=== PATIENT | female | born 1995 | race Caucasian/White ===

== ENCOUNTER 2023-09-01 09:38 | Outpatient (OUT) | payer OTHER, SELFPAY ==
--- NOTE | 2023-09-01 09:55 | US_ITS ---
The [address] [address] Patient Name: BARBY HERRING MRN: [id number] date: 1995 Sex: F Assigned Patient Location: US Current Patient Location: US Accession/Order Number: [id number] Exam Date: 09/01/2023 09:56 Report Date: 09/01/2023 10:35 At the request of: GAMAL ADAN Procedure: US pelvis w/ transvaginal EXAM: Pelvic ultrasound HISTORY: . menstrual bleeding problem N92.6 . COMPARISON: None. TECHNIQUE: Transabdominal and transvaginal scanning was performed FINDINGS: Scanning of the pelvis demonstrates an anteverted uterus measuring 9.6 x 4.6 x 5.6 cm. Endometrial complex measures 12 mm. Right ovary measures 4.8 x 3.2 x 3.5 cm. Color-flow is noted. Follicles are noted. Several of the follicles are in a peripheral location. Left ovary measures 4 x 3.1 x 2.7 cm. Color-flow is noted. Follicles are noted. Several of the follicles in a peripheral location. There is a 1.9 x 1.6 cm dominant follicle/simple cyst in the left ovary. No fluid is noted in the cul-de-sac. US/US pelvis w/ transvaginal IMPRESSION: 1. Normal-appearing anteverted uterus and endometrial complex. 2. Multiple follicles in both ovaries and a peripheral location. Findings could represent polycystic ovarian syndrome. Clinical correlation is suggested 3. There is a 1.9 x 1.6 cm dominant follicle/simple cyst in the left ovary. Electronically authenticated by: AZALIA VALLEJO Date: 09/01/2023 10:35
[2023-09-01 10:17] LABS: Basophils Percent Auto 0.5 % (0.2-2.0); Eosinophils Absolute Auto 0.1 10^3/uL (0.0-0.7); Eosinophils Percent Auto 1.6 % (0.9-7.0); Hematocrit 41.6 % (36.0-48.0); Hemoglobin 14.5 g/dL (12.0-16.0); Immature Granulocytes Abs Auto 0.01 10^3/uL (0.00-0.03); Immature Granulocytes Pct Auto 0.2 % (0.0-0.5); Lymphocytes Absolute Auto 2.1 10^3/uL (1.2-3.8); Lymphocytes Percent Auto 33.8 % (20.5-60.0); Mean Corpuscular HGB Conc 34.9 g/dL (29.9-35.2); Mean Corpuscular Hemoglobin 31.8 pg (26.7-34.0); Mean Corpuscular Volume 91.2 fL (81.0-99.0); Monocytes Absolute Auto 0.5 10^3/uL (0.3-0.8); Neutrophils Absolute Auto 3.4 10^3/uL (1.4-6.5); Neutrophils Percent Auto 55.9 % (43.0-75.0); Platelet Count 285 10^3/uL (150-450); Red Blood Count 4.56 10^6/uL (4.20-5.40); Red Cell Distribution Width 11.8 % (11.0-15.0); White Blood Count 6.1 10^3/uL (4.0-11.0)
[2023-09-01 10:38] LABS: Estimated Average Glucose 103 mg/dL; Glycohemoglobin A1C 5.2 % (4.5-6.2)
[2023-09-01 11:11] LABS: Thyroid Stimulating Hormone 2.412 uIU/mL (0.358-3.740)
== END 2023-09-01 09:39 | disposition home or self-care (01) ==
LOC: US 09:38
PROVIDERS: Visit Provider Obstetrics & Gynecology
DX: N92.6 Irregular menstruation, unspecified (principal); N83.292 Other ovarian cyst, left side
CPT/HCPCS: 36415; 76830; 76856; 83036; 84443; 85025

== ENCOUNTER 2024-03-23 08:05 | Outpatient (OUT) | payer OTHER, SELFPAY ==
--- NOTE | 2024-03-23 08:10 | US_ITS ---
[address] [address] Patient Name: BARBY HERRING MRN: [id number] date: 1995 Sex: F Assigned Patient Location: [facility] Current Patient Location: [facility] Accession/Order Number: [id number] Exam Date: 03/23/2024 08:11 Report Date: 03/23/2024 10:44 At the request of: GAMAL ADAN Procedure: US OB transvaginal EXAMINATION: US OB transvaginal HISTORY: BLEEDING IN EARLY COMPARISON: No relevant comparison available. FINDINGS: [place] intrauterine gestation Gestational sac: 2.58 cm, 7 weeks 2 days CRL: 7.6 mm, 6 weeks 5 days Yolk sac: 1.8 mm Heart rate: 112 beats minute Cervix: 4.6 cm, closed The ovaries are normal Clinical age: 7 weeks 1 day Clinical YASMIN: 11/08/2024 Ultrasound age: 6 weeks 5 days Ultrasound YASMIN: 11/11/2024 US/US OB transvaginal IMPRESSION: Viable [place] intrauterine gestation measuring 6 weeks 5 days Electronically authenticated by: AZALIA URBINA Date: 03/23/2024 10:44
--- OUTSIDE RECORDS SUMMARY | 2024-03-23 08:11 | XMS_ITS | CCD ---
Author Organization [facility] Care Team Providers Care Perianesthesia Manager Name Role Phone Unknown, Unknown Unavailable Unavailable Unavailable Unavailable NO FAMILY, PHYSICIAN Primary Care Provider Unava ilable DO Addi Ortega Attending Provider [phone] Darwin Jones Unavailable DARWIN JONES Primary Care Physician [phone] Lilly Luke Unavailable SHIRLEY Jones Primary Care Provider SHIRLEY Jones Attending Provider DO Saad Valera Attending Provider Ofelia Hester Unavailable [facility] AMIE Darwin Unavailable [phone] Sima Ross Unavailable [facility] AMIE, Darwin Unavailable SHIRLEY Jones Primary Care Provider SHIRLEY Hester Attending Provider SHIRLEY Jones Primary Care Provider SHIRLEY Hester Attending Provider [phone] Attending Provider [phone] REQUEST, DR HOBSON LISTED Primary Care Unavaila mari WAY ., DR YEUNG Attending Unavailable SEAMUS ., DR YEUNG Consulting Unavailable SEAMUS ., DR YEUNG Admitting Unavailable SHIRLEY Jones Primary Care Provider DO Addi Ortega [facility]ending [facility] Provider DO Jeovanny Quiros Emergency [facility] Provider [phone] DO Addi Ortega Attending Provider [facility] SHIRLEY Anaya Attending Provider [phone] [facility] Care Provider Brain Way Attending Provider [phone] [facility] Provider [phone] Attending Provider RUBY WHITTINGTON Attending Unavailable FRANCY GAN Attending Unavailable [facility] SHIRLEY Anaya Primary Care Provider Brain Way Attending Provider [facility] Primary Care Provider DO Brain Way Attending Provider [phone] Seamus, Brain Admitting Unavailable Darwin Jones Primary Care Unavailable Seamus, Brain Attending Unavailable Seamus, Brain Attending Unavailable Seamus, Brain Admitting [facility] Unavailable Darwin Jones [facility] Unavailable Jeovanny Quiros Admitting Unavailable Jeovanny Quiros Attending Unavailable Seamus, Brain Attending Unavailable [facility] Unavailable Seamus, Brain Admitting Unavailable Seamus, Brain Admitting Unavailable [facility] Unavailable Seamus, Brain Attending Unavailable [facility] Attending Un[facility] Admitting Unavailable [facility] Unavailable Seamus, Brain Admitting Unavailable Brain Way Attending Unavailable Brain Way Admitting Unavailable Darwin Jones Primary Care Unavailable Brain Way Attending Unavailable [place] Attending Unavailable Gabriel Curtis Attending Unavailable [place] Attending Unavailable [place] Attending Unavailable BRAIN WAY Attending Unavailable BRAIN WAY Attending Unavailable Allergies Allergy Classification Reported Allergen(s) Allergy Type Date of Onset Reaction(s) Facility (1 source) No Known Medication Allergies; Translations: [No Known Medication Allergies] Propensity to adverse reactions (disorder) [facility] Repository Medications Current Medications Medication Drug Class(es) Dates Sig (Normalized) Sig (Original) 3 ML semaglutide 1.34 MG/ML Pen Injector [Ozempic] (14 sources) Start: 09-02-2022 inject 1 mg by subcutaneous injection every week Ozempic (1 MG/DOSE) 4 MG/3ML 1mg Subcutaneous once weekly for 90 days Aug, Active Start: 09-02-2022 inject 1 mg by subcu taneous injection every week Ozempic (1 MG/DOSE) 4 MG/3ML 1mg Subcutaneous once weekly for 28 days Aug, Active inject 1 mg by subcu taneous injection every week Ozempic (1 MG/DOSE) 4 MG/3ML 1mg Subcutaneous once weekly Not-Taking inject 1 mg by subcu taneous injection every week Ozempic (1 MG/DOSE) 4 MG/3ML 1mg Subcutaneous once weekly Active acetaminophen 325 mg / HYDROcodone bitartrate 5 mg oral tablet (2 sources) Opioid Agonist Start: 06-03-2021 [place] 325 mg-5 mg oral tablet 2 tab(s), Oral, QID for pain, 18 tab(s), Refill(s) 0 Start Date: 06/03/21 Status: Ordered amoxicillin 875 mg oral tablet (1 source) Penicillin-class Antibacterial Start: 06-04-2022 take 1 tablet by mouth every twelve hours Amoxicillin 875 MG 1 tablet Orally Twice a day for 10 day(s) May, Active amoxicillin 875 mg / clavulanate 125 mg oral tablet (1 source) Penicillin-class Antibacterial Start: 09-29-2023 End: 10-09-2023 take 1 tablet by mouth every twelve hours Augmentin 875 mg oral tablet = 1 tab(s), Oral, q12hr, X 10 day(s), # 20 tab(s), Refills(s) 0, Pharmacy: [facility], 170.2, cm, 09/29/23 10:44:00 EST, Height/Length Dosing, 112, kg, 09/29/23 10:44:00 EST, Weight Dosing Start Date: 09/29/23 Stop Date: 10/09/23 Status: Ordered aspirin 81 mg oral capsule (2 sources) Platelet Aggregation Inhibitor, Nonsteroidal Anti-inflammatory Drug Start: 06-23-2021 take 1 mg by mouth every four hours aspirin 81 mg oral capsule mg cap(s), Oral, q4hr, Refills(s) 0 Start Date: 06/23/21 Status: Ordered cephalexin 500 mg oral capsule (20 sources) Cephalosporin Antibacterial Start: 03-22-2023 End: 03-29-2023 take 1 capsule by mouth every six hours Keflex 500 mg Cap 500 mg = 1 cap(s), Oral, q6hr, X 7 day(s), # 28 cap(s), Refills(s) 0, Pharmacy: [facility], 170.2, cm, 03/22/23 20:14:00 EDT, Height/Length Dosing, 113.5, kg, 03/22/23 20:14:00 EDT, Weight Dosing Start Date: 03/22/23 Stop Date: 03/29/23 Status: Ordered Start: 07-03-2021 take 1 capsule by [facility] twice daily Keflex 500 mg Cap 500 mg = 1 cap(s), Oral, BID, # 10 cap(s), Refills(s) 0, Pharmacy: [facility], 170, cm, 06/27/21 10:56:00 EST, Height/Length Dosing, 104, kg, 06/23/21 8:09:00 EST, Weight Dosing Start Date: 07/03/21 Status: Ordered Start: 12-29-2020 End: 10-07-2023 take 500 mg by mouth every eight hours Cephalexin Discontinued 500 MG PO Q8H 05 03December 29, 2020 12:00am October 07, 2023 7:06pm citalopram 20 mg oral tablet (20 sources) Serotonin Reuptake Inhibitor Start: 12-29-2020 End: 10-07-2023 Citalopram Discontinued MG TABLET December 29, 2020 12:00am October 07, 2023 7:06pm Start: 10-15-2019 citalopram 20 mg Tab Refills(s) 0 Start Date: 12/30/20 Status: Ordered Comment on above: Take 20 mg by mouth daily at bedtime. diphenhydrAMINE hydrochloride 25 mg oral capsule (1 source) Histamine-1 Receptor Antagonist Start: End: take 1 capsule by mouth three times daily as needed for headache diphenhydrAMINE 25 mg Cap 25 mg = 1 cap(s), Oral, TID, PRN Headache, Take medication with the Reglan for treatment of migraine headache, X 3 day(s), # 15 cap(s), Refills(s) 0 Start Date: 02/18/22 Stop Date: 02/21/22 Status: Ordered levothyroxine sodium 0.075 mg oral tablet (20 sources) l-Thyroxine Start: End: take 75 ug by mouth once daily Levothyroxine Active 75 MCG PO Daily October 07, 2023 1:00am Start: 04-17-2022 End: 09-28-2022 take 1 tablet by mouth once daily in the morning Levothyroxine Sodium 75 MCG 1 tablet in the morning on an empty stomach Orally Once a day for 30 day(s) Apr, Active Start: 04-17-2022 take 1 tablet by delphine th once daily in the morning Levothyroxine Sodium 75 MCG 1 tablet in the morning on an empty stomach Orally Once a day for 30 day(s) Apr, Active Start: 02-18-2022 take 1 tablet by delphine th once daily in the morning Levothyroxine Sodium 50 MCG 1 tablet in the morning on an empty stomach Orally Once a day for 30 day(s) Feb, Active Comment on above: Take 75 mcg by mouth once daily. Take 1 tablet by delphine th once daily. methylPREDNISolone 4 mg oral tablet (2 sources) Corticosteroid Start: 09-29-2023 End: 10-05-2023 Medrol Dosepack 4 mg Tab = 1 packet(s), Oral, As Directed, as directed on package labeling, X 6 day(s), # 21 tab(s), Refills(s) 0, Pharmacy: [facility], 170.2, cm, 09/29/23 10:44:00 EST, Height/Length Dosing, 112, kg, 09/29/23 10:44:00 EST, Weight Dosing Start Date: 09/29/23 Stop Date: 10/05/23 Status: Ordered Start: 06-04-2022 methylPREDNISo lone 4 MG as directed Orally May, Active metoclopramide 5 mg oral tablet (1 source) Dopamine-2 Receptor Antagonist Start: 02-18-2022 End: 02-21-2022 take 1 tablet by mouth every eight hours as needed for headache Reglan 5 mg Tab 5 mg = 1 tab(s), Oral, q8hr, PRN Headache, Take with Benadryl for treatment of migraine headache, X 3 day(s), # 9 tab(s), Refills(s) 0 Start Date: 02/18/22 Stop Date: 02/21/22 Status: Ordered Macrobid (2 sources) Nitrofuran Antibacterial Start: 06-23-2021 take 1 mg by mouth twice daily Macrobid mg, Oral, BID, Refills(s) 0 Start Date: 06/23/21 Status: Ordered omeprazole 20 mg delayed release oral tablet (6 sources) Proton Pump Inhibitor Start: 04-28-2023 take 1 tablet by mouth once daily Omeprazole Magnesium 20 MG 1 tablet 30 minutes before morning meal Orally Once a day for 30 days Apr, Active take 1 capsule by mouth once bacilio ly omeprazole (PRILOSEC) 20 mg capsule Take 20 mg by mouth once daily. 0 Active Comment on above: Take 20 mg by mouth once daily. ondansetron 4 mg oral tablet (6 sources) Serotonin-3 Receptor Antagonist Start: take 1 tablet by mouth every twelve hours Ondansetron HCl 4 MG 1 tablet as needed Orally two times a day for 3 days Feb, Active Start: 06-23-2021 take 1 mg by mouth e very eight hours Zofran 4 mg Tab mg tab(s), Oral, q8hr, Refills(s) 0 Start Date: 06/23/21 Status: Ordered 12 hr orphenadrine citrate 100 mg extended release oral tablet (1 source) Muscle Relaxant Start: 02-18-2022 End: 02-21-2022 take 1 tablet by mouth twice daily as needed for headache orphenadrine 100 mg ER Tab 100 mg = 1 tab(s), Oral, BID, PRN Headache, Take as needed for headache. This is a muscle relaxant medication for help with tension headache., X 3 day(s), # 6 tab(s), Refills(s) 0 Start Date: 02/18/22 Stop Date: 02/21/22 Status: Ordered [id number] Fumarate-Fa () 28-800 mg-mcg Tablet (18 sources) Start: 12-29-2020 [id number] Fumarate-Fa () 28-800 mg-mcg Tablet Active TAB PO December 29, 2020 3:43pm Start: 12-29-2020 End: 10-07-2023 [id number] Fumarate-Fa ( ) 28-800 mg-mcg Tablet Discontinued TAB PO December 29, 2020 12:00am October 07, 2023 7:06pm Start: 12-29-2020 [id number] Fumarate-Fa () 28-800 mg-mcg Tablet Active TAB PO December 28, 2020 11:00pm Start: 12-29-2020 [id number] Fumarate-Fa () 28-800 mg-mcg Tablet Active TAB PO December 29, 2020 12:00am promethazine hydrochloride 12.5 mg oral tablet (20 sources) Phenothiazine Start: 12-30-2020 promethazine 1 2.5 mg oral tablet Refills(s) 0 Start Date: 12/30/20 Status: Ordered Start: 12-29-2020 End: 10-07-2023 Promethazine Discontinued TA BLET December 29, 2020 12:00am October 07, 2023 7:06pm SUMAtriptan 50 mg oral tablet (4 sources) Serotonin-1b and Serotonin-1d Receptor Agonist Start: 02-18-2022 take 1 tablet by mouth every two hours as needed, then take 1 tablet by mouth once daily as needed SUMAtriptan Succinate 50 MG 1 tablet at least 2 hours between doses as needed Orally Once a day for 10 days Feb, Active Unisom Sleep Gels (2 sources) Start: 12-30-2020 take 1 mg by mouth once Unisom Sleep Gels mg, Oral, Once, Refills(s) 0 Start Date: 12/30/20 Status: Ordered Vitamin B12 1000 MCG (11 sources) take 1 tablet by mouth once daily Vitamin B12 1000 MCG 1 tablet Orally Once a day Active Vitamin B6 100 mg Tab (4 sources) Start: 12-30-2020 take 1 tablet by mouth once daily Vitamin B6 100 mg Tab mg tab(s), Oral, Daily, Refills(s) 0 Start Date: 12/30/20 Status: Ordered Vitamin D3 (6 sources) Vitamin D3 OTC, daily Active Completed/Discontinued Medications Medication Drug Class(es) Dates Sig (Normalized) Sig (Original) cholecalciferol 0.05 mg oral capsule (9 sources) Vitamin D Start: 10-07-2023 Cholecalciferol, Vitamin D3, 50 mcg (2,000 unit) cap cholecalciferol (vitamin D3) Active PO October 07, 2023 1:00am 0 10/07/2023 Active Start: 10-07-2023 cholecalcifero l (vitamin D3) Active PO October 07, 2023 1:00am Comment on above: cholecalciferol (vit galaviz D3) Active PO October 07, 2023 1:00am drospirenone / Ethinyl Estradiol (20 sources) Progestin, Estrogen Start: take 1 tablet by mouth once daily Drospirenone-Ethi nyl Estradiol 3-0.03 mg per tablet Take 1 tablet by mouth once daily. 0 06/19/2022 Active take 1 tablet by delphine th every twenty-four hours Drospirenone-Ethinyl Estradiol 3-0.03 MG 1 tablet Orally Once a day Active Comment on above: Take 1 tablet by delphine th once daily. folic acid 0.4 mg / vitamin b12 1 mg sublingual tablet (1 source) Vitamin B12 cyanocobalamin/f olic acid (VITAMIN [id number] ACID) 1,000-400 mcg lozg Take by mouth every 24 hours. 0 Active Comment on above: Take by mouth every 24 hours. 3 ml liraglutide 6 mg/ml pen injector (5 sources) GLP-1 Receptor Agonist Start: 05-20-2022 Victoza 18 MG/3ML Week one- 0.6mg, Week two- 1.2mg, Week three on- 1.8mg Subcutaneous Daily for 30 days May, Not-Taking mecobalamin 1 mg chewable tablet (9 sources) Start: 10-07-2023 mecobalamin, vitamin B12, 1,000 mcg chew mecobalamin (vitamin B12) Active PO October 07, 2023 1:00am 0 10/07/2023 Active Start: 10-07-2023 mecobalamin (v itamin B12) Active PO October 07, 2023 1:00am Comment on above: mecobalamin (vitamin B12) Active PO October 07, 2023 1:00am OZEMPIC 1 mg/dose (4 mg/3 mL) pen (4 sources) Start: 2022 inject 1 mg by subcutaneous injection every week OZEMPIC 1 mg/dose (4 mg/3 mL) pen Administer 1mg subcutaneously once weekly 0 09/02/2022 Active Comment on above: Administer 1mg subcu taneously once weekly phentermine hydrochloride 37.5 mg oral tablet (20 sources) Sympathomimetic Amine Anorectic Start: 2023 End: 2023 take 37.5 mg by mouth once daily Phentermine Discontinued 37.5 MG PO Daily November 25, 2023 9:21am December 24, 2023 10:23am BMI 37.7, ok to refill at day 35 due to provider out of office Start: 09-21-2023 [facility] Phentermine HCl 37.5 MG 1 tablet before breakfast Orally Once a day for 30 days Sep, Active Start: 08-25-2023 [facility] Phentermine HCl 37.5 MG 1 tablet before breakfast Orally Once a day for 30 days Aug, Active Start: 06-23-2023 [facility] Phentermine HCl 37.5 MG 1 tablet before breakfast Orally Once a day for 30 days Jun, Active Start: 05-26-2023 take 1 capsule by [facility] every twenty-four hours Phentermine HCl 37.5 MG 1 capsule Orally Once a day for 30 days May, Active Comment on above: Take 37.5 mg by mout h. Vitamin (14 sources) Vitamin OTC Not-Taking Vitamin OTC Active 0.25 mg, 0.5 mg dose 1.5 ml semaglutide 1.34 mg/ml pen injector (20 sources) Start: 05-18-2022 End: 09-28-2022 Ozempic (0.25 or 0.5 MG/DOSE) 2 MG/1.5ML 0.25mg once weekly for 4 weeks, then 0.5mg once weekly for 4 weeks Subcutaneous Once Weekly for 28 days Jun, Not-Taking Comment on above: Inject subcutaneousl y. vitamin b12 1 mg oral tablet (3 sources) Vitamin B12 cyanocobalamin ( VITAMIN B-12) 1,000 mcg tab Take by mouth every 24 hours. 0 Active take 1 tablet by delphine th every twenty-four hours Vitamin B12 1000 MCG 1 tablet Orally Once a day Active Comment on above: Take by mouth every 24 hours. vitamin b6 100 mg oral tablet (2 sources) Start: 12-30-2020 pyridoxine, vitamin B6, (VITAMIN B-6) 100 mg tablet Take by mouth. 0 12/30/2020 Active Comment on above: Take by mouth. Problems Active Problems Problem Classification Problem Date Documented Date Episodic/Chronic Abdominal pain (2 sources) Abdominal pain; Translations: [Unspecified abdominal pain] Onset: 3 Episodic Administrative/social admission (3 sources) Persons encountering health services in other specified circumstances Episodic Anxiety disorders (20 sources) Anxiety; Translations: [Anxiety disorder, unspecified] Onset: 2 03-12-2020 Chronic Calculus of urinary tract (20 sources) Kidney stone; Translations: [Calculus of kidney] Onset: 2 06-23-2021 Episodic Coma; stupor; and brain damage (20 sources) Excessive daytime sleepiness - normal night sleep; Translations: [Somnolence] Episodic Esophageal disorders (20 sources) Gastroesophageal reflux disease without esophagitis; Translations: [Gastro-esophageal reflux disease without esophagitis] Onset: 4 Chronic Female infertility (6 sources) Female infertility; Translations: [Female infertility, unspecified] Onset: 4 11-18-2023 Chronic Headache; including migraine (5 sources) Migraine; Translations: [Migraine, unspecified, not intractable, without status migrainosus] Onset: 1 07-14-2022 Chronic Headache; including migraine (1 source) Headache; Translations: [Headache, unspecified] Onset: 2 Episodic Hemorrhage during ; abruptio placenta; placenta previa (2 sources) Antepartum hemorrhage; Translations: [Other antepartum hemorrhage, unspecified trimester] Onset: 4 Episodic Immunizations and screening for infectious disease (1 source) Encounter for screening for human papillomavirus (HPV); Translations: [ENC SCREENING HUMAN PAPILLOMAVIRUS] Onset: 3 Episodic Menstrual disorders (3 sources) Irregular periods; Translations: [Irregular menstruation, unspecified] Onset: 4 11-18-2023 Chronic Mood disorders (20 sources) Mild depression; Translations: [Major depressive disorder, single episode, unspecified] Chronic Nausea and vomiting (1 source) Nausea with vomiting, unspecified Episodic Nonspecific chest pain (2 sources) Atypical chest pain; Translations: [Other chest pain] Episodic Other aftercare (1 source) Encounter for follow-up examination after completed treatment for conditions other than malignant neoplasm Episodic Other and unspecified benign neoplasm (15 sources) Parathyroid adenoma; 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] Onset: 4 10-07-2023 Episodic Other complications of ; puerperium affecting management of mother (11 sources) cardiomyopathy; 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] Onset: 4 10-07-2023 Episodic Other complications of (18 sources) Hyperemesis gravidarum; Translations: [Mild hyperemesis gravidarum] 12-29-2020 Episodic Other complications of (18 sources) Urinary tract infection in ; Translations: [Unspecified infection of urinary tract in , unspecified trimester] 12-29-2020 Episodic Other gastrointestinal disorders (20 sources) Pharyngeal dysphagia; Translations: [Dysphagia, pharyngeal phase] Episodic Other gastrointestinal disorders (18 sources) Dysphagia; Translations: [Dysphagia, pharyngoesophageal phase] 06-08-2023 Episodic Other gastrointestinal disorders (1 source) Dysphagia, pharyngoesophageal phase Episodic Other gastrointestinal disorders (1 source) Dysphagia, unspecified Episodic Other nutritional; endocrine; and metabolic disorders (20 sources) Obesity; Translations: [Obesity, unspecified] 06-20-2020 Chronic Other nutritional; endocrine; and metabolic disorders (20 sources) Morbid obesity; Translations: [Morbid (severe) obesity due to excess calories] Chronic Other nutritional; endocrine; and metabolic disorders (8 sources) Morbid (severe) obesity due to excess calories Chronic Other nutritional; endocrine; and metabolic disorders (20 sources) Body mass index 40+ - severely obese; Translations: [Body mass index (BMI) 40.0-44.9, adult] Chronic Other nutritional; endocrine; and metabolic disorders (20 sources) Obese class II; Translations: [Body mass index (BMI) 39.0-39.9, adult] Onset: 4 Chronic Other nutritional; endocrine; and metabolic disorders (20 sources) Obesity, unspecified; Translations: [Obesity, unspecified] Onset: 4 Chronic Other nutritional; endocrine; and metabolic disorders (2 sources) Body mass index (BMI) 39.0-39.9, adult Chronic Other nutritional; endocrine; and metabolic disorders (2 sources) Body mass index (BMI) 38.0-38.9, adult Chronic Other nutritional; endocrine; and metabolic disorders (1 source) Body mass index 30+ - obesity; Translations: [Body mass index (BMI) 38.0-38.9, adult] Chronic Other nutritional; endocrine; and metabolic disorders (7 sources) Drug-induced obesity; 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] 11-25-2023 Chronic Other nutritional; endocrine; and metabolic disorders (17 sources) Weight gain; Translations: [Abnormal weight gain] 03-12-2020 Episodic Other nutritional; endocrine; and metabolic disorders (1 source) Abnormal weight gain Episodic Other screening for suspected conditions (not mental disorders or infectious disease) (4 sources) Encounter for screening for malignant neoplasm of cervix; Translations: [ENC SCREENING MALIG NEOPLASM CERV] Onset: 3 Episodic Other upper respiratory infections (1 source) Chronic sinusitis; Translations: [Chronic sinusitis, unspecified] Onset: 4 Chronic Other upper respiratory infections (1 source) Acute pharyngitis, unspecified Episodic Thyroid disorders (20 sources) Hypothyroidism; Translations: [Hypothyroidism, unspecified] Onset: 2 Resolved: 2 Chronic Unclassified (1 source) Dysphagia, pharyngoesophageal phase; Translations: [Dysphagia, pharyngoesophageal phase] Onset: 3 Urinary tract infections (1 source) Urinary tract infectious disease; Translations: [Urinary tract infection, site not specified] Onset: 3 Episodic Past or Other Problems Problem Classification Problem Date Documented Da te Episodic/Chronic Other gastrointestinal disorders (1 source) Dysphagia, pharyngeal phase Onset: 02-18-2022 Resolved: 02-18-2022 Episodic Spondylosis; intervertebral disc disorders; other back problems (2 sources) Backache; Translations: [Dorsalgia, unspecified] Onset: 03-22-2023 11-18-2023 Episodic Unclassified (2 sources) Never smoked tobacco; Translations: [Never a smoker] Unclassified (1 source) Cough R05.9 Results Test Name Value Interpretation Reference Range Facility ED Note-Physicianon 03-20-20 ED Note-Physician ED Note-Physician Basic Information Time Seen: Sunny BECKHAM, Hector Rodriguez 03/18/2024 08:14 Chief Complaint pt reports being 6wks pregant and began to have light spotting and cramping. states neirther are too bad . Denies any n/v/d or abd pain besides cramping. History of Present Illness A 28-year-old female who is reports to the emergency department with complaints of some light spotting and lower abdominal cramping while being approximately 6 weeks . She states that neither are very significant, but is enough to make her worried and want to get evaluated. She denies any nausea vomiting diarrhea or abdominal pain besides the cramping. She states that she does follow-up with Dr. Way. Has had vaginal bleeding in the past with previous pregnancies. She states that she has had RhoGAM injections before. Review of Systems No other aggravating or relieving factors no other associated symptoms no other prior treatments or complaints. Family: Reviewed and noncontributory Social: lives at home Review of systems negative unless otherwise specified in the HPI. Physical Exam Vitals & Measurements T: 37 ?C(Oral) HR: 98(Peripheral) RR: 17 BP: 135/91 SpO2: 98% HT: 170 cm WT: 100 kg BMI: 34.6 General: The patient appears well and in no apparent distress. Patient is resting comfortably on bed. Skin: Warm, dry, no pallor noted. Head: Normocephalic, atraumatic Neck: No JVD Eye: PERRLA, EOMI ENT: Moist mucus membranes Cardiovascular: Regular rate normal peripheral perfusion Respiratory: No respiratory distress no accessory muscle use no obvious audible wheezing Chest Wall: no deformity Musculoskeletal: normal ROM, no deformity, no swelling GI: No obvious distention soft nontender nondistended no guarding rebounding or rigidity Neurological: A&O moves all extremities equal strength and symmetry Psychiatric: Cooperative and appropriate Medical Decision Making MEDICAL DECISION MAKING Number and Complexity of Problems Differential Diagnosis: [] [facility] Data External documents reviewed: [] My EKG interpretation: [] My CT interpretation: [] My X-ray interpretation: [] My Ultrasound interpretation: reviewed Decision rules/scores evaluated: [] Discussed with: [] Treatment and Disposition ED Course: 28-year-old female reports to the emergency department with complaints of vaginal bleeding and some abdominal cramping. States has been going on for last couple of days. Reports history of having RhoGAM injections before. Examination of the patient relatively benign. No acute findings. Due to concerns we did do a full workup. Lab work reviewed noted. Her beta quantitative level was over 46,000. Urine was negative for any signs of UTI. We did get an ultrasound of the patient, that did show a small subchorionic bleed, but did see a gestational sac, measuring 6 weeks and 3 days. Discussed with the patient. Discussed follow-up with her NO EXPERIENCE which she will do. Discussed return precautions. Follow-up with your primary care provider in 3 to 5 days. If symptoms worsen, do not improve, or new symptoms arise please report back to emergency department for further evaluation. The patient was understanding and agreeable to plan moving forward. Shared decision making: [] Code status: [] Assessment/Plan Subchorionic bleed (O46.8X9: Other antepartum hemorrhage, unspecified trimester) Threatened (O20.0: Threatened ) Orders: RHo (D) immune globulin, 300 mcg = 2 mL, Injection, IntraMuscular, Once, Stop date 03/18/24 11:27:00 EDT, STAT, Start date 03/18/24 11:27:00 EDT, 03/18/24 11:27:00 EDT ABO/Rh Basic Metabolic Panel Beta hCG Quantitative CBC w/ Auto Diff eGFR Extra Blue Tube Extra SST Tube UA with Cult Rflx US 1st Trimester US Transvaginal Medications Administered Given RHo (D) immune globulin 150 mcg/mL injectable solution, 300 mcg, IntraMuscular Disposition Plan Patient Discharge Condition Stable Discharge Disposition To home Discharge Prescription List Prescriptions No active prescription medications Follow-up With When Contact Information Rogelio Nath In 3 days 03/21/2024 EDT [address] [facility] [address] [place] [address]- Business (1) Additional Instructions: DARWIN JONES In 3 days [address] [facility] [facility] [facility] [place] [place] [phone] Business (1) Additional Instructions: Patient Education Threatened Miscarriage Subchorionic Hematoma Attestation Patient seen and evaluated by the physician evaluation assistant. Attending physician was present in the emergency department and supervised care. This visit was performed by both the physician and an APC. I performed all aspects of the MDM as documented. This report was transcribed using voice recognition software. Every effort was made to ensure accuracy, however, inadvertently computerized delivery representative mistakes may be present. Appropriate healthc (more content not included)... Normal [facility] Comment on above: Result Comment: Elec tronically Signed By: Hector Correa PA-C\.br\Date and Time Signed: 03/18/24 12:11 EDT\.br\Electronically Co-Signed By: Toan Lake DO\.br\Date and Time Co-Signed: 03/20/24 07:17 EDT ABO/Rhon 03-18-2024 ABO/Rh Negative Invalid Interpretation Code [facility] Comment on above: Performed By: #### 2 [id number] #### [facility] [address] [place] [address] BLOOD BANKOrdered By: Nikky Brennan on 03-18-2024 ABO/Rh Interp Negative Invalid Interpretation Code [facility] BB Subsection BMPon 08-03-2024 Anion gap [Moles/Vol] 12 mmol/L Normal 6-16 [facility] Comment on above: Performed By: #### 2 [id number] #### [facility] [address] [place] [address] Calcium [Mass/Vol] 9.2 mg/dL Normal 8.9-11.1 [facility] Comment on above: Performed By: #### 2 [id number] #### [facility] [address] [place] [address] Chloride [Moles/Vol] 105 mmol/L Normal 101-111 [facility] Comment on above: Performed By: #### 2 [id number] #### [facility] [address] [place] [address] CO2 [Moles/Vol] 23 mmol/L Normal 21-31 [facility] Comment on above: Performed By: #### 2 [id number] #### [facility] [address] [place] [address] Creatinine [Mass/Vol] 0.5 mg/dL Normal 0.5-1.3 [facility] Comment on above: Performed By: #### 2 [id number] #### [facility] [address] [place] [address] Glucose [Mass/Vol] 92 mg/dL Normal 55-199 [facility] Comment on above: Performed By: #### 2 [id number] #### [facility] [address] [place] [address] Potassium [Moles/Vol] 3.8 mmol/L Normal 3.5-5.3 [facility] Comment on above: Performed By: #### 2 [id number] #### [facility] [address] [place] [address] Sodium [Moles/Vol] 136 mmol/L Normal 135-145 [facility] Comment on above: Performed By: #### 2 [id number] #### [facility] [address] [place] [address] Urea nitrogen [Mass/Vol] 9 mg/dL Normal 5-21 [facility] Comment on above: Performed By: #### 2 [id number] #### [facility] [address] [place] [address] Urea nitrogen/Creatinine [Mass ratio] 18 No Units Normal 10-20 [facility] Comment on above: Performed By: #### 2 [id number] #### [facility] [address] [place] [address] BhCG Quanton 03-18-2024 [place] [address] m[IU]/mL High 1-3 [facility] Comment on above: Result Comment: 'F N ON < 1 - 3' ' 0.2 - 1 WEEK = 5 TO 50' ' 1 - 2 WEEKS = 50 - 500' ' 2 - 3 WEEKS = 100 - 5000' ' 3 - 4 WEEKS = 500 - 50920' ' 4 - 5 WEEKS = 1000 - 94960' ' 5 - 6 WEEKS = 73231 - 034628' ' 6 - 8 WEEKS = 30291 - 100829' ' 8 - 12 WEEKS = 93147 - 256036' Performed By: #### 2 [id number] #### [facility] [address] [place] [address] CBC w/ Auto Diffon 4 Basophils/100 WBC (Bld) 0.6 % Normal 0.0-2.0 [facility] Comment on above: Performed By: #### 2 [id number] #### [facility] [address] [place] [address] Basophils/Leukocytes Auto (Bld) [Pure # fraction] 0.0 E9/L Normal 0.0-0.2 [facility] Comment on above: Performed By: #### 2 [id number] #### [facility] [address] [place] [address] Eosinophils (Bld) [#/Vol] 0.0 E9/L Normal 0.0-0.5 [facility] Comment on above: Performed By: #### 2 [id number] #### [facility] [address] [place] [address] Eosinophils/100 WBC (Bld) 0.5 % Normal 0.0-8.0 [facility] Comment on above: Performed By: #### 2 [id number] #### [facility] [address] [place] [address] Erythrocyte distribution width (RBC) [Ratio] 12.5 % Normal 10.9-14.2 [facility] Comment on above: Performed By: #### 2 [id number] #### [facility] [address] [place] [address] Hematocrit (Bld) [Volume fraction] 40.2 % Normal 34.0-46.0 [facility] Comment on above: Performed By: #### 2 [id number] #### [facility] [address] [place] [address] Hemoglobin (Bld) [Mass/Vol] 13.8 g/dL Normal 12.0-16.0 [facility] Comment on above: Performed By: #### 2 [id number] #### [facility] [address] [place] [address] Lymphocytes (Bld) [#/Vol] 2.4 E9/L Normal 1.0-4.0 [facility] Comment on above: Performed By: #### 2 [id number] #### [facility] [address] [place] [address] Lymphocytes/100 WBC (Bld) 28.4 % Normal 14.0-50.0 [facility] Comment on above: Performed By: #### 2 [id number] #### [facility] [address] [place] [address] MCH (RBC) [Entitic mass] 32.3 pg Normal 27.0-34.0 [facility] Comment on above: Performed By: #### 2 [id number] #### [facility] [address] [place] [address] MCHC (RBC) [Mass/Vol] 34.3 g/dL Normal 31.4-36.0 [facility] Comment on above: Performed By: #### 2 [id number] #### [facility] [address] [place] [address] MCV (RBC) [Entitic vol] 94.2 fL Normal 80.0-100.0 [facility] Comment on above: Performed By: #### 2 [id number] #### [facility] [address] [place] [address] Monocytes (Bld) [#/Vol] 0.4 E9/L Normal 0.2-1.0 [facility] Comment on above: Performed By: #### 2 [id number] #### [facility] [address] [place] [address] Neutrophils (Bld) [#/Vol] 5.4 E9/L Normal 2.0-7.5 [facility] Comment on above: Performed By: #### 2 681014 #### [facility] [address] [place] [address] Neutrophils/100 WBC (Bld) 65.4 % Normal 36.0-75.0 [facility] Comment on above: Performed By: #### 2 [id number] #### [facility] [address] [place] [address] Platelet mean volume (Bld) [Entitic vol] 8.5 fL Normal 6.4-10.8 [facility] Comment on above: Performed By: #### 2 [id number] #### [facility] [address] [place] [address] Platelets (Bld) [#/Vol] 249.0 E9/L Normal 150.0-500.0 [facility] Comment on above: Performed By: #### 2 [id number] #### [facility] [address] [place] [address] RBC (Bld) [#/Vol] 4.3 E12/L Normal 4.3-5.9 [facility] Comment on above: Performed By: #### 2 [id number] #### [facility] [address] [place] [address] WBC corrected for nucl RBC Auto (Bld) [#/Vol] 8.3 E9/L Normal 4.0-11.0 [facility] Comment on above: Performed By: #### 2 [id number] #### [facility] [address] [place] [address] CHEMISTRYOrdered By: SYSTEM SYSTEM on 03-18-2024 Anion gap [Moles/Vol] 12 mmol/L Normal 6 - 16 mEq/L [facility] Calcium [Mass/Vol] 9.2 mg/dL Normal 8.9 - 11. 1 mg/dL [facility] Chloride [Moles/Vol] 105 mmol/L Normal 101 - 1 11 mmol/L [facility] CO2 [Moles/Vol] 23 mmol/L Normal 21 - 31 mmol/L [facility] Creatinine [Mass/Vol] 0.5 mg/dL Normal 0.5 - 1.3 mg/dL [facility] eGFR 131 mL/min/1.73 m2 Normal >=59mL/mi n/ 1.73 m2 [facility] Glucose [Mass/Vol] 92 mg/dL Normal 55 - 199 mg/dL [facility] [place] [address] m[IU]/mL High 1 - 3 mIU/mL [facility] Comment on above: Result Comment: 'F N ON < 1 - 3' ' 0.2 - 1 WEEK = 5 TO 50' ' 1 - 2 WEEKS = 50 - 500' ' 2 - 3 WEEKS = 100 - 5000' ' 3 - 4 WEEKS = 500 - 96276' ' 4 - 5 WEEKS = 1000 - 76840' ' 5 - 6 WEEKS = 48847 - 010051' ' 6 - 8 WEEKS = 96163 - 400072' ' 8 - 12 WEEKS = 77713 - 077069' Potassium [Moles/Vol] 3.8 mmol/L Normal 3.5 - 5.3 mmol/L [facility] Sodium [Moles/Vol] 136 mmol/L Normal 135 - 145 mmol/L [facility] Urea nitrogen [Mass/Vol] 9 mg/dL Normal 5 - 21 mg/dL [facility] Urea nitrogen/Creatinine [Mass ratio] 18 mg/mg Normal 10 - 20 [facility] ED Clinical Summaryon 2023 ED Clinical Summary ED Clinical Summary [address] [address] ED Clinical Summary Person Information Name: TAWNYA HERRING [facility] Age: 28 Years : 1995 Sex: Female Language: Malagasy PCP: DARWIN JONES CNP Marital Status: Single Phone: [phone] Visit Id: Visit Reason: Vaginal bleeding - < 20 wks ; 6WKS PREG, CRAMPING AND BLEEDING Speciality: Acuity: 3 Enc Type: Emergency Med Service: Emergency Arrival: 03/18/2024 08:06:19 Discharge: 03/18/2024 12:14:56 LOS: 000 04:08 Checkin: 03/18/2024 08:06:19 Checkout: 03/18/2024 12:14:56 Dispo Type: Home (Routine DC) EVENTS: Event Name Event Status Request Date/Time Start Date/Time Complete Date/Time Arrive Complete 03/18/2024 08:06:19 03/18/2024 08:06:19 03/18/2024 08:06:19 Document Home Meds Request 03/18/2024 08:06:19 Triage Complete 03/18/2024 08:06:19 03/18/2024 08:12:57 03/18/2024 08:12:57 Bed Assign Complete 03/18/2024 08:08:31 03/18/2024 08:08:31 03/18/2024 08:08:31 Dr Exam Complete 03/18/2024 08:08:31 03/18/2024 08:10:31 03/18/2024 08:10:31 RN Exam Complete 03/18/2024 08:08:31 03/18/2024 08:15:49 03/18/2024 08:15:49 Registration Complete 03/18/2024 08:10:31 03/18/2024 08:15:08 03/18/2024 08:15:08 Dr Exam Complete 03/18/2024 08:14:42 03/18/2024 08:14:42 03/18/2024 08:14:42 Reg Complete Request 03/18/2024 08:15:08 Reg Bed Request Complete 03/18/2024 08:15:08 03/18/2024 08:15:08 03/18/2024 08:15:08 Pending Labs Complete 03/18/2024 08:15:44 03/18/2024 09:33:12 Lab Complete 03/18/2024 08:15:44 03/18/2024 09:33:12 Blood Collect Request 03/18/2024 08:15:44 Dr Exam Complete 03/18/2024 08:25:07 03/18/2024 08:25:07 03/18/2024 08:25:07 Registration Request 03/18/2024 08:25:07 Pending Labs Complete 03/18/2024 08:41:44 03/18/2024 08:41:44 03/18/2024 09:06:05 Lab Complete 03/18/2024 08:41:44 03/18/2024 08:41:44 03/18/2024 09:06:05 US Complete 03/18/2024 09:34:10 03/18/2024 10:47:49 03/18/2024 11:34:26 Pending Labs Complete 03/18/2024 10:26:54 03/18/2024 10:26:54 03/18/2024 10:26:55 US Complete 03/18/2024 11:05:18 03/18/2024 11:05:33 03/18/2024 11:41:27 Meds Admin Complete 03/18/2024 11:27:31 03/18/2024 11:50:07 Discharge Complete 03/18/2024 11:55:21 03/18/2024 12:15:02 03/18/2024 12:15:02 Transfer Complete 03/18/2024 12:15:02 03/18/2024 12:15:02 03/18/2024 12:15:02 ADDRESS: [address] [place] [phone] [facility] DOC NOTES: MEDICAL INFORMATION: Prescriptions Given: Medications to Continue with No Changes Other Medications citalopram (CeleXA 20 mg Tab) 1 Tablets By Mouth every day. PATIENT EDUCATION INFORMATION: Instructions: Threatened Miscarriage; Subchorionic Hematoma Follow up: With: Address: When: Rogelio [address], [address], [place] [address] Business (1) In 3 days 03/21/2024 With: Address: When: DARWIN JONES[address] [place] [phone] Business (1) In 3 days DIAGNOSIS: Subchorionic bleed; Threatened Normal [facility] ED Patient Summaryon ED Patient Summary ED Patient Summary [address] [address] Patient Discharge Instructions Person Information Name: TAWNYA HERRING Age: 28 Years Arrival Date: 03/18/2024 08:06:19 Discharge Diagnosis: Subchorionic bleed; Threatened Primary Care Physician: DARWIN JONES CNP Provider Information Primary Provider: Toan Lake DO Advanced Contract Negotiation Manager:None The exam and treatment you received in the Emergency Department were for an urgent problem and are not intended as complete care. It is important that you follow up with a doctor, nurse practitioner, or physician?s evaluation assistant for ongoing care. If your symptoms become worse or you do not improve as expected and you are unable to reach your usual health care provider, you should return to the Emergency Department. We are available 24 hours a day. TAWNYA HERRING has been given the following list of patient education materials, prescriptions and follow-up instructions: Follow-up Instructions: With: Address: When: Rogelio [address], [address], [place] [address] Business (1) In 3 days 03/21/2024 With: Address: When: D[address]WIN [address] [place] [place] [phone] Business (1) In 3 days In the event that this physician does not participate in your insurance network, please consult with your insurance company to find a nearby participating provider. Patient Education Materials: Threatened Miscarriage; Subchorionic Hematoma A MESSAGE TO ALL PATIENTS REGARDING OPIOIDS PRESCRIPTION OPIOIDS: WHAT YOU NEED TO KNOW Prescription opioids can be used to help relieve [id number] pain and are often prescribed following a surgery or injury, or for certain health conditions. These medications can be an important part of the treatment but also come with serious risks. It is important to work with your healthcare provider to make sure you are getting the safest, most effective care. WHAT ARE THE RISKS AND SIDE EFFECTS OF OPIOID USE? Prescription opioids carry serious risks of addiction and overdose, especially with prolonged use. An opioid overdose, often marked by slowed breathing, can cause sudden . The use of prescription opioids can have a number of side effects as well, even when taken as directed: ? Tolerance?meaning you might need to take more of the medication for the same pain relief ? Physical dependence?meaning you have symptoms of withdrawal when a medication is stopped ? Increased sensitivity to pain ? Constipation ? Nausea, vomiting, and dry mouth ? Sleepiness and dizziness ? Confusion ? Depression ? Low levels of testosterone that can result in lower sex drive, energy, and strength ? Itching and sweating RISKS ARE GREATER WITH: ? History of drug misuse, substance use disorder, or overdose ? Mental health conditions (such as depression or anxiety) ? Sleep apnea ? Older age (65 years and older) ? Avoid alcohol while taking prescription opioids. Also, unless specifically advised by your health care provider, medications to avoid include: ? Benzodiazepines (such as Xanax or Valium) ? Muscle relaxants (such as Soma or Flexeril) ? Hypnotics (such as Ambien or Lunesta) ? Other prescription opioids KNOW YOUR OPTIONS Talk to your health care provider about ways to manage your pain that don?t involve prescription opioids. Some of these options may actually work better and have fewer risks and side effects. Options may include: ? Pain relievers such as acetaminophen, ibuprofen, and naproxen ? Some medication that are also used for depression or seizures ? Physical therapy and exercise ? Cognitive behavioral therapy, a psychological, goal-directed approach, in which patients learn how to modify physical, behavioral, and emotional triggers of pain and stress. IF YOU ARE PRESCRIBED OPIOIDS FOR PAIN: ? Never take opioids in greater amounts or more often than prescribed. ? Follow up with your primary health care provider. o Work together to create a plan on how to manage your pain. o Talk about ways to help manage your pain that don?t involve prescription opioids. o Talk about any and all concerns and side effects. ? Help prevent misuse and abuse o Never sell or share prescription opioids. o Never use another person?s prescription opioids. ? Store prescription opioids in a secure place and out of reach of others (this may include visitors, children, friends, and family). ? Safely dispose of unused prescription opioids: Find your community drug take-back program or your pharmacy mail-back program, or flush them down the toilet, following guidance from the Food and Drug Administration (www.fda.gov/Drugs/Re sourcesForYou). ? Visit www.cdc.gov/drugoverd ose to learn about the risks of opioids abuse and overdose. ? If you be (more content not included)... Normal [facility] HEMATOLOGYOrdered By: SYSTEM SYSTEM on 03-18-2024 Basophils/100 WBC (Bld) 0.6 % Normal 0.0 - 2.0 % [facility] Basophils/Leukocytes Auto (Bld) [Pure # fraction] 0.0 E9/L Normal 0.0 - 0.2 E9/L [facility] Eosinophils (Bld) [#/Vol] 0.0 E9/L Normal 0.0 - 0.5 E9/L [facility] Eosinophils/100 WBC (Bld) 0.5 % Normal 0.0 - 8.0 % [facility] Erythrocyte distribution width (RBC) [Ratio] 12.5 % Normal 10.9 - 14.2 % [facility] Hematocrit (Bld) [Volume fraction] 40.2 % Normal 34.0 - 46.0 % [facility] Hemoglobin (Bld) [Mass/Vol] 13.8 g/dL Normal 12.0 - 16.0 gm/dL [facility] Lymphocytes (Bld) [#/Vol] 2.4 E9/L Normal 1.0 - 4.0 E9/L [facility] Lymphocytes/100 WBC (Bld) 28.4 % Normal 14.0 - 50.0 % [facility] MCH (RBC) [Entitic mass] 32.3 pg Normal 27.0 - 34.0 pg [facility] MCHC (RBC) [Mass/Vol] 34.3 g/dL Normal 31.4 - 36.0 gm/dL [facility] MCV (RBC) [Entitic vol] 94.2 fL Normal 80.0 - 100.0 fL [facility] Monocytes (Bld) [#/Vol] 0.4 E9/L Normal 0.2 - 1.0 E9/L [facility] Monocytes/100 WBC (Bld) 5.1 % Normal 4.0 - 14.0 % [facility] Neutrophils (Bld) [#/Vol] 5.4 E9/L Normal 2.0 - 7.5 E9/L [facility] Neutrophils/100 WBC (Bld) 65.4 % Normal 36.0 - 75.0 % [facility] Platelet mean volume (Bld) [Entitic vol] 8.5 fL Normal 6.4 - 10.8 fL [facility] Platelets (Bld) [#/Vol] 249.0 E9/L Normal 150. 0 - 500.0 E9/L [facility] RBC (Bld) [#/Vol] 4.3 E12/L Normal 4.3 - 5.9 E12/L [facility] WBC corrected for nucl RBC Auto (Bld) [#/Vol] 8.3 E9/L Normal 4.0 - 11.0 E9/L [facility] UA with Cult Rflxon 03-18-20 24 Bilirubin Ql (U) Negative Normal Negative [facility] Comment on above: Performed By: #### 4 [id number] #### [facility] [address] [place] [address] Clarity (U) Clear Normal Clear [facility] Comment on above: Performed By: #### 4 [id number] #### [facility] [address] [place] [address] Color (U) Yellow Normal Yellow [facility] Comment on above: Result Comment: Micr oscopic readings are only performed on those samples that meet specific criteria set forth by [facility]. Performed By: #### 4 [id number] #### [facility] [address] [place] [address] Epithelial cells.squamous Auto (Urine sed) [#/Area] 0-2 Invalid Interpretation Code [facility] Comment on above: Performed By: #### 4 [id number] #### [facility] [address] [place] [address] Glucose Ql (U) Negative Normal Negative [facility] Comment on above: Performed By: #### 4 [id number] #### [facility] [address] [place] [address] Hemoglobin Auto test strip (U) [Mass/Vol] 3+ mg/dL Abnormal Negative [facility] Comment on above: Performed By: #### 4 [id number] #### [facility] [address] [place] [address] Ketones Auto test strip Ql (U) Negative Normal Negative [facility] Comment on above: Performed By: #### 4 [id number] #### [facility] [address] [place] [address] Leukocyte esterase Auto test strip Ql (U) 25 Chaparrita/uL Normal Negative [facility] Comment on above: Performed By: #### 4 [id number] #### [facility] [address] [place] [address] Mucus Auto Ql (U) Trace Normal Negative [facility] Comment on above: Performed By: #### 4 [id number] #### [facility] [address] [place] [address] Nitrite Auto test strip Ql (U) Negative Normal Negative [facility] Comment on above: Performed By: #### 4 [id number] #### [facility] [address] [place] [address] pH (U) 7.5 [pH] Invalid Interpretation Code 5.0-9.0 [facility] Comment on above: Performed By: #### 4 [id number] #### [facility] [address] [place] [address] Protein Ql (U) Trace Abnormal Negative [facility] Comment on above: Performed By: #### 4 [id number] #### [facility] [address] [place] [address] RBC Ql (U) 31-75 Abnormal 0-3 [facility] Comment on above: Performed By: #### 4 [id number] #### [facility] [address] [place] [address] Specific gravity (U) [Rel density] 1.023 Invalid Interpretation Code 1.005-1.030 [facility] Comment on above: Performed By: #### 4 [id number] #### [facility] [address] [place] [address] Urobilinogen (U) [Mass/Vol] Negative Normal Negative [facility] Comment on above: Performed By: #### 4 [id number] #### [facility] [address] [place] [id number] WBC Auto (Urine sed) [#/Area] 0-5 Normal 0-5 [facility] Comment on above: Performed By: #### 4 [id number] #### [facility] [address] [place] [address] Type of Urine collection method Clean Catch Normal [facility] Comment on above: Performed By: #### 4 [id number] #### [facility] [facility] [address] [place] [address] URINALYSISOrdered By: SYSTEM SYSTEM on 03-18-2024 Bilirubin Ql (U) Negative Normal Negativemg/ dL [facility] UA Auto SS Clarity (U) Clear (03/18/24 8:17 AM) Normal Clear [facility] UA Auto SS Color (U) Yellow 1 (03/18/24 8:17 AM) Normal Yellow [facility] UA Auto SS Comment on above: Interpretive Data: M icroscopic readings are only performed on those samples that meet specific criteria set forth by [facility]. Epithelial cells.squamous Auto (Urine sed) [#/Area] 0-2 graded/HPF Invalid Interpretation Code [facility] UA Auto SS Glucose Ql (U) Negative Normal Negativemg/ dL [facility] UA Auto SS Hemoglobin Auto test strip (U) [Mass/Vol] 3+ mg/dL Invalid Interpretation Code Negativemg/ dL [facility] UA Auto SS Ketones Auto test strip Ql (U) Negative Normal Negativemg/ dL [facility] UA Auto SS Leukocyte esterase Auto test strip Ql (U) 25 Chaparrita/uL Chaparrita/uL Normal NegativeLeu /uL [facility] UA Auto SS Mucus Auto Ql (U) Trace graded/LPF Normal Negati vegra ded/LPF [facility] UA Auto SS Nitrite Auto test strip Ql (U) Negative Normal Negativemg/ dL [facility] UA Auto SS pH (U) 7.5 *NA* (03/18/24 8:17 AM) Invalid Interpretation Code 5.0 - 9.0 [facility] UA Auto SS Protein Ql (U) Trace mg/dL Invalid Interpretation Code Negativemg/ dL [facility] UA Auto SS RBC Ql (U) 31-75 graded/HPF Invalid Interpretation Code 0-3graded/H PF [facility] UA Auto SS Specific gravity (U) [Rel density] 1.023 *NA* (03/18/24 8:17 AM) Invalid Interpretation Code 1.005 - 1.030 [facility] UA Auto SS Urobilinogen (U) [Mass/Vol] Negative Normal Negativemg/ dL [facility] UA Auto SS WBC Auto (Urine sed) [#/Area] 0-5 graded/HPF Normal 0-5graded/H PF [facility] UA Auto SS URINALYSISOrdered By: Hector quiroga on 03-18-2024 UA Spec Desc Clean Catch (03/18/24 8:17 AM) Normal [facility] UA Auto SS 1st Trimesteron 03-18-2024 US 1st Trimester Exam Date/Time: 03/18/2024 11:34 EDT Reason for Exam: vaginal bleeding;Other (please specify) Report IMPRESSION: Single live intrauterine with estimated sonographic gestational age 6 weeks, 3 days. CLINICAL HISTORY: Vaginal bleeding. FINDINGS: Transabdominal images were obtained. Uterus contains a gestational sac surrounded by decidual reaction containing a single live intrauterine , with heart rate 125 bpm. [place]-rump length 3.22 mm. Mean sac diameter 1.74 cm. Estimated sonographic gestational age 6 weeks, 3 days. This compares with 6 weeks 3 days by dates. Sonographic estimated date of delivery November 08, 2024. The right ovary measurements and estimated volume are: Right Ovary Length: 1.8 cm Right Ovary Width: 2.4 cm Right Ovary Height: 3.1 cm Right Ovary Volume: 7.0 cm3 The left ovary measurements and estimated volume are: Left Ovary Length: 1.3 cm Left Ovary Width: 1.8 cm Left Ovary Height: 2.3 cm Left Ovary Volume: 2.9 cm3 Ordering Provider: Hector Correa FINAL REPORT Dictated: 03/18/2024 12:05 pm Luis Alfredo Bunch MD Signed (Electronic Signature): 03/18/2024 12:05 pm Signed by: Luis Alfredo Bunch MD Transcribed by: EDWIN Technologist: MARCOS Technical Comments Regular Patient History Hx Transabdominal Ultrasound Performed Transvaginal Ultrasound Performed Normal [facility] US Transvaginalon 03-18-2024 US Transvaginal Exam Date/Time: 03/18/2024 11:41 EDT Reason for Exam: Vaginal bleeding Report Please review ultrasound pelvis for ultrasound transvaginal report. Ordering Provider: Hector Correa FINAL REPORT Dictated: 03/18/2024 12:06 pm Luis Alfredo Bunch MD Signed (Electronic Signature): 03/18/2024 12:06 pm Signed by: Luis Alfredo Bunch MD Transcribed by: EDWIN Technologist: MARCOS Palma [facility] eGFRon 03-18-2024 eGFR 131 mL/min/1.73 m2 Normal >=59 [facility] Comment on above: Order Comment: Order added by Discern Expert. Performed By: #### 1 [id number] #### [facility] [address] [place] [address] Progesteroneon 02-24-2024 Progesterone 9.9 ng/mL Normal . [facility] Comment on above: Result Comment: Foll icular phase 0.1 - 0.9 Luteal phase 1.8 - 23.9 Ovulation phase 0.1 - 12.0 First trimester 11.0 - 44.3 Second trimester 25.4 - 83.3 Third trimester 58.7 - 214.0 Postmenopausal 0.0 - 0.1 Performed at: - [facility] [id number] Purchasing Internship: Alexis Ashton PhD, Phone: [phone] PERFORMED BY: [address] [address] PATHOLOGIST WASH OIL PUMP OPERATOR JORDI SMITH M.D. Performed By: #### P ANTHONY #### [facility] , Progesteroneon 01-24-2024 Progesterone 8.5 ng/mL Normal . [facility] Comment on above: Result Comment: Foll icular phase 0.1 - 0.9 Luteal phase 1.8 - 23.9 Ovulation phase 0.1 - 12.0 First trimester 11.0 - 44.3 Second trimester 25.4 - 83.3 Third trimester 58.7 - 214.0 Postmenopausal 0.0 - 0.1 Performed at: [address] [id number] Purchasing Internship: Alexis Ashton PhD, Phone: [phone] PERFORMED BY: [address] [place] [address] PATHOLOGIST WASH OIL PUMP OPERATOR JORDI SMITH M.D. Performed By: #### P ANTHONY #### [facility] , Serum or plasma progesterone measurement (mass/volume)Ordered By: Brain Way on 01-24-2024 Progesterone [Mass/Vol] 8.5 ng/mL . [facility] Comment on above: Follicular phase 0.1 - 0.9 Luteal phase 1.8 - 23.9 Ovulation phase 0.1 - 12.0 First trimester 11.0 - 44.3 Second trimester 25.4 - 83.3 Third trimester 58.7 - 214.0 Postmenopausal 0.0 - 0.1Performed at: [address] [id number] Director: Alexis Ashton PhD, Phone: [phone] Progesteroneon 12-27-2023 Progesterone 13.3 ng/mL Normal . [facility] Comment on above: Result Comment: Foll icular phase 0.1 - 0.9 Luteal phase 1.8 - 23.9 Ovulation phase 0.1 - 12.0 First trimester 11.0 - 44.3 Second trimester 25.4 - 83.3 Third trimester 58.7 - 214.0 Postmenopausal 0.0 - 0.1 Performed at: [address] [id number] Purchasing Internship: Alexis Ashton PhD, Phone: [phone] PERFORMED BY: [address] [address] PATHOLOGIST WASH OIL PUMP OPERATOR JORDI SMITH M.D. Performed By: #### P ANTHONY #### [facility] , Serum or plasma progesterone measurement (mass/volume)Ordered By: Brain Way on 12-27-2023 Progesterone [Mass/Vol] 13.3 ng/mL . [facility] Comment on above: Follicular phase 0.1 - 0.9 Luteal phase 1.8 - 23.9 Ovulation phase 0.1 - 12.0 First trimester 11.0 - 44.3 Second trimester 25.4 - 83.3 Third trimester 58.7 - 214.0 Postmenopausal 0.0 - 0.1Performed at: [facility] [address] [place] [id number] Director: Alexis Ashton PhD, Phone: [phone] Progesteroneon 11-30-2023 Progesterone 16.9 ng/mL Normal . [facility] Comment on above: Result Comment: Foll icular phase 0.1 - 0.9 Luteal phase 1.8 - 23.9 Ovulation phase 0.1 - 12.0 First trimester 11.0 - 44.3 Second trimester 25.4 - 83.3 Third trimester 58.7 - 214.0 Postmenopausal 0.0 - 0.1 Performed at: [facility] [place] [address] [place] [id number] Purchasing Internship: Alexis Ashton PhD, Phone: [phone] PERFORMED BY: [address] [place] [address] PATHOLOGIST WASH OIL PUMP OPERATOR JORDI SMITH M.D. Performed By: #### P ANTHONY #### [facility] , Serum or plasma progesterone measurement (mass/volume)Ordered By: Brain Way on 11-30-2023 Progesterone [Mass/Vol] 16.9 ng/mL . [facility] Comment on above: Follicular phase 0.1 - 0.9 Luteal phase 1.8 - 23.9 Ovulation phase 0.1 - 12.0 First trimester 11.0 - 44.3 Second trimester 25.4 - 83.3 Third trimester 58.7 - 214.0 Postmenopausal 0.0 - 0.1Performed at: [facility] [address] [place], [place] [id number] Director: Alexis Ashton PhD, Phone: [phone] Teresa 11-18-2023 CNOV Office Visit (ENDOMN ) MONATAWNYA LE ([id number]) 1995 F Date Time Provider Department 11/18/23 8:30 AM RUBY WHITTINGTON ENDOMN During your visit today, we recorded the following information about you: Pulse Blood pressure Weight Last Period 100/minute 132/92 110.7 kg 11/09/23 Ramona, Odalis 11/18/2023 7:58 AM Signed Thank you for choosing the [facility] Department of Endocrinology, Diabetes and Metabolism. Did you know that you need to call 48 hours in advance of your scheduled visit, if you are unable to make your appointment? The Endocrinology and Metabolism [place] thanks you for your commitment, because patients not showing to their appointment results in a lost opportunity for patients to receive [facility] health care at the [facility]. To Cancel an appointment, please choose one of the following: - Call the Appointment Call Center at [phone] - From [employer], Go to Appointments - Cancel Appts If cancelling, consider your need to reschedule to prevent further delays in your care. To Schedule an appointment, please choose one of the following: - Call the Appointment Call Center at [phone] - From [employer], Go to Appointments - Request an Appt Ruby Whittington MD 11/18/2023 8:41 AM Signed Answers submitted by the patient for this visit: Core Review of Systems (Submitted on 11/12/2023) Fever : No Night sweats: No Recent unintentional weight change: No Nasal Congestion: No Hearing Loss: No Vision Disturbance: No A cough: No Difficulty Breathing?: No Chest pain: No Irregular heartbeat: No Leg Swelling: No Nausea: No Diarrhea: No Black tarry stools: No Difficulty Urinating?: No Awaken at Night More Than Once to Urinate?: No Joint pain or stiffness: No Muscle aches: No Leg or Foot Discomfort at Night?: No A rash: No Dizziness: No Headaches: No Memory Loss: No Seizures: No Tawnya Herring is a 28 year old female who is presenting today November 18, 2023 for a Thyroid problem. 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 Previous laboratory results: TSH (mIU/L) Date Value 07/14/2022 2.480 Free T4 (ng/dL) Date Value 07/14/2022 1.3 Subjective: Weight: remained stable; Energy: improving; Moods: good Sleep: Terminal insomnia; Temp. Intolerance: Heat Intolerance Diaphoresis: Not significant; Memory: Fair Thyroid Pain: no; Mass Effect: difficulty swallowing improved on PPI CV: No history of chest pain, palpitation, orthopnea, cyanosis, pedal edema; Resp: No cough, hemoptysis, asthma, recent chest infection, wheezing; GI: No blood in stool, pain with BM, tarry stool, persistent diarrhea or constipation; REPRODUCTIVE: irregular cycle infertility- Polycystic ovaries Eyes: No; Skin: Negative M/S: negative ; Neuro: frequent headaches Other: Has had renal stone but none recently. Physical Exam BP 132/92 Pulse 100 Wt 110.7 kg (244 lb) LMP 11/09/2023 BMI 38.07 kg/m? APPEARANCE: Well appearing, alert, in no acute distress, Obese EYES ZAINAB, extra occular movements normal NECK Supple, no adenopathy; thyroid symmetric, mildly enlarged. 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 Had lab in August that showed she was adequately replaced on 75 mcg daily. 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 She had no real difficulty getting twice previously but recently menses have become irregular and U/S showed polycystic ovaries. She has had renal stones in the past but none recently. Recommendations: Continue levothyroxine 75 mcg daily. RTN 1 year. Ruby Whittington MD Endocrinology Staff Allergies As of Date: 11/18/2023 (No Known Allergies) Date Reviewed: 11/18/2023 Reviewed by: Odalis Greene - Fully Assessed Primary Visit Diagnosis:Hypothyroid ism due to Tiffani's thyroiditis [E03.8, E06.3] Other Visit Diagnoses:Class 2 obesity [E66.9] Irregular menstruation, unspecified [N92.6] Female infertility [N97.9] Calculus of kidney [N20.0] Order(s):levothyroxin e (SYNTHROID) 75 mcg tabletTake 1 tablet by mouth once daily.Disp: 90 tabletRfl: 3 Prescriptions as of 11/18/2023 - cyanocobalamin/folic acid (VITAMIN X03-EINGX ACID) 1,000-400 mcg lozg Take by mouth (more content not included)... Normal [facility] Progesteroneon 11-01-2023 Progesterone 7.1 ng/mL Normal . [facility] Comment on above: Result Comment: Foll icular phase 0.1 - 0.9 Luteal phase 1.8 - 23.9 Ovulation phase 0.1 - 12.0 First trimester 11.0 - 44.3 Second trimester 25.4 - 83.3 Third trimester 58.7 - 214.0 Postmenopausal 0.0 - 0.1 Performed at: - [facility] [address] [id number] Purchasing Internship: Alexis Ashton PhD, Phone: [phone] PERFORMED BY: [address] [place] [address] PATHOLOGIST WASH OIL PUMP OPERATOR JORDI SMITH M.D. Performed By: #### P ANTHONY #### [facility] , Serum or plasma progesterone measurement (mass/volume)Ordered By: Brain Way on 11-01-2023 Progesterone [Mass/Vol] 7.1 ng/mL . [facility] Comment on above: Follicular phase 0.1 - 0.9 Luteal phase 1.8 - 23.9 Ovulation phase 0.1 - 12.0 First trimester 11.0 - 44.3 Second trimester 25.4 - 83.3 Third trimester 58.7 - 214.0 Postmenopausal 0.0 - 0.1Performed at: [facility] [place], [place] [id number] Director: Alexis Ashton PhD, Phone: [phone] Progesteroneon 10-01-2023 Progesterone 0.9 ng/mL Normal . [facility] Comment on above: Result Comment: Foll icular phase 0.1 - 0.9 Luteal phase 1.8 - 23.9 Ovulation phase 0.1 - 12.0 First trimester 11.0 - 44.3 Second trimester 25.4 - 83.3 Third trimester 58.7 - 214.0 Postmenopausal 0.0 - 0.1 Performed at: [facility] [place] [id number] Purchasing Internship: Alexis Ashton PhD, Phone: [phone] PERFORMED BY: [place] [address] [address] [place] [id number] PATHOLOGIST WASH OIL PUMP OPERATOR JORDI SMITH M.D. Performed By: #### P ANTHONY #### [facility] , Serum or plasma progesterone measurement (mass/volume)Ordered By: Brain Way on 10-01-2023 Progesterone [Mass/Vol] 0.9 ng/mL . [facility] Comment on above: Follicular phase 0.1 - 0.9 Luteal phase 1.8 - 23.9 Ovulation phase 0.1 - 12.0 First trimester 11.0 - 44.3 Second trimester 25.4 - 83.3 Third trimester 58.7 - 214.0 Postmenopausal 0.0 - 0.1Performed at: [facility] [place], [place] [id number] Director: Alexis Ashton PhD, Phone: [phone] Ambulatory Visit Summaryon 0 09-29-2023 Ambulatory Visit Summary TAWNYA HERRING :1995 Visit Date:09/29/2023 Ambulatory Visit Instructions Your Diagnosis Sinusitis BMI 38.0-38.9,adult Your Care Team Attending Physician - Tyrone Rock PA-C Primary Care Physician - DARWIN JONES CNP This Is Your Medications List amoxicillin-clavulana te (Augmentin 875 mg oral tablet) methylPREDNISolone (Medrol Dosepack 4 mg Tab) Contact prescribing physician if questions or concerns citalopram (CeleXA 20 mg Tab) citalopram (citalopram 20 mg Tab) pyridoxine (Vitamin B6 100 mg Tab) Procedures Performed delivery. Discharge Vitals Temperature (Oral) 36.8 ?C Heart Rate (Peripheral) 95 Blood Pressure 122/78 Height 170.2 cm Height 67 in Weight 112 kg Weight 246.4 lb BMI 38.66 What to do next You Need to Schedule the Following Appointments Follow Up with DARWIN JONES CNP When: Where: [address] [place] [address] [place] [address]- Medications What How Much When Why Instructions New amoxicillin-clavulana te (Augmentin 875 mg oral tablet) 1 Tablets By Mouth Every 12 hours Sinusitis BMI 38.0-38.9,adult Duration: 10 Days Pickup at [facility] New methylPREDNISolone (Medrol Dosepack 4 mg Tab) 1 Packets By Mouth As Directed Sinusitis BMI 38.0-38.9,adult Duration: 6 Days as directed on package labeling Pickup at [facility] Unchanged citalopram (CeleXA 20 mg Tab) 1 Tablets By Mouth Every day Contact prescribing physician if questions or concerns Unchanged citalopram (citalopram 20 mg Tab) Contact prescribing physician if questions or concerns Unchanged pyridoxine (Vitamin B6 100 mg Tab) By Mouth Every day Contact prescribing physician if questions or concerns Pharmacy Information [facility]: [address] [place] [id number] [phone] Allergies No Known Allergies No Known Medication Allergies Problems Ongoing - Any problem that you are currently receiving treatment for. Anxiety Kidney stones Obesity Weight gain Patient Survey You may receive a survey via text or e-mail asking about your office visit. Please share your experience with us by completing your survey. We appreciate your feedback and thank you for choosing us for your care. Normal [facility] Family Medicine Office/Clini c Noteon 09-29-2023 Family Medicine Office/Clinic Note Chief Complaint Current pt headache, cough, sinus congestion, ear pain HPI Staff 28 yo female here today with sinus drainage, ear pain Symptoms began 1 wk ago Complains of headache, sinus congestion, right ear pain Pt has been taking tylenol, motrin History of Present Illness I have reviewed and verified the staff HPI to be accurate for this encounter. Portions of this record have been created with voice recognition software. Occasional wrong-word or ?[id number]? substitutions may have occurred due to the inherent limitations of voice recognition software. 28 yo female presents today with chief complaint of headache, cough, sinus congestion and ear pain. Patient states symptoms started x 1 week ago. States that she is a 4-year-old and a 2-year-old in which they have both been sick with similar viral-like symptoms. Patient states cough has resolved. But she still has sinus congestion now with right-sided ear pain and headache which she cannot seem to get rid of. States has been taking Tylenol and ibuprofen with little relief of headache states that this happened to her before when she had fluid behind the right ear in which she was treated with a steroid with improvement. She does not use any [id number] Flonase and has not tried any other modifying factors aside from Tylenol and Motrin. She denies any fever or chills with her symptoms. She has no other concerns at this time. No known drug allergies. Review of Systems PHQ Score Initial Depression Screen Score: 0 SCORE ROS negative unless otherwise stated in HPI. Physical Exam Vitals & Measurements T: 36.8 ?C(Oral) HR: 95(Peripheral) BP: 122/78 SpO2: 97% HT: 67 in HT: 170.2 cm WT: 112 kg WT: 246.4 lb BMI: 38.66 General: Pleasant obese female, no acute distress Eyes: Bilateral conjunctiva within normal limits no injection. Ears: Bilateral TMs with clear fluid and slight bulging. No erythema or concern for acute otitis media. Bilateral external auditory canals are within normal limits no erythema or edema. Nose: moderate nasal mucosa inflammation and edema patient has erythematous swollen boggy nasal turbinates bilaterally. No active nasal drainage deformity or lesion. Pressure with palpation over maxillary sinuses bilaterally. Mouth: Moist mucous membranes. No acute tonsillar erythema edema or exudate. Uvula is midline. No signs of peritonsillar abscess. No trismus or drooling. Neck: no adenopathy Lungs: Lung sounds are clear bilaterally. No wheezing rhonchi or crackles on exam. Cardio: S1, S2, regular rhythm. No murmurs gallops or rubs. Abdomen: not assessed Musculoskeletal: not assessed Extremity: Patient walked back into convenient care on her own without gait abnormality. Walked back with her 2-year-old son. Neurologic: not assessed Skin: No rashes, ulcerations, or suspicious lesions Mental Status: Alert and oriented x3. Normal mood and affect Assessment/Plan I spoke with patient in regards to treatment for sinusitis given duration of symptoms however like her to wait 2 to 3 days more prior to starting antibiotics as this may be viral in nature. Discussed that she does have acute right-sided ear effusion and states she has not used Flonase in the past and has tolerated Medrol Dosepak in the past in regards to right ear fullness and discomfort. Will treat patient with Medrol Dosepak for right-sided ear effusion in addition to treating sinusitis. If patient does not have improvement of symptoms in 2 to 3 days she may begin taking antibiotic Augmentin twice daily x 10 days duration which she is understanding and agreement discussed to eat something while taking the antibiotic as it may cause stomach upset. She will otherwise follow closely with primary care provider or return if needed. Patient agrees and understands plan. 1. Sinusitis (J32.9: Chronic sinusitis, unspecified) Discussed symptoms likely remain viral in nature at this time. May use medrol dose jose, steroid for symptomatic treatment, PRN tylenol/ibuprofen for pain. If improving over next 2-3 days, is consistent with viral illness and antibiotics not needed. If no improvement over next 2-3 days, fill Rx for Augmentin bid x 10 days and finish entire course. Fu with PCP if not improving with 5-7 days of antibiotic or significantly worsening. Patient verbalized understanding of treatment plan. Ordered: amoxicillin-clavulana te, = 1 tab(s), Oral, q12hr, X 10 day(s), # 20 tab(s), Refills(s) 0, Pharmacy: [facility], 170.2, cm, 09/29/23 10:44:00 EST, Height/Length Dosing, 112, kg, 09/29/23 10:44:00 EST, Weight Dosing methylPREDNISolone, = 1 packet(s), Oral, As Directed, as directed on package labeling, X 6 day(s), # 21 tab(s), Refills(s) 0, Pharmacy: [facility], 170.2, cm, 09/29/23 10:44:00 EST, Height/Length Dosing, 112, kg, 09/29/23 10:44:00 EST, Weight Dosing 2. BMI 38.0-38.9,adult (Z68.38: Body mass index [BMI] 38.0-38.9, adult) The standard range for ages 18 and olde (more content not included)... Normal [facility] Comment on above: Result Comment: Elec tronically Signed By: Pranav BECKHAM, Tyrone Mujica\.br\Date and Time Signed: 09/29/23 11:05 EST Patient Educationon 09-29-19 Patient Education Infectious Disease Sinus Infection, Adult A sinus infection, also called sinusitis, is inflammation of your sinuses. Sinuses are hollow spaces in the bones around your face. Your sinuses are located: ? Around your eyes. ? In the middle of your forehead. ? Behind your nose. ? In your cheekbones. Mucus normally drains out of your sinuses. When your nasal tissues become inflamed or swollen, mucus can become trapped or blocked. This allows bacteria, viruses, and fungi to grow, which leads to infection. Most infections of the sinuses are caused by a virus. A sinus infection can develop quickly. It can last for up to 4 weeks (acute) or for more than 12 weeks (chronic). A sinus infection often develops after a cold. What are the causes? This condition is caused by anything that creates swelling in the sinuses or stops mucus from draining. This includes: ? Allergies. ? Asthma. ? Infection from bacteria or viruses. ? Deformities or blockages in your nose or sinuses. ? Abnormal growths in the nose (nasal polyps). ? Pollutants, such as chemicals or irritants in the air. ? Infection from fungi. This is rare. What increases the risk? You are more likely to develop this condition if you: ? Have a weak body defense system (immune system). ? Do a lot of swimming or diving. ? Overuse nasal sprays. ? Smoke. What are the signs or symptoms? The main symptoms of this condition are pain and a feeling of pressure around the affected sinuses. Other symptoms include: ? Stuffy nose or congestion that makes it difficult to breathe through your nose. ? Thick yellow or greenish drainage from your nose. ? Tenderness, swelling, and warmth over the affected sinuses. ? A cough that may get worse at night. ? Decreased sense of smell and taste. ? Extra mucus that collects in the throat or the back of the nose (postnasal drip) causing a sore throat or bad breath. ? Tiredness (fatigue). ? Fever. How is this diagnosed? This condition is diagnosed based on: ? Your symptoms. ? Your medical history. ? A physical exam. ? Tests to find out if your condition is acute or chronic. This may include: ? Checking your nose for nasal polyps. ? Viewing your sinuses using a device that has a light (endoscope). ? Testing for allergies or bacteria. ? Imaging tests, such as an MRI or CT scan. In rare cases, a bone biopsy may be done to rule out more serious types of fungal sinus disease. How is this treated? Treatment for a sinus infection depends on the cause and whether your condition is chronic or acute. ? If caused by a virus, your symptoms should go away on their own within 10 days. You may be given medicines to relieve symptoms. They include: ? Medicines that shrink swollen nasal passages (decongestants). ? A spray that eases inflammation of the nostrils (topical intranasal corticosteroids). ? Rinses that help get rid of thick mucus in your nose (nasal saline washes). ? Medicines that treat allergies (antihistamines). ? Nucg-dbm-exumumy pain relievers. ? If caused by bacteria, your health care provider may recommend waiting to see if your symptoms improve. Most bacterial infections will get better without antibiotic medicine. You may be given antibiotics if you have: ? A severe infection. ? A weak immune system. ? If caused by narrow nasal passages or nasal polyps, surgery may be needed. Follow these instructions at home: Medicines ? Take, use, or apply vale-dyd-btvoafg and prescription medicines only as told by your health care provider. These may include nasal sprays. ? If you were prescribed an antibiotic medicine, take it as told by your health care provider. Do not stop taking the antibiotic even if you start to feel better. Hydrate and humidify ? Drink enough fluid to keep your urine pale yellow. Staying hydrated will help to thin your mucus. ? Use a cool mist humidifier to keep the humidity level in your home above 50%. ? Inhale steam for 10?15 minutes, 3?4 times a day, or as told by your health care provider. You can do this in the bathroom while a hot shower is running. ? Limit your exposure to cool or dry air. Rest ? Rest as much as possible. ? Sleep with your head raised (elevated). ? Make sure you get enough sleep each night. General instructions ? Apply a warm, moist washcloth to your face 3?4 times a day or as told by your health care provider. This will help with discomfort. ? Use nasal saline washes as often as told by your health care provider. ? Wash your hands often with soap and water to reduce your exposure to germs. If soap and water are not available, use hand reactor kettle operator. ? Do not smoke. Avoid being around people who are smoking (secondhand smoke). ? Keep all follow-up visits. This is important. Contact a health care provider if: ? You have a fever. ? Your symptoms get (more content not included)... Normal [facility] Noe 07-16-2023 [facility] Telephone ([facility] TAWNYA HERRING ([id number]) 1995 F Date Time Provider Department 07/16/23 RUBY WHITTINGTONAlayna During your visit today, we recorded the following information about you: Patricia, Kenan 07/16/2023 9:40 AM Signed LVM to let patient know their appt has been rescheduled with Dr. Whittington. Allergies As of Date: 07/16/2023 (No Known Allergies) Date Reviewed: 06/08/2023 Reviewed by: Niharika Thompson MA - Fully Assessed Reason for Visit: Appointment [186] Prescriptions as of 07/16/2023 - omeprazole (PRILOSEC) 20 mg capsule Take 20 mg by mouth once daily. - OZEMPIC 1 mg/dose (4 mg/3 mL) pen Administer 1mg subcutaneously once weekly - levothyroxine (SYNTHROID) 75 mcg tablet Take 1 tablet by mouth once daily. - citalopram (CELEXA) 20 mg tablet Take 20 mg by mouth daily at bedtime. - Drospirenone-Ethinyl Estradiol 3-0.03 mg per tablet Take 1 tablet by mouth once daily. 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 CNOVon 06-08-2023 CNOV Office Visit (OTNADIRN ) TAWNYA HERRING ([id number]) 1995 F Date Time Provider Department 06/08/23 1:50 PM FRANCY GAN During your visit today, we recorded the following information about you: Temperature 97.2 degrees Francy Gan PA-C 06/08/2023 2:16 PM Signed Continue the omeprazole for another 1.5 months Francy Gan PA-C 06/08/2023 2:53 PM Signed CC: Tawnya Herring is 27 year old female who is self referred for dysphagia Assessment and Plan: (R13.10) Dysphagia, unspecified type (primary encounter diagnosis) (K21.9) LPRD (laryngopharyngeal reflux disease) ~flexible laryngoscope on Orpheus reveals erythema/edema of arytenoids and interarytenoid mucosa. Vocal folds move well ~continue omeprazole for another 2 months ~ordered Modified Barium Swallow Study (will need to verify she's not first before she schedules) ~I will be in touch with results via [facility] HPI: Tawnya is a 27 year old who reports troubles swallowing. 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 Her most recent TSH in January is allegedly WNL. For the past 2-3 months, she notes when she lies on her back, she feels like she can't breathe and it forces her to lie on her sides. She also has trouble swallowing solid foods. Occurs with any food at least 2-3 times a day. Occasionally will regurgitate the undigested food. She will drink a lot of water to force it down. Denies choking or aspiration. Denies inability to breathe. Feels like it gets stuck at base of throat. Denies fevers, unexplained weight loss, odynophagia, hoarseness, or hemoptysis. PCP initiated her on omeprazole 40 mg 6 weeks ago - she takes with food. ALLERGIES No Known Allergies Current Outpatient Medications Medication Sig omeprazole (PRILOSEC) 20 mg capsule Take 20 mg by mouth once daily. OZEMPIC 1 mg/dose (4 mg/3 mL) pen Administer 1mg subcutaneously once weekly levothyroxine (SYNTHROID) 75 mcg tablet Take 1 tablet by mouth once daily. citalopram (CELEXA) 20 mg tablet Take 20 mg by mouth daily at bedtime. Drospirenone-Ethinyl Estradiol 3-0.03 mg per tablet Take 1 tablet by mouth once daily. No current facility-administered medications for this visit. PAST MEDICAL HISTORY Diagnosis Date Hypothyroidism PAST SURGICAL HISTORY Procedure Laterality Date SNGL N/A 06/2019 and jul Social History: Social History Tobacco Use Smoking status: Never Passive exposure: Never Smokeless tobacco: Never Substance Use Topics Alcohol use: Never Drug use: Never FAMILY HISTORY Problem Relation Age of Onset Thyroid Maternal Grandmother Review Of Systems GENERAL: No weight loss, malaise or fevers. HEENT: Negative for frequent or significant headaches, No changes in hearing or vision, No nasal bleeding, congestion or rhinorrhea, No sore throat or change in voice, Mouth AND Throat Positive for problem with swallowing NECK: Negative for lumps, goiter, pain and significant neck swelling I have confirmed and edited as necessary the ROS obtained by others. Francy Gan PA-C PHYSICAL EXAM: Temp 36.2 ?C (97.2 ?F) LMP 07/05/2022 No weight on file for this encounter. General appearance: Well appearing, alert, in no acute distress, well-hydrated, well nourished. Cranial Nerves: III-XII: grossly intact Skin: Skin color, texture, turgor normal, no suspicious rashes or lesions Head: normocephalic, no masses, lesions, tenderness or abnormalities Ears: Bilateral external ear(s) normal, external auditory canal(s) clear, tympanic membrane(s) normal. Nose/Sinuses: Nares normal. Mucosa and the visible turbinates are normal on anterior rhinoscopy. No purulence or polyps Oral Cavity / Oropharynx: Lips, oral mucosa, hard and soft palates, tongue and posterior pharngeal wall are without lesions Neck: The neck appears symmetric without scars. On palpation, there are no masses or lymphadenopathy. The thyroid is not palpable and was free of masses. No salivary gland masses or hypertrophy is noted. Neuro: Gait normal. Mental status revealed patient to be alert and oriented. Mood is appropriate Procedure Flexible laryngoscopy was performed because of the following indication: dysphagia: After spraying the nose with 4% xylocaine and 0.5% oxymetazoline, the flexible scope was placed in a transnasal fashion. The nasopharynx, oropharynx, hypopharynx including the pyriform sinuses were normal. The base of tongue showed no gross lesions. The larynx itself showed erythema of the arytnoids and interarytnoid mucosa. The vocal cords moved well bilaterally. Francy Gan PA-C Medical Decision Making: Problems: Moderate: New problem with uncertain prognosis Data: Unique test(s) ordered: 1 Risk: Low: Low risk from testing/treatment Medical Decision Making Level: 3 - Low Allergies (more content not included)... Normal [facility] thyroidon 05-06-2023 [facility] [address] [place] [address] Ultrasound Report Signed Patient: Tawnya Herring MR#: [id number] 28 : 1995 Acct:[id number] Age/Sex: 27 / F ADM Date: 05/06/23 Loc: Room: Type: [facility] Attending Dr: Darwin Jones APRN Ordering Provider: Darwin Jones APRN Date of Service: 05/06/23 US/US thyroid: Pharyngoesophageal dysphagia Copies to: Darwin Jones APRN THYROID ULTRASOUND COMPARISON: 02/13/2022 CLINICAL DATA: Neck fullness. Dysphagia. The right thyroid lobe measures 4.0 x 1.4 x 1.4 cm. The left lobe measures 3.9 x 1.0 x 1.6 cm. The isthmus measures 6 - 7 mm. There is mild heterogeneity. No nodules were identified within the thyroid lobes. Posterior to the left thyroid lobe inferiorly there is a hypoechoic area measuring 14 x 4 x 8 mm. This was also seen at the time the comparison. It is uncertain if this is parathyroid in origin. US/US thyroid IMPRESSION: NO DEVELOPING THYROID NODULARITY. SIMILAR HYPOECHOIC NODULE POSTERIOR TO THE LEFT THYROID LOBE. Impression dictated by: Aleisha Tapia M.D.05/06/2023 4:17 PM Dictation Location: [place] [address] Tech: [facility] Transcribed By: AGUILAR 05/06/23 1617 Dictated By: Aleisha Tapia MD 05/06/23 1552 Signed By: 05/06/23 1617 Normal [facility] Alanine aminotransferase [En zymatic activity/volume] in Serum or PlasmaOrdered By: Addi Ortega on 04-08-2023 ALT [Catalytic activity/Vol] 28 U/L Normal [facility] Comment on above: Performed By: #### P ILLAR CBC, PILLAR CMP, PILLAR LIPID, PILLAR TSH #### [place] [address] [place] #### NICOTINE QUAL #### [facility] , Albumin [Mass/volume] in Ser um or Plasma by Bromocresol green (BCG) dye binding methoOrdered By: Addi Ortega on 04-08-2023 Albumin BCG dye [Mass/Vol] 4.8 g/dL 3.5-5.7 [facility] Alkaline phosphatase [Enzyma tic activity/volume] in Serum or PlasmaOrdered By: Addi Shannon on 04-08-2023 ALP [Catalytic activity/Vol] 61 U/L Normal 34-104 [facility] Comment on above: Performed By: #### P ILLAR CBC, PILLAR CMP, PILLAR LIPID, PILLAR TSH #### [place] [address] [place] #### NICOTINE QUAL #### [facility] , Aspartate aminotransferase [ Enzymatic activity/volume] in Serum or PlasmaOrdered By: Addi Ortega on 04-08-2023 AST [Catalytic activity/Vol] 13 U/L Normal 13-39 [facility] Comment on above: Performed By: #### P ILLAR CBC, PILLAR CMP, PILLAR LIPID, PILLAR TSH #### [place] [address] [place] #### NICOTINE QUAL #### [facility] , Automated basophil %Ordered By: Addi Ortega on 04-08-2023 Basophils/100 WBC (Bld) 0.4 % Normal . [facility] Comment on above: Performed By: #### P ILLAR CBC, PILLAR CMP, PILLAR LIPID, PILLAR TSH #### [facility] [address] [place] [address] [place] #### NICOTINE QUAL #### [facility] , Automated basophil countOrde red By: Addimanuelito Ortega on 04-08-2023 Basophils (Bld) [#/Vol] 0.0 10*3/uL Normal 0.0-0.2 [facility] Comment on above: Result Comment: PERF ORMED BY: [place] [address] PATHOLOGIST WASH OIL PUMP OPERATOR JORDI SMITH M.D. Performed By: #### P ILLAR CBC, PILLAR CMP, PILLAR LIPID, PILLAR TSH #### [facility] [address] [place] [address] [place] #### NICOTINE QUAL #### [facility] , Automated blood monocyte cou ntOrdered By: Addi Ortega on 04-08-2023 Monocytes (Bld) [#/Vol] 0.4 10*3/uL Normal 0.0-0.8 [facility] Comment on above: Performed By: #### P ILLAR CBC, PILLAR CMP, PILLAR LIPID, PILLAR TSH #### [place] [address] [place] #### NICOTINE QUAL #### [facility] , Automated eosinophil %Ordere d By: Addi Dobsonkevon on 04-08-2023 Eosinophils/100 WBC (Bld) 1.3 % Normal . [facility] Comment on above: Performed By: #### P ILLAR CBC, PILLAR CMP, PILLAR LIPID, PILLAR TSH #### [place] [address] [place] #### NICOTINE QUAL #### [facility] , Automated eosinophil countOr dered By: Addi Ortega on 04-08-2023 Eosinophils (Bld) [#/Vol] 0.1 10*3/uL Normal 0.0-0.45 [facility] Comment on above: Performed By: #### P ILLAR CBC, PILLAR CMP, PILLAR LIPID, PILLAR TSH #### [place] [address] [place] #### NICOTINE QUAL #### [facility] , Automated monocyte %Ordered By: Addi Ortega on 04-08-2023 Monocytes/100 WBC (Bld) 5.8 % Normal . [facility] Comment on above: Performed By: #### P ILLAR CBC, PILLAR CMP, PILLAR LIPID, PILLAR TSH #### [place] [address] [place] #### NICOTINE QUAL #### [facility] , Automated neutrophil %Ordere d By: Addi Shannon on 04-08-2023 Neutrophils/100 WBC (Bld) 53.9 % Normal . [facility] Comment on above: Performed By: #### P ILLAR CBC, PILLAR CMP, PILLAR LIPID, PILLAR TSH #### [place] [address] [place] #### NICOTINE QUAL #### [facility] , Bilirubin.total [Mass/volume ] in Serum or PlasmaOrdered By: Addi Ortega on 04-08-2023 Bilirubin [Mass/Vol] 0.4 mg/dL Normal 0.3-1.0 [facility] Comment on above: Performed By: #### P ILLAR CBC, PILLAR CMP, PILLAR LIPID, PILLAR TSH #### [place] [address] [place] #### NICOTINE QUAL #### [facility] , Calcium [Mass/volume] in Ser um or PlasmaOrdered By: Addi Ortega on 04-08-2023 Calcium [Mass/Vol] 9.5 mg/dL Normal 8.6-10.3 [facility] Comment on above: Performed By: #### P ILLAR CBC, PILLAR CMP, PILLAR LIPID, PILLAR TSH #### [place] [address] [place] #### NICOTINE QUAL #### [facility] , Carbon dioxide, total [Moles /volume] in Serum or PlasmaOrdered By: Addi Ortega on 04-08-2023 CO2 [Moles/Vol] 25.4 mmol/L Normal 21.0-31.0 [facility] Comment on above: Performed By: #### P ILLAR CBC, PILLAR CMP, PILLAR LIPID, PILLAR TSH #### [place] [address] [place] #### NICOTINE QUAL #### [facility] , Chloride [Moles/volume] in S ghada or PlasmaOrdered By: Addi Ortega on 04-08-2023 Chloride [Moles/Vol] 106 mmol/L Normal 98-107 [facility] Comment on above: Performed By: #### P ILLAR CBC, PILLAR CMP, PILLAR LIPID, PILLAR TSH #### [facility] [address] [place] [address] [place] #### NICOTINE QUAL #### [facility] , Cholesterol [Mass/volume] in Serum or PlasmaOrdered By: Addi Ortega on 04-08-2023 Cholesterol [Mass/Vol] 162 mg/dL Normal 140-200 [facility] Comment on above: Chol less than 200 m g/dl low riskChol 201-239 mg/dl borderline riskChol 240 mg/dl and greater high risk Result Comment: Chol less than 200 mg/dl low risk Chol 201-239 mg/dl borderline risk Chol 240 mg/dl and greater high risk Performed By: #### P ILLAR CBC, PILLAR CMP, PILLAR LIPID, PILLAR TSH #### [facility] [address] [place] [address] [place] #### NICOTINE QUAL #### [facility] , Cholesterol in LDL Calc [Mas s/Vol]Ordered By: Addi Ortega on 04-08-2023 Cholesterol in LDL [Mass/Vol] 99 mg/dL 0-100 [facility] Comment on above: LDL ATP III CLASSIFI CATIONLDL less than 100 mg/dL OptimalLDL 100-129 mg/dL Near or above optimalLDL 130-159 mg/dL Borderline highLDL 160-189 mg/dL HighLDL greater than 189 mg/dL Very high Cholesterol in VLDL Calc [Ma ss/Vol]Ordered By: Addi Ortega on 04-08-2023 Cholesterol in VLDL [Mass/Vol] 18 mg/dL [facility] Creatinine [Mass/volume] in Serum or PlasmaOrdered By: Addi Ortega on 04-08-2023 Creatinine [Mass/Vol] 0.59 mg/dL Low 0.60-1.20 [facility] Comment on above: Performed By: #### P ILLAR CBC, PILLAR CMP, PILLAR LIPID, PILLAR TSH #### [facility] [address] [place] [address] [place] #### NICOTINE QUAL #### [facility] , Employee Comp Metabolic Pane samy 04-08-2023 Albumin [Mass/Vol] 4.8 g/dL Normal 3.5-5.7 [facility] Comment on above: Performed By: #### P ILLAR CBC, PILLAR CMP, PILLAR LIPID, PILLAR TSH #### [facility] [address] [place] [address] [place] #### NICOTINE QUAL #### [facility] , GFR/1.73 sq M.predicted MDRD (S/P/Bld) [Vol rate/Area] mL/min/{1.73_m2} Normal [facility] Comment on above: Performed By: #### P ILLAR CBC, PILLAR CMP, PILLAR LIPID, PILLAR TSH #### [address] #### NICOTINE QUAL #### [facility] , Employee Complete Blood Coun ton 04-08-2023 Mean Corpuscular HGB Conc 34.5 g/dL Normal 32.0-35.0 [facility] Comment on above: Performed By: #### P ILLAR CBC, PILLAR CMP, PILLAR LIPID, PILLAR TSH #### [address] #### NICOTINE QUAL #### [facility] , NRBC% 0.0 /100{WBC} Normal 0-0.5 [facility] Comment on above: Performed By: #### P ILLAR CBC, PILLAR CMP, PILLAR LIPID, PILLAR TSH #### [facility] [address] [place] [address] [place] #### NICOTINE QUAL #### [facility] , Employee Lipid Profileon LDL Cholesterol,Calculated 99 mg/dL Normal 0-100 The Counts include [address] beds at the [facility] Comment on above: Result Comment: LDL ATP III CLASSIFICATION LDL less than 100 mg/dL Optimal LDL 100-129 mg/dL Near or above optimal LDL 130-159 mg/dL Borderline high LDL 160-189 mg/dL High LDL greater than 189 mg/dL Very high Performed By: #### P ILLAR CBC, PILLAR CMP, PILLAR LIPID, PILLAR TSH #### [address] #### NICOTINE QUAL #### [facility] , Triglyceride w/Reflex 92 mg/dL Normal 0-149 [facility] Comment on above: Result Comment: TRIG ATP III CLASSIFICATION TRIG less than 150 mg/dL Normal TRIG 150-199 mg/dL Borderline high TRIG 200-500 mg/dL High TRIG greater than 500 mg/dL Very high Standard traceable to the Center for Disease Conrtrol and Prevention (CDC) test method. Performed By: #### P ILLAR CBC, PILLAR CMP, PILLAR LIPID, PILLAR TSH #### [address] #### NICOTINE QUAL #### [facility] , VLDL CHOLESTEROL 18 mg/dL Normal [facility] Comment on above: Performed By: #### P ILLAR CBC, PILLAR CMP, PILLAR LIPID, PILLAR TSH #### [address] #### NICOTINE QUAL #### [facility] , Employee Thyroid Stim Hormon gokul 04-08-2023 Employee Thyroid Stim Hormone 4.55 u[iU]/mL Normal 0.45-5.33 [facility] Comment on above: Result Comment: PERF ORMED BY: [place] [address] PATHOLOGIST WASH OIL PUMP OPERATOR JORDI SMITH M.D. Performed By: #### P ANTHONY #### [facility] , Erythrocyte distribution wid th [Ratio] by Automated countOrdered By: Addi Ortega on 04-08-2023 Erythrocyte distribution width (RBC) [Ratio] 12.6 % Normal 11.9-15.3 [facility] Comment on above: Performed By: #### P ILLAR CBC, PILLAR CMP, PILLAR LIPID, PILLAR TSH #### [place] [address] [place] #### NICOTINE QUAL #### [facility] , Erythrocytes [#/volume] in B lood by Automated countOrdered By: Addi Ortega on 04-08-2023 RBC (Bld) [#/Vol] 4.29 10*6/uL Normal 3.60-5.00 [facility] Comment on above: Performed By: #### P ILLAR CBC, PILLAR CMP, PILLAR LIPID, PILLAR TSH #### [place] [address] [place] #### NICOTINE QUAL #### [facility] , Glucose [Mass/volume] in Ser um or PlasmaOrdered By: Addi Ortega on 04-08-2023 Glucose [Mass/Vol] 83 mg/dL Normal 70-100 [facility] Comment on above: Performed By: #### P ILLAR CBC, PILLAR CMP, PILLAR LIPID, PILLAR TSH #### [place] [address] [place] #### NICOTINE QUAL #### [facility] , Hematocrit [Volume Fraction] of Blood by Automated countOrdered By: Addi Ortega on 04-08-2023 Hematocrit (Bld) [Volume fraction] 39.3 % Normal 34.0-46.4 [facility] Comment on above: Performed By: #### P ILLAR CBC, PILLAR CMP, PILLAR LIPID, PILLAR TSH #### [place] [address] [place] #### NICOTINE QUAL #### [facility] , Hemoglobin [Mass/volume] in BloodOrdered By: Addi Ortega on 04-08-2023 Hemoglobin (Bld) [Mass/Vol] 13.6 g/dL Normal 11.8-15.4 [facility] Comment on above: Performed By: #### P ILLAR CBC, PILLAR CMP, PILLAR LIPID, PILLAR TSH #### [place] [address] [place] #### NICOTINE QUAL #### [facility] , Leukocytes [#/volume] correc hamilton for nucleated erythrocytes in Blood by Automated counOrdered By: Addi Ortega on 04-08-2023 WBC corrected for nucl RBC Auto (Bld) [#/Vol] 7.6 10*3/uL 3.8-11.6 [facility] Leukocytes [#/volume] in Blo od by Automated countOrdered By: Addi Ortega on 04-08-2023 WBC (Bld) [#/Vol] 7.6 10*3/uL Normal 3.8-11.6 [facility] Comment on above: Performed By: #### P ILLAR CBC, PILLAR CMP, PILLAR LIPID, PILLAR TSH #### [address] #### NICOTINE QUAL #### [facility] , Lymphocytes [#/volume] in Bl ood by Automated countOrdered By: Addi Ortega on 04-08-2023 Lymphocytes (Bld) [#/Vol] 2.9 10*3/uL Normal 1.00-4.8 [facility] Comment on above: Performed By: #### P ILLAR CBC, PILLAR CMP, PILLAR LIPID, PILLAR TSH #### [address] #### NICOTINE QUAL #### [facility] , Lymphocytes/100 leukocytes i n Blood by Automated countOrdered By: Addi Ortega on 04-08-2023 Lymphocytes/100 WBC (Bld) 38.6 % Normal . [facility] Comment on above: Performed By: #### P ILLAR CBC, PILLAR CMP, PILLAR LIPID, PILLAR TSH #### [facility] [address] [place] [address] [place] #### NICOTINE QUAL #### [facility] , MCH [Entitic mass] by Automa hamilton countOrdered By: Addi Ortega on 04-08-2023 MCH (RBC) [Entitic mass] 31.6 pg Normal 24.7-34.3 [facility] Comment on above: Performed By: #### P ILLAR CBC, PILLAR CMP, PILLAR LIPID, PILLAR TSH #### [facility] [address] [place] [address] [place] #### NICOTINE QUAL #### [facility] , MCHC Auto (RBC) [Mass/Vol]Or dered By: Addi Ortega on 04-08-2023 MCHC (RBC) [Mass/Vol] 34.5 g/dL 32.0-35.0 [facility] MCV [Entitic volume] by Auto mated countOrdered By: Addi Ortega on 04-08-2023 MCV (RBC) [Entitic vol] 91.7 fL Normal 80-100 [facility] Comment on above: Performed By: #### P ILLAR CBC, PILLAR CMP, PILLAR LIPID, PILLAR TSH #### [facility] [address] [place] [address] [place] #### NICOTINE QUAL #### [facility] , Neutrophils [#/volume] in Bl ood by Automated countOrdered By: Addi Ortega on 04-08-2023 Neutrophils (Bld) [#/Vol] 4.1 10*3/uL Normal 1.8-7.7 [facility] Comment on above: Performed By: #### P ILLAR CBC, PILLAR CMP, PILLAR LIPID, PILLAR TSH #### [facility] [address] [place] [address] [place] #### NICOTINE QUAL #### [facility] , Nicotine Metabolite, QualOrd ered By: Addi Ortega on 04-08-2023 Nicotine Metabolite Negative Normal Cutoff=25 [facility] Comment on above: Performed at: [facility] - Magda bonilla [address] [id number] Director: Catherine Mendoza MD, Phone: [phone] Result Comment: Perf ormed at: [facility] - [facility] [address] [id number] [employer]urchasing Internship: Catherine Mendoza MD, Phone: [phone] PERFORMED BY: [place] [address] PATHOLOGIST WASH OIL PUMP OPERATOR JORDI SMITH M.D. Performed By: #### P ANTHONY #### [facility] , No Panel InformationOrdered By: Addi Ortega on 04-08-2023 Estimated GFR (CKD-EPI) > 60.0 mL/Min [facility] Creatinine Clearance (Chem N/A [facility] Nucleated erythrocytes [Pres ence] in Blood by Automated countOrdered By: Addi Ortega on 04-08-2023 Nucleated RBC Auto Ql (Bld) 0.0 /100{WBC} 0-0.5 [facility] Platelet mean volume [Entiti c volume] in Blood by Automated countOrdered By: Addi Ortega on 04-08-2023 Platelet mean volume (Bld) [Entitic vol] 8.6 fL Normal 6.3-10.7 [facility] Comment on above: Performed By: #### P ILLAR CBC, PILLAR CMP, PILLAR LIPID, PILLAR TSH #### [facility] [address] [place] [address] [place] #### NICOTINE QUAL #### [facility] , Platelets [#/volume] in Bloo d by Automated countOrdered By: Addi Ortega on 04-08-2023 Platelets (Bld) [#/Vol] 361 10*3/uL Normal 150-450 [facility] Comment on above: Performed By: #### P ILLAR CBC, PILLAR CMP, PILLAR LIPID, PILLAR TSH #### [place] [address] [place] #### NICOTINE QUAL #### [facility] , Potassium [Moles/volume] in Serum or PlasmaOrdered By: Addi Ortega on 04-08-2023 Potassium [Moles/Vol] 4.6 mmol/L Normal 3.5-5.1 [facility] Comment on above: Performed By: #### P ILLAR CBC, PILLAR CMP, PILLAR LIPID, PILLAR TSH #### [place] [address] [place] #### NICOTINE QUAL #### [facility] , Protein [Mass/volume] in Ser um or PlasmaOrdered By: Addi Ortega on 04-08-2023 Protein [Mass/Vol] 7.5 g/dL Normal 6.4-8.9 [facility] Comment on above: Performed By: #### P ILLAR CBC, PILLAR CMP, PILLAR LIPID, PILLAR TSH #### [address] #### NICOTINE QUAL #### [facility] , Serum globulin measurement b y calculation (mass/volume)Ordered By: Addi Ortega on 04-08-2023 Globulin (S) [Mass/Vol] 2.7 g/dL Normal [facility] Comment on above: Performed By: #### P ILLAR CBC, PILLAR CMP, PILLAR LIPID, PILLAR TSH #### [address] #### NICOTINE QUAL #### [facility] , Serum or plasma albumin/glob ulin mass ratioOrdered By: Addi Ortega on 04-08-2023 Albumin/Globulin [Mass ratio] 1.8 {ratio} Normal [facility] Comment on above: Performed By: #### P ILLAR CBC, PILLAR CMP, PILLAR LIPID, PILLAR TSH #### [facility] [address] [place] [address] [place] #### NICOTINE QUAL #### [facility] , Serum or plasma anion gap de terminationOrdered By: Addi Ortega on 04-08-2023 Anion gap [Moles/Vol] 12.2 mmol/L Normal 6.0-15.0 [facility] Comment on above: Performed By: #### P ILLAR CBC, PILLAR CMP, PILLAR LIPID, PILLAR TSH #### [place] [address] [place] #### NICOTINE QUAL #### [facility] , Serum or plasma high density lipoprotein (HDL) cholesterol measurementOrdered By: Addi Ortega on 04-08-2023 Cholesterol in HDL [Mass/Vol] 45 mg/dL Normal 23-92 [facility] Comment on above: HDL CHOL ATP-III CLA SSIFICATION Cardiovascular RiskHDL > or equal to 60 mg/dL LOWHDL < 40 mg/dL HIGH Result Comment: HDL CHOL ATP-III CLASSIFICATION Cardiovascular Risk HDL > or equal to 60 mg/dL LOW HDL < 40 mg/dL HIGH Performed By: #### P ILLAR CBC, PILLAR CMP, PILLAR LIPID, PILLAR TSH #### [facility] [address] [place] [address] [place] #### NICOTINE QUAL #### [facility] , Serum or plasma total choles terol/high density lipoprotein (HDL) cholesterol mass ratOrdered By: Addi Ortega on 04-08-2023 Cholesterol.total/Alexandra sterol in HDL [Mass ratio] 3.6 {ratio} Normal <5.0 [facility] Comment on above: Performed By: #### P ILLAR CBC, PILLAR CMP, PILLAR LIPID, PILLAR TSH #### [facility] [address] [place] [address] [place] #### NICOTINE QUAL #### [facility] , Sodium [Moles/volume] in Ser um or PlasmaOrdered By: Addi Ortega on 04-08-2023 Sodium [Moles/Vol] 139 mmol/L Normal 136-145 [facility] Comment on above: Performed By: #### P ILLAR CBC, PILLAR CMP, PILLAR LIPID, PILLAR TSH #### [facility] [address] [place] [address] [place] #### NICOTINE QUAL #### [facility] , Thyrotropin [Units/volume] i n Serum or PlasmaOrdered By: Addi Ortega on 04-08-2023 TSH Qn 4.55 m[IU]/L 0.45-5.33 [facility] Triglyceride [Mass/volume] i n Serum or PlasmaOrdered By: Addi Ortega on 04-08-2023 Triglyceride [Mass/Vol] 92 mg/dL 0-149 [facility] Comment on above: TRIG ATP III CLASSIF ICATIONTRIG less than 150 mg/dL NormalTRIG 150-199 mg/dL Borderline highTRIG 200-500 mg/dL High TRIG greater than 500 mg/dL Very highStandard traceable to the Center for Disease Conrtrol and Prevention (CDC) test method. Urea nitrogen [Mass/volume] in Serum or PlasmaOrdered By: Addi Ortega on 04-08-2023 Urea nitrogen [Mass/Vol] 18 mg/dL Normal 03-09 [facility] Comment on above: Performed By: #### P ILLAR CBC, PILLAR CMP, PILLAR LIPID, PILLAR TSH #### [facility] [address] #### NICOTINE QUAL #### [facility] , C Urineon 03-24-2023 Bacteria identified Cx Nom (U) Microbiology PROCEDURE: Urine Culture [R1] SOURCE: U CleanCatch BODY SITE: COLLECTED DATE/TIME: 03/22/2023 20:17 EDT RECEIVED DATE/TIME: 03/22/2023 20:53 EDT START DATE/TIME: 03/22/2023 20:53 EDT FREE TEXT SOURCE: Gabriel Curtis DO, DO, Kaylinn A FINAL REPORTS Final Report [] Verified Date/Time: 03/24/2023 08:20 EDT 5,000 cfu/ml Mixed skin contaminants Performing Locations R1: This test was performed at: [facility], [address] [place] [address], [id number] , [place], Normal [facility] Comment on above: Performed By: #### 2 [id number], [id number], [id number], [id number], 3155814, 1257987 #### [facility] [address] [place] [address] Abdomen/Pelvis w/o Contra ston 03-23-2023 CT Abdomen/Pelvis w/o Contrast Exam Date/Time: 03/22/2023 21:03 EDT Reason for Exam: Abdominal pain, acute, nonlocalized;Other (please specify) Report IMPRESSION: A FEW MILDLY PROMINENT RIGHT LOWER QUADRANT LYMPH NODES, POSSIBLY MESENTERIC ADENITIS. A FEW PUNCTATE NONOBSTRUCTING RIGHT RENAL CALCULI. CHOLELITHIASIS. CLINICAL HISTORY: Abdominal pain, acute, nonlocalized. COMPARISON: None available. TECHNIQUE: Spiral unenhanced images were obtained of the abdomen and pelvis without contrast. All CT scans at this facility use dose modulation, iterative reconstruction, and/or weight based dosing when appropriate to reduce radiation dose to as low as reasonably achievable. FINDINGS: The appendix was preliminarily reported as measuring up to 1 cm in caliber, but on the coronal studies of this appears to be partial volume averaging with an adjacent small bowel loop (image 42 - coronal series 3), and the appendix measures approximately 5 to 6 mm in caliber and is otherwise unremarkable in appearance. A few mildly prominent right lower quadrant mesenteric lymph nodes may be mesenteric adenitis, measuring up to approximately 6 to 7 mm in short axis (image 52 - axial series 2). Very small calcified gallstones are noted in the dependent aspect of an otherwise unremarkable appearing gallbladder. An approximately 2.5 cm low density left ovarian cyst is present. There is no free fluid, significant inflammatory changes, or other acute findings identified. A few punctate right renal calculi are best visualized on the coronal reconstructions. Both unenhanced kidneys are otherwise unremarkable. There is no hydronephrosis, ureteral or bladder calculi, or other findings of concern identified elsewhere. The unenhanced liver, pancreas, spleen, adrenal glands, unopacified great vessels, uterus, right adnexa, nearly decompressed urinary bladder, the visualized lung bases and musculoskeletal structures are unremarkable. Report Ordering Provider: Hector Correa FINAL REPORT Dictated: 03/23/2023 8:50 am Dwayne Dallas MD Signed (Electronic Signature): 03/23/2023 8:50 am Signed by: Dwayne Dallas MD Transcribed by: EDWIN Technologist: KG Technical Comments Rectal Contrast Given? No Oral contrast amount in ml's: 0 Normal [facility] Discharge Instructionson Discharge Instructions [id number]# 1.00CD:127 Normal [facility] ED Note-Physicianon 03-23-20 ED Note-Physician Basic Information Time Seen: Sunny BECKHAM Hector AnayaEfren 03/22/2023 20:14 Chief Complaint Pt. presetns to the ed with c/o right flank pain, nausea, burning with urination that started last . History of Present Illness A 27-year-old female reports Emergency Department with a chief complaint of right-sided flank pains, some nausea, and burning with urination. She states that all this, started last . Reports that today has been a little worse, is concerned for possible kidney stone. Reports that she does have a history of kidney stones. Reports it is mostly into her right flank. States that she does not want any medications. States that she was at [facility], where she did wait about 5 hours in the emergency department. Reports that he was unable to be seen, states she came here to be quicker. Denies any fevers or chills. Believes that she may have a UTI as well. She denies any episodes of vomiting. Review of Systems A 10 point review of systems is negative except as noted above. Medical and Surgical History: Reviewed and noted Social history: Lives at home Family History: Reviewed. Tobacco: Denies Physical Exam Vitals & Measurements T: 36.7 ?C(Oral) HR: 80(Monitored) RR: 16 BP: 128/74 SpO2: 98% HT: 170.18 cm WT: 113.5 kg BMI: 39.19 General: The patient appears well and in no apparent distress. Patient is resting comfortably on bed. Afebrile Skin: Warm, dry, no pallor noted. Head: Normocephalic, atraumatic Neck: No JVD Eye: PERRLA, EOMI ENT: Moist mucus membranes Cardiovascular: Regular rate normal peripheral perfusion Respiratory: No respiratory distress no accessory muscle use no obvious audible wheezing Chest Wall: no deformity Musculoskeletal: normal ROM, no deformity, no swelling GI: No obvious distention soft nontender nondistended no guarding rebounding or rigidity. No right lower quadrant tenderness. There is moderate/mild right-sided CVA tenderness. Neurological: A&O moves all extremities equal strength and symmetry Psychiatric: Cooperative and appropriate Medical Decision Making MEDICAL DECISION MAKING Number and Complexity of Problems Differential Diagnosis: [] [facility] Data External documents reviewed: [] My EKG interpretation: [] My CT interpretation: reviewed My X-ray interpretation: [] My Ultrasound interpretation: [] Decision rules/scores evaluated: [] Discussed with: [] Treatment and Disposition ED Course: A 27-year-old female reports emergency department with a chief complaint of possible UTI, right-sided flank pain as well. She is concerned for possibly of kidney stones. She does have a history of kidney stones. On physical exam she is afebrile. She does not want any medications for symptoms. She wants a CT scan as well as lab work. Lab work was performed. Lab work reviewed and noted. No acute changes seen. She is positive for likely UTI. We did do a CT of her abdomen pelvis without contrast looking for kidney stones. CT did show possible early appendicitis, as is not excluded in the correct clinical setting. Patient has no right lower quadrant tenderness on palpation and no McBurney point tenderness. She does have right-sided CVA tenderness. 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 Due to this, I did feel comfortable discharging her home, and discussed the CT results with her. I did reach out to our trauma surgeon, Dr. Saab, discussed the case with him. He stated that he did not really make, appendicitis, and with her having a medical background, as well as very vague symptoms at this time, felt comfortable with keeping the patient at home, and just monitoring symptoms. He discussed that if any symptoms were to worsen, to immediately report back for ultrasound or CT scan with contrast. I did reach out to the patient, and did discuss this in full detail with her. She was agreeable with this. She is aware of symptoms to look out for. Discussed return precautions. Follow-up with your primary care provider in 3 to 5 days. If symptoms worsen, do not improve, or new symptoms arise please report back to emergency department for further evaluation. The patient was understanding and agreeable to plan moving forward. Shared decision making: [] Code status: [] Assessment/Plan Right flank pain (R10.9: Unspecified abdominal pain) UTI (urinary tract infection) (N39.0: Urinary tract infection, site not specified) Orders: cephalexin, 500 mg = 1 cap(s), Oral, q6hr, X 7 day(s), # 28 cap(s), Refills(s) 0, Pharmacy: [facility], 170.2, cm, 03/22/23 20:14:00 EDT, Height/Length Dosing, 113.5, kg, 03/22/23 20:14:00 EDT, Weight Dosing ketorolac, 30 mg = 1 mL, Injection, IV Push, Once, Stop date 03/22/23 20:51:00 EDT, STAT, Start date 03/22/23 20:51:00 EDT, 03/22/23 20:51:00 EDT ondansetron, 4 mg = 2 mL, Injection, IV Push, Once, Stop date 03/22 (more content not included)... Normal [facility] Comment on above: Result Comment: Elec tronically Signed By: Sunny BECKHAM, Hector Rodriguez\.br\Date and Time Signed: 03/22/23 23:35 EDT\.br\Electronically Co-Signed By: Gabriel Curtis DO\.br\Date and Time Co-Signed: 03/23/23 03:21 EDT RAD - Preliminary Cat Scan R eporton 03-23-2023 RAD - Preliminary Cat Scan Report [id number]# 1.00CD:127 Normal [facility] Auto Diffon 03-22-2023 Basophils/100 WBC (Bld) 0.5 % Normal 0.0-2.0 [facility] Comment on above: Order Comment: Order Added by Discern Expert. Performed By: #### 2 287992, 0899302, 15436577, 1676324, 3187757, 7333764 #### [facility] [address] [place] [address] Basophils/Leukocytes Auto (Bld) [Pure # fraction] 0.0 E9/L Normal 0.0-0.2 [facility] Comment on above: Order Comment: Order Added by Discern Expert. Performed By: #### 2 282883, 5105896, 91427016, 9283567, 5763932, 1825227 #### [facility] [address] [place] [address] Eosinophils/100 WBC (Bld) 1.5 % Normal 0.0-8.0 [facility] Comment on above: Order Comment: Order Added by Discern Expert. Performed By: #### 2 691426, 2064113, 91751308, 9974657, 1290118, 9053443 #### [facility] [address] [place] [address] Eosinophils/Leukocytes Auto (Bld) [Pure # fraction] 0.1 E9/L Normal 0.0-0.5 [facility] Comment on above: Order Comment: Order Added by Discern Expert. Performed By: #### 2 900063, 9336542, 37314451, 0637397, 3969504, 5713773 #### [facility] [address] [place] [address] Lymphocytes/100 WBC (Bld) 34.9 % Normal 14.0-50.0 [facility] Comment on above: Order Comment: Order Added by Discern Expert. Performed By: #### 2 446622, 2485673, 35138719, 4176018, 0974683, 4844103 #### [facility] [address] [place] [address] Lymphocytes/Leukocytes Auto (Bld) [Pure # fraction] 3.4 E9/L Normal 1.0-4.0 [facility] Comment on above: Order Comment: Order Added by Discern Expert. Performed By: #### 2 271434, 1495596, 91826437, 8267884, 8245854, 6868888 #### [facility] [address] [place] [address] Monocytes/100 WBC (Bld) 6.0 % Normal 4.0-14.0 [facility] Comment on above: Order Comment: Order Added by Discern Expert. Performed By: #### 2 017891, 8485926, 43814871, 5119781, 9329982, 8782047 #### [facility] [address] [place] [address] Monocytes/Leukocytes Auto (Bld) [Pure # fraction] 0.6 E9/L Normal 0.2-1.0 [facility] Comment on above: Order Comment: Order Added by Discern Expert. Performed By: #### 2 850023, 1984378, 25255360, 5529480, 3716857, 9256901 #### [facility] [address] [place] [address] Neutrophils/100 WBC (Bld) 57.1 % Normal 36.0-75.0 [facility] Comment on above: Order Comment: Order Added by Discern Expert. Performed By: #### 2 053903, 8730346, 89058756, 2815204, 4976359, 7122386 #### [facility] [address] [place] [address] Neutrophils/Leukocytes Auto (Bld) [Pure # fraction] 5.6 E9/L Normal 2.0-7.5 [facility] Comment on above: Order Comment: Order Added by Discern Expert. Performed By: #### 2 851723, 7446792, 62035958, 8756107, 5953206, 5076571 #### [facility] [address] [place] [address] BMPon 03-22-2023 Creatinine [Mass/Vol] 0.5 mg/dL Normal 0.5-1.3 [facility] Comment on above: Performed By: #### 2 063301, 2341521, 13401346, 8779769, 9618267, 6332483 #### [facility] [address] [place] [address] Urea nitrogen [Mass/Vol] 15 mg/dL Normal 5-21 [facility] Comment on above: Performed By: #### 2 733867, 7873327, 11293954, 1154862, 4090975, 2289343 #### [facility] [address] [place] [address] Urea nitrogen/Creatinine [Mass ratio] 30 No Units High 10-20 [facility] Comment on above: Performed By: #### 2 731111, 4054036, 30275394, 3438069, 1351273, 6268031 #### [facility] [address] [place] [address] Anion gap [Moles/Vol] 15 mmol/L Normal 6-16 [facility] Comment on above: Performed By: #### 2 877127, 2914451, 70820399, 4456316, 7040700, 0889615 #### [facility] [address] [place] [address] Calcium [Mass/Vol] 9.6 mg/dL Normal 8.9-11.1 [facility] Comment on above: Performed By: #### 2 533555, 7517229, 21830399, 5410459, 1673703, 6282613 #### [facility] [address] [place] [address] Chloride [Moles/Vol] 103 mmol/L Normal 101-111 [facility] Comment on above: Performed By: #### 2 466833, 1181348, 59648267, 1040774, 8193247, 3544708 #### [facility] [address] [place] [address] CO2 [Moles/Vol] 23 mmol/L Normal 21-31 [facility] Comment on above: Performed By: #### 2 972904, 1587192, 23038623, 0039590, 4221662, 6432518 #### [facility] [address] [place] [address] Glucose [Mass/Vol] 84 mg/dL Normal 55-199 [facility] Comment on above: Result Comment: If t his glucose result represents a fasting glucose, interpretation should refer to the following reference range: 55-99 mg/dL Performed By: #### 2 136872, 5981701, 87433264, 7998072, 3357637, 2052469 #### [facility] [address] [place] [address] Potassium [Moles/Vol] 3.7 mmol/L Normal 3.5-5.3 [facility] Comment on above: Performed By: #### 2 453563, 9780099, 40001356, 7079555, 3093739, 1595346 #### [facility] [address] [place] [address] Sodium [Moles/Vol] 137 mmol/L Normal 135-145 [facility] Comment on above: Performed By: #### 2 017945, 4715066, 88393186, 8958878, 8123952, 4500029 #### [facility] [address] [place] [address] CBC w/ Auto Diffon 3 Erythrocyte distribution width (RBC) [Ratio] 12.5 % Normal 10.9-14.2 [facility] Comment on above: Performed By: #### 2 713222, 9436486, 15827847, 3043098, 7521655, 4010590 #### [facility] [address] [place] [address] Hematocrit (Bld) [Volume fraction] 37.7 % Normal 34.0-46.0 [facility] Comment on above: Performed By: #### 2 397836, 3005458, 91152237, 6764228, 7909338, 2965348 #### [facility] [address] [place] [address] Hemoglobin (Bld) [Mass/Vol] 13.1 g/dL Normal 12.0-16.0 [facility] Comment on above: Performed By: #### 2 334399, 0649490, 59862172, 2641583, 2338920, 9245598 #### [facility] [address] [place] [address] MCH (RBC) [Entitic mass] 31.9 pg Normal 27.0-34.0 [facility] Comment on above: Performed By: #### 2 405644, 5069911, 25321496, 9649417, 8098566, 7455427 #### [facility] [address] [place] [address] MCHC (RBC) [Mass/Vol] 34.8 g/dL Normal 31.4-36.0 [facility] Comment on above: Performed By: #### 2 419206, 2552883, 89964815, 4545221, 0711215, 3860292 #### [facility] [address] [place] [address] MCV (RBC) [Entitic vol] 91.6 fL Normal 80.0-100.0 [facility] Comment on above: Performed By: #### 2 424173, 5519692, 48419571, 5624463, 9796871, 2161362 #### [facility] [address] [place], [place] [address] Platelet mean volume (Bld) [Entitic vol] 7.6 fL Normal 6.4-10.8 [facility] Comment on above: Performed By: #### 2 903815, 9343054, 32372854, 7972098, 7511547, 2200017 #### [facility] [address] [place] [address] Platelets (Bld) [#/Vol] 306.0 E9/L Normal 150.0-500.0 [facility] Comment on above: Performed By: #### 2 974392, 9653570, 59176093, 0865781, 8615199, 7496659 #### [facility] [address] [place] [address] RBC (Bld) [#/Vol] 4.1 E12/L Low 4.3-5.9 [facility] Comment on above: Performed By: #### 2 464964, 4061326, 38141419, 5116317, 0512344, 7382947 #### [facility] [address] [place] [address] 30193 WBC corrected for nucl RBC Auto (Bld) [#/Vol] 9.8 E9/L Normal 4.0-11.0 [facility] Comment on above: Performed By: #### 2 331784, 0544762, 72619449, 0493056, 1302294, 6820758 #### [facility] [address] [place], [place] [address] CHEMISTRYOrdered By: SYSTEM SYSTEM on 03-22-2023 Albumin [Mass/Vol] 4.2 g/dL Normal 3.3 - 5.0 gm/dL [facility] Albumin/Globulin [Mass ratio] 1.4 {ratio} Normal 1.1 - 2.2 [facility] ALP [Catalytic activity/Vol] 54 [iU]/d Normal 21 - 98 Int._Unit/L [facility] ALT No additional P-5'-P [Catalytic activity/Vol] 24 [iU]/d Normal 6 - 46 Int._Unit/L [facility] Anion gap [Moles/Vol] 15 mmol/L Normal 6 - 16 mEq/L [facility] AST [Catalytic activity/Vol] 18 [iU]/d Normal 5 - 43 Int._Unit/L [facility] Bilirubin [Mass/Vol] 0.7 mg/dL Normal 0.0 - 1 .1 mg/dL [facility] Bilirubin.direct [Mass/Vol] 0.1 mg/dL Normal 0.1 - 0.4 mg/dL [facility] Bilirubin.indirect [Mass or moles/Vol] 0.6 mg/dL Normal 0.1 - 0.9 mg/dL [facility] Calcium [Mass/Vol] 9.6 mg/dL Normal 8.9 - 11. 1 mg/dL [facility] Chloride [Moles/Vol] 103 mmol/L Normal 101 - 1 11 mmol/L [facility] CO2 [Moles/Vol] 23 mmol/L Normal 21 - 31 mmol/L [facility] Creatinine [Mass/Vol] 0.5 mg/dL Normal 0.5 - 1.3 mg/dL [facility] GFR/1.73 sq M.predicted among non-blacks MDRD (S/P/Bld) [Vol rate/Area] 133 mL/min/1.73 m2 Normal >=59mL/min/ 1.73 m2 [facility] Chem S Globulin (S) [Mass/Vol] 3.1 g/dL Normal 1.4 - 4.0 gm/dL [facility] Glucose [Mass/Vol] 84 mg/dL Normal 55 - 199 mg/dL [facility] Lipase [Catalytic activity/Vol] 28 U/L Normal 13 - 58 unit/L [facility] Potassium [Moles/Vol] 3.7 mmol/L Normal 3.5 - 5.3 mmol/L [facility] Protein [Mass/Vol] 7.3 g/dL Normal 6.0 - 7.8 gm/dL [facility] Sodium [Moles/Vol] 137 mmol/L Normal 135 - 145 mmol/L [facility] Urea nitrogen [Mass/Vol] 15 mg/dL Normal 5 - 21 mg/dL [facility] Urea nitrogen/Creatinine [Mass ratio] 30 mg/mg High 10 - 20 [facility] Consent for Treatmenton Consent for Treatment [id number] .[id number]:127 Normal [facility] ED Clinical Summaryon 2022 ED Clinical Summary [place] [id number] ED Clinical Summary Person Information Name: TAWNYA HERRING Deysi/[facility] Age: 27 Years : 1995 Sex: Female Language: Malagasy PCP: DARWIN JONES CNP Marital Status: Single Phone: [phone] Visit Id: Visit Reason: Dysuria; Nausea; Flank pain; RT FLANK PAIN Speciality: Acuity: 3 Enc Type: Emergency Med Service: Emergency Arrival: 03/22/2023 19:52:37 Discharge: 03/22/2023 22:52:40 LOS: 000 03:00 Checkin: 03/22/2023 19:52:37 Checkout: 03/22/2023 22:52:40 Dispo Type: Home (Routine DC) EVENTS: Event Name Event Status Request Date/Time Start Date/Time Complete Date/Time Arrive Complete 03/22/2023 19:52:37 03/22/2023 19:52:37 03/22/2023 19:52:37 Document Home Meds Request 03/22/2023 19:52:37 Triage Complete 03/22/2023 19:52:37 03/22/2023 20:14:02 03/22/2023 20:14:02 Dr Exam Complete 03/22/2023 20:14:26 03/22/2023 20:14:26 03/22/2023 20:14:26 Registration Complete 03/22/2023 20:14:26 03/22/2023 20:22:07 03/22/2023 20:22:07 Pending Labs Complete 03/22/2023 20:14:32 03/22/2023 20:38:03 Lab Complete 03/22/2023 20:14:32 03/22/2023 20:38:03 Urine Collect Complete 03/22/2023 20:14:32 03/22/2023 20:38:03 Dr Exam Complete 03/22/2023 20:15:13 03/22/2023 20:15:13 03/22/2023 20:15:13 Reg Complete Request 03/22/2023 20:22:07 Reg Bed Request Complete 03/22/2023 20:22:07 03/22/2023 20:22:07 03/22/2023 20:22:07 Pending Labs Inlab 03/22/2023 20:28:53 03/22/2023 20:28:53 Lab Inlab 03/22/2023 20:28:53 03/22/2023 20:28:53 Bed Assign Complete 03/22/2023 20:36:59 03/22/2023 20:36:59 03/22/2023 20:36:59 RN Exam Complete 03/22/2023 20:36:59 03/22/2023 20:44:44 03/22/2023 20:44:44 Pending Labs Complete 03/22/2023 20:41:08 03/22/2023 20:41:08 03/22/2023 20:49:11 Lab Complete 03/22/2023 20:41:08 03/22/2023 20:41:08 03/22/2023 20:49:11 Urine Collect Complete 03/22/2023 20:41:08 03/22/2023 20:41:08 03/22/2023 20:49:11 Meds Admin Complete 03/22/2023 20:52:01 03/22/2023 20:56:46 Pending Labs Complete 03/22/2023 20:52:01 03/22/2023 21:37:54 Lab Complete 03/22/2023 20:52:01 03/22/2023 21:37:54 Patient Care Complete 03/22/2023 20:52:01 03/22/2023 20:56:31 CT Complete 03/22/2023 20:52:01 03/22/2023 21:02:03 03/22/2023 21:03:15 Pending Labs Complete 03/22/2023 21:14:58 03/22/2023 21:14:58 03/22/2023 21:37:54 Lab Complete 03/22/2023 21:14:58 03/22/2023 21:14:58 03/22/2023 21:37:54 Pending Labs Complete 03/22/2023 21:18:14 03/22/2023 21:18:14 03/22/2023 21:18:21 Lab Complete 03/22/2023 21:18:14 03/22/2023 21:18:14 03/22/2023 21:18:21 Discharge Complete 03/22/2023 22:49:36 03/22/2023 22:52:44 03/22/2023 22:52:44 Transfer Complete 03/22/2023 22:52:44 03/22/2023 22:52:44 03/22/2023 22:52:44 ADDRESS: [address] [place] [phone] PHYS DOC NOTES: MEDICAL INFORMATION: Prescriptions Given: New Medications [facility], [address] [place] [id number], [phone] cephalexin (Keflex 500 mg Cap) 1 Capsules By Mouth every 6 hours for 7 Days. Refills: 0. Medications to Continue with No Changes Other Medications acetaminophen-hydroco done ([place] 325 mg-5 mg oral tablet) 2 Tablets By Mouth 4 times a day as needed for pain. Refills: 0. aspirin (aspirin 81 mg oral capsule) By Mouth every 4 hours. citalopram (CeleXA 20 mg Tab) 1 Tablets By Mouth every day. citalopram (citalopram 20 mg Tab) diphenhydrAMINE (Unisom Sleep Gels) By Mouth Once. nitrofurantoin (Macrobid) By Mouth 2 times a day. ondansetron (Zofran 4 mg Tab) By Mouth every 8 hours. promethazine (promethazine 12.5 mg oral tablet) pyridoxine (Vitamin B6 100 mg Tab) By Mouth every day. PATIENT EDUCATION INFORMATION: Instructions: Urinary Tract Infection, Adult, [id number] Follow up: With: Address: When: DARWIN JONES [facility] [place] [phone] [place] (1) In 3 days 03/25/2023 Comments: Follow-up with your primary care provider in 3 to 5 days. If symptoms worsen, do not improve, or new symptoms arise please report back to emergency department for further evaluation. DIAGNOSIS: UTI (urinary tract infection) Normal [facility] ED Patient Education Noteon 03-22-2023 ED Patient Education Note Obstetrics and Gynecology Urinary Tract Infection, Adult A urinary tract infection (UTI) is an infection of any part of the urinary tract. The urinary tract includes: ? The kidneys. ? The ureters. ? The bladder. ? The urethra. These organs make, store, and get rid of pee (urine) in the body. What are the causes? This infection is caused by germs (bacteria) in your genital area. These germs grow and cause swelling (inflammation) of your urinary tract. What increases the risk? The following factors may make you more likely to develop this condition: ? Using a small, thin tube (catheter) to drain pee. ? Not being able to control when you pee or poop (incontinence). ? Being female. If you are female, these things can increase the risk: ? Using these methods to prevent : ? A medicine that kills sperm (spermicide). ? A device that blocks sperm (diaphragm). ? Having low levels of a female hormone (estrogen). ? Being . You are more likely to develop this condition if: ? You have genes that add to your risk. ? You are sexually active. ? You take antibiotic medicines. ? You have trouble peeing because of: ? A prostate that is bigger than normal, if you are male. ? A blockage in the part of your body that drains pee from the bladder. ? A kidney stone. ? A nerve condition that affects your bladder. ? Not getting enough to drink. ? Not peeing often enough. ? You have other conditions, such as: ? Diabetes. ? A weak disease-fighting system (immune system). ? Sickle cell disease. ? Gout. ? Injury of the spine. What are the signs or symptoms? Symptoms of this condition include: ? Needing to pee right away. ? Peeing small amounts often. ? Pain or burning when peeing. ? Blood in the pee. ? Pee that smells bad or not like normal. ? Trouble peeing. ? Pee that is cloudy. ? Fluid coming from the vagina, if you are female. ? Pain in the belly or lower back. Other symptoms include: ? Vomiting. ? Not feeling hungry. ? Feeling mixed up (confused). This may be the first symptom in older adults. ? Being tired and grouchy (irritable). ? A fever. ? Watery poop (diarrhea). How is this treated? ? Taking antibiotic medicine. ? Taking other medicines. ? Drinking enough water. In some cases, you may need to see a specialist. Follow these instructions at home: Medicines ? Take asbi-zzs-pposczs and prescription medicines only as told by your doctor. ? If you were prescribed an antibiotic medicine, take it as told by your doctor. Do not stop taking it even if you start to feel better. General instructions ? Make sure you: ? Pee until your bladder is empty. ? Do not hold pee for a long time. ? Empty your bladder after sex. ? Wipe from front to back after peeing or pooping if you are a female. Use each tissue one time when you wipe. ? Drink enough fluid to keep your pee pale yellow. ? Keep all follow-up visits. Contact a doctor if: ? You do not get better after 1?2 days. ? Your symptoms go away and then come back. Get help right away if: ? You have very bad back pain. ? You have very bad pain in your lower belly. ? You have a fever. ? You have chills. ? You feeling like you will vomit or you vomit. Summary ? A urinary tract infection (UTI) is an infection of any part of the urinary tract. ? This condition is caused by germs in your genital area. ? There are many risk factors for a UTI. ? Treatment includes antibiotic medicines. ? Drink enough fluid to keep your pee pale yellow. This information is not intended to replace advice given to you by your health care provider. Make sure you discuss any questions you have with your health care provider. Document Revised: 03/14/2021 Document Reviewed: 03/14/2021 Elsevier Patient Education ? 2022 [employer] Normal [facility] ED Patient Summaryon 023 ED Patient Summary [place] [id number] Patient Discharge Instructions Person Information Name: TAWNYA HERRING Age: 27 Years Arrival Date: 03/22/2023 19:52:37 Discharge Diagnosis: UTI (urinary tract infection) Primary Care Physician: DARWIN JONES CNP Provider Information Primary Provider: Gabriel Curtis DO Advanced Contract Negotiation Manager:None The exam and treatment you received in the Emergency Department were for an urgent problem and are not intended as complete care. It is important that you follow up with a doctor, nurse practitioner, or physician?s evaluation assistant for ongoing care. If your symptoms become worse or you do not improve as expected and you are unable to reach your usual health care provider, you should return to the Emergency Department. We are available 24 hours a day. TAWNYA HERRING Romie has been given the following list of patient education materials, prescriptions and follow-up instructions: Follow-up Instructions: With: Address: When: DARWIN JONES [address] [place] [id number] [phone] Business (1) In 3 days 03/25/2023 Comments: Follow-up with your primary care provider in 3 to 5 days. If symptoms worsen, do not improve, or new symptoms arise please report back to emergency department for further evaluation. In the event that this physician does not participate in your insurance network, please consult with your insurance company to find a nearby participating provider. Patient Education Materials: Urinary Tract Infection, Adult, Ytbz-oy-Oyet A MESSAGE TO ALL PATIENTS REGARDING OPIOIDS PRESCRIPTION OPIOIDS: WHAT YOU NEED TO KNOW Prescription opioids can be used to help relieve pwppxafe-lf-jyqxuq pain and are often prescribed following a surgery or injury, or for certain health conditions. These medications can be an important part of the treatment but also come with serious risks. It is important to work with your healthcare provider to make sure you are getting the safest, most effective care. WHAT ARE THE RISKS AND SIDE EFFECTS OF OPIOID USE? Prescription opioids carry serious risks of addiction and overdose, especially with prolonged use. An opioid overdose, often marked by slowed breathing, can cause sudden . The use of prescription opioids can have a number of side effects as well, even when taken as directed: ? Tolerance?meaning you might need to take more of the medication for the same pain relief ? Physical dependence?meaning you have symptoms of withdrawal when a medication is stopped ? Increased sensitivity to pain ? Constipation ? Nausea, vomiting, and dry mouth ? Sleepiness and dizziness ? Confusion ? Depression ? Low levels of testosterone that can result in lower sex drive, energy, and strength ? Itching and sweating RISKS ARE GREATER WITH: ? History of drug misuse, substance use disorder, or overdose ? Mental health conditions (such as depression or anxiety) ? Sleep apnea ? Older age (65 years and older) ? Avoid alcohol while taking prescription opioids. Also, unless specifically advised by your health care provider, medications to avoid include: ? Benzodiazepines (such as Xanax or Valium) ? Muscle relaxants (such as Soma or Flexeril) ? Hypnotics (such as Ambien or Lunesta) ? Other prescription opioids KNOW YOUR OPTIONS Talk to your health care provider about ways to manage your pain that don?t involve prescription opioids. Some of these options may actually work better and have fewer risks and side effects. Options may include: ? Pain relievers such as acetaminophen, ibuprofen, and naproxen ? Some medication that are also used for depression or seizures ? Physical therapy and exercise ? Cognitive behavioral therapy, a psychological, goal-directed approach, in which patients learn how to modify physical, behavioral, and emotional triggers of pain and stress. IF YOU ARE PRESCRIBED OPIOIDS FOR PAIN: ? Never take opioids in greater amounts or more often than prescribed. ? Follow up with your primary health care provider. o Work together to create a plan on how to manage your pain. o Talk about ways to help manage your pain that don?t involve prescription opioids. o Talk about any and all concerns and side effects. ? Help prevent misuse and abuse o Never sell or share prescription opioids. o Never use another person?s prescription opioids. ? Store prescription opioids in a secure place and out of reach of others (this may include visitors, children, friends, and family). ? Safely dispose of unused prescription opioids: Find your community drug take-back program or your pharmacy mail-back program, or flush them down the toilet, following guidance from the Food and Drug Administration (www.fda.gov/Drugs/Re sourcesForYou). ? Visit www.cdc.gov/drugoverd ose to learn about the risks of op (more content not included)... Normal [facility] HEMATOLOGYOrdered By: SYSTEM SYSTEM on 03-22-2023 Basophils/100 WBC (Bld) 0.5 % Normal 0.0 - 2.0 % [facility] HemeAutoSS Basophils/Leukocytes Auto (Bld) [Pure # fraction] 0.0 E9/L Normal 0.0 - 0.2 E9/L [facility] HemeAutoSS Eosinophils/100 WBC (Bld) 1.5 % Normal 0.0 - 8.0 % [facility] HemeAutoSS Eosinophils/Leukocytes Auto (Bld) [Pure # fraction] 0.1 E9/L Normal 0.0 - 0.5 E9/L [facility] HemeAutoSS Lymphocytes/100 WBC (Bld) 34.9 % Normal 14.0 - 50.0 % [facility] HemeAutoSS Lymphocytes/Leukocytes Auto (Bld) [Pure # fraction] 3.4 E9/L Normal 1.0 - 4.0 E9/L [facility] HemeAutoSS Monocytes/100 WBC (Bld) 6.0 % Normal 4.0 - 14.0 % [facility] HemeAutoSS Monocytes/Leukocytes Auto (Bld) [Pure # fraction] 0.6 E9/L Normal 0.2 - 1.0 E9/L [facility] HemeAutoSS Neutrophils/100 WBC (Bld) 57.1 % Normal 36.0 - 75.0 % [facility] HemeAutoSS Neutrophils/Leukocytes Auto (Bld) [Pure # fraction] 5.6 E9/L Normal 2.0 - 7.5 E9/L [facility] HemeAutoSS HEMATOLOGYOrdered By: Barrington Maxwell on 03-22-2023 Erythrocyte distribution width (RBC) [Ratio] 12.5 % Normal 10.9 - 14.2 % [facility] HemeAutoSS Hematocrit (Bld) [Volume fraction] 37.7 % Normal 34.0 - 46.0 % [facility]eAutoSS Hemoglobin (Bld) [Mass/Vol] 13.1 g/dL Normal 12.0 - 16.0 gm/dL [facility] MCH (RBC) [Entitic mass] 31.9 pg Normal 27.0 - 34.0 pg [facility] MCHC (RBC) [Mass/Vol] 34.8 g/dL Normal 31.4 - 36.0 gm/dL [facility] MCV (RBC) [Entitic vol] 91.6 fL Normal 80.0 - 100.0 fL [facility] Platelet mean volume (Bld) [Entitic vol] 7.6 fL Normal 6.4 - 10.8 fL [facility] Platelets (Bld) [#/Vol] 306.0 E9/L Normal 150. 0 - 500.0 E9/L [facility] RBC (Bld) [#/Vol] 4.1 E12/L Low 4.3 - 5.9 E12/L [facility]eAuto[facility] WBC corrected for nucl RBC Auto (Bld) [#/Vol] 9.8 E9/L Normal 4.0 - 11.0 E9/L [facility] Hep Func Panelon 03-22-2023 Albumin [Mass/Vol] 4.2 g/dL Normal 3.3-5.0 [facility] Comment on above: Performed By: #### 2 267414, 6929692, 77461188, 7042405, 2721436, 6815724 #### [facility] [address] [place] [address] Albumin/Globulin (S) [Mass conc ratio] 1.4 Normal 1.1-2.2 [facility] Comment on above: Performed By: #### 2 607132, 6009401, 33183183, 8023741, 1053128, 6726522 #### [facility] [address] [place] [address] ALP [Catalytic activity/Vol] 54 Int._Unit/L Normal 21-98 [facility] Comment on above: Performed By: #### 2 184358, 5368591, 73465758, 3108307, 3979125, 1096947 #### [facility] [address] [place] [address] ALT No additional P-5'-P [Catalytic activity/Vol] 24 Int._Unit/L Normal 6-46 [facility] Comment on above: Performed By: #### 2 818203, 7214085, 98724772, 4926537, 8007755, 3416079 #### [facility] [address] [place] [address] AST [Catalytic activity/Vol] 18 Int._Unit/L Normal 5-43 [facility] Comment on above: Performed By: #### 2 534703, 5456931, 27765429, 2009508, 9365884, 6531645 #### [facility] [address] [place] [address] Bilirubin [Mass/Vol] 0.7 mg/dL Normal 0.0-1.1 [facility] Comment on above: Performed By: #### 2 659334, 9796533, 82555689, 4085809, 9796860, 4701226 #### [facility] [address] [place] [address] Bilirubin.direct [Mass/Vol] 0.1 mg/dL Normal 0.1-0.4 [facility] Comment on above: Performed By: #### 2 707927, 1683624, 75610238, 9481637, 1262519, 1429007 #### [facility] [address] [place] [address] Bilirubin.indirect [Mass or moles/Vol] 0.6 mg/dL Normal 0.1-0.9 [facility] Comment on above: Performed By: #### 2 123538, 5236932, 19907219, 0120108, 5124733, 6781510 #### [facility] [address] [place] [address] Globulin (S) [Mass/Vol] 3.1 g/dL Normal 1.4-4.0 F [facility] Comment on above: Performed By: #### 2 512926, 7932195, 72569897, 4355135, 8713708, 5094846 #### [facility] [address] [place] [address] Protein [Mass/Vol] 7.3 g/dL Normal 6.0-7.8 [facility] Comment on above: Performed By: #### 2 168368, 7038138, 02365624, 0253404, 6100526, 1818071 #### [facility] [address] [place] [address] Lipase Levelon 03-22-2023 Lipase [Catalytic activity/Vol] 28 U/L Normal 13-58 [facility] Comment on above: Performed By: #### 2 068674, 8332747, 45198899, 1010091, 8894361, 3632091 #### [facility] [address] [place] [address] SEROLOGYOrdered By: Lucina Shaikh on 03-22-2023 HCG.beta subunit (U) [Moles/Vol] Negative Normal [facility] Man Sero U BetaHcg Qualon 03-22-2023 HCG.beta subunit (U) [Moles/Vol] Negative Normal [facility] Comment on above: Performed By: #### 2 228334, 2261575, 91374382, 2317658, 1033664, 9129479 #### [facility] [address] [place] [address] UA With Cult Reflexon 2022 Bacteria LM Ql (Urine sed) TRACE Normal Trace [facility] Comment on above: Performed By: #### 2 199346, 2508220, 79744934, 2471320, 7973906, 0705782 #### [facility] [address] [place] [address] Bilirubin Ql (U) Negative Normal Negative [facility] Comment on above: Performed By: #### 2 794773, 1614760, 74170262, 3940204, 1032958, 2782164 #### [facility] [address] [place] [address] Clarity (U) SL CLOUDY Abnormal Clear [facility] Comment on above: Performed By: #### 2 669072, 9923829, 29068781, 8993533, 1465947, 7760727 #### [facility] [address] [place] [address] Color (U) YELLOW Normal Yellow [facility] Comment on above: Performed By: #### 2 262258, 5772105, 50385742, 6633085, 7300320, 6640307 #### [facility] [address] [place] [address] Crystals LM Ql (Urine sed) Present Normal [facility] Comment on above: Performed By: #### 2 376770, 0154769, 96365800, 9258109, 4071784, 8173741 #### [facility] [address] [place] [address] Epithelial cells.squamous LM.HPF (Urine sed) [#/Area] 0-2 Normal 0-2 [facility] Comment on above: Performed By: #### 2 534773, 2141898, 84817302, 3470702, 9759844, 8185519 #### [facility] [address] [place] [address] Glucose Test strip (U) [Mass/Vol] Negative Normal Negative [facility] Comment on above: Performed By: #### 2 019539, 6743563, 90665573, 9397142, 5660427, 0313961 #### [facility] [address] [place] [address] Hemoglobin Ql (U) 2+ Abnormal Negative [facility] Comment on above: Performed By: #### 2 646658, 8637390, 27599528, 2710032, 6808333, 9900997 #### [facility] [address] [place] [address] Ketones (U) [Mass/Vol] 1+ Abnormal Negative [facility] Comment on above: Performed By: #### 2 725753, 9511934, 18778041, 7702304, 1321819, 2398075 #### [facility] [address] [place] [address] Gisela.plasma/Gisela. RBC (Bld) [Mass ratio] 0-3 Normal 0-3 [facility] Comment on above: Performed By: #### 2 927575, 5163418, 92687867, 6870060, 4675980, 3441028 #### [facility] [address] [place] [address] Mucus Ql (Urine sed) TRACE Normal [facility] Comment on above: Performed By: #### 2 963356, 8986901, 80528929, 9333930, 3076849, 6390037 #### [facility] [address] [place] [address] Nitrite Ql (U) Negative Normal Negative [facility] Comment on above: Performed By: #### 2 718420, 6741896, 69160727, 3044826, 1551300, 5393544 #### [facility] [address] [place] [address] pH (U) 5.5 [pH] Invalid Interpretation Code 5.0-9.0 [facility] Comment on above: Performed By: #### 2 445768, 2617485, 30916854, 2261366, 0285026, 3682943 #### [facility] [address] [place] [address] Protein (U) [Mass/Vol] Negative Normal Negative [facility] Comment on above: Performed By: #### 2 130299, 7454006, 99757144, 5397770, 7414028, 4541415 #### [facility] [address] [place] [address] Specific gravity (U) [Rel density] >=1.030 Invalid Interpretation Code 1.005-1.030 [facility] Comment on above: Performed By: #### 2 481235, 8687348, 44909733, 7448041, 3113782, 6422057 #### [facility] [address] [place] [address] Type of Urine collection method Clean Catch Normal [facility] Comment on above: Performed By: #### 2 845163, 1470802, 34279063, 5174629, 7239129, 1426369 #### [facility] [address] [place] [address] Urobilinogen Qn (U) 0.2 {Aly'U}/dL Normal 0.0-1.0 [facility] Comment on above: Performed By: #### 2 660392, 3376732, 81027585, 5677923, 4475725, 5668157 #### [facility] [address] [place], [place] [address] WBC Auto Ql (U) 2+ Abnormal Negative [facility] Comment on above: Performed By: #### 2 542255, 1546818, 62592786, 6036036, 7900995, 4380545 #### [facility] [address] [place] [address] WBC LM.HPF (Urine sed) [#/Area] 16-25 Abnormal 0-5 [facility] Comment on above: Performed By: #### 2 030564, 8074473, 10153615, 9389101, 9637642, 3851458 #### [facility] [address] [place] [address] URINALYSISOrdered By: Elizabeth Shaikh on 03-22-2023 Bacteria LM Ql (Urine sed) Trace /HPF Normal Trace/HPF [facility] UA Auto SS Bilirubin Ql (U) Negative (03/22/23 8:17 PM) Normal Negative [facility] UA Auto SS Clarity (U) Slightly Cloudy *ABN* (03/22/23 8:17 PM) Invalid Interpretation Code Clear [facility] UA Auto SS Color (U) Yellow (03/22/23 8:17 PM) Normal Yellow [facility] UA Auto SS Crystals LM Ql (Urine sed) Present (03/22/23 8:17 PM) Normal [facility] UA Auto SS Epithelial cells.squamous LM.HPF (Urine sed) [#/Area] 0-2 /HPF Normal 0-2/HPF [facility] UA Aut o SS Glucose Test strip (U) [Mass/Vol] Negative (03/22/23 8:17 PM) Normal Negative [facility] UA Auto SS Hemoglobin Ql (U) 2+ *ABN* (03/22/23 8:17 PM) Invalid Interpretation Code Negative [facility] UA Auto SS Ketones (U) [Mass/Vol] 1+ *ABN* (03/22/23 8:17 PM) Invalid Interpretation Code Negative [facility] UA Auto SS Gisela.plasma/Gisela. RBC (Bld) [Mass ratio] 0-3 /HPF Normal 0-3/HPF [facility] A uto SS Mucus Ql (Urine sed) Trace (03/22/23 8:17 PM) Normal [facility] UA Auto SS Nitrite Ql (U) Negative (03/22/23 8:17 PM) Normal Negative [facility] UA Auto SS pH (U) 5.5 *NA* (03/22/23 8:17 PM) Invalid Interpretation Code 5.0 - 9.0 [facility] UA Auto SS Protein (U) [Mass/Vol] Negative (03/22/23 8:17 PM) Normal Negative [facility] UA Auto SS Specific gravity (U) [Rel density] >=1.030 *NA* (03/22/23 8:17 PM) Invalid Interpretation Code 1.005 - 1.030 [facility] UA Auto SS UA Spec Desc Clean Catch (03/22/23 8:17 PM) Normal [facility] UA Auto SS Urobilinogen Qn (U) 0.5339703 {Aly'U}/dL Normal 0.0 - 1.0 EU/dL [facility] UA Auto SS WBC Auto Ql (U) 2+ *ABN* (03/22/23 8:17 PM) Invalid Interpretation Code Negative [facility] UA Auto SS WBC LM.HPF (Urine sed) [#/Area] 16-25 /HPF Invalid Interpretation Code 0-5/HPF [facility] UA Auto SS eGFRon 03-22-2023 GFR/1.73 sq M.predicted among non-blacks MDRD (S/P/Bld) [Vol rate/Area] 133 mL/min/1.73 m2 Normal >=59 [facility] Comment on above: Order Comment: Order added by Discern Expert. Result Comment: Professional Nurse vinh kidney disease could be indicated at eGFR's of less than 60 mL/min/1.73m2. Kidney failure is indicated at less than 15 mL/min/1.73m2. Performed By: #### 2 244754, 3792302, 33200708, 8393457, 0091390, 3464392 #### [facility] [address] [place] [address] Alanine aminotransferase [En zymatic activity/volume] in Serum or PlasmaOrdered By: Zurdo Ortega on 02-28-2023 ALT [Catalytic activity/Vol] 21 U/L [facility] HIV 1 and HIV-2 antibody ass ay with HIV-1 p24 antigen detectionOrdered By: Zurdo Ortega on 02-28-2023 HIV 1+2 Ab+HIV1 p24 Ag IA Ql Non-Reactive Non Reactive [facility] Comment on above: HIV NegativeHIV-1/HI V-2 antibodies and HIV-1 p24 antigen were NOTdetected. There is no laboratory evidence of HIV infection. Hepatitis B virus surface Ag [Presence] in Serum or Plasma by ImmunoassayOrdered By: Zurdo Ortega on 02-28-2023 HBV surface Ag IA Ql Negative Negative [facility] Comment on above: Performed at: [address] [id number] Director: Alexis Ashton PhD, Phone: [phone] Hepatitis C virus IgG Ab [Pr esence] in Serum or Plasma by ImmunoassayOrdered By: Zurdo Ortega on 02-28-2023 HCV IgG IA Ql Non-Reactive Non Reactive [facility] No Panel InformationOrdered By: Zurdo Ortega on 02-28-2023 Hepatitis C Interpretation See comment . [facility] Comment on above: Not infected with HC V unless early or acute infection issuspected (which may be delayed in an immunocompromisedindividual), or other evidence exists to indicate HCVinfection. Serum hepatitis B virus surf nikolas antibody detectionOrdered By: Zurdo Ortega on 02-28-2023 HBV surface Ab Ql (S) Reactive . [facility] Comment on above: Non Reactive: Incons istent with immunity, less than 10 mIU/mL Reactive: Consistent with immunity, greater than 9.9 mIU/mL PAP ACOG PANEL 2: 21 to 30on 12-17-2022 . . Normal [facility] Comment on above: Performed By: #### [id number] #### [facility] [address] [address] [address] Regine Fortune Age Gdln ACOG Testing - Normal [facility] Comment on above: Performed By: #### [id number] #### [facility] [address] [address] [address] Regine Fortune DIAGNOSIS: Comment [facility] Comment on above: Result Comment: NEGA TIVE FOR INTRAEPITHELIAL LESION OR MALIGNANCY. Performed By: #### [id number] #### [facility] [address] [place] [address] Dr. Regine Fortune Methodology: Comment [facility] Comment on above: Result Comment: This liquid based ThinPrep(R) pap test was screened with the use of an image guided system. Performed By: #### [id number] #### [facility] [address] [address] [address] Regine Fortune Note: Comment [facility] Comment on above: Result Comment: The Pap smear is a screening test designed to aid in the detection of premalignant and malignant conditions of the uterine cervix. It is not a diagnostic procedure and should not be used as the sole means of detecting cervical cancer. Both false-positive and false-negative reports do occur. . Performed By: #### [id number] #### [facility] [address] [address] [address] Regine Fortune Performed by: Comment Normal [facility] Comment on above: Result Comment: Amna Hernandes Online Advertising Manager (ASCP) Performed By: #### [id number] #### [facility] [address] [address] [address] Regine Fortune Reflex Criteria: Comment Normal [facility] Comment on above: Result Comment: The HPV DNA reflex criteria were not met with this specimen result therefore, no HPV testing was performed. . Performed By: #### [id number] #### [facility] [address] [address] [address] Regine Fortune Specimen adequacy: Comment Normal [facility] Comment on above: Result Comment: Sati sfactory for evaluation. Endocervical and/or squamous metaplastic cells (endocervical component) are present. Areas of partially obscuring inflammatory exudate are present. Performed By: #### [id number] #### [facility] [address] [place], [place] [address] Dr. Regine Fortune Thyrotropin [Units/volume] i n Serum or PlasmaOrdered By: Brain Way on 12-10-2022 TSH Qn 2.86 m[IU]/L 0.45-5.33 [facility] Thyroxine (T4) free [Mass/vo lume] in Serum or PlasmaOrdered By: Brain Way on 12-10-2022 Free T4 [Mass/Vol] 0.94 ng/dL 0.61-1.12 [facility] Albumin [Mass/volume] in Ser um or PlasmaOrdered By: Ofelia Hester on 10-16-2022 Albumin [Mass/Vol] 4.1 g/dL 3.2-5.5 [facility] Alkaline phosphatase [Enzyma tic activity/volume] in Serum or PlasmaOrdered By: Ofelia Hester on 10-16-2022 ALP [Catalytic activity/Vol] 56 U/L 32-92 [facility] Amylaseon 10-16-2022 Amylase 43 U/L Normal 28-100 U/L [facility] Other Amylase [Enzymatic activity/ volume] in Serum or PlasmaOrdered By: Ofelia Hester on 10-16-2022 Amylase [Catalytic activity/Vol] 43 U/L 28-100 [facility] Aspartate aminotransferase [ Enzymatic activity/volume] in Serum or PlasmaOrdered By: Ofelia Hester on 10-16-2022 AST [Catalytic activity/Vol] 16 U/L 10-42 [facility] Bilirubin.total [Mass/volume ] in Serum or PlasmaOrdered By: Ofelia Hester on 10-16-2022 Bilirubin [Mass/Vol] 0.6 mg/dL 0.3-1.2 [facility] Calcium [Mass/volume] in Ser um or PlasmaOrdered By: Ofelia Hester on 10-16-2022 Calcium [Mass/Vol] 9.3 mg/dL 8.2-10.2 [facility] Carbon dioxide, total [Moles /volume] in Serum or PlasmaOrdered By: Ofelia Hester on 10-16-2022 CO2 [Moles/Vol] 22.1 mmol/L 22.0-30.0 [facility] Chloride [Moles/volume] in S ghada or PlasmaOrdered By: Ofelia Hester on 10-16-2022 Chloride [Moles/Vol] 105 mmol/L 95-114 [facility] Comprehensive Metabolic Pane samy 10-16-2022 Albumin [Mass/Vol] 4.946988 g/dL Normal 3.2-5.5 g/dL [facility] Other ALT [Catalytic activity/Vol] 17 U/L Normal 10-60 U/L [facility] Other Bilirubin [Mass/Vol] 0.8957614 mg/dL Normal 0.3- 1.2 mg/dL [facility] Other Calcium [Mass/Vol] 9.2189673 mg/dL Normal 8.2-10 .2 mg/dL [facility] Other CO2 [Moles/Vol] 22.91508091 mmol/L Normal 22.0-3 0.0 mmol/L [facility] Other Creatinine [Mass/Vol] 0.18609077 mg/dL Normal 0. 44-1.03 mg/dL [facility] Other Potassium [Moles/Vol] 4.33708032 mmol/L Normal 3 .5-5.1 mmol/L [facility] Other Protein [Mass/Vol] 6.470544 g/dL Normal 6.1-7.9 g/dL [facility] Other Comprehensive Metabolic Panel > 60 [facility] Other Comprehensive Metabolic Panel 2.5 g/dL [facility] Other Creatinine and Glomerular fi ltration rate.predicted panel (S/P/Bld)Ordered By: Ofelia Hester on 10-16-2022 Creatinine [Mass/Vol] 0.55 mg/dL 0.44-1.03 [facility] Estimated glomerular filtrat ion rate (GFR) non- AmericanOrdered By: Ofelia Hester on 10-16-2022 GFR/1.73 sq M.predicted among non-blacks MDRD (S/P/Bld) [Vol rate/Area] > 60 mL/Min [facility] Globulin Calc (S) [Mass/Vol] Ordered By: Ofelia Hester on 10-16-2022 Globulin (S) [Mass/Vol] 2.5 g/dL [facility] Glucose [Mass/volume] in Ser um or PlasmaOrdered By: Ofelia Hester on 10-16-2022 Glucose [Mass/Vol] 86 mg/dL 70-100 [facility] Comment on above: ADA recommended refe rence rangeRandom Glucose Reference Range is dependent on time and content of last meal. Glucose of more than 200 mg/dL in a nonstressed, ambulatory subject supports the diagnosis of Diabetes Mellitus. Laboratory - Chemistry and C hemistry - challengeOrdered By: Ofelia Hester on 10-16-2022 Lipase [Catalytic activity/Vol] 35.0 U/L 22-51 [facility] Lipaseon 10-16-2022 Lipase [Catalytic activity/Vol] 35.44897 U/L Normal 22-51 U/L [facility] Other No Panel InformationOrdered By: Ofelia Hester on 10-16-2022 Estimated GFR () > 60 mL/Min [facility] Comment on above: GFR estimated refere nce range: According to KDOQI guidelines, <60 ml/min/1.73m2 is sufficient to diagnose a patient with chronic kidney disease. Pharmacy Creatinine Clearance (Chem N/A [facility] Potassium [Moles/volume] in Serum or PlasmaOrdered By: Ofelia Hester on 10-16-2022 Potassium [Moles/Vol] 4.3 mmol/L 3.5-5.1 [facility] Protein [Mass/volume] in Ser um or PlasmaOrdered By: Ofelia Hester on 10-16-2022 Protein [Mass/Vol] 6.6 g/dL 6.1-7.9 [facility] Serum or plasma alanine galaviz otransferase measurement without P-5'-P (enzymatic activiOrdered By: Ofelia Hester on 10-16-2022 ALT No additional P-5'-P [Catalytic activity/Vol] 17 U/L 10-60 [facility] Serum or plasma albumin/glob ulin mass ratioOrdered By: Ofelia Hester on 10-16-2022 Albumin/Globulin [Mass ratio] 1.6 {ratio} [facility] Serum or plasma anion gap de terminationOrdered By: Ofelia Hester on 10-16-2022 Anion gap [Moles/Vol] 13.2 mmol/L 6.0-15.0 [facility] Sodium [Moles/volume] in Ser um or PlasmaOrdered By: Ofelia Hester on 10-16-2022 Sodium [Moles/Vol] 136 mmol/L 136-146 [facility] Urea nitrogen [Mass/volume] in Serum or PlasmaOrdered By: Ofelia Hester on 10-16-2022 Urea nitrogen [Mass/Vol] 11 mg/dL 9-23 [facility] T4 FREE/FREE THYROXon 2021 Free T4 [Mass/Vol] 1.3 ng/dL 0.9 - 1.7 ng/dL [facility] TSH BLDon 07-14-2022 TSH Qn 2.480 m[IU]/L 0.270 - 4.200 mIU/L [facility] VITAMIN B12 BLOODon 07-14-20 Cobalamin (Vitamin B12) [Mass/Vol] 267 pg/mL 232 - 1,245 pg/mL [facility] Quick Fluon 06-04-2022 FLUAV Ab CF (S) [Titer] Negative N [email or web address] Other FLUBV Ab CF (S) [Titer] Negative N [facility] [employer] Other Quick Strepon 06-04-2022 S. pyogenes Org specific cx Ql (Throat) Negative [facility] [employer] Other Quick Strep [facility] [employer] Other SARS-CoV-2 (COVID-19) RNA NA A+probe Ql (Resp)on 06-04-2022 SARS-CoV-2 (COVID-19) RNA LAUREN+probe Ql (Unsp spec) Negative [employer] Other TSH DL <= 0.005 mIU/L QnOrde red By: Darwin Jones on 04-14-2022 TSH Qn 6.39 m[IU]/L 0.45-5.33 [facility] Thyroxine (T4) free [Mass/vo lume] in Serum or PlasmaOrdered By: Darwin Jones on 04-14-2022 Free T4 [Mass/Vol] 0.82 ng/dL 0.61-1.12 [facility] Triiodothyronine (T3) Free [ Mass/volume] in Serum or PlasmaOrdered By: Darwin Jones on 04-14-2022 Free T3 [Mass/Vol] 4.08 pg/mL 2.50-3.90 [facility] Serum or plasma calcium luis urement (mass/volume)Ordered By: Saad Valera on 04-06-2022 Calcium [Mass/Vol] 9.4 mg/dL 8.2-10.2 [facility] Serum or plasma intact parat hyroid hormone measurement (mass/volume)Ordered By: Saad Valera on 04-06-2022 Parathyrin.intact [Mass/Vol] 54.8 pg/mL [facility] CHEMISTRYOrdered By: Lab ROP User on 02-18-2022 Glucose [Mass/Vol] 106 mg/dL High 55 - 99 mg/dL [facility] POC Subsection Comment on above: Result Comment: Aurelia breana Meter POC Device SN [id number] Invalid Interpretation Code [facility] POC Subsection POC User ID [id number] Invalid Interpretation Code [facility] POC Subsection POC Username OBINNA EPPERSON Invalid Interpretation Code [facility] POC Subsection Serum or plasma thyroglobuli n antibody assay (units/volume)Ordered By: Darwin Jones on 02-13-2022 Thyroglobulin Ab Qn 971.2 [IU]/mL 0.0-0.9 [facility] Comment on above: Thyroglobulin Antibo dy measured by [email or web address] Methodology Performed at: - [address] [id number] Purchasing Internship: Alexis Ashton PhD, Phone: [phone] Serum or plasma thyroperoxid ase antibody assay (units/volume)Ordered By: Darwin Jones on 02-13-2022 TPO Ab Qn 327 [IU]/mL 0-34 [facility] Thyroxine (T4) free [Mass/vo lume] in Serum or PlasmaOrdered By: Darwin Jones on 02-13-2022 Free T4 [Mass/Vol] 0.66 ng/dL 0.61-1.12 [facility] Triiodothyronine (T3) Free [ Mass/volume] in Serum or PlasmaOrdered By: Darwin Jones on 02-13-2022 Free T3 [Mass/Vol] 4.04 pg/mL 2.50-3.90 [facility] Albumin [Mass/volume] in Ser um or PlasmaOrdered By: Addi Ortega on 02-10-2022 Albumin [Mass/Vol] 4.1 g/dL 3.2-5.5 [facility] Basophils Auto (Bld) [#/Vol] Ordered By: Addi Ortega on 02-10-2022 Basophils (Bld) [#/Vol] 0.0 10*3/uL 0.0-0.2 [facility] Basophils/100 WBC Auto (Bld) Ordered By: Addi Ortega on 02-10-2022 Basophils/100 WBC (Bld) 0.4 % . [facility] Blood hemoglobin measurement (mass/volume)Ordered By: Addi Ortega on 02-10-2022 Hemoglobin (Bld) [Mass/Vol] 14.1 g/dL 11.8-15.4 [facility] Blood leukocytes automated c ount (number/volume)Ordered By: Addi rOtega on 02-10-2022 WBC (Bld) [#/Vol] 7.3 10*3/uL 4.5-11.0 [facility] Cholesterol [Mass/volume] in Serum or PlasmaOrdered By: Addi Ortega on 02-10-2022 Cholesterol [Mass/Vol] 195 mg/dL 140-200 [facility] Comment on above: Chol less than 200 m g/dl low risk Chol 201-239 mg/dl borderline risk Chol 240 mg/dl and greater high risk Cholesterol in LDL Calc [Mas s/Vol]Ordered By: Addi Ortega on 02-10-2022 Cholesterol in LDL [Mass/Vol] 113 mg/dL 0-100 [facility] Comment on above: LDL ATP III CLASSIFI CATION LDL less than 100 mg/dL Optimal LDL 100-129 mg/dL Near or above optimal LDL 130-159 mg/dL Borderline high LDL 160-189 mg/dL High LDL greater than 189 mg/dL Very high Cholesterol in VLDL Calc [Ma ss/Vol]Ordered By: Addi Ortega on 02-10-2022 Cholesterol in VLDL [Mass/Vol] 26 mg/dL [facility] Creatinine and Glomerular fi ltration rate.predicted panel (S/P/Bld)Ordered By: Addi Ortega on 02-10-2022 Creatinine [Mass/Vol] 0.71 mg/dL 0.44-1.03 [facility] Eosinophils Auto (Bld) [#/Vo l]Ordered By: Addi Ortega on 02-10-2022 Eosinophils (Bld) [#/Vol] 0.1 10*3/uL 0.0-0.45 [facility] Eosinophils/100 WBC Auto (Bl d)Ordered By: Addi Ortega on 02-10-2022 Eosinophils/100 WBC (Bld) 1.5 % . [facility] Erythrocyte distribution wid th Auto (RBC) [Ratio]Ordered By: Addi Ortega on 02-10-2022 Erythrocyte distribution width (RBC) [Ratio] 14.0 % 11.9-15.3 [facility] Estimated glomerular filtrat ion rate (GFR) non- AmericanOrdered By: Addi Ortega on 02-10-2022 GFR/1.73 sq M.predicted among non-blacks MDRD (S/P/Bld) [Vol rate/Area] > 60 mL/Min [facility] Globulin Calc (S) [Mass/Vol] Ordered By: Addi Ortega on 02-10-2022 Globulin (S) [Mass/Vol] 2.8 g/dL [facility] Hematocrit Auto (Bld) [Volum e fraction]Ordered By: Addi Ortega on 02-10-2022 Hematocrit (Bld) [Volume fraction] 40.3 % 34.0-46.4 [facility] Laboratory - Chemistry and C hemistry - challengeOrdered By: Addi Ortega on 02-10-2022 Glucose [Mass/Vol] 90 mg/dL 70-100 [facility] Laboratory - Hematology and Cell countsOrdered By: Addi Ortega on 02-10-2022 Nucleated RBC/100 WBC (Bld) [Ratio] 0.1 % 0-0.5 [facility] Lymphocytes Auto (Bld) [#/Vo l]Ordered By: Addi Ortega on 02-10-2022 Lymphocytes (Bld) [#/Vol] 3.3 10*3/uL 1.00-4.8 [facility] Lymphocytes/100 WBC Auto (Bl d)Ordered By: Addi Ortega on 02-10-2022 Lymphocytes/100 WBC (Bld) 45.2 % . [facility] MCH Auto (RBC) [Entitic mass ]Ordered By: Addi Ortega on 02-10-2022 MCH (RBC) [Entitic mass] 33.0 pg 24.7-34.3 [facility] MCHC Auto (RBC) [Mass/Vol]Or dered By: Addi Ortega on 02-10-2022 MCHC (RBC) [Mass/Vol] 34.9 g/dL 32.0-35.0 Fir [facility] MCV Auto (RBC) [Entitic vol] Ordered By: Addi Ortega on 02-10-2022 MCV (RBC) [Entitic vol] 94.6 fL 80-100 [facility] Monocyte %Ordered By: Addi Ortega on 02-10-2022 Monocyte % 134 mg/dL 35-149 [facility] Comment on above: TRIG ATP III CLASSIF ICATION TRIG less than 150 mg/dL Normal TRIG 150-199 mg/dL Borderline high TRIG 200-500 mg/dL High TRIG greater than 500 mg/dL Very high Standard traceable to the Center for Disease Conrtrol and Prevention (CDC) test method. Monocytes Auto (Bld) [#/Vol] Ordered By: Addi Ortega on 02-10-2022 Monocytes (Bld) [#/Vol] 0.5 10*3/uL 0.0-0.8 [facility] Monocytes/100 WBC Auto (Bld) Ordered By: Addi Ortega on 02-10-2022 Monocytes/100 WBC (Bld) 6.3 % . [facility] Neutrophils Auto (Bld) [#/Vo l]Ordered By: Addi Ortega on 02-10-2022 Neutrophils (Bld) [#/Vol] 3.4 10*3/uL 1.8-7.7 [facility] Neutrophils/100 WBC Auto (Bl d)Ordered By: Addi Ortega on 02-10-2022 Neutrophils/100 WBC (Bld) 46.6 % . [facility] No Panel InformationOrdered By: Addi Ortega on 02-10-2022 Estimated GFR () > 60 mL/Min [facility] Comment on above: GFR estimated refere nce range: According to KDOQI guidelines, <60 ml/min/1.73m2 is sufficient to diagnose a patient with chronic kidney disease. Nicotine Metabolite Negative Cutoff=25 [facility] Comment on above: Performed at: [address] [id number] Purchasing Internship: Catherine Mendoza MD, Phone: [phone] Pharmacy Creatinine Clearance (Chem N/A [facility] Platelet mean volume Auto (B ld) [Entitic vol]Ordered By: Addi Ortega on 02-10-2022 Platelet mean volume (Bld) [Entitic vol] 8.4 fL 6.3-10.7 [facility] Platelets Auto (Bld) [#/Vol] Ordered By: Addi Ortega on 02-10-2022 Platelets (Bld) [#/Vol] 321 10*3/uL 150-450 [facility] Protein [Mass/volume] in Ser um or PlasmaOrdered By: Addi Ortega on 02-10-2022 Protein [Mass/Vol] 6.9 g/dL 6.1-7.9 [facility] RBC Auto (Bld) [#/Vol]Ordere d By: Addi Ortega on 02-10-2022 RBC (Bld) [#/Vol] 4.26 10*6/uL 3.60-5.00 [facility] Serum or plasma alanine galaviz otransferase measurement without P-5'-P (enzymatic activiOrdered By: Addi Ortega on 02-10-2022 ALT No additional P-5'-P [Catalytic activity/Vol] 26 U/L 10-60 [facility] Serum or plasma albumin/glob ulin mass ratioOrdered By: Addi Ortega on 02-10-2022 Albumin/Globulin [Mass ratio] 1.5 {ratio} [facility] Serum or plasma alkaline hosea sphatase measurement (enzymatic activity/volume)Ordered By: Addi Ortega on 02-10-2022 ALP [Catalytic activity/Vol] 47 U/L 32-92 [facility] Serum or plasma aspartate am inotransferase measurement (enzymatic activity/volume)Ordered By: Addi Ortega on 02-10-2022 AST [Catalytic activity/Vol] 18 U/L 10-42 [facility] Serum or plasma calcium luis urement (mass/volume)Ordered By: Addi Ortega on 02-10-2022 Calcium [Mass/Vol] 9.3 mg/dL 8.2-10.2 [facility] Serum or plasma chloride radha surement (moles/volume)Ordered By: Addi Ortega on 02-10-2022 Chloride [Moles/Vol] 99 mmol/L 95-114 [facility] Serum or plasma high density lipoprotein (HDL) cholesterol measurementOrdered By: Addi Ortega on 02-10-2022 Cholesterol in HDL [Mass/Vol] 55 mg/dL 35-85 [facility] Comment on above: HDL CHOL ATP-III CLA SSIFICATION Cardiovascular Risk HDL > or equal to 60 mg/dL LOW HDL < 40 mg/dL HIGH Serum or plasma potassium me asurement (moles/volume)Ordered By: Addi Ortega on 02-10-2022 Potassium [Moles/Vol] 4.1 mmol/L 3.5-5.1 [facility] Serum or plasma sodium measu rement (moles/volume)Ordered By: Addi Ortega on 02-10-2022 Sodium [Moles/Vol] 135 mmol/L 136-146 [facility] Serum or plasma total biliru bin measurement (mass/volume)Ordered By: Addi Ortega on 02-10-2022 Bilirubin [Mass/Vol] 0.7 mg/dL 0.3-1.2 [facility] Serum or plasma total carbon dioxide measurement (moles/volume)Ordered By: Addi Ortega on 02-10-2022 CO2 [Moles/Vol] 23.3 mmol/L 22.0-30.0 [facility] Serum or plasma total choles terol/high density lipoprotein (HDL) cholesterol mass ratOrdered By: Addi Ortega on 02-10-2022 Cholesterol.total/Alexandra sterol in HDL [Mass ratio] 3.5 {ratio} <5.0 [facility] Serum or plasma urea nitroge n measurement (mass/volume)Ordered By: Addi Ortega on 02-10-2022 Urea nitrogen [Mass/Vol] 17 mg/dL 9-23 [facility] TSH DL <= 0.005 mIU/L QnOrde red By: Addi Ortega on 02-10-2022 TSH Qn 57.67 m[IU]/L 0.45-5.33 [facility] No Panel Informationon 09-03 6 {mm/hr} Normal 0-34 [facility] Work Phone: Office Visit (Cardiology)on 09-03-2021 Follow-up visit Diagnoses/Problems Assessed Chest pain, atypical (786.59) (R07.89) Class 1 obesity with body mass index (BMI) of 32.0 to 32.9 in adult (278.00,V85.32) (E66.9,Z68.32) Never a smoker Orders Chest pain, atypical IO EKG Electrocardiogram- 12 Lead; Status:Complete; Done: 03Sep2021 Sedimentation Rate, Erythrocyte; Status:Active - Retrospective Authorization; Requested for:03Sep2021; SocHx: Never a smoker Tobacco Use Screening; Status:Complete; Done: 03Sep2021 Patient Instructions By signing my name below, Sheila Patel LPN, Scribe, attest that this documentation has been prepared under the direction and in the presence of Dr. Herson Coronado MD. All medical record entries made by the Candace were at my direction and personally dictated by me. I have reviewed the chart and agree that the record accurately reflects my personal performance of the history, physical exam, discussion and plan. Please bring all medicines, vitamins, and herbal supplements with you when you come to the office. Prescriptions will not be filled unless you are compliant with your follow up appointments or have a follow up appointment scheduled as per instruction of your physician. Refills should be requested at the time of your visit. Follow-up as needed only Chief Complaint TAWNYA HERRING is being seen for follow-up of a hospitalization for. History of Present Illness Patient is self-referred for evaluation and/or management of chest pain. She went to the emergency room several weeks after having a term delivery that was otherwise uncomplicated. 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 She underwent CT angiogram which ruled out pulmonary embolism but she was advised that she had a pericardial effusion. They also suggested she might have pericarditis and because of this, on her own, she started taking ibuprofen with significant improvement in her symptomatology. Today we are not in receipt of the CAT scan. Advised her that more than likely she has a normal amount of pericardial fluid that was deemed an effusion. This is a common phenomenon and explained to her in detail. I proposed to her that more than likely the pericardial fluid was not a true effusion and consequently I am doubtful that any intervention is necessary. We discussed, though, her chest pain. I proposed to her could be postviral and she offers, thereafter, that she had a viral illness about 6 weeks before this event. I advised her this is classic timeframe for pericarditis following a viral illness. Around that time she was tested 3 times for COVID-19 all of which were negative including 2 PCR test. In light of all the above I suggested she continue ibuprofen. I promised her I would review her CAT scan if there were abnormalities necessitating action and or intervention I would contact her and we did reconfirm her and her reconvene. Otherwise I advised her that no other testing or intervention appears necessary. Current Meds Medication NameInstruction CeleXA 20 MG Oral TabletTAKE 1 TABLET DAILY. Patient did not bring medications list or bottles. Updated verbally with patient. Allergies Medication No Known Drug Allergies Recorded By: Tawnya Alvarez; 09/03/2021 9:54:00 AM Social History Problems Daily caffeine consumption, 1 serving a day Never a smoker No alcohol use No illicit drug use Review of Systems Constitutional: not feeling tired. Eyes: no eyesight problems. ENT: no hearing loss and no nosebleeds. Cardiovascular: no intermittent leg claudication and as noted in HPI. Respiratory: no chronic cough and no shortness of breath. Gastrointestinal: no change in bowel habits and no blood in stools. Genitourinary: no urinary frequency. Skin: no skin rashes. Neurological: no seizures and no frequent falls. Psychiatric: no depression and not suicidal. All other systems have been reviewed and are negative for complaint. Vitals Vital Signs Recorded: 03Sep2021 10:02AMRecorded: 03Sep2021 09:55AM [id number], LUE, [id number], RUE, Sitting Cukagzwdg63, LUE, Tdzghtj11, RUE, Sitting Heart Rate72, Apical Height5 ft 7 in Rnovth093 lb 9.6 oz BMI Ngalrwxatm40.36 kg/m2 BSA Calculated2.05 Tobacco Useb) No EKG done in office today. Physical Exam Constitutional: alert and in no acute distress. Eyes: no erythema, swelling or discharge from the eye . Neck: neck is supple, symmetric, trachea midline, no masses and no thyromegaly . Pulmonary: no increased work of breathing or signs of respiratory distress and lungs clear to auscultation. Cardiovascular: carotid pulses 2+ bilaterally with no bruit , JVP was normal, no thrills , regular rhythm, normal S1 and S2, no murmurs , pedal pulses 2+ bilaterally and no edema . Abdomen: abdomen non-tender, no masses and no hepatomegaly . Skin: skin warm and dry, normal skin turgor . Psychiatric judgment and insight is normal and oriented to person, place and time . Sign (more content not included)... Normal [employer] Tobacco Screening.on 022 Tobacco use status CPHS b) No M [facility] 600 DO Work Phone: Vital Signs Date Time Vital Sign Value Performing Clinician Facility 03-18-2024 11:50-0400 Diastolic blood pressure 83 mm[Hg] [place] [facility] 03-18-2024 11:50-0400 Heart rate 75 /min [place] [facility] 03-18-2024 11:50-0400 Mean blood pressure 97 mm[Hg] Toan Steine [facility] 03-18-2024 11:50-0400 Respiratory rate 16 /min Toan Steine [facility] 03-18-2024 11:50-0400 SaO2% (BldA) [Mass fraction] 98 % [place] [facility] 03-18-2024 11:50-0400 Systolic blood pressure 126 mm[Hg] [place] [facility] 03-18-2024 09:46-0400 Hourly Rounding [place] [facility] 03-18-2024 09:11-0400 Hourly Rounding [place] [facility] 03-18-2024 08:10-0400 Body temperature 98.6 [degF] Toan Steine [facility] 03-18-2024 08:10-0400 Diastolic blood pressure 91 mm[Hg] [place] [facility] 03-18-2024 08:10-0400 Heart rate 98 /min [place] [facility] 03-18-2024 08:10-0400 Hourly Rounding [place] [facility] 03-18-2024 08:10-0400 Respiratory rate 17 /min [place] [facility] 03-18-2024 08:10-0400 SaO2% (BldA) [Mass fraction] 98 % [place] [facility] 03-18-2024 08:10-0400 Systolic blood pressure 135 mm[Hg] [place] [facility] 01-25-2024 08:59-0400 Body height 170.18 cm 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 Work Phone: [facility] 01-25-2024 08:59-0400 Body mass index (BMI) [Ratio] 37.4 kg/m2 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 Work Phone: [facility] 01-25-2024 08:59-0400 Body temperature 98 [degF] 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 Work Phone: [facility] 01-25-2024 08:59-0400 Body weight 108.4 kg 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 Work Phone: [facility] 01-25-2024 08:59-0400 Diastolic blood pressure 80 mm[Hg] 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 Work Phone: [facility] 01-25-2024 08:59-0400 Heart rate 98 /min 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 Work Phone: [facility] 01-25-2024 08:59-0400 Respiratory rate 20 /min 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 Work Phone: [facility] 01-25-2024 08:59-0400 SaO2% (BldA) [Mass fraction] 99 % 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 Work Phone: [facility] 01-25-2024 08:59-0400 Systolic blood pressure 122 mm[Hg] 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 Work Phone: [facility] 12-24-2023 09:56-0400 Body height 170.18 cm 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 Work Phone: [facility] 12-24-2023 09:56-0400 Body mass index (BMI) [Ratio] 37.7 kg/m2 MATERIAL HANDLER LOADER Darwin Eastermacy Work Phone: [facility] 12-24-2023 09:56-0400 Body temperature 97.6 [degF] MATERIAL HANDLER LOADER Darwin Eastermacy Work Phone: [facility] 12-24-2023 09:56-0400 Body weight 109.31 kg MATERIAL HANDLER LOADER Darwin Eastermacy Work Phone: [facility] 12-24-2023 09:56-0400 Diastolic blood pressure 84 mm[Hg] 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 Work Phone: [facility] 12-24-2023 09:56-0400 Heart rate 102 /min 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 Work Phone: [facility] 12-24-2023 09:56-0400 Respiratory rate 20 /min 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 Work Phone: [facility] 12-24-2023 09:56-0400 SaO2% (BldA) [Mass fraction] 98 % 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 Work Phone: [facility] 12-24-2023 09:56-0400 Systolic blood pressure 126 mm[Hg] 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 Work Phone: [facility] 11-25-2023 09:01-0400 Body height 170.18 cm 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 Work Phone: [facility] 11-25-2023 09:01-0400 Body mass index (BMI) [Ratio] 37.7 kg/m2 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 Work Phone: [facility] 11-25-2023 09:01-0400 Body temperature 97 [degF] SHIRLEY Jonesermacy Work Phone: [facility] 11-25-2023 09:01-0400 Body weight 109.31 kg MATERIAL HANDLER LOADERAlayna Jonesermacy Work Phone: [facility] 11-25-2023 09:01-0400 Diastolic blood pressure 76 mm[Hg] SHIRLEY Jonesermacy Work Phone: [facility] 11-25-2023 09:01-0400 Heart rate 95 /min MATERIAL HANDLER LOADERAlayna Jonesermacy Work Phone: [facility] 11-25-2023 09:01-0400 Respiratory rate 20 /min MATERIAL HANDLER LOADERAlayna Jonesermacy Work Phone: [facility] 11-25-2023 09:01-0400 SaO2% (BldA) [Mass fraction] 98 % MATERIAL HANDLER LOADERAlayna Jonesermacy Work Phone: [facility] 11-25-2023 09:01-0400 Systolic blood pressure 120 mm[Hg] SHIRLEY Jones Work Phone: [facility] 11-18-2023 08:03-0400 Body weight 110.68 kg Ruby Whittington MD Work Phone: [facility] 11-18-2023 08:03-0400 Diastolic blood pressure 92 mm[Hg] Ruby Whittington MD Work Phone: [facility] 11-18-2023 08:03-0400 Heart rate 100 /min Ruby Whittington MD Work Phone: [facility] 11-18-2023 08:03-0400 Systolic blood pressure 132 mm[Hg] Ruby Whittington MD Work Phone: [facility] 10-20-2023 09:05-0500 Body height 170.18 cm SHIRLEY Jonesermacy Work Phone: [facility] 10-20-2023 09:05-0500 Body mass index (BMI) [Ratio] 38.3 kg/m2 MATERIAL HANDLER LOADER Darwin Jones Work Phone: [facility] 10-20-2023 09:05-0500 Body temperature 98 [degF] MATERIAL HANDLER LOADER Darwin Jones Work Phone: [facility] 10-20-2023 09:05-0500 Body weight 111.13 kg MATERIAL HANDLER LOADER Darwin Jones Work Phone: [facility] 10-20-2023 09:05-0500 Diastolic blood pressure 78 mm[Hg] MATERIAL HANDLER LOADERAlayna Jonesermacy Work Phone: [facility] 10-20-2023 09:05-0500 Heart rate 82 /min MATERIAL HANDLER LOADER Darwin Jones Work Phone: [facility] 10-20-2023 09:05-0500 Respiratory rate 20 /min MATERIAL HANDLER LOADERAlayna Jones Work Phone: [facility] 10-20-2023 09:05-0500 SaO2% (BldA) [Mass fraction] 98 % MATERIAL HANDLER LOADERAlayna Jones Work Phone: [facility] 10-20-2023 09:05-0500 Systolic blood pressure 124 mm[Hg] MATERIAL HANDLER LOADER Darwin Jones Work Phone: [facility] 09-29-2023 10:41-0500 Blood Pressure Location [place] [facility] 09-29-2023 10:41-0500 Body temperature 98.24 [degF] [place] [facility] 09-29-2023 10:41-0500 Diastolic blood pressure 78 mm[Hg] [place] [facility] 09-29-2023 10:41-0500 Heart rate 95 /min [place] [facility] 09-29-2023 10:41-0500 SaO2% (BldA) [Mass fraction] 97 % [place] o[place] [facility] 09-29-2023 10:41-0500 Systolic blood pressure 122 mm[Hg] [place] [facility] 09-21-2023 09:00-0500 Body height 170.18 cm Darwin [facility] Other [employer] [facility] [employer] Other 09-21-2023 09:00-0500 Body mass index (BMI) [Ratio] 38.37 kg/m2 Darwin oLyfe Other [employer] Other 09-21-2023 09:00-0500 Body temperature 98 [degF] Darwin [facility] Other [employer] Other 09-21-2023 09:00-0500 Body weight 111.13 kg Darwin [facility] Other [employer] Other 09-21-2023 09:00-0500 Diastolic blood pressure 84 mm[Hg] Darwin Easterwood Other [employer] Other 09-21-2023 09:00-0500 Respiratory rate 20 /min Darwin [facility] Other [employer] Other 09-21-2023 09:00-0500 SaO2% (BldA) [Mass fraction] 98 % Darwin [facility] Other [employer] Other 09-21-2023 09:00-0500 Systolic blood pressure 126 mm[Hg] Darwin Easterwood Other [employer] Other 08-25-2023 09:30-0500 Body height 170.18 cm Darwin Easterwood Other [facility] 08-25-2023 09:30-0500 Body mass index (BMI) [Ratio] 39.46 kg/m2 Darwin Easterwood Other [facility] [employer] Other 08-25-2023 09:30-0500 Body temperature 97.6 [degF] Darwin Easterwood Other [facility] [employer] Other 08-25-2023 09:30-0500 Body weight 114.31 kg Darwin Easterwood Other [facility] [employer] Other 08-25-2023 09:30-0500 Body weight 114.3 kg 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 Work Phone: [facility] 08-25-2023 09:30-0500 Diastolic blood pressure 80 mm[Hg] Darwin Easterwood Other [facility] 08-25-2023 09:30-0500 Respiratory rate 20 /min Darwin Easterwood Other [employer] Other 08-25-2023 09:30-0500 SaO2% (BldA) [Mass fraction] 98 % Darwin Easterwood Other [employer] Other 08-25-2023 09:30-0500 Systolic blood pressure 120 mm[Hg] Darwin Easterwood Other [facility] 07-23-2023 09:30-0500 Body height 170.18 cm 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 Work Phone: [facility] 07-23-2023 09:30-0500 Body weight 116.57 kg 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 Work Phone: [facility] 07-23-2023 09:30-0500 Diastolic blood pressure 80 mm[Hg] 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 Work Phone: [facility] 07-23-2023 09:30-0500 Systolic blood pressure 118 mm[Hg] 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 Work Phone: [facility] 06-23-2023 09:30-0500 Body height 170.18 cm Darwin Easterwood Other [employer] Other 06-23-2023 09:30-0500 Body mass index (BMI) [Ratio] 40.4 kg/m2 Darwin Easterwood Other [employer] Other 06-23-2023 09:30-0500 Body temperature 97.4 [degF] Darwin Easterwood Other [employer] Other 06-23-2023 09:30-0500 Body weight 117.03 kg Darwin Easterwood Other [employer] Other 06-23-2023 09:30-0500 Diastolic blood pressure 78 mm[Hg] Darwin Easterwood Other [employer] Other 06-23-2023 09:30-0500 Respiratory rate 20 /min Darwin Easterwood Other [employer] Other 06-23-2023 09:30-0500 SaO2% (BldA) [Mass fraction] 98 % Darwin Easterwood Other [employer] Other 06-23-2023 09:30-0500 Systolic blood pressure 120 mm[Hg] Darwin Easterwood Other [employer] Other 06-08-2023 14:00-0400 Body temperature 97.2 [degF] Francy Gan PA-C Work Phone: [facility] 05-26-2023 10:30-0400 Body height 170.18 cm Darwin Easterwood Other [employer] Other 05-26-2023 10:30-0400 Body mass index (BMI) [Ratio] 41.5 kg/m2 Darwin Easterwood Other [employer] Other 05-26-2023 10:30-0400 Body temperature 98.4 [degF] Darwin Easterwood Other [employer] Other 05-26-2023 10:30-0400 Body weight 120.2 kg Darwin Easterwood Other [employer] Other 05-26-2023 10:30-0400 Diastolic blood pressure 70 mm[Hg] Darwin Easterwood Other [employer] Other 05-26-2023 10:30-0400 Respiratory rate 20 /min Darwin Easterwood Other [employer] Other 05-26-2023 10:30-0400 SaO2% (BldA) [Mass fraction] 97 % Darwin Easterwood Other [employer] Other 05-26-2023 10:30-0400 Systolic blood pressure 112 mm[Hg] Darwin Easterwood Other [employer] Other 04-28-2023 09:15-0400 Body height 170.18 cm Darwin Easterwood Other [employer] Other 04-28-2023 09:15-0400 Body mass index (BMI) [Ratio] 41.34 kg/m2 Darwin Easterwood Other [employer] Other 04-28-2023 09:15-0400 Body temperature 97.2 [degF] Darwin Easterwood Other [employer] Other 04-28-2023 09:15-0400 Body weight 119.75 kg Darwin Robertermacy Other [employer] Other 04-28-2023 09:15-0400 Diastolic blood pressure 82 mm[Hg] Darwin Easterwood Other [employer] Other 04-28-2023 09:15-0400 Respiratory rate 20 /min Darwin Easterwood Other [employer] Other 04-28-2023 09:15-0400 SaO2% (BldA) [Mass fraction] 97 % Darwin Easterwood Other [employer] Other 04-28-2023 09:15-0400 Systolic blood pressure 120 mm[Hg] Darwin Easterwood Other [employer] Other 04-16-2023 11:00-0400 Body height 170.18 cm Darwin Easterwood Other [employer] Other 04-16-2023 11:00-0400 Body mass index (BMI) [Ratio] 41.03 kg/m2 Darwin Easterwood Other [employer] Other 04-16-2023 11:00-0400 Body temperature 97.8 [degF] Darwin Easterwood Other [employer] Other 04-16-2023 11:00-0400 Body weight 118.84 kg Darwin Jonesermacy Other [employer] Other 04-16-2023 11:00-0400 Diastolic blood pressure 80 mm[Hg] [facility] Other [employer] Other 04-16-2023 11:00-0400 Respiratory rate 20 /min Darwin oLyfe Other [employer] Other 04-16-2023 11:00-0400 SaO2% (BldA) [Mass fraction] 98 % Darwin oLyfe Other [employer] Other 04-16-2023 11:00-0400 Systolic blood pressure 120 mm[Hg] Darwin Easterwood Other [employer] Other 03-22-2023 22:51-0400 Diastolic blood pressure 74 mm[Hg] Kaylinn Dokken [facility] 03-22-2023 22:51-0400 Heart rate 80 /min Kaylinn Dokken [facility] 03-22-2023 22:51-0400 Mean blood pressure 92 mm[Hg] Kaylinn Dokken [facility] 03-22-2023 22:51-0400 Respiratory rate 16 /min Kaylinn Dokken [facility] 03-22-2023 22:51-0400 SaO2% (BldA) [Mass fraction] 98 % Kaylinn Dokken [facility] 03-22-2023 22:51-0400 Systolic blood pressure 128 mm[Hg] Kaylinn Dokken [facility] 03-22-2023 21:24-0400 Heart rate 76 /min Kaylinn Dokken [facility] 03-22-2023 21:24-0400 Respiratory rate 16 /min Kaylinn Dokken [facility] 03-22-2023 21:24-0400 SaO2% (BldA) [Mass fraction] 97 % Kaylinn Dokken [facility] 03-22-2023 19:54-0400 Body temperature 98.06 [degF] Kaylinn Dokken [facility] 03-22-2023 19:54-0400 Diastolic blood pressure 89 mm[Hg] Kaylinn Dokken [facility] 03-22-2023 19:54-0400 Heart rate 81 /min Kaylinn Dokken [facility] 03-22-2023 19:54-0400 Respiratory rate 18 /min Kaylinn Dokken [facility] 03-22-2023 19:54-0400 SaO2% (BldA) [Mass fraction] 99 % Kaylinn Dokken [facility] 03-22-2023 19:54-0400 Systolic blood pressure 138 mm[Hg] Kaylinn Dokken [facility] 03-22-2023 15:18-0400 Body height 170.18 cm MATERIAL HANDLER LOADER Darwin [facility] Work Phone: [facility] 03-22-2023 15:18-0400 Body temperature 98.2 [degF] 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 Work Phone: [facility] 03-22-2023 15:18-0400 Body weight 120.5 kg MATERIAL HANDLER LOADER Darwin [facility] Work Phone: [facility] 03-22-2023 15:18-0400 Diastolic blood pressure 74 mm[Hg] MATERIAL HANDLER LOADER Darwin [facility] Work Phone: [facility] 03-22-2023 15:18-0400 Heart rate 92 /min MATERIAL HANDLER LOADER Darwin [facility] Work Phone: [facility] 03-22-2023 15:18-0400 Respiratory rate 20 /min MATERIAL HANDLER LOADER [facility] Work Phone: [facility] 03-22-2023 15:18-0400 SaO2% (BldA) [Mass fraction] 97 % MATERIAL HANDLER LOADER [facility] Work Phone: [facility] 03-22-2023 15:18-0400 Systolic blood pressure 175 mm[Hg] MATERIAL HANDLER LOADER Darwin [facility] Work Phone: [facility] 10-05-2022 09:00-0500 Body height 170.18 cm Ofeliaher Couchler Other [employer] Other 10-05-2022 09:00-0500 Body mass index (BMI) [Ratio] 37.21 kg/m2 Ofelia Missler Other [employer] Other 10-05-2022 09:00-0500 Body weight 107.78 kg Ofelia Missler Other [employer] Other 10-05-2022 09:00-0500 Diastolic blood pressure 45 mm[Hg] Ofelia Missler Other [employer] Other 10-05-2022 09:00-0500 Respiratory rate 18 /min Ofelia Missler Other [employer] Other 10-05-2022 09:00-0500 SaO2% (BldA) [Mass fraction] 97 % Ofelia Missler Other [employer] Other 10-05-2022 09:00-0500 Systolic blood pressure 100 mm[Hg] Ofelia Missler Other [employer] Other 09-02-2022 11:30-0500 Body height 170.18 cm Ofelia Missler Other [employer] Other 09-02-2022 11:30-0500 Body mass index (BMI) [Ratio] 38.04 kg/m2 Ofelia Missler Other [employer] Other 09-02-2022 11:30-0500 Body weight 110.18 kg Ofelia Missler Other [employer] Other 09-02-2022 11:30-0500 Diastolic blood pressure 79 mm[Hg] Ofelia Missler Other [employer] Other 09-02-2022 11:30-0500 Respiratory rate 18 /min Ofelia Missler Other [employer] Other 09-02-2022 11:30-0500 SaO2% (BldA) [Mass fraction] 96 % Ofelia Missler Other [employer] Other 09-02-2022 11:30-0500 Systolic blood pressure 119 mm[Hg] Ofelia Missler Other [employer] Other 08-25-2022 14:00-0500 Body height 170.18 cm Lilly Fitt Other [employer] Other 08-25-2022 14:00-0500 Body mass index (BMI) [Ratio] 38.01 kg/m2 Lilly Fitt Other [employer] Other 08-25-2022 14:00-0500 Body weight 110.09 kg Lilly Fitt Other [employer] Other 07-31-2022 09:45-0500 Body height 170.18 cm Ofelia Missler Other [employer] Other 07-31-2022 09:45-0500 Body mass index (BMI) [Ratio] 38.2 kg/m2 Ofelia Missler Other [employer] Other 07-31-2022 09:45-0500 Body weight 110.63 kg Ofelia Missler Other [employer] Other 07-31-2022 09:45-0500 Diastolic blood pressure 78 mm[Hg] Ofelia Missler Other [employer] Other 07-31-2022 09:45-0500 Respiratory rate 18 /min Ofelia Missler Other [employer] Other 07-31-2022 09:45-0500 SaO2% (BldA) [Mass fraction] 96 % Ofelia Missler Other [employer] Other 07-31-2022 09:45-0500 Systolic blood pressure 135 mm[Hg] Ofelia Missler Other [employer] Other 07-14-2022 08:49-0500 Body height 170.5 cm Ruby Whittington MD Work Phone: [facility] 07-14-2022 08:49-0500 Body weight 111.58 kg Ruby Whittington MD Work Phone: [facility] 07-14-2022 08:49-0500 Diastolic blood pressure 73 mm[Hg] Ruby Whittington MD Work Phone: [facility] 07-14-2022 08:49-0500 Heart rate 92 /min Ruby Whittington MD Work Phone: [facility] 07-14-2022 08:49-0500 Systolic blood pressure 140 mm[Hg] Ruby Whittington MD Work Phone: [facility] 06-17-2022 15:45-0400 Body height 170.18 cm Ofelia Missler Other [employer] Other 06-17-2022 15:45-0400 Body mass index (BMI) [Ratio] 38.99 kg/m2 Ofelia Missler Other [employer] Other 06-17-2022 15:45-0400 Body weight 112.95 kg Ofelia Missler Other [employer] Other 06-17-2022 15:45-0400 Diastolic blood pressure 90 mm[Hg] Ofelia Missler Other [employer] Other 06-17-2022 15:45-0400 Respiratory rate 18 /min Ofelia Missler Other [employer] Other 06-17-2022 15:45-0400 SaO2% (BldA) [Mass fraction] 96 % Ofelia Hester Other [employer] Other 06-17-2022 15:45-0400 Systolic blood pressure 140 mm[Hg] Ofelia Hester Other [employer] Other 06-04-2022 13:00-0400 Body height 170.18 cm Sima Ross Other [employer] Other 06-04-2022 13:00-0400 Body mass index (BMI) [Ratio] 38.37 kg/m2 Sima Ross Other [employer] Other 06-04-2022 13:00-0400 Body temperature 98.6 [degF] Sima Ross Other [employer] Other 06-04-2022 13:00-0400 Body weight 111.13 kg Sima Ross Other [employer] Other 06-04-2022 13:00-0400 Diastolic blood pressure 83 mm[Hg] Sima Ross Other [employer] Other 06-04-2022 13:00-0400 Respiratory rate 18 /min Sima Ross Other [employer] Other 06-04-2022 13:00-0400 SaO2% (BldA) [Mass fraction] 99 % Sima Ross Other [employer] Other 06-04-2022 13:00-0400 Systolic blood pressure 124 mm[Hg] Sima Ross Other [employer] Other 05-27-2022 12:15-0400 Body height 170.18 cm Lilly Luke Other [employer] Other 05-18-2022 09:30-0400 Body height 170.18 cm Ofelia Missler Other [employer] Other 05-18-2022 09:30-0400 Body mass index (BMI) [Ratio] 39.37 kg/m2 Ofelia Missler Other [employer] Other 05-18-2022 09:30-0400 Body temperature 98.1 [degF] Ofelia Missler Other [employer] Other 05-18-2022 09:30-0400 Body weight 114.04 kg Ofelia Missler Other [employer] Other 05-18-2022 09:30-0400 Diastolic blood pressure 80 mm[Hg] Ofelia Missler Other [employer] Other 05-18-2022 09:30-0400 Respiratory rate 18 /min Ofelia Missler Other [employer] Other 05-18-2022 09:30-0400 SaO2% (BldA) [Mass fraction] 99 % Ofelia Missler Other [employer] Other 05-18-2022 09:30-0400 Systolic blood pressure 115 mm[Hg] Ofelia Missler Other [employer] Other 04-17-2022 09:30-0400 Body height 170.18 cm Darwin Easterwood Other [employer] Other 04-17-2022 09:30-0400 Body mass index (BMI) [Ratio] 39.15 kg/m2 Darwin Easterwood Other [employer] Other 04-17-2022 09:30-0400 Body temperature 96.9 [degF] Darwin Easterwood Other [employer] Other 04-17-2022 09:30-0400 Body weight 113.4 kg Darwin Easterwood Other [employer] Other 04-17-2022 09:30-0400 Diastolic blood pressure 82 mm[Hg] Darwin Easterwood Other [employer] Other 04-17-2022 09:30-0400 Respiratory rate 20 /min Darwin Easterwood Other [employer] Other 04-17-2022 09:30-0400 SaO2% (BldA) [Mass fraction] 99 % Darwin Easterwood Other [employer] Other 04-17-2022 09:30-0400 Systolic blood pressure 124 mm[Hg] Darwin Easterwood Other [employer] Other 02-18-2022 21:41-0400 Diastolic blood pressure 88 mm[Hg] Fazal Antoni [facility] 02-18-2022 21:41-0400 Heart rate 84 /min Fazal Antoni [facility] 02-18-2022 21:41-0400 Mean blood pressure 101 mm[Hg] Fazal Antoni [facility] 02-18-2022 21:41-0400 Respiratory rate 17 /min Fazal Antoni [facility] 02-18-2022 21:41-0400 SaO2% (BldA) [Mass fraction] 98 % Darwin oLyfe Other [employer] [facility] [employer] Other 02-18-2022 21:41-0400 Systolic blood pressure 126 mm[Hg] Fazal Antoni [facility] 02-18-2022 20:42-0400 gluc 106 mg/dL Fazal Antoni [facility] 02-18-2022 20:42-0400 gluc Fazal Antoni [facility] 02-18-2022 20:33-0400 Body temperature 98.06 [degF] Fazal Antoni [facility] 02-18-2022 20:33-0400 Diastolic blood pressure 99 mm[Hg] Fazal Antoni [facility] 02-18-2022 20:33-0400 Heart rate 99 /min Fazal Antoni [facility] 02-18-2022 20:33-0400 Respiratory rate 18 /min Fazal Antoni [facility] 02-18-2022 20:33-0400 Systolic blood pressure 153 mm[Hg] Fazal Antoni [facility] 02-18-2022 10:00-0400 Body height 170.18 cm Darwin oLyfe Other [employer] Other 02-18-2022 10:00-0400 Body mass index (BMI) [Ratio] 38.52 kg/m2 [employer] Other [employer] Other 02-18-2022 10:00-0400 Body temperature 97 [degF] Darwin Easterwood Other [employer] Other 02-18-2022 10:00-0400 Body weight 111.59 kg Darwin Easterwood Other [employer] Other 02-18-2022 10:00-0400 Diastolic blood pressure 82 mm[Hg] Darwin Easterwood Other [employer] Other 02-18-2022 10:00-0400 Respiratory rate 20 /min Darwin Easterwood Other [employer] Other 02-18-2022 10:00-0400 Systolic blood pressure 118 mm[Hg] Darwin Easterwood Other [employer] Other 02-11-2022 12:00-0400 Body height 170.18 cm Darwin Easterwood Other [employer] Other 02-11-2022 12:00-0400 Body mass index (BMI) [Ratio] 37.9 kg/m2 Darwin Easterwood Other [employer] Other 02-11-2022 12:00-0400 Body temperature 97.2 [degF] Darwin Easterwood Other [employer] Other 02-11-2022 12:00-0400 Body weight 109.77 kg Darwin Easterwood Other [employer] Other 02-11-2022 12:00-0400 Diastolic blood pressure 88 mm[Hg] Darwin Easterwood Other [employer] Other 02-11-2022 12:00-0400 Respiratory rate 20 /min Darwin Jones Other [employer] Other 02-11-2022 12:00-0400 SaO2% (BldA) [Mass fraction] 98 % Darwin Jones Other [employer] Other 02-11-2022 12:00-0400 Systolic blood pressure 126 mm[Hg] Darwin Jones Other [employer] Other 09-03-2021 10:02-0500 Diastolic blood pressure 86 mm[Hg] [facility] Work Phone: 09-03-2021 10:02-0500 Systolic blood pressure 110 mm[Hg] Unknown [facility] DO Work Phone: 09-03-2021 09:55-0500 Body height 170.18 cm Unknown [facility] 600 DO Work Phone: 09-03-2021 09:55-0500 Body mass index (BMI) [Ratio] 32.36 kg/m2 Unknown [facility] 600 DO Work Phone: 09-03-2021 09:55-0500 Body surface area Derived from formula 2.05 m2 Unknown [facility] DO Work Phone: 09-03-2021 09:55-0500 Body weight 93.71 kg Unknown [facility] DO Work Phone: 09-03-2021 09:55-0500 Diastolic blood pressure 84 mm[Hg] Unknown [facility] DO Work Phone: 09-03-2021 09:55-0500 Heart rate 72 /min Unknown Unknown [facility] [facility] 600 DO Work Phone: 09-03-2021 09:55-0500 Systolic blood pressure 122 mm[Hg] Unknown Unknown [facility] 600 DO Work Phone: Encounters Encounter Date Encounter Type Care Provider Facility Start: 03-23-2024 ambulatory BRAIN SEAMUS Not Availa ble Start: 03-21-2024 End: 03-21-2024 ambulatory BRAIN SEAMUS Not Available Start: 03-18-2024 End: 03-18-2024 Emergency department patient visit [place] [facility] Start: 02-24-2024 End: 02-24-2024 Patient encounter procedure MATERIAL HANDLER LOADERAlayna Orosco Easterwood Work Phone: [facility] [place] Work Phone: Start: 02-24-2024 End: 02-24-2024 ambulatory MATERIAL HANDLER LOADER Darwin Anaya Easterwood Work Phone: [facility] Work Phone: Start: 01-25-2024 End: 01-25-2024 ambulatory MATERIAL HANDLER LOADER Darwin Jaclyn Easterwood Work Phone: [facility] Work Phone: Start: 01-25-2024 End: 01-25-2024 Patient encounter procedure 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 Work Phone: [facility] Work Phone: Start: 01-24-2024 End: 01-24-2024 Patient encounter procedure 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 Work Phone: [facility] [place] Work Phone: Start: 01-24-2024 End: 01-24-2024 ambulatory MATERIAL HANDLER LOADER Darwin J Easterwood Work Phone: [facility] Work Phone: Start: 12-27-2023 End: 12-27-2023 Patient encounter procedure MATERIAL HANDLER LOADER Darwin Joneserwood Work Phone: [facility] [place] Work Phone: Start: 12-27-2023 End: 12-27-2023 ambulatory MATERIAL HANDLER LOADER Darwin Jaclyn Easterwood Work Phone: [facility] Work Phone: Start: 12-24-2023 End: 12-24-2023 ambulatory MATERIAL HANDLER LOADER Darwin Anaya Easterwood Work Phone: [facility] Work Phone: Start: 12-24-2023 End: 12-24-2023 Patient encounter procedure MATERIAL HANDLER LOADER Darwin Joneserwood Work Phone: [facility] Work Phone: Start: 11-30-2023 End: 11-30-2023 Patient encounter procedure MATERIAL HANDLER LOADER Darwin Joneserwood Work Phone: [facility] [place] Work Phone: Start: 11-30-2023 End: 11-30-2023 ambulatory MATERIAL HANDLER LOADER Darwin Jaclyn Easterwood Work Phone: [facility] Work Phone: Start: 11-25-2023 End: 11-25-2023 ambulatory MATERIAL HANDLER LOADER Darwin J Easterwood Work Phone: [facility] Work Phone: Start: 11-25-2023 End: 11-25-2023 Patient encounter procedure MATERIAL HANDLER LOADER Darwin Roberterwood Work Phone: [facility] Work Phone: Start: 11-18-2023 End: 11-19-2023 ambulatory RUBY OLANSKY Facility:[facility] Start: 11-18-2023 End: 11-18-2023 Patient encounter procedure Ruby Whittington MD Work Phone: Endocrinology Comment on above: 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); Class 2 obesity; Irregular menstruation, unspecified; Female infertility; Calculus of kidney Start: 11-01-2023 End: 11-01-2023 Patient encounter procedure SHIRLEY Laramacy Work Phone: [facility] [place] Work Phone: Start: 11-01-2023 End: 11-01-2023 ambulatory SHIRLEY Anaya Yasir Work Phone: [facility] Work Phone: Start: 10-20-2023 End: 10-20-2023 Patient encounter procedure SHIRLEY Laramacy Work Phone: [facility] Work Phone: Start: 10-01-2023 End: 10-01-2023 Patient encounter procedure SHIRLEY Orosco Yasir Work Phone: [facility] [place] Work Phone: Start: 10-01-2023 End: 10-01-2023 ambulatory SHIRLEY Anaya Yasir Work Phone: [facility] Work Phone: Start: 09-29-2023 End: 09-29-2023 ambulatory Tyrone Rock Facility:[facility] Start: 09-29-2023 End: 09-29-2023 Patient encounter procedure Tyrone Rock [facility] Start: 09-21-2023 End: 09-21-2023 ambulatory Darwin Jones Other [employer] Other Start: 09-21-2023 Office outpatient vi sit 15 minutes Darwin Janewood [facility] Start: 08-30-2023 Patient encounter procedure MATERIAL HANDLER LOADER Darwin Jones Work Phone: [facility] Start: 08-25-2023 Follow-up encounter Darwin Jones [facility] Start: 08-25-2023 End: 08-25-[address] [employer] Other Start: 08-25-2023 End: 08-25-2023 Patient encounter procedure MATERIAL HANDLER LOADER Darwin Jones Work Phone: [facility] Work Phone: Start: 07-23-2023 End: 07-23-2023 Patient encounter procedure MATERIAL HANDLER LOADER Darwin Jones Work Phone: [facility] Work Phone: Start: 07-16-2023 Telephone encounter Ruby sneed MD Work Phone: Endocrinology Comment on above: Appointment Start: 06-23-2023 End: 06-23-2023 ambulatory Darwin Larawood Other [employer] Other Start: 06-23-2023 Office outpatient vi sit 15 minutes Darwin Larawood [facility] Start: 06-08-2023 End: 06-08-2023 ambulatory FRANCY GAN Facility:[facility] Start: 06-08-2023 End: 06-08-2023 Patient encounter procedure Francy Gan PA-C Work Phone: Otolaryngology Comment on above: Dysphagia, unspecifi ed type (Primary Dx); LPRD (laryngopharyngeal reflux disease) Start: 05-26-2023 End: 05-26-2023 ambulatory Darwin Roberterwood Other [employer] Other Start: 05-26-2023 Office outpatient [facility] Start: 05-06-2023 End: 05-06-2023 Patient encounter procedure MATERIAL HANDLER LOADER Darwin Jones Work Phone: [facility] [place] Work Phone: Start: 05-06-2023 End: 05-06-2023 ambulatory MATERIAL HANDLER LOADER Darwin Jones Work Phone: [facility] Work Phone: Start: 04-28-2023 End: 04-28-2023 ambulatory Darwin Laramassena Other [employer] Other Start: 04-28-2023 Office outpatient vi sit 40 [facility] Start: 04-16-2023 End: 04-16-2023 [facility] [employer] Other Start: 04-16-2023 Encounter for genera l adult medical examination without abnormal findings Darwin [facility] Start: 04-16-2023 Periodic preventive med est patient 18-39 yrs [facility] Start: 04-08-2023 End: 04-08-2023 Departed Referred MATERIAL HANDLER LOADER Darwin Jones Work Phone: [facility]-Employee Benefit Screening Start: 04-08-2023 End: 04-08-2023 ambulatory MATERIAL HANDLER LOADER Darwin Jones Work Phone: [facility] Work Phone: Start: 03-22-2023 End: 03-22-2023 Emergency department patient visit Gabriel Curtis [facility] Start: 03-22-2023 End: 03-22-2023 Emergency department patient visit MATERIAL HANDLER LOADER Darwin Jones Work Phone: [facility] Work Phone: Start: 02-28-2023 End: 02-28-2023 Departed Referred SHIRLEY Jones Work Phone: [facility] Start: 02-28-2023 End: 02-28-2023 ambulatory SHIRLEY Jones Work Phone: [facility] Work Phone: Start: 02-28-2023 End: 02-28-2023 Patient encounter procedure SHIRLEY Jones Work Phone: [facility] [address] Work Phone: Start: 12-10-2022 End: 12-10-2022 ambulatory SHIRLEY Jones Work Phone: [facility] Work Phone: Start: 12-10-2022 End: 12-10-2022 Patient encounter procedure SHIRLEY Jones Work Phone: [facility] [place] Work Phone: Start: 12-09-2022 End: 12-09-[address] NONE LISTED REQUEST Facility: Start: 12-08-2022 End: 12-08-2022 ambulatory Ofelia Mir Other [employer] Other Start: 12-08-2022 Encounter by ruben Gilbert cassidy [facility] Start: 10-22-2022 End: 10-22-2022 ambulatory Lilly Luke Other [employer] Other Start: 10-22-2022 [address] Lilly Luke [facility] Start: 10-16-2022 End: 10-16-2022 ambulatory MATERIAL HANDLER LOADERAlayna Orosco Jaclyn [facility] Work Phone: [facility] Work Phone: Start: 10-16-2022 End: 10-16-2022 Patient encounter procedure SHIRLEY Jones Work Phone: [facility] [place] Work Phone: Start: 10-15-2022 End: 10-15-2022 ambulatory Ofeliaher Hester Other [employer] Other Start: 10-15-[address] [facility] Start: 10-05-2022 Registered Recurring SHIRLEY Jones Work Phone: [facility] Work Phone: Start: 10-05-2022 [facility] Weight Management f/u [facility] Start: 10-05-2022 End: 10-05-2022 ambulatory Ofelia ler Other [employer] Other Start: 09-28-2022 ambulatory Ruby Whittington MD Work Phone: Endocrinology Comment on above: Synthroid Start: 09-02-2022 ([facility] Weight Management f/u [facility] Start: 09-02-2022 End: 09-02-2022 ambulatory Ofeliaher Couchler Other [employer] Other Start: 08-25-2022 ([facility] WM[facility]) PHUONG Insujatha ial Provider Lilly Luke [facility] Start: 08-25-2022 End: 08-25-2022 ambulatory Lilly Luke Other [employer] Other Start: 07-31-2022 [facility] Weight Management f/u [facility] Start: 07-31-2022 End: 07-31-2022 ambulatory Ofelia Hester Other [employer] Other Start: 07-20-2022 End: 07-20-2022 ambulatory Lilly Blackmont Other [employer] Other Start: 07-20-2022 Telephone encounter Lilly Neymarsonia 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); Class 2 obesity Start: 07-08-2022 End: 07-08-2022 ambulatory Ofelia Hester Other [employer] Other Start: 07-08-2022 Telephone encounter Ofelia Hester [facility] Start: 06-17-2022 ([facility]/U) [facility] Start: 06-17-2022 End: 06-17-2022 ambulatory Ofelia Hester Other [employer] Other Start: 06-04-2022 End: 06-04-2022 ambulatory Sima Ross Other [employer] Other Start: 06-04-2022 Office outpatient vi sit 15 minutes Sima Ross [facility] Start: 05-27-2022 End: 05-27-2022 ambulatory Lilly Blackmont Other [employer] Other Start: 05-27-2022 IBT FOR OBESITY GROU P 2-10 30M Lilly Luke [facility] Start: 05-25-2022 End: 05-25-2022 ambulatory Darwin Jones Other [employer] Other Start: 05-25-2022 Telephone encounter Geoffrey murphy MD Work Phone: Endocrinology Comment on above: Appointment (LVM for patient that appt on 05/[address] George has been rescheduled to 07/08 at [facility] with Dr. Robertson. sending mail reminder as well. ) Start: 05-19-2022 End: 05-19-2022 ambulatory Ofelia Hester Other [employer] Other Start: 05-19-2022 Telephone encounter Ofelia Hester [facility] Start: 05-18-2022 End: 05-18-2022 ambulatory Ofelia Hester Other [employer] Other Start: 05-18-2022 Nutrition therapy Ofelia Hester [facility] Start: 04-21-2022 End: 04-21-2022 ambulatory Darwin Easterwood Other [employer] Other Start: 04-21-2022 Telephone encounter Darwin Easterwood [facility] Start: 04-17-2022 End: 04-17-2022 ambulatory Darwin Easterwood Other [employer] Other Start: 04-17-2022 Office outpatient vi sit 25 minutes Darwin Easterwood [facility] Start: 04-15-2022 End: 04-15-2022 ambulatory Darwin Easterwood Other [employer] Other Start: 04-15-2022 Telephone encounter Darwin Easterwood [facility] Start: 04-14-2022 End: 04-14-2022 Patient encounter procedure PHYSICIAN [facility] [place] Start: 04-10-2022 End: 04-10-2022 ambulatory Lilly Fitt Other [employer] Other Start: 04-10-2022 Telephone encounter Lilly Eubanks [facility] Start: 04-06-2022 End: 04-06-2022 Patient encounter procedure PHYSICIAN NO [facility] [place] Start: 02-24-2022 End: 02-24-2022 ambulatory Darwin Janemassena Other [employer] Other Start: 02-24-2022 [facility] Start: 02-18-2022 End: 02-18-2022 Emergency department patient visit Fazal VasquezEfren Corrales [facility] Start: 02-18-2022 End: 02-18-2022 ambulatory Darwincary Jones Other [employer] Other Start: 02-18-2022 Office outpatient vi sit 25 minutes [facility] Start: 02-18-2022 [facility] Start: 02-13-2022 End: 02-13-2022 Patient encounter procedure PHYSICIAN NO [facility] [place] Start: 02-11-2022 End: 02-11-2022 ambulatory Darwincary Laramassena Other [employer] Other Start: 02-11-2022 Office outpatient ne w 45 minutes Darwin [facility] Start: 02-10-2022 End: 02-10-2022 Departed Referred PHYSICIAN NO [facility]-Employee Benefit Screening Start: 09-04-2021 Chart Update Unknown Unknown [facility] 250 DO Work Phone: Start: 09-03-2021 Office outpatient ne w 45 minutes Unknown Unknown -[facility] [facility] 600 DO Work Phone: Procedures Date Procedure Procedure Detail Performing Clinician Start: 02-13-2022 US scan of thyroid PHYS ICIAN NO FAMILY section Unknown Unk nown section Fazal Bush er NEGATED: Highlighted row has not occurred! Total colonoscopy Unknown Unknown Plan of Treatment Date Care Activity Detail Author Start: 03-23-2026 Urine microalbumin profile [facility] Start: 08-16-2023 Behavioral Health Screening Behavioral Health Screening [facility] Start: 05-06-2023 US scan of thyroid US thyroid [facility] Start: 04-16-2023 Covid-19 Vaccine () Covid-19 Vaccine () [facility] Start: 04-16-2023 Influenza vaccination Influenza Vacc ine (#1) [facility] Start: 04-08-2023 [facility] Start: 08-16-2022 [facility]PRESS[facility] Start: 04-16-2022 Influenza vaccination INFLUENZA (#1) [facility] Start: 08-16-2021 DEPRESSION ASSESSMENT DEPRESSION ASS ESSMENT [facility] Start: 01-10-2021 COVID-19 VACCINE (3 - Booster) COVID-19 VACCINE (3 - Booster) [facility] Start: 2017 PAP TESTING PAP TESTING [facility] Start: 2017 Screening for malign ant neoplasm of cervix Pap Testing [facility] Start: 2015 Urine microalbumin profile DTAP,TDAP,TD (1 - Tdap) [facility] Start: 2014 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 VINH DISEASE VISIT ANNUAL PCP TEAM CHRONIC DISEASE VISIT [facility] Start: 2014 HEPATITIS C SCREENING HEPATITIS C [facility] Start: 2014 Hepatitis C screening Hepatitis C [facility] Start: 2014 HIV SCREENING HIV SCREENING [facility] Start: 2014 HIV screening HIV Screening [facility] Start: 2010 PEDS TO ADULT TRANSI TION ANNUAL ASSESSMENT PEDS TO ADULT TRANSITION ANNUAL ASSESSMENT [facility] Start: 2008 PEDS TO ADULT TRANSI TION INITIAL DISCUSSION PEDS TO ADULT TRANSITION INITIAL DISCUSSION [facility] Start: 2007 HPV VACCINE (1 - 2-d ose series) HPV VACCINE (1 - 2-dose series) [facility] Start: 2005 HPV Vaccine (1 - 2-d ose series) HPV Vaccine (1 - 2-dose series) [facility] Start: 1996 COVID-19 VACCINE (#1) COVID-19 VACCI NE (#1) [facility] Start: 1996 HEPATITIS B (1 of 3 - 3-dose series) HEPATITIS B (1 of 3 - 3-dose series) [facility] Patient referral [facility] Work Phone: Progesterone [Mass/volume] in Serum or Plasma [facility] Progesterone [Mass/volume] in Serum or Plasma [facility] Progesterone [Mass/volume] in Serum or Plasma [facility] Progesterone [Mass/volume] in Serum or Plasma [facility] Progesterone [Mass/volume] in Serum or Plasma [facility] End: 07-07-2024 XR MODIFIED BARIUM SWALLOW W SPEECH THERAPY XR MODIFIED BARIUM SWALLOW W SPEECH THERAPY Radiology Routine Dysphagia, unspecified type 1 Occurrences starting 06/08/2023 until 07/07/2024 [facility] Work Phone: Comment on above: 1 Occurrences starti ng 06/08/2023 until 07/07/2024 [facility] Work Phone: [facility] Immunizations Immunization Date Immunization Notes Care Provider Vaishali yo 05-21-2023 influenza virus vaccine, unspecified formulation Tyrone Rock [facility] 05-21-2023 influenza, injectabl e, 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, 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 Work Phone: [facility] 05-21-2023 influenza, injectabl e, 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, contains 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 Darwin Easterwood Other [employer] Other 06-15-2022 influenza, injectabl e, 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, 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 Work Phone: [facility] 06-15-2022 influenza, injectabl e, 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, contains 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 Darwin Easterwood Other [facility] Work Phone: 06-15-2022 influenza virus vaccine, unspecified formulation Francy Gan PA-C Work Phone: [facility] 06-15-2021 influenza nasal, unspecified formulation Ruby Whittington MD Work Phone: [facility] Work Phone: 06-15-2021 influenza virus vaccine, unspecified formulation Tyrone Pranav [facility] 06-15-2021 influenza, injectabl e, 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, 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 Work Phone: [facility] 06-15-2021 influenza, injectabl e, 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, contains 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 Darwin Easterwood Other [facility] Work Phone: 05-15-2021 influenza nasal, unspecified formulation Ruby Whittington MD Work Phone: [facility] Work Phone: 05-15-2021 influenza virus vaccine, unspecified formulation Tyrone Polancopsey [facility] 05-15-2021 influenza, high dose seasonal, 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-free Unknown Unknown [facility] Work Phone: 11-15-2020 Pfizer-BioNTech COVID-19 Vacc 30 MCG/0.3ML Intramuscular Suspension Unknown Unknown [facility] 11-12-2020 COVID-19 vaccine, unknown product (NON-US) Ruby Whittington MD Work Phone: [facility] Work Phone: 10-24-2020 Pfizer-BioNTech COVID-19 Vacc 30 MCG/0.3ML Intramuscular Suspension Unknown Unknown [facility] 03-23-2016 tetanus toxoid, reduced diphtheria toxoid, and acellular pertussis vaccine, adsorbed Unknown Unknown [facility] Work Phone: 03-23-2016 varicella virus vaccine Unknown Unknown [facility] Work Phone: 03-01-2002 diphtheria, tetanus toxoids and acellular pertussis vaccine, unspecified formulation Unknown [facility] Work Phone: 03-01-2002 DTaP, unspecified formulation Tyrone Rock [facility] 03-01-2002 measles, mumps and rubella virus vaccine Unknown Unknown [facility] Work Phone: 03-01-2002 poliovirus vaccine, inactivated Unknown Unknown [facility] Work Phone: 03-01-2002 poliovirus vaccine, unspecified formulation Tyrone Pranav [facility] 04-20-2001 hepatitis B vaccine, pediatric or pediatric/adolescent dosage Unknown Unknown [facility] Work Phone: 01-03-1998 diphtheria, tetanus toxoids and acellular pertussis vaccine, unspecified formulation Unknown [facility] Work Phone: 01-03-1998 DTaP, unspecified formulation Tyrone Pranav [facility] 09-18-1997 measles, mumps and rubella virus vaccine Unknown Unknown [facility] Work Phone: 09-18-1997 varicella virus vaccine Unknown Unknown [facility] Work Phone: 03-30-1997 hepatitis B vaccine, pediatric or pediatric/adolescent dosage Unknown Unknown [facility] Work Phone: 1996 diphtheria, tetanus toxoids and acellular pertussis vaccine, unspecified formulation Unknown [facility] Work Phone: 1996 DTaP, unspecified formulation Tyrone Pranav [facility] 1996 trivalent poliovirus vaccine, live, oral Unknown Unknown [facility] Work Phone: 1996 diphtheria, tetanus toxoids and acellular pertussis vaccine, unspecified formulation Unknown Unknown [facility] Work Phone: 1996 DTaP, unspecified formulation Tyrone Rock [facility] 1996 haemophilus influenz ae type b vaccine, conjugate unspecified formulation Unknown Unknown [facility] Work Phone: 1996 Hib, unspecified formulation Tyrone Rock [facility] 1996 trivalent poliovirus vaccine, live, oral Unknown Unknown [facility] Work Phone: 1996 diphtheria, tetanus toxoids and acellular pertussis vaccine, unspecified formulation Unknown Unknown [facility] Work Phone: 1996 DTaP, unspecified formulation [facility] 1996 diphtheria, tetanus toxoids and acellular pertussis vaccine, unspecified formulation Unknown Unknown [facility] Work Phone: 1996 DTaP, unspecified formulation [facility] 1996 haemophilus influenz ae type b vaccine, conjugate unspecified formulation Unknown Unknown [facility] Work Phone: 1996 Hib, unspecified formulation [place] [facility] 1996 measles, mumps and rubella virus vaccine Unknown Unknown [facility] Work Phone: 1996 varicella virus vaccine Unknown Unknown [facility] Work Phone: 1996 diphtheria, tetanus toxoids and acellular pertussis vaccine, unspecified formulation Unknown Unknown [facility] Work Phone: 1996 DTaP, unspecified formulation [facility] 1996 haemophilus influenz ae type b vaccine, conjugate unspecified formulation Unknown Unknown [facility] Work Phone: 1996 hepatitis B vaccine, pediatric or pediatric/adolescent dosage Unknown Unknown [facility] Work Phone: 1996 Hib, unspecified formulation [facility] 1996 trivalent poliovirus vaccine, live, oral Unknown Unknown [facility] Work Phone: 1996 hepatitis B vaccine, pediatric or pediatric/adolescent dosage Unknown Unknown [facility] Work Phone: Payers Date Payer Category Payer Self-pay [id number] 2023 Unknown [id number] [employer] [id number] 2021 Unknown 1996 Unknown [id number] 2.16.84 [id number] 1996 Unknown [id number] 2.16.8 40.1.789217.3.579.2.727 1996 Unknown [id number] 2.16.8 40.1.038049.3.579.2.727 1996 Unknown [id number] 2.16.8 40.1.916483.3.579.2.727 1996 Unknown [id number] 2.16.8 40.1.034085.3.579.2.727 1996 Unknown [id number] 2.16.84 0.1.355998.3.579.2.1259 1996 Unknown [id number] 2.16.84 0.1.739560.3.579.2.1259 1996 Unknown [id number] 2.16.84 0.1.166589.3.579.2.1259 1959 Unknown [id number] Unknown [id number] [id number] Unknown [id number] 2.16.8 40.1.349372.3.579.2.531 Unknown [id number] 2.16.8 40.1.508701.3.579.2.531 Unknown [id number] 2.16.8 40.1.817182.3.579.2.531 Unknown [id number] 2.16.8 40.1.286142.3.579.2.531 Unknown [id number] 2.16.8 40.1.595624.3.579.2.531 Unknown [id number] 2.16.8 40.1.758351.3.579.2.531 Unknown [id number] 2.16.8 40.1.360330.3.579.2.531 Unknown [id number] 2.16.8 40.1.264238.3.579.2.531 Unknown [id number] 2.16.8 40.1.965563.3.579.2.531 Social History Date Type Detail Facility Start: 07-14-2022 End: 06-08-2023 No alcohol use No alcohol use [place] [id number] DO Work Phone: Start: 12-29-2020 End: 09-29-2023 Tobacco smoking status NHIS Never smoked tobacco (finding) [facility] Start: 1995 Sex Assigned At Female [facility] Start: 07-14-2022 End: 06-08-2023 Sex Assigned At [facility] [employer] Other Tobacco smoking status Never [facility] Tobacco smoking status IAIS Tobacco smoking consumption unknown [facility] Start: 1996 Sex Assigned At Not on file [facility] Start: 04-17-2022 End: 07-14-2022 Exposure to SARS-CoV-2 (event) Not sure [facility] Start: 07-14-2022 Tobacco use and exposure Smokeless tobacco non-user [facility] Start: 07-14-2022 End: 11-18-2023 Alcohol intake Lifetime non-drinker (finding) [facility] Start: 07-13-2022 Gender identity Identifies as female gender (finding) [facility] NEGATED: Highlighted rowStart: NINF History of tobacco use Passive smoker [facility] Medical Equipment Procedure Code Equipment Code Equipment Origin al Text Equipment Identifier Dates Pen [place] 31G X 5 MM Start: 05-18-2022 Functional Status Date Assessment Result Facility 03-18-2024 Functional Status N/A [facility] 09-29-2023 Functional Status N/A [facility] 03-22-2023 Functional Status N/A [facility] 02-18-2022 Functional Status N/A [facility] Clinical Notes 01-14-2022 to 03-18-2024 Ruby Whittington MD - 11/18/2023 8:18 AM EDTPatient Instructions Note Date & Type Note Facility 03-18-2024 Hospital Discharg e instructions Patient Education 03/18/2024 12:15:03 Threatened Miscarriage Threatened Miscarriage A threatened miscarriage occurs when a woman has vaginal bleeding during the first 20 weeks of but the has not ended. If vaginal bleeding occurs during this time, the health care provider will do tests to make sure the woman is still . The woman's condition may be considered a threatened miscarriage if the tests show: That she is still . That the embryo or unborn baby (fetus) inside the uterus is still growing. A threatened miscarriage does not mean your will end, but it does increase the risk of losing your (miscarriage). What are the causes? The cause of this condition is usually not known. What increases the risk? The following factors may make a woman more likely to have a miscarriage: Certain medical conditions Conditions that affect the hormone balance in the body, such as thyroid disease or polycystic ovary syndrome. Diabetes. Autoimmune disorders. Infections. Bleeding disorders. Obesity. Lifestyle factors Using products with tobacco or nicotine or being exposed to tobacco smoke. Having alcohol. Having large amounts of caffeine. Recreational drug use. Problems with reproductive organs or structures Cervical insufficiency. This is when the the lowest part of the uterus (cervix) opens and thins before is at term. Having a condition called Asherman syndrome, which causes scarring in the uterus or causes the uterus to be abnormal in structure. Fibrous growths, called fibroids, in the uterus. Congenital abnormalities. These problems are present at . Infection of the cervix or uterus. Personal or medical history Injury (trauma). Having had a miscarriage before. Being younger than age 18 or older than age 35. Exposure to harmful substances in the environment. This may include radiation or heavy metals, such as lead. Using certain medicines. What are the signs or symptoms? Symptoms of this condition include: Vaginal bleeding or spotting, with or without cramps or pain. Mild pain or cramps in your abdomen. How is this diagnosed? You may have tests to check whether you are still . These tests will be done if you have bleeding, with or without pain, in your abdomen before the 20th week of . These tests include: Ultrasound. A physical exam. Measurement of your baby's heart rate. Lab tests, such as blood tests, urine tests, or swabs for infection. You may be diagnosed with a threatened miscarriage if: Ultrasound testing shows that you are still . Your baby's heart rate is strong. A physical exam shows that your cervix is closed. Blood tests confirm that you are still . How is this treated? No treatments have been shown to prevent a threatened miscarriage from going on to a complete miscarriage. However, the right home care is important. Follow these instructions at home: Get plenty of rest. Do not have sex, douche, or put anything in your vagina, such as tampons, until your health care provider says it is okay. Do not smoke or use recreational drugs. Do not drink alcohol. Avoid caffeine. Keep all follow-up visits. This is important. Contact a health care provider if: You have light vaginal bleeding or spotting while . You have pain or cramping in your abdomen. You have a fever. Get help right away if: Heavy bleeding soaks through 2 large sanitary pads an hour for more than 2 hours. Blood clots come out of your vagina. Tissue comes out of your vagina. You leak fluid, or you have a gush of fluid from your vagina. You have severe low back pain or cramps in your abdomen. You have a fever, chills, and severe pain in the abdomen. Summary A threatened miscarriage occurs when a woman bleeds from the vagina during the first 20 weeks of but the has not ended. The cause of a threatened miscarriage is usually not known. Symptoms of this condition may include vaginal bleeding and mild pain or cramps in your abdomen. No treatments have been shown to prevent a threatened miscarriage from going on to a complete miscarriage. Keep all follow-up visits. This is important. This information is not intended to replace advice given to you by your health care provider. Make sure you discuss any questions you have with your health care provider. Document Revised: 01/31/2021 Document Reviewed: 01/31/2021 [employer] Patient Education 2022 [employer]. 03/18/2024 12:15:03 Subchorionic Hematoma Subchorionic Hematoma A hematoma is a collection of blood outside of the blood vessels. A subchorionic hematoma is a collection of blood between the outer wall of the embryo (chorion) and the inner wall of the uterus. This condition can cause vaginal bleeding. Early small hematomas usually shrink on their own and do not affect your baby or . When bleeding starts later in , or if the hematoma is larger or occurs in older women, the condition may be more serious. Larger hematomas increase the chances of miscarriage. This condition also increases the risk of: Premature separation of the placenta from the uterus. Premature () labor. Stillbirth. What are the causes? The exact cause of this condition is not known. It occurs when blood is trapped between the placenta and the uterine wall because the placenta has from the original site of implantation. What increases the risk? You are more likely to develop this condition if: You were treated with fertility medicines. You became through in vitro fertilization (IVF). What are the signs or symptoms? Symptoms of this condition include: Vaginal spotting or bleeding. Abdominal pain. This is rare. Sometimes you may have no symptoms and the bleeding may only be seen when ultrasound images are taken (transvaginal ultrasound). How is this diagnosed? This condition is diagnosed based on a physical exam. This includes a pelvic exam. You may also have other tests, including: Blood tests. Urine tests. Ultrasound of the abdomen. How is this treated? Treatment for this condition can vary. Treatment may include: Watchful waiting. You will be monitored closely for any changes in bleeding. Medicines. Activity restriction. This may be needed until the bleeding stops. A medicine called Rh immunoglobulin. This is given if you have an Rh-negative blood type. It prevents Rh sensitization. Follow these instructions at home: Stay on bed rest if told to do so by your health care provider. Do not lift anything that is heavier than 10 lb (4.5 kg), or the limit that you are told by your health care provider. Track and write down the number of pads you use each day and how soaked (saturated) they are. Do not use tampons. Keep all follow-up visits. This is important. Your health care provider may ask you to have follow-up blood tests or ultrasound tests or both. Contact a health care provider if: You have any vaginal bleeding. You have a fever. Get help right away if: You have severe cramps in your stomach, back, abdomen, or pelvis. You pass large clots or tissue. Save any tissue for your health care provider to look at. You faint. You become light-headed or weak. Summary A subchorionic hematoma is a collection of blood between the outer wall of the embryo (chorion) and the inner wall of the uterus. This condition can cause vaginal bleeding. Sometimes you may have no symptoms and the bleeding may only be seen when ultrasound images are taken. Treatment may include watchful waiting, medicines, or activity restriction. Keep all follow-up visits. Get help right away if you have severe cramps or heavy vaginal bleeding. This information is not intended to replace advice given to you by your health care provider. Make sure you discuss any questions you have with your health care provider. Document Revised: 04/28/2021 Document Reviewed: 04/28/2021 [employer] Patient Education 2022 [employer]. Follow Up Care 03/18/2024 08:08:01 With:Rogelio Nath Address: [address], [facility] [address] [place] [address]- Business (1) When:03/21/2024 11:54:39 With:DARWIN JONES Address: [address] [facility] [address]- [phone] Business (1) When:Within 3 Day(s) [facility] 03-18-2024 Note ED Patient Education Note Obstetrics and Gynecology Threatened Miscarriage A threatened miscarriage occurs when a woman has vaginal bleeding during the first 20 weeks of but the has not ended. If vaginal bleeding occurs during this time, the health care provider will do tests to make sure the woman is still . The woman's condition may be considered a threatened miscarriage if the tests show: ? That she is still . ? That the embryo or unborn baby (fetus) inside the uterus is still growing. A threatened miscarriage does not mean your will end, but it does increase the risk of losing your (miscarriage). What are the causes? The cause of this condition is usually not known. What increases the risk? The following factors may make a woman more likely to have a miscarriage: Certain medical conditions ? Conditions that affect the hormone balance in the body, such as thyroid disease or polycystic ovary syndrome. ? Diabetes. ? Autoimmune disorders. ? Infections. ? Bleeding disorders. ? Obesity. Lifestyle factors ? Using products with tobacco or nicotine or being exposed to tobacco smoke. ? Having alcohol. ? Having large amounts of caffeine. ? Recreational drug use. Problems with reproductive organs or structures ? Cervical insufficiency. This is when the the lowest part of the uterus (cervix) opens and thins before is at term. ? Having a condition called Asherman syndrome, which causes scarring in the uterus or causes the uterus to be abnormal in structure. ? Fibrous growths, called fibroids, in the uterus. ? Congenital abnormalities. These problems are present at . ? Infection of the cervix or uterus. Personal or medical history ? Injury (trauma). ? Having had a miscarriage before. ? Being younger than age 18 or older than age 35. ? Exposure to harmful substances in the environment. This may include radiation or heavy metals, such as lead. ? Using certain medicines. What are the signs or symptoms? Symptoms of this condition include: ? Vaginal bleeding or spotting, with or without cramps or pain. ? Mild pain or cramps in your abdomen. How is this diagnosed? You may have tests to check whether you are still . These tests will be done if you have bleeding, with or without pain, in your abdomen before the 20th week of . These tests include: ? Ultrasound. ? A physical exam. ? Measurement of your baby's heart rate. ? Lab tests, such as blood tests, urine tests, or swabs for infection. You may be diagnosed with a threatened miscarriage if: ? Ultrasound testing shows that you are still . ? Your baby's heart rate is strong. ? A physical exam shows that your cervix is closed. ? Blood tests confirm that you are still . How is this treated? No treatments have been shown to prevent a threatened miscarriage from going on to a complete miscarriage. However, the right home care is important. Follow these instructions at home: ? Get plenty of rest. ? Do not have sex, douche, or put anything in your vagina, such as tampons, until your health care provider says it is okay. ? Do not smoke or use recreational drugs. ? Do not drink alcohol. ? Avoid caffeine. ? Keep all follow-up visits. This is important. Contact a health care provider if: ? You have light vaginal bleeding or spotting while . ? You have pain or cramping in your abdomen. ? You have a fever. Get help right away if: ? Heavy bleeding soaks through 2 large sanitary pads an hour for more than 2 hours. ? Blood clots come out of your vagina. ? Tissue comes out of your vagina. ? You leak fluid, or you have a gush of fluid from your vagina. ? You have severe low back pain or cramps in your abdomen. ? You have a fever, chills, and severe pain in the abdomen. Summary ? A threatened miscarriage occurs when a woman bleeds from the vagina during the first 20 weeks of but the has not ended. ? The cause of a threatened miscarriage is usually not known. ? Symptoms of this condition may include vaginal bleeding and mild pain or cramps in your abdomen. ? No treatments have been shown to prevent a threatened miscarriage from going on to a complete miscarriage. ? Keep all follow-up visits. This is important. This information is not intended to replace advice given to you by your health care provider. Make sure you discuss any questions you have with your health care provider. Document Revised: 01/31/2021 Document Reviewed: 01/31/2021 [employer] Patient Education ? 2022 [employer] Subchorionic Hematoma A hematoma is a collection of blood outside of the blood vessels. A subchorionic hematoma is a collection of blood between the outer wall of the embryo (chorion) and the inner wall of the uterus. This condi (more content not included)... [facility] 11-18-2023 Note HNO ID: [id number] Author: RUBY WHITTINGTON MD Service: ? Author Type: Physician Type: Progress Notes Filed: 11/18/2023 08:41 Note Text: Answers submitted by the patient for this visit: Core Review of Systems (Submitted on 11/12/2023) Fever : No Night sweats: No Recent unintentional weight change: No Nasal Congestion: No Hearing Loss: No Vision Disturbance: No A cough: No Difficulty Breathing?: No Chest pain: No Irregular heartbeat: No Leg Swelling: No Nausea: No Diarrhea: No Black tarry stools: No Difficulty Urinating?: No Awaken at Night More Than Once to Urinate?: No Joint pain or stiffness: No Muscle aches: No Leg or Foot Discomfort at Night?: No A rash: No Dizziness: No Headaches: No Memory Loss: No Seizures: No Tawnya Herring is a 28 year old female who is presenting today November 18, 2023 for a Thyroid problem. 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 Previous laboratory results: TSH (mIU/L) Date Value 07/14/2022 2.480 Free T4 (ng/dL) Date Value 07/14/2022 1.3 Subjective: Weight: remained stable; Energy: improving; Moods: good Sleep: Terminal insomnia; Temp. Intolerance: Heat Intolerance Diaphoresis: Not significant; Memory: Fair Thyroid Pain: no; Mass Effect: difficulty swallowing improved on PPI CV: No history of chest pain, palpitation, orthopnea, cyanosis, pedal edema; Resp: No cough, hemoptysis, asthma, recent chest infection, wheezing; GI: No blood in stool, pain with BM, tarry stool, persistent diarrhea or constipation; REPRODUCTIVE: irregular cycle infertility- Polycystic ovaries Eyes: No; Skin: Negative M/S: negative ; Neuro: frequent headaches Other: Has had renal stone but none recently. Physical Exam BP 132/92 Pulse 100 Wt 110.7 kg (244 lb) LMP 11/09/2023 BMI 38.07 kg/m? APPEARANCE: Well appearing, alert, in no acute distress, Obese EYES ZAINAB, extra occular movements normal NECK Supple, no adenopathy; thyroid symmetric, mildly enlarged. 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 Had lab in August that showed she was adequately replaced on 75 mcg daily. 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 She had no real difficulty getting twice previously but recently menses have become irregular and U/S showed polycystic ovaries. She has had renal stones in the past but none recently. Recommendations: Continue levothyroxine 75 mcg daily. RTN 1 year. Ruby Whittington MD Endocrinology Staff [facility] 11-18-2023 History of Presen t illness Narrative Images from the original note were not included. Answers submitted by the patient for this visit: Core Review of Systems (Submitted on 11/12/2023) Fever : No Night sweats: No Recent unintentional weight change: No Nasal Congestion: No Hearing Loss: No Vision Disturbance: No A cough: No Difficulty Breathing?: No Chest pain: No Irregular heartbeat: No Leg Swelling: No Nausea: No Diarrhea: No Black tarry stools: No Difficulty Urinating?: No Awaken at Night More Than Once to Urinate?: No Joint pain or stiffness: No Muscle aches: No Leg or Foot Discomfort at Night?: No A rash: No Dizziness: No Headaches: No Memory Loss: No Seizures: No Tawnya Herring is a 28 year old female who is presenting today November 18, 2023 for a Thyroid problem. 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 Previous laboratory results: TSH (mIU/L) Date Value 07/14/2022 2.480 Free T4 (ng/dL) Date Value 07/14/2022 1.3 Subjective: Weight: remained stable; Energy: improving; Moods: good Sleep: Terminal insomnia; Temp. Intolerance: Heat Intolerance Diaphoresis: Not significant; Memory: Fair Thyroid Pain: no; Mass Effect: difficulty swallowing improved on PPI CV: No history of chest pain, palpitation, orthopnea, cyanosis, pedal edema; Resp: No cough, hemoptysis, asthma, recent chest infection, wheezing; GI: No blood in stool, pain with BM, tarry stool, persistent diarrhea or constipation; REPRODUCTIVE: irregular cycle infertility- Polycystic ovaries Eyes: No; Skin: Negative M/S: negative ; Neuro: frequent headaches Other: Has had renal stone but none recently. Physical Exam BP 132/92 Pulse 100 Wt 110.7 kg (244 lb) LMP 11/09/2023 BMI 38.07 kg/m APPEARANCE: Well appearing, alert, in no acute distress, Obese EYES ZAINAB, extra occular movements normal NECK Supple, no adenopathy; thyroid symmetric, mildly enlarged. 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 Had lab in August that showed she was adequately replaced on 75 mcg daily. 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 She had no real difficulty getting twice previously but recently menses have become irregular and U/S showed polycystic ovaries. She has had renal stones in the past but none recently. Recommendations: Continue levothyroxine 75 mcg daily. RTN 1 year. Ruby Whittington MD Endocrinology Staff documented in this encounter [facility] 11-18-2023 Instructions Odalis Greene - 11/18/2023 7:58 AM EDT Thank you for choosing the [facility] Department of Endocrinology, Diabetes and Metabolism. Did you know that you need to call 48 hours in advance of your scheduled visit, if you are unable to make your appointment? The Endocrinology and Metabolism [place] thanks you for your commitment, because patients not showing to their appointment results in a lost opportunity for patients to receive [facility] health care at the [facility]. To Cancel an appointment, please choose one of the following: - Call the Appointment Call Center at [phone] - From [employer], Go to Appointments - Cancel Appts If cancelling, consider your need to reschedule to prevent further delays in your care. To Schedule an appointment, please choose one of the following: - Call the Appointment Call Center at [phone] - From [employer], Go to Appointments - Request an Appt documented in this encounter [facility] 09-29-2023 Hospital Discharg e instructions Patient Education 09/29/2023 11:05:01 BMI for Adults BMI for Adults What is BMI? Body mass index (BMI) is a number that is calculated from a person's weight and height. BMI can help estimate how much of a person's weight is composed of fat. BMI does not measure body fat directly. Rather, it is an alternative to procedures that directly measure body fat, which can be difficult and expensive. BMI can help identify people who may be at higher risk for certain medical problems. What are BMI measurements used for? BMI is used as a screening tool to identify possible weight problems. It helps determine whether a person is obese, overweight, a healthy weight, or underweight. BMI is useful for: Identifying a weight problem that may be related to a medical condition or may increase the risk for medical problems. Promoting changes, such as changes in diet and exercise, to help reach a healthy weight. BMI screening can be repeated to see if these changes are working. How is BMI calculated? BMI involves measuring your weight in relation to your height. Both height and weight are measured, and the BMI is calculated from those numbers. This can be done either in [place] ([place] or metric measurements. Note that charts and online BMI calculators are available to help you find your BMI quickly and easily without having to do these calculations yourself. To calculate your BMI in [place] ([place] measurements: 1.Measure your weight in pounds (lb). 2.Multiply the number of pounds by 703. For example, for a person who weighs 180 lb, multiply that number by 703, which equals 126,540. 3.Measure your height in inches. Then multiply that number by itself to get a measurement called inches squared. For example, for a person who is 70 inches tall, the inches squared measurement is 70 inches x 70 inches, which equals 4,900 inches squared. 4.Divide the total from step 2 (number of lb x 703) by the total from step 3 (inches squared): 126,540 4,900 = 25.8. This is your BMI. To calculate your BMI in metric measurements: 1.Measure your weight in kilograms (kg). 2.Measure your height in meters (m). Then multiply that number by itself to get a measurement called meters squared. For example, for a person who is 1.75 m tall, the meters squared measurement is 1.75 m x 1.75 m, which is equal to 3.1 meters squared. 3.Divide the number of kilograms (your weight) by the meters squared number. In this example: 70 3.1 = 22.6. This is your BMI. What do the results mean? BMI charts are used to identify whether you are underweight, normal weight, overweight, or obese. The following guidelines will be used: Underweight: BMI less than 18.5. Normal weight: BMI between 18.5 and 24.9. Overweight: BMI between 25 and 29.9. Obese: BMI of 30 or above. Keep these notes in mind: Weight includes both fat and muscle, so someone with a muscular build, such as an athlete, may have a BMI that is higher than 24.9. In cases like these, BMI is not an accurate measure of body fat. To determine if excess body fat is the cause of a BMI of 25 or higher, further assessments may need to be done by a health care provider. BMI is usually interpreted in the same way for men and women. Where to find more information For more information about BMI, including tools to quickly calculate your BMI, go to these websites: Centers for Disease Control and Prevention: www.cdc.gov [place] [employer]: www.heart.org National Heart, Lung, and Blood [place]: www.nhlbi.nih.gov Summary Body mass index (BMI) is a number that is calculated from a person's weight and height. BMI may help estimate how much of a person's weight is composed of fat. BMI can help identify those who may be at higher risk for certain medical problems. BMI can be measured using Malag[place] measurements or metric measurements. BMI charts are used to identify whether you are underweight, normal weight, overweight, or obese. This information is not intended to replace advice given to you by your health care provider. Make sure you discuss any questions you have with your health care provider. Document Revised: 04/24/2020 Document Reviewed: 03/01/2020 [employer] Patient Education 2022 [employer]. 09/29/2023 11:04:59 Sinus Infection, Adult Sinus Infection, Adult A sinus infection, also called sinusitis, is inflammation of your sinuses. Sinuses are hollow spaces in the bones around your face. Your sinuses are located: Around your eyes. In the middle of your forehead. Behind your nose. In your cheekbones. Mucus normally drains out of your sinuses. When your nasal tissues become inflamed or swollen, mucus can become trapped or blocked. This allows bacteria, viruses, and fungi to grow, which leads to infection. Most infections of the sinuses are caused by a virus. A sinus infection can develop quickly. It can last for up to 4 weeks (acute) or for more than 12 weeks (chronic). A sinus infection often develops after a cold. What are the causes? This condition is caused by anything that creates swelling in the sinuses or stops mucus from draining. This includes: Allergies. Asthma. Infection from bacteria or viruses. Deformities or blockages in your nose or sinuses. Abnormal growths in the nose (nasal polyps). Pollutants, such as chemicals or irritants in the air. Infection from fungi. This is rare. What increases the risk? You are more likely to develop this condition if you: Have a weak body defense system (immune system). Do a lot of swimming or diving. Overuse nasal sprays. Smoke. What are the signs or symptoms? The main symptoms of this condition are pain and a feeling of pressure around the affected sinuses. Other symptoms include: Stuffy nose or congestion that makes it difficult to breathe through your nose. Thick yellow or greenish drainage from your nose. Tenderness, swelling, and warmth over the affected sinuses. A cough that may get worse at night. Decreased sense of smell and taste. Extra mucus that collects in the throat or the back of the nose (postnasal drip) causing a sore throat or bad breath. Tiredness (fatigue). Fever. How is this diagnosed? This condition is diagnosed based on: Your symptoms. Your medical history. A physical exam. Tests to find out if your condition is acute or chronic. This may include: ?Checking your nose for nasal polyps. ?Viewing your sinuses using a device that has a light (endoscope). ?Testing for allergies or bacteria. ?Imaging tests, such as an MRI or CT scan. In rare cases, a bone biopsy may be done to rule out more serious types of fungal sinus disease. How is this treated? Treatment for a sinus infection depends on the cause and whether your condition is chronic or acute. If caused by a virus, your symptoms should go away on their own within 10 days. You may be given medicines to relieve symptoms. They include: ?Medicines that shrink swollen nasal passages (decongestants). ?A spray that eases inflammation of the nostrils (topical intranasal corticosteroids). ?Rinses that help get rid of thick mucus in your nose (nasal saline washes). ?Medicines that treat allergies (antihistamines). ?Tcea-due-zanmbbj pain relievers. If caused by bacteria, your health care provider may recommend waiting to see if your symptoms improve. Most bacterial infections will get better without antibiotic medicine. You may be given antibiotics if you have: ?A severe infection. ?A weak immune system. If caused by narrow nasal passages or nasal polyps, surgery may be needed. Follow these instructions at home: Medicines Take, use, or apply qnae-[id number] and prescription medicines only as told by your health care provider. These may include nasal sprays. If you were prescribed an antibiotic medicine, take it as told by your health care provider. Do not stop taking the antibiotic even if you start to feel better. Hydrate and humidify Drink enough fluid to keep your urine pale yellow. Staying hydrated will help to thin your mucus. Use a cool mist humidifier to keep the humidity level in your home above 50%. Inhale steam for 10 15 minutes, 3 4 times a day, or as told by your health care provider. You can do this in the bathroom while a hot shower is running. Limit your exposure to cool or dry air. Rest Rest as much as possible. Sleep with your head raised (elevated). Make sure you get enough sleep each night. General instructions Apply a warm, moist washcloth to your face 3 4 times a day or as told by your health care provider. This will help with discomfort. Use nasal saline washes as often as told by your health care provider. Wash your hands often with soap and water to reduce your exposure to germs. If soap and water are not available, use hand reactor kettle operator. Do not smoke. Avoid being around people who are smoking (secondhand smoke). Keep all follow-up visits. This is important. Contact a health care provider if: You have a fever. Your symptoms get worse. Your symptoms do not improve within 10 days. Get help right away if: You have a severe headache. You have persistent vomiting. You have severe pain or swelling around your face or eyes. You have vision problems. You develop confusion. Your neck is stiff. You have trouble breathing. These symptoms may be an emergency. Get help right away. Call 911. Do not wait to see if the symptoms will go away. Do not drive yourself to the hospital. Summary A sinus infection is soreness and inflammation of your sinuses. Sinuses are hollow spaces in the bones around your face. This condition is caused by nasal tissues that become inflamed or swollen. The swelling traps or blocks the flow of mucus. This allows bacteria, viruses, and fungi to grow, which leads to infection. If you were prescribed an antibiotic medicine, take it as told by your health care provider. Do not stop taking the antibiotic even if you start to feel better. Keep all follow-up visits. This is important. This information is not intended to replace advice given to you by your health care provider. Make sure you discuss any questions you have with your health care provider. Document Revised: 07/07/2022 Document Reviewed: 07/07/2022 [employer] Patient Education 2022 [employer]. Follow Up Care 09/29/2023 09:12:00 With:DARWIN JONES CNP Address: [address] [place] [address] [place] [address]- When: Unknown [facility] 09-21-2023 Evaluation note Encounter Date Diagnosis Assessment Notes Sep, Obesity, unspecified (ICD-10 - E66.9) Continue weight loss efforts through diet and exercise. We did talk about the fertility and pelvic ultrasound a bit. Discussed the high probability for PCOS and how this will affect fertility, weight loss and insulin resistance in the future. Continue your efforts as they will only improve outcomes long-term. She is doing very well and is with a very happy and optimistic disposition today. I congratulated her efforts. She seems to be doing very well with the medication and on her own. Patient has clearly made a good bailee effort for several months on her own to lose weight with little success. Pt to start Adipex daily. Medication is a stimulant. May cause you to be jittery or constipated. Take in the morning, may also take stool softener daily as needed. Continue to eat a healthy well balanced diet and continue work-out regimine. Pt aware that this is not a cure for obesity but a tool used to help them during their weight loss plateau. Pt aware that they need to continue to work hard at weight loss or the weight will be regained. Side effects discussed and understood. Pt education printed and discussed. Pt notified of prescribing schedule with 30 day dispensing, no refills, for up to 12 weeks, with a 6 month break in-between treatments. If SOB, CP, mood changes, tachycardia, HTN, headaches, blurred vision occur, go to ER and Follow-up with me immediately. Sep, Body mass index [BMI] 38.0-38.9, adult (ICD-10 - Z68.38) Diagnosis code Input in order to transmit controlled prescription of Adipex as BMI is required on scripts in the state [facility]. Sep, Other *Progress note was completed with the assistance of voice recognition software for dictation purposes. Please excuse any grammatical errors that were not corrected during review process. [employer] Other 01-10-2024 Evaluation note* Encounter Date Diagnosis Assessment Notes Treatment Notes Treatment Clinical Notes Aug, BMI 39.0-39.9,adult (ICD-10 - Z68.39) Did discuss my fitness pal, as well as her time at the gym. Stressed the importance of high intensity rather than duration of exercise. Discussed chart for target heart rate for cardio. Encouraged her to continue to log foods as consistently as possible. Will follow-up in 4 weeks if desired Aug, Severe obesity (BMI >= 40) (ICD-10 - E66.01) Patient has clearly made a good bailee effort for several months on her own to lose weight with little success. Pt to start Adipex daily. Medication is a stimulant. May cause you to be jittery or constipated. Take in the morning, may also take stool softener daily as needed. Continue to eat a healthy well balanced diet and continue work-out regimine. Pt aware that this is not a cure for obesity but a tool used to help them during their weight loss plateau. Pt aware that they need to continue to work hard at weight loss or the weight will be regained. Side effects discussed and understood. Pt education printed and discussed. Pt notified of prescribing schedule with 30 day dispensing, no refills, for up to 12 weeks, with a 6 month break in-between treatments. If SOB, CP, mood changes, tachycardia, HTN, headaches, blurred vision occur, go to ER and Follow-up with me immediately. I have run an [facility] report and the patient is clear to take a controlled substance. Pt does not have a psychiatric illness or previous drug/alcohol abuse history that is concerning. Pt is responsible and well educated. I feel comfortable prescribing this medication at this time. Aug, Severe obesity (BMI >= 40) (ICD-10 - E66.01) Patient has clearly made a good bailee effort for several months on her own to lose weight with little success. Pt to start Adipex daily. Medication is a stimulant. May cause you to be jittery or constipated. Take in the morning, may also take stool softener daily as needed. Continue to eat a healthy well balanced diet and continue work-out regimine. Pt aware that this is not a cure for obesity but a tool used to help them during their weight loss plateau. Pt aware that they need to continue to work hard at weight loss or the weight will be regained. Side effects discussed and understood. Pt education printed and discussed. Pt notified of prescribing schedule with 30 day dispensing, no refills, for up to 12 weeks, with a 6 month break in-between treatments. If SOB, CP, mood changes, tachycardia, HTN, headaches, blurred vision occur, go to ER and Follow-up with me immediately. I have run an [facility] report and the patient is clear to take a controlled substance. Pt does not have a psychiatric illness or previous drug/alcohol abuse history that is concerning. Pt is responsible and well educated. I feel comfortable prescribing this medication at this time. Aug, Severe obesity (BMI >= 40) (ICD-10 - E66.01) Patient has clearly made a good bailee effort for several months on her own to lose weight with little success. Pt to start Adipex daily. Medication is a stimulant. May cause you to be jittery or constipated. Take in the morning, may also take stool softener daily as needed. Continue to eat a healthy well balanced diet and continue work-out regimine. Pt aware that this is not a cure for obesity but a tool used to help them during their weight loss plateau. Pt aware that they need to continue to work hard at weight loss or the weight will be regained. Side effects discussed and understood. Pt education printed and discussed. Pt notified of prescribing schedule with 30 day dispensing, no refills, for up to 12 weeks, with a 6 month break in-between treatments. If SOB, CP, mood changes, tachycardia, HTN, headaches, blurred vision occur, go to ER and Follow-up with me immediately. I have run an [facility] report and the patient is clear to take a controlled substance. Pt does not have a psychiatric illness or previous drug/alcohol abuse history that is concerning. Pt is responsible and well educated. I feel comfortable prescribing this medication at this time. Aug, Severe obesity (BMI >= 40) (ICD-10 - E66.01) Patient has clearly made a good bailee effort for several months on her own to lose weight with little success. Pt to start Adipex daily. Medication is a stimulant. May cause you to be jittery or constipated. Take in the morning, may also take stool softener daily as needed. Continue to eat a healthy well balanced diet and continue work-out regimine. Pt aware that this is not a cure for obesity but a tool used to help them during their weight loss plateau. Pt aware that they need to continue to work hard at weight loss or the weight will be regained. Side effects discussed and understood. Pt education printed and discussed. Pt notified of prescribing schedule with 30 day dispensing, no refills, for up to 12 weeks, with a 6 month break in-between treatments. If SOB, CP, mood changes, tachycardia, HTN, headaches, blurred vision occur, go to ER and Follow-up with me immediately. I have run an [facility] report and the patient is clear to take a controlled substance. Pt does not have a psychiatric illness or previous drug/alcohol abuse history that is concerning. Pt is responsible and well educated. I feel comfortable prescribing this medication at this time. Aug, Other *Progress note was completed with the assistance of voice recognition software for dictation purposes. Please excuse any grammatical errors that were not corrected during review process. [employer] Other 12-01-2023 Miscellaneous Notes* Telephone Encounter - Kenan Gomez - 07/16/2023 9:39 AM EST LVM to let patient know their appt has been rescheduled with Dr. Whittington. [facility]* Encounter Date Diagnosis Assessment Notes Treatment Notes Treatment Clinical Notes Jun, Severe obesity (BMI >= 40) (ICD-10 - E66.01) Patient has clearly made a good bailee effort for several months on her own to lose weight with little success. Pt to start Adipex daily. Medication is a stimulant. May cause you to be jittery or constipated. Take in the morning, may also take stool softener daily as needed. Continue to eat a healthy well balanced diet and continue work-out regimine. Pt aware that this is not a cure for obesity but a tool used to help them during their weight loss plateau. Pt aware that they need to continue to work hard at weight loss or the weight will be regained. Side effects discussed and understood. Pt education printed and discussed. Pt notified of prescribing schedule with 30 day dispensing, no refills, for up to 12 weeks, with a 6 month break in-between treatments. Id SOB, CP, mood changes, tachycardia, HTN, headaches, blurred vision occur, go to ER and Follow-up with me immediately. I have run an [facility] report and the patient is clear to take a controlled substance. Pt does not have a psychiatric illness or previous drug/alcohol abuse history that is concerning. Pt is responsibile and well educated. I feel comfortable prescribing this medication at this time. [employer] Other 10-24-2023 NoteHNO ID: [id number] Author: Francy Gan PA-C Service: ? Author Type: Physician Fleet Service Clerk Type: Progress Notes Filed: 06/08/2023 2:53 PM Note Text: CC: Tawnya Herring is 27 year old female who is self referred for dysphagia Assessment and Plan: (R13.10) Dysphagia, unspecified type (primary encounter diagnosis) (K21.9) LPRD (laryngopharyngeal reflux disease) ~flexible laryngoscope on Orpheus reveals erythema/edema of arytenoids and interarytenoid mucosa. Vocal folds move well ~continue omeprazole for another 2 months ~ordered Modified Barium Swallow Study (will need to verify she's not first before she schedules) ~I will be in touch with results via [employer] HPI: Tawnya is a 27 year old who reports troubles swallowing. 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 Her most recent TSH in January is allegedly WNL. For the past 2-3 months, she notes when she lies on her back, she feels like she can't breathe and it forces her to lie on her sides. She also has trouble swallowing solid foods. Occurs with any food at least 2-3 times a day. Occasionally will regurgitate the undigested food. She will drink a lot of water to force it down. Denies choking or aspiration. Denies inability to breathe. Feels like it gets stuck at base of throat. Denies fevers, unexplained weight loss, odynophagia, hoarseness, or hemoptysis. PCP initiated her on omeprazole 40 mg 6 weeks ago - she takes with food. ALLERGIES No Known Allergies Current Outpatient Medications Medication Sig omeprazole (PRILOSEC) 20 mg capsule Take 20 mg by mouth once daily. OZEMPIC 1 mg/dose (4 mg/3 mL) pen Administer 1mg subcutaneously once weekly levothyroxine (SYNTHROID) 75 mcg tablet Take 1 tablet by mouth once daily. citalopram (CELEXA) 20 mg tablet Take 20 mg by mouth daily at bedtime. Drospirenone-Ethinyl Estradiol 3-0.03 mg per tablet Take 1 tablet by mouth once daily. No current facility-administered medications for this visit. PAST MEDICAL HISTORY Diagnosis Date Hypothyroidism PAST SURGICAL HISTORY Procedure Laterality Date SNGL N/A 06/2019 and jul Social History: Social History Tobacco Use Smoking status: Never Passive exposure: Never Smokeless tobacco: Never Substance Use Topics Alcohol use: Never Drug use: Never FAMILY HISTORY Problem Relation Age of Onset Thyroid Maternal Grandmother Review Of Systems GENERAL: No weight loss, malaise or fevers. HEENT: Negative for frequent or significant headaches, No changes in hearing or vision, No nasal bleeding, congestion or rhinorrhea, No sore throat or change in voice, Mouth AND Throat Positive for problem with swallowing NECK: Negative for lumps, goiter, pain and significant neck swelling I have confirmed and edited as necessary the ROS obtained by others. Francy Gan PA-C PHYSICAL EXAM: Temp 36.2 ?C (97.2 ?F) LMP 07/05/2022 No weight on file for this encounter. General appearance: Well appearing, alert, in no acute distress, well-hydrated, well nourished. Cranial Nerves: III-XII: grossly intact Skin: Skin color, texture, turgor normal, no suspicious rashes or lesions Head: normocephalic, no masses, lesions, tenderness or abnormalities Ears: Bilateral external ear(s) normal, external auditory canal(s) clear, tympanic membrane(s) normal. Nose/Sinuses: Nares normal. Mucosa and the visible turbinates are normal on anterior rhinoscopy. No purulence or polyps Oral Cavity / Oropharynx: Lips, oral mucosa, hard and soft palates, tongue and posterior pharngeal wall are without lesions Neck: The neck appears symmetric without scars. On palpation, there are no masses or lymphadenopathy. The thyroid is not palpable and was free of masses. No salivary gland masses or hypertrophy is noted. Neuro: Gait normal. Mental status revealed patient to be alert and oriented. Mood is appropriate Procedure Flexible laryngoscopy was performed because of the following indication: dysphagia: After spraying the nose with 4% xylocaine and 0.5% oxymetazoline, the flexible scope was placed in a transnasal fashion. The nasopharynx, oropharynx, hypopharynx including the pyriform sinuses were normal. The base of tongue showed no gross lesions. The larynx itself showed erythema of the arytnoids and interarytnoid mucosa. The vocal cords moved well bilaterally. Francy Gan PA-C Medical Decision Making: Problems: Moderate: New problem with uncertain prognosis Data: Unique test(s) ordered: 1 Risk: Low: Low risk from testing/treatment Medical [facility]: [facility] of Present illness Narrative* Francy Gan PA-C - 06/08/2023 2:23 PM EDT CC: Tawnya Herring is 27 year old female who is self referred for dysphagia Assessment and Plan: (R13.10) Dysphagia, unspecified type (primary encounter diagnosis) (K21.9) LPRD (laryngopharyngeal reflux disease) ~flexible laryngoscope on Orpheus reveals erythema/edema of arytenoids and interarytenoid mucosa. Vocal folds move well ~continue omeprazole for another 2 months ~ordered Modified Barium Swallow Study (will need to verify she's not first before she schedules) ~I will be in touch with results via [facility] HPI: Tawnya is a 27 year old who reports troubles swallowing. 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 Her most recent TSH in January is allegedly WNL.For the past 2-3 months, she notes when she lies on her back, she feels like she can't breathe and it forces her to lie on her sides. She also has trouble swallowing solid foods. Occurs with any foodat least 2-3 times a day. Occasionally will regurgitate the undigested food. She will drink a lot of water to force it down. Denies choking or aspiration. Denies inability to breathe. Feels like it gets stuck at base of throat. Denies fevers, unexplained weight loss, odynophagia, hoarseness, or hemo ptysis. PCP initiated her on omeprazole 40 mg 6 weeks ago - she takes with food. ALLERGIES No Known Allergies Current Outpatient Medications Medication Sig omeprazole (PRILOSEC) 20 mg capsule Take 20 mg by mouth once daily. OZEMPIC 1 mg/dose (4 mg/3 mL) pen Administer 1mg subcutaneously once weekly levothyroxine (SYNTHROID) 75 mcg tablet Take 1 tablet by mouth once daily. citalopram (CELEXA) 20 mg tablet Take 20 mg by mouth daily at bedtime. Drospirenone-Ethinyl Estradiol 3-0.03 mg per tablet Take 1 tablet by mouth once daily. No current facility-administered medications for this visit. PAST MEDICAL HISTORY Diagnosis Date Hypothyroidism PAST SURGICAL HISTORY Procedure Laterality Date SNGL N/A 06/2019 and jul Social History: Social History Tobacco Use Smoking status: Never Passive exposure: Never Smokeless tobacco: Never Substance Use Topics Alcohol use: Never Drug use: Never FAMILY HISTORY Problem Relation Age of Onset Thyroid Maternal Grandmother Review Of Systems GENERAL: No weight loss, malaise or fevers. HEENT: Negative for frequent or significant headaches, No changes in hearing or vision, No nasal bleeding, congestion or rhinorrhea, No sore throat or change in voice, Mouth & Throat Positive forproblem with swallowing NECK: Negative for lumps, goiter, pain and significant neck swelling I have confirmed and edited as necessary the ROS obtained by others. Francy Gan PA-C PHYSICAL EXAM: Temp 36.2 C (97.2 F) LMP 07/05/2022 No weight on file for this encounter. General appearance: Well appearing, alert, in no acute distress, well-hydrated, well nourished. Cranial Nerves: III-XII: grossly intact Skin: Skin color, texture, turgor normal, no suspicious rashes or lesions Head: normocephalic, no masses, lesions, tenderness or abnormalities Ears: Bilateral external ear(s) normal, external auditory canal(s) clear, tympanic membrane(s) normal. Nose/Sinuses: Nares normal. Mucosa and the visible turbinates are normal on anterior rhinoscopy. Nopurulence or polyps Oral Cavity / Oropharynx: Lips, oral mucosa, hard and soft palates, tongue and posterior pharngeal wall are without lesions Neck: The neck appears symmetric without scars. On palpation, there are no masses or lymphadenopathy. The thyroid is not palpable and was free of masses. No salivary gland masses or hypertrophy is noted. Neuro: Gait normal. Mental status revealed patient to be alert and oriented. Mood is appropriate Procedure Flexible laryngoscopy was performed because of the following indication: dysphagia: After spraying the nose with 4% xylocaine and 0.5% oxymetazoline, the flexible scope was placed in a transnasal fashion. The nasopharynx, oropharynx, hypopharynx including the pyriform sinuses were normal. The base of tongue showed no gross lesions. The larynx itself showed erythema of the arytnoids and interarytnoid mucosa. The vocal cords moved well bilaterally. Francy Gan PA-C Medical Decision Making: Problems: Moderate: New problem with uncertain prognosis Data: Unique test(s) ordered: 1 Risk: Low: Low risk from testing/treatment Medical Decision Making Level: 3 - Low documented in this [facility]10-24-2023 Instructions* Patient Instructions* Francy Gan PA-C - 06/08/2023 2:16 PM EDT Continue the omeprazole for another 1.5 months documented in this [facility]10-11-2023 Evaluation note* Encounter Date Diagnosis Assessment Notes Treatment Notes Treatment Clinical Notes May, Severe obesity (BMI >= 40) (ICD-10 - E66.01) Patient has clearly made a good bailee effort for several months on her own to lose weight with little success. Pt to start Adipex daily. Medication is a stimulant. May cause you to be jittery or constipated. Take in the morning, may also take stool softener daily as needed. Continue to eat a healthy well balanced diet and continue work-out regimine. Pt aware that this is not a cure for obesity but a tool used to help them during their weight loss plateau. Pt aware that they need to continue to work hard at weight loss or the weight will be regained. Side effects discussed and understood. Pt education printed and discussed. Pt notified of prescribing schedule with 30 day dispensing, no refills, for up to 12 weeks, with a 6 month break in-between treatments. Id SOB, CP, mood changes, tachycardia, HTN, headaches, blurred vision occur, go to ER and Follow-up with me immediately. I have run an [place]AR[place] report and the patient is clear to take a controlled substance. Pt does not have a psychiatric illness or previous drug/alcohol abuse history that is concerning. Pt is responsibile and well educated. I feel comfortable prescribing this medication at this time. May, Thyromegaly (ICD-10 - E01.0) Discussed the thyromegaly, abnormal ultrasounds of the thyroid x2 and given her symptoms of persistent and worsening dysphagia, I would like to refer to another ENT for a second opinion. I will attach both ultrasounds at this time and previous progress notes. I would like her to continue the PPI for the treatment of possible reflux to rule out any sort of GI pathology for when she does report to ENT. I would like to defer swallow studies at this time as I am certain the specialty will want to order their own advanced imaging. Patient verbalizes understanding. May, Dysphagia, unspecified type (ICD-10 - R13.10) Discussed the thyromegaly, abnormal ultrasounds of the thyroid x2 and given her symptoms of persistent and worsening dysphagia, I would like to refer to another ENT for a second opinion. I will attach both ultrasounds at this time and previous progress notes. I would like her to continue the PPI for the treatment of possible reflux to rule out any sort of GI pathology for when she does report to ENT. I would like to defer swallow studies at this time as I am certain the specialty will want to order their own advanced imaging. Patient verbalizes understanding. May, Other *Progress note was completed with the assistance of voice recognition software for dictation purposes. Please excuse any grammatical errors that were not corrected during review process. [facility] Other 09-13-2023 Evaluation note* Encounter Date Diagnosis Assessment Notes Treatment Notes Treatment Clinical Notes Apr, Right flank pain (ICD-10 - R10.9) At this point I do feel the right flank pain may be musculoskeletal in nature. Discussed conservative measures and monitoring closely at home for the next 2 weeks. Discussed what symptoms would indicate underlying urologic issue. Please follow-up if symptoms persist or worsen, sooner than the 4-week follow-up. Patient verbalizes understanding and is without red flags today Apr, Hospital discharge follow-up (ICD-10 - Z09) Hospital admission, diagnostic imaging, labs, medications, diagnoses and discharge plan discussed with patient today in office. Abnormal DI/labs requiring follow-up include: CT abdomen pelvis, ER documentation and urinalysis with lab review Apr, Nephrolithiasis (ICD -10 - N20.0) Discussed the nephrolithiasis, small and benign on imaging. At this time I do not necessarily feel that she is suffering significant obstruction secondary to the calculi. Continue to monitor closely, push fluids and practice conservative measures. The neck step would be ultrasound to be repeated of the right kidney. Patient verbalizes understanding. We will defer further imaging as of today Apr, Gastroesophageal ref lux disease without esophagitis (ICD-10 - K21.9) Given the acid reflux and current difficulty swallowing, I would like her to trial 8-week course of PPI. Discussed PPI for acid reflux management. Discussed short term 8 week course vs. long term care administrator management. Discussed pros and cons of taking PPI. Discussed how stress and anxiety can exacerbate symptoms. Apr, Pharyngoesophageal dysphagia (ICD-10 - R13.14) Given the dysphagia, I do feel repeat ultrasound is warranted. Ultrasound of thyroid completed 1 year ago was reviewed in regards to this visit. Recent TSH was normal, in the fours, for wellness draw last month. Endocrinology suggested 1 year follow-up as needed. Currently taking medications as prescribed. Is compliant with the medication regimen. We will obtain images for further evaluation and follow-up in office in 4 weeks. Patient verbalizes understanding. Apr, Weight gain (ICD-10 - R63.5) Discussed the significant weight gain without changes to lifestyle, activity levels or appetite/diet. I would like to see how the ultrasound presents before moving forward. We did briefly discuss possible Adipex in the future for treatment of obesity. While I do not feel it is ever a first-line treatment for obesity, it could be supplemental in regards to her good bailee effort and lifestyle change. I discussed conservative measures for weight loss in the next 4 weeks before initiating a new medication. Patient verbalizes understanding. Apr, Other I have spent 45 minutes with this patient and over 50% of the visit was counseling done by myself, Darwin GARCÍA. *Progress note was completed with the assistance of voice recognition software for dictation purposes. Please excuse any grammatical errors that were not corrected during review process. [facility] Other 09-01-2023 Evaluation note* Encounter Date Diagnosis Assessment Notes Treatment Notes Treatment Clinical Notes Apr, Well adult exam (ICD-10 - Z00.00) We have discussed the necessity of following up with PCP regularly as well as specialists, as needed. Discussed F/U with dentistry and optometry at least yearly. Discussed all preventative measures/ cancer screenings as applicable to this patient. Emphasized the importance of a reduced fat, low carb diet to promote heart health and controlled blood sugars. Reviewed social history and ensured patient is safe within the home today. Pt denies any abuse of alcohol, nicotine, caffeine or recreational drugs. I have ensured patient is of stable mental and physical health today. We have discussed appropriate F/U schedule as well as blood work and vaccinations that apply. All questions answered and patient is sent home pleased, without concerns. TODD FROM A COMPELTED IN OFFICE TODAY, SCANNED INTO PATIENT CHART AND FAXED TO [facility]. Apr, Other We did briefly discussed the ER visit and concerns. I will need to obtain these records from [facility] as well as the imaging and follow-up regarding the ER visit and the possible thyromegaly next week. Patient verbalizes understanding. *Progress note was completed with the assistance of voice recognition software for dictation purposes. Please excuse any grammatical errors that were not corrected during review process. [facility] Other 08-08-2023 Hospital Discharge instructions Patient Education 03/22/2023 22:52:44 Urinary Tract Infection, Adult, Xjsj-de-Memr Urinary Tract Infection, Adult A urinary tract infection (UTI) is an infection of any part of the urinary tract. The urinary tractincludes: The kidneys. The ureters. The bladder. The urethra. These organs make, store, and get rid of pee (urine) in the body. What are the causes? This infection is caused by germs (bacteria) in your genital area. These germs grow and cause swelling (inflammation) of your urinary tract. What increases the risk? The following factors may make you more likely to develop this condition: Using a small, thin tube (catheter) to drain pee. Not being able to control when you pee or poop (incontinence). Being female. If you are female, these things can increase the risk: ?Using these methods to prevent : ?A medicine that kills sperm (spermicide). ?A device that blocks sperm (diaphragm). ?Having low levels of a female hormone (estrogen). ?Being . You are more likely to develop this condition if: You have genes that add to your risk. You are sexually active. You take antibiotic medicines. You have trouble peeing because of: ?A prostate that is bigger than normal, if you are male. ?A blockage in the part of your body that drains pee from the bladder. ?A kidney stone. ?A nerve condition that affects your bladder. ?Not getting enough to drink. ?Not peeing often enough. You have other conditions, such as: ?Diabetes. ?A weak disease-fighting system (immune system). ?Sickle cell disease. ?Gout. ?Injury of the spine. What are the signs or symptoms? Symptoms of this condition include: Needing to pee right away. Peeing small amounts often. Pain or burning when peeing. Blood in the pee. Pee that smells bad or not like normal. Trouble peeing. Pee that is cloudy. Fluid coming from the vagina, if you are female. Pain in the belly or lower back. Other symptoms include: Vomiting. Not feeling hungry. Feeling mixed up (confused). This may be the first symptom in older adults. Being tired and grouchy (irritable). A fever. Watery poop (diarrhea). How is this treated? Taking antibiotic medicine. Taking other medicines. Drinking enough water. In some cases, you may need to see a specialist. Follow these instructions at home: Medicines Take ifgu-zyd-cumwzvf and prescription medicines only as told by your doctor. If you were prescribed an antibiotic medicine, take it as told by your doctor. Do not stop taking it even if you start to feel better. General instructions Make sure you: ?Pee until your bladder is empty. ?Do not hold pee for a long time. ?Empty your bladder after sex. ?Wipe from front to back after peeing or pooping if you are a female. Use each tissue one time whenyou wipe. Drink enough fluid to keep your pee pale yellow. Keep all follow-up visits. Contact a doctor if: You do not get better after 1 2 days. Your symptoms go away and then come back. Get help right away if: You have very bad back pain. You have very bad pain in your lower belly. You have a fever. You have chills. You feeling like you will vomit or you vomit. Summary A urinary tract infection (UTI) is an infection of any part of the urinary tract. This condition is caused by germs in your genital area. There are many risk factors for a UTI. Treatment includes antibiotic medicines. Drink enough fluid to keep your pee pale yellow. This information is not intended to replace advice given to you by your health care provider. Make sure you discuss any questions you have with your health care provider. Document Revised: 03/14/2021 Document Reviewed: 03/14/2021 [employer] Patient Education 2022 [employer]. Follow Up Care 03/22/2023 19:54:03 With:DARWIN JONES Address: [address] [place] [address] [place] [address]- [phone] Business (1) When:03/25/2023 Comments:Follow-up with your primary care provider in 3 to 5 days. If symptoms worsen, do not improve, or new symptoms arise please report back to emergency department for further evaluation. [facility]08-07-2023 Evaluation + Plan note Diagnostic Tests Pending * Urine Culture 03/22/23 [facility]03-02-2023 Evaluation note* Encounter Date Diagnosis Assessment Notes Treatment Notes Treatment Clinical Notes Oct, Nausea & vomiting (ICD-10 - R11.2) [facility] Other 02-20-2023 Evaluation note* Encounter Date Diagnosis Assessment Notes Treatment Notes Treatment Clinical Notes Sep, Anxiety (ICD-10 - F41.9) Sep, Obesity (BMI 35.0-39.9 without comorbidity) (ICD-10 - E66.01) She continues to respond well to Ozempic at 1 mg dose without adverse side effects. She is down a total of 13.8 pounds which has exceeded our initial weight loss goal 5% (12.6 pounds). We discussed slow and steady weight loss and our second weight loss goal of 10% (25.2 pounds). Praised her for her efforts and success so far accentuating meal prep and continuing some type of physical activity that is sustainable. Continue to work with dietitian on an individualized basis for meal prep and planning needs We will follow the upcoming policy change on injectable medications for employees She denies any new information regarding her thyroid studies or changes in medication Blood pressure was on low end of normal during visit today. She denies any signs or symptoms of hypotension denying any dizziness especially upon standing, lightheadedness, fainting etc. We will continue to monitor. Patient to inform of any symptoms that arise. 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 Most recent labs were near or at therapeutic levels. We will continue to follow along with her PCP. Sep, Daytime sleepiness (ICD-10 - R40.0) Sep, Mild depression (ICD-10 - F32.9) She denies any changes in mood or severe depressive thoughts today. Continue to work on positive lifestyle changes. Sep, Encounter for weight management (ICD-10 - Z76.89) [facility] Other 02-13-2023 Miscellaneous Notes* Addendum Note - Ruby Whittington MD - 09/28/2022 2:21 PM ESTAddended by: RUBY WHITTINGTON on: 09/28/2022 02:21 PM Modules accepted: Orders * Telephone Encounter - Ruby Whittington MD - 09/28/2022 1:49 PM EST The following approved medication requests have been transmitted electronically. Requested Prescriptions Signed Prescriptions Disp Refills levothyroxine (SYNTHROID) 75 mcg tablet 90 tablet 3 Sig: Take 1 tablet by mouth once daily. Ruby Whittington MD [facility]* Encounter Date Diagnosis Assessment Notes Treatment Notes Treatment Clinical Notes Aug, Anxiety (ICD-10 - F41.9) She denies any changes in her anxiety in the last month. Aug, Obesity (BMI 35.0-39.9 without comorbidity) (ICD-10 - E66.01) Patient has responded to the Ozempic she is down a total of 8.5 pounds which is near our first goal of 5% weight loss (12.6 pounds). Praised patient for her efforts so far in improving her meal prepping and decreasing her snacks. 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 Praised her for incorporating some type of exercise and we discussed the ability to use the cardiac rehab department for exercise either before or after her shifts. Paperwork needed to get this process started was printed and handed to patient today. This is a free option available to employees. After patient provider discussion we decided to trial increasing the Ozempic to 1 mg. If side effects become intolerable or nausea excessive or leads to vomiting she is to decrease it back down to the 0.5 mg dose until follow-up. We did discuss how to do this in office today patient verbalizes understanding Encouraged to increase water intake especially if or when nausea occurs. 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 We will follow along with these labs. Aug, Daytime sleepiness (ICD-10 - R40.0) Aug, Mild depression (ICD-10 - F32.9) She denies any mood swings or severe depressive thoughts today. We discussed how physical exercise can be very helpful for both physical and mental health. Aug, Encounter for weight management (ICD-10 - Z76.89) [facility] Other 01-10-2023 Evaluation note* Encounter Date Diagnosis Assessment Notes Treatment Notes Treatment Clinical Notes Aug, Obesity (ICD-10 - E66.9) Aug, BMI 38.0-38.9,adult (ICD-10 - Z68.38) Aug, Other Summary of Visi t: (A) reviewed hunger scale and discussed snacks or alternative activities based on hunger (B) briefly discussed stress management (C) briefly discussed ways to easily add variety to meal prep using Rice [employer] as inspiration Patient set the following goals: [facility] Other 12-16-2022 Evaluation note* Encounter Date Diagnosis Assessment Notes Treatment Notes Treatment Clinical Notes Jul, Anxiety (ICD-10 - F41.9) She reports an improvement in her anxiety. Denies any other significant changes in her mood or any depressive thoughts. Jul, Obesity (BMI 35.0-39.9 without comorbidity) (ICD-10 - E66.01) Patient has responded well to Ozempic was initiated about 6 weeks ago. She is down over 5 pounds however there is some supply and demand issues with this medication from the manufacture at this time. We discussed possibility of switching to either Victoza or Wellbutrin naltrexone at follow-up visit if supply shortages continue to be an issue. Patient has dietitian visit coming up in the first couple weeks of August. Encouraged to continue to work on incorporating plate method 1-2 times more per week with a goal of 80% of the time. SecondSAMPLE of Ozempic given today. 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 She is currently on adequate supplementation and will follow up with them. Jul, Daytime sleepiness (ICD-10 - R40.0) Continue to work on good sleep hygiene and control factors that she can.This could also improve with additional water intake. Jul, Mild depression (ICD-10 - F32.9) Jul, Encounter for weight management (ICD-10 - Z76.89) [facility] Other 11-29-2022 History of Present illness Narrative* Ruby Whittington MD - 07/14/2022 9:06 AM EST Answers submitted by the patient for this visit: Endocrine Review of Systems (Submitted on 07/13/2022) Fatigue: Yes Night Sweats: No Recent Unintentional Weight Change: Yes Skin Color Changes: No Post-Nasal Drip: Yes Thyroid Pain (lower neck): No Trouble Swallowing: No Vision Disturbance: No Chest Pain: No Leg Swelling: No Blood Clots?: No Leg Pain while walking?: No Difficulty Breathing?: No Heartburn: No Nausea: No Vomiting?: No Diarrhea: No Constipation: Yes Abdominal Pain: No Bone Pain?: No Muscle Aches: No Muscle Weakness: No Joint Pain or Stiffness: No Headaches: Yes Dizziness: No Numbness?: No Urgency to Urinate?: No Increased Urination?: No Slow or Small Urine Stream?: No Are your menstrual cycles regular?: No Are your menstrual cycles irregular?: Yes Have your menstrual cycles stopped?: No Flushing?: No Hot Flashes?: No Increased Thirst: No Change in Body Hair?: No Cold Intolerance: No Heat Intolerance?: No Tawnya Herring is a 27 year old female who is presenting today July 14, 2022 for a Thyroid problem. 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 Had screening lab for work in January 2022 and TSH was 57. She was begun levothyroxine 50 mcg daily. Symptoms of brain fog and fatigue have improved but still having trouble loosing weight. TSH was still mildly elevated and dose was increased to 75 mcg but no further lab. Anti- TG antibodies 921.2 Anti peroxidase antibodies 327. Review of Systems Thyroid Pain: no Mass Effect: difficulty swallowing and local pressure Energy: improving Moods: fair Sleep: Early Insomnia Temp. Intolerance: Heat Intolerance Cardiac: NOT SIGNIFICANT CV: No history of chest pain, palpitation, orthopnea, cyanosis, pedal edema Gyne: Regular Menses on OCPs Resp: No cough, hemoptysis, asthma, recent chest infection, wheezing GI: constipation Weight: decreased, 5 lbs only Eyes: No Memory: Fair Diaphoresis: Increased. Skin: Negative M/S: negative Neuro: migraine headaches Social History: Social History Tobacco Use Smoking status: Never Passive exposure: Never Smokeless tobacco: Never Substance Use Topics Alcohol use: Never Drug use: Never Family Hx: Thyroid disease maternal GM PAST MEDICAL HISTORY Diagnosis Date Hypothyroidism Physical Exam BP 140/73 Pulse 92 Ht 170.5 cm (5' 7.13 ) Wt 111.6 kg (246 lb) LMP 07/05/2022 BMI 38.38 kg/m APPEARANCE: Well appearing, alert, in no acute distress, Obese EYES ZAINAB, extra occular movements normal NECK Supple, no adenopathy; thyroid symmetric, moderately enlarged HEART RRR with normal S1 and S2, no murmurs, no gallops but HS distant LUNGS diminished breath sounds diffusely ABD bowel sounds normoactive, no bruits, soft, non-tender, non-distended, without organomegaly or palpable masses, central adiposity, no tenderness to palpation EXTREMITIES No deformities, No skin discoloration, and No edema NEURO Awake, alert and oriented x 3, Reflexes symmetrical, and Cranial nerves II-XII grossly intact SKIN Skin color, texture, turgor normal, no suspicious rashes or lesions IMPRESSION: Consult Patient is sent at the request of Darwin Jones APRN, CNP for my opinion regarding tiffani's thyroiditis causing hypothyroidism. My final recommendations will be communicatedback to the requesting physician by way of a copy of today's office notes. Impression: 27 yo woman who developed symptoms of hypothyroidism after the of her second child and was found to be severely hypothyroid 6 months later. Initial dose of 50 mcg was not adequate although symptoms of fatigue, brain fog and neck pressure improved but Lab has not been checked on the new dose. Recommendations: Lab for TSH, free T4 today. Continue 75 mcg daily for now. RTN 1 year. Ruby Whittington MD Endocrinology Staff CC: Darwin Jones APRN, CNP. [address] [place] [id number] documented in [facility] encounter[facility] Instructions* Patient Instructions* Soo Begum Ma - 07/14/2022 8:46 AM EST Thank you for choosing the [facility] Department of Endocrinology, Diabetes and Metabolism. Did you know that you need to call 48 hours in advance of your scheduled visit, if you are unable to make your appointment? The Endocrinology and Metabolism [place] thanks you for your commitment, because patients not showing to their appointment results in a lost opportunity for patients to receive [facility] health care at the [facility]. To Cancel an appointment, please choose one of the following: - Call the Appointment Call Center at [phone] - From [employer], Go to Appointments - Cancel Appts If cancelling, consider your need to reschedule to prevent further delays in your care. To Schedule an appointment, please choose one of the following: - Call the Appointment Call Center at [phone] - From [employer], Go to Appointments - Request an Appt documented in this encounterOur [facility] Evaluation note* Encounter Date Diagnosis Assessment Notes Treatment Notes Treatment Clinical Notes Jun, Anxiety (ICD-10 - F41.9) Patient admits to increase in anxiety with most recent traumatic event with her children. We will continue to monitor. Jun, Obesity (BMI 35.0-39.9 without comorbidity) (ICD-10 - E66.01) We discussed risks and benefits of adding medication at this point. At this time after patient provider discussion we will start her on Ozempic samples and titrate her up slowly until [facility] insurance kicks in in August. We discussed use of pen and side effects to be aware of. 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 Last thyroid lab studies were trending towards normal. They are still adjusting medications to reach euthyroid Jun, Daytime sleepiness (ICD-10 - R40.0) Jun, Mild depression (ICD-10 - F32.9) Patient denies any significant changes in mood with the exception of additional anxiety which was situational. We could consider Wellbutrin as an additive medication in the future if needed. We will discuss at later date if needed. [facility] Other 10-20-2022 Evaluation note* Encounter Date Diagnosis Assessment Notes Treatment Notes Treatment Clinical Notes May, Cough (ICD-10 - R05.9) covid and flu neg, see above. May, Sore throat (ICD-10 - J02.9) Pt is to take abx and steroid as prescribed with food. Push fluids and rest. Pt is to take otc antipyretic prn for fever and aches. Pt is to take otc cough suppressant prn for cough. Pt is to be re-evaluated after tx if sx worsen or don't improve by pcp or UC. Pt is to call the office with any questions or concerns regarding dx and tx. Pt understood and agreed to tx plan. [facility] Other 10-12-2022 Evaluation note* Encounter Date Diagnosis Assessment Notes Treatment Notes Treatment Clinical Notes May, Obesity, unspecified classification, unspecified obesity type, unspecified whether serious comorbidity present (ICD-10 - E66.9) May, BMI 39.0-39.9,adult (ICD-10 - Z68.39) May, Other Summary of Visi t: (A) Presentation of Plate Method discussed (B) Sample meal ideas reviewed (C) exercise recommendations reviewed Patient set the following goals: - patient set personal goal using given handout. [facility] Other 10-10-2022 Miscellaneous Notes* Telephone Encounter - Linn Hancock - 05/25/2022 2:35 PM EDT LVM for patient that appt on 05/[address] George has been rescheduled to 07/08 at [facility] with Dr. Robertson. sending mail reminder as well. 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 This can be a weight positive medication and we will discuss alternatives at future visit. Advised to be aware of caffeine intake and decrease or eliminate her daily diet Cokes. Her PHQ-9 scored a 5 indicating mild depression although this seems more related to sleep hygiene than anything. 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 She is currently being treated with levothyroxine and values are returning to normal under the discretion of her PCP. We will continue to monitor as the thyroid can have significant effects on weight. May, Obesity (BMI 35.0-39.9 without comorbidity) (ICD-10 - E66.01) Findings consistent with obesity. Patient understands that this increases risk of multiple comorbidities associated with weight gain especially if there is a genetic component. Discussed importance of adopting a healthier lifestyle including better diet choices as well as incorporating some type of activity and exercise In order to decrease or eliminate risk of impending diseases associated with excessive weight.. Treat with weight loss Discussed treatment option and plan including adding medications now, later or never. Patient states she is ready for medications to help her out at this point as she feels that she has tried several things already on her own. Discussed risks and benefits of an injectable medication in the GLP-1 agonist class versus oral medications. After discussing side effects, and reasonable choices patient is agreeable to starting Ozempic. Discussed availability challenges from the manufacture itself as well as transit coverage however this should be something that is covered by her insurance to the best of her knowledge. Patient to call with any issues in the interim. Follow-up in May, Daytime sleepiness (ICD-10 - R40.0) Patient admits to some daytime sleepiness with an [place] score of 7. Her Mallampati is not necessarily consistent with STEFFEN. This may be partially due to poor sleep hygiene versus mild depression. Patient has not had formal sleep study, may consider in the future. Patient understands that sleep apnea significantly increases risk of cardiac issues as well as hypertension, daytime fatigue and brain fog among others. May, Mild depression (ICD-10 - F32.9) PHQ-9 indicates a score of 5 which relates to some mild depression. This may also be partially due to weight and/or poor sleep hygiene. We will can continue to monitor throughout the course of the program. 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 Will need to take this daily x8 weeks. We will refer to Endocrinology, Dr. Castillo. ENT is also on board with the referral. We did need to collaborate with ENT moving forward on this. Current parathyroid hormone as well as calcium are normal. Did review labs in office with patient. She is also on board with seeing endocrinology for further evaluation and treatment as warranted. Again much emotional and motivational support given in regards to weight gain. Likely this is much impacted by her thyroid dysfunction. I am also happy for her to start the weight management program at [facility] in the coming months.Nothing further needed from a primary care standpoint today. If she has not seen by endocrinology at the 8-week point, I encouraged her to reach out to our office and we will order thyroid labs to be redrawn for further evaluation. *Progress note was completed with the assistance of voice recognition software for dictation purposes. Please excuse any grammatical errors that were not corrected during review process. [facility] Other 07-07-2022 Hospital Discharge instructions Patient Education 02/18/2022 22:49:49 Recurrent Migraine Headache Recurrent Migraine Headache Migraines are a type of headache, and they are usually stronger and more sudden than normal headaches (tension headaches). Migraines are characterized by an intense pulsing, throbbing pain that is usually only present on one side of the head. Sometimes, migraine headaches can cause nausea, vomiting, sensitivity to light and sound, and vision changes. Recurrent migraines keep coming back (recurring). A migraine can last from 4 hours up to 3 days. What are the causes? The exact cause of this condition is not known. However, a migraine may be caused when nerves in the brain become irritated and release chemicals that cause inflammation of blood vessels. This inflammation causes pain. Certain things may also trigger migraines, such as: A disruption in your regular eating and sleeping schedule. Smoking. Stress. Menstruation. Certain foods and drinks, such as: ?Aged cheese. ?Chocolate. ?Alcohol. ?Caffeine. ?Foods or drinks that contain nitrates, glutamate, aspartame, MSG, or tyramine. Lack of sleep. Hunger. Physical exertion. Fatigue. High altitude. Weather changes. Medicines, such as: ?Nitroglycerin, which is used to treat chest pain. ? control pills. ?Estrogen. ?Some blood pressure medicines. What are the signs or symptoms? Symptoms of this condition vary for each person and may include: Pain that is usually only present on one side of the head. In some cases, the pain may be on both sides of the head or around the head or neck. Pulsating or throbbing pain. Severe pain that prevents daily activities. Pain that is aggravated by any physical activity. Nausea, vomiting, or both. Dizziness. Pain with exposure to bright lights, loud noises, or activity. General sensitivity to bright lights, loud noises, or smells. Before you get a migraine, you may get warning signs that a migraine is coming (aura). An aura may include: Seeing flashing lights. Seeing bright spots, halos, or zigzag lines. Having tunnel vision or blurred vision. Having numbness or a tingling feeling. Having trouble talking. Having muscle weakness. Smelling a certain odor. How is this diagnosed? This condition is often diagnosed based on: Your symptoms and medical history. A physical exam. You may also have tests, including: A CT scan or MRI of your brain. These imaging tests cannot diagnose migraines, but they can help torule out other causes of headaches. Blood tests. How is this treated? This condition is treated with: Medicines. These are used for: ?Lessening pain and nausea. ?Preventing recurrent migraines. Lifestyle changes, such as changes to your diet or sleeping patterns. Behavior therapy, such as relaxation training or biofeedback. Biofeedback is a treatment that involves teaching you to relax and use your brain to lower your heart rate and control your breathing. Follow these instructions at home: Medicines Take psbg-scj-ftxqetx and prescription medicines only as told by your health care provider. Do not drive or use heavy machinery while taking prescription pain medicine. Lifestyle Do not use any products that contain nicotine or tobacco, such as cigarettes and e-cigarettes. If you need help quitting, ask your health care provider. Limit alcohol intake to no more than 1 drink a day for non women and 2 drinks a day for men. One drink equals 12 oz of beer, 5 oz of wine, or 1 oz of hard liquor. Get 7 9 hours of sleep each night, or the amount of sleep recommended by your health care provider. Limit your stress. Talk with your health care provider if you need help with stress management. Maintain a healthy weight. If you need help losing weight, ask your health care provider. Exercise regularly. Aim for 150 minutes of moderate-intensity exercise (walking, biking, yoga) or 75 minutes of vigorous exercise (running, circuit training, swimming) each week. General instructions Keep a journal to find out what triggers your migraine headaches so you can avoid these triggers. For example, write down: ?What you eat and drink. ?How much sleep you get. ?Any change to your diet or medicines. Lie down in a dark, quiet room when you have a migraine. Try placing a cool towel over your head when you have a migraine. Keep lights dim, if bright lights bother you and make your migraines worse. Keep all follow-up visits as told by your health care provider. This is important. Contact a health care provider if: Your pain does not improve, even with medicine. Your migraines continue to return, even with medicine. You have a fever. You have weight loss. Get help right away if: Your migraine becomes severe and medicine does not help. You have a stiff neck. You have a loss of vision. You have muscle weakness or loss of muscle control. You start losing your balance or have trouble walking. You feel faint or you pass out. You develop new, severe symptoms. You start having abrupt severe headaches that last for a second or less, like a thunderclap. Summary Migraine headaches are usually stronger and more sudden than normal headaches (tension headaches). Migraines are characterized by an intense pulsing, throbbing pain that is usually only present on one side of the head. The exact cause of this condition is not known. However, a migraine may be caused when nerves in the brain become irritated and release chemicals that cause inflammation of blood vessels. Certain things may trigger migraines, such as changes to diet or sleeping patterns, smoking, certain foods, alcohol, stress, and certain medicines. Sometimes, migraine headaches can cause nausea, vomiting, sensitivity to light and sound, and vision changes. Migraines are often diagnosed based on your symptoms, medical history, and a physical exam. This information is not intended to replace advice given to you by your health care provider. Make sure you discuss any questions you have with your health care provider. Document Released: 04/27/2002 Document Revised: 08/05/2018 Document Reviewed: 05/14/2017 [employer] Patient Education 2020 [employer]. 02/18/2022 22:49:49 Migraine Headache Migraine Headache A migraine headache is an intense, throbbing pain on one side or both sides of the head. Migraine headaches may also cause other symptoms, such as nausea, vomiting, and sensitivity to light and noise. A migraine headache can last from 4 hours to 3 days. Talk with your doctor about what things may bring on (trigger) your migraine headaches. What are the causes? The exact cause of this condition is not known. However, a migraine may be caused when nerves in the brain become irritated and release chemicals that cause inflammation of blood vessels. This inflammation causes pain. This condition may be triggered or caused by: Drinking alcohol. Smoking. Taking medicines, such as: ?Medicine used to treat chest pain (nitroglycerin). ? control pills. ?Estrogen. ?Certain blood pressure medicines. Eating or drinking products that contain nitrates, glutamate, aspartame, or tyramine. Aged cheeses,chocolate, or caffeine may also be triggers. Doing physical activity. Other things that may trigger a migraine headache include: Menstruation. . Hunger. Stress. Lack of sleep or too much sleep. Weather changes. Fatigue. What increases the risk? The following factors may make you more likely to experience migraine headaches: Being a certain age. This condition is more common in people who are 25 55 years old. Being female. Having a family history of migraine headaches. Being . Having a mental health condition, such as depression or anxiety. Being obese. What are the signs or symptoms? The main symptom of this condition is pulsating or throbbing pain. This pain may: Happen in any area of the head, such as on one side or both sides. Interfere with daily activities. Get worse with physical activity. Get worse with exposure to bright lights or loud noises. Other symptoms may include: Nausea. Vomiting. Dizziness. General sensitivity to bright lights, loud noises, or smells. Before you get a migraine headache, you may get warning signs (an aura). An aura may include: Seeing flashing lights or having blind spots. Seeing bright spots, halos, or zigzag lines. Having tunnel vision or blurred vision. Having numbness or a tingling feeling. Having trouble talking. Having muscle weakness. Some people have symptoms after a migraine headache (postdromal phase), such as: Feeling tired. Difficulty concentrating. How is this diagnosed? A migraine headache can be diagnosed based on: Your symptoms. A physical exam. Tests, such as: ?CT scan or an MRI of the head. These imaging tests can help rule out other causes of headaches. ?Taking fluid from the spine (lumbar puncture) and analyzing it (cerebrospinal fluid analysis, or CSF analysis). How is this treated? This condition may be treated with medicines that: Relieve pain. Relieve nausea. Prevent migraine headaches. Treatment for this condition may also include: Acupuncture. Lifestyle changes like avoiding foods that trigger migraine headaches. Biofeedback. Cognitive behavioral therapy. Follow these instructions at home: Medicines Take qddv-bgj-bbsvagp and prescription medicines only as told by your health care provider. Ask your health care provider if the medicine prescribed to you: ?Requires you to avoid driving or using heavy machinery. ?Can cause constipation. You may need to take these actions to prevent or treat constipation: ?Drink enough fluid to keep your urine pale yellow. ?Take drja-zpc-lqgvqmp or prescription medicines. ?Eat foods that are high in fiber, such as beans, whole grains, and fresh fruits and vegetables. ?Limit foods that are high in fat and processed sugars, such as fried or sweet foods. Lifestyle Do not drink alcohol. Do not use any products that contain nicotine or tobacco, such as cigarettes, e- cigarettes, and chewing tobacco. If you need help quitting, ask your health care provider. Get at least 8 hours of sleep every night. Find ways to manage stress, such as meditation, deep breathing, or yoga. General instructions Keep a journal to find out what may trigger your migraine headaches. For example, write down: ?What you eat and drink. ?How much sleep you get. ?Any change to your diet or medicines. If you have a migraine headache: ?Avoid things that make your symptoms worse, such as bright lights. ?It may help to lie down in a dark, quiet room. ?Do not drive or use heavy machinery. ?Ask your health care provider what activities are safe for you while you are experiencing symptoms. Keep all follow-up visits as told by your health care provider. This is important. Contact a health care provider if: You develop symptoms that are different or more severe than your usual migraine headache symptoms. You have more than 15 headache days in one month. Get help right away if: Your migraine headache becomes severe. Your migraine headache lasts longer than 72 hours. You have a fever. You have a stiff neck. You have vision loss. Your muscles feel weak or like you cannot control them. You start to lose your balance often. You have trouble walking. You faint. You have a seizure. Summary A migraine headache is an intense, throbbing pain on one side or both sides of the head. Migraines may also cause other symptoms, such as nausea, vomiting, and sensitivity to light and noise. This condition may be treated with medicines and lifestyle changes. You may also need to avoid certain things that trigger a migraine headache. Keep a journal to find out what may trigger your migraine headaches. Contact your health care provider if you have more than 15 headache days in a month or you develop symptoms that are different or more severe than your usual migraine headache symptoms. This information is not intended to replace advice given to you by your health care provider. Make sure you discuss any questions you have with your health care provider. Document Released: 08/02/2006 Document Revised: 11/24/2019 Document Reviewed: 09/14/2019 [employer] Patient Education 2020 [employer]. Follow Up Care 02/18/2022 20:32:17 [facility] Address: [address] [place] [phone] Business (1) When:Within 3 Day(s) [facility]07-06-2022 Evaluation + Plan noteExtracted from: Title:ED Note Author:Linn Yusuf PA-C e:02/18/22 1. Headache (R51.9: Headache , unspecified) Orders: diphenhydrAMINE, 25 mg = 1 cap(s), Oral, TID, PRN Headache, Take medication with the Reglan for treatment of migraine headache, X 3 day(s), # 15 cap(s), Refills(s) 0 diphenhydrAMINE, 25 mg = 0.5 mL, Injection, IV Push, Once, Stop date 02/18/22 20:40:00 EDT, STAT, Start date 02/18/22 20:40:00 EDT, 02/18/22 20:40:00 EDT ketorolac, 15 mg = 1 mL, Injection, IV Push, Once, Stop date 02/18/22 21:41:00 EDT, STAT, Start date 02/18/22 21:41:00 EDT, 02/18/22 21:41:00 EDT metoclopramide, 5 mg = 1 tab(s), Oral, q8hr, PRN Headache, Take with Benadryl for treatment of migraine headache, X 3 day(s), # 9 tab(s), Refills(s) 0 metoclopramide, 5 mg = 1 mL, Injection, IV Push, Once, Stop date 02/18/22 20:40:00 EDT, STAT, Start date 02/18/22 20:40:00 EDT, 02/18/22 20:40:00 EDT orphenadrine, 60 mg = 2 mL, Injection, IV Push, Once, Stop date 02/18/22 20:40:00 EDT, STAT, Start date 02/18/22 20:40:00 EDT, 02/18/22 20:40:00 EDT orphenadrine, 100 mg = 1 tab(s), Oral, BID, PRN Headache, Take as needed for headache. This is a muscle relaxant medication for help with tension headache., X 3 day(s), # 6 tab(s), Refills(s) 0 Sodium Chloride 0.9% intravenous solution 1,000 mL, 1,000 mL, IV, Bolus, for 30 day(s), Stop date 03/20/22 20:39:00 EDT, STAT, Start date 02/18/22 20:40:00 EDT, Total volume (mL): 1,000, 107 kg, 2.25, m2 CT Head or Brain w/o Contrast 26-year-old female presents to the ED complaining of headache. History of migraines over the last month but this headache is more severe than previous. In the ED patient is afebrile, vital signs are stable, no acute distress. No nuchal rigidity or meningeal signs on exam. Not thunderclap headache in nature, no neurological deficit on exam. CT head shows no acute process. Patient treated with Reglan, Benadryl, Norflex with improvement of her headache. On reexamination patient is resting comfortably in bed. She is treated further with Toradol with resolution of her headache. Results are discussed at length the patient. She is discharged home with instructions to follow-up with her PCP and is to return to the ED with any new or worsening symptoms. Patient voices understanding and is agreeable to plan. 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 Take 1 hour before or 2 hours after meals daily.Will need to recheck labs in 6 to 8 weeks. Will put her in the reminder file to call and remind her of lab draw at [facility]. Feb, Thyromegaly (ICD-10 - E01.0) Discussed thyroid ultrasound at length. Will refer to ENT for further evaluation and possible biopsy. Patient is agreeable to this. She is negative for all red flags today and does not require emergent intervention. Feb, Pharyngeal dysphagia (ICD-10 - R13.13) Previously reported some dysphagia which Is now likely secondary secondary to thyromegaly. Will assess further by ENT. Feb, Hypothyroidism, unspecified type (ICD-10 - E03.9) Feb, Other Follow-up in 8 weeks virtually to discuss symptoms, medication, lab review, and ENT visit. *Progress note was completed with the assistance of voice recognition software for dictation purposes. Please excuse any grammatical errors that were not corrected during review process. [employer] Other 07-01-2022 History general Narrative - Reported* Type Description Date Medical History Anxiety Medical History pericardi tis- Resolved cardiology signed off Medical History Kidney stones during Medical History Tiffani's disease February 2022 Medical History Abnormal thyroid ult rasound February 2022 work-up pending by ENT Surgical History 2019 Surgical History Cystoscopy 05/2021 Surgical History 2020 Hospitalization History See surgical hx [employer] Other 07-01-2022 History general Narrative - Reported* Type Description Date Medical History Anxiety Medical History pericardi tis- Resolved cardiology signed off Medical History Kidney stones during Medical History Tiffani's disease February 2022 Medical History Abnormal thyroid ult rasound February 2022 work-up pending by ENT Medical History Parathyroid adenoma Surgical History 2018 Surgical History Cystoscopy 05/2021 Surgical History 2020 Hospitalization History See surgical hx [employer] Other 06-29-2022 Evaluation note* Encounter Date Diagnosis Assessment Notes Treatment Notes Treatment Clinical Notes Jan, Hypothyroidism, unspecified type (ICD-10 - E03.9) Discussed at length. Discussed her current symptoms and the need for further work-up through labs. We will likely initiate levothyroxine at her next visit based on results. Also does require ultrasound of the thyroid due to substantially elevated TSH as well as mild thyromegaly and dysphagia. Jan, Thyromegaly (ICD-10 - E01.0) Discussed at length. Discussed her current symptoms and the need for further work-up through labs. We will likely initiate levothyroxine at her next visit based on results. Also does require ultrasound of the thyroid due to substantially elevated TSH as well as mild thyromegaly and dysphagia. Jan, Other We have discuss ed the necessity of following up with PCP regularly as well as specialists, as needed. Discussed F/U with dentistry and optometry at least yearly. Discussed all preventative measures/ cancer screenings as applicable to this patient. Emphasized the importance of a reduced fat, low carb diet to promote heart health and controlled blood sugars. Reviewed social history and ensured patient is safe within the home today. Pt denies any abuse of alcohol, nicotine, caffeine or recreational drugs. I have ensured patient is of stable mental and physical health today. We have discussed appropriate F/U schedule as well as blood work and vaccinations that apply. All questions answered and patient is sent home pleased, without concerns. Pillar form a completed in office today. She does not pass BMI. Patient is aware that this will be a problem focused visit due to abnormal thyroid levels And the need for work-up. *Progress note was completed with the assistance of voice recognition software for dictation purposes. Please excuse any grammatical errors that were not corrected during review process. 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 [facility] Diagnosis 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 [facility]* Diagnosis Dysphagia, unspecified type- Primary LPRD (laryngopharyngeal reflux disease) Other diseases of larynx [facility] this [facility] Diagnosis Onset Date Resolution Status Obesity [facility] Work Phone: Evaluation note* Diagnosis 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 Irregular menstruation, unspecified Female infertility Female infertility of unspecified origin Calculus of kidney documented [facility] this encounter [facility] Diagnosis Onset Date Resolution Status Obesity acute Class 2 obesity with body ma ss index (BMI) of 37.0 to 37.9 in adult [facility] Work Phone: evaluation note* Diagnosis Onset Date Resolution Status Obesity acute Class 2 obesity with body ma ss index (BMI) of 37.0 to 37.9 in adult acute Class 2 obesity with body ma ss index (BMI) of 37.0 to 37.9 in adult [facility] Work Phone: Evaluation note* Diagnosis Onset Date Resolution Status Class 2 obesity with body ma ss index (BMI) of 37.0 to 37.9 in adult acute Class 2 obesity with body ma ss index (BMI) of 37.0 to 37.9 in adult acute [facility] Work Phone: [facility] general Narrative - Reported* Type Description Date Medical History pericardi tis- Resolved cardiology signed off Medical History Kidney stones during Medical History Parathyroid adenoma Medical History Anxiety Medical History Tiffani's disease Medical History Depression Medical History Obesity Medical History GERD (gastroesophageal reflux di sease) Medical History Hypothyroidism Medical History Thyromegaly Surgical History 2019 Surgical History Cystoscopy 05/2021 Surgical History 2020 Hospitalization History See surgical [employer] Other [employer] general Narrative - Reported* Type Description Date Medical History Parathyroid adenoma Medical History Anxiety Medical History Tiffani's disease Medical History Depression Medical History Obesity Medical History GERD (gastroesophageal reflux di sease) Medical History Hypothyroidism Medical History Thyromegaly Medical History Daytime sleepiness Medical History Pharyngeal dysphagia Medical History Nephrolithiasis Medical History cardiomyopathy Surgical History 2019 Surgical History Cystoscopy 05/2021 Surgical History 2020 Hospitalization History See surgical [employer] Other [facility] general Narrative - Reported* Type Description Date Medical History pericardi tis- Resolved cardiology signed off Medical History Parathyroid adenoma Medical History Anxiety Medical History Tiffani's disease Medical History Depression Medical History Obesity Medical History GERD (gastroesophageal reflux di sease) Medical History Hypothyroidism Medical History Thyromegaly Medical History Daytime sleepiness Medical History Pharyngeal dysphagia Medical History Nephrolithiasis Medical History cardiomyopathy Surgical History 2019 Surgical History Cystoscopy 05/2021 Surgical History 2020 Hospitalization History See surgical [employer] Other History of Present illness Narrative* Patient is self- referred for evaluation and/or management of chest pain. She went to the emergency room several weeks after having a term delivery that was otherwise uncomplicated. 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 She underwent CT angiogram which ruled out pulmonary embolism but she was advised that she had a pericardial effusion. They also suggested she might have pericarditis and because of this, on her own, she started taking ibuprofen with significant improvement in her symptomatology. * Today we are not in receipt of the CAT scan. Advised her that more than likely she has a normal amount of pericardial fluid that was deemed an effusion. This is a common phenomenon and explained to her in detail. I proposed to her that more than likely the pericardial fluid was not a true effusion and consequently I am doubtful that any intervention is necessary. * We discussed, though, her chest pain. I proposed to her could be postviral and she offers, thereafter, that she had a viral illness about 6 weeks before this event. I advised her this is classic timeframe for pericarditis following a viral illness. Around that time she was tested 3 times for COVID-19 all of which were negative including 2 PCR test. * In light of all the above I suggested she continue ibuprofen. I promised her I would review her CATscan if there were abnormalities necessitating action and or intervention I would contact her and we did reconfirm her and her reconvene. Otherwise I advised her that no other testing or intervention appears necessary. [facility] [employer] DO Work Phone: Hospital course Narrative No data available for this section [facility] No data available for this section [facility] (n[facility]ative)* Reason Dr. Castillo in [facility] Please send last 2 progress notes, Thyroid labs, US of thryoid and ENT progress notes with referral Diagnosis 1 Tiffani's disease (E06.3) Referral Organization [facility] Referring Provider First Name Darwin Referring Provider Last Name [facility] Referring Provider Specialty Nurse Pract itioner Referred Provider Specialty Endocrinolog y Referral Priority Routine [facility] [employer] Other Reason for referral (narrative)* Diagnostic Procedure Only (Routine) - Pending Review Specialty Diagnoses / Procedures Referred By Clint scott Referred To Contact XR IMAGING Diagnoses Dysphagia, unspecified type Procedures XR MODIFIED BARIUM SWALLOW W SPEECH THERAPY RADIOLOGIC EXAM SWALLOW FUNCTION CONTRAST STUDY Francy Gan PA-C [address] [place] [address] [place] [id number] Referral ID Status Reason Start Date Expiration Date Visits Requested Visits Authorized [id number] Pending Review Auto-Generat ed Referral 3 07/07/2024 1 1 [facility] Chief Complaint TAWNYA HERRING is being seen for follow-up of a hospitalization for. Family History No Family History Records FoundUnknown Family Member Name Dates Details No pertinent family history: Mother, Father, Sibling(V49.89, Z78.9) Status:Active Unknown Family Member Name Dates Details No pertinent family history: Mother, Father, Sibling(V49.89, Z78.9) Status:Active Relationship Condition Age at Onset Recorded Date/T tova father Hypertension Unknown Summary Purpose Advance Directives No Advanced Directives Records Found Advance Directive Response Recorded Date/ Time Advance Directives No June 17, 2020 1:51pm Advance Directive Response Recorded Date/ Time Advance Directives No June 17, 2020 12:51pm Chief Complaint and Reason for Visit Chief Complaint Pillars Chief Complaint Pillars E01.0 e04.1 E03.9 Chief Complaint Obesity R11.2 Chief Complaint Obesity R11.2 E03.9 Chief Complaint E03.9 exposure Chief Complaint exposure pillars R side back pain Chief Complaint pillars R side back pain Chief Complaint pillars R side back pain Pillars Chief Complaint pillars R side back pain Pillars R13.14 Chief Complaint 1 Month Follow Up 1 Month Follow Up N97.9 Chief Complaint 1 Month Follow Up N97.9 1 month n97.9 Reason for Visit Obesity Chief Complaint N97.9 1 month n97.9 1 month follow up Reason for Visit Obesity Class 2 obesity with body mass index (BMI) of 37.0 to 37.9 in adult Chief Complaint N97.9 1 month n97.9 1 month follow up n97.9 Reason for Visit Obesity Class 2 obesity with body mass index (BMI) of 37.0 to 37.9 in adult Chief Complaint N97.9 1 month n97.9 1 month follow up n97.9 1 month Reason for Visit Obesity Class 2 obesity with body mass index (BMI) of 37.0 to 37.9 in adult Chief Complaint N97.9 1 month n97.9 1 month follow up n97.9 1 month N97.9 Reason for Visit Obesity Class 2 obesity with body mass index (BMI) of 37.0 to 37.9 in adult Class 2 obesity with body mass index (BMI) of 37.0 to 37.9 in adult Chief Complaint n97.9 1 month follow up n97.9 1 month N97.9 N97.9 Reason for Visit Class 2 obesity with body mass index (BMI) of 37.0 to 37.9 in adult Class 2 obesity with body mass index (BMI) of 37.0 to 37.9 in adult Chief Complaint n97.9 1 month follow up n97.9 1 month N97.9 N97.9 1 month Reason for Visit Class 2 obesity with body mass index (BMI) of 37.0 to 37.9 in adult Class 2 obesity with body mass index (BMI) of 37.0 to 37.9 in adult Chief Complaint n97.9 1 month N97.9 N97.9 1 month N97.0 Reason for Visit Class 2 obesity with body mass index (BMI) of 37.0 to 37.9 in adult Class 2 obesity with body mass index (BMI) of 37.0 to 37.9 in adult Reason for Referral Reason ENT- [facility]- thyromegal y/abnormal US/dysphagia Diagnosis 1 Dysphagia, unspecifi ed type (R13.10) [facility] Referring Provider First Name Darwin Referring Provider Last Name [facility] Referring Provider Specialty Nurse Pract itioneheladio Referred Organization [facility] Referred Address [address] [place], [place],[address] Referred Provider Specialty Ear, Nose an d Throat Referral Priority Routine Reason ABNORMAL US OF THYRO ID Newly discovered [employer] Diagnosis 1 Thyromegaly (E01.0) [facility] [place] Referring Provider First Name Darwin Referring Provider Last Name [facility] Referring Provider Specialty Nurse Pract itioneheladio Referred Provider Specialty Ear, Nose an d Throat Referral Priority Routine Additional Source Comments INFORMATION SOURCE (unrecogn ized section and content) DATE CREATED AUTHOR 09/04/2021 [facility] DATE CREATED AUTHOR AUTHOR'S ORGANIZ ATION 12/18/2022 [facility] DATE CREATED AUTHOR AUTHOR'S ORGANIZ ATION 11/22/2023 [facility] DATE CREATED AUTHOR AUTHOR'S ORGANIZ ATION 03/06/2024 [facility] DATE CREATED AUTHOR AUTHOR'S ORGANIZ ATION 03/20/2024 [facility] DATE CREATED AUTHOR AUTHOR'S ORGANIZ ATION 03/23/2024 [facility] Care Teams (unrecognized sec tion and content) Team Status: Active Member Role Status Dates Darwin Jones APRN Primary Care Provider Active Team Status: Inactive Member Role Status Dates Darwin Jones APRN Primary Care Provider Active Start: October 01, 2023 End: October 01, [address] Attending Provider Active Start: Tamiko mcgrath 2023 End: October 01, 2023 Team Status: Inactive Member Role Status Dates Darwin Jones APRN Primary Care Pr ovider, Attending Provider Active Start: October 20, 2023 End: October 20, 2023 Team Status: Inactive Member Role Status Dates Darwin Jones APRN Primary Care Provider Active Start: November 01, 2023 End: November 01, [address] Attending Provider Active Start: [facility] 2023 End: November 01, 2023 Team Status: Inactive Member Role Status Dates Darwin Jones APRN Primary Care Pr ovider, Attending Provider Active Start: November 25, 2023 End: November 25, 2023 Team Status: Inactive Member Role Status Dates Darwin Jones APRN Primary Care Provider Active Start: November 30, 2023 End: November 30, [address] Attending Provider Active Start: [facility] 2023 End: November 30, 2023 Team Status: Active Member Role Status Dates Provider Conversion Attending Provider Active St art: August 30, 2023 Team Status: Inactive Member Role Status Dates Darwin Jones APRN Primary Care Provider Active DO JA Patel Attending Provider Active Team Status: Inactive Member Role Status Dates Darwin Jones APRN Primary Care Provider Active Brain Way Attending Provider Active Team Status: Active Member Role Status Dates Darwin Jones APRN Primary Care Provider Active Ofelia Hester APRN Active Ofelia Hester APRN Attending Provider Active Team Status: Inactive Member Role Status Dates Darwin Jones APRN Primary Care Provider Active Ofelia Hester APRN Attending Provider Active Team Status: Inactive Member Role Status Dates PHYSICIAN NO FAMILY Primary Care Provider Active Addi Ortega DO [facility] Attending Provider Active Team Status: Active Member Role Status Dates PHYSICIAN NO FAMILY Primary Care Provider Active Team Status: Inactive Member Role Status Dates Darwin Jones APRN Primary Care Provider, Attend ing Provider Active Team Status: Inactive Member Role Status Dates Darwin Jones APRN Primary Care Provider Active Saad Valera DO Attending Provider Active Perianesthesia Manager Relationship Specialty Start Date End Date Darwin Jones, CANNERY TENDER ENGINEER [address] [facility] [place] [address] Referring Family Medicine 04/22/22 Perianesthesia Manager Relationship Specialty Start Date End Date Darwin Jones, CANNERY TENDER ENGINEER [address] [address] Referring Family Medicine 04/22/22 Team Status: Inactive Member Role Status Dates Darwin Jones APRN Primary Care Provider Active Jeovanny Quiros DO Emergency Provider Active Perianesthesia Manager Relationship Specialty Start Date End Date Darwin Jones, CANNERY TENDER ENGINEER [address] [facility] [address] [address] Referring Family Medicine 04/22/22 Perianesthesia Manager Relationship Specialty Start Date End Date Darwin Jones, CANNERY TENDER ENGINEER [address] [address] Referring Family Medicine 04/22/22 Team Status: Inactive Member Role Status Dates Darwin Jones APRN Attending Provider Active Start: July 23, 2023 End: July 23, 2023 Team Status: Inactive Member Role Status Dates Darwin Jones APRN Attending Provider Active Start: August 25, 2023 End: August 25, 2023 Perianesthesia Manager Relationship Specialty Start Date End Date Darwin Jones, CANNERY TENDER ENGINEER [address] [address] Referring Family Medicine 04/22/22 Team Status: Inactive Member Role Status Dates Darwin Jones APRN Primary Care Pr ovider, Attending Provider Active Start: December 24, 2023 End: December 24, 2023 Team Status: Inactive Member Role Status Dates Darwin Jones APRN Primary Care Provider Active Start: December 27, 2023 End: December 27, 2023 Brainjonathan Chiango Attending Provider Active Start: 2023 End: December 27, 2023 Team Status: Inactive Member Role Status Dates Darwin Jones APRN Primary Care Provider Active Start: January 24, 2024 End: January 24, 2024 Brainjonathan Chiango Attending Provider Active Start: 2023 End: January 24, 2024 Team Status: Inactive Member Role Status Dates Darwin Jones APRN Primary Care Pr ovider, Attending Provider Active Start: January 25, 2024 End: January 25, 2024 Team Status: Inactive Member Role Status Dates Darwin Jones APRN Primary Care Provider Active Start: November 30, 2023 End: November 30, [address] , DO Attending Provider Active Start : November 30, 2023 End: November 30, 2023 Team Status: Inactive Member Role Status Dates Darwin Jones APRN Primary Care Provider Active Start: December 27, 2023 End: December 27, [address] , DO Attending Provider Active Start : December 27, 2023 End: December 27, 2023 Team Status: Inactive Member Role Status Dates Darwin Jones APRN Primary Care Provider Active Start: January 24, 2024 End: January 24, 2024 Brainjonathan Chiango , DO Attending Provider Active Start : January 24, 2024 End: January 24, 2024 Team Status: Inactive Member Role Status Dates Darwin Jones APRN Primary Care Provider Active Start: February 24, 2024 End: February 24, 2024 Brain Seamus , DO Attending Provider Active Start : February 24, 2024 End: February 24, 2024 Goals (unrecognized section and content) Goals may be documented in a n alternate sectionNo InformationNo Information No data available for this sectionNo InformationNo InformationNo InformationGoals may be documented in an alternate sectionNo InformationNo InformationNo InformationNo InformationNo InformationNo InformationNo InformationNo InformationNo InformationNo InformationNo InformationNo InformationNo InformationNo InformationNo InformationGoals may be documented in an alternate sectionNo InformationNo InformationNo InformationNo InformationGoals may be documented in an alternate sectionGoals may be documented in an alternate sectionGoals may be documented in an alternate section No data available for this sectionGoals may be documented in an alternate sectionGoals may be documented in an alternate sectionNo InformationNo InformationGoals may be documented in an alternate sectionNo InformationNo InformationNo Information No data available for this sectionGoals may be documented in an alternate sectionNo InformationGoals may be documented in an alternate sectionGoals may be documented in an alternate sectionGoals may be documented in an alternate sectionGoals may be documented in an alternate sectionGoals may be documented in an alternate sectionGoals may be documented in an alternate sectionGoals may be documented in an alternate sectionGoals may be documented in an alternate section No data available for this section REASON FOR VISIT (unrecogniz ed section and content) Reason Comments Appointment LVM for patient that appt on 05/[address] George has been rescheduled to 07/08 at [facility] with Dr. Robertson. sending mail reminder as well. Reason Comments Thyroid Problem Reason Comments Consult Reason Comments Appointment Source Comments (unrecognize d section and content) In the event this informatio n is protected by the Federal Confidentiality of Alcohol and Drug Abuse Patient Records regulations: The Federal rules restrict any use of the information to criminally investigate or prosecute any alcohol or drug abuse patient.[facility] the event this information is protected by the Federal Confidentiality of Alcohol and Drug Abuse Patient Records regulations: The Federal rules restrict any use of the information to criminally investigate or prosecute any alcohol or drug abuse patient.[facility]In the event this information is protected by the Federal Confidentiality of Alcohol and Drug Abuse Patient Records regulations: The Federal rules restrict any use of the information to criminally investigate or prosecute any alcohol or drug abuse patient.[facility] [place]In the event this information is protected by the Federal Confidentiality of Alcohol and Drug Abuse Patient Records regulations: The Federal rules restrict any use of the information to criminally investigate or prosecute any alcohol or drug abuse patient.[facility] [place]In the event this information is protected by the Federal Confidentiality of Alcohol and Drug Abuse Patient Records regulations: The Federal rules restrict any use of the information to criminally investigate or prosecute any alcohol or drug abuse patient.[facility] AndersonIn the event this information is protected by the Federal Confidentiality of Alcohol and Drug Abuse Patient Records regulations: The Federal rules restrict any use of the information to criminally investigate or prosecute any alcohol or drug abuse patient.[facility] [place] FOR RECORDS PERTAINING TO PATIENTS WHO ARE OR HAVE BEEN ENROLLED IN A CHEMICAL DEPENDENCY/SUBSTANCEABUSE PROGRAM, SOME INFORMATION MAY BE OMITTED. This clinical summary was aggregated from multiple sources. Caution should be exercised in using it in the provision of clinical care. This summary normalizes information from multiple sources, and as a consequence, information in this document may materially change the coding, format and clinical context of patient data. In addition, data may be omitted in some cases. CLINICAL DECISIONS SHOULD BE BASED ON THE PRIMARY CLINICAL RECORDS. [facility] [facility]. provides no warranty or guarantee of the accuracy or completeness of information in this document.
== END 2024-03-23 08:06 | disposition home or self-care (01) ==
LOC: NOMS 08:06
PROVIDERS: Visit Provider Obstetrics & Gynecology
DX: O36.80X0 Pregnancy with inconclusive fetal viability, not applicable or unspecified (principal); Z3A.01 Less than 8 weeks gestation of pregnancy
CPT/HCPCS: 76817

== ENCOUNTER 2024-04-13 10:27 | Outpatient (OUT) | payer OTHER, SELFPAY ==
[2024-04-13 10:55] LABS: Basophils Percent Auto 0.3 % (0.2-2.0); Eosinophils Percent Auto 0.4 % (0.9-7.0); Hematocrit 37.3 % (36.0-48.0); Hemoglobin 13.3 g/dL (12.0-16.0); Immature Granulocytes Abs Auto 0.02 10^3/uL (0.00-0.03); Immature Granulocytes Pct Auto 0.3 % (0.0-0.5); Lymphocytes Absolute Auto 2.3 10^3/uL (1.2-3.8); Lymphocytes Percent Auto 30.9 % (20.5-60.0); Mean Corpuscular HGB Conc 35.7 g/dL (29.9-35.2); Mean Corpuscular Hemoglobin 32.8 pg (26.7-34.0); Mean Corpuscular Volume 92.1 fL (81.0-99.0); Mean Platelet Volume 9.9 fL (9.5-13.5); Monocytes Absolute Auto 0.4 10^3/uL (0.3-0.8); Monocytes Percent Auto 4.7 % (1.7-12.0); Neutrophils Absolute Auto 4.7 10^3/uL (1.4-6.5); Neutrophils Percent Auto 63.4 % (43.0-75.0); Platelet Count 292 10^3/uL (150-450); Red Blood Count 4.05 10^6/uL (4.20-5.40); Red Cell Distribution Width 11.9 % (11.0-15.0); White Blood Count 7.4 10^3/uL (4.0-11.0)
[2024-04-13 11:19] LABS: Estimated Average Glucose 85 mg/dL; Glycohemoglobin A1C 4.6 % (4.5-6.2)
[2024-04-13 11:39] LABS: Thyroid Stimulating Hormone 2.261 uIU/mL (0.358-3.740)
[2024-04-14 08:12] LABS: HBsAg Screen Negative (Negative); HCV Ab Non Reactive (Non Reactive); HIV Ab/p24 Ag Screen Non Reactive (Non Reactive); Rubella Antibodies, IgG 1.33 index (Immune >0.99)
[2024-04-14 10:09] LABS: Rapid Plasma Reagin, Quant Non Reactive titer (NonRea<1:1)
== END 2024-04-13 10:28 | disposition home or self-care (01) ==
LOC: LAB 10:28
PROVIDERS: Visit Provider Obstetrics & Gynecology
DX: O20.9 Hemorrhage in early pregnancy, unspecified (principal); O99.210 Obesity complicating pregnancy, unspecified trimester; Z3A.00 Weeks of gestation of pregnancy not specified
CPT/HCPCS: 36415; 83036; 84443; 85025; 86592; 86762; 86803; 86850; 86900; 86901; 87086; 87340; 87389

== ENCOUNTER 2024-04-20 19:27 | Outpatient (REF) | payer OTHER, SELFPAY ==
--- OUTSIDE RECORDS SUMMARY | 2024-04-20 19:35 | XMS_ITS | CCD ---
Author Organization [facility] Care Team Providers Care Child Protective Services Social Worker Name Role Phone Unknown, Unknown Unavailable Unavailable Unavailable Unavailable NO FAMILY, PHYSICIAN Primary Care Provider Unava ilable DO Addi Ortega Attending Provider [phone] Darwin Jones Unavailable DARWIN JONES Primary Care Physician Lilly Luke Unavailable SHIRLEY Jones Primary Care Provider SHIRLEY Jones Attending Provider [phone] DO Saad Valera Attending Provider Ofelia Hester Unavailable [facility] AMIE Darwin Unavailable Sima Ross Unavailable [facility] AMIE, Darwin Unavailable [phone] SHIRLEY Jones Primary Care Provider [phone] SHIRLEY Hester Attending Provider SHIRLEY Jones Primary Care Provider [phone] SHIRLEY Hester Attending Provider [phone] Attending Provider [phone] REQUEST, DR HOBSON LISTED Primary Care Unavaila mari WAY ., DR YEUNG Attending Unavailable SEAMUS ., DR YEUNG Consulting Unavailable SEAMUS ., DR YEUNG Admitting Unavailable SIHRLEY Jones Primary Care Provider DO Addi Ortega [facility]ending Provider [facility] DO Jeovanny Quiros [facility] Provider DO Addi Ortega Attending Provider [facility] SHIRLEY Anaya Attending Provider [facility] Provider [address] Attending Provider [facility] SHIRLEY Anaya Primary Care Provider Brain [address] Attending Provider [phone] RUBY WHITTINGTON Attending Unavailable FRANCY GAN Attending Unavailable [facility] Primary Care Provider [phone] Attending Provider [phone] [facility] [phone] Attending Provider [place] Attending Unavailable Gabriel Curtis Attending Unavailable [place] Attending Unavailable [place] Attending Unavailable [facility] Provider DO Brain [address] Attending Provider Shannon DO Addi PERES Attending Provider Brain Way Admitting Unavailable [facility] Unavailable [facility] Attending Unavailable [address] Admitting Unavailable [facility] Unavailable [facility]ending [facility] Un[facility]ending Un[facility] Admitting [facility] Attending Unavailable Seamus, Brain Admitting Unavailable Darwin Jones Primary Care Unavailable Seamus, Brain Attending Unavailable [facility] bro[facility] Primary Care Unavailable [facility] Anaya Attending Unavailable Eastermacy, Darwin Anaya Admitting Unavailable Seamus, Brain Attending Unavailable Eastermacy, Darwin Anaya Primary Care Unavailable Seamus, Brain Admitting Unavailable Seamus, Brain Attending Unavailable Seamus, Brain Admitting Unavailable [place], Darwin J Primary Care Unavailable Seamus, Brain Admitting Unavailable [place], Darwin Anaya Primary Care Unavailable Seamus, Brain Attending Unavailable SEAMUS, BRAIN Attending Unavailable SEAMUS, BRAIN Attending Unavailable Allergies Allergy Classification Reported Allergen(s) Allergy Type Date of Onset Reaction(s) Facility (1 source) No Known Medication Allergies; Translations: [No Known Medication Allergies] Propensity to adverse reactions (disorder) [facility] Repository Medications Current Medications Medication Drug Class(es) [...] tablet (2 sources) Opioid Agonist Start: 06-03-2021 [place] 325 mg-5 mg oral tablet 2 tab(s), [...] day(s), # 20 tab(s), Refills(s) 0, Pharmacy: [facility], 170.2, cm, 09/29/23 10:44:00 EST, Height/Length Dosing, [...] day(s), # 28 cap(s), Refills(s) 0, Pharmacy: [facility], 170.2, cm, 03/22/23 20:14:00 EDT, Height/Length Dosing, 113.5, kg, 03/22/23 20:14:00 EDT, Weight Dosing Start Date: 03/22/23 Stop Date: 03/29/23 Status: Ordered Start: 07-03-2021 take 1 capsule by mo ut twice daily Keflex 500 mg Cap 500 mg = 1 cap(s), Oral, BID, # 10 cap(s), Refills(s) 0, Pharmacy: [facility], 170, cm, 06/27/21 10:56:00 EST, Height/Length Dosing, 104, kg, 06/23/21 8:09:00 EST, Weight Dosing Start Date: 07/03/21 Status: Ordered Start: 12-29-2020 End: 10-07-2023 take 500 mg by mouth every eight hours Cephalexin Discontinued 500 MG PO Q8H 21 December 29, 2020 12:00am October 07, 2023 7:06pm diphenhydrAMINE hydrochloride 25 mg oral capsule (1 source) Histamine-1 Receptor Antagonist Start: 02-18-2022 End: 02-21-2022 take 1 capsule by mouth three times daily as needed for headache diphenhydrAMINE 25 mg Cap 25 mg = 1 cap(s), Oral, TID, PRN Headache, Take medication with the Reglan for treatment of migraine headache, X 3 day(s), # 15 cap(s), Refills(s) 0 Start Date: 02/18/22 Stop Date: 02/21/22 Status: Ordered levothyroxine sodium 0.075 mg oral tablet (20 sources) l-Thyroxine Start: 10-07-2023 End: 11-17-2024 take 75 ug by mouth once daily [...] day(s), # 21 tab(s), Refills(s) 0, Pharmacy: [facility], 170.2, cm, 09/29/23 10:44:00 EST, Height/Length Dosing, [...] Date: 02/18/22 Stop Date: 02/21/22 Status: Ordered [id number] Fumarate-Fa () 28-800 mg-mcg Tablet (19 sources) Start: 12-29-2020 [id number] Fumarate-Fa () 28-800 mg-mcg Tablet Active TAB PO December 29, 2020 3:43pm Start: 12-29-2020 End: 10-07-2023 [id number] Fumarate-Fa ( ) 28-800 mg-mcg Tablet Discontinued TAB PO December 29, 2020 12:00am October 07, 2023 7:06pm Start: 12-29-2020 [id number] Fumarate-Fa () 28-800 mg-mcg Tablet Active TAB PO December 28, 2020 11:00pm Start: 12-29-2020 [id number] Fumarate-Fa () 28-800 mg-mcg Tablet Active TAB [...] Sig (Original) cholecalciferol 0.05 mg oral capsule (10 sources) Vitamin D Start: 10-07-2023 Cholecalciferol, Vitamin D3, 50 mcg (2,000 unit) cap cholecalciferol (vitamin D3) Active PO October 07, 2023 1:00am 0 10/07/2023 Active Start: 10-07-2023 cholecalcifero l (vitamin D3) Active PO October 07, 2023 1:00am Comment on above: cholecalciferol (vit galaviz D3) Active PO October 07, 2023 1:00am citalopram 20 mg oral tablet (20 sources) Serotonin Reuptake Inhibitor Start: 12-29-2020 End: 10-07-2023 Citalopram Discontinued MG TABLET December 29, 2020 12:00am October 07, 2023 7:06pm Start: 10-15-2019 take 20 mg by mouth once daily at bedtime Citalopram Active 20 MG PO Daily at bedtime October 07, 2023 1:00am Comment on above: Take 20 mg by mouth daily at bedtime. drospirenone / Ethinyl Estradiol (20 sources) Progestin, Estrogen Start: 06-19-2022 take 1 tablet by mouth once daily Drospirenone-Ethiny l Estradiol 3-0.03 mg per tablet Take 1 [...] source) Vitamin B12 cyanocobalamin/f olic acid (VITAMIN T61-SZBYN ACID) 1,000-400 mcg lozg Take by mouth every 24 hours. 0 Active Comment on above: Take by mouth every 24 hours. 3 ml liraglutide 6 mg/ml pen injector (5 sources) GLP-1 Receptor Agonist Start: 05-20-2022 Victoza 18 MG/3ML Week one- 0.6mg, Week two- 1.2mg, Week three on- 1.8mg Subcutaneous Daily for 30 days May, Not-Taking mecobalamin 1 mg chewable tablet (10 sources) Start: 10-07-2023 mecobalamin, vitamin B12, 1,000 [...] office Start: 09-21-2023 take 1 tablet by delphine th once daily before breakfast Phentermine HCl 37.5 MG 1 tablet before breakfast Orally Once a day for 30 days Sep, Active Start: 08-25-2023 take 1 tablet by delphine th once daily before breakfast Phentermine HCl 37.5 MG 1 tablet before breakfast Orally Once a day for 30 days 10 Kelvin, 2024 Active Start: 06-23-2023 take 1 tablet by delphine th once daily before breakfast Phentermine HCl 37.5 MG 1 tablet before breakfast Orally Once a day for 30 days Jun, Active Start: 05-26-2023 take 1 capsule by mo [facility] every twenty-four hours Phentermine HCl 37.5 MG [...] neoplasm Episodic Other and unspecified benign neoplasm (16 sources) Parathyroid adenoma; 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] Onset: 4 10-07-2023 Episodic Other complications of ; puerperium affecting management of mother (12 sources) cardiomyopathy; 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] Onset: 4 10-07-2023 Episodic Other complications of (19 sources) Hyperemesis gravidarum; Translations: [Mild hyperemesis gravidarum] 12-29-2020 Episodic Other complications of (19 sources) Urinary tract infection in ; Translations: [Unspecified infection of urinary tract in , unspecified trimester] 05-16-2021 Episodic Other gastrointestinal disorders (20 sources) Pharyngeal dysphagia; Translations: [Dysphagia, pharyngeal phase] Episodic Other gastrointestinal disorders (19 sources) Dysphagia; Translations: [Dysphagia, pharyngoesophageal phase] 06-08-2023 [...] nutritional; endocrine; and metabolic disorders (8 sources) Drug-induced obesity; 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 [facility] Comment on above: Performed By: #### P ILLAR TSH, PILLAR LIPID, PILLAR CBC, PILLAR BMP #### [facility] [address] Automated basophil countOrde red By: Addi Ortega on 04-06-2024 Basophils (Bld) [#/Vol] 0.0 10*3/uL Normal 0.0-0.2 [facility] Comment on above: Result Comment: PERF ORMED BY: [place] [address] PATHOLOGIST LAY OUT TECHNICIAN JORDI SMITH M.D. Performed By: #### P ILLAR TSH, PILLAR LIPID, PILLAR CBC, PILLAR BMP #### [facility] [address] [place] [address] Automated blood monocyte cou ntOrdered By: Addi Ortega on 04-06-2024 Monocytes (Bld) [#/Vol] 0.5 10*3/uL Normal 0.0-0.8 [facility] Comment on above: Performed By: #### P ILLAR TSH, PILLAR LIPID, PILLAR CBC, PILLAR BMP #### [address] Automated eosinophil %Ordere d By: Addi Ortega on 04-06-2024 Eosinophils/100 WBC (Bld) 0.5 % Normal . [facility] Comment on above: Performed By: #### P ILLAR TSH, PILLAR LIPID, PILLAR CBC, PILLAR BMP #### [address] Automated eosinophil countOr dered By: Addi Ortega on 04-06-2024 Eosinophils (Bld) [#/Vol] 0.0 10*3/uL Normal 0.0-0.45 [facility] Comment on above: Performed By: #### P ILLAR TSH, PILLAR LIPID, PILLAR CBC, PILLAR BMP #### [facility] [address] [place] [address] Automated monocyte %Ordered By: Addi Ortega on 04-06-2024 Monocytes/100 WBC (Bld) 5.6 % Normal . [facility] Comment on above: Performed By: #### P ILLAR TSH, PILLAR LIPID, PILLAR CBC, PILLAR BMP #### [address] Automated neutrophil %Ordere d By: Addi Ortega on 04-06-2024 Neutrophils/100 WBC (Bld) 64.9 % Normal . [facility] Comment on above: Performed By: #### P ILLAR TSH, PILLAR LIPID, PILLAR CBC, PILLAR BMP #### [address] Calcium [Mass/volume] in Ser um or PlasmaOrdered By: Addi Ortega on 04-06-2024 Calcium [Mass/Vol] 8.9 mg/dL Normal 8.6-10.3 [facility] Comment on above: Performed By: #### P ILLAR TSH, PILLAR LIPID, PILLAR CBC, PILLAR BMP #### [facility] [address] [place] [address] [place] Carbon dioxide, total [Moles /volume] in Serum or PlasmaOrdered By: Addi Ortega on 04-06-2024 CO2 [Moles/Vol] 22.0 mmol/L Normal 21.0-31.0 [facility] Comment on above: Performed By: #### P ILLAR TSH, PILLAR LIPID, PILLAR CBC, PILLAR BMP #### [facility] [address] [place] [address] [place] Chloride [Moles/volume] in S ghada or PlasmaOrdered By: Addi Ortega on 04-06-2024 Chloride [Moles/Vol] 106 mmol/L Normal 98-107 [facility] Comment on above: Performed By: #### P ILLAR TSH, PILLAR LIPID, PILLAR CBC, PILLAR BMP #### [facility] [address] [place] [address] [place] Cholesterol [Mass/volume] in Serum or PlasmaOrdered By: Addi Ortega on 04-06-2024 Cholesterol [Mass/Vol] 159 mg/dL Normal 140-200 [facility] Comment on above: Chol less than 200 m g/dl low riskChol 201-239 mg/dl borderline riskChol 240 mg/dl and greater high risk Result Comment: Chol less than 200 mg/dl low risk Chol 201-239 mg/dl borderline risk Chol 240 mg/dl and greater high risk Performed By: #### P ILLAR TSH, PILLAR LIPID, PILLAR CBC, PILLAR BMP #### [facility] [address] [place] [address] [place] Cholesterol in LDL Calc [Mas s/Vol]Ordered By: Addi Ortega on 04-06-2024 Cholesterol in LDL [Mass/Vol] 95 mg/dL 0-100 [facility] Comment on above: LDL ATP III CLASSIFI CATIONLDL less than 100 mg/dL OptimalLDL 100-129 mg/dL Near or above optimalLDL 130-159 mg/dL Borderline highLDL 160-189 mg/dL HighLDL greater than 189 mg/dL Very high Cholesterol in VLDL Calc [Ma ss/Vol]Ordered By: Addi Ortega on 04-06-2024 Cholesterol in VLDL [Mass/Vol] 15 mg/dL [facility] Creatinine [Mass/volume] in Serum or PlasmaOrdered By: Addi Ortega on 04-06-2024 Creatinine [Mass/Vol] 0.44 mg/dL Low 0.60-1.20 [facility] Comment on above: Performed By: #### P ILLAR TSH, PILLAR LIPID, PILLAR CBC, PILLAR BMP #### [facility] [address] [place] [id number] [facility] Employee Basic Metabolic Suero nargis 04-06-2024 GFR/1.73 sq M.predicted MDRD (S/P/Bld) [Vol rate/Area] mL/min/{1.73_m2} Normal [facility] Comment on above: Performed By: #### P ILLAR TSH, PILLAR LIPID, PILLAR CBC, PILLAR BMP #### [facility] [address] Employee Complete Blood Coun ton 04-06-2024 Mean Corpuscular HGB Conc 35.4 g/dL High 32.0-35.0 [facility] Comment on above: Performed By: #### P ILLAR TSH, PILLAR LIPID, PILLAR CBC, PILLAR BMP #### [facility] [address] NRBC% 0.0 /100{WBC} Normal 0-0.[address] [facility] Comment on above: Performed By: #### P ILLAR TSH, PILLAR LIPID, PILLAR CBC, PILLAR BMP #### [facility] [address] [place] [phone] [facility] Employee Lipid Profileon LDL Cholesterol,Calculated 95 mg/dL Normal 0-100 [facility] Comment on above: Result Comment: LDL ATP III CLASSIFICATION LDL less than 100 mg/dL Optimal LDL 100-129 mg/dL Near or above optimal LDL 130-159 mg/dL Borderline high LDL 160-189 mg/dL High LDL greater than 189 mg/dL Very high Performed By: #### P ILLAR TSH, PILLAR LIPID, PILLAR CBC, PILLAR BMP #### [address] Triglyceride w/Reflex 79 mg/dL Normal 0-149 [facility] Comment on above: Result Comment: TRIG ATP III CLASSIFICATION TRIG less than 150 mg/dL Normal TRIG 150-199 mg/dL Borderline high TRIG 200-500 mg/dL High TRIG greater than 500 mg/dL Very high Standard traceable to the Center for Disease Conrtrol and Prevention (CDC) test method. Performed By: #### P ILLAR TSH, PILLAR LIPID, PILLAR CBC, PILLAR BMP #### [address] VLDL CHOLESTEROL 15 mg/dL Normal [facility] Comment on above: Performed By: #### P ILLAR TSH, PILLAR LIPID, PILLAR CBC, PILLAR BMP #### [address] Employee Thyroid Stim Hormon gokul 04-06-2024 Employee Thyroid Stim Hormone 2.72 u[iU]/mL Normal 0.45-5.33 [facility] Comment on above: Result Comment: PERF ORMED BY: [place] [address] PATHOLOGIST LAY OUT TECHNICIAN JORDI SMITH M.D. Performed By: #### P ILLAR TSH, PILLAR LIPID, PILLAR CBC, PILLAR BMP #### [address] Erythrocyte distribution wid th [Ratio] by Automated countOrdered By: Addi Ortega on 04-06-2024 Erythrocyte distribution width (RBC) [Ratio] 12.7 % Normal 11.9-15.3 [facility] Comment on above: Performed By: #### P ILLAR TSH, PILLAR LIPID, PILLAR CBC, PILLAR BMP #### [address] Erythrocytes [#/volume] in B lood by Automated countOrdered By: Addi Ortega on 04-06-2024 RBC (Bld) [#/Vol] 4.04 10*6/uL Normal 3.60-5.00 [facility] Comment on above: Performed By: #### P ILLAR TSH, PILLAR LIPID, PILLAR CBC, PILLAR BMP #### [facility] [address] Glucose [Mass/volume] in Ser um or PlasmaOrdered By: Addi Ortega on 04-06-2024 Glucose [Mass/Vol] 82 mg/dL Normal 70-100 [facility] Comment on above: Performed By: #### P ILLAR TSH, PILLAR LIPID, PILLAR CBC, PILLAR BMP #### [facility] [address] [place] [address] Hematocrit [Volume Fraction] of Blood by Automated countOrdered By: Addi Ortega on 04-06-2024 Hematocrit (Bld) [Volume fraction] 37.6 % Normal 34.0-46.4 [facility] Comment on above: Performed By: #### P ILLAR TSH, PILLAR LIPID, PILLAR CBC, PILLAR BMP #### [facility] [address] [place] [address] Hemoglobin [Mass/volume] in BloodOrdered By: Addi Ortega on 04-06-2024 Hemoglobin (Bld) [Mass/Vol] 13.3 g/dL Normal 11.8-15.4 [facility] Comment on above: Performed By: #### P ILLAR TSH, PILLAR LIPID, PILLAR CBC, PILLAR BMP #### [facility] [address] [place] [address] Leukocytes [#/volume] correc hamilton for nucleated erythrocytes in Blood by Automated counOrdered By: Addi Ortega on 04-06-2024 WBC corrected for nucl RBC Auto (Bld) [#/Vol] 8.9 10*3/uL 3.8-11.6 [facility] Leukocytes [#/volume] in Blo od by Automated countOrdered By: Addi Ortega on 04-06-2024 WBC (Bld) [#/Vol] 8.9 10*3/uL Normal 3.8-11.6 [facility] Comment on above: Performed By: #### P ILLAR TSH, PILLAR LIPID, PILLAR CBC, PILLAR BMP #### [address] Lymphocytes [#/volume] in Bl ood by Automated countOrdered By: Addi Ortega on 04-06-2024 Lymphocytes (Bld) [#/Vol] 2.5 10*3/uL Normal 1.00-4.8 [facility] Comment on above: Performed By: #### P ILLAR TSH, PILLAR LIPID, PILLAR CBC, PILLAR BMP #### [address] Lymphocytes/100 leukocytes i n Blood by Automated countOrdered By: Addi Ortega on 04-06-2024 Lymphocytes/100 WBC (Bld) 28.8 % Normal . [facility] Comment on above: Performed By: #### P ILLAR TSH, PILLAR LIPID, PILLAR CBC, PILLAR BMP #### [address] MCH [Entitic mass] by Automa hamilton countOrdered By: Addi Ortega on 04-06-2024 MCH (RBC) [Entitic mass] 32.9 pg Normal 24.7-34.3 [facility] Comment on above: Performed By: #### P ILLAR TSH, PILLAR LIPID, PILLAR CBC, PILLAR BMP #### [address] MCHC Auto (RBC) [Mass/Vol]Or dered By: Addi Ortega on 04-06-2024 MCHC (RBC) [Mass/Vol] 35.4 g/dL High 32.0-35.0 [facility] MCV [Entitic volume] by Auto mated countOrdered By: Addi Ortega on 04-06-2024 MCV (RBC) [Entitic vol] 93.2 fL Normal 80-100 [facility] Comment on above: Performed By: #### P ILLAR TSH, PILLAR LIPID, PILLAR CBC, PILLAR BMP #### [place] [address] [place] Neutrophils [#/volume] in Bl ood by Automated countOrdered By: Addi Ortega on 04-06-2024 Neutrophils (Bld) [#/Vol] 5.8 10*3/uL Normal 1.8-7.7 [facility] Comment on above: Performed By: #### P ILLAR TSH, PILLAR LIPID, PILLAR CBC, PILLAR BMP #### [facility] [address] No Panel InformationOrdered By: Addi Ortega on 04-06-2024 Estimated GFR (CKD-EPI) > 60.0 mL/Min [facility] Creatinine Clearance (Chem N/A [facility] Nucleated erythrocytes [Pres ence] in Blood by Automated countOrdered By: Addi Ortega on 04-06-2024 Nucleated RBC Auto Ql (Bld) 0.0 /100{WBC} 0-0.5 [facility] Platelet mean volume [Entiti c volume] in Blood by Automated countOrdered By: Addi Ortega on 04-06-2024 Platelet mean volume (Bld) [Entitic vol] 8.8 fL Normal 6.3-10.7 [facility] Comment on above: Performed By: #### P ILLAR TSH, PILLAR LIPID, PILLAR CBC, PILLAR BMP #### [facility] [address] Platelets [#/volume] in Bloo d by Automated countOrdered By: Addi Ortega on 04-06-2024 Platelets (Bld) [#/Vol] 274 10*3/uL Normal 150-450 [facility] Comment on above: Performed By: #### P ILLAR TSH, PILLAR LIPID, PILLAR CBC, PILLAR BMP #### [facility] [address] [place] [address] [place] Potassium [Moles/volume] in Serum or PlasmaOrdered By: Addi Ortega on 04-06-2024 Potassium [Moles/Vol] 4.0 mmol/L Normal 3.5-5.1 [facility] Comment on above: Performed By: #### P ILLAR TSH, PILLAR LIPID, PILLAR CBC, PILLAR BMP #### [facility] [address] [place] [address] Serum or plasma anion gap de terminationOrdered By: Addi Ortega on 04-06-2024 Anion gap [Moles/Vol] 11.0 mmol/L Normal 6.0-15.0 [facility] Comment on above: Performed By: #### P ILLAR TSH, PILLAR LIPID, PILLAR CBC, PILLAR BMP #### [facility] [address] [place] [address] Serum or plasma high density lipoprotein (HDL) cholesterol measurementOrdered By: Addi Ortega on 04-06-2024 Cholesterol in HDL [Mass/Vol] 48 mg/dL Normal 23-92 [facility] Comment on above: HDL CHOL ATP-III CLA SSIFICATION Cardiovascular RiskHDL > or equal to 60 mg/dL LOWHDL < 40 mg/dL HIGH Result Comment: HDL CHOL ATP-III CLASSIFICATION Cardiovascular Risk HDL > or equal to 60 mg/dL LOW HDL < 40 mg/dL HIGH Performed By: #### P ILLAR TSH, PILLAR LIPID, PILLAR CBC, PILLAR BMP #### [facility] [address] [place] [address] Serum or plasma total choles terol/high density lipoprotein (HDL) cholesterol mass ratOrdered By: Addi Ortega on 04-06-2024 Cholesterol.total/Alexandra sterol in HDL [Mass ratio] 3.3 {ratio} Normal <5.0 [facility] Comment on above: Performed By: #### P ILLAR TSH, PILLAR LIPID, PILLAR CBC, PILLAR BMP #### [facility] [address] [place] [address] Sodium [Moles/volume] in Ser um or PlasmaOrdered By: Addi Ortega on 04-06-2024 Sodium [Moles/Vol] 135 mmol/L Low 136-145 [facility] Comment on above: Performed By: #### P ILLAR TSH, PILLAR LIPID, PILLAR CBC, PILLAR BMP #### [facility] [address] [place] [address] Thyrotropin [Units/volume] i n Serum or PlasmaOrdered By: Addi Ortega on 04-06-2024 TSH Qn 2.72 m[IU]/L 0.45-5.33 [facility] Triglyceride [Mass/volume] i n Serum or PlasmaOrdered By: Addi Ortega on 04-06-2024 Triglyceride [Mass/Vol] 79 mg/dL 0-149 [facility] Comment on above: TRIG ATP III CLASSIF ICATIONTRIG less than 150 mg/dL NormalTRIG 150-199 mg/dL Borderline highTRIG 200-500 mg/dL High TRIG greater than 500 mg/dL Very highStandard traceable to the Center for Disease Conrtrol and Prevention (CDC) test method. Urea nitrogen [Mass/volume] in Serum or PlasmaOrdered By: Addi Ortega on 04-06-2024 Urea nitrogen [Mass/Vol] 7 mg/dL Normal 7-25 [facility] Comment on above: Performed By: #### P ILLAR TSH, PILLAR LIPID, PILLAR CBC, PILLAR BMP #### [address] ED Note-Physicianon 03-20-20 ED Note-Physician ED Note-Physician Basic Information Time Seen: Sunny BECKHAM, Hector Anaya. 03/18/2024 08:14 Chief Complaint pt reports being [...] and Complexity of Problems Differential Diagnosis: [] [facility] Data External documents reviewed: [] My EKG [...] with the patient. Discussed follow-up with her ANIME ARTIST which she will do. Discussed return precautions. [...] Nath In 3 days 03/21/2024 EDT [address] [place] [address]- Business (1) Additional Instructions: DARWIN JONES In 3 days [address] [facility] [place] [address] [place] [phone] Business (1) Additional Instructions: Patient Education Threatened Miscarriage Subchorionic Hematoma Attestation Patient seen and evaluated by the physician call center assistant. Attending physician was present in the emergency department and supervised care. This visit was performed by both the physician and an APC. I performed all aspects of the MDM as documented. This report was transcribed using voice recognition software. Every effort was made to ensure accuracy, however, inadvertently computerized tobacco drummer mistakes may be present. Appropriate healthc (more content not included)... Normal [facility] Comment on above: Result Comment: Elec tronically Signed By: Hector Correa PA-C\.br\Date and Time Signed: 03/18/24 12:11 EDT\.br\Electronically Co-Signed By: Toan Lake DO\.br\Date and Time Co-Signed: 03/20/24 07:17 EDT ABO/Rhon 03-18-2024 ABO/Rh Negative Invalid Interpretation Code [facility] Comment on above: Performed By: #### 2 [id number] #### [facility] [address] [place] [address] BLOOD BANKOrdered By: Nikky Brennan on 03-18-2024 ABO/Rh Interp Negative Invalid Interpretation Code [facility] BB Subsection BMPon 03-18-2024 Anion gap [Moles/Vol] 12 mmol/L Normal 6-16 [facility] Comment on above: Performed By: #### 2 [id number] #### [facility] [address] [place] [address] Calcium [Mass/Vol] 9.2 mg/dL Normal 8.9-11.1 [facility] Comment on above: Performed By: #### 2 [id number] #### [facility] [address] [place] [address] Chloride [Moles/Vol] 105 mmol/L Normal 101-111 [facility] Comment on above: Performed By: #### 2 [id number] #### [facility] [address] [place] [address] CO2 [Moles/Vol] 23 mmol/L Normal 21-31 [facility] Comment on above: Performed By: #### 2 [id number] #### [facility] [address] [place] [address] Creatinine [Mass/Vol] 0.5 mg/dL Normal 0.5-1.3 [facility] Comment on above: Performed By: #### 2 [id number] #### [facility] [address] [place] [address] Glucose [Mass/Vol] 92 mg/dL Normal 55-199 [facility] Comment on above: Performed By: #### 2 [id number] #### [facility] [address] [place] [address] Potassium [Moles/Vol] 3.8 mmol/L Normal 3.5-5.3 [facility] Comment on above: Performed By: #### 2 438141 #### [facility] [address] [place] [address] Sodium [Moles/Vol] 136 mmol/L Normal 135-145 [facility] Comment on above: Performed By: #### 2 [id number] #### [facility] [address] [place] [address] Urea nitrogen [Mass/Vol] 9 mg/dL Normal 5-21 [facility] Comment on above: Performed By: #### 2 [id number] #### [facility] [address] [place] [address] Urea nitrogen/Creatinine [Mass ratio] 18 No Units Normal 10-20 [facility] Comment on above: Performed By: #### 2 [id number] #### [facility] [address] [place] [address] BhCG Quanton 03-18-2024 [place] [address] m[IU]/mL High 1-3 [facility] Comment on above: Result Comment: 'F N ON < 1 - 3' ' 0.2 - 1 WEEK = 5 TO 50' ' 1 - 2 WEEKS = 50 - 500' ' 2 - 3 WEEKS = 100 - 5000' ' 3 - 4 WEEKS = 500 - 91320' ' 4 - 5 WEEKS = 1000 - 45820' ' 5 - 6 WEEKS = 05753 - 569441' ' 6 - 8 WEEKS = 26517 - 645840' ' 8 - 12 WEEKS = 21474 - 464614' Performed By: #### 2 [id number] #### [facility] [address] [place] [address] CBC w/ Auto Diffon 4 Basophils/100 WBC (Bld) 0.6 % Normal 0.0-2.0 [facility] Comment on above: Performed By: #### 2 [id number] #### [facility] [address] [place] [address] Basophils/Leukocytes Auto (Bld) [Pure # fraction] 0.0 E9/L Normal 0.0-0.2 [facility] Comment on above: Performed By: #### 2 [id number] #### [facility] [address] [place] [address] Eosinophils (Bld) [#/Vol] 0.0 E9/L Normal 0.0-0.5 [facility] Comment on above: Performed By: #### 2 820503 #### [facility] [address] [place] [address] Eosinophils/100 WBC (Bld) 0.5 % Normal 0.0-8.0 [facility] Comment on above: Performed By: #### 2 [id number] #### [facility] [address] [place] [address] Erythrocyte distribution width (RBC) [Ratio] 12.5 % Normal 10.9-14.2 [facility] Comment on above: Performed By: #### 2 [id number] #### [facility] [address] [place] [address] Hematocrit (Bld) [Volume fraction] 40.2 % Normal 34.0-46.0 [facility] Comment on above: Performed By: #### 2 911966 #### [facility] [address] [place] [address] Hemoglobin (Bld) [Mass/Vol] 13.8 g/dL Normal 12.0-16.0 [facility] Comment on above: Performed By: #### 2 588146 #### [facility] [address] [place] [address] Lymphocytes (Bld) [#/Vol] 2.4 E9/L Normal 1.0-4.0 [facility] Comment on above: Performed By: #### 2 363675 #### [facility] [address] [place] [address] Lymphocytes/100 WBC (Bld) 28.4 % Normal 14.0-50.0 [facility] Comment on above: Performed By: #### 2 331173 #### [facility] [address] [place] [address] MCH (RBC) [Entitic mass] 32.3 pg Normal 27.0-34.0 [facility] Comment on above: Performed By: #### 2 275408 #### [facility] [address] [place] [address] MCHC (RBC) [Mass/Vol] 34.3 g/dL Normal 31.4-36.0 [facility] Comment on above: Performed By: #### 2 094025 #### [facility] [address] [place] [address] MCV (RBC) [Entitic vol] 94.2 fL Normal 80.0-100.0 [facility] Comment on above: Performed By: #### 2 [id number] #### [facility] [address] [place] [address] Monocytes (Bld) [#/Vol] 0.4 E9/L Normal 0.2-1.0 [facility] Comment on above: Performed By: #### 2 012092 #### [facility] [address] [place] [address] Neutrophils (Bld) [#/Vol] 5.4 E9/L Normal 2.0-7.5 [facility] Comment on above: Performed By: #### 2 604064 #### [facility] [address] [place] [address] Neutrophils/100 WBC (Bld) 65.4 % Normal 36.0-75.0 [facility] Comment on above: Performed By: #### 2 204089 #### [facility] [address] [place] [address] Platelet mean volume (Bld) [Entitic vol] 8.5 fL Normal 6.4-10.8 [facility] Comment on above: Performed By: #### 2 [id number] #### [facility] [address] [place] [address] Platelets (Bld) [#/Vol] 249.0 E9/L Normal 150.0-500.0 [facility] Comment on above: Performed By: #### 2 585332 #### [facility] [address] [place] [address] RBC (Bld) [#/Vol] 4.3 E12/L Normal 4.3-5.9 [facility] Comment on above: Performed By: #### 2 534024 #### [facility] [address] [place] [address] WBC corrected for nucl RBC Auto (Bld) [#/Vol] 8.3 E9/L Normal 4.0-11.0 [facility] Comment on above: Performed By: #### 2 234793 #### [facility] [address] [place] [address] CHEMISTRYOrdered By: SYSTEM SYSTEM on 03-18-2024 Anion [...] 199 mg/[place] [address] m[IU]/mL High 1 - 3 mIU/mL [facility] Comment on above: Result Comment: 'F N ON < 1 - 3' ' 0.2 - 1 WEEK = 5 TO 50' ' 1 - 2 WEEKS = 50 - 500' ' 2 - 3 WEEKS = 100 - 5000' ' 3 - 4 WEEKS = 500 - 21324' ' 4 - 5 WEEKS = 1000 - 73745' ' 5 - 6 WEEKS = 92722 - 269317' ' 6 - 8 WEEKS = 62913 - 482019' ' 8 - 12 WEEKS = 74373 - 559032' Potassium [Moles/Vol] 3.8 mmol/L Normal 3.5 - 5.3 mmol/L [facility] Sodium [Moles/Vol] 136 mmol/L Normal 135 - 145 mmol/L [facility] Urea nitrogen [Mass/Vol] 9 mg/dL Normal 5 - 21 mg/dL [facility] Urea nitrogen/Creatinine [Mass ratio] 18 mg/mg Normal 10 - 20 [facility] ED Clinical Summaryon 2023 ED Clinical Summary ED Clinical Summary [address] [address] ED Clinical Summary Person Information Name: TAWNYA HERRING/New_Rory Age: 28 Years : 1995 Sex: Female Language: Beninese PCP: DARWIN JONES CNP Marital Status: Single Phone: [phone] Visit Id: Visit Reason: Vaginal bleeding - [...] 03/18/2024 12:15:02 03/18/2024 12:15:02 03/18/2024 12:15:02 ADDRESS: [address] [place] [phone] PHYS DOC NOTES: MEDICAL INFORMATION: Prescriptions Given: Medications to Continue with No Changes Other Medications citalopram (CeleXA 20 mg Tab) 1 Tablets By Mouth every day. PATIENT EDUCATION INFORMATION: Instructions: Threatened Miscarriage; Subchorionic Hematoma Follow up: With: Address: When: Rogelio Nath [address], [place] [address] Business (1) In 3 days 03/21/2024 With: Address: When: DARWIN LARABUFFALO [address] [place], [place] [address] [place] [phone] Business (1) In 3 days DIAGNOSIS: Subchorionic bleed; Threatened Normal [facility] ED Patient Summaryon 024 ED Patient Summary ED Patient Summary [address] [address] Patient Discharge Instructions Person Information Name: TAWNYA HERRING Age: 28 Years Arrival Date: 03/18/2024 08:06:19 Discharge Diagnosis: Subchorionic bleed; Threatened Primary Care Physician: DARWIN JONES CNP Provider Information Primary Provider: Toan Lake DO Advanced Cover Creaser:None The exam and treatment you received in the Emergency Department were for an urgent problem and are not intended as complete care. It is important that you follow up with a doctor, nurse practitioner, or physician?s call center assistant for ongoing care. If your symptoms become worse or you do not improve as expected and you are unable to reach your usual health care provider, you should return to the Emergency Department. We are available 24 hours a day. TAWNYA HERRING has been given the following list of patient education materials, prescriptions and follow-up instructions: Follow-up Instructions: With: Address: When: Rogelio Nath [address] [facility] [address], [place] [address] Business (1) In 3 days 03/21/2024 With: Address: When: DARWIN ROBERTJOEY [address] [place] [address] [place] [phone] [facility] (1) In 3 days In the event that this physician does not participate in your insurance network, please consult with your insurance company to find a nearby participating provider. Patient Education Materials: Threatened Miscarriage; Subchorionic Hematoma A MESSAGE TO ALL PATIENTS REGARDING OPIOIDS PRESCRIPTION OPIOIDS: WHAT YOU NEED TO KNOW Prescription opioids can be used to help relieve yodvacns-qr-zrkxlm pain and are often prescribed following a [...] you be (more content not included)... Normal [facility] HEMATOLOGYOrdered By: SYSTEM SYSTEM on 03-18-2024 Basophils/100 [...] 24 Bilirubin Ql (U) Negative Normal Negative [facility] Comment on above: Performed By: #### 4 [id number] #### [facility] [address] [place] [address] Clarity (U) Clear Normal Clear [facility] Comment on above: Performed By: #### 4 [id number] #### [facility] [address] [place] [address] Color (U) Yellow Normal Yellow [facility] Comment on above: Result Comment: Micr oscopic readings are only performed on those samples that meet specific criteria set forth by [facility]. Performed By: #### 4 [id number] #### [facility] [address] [place] [address] Epithelial cells.squamous Auto (Urine sed) [#/Area] 0-2 Invalid Interpretation Code [facility] Comment on above: Performed By: #### 4 [id number] #### [facility] [address] [place] [address] Glucose Ql (U) Negative Normal Negative [facility] Comment on above: Performed By: #### 4 [id number] #### [facility] [address] [place] [address] Hemoglobin Auto test strip (U) [Mass/Vol] 3+ mg/dL Abnormal Negative [facility] Comment on above: Performed By: #### 4 [id number] #### [facility] [address] [place] [address] Ketones Auto test strip Ql (U) Negative Normal Negative [facility] Comment on above: Performed By: #### 4 [id number] #### [facility] [address] [place] [address] Leukocyte esterase Auto test strip Ql (U) 25 Chaparrita/uL Normal Negative [facility] Comment on above: Performed By: #### 4 [id number] #### [facility] [address] [place] [address] Mucus Auto Ql (U) Trace Normal Negative [facility] Comment on above: Performed By: #### 4 [id number] #### [facility] [address] [place] [address] Nitrite Auto test strip Ql (U) Negative Normal Negative [facility] Comment on above: Performed By: #### 4 [id number] #### [facility] [address] [place] [address] pH (U) 7.5 [pH] Invalid Interpretation Code 5.0-9.0 [facility] Comment on above: Performed By: #### 4 [id number] #### [facility] [address] [place] [address] Protein Ql (U) Trace Abnormal Negative [facility] Comment on above: Performed By: #### 4 [id number] #### [facility] [address] [place] [address] RBC Ql (U) 31-75 Abnormal 0-3 [facility] Comment on above: Performed By: #### 4 [id number] #### [facility] [address] [place] [address] Specific gravity (U) [Rel density] 1.023 Invalid Interpretation Code 1.005-1.030 [facility] Comment on above: Performed By: #### 4 [id number] #### [facility] [address] [place] [id number] Urobilinogen (U) [Mass/Vol] Negative Normal Negative [facility] Comment on above: Performed By: #### 4 [id number] #### [facility] [address] [place] [address] WBC Auto (Urine sed) [#/Area] 0-5 Normal 0-5 [facility] Comment on above: Performed By: #### 4 [id number] #### [facility] [address] [place] [address] Type of Urine collection method Clean Catch Normal [facility] Comment on above: Performed By: #### 4 [id number] #### [facility] [address] [place] [address] URINALYSISOrdered By: SYSTEM SYSTEM on 03-18-2024 Bilirubin Ql (U) Negative Normal Negativemg/ dL [facility] Auto SS Clarity (U) Clear (03/18/24 8:17 AM) Normal Clear [facility] UA Auto SS Color (U) Yellow 1 (03/18/24 8:17 AM) Normal Yellow [facility] Auto SS Comment on above: Interpretive Data: M icroscopic readings are only performed on those samples that meet specific criteria set forth by [facility]. Epithelial cells.squamous Auto (Urine sed) [#/Area] 0-2 graded/HPF Invalid Interpretation Code [facility] Auto SS Glucose Ql (U) Negative Normal Negativemg/ dL [facility]A Auto SS Hemoglobin Auto test strip (U) [Mass/Vol] 3+ mg/dL Invalid Interpretation Code Negativemg/ dL [facility]A Auto SS Ketones Auto test strip Ql (U) Negative Normal Negativemg/ dL [facility] Auto SS Leukocyte esterase Auto test [...] Desc Clean Catch (03/18/24 8:17 AM) Normal [facility]A Auto SS 1st Trimesteron 03-18-2024 US [...] intrauterine , with heart rate 125 bpm. Heyburn-rump length 3.22 mm. Mean sac diameter 1.74 [...] Transabdominal Ultrasound Performed Transvaginal Ultrasound Performed Normal [facility] US Transvaginalon 03-18-2024 US Transvaginal Exam Date/Time: 03/18/2024 11:41 EDT Reason for Exam: Vaginal bleeding Report Please review ultrasound pelvis for ultrasound transvaginal report. Ordering Provider: Hector Correa FINAL REPORT Dictated: 03/18/2024 12:06 pm Luis Alfredo Bunch MD Signed (Electronic Signature): 03/18/2024 12:06 pm Signed by: Luis Alfredo Bunch MD Transcribed by: EDWIN Technologist: MARCOS Normal [facility] eGFRon 03-18-2024 eGFR 131 mL/min/1.73 m2 Normal >=59 [facility] Comment on above: Order Comment: Order added by Discern Expert. Performed By: #### 1 [id number] #### [facility] [address] [place] [address] Progesteroneon 02-24-2024 Progesterone 9.9 ng/mL Normal . [facility] Comment on above: Result Comment: Foll icular phase 0.1 - 0.9 Luteal phase 1.8 - 23.9 Ovulation phase 0.1 - 12.0 First trimester 11.0 - 44.3 Second trimester 25.4 - 83.3 Third trimester 58.7 - 214.0 Postmenopausal 0.0 - 0.1 Performed at: - [facility] [address] [id number] Recreation Engineer: Alexis Ashton PhD, Phone: [phone] PERFORMED BY: [place] [address] PATHOLOGIST LAY OUT TECHNICIAN JORDI SMITH M.D. Performed By: #### P ILLAR TSH, PILLAR LIPID, PILLAR CBC, PILLAR BMP #### [address] Serum or plasma progesterone measurement (mass/volume)Ordered By: Brain Way on 02-24-2024 Progesterone [Mass/Vol] 9.9 ng/mL . [facility] Comment on above: Follicular phase 0.1 - 0.9 Luteal phase 1.8 - 23.9 Ovulation phase 0.1 - 12.0 First trimester 11.0 - 44.3 Second trimester 25.4 - 83.3 Third trimester 58.7 - 214.0 Postmenopausal 0.0 - 0.1Performed at: [facility] [id number] Director: Alexis Ashton PhD, Phone: [phone] Progesteroneon 01-24-2024 Progesterone 8.5 ng/mL Normal . [facility] Comment on above: Result Comment: Foll icular phase 0.1 - 0.9 Luteal phase 1.8 - 23.9 Ovulation phase 0.1 - 12.0 First trimester 11.0 - 44.3 Second trimester 25.4 - 83.3 Third trimester 58.7 - 214.0 Postmenopausal 0.0 - 0.1 Performed at: [facility] [id number] Recreation Engineer: Alexis Ashton PhD, Phone: [phone] PERFORMED BY: [facility] [place] [address] PATHOLOGIST LAY OUT TECHNICIAN JORDI SMITH M.D. Performed By: #### P ANTHONY #### [facility] , Serum or plasma progesterone measurement (mass/volume)Ordered By: Brain Way on 01-24-2024 Progesterone [Mass/Vol] 8.5 ng/mL . [facility] Comment on above: Follicular phase 0.1 - 0.9 Luteal phase 1.8 - 23.9 Ovulation phase 0.1 - 12.0 First trimester 11.0 - 44.3 Second trimester 25.4 - 83.3 Third trimester 58.7 - 214.0 Postmenopausal 0.0 - 0.1Performed at: [facility] [id number] Director: Alexis Ashton PhD, Phone: [phone] Progesteroneon 12-27-2023 Progesterone 13.3 ng/mL Normal . [facility] Comment on above: Result Comment: Foll icular phase 0.1 - 0.9 Luteal phase 1.8 - 23.9 Ovulation phase 0.1 - 12.0 First trimester 11.0 - 44.3 Second trimester 25.4 - 83.3 Third trimester 58.7 - 214.0 Postmenopausal 0.0 - 0.1 Performed at: [facility] [id number] Recreation Engineer: Alexis Ashton PhD, Phone: [phone] PERFORMED BY: [place] [address] [place] [address] PATHOLOGIST LAY OUT TECHNICIAN JORDI SMITH M.D. Performed By: #### P ANTHONY #### [facility] , Serum or plasma progesterone measurement (mass/volume)Ordered By: Brain Way on 12-27-2023 Progesterone [Mass/Vol] 13.3 ng/mL . [facility] Comment on above: Follicular phase 0.1 - 0.9 Luteal phase 1.8 - 23.9 Ovulation phase 0.1 - 12.0 First trimester 11.0 - 44.3 Second trimester 25.4 - 83.3 Third trimester 58.7 - 214.0 Postmenopausal 0.0 - 0.1Performed at: [facility] [place] [id number] Director: Alexis Ashton PhD, Phone: [phone] Progesteroneon 11-30-2023 Progesterone 16.9 ng/mL Normal . [facility] Comment on above: Result Comment: Foll icular phase 0.1 - 0.9 Luteal phase 1.8 - 23.9 Ovulation phase 0.1 - 12.0 First trimester 11.0 - 44.3 Second trimester 25.4 - 83.3 Third trimester 58.7 - 214.0 Postmenopausal 0.0 - 0.1 Performed at: [facility] [address] [place] [id number] Recreation Engineer: Alexis Ashton PhD, Phone: [phone] PERFORMED BY: [facility] [address] [place] [address] PATHOLOGIST LAY OUT TECHNICIAN JORDI SMITH M.D. Performed By: #### P ANTHONY #### [facility] , Serum or plasma progesterone measurement (mass/volume)Ordered By: Brain Way on 11-30-2023 Progesterone [Mass/Vol] 16.9 ng/mL . [facility] Comment on above: Follicular phase 0.1 - 0.9 Luteal phase 1.8 - 23.9 Ovulation phase 0.1 - 12.0 First trimester 11.0 - 44.3 Second trimester 25.4 - 83.3 Third trimester 58.7 - 214.0 Postmenopausal 0.0 - 0.1Performed at: CB - [facility] [address] [id number] Director: Alexis Ashton PhD, Phone: [phone] CNOVon 11-18-2023 CNOV Office Visit (ENDOMN ) TAWNYA HERRING ([id number]) 1995 F Date Time Provider Department 11/18/23 8:30 AM RUBY [facility] ENDOMN During your visit today, we recorded the following information about you: Pulse Blood pressure Weight Last Period 100/minute 132/92 110.7 kg 11/09/23 Odalis Greene 11/18/2023 7:58 AM Signed Thank you for choosing the [facility] Department of Endocrinology, Diabetes and Metabolism. Did you know that you need to call 48 hours in advance of your scheduled visit, if you are unable to make your appointment? The Endocrinology and Metabolism [place] thanks you for your commitment, because patients not showing to their appointment results in a lost opportunity for patients to receive [facility] health care at the [facility]. To Cancel an appointment, please choose one of the following: - Call the Appointment Call Center at [phone] - From [facility], Go to Appointments - Cancel Appts If cancelling, consider your need to reschedule to prevent further delays in your care. To Schedule an appointment, please choose one of the following: - Call the Appointment Call Center at [phone] - From [facility], Go to Appointments - Request an Appt [...] as of 11/18/2023 - cyanocobalamin/folic acid (VITAMIN Y39-KGBQB ACID) 1,000-400 mcg lozg Take by mouth (more content not included)... Normal [facility] Progesteroneon 11-01-2023 Progesterone 7.1 ng/mL Normal . [facility] Comment on above: Result Comment: Foll icular phase 0.1 - 0.9 Luteal phase 1.8 - 23.9 Ovulation phase 0.1 - 12.0 First trimester 11.0 - 44.3 Second trimester 25.4 - 83.3 Third trimester 58.7 - 214.0 Postmenopausal 0.0 - 0.1 Performed at: [facility] [address] [id number] Recreation Engineer: Alexis Ashton PhD, Phone: [phone] PERFORMED BY: [address] [place] [address] PATHOLOGIST LAY OUT TECHNICIAN JORDI SMITH M.D. Performed By: #### P ANTHONY #### [facility] , Serum or plasma progesterone measurement (mass/volume)Ordered By: Brain Way on 11-01-2023 Progesterone [Mass/Vol] 7.1 ng/mL . [facility] Comment on above: Follicular phase 0.1 - 0.9 Luteal phase 1.8 - 23.9 Ovulation phase 0.1 - 12.0 First trimester 11.0 - 44.3 Second trimester 25.4 - 83.3 Third trimester 58.7 - 214.0 Postmenopausal 0.0 - 0.1Performed at: [facility] [place] [address] [id number] Director: Alexis Ashton PhD, Phone: [phone] Progesteroneon 10-01-2023 Progesterone 0.9 ng/mL Normal . [facility] Comment on above: Result Comment: Foll icular phase 0.1 - 0.9 Luteal phase 1.8 - 23.9 Ovulation phase 0.1 - 12.0 First trimester 11.0 - 44.3 Second trimester 25.4 - 83.3 Third trimester 58.7 - 214.0 Postmenopausal 0.0 - 0.1 Performed at: [facility] [address] [place] [id number] Recreation Engineer: Alexis Ashton PhD, Phone: [phone] PERFORMED BY: [address] [place] [address] PATHOLOGIST LAY OUT TECHNICIAN JORDI SMIHT M.D. Performed By: #### P ANTHONY #### [facility] , Serum or plasma progesterone measurement (mass/volume)Ordered By: Brain Way on 10-01-2023 Progesterone [Mass/Vol] 0.9 ng/mL . F [facility] Comment on above: Follicular phase 0.1 - 0.9 Luteal phase 1.8 - 23.9 Ovulation phase 0.1 - 12.0 First trimester 11.0 - 44.3 Second trimester 25.4 - 83.3 Third trimester 58.7 - 214.0 Postmenopausal 0.0 - 0.1Performed at: [facility] [address] [id number] Director: Alexis Ashton PhD, Phone: [phone] Ambulatory Visit Summaryon 0 09-29-2023 Ambulatory Visit [...] with DARWIN JONES CNP When: Where: [address] [place] [address]- Medications What How Much When Why Instructions New amoxicillin-clavulana te (Augmentin 875 mg oral tablet) 1 Tablets By Mouth Every 12 hours Sinusitis BMI 38.0-38.9,adult Duration: 10 Days Pickup at [facility] New methylPREDNISolone (Medrol Dosepack 4 mg Tab) 1 Packets By Mouth As Directed Sinusitis BMI 38.0-38.9,adult Duration: 6 Days as directed on package labeling Pickup at [facility] Unchanged citalopram (CeleXA 20 mg Tab) 1 Tablets By Mouth Every day Contact prescribing physician if questions or concerns Unchanged citalopram (citalopram 20 mg Tab) Contact prescribing physician if questions or concerns Unchanged pyridoxine (Vitamin B6 100 mg Tab) By Mouth Every day Contact prescribing physician if questions or concerns Pharmacy Information [facility]: [address] [phone] Allergies No Known Allergies No Known Medication [...] you for choosing us for your care. Louie [facility] Family Medicine Office/Clini c Noteon 09-29-2023 Family [...] with voice recognition software. Occasional wrong-word or ?bzccq-v-eidf? substitutions may have occurred due to the [...] with improvement. She does not use any ymog-rjh-bvzcpxm Flonase and has not tried any other [...] day(s), # 20 tab(s), Refills(s) 0, Pharmacy: [facility], 170.2, cm, 09/29/23 10:44:00 EST, Height/Length Dosing, 112, kg, 09/29/23 10:44:00 EST, Weight Dosing methylPREDNISolone, = 1 packet(s), Oral, As Directed, as directed on package labeling, X 6 day(s), # 21 tab(s), Refills(s) 0, Pharmacy: [facility], 170.2, cm, 09/29/23 10:44:00 EST, Height/Length Dosing, 112, kg, 09/29/23 10:44:00 EST, Weight Dosing 2. BMI 38.0-38.9,adult (Z68.38: Body mass index [BMI] 38.0-38.9, adult) The standard range for ages 18 and olde (more content not included)... Normal [facility] Comment on above: Result Comment: Elec tronically Signed By: Pranav BECKAHM, Tyrone Mujica\.br\Date and Time Signed: 09/29/23 11:05 [...] ? Medicines that treat allergies (antihistamines). ? Bqiw-hgo-mdasrwl pain relievers. ? If caused by bacteria, [...] home: Medicines ? Take, use, or apply unhl-xss-iyvqdwq and prescription medicines only as told by [...] and water are not available, use hand editor dictionary. ? Do not smoke. Avoid being around people who are smoking (secondhand smoke). ? Keep all follow-up visits. This is important. Contact a health care provider if: ? You have a fever. ? Your symptoms get (more content not included)... Normal [facility] TAWNYA HERRING ([id number]) 1995 F Date Time Provider Department 07/16/23 [facility] During your visit today, we recorded the following information about you: Kenan Gomez 07/16/2023 9:40 AM Signed LVM to let [...] Encounter Status:Closed by KENAN GOMEZ on 07/16/23 [facility] CNOVon 06-08-2023 CNOV Office Visit (OTOLLN ) TAWNYA HERRING ([id number]) 1995 F Date Time Provider Department 06/08/23 1:50 PM [facility] GAN During your visit today, we recorded [...] will be in touch with results via BeMyGuest HPI: Tawnya is a 27 year old [...] Low Allergies (more content not included)... Normal [facility] thyroidon 05-06-[address] [facility] [place] [address] Ultrasound Report Signed Patient: Tawnya Herring MR#: [id number] 28 : 1995 Acct:[id number] Age/Sex: 27 / F ADM Date: 05/06/23 Loc: Room: Type: [facility] Attending Dr: Darwin Jones APRN Ordering Provider: [...] Aleisha Tapia M.D.05/06/2023 4:17 PM Dictation Location: [place] [address] Tech: Dilcia Ross Transcribed By: AGUILAR 05/06/23 1617 Dictated By: Aleisha Tapia MD 05/06/23 1552 Signed By: 05/06/23 1617 Normal [facility] Alanine aminotransferase [En zymatic activity/volume] in Serum or PlasmaOrdered By: Addi Ortega on 04-08-2023 ALT [Catalytic activity/Vol] 28 U/L Normal 7-52 [facility] Comment on above: Performed By: #### P ILLAR TSH, PILLAR LIPID, PILLAR CBC, PILLAR BMP #### [facility] [address] [place] [address] [place] Albumin [Mass/volume] in Ser um or Plasma by Bromocresol green (BCG) dye binding methoOrdered By: Addi Ortega on 04-08-2023 Albumin BCG dye [Mass/Vol] 4.8 g/dL 3.5-5.7 [facility] Alkaline phosphatase [Enzyma tic activity/volume] in Serum or PlasmaOrdered By: Addi Ortega on 04-08-2023 ALP [Catalytic activity/Vol] 61 U/L Normal 34-104 [facility] Comment on above: Performed By: #### P ILLAR TSH, PILLAR LIPID, PILLAR CBC, PILLAR BMP #### [facility] [address] [place] [address] [place] Aspartate aminotransferase [ Enzymatic activity/volume] in Serum or PlasmaOrdered By: Addi Ortega on 04-08-2023 AST [Catalytic activity/Vol] 13 U/L Normal 13-39 [facility] Comment on above: Performed By: #### P ILLAR TSH, PILLAR LIPID, PILLAR CBC, PILLAR BMP #### [facility] [address] [place] [address] [place] Automated basophil %Ordered By: Addi Ortega on 04-08-2023 Basophils/100 WBC (Bld) 0.4 % Normal . F [facility] Comment on above: Performed By: #### P ILLAR TSH, PILLAR LIPID, PILLAR CBC, PILLAR BMP #### [facility] [address] [place] [address] [place] Automated basophil countOrde red By: Addi Ortega on 04-08-2023 Basophils (Bld) [#/Vol] 0.0 10*3/uL Normal 0.0-0.2 [facility] Comment on above: Result Comment: PERF ORMED BY: [place] [address] PATHOLOGIST LAY OUT TECHNICIAN JORDI SMITH M.D. Performed By: #### P ILLAR TSH, PILLAR LIPID, PILLAR CBC, PILLAR BMP #### [address] Automated blood monocyte cou ntOrdered By: Addi Ortega on 04-08-2023 Monocytes (Bld) [#/Vol] 0.4 10*3/uL Normal 0.0-0.8 [facility] Comment on above: Performed By: #### P ILLAR TSH, PILLAR LIPID, PILLAR CBC, PILLAR BMP #### [address] Automated eosinophil %Ordere d By: Addi Ortega on 04-08-2023 Eosinophils/100 WBC (Bld) 1.3 % Normal . [facility] Comment on above: Performed By: #### P ILLAR TSH, PILLAR LIPID, PILLAR CBC, PILLAR BMP #### [address] Automated eosinophil countOr dered By: Addi Ortega on 04-08-2023 Eosinophils (Bld) [#/Vol] 0.1 10*3/uL Normal 0.0-0.45 [facility] Comment on above: Performed By: #### P ILLAR TSH, PILLAR LIPID, PILLAR CBC, PILLAR BMP #### [address] Automated monocyte %Ordered By: Addi Ortega on 04-08-2023 Monocytes/100 WBC (Bld) 5.8 % Normal . F [facility] Comment on above: Performed By: #### P ILLAR TSH, PILLAR LIPID, PILLAR CBC, PILLAR BMP #### [place] [address] [place] Automated neutrophil %Ordere d By: Addi Ortega on 04-08-2023 Neutrophils/100 WBC (Bld) 53.9 % Normal . [facility] Comment on above: Performed By: #### P ILLAR TSH, PILLAR LIPID, PILLAR CBC, PILLAR BMP #### [facility] [address] Bilirubin.total [Mass/volume ] in Serum or PlasmaOrdered By: Addi Ortega on 04-08-2023 Bilirubin [Mass/Vol] 0.4 mg/dL Normal 0.3-1.0 [facility] Comment on above: Performed By: #### P ILLAR TSH, PILLAR LIPID, PILLAR CBC, PILLAR BMP #### [facility] [address] Calcium [Mass/volume] in Ser um or PlasmaOrdered By: Addi Ortega on 04-08-2023 Calcium [Mass/Vol] 9.5 mg/dL Normal 8.6-10.3 [facility] Comment on above: Performed By: #### P ILLAR TSH, PILLAR LIPID, PILLAR CBC, PILLAR BMP #### [facility] [address] [place] [address] [place] Carbon dioxide, total [Moles /volume] in Serum or PlasmaOrdered By: Addi Ortega on 04-08-2023 CO2 [Moles/Vol] 25.4 mmol/L Normal 21.0-31.0 [facility] Comment on above: Performed By: #### P ILLAR TSH, PILLAR LIPID, PILLAR CBC, PILLAR BMP #### [facility] [address] [place] [address] [place] Chloride [Moles/volume] in S ghada or PlasmaOrdered By: Addi Ortega on 04-08-2023 Chloride [Moles/Vol] 106 mmol/L Normal 98-107 [facility] Comment on above: Performed By: #### P ILLAR TSH, PILLAR LIPID, PILLAR CBC, PILLAR BMP #### [facility] [address] [place] [address] [place] Cholesterol [Mass/volume] in Serum or PlasmaOrdered By: Addi Ortega on 04-08-2023 Cholesterol [Mass/Vol] 162 mg/dL Normal 140-200 [facility] Comment on above: Chol less than 200 m g/dl low riskChol 201-239 mg/dl borderline riskChol 240 mg/dl and greater high risk Result Comment: Chol less than 200 mg/dl low risk Chol 201-239 mg/dl borderline risk Chol 240 mg/dl and greater high risk Performed By: #### P ILLAR TSH, PILLAR LIPID, PILLAR CBC, PILLAR BMP #### [facility] [address] Cholesterol in LDL Calc [Mas s/Vol]Ordered By: Addi Ortega on 04-08-2023 Cholesterol in LDL [Mass/Vol] 99 mg/dL 0-100 [facility] Comment on above: LDL ATP III CLASSIFI CATIONLDL less than 100 mg/dL OptimalLDL 100-129 mg/dL Near or above optimalLDL 130-159 mg/dL Borderline highLDL 160-189 mg/dL HighLDL greater than 189 mg/dL Very high Cholesterol in VLDL Calc [Ma ss/Vol]Ordered By: Addi Ortega on 04-08-2023 Cholesterol in VLDL [Mass/Vol] 18 mg/dL [facility] Creatinine [Mass/volume] in Serum or PlasmaOrdered By: Addi Ortega on 04-08-2023 Creatinine [Mass/Vol] 0.59 mg/dL Low 0.60-1.20 [facility] Comment on above: Performed By: #### P ILLAR TSH, PILLAR LIPID, PILLAR CBC, PILLAR BMP #### [facility] [address] Employee Comp Metabolic Pane samy 04-08-2023 Albumin [Mass/Vol] 4.8 g/dL Normal 3.5-5.7 [facility] Comment on above: Performed By: #### P ILLAR TSH, PILLAR LIPID, PILLAR CBC, PILLAR BMP #### [facility] [address] [place] [id number] [facility] GFR/1.73 sq M.predicted MDRD (S/P/Bld) [Vol rate/Area] mL/min/{1.73_m2} Normal [facility] Comment on above: Performed By: #### P ILLAR TSH, PILLAR LIPID, PILLAR CBC, PILLAR BMP #### [facility] [address] Employee Complete Blood Coun ton 04-08-2023 Mean Corpuscular HGB Conc 34.5 g/dL Normal 32.0-35.0 [facility] Comment on above: Performed By: #### P ILLAR TSH, PILLAR LIPID, PILLAR CBC, PILLAR BMP #### [address] NRBC% 0.0 /100{WBC} Normal 0-0.[address] [facility] Comment on above: Performed By: #### P ILLAR TSH, PILLAR LIPID, PILLAR CBC, PILLAR BMP #### [address] Employee Lipid Profileon LDL Cholesterol,Calculated 99 mg/dL Normal 0-100 [facility] Comment on above: Result Comment: LDL ATP III CLASSIFICATION LDL less than 100 mg/dL Optimal LDL 100-129 mg/dL Near or above optimal LDL 130-159 mg/dL Borderline high LDL 160-189 mg/dL High LDL greater than 189 mg/dL Very high Performed By: #### P ILLAR TSH, PILLAR LIPID, PILLAR CBC, PILLAR BMP #### [address] Triglyceride w/Reflex 92 mg/dL Normal 0-149 [facility] Comment on above: Result Comment: TRIG ATP III CLASSIFICATION TRIG less than 150 mg/dL Normal TRIG 150-199 mg/dL Borderline high TRIG 200-500 mg/dL High TRIG greater than 500 mg/dL Very high Standard traceable to the Center for Disease Conrtrol and Prevention (CDC) test method. Performed By: #### P ILLAR TSH, PILLAR LIPID, PILLAR CBC, PILLAR BMP #### [address] VLDL CHOLESTEROL 18 mg/dL Normal [facility] Comment on above: Performed By: #### P ILLAR TSH, PILLAR LIPID, PILLAR CBC, PILLAR BMP #### [address] Employee Thyroid Stim Hormon gokul 04-08-2023 Employee Thyroid Stim Hormone 4.55 u[iU]/mL Normal 0.45-5.33 [facility] Comment on above: Result Comment: PERF ORMED BY: [place] [address] PATHOLOGIST LAY OUT TECHNICIAN JORDI SMITH M.D. Performed By: #### P ILLAR TSH, PILLAR LIPID, PILLAR CBC, PILLAR BMP #### [address] Erythrocyte distribution wid th [Ratio] by Automated countOrdered By: Addi Ortega on 04-08-2023 Erythrocyte distribution width (RBC) [Ratio] 12.6 % Normal 11.9-15.3 [facility] Comment on above: Performed By: #### P ILLAR TSH, PILLAR LIPID, PILLAR CBC, PILLAR BMP #### [address] Erythrocytes [#/volume] in B lood by Automated countOrdered By: Addi Ortega on 04-08-2023 RBC (Bld) [#/Vol] 4.29 10*6/uL Normal 3.60-5.00 [facility] Comment on above: Performed By: #### P ILLAR TSH, PILLAR LIPID, PILLAR CBC, PILLAR BMP #### [address] Glucose [Mass/volume] in Ser um or PlasmaOrdered By: Addi Ortega on 04-08-2023 Glucose [Mass/Vol] 83 mg/dL Normal 70-100 [facility] Comment on above: Performed By: #### P ILLAR TSH, PILLAR LIPID, PILLAR CBC, PILLAR BMP #### [address] Hematocrit [Volume Fraction] of Blood by Automated countOrdered By: Addi Ortega on 04-08-2023 Hematocrit (Bld) [Volume fraction] 39.3 % Normal 34.0-46.4 [facility] Comment on above: Performed By: #### P ILLAR TSH, PILLAR LIPID, PILLAR CBC, PILLAR BMP #### [facility] [address] Hemoglobin [Mass/volume] in BloodOrdered By: Addi Ortega on 04-08-2023 Hemoglobin (Bld) [Mass/Vol] 13.6 g/dL Normal 11.8-15.4 [facility] Comment on above: Performed By: #### P ILLAR TSH, PILLAR LIPID, PILLAR CBC, PILLAR BMP #### [facility] [address] Leukocytes [#/volume] correc hamilton for nucleated erythrocytes in Blood by Automated counOrdered By: Addi Ortega on 04-08-2023 WBC corrected for nucl RBC Auto (Bld) [#/Vol] 7.6 10*3/uL 3.8-11.6 [facility] Leukocytes [#/volume] in Blo od by Automated countOrdered By: Addi Ortega on 04-08-2023 WBC (Bld) [#/Vol] 7.6 10*3/uL Normal 3.8-11.6 [facility] Comment on above: Performed By: #### P ILLAR TSH, PILLAR LIPID, PILLAR CBC, PILLAR BMP #### [facility] [address] [place] [address] [place] Lymphocytes [#/volume] in Bl ood by Automated countOrdered By: Addi Ortega on 04-08-2023 Lymphocytes (Bld) [#/Vol] 2.9 10*3/uL Normal 1.00-4.8 [facility] Comment on above: Performed By: #### P ILLAR TSH, PILLAR LIPID, PILLAR CBC, PILLAR BMP #### [facility] [address] [place] [address] [place] Lymphocytes/100 leukocytes i n Blood by Automated countOrdered By: Addi Ortega on 04-08-2023 Lymphocytes/100 WBC (Bld) 38.6 % Normal . [facility] Comment on above: Performed By: #### P ILLAR TSH, PILLAR LIPID, PILLAR CBC, PILLAR BMP #### [facility] [address] MCH [Entitic mass] by Automa hamilton countOrdered By: Addi Ortega on 04-08-2023 MCH (RBC) [Entitic mass] 31.6 pg Normal 24.7-34.3 [facility] Comment on above: Performed By: #### P ILLAR TSH, PILLAR LIPID, PILLAR CBC, PILLAR BMP #### [facility] [address] MCHC Auto (RBC) [Mass/Vol]Or dered By: Addi Ortega on 04-08-2023 MCHC (RBC) [Mass/Vol] 34.5 g/dL 32.0-35.0 [facility] MCV [Entitic volume] by Auto mated countOrdered By: Addi Ortega on 04-08-2023 MCV (RBC) [Entitic vol] 91.7 fL Normal 80-100 [facility] Comment on above: Performed By: #### P ILLAR TSH, PILLAR LIPID, PILLAR CBC, PILLAR BMP #### [facility] [address] [place] [address] Neutrophils [#/volume] in Bl ood by Automated countOrdered By: Addi Ortega on 04-08-2023 Neutrophils (Bld) [#/Vol] 4.1 10*3/uL Normal 1.8-7.7 [facility] Comment on above: Performed By: #### P ILLAR TSH, PILLAR LIPID, PILLAR CBC, PILLAR BMP #### [facility] [address] Nicotine Metabolite, QualOrd ered By: Addi Ortega on 04-08-2023 Nicotine Metabolite Negative Normal Cutoff=25 [facility] Comment on above: Performed at: [facility] [address] [id number] Director: Catherine Mendoza MD, Phone: [phone] Result Comment: Perf ormed at: [facility] - [facility] [address] [id number] Recreation Engineer: Catherine Mendoza MD, Phone: [phone] PERFORMED BY: [place] [address] PATHOLOGIST LAY OUT TECHNICIAN JORDI SMITH M.D. Performed By: #### P ILLAR TSH, PILLAR LIPID, PILLAR CBC, PILLAR BMP #### [facility] [address] No Panel InformationOrdered By: Addi Ortega on 04-08-2023 Estimated GFR (CKD-EPI) > 60.0 mL/Min [facility] Creatinine Clearance (Chem N/A [facility] Nucleated erythrocytes [Pres ence] in Blood by Automated countOrdered By: Addi Ortega on 04-08-2023 Nucleated RBC Auto Ql (Bld) 0.0 /100{WBC} 0-0.5 [facility] Platelet mean volume [Entiti c volume] in Blood by Automated countOrdered By: Addi Ortega on 04-08-2023 Platelet mean volume (Bld) [Entitic vol] 8.6 fL Normal 6.3-10.7 [facility] Comment on above: Performed By: #### P ILLAR TSH, PILLAR LIPID, PILLAR CBC, PILLAR BMP #### [facility] [address] Platelets [#/volume] in Bloo d by Automated countOrdered By: Addi Ortega on 04-08-2023 Platelets (Bld) [#/Vol] 361 10*3/uL Normal 150-450 [facility] Comment on above: Performed By: #### P ILLAR TSH, PILLAR LIPID, PILLAR CBC, PILLAR BMP #### [facility] [address] [place] [address] [place] Potassium [Moles/volume] in Serum or PlasmaOrdered By: Addi Ortega on 04-08-2023 Potassium [Moles/Vol] 4.6 mmol/L Normal 3.5-5.1 [facility] Comment on above: Performed By: #### P ILLAR TSH, PILLAR LIPID, PILLAR CBC, PILLAR BMP #### [facility] [address] Protein [Mass/volume] in Ser um or PlasmaOrdered By: Addi Ortega on 04-08-2023 Protein [Mass/Vol] 7.5 g/dL Normal 6.4-8.9 [facility] Comment on above: Performed By: #### P ILLAR TSH, PILLAR LIPID, PILLAR CBC, PILLAR BMP #### [facility] [address] Serum globulin measurement b y calculation (mass/volume)Ordered By: Addi Ortega on 04-08-2023 Globulin (S) [Mass/Vol] 2.7 g/dL Normal [facility] Comment on above: Performed By: #### P ILLAR TSH, PILLAR LIPID, PILLAR CBC, PILLAR BMP #### [facility] [address] [place] [address] Serum or plasma albumin/glob ulin mass ratioOrdered By: Addi Ortega on 04-08-2023 Albumin/Globulin [Mass ratio] 1.8 {ratio} Normal [facility] Comment on above: Performed By: #### P ILLAR TSH, PILLAR LIPID, PILLAR CBC, PILLAR BMP #### [facility] [address] [place] [address] Serum or plasma anion gap de terminationOrdered By: Addi Ortega on 04-08-2023 Anion gap [Moles/Vol] 12.2 mmol/L Normal 6.0-15.0 [facility] Comment on above: Performed By: #### P ILLAR TSH, PILLAR LIPID, PILLAR CBC, PILLAR BMP #### [facility] [address] [place] [address] Serum or plasma high density lipoprotein (HDL) cholesterol measurementOrdered By: Addi Ortega on 04-08-2023 Cholesterol in HDL [Mass/Vol] 45 mg/dL Normal 23-92 [facility] Comment on above: HDL CHOL ATP-III CLA SSIFICATION Cardiovascular RiskHDL > or equal to 60 mg/dL LOWHDL < 40 mg/dL HIGH Result Comment: HDL CHOL ATP-III CLASSIFICATION Cardiovascular Risk HDL > or equal to 60 mg/dL LOW HDL < 40 mg/dL HIGH Performed By: #### P ILLAR TSH, PILLAR LIPID, PILLAR CBC, PILLAR BMP #### [facility] [address] Serum or plasma total choles terol/high density lipoprotein (HDL) cholesterol mass ratOrdered By: Addi Ortega on 04-08-2023 Cholesterol.total/Alexandra sterol in HDL [Mass ratio] 3.6 {ratio} Normal <5.0 [facility] Comment on above: Performed By: #### P ILLAR TSH, PILLAR LIPID, PILLAR CBC, PILLAR BMP #### [facility] [address] Sodium [Moles/volume] in Ser um or PlasmaOrdered By: Addi Ortega on 04-08-2023 Sodium [Moles/Vol] 139 mmol/L Normal 136-145 [facility] Comment on above: Performed By: #### P ILLAR TSH, PILLAR LIPID, PILLAR CBC, PILLAR BMP #### [facility] [address] Thyrotropin [Units/volume] i n Serum or PlasmaOrdered By: Addi Ortega on 04-08-2023 TSH Qn 4.55 m[IU]/L 0.45-5.33 [facility] Triglyceride [Mass/volume] i n Serum or PlasmaOrdered By: Addi Ortega on 04-08-2023 Triglyceride [Mass/Vol] 92 mg/dL 0-149 F [facility] Comment on above: TRIG ATP III CLASSIF ICATIONTRIG less than 150 mg/dL NormalTRIG 150-199 mg/dL Borderline highTRIG 200-500 mg/dL High TRIG greater than 500 mg/dL Very highStandard traceable to the Center for Disease Conrtrol and Prevention (CDC) test method. Urea nitrogen [Mass/volume] in Serum or PlasmaOrdered By: Addi Ortega on 04-08-2023 Urea nitrogen [Mass/Vol] 18 mg/dL Normal 7-25 [facility] Comment on above: Performed By: #### P ILLAR TSH, PILLAR LIPID, PILLAR CBC, PILLAR BMP #### [facility] [address] [place] [address] [facility] C Urineon 03-24-2023 Bacteria identified Cx Nom [...] Locations R1: This test was performed at: [facility], [address] [place] [address], [id number] , [place], Normal [facility] Comment on above: Performed By: #### 2 [id number], [id number], [id number], [id number], [id number], [id number] #### [facility] [address] [place] [address] Abdomen/Pelvis w/o Contra ston 03-23-2023 CT [...] Oral contrast amount in ml's: 0 Normal [facility] Discharge Instructionson Discharge Instructions [id number]# 1.00CD:127 Normal [facility] ED Note-Physicianon 03-23-20 ED Note-Physician Basic Information Time Seen: Hector Correa PA-C. 03/22/2023 20:14 Chief Complaint Pt. presetns to [...] any medications. States that she was at [facility], where she did wait about 5 hours [...] and Complexity of Problems Differential Diagnosis: [] [facility] Data External documents reviewed: [] My EKG [...] day(s), # 28 cap(s), Refills(s) 0, Pharmacy: [facility], 170.2, cm, 03/22/23 20:14:00 EDT, Height/Length Dosing, 113.5, kg, 03/22/23 20:14:00 EDT, Weight Dosing ketorolac, 30 mg = 1 mL, Injection, IV Push, Once, Stop date 03/22/23 20:51:00 EDT, STAT, Start date 03/22/23 20:51:00 EDT, 03/22/23 20:51:00 EDT ondansetron, 4 mg = 2 mL, Injection, IV Push, Once, Stop date 03/22 (more content not included)... Normal [facility] Comment on above: Result Comment: Elec tronically Signed By: Hector Correa PA-C\.br\Date and Time Signed: 03/22/23 23:35 EDT\.br\Electronically Co-Signed By: Gabriel Curtis DO\.br\Date and Time Co-Signed: 03/23/23 03:21 EDT RAD - Preliminary Cat Scan R eporton 03-23-2023 RAD - Preliminary Cat Scan Report [id number] 1.00CD:127 Normal [facility] Auto Diffon 03-22-2023 Basophils/100 WBC (Bld) 0.5 % Normal 0.0-2.0 [facility] Comment on above: Order Comment: Order Added by Discern Expert. Performed By: #### 2 918882, 5537996, 98275129, 9020812, 7337299, 3072414 #### [facility] [address] [place] [address] Basophils/Leukocytes Auto (Bld) [Pure # fraction] 0.0 E9/L Normal 0.0-0.2 [facility] Comment on above: Order Comment: Order Added by Discern Expert. Performed By: #### 2 616858, 7623820, 36297976, 4219591, 0216231, 5636916 #### [facility] [address] [place] [address] Eosinophils/100 WBC (Bld) 1.5 % Normal 0.0-8.0 [facility] Comment on above: Order Comment: Order Added by Discern Expert. Performed By: #### 2 601611, 0718106, 76100694, 8231281, 4257892, 1565302 #### [facility] [address] [place] [address] Eosinophils/Leukocytes Auto (Bld) [Pure # fraction] 0.1 E9/L Normal 0.0-0.5 [facility] Comment on above: Order Comment: Order Added by Discern Expert. Performed By: #### 2 224952, 3890944, 79350718, 5095760, 5652403, 2930254 #### [facility] [address] [place] [address] Lymphocytes/100 WBC (Bld) 34.9 % Normal 14.0-50.0 [facility] Comment on above: Order Comment: Order Added by Discern Expert. Performed By: #### 2 262195, 6429600, 89970504, 0006325, 6048634, 4050113 #### [facility] [address] [place] [address] Lymphocytes/Leukocytes Auto (Bld) [Pure # fraction] 3.4 E9/L Normal 1.0-4.0 [facility] Comment on above: Order Comment: Order Added by Mundo Expert. Performed By: #### 2 899542, 2821638, 99491156, 6715462, 3709146, 1701308 #### [facility] [address] [place] [address] Monocytes/100 WBC (Bld) 6.0 % Normal 4.0-14.0 [facility] Comment on above: Order Comment: Order Added by Mundo Expert. Performed By: #### 2 771703, 7049437, 49934030, 8175726, 5564176, 7971193 #### [facility] [address] [place] [address] Monocytes/Leukocytes Auto (Bld) [Pure # fraction] 0.6 E9/L Normal 0.2-1.0 [facility] Comment on above: Order Comment: Order Added by Mundo Expert. Performed By: #### 2 008204, 0762316, 06173887, 7176860, 4077532, 4865160 #### [facility] [address] [place] [address] Neutrophils/100 WBC (Bld) 57.1 % Normal 36.0-75.0 [facility] Comment on above: Order Comment: Order Added by Mundo Expert. Performed By: #### 2 506905, 5677865, 56199813, 4217916, 1118232, 1278176 #### [facility] [address] [place] [address] Neutrophils/Leukocytes Auto (Bld) [Pure # fraction] 5.6 E9/L Normal 2.0-7.5 [facility] Comment on above: Order Comment: Order Added by Discern Expert. Performed By: #### 2 487558, 1244181, 54618741, 6557780, 5397505, 6444156 #### [facility] [address] [place] [address] BMPon 03-22-2023 Creatinine [Mass/Vol] 0.5 mg/dL Normal 0.5-1.3 [facility] Comment on above: Performed By: #### 2 925373, 3714437, 88157386, 6369389, 7247706, 4796343 #### [facility] [address] [place] [address] Urea nitrogen [Mass/Vol] 15 mg/dL Normal 5-21 [facility] Comment on above: Performed By: #### 2 132894, 2327515, 52541715, 0296013, 0811759, 3730858 #### [facility] [address] [place] [address] Urea nitrogen/Creatinine [Mass ratio] 30 No Units High 10-20 [facility] Comment on above: Performed By: #### 2 312776, 2586526, 37105744, 2885951, 3316493, 6582954 #### [facility] [address] [place] [address] Anion gap [Moles/Vol] 15 mmol/L Normal 6-16 [facility] Comment on above: Performed By: #### 2 632796, 5428889, 46028697, 4704640, 2774011, 7743430 #### [facility] [address] [place] [address] Calcium [Mass/Vol] 9.6 mg/dL Normal 8.9-11.1 [facility] Comment on above: Performed By: #### 2 271671, 8020449, 85185742, 4149084, 1737573, 1249577 #### [facility] [address] [place] [address] Chloride [Moles/Vol] 103 mmol/L Normal 101-111 [facility] Comment on above: Performed By: #### 2 231104, 9070105, 66528681, 6360205, 4542024, 5750051 #### [facility] [address] [place] [address] CO2 [Moles/Vol] 23 mmol/L Normal 21-31 [facility] Comment on above: Performed By: #### 2 213639, 8604259, 26103391, 0872449, 2379666, 0448192 #### [facility] [address] [place] [address] Glucose [Mass/Vol] 84 mg/dL Normal 55-199 [facility] Comment on above: Result Comment: If t his glucose result represents a fasting glucose, interpretation should refer to the following reference range: 55-99 mg/dL Performed By: #### 2 760959, 9423003, 76273272, 3983523, 6113258, 4559907 #### [facility] [address] [place] [address] Potassium [Moles/Vol] 3.7 mmol/L Normal 3.5-5.3 [facility] Comment on above: Performed By: #### 2 433165, 0245273, 97612044, 3371480, 2881591, 6844936 #### [facility] [address] [place] [address] Sodium [Moles/Vol] 137 mmol/L Normal 135-145 [facility] Comment on above: Performed By: #### 2 609252, 3279221, 84494821, 5154049, 2146472, 5824217 #### [facility] [address] [place] [address] CBC w/ Auto Diffon 3 Erythrocyte distribution width (RBC) [Ratio] 12.5 % Normal 10.9-14.2 [facility] Comment on above: Performed By: #### 2 710534, 6423548, 54640475, 9976956, 5568381, 3124236 #### [facility] [address] [place] [address] Hematocrit (Bld) [Volume fraction] 37.7 % Normal 34.0-46.0 [facility] Comment on above: Performed By: #### 2 894503, 2299954, 78094482, 1530228, 6242705, 1586024 #### [facility] [address] [place] [address] Hemoglobin (Bld) [Mass/Vol] 13.1 g/dL Normal 12.0-16.0 [facility] Comment on above: Performed By: #### 2 745841, 2544084, 15406451, 1121579, 3270231, 3327695 #### [facility] [address] [place] [address] MCH (RBC) [Entitic mass] 31.9 pg Normal 27.0-34.0 [facility] Comment on above: Performed By: #### 2 829897, 3270556, 14538557, 1781615, 8226534, 2104222 #### [facility] [address] [place] [address] MCHC (RBC) [Mass/Vol] 34.8 g/dL Normal 31.4-36.0 [facility] Comment on above: Performed By: #### 2 927358, 8623382, 73973267, 7826853, 4824458, 7165582 #### [facility] [address] [place] [address] MCV (RBC) [Entitic vol] 91.6 fL Normal 80.0-100.0 [facility] Comment on above: Performed By: #### 2 657335, 8135775, 03604912, 4222529, 1876224, 3292869 #### [facility] [address] [place] [address] Platelet mean volume (Bld) [Entitic vol] 7.6 fL Normal 6.4-10.8 [facility] Comment on above: Performed By: #### 2 953456, 9924746, 53384720, 8982039, 2332685, 4621493 #### [facility] [address] [place] [address] Platelets (Bld) [#/Vol] 306.0 E9/L Normal 150.0-500.0 [facility] Comment on above: Performed By: #### 2 892262, 7651007, 80947658, 1966189, 3971199, 7749837 #### [facility] [address] [place] [address] RBC (Bld) [#/Vol] 4.1 E12/L Low 4.3-5.9 [facility] Comment on above: Performed By: #### 2 572117, 7012692, 38936276, 4265072, 9597669, 7362465 #### [facility] [address] [place] [address] WBC corrected for nucl RBC Auto (Bld) [#/Vol] 9.8 E9/L Normal 4.0-11.0 [facility] Comment on above: Performed By: #### 2 610173, 5546131, 77417835, 0714115, 1218682, 9295292 #### [facility] [address] [place] [address] CHEMISTRYOrdered By: SYSTEM SYSTEM on 03-22-2023 Albumin [...] 23 mmol/L Normal 21 - 31 mmol/L [facility] Creatinine [Mass/Vol] 0.5 mg/dL Normal 0.5 - 1.3 mg/dL [facility] GFR/1.73 sq M.predicted among non-blacks MDRD (S/P/Bld) [Vol rate/Area] 133 mL/min/1.73 m2 Normal >=59mL/min/ 1.73 m2 [facility] Chem S Globulin (S) [Mass/Vol] 3.1 g/dL Normal 1.4 - 4.0 gm/dL [facility] Glucose [Mass/Vol] 84 mg/dL Normal 55 - 199 mg/dL [facility] Lipase [Catalytic activity/Vol] 28 U/L Normal 13 - 58 unit/L [facility] Potassium [Moles/Vol] 3.7 mmol/L Normal 3.5 - 5.3 mmol/L [facility] Protein [Mass/Vol] 7.3 g/dL Normal 6.0 - 7.8 gm/dL [facility] Sodium [Moles/Vol] 137 mmol/L Normal 135 - 145 mmol/L [facility] Urea nitrogen [Mass/Vol] 15 mg/dL Normal 5 - 21 mg/dL [facility] Urea nitrogen/Creatinine [Mass ratio] 30 mg/mg High 10 - 20 [facility] Remisol Consent for Treatmenton 08-0 Consent for Treatment [id number]:127 Normal [facility] ED Clinical Summaryon 2022 ED Clinical Summary [place] [id number] ED Clinical Summary Person Information Name: TAWNYA HERRING [facility] Age: 27 Years : 1995 Sex: Female Language: Beninese PCP: DARWIN JONES CNP Marital Status: Single Phone: [phone] Visit Id: Visit Reason: Dysuria; Nausea; Flank [...] 03/22/2023 22:52:44 03/22/2023 22:52:44 03/22/2023 22:52:44 ADDRESS: [address] [place] [phone] PHYS DOC NOTES: MEDICAL INFORMATION: Prescriptions Given: New Medications [facility], [address] [place], [place] [id number], [phone] cephalexin (Keflex 500 mg Cap) 1 Capsules By Mouth every 6 hours for 7 Days. Refills: 0. Medications to Continue with No Changes Other Medications acetaminophen-hydroco done ([place] 325 mg-5 mg oral tablet) 2 Tablets [...] EDUCATION INFORMATION: Instructions: Urinary Tract Infection, Adult, Qquj-hk-Auvv Follow up: With: [facility]: [facility] [address] [facility] [place] [phone] Business (1) In 3 days 03/25/2023 Comments: Follow-up with your primary care provider in 3 to 5 days. If symptoms worsen, do not improve, or new symptoms arise please report back to emergency department for further evaluation. DIAGNOSIS: UTI (urinary tract infection) Normal [facility] ED Patient Education Noteon 03-22-2023 ED Patient [...] these instructions at home: Medicines ? Take ycsi-txt-xiydyog and prescription medicines only as told by [...] Reviewed: 03/14/2021 Elsevier Patient Education ? 2022 [employer] Normal [facility] ED Patient Summaryon 023 ED Patient Summary [place] [id number] Patient Discharge Instructions Person Information Name: TAWNYA HERRING Age: 27 Years Arrival Date: 03/22/2023 19:52:37 Discharge Diagnosis: UTI (urinary tract infection) Primary Care Physician: DARWIN JONES CNP Provider Information Primary Provider: Gabriel Curtis DO Advanced Cover Creaser:None The exam and treatment you received in the Emergency Department were for an urgent problem and are not intended as complete care. It is important that you follow up with a doctor, nurse practitioner, or physician?s call center assistant for ongoing care. If your symptoms [...] Follow-up Instructions: With: Address: When: DARWIN JONES [address] [place] [phone] Business (1) In 3 days 03/25/2023 Comments: [...] Patient Education Materials: Urinary Tract Infection, Adult, Bbpr-uf-Ghix A MESSAGE TO ALL PATIENTS REGARDING OPIOIDS PRESCRIPTION OPIOIDS: WHAT YOU NEED TO KNOW Prescription opioids can be used to help relieve kjbkoqej-ux-lxqeyx pain and are often prescribed following a [...] risks of op (more content not included)... [facility] HEMATOLOGYOrdered By: SYSTEM SYSTEM on 03-22-2023 Basophils/100 [...] 12.5 % Normal 10.9 - 14.2 % [facility] HemeAutoSS Hematocrit (Bld) [Volume fraction] 37.7 % Normal 34.0 - 46.0 % [facility] HemeAutoSS Hemoglobin (Bld) [Mass/Vol] 13.1 g/dL Normal 12.0 - 16.0 gm/dL [facility] HemeAutoSS MCH (RBC) [Entitic mass] 31.9 pg Normal 27.0 - 34.0 pg [facility] HemeAutoSS MCHC (RBC) [Mass/Vol] 34.8 g/dL Normal 31.4 - 36.0 gm/dL [facility] HemeAutoSS MCV (RBC) [Entitic vol] 91.6 fL Normal 80.0 - 100.0 fL [facility]eAuto[facility] Platelet mean volume (Bld) [Entitic vol] 7.6 fL Normal 6.4 - 10.8 fL [facility] HemeAutoSS Platelets (Bld) [#/Vol] 306.0 E9/L Normal 150. 0 - 500.0 E9/L [facility] HemeAutoSS RBC (Bld) [#/Vol] 4.1 E12/L Low 4.3 - 5.9 E12/L [facility] HemeAutoSS WBC corrected for nucl RBC Auto (Bld) [#/Vol] 9.8 E9/L Normal 4.0 - 11.0 E9/L [facility] HemeAutoSS Hep Func Panelon 03-22-2023 Albumin [Mass/Vol] 4.2 g/dL Normal 3.3-5.0 [facility] Comment on above: Performed By: #### 2 711716, 3895057, 78592442, 6441082, 2344670, 9708703 #### [facility] [address] [place] [address] Albumin/Globulin (S) [Mass conc ratio] 1.4 Normal 1.1-2.2 [facility] Comment on above: Performed By: #### 2 724226, 9811741, 99104191, 2328949, 6643466, 6308591 #### [facility] [address] [place] [address] ALP [Catalytic activity/Vol] 54 Int._Unit/L Normal 21-98 [facility] Comment on above: Performed By: #### 2 695966, 4148017, 67054602, 3737828, 2590593, 3163146 #### [facility] [address] [place] [address] ALT No additional P-5'-P [Catalytic activity/Vol] 24 Int._Unit/L Normal 6-46 [facility] Comment on above: Performed By: #### 2 139880, 6181856, 36932543, 7579347, 8744701, 9149202 #### [facility] [address] [place] [address] AST [Catalytic activity/Vol] 18 Int._Unit/L Normal 5-43 [facility] Comment on above: Performed By: #### 2 069981, 2468660, 34162930, 4511514, 0495574, 0570801 #### [facility] [address] [place] [address] Bilirubin [Mass/Vol] 0.7 mg/dL Normal 0.0-1.1 [facility] Comment on above: Performed By: #### 2 398570, 9471107, 66657868, 6788678, 9151596, 6815059 #### [facility] [address] [place] [address] Bilirubin.direct [Mass/Vol] 0.1 mg/dL Normal 0.1-0.4 [facility] Comment on above: Performed By: #### 2 015082, 5060361, 31136903, 8805922, 8949013, 6398413 #### [facility] [address] [place] [address] Bilirubin.indirect [Mass or moles/Vol] 0.6 mg/dL Normal 0.1-0.9 [facility] Comment on above: Performed By: #### 2 261818, 9570932, 17650592, 9745357, 6964742, 5874319 #### [facility] [address] [place] [address] Globulin (S) [Mass/Vol] 3.1 g/dL Normal 1.4-4.0 [facility] Comment on above: Performed By: #### 2 786600, 1425880, 31564174, 8028461, 5821857, 1845551 #### [facility] [address] [place] [address] Protein [Mass/Vol] 7.3 g/dL Normal 6.0-7.8 [facility] Comment on above: Performed By: #### 2 597142, 3694873, 47912175, 8220711, 8909485, 0279977 #### [facility] [address] [place] [address] Lipase Levelon 03-22-2023 Lipase [Catalytic activity/Vol] 28 U/L Normal 13-58 [facility] Comment on above: Performed By: #### 2 561721, 0241548, 63331814, 5562064, 9608456, 7804083 #### [facility] [address] [place] [address] SEROLOGYOrdered By: Lucina Shaikh on 03-22-2023 HCG.beta subunit (U) [Moles/Vol] Negative Normal [facility] Man Sero U BetaHcg Qualon 03-22-2023 HCG.beta subunit (U) [Moles/Vol] Negative Normal [facility] Comment on above: Performed By: #### 2 984247, 9497909, 53765260, 0463777, 1686539, 7010281 #### [facility] [address] [place] [address] UA With Cult Reflexon 2022 Bacteria LM Ql (Urine sed) TRACE Normal Trace [facility] Comment on above: Performed By: #### 2 734192, 1556244, 73819542, 3723493, 5953443, 6609316 #### [facility] [address] [place] [address] Bilirubin Ql (U) Negative Normal Negative [facility] Comment on above: Performed By: #### 2 074841, 8999964, 03806919, 6536748, 6275527, 5807037 #### [facility] [address] [place] [address] Clarity (U) SL CLOUDY Abnormal Clear [facility] Comment on above: Performed By: #### 2 750290, 3949327, 26298092, 6655661, 3568241, 6748564 #### [facility] [address] [place] [address] Color (U) YELLOW Normal Yellow [facility] Comment on above: Performed By: #### 2 462353, 0134507, 62267684, 3701058, 2287650, 4527307 #### [facility] [address] [place] [address] Crystals LM Ql (Urine sed) Present Normal [facility] Comment on above: Performed By: #### 2 756560, 4177405, 64744029, 5739225, 2888088, 5277030 #### [facility] [address] [place] [address] Epithelial cells.squamous LM.HPF (Urine sed) [#/Area] 0-2 Normal 0-2 [facility] Comment on above: Performed By: #### 2 268853, 0866505, 07718626, 2907853, 6689965, 2627046 #### [facility] [address] [place] 06[address] Glucose Test strip (U) [Mass/Vol] Negative Normal Negative [facility] Comment on above: Performed By: #### 2 379531, 9146639, 41838360, 9073887, 0781753, 1141309 #### [facility] [address] [place] [address] Hemoglobin Ql (U) 2+ Abnormal Negative [facility] Comment on above: Performed By: #### 2 199578, 7786444, 67104243, 0316866, 5555162, 9469579 #### [facility] [address] [place] [address] Ketones (U) [Mass/Vol] 1+ Abnormal Negative [facility] Comment on above: Performed By: #### 2 392077, 5117375, 73211418, 2853910, 9980041, 7105833 #### [facility] [address] [place] [address] [place].plasma/[place]. RBC (Bld) [Mass ratio] 0-3 Normal 0-3 [facility] Comment on above: Performed By: #### 2 004977, 4431692, 11385439, 3478787, 0608128, 3589251 #### [facility] [address] [place] [address] Mucus Ql (Urine sed) TRACE Normal [facility] Comment on above: Performed By: #### 2 733998, 3237280, 35380554, 9497422, 9698261, 1456680 #### [facility] [address] [place] [address] Nitrite Ql (U) Negative Normal Negative [facility] Comment on above: Performed By: #### 2 174690, 0162186, 23308122, 6720126, 5195137, 1050964 #### [facility] [address] [place] [address] pH (U) 5.5 [pH] Invalid Interpretation Code 5.0-9.0 [facility] Comment on above: Performed By: #### 2 740535, 8533613, 28966197, 2823347, 9244508, 7899965 #### [facility] [address] [place] [address] Protein (U) [Mass/Vol] Negative Normal Negative [facility] Comment on above: Performed By: #### 2 466233, 9933471, 82613918, 3004263, 6802395, 4701398 #### [facility] [address] [place] [address] Specific gravity (U) [Rel density] >=1.030 Invalid Interpretation Code 1.005-1.030 [facility] Comment on above: Performed By: #### 2 741723, 5774279, 63350278, 3794196, 0835849, 3502975 #### [facility] [address] [place] [address] Type of Urine collection method Clean Catch Normal [facility] Comment on above: Performed By: #### 2 248004, 6845048, 97298765, 5429361, 8271365, 4840588 #### [facility] [address] [place] [address] Urobilinogen Qn (U) 0.2 {Aly'U}/dL Normal 0.0-1.0 [facility] Comment on above: Performed By: #### 2 827205, 8065352, 96353772, 2964522, 4817269, 1525671 #### [facility] [address] [place] [address] WBC Auto Ql (U) 2+ Abnormal Negative [facility] Comment on above: Performed By: #### 2 600207, 9417721, 38216131, 0891495, 1081401, 0404370 #### [facility] [address] [place] [address] WBC LM.HPF (Urine sed) [#/Area] 16-25 Abnormal 0-5 [facility] Comment on above: Performed By: #### 2 527108, 2567394, 01045228, 0284206, 5450601, 4012033 #### [facility] [address] [place] [address] URINALYSISOrdered By: Elizabeth Shaikh on 03-22-2023 Bacteria [...] Interpretation Code Negative [facility] UA Auto SS [place].plasma/[place]. RBC (Bld) [Mass ratio] 0-3 /HPF Normal [...] Desc Clean Catch (03/22/23 8:17 PM) Normal [facility] UA Auto SS Urobilinogen Qn (U) 0.0898657 {Aly'U}/dL Normal 0.0 - 1.0 EU/dL [facility] UA Auto SS WBC Auto Ql (U) 2+ *ABN* (03/22/23 8:17 PM) Invalid Interpretation Code Negative [facility] UA Auto SS WBC LM.HPF (Urine sed) [#/Area] 16-25 /HPF Invalid Interpretation Code 0-5/HPF [facility] UA Auto SS eGFRon 03-22-2023 GFR/1.73 sq M.predicted among non-blacks MDRD (S/P/Bld) [Vol rate/Area] 133 mL/min/1.73 m2 Normal >=59 [facility] Comment on above: Order Comment: Order added by Discern Expert. Result Comment: Musculoskeletal Physician vinh kidney disease could be indicated at eGFR's of less than 60 mL/min/1.73m2. Kidney failure is indicated at less than 15 mL/min/1.73m2. Performed By: #### 2 548168, 7750220, 24667184, 7542654, 4047926, 9165630 #### [facility] [address] [place] [address] Alanine aminotransferase [En zymatic activity/volume] in Serum or PlasmaOrdered By: Zurdo Ortega on 07-16-2023 ALT [Catalytic activity/Vol] 21 U/L [facility] HIV 1 and HIV-2 antibody ass ay with HIV-1 p24 antigen detectionOrdered By: Zurdo Ortega on 02-28-2023 HIV 1+2 Ab+HIV1 p24 Ag IA Ql Non-Reactive Non Reactive [facility] Comment on above: HIV NegativeHIV-1/HI V-2 antibodies and HIV-1 p24 antigen were NOTdetected. There is no laboratory evidence of HIV infection. Hepatitis B virus surface Ag [Presence] in Serum or Plasma by ImmunoassayOrdered By: Zurdo Ortega on 02-28-2023 HBV surface Ag IA Ql Negative Negative [facility] Comment on above: Performed at: [place] [id number] Director: Alexis Ashton PhD, Phone: [phone] Hepatitis C virus IgG Ab [Pr esence] in Serum or Plasma by ImmunoassayOrdered By: Zurdo Ortega on 02-28-2023 HCV IgG IA Ql Non-Reactive Non Reactive [facility] No Panel InformationOrdered By: Zurdo Ortega on 02-28-2023 Hepatitis C Interpretation See comment . [facility] Comment on above: Not infected with HC V unless early or acute infection issuspected (which may be delayed in an immunocompromisedindividual), or other evidence exists to indicate HCVinfection. Serum hepatitis B virus surf nikolas antibody detectionOrdered By: Zurdo Ortega on 02-28-2023 HBV surface Ab Ql (S) Reactive . [facility] Comment on above: Non Reactive: Incons istent with immunity, less than 10 mIU/mL Reactive: Consistent with immunity, greater than 9.9 mIU/mL PAP ACOG PANEL 2: 21 to 29on 12-17-2022 . . Normal [facility] Comment on above: Performed By: #### 4 852654 #### [facility] [address] [place] [address] Dr. Regine Fortune Age Gdln ACOG Testing - Normal [facility] Comment on above: Performed By: #### 4 724455 #### [facility] [address] [place] [address] [address] Regine Fortune DIAGNOSIS: Comment [facility] Comment on above: Result Comment: NEGA TIVE FOR INTRAEPITHELIAL LESION OR MALIGNANCY. Performed By: #### 4 160572 #### [facility] [address] [place] [address] Dr. Regine Fortune Methodology: Comment Normal [facility] Comment on above: Result Comment: This liquid based ThinPrep(R) pap test was screened with the use of an image guided system. Performed By: #### [id number] #### [facility] [address] [place] [address] Dr. Regine Fortune Note: Comment Normal [facility] Comment on above: Result Comment: The Pap smear is a screening test designed to aid in the detection of premalignant and malignant conditions of the uterine cervix. It is not a diagnostic procedure and should not be used as the sole means of detecting cervical cancer. Both false-positive and false-negative reports do occur. . Performed By: #### [id number] #### [facility] [address] [place] [address] Dr. Regine Fortune Performed by: Comment Normal [facility] Comment on above: Result Comment: Amna Hernandes Page Designer (ASCP) Performed By: #### [id number] #### [facility] [address] [place] [address] Dr. Regine Fortune Reflex Criteria: Comment Normal [facility] Comment on above: Result Comment: The HPV DNA reflex criteria were not met with this specimen result therefore, no HPV testing was performed. . Performed By: #### [id number] #### [facility] [address] [place] [address] Dr. Regine Fortune Specimen adequacy: Comment Normal [facility] Comment on above: Result Comment: Sati sfactory for evaluation. Endocervical and/or squamous metaplastic cells (endocervical component) are present. Areas of partially obscuring inflammatory exudate are present. Performed By: #### [id number] #### [facility] [address] [place] [address] Dr. Regine Fortune Thyrotropin [Units/volume] i n Serum or PlasmaOrdered By: Brain Way on 12-10-2022 TSH Qn 2.86 m[IU]/L 0.45-5.33 [facility] Thyroxine (T4) free [Mass/vo lume] in Serum or PlasmaOrdered By: Brain Way on 12-10-2022 Free T4 [Mass/Vol] 0.94 ng/dL 0.61-1.12 [facility] Albumin [Mass/volume] in Ser um or PlasmaOrdered By: Ofelia Hester on 10-16-2022 Albumin [Mass/Vol] 4.1 g/dL 3.2-5.5 [facility] Alkaline phosphatase [Enzyma tic activity/volume] in Serum or PlasmaOrdered By: Ofelia Hester on 10-16-2022 ALP [Catalytic activity/Vol] 56 U/L 32-92 [facility] Amylaseon 10-16-2022 Amylase 43 U/L Normal 28-100 U/L [employer] Other Amylase [Enzymatic activity/ volume] in Serum or PlasmaOrdered By: Ofelia Hester on 10-16-2022 Amylase [Catalytic activity/Vol] 43 U/L 28-100 [facility] Aspartate aminotransferase [ Enzymatic activity/volume] in Serum or PlasmaOrdered By: Ofelia Hester on 10-16-2022 AST [Catalytic activity/Vol] 16 U/L 10-42 [facility] Bilirubin.total [Mass/volume ] in Serum or PlasmaOrdered By: Ofelia Hester on 10-16-2022 Bilirubin [Mass/Vol] 0.6 mg/dL 0.3-1.2 [facility] Calcium [Mass/volume] in Ser um or PlasmaOrdered By: Ofelia Hester on 10-16-2022 Calcium [Mass/Vol] 9.3 mg/dL 8.2-10.2 [facility] Carbon dioxide, total [Moles /volume] in Serum or PlasmaOrdered By: Ofelia Hester on 10-16-2022 CO2 [Moles/Vol] 22.1 mmol/L 22.0-30.0 [facility] Chloride [Moles/volume] in S ghada or PlasmaOrdered By: Ofelia Hester on 10-16-2022 Chloride [Moles/Vol] 105 mmol/L 95-114 [facility] Comprehensive Metabolic Pane samy 10-16-2022 Albumin [Mass/Vol] 4.510078 g/dL Normal 3.2-5.5 g/dL [employer] Other ALT [Catalytic activity/Vol] 17 U/L Normal 10-60 U/L [employer] Other Bilirubin [Mass/Vol] 0.4159852 mg/dL Normal 0.3- 1.2 mg/dL [employer] Other Calcium [Mass/Vol] 9.7992431 mg/dL Normal 8.2-10 .2 mg/dL [employer] Other CO2 [Moles/Vol] 22.00294999 mmol/L Normal 22.0-3 0.0 mmol/L [employer] Other Creatinine [Mass/Vol] 0.24777661 mg/dL Normal 0. 44-1.03 mg/dL [employer] Other Potassium [Moles/Vol] 4.07863244 mmol/L Normal 3 .5-5.1 mmol/L [employer] Other Protein [Mass/Vol] 6.340203 g/dL Normal 6.1-7.9 g/dL [employer] Other Comprehensive Metabolic Panel > 60 [employer] Other Comprehensive Metabolic Panel 2.5 g/dL [employer] Other Creatinine and Glomerular fi ltration rate.predicted panel (S/P/Bld)Ordered By: Ofelia Hester on 10-16-2022 Creatinine [Mass/Vol] 0.55 mg/dL 0.44-1.03 [facility] Estimated glomerular filtrat ion rate (GFR) non- AmericanOrdered By: Ofelia Hester on 10-16-2022 GFR/1.73 sq M.predicted among non-blacks MDRD (S/P/Bld) [Vol rate/Area] > 60 mL/Min [facility] Globulin Calc (S) [Mass/Vol] Ordered By: Ofelia Hester on 10-16-2022 Globulin (S) [Mass/Vol] 2.5 g/dL [facility] Glucose [Mass/volume] in Ser um or PlasmaOrdered By: Ofelia Hester on 10-16-2022 Glucose [Mass/Vol] 86 mg/dL 70-100 [facility] Comment on above: ADA recommended refe rence rangeRandom Glucose Reference Range is dependent on time and content of last meal. Glucose of more than 200 mg/dL in a nonstressed, ambulatory subject supports the diagnosis of Diabetes Mellitus. Laboratory - Chemistry and C hemistry - challengeOrdered By: Ofelia Hester on 10-16-2022 Lipase [Catalytic activity/Vol] 35.0 U/L 22-51 [facility] Lipaseon 10-16-2022 Lipase [Catalytic activity/Vol] 35.11132 U/L Normal 22-51 U/L [employer] Other No Panel InformationOrdered By: Ofelia Hester on 10-16-2022 Estimated GFR () > 60 mL/Min [facility] Comment on above: GFR estimated refere nce range: According to KDOQI guidelines, <60 ml/min/1.73m2 is sufficient to diagnose a patient with chronic kidney disease. Pharmacy Creatinine Clearance (Chem N/A [facility] Potassium [Moles/volume] in Serum or PlasmaOrdered By: Ofelia Hester on 10-16-2022 Potassium [Moles/Vol] 4.3 mmol/L 3.5-5.1 [facility] Protein [Mass/volume] in Ser um or PlasmaOrdered By: Ofelia Hester on 10-16-2022 Protein [Mass/Vol] 6.6 g/dL 6.1-7.9 [facility] Serum or plasma alanine galaviz otransferase measurement without P-5'-P (enzymatic activiOrdered By: Ofelia Hester on 10-16-2022 ALT No additional P-5'-P [Catalytic activity/Vol] 17 U/L 10-60 [facility] Serum or plasma albumin/glob ulin mass ratioOrdered By: Ofelia Hester on 10-16-2022 Albumin/Globulin [Mass ratio] 1.6 {ratio} [facility] Serum or plasma anion gap de terminationOrdered By: Ofelia Hester on 10-16-2022 Anion gap [Moles/Vol] 13.2 mmol/L 6.0-15.0 [facility] Sodium [Moles/volume] in Ser um or PlasmaOrdered By: Ofelia Hester on 10-16-2022 Sodium [Moles/Vol] 136 mmol/L 136-146 [facility] Urea nitrogen [Mass/volume] in Serum or PlasmaOrdered By: Ofelia Hester on 10-16-2022 Urea nitrogen [Mass/Vol] 11 mg/dL 9- [facility] T4 FREE/FREE THYROXon 2021 Free T4 [Mass/Vol] 1.3 ng/dL 0.9 - 1.7 ng/dL [facility] TSH BLDon 07-14-2022 TSH Qn 2.480 m[IU]/L 0.270 - 4.200 mIU/L [facility] VITAMIN B12 BLOODon 07-14-20 Cobalamin (Vitamin B12) [Mass/Vol] 267 pg/mL 232 - 1,245 pg/mL [facility] Quick Fluon 06-04-2022 FLUAV Ab CF (S) [Titer] Negative codetag Other FLUBV Ab CF (S) [Titer] Negative codetag Other Quick Strepon 06-04-2022 S. pyogenes Org specific cx Ql (Throat) Negative [employer] Other Quick Strep [employer] Other SARS-CoV-2 (COVID-19) RNA NA A+probe Ql (Resp)on 06-04-2022 SARS-CoV-2 (COVID-19) RNA LAUREN+probe Ql (Unsp spec) Negative [employer] Other TSH DL <= 0.005 mIU/L QnOrde red By: Darwin Jones on 04-14-2022 TSH Qn 6.39 m[IU]/L 0.45-5.33 [facility] Thyroxine (T4) free [Mass/vo lume] in Serum or PlasmaOrdered By: Darwin Jones on 04-14-2022 Free T4 [Mass/Vol] 0.82 ng/dL 0.61-1.12 [facility] Triiodothyronine (T3) Free [ Mass/volume] in Serum or PlasmaOrdered By: Darwin Jones on 04-14-2022 Free T3 [Mass/Vol] 4.08 pg/mL 2.50-3.90 [facility] Serum or plasma calcium luis urement (mass/volume)Ordered By: Saad Valera on 04-06-2022 Calcium [Mass/Vol] 9.4 mg/dL 8.2-10.2 [facility] Serum or plasma intact parat hyroid hormone measurement (mass/volume)Ordered By: Saad Valera on 04-06-2022 Parathyrin.intact [Mass/Vol] 54.8 pg/mL [facility] CHEMISTRYOrdered By: Lab ROP User on 02-18-2022 Glucose [Mass/Vol] 106 mg/dL High 55 - 99 mg/dL [facility] [place] Comment on above: Result Comment: Aurelia breana Meter POC Device SN [id number] Invalid Interpretation Code [facility] Subsection POC User ID [id number] Invalid Interpretation Code [facility] Subsection POC Username ZHOU OBINNA Invalid Interpretation Code [facility] Subsection Serum or plasma thyroglobuli n antibody assay (units/volume)Ordered By: Darwin Jones on 02-13-2022 Thyroglobulin Ab Qn 971.2 [IU]/mL 0.0-0.9 [facility] Comment on above: Thyroglobulin Antibo dy measured by [employer] Methodology Performed at: [facility] [id number] Recreation Engineer: Alexis Ashton PhD, Phone: [phone] Serum or plasma thyroperoxid ase antibody assay (units/volume)Ordered By: Darwin Jones on 02-13-2022 TPO Ab Qn 327 [IU]/mL 0-34 [facility] Thyroxine (T4) free [Mass/vo lume] in Serum or PlasmaOrdered By: Darwin Jones on 02-13-2022 Free T4 [Mass/Vol] 0.66 ng/dL 0.61-1.12 [facility] Triiodothyronine (T3) Free [ Mass/volume] in Serum or PlasmaOrdered By: Darwin Jones on 02-13-2022 Free T3 [Mass/Vol] 4.04 pg/mL 2.50-3.90 [facility] Albumin [Mass/volume] in Ser um or PlasmaOrdered By: Addi Ortega on 02-10-2022 Albumin [Mass/Vol] 4.1 g/dL 3.2-5.5 [facility] Basophils Auto (Bld) [#/Vol] Ordered By: Addi Ortega on 02-10-2022 Basophils (Bld) [#/Vol] 0.0 10*3/uL 0.0-0.2 [facility] Basophils/100 WBC Auto (Bld) Ordered By: Addi Ortega on 02-10-2022 Basophils/100 WBC (Bld) 0.4 % . F [facility] Blood hemoglobin measurement (mass/volume)Ordered By: Addi Ortega on 02-10-2022 Hemoglobin (Bld) [Mass/Vol] 14.1 g/dL 11.8-15.4 [facility] Blood leukocytes automated c ount (number/volume)Ordered By: Addi Ortega on 02-10-2022 WBC (Bld) [#/Vol] 7.3 10*3/uL 4.5-11.0 [facility] Cholesterol [Mass/volume] in Serum or PlasmaOrdered By: Addi Ortega on 02-10-2022 Cholesterol [Mass/Vol] 195 mg/dL 140-200 [facility] Comment on above: Chol less than 200 m g/dl low risk Chol 201-239 mg/dl borderline risk Chol 240 mg/dl and greater high risk Cholesterol in LDL Calc [Mas s/Vol]Ordered By: Addi Ortega on 02-10-2022 Cholesterol in LDL [Mass/Vol] 113 mg/dL 0-100 [facility] Comment on above: LDL ATP III CLASSIFI CATION LDL less than 100 mg/dL Optimal LDL 100-129 mg/dL Near or above optimal LDL 130-159 mg/dL Borderline high LDL 160-189 mg/dL High LDL greater than 189 mg/dL Very high Cholesterol in VLDL Calc [Ma ss/Vol]Ordered By: Addi Ortega on 02-10-2022 Cholesterol in VLDL [Mass/Vol] 26 mg/dL [facility] Creatinine and Glomerular fi ltration rate.predicted panel (S/P/Bld)Ordered By: Addi Ortega on 02-10-2022 Creatinine [Mass/Vol] 0.71 mg/dL 0.44-1.03 [facility] Eosinophils Auto (Bld) [#/Vo l]Ordered By: Addi Ortega on 02-10-2022 Eosinophils (Bld) [#/Vol] 0.1 10*3/uL 0.0-0.45 [facility] Eosinophils/100 WBC Auto (Bl d)Ordered By: Addi Ortega on 02-10-2022 Eosinophils/100 WBC (Bld) 1.5 % . [facility] Erythrocyte distribution wid th Auto (RBC) [Ratio]Ordered By: Addi Ortega on 02-10-2022 Erythrocyte distribution width (RBC) [Ratio] 14.0 % 11.9-15.3 [facility] Estimated glomerular filtrat ion rate (GFR) non- AmericanOrdered By: Addi Ortega on 02-10-2022 GFR/1.73 sq M.predicted among non-blacks MDRD (S/P/Bld) [Vol rate/Area] > 60 mL/Min [facility] Globulin Calc (S) [Mass/Vol] Ordered By: Addi Ortega on 02-10-2022 Globulin (S) [Mass/Vol] 2.8 g/dL F [facility] Hematocrit Auto (Bld) [Volum e fraction]Ordered By: Addi Ortega on 02-10-2022 Hematocrit (Bld) [Volume fraction] 40.3 % 34.0-46.4 [facility] Laboratory - Chemistry and C hemistry - challengeOrdered By: Addi Ortega on 02-10-2022 Glucose [Mass/Vol] 90 mg/dL 70-100 [facility] Laboratory - Hematology and Cell countsOrdered By: Addi Ortega on 02-10-2022 Nucleated RBC/100 WBC (Bld) [Ratio] 0.1 % 0-0.5 [facility] Lymphocytes Auto (Bld) [#/Vo l]Ordered By: Addi Ortega on 02-10-2022 Lymphocytes (Bld) [#/Vol] 3.3 10*3/uL 1.00-4.8 [facility] Lymphocytes/100 WBC Auto (Bl d)Ordered By: Addi Ortega on 02-10-2022 Lymphocytes/100 WBC (Bld) 45.2 % . [facility] MCH Auto (RBC) [Entitic mass ]Ordered By: Addi Ortega on 02-10-2022 MCH (RBC) [Entitic mass] 33.0 pg 24.7-34.3 [facility] MCHC Auto (RBC) [Mass/Vol]Or dered By: Addi Ortega on 02-10-2022 MCHC (RBC) [Mass/Vol] 34.9 g/dL 32.0-35.0 [facility] MCV Auto (RBC) [Entitic vol] Ordered By: Addi Ortega on 02-10-2022 MCV (RBC) [Entitic vol] 94.6 fL 80-100 F [facility] Monocyte %Ordered By: Addi Ortega on 02-10-2022 Monocyte % 134 mg/dL 35-149 [facility] Comment on above: TRIG ATP III CLASSIF ICATION TRIG less than 150 mg/dL Normal TRIG 150-199 mg/dL Borderline high TRIG 200-500 mg/dL High TRIG greater than 500 mg/dL Very high Standard traceable to the Center for Disease Conrtrol and Prevention (CDC) test method. Monocytes Auto (Bld) [#/Vol] Ordered By: Addi Ortega on 02-10-2022 Monocytes (Bld) [#/Vol] 0.5 10*3/uL 0.0-0.8 [facility] Monocytes/100 WBC Auto (Bld) Ordered By: Addi Ortega on 02-10-2022 Monocytes/100 WBC (Bld) 6.3 % . F [facility] Neutrophils Auto (Bld) [#/Vo l]Ordered By: Addi Ortega on 02-10-2022 Neutrophils (Bld) [#/Vol] 3.4 10*3/uL 1.8-7.7 [facility] Neutrophils/100 WBC Auto (Bl d)Ordered By: Addi Ortega on 02-10-2022 Neutrophils/100 WBC (Bld) 46.6 % . [facility] No Panel InformationOrdered By: Addi Ortega on 02-10-2022 Estimated GFR () > 60 mL/Min [facility] Comment on above: GFR estimated refere nce range: According to KDOQI guidelines, <60 ml/min/1.73m2 is sufficient to diagnose a patient with chronic kidney disease. Nicotine Metabolite Negative Cutoff=25 [facility] Comment on above: Performed at: [address] [id number] Recreation Engineer: Catherine Mendoza MD, Phone: [phone] Pharmacy Creatinine Clearance (Chem N/A [facility] Platelet mean volume Auto (B ld) [Entitic vol]Ordered By: Addi Ortega on 02-10-2022 Platelet mean volume (Bld) [Entitic vol] 8.4 fL 6.3-10.7 [facility] Platelets Auto (Bld) [#/Vol] Ordered By: Addi Ortega on 02-10-2022 Platelets (Bld) [#/Vol] 321 10*3/uL 150-450 [facility] Protein [Mass/volume] in Ser um or PlasmaOrdered By: Addi Ortega on 02-10-2022 Protein [Mass/Vol] 6.9 g/dL 6.1-7.9 [facility] RBC Auto (Bld) [#/Vol]Ordere d By: Addi Ortega on 02-10-2022 RBC (Bld) [#/Vol] 4.26 10*6/uL 3.60-5.00 [facility] Serum or plasma alanine galaviz otransferase measurement without P-5'-P (enzymatic activiOrdered By: Addi Ortega on 02-10-2022 ALT No additional P-5'-P [Catalytic activity/Vol] 26 U/L 10-60 [facility] Serum or plasma albumin/glob ulin mass ratioOrdered By: Addi Ortega on 02-10-2022 Albumin/Globulin [Mass ratio] 1.5 {ratio} [facility] Serum or plasma alkaline hosea sphatase measurement (enzymatic activity/volume)Ordered By: Addi Ortega on 02-10-2022 ALP [Catalytic activity/Vol] 47 U/L 32-92 [facility] Serum or plasma aspartate am inotransferase measurement (enzymatic activity/volume)Ordered By: Addi Ortega on 02-10-2022 AST [Catalytic activity/Vol] 18 U/L 10-42 [facility] Serum or plasma calcium luis urement (mass/volume)Ordered By: Addi Ortega on 02-10-2022 Calcium [Mass/Vol] 9.3 mg/dL 8.2-10.2 [facility] Serum or plasma chloride radha surement (moles/volume)Ordered By: Addi Ortega on 02-10-2022 Chloride [Moles/Vol] 99 mmol/L 95-114 [facility] Serum or plasma high density lipoprotein (HDL) cholesterol measurementOrdered By: Addi Ortega on 02-10-2022 Cholesterol in HDL [Mass/Vol] 55 mg/dL 35-85 [facility] Comment on above: HDL CHOL ATP-III CLA SSIFICATION Cardiovascular Risk HDL > or equal to 60 mg/dL LOW HDL < 40 mg/dL HIGH Serum or plasma potassium me asurement (moles/volume)Ordered By: Addi Ortega on 02-10-2022 Potassium [Moles/Vol] 4.1 mmol/L 3.5-5.1 [facility] Serum or plasma sodium measu rement (moles/volume)Ordered By: Addi Ortega on 02-10-2022 Sodium [Moles/Vol] 135 mmol/L 136-146 [facility] Serum or plasma total biliru bin measurement (mass/volume)Ordered By: Addi Ortega on 02-10-2022 Bilirubin [Mass/Vol] 0.7 mg/dL 0.3-1.2 [facility] Serum or plasma total carbon dioxide measurement (moles/volume)Ordered By: Addi Ortega on 02-10-2022 CO2 [Moles/Vol] 23.3 mmol/L 22.0-30.0 [facility] Serum or plasma total choles terol/high density lipoprotein (HDL) cholesterol mass ratOrdered By: Addimanuelito Ortega on 02-10-2022 Cholesterol.total/Alexandra sterol in HDL [Mass ratio] 3.5 {ratio} <5.0 [facility] Serum or plasma urea nitroge n measurement (mass/volume)Ordered By: Addi Ortega on 02-10-2022 Urea nitrogen [Mass/Vol] 17 mg/dL 05-08 [facility] TSH DL <= 0.005 mIU/L QnOrde red By: Addi Dobsonkevon on 02-10-2022 TSH Qn 57.67 m[IU]/L 0.45-5.33 [facility] No Panel Informationon 09-03 6 {mm/hr} Normal 0-34 [facility] 250 DO Work Phone: Office [...] Patient Instructions By signing my name below, I, Sheila Gonzalez LPN, Scribe, attest that this documentation has been prepared under the direction and in the presence of Dr. Herson Coronado MD. All medical record entries made by the Mauricioibe were at my direction and personally dictated [...] Vital Signs Recorded: 03Sep2021 10:02AMRecorded: 03Sep2021 09:55AM [id number], LUE, [id number], RUE, Sitting [id number], LUE, [id number], RUE, Sitting Heart Rate72, Apical Height5 ft 7 in [id number] lb 9.6 oz BMI Qgqgovplgf89.36 kg/m2 BSA Calculated2.05 Tobacco Useb) No EKG [...] . Sign (more content not included)... Normal MedTel24 Tobacco Screening.on 022 Tobacco use status [facility] b) No [facility] 600 DO Work Phone: Vital Signs Date Time Vital Sign Value Performing Clinician Facility 03-18-2024 11:50-0400 Diastolic blood pressure 83 mm[Hg] [facility] 03-18-2024 11:50-0400 Heart rate 75 /min [facility] 03-18-2024 11:50-0400 Mean blood pressure 97 mm[Hg] [facility] 03-18-2024 11:50-0400 Respiratory rate 16 /min [facility] 03-18-2024 11:50-0400 SaO2% (BldA) [Mass fraction] 98 % [facility] 03-18-2024 11:50-0400 Systolic blood pressure 126 mm[Hg] [facility] 03-18-2024 09:46-0400 Hourly Rounding [facility] 03-18-2024 09:11-0400 Hourly Rounding [facility] 03-18-2024 08:10-0400 Body temperature 98.6 [degF] [facility] 03-18-2024 08:10-0400 Diastolic blood pressure 91 mm[Hg] [facility] 03-18-2024 08:10-0400 Heart rate 98 /min [facility] 03-18-2024 08:10-0400 Hourly Rounding [facility] 03-18-2024 08:10-0400 Respiratory rate 17 /min [facility] 03-18-2024 08:10-0400 SaO2% (BldA) [Mass fraction] 98 % [facility] 03-18-2024 08:10-0400 Systolic blood pressure 135 mm[Hg] [facility] 01-25-2024 08:59-0400 Body height 170.18 cm CERTIFIED TRAVEL COUNSELOR Darwin Jones Work Phone: [facility] 01-25-2024 08:59-0400 Body mass index (BMI) [Ratio] 37.4 kg/m2 CERTIFIED TRAVEL COUNSELOR Darwin Easterwood Work Phone: [facility] 01-25-2024 08:59-0400 Body temperature 98 [degF] CERTIFIED TRAVEL COUNSELOR Darwin Easterwood Work Phone: [facility] 01-25-2024 08:59-0400 Body weight 108.4 kg CERTIFIED TRAVEL COUNSELOR Darwin Eastermacy Work Phone: [facility] 01-25-2024 08:59-0400 Diastolic blood pressure 80 mm[Hg] CERTIFIED TRAVEL COUNSELOR Darwin Easterwood Work Phone: [facility] 01-25-2024 08:59-0400 Heart rate 98 /min CERTIFIED TRAVEL COUNSELOR Darwin Eastermacy Work Phone: [facility] 01-25-2024 08:59-0400 Respiratory rate 20 /min CERTIFIED TRAVEL COUNSELOR Darwin Eastermacy Work Phone: [facility] 01-25-2024 08:59-0400 SaO2% (BldA) [Mass fraction] 99 % CERTIFIED TRAVEL COUNSELOR Darwin Eastermacy Work Phone: [facility] 01-25-2024 08:59-0400 Systolic blood pressure 122 mm[Hg] CERTIFIED TRAVEL COUNSELORAkilah Edgara Eastermacy Work Phone: [facility] 12-24-2023 09:56-0400 Body height 170.18 cm CERTIFIED TRAVEL COUNSELOR Darwin Eastermacy Work Phone: [facility] 12-24-2023 09:56-0400 Body mass index (BMI) [Ratio] 37.7 kg/m2 CERTIFIED TRAVEL COUNSELOR Darwin Easterwood Work Phone: [facility] 12-24-2023 09:56-0400 Body temperature 97.6 [degF] CERTIFIED TRAVEL COUNSELOR Darwin Eastermacy Work Phone: [facility] 12-24-2023 09:56-0400 Body weight 109.31 kg CERTIFIED TRAVEL COUNSELOR Darwin Easterwood Work Phone: [facility] 12-24-2023 09:56-0400 Diastolic blood pressure 84 mm[Hg] CERTIFIED TRAVEL COUNSELOR Darwin Easterwood Work Phone: [facility] 12-24-2023 09:56-0400 Heart rate 102 /min CERTIFIED TRAVEL COUNSELOR Darwin Easterwood Work Phone: [facility] 12-24-2023 09:56-0400 Respiratory rate 20 /min CERTIFIED TRAVEL COUNSELOR Darwin Easterwood Work Phone: [facility] 12-24-2023 09:56-0400 SaO2% (BldA) [Mass fraction] 98 % CERTIFIED TRAVEL COUNSELOR Darwin Easterwood Work Phone: [facility] 12-24-2023 09:56-0400 Systolic blood pressure 126 mm[Hg] CERTIFIED TRAVEL COUNSELOR Darwin Easterwood Work Phone: [facility] 11-25-2023 09:01-0400 Body height 170.18 cm CERTIFIED TRAVEL COUNSELOR Darwin [place] Work Phone: [facility] 11-25-2023 09:01-0400 Body mass index (BMI) [Ratio] 37.7 kg/m2 CERTIFIED TRAVEL COUNSELOR Darwin Easterwood Work Phone: [facility] 11-25-2023 09:01-0400 Body temperature 97 [degF] CERTIFIED TRAVEL COUNSELOR Darwin Easterwood Work Phone: [facility] 11-25-2023 09:01-0400 Body weight 109.31 kg CERTIFIED TRAVEL COUNSELOR Darwin Easterwood Work Phone: [facility] 11-25-2023 09:01-0400 Diastolic blood pressure 76 mm[Hg] CERTIFIED TRAVEL COUNSELOR Darwin Easterwood Work Phone: [facility] 11-25-2023 09:01-0400 Heart rate 95 /min CERTIFIED TRAVEL COUNSELOR Darwin Easterwood Work Phone: [facility] 11-25-2023 09:01-0400 Respiratory rate 20 /min CERTIFIED TRAVEL COUNSELOR Darwin Jones Work Phone: [facility] 11-25-2023 09:01-0400 SaO2% (BldA) [Mass fraction] 98 % CERTIFIED TRAVEL COUNSELOR Darwin Yasir Work Phone: [facility] 11-25-2023 09:01-0400 Systolic blood pressure 120 mm[Hg] CERTIFIED TRAVEL COUNSELORAkilah Orosco Yasir Work Phone: [facility] 11-18-2023 08:03-0400 Body weight 110.68 kg Ruby Whittington MD Work Phone: [facility] 11-18-2023 08:03-0400 Diastolic blood pressure 92 mm[Hg] Ruby Whittington MD Work Phone: [facility] 11-18-2023 08:03-0400 Heart rate 100 /min Ruby Whittington MD Work Phone: [facility] 11-18-2023 08:03-0400 Systolic blood pressure 132 mm[Hg] Ruby Whittington MD Work Phone: [facility] 10-20-2023 09:05-0500 Body height 170.18 cm CERTIFIED TRAVEL COUNSELORAkilah Orosco Yasir Work Phone: [facility] 10-20-2023 09:05-0500 Body mass index (BMI) [Ratio] 38.3 kg/m2 CERTIFIED TRAVEL COUNSELORAkilah Orosco Yasir Work Phone: [facility] 10-20-2023 09:05-0500 Body temperature 98 [degF] CERTIFIED TRAVEL COUNSELORAkilah Orosco Yasir Work Phone: [facility] 10-20-2023 09:05-0500 Body weight 111.13 kg SHIRLEY Orosco Yasir Work Phone: [facility] 10-20-2023 09:05-0500 Diastolic blood pressure 78 mm[Hg] CERTIFIED TRAVEL COUNSELOR Darwin Jonesermacy Work Phone: [facility] 10-20-2023 09:05-0500 Heart rate 82 /min CERTIFIED TRAVEL COUNSELOR Darwin Jonesermacy Work Phone: [facility] 10-20-2023 09:05-0500 Respiratory rate 20 /min CERTIFIED TRAVEL COUNSELOR Darwin Jones Work Phone: [facility] 10-20-2023 09:05-0500 SaO2% (BldA) [Mass fraction] 98 % CERTIFIED TRAVEL COUNSELOR Darwin Jonesermacy Work Phone: [facility] 10-20-2023 09:05-0500 Systolic blood pressure 124 mm[Hg] CERTIFIED TRAVEL COUNSELOR Darwin Jonesermacy Work Phone: [facility] 09-29-2023 10:41-0500 Blood Pressure Location Tyrone Rock [facility] 09-29-2023 10:41-0500 Body temperature 98.24 [degF] Tyroneevangelina PolancoPranav [facility] 09-29-2023 10:41-0500 Diastolic blood pressure 78 mm[Hg] Tyrone Rock [facility] 09-29-2023 10:41-0500 Heart rate 95 /min Tyrone Rock [facility] 09-29-2023 10:41-0500 SaO2% (BldA) [Mass fraction] 97 % Tyrone Rock [facility] 09-29-2023 10:41-0500 Systolic blood pressure 122 mm[Hg] Tyrone Rock [facility] 09-21-2023 09:00-0500 Body height 170.18 cm Darwin Jones Other [employer] Other 09-21-2023 09:00-0500 Body mass index (BMI) [Ratio] 38.37 kg/m2 Darwin Easterwood Other [employer] [facility] [employer] Other 09-21-2023 09:00-0500 Body temperature 98 [degF] Darwin Easterwood Other [employer] [facility] [employer] Other 09-21-2023 09:00-0500 Body weight 111.13 kg Darwin Easterwood Other [employer] [facility] [employer] Other 09-21-2023 09:00-0500 Diastolic blood pressure 84 mm[Hg] Darwin Easterwood Other [employer] Other 09-21-2023 09:00-0500 Respiratory rate 20 /min Darwin Easterwood Other [employer] [facility] [employer] Other 09-21-2023 09:00-0500 SaO2% (BldA) [Mass fraction] 98 % Darwin Easterwood Other [employer] [facility] [employer] Other 09-21-2023 09:00-0500 Systolic blood pressure 126 mm[Hg] Darwin Easterwood Other [employer] Other 08-25-2023 09:30-0500 Body height 170.18 cm Darwin Easterwood Other [facility] 08-25-2023 09:30-0500 Body mass index (BMI) [Ratio] 39.46 kg/m2 Darwin Easterwood Other [employer] Other 08-25-2023 09:30-0500 Body temperature 97.6 [degF] Darwin Easterwood Other [employer] Other 08-25-2023 09:30-0500 Body weight 114.31 kg Darwin Easterwood Other [employer] Other 08-25-2023 09:30-0500 Body weight 114.3 kg CERTIFIED TRAVEL COUNSELOR Darwin Easterwood Work Phone: [facility] 08-25-2023 09:30-0500 Diastolic blood pressure 80 mm[Hg] Darwin Easterwood Other [facility] 08-25-2023 09:30-0500 Respiratory rate 20 /min Darwin Easterwood Other [employer] Other 08-25-2023 09:30-0500 SaO2% (BldA) [Mass fraction] 98 % Darwin Easterwood Other [employer] Other 08-25-2023 09:30-0500 Systolic blood pressure 120 mm[Hg] Darwin Easterwood Other [facility] 07-23-2023 09:30-0500 Body height 170.18 cm CERTIFIED TRAVEL COUNSELOR Darwin Easterwood Work Phone: [facility] 07-23-2023 09:30-0500 Body weight 116.57 kg CERTIFIED TRAVEL COUNSELOR Darwin Easterwood Work Phone: [facility] 07-23-2023 09:30-0500 Diastolic blood pressure 80 mm[Hg] CERTIFIED TRAVEL COUNSELOR Darwin Easterwood Work Phone: [facility] 07-23-2023 09:30-0500 Systolic blood pressure 118 mm[Hg] CERTIFIED TRAVEL COUNSELOR Darwin Easterwood Work Phone: [facility] 06-23-2023 09:30-0500 Body height 170.18 cm Darwin Easterwood Other [employer] Other 06-23-2023 09:30-0500 Body mass index (BMI) [Ratio] 40.4 kg/m2 Darwin Easterwood Other [employer] Other 06-23-2023 09:30-0500 Body temperature 97.4 [degF] Darwin Easterwood Other [employer] Other 06-23-2023 09:30-0500 Body weight 117.03 kg Darwin Easterwood Other [employer] Other 06-23-2023 09:30-0500 Diastolic blood pressure 78 mm[Hg] Darwin Easterwood Other [employer] Other 06-23-2023 09:30-0500 Respiratory rate 20 /min Darwin Easterwood Other [employer] Other 06-23-2023 09:30-0500 SaO2% (BldA) [Mass fraction] 98 % Darwin Easterwood Other [employer] [facility] [employer] Other 06-23-2023 09:30-0500 Systolic blood pressure 120 mm[Hg] Darwin Easterwood Other [employer] Other 06-08-2023 14:00-0400 Body temperature 97.2 [degF] Francy Gan PA-C Work Phone: [facility] 05-26-2023 10:30-0400 Body height 170.18 cm Darwin Easterwood Other [employer] Other 05-26-2023 10:30-0400 Body mass index (BMI) [Ratio] 41.5 kg/m2 Darwin Easterwood Other [employer] Other 05-26-2023 10:30-0400 Body temperature 98.4 [degF] Darwin Easterwood Other [employer] Other 05-26-2023 10:30-0400 Body weight 120.2 kg Darwin Easterwood Other [employer] Other 05-26-2023 10:30-0400 Diastolic blood pressure 70 mm[Hg] Darwin Easterwood Other [employer] Other 05-26-2023 10:30-0400 Respiratory rate 20 /min Darwin Easterwood Other [employer] Other 05-26-2023 10:30-0400 SaO2% (BldA) [Mass fraction] 97 % Darwin Easterwood Other [employer] Other 05-26-2023 10:30-0400 Systolic blood pressure 112 mm[Hg] Darwin Easterwood Other [employer] Other 04-28-2023 09:15-0400 Body height 170.18 cm Darwin Easterwood Other [employer] Other 04-28-2023 09:15-0400 Body mass index (BMI) [Ratio] 41.34 kg/m2 Darwin Easterwood Other [employer] Other 04-28-2023 09:15-0400 Body temperature 97.2 [degF] Darwin Easterwood Other [employer] Other 04-28-2023 09:15-0400 Body weight 119.75 kg Darwin Easterwood Other [employer] Other 04-28-2023 09:15-0400 Diastolic blood pressure 82 mm[Hg] Darwin Easterwood Other [employer] Other 04-28-2023 09:15-0400 Respiratory rate 20 /min Darwin Roberterwood Other [employer] Other 04-28-2023 09:15-0400 SaO2% (BldA) [Mass fraction] 97 % Darwin Roberterwood Other [employer] Other 04-28-2023 09:15-0400 Systolic blood pressure 120 mm[Hg] Darwin Easterwood Other [employer] Other 04-16-2023 11:00-0400 Body height 170.18 cm Darwincary Jones Other [employer] Other 04-16-2023 11:00-0400 Body mass index (BMI) [Ratio] 41.03 kg/m2 Darwin Easterwood Other [employer] Other 04-16-2023 11:00-0400 Body temperature 97.8 [degF] Darwin Easterwood Other [employer] Other 04-16-2023 11:00-0400 Body weight 118.84 kg Darwin Easterwood Other [employer] Other 04-16-2023 11:00-0400 Diastolic blood pressure 80 mm[Hg] Darwin Easterwood Other [employer] Other 04-16-2023 11:00-0400 Respiratory rate 20 /min Darwin Jones Other [employer] Other 04-16-2023 11:00-0400 SaO2% (BldA) [Mass fraction] 98 % Darwin [employer] Other [employer] Other 04-16-2023 11:00-0400 Systolic blood pressure 120 mm[Hg] Darwin [employer] Other [employer] Other 03-22-2023 22:51-0400 Diastolic blood pressure 74 mm[Hg] Kaylinn Dokken [facility] 03-22-2023 22:51-0400 Heart rate 80 /min Kaylinn Dokken [facility] 03-22-2023 22:51-0400 Mean blood pressure 92 mm[Hg] Kaylinn Dokken [facility] 03-22-2023 22:51-0400 Respiratory rate 16 /min Kaylinn Dokken [facility] 03-22-2023 22:51-0400 SaO2% (BldA) [Mass fraction] 98 % Kaylinn Dokken [facility] 03-22-2023 22:51-0400 Systolic blood pressure 128 mm[Hg] Kaylinn Dokken [facility] 03-22-2023 21:24-0400 Heart rate 76 /min Kaylinn Dokken [facility] 03-22-2023 21:24-0400 Respiratory rate 16 /min Kaylinn Dokken [facility] 03-22-2023 21:24-0400 SaO2% (BldA) [Mass fraction] 97 % Kaylinn Dokken [facility] 03-22-2023 19:54-0400 Body temperature 98.06 [degF] Kaylinn Dokken [facility] 03-22-2023 19:54-0400 Diastolic blood pressure 89 mm[Hg] Kaylinn Dokken [facility] 03-22-2023 19:54-0400 Heart rate 81 /min Kaylinn Dokken [facility] 03-22-2023 19:54-0400 Respiratory rate 18 /min Kaylinn Dokken [facility] 03-22-2023 19:54-0400 SaO2% (BldA) [Mass fraction] 99 % Kaylinn Dokken [facility] 03-22-2023 19:54-0400 Systolic blood pressure 138 mm[Hg] Kaylinn Dokken [facility] 03-22-2023 15:18-0400 Body height 170.18 cm CERTIFIED TRAVEL COUNSELOR Darwin Easterwood Work Phone: [facility] 03-22-2023 15:18-0400 Body temperature 98.2 [degF] CERTIFIED TRAVEL COUNSELOR Darwin Easterwood Work Phone: [facility] 03-22-2023 15:18-0400 Body weight 120.5 kg CERTIFIED TRAVEL COUNSELOR Darwin Easterwood Work Phone: [facility] 03-22-2023 15:18-0400 Diastolic blood pressure 74 mm[Hg] CERTIFIED TRAVEL COUNSELOR Darwin Easterwood Work Phone: [facility] 03-22-2023 15:18-0400 Heart rate 92 /min CERTIFIED TRAVEL COUNSELORAkilah LaraOlogy [employer] Work Phone: [facility] 03-22-2023 15:18-0400 Respiratory rate 20 /min CERTIFIED TRAVEL COUNSELORAkilah Jones Work Phone: [facility] 03-22-2023 15:18-0400 SaO2% (BldA) [Mass fraction] 97 % CERTIFIED TRAVEL COUNSELORAkilah [employer] Work Phone: [facility] 03-22-2023 15:18-0400 Systolic blood pressure 175 mm[Hg] CERTIFIED TRAVEL COUNSELORAkilah [employer] Work Phone: [facility] 10-05-2022 09:00-0500 Body height 170.18 cm Ofelia Missler Other [employer] Other 10-05-2022 09:00-0500 Body mass index (BMI) [Ratio] 37.21 kg/m2 Ofelia Missler Other [employer] Other 10-05-2022 09:00-0500 Body weight 107.78 kg Ofelia Missler Other [employer] Other 10-05-2022 09:00-0500 Diastolic blood pressure 45 mm[Hg] Ofelia Missler Other [employer] Other 10-05-2022 09:00-0500 Respiratory rate 18 /min Ofelia Missler Other [employer] Other 10-05-2022 09:00-0500 SaO2% (BldA) [Mass fraction] 97 % Ofelia Missler Other [employer] Other 10-05-2022 09:00-0500 Systolic blood pressure 100 mm[Hg] Ofelia Missler Other [employer] Other 09-02-2022 11:30-0500 Body height 170.18 cm Ofelia Missler Other [employer] Other 09-02-2022 11:30-0500 Body mass index (BMI) [Ratio] 38.04 kg/m2 Ofelia Missler Other [employer] Other 09-02-2022 11:30-0500 Body weight 110.18 kg Ofelia Missler Other [employer] Other 09-02-2022 11:30-0500 Diastolic blood pressure 79 mm[Hg] Ofelia Missler Other [employer] Other 09-02-2022 11:30-0500 Respiratory rate 18 /min Foelia Missler Other [employer] Other 09-02-2022 11:30-0500 SaO2% (BldA) [Mass fraction] 96 % Ofelia Missler Other [employer] Other 09-02-2022 11:30-0500 Systolic blood pressure 119 mm[Hg] Ofelia Missler Other [employer] Other 08-25-2022 14:00-0500 Body height 170.18 cm Lilly [employer] Other [employer] Other 08-25-2022 14:00-0500 Body mass index (BMI) [Ratio] 38.01 kg/m2 [employer] Other [employer] Other 08-25-2022 14:00-0500 Body weight 110.09 kg Lilly Luke Other [employer] Other 07-31-2022 09:45-0500 Body height 170.18 cm Ofelia Missler Other [employer] Other 07-31-2022 09:45-0500 Body mass index (BMI) [Ratio] 38.2 kg/m2 Ofelia Missler Other [employer] Other 07-31-2022 09:45-0500 Body weight 110.63 kg Ofelia Missler Other [employer] Other 07-31-2022 09:45-0500 Diastolic blood pressure 78 mm[Hg] Ofelia Missler Other [employer] Other 07-31-2022 09:45-0500 Respiratory rate 18 /min Ofelia Missler Other [employer] Other 07-31-2022 09:45-0500 SaO2% (BldA) [Mass fraction] 96 % Ofelia Missler Other [employer] Other 07-31-2022 09:45-0500 Systolic blood pressure 135 mm[Hg] Ofelia Missler Other [employer] Other 07-14-2022 08:49-0500 Body height 170.5 cm Ruby Whittington MD Work Phone: [facility] 07-14-2022 08:49-0500 Body weight 111.58 kg Ruby Whittington MD Work Phone: [facility] 07-14-2022 08:49-0500 Diastolic blood pressure 73 mm[Hg] Ruby Whittington MD Work Phone: [facility] 07-14-2022 08:49-0500 Heart rate 92 /min Ruby Whittington MD Work Phone: [facility] 07-14-2022 08:49-0500 Systolic blood pressure 140 mm[Hg] Ruby Whittington MD Work Phone: [facility] 06-17-2022 15:45-0400 Body height 170.18 cm Ofelia Missler Other [employer] Other 06-17-2022 15:45-0400 Body mass index (BMI) [Ratio] 38.99 kg/m2 Ofelia Missler Other [employer] Other 06-17-2022 15:45-0400 Body weight 112.95 kg Ofelia Missler Other [employer] Other 06-17-2022 15:45-0400 Diastolic blood pressure 90 mm[Hg] Ofelia Missler Other [employer] Other 06-17-2022 15:45-0400 Respiratory rate 18 /min Ofelia Missler Other [employer] Other 06-17-2022 15:45-0400 SaO2% (BldA) [Mass fraction] 96 % Ofelia Missler Other [employer] Other 06-17-2022 15:45-0400 Systolic blood pressure 140 mm[Hg] Ofelia Missler Other [employer] Other 06-04-2022 13:00-0400 Body height 170.18 cm Sima Ross Other [employer] Other 06-04-2022 13:00-0400 Body mass index (BMI) [Ratio] 38.37 kg/m2 Micahlouisa Vandana Other [employer] Other 06-04-2022 13:00-0400 Body temperature 98.6 [degF] Sima Vandana Other [employer] [facility] [employer] Other 06-04-2022 13:00-0400 Body weight 111.13 kg Sima Vandana Other [employer] [facility] [employer] Other 06-04-2022 13:00-0400 Diastolic blood pressure 83 mm[Hg] Sima Ross Other [employer] [facility] [employer] Other 06-04-2022 13:00-0400 Respiratory rate 18 /min Sima Ross Other [employer] [facility] [employer] Other 06-04-2022 13:00-0400 SaO2% (BldA) [Mass fraction] 99 % Sima Vandana Other [facility] [employer] Other 06-04-2022 13:00-0400 Systolic blood pressure 124 mm[Hg] Micahlouisa Vandana Other [employer] Other 05-27-2022 12:15-0400 Body height 170.18 cm Lilly Luke Other [employer] Other 05-18-2022 09:30-0400 Body height 170.18 cm Ofelia Hester Other [employer] Other 05-18-2022 09:30-0400 Body mass index (BMI) [Ratio] 39.37 kg/m2 Ofelia ler Other [employer] [facility] [employer] Other 05-18-2022 09:30-0400 Body temperature 98.1 [degF] Ofelia Missler Other [employer] Other 05-18-2022 09:30-0400 Body weight 114.04 kg Ofelia Missler Other [employer] Other 05-18-2022 09:30-0400 Diastolic blood pressure 80 mm[Hg] Ofelia Missler Other [employer] Other 05-18-2022 09:30-0400 Respiratory rate 18 /min Ofelia Missler Other [employer] [facility] [employer] Other 05-18-2022 09:30-0400 SaO2% (BldA) [Mass fraction] 99 % Ofelia Missler Other [employer] Other 05-18-2022 09:30-0400 Systolic blood pressure 115 mm[Hg] Ofelia Missler Other [employer] Other 04-17-2022 09:30-0400 Body height 170.18 cm Bench Other [employer] Other 04-17-2022 09:30-0400 Body mass index (BMI) [Ratio] 39.15 kg/m2 Bench Other [employer] Other 04-17-2022 09:30-0400 Body temperature 96.9 [degF] Bench Other [employer] Other 04-17-2022 09:30-0400 Body weight 113.4 kg Bench Other [employer] [facility] [employer] Other 04-17-2022 09:30-0400 Diastolic blood pressure 82 mm[Hg] Darwin Easterwood Other [employer] Other 04-17-2022 09:30-0400 Respiratory rate 20 /min Darwin Easterwood Other [employer] Other 04-17-2022 09:30-0400 SaO2% (BldA) [Mass fraction] 99 % Darwin Easterwood Other [employer] Other 04-17-2022 09:30-0400 Systolic blood pressure 124 mm[Hg] Darwin Easterwood Other [employer] Other 02-18-2022 21:41-0400 Diastolic blood pressure 88 mm[Hg] Fazal Antoni [facility] 02-18-2022 21:41-0400 Heart rate 84 /min Fazal Antoni [facility] 02-18-2022 21:41-0400 Mean blood pressure 101 mm[Hg] Fazal Antoni [facility] 02-18-2022 21:41-0400 Respiratory rate 17 /min Fazal Antoni [facility] 02-18-2022 21:41-0400 SaO2% (BldA) [Mass fraction] 98 % Darwin Easterwood Other [employer] Other 02-18-2022 21:41-0400 Systolic blood pressure 126 mm[Hg] Fazal Antoni [facility] 02-18-2022 20:42-0400 gluc 106 mg/dL Fazal Antoni [facility] 02-18-2022 20:42-0400 gluc Fazal Antoni [facility] 02-18-2022 20:33-0400 Body temperature 98.06 [degF] Fazal Antoni [facility] 02-18-2022 20:33-0400 Diastolic blood pressure 99 mm[Hg] Fazal Antoni [facility] 02-18-2022 20:33-0400 Heart rate 99 /min Fazal Antoni [facility] 02-18-2022 20:33-0400 Respiratory rate 18 /min Fazal Antoni [facility] 02-18-2022 20:33-0400 Systolic blood pressure 153 mm[Hg] Fazal Antoni [facility] 02-18-2022 10:00-0400 Body height 170.18 cm Bench Other [employer] [facility] [employer] Other 02-18-2022 10:00-0400 Body mass index (BMI) [Ratio] 38.52 kg/m2 Bench Other [employer] [facility] [employer] Other 02-18-2022 10:00-0400 Body temperature 97 [degF] Darwin [employer] Other [employer] [facility] [employer] Other 02-18-2022 10:00-0400 Body weight 111.59 kg Bench Other [employer] [facility] [employer] Other 02-18-2022 10:00-0400 Diastolic blood pressure 82 mm[Hg] Darwin [employer] Other [facility] [employer] Other 02-18-2022 10:00-0400 Respiratory rate 20 /min Darwin Easterwood Other [employer] [facility] [employer] Other 02-18-2022 10:00-0400 Systolic blood pressure 118 mm[Hg] Darwin Easterwood Other [employer] Other 02-11-2022 12:00-0400 Body height 170.18 cm Darwin Easterwood Other [employer] [facility] [employer] Other 02-11-2022 12:00-0400 Body mass index (BMI) [Ratio] 37.9 kg/m2 Darwin Easterwood Other [facility] [employer] Other 02-11-2022 12:00-0400 Body temperature 97.2 [degF] Darwin Easterwood Other [facility] [employer] Other 02-11-2022 12:00-0400 Body weight 109.77 kg Darwin Easterwood Other [employer] Other 02-11-2022 12:00-0400 Diastolic blood pressure 88 mm[Hg] Darwin Easterwood Other [employer] Other 02-11-2022 12:00-0400 Respiratory rate 20 /min Darwin Easterwood Other [employer] Other 02-11-2022 12:00-0400 SaO2% (BldA) [Mass fraction] 98 % Darwin Easterwood Other [employer] Other 02-11-2022 12:00-0400 Systolic blood pressure 126 mm[Hg] Darwin Easterwood Other [employer] Other 09-03-2021 10:02-0500 Diastolic blood pressure 86 mm[Hg] Unknown Unknown [facility] DO Work Phone: 09-03-2021 10:02-0500 Systolic blood pressure 110 mm[Hg] Unknown Unknown [facility] DO Work Phone: 09-03-2021 09:55-0500 Body height 170.18 cm Unknown Unknown [facility] DO Work Phone: 09-03-2021 09:55-0500 Body mass index (BMI) [Ratio] 32.36 kg/m2 Unknown Unknown [facility] DO Work Phone: 09-03-2021 09:55-0500 Body surface area Derived from formula 2.05 m2 Unknown Unknown [facility] DO Work Phone: 09-03-2021 09:55-0500 Body weight 93.71 kg Unknown Unknown [facility] DO Work Phone: 09-03-2021 09:55-0500 Diastolic blood pressure 84 mm[Hg] Unknown Unknown [facility] DO Work Phone: 09-03-2021 09:55-0500 Heart rate 72 /min Unknown Unknown [facility] DO Work Phone: 09-03-2021 09:55-0500 Systolic blood pressure 122 mm[Hg] Unknown Unknown [facility] DO Work Phone: Encounters Encounter Date Encounter Type Care Provider Facility Start: 04-07-2024 End: 04-07-[address] Not Available Start: 04-06-2024 End: 04-06-2024 Departed Referred SHIRLEY Jones Work Phone: [facility] Start: 04-06-2024 End: 04-06-2024 ambulatory CERTIFIED TRAVEL COUNSELOR Darwin Anaya Easterwood Work Phone: [facility] Work Phone: Start: 03-21-2024 End: 03-21-[address] Not Available Start: 03-18-2024 End: 03-18-2024 Emergency department patient visit [place] [facility] Start: 02-24-2024 End: 02-24-2024 Patient encounter procedure CERTIFIED TRAVEL COUNSELOR Darwin Easterwood Work Phone: [facility] [place] Work Phone: Start: 02-24-2024 End: 02-24-2024 ambulatory CERTIFIED TRAVEL COUNSELOR Darwin Anaya Easterwood Work Phone: [facility] Work Phone: Start: 01-25-2024 End: 01-25-2024 ambulatory CERTIFIED TRAVEL COUNSELOR Darwin Anaya Easterwood Work Phone: [facility] Work Phone: Start: 01-25-2024 End: 01-25-2024 Patient encounter procedure CERTIFIED TRAVEL COUNSELOR Darwin Joneserwood [facility] Phone[facility] Work [facility]: Start: 01-24-2024 End: 01-24-2024 Patient encounter procedure CERTIFIED TRAVEL COUNSELOR Darwin Joneserwood Work Phone: [facility] [place] Work Phone: Start: 01-24-2024 End: 01-24-2024 ambulatory CERTIFIED TRAVEL COUNSELOR Darwin aJclyn Easterwood Work Phone: [facility] Work Phone: Start: 12-27-2023 End: 12-27-2023 Patient encounter procedure CERTIFIED TRAVEL COUNSELOR Darwin Easterwood Work Phone: [facility] [place] Work Phone: Start: 12-27-2023 End: 12-27-2023 ambulatory CERTIFIED TRAVEL COUNSELOR Darwin Anaya Easterwood Work Phone: [facility] Work Phone: Start: 12-24-2023 End: 12-24-2023 ambulatory CERTIFIED TRAVEL COUNSELOR Darwin Anaya Easterwood Work Phone: [facility] Work Phone: Start: 12-24-2023 End: 12-24-2023 Patient encounter procedure CERTIFIED TRAVEL COUNSELOR Darwin Joneserwood Work Phone: [facility] [place] [facility] Work Phone: Start: 11-30-2023 End: 11-30-2023 Patient encounter procedure CERTIFIED TRAVEL COUNSELOR Darwin Joneserwood Work Phone: [facility] [place] Work Phone: Start: 11-30-2023 End: 11-30-2023 ambulatory CERTIFIED TRAVEL COUNSELOR Darwin Anaya Easterwood Work Phone: [facility] Work Phone: Start: 11-25-2023 End: 11-25-2023 ambulatory CERTIFIED TRAVEL COUNSELOR Darwin Anaya Easterwood Work Phone: [facility] Work Phone: Start: 11-25-2023 End: 11-25-2023 Patient encounter procedure CERTIFIED TRAVEL COUNSELOR Darwin Joneserwood Work Phone: [facility] Work Phone: Start: 11-18-2023 End: 11-19-2023 ambulatory RUBY WHITTINGTON Facility:[facility] Start: 11-18-2023 End: 11-18-2023 Patient encounter procedure Ruby Whittington MD Work Phone: Endocrinology Comment on above: 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); Class 2 obesity; Irregular menstruation, unspecified; Female infertility; Calculus of kidney Start: 11-01-2023 End: 11-01-2023 Patient encounter procedure CERTIFIED TRAVEL COUNSELORAkilah Orosco Yasir Work Phone: [facility] Work Phone: Start: 11-01-2023 End: 11-01-2023 ambulatory CERTIFIED TRAVEL COUNSELORAkilah Anaya Yasir Work Phone: [facility] Work Phone: Start: 10-20-2023 End: 10-20-2023 Patient encounter procedure CERTIFIED TRAVEL COUNSEL[place]Akilah [place] Work Phone: [facility] Work Phone: Start: 10-01-2023 End: 10-01-2023 Patient encounter procedure CERTIFIED TRAVEL COUNSELORAkilah Orosco Yasir Work Phone: [facility] Work Phone: Start: 10-01-2023 End: 10-01-2023 ambulatory CERTIFIED TRAVEL COUNSELORAkilah Anaya [place] Work Phone: [facility] Work Phone: Start: 09-29-2023 End: 09-29-2023 ambulatory Tyrone Rock Facility:[facility] Start: 09-29-2023 End: 09-29-2023 Patient encounter procedure Tyrone Rock [facility] Start: 09-21-2023 End: 09-21-2023 ambulatory Darwin Jones Other Area [employer] Other Start: 09-21-2023 Office outpatient vi sit 15 minutes aDrwin Jones [facility] Start: 08-30-2023 Patient encounter procedure CERTIFIED TRAVEL COUNSELORAkilah Jonesjoey Work Phone: [facility]- Start: 08-25-2023 Follow-up encounter Darwin Jones [facility] Start: 08-25-2023 End: 08-25-[address] [facility] Agent [employer] Other Start: 08-25-2023 End: 08-25-2023 Patient encounter procedure CERTIFIED TRAVEL COUNSELOR Darwin Jones Work Phone: [facility] Physician [facility] Work Phone: Start: 07-23-2023 End: 07-23-2023 Patient encounter procedure CERTIFIED TRAVEL COUNSELOR Darwin Jones Work Phone: [facility] Physician [facility] Work Phone: Start: 07-16-2023 Telephone encounter Ruby sneed MD Work Phone: Endocrinology Comment on above: Appointment Start: 06-23-2023 End: 06-23-2023 ambulatory Darwin Yasir Other Area [employer] Other Start: 06-23-2023 Office outpatient vi sit 15 minutes Darwin Robertanisawood [facility] Start: 06-08-2023 End: 06-08-2023 ambulatory FRANCY GAN Facility:[facility] Start: 06-08-2023 End: 06-08-2023 Patient encounter procedure Francy Gan PA-C Work Phone: Otolaryngology Comment on above: Dysphagia, unspecifi ed type (Primary Dx); LPRD (laryngopharyngeal reflux disease) Start: 05-26-2023 End: 05-26-2023 ambulatory Darwin Roberterwood Other [employer] Other Start: 05-26-2023 Office outpatient vi sit 25 minutes Darwin Roberterwood [facility] Start: 05-06-2023 End: 05-06-2023 Patient encounter procedure CERTIFIED TRAVEL COUNSELOR Darwincary Jonesermacy Work Phone: [facility]-Ultrasound [facility] [place] Work Phone: Start: 05-06-2023 End: 05-06-2023 ambulatory CERTIFIED TRAVEL COUNSELOR Darwin Jones Work Phone: [facility] Work Phone: Start: 04-28-2023 End: 04-28-2023 ambulatory Darwin Jones Other Area [employer] Other Start: 04-28-2023 Office outpatient vi sit 40 [facility] Start: 04-16-2023 End: 04-16-2023 [facility] Other Start: 04-16-2023 Encounter for genera l adult medical examination without abnormal findings [facility] Start: 04-16-2023 Periodic preventive med est patient 18-39 yrs [facility] Start: 04-08-2023 End: 04-08-2023 Departed Referred SHIRLEY Jones Work Phone: [facility]-Employee Benefit Screening Start: 04-08-2023 End: 04-08-2023 ambulatory CERTIFIED TRAVEL COUNSELOR Darwin Jones Work Phone: [facility] Work Phone: Start: 03-22-2023 End: 03-22-2023 Emergency department patient visit Gabriel Curtis [facility] Start: 03-22-2023 End: 03-22-2023 Emergency department patient visit SHIRLEY Jones Work Phone: [facility]-Emergency Room Work Phone: Start: 02-28-2023 End: 02-28-2023 Departed Referred CERTIFIED TRAVEL COUNSELOR Darwin Jones Work Phone: [facility]-Employee Benefit Screening Start: 02-28-2023 End: 02-28-2023 ambulatory CERTIFIED TRAVEL COUNSELOR Darwin Anaya Easterwood Work Phone: [facility] Work Phone: Start: 02-28-2023 End: 02-28-2023 Patient encounter procedure CERTIFIED TRAVEL COUNSELOR Darwin Roberterwood Work Phone: [facility] [address] Work Phone: Start: 12-10-2022 End: 12-10-2022 ambulatory CERTIFIED TRAVEL COUNSELOR Darwin Joneserwood Work Phone: [facility] Work Phone: Start: 12-10-2022 End: 12-10-2022 Patient encounter procedure CERTIFIED TRAVEL COUNSELOR Darwin Joneserwood Work Phone: [facility] [place] Work Phone: Start: 12-09-2022 End: 12-09-[address] NONE LISTED REQUEST Facility: Start: 12-08-2022 End: 12-08-2022 ambulatory Ofelia Hester Other Area [employer] Other Start: 12-08-2022 Encounter by ruben limon Ofelia Hester [facility] Start: 10-22-2022 End: 10-22-2022 ambulatory Lilly Blackmont Other Area [employer] Other Start: 10-22-2022 Telephone encounter Lilly Luke [facility] Start: 10-16-2022 End: 10-16-2022 ambulatory CERTIFIED TRAVEL COUNSELOR Darwin Jaclyn Easterwood Work Phone: [facility] Work Phone: Start: 10-16-2022 End: 10-16-2022 Patient encounter procedure CERTIFIED TRAVEL COUNSELOR Darwin Roberterwood Work Phone: [facility] [place] Work Phone: Start: 10-15-2022 End: 10-15-2022 ambulatory Ofelia Missler Other Area [employer] Other Start: 10-15-2022 Telephone encounter [facility] Start: 10-05-2022 Registered Recurring SHIRLEY Jones Work Phone: [facility]-Weight Management Work Phone: Start: 10-05-2022 [facility] Weight Management f/u [facility] Start: 10-05-2022 End: 10-05-2022 ambulatory Ofelia Missler Other Area [facility] Security Other Start: 09-28-2022 ambulatory Ruby Whittington MD Work Phone: Endocrinology Comment on above: Synthroid Start: 09-02-2022 ([facility] Weight Management f/u [facility] Start: 09-02-2022 End: 09-02-2022 ambulatory Ofelia Missler Other Area [employer] Other Start: 08-25-2022 ([facility]) WMN Init ial Provider Lilly Luke [facility] Start: 08-25-2022 End: 08-25-2022 ambulatory Lilly Luke Other Area [employer] Other Start: 07-31-2022 [facility] f/u [facility] Start: 07-31-2022 End: 07-31-2022 ambulatory Ofelia Missler Other [employer] Other Start: 07-20-2022 End: 07-20-2022 ambulatory Lilly Luke Other [employer] Other Start: 07-20-2022 Telephone encounter Lilly E[facility] Start: 07-14-2022 End: 07-14-2022 Patient encounter procedure Ruby Whittington MD Work Phone: Endocrinology Comment on above: 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); Class 2 obesity Start: 07-08-2022 End: 07-08-2022 ambulatory Ofelia Hester Other Area [employer] Other Start: 07-08-2022 Telephone encounter [facility] Start: 06-17-2022 ([facility]/U) Weight Management f/u [facility] Start: 06-17-2022 End: 06-17-2022 ambulatory Ofelia Hester Other Area [employer] Other Start: 06-04-2022 End: 06-04-2022 ambulatory Sima Ross Other Area [employer] Other Start: 06-04-2022 Office outpatient vi sit 15 minutes Sima Ross [facility] Start: 05-27-2022 End: 05-27-2022 ambulatory Lilly Luke Other [facility] [employer] Other Start: 05-27-2022 IBT FOR OBESITY GROU P 2-10 30M Lilly Neymarsonia [facility] Start: 05-25-2022 End: 05-25-2022 ambulatory Darwin Jones Other Area [employer] Other Start: 05-25-2022 Telephone encounter Geoffrey murphy MD Work Phone: Endocrinology Comment on above: Appointment (LVM for patient that appt on 05/[address] George has been rescheduled to 07/[address] [facility] with Dr. Robertson. sending mail reminder as well. ) Start: 05-19-2022 End: 05-19-2022 ambulatory Ofelia Hester Other Area [employer] Other Start: 05-19-2022 [facility] Start: 05-18-2022 End: 05-18-2022 ambulatory Ofelia Hester Other [employer] Other Start: 05-18-2022 Nutrition therapy Ofelia Hester [facility] Start: 04-21-2022 End: 04-21-2022 ambulatory Darwin Easterwood Other Area [employer] Other Start: 04-21-2022 Telephone encounter Darwin Easterwood [facility] Start: 04-17-2022 End: 04-17-2022 ambulatory Darwin Easterwood Other [employer] Other Start: 04-17-2022 Office outpatient vi sit 25 minutes Darwin Easterwood [facility] Start: 04-15-2022 End: 04-15-2022 ambulatory Darwin Easterwood Other [employer] Other Start: 04-15-2022 Telephone encounter Darwin Easterwood [facility] Start: 04-14-2022 End: 04-14-2022 Patient encounter procedure PHYSICIAN NO [facility] [place] Start: 04-10-2022 End: 04-10-2022 ambulatory Lilly Neymart Other Area [employer] Other Start: 04-10-2022 Telephone encounter Lillyakilah Luke [facility] Start: 04-06-2022 End: 04-06-2022 Patient encounter procedure PHYSICIAN NO [facility] [place] Start: 02-24-2022 End: 02-24-2022 ambulatory Darwin Roberterwood Other Area [employer] Other Start: 02-24-2022 [facility] Start: 02-18-2022 End: 02-18-2022 Emergency department patient visit Fazal Thompsonner [facility] Start: 02-18-2022 End: 02-18-2022 ambulatory Darwin Yasir Other Area [employer] Other Start: 02-18-2022 [facility] vi [facility] Start: 02-18-2022 [facility] Start: 02-13-2022 End: 02-13-2022 Patient encounter procedure PHYSICIAN NO [facility]-Ultrasound [facility] [place] Start: 02-11-2022 End: 02-11-2022 ambulatory Darwin Jones Other Area [employer] Security Other Start: 02-11-2022 Office [facility] ne [facility] Start: 02-10-2022 End: 02-10-2022 Departed Referred PHYSICIAN NO [facility]-Employee Benefit Screening Start: 09-04-2021 Chart Update Unknown Unknown [facility] [facility] DO Work Phone: Start: 09-03-2021 Office outpatient ne w 45 minutes Unknown Unknown -[facility]-[address] 600 DO Work Phone: Procedures Date Procedure Procedure Detail Performing Clinician Start: 02-13-2022 US scan of thyroid PHYS ICIAN NO FAMILY section Unknown Unk nown section Fazal Thompsonakilah er NEGATED: Highlighted row has not occurred! Total colonoscopy Unknown Unknown Plan of Treatment Date Care Activity Detail Author Start: 03-23-2026 Urine microalbumin profile [facility] Start: 08-16-2023 Behavioral Health Screening Behavioral Health Screening [facility] Start: 05-06-2023 US scan of thyroid US thyroid [facility] Start: 04-16-2023 Covid-19 Vaccine ( season) Covid-19 Vaccine ( season) [facility] Start: 04-16-2023 Influenza vaccination Influenza Vacc ine (#1) [facility] Start: 04-08-2023 [facility] Start: 08-16-2022 DEPRESSION ASSESSMENT DEPRESSION ASS ESSMENT [facility] Start: 04-16-2022 Influenza vaccination INFLUENZA (#1) [facility] Start: 08-16-2021 DEPRESSION ASSESSMENT DEPRESSION ASS ESSMENT [facility] Start: 01-10-2021 COVID-19 VACCINE (3 - Booster) COVID-19 VACCINE (3 - Booster) [facility] Start: 2017 PAP TESTING PAP TESTING [facility] Start: 2017 Screening for malign ant neoplasm of cervix Pap Testing [facility] Start: 2015 Urine microalbumin profile DTAP,TDAP,TD (1 - Tdap) [facility] Start: 2014 ANNUAL PCP TEAM BARKEEP VINH DISEASE VISIT ANNUAL PCP TEAM CHRONIC DISEASE VISIT [facility] Start: 2014 HEPATITIS C SCREENING HEPATITIS C [facility] Start: 2014 Hepatitis C screening Hepatitis C [facility] Start: 2014 HIV SCREENING HIV SCRE[facility]ING [facility] Start: 2014 HIV screening HIV Screening [facility] Start: 2010 PEDS TO ADULT TRANSI TION ANNUAL ASSESSMENT PEDS TO ADULT TRANSITION ANNUAL ASSESSMENT [facility] Start: 2008 PEDS TO ADULT TRANSI TION INITIAL DISCUSSION PEDS TO ADULT TRANSITION INITIAL DISCUSSION [facility] Start: 2007 HPV VACCINE (1 - 2-d ose series) HPV VACCINE (1 - 2-dose series) [facility] Start: 2005 HPV Vaccine (1 - 2-d ose series) HPV Vaccine (1 - 2-dose series) [facility] Start: 1996 COVID-19 VACCINE (#1) COVID-19 VACCI NE (#1) [facility] Start: 1996 HEPATITIS B (1 of 3 - 3-dose series) HEPATITIS B (1 of 3 - 3-dose series) [facility] Patient referral [facility] Work Phone: Progesterone [Mass/volume] in Serum or Plasma [facility] Progesterone [Mass/volume] in Serum or Plasma [facility] Progesterone [Mass/volume] in Serum or Plasma [facility] Progesterone [Mass/volume] in Serum or Plasma [facility] Progesterone [Mass/volume] in Serum or Plasma [facility] End: 07-07-2024 XR MODIFIED BARIUM SWALLOW W SPEECH THERAPY XR MODIFIED BARIUM SWALLOW W SPEECH THERAPY Radiology Routine Dysphagia, unspecified type 1 Occurrences starting 06/08/2023 until 07/07/2024 [facility] Work Phone: Comment on above: 1 Occurrences starti ng 06/08/2023 until 07/07/[address] [facility] Work Phone: [facility] Immun[facility] Immunization Date Immunization Notes Care Provider Vaishali yo 05-21-2023 influenza virus vaccine, unspecified formulation Tyrone Rock [facility] 05-21-2023 influenza, injectabl e, 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, 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 free CERTIFIED TRAVEL COUNSELOR Darwin Easterwood Work Phone: [facility] 05-21-2023 influenza, injectabl e, 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, contains 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 Darwin Easterwood Other Area [employer] Other 06-15-2022 influenza, injectabl e, 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, 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 free CERTIFIED TRAVEL COUNSELOR Darwin Easterwood Work Phone: [facility] 06-15-2022 influenza, injectabl e, 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, contains 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 Darwin Easterwood Other [facility] Work Phone: 06-15-2022 influenza virus vaccine, unspecified formulation Francy Gan PA-C Work Phone: [facility] 06-15-2021 influenza nasal, unspecified formulation Ruby Whittington MD Work Phone: [facility] Work Phone: 06-15-2021 influenza virus vaccine, unspecified formulation Tyrone Rock [facility] 06-15-2021 influenza, injectabl e, 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, 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 free CERTIFIED TRAVEL COUNSELOR Darwin Easterwood Work Phone: [facility] 06-15-2021 influenza, injectabl e, 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, contains 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 Darwin Easterwood Other [facility] Work Phone: 05-15-2021 influenza nasal, unspecified formulation Ruby Whittington MD Work Phone: [facility] Work Phone: 05-15-2021 influenza virus vaccine, unspecified formulation Tyrone Rock [facility] 05-15-2021 influenza, high dose seasonal, 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-free Unknown Unknown [facility] Work Phone: 11-15-2020 Pfizer-BioNTech COVID-19 Vacc 30 MCG/0.3ML Intramuscular Suspension Unknown Unknown [facility] 11-12-2020 COVID-19 vaccine, unknown product (NON-US) Ruby Whittington MD Work Phone: [facility] Work Phone: 10-24-2020 Pfizer-BioNTech COVID-19 Vacc 30 MCG/0.3ML Intramuscular Suspension Unknown Unknown [facility] 03-23-2016 tetanus toxoid, reduced diphtheria toxoid, and acellular pertussis vaccine, adsorbed Unknown Unknown [facility] Work Phone: 03-23-2016 varicella virus vaccine Unknown Unknown [facility] Work Phone: 03-01-2002 diphtheria, tetanus toxoids and acellular pertussis vaccine, unspecified formulation Unknown Unknown [facility] Work Phone: 03-01-2002 DTaP, unspecified formulation Tyrone Rock [facility] 03-01-2002 measles, mumps and rubella virus vaccine Unknown Unknown [facility] Work Phone: 03-01-2002 poliovirus vaccine, inactivated Unknown Unknown [facility] Work Phone: 03-01-2002 poliovirus vaccine, unspecified formulation Tyrone Rock [facility] 04-20-2001 hepatitis B vaccine, pediatric or pediatric/adolescent dosage Unknown Unknown [facility] Work Phone: 01-03-1998 diphtheria, tetanus toxoids and acellular pertussis vaccine, unspecified formulation Unknown [facility] Work Phone: 01-03-1998 DTaP, unspecified formulation Tyrone Rock [facility] 09-18-1997 measles, mumps and rubella virus vaccine Unknown Unknown [facility] Work Phone: 09-18-1997 varicella virus vaccine Unknown Unknown [facility] Work Phone: 03-30-1997 hepatitis B vaccine, pediatric or pediatric/adolescent dosage Unknown Unknown [facility] Work Phone: 1996 diphtheria, tetanus toxoids and acellular pertussis vaccine, unspecified formulation Unknown Unknown [facility] Work Phone: 1996 DTaP, unspecified formulation Tyrone Polancopsey [facility] 1996 trivalent poliovirus vaccine, live, oral Unknown Unknown [facility] Work Phone: 1996 diphtheria, tetanus toxoids and acellular pertussis vaccine, unspecified formulation Unknown [facility] Work Phone: 1996 DTaP, unspecified formulation Tyrone Pranav [facility] 1996 haemophilus influenz ae type b vaccine, conjugate unspecified formulation Unknown Unknown [facility] Work Phone: 1996 Hib, unspecified formulation Tyrone Rock [facility] 1996 trivalent poliovirus vaccine, live, oral Unknown Unknown [facility] Work Phone: 1996 diphtheria, tetanus toxoids and acellular pertussis vaccine, unspecified formulation Unknown Unknown [facility] Work Phone: 1996 DTaP, unspecified formulation Tyrone Polancopsey [facility] 1996 diphtheria, tetanus toxoids and acellular pertussis vaccine, unspecified formulation Unknown Unknown [facility] Work Phone: 1996 DTaP, unspecified formulation Tyrone Polancopsey [facility] 1996 haemophilus influenz ae type b vaccine, conjugate unspecified formulation Unknown Unknown [facility] Work Phone: 1996 Hib, unspecified formulation Tyrone Rock [facility] 1996 measles, mumps and rubella virus vaccine Unknown Unknown [facility] Work Phone: 1996 varicella virus vaccine Unknown Unknown [facility] Work Phone: 1996 diphtheria, tetanus toxoids and acellular pertussis vaccine, unspecified formulation Unknown Unknown [facility] Work Phone: 1996 DTaP, unspecified formulation Tyrone Polancopsey [facility] 1996 haemophilus influenz ae type b vaccine, conjugate unspecified formulation Unknown Unknown [facility] Work Phone: 1996 hepatitis B vaccine, pediatric or pediatric/adolescent dosage Unknown Unknown [facility] Work Phone: 1996 Hib, unspecified formulation Tyrone Rock [facility] 1996 trivalent poliovirus vaccine, live, oral Unknown Unknown [facility] Work Phone: 1996 hepatitis B vaccine, pediatric or pediatric/adolescent dosage Unknown Unknown [facility] Work Phone: Payers Date Payer Category Payer Self-pay [id number] 2021 Unknown 1996 Unknown [id number] 2.16.84 [id number] 1996 Unknown [id number] 2.16.8 [id number] 1996 Unknown [id number] 2.16.8 [id number] 1996 Unknown [id number] 2.16.8 [id number] 1996 Unknown [id number] 2.16.8 [id number] 1996 Unknown [id number] 2.16.84 [id number] 1996 Unknown [id number] 2.16.84 [id number] 1996 Unknown [id number] 2.16.84 [id number] 1959 Unknown [id number] Unknown [id number] Unknown [id number] [facility] [id number] Unknown [id number] 2.16.8 [id number] Unknown [id number] 2.16.8 [id number] Unknown [id number] 2.16.8 [id number] Unknown [id number] 2.16.8 [id number] Unknown [id number] 2.16.8 [id number] Unknown [id number] [id number] Unknown [id number] [id number] [id number] Unknown [id number] [id number] [id number] Unknown [id number] Social History Date Type Detail Facility Start: 07-14-2022 End: 06-08-2023 No alcohol use No alcohol use [place] [address] DO Work Phone: Start: 12-29-2020 End: 10-07-2023 Tobacco smoking status PAIS Never smoked tobacco (finding) [facility] Start: 1995 Sex Assigned At Female [facility] Start: 07-14-2022 End: 06-08-2023 Sex Assigned At [facility] Agent Ace Other Tobacco smoking status Never [facility] Tobacco smoking status [facility] Tobacco smoking consumption unknown [facility] Start: 1995 Sex Assigned At Not on file [facility] Start: 04-17-2022 End: 07-14-2022 Exposure to SARS-CoV-2 (event) Not sure [facility] Start: 07-14-2022 Tobacco use and exposure Smokeless tobacco non-user [facility] Start: 07-14-2022 End: 11-18-2023 Alcohol intake Lifetime non-drinker (finding) [facility] Start: 07-13-2022 Gender identity Identifies as female gender (finding) [facility] NEGATED: Highlighted rowStart: KATHY History of tobacco use Passive smoker [facility] Medical Equipment Procedure Code Equipment Code Equipment Origin al Text Equipment Identifier Dates [facility] 31G X 5 MM Start: 05-18-2022 Functional Status Date Assessment Result Facility 03-18-2024 Functional Status N/A [facility] 09-29-2023 Functional Status N/A [facility] 03-22-2023 Functional Status N/A [facility] 02-18-2022 Functional Status N/A [facility] Clinical Notes 01-14-2022 to 03-18-2024 Ruby Whittington [...] provider. Document Revised: 01/31/2021 Document Reviewed: 01/31/2021 [employer] Patient Education 2022 Handpressions. 03/18/2024 12:15:03 Subchorionic Hematoma Subchorionic Hematoma A [...] provider. Document Revised: 04/28/2021 Document Reviewed: 04/28/2021 [employer] Patient Education 2022 Handpressions. Follow Up Care 03/18/2024 08:08:01 With:Rogelio Nath Address: [address], [facility] [address] [place] [address]- Business (1) When:03/21/2024 11:54:39 With:DARWIN JONES Address: [address] [place] [phone] Business (1) When:Within 3 Day(s) [facility] 03-18-2024 Note ED Patient Education Note Obstetrics [...] provider. Document Revised: 01/31/2021 Document Reviewed: 01/31/2021 [employer] Patient Education ? 2022 [employer] Subchorionic Hematoma A hematoma is a collection of blood outside of the blood vessels. A subchorionic hematoma is a collection of blood between the outer wall of the embryo (chorion) and the inner wall of the uterus. This condi (more content not included)... [facility] 11-18-2023 Note HNO ID: [id number] Author: RUBY WHITTINGTON MD Service: ? Author [...] 1 year. Ruby Whittington MD Endocrinology Staff [facility] 11-18-2023 History of Presen t illness Narrative [...] MD Endocrinology Staff documented in this encounter [facility] 11-18-2023 Instructions Odalis Greene - 11/18/2023 7:58 AM EDT Thank you for choosing the [facility] Department of Endocrinology, Diabetes and Metabolism. Did you know that you need to call 48 hours in advance of your scheduled visit, if you are unable to make your appointment? [facility] thanks you for your commitment, because patients not showing to their appointment results in a lost opportunity for patients to receive world class health care at the [facility]. To Cancel an appointment, please choose one of the following: - Call the Appointment Call Center at [phone] - From [employer], Go to Appointments - Cancel Appts If cancelling, consider your need to reschedule to prevent further delays in your care. To Schedule an appointment, please choose one of the following: - Call the Appointment Call Center at [phone] - From [employer], Go to Appointments - Request an Appt documented in this encounter [facility] 09-29-2023 Hospital Discharg e instructions Patient Education [...] numbers. This can be done either in Beninese (U.S[place] or metric measurements. Note that charts and online BMI calculators are available to help you find your BMI quickly and easily without having to do these calculations yourself. To calculate your BMI in Beninese (U.S.) measurements: 1.Measure your weight in pounds [...] Centers for Disease Control and Prevention: www.cdc.gov [place] Heart Association: www.heart.org National Heart, Lung, and Blood [place]: www.nhlbi.nih.gov Summary Body mass index (BMI) is a number that is calculated from a person's weight and height. BMI may help estimate how much of a person's weight is composed of fat. BMI can help identify those who may be at higher risk for certain medical problems. BMI can be measured using Beninese measurements or metric measurements. BMI charts are used to identify whether you are underweight, normal weight, overweight, or obese. This information is not intended to replace advice given to you by your health care provider. Make sure you discuss any questions you have with your health care provider. Document Revised: 04/24/2020 Document Reviewed: 03/01/2020 [employer] Patient Education 2022 Handpressions. 09/29/2023 11:04:59 Sinus Infection, Adult Sinus Infection, [...] saline washes). ?Medicines that treat allergies (antihistamines). ?Wjmx-zyu-ktlajbk pain relievers. If caused by bacteria, your [...] at home: Medicines Take, use, or apply skbg-bhs-nywycic and prescription medicines only as told by [...] and water are not available, use hand editor dictionary. Do not smoke. Avoid being around people [...] provider. Document Revised: 07/07/2022 Document Reviewed: 07/07/2022 [employer] Patient Education 2022 Handpressions. Follow Up Care 09/29/2023 09:12:00 With:DARWIN JONES CNP Address: [address] [place] [address] [place] [address]- When: Unknown [facility] 09-21-2023 Evaluation note Encounter Date [...] BMI is required on scripts in the [facility]. Sep, Other *Progress note was completed with the assistance of voice recognition software for dictation purposes. Please excuse any grammatical errors that were not corrected during review process. [employer] Other 01-10-2024 Evaluation note* Encounter Date Diagnosis [...] that were not corrected during review process. [employer] Other 12-01-2023 Miscellaneous Notes* Telephone Encounter - Kenan Gomez - 07/16/2023 9:39 AM EST LVM to let patient know their appt has been rescheduled with Dr. Whittington. documented in this encounterUniversity [facility]-2023 Evaluation note* Encounter Date Diagnosis Assessment Notes [...] comfortable prescribing this medication at this time. [employer] Other 10-24-2023 NoteHNO ID: [id number] Author: Francy Gan PA-C Service: ? Author Type: Physician Positive Printer Operator Type: Progress Notes Filed: 06/08/2023 2:53 PM [...] will be in touch with results via BeMyGuest HPI: Tawnya is a 27 year old [...] testing/treatment Medical [facility]: [facility] of Present illness Narrative* Francy Gan [...] will be in touch with results via [facility] HPI: Tawnya is a 27 year old [...] Level: 3 - Low documented in this encounterUniversity [facility]23 Instructions* Patient Instructions* Francy Gan PA-C - 06/08/2023 2:16 PM EDT Continue the omeprazole for another 1.5 months documented in this encounterUniversity [facility]als [facility]10-11-2023 Evaluation note* Encounter Date Diagnosis Assessment Notes [...] that were not corrected during review process. [employer] Other 09-13-2023 Evaluation note* Encounter Date Diagnosis [...] Discussed short term 8 week course vs. terminal clerk management. Discussed pros and cons of taking [...] that were not corrected during review process. [employer] Other 09-01-2023 Evaluation note* Encounter Date Diagnosis [...] SCANNED INTO PATIENT CHART AND FAXED TO [employer]. Apr, Other We did briefly discussed the ER visit and concerns. I will need to obtain these records from [facility] as well as the imaging and follow-up regarding the ER visit and the possible thyromegaly next week. Patient verbalizes understanding. *Progress note was completed with the assistance of voice recognition software for dictation purposes. Please excuse any grammatical errors that were not corrected during review process. [employer] Other 08-08-2023 Hospital Discharge instructions Patient Education 03/22/2023 22:52:44 Urinary Tract Infection, Adult, Rvuc-tu-Ccbu Urinary Tract Infection, Adult A urinary tract [...] Follow these instructions at home: Medicines Take ikdw-ktm-igjizjr and prescription medicines only as told by [...] provider. Document Revised: 03/14/2021 Document Reviewed: 03/14/2021 [employer] Patient Education 2022 Handpressions. Follow Up Care 03/22/2023 19:54:03 With:DARWIN JONES Address: [address] [place] [address] [place] [address]- [phone] Business (1) When:03/25/2023 Comments:Follow-up with your primary care provider in 3 to 5 days. If symptoms worsen, do not improve, or new symptoms arise please report back to emergency department for further evaluation. [facility]08-07-2023 Evaluation + Plan note Diagnostic Tests Pending * Urine Culture 03/22/23 [facility]03-02-2023 Evaluation note* Encounter Date Diagnosis Assessment Notes Treatment Notes Treatment Clinical Notes Oct, Nausea & vomiting (ICD-10 - R11.2) [employer] Other 02-20-2023 Evaluation note* Encounter Date Diagnosis [...] Encounter for weight management (ICD-10 - Z76.89) [employer] Other 02-13-2023 Miscellaneous Notes* Addendum Note - [...] daily. Ruby Whittington MD documented in this encounterUniversity [facility]01-18-2023 Evaluation note* Encounter Date Diagnosis Assessment Notes [...] Encounter for weight management (ICD-10 - Z76.89) [employer] Other 01-10-2023 Evaluation note* Encounter Date Diagnosis [...] as inspiration Patient set the following goals: [employer] Other 12-16-2022 Evaluation note* Encounter Date Diagnosis [...] E06.3) She was recently seen by an rotational moulding operator at [facility] for elevated TSH. She is currently on adequate supplementation and will follow up with them. Jul, Daytime sleepiness (ICD-10 - R40.0) Continue to work on good sleep hygiene and control factors that she can.This could also improve with additional water intake. Jul, Mild depression (ICD-10 - F32.9) Jul, Encounter for weight management (ICD-10 - Z76.89) [facility] [facility] Other 11-29-2022 History of Present illness Narrative* [...] Endocrinology Staff CC: Darwin Jones APRN, CNP. [address] [place], [place] [id number] documented in this encounterUniversity Hospitals [facility] Center11-29-2022 Instructions* Patient Instructions* Soo Begum Ma - 07/14/2022 8:46 AM EST Thank you for choosing the [facility] Department of Endocrinology, Diabetes and Metabolism. Did you know that you need to call 48 hours in advance of your scheduled visit, if you are unable to make your appointment? The [facility] thanks you for your commitment, because patients not showing to their appointment results in a lost opportunity for patients to receive [facility] health care at the [facility]. To Cancel an appointment, please choose one of the following: - Call the Appointment Call Center at [phone] - From BeMyGuest, Go to Appointments - Cancel Appts If cancelling, consider your need to reschedule to prevent further delays in your care. To Schedule an appointment, please choose one of the following: - Call the Appointment Call Center at [phone] - From BeMyGuest, Go to Appointments - Request an Appt documented in this encounterUniversity Hospitals [facility] Center11-02-2022 Evaluation note* Encounter Date Diagnosis Assessment Notes [...] samples and titrate her up slowly until [facility] insurance kicks in in August. We discussed [...] will discuss at later date if needed. [employer] Other 10-20-2022 Evaluation note* Encounter Date Diagnosis [...] Pt understood and agreed to tx plan. [employer] Other 10-12-2022 Evaluation note* Encounter Date Diagnosis [...] patient set personal goal using given handout. [employer] Other 10-10-2022 Miscellaneous Notes* Telephone Encounter - Linn Hancock - 05/25/2022 2:35 PM EDT LVM for patient that appt on 05/[address] George has been rescheduled to 07/[address] [facility] with Dr. Robertson. sending mail reminder as well. 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 [employer] Other 07-07-2022 Hospital Discharge instructions Patient Education [...] Follow these instructions at home: Medicines Take tcav-xgr-dmyanbc and prescription medicines only as told by [...] 04/27/2002 Document Revised: 08/05/2018 Document Reviewed: 05/14/2017 Spring[employer] Patient Education 2020 Handpressions. 02/18/2022 22:49:49 Migraine Headache Migraine Headache A [...] Follow these instructions at home: Medicines Take uuzk-dmr-kvenmce and prescription medicines only as told by your health care provider. Ask your health care provider if the medicine prescribed to you: ?Requires you to avoid driving or using heavy machinery. ?Can cause constipation. You may need to take these actions to prevent or treat constipation: ?Drink enough fluid to keep your urine pale yellow. ?Take bxao-rkn-telnxqx or prescription medicines. ?Eat foods that are [...] 08/02/2006 Document Revised: 11/24/2019 Document Reviewed: 09/14/2019 Spring[employer] Patient Education 2020 Handpressions. Follow Up Care 02/18/2022 20:32:17 [facility] Address: [address] [place] [phone] Business (1) When:Within 3 Day(s) [facility]07-06-2022 Evaluation + Plan noteExtracted from: Title:ED Note [...] voices understanding and is agreeable to plan. [facility]07-06-2022 Evaluation note* Encounter Date Diagnosis Assessment Notes [...] and remind her of lab draw at [facility]. Feb, Thyromegaly (ICD-10 - E01.0) Discussed thyroid [...] that were not corrected during review process. 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 Medical History Abnormal thyroid ult rasound February 2022 work-up pending by ENT Surgical History 2019 Surgical History Cystoscopy 05/2021 Surgical History 2020 Hospitalization History See surgical hx 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 documented in this encounter [facility]* Diagnosis 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 documented in this encounter [facility]* Diagnosis Dysphagia, unspecified type- Primary LPRD (laryngopharyngeal reflux disease) Other diseases of larynx documented in this encounter [facility]* Diagnosis Onset Date Resolution Status Obesity acute [facility] Work Phone: Evaluation note* Diagnosis 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 Irregular menstruation, unspecified Female infertility Female infertility of unspecified origin Calculus of kidney documented in this encounter [facility]* Diagnosis Onset Date Resolution Status Obesity acute Class 2 obesity with body ma ss index (BMI) of 37.0 to 37.9 in adult [facility] Work Phone: Evaluation note* Diagnosis Onset Date Resolution Status Obesity acute Class 2 obesity with body ma ss index (BMI) of 37.0 to 37.9 in adult acute Class 2 obesity with body ma ss index (BMI) of 37.0 to 37.9 in adult [facility] Work Phone: evaluation note* Diagnosis Onset Date Resolution Status Class 2 obesity with body ma ss index (BMI) of 37.0 to 37.9 in adult acute Class 2 obesity with body ma ss index (BMI) of 37.0 to 37.9 in adult [facility] Work Phone: Evaluation note* Diagnosis Onset Date Resolution Status Class 2 obesity with body ma ss index (BMI) of 37.0 to 37.9 in adult [facility] Work Phone: [place] general Narrative - Reported* Type Description Date [...] Surgical History 2020 Hospitalization History See surgical eFlix Other Hiscxbi general Narrative - Reported* Type Description Date [...] Surgical History 2020 Hospitalization History See surgical eFlix Other Hisnieu general Narrative - Reported* Type Description Date [...] Surgical History 2020 Hospitalization History See surgical [employer] Other History of Present illness Narrative* Patient [...] no other testing or intervention appears necessary. [facility] 600 DO Work Phone: Hospital course Narrative No data available for this section [facility] No data available for this section [facility] HospitalReason for referral (narrative)* Reason Dr. Castillo in [facility] [place] t Please send last 2 progress notes, Thyroid labs, US of thryoid and ENT progress notes with referral Diagnosis 1 Tiffani's disease (E06.3) Referral Organization [facility] Referring Provider First Name [place] Referring Provider Last Name [facility] Referring Provider Specialty Nurse Pract sujathaioneheladio Referred Provider Specialty Endocrinolog y Referral Priority Routine [facility] Agent Ace Other Reason for referral (narrative)* Diagnostic Procedure Only (Routine) - Pending Review Specialty Diagnoses / Procedures Referred By Clint t Referred To Contact XR IMAGING Diagnoses Dysphagia, unspecified type Procedures XR MODIFIED BARIUM SWALLOW W SPEECH THERAPY RADIOLOGIC EXAM SWALLOW FUNCTION CONTRAST STUDY Francy Gan PA-C [address] [place] [address] [place] [address] Referral ID Status Reason Start Date Expiration Date Visits Requested Visits Authorized [id number] Pending Review Auto-Generat ed Referral 3 07/07/2024 1 1 [facility] Chief Complaint TAWNYA HERRING is being seen [...] in adult Chief Complaint N97.9 1 month N97.0 pillars Reason for Visit Class 2 obesity with body mass index (BMI) of 37.0 to 37.9 in adult Reason for Referral Reason ENT- [facility]- thyromegal y/abnormal US/dysphagia Diagnosis 1 Dysphagia, unspecifi ed type (R13.10) [facility] Referring Provider First Name Darwin Referring Provider Last Name [facility] Referring Provider Specialty Nurse Pract itioner Referred Organization [facility] Referred Address [address] [place] [phone] Referred Provider Specialty Ear, Nose an d Throat Referral Priority Routine Reason ABNORMAL US OF THYRO ID Newly discovered [facility] Diagnosis 1 Thyromegaly (E01.0) Referral Organization [facility] [place] Referring Provider First Name Darwin Referring Provider Last Name [facility] Referring Provider Specialty Nurse Pract itioner Referred Provider Specialty Ear, Nose an d Throat Referral Priority Routine Additional Source Comments INFORMATION SOURCE (unrecogn ized section and content) DATE CREATED AUTHOR 09/04/2021 [employer] DATE CREATED AUTHOR AUTHOR'S ORGANIZ ATION 12/18/2022 [facility] DATE CREATED AUTHOR AUTHOR'S ORGANIZ ATION 11/22/2023 [facility] DATE CREATED AUTHOR AUTHOR'S ORGANIZ ATION 03/20/2024 [facility] DATE CREATED AUTHOR AUTHOR'S ORGANIZ ATION 03/26/2024 [facility] DATE CREATED AUTHOR AUTHOR'S ORGANIZ ATION 04/08/2024 [facility] DATE CREATED AUTHOR AUTHOR'S ORGANIZ ATION 04/09/2024 [facility] Care Teams (unrecognized sec tion and [...] [address] Attending Provider Active Start: [facility] 2023 End: November 01, 2023 Team Status: Inactive Member Role Status Dates Darwin Jones APRN Primary Care Pr ovider, Attending Provider Active Start: November 25, 2023 End: November 25, 2023 Team Status: Inactive Member Role Status Dates Darwin Jones APRN Primary Care Provider Active Start: November 30, 2023 End: November 30, [address] Attending Provider Active Start: [facility] 2023 End: November 30, 2023 Team Status: [...] Primary Care Provider Active Addi Ortega DO [facility] Attending Provider Active Team Status: Active Member Role Status Dates PHYSICIAN NO FAMILY Primary Care Provider Active Team Status: Inactive Member Role Status Dates Darwin Jones APRN Primary Care Provider, Attend ing Provider Active Team Status: Inactive Member Role Status Dates Darwin Jones APRN Primary Care Provider Active Saad Valera DO Attending Provider Active Child Protective Services Social Worker Relationship Specialty Start Date End Date Darwin Jones, CARD SETTER [phone] [address] Referring Family Medicine 04/22/22 Child Protective Services Social Worker Relationship Specialty Start Date End Date Darwin Jones, CARD SETTER [address] [address] Referring Family Medicine 04/22/22 Team Status: Inactive Member Role Status Dates Darwin Jones APRN Primary Care Provider Active Jeovanny Quiros DO Emergency Provider Active Child Protective Services Social Worker Relationship Specialty Start Date End Date Darwin Jones, CARD SETTER [address] [address] Referring Family Medicine 04/22/22 Child Protective Services Social Worker Relationship Specialty Start Date End Date Darwin Jones, CARD SETTER [address] [address] Referring Family Medicine 04/22/22 Team Status: Inactive Member Role Status Dates Darwin Jones APRN Attending Provider Active Start: July 23, 2023 End: July 23, 2023 Team Status: Inactive Member Role Status Dates Darwin Jones APRN Attending Provider Active Start: August 25, 2023 End: August 25, 2023 Child Protective Services Social Worker Relationship Specialty Start Date End Date Darwin Jones, CARD SETTER [address] [place] [id number] Referring Family Medicine 04/22/22 Team Status: Inactive Member Role Status Dates Darwin Jones APRN Primary Care Pr ovider, Attending Provider Active Start: December 24, 2023 End: December 24, 2023 Team Status: Inactive Member Role Status Dates Darwin Jones APRN Primary Care Provider Active Start: December 27, 2023 End: December 27, [address] Attending Provider Active Start: 2023 End: December 27, 2023 Team Status: Inactive Member Role Status Dates Darwin Jones APRN Primary Care Provider Active Start: January 24, 2024 End: January 24, [address] Attending Provider Active Start: 2023 End: January 24, 2024 Team Status: Inactive Member Role Status Dates Darwin Jones APRN Primary Care Pr ovidanisa, Attending Provider Active Start: January 25, 2024 End: January 25, 2024 Team Status: Inactive Member Role Status Dates Darwin Jones APRN Primary Care Provider Active Start: November 30, 2023 End: November 30, [address] DO Attending Provider Active Start : November 30, 2023 End: November 30, 2023 Team Status: Inactive Member Role Status Dates Darwin Jones APRN Primary Care Provider Active Start: December 27, 2023 End: December 27, [address] DO Attending Provider Active Start : December 27, 2023 End: December 27, 2023 Team Status: Inactive Member Role Status Dates Darwin Jones APRN Primary Care Provider Active Start: January 24, 2024 End: January 24, [address] DO Attending Provider Active Start : January 24, 2024 End: January 24, 2024 Team Status: Inactive Member Role Status Dates Darwin Jones APRN Primary Care Provider Active Start: February 24, 2024 End: February 24, [address] , DO Attending Provider Active Start : February 24, 2024 End: February 24, 2024 Team Status: Inactive Member Role Status Dates Darwin Jones APRN Primary Care Provider Active Start: April 06, 2024 End: April 06, 2024 Addi Ortega - [facility] Attending Provider Active Start: April 06, 2024 End: April 06, 2024 Goals (unrecognized section and content) Goals [...] may be documented in an alternate section REASON FOR VISIT (unrecogniz ed section and content) Reason Comments Appointment [facility] for patient that appt on 05/[address] George has been rescheduled to 07/[address] [facility] with Dr. Robertson. sending mail reminder as [...] or prosecute any alcohol or drug abuse patient.[facility] Center[facility] the event this information is protected by the Federal Confidentiality of Alcohol and Drug Abuse Patient Records regulations: The Federal rules restrict any use of the information to criminally investigate or prosecute any alcohol or drug abuse patient.[facility] Center[facility] the event this information is protected by the Federal Confidentiality of Alcohol and Drug Abuse Patient Records regulations: The Federal rules restrict any use of the information to criminally investigate or prosecute any alcohol or drug abuse patient.[facility] the event this information is protected by the Federal Confidentiality of Alcohol and Drug Abuse Patient Records regulations: The Federal rules restrict any use of the information to criminally investigate or prosecute any alcohol or drug abuse patient.[facility] CenterIn the event this information is protected by the Federal Confidentiality of Alcohol and Drug Abuse Patient Records regulations: The Federal rules restrict any use of the information to criminally investigate or prosecute any alcohol or drug abuse patient.[facility] CenterIn the event this information is protected by the Federal Confidentiality of Alcohol and Drug Abuse Patient Records regulations: The Federal rules restrict any use of the information to criminally investigate or prosecute any alcohol or drug abuse patient.[facility] FOR RECORDS PERTAINING TO PATIENTS WHO ARE [...] BE BASED ON THE PRIMARY CLINICAL RECORDS. [facility] [employer] [facility]. provides no warranty or guarantee of the accuracy or completeness of information in this document.
[2024-04-25 15:09] LABS: Age Gdln ACOG Testing Note (.); IGP, rfx Aptima HPV ASCU Note (.)
== END 2024-04-20 19:28 | disposition home or self-care (01) ==
LOC: LAB 19:27
PROVIDERS: Visit Provider Obstetrics & Gynecology
DX: Z01.419 Encounter for gynecological examination (general) (routine) without abnormal findings (principal)
CPT/HCPCS: 88175

== ENCOUNTER 2024-08-25 07:39 | Outpatient (RCR) | payer OTHER, SELFPAY ==
[2024-08-25 10:08] VITALS: BP 123/80; PULSE 106; TEMP 37; O2SAT 96
[2024-08-25 13:25] VITALS: BP 123/8; PULSE 106; TEMP 37; O2SAT 96
[2024-08-25] MEDS: RHO(D) IMMUNE GLOBULIN 1,500 UNIT SYRINGE 1500 UNIT IM (13:33)
== END 2024-08-29 13:35 | disposition home or self-care (01) ==
LOC: INF 07:39
PROVIDERS: Visit Provider Obstetrics & Gynecology
DX: O26.893 Other specified pregnancy related conditions, third trimester (principal); Z67.91 Unspecified blood type, Rh negative; Z3A.29 29 weeks gestation of pregnancy
CPT/HCPCS: 36415; 82950; 85025; 86850; 86900; 86901; 96372; J2791

== ENCOUNTER 2024-08-25 09:48 | Outpatient (OUT) | payer OTHER, SELFPAY ==
[2024-08-25 12:02] LABS: Basophils Percent Auto 0.2 % (0.2-2.0); Eosinophils Absolute Auto 0.1 10^3/uL (0.0-0.7); Eosinophils Percent Auto 0.8 % (0.9-7.0); Hematocrit 33.9 % (36.0-48.0); Hemoglobin 11.6 g/dL (12.0-16.0); Immature Granulocytes Abs Auto 0.03 10^3/uL (0.00-0.03); Immature Granulocytes Pct Auto 0.3 % (0.0-0.5); Lymphocytes Absolute Auto 1.8 10^3/uL (1.2-3.8); Lymphocytes Percent Auto 19.8 % (20.5-60.0); Mean Corpuscular HGB Conc 34.2 g/dL (29.9-35.2); Mean Corpuscular Hemoglobin 32.9 pg (26.7-34.0); Mean Platelet Volume 10.2 fL (9.5-13.5); Monocytes Absolute Auto 0.5 10^3/uL (0.3-0.8); Monocytes Percent Auto 5.4 % (1.7-12.0); Neutrophils Absolute Auto 6.6 10^3/uL (1.4-6.5); Neutrophils Percent Auto 73.5 % (43.0-75.0); Platelet Count 287 10^3/uL (150-450); Red Blood Count 3.53 10^6/uL (4.20-5.40); Red Cell Distribution Width 12.1 % (11.0-15.0)
[2024-08-25 12:24] LABS: Glucose 1 Hour 131 mg/dL (<130)
== END 2024-08-25 09:49 | disposition home or self-care (01) ==
LOC: LAB 09:50
PROVIDERS: PCP Nurse Practitioner Family; Visit Provider Obstetrics & Gynecology
DX: Z34.92 Encounter for supervision of normal pregnancy, unspecified, second trimester (principal)
CPT/HCPCS: 36415; 82950; 85025

== ENCOUNTER 2024-09-11 09:54 | Outpatient (OUT) | payer OTHER, SELFPAY ==
--- NOTE | 2024-09-11 09:56 | US_ITS ---
The [address] [address] Patient Name: BARBY HERRING MRN: [id number] date: 1995 Sex: F Assigned Patient Location: Current Patient Location: [place] Accession/Order Number: [id number] Exam Date: 09/11/2024 10:00 Report Date: 09/11/2024 11:08 At the request of: HODAN GREGG Procedure: US OB growth EXAMINATION: US OB growth HISTORY: Size Inconsistent With Dates COMPARISON: No relevant comparison available. FINDINGS: Heart Rate: 151.69 bpm Amniotic Fluid Volume: 22.6 cm (95th percentile is 23.8 cm) Number: 1 Position: CEPHALIC BIOMETRY: BPD: 8.52 cm; 34 weeks 2 days; 96.60 % HC: 32.04 cm; 36 weeks 1 day; >97 % AC: 30.78 cm; 34 weeks 5 days; >97 % FL: 6.16 cm; 32 weeks 0 days; 43.40 % EFW: 2343.54 g; 96.90 % FL/AC: 20.02 FL/BPD: 72.31 HC/AC: 1.04 GESTATIONAL AGE: Age by EDC: 31 weeks 5 days YASMIN by EDC: 2024-11-08 Age by US: 34 weeks 2 days YASMIN by US: 2024-10-21 US/US OB growth IMPRESSION: 1. Single live intrauterine with growth detailed above. 2. Amniotic fluid volume approaches the upper limits of normal. 3. HC and AC are greater than 97th percentile. Estimated weight is at the 97th percentile. Electronically authenticated by: IRENE HARRINGTON Date: 09/11/2024 11:08
== END 2024-09-11 09:55 | disposition home or self-care (01) ==
LOC: US 09:54
PROVIDERS: PCP Nurse Practitioner Family; Visit Provider Physician Assistant
DX: O26.843 Uterine size-date discrepancy, third trimester (principal); Z3A.31 31 weeks gestation of pregnancy
CPT/HCPCS: 76816

== ENCOUNTER 2024-09-14 05:48 | Outpatient (OUT) | payer OTHER, SELFPAY ==
--- OUTSIDE RECORDS SUMMARY | 2024-09-14 05:53 | XMS_ITS | CCD ---
Author Organization [facility] Care Team Providers Care Switch Technician Name Role Phone Unknown, Unknown Unavailable Unavailable Unavailable Unavailable NO FAMILY, PHYSICIAN Primary Care Provider Unava ilable DO Addi Ortega Attending Provider Darwin Jones Unavailable DARWIN JONES Primary Care Physician Lilly Luke Unavailable SHIRLEY Jones Primary Care Provider SHIRLEY Jones Attending Provider [phone] DO Saad Valera Attending Provider [phone] Ofelia Hester Unavailable [facility] AMIE Darwin Unavailable Sima Ross Unavailable [facility] AMIE Darwin Unavailable [phone] SHIRLEY Jones Primary Care Provider SHIRLEY Hester Attending Provider SHIRLEY Jones Primary Care Provider SHIRLEY Hester Attending Provider [phone] Attending Provider REQUEST, DR HOBSON LISTED Primary Care Unavaila ble SEAMUS ., DR YEUNG Attending Unavailable SEAMUS ., DR YEUNG Consulting Unavailable SEAMUS ., DR YEUNG Admitting Unavailable SHIRLEY Jones Primary Care Provider [phone] DO Addi Ortega [facility]ending [facility] Provider DO Jeovanny Quiros Emergency Provider [phone] [facility] Provider DO Addi Ortega Attending Provider [phone] [facility] Provider [address] [facility]ending [facility] Provider [address] Attending Provider RUBY WHITTINGTON Attending Unavailable FRANCY GAN Attending Unavailable [facility] SHIRLEY Anaya Primary Care Provider Brain [address] Attending Provider [facility] Care Provider DO Brain [address] Attending Provider [place] Attending Unavailable Gabriel Curtis Attending Unavailable Tyrone Rock Attending Unavailable [facility] Care Provider DO Brain [address] Attending Provider [phone] [facility] DO Addi PERES Attending Provider [facility] Provider [phone] Attending Provider [facility] Primary [facility] Provider [phone] Attending Provider Unavailable Primary Care Provider Unavailabl e No Pcp, No Pcp Primary Care Provider Unavailabl e [facility] Darwin WATSON Primary Care Provider [facility] Addi SELLERS Attending Provider Seamus DO, Brain Attending Provider SEAMUS, BRAIN R Referring Unavailable NO PCP, NO PCP Primary Care Unavailable ISHA REILLYOLINA P Attending Unavailable NO PCP, NO PCP Primary Care Unavailable MANOJVA, NIKOLINA P Referring Unavailable DARCY ENRIQUEZ Attending Unavailable SEAMUS, BRAIN R Referring Unavailable NO PCP, NO PCP Primary Care Unavailable [facility] Darwin WATSON Primary Care Provider [address] DOy Attending Provider Mary Ellen Bruce MD Attending Provider [phone] Seamus, Brain Admitting Unavailable [facility], Darwin J Primary Care Unavailable Seamus, Brain Attending Unavailable Seamus, Brain Admitting Unavailable [facility], Darwin J Primary Care Unavailable Seamus, Brain Attending Unavailable [facility], Addi P Admitting Unavailable [facility] - [facility], Addi P Attending Unavailable [facility], Darwin J Primary Care Unavailable [facility], Darwin Primary Care Unavailable Seamus, Brain Attending Unavailable Seamus, Brain Admitting [facility]available [facility] Primary Care Unavailable Seamus, Brain Attending Unavailable Seamus, Brain Admitting Unavailable [facility] Darwin J Primary Care Unavailable Seamus, Brain Attending Unavailable Seamus, Brain Admitting Unavailable [facility], Darwin J Primary Care Unavailable Seamus, Brain Attending Unavailable Seamus, Brain Admitting Unavailable Seamus, Brain Attending Unavailable [facility], Darwin J Primary Care Unavailable Seamus, Brain Admitting Unavailable Seamus, Brain Attending Unavailable [facility], Darwin J Primary Care Unavailable Seamus, Brain Admitting Unavailable Seamus, Brain Attending Unavailable [facility], Darwin J Primary Care Unavailable Seamus, Brain Admitting Unavailable Mary Ellen Bruce Admitting Unavailable Mary Ellen Bruce Attending Unavailable [facility], Darwin J Primary Care Unavailable Seamus, Brain Admitting Unavailable [facility] Darwin J Primary Care Unavailable Seamus, Brain Attending Unavailable DO Gabriel Curtis Attending Unavailable [place] Attending Unavailable Rogelio Nath Attending Unavailable Rogelio Nath Admitting Unavailable Rogelio Nath Attending Unavailable Rogelio Nath Admitting Unavailable MYA FINCH Attending Unavailable BRAIN WAY Attending Unavailable BRAIN WAY Attending Unavailable BRAIN WAY Attending Unavailable BRAIN WAY Attending Unavailable BRAIN WAY Attending Unavailable Flash Franco Attending Unavailable Allergies Allergy Classification Reported Allergen(s) Allergy Type Date of Onset Reaction(s) Facility (6 sources) No Known Medication Allergies; Translations: [No Known Medication Allergies] Propensity to adverse reactions (disorder) [facility] Repository Medications Current Medications Medication Drug [...] tablet (2 sources) Opioid Agonist Start: 06-03-2021 [place] 325 mg-5 mg oral tablet 2 tab(s), [...] day(s), # 20 tab(s), Refills(s) 0, Pharmacy: [facility], 170.2, cm, 09/29/23 10:44:00 EST, Height/Length Dosing, 112, kg, 09/29/23 10:44:00 EST, Weight Dosing Start Date: 09/29/23 Stop Date: 10/09/23 Status: Ordered aspirin 81 mg delayed release oral tablet (20 sources) Platelet Aggregation Inhibitor, Nonsteroidal Anti-inflammatory Drug Start: 09-05-2024 aspirin 81 mg Oral EC Tab See Instructions, 1 tab(s) Oral, Refills(s) 0 Start Date: 09/05/24 Status: Ordered Start: 05-11-2024 take 1 tablet by delphine once daily Aspirin 81 mg tablet,delayed release (DR/EC) Active 81 MG PO Daily May 10, 2024 11:00pm Start: 06-23-2021 take 1 mg by mouth e very four hours aspirin 81 mg oral capsule mg cap(s), Oral, q4hr, Refills(s) 0 Start Date: 06/23/21 Status: Ordered take 81 mg by mouth once daily A SPIRIN 81 PO Take 81 mg by mouth Daily Active azithromycin 250 mg oral tablet (3 sources) Macrolide Antimicrobial Start: 08-01-2024 End: 08-23-2024 azithromycin (Zithromax Z-Bang) 250 MG tablet Indications: Other sinusitis, unspecified chronicity As directed 6 tablet 08/01/2024 08/23/2024 Discontinued cephalexin 500 mg oral capsule (20 sources) Cephalosporin Antibacterial Start: 03-22-2023 End: 03-29-2023 take 1 capsule by mouth every six hours Keflex 500 mg Cap 500 mg = 1 cap(s), Oral, q6hr, X 7 day(s), # 28 cap(s), Refills(s) 0, Pharmacy: [facility], 170.2, cm, 03/22/23 20:14:00 EDT, Height/Length Dosing, 113.5, kg, 03/22/23 20:14:00 EDT, Weight Dosing Start Date: 03/22/23 Stop Date: 03/29/23 Status: Ordered Start: 07-03-2021 take 1 capsule by mo [facility] twice daily Keflex 500 mg Cap 500 mg = 1 cap(s), Oral, BID, # 10 cap(s), Refills(s) 0, Pharmacy: [facility], 170, cm, 06/27/21 10:56:00 EST, Height/Length Dosing, 104, kg, 06/23/21 8:09:00 EST, Weight Dosing Start Date: 07/03/21 Status: Ordered Start: 12-29-2020 End: 10-07-2023 take 1 capsule by mouth every eight hours Cephalexin 500 mg capsule Discontinued 500 MG PO Q8H 05 03December 28, 2020 11:00pm October 07, 2023 6:06pm cholecalciferol 1000 unt extended release oral capsule (18 sources) Vitamin D Start: 08-25-2024 take 1000 [IU] by mouth once daily cholecalciferol (vitamin D3) Active 1000 UNIT PO Daily August 25, 2024 12:09pm Start: 10-07-2023 Cholecalcifero l, Vitamin D3, 50 mcg (2,000 unit) cap cholecalciferol (vitamin D3) Active PO October 07, 2023 1:00am 0 10/07/2023 Active Start: 10-07-2023 End: 08-25-2024 cholecalciferol (vitamin D3) Discontinued PO October 07, 2023 12:00am August 25, 2024 12:11pm Start: 10-07-2023 cholecalcifero l (vitamin D3) Active PO October 07, 2023 12:00am Start: 10-07-2023 cholecalcifero l (vitamin D3) Active PO October 07, 2023 1:00am Comment on above: cholecalciferol (vit galaviz D3) Active PO October 07, 2023 1:00am diphenhydrAMINE hydrochloride 25 mg oral capsule (1 source) Histamine-1 Receptor Antagonist Start: 2021 End: 2021 take 1 capsule by mouth three times daily as needed for headache diphenhydrAMINE 25 mg Cap 25 mg = 1 cap(s), Oral, TID, PRN Headache, Take medication with the Reglan for treatment of migraine headache, X 3 day(s), # 15 cap(s), Refills(s) 0 Start Date: 02/18/22 Stop Date: 02/21/22 Status: Ordered levothyroxine sodium 0.05 mg oral tablet (20 sources) l-Thyroxine Start: 2024 take 2 tablets by mouth once daily Synthroid 50 mcg Tab See Instructions, Oral 2 tab (100mcg) daily, Refills(s) 0 Start Date: 09/05/24 Status: Ordered Start: 08-25-2024 take 1 capsule by mo [facility] once daily Levothyroxine 100 mcg capsule Active 100 MCG PO Daily August 25, 2024 12:00am Start: 06-29-2024 End: 09-27-2024 take 1 tablet by mouth once daily levothyroxine (Synthroid, Levoxyl) 100 MCG tablet Indications: Abnormal TSH Take 1 tablet (100 mcg) by mouth Daily 30 tablet 2 06/29/2024 09/27/2024 Active Start: 10-07-2023 End: 11-17-2024 take 1 tablet by mouth once daily Levothyroxine 75 mcg tablet Discontinued 75 MCG PO Daily October 07, 2023 12:00am August 25, 2024 12:09pm Start: 04-17-2022 End: 09-28-2022 take 1 tablet by mouth once daily in the morning Levothyroxine Sodium 75 MCG 1 tablet in the morning on an empty stomach Orally Once a day for 30 day(s) Apr, Active Start: 04-17-2022 take 1 tablet by delphine once daily in the morning Levothyroxine Sodium 75 MCG 1 tablet in the morning on an empty stomach Orally Once a day for 30 day(s) Apr, Active Start: 02-18-2022 take 1 tablet by delphine once daily in the morning Levothyroxine Sodium 50 MCG 1 tablet in the morning on an empty stomach Orally Once a day for 30 day(s) Feb, Active Comment on above: Take 75 mcg by mouth once daily. Take 1 tablet by delphine th once daily. Magnesium Aspart,Citrate,Oxide 400 mg magnesium capsule (2 sources) Start : 08-25 take 1 capsule by mouth once daily Magnesium Aspart,Citrate,Oxide 400 mg magnesium capsule Active 400 MG PO Daily August 25, 2024 12:00am magnesium oxide 400 mg oral tablet (18 sources) Start : 05-24 End: 05-24 take 1 tablet by mouth once daily magnesium oxide (Mag-Ox) 400 MG tablet Indications: headache in second trimester Take 1 tablet (400 mg) by mouth Daily 30 tablet 6 05/24/2024 05/24/2025 Active medroxyPROGESTERone acetate 10 mg oral tablet (1 source) Progestin Start : 08-25 End: 04-07 take 1 tablet by mouth in the morning medroxyPROGESTERone (Provera) 10 MG tablet Indications: Menstrual bleeding problem Take 1 tablet (10 mg) by mouth in the morning. Take 1 tablet by mouth daily for 7 days beginning on day 16 of the menstrual cycle.. 14 tablet 3 08/25/2023 04/07/2024 Discontinued methylPREDNISolone 4 mg oral tablet (2 sources) Corticosteroid Start : 09-29 End: 10-05 Medrol Dosepack 4 mg Tab = 1 packet(s), Oral, As Directed, as directed on package labeling, X 6 day(s), # 21 tab(s), Refills(s) 0, Pharmacy: [facility], 170.2, cm, 09/29/23 10:44:00 EST, Height/Length [...] Ordered omeprazole 20 mg delayed release oral capsule (13 sources) Proton Pump Inhibitor Start: 08-23-2024 End: 09-22-2024 take 1 capsule by mouth before mealtime omeprazole (PriLOSEC) [address] capsule Indications: Gastroesophageal Reflux Disease , Heartburn Take 1 capsule (20 mg) by mouth in the morning. Take before meals. Do not crush or chew.. 30 capsule 3 08/23/2024 09/22/2024 Active Start: 04-28-2023 take 1 tablet by delphine once daily Omeprazole Magnesium 20 MG 1 tablet 30 minutes before morning meal Orally Once a day for 30 days Apr, Active take 1 capsule by mo [facility] once daily omeprazole (PRILOSEC) 20 mg capsule Take 20 mg by mouth once daily. 0 Active Comment on above: Take 20 mg by mouth once daily. ondansetron 4 mg disintegrating oral tablet (13 sources) Serotonin-3 Receptor Antagonist Start: 03-27-20 End: 04-26-20 take 1 tablet by mouth every six hours for nausea ondansetron ODT (Zofran-ODT) 4 MG disintegrating tablet Indications: Nausea and vomiting in Take 1 tablet (4 mg) by mouth every 6 (six) hours if needed for nausea or vomiting 30 tablet 3 03/27/2024 04/26/2024 Active Start: 02-18-2022 take 1 tablet by delphine every twelve hours Ondansetron HCl 4 MG [...] Date: 02/18/22 Stop Date: 02/21/22 Status: Ordered [id number] Fumarate-Fa () 28-800 mg-mcg Tablet (20 sources) Start: 12-29-2020 [id number]-Yehtuit Fumarate-Fa () 28-800 mg-mcg Tablet Active TAB PO December 29, 2020 3:43pm Start: 12-29-2020 End: 10-07-2023 Nya844-Myrpeak Fumarate-Fa ( ) 28-800 mg-mcg Tablet Discontinued TAB PO December 28, 2020 11:00pm October 07, 2023 6:06pm Start: 12-29-2020 End: 10-07-2023 [id number]-Bfympyb Fumarate-Fa ( ) 28-800 mg-mcg Tablet Discontinued TAB PO December 29, 2020 12:00am October 07, 2023 7:06pm Start: 12-29-2020 Oct131-Lseptat Fumarate-Fa () 28-800 mg-mcg Tablet Active TAB PO December 28, 2020 11:00pm Start: 12-29-2020 Zdy098-Nrglzgx Fumarate-Fa () 28-800 mg-mcg Tablet Active TAB PO December 29, 2020 12:00am [id number]-egph fum-folic ac-o m3 (One Daily ) (8 sources) Start: 08-25-2024 -hsgb fum-folic ac-om3 (One Daily ) Active 1 PKG PO Daily August 25, 2024 12:10pm Start: 05-11-2024 End: 08-25-2024 [id number]-sfkg fum-folic ac-o m3 (One Daily ) Discontinued PO May 10, 2024 11:00pm August 25, 2024 12:11pm Start: 05-11-2024 -syek fum-folic ac-om3 (One Daily ) Active PO May 10, 2024 11:00pm Start: 05-11-2024 -quiq fum-folic ac-om3 (One Daily ) Active PO May 11, 2024 12:00am MV-Min-Fe Fum-FA-DHA ( 1 PO) (20 sources) MV-Min- Fe Fum-FA-DHA ( 1 PO) Take 1 each by mouth Daily Active [id number] acid ( 19) 29 mg iron- 1 mg tablet,chewable (2 sources) [id number] acid ( 19) 29 mg iron- 1 mg tablet,chewable Chew 1 tablet and swallow in the morning. Active promethazine hydrochloride 12.5 mg oral tablet (20 sources) Phenothiazine Start: 07-11-2024 End: 10-09-2024 take 1 tablet by mouth every six hours as needed for nausea and nausea, then take 1 tablet by mouth every six hours as needed for nausea and nausea promethazine (Phenergan) 12.5 MG tablet Indications: Nausea and vomiting during Take 1 tablet (12.5 mg) by mouth every 6 (six) hours if needed for nausea or vomiting Take 1 tablet by mouth every 6 hours as needed for nausea. 30 tablet 3 07/11/2024 10/09/2024 Active Start: 12-29-2020 End: 10-07-2023 Promethazine 12.5 mg tablet Discontinued TABLET December 28, 2020 11:00pm October 07, 2023 6:06pm SUMAtriptan 50 mg oral tablet (4 sources) [...] Drug Class(es) Dates Sig (Normalized) Sig (Original) citalopram 20 mg oral tablet (20 sources) Serotonin Reuptake Inhibitor Start: 12-29-2020 End: 10-07-2023 Citalopram Discontinued MG TABLET December 29, 2020 12:00am October 07, 2023 7:06pm Start: 10-15-2019 End: 10-07-2023 take 1 tablet by mouth once daily CeleXA 20 mg Tab 20 mg = 1 tab(s), Oral, Daily, Refills(s) 0 Start Date: 03/12/20 Status: Ordered Comment on above: Take 20 [...] source) Vitamin B12 cyanocobalamin/f olic acid (VITAMIN L16-[id number] ACID) 1,000-400 mcg lozg Take by mouth every 24 hours. 0 Active Comment on above: Take by mouth every 24 hours. 3 ml liraglutide 6 mg/ml pen injector (5 sources) GLP-1 Receptor Agonist Start: 05-20-2022 Victoza 18 MG/3ML Week one- 0.6mg, Week two- 1.2mg, Week three on- 1.8mg Subcutaneous Daily for 30 days May, Not-Taking mecobalamin 1 mg chewable tablet (16 sources) Start: 10-07-2023 mecobalamin, vitamin B12, 1,000 mcg chew mecobalamin (vitamin B12) Active PO October 07, 2023 1:00am 0 10/07/2023 Active Start: 10-07-2023 End: 08-25-2024 mecobalamin (vitamin B12) Di scontinued PO October 07, 2023 12:00am August 25, 2024 12:10pm Start: 10-07-2023 mecobalamin (v itamin B12) Active PO October 07, 2023 12:00am Start: 10-07-2023 mecobalamin (v itamin B12) Active [...] Amine Anorectic Start: 2023 End: 2023 take 1 tablet by mouth once daily Phentermine 37.5 mg tablet Discontinued 37.5 MG PO Daily November 25, 2023 8:21am December 24, 2023 9:23am BMI 37.7, ok to refill at day 35 due to provider out of office Start: 09-21-2023 take 1 tablet by delphine once daily before breakfast Phentermine HCl 37.5 MG 1 tablet before breakfast Orally Once a day for 30 days Sep, Active Start: 08-25-2023 take 1 tablet by delphine once daily before breakfast Phentermine HCl 37.5 MG 1 tablet before breakfast Orally Once a day for 30 days Aug, Active Start: 06-23-2023 take 1 tablet by delphine once daily before breakfast Phentermine HCl 37.5 MG 1 tablet before breakfast Orally Once a day for 30 days Jun, Active Start: 05-26-2023 take 1 capsule by mo [facility] every twenty-four hours Phentermine HCl 37.5 MG 1 capsule Orally Once a day for 30 days May, Active Comment on above: Take 37.5 mg by mosc h. Vitamin (14 sources) Vitamin OTC Not-Taking [...] [Female infertility, unspecified] Onset: 4 11-18-2023 Chronic Fluid and electrolyte disorders (1 source) Dehydration; Translations: [Dehydration] Onset: 5 Episodic Headache; including migraine (5 sources) Migraine; Translations: [Migraine, unspecified, not intractable, without status migrainosus] Onset: 1 07-14-2022 Chronic Headache; including migraine (2 sources) Headache; Translations: [Headache, unspecified] Onset: 2 Episodic Hemorrhage during ; abruptio placenta; placenta previa (2 sources) Antepartum hemorrhage; Translations: [Other antepartum hemorrhage, unspecified trimester] Onset: 4 Episodic Menstrual disorders (4 sources) Irregular periods; Translations: [Irregular menstruation, unspecified] Onset: 4 11-18-2023 Chronic Mood disorders (20 sources) Mild depression; Translations: [Major depressive disorder, single episode, unspecified] Chronic Nausea and vomiting (2 sources) Nausea with vomiting, unspecified; Translations: [Nausea and vomiting] Onset: 5 Episodic Nonspecific chest pain (2 sources) Atypical chest pain; Translations: [Other chest pain] Episodic Other aftercare (1 source) Encounter for follow-up examination after completed treatment for conditions other than malignant neoplasm Episodic Other and ill-defined heart disease (4 sources) Cardiomegaly; Translations: [Cardiomegaly] Onset: 5 07-31-2024 Chronic Other and unspecified benign neoplasm (20 sources) Parathyroid adenoma; 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] Onset: 4 10-07-2023 Episodic Other circulatory disease (6 sources) History of pericarditis; Translations: [Personal history of other diseases of the circulatory system] Onset: 4 2024 Episodic Other circulatory disease (1 source) Elevated blood-pressure reading without diagnosis of hypertension; Translations: [Elevated blood-pressure reading, without diagnosis of hypertension] 2024 Episodic Other circulatory disease (1 source) Personal history of other diseases of the circulatory system; Translations: [Personal history of other diseases of the circulatory system] Onset: 4 Episodic Other complications of ; puerperium affecting management of mother (18 sources) cardiomyopathy; 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 EHR Cmte Other complications of (20 sources) Urinary tract infection in ; Translations: [Unspecified infection of urinary tract in , unspecified trimester] 12-29-2020 Episodic Comment on above: Problem List clean-u p per request of Phys. EHR Cmte Other complications of (3 sources) Hypothyroidism in ; Translations: [Endocrine, nutritional and metabolic diseases complicating , second trimester] Onset: 4 2024 Episodic Other complications of (3 sources) History of pre-eclampsia; Translations: [Supervision of with other poor reproductive or obstetric history, unspecified trimester] Onset: 4 2024 Episodic Other complications of (1 source) History of delivery of macrosomal ; Translations: [Supervision of with other poor reproductive or obstetric history, unspecified trimester] 2024 Episodic Other complications of (1 source) 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 ; Translations: [Other mental disorders complicating , unspecified trimester] 2024 Episodic Other complications of (12 sources) Vomiting of , unspecified; Translations: [Unspecified vomiting of , unspecified as to episode of care or not applicable] Onset: 4 07-11-2024 Episodic Other complications of (2 sources) Gastroesophageal reflux disease in ; Translations: [Diseases of the digestive system complicating , unspecified trimester] 08-23-2024 Episodic Other complications of (2 sources) size does not accord with dates; Translations: [Uterine size-date discrepancy, unspecified trimester] 09-07-2024 Episodic Other gastrointestinal disorders (20 sources) Pharyngeal dysphagia; Translations: [Dysphagia, pharyngeal phase] Episodic Other gastrointestinal disorders (20 sources) Dysphagia; Translations: [Dysphagia, pharyngoesophageal phase] 06-08-2023 Episodic Other gastrointestinal disorders (1 source) Dysphagia, pharyngoesophageal phase Episodic Other gastrointestinal disorders (1 source) Dysphagia, unspecified Episodic Other gastrointestinal disorders (1 source) Diarrhea; Translations: [Diarrhea, unspecified] Onset: Episodic Other nutritional; endocrine; and metabolic disorders [...] Chronic Other nutritional; endocrine; and metabolic disorders (14 sources) Drug-induced obesity; 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] 11-25-2023 Chronic Other nutritional; endocrine; and metabolic disorders (20 sources) Weight gain; Translations: [Abnormal weight gain] 03-12-2020 Episodic Other nutritional; endocrine; and metabolic disorders (1 source) Abnormal weight gain Episodic Other nutritional; endocrine; and metabolic disorders (5 sources) Weight increased; Translations: [Abnormal weight gain] 10-07-2023 Episodic Other and delivery including normal (20 sources) Second trimester ; Translations: [Encounter for supervision of normal , unspecified, second trimester] Onset: 4 06-12-2024 Episodic Other screening for suspected conditions (not mental disorders or infectious disease) (11 sources) Encounter for screening for malignant neoplasm of cervix; Translations: [Patient encounter status] Onset: 3 Episodic Other upper respiratory infections (1 source) Chronic sinusitis; Translations: [Chronic sinusitis, unspecified] Onset: 4 Chronic Other upper respiratory infections (1 source) Acute pharyngitis, unspecified Episodic Previous (3 sources) ; Translations: [Maternal care for unspecified type scar from previous delivery] Onset: 4 2024 Episodic Residual codes; unclassified (2 sources) Gestation period, 18 weeks; Translations: [18 weeks gestation of ] 06-12-2024 Episodic Residual codes; unclassified (2 sources) Gestation period, 20 weeks; Translations: [20 weeks gestation of ] 2024 Episodic Residual codes; unclassified (12 sources) Gestation period, 22 weeks; Translations: [22 weeks gestation of ] Onset: 4 07-11-2024 Episodic Residual codes; unclassified (2 sources) Gestation period, 25 weeks; Translations: [25 weeks gestation of ] 07-31-2024 Episodic Residual codes; unclassified (1 source) 20 weeks gestation of ; Translations: [20 weeks gestation of ] Onset: 4 Episodic Residual codes; unclassified (1 source) History of uterine scar from previous surgery; Translations: [History of uterine scar from previous surgery] Onset: 4 Episodic Residual codes; unclassified (2 sources) Gestation period, 29 weeks; Translations: [29 weeks gestation of ] 08-23-2024 Episodic Residual codes; unclassified (2 sources) Gestation period, 31 weeks; Translations: [31 weeks gestation of ] 09-07-2024 Episodic Syncope (1 source) Syncope and collapse; Translations: [Syncope and collapse] Onset: 5 Episodic Thyroid disorders (20 sources) Hypothyroidism; Translations: [Hypothyroidism, unspecified] Onset: 2 Resolved: 2 Chronic Unclassified (10 sources) OB Reminders Onset: 4 06-28-2024 Unclassified (1 source) Tiffani's Thyroiditis Onset: 4 Unclassified (6 sources) Onset: 9 Resolved: 1 09-05-2024 Urinary tract infections (1 source) Urinary tract infectious disease; Translations: [Urinary tract infection, site not specified] Onset: 3 Episodic Past or Other Problems Problem Classification Problem Date Documented Da te Episodic/Chronic Immunizations and screening for infectious disease (3 sources) Encounter for screening for human papillomavirus (HPV); Translations: [Patient encounter status] Onset: 12-12-2022 04-20-2024 Episodic Other female genital disorders (2 sources) Vaginal discharge; Translations: [Other specified noninflammatory disorders of vagina] 04-20-2024 Episodic Other gastrointestinal disorders (1 source) Dysphagia, pharyngeal phase Onset: 02-18-2022 Resolved: 02-18-2022 Episodic Other nutritional; endocrine; and metabolic disorders (1 source) Personal history of other endocrine, nutritional and metabolic disease; Translations: [Personal history of other endocrine, nutritional and metabolic disease] Onset: 05-24-2024 Episodic Spondylosis; intervertebral disc disorders; other back problems (1 source) Backache; Translations: [Dorsalgia, unspecified] Onset: 03-22-2023 11-18-2023 Episodic Unclassified (2 sources) Never smoked tobacco; Translations: [Never a smoker] Unclassified (1 source) Cough R05.9 Unclassified (1 source) Mild concentric left ventricular hypertrophy (LVH) 07-31-2024 Results Test Name Value Interpretation Reference Range Facility OB GROWTH 09-11-2024 [place] [id number] Ultrasound Report Signed Patient: TAWNYA HERRING MR#: [id number] : 1995 Acct:[id number] Age/Sex: 29 / F ADM Date: 09/11/24 Loc: US Attending Dr: Mya Finch Ordering Physician: Mya Finch Date of Service: 09/11/24 Procedure(s): US OB growth Accession Number(s): [id number] cc: Mya Finch; Darwin Jones NP [address] [address] Patient Name: TAWNYA HERRING MRN: [id number] date: 1995 Sex: F Assigned Patient Location: US Current Patient Location: US Accession/Order Number: [id number] Exam Date: 09/11/2024 10:00 Report Date: 09/11/2024 11:08 At the request of: MYA FINCH Procedure: US OB growth EXAMINATION: US OB growth HISTORY: Size Inconsistent With Dates COMPARISON: No relevant comparison available. FINDINGS: Heart Rate: 151.69 bpm Amniotic Fluid Volume: 22.6 cm (95th percentile is 23.8 cm) Number: 1 Position: CEPHALIC BIOMETRY: BPD: 8.52 cm; 34 weeks 2 days; 96.60 % HC: 32.04 cm; 36 weeks 1 day; >97 % AC: 30.78 cm; 34 weeks 5 days; >97 % FL: 6.16 cm; 32 weeks 0 days; 43.40 % EFW: 2343.54 g; 96.90 % FL/AC: 20.02 FL/BPD: 72.31 HC/AC: 1.04 GESTATIONAL AGE: Age by EDC: 31 weeks 5 days YASMIN by EDC: 2024-11-08 Age by US: 34 weeks 2 days YASMIN by US: 2024-10-21 US/US OB growth IMPRESSION: 1. Single live intrauterine with growth detailed above. 2. Amniotic fluid volume approaches the upper limits of normal. 3. HC and AC are greater than 97th percentile. Estimated weight is at the 97th percentile. Electronically authenticated by: IRENE HARRINGTON Date: 09/11/2024 11:08 Dictated By: Irene Harrington M.D. Signed By: 09/11/24 1111 DD/ 1108 TD/TT: Tongue And Quarter Stitcher: [facility] Radiology, Radiologi MD diane - 09/11/2024 [place] [address] Ultrasound Report Signed Patient: TAWNYA HERRING MR#: [id number] : 1995 Acct:[id number] Age/Sex: 29 / F ADM Date: 09/11/24 Loc: US Attending Dr: Mya Finch Ordering Physician: Mya Finch Date of Service: 09/11/24 Procedure(s): US OB growth Accession Number(s): [id number] cc: Mya Finch; Darwin Jones QUALITY TECHNICIAN [employer] [facility] [place] [id number] Patient Name: TAWNYA HERRING MRN: [id number] date: 1995 Sex: F Assigned Patient Location: Current Patient Location: US Accession/Order Number: [id number] Exam Date: 09/11/2024 10:00 Report Date: 09/11/2024 11:08 At the request of: MYA FINCH Procedure: US OB growth EXAMINATION: US OB growth HISTORY: Size Inconsistent With Dates COMPARISON: No relevant comparison available. FINDINGS: Heart Rate: 151.69 bpm Amniotic Fluid Volume: 22.6 cm (95th percentile is 23.8 cm) Number: 1 Position: CEPHALIC BIOMETRY: BPD: 8.52 cm; 34 weeks 2 days; 96.60 % HC: 32.04 cm; 36 weeks 1 day; >97 % AC: 30.78 cm; 34 weeks 5 days; >97 % FL: 6.16 cm; 32 weeks 0 days; 43.40 % EFW: 2343.54 g; 96.90 % FL/AC: 20.02 FL/BPD: 72.31 HC/AC: 1.04 GESTATIONAL AGE: Age by EDC: 31 weeks 5 days YASMIN by EDC: 2024-11-08 Age by US: 34 weeks 2 days YASMIN by US: 2024-10-21 US/ OB growth IMPRESSION: 1. Single live intrauterine with growth detailed above. 2. Amniotic fluid volume approaches the upper limits of normal. 3. HC and AC are greater than 97th percentile. Estimated weight is at the 97th percentile. Electronically authenticated by: IRENE HARRINGTON Date: 09/11/2024 11:08 Dictated By: Irene Harrington M.D. Signed By: 09/11/24 1111 DD/ 1108 TD/TT: Tongue And Quarter Stitcher: [facility] Radiology Study observation (narrative) [facility] OB GROWTHOrdered By: Halima ologleighton Radiology on 09-11-2024 [facility] Work Phone: Z Urineon 09-07-2024 Bacteria identified Cx Nom (U) Microbiology PROCEDURE: Urine Culture [R1] SOURCE: U CleanCatch BODY SITE: COLLECTED DATE/TIME: 09/05/2024 05:25 EST RECEIVED DATE/TIME: 09/05/2024 10:11 EST START DATE/TIME: 09/05/2024 10:11 EST FREE TEXT SOURCE: Pham GALLAGHER, Rogelio Nath MD, Rogelio Robins FINAL REPORTS Final Report [] Verified Date/Time: 09/07/2024 10:23 EST <10,000 cfu/ml Mixed skin contaminants Performing Locations R1: This test was performed at: [facility], [address] [place] [address], [id number]- , , [facility] Comment on above: Performed By: #### 2 [id number] #### [facility] [address] [place] [address] Urinalysis macro (dipstick) panel (U)on 09-07-2024 Bilirubin, UA Negative Negative - 4(70) +++ mg/dL [facility] Blood, UA Negative Negative - 50 Dain/mcL [facility] Clarity, UA Clear [facility] Color, UA Yellow [facility] Glucose, UA Negative Negative - 1999(110) ++++ mg/dL [facility] Interpretation and review of laboratory results Normal [facility] Ketones, UA Negative Negative - 160(16) ++++ mg/dL [facility] Leukocytes, UA Negative Negative - 500+++ Chaparrita/mcL [facility] Nitrite, UA Negative Negative - Positive [facility] pH, UA 8 5 - 9 [facility] Protein, UA Negative Negative - 2000(20) ++++ mg/dL [facility] Spec Grav, UA 1.015 1 - 1.03 [facility] Urobilinogen, UA 1.0 0.2 - 12 mg/dL [facility] ED Clinical Summaryon 2024 ED Clinical Summary ED Clinical Summary [address] [address] ED Clinical Summary Person Information Name: TAWNYA HERRING [place] Age: 29 Years : 1995 Sex: Female Language: Spanish PCP: DARWIN JONES CNP Marital Status: Single Phone: [phone] Visit Id: Visit Reason: Headache; HEADACHE, FALL INJURY, 30 WKS PREG Speciality: Acuity: 4 Enc Type: Emergency Med Service: Emergency Arrival: 09/06/2024 13:57:18 Discharge: 09/06/2024 16:26:50 LOS: 000 02:29 Checkin: 09/06/2024 13:57:18 Checkout: 09/06/2024 16:26:50 Dispo Type: Home (Routine DC) EVENTS: Event Name Event Status Request Date/Time Start Date/Time Complete Date/Time Arrive Complete 09/06/2024 13:57:18 09/06/2024 13:57:18 09/06/2024 13:57:18 Document Home Meds Request 09/06/2024 13:57:18 Triage Complete 09/06/2024 13:57:18 09/06/2024 14:07:32 09/06/2024 14:07:32 Bed Assign Complete 09/06/2024 14:07:41 09/06/2024 14:07:41 09/06/2024 14:07:41 Dr Exam Complete 09/06/2024 14:07:41 09/06/2024 14:32:09 09/06/2024 14:32:09 RN Exam Complete 09/06/2024 14:07:41 09/06/2024 14:18:44 09/06/2024 14:18:44 Registration Complete 09/06/2024 14:08:09 09/06/2024 14:08:09 09/06/2024 14:08:09 Reg Complete Request 09/06/2024 14:08:09 Reg Bed Request Complete 09/06/2024 14:08:09 09/06/2024 14:08:09 09/06/2024 14:08:09 Registration Request 09/06/2024 14:32:09 Dr Exam Complete 09/06/2024 14:43:46 09/06/2024 14:43:46 09/06/2024 14:43:46 Meds Admin Complete 09/06/2024 15:26:30 09/06/2024 15:32:14 Discharge Complete 09/06/2024 16:15:01 09/06/2024 16:26:55 09/06/2024 16:26:55 Transfer Complete 09/06/2024 16:26:55 09/06/2024 16:26:55 09/06/2024 16:26:55 ADDRESS: [address] [place] [phone] PHYS DOC NOTES: MEDICAL INFORMATION: Prescriptions Given: Medications to Continue with No Changes Other Medications aspirin (aspirin 81 mg Oral EC Tab) 1 tab(s) Oral. citalopram (CeleXA 20 mg Tab) 1 Tablets By Mouth every day. levothyroxine (Synthroid 50 mcg Tab) Oral 2 tab (100mcg) daily. magnesium oxide (magnesium oxide 400 mg Tab) 1 Tablets By Mouth every day. PATIENT EDUCATION INFORMATION: Instructions: Concussion, Adult, Nbba-wz-Qtgy Follow up: With: Address: When: DARWIN [address] [place] [phone] Business (1) In 3 days 09/09/2024 Comments: Call to schedule a follow-up appointment with your primary care provider. Use Zofran as needed for nausea/vomiting. Return to the ED with any new or worsening symptoms. DIAGNOSIS: JEFFERSON (headache) Normal [facility] ED Note-Physicianon 09-06-19 ED Note-Physician ED Note-Physician Basic Information Time Seen: Nay BECKHAM, Lashon Louis 09/06/2024 14:32 Chief Complaint Pt presents to ED with complaints of headache today. Pt was seen in OB yesterday after syncopal episode-hit head on cabinet. 30 IUP. no additional symptoms/injury from fall besides JEFFERSON today History of Present Illness Patient is a 29-year-old female with a history of anxiety who presents to the ED 30 weeks with complaints of a headache. Patient states she has been experiencing nausea, vomiting, and diarrhea for the past 3 days. She notes last night while having an episode of emesis and diarrhea, she passed out from a seated position and struck the left frontal aspect of her head on a cabinet. Patient states she came to the ED last night where she was sent to the OB floor for further evaluation and fluids. Patient states last night upon being discharged home developed a generalized headache. She denies the use of any octl-yso-afrwcni medications for this. Patient denies any neck pain, back pain, abdominal pain, fevers, or vaginal bleeding. She notes she is still continuing to feel movement. She states she has had 2-3 episodes of emesis since, however this is consistent with the prior symptoms that she was experiencing before the fall. She denies the use of anticoagulants. Review of Systems A 10 point review of systems is negative except as noted above. Medical and Surgical History: Reviewed and noted Social history: Lives at home Family History: Reviewed. Tobacco: Denies Physical Exam Vitals & Measurements T: 36.6 ???C(Oral) HR: 101(Peripheral) RR: 18 BP: 122/77 SpO2: 99% HT: 170.8 cm WT: 111.4 kg BMI: 38.19 General: The patient appears well and in no apparent distress. Patient is resting comfortably on cart. Skin: Warm, dry, no pallor noted. Head: Normocephalic, atraumatic, no abrasions or hematomas observed Neck: No midline spinal tenderness to palpation Eye: PERRLA, EOMI, visual tuttle intact bilaterally ENT: Moist mucus membranes Cardiovascular: Regular rate normal peripheral perfusion Respiratory: No respiratory distress no accessory muscle use no obvious audible wheezing Musculoskeletal: normal ROM, no deformity, no swelling GI: Soft no obvious distention. No rebound or rigidity. No guarding. No tenderness. Neurological: A&O moves all extremities equal strength and symmetry, no focal neurological deficits Psychiatric: Cooperative and appropriate Procedure [X] Patient has one or more of the following conditions that are excluded from the measure (select all that apply): [] Patient has ventricular shunt [] Patient has brain tumor [X] Patient is [] Patient has multi-system trauma [] Patient taking an antiplatelet medication (excluding aspirin) [] Head CT not ordered by emergency geriatric care manager [] Head CT ordered for reasons other than trauma [] Patient is 18 or older, presenting with minor blunt head trauma. Head CT (including cosigned orders) was ordered by an emergency geriatric care manager for trauma because (select one or more):[SATISFIES MIPS PERFORMANCE]Reasons: [] Patient is 65 or older [] Patient GCS < 15 [] Patient has focal neurologic deficit [] Patient has severe headache [] Patient is vomiting [] Severe/dangerous mechanism of injury was identified(select one or more): []MVA with: patient ejection, of another passenger, rollover, speed > 40mph, airbag deployment, route delivery driver or passenger on ATV or motorcycle [] pedestrian or bicyclist without helmet: struck my motorized vehicle, in bicycle crash [] fall > 3 feet or 5 stairs [] head struck by high-impact object (hammer, baseball, baseball bat, heavy object such as falling brick) [] Other: [] (ie. assault description) [] Patient has physical signs of basilar skull fracture present (including hemotympanum, raccoon eyes, CSF leakage from ear or nose, Bell's sign) [] Patient suspected of taking anticoagulant medication [] Patient has thrombocytopenia [] Patient has coagulopathy [] Patient has loss of consciousness and (must select one of the following): []Headache []Short term memory deficit []Alcohol/drug intoxication []Evidence of trauma above the clavicles []Age 60 or older [] Post-traumatic seizure [] Patient has post-traumatic amnesia and (must select one of the following): []Headache []Short term memory deficit []Alcohol/drug intoxication []Evidence of trauma above the clavicles []Age 60 or older [] Post-traumatic seizure [] Patient is 18 or older, presenting with minor blunt head trauma. Head CT (including cosigned orders) was ordered by an emergency geriatric care manager for trauma, no indication specified.[DOES NOT SATISFY MIPS PERFORMANCE] Medical Decision Making Patient is a 29-year-old female with a history of anxiety who presents to the ED 30 weeks with complaints of a headache following a syncope episode from a seated position yesterday. Patient is hemodynamically st (more content not included)... Normal [facility] Comment on above: Result Comment: Elec tronically Signed By: Lashon Tee PA-C\.br\Date and Time Signed: 09/06/24 16:20 EST\.br\Electronically Co-Signed By: Lashon Tee PA-C\.br\Date and Time Co-Signed: 09/06/24 16:21 EST\.br\Electronically Co-Signed By: Flash Franco DO\.br\Date and Time Co-Signed: 09/06/24 19:47 EST ED Patient Summaryon 025 ED Patient Summary ED Patient Summary [place] [id number] Patient Discharge Instructions Person Information Name: TAWNYA HERRING Age: 29 Years Arrival Date: 09/06/2024 13:57:18 Discharge Diagnosis: JEFFERSON (headache) Primary Care Physician: DARWIN JONES CNP Provider Information Primary Provider: Flash Franco DO [employer] Maker:Lashon Tee PA-C The exam and treatment you received in the Emergency Department were for an urgent problem and are not intended as complete care. It is important that you follow up with a doctor, nurse practitioner, or physician???s engineer first assistant for ongoing care. If your symptoms become worse or you do not improve as expected and you are unable to reach your usual health care provider, you should return to the Emergency Department. We are available 24 hours a day. TAWNYA HERRING has been given the following list of patient education materials, prescriptions and follow-up instructions: Follow-up Instructions: With: Address: When: DARWIN JNOES [address] [place] [address] [phone] Business (1) In 3 days 09/09/2024 Comments: Call to schedule a follow-up appointment with your primary care provider. Use Zofran as needed for nausea/vomiting. Return to the ED with any new or worsening symptoms. In the event that this physician does not participate in your insurance network, please consult with your insurance company to find a nearby participating provider. Patient Education Materials: Concussion, Adult, Kezi-bk-Rkwu A MESSAGE TO ALL PATIENTS REGARDING OPIOIDS PRESCRIPTION OPIOIDS: WHAT YOU NEED TO KNOW Prescription opioids can be used to help relieve nhagqyne-am-wmgnwi pain and are often prescribed following a [...] as well, even when taken as directed: ??? Tolerance???meaning you might need to take more of the medication for the same pain relief ??? Physical dependence???meaning you have symptoms of withdrawal when a medication is stopped ??? Increased sensitivity to pain ??? Constipation ??? Nausea, vomiting, and dry mouth ??? Sleepiness and dizziness ??? Confusion ??? Depression ??? Low levels of testosterone that can result in lower sex drive, energy, and strength ??? Itching and sweating RISKS ARE GREATER WITH: ??? History of drug misuse, substance use disorder, or overdose ??? Mental health conditions (such as depression or anxiety) ??? Sleep apnea ??? Older age (65 years and older) ??? Avoid alcohol while taking prescription opioids. Also, unless specifically advised by your health care provider, medications to avoid include: ??? Benzodiazepines (such as Xanax or Valium) ??? Muscle relaxants (such as Soma or Flexeril) ??? Hypnotics (such as Ambien or Lunesta) ??? Other prescription opioids KNOW YOUR OPTIONS Talk to your health care provider about ways to manage your pain that don???t involve prescription opioids. Some of these options may actually work better and have fewer risks and side effects. Options may include: ??? Pain relievers such as acetaminophen, ibuprofen, and naproxen ??? Some medication that are also used for depression or seizures ??? Physical therapy and exercise ??? Cognitive behavioral therapy, a psychological, goal-directed approach, in which patients learn how to modify physical, behavioral, and emotional triggers of pain and stress. IF YOU ARE PRESCRIBED OPIOIDS FOR PAIN: ??? Never take opioids in greater amounts or more often than prescribed. ??? Follow up with your primary health care provider. o Work together to create a plan on how to manage your pain. o Talk about ways to help manage your pain that don???t involve prescription opioids. o Talk about any and all concerns and side effects. ??? Help prevent misuse and abuse o Never sell or share prescription opioids. o Never use another person???s prescription opioids. ??? Store prescription opioids in a secure place and out of reach of others (this may include visitors, children, friends, and family). ??? Safely dispose of unused prescription opioids: Find your community drug take-back program or your pharmacy mail-back program, or flush them down the toilet, following guidance from the Food and Drug Administration (www.fda.gov/Drugs/Resourc esForYou). (more content not included)... Normal [facility] BLOOD BANKOrdered By: Estefany Morillo on 09-05-2024 Fibronectin. Ql (Vag fld) Negative 1 (09/05/24 5:47 AM) Normal [facility] Comment on above: Interpretive Data: [address] , a positive result is associated with delivery in: -symptomatic women between 24-36 weeks, 6 days gestation -asymptomatic women between 22-30 weeks, 6 days gestation Manipulation of the cervix may lead to false positive results. Cervicovaginal specimens should be obtained prior to digital examination or manipulation of the cervix. Lubricants, soaps, disinfectants, or creams may interfere with absorption of the specimen by the applicator or with the antibody-antigen reaction. BMPon 09-05-2024 Anion gap [Moles/Vol] 16 mmol/L Normal 6-16 [facility] Comment on above: Performed By: #### 2 [id number] #### [facility] [address] [place] [address] Calcium [Mass/Vol] 8.5 mg/dL Low 8.9-11.1 [facility] Comment on above: Performed By: #### 2 [id number] #### [facility] [address] [place] [address] Chloride [Moles/Vol] 108 mmol/L Normal 101-111 [facility] Comment on above: Performed By: #### 2 [id number] #### [facility] [address] [place] [address] CO2 [Moles/Vol] 17 mmol/L Low 21-31 [facility] Comment on above: Performed By: #### 2 [id number] #### [facility] [address] [place] [address] Creatinine [Mass/Vol] 0.4 mg/dL Low 0.5-1.3 [facility] Comment on above: Performed By: #### 2 [id number] #### [facility] [address] [place] [address] Glucose [Mass/Vol] 103 mg/dL Normal 55-199 [facility] Comment on above: Performed By: #### 2 [id number] #### [facility] [address] [place] [address] Potassium [Moles/Vol] 3.6 mmol/L Normal 3.5-5.3 [facility] Comment on above: Performed By: #### 2 [id number] #### [facility] [address] [place] [address] Sodium [Moles/Vol] 137 mmol/L Normal 135-145 [facility] Comment on above: Performed By: #### 2 [id number] #### [facility] [address] [place] [address] Urea nitrogen [Mass/Vol] 9 mg/dL Normal 5-21 [facility] Comment on above: Performed By: #### 2 [id number] #### [facility] [address] [place] [address] Urea nitrogen/Creatinine [Mass ratio] 22 No Units High 10-20 [facility] Comment on above: Performed By: #### 2 [id number] #### [facility] [address] [place] [address] CBC w/ Auto Diffon 5 Basophils/100 WBC (Bld) 0.4 % Normal 0.0-2.0 [facility] Comment on above: Performed By: #### 2 [id number] #### [facility] [address] [place] [address] Basophils/Leukocytes Auto (Bld) [Pure # fraction] 0.1 E9/L Normal 0.0-0.2 [facility] Comment on above: Performed By: #### 2 [id number] #### [facility] [address] [place] [address] Eosinophils (Bld) [#/Vol] 0.0 E9/L Normal 0.0-0.5 [facility] Comment on above: Performed By: #### 2 [id number] #### [facility] [address] [place] [address] Eosinophils/100 WBC (Bld) 0.3 % Normal 0.0-8.0 [facility] Comment on above: Performed By: #### 2 [id number] #### [facility] [address] [place] [address] Erythrocyte distribution width (RBC) [Ratio] 12.7 % Normal 10.9-14.2 [facility] Comment on above: Performed By: #### 2 [id number] #### [facility] [address] [place] [address] Hematocrit (Bld) [Volume fraction] 37.4 % Normal 34.0-46.0 [facility] Comment on above: Performed By: #### 2 [id number] #### [facility] [address] [place] [address] Hemoglobin (Bld) [Mass/Vol] 13.2 g/dL Normal 12.0-16.0 [facility] Comment on above: Performed By: #### 2 [id number] #### [facility] [address] [place] [address] Lymphocytes (Bld) [#/Vol] 1.1 E9/L Normal 1.0-4.0 [facility] Comment on above: Performed By: #### 2 [id number] #### [facility] [address] [place] [address] Lymphocytes/100 WBC (Bld) 7.0 % Low 14.0-50.0 [facility] Comment on above: Performed By: #### 2 [id number] #### [facility] [address] [place] [address] MCH (RBC) [Entitic mass] 33.0 pg Normal 27.0-34.0 [facility] Comment on above: Performed By: #### 2 [id number] #### [facility] [address] [place] [address] [place] [address] MCHC (RBC) [Mass/Vol] 35.4 g/dL Normal 31.4-36.0 [facility] Comment on above: Performed By: #### 2 [id number] #### [facility] [address] [place] [address] MCV (RBC) [Entitic vol] 93.3 fL Normal 80.0-100.0 [facility] Comment on above: Performed By: #### 2 [id number] #### [facility] [address] [place] [address] Monocytes (Bld) [#/Vol] 0.7 E9/L Normal 0.2-1.0 [facility] Comment on above: Performed By: #### 2 [id number] #### [facility] [address] [place] [address] Neutrophils (Bld) [#/Vol] 13.7 E9/L High 2.0-7.5 [facility] Comment on above: Performed By: #### 2 [id number] #### [facility] [address] [place] [address] Neutrophils/100 WBC (Bld) 87.6 % High 36.0-75.0 [facility] Comment on above: Performed By: #### 2 [id number] #### [facility] [address] [place] [address] Platelet 324.0 E9/L Normal 150.0-500. 0 [facility] Comment on above: Performed By: #### 2 [id number] #### [facility] [address] [place] [address] Platelet mean volume (Bld) [Entitic vol] 8.3 fL Normal 6.4-10.8 [facility] Comment on above: Performed By: #### 2 [id number] #### [facility] [address] [place] [address] RBC (Bld) [#/Vol] 4.0 E12/L Low 4.3-5.9 [facility] Comment on above: Performed By: #### 2 [id number] #### [facility] [address] [place] [address] WBC corrected for nucl RBC Auto (Bld) [#/Vol] 15.6 E9/L High 4.0-11.0 [facility] Comment on above: Performed By: #### 2 [id number] #### [facility] [address] [place] [address] CHEMISTRYOrdered By: SYSTEM SYSTEM on 09-05-2024 Albumin [Mass/Vol] 3.8 g/dL Normal 3.3 - 5.0 gm/dL Remisol Chem Albumin/Globulin [Mass ratio] 1.5 {ratio} Normal 1.1 - 2.2 Remisol Chem ALP [Catalytic activity/Vol] 80 [iU]/d Normal 21 - 98 Int._Unit/ L Remisol Chem ALT No additional P-5'-P [Catalytic activity/Vol] 20 [iU]/d Normal 6 - 46 Int._Unit/ L Remisol Chem Anion gap [Moles/Vol] 16 mmol/L Normal 6 - 16 mEq/L Remisol Chem AST [Catalytic activity/Vol] 15 [iU]/d Normal 5 - 43 Int._Unit/ L Remisol Chem Bilirubin [Mass/Vol] 0.6 mg/dL Normal 0.0 - 1 .1 mg/dL Remisol Chem Bilirubin.direct [Mass/Vol] 0.1 mg/dL Normal 0.0 - 0.4 mg/dL Remisol Chem Bilirubin.indirect [Mass or moles/Vol] 0.5 mg/dL Normal 0.1 - 0.9 mg/dL Remisol Chem Calcium [Mass/Vol] 8.5 mg/dL Low 8.9 - 11. 1 mg/dL Remisol Chem Chloride [Moles/Vol] 108 mmol/L Normal 101 - 1 11 mmol/L Remisol Chem CO2 [Moles/Vol] 17 mmol/L Low 21 - 31 mmol/L Remisol Chem Creatinine [Mass/Vol] 0.4 mg/dL Low 0.5 - 1.3 mg/dL Remisol Chem eGFR 138 mL/min/1.73 m2 Normal >=59mL/mi n /1.73 m2 Remisol Chem Globulin (S) [Mass/Vol] 2.6 g/dL Normal 1.4 - 4.0 gm/dL Remisol Chem Glucose [Mass/Vol] 103 mg/dL Normal 55 - 199 mg/dL Remisol Chem Lipase [Catalytic activity/Vol] 18 U/L Normal 13 - 58 unit/L Remisol Chem Potassium [Moles/Vol] 3.6 mmol/L Normal 3.5 - 5.3 mmol/L Remisol Chem Protein [Mass/Vol] 6.4 g/dL Normal 6.0 - 7.8 gm/dL Remisol Chem Sodium [Moles/Vol] 137 mmol/L Normal 135 - 145 mmol/L Remisol Chem Troponin HS 2.70 pg/mL Low 10.10 - 27.10 pg/mL Remisol Chem Comment on above: Interpretive Data: T he 95% CI (Confidence Interval) PPV (Positive Predictive Value) for myocardial infarction in females is 38 pg/mL, in males 51 pg/mL. The results should be used in conjunction with clinical conditions of myocardial infarction. (Access High Sensitivity Troponin I Instructions For Use, [place], March 2018) Urea nitrogen [Mass/Vol] 9 mg/dL Normal 5 - 21 mg/dL Remisol Chem Urea nitrogen/Creatinine [Mass ratio] 22 mg/mg High 10 - 20 Remisol Chem ED Clinical Summaryon 2024 ED Clinical Summary ED Clinical Summary [place] [id number] ED Clinical Summary Person Information Name: TAWNYA HERRING [facility] Age: 29 Years : 1995 Sex: Female Language: Spanish PCP: DARWIN JONES CNP Marital Status: Single Phone: [phone] Visit Id: Visit Reason: Abdominal pain - ; Vomiting - ; Syncope/Near syncope; PASSED OUT HIT HEAD,NAUSEA DIARRHEA VOMITING 30 WKS PREG Speciality: Acuity: 2 Enc Type: Emergency Med Service: Emergency Arrival: 09/05/2024 03:02:46 Discharge: LOS: 000 01:33 Checkin: 09/05/2024 03:02:46 Checkout: 09/05/2024 04:35:45 Dispo Type: Admitted as IP to this Hosp EVENTS: Event Name Event Status Request Date/Time Start Date/Time Complete Date/Time Arrive Complete 09/05/2024 03:02:46 09/05/2024 03:02:46 09/05/2024 03:02:46 Document Home Meds Request 09/05/2024 03:02:46 Triage Complete 09/05/2024 03:02:46 09/05/2024 03:12:05 09/05/2024 03:12:05 Dr Exam Complete 09/05/2024 03:04:55 09/05/2024 03:04:55 09/05/2024 03:04:55 Registration Complete 09/05/2024 03:04:55 09/05/2024 03:12:35 09/05/2024 03:15:16 EKG Complete 09/05/2024 03:09:55 09/05/2024 03:24:10 Bed Assign Complete 09/05/2024 03:12:35 09/05/2024 03:12:35 09/05/2024 03:12:35 RN Exam Complete 09/05/2024 03:12:35 09/05/2024 03:39:30 09/05/2024 03:39:30 Reg Complete Request 09/05/2024 03:15:16 Reg Bed Request Complete 09/05/2024 03:15:16 09/05/2024 03:15:16 09/05/2024 03:15:16 Meds Admin Complete 09/05/2024 03:21:29 09/05/2024 03:32:56 Pending Labs Request 09/05/2024 03:21:29 Lab Complete 09/05/2024 03:21:29 09/05/2024 04:02:03 Swab Complete 09/05/2024 03:21:29 09/05/2024 04:00:47 Pending Labs Cancel 09/05/2024 03:25:07 09/05/2024 03:44:46 Pending Labs Complete 09/05/2024 03:33:14 09/05/2024 03:33:14 09/05/2024 04:02:03 Lab Complete 09/05/2024 03:33:14 09/05/2024 03:33:14 09/05/2024 04:02:03 Pending Labs Complete 09/05/2024 03:45:15 09/05/2024 03:45:15 09/05/2024 04:08:56 Meds Admin Complete 09/05/2024 03:51:51 09/05/2024 04:03:12 Discharge Request 09/05/2024 04:19:08 Inpatient Bed Ready Complete 09/05/2024 04:35:45 09/05/2024 04:35:45 09/05/2024 04:35:45 ADDRESS: [address] [place] [address] [id number] PHYS DOC NOTES: MEDICAL INFORMATION: Prescriptions Given: Medications to Continue with No Changes Other Medications citalopram (CeleXA 20 mg Tab) 1 Tablets By Mouth every day. PATIENT EDUCATION INFORMATION: Instructions: Syncope, Adult, Wjbs-ea-Tscw; Nausea and Vomiting, Adult, Kyjk-tt-Skwe; Diarrhea, Adult, Rhkq-lu-Vxkz; Dehydration, Adult, Eshb-te-Ggww Follow up: With: Address: When: DARWIN JONES [address] [place] [id number] [phone] Business (1) In 3 days 09/08/2024 Comments: Please follow-up with Dr. Way for further evaluation management. Please return to the ED for any new or worsening symptoms. DIAGNOSIS: Dehydration; Diarrhea, unspecified; Nausea, vomiting, and diarrhea; Syncope Normal [facility] ED Note-Nursingon 09-05-2024 ED Note-Nursing ED Note-Nursing OB at bedside Normal [facility] ED Note-Physicianon 09-05-19 ED Note-Physician ED Note-Physician Basic Information Time Seen: Gabriel Curtis DO 09/05/2024 03:04 Chief Complaint States syncopal episode in bathroom on toilet, striking head on cabinet. Diarrhea, nausea and vomiting since 2199. ABD cramping since 2299. Pt is 30 weeks History of Present Illness Patient is a 29-year-old female G3, P2 currently 30 weeks gestation following with Dr. Way presenting to the ED for evaluation of nausea vomiting diarrhea. Patient states she started having nausea vomiting diarrhea about 2200 on Wednesday started having abdominal cramping shortly after that. Patient states she was on the toilet vomiting and having a diarrhea episode when she had a syncopal episode hit her head on the cabinet. Patient is complaining some mild left head pain but denies any other complaints, vision changes. Denies any chest pain, shortness of breath. Review of Systems A 10 point review of systems is negative except as noted above. Medical and Surgical History: Reviewed and noted Social history: Lives at home Tobacco: Denies Physical Exam Vitals & Measurements T: 36.5 ???C(Oral) HR: 128(Peripheral) RR: 20 BP: 132/83 SpO2: 98% HT: 170.1 cm WT: 112.6 kg BMI: 38.92 General: Well developed, non toxic appearing, no acute distress HEENT: Head atraumatic, Mucosa moist, hearing grossly normal Neck: No JVD, tracheal deviation Cardiac: Tachycardic, regular rhythm no murmurs, or gallops, 2+ radial pulses Respiratory: Lungs clear to auscultation B/L, normal respiratory effort Abdomen: Soft non tender, no rebound or guarding, no peritoneal signs gravid Extremities: No edema noted in the LE B/L, no tenderness to palpation Neurologic: Alert and oriented, speech clear Skin: No rashes or lesions Psych: Appropriate mood and behavior Medical Decision Making MEDICAL DECISION MAKING Number and Complexity of Problems Differential Diagnosis: [] [facility] Data External documents reviewed: [] My EKG interpretation: [] My CT interpretation: [] My X-ray interpretation: [] My Ultrasound interpretation: [] Decision rules/scores evaluated: [] Discussed with: [] Treatment and Disposition ED Course: Patient is a 29-year-old female presenting to the ED for evaluation of nausea vomiting diarrhea and syncope. Patient is tachycardic on initial arrival otherwise in no acute distress. Due to her complaints laboratory evaluation is obtained,. Patient is given Zofran, IV fluids. Patient will risk head injury to discussed rest benefits with patient she is comfortable with observation at this time. OB is called to monitor baby. Patient's laboratory evaluation reveals leukocytosis of 15.6 likely secondary to the vomiting in addition to , bicarb is low at 17, troponin is negative, flu is negative. Patient still having nausea and vomiting is given 25 of Phenergan. OB did monitor baby's irritability and contractions. I discussed with Dr. Nath who will admit the patient up to OB for further monitoring. Patient is comfortable with this plan. Shared decision making: [] Code status: [] Assessment/Plan Dehydration (E86.0: Dehydration) Diarrhea, unspecified (R19.7: Diarrhea, unspecified) Nausea, vomiting, and diarrhea (R11.2: Nausea with vomiting, unspecified) Syncope (R55: Syncope and collapse) Orders: ondansetron, 4 mg = 2 mL, Injection, IV Push, Once, Stop date 09/05/24 3:21:00 EST, STAT, Start date 09/05/24 3:21:00 EST, 09/05/24 3:21:00 EST promethazine 25 mg + Sodium Chloride 0.9% intravenous solution 50 mL, Injection, IV Piggyback, Once, Stop date 09/05/24 3:51:00 EST, STAT, Start date 09/05/24 3:51:00 EST, 153 mL/hr, Infuse over 20 minute(s) Sodium Chloride 0.9% intravenous solution, 1,000 mL, Soln-IV, IV, Once, Stop date 09/05/24 3:21:00 EST, STAT, Start date 09/05/24 3:21:00 EST, Infuse over 61, minute(s) Basic Metabolic Panel CBC w/ Auto Diff eGFR Hepatic Function Panel Influenza A&B Ag Lipase Level Troponin 0 Hr. UA with Cult Rflx Medications Administered Given NS 1000 ml Bolus, 1000 mL, IV ondansetron 4 mg/2 mL Inj, 4 mg, IV Push Sodium Chloride 0.9% IV Dayna 50 mL [F] 50 mL + [id number] [F] 25 mg, IV Piggyback Disposition Plan Patient Discharge Condition Fair Discharge Disposition Admitted to OB Discharge Prescription List Prescriptions No active prescription medications Follow-up No qualifying data available Problem List/Past Medical History Ongoing Anxiety Kidney stones Obesity Weight gain Historical No qualifying data Procedure/Surgical History delivery. Medications Inpatient NS 1000 ml Bolus, 1000 mL, IV, Once ondansetron 4 mg/2 mL Inj, 4 mg= 2 mL, IV Push, Once Home CeleXA 20 mg Tab, 20 mg= 1 tab(s), Oral, Daily citalopram 20 mg Tab Vitamin B6 100 mg Tab, Oral, Daily Allergies No Known Allergies No Known Medication Allergies Social History Alcohol - Denies Alcohol Use, 03/12/2020 (more content not included)... Normal [facility] Comment on above: Result Comment: Elec tronically Signed By: Gabriel Curtis DO\.br\Date and Time Signed: 09/05/24 04:22 EST ED Patient Summaryon 025 ED Patient Summary ED Patient Summary [place] [id number] Patient Discharge Instructions Person Information Name: TAWNYA HERRING Age: 29 Years Arrival Date: 09/05/2024 03:02:46 Discharge Diagnosis: Dehydration; Diarrhea, unspecified; Nausea, vomiting, and diarrhea; Syncope Primary Care Physician: DARWIN JONES CNP Provider Information Primary Provider: Gabriel Curtis DO [employer] Model Maker:None The exam and treatment you received in the Emergency Department were for an urgent problem and are not intended as complete care. It is important that you follow up with a doctor, nurse practitioner, or physician???s engineer first assistant for ongoing care. If your symptoms become worse or you do not improve as expected and you are unable to reach your usual health care provider, you should return to the Emergency Department. We are available 24 hours a day. TAWNYA HERRING has been given the following list of patient education materials, prescriptions and follow-up instructions: Follow-up Instructions: With: Address: Charissa: DARWIN JONES [address] [place] [phone] Business (1) In 3 days 09/08/2024 Comments: Please follow-up with Dr. Way for further evaluation management. Please return to the ED for any new or worsening symptoms. In the event that this physician does not participate in your insurance network, please consult with your insurance company to find a nearby participating provider. Patient Education Materials: Syncope, Adult, Ojpc-eb-Ykol; Nausea and Vomiting, Adult, Zlzt-gg-Xhth; Diarrhea, Adult, Vcrr-kb-Yiaz; Dehydration, Adult, Ylxl-pv-Mzoa A MESSAGE TO ALL PATIENTS REGARDING OPIOIDS PRESCRIPTION OPIOIDS: WHAT YOU NEED TO KNOW Prescription opioids can be used to help relieve swqetqsl-fy-bomwio pain and are often prescribed following a [...] as well, even when taken as directed: ??? Tolerance???meaning you might need to take more of the medication for the same pain relief ??? Physical dependence???meaning you have symptoms of withdrawal when a medication is stopped ??? Increased sensitivity to pain ??? Constipation ??? Nausea, vomiting, and dry mouth ??? Sleepiness and dizziness ??? Confusion ??? Depression ??? Low levels of testosterone that can result in lower sex drive, energy, and strength ??? Itching and sweating RISKS ARE GREATER WITH: ??? History of drug misuse, substance use disorder, or overdose ??? Mental health conditions (such as depression or anxiety) ??? Sleep apnea ??? Older age (65 years and older) ??? Avoid alcohol while taking prescription opioids. Also, unless specifically advised by your health care provider, medications to avoid include: ??? Benzodiazepines (such as Xanax or Valium) ??? Muscle relaxants (such as Soma or Flexeril) ??? Hypnotics (such as Ambien or Lunesta) ??? Other prescription opioids KNOW YOUR OPTIONS Talk to your health care provider about ways to manage your pain that don???t involve prescription opioids. Some of these options may actually work better and have fewer risks and side effects. Options may include: ??? Pain relievers such as acetaminophen, ibuprofen, and naproxen ??? Some medication that are also used for depression or seizures ??? Physical therapy and exercise ??? Cognitive behavioral therapy, a psychological, goal-directed approach, in which patients learn how to modify physical, behavioral, and emotional triggers of pain and stress. IF YOU ARE PRESCRIBED OPIOIDS FOR PAIN: ??? Never take opioids in greater amounts or more often than prescribed. ??? Follow up with your primary health care provider. o Work together to create a plan on how to manage your pain. o Talk about ways to help manage your pain that don???t involve prescription opioids. o Talk about any and all concerns and side effects. ??? Help prevent misuse and abuse o Never sell or share prescription opioids. o Never use another person???s prescription opioids. ??? Store prescription opioids in a secure place and out of reach of others (this may include visitors, children, friends, and family). ??? Safely dispose of unused prescription opioids: Find your community drug take-back program or your pharmacy mail-back program, or flush them down t (more content not included)... Normal [facility] Extra Blueon 09-05-2024 Tube Collected Plasma Yes Invalid Interpretation Code [facility] Comment on above: Performed By: #### 1 [id number] #### [facility] [address] [place] [address] FFNon 09-05-2024 Fibronectin. Ql (Vag fld) Negative Normal [facility] Comment on above: Result Comment: In [place] , a positive result is associated with delivery in: -symptomatic women between 24-36 weeks, 6 days gestation -asymptomatic women between 22-30 weeks, 6 days gestation Manipulation of the cervix may lead to false positive results. Cervicovaginal specimens should be obtained prior to digital examination or manipulation of the cervix. Lubricants, soaps, disinfectants, or creams may interfere with absorption of the specimen by the applicator or with the antibody-antigen reaction. Performed By: #### 1 [id number] #### [facility] [address] [place] [address] HEMATOLOGYOrdered By: SYSTEM SYSTEM on 09-05-2024 Basophils/100 WBC (Bld) 0.4 % Normal 0.0 - 2.0 % Remisol Heme Basophils/Leukocytes Auto (Bld) [Pure # fraction] 0.1 E9/L Normal 0.0 - 0.2 E9/L Remisol Heme Eosinophils (Bld) [#/Vol] 0.0 E9/L Normal 0.0 - 0.5 E9/L Remisol Heme Eosinophils/100 WBC (Bld) 0.3 % Normal 0.0 - 8.0 % Remisol Heme Erythrocyte distribution width (RBC) [Ratio] 12.7 % Normal 10.9 - 14.2 % Remisol Heme Hematocrit (Bld) [Volume fraction] 37.4 % Normal 34.0 - 46.0 % Remisol Heme Hemoglobin (Bld) [Mass/Vol] 13.2 g/dL Normal 12.0 - 16.0 gm/dL Remisol Heme Lymphocytes (Bld) [#/Vol] 1.1 E9/L Normal 1.0 - 4.0 E9/L Remisol Heme Lymphocytes/100 WBC (Bld) 7.0 % Low 14.0 - 50.0 % Remisol Heme MCH (RBC) [Entitic mass] 33.0 pg Normal 27.0 - 34.0 pg Remisol Heme MCHC (RBC) [Mass/Vol] 35.4 g/dL Normal 31.4 - 36.0 gm/dL Remisol Heme MCV (RBC) [Entitic vol] 93.3 fL Normal 80.0 - 100.0 fL Remisol Heme Monocytes (Bld) [#/Vol] 0.7 E9/L Normal 0.2 - 1.0 E9/L Remisol Heme Monocytes/100 WBC (Bld) 4.7 % Normal 4.0 - 14.0 % Remisol Heme Neutrophils (Bld) [#/Vol] 13.7 E9/L High 2.0 - 7.5 E9/L Remisol Heme Neutrophils/100 WBC (Bld) 87.6 % High 36.0 - 75.0 % Remisol Heme Platelet 324.0 E9/L Normal 150.0 - 500.0 E9/L Remisol Heme Platelet mean volume (Bld) [Entitic vol] 8.3 fL Normal 6.4 - 10.8 fL Remisol Heme RBC (Bld) [#/Vol] 4.0 E12/L Low 4.3 - 5.9 E12/L Remisol Heme WBC corrected for nucl RBC Auto (Bld) [#/Vol] 15.6 E9/L High 4.0 - 11.0 E9/L Remisol Heme Hep Func Panelon 09-05-2024 Albumin [Mass/Vol] 3.8 g/dL Normal 3.3-5.0 [facility] Comment on above: Performed By: #### 2 [id number] #### [facility] [address] [place] [address] Albumin/Globulin (S) [Mass conc ratio] 1.5 Normal 1.1-2.2 [facility] Comment on above: Performed By: #### 2 [id number] #### [facility] [address] [place] [address] ALP [Catalytic activity/Vol] 80 Int._Unit/L Normal 21-98 [facility] Comment on above: Performed By: #### 2 [id number] #### [facility] [address] [place] [address] ALT No additional P-5'-P [Catalytic activity/Vol] 20 Int._Unit/L Normal 6-46 [facility] Comment on above: Performed By: #### 2 [id number] #### [facility] [address] [place] [address] AST [Catalytic activity/Vol] 15 Int._Unit/L Normal 5-43 [facility] Comment on above: Performed By: #### 2 [id number] #### [facility] [address] [place] [address] Bilirubin [Mass/Vol] 0.6 mg/dL Normal 0.0-1.1 [facility] Comment on above: Performed By: #### 2 [id number] #### [facility] [address] [place] [address] Bilirubin.direct [Mass/Vol] 0.1 mg/dL Normal 0.0-0.4 [facility] Comment on above: Performed By: #### 2 [id number] #### [facility] [address] [place] [address] Bilirubin.indirect [Mass or moles/Vol] 0.5 mg/dL Normal 0.1-0.9 [facility] Comment on above: Performed By: #### 2 [id number] #### [facility] [address] [place] [address] Globulin (S) [Mass/Vol] 2.6 g/dL Normal 1.4-4.0 [facility] Comment on above: Performed By: #### 2 [id number] #### [facility] [address] [place] [address] Protein [Mass/Vol] 6.4 g/dL Normal 6.0-7.8 [facility] Comment on above: Performed By: #### 2 [id number] #### [facility] [address] [place] [address] Influenza A&B Agon Influenzae A Ag Negative Normal Negative [facility] Comment on above: Performed By: #### 1 [id number] #### [facility] [address] [place] [address] Influenzae B Ag Negative Normal Negative [facility] Comment on above: Result Comment: Test sensitivity and specificity vary for age group, specimen type, antigen types, and prevalence of disease. Test results must be evaluated in conjunction with other clinical data available to the physician. Individuals who received nasally administered Influenza A vaccine may have positive test results up to 3 days after vaccination. Performed By: #### 1 [id number] #### [facility] [address] [place] [address] Inpatient Clinical Summaryon 09-05-2024 Inpatient Clinical Summary Inpatient Clinical Summary [address] [address] Clinical Summary Person Information Name: TAWNYA HERRING [facility] Age: 29 Years : 1995 Sex: Female PCP: DARWIN JONES CNP Marital Status: Single Phone: [phone] Race: White Ethnicity: Non- or Language: Spanish Visit Id: Visit Reason: Abdominal pain - ; Vomiting - ; Syncope/Near syncope; PASSED OUT HIT HEAD,NAUSEA DIARRHEA VOMITING 30 WKS PREG Speciality: Acuity: Obs Enc Type: Observation Med Service: Obstetrics Arrival: 09/05/2024 03:02:46 Discharge: 09/05/2024 15:50:00 Dispo Type: Home (Routine DC) Address: [address] [place] [address] [phone] Provider Notes: Diagnosis: Dehydration; Diarrhea, unspecified; Nausea, vomiting, and diarrhea; Syncope Problems Active (02/02/2024) Kidney stones Obesity Weight gain Anxiety Smoking Status: Never Smoker Functional Status: Sensory Deficits: History of Falls: Mobility Assistance Prior to Admission: ADLs: Independent Current Level of Assistance for Self-Care/Mobility: Cognitive Status: Oriented x 3 Allergies No Known Medication Allergies No Known Allergies Laboratory or Other Results This Visit (last charted value for your 09/05/2024 visit) Hematology 09/05/2024 3:22 AM Basophil Auto: 0.4 % -- Normal range between ( 0.0 and 2.0 ) Eos Auto: 0.3 % -- Normal range between ( 0.0 and 8.0 ) Hct: 37.4 % -- Normal range between ( 34.0 and 46.0 ) HGB: 13.2 gm/dL -- Normal range between ( 12.0 and 16.0 ) Lymph Auto: 7.0 % -- Normal range between ( 14.0 and 50.0 ) RBC: 4.0 E12/L -- Normal range between ( 4.3 and 5.9 ) RDW: 12.7 % -- Normal range between ( 10.9 and 14.2 ) MCH: 33.0 pg -- Normal range between ( 27.0 and 34.0 ) MCHC: 35.4 gm/dL -- Normal range between ( 31.4 and 36.0 ) MCV: 93.3 fL -- Normal range between ( 80.0 and 100.0 ) Hyde Auto: 4.7 % -- Normal range between ( 4.0 and 14.0 ) MPV: 8.3 fL -- Normal range between ( 6.4 and 10.8 ) Neutro Auto: 87.6 % -- Normal range between ( 36.0 and 75.0 ) Platelet: 324.0 E9/L -- Normal range between ( 150.0 and 500.0 ) WBC: 15.6 E9/L -- Normal range between ( 4.0 and 11.0 ) Hyde Absolute: 0.7 E9/L -- Normal range between ( 0.2 and 1.0 ) Eos Absolute: 0.0 E9/L -- Normal range between ( 0.0 and 0.5 ) Basophil Absolute: 0.1 E9/L -- Normal range between ( 0.0 and 0.2 ) Neutro Absolute: 13.7 E9/L -- Normal range between ( 2.0 and 7.5 ) Lymph Absolute: 1.1 E9/L -- Normal range between ( 1.0 and 4.0 ) Urinalysis 09/05/2024 5:25 AM UA Bacteria: Trace /HPF UA Bili: 1+ mg/dL UA Color: Dark-Yellow UA Glucose: Trace mg/dL UA Ketones: 1+ mg/dL UA Leuk Est: 25 Chaparrita/uL Chaparrita/uL UA Mucous: 4+ graded/LPF UA Nitrite: 1+ mg/dL UA Protein: 1+ mg/dL UA RBC: 0-3 graded/HPF UA Squam Epithelial: 5-8 graded/HPF UA Urobilinogen: 2 mg/dL mg/dL UA WBC: 0-5 graded/HPF UA Spec Desc: Clean Catch UA Blood: Negative mg/dL UA Clarity: Turbid UA pH: 5.5 -- Normal range between ( 5.0 and 9.0 ) UA Spec Grav: 1.029 -- Normal range between ( 1.005 and 1.030 ) Chemistry 09/05/2024 3:22 AM Creatinine: 0.4 mg/dL -- Normal range between ( 0.5 and 1.3 ) A/G Ratio: 1.5 -- Normal range between ( 1.1 and 2.2 ) BUN/Creat Ratio: 22 -- Normal range between ( 10 and 20 ) AGAP: 16 mEq/L -- Normal range between ( 6 and 16 ) Albumin Lvl: 3.8 gm/dL -- Normal range between ( 3.3 and 5.0 ) Alk Phos: 80 Int._Unit/L -- Normal range between ( 21 and 98 ) ALT: 20 Int._Unit/L -- Normal range between ( 6 and 46 ) AST: 15 Int._Unit/L -- Normal range between ( 5 and 43 ) Bili Direct: 0.1 mg/dL -- Normal range between ( 0.0 and 0.4 ) Bili Total: 0.6 mg/dL -- Normal range between ( 0.0 and 1.1 ) CO2: 17 mmol/L -- Normal range between ( 21 and 31 ) Glucose Lvl: 103 mg/dL -- Normal range between ( 55 and 199 ) Lipase Lvl: 18 unit/L -- Normal range between ( 13 and 58 ) Sodium Lvl: 137 mmol/L -- Normal range between ( 135 and 145 ) Total Protein: 6.4 gm/dL -- Normal range between ( 6.0 and 7.8 ) Troponin HS: 2.70 pg/mL -- Normal range between ( 10.10 and 27.10 ) BUN: 9 mg/dL -- Normal range between ( 5 and 21 ) Calcium Lvl: 8.5 mg/dL -- Normal range between ( 8.9 and 11.1 ) Potassium Lvl: 3.6 mmol/L -- Normal range between ( 3.5 and 5.3 ) Chloride: 108 mmol/L -- Normal range between ( 101 and 111 ) Bili Indirect: 0.5 mg/dL -- Normal range between ( 0.1 and 0.9 ) eGFR: 138 mL/min/1.73 m2 Globulin: 2.6 gm/dL -- Normal range between ( 1.4 and 4.0 ) Blood Bank 09/05/2024 5:47 AM Fibronectin: Negative Micro Other Tests 09/05/2024 3:34 AM Influenzae A Ag: Negative Influenzae B Ag: Negative Measurements: Height: 170.8 cm Weight: 111.4 kg Blood Pressure: 111 mmHg / 42 mmHg BMI: 38.19 kg/m2 (more content not included)... Normal [facility] Inpatient Patient Summaryon 09-05-2024 Inpatient Patient Summary Inpatient Patient Summary [address] [address] Patient Discharge Instructions PERSON INFORMATION Name: TAWNYA HERRING Date of : 1995 Current Date: 09/05/2024 16:15:55 PHYSICIANS Admitting Physician: Pham GALLAGHER, Rogelio Robins Primary Care Physician: DARWIN JONES CNP PCP Phone Number: [phone] Comment: Discharge Diagnosis: Dehydration; Diarrhea, unspecified; Nausea, vomiting, and diarrhea; Syncope Condition at Discharge: Stable TAWNYA HERRING has been given the following list of follow-up instructions, prescriptions, and patient education materials: PATIENT FOLLOW-UP INFORMATION Diet: Regular Activity: Wound Care Instructions: Remove Your Dressing IN: Days Call Your Doctor For: IF UNABLE TO CONTACT YOUR PHYSICIAN AND YOU FEEL IT IS AN EMERGENCY, GO TO THE NEAREST EMERGENCY ROOM OR CALL 911 Home Treatment: Devices/Equipment: Special Services: Additional Instructions: Physician to provide the following pending test results: Urine culture Follow up: With: Address: When: [address] [facility], [address] [place] [address] [place] [address] [employer] (1) In 2 days 09/07/2024 Comments: Call 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 Way for further evaluation management. Please return to the ED for any new or worsening symptoms. In the event that this physician does not participate in your insurance network, please consult with your insurance company to find a nearby participating provider. Comment: INEVAEH ASHLEY M, have received the attached patient education materials/instructions and have verbalized understanding. Patient Signature __ Date Clinican/Nurse Signature Date MEDICATION LIST Medications to Continue with No Changes Other Medications aspirin (aspirin 81 mg Oral EC Tab) 1 tab(s) Oral. Last Dose: N ext Dose: citalopram (CeleXA 20 mg Tab) 1 Tablets By Mouth every day. Last Dose: N ext Dose: levothyroxine (Synthroid 50 mcg Tab) Oral 2 tab (100mcg) daily. Last Dose: N ext Dose: magnesium oxide (magnesium oxide 400 mg Tab) 1 Tablets By Mouth every day. Last Dose: N ext Dose: PATIENT EDUCATION INFORMATION Instructions: Syncope, Adult Syncope is when you pass out or faint for a short time. It is caused by a sudden decrease in blood flow to the brain. This can happen for many reasons. It can sometimes happen when seeing blood, getting a shot (injection), or having pain or strong emotions. Most causes of fainting are not dangerous, but in some cases it can be a sign of a serious medical problem. If you faint, get help right away. Call your local emergency services (911 in the [place] Follow these instructions at home: Watch for any changes in your symptoms. Take these actions to stay safe and help with your symptoms: Knowing when you may be about to faint ??? Signs that you may be about to faint include: ? Feeling dizzy or light-headed. It may feel like the room is spinning. ? Feeling weak. ? Feeling like you may vomit (nauseous). ? Seeing spots or seeing all white or all black. ? Having cold, clammy skin. ? Feeling warm and sweaty. ? Hearing ringing in the ears. ??? If you start to feel like you might faint, sit or lie down right away. If sitting, lower your head down between your legs. If lying down, raise (elevate) your feet above the level of your heart. ? Breathe deeply and steadily. Wait until all of the symptoms are gone. ? Have someone stay with you until you feel better. Medicines ??? Take cvrb-iak-spmxmab and prescription medicines only as told by your doctor. ??? If you are taking blood pressure or heart medicine, sit up and stand up slowly. Spend a few minutes getting ready to sit and then stand. This can help you feel less dizzy. Lifestyle ??? Do not drive, use machinery, or play sports until your doctor says it is okay. ??? Do not drink alcohol. ??? Do not smoke or use any products that contain nicotine or tobacco. If you need help quitting, ask your doctor. ??? Avoid hot tubs and saunas. General instructions ??? Talk with your doctor about your symptoms. You may need to have testing to help find the cause. ??? Drink enough fluid to keep your pee (urine) pale yellow. ??? Avoid standing for a long time. If you must stand for a long time, do movements such as: ? Moving your legs. ? Crossing your legs. ? Flexing (more content not included)... Normal [facility] Lipase Levelon 09-05-2024 Lipase [Catalytic activity/Vol] 18 U/L Normal 13-58 [facility] Comment on above: Performed By: #### 2 [id number] #### [facility] [address] [place] [address] MICRO OTHER TESTSOrdered By: Barrington Maxwell on 09-05-2024 Influenzae A Ag Negative (09/05/24 3:34 AM) Normal Negative [facility] Man Sero Influenzae B Ag Negative 3 (09/05/24 3:34 AM) Normal Negative [facility] Comment on above: Interpretive Data: T est sensitivity and specificity vary for age group, specimen type, antigen types, and prevalence of disease. Test results must be evaluated in conjunction with other clinical data available to the physician. Individuals who received nasally administered Influenza A vaccine may have positive test results up to 3 days after vaccination. Troponin 0 Hr.on 09-05-2024 Troponin HS 2.70 pg/mL Low 10.10-27.1 0 [facility] Comment on above: Result Comment: The 95% CI (Confidence Interval) PPV (Positive Predictive Value) for myocardial infarction in females is 38 pg/mL, in males 51 pg/mL. The results should be used in conjunction with clinical conditions of myocardial infarction. (Access High Sensitivity Troponin I Instructions For Use, Nathen [place], March 2018) Performed By: #### 1 [id number] #### [facility] [address] [place] [address] UA with Cult Rflxon 09-05-19 25 Bacteria Auto Ql (U) Trace Normal Trace Fish er [facility] Comment on above: Performed By: #### 4 [id number] #### [facility] [address] [place] [address] Bilirubin Ql (U) 1+ mg/dL Abnormal Negative [facility] Comment on above: Performed By: #### 4 [id number] #### [facility] [address] [place] [address] Clarity (U) Turbid Abnormal Clear [facility] Comment on above: Performed By: #### 4 [id number] #### [facility] [address] [place] [address] Color (U) Dark-Yellow Abnormal Yellow [facility] Comment on above: Result Comment: Micr oscopic readings are only performed on those samples that meet specific criteria set forth by [facility]. Performed By: #### 4 [id number] #### [facility] [address] [place] [address] Epithelial cells.squamous Auto (Urine sed) [#/Area] 5-8 Invalid Interpretation Code [facility] Comment on above: Performed By: #### 4 [id number] #### [facility] [address] [place] [address] Glucose Ql (U) Trace Abnormal Negative [facility] Comment on above: Performed By: #### 4 [id number] #### [facility] [address] [place] [address] Hemoglobin Auto test strip (U) [Mass/Vol] Negative Normal Negative [facility] Comment on above: Performed By: #### 4 [id number] #### [facility] [address] [place] [address] Ketones Auto test strip Ql (U) 1+ mg/dL Abnormal Negative [facility] Comment on above: Performed By: #### 4 [id number] #### [facility] [address] [place] [address] Leukocyte esterase Auto test strip Ql (U) 25 Chaparrita/uL Normal Negative [facility] Comment on above: Performed By: #### 4 [id number] #### [facility] [address] [place] [address] Mucus Auto Ql (U) 4+ [id number] Abnormal Negative [facility] Comment on above: Performed By: #### 4 [id number] #### [facility] [address] [place] [address] Nitrite Auto test strip Ql (U) 1+ mg/dL Abnormal Negative [facility] Comment on above: Performed By: #### 4 [id number] #### [facility] [address] [place] [address] pH (U) 5.5 [pH] Invalid Interpretation Code 5.0-9.0 [facility] Comment on above: Performed By: #### 4 [id number] #### [facility] [address] [place] [address] Protein Ql (U) 1+ mg/dL Abnormal Negative [facility] Comment on above: Performed By: #### 4 [id number] #### [facility] [address] [place] [address] RBC Ql (U) 0-3 Normal 0-3 [facility] Comment on above: Performed By: #### 4 [id number] #### [facility] [address] [place] [address] Specific gravity (U) [Rel density] 1.029 Invalid Interpretation Code 1.005-1.03 0 [facility] Comment on above: Performed By: #### 4 [id number] #### [facility] [address] [place] [address] Urobilinogen (U) [Mass/Vol] 2 mg/dL Abnormal Negative [facility] Comment on above: Performed By: #### 4 [id number] #### [facility] [address] [place] [address] WBC Auto (Urine sed) [#/Area] 0-5 Normal 0-5 [facility] Comment on above: Performed By: #### 4 [id number] #### [facility] [address] [place] [address] Type of Urine collection method Clean Catch Normal [facility] Comment on above: Performed By: #### 4 [id number] #### [facility] [address] [place] [address] URINALYSISOrdered By: SYSTEM SYSTEM on 09-05-2024 Bacteria Auto Ql (U) Trace /HPF Normal Trace/HPF [facility] UA Auto SS Bilirubin Ql (U) 1+ mg/dL Invalid Interpretation Code Negativemg /dL [facility] UA Auto SS Clarity (U) Turbid *ABN* (09/05/24 5:25 AM) Invalid Interpretation Code Clear [facility] UA Auto SS Color (U) Dark-Yellow 2 *ABN* (09/05/24 5:25 AM) Invalid Interpretation Code Yellow [facility] UA Auto SS Comment on above: Interpretive Data: M icroscopic readings are only performed on those samples that meet specific criteria set forth by [facility]. Epithelial cells.squamous Auto (Urine sed) [#/Area] 5-8 graded/HPF Invalid Interpretation Code [facility] UA Auto SS Glucose Ql (U) Trace mg/dL Invalid Interpretation Code Negativemg /dL [facility] UA Auto SS Hemoglobin Auto test strip (U) [Mass/Vol] Negative Normal Negativemg /dL [facility] UA Auto SS Ketones Auto test strip Ql (U) 1+ mg/dL Invalid Interpretation Code Negativemg /dL [facility] UA Auto SS Leukocyte esterase Auto test strip Ql (U) 25 Chaparrita/uL Chaparrita/uL Normal NegativeLe u/uL [facility] UA Auto SS Mucus Auto Ql (U) 4+ graded/LPF Invalid Interpretation Code Negativegr aded/LPF [facility] UA Auto SS Nitrite Auto test strip Ql (U) 1+ mg/dL Invalid Interpretation Code Negativemg /dL [facility] UA Auto SS pH (U) 5.5 *NA* (09/05/24 5:25 AM) Invalid Interpretation Code 5.0 - 9.0 [facility] UA Auto SS Protein Ql (U) 1+ mg/dL Invalid Interpretation Code Negativemg /dL [facility] UA Auto SS RBC Ql (U) 0-3 graded/HPF Normal 0-3graded/ HPF [facility] UA Auto SS Specific gravity (U) [Rel density] 1.029 *NA* (09/05/24 5:25 AM) Invalid Interpretation Code 1.005 - 1.030 [facility] UA Auto SS Urobilinogen (U) [Mass/Vol] 2 mg/dL Invalid Interpretation Code Negativemg /dL [facility] UA Auto SS WBC Auto (Urine sed) [#/Area] 0-5 graded/HPF Normal 0-5graded/ HPF [facility] UA Auto SS URINALYSISOrdered By: Rica Islas on 09-05-2024 UA Spec Desc Clean Catch (09/05/24 5:25 AM) Normal [facility] UA Auto SS eGFRon 09-05-2024 eGFR 138 mL/min/1.73 m2 Normal >=59 [facility] Comment on above: Performed By: #### 1 [id number] #### [facility] [address] [place] [address] ALL CBC WITH AUTO DIFFon BASOPHILS ABSOLUTE AUTO 0 [facility] Basophils/100 WBC (Bld) 0.2 % 0.2 - 2.0 % [facility] Eosinophils/100 WBC (Bld) 0.8 % Low 0.9 - 7.0 % [facility] Erythrocyte distribution width (RBC) [Ratio] 12.1 % 11.0 - 15.0 % [facility] Hematocrit (Bld) [Volume fraction] 33.9 % Low 36.0 - 48.0 % [facility] Hemoglobin (Bld) [Mass/Vol] 11.6 g/dL Low 12.0 - 16.0 g/dL [facility] IMMATURE GRANULOCYTES ABS AUTO 0.03 [facility] Immature granulocytes/100 WBC (Bld) 0.3 % 0.0 - 0.5 % [facility] Interpretation and review of laboratory results Abnormal [facility] LYMPHOCYTES ABSOLUTE AUTO 1.8 [facility] Lymphocytes/100 WBC (Bld) 19.8 % Low 20.5 - 60.0 % [facility] MCH (RBC) [Entitic mass] 32.9 pg 26.7 - 34.0 pg [facility] MCHC (RBC) [Mass/Vol] 34.2 g/dL 29.9 - 35.2 g/dL [facility] MCV (RBC) [Entitic vol] 96 fL 81.0 - 99.0 fL [facility] MONOCYTES ABSOLUTE AUTO 0.5 [facility] Monocytes/100 WBC (Bld) 5.4 % 1.7 - 12.0 % [facility] NEUTROPHILS ABSOLUTE AUTO 6.6 High [facility] Neutrophils/100 WBC (Bld) 73.5 % 43.0 - 75.0 % [facility] Platelet mean volume (Bld) [Entitic vol] 10.2 fL 9.5 - 13.5 fL [facility] TBH EO # 0.1 [facility] TBH PLT 287 [facility] TBH RBC 3.53 Low [facility] TBH WBC 9 [facility] Basophils Auto (Bld) [#/Vol] on 08-25-2024 Basophils (Bld) [#/Vol] Automated basophil count 0.0-0.1 [facility] Basophils/100 WBC Auto (Bld) on 08-25-2024 Basophils/100 WBC (Bld) Automated basophil % 0.2-2.0 [facility] Eosinophils/100 WBC Auto (Bl d)on 08-25-2024 Eosinophils/100 WBC (Bld) Automated eosinophil % Low 0.9-7.0 [facility] Erythrocyte distribution wid th Auto (RBC) [Ratio]on 08-25-2024 Erythrocyte distribution width (RBC) [Ratio] Erythrocyte distribution width [Ratio] by Automated count 11.0-15.0 [facility] FPG ECG *CARDIOLOGY ONLY*on 08-25-2024 FPG ECG *CARDIOLOGY ONLY* [facility] [address] Electrocardiograph Report Signed Patient: Tawnya Herring MR#: [id number] 29 : 1995 Acct:[id number] Age/Sex: 29 / F ADM Date: 08/25/24 Loc: EKGCARDIO Room: Type: [facility] Attending Dr: Mary Ellen Bruce MD Ordering Provider: Mary Ellen Bruce MD Date of Service: 08/25/2406/09/1202 ECG/FPG ECG *CARDIOLOGY ONLY*: I51.7 - Cardiomegaly Copies to: Test Reason : Blood Pressure : */* mmHG Vent. Rate : 99 BPM Atrial Rate : 99 BPM P-R Int : 134 ms QRS Dur : 78 ms QT Int : 330 ms P-R-T Axes : 26 49 27 degrees QTcB Int : 423 ms Normal sinus rhythm Normal ECG Confirmed by Mary Ellen Bruce ([id number]) on 08/25/2024 1:42:57 PM Referred By: Electronically Signed By: Mary Ellen Bruce Transcribed By: MUS Signed By Mary Ellen Bruce MD 5 [id number] Normal [facility] Hematocrit Auto (Bld) [Volum e fraction]on 08-25-2024 Hematocrit (Bld) [Volume fraction] Hematocrit [Volume Fraction] of Blood by Automated count Low 36.0-48.0 [facility] Hemoglobin [Mass/volume] in Bloodon 08-25-2024 Hemoglobin (Bld) [Mass/Vol] Hemoglobin [Mass/volume] in Blood Low 12.0-16.0 [facility] Laboratory - Chemistry and C hemistry - challengeon 08-25-2024 Glucose [Mass/Vol] 131 mg/dL High <130 [facility] Laboratory - Hematology and Cell countson 08-25-2024 Immature granulocytes/100 WBC (Bld) 0.3 % 0.0-0.5 [facility] Leukocytes [#/volume] correc hamilton for nucleated erythrocytes in Blood by Automated counon 08-25-2024 WBC corrected for nucl RBC Auto (Bld) [#/Vol] Leukocytes [#/volume] corrected for nucleated erythrocytes in Blood by Automated coun 4.0-11.0 [facility] Lymphocytes Auto (Bld) [#/Vo l]on 08-25-2024 Lymphocytes (Bld) [#/Vol] Lymphocytes [#/volume] in Blood by Automated count 1.2-3.8 [facility] Lymphocytes/100 WBC Auto (Bl d)on 08-25-2024 Lymphocytes/100 WBC (Bld) Lymphocytes/100 leukocytes in Blood by Automated count Low 20.5-60.0 [facility] MCH Auto (RBC) [Entitic mass ]on 08-25-2024 MCH (RBC) [Entitic mass] MCH [Entitic mass] by Automated count 26.7-34.0 [facility] MCHC Auto (RBC) [Mass/Vol]on 08-25-2024 MCHC (RBC) [Mass/Vol] MCHC [Mass/volume] by Automated count 29.9-35.2 [facility] MCV Auto (RBC) [Entitic vol] on 08-25-2024 MCV (RBC) [Entitic vol] MCV [Entitic volume] by Automated count 81.0-99.0 [facility] Monocytes Auto (Bld) [#/Vol] on 08-25-2024 Monocytes (Bld) [#/Vol] Automated blood monocyte count 0.3-0.8 [facility] Monocytes/100 WBC Auto (Bld) on 08-25-2024 Monocytes/100 WBC (Bld) Automated monocyte % 1.7-12.0 [facility] Neutrophils Auto (Bld) [#/Vo l]on 08-25-2024 Neutrophils (Bld) [#/Vol] Neutrophils [#/volume] in Blood by Automated count High 1.4-6.5 [facility] Neutrophils/100 WBC Auto (Bl d)on 08-25-2024 Neutrophils/100 WBC (Bld) Automated neutrophil % 43.0-75.0 [facility] No Panel Informationon 08-25 Eosinophils # (Auto) 0.1 10 3/uL 0.0-0.7 [facility] Immature Granulocyte # (Auto) 0.03 10 3/uL 0.00-0.03 [facility] Platelet mean volume Auto (B ld) [Entitic vol]on 08-25-2024 Platelet mean volume (Bld) [Entitic vol] Platelet mean volume [Entitic volume] in Blood by Automated count 9.5-13.5 [facility] Platelets Auto (Bld) [#/Vol] on 08-25-2024 Platelets (Bld) [#/Vol] Platelets [#/volume] in Blood by Automated count 150-450 [facility] RBC Auto (Bld) [#/Vol]on RBC (Bld) [#/Vol] Erythrocytes [#/volu me] in Blood by Automated count Low 4.20-5.40 [facility] Urinalysis macro (dipstick) panel (U)on 08-23-2024 Bilirubin, UA Negative Negative - 4(70) +++ mg/dL [facility] Blood, UA Negative Negative - 50 Dain/mcL [facility] Clarity, UA Clear [facility] Color, UA Yellow [facility] Glucose, UA Negative Negative - 1999(110) ++++ mg/dL [facility] Interpretation and review of laboratory results Abnormal [facility] Ketones, UA Negative Negative - 160(16) ++++ mg/dL [facility] Leukocytes, UA Positive Negative - 500+++ Chaparrita/mcL [facility] Comment on above: small Nitrite, UA Negative Negative - Positive [facility] pH, UA 7 5 - 9 [facility] Protein, UA Negative Negative - 1999(20) ++++ mg/dL [facility] Spec Grav, UA 1.02 1 - 1.03 [facility] Urobilinogen, UA 0.2 0.2 - 12 mg/dL [facility] Thyroid Stimulating Hormoneo n 07-31-2024 TSH Qn 2.07 m[IU]/L Normal 0.45-5.33 [facility] Comment on above: Result Comment: PERF ORMED BY: [facility] [address] [place] [address] PATHOLOGIST MANAGER CUSTOM MIS SCHMIDT M.D. Performed By: #### T SH3 ####[facility] [id number] [facility] Thyrotropin [Units/volume] i n Serum or PlasmaOrdered By: Brain Way on 07-31-2024 TSH Qn Thyrotropin [Units/v olume] in Serum or Plasma 0.45-5.33 [facility] Urinalysis macro (dipstick) panel (U)on 07-11-2024 Bilirubin, UA Negative Negative - 4(70) +++ mg/dL [facility] Blood, UA Negative Negative - 50 Dain/mcL [facility] Clarity, UA Clear [facility] [facility] Color, UA Yellow [facility] Glucose, UA Negative Negative - 1999(110) ++++ mg/dL [facility] Interpretation and review of laboratory results Abnormal [facility] Ketones, UA Negative Negative - 160(16) ++++ mg/dL [facility] Leukocytes, UA Trace Negative - 500+++ Chaparrita/mcL [facility] Nitrite, UA Negative Negative - Positive [facility] pH, UA 6 5 - 9 [facility] Protein, UA Negative Negative - 2000(20) ++++ mg/dL [facility] Spec Grav, UA 1.01 1 - 1.03 [facility] Urobilinogen, UA 0.2 0.2 - 12 mg/dL [facility] Alpha-fetoprotein (AFP) luis urement (pxbprhhy-ev-fhdevg)Ordered By: Brain Way on 06-28-2024 AFP [MoM] Alpha-fetoprotein (A FP) measurement (zgfjrfbx-cy-ogtlgu) . [facility] Determination of gestational ageOrdered By: Brain Way on 06-28-2024 Gestational age Assess gestational age . [facility] Estimation of maternal age-s pecific risk of Down syndrome birthOrdered By: Brain Way on 06-28-2024 Age [Time] Estimation of matern al age-specific risk of Down syndrome . [facility] Human chorionic gonadotropin (hCG) multiple of median measurementOrdered By: Brain Way on 06-28-2024 HCG [MoM] Human chorionic gonadotropin (hCG) multiple of median measurement . [facility] Insulin dependent diabetes m ellitus detectionOrdered By: Brain Way on 06-28-2024 Insulin dependent diabetes mellitus Ql Insulin dependent diabetes mellitus detection . [facility] Interpretation of serum or p lasma second trimester quad maternal screen (narrative reOrdered By: Brain Way on 06-28-2024 Second trimester quad maternal screen Mathew [Interp] Interpretation of serum or plasma second trimester quad maternal screen (narrative re . [facility] Comment on above: Interpretation:An in terpretation CANNOT be provided for this patientbecause necessary patient information was not provided (oneor more of: gestational age, weight, or patient age).Please call us with new clinical information.Recalculations are not recommended when gestational datingby LMP and ultrasound are within 10 days. No Panel InformationOrdered By: Brain Way on 06-28-2024 AFP Triple Screen Comment Comment . [facility] Comment on above: Stephanie Pinto , Ph.D., DABCCDirectorReferences: Available Upon Request.Multiples Of Median Cutoffs Abbreviation Definitions For AFP Elevations IDD- Insulin Dep DiabetesSingleton 2.5 Black 2.8 OSBR- Open Spina BifidaIDD 2.0 Twins 4.5 RiskDSR Cutoff 1:270 DSR- Down Syndrome RiskT18 Cutoff 1:100 T18- Trisomy 18For further inquiries contact [facility] Servicesat [phone].This test was developed and its performance characteristicsdetermined by [employer]. It has not been cleared or approvedby the Food and Drug Administration.Performed at: [facility] [id number] [place], [place] [id number] Director: Aubrey Moreno [facility], Phone: [phone] Alpha Fetoprotein Results Received Report . [facility] Down Syndrome Age Equivalent See interpretation. . [facility] Gestational Age Calculation Method Ultrasound . [facility] Comment on above: 18:5 on 06/12/2024 Maternal Quad Test Risk See interpretation. . [facility] Maternal Race . [facility] Multiple No . [facility] Serum or plasma wzqci-6-cljk protein measurement (mass/volume)Ordered By: Brain Way on 06-28-2024 AFP [Mass/Vol] Serum or plasma qknuy-6-jsbecrvunci measurement (mass/volume) . [facility] Serum or plasma inhibin A me asurement (adjusted ryjeehbo-si-eryfws)Ordered By: Brain Way on 06-28-2024 Inhibin A adjusted [MoM] Serum or plasma inhibin A measurement (adjusted afgpttjb-xj-hbermt) . [facility] Serum or plasma inhibin A me asurement (mass/volume)Ordered By: Brain Way on 06-28-2024 Inhibin A [Mass/Vol] Inhibin A [Mass/vol ume] in Serum or Plasma . [facility] Serum or plasma total combin ed intact choriogonadotropin and beta subunit measurementOrdered By: Brain Way on 06-28-2024 HCG.intact+Beta subunit Qn Serum or plasma total combined intact choriogonadotropin and beta subunit measurement . [facility] Serum or plasma unconjugated estriol (E3) measurement (adjusted zipvjbbp-ov-vqnful)Ordered By: Brain Way on 06-28-2024 E3.unconjugated adjusted [MoM] Serum or plasma unconjugated estriol (E3) measurement (adjusted ntrmmmmg-ha-rgckuh) . [facility] Serum or plasma unconjugated estriol (E3) measurement (mass/volume)Ordered By: Brain Way on 06-28-2024 E3.unconjugated [Mass/Vol] Serum or plasma unconjugated estriol (E3) measurement (mass/volume) . [facility] Thyroid Stimulating Hormoneo n 06-28-2024 TSH Qn 3.44 m[IU]/L Normal 0.45-5.33 [facility] Comment on above: Result Comment: PERF ORMED BY: [place] [address] PATHOLOGIST MANAGER CUSTOM JORDI SMITH M.D. Performed By: #### T SH3 #### [address] Thyrotropin [Units/volume] i n Serum or PlasmaOrdered By: Brain Way on 06-28-2024 TSH Qn Thyrotropin [Units/v olume] in Serum or Plasma 0.45-5.33 [facility] Trisomy 21 risk determinatio n in fetusOrdered By: Brain Way on 06-28-2024 Trisomy 21 risk Qn (fetus) Trisomy 21 risk determination in fetus . [facility] US OB >= 14 weeks Fetuson US OB >= 14 weeks Fetus [facility] [address] Ultrasound Report Signed Patient: Tawnya Herring MR#: [id number] 29 : 1995 Acct:[id number] Age/Sex: 28 / F ADM Date: 06/22/24 Loc: Room: Type: [facility] Attending Dr: Brain Way DO Ordering Provider: Brain Way Date of Service: 06/22/24 US/US OB >= 14 weeks Fetus: Z36.89 Copies to: Brain Seamus OB ultrasound. Reason for exam:Anatomy and cervical length. Comparison:None Technique: Transabdominal imaging of the gravid uterus was obtained. Findings: Single live intrauterine measuring 20 weeks 1 day by anatomic measurements. Appropriate growth by dating per technologist's sheet. heart rate 144 bpm. presentation is vertex. Anterior location of the placenta is seen with a presumed placental golden noted. LIEN is normal at 14.42 cm. Cervical length is 5.9 cm without evidence of funneling. survey demonstrates no definite congenital abnormality. Four-chamber heart is noted. The umbilical cord, brain and spine are suboptimally visualized. The following measurements were obtained: BPD 4.68 cm gestation: 20w2d weeks/days head circumference 16.78 cm gestation: 19w4d weeks/days abd. circumference 15.01 cm gestation: 20w2d weeks/days femur length 3.28 cm gestation: 20w2d weeks/days US/US OB >= 14 weeks Fetus Impression: Single live intrauterine measuring 20 weeks 1 day by CRL. Appropriate growth by dating. Spine, brain and umbilical cord are suboptimally visualized. Repeat ultrasound in one to 2 weeks is suggested to complete the survey. No abnormalities seen on today's study. Normal LIEN. Normal cervical length. Impression dictated by: Zay Norton Jr., D.O.06/22/2024 4:00 PM Dictation Location: [place] Tech: Rae De Paz Transcribed By: AGUILAR 06/22/24 1600 Dictated By: Zay Norton Jr, DO 06/22/24 1552 Signed By: 06/22/24 1600 Normal [facility] Urinalysis macro (dipstick) panel (U)on 06-12-2024 Bilirubin, UA Negative Negative - 4(70) +++ mg/dL [facility] Blood, UA Negative Negative - 50 Dain/mcL [facility] Clarity, UA Clear [facility] Color, UA Yellow [facility] Glucose, UA Negative Negative - 2000(110) ++++ mg/dL [facility] Interpretation and review of laboratory results Abnormal [facility] Ketones, UA Negative Negative - 160(16) ++++ mg/dL [facility] Leukocytes, UA Positive Negative - 500+++ Chaparrita/mcL [facility] Comment on above: small Nitrite, UA Negative Negative - Positive [facility] pH, UA 6 5 - 9 [facility] Protein, UA Negative Negative - 1999(20) ++++ mg/dL [facility] Spec Grav, UA 1.025 1 - 1.03 [facility] Urobilinogen, UA 1.0 0.2 - 12 mg/dL [facility] Thyrotropin [Units/volume] i n Serum or PlasmaOrdered By: Brain Way on 05-24-2024 TSH Qn 2.42 m[IU]/L Normal 0.45-5.33 [facility] Comment on above: Result Comment: PERF ORMED BY: [place] [address] PATHOLOGIST MANAGER CUSTOM JORDI SMITH M.D. Performed By: #### T SH3 #### [address] TSH Qn Thyrotropin [Units/v olume] in Serum or Plasma 0.45-5.33 [facility] Urinalysis macro (dipstick) panel (U)on 05-10-2024 Bilirubin, UA Negative Negative - 4(70) +++ mg/dL [facility] Blood, UA Negative Negative - 50 Dain/mcL [facility] Clarity, UA Clear [facility] Color, UA Yellow [facility] Glucose, UA Negative Negative - 1999(110) ++++ mg/dL [facility] Interpretation and review of laboratory results Normal [facility] Ketones, UA Negative Negative - 160(16) ++++ mg/dL [facility] Leukocytes, UA Negative Negative - 500+++ Chaparrita/mcL [facility] Nitrite, UA Negative Negative - Positive [facility] pH, UA 6.5 5 - 9 [facility] Protein, UA Negative Negative - 1999(20) ++++ mg/dL [facility] Spec Grav, UA 1.020 1 - 1.03 [facility] Urobilinogen, UA 1.0 0.2 - 12 mg/dL [facility] IGP,APTIMA HPV,AGE GDLNon AGE GDLN ACOG TESTING Note . [facility] Comment on above: TESTS RESULT FLAG UN ITS REF RANGE LAB Clinician Provided Cytology Information Source.............Cervix No. of containers..01 ThinPrep Vial Age Shweta BARLOW Mariel... FLAG LEGEND: L-Low Normal,H-High Normal,LL-Alert Low,HH-Alert High <-Panic Low,>-Panic High,A-Abnormal,AA-Critical Abnormal Performed at: 01 =G [address] [address] Christelle Galan MD, IGP, RFX APTIMA HPV ASCU Note . [facility] Comment on above: TESTS RESULT FLAG UN ITS REF RANGE LAB DIAGNOSIS: 02 NEGATIVE FOR INTRAEPITHELIAL LESION OR MALIGNANCY. Specimen adequacy: 02 Satisfactory for evaluation. Endocervical and/or squamous metaplastic cells (endocervical component) are present. Performed by: Sanjiv Ornelas, Inside Upholsterer . 02 Note: Note 02 The Pap smear is a screening test designed to aid in the detection of premalignant and malignant conditions of the uterine cervix. It is not a diagnostic procedure and should not be used as the sole means of detecting cervical cancer. Both false-positive and false-negative reports do occur. Test Methodology: Note 02 This liquid based ThinPrep(R) pap test was screened with the use of an image guided system. . 02 The HPV DNA reflex criteria were not met with this specimen result therefore, no HPV testing was performed. FLAG LEGEND: L-Low Normal,H-High Normal,LL-Alert Low,HH-Alert High <-Panic Low,>-Panic High,A-Abnormal,AA-Critical Abnormal Performed at: [address] [address] Christelle Galan MD, Performed at: = - [address] [id number] Manager Mission: Christelle Galan MD, Phone: [phone] Performed at: [address] [id number] Manager Mission: Christelle Galan MD, Phone: [phone] [facility] URETHRITIS/DISCHARGE PLUS VA GINITIS (HTRX)on 04-22-2024 ATOPOBIUM VAGINAE 0.000 [facility] ATOPOBIUM VAGINAE Not detected [facility] BVAB 2,3 (BACTERIAL VAGINOSIS ASSOCIATED BACTERIA 2, 3); MOBILUNCUS SPP 24.821 Abnormal [facility] BVAB 2,3 (BACTERIAL VAGINOSIS ASSOCIATED BACTERIA 2, 3); MOBILUNCUS SPP Detected Abnormal [facility] JANET ALBICANS, PARAPSILOSIS, TROPICALIS 0.000 [facility] JANET ALBICANS, PARAPSILOSIS, TROPICALIS Not detected [facility] JANET GLABRATA 0.000 [facility] JANET GLABRATA Not detected [facility] JANET KRUSEI 0.000 [facility] JANET KRUSEI Not detected [facility] CHLAMYDIA TRACHOMATIS 0.000 [facility] CHLAMYDIA TRACHOMATIS Not detected N [facility] GARDNERELLA VAGINALIS 0.000 [facility] GARDNERELLA VAGINALIS Not detected N [facility] Interpretation and review of laboratory results Abnormal [facility] MEGASPHAERA (TYPES 1, 2) 0.000 [facility] MEGASPHAERA (TYPES 1, 2) Not detected [facility] MYCOPLASMA GENITALIUM 0.000 [facility] MYCOPLASMA GENITALIUM Not detected N [facility] NEISSERIA GONORRHOEAE 0.000 [facility] NEISSERIA GONORRHOEAE Not detected N [facility] TRICHOMONAS VAGINALIS 0.000 [facility] TRICHOMONAS VAGINALIS Not detected N [facility] Urinalysis macro (dipstick) panel (U)on 04-20-2024 Bilirubin, UA Negative Negative - 4(70) +++ mg/dL [facility] Blood, UA Positive Negative - 50 Dain/mcL [facility] Comment on above: trace-intact Clarity, UA Clear [facility] Color, UA Yellow [facility] Glucose, UA Negative Negative - 2000(110) ++++ mg/dL [facility] Interpretation and review of laboratory results Abnormal [facility] Ketones, UA Negative Negative - 160(16) ++++ mg/dL [facility] Leukocytes, UA Trace Negative - 500+++ Chaparrita/mcL [facility] Nitrite, UA Negative Negative - Positive [facility] pH, UA 6.0 5 - 9 [facility] Protein, UA Negative Negative - 2000(20) ++++ mg/dL [facility] Spec Grav, UA 1.030 1 - 1.03 [facility] Urobilinogen, UA 0.2 0.2 - 12 mg/dL [facility] CBC without diffon Hematocrit (Bld) [Volume fraction] 37.3 % [facility] Hemoglobin (Bld) [Mass/Vol] 13.3 g/dL [facility] Rbc Mcv (Fl) By Automated Count 92.1 [facility] No Panel Informationon 04-13 [facility] Rubella IGG immune statuson 04-13-2024 Rubella immune IgG 1.33 [facility] Syphilis Total(Unknown Syphi lis Status)on 04-13-2024 Syphilis Non-Reactive [facility] TBH BOX TEST SENT OUTon 03-17 BOX TEST SENT OUT 04/13/24 [facility] Drug Screen, Urineon 024 Amphetamine/Methamphe tamine Negative [facility] Barbiturate Screen Urine Negative [facility] Benzodiazepine Screen, Urine Negative [facility] Cocaine Metabolite Negative [facility] Methadone,Meconium Negative [facility] Opiate Quantitative Urine Negative [facility] Oxycodone Negative [facility] Phencyclidine Negative [facility] Thc Marijuana, Urine Negative [facility] HCG ( test) Ql (U)o n 04-07-2024 Interpretation and review of laboratory results Abnormal [facility] Preg Test, Ur Positive [facility] Urinalysis macro (dipstick) panel (U)on 04-07-2024 Bilirubin, UA Negative Negative - 4(70) +++ mg/dL [facility] Blood, UA Negative Negative - 50 Dain/mcL [facility] Clarity, UA Clear [facility] Color, UA Yellow [facility] Glucose, UA Negative Negative - 1999(110) ++++ mg/dL [facility] Interpretation and review of laboratory results Abnormal [facility] Ketones, UA Negative Negative - 160(16) ++++ mg/dL [facility] Leukocytes, UA Positive Negative - 500+++ Chaparrita/mcL [facility] Comment on above: small Nitrite, UA Negative Negative - Positive [facility] pH, UA 7.0 5 - 9 [facility] Protein, UA Negative Negative - 1999(20) ++++ mg/dL [facility] Spec Grav, UA 1.025 1 - 1.03 [facility] Urobilinogen, UA 0.2 0.2 - 12 mg/dL [facility] Automated basophil %Ordered By: Addi Ortega on 04-06-2024 Basophils/100 WBC (Bld) 0.2 % Normal . [facility] Comment on above: Performed By: #### P ILLAR TSH, PILLAR LIPID, PILLAR CBC, PILLAR BMP #### [facility] [address] Automated basophil countOrde red By: Addi Ortega on 04-06-2024 Basophils (Bld) [#/Vol] 0.0 10*3/uL Normal 0.0-0.2 [facility] Comment on above: Result Comment: PERF ORMED BY: [place] [address] PATHOLOGIST MANAGER CUSTOM JORDI SMITH M.D. Performed By: #### P ILLAR TSH, PILLAR LIPID, PILLAR CBC, PILLAR BMP #### [address] Automated blood monocyte cou ntOrdered By: Addi Ortega on 04-06-2024 Monocytes (Bld) [#/Vol] 0.5 10*3/uL Normal 0.0-0.8 [facility] Comment on above: Performed By: #### P ILLAR TSH, PILLAR LIPID, PILLAR CBC, PILLAR BMP #### [address] Automated eosinophil %Ordere d By: Addi Ortega on 04-06-2024 Eosinophils/100 WBC (Bld) 0.5 % Normal . [facility] Comment on above: Performed By: #### P ILLAR TSH, PILLAR LIPID, PILLAR CBC, PILLAR BMP #### [facility] [address] [place] [address] Automated eosinophil countOr dered By: Addi Ortega on 04-06-2024 Eosinophils (Bld) [#/Vol] 0.0 10*3/uL Normal 0.0-0.45 [facility] Comment on above: Performed By: #### P ILLAR TSH, PILLAR LIPID, PILLAR CBC, PILLAR BMP #### [facility] [address] [place] [address] Automated monocyte %Ordered By: Addi Ortega on 04-06-2024 Monocytes/100 WBC (Bld) 5.6 % Normal . [facility] Comment on above: Performed By: #### P ILLAR TSH, PILLAR LIPID, PILLAR CBC, PILLAR BMP #### [facility] [address] [place] [address] Automated neutrophil %Ordere d By: Addi Ortega on 04-06-2024 Neutrophils/100 WBC (Bld) 64.9 % Normal . [facility] Comment on above: Performed By: #### P ILLAR TSH, PILLAR LIPID, PILLAR CBC, PILLAR BMP #### [facility] [address] [place] [address] [place] Basophils Auto (Bld) [#/Vol] Ordered By: Addi Ortega on 04-06-2024 Basophils (Bld) [#/Vol] Automated basophil count 0.0-0.2 [facility] Basophils/100 WBC Auto (Bld) Ordered By: Addi Ortega on 04-06-2024 Basophils/100 WBC (Bld) Automated basophil % . [facility] Calcium [Mass/volume] in Ser um or PlasmaOrdered By: Addi Ortega on 04-06-2024 Calcium [Mass/Vol] 8.9 mg/dL Normal 8.6-10.3 [facility] Comment on above: Performed By: #### P ILLAR TSH, PILLAR LIPID, PILLAR CBC, PILLAR BMP #### [place] [id number] [facility] Calcium [Mass/Vol] Calcium [Mass/volume ] in Serum or Plasma 8.6-10.3 [facility] Carbon dioxide, total [Moles /volume] in Serum or PlasmaOrdered By: Addi Ortega on 04-06-2024 CO2 [Moles/Vol] 22.0 mmol/L Normal 21.0-31.0 [facility] Comment on above: Performed By: #### P ILLAR TSH, PILLAR LIPID, PILLAR CBC, PILLAR BMP #### [place] [id number] [facility] CO2 [Moles/Vol] Carbon dioxide, tota l [Moles/volume] in Serum or Plasma 21.0-31.0 [facility] Chloride [Moles/volume] in S ghada or PlasmaOrdered By: Addi Ortega on 04-06-2024 Chloride [Moles/Vol] 106 mmol/L Normal 98-107 [facility] Comment on above: Performed By: #### P ILLAR TSH, PILLAR LIPID, PILLAR CBC, PILLAR BMP #### [facility] [address] [place] [address] [place] Chloride [Moles/Vol] Chloride [Moles/vol ume] in Serum or Plasma 98-107 [facility] Cholesterol [Mass/volume] in Serum or PlasmaOrdered By: Addi Ortega on 04-06-2024 Cholesterol [Mass/Vol] 159 mg/dL Normal 140-200 [facility] Comment on above: Chol less than 200 m g/dl low riskChol 201-239 mg/dl borderline riskChol 240 mg/dl and greater high risk Result Comment: Chol less than 200 mg/dl low risk Chol 201-239 mg/dl borderline risk Chol 240 mg/dl and greater high risk Performed By: #### P ILLAR TSH, PILLAR LIPID, PILLAR CBC, PILLAR BMP #### [facility] [address] [place] [address] [place] Cholesterol [Mass/Vol] Cholesterol [Mass/volume] in Serum or Plasma 140-200 [facility] Comment on above: Chol less than 200 m g/dl low riskChol 201-239 mg/dl borderline riskChol 240 mg/dl and greater high risk Cholesterol in HDL [Mass/vol ume] in Serum or PlasmaOrdered By: Addi Ortega on 04-06-2024 Cholesterol in HDL [Mass/Vol] Serum or plasma high density lipoprotein (HDL) cholesterol measurement 23- [facility] Comment on above: HDL CHOL ATP-III CLA SSIFICATION Cardiovascular RiskHDL > or equal to 60 mg/dL LOWHDL < 40 mg/dL HIGH Cholesterol in LDL Calc [Mas s/Vol]Ordered By: Addi Ortega on 04-06-2024 Cholesterol in LDL [Mass/Vol] 95 mg/dL 0-100 [facility] Comment on above: LDL ATP III CLASSIFI CATIONLDL less than 100 mg/dL OptimalLDL 100-129 mg/dL Near or above optimalLDL 130-159 mg/dL Borderline highLDL 160-189 mg/dL HighLDL greater than 189 mg/dL Very high Cholesterol in LDL [Mass/Vol] Cholesterol in LDL [Mass/volume] in Serum or Plasma by calculation 0-100 [facility] Comment on above: LDL ATP III CLASSIFI CATIONLDL less than 100 mg/dL OptimalLDL 100-129 mg/dL Near or above optimalLDL 130-159 mg/dL Borderline highLDL 160-189 mg/dL HighLDL greater than 189 mg/dL Very high Cholesterol in VLDL Calc [Ma ss/Vol]Ordered By: Addi Ortega on 04-06-2024 Cholesterol in VLDL [Mass/Vol] 15 mg/dL [facility] Cholesterol in VLDL [Mass/Vol] Cholesterol in VLDL [Mass/volume] in Serum or Plasma by calculation [facility] Creatinine [Mass/volume] in Serum or PlasmaOrdered By: Addi Ortega on 04-06-2024 Creatinine [Mass/Vol] 0.44 mg/dL Low 0.60-1.20 [facility] Comment on above: Performed By: #### P ILLAR TSH, PILLAR LIPID, PILLAR CBC, PILLAR BMP #### [address] Creatinine [Mass/Vol] Creatinine [Mass/v olume] in Serum or Plasma Low 0.60-1.20 [facility] Employee Basic Metabolic Suero nargis 04-06-2024 GFR/1.73 sq M.predicted MDRD (S/P/Bld) [Vol rate/Area] mL/min/{1.73_m2} Normal [facility] Comment on above: Performed By: #### P ILLAR TSH, PILLAR LIPID, PILLAR CBC, PILLAR BMP #### [address] Employee Complete Blood Coun ton 04-06-2024 Mean Corpuscular HGB Conc 35.4 g/dL High 32.0-35.0 [facility] Comment on above: Performed By: #### P ILLAR TSH, PILLAR LIPID, PILLAR CBC, PILLAR BMP #### [address] NRBC% 0.0 /100{WBC} Normal 0-0.5 [facility] Comment on above: Performed By: #### P ILLAR TSH, PILLAR LIPID, PILLAR CBC, PILLAR BMP #### [address] Employee Lipid Profileon LDL Cholesterol,Calculate d 95 mg/dL Normal 0-100 [facility] Comment on above: Result Comment: LDL ATP III CLASSIFICATION LDL less than 100 mg/dL Optimal LDL 100-129 mg/dL Near or above optimal LDL 130-159 mg/dL Borderline high LDL 160-189 mg/dL High LDL greater than 189 mg/dL Very high Performed By: #### P ILLAR TSH, PILLAR LIPID, PILLAR CBC, PILLAR BMP #### [facility] [address] Triglyceride w/Reflex 79 mg/dL Normal 0-149 [facility] Comment on above: Result Comment: TRIG ATP III CLASSIFICATION TRIG less than 150 mg/dL Normal TRIG 150-199 mg/dL Borderline high TRIG 200-500 mg/dL High TRIG greater than 500 mg/dL Very high Standard traceable to the Center for Disease Conrtrol and Prevention (CDC) test method. Performed By: #### P ILLAR TSH, PILLAR LIPID, PILLAR CBC, PILLAR BMP #### [facility] [address] VLDL CHOLESTEROL 15 mg/dL Normal The [facility] Comment on above: Performed By: #### P ILLAR TSH, PILLAR LIPID, PILLAR CBC, PILLAR BMP #### [facility] [address] Employee Thyroid Stim Hormon gokul 04-06-2024 Employee Thyroid Stim Hormone 2.72 u[iU]/mL Normal 0.45-5.33 [facility] Comment on above: Result Comment: PERF ORMED BY: [place] [address] PATHOLOGIST MANAGER CUSTOM JORDI SMITH M.D. Performed By: #### P ILLAR TSH, PILLAR LIPID, PILLAR CBC, PILLAR BMP #### [facility] [address] [place] [address] [place] Eosinophils Auto (Bld) [#/Vo l]Ordered By: Addi Ortega on 04-06-2024 Eosinophils (Bld) [#/Vol] Automated eosinophil count 0.0-0.45 [facility] Eosinophils/100 WBC Auto (Bl d)Ordered By: Addi Ortega on 04-06-2024 Eosinophils/100 WBC (Bld) Automated eosinophil % . [facility] Erythrocyte distribution wid th Auto (RBC) [Ratio]Ordered By: Addi Ortega on 04-06-2024 Erythrocyte distribution width (RBC) [Ratio] Erythrocyte distribution width [Ratio] by Automated count 11.9-15.3 [facility] Erythrocyte distribution wid th [Ratio] by Automated countOrdered By: Addi Ortega on 04-06-2024 Erythrocyte distribution width (RBC) [Ratio] 12.7 % Normal 11.9-15.3 [facility] Comment on above: Performed By: #### P ILLAR TSH, PILLAR LIPID, PILLAR CBC, PILLAR BMP #### [facility] [address] [place] [address] [place] Erythrocytes [#/volume] in B lood by Automated countOrdered By: Addi Ortega on 04-06-2024 RBC (Bld) [#/Vol] 4.04 10*6/uL Normal 3.60-5.00 [facility] Comment on above: Performed By: #### P ILLAR TSH, PILLAR LIPID, PILLAR CBC, PILLAR BMP #### [facility] [address] [place] [address] [place] Glucose [Mass/volume] in Ser um or PlasmaOrdered By: Addi Ortega on 04-06-2024 Glucose [Mass/Vol] 82 mg/dL Normal 70-100 [facility] Comment on above: Performed By: #### P ILLAR TSH, PILLAR LIPID, PILLAR CBC, PILLAR BMP #### [facility] [address] [place] [address] [place] Glucose [Mass/Vol] Glucose [Mass/volume ] in Serum or Plasma 70-100 [facility] Hematocrit Auto (Bld) [Volum e fraction]Ordered By: Addi Ortega on 04-06-2024 Hematocrit (Bld) [Volume fraction] Hematocrit [Volume Fraction] of Blood by Automated count 34.0-46.4 [facility] Hematocrit [Volume Fraction] of Blood by Automated countOrdered By: Addi Ortega on 08-22-2024 Hematocrit (Bld) [Volume fraction] 37.6 % Normal 34.0-46.4 [facility] Comment on above: Performed By: #### P ILLAR TSH, PILLAR LIPID, PILLAR CBC, PILLAR BMP #### [facility] [address] Hemoglobin [Mass/volume] in BloodOrdered By: Addi Ortega on 04-06-2024 Hemoglobin (Bld) [Mass/Vol] 13.3 g/dL Normal 11.8-15.4 [facility] Comment on above: Performed By: #### P ILLAR TSH, PILLAR LIPID, PILLAR CBC, PILLAR BMP #### [facility] [address] Hemoglobin (Bld) [Mass/Vol] Hemoglobin [Mass/volume] in Blood 11.8-15.4 [facility] Leukocytes [#/volume] correc hamilton for nucleated erythrocytes in Blood by Automated counOrdered By: Addi Ortega on 04-06-2024 WBC corrected for nucl RBC Auto (Bld) [#/Vol] 8.9 10*3/uL 3.8-11.6 [facility] WBC corrected for nucl RBC Auto (Bld) [#/Vol] Leukocytes [#/volume] corrected for nucleated erythrocytes in Blood by Automated coun 3.8-11.6 [facility] Leukocytes [#/volume] in Blo od by Automated countOrdered By: Addi Ortega on 04-06-2024 WBC (Bld) [#/Vol] 8.9 10*3/uL Normal 3.8-11.6 [facility] Comment on above: Performed By: #### P ILLAR TSH, PILLAR LIPID, PILLAR CBC, PILLAR BMP #### [facility] [address] Lymphocytes Auto (Bld) [#/Vo l]Ordered By: Addi Ortega on 04-06-2024 Lymphocytes (Bld) [#/Vol] Lymphocytes [#/volume] in Blood by Automated count 1.00-4.8 [facility] Lymphocytes [#/volume] in Bl ood by Automated countOrdered By: Addi Ortega on 04-06-2024 Lymphocytes (Bld) [#/Vol] 2.5 10*3/uL Normal 1.00-4.8 [facility] Comment on above: Performed By: #### P ILLAR TSH, PILLAR LIPID, PILLAR CBC, PILLAR BMP #### [facility] [address] Lymphocytes/100 WBC Auto (Bl d)Ordered By: Addi Ortega on 04-06-2024 Lymphocytes/100 WBC (Bld) Lymphocytes/100 leukocytes in Blood by Automated count . [facility] Lymphocytes/100 leukocytes i n Blood by Automated countOrdered By: Addi Ortega on 04-06-2024 Lymphocytes/100 WBC (Bld) 28.8 % Normal . [facility] Comment on above: Performed By: #### P ILLAR TSH, PILLAR LIPID, PILLAR CBC, PILLAR BMP #### [facility] [address] [place] [address] MCH Auto (RBC) [Entitic mass ]Ordered By: Addi Ortega on 04-06-2024 MCH (RBC) [Entitic mass] MCH [Entitic mass] by Automated count 24.7-34.3 [facility] MCH [Entitic mass] by Automa hamilton countOrdered By: Addi Ortega on 04-06-2024 MCH (RBC) [Entitic mass] 32.9 pg Normal 24.7-34.3 [facility] Comment on above: Performed By: #### P ILLAR TSH, PILLAR LIPID, PILLAR CBC, PILLAR BMP #### [facility] [address] [place] [address] MCHC Auto (RBC) [Mass/Vol]Or dered By: Addi Ortega on 04-06-2024 MCHC (RBC) [Mass/Vol] 35.4 g/dL High 32.0-35.0 [facility] MCHC (RBC) [Mass/Vol] MCHC [Mass/volume] by Automated count High 32.0-35.0 [facility] MCV Auto (RBC) [Entitic vol] Ordered By: Addi Ortega on 04-06-2024 MCV (RBC) [Entitic vol] MCV [Entitic volume] by Automated count 80-100 [facility] MCV [Entitic volume] by Auto mated countOrdered By: Addi Ortega on 04-06-2024 MCV (RBC) [Entitic vol] 93.2 fL Normal 80-100 [facility] Comment on above: Performed By: #### P ILLAR TSH, PILLAR LIPID, PILLAR CBC, PILLAR BMP #### [facility] [address] [place] [address] [place] Monocytes Auto (Bld) [#/Vol] Ordered By: Addi Ortega on 04-06-2024 Monocytes (Bld) [#/Vol] Automated blood monocyte count 0.0-0.8 [facility] Monocytes/100 WBC Auto (Bld) Ordered By: Addi Ortega on 04-06-2024 Monocytes/100 WBC (Bld) Automated monocyte % . [facility] Neutrophils Auto (Bld) [#/Vo l]Ordered By: Addi Ortega on 04-06-2024 Neutrophils (Bld) [#/Vol] Neutrophils [#/volume] in Blood by Automated count 1.8-7.7 [facility] Neutrophils [#/volume] in Bl ood by Automated countOrdered By: Addi Ortega on 04-06-2024 Neutrophils (Bld) [#/Vol] 5.8 10*3/uL Normal 1.8-7.7 [facility] Comment on above: Performed By: #### P ILLAR TSH, PILLAR LIPID, PILLAR CBC, PILLAR BMP #### [facility] [address] [place] [address] [place] Neutrophils/100 WBC Auto (Bl d)Ordered By: Addi Ortega on 04-06-2024 Neutrophils/100 WBC (Bld) Automated neutrophil % . [facility] No Panel InformationOrdered By: Addi Ortega on 04-06-2024 Estimated GFR (CKD-EPI) > 60.0 mL/Min [facility] Creatinine Clearance (Chem N/A [facility] Nucleated erythrocytes [Pres ence] in Blood by Automated countOrdered By: Addi Ortega on 04-06-2024 Nucleated RBC Auto Ql (Bld) 0.0 /100{WBC} 0-0.5 [facility] Nucleated RBC Auto Ql (Bld) Nucleated erythrocytes [Presence] in Blood by Automated count 0-0.5 [facility] Platelet mean volume Auto (B ld) [Entitic vol]Ordered By: Addi Ortega on 04-06-2024 Platelet mean volume (Bld) [Entitic vol] Platelet mean volume [Entitic volume] in Blood by Automated count 6.3-10.7 [facility] Platelet mean volume [Entiti c volume] in Blood by Automated countOrdered By: Addi Ortega on 04-06-2024 Platelet mean volume (Bld) [Entitic vol] 8.8 fL Normal 6.3-10.7 [facility] Comment on above: Performed By: #### P ILLYOSVANY TSH, PILLAR LIPID, PILLAR CBC, PILLAR BMP #### [facility] [address] [place] [address] [place] Platelets Auto (Bld) [#/Vol] Ordered By: Addi Ortega on 04-06-2024 Platelets (Bld) [#/Vol] Platelets [#/volume] in Blood by Automated count 150-450 [facility] Platelets [#/volume] in Bloo d by Automated countOrdered By: Addi Ortega on 04-06-2024 Platelets (Bld) [#/Vol] 274 10*3/uL Normal 150-450 [facility] Comment on above: Performed By: #### P ILLAR TSH, PILLAR LIPID, PILLAR CBC, PILLAR BMP #### [facility] [address] [place] [address] [place] Potassium [Moles/volume] in Serum or PlasmaOrdered By: Addi Ortega on 04-06-2024 Potassium [Moles/Vol] 4.0 mmol/L Normal 3.5-5.1 [facility] Comment on above: Performed By: #### P ILLAR TSH, PILLAR LIPID, PILLAR CBC, PILLAR BMP #### [facility] [address] [place] [address] [place] Potassium [Moles/Vol] Potassium [Moles/v olume] in Serum or Plasma 3.5-5.1 [facility] RBC Auto (Bld) [#/Vol]Ordere d By: Addi Ortega on 04-06-2024 RBC (Bld) [#/Vol] Erythrocytes [#/volu me] in Blood by Automated count 3.60-5.00 [facility] Serum or plasma anion gap de terminationOrdered By: Addi Ortega on 04-06-2024 Anion gap [Moles/Vol] 11.0 mmol/L Normal 6.0-15.0 [facility] Comment on above: Performed By: #### P ILLAR TSH, PILLAR LIPID, PILLAR CBC, PILLAR BMP #### [facility] [address] Anion gap [Moles/Vol] Serum or plasma an ion gap determination 6.0-15.0 [facility] Serum or plasma high density lipoprotein (HDL) cholesterol measurementOrdered By: Addi Ortega on 04-06-2024 Cholesterol in HDL [Mass/Vol] 48 mg/dL Normal 23-92 [facility] Comment on above: HDL CHOL ATP-III CLA SSIFICATION Cardiovascular RiskHDL > or equal to 60 mg/dL LOWHDL < 40 mg/dL HIGH Result Comment: HDL CHOL ATP-III CLASSIFICATION Cardiovascular Risk HDL > or equal to 60 mg/dL LOW HDL < 40 mg/dL HIGH Performed By: #### P ILLAR TSH, PILLAR LIPID, PILLAR CBC, PILLAR BMP #### [facility] [address] Serum or plasma total choles terol/high density lipoprotein (HDL) cholesterol mass ratOrdered By: Addi Ortega on 04-06-2024 Cholesterol.total/Cho lesterol in HDL [Mass ratio] 3.3 {ratio} Normal <5.0 [facility] Comment on above: Performed By: #### P ILLAR TSH, PILLAR LIPID, PILLAR CBC, PILLAR BMP #### [facility] [address] Cholesterol.total/Cho lesterol in HDL [Mass ratio] Serum or plasma total cholesterol/high density lipoprotein (HDL) cholesterol mass rat <5.0 [facility] Sodium [Moles/volume] in Ser um or PlasmaOrdered By: Addi Ortega on 04-06-2024 Sodium [Moles/Vol] 135 mmol/L Low 136-145 [facility] Comment on above: Performed By: #### P ILLAR TSH, PILLAR LIPID, PILLAR CBC, PILLAR BMP #### [facility] [address] Sodium [Moles/Vol] Sodium [Moles/volume ] in Serum or Plasma Low 136-145 [facility] Thyrotropin [Units/volume] i n Serum or PlasmaOrdered By: Addi Ortega on 04-06-2024 TSH Qn 2.72 m[IU]/L 0.45-5.33 [facility] TSH Qn Thyrotropin [Units/v olume] in Serum or Plasma 0.45-5.33 [facility] Triglyceride [Mass/volume] i n Serum or PlasmaOrdered By: Addi Ortega on 04-06-2024 Triglyceride [Mass/Vol] 79 mg/dL 0-149 [facility] Comment on above: TRIG ATP III CLASSIF ICATIONTRIG less than 150 mg/dL NormalTRIG 150-199 mg/dL Borderline highTRIG 200-500 mg/dL High TRIG greater than 500 mg/dL Very highStandard traceable to the Center for Disease Conrtrol and Prevention (CDC) test method. Triglyceride [Mass/Vol] Triglyceride [Mass/volume] in Serum or Plasma 0-149 [facility] Comment on above: TRIG ATP III CLASSIF ICATIONTRIG less than 150 mg/dL NormalTRIG 150-199 mg/dL Borderline highTRIG 200-500 mg/dL High TRIG greater than 500 mg/dL Very highStandard traceable to the Center for Disease Conrtrol and Prevention (CDC) test method. Urea nitrogen [Mass/volume] in Serum or PlasmaOrdered By: Addi Ortega on 04-06-2024 Urea nitrogen [Mass/Vol] 7 mg/dL Normal 03-09 [facility] Comment on above: Performed By: #### P ILLAR TSH, PILLAR LIPID, PILLAR CBC, PILLAR BMP #### [facility] [address] [place] [id number] [place] Urea nitrogen [Mass/Vol] Urea nitrogen [Mass/volume] in Serum or Plasma 03-09 [facility] WBC Auto (Bld) [#/Vol]Ordere d By: Addi Ortega on 04-06-2024 WBC (Bld) [#/Vol] Leukocytes [#/volume ] in Blood by Automated count 3.8-11.6 [facility] ED Note-Physicianon 03-20-20 ED Note-Physician ED Note-Physician [...] and Complexity of Problems Differential Diagnosis: [] [facility] Data External documents reviewed: [] My EKG [...] with the patient. Discussed follow-up with her [employer] ADVISOR which she will do. Discussed return precautions. [...] Nath In 3 days 03/21/2024 EDT [address] [place] [address]- Business (1) Additional Instructions: DARWIN JONES In 3 days [address] [place] [address] [place] [address]- [phone] Business (1) Additional Instructions: Patient Education Threatened Miscarriage Subchorionic Hematoma Attestation Patient seen and evaluated by the physician engineer first assistant. Attending physician was present in the emergency department and supervised care. This visit was performed by both the physician and an APC. I performed all aspects of the MDM as documented. This report was transcribed using voice recognition software. Every effort was made to ensure accuracy, however, inadvertently computerized price changer mistakes may be present. Appropriate [facility] (more content not included)... Normal [facility] Comment on above: Result Comment: Elec tronically Signed By: Hector Correa PA-C\.br\Date and Time Signed: 03/18/24 12:11 EDT\.br\Electronically Co-Signed By: [place]an [place] DO\.br\Date and Time Co-Signed: 03/20/24 07:17 EDT ABO/Rhon 03-18-2024 ABO/Rh Negative Invalid Interpretation Code [facility] Comment on above: Performed By: #### 2 [id number] #### [facility] [address] [place] [address] BLOOD BANKOrdered By: Nikky Brennan on 03-18-2024 ABO/Rh Interp Negative Invalid Interpretation Code [facility] BB Subsection BMPon 03-18-2024 Anion gap [Moles/Vol] 12 mmol/L Normal 6-16 [facility] Comment on above: Performed By: #### 2 [id number] #### [facility] [address] [place] [address] Calcium [Mass/Vol] 9.2 mg/dL Normal 8.9-11.1 [facility] Comment on above: Performed By: #### 2 [id number] #### [facility] [address] [place] [address] Chloride [Moles/Vol] 105 mmol/L Normal 101-111 [facility] Comment on above: Performed By: #### 2 [id number] #### [facility] [address] [place] [address] CO2 [Moles/Vol] 23 mmol/L Normal 21-31 [facility] Comment on above: Performed By: #### 2 [id number] #### [facility] [address] [place] [address] Creatinine [Mass/Vol] 0.5 mg/dL Normal 0.5-1.3 [facility] Comment on above: Performed By: #### 2 [id number] #### [facility] [address] [place] [address] Glucose [Mass/Vol] 92 mg/dL Normal 55-199 [facility] Comment on above: Performed By: #### 2 [id number] #### [facility] [address] [place] [address] Potassium [Moles/Vol] 3.8 mmol/L Normal 3.5-5.3 [facility] Comment on above: Performed By: #### 2 [id number] #### [facility] [address] [place] [address] Sodium [Moles/Vol] 136 mmol/L Normal 135-145 [facility] Comment on above: Performed By: #### 2 [id number] #### [facility] [address] [place] [address] Urea nitrogen [Mass/Vol] 9 mg/dL Normal 5-21 [facility] Comment on above: Performed By: #### 2 [id number] #### [facility] [address] [place] [address] Urea nitrogen/Creatinine [Mass ratio] 18 No Units Normal 10-20 [facility] Comment on above: Performed By: #### 2 [id number] #### [facility] [address] [place] [address] BhCG Quanton 03-18-2024 [place] [address] m[IU]/mL High 1-3 [facility] Comment on above: Result Comment: 'F N ON < 1 - 3' ' 0.2 - 1 WEEK = 5 TO 50' ' 1 - 2 WEEKS = 50 - 500' ' 2 - 3 WEEKS = 100 - 5000' ' 3 - 4 WEEKS = 500 - 07794' ' 4 - 5 WEEKS = 1000 - 01903' ' 5 - 6 WEEKS = 71089 - 240429' ' 6 - 8 WEEKS = 11973 - 305397' ' 8 - 12 WEEKS = 94144 - 611605' Performed By: #### 2 [id number] #### [facility] [address] [place] [address] CBC w/ Auto Diffon 4 Basophils/100 WBC (Bld) 0.6 % Normal 0.0-2.0 [facility] Comment on above: Performed By: #### 2 [id number] #### [facility] [address] [place] [address] Basophils/Leukocytes Auto (Bld) [Pure # fraction] 0.0 E9/L Normal 0.0-0.2 [facility] Comment on above: Performed By: #### 2 [id number] #### [facility] [address] [place] [address] Eosinophils (Bld) [#/Vol] 0.0 E9/L Normal 0.0-0.5 [facility] Comment on above: Performed By: #### 2 [id number] #### [facility] [address] [place] [address] Eosinophils/100 WBC (Bld) 0.5 % Normal 0.0-8.0 [facility] Comment on above: Performed By: #### 2 [id number] #### [facility] [address] [place] [address] Erythrocyte distribution width (RBC) [Ratio] 12.5 % Normal 10.9-14.2 [facility] Comment on above: Performed By: #### 2 [id number] #### [facility] [address] [place] [address] Hematocrit (Bld) [Volume fraction] 40.2 % Normal 34.0-46.0 [facility] Comment on above: Performed By: #### 2 [id number] #### [facility] [address] [place] [address] Hemoglobin (Bld) [Mass/Vol] 13.8 g/dL Normal 12.0-16.0 [facility] Comment on above: Performed By: #### 2 [id number] #### [facility] [address] [place] [address] Lymphocytes (Bld) [#/Vol] 2.4 E9/L Normal 1.0-4.0 [facility] Comment on above: Performed By: #### 2 [id number] #### [facility] [address] [place] [address] Lymphocytes/100 WBC (Bld) 28.4 % Normal 14.0-50.0 [facility] Comment on above: Performed By: #### 2 [id number] #### [facility] [address] [place] [address] MCH (RBC) [Entitic mass] 32.3 pg Normal 27.0-34.0 [facility] Comment on above: Performed By: #### 2 [id number] #### [facility] [address] [place] [address] MCHC (RBC) [Mass/Vol] 34.3 g/dL Normal 31.4-36.0 [facility] Comment on above: Performed By: #### 2 [id number] #### [facility] [address] [place] [address] MCV (RBC) [Entitic vol] 94.2 fL Normal 80.0-100.0 [facility] Comment on above: Performed By: #### 2 [id number] #### [facility] [address] [place] [address] Monocytes (Bld) [#/Vol] 0.4 E9/L Normal 0.2-1.0 [facility] Comment on above: Performed By: #### 2 [id number] #### [facility] [address] [place] [address] Neutrophils (Bld) [#/Vol] 5.4 E9/L Normal 2.0-7.5 [facility] Comment on above: Performed By: #### 2 [id number] #### [facility] [address] [place] [address] Neutrophils/100 WBC (Bld) 65.4 % Normal 36.0-75.0 [facility] Comment on above: Performed By: #### 2 [id number] #### [facility] [address] [place] [address] Platelet mean volume (Bld) [Entitic vol] 8.5 fL Normal 6.4-10.8 [facility] Comment on above: Performed By: #### 2 [id number] #### [facility] [address] [place] [address] Platelets (Bld) [#/Vol] 249.0 E9/L Normal 150.0-500. 0 [facility] Comment on above: Performed By: #### 2 [id number] #### [facility] [address] [place] [id number] RBC (Bld) [#/Vol] 4.3 E12/L Normal 4.3-5.9 [facility] Comment on above: Performed By: #### 2 [id number] #### [facility] [address] [place] [address]858 WBC corrected for nucl RBC Auto (Bld) [#/Vol] 8.3 E9/L Normal 4.0-11.0 [facility] Comment on above: Performed By: #### 2 [id number] #### [facility] [address] [place] [address] CHEMISTRYOrdered By: SYSTEM SYSTEM on 03-18-2024 Anion [...] Chem eGFR 131 mL/min/1.73 m2 Normal >=59mL/mi n /1.73 m2 Remisol Chem Glucose [Mass/Vol] 92 mg/dL Normal 55 - 199 mg/dL [place] [address] m[IU]/mL High 1 - 3 mIU/mL [facility]isol Chem Comment on above: Result Comment: 'F N ON < 1 - 3' ' 0.2 - 1 WEEK = 5 TO 50' ' 1 - 2 WEEKS = 50 - 500' ' 2 - 3 WEEKS = 100 - 5000' ' 3 - 4 WEEKS = 500 - 31104' ' 4 - 5 WEEKS = 1000 - 93145' ' 5 - 6 WEEKS = 49115 - 362473' ' 6 - 8 WEEKS = 65373 - 620701' ' 8 - 12 WEEKS = 86823 - 054030' Potassium [Moles/Vol] 3.8 mmol/L Normal 3.5 - 5.3 mmol/L Remisol Chem Sodium [Moles/Vol] 136 mmol/L Normal 135 - 145 mmol/L Remisol Chem Urea nitrogen [Mass/Vol] 9 mg/dL Normal 5 - 21 mg/dL Remisol Chem Urea nitrogen/Creatinine [Mass ratio] 18 mg/mg Normal 10 - 20 Remisol Chem ED Clinical Summaryon 2023 ED Clinical Summary ED Clinical Summary [place] [id number] ED Clinical Summary Person Information Name: TAWNYA HERRING [facility]ysi/[facility] Age: 28 Years : 1995 Sex: Female Language: Spanish PCP: DARWIN JONES CNP Marital Status: Single Phone: [phone] Visit Id: Visit Reason: Vaginal bleeding - [...] 03/18/2024 12:15:02 03/18/2024 12:15:02 03/18/2024 12:15:02 ADDRESS: [address] [place] [id number] [facility] DOC NOTES: MEDICAL INFORMATION: Prescriptions Given: Medications to Continue with No Changes Other Medications citalopram (CeleXA 20 mg Tab) 1 Tablets By Mouth every day. PATIENT EDUCATION INFORMATION: Instructions: Threatened Miscarriage; Subchorionic Hematoma Follow up: With: Address: When: Rogelio Nath [address] [address] Business (1) In 3 days 03/21/2024 With: Address: When: [facility] [address] [facility] [address] [phone] Business (1) In 3 days DIAGNOSIS: Subchorionic bleed; Threatened Normal [facility] ED Patient Summaryon ED Patient Summary ED Patient Summary [address] [address] Patient Discharge Instructions Person Information Name: TAWNYA HERRING Age: 28 Years Arrival Date: 03/18/2024 08:06:19 Discharge Diagnosis: Subchorionic bleed; Threatened Primary Care Physician: DARWIN JONES CNP Provider Information Primary Provider: Toan Lake DO [employer] Model Maker:None The exam and treatment you received in the Emergency Department were for an urgent problem and are not intended as complete care. It is important that you follow up with a doctor, nurse practitioner, or physician?s engineer first assistant for ongoing care. If your symptoms [...] Follow-up Instructions: With: Address: When: Rogelio Nath [address] [place] [address], [address] [address] Business (1) In 3 days 03/21/2024 With: Address: When: DARWIN JONES [address] [place] [address] [phone] Business (1) In 3 days In the event that this physician does not participate in your insurance network, please consult with your insurance company to find a nearby participating provider. Patient Education Materials: Threatened Miscarriage; Subchorionic Hematoma A MESSAGE TO ALL PATIENTS REGARDING OPIOIDS PRESCRIPTION OPIOIDS: WHAT YOU NEED TO KNOW Prescription opioids can be used to help relieve rspgokks-up-nryikr pain and are often prescribed following a [...] guidance from the Food and Drug Administration (www.fda.gov/Drugs/Resourc esForYou). ? Visit www.cdc.gov/drugoverdose to learn about the risks of opioids abuse and overdose. ? If you be (more content not included)... Normal [facility] HEMATOLOGYOrdered By: SYSTEM SYSTEM on 03-18-2024 [...] Heme Platelets (Bld) [#/Vol] 249.0 E9/L Normal 150.0 - 500.0 E9/L Remisol Heme RBC (Bld) [#/Vol] 4.3 E12/L Normal 4.3 - 5.9 E12/L Remisol Heme WBC corrected for nucl RBC Auto (Bld) [#/Vol] 8.3 E9/L Normal 4.0 - 11.0 E9/L Remisol Heme UA with Cult Rflxon 03-18-20 24 Bilirubin Ql (U) Negative Normal Negative [facility] Comment on above: Performed By: #### 4 [id number] #### [facility] [address] [place] [address] Clarity (U) Clear Normal Clear [facility] Comment on above: Performed By: #### 4 [id number] #### [facility] [address] [place] [address] Color (U) Yellow Normal Yellow [facility] Comment on above: Result Comment: Micr oscopic readings are only performed on those samples that meet specific criteria set forth by [facility]. Performed By: #### 4 [id number] #### [facility] [address] [place] [address] Epithelial cells.squamous Auto (Urine sed) [#/Area] 0-2 Invalid Interpretation Code [facility] Comment on above: Performed By: #### 4 [id number] #### [facility] [address] [place] [address] Glucose Ql (U) Negative Normal Negative [facility] Comment on above: Performed By: #### 4 [id number] #### [facility] [address] [place] [address] Hemoglobin Auto test strip (U) [Mass/Vol] 3+ mg/dL Abnormal Negative [facility] Comment on above: Performed By: #### 4 [id number] #### [facility] [address] [place] [address] Ketones Auto test strip Ql (U) Negative Normal Negative [facility] Comment on above: Performed By: #### 4 [id number] #### [facility] [address] [place] [address] Leukocyte esterase Auto test strip Ql (U) 25 Chaparrita/uL Normal Negative [facility] Comment on above: Performed By: #### 4 [id number] #### [facility] [address] [place] [address] Mucus Auto Ql (U) Trace Normal Negative [facility] Comment on above: Performed By: #### 4 [id number] #### [facility] [address] [place] [address] Nitrite Auto test strip Ql (U) Negative Normal Negative [facility] Comment on above: Performed By: #### 4 [id number] #### [facility] [address] [place] [address] pH (U) 7.5 [pH] Invalid Interpretation Code 5.0-9.0 [facility] Comment on above: Performed By: #### 4 [id number] #### [facility] [address] [place] [address] Protein Ql (U) Trace Abnormal Negative [facility] Comment on above: Performed By: #### 4 [id number] #### [facility] [address] [place] [address] RBC Ql (U) 31-75 Abnormal 0-3 [facility] Comment on above: Performed By: #### 4 [id number] #### [facility] [address] [place] [address] Specific gravity (U) [Rel density] 1.023 Invalid Interpretation Code 1.005-1.03 0 [facility] Comment on above: Performed By: #### 4 [id number] #### [facility] [address] [place] [address] Urobilinogen (U) [Mass/Vol] Negative Normal Negative [facility] Comment on above: Performed By: #### 4 [id number] #### [facility] [address] [place] [address] WBC Auto (Urine sed) [#/Area] 0-5 Normal 0-5 [facility] Comment on above: Performed By: #### 4 [id number] #### [facility] [address] [place] [address] Type of Urine collection method Clean Catch Normal [facility] Comment on above: Performed By: #### 4 [id number] #### [facility] [address] [place] [address] URINALYSISOrdered By: SYSTEM SYSTEM on 03-18-2024 Bilirubin Ql (U) Negative Normal Negativemg /dL [facility] UA Auto SS Clarity (U) Clear (03/18/24 8:17 AM) Normal Clear [facility] UA Auto SS Color (U) Yellow 1 (03/18/24 8:17 AM) Normal Yellow [facility] UA Auto SS Comment on above: Interpretive Data: M icroscopic readings are only performed on those samples that meet specific criteria set forth by [facility]. Epithelial cells.squamous Auto (Urine sed) [#/Area] 0-2 graded/HPF Invalid Interpretation Code [facility] UA Auto SS Glucose Ql (U) Negative Normal Negativemg /dL [facility] UA Auto SS Hemoglobin Auto test strip (U) [Mass/Vol] 3+ mg/dL Invalid Interpretation Code Negativemg /dL [facility] UA Auto SS Ketones Auto test strip Ql (U) Negative Normal Negativemg /dL [facility] UA Auto SS Leukocyte esterase Auto test strip Ql (U) 25 Chaparrita/uL Chaparrita/uL Normal NegativeLe u/uL [facility] UA Auto SS Mucus Auto Ql (U) Trace graded/LPF Normal Negati vegr aded/LPF [facility] UA Auto SS Nitrite Auto test strip Ql (U) Negative Normal Negativemg /dL [facility] UA Auto SS pH (U) 7.5 *NA* (03/18/24 8:17 AM) Invalid Interpretation Code 5.0 - 9.0 [facility] UA Auto SS Protein Ql (U) Trace mg/dL Invalid Interpretation Code Negativemg /dL [facility] UA Auto SS RBC Ql (U) 31-75 graded/HPF Invalid Interpretation Code 0-3graded/ HPF [facility] UA Auto SS Specific gravity (U) [Rel density] 1.023 *NA* (03/18/24 8:17 AM) Invalid Interpretation Code 1.005 - 1.030 [facility] UA Auto SS Urobilinogen (U) [Mass/Vol] Negative Normal Negativemg /dL [facility] UA Auto SS WBC Auto (Urine sed) [#/Area] 0-5 graded/HPF Normal 0-5graded/ HPF [facility] UA Auto SS URINALYSISOrdered By: Hector quiroga on 03-18-2024 UA Spec Desc Clean Catch (03/18/24 8:17 AM) Normal [facility] UA Auto SS US 1st Trimesteron 03-18-2024 US 1st Trimester Exam Date/Time: 03/18/2024 11:34 EDT Reason for Exam: vaginal bleeding;Other (please specify) Report IMPRESSION: Single live intrauterine with estimated sonographic gestational age 6 weeks, 3 days. CLINICAL HISTORY: Vaginal bleeding. FINDINGS: Transabdominal images were obtained. Uterus contains a gestational sac surrounded by decidual reaction containing a single live intrauterine , with heart rate 125 bpm. [place]-rump length 3.22 mm. Mean sac diameter 1.74 [...] Transabdominal Ultrasound Performed Transvaginal Ultrasound Performed Normal [facility] US Transvaginalon 03-18-2024 US Transvaginal Exam Date/Time: 03/18/2024 11:41 EDT Reason for Exam: Vaginal bleeding Report Please review ultrasound pelvis for ultrasound transvaginal report. Ordering Provider: Hector Correa FINAL REPORT Dictated: 03/18/2024 12:06 pm Luis Alfredo Bunch MD Signed (Electronic Signature): 03/18/2024 12:06 pm Signed by: Luis Alfredo Bunch MD Transcribed by: EDWIN Technologist: MARCOS Palma [facility] eGFRon 03-18-2024 eGFR 131 mL/min/1.73 m2 Normal >=59 [facility] Comment on above: Order Comment: Order added by Discern Expert. Performed By: #### 1 [id number] #### [facility] [address] [place] [address] Progesteroneon 02-24-2024 Progesterone 9.9 ng/mL Normal . [facility] Comment on above: Result Comment: Foll icular phase 0.1 - 0.9 Luteal phase 1.8 - 23.9 Ovulation phase 0.1 - 12.0 First trimester 11.0 - 44.3 Second trimester 25.4 - 83.3 Third trimester 58.7 - 214.0 Postmenopausal 0.0 - 0.1 Performed at: [email or web address] [id number] Manager Mission: Alexis Ashton PhD, Phone: [phone] PERFORMED BY: [place] [address] [place] [address] PATHOLOGIST MANAGER CUSTOM JORDI SMITH M.D. Performed By: #### P ANTHONY ####[facility] , Serum or plasma progesterone measurement (mass/volume)Ordered By: Brain Way on 02-24-2024 Progesterone [Mass/Vol] 9.9 ng/mL . [facility] Comment on above: Follicular phase 0.1 - 0.9 Luteal phase 1.8 - 23.9 Ovulation phase 0.1 - 12.0 First trimester 11.0 - 44.3 Second trimester 25.4 - 83.3 Third trimester 58.7 - 214.0 Postmenopausal 0.0 - 0.1Performed at: [email or web address] [id number] Director: Alexis Ashton PhD, Phone: [phone] Progesteroneon 01-24-2024 Progesterone 8.5 ng/mL Normal . [facility] Comment on above: Result Comment: Foll icular phase 0.1 - 0.9 Luteal phase 1.8 - 23.9 Ovulation phase 0.1 - 12.0 First trimester 11.0 - 44.3 Second trimester 25.4 - 83.3 Third trimester 58.7 - 214.0 Postmenopausal 0.0 - 0.1 Performed at: [address] [id number] Manager Mission: Alexis Ashton PhD, Phone: [phone] PERFORMED BY: [address] [place] [address] PATHOLOGIST MANAGER CUSTOM JORDI SMITH M.D. Performed By: #### P ANTHONY ####[facility] , Serum or plasma progesterone measurement (mass/volume)Ordered By: Brain Way on 01-24-2024 Progesterone [Mass/Vol] 8.5 ng/mL . [facility] Comment on above: Follicular phase 0.1 - 0.9 Luteal phase 1.8 - 23.9 Ovulation phase 0.1 - 12.0 First trimester 11.0 - 44.3 Second trimester 25.4 - 83.3 Third trimester 58.7 - 214.0 Postmenopausal 0.0 - 0.1Performed at: [address] [id number] Director: Alexis Ashton PhD, Phone: [phone] Progesteroneon 12-27-2023 Progesterone 13.3 ng/mL Normal . [facility] Comment on above: Result Comment: Foll icular phase 0.1 - 0.9 Luteal phase 1.8 - 23.9 Ovulation phase 0.1 - 12.0 First trimester 11.0 - 44.3 Second trimester 25.4 - 83.3 Third trimester 58.7 - 214.0 Postmenopausal 0.0 - 0.1 Performed at: [address] [id number] Manager Mission: Alexis Ashton PhD, Phone: [phone] PERFORMED BY: [address] [place] [address] PATHOLOGIST MANAGER CUSTOM JORDI SMITH M.D. Performed By: #### P ANTHONY ####[facility] , Serum or plasma progesterone measurement (mass/volume)Ordered By: Brain Way on 12-27-2023 Progesterone [Mass/Vol] 13.3 ng/mL . [facility] Comment on above: Follicular phase 0.1 - 0.9 Luteal phase 1.8 - 23.9 Ovulation phase 0.1 - 12.0 First trimester 11.0 - 44.3 Second trimester 25.4 - 83.3 Third trimester 58.7 - 214.0 Postmenopausal 0.0 - 0.1Performed at: [email or web address] [id number] Director: Alexis Ashton PhD, Phone: [phone] Progesteroneon 11-30-2023 Progesterone 16.9 ng/mL Normal . [facility] Comment on above: Result Comment: Foll icular phase 0.1 - 0.9 Luteal phase 1.8 - 23.9 Ovulation phase 0.1 - 12.0 First trimester 11.0 - 44.3 Second trimester 25.4 - 83.3 Third trimester 58.7 - 214.0 Postmenopausal 0.0 - 0.1 Performed at: [email or web address] [id number] Manager Mission: Alexis Ashton PhD, Phone: [phone] PERFORMED BY: [place] [address] [place] [address] PATHOLOGIST MANAGER CUSTOM JORDI SMITH M.D. Performed By: #### P ANTHONY ####[facility] , Serum or plasma progesterone measurement (mass/volume)Ordered By: Brain Way on 11-30-2023 Progesterone [Mass/Vol] 16.9 ng/mL . [facility] Comment on above: Follicular phase 0.1 - 0.9 Luteal phase 1.8 - 23.9 Ovulation phase 0.1 - 12.0 First trimester 11.0 - 44.3 Second trimester 25.4 - 83.3 Third trimester 58.7 - 214.0 Postmenopausal 0.0 - 0.1Performed at: [facility] [place] [id number] Director: Alexis Ashton PhD, Phone: [phone] Teresa 11-18-2023 CNOV Office Visit (ENDOMN ) -- TAWNYA HERRING ([id number]) 1995 F Date Time Provider Department 11/18/23 8:30 AM RUBY WHITTINGTON ENDOMN During your visit today, we recorded the following information about you: Pulse Blood pressure Weight Last Period 100/minute 132/92 110.7 kg 11/09/23 RamonaOdalis 11/18/2023 7:58 AM Signed Thank you for choosing the [facility] Department of Endocrinology, Diabetes and Metabolism. Did you know that you need to call 48 hours in advance of your scheduled visit, if you are unable to make your appointment? The Endocrinology and Metabolism [place] thanks you for your commitment, because patients not showing to their appointment results in a lost opportunity for patients to receive [facility] health care at the [facility]. To Cancel an appointment, please choose one of the following: - Call the Appointment Call Center at [phone] - From [employer] [facility], Go to Appointments - Cancel Appts If cancelling, consider your need to reschedule to prevent further delays in your care. 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 Normal [facility] Progesteroneon 11-01-2023 Progesterone 7.1 ng/mL Normal . [facility] Comment on above: Result Comment: Foll icular phase 0.1 - 0.9 Luteal phase 1.8 - 23.9 Ovulation phase 0.1 - 12.0 First trimester 11.0 - 44.3 Second trimester 25.4 - 83.3 Third trimester 58.7 - 214.0 Postmenopausal 0.0 - 0.1 Performed at: - [facility] [id number] Manager Mission: Alexis Ashton PhD, Phone: [phone] PERFORMED BY: [place] [address] PATHOLOGIST MANAGER CUSTOM JORDI SMITH M.D. Performed By: #### P ANTHONY #### [facility] , Serum or plasma progesterone measurement (mass/volume)Ordered By: Brain Way on 11-01-2023 Progesterone [Mass/Vol] 7.1 ng/mL . [facility] Comment on above: Follicular phase 0.1 - 0.9 Luteal phase 1.8 - 23.9 Ovulation phase 0.1 - 12.0 First trimester 11.0 - 44.3 Second trimester 25.4 - 83.3 Third trimester 58.7 - 214.0 Postmenopausal 0.0 - 0.1Performed at: [facility] [place] [id number] Director: Alexis Ashton PhD, Phone: [phone] Progesteroneon 10-01-2023 Progesterone 0.9 ng/mL Normal . [facility] Comment on above: Result Comment: Foll icular phase 0.1 - 0.9 Luteal phase 1.8 - 23.9 Ovulation phase 0.1 - 12.0 First trimester 11.0 - 44.3 Second trimester 25.4 - 83.3 Third trimester 58.7 - 214.0 Postmenopausal 0.0 - 0.1 Performed at: [address] [id number] Manager Mission: Alexis Ashton PhD, Phone: [phone] PERFORMED BY: [facility] [address] [place] [id number] PATHOLOGIST MANAGER CUSTOM JORDI SMITH M.D. Performed By: #### P ANTHONY #### [facility] , Serum or plasma progesterone measurement (mass/volume)Ordered By: Brain Way on 10-01-2023 Progesterone [Mass/Vol] 0.9 ng/mL . [facility] Comment on above: Follicular phase 0.1 - 0.9 Luteal phase 1.8 - 23.9 Ovulation phase 0.1 - 12.0 First trimester 11.0 - 44.3 Second trimester 25.4 - 83.3 Third trimester 58.7 - 214.0 Postmenopausal 0.0 - 0.1Performed at: [facility] [place] [id number] Director: Alexis Ashton PhD, Phone: [phone] Ambulatory Visit Summaryon 0 09-29-2023 Ambulatory Visit Summary TAWNYA HERRING :1995 Visit Date:09/29/2023 Ambulatory Visit Instructions Your Diagnosis Sinusitis BMI 38.0-38.9,adult Your Care Team Attending Physician - Tyrone Rock PA-C Primary Care Physician - DARWIN JONES CNP This Is Your Medications List amoxicillin-clavulanate (Augmentin 875 mg oral tablet) methylPREDNISolone (Medrol [...] with DARWIN JONES CNP When: Where: [address] [facility] [place] [address]- Medications What How Much When Why Instructions New amoxicillin-clavulanate (Augmentin 875 mg oral tablet) 1 Tablets By Mouth Every 12 hours Sinusitis BMI 38.0-38.9,adult Duration: 10 Days Pickup at [facility] New methylPREDNISolone (Medrol Dosepack 4 mg Tab) 1 Packets By Mouth As Directed Sinusitis BMI 38.0-38.9,adult Duration: 6 Days as directed on package labeling Pickup at [facility] Unchanged citalopram (CeleXA 20 mg Tab) 1 Tablets By Mouth Every day Contact prescribing physician if questions or concerns Unchanged citalopram (citalopram 20 mg Tab) Contact prescribing physician if questions or concerns Unchanged pyridoxine (Vitamin B6 100 mg Tab) By Mouth Every day Contact prescribing physician if questions or concerns Pharmacy Information [facility]: [address] [place], [place] [id number] [phone] Allergies No Known Allergies No Known Medication [...] for choosing us for your care. Normal [facility] Family Medicine Office/Clini c Noteon 09-29-2023 Family [...] with voice recognition software. Occasional wrong-word or ?enjmi-q-dcap? substitutions may have occurred due to the [...] with improvement. She does not use any wuix-cmr-pipslkk Flonase and has not tried any other [...] at this time. May use medrol dose bang, steroid for symptomatic treatment, PRN tylenol/ibuprofen for pain. If improving over next 2-3 days, is consistent with viral illness and antibiotics not needed. If no improvement over next 2-3 days, fill Rx for Augmentin bid x 10 days and finish entire course. Fu with PCP if not improving with 5-7 days of antibiotic or significantly worsening. Patient verbalized understanding of treatment plan. Ordered: amoxicillin-clavulanate, = 1 tab(s), Oral, q12hr, X 10 day(s), # 20 tab(s), Refills(s) 0, Pharmacy: [facility], 170.2, cm, 09/29/23 10:44:00 EST, Height/Length Dosing, 112, kg, 09/29/23 10:44:00 EST, Weight Dosing methylPREDNISolone, = 1 packet(s), Oral, As Directed, as directed on package labeling, X 6 day(s), # 21 tab(s), Refills(s) 0, Pharmacy: [facility], 170.2, cm, 09/29/23 10:44:00 EST, Height/Length Dosing, 112, kg, 09/29/23 10:44:00 EST, Weight Dosing 2. BMI 38.0-38.9,adult (Z68.38: Body mass index [BMI] 38.0-38.9, adult) The standard range for ages 18 and olde (more content not included)... Normal [facility] Comment on above: Result Comment: Elec [...] ? Medicines that treat allergies (antihistamines). ? Lizj-wkh-dnamjbg pain relievers. ? If caused by bacteria, [...] home: Medicines ? Take, use, or apply uhoq-wod-cragklh and prescription medicines only as told by [...] and water are not available, use hand motor analyst. ? Do not smoke. Avoid being around people who are smoking (secondhand smoke). ? Keep all follow-up visits. This is important. Contact a health care provider if: ? You have a fever. ? Your symptoms get (more content not included)... Normal [facility] Noe 07-16-[address] [facility] Telephone ([facility]) -- TAWNYA HERRING ([id number]) 1995 F Date Time Provider Department 07/16/23 RUBY WHITTINGTONAlayna During your visit today, we recorded the following information about you: PatriciaJavonKenan 07/16/2023 9:40 AM Signed LVM to let [...] Encounter Status:Closed by KENAN GOMEZ on 07/16/23 [facility] CNOVon 06-08-2023 CNOV Office Visit (OTOLLN ) -- TAWNYA HERRING ([id number]) 1995 F Date Time Provider Department 06/08/23 [...] will be in touch with results via TapClickshart HPI: Tawnya is a 27 year old [...] Low Allergies (more content not included)... Normal [facility] Alanine aminotransferase [En zymatic activity/volume] in Serum or PlasmaOrdered By: Addi Ortega on 04-08-2023 ALT [Catalytic activity/Vol] 28 U/L 7-52 [facility] Albumin [Mass/volume] in Ser um or Plasma by Bromocresol green (BCG) dye binding methoOrdered By: Addi Ortega on 04-08-2023 Albumin BCG dye [Mass/Vol] 4.8 g/dL 3.5-5.7 [facility] Alkaline phosphatase [Enzyma tic activity/volume] in Serum or PlasmaOrdered By: Addi Ortega on 04-08-2023 ALP [Catalytic activity/Vol] 61 U/L 34-104 [facility] Aspartate aminotransferase [ Enzymatic activity/volume] in Serum or PlasmaOrdered By: Addi Ortega on 04-08-2023 AST [Catalytic activity/Vol] 13 U/L 13-39 [facility] Basophils Auto (Bld) [#/Vol] Ordered By: Addi Ortega on 04-08-2023 Basophils (Bld) [#/Vol] 0.0 10*3/uL 0.0-0.2 [facility] Basophils/100 WBC Auto (Bld) Ordered By: Addi Ortega on 04-08-2023 Basophils/100 WBC (Bld) 0.4 % . [facility] Bilirubin.total [Mass/volume ] in Serum or PlasmaOrdered By: Addi Ortega on 04-08-2023 Bilirubin [Mass/Vol] 0.4 mg/dL 0.3-1.0 [facility] Calcium [Mass/volume] in Ser um or PlasmaOrdered By: Addi Ortega on 04-08-2023 Calcium [Mass/Vol] 9.5 mg/dL 8.6-10.3 [facility] Carbon dioxide, total [Moles /volume] in Serum or PlasmaOrdered By: Addi Ortega on 04-08-2023 CO2 [Moles/Vol] 25.4 mmol/L 21.0-31.0 [facility] Chloride [Moles/volume] in S ghada or PlasmaOrdered By: Addi Ortega on 04-08-2023 Chloride [Moles/Vol] 106 mmol/L 98-107 [facility] Cholesterol [Mass/volume] in Serum or PlasmaOrdered By: Addi Ortega on 04-08-2023 Cholesterol [Mass/Vol] 162 mg/dL 140-200 [facility] Comment on above: Chol less than 200 m g/dl low riskChol 201-239 mg/dl borderline riskChol 240 mg/dl and greater high risk Cholesterol in LDL Calc [Mas s/Vol]Ordered By: Addi Ortega on 04-08-2023 Cholesterol in LDL [Mass/Vol] 99 mg/dL 0-100 [facility] Comment on above: LDL ATP III CLASSIFI CATIONLDL less than 100 mg/dL OptimalLDL 100-129 mg/dL Near or above optimalLDL 130-159 mg/dL Borderline highLDL 160-189 mg/dL HighLDL greater than 189 mg/dL Very high Cholesterol in VLDL Calc [Ma ss/Vol]Ordered By: Addi Ortega on 04-08-2023 Cholesterol in VLDL [Mass/Vol] 18 mg/dL [facility] Creatinine [Mass/volume] in Serum or PlasmaOrdered By: Addi Ortega on 04-08-2023 Creatinine [Mass/Vol] 0.59 mg/dL 0.60-1.20 [facility] Eosinophils Auto (Bld) [#/Vo l]Ordered By: Addi Ortega on 04-08-2023 Eosinophils (Bld) [#/Vol] 0.1 10*3/uL 0.0-0.45 [facility] Eosinophils/100 WBC Auto (Bl d)Ordered By: Addi Ortega on 04-08-2023 Eosinophils/100 WBC (Bld) 1.3 % . [facility] Erythrocyte distribution wid th Auto (RBC) [Ratio]Ordered By: Addi Ortega on 04-08-2023 Erythrocyte distribution width (RBC) [Ratio] 12.6 % 11.9-15.3 [facility] Globulin Calc (S) [Mass/Vol] Ordered By: Addi Ortega on 04-08-2023 Globulin (S) [Mass/Vol] 2.7 g/dL [facility] Glucose [Mass/volume] in Ser um or PlasmaOrdered By: Addi Ortega on 04-08-2023 Glucose [Mass/Vol] 83 mg/dL 70-100 [facility] Hematocrit Auto (Bld) [Volum e fraction]Ordered By: Addi Ortega on 04-08-2023 Hematocrit (Bld) [Volume fraction] 39.3 % 34.0-46.4 [facility] Hemoglobin [Mass/volume] in BloodOrdered By: Addi Ortega on 04-08-2023 Hemoglobin (Bld) [Mass/Vol] 13.6 g/dL 11.8-15.4 [facility] Leukocytes [#/volume] correc hamilton for nucleated erythrocytes in Blood by Automated counOrdered By: Addi Ortega on 04-08-2023 WBC corrected for nucl RBC Auto (Bld) [#/Vol] 7.6 10*3/uL 3.8-11.6 [facility] Lymphocytes Auto (Bld) [#/Vo l]Ordered By: Addi Ortega on 04-08-2023 Lymphocytes (Bld) [#/Vol] 2.9 10*3/uL 1.00-4.8 [facility] Lymphocytes/100 WBC Auto (Bl d)Ordered By: Addi Ortega on 04-08-2023 Lymphocytes/100 WBC (Bld) 38.6 % . [facility] MCH Auto (RBC) [Entitic mass ]Ordered By: Addi Ortega on 04-08-2023 MCH (RBC) [Entitic mass] 31.6 pg 24.7-34.3 [facility] MCHC Auto (RBC) [Mass/Vol]Or dered By: Addi Ortega on 04-08-2023 MCHC (RBC) [Mass/Vol] 34.5 g/dL 32.0-35.0 [facility] MCV Auto (RBC) [Entitic vol] Ordered By: Addi Ortega on 04-08-2023 MCV (RBC) [Entitic vol] 91.7 fL 80-100 [facility] Monocytes Auto (Bld) [#/Vol] Ordered By: Addi Ortega on 04-08-2023 Monocytes (Bld) [#/Vol] 0.4 10*3/uL 0.0-0.8 [facility] Monocytes/100 WBC Auto (Bld) Ordered By: Addi Ortega on 04-08-2023 Monocytes/100 WBC (Bld) 5.8 % . [facility] Neutrophils Auto (Bld) [#/Vo l]Ordered By: Addi Ortega on 04-08-2023 Neutrophils (Bld) [#/Vol] 4.1 10*3/uL 1.8-7.7 [facility] Neutrophils/100 WBC Auto (Bl d)Ordered By: Addi Ortega on 04-08-2023 Neutrophils/100 WBC (Bld) 53.9 % . [facility] No Panel InformationOrdered By: Addi Ortega on 04-08-2023 Estimated GFR (CKD-EPI) > 60.0 mL/Min [facility] Nicotine Metabolite Negative Cutoff=25 [facility] Comment on above: Performed at: [address] [id number] Director: Catherine Mendoza MD, Phone: [phone] Pharmacy Creatinine Clearance (Chem N/A [facility] Nucleated erythrocytes [Pres ence] in Blood by Automated countOrdered By: Addi Ortega on 04-08-2023 Nucleated RBC Auto Ql (Bld) 0.0 /100{WBC} 0-0.5 [facility] Platelet mean volume Auto (B ld) [Entitic vol]Ordered By: Addi Ortega on 04-08-2023 Platelet mean volume (Bld) [Entitic vol] 8.6 fL 6.3-10.7 [facility] Platelets Auto (Bld) [#/Vol] Ordered By: Addi Ortega on 04-08-2023 Platelets (Bld) [#/Vol] 361 10*3/uL 150-450 [facility] Potassium [Moles/volume] in Serum or PlasmaOrdered By: Addi Ortega on 04-08-2023 Potassium [Moles/Vol] 4.6 mmol/L 3.5-5.1 [facility] Protein [Mass/volume] in Ser um or PlasmaOrdered By: Addi Ortega on 04-08-2023 Protein [Mass/Vol] 7.5 g/dL 6.4-8.9 [facility] RBC Auto (Bld) [#/Vol]Ordere d By: Addi Ortega on 04-08-2023 RBC (Bld) [#/Vol] 4.29 10*6/uL 3.60-5.00 [facility] Serum or plasma albumin/glob ulin mass ratioOrdered By: Addi Ortega on 04-08-2023 Albumin/Globulin [Mass ratio] 1.8 {ratio} [facility] Serum or plasma anion gap de terminationOrdered By: Addi Ortega on 04-08-2023 Anion gap [Moles/Vol] 12.2 mmol[facility]L [facility] or plasma high density lipoprotein (HDL) cholesterol measurementOrdered By: Addi Ortega on 04-08-2023 Cholesterol in HDL [Mass/Vol] 45 mg/dL 23- [facility] Comment on above: HDL CHOL ATP-III CLA SSIFICATION Cardiovascular RiskHDL > or equal to 60 mg/dL LOWHDL < 40 mg/dL HIGH Serum or plasma total choles terol/high density lipoprotein (HDL) cholesterol mass ratOrdered By: Addi Ortega on 04-08-2023 Cholesterol.total/Cho lesterol in HDL [Mass ratio] 3.6 {ratio} <5.0 [facility] Sodium [Moles/volume] in Ser um or PlasmaOrdered By: Addi Ortega on 04-08-2023 Sodium [Moles/Vol] 139 mmol/L 136-145 [facility] Thyrotropin [Units/volume] i n Serum or PlasmaOrdered By: Addi Ortega on 04-08-2023 TSH Qn 4.55 m[IU]/L 0.45-5.33 [facility] Triglyceride [Mass/volume] i n Serum or PlasmaOrdered By: Addi Ortega on 04-08-2023 Triglyceride [Mass/Vol] 92 mg/dL 0-149 [facility] Comment on above: TRIG ATP III CLASSIF ICATIONTRIG less than 150 mg/dL NormalTRIG 150-199 mg/dL Borderline highTRIG 200-500 mg/dL High TRIG greater than 500 mg/dL Very highStandard traceable to the Center for Disease Conrtrol and Prevention (CDC) test method. Urea nitrogen [Mass/volume] in Serum or PlasmaOrdered By: Addi Ortega on 04-08-2023 Urea nitrogen [Mass/Vol] 18 mg/dL 03-09 [facility] WBC Auto (Bld) [#/Vol]Ordere d By: Addi Ortega on 04-08-2023 WBC (Bld) [#/Vol] 7.6 10*3/uL 3.8-11.6 [facility] C Urineon 03-24-2023 Bacteria identified Cx Nom [...] Locations R1: This test was performed at: [facility], [address] [place] [address], [facility]- , , Normal [facility] Comment on above: Performed By: #### 2 075660, 6773292, 82072602, 8511794, 9270635, [id number] #### [facility] [address] [place] [address] Abdomen/Pelvis w/o Contra ston 03-23-2023 CT [...] Oral contrast amount in ml's: 0 Normal [facility] Discharge Instructionson Discharge Instructions [id number]:127 Normal [facility] ED Note-Physicianon 03-23-20 ED Note-Physician Basic [...] any medications. States that she was at [facility], where she did wait about 5 [...] and Complexity of Problems Differential Diagnosis: [] [facility] Data External documents reviewed: [] My EKG [...] day(s), # 28 cap(s), Refills(s) 0, Pharmacy: [facility], 170.2, cm, 03/22/23 20:14:00 EDT, Height/Length Dosing, 113.5, kg, 03/22/23 20:14:00 EDT, Weight Dosing ketorolac, 30 mg = 1 mL, Injection, IV Push, Once, Stop date 03/22/23 20:51:00 EDT, STAT, Start date 03/22/23 20:51:00 EDT, 03/22/23 20:51:00 EDT ondansetron, 4 mg = 2 mL, Injection, IV Push, Once, Stop date 03/22 (more content not included)... Normal [facility] Comment on above: Result Comment: Elec tronically Signed By: Hector Correa PA-C\.br\Date and Time Signed: 03/22/23 23:35 EDT\.br\Electronically Co-Signed By: Gabriel Curtis DO.br\Date and Time Co-Signed: 03/23/23 03:21 EDT RAD - Preliminary Cat Scan R eporton 03-23-2023 RAD - Preliminary Cat Scan Report [id number]:127 Normal [facility] Auto Diffon 03-22-2023 Basophils/100 WBC (Bld) 0.5 % Normal 0.0-2.0 [facility] Comment on above: Order Comment: Order Added by Discern Expert. Performed By: #### 2 356057, 6672757, 49818819, 8443563, 0849967, 1633229 #### [facility] [address] [place] [address] Basophils/Leukocytes Auto (Bld) [Pure # fraction] 0.0 E9/L Normal 0.0-0.2 [facility] Comment on above: Order Comment: Order Added by Discern Expert. Performed By: #### 2 943525, 6318950, 04392854, 6310327, 4916229, 3823757 #### [facility] [address] [place] [address] Eosinophils/100 WBC (Bld) 1.5 % Normal 0.0-8.0 [facility] Comment on above: Order Comment: Order Added by Discern Expert. Performed By: #### 2 321324, 4489061, 43461450, 1262670, 7464436, 8038405 #### [facility] [address] [place] [address] Eosinophils/Leukocyte s Auto (Bld) [Pure # fraction] 0.1 E9/L Normal 0.0-0.5 [facility] Comment on above: Order Comment: Order Added by Discern Expert. Performed By: #### 2 521779, 9531242, 66525192, 1001880, 3112752, 9678868 #### [facility] [address] [place] [address] Lymphocytes/100 WBC (Bld) 34.9 % Normal 14.0-50.0 [facility] Comment on above: Order Comment: Order Added by Discern Expert. Performed By: #### 2 302968, 3043774, 54670576, 9188123, 6041018, 1843369 #### [facility] [address] [place] [address] Lymphocytes/Leukocyte s Auto (Bld) [Pure # fraction] 3.4 E9/L Normal 1.0-4.0 [facility] Comment on above: Order Comment: Order Added by Discern Expert. Performed By: #### 2 428643, 0520246, 65829294, 7530758, 5621633, 9156662 #### [facility] [address] [place] [address] Monocytes/100 WBC (Bld) 6.0 % Normal 4.0-14.0 [facility] Comment on above: Order Comment: Order Added by Discern Expert. Performed By: #### 2 688273, 6108139, 73527171, 4150916, 9988699, 1047217 #### [facility] [address] [place] [address] Monocytes/Leukocytes Auto (Bld) [Pure # fraction] 0.6 E9/L Normal 0.2-1.0 [facility] Comment on above: Order Comment: Order Added by Discern Expert. Performed By: #### 2 038491, 8936561, 82813973, 3501144, 8252485, 2937819 #### [facility] [address] [place] [address] Neutrophils/100 WBC (Bld) 57.1 % Normal 36.0-75.0 [facility] Comment on above: Order Comment: Order Added by Discern Expert. Performed By: #### 2 079830, 3580360, 57711691, 1966468, 6614225, 0943617 #### [facility] [address] [place] [address] Neutrophils/Leukocyte s Auto (Bld) [Pure # fraction] 5.6 E9/L Normal 2.0-7.5 [facility] Comment on above: Order Comment: Order Added by Discern Expert. Performed By: #### 2 370610, 3920451, 81894870, 4569695, 4021169, 5127806 #### [facility] [address] [place] [address] BMPon 03-22-2023 Creatinine [Mass/Vol] 0.5 mg/dL Normal 0.5-1.3 [facility] Comment on above: Performed By: #### 2 413972, 5729194, 99789134, 3057291, 3163828, 1749328 #### [facility] [address] [place] [address] Urea nitrogen [Mass/Vol] 15 mg/dL Normal 5-21 [facility] Comment on above: Performed By: #### 2 177410, 0866137, 99468441, 3850523, 7126759, 8757031 #### [facility] [address] [place] [address] Urea nitrogen/Creatinine [Mass ratio] 30 No Units High 10-20 [facility] Comment on above: Performed By: #### 2 219900, 6170839, 27890338, 2542197, 7202243, 0361822 #### [facility] [address] [place] [address] Anion gap [Moles/Vol] 15 mmol/L Normal 6-16 [facility] Comment on above: Performed By: #### 2 167499, 7792899, 95554944, 7180581, 3027663, 2198553 #### [facility] [address] [place] [address] Calcium [Mass/Vol] 9.6 mg/dL Normal 8.9-11.1 [facility] Comment on above: Performed By: #### 2 599841, 1834180, 78966143, 7201598, 8194178, 9288946 #### [facility] [address] [place] [address] Chloride [Moles/Vol] 103 mmol/L Normal 101-111 [facility] Comment on above: Performed By: #### 2 468981, 6698331, 15476402, 5234115, 5372359, 9868420 #### [facility] [address] [place] [address] CO2 [Moles/Vol] 23 mmol/L Normal 21-31 [facility] Comment on above: Performed By: #### 2 687099, 0254746, 02805589, 6562772, 7273264, 0989296 #### [facility] [address] [place] [address] Glucose [Mass/Vol] 84 mg/dL Normal 55-199 [facility] Comment on above: Result Comment: If t his glucose result represents a fasting glucose, interpretation should refer to the following reference range: 55-99 mg/dL Performed By: #### 2 625156, 8728696, 53316287, 2135705, 8626214, 0269906 #### [facility] [address] [place] [address] Potassium [Moles/Vol] 3.7 mmol/L Normal 3.5-5.3 [facility] Comment on above: Performed By: #### 2 600490, 2627753, 54646484, 9151731, 6983810, 6484806 #### [facility] [address] [place] [address] Sodium [Moles/Vol] 137 mmol/L Normal 135-145 [facility] Comment on above: Performed By: #### 2 632287, 5024636, 28442122, 8185713, 0055220, 6282205 #### [facility] [address] [place] [address] CBC w/ Auto Diffon 3 Erythrocyte distribution width (RBC) [Ratio] 12.5 % Normal 10.9-14.2 [facility] Comment on above: Performed By: #### 2 070717, 0583989, 99392922, 5649912, 6848999, 2475942 #### [facility] [address] [place] [address] Hematocrit (Bld) [Volume fraction] 37.7 % Normal 34.0-46.0 [facility] Comment on above: Performed By: #### 2 322693, 4550007, 45889786, 0679022, 3068699, 8179950 #### [facility] [address] [place] [address] Hemoglobin (Bld) [Mass/Vol] 13.1 g/dL Normal 12.0-16.0 [facility] Comment on above: Performed By: #### 2 383297, 0636017, 99764527, 4252620, 8393309, 7464628 #### [facility] [address] [place] [address] MCH (RBC) [Entitic mass] 31.9 pg Normal 27.0-34.0 [facility] Comment on above: Performed By: #### 2 941709, 6494246, 88737036, 9474876, 0170508, 0350073 #### [facility] [address] [place] [address] MCHC (RBC) [Mass/Vol] 34.8 g/dL Normal 31.4-36.0 [facility] Comment on above: Performed By: #### 2 365749, 5642096, 47311313, 7747997, 0994175, 3239478 #### [facility] [address] [place] [address] MCV (RBC) [Entitic vol] 91.6 fL Normal 80.0-100.0 [facility] Comment on above: Performed By: #### 2 424969, 9081495, 43165952, 5653960, 6824670, 5844729 #### [facility] [address] [place] [address] Platelet mean volume (Bld) [Entitic vol] 7.6 fL Normal 6.4-10.8 [facility] Comment on above: Performed By: #### 2 328683, 7796509, 19951341, 7993066, 5991447, 0602180 #### [facility] [address] [place] [address] Platelets (Bld) [#/Vol] 306.0 E9/L Normal 150.0-500. 0 [facility] Comment on above: Performed By: #### 2 500723, 0303198, 25111881, 4540442, 2524567, 3499878 #### [facility] [address] [place], [place] [address] RBC (Bld) [#/Vol] 4.1 E12/L Low 4.3-5.9 [facility] Comment on above: Performed By: #### 2 074202, 5677430, 22699791, 1521119, 1101300, 6450883 #### [facility] [address] [place] [address] WBC corrected for nucl RBC Auto (Bld) [#/Vol] 9.8 E9/L Normal 4.0-11.0 [facility] Comment on above: Performed By: #### 2 445592, 5893127, 10062033, 8796052, 3021990, 8678105 #### [facility] [address] [place] [address] CHEMISTRYOrdered By: SYSTEM SYSTEM on 03-22-2023 Albumin [Mass/Vol] 4.2 g/dL Normal 3.3 - 5.0 gm/dL [facility] Albumin/Globulin [Mass ratio] 1.4 {ratio} Normal 1.1 - 2.2 [facility] ALP [Catalytic activity/Vol] 54 [iU]/d Normal 21 - 98 Int._Unit/ L [facility] ALT No additional P-5'-P [Catalytic activity/Vol] 24 [iU]/d Normal 6 - 46 Int._Unit/ L [facility] Anion gap [Moles/Vol] 15 mmol/L Normal 6 - 16 mEq/L [facility] AST [Catalytic activity/Vol] 18 [iU]/d Normal 5 - 43 Int._Unit/ L [facility] Bilirubin [Mass/Vol] 0.7 mg/dL Normal [...] (S/P/Bld) [Vol rate/Area] 133 mL/min/1.73 m2 Normal >=59mL/min /1.73 m2 [facility] Chem S Globulin (S) [Mass/Vol] 3.1 g/dL Normal 1.4 - 4.0 gm/dL [facility] Glucose [Mass/Vol] 84 mg/dL Normal 55 [...] 15 mg/dL Normal 5 - 21 mg/dL [facility] Remisol Urea nitrogen/Creatinine [Mass ratio] 30 mg/mg High 10 - 20 [facility] Remisol Consent for Treatmenton 08-0 Consent for Treatment [id number]:127 Normal [facility] ED Clinical Summaryon 2022 ED Clinical Summary (Inserted Image. Hayley ble to display) [place] [id number] ED Clinical Summary Person Information Name: TAWNYA HERRING [facility]ysi/[facility] Age: 27 Years : 1995 Sex: Female Language: Spanish PCP: DARWIN JONES CNP Marital Status: Single Phone: [phone] Visit Id: Visit Reason: Dysuria; Nausea; Flank [...] 03/22/2023 22:52:44 03/22/2023 22:52:44 03/22/2023 22:52:44 ADDRESS: [address] [place] [phone] PHYS DOC NOTES: MEDICAL INFORMATION: Prescriptions Given: New Medications [facility], [address] [place], [place] [id number], [phone] cephalexin (Keflex 500 mg Cap) 1 Capsules By Mouth every 6 hours for 7 Days. Refills: 0. Medications to Continue with No Changes Other Medications acetaminophen-hydrocodone ([place] 325 mg-5 mg oral tablet) 2 Tablets [...] EDUCATION INFORMATION: Instructions: Urinary Tract Infection, Adult, Hxio-rx-Qfrq Follow up: With: Address: When: DARWIN JONES [address] [facility] [address] [phone] Business (1) In 3 days 03/25/2023 Comments: Follow-up with your primary care provider in 3 to 5 days. If symptoms worsen, do not improve, or new symptoms arise please report back to emergency department for further evaluation. DIAGNOSIS: UTI (urinary tract infection) Normal [facility] ED Patient Education Noteon 03-22-2023 ED [...] these instructions at home: Medicines ? Take wgqp-daf-oubzwhb and prescription medicines only as told by [...] Reviewed: 03/14/2021 Elsevier Patient Education ? 2022 [employer] Normal [facility] ED Patient Summaryon 023 ED Patient Summary (Inserted Image. Hayley ble to display) [address] [address] Patient Discharge Instructions Person Information Name: TAWNYA HERRING Age: 27 Years Arrival Date: 03/22/2023 19:52:37 Discharge Diagnosis: UTI (urinary tract infection) Primary Care Physician: DARWIN JONES CNP Provider Information Primary Provider: Gabriel Curtis DO [employer] Maker:None The exam and treatment you received in the Emergency Department were for an urgent problem and are not intended as complete care. It is important that you follow up with a doctor, nurse practitioner, or physician?s engineer first assistant for ongoing care. If your symptoms [...] Follow-up Instructions: With: Address: When: DARWIN JONES [address] [place] [id number] [phone] Business (1) In 3 days 03/25/2023 Comments: [...] Patient Education Materials: Urinary Tract Infection, Adult, Yxbg-bc-Gvjg A MESSAGE TO ALL PATIENTS REGARDING OPIOIDS PRESCRIPTION OPIOIDS: WHAT YOU NEED TO KNOW Prescription opioids can be used to help relieve apyjqdcz-yk-taclzo pain and are often prescribed following a [...] guidance from the Food and Drug Administration (www.fda.gov/Drugs/Resourc esForYou). ? Visit www.cdc.gov/drugoverdose to learn about the risks of op (more content not included)... Normal [facility] HEMATOLOGYOrdered By: SYSTEM SYSTEM on 03-22-2023 Basophils/100 WBC (Bld) 0.5 % Normal 0.0 - 2.0 % [facility] HemeAutoSS Basophils/Leukocytes Auto (Bld) [Pure # fraction] 0.0 E9/L Normal 0.0 - 0.2 E9/L [facility] HemeAutoSS Eosinophils/100 WBC (Bld) 1.5 % Normal 0.0 - 8.0 % [facility] HemeAutoSS Eosinophils/Leukocyte s Auto (Bld) [Pure # fraction] 0.1 E9/L Normal 0.0 - 0.5 E9/L [facility] HemeAutoSS Lymphocytes/100 WBC (Bld) 34.9 % Normal 14.0 - 50.0 % [facility] HemeAutoSS Lymphocytes/Leukocyte s Auto (Bld) [Pure # fraction] 3.4 E9/L Normal 1.0 - 4.0 E9/L [facility] HemeAutoSS Monocytes/100 WBC (Bld) 6.0 % Normal 4.0 - 14.0 % [facility] HemeAutoSS Monocytes/Leukocytes Auto (Bld) [Pure # fraction] 0.6 E9/L Normal 0.2 - 1.0 E9/L [facility]eAutoSS Neutrophils/100 WBC (Bld) 57.1 % Normal 36.0 - 75.0 % [facility] HemeAutoSS Neutrophils/Leukocyte s Auto (Bld) [Pure # fraction] 5.6 E9/L [...] 34.8 g/dL Normal 31.4 - 36.0 gm/dL [facility] HemeAutoSS MCV (RBC) [Entitic vol] 91.6 fL Normal 80.0 - 100.0 fL [facility] HemeAutoSS Platelet mean volume (Bld) [Entitic vol] 7.6 fL Normal 6.4 - 10.8 fL [facility] HemeAutoSS Platelets (Bld) [#/Vol] 306.0 E9/L Normal 150.0 - 500.0 E9/L [facility] HemeAutoSS RBC (Bld) [#/Vol] 4.1 E12/L Low 4.3 - 5.9 E12/L [facility] HemeAutoSS WBC corrected for nucl RBC Auto (Bld) [#/Vol] 9.8 E9/L Normal 4.0 - 11.0 E9/L [facility] HemeAutoSS Hep Func Panelon 03-22-2023 Albumin [Mass/Vol] 4.2 g/dL Normal 3.3-5.0 [facility] Comment on above: Performed By: #### 2 502214, 0483217, 91197029, 0423044, 4047769, 4900187 #### [facility] [address] [place] [address] Albumin/Globulin (S) [Mass conc ratio] 1.4 Normal 1.1-2.2 [facility] Comment on above: Performed By: #### 2 972547, 1338526, 02350637, 6247735, 6126884, 7476739 #### [facility] [address] [place] [address] ALP [Catalytic activity/Vol] 54 Int._Unit/L Normal 21-98 [facility] Comment on above: Performed By: #### 2 120098, 6528977, 67313432, 0880406, 3316093, 5618924 #### [facility] [address] [place] [address] ALT No additional P-5'-P [Catalytic activity/Vol] 24 Int._Unit/L Normal 6-46 [facility] Comment on above: Performed By: #### 2 413850, 4742766, 22300632, 6357993, 1342347, 0156304 #### [facility] [address] [place] [address] AST [Catalytic activity/Vol] 18 Int._Unit/L Normal 5-43 [facility] Comment on above: Performed By: #### 2 631654, 8827502, 58344225, 3766461, 8812191, 9895321 #### [facility] [address] [place] [address] Bilirubin [Mass/Vol] 0.7 mg/dL Normal 0.0-1.1 [facility] Comment on above: Performed By: #### 2 607277, 1847847, 93625224, 0651396, 9710358, 3838344 #### [facility] [address] [place] [address] Bilirubin.direct [Mass/Vol] 0.1 mg/dL Normal 0.1-0.4 [facility] Comment on above: Performed By: #### 2 255356, 8813033, 84320925, 4103585, 3077735, 7164749 #### [facility] [address] [place] [address] Bilirubin.indirect [Mass or moles/Vol] 0.6 mg/dL Normal 0.1-0.9 [facility] Comment on above: Performed By: #### 2 261955, 9424742, 02838925, 6164995, 3167860, 6499699 #### [facility] [address] [place] [address] Globulin (S) [Mass/Vol] 3.1 g/dL Normal 1.4-4.0 [facility] Comment on above: Performed By: #### 2 862095, 3636099, 74137680, 7722373, 4470688, 3485956 #### [facility] [address] [place] [address] Protein [Mass/Vol] 7.3 g/dL Normal 6.0-7.8 [facility] Comment on above: Performed By: #### 2 236133, 8638841, 38489428, 3200578, 5279331, 6549009 #### [facility] [address] [place] [address] Lipase Levelon 03-22-2023 Lipase [Catalytic activity/Vol] 28 U/L Normal 13-58 [facility] Comment on above: Performed By: #### 2 702585, 6772050, 36145838, 0546561, 1235205, 1462643 #### [facility] [address] [place] [address] SEROLOGYOrdered By: Lucina Shaikh on 03-22-2023 HCG.beta subunit (U) [Moles/Vol] Negative Normal [facility] Man Sero U BetaHcg Qualon 03-22-2023 HCG.beta subunit (U) [Moles/Vol] Negative Normal [facility] Comment on above: Performed By: #### 2 836784, 0071620, 23689287, 9913994, 0293167, 6013645 #### [facility] [address] [place] [address] UA With Cult Reflexon 2022 Bacteria LM Ql (Urine sed) TRACE Normal Trace [facility] Comment on above: Performed By: #### 2 632015, 6773608, 15903137, 7560955, 6016848, 8886441 #### [facility] [address] [place] [address] Bilirubin Ql (U) Negative Normal Negative [facility] Comment on above: Performed By: #### 2 071304, 5877068, 27656030, 7531987, 6082354, 2013631 #### [facility] [address] [place] [address] Clarity (U) SL CLOUDY Abnormal Clear [facility] Comment on above: Performed By: #### 2 724975, 9901304, 87026785, 5233165, 4903419, 5054497 #### [facility] [address] [place] [address] Color (U) YELLOW Normal Yellow [facility] Comment on above: Performed By: #### 2 735791, 1839478, 82124554, 5620041, 4397540, 4767391 #### [facility] [address] [place] [address] Crystals LM Ql (Urine sed) Present Normal [facility] Comment on above: Performed By: #### 2 796602, 8253370, 58539638, 3926244, 6658921, 7787579 #### [facility] [address] [place] [address] Epithelial cells.squamous LM.HPF (Urine sed) [#/Area] 0-2 Normal 0-2 [facility] Comment on above: Performed By: #### 2 840774, 4343020, 81934257, 8616534, 9148987, 5938423 #### [facility] [address] [place] [address] Glucose Test strip (U) [Mass/Vol] Negative Normal Negative [facility] Comment on above: Performed By: #### 2 903527, 8470701, 11489311, 3503770, 8633741, 4189612 #### [facility] [address] [place] [address] Hemoglobin Ql (U) 2+ Abnormal Negative [facility] Comment on above: Performed By: #### 2 441961, 7519059, 80163310, 3663101, 6954018, 3920059 #### [facility] [address] [place] [address] Ketones (U) [Mass/Vol] 1+ Abnormal Negative [facility] Comment on above: Performed By: #### 2 656834, 8397448, 01582335, 0071849, 2207384, 6859434 #### [facility] [address] [place] [address] [place]dorf.plasma/Lithiu m.RBC (Bld) [Mass ratio] 0-3 Normal 0-3 [facility] Comment on above: Performed By: #### 2 586696, 2537769, 72975169, 3004863, 2425601, 2054455 #### [facility] [address] [place] [address] Mucus Ql (Urine sed) TRACE Normal [facility] Comment on above: Performed By: #### 2 039675, 6108727, 64416518, 5640158, 7655512, 0102449 #### [facility] [address] [place] [address] Nitrite Ql (U) Negative Normal Negative [facility] Comment on above: Performed By: #### 2 518057, 6225289, 33595986, 7521434, 5827442, 0110905 #### [facility] [address] [place] [address] pH (U) 5.5 [pH] Invalid Interpretation Code 5.0-9.0 [facility] Comment on above: Performed By: #### 2 685662, 5849730, 30766800, 3485974, 1474337, 0553454 #### [facility] [address] [place] [address] Protein (U) [Mass/Vol] Negative Normal Negative [facility] Comment on above: Performed By: #### 2 217928, 1603590, 22156544, 3471808, 7251958, 5001506 #### [facility] [address] [place] [address] Specific gravity (U) [Rel density] >=1.030 Invalid Interpretation Code 1.005-1.03 0 [facility] Comment on above: Performed By: #### 2 052613, 8071016, 86227622, 6070728, 3933804, 9077006 #### [facility] [address] [place] [address] Type of Urine collection method Clean Catch Normal [facility] Comment on above: Performed By: #### 2 365873, 2131666, 39858067, 6402709, 8134429, 9203821 #### [facility] [address] [place] [address] Urobilinogen Qn (U) 0.2 {Aly'U}/dL Normal 0.0-1.0 [facility] Comment on above: Performed By: #### 2 587405, 3858896, 36907593, 2863809, 0617042, 9423476 #### [facility] [address] [place] [address] WBC Auto Ql (U) 2+ Abnormal Negative [facility] Comment on above: Performed By: #### 2 622414, 9294827, 57872066, 5811497, 1412442, 2458636 #### [facility] [address] [place] [address] WBC LM.HPF (Urine sed) [#/Area] 16-25 Abnormal 0-5 [facility] Comment on above: Performed By: #### 2 298439, 2318061, 50312098, 0576066, 1118061, 4476393 #### [facility] [address] [place] [address] URINALYSISOrdered By: Eilzabeth Shaikh on 03-22-2023 Bacteria LM Ql (Urine [...] Interpretation Code Negative [facility] UA Auto SS [place].plasma/Lithiu m.RBC (Bld) [Mass ratio] 0-3 /HPF Normal 0-3/HPF [facility] UA Auto SS Mucus Ql (Urine sed) Trace (03/22/23 [...] PM) Invalid Interpretation Code 1.005 - 1.030 [facility] Auto SS UA Spec Desc Clean Catch (03/22/23 8:17 PM) Normal [facility] Auto SS Urobilinogen Qn (U) 0.8583276 {Aly'U}/dL Normal 0.0 - 1.0 EU/dL [facility] UA Auto SS WBC Auto Ql (U) 2+ *ABN* (03/22/23 8:17 PM) Invalid Interpretation Code Negative [facility] UA Auto SS WBC LM.HPF (Urine sed) [#/Area] 16-25 /HPF Invalid Interpretation Code 0-5/HPF [facility] UA Auto SS eGFRon 03-22-2023 GFR/1.73 sq M.predicted among non-blacks MDRD (S/P/Bld) [Vol rate/Area] 133 mL/min/1.73 m2 Normal >=59 [facility] Comment on above: Order Comment: Order added by Discern Expert. Result Comment: Patternmaker Sample vinh kidney disease could be indicated at eGFR's of less than 60 mL/min/1.73m2. Kidney failure is indicated at less than 15 mL/min/1.73m2. Performed By: #### 2 406345, 3055447, 08500529, 9685165, 7620763, 7650115 #### [facility] [address] [place] [address] Alanine aminotransferase [En zymatic activity/volume] in Serum or PlasmaOrdered By: Zurdo Ortega on 02-28-2023 ALT [Catalytic activity/Vol] 21 U/L 7 [facility] HIV 1 and HIV-2 antibody ass ay with HIV-1 p24 antigen detectionOrdered By: Zurdo Ortega on 02-28-2023 HIV 1+2 Ab+HIV1 p24 Ag IA Ql Non-Reactive Non Reactive [facility] Comment on above: HIV NegativeHIV-1/HI V-2 antibodies and HIV-1 p24 antigen were NOTdetected. There is no laboratory evidence of HIV infection. Hepatitis B virus surface Ag [Presence] in Serum or Plasma by ImmunoassayOrdered By: Zurdo Ortega on 02-28-2023 HBV surface Ag IA Ql Negative Negative [facility] Comment on above: Performed at: [place] [id number] Director: Alexis Ashton PhD, Phone: [phone] Hepatitis C virus IgG Ab [Pr esence] in Serum or Plasma by ImmunoassayOrdered By: Zurdo Ortega on 02-28-2023 HCV IgG IA Ql Non-Reactive Non Reactive [facility] No Panel InformationOrdered By: Zurdo Ortega on 02-28-2023 Hepatitis C Interpretation See comment . [facility] Comment on above: Not infected with HC V unless early or acute infection issuspected (which may be delayed in an immunocompromisedindividual), or other evidence exists to indicate HCVinfection. Serum hepatitis B virus surf nikolas antibody detectionOrdered By: Zurdo Ortega on 02-28-2023 HBV surface Ab Ql (S) Reactive . [facility] Comment on above: Non Reactive: Incons istent with immunity, less than 10 mIU/mL Reactive: Consistent with immunity, greater than 9.9 mIU/mL PAP ACOG PANEL 2: 21 to 29on 12-17-2022 . . [facility] Comment on above: Performed By: #### 4 855404 #### [facility] [address] [place] [address] [address] Regine Fortune Age Gdln ACOG Testing Normal [facility] Comment on above: Performed By: #### 4 552674 #### [facility] [address] [address] [address] Regine Fortune DIAGNOSIS: Comment [facility] Comment on above: Result Comment: NEGA TIVE FOR INTRAEPITHELIAL LESION OR MALIGNANCY. Performed By: #### 4 [id number] #### [facility] [address] [place] [address] Dr. Regine Fortune Methodology: Comment [facility] Comment on above: Result Comment: This liquid based ThinPrep(R) pap test was screened with the use of an image guided system. Performed By: #### 4 936030 #### [facility] [address] [place] [address] Dr. Regine Fortune Note: Comment [facility] Comment on above: Result Comment: The Pap smear is a screening test designed to aid in the detection of premalignant and malignant conditions of the uterine cervix. It is not a diagnostic procedure and should not be used as the sole means of detecting cervical cancer. Both false-positive and false-negative reports do occur. . Performed By: #### 4 [id number] #### [facility] [address] [place] [address] Dr. Regine Fortune Performed by: Comment Normal [facility] Comment on above: Result Comment: Amna Hernandes Inside Upholsterer (ASCP) Performed By: #### 4 448276 #### [facility] [address] [place] [address] Dr. Regine Fortune Reflex Criteria: Comment [facility] Comment on above: Result Comment: The HPV DNA reflex criteria were not met with this specimen result therefore, no HPV testing was performed. . Performed By: #### 4 096930 #### [facility] [address] [place] [address] Dr. Regine Fortune Specimen adequacy: Comment [facility] Comment on above: Result Comment: Sati sfactory for evaluation. Endocervical and/or squamous metaplastic cells (endocervical component) are present. Areas of partially obscuring inflammatory exudate are present. Performed By: #### 4 665962 #### [facility] [address] [address] [address] Regine Fortune Thyrotropin [Units/volume] i n Serum or PlasmaOrdered By: Brain Way on 12-10-2022 TSH Qn 2.86 m[IU]/L 0.45-5.33 [facility] Thyroxine (T4) free [Mass/vo lume] in Serum or PlasmaOrdered By: Brain Way on 12-10-2022 Free T4 [Mass/Vol] 0.94 ng/dL 0.61-1.12 [facility] Albumin [Mass/volume] in Ser um or PlasmaOrdered By: Ofelia Hester on 10-16-2022 Albumin [Mass/Vol] 4.1 g/dL 3.2-5.5 [facility] Alkaline phosphatase [Enzyma tic activity/volume] in Serum or PlasmaOrdered By: Ofelia Hester on 10-16-2022 ALP [Catalytic activity/Vol] 56 U/L 32-92 [facility] Amylaseon 10-16-2022 Amylase 43 U/L Normal 28-100 U/L [facility] Other Amylase [Enzymatic activity/ volume] in Serum or PlasmaOrdered By: Ofelia Hester on 10-16-2022 Amylase [Catalytic activity/Vol] 43 U/L 28-100 [facility] Aspartate aminotransferase [ Enzymatic activity/volume] in Serum or PlasmaOrdered By: Ofelia Hester on 10-16-2022 AST [Catalytic activity/Vol] 16 U/L 10-42 [facility] Bilirubin.total [Mass/volume ] in Serum or PlasmaOrdered By: Ofelia Hester on 10-16-2022 Bilirubin [Mass/Vol] 0.6 mg/dL 0.3-1.2 [facility] Calcium [Mass/volume] in Ser um or PlasmaOrdered By: Ofelia Hester on 10-16-2022 Calcium [Mass/Vol] 9.3 mg/dL 8.2-10.2 [facility] Carbon dioxide, total [Moles /volume] in Serum or PlasmaOrdered By: Ofelia Hester on 10-16-2022 CO2 [Moles/Vol] 22.1 mmol/L 22.0-30.0 [facility] Chloride [Moles/volume] in S ghada or PlasmaOrdered By: Ofelia Hester on 10-16-2022 Chloride [Moles/Vol] 105 mmol/L 95-114 [facility] Comprehensive Metabolic Pane samy 10-16-2022 Albumin [Mass/Vol] 4.943006 g/dL Normal 3.2-5.5 g/dL [facility] Other ALT [Catalytic activity/Vol] 17 U/L Normal 10-60 U/L [facility] Other Bilirubin [Mass/Vol] 0.9469616 mg/dL Normal 0.3- 1.2 mg/dL [facility] Other Calcium [Mass/Vol] 9.4994677 mg/dL Normal 8.2-10 .2 mg/dL [facility] Other CO2 [Moles/Vol] 22.71139176 mmol/L Normal 22.0-3 0.0 mmol/L [facility] Other Creatinine [Mass/Vol] 0.57151016 mg/dL Normal 0. 44-1.03 mg/dL [facility] Other Potassium [Moles/Vol] 4.53652212 mmol/L Normal 3 .5-5.1 mmol/L [facility] Other Protein [Mass/Vol] 6.946377 g/dL Normal 6.1-7.9 g/dL [facility] Other Comprehensive Metabolic Panel > 60 [facility] Other Comprehensive Metabolic Panel 2.5 g/dL [facility] Other Creatinine and Glomerular fi ltration rate.predicted panel (S/P/Bld)Ordered By: Ofelia Hester on 10-16-2022 Creatinine [Mass/Vol] 0.55 mg/dL 0.44-1.03 [facility] Estimated glomerular filtrat ion rate (GFR) non- AmericanOrdered By: Ofelia Hester on 10-16-2022 GFR/1.73 sq M.predicted among non-blacks MDRD (S/P/Bld) [Vol rate/Area] > 60 mL/Min [facility] Globulin Calc (S) [Mass/Vol] Ordered By: Ofelia Hester on 10-16-2022 Globulin (S) [Mass/Vol] 2.5 g/dL [facility] Glucose [Mass/volume] in Ser um or PlasmaOrdered By: Ofelia Hester on 10-16-2022 Glucose [Mass/Vol] 86 mg/dL 70-100 [facility] Comment on above: ADA recommended refe rence rangeRandom Glucose Reference Range is dependent on time and content of last meal. Glucose of more than 200 mg/dL in a nonstressed, ambulatory subject supports the diagnosis of Diabetes Mellitus. Laboratory - Chemistry and C hemistry - challengeOrdered By: Ofelia Hester on 10-16-2022 Lipase [Catalytic activity/Vol] 35.0 U/L 22-51 [facility] Lipaseon 10-16-2022 Lipase [Catalytic activity/Vol] 35.67200 U/L Normal 22-51 U/L [facility] Other No Panel InformationOrdered By: Ofelia Hester on 10-16-2022 Estimated GFR () > 60 mL/Min [facility] Comment on above: GFR estimated refere nce range: According to KDOQI guidelines, <60 ml/min/1.73m2 is sufficient to diagnose a patient with chronic kidney disease. Pharmacy Creatinine Clearance (Chem N/A [facility] Potassium [Moles/volume] in Serum or PlasmaOrdered By: Ofelia Hester on 10-16-2022 Potassium [Moles/Vol] 4.3 mmol/L 3.5-5.1 [facility] Protein [Mass/volume] in Ser um or PlasmaOrdered By: Ofelia Hester on 10-16-2022 Protein [Mass/Vol] 6.6 g/dL 6.1-7.9 [facility] Serum or plasma alanine galaviz otransferase measurement without P-5'-P (enzymatic activiOrdered By: Ofelia Hester on 10-16-2022 ALT No additional P-5'-P [Catalytic activity/Vol] 17 U/L 10-60 [facility] Serum or plasma albumin/glob ulin mass ratioOrdered By: Ofelia Hester on 10-16-2022 Albumin/Globulin [Mass ratio] 1.6 {ratio} [facility] Serum or plasma anion gap de terminationOrdered By: Ofelia Hester on 10-16-2022 Anion gap [Moles/Vol] 13.2 mmol/L 6.0-15.0 [facility] Sodium [Moles/volume] in Ser um or PlasmaOrdered By: Ofelia Hester on 10-16-2022 Sodium [Moles/Vol] 136 mmol/L 136-146 [facility] Urea nitrogen [Mass/volume] in Serum or PlasmaOrdered By: Ofelia Hester on 10-16-2022 Urea nitrogen [Mass/Vol] 11 mg/dL 9-23 [facility] T4 FREE/FREE THYROXon 2021 Free T4 [Mass/Vol] 1.3 ng/dL 0.9 - 1.7 ng/dL [facility] TSH BLDon 07-14-2022 TSH Qn 2.480 m[IU]/L 0.270 - 4.200 mIU/L [facility] VITAMIN B12 BLOODon 07-14-20 Cobalamin (Vitamin B12) [Mass/Vol] 267 pg/mL 232 - 1,245 pg/mL [facility] Quick Fluon 06-04-2022 FLUAV Ab CF (S) [Titer] Negative [facility] Other FLUBV Ab CF (S) [Titer] Negative [facility] Other Quick Strepon 06-04-2022 S. pyogenes Org specific cx Ql (Throat) Negative [facility] Other castaclip Strep [facility] Other SARS-CoV-2 (COVID-19) RNA NA A+probe Ql (Resp)on 06-04-2022 SARS-CoV-2 (COVID-19) RNA LAUREN+probe Ql (Unsp spec) Negative [facility] Other TSH DL <= 0.005 mIU/L QnOrde red By: Darwin Jones on 04-14-2022 TSH Qn 6.39 m[IU]/L 0.45-5.33 [facility] Thyroxine (T4) free [Mass/vo lume] in Serum or PlasmaOrdered By: Darwin Jones on 04-14-2022 Free T4 [Mass/Vol] 0.82 ng/dL 0.61-1.12 [facility] Triiodothyronine (T3) Free [ Mass/volume] in Serum or PlasmaOrdered By: Darwin Jones on 04-14-2022 Free T3 [Mass/Vol] 4.08 pg/mL 2.50-3.90 [facility] Serum or plasma calcium luis urement (mass/volume)Ordered By: Saad Valera on 04-06-2022 Calcium [Mass/Vol] 9.4 mg/dL 8.2-10.2 [facility] Serum or plasma intact parat hyroid hormone measurement (mass/volume)Ordered By: Saad Valera on 04-06-2022 Parathyrin.intact [Mass/Vol] 54.8 pg/mL [facility] CHEMISTRYOrdered By: Orion ROP User on 02-18-2022 Glucose [Mass/Vol] 106 mg/dL High 55 - 99 mg/dL [facility] POC Subsection Comment on above: Result Comment: Aurelia breana Meter POC Device SN [id number] Invalid Interpretation Code [facility] POC Subsection POC User ID [id number] Invalid Interpretation Code [facility] POC Subsection POC Username ZHOU OBINNA Invalid Interpretation Code [facility] POC Subsection Serum or plasma thyroglobuli n antibody assay (units/volume)Ordered By: Darwin Jones on 02-13-2022 Thyroglobulin Ab Qn 971.2 [IU]/mL 0.0-0.9 [facility] Comment on above: Thyroglobulin Antibo dy measured by [employer] Methodology Performed at: - [facility] [id number] Manager Mission: Alexis Ashton PhD, Phone: [phone] Serum or plasma thyroperoxid ase antibody assay (units/volume)Ordered By: Darwin Jones on 02-13-2022 TPO Ab Qn 327 [IU]/mL 0-34 [facility] Thyroxine (T4) free [Mass/vo lume] in Serum or PlasmaOrdered By: Darwin Jones on 02-13-2022 Free T4 [Mass/Vol] 0.66 ng/dL 0.61-1.12 [facility] Triiodothyronine (T3) Free [ Mass/volume] in Serum or PlasmaOrdered By: Darwin Jones on 02-13-2022 Free T3 [Mass/Vol] 4.04 pg/mL 2.50-3.90 [facility] Albumin [Mass/volume] in Ser um or PlasmaOrdered By: Addi Ortega on 02-10-2022 Albumin [Mass/Vol] 4.1 g/dL 3.2-5.5 [facility] Basophils Auto (Bld) [#/Vol] Ordered By: Addi Ortega on 02-10-2022 Basophils (Bld) [#/Vol] 0.0 10*3/uL 0.0-0.2 [facility] Basophils/100 WBC Auto (Bld) Ordered By: Addi Ortega on 02-10-2022 Basophils/100 WBC (Bld) 0.4 % . [facility] Blood hemoglobin measurement (mass/volume)Ordered By: Addi Ortega on 02-10-2022 Hemoglobin (Bld) [Mass/Vol] 14.1 g/dL 11.8-15.4 [facility] Blood leukocytes automated c ount (number/volume)Ordered By: Addi Ortega on 02-10-2022 WBC (Bld) [#/Vol] 7.3 10*3/uL 4.5-11.0 [facility] Cholesterol [Mass/volume] in Serum or PlasmaOrdered By: Addi Ortega on 02-10-2022 Cholesterol [Mass/Vol] 195 mg/dL 140-200 [facility] Comment on above: Chol less than 200 m g/dl low risk Chol 201-239 mg/dl borderline risk Chol 240 mg/dl and greater high risk Cholesterol in LDL Calc [Mas s/Vol]Ordered By: Addi Ortega on 02-10-2022 Cholesterol in LDL [Mass/Vol] 113 mg/dL 0-100 [facility] Comment on above: LDL ATP III CLASSIFI CATION LDL less than 100 mg/dL Optimal LDL 100-129 mg/dL Near or above optimal LDL 130-159 mg/dL Borderline high LDL 160-189 mg/dL High LDL greater than 189 mg/dL Very high Cholesterol in VLDL Calc [Ma ss/Vol]Ordered By: Addi Ortega on 02-10-2022 Cholesterol in VLDL [Mass/Vol] 26 mg/dL [facility] Creatinine and Glomerular fi ltration rate.predicted panel (S/P/Bld)Ordered By: Addi Ortega on 02-10-2022 Creatinine [Mass/Vol] 0.71 mg/dL 0.44-1.03 [facility] Eosinophils Auto (Bld) [#/Vo l]Ordered By: Addi Ortega on 02-10-2022 Eosinophils (Bld) [#/Vol] 0.1 10*3/uL 0.0-0.45 [facility] Eosinophils/100 WBC Auto (Bl d)Ordered By: Addi Ortega on 02-10-2022 Eosinophils/100 WBC (Bld) 1.5 % . [facility] Erythrocyte distribution wid th Auto (RBC) [Ratio]Ordered By: Addi Ortega on 02-10-2022 Erythrocyte distribution width (RBC) [Ratio] 14.0 % 11.9-15.3 [facility] Estimated glomerular filtrat ion rate (GFR) non- AmericanOrdered By: Addi Ortega on 02-10-2022 GFR/1.73 sq M.predicted among non-blacks MDRD (S/P/Bld) [Vol rate/Area] > 60 mL/Min [facility] Globulin Calc (S) [Mass/Vol] Ordered By: Addi Ortega on 02-10-2022 Globulin (S) [Mass/Vol] 2.8 g/dL [facility] Hematocrit Auto (Bld) [Volum e fraction]Ordered By: Addi Ortega on 02-10-2022 Hematocrit (Bld) [Volume fraction] 40.3 % 34.0-46.4 [facility] Laboratory - Chemistry and C hemistry - challengeOrdered By: Addi Ortega on 02-10-2022 Glucose [Mass/Vol] 90 mg/dL 70-100 [facility] Laboratory - Hematology and Cell countsOrdered By: Addi Ortega on 02-10-2022 Nucleated RBC/100 WBC (Bld) [Ratio] 0.1 % 0-0.5 [facility] Lymphocytes Auto (Bld) [#/Vo l]Ordered By: Addi Ortega on 02-10-2022 Lymphocytes (Bld) [#/Vol] 3.3 10*3/uL 1.00-4.8 [facility] Lymphocytes/100 WBC Auto (Bl d)Ordered By: Addi Ortega on 02-10-2022 Lymphocytes/100 WBC (Bld) 45.2 % . [facility] MCH Auto (RBC) [Entitic mass ]Ordered By: Addi Ortega on 02-10-2022 MCH (RBC) [Entitic mass] 33.0 pg 24.7-34.3 [facility] MCHC Auto (RBC) [Mass/Vol]Or dered By: Addi Ortega on 02-10-2022 MCHC (RBC) [Mass/Vol] 34.9 g/dL 32.0-35.0 [facility] MCV Auto (RBC) [Entitic vol] Ordered By: Addi Ortega on 02-10-2022 MCV (RBC) [Entitic vol] 94.6 fL 80-100 [facility] Monocyte %Ordered By: Addi Ortega on 02-10-2022 Monocyte % 134 mg/dL 35-149 [facility] Comment on above: TRIG ATP III CLASSIF ICATION TRIG less than 150 mg/dL Normal TRIG 150-199 mg/dL Borderline high TRIG 200-500 mg/dL High TRIG greater than 500 mg/dL Very high Standard traceable to the Center for Disease Conrtrol and Prevention (CDC) test method. Monocytes Auto (Bld) [#/Vol] Ordered By: Addi Ortega on 02-10-2022 Monocytes (Bld) [#/Vol] 0.5 10*3/uL 0.0-0.8 [facility] Monocytes/100 WBC Auto (Bld) Ordered By: Addi Ortega on 02-10-2022 Monocytes/100 WBC (Bld) 6.3 % . [facility] Neutrophils Auto (Bld) [#/Vo l]Ordered By: Addi Ortega on 02-10-2022 Neutrophils (Bld) [#/Vol] 3.4 10*3/uL 1.8-7.7 [facility] Neutrophils/100 WBC Auto (Bl d)Ordered By: Addi Ortega on 02-10-2022 Neutrophils/100 WBC (Bld) 46.6 % . [facility] No Panel InformationOrdered By: Addi Ortega on 02-10-2022 Estimated GFR () > 60 mL/Min [facility] Comment on above: GFR estimated refere nce range: According to KDOQI guidelines, <60 ml/min/1.73m2 is sufficient to diagnose a patient with chronic kidney disease. Nicotine Metabolite Negative Cutoff=25 [facility] Comment on above: Performed at: [address] [id number] Manager Mission: Catherine Mendoza MD, Phone: [phone] Pharmacy Creatinine Clearance (Chem N/A [facility] Platelet mean volume Auto (B ld) [Entitic vol]Ordered By: Addi Ortega on 02-10-2022 Platelet mean volume (Bld) [Entitic vol] 8.4 fL 6.3-10.7 [facility] Platelets Auto (Bld) [#/Vol] Ordered By: Addi Ortega on 02-10-2022 Platelets (Bld) [#/Vol] 321 10*3/uL 150-450 [facility] Protein [Mass/volume] in Ser um or PlasmaOrdered By: Addi Ortega on 02-10-2022 Protein [Mass/Vol] 6.9 g/dL 6.1-7.9 [facility] RBC Auto (Bld) [#/Vol]Ordere d By: Addi Ortega on 02-10-2022 RBC (Bld) [#/Vol] 4.26 10*6/uL 3.60-5.00 [facility] Serum or plasma alanine galaviz otransferase measurement without P-5'-P (enzymatic activiOrdered By: Addi Ortega on 02-10-2022 ALT No additional P-5'-P [Catalytic activity/Vol] 26 U/L 10-60 [facility] Serum or plasma albumin/glob ulin mass ratioOrdered By: Addi Ortega on 02-10-2022 Albumin/Globulin [Mass ratio] 1.5 {ratio} [facility] Serum or plasma alkaline hosea sphatase measurement (enzymatic activity/volume)Ordered By: Addi Ortega on 02-10-2022 ALP [Catalytic activity/Vol] 47 U/L 32-92 [facility] Serum or plasma aspartate am inotransferase measurement (enzymatic activity/volume)Ordered By: Addi Ortega on 02-10-2022 AST [Catalytic activity/Vol] 18 U/L 10-42 [facility] Serum or plasma calcium luis urement (mass/volume)Ordered By: Addi Ortega on 02-10-2022 Calcium [Mass/Vol] 9.3 mg/dL 8.2-10.2 [facility] Serum or plasma chloride radha surement (moles/volume)Ordered By: Addi Ortega on 02-10-2022 Chloride [Moles/Vol] 99 mmol/L 95-114 [facility] Serum or plasma high density lipoprotein (HDL) cholesterol measurementOrdered By: Addi Ortega on 02-10-2022 Cholesterol in HDL [Mass/Vol] 55 mg/dL 35-85 [facility] Comment on above: HDL CHOL ATP-III CLA SSIFICATION Cardiovascular Risk HDL > or equal to 60 mg/dL LOW HDL < 40 mg/dL HIGH Serum or plasma potassium me asurement (moles/volume)Ordered By: Addi Ortega on 02-10-2022 Potassium [Moles/Vol] 4.1 mmol/L 3.5-5.1 [facility] Serum or plasma sodium measu rement (moles/volume)Ordered By: Addi Ortega on 02-10-2022 Sodium [Moles/Vol] 135 mmol/L 136-146 [facility] Serum or plasma total biliru bin measurement (mass/volume)Ordered By: Addi Ortega on 02-10-2022 Bilirubin [Mass/Vol] 0.7 mg/dL 0.3-1.2 [facility] Serum or plasma total carbon dioxide measurement (moles/volume)Ordered By: Addi Ortega on 02-10-2022 CO2 [Moles/Vol] 23.3 mmol/L 22.0-30.0 [facility] Serum or plasma total choles terol/high density lipoprotein (HDL) cholesterol mass ratOrdered By: Addi Ortega on 02-10-2022 Cholesterol.total/Cho lesterol in HDL [Mass ratio] 3.5 {ratio} <5.0 [facility] Serum or plasma urea nitroge n measurement (mass/volume)Ordered By: Addi Ortega on 02-10-2022 Urea nitrogen [Mass/Vol] 17 mg/dL 9- [facility] TSH DL <= 0.005 mIU/L QnOrde red By: Addi Ortega on 02-10-2022 TSH Qn 57.67 m[IU]/L 0.45-5.33 [facility] No Panel Informationon 09-03 6 {mm/hr} Normal 0-34 [facility] DO Work Phone: Office Visit (Cardiology)on [...] All medical record entries made by the Scribe were at my direction and personally dictated [...] Vital Signs Recorded: 03Sep2021 10:02AMRecorded: 03Sep2021 09:55AM [id number], LUE, [id number], RUE, Sitting Pqvcilxdq40, LUE, [id number], RUE, Sitting Heart Rate72, Apical Height5 ft 7 in [id number] lb 9.6 oz BMI Luwwfaoked53.36 kg/m2 BSA Calculated2.05 Tobacco Useb) No EKG [...] . Sign (more content not included)... Normal [facility] Tobacco Screening.on 022 Tobacco use status [facility] Work Phone: Vital Signs Date Time Vital Sign Value Performing Clinician Facility 09-07-2024 14:44-0500 Body mass index (BMI) [Ratio] 39.75 kg/m2 Mya MCMILLAN Work Phone: [facility] 09-07-2024 14:44-0500 Body weight 115.12 kg Mya MCMILLAN Work Phone: [facility] 09-07-2024 14:44-0500 Diastolic blood pressure 82 mm[Hg] Mya MCMILLAN Work Phone: [facility] 09-07-2024 14:44-0500 Systolic blood pressure 120 mm[Hg] Mya MCMILLAN Work Phone: [facility] 09-06-2024 14:04-0500 Body temperature 97.88 [degF] Flash Franco [facility] 09-06-2024 14:04-0500 Diastolic blood pressure 77 mm[Hg] Flash Franco [facility] 09-06-2024 14:04-0500 Heart rate 101 /min Flash Franco [facility] 09-06-2024 14:04-0500 Respiratory rate 18 /min Flash Franco [facility] 09-06-2024 14:04-0500 SaO2% (BldA) [Mass fraction] 99 % Flash Franco [facility] 09-06-2024 14:04-0500 Systolic blood pressure 122 mm[Hg] Flash Franco [facility] 09-05-2024 15:45-0500 Hourly Rounding Rogelio Nath [facility] Comment on above: Result Comment: discharge instructions g ivelizabeth. monitors off and pt up to dress. 09-05-2024 15:35-0500 Hourly Rounding Rogelio Pham [facility] Comment on above: Result Comment: pt was able to keep spri te and lemon ice down. Wants to go home. 09-05-2024 14:49-0500 Hourly Rounding Rogelio Nath [facility] Comment on above: Result Comment: sprite, lemon ice and ju ice given per pt request. 09-05-2024 07:35-0500 Body temperature 98.24 [degF] Rogelio Nath [facility] 09-05-2024 07:35-0500 Diastolic blood pressure 42 mm[Hg] Rogelio Nath [facility] 09-05-2024 07:35-0500 Heart rate 109 /min Rogelio Nath [facility] 09-05-2024 07:35-0500 Mean blood pressure 65 mm[Hg] Rogelio Nath [facility] 09-05-2024 07:35-0500 Respiratory rate 18 /min Rogelio Nath [facility] 09-05-2024 07:35-0500 Systolic blood pressure 111 mm[Hg] Rogelio Nath [facility] 09-05-2024 07:30-0500 Blood Pressure Location Rogelio Nath [facility] 09-05-2024 04:32-0500 Blood Pressure Location Rogelio Nath [facility] 09-05-2024 04:32-0500 Body temperature 98.24 [degF] Rogelio Nath [facility] 09-05-2024 04:32-0500 Diastolic blood pressure 72 mm[Hg] Rogelio Nath [facility] 09-05-2024 04:32-0500 Heart rate 104 /min Rogelio Nath [facility] 09-05-2024 04:32-0500 Mean blood pressure 90 mm[Hg] Rogelio Nath [facility] 09-05-2024 04:32-0500 Respiratory rate 16 /min Rogelio Nath [facility] 09-05-2024 04:32-0500 SaO2% (BldA) [Mass fraction] 98 % Rogelio Nath [facility] 09-05-2024 04:32-0500 Systolic blood pressure 127 mm[Hg] Rogelio Nath [facility] 09-05-2024 04:00-0500 Diastolic blood pressure 64 mm[Hg] Rogelio Nath [facility] 09-05-2024 04:00-0500 Heart rate 115 /min Rogeloi Nath [facility] 09-05-2024 04:00-0500 Mean blood pressure 86 mm[Hg] Rogelio Nath [facility] 09-05-2024 04:00-0500 Systolic blood pressure 129 mm[Hg] Rogelio Nath [facility] 09-05-2024 03:06-0500 Body temperature 97.7 [degF] Rogelio Nath [facility] 09-05-2024 03:06-0500 Heart rate 128 /min Rogelio Nath [facility] 09-05-2024 03:06-0500 Respiratory rate 20 /min Rogelio Nath [facility] 09-05-2024 03:06-0500 SaO2% (BldA) [Mass fraction] 98 % Rogelio Nath [facility] 08-25-2024 12:21-0500 [facility] 08-25-2024 12:21-0500 Body mass index (BMI) [Ratio] 39.6 kg/m2 [facility] Work Phone: [facility] 08-25-2024 12:21-0500 Body weight 114.75 kg Darwin Hlidacky.czerwood CONCESSIONIST Work Phone: [facility] 08-25-2024 12:21-0500 Diastolic blood pressure 84 mm[Hg] Darwin Roberterwood CONCESSIONIST Work Phone: [facility] 08-25-2024 12:21-0500 Heart rate 108 /min Darwin Roberterwood CONCESSIONIST Work Phone: [facility] 08-25-2024 12:21-0500 Respiratory rate 18 /min Darwin Roberterwood CONCESSIONIST Work Phone: [facility] 08-25-2024 12:21-0500 SaO2% (BldA) [Mass fraction] 98 % Darwin Robertermacy CONCESSIONIST Work Phone: [facility] 08-25-2024 12:21-0500 Systolic blood pressure 132 mm[Hg] Darwin Roberterwood CONCESSIONIST Work Phone: [facility] 08-23-2024 11:00-0500 Body mass index (BMI) [Ratio] 40.16 kg/m2 Brain Seamus DO Work Phone: [facility] 08-23-2024 11:00-0500 Body weight 116.3 kg Brain Seamus DO Work Phone: [facility] 08-23-2024 11:00-0500 Diastolic blood pressure 78 mm[Hg] Brain Seamus DO Work Phone: [facility] 08-23-2024 11:00-0500 Systolic blood pressure 120 mm[Hg] Brain Seamus DO Work Phone: [facility] 07-11-2024 13:09-0500 Body mass index (BMI) [Ratio] 38.97 kg/m2 Brain Seamus DO Work Phone: [facility] 07-11-2024 13:09-0500 Body weight 112.86 kg Brain Seamus DO Work Phone: [facility] 07-11-2024 13:09-0500 Diastolic blood pressure 76 mm[Hg] Brain Seamus DO Work Phone: [facility] 07-11-2024 13:09-0500 Systolic blood pressure 120 mm[Hg] Brain Seamus DO Work Phone: [facility] 06-28-2024 08:04-0500 Body weight Darwin Jones CONCESSIONIST Work Phone: [facility] Comment on above: Not provided. 2024 14:13-0500 Diastolic blood pressure 78 mm[Hg] Hayden Reilly MD Work Phone: [facility] 2024 14:13-0500 Heart rate 88 /min Hayden Reilly MD Work Phone: [facility] 2024 14:13-0500 Systolic blood pressure 125 mm[Hg] Hayden Reilly MD Work Phone: [facility] 2024 13:18-0500 Body height 170.2 cm Hayden Reilly MD Work Phone: [facility] 06-12-2024 10:19-0400 Body mass index (BMI) [Ratio] 38.37 kg/m2 Brian Seamus DO Work Phone: [facility] 06-12-2024 10:19-0400 Body weight 111.13 kg Brain Seamus DO Work Phone: [facility] 06-12-2024 10:19-0400 Diastolic blood pressure 80 mm[Hg] Brain Seamus DO Work Phone: [facility] 06-12-2024 10:19-0400 Systolic blood pressure 122 mm[Hg] Brani Seamus DO Work Phone: [facility] 05-11-2024 11:04-0400 Body height 170.18 cm CONCESSIONIST Darwin Jones Work Phone: [facility] 05-11-2024 11:04-0400 Body mass index (BMI) [Ratio] 38.2 kg/m2 CONCESSIONIST Darwin [employer] Work Phone: [facility] 05-11-2024 11:04-0400 Body temperature 97.8 [degF] CONCESSIONIST Darwin H[employer]idacky.[employer] Work Phone: [facility] 05-11-2024 11:04-0400 Body weight 110.67 kg CONCESSIONIST Darwin [employer]idacky[employer] Work Phone: [facility] 05-11-2024 11:04-0400 Diastolic blood pressure 74 mm[Hg] CONCESSIONIST Darwin [employer]idacky[employer] Work Phone: [facility] 05-11-2024 11:04-0400 Heart rate 90 /min CONCESSIONIST Darwin H[employer]idacky[employer] Work Phone: [facility] 05-11-2024 11:04-0400 Respiratory rate 20 /min CONCESSIONIST Darwin H[employer]idacky[employer] Work Phone: [facility] 05-11-2024 11:04-0400 SaO2% (BldA) [Mass fraction] 98 % CONCESSIONIST Darwin [employer]idacky[employer] Work Phone: [facility] 05-11-2024 11:04-0400 Systolic blood pressure 126 mm[Hg] CONCESSIONIST Darwin [employer]idacky[employer] Work Phone: [facility] 05-10-2024 13:50-0400 Body mass index (BMI) [Ratio] 38.39 kg/m2 Brain Seamus DO Work Phone: [facility] 05-10-2024 13:50-0400 Body weight 111.19 kg Brain Seamus DO Work Phone: [facility] 05-10-2024 13:50-0400 Diastolic blood pressure 76 mm[Hg] Brain Seamus DO Work Phone: [facility] 05-10-2024 13:50-0400 Systolic blood pressure 120 mm[Hg] Brain Seamus DO Work Phone: [facility] 04-20-2024 10:37-0400 Body mass index (BMI) [Ratio] 38.53 kg/m2 Brain Seamus DO Work Phone: [facility] 04-20-2024 10:37-0400 Body weight 111.58 kg Brain Seamus DO Work Phone: [facility] 04-20-2024 10:37-0400 Diastolic blood pressure 76 mm[Hg] Brain Seamus DO Work Phone: [facility] 04-20-2024 10:37-0400 Systolic blood pressure 122 mm[Hg] Brain Seamus DO Work Phone: [facility] 04-07-2024 09:42-0400 Body mass index (BMI) [Ratio] 38.86 kg/m2 Nom Nurse [facility] 04-07-2024 09:42-0400 Body weight 112.55 kg Nom Nurse [facility] 04-07-2024 09:42-0400 Diastolic blood pressure 70 mm[Hg] Nom Nurse [facility] 04-07-2024 09:42-0400 Systolic blood pressure 120 mm[Hg] Nom Nurse [facility] 03-18-2024 11:50-0400 Diastolic blood pressure 83 mm[Hg] [place] [facility] 03-18-2024 11:50-0400 Heart rate 75 /min [place] [facility] 03-18-2024 11:50-0400 Mean blood pressure 97 mm[Hg] Toan Steine [facility] 03-18-2024 11:50-0400 Respiratory rate 16 /min Toan Steine [facility] 03-18-2024 11:50-0400 SaO2% (BldA) [Mass fraction] 98 % Toan Steine [facility] 03-18-2024 11:50-0400 Systolic blood pressure 126 mm[Hg] Toan Jaya [facility] 03-18-2024 09:46-0400 Hourly Rounding [place] [facility] 03-18-2024 09:11-0400 Hourly Rounding [place] [facility] 03-18-2024 08:10-0400 Body temperature 98.6 [degF] [place] [facility] 03-18-2024 08:10-0400 Diastolic blood pressure 91 mm[Hg] [place] [facility] 03-18-2024 08:10-0400 Heart rate 98 /min [place] [facility] 03-18-2024 08:10-0400 Hourly Rounding [place] [facility] 03-18-2024 08:10-0400 Respiratory rate 17 /min [place] [facility] 03-18-2024 08:10-0400 SaO2% (BldA) [Mass fraction] 98 % [place] [facility] 03-18-2024 08:10-0400 Systolic blood pressure 135 mm[Hg] [place] [facility] 01-25-2024 08:59-0400 Body height 170.18 cm CONCESSIONISTAlayna Jones Work Phone: [facility] 01-25-2024 08:59-0400 Body mass index (BMI) [Ratio] 37.4 kg/m2 CONCESSIONISTAlayna Joneserwood Work Phone: [facility] 01-25-2024 08:59-0400 Body temperature 98 [degF] CONCESSIONISTAlayna LaraSphynKx The[employer] Work Phone: [facility] 01-25-2024 08:59-0400 Body weight 108.4 kg CONCESSIONIST Darwin Easterwood Work Phone: [facility] 01-25-2024 08:59-0400 Diastolic blood pressure 80 mm[Hg] CONCESSIONIST Darwin Easterwood Work Phone: [facility] 01-25-2024 08:59-0400 Heart rate 98 /min CONCESSIONIST Darwin Easterwood Work Phone: [facility] 01-25-2024 08:59-0400 Respiratory rate 20 /min CONCESSIONIST Darwin Easterwood Work Phone: [facility] 01-25-2024 08:59-0400 SaO2% (BldA) [Mass fraction] 99 % CONCESSIONIST Darwin Easterwood Work Phone: [facility] 01-25-2024 08:59-0400 Systolic blood pressure 122 mm[Hg] CONCESSIONIST Darwin Easterwood Work Phone: [facility] 12-24-2023 09:56-0400 Body height 170.18 cm CONCESSIONIST Darwin Easterwood Work Phone: [facility] 12-24-2023 09:56-0400 Body mass index (BMI) [Ratio] 37.7 kg/m2 CONCESSIONIST Darwin Easterwood Work Phone: [facility] 12-24-2023 09:56-0400 Body temperature 97.6 [degF] CONCESSIONIST Darwin Easterwood Work Phone: [facility] 12-24-2023 09:56-0400 Body weight 109.31 kg CONCESSIONIST Darwin Easterwood Work Phone: [facility] 12-24-2023 09:56-0400 Diastolic blood pressure 84 mm[Hg] CONCESSIONIST Darwin Easterwood Work Phone: [facility] 12-24-2023 09:56-0400 Heart rate 102 /min CONCESSIONIST Darwin Easterwood Work Phone: [facility] 12-24-2023 09:56-0400 Respiratory rate 20 /min CONCESSIONIST Darwin Eastermacy Work Phone: [facility] 12-24-2023 09:56-0400 SaO2% (BldA) [Mass fraction] 98 % CONCESSIONIST Darwin Jonesermacy Work Phone: [facility] 12-24-2023 09:56-0400 Systolic blood pressure 126 mm[Hg] CONCESSIONIST Darwin Easterwood Work Phone: [facility] 11-25-2023 09:01-0400 Body height 170.18 cm CONCESSIONISTAlayna Jonesermacy Work Phone: [facility] 11-25-2023 09:01-0400 Body mass index (BMI) [Ratio] 37.7 kg/m2 CONCESSIONISTAlayna Jonesermacy Work Phone: [facility] 11-25-2023 09:01-0400 Body temperature 97 [degF] CONCESSIONIST Darwin Jonesermacy Work Phone: [facility] 11-25-2023 09:01-0400 Body weight 109.31 kg CONCESSIONISTAlayna Jonesermacy Work Phone: [facility] 11-25-2023 09:01-0400 Diastolic blood pressure 76 mm[Hg] CONCESSIONIST Darwin Easterwood Work Phone: [facility] 11-25-2023 09:01-0400 Heart rate 95 /min CONCESSIONIST Darwin Eastermacy Work Phone: [facility] 11-25-2023 09:01-0400 Respiratory rate 20 /min CONCESSIONIST Darwin Easterwood Work Phone: [facility] 11-25-2023 09:01-0400 SaO2% (BldA) [Mass fraction] 98 % CONCESSIONIST Darwin Easterwood Work Phone: [facility] 11-25-2023 09:01-0400 Systolic blood pressure 120 mm[Hg] CONCESSIONIST Darwin Easterwood Work Phone: [facility] 11-18-2023 08:03-0400 Body weight 110.68 kg Ruby Whittington MD Work Phone: [facility] 11-18-2023 08:03-0400 Diastolic blood pressure 92 mm[Hg] Ruby Whittington MD Work Phone: [facility] 11-18-2023 08:03-0400 Heart rate 100 /min Ruby Whittington MD Work Phone: [facility] 11-18-2023 08:03-0400 Systolic blood pressure 132 mm[Hg] Ruby Whittington MD Work Phone: [facility] 10-20-2023 09:05-0500 Body height 170.18 cm CONCESSIONISTAlayna Orosco Eastermacy Work Phone: [facility] 10-20-2023 09:05-0500 Body mass index (BMI) [Ratio] 38.3 kg/m2 CONCESSIONIST Darwin Easterwood Work Phone: [facility] 10-20-2023 09:05-0500 Body temperature 98 [degF] CONCESSIONIST Darwin Easterwood Work Phone: [facility] 10-20-2023 09:05-0500 Body weight 111.13 kg CONCESSIONIST Darwin Easterwood Work Phone: [facility] 10-20-2023 09:05-0500 Diastolic blood pressure 78 mm[Hg] CONCESSIONIST Darwin Easterwood Work Phone: [facility] 10-20-2023 09:05-0500 Heart rate 82 /min CONCESSIONISTAlayna Edgara Easterwood Work Phone: [facility] 10-20-2023 09:05-0500 Respiratory rate 20 /min CONCESSIONIST Darwin Easterwood Work Phone: [facility] 10-20-2023 09:05-0500 SaO2% (BldA) [Mass fraction] 98 % SHIRLEY Jones Work Phone: [facility] 10-20-2023 09:05-0500 Systolic blood pressure 124 mm[Hg] CONCESSIONISTAlayna Jones Work Phone: [facility] 09-29-2023 10:41-0500 Blood Pressure Location [facility] 09-29-2023 10:41-0500 Body temperature 98.24 [degF] [facility] 09-29-2023 10:41-0500 Diastolic blood pressure 78 mm[Hg] [facility] 09-29-2023 10:41-0500 Heart rate 95 /min [facility] 09-29-2023 10:41-0500 SaO2% (BldA) [Mass fraction] 97 % [facility] 09-29-2023 10:41-0500 Systolic blood pressure 122 mm[Hg] [facility] 09-21-2023 09:00-0500 Body height 170.18 cm Darwin Jones Other [employer] Other 09-21-2023 09:00-0500 Body mass index (BMI) [Ratio] 38.37 kg/m2 Darwin Jones Other [employer] Other 09-21-2023 09:00-0500 Body temperature 98 [degF] Darwin Easterwood Other [employer] Other 09-21-2023 09:00-0500 Body weight 111.13 kg Darwin Easterwood Other [employer] Other 09-21-2023 09:00-0500 Diastolic blood pressure 84 mm[Hg] Darwin Easterwood Other [employer] Other 09-21-2023 09:00-0500 Respiratory rate 20 /min Darwin Easterwood Other [employer] Other 09-21-2023 09:00-0500 SaO2% (BldA) [Mass fraction] 98 % Darwin Easterwood Other [employer] Other 09-21-2023 09:00-0500 Systolic blood pressure 126 mm[Hg] Darwin Easterwood Other [employer] Other 08-25-2023 09:30-0500 Body height 170.18 cm Darwin Easterwood Other [facility] 08-25-2023 09:30-0500 Body mass index (BMI) [Ratio] 39.46 kg/m2 Darwin Easterwood Other [employer] Other 08-25-2023 09:30-0500 Body temperature 97.6 [degF] Darwin Easterwood Other [employer] Other 08-25-2023 09:30-0500 Body weight 114.31 kg Darwin Easterwood Other [employer] Other 08-25-2023 09:30-0500 Body weight 114.3 kg CONCESSIONIST Darwin Easterwood Work Phone: [facility] 08-25-2023 09:30-0500 Diastolic blood pressure 80 mm[Hg] Darwin Easterwood Other [facility] 08-25-2023 09:30-0500 Respiratory rate 20 /min Darwin Easterwood Other [employer] Other 08-25-2023 09:30-0500 SaO2% (BldA) [Mass fraction] 98 % Darwin Easterwood Other [employer] Other 08-25-2023 09:30-0500 Systolic blood pressure 120 mm[Hg] Darwin Easterwood Other [facility] 07-23-2023 09:30-0500 Body height 170.18 cm CONCESSIONIST Darwin Easterwood Work Phone: [facility] 07-23-2023 09:30-0500 Body weight 116.57 kg CONCESSIONIST Darwin Easterwood Work Phone: [facility] 07-23-2023 09:30-0500 Diastolic blood pressure 80 mm[Hg] CONCESSIONIST Darwin Easterwood Work Phone: [facility] 07-23-2023 09:30-0500 Systolic blood pressure 118 mm[Hg] CONCESSIONIST Darwin Easterwood Work Phone: [facility] 06-23-2023 09:30-0500 Body height 170.18 cm Darwin Easterwood Other [employer] Other 06-23-2023 09:30-0500 Body mass index (BMI) [Ratio] 40.4 kg/m2 Darwin Easterwood Other [employer] Other 06-23-2023 09:30-0500 Body temperature 97.4 [degF] Darwin Easterwood Other [employer] Other 06-23-2023 09:30-0500 Body weight 117.03 kg Darwin Easterwood Other [employer] Other 06-23-2023 09:30-0500 Diastolic blood pressure 78 mm[Hg] Darwin Easterwood Other [employer] Other 06-23-2023 09:30-0500 Respiratory rate 20 /min Darwin Easterwood Other [employer] Other 06-23-2023 09:30-0500 SaO2% (BldA) [Mass fraction] 98 % Darwin Easterwood Other [employer] Other 06-23-2023 09:30-0500 Systolic blood pressure 120 mm[Hg] Darwin Easterwood Other [employer] Other 06-08-2023 14:00-0400 Body temperature 97.2 [degF] Francy Gan PA-C Work Phone: [facility] 05-26-2023 10:30-0400 Body height 170.18 cm Darwin Easterwood Other [employer] Other 05-26-2023 10:30-0400 Body mass index (BMI) [Ratio] 41.5 kg/m2 Darwin Easterwood Other [employer] Other 05-26-2023 10:30-0400 Body temperature 98.4 [degF] Darwin Easterwood Other [employer] Other 05-26-2023 10:30-0400 Body weight 120.2 kg Darwin Easterwood Other [employer] Other 05-26-2023 10:30-0400 Diastolic blood pressure 70 mm[Hg] Darwin Easterwood Other [employer] Other 05-26-2023 10:30-0400 Respiratory rate 20 /min Darwin Easterwood Other [employer] Other 05-26-2023 10:30-0400 SaO2% (BldA) [Mass fraction] 97 % Darwin Easterwood Other [employer] Other 05-26-2023 10:30-0400 Systolic blood pressure 112 mm[Hg] Darwin Easterwood Other [employer] Other 04-28-2023 09:15-0400 Body height 170.18 cm Darwin Easterwood Other [employer] Other 04-28-2023 09:15-0400 Body mass index (BMI) [Ratio] 41.34 kg/m2 Darwin Easterwood Other [employer] Other 04-28-2023 09:15-0400 Body temperature 97.2 [degF] Darwin Easterwood Other [employer] Other 04-28-2023 09:15-0400 Body weight 119.75 kg Darwin Easterwood Other [employer] Other 04-28-2023 09:15-0400 Diastolic blood pressure 82 mm[Hg] Darwin Easterwood Other [employer] Other 04-28-2023 09:15-0400 Respiratory rate 20 /min Darwin Easterwood Other [employer] Other 04-28-2023 09:15-0400 SaO2% (BldA) [Mass fraction] 97 % Darwin Easterwood Other [employer] Other 04-28-2023 09:15-0400 Systolic blood pressure 120 mm[Hg] Darwin Easterwood Other [employer] Other 04-16-2023 11:00-0400 Body height 170.18 cm Darwin Easterwood Other [employer] Other 04-16-2023 11:00-0400 Body mass index (BMI) [Ratio] 41.03 kg/m2 Darwin Easterwood Other [employer] Other 04-16-2023 11:00-0400 Body temperature 97.8 [degF] Darwin Easterwood Other [employer] Other 04-16-2023 11:00-0400 Body weight 118.84 kg Darwin Easterwood Other [employer] Other 04-16-2023 11:00-0400 Diastolic blood pressure 80 mm[Hg] Darwin Easterwood Other [employer] Other 04-16-2023 11:00-0400 Respiratory rate 20 /min Darwin Easterwood Other [employer] Other 04-16-2023 11:00-0400 SaO2% (BldA) [Mass fraction] 98 % Darwin Easterwood Other [facility] Other 04-16-2023 11:00-0400 Systolic blood pressure 120 mm[Hg] Darwin Jones Other [facility] [employer] Other 03-22-2023 22:51-0400 Diastolic blood pressure 74 mm[Hg] Kaylinn Dokken [facility] 03-22-2023 22:51-0400 Heart rate 80 /min Kaylinn Dokken [facility] 03-22-2023 22:51-0400 Mean blood pressure 92 mm[Hg] Kaylinn Dokken [facility] 03-22-2023 22:51-0400 Respiratory rate 16 /min Kaylinn Dokken [facility] 03-22-2023 22:51-0400 SaO2% (BldA) [Mass fraction] 98 % Kaylinn Dokken [facility] 03-22-2023 22:51-0400 Systolic blood pressure 128 mm[Hg] Kaylinn Dokken [facility] 03-22-2023 21:24-0400 Heart rate 76 /min Kaylinn Dokken [facility] 03-22-2023 21:24-0400 Respiratory rate 16 /min Kaylinn Dokken [facility] 03-22-2023 21:24-0400 SaO2% (BldA) [Mass fraction] 97 % Kaylinn Dokken [facility] 03-22-2023 19:54-0400 Body temperature 98.06 [degF] Kaylinn Dokken [facility] 03-22-2023 19:54-0400 Diastolic blood pressure 89 mm[Hg] Annan Dokken [facility] 03-22-2023 19:54-0400 Heart rate 81 /min Annan kken [facility] 03-22-2023 19:54-0400 Respiratory rate 18 /min Gabriel Curtis [facility] 03-22-2023 19:54-0400 SaO2% (BldA) [Mass fraction] 99 % Gabriel Curtis [facility] 03-22-2023 19:54-0400 Systolic blood pressure 138 mm[Hg] Gabriel Ramosen [facility] 03-22-2023 15:18-0400 Body height 170.18 cm CONCESSIONIST Darwin Easterwood Work Phone: [facility] 03-22-2023 15:18-0400 Body temperature 98.2 [degF] CONCESSIONIST Darwin Easterwood Work Phone: [facility] 03-22-2023 15:18-0400 Body weight 120.5 kg CONCESSIONIST Darwin Easterwood Work Phone: [facility] 03-22-2023 15:18-0400 Diastolic blood pressure 74 mm[Hg] CONCESSIONIST Darwin Easterwood Work Phone: [facility] 03-22-2023 15:18-0400 Heart rate 92 /min CONCESSIONIST Darwin Easterwood Work Phone: [facility] 03-22-2023 15:18-0400 Respiratory rate 20 /min CONCESSIONIST Darwin Easterwood Work Phone: [facility] 03-22-2023 15:18-0400 SaO2% (BldA) [Mass fraction] 97 % CONCESSIONISTAlayna Orosco BDA Work Phone: [facility] 03-22-2023 15:18-0400 Systolic blood pressure 175 mm[Hg] SHIRLEY Orosco [facility] Work Phone: [facility] 10-05-2022 09:00-0500 Body height 170.18 cm Ofelia Missler Other [employer] Other 10-05-2022 09:00-0500 Body mass index (BMI) [Ratio] 37.21 kg/m2 Ofelia Missler Other [employer] Other 10-05-2022 09:00-0500 Body weight 107.78 kg Ofelia Missler Other [employer] Other 10-05-2022 09:00-0500 Diastolic blood pressure 45 mm[Hg] Ofelia Missler Other [employer] Other 10-05-2022 09:00-0500 Respiratory rate 18 /min Ofelia Missler Other [employer] Other 10-05-2022 09:00-0500 SaO2% (BldA) [Mass fraction] 97 % Ofelia Missler Other [employer] Other 10-05-2022 09:00-0500 Systolic blood pressure 100 mm[Hg] Ofelia Missler Other [employer] Other 09-02-2022 11:30-0500 Body height 170.18 cm Ofelia Missler Other [employer] Other 09-02-2022 11:30-0500 Body mass index (BMI) [Ratio] 38.04 kg/m2 Ofelia Missler Other [employer] Other 09-02-2022 11:30-0500 Body weight 110.18 kg Ofelia Missler Other [employer] Other 09-02-2022 11:30-0500 Diastolic blood pressure 79 mm[Hg] Ofelia Missler Other [employer] Other 09-02-2022 11:30-0500 Respiratory rate 18 /min Ofelia Missler Other [employer] Other 09-02-2022 11:30-0500 SaO2% (BldA) [Mass fraction] 96 % Ofelia Missler Other [employer] Other 09-02-2022 11:30-0500 Systolic blood pressure 119 mm[Hg] Ofelia Missler Other [employer] Other 08-25-2022 14:00-0500 Body height 170.18 cm Lilly Fitt Other [employer] Other 08-25-2022 14:00-0500 Body mass index (BMI) [Ratio] 38.01 kg/m2 Lilly Fitt Other [employer] Other 08-25-2022 14:00-0500 Body weight 110.09 kg Lilly Fitt Other [employer] Other 07-31-2022 09:45-0500 Body height 170.18 cm Ofelia Missler Other [employer] Other 07-31-2022 09:45-0500 Body mass index (BMI) [Ratio] 38.2 kg/m2 Ofelia Missler Other [employer] Other 07-31-2022 09:45-0500 Body weight 110.63 kg Ofelia Missler Other [employer] Other 07-31-2022 09:45-0500 Diastolic blood pressure 78 mm[Hg] Ofelia Missler Other [employer] Other 07-31-2022 09:45-0500 Respiratory rate 18 /min Ofelia Missler Other [employer] Other 07-31-2022 09:45-0500 SaO2% (BldA) [Mass fraction] 96 % Ofelia Missler Other [employer] Other 07-31-2022 09:45-0500 Systolic blood pressure 135 mm[Hg] Ofelia Missler Other [employer] Other 07-14-2022 08:49-0500 Body height 170.5 cm Ruby Whittington MD Work Phone: [facility] 07-14-2022 08:49-0500 Body weight 111.58 kg Ruby Whittington MD Work Phone: [facility] 07-14-2022 08:49-0500 Diastolic blood pressure 73 mm[Hg] Ruby Whittington MD Work Phone: [facility] 07-14-2022 08:49-0500 Heart rate 92 /min Ruby Whittington MD Work Phone: [facility] 07-14-2022 08:49-0500 Systolic blood pressure 140 mm[Hg] Ruby Whittington MD Work Phone: [facility] 06-17-2022 15:45-0400 Body height 170.18 cm Ofelia Missler Other [employer] Other 06-17-2022 15:45-0400 Body mass index (BMI) [Ratio] 38.99 kg/m2 Ofelia Missler Other [employer] Other 06-17-2022 15:45-0400 Body weight 112.95 kg Ofelia Missler Other [employer] Other 06-17-2022 15:45-0400 Diastolic blood pressure 90 mm[Hg] Ofelia Missler Other [employer] Other 06-17-2022 15:45-0400 Respiratory rate 18 /min Ofelia Missler Other [employer] Other 06-17-2022 15:45-0400 SaO2% (BldA) [Mass fraction] 96 % Ofelia Missler Other [employer] Other 06-17-2022 15:45-0400 Systolic blood pressure 140 mm[Hg] Ofelia Missler Other [employer] Other 06-04-2022 13:00-0400 Body height 170.18 cm Sima Ross Other [employer] Other 06-04-2022 13:00-0400 Body mass index (BMI) [Ratio] 38.37 kg/m2 Sima Ross Other [employer] Other 06-04-2022 13:00-0400 Body temperature 98.6 [degF] Sima Ross Other [employer] Other 06-04-2022 13:00-0400 Body weight 111.13 kg Sima Vandana Other [employer] Other 06-04-2022 13:00-0400 Diastolic blood pressure 83 mm[Hg] Sima Vandana Other [employer] Other 06-04-2022 13:00-0400 Respiratory rate 18 /min Sima Ross Other [employer] Other 06-04-2022 13:00-0400 SaO2% (BldA) [Mass fraction] 99 % Sima Ross Other [employer] Other 06-04-2022 13:00-0400 Systolic blood pressure 124 mm[Hg] Sima Vandana Other [employer] Other 05-27-2022 12:15-0400 Body height 170.18 cm Lilly Fitsonia Other [employer] Other 05-18-2022 09:30-0400 Body height 170.18 cm Ofelia cassidy Other [employer] Other 05-18-2022 09:30-0400 Body mass index (BMI) [Ratio] 39.37 kg/m2 Ofelia Missler Other [employer] Other 05-18-2022 09:30-0400 Body temperature 98.1 [degF] Ofelia Missler Other [employer] Other 05-18-2022 09:30-0400 Body weight 114.04 kg Ofelia Missler Other [employer] Other 05-18-2022 09:30-0400 Diastolic blood pressure 80 mm[Hg] Ofelia Missler Other [employer] Other 05-18-2022 09:30-0400 Respiratory rate 18 /min Ofelia Missler Other [employer] Other 05-18-2022 09:30-0400 SaO2% (BldA) [Mass fraction] 99 % Ofelia Missler Other [employer] Other 05-18-2022 09:30-0400 Systolic blood pressure 115 mm[Hg] Ofelia Missler Other [employer] Other 04-17-2022 09:30-0400 Body height 170.18 cm [employer] Other [employer] Other 04-17-2022 09:30-0400 Body mass index (BMI) [Ratio] 39.15 kg/m2 [employer] Other [employer] Other 04-17-2022 09:30-0400 Body temperature 96.9 [degF] [employer] Other [employer] Other 04-17-2022 09:30-0400 Body weight 113.4 kg Darwin BDA Other [employer] Other 04-17-2022 09:30-0400 Diastolic blood pressure 82 mm[Hg] Darwin BDA Other [employer] Other 04-17-2022 09:30-0400 Respiratory rate 20 /min [employer] Other [employer] Other 04-17-2022 09:30-0400 SaO2% (BldA) [Mass fraction] 99 % Darwin Easterwood Other [employer] Other 04-17-2022 09:30-0400 Systolic blood pressure 124 mm[Hg] Darwin Easterwood Other [employer] Other 02-18-2022 21:41-0400 Diastolic blood pressure 88 mm[Hg] Fazal Antoni [facility] 02-18-2022 21:41-0400 Heart rate 84 /min Fazal Antoni [facility] 02-18-2022 21:41-0400 Mean blood pressure 101 mm[Hg] Fazal Antoni [facility] 02-18-2022 21:41-0400 Respiratory rate 17 /min Fazal Antoni [facility] 02-18-2022 21:41-0400 SaO2% (BldA) [Mass fraction] 98 % Darwin Hlidacky[employer]czerwood Other [employer] Other 02-18-2022 21:41-0400 Systolic blood pressure 126 mm[Hg] Fazal Antoni [facility] 02-18-2022 20:42-0400 gluc 106 mg/dL Fazal Antoni [facility] 02-18-2022 20:42-0400 gluc Fazal Antoni [facility] 02-18-2022 20:33-0400 Body temperature 98.06 [degF] Fazal Antoni [facility] 02-18-2022 20:33-0400 Diastolic blood pressure 99 mm[Hg] Fazal Antoni [facility] 02-18-2022 20:33-0400 Heart rate 99 /min Fazal Antoni [facility] 02-18-2022 20:33-0400 Respiratory rate 18 /min Fazal Antoni [facility] 02-18-2022 20:33-0400 Systolic blood pressure 153 mm[Hg] Fazal Antoni [facility] 02-18-2022 10:00-0400 Body height 170.18 cm Darwin [employer] Other [employer] Other 02-18-2022 10:00-0400 Body mass index (BMI) [Ratio] 38.52 kg/m2 Darwin [employer]id[employer] Other [employer] Other 02-18-2022 10:00-0400 Body temperature 97 [degF] Darwin Easterwood Other [employer] Other 02-18-2022 10:00-0400 Body weight 111.59 kg Darwin Easterwood Other [employer] Other 02-18-2022 10:00-0400 Diastolic blood pressure 82 mm[Hg] Darwin Easterwood Other [employer] Other 02-18-2022 10:00-0400 Respiratory rate 20 /min Darwin Easterwood Other [employer] Other 02-18-2022 10:00-0400 Systolic blood pressure 118 mm[Hg] Darwin Easterwood Other [employer] Other 02-11-2022 12:00-0400 Body height 170.18 cm Darwincary Jonesermacy Other [employer] Other 02-11-2022 12:00-0400 Body mass index (BMI) [Ratio] 37.9 kg/m2 Darwin Easterwood Other [employer] Other 02-11-2022 12:00-0400 Body temperature 97.2 [degF] Darwincary Jonesermacy Other [employer] Other 02-11-2022 12:00-0400 Body weight 109.77 kg Darwin Robertermacy Other [employer] Other 02-11-2022 12:00-0400 Diastolic blood pressure 88 mm[Hg] Darwin Easterwood Other [employer] Other 02-11-2022 12:00-0400 Respiratory rate 20 /min Darwin Roberterwood Other [employer] Other 02-11-2022 12:00-0400 SaO2% (BldA) [Mass fraction] 98 % Darwin Easterwood Other [employer] Other 02-11-2022 12:00-0400 Systolic blood pressure 126 mm[Hg] Darwin Easterwood Other [employer] Other 09-03-2021 10:02-0500 Diastolic blood pressure 86 mm[Hg] Unknown Unknown [employer] 600 DO Work Phone: 09-03-2021 10:02-0500 Systolic blood pressure 110 mm[Hg] Unknown Unknown [facility] [employer] 600 DO Work Phone: 09-03-2021 09:55-0500 Body height 170.18 cm Unknown Unknown [facility] [employer] 600 DO Work Phone: 09-03-2021 09:55-0500 Body mass index (BMI) [Ratio] 32.36 kg/m2 Unknown Unknown [facility] [employer] 600 DO Work Phone: 09-03-2021 09:55-0500 Body surface area Derived from formula 2.05 m2 Unknown Unknown [facility] [employer] 600 DO Work Phone: 09-03-2021 09:55-0500 Body weight 93.71 kg Unknown Unknown [facility] [employer] 600 DO Work Phone: 09-03-2021 09:55-0500 Diastolic blood pressure 84 mm[Hg] Unknown Unknown [facility] [employer] 600 DO Work Phone: 09-03-2021 09:55-0500 Heart rate 72 /min Unknown Unknown [facility] [employer] 600 DO Work Phone: 09-03-2021 09:55-0500 Systolic blood pressure 122 mm[Hg] Unknown Unknown [facility] [employer] 600 DO Work Phone: Encounters Encounter Date Encounter Type Care Provider Facility Start: 09-11-2024 End: 09-11-2024 Clinisync Result Encounter Mya MCMILLAN Work Phone: [facility] Unsolicited Start: 09-11-2024 End: 09-11-2024 Clinisync Result Encounter Mya MCMILLAN Work Phone: [facility] Unsolicited Start: 09-07-2024 End: 09-07-2024 flow sheet Mya MCMILLAN Work Phone: [facility] Comment on above: Third trimester preg gwen; 31 weeks gestation of ; size inconsistent with dates Start: 09-07-2024 End: 09-07-2024 ambulatory MYA FINCH Not Available Start: 09-07-2024 End: 09-07-2024 Bamboo flowsheet Mya MCMILLAN Work Phone: [facility] Start: 09-07-2024 End: 09-07-2024 Bamboo flowsheet Mya MCMILLAN Work Phone: [facility] Start: 09-06-2024 End: 09-06-2024 Emergency department patient visit Flash Franco [facility] Start: 09-05-2024 ambulatory [facility] Facility :[facility] Start: 09-05-2024 End: 09-05-2024 ambulatory [facility] Facility:[facility] Start: 09-05-2024 Emergency department patient visit DO Gabriel Curtis Facility:[facility] Start: 09-05-2024 End: 09-05-2024 Observation [facility] Start: 08-25-2024 End: 08-25-2024 Clinisync Result Encounter Brain Seamus DO Work Phone: [facility] Unsolicited Start: 08-25-2024 End: 08-25-2024 Clinisync Result Encounter Brain Seamus DO Work Phone: [facility] Unsolicited Start: 08-25-2024 End: 08-25-2024 ambulatory Darwin Jones CONCESSIONIST Work Phone: [facility] Work Phone: Start: 08-25-2024 End: 08-25-2024 Patient encounter procedure Darwin Jones CONCESSIONIST Work Phone[facility] Work Phone: Start: 08-23-2024 End: 08-23-2024 Bamboo flowsheet Brain Seamus DO Work Phone: [facility] Start: 08-23-2024 End: 08-23-2024 Bamboo flowsheet Brain Seamus DO Work Phone: [facility] Start: 08-23-2024 End: 08-23-2024 flow sheet Brain Seamus DO Work Phone: [facility] Comment on above: 29 weeks gestation o f ; Third trimester ; Gastroesophageal reflux in Start: 08-23-2024 End: 08-23-2024 ambulatory BRAIN SEAMUS Not Available Start: 08-02-2024 End: 08-02-2024 ambulatory DARCY SALAZARHID [facility] Start: 07-31-2024 End: 07-31-2024 Patient encounter procedure Darwin Jones CONCESSIONIST Work Phone: [facility] [place] Work Phone: Start: 07-31-2024 End: 07-31-2024 Orders Only Hayden Reilly MD Work Phone: [facility] Comment on above: History of pericardi tis (Primary Dx); Mild concentric left ventricular hypertrophy (LVH); 25 weeks gestation of Start: 07-27-2024 End: 07-27-2024 ambulatory NO PCP NO PCP [facility] Start: 07-11-2024 End: 07-11-2024 flow sheet Brain Seamus DO Work Phone: [facility] Comment on above: 22 weeks gestation o f ; Second trimester ; Nausea and vomiting during ; Diabetes mellitus screening Start: 06-28-2024 End: 06-28-2024 Patient encounter procedure Darwin Jones CONCESSIONIST Work Phone: [facility] [place] Work Phone: Start: 06-28-2024 End: 06-28-2024 ambulatory Darwin Jones CONCESSIONIST Work Phone: [facility] Work Phone: Start: 2024 End: 2024 Office consultation new/estab patient 60 min Hayden Reilly MD Work Phone: [facility] [place] Comment on above: 20 weeks gestation o f (Primary Dx); Tiffani's disease; 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; Hx of preeclampsia, prior , currently ; Elevated BP without diagnosis of hypertension; History of pericarditis; with history of section, antepartum; History of macrosomia in infant in prior , currently ; Obesity affecting , antepartum, unspecified obesity type; Depression affecting Start: 2024 End: 2024 ambulatory BRAIN R [facility] Start: 06-22-2024 End: 06-22-2024 Patient encounter procedure Darwin Jones APRN Work Phone: [facility] [place] Work Phone: Start: 06-22-2024 End: 06-22-2024 ambulatory Darwin Jones CONCESSIONIST Work Phone: [facility] Work Phone: Start: 06-21-2024 End: 06-21-2024 Chart abstracting Hayden Reilly MD Work Phone: [facility] Start: 06-12-2024 End: 06-12-2024 Bamboo flowsheet Brain Seamus DO Work Phone: [facility] Start: 06-12-2024 End: 06-12-2024 Bamboo flowsheet Brain Seamus DO Work Phone: [facility] Start: 06-12-2024 End: 06-12-2024 flow sheet Brain Seamus DO Work Phone: [facility] Comment on above: Second trimester pre gnancy; 18 weeks gestation of ; Screening, , for anatomic survey Start: 06-12-2024 End: 06-12-2024 ambulatory BRAIN SEAMUS Not Available Start: 05-24-2024 End: 05-24-2024 Patient encounter procedure SHIRLEY Jones Work Phone: [facility]-Lab [facility] [place] Work Phone: Start: 05-24-2024 End: 05-24-2024 ambulatory SHIRLEY Jones Work Phone: [facility] Work Phone: Start: 05-11-2024 End: 05-11-2024 ambulatory SHIRLEY Jones Work Phone: [facility] Work Phone: Start: 05-11-2024 End: 05-11-2024 Encounter for general adult medical examination without abnormal findings SHIRLEY Jones Work Phone: [facility] Start: 05-11-2024 End: 05-11-2024 Patient encounter procedure SHIRLEY Jones Work Phone: [facility] Family [facility] [employer] Work Phone: Start: 05-10-2024 End: 05-10-2024 Bamboo flowsheet Brain Seamus DO Work Phone: [facility] Start: 05-10-2024 End: 05-10-2024 Bamboo flowsheet Brain Seamus DO Work Phone: [facility] Start: 05-10-2024 End: 05-10-2024 flow sheet Brain Seamus DO Work Phone: [facility] Comment on above: Second trimester pre gnancy Start: 05-10-2024 End: 05-10-2024 ambulatory BRAIN SEAMUS Not Available Start: 04-20-2024 End: 04-20-2024 Bamboo flowsheet Brain Seamus DO Work Phone: [facility] Start: 04-20-2024 End: 04-25-2024 Clinisync Result Encounter Brain Seamus DO Work Phone: [facility] External Department Unsolicited Start: 04-20-2024 End: 04-22-2024 External Result Encounter Brain Seamus DO Work Phone: [facility] External Department Unsolicited Start: 04-20-2024 End: 04-25-2024 External Result Encounter Brain Seamus DO Work Phone: [facility] External Department Unsolicited Start: 04-20-2024 End: 04-20-2024 Patient encounter procedure Brain Seamus DO Work Phone: [facility] Start: 04-20-2024 End: 04-20-2024 Periodic preventive med est patient 18-39 yrs Brain Seamus DO Work Phone: [facility] Comment on above: First trimester preg gwen; Well woman exam with routine gynecological exam; Screen for STD (sexually transmitted disease); Vaginal discharge Start: 04-20-2024 End: 04-20-2024 ambulatory BRAIN SEAMUS Not Available Start: 04-13-2024 End: 04-13-2024 Clinisync Result Encounter Brain Seamus DO Work Phone: [facility] Unsolicited Start: 04-13-2024 End: 04-13-2024 Clinisync Result Encounter Brain Seamus DO Work Phone: [facility] External Department Unsolicited Start: 04-07-2024 End: 04-07-2024 Office outpatient visit 5 minutes [facility] Seamus Nurse [facility] Comment on above: GA: 9w2d Start: 04-07-2024 End: 04-07-2024 ambulatory MYA FINCH Not Available Start: 04-06-2024 End: 04-06-2024 Departed Referred CONCESSIONISTAlayna Jones Work Phone: [facility] Start: 04-06-2024 End: 04-06-2024 ambulatory CONCESSIONISTAlayna Jones Work Phone: [facility] Work Phone: Start: 03-21-2024 End: 03-21-2024 ambulatory BRAIN SEAMUS Not Available Start: 03-18-2024 End: 03-18-2024 Emergency department patient visit [place] [facility] Start: 02-24-2024 End: 02-24-2024 Patient encounter procedure CONCESSIONISTAlayna Joneserwood Work Phone: [facility] [place] Work Phone: Start: 02-24-2024 End: 02-24-2024 ambulatory CONCESSIONIST Darwin Anaya Easterwood Work Phone: [facility] Work Phone: Start: 01-25-2024 End: 01-25-2024 ambulatory CONCESSIONIST Darwin Anaya Easterwood Work Phone: [facility] Work Phone: Start: 01-25-2024 End: 01-25-2024 Patient encounter procedure CONCESSIONIST Darwin Joneserwood Work Phone: [facility] Work Phone: Start: 01-24-2024 End: 01-24-2024 Patient encounter procedure CONCESSIONIST Darwin Joneserwood Work Phone: [facility] [place] Work Phone: Start: 01-24-2024 End: 01-24-2024 ambulatory CONCESSIONIST Darwin Anaya Easterwood Work Phone: [facility] Work Phone: Start: 12-27-2023 End: 12-27-2023 Patient encounter procedure CONCESSIONIST Darwin Joneserwood Work Phone: [facility] [place] Work Phone: Start: 12-27-2023 End: 12-27-2023 ambulatory CONCESSIONIST Darwin Jaclyn Easterwood Work Phone: [facility] Work Phone: Start: 12-24-2023 End: 12-24-2023 ambulatory CONCESSIONISTAlayna Jones Work Phone: [facility] Work Phone: Start: 12-24-2023 End: 12-24-2023 Patient encounter procedure CONCESSIONISTAlayna Jones Work Phone: [facility] Work Phone: Start: 11-30-2023 End: 11-30-2023 Patient encounter procedure CONCESSIONISTAlayna Jones Work Phone: [facility] [place] Work Phone: Start: 11-30-2023 End: 11-30-2023 ambulatory CONCESSIONISTAlayna Jonesermacy Work Phone: [facility] Work Phone: Start: 11-25-2023 End: 11-25-2023 ambulatory CONCESSIONISTAlayna Joneserwinchester Work Phone: [facility] Work Phone: Start: 11-25-2023 End: 11-25-2023 Patient encounter procedure SHIRLEY Jones Work Phone: [facility] Work Phone: Start: 11-18-2023 End: 11-19-2023 ambulatory RUBY WHITTINGTON Facility:[facility] Start: 11-18-2023 End: 11-18-2023 Patient encounter procedure Ruby Whittington MD Work Phone: Endocrinology Comment on above: 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 Work Phone: Start: 10-20-2023 End: 10-20-2023 Patient encounter procedure CONCESSIONIST Darwin Joneserwood Work Phone: [facility] Work Phone: Start: 10-01-2023 End: 10-01-2023 Patient encounter procedure CONCESSIONIST Darwin Joneserwood Work Phone: [facility] C[facility]-Lab [facility] Work Phone: Start: 10-01-2023 End: 10-01-2023 ambulatory CONCESSIONIST Darwin Jonesermacy Work Phone: [facility] Work Phone: Start: 09-29-2023 End: 09-29-2023 ambulatory Tyrone Rock Facility:[facility] Start: 09-29-2023 End: 09-29-2023 Patient encounter procedure Tyrone Rock [facility] Start: 09-21-2023 End: 09-21-2023 ambulatory Darwin Roberterwood Other [employer] Other Start: 09-21-2023 Office outpatient vi sit 15 minutes Darwin Janewood [facility] Start: 08-30-2023 Patient encounter procedure CONCESSIONIST Darwin Joneserwood Work Phone: [facility]- Start: 08-25-2023 End: 08-25-2023 ambulatory Darwin Roberterwood Other [employer] Other Start: 08-25-2023 Follow-up encounter Darwin Roberttodd [facility] Start: 08-25-2023 End: 08-25-2023 Patient encounter procedure CONCESSIONIST Darwin Yasir Work Phone: [facility] Work Phone: Start: 07-23-2023 End: 07-23-2023 Patient encounter procedure CONCESSIONIST Darwin Jones Work Phone: [facility] Work Phone: Start: 07-16-2023 Telephone encounter Ruby sneed MD Work Phone: Endocrinology Comment on above: Appointment Start: 06-23-2023 End: 06-23-2023 ambulatory Darwin Janemacy Other [employer] Other Start: 06-23-2023 Office outpatient vi sit 15 minutes Darwin Jones [facility] Start: 06-08-2023 End: 06-08-2023 ambulatory FRANCY GAN Facility:[facility] Start: 06-08-2023 End: 06-08-2023 Patient encounter procedure Francy Gan PA-C Work Phone: Otolaryngology Comment on above: Dysphagia, unspecifi ed type (Primary Dx); LPRD (laryngopharyngeal reflux disease) Start: 05-26-2023 End: 05-26-2023 ambulatory Darwin Yasir Other [employer] Other Start: 05-26-2023 Office outpatient vi sit 25 minutes Darwin Roberttodd [facility] Start: 05-06-2023 End: 05-06-2023 ambulatory CONCESSIONIST Darwin Anaya Yasir Work Phone: [facility] Work Phone: Start: 05-06-2023 End: 05-06-2023 Patient encounter procedure CONCESSIONIST Darwin Jonestodd Work Phone: [facility] C[facility]-Ultrasound [place] Work Phone: Start: 04-28-2023 End: 04-28-2023 ambulatory Darwin Jones Other [employer] Other Start: 04-28-2023 Office outpatient vi sit 40 [facility] Start: 04-16-2023 End: 04-16-2023 ambulatory Darwin Larawinchester Other [employer] Other Start: 04-16-2023 Encounter for genera l adult medical examination without abnormal [facility] Start: 04-16-2023 Periodic preventive med est patient 18-39 yrs [facility] Start: 04-08-2023 End: 04-08-2023 ambulatory CONCESSIONIST Darwin Jones Work Phone: [facility] Work Phone: Start: 04-08-2023 End: 04-08-2023 Departed Referred CONCESSIONIST Darwin Jones Work Phone: [facility]-Employee Benefit Screening Start: 03-22-2023 End: 03-22-2023 Emergency department patient visit [facility] Start: 03-22-2023 End: 03-22-2023 Emergency department patient visit CONCESSIONIST Darwin Jones Work Phone: [facility] Ctr-Emergency Room Work Phone: Start: 02-28-2023 End: 02-28-2023 Departed Referred CONCESSIONIST Darwin Jones Work Phone: [facility]-Employee Benefit Screening Start: 02-28-2023 End: 02-28-2023 ambulatory CONCESSIONIST Darwin Jones Work Phone: [facility] Work Phone: Start: 02-28-2023 End: 02-28-2023 Patient encounter procedure CONCESSIONIST Darwin Jones Work Phone: [facility] C[facility] [address] Work Phone: Start: 12-10-2022 End: 12-10-2022 ambulatory CONCESSIONIST Darwin Jones Work Phone: [facility] Work Phone: Start: 12-10-2022 End: 12-10-2022 Patient encounter procedure CONCESSIONIST Darwin Jones Work Phone: [facility]-Lab [place] Work Phone: Start: 12-09-2022 End: 12-09-[address] NONE LISTED REQUEST Facility: Start: 12-08-2022 End: 12-08-2022 ambulatory Ofelia Mir Other [employer] Other Start: 12-08-2022 Encounter by ruben Gilbert cassidy [facility] Start: 10-22-2022 End: 10-22-2022 ambulatory Lilly Ti Other [employer] Other Start: 10-22-2022 Telephone encounter Lilly [facility] Start: 10-16-2022 End: 10-16-2022 ambulatory CONCESSIONIST Darwin Jones Work Phone: [facility] Work Phone: Start: 10-16-2022 End: 10-16-2022 Patient encounter procedure CONCESSIONIST Darwin Jones Work Phone: [facility] C[facility]-Lab [facility] [place] Work Phone: Start: 10-15-2022 End: 10-15-2022 ambulatory Ofelia Mir Other [employer] Other Start: 10-15-2022 Telephone encounter Ofelia [facility] Start: 10-05-2022 Registered Recurring SHIRLEY Jones Work Phone: [facility]-Weight Management Work Phone: Start: 10-05-2022 [facility] Weight Management f/u [facility] Start: 10-05-2022 End: 10-05-2022 ambulatory Ofelia Hester Other [employer] Other Start: 09-28-2022 ambulatory Ruby Whittington MD Work Phone: Endocrinology Comment on above: Synthroid Start: 09-02-2022 ([facility] Weight Management f/u [facility] Start: 09-02-2022 End: 09-02-2022 ambulatory Ofeliaher Hester Other [employer] Other Start: 08-25-2022 ([facility] WMNI) PHUONG joy Provider Lilly Neymarsonia [facility] Start: 08-25-2022 End: 08-25-2022 ambulatory Lilly Ti Other [employer] Other Start: 07-31-2022 ([facility]) Weight Management f/u [facility] Start: 07-31-2022 End: 07-31-2022 ambulatory Ofelia ler Other [employer] Other Start: 07-20-2022 End: 07-20-2022 ambulatory Lilly Luke Other [employer] Other Start: 07-20-2022 Telephone encounter Lilly [facility] Start: 07-14-2022 End: 07-14-2022 Patient encounter procedure Ruby Whittington MD Work Phone: Endocrinology Comment on above: 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); Class 2 obesity Start: 07-08-2022 End: 07-08-2022 ambulatory Ofelia Hester Other [employer] Other Start: 07-08-2022 Telephone encounter Ofelia [facility] Start: 06-17-2022 ([facility]/U) Weight Management f/u [facility] Start: 06-17-2022 End: 06-17-2022 ambulatory Ofelia Hester Other [employer] Other Start: 06-04-2022 End: 06-04-2022 ambulatory Sima Ross Other [employer] Other Start: 06-04-2022 Office outpatient vi sit 15 minutes Sima Ross [facility] Start: 05-27-2022 End: 05-27-2022 ambulatory Lilly Luke Other [employer] Other Start: 05-27-2022 IBT FOR OBESITY GROU P 2-10 30M Lilly Luke [facility] Start: 05-25-2022 End: 05-25-2022 ambulatory Darwin Jones Other [employer] Other Start: 05-25-2022 Telephone encounter Geoffrey murphy MD Work Phone: Endocrinology Comment on above: Appointment (LVM for patient that appt on 05/[address] George has been rescheduled to 07/08 at [facility] with Dr. Robertson. sending mail reminder as well. ) Start: 05-19-2022 End: 05-19-2022 ambulatory Ofelia Hester Other [employer] Other Start: 05-19-2022 Telephone encounter Ofelia [facility] Start: 05-18-2022 End: 05-18-2022 ambulatory Ofelia Hester Other [employer] Other Start: 05-18-2022 Nutrition therapy Ofelia Hester [facility] Start: 04-21-2022 End: 04-21-2022 ambulatory Darwin Easterwood Other [employer] Other Start: 04-21-2022 Telephone encounter Darwin Easterwood [facility] Start: 04-17-2022 End: 04-17-2022 ambulatory Darwin Easterwood Other [employer] Other Start: 04-17-2022 Office outpatient vi sit 25 minutes Darwin Easterwood [facility] Start: 04-15-2022 End: 04-15-2022 ambulatory Darwin Easterwood Other [employer] Other Start: 04-15-2022 Telephone encounter Darwin Easterwood [facility] Start: 04-14-2022 End: 04-14-2022 Patient encounter procedure PHYSICIAN NO [facility] [place] Start: 04-10-2022 End: 04-10-2022 ambulatory Lilly Fitt Other [employer] Other Start: 04-10-2022 Telephone encounter Lilly F[facility] Start: 04-06-2022 End: 04-06-2022 Patient encounter procedure PHYSICIAN NO [facility] [place] Start: 02-24-2022 End: 02-24-2022 ambulatory Darwin Easterwood Other [employer] Other Start: 02-24-2022 [facility] Start: 02-18-2022 End: 02-18-2022 Emergency department patient visit Fazal [facility] Start: 02-18-2022 End: 02-18-2022 [facility] Other Start: 02-18-2022 Office outpatient vi sit [facility] Start: 02-18-2022 [facility] Start: 02-13-2022 End: 02-13-2022 Patient encounter procedure PHYSICIAN [facility]-Ultrasound [place] Start: 02-11-2022 End: 02-11-2022 [facility] [employer] Other Start: 02-11-2022 Office outpatient ne w 45 minutes Darwin [facility] Start: 02-10-2022 End: 02-10-2022 Departed Referred PHYSICIAN [facility]-Employee Benefit Screening Start: 09-04-2021 Chart Update Unknown Unknown [facility] [address] DO Work Phone: Start: 09-03-2021 Office outpatient ne w 45 minutes Unknown [facility] Work Phone: Procedures Date Procedure Procedure Detail Performing Clinician Start: 09-11-2024 US OB GROWTH Mya MCMILLAN Work Phone: Start: 09-07-2024 Urnls dip stick/tabl et rgnt non-auto w/o micrscp Mya MCMILLAN Work Phone: Start: 08-25-2024 ALL CBC WITH AUTO DIFF Brain Seamus DO Work Phone: Start: 08-23-2024 Urnls dip stick/tabl et rgnt non-auto w/o micrscp Brain Seamus DO Work Phone: Start: 07-11-2024 Urnls dip stick/tabl et rgnt non-auto w/o micrscp Brain Seamus DO Work Phone: Start: 06-22-2024 Diagnostic ultrasoun d of gravid uterus Darwin Jones CONCESSIONIST Work Phone: Start: 06-21-2024 H/O: section History of C-s ection Hayden Reilly MD Work Phone: Start: 06-12-2024 Urnls dip stick/tabl et rgnt non-auto w/o micrscp Brain Seamus DO Work Phone: Start: 05-10-2024 Urnls dip stick/tabl et rgnt non-auto w/o micrscp Brain Seamus DO Work Phone: Start: 04-20-2024 URETHRITIS/DISCHARGE PLUS VAGINITIS (HTRX) Brain Chiango DO Work Phone: Start: 04-20-2024 Urnls dip stick/tabl et rgnt non-auto w/o micrscp Brain Seamus DO Work Phone: Start: 04-20-2024 IGP,APTIMA HPV,AGE GDLN Brain Way DO Work Phone: Start: 04-20-2024 Microscopic observation [Identifier] in Cervix by Cyto stain Hayden Reilly MD Work Phone: Start: 04-13-2024 Blood count complete automated Not In System Ref Prov Start: 04-13-2024 Syphilis test non-treponemal antibody qual Not In System Ref Prov Start: 04-13-2024 TBH BOX TEST SENT OUT C staci Way DO Work Phone: Start: 04-08-2024 Drug scrn 1+ class nonchromo Not In System Ref Prov Start: 04-07-2024 Urnls dip stick/tabl et rgnt non-auto w/o micrscp Brainjnoathan Chiango DO Work Phone: Start: 02-13-2022 US scan of thyroid PHYS ICIAN NO FAMILY section Unknown Unk nown section Fazal Bush er NEGATED: Highlighted row has not occurred! Total colonoscopy Unknown Unknown Plan of Treatment Date Care Activity Detail Author Start: 04-20-2027 Screening for malignant neoplasm of cervix Pap Smear [facility] Start: 03-23-2026 DTaP,Tdap and Td Vaccines (7 - Td or Tdap) DTaP,Tdap and Td Vaccines (7 - Td or Tdap) [facility] Start: 03-23-2026 Urine microalbumin profile [facility] Start: 2025 Tobacco Screening Tobacco Screening [facility] Start: 09-19-2024 End: 09-19-2024 Patient encounter procedure 09/19/2024 2:00 PM EST Routine [facility] [address] [place] [id number] [address], DO [address] [place] [address] [facility] Start: 09-07-2024 End: 09-07-2024 Patient encounter procedure [facility] Comment on above: Arrived Start: 09-07-2024 End: 09-07-2025 US for US OB follow up transabdominal approach Imaging Routine size inconsistent with dates Expected: 09/07/2024, Expires: 09/07/2025 [facility] Work Phone: Comment on above: Expected: 09/07/2024, Expires: Start: 08-31-2024 End: 07-31-2025 Echo complete W/O contrast Echo complete W/O contrast Echocardiography Routine History of pericarditis Mild concentric left ventricular hypertrophy (LVH) 25 weeks gestation of Expected: 08/31/2024 (Approximate), Expires: 07/31/2025 [facility] Work Phone: Comment on above: Expected: 08/31/2024 (Approximate), Expi res: 07/31/2025 Start: 08-25-2024 [facility] Start: 08-23-2024 End: 08-23-2024 Patient encounter procedure 08/23/2024 11:00 AM EST Routine [facility] [address] [place] [address] DO [address] [place] [address] Arrived [facility] Comment on above: Arrived Start: 08-02-2024 End: 08-02-2024 Telemedicine consultation with patient 08/02/2024 9:00 AM EST Telemedicine [facility] [place] [address] [place] [address] Darcy Enriquez MD [address] [facility] [facility] [facility] [address] [place] [address] [facility] [place] Start: 07-27-2024 End: 07-27-2024 Patient encounter procedure 07/27/2024 11:00 AM EST Appointment [facility] [place] [address] [place] [address] [facility] [place] Start: 07-21-2024 End: 07-21-2024 Patient encounter procedure 07/21/2024 10:[address] [facility] [address] [place] [address] [facility] Start: 07-11-2024 End: 07-11-2025 CBC panel - Blood by Automated count CBC Lab Routine 22 weeks gestation of Second trimester Expected: 07/11/2024 (Approximate), Expires: 07/11/2025 [facility] Work Phone: Comment on above: Expected: 07/11/2024 (Approximate), Expi res: 07/11/2025 Start: 07-11-2024 End: 07-11-2025 Measurement of glucose 1 hour after glucose challenge for glucose tolerance test Glucose tolerance, 1 hour Lab Routine 22 weeks gestation of Second trimester Diabetes mellitus screening Expected: 07/11/2024 (Approximate), Expires: 07/11/2025 [facility] Comment on above: Expected: 07/11/2024 (Approximate), Expi res: 07/11/2025 Start: 07-11-2024 End: 07-11-2024 Patient encounter procedure 07/11/2024 10:10 AM EST Routine [facility] [address] [place] [id number] Brain [address] DO [address] [place] [address] [facility] Start: 06-28-2024 [facility] Start: 2024 End: 2025 Echo complete W/O contrast Echo complete W/O contrast Echocardiography Routine 20 weeks gestation of History of pericarditis Expected: 2024, Expires: 2025 [facility] Work Phone: Comment on above: Expected: 2024, Expires: Start: 2024 End: 2024 Patient encounter procedure [facility] [place] Start: 06-12-2024 End: 10-13-2024 Alpha fetoprotein, maternal Alpha fetoprotein, maternal Lab Routine Second trimester 18 weeks gestation of Expected: 06/12/2024 (Approximate), Expires: 10/13/2024 [facility] Comment on above: Expected: 06/12/2024 (Approximate), Expi res: 10/13/2024 Start: 06-12-2024 End: 06-12-2025 US for US OB ANATOMY SINGLE W US OB CERVICAL LENGTH Imaging Routine Screening, , for anatomic survey Expected: 06/12/2024 (Approximate), Expires: 06/12/2025 [facility] Work Phone: Comment on above: Expected: 06/12/2024 (Approximate), Expi res: 06/12/2025 Start: 06-12-2024 End: 06-12-2024 Patient encounter procedure 06/12/2024 10:00 AM EDT Routine [facility] [address] [place] [phone] [address], DO [address] [place] [address] Arrived [facility] Comment on above: Arrived Start: 06-07-2024 End: 06-07-2024 Patient encounter procedure 06/07/2024 10:50 AM EDT Routine [facility] [address] [place] [id number] [address], DO [address] [place] [address] [facility] Start: 05-10-2024 End: 05-10-2024 Patient encounter procedure [facility] Comment on above: Arrived Start: 04-20-2024 End: 04-20-2024 Patient encounter procedure [facility] Comment on above: Arrived Start: 04-16-2024 COVID-19 Vaccine ( season) COVID-19 Vaccine ( season) [facility] Start: 04-16-2024 Influenza vaccination [facility] Start: 04-07-2024 End: 04-07-2025 ABO/Rh ABO/Rh Lab Routine Missed menses Expected: 04/07/2024 (Approximate), Expires: 04/07/2025 [facility] Comment on above: Expected: 04/07/2024 (Approximate), Expi res: 04/07/2025 Start: 04-07-2024 End: 04-07-2025 Blood type and Indirect antibody screen panel - Blood Type and screen Lab Routine Missed menses Expected: 04/07/2024 (Approximate), Expires: 04/07/2025 [facility] Work Phone: Comment on above: Expected: 04/07/2024 (Approximate), Expi res: 04/07/2025 Start: 08-16-2023 Behavioral Health Screening Behavioral Health Screening [facility] Start: 05-06-2023 US scan of thyroid US thyroid [facility] Start: 04-16-2023 Covid-19 Vaccine ( season) Covid-19 Vaccine ( season) [facility] Start: 04-16-2023 Influenza vaccination Influenza Vaccine (#1) [facility] Start: 04-08-2023 [facility] Start: 08-16-2022 DEPRESSION ASSESSMENT DEPRESSION ASSESSMENT [facility] Start: 04-16-2022 Influenza vaccination INFLUENZA (#1) [facility] Start: 08-16-2021 DEPRESSION ASSESSMENT DEPRESSION ASSESSMENT [facility] Start: 01-10-2021 COVID-19 VACCINE (3 - Booster) COVID-19 VACCINE (3 - Booster) [facility] Start: 2017 PAP TESTING PAP TESTING [facility] Start: 2017 Screening for malignant neoplasm of cervix [facility] Start: 2015 DTaP,Tdap and Td Vaccines (1 - Tdap) DTaP,Tdap and Td Vaccines (1 - Tdap) [facility] Start: 2015 Urine microalbumin profile DTAP,TDAP,TD (1 - Tdap) [facility] Start: 2014 Adult BMI Screening Adult BMI Screening [facility] Start: 2014 ANNUAL PCP TEAM CHRONIC DISEASE VISIT ANNUAL PCP TEAM CHRONIC DISEASE VISIT [facility] Start: 2014 HEPATITIS C SCREENING HEPATITIS C SCREENING [facility] Start: 2014 Hepatitis C screening Hepatitis C Screening [facility] Start: 2014 HIV SCREENING HIV SCREENING [facility] Start: 2014 HIV screening HIV Screening [facility] Start: 2010 PEDS TO ADULT TRANSITION ANNUAL ASSESSMENT PEDS TO ADULT TRANSITION ANNUAL ASSESSMENT [facility] Start: 2008 Depression Screening Depression Screening [facility] Start: 2008 PEDS TO ADULT TRANSITION INITIAL DISCUSSION PEDS TO ADULT TRANSITION INITIAL DISCUSSION [facility] Start: 2008 Tobacco Screening Tobacco Screening [facility] Start: 2007 HPV VACCINE (1 - 2-dose series) HPV VACCINE (1 - 2-dose series) [facility] Start: 2005 HPV Vaccine (1 - 2-dose series) HPV Vaccine (1 - 2-dose series) [facility] Start: 1996 COVID-19 VACCINE (#1) COVID-19 VACCINE (#1) [facility] Start: 1996 HEPATITIS B (1 of 3 - 3-dose series) HEPATITIS B (1 of 3 - 3-dose series) [facility] Bacteria identified in Urine by Culture Urine culture Microbiology Routine Missed menses Ordered: 04/07/2024 [facility] Comment on above: Ordered: 04/07/2024 CBC W Auto Differential panel - Blood CBC and differential Lab Routine Missed menses Ordered: 04/07/2024 [facility] Comment on above: Ordered: 04/07/2024 CHLAMYDIA TRACHOMATI S (GENITO/STI) CHLAMYDIA TRACHOMATIS (GENITO/STI) Lab Routine First trimester Screen for STD (sexually transmitted disease) Vaginal discharge Ordered: 04/20/2024 [facility] Comment on above: Ordered: 04/20/2024 Cytology Cervical or vaginal smear or scraping study Pap Smear Pathology and Cytology Routine Well woman exam with routine gynecological exam Ordered: 04/20/2024 [facility] Work Phone: Comment on above: Ordered: 04/20/2024 Hemoglobin A1c/Hemoglobin.total in Blood Hemoglobin A1c Lab Routine Missed menses Ordered: 04/07/2024 [facility] Comment on above: Ordered: 04/07/2024 Hepatitis B virus surface Ag [Presence] in Serum or Plasma by Immunoassay Hepatitis B surface antigen Lab Routine Missed menses Ordered: 04/07/2024 [facility] Comment on above: Ordered: 04/07/2024 Hepatitis C virus Ab [Presence] in Serum or Plasma by Immunoassay Hepatitis C antibody Lab Routine Missed menses Ordered: 04/07/2024 [facility] Comment on above: Ordered: 04/07/2024 HIV-1/HIV-2 antigen/antibody combination immunoassay HIV-1 and HIV-2 antibodies Lab Routine Missed menses Ordered: 04/07/2024 [facility] Comment on above: Ordered: 04/07/2024 Neisseria gonorrhoea e DNA [Presence] in Unspecified specimen by LAUREN with probe detection Neisseria gonorrhea DNA probe, direct Lab Routine First trimester Screen for STD (sexually transmitted disease) Vaginal discharge Ordered: 04/20/2024 [facility] Comment on above: Ordered: 04/20/2024 Patient referral [facility] Work Phone: Progesterone [Mass/volume] in Serum or Plasma [facility] Progesterone [Mass/volume] in Serum or Plasma [facility] Progesterone [Mass/volume] in Serum or Plasma [facility] Progesterone [Mass/volume] in Serum or Plasma [facility] Progesterone [Mass/volume] in Serum or Plasma [facility] Reagin Ab [Presence] in Serum by RPR RPR Lab Routine Missed menses Ordered: 04/07/2024 [facility] Comment on above: Ordered: 04/07/2024 Rubella antibody, IgG Rubella an tibody, IgG Lab Routine Missed menses Ordered: 04/07/2024 [facility] Comment on above: Ordered: 04/07/2024 SURESWAB(R) ADVANCED VAGINITIS PLUS, TMA SURESWAB(R) ADVANCED VAGINITIS PLUS, TMA Pathology and Cytology Routine First trimester Screen for STD (sexually transmitted disease) Vaginal discharge Ordered: 04/20/2024 [facility] Comment on above: Ordered: 04/20/2024 Thyrotropin [Units/volume] in Serum or Plasma TSH Lab Routine Missed menses Ordered: 04/07/2024 [facility] Comment on above: Ordered: 04/07/2024 [facility] End: 07-07-2024 XR MODIFIED BARIUM SWALLOW W SPEECH THERAPY XR MODIFIED BARIUM SWALLOW W SPEECH THERAPY Radiology Routine Dysphagia, unspecified type 1 Occurrences starting 06/08/2023 until 07/07/2024 [facility] Work Phone: Comment on above: 1 Occurrences starting 06/08/2023 until 07/07/2024 [facility] Work Phone: [facility] Immunizations Immunization Date Immunization Notes Care Provider Vaishali yo 05-21-2023 influenza virus vaccine, unspecified formulation [facility] 05-21-2023 influenza, injectabl e, 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, 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 free CONCESSIONIST Darwin Jones Work Phone: [facility] 05-21-2023 influenza, injectabl e, 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, contains 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 Darwin Easterwood Other [facility] [employer] Other 06-15-2022 influenza, injectabl e, 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, 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 free CONCESSIONIST Darwin Easterwood Work Phone: [facility] 06-15-2022 influenza, injectabl e, 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, contains 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 Darwin Easterwood Other [facility] Work Phone: 06-15-2022 influenza virus vaccine, unspecified formulation Francy Gan PA-C Work Phone: [facility] 06-15-2021 influenza nasal, unspecified formulation Ruby Whittington MD Work Phone: [facility] Work Phone: 06-15-2021 influenza virus vaccine, unspecified formulation [facility] 06-15-2021 influenza, injectabl e, 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, 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 free CONCESSIONIST Darwin Easterwood Work Phone: [facility] 06-15-2021 influenza, injectabl e, 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, contains 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 Darwin Easterwood Other [facility] Work Phone: 05-15-2021 influenza nasal, unspecified formulation Ruby Whittington MD Work Phone: [facility] Work Phone: 05-15-2021 influenza virus vaccine, unspecified formulation [facility] 05-15-2021 influenza, high dose seasonal, 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-free Unknown Unknown [facility] Work Phone: 11-15-2020 Pfizer-BioNTech COVID-19 Vacc 30 MCG/0.3ML Intramuscular Suspension Unknown Unknown [facility] 11-12-2020 COVID-19 vaccine, unknown product (NON-US) Ruby Whittington MD Work Phone: [facility] Work Phone: 10-24-2020 Pfizer-BioNTech COVID-19 Vacc 30 MCG/0.3ML Intramuscular Suspension Unknown Unknown [facility] 03-23-2016 tetanus toxoid, reduced diphtheria toxoid, and acellular pertussis vaccine, adsorbed Unknown Unknown [facility] Work Phone: 03-23-2016 varicella virus vaccine Unknown Unknown [facility] Work Phone: 03-01-2002 diphtheria, tetanus toxoids and acellular pertussis vaccine, unspecified formulation Unknown Unknown [facility] Work Phone: 03-01-2002 DTaP, unspecified formulation [facility] 03-01-2002 measles, mumps and rubella virus vaccine Unknown Unknown [facility] Work Phone: 03-01-2002 poliovirus vaccine, inactivated Unknown Unknown [facility] Work Phone: 03-01-2002 poliovirus vaccine, unspecified formulation [facility] 04-20-2001 hepatitis B vaccine, pediatric or pediatric/adolescent dosage Unknown Unknown [facility] Work Phone: 01-03-1998 diphtheria, tetanus toxoids and acellular pertussis vaccine, unspecified formulation Unknown Unknown [facility] Work Phone: 01-03-1998 DTaP, unspecified formulation [facility] 09-18-1997 measles, mumps and rubella virus vaccine Unknown Unknown [facility] Work Phone: 09-18-1997 varicella virus vaccine Unknown Unknown [facility] Work Phone: 03-30-1997 hepatitis B vaccine, pediatric or pediatric/adolescent dosage Unknown Unknown [facility] Work Phone: 1996 diphtheria, tetanus toxoids and acellular pertussis vaccine, unspecified formulation Unknown Unknown [facility] Work Phone: 1996 DTaP, unspecified formulation Tyrone Pranav [facility] 1996 trivalent poliovirus vaccine, live, oral Unknown Unknown [facility] Work Phone: 1996 diphtheria, tetanus toxoids and acellular pertussis vaccine, unspecified formulation Unknown Unknown [facility] Work Phone: 1996 DTaP, unspecified formulation Tyrone Questli [facility] 1996 haemophilus influenz ae type b vaccine, conjugate unspecified formulation Unknown Unknown [facility] Work Phone: 1996 Hib, unspecified formulation Tyrone Polancopsey [facility] 1996 trivalent poliovirus vaccine, live, oral Unknown Unknown [facility] Work Phone: 1996 diphtheria, tetanus toxoids and acellular pertussis vaccine, unspecified formulation Unknown Unknown [facility] Work Phone: 1996 DTaP, unspecified formulation Tyrone Polancopsey [facility] 1996 diphtheria, tetanus toxoids and acellular pertussis vaccine, unspecified formulation Unknown Unknown [facility] Work Phone: 1996 DTaP, unspecified formulation Tyrone Polancopsey [facility] 1996 haemophilus influenz ae type b vaccine, conjugate unspecified formulation Unknown Unknown [facility] Work Phone: 1996 Hib, unspecified formulation Tyrone Rock [facility] 1996 measles, mumps and rubella virus vaccine Unknown Unknown [facility] Work Phone: 1996 varicella virus vaccine Unknown Unknown [facility] Work Phone: 1996 diphtheria, tetanus toxoids and acellular pertussis vaccine, unspecified formulation Unknown Unknown [facility] Work Phone: 1996 DTaP, unspecified formulation Tyrone Rock [facility] 1996 haemophilus influenz ae type b vaccine, conjugate unspecified formulation Unknown Unknown [facility] Work Phone: 1996 hepatitis B vaccine, pediatric or pediatric/adolescent dosage Unknown Unknown [facility] Work Phone: 1996 Hib, unspecified formulation [facility] Rock [facility] 1996 trivalent poliovirus vaccine, live, oral Unknown Unknown [facility] Work Phone: 1996 hepatitis B vaccine, pediatric or pediatric/adolescent dosage Unknown Unknown [facility] Work Phone: Payers Date Payer Category Payer Self-pay [id number] 2023 Self-pay [id number] 2022 Private Health Insurance [id number] 2021 Unknown 2019 [employer] - PPO [id number] 1996 Unknown [id number] 2.16.84 0.1.112737.3.579.2.593 1996 Unknown [id number] 2.16.8 40.1.228255.3.579.2.727 1996 Unknown [id number] 2.16.8 40.1.031336.3.579.2.72 1996 Unknown [id number] 2.16.8 40.1.209298.3.579.2.727 1996 Unknown [id number] 2.16.840.1.411065.3.579.2.1286 1996 Unknown [id number] 2.16.840.1.577413.3.579.2.128 1996 Unknown [id number] 2.16.840.1.947514.3.579.2.1285 1996 Unknown [id number] 2.16.840.1.794782.3.579.2.1285 1996 Unknown [id number] 2.16.8 40.1.890703.3.579.2.72 1996 Unknown [id number] 2.16.8 40.1.359915.3.579.2.72 1996 Unknown [id number] 2.16.8 40.1.894697.3.579.2. 1996 Unknown [id number] 2.16.8 40.1.954156.3.579.2.727 1996 Unknown [id number] 2.16.8 40.1.337499.3.579.2.727 1996 Unknown [id number] 2.16.8 40.1.857554.3.579.2.727 1996 Unknown [id number] 2.16.84 0.1.892406.3.579.2.9 1996 Unknown [id number] 2.16.84 0.1.346542.3.579.2.1259 1996 Unknown [id number] 2.16.84 0.1.109054.3.579.2.1259 1996 Unknown [id number] 2.16.84 0.1.414707.3.579.2.1259 1996 Unknown [id number] 2.16.84 0.1.236327.3.579.2.1259 1996 Unknown [id number] 2.16.84 0.1.869619.3.579.2.1259 1996 Unknown [id number] 2.16.84 0.1.566855.3.579.2.1259 1996 Unknown [id number] 2.16.8 40.1.167149.3.579.2.727 1996 Unknown [id number] .16.8 40.1.869759.3.579.2.727 1959 Unknown [id number] Unknown [id number] Unknown [id number] Unknown [id number] 2.16.8 40.1.886079.3.579.2.531 Unknown [id number] .16.8 40.1.106125.3.579.2.531 Unknown [id number] .16.8 40.1.054038.3.579.2.531 Unknown [id number] .16.8 40.1.508297.3.579.2.531 Unknown [id number] .16.8 40.1.708247.3.579.2.531 Unknown [id number] 2.16.8 40.1.070023.3.579.2.531 Unknown [id number] .16.8 40.1.592627.3.579.2.531 Unknown [id number] .16.8 40.1.590088.3.579.2.531 Unknown [id number] 2.16.8 40.1.184433.3.579.2.531 Unknown [id number] 2.16.8 40.1.870453.3.579.2.531 Unknown [id number] 2.16.8 40.1.592058.3.579.2.531 Unknown [id number] 2.16.8 40.1.024521.3.579.2.531 Social History Date Type Detail Facility Start: 07-14-2022 End: 03-21-2024 No alcohol use No alcohol use [facility] DO Work Phone: Start: 12-29-2020 End: 08-04-2023 Tobacco smoking status TXIS Never smoked tobacco (finding) [facility] Start: 1995 Sex Assigned At Female [facility] Start: 07-14-2022 End: 03-21-2024 Sex Assigned At [facility] [employer] Other Tobacco smoking status Never [facility] Tobacco smoking status [facility] Tobacco smoking consumption unknown [facility] Start: 1996 Sex Assigned At Not on file [facility] Start: 04-17-2022 End: 07-14-2022 Exposure to SARS-CoV-2 (event) Not sure [facility] Start: 07-14-2022 End: 2024 Tobacco use and exposure Smokeless tobacco non-user [facility] Start: 07-14-2022 End: 09-07-2024 Alcohol intake Lifetime non-drinker (finding) [facility] Start: 07-13-2022 Gender identity Identifies as female gender (finding) [facility] Start: 02-16-2024 [facility] Start: 03-19-2015 End: 08-26-2024 Sex Female (finding) [employer] [facility] Comment on above: Denies Tobacco smoking status No Smoking Status Entered [facility] NEGATED: Highlighted rowStart: NINF History of tobacco use Passive smoker [facility] Medical Equipment Procedure Code Equipment Code Equipment Origin al Text Equipment Identifier Dates Pen [place] [id number] X 5 MM Start: 05-18-2022 Goals Date Patient Goal Desired Activity /State Personal health goal Functional Status Date Assessment Result Facility 09-06-2024 Functional Status N/A [facility] 09-05-2024 Functional Status N/A [facility] 09-05-2024 Functional Status N/A [facility] 03-18-2024 Functional Status N/A [facility] 09-29-2023 Functional Status N/A [facility] 03-22-2023 Functional Status N/A [facility] 02-18-2022 Functional Status N/A [facility] Clinical Notes 01-14-2022 to 09-07-2024 HIPOLITO Shore - 09/07/2024 2:30 PM EST Note Date & Type Note Facility 09-07-2024 History of Presen t illness Narrative Reason for Appointment: Patient ID: Tawnya Shay is a 29 y.o. female who presents for Routine Visit Patient presents today for Return OB appointment. MEDICATIONS Current Outpatient Medications Medication Instructions ASPIRIN 81 PO 81 mg, Daily CeleXA 20 MG tablet Every 24 hours levothyroxine (SYNTHROID, LEVOXYL) 100 mcg, Oral, Daily magnesium oxide (MAG-OX) 400 mg, Oral, Daily omeprazole (PRILOSEC) 20 mg, Oral, Daily before breakfast, Do not crush or chew. MV-Min-Fe Fum-FA-DHA ( 1 PO) 1 each, Daily promethazine (PHENERGAN) 12.5 mg, Oral, Every 6 hours PRN, Take 1 tablet by mouth every 6 hours as needed for nausea. ALLERGIES No Known Allergies PROBLEMS Active Ambulatory Problems Diagnosis Date Noted 22 weeks gestation of 07/11/2024 Second trimester 07/11/2024 Nausea and vomiting during 07/11/2024 Resolved Ambulatory Problems Diagnosis Date Noted No Resolved Ambulatory Problems Past Medical History: Diagnosis Date Anxiety Blood type, Rh positive H/O calculus of kidney during Tiffani's disease (CMS/HCC) 02/2022 History of Obesity (BMI 30-39.9) Pericarditis HISTORY PAST MEDICAL HISTORY SOCIAL HISTORY Past Medical History: Diagnosis Date Anxiety Blood type, Rh positive H/O calculus of kidney during Tiffani's disease ([facility]/HCC) 02/2022 History of Obesity (BMI 30-39.9) Pericarditis Social History Tobacco Use Smoking status: Never Smokeless tobacco: Not on file Substance Use Topics Alcohol use: Never Drug use: Not on file FAMILY HISTORY Family History Problem Relation Name Age of Onset Hypertension Father SURGICAL HISTORY Past Surgical History: Procedure Laterality Date SECTION, LOW TRANSVERSE 2020 CYSTOSCOPY REVIEW OF SYSTEMS Review of Systems: Review of Systems Constitutional: Negative. HENT: Negative. Eyes: Negative. Respiratory: Negative. Cardiovascular: Negative. Gastrointestinal: Negative. Genitourinary: Negative. Musculoskeletal: Negative. Skin: Negative. Neurological: Negative. All other systems reviewed and are negative. Hematological: Negative. Endocrine: Negative. Allergic/Immunologic: Negative. OBJECTIVE Objective: Physical Exam Constitutional: Appearance: Normal appearance. She is normal weight. HENT: Head: Normocephalic. Cardiovascular: Rate and Rhythm: Normal rate. Pulses: Normal pulses. Pulmonary: Effort: Pulmonary effort is normal. Breath sounds: Normal breath sounds. Abdominal: Palpations: Abdomen is soft. Musculoskeletal: General: Normal range of motion. Neurological: General: No focal deficit present. Mental Status: She is alert and oriented to person, place, and time. Psychiatric: Mood and Affect: Mood normal. Behavior: Behavior normal. Thought Content: Thought content normal. Judgment: Judgment normal. Vitals and nursing note reviewed. Vitals: Estimated body mass index is 39.75 kg/m as calculated from the following: Height as of 08/25/23: 5' 7 . Weight as of this encounter: 253 lb 12.8 oz. BP: 120/82 Patient's last menstrual period was 02/02/2024 (exact date). ASSESSMENT & PLAN ICD-10-CM 1. Third trimester Z34.93 Urine dip 2. 31 weeks gestation of Z3A.31 Urine dip 3. size inconsistent with dates O26.849 US OB follow up transabdominal approach Return OB: Patient presents today for a routine obstetrics appointment. Patient is currently 31w1d . Patient states she is doing well but has complaints of being tired due to current . Patient has verbalizes frequent movement. labor precautions was discussed/given and patient was instructed to perform kick counts three times a day. Orders Placed This Encounter Procedures US OB follow up transabdominal approach Urine dip Follow Up: Patient is to return to office in 2 week for routine OB appointment. Documented by HIPOLITO Shore on behalf of: HIPOLITO Sohre documented in this encounter [facility] 09-07-2024 Note History and Physical HOSPITAL REGULATIONS: All Positive and Important Negative Findings Shall Be Recorded DATE ADMITTED: 09/05/2024 SHORT-STAY EMERGENCY EVALUATION The patient is a 29-year-old white female who presented to Labor and Delivery at 30 weeks and 6 days with severe nausea, vomiting, and diarrhea with signs of dehydration to the Emergency Room. She was brought in for dehydration and on evaluation, she was found to have contractions on the monitor. Evaluation of her urinalysis revealed what was apparent urinary tract infection. She had had a previous history of pre-term labor. PAST MEDICAL HISTORY: Includes a history of kidney stones, history of Tiffani disease, history of section. Also, history of pericarditis. Prior to this, on evaluation she was found to have urinary tract infection with contractions that were tocolysed with terbutaline. She continued her hydration. She had continued problems with diarrhea, which finally resolved with appropriate dosing of Imodium. She was given 2 grams of Ancef and a second dose of Ancef, prescription for Keflex. Her contractions had resolved. Her cervix was long and closed. She is discharged to keep her visit with her physician, Dr. Way, as scheduled. Rogelio Nath M.D. leeroy Dictated: 09/05/2024 [id number] Transcribed: 09/05/2024 [facility] Comment on above: Result Comment: Elec tronically Signed By: Rogelio Nath MD\.br\Date and Time Signed: 09/07/24 08:38 EST 09-06-2024 Hospital Discharg e instructions Patient Education 09/06/2024 16:15:07 Concussion, Adult, [id number] Concussion, Adult A concussion is a brain injury from a hard, direct hit (trauma) to your head or body. This hit causes your brain to quickly shake back and forth inside your skull. A concussion may also be called a mild traumatic brain injury (TBI). Healing from this injury can take time. The effects of a concussion can be serious. If you have a concussion, you should be very careful to avoid having a second concussion. What are the causes? This condition is caused by: A direct hit to your head. A quick and sudden movement of the head or neck, such as in a car crash. What are the signs or symptoms? The signs of a concussion can be hard to notice. They may be missed by you, family members, and doctors. You may look fine on the outside but may not act or feel normal. Physical symptoms Headaches or feeling dizzy. Problems with body balance. Being sensitive to light or noise. Vomiting or feeling like you may vomit. Being tired. Problems seeing or hearing. Seizure. Mental and emotional symptoms Feeling grouchy (irritable) or having mood changes. Problems remembering things. Trouble focusing your mind (concentrating), organizing, or making decisions. Not sleeping or eating as you used to. Being slow to think, act, react, speak, or read. Feeling worried or nervous (anxious). Feeling sad (depressed). How is this treated? This condition may be treated by: Stopping sports or activity if you are injured. Resting your body and your mind. Being watched carefully, often at home. Medicines to help with symptoms such as: ?Headaches. ?Feeling like you may vomit. ?Problems with sleep. You may need to go to a concussion clinic or a place to help you recover (rehab). Follow these instructions at home: Activity Limit activities that need a lot of thought or focus, such as: ?Homework or work for your job. ?Watching TV. ?Using the computer or phone. ?Playing memory games and puzzles. Get rest because this helps your brain heal. Make sure you: ?Get plenty of sleep. Most adults should get 7 9 hours of sleep each night. ?Rest during the day. Take naps or breaks when you feel tired. Avoid activity or exercise that takes a lot of effort until your doctor says it is safe. ?Stop any activity that makes symptoms worse. ?Your doctor may tell you to do light exercise like walking. Do not do activities that could cause a second concussion, such as riding a bike or playing sports. Ask your doctor when you can return to your normal activities, such as school, work, sports, and driving. ?Your ability to react may be slower. ?Do not do these activities if you are dizzy. General instructions Take rzha-jjl-uzwcmnr and prescription medicines only as told by your doctor. Avoid taking strong pain medicines (opioids) after a concussion. Do not drink alcohol until your doctor says you can. Watch your symptoms and tell other people to do the same. Other problems can occur after a concussion. Tell your drug department worker, teachers, school nurse, school counselor, middle school coach, or animal trainer about your injury and symptoms. Tell them about what you can or cannot do. See a mental health therapist if you keep feeling worried and nervous or sad. Keep all follow-up visits. Your doctor will check on your recovery and give you a plan for returning to activities. How is this prevented? It is very important that you do not get another brain injury. In rare cases, another injury can cause brain damage that will not go away, brain swelling, or . The risk of this is greatest in the first 7 10 days after a head injury. To avoid injuries: Stop activities that could lead to a second concussion, such as contact sports, until your doctor says it is okay. When you return to sports or activities: ?Do not crash into other players. This is how most concussions happen. ?Follow the rules. ?Respect other players. Do not engage in violent behavior while playing. Get regular exercise. Do strength and balance training. Wear a helmet that fits you well during sports, biking, or other activities. Helmets can help protect you from serious skull and brain injuries, but they may not protect you from a concussion. Even when wearing a helmet, you should avoid being hit in the head. Where to find more information Centers for Disease Control and Prevention: cdc.gov Contact a doctor if: Your symptoms do not get better or get worse. You have new symptoms. You have another injury. Your balance gets worse. You have changes in how you act. Get help right away if: You have very bad headaches or your headaches get worse. You have any of these problems: ?Feeling weak or numb in any part of your body. ?Slurred speech. ?Changes in how you see (vision). ?Feeling mixed up (confused). You vomit often. You faint or other people have trouble waking you up. You have a seizure. These symptoms may be an emergency. Get help right away. Call 911. Do not wait to see if the symptoms will go away. Do not drive yourself to the hospital. Also, get help right away if: You have thoughts of hurting yourself or others. Take one of these steps if you feel like you may hurt yourself or others, or have thoughts about taking your own life: Go to your nearest emergency room. Call 911. Call the National Suicide Prevention Lifeline at or 932. This is open 24 hours a day. Text the Crisis Text Line at 663084. This information is not intended to replace advice given to you by your health care provider. Make sure you discuss any questions you have with your health care provider. Document Revised: 12/25/2022 Document Reviewed: 12/25/2022 [employer] Patient Education 2023 [employer]. Follow Up Care 09/06/2024 13:58:27 With:[facility] Address: [address] [place] [id number] [phone] Business (1) When:09/09/2024 16:14:40 Comments:Call to schedule a follow-up appointment with your primary care provider. Use Zofran as needed for nausea/vomiting. Return to the ED with any new or worsening symptoms. [facility] 09-06-2024 Note ED Patient Education Note Neurology Concussion, Adult A concussion is a brain injury from a hard, direct hit (trauma) to your head or body. This hit causes your brain to quickly shake back and forth inside your skull. A concussion may also be called a mild traumatic brain injury (TBI). Healing from this injury can take time. The effects of a concussion can be serious. If you have a concussion, you should be very careful to avoid having a second concussion. What are the causes? This condition is caused by: ??? A direct hit to your head. ??? A quick and sudden movement of the head or neck, such as in a car crash. What are the signs or symptoms? The signs of a concussion can be hard to notice. They may be missed by you, family members, and doctors. You may look fine on the outside but may not act or feel normal. Physical symptoms ??? Headaches or feeling dizzy. ??? Problems with body balance. ??? Being sensitive to light or noise. ??? Vomiting or feeling like you may vomit. ??? Being tired. ??? Problems seeing or hearing. ??? Seizure. Mental and emotional symptoms ??? Feeling grouchy (irritable) or having mood changes. ??? Problems remembering things. ??? Trouble focusing your mind (concentrating), organizing, or making decisions. ??? Not sleeping or eating as you used to. ??? Being slow to think, act, react, speak, or read. ??? Feeling worried or nervous (anxious). ??? Feeling sad (depressed). How is this treated? This condition may be treated by: ??? Stopping sports or activity if you are injured. ??? Resting your body and your mind. ??? Being watched carefully, often at home. ??? Medicines to help with symptoms such as: ? Headaches. ? Feeling like you may vomit. ? Problems with sleep. You may need to go to a concussion clinic or a place to help you recover (rehab). Follow these instructions at home: Activity ??? Limit activities that need a lot of thought or focus, such as: ? Homework or work for your job. ? Watching TV. ? Using the computer or phone. ? Playing memory games and puzzles. ??? Get rest because this helps your brain heal. Make sure you: ? Get plenty of sleep. Most adults should get 7?9 hours of sleep each night. ? Rest during the day. Take naps or breaks when you feel tired. ??? Avoid activity or exercise that takes a lot of effort until your doctor says it is safe. ? Stop any activity that makes symptoms worse. ? Your doctor may tell you to do light exercise like walking. ??? Do not do activities that could cause a second concussion, such as riding a bike or playing sports. ??? Ask your doctor when you can return to your normal activities, such as school, work, sports, and driving. ? Your ability to react may be slower. ? Do not do these activities if you are dizzy. General instructions ??? Take nnfr-nft-nqngskk and prescription medicines only as told by your doctor. ??? Avoid taking strong pain medicines (opioids) after a concussion. ??? Do not drink alcohol until your doctor says you can. ??? Watch your symptoms and tell other people to do the same. Other problems can occur after a concussion. ??? Tell your drug department worker, teachers, school nurse, school counselor, middle school coach, or animal trainer about your injury and symptoms. Tell them about what you can or cannot do. ??? See a mental health therapist if you keep feeling worried and nervous or sad. ??? Keep all follow-up visits. Your doctor will check on your recovery and give you a plan for returning to activities. How is this prevented? It is very important that you do not get another brain injury. In rare cases, another injury can cause brain damage that will not go away, brain swelling, or . The risk of this is greatest in the first 7?10 days after a head injury. To avoid injuries: ??? Stop activities that could lead to a second concussion, such as contact sports, until your doctor says it is okay. ??? When you return to sports or activities: ? Do not crash into other players. This is how most concussions happen. ? Follow the rules. ? Respect other players. Do not engage in violent behavior while playing. ??? Get regular exercise. Do strength and balance training. ??? Wear a helmet that fits you well during sports, biking, or other activities. ??? Helmets can help protect you from serious skull and brain injuries, but they may not protect you from a concussion. Even when wearing a helmet, you should avoid being hit in the head. Where to find more information ??? Centers for Disease Control and Prevention: cdc.gov Contact a doctor if: ??? Your symptoms do not get better or get worse. ??? You have new symptoms. ??? You have another injury. ??? Your balance gets worse. ??? You have changes in how you act. Get help right away if: ??? You have very bad headaches or your headaches get worse. ??? You have any (more content not included)... [facility] 09-06-2024 Evaluation + Plan note Extrac [place] from: Title:ED Note Author:Lashon Tee PA-C te:09/06/24 JEFFERSON (headache) (R51.9: Headac he, unspecified) Orders: acetaminophen, 975 mg = 3 tab(s), Tab, Oral, Once, Stop date 09/06/24 15:24:00 EST, STAT, Start date 09/06/24 15:24:00 EST, 09/06/24 15:24:00 EST diphenhydrAMINE, 12.5 mg = 0.25 mL, Injection, IntraMuscular, Once, Stop date 09/06/24 15:25:00 EST, STAT, Start date 09/06/24 15:25:00 EST, 09/06/24 15:25:00 EST ondansetron, 4 mg = 1 tab(s), Tab-Dis, Oral, Once, Stop date 09/06/24 15:25:00 EST, STAT, Start date 09/06/24 15:25:00 EST, 09/06/24 15:25:00 EST [facility] [id number] NoteDischarge Instructions Given Worsening The following Patient Education Materials have been given to the patient: ~~ [facility] + Plan note Extracted from: Title:ED Note Author:Gabriel Curtis DO Date :09/05/24 Dehydration (E86.0: Dehydrat ion) Diarrhea, unspecified (R19.7: Diarrhea, unspecified) Nausea, vomiting, and diarrhea (R11.2: Nausea with vomiting, unspecified) Syncope (R55: Syncope and collapse) Orders: ondansetron, 4 mg = 2 mL, Injection, IV Push, Once, Stop date 09/05/24 3:21:00 EST, STAT, Start date 09/05/24 3:21:00 EST, 09/05/24 3:21:00 EST promethazine 25 mg + Sodium Chloride 0.9% intravenous solution 50 mL, Injection, IV Piggyback, Once, Stop date 09/05/24 3:51:00 EST, STAT, Start date 09/05/24 3:51:00 EST, 153 mL/hr, Infuse over 20 minute(s) Sodium Chloride 0.9% intravenous solution, 1,000 mL, Soln-IV, IV, Once, Stop date 09/05/24 3:21:00 EST, STAT, Start date 09/05/24 3:21:00 EST, Infuse over 61, minute(s) Basic Metabolic Panel CBC w/ Auto Diff eGFR Hepatic Function Panel Influenza A&B Ag Lipase Level Troponin 0 Hr. UA with Cult Rflx Diagnostic Tests Pending * Urine Culture 09/05/24 [facility] 01-21-2025 Hospital Discharge instructions Patient Education 09/05/2024 04:35:45 Syncope, Adult, Xduz-qy-Kpie Syncope, Adult Syncope is when you pass out or faint for a short time. It is caused by a sudden decrease in blood flow to the brain. This can happen for many reasons. It can sometimes happen when seeing blood, getting a shot (injection), or having pain or strong emotions. Most causes of fainting are not dangerous, but in some cases it can be a sign of a serious medical problem. If you faint, get help right away. Call your local emergency services (501 in the [place] Follow these instructions at home: Watch for any changes in your symptoms. Take these actions to stay safe and help with your symptoms: Knowing when you may be about to faint Signs that you may be about to faint include: ?Feeling dizzy or light-headed. It may feel like the room is spinning. ?Feeling weak. ?Feeling like you may vomit (nauseous). ?Seeing spots or seeing all white or all black. ?Having cold, clammy skin. ?Feeling warm and sweaty. ?Hearing ringing in the ears. If you start to feel like you might faint, sit or lie down right away. If sitting, lower your head down between your legs. If lying down, raise (elevate) your feet above the level of your heart. ?Breathe deeply and steadily. Wait until all of the symptoms are gone. ?Have someone stay with you until you feel better. Medicines Take lpqh-ado-wjyeqag and prescription medicines only as told by your doctor. If you are taking blood pressure or heart medicine, sit up and stand up slowly. Spend a few minutesgetting ready to sit and then stand. This can help you feel less dizzy. Lifestyle Do not drive, use machinery, or play sports until your doctor says it is okay. Do not drink alcohol. Do not smoke or use any products that contain nicotine or tobacco. If you need help quitting, ask your doctor. Avoid hot tubs and saunas. General instructions Talk with your doctor about your symptoms. You may need to have testing to help find the cause. Drink enough fluid to keep your pee (urine) pale yellow. Avoid standing for a long time. If you must stand for a long time, do movements such as: ?Moving your legs. ?Crossing your legs. ?Flexing and stretching your leg muscles. ?Squatting. Keep all follow-up visits. Contact a doctor if: You have episodes of near fainting. Get help right away if: You pass out or faint. You hit your head or are injured after fainting. You have any of these symptoms: ?Fast or uneven heartbeats (palpitations). ?Pain in your chest, belly, or back. ?Shortness of breath. You have jerky movements that you cannot control (seizure). You have a very bad headache. You are confused. You have problems with how you see (vision). You are very weak. You have trouble walking. You are bleeding from your mouth or your butt (rectum). You have black or tarry poop (stool). These symptoms may be an emergency. Get help right away. Call your local emergency services (911 int [place] Do not wait to see if the symptoms will go away. Do not drive yourself to the hospital. Summary Syncope is when you pass out or faint for a short time. It is caused by a sudden decrease in blood flow to the brain. Signs that you may be about to faint include feeling dizzy or light-headed, feeling like you may vomit, seeing all white or all black, or having cold, clammy skin. If you start to feel like you might faint, sit or lie down right away. Lower your head if sitting, or raise (elevate) your feet if lying down. Breathe deeply and steadily. Wait until all of the symptoms are gone. This information is not intended to replace advice given to you by your health care provider. Make sure you discuss any questions you have with your health care provider. Document Revised: 12/11/2021 Document Reviewed: 12/11/2021 [employer] Patient Education 2023 ProxToMe. 09/05/2024 04:35:45 Nausea and Vomiting, Adult, Pfbw-vb-Bnzi Nausea and Vomiting, Adult Nausea is feeling that you have an upset stomach and that you are about to vomit. Vomiting is when food in your stomach forcefully comes out of your mouth. Vomiting can make you feel weak. If you vomit, or if you are not able to drink enough fluids, you may not have enough water in your body (get dehydrated). If you do not have enough water in your body, you may: Feel tired. Feel thirsty. Have a dry mouth. Have cracked lips. Pee (urinate) less often. Older adults and people with other diseases or a weak body defense system (immune system) are at higher risk for not having enough water in the body. If you feel like you may vomit or you vomit, it is important to follow instructions from your doctor about how to take care of yourself. Follow these instructions at home: Watch your symptoms for any changes. Tell your doctor about them. Eating and drinking Take an ORS (oral rehydration solution). This is a drink that is sold at pharmacies and stores. Drink clear fluids in small amounts as you are able, such as: ?Water. ?Ice chips. ?Fruit juice that has water added (diluted fruit juice). ?Low-calorie sports drinks. Eat bland, ytci-np-djomob foods in small amounts as you are able, such as: ?Bananas. ?Applesauce. ?Rice. ?Low-fat (lean) meats. ?[place]. ?Crackers. Avoid drinking fluids that have a lot of sugar or caffeine in them. This includes energy drinks, sports drinks, and soda. Avoid alcohol. Avoid spicy or fatty foods. General instructions Take fpze-ebo-bgwnfgm and prescription medicines only as told by your doctor. Drink enough fluid to keep your pee (urine) pale yellow. Wash your hands often with soap and water for at least 20 seconds. If you cannot use soap and water, use hand motor analyst. Make sure that everyone in your home washes their hands well and often. Rest at home until you feel better. Watch your condition for any changes. Take slow and deep breaths when you feel like you may vomit. Keep all follow-up visits. Contact a doctor if: Your symptoms get worse. You have new symptoms. You have a fever. You cannot drink fluids without vomiting. You feel like you may vomit for more than 2 days. You feel light-headed or dizzy. You have a headache. You have muscle cramps. You have a rash. You have pain while peeing. Get help right away if: You have pain in your chest, neck, arm, or jaw. You feel very weak or you faint. You vomit again and again. You have vomit that is bright red or looks like black coffee grounds. You have bloody or black poop (stools) or poop that looks like tar. You have a very bad headache, a stiff neck, or both. You have very bad pain, cramping, or bloating in your belly (abdomen). You have trouble breathing. You are breathing very quickly. Your heart is beating very quickly. Your skin feels cold and clammy. You feel confused. You have signs of losing too much water in your body, such as: ?Dark pee, very little pee, or no pee. ?Cracked lips. ?Dry mouth. ?Sunken eyes. ?Sleepiness. ?Weakness. These symptoms may be an emergency. Get help right away. Call 911. Do not wait to see if the symptoms will go away. Do not drive yourself to the hospital. Summary Nausea is feeling that you have an upset stomach and that you are about to vomit. Vomiting is when food in your stomach comes out of your mouth. Follow instructions from your doctor about eating and drinking. Take fqqm-ajb-xiqklbq and prescription medicines only as told by your doctor. Contact your doctor if your symptoms get worse or you have new symptoms. Keep all follow-up visits. This information is not intended to replace advice given to you by your health care provider. Make sure you discuss any questions you have with your health care provider. Document Revised: 02/06/2022 Document Reviewed: 02/06/2022 [employer] Patient Education 2023 [employer]ToMe. 09/05/2024 04:35:45 Diarrhea, Adult, Rbir-hv-Wewb Diarrhea, Adult Diarrhea is when you pass loose and sometimes watery poop (stool) often. Diarrhea can make you feelweak and cause you to lose water in your body (get dehydrated). Losing water in your body can causeyou to: Feel tired and thirsty. Have a dry mouth. Go pee (urinate) less often. Diarrhea often lasts 2 3 days. It can last longer if it is a sign of something more serious. Be sure to treat your diarrhea as told by your doctor. Follow these instructions at home: Eating and drinking Follow these instructions as told by your doctor: Take an ORS (oral rehydration solution). This is a drink that helps you replace fluids and mineralsyour body lost. It is sold at pharmacies and stores. Drink enough fluid to keep your pee (urine) pale yellow. ?Drink fluids such as: ?Water. You can also get fluids by sucking on ice chips. ?Diluted fruit juice. ?Low-calorie sports drinks. ?Milk. ?Avoid drinking fluids that have a lot of sugar or caffeine in them. These include soda, energy drinks, and regular sports drinks. ?Avoid alcohol. Eat bland, riny-qc-ikvccd foods in small amounts as you are able. These foods include: ?Bananas. ?Applesauce. ?Rice. ?Low-fat (lean) meats. ?[place]. ?Crackers. Avoid spicy or fatty foods. Medicines Take tafc-xtu-bvystgz and prescription medicines only as told by your doctor. If you were prescribed antibiotics, take them as told by your doctor. Do not stop taking them even if you start to feel better. General instructions Wash your hands often using soap and water for 20 seconds. If soap and water are not available, usehand motor analyst. Others in your home should wash their hands as well. Wash your hands: ?After using the toilet or changing a diaper. ?Before preparing, cooking, or serving food. ?While caring for a sick person. ?While visiting someone in a hospital. Rest at home while you get better. Take a warm bath to help with any burning or pain from having diarrhea. Watch your condition for any changes. Contact a doctor if: You have a fever. Your diarrhea gets worse. You have new symptoms. You vomit every time you eat or drink. You feel light-headed, dizzy, or you have a headache. You have muscle cramps. You have signs of losing too much water in your body, such as: ?Dark pee, very little pee, or no pee. ?Cracked lips. ?Dry mouth. ?Sunken eyes. ?Sleepiness. ?Weakness. You have bloody or black poop or poop that looks like tar. You have very bad pain, cramping, or bloating in your belly (abdomen). Your skin feels cold and clammy. You feel confused. Get help right away if: You have chest pain. Your heart is beating very quickly. You have trouble breathing or you are breathing very quickly. You feel very weak or you faint. These symptoms may be an emergency. Get help right away. Call 911. Do not wait to see if the symptoms will go away. Do not drive yourself to the hospital. This information is not intended to replace advice given to you by your health care provider. Make sure you discuss any questions you have with your health care provider. Document Revised: 01/19/2023 Document Reviewed: 01/19/2023 [employer] Patient Education 2023 [employer]. 09/05/2024 04:35:45 Dehydration, Adult, Oqrv-og-Tyce Dehydration, Adult Dehydration is a condition in which there is not enough water or other fluids in the body. This happens when a person loses more fluids than they take in. Important organs cannot work right without the right amount of fluids. Any loss of fluids from the body can cause dehydration. Dehydration can be mild, worse, or very bad. It should be treated right away to keep it from getting very bad. What are the causes? Conditions that cause loss of water in the body. They include: ?Watery poop (diarrhea). ?Vomiting. ?Sweating a lot. ?Fever. ?Infection. ?Peeing (urinating) a lot. Not drinking enough fluids. Certain medicines, such as medicines that take extra fluid out of the body (diuretics). Lack of safe drinking water. Not being able to get enough water and food. What increases the risk? Having a long-term (chronic) illness that has not been treated the right way, such as: ?Diabetes. ?Heart disease. ?Kidney disease. Being 65 years of age or older. Having a disability. Living in a place that is high above the ground or sea (high in altitude). The thinner, atmospheric drier tender air causes more fluid loss. Doing exercises that put stress on your body for a long time. Being active when in hot places. What are the signs or symptoms? Symptoms of dehydration depend on how bad it is. Mild or worse dehydration Thirst. Dry lips or dry mouth. Feeling dizzy or light-headed. Muscle cramps. Passing little pee or dark pee. Pee may be the color of tea. Headache. Very bad dehydration Changes in skin. Skin may: ?Be cold to the touch (clammy). ?Be blotchy or pale. ?Not go back to normal right after you pinch it and let it go. Little or no tears, pee, or sweat. Fast breathing. Low blood pressure. Weak pulse. Pulse that is more than 100 beats a minute when you are sitting still. Other changes, such as: ?Feeling very thirsty. ?Eyes that look hollow (sunken). ?Cold hands and feet. ?Being confused. ?Being very tired (lethargic) or having trouble waking from sleep. ?Losing weight. ?Loss of consciousness. How is this treated? Treatment for this condition depends on how bad your dehydration is. Treatment should start right away. Do not wait until your condition gets very bad. Very bad dehydration is an emergency. You will need to go to a hospital. Mild or worse dehydration can be treated at home. You may be asked to: ?Drink more fluids. ?Drink an oral rehydration solution (ORS). This drink gives you the right amount of fluids, salts, and minerals (electrolytes). Very bad dehydration can be treated: ?With fluids through an IV tube. ?By correcting low levels of electrolytes in the body. ?By treating the problem that caused your dehydration. Follow these instructions at home: Oral rehydration solution If told by your doctor, drink an ORS: Make an ORS. Use instructions on the package. Start by drinking small amounts, about cup (120 mL) every 5 10 minutes. Slowly drink more until you have had the amount that your doctor said to have. Eating and drinking Drink enough clear fluid to keep your pee pale yellow. If you were told to drink an ORS, finish theORS first. Then, start slowly drinking other clear fluids. Drink fluids such as: ?Water. Do not drink only water. Doing that can make the salt (sodium) level in your body get too low. ?Water from ice chips you suck on. ?Fruit juice that you have added water to (diluted). ?Low-calorie sports drinks. Eat foods that have the right amounts of salts and minerals, such as bananas, oranges, potatoes, tomatoes, or spinach. Do not drink alcohol. Avoid drinks that have caffeine or sugar. These include:: ?High-calorie sports drinks. ?Fruit juice that you did not add water to. ?Soda. ?Coffee or energy drinks. Avoid foods that are greasy or have a lot of fat or sugar. General instructions Take cgqm-mgy-rmzuuue and prescription medicines only as told by your doctor. Do not take sodium tablets. Doing that can make the salt level in your body get too high. Return to your normal activities as told by your doctor. Ask your doctor what activities are safe for you. Keep all follow-up visits. Your doctor may check and change your treatment. Contact a doctor if: You have pain in your belly (abdomen) and the pain: ?Gets worse. ?Stays in one place. You have a rash. You have a stiff neck. You get angry or annoyed more easily than normal. You are more tired or have a harder time waking than normal. You feel weak or dizzy. You feel very thirsty. Get help right away if: You have any symptoms of very bad dehydration. You vomit every time you eat or drink. Your vomiting gets worse, does not go away, or you vomit blood or green stuff. You are getting treatment, but symptoms are getting worse. You have a fever. You have a very bad headache. You have: ?Diarrhea that gets worse or does not go away. ?Blood in your poop (stool). This may cause poop to look black and tarry. ?No pee in 6 8 hours. ?Only a small amount of pee in 6 8 hours, and the pee is very dark. You have trouble breathing. These symptoms may be an emergency. Get help right away. Call 911. Do not wait to see if the symptoms will go away. Do not drive yourself to the hospital. This information is not intended to replace advice given to you by your health care provider. Make sure you discuss any questions you have with your health care provider. Document Revised: 03/01/2023 Document Reviewed: 03/01/2023 [employer] Patient Education 2023 [employer]. Follow Up Care 09/05/2024 03:04:39 With:Brain SEAMUS Address: [address] 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 Way for further evaluation management. Please return to the ED for any new or worsening symptoms. [facility] [id number] NoteProgress Note-Nurse @1660 OB RN arrived in patient room in ER room 14. Patient placed on & ctx monitor. Patient ctx every 2-5 min 40-60 sec with some 20-30sec irritability. Ctx mild to palpation. Pt rates them 4/10 on pain scale. reactive for gestation with baseline HR of 130. RN will report finding to OB Dr Nath and ask about admission for further evaluation on OB unit.[facility]01-21-2025 NoteED Patient Education Note Gastroenterology Nausea and Vomiting, Adult Nausea is feeling that you have an upset stomach and that you are about to vomit. Vomiting is when food in your stomach forcefully comes out of your mouth. Vomiting can make you feel weak. If you vomit, or if you are not able to drink enough fluids, you may not have enough water in your body (get dehydrated). If you do not have enough water in your body, you may: ??? Feel tired. ??? Feel thirsty. ??? Have a dry mouth. ??? Have cracked lips. ??? Pee (urinate) less often. Older adults and people with other diseases or a weak body defense system (immune system) are at higher risk for not having enough water in the body. If you feel like you may vomit or you vomit, it is important to follow instructions from your doctor about how to take care of yourself. Follow these instructions at home: Watch your symptoms for any changes. Tell your doctor about them. Eating and drinking ??? Take an ORS (oral rehydration solution). This is a drink that is sold at pharmacies and stores. ??? Drink clear fluids in small amounts as you are able, such as: ? Water. ? Ice chips. ? Fruit juice that has water added (diluted fruit juice). ? Low-calorie sports drinks. ??? Eat bland, vxwk-ts-smngmp foods in small amounts as you are able, such as: ? Bananas. ? Applesauce. ? Rice. ? Low-fat (lean) meats. ? [place]. ? Crackers. ??? Avoid drinking fluids that have a lot of sugar or caffeine in them. This includes energy drinks, sports drinks, and soda. ??? Avoid alcohol. ??? Avoid spicy or fatty foods. General instructions ??? Take bayz-bli-dhovszn and prescription medicines only as told by your doctor. ??? Drink enough fluid to keep your pee (urine) pale yellow. ??? Wash your hands often with soap and water for at least 20 seconds. If you cannot use soap and water, use hand motor analyst. ??? Make sure that everyone in your home washes their hands well and often. ??? Rest at home until you feel better. ??? Watch your condition for any changes. ??? Take slow and deep breaths when you feel like you may vomit. ??? Keep all follow-up visits. Contact a doctor if: ??? Your symptoms get worse. ??? You have new symptoms. ??? You have a fever. ??? You cannot drink fluids without vomiting. ??? You feel like you may vomit for more than 2 days. ??? You feel light-headed or dizzy. ??? You have a headache. ??? You have muscle cramps. ??? You have a rash. ??? You have pain while peeing. Get help right away if: ??? You have pain in your chest, neck, arm, or jaw. ??? You feel very weak or you faint. ??? You vomit again and again. ??? You have vomit that is bright red or looks like black coffee grounds. ??? You have bloody or black poop (stools) or poop that looks like tar. ??? You have a very bad headache, a stiff neck, or both. ??? You have very bad pain, cramping, or bloating in your belly (abdomen). ??? You have trouble breathing. ??? You are breathing very quickly. ??? Your heart is beating very quickly. ??? Your skin feels cold and clammy. ??? You feel confused. ??? You have signs of losing too much water in your body, such as: ? Dark pee, very little pee, or no pee. ? Cracked lips. ? Dry mouth. ? Sunken eyes. ? Sleepiness. ? Weakness. These symptoms may be an emergency. Get help right away. Call 911. ??? Do not wait to see if the symptoms will go away. ??? Do not drive yourself to the hospital. Summary ??? Nausea is feeling that you have an upset stomach and that you are about to vomit. Vomiting is when food in your stomach comes out of your mouth. ??? Follow instructions from your doctor about eating and drinking. ??? Take kkzk-qcg-ggwagxl and prescription medicines only as told by your doctor. ??? Contact your doctor if your symptoms get worse or you have new symptoms. ??? Keep all follow-up visits. This information is not intended to replace advice given to you by your health care provider. Make sure you discuss any questions you have with your health care provider. Document Revised: 02/06/2022 Document Reviewed: 02/06/2022 [employer] Patient Education ? 2023 [employer] Inc. Infectious Disease Diarrhea, Adult Diarrhea is when you pass loose and sometimes watery poop (stool) often. Diarrhea can make you feelweak and cause you to lose water in your body (get dehydrated). Losing water in your body can causeyou to: ??? Feel tired and thirsty. ??? Have a dry mouth. ??? Go pee (urinate) less often. Diarrhea often lasts 2?3 days. It can last longer if it is a sign of something more serious. Be sure to treat your diarrhea as told by your doctor. Follow these instructions at home: Eating and drinking Follow these instructions as told by your doctor: ??? 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 Work Phone: [phone] 134-321801-08-2025 History of Present illness Narrative* Aleisha Abreu, RASHEED - 08/23/2024 11:00 AM EST Reason for Appointment: Patient ID: Tawnya Herring is a 29 y.o. female who presents for Routine Visit Patient presents today for Return OB appointment. MEDICATIONS Current Outpatient Medications Medication Instructions ASPIRIN 81 PO 81 mg, Daily CeleXA 20 MG tablet Every 24 hours levothyroxine (SYNTHROID, LEVOXYL) 100 mcg, Oral, Daily magnesium oxide (MAG-OX) 400 mg, Oral, Daily omeprazole (PRILOSEC) 20 mg, Oral, Daily before breakfast, Do not crush or chew. MV-Min-Fe Fum-FA-DHA ( 1 PO) 1 each, Daily promethazine (PHENERGAN) 12.5 mg, Oral, Every 6 hours PRN, Take 1 tablet by mouth every 6 hours as needed for nausea. ALLERGIES No Known Allergies PROBLEMS Active Ambulatory Problems Diagnosis Date Noted 22 weeks gestation of 07/11/2024 Second trimester 07/11/2024 Nausea and vomiting during 07/11/2024 Resolved Ambulatory Problems Diagnosis Date Noted No Resolved Ambulatory Problems Past Medical History: Diagnosis Date Anxiety Blood type, Rh positive H/O calculus of kidney during Tiffani's disease (CMS/HCC) 02/2022 History of Obesity (BMI 30-39.9) Pericarditis HISTORY PAST MEDICAL HISTORY SOCIAL HISTORY Past Medical History: Diagnosis Date Anxiety Blood type, Rh positive H/O calculus of kidney during Tiffani's disease (CMS/HCC) 02/2022 History of Obesity (BMI 30-39.9) Pericarditis Social History Tobacco Use Smoking status: Never Smokeless tobacco: Not on file Substance Use Topics Alcohol use: Never Drug use: Not on file FAMILY HISTORY Family History Problem Relation Name Age of Onset Hypertension Father SURGICAL HISTORY Past Surgical History: Procedure Laterality Date SECTION, LOW TRANSVERSE 2020 CYSTOSCOPY REVIEW OF SYSTEMS Review of Systems: Review of Systems Constitutional: Negative. HENT: Negative. Eyes: Negative. Respiratory: Negative. Cardiovascular: Negative. Gastrointestinal: Negative. Genitourinary: Negative. Musculoskeletal: Negative. Skin: Negative. Neurological: Negative. All other systems reviewed and are negative. Hematological: Negative. Endocrine: Negative. Allergic/Immunologic: Negative. OBJECTIVE Objective: Physical Exam Constitutional: Appearance: Normal appearance. She is well-developed. Cardiovascular: Rate and Rhythm: Normal rate and regular rhythm. Pulmonary: Effort: Pulmonary effort is normal. Breath sounds: Normal breath sounds. Abdominal: General: Bowel sounds are normal. There is no distension. Palpations: Abdomen is soft. Tenderness: There is no abdominal tenderness. There is no guarding or rebound. Musculoskeletal: General: No swelling. Normal range of motion. Right lower leg: No edema. Left lower leg: No edema. Neurological: Mental Status: She is alert and oriented to person, place, and time. Skin: General: Skin is warm and dry. Psychiatric: Mood and Affect: Mood normal. Behavior: Behavior normal. Vitals and nursing note reviewed. Exam conducted with a tennis ball coverer hand present. Vitals: Estimated body mass index is 40.16 kg/m as calculated from the following: Height as of 08/25/23: 5' 7 . Weight as of this encounter: 256 lb 6.4 oz. BP: 120/78 Patient's last menstrual period was 02/02/2024 (exact date). ASSESSMENT & PLAN ICD-10-CM 1. 29 weeks gestation of Z3A.29 POCT urinalysis dipstick manually resulted 2. Third trimester Z34.93 POCT urinalysis dipstick manually resulted 3. Gastroesophageal reflux in O99.619 omeprazole (PriLOSEC) [address] capsule K21.9 Return OB: Patient presents today for a routine obstetrics appointment. Patient is currently 29w0d . Patient states she is doing well but has complaints of being tired due to current . Patient has verbalizes frequent movement. labor precautions was discussed/given and patient was instructed to perform kick counts three times a day. Pt has complaints of feet and legs swelling- advised to elevate after working. Rx for omeprazole faxed to pharmacy. Pt doing rhogam and glucose on Wednesday. Orders Placed This Encounter Procedures POCT urinalysis dipstick manually resulted Follow Up: Patient is to return to office in 2 week for routine OB appointment. Documented by Aleisha Abreu LPN on behalf of: Brain Way DO documented in this encounterUniversity Health Truman Medical [id number] History of Present illness Narrative* Aleisha Abreu LPN - 07/11/2024 10:10 AM EST Reason for Appointment: Patient ID: Tawnya Herring is a 29 y.o. female who presents for No chief complaint on file. Patient presents today for Return OB appointment. MEDICATIONS Current Outpatient Medications Medication Instructions ASPIRIN 81 PO 81 mg, Oral, Daily CeleXA 20 MG tablet Every 24 hours levothyroxine (SYNTHROID, LEVOXYL) 100 mcg, Oral, Daily magnesium oxide (MAG-OX) 400 mg, Oral, Daily MV-Min-Fe Fum-FA-DHA ( 1 PO) 1 each, Oral, Daily ALLERGIES No Known Allergies PROBLEMS Active Ambulatory Problems Diagnosis Date Noted No Active Ambulatory Problems Resolved Ambulatory Problems Diagnosis Date Noted No Resolved Ambulatory Problems Past Medical History: Diagnosis Date Anxiety Blood type, Rh positive H/O calculus of kidney during Tiffani's disease ([facility]) 02/2022 History of Obesity (BMI 30-39.9) Pericarditis HISTORY PAST MEDICAL HISTORY SOCIAL HISTORY Past Medical History: Diagnosis Date Anxiety Blood type, Rh positive H/O calculus of kidney during Tiffani's disease ([facility]) 02/2022 History of Obesity (BMI 30-39.9) Pericarditis Social History Tobacco Use Smoking status: Never Smokeless tobacco: Not on file Substance Use Topics Alcohol use: Never Drug use: Not on file FAMILY HISTORY Family History Problem Relation Name Age of Onset Hypertension Father SURGICAL HISTORY Past Surgical History: Procedure Laterality Date SECTION, LOW TRANSVERSE 20182020 CYSTOSCOPY REVIEW OF SYSTEMS Review of Systems: Review of Systems Constitutional: Negative. HENT: Negative. Eyes: Negative. Respiratory: Negative. Cardiovascular: Negative. Gastrointestinal: Positive for nausea. Genitourinary: Negative. Musculoskeletal: Negative. Skin: Negative. Neurological: Negative. All other systems reviewed and are negative. Hematological: Negative. Endocrine: Negative. Allergic/Immunologic: Negative. OBJECTIVE Objective: Physical Exam Constitutional: Appearance: Normal appearance. She is well-developed. Cardiovascular: Rate and Rhythm: Normal rate and regular rhythm. Pulmonary: Effort: Pulmonary effort is normal. Breath sounds: Normal breath sounds. Abdominal: General: Bowel sounds are normal. There is no distension. Palpations: Abdomen is soft. Tenderness: There is no abdominal tenderness. There is no guarding or rebound. Musculoskeletal: General: No swelling. Normal range of motion. Right lower leg: No edema. Left lower leg: No edema. Neurological: Mental Status: She is alert and oriented to person, place, and time. Skin: General: Skin is warm and dry. Psychiatric: Mood and Affect: Mood normal. Behavior: Behavior normal. Vitals and nursing note reviewed. Exam conducted with a tennis ball coverer hand present. Vitals: Estimated body mass index is 38.37 kg/m as calculated from the following: Height as of 08/25/23: 5' 7 . Weight as of 06/12/24: 245 lb. BP: Patient's last menstrual period was 02/02/2024 (exact date). ASSESSMENT & PLAN ICD-10-CM 1. 22 weeks gestation of Z3A.22 2. Second trimester Z34.92 3. Nausea and vomiting during O21.9 Patient presents today for a routine obstetrics appointment. Patient is currently 22w6d with a Estimated Date of Delivery: 11/08/24. Pt has complaints of nausea, Zofran not working well, rx for phenergan faxed to pharmacy. Pt given one hour glucose order to have obtained. Pt to return in 4 w eeks for scheduled OB appt. Documented by Aleisha Abreu LPN on behalf of: Brain Way DO documented in this encounterUniversity Health Truman Medical [id number] History of Present illness Narrative* Laura Herron CMA - 2024 2:15 PM EST Headache/epigastric pain/blurry vision/swelling? No Cramping/contractions? No Abnormal vaginal discharge? No Spotting/vaginal bleeding? No Loss or gush of fluid like your water may have broken? No Do you have cats at home? No Do you change the litter box (reason: risk of toxoplasmosis)? No Genetic testing done this here or other office? low risk male Have you been seen here at [facility] in a previous ? No Recent ER visits or hospitalizations? no Bring blood sugar log or meter with you today? (Please bring them with you for every visit at [facility]) n/a Flu vaccine (Jun-October)? Yes Any concerns that you would like me to mention to the provider today? No * Hayden Reilly MD - 2024 2:15 PM EST Images from the original note were not included. [facility] Consult Note Reason For Consult: Hypothyroidism HPI: Tawnya Herring is a 29 y.o. at 20w6d with Estimated Date of Delivery: 11/08/24 who presented for consultation from Brain Goodwin DO regarding Chief Complaint Patient presents with Tiffani's Thyroiditis I have reviewed the pertinent available patient records including but not limited to notes, labs and images She presents today with her . She reports that she is doing well. She reports normal movements and she denies leakage of fluid, contractions or vaginal bleeding. She denies fever, chills, nausea, vomiting, shortness of breath, chest pain, headache, blurry vision, right upper quadrant pain or edema. Complications: Hypothyroidism on Synthroid since January 2022. Synthroid 75 mcg. History of a section x2. Planning for repeat. They are considering vasectomy History of hypertension. The patient tells me that she had severe range blood pressures above 160/110 and she was started on labetalol did not receive magnesium sulfate per her report Obesity - on low-dose aspirin ? pericarditis - She thinks she may have had COVID with a month prior to delivery. a week afterwards she presented with chest pains where she was worked up for pulmonary embolismand had a CT chest that showed a pleural effusion. Also she was then evaluated by tuyere fitter who told her that she had pericarditis and that resolved with a taking Motrin however she did not had an echocardiogram. Saw Dr. Coronado. 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 FOB sister has history of learning disabilities they are not sure what the diagnosis is Denies family history of: Learning difficulties, congenital anomalies, DVT/VTE, early-onset cancer,early-onset cardiac disease or other inherited conditions Cell free DNA: low risk cell free DNA male fetus Denies smoking, alcohol or other substance use in Denies exposure to cat litter, farming animals, toxic exposure to chemical at work/environment Recent hospitalization: no Review of systems: Review of systems was noncontributory OB Hx: OB History Para Term AB Living 3 2 2 0 2 SAB IAB Ectopic Multiple Live Births 2 # Outcome Date GA Lbr Neto/2nd Weight Sex Type Anes PTL Lv 3 Current 2 Term 08/14/21 4.366 kg M CS-LTranv 1 Term 07/05/19 38w0d 4.848 kg M CS-LTranv N Complications: macrosomia during PMH: Past Medical History: Diagnosis Date Anxiety Tiffani's disease History of calculus of kidney during Obesity (BMI 30-39.9) Pericarditis PSHIST: Past Surgical History: Procedure Laterality Date SECTION low transverse CYSTOSCOPY Allergies: No Known Allergies Meds: Prior to Admission medications Medication Sig Start Date End Date Taking? Authorizing Provider aspirin 81 mg Take 1 tablet (81 mg total) by mouth in the morning. Yes Not In System Ref Prov magnesium oxide (MAGOX) 400 mg tablet Take 1 tablet (400 mg total) by mouth in the morning. Yes NotIn System Ref Prov [id number] acid ( 19) 29 mg iron- 1 mg tablet,chewable Chew 1 tablet and swallow in the morning. Yes Not In System Ref Prov SH: Social History Socioeconomic History Marital status: Spouse name: Not on file Number of children: Not on file Years of education: Not on file Highest education level: Not on file Occupational History Not on file Tobacco Use Smoking status: Never Smokeless tobacco: Never Substance and Sexual Activity Alcohol use: Not on file Drug use: Not on file Sexual activity: Not on file Other Topics Concern Not on file Social History Narrative Not on file Social Drivers of Health Financial Resource Strain: Not on file Food Insecurity: No Food Insecurity (2024) Hunger Screening Food Insecurity - Worry: Never True Food Insecurity - Inability: Never True Transportation Needs: Not on file Physical Activity: Not on file Stress: Not on file Social Connections: Not on file Interpersonal Safety: Not on file Housing Instability: Not on file Physical Exam: Vital Signs Vitals: 06/27/24 1318 06/27/24 1413 BP: 139/80 125/78 Pulse: 92 88 Height: 170.2 cm (5' 7 ) Physical Exam: Gen: Not in acute distress, alert and oriented. Eyes: Pupils equal and reactive Chest: Nonlabored breathing Cardiac: Pulse was regular on vital signs assessment Abdomen: Gravid Skin/extremities: Appears intact. No visible lesions MS:no visible edema Neuro: No focal deficits Notes/Imaging/Labs reviewed Ultrasound findings Pertinent Ultrasound findings are see report Assessment/Plan 29 y.o. @ at 20w6d with Estimated Date of Delivery: 11/08/24 here for consultation regardin. 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 In regards to her hypothyroidism, although profound hypothyroidism is associated with an increase in numerous complications including miscarriage, premature delivery, placental abrutpion, preeclampsia, growth restriction, and neuro psychological and cognitive impairments, these risks are quite avoidable with routine replacement to a euthyroid state. She should have regular screening over the balance of her (typically every 4-6 weeks) with adjustments in her medication dose to maintain a euthyroid state. Specifically you should attempt to maintain TSH values less than 2.5 mU/L.After delivery, the dose of the thyroxine should be reduced to pre- levels and TSH measured 6 to 8 weeks later. Tiffani thyroiditis (i.e. chronic lymphocytic thyroiditis) is an autoimmune disease that is the most common cause of hypothyroidism. Affects 8-10% of women of reproductive age. It is characterized by the presence of antithyroid antibodies. Patients may also have a goiter. Tites of anithyroglobulin are elevated in 50-70% of patients and almost all have antithyroid peroxidase antibodies. Medications such as aluminium hydroxide, cholestyramine, and most importantly ferrous sulfate can interfere with the intestinal absorption of thyroxine. Patient should be advised to space medicationsappropriately. 4. Hx of preeclampsia, prior , currently 5. Elevated BP without diagnosis of hypertension On 11/18/23 had BP 139/92 at endocrine visit Declines history of other elevated blood pressures outside I recommended that she starts checking her blood pressures Reviewed with the patient likely she had preeclampsia based on what she is telling me. She is on low-dose aspirin for preeclampsia prophylaxis. I discussed risk of recurrence for preeclampsia. I gave her education on signs and symptoms of preeclampsia. I reviewed with the patient that she has long-term risk for cardiovascular disease as well as hypertension. Discussed with the patient risks of preeclampsia to her and the fetus 6. History of pericarditis - Echo complete W/O contrast; Future It is unclear what she had. She was told there was a concern for pericarditis as she also had a viral infection at that time and she responded to ibuprofen. I also can not rule out cardiomyopathy due to her hypertension and timing of her symptoms and she had no echocardiogram. I reviewed with her that I would recommend she has a an echocardiogram. If it is normal I would recommend a repeat echocardiogram in the 3rd trimester around 32 weeks. There was also an incidental finding on the CT chest please see above - reviewed with the patient that I would recommend she establishes care with a lay out inspector for it to be further evaluated 7. with history of section, antepartum Risks of the section discussed desires a repeat 8. History of macrosomia in infant in prior , currently At risk of macrosomia again macrosomic can be associated with adverse outcomes such as hemorrhage and NICU admission. She should be screened for gestational diabetes. 9. Obesity affecting , antepartum, unspecified obesity type Adverse outcomes was obesity addressed. Candidate for Lovenox during hospital stay as a DVT prophylaxis from her provided she is hemodynamically stable 10. Depression affecting Approximately one in five women experiences an episode of major depressive disorder (MDD) over the course of her lifetime. Psychosocial and familial factors and medical history are related to the risk for depression after delivery. In particular, a personal history of depression, a family history of depression, and the lack of partner support increase the risk for depression. She denies any history of bipolar disorder, history of jesi, no suicidal or homicidal thoughts SSRIs are generally considered an option during , including citalopram (Celexa). Potentialcomplications include maternal weight changes and premature . Most studies show that SSRIs aren't associated with defects. However, paroxetine (Paxil) might be associated with a small increased risk of a heart defect and is generally discouraged during . Reviewed the risk of pulmonary hypertension in less than 08/999 fetus is exposed to SSRIs in . In addition we discussed withdrawal and reviewed with her that her baby might experience temporary signs and symptoms of discontinuation -- such as jitters, irritability, poor feeding and respiratory distress -- for up to a month after . Well designed studies on long-term neurodevelopmental outcomes are lacking. She vocalized understanding. She has low risk cell free DNA. We discussed further genetic testing during the includingamniocentesis and its risks and the family is not interested. There is a family history of learningdifficulties in the FOB sister they desire evaluation if indicated Recommendations: - Please refer her locally to see a lay out inspector for the incidental finding on the CT chest - Echocardiogram ordered today. The patient will need a repeat echo around 32 weeks - I asked her to start checking her blood pressure at home - Monitor thyroid function goal for TSH less than 2.5; increase her Synthroid accordingly if TSH not in goal. needs to go to the prepregnancy dose of the Synthroid and have her thyroid function rechecked around 6 weeks after delivery. To be done through primary OB office - Monitor for signs and symptoms of preeclampsia - Please obtain baseline preeclampsia labs to include CMP and protein creatinine ratio if not done - Continue low-dose aspirin 81 mg for preeclampsia prevention - The patient is scheduled for follow-up survey anatomy incomplete - Please screen the patient for diabetes 24- 28 weeks - Serial growth assessments every 4 weeks after the anatomy scan through primary OB office - testing to be initiated at 32 weeks weekly with twice weekly testing at 36 weeks and weekly DVP through primary OB office - Delivery recommended at 39 weeks, earlier as clinically indicated - Continue to monitor her moods Location of delivery pending echocardiogram Plan reviewed with patient. She vocalized understanding all questions answered. The patient is to continue with routine care in your office Thank you for allowing me to participate in her care. Please contact me if you have any concerns. Hayden Reilly MD, FACOG (she/hers) [facility] [address] [place] [address] This document was created with GERS technology. Though I make every effort to review the dictation as it is transcribed, on occasion the spoken word can be misinterpreted by the technology leading to inappropriate words, phrases, or sentences. This note is addressed to the requesting provider as a consultation for clinical guidance. Specificmedical abbreviations are occasionally used and those are generally approved by the [place]?Board of?Obstetrics and?Gynecology?as well as?Lauryn lund abbreviations. The above plan of care was based solely on the diagnoses for which a consultation was requested. ?More frequent testing may be indicated based on her other medical/obstetrical conditions. The management of other or medical conditions is beyond the scope of requested consultation and will c ontinue to be followed by the primary supervisor film processing or primary care provider. Note to patient: The Century Cures Act makes medical notes like these available to patients inthe interest of transparency. However, be advised this is a medical document. It is intended as peer to peer communication. It is written in medical language and may contain abbreviations or verbiagethat are unfamiliar. It may appear blunt or direct. Medical documents are intended to carry relevant information, facts as evident, and the clinical opinion of the practitioner. documented in this encounterAdams [facility]11[facility] Radiology Diagnostic study [facility] [place] [address] Ultrasound Report Signed Patient: Tawnya Herring MR#: [id number] : 1995 Acct:[id number] Age/Sex: 28 / F ADM Date: 4 Loc: Room: Type: [facility] Attending Dr: Brain Way DO Ordering Provider: Brain Way Date of Service: 06/22/24 US/US OB >= 14 weeks Fetus: Z36.89 Copies to: Brain Way~ OB ultrasound. Reason for exam:Anatomy and cervical length. Comparison:None Technique: Transabdominal imaging of the gravid uterus was obtained. Findings: Single live intrauterine measuring 20 weeks 1 day by anatomic measurements. Appropriate growth by dating per technologist's sheet. heart rate 144 bpm. presentation is vertex. Anterior location of the placenta is seen with a presumed placental golden noted. LIEN is normal at 14.42cm. Cervical length is 5.9 cm without evidence of funneling. survey demonstrates no definite congenital abnormality. Four-chamber heart is noted. The umbilical cord, brain and spine are suboptimally visualized. The following measurements were obtained: BPD 4.68 cm gestation: 20w2d weeks/days head circumference 16.78 cm gestation: 19w4d weeks/days abd. circumference 15.01 cm gestation: 20w2d weeks/days femur length 3.28 cm gestation: 20w2d weeks/days US/US OB >= 14 weeks Fetus Impression: Single live intrauterine measuring 20 weeks 1 day by CRL. Appropriategrowth by dating. Spine, brain and umbilical cord are suboptimally visualized. Repeat ultrasound in one to 2 weeks issuggested to complete the survey. No abnormalities seen on today's study. Normal LIEN. Normal cervical length. Impression dictated by: Zay Norton Jr., D.O.06/22/2024 4:00 PM Dictation Location: [place] [address] Tech: Rae De Paz Transcribed By: AGUILAR 06/22/24 1600 Dictated By: Zay Norton Jr, DO 06/22/24 1552 Signed By: 06/22/24 1600 [facility]10-28-2024 History of Present illness Narrative * HIPOLITO Shore - 06/12/2024 10:00 AM EDT Reason for Appointment: Patient ID: Tawnya Herring is a 28 y.o. female who presents for Routine Visit Patient presents today for Return OB appointment. MEDICATIONS Current Outpatient Medications Medication Instructions ASPIRIN 81 PO 81 mg, Oral, Daily CeleXA 20 MG tablet Every 24 hours levothyroxine (SYNTHROID, LEVOXYL) 75 mcg, Oral, Daily magnesium oxide (MAG-OX) 400 mg, Oral, Daily MV-Min-Fe Fum-FA-DHA ( 1 PO) 1 each, Oral, Daily ALLERGIES No Known Allergies PROBLEMS Active Ambulatory Problems Diagnosis Date Noted No Active Ambulatory Problems Resolved Ambulatory Problems Diagnosis Date Noted No Resolved Ambulatory Problems Past Medical History: Diagnosis Date Anxiety Blood type, Rh positive H/O calculus of kidney during Tiffani's disease ([facility]) 02/2022 History of Obesity (BMI 30-39.9) Pericarditis HISTORY PAST MEDICAL HISTORY SOCIAL HISTORY Past Medical History: Diagnosis Date Anxiety Blood type, Rh positive H/O calculus of kidney during Tiffani's disease (CMS/HCC) 02/2022 History of Obesity (BMI 30-39.9) Pericarditis Social History Tobacco Use Smoking status: Never Smokeless tobacco: Not on file Substance Use Topics Alcohol use: Never Drug use: Not on file FAMILY HISTORY Family History Problem Relation Name Age of Onset Hypertension Father SURGICAL HISTORY Past Surgical History: Procedure Laterality Date SECTION, LOW TRANSVERSE 2020 CYSTOSCOPY REVIEW OF SYSTEMS Review of Systems: Review of Systems Constitutional: Negative. HENT: Negative. Eyes: Negative. Respiratory: Negative. Cardiovascular: Negative. Gastrointestinal: Negative. Genitourinary: Negative. Musculoskeletal: Negative. Skin: Negative. Neurological: Negative. All other systems reviewed and are negative. Hematological: Negative. Endocrine: Negative. Allergic/Immunologic: Negative. OBJECTIVE Objective: Physical Exam Constitutional: Appearance: Normal appearance. She is normal weight. HENT: Head: Normocephalic. Cardiovascular: Rate and Rhythm: Normal rate. Pulses: Normal pulses. Pulmonary: Effort: Pulmonary effort is normal. Breath sounds: Normal breath sounds. Abdominal: Palpations: Abdomen is soft. Musculoskeletal: General: Normal range of motion. Neurological: General: No focal deficit present. Mental Status: She is alert and oriented to person, place, and time. Psychiatric: Mood and Affect: Mood normal. Behavior: Behavior normal. Thought Content: Thought content normal. Judgment: Judgment normal. Vitals and nursing note reviewed. Vitals: Estimated body mass index is 38.37 kg/m as calculated from the following: Height as of 08/25/23: 5' 7 . Weight as of this encounter: 245 lb. BP: 122/80 Patient's last menstrual period was 02/02/2024 (exact date). ASSESSMENT & PLAN ICD-10-CM 1. Second trimester Z34.92 POCT urinalysis dipstick manually resulted Alpha fetoprotein, maternal Alpha fetoprotein, maternal 2. 18 weeks gestation of Z3A.18 POCT urinalysis dipstick manually resulted Alpha fetoprotein, maternal Alpha fetoprotein, maternal 3. Screening, , for anatomic survey Z36.89 US OB ANATOMY SINGLE W US OB CERVICAL LENGTH Return OB: Patient presents today for a routine obstetrics appointment. Patient is currently 18w5d . Patient states she is doing well but has complaints of being tired due to current . Patient has verbalizes frequent movement. Orders Placed This Encounter Procedures US OB ANATOMY SINGLE W US OB CERVICAL LENGTH Alpha fetoprotein, maternal POCT urinalysis dipstick manually resulted Patient has history or hashimotos with pericarditis post last . We will send m referral Follow Up: Patient is to return to office in 4 week for routine OB appointment. Documented by HIPOLITO Shore on behalf of: Brain Way DO documented in this encounterUniversity Health Truman Medical [id number] Evaluation note* Diagnosis Onset Date Resolution Status Admit Date Well adult exam noneactive May 11, 2024 10:46am [facility] Work Phone: [phone]) 206-139309-25-2024 History of Present illness Narrative* Aleisha Abreu LPN - 05/10/2024 1:50 PM EDT Reason for Appointment: Patient ID: Tawnya Herring is a 28 y.o. female who presents for Routine Visit Patient presents today for Return OB appointment. MEDICATIONS Current Outpatient Medications Medication Instructions ASPIRIN 81 PO 81 mg, Oral, Daily CeleXA 20 MG tablet Every 24 hours levothyroxine (SYNTHROID, LEVOXYL) 75 mcg, Oral, Daily MV-Min-Fe Fum-FA-DHA ( 1 PO) 1 each, Oral, Daily ALLERGIES No Known Allergies PROBLEMS Active Ambulatory Problems Diagnosis Date Noted No Active Ambulatory Problems Resolved Ambulatory Problems Diagnosis Date Noted No Resolved Ambulatory Problems Past Medical History: Diagnosis Date Anxiety Blood type, Rh positive H/O calculus of kidney during Tiffani's disease ([facility]) 02/2022 History of Obesity (BMI 30-39.9) Pericarditis HISTORY PAST MEDICAL HISTORY SOCIAL HISTORY Past Medical History: Diagnosis Date Anxiety Blood type, Rh positive H/O calculus of kidney during Tiffani's disease ([facility]) 02/2022 History of Obesity (BMI 30-39.9) Pericarditis Social History Tobacco Use Smoking status: Never Smokeless tobacco: Not on file Substance Use Topics Alcohol use: Never Drug use: Not on file FAMILY HISTORY Family History Problem Relation Name Age of Onset Hypertension Father SURGICAL HISTORY Past Surgical History: Procedure Laterality Date SECTION, LOW TRANSVERSE 2020 CYSTOSCOPY REVIEW OF SYSTEMS Review of Systems: Review of Systems Constitutional: Negative. HENT: Negative. Eyes: Negative. Respiratory: Negative. Cardiovascular: Negative. Gastrointestinal: Negative. Genitourinary: Negative. Musculoskeletal: Negative. Skin: Negative. Neurological: Negative. All other systems reviewed and are negative. Hematological: Negative. Endocrine: Negative. Allergic/Immunologic: Negative. OBJECTIVE Objective: Physical Exam Constitutional: Appearance: Normal appearance. She is well-developed. Cardiovascular: Rate and Rhythm: Normal rate and regular rhythm. Pulmonary: Effort: Pulmonary effort is normal. Breath sounds: Normal breath sounds. Abdominal: General: Bowel sounds are normal. There is no distension. Palpations: Abdomen is soft. Tenderness: There is no abdominal tenderness. There is no guarding or rebound. Musculoskeletal: General: No swelling. Normal range of motion. Right lower leg: No edema. Left lower leg: No edema. Neurological: Mental Status: She is alert and oriented to person, place, and time. Skin: General: Skin is warm and dry. Psychiatric: Mood and Affect: Mood normal. Behavior: Behavior normal. Vitals and nursing note reviewed. Exam conducted with a tennis ball coverer hand present. Vitals: Estimated body mass index is 38.39 kg/m as calculated from the following: Height as of 08/25/23: 5' 7 . Weight as of this encounter: 245 lb 1.9 oz. BP: 120/76 Patient's last menstrual period was 02/02/2024 (exact date). ASSESSMENT & PLAN ICD-10-CM 1. Second trimester Z34.92 POCT urinalysis dipstick manually resulted Patient presents today for a routine obstetrics appointment. Patient is currently 14w0d with a Estimated Date of Delivery: 11/08/24. Reviewed labs with pt in detail. Pt to return in 4 weeks for scheduled OB appt. Documented by Aleisha Abreu LPN on behalf of: Brain Way DO documented in this encounterUniversity Health Truman Medical [id number] History of Present illness Narrative* Coral Rg LPN - 04/20/2024 10:00 AM EDT Reason for Appointment: Patient ID: Tawnya Herring is a 28 y.o. female who presents for Routine Visit Patient presents today for Annual Exam. and Return OB appointment. MEDICATIONS Current Outpatient Medications Medication Instructions CeleXA 20 MG tablet Every 24 hours levothyroxine (SYNTHROID, LEVOXYL) 75 mcg, Oral, Daily ondansetron ODT (ZOFRAN-ODT) 4 mg, Oral, Every 6 hours PRN MV-Min-Fe Fum-FA-DHA ( 1 PO) 1 each, Oral, Daily ALLERGIES No Known Allergies PROBLEMS Active Ambulatory Problems Diagnosis Date Noted No Active Ambulatory Problems Resolved Ambulatory Problems Diagnosis Date Noted No Resolved Ambulatory Problems Past Medical History: Diagnosis Date Anxiety Blood type, Rh positive H/O calculus of kidney during Tiffani's disease ([facility]) 02/2022 History of Obesity (BMI 30-39.9) Pericarditis HISTORY PAST MEDICAL HISTORY SOCIAL HISTORY Past Medical History: Diagnosis Date Anxiety Blood type, Rh positive H/O calculus of kidney during Tiffani's disease ([facility]) 02/2022 History of Obesity (BMI 30-39.9) Pericarditis Social History Tobacco Use Smoking status: Never Smokeless tobacco: Not on file Substance Use Topics Alcohol use: Never Drug use: Not on file FAMILY HISTORY Family History Problem Relation Name Age of Onset Hypertension Father SURGICAL HISTORY Past Surgical History: Procedure Laterality Date SECTION, LOW TRANSVERSE 2018, 2020 CYSTOSCOPY REVIEW OF SYSTEMS Review of Systems: Review of Systems All other systems reviewed and are negative. OBJECTIVE Objective: Physical Exam Constitutional: Appearance: Normal appearance. She is well-developed. Genitourinary: Vulva normal. Breasts: Breasts are soft. Right: Normal. Left: Normal. Cardiovascular: Rate and Rhythm: Normal rate and regular rhythm. Pulmonary: Effort: Pulmonary effort is normal. Breath sounds: Normal breath sounds. Abdominal: General: Bowel sounds are normal. There is no distension. Palpations: Abdomen is soft. Tenderness: There is no abdominal tenderness. There is no guarding or rebound. Musculoskeletal: General: No swelling. Normal range of motion. Right lower leg: No edema. Left lower leg: No edema. Neurological: Mental Status: She is alert and oriented to person, place, and time. Skin: General: Skin is warm and dry. Psychiatric: Mood and Affect: Mood normal. Behavior: Behavior normal. Vitals and nursing note reviewed. Exam conducted with a tennis ball coverer hand present. Vitals: Estimated body mass index is 38.53 kg/m as calculated from the following: Height as of 08/25/23: 5' 7 . Weight as of this encounter: 246 lb. BP: 122/76 Patient's last menstrual period was 02/02/2024 (exact date). ASSESSMENT & PLAN ICD-10-CM 1. First trimester Z34.91 POCT urinalysis dipstick manually resulted SURESWAB(R) ADVANCED VAGINITIS PLUS, TMA CHLAMYDIA TRACHOMATIS (GENITO/STI) Neisseria gonorrhea DNA probe, direct 2. Well woman exam with routine gynecological exam Z01.419 Pap Smear 3. Screen for STD (sexually transmitted disease) Z11.3 SURESWAB(R) ADVANCED VAGINITIS PLUS, TMA CHLAMYDIA TRACHOMATIS (GENITO/STI) Neisseria gonorrhea DNA probe, direct 4. Vaginal discharge N89.8 SURESWAB(R) ADVANCED VAGINITIS PLUS, TMA CHLAMYDIA TRACHOMATIS (GENITO/STI) Neisseria gonorrhea DNA probe, direct Return OB/Annual Exam: Patient presents today for an annual exam/routine obstetrics appointment. Patient is currently 11w1d . Patient is doing well and states she has no complaints. Pap/cultures was obtained without difficulty and patient was given RUSTFP order to have obtained. Patient advised to take ASA 81mg. Orders Placed This Encounter Procedures CHLAMYDIA TRACHOMATIS (GENITO/STI) Neisseria gonorrhea DNA probe, direct POCT urinalysis dipstick manually resulted Follow Up: Patient is to return to our office in 4 weeks for routine OB appointment Documented by Coral Rg LPN on behalf of: Brain Way DO documented in this encounterUniversity Health Truman Medical [id number] History of Present illness Narrative* Thelma Elizabeth LPN - 04/07/2024 9:30 AM EDT Reason for Appointment: Patient ID: Tawnya Herring is a 28 y.o. female who presents for Amenorrhea Patient presents today for a Nurse OB Intake appointment. Patient is 9w2d with a Estimated Date of Delivery: 11/08/24 OB History Para Term AB Living 3 2 1 2 SAB IAB Ectopic Multiple Live Births # Outcome Date GA Lbr Neto/2nd Weight Sex Type Anes PTL Lv 3 Current 2 Para 08/14/21 9 lb 10 oz M CS-LTranv 1 07/05/19 33w3d 10 lb 11 oz M CS-LTranv Complications: macrosomia during Current Medications: has a current medication list which includes the following prescription(s): celexa, levothyroxine, ondansetron odt, and mv-min-fe fum-fa-dha. 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 Weight as of this encounter: 248 lb 1.9 oz. BP: 120/70 Patient's last menstrual period was 02/02/2024 (exact date). Assessment/Plan Diagnoses and all orders for this visit: Missed menses - Type and screen; Future - ABO/Rh; Future - CBC and differential - Hemoglobin A1c - RPR - Rubella antibody, IgG - Hepatitis B surface antigen - Hepatitis C antibody - HIV-1 and HIV-2 antibodies - Urine culture - POCT , urine manually resulted - POCT urinalysis dipstick manually resulted - TSH Nurse Note: OB Intake: Patient presents today for first OB visit. Patients history has been reviewed in great detail including any potential risks. Patient signed consent forms and patient desires testing in both trimesters. Patient currently has no complaints and has been advised to drink 6-8 glasses of water a day, eatno raw or undercooked meat, and stay away from [facility]. Patient has also been advised to not change litter boxes and eat 6 small meals a day. Patient has been consulted regarding the do's and don'ts ofpregnancy. Patient was given labs and all questions and concerns were answered. Follow Up: Patient is to return in 4 weeks for routine OB appointment. Follow Up: Patient is to have labs drawn at directed and return to office for initial OB appointment with provider. Patient may call office as needed with any concerns or questions. Nurse Visit Completed by: Thelma Elizabeth LPN documented in this encounterUniversity Health Truman Medical [id number] Hospital Discharge instructions Patient Education 03/18/2024 12:15:03 Threatened Miscarriage [...] body, such as thyroid disease or polycystic ovarysyndrome. Diabetes. Autoimmune disorders. Infections. Bleeding disorders. Obesity. [...] This may include radiation or heavy metals, suchas lead. Using certain medicines. What are the [...] provider. Document Revised: 01/31/2021 Document Reviewed: 01/31/2021 [employer] Patient Education 2022 [employer] 03/18/2024 12:15:03 Subchorionic Hematoma Subchorionic Hematoma A hematoma is a collection of blood outside of the blood vessels. A subchorionic hematoma is a collection of blood between the outer wall of the embryo (chorion) and the inner wall of the uterus. This condition can cause vaginal bleeding. Early small hematomas usually shrink on their own and donot affect your baby or . When bleeding [...] the outer wall of the embryo (chorion) andthe inner wall of the uterus. This condition [...] provider. Document Revised: 04/28/2021 Document Reviewed: 04/28/2021 [employer] Patient Education 2022 [employer]. Follow Up Care 03/18/2024 08:08:01 With:Rogelio Nath Address: [address], [facility] [address] [place] [address]- Business (1) When:03/21/2024 11:54:39 With:DARWIN JONES Address: [address] [facility] [place] [phone] Business (1) When:Within 3 Day(s) [facility] 08-03-2024 NoteED Patient Education Note Obstetrics and Gynecology Threatened [...] provider. Document Revised: 01/31/2021 Document Reviewed: 01/31/2021 [employer] Patient Education ? 2022 [employer] Inc[employer] Subchorionic Hematoma A hematoma is a collection of blood outside of the blood vessels. A subchorionic hematoma is a collection of blood between the outer wall of the embryo (chorion) and the inner wall of the uterus. This condi (more content not included)...[facility]04-04-2024 NoteHNO ID: [id number] Author: RUBY WHITTINGTON MD Service: ? Author [...] RTN 1 year. Ruby Whittington MD [facility]ocrin[facility] StaffFort [facility] Hospital04-04-[facility] History of Present illness Narrative* Ruby Whittington MD - 11/18/2023 8:18 AM EDT Images from the original note were not [...] Whittington MD Endocrinology Staff documented in this encounterCleveland [id number] Instructions* Patient Instructions* Odalis Greene - 11/18/2023 7:58 AM EDT Thank you for choosing the [facility] Department of Endocrinology, Diabetes and Metabolism. Did you know that you need to call 48 hours in advance of your scheduled visit, if you are unable to make your appointment? The Endocrinology and Metabolism [place] thanks you for your commitment, because patients not showing to their appointment results in a lost opportunity for patients to receive [facility] at the [facility]. To Cancel an appointment, please choose one of the following: - Call the Appointment Call Center at [phone] - From [employer], Go to Appointments - Cancel Appts If cancelling, consider your need to reschedule to prevent further delays in your care. To Schedule an appointment, please choose one of the following: - Call the Appointment Call Center at [phone] - From [employer], Go to Appointments - Request an Appt documented in this encounterMount Carmel Health System02-14-2024 Hospital Discharge instructions Patient Education 09/29/2023 11:05:01 BMI for Adults BMI for Adults What is BMI? Body mass index (BMI) is a number that is calculated from a person's weight and height. BMI can help estimate how much of a person's weight is composed of fat. BMI does not measure body fat directly.Rather, it is an alternative to procedures that [...] your height. Both height and weight are measured,and the BMI is calculated from those numbers. This can be done either in Spanish ([place] or metric measurements. Note that charts and online BMI calculators are available to help you find your BMI quickly and easily without having to do these calculations yourself. To calculate your BMI in Spanish ([place].S[place] measurements: 1.Measure your weight in pounds [...] inches squared measurement is 70 inches x 70inches, which equals 4,900 inches squared. 4.Divide the [...] muscular build, such as an athlete, may havea BMI that is higher than 24.9. In cases like these, BMI is not an accurate measure of body fat. To determine if excess body fat is the cause of a BMI of 25 or higher, further assessments may needto be done by a health care provider. BMI is usually interpreted in the same way for men and women. Where to find more information For more information about BMI, including tools to quickly calculate your BMI, go to these websites: Centers for Disease Control and Prevention: www.cdc.gov [place] [employer]: www.heart.org National Heart, Lung, and Blood [place]: www.nhlbi.nih.gov Summary Body mass index (BMI) is a number that is calculated from a person's weight and height. BMI may help estimate how much of a person's weight is composed of fat. BMI can help identify thosewho may be at higher risk for certain medical problems. BMI can be measured using Spanish measurements or metric measurements. BMI charts are used to identify whether you are underweight, normal weight, overweight, or obese. This information is not intended to replace advice given to you by your health care provider. Make sure you discuss any questions you have with your health care provider. Document Revised: 04/24/2020 Document Reviewed: 03/01/2020 [employer] Patient Education 2022 [employer]. 09/29/2023 11:04:59 Sinus Infection, Adult Sinus Infection, [...] a feeling of pressure around the affected sinuses.Other symptoms include: Stuffy nose or congestion that [...] saline washes). ?Medicines that treat allergies (antihistamines). ?Ylpo-tnv-rawktug pain relievers. If caused by bacteria, your [...] at home: Medicines Take, use, or apply cdjw-rms-sudezyl and prescription medicines only as told by your health care provider. These may include nasal sprays. If you were prescribed an antibiotic medicine, take it as told by your health care provider. Do notstop taking the antibiotic even if you start [...] or as told by your health care provider.This will help with discomfort. Use nasal saline washes as often as told by your health care provider. Wash your hands often with soap and water to reduce your exposure to germs. If soap and water are not available, use hand motor analyst. Do not smoke. Avoid being around people [...] told by your health care provider. Do notstop taking the antibiotic even if you start to feel better. Keep all follow-up visits. This is important. This information is not intended to replace advice given to you by your health care provider. Make sure you discuss any questions you have with your health care provider. Document Revised: 07/07/2022 Document Reviewed: 07/07/2022 [employer] Patient Education 2022 [employer]. Follow Up Care 09/29/2023 09:12:00 With:DARWIN JONES CNP Address: [facility] [place] [address]- When: Unknown [facility] 02-06-2024 Evaluation note* Encounter Date Diagnosis Assessment Notes Treatment Notes Treatment Clinical Notes Sep, Obesity, unspecified (ICD-10 - E66.9) [...] BMI is required on scripts in the [facility]. Sep, Other *Progress note was completed with the assistance of voice recognition software for dictation purposes. Please excuse any grammatical errors that were not corrected during review process. [employer] Other 01-10-2024 Evaluation note* Encounter Date Diagnosis [...] that were not corrected during review process. [employer] Other 12-01-2023 Miscellaneous Notes* Telephone Encounter - Kenan Gomez - 07/16/2023 9:39 AM EST LVM to let patient know their appt has been rescheduled with Dr. Whittington. documented in this encounterMount Carmel Health System11-08-2023 Evaluation note* Encounter Date Diagnosis Assessment Notes [...] comfortable prescribing this medication at this time. [employer] Other 10-24-2023 NoteHNO ID: [id number] Author: Francy Gan PA-C Service: ? Author Type: Physician Bisque Kiln Drawer Type: Progress Notes Filed: 06/08/2023 2:53 PM [...] will be in touch with results via [employer] HPI: Tawnya is a 27 year old [...] testing/treatment Medical Decision Making Level: 3 - [facility] History of Present illness Narrative* Francy [...] will be in touch with results via MyChart HPI: Tawnya is a 27 year old [...] Level: 3 - Low documented in this [facility]10-24-2023 Instructions* Patient Instructions* Francy Gan PA-C - 06/08/2023 2:16 PM EDT Continue the omeprazole for another 1.5 months documented in this [facility]10-11-2023 Evaluation note* Encounter Date Diagnosis Assessment [...] that were not corrected during review process. [employer] Other 09-13-2023 Evaluation note* Encounter Date Diagnosis [...] Discussed short term 8 week course vs. termite exterminator management. Discussed pros and cons of taking [...] that were not corrected during review process. [employer] Other 09-01-2023 Evaluation note* Encounter Date Diagnosis [...] patient is sent home pleased, without concerns. PILLAR FROM A COMPELTED IN OFFICE TODAY, SCANNED INTO PATIENT CHART AND FAXED TO [employer]. Apr, Other We did briefly discussed the [...] that were not corrected during review process. [employer] Other 08-08-2023 Hospital Discharge instructions Patient Education 03/22/2023 22:52:44 Urinary Tract Infection, Adult, Rmzm-fd-Phwj Urinary Tract Infection, Adult A urinary tract [...] Follow these instructions at home: Medicines Take pcsc-hcr-rkrbzuh and prescription medicines only as told by [...] provider. Document Revised: 03/14/2021 Document Reviewed: 03/14/2021 [employer] Patient Education 2022 [employer]. Follow Up Care 03/22/2023 19:54:03 [facility] Address: [address] [place] [phone] [phone] Business (1) When:03/25/2023 Comments:Follow-up with your primary care provider in 3 to 5 days. If symptoms worsen, do not improve, or new symptoms arise please report back to emergency department for further evaluation. [facility]08-07-2023 Evaluation + Plan note Diagnostic Tests Pending * Urine Culture 03/22/23 [facility]03-02-2023 Evaluation note* Encounter Date Diagnosis Assessment Notes Treatment Notes Treatment Clinical Notes Oct, Nausea & vomiting (ICD-10 - R11.2) [employer] Other 02-20-2023 Evaluation note* Encounter Date Diagnosis [...] Encounter for weight management (ICD-10 - Z76.89) [facility] Other 02-13-2023 Miscellaneous Notes* Addendum Note - [...] Take 1 tablet by mouth once daily. Rbuy Whittington MD documented in this encounterMount Carmel Health System01-18-2023 Evaluation note* Encounter Date Diagnosis Assessment Notes [...] Encounter for weight management (ICD-10 - Z76.89) [employer] Other 01-10-2023 Evaluation note* Encounter Date Diagnosis [...] as inspiration Patient set the following goals: [employer] Other 12-16-2022 Evaluation note* Encounter Date Diagnosis [...] E06.3) She was recently seen by an combat engineer at [facility] for elevated TSH. She is currently on adequate supplementation and will follow up with them. Jul, Daytime sleepiness (ICD-10 - R40.0) Continue to work on good sleep hygiene and control factors that she can.This could also improve with additional water intake. Jul, Mild depression (ICD-10 - F32.9) Jul, Encounter for weight management (ICD-10 - Z76.89) [facility] Other 11-29-2022 History of Present illness Narrative* [...] Endocrinology Staff CC: Darwin Jones APRN, CNP. [address] [place] [id number] documented in this encounterMount Carmel Health System11-29-2022 Instructions* Patient Instructions* Soo Begum Ma - 07/14/2022 8:46 AM EST Thank you for choosing the [facility] Department of Endocrinology, Diabetes and Metabolism. Did you know that you need to call 48 hours in advance of your scheduled visit, if you are unable to make your appointment? The Endocrinology and Metabolism [place] thanks you for your commitment, because patients not showing to their appointment results in a lost opportunity for patients to receive [facility] at the [facility]. To Cancel an appointment, please choose one of the following: - Call the Appointment Call Center at [phone] - From [employer], Go to Appointments - Cancel Appts If cancelling, consider your need to reschedule to prevent further delays in your care. To Schedule an appointment, please choose one of the following: - Call the Appointment Call Center at [phone] - From [employer], Go to Appointments - Request an Appt documented in this encounterMount Carmel Health System11-02-2022 Evaluation note* Encounter Date Diagnosis Assessment Notes [...] samples and titrate her up slowly until [facility] insurance kicks in in August. We [...] will discuss at later date if needed. [employer] Other 10-20-2022 Evaluation note* Encounter Date Diagnosis [...] Pt understood and agreed to tx plan. [facility] Other 10-12-2022 Evaluation note* Encounter Date Diagnosis [...] patient set personal goal using given handout. [facility] Other 10-10-2022 Miscellaneous Notes* Telephone Encounter - Linn Hancock - 05/25/2022 2:35 PM EDT LVM for patient that appt on 05/[address] George has been rescheduled to 07/08 at [facility] with Dr. Robertson. sending mail reminder as well. 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 Her Mallampati is not [...] of a comprehensive approach to obesity management [facility] Other 09-02-2022 Evaluation note* Encounter Date Diagnosis [...] to start the weight management program at [facility] in the coming months.Nothing further needed [...] that were not corrected during review process. [facility] Other 07-07-2022 Hospital Discharge instructions Patient Education [...] Follow these instructions at home: Medicines Take kzqr-ict-dmhxfem and prescription medicines only as told by [...] 04/27/2002 Document Revised: 08/05/2018 Document Reviewed: 05/14/2017 [employer] Patient Education 2020 [employer]. 02/18/2022 22:49:49 Migraine Headache Migraine Headache A [...] Follow these instructions at home: Medicines Take bwhh-kuh-yibyats and prescription medicines only as told by your health care provider. Ask your health care provider if the medicine prescribed to you: ?Requires you to avoid driving or using heavy machinery. ?Can cause constipation. You may need to take these actions to prevent or treat constipation: ?Drink enough fluid to keep your urine pale yellow. ?Take pzvn-ufk-ycfkkdn or prescription medicines. ?Eat foods that are [...] 08/02/2006 Document Revised: 11/24/2019 Document Reviewed: 09/14/2019 [employer] Patient Education 2020 [employer] Inc. Follow Up Care 02/18/2022 20:32:17 With:DARWIN JONES Address: [address] [place] [phone] Business (1) When:Within 3 Day(s) [facility]07-06-2022 Evaluation + Plan noteExtracted from: Title:ED [...] voices understanding and is agreeable to plan. [facility]07-06-2022 Evaluation note* Encounter Date Diagnosis Assessment [...] and remind her of lab draw at [facility]. Feb, Thyromegaly (ICD-10 - E01.0) Discussed [...] that were not corrected during review process. [facility] Other 07-01-2022 History general Narrative - Reported* Type Description Date Medical History Anxiety Medical History pericardi tis- Resolved cardiology signed off Medical History Kidney stones during Medical History Tiffani's disease February 2022 Medical History Abnormal thyroid ult rasound February 2022 work-up pending by ENT Surgical History 2018 Surgical History Cystoscopy 05/2021 Surgical History 2020 Hospitalization History See surgical hx [facility] Other 07-01-2022 History general Narrative - Reported* Type Description Date Medical History Anxiety Medical History pericardi tis- Resolved cardiology signed off Medical History Kidney stones during Medical History Tiffani's disease February 2022 Medical History Abnormal thyroid ult rasound February 2022 work-up pending by ENT Medical History Parathyroid adenoma Surgical History 2018 Surgical History Cystoscopy 05/2021 Surgical History 2020 Hospitalization History See surgical hx [facility] Other 06-29-2022 Evaluation note* Encounter Date Diagnosis [...] that were not corrected during review process. [facility] Other 06-01-2022 History general Narrative - Reported* Type Description Date Medical History Anxiety Medical History pericardi tis- Resolved cardiology signed off Medical History Kidney stones during Medical History Elevated TSH January 2022 Surgical History 2018 Surgical History Cystoscopy 05/2021 Surgical History 2020 Hospitalization History See surgical hx [facility] Other Evaluation noteNo assessment information available 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 documented in this encounter [facility]* Diagnosis Dysphagia, unspecified type- Primary LPRD (laryngopharyngeal reflux disease) Other diseases of larynx documented in this encounter [facility] SystemEvalun[facility] foundation note* Diagnosis Onset Date Resolution Status Obesity [facility] Work Phone: Evaluation note* Diagnosis 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 Irregular menstruation, unspecified Female infertility Female infertility of unspecified origin Calculus of kidney documented in this encounter [facility] SystemEvalun[facility] note* Diagnosis Onset Date Resolution Status Obesity acute Class 2 obesity with body ma ss index (BMI) of 37.0 to 37.9 in adult [facility] Work Phone: Evaluation note* Diagnosis Onset Date Resolution Status Obesity acute Class 2 obesity with body ma ss index (BMI) of 37.0 to 37.9 in adult acute Class 2 obesity with body ma ss index (BMI) of 37.0 to 37.9 in adult acute [facility] Work Phone: evaluation note* Diagnosis Onset Date Resolution Status Class 2 obesity with body ma ss index (BMI) of 37.0 to 37.9 in adult acute Class 2 obesity with body ma ss index (BMI) of 37.0 to 37.9 in adult acute [facility] Work Phone: evaluation note* Diagnosis Onset Date Resolution Status Class 2 obesity with body ma ss index (BMI) of 37.0 to 37.9 in adult acute [facility] Work Phone: evaluation note* Diagnosis Onset Date Resolution Status Well adult exam noneactive [facility] Work Phone: evaluation note* Diagnosis Second trimester state, incidental 18 weeks gestation of Screening, , for anatomic survey Encounter for anatomic survey documented [facility]* Diagnosis 20 weeks gestation of - Primary Tiffani's disease Chronic lymphocytic thyroiditis 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 Hx of preeclampsia, prior , currently with other poor obstetric history Elevated BP without diagnosis of hypertension History of pericarditis with history of section, antepartum History of macrosomia in in prior , currently with other poor obstetric history Obesity affecting , antepartum, unspecified obesity type Depression affecting [facility]* Diagnosis 22 weeks gestation of Second trimester state, incidental Nausea and vomiting during Diabetes mellitus screening Screening for diabetes mellitus documented [facility]* Diagnosis History of pericarditis- Primary Mild concentric left ventricular hypertrophy (LVH) 25 weeks gestation of [facility]* Diagnosis Missed menses documented [facility]* Diagnosis First trimester state, incidental Well woman exam with routine gynecological exam Routine gynecological examination Screen for STD (sexually transmitted disease) Screening examination for venereal disease Vaginal discharge Leukorrhea, not specified as infective documented [facility]* Diagnosis Second trimester state, incidental documented [facility]* Diagnosis 29 weeks gestation of Third trimester state, incidental Gastroesophageal reflux in documented [facility]* Diagnosis Third trimester state, incidental 31 weeks gestation of size inconsistent with dates documented in this encounter [facility] Narrative - Reported* Type Description Date [...] Surgical History 2020 Hospitalization History See surgical [facility] Other Hisngvz general Narrative - Reported* Type Description Date [...] Surgical History 2020 Hospitalization History See surgical [facility] Other Hisftjn general Narrative - Reported* Type Description Date [...] Surgical History 2020 Hospitalization History See surgical [facility] Other History of Present illness Narrative* Patient [...] no other testing or intervention appears necessary. [facility] Bloomed DO Work Phone: Hospital course Narrative No data available for this section [facility] HospitalInstructionsNot on filedocumented in this encounter [facility]Inst[facility]* Attachments The following attachments cannot be sent through Care Everywhere. * Preeclampsia (Spanish) documented in this encounterHol[facility] SystemInstructionsNot on file documented in this encounterAdams County Regional Medical CenterProgress note No data available for this section [facility] HospitalReason for referral (narrative)* Reason Dr. 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) Referral Organization [facility] Referring Provider First Name Darwin Referring Provider Last Name [facility] Referring Provider Specialty Nurse Pract christine Referred Provider Specialty Endocrinolog y Referral Priority Routine [facility] Other Reason for referral (narrative)* Diagnostic Procedure Only (Routine) - Pending Review Specialty Diagnoses / Procedures Referred By Contmatthew t Referred To Contact XR IMAGING Diagnoses Dysphagia, unspecified type Procedures XR MODIFIED BARIUM SWALLOW W SPEECH THERAPY RADIOLOGIC EXAM SWALLOW FUNCTION CONTRAST STUDY Francy Gan PA-C [address] [place] [address] [place] [id number] Referral ID Status Reason Start Date Expiration Date Visits Requested Visits Authorized [id number] Pending Review Auto-Generat ed Referral 3 07/07/2024 1 1 [facility] Chief Complaint TAWNYA HERRING is being seen for follow-up of a hospitalization for. Family History No Family History Records FoundUnknown Family Member Name Dates Details No pertinent family history: Mother, Father, Sibling(V49.89, Z78.9) Status:Active Unknown Family Member Name Dates Details No pertinent family history: Mother, Father, Sibling(V49.89, Z78.9) Status:Active Relationship Condition Age at Onset Recorded Date/T tova father Hypertension Unknown Relationship Condition Age at Onset Recorded Date/T tova father Hypertension Unknown grandparent Hypothyroidism Unknown Summary Purpose Advance Directives No Advanced [...] 37.0 to 37.9 in adult Chief Complaint N97.0 pillars pillar Chief Complaint pillars pillar Z86.39 Reason for Visit Well adult exam Chief Complaint Admit Date pillars April 06, 2024 8: 24am pillar May 11, 2024 10:46am Z86.39 May 24, 2024 8: 38am z36.89 June 22, 2024 1 2:51pm Reason for Visit Admit Date Well adult exam May 11, 2024 10:46am Chief Complaint Admit Date pillars April 06, 2024 8: 24am pillar May 11, 2024 10:46am Z86.39 May 24, 2024 8: 38am z36.89 June 22, 2024 1 2:51pm z34.92 z3a.18 z86.39 z34.92 June 7:51am Chief Complaint Admit Date z36.89 June 22, 2024 1 2:51pm z34.92 z3a.18 z86.39 z34.92 June 7:51am z86.39 July 31, 2024 8:43am LVH/20 wks August 25, 2024 1 1:56am Chief Complaint Admit Date z36.89 June 22, 2024 1 2:51pm z34.92 z3a.18 z86.39 z34.92 June 7:51am z86.39 July 31, 2024 8:43am LVH/20 wks August 25, 2024 1 1:56am I51.7 August 25, 2024 1 2:02pm Reason for Visit Admit Date Class 2 obesity with body ma ss index (BMI) of 37.0 to 37.9 in adult August 25, 2024 11:56am Tiffani's disease August 25, 2024 1 1:56am Hypothyroidism August 25, 2024 1 1:56am Mild left ventricular hypertrophy Januar 2024 11:56am Second trimester August 25, 2024 11:56am Reason for Referral Reason ENT- [facility]- thyromegal y/abnormal US/dysphagia Diagnosis 1 Dysphagia, unspecifi ed type (R13.10) Referral Organization [facility] Referring Provider First Name Darwin Referring Provider Last Name [facility] Referring Provider Specialty Nurse Pract itioner Referred Organization [facility] Referred Address [address] [place], [place],[address] Referred Provider Specialty Ear, Nose an d Throat Referral Priority Routine Reason ABNORMAL US OF THYRO ID Newly discovered Hashimotos Diagnosis 1 Thyromegaly (E01.0) Referral Organization [facility] Referring Provider First Name Darwin Referring Provider Last Name [facility] Referring Provider Specialty Nurse Pract itioneheladio Referred Provider Specialty Ear, Nose an d Throat Referral Priority Routine Additional Source Comments INFORMATION SOURCE (unrecogn ized section and content) DATE CREATED AUTHOR 09/04/2021 [employer] DATE CREATED AUTHOR AUTHOR'S ORGANIZ ATION 12/18/2022 [facility] DATE CREATED AUTHOR AUTHOR'S ORGANIZ ATION 11/22/2023 [facility] DATE CREATED AUTHOR AUTHOR'S ORGANIZ ATION 03/20/2024 [facility] DATE CREATED AUTHOR AUTHOR'S ORGANIZ ATION 08/05/2024 [facility] DATE CREATED AUTHOR AUTHOR'S ORGANIZ ATION 08/30/2024 [facility] DATE CREATED AUTHOR AUTHOR'S ORGANIZ ATION 09/06/2024 [facility] DATE CREATED AUTHOR AUTHOR'S ORGANIZ ATION 09/08/2024 [facility] DATE CREATED AUTHOR AUTHOR'S ORGANIZ ATION 09/09/2024 [facility] DATE CREATED AUTHOR AUTHOR'S ORGANIZ ATION 09/09/2024 [facility] DATE CREATED AUTHOR AUTHOR'S ORGANIZ ATION 09/13/2024 [facility] Care Teams (unrecognized sec tion and content) [...] Dates Darwin Jones APRN Primary Care Pr cassie, Attending Provider Active Start: October 20, 2023 End: October 20, 2023 Team Status: Inactive Member Role Status Dates Darwin Jones APRN Primary Care Provider Active Start: November 01, 2023 End: November 01, [address] Attending Provider Active Start: [facility] 2023 End: November 01, 2023 Team Status: Inactive Member Role Status Dates Darwin Jones APRN Primary Care Pr cassie, Attending Provider Active Start: November 25, 2023 End: November 25, 2023 Team Status: Inactive Member Role Status Dates Darwin Jones APRN Primary Care Provider Active Start: November 30, 2023 End: November 30, [address] Attending Provider Active Start: Zurdo mariano 2023 End: November 30, 2023 Team Status: Active Member Role Status Dates Provider Conversion Attending Provider Active St art: August 30, 2023 Team Status: Inactive Member Role Status Dates Darwin Jones , CONCESSIONIST Primary Care Provider Active Addi Ortega DO [facility] Attending Provider Active Team Status: Inactive Member Role Status Dates Darwin Jones , CONCESSIONIST Primary Care Provider Active Brain Way Attending Provider Active Team Status: Active Member Role Status Dates Darwin Jones , CONCESSIONIST Primary Care Provider Active Ofelia Hester APRN Active Ofelia Hester , SHIRLEY Attending Provider Active Team Status: Inactive Member Role Status Dates Darwin Jones , CONCESSIONIST Primary Care Provider Active Ofelia Hester , SHIRLEY Attending Provider Active Team Status: Inactive Member Role Status Dates PHYSICIAN NO FAMILY Primary Care Provider Active Addi Ortega DO [facility] Attending Provider Active Team Status: Active Member Role Status Dates PHYSICIAN NO FAMILY Primary Care Provider Active Team Status: Inactive Member Role Status Dates Darwin Jones , CONCESSIONIST Primary Care Provider, Attend ing Provider Active Team Status: Inactive Member Role Status Dates Darwin Jones , CONCESSIONIST Primary Care Provider Active Saad Valera DO Attending Provider Active Switch Technician Relationship Specialty Start Date End Date RoberterDarwin cavazos, DIRECTOR OF MARKETING [address] [address] Referring Family Medicine 04/22/22 Switch Technician Relationship Specialty Start Date End Date Darwin Jones, DIRECTOR OF MARKETING [address] [address] Referring Family Medicine 04/22/22 Team Status: Inactive Member Role Status Dates Darwin Jones , CONCESSIONIST Primary Care Provider Active Jeovanny Quiros DO Emergency Provider Active Switch Technician Relationship Specialty Start Date End Date EasterwoodHervea, DIRECTOR OF MARKETING [address] [facility] [address] [place] [address] Referring Family Medicine 04/22/22 Switch Technician Relationship Specialty Start Date End Date EasterwoodHervea, DIRECTOR OF MARKETING [address] [facility] [address] [place] [address] Referring Family Medicine 04/22/22 Team Status: Inactive Member Role Status Dates Darwin Jones APRN Attending Provider Active Start: July 23, 2023 End: July 23, 2023 Team Status: Inactive Member Role Status Dates Darwin Jones APRN Attending Provider Active Start: August 25, 2023 End: August 25, 2023 Switch Technician Relationship Specialty Start Date End Date Darwin Jones CNP [address] [place] [address] [address] [place] [address] Referring Family Medicine 04/22/22 Team Status: Inactive Member Role Status Dates Darwin Jones APRN Primary Care Pr ovidanisa, Attending Provider Active Start: December 24, 2023 [...] Dates Darwin Jones APRN Primary Care Pr cassie, Attending Provider Active Start: January 25, 2024 [...] 24, 2024 End: February 24, 2024 Brain Chiango , DO Attending Provider Active Start : February 24, 2024 End: February 24, 2024 Team Status: Inactive Member Role Status Dates Darwin Jones APRN Primary Care Provider Active Start: April 06, 2024 End: April 06, 2024 Addi PERES DO [facility] Attending Provider Active Start: April 06, 2024 End: April 06, 2024 Team Status: Inactive Member Role Status Dates Darwin Jones APRN Primary Care Pr ovider, Attending Provider Active Start: May 11, 2024 End: May 11, 2024 Team Status: Inactive Member Role Status Dates Darwin Jones APRN Primary Care Provider Active Start: May 24, 2024 End: May 24, [address] , DO Attending Provider Active Start : May 24, 2024 End: May 24, 2024 Switch Technician Relationship Specialty Start Date End Date No Pcp, [place] [address] PCP - General Family Medicine 08/19/19 Switch Technician Relationship Specialty Start Date End Date No Pcp, [place] [address] PCP - General Family Medicine 08/19/19 Team Status: Inactive Member Role Status Dates Darwin Jones APRN Primary Care Provider Active Start: June 22, 2024 End: June 22, [address] DO Attending Provider Active Start : June 22, 2024 End: June 22, 2024 Team Status: Inactive Member Role Status Dates Darwin Jones APRN Primary Care Provider Active Start: June 28, 2024 End: June 28, [address] DO Attending Provider Active Start : June 28, 2024 End: June 28, 2024 Switch Technician Relationship Specialty Start Date End Date No Pcp, [place] [address] PCP - General Family Medicine 08/19/19 Team Status: Inactive Member Role Status Dates Darwin Jaclyn Jones APRN Primary Care Provider Active Start: July 31, 2024 End: July 31, [address] DO Attending Provider Active Start : July 31, 2024 End: July 31, 2024 Team Status: Inactive Member Role Status Dates Darwin Jaclyn Jones APRN Primary Care Provider Active Start: August 25, 2024 End: August 25, 2024 Mary Ellen Bruce MD Attending Provider Active Sta rt: August 25, 2024 End: August 25, 2024 Team Status: Active Member Role Status Dates Darwin Jones APRN Primary Care Provider Active Start: August 25, 2024 Mary Ellen Bruce MD Attending Provider Active Sta rt: August 25, 2024 Goals (unrecognized section and content) Goals [...] sectionGoals may be documented in an alternate sectionNot on filedocumented as of this encounterNot on filedocumented as of this encounterGoals may be documented in an alternate sectionGoals may be documented in an alternate sectionNot on filedocumented as of this encounterGoals may be documented in an alternate sectionGoals may be documented in an alternate section No data available for this section No data available for this section REASON FOR VISIT (unrecogniz ed section and content) Reason Comments Appointment LVM for patient that appt on 05/[address] George has been rescheduled to 07/08 at [facility] with Dr. Robertson. sending mail reminder as well. Reason Comments Thyroid Problem Reason Comments Consult Reason Comments Appointment Reason Comments Routine Visit Reason Comments Tiffani's Thyroiditis Reason Comments Amenorrhea Source Comments (unrecognize d section and content) In the event this informatio n is protected by the Federal Confidentiality of Alcohol and Drug Abuse Patient Records regulations: The Federal rules restrict any use of the information to criminally investigate or prosecute any alcohol or drug abuse patient.[facility] the event this information is protected by the Federal Confidentiality of Alcohol and Drug Abuse Patient Records regulations: The Federal rules restrict any use of the information to criminally investigate or prosecute any alcohol or drug abuse patient.[facility] System[facility] the event this information is protected by the Federal Confidentiality of Alcohol and Drug Abuse Patient Records regulations: The Federal rules restrict any use of the information to criminally investigate or prosecute any alcohol or drug abuse patient.[facility] System[facility] the event this information is protected by the Federal Confidentiality of Alcohol and Drug Abuse Patient Records regulations: The Federal rules restrict any use of the information to criminally investigate or prosecute any alcohol or drug abuse patient.[facility] System[facility] the event this information is protected by the Federal Confidentiality of Alcohol and Drug Abuse Patient Records regulations: The Federal rules restrict any use of the information to criminally investigate or prosecute any alcohol or drug abuse patient.[facility] System[facility] the event this information is protected by the Federal Confidentiality of Alcohol and Drug Abuse Patient Records regulations: The Federal rules restrict any use of the information to criminally investigate or prosecute any alcohol or drug abuse patient.[facility] FOR RECORDS PERTAINING TO PATIENTS WHO ARE [...] BE BASED ON THE PRIMARY CLINICAL RECORDS. [facility]. provides no warranty or guarantee of the accuracy or completeness of information in this document.
--- NOTE | 2024-09-14 19:51 | US_ITS ---
[address] [address] Patient Name: BARBY HERRING MRN: [id number] date: 1995 Sex: F Assigned Patient Location: [place] Current Patient Location: Accession/Order Number: [id number] Exam Date: 09/14/2024 19:57 Report Date: 09/15/2024 06:15 At the request of: GAMAL ADAN Procedure: US OB BPP w non-stress EXAMINATION: US OB BPP w non-stress HISTORY:EXCESSIVE GROWTH AFFECTING O36.63X1 COMPARISON: Ultrasound OB growth 09/11/2024 TECHNIQUE: Ultrasound biophysical profile was performed in the radiology department. BREATHING MOVEMENTS: 2 GROSS BODY MOVEMENTS: 2 TONE: 2 QUALITATIVE AMNIOTIC FLUID VOLUME: 2 PRESENTATION: CEPHALIC HEART RATE: 144.39 bpm AMNIOTIC FLUID VOLUME: 24.01 cm GESTATIONAL AGE: 32 weeks 1 day US/US OB BPP w non-stress IMPRESSION: 1. Total biophysical profile score: 8 Electronically authenticated by: IRENE HARRINGTON Date: 09/15/2024 06:15
--- OUTSIDE RECORDS SUMMARY | 2024-09-14 20:29 | XMS_ITS | CCD ---
Author Organization [facility] Care Team Providers Care Front Desk Receptionist Name Role Phone Unknown, Unknown Unavailable Unavailable Unavailable Unavailable NO FAMILY, PHYSICIAN Primary Care Provider Unava ilable DO Addi Ortega Attending Provider Darwin Jones Unavailable DARWIN JONES Primary Care Physician Lilly Luke Unavailable SHIRLEY Jones Primary Care Provider SHIRLEY Jones Attending Provider [phone] DO Saad Valera Attending Provider [phone] [facility] AMIE Darwin Unavailable Sima Ross Unavailable [facility] AMIE Darwin Unavailable [phone] SHIRLEY Jones Primary Care Provider SHIRLEY Hester Attending Provider SHIRLEY Jones Primary Care Provider [phone] SHIRLEY Hester Attending Provider Brain Way Attending Provider REQUEST, DR HOBSON LISTED Primary Care Unavaila ble SEAMUS ., DR YEUNG Attending Unavailable SEAMUS ., DR YEUNG Consulting Unavailable SEAMUS ., DR YEUNG Admitting Unavailable SHIRLEY Jones Primary Care Provider DO Addi Ortega [facility] Provider [phone] DO Jeovanny Quiros Emergency Provider [facility] Provider DO Addi Ortega [facility] Care Provider Brain Way Attending Provider [phone] [facility] Care Provider Brain [address] Attending Provider RUBY WHITTINGTON Attending Unavailable FRANCY GAN Attending Unavailable [facility] SHIRLEY Anaya Primary Care Provider [phone] Attending Provider [phone] [facility] Primary Care Provider DO Brain Way Attending Provider [phone] [place] Attending Unavailable Gabriel Curtis Attending Unavailable Tyrone Rock Attending [facility] Primary Care Provider DO Brain Way Attending Provider [phone] [facility] DO Addi PERES Attending Provider [facility] Primary Care Provider DO Brain Way Attending Provider [phone] [facility] Primary Care Provider DO Brain Way Attending Provider [phone] Unavailable Primary Care Provider Unavailabl e No Pcp, No Pcp Primary Care Provider Unavailabl e [facility] Darwin WATSON Primary Care Provider [facility] Addi SELLERS Attending Provider Seamus DO, Brain Attending Provider SEAMUS, BRAIN R Referring Unavailable NO PCP, NO PCP Primary Care Unavailable ISHA REILLYOLINA P Attending Unavailable NO PCP, NO PCP Primary Care Unavailable MANOJVA, NIKOLINA P Referring Unavailable DARCY ENRIQUEZ Attending Unavailable SEAMUS, BRAIN R Referring Unavailable NO PCP, NO PCP Primary Care Unavailable [facility] Darwin WATSON Primary Care Provider Willow Way DOy Attending Provider Mary Ellen Bruce MD Attending Provider Seamus, Brain Admitting Unavailable [facility], Darwin J Primary Care Unavailable Seamus, Brain Attending Unavailable Seamus, Brain Admitting Unavailable [facility], Darwin J Primary Care Unavailable Seamus, Brain Attending Unavailable [facility], Addi P Admitting Unavailable [facility], Addi P Attending Unavailable [facility], Darwin J Primary Care Unavailable [facility], Darwin Primary Care Unavailable Seamus, Brain Attending Unavailable Seamus, Brain Admitting [facility]available [facility] Primary Care Unavailable Seamus, Brain Attending Unavailable Seamus, Brain Admitting Unavailable [facility] J Primary Care Unavailable Seamus, Brain Attending Unavailable Seamus, Brain Admitting Unavailable [facility], Darwin J Primary Care Unavailable Seamus, Brain Attending Unavailable Seamus, Brain Admitting Unavailable Seamus, Brain Attending Unavailable [facility], Darwin J Primary Care Unavailable Seamus, Brain Admitting Unavailable Seamus, Brain Attending Unavailable [facility], Darwin J Primary Care Unavailable Seamus, Brain Admitting Unavailable Seamus, Brain Attending Unavailable [facility], Darwin J Primary Care Unavailable Seamus, Brain Admitting Unavailable Mary Ellen Bruce Admitting Unavailable Mary Ellen Bruce Attending Unavailable [facility], Darwin J Primary Care Unavailable Seamus, Brain Admitting [facility]available [facility] J Primary Care Unavailable Seamus, Brain [...] Medication Allergies] Propensity to adverse reactions (disorder) [facility] Repository Medications Current Medications Medication Drug Class(es) [...] tablet (2 sources) Opioid Agonist Start: 06-03-2021 [place] 325 mg-5 mg oral tablet 2 tab(s), [...] day(s), # 20 tab(s), Refills(s) 0, Pharmacy: [facility], 170.2, cm, 09/29/23 10:44:00 EST, Height/Length [...] day(s), # 28 cap(s), Refills(s) 0, Pharmacy: [facility], 170.2, cm, 03/22/23 20:14:00 EDT, Height/Length Dosing, 113.5, kg, 03/22/23 20:14:00 EDT, Weight Dosing Start Date: 03/22/23 Stop Date: 03/29/23 Status: Ordered Start: 07-03-2021 take 1 capsule by mo [facility] twice daily Keflex 500 mg Cap 500 mg = 1 cap(s), Oral, BID, # 10 cap(s), Refills(s) 0, Pharmacy: [facility], 170, cm, 06/27/21 10:56:00 EST, Height/Length [...] Start: 08-25-2024 take 1 capsule by mo [facility] once daily Levothyroxine 100 mcg capsule Active [...] day(s), # 21 tab(s), Refills(s) 0, Pharmacy: [facility], 170.2, cm, 09/29/23 10:44:00 EST, Height/Length [...] Apr, Active take 1 capsule by mo [facility] once daily omeprazole (PRILOSEC) 20 mg capsule [...] Date: 02/18/22 Stop Date: 02/21/22 Status: Ordered Aou027-Btfixhx Fumarate-Fa () 28-800 mg-mcg Tablet (20 sources) Start: 12-29-2020 Zvp381-Nxjahej Fumarate-Fa () 28-800 mg-mcg Tablet Active TAB PO December 29, 2020 3:43pm Start: 12-29-2020 End: 10-07-2023 Vel179-Wpathxl Fumarate-Fa ( ) 28-800 mg-mcg Tablet Discontinued TAB PO December 28, 2020 11:00pm October 07, 2023 6:06pm Start: 12-29-2020 End: 10-07-2023 Xud600-Dyakkla Fumarate-Fa ( ) 28-800 mg-mcg Tablet Discontinued TAB PO December 29, 2020 12:00am October 07, 2023 7:06pm Start: 12-29-2020 Ake628-Dcvwogd Fumarate-Fa () 28-800 mg-mcg Tablet Active TAB PO December 28, 2020 11:00pm Start: 12-29-2020 Cxq699-Jawdjrl Fumarate-Fa () 28-800 mg-mcg Tablet Active TAB PO December 29, 2020 12:00am kiilsn42-lwtj fum-folic ac-o m3 (One Daily ) (8 sources) Start: 08-25-2024 zkjyhm99-brrh fum-folic ac-om3 (One Daily ) Active 1 PKG PO Daily August 25, 2024 12:10pm Start: 05-11-2024 End: 08-25-2024 efdwvi37-xkuh fum-folic ac-o m3 (One Daily ) Discontinued PO May 10, 2024 11:00pm August 25, 2024 12:11pm Start: 05-11-2024 -igzs fum-folic ac-om3 (One Daily ) Active PO May 10, 2024 11:00pm Start: 05-11-2024 iquziu17-mjtc fum-folic ac-om3 (One Daily ) Active PO May 11, 2024 12:00am MV-Min-Fe Fum-FA-DHA ( 1 PO) (20 sources) MV-Min- Fe Fum-FA-DHA ( 1 PO) Take 1 each by mouth Daily Active xt322-kkth-bbssi acid ( 19) 29 mg iron- 1 mg tablet,chewable (2 sources) yi609-knuw-loviv acid ( 19) 29 mg iron- 1 [...] source) Vitamin B12 cyanocobalamin/f olic acid (VITAMIN P37-WUNMV ACID) 1,000-400 mcg lozg Take by mouth [...] Start: 05-26-2023 take 1 capsule by mo [facility] every twenty-four hours Phentermine HCl 37.5 MG 1 capsule Orally Once a day for 30 days May, Active Comment on above: Take 37.5 mg by moma h. Vitamin (14 sources) Vitamin OTC Not-Taking [...] Interpretation Reference Range Facility OB GROWTH 09-11-2024 [place] [id number] Ultrasound Report Signed Patient: TAWNYA HERRING MR#: [id number] : 1995 Acct:[id number] Age/Sex: 29 / F ADM Date: 09/11/24 Loc: US Attending Dr: Mya Finch Ordering Physician: Mya Finch Date of Service: 09/11/24 Procedure(s): US OB growth Accession Number(s): [id number] cc: Mya Finch; Darwin Jones NP [address] [address] Patient Name: TAWNYA HERRING MRN: [id number] date: 1995 Sex: F Assigned Patient Location: US Current Patient Location: US Accession/Order Number: [id number] Exam Date: 09/11/2024 10:00 Report Date: 09/11/2024 [...] Signed By: 09/11/24 1111 DD/ 1108 TD/TT: Paddle Dyeing Machine Operator: [facility] Radiology, Radiologi MD diane - 09/11/2024 [place] [address] Ultrasound Report Signed Patient: TAWNYA HERRING MR#: [id number] : 1995 Acct:[id number] Age/Sex: 29 / F ADM Date: 09/11/24 Loc: US Attending Dr: Mya Finch Ordering Physician: Mya Finch Date of Service: 09/11/24 Procedure(s): US OB growth Accession Number(s): [id number] cc: Mya Finch; Darwin Jones HUMAN RESOURCES SPECIALIST The [place] [id number] Patient Name: TAWNYA HERRING MRN: [id number] date: 1995 Sex: F Assigned Patient Location: Current Patient Location: US Accession/Order Number: [id number] Exam Date: 09/11/2024 10:00 Report Date: 09/11/2024 [...] Signed By: 09/11/24 1111 DD/ 1108 TD/TT: Paddle Dyeing Machine Operator: [facility] Radiology Study observation (narrative) [facility] OB GROWTHOrdered By: Halima ologleighton Radiology on 09-11-2024 [facility] Work Phone: D Urineon 09-07-2024 Bacteria identified Cx Nom (U) [...] Locations R1: This test was performed at: [facility], [address] [place] [address], [phone]- , , [facility] Comment on above: Performed By: #### 2 [id number] #### [facility] Laboratory [address] [place] [address] Urinalysis macro (dipstick) panel (U)on 09-07-2024 Bilirubin, UA Negative Negative - 4(70) +++ mg/dL [facility] Blood, UA Negative Negative - 50 Dain/mcL [facility] Clarity, UA Clear [facility] Color, UA Yellow [facility] Glucose, UA Negative Negative - 1999(110) ++++ mg/dL [facility] Interpretation and review of laboratory results Normal [facility] Ketones, UA Negative Negative - 160(16) ++++ mg/dL [facility] Leukocytes, UA Negative Negative - 500+++ Chaparrita/mcL [facility] Nitrite, UA Negative Negative - Positive [facility] pH, UA 8 5 - 9 [facility] Protein, UA Negative Negative - 2000(20) ++++ mg/dL [facility] Spec Grav, UA 1.015 1 - 1.03 [facility] Urobilinogen, UA 1.0 0.2 - 12 mg/dL [facility] ED Clinical Summaryon 2024 ED Clinical Summary ED Clinical Summary [address] [address] ED Clinical Summary Person Information Name: TAWNYA HERRING [place] Age: 29 Years : 1995 Sex: Female Language: Vincentian PCP: DARWIN JONES CNP Marital Status: Single Phone: [phone] Visit Id: Visit Reason: Headache; HEADACHE, FALL [...] 09/06/2024 16:26:55 09/06/2024 16:26:55 09/06/2024 16:26:55 ADDRESS: [address] [place] [phone] PHYS DOC NOTES: MEDICAL INFORMATION: Prescriptions Given: [...] day. PATIENT EDUCATION INFORMATION: Instructions: Concussion, Adult, Bzbe-hi-Yocd Follow up: With: Address: When: DARWIN [address] [place] [address] [phone] Business (1) In 3 days 09/09/2024 Comments: Call to schedule a follow-up appointment with your primary care provider. Use Zofran as needed for nausea/vomiting. Return to the ED with any new or worsening symptoms. DIAGNOSIS: JEFFERSON (headache) Normal [facility] ED Note-Physicianon 09-06-19 ED Note-Physician ED Note-Physician [...] headache. She denies the use of any fnzv-eup-ciqwfny medications for this. Patient denies any neck [...] [] Head CT not ordered by emergency child care development specialist [] Head CT ordered for reasons other than trauma [] Patient is 18 or older, presenting with minor blunt head trauma. Head CT (including cosigned orders) was ordered by an emergency child care development specialist for trauma because (select one or more):[SATISFIES MIPS PERFORMANCE]Reasons: [] Patient is 65 or older [] Patient GCS < 15 [] Patient has focal neurologic deficit [] Patient has severe headache [] Patient is vomiting [] Severe/dangerous mechanism of injury was identified(select one or more): []MVA with: patient ejection, of another passenger, rollover, speed > 40mph, airbag deployment, professional driver or passenger on ATV or motorcycle [...] cosigned orders) was ordered by an emergency child care development specialist for trauma, no indication specified.[DOES NOT SATISFY MIPS PERFORMANCE] Medical Decision Making Patient is a 29-year-old female with a history of anxiety who presents to the ED 30 weeks with complaints of a headache following a syncope episode from a seated position yesterday. Patient is hemodynamically st (more content not included)... Normal [facility] Comment on above: Result Comment: Elec tronically Signed By: Lashon Tee PA-C\.br\Date and Time Signed: 09/06/24 16:20 EST\.br\Electronically Co-Signed By: Lashon Tee PA-C\.br\Date and Time Co-Signed: 09/06/24 16:21 EST\.br\Electronically Co-Signed By: Flash Franco DO\.br\Date and Time Co-Signed: 09/06/24 19:47 EST ED Patient Summaryon 025 ED Patient Summary ED Patient Summary [place] [id number] Patient Discharge Instructions Person Information Name: TAWNYA HERRING Age: 29 Years Arrival Date: 09/06/2024 13:57:18 Discharge Diagnosis: JEFFERSON (headache) Primary Care Physician: DARWIN JONES CNP Provider Information Primary Provider: Flash Franco DO Advanced Mechanical Design Drafter:Lashon Tee PA-C The exam and treatment you received in the Emergency Department were for an urgent problem and are not intended as complete care. It is important that you follow up with a doctor, nurse practitioner, or physician???s housekeeper and laundry assistant for ongoing care. If your symptoms [...] Follow-up Instructions: With: Address: When: DARWIN JONES [address] [place] [address] [phone] Business (1) In 3 days 09/09/2024 Comments: [...] participating provider. Patient Education Materials: Concussion, Adult, Qbsa-qh-Tnne A MESSAGE TO ALL PATIENTS REGARDING OPIOIDS PRESCRIPTION OPIOIDS: WHAT YOU NEED TO KNOW Prescription opioids can be used to help relieve fqoqumio-zs-htvfpm pain and are often prescribed following a [...] (www.fda.gov/Drugs/Resourc esForYou). (more content not included)... Normal [facility] BLOOD BANKOrdered By: Estefany Morillo on 09-05-2024 Fibronectin. Ql (Vag fld) Negative 1 (09/05/24 5:47 AM) Normal [facility] Man Sero Comment on above: Interpretive Data: [...] Anion gap [Moles/Vol] 16 mmol/L Normal 6-16 [facility] Comment on above: Performed By: #### 2 [id number] #### [facility] [address] [place] [address] Calcium [Mass/Vol] 8.5 mg/dL Low 8.9-11.1 [facility] Comment on above: Performed By: #### 2 [id number] #### [facility] [address] [place] [address] Chloride [Moles/Vol] 108 mmol/L Normal 101-111 [facility] Comment on above: Performed By: #### 2 [id number] #### [facility] [address] [place] [address] CO2 [Moles/Vol] 17 mmol/L Low 21-31 [facility] Comment on above: Performed By: #### 2 [id number] #### [facility] [address] [place] [address] Creatinine [Mass/Vol] 0.4 mg/dL Low 0.5-1.3 [facility] Comment on above: Performed By: #### 2 [id number] #### [facility] [address] [place] [address] Glucose [Mass/Vol] 103 mg/dL Normal 55-199 [facility] Comment on above: Performed By: #### 2 [id number] #### [facility] [address] [place] [address] Potassium [Moles/Vol] 3.6 mmol/L Normal 3.5-5.3 [facility] Comment on above: Performed By: #### 2 [id number] #### [facility] [address] [place] [address] Sodium [Moles/Vol] 137 mmol/L Normal 135-145 [facility] Comment on above: Performed By: #### 2 [id number] #### [facility] [address] [place] [address] Urea nitrogen [Mass/Vol] 9 mg/dL Normal 5-21 [facility] Comment on above: Performed By: #### 2 914104 #### [facility] [address] [place] [address] Urea nitrogen/Creatinine [Mass ratio] 22 No Units High 10-20 [facility] Comment on above: Performed By: #### 2 605663 #### [facility] [address] [place] [address] CBC w/ Auto Diffon 5 Basophils/100 WBC (Bld) 0.4 % Normal 0.0-2.0 [facility] Comment on above: Performed By: #### 2 [id number] #### [facility] [address] [place] [address] Basophils/Leukocytes Auto (Bld) [Pure # fraction] 0.1 E9/L Normal 0.0-0.2 [facility] Comment on above: Performed By: #### 2 [id number] #### [facility] [address] [place] [address] Eosinophils (Bld) [#/Vol] 0.0 E9/L Normal 0.0-0.5 [facility] Comment on above: Performed By: #### 2 622607 #### [facility] [address] [place] [address] Eosinophils/100 WBC (Bld) 0.3 % Normal 0.0-8.0 [facility] Comment on above: Performed By: #### 2 [id number] #### [facility] [address] [place] [address] Erythrocyte distribution width (RBC) [Ratio] 12.7 % Normal 10.9-14.2 [facility] Comment on above: Performed By: #### 2 [id number] #### [facility] [address] [place] [address] Hematocrit (Bld) [Volume fraction] 37.4 % Normal 34.0-46.0 [facility] Comment on above: Performed By: #### 2 [id number] #### [facility] [address] [place] [address] Hemoglobin (Bld) [Mass/Vol] 13.2 g/dL Normal 12.0-16.0 [facility] Comment on above: Performed By: #### 2 [id number] #### [facility] [address] [place] [address] Lymphocytes (Bld) [#/Vol] 1.1 E9/L Normal 1.0-4.0 [facility] Comment on above: Performed By: #### 2 [id number] #### [facility] [address] [place] [address] Lymphocytes/100 WBC (Bld) 7.0 % Low 14.0-50.0 [facility] Comment on above: Performed By: #### 2 [id number] #### [facility] [address] [place] [address] MCH (RBC) [Entitic mass] 33.0 pg Normal 27.0-34.0 [facility] Comment on above: Performed By: #### 2 [id number] #### [facility] [address] [place] [address] [place] [address] MCHC (RBC) [Mass/Vol] 35.4 g/dL Normal 31.4-36.0 [facility] Comment on above: Performed By: #### 2 045042 #### [facility] [address] [place] [address] MCV (RBC) [Entitic vol] 93.3 fL Normal 80.0-100.0 [facility] Comment on above: Performed By: #### 2 [id number] #### [facility] [address] [place] [address] Monocytes (Bld) [#/Vol] 0.7 E9/L Normal 0.2-1.0 [facility] Comment on above: Performed By: #### 2 [id number] #### [facility] [address] [place] [address] Neutrophils (Bld) [#/Vol] 13.7 E9/L High 2.0-7.5 [facility] Comment on above: Performed By: #### 2 895243 #### [facility] [address] [place] [address] Neutrophils/100 WBC (Bld) 87.6 % High 36.0-75.0 [facility] Comment on above: Performed By: #### 2 [id number] #### [facility] [address] [place] [address] Platelet 324.0 E9/L Normal 150.0-500. 0 [facility] Comment on above: Performed By: #### 2 750558 #### [facility] [address] [place] [address] Platelet mean volume (Bld) [Entitic vol] 8.3 fL Normal 6.4-10.8 [facility] Comment on above: Performed By: #### 2 234692 #### [facility] [address] [place] [address] RBC (Bld) [#/Vol] 4.0 E12/L Low 4.3-5.9 [facility] Comment on above: Performed By: #### 2 452257 #### [facility] [address] [place] [address] WBC corrected for nucl RBC Auto (Bld) [#/Vol] 15.6 E9/L High 4.0-11.0 [facility] Comment on above: Performed By: #### 2 [id number] #### [facility] [address] [place] [address] CHEMISTRYOrdered By: SYSTEM SYSTEM on 09-05-2024 Albumin [...] Sensitivity Troponin I Instructions For Use, [place], March 2018) Urea nitrogen [Mass/Vol] 9 mg/dL Normal 5 - 21 mg/dL Remisol Chem Urea nitrogen/Creatinine [Mass ratio] 22 mg/mg High 10 - 20 Remisol Chem ED Clinical Summaryon 2024 ED Clinical Summary ED Clinical Summary [place] [id number] ED Clinical Summary Person Information Name: TAWNYA HERRING [facility] Age: 29 Years : 1995 Sex: Female Language: Vincentian PCP: DARWIN JONES CNP Marital Status: Single Phone: [phone] Visit Id: Visit Reason: Abdominal pain - [...] 09/05/2024 04:35:45 09/05/2024 04:35:45 09/05/2024 04:35:45 ADDRESS: [address] [place] [phone] PHYS DOC NOTES: MEDICAL INFORMATION: Prescriptions Given: Medications to Continue with No Changes Other Medications citalopram (CeleXA 20 mg Tab) 1 Tablets By Mouth every day. PATIENT EDUCATION INFORMATION: Instructions: Syncope, Adult, Chen-xq-Pqrv; Nausea and Vomiting, Adult, Lhwf-eq-Csnh; Diarrhea, Adult, Bxjx-oc-Bnky; Dehydration, Adult, Htse-bk-Wxoc Follow up: With: Address: When: DARWIN JONES [address] [place] [address] [phone] Business (1) In 3 days 09/08/2024 Comments: Please follow-up with Dr. Way for further evaluation management. Please return to the ED for any new or worsening symptoms. DIAGNOSIS: Dehydration; Diarrhea, unspecified; Nausea, vomiting, and diarrhea; Syncope Normal [facility] ED Note-Nursingon 09-05-2024 ED Note-Nursing ED Note-Nursing OB at bedside Normal [facility] ED Note-Physicianon 09-05-19 ED Note-Physician ED Note-Physician [...] and Complexity of Problems Differential Diagnosis: [] [facility] Data External documents reviewed: [] My EKG [...] Dayna 50 mL [F] 50 mL + yyqucu91Bjodceijb [F] 25 mg, IV Piggyback Disposition Plan [...] Use, 03/12/2020 (more content not included)... Normal [facility] Comment on above: Result Comment: Elec tronically Signed By: Gabriel Curtis DO\.br\Date and Time Signed: 09/05/24 04:22 EST ED Patient Summaryon 025 ED Patient Summary ED Patient Summary [place] [id number] Patient Discharge Instructions Person Information Name: TAWNYA HERRING Age: 29 Years Arrival Date: 09/05/2024 03:02:46 Discharge Diagnosis: Dehydration; Diarrhea, unspecified; Nausea, vomiting, and diarrhea; Syncope Primary Care Physician: DARWIN JONES CNP Provider Information Primary Provider: Gabriel Curtis DO Advanced Mechanical Design Drafter:None The exam and treatment you received in the Emergency Department were for an urgent problem and are not intended as complete care. It is important that you follow up with a doctor, nurse practitioner, or physician???s housekeeper and laundry assistant for ongoing care. If your symptoms [...] Follow-up Instructions: With: Address: Charissa: DARWIN JONES [address] [place] [id number] [phone] Business (1) In 3 days 09/08/2024 Comments: Please follow-up with Dr. Way for further evaluation management. Please return to the ED for any new or worsening symptoms. In the event that this physician does not participate in your insurance network, please consult with your insurance company to find a nearby participating provider. Patient Education Materials: Syncope, Adult, Juqe-re-Spql; Nausea and Vomiting, Adult, Xdwn-dj-Cuwm; Diarrhea, Adult, Kkjp-tn-Ifnk; Dehydration, Adult, Xlmt-kw-Cixf A MESSAGE TO ALL PATIENTS REGARDING OPIOIDS PRESCRIPTION OPIOIDS: WHAT YOU NEED TO KNOW Prescription opioids can be used to help relieve jvsdsslp-wl-kkakis pain and are often prescribed following a [...] down t (more content not included)... Normal [facility] Extra Blueon 09-05-2024 Tube Collected Plasma Yes Invalid Interpretation Code [facility] Comment on above: Performed By: #### 1 [id number] #### [facility] Laboratory [address] [place] [address] FFNon 09-05-2024 Fibronectin. Ql (Vag fld) Negative Normal [facility] Comment on above: Result Comment: In S [...] the antibody-antigen reaction. Performed By: #### 1 [id number] #### [facility] Laboratory [address] [place] [address] HEMATOLOGYOrdered By: SYSTEM SYSTEM on 09-05-2024 Basophils/100 [...] 09-05-2024 Albumin [Mass/Vol] 3.8 g/dL Normal 3.3-5.0 [facility] Comment on above: Performed By: #### 2 [id number] #### [facility] [address] [place] [address] Albumin/Globulin (S) [Mass conc ratio] 1.5 Normal 1.1-2.2 [facility] Comment on above: Performed By: #### 2 [id number] #### [facility] [address] [place] [address] ALP [Catalytic activity/Vol] 80 Int._Unit/L Normal 21-98 [facility] Comment on above: Performed By: #### 2 [id number] #### [facility] [address] [place] [address] ALT No additional P-5'-P [Catalytic activity/Vol] 20 Int._Unit/L Normal 6-46 [facility] Comment on above: Performed By: #### 2 [id number] #### [facility] [address] [place] [address] AST [Catalytic activity/Vol] 15 Int._Unit/L Normal 5-43 [facility] Comment on above: Performed By: #### 2 [id number] #### [facility] Laboratory [address] [place] [address] Bilirubin [Mass/Vol] 0.6 mg/dL Normal 0.0-1.1 [facility] Comment on above: Performed By: #### 2 [id number] #### [facility] Laboratory [address] [place] [address] Bilirubin.direct [Mass/Vol] 0.1 mg/dL Normal 0.0-0.4 [facility] Comment on above: Performed By: #### 2 [id number] #### [facility] [address] [place] [address] Bilirubin.indirect [Mass or moles/Vol] 0.5 mg/dL Normal 0.1-0.9 [facility] Comment on above: Performed By: #### 2 [id number] #### [facility] [address] [place] [address] Globulin (S) [Mass/Vol] 2.6 g/dL Normal 1.4-4.0 [facility] Comment on above: Performed By: #### 2 [id number] #### [facility] [address] [place] [address] Protein [Mass/Vol] 6.4 g/dL Normal 6.0-7.8 [facility] Comment on above: Performed By: #### 2 [id number] #### [facility] Laboratory [address] [place] [address] Influenza A&B Agon Influenzae A Ag Negative Normal Negative [facility] Comment on above: Performed By: #### 1 [id number] #### [facility] [address] [place] [address] Influenzae B Ag Negative Normal Negative [facility] Comment on above: Result Comment: Test sensitivity and specificity vary for age group, specimen type, antigen types, and prevalence of disease. Test results must be evaluated in conjunction with other clinical data available to the physician. Individuals who received nasally administered Influenza A vaccine may have positive test results up to 3 days after vaccination. Performed By: #### 1 [id number] #### [facility] [address] [place] [address] Inpatient Clinical Summaryon 09-05-2024 Inpatient Clinical Summary Inpatient Clinical Summary [address] [address] Clinical Summary Person Information Name: TAWNYA HERRING Deysi/[facility] Age: 29 Years : 1995 Sex: Female PCP: DARWIN JONES CNP Marital Status: Single Phone: [phone] Race: White Ethnicity: Non- or Language: Vincentian Visit Id: Visit Reason: Abdominal pain - ; Vomiting - ; Syncope/Near syncope; PASSED OUT HIT HEAD,NAUSEA DIARRHEA VOMITING 30 WKS PREG Speciality: Acuity: Obs Enc Type: Observation Med Service: Obstetrics Arrival: 09/05/2024 03:02:46 Discharge: 09/05/2024 15:50:00 Dispo Type: Home (Routine DC) Address: [address] [place] [phone] Provider Notes: Diagnosis: Dehydration; Diarrhea, unspecified; Nausea, [...] range between ( 80.0 and 100.0 ) [place] Auto: 4.7 % -- Normal range between ( 4.0 and 14.0 ) MPV: 8.3 fL -- Normal range between ( 6.4 and 10.8 ) Neutro Auto: 87.6 % -- Normal range between ( 36.0 and 75.0 ) Platelet: 324.0 E9/L -- Normal range between ( 150.0 and 500.0 ) WBC: 15.6 E9/L -- Normal range between ( 4.0 and 11.0 ) [place] Absolute: 0.7 E9/L -- Normal range between [...] 38.19 kg/m2 (more content not included)... Normal [facility] Inpatient Patient Summaryon 09-05-2024 Inpatient Patient Summary Inpatient Patient Summary [address] [address] Patient Discharge Instructions PERSON INFORMATION Name: TAWNYA HERRING Date of : 1995 Current Date: 09/05/2024 16:15:55 PHYSICIANS Admitting Physician: Pham GALLAGHER, Rogelio Robins Primary Care Physician: DARWIN JONES CNP PCP Phone Number: [phone] Comment: Discharge Diagnosis: Dehydration; Diarrhea, unspecified; Nausea, [...] Follow up: With: Address: When: Brain WAY [facility], [address] [place] [address] [place] [address] [employer] (1) In 2 days 09/07/2024 Comments: Call 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 Medicines ??? Take xdzu-jng-khcftwd and prescription medicines only as told by [...] ? Flexing (more content not included)... Normal [facility] Lipase Levelon 09-05-2024 Lipase [Catalytic activity/Vol] 18 U/L Normal 13-58 [facility] Comment on above: Performed By: #### 2 [id number] #### [facility] Laboratory [address] [place] [address] MICRO OTHER TESTSOrdered By: Barrington Maxwell on 09-05-2024 Influenzae A Ag Negative (09/05/24 3:34 AM) Normal Negative [facility] [employer] Influenzae B Ag Negative 3 (09/05/24 3:34 AM) Normal Negative [facility] [employer] Comment on above: Interpretive Data: [...] Troponin HS 2.70 pg/mL Low 10.10-27.[address] [facility] Comment on above: Result Comment: The 95% CI (Confidence Interval) PPV (Positive Predictive Value) for myocardial infarction in females is 38 pg/mL, in males 51 pg/mL. The results should be used in conjunction with clinical conditions of myocardial infarction. (Access High Sensitivity Troponin I Instructions For Use, Nathen [place], March 2018) Performed By: #### 1 [id number] #### [facility] Laboratory [address] [place] [address] UA with Cult Rflxon 09-05-19 25 Bacteria Auto Ql (U) Trace Normal Trace Fish er [facility] Comment on above: Performed By: #### 4 [id number] #### [facility] [address] [place] [address] Bilirubin Ql (U) 1+ mg/dL Abnormal Negative [facility] Comment on above: Performed By: #### 4 [id number] #### [facility] [address] [place] [address] Clarity (U) Turbid Abnormal Clear [facility] Comment on above: Performed By: #### 4 [id number] #### [facility] [address] [place] [address] Color (U) Dark-Yellow Abnormal Yellow [facility] Comment on above: Result Comment: Micr oscopic readings are only performed on those samples that meet specific criteria set forth by [facility]. Performed By: #### 4 [id number] #### [facility] [address] [place] [address] Epithelial cells.squamous Auto (Urine sed) [#/Area] 5-[address] [facility] Comment on above: Performed By: #### 4 [id number] #### [facility] [address] [place] [address] Glucose Ql (U) Trace Abnormal Negative [facility] Comment on above: Performed By: #### 4 [id number] #### [facility] [address] [place] [address] Hemoglobin Auto test strip (U) [Mass/Vol] Negative Normal Negative [facility] Comment on above: Performed By: #### 4 [id number] #### [facility] [address] [place] [address] Ketones Auto test strip Ql (U) 1+ mg/dL Abnormal Negative [facility] Comment on above: Performed By: #### 4 [id number] #### [facility] [address] [place] [address] Leukocyte esterase Auto test strip Ql (U) 25 Chaparrita/uL Normal Negative [facility] Comment on above: Performed By: #### 4 [id number] #### [facility] [address] [place] [address] Mucus Auto Ql (U) 4+ [id number] Abnormal Negative [facility] Comment on above: Performed By: #### 4 [id number] #### [facility] [address] [place] [address] Nitrite Auto test strip Ql (U) 1+ mg/dL Abnormal Negative [facility] Comment on above: Performed By: #### 4 [id number] #### [facility] [address] [place] [address] pH (U) 5.5 [pH] Invalid Interpretation Code 5.0-9.0 [facility] Comment on above: Performed By: #### 4 [id number] #### [facility] [address] [place] [address] Protein Ql (U) 1+ mg/dL Abnormal Negative [facility] Comment on above: Performed By: #### 4 [id number] #### [facility] [address] [place] [address] RBC Ql (U) 0-3 Normal 0-3 [facility] Comment on above: Performed By: #### 4 [id number] #### [facility] [address] [place] [address] Specific gravity (U) [Rel density] 1.029 Invalid Interpretation Code 1.005-1.[address] [facility] Comment on above: Performed By: #### 4 [id number] #### [facility] [address] [place] [address] Urobilinogen (U) [Mass/Vol] 2 mg/dL Abnormal Negative [facility] Comment on above: Performed By: #### 4 [id number] #### [facility] [address] [place] [address] WBC Auto (Urine sed) [#/Area] 0-5 Normal 0-5 [facility] Comment on above: Performed By: #### 4 [id number] #### [facility] [address] [place] [address] Type of Urine collection method Clean Catch Normal [facility] Comment on above: Performed By: #### 4 [id number] #### [facility] [address] [place] [address] URINALYSISOrdered By: SYSTEM SYSTEM on 09-05-2024 Bacteria [...] that meet specific criteria set forth by [facility]. Epithelial cells.squamous Auto (Urine sed) [#/Area] [...] 1+ mg/dL Invalid Interpretation Code Negativemg /dL [facility] UA Auto SS RBC Ql (U) 0-3 graded/HPF Normal 0-3graded/ HPF [facility] UA Auto SS Specific gravity (U) [Rel density] 1.029 *NA* (09/05/24 5:25 AM) Invalid Interpretation Code 1.005 - 1.030 [facility] UA Auto SS Urobilinogen (U) [Mass/Vol] 2 mg/dL Invalid Interpretation Code Negativemg /dL [facility] UA Auto SS WBC Auto (Urine sed) [#/Area] 0-5 graded/HPF Normal 0-5graded/ HPF [facility] UA Auto SS URINALYSISOrdered By: Rica Islas on 09-05-2024 UA Spec Desc Clean Catch (09/05/24 5:25 AM) Normal [facility] UA Auto SS eGFRon 09-05-2024 eGFR 138 mL/min/1.73 m2 Normal >=59 [facility] Comment on above: Performed By: #### 1 [id number] #### [facility] Laboratory [address] [place] [address] ALL CBC WITH AUTO DIFFon BASOPHILS ABSOLUTE AUTO 0 [facility] Basophils/100 WBC (Bld) 0.2 % 0.2 - 2.0 % [facility] Eosinophils/100 WBC (Bld) 0.8 % Low 0.9 - 7.0 % [facility] Erythrocyte distribution width (RBC) [Ratio] 12.1 % 11.0 - 15.0 % [facility] Hematocrit (Bld) [Volume fraction] 33.9 % Low 36.0 - 48.0 % [facility] Hemoglobin (Bld) [Mass/Vol] 11.6 g/dL Low 12.0 - 16.0 g/dL [facility] IMMATURE GRANULOCYTES ABS AUTO 0.03 [facility] Immature granulocytes/100 WBC (Bld) 0.3 % 0.0 - 0.5 % [facility] Interpretation and review of laboratory results Abnormal [facility] LYMPHOCYTES ABSOLUTE AUTO 1.8 [facility] Lymphocytes/100 WBC (Bld) 19.8 % Low 20.5 - 60.0 % [facility] MCH (RBC) [Entitic mass] 32.9 pg 26.7 - 34.0 pg [facility] MCHC (RBC) [Mass/Vol] 34.2 g/dL 29.9 - 35.2 g/dL [facility] MCV (RBC) [Entitic vol] 96 fL 81.0 - 99.0 fL [facility] MONOCYTES ABSOLUTE AUTO 0.5 [facility] Monocytes/100 WBC (Bld) 5.4 % 1.7 - 12.0 % [facility] NEUTROPHILS ABSOLUTE AUTO 6.6 High [facility] Neutrophils/100 WBC (Bld) 73.5 % 43.0 - 75.0 % [facility] Platelet mean volume (Bld) [Entitic vol] 10.2 fL 9.5 - 13.5 fL [facility] TBH EO # 0.1 [facility] PLT 287 [facility] RBC 3.53 Low [facility] WBC 9 [facility] Basophils Auto (Bld) [#/Vol] on 08-25-2024 Basophils (Bld) [#/Vol] Automated basophil count 0.0-0.1 [facility] Basophils/100 WBC Auto (Bld) on 08-25-2024 Basophils/100 WBC (Bld) Automated basophil % 0.2-2.0 [facility] Eosinophils/100 WBC Auto (Bl d)on 08-25-2024 Eosinophils/100 WBC (Bld) Automated eosinophil % Low 0.9-7.0 [facility] Erythrocyte distribution wid th Auto (RBC) [Ratio]on 08-25-2024 Erythrocyte distribution width (RBC) [Ratio] Erythrocyte distribution width [Ratio] by Automated count 11.0-15.0 [facility] FPG ECG *CARDIOLOGY ONLY*on 08-25-2024 FPG ECG *CARDIOLOGY ONLY* [facility] [place] [address] Electrocardiograph Report Signed Patient: Tawnya Herring MR#: [id number] 29 : 1995 Acct:[id number] Age/Sex: 29 / F ADM Date: 08/25/24 Loc: EKGCARDIO Room: Type: [facility] Attending Dr: Mary Ellen Bruce MD [...] Normal ECG Confirmed by Mary Ellen Bruce ([id number]) on 08/25/2024 1:42:57 PM Referred By: Electronically Signed By: Mary Ellen Bruce Transcribed By: MUS Signed By Mary Ellen Bruce MD 5 1342 Normal [facility] Hematocrit Auto (Bld) [Volum e fraction]on 08-25-2024 Hematocrit (Bld) [Volume fraction] Hematocrit [Volume Fraction] of Blood by Automated count Low 36.0-48.0 [facility] Hemoglobin [Mass/volume] in Bloodon 08-25-2024 Hemoglobin (Bld) [Mass/Vol] Hemoglobin [Mass/volume] in Blood Low 12.0-16.0 [facility] Laboratory - Chemistry and C hemistry - challengeon 08-25-2024 Glucose [Mass/Vol] 131 mg/dL High <130 [facility] Laboratory - Hematology and Cell countson 08-25-2024 Immature granulocytes/100 WBC (Bld) 0.3 % 0.0-0.5 [facility] Leukocytes [#/volume] correc hamilton for nucleated erythrocytes in Blood by Automated counon 08-25-2024 WBC corrected for nucl RBC Auto (Bld) [#/Vol] Leukocytes [#/volume] corrected for nucleated erythrocytes in Blood by Automated coun 4.0-11.0 [facility] Lymphocytes Auto (Bld) [#/Vo l]on 08-25-2024 Lymphocytes (Bld) [#/Vol] Lymphocytes [#/volume] in Blood by Automated count 1.2-3.8 [facility] Lymphocytes/100 WBC Auto (Bl d)on 08-25-2024 Lymphocytes/100 WBC (Bld) Lymphocytes/100 leukocytes in Blood by Automated count Low 20.5-60.0 [facility] MCH Auto (RBC) [Entitic mass ]on 08-25-2024 MCH (RBC) [Entitic mass] MCH [Entitic mass] by Automated count 26.7-34.0 [facility] MCHC Auto (RBC) [Mass/Vol]on 08-25-2024 MCHC (RBC) [Mass/Vol] MCHC [Mass/volume] by Automated count 29.9-35.2 [facility] MCV Auto (RBC) [Entitic vol] on 08-25-2024 MCV (RBC) [Entitic vol] MCV [Entitic volume] by Automated count 81.0-99.0 [facility] Monocytes Auto (Bld) [#/Vol] on 08-25-2024 Monocytes (Bld) [#/Vol] Automated blood monocyte count 0.3-0.8 [facility] Monocytes/100 WBC Auto (Bld) on 08-25-2024 Monocytes/100 WBC (Bld) Automated monocyte % 1.7-12.0 [facility] Neutrophils Auto (Bld) [#/Vo l]on 08-25-2024 Neutrophils (Bld) [#/Vol] Neutrophils [#/volume] in Blood by Automated count High 1.4-6.5 [facility] Neutrophils/100 WBC Auto (Bl d)on 08-25-2024 Neutrophils/100 WBC (Bld) Automated neutrophil % 43.0-75.0 [facility] No Panel Informationon 08-25 Eosinophils # (Auto) 0.1 10 3/uL 0.0-0.7 [facility] Immature Granulocyte # (Auto) 0.03 10 3/uL 0.00-0.03 [facility] Platelet mean volume Auto (B ld) [Entitic vol]on 08-25-2024 Platelet mean volume (Bld) [Entitic vol] Platelet mean volume [Entitic volume] in Blood by Automated count 9.5-13.5 [facility] Platelets Auto (Bld) [#/Vol] on 08-25-2024 Platelets (Bld) [#/Vol] Platelets [#/volume] in Blood by Automated count 150-450 [facility] RBC Auto (Bld) [#/Vol]on RBC (Bld) [#/Vol] Erythrocytes [#/volu me] in Blood by Automated count Low 4.20-5.40 [facility] Urinalysis macro (dipstick) panel (U)on 08-23-2024 Bilirubin, UA Negative Negative - 4(70) +++ mg/dL [facility] Blood, UA Negative Negative - 50 Dain/mcL [facility] Clarity, UA Clear [facility] Color, UA Yellow [facility] Glucose, UA Negative Negative - 1999(110) ++++ mg/dL [facility] Interpretation and review of laboratory results Abnormal [facility] Ketones, UA Negative Negative - 160(16) ++++ mg/dL [facility] Leukocytes, UA Positive Negative - 500+++ Chaparrita/mcL [facility] Comment on above: small Nitrite, UA Negative Negative - Positive [facility] pH, UA 7 5 - 9 [facility] Protein, UA Negative Negative - 1999(20) ++++ mg/dL [facility] Spec Grav, UA 1.02 1 - 1.03 [facility] Urobilinogen, UA 0.2 0.2 - 12 mg/dL [facility] Thyroid Stimulating Hormoneo n 07-31-2024 TSH Qn 2.07 m[IU]/L Normal 0.45-5.33 [facility] Comment on above: Result Comment: PERF ORMED BY: [facility] [address] [place] [address] PATHOLOGIST FLIGHT TECHNICIAN MIS SCHMIDT M.D. Performed By: #### T SH3 ####[facility] [id number] [id number] [facility] Thyrotropin [Units/volume] i n Serum or PlasmaOrdered By: Brain Way on 07-31-2024 TSH Qn Thyrotropin [Units/v olume] in Serum or Plasma 0.45-5.33 [facility] Urinalysis macro (dipstick) panel (U)on 07-11-2024 Bilirubin, UA Negative Negative - 4(70) +++ mg/dL [facility] Blood, UA Negative Negative - 50 Dain/mcL [facility] Clarity, UA Clear [facility] Color, UA Yellow [facility] Glucose, UA Negative Negative - 1999(110) ++++ mg/dL [facility] Interpretation and review of laboratory results Abnormal [facility] Ketones, UA Negative Negative - 160(16) ++++ mg/dL [facility] Leukocytes, UA Trace Negative - 500+++ Chaparrita/mcL [facility] Nitrite, UA Negative Negative - Positive [facility] pH, UA 6 5 - 9 [facility] Protein, UA Negative Negative - 2000(20) ++++ mg/dL [facility] Spec Grav, UA 1.01 1 - 1.03 [facility] Urobilinogen, UA 0.2 0.2 - 12 mg/dL [facility] Alpha-fetoprotein (AFP) luis urement ([id number])Ordered By: Brain Way on 06-28-2024 AFP [MoM] Alpha-fetoprotein (A FP) measurement ([id number]) . [facility] Determination of gestational ageOrdered By: Brain Way on 06-28-2024 Gestational age Assess gestational age . [facility] Estimation of maternal age-s pecific risk of Down syndrome birthOrdered By: Brain Way on 06-28-2024 Age [Time] Estimation of matern al age-specific risk of Down syndrome . [facility] Human chorionic gonadotropin (hCG) multiple of median measurementOrdered By: Brain Way on 06-28-2024 HCG [MoM] Human chorionic gonadotropin (hCG) multiple of median measurement . [facility] Insulin dependent diabetes m ellitus detectionOrdered By: Brain Way on 06-28-2024 Insulin dependent diabetes mellitus Ql Insulin dependent diabetes mellitus detection . [facility] Interpretation of serum or p lasma second trimester quad maternal screen (narrative reOrdered By: Brain Way on 06-28-2024 Second trimester quad maternal screen Mathew [Interp] Interpretation of serum or plasma second trimester quad maternal screen (narrative re . [facility] Comment on above: Interpretation:An in terpretation CANNOT be provided for this patientbecause necessary patient information was not provided (oneor more of: gestational age, weight, or patient age).Please call us with new clinical information.Recalculations are not recommended when gestational datingby LMP and ultrasound are within 10 days. No Panel InformationOrdered By: Brain Way on 06-28-2024 AFP Triple Screen Comment Comment . [facility] Comment on above: Stephanie Pinto , Ph.D., DABCCDirectorReferences: Available Upon Request.Multiples Of Median Cutoffs Abbreviation Definitions For AFP Elevations IDD- Insulin Dep DiabetesSingleton 2.5 Black 2.8 OSBR- Open Spina BifidaIDD 2.0 Twins 4.5 RiskDSR Cutoff 1:270 DSR- Down Syndrome RiskT18 Cutoff 1:100 T18- Trisomy 18For further inquiries contact [facility] [employer] Servicesat [phone].This test was developed and its performance characteristicsdetermined by [facility]. It has not been cleared or approvedby the Food and Drug Administration.Performed at: [facility] [id number] [place], [place] [id number] Director: Aubrey Moreno [facility], Phone: [phone] Alpha Fetoprotein Results Received Report . [facility] Down Syndrome Age Equivalent See interpretation. . [facility] Gestational Age Calculation Method Ultrasound . [facility] Comment on above: 18:5 on 06/12/2024 Maternal Quad Test Risk See interpretation. . [facility] Maternal Race . [facility] Multiple No . [facility] Serum or plasma etuug-1-lpls protein measurement (mass/volume)Ordered By: Brain Way on 06-28-2024 AFP [Mass/Vol] Serum or plasma [id number] measurement (mass/volume) . [facility] Serum or plasma inhibin A me asurement (adjusted zyjpbsiw-ec-tgachk)Ordered By: Brain Way on 06-28-2024 Inhibin A adjusted [MoM] Serum or plasma inhibin A measurement (adjusted iejpvmfv-[id number]) . [facility] Serum or plasma inhibin A me asurement (mass/volume)Ordered By: Brain Way on 06-28-2024 Inhibin A [Mass/Vol] Inhibin A [Mass/vol ume] in Serum or Plasma . [facility] Serum or plasma total combin ed intact choriogonadotropin and beta subunit measurementOrdered By: Brain Way on 06-28-2024 HCG.intact+Beta subunit Qn Serum or plasma total combined intact choriogonadotropin and beta subunit measurement . [facility] Serum or plasma unconjugated estriol (E3) measurement (adjusted ifzclsms-qn-xcslwd)Ordered By: Brain Way on 06-28-2024 E3.unconjugated adjusted [MoM] Serum or plasma unconjugated estriol (E3) measurement (adjusted ttgbgkew-mu-janega) . [facility] Serum or plasma unconjugated estriol (E3) measurement (mass/volume)Ordered By: Brain Way on 06-28-2024 E3.unconjugated [Mass/Vol] Serum or plasma unconjugated estriol (E3) measurement (mass/volume) . [facility] Thyroid Stimulating Hormoneo n 06-28-2024 TSH Qn 3.44 m[IU]/L Normal 0.45-5.33 [facility] Comment on above: Result Comment: PERF ORMED BY: [place] [address] PATHOLOGIST FLIGHT TECHNICIAN JORDI SMITH M.D. Performed By: #### T SH3 #### [address] Thyrotropin [Units/volume] i n Serum or PlasmaOrdered By: Brain Way on 06-28-2024 TSH Qn Thyrotropin [Units/v olume] in Serum or Plasma 0.45-5.33 [facility] Trisomy 21 risk determinatio n in fetusOrdered By: Brain Way on 06-28-2024 Trisomy 21 risk Qn (fetus) Trisomy 21 risk determination in fetus . [facility] US OB >= 14 weeks Fetuson US OB >= 14 weeks Fetus [facility] [place] [address] Ultrasound Report Signed Patient: Tawnya Herring MR#: [id number] 29 : 1995 Acct:[id number] Age/Sex: 28 / F ADM Date: 06/22/24 Loc: Room: Type: [facility] Attending Dr: Barin Way DO Ordering Provider: Brain Way Date [...] Norton Jr., D.O.06/22/2024 4:00 PM Dictation Location: [employer] Tech: Rae De Paz Transcribed By: AGUILAR 06/22/24 1600 Dictated By: Zay Norton Jr, DO 06/22/24 1552 Signed By: 06/22/24 1600 Normal [facility] Urinalysis macro (dipstick) panel (U)on 06-12-2024 Bilirubin, UA Negative Negative - 4(70) +++ mg/dL [facility] Blood, UA Negative Negative - 50 Dain/mcL [facility] Clarity, UA Clear [facility] Color, UA Yellow [facility] Glucose, UA Negative Negative - 2000(110) ++++ mg/dL [facility] Interpretation and review of laboratory results Abnormal [facility] Ketones, UA Negative Negative - 160(16) ++++ mg/dL [facility] Leukocytes, UA Positive Negative - 500+++ Chaparrita/mcL [facility] Comment on above: small Nitrite, UA Negative Negative - Positive [facility] pH, UA 6 5 - 9 [facility] Protein, UA Negative Negative - 1999(20) ++++ mg/dL [facility] Spec Grav, UA 1.025 1 - 1.03 [facility] Urobilinogen, UA 1.0 0.2 - 12 mg/dL [facility] Thyrotropin [Units/volume] i n Serum or PlasmaOrdered By: Brain Way on 05-24-2024 TSH Qn 2.42 m[IU]/L Normal 0.45-5.33 [facility] Comment on above: Result Comment: PERF ORMED BY: [place] [address] PATHOLOGIST FLIGHT TECHNICIAN JORDI SMITH M.D. Performed By: #### T SH3 #### [address] TSH Qn Thyrotropin [Units/v olume] in Serum or Plasma 0.45-5.33 [facility] Urinalysis macro (dipstick) panel (U)on 05-10-2024 Bilirubin, UA Negative Negative - 4(70) +++ mg/dL [facility] Blood, UA Negative Negative - 50 Dain/mcL [facility] Clarity, UA Clear [facility] Color, UA Yellow [facility] Glucose, UA Negative Negative - 1999(110) ++++ mg/dL [facility] Interpretation and review of laboratory results Normal [facility] Ketones, UA Negative Negative - 160(16) ++++ mg/dL [facility] Leukocytes, UA Negative Negative - 500+++ Chaparrita/mcL [facility] Nitrite, UA Negative Negative - Positive [facility] pH, UA 6.5 5 - 9 [facility] Protein, UA Negative Negative - 1999(20) ++++ mg/dL [facility] Spec Grav, UA 1.020 1 - 1.03 [facility] Urobilinogen, UA 1.0 0.2 - 12 mg/dL [facility] IGP,APTIMA HPV,AGE GDLNon AGE GDLN ACOG TESTING Note . [facility] Comment on above: TESTS RESULT FLAG UN ITS REF RANGE LAB Clinician Provided Cytology Information Source.............Cervix No. of containers..01 ThinPrep Vial Age Shweta BARLOW Mariel... FLAG LEGEND: L-Low Normal,H-High Normal,LL-Alert Low,HH-Alert High <-Panic Low,>-Panic High,A-Abnormal,AA-Critical Abnormal Performed at: 01 =G [address] [id number] Christelle Galan MD, IGP, RFX APTIMA HPV ASCU Note . [facility] Comment on above: TESTS RESULT FLAG UN ITS REF RANGE LAB DIAGNOSIS: 02 NEGATIVE FOR INTRAEPITHELIAL LESION OR MALIGNANCY. Specimen adequacy: 02 Satisfactory for evaluation. Endocervical and/or squamous metaplastic cells (endocervical component) are present. Performed by: Sanjiv Ornelas, Dip Tanker . 02 Note: Note 02 The Pap [...] <-Panic Low,>-Panic High,A-Abnormal,AA-Critical Abnormal Performed at: [address] [id number] Christelle Galan MD, Performed at: = - [address] [id number] Electric Trucker: Christelle Galan MD, Phone: [phone] Performed at: [address] [id number] Electric Trucker: Christelle Galan MD, Phone: [phone] [facility] URETHRITIS/DISCHARGE PLUS VA GINITIS (HTRX)on 04-22-2024 [...] 0.000 [facility] JANET KRUSEI Not detected [facility] CHLAMYDIA TRACHOMATIS 0.000 [facility] CHLAMYDIA TRACHOMATIS Not detected [facility] GARDNERELLA VAGINALIS 0.000 [facility] GARDNERELLA VAGINALIS Not detected [facility] Interpretation and review of laboratory results Abnormal [facility] MEGASPHAERA (TYPES 1, 2) 0.000 [facility] MEGASPHAERA (TYPES 1, 2) Not detected [facility] MYCOPLASMA GENITALIUM 0.000 [facility] MYCOPLASMA GENITALIUM Not detected [facility] NEISSERIA GONORRHOEAE 0.000 [facility] NEISSERIA GONORRHOEAE Not detected [facility] TRICHOMONAS VAGINALIS 0.000 [facility] TRICHOMONAS VAGINALIS Not detected N [facility] Urinalysis macro (dipstick) panel (U)on 04-20-2024 Bilirubin, UA Negative Negative - 4(70) +++ mg/dL [facility] Blood, UA Positive Negative - 50 Dain/mcL [facility] Comment on above: trace-intact Clarity, UA Clear [facility] Color, UA Yellow [facility] Glucose, UA Negative Negative - 2000(110) ++++ mg/dL [facility] Interpretation and review of laboratory results Abnormal [facility] Ketones, UA Negative Negative - 160(16) ++++ mg/dL [facility] Leukocytes, UA Trace Negative - 500+++ Chaparrita/mcL [facility] Nitrite, UA Negative Negative - Positive [facility] pH, UA 6.0 5 - 9 [facility] Protein, UA Negative Negative - 2000(20) ++++ mg/dL [facility] Spec Grav, UA 1.030 1 - 1.03 [facility] Urobilinogen, UA 0.2 0.2 - 12 mg/dL [facility] CBC without diffon Hematocrit (Bld) [Volume fraction] 37.3 % [facility] Hemoglobin (Bld) [Mass/Vol] 13.3 g/dL [facility] Rbc Mcv (Fl) By Automated Count 92.1 [facility] No Panel Informationon 04-13 [facility] Rubella IGG immune statuson 04-13-2024 Rubella immune IgG 1.33 [facility] Syphilis Total(Unknown Syphi lis Status)on 04-13-2024 Syphilis Non-Reactive [facility] TBH BOX TEST SENT OUTon 03-17 BOX TEST SENT OUT 04/13/24 [facility] Drug Screen, Urineon 024 Amphetamine/Methamphe tamine Negative [facility] Barbiturate Screen Urine Negative [facility] Benzodiazepine Screen, Urine Negative [facility] Cocaine Metabolite Negative [facility] Methadone,Meconium Negative [facility] Opiate Quantitative Urine Negative [facility] Oxycodone Negative [facility] Phencyclidine Negative [facility] Thc Marijuana, Urine Negative [facility] HCG ( test) Ql (U)o n 04-07-2024 Interpretation and review of laboratory results Abnormal [facility] Preg Test, Ur Positive [facility] Urinalysis macro (dipstick) panel (U)on 04-07-2024 Bilirubin, UA Negative Negative - 4(70) +++ mg/dL [facility] Blood, UA Negative Negative - 50 Dain/mcL [facility] Clarity, UA Clear [facility] Color, UA Yellow [facility] Glucose, UA Negative Negative - 1999(110) ++++ mg/dL [facility] Interpretation and review of laboratory results Abnormal [facility] Ketones, UA Negative Negative - 160(16) ++++ mg/dL [facility] Leukocytes, UA Positive Negative - 500+++ Chaparrita/mcL [facility] Comment on above: small Nitrite, UA Negative Negative - Positive [facility] pH, UA 7.0 5 - 9 [facility] Protein, UA Negative Negative - 1999(20) ++++ mg/dL [facility] Spec Grav, UA 1.025 1 - 1.03 [facility] Urobilinogen, UA 0.2 0.2 - 12 mg/dL [facility] Automated basophil %Ordered By: Addi Ortega on 04-06-2024 Basophils/100 WBC (Bld) 0.2 % Normal . [facility] Comment on above: Performed By: #### P ILLAR TSH, PILLAR LIPID, PILLAR CBC, PILLAR BMP #### [facility] [address] Automated basophil countOrde red By: Addi Ortega on 04-06-2024 Basophils (Bld) [#/Vol] 0.0 10*3/uL Normal 0.0-0.2 [facility] Comment on above: Result Comment: PERF ORMED BY: [place] [address] PATHOLOGIST FLIGHT TECHNICIAN JORDI SMITH M.D. Performed By: #### P ILLAR TSH, PILLAR LIPID, PILLAR CBC, PILLAR BMP #### [address] Automated blood monocyte cou ntOrdered By: Addi Ortega on 04-06-2024 Monocytes (Bld) [#/Vol] 0.5 10*3/uL Normal 0.0-0.8 [facility] Comment on above: Performed By: #### P ILLAR TSH, PILLAR LIPID, PILLAR CBC, PILLAR BMP #### [address] Automated eosinophil %Ordere d By: Addi Ortega on 04-06-2024 Eosinophils/100 WBC (Bld) 0.5 % Normal . [facility] Comment on above: Performed By: #### P ILLAR TSH, PILLAR LIPID, PILLAR CBC, PILLAR BMP #### [facility] [address] [place] [address] Automated eosinophil countOr dered By: Addi Ortega on 04-06-2024 Eosinophils (Bld) [#/Vol] 0.0 10*3/uL Normal 0.0-0.45 [facility] Comment on above: Performed By: #### P ILLAR TSH, PILLAR LIPID, PILLAR CBC, PILLAR BMP #### [facility] [address] [place] [address] Automated monocyte %Ordered By: Addi Ortega on 04-06-2024 Monocytes/100 WBC (Bld) 5.6 % Normal . [facility] Comment on above: Performed By: #### P ILLAR TSH, PILLAR LIPID, PILLAR CBC, PILLAR BMP #### [facility] [address] [place] [address] Automated neutrophil %Ordere d By: Addi Ortega on 04-06-2024 Neutrophils/100 WBC (Bld) 64.9 % Normal . [facility] Comment on above: Performed By: #### P ILLAR TSH, PILLAR LIPID, PILLAR CBC, PILLAR BMP #### [facility] [address] [place] [address] [place] Basophils Auto (Bld) [#/Vol] Ordered By: Addi Ortega on 04-06-2024 Basophils (Bld) [#/Vol] Automated basophil count 0.0-0.2 [facility] Basophils/100 WBC Auto (Bld) Ordered By: Addi Ortega on 04-06-2024 Basophils/100 WBC (Bld) Automated basophil % . [facility] Calcium [Mass/volume] in Ser um or PlasmaOrdered By: Addi Ortega on 04-06-2024 Calcium [Mass/Vol] 8.9 mg/dL Normal 8.6-10.3 [facility] Comment on above: Performed By: #### P ILLAR TSH, PILLAR LIPID, PILLAR CBC, PILLAR BMP #### [place] [id number] [facility] Calcium [Mass/Vol] Calcium [Mass/volume ] in Serum or Plasma 8.6-10.3 [facility] Carbon dioxide, total [Moles /volume] in Serum or PlasmaOrdered By: Addi Ortega on 04-06-2024 CO2 [Moles/Vol] 22.0 mmol/L Normal 21.0-31.0 [facility] Comment on above: Performed By: #### P ILLAR TSH, PILLAR LIPID, PILLAR CBC, PILLAR BMP #### [place] [id number] [facility] CO2 [Moles/Vol] Carbon dioxide, tota l [Moles/volume] in Serum or Plasma 21.0-31.0 [facility] Chloride [Moles/volume] in S ghada or PlasmaOrdered By: Addi Ortega on 04-06-2024 Chloride [Moles/Vol] 106 mmol/L Normal 98-107 [facility] Comment on above: Performed By: #### P ILLAR TSH, PILLAR LIPID, PILLAR CBC, PILLAR BMP #### [facility] [address] [place] [address] [place] Chloride [Moles/Vol] Chloride [Moles/vol ume] in Serum or Plasma 98-107 [facility] Cholesterol [Mass/volume] in Serum or PlasmaOrdered By: Addi Ortega on 04-06-2024 Cholesterol [Mass/Vol] 159 mg/dL Normal 140-200 [facility] Comment on above: Chol less than 200 m g/dl low riskChol 201-239 mg/dl borderline riskChol 240 mg/dl and greater high risk Result Comment: Chol less than 200 mg/dl low risk Chol 201-239 mg/dl borderline risk Chol 240 mg/dl and greater high risk Performed By: #### P ILLAR TSH, PILLAR LIPID, PILLAR CBC, PILLAR BMP #### [facility] [address] [place] [address] [place] Cholesterol [Mass/Vol] Cholesterol [Mass/volume] in Serum or Plasma 140-200 [facility] Comment on above: Chol less than 200 m g/dl low riskChol 201-239 mg/dl borderline riskChol 240 mg/dl and greater high risk Cholesterol in HDL [Mass/vol ume] in Serum or PlasmaOrdered By: Addi Ortega on 04-06-2024 Cholesterol in HDL [Mass/Vol] Serum or plasma high density lipoprotein (HDL) cholesterol measurement 23- [facility] Comment on above: HDL CHOL ATP-III CLA SSIFICATION Cardiovascular RiskHDL > or equal to 60 mg/dL LOWHDL < 40 mg/dL HIGH Cholesterol in LDL Calc [Mas s/Vol]Ordered By: Addi Ortega on 04-06-2024 Cholesterol in LDL [Mass/Vol] 95 mg/dL 0-100 [facility] Comment on above: LDL ATP III CLASSIFI CATIONLDL less than 100 mg/dL OptimalLDL 100-129 mg/dL Near or above optimalLDL 130-159 mg/dL Borderline highLDL 160-189 mg/dL HighLDL greater than 189 mg/dL Very high Cholesterol in LDL [Mass/Vol] Cholesterol in LDL [Mass/volume] in Serum or Plasma by calculation 0-100 [facility] Comment on above: LDL ATP III CLASSIFI CATIONLDL less than 100 mg/dL OptimalLDL 100-129 mg/dL Near or above optimalLDL 130-159 mg/dL Borderline highLDL 160-189 mg/dL HighLDL greater than 189 mg/dL Very high Cholesterol in VLDL Calc [Ma ss/Vol]Ordered By: Addi Ortega on 04-06-2024 Cholesterol in VLDL [Mass/Vol] 15 mg/dL [facility] Cholesterol in VLDL [Mass/Vol] Cholesterol in VLDL [Mass/volume] in Serum or Plasma by calculation [facility] Creatinine [Mass/volume] in Serum or PlasmaOrdered By: Addi Ortega on 04-06-2024 Creatinine [Mass/Vol] 0.44 mg/dL Low 0.60-1.20 [facility] Comment on above: Performed By: #### P ILLAR TSH, PILLAR LIPID, PILLAR CBC, PILLAR BMP #### [address] Creatinine [Mass/Vol] Creatinine [Mass/v olume] in Serum or Plasma Low 0.60-1.20 [facility] Employee Basic Metabolic Suero nargis 04-06-2024 GFR/1.73 sq M.predicted MDRD (S/P/Bld) [Vol rate/Area] mL/min/{1.73_m2} Normal [facility] Comment on above: Performed By: #### P ILLAR TSH, PILLAR LIPID, PILLAR CBC, PILLAR BMP #### [address] Employee Complete Blood Coun ton 04-06-2024 Mean Corpuscular HGB Conc 35.4 g/dL High 32.0-35.0 [facility] Comment on above: Performed By: #### P ILLAR TSH, PILLAR LIPID, PILLAR CBC, PILLAR BMP #### [address] NRBC% 0.0 /100{WBC} Normal 0-0.5 [facility] Comment on above: Performed By: #### P ILLAR TSH, PILLAR LIPID, PILLAR CBC, PILLAR BMP #### [address] Employee Lipid Profileon LDL Cholesterol,Calculate d 95 mg/dL Normal 0-100 [facility] Comment on above: Result Comment: LDL ATP III CLASSIFICATION LDL less than 100 mg/dL Optimal LDL 100-129 mg/dL Near or above optimal LDL 130-159 mg/dL Borderline high LDL 160-189 mg/dL High LDL greater than 189 mg/dL Very high Performed By: #### P ILLAR TSH, PILLAR LIPID, PILLAR CBC, PILLAR BMP #### [facility] [address] Triglyceride w/Reflex 79 mg/dL Normal 0-149 [facility] Comment on above: Result Comment: TRIG ATP III CLASSIFICATION TRIG less than 150 mg/dL Normal TRIG 150-199 mg/dL Borderline high TRIG 200-500 mg/dL High TRIG greater than 500 mg/dL Very high Standard traceable to the Center for Disease Conrtrol and Prevention (CDC) test method. Performed By: #### P ILLAR TSH, PILLAR LIPID, PILLAR CBC, PILLAR BMP #### [facility] [address] VLDL CHOLESTEROL 15 mg/dL Normal [facility] Comment on above: Performed By: #### P ILLAR TSH, PILLAR LIPID, PILLAR CBC, PILLAR BMP #### [facility] [address] Employee Thyroid Stim Hormon gokul 04-06-2024 Employee Thyroid Stim Hormone 2.72 u[iU]/mL Normal 0.45-5.33 [facility] Comment on above: Result Comment: PERF ORMED BY: [place] [address] PATHOLOGIST FLIGHT TECHNICIAN JORDI SMITH M.D. Performed By: #### P ILLAR TSH, PILLAR LIPID, PILLAR CBC, PILLAR BMP #### [facility] [address] [place] [address] [place] Eosinophils Auto (Bld) [#/Vo l]Ordered By: Addi Ortega on 04-06-2024 Eosinophils (Bld) [#/Vol] Automated eosinophil count 0.0-0.45 [facility] Eosinophils/100 WBC Auto (Bl d)Ordered By: Addi Ortega on 04-06-2024 Eosinophils/100 WBC (Bld) Automated eosinophil % . [facility] Erythrocyte distribution wid th Auto (RBC) [Ratio]Ordered By: Addi Ortega on 04-06-2024 Erythrocyte distribution width (RBC) [Ratio] Erythrocyte distribution width [Ratio] by Automated count 11.9-15.3 [facility] Erythrocyte distribution wid th [Ratio] by Automated countOrdered By: Addi Ortega on 04-06-2024 Erythrocyte distribution width (RBC) [Ratio] 12.7 % Normal 11.9-15.3 [facility] Comment on above: Performed By: #### P ILLAR TSH, PILLAR LIPID, PILLAR CBC, PILLAR BMP #### [facility] [address] [place] [address] [place] Erythrocytes [#/volume] in B lood by Automated countOrdered By: Addi Ortega on 04-06-2024 RBC (Bld) [#/Vol] 4.04 10*6/uL Normal 3.60-5.00 [facility] Comment on above: Performed By: #### P ILLAR TSH, PILLAR LIPID, PILLAR CBC, PILLAR BMP #### [facility] [address] [place] [address] [place] Glucose [Mass/volume] in Ser um or PlasmaOrdered By: Addi Ortega on 04-06-2024 Glucose [Mass/Vol] 82 mg/dL Normal 70-100 [facility] Comment on above: Performed By: #### P ILLAR TSH, PILLAR LIPID, PILLAR CBC, PILLAR BMP #### [facility] [address] [place] [address] [place] Glucose [Mass/Vol] Glucose [Mass/volume ] in Serum or Plasma 70-100 [facility] Hematocrit Auto (Bld) [Volum e fraction]Ordered By: Addi Ortega on 04-06-2024 Hematocrit (Bld) [Volume fraction] Hematocrit [Volume Fraction] of Blood by Automated count 34.0-46.4 [facility] Hematocrit [Volume Fraction] of Blood by Automated countOrdered By: Addi Ortega on 08-22-2024 Hematocrit (Bld) [Volume fraction] 37.6 % Normal 34.0-46.4 [facility] Comment on above: Performed By: #### P ILLAR TSH, PILLAR LIPID, PILLAR CBC, PILLAR BMP #### [facility] [address] Hemoglobin [Mass/volume] in BloodOrdered By: Addi Ortega on 04-06-2024 Hemoglobin (Bld) [Mass/Vol] 13.3 g/dL Normal 11.8-15.4 [facility] Comment on above: Performed By: #### P ILLAR TSH, PILLAR LIPID, PILLAR CBC, PILLAR BMP #### [facility] [address] Hemoglobin (Bld) [Mass/Vol] Hemoglobin [Mass/volume] in Blood 11.8-15.4 [facility] Leukocytes [#/volume] correc hamilton for nucleated erythrocytes in Blood by Automated counOrdered By: Addi Ortega on 04-06-2024 WBC corrected for nucl RBC Auto (Bld) [#/Vol] 8.9 10*3/uL 3.8-11.6 [facility] WBC corrected for nucl RBC Auto (Bld) [#/Vol] Leukocytes [#/volume] corrected for nucleated erythrocytes in Blood by Automated coun 3.8-11.6 [facility] Leukocytes [#/volume] in Blo od by Automated countOrdered By: Addi Ortega on 04-06-2024 WBC (Bld) [#/Vol] 8.9 10*3/uL Normal 3.8-11.6 [facility] Comment on above: Performed By: #### P ILLAR TSH, PILLAR LIPID, PILLAR CBC, PILLAR BMP #### [facility] [address] Lymphocytes Auto (Bld) [#/Vo l]Ordered By: Addi Ortega on 04-06-2024 Lymphocytes (Bld) [#/Vol] Lymphocytes [#/volume] in Blood by Automated count 1.00-4.8 [facility] Lymphocytes [#/volume] in Bl ood by Automated countOrdered By: Addi Ortega on 04-06-2024 Lymphocytes (Bld) [#/Vol] 2.5 10*3/uL Normal 1.00-4.8 [facility] Comment on above: Performed By: #### P ILLAR TSH, PILLAR LIPID, PILLAR CBC, PILLAR BMP #### [facility] [address] Lymphocytes/100 WBC Auto (Bl d)Ordered By: Addi Ortega on 04-06-2024 Lymphocytes/100 WBC (Bld) Lymphocytes/100 leukocytes in Blood by Automated count . [facility] Lymphocytes/100 leukocytes i n Blood by Automated countOrdered By: Addi Ortega on 04-06-2024 Lymphocytes/100 WBC (Bld) 28.8 % Normal . [facility] Comment on above: Performed By: #### P ILLAR TSH, PILLAR LIPID, PILLAR CBC, PILLAR BMP #### [facility] [address] [place] [address] MCH Auto (RBC) [Entitic mass ]Ordered By: Addi Ortega on 04-06-2024 MCH (RBC) [Entitic mass] MCH [Entitic mass] by Automated count 24.7-34.3 [facility] MCH [Entitic mass] by Automa hamilton countOrdered By: Addi Ortega on 04-06-2024 MCH (RBC) [Entitic mass] 32.9 pg Normal 24.7-34.3 [facility] Comment on above: Performed By: #### P ILLAR TSH, PILLAR LIPID, PILLAR CBC, PILLAR BMP #### [facility] [address] [place] [address] MCHC Auto (RBC) [Mass/Vol]Or dered By: Addi Ortega on 04-06-2024 MCHC (RBC) [Mass/Vol] 35.4 g/dL High 32.0-35.0 [facility] MCHC (RBC) [Mass/Vol] MCHC [Mass/volume] by Automated count High 32.0-35.0 [facility] MCV Auto (RBC) [Entitic vol] Ordered By: Addi Ortega on 04-06-2024 MCV (RBC) [Entitic vol] MCV [Entitic volume] by Automated count 80-100 [facility] MCV [Entitic volume] by Auto mated countOrdered By: Addi Ortega on 04-06-2024 MCV (RBC) [Entitic vol] 93.2 fL Normal 80-100 [facility] Comment on above: Performed By: #### P ILLAR TSH, PILLAR LIPID, PILLAR CBC, PILLAR BMP #### [facility] [address] [place] [address] [place] Monocytes Auto (Bld) [#/Vol] Ordered By: Addi Ortega on 04-06-2024 Monocytes (Bld) [#/Vol] Automated blood monocyte count 0.0-0.8 [facility] Monocytes/100 WBC Auto (Bld) Ordered By: Addi Ortega on 04-06-2024 Monocytes/100 WBC (Bld) Automated monocyte % . [facility] Neutrophils Auto (Bld) [#/Vo l]Ordered By: Addi Ortega on 04-06-2024 Neutrophils (Bld) [#/Vol] Neutrophils [#/volume] in Blood by Automated count 1.8-7.7 [facility] Neutrophils [#/volume] in Bl ood by Automated countOrdered By: Addi Ortega on 04-06-2024 Neutrophils (Bld) [#/Vol] 5.8 10*3/uL Normal 1.8-7.7 [facility] Comment on above: Performed By: #### P ILLAR TSH, PILLAR LIPID, PILLAR CBC, PILLAR BMP #### [facility] [address] [place] [address] [place] Neutrophils/100 WBC Auto (Bl d)Ordered By: Addi Ortega on 04-06-2024 Neutrophils/100 WBC (Bld) Automated neutrophil % . [facility] No Panel InformationOrdered By: Addi Ortega on 04-06-2024 Estimated GFR (CKD-EPI) > 60.0 mL/Min [facility] Creatinine Clearance (Chem N/A [facility] Nucleated erythrocytes [Pres ence] in Blood by Automated countOrdered By: Addi Ortega on 04-06-2024 Nucleated RBC Auto Ql (Bld) 0.0 /100{WBC} 0-0.5 [facility] Nucleated RBC Auto Ql (Bld) Nucleated erythrocytes [Presence] in Blood by Automated count 0-0.5 [facility] Platelet mean volume Auto (B ld) [Entitic vol]Ordered By: Addi Ortega on 04-06-2024 Platelet mean volume (Bld) [Entitic vol] Platelet mean volume [Entitic volume] in Blood by Automated count 6.3-10.7 [facility] Platelet mean volume [Entiti c volume] in Blood by Automated countOrdered By: Addi Ortega on 04-06-2024 Platelet mean volume (Bld) [Entitic vol] 8.8 fL Normal 6.3-10.7 [facility] Comment on above: Performed By: #### P ILLYOSVANY TSH, PILLAR LIPID, PILLAR CBC, PILLAR BMP #### [facility] [address] [place] [address] [place] Platelets Auto (Bld) [#/Vol] Ordered By: Addi Ortega on 04-06-2024 Platelets (Bld) [#/Vol] Platelets [#/volume] in Blood by Automated count 150-450 [facility] Platelets [#/volume] in Bloo d by Automated countOrdered By: Addi Ortega on 04-06-2024 Platelets (Bld) [#/Vol] 274 10*3/uL Normal 150-450 [facility] Comment on above: Performed By: #### P ILLAR TSH, PILLAR LIPID, PILLAR CBC, PILLAR BMP #### [facility] [address] [place] [address] [place] Potassium [Moles/volume] in Serum or PlasmaOrdered By: Addi Ortega on 04-06-2024 Potassium [Moles/Vol] 4.0 mmol/L Normal 3.5-5.1 [facility] Comment on above: Performed By: #### P ILLAR TSH, PILLAR LIPID, PILLAR CBC, PILLAR BMP #### [facility] [address] [place] [address] [place] Potassium [Moles/Vol] Potassium [Moles/v olume] in Serum or Plasma 3.5-5.1 [facility] RBC Auto (Bld) [#/Vol]Ordere d By: Addi Ortega on 04-06-2024 RBC (Bld) [#/Vol] Erythrocytes [#/volu me] in Blood by Automated count 3.60-5.00 [facility] Serum or plasma anion gap de terminationOrdered By: Addi Ortega on 04-06-2024 Anion gap [Moles/Vol] 11.0 mmol/L Normal 6.0-15.0 [facility] Comment on above: Performed By: #### P ILLAR TSH, PILLAR LIPID, PILLAR CBC, PILLAR BMP #### [facility] [address] Anion gap [Moles/Vol] Serum or plasma an ion gap determination 6.0-15.0 [facility] Serum or plasma high density lipoprotein (HDL) cholesterol measurementOrdered By: Addi Ortega on 04-06-2024 Cholesterol in HDL [Mass/Vol] 48 mg/dL Normal 23-92 [facility] Comment on above: HDL CHOL ATP-III CLA SSIFICATION Cardiovascular RiskHDL > or equal to 60 mg/dL LOWHDL < 40 mg/dL HIGH Result Comment: HDL CHOL ATP-III CLASSIFICATION Cardiovascular Risk HDL > or equal to 60 mg/dL LOW HDL < 40 mg/dL HIGH Performed By: #### P ILLAR TSH, PILLAR LIPID, PILLAR CBC, PILLAR BMP #### [facility] [address] Serum or plasma total choles terol/high density lipoprotein (HDL) cholesterol mass ratOrdered By: Addi Ortega on 04-06-2024 Cholesterol.total/Cho lesterol in HDL [Mass ratio] 3.3 {ratio} Normal <5.0 [facility] Comment on above: Performed By: #### P ILLAR TSH, PILLAR LIPID, PILLAR CBC, PILLAR BMP #### [facility] [address] Cholesterol.total/Cho lesterol in HDL [Mass ratio] Serum or plasma total cholesterol/high density lipoprotein (HDL) cholesterol mass rat <5.0 [facility] Sodium [Moles/volume] in Ser um or PlasmaOrdered By: Addi Ortega on 04-06-2024 Sodium [Moles/Vol] 135 mmol/L Low 136-145 [facility] Comment on above: Performed By: #### P ILLAR TSH, PILLAR LIPID, PILLAR CBC, PILLAR BMP #### [facility] [address] Sodium [Moles/Vol] Sodium [Moles/volume ] in Serum or Plasma Low 136-145 [facility] Thyrotropin [Units/volume] i n Serum or PlasmaOrdered By: Addi Ortega on 04-06-2024 TSH Qn 2.72 m[IU]/L 0.45-5.33 [facility] TSH Qn Thyrotropin [Units/v olume] in Serum or Plasma 0.45-5.33 [facility] Triglyceride [Mass/volume] i n Serum or PlasmaOrdered By: Addi Ortega on 04-06-2024 Triglyceride [Mass/Vol] 79 mg/dL 0-149 [facility] Comment on above: TRIG ATP III CLASSIF ICATIONTRIG less than 150 mg/dL NormalTRIG 150-199 mg/dL Borderline highTRIG 200-500 mg/dL High TRIG greater than 500 mg/dL Very highStandard traceable to the Center for Disease Conrtrol and Prevention (CDC) test method. Triglyceride [Mass/Vol] Triglyceride [Mass/volume] in Serum or Plasma 0-149 [facility] Comment on above: TRIG ATP III CLASSIF ICATIONTRIG less than 150 mg/dL NormalTRIG 150-199 mg/dL Borderline highTRIG 200-500 mg/dL High TRIG greater than 500 mg/dL Very highStandard traceable to the Center for Disease Conrtrol and Prevention (CDC) test method. Urea nitrogen [Mass/volume] in Serum or PlasmaOrdered By: Addi Ortega on 04-06-2024 Urea nitrogen [Mass/Vol] 7 mg/dL Normal 03-09 [facility] Comment on above: Performed By: #### P ILLAR TSH, PILLAR LIPID, PILLAR CBC, PILLAR BMP #### [facility] [address] [place] [id number] [place] Urea nitrogen [Mass/Vol] Urea nitrogen [Mass/volume] in Serum or Plasma 03-09 [facility] WBC Auto (Bld) [#/Vol]Ordere d By: Addi Ortega on 04-06-2024 WBC (Bld) [#/Vol] Leukocytes [#/volume ] in Blood by Automated count 3.8-11.6 [facility] ED Note-Physicianon 03-20-20 ED Note-Physician ED [...] and Complexity of Problems Differential Diagnosis: [] [facility] Data External documents reviewed: [] My EKG [...] with the patient. 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 Discussed return precautions. [...] 03/21/2024 EDT [address], [address] [place] [address]- Business (1) Additional Instructions: DARWIN JONES In 3 days [address] [place] [address] [place] [address]- [phone] Business (1) Additional Instructions: Patient Education Threatened Miscarriage Subchorionic Hematoma Attestation Patient seen and evaluated by the physician housekeeper and laundry assistant. Attending physician was present in the emergency department and supervised care. This visit was performed by both the physician and an APC. I performed all aspects of the MDM as documented. This report was transcribed using voice recognition software. Every effort was made to ensure accuracy, however, inadvertently computerized heating unit mechanic mistakes may be present. Appropriate [facility] (more content not included)... Normal [facility] Comment on above: Result Comment: Elec tronically Signed By: Hector Correa PA-C\.br\Date and Time Signed: 03/18/24 12:11 EDT\.br\Electronically Co-Signed By: Toan [place] DO\.br\Date and Time Co-Signed: 03/20/24 07:17 EDT ABO/Rhon 03-18-2024 ABO/Rh Negative Invalid Interpretation Code [facility] Comment on above: Performed By: #### 2 [id number] #### [facility] [address] [place] [address] BLOOD BANKOrdered By: Nikky Brennan on 03-18-2024 ABO/Rh Interp Negative Invalid Interpretation Code [facility] BB Subsection BMPon 03-18-2024 Anion gap [Moles/Vol] 12 mmol/L Normal 6-16 [facility] Comment on above: Performed By: #### 2 [id number] #### [facility] [address] [place] [address] Calcium [Mass/Vol] 9.2 mg/dL Normal 8.9-11.1 [facility] Comment on above: Performed By: #### 2 [id number] #### [facility] [address] [place] [address] Chloride [Moles/Vol] 105 mmol/L Normal 101-111 [facility] Comment on above: Performed By: #### 2 [id number] #### [facility] [address] [place] [address] CO2 [Moles/Vol] 23 mmol/L Normal 21-31 [facility] Comment on above: Performed By: #### 2 [id number] #### [facility] [address] [place] [address] Creatinine [Mass/Vol] 0.5 mg/dL Normal 0.5-1.3 [facility] Comment on above: Performed By: #### 2 [id number] #### [facility] [address] [place] [address] Glucose [Mass/Vol] 92 mg/dL Normal 55-199 [facility] Comment on above: Performed By: #### 2 [id number] #### [facility] [address] [place] [address] Potassium [Moles/Vol] 3.8 mmol/L Normal 3.5-5.3 [facility] Comment on above: Performed By: #### 2 [id number] #### [facility] [address] [place] [address] Sodium [Moles/Vol] 136 mmol/L Normal 135-145 [facility] Comment on above: Performed By: #### 2 [id number] #### [facility] [address] [place] [address] Urea nitrogen [Mass/Vol] 9 mg/dL Normal 5-21 [facility] Comment on above: Performed By: #### 2 [id number] #### [facility] [address] [place] [address] Urea nitrogen/Creatinine [Mass ratio] 18 No Units Normal 10-20 [facility] Comment on above: Performed By: #### 2 [id number] #### [facility] [address] [place] [address] BhCG Quanton 03-18-2024 [place] [address] m[IU]/mL High 1-3 F [facility] Comment on above: Result Comment: 'F N ON < 1 - 3' ' 0.2 - 1 WEEK = 5 TO 50' ' 1 - 2 WEEKS = 50 - 500' ' 2 - 3 WEEKS = 100 - 5000' ' 3 - 4 WEEKS = 500 - 57381' ' 4 - 5 WEEKS = 1000 - 10404' ' 5 - 6 WEEKS = 05439 - 049091' ' 6 - 8 WEEKS = 21510 - 126387' ' 8 - 12 WEEKS = 46692 - 214349' Performed By: #### 2 [id number] #### [facility] [address] [place] [address] CBC w/ Auto Diffon 4 Basophils/100 WBC (Bld) 0.6 % Normal 0.0-2.0 [facility] Comment on above: Performed By: #### 2 [id number] #### [facility] [address] [place] [address] Basophils/Leukocytes Auto (Bld) [Pure # fraction] 0.0 E9/L Normal 0.0-0.2 [facility] Comment on above: Performed By: #### 2 [id number] #### [facility] [address] [place] [address] Eosinophils (Bld) [#/Vol] 0.0 E9/L Normal 0.0-0.5 [facility] Comment on above: Performed By: #### 2 [id number] #### [facility] [address] [place] [address] Eosinophils/100 WBC (Bld) 0.5 % Normal 0.0-8.0 [facility] Comment on above: Performed By: #### 2 [id number] #### [facility] [address] [place] [address] Erythrocyte distribution width (RBC) [Ratio] 12.5 % Normal 10.9-14.2 [facility] Comment on above: Performed By: #### 2 [id number] #### [facility] [address] [place] [address] Hematocrit (Bld) [Volume fraction] 40.2 % Normal 34.0-46.0 [facility] Comment on above: Performed By: #### 2 [id number] #### [facility] [address] [place] [address] Hemoglobin (Bld) [Mass/Vol] 13.8 g/dL Normal 12.0-16.0 [facility] Comment on above: Performed By: #### 2 [id number] #### [facility] [address] [place] [address] Lymphocytes (Bld) [#/Vol] 2.4 E9/L Normal 1.0-4.0 [facility] Comment on above: Performed By: #### 2 [id number] #### [facility] [address] [place] [address] Lymphocytes/100 WBC (Bld) 28.4 % Normal 14.0-50.0 [facility] Comment on above: Performed By: #### 2 [id number] #### [facility] [address] [place] [address] MCH (RBC) [Entitic mass] 32.3 pg Normal 27.0-34.0 [facility] Comment on above: Performed By: #### 2 [id number] #### [facility] [address] [place] [address] MCHC (RBC) [Mass/Vol] 34.3 g/dL Normal 31.4-36.0 [facility] Comment on above: Performed By: #### 2 [id number] #### [facility] [address] [place] [address] MCV (RBC) [Entitic vol] 94.2 fL Normal 80.0-100.0 [facility] Comment on above: Performed By: #### 2 [id number] #### [facility] [address] [place] [address] Monocytes (Bld) [#/Vol] 0.4 E9/L Normal 0.2-1.0 [facility] Comment on above: Performed By: #### 2 [id number] #### [facility] [address] [place] [address] Neutrophils (Bld) [#/Vol] 5.4 E9/L Normal 2.0-7.5 [facility] Comment on above: Performed By: #### 2 [id number] #### [facility] [address] [place] [address] Neutrophils/100 WBC (Bld) 65.4 % Normal 36.0-75.0 [facility] Comment on above: Performed By: #### 2 [id number] #### [facility] [address] [place] [address] Platelet mean volume (Bld) [Entitic vol] 8.5 fL Normal 6.4-10.8 [facility] Comment on above: Performed By: #### 2 [id number] #### [facility] [address] [place] [address] Platelets (Bld) [#/Vol] 249.0 E9/L Normal 150.0-500. 0 [facility] Comment on above: Performed By: #### 2 [id number] #### [facility] [address] [place] [address] RBC (Bld) [#/Vol] 4.3 E12/L Normal 4.3-5.9 [facility] Comment on above: Performed By: #### 2 [id number] #### [facility] [address] [place] [address] WBC corrected for nucl RBC Auto (Bld) [#/Vol] 8.3 E9/L Normal 4.0-11.0 [facility] Comment on above: Performed By: #### 2 [id number] #### [facility] [address] [place] [address] CHEMISTRYOrdered By: SYSTEM SYSTEM on 03-18-2024 Anion [...] 199 mg/[place] [address] m[IU]/mL High 1 - 3 mIU/mL [facility] Comment on above: Result Comment: 'F N ON < 1 - 3' ' 0.2 - 1 WEEK = 5 TO 50' ' 1 - 2 WEEKS = 50 - 500' ' 2 - 3 WEEKS = 100 - 5000' ' 3 - 4 WEEKS = 500 - 36599' ' 4 - 5 WEEKS = 1000 - 92995' ' 5 - 6 WEEKS = 81325 - 825902' ' 6 - 8 WEEKS = 06063 - 322745' ' 8 - 12 WEEKS = 78025 - 768713' Potassium [Moles/Vol] 3.8 mmol/L Normal 3.5 - 5.3 mmol/L [facility] Sodium [Moles/Vol] 136 mmol/L Normal 135 - 145 mmol/L [facility] Urea nitrogen [Mass/Vol] 9 mg/dL Normal 5 - 21 mg/dL [facility] Urea nitrogen/Creatinine [Mass ratio] 18 mg/mg Normal 10 - 20 [facility] ED Clinical Summaryon 2023 ED Clinical Summary ED Clinical Summary [place] [id number] ED Clinical Summary Person Information Name: TAWNYA HERRING [facility]ysi/[facility] Age: 28 Years : 1995 Sex: Female Language: Vincentian PCP: DARWIN JONES CNP Marital Status: Single Phone: [phone] Visit Id: Visit Reason: Vaginal bleeding - [...] 03/18/2024 12:15:02 03/18/2024 12:15:02 03/18/2024 12:15:02 ADDRESS: [address] [place] [phone] [facility] DOC NOTES: MEDICAL INFORMATION: Prescriptions Given: Medications to Continue with No Changes Other Medications citalopram (CeleXA 20 mg Tab) 1 Tablets By Mouth every day. PATIENT EDUCATION INFORMATION: Instructions: Threatened Miscarriage; Subchorionic Hematoma Follow up: With: Address: When: Rogelio Nath [address] [address] Business (1) In 3 days 03/21/2024 With: Address: When: [facility] [address] [facility] [place] [phone] Business (1) In 3 days DIAGNOSIS: Subchorionic bleed; Threatened Normal [facility] ED Patient Summaryon ED Patient Summary ED Patient Summary [address] [address] Patient Discharge Instructions Person Information Name: TAWNYA HERRING Age: 28 Years Arrival Date: 03/18/2024 08:06:19 Discharge Diagnosis: Subchorionic bleed; Threatened Primary Care Physician: DARWIN JONES CNP Provider Information Primary Provider: Toan Lake DO Advanced Mechanical Design Drafter:None The exam and treatment you received in the Emergency Department were for an urgent problem and are not intended as complete care. It is important that you follow up with a doctor, nurse practitioner, or physician?s housekeeper and laundry assistant for ongoing care. If your symptoms [...] Follow-up Instructions: With: Address: When: Rogelio Nath [address] [place] [address], [address] [address] Business (1) In 3 days 03/21/2024 With: Address: When: DARWIN JONES [address] [place] [phone] Business (1) In 3 days In the event that this physician does not participate in your insurance network, please consult with your insurance company to find a nearby participating provider. Patient Education Materials: Threatened Miscarriage; Subchorionic Hematoma A MESSAGE TO ALL PATIENTS REGARDING OPIOIDS PRESCRIPTION OPIOIDS: WHAT YOU NEED TO KNOW Prescription opioids can be used to help relieve lulontcv-fi-qazlpc pain and are often prescribed following a [...] you be (more content not included)... Normal [facility] HEMATOLOGYOrdered By: SYSTEM SYSTEM on 03-18-2024 Basophils/100 [...] 24 Bilirubin Ql (U) Negative Normal Negative [facility] Comment on above: Performed By: #### 4 [id number] #### [facility] [address] [place] [address] Clarity (U) Clear Normal Clear [facility] Comment on above: Performed By: #### 4 [id number] #### [facility] [address] [place] [address] Color (U) Yellow Normal Yellow [facility] Comment on above: Result Comment: Micr oscopic readings are only performed on those samples that meet specific criteria set forth by [facility]. Performed By: #### 4 [id number] #### [facility] [address] [place] [address] Epithelial cells.squamous Auto (Urine sed) [#/Area] 0-[address] [facility] Comment on above: Performed By: #### 4 [id number] #### [facility] [address] [place] [address] Glucose Ql (U) Negative Normal Negative [facility] Comment on above: Performed By: #### 4 [id number] #### [facility] [address] [place] [address] Hemoglobin Auto test strip (U) [Mass/Vol] 3+ mg/dL Abnormal Negative [facility] Comment on above: Performed By: #### 4 [id number] #### [facility] [address] [place] [address] Ketones Auto test strip Ql (U) Negative Normal Negative [facility] Comment on above: Performed By: #### 4 [id number] #### [facility] [address] [place] [address] Leukocyte esterase Auto test strip Ql (U) 25 Chaparrita/uL Normal Negative [facility] Comment on above: Performed By: #### 4 [id number] #### [facility] [address] [place] [address] Mucus Auto Ql (U) Trace Normal Negative [facility] Comment on above: Performed By: #### 4 [id number] #### [facility] [address] [place] [address] Nitrite Auto test strip Ql (U) Negative Normal Negative [facility] Comment on above: Performed By: #### 4 [id number] #### [facility] [address] [place] [address] pH (U) 7.5 [pH] Invalid Interpretation Code 5.0-9.0 [facility] Comment on above: Performed By: #### 4 [id number] #### [facility] [address] [place] [address] Protein Ql (U) Trace Abnormal Negative [facility] Comment on above: Performed By: #### 4 [id number] #### [facility] [address] [place] [address] RBC Ql (U) 31-75 Abnormal 0-3 [facility] Comment on above: Performed By: #### 4 [id number] #### [facility] [address] [place] [address] Specific gravity (U) [Rel density] 1.023 Invalid Interpretation Code 1.005-1.[address] [facility] Comment on above: Performed By: #### 4 [id number] #### [facility] [address] [place] [address] Urobilinogen (U) [Mass/Vol] Negative Normal Negative [facility] Comment on above: Performed By: #### 4 [id number] #### [facility] [address] [place] [address] WBC Auto (Urine sed) [#/Area] 0-5 Normal 0-5 [facility] Comment on above: Performed By: #### 4 [id number] #### [facility] [address] [place] [address] Type of Urine collection method Clean Catch Normal [facility] Comment on above: Performed By: #### 4 [id number] #### [facility] [address] [place] [address] URINALYSISOrdered By: SYSTEM SYSTEM on 03-18-2024 Bilirubin Ql (U) Negative Normal Negativemg /dL [facility] UA Auto SS Clarity (U) Clear (03/18/24 8:17 AM) Normal Clear [facility] UA Auto SS Color (U) Yellow 1 (03/18/24 8:17 AM) Normal Yellow [facility] UA Auto SS Comment on above: Interpretive Data: M icroscopic readings are only performed on those samples that meet specific criteria set forth by [facility]. Epithelial cells.squamous Auto (Urine sed) [#/Area] [...] sed) [#/Area] 0-5 graded/HPF Normal 0-5graded/ HPF [facility] UA Auto SS URINALYSISOrdered By: Hector quiroga on 03-18-2024 UA Spec Desc Clean Catch (03/18/24 8:17 AM) Normal [facility] UA Auto SS US 1st Trimesteron 03-18-2024 [...] intrauterine , with heart rate 125 bpm. [place]-rump length 3.22 mm. Mean sac diameter 1.74 [...] Transabdominal Ultrasound Performed Transvaginal Ultrasound Performed Normal [facility] US Transvaginalon 03-18-2024 US Transvaginal Exam Date/Time: 03/18/2024 11:41 EDT Reason for Exam: Vaginal bleeding Report Please review ultrasound pelvis for ultrasound transvaginal report. Ordering Provider: Hector Correa FINAL REPORT Dictated: 03/18/2024 12:06 pm Luis Alfredo Bunch MD Signed (Electronic Signature): 03/18/2024 12:06 pm Signed by: Luis Alfredo Bunch MD Transcribed by: EDWIN Technologist: MARCOS Palma [facility] eGFRon 03-18-2024 eGFR 131 mL/min/1.73 m2 Normal >=59 [facility] Comment on above: Order Comment: Order added by Discern Expert. Performed By: #### 1 [id number] #### [facility] Laboratory [address] [place] [address] Progesteroneon 02-24-2024 Progesterone 9.9 ng/mL Normal . [facility] Comment on above: Result Comment: Foll icular phase 0.1 - 0.9 Luteal phase 1.8 - 23.9 Ovulation phase 0.1 - 12.0 First trimester 11.0 - 44.3 Second trimester 25.4 - 83.3 Third trimester 58.7 - 214.0 Postmenopausal 0.0 - 0.1 Performed at: [facility] [id number] Electric Trucker: Alexis Ashton PhD, Phone: [phone] PERFORMED BY: [place] [address] [place] [address] PATHOLOGIST FLIGHT TECHNICIAN JORDI SMITH M.D. Performed By: #### P ANTHONY ####[facility] , Serum or plasma progesterone measurement (mass/volume)Ordered By: Brain Way on 02-24-2024 Progesterone [Mass/Vol] 9.9 ng/mL . [facility] Comment on above: Follicular phase 0.1 - 0.9 Luteal phase 1.8 - 23.9 Ovulation phase 0.1 - 12.0 First trimester 11.0 - 44.3 Second trimester 25.4 - 83.3 Third trimester 58.7 - 214.0 Postmenopausal 0.0 - 0.1Performed at: [facility] [id number] Director: Alexis Ashton PhD, Phone: [phone] Progesteroneon 01-24-2024 Progesterone 8.5 ng/mL Normal . [facility] Comment on above: Result Comment: Foll icular phase 0.1 - 0.9 Luteal phase 1.8 - 23.9 Ovulation phase 0.1 - 12.0 First trimester 11.0 - 44.3 Second trimester 25.4 - 83.3 Third trimester 58.7 - 214.0 Postmenopausal 0.0 - 0.1 Performed at: [address] [id number] Electric Trucker: Alexis Ashton PhD, Phone: [phone] PERFORMED BY: [address] [place] [address] PATHOLOGIST FLIGHT TECHNICIAN JORDI SMITH M.D. Performed By: #### P ANTHONY ####[facility] , Serum or plasma progesterone measurement (mass/volume)Ordered By: Brain Way on 01-24-2024 Progesterone [Mass/Vol] 8.5 ng/mL . [facility] Comment on above: Follicular phase 0.1 - 0.9 Luteal phase 1.8 - 23.9 Ovulation phase 0.1 - 12.0 First trimester 11.0 - 44.3 Second trimester 25.4 - 83.3 Third trimester 58.7 - 214.0 Postmenopausal 0.0 - 0.1Performed at: [address] [id number] Director: Alexis Ashton PhD, Phone: [phone] Progesteroneon 12-27-2023 Progesterone 13.3 ng/mL Normal . [facility] Comment on above: Result Comment: Foll icular phase 0.1 - 0.9 Luteal phase 1.8 - 23.9 Ovulation phase 0.1 - 12.0 First trimester 11.0 - 44.3 Second trimester 25.4 - 83.3 Third trimester 58.7 - 214.0 Postmenopausal 0.0 - 0.1 Performed at: [address] [id number] Electric Trucker: Alexis Ashton PhD, Phone: [phone] PERFORMED BY: [address] [place] [address] PATHOLOGIST FLIGHT TECHNICIAN JORDI SMITH M.D. Performed By: #### P ANTHONY ####[facility] , Serum or plasma progesterone measurement (mass/volume)Ordered By: Brain Way on 12-27-2023 Progesterone [Mass/Vol] 13.3 ng/mL . [facility] Comment on above: Follicular phase 0.1 - 0.9 Luteal phase 1.8 - 23.9 Ovulation phase 0.1 - 12.0 First trimester 11.0 - 44.3 Second trimester 25.4 - 83.3 Third trimester 58.7 - 214.0 Postmenopausal 0.0 - 0.1Performed at: [facility] [id number] Director: Alexis Ashton PhD, Phone: [phone] Progesteroneon 11-30-2023 Progesterone 16.9 ng/mL Normal . The [facility] Comment on above: Result Comment: Foll icular phase 0.1 - 0.9 Luteal phase 1.8 - 23.9 Ovulation phase 0.1 - 12.0 First trimester 11.0 - 44.3 Second trimester 25.4 - 83.3 Third trimester 58.7 - 214.0 Postmenopausal 0.0 - 0.1 Performed at: [facility] [id number] Electric Trucker: Alexis Ashton PhD, Phone: [phone] PERFORMED BY: [place] [address] [address] PATHOLOGIST FLIGHT TECHNICIAN JORDI SMITH M.D. Performed By: #### P ANTHONY ####[facility] , Serum or plasma progesterone measurement (mass/volume)Ordered By: Brain Way on 11-30-2023 Progesterone [Mass/Vol] 16.9 ng/mL . [facility] Comment on above: Follicular phase 0.1 - 0.9 Luteal phase 1.8 - 23.9 Ovulation phase 0.1 - 12.0 First trimester 11.0 - 44.3 Second trimester 25.4 - 83.3 Third trimester 58.7 - 214.0 Postmenopausal 0.0 - 0.1Performed at: [facility] [place] [id number] Director: Alexis Ashton PhD, Phone: [phone] Teresa 11-18-2023 CNOV Office Visit (ENDOMN ) -- TAWNYA HERRING ([id number]) 1995 F Date Time Provider Department 11/18/23 8:30 AM RUBY WHITTINGTON ENDOMN During your visit today, we recorded the following information about you: Pulse Blood pressure Weight Last Period 100/minute 132/92 110.7 kg 11/09/23 RamonaOdalis 11/18/2023 7:58 AM Signed Thank you for choosing the [facility] Department of Endocrinology, Diabetes and Metabolism. Did you know that you need to call 48 hours in advance of your scheduled visit, if you are unable to make your appointment? The Endocrinology and Metabolism [place] thanks you for your commitment, because patients not showing to their appointment results in a lost opportunity for patients to receive [facility] health care at the [facility]. To Cancel an appointment, please choose one of the following: - Call the Appointment Call Center at [phone] - From [place] and [employer], Go to Appointments - Cancel Appts If cancelling, consider your need to reschedule to prevent further delays in your care. To Schedule an appointment, please choose one of the following: - Call the Appointment Call Center at [phone] - From [place] [facility] [employer], Go to Appointments - Request an Appt [...] as of 11/18/2023 - cyanocobalamin/folic acid (VITAMIN U37-YTOIR ACID) 1,000-400 mcg lozg Take by mouth (more content not included)... Normal [facility] Progesteroneon 11-01-2023 Progesterone 7.1 ng/mL Normal . [facility] Comment on above: Result Comment: Foll icular phase 0.1 - 0.9 Luteal phase 1.8 - 23.9 Ovulation phase 0.1 - 12.0 First trimester 11.0 - 44.3 Second trimester 25.4 - 83.3 Third trimester 58.7 - 214.0 Postmenopausal 0.0 - 0.1 Performed at: - [facility] [id number] Electric Trucker: Alexis Ashton PhD, Phone: [phone] PERFORMED BY: [place] [address] PATHOLOGIST FLIGHT TECHNICIAN JORDI SMITH M.D. Performed By: #### [...] - 214.0 Postmenopausal 0.0 - 0.1Performed at: [facility] [place] [id number] Director: Alexis Ashton PhD, Phone: [phone] Progesteroneon 10-01-2023 Progesterone 0.9 ng/mL Normal . [facility] Comment on above: Result Comment: Foll icular phase 0.1 - 0.9 Luteal phase 1.8 - 23.9 Ovulation phase 0.1 - 12.0 First trimester 11.0 - 44.3 Second trimester 25.4 - 83.3 Third trimester 58.7 - 214.0 Postmenopausal 0.0 - 0.1 Performed at: [address] [id number] Electric Trucker: Alexis Ashton PhD, Phone: [phone] PERFORMED BY: [facility] [address] [place] [id number] PATHOLOGIST FLIGHT TECHNICIAN JORDI SMITH M.D. Performed By: #### P ANTHONY #### [facility] , Serum or plasma progesterone measurement (mass/volume)Ordered By: Brain Way on 10-01-2023 Progesterone [Mass/Vol] 0.9 ng/mL . [facility] Comment on above: Follicular phase 0.1 - 0.9 Luteal phase 1.8 - 23.9 Ovulation phase 0.1 - 12.0 First trimester 11.0 - 44.3 Second trimester 25.4 - 83.3 Third trimester 58.7 - 214.0 Postmenopausal 0.0 - 0.1Performed at: [email or web address] [place] [address] [id number] Director: Alexis Ashton PhD, Phone: [phone] Ambulatory Visit Summaryon 0 09-29-2023 Ambulatory Visit [...] JONES CNP When: Where: [address] [place] [address]- Medications What How Much When Why Instructions New amoxicillin-clavulanate (Augmentin 875 mg oral tablet) 1 Tablets By Mouth Every 12 hours Sinusitis BMI 38.0-38.9,adult Duration: 10 Days Pickup at [facility] New methylPREDNISolone (Medrol Dosepack 4 mg Tab) 1 Packets By Mouth As Directed Sinusitis BMI 38.0-38.9,adult Duration: 6 Days as directed on package labeling Pickup at [facility] Unchanged citalopram (CeleXA 20 mg Tab) 1 Tablets By Mouth Every day Contact prescribing physician if questions or concerns Unchanged citalopram (citalopram 20 mg Tab) Contact prescribing physician if questions or concerns Unchanged pyridoxine (Vitamin B6 100 mg Tab) By Mouth Every day Contact prescribing physician if questions or concerns Pharmacy Information [facility]: [address] [place], [place] [id number] [phone] Allergies No Known Allergies No Known Medication [...] choosing us for your care. Normal [facility] Family Medicine Office/Clini c Noteon [...] with voice recognition software. Occasional wrong-word or ?cpicx-q-tvzj? substitutions may have occurred due to the [...] with improvement. She does not use any dgyy-tsw-uczjsfo Flonase and has not tried any other [...] day(s), # 20 tab(s), Refills(s) 0, Pharmacy: [facility], 170.2, cm, 09/29/23 10:44:00 EST, Height/Length Dosing, 112, kg, 09/29/23 10:44:00 EST, Weight Dosing methylPREDNISolone, = 1 packet(s), Oral, As Directed, as directed on package labeling, X 6 day(s), # 21 tab(s), Refills(s) 0, Pharmacy: [facility], 170.2, cm, 09/29/23 10:44:00 EST, Height/Length Dosing, 112, kg, 09/29/23 10:44:00 EST, Weight Dosing 2. BMI 38.0-38.9,adult (Z68.38: Body mass index [BMI] 38.0-38.9, adult) The standard range for ages 18 and olde (more content not included)... Normal [facility] Comment on above: Result Comment: Elec tronically [...] ? Medicines that treat allergies (antihistamines). ? Mdss-llo-yuxrvfc pain relievers. ? If caused by bacteria, [...] home: Medicines ? Take, use, or apply oabz-cro-ebydfkl and prescription medicines only as told by [...] and water are not available, use hand multi skilled operator. ? Do not smoke. Avoid being around people who are smoking (secondhand smoke). ? Keep all follow-up visits. This is important. Contact a health care provider if: ? You have a fever. ? Your symptoms get (more content not included)... Normal [facility] Noe 07-16-2023 [facility] -- TAWNYA HERRING ([id number]) 1995 F Date Time Provider Department 07/16/23 [...] Encounter Status:Closed by KENAN GOMEZ on 07/16/23 [facility] CNOVon 06-08-2023 CNOV Office Visit (OTOLLN ) -- TAWNYA HERRING ([id number]) 1995 F Date Time Provider Department 06/08/23 [...] will be in touch with results via [employer] HPI: Tawnya is a 27 year old [...] Low Allergies (more content not included)... Normal [facility] Alanine aminotransferase [En zymatic activity/volume] in Serum or PlasmaOrdered By: Addi Ortega on 04-08-2023 ALT [Catalytic activity/Vol] 28 U/L 7-52 [facility] Albumin [Mass/volume] in Ser um or Plasma by Bromocresol green (BCG) dye binding methoOrdered By: Addi Ortega on 04-08-2023 Albumin BCG dye [Mass/Vol] 4.8 g/dL 3.5-5.7 [facility] Alkaline phosphatase [Enzyma tic activity/volume] in Serum or PlasmaOrdered By: Addi Ortega on 04-08-2023 ALP [Catalytic activity/Vol] 61 U/L 34-104 [facility] Aspartate aminotransferase [ Enzymatic activity/volume] in Serum or PlasmaOrdered By: Addi Ortega on 04-08-2023 AST [Catalytic activity/Vol] 13 U/L 13-39 [facility] Basophils Auto (Bld) [#/Vol] Ordered By: Addi Ortega on 04-08-2023 Basophils (Bld) [#/Vol] 0.0 10*3/uL 0.0-0.2 [facility] Basophils/100 WBC Auto (Bld) Ordered By: Addi Ortega on 04-08-2023 Basophils/100 WBC (Bld) 0.4 % . [facility] Bilirubin.total [Mass/volume ] in Serum or PlasmaOrdered By: Addi Ortega on 04-08-2023 Bilirubin [Mass/Vol] 0.4 mg/dL 0.3-1.0 [facility] Calcium [Mass/volume] in Ser um or PlasmaOrdered By: Addi Ortega on 04-08-2023 Calcium [Mass/Vol] 9.5 mg/dL 8.6-10.3 [facility] Carbon dioxide, total [Moles /volume] in Serum or PlasmaOrdered By: Addi Ortega on 04-08-2023 CO2 [Moles/Vol] 25.4 mmol/L 21.0-31.0 [facility] Chloride [Moles/volume] in S ghada or PlasmaOrdered By: Addi Ortega on 04-08-2023 Chloride [Moles/Vol] 106 mmol/L 98-107 [facility] Cholesterol [Mass/volume] in Serum or PlasmaOrdered By: Addi Ortega on 04-08-2023 Cholesterol [Mass/Vol] 162 mg/dL 140-200 [facility] Comment on above: Chol less than 200 m g/dl low riskChol 201-239 mg/dl borderline riskChol 240 mg/dl and greater high risk Cholesterol in LDL Calc [Mas s/Vol]Ordered By: Addi Ortega on 04-08-2023 Cholesterol in LDL [Mass/Vol] 99 mg/dL 0-100 [facility] Comment on above: LDL ATP III CLASSIFI CATIONLDL less than 100 mg/dL OptimalLDL 100-129 mg/dL Near or above optimalLDL 130-159 mg/dL Borderline highLDL 160-189 mg/dL HighLDL greater than 189 mg/dL Very high Cholesterol in VLDL Calc [Ma ss/Vol]Ordered By: Addi Ortega on 04-08-2023 Cholesterol in VLDL [Mass/Vol] 18 mg/dL [facility] Creatinine [Mass/volume] in Serum or PlasmaOrdered By: Addi Ortega on 04-08-2023 Creatinine [Mass/Vol] 0.59 mg/dL 0.60-1.20 [facility] Eosinophils Auto (Bld) [#/Vo l]Ordered By: Addi Ortega on 04-08-2023 Eosinophils (Bld) [#/Vol] 0.1 10*3/uL 0.0-0.45 [facility] Eosinophils/100 WBC Auto (Bl d)Ordered By: Addi Ortega on 04-08-2023 Eosinophils/100 WBC (Bld) 1.3 % . [facility] Erythrocyte distribution wid th Auto (RBC) [Ratio]Ordered By: Addi Ortega on 04-08-2023 Erythrocyte distribution width (RBC) [Ratio] 12.6 % 11.9-15.3 [facility] Globulin Calc (S) [Mass/Vol] Ordered By: Addi Ortega on 04-08-2023 Globulin (S) [Mass/Vol] 2.7 g/dL [facility] Glucose [Mass/volume] in Ser um or PlasmaOrdered By: Addi Ortega on 04-08-2023 Glucose [Mass/Vol] 83 mg/dL 70-100 [facility] Hematocrit Auto (Bld) [Volum e fraction]Ordered By: Addi Ortega on 04-08-2023 Hematocrit (Bld) [Volume fraction] 39.3 % 34.0-46.4 [facility] Hemoglobin [Mass/volume] in BloodOrdered By: Addi Ortega on 04-08-2023 Hemoglobin (Bld) [Mass/Vol] 13.6 g/dL 11.8-15.4 [facility] Leukocytes [#/volume] correc hamilton for nucleated erythrocytes in Blood by Automated counOrdered By: Addi Ortega on 04-08-2023 WBC corrected for nucl RBC Auto (Bld) [#/Vol] 7.6 10*3/uL 3.8-11.6 [facility] Lymphocytes Auto (Bld) [#/Vo l]Ordered By: Addi Ortega on 04-08-2023 Lymphocytes (Bld) [#/Vol] 2.9 10*3/uL 1.00-4.8 [facility] Lymphocytes/100 WBC Auto (Bl d)Ordered By: Addi Ortega on 04-08-2023 Lymphocytes/100 WBC (Bld) 38.6 % . [facility] MCH Auto (RBC) [Entitic mass ]Ordered By: Addi Oretga on 04-08-2023 MCH (RBC) [Entitic mass] 31.6 pg 24.7-34.3 [facility] MCHC Auto (RBC) [Mass/Vol]Or dered By: Addi Ortega on 04-08-2023 MCHC (RBC) [Mass/Vol] 34.5 g/dL 32.0-35.0 [facility] MCV Auto (RBC) [Entitic vol] Ordered By: Addi Ortega on 04-08-2023 MCV (RBC) [Entitic vol] 91.7 fL 80-100 [facility] Monocytes Auto (Bld) [#/Vol] Ordered By: Addi Ortega on 04-08-2023 Monocytes (Bld) [#/Vol] 0.4 10*3/uL 0.0-0.8 [facility] Monocytes/100 WBC Auto (Bld) Ordered By: Addi Ortega on 04-08-2023 Monocytes/100 WBC (Bld) 5.8 % . [facility] Neutrophils Auto (Bld) [#/Vo l]Ordered By: Addi Ortega on 04-08-2023 Neutrophils (Bld) [#/Vol] 4.1 10*3/uL 1.8-7.7 [facility] Neutrophils/100 WBC Auto (Bl d)Ordered By: Addi Ortega on 04-08-2023 Neutrophils/100 WBC (Bld) 53.9 % . [facility] No Panel InformationOrdered By: Addi Ortega on 04-08-2023 Estimated GFR (CKD-EPI) > 60.0 mL/Min [facility] Nicotine Metabolite Negative Cutoff=25 [facility] Comment on above: Performed at: [address] [id number] Director: Catherine eMndoza MD, Phone: [phone] Pharmacy Creatinine Clearance (Chem N/A [facility] Nucleated erythrocytes [Pres ence] in Blood by Automated countOrdered By: Addi Ortega on 04-08-2023 Nucleated RBC Auto Ql (Bld) 0.0 /100{WBC} 0-0.5 [facility] Platelet mean volume Auto (B ld) [Entitic vol]Ordered By: Addi Ortega on 04-08-2023 Platelet mean volume (Bld) [Entitic vol] 8.6 fL 6.3-10.7 [facility] Platelets Auto (Bld) [#/Vol] Ordered By: Addi Ortega on 04-08-2023 Platelets (Bld) [#/Vol] 361 10*3/uL 150-450 [facility] Potassium [Moles/volume] in Serum or PlasmaOrdered By: Addi Ortega on 04-08-2023 Potassium [Moles/Vol] 4.6 mmol/L 3.5-5.1 [facility] Protein [Mass/volume] in Ser um or PlasmaOrdered By: Addi Ortega on 04-08-2023 Protein [Mass/Vol] 7.5 g/dL 6.4-8.9 [facility] RBC Auto (Bld) [#/Vol]Ordere d By: Addi Ortega on 04-08-2023 RBC (Bld) [#/Vol] 4.29 10*6/uL 3.60-5.00 [facility] Serum or plasma albumin/glob ulin mass ratioOrdered By: Addi Ortega on 04-08-2023 Albumin/Globulin [Mass ratio] 1.8 {ratio} [facility] Serum or plasma anion gap de terminationOrdered By: Addi Ortega on 04-08-2023 Anion gap [Moles/Vol] 12.2 mmol/L 6.0-15.0 [facility] Serum or plasma high density lipoprotein (HDL) cholesterol measurementOrdered By: Addi Ortega on 04-08-2023 Cholesterol in HDL [Mass/Vol] 45 mg/dL 23- [facility] Comment on above: HDL CHOL ATP-III CLA SSIFICATION Cardiovascular RiskHDL > or equal to 60 mg/dL LOWHDL < 40 mg/dL HIGH Serum or plasma total choles terol/high density lipoprotein (HDL) cholesterol mass ratOrdered By: Addi Ortega on 04-08-2023 Cholesterol.total/Cho lesterol in HDL [Mass ratio] 3.6 {ratio} <5.0 [facility] Sodium [Moles/volume] in Ser um or PlasmaOrdered By: Addi Ortega on 04-08-2023 Sodium [Moles/Vol] 139 mmol/L 136-145 [facility] Thyrotropin [Units/volume] i n Serum or PlasmaOrdered By: Addi Ortega on 04-08-2023 TSH Qn 4.55 m[IU]/L 0.45-5.33 [facility] Triglyceride [Mass/volume] i n Serum or PlasmaOrdered By: Addi Ortega on 04-08-2023 Triglyceride [Mass/Vol] 92 mg/dL 0-149 [facility] Comment on above: TRIG ATP III CLASSIF ICATIONTRIG less than 150 mg/dL NormalTRIG 150-199 mg/dL Borderline highTRIG 200-500 mg/dL High TRIG greater than 500 mg/dL Very highStandard traceable to the Center for Disease Conrtrol and Prevention (CDC) test method. Urea nitrogen [Mass/volume] in Serum or PlasmaOrdered By: Addi Ortega on 04-08-2023 Urea nitrogen [Mass/Vol] 18 mg/dL 03-09 [facility] WBC Auto (Bld) [#/Vol]Ordere d By: Addi Ortega on 04-08-2023 WBC (Bld) [#/Vol] 7.6 10*3/uL 3.8-11.6 [facility] C Urineon 03-24-2023 Bacteria identified Cx Nom [...] Locations R1: This test was performed at: [facility], [address] [place] [address], [facility]- , , Normal [facility] Comment on above: Performed By: #### 2 [id number], [id number], [id number], [id number], [id number], [id number] #### [facility] [address] [place] [id number] Abdomen/Pelvis w/o Contra ston 03-23-2023 CT [...] Oral contrast amount in ml's: [address] [facility] Discharge Instructionson Discharge Instructions [id number]:[address] [facility] ED Note-Physicianon 03-23-20 ED Note-Physician Basic Information [...] any medications. States that she was at [facility], where she did wait about 5 [...] and Complexity of Problems Differential Diagnosis: [] [facility] Data External documents reviewed: [] My EKG [...] day(s), # 28 cap(s), Refills(s) 0, Pharmacy: [facility], 170.2, cm, 03/22/23 20:14:00 EDT, Height/Length Dosing, 113.5, kg, 03/22/23 20:14:00 EDT, Weight Dosing ketorolac, 30 mg = 1 mL, Injection, IV Push, Once, Stop date 03/22/23 20:51:00 EDT, STAT, Start date 03/22/23 20:51:00 EDT, 03/22/23 20:51:00 EDT ondansetron, 4 mg = 2 mL, Injection, IV Push, Once, Stop date 03/22 (more content not included)... Normal [facility] Comment on above: Result Comment: Elec tronically Signed By: Hector Correa PA-C\.br\Date and Time Signed: 03/22/23 23:35 EDT\.br\Electronically Co-Signed By: Gabriel Curtis DO.br\Date and Time Co-Signed: 03/23/23 03:21 EDT RAD - Preliminary Cat Scan R eporton 03-23-2023 RAD - Preliminary Cat Scan Report [id number]:[address] [facility] Auto Diffon 03-22-2023 Basophils/100 WBC (Bld) 0.5 % Normal 0.0-2.0 [facility] Comment on above: Order Comment: Order Added by Discern Expert. Performed By: #### 2 [id number], [id number], [id number], [id number], [id number], [id number] #### [facility] [address] [place] [address] Basophils/Leukocytes Auto (Bld) [Pure # fraction] 0.0 E9/L Normal 0.0-0.2 [facility] Comment on above: Order Comment: Order Added by Discern Expert. Performed By: #### 2 [id number], [id number], [id number], [id number], [id number], [id number] #### [facility] [address] [place] [address] Eosinophils/100 WBC (Bld) 1.5 % Normal 0.0-8.0 [facility] Comment on above: Order Comment: Order Added by Discern Expert. Performed By: #### 2 [id number], [id number], [id number], 9910534, [id number], [id number] #### [facility] [address] [place] [address] Eosinophils/Leukocyte s Auto (Bld) [Pure # fraction] 0.1 E9/L Normal 0.0-0.5 [facility] Comment on above: Order Comment: Order Added by Discern Expert. Performed By: #### 2 [id number], [id number], [id number], [id number], 0971124, [id number] #### [facility] [address] [place] [address] Lymphocytes/100 WBC (Bld) 34.9 % Normal 14.0-50.0 [facility] Comment on above: Order Comment: Order Added by Discern Expert. Performed By: #### 2 [id number], 1131301, [id number], 8038281, 0797524, [id number] #### [facility] [address] [place] [address] Lymphocytes/Leukocyte s Auto (Bld) [Pure # fraction] 3.4 E9/L Normal 1.0-4.0 [facility] Comment on above: Order Comment: Order Added by Discern Expert. Performed By: #### 2 [id number], [id number], [id number], 0055419, 4939821, [id number] #### [facility] [address] [place] [address] Monocytes/100 WBC (Bld) 6.0 % Normal 4.0-14.0 [facility] Comment on above: Order Comment: Order Added by Discern Expert. Performed By: #### 2 919534, 9189504, 49992483, 0579612, 2063046, 9678515 #### [facility] [address] [place] [address] Monocytes/Leukocytes Auto (Bld) [Pure # fraction] 0.6 E9/L Normal 0.2-1.0 [facility] Comment on above: Order Comment: Order Added by Discern Expert. Performed By: #### 2 049890, 6562742, 29623288, 1258816, 6992546, 5786534 #### [facility] [address] [place] [address] Neutrophils/100 WBC (Bld) 57.1 % Normal 36.0-75.0 [facility] Comment on above: Order Comment: Order Added by Discern Expert. Performed By: #### 2 663631, 7992693, 55376476, 6962468, 7058103, 3204413 #### [facility] [address] [place] [address] Neutrophils/Leukocyte s Auto (Bld) [Pure # fraction] 5.6 E9/L Normal 2.0-7.5 [facility] Comment on above: Order Comment: Order Added by Discern Expert. Performed By: #### 2 122102, 3957387, 07093313, 7795867, 4215565, 6471047 #### [facility] [address] [place] [address] BMPon 03-22-2023 Creatinine [Mass/Vol] 0.5 mg/dL Normal 0.5-1.3 [facility] Comment on above: Performed By: #### 2 508530, 6949993, 71034830, 2886554, 8558593, 8698070 #### [facility] [address] [place] [address] Urea nitrogen [Mass/Vol] 15 mg/dL Normal 5-21 [facility] Comment on above: Performed By: #### 2 476016, 1148483, 67484613, 4853810, 4465383, 5648509 #### [facility] [address] [place] [address] Urea nitrogen/Creatinine [Mass ratio] 30 No Units High 10-20 [facility] Comment on above: Performed By: #### 2 951656, 9755786, 43546250, 6763363, 7053453, 1893253 #### [facility] [address] [place] [address] Anion gap [Moles/Vol] 15 mmol/L Normal 6-16 [facility] Comment on above: Performed By: #### 2 703575, 3834338, 97140135, 6031305, 9869089, 9549018 #### [facility] [address] [place] [address] Calcium [Mass/Vol] 9.6 mg/dL Normal 8.9-11.1 [facility] Comment on above: Performed By: #### 2 687483, 4848569, 43289004, 4491582, 6335939, 1409241 #### [facility] [address] [place] [address] Chloride [Moles/Vol] 103 mmol/L Normal 101-111 [facility] Comment on above: Performed By: #### 2 858146, 3595943, 46106872, 1823702, 6191057, 9964890 #### [facility] [address] [place] [address] CO2 [Moles/Vol] 23 mmol/L Normal 21-31 [facility] Comment on above: Performed By: #### 2 483986, 6737706, 83745616, 1115307, 0884307, 3571077 #### [facility] [address] [place] [address] Glucose [Mass/Vol] 84 mg/dL Normal 55-199 [facility] Comment on above: Result Comment: If t his glucose result represents a fasting glucose, interpretation should refer to the following reference range: 55-99 mg/dL Performed By: #### 2 767510, 7753596, 13005181, 7160186, 0236964, 0370819 #### [facility] [address] [place] [address] Potassium [Moles/Vol] 3.7 mmol/L Normal 3.5-5.3 [facility] Comment on above: Performed By: #### 2 943259, 8348875, 27303040, 3368495, 1182456, 6085864 #### [facility] [address] [place] [address] Sodium [Moles/Vol] 137 mmol/L Normal 135-145 [facility] Comment on above: Performed By: #### 2 063346, 9258220, 95468970, 8285076, 6515102, 3859004 #### [facility] [address] [place] [address] CBC w/ Auto Diffon 3 Erythrocyte distribution width (RBC) [Ratio] 12.5 % Normal 10.9-14.2 [facility] Comment on above: Performed By: #### 2 378148, 0897215, 53377069, 7533760, 5187093, 5358505 #### [facility] [address] [place] [address] Hematocrit (Bld) [Volume fraction] 37.7 % Normal 34.0-46.0 [facility] Comment on above: Performed By: #### 2 124885, 6987881, 34055782, 4398621, 7069677, 3880027 #### [facility] [address] [place] [address] Hemoglobin (Bld) [Mass/Vol] 13.1 g/dL Normal 12.0-16.0 [facility] Comment on above: Performed By: #### 2 886181, 6499547, 50637797, 1872418, 5478337, 7154749 #### [facility] [address] [place] [address] MCH (RBC) [Entitic mass] 31.9 pg Normal 27.0-34.0 [facility] Comment on above: Performed By: #### 2 786986, 9568396, 52909762, 8575316, 3008340, 5281954 #### [facility] [address] [place] [address] MCHC (RBC) [Mass/Vol] 34.8 g/dL Normal 31.4-36.0 [facility] Comment on above: Performed By: #### 2 373944, 1061620, 47527162, 2842725, 8332039, 3150570 #### [facility] [address] [place] [address] MCV (RBC) [Entitic vol] 91.6 fL Normal 80.0-100.0 [facility] Comment on above: Performed By: #### 2 038364, 7229494, 11865012, 0638094, 3674981, 1745899 #### [facility] [address] [place] [address] Platelet mean volume (Bld) [Entitic vol] 7.6 fL Normal 6.4-10.8 [facility] Comment on above: Performed By: #### 2 367099, 1528833, 42460648, 8172261, 9581344, 3056448 #### [facility] [address] [place] [address] Platelets (Bld) [#/Vol] 306.0 E9/L Normal 150.0-500. 0 [facility] Comment on above: Performed By: #### 2 289219, 1497007, 92010830, 9380925, 1558234, 7958763 #### [facility] [address] [place], [place] [address] RBC (Bld) [#/Vol] 4.1 E12/L Low 4.3-5.9 [facility] Comment on above: Performed By: #### 2 667083, 6853627, 82116659, 4145482, 2325182, 2356054 #### [facility] [address] [place] [address] WBC corrected for nucl RBC Auto (Bld) [#/Vol] 9.8 E9/L Normal 4.0-11.0 [facility] Comment on above: Performed By: #### 2 465539, 3227082, 19502287, 7449855, 9980954, 9101537 #### [facility] [address] [place] [address] CHEMISTRYOrdered By: SYSTEM SYSTEM on 03-22-2023 Albumin [...] 133 mL/min/1.73 m2 Normal >=59mL/min /1.73 m2 [facility] Chem S Globulin (S) [Mass/Vol] 3.1 g/dL [...] 15 mg/dL Normal 5 - 21 mg/dL [facility] Remisol Urea nitrogen/Creatinine [Mass ratio] 30 mg/mg High 10 - 20 [facility] Remisol Consent for Treatmenton 08-0 Consent for Treatment [id number] [facility] ED Clinical Summaryon 2022 ED Clinical Summary (Inserted Image. Hayley ble to display) [place] [id number] ED Clinical Summary Person Information Name: TAWNYA HERRING [facility] Age: 27 Years : 1995 Sex: Female Language: Vincentian PCP: DARWIN JONES CNP Marital Status: Single Phone: [phone] Visit Id: Visit Reason: Dysuria; Nausea; Flank [...] 03/22/2023 22:52:44 03/22/2023 22:52:44 03/22/2023 22:52:44 ADDRESS: [address] [place] [id number] PHYS DOC NOTES: MEDICAL INFORMATION: Prescriptions Given: New Medications [facility], [address] [place], [place] [id number], [phone] cephalexin (Keflex 500 mg Cap) 1 Capsules By Mouth every 6 hours for 7 Days. Refills: 0. Medications to Continue with No Changes Other Medications acetaminophen-hydrocodone ([place] 325 mg-5 mg oral tablet) 2 Tablets [...] EDUCATION INFORMATION: Instructions: Urinary Tract Infection, Adult, Levo-ao-Gzcv Follow up: With: Address: When: DARWIN JONES [address] [place] [address] [phone] Business (1) In 3 days 03/25/2023 Comments: Follow-up with your primary care provider in 3 to 5 days. If symptoms worsen, do not improve, or new symptoms arise please report back to emergency department for further evaluation. DIAGNOSIS: UTI (urinary tract infection) Normal [facility] ED Patient Education Noteon 03-22-2023 ED Patient [...] these instructions at home: Medicines ? Take iqvx-skf-vxehmqg and prescription medicines only as told by [...] Reviewed: 03/14/2021 Elsevier Patient Education ? [address] [employer] [address] [facility] ED Patient Summaryon 023 ED Patient Summary (Inserted Image. Hayley ble to display) [address] [address] Patient Discharge Instructions Person Information Name: TAWNYA HERRING Age: 27 Years Arrival Date: 03/22/2023 19:52:37 Discharge Diagnosis: UTI (urinary tract infection) Primary Care Physician: DARWIN JONES CNP Provider Information Primary Provider: Gabriel Curtis DO Advanced Mechanical Design Drafter:None The exam and treatment you received in the Emergency Department were for an urgent problem and are not intended as complete care. It is important that you follow up with a doctor, nurse practitioner, or physician?s housekeeper and laundry assistant for ongoing care. If your symptoms [...] Instructions: With: Address: When: DARWIN JONES [address] [place] [phone] Business (1) In 3 days 03/25/2023 Comments: [...] Patient Education Materials: Urinary Tract Infection, Adult, Rvsk-fe-Baah A MESSAGE TO ALL PATIENTS REGARDING OPIOIDS PRESCRIPTION OPIOIDS: WHAT YOU NEED TO KNOW Prescription opioids can be used to help relieve frqfvqgu-kc-ydpkwv pain and are often prescribed following a [...] of op (more content not included)... Normal [facility] HEMATOLOGYOrdered By: SYSTEM SYSTEM on 03-22-2023 [...] 34.8 g/dL Normal 31.4 - 36.0 gm/dL [facility] HemeAutoSS MCV (RBC) [Entitic vol] 91.6 fL Normal 80.0 - 100.0 fL [facility] HemeAutoSS Platelet mean volume (Bld) [Entitic vol] 7.6 fL Normal 6.4 - 10.8 fL [facility] HemeAutoSS Platelets (Bld) [#/Vol] 306.0 E9/L Normal 150.0 - 500.0 E9/L [facility] HemeAutoSS RBC (Bld) [#/Vol] 4.1 E12/L Low 4.3 - 5.9 E12/L [facility] HemeAutoSS WBC corrected for nucl RBC Auto (Bld) [#/Vol] 9.8 E9/L Normal 4.0 - 11.0 E9/L [facility] HemeAutoSS Hep Func Panelon 03-22-2023 Albumin [Mass/Vol] 4.2 g/dL Normal 3.3-5.0 [facility] Comment on above: Performed By: #### 2 932994, 0180708, 64292521, 3442929, 0703201, 6305365 #### [facility] [address] [place] [address] Albumin/Globulin (S) [Mass conc ratio] 1.4 Normal 1.1-2.2 [facility] Comment on above: Performed By: #### 2 466848, 9957932, 94655154, 3191064, 1327353, 5538157 #### [facility] [address] [place] [address] ALP [Catalytic activity/Vol] 54 Int._Unit/L Normal 21-98 [facility] Comment on above: Performed By: #### 2 459523, 8677018, 90093246, 0375803, 7458009, 4116639 #### [facility] [address] [place] [address] ALT No additional P-5'-P [Catalytic activity/Vol] 24 Int._Unit/L Normal 6-46 [facility] Comment on above: Performed By: #### 2 373043, 7073839, 68639268, 5384441, 2663215, 1976455 #### [facility] [address] [place] [address] AST [Catalytic activity/Vol] 18 Int._Unit/L Normal 5-43 [facility] Comment on above: Performed By: #### 2 589955, 9191337, 10803502, 3162397, 2846444, 3480862 #### [facility] [address] [place] [address] Bilirubin [Mass/Vol] 0.7 mg/dL Normal 0.0-1.1 [facility] Comment on above: Performed By: #### 2 886837, 5942971, 55843123, 6368619, 2415743, 0036352 #### [facility] [address] [place] [address] Bilirubin.direct [Mass/Vol] 0.1 mg/dL Normal 0.1-0.4 [facility] Comment on above: Performed By: #### 2 640702, 7064431, 75115686, 9447614, 6721987, 2168770 #### [facility] [address] [place] [address] Bilirubin.indirect [Mass or moles/Vol] 0.6 mg/dL Normal 0.1-0.9 [facility] Comment on above: Performed By: #### 2 722130, 5340652, 31649978, 0940670, 4423969, 2518240 #### [facility] [address] [place] [address] Globulin (S) [Mass/Vol] 3.1 g/dL Normal 1.4-4.0 [facility] Comment on above: Performed By: #### 2 616720, 7731598, 90780294, 8421541, 7899709, 0580351 #### [facility] [address] [place] [address] Protein [Mass/Vol] 7.3 g/dL Normal 6.0-7.8 [facility] Comment on above: Performed By: #### 2 710726, 6219152, 61645381, 8197600, 6461499, 9315313 #### [facility] [address] [place] [address] Lipase Levelon 03-22-2023 Lipase [Catalytic activity/Vol] 28 U/L Normal 13-58 [facility] Comment on above: Performed By: #### 2 623632, 2402097, 20796336, 3681093, 9813877, 2798750 #### [facility] [address] [place] [address] SEROLOGYOrdered By: Lucina Shaikh on 03-22-2023 HCG.beta subunit (U) [Moles/Vol] Negative Normal [facility] Man Sero U BetaHcg Qualon 03-22-2023 HCG.beta subunit (U) [Moles/Vol] Negative Normal [facility] Comment on above: Performed By: #### 2 000644, 9206963, 92130395, 5064937, 1149626, 4595495 #### [facility] [address] [place] [address] UA With Cult Reflexon 2022 Bacteria LM Ql (Urine sed) TRACE Normal Trace [facility] Comment on above: Performed By: #### 2 825731, 0552581, 70038282, 2389652, 4375848, 4894931 #### [facility] [address] [place] [address] Bilirubin Ql (U) Negative Normal Negative [facility] Comment on above: Performed By: #### 2 619434, 9641275, 65830560, 0732897, 8991179, 2320588 #### [facility] [address] [place] [address] Clarity (U) SL CLOUDY Abnormal Clear [facility] Comment on above: Performed By: #### 2 940474, 0473071, 14734674, 6191634, 0930565, 0266275 #### [facility] [address] [place] [address] Color (U) YELLOW Normal Yellow [facility] Comment on above: Performed By: #### 2 759942, 9075149, 80898209, 9312225, 4650588, 5663177 #### [facility] [address] [place] [address] Crystals LM Ql (Urine sed) Present Normal [facility] Comment on above: Performed By: #### 2 460212, 6637439, 37835717, 0858613, 4711802, 3287743 #### [facility] [address] [place] [address] Epithelial cells.squamous LM.HPF (Urine sed) [#/Area] 0-2 Normal 0-2 [facility] Comment on above: Performed By: #### 2 950057, 7305861, 18885579, 9422577, 1632494, 0043742 #### [facility] [address] [place] [address] Glucose Test strip (U) [Mass/Vol] Negative Normal Negative [facility] Comment on above: Performed By: #### 2 605769, 9299502, 46634309, 1416332, 1683638, 9804730 #### [facility] [address] [place] [address] Hemoglobin Ql (U) 2+ Abnormal Negative [facility] Comment on above: Performed By: #### 2 186499, 6893434, 76391025, 8534947, 2290028, 4010611 #### [facility] [address] [place] [address] Ketones (U) [Mass/Vol] 1+ Abnormal Negative [facility] Comment on above: Performed By: #### 2 768020, 4559770, 71589882, 2545986, 9616623, 4889285 #### [facility] [address] [place] [address] Hoven.plasma/Lithiu m.RBC (Bld) [Mass ratio] 0-3 Normal 0-3 [facility] Comment on above: Performed By: #### 2 313831, 7387143, 48772120, 9214572, 7449890, 8214423 #### [facility] [address] [place] [address] Mucus Ql (Urine sed) TRACE Normal Fish [facility] Comment on above: Performed By: #### 2 149324, 6753522, 79230314, 6391389, 3845391, 0706837 #### [facility] [address] [place] [address] Nitrite Ql (U) Negative Normal Negative [facility] Comment on above: Performed By: #### 2 873400, 1181007, 25282650, 0201337, 6505659, 7501189 #### [facility] [address] [place] [address] pH (U) 5.5 [pH] Invalid Interpretation Code 5.0-9.0 [facility] Comment on above: Performed By: #### 2 967075, 4919057, 30210549, 3507036, 1524440, 9886634 #### [facility] [address] [place] [address] Protein (U) [Mass/Vol] Negative Normal Negative [facility] Comment on above: Performed By: #### 2 577229, 8176413, 82505673, 5370316, 2040006, 5526285 #### [facility] [address] [place] [address] Specific gravity (U) [Rel density] >=1.030 Invalid Interpretation Code 1.005-1.[address] [facility] Comment on above: Performed By: #### 2 300595, 2382171, 08232831, 8690123, 8559941, 8612838 #### [facility] [address] [place] [address] Type of Urine collection method Clean Catch Normal [facility] Comment on above: Performed By: #### 2 102627, 9038382, 64694925, 5917488, 6443624, 3313015 #### [facility] [address] [place] [address] Urobilinogen Qn (U) 0.2 {Aly'U}/dL Normal 0.0-1.0 [facility] Comment on above: Performed By: #### 2 073150, 5808068, 98583130, 7510534, 4590693, 2548160 #### [facility] [address] [place] [address] WBC Auto Ql (U) 2+ Abnormal Negative [facility] Comment on above: Performed By: #### 2 346272, 4771572, 61698179, 2947351, 0168354, 4115775 #### [facility] [address] [place] [address] WBC LM.HPF (Urine sed) [#/Area] 16-25 Abnormal 0-5 [facility] Comment on above: Performed By: #### 2 794704, 2242289, 66686096, 4528920, 6726190, 9199211 #### [facility] [address] [place] [address] URINALYSISOrdered By: Elizabeth Shaikh on 03-22-2023 Bacteria [...] Interpretation Code Negative [facility] UA Auto SS Hoven.plasma/Lithiu m.RBC (Bld) [Mass ratio] 0-3 /HPF Normal [...] FT UA Auto SS Urobilinogen Qn (U) 0.4550492 {Aly'U}/dL Normal 0.0 - 1.0 EU/dL [facility] UA Auto SS WBC Auto Ql (U) 2+ *ABN* (03/22/23 8:17 PM) Invalid Interpretation Code Negative [facility] UA Auto SS WBC LM.HPF (Urine sed) [#/Area] 16-25 /HPF Invalid Interpretation Code 0-5/HPF [facility] UA Auto SS eGFRon 03-22-2023 GFR/1.73 sq M.predicted among non-blacks MDRD (S/P/Bld) [Vol rate/Area] 133 mL/min/1.73 m2 Normal >=59 [facility] Comment on above: Order Comment: Order added by Discern Expert. Result Comment: Service Porter vinh kidney disease could be indicated at eGFR's of less than 60 mL/min/1.73m2. Kidney failure is indicated at less than 15 mL/min/1.73m2. Performed By: #### 2 800901, 5036064, 92246285, 0699221, 1226275, 3456780 #### [facility] [address] [place] [address] Alanine aminotransferase [En zymatic activity/volume] in Serum or PlasmaOrdered By: Zurdo Ortega on 02-28-2023 ALT [Catalytic activity/Vol] 21 U/L 7 [facility] HIV 1 and HIV-2 antibody ass ay with HIV-1 p24 antigen detectionOrdered By: Zurdo Ortega on 02-28-2023 HIV 1+2 Ab+HIV1 p24 Ag IA Ql Non-Reactive Non Reactive [facility] Comment on above: HIV NegativeHIV-1/HI V-2 antibodies and HIV-1 p24 antigen were NOTdetected. There is no laboratory evidence of HIV infection. Hepatitis B virus surface Ag [Presence] in Serum or Plasma by ImmunoassayOrdered By: Zurdo Ortega on 02-28-2023 HBV surface Ag IA Ql Negative Negative [facility] Comment on above: Performed at: [place] [id number] Director: Alexis Ashton PhD, Phone: [phone] Hepatitis C virus IgG Ab [Pr esence] in Serum or Plasma by ImmunoassayOrdered By: Zurdo Ortega on 02-28-2023 HCV IgG IA Ql Non-Reactive Non Reactive [facility] No Panel InformationOrdered By: Zurdo Ortega on 02-28-2023 Hepatitis C Interpretation See comment . [facility] Comment on above: Not infected with HC V unless early or acute infection issuspected (which may be delayed in an immunocompromisedindividual), or other evidence exists to indicate HCVinfection. Serum hepatitis B virus surf nikolas antibody detectionOrdered By: Zurdo Ortega on 02-28-2023 HBV surface Ab Ql (S) Reactive . [facility] Comment on above: Non Reactive: Incons istent with immunity, less than 10 mIU/mL Reactive: Consistent with immunity, greater than 9.9 mIU/mL PAP ACOG PANEL 2: 21 to 29on 12-17-2022 . . [facility] Comment on above: Performed By: #### 4 524031 #### [facility] [address] [place] [address] [address] Regine Fortune Age Gdln ACOG Testing Normal [facility] Comment on above: Performed By: #### 4 740320 #### [facility] [address] [place] [address] [address] Regine Fortune DIAGNOSIS: Comment [facility] Comment on above: Result Comment: NEGA TIVE FOR INTRAEPITHELIAL LESION OR MALIGNANCY. Performed By: #### 4 662427 #### [facility] [address] [place] [address] Dr. Regine Fortune Methodology: Comment [facility] Comment on above: Result Comment: This liquid based ThinPrep(R) pap test was screened with the use of an image guided system. Performed By: #### 4 347086 #### [facility] [address] [place] [address] Dr. Regine Fortune Note: Comment [facility] Comment on above: Result Comment: The Pap smear is a screening test designed to aid in the detection of premalignant and malignant conditions of the uterine cervix. It is not a diagnostic procedure and should not be used as the sole means of detecting cervical cancer. Both false-positive and false-negative reports do occur. . Performed By: #### 4 011007 #### [facility] [address] [place] [address] Dr. Regine Fortune Performed by: Comment Normal [facility] Comment on above: Result Comment: Amna Hernandes Dip Tanker (ASCP) Performed By: #### 4 751682 #### [facility] [address] [place] [address] Dr. Regine Fortune Reflex Criteria: Comment [facility] Comment on above: Result Comment: The HPV DNA reflex criteria were not met with this specimen result therefore, no HPV testing was performed. . Performed By: #### [id number] #### [facility] [address] [place] [address] Dr. Regine Fortune Specimen adequacy: Comment [facility] Comment on above: Result Comment: Sati sfactory for evaluation. Endocervical and/or squamous metaplastic cells (endocervical component) are present. Areas of partially obscuring inflammatory exudate are present. Performed By: #### [id number] #### [facility] [address] [address] [address] Regine Fortune Thyrotropin [Units/volume] i n Serum or PlasmaOrdered By: Brain Way on 12-10-2022 TSH Qn 2.86 m[IU]/L 0.45-5.33 [facility] Thyroxine (T4) free [Mass/vo lume] in Serum or PlasmaOrdered By: Brain Way on 12-10-2022 Free T4 [Mass/Vol] 0.94 ng/dL 0.61-1.12 [facility] Albumin [Mass/volume] in Ser um or PlasmaOrdered By: Ofelia Hester on 10-16-2022 Albumin [Mass/Vol] 4.1 g/dL 3.2-5.5 [facility] Alkaline phosphatase [Enzyma tic activity/volume] in Serum or PlasmaOrdered By: Ofelia Hester on 10-16-2022 ALP [Catalytic activity/Vol] 56 U/L 32-92 [facility] Amylaseon 10-16-2022 Amylase 43 U/L Normal 28-100 U/L [facility] Amylase [Enzymatic activity/ volume] in Serum or PlasmaOrdered By: Ofelia Hester on 10-16-2022 Amylase [Catalytic activity/Vol] 43 U/L 28-100 [facility] Aspartate aminotransferase [ Enzymatic activity/volume] in Serum or PlasmaOrdered By: Ofelia Hester on 10-16-2022 AST [Catalytic activity/Vol] 16 U/L 10-42 [facility] Bilirubin.total [Mass/volume ] in Serum or PlasmaOrdered By: Ofelia Hester on 10-16-2022 Bilirubin [Mass/Vol] 0.6 mg/dL 0.3-1.2 [facility] Calcium [Mass/volume] in Ser um or PlasmaOrdered By: Ofelia Hester on 10-16-2022 Calcium [Mass/Vol] 9.3 mg/dL 8.2-10.2 [facility] Carbon dioxide, total [Moles /volume] in Serum or PlasmaOrdered By: Ofelia Hester on 10-16-2022 CO2 [Moles/Vol] 22.1 mmol/L 22.0-30.0 [facility] Chloride [Moles/volume] in S ghada or PlasmaOrdered By: Ofelia Hester on 10-16-2022 Chloride [Moles/Vol] 105 mmol/L 95-114 [facility] Comprehensive Metabolic Pane samy 10-16-2022 Albumin [Mass/Vol] 4.301008 g/dL Normal 3.2-5.5 g/dL [facility] ALT [Catalytic activity/Vol] 17 U/L Normal 10-60 U/L [facility] Bilirubin [Mass/Vol] 0.0253002 mg/dL Normal 0.3- 1.2 mg/dL [facility] Calcium [Mass/Vol] 9.4224011 mg/dL Normal 8.2-10 .2 mg/dL [facility] CO2 [Moles/Vol] 22.68615512 mmol/L Normal 22.0-3 0.0 mmol/L [facility] Creatinine [Mass/Vol] 0.22673581 mg/dL Normal 0. 44-1.03 mg/dL [facility] Potassium [Moles/Vol] 4.93725150 mmol/L Normal 3 .5-5.1 mmol/L [facility] Protein [Mass/Vol] 6.013310 g/dL Normal 6.1-7.9 g/dL [facility] Comprehensive Metabolic Panel > 60 [facility] Comprehensive Metabolic Panel 2.5 g/dL [facility] Creatinine and Glomerular fi ltration rate.predicted panel (S/P/Bld)Ordered By: Ofelia Hester on 10-16-2022 Creatinine [Mass/Vol] 0.55 mg/dL 0.44-1.03 [facility] Estimated glomerular filtrat ion rate (GFR) non- AmericanOrdered By: Ofelia Hester on 10-16-2022 GFR/1.73 sq M.predicted among non-blacks MDRD (S/P/Bld) [Vol rate/Area] > 60 mL/Min [facility] Globulin Calc (S) [Mass/Vol] Ordered By: Ofelia Hester on 10-16-2022 Globulin (S) [Mass/Vol] 2.5 g/dL [facility] Glucose [Mass/volume] in Ser um or PlasmaOrdered By: Ofelia Hester on 10-16-2022 Glucose [Mass/Vol] 86 mg/dL 70-100 [facility] Comment on above: ADA recommended refe rence rangeRandom Glucose Reference Range is dependent on time and content of last meal. Glucose of more than 200 mg/dL in a nonstressed, ambulatory subject supports the diagnosis of Diabetes Mellitus. Laboratory - Chemistry and C hemistry - challengeOrdered By: Ofelia Hester on 10-16-2022 Lipase [Catalytic activity/Vol] 35.0 U/L 22-51 [facility] Lipaseon 10-16-2022 Lipase [Catalytic activity/Vol] 35.18845 U/L Normal 22-51 U/L [facility] No Panel InformationOrdered By: Ofelia Hester on 10-16-2022 Estimated GFR () > 60 mL/Min [facility] Comment on above: GFR estimated refere nce range: According to KDOQI guidelines, <60 ml/min/1.73m2 is sufficient to diagnose a patient with chronic kidney disease. Pharmacy Creatinine Clearance (Chem N/A [facility] Potassium [Moles/volume] in Serum or PlasmaOrdered By: Ofelia Hester on 10-16-2022 Potassium [Moles/Vol] 4.3 mmol/L 3.5-5.1 [facility] Protein [Mass/volume] in Ser um or PlasmaOrdered By: Ofelia Hester on 10-16-2022 Protein [Mass/Vol] 6.6 g/dL 6.1-7.9 [facility] Serum or plasma alanine galaviz otransferase measurement without P-5'-P (enzymatic activiOrdered By: Ofelia Hester on 10-16-2022 ALT No additional P-5'-P [Catalytic activity/Vol] 17 U/L 10-60 [facility] Serum or plasma albumin/glob ulin mass ratioOrdered By: Ofelia Hester on 10-16-2022 Albumin/Globulin [Mass ratio] 1.6 {ratio} [facility] Serum or plasma anion gap de terminationOrdered By: Ofelia Hester on 10-16-2022 Anion gap [Moles/Vol] 13.2 mmol/L 6.0-15.0 [facility] Sodium [Moles/volume] in Ser um or PlasmaOrdered By: Ofelia Hester on 10-16-2022 Sodium [Moles/Vol] 136 mmol/L 136-146 [facility] Urea nitrogen [Mass/volume] in Serum or PlasmaOrdered By: Ofelia Hester on 10-16-2022 Urea nitrogen [Mass/Vol] 11 mg/dL 9-23 [facility] T4 FREE/FREE THYROXon 2021 Free T4 [Mass/Vol] 1.3 ng/dL 0.9 - 1.7 ng/dL [facility] TSH BLDon 07-14-2022 TSH Qn 2.480 m[IU]/L 0.270 - 4.200 mIU/L [facility] VITAMIN B12 BLOODon 07-14-20 Cobalamin (Vitamin B12) [Mass/Vol] 267 pg/mL 232 - 1,245 pg/mL [facility] Quick Fluon 06-04-2022 FLUAV Ab CF (S) [Titer] Negative [facility] Other FLUBV Ab CF (S) [Titer] Negative [facility] Quick Strepon 06-04-2022 S. pyogenes Org specific cx Ql (Throat) Negative [facility] Strep [facility] Other SARS-CoV-2 (COVID-19) RNA NA A+probe Ql (Resp)on 06-04-2022 SARS-CoV-2 (COVID-19) RNA LAUREN+probe Ql (Unsp spec) Negative [facility] Other TSH DL <= 0.005 mIU/L QnOrde red By: Darwin Jones on 04-14-2022 TSH Qn 6.39 m[IU]/L 0.45-5.33 [facility] Thyroxine (T4) free [Mass/vo lume] in Serum or PlasmaOrdered By: Darwin Jones on 04-14-2022 Free T4 [Mass/Vol] 0.82 ng/dL 0.61-1.12 [facility] Triiodothyronine (T3) Free [ Mass/volume] in Serum or PlasmaOrdered By: Darwin Jones on 04-14-2022 Free T3 [Mass/Vol] 4.08 pg/mL 2.50-3.90 [facility] Serum or plasma calcium luis urement (mass/volume)Ordered By: Saad Valera on 04-06-2022 Calcium [Mass/Vol] 9.4 mg/dL 8.2-10.2 [facility] Serum or plasma intact parat hyroid hormone measurement (mass/volume)Ordered By: Saad Valera on 04-06-2022 Parathyrin.intact [Mass/Vol] 54.8 pg/mL [facility] CHEMISTRYOrdered By: Orion ROP User on 02-18-2022 Glucose [Mass/Vol] 106 mg/dL High 55 - 99 mg/dL [facility] POC Subsection Comment on above: Result Comment: Aurelia breana Meter POC Device SN [id number] Invalid Interpretation Code [facility] POC Subsection POC User ID [id number] Invalid Interpretation Code [facility] POC Subsection POC Username ZHOU OBINNA Invalid Interpretation Code [facility] P[facility] Subsection Serum or plasma thyroglobuli n antibody assay (units/volume)Ordered By: Darwin Jones on 02-13-2022 Thyroglobulin Ab Qn 971.2 [IU]/mL 0.0-0.9 [facility] Comment on above: Thyroglobulin Antibo dy measured by [employer] Methodology Performed at: - [facility] [id number] [employer]: Alexis Ashton PhD, Phone: [phone] Serum or plasma thyroperoxid ase antibody assay (units/volume)Ordered By: Darwin Jones on 02-13-2022 TPO Ab Qn 327 [IU]/mL 0-34 [facility] Thyroxine (T4) free [Mass/vo lume] in Serum or PlasmaOrdered By: Darwin Jones on 02-13-2022 Free T4 [Mass/Vol] 0.66 ng/dL 0.61-1.12 [facility] Triiodothyronine (T3) Free [ Mass/volume] in Serum or PlasmaOrdered By: Darwin Jones on 02-13-2022 Free T3 [Mass/Vol] 4.04 pg/mL 2.50-3.90 [facility] Albumin [Mass/volume] in Ser um or PlasmaOrdered By: Addi Ortega on 02-10-2022 Albumin [Mass/Vol] 4.1 g/dL 3.2-5.5 [facility] Basophils Auto (Bld) [#/Vol] Ordered By: Addi Ortega on 02-10-2022 Basophils (Bld) [#/Vol] 0.0 10*3/uL 0.0-0.2 [facility] Basophils/100 WBC Auto (Bld) Ordered By: Addi Ortega on 02-10-2022 Basophils/100 WBC (Bld) 0.4 % . [facility] Blood hemoglobin measurement (mass/volume)Ordered By: Addi Ortega on 02-10-2022 Hemoglobin (Bld) [Mass/Vol] 14.1 g/dL 11.8-15.4 [facility] Blood leukocytes automated c ount (number/volume)Ordered By: Addi Ortega on 02-10-2022 WBC (Bld) [#/Vol] 7.3 10*3/uL 4.5-11.0 [facility] Cholesterol [Mass/volume] in Serum or PlasmaOrdered By: Addi Ortega on 02-10-2022 Cholesterol [Mass/Vol] 195 mg/dL 140-200 [facility] Comment on above: Chol less than 200 m g/dl low risk Chol 201-239 mg/dl borderline risk Chol 240 mg/dl and greater high risk Cholesterol in LDL Calc [Mas s/Vol]Ordered By: Addi Ortega on 02-10-2022 Cholesterol in LDL [Mass/Vol] 113 mg/dL 0-100 [facility] Comment on above: LDL ATP III CLASSIFI CATION LDL less than 100 mg/dL Optimal LDL 100-129 mg/dL Near or above optimal LDL 130-159 mg/dL Borderline high LDL 160-189 mg/dL High LDL greater than 189 mg/dL Very high Cholesterol in VLDL Calc [Ma ss/Vol]Ordered By: Addi Ortega on 02-10-2022 Cholesterol in VLDL [Mass/Vol] 26 mg/dL [facility] Creatinine and Glomerular fi ltration rate.predicted panel (S/P/Bld)Ordered By: Addi Ortega on 02-10-2022 Creatinine [Mass/Vol] 0.71 mg/dL 0.44-1.03 [facility] Eosinophils Auto (Bld) [#/Vo l]Ordered By: Addi Ortega on 02-10-2022 Eosinophils (Bld) [#/Vol] 0.1 10*3/uL 0.0-0.45 [facility] Eosinophils/100 WBC Auto (Bl d)Ordered By: Addi Ortega on 02-10-2022 Eosinophils/100 WBC (Bld) 1.5 % . [facility] Erythrocyte distribution wid th Auto (RBC) [Ratio]Ordered By: Addi Ortega on 02-10-2022 Erythrocyte distribution width (RBC) [Ratio] 14.0 % 11.9-15.3 [facility] Estimated glomerular filtrat ion rate (GFR) non- AmericanOrdered By: Addi Ortega on 02-10-2022 GFR/1.73 sq M.predicted among non-blacks MDRD (S/P/Bld) [Vol rate/Area] > 60 mL/Min [facility] Globulin Calc (S) [Mass/Vol] Ordered By: Addi Ortega on 02-10-2022 Globulin (S) [Mass/Vol] 2.8 g/dL [facility] Hematocrit Auto (Bld) [Volum e fraction]Ordered By: Addi Ortega on 02-10-2022 Hematocrit (Bld) [Volume fraction] 40.3 % 34.0-46.4 [facility] Laboratory - Chemistry and C hemistry - challengeOrdered By: Addi Ortega on 02-10-2022 Glucose [Mass/Vol] 90 mg/dL 70-100 [facility] Laboratory - Hematology and Cell countsOrdered By: Addi Ortega on 02-10-2022 Nucleated RBC/100 WBC (Bld) [Ratio] 0.1 % 0-0.5 [facility] Lymphocytes Auto (Bld) [#/Vo l]Ordered By: Addi Ortega on 02-10-2022 Lymphocytes (Bld) [#/Vol] 3.3 10*3/uL 1.00-4.8 [facility] Lymphocytes/100 WBC Auto (Bl d)Ordered By: Addi Ortega on 02-10-2022 Lymphocytes/100 WBC (Bld) 45.2 % . [facility] MCH Auto (RBC) [Entitic mass ]Ordered By: Addi Ortega on 02-10-2022 MCH (RBC) [Entitic mass] 33.0 pg 24.7-34.3 [facility] MCHC Auto (RBC) [Mass/Vol]Or dered By: Addi Ortega on 02-10-2022 MCHC (RBC) [Mass/Vol] 34.9 g/dL 32.0-35.0 [facility] MCV Auto (RBC) [Entitic vol] Ordered By: Addi Ortega on 02-10-2022 MCV (RBC) [Entitic vol] 94.6 fL 80-100 [facility] Monocyte %Ordered By: Addi Ortega on 02-10-2022 Monocyte % 134 mg/dL 35-149 [facility] Comment on above: TRIG ATP III CLASSIF ICATION TRIG less than 150 mg/dL Normal TRIG 150-199 mg/dL Borderline high TRIG 200-500 mg/dL High TRIG greater than 500 mg/dL Very high Standard traceable to the Center for Disease Conrtrol and Prevention (CDC) test method. Monocytes Auto (Bld) [#/Vol] Ordered By: Addi Ortega on 02-10-2022 Monocytes (Bld) [#/Vol] 0.5 10*3/uL 0.0-0.8 [facility] Monocytes/100 WBC Auto (Bld) Ordered By: Addi Ortega on 02-10-2022 Monocytes/100 WBC (Bld) 6.3 % . [facility] Neutrophils Auto (Bld) [#/Vo l]Ordered By: Addi Ortega on 02-10-2022 Neutrophils (Bld) [#/Vol] 3.4 10*3/uL 1.8-7.7 [facility] Neutrophils/100 WBC Auto (Bl d)Ordered By: Addi Ortega on 02-10-2022 Neutrophils/100 WBC (Bld) 46.6 % . [facility] No Panel InformationOrdered By: Addi Ortega on 02-10-2022 Estimated GFR () > 60 mL/Min [facility] Comment on above: GFR estimated refere nce range: According to KDOQI guidelines, <60 ml/min/1.73m2 is sufficient to diagnose a patient with chronic kidney disease. Nicotine Metabolite Negative Cutoff=25 [facility] Comment on above: Performed at: [address] [id number] [employer]: Catherine Mendoza MD, Phone: [phone] Pharmacy Creatinine Clearance (Chem N/A [facility] Platelet mean volume Auto (B ld) [Entitic vol]Ordered By: Addi Ortega on 02-10-2022 Platelet mean volume (Bld) [Entitic vol] 8.4 fL 6.3-10.7 [facility] Platelets Auto (Bld) [#/Vol] Ordered By: Addi Ortega on 02-10-2022 Platelets (Bld) [#/Vol] 321 10*3/uL 150-450 [facility] Protein [Mass/volume] in Ser um or PlasmaOrdered By: Addi Ortega on 02-10-2022 Protein [Mass/Vol] 6.9 g/dL 6.1-7.9 [facility] RBC Auto (Bld) [#/Vol]Ordere d By: Addi Ortega on 02-10-2022 RBC (Bld) [#/Vol] 4.26 10*6/uL 3.60-5.00 [facility] Serum or plasma alanine galaviz otransferase measurement without P-5'-P (enzymatic activiOrdered By: Addi Ortega on 02-10-2022 ALT No additional P-5'-P [Catalytic activity/Vol] 26 U/L 10-60 [facility] Serum or plasma albumin/glob ulin mass ratioOrdered By: Addi Ortega on 02-10-2022 Albumin/Globulin [Mass ratio] 1.5 {ratio} [facility] Serum or plasma alkaline hosea sphatase measurement (enzymatic activity/volume)Ordered By: Addi Ortega on 02-10-2022 ALP [Catalytic activity/Vol] 47 U/L 32-92 [facility] Serum or plasma aspartate am inotransferase measurement (enzymatic activity/volume)Ordered By: Addi Ortega on 02-10-2022 AST [Catalytic activity/Vol] 18 U/L 10-42 [facility] Serum or plasma calcium luis urement (mass/volume)Ordered By: Addi Ortega on 02-10-2022 Calcium [Mass/Vol] 9.3 mg/dL 8.2-10.2 [facility] Serum or plasma chloride radha surement (moles/volume)Ordered By: Addi Ortega on 02-10-2022 Chloride [Moles/Vol] 99 mmol/L 95-114 [facility] Serum or plasma high density lipoprotein (HDL) cholesterol measurementOrdered By: Addi Ortega on 02-10-2022 Cholesterol in HDL [Mass/Vol] 55 mg/dL 35-85 [facility] Comment on above: HDL CHOL ATP-III CLA SSIFICATION Cardiovascular Risk HDL > or equal to 60 mg/dL LOW HDL < 40 mg/dL HIGH Serum or plasma potassium me asurement (moles/volume)Ordered By: Addi Ortega on 02-10-2022 Potassium [Moles/Vol] 4.1 mmol/L 3.5-5.1 [facility] Serum or plasma sodium measu rement (moles/volume)Ordered By: Addi Ortega on 02-10-2022 Sodium [Moles/Vol] 135 mmol/L 136-146 [facility] Serum or plasma total biliru bin measurement (mass/volume)Ordered By: Addi Ortega on 02-10-2022 Bilirubin [Mass/Vol] 0.7 mg/dL 0.3-1.2 [facility] Serum or plasma total carbon dioxide measurement (moles/volume)Ordered By: Addi Ortega on 02-10-2022 CO2 [Moles/Vol] 23.3 mmol/L 22.0-30.0 [facility] Serum or plasma total choles terol/high density lipoprotein (HDL) cholesterol mass ratOrdered By: Addi Ortega on 02-10-2022 Cholesterol.total/Cho lesterol in HDL [Mass ratio] 3.5 {ratio} <5.0 [facility] Serum or plasma urea nitroge n measurement (mass/volume)Ordered By: Addi Ortega on 02-10-2022 Urea nitrogen [Mass/Vol] 17 mg/dL 9- [facility] TSH DL <= 0.005 mIU/L QnOrde red By: Addi Ortega on 02-10-2022 TSH Qn 57.67 m[IU]/L 0.45-5.33 [facility] No Panel Informationon 09-03 6 {mm/hr} Normal 0-34 [facility] DO Work Phone: Office [...] Vital Signs Recorded: 03Sep2021 10:02AMRecorded: 03Sep2021 09:55AM [id number], LUE, [id number], RUE, Sitting [id number], LUE, [id number], RUE, Sitting Heart Rate72, Apical Height5 ft 7 in [id number] lb 9.6 oz BMI Uogapinkmq20.36 kg/m2 BSA Calculated2.05 Tobacco Useb) No EKG [...] . Sign (more content not included)... Normal [facility] Tobacco Screening.on 022 Tobacco use status [facility] Work Phone: Vital Signs Date Time Vital Sign Value Performing Clinician Facility 09-07-2024 14:44-0500 Body mass index (BMI) [Ratio] 39.75 kg/m2 Mya MCMILLAN Work Phone: [facility] 09-07-2024 14:44-0500 Body weight 115.12 kg Mya MCMILLAN Work Phone: [facility] 09-07-2024 14:44-0500 Diastolic blood pressure 82 mm[Hg] Mya MCMILLAN Work Phone: [facility] 09-07-2024 14:44-0500 Systolic blood pressure 120 mm[Hg] Mya MCMILLAN Work Phone: [facility] 09-06-2024 14:04-0500 Body temperature 97.88 [degF] Flash Franco [facility] 09-06-2024 14:04-0500 Diastolic blood pressure 77 mm[Hg] Flash Franco [facility] 09-06-2024 14:04-0500 Heart rate 101 /min Flash Franco [facility] 09-06-2024 14:04-0500 Respiratory rate 18 /min Flash Franco [facility] 09-06-2024 14:04-0500 SaO2% (BldA) [Mass fraction] 99 % Flash Franco [facility] 09-06-2024 14:04-0500 Systolic blood pressure 122 mm[Hg] Flash Franco [facility] 09-05-2024 15:45-0500 Hourly Rounding Rogelio Nath [facility] Comment on above: Result Comment: discharge instructions g ivelizabeth. monitors off and pt up to dress. 09-05-2024 15:35-0500 Hourly Rounding Rogelio Pham [facility] Comment on above: Result Comment: pt was able to keep spri te and lemon ice down. Wants to go home. 09-05-2024 14:49-0500 Hourly Rounding Rogelio Nath [facility] Comment on above: Result Comment: sprite, lemon ice and ju ice given per pt request. 09-05-2024 07:35-0500 Body temperature 98.24 [degF] Rogelio Nath [facility] 09-05-2024 07:35-0500 Diastolic blood pressure 42 mm[Hg] Rogelio Nath [facility] 09-05-2024 07:35-0500 Heart rate 109 /min Rogelio Nath [facility] 09-05-2024 07:35-0500 Mean blood pressure 65 mm[Hg] Rogelio Nath [facility] 09-05-2024 07:35-0500 Respiratory rate 18 /min Rogelio Nath [facility] 09-05-2024 07:35-0500 Systolic blood pressure 111 mm[Hg] Rogelio Nath [facility] 09-05-2024 07:30-0500 Blood Pressure Location Rogelio Nath [facility] 09-05-2024 04:32-0500 Blood Pressure Location Rogelio Nath [facility] 09-05-2024 04:32-0500 Body temperature 98.24 [degF] Rogelio Nath [facility] 09-05-2024 04:32-0500 Diastolic blood pressure 72 mm[Hg] Rogelio Nath [facility] 09-05-2024 04:32-0500 Heart rate 104 /min Rogelio Nath [facility] 09-05-2024 04:32-0500 Mean blood pressure 90 mm[Hg] Rogelio Nath [facility] 09-05-2024 04:32-0500 Respiratory rate 16 /min Rogelio Nath [facility] 09-05-2024 04:32-0500 SaO2% (BldA) [Mass fraction] 98 % Rogelio Nath [facility] 09-05-2024 04:32-0500 Systolic blood pressure 127 mm[Hg] Rogelio Nath [facility] 09-05-2024 04:00-0500 Diastolic blood pressure 64 mm[Hg] Rogelio Nath [facility] 09-05-2024 04:00-0500 Heart rate 115 /min Rogelio Nath [facility] 09-05-2024 04:00-0500 Mean blood pressure 86 mm[Hg] Rogelio Nath [facility] 09-05-2024 04:00-0500 Systolic blood pressure 129 mm[Hg] Rogelio Nath [facility] 09-05-2024 03:06-0500 Body temperature 97.7 [degF] Rogelio Nath [facility] 09-05-2024 03:06-0500 Heart rate 128 /min Rogelio Nath [facility] 09-05-2024 03:06-0500 Respiratory rate 20 /min Rogelio Nath [facility] 09-05-2024 03:06-0500 SaO2% (BldA) [Mass fraction] 98 % Rogelio Nath [facility] 08-25-2024 12:21-0500 [facility] [employer] Work Phone: [facility] 08-25-2024 12:21-0500 Body mass index (BMI) [Ratio] 39.6 kg/m2 [facility] [employer] Work Phone: [facility] 08-25-2024 12:21-0500 Body weight 114.75 kg Darwin Adim8erwood [employer] Work Phone: [facility] 08-25-2024 12:21-0500 Diastolic blood pressure 84 mm[Hg] Darwin Roberterwood [employer] Work Phone: [facility] 08-25-2024 12:21-0500 Heart rate 108 /min Darwin Roberterwood [employer] Work Phone: [facility] 08-25-2024 12:21-0500 Respiratory rate 18 /min Darwin Roberterwood [employer] Work Phone: [facility] 08-25-2024 12:21-0500 SaO2% (BldA) [Mass fraction] 98 % Darwin Robertermacy [employer] Work Phone: [facility] 08-25-2024 12:21-0500 Systolic blood pressure 132 mm[Hg] Darwin Roberterwood [employer] Work Phone: [facility] 08-23-2024 11:00-0500 Body mass index (BMI) [Ratio] 40.16 kg/m2 Brain Seamus DO Work Phone: [facility] 08-23-2024 11:00-0500 Body weight 116.3 kg Brain Seamus DO Work Phone: [facility] 08-23-2024 11:00-0500 Diastolic blood pressure 78 mm[Hg] Brain Seamus DO Work Phone: [facility] 08-23-2024 11:00-0500 Systolic blood pressure 120 mm[Hg] Brain Seamus DO Work Phone: [facility] 07-11-2024 13:09-0500 Body mass index (BMI) [Ratio] 38.97 kg/m2 Brain Seamus DO Work Phone: [facility] 07-11-2024 13:09-0500 Body weight 112.86 kg Brain Seamus DO Work Phone: [facility] 07-11-2024 13:09-0500 Diastolic blood pressure 76 mm[Hg] Brain Seamus DO Work Phone: [facility] 07-11-2024 13:09-0500 Systolic blood pressure 120 mm[Hg] Brain Seamus DO Work Phone: [facility] 06-28-2024 08:04-0500 Body weight Darwin Jones [employer] Work Phone: [facility] Comment on above: Not provided. 2024 14:13-0500 Diastolic blood pressure 78 mm[Hg] Hayden Reilly MD Work Phone: [facility] 2024 14:13-0500 Heart rate 88 /min Hayden Reilly MD Work Phone: [facility] 2024 14:13-0500 Systolic blood pressure 125 mm[Hg] Hayden Reilly MD Work Phone: [facility] 2024 13:18-0500 Body height 170.2 cm Hayden Reilly MD Work Phone: [facility] 06-12-2024 10:19-0400 Body mass index (BMI) [Ratio] 38.37 kg/m2 Brain Seamus DO Work Phone: [facility] 06-12-2024 10:19-0400 Body weight 111.13 kg Brain Seamus DO Work Phone: [facility] 06-12-2024 10:19-0400 Diastolic blood pressure 80 mm[Hg] Brain Seamus DO Work Phone: [facility] 06-12-2024 10:19-0400 Systolic blood pressure 122 mm[Hg] Brain Seamus DO Work Phone: [facility] [facility] 05-11-2024 11:04-0400 Body height 170.18 cm [employer] Darwin Jones Work Phone: [facility] 05-11-2024 11:04-0400 Body mass index (BMI) [Ratio] 38.2 kg/m2 [employer] Darwin Adim8erCoskata Work Phone: [facility] 05-11-2024 11:04-0400 Body temperature 97.8 [degF] [employer] Darwin Adim8erCoskata Work Phone: [facility] 05-11-2024 11:04-0400 Body weight 110.67 kg [employer] Darwin Adim8erCoskata Work Phone: [facility] 05-11-2024 11:04-0400 Diastolic blood pressure 74 mm[Hg] [employer] Darwin Adim[employer]erCoskata Work Phone: [facility] 05-11-2024 11:04-0400 Heart rate 90 /min [employer] Darwin Adim[employer]erCoskata Work Phone: [facility] 05-11-2024 11:04-0400 Respiratory rate 20 /min [employer] Darwin Adim[employer]erCoskata Work Phone: [facility] 05-11-2024 11:04-0400 SaO2% (BldA) [Mass fraction] 98 % [employer] Darwin Adim[employer]erCoskata Work Phone: [facility] 05-11-2024 11:04-0400 Systolic blood pressure 126 mm[Hg] [employer] Darwin Adim[employer]erCos[employer]ata Work Phone: [facility] 05-10-2024 13:50-0400 Body mass index (BMI) [Ratio] 38.39 kg/m2 Brain Seamus DO Work Phone: [facility] 05-10-2024 13:50-0400 Body weight 111.19 kg Brain Seamus DO Work Phone: [facility] 05-10-2024 13:50-0400 Diastolic blood pressure 76 mm[Hg] Brain Seamus DO Work Phone: [facility] 05-10-2024 13:50-0400 Systolic blood pressure 120 mm[Hg] Brain Seamus DO Work Phone: [facility] 04-20-2024 10:37-0400 Body mass index (BMI) [Ratio] 38.53 kg/m2 Brain Seamus DO Work Phone: [facility] 04-20-2024 10:37-0400 Body weight 111.58 kg Brain Seamus DO Work Phone: [facility] 04-20-2024 10:37-0400 Diastolic blood pressure 76 mm[Hg] Brain Seamus DO Work Phone: [facility] 04-20-2024 10:37-0400 Systolic blood pressure 122 mm[Hg] Brain Seamus DO Work Phone: [facility] 04-07-2024 09:42-0400 Body mass index (BMI) [Ratio] 38.86 kg/m2 Nom Nurse [facility] 04-07-2024 09:42-0400 Body weight 112.55 kg Nom Nurse [facility] 04-07-2024 09:42-0400 Diastolic blood pressure 70 mm[Hg] Nom Nurse [facility] 04-07-2024 09:42-0400 Systolic blood pressure 120 mm[Hg] Nom Nurse [facility] 03-18-2024 11:50-0400 Diastolic blood pressure 83 mm[Hg] [place] [facility] 03-18-2024 11:50-0400 Heart rate 75 /min [place] [facility] 03-18-2024 11:50-0400 Mean blood pressure 97 mm[Hg] Toan Steine [facility] 03-18-2024 11:50-0400 Respiratory rate 16 /min Toan Steine [facility] 03-18-2024 11:50-0400 SaO2% (BldA) [Mass fraction] 98 % Toan Steine [facility] 03-18-2024 11:50-0400 Systolic blood pressure 126 mm[Hg] Toan Jaya [facility] 03-18-2024 09:46-0400 Hourly Rounding [place] [facility] 03-18-2024 09:11-0400 Hourly Rounding [place] [facility] 03-18-2024 08:10-0400 Body temperature 98.6 [degF] [place] [facility] 03-18-2024 08:10-0400 Diastolic blood pressure 91 mm[Hg] [place] [facility] 03-18-2024 08:10-0400 Heart rate 98 /min [place] [facility] 03-18-2024 08:10-0400 Hourly Rounding [place] [facility] 03-18-2024 08:10-0400 Respiratory rate 17 /min [place] [facility] 03-18-2024 08:10-0400 SaO2% (BldA) [Mass fraction] 98 % [place] [facility] 03-18-2024 08:10-0400 Systolic blood pressure 135 mm[Hg] [place] [facility] 01-25-2024 08:59-0400 Body height 170.18 cm [employer]Alayna Jones Work Phone: [facility] 01-25-2024 08:59-0400 Body mass index (BMI) [Ratio] 37.4 kg/m2 [employer]Alayna Joneserwood Work Phone: [facility] 01-25-2024 08:59-0400 Body temperature 98 [degF] [employer]Alayna LaraCoskata Work Phone: [facility] 01-25-2024 08:59-0400 Body weight 108.4 kg [employer] Darwin Easterwood Work Phone: [facility] 01-25-2024 08:59-0400 Diastolic blood pressure 80 mm[Hg] [employer] Darwin Easterwood Work Phone: [facility] 01-25-2024 08:59-0400 Heart rate 98 /min [employer] Darwin Easterwood Work Phone: [facility] 01-25-2024 08:59-0400 Respiratory rate 20 /min [employer] Darwin Easterwood Work Phone: [facility] 01-25-2024 08:59-0400 SaO2% (BldA) [Mass fraction] 99 % [employer] Darwin Easterwood Work Phone: [facility] 01-25-2024 08:59-0400 Systolic blood pressure 122 mm[Hg] [employer] Darwin Easterwood Work Phone: [facility] 12-24-2023 09:56-0400 Body height 170.18 cm [employer] Darwin Easterwood Work Phone: [facility] 12-24-2023 09:56-0400 Body mass index (BMI) [Ratio] 37.7 kg/m2 [employer] Darwin Easterwood Work Phone: [facility] 12-24-2023 09:56-0400 Body temperature 97.6 [degF] [employer] Darwin Easterwood Work Phone: [facility] 12-24-2023 09:56-0400 Body weight 109.31 kg [employer] Darwin Easterwood Work Phone: [facility] 12-24-2023 09:56-0400 Diastolic blood pressure 84 mm[Hg] [employer] Darwin Easterwood Work Phone: [facility] 12-24-2023 09:56-0400 Heart rate 102 /min [employer] Darwin Easterwood Work Phone: [facility] 12-24-2023 09:56-0400 Respiratory rate 20 /min [employer] Darwin Eastermacy Work Phone: [facility] 12-24-2023 09:56-0400 SaO2% (BldA) [Mass fraction] 98 % [employer] Darwin Jonesermacy Work Phone: [facility] 12-24-2023 09:56-0400 Systolic blood pressure 126 mm[Hg] [employer] Darwin Easterwood Work Phone: [facility] 11-25-2023 09:01-0400 Body height 170.18 cm [employer] OFF[employer]ERAlayna Jonesermacy Work Phone: [facility] 11-25-2023 09:01-0400 Body mass index (BMI) [Ratio] 37.7 kg/m2 [employer]Alayna Jonesermacy Work Phone: [facility] 11-25-2023 09:01-0400 Body temperature 97 [degF] [employer] Darwin Jonesermacy Work Phone: [facility] 11-25-2023 09:01-0400 Body weight 109.31 kg [employer]ERAlayna Jonesermacy Work Phone: [facility] 11-25-2023 09:01-0400 Diastolic blood pressure 76 mm[Hg] [employer] Darwin Easterwood Work Phone: [facility] 11-25-2023 09:01-0400 Heart rate 95 /min [employer] Darwin Eastermacy Work Phone: [facility] 11-25-2023 09:01-0400 Respiratory rate 20 /min [employer] Darwin Easterwood Work Phone: [facility] 11-25-2023 09:01-0400 SaO2% (BldA) [Mass fraction] 98 % [employer] Darwin Easterwood Work Phone: [facility] 11-25-2023 09:01-0400 Systolic blood pressure 120 mm[Hg] [employer] Darwin Easterwood Work Phone: [facility] 11-18-2023 08:03-0400 Body weight 110.68 kg Ruby Whittington MD Work Phone: [facility] 11-18-2023 08:03-0400 Diastolic blood pressure 92 mm[Hg] Ruby Whittington MD Work Phone: [facility] 11-18-2023 08:03-0400 Heart rate 100 /min Ruby Whittington MD Work Phone: [facility] 11-18-2023 08:03-0400 Systolic blood pressure 132 mm[Hg] Ruby Whittington MD Work Phone: [facility] 10-20-2023 09:05-0500 Body height 170.18 cm [employer] OFFICERAlayna Orosco Eastermacy Work Phone: [facility] 10-20-2023 09:05-0500 Body mass index (BMI) [Ratio] 38.3 kg/m2 [employer] Darwin Easterwood Work Phone: [facility] 10-20-2023 09:05-0500 Body temperature 98 [degF] [employer] Darwin Easterwood Work Phone: [facility] 10-20-2023 09:05-0500 Body weight 111.13 kg [employer] Darwin Easterwood Work Phone: [facility] 10-20-2023 09:05-0500 Diastolic blood pressure 78 mm[Hg] [employer] Darwin Easterwood Work Phone: [facility] 10-20-2023 09:05-0500 Heart rate 82 /min [employer]ERAlayna Edgara Easterwood Work Phone: [facility] 10-20-2023 09:05-0500 Respiratory rate 20 /min [employer] Darwin Easterwood Work Phone: [facility] 10-20-2023 09:05-0500 SaO2% (BldA) [Mass fraction] 98 % SHIRLEY Jones Work Phone: [facility] 10-20-2023 09:05-0500 Systolic blood pressure 124 mm[Hg] [employer]Alayna Jones Work Phone: [facility] 09-29-2023 10:41-0500 Blood Pressure Location [place] [facility] 09-29-2023 10:41-0500 Body temperature 98.24 [degF] [place] 09-29-2023 10:41-0500 Diastolic blood pressure 78 mm[Hg] [place] [facility] 09-29-2023 10:41-0500 Heart rate 95 /min [place] [facility] 09-29-2023 10:41-0500 SaO2% (BldA) [Mass fraction] 97 % [place] [facility] 09-29-2023 10:41-0500 Systolic blood pressure 122 mm[Hg] [place] [facility] 09-21-2023 09:00-0500 Body height 170.18 cm Darwin Jones Other [employer] Other 09-21-2023 09:00-0500 Body mass index (BMI) [Ratio] 38.37 kg/m2 Darwin Jones Other [employer] Other 09-21-2023 09:00-0500 Body temperature 98 [degF] Darwin Easterwood Other [employer] Other 09-21-2023 09:00-0500 Body weight 111.13 kg Darwin Easterwood Other [employer] Other 09-21-2023 09:00-0500 Diastolic blood pressure 84 mm[Hg] Darwin Easterwood Other [employer] Other 09-21-2023 09:00-0500 Respiratory rate 20 /min Darwin Easterwood Other [employer] Other 09-21-2023 09:00-0500 SaO2% (BldA) [Mass fraction] 98 % Darwin Easterwood Other [employer] Other 09-21-2023 09:00-0500 Systolic blood pressure 126 mm[Hg] Darwin Easterwood Other [employer] Other 08-25-2023 09:30-0500 Body height 170.18 cm Darwin Easterwood Other [facility] 08-25-2023 09:30-0500 Body mass index (BMI) [Ratio] 39.46 kg/m2 Darwin Easterwood Other [employer] Other 08-25-2023 09:30-0500 Body temperature 97.6 [degF] Darwin Easterwood Other [employer] Other 08-25-2023 09:30-0500 Body weight 114.31 kg Darwin Easterwood Other [employer] Other 08-25-2023 09:30-0500 Body weight 114.3 kg [employer] Darwin Easterwood Work Phone: [facility] 08-25-2023 09:30-0500 Diastolic blood pressure 80 mm[Hg] Darwin Easterwood Other [facility] 08-25-2023 09:30-0500 Respiratory rate 20 /min Darwin Easterwood Other [employer] Other 08-25-2023 09:30-0500 SaO2% (BldA) [Mass fraction] 98 % Darwin Easterwood Other [employer] Other 08-25-2023 09:30-0500 Systolic blood pressure 120 mm[Hg] Darwin Easterwood Other [facility] 07-23-2023 09:30-0500 Body height 170.18 cm [employer] Darwin Easterwood Work Phone: [facility] 07-23-2023 09:30-0500 Body weight 116.57 kg [employer] Darwin Easterwood Work Phone: [facility] 07-23-2023 09:30-0500 Diastolic blood pressure 80 mm[Hg] [employer] Darwin Easterwood Work Phone: [facility] 07-23-2023 09:30-0500 Systolic blood pressure 118 mm[Hg] [employer] Darwin Easterwood Work Phone: [facility] 06-23-2023 09:30-0500 Body height 170.18 cm Darwin Easterwood Other [employer] Other 06-23-2023 09:30-0500 Body mass index (BMI) [Ratio] 40.4 kg/m2 Darwin Easterwood Other [employer] Other 06-23-2023 09:30-0500 Body temperature 97.4 [degF] Darwin Easterwood Other [employer] Other 06-23-2023 09:30-0500 Body weight 117.03 kg Darwin Easterwood Other [employer] Other 06-23-2023 09:30-0500 Diastolic blood pressure 78 mm[Hg] Darwin Easterwood Other [employer] Other 06-23-2023 09:30-0500 Respiratory rate 20 /min Darwin Easterwood Other [employer] Other 06-23-2023 09:30-0500 SaO2% (BldA) [Mass fraction] 98 % Darwin Easterwood Other [employer] Other 06-23-2023 09:30-0500 Systolic blood pressure 120 mm[Hg] Darwin Easterwood Other [employer] Other 06-08-2023 14:00-0400 Body temperature 97.2 [degF] Francy Gan PA-C Work Phone: [facility] 05-26-2023 10:30-0400 Body height 170.18 cm Darwin Easterwood Other [employer] Other 05-26-2023 10:30-0400 Body mass index (BMI) [Ratio] 41.5 kg/m2 Darwin Easterwood Other [employer] Other 05-26-2023 10:30-0400 Body temperature 98.4 [degF] Darwin Easterwood Other [employer] Other 05-26-2023 10:30-0400 Body weight 120.2 kg Darwin Easterwood Other [employer] Other 05-26-2023 10:30-0400 Diastolic blood pressure 70 mm[Hg] Darwin Easterwood Other [employer] Other 05-26-2023 10:30-0400 Respiratory rate 20 /min Darwin Easterwood Other [employer] Other 05-26-2023 10:30-0400 SaO2% (BldA) [Mass fraction] 97 % Darwin Easterwood Other [employer] Other 05-26-2023 10:30-0400 Systolic blood pressure 112 mm[Hg] Darwin Easterwood Other [employer] Other 04-28-2023 09:15-0400 Body height 170.18 cm Darwin Easterwood Other [employer] Other 04-28-2023 09:15-0400 Body mass index (BMI) [Ratio] 41.34 kg/m2 Darwin Easterwood Other [employer] Other 04-28-2023 09:15-0400 Body temperature 97.2 [degF] Darwin Easterwood Other [employer] Other 04-28-2023 09:15-0400 Body weight 119.75 kg Darwin Easterwood Other [employer] Other 04-28-2023 09:15-0400 Diastolic blood pressure 82 mm[Hg] Darwin Easterwood Other [employer] Other 04-28-2023 09:15-0400 Respiratory rate 20 /min Darwin Easterwood Other [facility] Other 04-28-2023 09:15-0400 SaO2% (BldA) [Mass fraction] 97 % Darwin Easterwood Other [employer] Other 04-28-2023 09:15-0400 Systolic blood pressure 120 mm[Hg] Darwin Easterwood Other [facility] Other 04-16-2023 11:00-0400 Body height 170.18 cm Darwin Easterwood Other [facility] Other 04-16-2023 11:00-0400 Body mass index (BMI) [Ratio] 41.03 kg/m2 Darwin Easterwood Other [employer] Other 04-16-2023 11:00-0400 Body temperature 97.8 [degF] Darwin Easterwood Other [employer] Other 04-16-2023 11:00-0400 Body weight 118.84 kg Darwin Easterwood Other [employer] Other 04-16-2023 11:00-0400 Diastolic blood pressure 80 mm[Hg] Darwin Easterwood Other [employer] Other 04-16-2023 11:00-0400 Respiratory rate 20 /min Darwin Easterwood Other [employer] Other 04-16-2023 11:00-0400 SaO2% (BldA) [Mass fraction] 98 % Dariwn Easterwood Other [facility] Other 04-16-2023 11:00-0400 Systolic blood pressure 120 mm[Hg] Darwin Jones Other [facility] Other 03-22-2023 22:51-0400 Diastolic blood pressure 74 mm[Hg] Kaylinn Dokken [facility] 03-22-2023 22:51-0400 Heart rate 80 /min Kaylinn Dokken [facility] 03-22-2023 22:51-0400 Mean blood pressure 92 mm[Hg] Kaylinn Dokken [facility] 03-22-2023 22:51-0400 Respiratory rate 16 /min Kaylinn Dokken [facility] 03-22-2023 22:51-0400 SaO2% (BldA) [Mass fraction] 98 % Kaylinn Dokken [facility] 03-22-2023 22:51-0400 Systolic blood pressure 128 mm[Hg] Kaylinn Dokken [facility] 03-22-2023 21:24-0400 Heart rate 76 /min Kaylinn Dokken [facility] 03-22-2023 21:24-0400 Respiratory rate 16 /min Kaylinn Dokken [facility] 03-22-2023 21:24-0400 SaO2% (BldA) [Mass fraction] 97 % Kaylinn Dokken [facility] 03-22-2023 19:54-0400 Body temperature 98.06 [degF] Kaylinn Dokken [facility] 03-22-2023 19:54-0400 Diastolic blood pressure 89 mm[Hg] Annan Dokken [facility] 03-22-2023 19:54-0400 Heart rate 81 /min Annan kken [facility] 03-22-2023 19:54-0400 Respiratory rate 18 /min Gabriel Curtis [facility] 03-22-2023 19:54-0400 SaO2% (BldA) [Mass fraction] 99 % Gabriel Cutris [facility] 03-22-2023 19:54-0400 Systolic blood pressure 138 mm[Hg] Gabriel Ramosen [facility] 03-22-2023 15:18-0400 Body height 170.18 cm [employer] Darwin Easterwood Work Phone: [facility] 03-22-2023 15:18-0400 Body temperature 98.2 [degF] [employer] Darwin Easterwood Work Phone: [facility] 03-22-2023 15:18-0400 Body weight 120.5 kg [employer] Darwin Easterwood Work Phone: [facility] 03-22-2023 15:18-0400 Diastolic blood pressure 74 mm[Hg] [employer] Darwin Easterwood Work Phone: [facility] 03-22-2023 15:18-0400 Heart rate 92 /min [employer] Darwin Easterwood Work Phone: [facility] 03-22-2023 15:18-0400 Respiratory rate 20 /min [employer] Darwin Easterwood Work Phone: [facility] 03-22-2023 15:18-0400 SaO2% (BldA) [Mass fraction] 97 % [employer] OFFICERAlayna Orosco [employer] Work Phone: [facility] 03-22-2023 15:18-0400 Systolic blood pressure 175 mm[Hg] SHIRLEY Orosco [facility] Work Phone: [facility] 10-05-2022 09:00-0500 Body height 170.18 cm Ofelia Missler Other [facility] Other 10-05-2022 09:00-0500 Body mass index (BMI) [Ratio] 37.21 kg/m2 Ofelia Missler Other [facility] Other 10-05-2022 09:00-0500 Body weight 107.78 kg Ofelia Missler Other [facility] Other 10-05-2022 09:00-0500 Diastolic blood pressure 45 mm[Hg] Ofelia Missler Other [employer] Other 10-05-2022 09:00-0500 Respiratory rate 18 /min Ofelia Missler Other [facility] Other 10-05-2022 09:00-0500 SaO2% (BldA) [Mass fraction] 97 % Ofelia Missler Other [facility] Other 10-05-2022 09:00-0500 Systolic blood pressure 100 mm[Hg] Ofelia Missler Other [facility] Other 09-02-2022 11:30-0500 Body height 170.18 cm Ofelia Missler Other [facility] Other 09-02-2022 11:30-0500 Body mass index (BMI) [Ratio] 38.04 kg/m2 Ofelia Missler Other [facility] Other 09-02-2022 11:30-0500 Body weight 110.18 kg Ofelia Missler Other [facility] Other 09-02-2022 11:30-0500 Diastolic blood pressure 79 mm[Hg] Ofelia Missler Other [employer] Other 09-02-2022 11:30-0500 Respiratory rate 18 /min Ofelia Missler Other [facility] Other 09-02-2022 11:30-0500 SaO2% (BldA) [Mass fraction] 96 % Ofelia Missler Other [facility] Other 09-02-2022 11:30-0500 Systolic blood pressure 119 mm[Hg] Ofelia Missler Other [facility] Other 08-25-2022 14:00-0500 Body height 170.18 cm Lilly Fitt Other [facility] Other 08-25-2022 14:00-0500 Body mass index (BMI) [Ratio] 38.01 kg/m2 Lilly Fitt Other [facility] Other 08-25-2022 14:00-0500 Body weight 110.09 kg Lilly Fitt Other [facility] Other 07-31-2022 09:45-0500 Body height 170.18 cm Ofelia Missler Other [facility] Other 07-31-2022 09:45-0500 Body mass index (BMI) [Ratio] 38.2 kg/m2 Ofelia Missler Other [facility] Other 07-31-2022 09:45-0500 Body weight 110.63 kg Ofelia Missler Other [facility] Other 07-31-2022 09:45-0500 Diastolic blood pressure 78 mm[Hg] Ofelia Missler Other [facility] Other 07-31-2022 09:45-0500 Respiratory rate 18 /min Ofelia Missler Other [facility] Other 07-31-2022 09:45-0500 SaO2% (BldA) [Mass fraction] 96 % Ofelia Missler Other [facility] Other 07-31-2022 09:45-0500 Systolic blood pressure 135 mm[Hg] Ofelia Missler Other [facility] Other 07-14-2022 08:49-0500 Body height 170.5 cm Ruby Whittington MD Work Phone: [facility] 07-14-2022 08:49-0500 Body weight 111.58 kg Ruby Whittington MD Work Phone: [facility] 07-14-2022 08:49-0500 Diastolic blood pressure 73 mm[Hg] Ruby Whittington MD Work Phone: [facility] 07-14-2022 08:49-0500 Heart rate 92 /min Ruby Whittington MD Work Phone: [facility] 07-14-2022 08:49-0500 Systolic blood pressure 140 mm[Hg] Ruby Whittington MD Work Phone: [facility] 06-17-2022 15:45-0400 Body height 170.18 cm Ofelia Missler Other [employer] Other 06-17-2022 15:45-0400 Body mass index (BMI) [Ratio] 38.99 kg/m2 Ofelia Missler Other [facility] Other 06-17-2022 15:45-0400 Body weight 112.95 kg Ofelia Missler Other [facility] Other 06-17-2022 15:45-0400 Diastolic blood pressure 90 mm[Hg] Ofelia Missler Other [facility] Other 06-17-2022 15:45-0400 Respiratory rate 18 /min Ofelia Missler Other [facility] Other 06-17-2022 15:45-0400 SaO2% (BldA) [Mass fraction] 96 % Ofelia Missler Other [facility] Other 06-17-2022 15:45-0400 Systolic blood pressure 140 mm[Hg] Ofelia Missler Other [facility] Other 06-04-2022 13:00-0400 Body height 170.18 cm Sima Ross Other [facility] Other 06-04-2022 13:00-0400 Body mass index (BMI) [Ratio] 38.37 kg/m2 Sima Ross Other [facility] Other 06-04-2022 13:00-0400 Body temperature 98.6 [degF] Sima Ross Other [facility] Other 06-04-2022 13:00-0400 Body weight 111.13 kg Sima Vandana Other [facility] Other 06-04-2022 13:00-0400 Diastolic blood pressure 83 mm[Hg] Sima Vandana Other [employer] Other 06-04-2022 13:00-0400 Respiratory rate 18 /min Sima Ross Other [facility] Other 06-04-2022 13:00-0400 SaO2% (BldA) [Mass fraction] 99 % Sima Ross Other [facility] Other 06-04-2022 13:00-0400 Systolic blood pressure 124 mm[Hg] Sima Vandana Other [facility] Other 05-27-2022 12:15-0400 Body height 170.18 cm Lilly Fitsonia Other [facility] Other 05-18-2022 09:30-0400 Body height 170.18 cm Ofelia cassidy Other [facility] Other 05-18-2022 09:30-0400 Body mass index (BMI) [Ratio] 39.37 kg/m2 Ofelia Missler Other [facility] Other 05-18-2022 09:30-0400 Body temperature 98.1 [degF] Ofelia Missler Other [facility] Other 05-18-2022 09:30-0400 Body weight 114.04 kg Foelia Missler Other [facility] Other 05-18-2022 09:30-0400 Diastolic blood pressure 80 mm[Hg] Ofelia Missler Other [facility] Other 05-18-2022 09:30-0400 Respiratory rate 18 /min Ofelia Missler Other [facility] Other 05-18-2022 09:30-0400 SaO2% (BldA) [Mass fraction] 99 % Ofelia Missler Other [facility] Other 05-18-2022 09:30-0400 Systolic blood pressure 115 mm[Hg] Ofelia Missler Other [facility] Other 04-17-2022 09:30-0400 Body height 170.18 cm [employer] Other [facility] Other 04-17-2022 09:30-0400 Body mass index (BMI) [Ratio] 39.15 kg/m2 [employer] Other [facility] Other 04-17-2022 09:30-0400 Body temperature 96.9 [degF] [employer] Other [facility] Other 04-17-2022 09:30-0400 Body weight 113.4 kg Darwin Go[employer] Other [employer] Other 04-17-2022 09:30-0400 Diastolic blood pressure 82 mm[Hg] Darwin Go[employer] Other [employer] Other 04-17-2022 09:30-0400 Respiratory rate 20 /min [facility] Other [facility] Other 04-17-2022 09:30-0400 SaO2% (BldA) [Mass fraction] 99 % Darwin Easterwood Other [facility] Other 04-17-2022 09:30-0400 Systolic blood pressure 124 mm[Hg] Darwin Easterwood Other [facility] Other 02-18-2022 21:41-0400 Diastolic blood pressure 88 mm[Hg] Fazal Antoni [facility] 02-18-2022 21:41-0400 Heart rate 84 /min Fazal Antoni [facility] 02-18-2022 21:41-0400 Mean blood pressure 101 mm[Hg] Fazal Antoni [facility] 02-18-2022 21:41-0400 Respiratory rate 17 /min Fazal Antoni [facility] 02-18-2022 21:41-0400 SaO2% (BldA) [Mass fraction] 98 % Darwin Adim8erwood Other [employer] Other 02-18-2022 21:41-0400 Systolic blood pressure 126 mm[Hg] Fazal Antoni [facility] 02-18-2022 20:42-0400 gluc 106 mg/dL Fazal Antoni [facility] 02-18-2022 20:42-0400 gluc Fazal Antoni [facility] 02-18-2022 20:33-0400 Body temperature 98.06 [degF] Fazal Antoni [facility] 02-18-2022 20:33-0400 Diastolic blood pressure 99 mm[Hg] Fazal Antoni [facility] 02-18-2022 20:33-0400 Heart rate 99 /min Fazal Antoni [facility] 02-18-2022 20:33-0400 Respiratory rate 18 /min Fazal Antoni [facility] 02-18-2022 20:33-0400 Systolic blood pressure 153 mm[Hg] Fazal Antoni [facility] 02-18-2022 10:00-0400 Body height 170.18 cm Darwin EasterCoskata Other [employer] Other 02-18-2022 10:00-0400 Body mass index (BMI) [Ratio] 38.52 kg/m2 Darwin Adim[employer]erCoskata Other [employer] Other 02-18-2022 10:00-0400 Body temperature 97 [degF] Darwin Easterwood Other [employer] Other 02-18-2022 10:00-0400 Body weight 111.59 kg Darwin Easterwood Other [employer] Other 02-18-2022 10:00-0400 Diastolic blood pressure 82 mm[Hg] Darwin Easterwood Other [employer] Other 02-18-2022 10:00-0400 Respiratory rate 20 /min Darwin Easterwood Other [employer] Other 02-18-2022 10:00-0400 Systolic blood pressure 118 mm[Hg] Darwin Easterwood Other [employer] Other 02-11-2022 12:00-0400 Body height 170.18 cm Darwincary Jonesermacy Other [employer] Other 02-11-2022 12:00-0400 Body mass index (BMI) [Ratio] 37.9 kg/m2 Darwin Easterwood Other Payoff Other 02-11-2022 12:00-0400 Body temperature 97.2 [degF] Darwincary Jonesermacy Other Payoff Other 02-11-2022 12:00-0400 Body weight 109.77 kg Darwin Robertermacy Other Payoff Other 02-11-2022 12:00-0400 Diastolic blood pressure 88 mm[Hg] Darwin Easterwood Other Payoff Other 02-11-2022 12:00-0400 Respiratory rate 20 /min Darwin Roberterwood Other Payoff Other 02-11-2022 12:00-0400 SaO2% (BldA) [Mass fraction] 98 % Darwin Easterwood Other Payoff Other 02-11-2022 12:00-0400 Systolic blood pressure 126 mm[Hg] Darwin Easterwood Other Payoff Other 09-03-2021 10:02-0500 Diastolic blood pressure 86 mm[Hg] Unknown Unknown [employer] 600 DO Work Phone: 09-03-2021 10:02-0500 Systolic blood pressure 110 mm[Hg] Unknown Unknown [facility] 600 DO Work Phone: 09-03-2021 09:55-0500 Body height 170.18 cm Unknown Unknown [facility] 600 DO Work Phone: 09-03-2021 09:55-0500 Body mass index (BMI) [Ratio] 32.36 kg/m2 Unknown Unknown [facility] 600 DO Work Phone: 09-03-2021 09:55-0500 Body surface area Derived from formula 2.05 m2 Unknown Unknown [facility] 600 DO Work Phone: 09-03-2021 09:55-0500 Body weight 93.71 kg Unknown Unknown [facility] 600 DO Work Phone: 09-03-2021 09:55-0500 Diastolic blood pressure 84 mm[Hg] Unknown Unknown [facility] 600 DO Work Phone: 09-03-2021 09:55-0500 Heart rate 72 /min Unknown Unknown [facility] 600 DO Work Phone: 09-03-2021 09:55-0500 Systolic blood pressure 122 mm[Hg] Unknown Unknown [facility] 600 DO Work Phone: Encounters Encounter Date Encounter Type Care Provider Facility Start: 09-11-2024 End: 09-11-2024 Clinisync Result Encounter Mya MCMILLAN Work Phone: [facility] External [facility] Unsolicited Start: 09-11-2024 End: 09-11-2024 Clinisync Result Encounter Mya MCMILLAN Work Phone: [facility] External Department Unsolicited Start: 09-07-2024 End: 09-07-2024 flow sheet Mya MCMILLAN Work Phone: [facility] Comment on above: Third trimester preg gwen; 31 weeks gestation of ; size inconsistent with dates Start: 09-07-2024 End: 09-07-2024 ambulatory MYA FINCH Not Available Start: 09-07-2024 End: 09-07-2024 Bamboo flowsheet Mya MCMILLAN Work Phone: [facility] Start: 09-07-2024 End: 09-07-2024 Bamboo flowsheet Mya MCMILLAN Work Phone: [facility] Start: 09-06-2024 End: 09-06-2024 Emergency department patient visit Flash Franco [facility] Start: 09-05-2024 ambulatory [facility] Facility [facility] Start: 09-05-2024 End: 09-05-2024 ambulatory [facility] Facility:[facility] Start: 09-05-2024 Emergency department patient visit DO Gabriel Curtis Facility:[facility] Start: 09-05-2024 End: 09-05-2024 Observation [facility] Start: 08-25-2024 End: 08-25-2024 Clinisync Result Encounter Brain Seamus DO Work Phone: [facility] External Department Unsolicited Start: 08-25-2024 End: 08-25-2024 Clinisync Result Encounter Brain Seamus DO Work Phone: [facility] External Department Unsolicited Start: 08-25-2024 End: 08-25-2024 ambulatory Darwin Jones [employer] Work Phone: [facility] Work Phone: Start: 08-25-2024 End: 08-25-2024 Patient encounter procedure Darwin Jones [employer] Work Phone: [facility] Work Phone: Start: 08-23-2024 End: [...] Start: 08-02-2024 End: 08-02-2024 ambulatory DARCY SALAZARHID [facility] Start: 07-31-2024 End: 07-31-2024 Patient encounter procedure Darwin Jones [employer] Work Phone: [facility] [place] Work Phone: Start: 07-31-2024 End: 07-31-2024 Orders Only Hayden Reilly MD Work Phone: [facility] - Labor Comment on above: History of pericardi tis (Primary Dx); Mild concentric left ventricular hypertrophy (LVH); 25 weeks gestation of Start: 07-27-2024 End: 07-27-2024 ambulatory NO PCP NO PCP [facility] Start: 07-11-2024 End: 07-11-2024 flow sheet Brain Seamus DO Work Phone: [facility] Comment on above: 22 weeks gestation o f ; Second trimester ; Nausea and vomiting during ; Diabetes mellitus screening Start: 06-28-2024 End: 06-28-2024 Patient encounter procedure Darwin Jones [employer] Work Phone: [facility] [place] Work Phone: Start: 06-28-2024 End: 06-28-2024 ambulatory Darwin Jones [employer] Work Phone: [facility] Work Phone: Start: 2024 End: 2024 Office consultation new/estab patient 60 min Hayden Reilly MD Work Phone: [facility] [place] Comment on above: 20 weeks gestation o [...] Start: 2024 End: 2024 ambulatory BRAIN R [facility] Start: 06-22-2024 End: 06-22-2024 Patient encounter procedure Darwin Jones APRN Work Phone: [facility] [place] Work Phone: Start: 06-22-2024 End: 06-22-2024 ambulatory Darwin Jones [employer] Work Phone: [facility] Work Phone: Start: 06-21-2024 End: 06-21-2024 Chart abstracting Hayden Reilly MD Work Phone: [facility] Start: 06-12-2024 End: 06-12-2024 Bamboo flowsheet Brain Seamus DO Work Phone: [facility] Start: 06-12-2024 End: 06-12-2024 Bamboo flowsheet Brain Seamus DO Work Phone: [facility] Start: 06-12-2024 End: 06-12-2024 flow sheet Rbain Seamus DO Work Phone: [facility] Comment on above: Second trimester pre gnancy; 18 weeks gestation of ; Screening, , for anatomic survey Start: 06-12-2024 End: 06-12-2024 ambulatory BRAIN SEAMUS Not Available Start: 05-24-2024 End: 05-24-2024 Patient encounter procedure SHIRLEY Jones Work Phone: [facility] [place] Work Phone: Start: 05-24-2024 End: 05-24-2024 ambulatory SHIRLEY Jones Work Phone: [facility] Work Phone: Start: 05-11-2024 End: 05-11-2024 ambulatory SHIRLEY Jones Work Phone: [facility] Work Phone: Start: 05-11-2024 End: 05-11-2024 Encounter for general adult medical examination without abnormal findings SHIRLEY Jones Work Phone: [facility] Start: 05-11-2024 End: 05-11-2024 Patient encounter procedure SHIRLEY Jones Work Phone: [facility] [place] Work Phone: Start: 05-10-2024 End: 05-10-2024 Bamboo [...] Available Start: 04-06-2024 End: 04-06-2024 Departed Referred [employer]Alayna Jones Work Phone: [facility] Start: 04-06-2024 End: 04-06-2024 ambulatory [employer]Alayna Jones Work Phone: [facility] Work Phone: Start: 03-21-2024 End: 03-21-2024 ambulatory BRAIN SEAMUS Not Available Start: 03-18-2024 End: 03-18-2024 Emergency department patient visit [place] [facility] Start: 02-24-2024 End: 02-24-2024 Patient encounter procedure [employer]ERAlayna Joneserwood Work Phone: [facility] [place] Work Phone: Start: 02-24-2024 End: 02-24-2024 ambulatory [employer] Dawrin Anaya Easterwood Work Phone: [facility] Work Phone: Start: 01-25-2024 End: 01-25-2024 ambulatory [employer] Darwin Anaya Easterwood Work Phone: [facility] Work Phone: Start: 01-25-2024 End: 01-25-2024 Patient encounter procedure [employer] Darwin Joneserwood Work Phone: [facility] Work Phone: Start: 01-24-2024 End: 01-24-2024 Patient encounter procedure [employer] Darwin Joneserwood Work Phone: [facility] [place] Work Phone: Start: 01-24-2024 End: 01-24-2024 ambulatory [employer] Darwin Anaya Easterwood Work Phone: [facility] Work Phone: Start: 12-27-2023 End: 12-27-2023 Patient encounter procedure [employer] Darwin Joneserwood Work Phone: [facility] [place] Work Phone: Start: 12-27-2023 End: 12-27-2023 ambulatory [employer] Darwin Jaclyn Easterwood Work Phone: [facility] Work Phone: Start: 12-24-2023 End: 12-24-2023 ambulatory [employer] OFF[employer]ERAlayna Jones Work Phone: [facility] Work Phone: Start: 12-24-2023 End: 12-24-2023 Patient encounter procedure [employer]ICERAlayna Jones Work Phone: [facility] Work Phone: Start: 11-30-2023 End: 11-30-2023 Patient encounter procedure [employer]ERAlayna Jones Work Phone: [facility] [place] Work Phone: Start: 11-30-2023 End: 11-30-2023 ambulatory [employer] OFF[employer]ERAlayna Jonesermacy Work Phone: [facility] Work Phone: Start: 11-25-2023 End: 11-25-2023 ambulatory [employer] OFFICERAlayna Joneserpetaluma Work Phone: [facility] Work Phone: Start: 11-25-2023 End: 11-25-2023 Patient encounter procedure SHIRLEY Jones Work Phone: [facility] Work Phone: Start: 11-18-2023 End: 11-19-2023 ambulatory RUBY WHITTINGTON Facility:[facility] Start: 11-18-2023 End: 11-18-2023 Patient encounter procedure Ruby Whittington MD Work Phone: Endocrinology Comment on above: 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 Work Phone: Start: 10-20-2023 End: 10-20-2023 Patient encounter procedure [employer] Darwin Joneserwood Work Phone: [facility] Work Phone: Start: 10-01-2023 End: 10-01-2023 Patient encounter procedure [employer] Darwin Joneserwood Work Phone: [facility] Work Phone: Start: 10-01-2023 End: 10-01-2023 ambulatory [employer] Darwin Jonesermacy Work Phone: [facility] Work Phone: Start: 09-29-2023 End: 09-29-2023 ambulatory Tyrone Rock Facility:[facility] Start: 09-29-2023 End: 09-29-2023 Patient encounter procedure Tyrone Rock [facility] Start: 09-21-2023 End: 09-21-2023 ambulatory Darwin Roberterwood Other Payoff Other Start: 09-21-2023 Office outpatient vi sit 15 minutes Darwin Janewood [facility] Start: 08-30-2023 Patient encounter procedure [employer] Darwin Joneserwood Work Phone: [facility]- Start: 08-25-2023 End: 08-25-2023 ambulatory Darwin Roberterwood Other Payoff Other Start: 08-25-2023 Follow-up encounter Darwin Roberttodd [facility] Start: 08-25-2023 End: 08-25-2023 Patient encounter procedure [employer] Darwin Yasir Work Phone: [facility] Work Phone: Start: 07-23-2023 End: 07-23-2023 Patient encounter procedure [employer] Darwin Jones Work Phone: [facility] Work Phone: Start: 07-16-2023 Telephone encounter Ruby sneed MD Work Phone: Endocrinology Comment on above: Appointment Start: 06-23-2023 End: 06-23-2023 ambulatory Darwin Janemacy Other Payoff Other Start: 06-23-2023 Office outpatient vi sit 15 minutes Darwin Jones [facility] Start: 06-08-2023 End: 06-08-2023 ambulatory FRANCY GAN Facility:[facility] Start: 06-08-2023 End: 06-08-2023 Patient encounter procedure Francy Gan PA-C Work Phone: Otolaryngology Comment on above: Dysphagia, unspecifi ed type (Primary Dx); LPRD (laryngopharyngeal reflux disease) Start: 05-26-2023 End: 05-26-2023 ambulatory Darwin Yasir Other Payoff Other Start: 05-26-2023 Office outpatient vi sit 25 minutes Darwin Roberttodd [facility] Start: 05-06-2023 End: 05-06-2023 ambulatory [employer] Darwin Anaya Yasir Work Phone: [facility] Work Phone: Start: 05-06-2023 End: 05-06-2023 Patient encounter procedure [employer] Darwin Jonestodd Work Phone: [facility] [place] Work Phone: Start: 04-28-2023 End: 04-28-2023 ambulatory Darwin Jones Other Payoff Other Start: 04-28-2023 Office outpatient vi sit 40 minutes [facility] Start: 04-16-2023 End: 04-16-2023 ambulatory Darwin Larapetaluma Other Payoff Other Start: 04-16-2023 Encounter for genera l adult medical examination without abnormal [facility] Start: 04-16-2023 Periodic preventive med est patient 18-39 yrs [facility]ary [facility] Start: 04-08-2023 End: 04-08-2023 ambulatory [employer] Darwin Jones Work Phone: [facility] Work Phone: Start: 04-08-2023 End: 04-08-2023 Departed Referred [employer] Darwin Jones Work Phone: [facility]-Employee Benefit Screening Start: 03-22-2023 End: 03-22-2023 Emergency department patient visit Gabriel Curtis [facility] Start: 03-22-2023 End: 03-22-2023 Emergency department patient visit [employer] Darwin Jones Work Phone: [facility] Work Phone: Start: 02-28-2023 End: 02-28-2023 Departed Referred [employer] Darwin Jones Work Phone: [facility]-Employee Benefit Screening Start: 02-28-2023 End: 02-28-2023 ambulatory [employer] Darwin Jones Work Phone: [facility] Work Phone: Start: 02-28-2023 End: 02-28-2023 Patient encounter procedure [employer] Darwin Jones Work Phone: [facility] [address] Work Phone: Start: 12-10-2022 End: 12-10-2022 ambulatory [employer] Darwin Jones Work Phone: [facility] Work Phone: Start: 12-10-2022 End: 12-10-2022 Patient encounter procedure [employer] Darwin Jones Work Phone: [facility] [place] Work Phone: Start: 12-09-2022 End: 12-09-[address] NONE LISTED REQUEST Facility: Start: 12-08-2022 End: 12-08-2022 ambulatory Ofelia Mir Other Payoff Other Start: 12-08-2022 Encounter by ruben Gilbert cassidy [facility] Start: 10-22-2022 End: 10-22-2022 ambulatory Lilly Ti Other Payoff Other Start: 10-22-2022 Telephone encounter Lilly Luke [facility] Start: 10-16-2022 End: 10-16-2022 ambulatory [employer] Darwin Jones Work Phone: [facility] Work Phone: Start: 10-16-2022 End: 10-16-2022 Patient encounter procedure [employer] Darwin Jones Work Phone: [facility] [place] Work Phone: Start: 10-15-2022 End: 10-15-2022 ambulatory Ofelia Mir Other Payoff Other Start: 10-15-2022 Telephone encounter Ofelia [facility] Start: 10-05-2022 Registered Recurring SHIRLEY Jones Work Phone: [facility]-Weight Management Work Phone: Start: 10-05-2022 ([facility] Weight Management f/u [facility] Start: 10-05-2022 End: 10-05-2022 ambulatory Ofelia Hester Other Payoff Other Start: 09-28-2022 ambulatory Ruby Whittington MD Work Phone: Endocrinology Comment on above: Synthroid Start: 09-02-2022 ([facility] Weight Management f/u [facility] Start: 09-02-2022 End: 09-02-2022 ambulatory Ofeliaher Hester Other Payoff Other Start: 08-25-2022 ([facility] WMNI) PHUONG joy Provider Lilly Neymarsonia [facility] Start: 08-25-2022 End: 08-25-2022 ambulatory Lilly Ti Other Payoff Other Start: 07-31-2022 ([facility]) Weight Management f/u [facility] Start: 07-31-2022 End: 07-31-2022 ambulatory Ofelia ler Other Payoff Other Start: 07-20-2022 End: 07-20-2022 ambulatory Lilly Luke Other Payoff Other Start: 07-20-2022 Telephone encounter Lilly Luke [facility] Start: 07-14-2022 End: 07-14-2022 Patient encounter procedure Ruby Whittington MD Work Phone: Endocrinology Comment on above: 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); Class 2 obesity Start: 07-08-2022 End: 07-08-2022 ambulatory Ofelia Hester Other Payoff Other Start: 07-08-2022 Telephone encounter Ofelia [facility] Start: 06-17-2022 ([facility]/U) Weight Management f/u [facility] Start: 06-17-2022 End: 06-17-2022 ambulatory Ofelia Hester Other Payoff Other Start: 06-04-2022 End: 06-04-2022 ambulatory Sima Ross Other Payoff Other Start: 06-04-2022 Office outpatient vi sit 15 minutes Sima Ross [facility] Start: 05-27-2022 End: 05-27-2022 ambulatory Lilly Luke Other Payoff Other Start: 05-27-2022 IBT FOR OBESITY GROU P 2-10 30M Lilly Luke [facility] Start: 05-25-2022 End: 05-25-2022 ambulatory Darwin Jones Other Payoff Other Start: 05-25-2022 Telephone encounter Geoffrey murphy MD Work Phone: Endocrinology Comment on above: Appointment (LVM for patient that appt on 05/[address] George has been rescheduled to 07/[address] [facility] [address] Dr. Robertson. sending mail reminder as well. ) Start: 05-19-2022 End: 05-19-2022 ambulatory Ofelia Hester Other Payoff Other Start: 05-19-2022 Telephone encounter Ofelia [facility] Start: 05-18-2022 End: 05-18-2022 ambulatory Ofelia Hester Other Payoff Other Start: 05-18-2022 Nutrition therapy Ofelia Hester [facility] Start: 04-21-2022 End: 04-21-2022 ambulatory Darwin Easterwood Other Payoff Other Start: 04-21-2022 Telephone encounter Darwin Easterwood [facility] Start: 04-17-2022 End: 04-17-2022 ambulatory Darwin Easterwood Other Payoff Other Start: 04-17-2022 Office outpatient vi sit 25 minutes Drawin Easterwood [facility] Start: 04-15-2022 End: 04-15-2022 ambulatory Dariwn Easterwood Other Payoff Other Start: 04-15-2022 Telephone encounter Darwin Easterwood [facility] Start: 04-14-2022 End: 04-14-2022 Patient encounter procedure PHYSICIAN NO [facility] [place] Start: 04-10-2022 End: 04-10-2022 ambulatory Lilly Fitt Other Payoff Other Start: 04-10-2022 Telephone encounter Lilly Fitt [facility] Start: 04-06-2022 End: 04-06-2022 Patient encounter procedure PHYSICIAN NO [facility] [place] Start: 02-24-2022 End: 02-24-2022 ambulatory Darwin Easterwood Other Payoff Other Start: 02-24-2022 [facility] Start: 02-18-2022 End: 02-18-2022 Emergency department patient visit Fazal Corrales [facility] Start: 02-18-2022 End: 02-18-2022 [facility]ulatory [facility] Payoff Other Start: 02-18-2022 Office outpatient vi sit [facility] Start: 02-18-2022 [facility] Start: 02-13-2022 End: 02-13-2022 Patient encounter procedure PHYSICIAN [facility]Ul[facility]ound [facility] [place] Start: 02-11-2022 End: 02-11-2022 [facility] Active-Semi Other Start: 02-11-2022 Office outpatient ne w 45 minutes Darwin [facility] Start: 02-10-2022 End: 02-10-2022 Departed Referred PHYSICIAN [facility] C[facility]-Employee Benefit Screening Start: 09-04-2021 Chart Update Unknown Unknown [facility] 250 DO Work Phone: Start: 09-03-2021 Office outpatient ne w 45 minutes Unknown [facility] Work Phone: Procedures Date Procedure [...] ultrasoun d of gravid uterus Darwin Jones [employer] Work Phone: Start: 06-21-2024 H/O: section History [...] dip stick/tabl et rgnt non-auto w/o micrscp Brainjonathan Chiango DO Work Phone: Start: 02-13-2022 US scan of thyroid PHYS ICIAN NO FAMILY section Unknown Unk nown section Fazal Bush er NEGATED: Highlighted row has not occurred! Total colonoscopy Unknown Unknown Plan of Treatment Date Care Activity Detail Author Start: 04-20-2027 Screening for malignant neoplasm of cervix Pap Smear [facility] Start: 03-23-2026 DTaP,Tdap and Td Vaccines (7 - Td or Tdap) DTaP,Tdap and Td Vaccines (7 - Td or Tdap) [facility] Start: 03-23-2026 Urine microalbumin profile [facility] Start: 2025 Tobacco Screening Tobacco Screening [facility] Start: 09-19-2024 End: 09-19-2024 Patient encounter procedure 09/19/2024 2:00 PM EST Routine [facility] [address] [id number], DO [address] [place] [place] [address] [facility] Start: 09-07-2024 End: 09-07-2024 Patient encounter procedure [facility] Comment on above: Arrived Start: 09-07-2024 End: 09-07-2025 US for US OB follow up transabdominal approach Imaging Routine size inconsistent with dates Expected: 09/07/2024, Expires: 09/07/2025 [facility] Work Phone: Comment on above: Expected: 09/07/2024, Expires: Start: 08-31-2024 End: 07-31-2025 Echo complete W/O contrast Echo complete W/O contrast Echocardiography Routine History of pericarditis Mild concentric left ventricular hypertrophy (LVH) 25 weeks gestation of Expected: 08/31/2024 (Approximate), Expires: 07/31/2025 [facility] Work Phone: Comment on above: Expected: 08/31/2024 (Approximate), Expi res: 07/31/2025 Start: 08-25-2024 [facility] Start: 08-23-2024 End: 08-23-2024 Patient encounter procedure 08/23/2024 11:00 AM EST Routine [facility] [address] [address] DO [address] [place] [place] [address] Arrived [facility] Comment on above: Arrived Start: 08-02-2024 End: 08-02-2024 Telemedicine consultation with patient 08/02/2024 9:00 AM EST Telemedicine [facility] [address] [place] [address] Darcy Enriquez MD [address] [facility] [address] [place] [address] [facility] Start: 07-27-2024 End: 07-27-2024 Patient encounter procedure 07/27/2024 11:00 AM EST Appointment [facility] [address] [place], [place] [address] [facility] Start: 07-21-2024 End: 07-21-2024 Patient encounter procedure 07/21/2024 10:00 AM EST Appointment [facility] [address] [place] [address] [facility] Start: 07-11-2024 End: 07-11-2025 CBC [...] mellitus screening Expected: 07/11/2024 (Approximate), Expires: 07/11/2025 [facility] Healthcare Comment on above: Expected: 07/11/2024 (Approximate), Expi res: 07/11/2025 Start: 07-11-2024 End: 07-11-2024 Patient encounter procedure 07/11/2024 10:10 AM EST Routine [facility] OB [address] [place] [id number] [address] DO [address] [place] [address] [facility] Start: 06-28-2024 [facility] Start: 2024 End: 2025 Echo complete W/O contrast Echo complete W/O contrast Echocardiography Routine 20 weeks gestation of History of pericarditis Expected: 2024, Expires: 2025 [facility] Work Phone: Comment on above: Expected: 2024, Expires: Start: 2024 End: 2024 Patient encounter procedure [facility] Start: 06-12-2024 End: 10-13-2024 Alpha fetoprotein, maternal Alpha fetoprotein, maternal Lab Routine Second trimester 18 weeks gestation of Expected: 06/12/2024 (Approximate), Expires: 10/13/2024 [facility] Healthcare Comment on above: Expected: 06/12/2024 (Approximate), Expi res: 10/13/2024 Start: 06-12-2024 End: 06-12-2025 US for US OB ANATOMY SINGLE W US OB CERVICAL LENGTH Imaging Routine Screening, , for anatomic survey Expected: 06/12/2024 (Approximate), Expires: 06/12/2025 [facility] Healthcare Work Phone: Comment on above: Expected: 06/12/2024 (Approximate), Expi res: 06/12/2025 Start: 06-12-2024 End: 06-12-2024 Patient encounter procedure 06/12/2024 10:00 AM EDT Routine [facility] [address] [place] [phone] [address], DO [address] [place] [address] Arrived [facility] Comment on above: Arrived Start: 06-07-2024 End: 06-07-2024 Patient encounter procedure 06/07/2024 10:50 AM EDT Routine [facility] [address] [place] [id number] [address], DO [address] [place] [address] [facility] Start: 05-10-2024 End: 05-10-2024 Patient encounter procedure [facility] Comment on above: Arrived Start: 04-20-2024 End: 04-20-2024 Patient encounter procedure [facility] Comment on above: Arrived Start: 04-16-2024 COVID-19 Vaccine ( season) COVID-19 Vaccine ( season) [facility] Start: 04-16-2024 Influenza vaccination [facility] [...] 08-16-2023 Behavioral Health Screening Behavioral Health Screening [facility] Start: 05-06-2023 US scan of thyroid US thyroid [facility] Start: 04-16-2023 Covid-19 Vaccine ( season) Covid-19 Vaccine ( season) [facility] Start: 04-16-2023 Influenza vaccination Influenza Vaccine (#1) [facility] Start: 04-08-2023 [facility] Start: 08-16-2022 DEPRESSION ASSESSMENT DEPRESSION ASSESSMENT [facility] Start: 04-16-2022 Influenza vaccination INFLUENZA (#1) [facility] Start: 08-16-2021 DEPRESSION ASSESSMENT DEPRESSION ASSESSMENT [facility] Start: 01-10-2021 COVID-19 VACCINE (3 - Booster) COVID-19 VACCINE (3 - Booster) [facility] Start: 2017 PAP TESTING PAP TESTING [facility] Start: 2017 Screening for malignant neoplasm of cervix [facility] Start: 2015 DTaP,Tdap and Td Vaccines (1 - Tdap) DTaP,Tdap and Td Vaccines (1 - Tdap) [facility] Start: 2015 Urine microalbumin profile DTAP,TDAP,TD (1 - Tdap) [facility] Start: 2014 Adult BMI Screening Adult BMI Screening [facility] Start: 2014 ANNUAL PCP TEAM CHRONIC DISEASE VISIT ANNUAL PCP TEAM CHRONIC DISEASE VISIT [facility] Start: 2014 HEPATITIS C SCREENING HEPATITIS C SCREENING [facility] Start: 2014 Hepatitis C screening Hepatitis C Screening [facility] Start: 2014 HIV SCREENING HIV SCREENING [facility] Start: 2014 HIV screening HIV Screening [facility] Start: 2010 PEDS TO ADULT TRANSITION ANNUAL ASSESSMENT PEDS TO ADULT TRANSITION ANNUAL ASSESSMENT [facility] Start: 2008 Depression Screening Depression Screening [facility] Start: 2008 PEDS TO ADULT TRANSITION INITIAL DISCUSSION PEDS TO ADULT TRANSITION INITIAL DISCUSSION [facility] Start: 2008 Tobacco Screening Tobacco Screening [facility] Start: 2007 HPV VACCINE (1 - 2-dose series) HPV VACCINE (1 - 2-dose series) [facility] Start: 2005 HPV Vaccine (1 - 2-dose series) HPV Vaccine (1 - 2-dose series) [facility] Start: 1996 COVID-19 VACCINE (#1) COVID-19 VACCINE (#1) [facility] Start: 1996 HEPATITIS B (1 of 3 - 3-dose series) HEPATITIS B (1 of 3 - 3-dose series) [facility] Bacteria identified in Urine by Culture Urine culture Microbiology Routine Missed menses Ordered: 04/07/2024 [facility] Comment on above: Ordered: 04/07/2024 CBC W Auto Differential panel - Blood CBC and differential Lab Routine Missed menses Ordered: 04/07/2024 [facility] Comment on above: Ordered: 04/07/2024 CHLAMYDIA TRACHOMATI S (GENITO/STI) CHLAMYDIA TRACHOMATIS (GENITO/STI) Lab Routine First trimester Screen for STD (sexually transmitted disease) Vaginal discharge Ordered: 04/20/2024 [facility] Comment on above: Ordered: 04/20/2024 Cytology Cervical or vaginal smear or scraping study Pap Smear Pathology and Cytology Routine Well woman exam with routine gynecological exam Ordered: 04/20/2024 [facility] Work Phone: Comment on above: Ordered: 04/20/2024 Hemoglobin A1c/Hemoglobin.total in Blood Hemoglobin A1c Lab Routine Missed menses Ordered: 04/07/2024 [facility] Comment on above: Ordered: 04/07/2024 Hepatitis B virus surface Ag [Presence] in Serum or Plasma by Immunoassay Hepatitis B surface antigen Lab Routine Missed menses Ordered: 04/07/2024 [facility] Comment on above: Ordered: 04/07/2024 Hepatitis C virus Ab [Presence] in Serum or Plasma by Immunoassay Hepatitis C antibody Lab Routine Missed menses Ordered: 04/07/2024 [facility] Comment on above: Ordered: 04/07/2024 HIV-1/HIV-2 antigen/antibody combination immunoassay HIV-1 and HIV-2 antibodies Lab Routine Missed menses Ordered: 04/07/2024 [facility] Comment on above: Ordered: 04/07/2024 Neisseria gonorrhoea e DNA [Presence] in Unspecified specimen by LAUREN with probe detection Neisseria gonorrhea DNA probe, direct Lab Routine First trimester Screen for STD (sexually transmitted disease) Vaginal discharge Ordered: 04/20/2024 [facility] Comment on above: Ordered: 04/20/2024 Patient referral [facility] Work Phone: Progesterone [Mass/volume] in Serum or Plasma [facility] Progesterone [Mass/volume] in Serum or Plasma [facility] Progesterone [Mass/volume] in Serum or Plasma [facility] Progesterone [Mass/volume] in Serum or Plasma [facility] Progesterone [Mass/volume] in Serum or Plasma [facility] Reagin Ab [Presence] in Serum by RPR RPR Lab Routine Missed menses Ordered: 04/07/2024 [facility] Comment on above: Ordered: 04/07/2024 Rubella antibody, IgG Rubella an tibody, IgG Lab Routine Missed menses Ordered: 04/07/2024 [facility] Comment on above: Ordered: 04/07/2024 SURESWAB(R) ADVANCED VAGINITIS PLUS, TMA SURESWAB(R) ADVANCED VAGINITIS PLUS, TMA Pathology and Cytology Routine First trimester Screen for STD (sexually transmitted disease) Vaginal discharge Ordered: 04/20/2024 [facility] Comment on above: Ordered: 04/20/2024 Thyrotropin [Units/volume] in Serum or Plasma TSH Lab Routine Missed menses Ordered: 04/07/2024 [facility] Comment on above: Ordered: 04/07/2024 [facility]: 07-07-2024 XR MODIFIED BARIUM SWALLOW W SPEECH THERAPY XR MODIFIED BARIUM SWALLOW W SPEECH THERAPY Radiology Routine Dysphagia, unspecified type 1 Occurrences starting 06/08/2023 until 07/07/2024 [facility] Work Phone: Comment on above: 1 Occurrences starting 06/08/2023 until 07/07/2024 [facility] Work Phone: [facility] Immunizations Immunization Date Immunization Notes Care Provider Vaishali yo 05-21-2023 influenza virus vaccine, unspecified formulation [facility]one Rock [facility] 05-21-2023 influenza, injectabl e, 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, 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 free [employer] Darwin Jones Work Phone: [facility] 05-21-2023 influenza, injectabl e, 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, contains 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 Darwin Easterwood Other [facility]Semi Other 06-15-2022 influenza, injectabl e, 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, 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 free [employer] Darwin Easterwood Work Phone: [facility] 06-15-2022 influenza, injectabl e, 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, contains 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 Darwin Easterwood Other [facility] Work Phone: 06-15-2022 influenza virus vaccine, unspecified formulation Francy Gan PA-C Work Phone: [facility] 06-15-2021 influenza nasal, unspecified formulation Ruby Whittnigton MD Work Phone: [facility] Work Phone: 06-15-2021 influenza virus vaccine, unspecified formulation [facility] 06-15-2021 influenza, injectabl e, 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, 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 free [employer] Darwin Easterwood Work Phone: [facility] 06-15-2021 influenza, injectabl e, 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, contains 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 Darwin Easterwood Other [facility] Work Phone: 05-15-2021 influenza nasal, unspecified formulation Ruby Whittington MD Work Phone: [facility] Work Phone: 05-15-2021 influenza virus vaccine, unspecified formulation [facility] 05-15-2021 influenza, high dose seasonal, 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-free Unknown Unknown [facility] Work Phone: 11-15-2020 Pfizer-BioNTech COVID-19 Vacc 30 MCG/0.3ML Intramuscular Suspension Unknown Unknown [facility] 11-12-2020 COVID-19 vaccine, unknown product (NON-US) Ruby Whittington MD Work Phone: [facility] Work Phone: 10-24-2020 Pfizer-BioNTech COVID-19 Vacc 30 MCG/0.3ML Intramuscular Suspension Unknown Unknown [facility] 03-23-2016 tetanus toxoid, reduced diphtheria toxoid, and acellular pertussis vaccine, adsorbed Unknown Unknown [facility] Work Phone: 03-23-2016 varicella virus vaccine Unknown Unknown [facility] Work Phone: 03-01-2002 diphtheria, tetanus toxoids and acellular pertussis vaccine, unspecified formulation Unknown Unknown [facility] Work Phone: 03-01-2002 DTaP, unspecified formulation [facility] 03-01-2002 measles, mumps and rubella virus vaccine Unknown Unknown [facility] Work Phone: 03-01-2002 poliovirus vaccine, inactivated Unknown Unknown [facility] Work Phone: 03-01-2002 poliovirus vaccine, unspecified formulation [facility] Rock [facility] 04-20-2001 hepatitis B vaccine, pediatric or pediatric/adolescent dosage Unknown Unknown [facility] Work Phone: 01-03-1998 diphtheria, tetanus toxoids and acellular pertussis vaccine, unspecified formulation Unknown Unknown [facility] Work Phone: 01-03-1998 DTaP, unspecified formulation Tyrone Rock [facility] 09-18-1997 measles, mumps and rubella virus vaccine Unknown Unknown [facility] Work Phone: 09-18-1997 varicella virus vaccine Unknown Unknown [facility] Work Phone: 03-30-1997 hepatitis B vaccine, pediatric or pediatric/adolescent dosage Unknown Unknown [facility] Work Phone: 1996 diphtheria, tetanus toxoids and acellular pertussis vaccine, unspecified formulation Unknown Unknown [facility] Work Phone: 1996 DTaP, unspecified formulation Tyrone Pranav [facility] 1996 trivalent poliovirus vaccine, live, oral Unknown Unknown [facility] Work Phone: 1996 diphtheria, tetanus toxoids and acellular pertussis vaccine, unspecified formulation Unknown Unknown [facility] Work Phone: 1996 DTaP, unspecified formulation Tyrone Flyfit [facility] 1996 haemophilus influenz ae type b vaccine, conjugate unspecified formulation Unknown Unknown [facility] Work Phone: 1996 Hib, unspecified formulation Tyrone Polancopsey [facility] 1996 trivalent poliovirus vaccine, live, oral Unknown Unknown [facility] Work Phone: 1996 diphtheria, tetanus toxoids and acellular pertussis vaccine, unspecified formulation Unknown Unknown [facility] Work Phone: 1996 DTaP, unspecified formulation Tyrone Polancopsey [facility] 1996 diphtheria, tetanus toxoids and acellular pertussis vaccine, unspecified formulation Unknown Unknown [facility] Work Phone: 1996 DTaP, unspecified formulation Tyrone Polancopsey [facility] 1996 haemophilus influenz ae type b vaccine, conjugate unspecified formulation Unknown Unknown [facility] Work Phone: 1996 Hib, unspecified formulation Tyrone Rock [facility] 1996 measles, mumps and rubella virus vaccine Unknown Unknown [facility] Work Phone: 1996 varicella virus vaccine Unknown Unknown [facility] Work Phone: 1996 diphtheria, tetanus toxoids and acellular pertussis vaccine, unspecified formulation Unknown Unknown [facility] Work Phone: 1996 DTaP, unspecified formulation Tyrone Rock [facility] 1996 haemophilus influenz ae type b vaccine, conjugate unspecified formulation Unknown Unknown [facility] Work Phone: 1996 hepatitis B vaccine, pediatric or pediatric/adolescent dosage Unknown Unknown [facility] Work Phone: 1996 Hib, unspecified formulation Tyrone Rock [facility] 1996 trivalent poliovirus vaccine, live, oral Unknown Unknown [facility] Work Phone: 1996 hepatitis B vaccine, pediatric or pediatric/adolescent dosage Unknown Unknown [facility] Work Phone: Payers Date Payer Category Payer Self-pay [id number] 2023 Self-pay [id number] 2022 Private Health Insurance [id number] 2021 Unknown 2019 Commercial [employer]aged [employer] - PPO [id number] 1996 Unknown [id number] 2.16.84 0.1.719039.3.579.2.593 1996 Unknown [id number] 2.16.8 40.1.053775.3.579.2.727 1996 Unknown [id number] 2.16.8 40.1.231313.3.579.2.72 1996 Unknown [id number] 2.16.8 40.1.054660.3.579.2.727 1996 Unknown [id number] 2.16.840.1.155161.3.579.2.128 1996 Unknown [id number] 2.16.840.1.926999.3.579.2.128 1996 Unknown [id number] 2.16.840.1.628541.3.579.2.1285 1996 Unknown [id number] 2.16.840.1.162096.3.579.2.1285 1996 Unknown [id number] 2.16.8 40.1.888929.3.579.2.72 1996 Unknown [id number] 2.16.8 40.1.110814.3.579.2.72 1996 Unknown [id number] 2.16.8 40.1.536164.3.579.2. 1996 Unknown [id number] 2.16.8 40.1.043073.3.579.2.72 1996 Unknown [id number] 2.16.8 40.1.073447.3.579.2.727 1996 Unknown [id number] 2.16.84 0.1.485202.3.579.2.1259 1996 Unknown [id number] 2.16.84 0.1.858897.3.579.2.9 1996 Unknown [id number] 2.16.84 0.1.342871.3.579.2.1259 1996 Unknown [id number] 2.16.84 0.1.974328.3.579.2.1259 1996 Unknown [id number] 2.16.84 0.1.627005.3.579.2.1259 1996 Unknown [id number] 2.16.84 0.1.687836.3.579.2.1259 1996 Unknown [id number] 2.16.84 0.1.011418.3.579.2.1259 1996 Unknown [id number] 2.16.8 40.1.878659.3.579.2.727 1996 Unknown [id number] 2.16.8 40.1.761671.3.579.2.727 1996 Unknown [id number] 2.16.8 40.1.109919.3.579.2.727 1959 Unknown [id number] Unknown [id number] Unknown [id number] 2.16.8 40.1.059281.3.579.2.531 Unknown [id number] 2.16.8 40.1.733805.3.579.2.531 Unknown [id number] .16.8 40.1.805746.3.579.2.531 Unknown [id number] 2.16.8 40.1.876022.3.579.2.531 Unknown [id number] 2.16.8 40.1.755547.3.579.2.531 Unknown [id number] 2.16.8 40.1.715412.3.579.2.531 Unknown [id number] 2.16.8 40.1.303308.3.579.2.531 Unknown [id number] 2.16.8 40.1.918102.3.579.2.531 Unknown [id number] 2.16.8 40.1.892576.3.579.2.531 Unknown [id number] 2.16.8 40.1.464088.3.579.2.531 Unknown [id number] 2.16.8 40.1.508782.3.579.2.531 Unknown [id number] 2.16.8 40.1.700813.3.579.2.531 Social History Date Type Detail Facility Start: 07-14-2022 End: 03-21-2024 No alcohol use No alcohol use [facility] [address] DO Work Phone: Start: 12-29-2020 End: 08-04-2023 Tobacco smoking status MSIS Never smoked tobacco (finding) [facility] Start: 1995 Sex Assigned At Female [facility] Start: 07-14-2022 End: 03-21-2024 Sex Assigned At [facility] Other Tobacco smoking status Never [facility] Tobacco smoking status [facility] Tobacco smoking consumption unknown [facility] Start: 1996 Sex Assigned At Not on file [facility] Start: 04-17-2022 End: 07-14-2022 Exposure to SARS-CoV-2 (event) Not sure [facility] Start: 07-14-2022 End: 2024 Tobacco use and exposure Smokeless tobacco non-user [facility] Start: 07-14-2022 End: 09-07-2024 Alcohol intake Lifetime non-drinker (finding) [facility] Start: 07-13-2022 Gender identity Identifies as female gender (finding) [facility] Start: 02-16-2024 [facility] Start: 03-19-2015 End: 08-26-2024 Sex Female (finding) [employer] [facility] Comment on above: Denies Tobacco smoking status No Smoking Status Entered [facility] NEGATED: Highlighted rowStart: NINF History of tobacco use Passive smoker [facility] Medical Equipment Procedure Code Equipment Code Equipment Origin al Text Equipment Identifier Dates [place] 31G X 5 MM Start: 05-18-2022 Goals Date Patient Goal Desired Activity /State Personal health goal Functional Status Date Assessment Result Facility 09-06-2024 Functional Status N/A [facility] 09-05-2024 Functional Status N/A [facility] 09-05-2024 Functional Status N/A [facility] 03-18-2024 Functional Status N/A [facility] 09-29-2023 Functional Status N/A [facility] 03-22-2023 Functional Status N/A [facility] 02-18-2022 Functional Status N/A [facility] Clinical Notes 01-14-2022 to 09-07-2024 HIPOLITO Shore [...] H/O calculus of kidney during Tiffani's disease ([facility]/HCC) 02/2022 History of Obesity (BMI 30-39.9) Pericarditis [...] by HIPOLITO Shore on behalf of: HIPOLITO Shore documented in this encounter [facility] 09-07-2024 Note History and Physical HOSPITAL [...] scheduled. Rogelio Nath M.D. leeroy Dictated: 09/05/2024 [id number] Transcribed: 09/05/2024 [facility] Comment on above: Result Comment: Elec tronically Signed By: Rogelio Nath MD\.br\Date and Time Signed: 09/07/24 08:38 EST 09-06-2024 Hospital Discharg e instructions Patient Education 09/06/2024 16:15:07 Concussion, Adult, Yxwu-si-Hrgf Concussion, Adult A concussion is a brain [...] if you are dizzy. General instructions Take qica-pfp-mvhplqq and prescription medicines only as told by your doctor. Avoid taking strong pain medicines (opioids) after a concussion. Do not drink alcohol until your doctor says you can. Watch your symptoms and tell other people to do the same. Other problems can occur after a concussion. Tell your mud worker, teachers, school nurse, school counselor, job coaching, or security trainer about your injury and symptoms. Tell [...] the National Suicide Prevention Lifeline at or 607. This is open 24 hours a day. Text the Crisis Text Line at 294206. This information is not intended to replace advice given to you by your health care provider. Make sure you discuss any questions you have with your health care provider. Document Revised: 12/25/2022 Document Reviewed: 12/25/2022 [employer] Patient Education 2023 [employer]itives. Follow Up Care 09/06/2024 13:58:27 [facility] Address: [address] [place] [id number] [phone] Business (1) When:09/09/2024 16:14:40 Comments:Call to schedule a follow-up appointment with your primary care provider. Use Zofran as needed for nausea/vomiting. Return to the ED with any new or worsening symptoms. [facility] 09-06-2024 Note ED Patient Education Note Neurology [...] you are dizzy. General instructions ??? Take ljlf-wbj-ujaajca and prescription medicines only as told by your doctor. ??? Avoid taking strong pain medicines (opioids) after a concussion. ??? Do not drink alcohol until your doctor says you can. ??? Watch your symptoms and tell other people to do the same. Other problems can occur after a concussion. ??? Tell your mud worker, teachers, school nurse, school counselor, job coaching, or security trainer about your injury and symptoms. Tell [...] You have any (more content not included)... [facility] 09-06-2024 Evaluation + Plan note Extrac hamilton [...] date 09/06/24 15:25:00 EST, 09/06/24 15:25:00 EST [facility] [id number] NoteDischarge Instructions Given Worsening The following Patient Education Materials have been given to the patient: ~~ [facility] Evaluation + Plan note Extracted from: Title:ED [...] Diagnostic Tests Pending * Urine Culture 09/05/24 [facility] 01-21-2025 Hospital Discharge instructions Patient Education 09/05/2024 04:35:45 Syncope, Adult, Csge-zj-Msci Syncope, Adult Syncope is when you pass [...] right away. Call your local emergency services (541 in the [place] Follow these instructions at [...] you until you feel better. Medicines Take dfeh-rqs-hbshscf and prescription medicines only as told by [...] Document Reviewed: 12/11/2021 [employer] Patient Education 2023 [employer]. 09/05/2024 04:35:45 Nausea and Vomiting, Adult, Gsyo-ph-Buys Nausea and Vomiting, Adult Nausea is feeling [...] fruit juice). ?Low-calorie sports drinks. Eat bland, dglg-ie-sljhmf foods in small amounts as you are able, such as: ?Bananas. ?Applesauce. ?Rice. ?Low-fat (lean) meats. ?Holliday. ?Crackers. Avoid drinking fluids that have a lot of sugar or caffeine in them. This includes energy drinks, sports drinks, and soda. Avoid alcohol. Avoid spicy or fatty foods. General instructions Take vlzj-huy-rzevzod and prescription medicines only as told by your doctor. Drink enough fluid to keep your pee (urine) pale yellow. Wash your hands often with soap and water for at least 20 seconds. If you cannot use soap and water, use hand multi skilled operator. Make sure that everyone in your home [...] your doctor about eating and drinking. Take xrvg-bzm-kesjrwz and prescription medicines only as told by your doctor. Contact your doctor if your symptoms get worse or you have new symptoms. Keep all follow-up visits. This information is not intended to replace advice given to you by your health care provider. Make sure you discuss any questions you have with your health care provider. Document Revised: 02/06/2022 Document Reviewed: 02/06/2022 [employer] Patient Education 2023 [employer]. 09/05/2024 04:35:45 Diarrhea, Adult, Sguy-eg-Gxlf Diarrhea, Adult Diarrhea is when you pass [...] regular sports drinks. ?Avoid alcohol. Eat bland, ttwm-dz-awsvnj foods in small amounts as you are able. These foods include: ?Bananas. ?Applesauce. ?Rice. ?Low-fat (lean) meats. ?Holliday. ?Crackers. Avoid spicy or fatty foods. Medicines Take sbez-jws-xjzavgk and prescription medicines only as told by your doctor. If you were prescribed antibiotics, take them as told by your doctor. Do not stop taking them even if you start to feel better. General instructions Wash your hands often using soap and water for 20 seconds. If soap and water are not available, usehand multi skilled operator. Others in your home should wash their [...] provider. Document Revised: 01/19/2023 Document Reviewed: 01/19/2023 [employer] Patient Education 2023 [employer]. 09/05/2024 04:35:45 Dehydration, Adult, Apdi-oy-Qvvd Dehydration, Adult Dehydration is a condition in [...] or sea (high in altitude). The thinner, long goods drier air causes more fluid loss. Doing exercises [...] of fat or sugar. General instructions Take xtuh-peq-qqmemzz and prescription medicines only as told by [...] provider. Document Revised: 03/01/2023 Document Reviewed: 03/01/2023 [employer] Patient Education 2023 [employer]. Follow Up Care 09/05/2024 03:04:39 With:Brain SEAMUS Address: [address] 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 Way for further evaluation management. Please return to the ED for any new or worsening symptoms. [facility] [id number] NoteProgress Note-Nurse @1907 OB RN arrived in patient room in ER room 14. Patient placed on & ctx monitor. Patient ctx every 2-5 min 40-60 sec with some 20-30sec irritability. Ctx mild to palpation. Pt rates them 4/10 on pain scale. reactive for gestation with baseline HR of 130. RN will report finding to OB Dr Nath and ask about admission for further evaluation on OB unit.[facility]01-21-2025 NoteED Patient Education Note Gastroenterology Nausea and [...] ? Low-calorie sports drinks. ??? Eat bland, urny-ze-ewwrgz foods in small amounts as you are able, such as: ? Bananas. ? Applesauce. ? Rice. ? Low-fat (lean) meats. ? Holliday. ? Crackers. ??? Avoid drinking fluids that have a lot of sugar or caffeine in them. This includes energy drinks, sports drinks, and soda. ??? Avoid alcohol. ??? Avoid spicy or fatty foods. General instructions ??? Take iyab-fzo-zukwzki and prescription medicines only as told by your doctor. ??? Drink enough fluid to keep your pee (urine) pale yellow. ??? Wash your hands often with soap and water for at least 20 seconds. If you cannot use soap and water, use hand multi skilled operator. ??? Make sure that everyone in your [...] doctor about eating and drinking. ??? Take lmbe-lml-eihptmp and prescription medicines only as told by your doctor. ??? Contact your doctor if your symptoms get worse or you have new symptoms. ??? Keep all follow-up visits. This information is not intended to replace advice given to you by your health care provider. Make sure you discuss any questions you have with your health care provider. Document Revised: 02/06/2022 Document Reviewed: 02/06/2022 [employer] Patient Education ? 2023 [employer] Inc. Infectious Disease Diarrhea, Adult Diarrhea is [...] Take an ORS (ora (more content not included)...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 Work Phone: 1(193) 174-629701-08-2025 History of Present illness Narrative* Aleisha Abreu, [...] nursing note reviewed. Exam conducted with a face worker present. Vitals: Estimated body mass index is [...] of: Brain Way DO documented in this encounterSaint Mary's Health CenterVstvqhnbdp35-01-0431 History of Present illness Narrative* Aleisha Abreu [...] H/O calculus of kidney during Tiffani's disease ([facility]) 02/2022 History of Obesity (BMI 30-39.9) Pericarditis HISTORY PAST MEDICAL HISTORY SOCIAL HISTORY Past Medical History: Diagnosis Date Anxiety Blood type, Rh positive H/O calculus of kidney during Tiffani's disease ([facility]) 02/2022 History of Obesity (BMI 30-39.9) Pericarditis [...] nursing note reviewed. Exam conducted with a face worker present. Vitals: Estimated body mass index is [...] of: Brain Way DO documented in this encounterSaint Mary's Health [id number] History of Present illness Narrative* Laura Herron [...] male Have you been seen here at [facility] in a previous ? No Recent ER visits or hospitalizations? no Bring blood sugar log or meter with you today? (Please bring them with you for every visit at [facility]) n/a Flu vaccine (Jun-October)? Yes Any concerns [...] effusion. Also she was then evaluated by behavioral assistant who told her that she had pericarditis and that resolved with a taking Motrin however she did not had an echocardiogram. Saw Dr. Coronado. 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 Yes NotIn System Ref Prov hn946-ejac-rarjm acid ( 19) 29 mg iron- 1 [...] would recommend she establishes care with a lining cleaner for it to be further evaluated 7. [...] Please refer her locally to see a lining cleaner for the incidental finding on the CT [...] Hayden Reilly MD, FACOG (she/hers) Maternal- Medicine [facility] [address] [facility] [address] [place] [address] This document was created with UniServity technology. Though I make every effort to review the dictation as it is transcribed, on occasion the spoken word can be misinterpreted by the technology leading to inappropriate words, phrases, or sentences. This note is addressed to the requesting provider as a consultation for clinical guidance. Specificmedical abbreviations are occasionally used and those are generally approved by the [place]?Board of?Obstetrics and?Gynecology?as well as?Lauryn lund abbreviations. The above plan of care was based solely on the diagnoses for which a consultation was requested. ?More frequent testing may be indicated based on her other medical/obstetrical conditions. The management of other or medical conditions is beyond the scope of requested consultation and will c ontinue to be followed by the primary power generation technician or primary care provider. Note to patient: [...] opinion of the practitioner. documented in this encounterOhio[facility] Radiology Diagnostic study [facility] [place] [address] Ultrasound Report Signed Patient: Tawnya Herring MR#: [id number] : 1995 Acct:[id number] Age/Sex: 28 / F ADM Date: 4 Loc: Room: Type: [facility] Attending Dr: Brain Way DO Ordering [...] Norton Jr., D.O.06/22/2024 4:00 PM Dictation Location: [place] [address] Tech: Rae De Paz Transcribed By: AGUILAR 06/22/24 1600 Dictated By: Zay Norton Jr, DO 06/22/24 1552 Signed By: 06/22/24 1600 [facility]10-28-2024 History of Present illness Narrative * [...] H/O calculus of kidney during Tiffani's disease ([facility]) 02/2022 History of Obesity (BMI 30-39.9) Pericarditis [...] of: Brain Way DO documented in this encounterSaint Mary's Health CenterDuvqzotmqy87-30-5592 Evaluation note* Diagnosis Onset Date Resolution Status Admit Date Well adult exam noneactive May 11, 2024 10:46am [facility] Work Phone: 1(132) 717-200209-25-2024 History of Present illness Narrative* Aleisha Abreu [...] H/O calculus of kidney during Tiffani's disease ([facility]) 02/2022 History of Obesity (BMI 30-39.9) Pericarditis HISTORY PAST MEDICAL HISTORY SOCIAL HISTORY Past Medical History: Diagnosis Date Anxiety Blood type, Rh positive H/O calculus of kidney during Tiffani's disease ([facility]) 02/2022 History of Obesity (BMI 30-39.9) Pericarditis [...] nursing note reviewed. Exam conducted with a face worker present. Vitals: Estimated body mass index is [...] of: Brain Way DO documented in this encounterSaint Mary's Health CenterYkwvnxztwi55-61-2846 History of Present illness Narrative* Coral Rg [...] H/O calculus of kidney during Tiffani's disease ([facility]) 02/2022 History of Obesity (BMI 30-39.9) Pericarditis HISTORY PAST MEDICAL HISTORY SOCIAL HISTORY Past Medical History: Diagnosis Date Anxiety Blood type, Rh positive H/O calculus of kidney during Tiffani's disease ([facility]) 02/2022 History of Obesity (BMI 30-39.9) Pericarditis [...] nursing note reviewed. Exam conducted with a face worker present. Vitals: Estimated body mass index is [...] obtained without difficulty and [facility]. Patient advised to take ASA 81mg. Orders Placed This Encounter Procedures CHLAMYDIA TRACHOMATIS (GENITO/STI) Neisseria gonorrhea DNA probe, direct POCT urinalysis dipstick manually resulted Follow Up: Patient is to return to our office in 4 weeks for routine OB appointment Documented by Coral Rg LPN on behalf of: Brain Way DO documented in this encounterSaint Mary's Health CenterLvvtwusfbe91-97-5644 History of Present illness Narrative* Thelma Elizabeth [...] H/O calculus of kidney during Tiffani's disease ([facility]) 02/2022 History of Obesity (BMI 30-39.9) Pericarditis [...] or undercooked meat, and stay away from [facility]. Patient has also been advised to [...] by: Thelma Elizabeth LPN documented in this encounterSaint Mary's Health CenterSbjdcbypmx61-07-1679 Hospital Discharge instructions Patient Education 03/18/2024 12:15:03 [...] provider. Document Revised: 01/31/2021 Document Reviewed: 01/31/2021 [employer] Patient Education 2022 [employer]. 03/18/2024 12:15:03 Subchorionic Hematoma Subchorionic Hematoma [...] provider. Document Revised: 04/28/2021 Document Reviewed: 04/28/2021 [employer] Patient Education 2022 [employer]. Follow Up Care 03/18/2024 08:08:01 With:Rogelio Nath Address: [address] [facility] [address] [place] [address]- Business (1) When:03/21/2024 11:54:39 With:DARWIN JONES Address: [address] [facility] [place] [address]- [phone] Business (1) When:Within 3 Day(s) [facility] 08-03-2024 NoteED Patient Education Note Obstetrics and [...] provider. Document Revised: 01/31/2021 Document Reviewed: 01/31/2021 [employer] Patient Education ? 2022 [employer] Subchorionic Hematoma A hematoma is a collection of blood outside of the blood vessels. A subchorionic hematoma is a collection of blood between the outer wall of the embryo (chorion) and the inner wall of the uterus. This condi (more content not included)...[facility]04-04-2024 NoteHNO ID: [id number] Author: RUBY WHITTINGTON MD Service: ? Author [...] RTN 1 year. Ruby Whittington MD Endocrinology StaffK[facility]tering [facility]04-04-2024 History of Present illness Narrative* Ruby Whittington [...] MD Endocrinology Staff documented in this encounterCleveland [id number] Instructions* Patient Instructions* Odalis Greene - 11/18/2023 7:58 AM EDT Thank you for choosing the [facility] Department of Endocrinology, Diabetes and Metabolism. Did you know that you need to call 48 hours in advance of your scheduled visit, if you are unable to make your appointment? [facility] thanks you for your commitment, because patients not showing to their appointment results in a lost opportunity for patients to receive [facility] health care at the [facility]. To Cancel an appointment, please choose one of the following: - Call the Appointment Call Center at [phone] - From [place] [employer], Go to Appointments - Cancel Appts If cancelling, consider your need to reschedule to prevent further delays in your care. To Schedule an appointment, please choose one of the following: - Call the Appointment Call Center at [phone] - From [place] [employer], Go to Appointments - Request an Appt documented in this encounterThe [facility]02-14-2024 Hospital Discharge instructions Patient Education 09/29/2023 11:05:01 [...] numbers. This can be done either in [place] or metric measurements. Note that charts and online BMI calculators are available to help you find your BMI quickly and easily without having to do these calculations yourself. To calculate your BMI in [place] measurements: 1.Measure your weight in pounds [...] Centers for Disease Control and Prevention: www.cdc.gov [place] Heart Association: www.heart.org National Heart, Lung, and Blood [place]: www.nhlbi.nih.gov Summary Body mass index (BMI) is a number that is calculated from a person's weight and height. BMI may help estimate how much of a person's weight is composed of fat. BMI can help identify thosewho may be at higher risk for certain medical problems. BMI can be measured using Vincentian measurements or metric measurements. BMI charts are used to identify whether you are underweight, normal weight, overweight, or obese. This information is not intended to replace advice given to you by your health care provider. Make sure you discuss any questions you have with your health care provider. Document Revised: 04/24/2020 Document Reviewed: 03/01/2020 [employer] Patient Education 2022 [employer]. 09/29/2023 11:04:59 Sinus Infection, Adult Sinus Infection, [...] saline washes). ?Medicines that treat allergies (antihistamines). ?Crfv-xah-czaywsk pain relievers. If caused by bacteria, your [...] at home: Medicines Take, use, or apply hxzw-yoj-dmwxamr and prescription medicines only as told by [...] and water are not available, use hand multi skilled operator. Do not smoke. Avoid being around [...] provider. Document Revised: 07/07/2022 Document Reviewed: 07/07/2022 [employer] Patient Education 2022 [employer]. Follow Up Care 09/29/2023 09:12:00 With:DARWIN JONES CNP Address: [facility] [place] [address]- When: Unknown [facility] 02-06-2024 Evaluation note* Encounter [...] BMI is required on scripts in the [facility]. Sep, Other *Progress note was completed with the assistance of voice recognition software for dictation purposes. Please excuse any grammatical errors that were not corrected during review process. Payoff Other 01-10-2024 Evaluation note* Encounter Date Diagnosis [...] that were not corrected during review process. Payoff Other 12-01-2023 Miscellaneous Notes* Telephone Encounter - Kenan Gomez - 07/16/2023 9:39 AM EST LVM to let patient know their appt has been rescheduled with Dr. Whittington. documented in this encounterThe [facility]11-08-2023 Evaluation note* Encounter Date Diagnosis Assessment Notes [...] comfortable prescribing this medication at this time. Payoff Other 10-24-2023 NoteHNO ID: [id number] Author: Francy Gan PA-C Service: ? Author Type: Physician Electronics Scale Tester Type: Progress Notes Filed: 06/08/2023 2:53 PM [...] will be in touch with results via [place] [employer] HPI: Tawnya is a 27 year old [...] testing/treatment Medical Decision Making Level: 3 - [facility]10-24-2023 History of Present illness Narrative* Francy Gan [...] Level: 3 - Low documented in this [facility]10-24-2023 Instructions* Patient Instructions* Francy Gan PA-C - 06/08/2023 2:16 PM EDT Continue the omeprazole for another 1.5 months documented in this [facility]10-11-2023 Evaluation note* Encounter Date Diagnosis Assessment [...] that were not corrected during review process. Payoff Other 09-13-2023 Evaluation note* Encounter Date Diagnosis [...] term 8 week course vs. termite exterminator helper management. Discussed pros and cons of taking [...] that were not corrected during review process. Payoff Other 09-01-2023 Evaluation note* Encounter Date Diagnosis [...] SCANNED INTO PATIENT CHART AND FAXED TO [facility]. Apr, Other We did briefly discussed the [...] that were not corrected during review process. Payoff Other 08-08-2023 Hospital Discharge instructions Patient Education 03/22/2023 22:52:44 Urinary Tract Infection, Adult, Ukpm-lg-Jpez Urinary Tract Infection, Adult A urinary tract [...] Follow these instructions at home: Medicines Take mymc-lic-mutirpf and prescription medicines only as told by [...] provider. Document Revised: 03/14/2021 Document Reviewed: 03/14/2021 [employer] Patient Education 2022 [employer]. Follow Up Care 03/22/2023 19:54:03 [facility] Address: [address] [place] [phone] [phone] Business (1) When:03/25/2023 Comments:Follow-up with your primary care provider in 3 to 5 days. If symptoms worsen, do not improve, or new symptoms arise please report back to emergency department for further evaluation. [facility]08-07-2023 Evaluation + Plan note Diagnostic Tests Pending * Urine Culture 03/22/23 [facility]03-02-2023 Evaluation note* Encounter Date Diagnosis Assessment Notes Treatment Notes Treatment Clinical Notes Oct, Nausea & vomiting (ICD-10 - R11.2) Payoff Other 02-20-2023 Evaluation note* Encounter Date Diagnosis [...] Encounter for weight management (ICD-10 - Z76.89) Payoff Other 02-13-2023 Miscellaneous Notes* Addendum Note - [...] daily. Ruby Whittington MD documented in this encounterThe [facility]01-18-2023 Evaluation note* Encounter Date Diagnosis Assessment Notes [...] Encounter for weight management (ICD-10 - Z76.89) Payoff Other 01-10-2023 Evaluation note* Encounter Date Diagnosis [...] as inspiration Patient set the following goals: Payoff Other 12-16-2022 Evaluation note* Encounter Date Diagnosis [...] E06.3) She was recently seen by an superintendent seed mill at [facility] for elevated TSH. She is currently on adequate supplementation and will follow up with them. Jul, Daytime sleepiness (ICD-10 - R40.0) Continue to work on good sleep hygiene and control factors that she can.This could also improve with additional water intake. Jul, Mild depression (ICD-10 - F32.9) Jul, Encounter for weight management (ICD-10 - Z76.89) Payoff Other 11-29-2022 History of Present illness Narrative* [...] Endocrinology Staff CC: Darwin Jones APRN, CNP. [address] [place] [id number] documented in this encounterThe [facility] Hospital11-29-2022 Instructions* Patient Instructions* Soo Begum Ma - 07/14/2022 8:46 AM EST Thank you for choosing the [facility] Department of Endocrinology, Diabetes and Metabolism. Did you know that you need to call 48 hours in advance of your scheduled visit, if you are unable to make your appointment? [facility] thanks you for your commitment, because patients not showing to their appointment results in a lost opportunity for patients to receive [facility] health care at the [facility]. To Cancel an appointment, please choose one of the following: - Call the Appointment Call Center at [phone] - From [place] [employer], Go to Appointments - Cancel Appts If cancelling, consider your need to reschedule to prevent further delays in your care. To Schedule an appointment, please choose one of the following: - Call the Appointment Call Center at [phone] - From [place] [employer], Go to Appointments - Request an Appt documented in this encounterThe [facility] Hospital11-02-2022 Evaluation note* Encounter Date Diagnosis Assessment Notes [...] samples and titrate her up slowly until [facility] insurance kicks in in August. We [...] will discuss at later date if needed. Payoff Other 10-20-2022 Evaluation note* Encounter Date Diagnosis [...] Pt understood and agreed to tx plan. Payoff Other 10-12-2022 Evaluation note* Encounter Date Diagnosis [...] patient set personal goal using given handout. Payoff Other 10-10-2022 Miscellaneous Notes* Telephone Encounter - Linn Hancock - 05/25/2022 2:35 PM EDT LVM for patient that appt on 05/[address] George has been rescheduled to 07/[address] [facility] [address] Dr. Robertson. sending mail reminder as well. 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 Her Mallampati is not [...] of a comprehensive approach to obesity management Payoff Other 09-02-2022 Evaluation note* Encounter Date Diagnosis [...] to start the weight management program at [facility] in the coming months.Nothing further needed [...] that were not corrected during review process. Payoff Other 07-07-2022 Hospital Discharge instructions Patient Education [...] Follow these instructions at home: Medicines Take rlxt-axc-gqamink and prescription medicines only as told by [...] 04/27/2002 Document Revised: 08/05/2018 Document Reviewed: 05/14/2017 [employer] Patient Education 2020 [employer]. 02/18/2022 22:49:49 Migraine Headache Migraine Headache A [...] Follow these instructions at home: Medicines Take tlcq-okf-gprqfdb and prescription medicines only as told by your health care provider. Ask your health care provider if the medicine prescribed to you: ?Requires you to avoid driving or using heavy machinery. ?Can cause constipation. You may need to take these actions to prevent or treat constipation: ?Drink enough fluid to keep your urine pale yellow. ?Take lkiy-wgu-jrbafdn or prescription medicines. ?Eat foods that are [...] 08/02/2006 Document Revised: 11/24/2019 Document Reviewed: 09/14/2019 [employer] Patient Education 2020 [employer] Follow Up Care 02/18/2022 20:32:17 With:DARWIN JONES Address: [address] [place] [phone] Business (1) When:Within 3 Day(s) [facility]07-06-2022 Evaluation + Plan noteExtracted from: Title:ED Note [...] voices understanding and is agreeable to plan. [facility]07-06-2022 Evaluation note* Encounter Date Diagnosis Assessment Notes [...] and remind her of lab draw at [facility]. Feb, Thyromegaly (ICD-10 - E01.0) Discussed [...] that were not corrected during review process. 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 Medical History Abnormal thyroid ult rasound February 2022 work-up pending by ENT Surgical History 2018 Surgical History Cystoscopy 05/2021 Surgical History 2020 Hospitalization History See surgical hx 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 Payoff Other 06-01-2022 History general Narrative - Reported* Type Description Date Medical History Anxiety Medical History pericardi tis- Resolved cardiology signed off Medical History Kidney stones during Medical History Elevated TSH January 2022 Surgical History 2018 Surgical History Cystoscopy 05/2021 Surgical History 2020 Hospitalization History See surgical hx Payoff Other Evaluation noteNo assessment information available [facility] Work Phone: Evaluation noteNo InformationNort A V.E.T.S.c.a.r.e. 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 [facility]* Diagnosis Dysphagia, unspecified type- Primary LPRD (laryngopharyngeal reflux disease) Other diseases of larynx documented [facility] this encounter [facility]* Diagnosis Onset Date Resolution Status Obesity [facility] Work Phone: Evaluation note* Diagnosis 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 Work Phone: evaluation note* Diagnosis Onset Date Resolution Status Class 2 obesity with body ma ss index (BMI) of 37.0 to 37.9 in adult acute Class 2 obesity with body ma ss index (BMI) of 37.0 to 37.[address] [facility] Work Phone: evaluation note* Diagnosis Onset Date Resolution Status Class 2 obesity with body ma ss index (BMI) of 37.0 to 37.[address] [facility] Work Phone: evaluation note* Diagnosis Onset Date Resolution Status Well adult exam noneactive [facility] Work Phone: evaluation note* Diagnosis Second [...] type Depression affecting [facility] Diagnosis 22 weeks gestation of [...] Surgical History 2020 Hospitalization History See surgical Payoff Other Hisnopa general Narrative - Reported* Type Description Date [...] Surgical History 2020 Hospitalization History See surgical Payoff Other Hisdwal general Narrative - Reported* Type Description Date [...] Surgical History 2020 Hospitalization History See surgical Payoff Other History of Present illness Narrative* Patient [...] no other testing or intervention appears necessary. [facility] Work [facility]: Hospital course Narrative No data available for this section [facility] SystemInstructionsNot on filedocumented in this encounter [facility]* Attachments The following attachments cannot be sent through Care Everywhere. * Preeclampsia (Vincentian) documented in [facility] encounterL[facility] SystemInstructionsNot on file documented in this encounterOhioHealth [facility]Progress note No data available for this section [facility] SystemReason for referral (narrative)* Reason Dr. Castillo in [facility] t Please send last 2 progress notes, Thyroid labs, US of thryoid and ENT progress notes with referral Diagnosis 1 Tiffani's disease (E06.3) Referral Organization [facility] Referring Provider First Name Darwin Referring Provider Last Name [facility] Referring Provider Specialty Nurse Pract christine Referred Provider Specialty Endocrinolog y Referral Priority Routine Payoff Other Reason for referral (narrative)* Diagnostic Procedure Only (Routine) - Pending Review Specialty Diagnoses / Procedures Referred By Contmatthew t Referred To Contact XR IMAGING Diagnoses Dysphagia, unspecified type Procedures XR MODIFIED BARIUM SWALLOW W SPEECH THERAPY RADIOLOGIC EXAM SWALLOW FUNCTION CONTRAST STUDY Francy Gan PA-C [address] [place] [address] [place] [address] Referral ID Status Reason Start Date Expiration Date Visits Requested Visits Authorized [id number] Pending Review Auto-Generat ed Referral 3 07/07/2024 1 1 [facility] Chief Complaint TAWNYA HERRING is being seen [...] Dysphagia, unspecifi ed type (R13.10) Referral Organization [facility] Referring Provider First Name Darwin Referring Provider Last Name [facility] Referring Provider Specialty Nurse Pract itioner Referred Organization [facility] Referred Address [address] [place], [place],[address] Referred Provider Specialty Ear, Nose an d Throat Referral Priority Routine Reason ABNORMAL US OF THYRO ID Newly discovered Hashimotos Diagnosis 1 Thyromegaly (E01.0) Referral Organization [facility] Referring Provider First Name Darwin Referring Provider Last Name [facility] Referring Provider Specialty Nurse Pract itioneheladio Referred Provider Specialty Ear, Nose an d Throat Referral Priority Routine Additional Source Comments INFORMATION SOURCE (unrecogn ized section and content) DATE CREATED AUTHOR 09/04/2021 [employer] DATE CREATED AUTHOR AUTHOR'S ORGANIZ ATION 12/18/2022 [facility] DATE CREATED AUTHOR AUTHOR'S ORGANIZ ATION 11/22/2023 [facility] DATE CREATED AUTHOR AUTHOR'S ORGANIZ ATION 03/20/2024 [facility] DATE CREATED AUTHOR AUTHOR'S ORGANIZ ATION 08/05/2024 [facility] DATE CREATED AUTHOR AUTHOR'S ORGANIZ ATION 08/30/2024 [facility] DATE CREATED AUTHOR AUTHOR'S ORGANIZ ATION 09/06/2024 [facility] DATE CREATED AUTHOR AUTHOR'S ORGANIZ ATION 09/08/2024 [facility] DATE CREATED AUTHOR AUTHOR'S ORGANIZ ATION 09/09/2024 [facility] DATE CREATED AUTHOR AUTHOR'S ORGANIZ ATION 09/13/2024 [facility] DATE CREATED AUTHOR AUTHOR'S ORGANIZ ATION 09/14/2024 [facility] Care Teams (unrecognized sec tion [...] Brain Way Attending Provider Active Start: [facility] 2023 End: November 01, 2023 Team Status: [...] Member Role Status Dates Darwin Jones , [employer]ER Primary Care Provider Active Addi Ortega DO [facility] Attending Provider Active Team Status: Inactive Member Role Status Dates Darwin Jones , [employer] Primary Care Provider Active Brain Way Attending Provider Active Team Status: Active Member Role Status Dates Darwin Jones , [employer] OFF[employer]ER Primary Care Provider Active Ofelia Hester APRN Active Ofelia Hester , SHIRLEY Attending Provider Active Team Status: Inactive Member Role Status Dates Darwin Jones , [employer] OFF[employer]ER Primary Care Provider Active Ofelia Hester , SHIRLEY Attending Provider Active Team Status: Inactive Member Role Status Dates PHYSICIAN NO FAMILY Primary Care Provider Active Addi Ortega DO [facility] Attending Provider Active Team Status: Active Member Role Status Dates PHYSICIAN NO FAMILY Primary Care Provider Active Team Status: Inactive Member Role Status Dates Darwin Jones , [employer]ER Primary Care Provider, Attend ing Provider Active Team Status: Inactive Member Role Status Dates Darwin Jones , [employer] Primary Care Provider Active Saad Valera DO Attending Provider Active Front Desk Receptionist Relationship Specialty Start Date End Date RoberterDarwin cavazos, HUMAN RESOURCES RECRUITER [address] [address] Referring Family Medicine 04/22/22 Front Desk Receptionist Relationship Specialty Start Date End Date Darwin Jones, HUMAN RESOURCES RECRUITER [address] [address] Referring Family Medicine 04/22/22 Team Status: Inactive Member Role Status Dates Darwin oJnes , [employer] OFFICER Primary Care Provider Active Jeovanny Quiros DO Emergency Provider Active Front Desk Receptionist Relationship Specialty Start Date End Date EasterwoodHervea, HUMAN RESOURCES RECRUITER [address] [facility] [address] [place] [address] Referring Family Medicine 04/22/22 Front Desk Receptionist Relationship Specialty Start Date End Date EasterwoodHervea, HUMAN RESOURCES RECRUITER [address] [facility] [place] [address] Referring Family Medicine 04/22/22 Team Status: Inactive Member Role Status Dates Darwin Jones APRN Attending Provider Active Start: July 23, 2023 End: July 23, 2023 Team Status: Inactive Member Role Status Dates Darwin Jones APRN Attending Provider Active Start: August 25, 2023 End: August 25, 2023 Front Desk Receptionist Relationship Specialty Start Date End Date Darwin Jones CNP [address] [place] [address] [address] [place] [address] Referring Family Medicine 04/22/22 Team Status: Inactive [...] End: April 06, 2024 Addi PERES DO [facility] Attending Provider Active Start: April 06, 2024 [...] May 24, 2024 End: May 24, 2024 Front Desk Receptionist Relationship Specialty Start Date End Date No Pcp, [place] [address] PCP - General Family Medicine 08/19/19 Front Desk Receptionist Relationship Specialty Start Date End Date No Pcp, [place] [address] PCP - General Family Medicine 08/19/19 Team [...] June 28, 2024 End: June 28, 2024 Front Desk Receptionist Relationship Specialty Start Date End Date No Pcp, [place] [address] PCP - General Family Medicine 08/19/19 Team [...] been rescheduled to 07/[address] [facility] with Dr. Robertson. sending mail reminder [...] or prosecute any alcohol or drug abuse patient.[facility] the event this information is protected by the Federal Confidentiality of Alcohol and Drug Abuse Patient Records regulations: The Federal rules restrict any use of the information to criminally investigate or prosecute any alcohol or drug abuse patient.[facility] HospitalIn the event this information is protected by the Federal Confidentiality of Alcohol and Drug Abuse Patient Records regulations: The Federal rules restrict any use of the information to criminally investigate or prosecute any alcohol or drug abuse patient.[facility] HospitalIn the event this information is protected by the Federal Confidentiality of Alcohol and Drug Abuse Patient Records regulations: The Federal rules restrict any use of the information to criminally investigate or prosecute any alcohol or drug abuse patient.[facility] HospitalIn the event this information is protected by the Federal Confidentiality of Alcohol and Drug Abuse Patient Records regulations: The Federal rules restrict any use of the information to criminally investigate or prosecute any alcohol or drug abuse patient.[facility] HospitalIn the event this information is protected by the Federal Confidentiality of Alcohol and Drug Abuse Patient Records regulations: The Federal rules restrict any use of the information to criminally investigate or prosecute any alcohol or drug abuse patient.[facility] FOR RECORDS PERTAINING TO PATIENTS WHO ARE [...] BASED ON THE PRIMARY CLINICAL RECORDS. [facility]. provides no warranty or guarantee of the accuracy or completeness of information in this document.
[2024-09-14 20:48] VITALS: BP 112/57; PULSE 86
== END 2024-09-14 20:23 | disposition home or self-care (01) ==
LOC: US 18:51 → FBC 20:28
PROVIDERS: PCP Nurse Practitioner Family; Visit Provider Obstetrics & Gynecology
DX: O36.63X1 Maternal care for excessive fetal growth, third trimester, fetus 1 (principal); Z3A.32 32 weeks gestation of pregnancy
CPT/HCPCS: 76818; G0378; G0379

== ENCOUNTER 2024-09-19 01:31 | Outpatient (OUT) | payer OTHER, SELFPAY ==
--- OUTSIDE RECORDS SUMMARY | 2024-09-19 01:36 | XMS_ITS | CCD ---
Author Organization [facility] Care Team Providers Care Extrusion Die Coordinator Name Role Phone Unknown, Unknown Unavailable Unavailable Unavailable Unavailable NO FAMILY, PHYSICIAN Primary Care Provider Unava ilable DO Addi Ortega Attending Provider Darwin Jones Unavailable DARWIN JONES Primary Care Physician [phone] Lilly Luke Unavailable SHIRLEY Jones Primary Care Provider SHIRLEY Jones Attending Provider [phone] DO Saad Valera Attending Provider Ofelia Hester Unavailable [facility] AMIE Darwin Unavailable [phone] Sima Ross Unavailable [facility] AMIE Darwin Unavailable [phone] SHIRLEY Jones Primary Care Provider [phone] SHIRLEY Hester Attending Provider SHIRLEY Jones Primary Care Provider SHIRLEY Hester Attending Provider [phone] Attending Provider REQUEST, DR HOBSON LISTED Primary Care Unavaila ble SEAMUS ., DR YEUNG Attending Unavailable SEAMUS ., DR YEUNG Consulting Unavailable SEAMUS ., DR YEUNG Admitting Unavailable SHIRLEY Jones Primary Care Provider DO Addi Ortega [facility] Provider DO Jeovanny Quiros Emergency [facility] Primary Care Provider DO Addi Ortega Attending Provider [phone] [facility] Attending Provider [phone] [facility] Primary Care Provider Brain Way Attending [facility] Primary Care Provider Brain Way Attending Provider [phone] RUBY WHITTINGTON Attending Unavailable FRANCY GAN Attending Unavailable [facility] SHIRLEY Anaya Primary Care Provider Brain Way Attending Provider [facility] Primary Care Provider DO Brain Way Attending Provider [place] Attending Unavailable Gabriel Curtis Attending Unavailable Tyrone Rock Attending Unavailable [facility] Primary Care Provider DO Brain Way Attending Provider [phone] [facility] DO Addi PERES Attending Provider [facility] Primary Care Provider DO Brain Way Attending Provider [facility] Primary Care Provider DO Brain Way Attending Provider Unavailable Primary Care Provider Unavailabl e No Pcp, No Pcp Primary Care Provider Unavailabl e [facility] Darwin WATSON Primary Care Provider [facility] Addi SELLERS Attending Provider Brain Way DO Attending Provider SEAMUS, BRAIN R Referring Unavailable NO PCP, NO PCP Primary Care Unavailable RUPA REILLYA P Attending Unavailable NO PCP, NO PCP Primary Care Unavailable DOCKRISTINEVA, NIKOLINA P Referring Unavailable DARCY ENRIQUEZ Attending Unavailable SEAMUS, BRAIN R Referring Unavailable NO PCP, NO PCP Primary Care Unavailable [facility] Darwin WATSON Primary Care Provider Brain Way DO Attending Provider [phone] Mary Ellen Bruce MD Attending Provider DO Gabriel Curtis Attending Unavailable [place] Attending Unavailable Rogelio Nath Attending Unavailable Rogelio Nath Admitting Unavailable Rogelio Nath Attending Unavailable Pham, Rogelio Robins Admitting Unavailable MYA FINCH Attending Unavailable SEAMUS, BRAIN Attending Unavailable SEAMUS, BRAIN Attending Unavailable SEAMUS, BRAIN Attending Unavailable SEAMUS, BRAIN Attending Unavailable SEAMUS, BRAIN Attending Unavailable Flash Franco Attending Unavailable [facility] Primary Care Unavailable Seamus, Rbain Attending Unavailable Seamus, Brain Admitting Unavailable Mary Ellen Bruce Attending Unavailable Darwin Jones Primary Care Unavailable Mary Ellen Bruce Admitting Unavailable Mary Ellen Bruce Admitting Unavailable Mary Ellen Bruce Attending Unavailable Darwin Jones Primary Care Unavailable Seamus, Brain Attending Unavailable [place], Darwin J Primary Care Unavailable Seamus, Brain Admitting Unavailable Seamus, Brain Attending Unavailable [place] Primary Care Unavailable Seamus, Brain Admitting Unavailable Seamus, Brain Attending Unavailable EasterwoodDarwin J Primary Care Unavailable Seamus, Brain Admitting Unavailable [place], Darwin J Primary Care Unavailable Seamus, Brain Attending Unavailable Seamus, Brain Admitting Unavailable [place], Darwin J Primary Care Unavailable Seamus, Brain Attending Unavailable Seamus, Brain Admitting Unavailable [facility], Addi P Admitting Unavailable [facility], Addi P Attending Unavailable [place], Darwin J Primary Care Unavailable [place], Darwin J Primary Care Unavailable Seamus, Brain Attending Unavailable Seamus, Brain Admitting Unavailable Darwin Jones Primary Care Unavailable Seamus, Brain Attending Unavailable Seamus, Brain Admitting Unavailable Darwin Jones Primary Care Unavailable Seamus, Brain Attending Unavailable Seamus, Brain Admitting Unavailable Darwin Jones Primary Care Unavailable Seamus, Brain Attending Unavailable Seamus, Brain Admitting Unavailable Allergies Allergy Classification Reported Allergen(s) Allergy Type Date of Onset Reaction(s) Facility (6 sources) No Known Medication Allergies; Translations: [No Known Medication Allergies] Propensity to adverse reactions (disorder) [facility] Repository Medications Current Medications Medication Drug [...] tablet (2 sources) Opioid Agonist Start: 06-03-2021 [place] 325 mg-5 mg oral tablet 2 tab(s), [...] day(s), # 20 tab(s), Refills(s) 0, Pharmacy: [facility], 170.2, cm, 09/29/23 10:44:00 EST, Height/Length Dosing, 112, kg, 09/29/23 10:44:00 EST, Weight Dosing Start Date: 09/29/23 Stop Date: 10/09/23 Status: Ordered aspirin 81 mg delayed release oral tablet (20 sources) Platelet Aggregation Inhibitor, Nonsteroidal Anti-inflammatory Drug Start: 05-11-2024 aspirin 81 mg Oral EC Tab See Instructions, 1 tab(s) Oral, Refills(s) 0 Start Date: 09/05/24 Status: Ordered Start: 06-23-2021 take 1 mg by mouth [...] day(s), # 28 cap(s), Refills(s) 0, Pharmacy: [facility], 170.2, cm, 03/22/23 20:14:00 EDT, Height/Length Dosing, 113.5, kg, 03/22/23 20:14:00 EDT, Weight Dosing Start Date: 03/22/23 Stop Date: 03/29/23 Status: Ordered Start: 07-03-2021 take 1 capsule by [facility] twice daily Keflex 500 mg Cap 500 mg = 1 cap(s), Oral, BID, # 10 cap(s), Refills(s) 0, Pharmacy: [facility], 170, cm, 06/27/21 10:56:00 EST, Height/Length Dosing, 104, kg, 06/23/21 8:09:00 EST, Weight Dosing Start Date: 07/03/21 Status: Ordered Start: 12-29-2020 End: 10-07-2023 take 1 capsule by mouth every eight hours Cephalexin 500 mg capsule Discontinued 500 MG PO Q8H 05 03December 28, 2020 11:00pm October 07, 2023 6:06pm cholecalciferol 1000 unt extended release oral capsule (20 sources) Vitamin D Start: 08-25-2024 take 1000 [...] Start: 08-25-2024 take 1 capsule by mo [facility] once daily Levothyroxine 100 mcg capsule Active [...] daily. Magnesium Aspart,Citrate,Oxide 400 mg magnesium capsule (3 sources) Start : 08-25 take 1 capsule by mouth once daily Magnesium Aspart,Citrate,Oxide 400 mg magnesium capsule Active 400 MG PO Daily August 25, 2024 12:00am magnesium oxide 400 mg oral tablet (19 sources) Start : 05-24 End: 05-24 take [...] day(s), # 21 tab(s), Refills(s) 0, Pharmacy: [facility], 170.2, cm, 09/29/23 10:44:00 EST, Height/Length [...] omeprazole 20 mg delayed release oral capsule (14 sources) Proton Pump Inhibitor Start: 08-23-2024 End: [...] Apr, Active take 1 capsule by mo [facility] once daily omeprazole (PRILOSEC) 20 mg capsule [...] Date: 02/18/22 Stop Date: 02/21/22 Status: Ordered Zdm742-Dxkswhr Fumarate-Fa () 28-800 mg-mcg Tablet (20 sources) Start: 12-29-2020 Xue297-Zxgtjxt Fumarate-Fa () 28-800 mg-mcg Tablet Active TAB PO December 29, 2020 3:43pm Start: 12-29-2020 End: 10-07-2023 Iic823-Lyfqhki Fumarate-Fa ( ) 28-800 mg-mcg Tablet Discontinued TAB PO December 28, 2020 11:00pm October 07, 2023 6:06pm Start: 12-29-2020 End: 10-07-2023 Kid638-Vtnfysk Fumarate-Fa ( ) 28-800 mg-mcg Tablet Discontinued TAB PO December 29, 2020 12:00am October 07, 2023 7:06pm Start: 12-29-2020 Ckc685-Jkpwggh Fumarate-Fa () 28-800 mg-mcg Tablet Active TAB PO December 28, 2020 11:00pm Start: 12-29-2020 Xyz442-Cqheruw Fumarate-Fa () 28-800 mg-mcg Tablet Active TAB PO December 29, 2020 12:00am -kqup fum-folic ac-o m3 (One Daily ) (10 sources) Start: 08-25-2024 -dyas fum-folic ac-om3 (One Daily ) Active 1 PKG PO Daily August 25, 2024 12:10pm Start: 05-11-2024 End: 08-25-2024 dmovfk94-omqp fum-folic ac-o m3 (One Daily ) Discontinued PO May 10, 2024 11:00pm August 25, 2024 12:11pm Start: 05-11-2024 wjyxrr59-pyng fum-folic ac-om3 (One Daily ) Active PO May 10, 2024 11:00pm Start: 05-11-2024 ogultx02-zuea fum-folic ac-om3 (One Daily ) Active PO May 11, 2024 12:00am MV-Min-Fe Fum-FA-DHA ( 1 PO) (20 sources) MV-Min- Fe Fum-FA-DHA ( 1 PO) Take 1 each by mouth Daily Active eb644-lmyk-dlgzx acid ( 19) 29 mg iron- 1 mg tablet,chewable (2 sources) id844-mzfq-kkowr acid ( 19) 29 mg iron- 1 mg tablet,chewable Chew 1 tablet and swallow in the morning. Active promethazine hydrochloride 12.5 mg oral tablet (20 sources) Phenothiazine Start: 07-11-2024 End: 10-09-2024 take 1 tablet by mouth every six hours as needed for nausea promethazine (Phenergan) 12.5 MG tablet Indications: Nausea and vomiting during TAKE 1 TABLET BY MOUTH EVERY 6 HOURS NEEDED FOR NAUSEA 30 tablet 3 09/11/2024 Active Start: 12-29-2020 End: 10-07-2023 Promethazine 12.5 [...] 07, 2023 7:06pm Start: 10-15-2019 End: 10-07-2023 Citalopram 20 mg tablet Disc ontinued MG TABLET December 28, 2020 11:00pm October 07, 2023 6:06pm Comment on above: Take 20 mg by [...] source) Vitamin B12 cyanocobalamin/f olic acid (VITAMIN Q37-HAGNZ ACID) 1,000-400 mcg lozg Take by mouth every 24 hours. 0 Active Comment on above: Take by mouth every 24 hours. 3 ml liraglutide 6 mg/ml pen injector (5 sources) GLP-1 Receptor Agonist Start: 05-20-2022 Victoza 18 MG/3ML Week one- 0.6mg, Week two- 1.2mg, Week three on- 1.8mg Subcutaneous Daily for 30 days May, Not-Taking mecobalamin 1 mg chewable tablet (17 sources) Start: 10-07-2023 mecobalamin, vitamin B12, 1,000 [...] Start: 05-26-2023 take 1 capsule by mo [facility] every twenty-four hours Phentermine HCl 37.5 MG 1 capsule Orally Once a day for 30 days May, Active Comment on above: Take 37.5 mg by monj h. 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] 11-25-2023 Chronic Other nutritional; endocrine; and metabolic disorders (20 sources) Weight gain; Translations: [Abnormal weight gain] 03-12-2020 Episodic Other nutritional; endocrine; and metabolic disorders (1 source) Abnormal weight gain Episodic Other nutritional; endocrine; and metabolic disorders (6 sources) Weight increased; Translations: [Abnormal weight gain] 10-07-2023 Episodic Other nutritional; endocrine; and metabolic disorders (1 source) Personal history of other endocrine, nutritional and metabolic disease; Translations: [Personal history of other endocrine, nutritional and metabolic disease] Onset: 4 Episodic Other and delivery including normal (20 [...] of ] 2024 Episodic Residual codes; unclassified (13 sources) Gestation period, 22 weeks; Translations: [22 weeks gestation of ] Onset: 4 07-11-2024 Episodic Residual codes; unclassified (2 sources) Gestation period, 25 weeks; Translations: [25 weeks gestation of ] 07-31-2024 Episodic Residual codes; unclassified (1 source) 20 weeks gestation of ; Translations: [20 weeks gestation of ] Onset: Episodic Residual codes; unclassified (1 source) History [...] unspecified] Onset: 2 Resolved: 2 Chronic Unclassified (11 sources) OB Reminders Onset: 4 06-28-2024 Unclassified [...] Test Name Value Interpretation Reference Range Facility US OB BPP W NON-STRESS on 09-15-2024 [place] [address] Ultrasound Report Signed Patient: TAWNYA HERRING MR#: [id number] : 1995 Acct:[id number] Age/Sex: 29 / F ADM Date: 09/14/24 Loc: [facility] 254-[address]: Brain Way D.O. Ordering Physician: Brain Way D.O. Date of Service: 09/14/24 Procedure(s): US OB BPP w non-stress Accession Number(s): [id number] cc: Darwin Jones FINAL EXPENSE AGENT; Brain Way D.O. [place] [address] Patient Name: TAWNYA HERRING MRN: [id number] date: 1995 Sex: F Assigned Patient Location: US Current Patient Location: Accession/Order Number: [id number] Exam Date: 09/14/2024 19:57 Report Date: 09/15/2024 06:15 At the request of: BRAIN WAY Procedure: US OB BPP w non-stress EXAMINATION: US OB BPP w non-stress HISTORY:EXCESSIVE GROWTH AFFECTING O36.63X1 COMPARISON: Ultrasound OB growth 09/11/2024 TECHNIQUE: Ultrasound biophysical profile was performed in the radiology department. BREATHING MOVEMENTS: 2 GROSS BODY MOVEMENTS: 2 TONE: 2 QUALITATIVE AMNIOTIC FLUID VOLUME: 2 PRESENTATION: CEPHALIC HEART RATE: 144.39 bpm AMNIOTIC FLUID VOLUME: 24.01 cm GESTATIONAL AGE: 32 weeks 1 day US/US OB BPP w non-stress IMPRESSION: 1. Total biophysical profile score: 8 Electronically authenticated by: IRENE HARRINGTON Date: 09/15/2024 06:15 Dictated By: Irene Harrington M.D. Signed By: 09/15/24616 DD/ 4 TD/TT: Sales Demonstrator: [facility] Radiology, Radiologi MD diane - 09/15/2024 [place] [address] Ultrasound Report Signed Patient: TAWNYA HERRING MR#: [id number] : 1995 Acct:[id number] Age/Sex: 29 / F ADM Date: 09/14/24 Loc: [facility] 254-[address]: Brain Way D.O. Ordering Physician: Brain Way D.O. Date of Service: 09/14/24 Procedure(s): US OB BPP w non-stress Accession Number(s): [id number] cc: Darwin Jones FINAL EXPENSE AGENT; Brain Way D.O. [place] [address] Patient Name: TAWNYA HERRING MRN: [facility]:[id number] date: 1995 Sex: F Assigned Patient Location: US Current Patient Location: Accession/Order Number: [id number] Exam Date: 09/14/2024 19:57 Report Date: 09/15/2024 06:15 At the request of: BRAIN WAY Procedure: US OB BPP w non-stress EXAMINATION: US OB BPP w non-stress HISTORY:EXCESSIVE GROWTH AFFECTING O36.63X1 COMPARISON: Ultrasound OB growth 09/11/2024 TECHNIQUE: Ultrasound biophysical profile was performed in the radiology department. BREATHING MOVEMENTS: 2 GROSS BODY MOVEMENTS: 2 TONE: 2 QUALITATIVE AMNIOTIC FLUID VOLUME: 2 PRESENTATION: CEPHALIC HEART RATE: 144.39 bpm AMNIOTIC FLUID VOLUME: 24.01 cm GESTATIONAL AGE: 32 weeks 1 day US/US OB BPP w non-stress IMPRESSION: 1. Total biophysical profile score: 8 Electronically authenticated by: IRENE HARRINGTON Date: 09/15/2024 06:15 Dictated By: Irene Harrington M.D. Signed By: 09/15/24616 DD/ 4 TD/TT: Sales Demonstrator: [facility] Radiology Study observation (narrative) [facility] US OB BPP W NON-STRESS Ordered By: Radiologist Radiology on 09-15-2024 [employer] Work Phone: ECH echo transthoracicon [facility] echo transthoracic [facility] [place] [address] Echocardiogram Signed Patient: Tawnya Shay MR#: [id number] : 1995 Acct:[id number] Age/Sex: 29 / F ADM Date: 09/14/24 Loc: Room: Type: [facility] Attending Dr: Mary Ellen Bruce MD Ordering Provider: Mary Ellen Bruce MD Date of Service: 09/14/24 ECH/ECH echo transthoracic: I51.7 - Cardiomegaly Copies to: Mary Ellen Bruce MD Weight: 245 lb Performed By: BRIGIDO Gupta BSA: 2.2 m2 BP: 125/78 mmHg HR: 97 Reason For Study: I51.7 - Cardiomegaly History: Covid, 32 Weeks Interpretation Summary Ejection Fraction = 55-60%. The left ventricular wall motion is normal. A variety of Doppler measurements indicate normal left ventricular diastolic function. Mild concentric left ventricular hypertrophy. There is trace tricuspid regurgitation. There is no comparison study available. Procedure/Quality: A two-dimensional transthoracic echocardiogram with color flow and Doppler was performed. The study was technically good in quality. Left Ventricle: The left ventricular size is normal. Mild concentric left ventricular hypertrophy. Ejection Fraction = 55-60%. A variety of Doppler measurements indicate normal left ventricular diastolic function. The left ventricular wall motion is normal. Left Atrium: The left atrium appears normal in size. Right Atrium: The right atrium appears normal in size. Right Ventricle: The right ventricle is normal in size and function. Aortic Valve: The aortic valve is normal in structure. No hemodynamically significant valvular aortic stenosis. No aortic regurgitation is present. Mitral Valve: The mitral valve is normal in structure. No significant mitral valve stenosis. There is no mitral regurgitation noted. Tricuspid Valve: The tricuspid valve is normal in structure. There is trace tricuspid regurgitation. Pulmonic Valve: The pulmonic valve is not well visualized. No significant pulmonic regurgitation. Arteries: The aortic root is normal size. Pericardium/Pleura: No pericardial effusion seen. IVC/Hepatic Veins: The inferior vena cava is normal in size, with a normal collapsibility index. Measurements with Normals IVSd: 1.5 cm (0.7-1.1 cm)LVIDd: 4.0 cm (3.7-5.4 cm) LVPWd: 1.2 cm (0.7-1.1 cm)LVIDs: 2.3 cm (2.3-3.6 cm) LA dimension: 3.6 cm (2.3-4.0 cm)Ao root diam: 3.0 cm(2.0-3.6 cm) asc Aorta Diam: 2.9 cm(2.1-3.4cm) Doppler with Normals RVSP(TR): 27.8 mmHg (18-35mmHg) LV V1 max: 130.4 cm/sec (0.7-1.7m/s)MV E max anderson: 106.0 cm/sec(0.8-1.3m/s) MV A max anderson: 74.1 cm/sec(0.0-0.0m/s) MV E/A: 1.4 (<1.5) MMode/2D Measurements Calculations RVDd: 3.0 cm FS: 42.1 % Ao root area: 6.8 cm2 LVLd ap4: 7.1 cm TAPSE: 2.8 cm EDV(Teich): EDV(MOD-sp4): RV S Anderson: 70.9 ml 56.8 ml 20.7 cm/sec ESV(Teich): LVLs ap4: 5.3 cm 18.6 ml ESV(MOD-sp4): EF(Teich): 73.7 % 15.0 ml EF(MOD-sp4): 73.6 % __ SV(MOD-sp4): LAV(MOD-sp4): LA A2 area: 17.3 cm2 41.8 ml 37.1 ml LAV(MOD-sp2): LA A4 area: 14.6 cm2 48.9 ml LA length (vol): 4.6 cm LA vol: 46.2 ml LA vol index: 21.0 ml/m2 Doppler Measurements Calculations MV dec time: MV V2 max: E/E' lat: 8.9 MV P1/2t max anderson: 0.27 sec 138.8 cm/sec E/E' med: 10.9 141.9 cm/sec MV max PG: MV P1/2t: 84.9 msec 20.0 mmHg MV V2 mean: MVA(P1/2t): 2.6 cm2 82.9 cm/sec MV dec slope: MV mean P.8 cm/sec2 3.2 mmHg MV V2 VTI: 34.8 cm __ Ao V2 max: LV V1 max PG: MR max anderson: TV max P.0 mmHg 159.3 cm/sec 6.8 mmHg 221.3 cm/sec Ao max PG: LV V1 mean PG: MR max P.1 mmHg 3.3 mmHg 19.7 mmHg Ao mean PG: LV V1 mean: 6.0 mmHg 82.6 cm/sec Ao V2 mean: LV V1 VTI: 24.6 cm 112.5 cm/sec Ao V2 VTI: 30.0 cm __ TR max anderson: 238.9 cm/sec TR max P.8 mmHg RAP systole: 5.0 mmHg Transcribed By: SARA Performed At: 09/14/24 0955 Signed By: Mary Ellen Bruce MD 09/14/24 1116 Normal [facility] Physician [facility] US OB GROWTHon 09-11-[address] [address] Ultrasound Report Signed Patient: TAWNYA HERRING MR#: [id number] : 1995 Acct:[id number] Age/Sex: 29 / F ADM Date: 09/11/24 Loc: US Attending Dr: Mya Finch Ordering Physician: Mya Finch Date of Service: 09/11/24 Procedure(s): US OB growth Accession Number(s): [id number] cc: Mya Finch; Darwin Jones NP [address] [address] Patient Name: TAWNYA HERRING MRN: [id number] date: 1995 Sex: F Assigned Patient Location: US Current Patient Location: US Accession/Order Number: [id number] Exam Date: 09/11/2024 10:00 Report Date: 09/11/2024 [...] Signed By: 09/11/24 1111 DD/ 1108 TD/TT: Sales Demonstrator: [facility] Radiology, Radiolognoel contreras MD - 09/11/2024 [place] [address] Ultrasound Report Signed Patient: TAWNYA HERRING MR#: [id number] : 1995 Acct:[id number] Age/Sex: 29 / F ADM Date: 09/11/24 Loc: US Attending Dr: Mya Finch Ordering Physician: Mya Finch Date of Service: 09/11/24 Procedure(s): US OB growth Accession Number(s): [id number] cc: Mya Finch; Darwin Jones NP [place] [address] Patient Name: TAWNYA HERRING MRN: [facility]:[id number] date: 1995 Sex: F Assigned Patient Location: US Current Patient Location: US Accession/Order Number: [id number] Exam Date: 09/11/2024 10:00 Report Date: 09/11/2024 [...] Signed By: 09/11/24 1111 DD/ 1108 TD/TT: Sales Demonstrator: [facility] Radiology Study observation (narrative) [facility] US OB GROWTHOrdered By: Halima ologleighton Radiology on 09-11-2024 [facility] Work Phone: R Urineon 09-07-2024 Bacteria identified Cx Nom (U) [...] Locations R1: This test was performed at: [facility], [address] [place] [address], [address]- , [place], [facility] Comment on above: Performed By: #### [id number] #### [facility] [address] [place] [id number] Urinalysis macro (dipstick) panel (U)on 09-07-2024 Bilirubin, UA Negative Negative - 4(70) +++ mg/dL [facility] Blood, UA Negative Negative - 50 Dain/mcL [facility] Clarity, UA Clear [facility] Color, UA Yellow [facility] Glucose, UA Negative Negative - 1999(110) ++++ mg/dL [facility] Interpretation and review of laboratory results Normal [facility] Ketones, UA Negative Negative - 160(16) ++++ mg/dL [facility] Leukocytes, UA Negative Negative - 500+++ Chaparrita/mcL [facility] Nitrite, UA Negative Negative - Positive [facility] pH, UA 8 5 - 9 [facility] Protein, UA Negative Negative - 1999(20) ++++ mg/dL [facility] Spec Grav, UA 1.015 1 - 1.03 [facility] Urobilinogen, UA 1.0 0.2 - 12 mg/dL [facility] ED Clinical Summaryon 2024 ED Clinical Summary ED Clinical Summary [place] [id number] ED Clinical Summary Person Information Name: TAWNYA HERRING [facility] Age: 29 Years : 1995 Sex: Female Language: Lao PCP: DARWIN JONES CNP Marital Status: Single Phone: [phone] Visit Id: Visit Reason: Headache; HEADACHE, FALL [...] 09/06/2024 16:26:55 09/06/2024 16:26:55 09/06/2024 16:26:55 ADDRESS: [address] [place] [phone] PHYS DOC NOTES: MEDICAL INFORMATION: Prescriptions Given: [...] day. PATIENT EDUCATION INFORMATION: Instructions: Concussion, Adult, Uiml-fd-Isqv Follow up: With: Address: When: DARWIN JONES [address] [place] [address] [place] [address] [phone] Business (1) In 3 days 09/09/2024 Comments: Call to schedule a follow-up appointment with your primary care provider. Use Zofran as needed for nausea/vomiting. Return to the ED with any new or worsening symptoms. DIAGNOSIS: JEFFERSON (headache) Normal [facility] ED Note-Physicianon 09-06-19 ED Note-Physician ED Note-Physician Basic Information Time Seen: Nay BECKHAM, Lashon MagdaEfren 09/06/2024 14:32 Chief Complaint Pt presents to [...] headache. She denies the use of any tzsf-gpq-kgeclxz medications for this. Patient denies any neck [...] [] Head CT not ordered by emergency health care / medical job titles [] Head CT ordered for reasons other than trauma [] Patient is 18 or older, presenting with minor blunt head trauma. Head CT (including cosigned orders) was ordered by an emergency health care / medical job titles for trauma because (select one or more):[SATISFIES MIPS PERFORMANCE]Reasons: [] Patient is 65 or older [] Patient GCS < 15 [] Patient has focal neurologic deficit [] Patient has severe headache [] Patient is vomiting [] Severe/dangerous mechanism of injury was identified(select one or more): []MVA with: patient ejection, of another passenger, rollover, speed > 40mph, airbag deployment, laundry route driver or passenger on ATV or motorcycle [...] cosigned orders) was ordered by an emergency health care / medical job titles for trauma, no indication specified.[DOES NOT SATISFY MIPS PERFORMANCE] Medical Decision Making Patient is a 29-year-old female with a history of anxiety who presents to the ED 30 weeks with complaints of a headache following a syncope episode from a seated position yesterday. Patient is hemodynamically st (more content not included)... Normal [facility] Comment on above: Result Comment: Elec tronically Signed By: Lashon Tee PA-C\.br\Date and Time Signed: 09/06/24 16:20 EST\.br\Electronically Co-Signed By: Lashon Tee PA-C\.br\Date and Time Co-Signed: 09/06/24 16:21 EST\.br\Electronically Co-Signed By: Flash Franco DO\.br\Date and Time Co-Signed: 09/06/24 19:47 EST ED Patient Summaryon 025 ED Patient Summary ED Patient Summary [place] [id number] Patient Discharge Instructions Person Information Name: TAWNYA HERRING Age: 29 Years Arrival Date: 09/06/2024 13:57:18 Discharge Diagnosis: JEFFERSON (headache) Primary Care Physician: DARWIN JONES CNP Provider Information Primary Provider: Flash Franco DO Advanced Technical Assistance Consultant:Lashon Tee PA-C The exam and treatment you received in the Emergency Department were for an urgent problem and are not intended as complete care. It is important that you follow up with a doctor, nurse practitioner, or physician???s pediatric physician assistant for ongoing care. If your symptoms become worse or you do not improve as expected and you are unable to reach your usual health care provider, you should return to the Emergency Department. We are available 24 hours a day. MONAMIMI TAWNYA Romie has been given the following list of patient education materials, prescriptions and follow-up instructions: Follow-up Instructions: With: Address: When: DARWIN JONES [address] [place] [address] [phone] Business (1) In 3 days 09/09/2024 Comments: [...] participating provider. Patient Education Materials: Concussion, Adult, Zyum-tj-Avim A MESSAGE TO ALL PATIENTS REGARDING OPIOIDS PRESCRIPTION OPIOIDS: WHAT YOU NEED TO KNOW Prescription opioids can be used to help relieve xfgixxmb-vr-bsbiwg pain and are often prescribed following a [...] (www.fda.gov/Drugs/Resourc esForYou). (more content not included)... Normal [facility] BLOOD BANKOrdered By: Estefany Morillo on 09-05-2024 Fibronectin. Ql (Vag fld) Negative 1 (09/05/24 5:47 AM) Normal [facility] [place] [facility]ero Comment on above: Interpretive [...] Anion gap [Moles/Vol] 16 mmol/L Normal 6-16 [facility] Comment on above: Performed By: #### 2 [id number] #### [facility] [address] [place] [address] Calcium [Mass/Vol] 8.5 mg/dL Low 8.9-11.1 [facility] Comment on above: Performed By: #### 2 [id number] #### [facility] [address] [place] [address] Chloride [Moles/Vol] 108 mmol/L Normal 101-111 [facility] Comment on above: Performed By: #### 2 [id number] #### [facility] [address] [place] [address] CO2 [Moles/Vol] 17 mmol/L Low 21-31 [facility] Comment on above: Performed By: #### 2 [id number] #### [facility] [address] [place] [address] Creatinine [Mass/Vol] 0.4 mg/dL Low 0.5-1.3 [facility] Comment on above: Performed By: #### 2 [id number] #### [facility] [address] [place] [address] Glucose [Mass/Vol] 103 mg/dL Normal 55-199 [facility] Comment on above: Performed By: #### 2 [id number] #### [facility] [address] [place] [address] Potassium [Moles/Vol] 3.6 mmol/L Normal 3.5-5.3 [facility] Comment on above: Performed By: #### 2 [id number] #### [facility] [address] [place] [address] Sodium [Moles/Vol] 137 mmol/L Normal 135-145 [facility] Comment on above: Performed By: #### 2 [id number] #### [facility] [address] [place] [address] Urea nitrogen [Mass/Vol] 9 mg/dL Normal 5-21 [facility] Comment on above: Performed By: #### 2 [id number] #### [facility] [address] [place] [address] Urea nitrogen/Creatinine [Mass ratio] 22 No Units High 10-20 [facility] Comment on above: Performed By: #### 2 [id number] #### [facility] [address] [place] [address] CBC w/ Auto Diffon 5 Basophils/100 WBC (Bld) 0.4 % Normal 0.0-2.0 [facility] Comment on above: Performed By: #### 2 [id number] #### [facility] [address] [place] [address] Basophils/Leukocytes Auto (Bld) [Pure # fraction] 0.1 E9/L Normal 0.0-0.2 [facility] Comment on above: Performed By: #### 2 [id number] #### [facility] [address] [place] [address] Eosinophils (Bld) [#/Vol] 0.0 E9/L Normal 0.0-0.5 [facility] Comment on above: Performed By: #### 2 [id number] #### [facility] [address] [place] [address] Eosinophils/100 WBC (Bld) 0.3 % Normal 0.0-8.0 [facility] Comment on above: Performed By: #### 2 [id number] #### [facility] [address] [place] [address] Erythrocyte distribution width (RBC) [Ratio] 12.7 % Normal 10.9-14.2 [facility] Comment on above: Performed By: #### 2 [id number] #### [facility] [address] [place] [address] Hematocrit (Bld) [Volume fraction] 37.4 % Normal 34.0-46.0 [facility] Comment on above: Performed By: #### 2 [id number] #### [facility] [address] [place] [address] Hemoglobin (Bld) [Mass/Vol] 13.2 g/dL Normal 12.0-16.0 [facility] Comment on above: Performed By: #### 2 [id number] #### [facility] [address] [place] [address] Lymphocytes (Bld) [#/Vol] 1.1 E9/L Normal 1.0-4.0 [facility] Comment on above: Performed By: #### 2 [id number] #### [facility] [address] [place] [address] Lymphocytes/100 WBC (Bld) 7.0 % Low 14.0-50.0 [facility] Comment on above: Performed By: #### 2 [id number] #### [facility] [address] [place] [address] MCH (RBC) [Entitic mass] 33.0 pg Normal 27.0-34.0 [facility] Comment on above: Performed By: #### 2 [id number] #### [facility] [address] [place] [address] MCHC (RBC) [Mass/Vol] 35.4 g/dL Normal 31.4-36.0 [facility] Comment on above: Performed By: #### 2 [id number] #### [facility] [address] [place] [address] MCV (RBC) [Entitic vol] 93.3 fL Normal 80.0-100.0 [facility] Comment on above: Performed By: #### 2 [id number] #### [facility] [address] [place] [address] Monocytes (Bld) [#/Vol] 0.7 E9/L Normal 0.2-1.0 [facility] Comment on above: Performed By: #### 2 [id number] #### [facility] [address] [place] [address] Neutrophils (Bld) [#/Vol] 13.7 E9/L High 2.0-7.5 [facility] Comment on above: Performed By: #### 2 [id number] #### [facility] [address] [place] [address] Neutrophils/100 WBC (Bld) 87.6 % High 36.0-75.0 [facility] Comment on above: Performed By: #### 2 [id number] #### [facility] [address] [place] [address] Platelet 324.0 E9/L Normal 150.0-500. 0 [facility] Comment on above: Performed By: #### 2 [id number] #### [facility] [address] [place] [address] Platelet mean volume (Bld) [Entitic vol] 8.3 fL Normal 6.4-10.8 [facility] Comment on above: Performed By: #### 2 [id number] #### [facility] [address] [place] [address] RBC (Bld) [#/Vol] 4.0 E12/L Low 4.3-5.9 [facility] Comment on above: Performed By: #### 2 [id number] #### [facility] [address] [place] [address] WBC corrected for nucl RBC Auto (Bld) [#/Vol] 15.6 E9/L High 4.0-11.0 [facility] Comment on above: Performed By: #### 2 [id number] #### [facility] [address] [place] [address] CHEMISTRYOrdered By: SYSTEM SYSTEM on 09-05-2024 Albumin [...] Sensitivity Troponin I Instructions For Use, Nathen Jerome, March 2018) Urea nitrogen [Mass/Vol] 9 mg/dL Normal 5 - 21 mg/dL Remisol Chem Urea nitrogen/Creatinine [Mass ratio] 22 mg/mg High 10 - 20 Remisol Chem ED Clinical Summaryon 2024 ED Clinical Summary ED Clinical Summary [address] [address] ED Clinical Summary Person Information Name: TAWNYA HERRING Deysi/[facility] Age: 29 Years : 1995 Sex: Female Language: Lao PCP: DARWIN JONES CNP Marital Status: Single Phone: [phone] Visit Id: Visit Reason: Abdominal pain - ; Vomiting - ; Syncope/Near syncope; PASSED OUT HIT HEAD,NAUSEA DIARRHEA VOMITING 30 WKS PREG Speciality: Acuity: 2 Enc Type: Emergency Med Service: Emergency Arrival: 09/05/2024 03:02:46 Discharge: LOS: 000 01:33 Checkin: 09/05/2024 03:02:46 Checkout: 09/05/2024 04:35:45 Dispo Type: Admitted as IP to this [facility] EVENTS: Event Name Event Status Request Date/Time [...] 09/05/2024 04:35:45 09/05/2024 04:35:45 09/05/2024 04:35:45 ADDRESS: [address] [place] [phone] PHYS DOC NOTES: MEDICAL INFORMATION: Prescriptions Given: Medications to Continue with No Changes Other Medications citalopram (CeleXA 20 mg Tab) 1 Tablets By Mouth every day. PATIENT EDUCATION INFORMATION: Instructions: Syncope, Adult, Cyip-fm-Uvdl; Nausea and Vomiting, Adult, Drbn-de-Gibi; Diarrhea, Adult, Uzis-oj-Dhzh; Dehydration, Adult, Uapg-jx-Mtxj Follow up: With: Address: When: [facility] [address] [place] [phone] Business (1) In 3 days 09/08/2024 Comments: Please follow-up with Dr. Way for further evaluation management. Please return to the ED for any new or worsening symptoms. DIAGNOSIS: Dehydration; Diarrhea, unspecified; Nausea, vomiting, and diarrhea; Syncope Normal [facility] ED Note-Nursingon 09-05-2024 ED Note-Nursing ED Note-Nursing OB at bedside Normal [facility] ED Note-Physicianon 09-05-19 ED Note-Physician ED [...] she started having nausea vomiting diarrhea about 2199 on Wednesday started having abdominal cramping shortly [...] and Complexity of Problems Differential Diagnosis: [] [facility] Data External documents reviewed: [] My [...] Dayna 50 mL [F] 50 mL + [id number] [F] 25 mg, IV Piggyback Disposition Plan [...] Use, 03/12/2020 (more content not included)... Normal [facility] Comment on above: Result Comment: Elec tronically Signed By: Gabriel Curtis DO\.br\Date and Time Signed: 09/05/24 04:22 EST ED Patient Summaryon 025 ED Patient Summary ED Patient Summary [address] [address] Patient Discharge Instructions Person Information Name: TAWNYA HERRING Age: 29 Years Arrival Date: 09/05/2024 03:02:46 Discharge Diagnosis: Dehydration; Diarrhea, unspecified; Nausea, vomiting, and diarrhea; Syncope Primary Care Physician: DARWIN JONES CNP Provider Information Primary Provider: Gabriel Curtis DO Advanced Technical Assistance Consultant:None The exam and treatment you received in the Emergency Department were for an urgent problem and are not intended as complete care. It is important that you follow up with a doctor, nurse practitioner, or physician???s pediatric physician assistant for ongoing care. If your symptoms [...] Instructions: With: Address: When: DARWIN JONES [address] [place] [phone] [email or web address] (1) In 3 days 09/08/2024 Comments: Please follow-up with Dr. Way for further evaluation management. Please return to the ED for any new or worsening symptoms. In the event that this physician does not participate in your insurance network, please consult with your insurance company to find a nearby participating provider. Patient Education Materials: Syncope, Adult, Tqqg-iy-Zuvv; Nausea and Vomiting, Adult, Mcps-np-Yrax; Diarrhea, Adult, Kose-wi-Vimd; Dehydration, Adult, Dfba-xb-Onzx A MESSAGE TO ALL PATIENTS REGARDING OPIOIDS PRESCRIPTION OPIOIDS: WHAT YOU NEED TO KNOW Prescription opioids can be used to help relieve yrbajcxt-fl-yahrts pain and are often prescribed following a [...] down t (more content not included)... Normal [facility] Extra Blueon 09-05-2024 Tube Collected Plasma Yes Invalid Interpretation Code [facility] Comment on above: Performed By: #### 1 [id number] #### [facility] [address] [place] [address] FFNon 09-05-2024 Fibronectin. Ql (Vag fld) Negative Normal [facility] Comment on above: Result Comment: In S ap , a positive result is associated with [...] the antibody-antigen reaction. Performed By: #### 1 [id number] #### [facility] [address] [place] [address] HEMATOLOGYOrdered By: SYSTEM SYSTEM on 09-05-2024 Basophils/100 [...] 09-05-2024 Albumin [Mass/Vol] 3.8 g/dL Normal 3.3-5.0 [facility] Comment on above: Performed By: #### 2 [id number] #### [facility] [address] [place] [address] Albumin/Globulin (S) [Mass conc ratio] 1.5 Normal 1.1-2.2 [facility] Comment on above: Performed By: #### 2 [id number] #### [facility] [address] [place] [address] ALP [Catalytic activity/Vol] 80 Int._Unit/L Normal 21-98 [facility] Comment on above: Performed By: #### 2 [id number] #### [facility] [address] [place] [address] ALT No additional P-5'-P [Catalytic activity/Vol] 20 Int._Unit/L Normal 6-46 [facility] Comment on above: Performed By: #### 2 [id number] #### [facility] [address] [place] [address] AST [Catalytic activity/Vol] 15 Int._Unit/L Normal 5-43 [facility] Comment on above: Performed By: #### 2 [id number] #### [facility] [address] [place] [address] Bilirubin [Mass/Vol] 0.6 mg/dL Normal 0.0-1.1 [facility] Comment on above: Performed By: #### 2 [id number] #### [facility] [address] [place] [address] Bilirubin.direct [Mass/Vol] 0.1 mg/dL Normal 0.0-0.4 [facility] Comment on above: Performed By: #### 2 [id number] #### [facility] [address] [place] [address] Bilirubin.indirect [Mass or moles/Vol] 0.5 mg/dL Normal 0.1-0.9 [facility] Comment on above: Performed By: #### 2 [id number] #### [facility] [address] [place] [address] Globulin (S) [Mass/Vol] 2.6 g/dL Normal 1.4-4.0 [facility] Comment on above: Performed By: #### 2 [id number] #### [facility] [address] [place] [address] Protein [Mass/Vol] 6.4 g/dL Normal 6.0-7.8 [facility] Comment on above: Performed By: #### 2 [id number] #### [facility] [address] [place] [address] Influenza A&B Agon 5 Influenzae A Ag Negative Normal Negative [facility] Comment on above: Performed By: #### 1 [id number] #### [facility] [address] [place] [address] Influenzae B Ag Negative Normal Negative [facility] Comment on above: Result Comment: Test sensitivity and specificity vary for age group, specimen type, antigen types, and prevalence of disease. Test results must be evaluated in conjunction with other clinical data available to the physician. Individuals who received nasally administered Influenza A vaccine may have positive test results up to 3 days after vaccination. Performed By: #### 1 [id number] #### [facility] [address] [place] [address] Inpatient Clinical Summaryon 09-05-2024 Inpatient Clinical Summary Inpatient Clinical Summary [address] [address] Clinical Summary Person Information Name: TAWNYA HERRING Deysi/[facility] Age: 29 Years : 1995 Sex: Female PCP: DARWIN JONES CNP Marital Status: Single Phone: [phone] Race: White Ethnicity: Non- or Language: Lao Visit Id: Visit Reason: Abdominal pain - ; Vomiting - ; Syncope/Near syncope; PASSED OUT HIT HEAD,NAUSEA DIARRHEA VOMITING 30 WKS PREG Speciality: Acuity: Obs Enc Type: Observation Med Service: Obstetrics Arrival: 09/05/2024 03:02:46 Discharge: 09/05/2024 15:50:00 Dispo Type: Home ([facility]) Address: [address] [place] [phone] Provider Notes: Diagnosis: Dehydration; Diarrhea, unspecified; Nausea, [...] range between ( 80.0 and 100.0 ) Deuel Auto: 4.7 % -- Normal range between ( 4.0 and 14.0 ) MPV: 8.3 fL -- Normal range between ( 6.4 and 10.8 ) Neutro Auto: 87.6 % -- Normal range between ( 36.0 and 75.0 ) Platelet: 324.0 E9/L -- Normal range between ( 150.0 and 500.0 ) WBC: 15.6 E9/L -- Normal range between ( 4.0 and 11.0 ) Deuel Absolute: 0.7 E9/L -- Normal range between [...] 38.19 kg/m2 (more content not included)... Normal [facility] Inpatient Patient Summaryon 09-05-2024 Inpatient Patient Summary Inpatient Patient Summary [address] [address] Patient Discharge Instructions PERSON INFORMATION Name: TAWNYA HERRING Date of : 1995 Current Date: 09/05/2024 16:15:55 PHYSICIANS Admitting Physician: Rogelio Nath MD Primary Care Physician: DARWIN JONES CNP PCP Phone Number: [phone] Comment: Discharge Diagnosis: Dehydration; Diarrhea, unspecified; Nausea, [...] Follow up: With: Address: When: [address] [facility], [address] [facility] [place] [address] Business (1) In 2 days 09/07/2024 Comments: 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 Way for further evaluation management. Please return to the ED for any new or worsening symptoms. In the event that this physician does not participate in your insurance network, please consult with your insurance company to find a nearby participating provider. Comment: NEVAEH Patel ASHLEY M, have received the attached patient [...] until you feel better. Medicines ??? Take ggbo-hhb-zhfodkb and prescription medicines only as told by [...] ? Flexing (more content not included)... Normal [facility] Lipase Levelon 09-05-2024 Lipase [Catalytic activity/Vol] 18 U/L Normal 13-58 [facility] Comment on above: Performed By: #### 2 [id number] #### [facility] [address] [place] [address] MICRO OTHER TESTSOrdered By: Barrington Maxwell on 09-05-2024 Influenzae A Ag Negative (09/05/24 3:34 AM) Normal Negative [facility] [place] Influenzae B Ag Negative 3 (09/05/24 3:34 AM) Normal Negative [facility] [place] Comment on above: Interpretive [...] Troponin HS 2.70 pg/mL Low 10.10-27.1 0 [facility] Comment on above: Result Comment: The 95% CI (Confidence Interval) PPV (Positive Predictive Value) for myocardial infarction in females is 38 pg/mL, in males 51 pg/mL. The results should be used in conjunction with clinical conditions of myocardial infarction. (Access High Sensitivity Troponin I Instructions For Use, [employer], March 2018) Performed By: #### 1 [id number] #### [facility] [address] [place] [address] UA with Cult Rflxon 09-05-19 25 Bacteria Auto Ql (U) Trace Normal Trace Fish [facility] Comment on above: Performed By: #### 4 [id number] #### [facility] [address] [place] [address] Bilirubin Ql (U) 1+ mg/dL Abnormal Negative [facility] Comment on above: Performed By: #### 4 [id number] #### [facility] [address] [place] [address] Clarity (U) Turbid Abnormal Clear [facility] Comment on above: Performed By: #### 4 [id number] #### [facility] [address] [place] [address] Color (U) Dark-Yellow Abnormal Yellow [facility] Comment on above: Result Comment: Micr oscopic readings are only performed on those samples that meet specific criteria set forth by [facility]. Performed By: #### 4 [id number] #### [facility] [address] [place] [address] Epithelial cells.squamous Auto (Urine sed) [#/Area] 5-8 Invalid Interpretation Code [facility] Comment on above: Performed By: #### 4 [id number] #### [facility] [address] [place] [address] Glucose Ql (U) Trace Abnormal Negative [facility] Comment on above: Performed By: #### 4 [id number] #### [facility] [address] [place] [address] Hemoglobin Auto test strip (U) [Mass/Vol] Negative Normal Negative [facility] Comment on above: Performed By: #### 4 [id number] #### [facility] [address] [place] [address] Ketones Auto test strip Ql (U) 1+ mg/dL Abnormal Negative [facility] Comment on above: Performed By: #### 4 [id number] #### [facility] [address] [place] [address] Leukocyte esterase Auto test strip Ql (U) 25 Chaparrita/uL Normal Negative [facility] Comment on above: Performed By: #### 4 [id number] #### [facility] [address] [place] [address] Mucus Auto Ql (U) 4+ [id number] Abnormal Negative [facility] Comment on above: Performed By: #### 4 [id number] #### [facility] [address] [place] [address] Nitrite Auto test strip Ql (U) 1+ mg/dL Abnormal Negative [facility] Comment on above: Performed By: #### 4 [id number] #### [facility] [address] [place] [address] pH (U) 5.5 [pH] Invalid Interpretation Code 5.0-9.0 [facility] Comment on above: Performed By: #### 4 [id number] #### [facility] [address] [place] [address] Protein Ql (U) 1+ mg/dL Abnormal Negative [facility] Comment on above: Performed By: #### 4 [id number] #### [facility] [address] [place] [address] RBC Ql (U) 0-3 Normal 0-3 [facility] Comment on above: Performed By: #### 4 [id number] #### [facility] [address] [place] [address] Specific gravity (U) [Rel density] 1.029 Invalid Interpretation Code 1.005-1.03 0 [facility] Comment on above: Performed By: #### 4 [id number] #### [facility] [address] [place] [address] Urobilinogen (U) [Mass/Vol] 2 mg/dL Abnormal Negative [facility] Comment on above: Performed By: #### 4 [id number] #### [facility] [address] [place] [id number] WBC Auto (Urine sed) [#/Area] 0-5 Normal 0-5 [facility] Comment on above: Performed By: #### [id number] #### [facility] [address] [place] [id number] Type of Urine collection method Clean Catch Normal [facility] Comment on above: Performed By: #### 4 [id number] #### [facility] [address] [place] [address] URINALYSISOrdered By: SYSTEM SYSTEM on 09-05-2024 Bacteria Auto Ql (U) Trace /HPF Normal Trace/HPF [facility] UA Auto SS Bilirubin Ql (U) 1+ mg/dL Invalid Interpretation Code Negativemg /dL [facility] UA Auto SS Clarity (U) Turbid *ABN* (09/05/24 5:25 AM) Invalid Interpretation Code Clear [facility] UA Auto SS Color (U) Dark-Yellow 2 *ABN* (09/05/24 5:25 AM) Invalid Interpretation Code Yellow [facility] UA Auto SS Comment on above: Interpretive Data: M icroscopic readings are only performed on those samples that meet specific criteria set forth by [facility]. Epithelial cells.squamous Auto (Urine sed) [#/Area] 5-8 graded/HPF Invalid Interpretation Code [facility] UA Auto SS Glucose Ql (U) Trace mg/dL Invalid Interpretation Code Negativemg /dL [facility] UA Auto SS Hemoglobin Auto test strip (U) [Mass/Vol] Negative Normal Negativemg /dL [facility] UA Auto SS Ketones Auto test strip Ql (U) 1+ mg/dL Invalid Interpretation Code Negativemg /dL [facility] UA Auto SS Leukocyte esterase Auto test strip Ql (U) 25 Chaparrita/uL Chaparrita/uL Normal NegativeLe u/uL [facility] UA Auto SS Mucus Auto Ql (U) 4+ graded/LPF Invalid Interpretation Code Negativegr aded/LPF [facility] UA Auto SS Nitrite Auto test strip Ql (U) 1+ mg/dL Invalid Interpretation Code Negativemg /dL [facility] UA Auto SS pH (U) 5.5 *NA* (09/05/24 5:25 AM) Invalid Interpretation Code 5.0 - 9.0 [facility] [place] [place] UA Auto SS Protein Ql (U) 1+ mg/dL Invalid Interpretation Code Negativemg /dL [facility] UA Auto SS RBC Ql (U) 0-3 graded/HPF Normal 0-3graded/ HPF [facility] UA Auto SS Specific gravity (U) [Rel density] 1.029 *NA* (09/05/24 5:25 AM) Invalid Interpretation Code 1.005 - 1.030 [facility] UA Auto SS Urobilinogen (U) [Mass/Vol] 2 mg/dL Invalid Interpretation Code Negativemg /dL [facility] [place] UA Auto SS WBC Auto (Urine sed) [#/Area] 0-5 graded/HPF Normal 0-5graded/ HPF [facility] UA Auto SS URINALYSISOrdered By: Rica Islas on 09-05-2024 UA Spec Desc Clean Catch (09/05/24 5:25 AM) Normal [facility] [place] UA Auto SS eGFRon 09-05-2024 eGFR 138 mL/min/1.73 m2 Normal >=59 [facility] Comment on above: Performed By: #### 1 [id number] #### [facility] [address] [place] [address] ALL CBC WITH AUTO DIFFon BASOPHILS ABSOLUTE AUTO 0 [facility] Basophils/100 WBC (Bld) 0.2 % 0.2 - 2.0 % [facility] Eosinophils/100 WBC (Bld) 0.8 % Low 0.9 - 7.0 % [facility] Erythrocyte distribution width (RBC) [Ratio] 12.1 % 11.0 - 15.0 % [facility] Hematocrit (Bld) [Volume fraction] 33.9 % Low 36.0 - 48.0 % [facility] Hemoglobin (Bld) [Mass/Vol] 11.6 g/dL Low 12.0 - 16.0 g/dL [facility] IMMATURE GRANULOCYTES ABS AUTO 0.03 [facility] Immature granulocytes/100 WBC (Bld) 0.3 % 0.0 - 0.5 % [facility] Interpretation and review of laboratory results Abnormal [facility] LYMPHOCYTES ABSOLUTE AUTO 1.8 [facility] Lymphocytes/100 WBC (Bld) 19.8 % Low 20.5 - 60.0 % [facility] MCH (RBC) [Entitic mass] 32.9 pg 26.7 - 34.0 pg [facility] MCHC (RBC) [Mass/Vol] 34.2 g/dL 29.9 - 35.2 g/dL [facility] MCV (RBC) [Entitic vol] 96 fL 81.0 - 99.0 fL [facility] MONOCYTES ABSOLUTE AUTO 0.5 [facility] Monocytes/100 WBC (Bld) 5.4 % 1.7 - 12.0 % [facility] NEUTROPHILS ABSOLUTE AUTO 6.6 High [facility] Neutrophils/100 WBC (Bld) 73.5 % 43.0 - 75.0 % [facility] Platelet mean volume (Bld) [Entitic vol] 10.2 fL 9.5 - 13.5 fL [facility] TBH EO # 0.1 [facility] TBH PLT 287 [facility] TB RBC 3.53 Low [facility] TB WBC 9 [facility] Basophils Auto (Bld) [#/Vol] on 08-25-2024 Basophils (Bld) [#/Vol] Automated basophil count 0.0-0.1 [facility] Basophils/100 WBC Auto (Bld) on 08-25-2024 Basophils/100 WBC (Bld) Automated basophil % 0.2-2.0 [facility] Eosinophils/100 WBC Auto (Bl d)on 08-25-2024 Eosinophils/100 WBC (Bld) Automated eosinophil % Low 0.9-7.0 [facility] Erythrocyte distribution wid th Auto (RBC) [Ratio]on 08-25-2024 Erythrocyte distribution width (RBC) [Ratio] Erythrocyte distribution width [Ratio] by Automated count 11.0-15.0 [facility] FPG ECG *CARDIOLOGY ONLY*on 08-25-2024 FPG ECG *CARDIOLOGY ONLY* [facility] [place] [address] Electrocardiograph Report Signed Patient: Tawnya Herring MR#: [id number] 29 : 1995 Acct:[id number] Age/Sex: 29 / F ADM Date: 08/25/24 Loc: [facility] Room: Type: [facility] Attending Dr: Mary Ellen Bruce MD [...] Normal ECG Confirmed by Mary Ellen Bruce ([id number]) on 08/25/2024 1:42:57 PM Referred By: Electronically Signed By: Mary Ellen Bruce Transcribed By: MUS Signed By Mary Ellen Bruce MD 5 1342 Normal [facility] Hematocrit Auto (Bld) [Volum e fraction]on 08-25-2024 Hematocrit (Bld) [Volume fraction] Hematocrit [Volume Fraction] of Blood by Automated count Low 36.0-48.0 [facility] Hemoglobin [Mass/volume] in Bloodon 08-25-2024 Hemoglobin (Bld) [Mass/Vol] Hemoglobin [Mass/volume] in Blood Low 12.0-16.0 [facility] Laboratory - Chemistry and C hemistry - challengeon 08-25-2024 Glucose [Mass/Vol] 131 mg/dL High <130 [facility] - Hematology and Cell countson 08-25-2024 Immature granulocytes/100 WBC (Bld) 0.3 % 0.0-0.5 [facility] Leukocytes [#/volume] correc hamilton for nucleated erythrocytes in Blood by Automated counon 08-25-2024 WBC corrected for nucl RBC Auto (Bld) [#/Vol] Leukocytes [#/volume] corrected for nucleated erythrocytes in Blood by Automated coun 4.0-11.0 [facility] Lymphocytes Auto (Bld) [#/Vo l]on 08-25-2024 Lymphocytes (Bld) [#/Vol] Lymphocytes [#/volume] in Blood by Automated count 1.2-3.8 [facility] Lymphocytes/100 WBC Auto (Bl d)on 08-25-2024 Lymphocytes/100 WBC (Bld) Lymphocytes/100 leukocytes in Blood by Automated count Low 20.5-60.0 [facility] MCH Auto (RBC) [Entitic mass ]on 08-25-2024 MCH (RBC) [Entitic mass] MCH [Entitic mass] by Automated count 26.7-34.0 [facility] MCHC Auto (RBC) [Mass/Vol]on 08-25-2024 MCHC (RBC) [Mass/Vol] MCHC [Mass/volume] by Automated count 29.9-35.2 [facility] MCV Auto (RBC) [Entitic vol] on 08-25-2024 MCV (RBC) [Entitic vol] MCV [Entitic volume] by Automated count 81.0-99.0 [facility] Monocytes Auto (Bld) [#/Vol] on 08-25-2024 Monocytes (Bld) [#/Vol] Automated blood monocyte count 0.3-0.8 [facility] Monocytes/100 WBC Auto (Bld) on 08-25-2024 Monocytes/100 WBC (Bld) Automated monocyte % 1.7-12.0 [facility] Neutrophils Auto (Bld) [#/Vo l]on 08-25-2024 Neutrophils (Bld) [#/Vol] Neutrophils [#/volume] in Blood by Automated count High 1.4-6.5 [facility] Neutrophils/100 WBC Auto (Bl d)on 08-25-2024 Neutrophils/100 WBC (Bld) Automated neutrophil % 43.0-75.0 [facility] No Panel Informationon 08-25 Eosinophils # (Auto) 0.1 10 3/uL 0.0-0.7 [facility] Immature Granulocyte # (Auto) 0.03 10 3/uL 0.00-0.03 [facility] Platelet mean volume Auto (B ld) [Entitic vol]on 08-25-2024 Platelet mean volume (Bld) [Entitic vol] Platelet mean volume [Entitic volume] in Blood by Automated count 9.5-13.5 [facility] Platelets Auto (Bld) [#/Vol] on 08-25-2024 Platelets (Bld) [#/Vol] Platelets [#/volume] in Blood by Automated count 150-450 [facility] RBC Auto (Bld) [#/Vol]on RBC (Bld) [#/Vol] Erythrocytes [#/volu me] in Blood by Automated count Low 4.20-5.40 [facility] Urinalysis macro (dipstick) panel (U)on 08-23-2024 Bilirubin, UA Negative Negative - 4(70) +++ mg/dL [facility] Blood, UA Negative Negative - 50 Dain/mcL [facility] Clarity, UA Clear [facility] Color, UA Yellow [facility] Glucose, UA Negative Negative - 1999(110) ++++ mg/dL [facility] Interpretation and review of laboratory results Abnormal [facility] Ketones, UA Negative Negative - 160(16) ++++ mg/dL [facility] Leukocytes, UA Positive Negative - 500+++ Chaparrita/mcL [facility] Comment on above: small Nitrite, UA Negative Negative - Positive [facility] pH, UA 7 5 - 9 [facility] Protein, UA Negative Negative - 1999(20) ++++ mg/dL [facility] Spec Grav, UA 1.02 1 - 1.03 [facility] Urobilinogen, UA 0.2 0.2 - 12 mg/dL [facility] Thyroid Stimulating Hormoneo n 07-31-2024 TSH Qn 2.07 m[IU]/L Normal 0.45-5.33 [facility] Comment on above: Result Comment: PERF ORMED BY: [facility] [address] [place] [address] PATHOLOGIST PANELBOARD OPERATOR MIS SCHMIDT M.D. Performed By: #### T SH3 ####[facility] [address] [address] [facility] Thyrotropin [Units/volume] i n Serum or PlasmaOrdered By: Brain Way on 07-31-2024 TSH Qn Thyrotropin [Units/v olume] in Serum or Plasma 0.45-5.33 [facility] Urinalysis macro (dipstick) panel (U)on 07-11-2024 Bilirubin, UA Negative Negative - 4(70) +++ mg/dL [facility] Blood, UA Negative Negative - 50 Dain/mcL [facility] Clarity, UA Clear [facility] Color, UA Yellow [facility] Glucose, UA Negative Negative - 1999(110) ++++ mg/dL [facility] Interpretation and review of laboratory results Abnormal [facility] Ketones, UA Negative Negative - 160(16) ++++ mg/dL [facility] Leukocytes, UA Trace Negative - 500+++ Chaparrita/mcL [facility] Nitrite, UA Negative Negative - Positive [facility] pH, UA 6 5 - 9 [facility] Protein, UA Negative Negative - 1999(20) ++++ mg/dL [facility] Spec Grav, UA 1.01 1 - 1.03 [facility] Urobilinogen, UA 0.2 0.2 - 12 mg/dL [facility] Alpha-fetoprotein (AFP) luis urement (tfxyizki-af-fibcod)Ordered By: Brain Way on 06-28-2024 AFP [MoM] Alpha-fetoprotein (A FP) measurement (dgueusjx-ss-xdbuhh) . [facility] Determination of gestational ageOrdered By: Brain Way on 06-28-2024 Gestational age Assess gestational age . [facility] Estimation of maternal age-s pecific risk of Down syndrome birthOrdered By: Brain Way on 06-28-2024 Age [Time] Estimation of matern al age-specific risk of Down syndrome . [facility] Human chorionic gonadotropin (hCG) multiple of median measurementOrdered By: Brain Way on 06-28-2024 HCG [MoM] Human chorionic gonadotropin (hCG) multiple of median measurement . [facility] Insulin dependent diabetes m ellitus detectionOrdered By: Brain Way on 06-28-2024 Insulin dependent diabetes mellitus Ql Insulin dependent diabetes mellitus detection . [facility] Interpretation of serum or p lasma second trimester quad maternal screen (narrative reOrdered By: Brain Way on 06-28-2024 Second trimester quad maternal screen Mathew [Interp] Interpretation of serum or plasma second trimester quad maternal screen (narrative re . [facility] Comment on above: Interpretation:An in terpretation CANNOT be provided for this patientbecause necessary patient information was not provided (oneor more of: gestational age, weight, or patient age).Please call us with new clinical information.Recalculations are not recommended when gestational datingby LMP and ultrasound are within 10 days. No Panel InformationOrdered By: Brain Way on 06-28-2024 AFP Triple Screen Comment Comment . [facility] Comment on above: Stephanie Pinto , Ph.D., DABCCDirectorReferences: Available Upon Request.Multiples Of Median Cutoffs Abbreviation Definitions For AFP Elevations IDD- Insulin Dep DiabetesSingleton 2.5 Black 2.8 OSBR- Open Spina BifidaIDD 2.0 Twins 4.5 RiskDSR Cutoff 1:270 DSR- Down Syndrome RiskT18 Cutoff 1:100 T18- Trisomy 18For further inquiries contact [facility] Servicesat [phone].This test was developed and its performance characteristicsdetermined by [facility]. It has not been cleared or approvedby the Food and Drug Administration.Performed at: [facility] [employer] [id number] [place], [place] [id number] Director: Aubrey Moreno [facility], Phone: [phone] Alpha Fetoprotein Results Received Report . [facility] Down Syndrome Age Equivalent See interpretation. . [facility] Gestational Age Calculation Method Ultrasound . [facility] Comment on above: 18:5 on 06/12/2024 Maternal Quad Test Risk See interpretation. . [facility] Maternal Race . [facility] Multiple No . [facility] Serum or plasma fifjv-6-etfp protein measurement (mass/volume)Ordered By: Brain Way on 06-28-2024 AFP [Mass/Vol] Serum or plasma grbdx-6-oamzhpnxxdr measurement (mass/volume) . [facility] Serum or plasma inhibin A me asurement (adjusted bezliisp-ah-memlpp)Ordered By: Brain Way on 06-28-2024 Inhibin A adjusted [MoM] Serum or plasma inhibin A measurement (adjusted tdvnptkn-ci-gwrgmi) . [facility] Serum or plasma inhibin A me asurement (mass/volume)Ordered By: Brain Way on 06-28-2024 Inhibin A [Mass/Vol] Inhibin A [Mass/vol ume] in Serum or Plasma . [facility] Serum or plasma total combin ed intact choriogonadotropin and beta subunit measurementOrdered By: Brain Way on 06-28-2024 HCG.intact+Beta subunit Qn Serum or plasma total combined intact choriogonadotropin and beta subunit measurement . [facility] Serum or plasma unconjugated estriol (E3) measurement (adjusted dpyxkyvw-pj-fxyhpd)Ordered By: Brain Way on 06-28-2024 E3.unconjugated adjusted [MoM] Serum or plasma unconjugated estriol (E3) measurement (adjusted navkrjxx-jk-siuzeu) . [facility] Serum or plasma unconjugated estriol (E3) measurement (mass/volume)Ordered By: Brain Way on 06-28-2024 E3.unconjugated [Mass/Vol] Serum or plasma unconjugated estriol (E3) measurement (mass/volume) . [facility] Thyroid Stimulating Hormoneo n 06-28-2024 TSH Qn 3.44 m[IU]/L Normal 0.45-5.33 [facility] Comment on above: Result Comment: PERF ORMED BY: [address] [place] [address] PATHOLOGIST PANELBOARD OPERATOR JORDI SMITH M.D. Performed By: #### T SH3 #### [address] [place] [address] [facility] Thyrotropin [Units/volume] i n Serum or PlasmaOrdered By: Brain Way on 06-28-2024 TSH Qn Thyrotropin [Units/v olume] in Serum or Plasma 0.45-5.33 [facility] Trisomy 21 risk determinatio n in fetusOrdered By: Brain Way on 06-28-2024 Trisomy 21 risk Qn (fetus) Trisomy 21 risk determination in fetus . [facility] US OB >= 14 weeks Fetuson US OB >= 14 weeks Fetus [facility] [place] [address] [place], [place] [id number] Ultrasound Report Signed Patient: Tawnya Herring MR#: [id number] 29 : 1995 Acct:[id number] Age/Sex: 28 / F ADM Date: 06/22/24 Loc: Room: Type: [facility] Attending Dr: Brain Way DO Ordering Provider: Brain Way Date of Service: 06/22/24 US/US OB >= 14 weeks Fetus: Z36.89 Copies to: Brain Way OB ultrasound. Reason for exam:Anatomy and cervical [...] Norton Jr., D.O.06/22/2024 4:00 PM Dictation Location: [employer] Tech: Rae De Paz Transcribed By: [facility] 06/22/24 1600 Dictated By: Zay Norton Jr, DO 06/22/24 1552 Signed By: 06/22/24 1600 Normal [facility] Urinalysis macro (dipstick) panel (U)on 06-12-2024 Bilirubin, UA Negative Negative - 4(70) +++ mg/dL [facility] Blood, UA Negative Negative - 50 Dain/mcL [facility] Clarity, UA Clear [facility] Color, UA Yellow [facility] Glucose, UA Negative Negative - 2000(110) ++++ mg/dL [facility] Interpretation and review of laboratory results Abnormal [facility] Ketones, UA Negative Negative - 160(16) ++++ mg/dL [facility] Leukocytes, UA Positive Negative - 500+++ Chaparrita/mcL [facility] Comment on above: small Nitrite, UA Negative Negative - Positive [facility] pH, UA 6 5 - 9 [facility] Protein, UA Negative Negative - 2000(20) ++++ mg/dL [facility] Spec Grav, UA 1.025 1 - 1.03 [facility] Urobilinogen, UA 1.0 0.2 - 12 mg/dL [facility] Thyrotropin [Units/volume] i n Serum or PlasmaOrdered By: Brain Way on 05-24-2024 TSH Qn 2.42 m[IU]/L Normal 0.45-5.33 [facility] Comment on above: Result Comment: PERF ORMED BY: [place] [address] PATHOLOGIST PANELBOARD OPERATOR JORDI SMITH M.D. Performed By: #### T SH3 #### [address] TSH Qn Thyrotropin [Units/v olume] in Serum or Plasma 0.45-5.33 [facility] Urinalysis macro (dipstick) panel (U)on 05-10-2024 Bilirubin, UA Negative Negative - 4(70) +++ mg/dL [facility] Blood, UA Negative Negative - 50 Dain/mcL [facility] Clarity, UA Clear [facility] Color, UA Yellow [facility] Glucose, UA Negative Negative - 1999(110) ++++ mg/dL [facility] Interpretation and review of laboratory results Normal [facility] Ketones, UA Negative Negative - 160(16) ++++ mg/dL [facility] Leukocytes, UA Negative Negative - 500+++ Chaparrita/mcL [facility] Nitrite, UA Negative Negative - Positive [facility] pH, UA 6.5 5 - 9 [facility] Protein, UA Negative Negative - 1999(20) ++++ mg/dL [facility] Spec Grav, UA 1.020 1 - 1.03 [facility] Urobilinogen, UA 1.0 0.2 - 12 mg/dL [facility] IGP,APTIMA HPV,AGE GDLNon AGE GDLN ACOG TESTING Note . [facility] Comment on above: TESTS RESULT FLAG UN ITS REF RANGE LAB Clinician Provided Cytology Information Source.............Cervix No. of containers..01 ThinPrep Vial Age Algo ACOG Mariel... FLAG LEGEND: L-Low Normal,H-High Normal,LL-Alert Low,HH-Alert High <-Panic Low,>-Panic High,A-Abnormal,AA-Critical Abnormal Performed at: 01 =G [facility] [address] [facility] [place], [place] [place] [address] Christelle Galan MD, IGP, RFX APTIMA HPV ASCU Note . [facility] Comment on above: TESTS RESULT FLAG UN ITS REF RANGE LAB DIAGNOSIS: 02 NEGATIVE FOR INTRAEPITHELIAL LESION OR MALIGNANCY. Specimen adequacy: 02 Satisfactory for evaluation. Endocervical and/or squamous metaplastic cells (endocervical component) are present. Performed by: 02 Vanessa Ornelas, Contact [employer] . 02 Note: Note 02 The Pap [...] <-Panic Low,>-Panic High,A-Abnormal,AA-Critical Abnormal Performed at: 02 WB [facility] [address] [place] [address] Christelle Galan MD, Performed at: = - [facility] [id number] Java Designer: Christelle Galan MD, Phone: [phone] Performed at: - [facility] [id number] Java Designer: Christelle Galan MD, Phone: [phone] [facility] URETHRITIS/DISCHARGE PLUS VA GINITIS (HTRX)on 04-22-2024 ATOPOBIUM VAGINAE 0.000 [facility] ATOPOBIUM VAGINAE Not detected [facility] BVAB 2,3 (BACTERIAL VAGINOSIS ASSOCIATED BACTERIA 2, 3); MOBILUNCUS SPP 24.821 Abnormal [facility] BVAB 2,3 (BACTERIAL VAGINOSIS ASSOCIATED BACTERIA 2, 3); MOBILUNCUS SPP Detected Abnormal [facility] JANET ALBICANS, PARAPSILOSIS, TROPICALIS 0.000 [facility] JANET ALBICANS, PARAPSILOSIS, TROPICALIS Not detected [facility] JANET GLABRATA 0.000 [facility] JANET GLABRATA Not detected [facility] JANET KRUSEI 0.000 [facility] JANET KRUSEI Not detected [facility] CHLAMYDIA TRACHOMATIS 0.000 [facility] CHLAMYDIA TRACHOMATIS Not detected N [facility] GARDNERELLA VAGINALIS 0.000 [facility] GARDNERELLA VAGINALIS Not detected N [facility] Interpretation and review of laboratory results Abnormal [facility] MEGASPHAERA (TYPES 1, 2) 0.000 [facility] MEGASPHAERA (TYPES 1, 2) Not detected [facility] MYCOPLASMA GENITALIUM 0.000 [facility] MYCOPLASMA GENITALIUM Not detected N [facility] NEISSERIA GONORRHOEAE 0.000 [facility] NEISSERIA GONORRHOEAE Not detected N [facility] TRICHOMONAS VAGINALIS 0.000 [facility] TRICHOMONAS VAGINALIS Not detected N [facility] Urinalysis macro (dipstick) panel (U)on 04-20-2024 Bilirubin, UA Negative Negative - 4(70) +++ mg/dL [facility] Blood, UA Positive Negative - 50 Dain/mcL [facility] Comment on above: trace-intact Clarity, UA Clear [facility] Color, UA Yellow [facility] Glucose, UA Negative Negative - 2000(110) ++++ mg/dL [facility] Interpretation and review of laboratory results Abnormal [facility] Ketones, UA Negative Negative - 160(16) ++++ mg/dL [facility] Leukocytes, UA Trace Negative - 500+++ Chaparrita/mcL [facility] Nitrite, UA Negative Negative - Positive [facility] pH, UA 6.0 5 - 9 [facility] Protein, UA Negative Negative - 1999(20) ++++ mg/dL [facility] Spec Grav, UA 1.030 1 - 1.03 [facility] Urobilinogen, UA 0.2 0.2 - 12 mg/dL [facility] CBC without diffon Hematocrit (Bld) [Volume fraction] 37.3 % [facility] Hemoglobin (Bld) [Mass/Vol] 13.3 g/dL [facility] Rbc Mcv (Fl) By Automated Count 92.1 [facility] No Panel Informationon 04-13 [facility] Rubella IGG immune statuson 04-13-2024 Rubella immune IgG 1.33 [facility] Syphilis Total(Unknown Syphi lis Status)on 04-13-2024 Syphilis Non-Reactive [facility] TBH BOX TEST SENT OUTon 03-17 BOX TEST SENT OUT 04/13/24 [facility] Drug Screen, Urineon 024 Amphetamine/Methamphe tamine Negative [facility] Barbiturate Screen Urine Negative [facility] Benzodiazepine Screen, Urine Negative [facility] Cocaine Metabolite Negative [facility] Methadone,Meconium Negative [facility] Opiate Quantitative Urine Negative [facility] Oxycodone Negative [facility] Phencyclidine Negative [facility] Thc Marijuana, Urine Negative [facility] HCG ( test) Ql (U)o n 04-07-2024 Interpretation and review of laboratory results Abnormal [facility] Preg Test, Ur Positive [facility] Urinalysis macro (dipstick) panel (U)on 04-07-2024 Bilirubin, UA Negative Negative - 4(70) +++ mg/dL [facility] Blood, UA Negative Negative - 50 Dain/mcL [facility] Clarity, UA Clear [facility] Color, UA Yellow [facility] Glucose, UA Negative Negative - 1999(110) ++++ mg/dL [facility] Interpretation and review of laboratory results Abnormal [facility] Ketones, UA Negative Negative - 160(16) ++++ mg/dL [facility] Leukocytes, UA Positive Negative - 500+++ Chaparrita/mcL [facility] Comment on above: small Nitrite, UA Negative Negative - Positive [facility] pH, UA 7.0 5 - 9 [facility] Protein, UA Negative Negative - 1999(20) ++++ mg/dL [facility] Spec Grav, UA 1.025 1 - 1.03 [facility] Urobilinogen, UA 0.2 0.2 - 12 mg/dL [facility] Automated basophil %Ordered By: Addi Ortega on 04-06-2024 Basophils/100 WBC (Bld) 0.2 % Normal . [facility] Comment on above: Performed By: #### P ILLAR TSH, PILLAR LIPID, PILLAR CBC, PILLAR BMP #### [facility] [address] [place] [address] Automated basophil countOrde red By: Addi Ortega on 04-06-2024 Basophils (Bld) [#/Vol] 0.0 10*3/uL Normal 0.0-0.2 [facility] Comment on above: Result Comment: PERF ORMED BY: [place] [address] PATHOLOGIST PANELBOARD OPERATOR JORDI SMITH M.D. Performed By: #### P ILLAR TSH, PILLAR LIPID, PILLAR CBC, PILLAR BMP #### [facility] [address] [place] [address] Automated blood monocyte cou ntOrdered By: Addi Ortega on 04-06-2024 Monocytes (Bld) [#/Vol] 0.5 10*3/uL Normal 0.0-0.8 [facility] Comment on above: Performed By: #### P ILLAR TSH, PILLAR LIPID, PILLAR CBC, PILLAR BMP #### [facility] [address] [place] [address] Automated eosinophil %Ordere d By: Addi Ortega on 04-06-2024 Eosinophils/100 WBC (Bld) 0.5 % Normal . [facility] Comment on above: Performed By: #### P ILLAR TSH, PILLAR LIPID, PILLAR CBC, PILLAR BMP #### [facility] [address] Automated eosinophil countOr dered By: Addi Ortega on 04-06-2024 Eosinophils (Bld) [#/Vol] 0.0 10*3/uL Normal 0.0-0.45 [facility] Comment on above: Performed By: #### P ILLAR TSH, PILLAR LIPID, PILLAR CBC, PILLAR BMP #### [facility] [address] [place] [address] Automated monocyte %Ordered By: Addi Ortega on 04-06-2024 Monocytes/100 WBC (Bld) 5.6 % Normal . [facility] Comment on above: Performed By: #### P ILLAR TSH, PILLAR LIPID, PILLAR CBC, PILLAR BMP #### [facility] [address] [place] [address] Automated neutrophil %Ordere d By: Addi Ortega on 04-06-2024 Neutrophils/100 WBC (Bld) 64.9 % Normal . [facility] Comment on above: Performed By: #### P ILLAR TSH, PILLAR LIPID, PILLAR CBC, PILLAR BMP #### [address] Basophils Auto (Bld) [#/Vol] Ordered By: Addi Ortega on 04-06-2024 Basophils (Bld) [#/Vol] Automated basophil count 0.0-0.2 [facility] Basophils/100 WBC Auto (Bld) Ordered By: Addi Ortega on 04-06-2024 Basophils/100 WBC (Bld) Automated basophil % . [facility] Calcium [Mass/volume] in Ser um or PlasmaOrdered By: Addi Ortega on 04-06-2024 Calcium [Mass/Vol] 8.9 mg/dL Normal 8.6-10.3 [facility] Comment on above: Performed By: #### P ILLAR TSH, PILLAR LIPID, PILLAR CBC, PILLAR BMP #### [facility] [address] [place] [address] [place] Calcium [Mass/Vol] Calcium [Mass/volume ] in Serum or Plasma 8.6-10.3 [facility] Carbon dioxide, total [Moles /volume] in Serum or PlasmaOrdered By: Addi Ortega on 04-06-2024 CO2 [Moles/Vol] 22.0 mmol/L Normal 21.0-31.0 [facility] Comment on above: Performed By: #### P ILLAR TSH, PILLAR LIPID, PILLAR CBC, PILLAR BMP #### [facility] [address] [place] [id number] [place] CO2 [Moles/Vol] Carbon dioxide, tota l [Moles/volume] in Serum or Plasma 21.0-31.0 [facility] Chloride [Moles/volume] in S ghada or PlasmaOrdered By: Addi Ortega on 04-06-2024 Chloride [Moles/Vol] 106 mmol/L Normal 98-107 [facility] Comment on above: Performed By: #### P ILLAR TSH, PILLAR LIPID, PILLAR CBC, PILLAR BMP #### [facility] [address] [place] [address] [place] Chloride [Moles/Vol] Chloride [Moles/vol ume] in Serum or Plasma 98-107 [facility] Cholesterol [Mass/volume] in Serum or PlasmaOrdered By: Addi Ortega on 04-06-2024 Cholesterol [Mass/Vol] 159 mg/dL Normal 140-200 [facility] Comment on above: Chol less than 200 m g/dl low riskChol 201-239 mg/dl borderline riskChol 240 mg/dl and greater high risk Result Comment: Chol less than 200 mg/dl low risk Chol 201-239 mg/dl borderline risk Chol 240 mg/dl and greater high risk Performed By: #### P ILLAR TSH, PILLAR LIPID, PILLAR CBC, PILLAR BMP #### [facility] [address] [place] [id number] [place] Cholesterol [Mass/Vol] Cholesterol [Mass/volume] in Serum or Plasma 140-200 [facility] Comment on above: Chol less than 200 m g/dl low riskChol 201-239 mg/dl borderline riskChol 240 mg/dl and greater high risk Cholesterol in HDL [Mass/vol ume] in Serum or PlasmaOrdered By: Addi Ortega on 04-06-2024 Cholesterol in HDL [Mass/Vol] Serum or plasma high density lipoprotein (HDL) cholesterol measurement [facility] Comment on above: HDL CHOL ATP-III CLA SSIFICATION Cardiovascular RiskHDL > or equal to 60 mg/dL LOWHDL < 40 mg/dL HIGH Cholesterol in LDL Calc [Mas s/Vol]Ordered By: Addi Ortega on 04-06-2024 Cholesterol in LDL [Mass/Vol] 95 mg/dL 0-100 [facility] Comment on above: LDL ATP III CLASSIFI CATIONLDL less than 100 mg/dL OptimalLDL 100-129 mg/dL Near or above optimalLDL 130-159 mg/dL Borderline highLDL 160-189 mg/dL HighLDL greater than 189 mg/dL Very high Cholesterol in LDL [Mass/Vol] Cholesterol in LDL [Mass/volume] in Serum or Plasma by calculation 0-100 [facility] Comment on above: LDL ATP III CLASSIFI CATIONLDL less than 100 mg/dL OptimalLDL 100-129 mg/dL Near or above optimalLDL 130-159 mg/dL Borderline highLDL 160-189 mg/dL HighLDL greater than 189 mg/dL Very high Cholesterol in VLDL Calc [Ma ss/Vol]Ordered By: Addi Ortega on 04-06-2024 Cholesterol in VLDL [Mass/Vol] 15 mg/dL [facility] Cholesterol in VLDL [Mass/Vol] Cholesterol in VLDL [Mass/volume] in Serum or Plasma by calculation [facility] Creatinine [Mass/volume] in Serum or PlasmaOrdered By: Addi Ortega on 04-06-2024 Creatinine [Mass/Vol] 0.44 mg/dL Low 0.60-1.20 [facility] Comment on above: Performed By: #### P ILLAR TSH, PILLAR LIPID, PILLAR CBC, PILLAR BMP #### [address] Creatinine [Mass/Vol] Creatinine [Mass/v olume] in Serum or Plasma Low 0.60-1.20 [facility] Employee Basic Metabolic Suero nargis 04-06-2024 GFR/1.73 sq M.predicted MDRD (S/P/Bld) [Vol rate/Area] mL/min/{1.73_m2} Normal [facility] Comment on above: Performed By: #### P ILLAR TSH, PILLAR LIPID, PILLAR CBC, PILLAR BMP #### [address] Employee Complete Blood Coun ton 04-06-2024 Mean Corpuscular HGB Conc 35.4 g/dL High 32.0-35.0 [facility] Comment on above: Performed By: #### P ILLAR TSH, PILLAR LIPID, PILLAR CBC, PILLAR BMP #### [address] NRBC% 0.0 /100{WBC} Normal 0-0.5 [facility] Comment on above: Performed By: #### P ILLAR TSH, PILLAR LIPID, PILLAR CBC, PILLAR BMP #### [address] Employee Lipid Profileon LDL Cholesterol,Calculate d 95 mg/dL Normal 0-100 [facility] Comment on above: Result Comment: LDL ATP III CLASSIFICATION LDL less than 100 mg/dL Optimal LDL 100-129 mg/dL Near or above optimal LDL 130-159 mg/dL Borderline high LDL 160-189 mg/dL High LDL greater than 189 mg/dL Very high Performed By: #### P ILLAR TSH, PILLAR LIPID, PILLAR CBC, PILLAR BMP #### [address] Triglyceride w/Reflex 79 mg/dL Normal 0-149 [facility] Comment on above: Result Comment: TRIG ATP III CLASSIFICATION TRIG less than 150 mg/dL Normal TRIG 150-199 mg/dL Borderline high TRIG 200-500 mg/dL High TRIG greater than 500 mg/dL Very high Standard traceable to the Center for Disease Conrtrol and Prevention (CDC) test method. Performed By: #### P ILLAR TSH, PILLAR LIPID, PILLAR CBC, PILLAR BMP #### [address] VLDL CHOLESTEROL 15 mg/dL Normal [facility] Comment on above: Performed By: #### P ILLAR TSH, PILLAR LIPID, PILLAR CBC, PILLAR BMP #### [facility] [address] Employee Thyroid Stim Hormon gokul 04-06-2024 Employee Thyroid Stim Hormone 2.72 u[iU]/mL Normal 0.45-5.33 [facility] Comment on above: Result Comment: PERF ORMED BY: [place] [address] PATHOLOGIST PANELBOARD OPERATOR JORDI SMITH M.D. Performed By: #### P ILLAR TSH, PILLAR LIPID, PILLAR CBC, PILLAR BMP #### [facility] [address] [place] [address] Eosinophils Auto (Bld) [#/Vo l]Ordered By: Addi Ortega on 04-06-2024 Eosinophils (Bld) [#/Vol] Automated eosinophil count 0.0-0.45 [facility] Eosinophils/100 WBC Auto (Bl d)Ordered By: Addi Ortega on 04-06-2024 Eosinophils/100 WBC (Bld) Automated eosinophil % . [facility] Erythrocyte distribution wid th Auto (RBC) [Ratio]Ordered By: Addi Ortega on 04-06-2024 Erythrocyte distribution width (RBC) [Ratio] Erythrocyte distribution width [Ratio] by Automated count 11.9-15.3 [facility] Erythrocyte distribution wid th [Ratio] by Automated countOrdered By: Addi Ortega on 04-06-2024 Erythrocyte distribution width (RBC) [Ratio] 12.7 % Normal 11.9-15.3 [facility] Comment on above: Performed By: #### P ILLAR TSH, PILLAR LIPID, PILLAR CBC, PILLAR BMP #### [facility] [address] [place] [address] Erythrocytes [#/volume] in B lood by Automated countOrdered By: Addi Ortega on 04-06-2024 RBC (Bld) [#/Vol] 4.04 10*6/uL Normal 3.60-5.00 [facility] Comment on above: Performed By: #### P ILLAR TSH, PILLAR LIPID, PILLAR CBC, PILLAR BMP #### [facility] [address] [place] [phone] [place] Glucose [Mass/volume] in Ser um or PlasmaOrdered By: Addi Ortega on 04-06-2024 Glucose [Mass/Vol] 82 mg/dL Normal 70-100 [facility] Comment on above: Performed By: #### P ILLAR TSH, PILLAR LIPID, PILLAR CBC, PILLAR BMP #### [facility] [address] [place] [phone] [place] Glucose [Mass/Vol] Glucose [Mass/volume ] in Serum or Plasma 70-100 [facility] Hematocrit Auto (Bld) [Volum e fraction]Ordered By: Addi Ortega on 04-06-2024 Hematocrit (Bld) [Volume fraction] Hematocrit [Volume Fraction] of Blood by Automated count 34.0-46.4 [facility] Hematocrit [Volume Fraction] of Blood by Automated countOrdered By: Addi Ortega on 04-06-2024 Hematocrit (Bld) [Volume fraction] 37.6 % Normal 34.0-46.4 [facility] Comment on above: Performed By: #### P ILLAR TSH, PILLAR LIPID, PILLAR CBC, PILLAR BMP #### [facility] [address] [place] [phone] [place] Hemoglobin [Mass/volume] in BloodOrdered By: Addi Ortega on 04-06-2024 Hemoglobin (Bld) [Mass/Vol] 13.3 g/dL Normal 11.8-15.4 [facility] Comment on above: Performed By: #### P ILLAR TSH, PILLAR LIPID, PILLAR CBC, PILLAR BMP #### [facility] [address] [place] [phone] [place] Hemoglobin (Bld) [Mass/Vol] Hemoglobin [Mass/volume] in Blood 11.8-15.4 [facility] Leukocytes [#/volume] correc hamilton for nucleated erythrocytes in Blood by Automated counOrdered By: Addi Ortega on 04-06-2024 WBC corrected for nucl RBC Auto (Bld) [#/Vol] 8.9 10*3/uL 3.8-11.6 [facility] WBC corrected for nucl RBC Auto (Bld) [#/Vol] Leukocytes [#/volume] corrected for nucleated erythrocytes in Blood by Automated coun 3.8-11.6 [facility] Leukocytes [#/volume] in Blo od by Automated countOrdered By: Addi Ortega on 04-06-2024 WBC (Bld) [#/Vol] 8.9 10*3/uL Normal 3.8-11.6 [facility] Comment on above: Performed By: #### P ILLAR TSH, PILLAR LIPID, PILLAR CBC, PILLAR BMP #### [facility] [address] [place] [address] Lymphocytes Auto (Bld) [#/Vo l]Ordered By: Addi Ortega on 04-06-2024 Lymphocytes (Bld) [#/Vol] Lymphocytes [#/volume] in Blood by Automated count 1.00-4.8 [facility] Lymphocytes [#/volume] in Bl ood by Automated countOrdered By: Addi Ortega on 04-06-2024 Lymphocytes (Bld) [#/Vol] 2.5 10*3/uL Normal 1.00-4.8 [facility] Comment on above: Performed By: #### P ILLAR TSH, PILLAR LIPID, PILLAR CBC, PILLAR BMP #### [facility] [address] [place] [address] Lymphocytes/100 WBC Auto (Bl d)Ordered By: Addi Ortega on 04-06-2024 Lymphocytes/100 WBC (Bld) Lymphocytes/100 leukocytes in Blood by Automated count . [facility] Lymphocytes/100 leukocytes i n Blood by Automated countOrdered By: Addi Ortega on 04-06-2024 Lymphocytes/100 WBC (Bld) 28.8 % Normal . [facility] Comment on above: Performed By: #### P ILLAR TSH, PILLAR LIPID, PILLAR CBC, PILLAR BMP #### [facility] [address] [place] [address] [place] MCH Auto (RBC) [Entitic mass ]Ordered By: Addi Ortgea on 04-06-2024 MCH (RBC) [Entitic mass] MCH [Entitic mass] by Automated count 24.7-34.3 [facility] MCH [Entitic mass] by Automa hamilton countOrdered By: Addi Ortega on 04-06-2024 MCH (RBC) [Entitic mass] 32.9 pg Normal 24.7-34.3 [facility] Comment on above: Performed By: #### P ILLAR TSH, PILLAR LIPID, PILLAR CBC, PILLAR BMP #### [facility] [address] MCHC Auto (RBC) [Mass/Vol]Or dered By: Addi Ortega on 04-06-2024 MCHC (RBC) [Mass/Vol] 35.4 g/dL High 32.0-35.0 [facility] MCHC (RBC) [Mass/Vol] MCHC [Mass/volume] by Automated count High 32.0-35.0 [facility] MCV Auto (RBC) [Entitic vol] Ordered By: Addi Ortega on 04-06-2024 MCV (RBC) [Entitic vol] MCV [Entitic volume] by Automated count 80-100 [facility] MCV [Entitic volume] by Auto mated countOrdered By: Addi Ortega on 04-06-2024 MCV (RBC) [Entitic vol] 93.2 fL Normal 80-100 [facility] Comment on above: Performed By: #### P ILLAR TSH, PILLAR LIPID, PILLAR CBC, PILLAR BMP #### [facility] [address] Monocytes Auto (Bld) [#/Vol] Ordered By: Addi Ortega on 04-06-2024 Monocytes (Bld) [#/Vol] Automated blood monocyte count 0.0-0.8 [facility] Monocytes/100 WBC Auto (Bld) Ordered By: Addi Ortega on 04-06-2024 Monocytes/100 WBC (Bld) Automated monocyte % . [facility] Neutrophils Auto (Bld) [#/Vo l]Ordered By: Addi Ortega on 04-06-2024 Neutrophils (Bld) [#/Vol] Neutrophils [#/volume] in Blood by Automated count 1.8-7.7 [facility] Neutrophils [#/volume] in Bl ood by Automated countOrdered By: Addi Ortega on 04-06-2024 Neutrophils (Bld) [#/Vol] 5.8 10*3/uL Normal 1.8-7.7 [facility] Comment on above: Performed By: #### P ILLAR TSH, PILLAR LIPID, PILLAR CBC, PILLAR BMP #### [facility] [address] [place] [address] [place] Neutrophils/100 WBC Auto (Bl d)Ordered By: Addi Ortega on 04-06-2024 Neutrophils/100 WBC (Bld) Automated neutrophil % . [facility] No Panel InformationOrdered By: Addi Ortega on 04-06-2024 Estimated GFR (CKD-EPI) > 60.0 mL/Min [facility] Creatinine Clearance (Chem N/A [facility] Nucleated erythrocytes [Pres ence] in Blood by Automated countOrdered By: Addi Ortega on 04-06-2024 Nucleated RBC Auto Ql (Bld) 0.0 /100{WBC} 0-0.5 [facility] Nucleated RBC Auto Ql (Bld) Nucleated erythrocytes [Presence] in Blood by Automated count 0-0.5 [facility] Platelet mean volume Auto (B ld) [Entitic vol]Ordered By: Addi Ortega on 04-06-2024 Platelet mean volume (Bld) [Entitic vol] Platelet mean volume [Entitic volume] in Blood by Automated count 6.3-10.7 [facility] Platelet mean volume [Entiti c volume] in Blood by Automated countOrdered By: Addi Ortega on 04-06-2024 Platelet mean volume (Bld) [Entitic vol] 8.8 fL Normal 6.3-10.7 [facility] Comment on above: Performed By: #### P ILLAR TSH, PILLAR LIPID, PILLAR CBC, PILLAR BMP #### [facility] [address] [place] [address] [place] Platelets Auto (Bld) [#/Vol] Ordered By: Addi Ortega on 04-06-2024 Platelets (Bld) [#/Vol] Platelets [#/volume] in Blood by Automated count 150-450 [facility] Platelets [#/volume] in Bloo d by Automated countOrdered By: Addi Ortega on 04-06-2024 Platelets (Bld) [#/Vol] 274 10*3/uL Normal 150-450 [facility] Comment on above: Performed By: #### P ILLAR TSH, PILLAR LIPID, PILLAR CBC, PILLAR BMP #### [facility] [address] [place] [address] [place] Potassium [Moles/volume] in Serum or PlasmaOrdered By: Addi Ortega on 04-06-2024 Potassium [Moles/Vol] 4.0 mmol/L Normal 3.5-5.1 [facility] Comment on above: Performed By: #### P ILLAR TSH, PILLAR LIPID, PILLAR CBC, PILLAR BMP #### [facility] [address] [place] [address] [place] Potassium [Moles/Vol] Potassium [Moles/v olume] in Serum or Plasma 3.5-5.1 [facility] RBC Auto (Bld) [#/Vol]Ordere d By: Addi Ortega on 04-06-2024 RBC (Bld) [#/Vol] Erythrocytes [#/volu me] in Blood by Automated count 3.60-5.00 [facility] Serum or plasma anion gap de terminationOrdered By: Addi Ortega on 04-06-2024 Anion gap [Moles/Vol] 11.0 mmol/L Normal 6.0-15.0 [facility] Comment on above: Performed By: #### P ILLAR TSH, PILLAR LIPID, PILLAR CBC, PILLAR BMP #### [facility] [address] [place] [address] [place] Anion gap [Moles/Vol] Serum or plasma an ion gap determination 6.0-15.0 [facility] Serum or plasma high density lipoprotein (HDL) cholesterol measurementOrdered By: Addi Ortega on 04-06-2024 Cholesterol in HDL [Mass/Vol] 48 mg/dL Normal 23-92 [facility] Comment on above: HDL CHOL ATP-III CLA SSIFICATION Cardiovascular RiskHDL > or equal to 60 mg/dL LOWHDL < 40 mg/dL HIGH Result Comment: HDL CHOL ATP-III CLASSIFICATION Cardiovascular Risk HDL > or equal to 60 mg/dL LOW HDL < 40 mg/dL HIGH Performed By: #### P ILLAR TSH, PILLAR LIPID, PILLAR CBC, PILLAR BMP #### [facility] [address] Serum or plasma total choles terol/high density lipoprotein (HDL) cholesterol mass ratOrdered By: Addi Ortega on 04-06-2024 Cholesterol.total/Cho lesterol in HDL [Mass ratio] 3.3 {ratio} Normal <5.0 [facility] Comment on above: Performed By: #### P ILLAR TSH, PILLAR LIPID, PILLAR CBC, PILLAR BMP #### [facility] [address] Cholesterol.total/Cho lesterol in HDL [Mass ratio] Serum or plasma total cholesterol/high density lipoprotein (HDL) cholesterol mass rat <5.0 [facility] Sodium [Moles/volume] in Ser um or PlasmaOrdered By: Addi Ortega on 04-06-2024 Sodium [Moles/Vol] 135 mmol/L Low 136-145 [facility] Comment on above: Performed By: #### P ILLAR TSH, PILLAR LIPID, PILLAR CBC, PILLAR BMP #### [address] Sodium [Moles/Vol] Sodium [Moles/volume ] in Serum or Plasma Low 136-145 [facility] Thyrotropin [Units/volume] i n Serum or PlasmaOrdered By: Addi Ortega on 04-06-2024 TSH Qn 2.72 m[IU]/L 0.45-5.33 [facility] TSH Qn Thyrotropin [Units/v olume] in Serum or Plasma 0.45-5.33 [facility] Triglyceride [Mass/volume] i n Serum or PlasmaOrdered By: Addi Ortega on 04-06-2024 Triglyceride [Mass/Vol] 79 mg/dL 0-149 [facility] Comment on above: TRIG ATP III CLASSIF ICATIONTRIG less than 150 mg/dL NormalTRIG 150-199 mg/dL Borderline highTRIG 200-500 mg/dL High TRIG greater than 500 mg/dL Very highStandard traceable to the Center for Disease Conrtrol and Prevention (CDC) test method. Triglyceride [Mass/Vol] Triglyceride [Mass/volume] in Serum or Plasma 0-149 [facility] Comment on above: TRIG ATP III CLASSIF ICATIONTRIG less than 150 mg/dL NormalTRIG 150-199 mg/dL Borderline highTRIG 200-500 mg/dL High TRIG greater than 500 mg/dL Very highStandard traceable to the Center for Disease Conrtrol and Prevention (CDC) test method. Urea nitrogen [Mass/volume] in Serum or PlasmaOrdered By: Addi Ortega on 04-06-2024 Urea nitrogen [Mass/Vol] 7 mg/dL Normal 03-09 [facility] Comment on above: Performed By: #### P ILLAR TSH, PILLAR LIPID, PILLAR CBC, PILLAR BMP #### [address] Urea nitrogen [Mass/Vol] Urea nitrogen [Mass/volume] in Serum or Plasma 03-09 [facility] WBC Auto (Bld) [#/Vol]Ordere d By: Addi Ortega on 04-06-2024 WBC (Bld) [#/Vol] Leukocytes [#/volume ] in Blood by Automated count 3.8-11.6 [facility] ED Note-Physicianon 03-20-20 ED Note-Physician ED [...] and Complexity of Problems Differential Diagnosis: [] [facility] Data External documents reviewed: [] My [...] with the patient. 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 Discussed return precautions. [...] Nath In 3 days 03/21/2024 EDT [address] [place] [address]- Business (1) Additional Instructions: DARWIN JONES In 3 days [address] [place] [phone] Business (1) Additional Instructions: Patient Education Threatened Miscarriage Subchorionic Hematoma Attestation Patient seen and evaluated by the physician pediatric physician assistant. Attending physician was present in the emergency department and supervised care. This visit was performed by both the physician and an APC. I performed all aspects of the MDM as documented. This report was transcribed using voice recognition software. Every effort was made to ensure accuracy, however, inadvertently computerized filter tip catcher mistakes may be present. Appropriate [facility] (more content not included)... Normal [facility] Comment on above: Result Comment: Elec tronically Signed By: Hector Correa PA-C\.br\Date and Time Signed: 03/18/24 12:11 EDT\.br\Electronically Co-Signed By: Toan Lake DO\.jaspal\Date and Time Co-Signed: 03/20/24 07:17 EDT ABO/Rhon 03-18-2024 ABO/Rh Negative Invalid Interpretation Code [facility] Comment on above: Performed By: #### 2 [id number] #### [facility] [address] [place] [address] BLOOD BANKOrdered By: Nikky Brennan on 03-18-2024 ABO/Rh Interp Negative Invalid Interpretation Code [facility] BB Subsection BMPon 03-18-2024 Anion gap [Moles/Vol] 12 mmol/L Normal 6-16 [facility] Comment on above: Performed By: #### 2 [id number] #### [facility] [address] [place] [address] Calcium [Mass/Vol] 9.2 mg/dL Normal 8.9-11.1 [facility] Comment on above: Performed By: #### 2 [id number] #### [facility] [address] [place] [address] Chloride [Moles/Vol] 105 mmol/L Normal 101-111 [facility] Comment on above: Performed By: #### 2 [id number] #### [facility] [address] [place] [address] CO2 [Moles/Vol] 23 mmol/L Normal 21-31 [facility] Comment on above: Performed By: #### 2 [id number] #### [facility] [address] [place] [address] Creatinine [Mass/Vol] 0.5 mg/dL Normal 0.5-1.3 [facility] Comment on above: Performed By: #### 2 [id number] #### [facility] [address] [place] [address] Glucose [Mass/Vol] 92 mg/dL Normal 55-199 [facility] Comment on above: Performed By: #### 2 [id number] #### [facility] [address] [place] [address] Potassium [Moles/Vol] 3.8 mmol/L Normal 3.5-5.3 [facility] Comment on above: Performed By: #### 2 [id number] #### [facility] [address] [place] [address] Sodium [Moles/Vol] 136 mmol/L Normal 135-145 [facility] Comment on above: Performed By: #### 2 [id number] #### [facility] [address] [place] [address] Urea nitrogen [Mass/Vol] 9 mg/dL Normal 5-21 [facility] Comment on above: Performed By: #### 2 [id number] #### [facility] [address] [place] [address] Urea nitrogen/Creatinine [Mass ratio] 18 No Units Normal 10-20 [facility] Comment on above: Performed By: #### 2 [id number] #### [facility] [address] [place] [address] BhCG Quanton 03-18-2024 [place] [address] m[IU]/mL High 1-3 F [facility] Comment on above: Result Comment: 'F N ON < 1 - 3' ' 0.2 - 1 WEEK = 5 TO 50' ' 1 - 2 WEEKS = 50 - 500' ' 2 - 3 WEEKS = 100 - 5000' ' 3 - 4 WEEKS = 500 - 22274' ' 4 - 5 WEEKS = 1000 - 59338' ' 5 - 6 WEEKS = 94711 - 121514' ' 6 - 8 WEEKS = 92892 - 644419' ' 8 - 12 WEEKS = 70468 - 027906' Performed By: #### 2 [id number] #### [facility] [address] [place] [address] CBC w/ Auto Diffon 4 Basophils/100 WBC (Bld) 0.6 % Normal 0.0-2.0 [facility] Comment on above: Performed By: #### 2 [id number] #### [facility] [address] [place] [address] Basophils/Leukocytes Auto (Bld) [Pure # fraction] 0.0 E9/L Normal 0.0-0.2 [facility] Comment on above: Performed By: #### 2 [id number] #### [facility] [address] [place] [address] Eosinophils (Bld) [#/Vol] 0.0 E9/L Normal 0.0-0.5 [facility] Comment on above: Performed By: #### 2 166052 #### [facility] [address] [place] [address] Eosinophils/100 WBC (Bld) 0.5 % Normal 0.0-8.0 [facility] Comment on above: Performed By: #### 2 [id number] #### [facility] [address] [place] [address] Erythrocyte distribution width (RBC) [Ratio] 12.5 % Normal 10.9-14.2 [facility] Comment on above: Performed By: #### 2 [id number] #### [facility] [address] [place] [address] Hematocrit (Bld) [Volume fraction] 40.2 % Normal 34.0-46.0 [facility] Comment on above: Performed By: #### 2 [id number] #### [facility] [address] [place] [address] Hemoglobin (Bld) [Mass/Vol] 13.8 g/dL Normal 12.0-16.0 [facility] Comment on above: Performed By: #### 2 [id number] #### [facility] [address] [place] [address] Lymphocytes (Bld) [#/Vol] 2.4 E9/L Normal 1.0-4.0 [facility] Comment on above: Performed By: #### 2 552727 #### [facility] [address] [place] [address] Lymphocytes/100 WBC (Bld) 28.4 % Normal 14.0-50.0 [facility] Comment on above: Performed By: #### 2 092408 #### [facility] [address] [place] [address] MCH (RBC) [Entitic mass] 32.3 pg Normal 27.0-34.0 [facility] Comment on above: Performed By: #### 2 514206 #### [facility] [address] [place] [address] MCHC (RBC) [Mass/Vol] 34.3 g/dL Normal 31.4-36.0 [facility] Comment on above: Performed By: #### 2 421986 #### [facility] [address] [place] [address] MCV (RBC) [Entitic vol] 94.2 fL Normal 80.0-100.0 [facility] Comment on above: Performed By: #### 2 351702 #### [facility] [address] [place] [address] Monocytes (Bld) [#/Vol] 0.4 E9/L Normal 0.2-1.0 [facility] Comment on above: Performed By: #### 2 [id number] #### [facility] [address] [place] [address] Neutrophils (Bld) [#/Vol] 5.4 E9/L Normal 2.0-7.5 [facility] Comment on above: Performed By: #### 2 740088 #### [facility] [address] [place] [address] Neutrophils/100 WBC (Bld) 65.4 % Normal 36.0-75.0 [facility] Comment on above: Performed By: #### 2 303759 #### [facility] [address] [place] [address] Platelet mean volume (Bld) [Entitic vol] 8.5 fL Normal 6.4-10.8 [facility] Comment on above: Performed By: #### 2 [id number] #### [facility] [address] [place] [address] Platelets (Bld) [#/Vol] 249.0 E9/L Normal 150.0-500. 0 [facility] Comment on above: Performed By: #### 2 [id number] #### [facility] [address] [place] [address] RBC (Bld) [#/Vol] 4.3 E12/L Normal 4.3-5.9 [facility] Comment on above: Performed By: #### 2 925287 #### [facility] [address] [place] [address] WBC corrected for nucl RBC Auto (Bld) [#/Vol] 8.3 E9/L Normal 4.0-11.0 [facility] Comment on above: Performed By: #### 2 903585 #### [facility] [address] [place] [address] CHEMISTRYOrdered By: SYSTEM SYSTEM on 03-18-2024 Anion [...] 199 mg/[place] [address] m[IU]/mL High 1 - 3 mIU/mL [facility] Comment on above: Result Comment: 'F N ON < 1 - 3' ' 0.2 - 1 WEEK = 5 TO 50' ' 1 - 2 WEEKS = 50 - 500' ' 2 - 3 WEEKS = 100 - 5000' ' 3 - 4 WEEKS = 500 - 34387' ' 4 - 5 WEEKS = 1000 - 76545' ' 5 - 6 WEEKS = 225[address] - 697698' ' 6 - 8 WEEKS = 27263 - 896680' ' 8 - 12 WEEKS = 417[address] - 014704' Potassium [Moles/Vol] 3.8 mmol/L Normal 3.5 - 5.3 mmol/L [facility] Sodium [Moles/Vol] 136 mmol/L Normal 135 - 145 mmol/L [facility] Urea nitrogen [Mass/Vol] 9 mg/dL Normal 5 - 21 mg/dL [facility] Urea nitrogen/Creatinine [Mass ratio] 18 mg/mg Normal 10 - 20 [facility] ED Clinical Summaryon 2023 ED Clinical Summary ED Clinical Summary [place] [id number] ED Clinical Summary Person Information Name: TAWNYA HERRING Deysi/[facility] Age: 28 Years : 1995 Sex: Female Language: Lao PCP: DARWIN JONES CNP Marital Status: Single Phone: [phone] Visit Id: Visit Reason: Vaginal bleeding - [...] 03/18/2024 12:15:02 03/18/2024 12:15:02 03/18/2024 12:15:02 ADDRESS: [address] [place] [phone] PHYS DOC NOTES: MEDICAL INFORMATION: Prescriptions Given: Medications to Continue with No Changes Other Medications citalopram (CeleXA 20 mg Tab) 1 Tablets By Mouth every day. PATIENT EDUCATION INFORMATION: Instructions: Threatened Miscarriage; Subchorionic Hematoma Follow up: With: Address: When: [address], [place] [address] Business (1) In 3 days 03/21/2024 With: Address: When: DARWIN JONES [address] [place] [address] [place] [phone] Business (1) In 3 days DIAGNOSIS: Subchorionic bleed; Threatened Normal [facility] ED Patient Summaryon 024 ED Patient Summary ED Patient Summary [address] [address] Patient Discharge Instructions Person Information Name: TAWNYA HERRING Age: 28 Years Arrival Date: 03/18/2024 08:06:19 Discharge Diagnosis: Subchorionic bleed; Threatened Primary Care Physician: DARWIN JONES CNP Provider Information Primary Provider: Toan Lake DO Advanced Technical Assistance Consultant:None The exam and treatment you received in the Emergency Department were for an urgent problem and are not intended as complete care. It is important that you follow up with a doctor, nurse practitioner, or physician?s pediatric physician assistant for ongoing care. If your symptoms become worse or you do not improve as expected and you are unable to reach your usual health care provider, you should return to the Emergency Department. We are available 24 hours a day. BELIA HERRINGLEY Romie has been given the following list of patient education materials, prescriptions and follow-up instructions: Follow-up Instructions: With: Address: When: [address], [place] [address] Business (1) In 3 days 03/21/2024 With: Address: When: DARWIN [address] [place] [phone] Business (1) In 3 days In the event that this physician does not participate in your insurance network, please consult with your insurance company to find a nearby participating provider. Patient Education Materials: Threatened Miscarriage; Subchorionic Hematoma A MESSAGE TO ALL PATIENTS REGARDING OPIOIDS PRESCRIPTION OPIOIDS: WHAT YOU NEED TO KNOW Prescription opioids can be used to help relieve hhrfkdcc-tk-jsvoxo pain and are often prescribed following a [...] you be (more content not included)... Normal [facility] HEMATOLOGYOrdered By: SYSTEM SYSTEM on 03-18-2024 [...] Remisol Heme UA with Cult Rflxon 03-18-20 Bilirubin Ql (U) Negative Normal Negative [facility] Comment on above: Performed By: #### 4 [id number] #### [facility] [address] [place] [address] Clarity (U) Clear Normal Clear [facility] Comment on above: Performed By: #### 4 [id number] #### [facility] [address] [place] [address] Color (U) Yellow Normal Yellow [facility] Comment on above: Result Comment: Micr oscopic readings are only performed on those samples that meet specific criteria set forth by [facility]. Performed By: #### 4 [id number] #### [facility] [address] [place] [address] Epithelial cells.squamous Auto (Urine sed) [#/Area] 0-2 Invalid Interpretation Code [facility] Comment on above: Performed By: #### 4 [id number] #### [facility] [address] [place] [address] Glucose Ql (U) Negative Normal Negative [facility] Comment on above: Performed By: #### 4 [id number] #### [facility] [address] [place] [address] Hemoglobin Auto test strip (U) [Mass/Vol] 3+ mg/dL Abnormal Negative [facility] Comment on above: Performed By: #### 4 [id number] #### [facility] [address] [place] [address] Ketones Auto test strip Ql (U) Negative Normal Negative [facility] Comment on above: Performed By: #### 4 [id number] #### [facility] [address] [place] [address] Leukocyte esterase Auto test strip Ql (U) 25 Chaparrita/uL Normal Negative [facility] Comment on above: Performed By: #### 4 [id number] #### [facility] [address] [place] [address] Mucus Auto Ql (U) Trace Normal Negative [facility] Comment on above: Performed By: #### 4 [id number] #### [facility] [address] [place] [address] Nitrite Auto test strip Ql (U) Negative Normal Negative [facility] Comment on above: Performed By: #### 4 [id number] #### [facility] [address] [place] [address] pH (U) 7.5 [pH] Invalid Interpretation Code 5.0-9.0 [facility] Comment on above: Performed By: #### 4 [id number] #### [facility] [address] [place] [address] Protein Ql (U) Trace Abnormal Negative [facility] Comment on above: Performed By: #### 4 [id number] #### [facility] [address] [place] [address] RBC Ql (U) 31-75 Abnormal 0-3 [facility] Comment on above: Performed By: #### 4 [id number] #### [facility] [address] [place] [address] Specific gravity (U) [Rel density] 1.023 Invalid Interpretation Code 1.005-1.03 0 [facility] Comment on above: Performed By: #### 4 [id number] #### [facility] [address] [place] [address] Urobilinogen (U) [Mass/Vol] Negative Normal Negative [facility] Comment on above: Performed By: #### 4 [id number] #### [facility] [address] [place] [id number] WBC Auto (Urine sed) [#/Area] 0-5 Normal 0-5 [facility] Comment on above: Performed By: #### 4 [id number] #### [facility] [address] [place] [address] Type of Urine collection method Clean Catch Normal [facility] Comment on above: Performed By: #### 4 [id number] #### [facility] [address] [place] [address] URINALYSISOrdered By: SYSTEM SYSTEM on 03-18-2024 Bilirubin Ql (U) Negative Normal Negativemg /dL [facility] UA Auto SS Clarity (U) Clear (03/18/24 8:17 AM) Normal Clear [facility] UA Auto SS Color (U) Yellow 1 (03/18/24 8:17 AM) Normal Yellow [facility] UA Auto SS Comment on above: Interpretive Data: M icroscopic readings are only performed on those samples that meet specific criteria set forth by [facility]. Epithelial cells.squamous Auto (Urine sed) [#/Area] 0-2 graded/HPF Invalid Interpretation Code [facility] UA Auto SS Glucose Ql (U) Negative Normal Negativemg /dL [facility] UA Auto SS Hemoglobin Auto test strip [...] sed) [#/Area] 0-5 graded/HPF Normal 0-5graded/ HPF [facility] UA Auto SS URINALYSISOrdered By: Hector quiroga on 03-18-2024 UA Spec Desc Clean Catch (03/18/24 8:17 AM) Normal [facility] UA Auto SS US 1st Trimesteron [...] intrauterine , with heart rate 125 bpm. Espino-rump length 3.22 mm. Mean sac diameter 1.74 [...] Transabdominal Ultrasound Performed Transvaginal Ultrasound Performed Normal [facility] US Transvaginalon 03-18-2024 US Transvaginal Exam Date/Time: 03/18/2024 11:41 EDT Reason for Exam: Vaginal bleeding Report Please review ultrasound pelvis for ultrasound transvaginal report. Ordering Provider: Hector Correa FINAL REPORT Dictated: 03/18/2024 12:06 pm Luis Alfredo Bunch MD Signed (Electronic Signature): 03/18/2024 12:06 pm Signed by: Luis Alfredo Bunch MD Transcribed by: EDWIN Technologist: MARCOS Palma [facility] eGFRon 03-18-2024 eGFR 131 mL/min/1.73 m2 Normal >=59 [facility] Comment on above: Order Comment: Order added by Discern Expert. Performed By: #### 1 [id number] #### [facility] [address] [place] [address] Progesteroneon 02-24-2024 Progesterone 9.9 ng/mL Normal . [facility] Comment on above: Result Comment: Foll icular phase 0.1 - 0.9 Luteal phase 1.8 - 23.9 Ovulation phase 0.1 - 12.0 First trimester 11.0 - 44.3 Second trimester 25.4 - 83.3 Third trimester 58.7 - 214.0 Postmenopausal 0.0 - 0.1 Performed at: [address] [id number] Java Designer: Alexis Ashton PhD, Phone: [phone] PERFORMED BY: [place] [address] [place] [address] PATHOLOGIST PANELBOARD OPERATOR JORDI SMITH M.D. Performed By: #### P ANTHONY ####[facility] , Serum or plasma progesterone measurement (mass/volume)Ordered By: Brain Way on 02-24-2024 Progesterone [Mass/Vol] 9.9 ng/mL . [facility] Comment on above: Follicular phase 0.1 - 0.9 Luteal phase 1.8 - 23.9 Ovulation phase 0.1 - 12.0 First trimester 11.0 - 44.3 Second trimester 25.4 - 83.3 Third trimester 58.7 - 214.0 Postmenopausal 0.0 - 0.1Performed at: [facility] [address] [id number] Director: Alexis Ashton PhD, Phone: [phone] Progesteroneon 01-24-2024 Progesterone 8.5 ng/mL Normal . [facility] Comment on above: Result Comment: Foll icular phase 0.1 - 0.9 Luteal phase 1.8 - 23.9 Ovulation phase 0.1 - 12.0 First trimester 11.0 - 44.3 Second trimester 25.4 - 83.3 Third trimester 58.7 - 214.0 Postmenopausal 0.0 - 0.1 Performed at: [facility] [id number] Java Designer: Alexis Ashton PhD, Phone: [phone] PERFORMED BY: [address] [place] [address] PATHOLOGIST PANELBOARD OPERATOR JORDI SMITH M.D. Performed By: #### P ANTHONY ####[facility] , Serum or plasma progesterone measurement (mass/volume)Ordered By: Brain Way on 01-24-2024 Progesterone [Mass/Vol] 8.5 ng/mL . [facility] Comment on above: Follicular phase 0.1 - 0.9 Luteal phase 1.8 - 23.9 Ovulation phase 0.1 - 12.0 First trimester 11.0 - 44.3 Second trimester 25.4 - 83.3 Third trimester 58.7 - 214.0 Postmenopausal 0.0 - 0.1Performed at: [address] [id number] Director: Alexis Ashton PhD, Phone: [phone] Progesteroneon 12-27-2023 Progesterone 13.3 ng/mL Normal . [facility] Comment on above: Result Comment: Foll icular phase 0.1 - 0.9 Luteal phase 1.8 - 23.9 Ovulation phase 0.1 - 12.0 First trimester 11.0 - 44.3 Second trimester 25.4 - 83.3 Third trimester 58.7 - 214.0 Postmenopausal 0.0 - 0.1 Performed at: [address] [id number] Java Designer: Alexis Ashton PhD, Phone: [phone] PERFORMED BY: [place] [address] [place] [address] PATHOLOGIST PANELBOARD OPERATOR JORDI SMITH M.D. Performed By: #### P ANTHONY ####[facility] , Serum or plasma progesterone measurement (mass/volume)Ordered By: Brain Way on 12-27-2023 Progesterone [Mass/Vol] 13.3 ng/mL . [facility] Comment on above: Follicular phase 0.1 - 0.9 Luteal phase 1.8 - 23.9 Ovulation phase 0.1 - 12.0 First trimester 11.0 - 44.3 Second trimester 25.4 - 83.3 Third trimester 58.7 - 214.0 Postmenopausal 0.0 - 0.1Performed at: [address] [id number] Director: Alexis Ashton PhD, Phone: [phone] Progesteroneon 11-30-2023 Progesterone 16.9 ng/mL Normal . [facility] Comment on above: Result Comment: Foll icular phase 0.1 - 0.9 Luteal phase 1.8 - 23.9 Ovulation phase 0.1 - 12.0 First trimester 11.0 - 44.3 Second trimester 25.4 - 83.3 Third trimester 58.7 - 214.0 Postmenopausal 0.0 - 0.1 Performed at: [facility] [address] [place], [place] [id number] Java Designer: Alexis Ashton PhD, Phone: [phone] PERFORMED BY: [facility] Pedro [address] [place] [id number] PATHOLOGIST PANELBOARD OPERATOR JORDI SMITH M.D. Performed By: #### P ANTHONY ####[facility] , Serum or plasma progesterone measurement (mass/volume)Ordered By: Brain Way on 11-30-2023 Progesterone [Mass/Vol] 16.9 ng/mL . [facility] Comment on above: Follicular phase 0.1 - 0.9 Luteal phase 1.8 - 23.9 Ovulation phase 0.1 - 12.0 First trimester 11.0 - 44.3 Second trimester 25.4 - 83.3 Third trimester 58.7 - 214.0 Postmenopausal 0.0 - 0.1Performed at: [facility] [facility] [employer] [id number] Director: Alexis Ashtno PhD, Phone: [phone] Teresa 11-18-2023 CNOV Office Visit (ENDOMN ) -- TAWNYA HERRING ([id number]) 1995 F Date Time Provider Department 11/18/23 8:30 AM RUBY WHITTINGTON ENDOMN During your visit today, we recorded the following information about you: Pulse Blood pressure Weight Last Period 100/minute 132/92 110.7 kg 11/09/23 Odalis Greene 11/18/2023 7:58 AM Signed Thank you for choosing the [facility] Department of Endocrinology, Diabetes and Metabolism. Did you know that you need to call 48 hours in advance of your scheduled visit, if you are unable to make your appointment? The Endocrinology and Metabolism [facility] thanks you for your commitment, because patients not showing to their appointment results in a lost opportunity for patients to receive [facility] health care at the [facility]. To Cancel an appointment, please choose one of the following: - Call the Appointment Call Center at [phone] - From [facility], Go to Appointments - Cancel Appts If cancelling, consider your need to reschedule to prevent further delays in your care. To Schedule an appointment, please choose one of the following: - Call the Appointment Call Center at [phone] - From [facility], Go to Appointments - Request an Appt [...] as of 11/18/2023 - cyanocobalamin/folic acid (VITAMIN [id number] ACID) 1,000-400 mcg lozg Take by mouth (more content not included)... Normal [facility] Progesteroneon 11-01-2023 Progesterone 7.1 ng/mL Normal . [facility] Comment on above: Result Comment: Foll icular phase 0.1 - 0.9 Luteal phase 1.8 - 23.9 Ovulation phase 0.1 - 12.0 First trimester 11.0 - 44.3 Second trimester 25.4 - 83.3 Third trimester 58.7 - 214.0 Postmenopausal 0.0 - 0.1 Performed at: [facility] [id number] Java Designer: Alexis Ashton PhD, Phone: [phone] PERFORMED BY: [place] [address] [place] [address] PATHOLOGIST PANELBOARD OPERATOR JORDI SMITH M.D. Performed By: #### P ANTHONY #### [facility] , Serum or plasma progesterone measurement (mass/volume)Ordered By: Brain Way on 11-01-2023 Progesterone [Mass/Vol] 7.1 ng/mL . [facility] Comment on above: Follicular phase 0.1 - 0.9 Luteal phase 1.8 - 23.9 Ovulation phase 0.1 - 12.0 First trimester 11.0 - 44.3 Second trimester 25.4 - 83.3 Third trimester 58.7 - 214.0 Postmenopausal 0.0 - 0.1Performed at: [facility] [place] [address] [id number] Director: Alexis Ashton PhD, Phone: [phone] Progesteroneon 10-01-2023 Progesterone 0.9 ng/mL Normal . [facility] Comment on above: Result Comment: Foll icular phase 0.1 - 0.9 Luteal phase 1.8 - 23.9 Ovulation phase 0.1 - 12.0 First trimester 11.0 - 44.3 Second trimester 25.4 - 83.3 Third trimester 58.7 - 214.0 Postmenopausal 0.0 - 0.1 Performed at: [facility] [address] [place] [address] [id number] Java Designer: Alexis Ashton PhD, Phone: [phone] PERFORMED BY: [facility] [address] [place] [address] PATHOLOGIST PANELBOARD OPERATOR JORDI SMITH M.D. Performed By: #### P ANTHONY ####[facility] , Serum or plasma progesterone measurement (mass/volume)Ordered By: Brain Way on 10-01-2023 Progesterone [Mass/Vol] 0.9 ng/mL . [facility] Comment on above: Follicular phase 0.1 - 0.9 Luteal phase 1.8 - 23.9 Ovulation phase 0.1 - 12.0 First trimester 11.0 - 44.3 Second trimester 25.4 - 83.3 Third trimester 58.7 - 214.0 Postmenopausal 0.0 - 0.1Performed at: [facility] [address] [id number] Director: Alexis Ashton PhD, Phone: [phone] Ambulatory Visit Summaryon 0 09-29-2023 Ambulatory Visit [...] with DARWIN JONES CNP When: Where: [address] [place] [address] [place] [address]- Medications What How Much When Why Instructions New amoxicillin-clavulanate (Augmentin 875 mg oral tablet) 1 Tablets By Mouth Every 12 hours Sinusitis BMI 38.0-38.9,adult Duration: 10 Days Pickup at [facility] New methylPREDNISolone (Medrol Dosepack 4 mg Tab) 1 Packets By Mouth As Directed Sinusitis BMI 38.0-38.9,adult Duration: 6 Days as directed on package labeling Pickup at [facility] Unchanged citalopram (CeleXA 20 mg Tab) 1 Tablets By Mouth Every day Contact prescribing physician if questions or concerns Unchanged citalopram (citalopram 20 mg Tab) Contact prescribing physician if questions or concerns Unchanged pyridoxine (Vitamin B6 100 mg Tab) By Mouth Every day Contact prescribing physician if questions or concerns Pharmacy Information [facility]: [address] [id number] [phone] Allergies No Known Allergies No Known Medication [...] for choosing us for your care. Normal [facility] Family Medicine Office/Clini c Noteon 09-29-2023 [...] with voice recognition software. Occasional wrong-word or ?szbue-j-wdno? substitutions may have occurred due to the [...] with improvement. She does not use any cmjd-evh-cpegjrn Flonase and has not tried any other [...] day(s), # 20 tab(s), Refills(s) 0, Pharmacy: [facility], 170.2, cm, 09/29/23 10:44:00 EST, Height/Length Dosing, 112, kg, 09/29/23 10:44:00 EST, Weight Dosing methylPREDNISolone, = 1 packet(s), Oral, As Directed, as directed on package labeling, X 6 day(s), # 21 tab(s), Refills(s) 0, Pharmacy: [facility], 170.2, cm, 09/29/23 10:44:00 EST, Height/Length Dosing, 112, kg, 09/29/23 10:44:00 EST, Weight Dosing 2. BMI 38.0-38.9,adult (Z68.38: Body mass index [BMI] 38.0-38.9, adult) The standard range for ages 18 and olde (more content not included)... Normal [facility] Comment on above: Result Comment: Elec [...] ? Medicines that treat allergies (antihistamines). ? Rtqb-yop-nfekkag pain relievers. ? If caused by bacteria, [...] home: Medicines ? Take, use, or apply iobm-blq-qnqxpas and prescription medicines only as told by [...] and water are not available, use hand refining engineer. ? Do not smoke. Avoid being around people who are smoking (secondhand smoke). ? Keep all follow-up visits. This is important. Contact a health care provider if: ? You have a fever. ? Your symptoms get (more content not included)... Normal [facility] Noe [facility]2023 [facility] -- TAWNYA HERRING ([id number]) 1995 F Date Time Provider Department 07[facility]16[facility]23 [facility] During your visit today, we recorded the [...] Encounter Status:Closed by KENAN GOMEZ on 07/16/23 [facility] CNOVon 06-08-2023 CNOV Office Visit ([facility] ) -- TAWNYA HERRING ([id number]) 1995 F Date Time Provider Department 06/08/23 1:50 PM FRANCY GAN OTLARISSA During your visit today, we recorded the [...] will be in touch with results via Joberatorhart HPI: Tawnya is a 27 year old [...] Low Allergies (more content not included)... Normal [facility] Alanine aminotransferase [En zymatic activity/volume] in Serum or PlasmaOrdered By: Addi Ortega on 04-08-2023 ALT [Catalytic activity/Vol] 28 U/L 7-52 [facility] Albumin [Mass/volume] in Ser um or Plasma by Bromocresol green (BCG) dye binding methoOrdered By: Addi Ortega on 04-08-2023 Albumin BCG dye [Mass/Vol] 4.8 g/dL 3.5-5.7 [facility] Alkaline phosphatase [Enzyma tic activity/volume] in Serum or PlasmaOrdered By: Addi Ortega on 04-08-2023 ALP [Catalytic activity/Vol] 61 U/L 34-104 [facility] Aspartate aminotransferase [ Enzymatic activity/volume] in Serum or PlasmaOrdered By: Addi Ortega on 04-08-2023 AST [Catalytic activity/Vol] 13 U/L 13-39 [facility] Basophils Auto (Bld) [#/Vol] Ordered By: Addi Ortega on 04-08-2023 Basophils (Bld) [#/Vol] 0.0 10*3/uL 0.0-0.2 [facility] Basophils/100 WBC Auto (Bld) Ordered By: Addi Ortega on 04-08-2023 Basophils/100 WBC (Bld) 0.4 % . [facility] Bilirubin.total [Mass/volume ] in Serum or PlasmaOrdered By: Addi Ortega on 04-08-2023 Bilirubin [Mass/Vol] 0.4 mg/dL 0.3-1.0 [facility] Calcium [Mass/volume] in Ser um or PlasmaOrdered By: Addi Ortega on 04-08-2023 Calcium [Mass/Vol] 9.5 mg/dL 8.6-10.3 [facility] Carbon dioxide, total [Moles /volume] in Serum or PlasmaOrdered By: Addi Ortega on 04-08-2023 CO2 [Moles/Vol] 25.4 mmol/L 21.0-31.0 [facility] Chloride [Moles/volume] in S ghada or PlasmaOrdered By: Addi Ortega on 04-08-2023 Chloride [Moles/Vol] 106 mmol/L 98-107 [facility] Cholesterol [Mass/volume] in Serum or PlasmaOrdered By: Addi Ortega on 04-08-2023 Cholesterol [Mass/Vol] 162 mg/dL 140-200 [facility] Comment on above: Chol less than 200 m g/dl low riskChol 201-239 mg/dl borderline riskChol 240 mg/dl and greater high risk Cholesterol in LDL Calc [Mas s/Vol]Ordered By: Addi Ortega on 04-08-2023 Cholesterol in LDL [Mass/Vol] 99 mg/dL 0-100 [facility] Comment on above: LDL ATP III CLASSIFI CATIONLDL less than 100 mg/dL OptimalLDL 100-129 mg/dL Near or above optimalLDL 130-159 mg/dL Borderline highLDL 160-189 mg/dL HighLDL greater than 189 mg/dL Very high Cholesterol in VLDL Calc [Ma ss/Vol]Ordered By: Addi Ortega on 04-08-2023 Cholesterol in VLDL [Mass/Vol] 18 mg/dL [facility] Creatinine [Mass/volume] in Serum or PlasmaOrdered By: Addi Ortega on 04-08-2023 Creatinine [Mass/Vol] 0.59 mg/dL 0.60-1.20 [facility] Eosinophils Auto (Bld) [#/Vo l]Ordered By: Addi Ortega on 04-08-2023 Eosinophils (Bld) [#/Vol] 0.1 10*3/uL 0.0-0.45 [facility] Eosinophils/100 WBC Auto (Bl d)Ordered By: Addi Ortega on 04-08-2023 Eosinophils/100 WBC (Bld) 1.3 % . [facility] Erythrocyte distribution wid th Auto (RBC) [Ratio]Ordered By: Addi Ortega on 04-08-2023 Erythrocyte distribution width (RBC) [Ratio] 12.6 % 11.9-15.3 [facility] Globulin Calc (S) [Mass/Vol] Ordered By: Addi Ortega on 04-08-2023 Globulin (S) [Mass/Vol] 2.7 g/dL [facility] Glucose [Mass/volume] in Ser um or PlasmaOrdered By: Addi Ortega on 04-08-2023 Glucose [Mass/Vol] 83 mg/dL 70-100 [facility] Hematocrit Auto (Bld) [Volum e fraction]Ordered By: Addi Ortega on 04-08-2023 Hematocrit (Bld) [Volume fraction] 39.3 % 34.0-46.4 [facility] Hemoglobin [Mass/volume] in BloodOrdered By: Addi Ortega on 04-08-2023 Hemoglobin (Bld) [Mass/Vol] 13.6 g/dL 11.8-15.4 [facility] Leukocytes [#/volume] correc hamilton for nucleated erythrocytes in Blood by Automated counOrdered By: Addi Ortega on 04-08-2023 WBC corrected for nucl RBC Auto (Bld) [#/Vol] 7.6 10*3/uL 3.8-11.6 [facility] Lymphocytes Auto (Bld) [#/Vo l]Ordered By: Addi Ortega on 04-08-2023 Lymphocytes (Bld) [#/Vol] 2.9 10*3/uL 1.00-4.8 [facility] Lymphocytes/100 WBC Auto (Bl d)Ordered By: Addi Ortega on 04-08-2023 Lymphocytes/100 WBC (Bld) 38.6 % . [facility] MCH Auto (RBC) [Entitic mass ]Ordered By: Addi Ortega on 04-08-2023 MCH (RBC) [Entitic mass] 31.6 pg 24.7-34.3 [facility] MCHC Auto (RBC) [Mass/Vol]Or dered By: Addi Ortega on 04-08-2023 MCHC (RBC) [Mass/Vol] 34.5 g/dL 32.0-35.0 [facility] MCV Auto (RBC) [Entitic vol] Ordered By: Addi Ortega on 04-08-2023 MCV (RBC) [Entitic vol] 91.7 fL 80-100 [facility] Monocytes Auto (Bld) [#/Vol] Ordered By: Addi Ortega on 04-08-2023 Monocytes (Bld) [#/Vol] 0.4 10*3/uL 0.0-0.8 [facility] Monocytes/100 WBC Auto (Bld) Ordered By: Addi Ortega on 04-08-2023 Monocytes/100 WBC (Bld) 5.8 % . [facility] Neutrophils Auto (Bld) [#/Vo l]Ordered By: Addi Ortega on 04-08-2023 Neutrophils (Bld) [#/Vol] 4.1 10*3/uL 1.8-7.7 [facility] Neutrophils/100 WBC Auto (Bl d)Ordered By: Addi Ortega on 04-08-2023 Neutrophils/100 WBC (Bld) 53.9 % . [facility] No Panel InformationOrdered By: Addi Ortega on 04-08-2023 Estimated GFR (CKD-EPI) > 60.0 mL/Min [facility] Nicotine Metabolite Negative Cutoff=25 [facility] Comment on above: Performed at: [address] [id number] Director: Catherine Mendoza MD, Phone: [phone] Pharmacy Creatinine Clearance (Chem N/A [facility] Nucleated erythrocytes [Pres ence] in Blood by Automated countOrdered By: Addi Ortega on 04-08-2023 Nucleated RBC Auto Ql (Bld) 0.0 /100{WBC} 0-0.5 [facility] Platelet mean volume Auto (B ld) [Entitic vol]Ordered By: Addi Ortega on 04-08-2023 Platelet mean volume (Bld) [Entitic vol] 8.6 fL 6.3-10.7 [facility] Platelets Auto (Bld) [#/Vol] Ordered By: Addi Ortega on 04-08-2023 Platelets (Bld) [#/Vol] 361 10*3/uL 150-450 [facility] Potassium [Moles/volume] in Serum or PlasmaOrdered By: Addi Ortega on 04-08-2023 Potassium [Moles/Vol] 4.6 mmol/L 3.5-5.1 [facility] Protein [Mass/volume] in Ser um or PlasmaOrdered By: Addi Ortega on 04-08-2023 Protein [Mass/Vol] 7.5 g/dL 6.4-8.9 [facility] RBC Auto (Bld) [#/Vol]Ordere d By: Addi Ortega on 04-08-2023 RBC (Bld) [#/Vol] 4.29 10*6/uL 3.60-5.00 [facility] Serum or plasma albumin/glob ulin mass ratioOrdered By: Addi Ortega on 04-08-2023 Albumin/Globulin [Mass ratio] 1.8 {ratio} [facility] Serum or plasma anion gap de terminationOrdered By: Addi Ortega on 04-08-2023 Anion gap [Moles/Vol] 12.2 mmol/L 6.0-15.0 [facility] Serum or plasma high density lipoprotein (HDL) cholesterol measurementOrdered By: Addi Ortega on 04-08-2023 Cholesterol in HDL [Mass/Vol] 45 mg/dL 23-92 [facility] Comment on above: HDL CHOL ATP-III CLA SSIFICATION Cardiovascular RiskHDL > or equal to 60 mg/dL LOWHDL < 40 mg/dL HIGH Serum or plasma total choles terol/high density lipoprotein (HDL) cholesterol mass ratOrdered By: Addi Ortega on 04-08-2023 Cholesterol.total/Cho lesterol in HDL [Mass ratio] 3.6 {ratio} <5.0 [facility] Sodium [Moles/volume] in Ser um or PlasmaOrdered By: Addi Ortega on 04-08-2023 Sodium [Moles/Vol] 139 mmol/L 136-145 [facility] Thyrotropin [Units/volume] i n Serum or PlasmaOrdered By: Addi Ortega on 04-08-2023 TSH Qn 4.55 m[IU]/L 0.45-5.33 [facility] Triglyceride [Mass/volume] i n Serum or PlasmaOrdered By: Addi Ortega on 04-08-2023 Triglyceride [Mass/Vol] 92 mg/dL 0-149 [facility] Comment on above: TRIG ATP III CLASSIF ICATIONTRIG less than 150 mg/dL NormalTRIG 150-199 mg/dL Borderline highTRIG 200-500 mg/dL High TRIG greater than 500 mg/dL Very highStandard traceable to the Center for Disease Conrtrol and Prevention (CDC) test method. Urea nitrogen [Mass/volume] in Serum or PlasmaOrdered By: Addi Ortega on 04-08-2023 Urea nitrogen [Mass/Vol] 18 mg/dL 7-25 [facility] WBC Auto (Bld) [#/Vol]Ordere d By: Addi Ortega on 04-08-2023 WBC (Bld) [#/Vol] 7.6 10*3/uL 3.8-11.6 [facility] C Urineon 03-24-2023 Bacteria identified Cx Nom [...] Locations R1: This test was performed at: [facility], [address] [place] [address], [id number] , [place], Normal [facility] Comment on above: Performed By: #### 2 879161, [id number], [id number], 7109590, 7021799, [id number] #### [facility] [address] [place] [address] CT Abdomen/Pelvis w/o Contra ston 03-23-2023 CT [...] Oral contrast amount in ml's: 0 Normal [facility] Discharge Instructionson Discharge Instructions [id number]:127 Normal [facility] ED Note-Physicianon 03-23-20 ED Note-Physician Basic [...] any medications. States that she was at [facility], where she did wait about 5 [...] and Complexity of Problems Differential Diagnosis: [] [facility] Data External documents reviewed: [] My [...] day(s), # 28 cap(s), Refills(s) 0, Pharmacy: [facility], 170.2, cm, 03/22/23 20:14:00 EDT, Height/Length Dosing, 113.5, kg, 03/22/23 20:14:00 EDT, Weight Dosing ketorolac, 30 mg = 1 mL, Injection, IV Push, Once, Stop date 03/22/23 20:51:00 EDT, STAT, Start date 03/22/23 20:51:00 EDT, 03/22/23 20:51:00 EDT ondansetron, 4 mg = 2 mL, Injection, IV Push, Once, Stop date 03/22 (more content not included)... Normal [facility] Comment on above: Result Comment: Elec tronically Signed By: Hector Correa PA-C\.br\Date and Time Signed: 03/22/23 23:35 EDT\.br\Electronically Co-Signed By: Gabriel Curtis DO.br\Date and Time Co-Signed: 03/23/23 03:21 EDT RAD - Preliminary Cat Scan R eporton 03-23-2023 RAD - Preliminary Cat Scan Report [id number]:[id number] Normal [facility] Auto Diffon 03-22-2023 Basophils/100 WBC (Bld) 0.5 % Normal 0.0-2.0 [facility] Comment on above: Order Comment: Order Added by Discern Expert. Performed By: #### 2 188382, 0401579, 37520921, 3854871, 2888574, 0313790 #### [facility] [address] [place] [address] Basophils/Leukocytes Auto (Bld) [Pure # fraction] 0.0 E9/L Normal 0.0-0.2 [facility] Comment on above: Order Comment: Order Added by Discern Expert. Performed By: #### 2 066394, 8715524, 70468022, 6244469, 0149204, 3200364 #### [facility] [address] [place] [address] Eosinophils/100 WBC (Bld) 1.5 % Normal 0.0-8.0 [facility] Comment on above: Order Comment: Order Added by Mundo Expert. Performed By: #### 2 670202, 3266992, 91900718, 2083308, 5244610, 6241271 #### [facility] [address] [place] [address] Eosinophils/Leukocyte s Auto (Bld) [Pure # fraction] 0.1 E9/L Normal 0.0-0.5 [facility] Comment on above: Order Comment: Order Added by Mundo Expert. Performed By: #### 2 108394, 2266408, 74772455, 8158645, 3976150, 4705059 #### [facility] [address] [place] [address] Lymphocytes/100 WBC (Bld) 34.9 % Normal 14.0-50.0 [facility] Comment on above: Order Comment: Order Added by Mundo Expert. Performed By: #### 2 578609, 9272172, 69244693, 9763322, 6149040, 5244318 #### [facility] [address] [place] [address] Lymphocytes/Leukocyte s Auto (Bld) [Pure # fraction] 3.4 E9/L Normal 1.0-4.0 [facility] Comment on above: Order Comment: Order Added by Mundo Expert. Performed By: #### 2 269724, 2399348, 82569953, 7568932, 4413831, 4989622 #### [facility] [address] [place] [address] Monocytes/100 WBC (Bld) 6.0 % Normal 4.0-14.0 [facility] Comment on above: Order Comment: Order Added by Discern Expert. Performed By: #### 2 246453, 3790579, 95984509, 8661140, 1419611, 7330774 #### [facility] [address] [place] [address] Monocytes/Leukocytes Auto (Bld) [Pure # fraction] 0.6 E9/L Normal 0.2-1.0 [facility] Comment on above: Order Comment: Order Added by Discern Expert. Performed By: #### 2 062477, 0953694, 14755337, 5258714, 7418874, 3430067 #### [facility] [address] [place] [address] Neutrophils/100 WBC (Bld) 57.1 % Normal 36.0-75.0 [facility] Comment on above: Order Comment: Order Added by Discern Expert. Performed By: #### 2 578735, 0878883, 22687326, 4562333, 5483430, 7390375 #### [facility] [address] [place] [address] Neutrophils/Leukocyte s Auto (Bld) [Pure # fraction] 5.6 E9/L Normal 2.0-7.5 [facility] Comment on above: Order Comment: Order Added by Discern Expert. Performed By: #### 2 841664, 4858697, 87748120, 3716650, 3004239, 4518551 #### [facility] [address] [place] [address] BMPon 03-22-2023 Creatinine [Mass/Vol] 0.5 mg/dL Normal 0.5-1.3 [facility] Comment on above: Performed By: #### 2 673086, 2704111, 99874274, 4693560, 6385556, 2049231 #### [facility] [address] [place] [address] Urea nitrogen [Mass/Vol] 15 mg/dL Normal 5-21 [facility] Comment on above: Performed By: #### 2 020921, 5374218, 19819236, 5469234, 2930096, 8932399 #### [facility] [address] [place] [address] Urea nitrogen/Creatinine [Mass ratio] 30 No Units High 10-20 [facility] Comment on above: Performed By: #### 2 438540, 1626024, 70520814, 3463259, 9782921, 0408418 #### [facility] [address] [place] [address] Anion gap [Moles/Vol] 15 mmol/L Normal 6-16 [facility] Comment on above: Performed By: #### 2 599240, 3457008, 02736324, 8360390, 3691602, 0343596 #### [facility] [address] [place] [address] Calcium [Mass/Vol] 9.6 mg/dL Normal 8.9-11.1 [facility] Comment on above: Performed By: #### 2 154593, 3346006, 44306226, 3993926, 6908941, 6317664 #### [facility] [address] [place] [address] Chloride [Moles/Vol] 103 mmol/L Normal 101-111 [facility] Comment on above: Performed By: #### 2 486978, 8612945, 95245423, 8642434, 6859789, 9617111 #### [facility] [address] [place] [address] CO2 [Moles/Vol] 23 mmol/L Normal 21-31 [facility] Comment on above: Performed By: #### 2 684541, 9362506, 25490832, 6408052, 9048500, 7998305 #### [facility] [address] [place] [address] Glucose [Mass/Vol] 84 mg/dL Normal 55-199 [facility] Comment on above: Result Comment: If t his glucose result represents a fasting glucose, interpretation should refer to the following reference range: 55-99 mg/dL Performed By: #### 2 281362, 8350623, 74040893, 5692811, 2356208, 4938129 #### [facility] [address] [place] [address] Potassium [Moles/Vol] 3.7 mmol/L Normal 3.5-5.3 [facility] Comment on above: Performed By: #### 2 542976, 0615616, 14632411, 5987482, 0221093, 1109581 #### [facility] [address] [place] [address] Sodium [Moles/Vol] 137 mmol/L Normal 135-145 [facility] Comment on above: Performed By: #### 2 939838, 7023075, 93994874, 9870916, 8231185, 9505766 #### [facility] [address] [place] [address] CBC w/ Auto Diffon 3 Erythrocyte distribution width (RBC) [Ratio] 12.5 % Normal 10.9-14.2 [facility] Comment on above: Performed By: #### 2 279038, 5283966, 63966519, 7806665, 4744592, 5801199 #### [facility] [address] [place] [address] Hematocrit (Bld) [Volume fraction] 37.7 % Normal 34.0-46.0 [facility] Comment on above: Performed By: #### 2 080123, 7326456, 50025098, 8458304, 0304661, 7898072 #### [facility] [address] [place] [address] Hemoglobin (Bld) [Mass/Vol] 13.1 g/dL Normal 12.0-16.0 [facility] Comment on above: Performed By: #### 2 359571, 1917911, 91895655, 6105271, 2350750, 7463232 #### [facility] [address] [place] [address] MCH (RBC) [Entitic mass] 31.9 pg Normal 27.0-34.0 [facility] Comment on above: Performed By: #### 2 249760, 7546671, 71680408, 6447691, 2035249, 1832660 #### [facility] [address] [place] [address] MCHC (RBC) [Mass/Vol] 34.8 g/dL Normal 31.4-36.0 [facility] Comment on above: Performed By: #### 2 438380, 5750814, 67624731, 7225594, 7473827, 7664535 #### [facility] [address] [place] [address] MCV (RBC) [Entitic vol] 91.6 fL Normal 80.0-100.0 [facility] Comment on above: Performed By: #### 2 062739, 8203450, 05358389, 0583098, 7382592, 0641368 #### [facility] [address] [place] [address] Platelet mean volume (Bld) [Entitic vol] 7.6 fL Normal 6.4-10.8 [facility] Comment on above: Performed By: #### 2 969291, 7841112, 90202455, 9702942, 8492288, 3444866 #### [facility] [address] [place] [address] Platelets (Bld) [#/Vol] 306.0 E9/L Normal 150.0-500. 0 [facility] Comment on above: Performed By: #### 2 871087, 8445445, 67919527, 5703364, 6164908, 1892811 #### [facility] [address] [place] [address]53 RBC (Bld) [#/Vol] 4.1 E12/L Low 4.3-5.9 [facility] Comment on above: Performed By: #### 2 604010, 6779615, 33865468, 2026886, 0563405, 7647293 #### [facility] [address] [place] [address] WBC corrected for nucl RBC Auto (Bld) [#/Vol] 9.8 E9/L Normal 4.0-11.0 [facility] Comment on above: Performed By: #### 2 961880, 9451675, 35331850, 8274441, 9267646, 8646487 #### [facility] [address] [place] [address] CHEMISTRYOrdered By: SYSTEM SYSTEM on 03-22-2023 Albumin [...] 133 mL/min/1.73 m2 Normal >=59mL/min /1.73 m2 [facility] S Globulin (S) [Mass/Vol] 3.1 g/dL Normal 1.4 - 4.0 gm/dL [facility]isol Glucose [Mass/Vol] 84 mg/dL Normal 55 - 199 mg/dL [facility] Lipase [Catalytic activity/Vol] 28 U/L Normal 13 - 58 unit/L [facility] Potassium [Moles/Vol] 3.7 mmol/L Normal 3.5 - 5.3 mmol/L [facility] Protein [Mass/Vol] 7.3 g/dL Normal 6.0 - 7.8 gm/dL [facility] Sodium [Moles/Vol] 137 mmol/L Normal 135 - 145 mmol/L [facility] Urea nitrogen [Mass/Vol] 15 mg/dL Normal 5 - 21 mg/dL [facility] Urea nitrogen/Creatinine [Mass ratio] 30 mg/mg High 10 - 20 [facility] Remisol Consent for Treatmenton Consent for Treatment [id number] Normal [facility] ED Clinical Summaryon 2022 ED Clinical Summary (Inserted Image. Hayley ble to display) [place] [id number] ED Clinical Summary Person Information Name: TAWNYA HERRING Deysi/[facility] Age: 27 Years : 1995 Sex: Female Language: Lao PCP: DARWIN JONES CNP Marital Status: Single Phone: [phone] Visit Id: Visit Reason: Dysuria; Nausea; Flank [...] 03/22/2023 22:52:44 03/22/2023 22:52:44 03/22/2023 22:52:44 ADDRESS: [address] [place] [id number] PHYS DOC NOTES: MEDICAL INFORMATION: Prescriptions Given: New Medications [facility], [address] [phone], [phone] cephalexin (Keflex 500 mg Cap) 1 Capsules By Mouth every 6 hours for 7 Days. Refills: 0. Medications to Continue with No Changes Other Medications acetaminophen-hydrocodone ([place] 325 mg-5 mg oral tablet) 2 Tablets [...] EDUCATION INFORMATION: Instructions: Urinary Tract Infection, Adult, Xnve-fw-Rsdo Follow up: With: [facility]: [facility] [address] [facility] [place] [address] [phone] Business (1) In 3 days 03/25/2023 Comments: Follow-up with your primary care provider in 3 to 5 days. If symptoms worsen, do not improve, or new symptoms arise please report back to emergency department for further evaluation. DIAGNOSIS: UTI (urinary tract infection) Normal [facility] ED Patient Education Noteon 03-22-2023 ED [...] these instructions at home: Medicines ? Take oglb-bvl-lnkeden and prescription medicines only as told by [...] provider. Document Revised: 03/14/2021 Document Reviewed: 03/14/2021 [facility] Patient Education ? 2022 [employer]. Normal [facility] ED Patient Summaryon 023 ED Patient Summary (Inserted Image. Hayley ble to display) [place] [address] Patient Discharge Instructions Person Information Name: TAWNYA HERRING Age: 27 Years Arrival Date: 03/22/2023 19:52:37 Discharge Diagnosis: UTI (urinary tract infection) Primary Care Physician: DARWIN JONES CNP Provider Information Primary Provider: Gabriel Curtis DO Advanced Technical Assistance Consultant:None The exam and treatment you received in the Emergency Department were for an urgent problem and are not intended as complete care. It is important that you follow up with a doctor, nurse practitioner, or physician?s pediatric physician assistant for ongoing care. If your symptoms become worse or you do not improve as expected and you are unable to reach your usual health care provider, you should return to the Emergency Department. We are available 24 hours a day. BELIA HERRINGLEY Romie has been given the following list of patient education materials, prescriptions and follow-up instructions: Follow-up Instructions: With: Address: When: DARWIN JONES [address] [place] [phone] Business (1) In 3 days 03/25/2023 Comments: [...] Patient Education Materials: Urinary Tract Infection, Adult, Mwkf-vt-Aomp A MESSAGE TO ALL PATIENTS REGARDING OPIOIDS PRESCRIPTION OPIOIDS: WHAT YOU NEED TO KNOW Prescription opioids can be used to help relieve gkcswqlt-kz-hhgumb pain and are often prescribed following a [...] of op (more content not included)... Normal [facility] HEMATOLOGYOrdered By: SYSTEM SYSTEM on 03-22-2023 Basophils/100 WBC (Bld) 0.5 % Normal 0.0 - 2.0 % [facility] HemeAutoSS Basophils/Leukocytes Auto (Bld) [Pure # fraction] [...] 5.6 E9/L Normal 2.0 - 7.5 E9/L [facility]eAutoSS HEMATOLOGYOrdered By: Barrington Maxwell on 03-22-2023 [...] 91.6 fL Normal 80.0 - 100.0 fL [facility] HemeAutoSS Platelet mean volume (Bld) [Entitic vol] 7.6 fL Normal 6.4 - 10.8 fL [facility] HemeAutoSS Platelets (Bld) [#/Vol] 306.0 E9/L Normal 150.0 - 500.0 E9/L [facility] HemeAutoSS RBC (Bld) [#/Vol] 4.1 E12/L Low 4.3 - 5.9 E12/L [facility] HemeAutoSS WBC corrected for nucl RBC Auto (Bld) [#/Vol] 9.8 E9/L Normal 4.0 - 11.0 E9/L [facility] HemeAutoSS Hep Func Panelon 03-22-2023 Albumin [Mass/Vol] 4.2 g/dL Normal 3.3-5.0 [facility] Comment on above: Performed By: #### 2 002714, 7361671, 77245603, 1711177, 2279030, 5325174 #### [facility] [address] [place] [address] Albumin/Globulin (S) [Mass conc ratio] 1.4 Normal 1.1-2.2 [facility] Comment on above: Performed By: #### 2 215579, 5983370, 18801785, 7192088, 6688275, 0179514 #### [facility] [address] [place], [place] [address] ALP [Catalytic activity/Vol] 54 Int._Unit/L Normal 21-98 [facility] Comment on above: Performed By: #### 2 565928, 5128348, 34496410, 4769861, 4096031, 4177706 #### [facility] [address] [place] [address] ALT No additional P-5'-P [Catalytic activity/Vol] 24 Int._Unit/L Normal 6-46 [facility] Comment on above: Performed By: #### 2 958820, 1605203, 67833008, 6458493, 3873710, 6453662 #### [facility] [address] [place], [place] [address] AST [Catalytic activity/Vol] 18 Int._Unit/L Normal 5-43 [facility] Comment on above: Performed By: #### 2 357525, 4310922, 60837283, 2522711, 8016642, 4192175 #### [facility] [address] [place] [address] Bilirubin [Mass/Vol] 0.7 mg/dL Normal 0.0-1.1 [facility] Comment on above: Performed By: #### 2 262108, 1473937, 42785106, 9870178, 7228355, 8726747 #### [facility] [address] [place] [address] Bilirubin.direct [Mass/Vol] 0.1 mg/dL Normal 0.1-0.4 [facility] Comment on above: Performed By: #### 2 033731, 6850366, 01967600, 0870406, 3569791, 3158933 #### [facility] [address] [place] [address] Bilirubin.indirect [Mass or moles/Vol] 0.6 mg/dL Normal 0.1-0.9 [facility] Comment on above: Performed By: #### 2 424715, 0076537, 62097743, 7732883, 5299925, 0498716 #### [facility] [address] [place] [address] Globulin (S) [Mass/Vol] 3.1 g/dL Normal 1.4-4.0 [facility] Comment on above: Performed By: #### 2 485227, 5284825, 68085114, 1547849, 4868910, 5353499 #### [facility] [address] [place] [address] Protein [Mass/Vol] 7.3 g/dL Normal 6.0-7.8 [facility] Comment on above: Performed By: #### 2 760653, 2621473, 48246797, 5150576, 4233747, 3699256 #### [facility] [address] [place] [address] Lipase Levelon 03-22-2023 Lipase [Catalytic activity/Vol] 28 U/L Normal 13-58 [facility] Comment on above: Performed By: #### 2 630681, 7055826, 77048644, 6955408, 1319854, 0357310 #### [facility] [address] [place] [address] SEROLOGYOrdered By: Lucina Shaikh on 03-22-2023 HCG.beta subunit (U) [Moles/Vol] Negative Normal [facility] Man Sero U BetaHcg Qualon 03-22-2023 HCG.beta subunit (U) [Moles/Vol] Negative Normal [facility] Comment on above: Performed By: #### 2 510385, 8022905, 32107427, 8287084, 9100102, 9803408 #### [facility] [address] [place] [address] UA With Cult Reflexon 2022 Bacteria LM Ql (Urine sed) TRACE Normal Trace [facility] Comment on above: Performed By: #### 2 766729, 7289782, 35335190, 3125080, 9533908, 7365095 #### [facility] [address] [place] [address] Bilirubin Ql (U) Negative Normal Negative [facility] Comment on above: Performed By: #### 2 896411, 4494987, 37191375, 7114384, 2555292, 1876856 #### [facility] [address] [place] [address] Clarity (U) SL CLOUDY Abnormal Clear [facility] Comment on above: Performed By: #### 2 734312, 7349657, 55081513, 9593130, 8046315, 0264122 #### [facility] [address] [place] [address] Color (U) YELLOW Normal Yellow [facility] Comment on above: Performed By: #### 2 488571, 9039931, 25812536, 3134762, 4384801, 7135176 #### [facility] [address] [place] [address] Crystals LM Ql (Urine sed) Present Normal [facility] Comment on above: Performed By: #### 2 187057, 4240959, 46792368, 4643027, 2000945, 8072426 #### [facility] [address] [place] [address] Epithelial cells.squamous LM.HPF (Urine sed) [#/Area] 0-2 Normal 0-2 [facility] Comment on above: Performed By: #### 2 789642, 8184796, 18830089, 1071680, 4418181, 3825138 #### [facility] [address] [place] [address] Glucose Test strip (U) [Mass/Vol] Negative Normal Negative [facility] Comment on above: Performed By: #### 2 903020, 8492228, 18395053, 3815137, 0197301, 8632044 #### [facility] [address] [place] [address] Hemoglobin Ql (U) 2+ Abnormal Negative [facility] Comment on above: Performed By: #### 2 670165, 3943415, 65148152, 4278614, 3559615, 7570517 #### [facility] [address] [place] [address] Ketones (U) [Mass/Vol] 1+ Abnormal Negative [facility] Comment on above: Performed By: #### 2 871858, 1613064, 48012740, 7370563, 0296529, 3974016 #### [facility] [address] [place] [address] Hartley.plasma/Lithiu m.RBC (Bld) [Mass ratio] 0-3 Normal 0-3 [facility] Comment on above: Performed By: #### 2 786018, 8803129, 65322295, 7537545, 1076312, 0060220 #### [facility] [address] [place] [address] Mucus Ql (Urine sed) TRACE Normal [facility] Comment on above: Performed By: #### 2 184562, 4445365, 72134128, 8584577, 6063404, 7710349 #### [facility] [address] [place] [address] Nitrite Ql (U) Negative Normal Negative [facility] Comment on above: Performed By: #### 2 289368, 8945773, 79242666, 8776673, 5929343, 5201081 #### [facility] [address] [place] [address] pH (U) 5.5 [pH] Invalid Interpretation Code 5.0-9.0 [facility] Comment on above: Performed By: #### 2 156357, 2786821, 33421445, 7285618, 0713937, 3428569 #### [facility] [address] [place] [address] Protein (U) [Mass/Vol] Negative Normal Negative [facility] Comment on above: Performed By: #### 2 049999, 2685229, 81884442, 7277024, 5700919, 9117886 #### [facility] [address] [place], [place] [address] Specific gravity (U) [Rel density] >=1.030 Invalid Interpretation Code 1.005-1.03 0 [facility] Comment on above: Performed By: #### 2 204961, 2807563, 73603417, 8735390, 6452646, 5854215 #### [facility] [address] [place] [address] Type of Urine collection method Clean Catch Normal [facility] Comment on above: Performed By: #### 2 911513, 5273079, 54367871, 1600988, 7828409, 5211138 #### [facility] [address] [place], [place] [address] Urobilinogen Qn (U) 0.2 {Aly'U}/dL Normal 0.0-1.0 [facility] Comment on above: Performed By: #### 2 983948, 3908466, 73591420, 1353723, 7653652, 8754102 #### [facility] [address] [place] [address] WBC Auto Ql (U) 2+ Abnormal Negative [facility] Comment on above: Performed By: #### 2 332956, 7478698, 89950534, 5406460, 8559898, 0344111 #### [facility] [address] [place], [place] [address] WBC LM.HPF (Urine sed) [#/Area] 16-25 Abnormal 0-5 [facility] Comment on above: Performed By: #### 2 747289, 6933890, 45060266, 6237563, 2522168, 4609168 #### [facility] [address] [place] [address] URINALYSISOrdered By: Elizabeth Shaikh on 03-22-2023 Bacteria [...] Interpretation Code Negative [facility] UA Auto SS Hartley.plasma/Lithiu m.RBC (Bld) [Mass ratio] 0-3 /HPF Normal [...] [facility] UA Auto SS Urobilinogen Qn (U) 0.8637318 {Aly'U}/dL Normal 0.0 - 1.0 EU/dL [facility] UA Auto SS WBC Auto Ql (U) 2+ *ABN* (03/22/23 8:17 PM) Invalid Interpretation Code Negative [facility] UA Auto SS WBC LM.HPF (Urine sed) [#/Area] 16-25 /HPF Invalid Interpretation Code 0-5/HPF [facility] UA Auto SS eGFRon 03-22-2023 GFR/1.73 sq M.predicted among non-blacks MDRD (S/P/Bld) [Vol rate/Area] 133 mL/min/1.73 m2 Normal >=59 [facility] Comment on above: Order Comment: Order added by Discern Expert. Result Comment: Nut Blanker Operator vinh kidney disease could be indicated at eGFR's of less than 60 mL/min/1.73m2. Kidney failure is indicated at less than 15 mL/min/1.73m2. Performed By: #### 2 152560, 9660000, 80766617, 7893355, 5881186, 2161779 #### [facility] [address] [place] [address] Alanine aminotransferase [En zymatic activity/volume] in Serum or PlasmaOrdered By: Zurdo Ortega on 02-28-2023 ALT [Catalytic activity/Vol] 21 U/L [facility] HIV 1 and HIV-2 antibody ass ay with HIV-1 p24 antigen detectionOrdered By: Zurdo Ortega on 02-28-2023 HIV 1+2 Ab+HIV1 p24 Ag IA Ql Non-Reactive Non Reactive [facility] Comment on above: HIV NegativeHIV-1/HI V-2 antibodies and HIV-1 p24 antigen were NOTdetected. There is no laboratory evidence of HIV infection. Hepatitis B virus surface Ag [Presence] in Serum or Plasma by ImmunoassayOrdered By: Zurdo Ortega on 02-28-2023 HBV surface Ag IA Ql Negative Negative [facility] Comment on above: Performed at: [address] [id number] Director: Alexis Ashton PhD, Phone: [phone] Hepatitis C virus IgG Ab [Pr esence] in Serum or Plasma by ImmunoassayOrdered By: Zurdo Ortega on 02-28-2023 HCV IgG IA Ql Non-Reactive Non Reactive [facility] No Panel InformationOrdered By: Zurdo Ortega on 02-28-2023 Hepatitis C Interpretation See comment . [facility] Comment on above: Not infected with HC V unless early or acute infection issuspected (which may be delayed in an immunocompromisedindividual), or other evidence exists to indicate HCVinfection. Serum hepatitis B virus surf nikolas antibody detectionOrdered By: Zurdo Ortega on 02-28-2023 HBV surface Ab Ql (S) Reactive . [facility] Comment on above: Non Reactive: Incons istent with immunity, less than 10 mIU/mL Reactive: Consistent with immunity, greater than 9.9 mIU/mL PAP ACOG PANEL 2: 21 to 29on 12-17-2022 . . Normal [facility] Comment on above: Performed By: #### 4 196115 #### [facility] [address] [place] [address] [address] Regine Fortune Age Gdln ACOG Testing - Normal [facility] Comment on above: Performed By: #### 4 004836 #### [facility] [address] [place] [address] [address] Regine Fortune DIAGNOSIS: Comment [facility] Comment on above: Result Comment: NEGA TIVE FOR INTRAEPITHELIAL LESION OR MALIGNANCY. Performed By: #### 4 902856 #### [facility] [address] [place] [address] [address] Regine Fortune Methodology: Comment [facility] Comment on above: Result Comment: This liquid based ThinPrep(R) pap test was screened with the use of an image guided system. Performed By: #### 4 788163 #### [facility] [address] [place] [address] [address] Regine Fortune Note: Comment [facility] Comment on above: Result Comment: The Pap smear is a screening test designed to aid in the detection of premalignant and malignant conditions of the uterine cervix. It is not a diagnostic procedure and should not be used as the sole means of detecting cervical cancer. Both false-positive and false-negative reports do occur. . Performed By: #### 4 173760 #### [facility] [address] [place] [address] [address] Regine Fortune Performed by: Comment Normal [facility] Comment on above: Result Comment: Amna Hernandes Contact Printer Dry Film (ASCP) Performed By: #### 4 715709 #### [facility] [address] [place] [address] [address] Regine Fortune Reflex Criteria: Comment Normal [facility] Comment on above: Result Comment: The HPV DNA reflex criteria were not met with this specimen result therefore, no HPV testing was performed. . Performed By: #### 4 [id number] #### [facility] [address] [place] [address] [address] Regine Fortune Specimen adequacy: Comment Normal [facility] Comment on above: Result Comment: Sati sfactory for evaluation. Endocervical and/or squamous metaplastic cells (endocervical component) are present. Areas of partially obscuring inflammatory exudate are present. Performed By: #### 4 815405 #### [facility] [address] [place] [address] [address] Regine Fortune Thyrotropin [Units/volume] i n Serum or PlasmaOrdered By: Brain Way on 12-10-2022 TSH Qn 2.86 m[IU]/L 0.45-5.33 [facility] Thyroxine (T4) free [Mass/vo lume] in Serum or PlasmaOrdered By: Brain Way on 12-10-2022 Free T4 [Mass/Vol] 0.94 ng/dL 0.61-1.12 [facility] Albumin [Mass/volume] in Ser um or PlasmaOrdered By: Ofelia Hester on 10-16-2022 Albumin [Mass/Vol] 4.1 g/dL 3.2-5.5 [facility] Alkaline phosphatase [Enzyma tic activity/volume] in Serum or PlasmaOrdered By: Ofelia Hester on 10-16-2022 ALP [Catalytic activity/Vol] 56 U/L 32-92 [facility] Amylaseon 03-03-2023 Amylase 43 U/L Normal 28-100 U/L [facility] Other Amylase [Enzymatic activity/ volume] in Serum or PlasmaOrdered By: Ofelia Hester on 10-16-2022 Amylase [Catalytic activity/Vol] 43 U/L 28-100 [facility] Aspartate aminotransferase [ Enzymatic activity/volume] in Serum or PlasmaOrdered By: Ofelia Hester on 10-16-2022 AST [Catalytic activity/Vol] 16 U/L 10-42 [facility] Bilirubin.total [Mass/volume ] in Serum or PlasmaOrdered By: Ofelia Hester on 10-16-2022 Bilirubin [Mass/Vol] 0.6 mg/dL 0.3-1.2 [facility] Calcium [Mass/volume] in Ser um or PlasmaOrdered By: Ofelia Hester on 10-16-2022 Calcium [Mass/Vol] 9.3 mg/dL 8.2-10.2 [facility] Carbon dioxide, total [Moles /volume] in Serum or PlasmaOrdered By: Ofelia Hester on 10-16-2022 CO2 [Moles/Vol] 22.1 mmol/L 22.0-30.0 [facility] Chloride [Moles/volume] in S ghada or PlasmaOrdered By: Ofelia Hester on 10-16-2022 Chloride [Moles/Vol] 105 mmol/L 95-114 [facility] Comprehensive Metabolic Pane samy 10-16-2022 Albumin [Mass/Vol] 4.654169 g/dL Normal 3.2-5.5 g/dL [facility] Other ALT [Catalytic activity/Vol] 17 U/L Normal 10-60 U/L [facility] Other Bilirubin [Mass/Vol] 0.0821898 mg/dL Normal 0.3- 1.2 mg/dL [facility] Other Calcium [Mass/Vol] 9.0088988 mg/dL Normal 8.2-10 .2 mg/dL [facility] Other CO2 [Moles/Vol] 22.79570176 mmol/L Normal 22.0-3 0.0 mmol/L [facility] Other Creatinine [Mass/Vol] 0.94045694 mg/dL Normal 0. 44-1.03 mg/dL [facility] Other Potassium [Moles/Vol] 4.59655074 mmol/L Normal 3 .5-5.1 mmol/L [facility] Other Protein [Mass/Vol] 6.575931 g/dL Normal 6.1-7.9 g/dL [facility] Other Comprehensive Metabolic Panel > 60 [facility] Other Comprehensive Metabolic Panel 2.5 g/dL [facility] Other Creatinine and Glomerular fi ltration rate.predicted panel (S/P/Bld)Ordered By: Ofelia Hester on 10-16-2022 Creatinine [Mass/Vol] 0.55 mg/dL 0.44-1.03 [facility] Estimated glomerular filtrat ion rate (GFR) non- AmericanOrdered By: Ofelia Hester on 10-16-2022 GFR/1.73 sq M.predicted among non-blacks MDRD (S/P/Bld) [Vol rate/Area] > 60 mL/Min [facility] Globulin Calc (S) [Mass/Vol] Ordered By: Ofelia Hester on 10-16-2022 Globulin (S) [Mass/Vol] 2.5 g/dL [facility] Glucose [Mass/volume] in Ser um or PlasmaOrdered By: Ofelia Hester on 10-16-2022 Glucose [Mass/Vol] 86 mg/dL 70-100 [facility] Comment on above: ADA recommended refe rence rangeRandom Glucose Reference Range is dependent on time and content of last meal. Glucose of more than 200 mg/dL in a nonstressed, ambulatory subject supports the diagnosis of Diabetes Mellitus. Laboratory - Chemistry and C hemistry - challengeOrdered By: Ofelia Hester on 10-16-2022 Lipase [Catalytic activity/Vol] 35.0 U/L 22-51 [facility] Lipaseon 10-16-2022 Lipase [Catalytic activity/Vol] 35.50394 U/L Normal 22-51 U/L [facility] Other No Panel InformationOrdered By: Ofelia Hester on 10-16-2022 Estimated GFR () > 60 mL/Min [facility] Comment on above: GFR estimated refere nce range: According to KDOQI guidelines, <60 ml/min/1.73m2 is sufficient to diagnose a patient with chronic kidney disease. Pharmacy Creatinine Clearance (Chem N/A [facility] Potassium [Moles/volume] in Serum or PlasmaOrdered By: Ofelia Hester on 10-16-2022 Potassium [Moles/Vol] 4.3 mmol/L 3.5-5.1 [facility] Protein [Mass/volume] in Ser um or PlasmaOrdered By: Ofelia Hester on 10-16-2022 Protein [Mass/Vol] 6.6 g/dL 6.1-7.9 [facility] Serum or plasma alanine galaviz otransferase measurement without P-5'-P (enzymatic activiOrdered By: Ofelia Hester on 10-16-2022 ALT No additional P-5'-P [Catalytic activity/Vol] 17 U/L 10-60 [facility] Serum or plasma albumin/glob ulin mass ratioOrdered By: Ofelia Hester on 10-16-2022 Albumin/Globulin [Mass ratio] 1.6 {ratio} [facility] Serum or plasma anion gap de terminationOrdered By: Ofelia Hester on 10-16-2022 Anion gap [Moles/Vol] 13.2 mmol/L 6.0-15.0 [facility] Sodium [Moles/volume] in Ser um or PlasmaOrdered By: Ofelia Hester on 10-16-2022 Sodium [Moles/Vol] 136 mmol/L 136-146 [facility] Urea nitrogen [Mass/volume] in Serum or PlasmaOrdered By: Ofelia Hester on 10-16-2022 Urea nitrogen [Mass/Vol] 11 mg/dL 05-08 [facility] T4 FREE/FREE THYROXon 2021 Free T4 [Mass/Vol] 1.3 ng/dL 0.9 - 1.7 ng/dL [facility] TSH BLDon 07-14-2022 TSH Qn 2.480 m[IU]/L 0.270 - 4.200 mIU/L [facility] VITAMIN B12 BLOODon 07-14-20 Cobalamin (Vitamin B12) [Mass/Vol] 267 pg/mL 232 - 1,245 pg/mL [facility] Quick Fluon 06-04-2022 FLUAV Ab CF (S) [Titer] Negative [facility] Other FLUBV Ab CF (S) [Titer] Negative [facility] Other Quick Strepon 06-04-2022 S. pyogenes Org specific cx Ql (Throat) Negative [facility] Other Quick Strep [facility] Other SARS-CoV-2 (COVID-19) RNA NA A+probe Ql (Resp)on 06-04-2022 SARS-CoV-2 (COVID-19) RNA LAUREN+probe Ql (Unsp spec) Negative [facility] Other TSH DL <= 0.005 mIU/L QnOrde red By: Darwin Jones on 04-14-2022 TSH Qn 6.39 m[IU]/L 0.45-5.33 [facility] Thyroxine (T4) free [Mass/vo lume] in Serum or PlasmaOrdered By: Darwin Jones on 04-14-2022 Free T4 [Mass/Vol] 0.82 ng/dL 0.61-1.12 [facility] Triiodothyronine (T3) Free [ Mass/volume] in Serum or PlasmaOrdered By: Darwin Jones on 04-14-2022 Free T3 [Mass/Vol] 4.08 pg/mL 2.50-3.90 [facility] Serum or plasma calcium luis urement (mass/volume)Ordered By: Saad Valera on 04-06-2022 Calcium [Mass/Vol] 9.4 mg/dL 8.2-10.2 [facility] Serum or plasma intact parat hyroid hormone measurement (mass/volume)Ordered By: Saad Valera on 04-06-2022 Parathyrin.intact [Mass/Vol] 54.8 pg/mL 12 [facility] CHEMISTRYOrdered By: Orion ROP User on 02-18-2022 Glucose [Mass/Vol] 106 mg/dL High 55 - 99 mg/dL [facility] [place] POC Subsection Comment on above: Result Comment: Aurelia breana Meter POC Device SN [id number] Invalid Interpretation Code [facility] [place] POC Subsection POC User ID [id number] Invalid Interpretation Code [facility] [place] POC Subsection POC Username OBINNA EPPERSON Invalid Interpretation Code [facility] [place] POC Subsection Serum or plasma thyroglobuli n antibody assay (units/volume)Ordered By: Darwin Jones on 02-13-2022 Thyroglobulin Ab Qn 971.2 [IU]/mL 0.0-0.9 [facility] Comment on above: Thyroglobulin Antibo dy measured by Total Boox Methodology Performed at: - [facility] [id number] Java Designer: Alexis Ashton PhD, Phone: [phone] Serum or plasma thyroperoxid ase antibody assay (units/volume)Ordered By: Darwin Jones on 02-13-2022 TPO Ab Qn 327 [IU]/mL 0-34 [facility] Thyroxine (T4) free [Mass/vo lume] in Serum or PlasmaOrdered By: Darwin Jones on 02-13-2022 Free T4 [Mass/Vol] 0.66 ng/dL 0.61-1.12 [facility] Triiodothyronine (T3) Free [ Mass/volume] in Serum or PlasmaOrdered By: Darwin Jones on 02-13-2022 Free T3 [Mass/Vol] 4.04 pg/mL 2.50-3.90 [facility] Albumin [Mass/volume] in Ser um or PlasmaOrdered By: Addi Ortega on 02-10-2022 Albumin [Mass/Vol] 4.1 g/dL 3.2-5.5 [facility] Basophils Auto (Bld) [#/Vol] Ordered By: Addi Ortega on 02-10-2022 Basophils (Bld) [#/Vol] 0.0 10*3/uL 0.0-0.2 [facility] Basophils/100 WBC Auto (Bld) Ordered By: Addi Ortega on 02-10-2022 Basophils/100 WBC (Bld) 0.4 % . [facility] Blood hemoglobin measurement (mass/volume)Ordered By: Addi Ortega on 02-10-2022 Hemoglobin (Bld) [Mass/Vol] 14.1 g/dL 11.8-15.4 [facility] Blood leukocytes automated c ount (number/volume)Ordered By: Addi Ortega on 02-10-2022 WBC (Bld) [#/Vol] 7.3 10*3/uL 4.5-11.0 [facility] Cholesterol [Mass/volume] in Serum or PlasmaOrdered By: Addi Ortega on 02-10-2022 Cholesterol [Mass/Vol] 195 mg/dL 140-200 [facility] Comment on above: Chol less than 200 m g/dl low risk Chol 201-239 mg/dl borderline risk Chol 240 mg/dl and greater high risk Cholesterol in LDL Calc [Mas s/Vol]Ordered By: Addi Ortega on 02-10-2022 Cholesterol in LDL [Mass/Vol] 113 mg/dL 0-100 [facility] Comment on above: LDL ATP III CLASSIFI CATION LDL less than 100 mg/dL Optimal LDL 100-129 mg/dL Near or above optimal LDL 130-159 mg/dL Borderline high LDL 160-189 mg/dL High LDL greater than 189 mg/dL Very high Cholesterol in VLDL Calc [Ma ss/Vol]Ordered By: Addi Ortega on 02-10-2022 Cholesterol in VLDL [Mass/Vol] 26 mg/dL [facility] Creatinine and Glomerular fi ltration rate.predicted panel (S/P/Bld)Ordered By: Addi Ortega on 02-10-2022 Creatinine [Mass/Vol] 0.71 mg/dL 0.44-1.03 [facility] Eosinophils Auto (Bld) [#/Vo l]Ordered By: Addi Ortega on 02-10-2022 Eosinophils (Bld) [#/Vol] 0.1 10*3/uL 0.0-0.45 [facility] Eosinophils/100 WBC Auto (Bl d)Ordered By: Addi Ortega on 02-10-2022 Eosinophils/100 WBC (Bld) 1.5 % . [facility] Erythrocyte distribution wid th Auto (RBC) [Ratio]Ordered By: Addi Ortega on 02-10-2022 Erythrocyte distribution width (RBC) [Ratio] 14.0 % 11.9-15.3 [facility] Estimated glomerular filtrat ion rate (GFR) non- AmericanOrdered By: Addi Ortega on 02-10-2022 GFR/1.73 sq M.predicted among non-blacks MDRD (S/P/Bld) [Vol rate/Area] > 60 mL/Min [facility] Globulin Calc (S) [Mass/Vol] Ordered By: Addi Ortega on 02-10-2022 Globulin (S) [Mass/Vol] 2.8 g/dL [facility] Hematocrit Auto (Bld) [Volum e fraction]Ordered By: Addi Ortega on 02-10-2022 Hematocrit (Bld) [Volume fraction] 40.3 % 34.0-46.4 [facility] Laboratory - Chemistry and C hemistry - challengeOrdered By: Addi Ortega on 02-10-2022 Glucose [Mass/Vol] 90 mg/dL 70-100 [facility] Laboratory - Hematology and Cell countsOrdered By: Addi Ortega on 02-10-2022 Nucleated RBC/100 WBC (Bld) [Ratio] 0.1 % 0-0.5 [facility] Lymphocytes Auto (Bld) [#/Vo l]Ordered By: Addi Ortega on 02-10-2022 Lymphocytes (Bld) [#/Vol] 3.3 10*3/uL 1.00-4.8 [facility] Lymphocytes/100 WBC Auto (Bl d)Ordered By: Addi Ortega on 02-10-2022 Lymphocytes/100 WBC (Bld) 45.2 % . [facility] MCH Auto (RBC) [Entitic mass ]Ordered By: Addi Ortega on 02-10-2022 MCH (RBC) [Entitic mass] 33.0 pg 24.7-34.3 [facility] MCHC Auto (RBC) [Mass/Vol]Or dered By: Addi Ortega on 02-10-2022 MCHC (RBC) [Mass/Vol] 34.9 g/dL 32.0-35.0 [facility] MCV Auto (RBC) [Entitic vol] Ordered By: Addi Ortega on 02-10-2022 MCV (RBC) [Entitic vol] 94.6 fL 80-100 [facility] Monocyte %Ordered By: Addi Ortega on 02-10-2022 Monocyte % 134 mg/dL 35-149 [facility] Comment on above: TRIG ATP III CLASSIF ICATION TRIG less than 150 mg/dL Normal TRIG 150-199 mg/dL Borderline high TRIG 200-500 mg/dL High TRIG greater than 500 mg/dL Very high Standard traceable to the Center for Disease Conrtrol and Prevention (CDC) test method. Monocytes Auto (Bld) [#/Vol] Ordered By: Addi Ortega on 02-10-2022 Monocytes (Bld) [#/Vol] 0.5 10*3/uL 0.0-0.8 [facility] Monocytes/100 WBC Auto (Bld) Ordered By: Addi Ortega on 02-10-2022 Monocytes/100 WBC (Bld) 6.3 % . [facility] Neutrophils Auto (Bld) [#/Vo l]Ordered By: Addi Ortega on 02-10-2022 Neutrophils (Bld) [#/Vol] 3.4 10*3/uL 1.8-7.7 [facility] Neutrophils/100 WBC Auto (Bl d)Ordered By: Addi Ortega on 02-10-2022 Neutrophils/100 WBC (Bld) 46.6 % . [facility] No Panel InformationOrdered By: Addi Ortega on 02-10-2022 Estimated GFR () > 60 mL/Min [facility] Comment on above: GFR estimated refere nce range: According to KDOQI guidelines, <60 ml/min/1.73m2 is sufficient to diagnose a patient with chronic kidney disease. Nicotine Metabolite Negative Cutoff=25 [facility] Comment on above: Performed at: [address] [id number] Java Designer: Catherine Mendoza MD, Phone: [phone] Pharmacy Creatinine Clearance (Chem N/A [facility] Platelet mean volume Auto (B ld) [Entitic vol]Ordered By: Addi Ortega on 02-10-2022 Platelet mean volume (Bld) [Entitic vol] 8.4 fL 6.3-10.7 [facility] Platelets Auto (Bld) [#/Vol] Ordered By: Addi Ortega on 02-10-2022 Platelets (Bld) [#/Vol] 321 10*3/uL 150-450 [facility] Protein [Mass/volume] in Ser um or PlasmaOrdered By: Addi Ortega on 02-10-2022 Protein [Mass/Vol] 6.9 g/dL 6.1-7.9 [facility] RBC Auto (Bld) [#/Vol]Ordere d By: Addi Ortega on 02-10-2022 RBC (Bld) [#/Vol] 4.26 10*6/uL 3.60-5.00 [facility] Serum or plasma alanine galaviz otransferase measurement without P-5'-P (enzymatic activiOrdered By: Addi Ortega on 02-10-2022 ALT No additional P-5'-P [Catalytic activity/Vol] 26 U/L 10-60 [facility] Serum or plasma albumin/glob ulin mass ratioOrdered By: Addi Ortega on 02-10-2022 Albumin/Globulin [Mass ratio] 1.5 {ratio} [facility] Serum or plasma alkaline hosea sphatase measurement (enzymatic activity/volume)Ordered By: Addi Ortega on 02-10-2022 ALP [Catalytic activity/Vol] 47 U/L 32-92 [facility] Serum or plasma aspartate am inotransferase measurement (enzymatic activity/volume)Ordered By: Addi Ortega on 02-10-2022 AST [Catalytic activity/Vol] 18 U/L 10-42 [facility] Serum or plasma calcium luis urement (mass/volume)Ordered By: Addi Ortega on 02-10-2022 Calcium [Mass/Vol] 9.3 mg/dL 8.2-10.2 [facility] Serum or plasma chloride radha surement (moles/volume)Ordered By: Addi Ortega on 02-10-2022 Chloride [Moles/Vol] 99 mmol/L 95-114 [facility] Serum or plasma high density lipoprotein (HDL) cholesterol measurementOrdered By: Addi Ortega on 02-10-2022 Cholesterol in HDL [Mass/Vol] 55 mg/dL 35-85 [facility] Comment on above: HDL CHOL ATP-III CLA SSIFICATION Cardiovascular Risk HDL > or equal to 60 mg/dL LOW HDL < 40 mg/dL HIGH Serum or plasma potassium me asurement (moles/volume)Ordered By: Addi Ortega on 02-10-2022 Potassium [Moles/Vol] 4.1 mmol/L 3.5-5.1 [facility] Serum or plasma sodium measu rement (moles/volume)Ordered By: Addi Ortega on 02-10-2022 Sodium [Moles/Vol] 135 mmol/L 136-146 [facility] Serum or plasma total biliru bin measurement (mass/volume)Ordered By: Addi Ortega on 02-10-2022 Bilirubin [Mass/Vol] 0.7 mg/dL 0.3-1.2 [facility] Serum or plasma total carbon dioxide measurement (moles/volume)Ordered By: Addi Ortega on 02-10-2022 CO2 [Moles/Vol] 23.3 mmol/L 22.0-30.0 [facility] Serum or plasma total choles terol/high density lipoprotein (HDL) cholesterol mass ratOrdered By: Addi Ortega on 02-10-2022 Cholesterol.total/Cho lesterol in HDL [Mass ratio] 3.5 {ratio} <5.0 [facility] Serum or plasma urea nitroge n measurement (mass/volume)Ordered By: Addi Ortega on 02-10-2022 Urea nitrogen [Mass/Vol] 17 mg/dL 9-23 [facility] TSH DL <= 0.005 mIU/L QnOrde red By: Addi Ortega on 02-10-2022 TSH Qn 57.67 m[IU]/L 0.45-5.33 [facility] No Panel Informationon 09-03 6 {mm/hr} Normal 0-34 -[facility] [facility] DO Work Phone: Office [...] Vital Signs Recorded: 03Sep2021 10:02AMRecorded: 03Sep2021 09:55AM [id number], LUE, [id number], RUE, Sitting Lfjviqqxt77, LUE, Kxwzrma63, RUE, Sitting Heart Rate72, Apical Height5 ft 7 in Llkrlo920 lb 9.6 oz BMI Duosqiisiw46.36 kg/m2 BSA Calculated2.05 Tobacco Useb) No EKG [...] . Sign (more content not included)... Normal [employer] Tobacco Screening.on 022 Tobacco use status CPHS b) No -[facility] 600 DO Work Phone: Vital Signs Date Time Vital Sign Value Performing Clinician Facility 09-07-2024 14:44-0500 Body mass index (BMI) [Ratio] 39.75 kg/m2 Mya MCMILLAN Work Phone: [facility] 09-07-2024 14:44-0500 Body weight 115.12 kg Mya MCMILLAN Work Phone: [facility] 09-07-2024 14:44-0500 Diastolic blood pressure 82 mm[Hg] Mya MCMILLAN Work Phone: [facility] 09-07-2024 14:44-0500 Systolic blood pressure 120 mm[Hg] Mya MCMILLAN Work Phone: [facility] 09-06-2024 14:04-0500 Body temperature 97.88 [degF] Flash [facility] 09-06-2024 14:04-0500 Diastolic blood pressure 77 mm[Hg] [facility] 09-06-2024 14:04-0500 Heart rate 101 /min [facility] 09-06-2024 14:04-0500 Respiratory rate 18 /min [facility] 09-06-2024 14:04-0500 SaO2% (BldA) [Mass fraction] 99 % [facility] 09-06-2024 14:04-0500 Systolic blood pressure 122 mm[Hg] [facility] 09-05-2024 15:45-0500 Hourly Rounding [facility] Comment on above: Result Comment: discharge instructions g iven. monitors off and pt up to dress. 09-05-2024 15:35-0500 Hourly Rounding [facility] Comment on above: Result Comment: pt was able to keep spri te and lemon ice down. Wants to go home. 09-05-2024 14:49-0500 Hourly Rounding [facility] Comment on above: Result Comment: sprite, lemon ice and ju ice given per pt request. 09-05-2024 07:35-0500 Body temperature 98.24 [degF] [facility] 09-05-2024 07:35-0500 Diastolic blood pressure 42 mm[Hg] [facility] 09-05-2024 07:35-0500 Heart rate 109 /min [facility] 09-05-2024 07:35-0500 Mean blood pressure 65 mm[Hg] [facility] 09-05-2024 07:35-0500 Respiratory rate 18 /min [facility] 09-05-2024 07:35-0500 Systolic blood pressure 111 mm[Hg] [facility] 09-05-2024 07:30-0500 Blood Pressure Location [facility] 09-05-2024 04:32-0500 Blood Pressure Location [facility] 09-05-2024 04:32-0500 Body temperature 98.24 [degF] [facility] 09-05-2024 04:32-0500 Diastolic blood pressure 72 mm[Hg] [facility] 09-05-2024 04:32-0500 Heart rate 104 /min [facility] 09-05-2024 04:32-0500 Mean blood pressure 90 mm[Hg] [facility] 09-05-2024 04:32-0500 Respiratory rate 16 /min [facility] 09-05-2024 04:32-0500 SaO2% (BldA) [Mass fraction] 98 % [facility] 09-05-2024 04:32-0500 Systolic blood pressure 127 mm[Hg] [facility] 09-05-2024 04:00-0500 Diastolic blood pressure 64 mm[Hg] [facility] 09-05-2024 04:00-0500 Heart rate 115 /min [facility] 09-05-2024 04:00-0500 Mean blood pressure 86 mm[Hg] [facility] 09-05-2024 04:00-0500 Systolic blood pressure 129 mm[Hg] [facility] 09-05-2024 03:06-0500 Body temperature 97.7 [degF] [facility] 09-05-2024 03:06-0500 Heart rate 128 /min [facility] 09-05-2024 03:06-0500 Respiratory rate 20 /min [facility] 09-05-2024 03:06-0500 SaO2% (BldA) [Mass fraction] 98 % [facility] 08-25-2024 12:21-0500 Body height 170.18 cm Darwin Easterwood 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 Work Phone: [facility] 08-25-2024 12:21-0500 Body mass index (BMI) [Ratio] 39.6 kg/m2 Darwin Easterwood 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 Work Phone: [facility] 08-25-2024 12:21-0500 Body weight 114.75 kg Darwin Easterwood 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 Work Phone: [facility] 08-25-2024 12:21-0500 Diastolic blood pressure 84 mm[Hg] Darwin Easterwood 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 Work Phone: [facility] 08-25-2024 12:21-0500 Heart rate 108 /min Darwin Easterwood 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 Work Phone: [facility] 08-25-2024 12:21-0500 Respiratory rate 18 /min Darwin Easterwood 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 Work Phone: [facility] 08-25-2024 12:21-0500 SaO2% (BldA) [Mass fraction] 98 % Darwin Easterwood 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 Work Phone: [facility] 08-25-2024 12:21-0500 Systolic blood pressure 132 mm[Hg] Darwin Easterwood 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 Work Phone: [facility] 08-23-2024 11:00-0500 Body mass index (BMI) [Ratio] 40.16 kg/m2 Brain Seamus DO Work Phone: [facility] 08-23-2024 11:00-0500 Body weight 116.3 kg Brain Seamus DO Work Phone: [facility] 08-23-2024 11:00-0500 Diastolic blood pressure 78 mm[Hg] Brain Seamus DO Work Phone: [facility] 08-23-2024 11:00-0500 Systolic blood pressure 120 mm[Hg] Brain Seamus DO Work Phone: [facility] 07-11-2024 13:09-0500 Body mass index (BMI) [Ratio] 38.97 kg/m2 Brain Seamus DO Work Phone: [facility] 07-11-2024 13:09-0500 Body weight 112.86 kg Brain Seamus DO Work Phone: [facility] 07-11-2024 13:09-0500 Diastolic blood pressure 76 mm[Hg] Brain Seamus DO Work Phone: [facility] 07-11-2024 13:09-0500 Systolic blood pressure 120 mm[Hg] Brain Seamus DO Work Phone: [facility] 06-28-2024 08:04-0500 Body weight Darwin Jones APRN Work Phone: [facility] Comment on above: Not provided. 2024 14:13-0500 Diastolic blood pressure 78 mm[Hg] Hayden Reilly MD Work Phone: [facility] 2024 14:13-0500 Heart rate 88 /min Hayden Reilly MD Work Phone: [facility] 2024 14:13-0500 Systolic blood pressure 125 mm[Hg] Hayden Reilly MD Work Phone: [facility] 2024 13:18-0500 Body height 170.2 cm Hayden Reilly MD Work Phone: [facility] 06-12-2024 10:19-0400 Body mass index (BMI) [Ratio] 38.37 kg/m2 Brain Seamus DO Work Phone: [facility] 06-12-2024 10:19-0400 Body weight 111.13 kg Brain Seamus DO Work Phone: [facility] 06-12-2024 10:19-0400 Diastolic blood pressure 80 mm[Hg] Brain Seamus DO Work Phone: [facility] 06-12-2024 10:19-0400 Systolic blood pressure 122 mm[Hg] Brain Seamus DO Work Phone: [facility] 05-11-2024 11:04-0400 Body height 170.18 cm 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 Darwin Easterwood Work Phone: [facility] 05-11-2024 11:04-0400 Body mass index (BMI) [Ratio] 38.2 kg/m2 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 Darwin Easterwood Work Phone: [facility] 05-11-2024 11:04-0400 Body temperature 97.8 [degF] 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 Darwin Easterwood Work Phone: [facility] 05-11-2024 11:04-0400 Body weight 110.67 kg 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 Darwin Easterwood Work Phone: [facility] 05-11-2024 11:04-0400 Diastolic blood pressure 74 mm[Hg] 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 Darwin Easterwood Work Phone: [facility] 05-11-2024 11:04-0400 Heart rate 90 /min 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 Darwin Easterwood Work Phone: [facility] 05-11-2024 11:04-0400 Respiratory rate 20 /min 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 Darwin Easterwood Work Phone: [facility] 05-11-2024 11:04-0400 SaO2% (BldA) [Mass fraction] 98 % 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 Darwin Jones Work Phone: [facility] 05-11-2024 11:04-0400 Systolic blood pressure 126 mm[Hg] 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 Darwin Jones Work Phone: [facility] 05-10-2024 13:50-0400 Body mass index (BMI) [Ratio] 38.39 kg/m2 Brain Seamus DO Work Phone: [facility] 05-10-2024 13:50-0400 Body weight 111.19 kg Brain Seamus DO Work Phone: [facility] 05-10-2024 13:50-0400 Diastolic blood pressure 76 mm[Hg] Brain Seamus DO Work Phone: [facility] 05-10-2024 13:50-0400 Systolic blood pressure 120 mm[Hg] Brain Seamus DO Work Phone: [facility] 04-20-2024 10:37-0400 Body mass index (BMI) [Ratio] 38.53 kg/m2 Brain Seamus DO Work Phone: [facility] 04-20-2024 10:37-0400 Body weight 111.58 kg Brain Seamus DO Work Phone: [facility] 04-20-2024 10:37-0400 Diastolic blood pressure 76 mm[Hg] Brian Seamus DO Work Phone: [facility] 04-20-2024 10:37-0400 Systolic blood pressure 122 mm[Hg] Brain Seamus DO Work Phone: [facility] 04-07-2024 09:42-0400 Body mass index (BMI) [Ratio] 38.86 kg/m2 Noms Nurse [facility] 04-07-2024 09:42-0400 Body weight 112.55 kg Noms Nurse [facility] 04-07-2024 09:42-0400 Diastolic blood pressure 70 mm[Hg] Noms Nurse [facility] 04-07-2024 09:42-0400 Systolic blood pressure 120 mm[Hg] Noms Nurse [facility] 03-18-2024 11:50-0400 Diastolic blood pressure 83 mm[Hg] Toan [facility] 03-18-2024 11:50-0400 Heart rate 75 /min To[facility] Ste[facility] 03-18-2024 11:50-0400 Mean blood pressure 97 mm[Hg] Toan Ste[facility] 03-18-2024 11:50-0400 Respiratory rate 16 /min To[facility] 03-18-2024 11:50-0400 SaO2% (BldA) [Mass fraction] 98 % [facility] 03-18-2024 11:50-0400 Systolic blood pressure 126 mm[Hg] Toan Setine [facility] 03-18-2024 09:46-0400 Hourly Rounding [facility] 03-18-2024 09:11-0400 Hourly Rounding [facility] 03-18-2024 08:10-0400 Body temperature 98.6 [degF] To[facility] 03-18-2024 08:10-0400 Diastolic blood pressure 91 mm[Hg] Toan Jaya [facility] 03-18-2024 08:10-0400 Heart rate 98 /min To[facility] 03-18-2024 08:10-0400 Hourly Rounding [facility] 03-18-2024 08:10-0400 Respiratory rate 17 /min [facility] 03-18-2024 08:10-0400 SaO2% (BldA) [Mass fraction] 98 % [facility] [place] [facility] 03-18-2024 08:10-0400 Systolic blood pressure 135 mm[Hg] [facility] [place] [facility] 01-25-2024 08:59-0400 Body height 170.18 cm 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 Darwin Easterwood Work Phone: [facility] 01-25-2024 08:59-0400 Body mass index (BMI) [Ratio] 37.4 kg/m2 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 Darwin Easterwood Work Phone: [facility] 01-25-2024 08:59-0400 Body temperature 98 [degF] 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 Darwin Easterwood Work Phone: [facility] 01-25-2024 08:59-0400 Body weight 108.4 kg 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 Darwin Easterwood Work Phone: [facility] 01-25-2024 08:59-0400 Diastolic blood pressure 80 mm[Hg] 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 Darwin Easterwood Work Phone: [facility] 01-25-2024 08:59-0400 Heart rate 98 /min 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 Darwin Easterwood Work Phone: [facility] 01-25-2024 08:59-0400 Respiratory rate 20 /min 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 Darwin Easterwood Work Phone: [facility] 01-25-2024 08:59-0400 SaO2% (BldA) [Mass fraction] 99 % 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 Darwin Easterwood Work Phone: [facility] 01-25-2024 08:59-0400 Systolic blood pressure 122 mm[Hg] 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 Darwin Easterwood Work Phone: [facility] 12-24-2023 09:56-0400 Body height 170.18 cm 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 Darwin Jonesermacy Work Phone: [facility] 12-24-2023 09:56-0400 Body mass index (BMI) [Ratio] 37.7 kg/m2 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 Darwin Jonesermacy Work Phone: [facility] 12-24-2023 09:56-0400 Body temperature 97.6 [degF] 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 Darwin Jonesermacy Work Phone: [facility] 12-24-2023 09:56-0400 Body weight 109.31 kg 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 Darwin Jonesermacy Work Phone: [facility] 12-24-2023 09:56-0400 Diastolic blood pressure 84 mm[Hg] 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 Darwin Jonesermacy Work Phone: [facility] 12-24-2023 09:56-0400 Heart rate 102 /min 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 Darwin Jonesermacy Work Phone: [facility] 12-24-2023 09:56-0400 Respiratory rate 20 /min 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 Darwin Jonesermacy Work Phone: [facility] 12-24-2023 09:56-0400 SaO2% (BldA) [Mass fraction] 98 % 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 Darwin Jonesermacy Work Phone: [facility] 12-24-2023 09:56-0400 Systolic blood pressure 126 mm[Hg] 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 Darwin Easterwood Work Phone: [facility] 11-25-2023 09:01-0400 Body height 170.18 cm 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 Darwin Joneserwood Work Phone: [facility] 11-25-2023 09:01-0400 Body mass index (BMI) [Ratio] 37.7 kg/m2 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 Darwin Easterwood Work Phone: [facility] 11-25-2023 09:01-0400 Body temperature 97 [degF] 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 Darwin Eastermacy Work Phone: [facility] 11-25-2023 09:01-0400 Body weight 109.31 kg 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 Darwin Eastermacy Work Phone: [facility] 11-25-2023 09:01-0400 Diastolic blood pressure 76 mm[Hg] 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 Darwin Eastermacy Work Phone: [facility] 11-25-2023 09:01-0400 Heart rate 95 /min 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 Darwin Jonesermacy Work Phone: [facility] 11-25-2023 09:01-0400 Respiratory rate 20 /min 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 Darwin Eastermacy Work Phone: [facility] 11-25-2023 09:01-0400 SaO2% (BldA) [Mass fraction] 98 % 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Akilah Jonesermacy Work Phone: [facility] 11-25-2023 09:01-0400 Systolic blood pressure 120 mm[Hg] 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Akilah Jonesermacy Work Phone: [facility] 11-18-2023 08:03-0400 Body weight 110.68 kg Ruby Whittington MD Work Phone: [facility] 11-18-2023 08:03-0400 Diastolic blood pressure 92 mm[Hg] Ruby Whittington MD Work Phone: [facility] 11-18-2023 08:03-0400 Heart rate 100 /min Ruby Whittington MD Work Phone: [facility] 11-18-2023 08:03-0400 Systolic blood pressure 132 mm[Hg] Ruby Whittington MD Work Phone: [facility] 10-20-2023 09:05-0500 Body height 170.18 cm 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 Darwin Robertermacy Work Phone: [facility] 10-20-2023 09:05-0500 Body mass index (BMI) [Ratio] 38.3 kg/m2 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 Darwin Jones Work Phone: [facility] 10-20-2023 09:05-0500 Body temperature 98 [degF] 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Akilah Jones Work Phone: [facility] 10-20-2023 09:05-0500 Body weight 111.13 kg 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 Darwin Jones Work Phone: [facility] 10-20-2023 09:05-0500 Diastolic blood pressure 78 mm[Hg] 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 Darwin Jnoes Work Phone: [facility] 10-20-2023 09:05-0500 Heart rate 82 /min 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 Darwin Jones Work Phone: [facility] 10-20-2023 09:05-0500 Respiratory rate 20 /min 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 Darwin Jones Work Phone: [facility] 10-20-2023 09:05-0500 SaO2% (BldA) [Mass fraction] 98 % 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 Darwin Jones Work Phone: [facility] 10-20-2023 09:05-0500 Systolic blood pressure 124 mm[Hg] 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 Darwin Jones Work Phone: [facility] 09-29-2023 10:41-0500 Blood Pressure Location Tyrone Pranav [facility] 09-29-2023 10:41-0500 Body temperature 98.24 [degF] Tyrone Rock [facility] 09-29-2023 10:41-0500 Diastolic blood pressure 78 mm[Hg] Tyrone Rock [facility] 09-29-2023 10:41-0500 Heart rate 95 /min Tyrone Rock [facility] 09-29-2023 10:41-0500 SaO2% (BldA) [Mass fraction] 97 % Tyrone Rock [facility] 09-29-2023 10:41-0500 Systolic blood pressure 122 mm[Hg] Tyrone Rock [facility] 09-21-2023 09:00-0500 Body height 170.18 cm Darwin Motallyerwood Other [facility] [employer] Other 09-21-2023 09:00-0500 Body mass index (BMI) [Ratio] 38.37 kg/m2 Darwin Easterwood Other [employer] Other 09-21-2023 09:00-0500 Body temperature 98 [degF] Darwin Easterwood Other [employer] Other 09-21-2023 09:00-0500 Body weight 111.13 kg Darwin Easterwood Other [employer] Other 09-21-2023 09:00-0500 Diastolic blood pressure 84 mm[Hg] Darwin Easterwood Other [employer] Other 09-21-2023 09:00-0500 Respiratory rate 20 /min Darwin Easterwood Other [employer] Other 09-21-2023 09:00-0500 SaO2% (BldA) [Mass fraction] 98 % Darwin Easterwood Other [employer] Other 09-21-2023 09:00-0500 Systolic blood pressure 126 mm[Hg] Darwin Easterwood Other [employer] Other 08-25-2023 09:30-0500 Body height 170.18 cm Darwin Easterwood Other [facility] 08-25-2023 09:30-0500 Body mass index (BMI) [Ratio] 39.46 kg/m2 Darwin Easterwood Other [place] [employer] Other 08-25-2023 09:30-0500 Body temperature 97.6 [degF] Darwin Easterwood Other [employer] Other 08-25-2023 09:30-0500 Body weight 114.31 kg Darwin Easterwood Other [facility] [employer] Other 08-25-2023 09:30-0500 Body weight 114.3 kg 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 Darwin Easterwood Work Phone: [facility] 08-25-2023 09:30-0500 Diastolic blood pressure 80 mm[Hg] Darwin Easterwood Other [facility] 08-25-2023 09:30-0500 Respiratory rate 20 /min Darwin Easterwood Other [place] [employer] Other 08-25-2023 09:30-0500 SaO2% (BldA) [Mass fraction] 98 % Darwin Easterwood Other [employer] Other 08-25-2023 09:30-0500 Systolic blood pressure 120 mm[Hg] Darwin Easterwood Other [facility] 07-23-2023 09:30-0500 Body height 170.18 cm 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 Darwin Easterwood Work Phone: [facility] 07-23-2023 09:30-0500 Body weight 116.57 kg 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 Darwin Easterwood Work Phone: [facility] 07-23-2023 09:30-0500 Diastolic blood pressure 80 mm[Hg] 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 Darwin Easterwood Work Phone: [facility] 07-23-2023 09:30-0500 Systolic blood pressure 118 mm[Hg] 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 Darwin Easterwood Work Phone: [facility] 06-23-2023 09:30-0500 Body height 170.18 cm Darwin Easterwood Other [employer] Other 06-23-2023 09:30-0500 Body mass index (BMI) [Ratio] 40.4 kg/m2 Darwin Easterwood Other [employer] Other 06-23-2023 09:30-0500 Body temperature 97.4 [degF] Darwin Easterwood Other [employer] Other 06-23-2023 09:30-0500 Body weight 117.03 kg Darwin Easterwood Other [employer] Other 06-23-2023 09:30-0500 Diastolic blood pressure 78 mm[Hg] Darwin Easterwood Other [employer] Other 06-23-2023 09:30-0500 Respiratory rate 20 /min Darwin Easterwood Other [employer] Other 06-23-2023 09:30-0500 SaO2% (BldA) [Mass fraction] 98 % Darwin Easterwood Other [employer] Other 06-23-2023 09:30-0500 Systolic blood pressure 120 mm[Hg] Darwin Easterwood Other [employer] Other 06-08-2023 14:00-0400 Body temperature 97.2 [degF] Francy Gan PA-C Work Phone: [facility] 05-26-2023 10:30-0400 Body height 170.18 cm Darwin Easterwood Other [employer] Other 05-26-2023 10:30-0400 Body mass index (BMI) [Ratio] 41.5 kg/m2 Darwin Easterwood Other [employer] Other 05-26-2023 10:30-0400 Body temperature 98.4 [degF] Darwin Easterwood Other [employer] Other 05-26-2023 10:30-0400 Body weight 120.2 kg Darwin Easterwood Other [employer] Other 05-26-2023 10:30-0400 Diastolic blood pressure 70 mm[Hg] Darwin Easterwood Other [employer] Other 05-26-2023 10:30-0400 Respiratory rate 20 /min Darwin Easterwood Other [employer] Other 05-26-2023 10:30-0400 SaO2% (BldA) [Mass fraction] 97 % Darwin Easterwood Other [employer] Other 05-26-2023 10:30-0400 Systolic blood pressure 112 mm[Hg] Darwin Easterwood Other [employer] Other 04-28-2023 09:15-0400 Body height 170.18 cm Darwin Easterwood Other [employer] Other 04-28-2023 09:15-0400 Body mass index (BMI) [Ratio] 41.34 kg/m2 Darwin Easterwood Other [employer] Other 04-28-2023 09:15-0400 Body temperature 97.2 [degF] Darwin Easterwood Other [employer] Other 04-28-2023 09:15-0400 Body weight 119.75 kg Darwin Easterwood Other [employer] Other 04-28-2023 09:15-0400 Diastolic blood pressure 82 mm[Hg] Darwin Easterwood Other [employer] Other 04-28-2023 09:15-0400 Respiratory rate 20 /min Darwin Easterwood Other [employer] Other 04-28-2023 09:15-0400 SaO2% (BldA) [Mass fraction] 97 % Darwin Easterwood Other [employer] Other 04-28-2023 09:15-0400 Systolic blood pressure 120 mm[Hg] Darwin Easterwood Other [employer] Other 04-16-2023 11:00-0400 Body height 170.18 cm Darwin Easterwood Other [employer] Other 04-16-2023 11:00-0400 Body mass index (BMI) [Ratio] 41.03 kg/m2 Darwin Easterwood Other [employer] Other 04-16-2023 11:00-0400 Body temperature 97.8 [degF] Darwin Easterwood Other [employer] Other 04-16-2023 11:00-0400 Body weight 118.84 kg Darwin Easterwood Other [employer] Other 04-16-2023 11:00-0400 Diastolic blood pressure 80 mm[Hg] Darwin Easterwood Other [employer] Other 04-16-2023 11:00-0400 Respiratory rate 20 /min Darwin Easterwood Other [employer] Other 04-16-2023 11:00-0400 SaO2% (BldA) [Mass fraction] 98 % Darwin Easterwood Other [employer] Other 04-16-2023 11:00-0400 Systolic blood pressure 120 mm[Hg] Darwin Easterwood Other [employer] Other 03-22-2023 22:51-0400 Diastolic blood pressure 74 mm[Hg] Kaylinn Dokken [facility] 03-22-2023 22:51-0400 Heart rate 80 /min Kaylinn Dokken [facility] 03-22-2023 22:51-0400 Mean blood pressure 92 mm[Hg] Kaylinn Dokken [facility] 03-22-2023 22:51-0400 Respiratory rate 16 /min Kaylinn Dokken [facility] 03-22-2023 22:51-0400 SaO2% (BldA) [Mass fraction] 98 % Kaylinn Dokken [facility] 03-22-2023 22:51-0400 Systolic blood pressure 128 mm[Hg] Kaylinn Dokken [facility] 03-22-2023 21:24-0400 Heart rate 76 /min Kaylinn Dokken [facility] 03-22-2023 21:24-0400 Respiratory rate 16 /min Kaylinn Dokken [facility] 03-22-2023 21:24-0400 SaO2% (BldA) [Mass fraction] 97 % Kaylinn Dokken [facility] 03-22-2023 19:54-0400 Body temperature 98.06 [degF] Kaylinn Dokken [facility] 03-22-2023 19:54-0400 Diastolic blood pressure 89 mm[Hg] Kaylinn Dokken [facility] 03-22-2023 19:54-0400 Heart rate 81 /min Kaylinn Dokken [facility] 03-22-2023 19:54-0400 Respiratory rate 18 /min Kaylinn Dokken [facility] 03-22-2023 19:54-0400 SaO2% (BldA) [Mass fraction] 99 % Kaylinn Dokken [facility] 03-22-2023 19:54-0400 Systolic blood pressure 138 mm[Hg] Kaylinn Dokken [facility] 03-22-2023 15:18-0400 Body height 170.18 cm 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 Darwin Eastermacy Work Phone: [facility] 03-22-2023 15:18-0400 Body temperature 98.2 [degF] 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 Darwin Eastermacy Work Phone: [facility] 03-22-2023 15:18-0400 Body weight 120.5 kg 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 [employer] Work Phone: [facility] 03-22-2023 15:18-0400 Diastolic blood pressure 74 mm[Hg] 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 Darwin Eastermacy Work Phone: [facility] 03-22-2023 15:18-0400 Heart rate 92 /min 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 Darwin [employer] Work Phone: [facility] 03-22-2023 15:18-0400 Respiratory rate 20 /min 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 Darwin Jonesermacy Work Phone: [facility] 03-22-2023 15:18-0400 SaO2% (BldA) [Mass fraction] 97 % 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 Darwin Jonesermacy Work Phone: [facility] 03-22-2023 15:18-0400 Systolic blood pressure 175 mm[Hg] 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 Darwin Jonesermacy Work Phone: [facility] 10-05-2022 09:00-0500 Body height 170.18 cm Ofelia Couchler Other [employer] Other 10-05-2022 09:00-0500 Body mass index (BMI) [Ratio] 37.21 kg/m2 Ofelia Missler Other [employer] Other 10-05-2022 09:00-0500 Body weight 107.78 kg Ofeliaher Couchler Other [employer] Other 10-05-2022 09:00-0500 Diastolic blood pressure 45 mm[Hg] Ofelia Missler Other [employer] Other 10-05-2022 09:00-0500 Respiratory rate 18 /min Ofelia Missler Other [employer] Other 10-05-2022 09:00-0500 SaO2% (BldA) [Mass fraction] 97 % Ofelia Missler Other [employer] Other 10-05-2022 09:00-0500 Systolic blood pressure 100 mm[Hg] Ofelia Missler Other [employer] Other 09-02-2022 11:30-0500 Body height 170.18 cm Ofelia Missler Other [employer] Other 09-02-2022 11:30-0500 Body mass index (BMI) [Ratio] 38.04 kg/m2 Ofelia Missler Other [employer] Other 09-02-2022 11:30-0500 Body weight 110.18 kg Ofelia Missler Other [employer] Other 09-02-2022 11:30-0500 Diastolic blood pressure 79 mm[Hg] Ofelia Missler Other [employer] Other 09-02-2022 11:30-0500 Respiratory rate 18 /min Ofelia Missler Other [employer] Other 09-02-2022 11:30-0500 SaO2% (BldA) [Mass fraction] 96 % Ofelia Missler Other [employer] Other 09-02-2022 11:30-0500 Systolic blood pressure 119 mm[Hg] Ofelia Missler Other [employer] Other 08-25-2022 14:00-0500 Body height 170.18 cm Lilly Fitt Other [employer] Other 08-25-2022 14:00-0500 Body mass index (BMI) [Ratio] 38.01 kg/m2 Lilly Fitt Other [employer] Other 08-25-2022 14:00-0500 Body weight 110.09 kg Lilly Fitt Other [employer] Other 07-31-2022 09:45-0500 Body height 170.18 cm Foelia Missler Other [employer] Other 07-31-2022 09:45-0500 Body mass index (BMI) [Ratio] 38.2 kg/m2 Ofelia Missler Other [employer] Other 07-31-2022 09:45-0500 Body weight 110.63 kg Ofelia Missler Other [employer] Other 07-31-2022 09:45-0500 Diastolic blood pressure 78 mm[Hg] Ofelia Missler Other [employer] Other 07-31-2022 09:45-0500 Respiratory rate 18 /min Ofelia Missler Other [employer] Other 07-31-2022 09:45-0500 SaO2% (BldA) [Mass fraction] 96 % Ofelia Missler Other [employer] Other 07-31-2022 09:45-0500 Systolic blood pressure 135 mm[Hg] Ofelia Missler Other [employer] Other 07-14-2022 08:49-0500 Body height 170.5 cm Ruby Whittington MD Work Phone: [facility] 07-14-2022 08:49-0500 Body weight 111.58 kg Ruby Whittington MD Work Phone: [facility] 07-14-2022 08:49-0500 Diastolic blood pressure 73 mm[Hg] Ruby Whittington MD Work Phone: [facility] 07-14-2022 08:49-0500 Heart rate 92 /min Ruby Whittington MD Work Phone: [facility] 07-14-2022 08:49-0500 Systolic blood pressure 140 mm[Hg] Ruby Whittington MD Work Phone: [facility] 06-17-2022 15:45-0400 Body height 170.18 cm Ofelia Missler Other [employer] Other 06-17-2022 15:45-0400 Body mass index (BMI) [Ratio] 38.99 kg/m2 Ofelia Missler Other [employer] Other 06-17-2022 15:45-0400 Body weight 112.95 kg Ofelia Missler Other [employer] Other 06-17-2022 15:45-0400 Diastolic blood pressure 90 mm[Hg] Ofelia Missler Other [employer] Other 06-17-2022 15:45-0400 Respiratory rate 18 /min Ofelia Missler Other [employer] Other 06-17-2022 15:45-0400 SaO2% (BldA) [Mass fraction] 96 % Ofelia Hester Other [employer] Other 06-17-2022 15:45-0400 Systolic blood pressure 140 mm[Hg] Ofelia Hester Other [employer] Other 06-04-2022 13:00-0400 Body height 170.18 cm Sima Ross Other [employer] Other 06-04-2022 13:00-0400 Body mass index (BMI) [Ratio] 38.37 kg/m2 Sima Ross Other [employer] Other 06-04-2022 13:00-0400 Body temperature 98.6 [degF] Sima Ross Other [employer] Other 06-04-2022 13:00-0400 Body weight 111.13 kg Sima Ross Other [employer] Other 06-04-2022 13:00-0400 Diastolic blood pressure 83 mm[Hg] Sima Ross Other [employer] Other 06-04-2022 13:00-0400 Respiratory rate 18 /min Sima Ross Other [employer] Other 06-04-2022 13:00-0400 SaO2% (BldA) [Mass fraction] 99 % Sima Ross Other [employer] Other 06-04-2022 13:00-0400 Systolic blood pressure 124 mm[Hg] Sima Ross Other [employer] Other 05-27-2022 12:15-0400 Body height 170.18 cm Lilly Luke Other [employer] Other 05-18-2022 09:30-0400 Body height 170.18 cm Ofelia Missler Other [employer] Other 05-18-2022 09:30-0400 Body mass index (BMI) [Ratio] 39.37 kg/m2 Ofelia Missler Other [employer] Other 05-18-2022 09:30-0400 Body temperature 98.1 [degF] Ofelia Missler Other [employer] Other 05-18-2022 09:30-0400 Body weight 114.04 kg Ofelia Missler Other [employer] Other 05-18-2022 09:30-0400 Diastolic blood pressure 80 mm[Hg] Ofelia Missler Other [employer] Other 05-18-2022 09:30-0400 Respiratory rate 18 /min Ofelia Missler Other [employer] Other 05-18-2022 09:30-0400 SaO2% (BldA) [Mass fraction] 99 % Ofelia Missler Other [employer] Other 05-18-2022 09:30-0400 Systolic blood pressure 115 mm[Hg] Ofelia Missler Other [employer] Other 04-17-2022 09:30-0400 Body height 170.18 cm Darwin [facility] Other [employer] Other 04-17-2022 09:30-0400 Body mass index (BMI) [Ratio] 39.15 kg/m2 Darwin Joneserwood Other [employer] Other 04-17-2022 09:30-0400 Body temperature 96.9 [degF] Darwin Roberterwood Other [employer] Other 04-17-2022 09:30-0400 Body weight 113.4 kg Darwincary [employer] Other [employer] Other 04-17-2022 09:30-0400 Diastolic blood pressure 82 mm[Hg] Darwin Roberterwood Other [employer] Other 04-17-2022 09:30-0400 Respiratory rate 20 /min Darwin Roberterwood Other [employer] Other 04-17-2022 09:30-0400 SaO2% (BldA) [Mass fraction] 99 % Darwin Roberterwood Other [employer] Other 04-17-2022 09:30-0400 Systolic blood pressure 124 mm[Hg] Darwin Easterwood Other [employer] Other 02-18-2022 21:41-0400 Diastolic blood pressure 88 mm[Hg] Fazal Antoni [facility] 02-18-2022 21:41-0400 Heart rate 84 /min Fazal Antoni [facility] 02-18-2022 21:41-0400 Mean blood pressure 101 mm[Hg] Fazal Antoni [facility] 02-18-2022 21:41-0400 Respiratory rate 17 /min Fazal Antoni [facility] 02-18-2022 21:41-0400 SaO2% (BldA) [Mass fraction] 98 % [employer] Other [employer] Other 02-18-2022 21:41-0400 Systolic blood pressure 126 mm[Hg] Fazal Antoni [facility] 02-18-2022 20:42-0400 gluc 106 mg/dL Fazal Antoni [facility] 02-18-2022 20:42-0400 gluc Fazal Antoni [facility] 02-18-2022 20:33-0400 Body temperature 98.06 [degF] Fazal Antoni [facility] 02-18-2022 20:33-0400 Diastolic blood pressure 99 mm[Hg] Fazal Antoni [facility] 02-18-2022 20:33-0400 Heart rate 99 /min Fazal Antoni [facility] 02-18-2022 20:33-0400 Respiratory rate 18 /min Fazal Antoni [facility] 02-18-2022 20:33-0400 Systolic blood pressure 153 mm[Hg] Fazal Antoni [facility] 02-18-2022 10:00-0400 Body height 170.18 cm [employer] Other [employer] Other 02-18-2022 10:00-0400 Body mass index (BMI) [Ratio] 38.52 kg/m2 [employer] Other [employer] Other 02-18-2022 10:00-0400 Body temperature 97 [degF] Darwin Easterwood Other [employer] Other 02-18-2022 10:00-0400 Body weight 111.59 kg Darwin Easterwood Other [employer] Other 02-18-2022 10:00-0400 Diastolic blood pressure 82 mm[Hg] Darwin Easterwood Other [employer] Other 02-18-2022 10:00-0400 Respiratory rate 20 /min Darwin Easterwood Other [employer] Other 02-18-2022 10:00-0400 Systolic blood pressure 118 mm[Hg] Darwin Easterwood Other [employer] Other 02-11-2022 12:00-0400 Body height 170.18 cm Darwin Easterwood Other [employer] Other 02-11-2022 12:00-0400 Body mass index (BMI) [Ratio] 37.9 kg/m2 Darwin Easterwood Other [employer] Other 02-11-2022 12:00-0400 Body temperature 97.2 [degF] Darwin Easterwood Other [employer] Other 02-11-2022 12:00-0400 Body weight 109.77 kg Darwin Easterwood Other [employer] Other 02-11-2022 12:00-0400 Diastolic blood pressure 88 mm[Hg] Darwin Easterwood Other [employer] Other 02-11-2022 12:00-0400 Respiratory rate 20 /min Dariwn Jones Other [employer] Other 02-11-2022 12:00-0400 SaO2% (BldA) [Mass fraction] 98 % Darwin Jones Other [employer] Other 02-11-2022 12:00-0400 Systolic blood pressure 126 mm[Hg] Darwin Jones Other [employer] Other 09-03-2021 10:02-0500 Diastolic blood pressure 86 mm[Hg] Unknown Unknown [facility] [facility] Work Phone: 09-03-2021 10:02-0500 Systolic blood pressure 110 mm[Hg] Unknown Unknown [facility] [facility] DO Work Phone: 09-03-2021 09:55-0500 Body height 170.18 cm Unknown Unknown [facility] [facility] DO Work Phone: 09-03-2021 09:55-0500 Body mass index (BMI) [Ratio] 32.36 kg/m2 Unknown Unknown [facility] 600 DO Work Phone: 09-03-2021 09:55-0500 Body surface area Derived from formula 2.05 m2 Unknown Unknown [facility] [facility] DO Work Phone: 09-03-2021 09:55-0500 Body weight 93.71 kg Unknown Unknown [facility] 600 DO Work Phone: 09-03-2021 09:55-0500 Diastolic blood pressure 84 mm[Hg] Unknown Unknown [facility] 600 DO Work Phone: 09-03-2021 09:55-0500 Heart rate 72 /min Unknown Unknown [facility] 600 DO Work Phone: 09-03-2021 09:55-0500 Systolic blood pressure 122 mm[Hg] Unknown Unknown [facility] 600 DO Work Phone: Encounters Encounter Date Encounter Type Care Provider Facility Start: 09-15-2024 End: 09-15-2024 Clinisync Result Encounter Brain Way DO Work Phone: [facility] Unsolicited Start: 09-15-2024 End: 09-15-2024 Clinisync Result Encounter Brain Way DO Work Phone: [facility] External [facility] Unsolicited Start: 09-14-2024 End: 09-14-2024 Patient encounter procedure Darwin Jones 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 Work Phone: [facility] Work Phone: Start: 09-14-2024 End: 09-14-2024 ambulatory Darwin Jones 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 Work Phone: [facility] Work Phone: Start: 09-11-2024 End: 09-11-2024 Clinisync Result Encounter Mya MCMILLAN Work Phone: [facility] External Department Unsolicited Start: 09-11-2024 End: 09-11-2024 Clinisync Result Encounter Mya MCMILLAN Work Phone: [facility] Unsolicited Start: 09-07-2024 End: 09-07-2024 flow sheet Mya MCMILLAN Work Phone: [facility] Comment on above: Third trimester preg gwen; 31 weeks gestation of ; size inconsistent with dates Start: 09-07-2024 End: 09-07-2024 ambulatory MYA FINCH Not Available Start: 09-07-2024 End: 09-07-2024 Bamboo flowsheet Mya MCMILLAN Work Phone: [facility] Start: 09-07-2024 End: 09-07-2024 Bamboo flowsheet Mya MCMILLAN Work Phone: [facility] Start: 09-07-2024 Non-patient / Non-visit Darwin corral 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 Work Phone: [facility] Work Phone: Start: 09-06-2024 End: 09-06-2024 Emergency department patient visit Flash Franco [facility] Start: 09-05-2024 ambulatory [facility] Facility :[facility] Start: 09-05-2024 End: 09-05-2024 ambulatory [facility] Facility:[facility] Start: 09-05-2024 Emergency department patient visit DO Gabriel Curtis Facility:[facility] Start: 09-05-2024 End: 09-05-2024 Observation [facility] Start: 08-25-2024 End: 08-25-2024 Clinisync Result Encounter Brain Seamus DO Work Phone: [facility] External [facility] Unsolicited Start: 08-25-2024 End: 08-25-2024 Clinisync Result Encounter Brain Seamus DO Work Phone: [facility] External [facility] Unsolicited Start: 08-25-2024 End: 08-25-2024 ambulatory Darwin Jones 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 Work Phone: [facility] Work Phone: Start: 08-25-2024 End: 08-25-2024 Patient encounter procedure Darwin Jones 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 Work Phone: [facility] Physician [facility] Work Phone: Start: 08-23-2024 End: 08-23-2024 Bamboo flowsheet Brain Seamus DO Work Phone: [facility] Start: 08-23-2024 End: 08-23-2024 Bamboo flowsheet Brain Seamus DO Work Phone: [facility] Start: 08-23-2024 End: 08-23-2024 flow sheet Brain Seamus DO Work Phone: [facility] Comment on above: 29 weeks gestation o f ; Third trimester ; Gastroesophageal reflux in Start: 08-23-2024 End: 08-23-2024 ambulatory BRAIN SEAMUS Not Available Start: 08-02-2024 End: 08-02-2024 ambulatory [facility] Start: 07-31-2024 End: 07-31-2024 Patient encounter procedure Darwin Jones 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 Work Phone: [facility] [place] Work Phone: Start: 07-31-2024 End: 07-31-2024 Orders Only Hayden Reilly MD Work Phone: [facility] - Labor Comment on above: History of pericardi tis (Primary Dx); Mild concentric left ventricular hypertrophy (LVH); 25 weeks gestation of Start: 07-27-2024 End: 07-27-2024 ambulatory NO PCP NO PCP [facility] Ambulatory [facility] Start: 07-11-2024 End: 07-11-2024 flow sheet Brain Seamus DO Work Phone: [facility] OB Comment on above: 22 weeks gestation o f ; Second trimester ; Nausea and vomiting during ; Diabetes mellitus screening Start: 06-28-2024 End: 06-28-2024 Patient encounter procedure Darwin Jones 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 Work Phone: [facility] [place] Work Phone: Start: 06-28-2024 End: 06-28-2024 ambulatory Darwin Anaya Roberttodd 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 Work Phone: [facility] Work Phone: Start: 2024 End: 2024 Office consultation new/estab patient 60 min Hayden Reilly MD Work Phone: [facility] [place] Comment on above: 20 weeks gestation o f (Primary Dx); Tiffani's disease; 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; Hx of preeclampsia, prior , currently ; Elevated BP without diagnosis of hypertension; History of pericarditis; with history of section, antepartum; History of macrosomia in in prior , currently ; Obesity affecting , antepartum, unspecified obesity type; Depression affecting Start: 2024 End: 2024 ambulatory BRAIN [facility] Start: 06-22-2024 End: 06-22-2024 Patient encounter procedure Darwin Jones 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 Work Phone: [facility] [place] Work Phone: Start: 06-22-2024 End: 06-22-2024 ambulatory Darwin Jones 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 Work Phone: [facility] Work Phone: Start: 06-21-2024 End: 06-21-2024 Chart abstracting Hayden Reilly MD Work Phone: [facility] Start: 06-12-2024 End: 06-12-2024 Bamboo flowsheet [...] Patient encounter procedure SHIRLEY Jones Work Phone: [facility] [place] Work Phone: Start: 05-24-2024 End: 05-24-2024 ambulatory SHIRLEY Jones Work Phone: [facility] Work Phone: Start: 05-11-2024 End: 05-11-2024 ambulatory SHIRLEY Laraleiter Work Phone: [facility] Work Phone: Start: 05-11-2024 End: 05-11-2024 Encounter for general adult medical examination without abnormal findings SHIRLEY Laraleiter Work Phone: [facility] Start: 05-11-2024 End: 05-11-2024 Patient encounter procedure SHIRLEY Jones Work Phone: [facility] Work Phone: Start: 05-10-2024 End: 05-10-2024 Bamboo [...] Start: 04-13-2024 End: 04-13-2024 Clinisync Result Encounter Brani Seamus DO Work Phone: [facility] External [facility] Unsolicited Start: 04-07-2024 End: 04-07-2024 Office outpatient visit 5 minutes [facility] Seamus Nurse [facility] Comment on above: GA: 9w2d Start: 04-07-2024 End: 04-07-2024 ambulatory MYA MARYSOL Not Available Start: 04-06-2024 End: 04-06-2024 Departed Referred SHIRLEY Jones Work Phone: [facility] Start: 04-06-2024 End: 04-06-2024 ambulatory SHIRLEY Jones Work Phone: [facility] Work Phone: Start: 03-21-2024 End: 03-21-[address] Not Available Start: 03-18-2024 End: 03-18-2024 Emergency department patient visit [place] [facility] Start: 02-24-2024 End: 02-24-2024 Patient encounter procedure 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 Darwin Roberterwood Work Phone: [facility] [place] Work Phone: Start: 02-24-2024 End: 02-24-2024 ambulatory 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 Darwin Anaya Easterwood Work Phone: [facility] Work Phone: Start: 01-25-2024 End: 01-25-2024 ambulatory 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 Darwin Jaclyn Easterwood Work Phone: [facility] Work Phone: Start: 01-25-2024 End: 01-25-2024 Patient encounter procedure 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 Darwin Roberterwood Work Phone: [facility] Work Phone: Start: 01-24-2024 End: 01-24-2024 Patient encounter procedure 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 Darwin Roberterwood Work Phone: [facility] [place] Work Phone: Start: 01-24-2024 End: 01-24-2024 ambulatory 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 Darwin Jaclyn Easterwood Work Phone: [facility] Work Phone: Start: 12-27-2023 End: 12-27-2023 Patient encounter procedure 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 Darwin Easterwood Work Phone: [facility] [place] Work Phone: Start: 12-27-2023 End: 12-27-2023 ambulatory 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 Darwin J Easterwood Work Phone: [facility] Work Phone: Start: 12-24-2023 End: 12-24-2023 ambulatory SHIRLEY Jones Work Phone: [facility] Work Phone: Start: 12-24-2023 End: 12-24-2023 Patient encounter procedure 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 Darwin Jones Work Phone: [facility] Work Phone: Start: 11-30-2023 End: 11-30-2023 Patient encounter procedure 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 Darwin Jones Work Phone: [facility] [place] Work Phone: Start: 11-30-2023 End: 11-30-2023 ambulatory SHIRLEY Jones Work Phone: [facility] Work Phone: Start: 11-25-2023 End: 11-25-2023 [facility]: [facility] Work Phone: Start: 11-25-2023 End: 11-25-2023 Patient encounter procedure 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 Darwin Jones Work Phone: [facility] Work Phone: Start: 11-18-2023 End: 11-19-2023 ambulatory RUBY WHITTINGTON Facility:[facility] Start: 11-18-2023 End: 11-18-2023 Patient encounter procedure Ruby Whittington MD Work Phone: Endocrinology Comment on above: 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 Work Phone: Start: 10-01-2023 End: 10-01-2023 Patient encounter procedure 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 Darwin Jones Work Phone: [facility] [place] Work Phone: Start: 10-01-2023 End: 10-01-2023 ambulatory 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 Darwin Jones Work Phone: [facility] Work Phone: Start: 09-29-2023 End: 09-29-2023 ambulatory Tyrone Rock Facility:[facility] Start: 09-29-2023 End: 09-29-2023 Patient encounter procedure Tyrone Rock [facility] Start: 09-21-2023 End: 09-21-2023 ambulatory Darwin Jonesermacy Other [facility] Other Start: 09-21-2023 Office outpatient vi sit 15 minutes Darwincary Jones [facility] Start: 08-30-2023 Patient encounter procedure 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 Darwin Jonesermacy Work Phone: [facility]- Start: 08-25-2023 End: 08-25-2023 ambulatory Darwin Joneserwood Other [facility] Other Start: 08-25-2023 Follow-up encounter Darwin Janemacy [facility] Start: 08-25-2023 End: 08-25-2023 Patient encounter procedure SHIRLEY Orosco Yasir Work Phone: [facility] Work Phone: Start: 07-23-2023 End: 07-23-2023 Patient encounter procedure 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Akilah Jonestodd Work Phone: [facility] Work Phone: Start: 07-16-2023 Telephone encounter Ruby sneed MD Work Phone: Endocrinology Comment on above: Appointment Start: 06-23-2023 End: 06-23-2023 ambulatory Darwin Yasir Other [facility] Other Start: 06-23-2023 Office outpatient vi sit 15 minutes Darwin Roberttodd [facility] Start: 06-08-2023 End: 06-08-2023 ambulatory FRANCY GAN Facility:[facility] Start: 06-08-2023 End: 06-08-2023 Patient encounter procedure Francy Gan PA-C Work Phone: Otolaryngology Comment on above: Dysphagia, unspecifi ed type (Primary Dx); LPRD (laryngopharyngeal reflux disease) Start: 05-26-2023 End: 05-26-2023 ambulatory Darwin Robertermacy Other [facility] Other Start: 05-26-2023 Office outpatient vi sit 25 minutes Darwin Yasir [facility] Start: 05-06-2023 End: 05-06-2023 ambulatory SHIRLEY Anaya Yasir Work Phone: [facility] Work Phone: Start: 05-06-2023 End: 05-06-2023 Patient encounter procedure SHIRLEY Jones Work Phone: [facility] [place] Work Phone: Start: 04-28-2023 End: 04-28-2023 ambulatory Darwin Jones Other [facility] Other Start: 04-28-2023 Office outpatient vi sit 40 minutes Darwin [facility] Start: 04-16-2023 End: 04-16-2023 [facility] Other Start: 04-16-2023 Encounter for genera l adult medical examination without abnormal [facility] Start: 04-16-2023 Periodic preventive med est patient 18-39 yrs [facility] Start: 04-08-2023 End: 04-08-2023 ambulatory 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 Darwin Jones Work Phone: [facility] Work Phone: Start: 04-08-2023 End: 04-08-2023 Departed Referred SHIRLEY Jones Work Phone: [facility]-Employee Benefit Screening Start: 03-22-2023 End: 03-22-2023 Emergency department patient visit Gabriel [facility] Start: 03-22-2023 End: 03-22-2023 Emergency department patient visit SHIRLEY Jones Work Phone: [facility] Work Phone: Start: 02-28-2023 End: 02-28-2023 Departed Referred SHIRLEY Jones Work Phone: [facility]-Employee Benefit Screening Start: 02-28-2023 End: 02-28-2023 ambulatory 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 Darwin Joneserwood Work Phone: [facility] Work Phone: Start: 02-28-2023 End: 02-28-2023 Patient encounter procedure 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Akilah Joneserwood Work Phone: [facility] [address] Work Phone: Start: 12-10-2022 End: 12-10-2022 ambulatory 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 Darwin Jonesermacy Work Phone: [facility] Work Phone: Start: 12-10-2022 End: 12-10-2022 Patient encounter procedure 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Akilah Joneserleiter Work Phone: [facility] [place] Work Phone: Start: 12-09-2022 End: 12-09-[address] NONE LISTED REQUEST Facility: Start: 12-08-2022 End: 12-08-2022 ambulatory Ofelia cassidy Other [facility] Other Start: 12-08-2022 [facility]en [facility] Start: 10-22-2022 End: 10-22-2022 ambulatory Lilly Neymarsonia Other [facility] Other Start: 10-22-2022 Telephone encounter Lilly Luke [facility] Start: 10-16-2022 End: 10-16-2022 ambulatory 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 Darwin Joneserwood Work Phone: [facility] Work Phone: Start: 10-16-2022 End: 10-16-2022 Patient encounter procedure 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 Darwin Joneserwood Work Phone: [facility] [place] Work Phone: Start: 10-15-2022 End: 10-15-2022 ambulatory Ofeliaher Couchler Other [facility] Other Start: 10-15-2022 Telephone encounter [facility] Start: 10-05-2022 Registered Recurring SHIRLEY Jones Work Phone: [facility]-Weight Management Work Phone: Start: 10-05-2022 ([facility] Weight Management f/u Ofelia [facility] Start: 10-05-2022 End: 10-05-2022 ambulatory Ofeliaher Hester Other [facility] Other Start: 09-28-2022 ambulatory Ruby Whittington MD Work Phone: Endocrinology Comment on above: Synthroid Start: 09-02-2022 ([facility]) Weight Management f/u [facility] Start: 09-02-2022 End: 09-02-2022 ambulatory Ofeliaher Hester Other [facility] Other Start: 08-25-2022 ([facility]) WMN Init ial Provider Lilly Neymarsonia [facility] Start: 08-25-2022 End: 08-25-2022 ambulatory Lilly Luke Other [facility] Other Start: 07-31-2022 ([facility]) Weight Management f/u [facility] Start: 07-31-2022 End: 07-31-2022 ambulatory Ofelia ler Other [facility] Other Start: 07-20-2022 End: 07-20-2022 ambulatory Lilly Luke Other [facility] Other Start: 07-20-2022 Telephone encounter Lilly Eubanks [facility] Start: 07-14-2022 End: 07-14-2022 Patient encounter procedure Ruby Whittington MD Work Phone: Endocrinology Comment on above: 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 Start: 06-17-2022 ([facility]/U) Weight Management f/u [facility] Start: 06-17-2022 End: 06-17-2022 ambulatory Ofelia Hester Other [facility] Other Start: 06-04-2022 End: 06-04-2022 ambulatory Sima Ross Other [facility] Other Start: 06-04-2022 Office outpatient vi sit 15 minutes Sima Ross [facility] Start: 05-27-2022 End: 05-27-2022 ambulatory Lilly Luke Other [facility] Other Start: 05-27-2022 IBT FOR OBESITY GROU P 2-10 30M Lillyakilah Luke [facility] Start: 05-25-2022 End: 05-25-2022 ambulatory Darwin Jones Other [facility] Other Start: 05-25-2022 Telephone encounter Geoffrey murphy MD Work Phone: Endocrinology Comment on above: Appointment (LVM for patient that appt on 05/[address] George has been rescheduled to 07/08 [address] [facility] with Dr. Robertson. sending mail reminder as well. ) Start: 05-19-2022 End: 10-04-2022 ambulatory Ofelia Hester Other [facility] Other Start: 05-19-2022 Telephone encounter Ofelia Purvis [facility] Start: 05-18-2022 End: 05-18-2022 ambulatory Ofelia Hester Other [facility] Other Start: 05-18-2022 Nutrition therapy Ofelia Hester [facility] Start: 04-21-2022 End: 04-21-2022 ambulatory Darwin Easterwood Other [facility] Other Start: 04-21-2022 Telephone encounter Darwin Easterwood [facility] Start: 04-17-2022 End: 04-17-2022 ambulatory Darwin Easterwood Other [facility] Other Start: 04-17-2022 Office outpatient vi sit 25 minutes Darwin Easterwood [facility] Start: 04-15-2022 End: 04-15-2022 ambulatory Darwin Easterwood Other [facility] Other Start: 04-15-2022 Telephone encounter Darwin Easterwood [facility] Start: 04-14-2022 End: 04-14-2022 Patient encounter procedure PHYSICIAN NO [facility] [place] Start: 04-10-2022 End: 04-10-2022 ambulatory Lillyakilah Blackmont Other [facility] Other Start: 04-10-2022 Telephone encounter Lillyakilah Luke [facility] Start: 04-06-2022 End: 04-06-2022 Patient encounter procedure PHYSICIAN NO [facility] [place] Start: 02-24-2022 End: 02-24-2022 ambulatory Darwin Easterwood Other [facility] Other Start: 02-24-2022 [facility] Start: 02-18-2022 End: 02-18-2022 Emergency department patient visit Fazal Corrales [facility] Start: 02-18-2022 End: 02-18-2022 [facility] Other Start: 02-18-2022 Office outpatient vi sit [facility] Start: 02-18-2022 [facility] Start: 02-13-2022 End: 02-13-2022 Patient encounter procedure PHYSICIAN [facility] [place] Start: 02-11-2022 End: 02-11-2022 [facility]ulatory [facility] Other Start: 02-11-2022 Office outpatient ne w 45 minutes [facility] Start: 02-10-2022 End: 02-10-2022 Departed Referred PHYSICIAN [facility]-Employee Benefit Screening Start: 09-04-2021 Chart Update Unknown Unknown [facility] 250 DO Work Phone: Start: 09-03-2021 Office outpatient ne w 45 minutes Unknown [facility] Work Phone: Procedures Date Procedure Procedure Detail Performing Clinician Start: 09-15-2024 US OB BPP W NON-STRESS Brain Seamus DO Work Phone: Start: 09-11-2024 US OB GROWTH Mya MCMILLAN [...] ultrasoun d of gravid uterus Darwin Jones SHIRLEY Work Phone: Start: 06-21-2024 H/O: section History of C-s ection Hayden Reilly MD Work Phone: Start: 06-12-2024 Urnls dip stick/tabl et rgnt non-auto w/o micrscp Brain Seamus DO Work Phone: Start: 05-10-2024 Urnls dip stick/tabl et rgnt non-auto w/o micrscp Brain Seamus DO Work Phone: Start: 04-20-2024 URETHRITIS/DISCHARGE PLUS VAGINITIS (HTRX) Brain Seamus DO Work Phone: Start: 04-20-2024 Urnls dip stick/tabl et rgnt non-auto w/o micrscp Brain Seamus DO Work Phone: Start: 04-20-2024 IGP,APTIMA HPV,AGE GDLN Brain Seamus DO Work Phone: Start: 04-20-2024 Microscopic observation [...] stick/tabl et rgnt non-auto w/o micrscp Brain Way DO Work Phone: Start: 02-13-2022 US scan of thyroid PHYS ICIAN NO FAMILY section Unknown Unk nown section Fazal Whiten er NEGATED: Highlighted row has not occurred! Total colonoscopy Unknown Unknown Plan of Treatment Date Care Activity Detail Author Start: 04-20-2027 Screening for malignant neoplasm of cervix Pap Smear [facility] Start: 03-23-2026 DTaP,Tdap and Td Vaccines (7 - Td or Tdap) DTaP,Tdap and Td Vaccines (7 - Td or Tdap) [facility] Start: 03-23-2026 Urine microalbumin profile [facility] Start: 2025 Tobacco Screening Tobacco Screening [facility] Start: 09-19-2024 End: 09-19-2024 Patient encounter procedure 09/19/2024 2:00 PM EST Routine [facility] [address] [address], DO [address] [place] [address] [facility] Start: 09-07-2024 End: 09-07-2024 Patient encounter procedure [facility] Comment on above: Arrived Start: 09-07-2024 End: 09-07-2025 US for US OB follow up transabdominal approach Imaging Routine size inconsistent with dates Expected: 09/07/2024, Expires: 09/07/2025 [facility] Work Phone: Comment on above: Expected: 09/07/2024, Expires: Start: 08-31-2024 End: 07-31-2025 Echo complete W/O contrast Echo complete W/O contrast Echocardiography Routine History of pericarditis Mild concentric left ventricular hypertrophy (LVH) 25 weeks gestation of Expected: 08/31/2024 (Approximate), Expires: 07/31/2025 [facility] Work Phone: Comment on above: Expected: 08/31/2024 (Approximate), Expi res: 07/31/2025 Start: 08-25-2024 [facility] Start: 08-23-2024 End: 08-23-2024 Patient encounter procedure 08/23/2024 11:00 AM EST Routine [facility] [address] [place] [address] DO [address] [facility] [address] [place] [address] Arrived [facility] Comment on above: Arrived Start: 08-02-2024 End: 08-02-2024 Telemedicine consultation with patient 08/02/2024 9:00 AM EST Telemedicine [facility] [place] [address] [place] [phone] Darcy Enriquez MD [address] [facility] [address] [place] [address] [facility] [place] Start: 07-27-2024 End: 07-27-2024 Patient encounter procedure 07/27/2024 11:00 AM EST Appointment [facility] [place] [address] [phone] [facility] [place] Start: 07-21-2024 End: 07-21-2024 Patient encounter procedure 07/21/2024 10:00 AM EST Appointment [facility] Cardiovascular [address] [place] [id number] [facility] Start: 07-11-2024 End: 07-11-2025 CBC panel [...] mellitus screening Expected: 07/11/2024 (Approximate), Expires: 07/11/2025 [facility] Comment on above: Expected: 07/11/2024 (Approximate), Expi res: 07/11/2025 Start: 07-11-2024 End: 07-11-2024 Patient encounter procedure 07/11/2024 10:10 AM EST Routine [facility] [address] [place] [phone], DO [address] [facility] [address] [place] [address] [facility] Start: 06-28-2024 [facility] Start: 2024 End: 2025 Echo complete W/O contrast Echo complete W/O contrast Echocardiography Routine 20 weeks gestation of History of pericarditis Expected: 2024, Expires: 2025 [facility] Work Phone: Comment on above: Expected: 2024, Expires: Start: 2024 End: 2024 Patient encounter procedure [facility] [place] Start: 06-12-2024 End: 10-13-2024 Alpha fetoprotein, maternal Alpha fetoprotein, maternal Lab Routine Second trimester 18 weeks gestation of Expected: 06/12/2024 (Approximate), Expires: 10/13/2024 [facility] Comment on above: Expected: 06/12/2024 (Approximate), Expi res: 10/13/2024 Start: 06-12-2024 End: 06-12-2025 US for US OB ANATOMY SINGLE W US OB CERVICAL LENGTH Imaging Routine Screening, , for anatomic survey Expected: 06/12/2024 (Approximate), Expires: 06/12/2025 [facility] Work Phone: Comment on above: Expected: 06/12/2024 (Approximate), Expi res: 06/12/2025 Start: 06-12-2024 End: 06-12-2024 Patient encounter procedure 06/12/2024 10:00 AM EDT Routine [facility] [address] [place] [id number], DO [address] [place] [address] [address] [place] [place], [place] [id number] Arrived [facility] Comment on above: Arrived Start: 06-07-2024 End: 06-07-2024 Patient encounter procedure 06/07/2024 10:50 AM EDT Routine [facility] [address] [place] [phone], DO [address] [facility] [address] [place] [address] [facility] Start: 05-10-2024 End: 05-10-2024 Patient encounter procedure [facility] Comment on above: Arrived Start: 04-20-2024 End: 04-20-2024 Patient encounter procedure [facility] Comment on above: Arrived Start: 04-16-2024 COVID-19 Vaccine ( season) COVID-19 Vaccine () [facility] Start: 04-16-2024 Influenza vaccination [facility] Start: [...] 08-16-2023 Behavioral Health Screening Behavioral Health Screening [facility] Start: 05-06-2023 US scan of thyroid US thyroid [facility] Start: 04-16-2023 Covid-19 Vaccine () Covid-19 Vaccine () [facility] Start: 04-16-2023 Influenza vaccination Influenza Vaccine (#1) [facility] Start: 04-08-2023 [facility] Start: 08-16-2022 DEPRESSION ASSESSMENT DEPRESSION ASSESSMENT [facility] Start: 04-16-2022 Influenza vaccination INFLUENZA (#1) [facility] Start: 08-16-2021 DEPRESSION ASSESSMENT DEPRESSION ASSESSMENT [facility] Start: 01-10-2021 COVID-19 VACCINE (3 - Booster) COVID-19 VACCINE (3 - Booster) [facility] Start: 2017 PAP TESTING PAP TESTING [facility] Start: 2017 Screening for malignant neoplasm of cervix [facility] Start: 2015 DTaP,Tdap and Td Vaccines (1 - Tdap) DTaP,Tdap and Td Vaccines (1 - Tdap) [facility] Start: 2015 Urine microalbumin profile DTAP,TDAP,TD (1 - Tdap) [facility] Start: 2014 Adult BMI Screening Adult BMI Screening [facility] Start: 2014 ANNUAL PCP TEAM CHRONIC DISEASE VISIT ANNUAL PCP TEAM CHRONIC DISEASE VISIT [facility] Start: 2014 HEPATITIS C SCREENING HEPATITIS C SCREENING [facility] Start: 2014 Hepatitis C screening Hepatitis C Screening [facility] Start: 2014 HIV SCREENING HIV SCREENING [facility] Start: 2014 HIV screening HIV Screening [facility] Start: 2010 PEDS TO ADULT TRANSITION ANNUAL ASSESSMENT PEDS TO ADULT TRANSITION ANNUAL ASSESSMENT [facility] Start: 2008 Depression Screening Depression Screening [facility] Start: 2008 PEDS TO ADULT TRANSITION INITIAL DISCUSSION PEDS TO ADULT TRANSITION INITIAL DISCUSSION [facility] Start: 2008 Tobacco Screening Tobacco Screening [facility] Start: 2007 HPV VACCINE (1 - 2-dose series) HPV VACCINE (1 - 2-dose series) [facility] Start: 2005 HPV Vaccine (1 - 2-dose series) HPV Vaccine (1 - 2-dose series) [facility] Start: 1996 COVID-19 VACCINE (#1) COVID-19 VACCINE (#1) [facility] Start: 1996 HEPATITIS B (1 of 3 - 3-dose series) HEPATITIS B (1 of 3 - 3-dose series) [facility] Bacteria identified in Urine by Culture Urine culture Microbiology Routine Missed menses Ordered: 04/07/2024 [facility] Comment on above: Ordered: 04/07/2024 CBC W Auto Differential panel - Blood CBC and differential Lab Routine Missed menses Ordered: 04/07/2024 [facility] Comment on above: Ordered: 04/07/2024 CHLAMYDIA TRACHOMATI S (GENITO/STI) CHLAMYDIA TRACHOMATIS (GENITO/STI) Lab Routine First trimester Screen for STD (sexually transmitted disease) Vaginal discharge Ordered: 04/20/2024 [facility] Comment on above: Ordered: 04/20/2024 Cytology Cervical or vaginal smear or scraping study Pap Smear Pathology and Cytology Routine Well woman exam with routine gynecological exam Ordered: 04/20/2024 [facility] Work Phone: Comment on above: Ordered: 04/20/2024 Hemoglobin A1c/Hemoglobin.total in Blood Hemoglobin A1c Lab Routine Missed menses Ordered: 04/07/2024 [facility] Comment on above: Ordered: 04/07/2024 Hepatitis B virus surface Ag [Presence] in Serum or Plasma by Immunoassay Hepatitis B surface antigen Lab Routine Missed menses Ordered: 04/07/2024 [facility] Comment on above: Ordered: 04/07/2024 Hepatitis C virus Ab [Presence] in Serum or Plasma by Immunoassay Hepatitis C antibody Lab Routine Missed menses Ordered: 04/07/2024 [facility] Comment on above: Ordered: 04/07/2024 HIV-1/HIV-2 antigen/antibody combination immunoassay HIV-1 and HIV-2 antibodies Lab Routine Missed menses Ordered: 04/07/2024 [facility] Comment on above: Ordered: 04/07/2024 Neisseria gonorrhoea e DNA [Presence] in Unspecified specimen by LAUREN with probe detection Neisseria gonorrhea DNA probe, direct Lab Routine First trimester Screen for STD (sexually transmitted disease) Vaginal discharge Ordered: 04/20/2024 [facility] Comment on above: Ordered: 04/20/2024 Patient referral [facility] Work Phone: Progesterone [Mass/volume] in Serum or Plasma [facility] Progesterone [Mass/volume] in Serum or Plasma [facility] Progesterone [Mass/volume] in Serum or Plasma [facility] Progesterone [Mass/volume] in Serum or Plasma [facility] Progesterone [Mass/volume] in Serum or Plasma [facility] Reagin Ab [Presence] in Serum by RPR RPR Lab Routine Missed menses Ordered: 04/07/2024 [facility] Comment on above: Ordered: 04/07/2024 Rubella antibody, IgG Rubella an tibody, IgG Lab Routine Missed menses Ordered: 04/07/2024 [facility] Comment on above: Ordered: 04/07/2024 SURESWAB(R) ADVANCED VAGINITIS PLUS, TMA SURESWAB(R) ADVANCED VAGINITIS PLUS, TMA Pathology and Cytology Routine First trimester Screen for STD (sexually transmitted disease) Vaginal discharge Ordered: 04/20/2024 [facility] Comment on above: Ordered: 04/20/2024 Thyrotropin [Units/volume] in Serum or Plasma TSH Lab Routine Missed menses Ordered: 04/07/2024 [facility] Comment on above: Ordered: 04/07/2024 [facility] End: 07-07-2024 XR MODIFIED BARIUM SWALLOW W SPEECH THERAPY XR MODIFIED BARIUM SWALLOW W SPEECH THERAPY Radiology Routine Dysphagia, unspecified type 1 Occurrences starting 06/08/2023 until 07/07/2024 [facility] Work Phone: Comment on above: 1 Occurrences starting 06/08/2023 until 07/07/2024 [facility] Work Phone: [facility] Immunizations Immunization Date Immunization Notes Care Provider Vaishali yo 10-06-2023 influenza virus vaccine, unspecified formulation Tyrone Rock [facility] 05-21-2023 influenza, injectabl e, 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, 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 free 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 Darwin Easterwood Work Phone: [facility] 05-21-2023 influenza, injectabl e, 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, contains 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 Darwin Easterwood Other [facility] [employer] Other 06-15-2022 influenza, injectabl e, 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, 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 free 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 Darwin Easterwood Work Phone: [facility] 06-15-2022 influenza, injectabl e, 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, contains 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 Darwin Easterwood Other [facility] Work Phone: 06-15-2022 influenza virus vaccine, unspecified formulation Francy Gan PA-C Work Phone: [facility] 06-15-2021 influenza nasal, unspecified formulation Ruby Whittington MD Work Phone: [facility] Work Phone: 06-15-2021 influenza virus vaccine, unspecified formulation Tyrone Rock [facility] 06-15-2021 influenza, injectabl e, 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, 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 free 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 Darwin Easterwood Work Phone: [facility] 06-15-2021 influenza, injectabl e, 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, contains 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 Darwin Easterwood Other [facility] Work Phone: 05-15-2021 influenza nasal, unspecified formulation Ruby Whittington MD Work Phone: [facility] Work Phone: 05-15-2021 influenza virus vaccine, unspecified formulation Tyrone Rock [facility] 05-15-2021 influenza, high dose seasonal, 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-free Unknown Unknown [facility] Work Phone: 11-15-2020 Pfizer-BioNTech COVID-19 Vacc 30 MCG/0.3ML Intramuscular Suspension Unknown Unknown [facility] 11-12-2020 COVID-19 vaccine, unknown product (NON-US) Ruby Whittington MD Work Phone: [facility] Work Phone: 10-24-2020 Pfizer-BioNTech COVID-19 Vacc 30 MCG/0.3ML Intramuscular Suspension Unknown Unknown [facility] 03-23-2016 tetanus toxoid, reduced diphtheria toxoid, and acellular pertussis vaccine, adsorbed Unknown Unknown [facility] Work Phone: 03-23-2016 varicella virus vaccine Unknown Unknown [facility] Work Phone: 03-01-2002 diphtheria, tetanus toxoids and acellular pertussis vaccine, unspecified formulation Unknown Unknown [facility] Work Phone: 03-01-2002 DTaP, unspecified formulation Tyrone Rock [facility] 03-01-2002 measles, mumps and rubella virus vaccine Unknown Unknown [facility] Work Phone: 03-01-2002 poliovirus vaccine, inactivated Unknown Unknown [facility] Work Phone: 03-01-2002 poliovirus vaccine, unspecified formulation Tyrone Rock [facility] 04-20-2001 hepatitis B vaccine, pediatric or pediatric/adolescent dosage Unknown Unknown [facility] Work Phone: 01-03-1998 diphtheria, tetanus toxoids and acellular pertussis vaccine, unspecified formulation Unknown Unknown [facility] Work Phone: 01-03-1998 DTaP, unspecified formulation Tyrone Rock [facility] 09-18-1997 measles, mumps and rubella virus vaccine Unknown Unknown [facility] Work Phone: 09-18-1997 varicella virus vaccine Unknown Unknown [facility] Work Phone: 03-30-1997 hepatitis B vaccine, pediatric or pediatric/adolescent dosage Unknown Unknown [facility] Work Phone: 1996 diphtheria, tetanus toxoids and acellular pertussis vaccine, unspecified formulation Unknown Unknown [facility] Work Phone: 1996 DTaP, unspecified formulation Tyrone Polancopsey [facility] 1996 trivalent poliovirus vaccine, live, oral Unknown Unknown [facility] Work Phone: 1996 diphtheria, tetanus toxoids and acellular pertussis vaccine, unspecified formulation Unknown [facility] Work Phone: 1996 DTaP, unspecified formulation Tyrone Polancopsey [facility] 1996 haemophilus influenz ae type b vaccine, conjugate unspecified formulation Unknown Unknown [facility] Work Phone: 1996 Hib, unspecified formulation Tyrone Polancopsey [facility] 1996 trivalent poliovirus vaccine, live, oral Unknown Unknown [facility] Work Phone: 1996 diphtheria, tetanus toxoids and acellular pertussis vaccine, unspecified formulation Unknown Unknown [facility] Work Phone: 1996 DTaP, unspecified formulation Tyrone Polancopsey [facility] 1996 diphtheria, tetanus toxoids and acellular pertussis vaccine, unspecified formulation Unknown Unknown [facility] Work Phone: 1996 DTaP, unspecified formulation Tyrone Polancopsey [facility] 1996 haemophilus influenz ae type b vaccine, conjugate unspecified formulation Unknown Unknown [facility] Work Phone: 1996 Hib, unspecified formulation Tyrone Rock [facility] 1996 measles, mumps and rubella virus vaccine Unknown Unknown [facility] Work Phone: 1996 varicella virus vaccine Unknown Unknown [facility] Work Phone: 1996 diphtheria, tetanus toxoids and acellular pertussis vaccine, unspecified formulation Unknown Unknown [facility] Work Phone: 1996 DTaP, unspecified formulation Tyrone Rock [facility] 1996 haemophilus influenz ae type b vaccine, conjugate unspecified formulation Unknown Unknown [facility] Work Phone: 1996 hepatitis B vaccine, pediatric or pediatric/adolescent dosage Unknown Unknown [facility] Work Phone: 1996 Hib, unspecified formulation Tyrone Rock [facility] 1996 trivalent poliovirus vaccine, live, oral Unknown Unknown [facility] Work Phone: 1996 hepatitis B vaccine, pediatric or pediatric/adolescent dosage Unknown Unknown [facility] Work Phone: Payers Date Payer Category Payer Self-pay [id number] 2023 Self-pay [id number] 2022 Private Health Insurance [id number] 2021 Unknown 2019 Commercial Managed Care - O [id number] 02.315 1996 Unknown [id number] 2.16.84 0.1.127267.3.579.2.593 1996 Unknown [id number] 2.16.8 40.1.081321.3.579.2.727 1996 Unknown [id number] 2.16.8 40.1.227585.3.579.2.727 1996 Unknown [id number] 2.16.8 40.1.184631.3.579.2.727 1996 Unknown [id number] 2.16.840.1.402875.3.579.2.1286 1996 Unknown [id number] 2.16.840.1.591339.3.579.2.1286 1996 Unknown [id number] 2.16.840.1.866170.3.579.2.1286 1996 Unknown [id number] 2.16.840.1.671649.3.579.2.1286 1996 Unknown [id number] 2.16.8 40.1.438154.3.579.2.727 1996 Unknown [id number] 2.16.8 40.1.151357.3.579.2.727 1996 Unknown [id number] 2.16.8 40.1.202565.3.579.2.727 1996 Unknown [id number] 2.16.8 40.1.048942.3.579.2.727 1996 Unknown [id number] 2.16.8 40.1.225933.3.579.2.727 1996 Unknown [id number] 2.16.84 0.1.921335.3.579.2.1259 1996 Unknown [id number] 2.16.84 0.1.387341.3.579.2.1259 1996 Unknown [id number] 2.16.84 0.1.062478.3.579.2.1259 1996 Unknown [id number] 2.16.84 0.1.725689.3.579.2.1259 1996 Unknown [id number] 2.16.84 0.1.552860.3.579.2.1259 1996 Unknown [id number] 2.16.84 0.1.864859.3.579.2.9 1996 Unknown [id number] 2.16.84 0.1.688825.3.579.2.1259 1996 Unknown [id number] .16.8 40.1.403647.3.579.2.7 1996 Unknown [id number] .16.8 40.1.760326.3.579.2.7 1996 Unknown [id number] .16.8 40.1.170385.3.579.2.727 1959 Unknown [id number] Unknown [id number] Unknown [id number] Unknown [id number] .16.8 40.1.876589.3.579.2.531 Unknown [id number] 2.16.8 40.1.225504.3.579.2.531 Unknown [id number] 2.16.8 40.1.355612.3.579.2.531 Unknown [id number] 2.16.8 40.1.270925.3.579.2.531 Unknown [id number] .16.8 40.1.495680.3.579.2.531 Unknown [id number] .16.8 40.1.149111.3.579.2.531 Unknown [id number] 2.16.8 40.1.416719.3.579.2.531 Unknown [id number] 2.16.8 40.1.946930.3.579.2.531 Unknown [id number] 2.16.8 40.1.335395.3.579.2.531 Unknown [id number] 2.16.8 40.1.835518.3.579.2.531 Unknown [id number] 2.16.8 40.1.960867.3.579.2.531 Unknown [id number] 2.16.8 40.1.882522.3.579.2.531 Unknown [id number] 2.16.8 40.1.770108.3.579.2.531 Social History Date Type Detail Facility Start: 07-14-2022 End: 03-21-2024 No alcohol use No alcohol use [place] [address] DO Work Phone: Start: 12-29-2020 End: 08-04-2023 Tobacco smoking status MNIS Never smoked tobacco (finding) [facility] Start: 1996 Sex Assigned At Female [facility] Start: 07-14-2022 End: 03-21-2024 Sex Assigned At [employer] [facility] [employer] Other Tobacco smoking status Never [facility] Tobacco smoking status [facility] Tobacco smoking consumption unknown [facility] Start: 1996 Sex Assigned At Not on file [facility] Start: 04-17-2022 End: 07-14-2022 Exposure to SARS-CoV-2 (event) Not sure [facility] Start: 07-14-2022 End: 2024 Tobacco use and exposure Smokeless tobacco non-user [facility] Start: 07-14-2022 End: 09-07-2024 Alcohol intake Lifetime non-drinker (finding) [facility] Start: 07-13-2022 Gender identity Identifies as female gender (finding) [facility] Start: 02-16-2024 [facility] Start: 03-19-2015 End: 09-15-2024 Sex Female (finding) [facility] Tobacco [facility] Comment on above: Denies Tobacco smoking status No Smoking Status Entered [facility] NEGATED: Highlighted rowStart: KATHY History of tobacco use Passive smoker [facility] Medical Equipment Procedure Code Equipment Code Equipment Origin al Text Equipment Identifier Dates Pen Harrison 31G X 5 MM Start: 05-18-2022 Goals Date Patient Goal Desired Activity /State Personal health goal Functional Status Date Assessment Result Facility 09-06-2024 Functional Status N/A [facility] 09-05-2024 Functional Status N/A [facility] 09-05-2024 Functional Status N/A [facility] 03-18-2024 Functional Status N/A [facility] 09-29-2023 Functional Status N/A [facility] 03-22-2023 Functional Status N/A [facility] 02-18-2022 Functional Status N/A [facility] Clinical Notes 01-14-2022 to 09-07-2024 [place] [...] H/O calculus of kidney during Tiffani's disease ([facility]) 02/2022 History of Obesity (BMI 30-39.9) Pericarditis HISTORY PAST MEDICAL HISTORY SOCIAL HISTORY Past Medical History: Diagnosis Date Anxiety Blood type, Rh positive H/O calculus of kidney during Tiffani's disease ([facility]) 02/2022 History of Obesity (BMI 30-39.9) [...] HIPOLITO Shore documented in this encounter [facility] 09-07-2024 Note History and Physical HOSPITAL REGULATIONS: [...] scheduled. Rogelio Nath M.D. leeroy Dictated: 09/05/2024 [id number] Transcribed: 09/05/2024 [facility] Comment on above: Result Comment: Elec tronically Signed By: Pham GALLAGHER, Rogelio Robins\.br\Date and Time Signed: 09/07/24 08:38 EST 09-06-2024 Hospital Discharg e instructions Patient Education 09/06/2024 16:15:07 Concussion, Adult, Ddnp-ea-Lxjo Concussion, Adult A concussion is a brain [...] if you are dizzy. General instructions Take olkz-zrt-ajfetvs and prescription medicines only as told by your doctor. Avoid taking strong pain medicines (opioids) after a concussion. Do not drink alcohol until your doctor says you can. Watch your symptoms and tell other people to do the same. Other problems can occur after a concussion. Tell your road worker, teachers, school nurse, school counselor, high school assistant football coach, or wellness trainer about your injury and symptoms. Tell [...] the National Suicide Prevention Lifeline at or 167. This is open 24 hours a day. Text the Crisis Text Line at 078589. This information is not intended to replace advice given to you by your health care provider. Make sure you discuss any questions you have with your health care provider. Document Revised: 12/25/2022 Document Reviewed: 12/25/2022 [facility] Patient Education 2023 [employer]. Follow Up Care 09/06/2024 13:58:27 With:[facility] [place] Address: [address] [place] [id number] [phone] Business (1) When:09/09/2024 16:14:40 Comments:Call to schedule a follow-up appointment with your primary care provider. Use Zofran as needed for nausea/vomiting. Return to the ED with any new or worsening symptoms. [facility] 09-06-2024 Note ED Patient Education Note [...] you are dizzy. General instructions ??? Take rrtt-mix-pmcvoes and prescription medicines only as told by your doctor. ??? Avoid taking strong pain medicines (opioids) after a concussion. ??? Do not drink alcohol until your doctor says you can. ??? Watch your symptoms and tell other people to do the same. Other problems can occur after a concussion. ??? Tell your road worker, teachers, school nurse, school counselor, high school assistant football coach, or wellness trainer about your injury and symptoms. Tell [...] You have any (more content not included)... [facility] 09-06-2024 Evaluation + Plan note Extrac [...] date 09/06/24 15:25:00 EST, 09/06/24 15:25:00 EST [facility] [id number] NoteDischarge Instructions Given Worsening The following Patient Education Materials have been given to the patient: ~~ [facility]MaterialC[facility] Evaluation + Plan note Extracted from: [...] Diagnostic Tests Pending * Urine Culture 09/05/24 [facility] 01-21-2025 Hospital Discharge instructions Patient Education 09/05/2024 04:35:45 Syncope, Adult, Sgcq-tp-Akty Syncope, Adult Syncope is when you pass [...] you until you feel better. Medicines Take ufrh-isa-mguchnr and prescription medicines only as told by [...] right away. Call your local emergency services ([address] Do not wait to see [...] provider. Document Revised: 12/11/2021 Document Reviewed: 12/11/2021 [facility] Patient Education 2023 [employer]. 09/05/2024 04:35:45 Nausea and Vomiting, Adult, Wrme-nq-Aior Nausea and Vomiting, Adult Nausea is feeling [...] fruit juice). ?Low-calorie sports drinks. Eat bland, nrdz-nn-vnfxvv foods in small amounts as you are able, such as: ?Bananas. ?Applesauce. ?Rice. ?Low-fat (lean) meats. ?Pearsall. ?Crackers. Avoid drinking fluids that have a lot of sugar or caffeine in them. This includes energy drinks, sports drinks, and soda. Avoid alcohol. Avoid spicy or fatty foods. General instructions Take ywjt-ayr-lyfljgs and prescription medicines only as told by your doctor. Drink enough fluid to keep your pee (urine) pale yellow. Wash your hands often with soap and water for at least 20 seconds. If you cannot use soap and water, use hand refining engineer. Make sure that everyone in your home [...] your doctor about eating and drinking. Take lzxb-mhv-jtdhqxr and prescription medicines only as told by your doctor. Contact your doctor if your symptoms get worse or you have new symptoms. Keep all follow-up visits. This information is not intended to replace advice given to you by your health care provider. Make sure you discuss any questions you have with your health care provider. Document Revised: 02/06/2022 Document Reviewed: 02/06/2022 [facility] Patient Education 2023 [employer]. 09/05/2024 04:35:45 Diarrhea, Adult, Kxan-gh-Xqnf Diarrhea, Adult Diarrhea is when you pass [...] regular sports drinks. ?Avoid alcohol. Eat bland, dlrq-ht-pnwkys foods in small amounts as you are able. These foods include: ?Bananas. ?Applesauce. ?Rice. ?Low-fat (lean) meats. ?Pearsall. ?Crackers. Avoid spicy or fatty foods. Medicines Take vbwt-ixx-zgmnrgp and prescription medicines only as told by your doctor. If you were prescribed antibiotics, take them as told by your doctor. Do not stop taking them even if you start to feel better. General instructions Wash your hands often using soap and water for 20 seconds. If soap and water are not available, usehand refining engineer. Others in your home should wash their [...] provider. Document Revised: 01/19/2023 Document Reviewed: 01/19/2023 [facility] Patient Education 2023 [employer]. 09/05/2024 04:35:45 Dehydration, Adult, Hxnv-hb-Txqw Dehydration, Adult Dehydration is a condition in [...] or sea (high in altitude). The thinner, bone drier operator air causes more fluid loss. Doing exercises [...] of fat or sugar. General instructions Take pxom-bsz-esmnofh and prescription medicines only as told by [...] provider. Document Revised: 03/01/2023 Document Reviewed: 03/01/2023 [facility] Patient Education 2023 [employer] Follow Up Care 09/05/2024 03:04:39 With:[facility] [address] Address: [address] , [place] [address]- Business (1) When:09/07/2024 Comments:Call 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architectural superintendent prescriptions at [facility] Address: [address] [place] [address] [phone] Business (1) When:09/08/2024 Comments:Please follow-up with Dr. Way for further evaluation management. Please return to the ED for any new or worsening symptoms. [facility] [phone] NoteProgress Note-Nurse @2530 OB RN arrived in patient room in ER room 14. Patient placed on & ctx monitor. Patient ctx every 2-5 min 40-60 sec with some 20-30sec irritability. Ctx mild to palpation. Pt rates them 4/10 on pain scale. Infant reactive for gestation with baseline HR of 130. RN will report finding to OB Dr Nath and ask about admission for further evaluation on OB unit.[facility]01-21-2025 NoteED Patient Education Note Gastroenterology Nausea [...] ? Low-calorie sports drinks. ??? Eat bland, jhkz-uy-zkidfz foods in small amounts as you are able, such as: ? Bananas. ? Applesauce. ? Rice. ? Low-fat (lean) meats. ? Pearsall. ? Crackers. ??? Avoid drinking fluids that have a lot of sugar or caffeine in them. This includes energy drinks, sports drinks, and soda. ??? Avoid alcohol. ??? Avoid spicy or fatty foods. General instructions ??? Take bklv-qir-pebbgxp and prescription medicines only as told by your doctor. ??? Drink enough fluid to keep your pee (urine) pale yellow. ??? Wash your hands often with soap and water for at least 20 seconds. If you cannot use soap and water, use hand refining engineer. ??? Make sure that everyone in your [...] doctor about eating and drinking. ??? Take rptj-shd-yuyssqq and prescription medicines only as told by your doctor. ??? Contact your doctor if your symptoms get worse or you have new symptoms. ??? Keep all follow-up visits. This information is not intended to replace advice given to you by your health care provider. Make sure you discuss any questions you have with your health care provider. Document Revised: 02/06/2022 Document Reviewed: 02/06/2022 [employer] Patient Education ? 2023 [employer] Infectious Disease Diarrhea, Adult Diarrhea is [...] Take an ORS (ora (more content not included)...[facility] 08-25-2024 Evaluation note* Diagnosis Onset Date Resolution Status Admit Date Class 2 obesity with body ma ss index (BMI) of 37.0 to 37.9 in adult acute August 25 11:56am Tiffani's disease acute Jan2024 11:56am Hypothyroidism acute August 252024 11:56am Mild left ventricular hypertrophy acute August 25 11:56am Second trimester acute August 25, 2024 11:56am [facility] Work Phone: 1(747) 305-184901-08-2025 History of Present illness Narrative* Aleisha Abreu LPN - 08/23/2024 11:00 AM EST Reason for [...] H/O calculus of kidney during Tiffani's disease ([facility]) 02/2022 History of Obesity (BMI 30-39.9) Pericarditis HISTORY PAST MEDICAL HISTORY SOCIAL HISTORY Past Medical History: Diagnosis Date Anxiety Blood type, Rh positive H/O calculus of kidney during Tiffani's disease ([facility]) 02/2022 History of Obesity (BMI 30-39.9) [...] nursing note reviewed. Exam conducted with a logistics project manager present. Vitals: Estimated body mass index is [...] Brain Way DO documented in this encounterSaint John's Aurora Community [id number] History of Present illness Narrative* Aleisha Abreu [...] nursing note reviewed. Exam conducted with a logistics project manager present. Vitals: Estimated body mass index is [...] Brain Way DO documented in this encounterSaint John's Aurora Community [id number] History of Present illness Narrative* Laura Herron [...] male Have you been seen here at [facility] in a previous ? No Recent ER visits or hospitalizations? no Bring blood sugar log or meter with you today? (Please bring them with you for every visit at [facility]) n/a Flu vaccine (Jun-October)? Yes [...] effusion. Also she was then evaluated by button pusher who told her that she had pericarditis and that resolved with a taking Motrin however she did not had an echocardiogram. Saw Dr. Coronado. 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 Yes NotIn System Ref Prov hk879-deir-onnbk acid ( 19) 29 mg iron- 1 [...] would recommend she establishes care with a lambskin trimmer for it to be further evaluated 7. with history of section, antepartum Risks of the section discussed desires a repeat 8. History of macrosomia in in prior , currently At risk of [...] Please refer her locally to see a lambskin trimmer for the incidental finding on the CT [...] Hayden Reilly MD, FACOG (she/hers) Maternal- Medicine [facility] [address] [place] [address] This document was created with [employer] technology. Though I make every effort to review the dictation as it is transcribed, on occasion the spoken word can be misinterpreted by the technology leading to inappropriate words, phrases, or sentences. This note is addressed to the requesting provider as a consultation for clinical guidance. Specificmedical abbreviations are occasionally used and those are generally approved by the [place]?Board of?Obstetrics and?Gynecology?as well as?Lauryn s abbreviations. The above plan of care was based solely on the diagnoses for which a consultation was requested. ?More frequent testing may be indicated based on her other medical/obstetrical conditions. The management of other or medical conditions is beyond the scope of requested consultation and will c ontinue to be followed by the primary ice cream freezer or primary care provider. Note to patient: [...] opinion of the practitioner. documented in this encounterBerger HospitalRespi [id number] Radiology Diagnostic study [facility] [address] [address] Ultrasound Report Signed Patient: Tawnya Herring MR#: [id number] : 1995 Acct:[id number] Age/Sex: 28 / F ADM Date: 4 Loc: Room: Type: [facility] Attending Dr: Brain Way DO Ordering [...] Norton Jr., D.O.06/22/2024 4:00 PM Dictation Location: [facility] Tech: Rae De Paz Transcribed By: AGUILAR 06/22/24 1600 Dictated By: Zay Norton Jr, DO 06/22/24 1552 Signed By: 06/22/24 1600 [facility]10-28-2024 History of Present illness Narrative * [...] H/O calculus of kidney during Tiffani's disease ([facility]) 02/2022 History of Obesity (BMI 30-39.9) Pericarditis HISTORY PAST MEDICAL HISTORY SOCIAL HISTORY Past Medical History: Diagnosis Date Anxiety Blood type, Rh positive H/O calculus of kidney during Tiffani's disease ([facility]) 02/2022 History of Obesity (BMI 30-39.9) [...] Brain Way DO documented in this encounterSaint John's Aurora Community HospitalAplylylvne32-47-1253 Evaluation note* Diagnosis Onset Date Resolution Status Admit Date Well adult exam noneactive May 11, 2024 10:46am [facility] Work Phone: 1(211) 597-545109-25-2024 History of Present illness Narrative* Aleisha Abreu [...] H/O calculus of kidney during Tiffani's disease ([facility]) 02/2022 History of Obesity (BMI 30-39.9) Pericarditis HISTORY PAST MEDICAL HISTORY SOCIAL HISTORY Past Medical History: Diagnosis Date Anxiety Blood type, Rh positive H/O calculus of kidney during Tiffani's disease ([facility]) 02/2022 History of Obesity (BMI 30-39.9) [...] nursing note reviewed. Exam conducted with a logistics project manager present. Vitals: Estimated body mass index is [...] Brain Way DO documented in this encounterSaint John's Aurora Community HospitalRbmhdovjze15-28-4720 History of Present illness Narrative* Coral Rg [...] H/O calculus of kidney during Tiffani's disease ([facility]) 02/2022 History of Obesity (BMI 30-39.9) Pericarditis HISTORY PAST MEDICAL HISTORY SOCIAL HISTORY Past Medical History: Diagnosis Date Anxiety Blood type, Rh positive H/O calculus of kidney during Tiffani's disease ([facility]) 02/2022 History of Obesity (BMI 30-39.9) [...] nursing note reviewed. Exam conducted with a logistics project manager present. Vitals: Estimated body mass index is [...] obtained without difficulty and patient was given [facility] order to have obtained. Patient advised to take ASA 81mg. Orders Placed This Encounter Procedures CHLAMYDIA TRACHOMATIS (GENITO/STI) Neisseria gonorrhea DNA probe, direct POCT urinalysis dipstick manually resulted Follow Up: Patient is to return to our office in 4 weeks for routine OB appointment Documented by Coral Rg LPN on behalf of: Brain Way DO documented in this encounterSaint John's Aurora Community HospitalSxsvgfwfub34-21-2632 History of Present illness Narrative* Thelma Elizabeth [...] H/O calculus of kidney during Tiffani's disease ([facility]) 02/2022 History of Obesity (BMI 30-39.9) Pericarditis [...] or undercooked meat, and stay away from [facility]. Patient has also been advised to not [...] Thelma Elizabeth LPN documented in this encounterSaint John's Aurora Community HospitalSsawpdtmhp74-54-2427 Hospital Discharge instructions Patient Education 03/18/2024 12:15:03 [...] provider. Document Revised: 01/31/2021 Document Reviewed: 01/31/2021 [employer] Patient Education 2022 [employer]. 03/18/2024 12:15:03 Subchorionic Hematoma Subchorionic Hematoma A [...] provider. Document Revised: 04/28/2021 Document Reviewed: 04/28/2021 [employer] Patient Education 2022 [employer]. Follow Up Care 03/18/2024 08:08:01 With:Rogelio Nath Address: [address], [address] [place] [address]- Business (1) When:03/21/2024 11:54:39 With:DARWIN JONES Address: [address] [place] [place] [address]- [phone] Business (1) When:Within 3 Day(s) [facility] 08-03-2024 NoteED Patient Education Note Obstetrics [...] provider. Document Revised: 01/31/2021 Document Reviewed: 01/31/2021 [facility] Patient Education ? 2022 [employer]. Subchorionic Hematoma A hematoma is a collection of blood outside of the blood vessels. A subchorionic hematoma is a collection of blood between the outer wall of the embryo (chorion) and the inner wall of the uterus. This condi (more content not included)...[facility]04-04-2024 NoteHNO ID: [id number] Author: RUBY WHITTINGTON MD Service: ? Author [...] RTN 1 year. Ruby Whittington MD Endocrinology StaffSt. Rita'[facility] Hospital04-04-2024 History of Present illness Narrative* Ruby [...] Whittington MD Endocrinology Staff documented in this encounterMiami [facility] Hospital04-04-[facility]24 Instructions* Patient Instructions* Odalis Greene - 11/18/2023 7:58 AM EDT Thank you for choosing the [facility] Department of Endocrinology, Diabetes and Metabolism. Did you know that you need to call 48 hours in advance of your scheduled visit, if you are unable to make your appointment? The [facility]inology [facility] Met[facility] thanks you for your commitment, because patients not showing to their appointment results in a lost opportunity for patients to receive world class health care at the [facility]. To Cancel an appointment, please choose one of the following: - Call the Appointment Call Center at [phone] - From [facility], Go to Appointments - Cancel Appts If cancelling, consider your need to reschedule to prevent further delays in your care. To Schedule an appointment, please choose one of the following: - Call the Appointment Call Center at [phone] - From [employer], Go to Appointments - Request an Appt documented in this encounterMiami Valley Hospital02-14-2024 Hospital Discharge instructions Patient Education 09/29/2023 [...] numbers. This can be done either in [place] ([place] or metric measurements. Note that charts and online BMI calculators are available to help you find your BMI quickly and easily without having to do these calculations yourself. To calculate your BMI in [place] ([place] measurements: 1.Measure your weight in pounds [...] Centers for Disease Control and Prevention: www.cdc.gov [place] Heart Association: www.heart.org National Heart, Lung, and Blood [place]: www.nhlbi.nih.gov Summary Body mass index (BMI) is a number that is calculated from a person's weight and height. BMI may help estimate how much of a person's weight is composed of fat. BMI can help identify thosewho may be at higher risk for certain medical problems. BMI can be measured using Lao measurements or metric measurements. BMI charts are used to identify whether you are underweight, normal weight, overweight, or obese. This information is not intended to replace advice given to you by your health care provider. Make sure you discuss any questions you have with your health care provider. Document Revised: 04/24/2020 Document Reviewed: 03/01/2020 [facility] Patient Education 2022 [employer]. 09/29/2023 11:04:59 Sinus Infection, Adult Sinus Infection, [...] saline washes). ?Medicines that treat allergies (antihistamines). ?Srut-gso-whmbjui pain relievers. If caused by bacteria, your [...] at home: Medicines Take, use, or apply zjhj-vtl-vgjpjrl and prescription medicines only as told by [...] and water are not available, use hand refining engineer. Do not smoke. Avoid being around people [...] provider. Document Revised: 07/07/2022 Document Reviewed: 07/07/2022 [facility] Patient Education 2022 [employer]. Follow Up Care 09/29/2023 09:12:00 With:DARWIN JONES CNP Address: [address] [place] [address] [place] [address]- When: Unknown [facility] 02-06-2024 Evaluation note* Encounter Date [...] BMI is required on scripts in the [facility]. Sep, Other *Progress note was completed with the assistance of voice recognition software for dictation purposes. Please excuse any grammatical errors that were not corrected during review process. [employer] Other 01-10-2024 Evaluation note* Encounter Date Diagnosis [...] that were not corrected during review process. [employer] Other 12-01-2023 Miscellaneous Notes* Telephone Encounter - Kenan Gomez - 07/16/2023 9:39 AM EST LVM to let patient know their appt has been rescheduled with Dr. Whittington. documented in this encounterMiami Valley Hospital11-08-2023 Evaluation note* Encounter Date Diagnosis Assessment [...] comfortable prescribing this medication at this time. [employer] Other 10-24-2023 NoteHNO ID: [id number] Author: Francy Gan PA-C Service: ? Author Type: Physician Tosser Type: Progress Notes Filed: 06/08/2023 2:53 PM [...] will be in touch with results via [employer] HPI: Tawnya is a 27 year old [...] testing/treatment Medical Decision Making Level: 3 - [facility]St[facility] History of Present illness Narrative* Francy [...] will be in touch with results via [employer] HPI: Tawnya is a 27 year old [...] Level: 3 - Low documented in this encounterMiami Valley Hospital10-24-2023 Instructions* Patient Instructions* Francy Gan PA-C - 06/08/2023 2:16 PM EDT Continue the omeprazole for another 1.5 months documented in this encounterMiami Valley Hospital10-11-2023 Evaluation note* Encounter Date Diagnosis Assessment [...] that were not corrected during review process. [employer] Other 09-13-2023 Evaluation note* Encounter Date Diagnosis [...] that were not corrected during review process. [employer] Other 09-01-2023 Evaluation note* Encounter Date Diagnosis [...] SCANNED INTO PATIENT CHART AND FAXED TO [facility]. Apr, Other We did briefly discussed the [...] that were not corrected during review process. [employer] Other 08-08-2023 Hospital Discharge instructions Patient Education 03/22/2023 22:52:44 Urinary Tract Infection, Adult, Hwor-sy-Vfvb Urinary Tract Infection, Adult A urinary tract [...] Follow these instructions at home: Medicines Take twge-kjt-abaiwfq and prescription medicines only as told by [...] provider. Document Revised: 03/14/2021 Document Reviewed: 03/14/2021 [facility] Patient Education 2022 [employer]. Follow Up Care 03/22/2023 19:54:03 With:DARWIN JONES Address: [address] [place] [phone]- [phone] Business (1) When:03/25/2023 Comments:Follow-up with your primary care provider in 3 to 5 days. If symptoms worsen, do not improve, or new symptoms arise please report back to emergency department for further evaluation. [facility]08-07-2023 Evaluation + Plan note Diagnostic Tests Pending * Urine Culture 03/22/23 [facility]03-02-2023 Evaluation note* Encounter Date Diagnosis Assessment Notes Treatment Notes Treatment Clinical Notes Oct, Nausea & vomiting (ICD-10 - R11.2) [employer] Other 02-20-2023 Evaluation note* Encounter Date Diagnosis [...] Encounter for weight management (ICD-10 - Z76.89) [employer] Other 02-13-2023 Miscellaneous Notes* Addendum Note - [...] daily. Ruby Whittington MD documented in this encounterMiami Valley Hospital01-18-2023 Evaluation note* Encounter Date Diagnosis Assessment [...] Encounter for weight management (ICD-10 - Z76.89) [employer] Other 01-10-2023 Evaluation note* Encounter Date Diagnosis [...] as inspiration Patient set the following goals: [employer] Other 12-16-2022 Evaluation note* Encounter Date Diagnosis [...] E06.3) She was recently seen by an supervisory lifeguard at [facility] for elevated TSH. She is currently on adequate supplementation and will follow up with them. Jul, Daytime sleepiness (ICD-10 - R40.0) Continue to work on good sleep hygiene and control factors that she can.This could also improve with additional water intake. Jul, Mild depression (ICD-10 - F32.9) 16 Jul, 2022 Encounter for weight management (ICD-10 - Z76.89) [employer] Other 11-29-2022 History of Present illness Narrative* Ruby Whittintgon MD - 07/14/2022 9:06 AM EST Answers [...] Thyroid problem. 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 [address] [place] [id number] documented in this encounterMiami Valley Hospital11-29-2022 Instructions* Patient Instructions* Soo Begum Ma - 07/14/2022 8:46 AM EST Thank you for choosing the [facility] Department of Endocrinology, Diabetes and Metabolism. Did you know that you need to call 48 hours in advance of your scheduled visit, if you are unable to make your appointment? The [facility] thanks you for your commitment, because patients not showing to their appointment results in a lost opportunity for patients to receive [facility] health care at the [facility]. To Cancel an appointment, please choose one of the following: - Call the Appointment Call Center at [phone] - From [facility], Go to Appointments - Cancel Appts If cancelling, consider your need to reschedule to prevent further delays in your care. To Schedule an appointment, please choose one of the following: - Call the Appointment Call Center at [phone] - From [facility], Go to Appointments - Request an Appt documented in this encounterMiami Valley Hospital11-02-2022 Evaluation note* Encounter Date Diagnosis Assessment [...] samples and titrate her up slowly until [facility] insurance kicks in in August. We [...] will discuss at later date if needed. [employer] Other 10-20-2022 Evaluation note* Encounter Date Diagnosis [...] Pt understood and agreed to tx plan. [employer] Other 10-12-2022 Evaluation note* Encounter Date Diagnosis [...] patient set personal goal using given handout. [employer] Other 10-10-2022 Miscellaneous Notes* Telephone Encounter - Linn Hancock - 05/25/2022 2:35 PM EDT LVM for patient that appt on 05/[address] George has been rescheduled to 07/[facility] at [facility] with Dr. Robertson. sending mail reminder as well. documented in this encounterMiami Valley Hospital10-10-2022 Evaluation note* Encounter Date Diagnosis Assessment Notes Treatment Notes Treatment Clinical Notes May, Tiffani's disease (ICD-10 - E06.3) [facility] Other 10-03-2022 Evaluation note* Encounter Date Diagnosis [...] admits to some daytime sleepiness with an Jasper score of 7. Her Mallampati is not [...] of a comprehensive approach to obesity management [employer] Other 09-02-2022 Evaluation note* Encounter Date Diagnosis [...] to start the weight management program at [facility] in the coming months.Nothing further needed [...] that were not corrected during review process. [employer] Other 07-07-2022 Hospital Discharge instructions Patient Education [...] Follow these instructions at home: Medicines Take tdfk-ppm-idgjahn and prescription medicines only as told by [...] 04/27/2002 Document Revised: 08/05/2018 Document Reviewed: 05/14/2017 [facility] Patient Education 2020 [employer]. 02/18/2022 22:49:49 Migraine Headache Migraine Headache A [...] Follow these instructions at home: Medicines Take vqys-hhm-jgpewwg and prescription medicines only as told by your health care provider. Ask your health care provider if the medicine prescribed to you: ?Requires you to avoid driving or using heavy machinery. ?Can cause constipation. You may need to take these actions to prevent or treat constipation: ?Drink enough fluid to keep your urine pale yellow. ?Take pfwb-fxn-dteljod or prescription medicines. ?Eat foods that are [...] 08/02/2006 Document Revised: 11/24/2019 Document Reviewed: 09/14/2019 [facility] Patient Education 2020 [employer] Follow Up Care 02/18/2022 20:32:17 With:DARWIN JONES Address: [address] [place] [phone] Business (1) When:Within 3 Day(s) [facility]07-06-2022 Evaluation + Plan noteExtracted from: Title:ED [...] voices understanding and is agreeable to plan. [facility]07-06-2022 Evaluation note* Encounter Date Diagnosis Assessment [...] and remind her of lab draw at [facility]. Feb, Thyromegaly (ICD-10 - E01.0) Discussed [...] that were not corrected during review process. [employer] Other 07-01-2022 History general Narrative - Reported* Type Description Date Medical History Anxiety Medical History pericardi tis- Resolved cardiology signed off Medical History Kidney stones during Medical History Tiffani's disease February 2022 Medical History Abnormal thyroid ult rasound February 2022 work-up pending by ENT Surgical History 2019 Surgical History Cystoscopy 05/2021 Surgical History 2020 Hospitalization History See surgical hx [facility] Other 07-01-2022 History general Narrative - Reported* Type Description Date Medical History Anxiety Medical History pericardi tis- Resolved cardiology signed off Medical History Kidney stones during Medical History Tiffani's disease February 2022 Medical History Abnormal thyroid ult rasound February 2022 work-up pending by ENT Medical History Parathyroid adenoma Surgical History 2018 Surgical History Cystoscopy 05/2021 Surgical History 2020 Hospitalization History See surgical hx [facility] Other 06-29-2022 Evaluation note* Encounter Date Diagnosis [...] that were not corrected during review process. 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 documented in this encounter [facility]* Diagnosis 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 documented in this encounter [facility]Eval[facility]* Diagnosis Dysphagia, unspecified type- Primary LPRD (laryngopharyngeal reflux disease) Other diseases of larynx documented in this encounter [facility]Eval[facility] [place]* Diagnosis Onset Date Resolution Status Obesity acute [facility] Work Phone: Evaluation note* Diagnosis 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 Irregular menstruation, unspecified Female infertility Female infertility of unspecified origin Calculus of kidney documented in this encounter [facility]* Diagnosis Onset Date Resolution Status Obesity acute Class 2 obesity with body ma ss index (BMI) of 37.0 to 37.9 in adult acute [facility] Work Phone: evaluation note* Diagnosis Onset Date Resolution Status Obesity acute Class 2 obesity with body ma ss index (BMI) of 37.0 to 37.9 in adult acute Class 2 obesity with body ma ss index (BMI) of 37.0 to 37.9 in adult acute [facility] Work Phone: evaluation note* Diagnosis Onset Date Resolution Status Class 2 obesity with body ma ss index (BMI) of 37.0 to 37.9 in adult acute Class 2 obesity with body ma ss index (BMI) of 37.0 to 37.9 in adult acute [facility] Work Phone: evaluation note* Diagnosis Onset Date Resolution Status Class 2 obesity with body ma ss index (BMI) of 37.0 to 37.9 in adult acute [facility] Work Phone: evaluation note* Diagnosis Onset Date Resolution Status Well adult exam noneactive [facility] Work Phone: evaluation note* Diagnosis Second trimester state, incidental 18 weeks gestation of Screening, , for anatomic survey Encounter for anatomic survey documented in this encounter [facility] [employer]* Diagnosis 20 weeks gestation of - [...] type Depression affecting [facility] Diagnosis 22 weeks gestation of Second trimester state, incidental Nausea and vomiting during Diabetes mellitus screening Screening for diabetes mellitus documented in this encounter [facility]* Diagnosis History of pericarditis- Primary Mild concentric left ventricular hypertrophy (LVH) 25 weeks gestation of documented [facility]* Diagnosis Missed menses documented in this encounter [facility]* Diagnosis First trimester state, incidental Well woman exam with routine gynecological exam Routine gynecological examination Screen for STD (sexually transmitted disease) Screening examination for venereal disease Vaginal discharge Leukorrhea, not specified as infective documented in this encounter [facility]* Diagnosis Second trimester state, incidental documented in this encounter [facility]* Diagnosis 29 weeks gestation of Third trimester state, incidental Gastroesophageal reflux in documented in this encounter [facility]* Diagnosis Third trimester state, incidental 31 weeks gestation of size inconsistent with dates documented in this encounter [facility] HealthcareHistory general Narrative - Reported* Type Description [...] Surgical History 2020 Hospitalization History See surgical Ever[facility] Other Histibx general Narrative - Reported* Type Description Date [...] Surgical History 2020 Hospitalization History See surgical Everwise Other Hisugvb general Narrative - Reported* Type Description Date [...] Surgical History 2020 Hospitalization History See surgical Ever[facility] Other History of Present illness Narrative* Patient [...] no other testing or intervention appears necessary. [facility] 600 DO Work Phone: Hospital course Narrative No data available for this section [facility]ructionsNot on filedocumented in this encounter [facility] SystemInstructions* Attachments The following attachments cannot be sent through Care Everywhere. * Preeclampsia (Lao) [facility] SystemInstructionsNot on file documented in [facility] SystemProgress note No data available for this section [facility] Reason Dr. 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) Referral Organization [facility] Referring Provider First Name Darwin Referring Provider [facility] Referring Provider Specialty Nurse Pract itioner Referred Provider Specialty Endocrinolog y Referral Priority Routine Ever[facility] Other Reason for referral (narrative)* Diagnostic Procedure Only (Routine) - Pending Review Specialty Diagnoses / Procedures Referred By Clint scott Referred To Contact XR IMAGING Diagnoses Dysphagia, unspecified type Procedures XR MODIFIED BARIUM SWALLOW W SPEECH THERAPY RADIOLOGIC EXAM SWALLOW FUNCTION CONTRAST STUDY Francy Gan PA-C [address] [place] [id number] Xr Imaging [id number] Referral ID Status Reason Start Date Expiration Date Visits Requested Visits Authorized [id number] Pending Review Auto-Generat ed Referral 3 07/07/2024 1 1 [facility] Chief Complaint TAWNYA HERRING is being [...] 1 2:51pm z34.92 z3a.18 z86.39 z34.92 June 13t h2023 7:51am Chief Complaint Admit Date z36.89 June 22, 2024 1 2:51pm z34.92 z3a.18 z86.39 z34.92 June 13t h2023 7:51am z86.39 July 31, 2024 8:43am LVH/20 wks August 25, 2024 1 1:56am Chief Complaint Admit Date 36.June 22, 2024 1 2:51pm z34.92 z3a.18 z86.39 z34.92 June 13t 2023 7:51am z86.39 July 31, 2024 8:43am LVH/20 [...] 11:56am Second trimester August 25, 2024 11:56am Chief Complaint Admit Date z36.89 June 22, 2024 1 2:51pm z34.92 z3a.18 z86.39 z34.92 June 28t 2023 7:51am z86.39 July 31, 2024 8:43am LVH/20 wks August 25, 2024 1 1:56am I51.7 August 25, 2024 1 2:02pm Amb Documentation September 07, 2024 1 :42pm I51.7 September 14, 2024 9 :43am Reason for Referral Reason ENT- [facility]- thyromegal y/abnormal US/dysphagia Diagnosis 1 Dysphagia, unspecifi ed type (R13.10) Referral Organization [facility] Referring Provider First Name Darwin Referring Provider Last Name [facility] Referring Provider Specialty Nurse Pract itkwasir Referred Organization [facility] Referred Address [address] [place], [place],[address] Referred Provider Specialty Ear, Nose an d Throat Referral Priority Routine Reason ABNORMAL US OF THYRO ID Newly discovered Hashimotos Diagnosis 1 Thyromegaly (E01.0) Referral Organization [facility] Family Medicin e [place] Referring Provider First Name Darwin Referring Provider Last Name [facility] Referring Provider Specialty Nurse Pract itkwasir Referred Provider Specialty Ear, Nose an d Throat Referral Priority Routine Additional Source Comments INFORMATION SOURCE (unrecogn ized section and content) DATE CREATED AUTHOR 09/04/2021 [employer] DATE CREATED AUTHOR AUTHOR'S ORGANIZ ATION 12/18/2022 [facility] DATE CREATED AUTHOR AUTHOR'S ORGANIZ ATION 11/22/2023 [facility] DATE CREATED AUTHOR AUTHOR'S ORGANIZ ATION 03/20/2024 [facility] DATE CREATED AUTHOR AUTHOR'S ORGANIZ ATION 08/05/2024 [facility] DATE CREATED AUTHOR AUTHOR'S ORGANIZ ATION 09/06/2024 [facility] DATE CREATED AUTHOR AUTHOR'S ORGANIZ ATION 09/08/2024 [facility] DATE CREATED AUTHOR AUTHOR'S ORGANIZ ATION 09/09/2024 [facility] DATE CREATED AUTHOR AUTHOR'S ORGANIZ ATION 09/13/2024 [facility] DATE CREATED AUTHOR AUTHOR'S ORGANIZ ATION 09/14/2024 [facility] DATE CREATED AUTHOR AUTHOR'S ORGANIZ ATION 09/16/2024 [facility] Care Teams (unrecognized sec tion and content) [...] [address] Attending Provider Active Start: [facility] 2023 End: November 01, 2023 Team Status: [...] Darwin Jones APRN Primary Care Provider Active Addi Ortega DO [facility] Attending Provider Active Team Status: Inactive Member [...] Active Saad Valera DO Attending Provider Active Extrusion Die Coordinator Relationship Specialty Start Date End Date Darwin Jones, AMIE [address] [address] Referring Family Medicine 04/22/22 Extrusion Die Coordinator Relationship Specialty Start Date End Date Darwin Jones CNP [address] [address] Referring Family Medicine 04/22/22 Team Status: Inactive Member Role Status Dates Darwin Jones APRN Primary Care Provider Active Jeovanny Quiros DO Emergency Provider Active Extrusion Die Coordinator Relationship Specialty Start Date End Date Darwin Jones CNP [address] [address] Referring Family Medicine 04/22/22 Extrusion Die Coordinator Relationship Specialty Start Date End Date Darwin Jones CNP [address] [address] Referring Family Medicine 04/22/22 Team Status: Inactive Member Role Status Dates Darwin Jones APRN Attending Provider Active Start: July 23, 2023 End: July 23, 2023 Team Status: Inactive Member Role Status Dates Darwin Jones APRN Attending Provider Active Start: August 25, 2023 End: August 25, 2023 Extrusion Die Coordinator Relationship Specialty Start Date End Date Darwin Jones CNP [address] [address] Referring Family Medicine 04/22/22 Team Status: Inactive Member Role Status Dates Darwin Jones APRN Primary Care Pr ovider, Attending Provider Active Start: December 24, 2023 End: December 24, 2023 Team Status: Inactive Member Role Status Dates Darwin Jones APRN Primary Care Provider Active Start: December 27, 2023 End: December 27, [address] Attending Provider Active Start: Maria castillo 2023 End: December 27, 2023 Team Status: [...] 2024 End: February 24, [address] DO Attending Provider Active Start : February 24, 2024 End: February 24, 2024 Team Status: Inactive Member Role Status Dates Darwin Jones APRN Primary Care Provider Active Start: April 06, 2024 End: April 06, 2024 Addi Ortega - DO [facility] Attending Provider Active Start: April 06, 2024 End: April 06, 2024 Team Status: Inactive Member Role Status Dates Darwin Jones APRN Primary Care Pr ovider, Attending Provider Active Start: May 11, 2024 End: May 11, 2024 Team Status: Inactive Member Role Status Dates Darwin Jones APRN Primary Care Provider Active Start: May 24, 2024 End: May 24, [address] DO Attending Provider Active Start : May 24, 2024 End: May 24, 2024 Extrusion Die Coordinator Relationship Specialty Start Date End Date No Pcp, No Pcp [place]A [place] [id number] PCP - General Family Medicine 08/19/19 Extrusion Die Coordinator Relationship Specialty Start Date End Date No Pcp, [place] [address] PCP - General Family Medicine 08/19/19 Team [...] June 28, 2024 End: June 28, 2024 Extrusion Die Coordinator Relationship Specialty Start Date End Date No Pcp, [place] [address] PCP - General Family Medicine 08/19/19 Team [...] Provider Active Sta rt: August 25, 2024 Team Status: Active Member Role Status Dates Darwin Jones APRN Primary Care Provider Active Start: September 07, 2024 Marlys Stauffer Attending Provider Active Start : September 07, 2024 Team Status: Inactive Member Role Status Dates Darwin Jones APRN Primary Care Provider Active Start: September 14, 2024 End: September 14, 2024 Mary Ellen Bruce MD Attending Provider Active Sta rt: September 14, 2024 End: September 14, 2024 Goals (unrecognized section and content) Goals [...] this section No data available for this sectionGoals may be documented in an alternate section REASON FOR VISIT (unrecogniz ed section and content) Reason Comments Appointment LVM for patient that appt on 05/[address] George has been rescheduled to 07/08 at [facility] with Dr. Robertson. sending mail reminder [...] or prosecute any alcohol or drug abuse patient.[facility] the event this information is protected by the Federal Confidentiality of Alcohol and Drug Abuse Patient Records regulations: The Federal rules restrict any use of the information to criminally investigate or prosecute any alcohol or drug abuse patient.[facility] the event this information is protected by the Federal Confidentiality of Alcohol and Drug Abuse Patient Records regulations: The Federal rules restrict any use of the information to criminally investigate or prosecute any alcohol or drug abuse patient.[facility] the event this information is protected by the Federal Confidentiality of Alcohol and Drug Abuse Patient Records regulations: The Federal rules restrict any use of the information to criminally investigate or prosecute any alcohol or drug abuse patient.[facility] Hospital[facility] the event this information is protected by the Federal Confidentiality of Alcohol and Drug Abuse Patient Records regulations: The Federal rules restrict any use of the information to criminally investigate or prosecute any alcohol or drug abuse patient.[facility] Hospital[facility] the event this information is protected by the Federal Confidentiality of Alcohol and Drug Abuse Patient Records regulations: The Federal rules restrict any use of the information to criminally investigate or prosecute any alcohol or drug abuse patient.[facility] FOR RECORDS PERTAINING TO PATIENTS WHO [...] BE BASED ON THE PRIMARY CLINICAL RECORDS. [facility]. provides no warranty or guarantee of the accuracy or completeness of information in this document.
[2024-09-19 13:02] VITALS: BP 123/80; PULSE 105
== END 2024-09-19 13:57 | disposition home or self-care (01) ==
LOC: FBCO 01:31 → FBC 12:52
PROVIDERS: PCP Nurse Practitioner Family; Visit Provider Obstetrics & Gynecology
DX: O36.63X0 Maternal care for excessive fetal growth, third trimester, not applicable or unspecified (principal); Z3A.32 32 weeks gestation of pregnancy
CPT/HCPCS: 59025

== ENCOUNTER 2024-09-22 01:53 | Outpatient (OUT) | payer OTHER, SELFPAY ==
--- OUTSIDE RECORDS SUMMARY | 2024-09-22 01:59 | XMS_ITS | CCD ---
Author Organization [facility] Care Team Providers Care Process Improvement Specialist Name Role Phone Unknown, Unknown Unavailable Unavailable Unavailable Unavailable NO FAMILY, PHYSICIAN Primary Care Provider Unava ilable DO Addi Ortega Attending Provider Darwin Jones Unavailable DARWIN JONES Primary Care Physician Lilly Luke Unavailable SHIRLEY Jones Primary Care Provider SHIRLEY Jones Attending Provider [phone] DO Saad Valera Attending Provider Ofelia Hester Unavailable [facility] AMIE Darwin Unavailable Sima Ross Unavailable [facility] AMIE Darwin Unavailable SHIRLEY Jones Primary Care Provider SHIRLEY Hester Attending Provider SHIRLEY Jones Primary Care Provider SHIRLEY Hester Attending Provider [phone] Attending Provider [phone] REQUEST, DR NONE LISTED Primary Care Unavaila mari WAY ., DR YEUNG Attending Unavailable SEAMUS ., DR YEUNG Consulting Unavailable SEAMUS ., DR YEUNG Admitting Unavailable SHIRLEY Jones Primary Care Provider DO Addi Ortega Attending Provider [phone] [facility] Provider DO Jeovanny Quiros Emergency Provider [phone] [facility] Provider [phone] DO Addi Ortega Attending Provider [facility]ending [facility] Primary Care Provider Brain Way Attending Provider [facility] Primary Care Provider [phone] Attending Provider [phone] RUBY WHITTINGTON Attending Unavailable FRANCY GAN Attending Unavailable [facility] Primary Care Provider Brain Way Attending Provider [facility] Primary Care Provider DO Brain Way Attending Provider [place] Attending Unavailable Gabriel Curtis Attending Unavailable Tyrone Rock Attending Unavailable [facility]azos Primary Care Provider [phone] Attending Provider [facility] DO Addi PERES Attending Provider [facility] Primary Care Provider DO Brain Way Attending Provider [facility] Primary Care Provider DO Brain Way Attending Provider Unavailable Primary Care Provider Unavailabl e No Pcp, No Pcp Primary Care Provider Unavailabl e [facility] Darwin WATSON Primary Care Provider [facility] Addi SELLERS Attending Provider Brain Way DO Attending Provider SEAMUS, BRAIN R Referring Unavailable NO PCP, NO PCP Primary Care Unavailable RUPA REILLYA P Attending Unavailable NO PCP, NO PCP Primary Care Unavailable DOCISHA MONCADAOLINA P Referring Unavailable DARCY ENRIQUEZ Attending Unavailable SEAMUS, BRAIN R Referring Unavailable NO PCP, NO PCP Primary Care Unavailable [facility] Darwin WATSON Primary Care Provider Brain Way DO Attending Provider Mary Ellen Bruce MD Attending Provider [phone] DO Gabriel Curtis Attending Unavailable [place] Attending Unavailable Pham, Rogelio Robins Attending Unavailable Rogelio Nath Admitting Unavailable Rogelio Nath Attending Unavailable Rogelio Nath Admitting Unavailable Flash Franco Attending Unavailable Darwin Jones Primary Care Unavailable Seamus, Brain Attending Unavailable Seamus, Brain Admitting Unavailable Janis Mary Ellen Attending Unavailable [place], Darwin Anaya Primary Care Unavailable Janis, Mary Ellen Admitting Unavailable Janis, Mary Ellen Admitting Unavailable Mary Ellen Bruce Attending Unavailable EastDarwin brooks Primary Care Unavailable Seamus, Brain Attending Unavailable [place], Darwin Anaya Primary Care Unavailable Seamus, Brain Admitting Unavailable Seamus, Brain Attending Unavailable EastDarwin brooks Primary Care Unavailable Seamus, Brain Admitting Unavailable Seamus, Brain Attending Unavailable [facility] Primary Care Unavailable Seamus, Brain Admitting Unavailable [place], Darwin J Primary Care Unavailable Seamus, Brain Attending Unavailable Seamus, Brain Admitting Unavailable [place], Darwin J Primary Care Unavailable Semaus, Brain Attending Unavailable Seamus, Brain Admitting Unavailable [facility], Addi P Admitting Unavailable [facility], Addi P Attending Unavailable EastDarwin brooks J Primary Care Unavailable Easttodd, Darwin Anaya Primary Care Unavailable Seamus, Brain Attending Unavailable Seamus, Brain Admitting Unavailable [place], Darwin J Primary Care Unavailable Seamus, Brain Attending Unavailable Seamus, Brain Admitting Unavailable Darwin Jones Primary Care Unavailable Seamus, Brain Attending Unavailable Seamus, Brain Admitting Unavailable Darwin Jones Primary Care Unavailable Seamus, Brain Attending Unavailable Seamus, Brain Admitting Unavailable MYA FINCH Attending Unavailable SEAMUS, BRAIN Attending Unavailable SEAMUS, BRAIN Attending Unavailable SEAMUS, BRAIN Attending Unavailable SEAMUS, BRAIN Attending Unavailable SEAMUS, BRAIN Attending Unavailable SEAMUS, BRAIN Attending Unavailable Allergies Allergy Classification Reported Allergen(s) Allergy Type Date of Onset Reaction(s) Facility (6 sources) No Known Medication Allergies; Translations: [No Known Medication Allergies] Propensity to adverse reactions (disorder) [facility] Repository Medications Current Medications Medication Drug [...] tablet (2 sources) Opioid Agonist Start: 06-03-2021 Sheridan 325 mg-5 mg oral tablet 2 tab(s), [...] day(s), # 20 tab(s), Refills(s) 0, Pharmacy: [facility], 170.2, cm, 09/29/23 10:44:00 EST, Height/Length [...] day(s), # 28 cap(s), Refills(s) 0, Pharmacy: [facility], 170.2, cm, 03/22/23 20:14:00 EDT, Height/Length Dosing, 113.5, kg, 03/22/23 20:14:00 EDT, Weight Dosing Start Date: 03/22/23 Stop Date: 03/29/23 Status: Ordered Start: 07-03-2021 take 1 capsule by mo [facility] twice daily Keflex 500 mg Cap 500 mg = 1 cap(s), Oral, BID, # 10 cap(s), Refills(s) 0, Pharmacy: [facility], 170, cm, 06/27/21 10:56:00 EST, Height/Length Dosing, 104, kg, 06/23/21 8:09:00 EST, Weight Dosing Start Date: 07/03/21 Status: Ordered Start: 12-29-2020 End: 10-07-2023 take 1 capsule by mouth every eight hours Cephalexin 500 mg capsule Discontinued 500 MG PO Q8H 21 December 28, 2020 11:00pm October 07, 2023 [...] Start: 08-25-2024 take 1 capsule by mo [facility] once daily Levothyroxine 100 mcg capsule [...] 12:00am magnesium oxide 400 mg oral tablet (20 sources) Start : 05-24 End: 05-24 take [...] day(s), # 21 tab(s), Refills(s) 0, Pharmacy: [facility], 170.2, cm, 09/29/23 10:44:00 EST, Height/Length [...] omeprazole 20 mg delayed release oral capsule (15 sources) Proton Pump Inhibitor Start: 08-23-2024 End: 09-22-2024 take 1 capsule by mouth before mealtime omeprazole (PriLOSEC) [address] capsule Indications: Gastroesophageal Reflux Disease , Heartburn Take 1 capsule (20 mg) by mouth in the morning. Take before meals. Do not crush or chew.. 30 capsule 3 08/23/2024 09/22/2024 Active Start: 04-28-2023 take 1 tablet by delphine th once daily Omeprazole Magnesium 20 MG 1 tablet 30 minutes before morning meal Orally Once a day for 30 days Apr, Active take 1 capsule by mo [facility] once daily omeprazole (PRILOSEC) 20 mg [...] Date: 02/18/22 Stop Date: 02/21/22 Status: Ordered Ifg687-Zrleajf Fumarate-Fa () 28-800 mg-mcg Tablet (20 sources) Start: 12-29-2020 Dco364-Lcgeobz Fumarate-Fa () 28-800 mg-mcg Tablet Active TAB PO December 29, 2020 3:43pm Start: 12-29-2020 End: 10-07-2023 Pqj385-Jqnyvsr Fumarate-Fa ( ) 28-800 mg-mcg Tablet Discontinued TAB PO December 28, 2020 11:00pm October 07, 2023 6:06pm Start: 12-29-2020 End: 10-07-2023 Nrb127-Mtnthiu Fumarate-Fa ( ) 28-800 mg-mcg Tablet Discontinued TAB PO December 29, 2020 12:00am October 07, 2023 7:06pm Start: 12-29-2020 Iom403-Cphdwko Fumarate-Fa () 28-800 mg-mcg Tablet Active TAB PO December 28, 2020 11:00pm Start: 12-29-2020 Nkw012-Vlanqqq Fumarate-Fa () 28-800 mg-mcg Tablet Active TAB PO December 29, 2020 12:00am nolkkb27-sksw fum-folic ac-o m3 (One Daily ) (10 sources) Start: 08-25-2024 dojsmb18-pbds fum-folic ac-om3 (One Daily ) Active 1 PKG PO Daily August 25, 2024 12:10pm Start: 05-11-2024 End: 08-25-2024 eonuky96-irar fum-folic ac-o m3 (One Daily ) Discontinued PO May 10, 2024 11:00pm August 25, 2024 12:11pm Start: 05-11-2024 oqjmiv87-nopy fum-folic ac-om3 (One Daily ) Active PO May 10, 2024 11:00pm Start: 05-11-2024 landpw05-skec fum-folic ac-om3 (One Daily ) Active PO May 11, 2024 12:00am MV-Min-Fe Fum-FA-DHA ( 1 PO) (20 sources) MV-Min- Fe Fum-FA-DHA ( 1 PO) Take 1 each by mouth Daily Active qr857-lucv-pnyzz acid ( 19) 29 mg iron- 1 mg tablet,chewable (2 sources) kn270-hwby-sddkx acid ( 19) 29 mg iron- 1 [...] source) Vitamin B12 cyanocobalamin/f olic acid (VITAMIN U91-NNZTP ACID) 1,000-400 mcg lozg Take by mouth [...] Start: 05-26-2023 take 1 capsule by mo [facility] every twenty-four hours Phentermine HCl 37.5 MG 1 capsule Orally Once a day for 30 days May, Active Comment on above: Take 37.5 mg by mopr h. Vitamin (14 sources) Vitamin OTC Not-Taking [...] unspecified trimester] 2024 Episodic Other complications of (14 sources) Vomiting of , unspecified; Translations: [Unspecified [...] of ] 2024 Episodic Residual codes; unclassified (14 sources) Gestation period, 22 weeks; Translations: [22 [...] unspecified] Onset: 2 Resolved: 2 Chronic Unclassified (12 sources) OB Reminders Onset: 4 06-28-2024 Unclassified [...] US OB BPP W NON-STRESS on 09-15-2024 [place] [address] Ultrasound Report Signed Patient: TAWNYA HERRING MR#: [id number] : 1995 Acct:[id number] Age/Sex: 29 / F ADM Date: 09/14/24 Loc: [facility] 254-[address]: Brain Way D.O. Ordering Physician: Brain Way D.O. Date of Service: 09/14/24 Procedure(s): US OB BPP w non-stress Accession Number(s): [id number] cc: Darwin Jones TALENT ACQUISITION MANAGER; Brain Way D.O. The [address] [address] Patient Name: TAWNYA HERRING MRN: [id number] date: 1995 Sex: F Assigned Patient Location: US Current Patient Location: Accession/Order Number: [id number] Exam Date: 09/14/2024 19:57 Report Date: 09/15/2024 [...] M.D. Signed By: 09/15/24616 DD/ 4 TD/TT: Bar Staff: [facility] Radiology, Radiologi MD diane - 09/15/2024 [place] [address] Ultrasound Report Signed Patient: TAWNYA HERRING MR#: [id number] : 1995 Acct:[id number] Age/Sex: 29 / F ADM Date: 09/14/24 Loc: [facility] 254-[address]: Brain Way D.O. Ordering Physician: Brain Way D.O. Date of Service: 09/14/24 Procedure(s): US OB BPP w non-stress Accession Number(s): [id number] cc: Darwin Jones TALENT ACQUISITION MANAGER; Brain Way D.O. The [place] [address] Patient Name: TAWNYA HERRING MRN: [facility]:[id number] date: 1995 Sex: F Assigned Patient Location: US Current Patient Location: Accession/Order Number: [id number] Exam Date: 09/14/2024 19:57 Report Date: 09/15/2024 [...] M.D. Signed By: 09/15/24616 DD/ 4 TD/TT: Bar Staff: [facility] Radiology Study observation (narrative) [facility] OB BPP W NON-STRESS Ordered By: Radiologist Radiology on 09-15-2024 [facility] Work Phone: [facility] echo transthoracicon [facility] echo transthoracic [facility] [place] [address] Echocardiogram Signed Patient: Tawnya Shay MR#: [id number] 29 : 1995 Acct:[id number] Age/Sex: 29 / F ADM Date: 09/14/24 Loc: Room: Type: [facility] Attending Dr: Mary Ellen Bruce MD Ordering Provider: Mary Ellen Bruce MD Date of Service: 09/14/24 [facility] echo transthoracic: I51.7 - Cardiomegaly Copies to: [...] Mary Ellen Bruce MD 09/14/24 1116 Normal [facility] OB GROWTHon 09-11-2024 [place] [id number] Ultrasound Report Signed Patient: TAWNYA HERRING MR#: [id number] : 1995 Acct:[id number] Age/Sex: 29 / F ADM Date: 09/11/24 Loc: US Attending Dr: Mya Finch Ordering Physician: Mya Finch Date of Service: 09/11/24 Procedure(s): US OB growth Accession Number(s): [id number] cc: Mya Finch; Darwin Jones NP [place] [id number] Patient Name: TAWNYA HERRING MRN: [id number] date: 1995 Sex: F Assigned Patient Location: Current Patient Location: US Accession/Order Number: [id number] Exam Date: 09/11/2024 10:00 Report Date: 09/11/2024 [...] Signed By: 09/11/24 1111 DD/ 1108 TD/TT: Bar Staff: [facility] Radiology, Radiologi MD diane - 09/11/2024 [place] [address] Ultrasound Report Signed Patient: TAWNYA HERRING MR#: [id number] : 1995 Acct:[id number] Age/Sex: 29 / F ADM Date: 09/11/24 Loc: US Attending Dr: Mya Finch Ordering Physician: Mya Finch Date of Service: 09/11/24 Procedure(s): US OB growth Accession Number(s): [id number] cc: Mya Finch; Darwin Jones NP The [place] [id number] Patient Name: TAWNYA HERRING MRN: [facility]:[id number] date: 1995 Sex: F Assigned Patient Location: US Current Patient Location: US Accession/Order Number: [id number] Exam Date: 09/11/2024 10:00 Report Date: 09/11/2024 [...] Signed By: 09/11/24 1111 DD/ 1108 TD/TT: Bar Staff: [facility] Radiology Study observation (narrative) [facility] OB GROWTHOrdered By: Halima ologleighton Radiology on 09-11-2024 [facility] Work Phone: Y Urineon 09-07-2024 Bacteria identified Cx Nom (U) [...] Locations R1: This test [facility] performed at: [facility], [address] [place] [address], [address]- , [place], [facility] Comment on above: Performed By: #### 2 [id number] #### [facility] [address] [place] [address] Urinalysis macro (dipstick) panel (U)on 09-07-2024 Bilirubin, UA Negative Negative - 4(70) +++ mg/dL [facility] Blood, UA Negative Negative - 50 Dain/mcL [facility] Clarity, UA Clear [facility] Color, UA Yellow [facility] Glucose, UA Negative Negative - 1999(110) ++++ mg/dL [facility] Interpretation and review of laboratory results Normal [facility] Ketones, UA Negative Negative - 160(16) ++++ mg/dL [facility] Leukocytes, UA Negative Negative - 500+++ Chaparrita/mcL [facility] Nitrite, UA Negative Negative - Positive [facility] pH, UA 8 5 - 9 [facility] Protein, UA Negative Negative - 2000(20) ++++ mg/dL [facility] Spec Grav, UA 1.015 1 - 1.03 [facility] Urobilinogen, UA 1.0 0.2 - 12 mg/dL [facility] ED Clinical Summaryon 2024 ED Clinical Summary ED Clinical Summary [place] [id number] ED Clinical Summary Person Information Name: TAWNYA HERRING [facility] Age: 29 Years : 1995 Sex: Female Language: Mauritanian PCP: DARWIN JONES CNP Marital Status: Single Phone: [phone] Visit Id: Visit Reason: Headache; HEADACHE, FALL [...] 09/06/2024 16:26:55 09/06/2024 16:26:55 09/06/2024 16:26:55 ADDRESS: [address] [place] [phone] PHYS DOC NOTES: MEDICAL INFORMATION: Prescriptions Given: [...] day. PATIENT EDUCATION INFORMATION: Instructions: Concussion, Adult, Myfi-ek-Xtuh Follow up: With: Address: When: DARWINKenan JONES[address] [place] [address] [phone] Business (1) In 3 days 09/09/2024 Comments: Call to schedule a follow-up appointment with your primary care provider. Use Zofran as needed for nausea/vomiting. Return to the ED with any new or worsening symptoms. DIAGNOSIS: JEFFERSON (headache) Normal [facility] ED Note-Physicianon 09-06-19 ED Note-Physician ED [...] headache. She denies the use of any lbre-bkg-pkgbkex medications for this. Patient denies any neck [...] [] Head CT not ordered by emergency managed care specialist [] Head CT ordered for reasons other than trauma [] Patient is 18 or older, presenting with minor blunt head trauma. Head CT (including cosigned orders) was ordered by an emergency managed care specialist for trauma because (select one or more):[SATISFIES MIPS PERFORMANCE]Reasons: [] Patient is 65 or older [] Patient GCS < 15 [] Patient has focal neurologic deficit [] Patient has severe headache [] Patient is vomiting [] Severe/dangerous mechanism of injury was identified(select one or more): []MVA with: patient ejection, of another passenger, rollover, speed > 40mph, airbag deployment, bus driver supervisor or passenger on ATV or motorcycle [] [...] cosigned orders) was ordered by an emergency managed care specialist for trauma, no indication specified.[DOES NOT SATISFY MIPS PERFORMANCE] Medical Decision Making Patient is a 29-year-old female with a history of anxiety who presents to the ED 30 weeks with complaints of a headache following a syncope episode from a seated position yesterday. Patient is hemodynamically st (more content not included)... Normal [facility] Comment on above: Result Comment: Elec tronically Signed By: Lashon Tee PA-C\.br\Date and Time Signed: 09/06/24 16:20 EST\.br\Electronically Co-Signed By: Lashon Tee PA-C\.br\Date and Time Co-Signed: 09/06/24 16:21 EST\.br\Electronically Co-Signed By: Flash Franco DO\.br\Date and Time Co-Signed: 09/06/24 19:47 EST ED Patient Summaryon 025 ED Patient Summary ED Patient Summary [place] [address] Patient Discharge Instructions Person Information Name: TAWNYA HERRING Age: 29 Years Arrival Date: 09/06/2024 13:57:18 Discharge Diagnosis: JEFFERSON (headache) Primary Care Physician: DARWIN JONES CNP Provider Information Primary Provider: Flash Franco DO Advanced Vice President Industrial Relations:Lashon Tee PA-C The exam and treatment you received in the Emergency Department were for an urgent problem and are not intended as complete care. It is important that you follow up with a doctor, nurse practitioner, or physician???s assistant to the director for ongoing care. If your symptoms become worse or you do not improve as expected and you are unable to reach your usual health care provider, you should return to the Emergency Department. We are available 24 hours a day. TAWNYA HERRING has been given the following list of patient education materials, prescriptions and follow-up instructions: Follow-up Instructions: With: Address: When: DARWIN JONES [facility] [place] [address] [phone] [place] (1) In 3 days 09/09/2024 Comments: Call to schedule a follow-up appointment with your primary care provider. Use Zofran as needed for nausea/vomiting. Return to the ED with any new or worsening symptoms. In the event that this physician does not participate in your insurance network, please consult with your insurance company to find a nearby participating provider. Patient Education Materials: Concussion, Adult, Qipz-fs-Wjvs A MESSAGE TO ALL PATIENTS REGARDING OPIOIDS PRESCRIPTION OPIOIDS: WHAT YOU NEED TO KNOW Prescription opioids can be used to help relieve jyxiyoeh-dj-tstutd pain and are often prescribed following a [...] (www.fda.gov/Drugs/Resourc esForYou). (more content not included)... Normal [facility] BLOOD BANKOrdered By: Estefany Morillo on 09-05-2024 Fibronectin. Ql (Vag fld) Negative 1 (09/05/24 5:47 AM) Normal [facility] Man Sero Comment on above: Interpretive Data: [...] [Moles/Vol] 16 mmol/L Normal 6-16 [facility] Comment on above: Performed By: #### 2 [id number] #### [facility] [address] [place] [address] Calcium [Mass/Vol] 8.5 mg/dL Low 8.9-11.1 [facility] Comment on above: Performed By: #### 2 [id number] #### [facility] [address] [place] [address] Chloride [Moles/Vol] 108 mmol/L Normal 101-111 [facility] Comment on above: Performed By: #### 2 [id number] #### [facility] [address] [place] [address] CO2 [Moles/Vol] 17 mmol/L Low 21-31 [facility] Comment on above: Performed By: #### 2 [id number] #### [facility] [address] [place] [address] Creatinine [Mass/Vol] 0.4 mg/dL Low 0.5-1.3 [facility] Comment on above: Performed By: #### 2 [id number] #### [facility] [address] [place] [address] Glucose [Mass/Vol] 103 mg/dL Normal 55-199 [facility] Comment on above: Performed By: #### 2 [id number] #### [facility] [address] [place] [address] Potassium [Moles/Vol] 3.6 mmol/L Normal 3.5-5.3 [facility] Comment on above: Performed By: #### 2 [id number] #### [facility] [address] [place] [address] Sodium [Moles/Vol] 137 mmol/L Normal 135-145 [facility] Comment on above: Performed By: #### 2 [id number] #### [facility] [address] [place] [address] Urea nitrogen [Mass/Vol] 9 mg/dL Normal 5-21 [facility] Comment on above: Performed By: #### 2 [id number] #### [facility] [address] [place] [address] Urea nitrogen/Creatinine [Mass ratio] 22 No Units High 10-20 [facility] Comment on above: Performed By: #### 2 [id number] #### [facility] [address] [place] [address] CBC w/ Auto Diffon 5 Basophils/100 WBC (Bld) 0.4 % Normal 0.0-2.0 [facility] Comment on above: Performed By: #### 2 [id number] #### [facility] [address] [place] [address] Basophils/Leukocytes Auto (Bld) [Pure # fraction] 0.1 E9/L Normal 0.0-0.2 [facility] Comment on above: Performed By: #### 2 [id number] #### [facility] [address] [place] [address] Eosinophils (Bld) [#/Vol] 0.0 E9/L Normal 0.0-0.5 [facility] Comment on above: Performed By: #### 2 [id number] #### [facility] [address] [place] [address] Eosinophils/100 WBC (Bld) 0.3 % Normal 0.0-8.0 [facility] Comment on above: Performed By: #### 2 [id number] #### [facility] [address] [place] [address] Erythrocyte distribution width (RBC) [Ratio] 12.7 % Normal 10.9-14.2 [facility] Comment on above: Performed By: #### 2 [id number] #### [facility] [address] [place] [address] Hematocrit (Bld) [Volume fraction] 37.4 % Normal 34.0-46.0 [facility] Comment on above: Performed By: #### 2 [id number] #### [facility] [address] [place] [address] Hemoglobin (Bld) [Mass/Vol] 13.2 g/dL Normal 12.0-16.0 [facility] Comment on above: Performed By: #### 2 [id number] #### [facility] [address] [place] [address] Lymphocytes (Bld) [#/Vol] 1.1 E9/L Normal 1.0-4.0 [facility] Comment on above: Performed By: #### 2 [id number] #### [facility] [address] [place] [address] Lymphocytes/100 WBC (Bld) 7.0 % Low 14.0-50.0 [facility] Comment on above: Performed By: #### 2 [id number] #### [facility] [address] [place] [address] MCH (RBC) [Entitic mass] 33.0 pg Normal 27.0-34.0 [facility] Comment on above: Performed By: #### 2 [id number] #### [facility] [address] [place] [address] MCHC (RBC) [Mass/Vol] 35.4 g/dL Normal 31.4-36.0 [facility] Comment on above: Performed By: #### 2 [id number] #### [facility] [address] [place] [address] MCV (RBC) [Entitic vol] 93.3 fL Normal 80.0-100.0 [facility] Comment on above: Performed By: #### 2 [id number] #### [facility] [address] [place] [address] Monocytes (Bld) [#/Vol] 0.7 E9/L Normal 0.2-1.0 [facility] [facility] Comment on above: Performed By: #### 2 [id number] #### [facility] [address] [place] [address] Neutrophils (Bld) [#/Vol] 13.7 E9/L High 2.0-7.5 [facility] Comment on above: Performed By: #### 2 [id number] #### [facility] [address] [place] [address] Neutrophils/100 WBC (Bld) 87.6 % High 36.0-75.0 [facility] Comment on above: Performed By: #### 2 [id number] #### [facility] [address] [place] [address] Platelet 324.0 E9/L Normal 150.0-500. 0 [facility] Comment on above: Performed By: #### 2 [id number] #### [facility] [address] [place] [address] Platelet mean volume (Bld) [Entitic vol] 8.3 fL Normal 6.4-10.8 [facility] Comment on above: Performed By: #### 2 [id number] #### [facility] [address] [place] [address] RBC (Bld) [#/Vol] 4.0 E12/L Low 4.3-5.9 [facility] Comment on above: Performed By: #### 2 [id number] #### [facility] [address] [place] [address] WBC corrected for nucl RBC Auto (Bld) [#/Vol] 15.6 E9/L High 4.0-11.0 [facility] Comment on above: Performed By: #### 2 [id number] #### [facility] [address] [place] [address] CHEMISTRYOrdered By: SYSTEM SYSTEM on 09-05-2024 Albumin [...] Sensitivity Troponin I Instructions For Use, Nathen [place], March 2018) Urea nitrogen [Mass/Vol] 9 mg/dL Normal 5 - 21 mg/dL Remisol Chem Urea nitrogen/Creatinine [Mass ratio] 22 mg/mg High 10 - 20 Remisol Chem ED Clinical Summaryon 2024 ED Clinical Summary ED Clinical Summary [place] [id number] ED Clinical Summary Person Information Name: TAWNYA HERRING [facility] Age: 29 Years : 1995 Sex: Female Language: Mauritanian PCP: DARWIN JONES CNP Marital Status: Single Phone: [phone] Visit Id: Visit Reason: Abdominal pain - ; Vomiting - ; Syncope/Near syncope; PASSED OUT HIT HEAD,NAUSEA DIARRHEA VOMITING 30 WKS PREG Speciality: Acuity: 2 Enc Type: Emergency Med Service: Emergency Arrival: 09/05/2024 03:02:46 Discharge: LOS: 000 01:33 Checkin: 09/05/2024 03:02:46 Checkout: 09/05/2024 04:35:45 Dispo Type: Admitted as IP to this [facility] EVENTS: Event Name Event Status Request Date/Time [...] 09/05/2024 04:35:45 09/05/2024 04:35:45 09/05/2024 04:35:45 ADDRESS: [address] [place] [id number] [facility] DOC NOTES: MEDICAL INFORMATION: Prescriptions Given: Medications to Continue with No Changes Other Medications citalopram (CeleXA 20 mg Tab) 1 Tablets By Mouth every day. PATIENT EDUCATION INFORMATION: Instructions: Syncope, Adult, Gytz-hk-Aiwc; Nausea and Vomiting, Adult, Higz-yc-Mawr; Diarrhea, Adult, Ttud-io-Vfym; Dehydration, Adult, Yqyb-hq-Geke Follow up: With: Address: When: DARWIN JONES [address] [facility] [place] [address] [place] [phone] Business (1) In 3 days 09/08/2024 Comments: Please follow-up with Dr. Way for further evaluation management. Please return to the ED for any new or worsening symptoms. DIAGNOSIS: Dehydration; Diarrhea, unspecified; Nausea, vomiting, and diarrhea; Syncope Normal [facility] ED Note-Nursingon 09-05-2024 ED Note-Nursing ED Note-Nursing OB at bedside Normal [facility] ED Note-Physicianon 09-05-19 ED Note-Physician ED [...] and Complexity of Problems Differential Diagnosis: [] [facility] Data External documents reviewed: [] [...] Dayna 50 mL [F] 50 mL + [id number] [F] 25 mg, IV Piggyback Disposition Plan [...] Use, 03/12/2020 (more content not included)... Normal [facility] Comment on above: Result Comment: Elec tronically Signed By: Gabriel Curtis DO\Date and Time Signed: 09/05/24 04:22 EST ED Patient Summaryon 025 ED Patient Summary ED Patient Summary [address] [address] Patient Discharge Instructions Person Information Name: TAWNYA HERRING Age: 29 Years Arrival Date: 09/05/2024 03:02:46 Discharge Diagnosis: Dehydration; Diarrhea, unspecified; Nausea, vomiting, and diarrhea; Syncope Primary Care Physician: DARWIN JONES CNP Provider Information Primary Provider: Gabriel Curtis DO Advanced Vice President Industrial Relations:None The exam and treatment you received in the Emergency Department were for an urgent problem and are not intended as complete care. It is important that you follow up with a doctor, nurse practitioner, or physician???s assistant to the director for ongoing care. If your symptoms become worse or you do not improve as expected and you are unable to reach your usual health care provider, you should return to the Emergency Department. We are available 24 hours a day. TAWNYA HERRING has been given the following list of patient education materials, prescriptions and follow-up instructions: Follow-up Instructions: With: Address: When: DARWIN JONES [facility] [place] [address] [phone] Business (1) In 3 days 09/08/2024 Comments: Please follow-up with Dr. Way for further evaluation management. Please return to the ED for any new or worsening symptoms. In the event that this physician does not participate in your insurance network, please consult with your insurance company to find a nearby participating provider. Patient Education Materials: Syncope, Adult, Oids-sc-Soxh; Nausea and Vomiting, Adult, Jtga-hq-Czzw; Diarrhea, Adult, Orha-wp-Umgy; Dehydration, Adult, Vloy-fq-Nktq A MESSAGE TO ALL PATIENTS REGARDING OPIOIDS PRESCRIPTION OPIOIDS: WHAT YOU NEED TO KNOW Prescription opioids can be used to help relieve nojcbhvj-br-ttpruy pain and are often prescribed following a [...] down t (more content not included)... Normal [facility] Extra Blueon 09-05-2024 Tube Collected Plasma Yes Invalid Interpretation Code [facility] Comment on above: Performed By: #### 1 [id number] #### [facility] [address] [place] [address] FFNon 09-05-2024 Fibronectin. Ql (Vag fld) Negative Normal [facility] Comment on above: Result Comment: In [...] the antibody-antigen reaction. Performed By: #### 1 [id number] #### [facility] [address] [place] [address] HEMATOLOGYOrdered By: SYSTEM SYSTEM on 09-05-2024 Basophils/100 [...] 09-05-2024 Albumin [Mass/Vol] 3.8 g/dL Normal 3.3-5.0 [facility] Comment on above: Performed By: #### 2 [id number] #### [facility] [address] [place] [address] Albumin/Globulin (S) [Mass conc ratio] 1.5 Normal 1.1-2.2 [facility] Comment on above: Performed By: #### 2 [id number] #### [facility] [address] [place] [address] ALP [Catalytic activity/Vol] 80 Int._Unit/L Normal 21-98 [facility] Comment on above: Performed By: #### 2 [id number] #### [facility] [address] [place] [address] ALT No additional P-5'-P [Catalytic activity/Vol] 20 Int._Unit/L Normal 6-46 [facility] Comment on above: Performed By: #### 2 [id number] #### [facility] [address] [place] [address] AST [Catalytic activity/Vol] 15 Int._Unit/L Normal 5-43 [facility] Comment on above: Performed By: #### 2 [id number] #### [facility] [address] [place] [address] Bilirubin [Mass/Vol] 0.6 mg/dL Normal 0.0-1.1 [facility] Comment on above: Performed By: #### 2 [id number] #### [facility] [address] [place] [address] Bilirubin.direct [Mass/Vol] 0.1 mg/dL Normal 0.0-0.4 [facility] Comment on above: Performed By: #### 2 [id number] #### [facility] [address] [place] [address] Bilirubin.indirect [Mass or moles/Vol] 0.5 mg/dL Normal 0.1-0.9 [facility] Comment on above: Performed By: #### 2 [id number] #### [facility] [address] [place] [address] Globulin (S) [Mass/Vol] 2.6 g/dL Normal 1.4-4.0 [facility] Comment on above: Performed By: #### 2 [id number] #### [facility] [address] [place] [address] Protein [Mass/Vol] 6.4 g/dL Normal 6.0-7.8 [facility] Comment on above: Performed By: #### 2 [id number] #### [facility] [address] [place] [address] Influenza A&B Agon 5 Influenzae A Ag Negative Normal Negative [facility] Comment on above: Performed By: #### 1 [id number] #### [facility] [address] [place] [address] Influenzae B Ag Negative Normal Negative [facility] Comment on above: Result Comment: Test sensitivity and specificity vary for age group, specimen type, antigen types, and prevalence of disease. Test results must be evaluated in conjunction with other clinical data available to the physician. Individuals who received nasally administered Influenza A vaccine may have positive test results up to 3 days after vaccination. Performed By: #### 1 [id number] #### [facility] [address] [place] [address] Inpatient Clinical Summaryon 09-05-2024 Inpatient Clinical Summary Inpatient Clinical Summary [address] [address] Clinical Summary Person Information Name: TAWNYA HERRING [facility] Age: 29 Years : 1995 Sex: Female PCP: DARWIN JONES CNP Marital Status: Single Phone: [phone] Race: White Ethnicity: Non- or Language: Mauritanian Visit Id: Visit Reason: Abdominal pain - ; Vomiting - ; Syncope/Near syncope; PASSED OUT HIT HEAD,NAUSEA DIARRHEA VOMITING 30 WKS PREG Speciality: Acuity: Obs Enc Type: Observation Med Service: Obstetrics Arrival: 09/05/2024 03:02:46 Discharge: 09/05/2024 15:50:00 Dispo Type: Home ([facility]) Address: [address] [place] [phone] Provider Notes: Diagnosis: Dehydration; Diarrhea, unspecified; Nausea, [...] range between ( 80.0 and 100.0 ) [place] Auto: 4.7 % -- Normal range between ( 4.0 and 14.0 ) MPV: 8.3 fL -- Normal range between ( 6.4 and 10.8 ) Neutro Auto: 87.6 % -- Normal range between ( 36.0 and 75.0 ) Platelet: 324.0 E9/L -- Normal range between ( 150.0 and 500.0 ) WBC: 15.6 E9/L -- Normal range between ( 4.0 and 11.0 ) [place] Absolute: 0.7 E9/L -- Normal range between [...] 38.19 kg/m2 (more content not included)... Normal [facility] Inpatient Patient Summaryon 09-05-2024 Inpatient Patient Summary Inpatient Patient Summary [address] [address] Patient Discharge Instructions PERSON INFORMATION Name: TAWNYA HERRING Date of : 1995 Current Date: 09/05/2024 16:15:55 PHYSICIANS Admitting Physician: Rogelio Nath MD Primary Care Physician: DARWIN JONES CNP PCP Phone Number: [phone] Comment: Discharge Diagnosis: Dehydration; Diarrhea, unspecified; Nausea, [...] Follow up: With: Address: When: [address] [facility], [address] [facility] [place] [address] Business (1) In 2 days 09/07/2024 Comments: Call 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 Medicines ??? Take kaxd-mlf-bmbatdi and prescription medicines only as told by [...] ? Flexing (more content not included)... Normal [facility] Lipase Levelon 09-05-2024 Lipase [Catalytic activity/Vol] 18 U/L Normal 13-58 [facility] Comment on above: Performed By: #### 2 [id number] #### [facility] [address] [place] [address] MICRO OTHER TESTSOrdered By: Barrington Maxwell on 09-05-2024 Influenzae A Ag Negative (09/05/24 3:34 AM) Normal Negative [facility] Influenzae B Ag Negative 3 (09/05/24 3:34 AM) Normal Negative [facility] Comment on above: Interpretive Data: [...] Troponin HS 2.70 pg/mL Low 10.10-27.1 0 [facility] Comment on above: Result Comment: The 95% CI (Confidence Interval) PPV (Positive Predictive Value) for myocardial infarction in females is 38 pg/mL, in males 51 pg/mL. The results should be used in conjunction with clinical conditions of myocardial infarction. (Access High Sensitivity Troponin I Instructions For Use, Nathen [employer], March 2018) Performed By: #### 1 [id number] #### [facility] [address] [place] [address] UA with Cult Rflxon 09-05-19 25 Bacteria Auto Ql (U) Trace Normal Trace [facility] Comment on above: Performed By: #### 4 [id number] #### [facility] [address] [place] [address] Bilirubin Ql (U) 1+ mg/dL Abnormal Negative [facility] Comment on above: Performed By: #### 4 [id number] #### [facility] [address] [place] [address] Clarity (U) Turbid Abnormal Clear [facility] Comment on above: Performed By: #### 4 [id number] #### [facility] [address] [place] [address] Color (U) Dark-Yellow Abnormal Yellow [facility] Comment on above: Result Comment: Micr oscopic readings are only performed on those samples that meet specific criteria set forth by [facility]. Performed By: #### 4 [id number] #### [facility] [address] [place] [address] Epithelial cells.squamous Auto (Urine sed) [#/Area] 5-8 Invalid Interpretation Code [facility] Comment on above: Performed By: #### 4 [id number] #### [facility] [address] [place] [address] Glucose Ql (U) Trace Abnormal Negative [facility] Comment on above: Performed By: #### 4 [id number] #### [facility] [address] [place] [address] Hemoglobin Auto test strip (U) [Mass/Vol] Negative Normal Negative [facility] Comment on above: Performed By: #### 4 [id number] #### [facility] [address] [place] [address] Ketones Auto test strip Ql (U) 1+ mg/dL Abnormal Negative [facility] Comment on above: Performed By: #### 4 [id number] #### [facility] [address] [place] [address] Leukocyte esterase Auto test strip Ql (U) 25 Chaparrita/uL Normal Negative [facility] Comment on above: Performed By: #### 4 [id number] #### [facility] [address] [place] [address] Mucus Auto Ql (U) 4+ [id number] Abnormal Negative [facility] Comment on above: Performed By: #### 4 [id number] #### [facility] [address] [place] [address] Nitrite Auto test strip Ql (U) 1+ mg/dL Abnormal Negative [facility] Comment on above: Performed By: #### 4 [id number] #### [facility] [address] [place] [address] pH (U) 5.5 [pH] Invalid Interpretation Code 5.0-9.0 [facility] Comment on above: Performed By: #### 4 [id number] #### [facility] [address] [place] [address] Protein Ql (U) 1+ mg/dL Abnormal Negative [facility] Comment on above: Performed By: #### 4 [id number] #### [facility] [address] [place], [place] [id number] RBC Ql (U) 0-3 Normal 0-3 [facility] Comment on above: Performed By: #### 4 [id number] #### [facility] [address] [place], [place] [id number] Specific gravity (U) [Rel density] 1.029 Invalid Interpretation Code 1.005-1.03 0 [facility] Comment on above: Performed By: #### 4 [id number] #### [facility] [address] [place], [place] [id number] Urobilinogen (U) [Mass/Vol] 2 mg/dL Abnormal Negative [facility] Comment on above: Performed By: #### 4 [id number] #### [facility] [address] [place], [place] [id number] WBC Auto (Urine sed) [#/Area] 0-5 Normal 0-5 [facility] Comment on above: Performed By: #### 4 [id number] #### [facility] [address] [place], [place] [id number] Type of Urine collection method Clean Catch Normal [facility] Comment on above: Performed By: #### 4 [id number] #### [facility] [address] [place] [address] URINALYSISOrdered By: SYSTEM SYSTEM on 09-05-2024 Bacteria Auto Ql (U) Trace /HPF Normal Trace/HPF FT UA Auto SS Bilirubin Ql (U) 1+ mg/dL Invalid Interpretation Code Negativemg /dL [facility] UA Auto SS Clarity (U) Turbid *ABN* (09/05/24 5:25 AM) Invalid Interpretation Code Clear [facility] UA Auto SS Color (U) Dark-Yellow 2 *ABN* (09/05/24 5:25 AM) Invalid Interpretation Code Yellow [facility] UA Auto SS Comment on above: Interpretive Data: M icroscopic readings are only performed on those samples that meet specific criteria set forth by [facility]. Epithelial cells.squamous Auto (Urine sed) [...] [facility] UA Auto SS RBC Ql (U) 0-3 graded/HPF Normal 0-3graded/ HPF [facility] UA Auto SS Specific gravity (U) [Rel density] 1.029 *NA* (09/05/24 5:25 AM) Invalid Interpretation Code 1.005 - 1.030 [facility] UA Auto SS Urobilinogen (U) [Mass/Vol] 2 mg/dL Invalid Interpretation Code Negativemg /dL [facility] UA Auto SS WBC Auto (Urine sed) [#/Area] 0-5 graded/HPF Normal 0-5graded/ HPF [facility] UA Auto SS URINALYSISOrdered By: Rica Islas on 09-05-2024 UA Spec Desc Clean Catch (09/05/24 5:25 AM) Normal [facility] UA Auto SS eGFRon 09-05-2024 eGFR 138 mL/min/1.73 m2 Normal >=59 [facility] Comment on above: Performed By: #### 1 [id number] #### [facility] [address] [place] [address] ALL CBC WITH AUTO DIFFon BASOPHILS ABSOLUTE AUTO 0 [facility] Basophils/100 WBC (Bld) 0.2 % 0.2 - 2.0 % [facility] Eosinophils/100 WBC (Bld) 0.8 % Low 0.9 - 7.0 % [facility] Erythrocyte distribution width (RBC) [Ratio] 12.1 % 11.0 - 15.0 % [facility] Hematocrit (Bld) [Volume fraction] 33.9 % Low 36.0 - 48.0 % [facility] Hemoglobin (Bld) [Mass/Vol] 11.6 g/dL Low 12.0 - 16.0 g/dL [facility] IMMATURE GRANULOCYTES ABS AUTO 0.03 [facility] Immature granulocytes/100 WBC (Bld) 0.3 % 0.0 - 0.5 % [facility] Interpretation and review of laboratory results Abnormal [facility] LYMPHOCYTES ABSOLUTE AUTO 1.8 [facility] Lymphocytes/100 WBC (Bld) 19.8 % Low 20.5 - 60.0 % [facility] MCH (RBC) [Entitic mass] 32.9 pg 26.7 - 34.0 pg [facility] MCHC (RBC) [Mass/Vol] 34.2 g/dL 29.9 - 35.2 g/dL [facility] MCV (RBC) [Entitic vol] 96 fL 81.0 - 99.0 fL [facility] MONOCYTES ABSOLUTE AUTO 0.5 [facility] Monocytes/100 WBC (Bld) 5.4 % 1.7 - 12.0 % [facility] NEUTROPHILS ABSOLUTE AUTO 6.6 High [facility] Neutrophils/100 WBC (Bld) 73.5 % 43.0 - 75.0 % [facility] Platelet mean volume (Bld) [Entitic vol] 10.2 fL 9.5 - 13.5 fL [facility] TBH EO # 0.1 [facility] TBH PLT [address] [facility] RBC 3.53 Low [facility] TB WBC 9 [facility] Basophils Auto (Bld) [#/Vol] on 08-25-2024 Basophils (Bld) [#/Vol] Automated basophil count 0.0-0.1 [facility] Basophils/100 WBC Auto (Bld) on 08-25-2024 Basophils/100 WBC (Bld) Automated basophil % 0.2-2.0 [facility] Eosinophils/100 WBC Auto (Bl d)on 08-25-2024 Eosinophils/100 WBC (Bld) Automated eosinophil % Low 0.9-7.0 [facility] Erythrocyte distribution wid th Auto (RBC) [Ratio]on 08-25-2024 Erythrocyte distribution width (RBC) [Ratio] Erythrocyte distribution width [Ratio] by Automated count 11.0-15.0 [facility] FPG ECG *CARDIOLOGY ONLY*on 08-25-2024 FPG ECG *CARDIOLOGY ONLY* [facility] [place] [address] Electrocardiograph Report Signed Patient: Tawnya Herring MR#: [id number] 29 : 1995 Acct:[id number] Age/Sex: 29 / F ADM Date: 08/25/24 Loc: [facility] Room: Type: [facility] Attending Dr: Mary Ellen Bruce MD [...] Normal ECG Confirmed by Mary Ellen Bruce ([id number]) on 08/25/2024 1:42:57 PM Referred By: Electronically Signed By: Mary Ellen Bruce Transcribed By: MUS Signed By Mary Ellen Bruce MD 5 1342 Normal [facility] Hematocrit Auto (Bld) [Volum e fraction]on 08-25-2024 Hematocrit (Bld) [Volume fraction] Hematocrit [Volume Fraction] of Blood by Automated count Low 36.0-48.0 [facility] Hemoglobin [Mass/volume] in Bloodon 08-25-2024 Hemoglobin (Bld) [Mass/Vol] Hemoglobin [Mass/volume] in Blood Low 12.0-16.0 [facility] Laboratory - Chemistry and C hemistry - challengeon 08-25-2024 Glucose [Mass/Vol] 131 mg/dL High <130 [facility] - Hematology and Cell countson 08-25-2024 Immature granulocytes/100 WBC (Bld) 0.3 % 0.0-0.5 [facility] Leukocytes [#/volume] correc hamilton for nucleated erythrocytes in Blood by Automated counon 08-25-2024 WBC corrected for nucl RBC Auto (Bld) [#/Vol] Leukocytes [#/volume] corrected for nucleated erythrocytes in Blood by Automated coun 4.0-11.0 [facility] Lymphocytes Auto (Bld) [#/Vo l]on 08-25-2024 Lymphocytes (Bld) [#/Vol] Lymphocytes [#/volume] in Blood by Automated count 1.2-3.8 [facility] Lymphocytes/100 WBC Auto (Bl d)on 08-25-2024 Lymphocytes/100 WBC (Bld) Lymphocytes/100 leukocytes in Blood by Automated count Low 20.5-60.0 [facility] MCH Auto (RBC) [Entitic mass ]on 08-25-2024 MCH (RBC) [Entitic mass] MCH [Entitic mass] by Automated count 26.7-34.0 [facility] MCHC Auto (RBC) [Mass/Vol]on 08-25-2024 MCHC (RBC) [Mass/Vol] MCHC [Mass/volume] by Automated count 29.9-35.2 [facility] MCV Auto (RBC) [Entitic vol] on 08-25-2024 MCV (RBC) [Entitic vol] MCV [Entitic volume] by Automated count 81.0-99.0 [facility] Monocytes Auto (Bld) [#/Vol] on 08-25-2024 Monocytes (Bld) [#/Vol] Automated blood monocyte count 0.3-0.8 [facility] Monocytes/100 WBC Auto (Bld) on 08-25-2024 Monocytes/100 WBC (Bld) Automated monocyte % 1.7-12.0 [facility] Neutrophils Auto (Bld) [#/Vo l]on 08-25-2024 Neutrophils (Bld) [#/Vol] Neutrophils [#/volume] in Blood by Automated count High 1.4-6.5 [facility] Neutrophils/100 WBC Auto (Bl d)on 08-25-2024 Neutrophils/100 WBC (Bld) Automated neutrophil % 43.0-75.0 [facility] No Panel Informationon 08-25 Eosinophils # (Auto) 0.1 10 3/uL 0.0-0.7 [facility] Immature Granulocyte # (Auto) 0.03 10 3/uL 0.00-0.03 [facility] Platelet mean volume Auto (B ld) [Entitic vol]on 08-25-2024 Platelet mean volume (Bld) [Entitic vol] Platelet mean volume [Entitic volume] in Blood by Automated count 9.5-13.5 [facility] Platelets Auto (Bld) [#/Vol] on 08-25-2024 Platelets (Bld) [#/Vol] Platelets [#/volume] in Blood by Automated count 150-450 [facility] RBC Auto (Bld) [#/Vol]on RBC (Bld) [#/Vol] Erythrocytes [#/volu me] in Blood by Automated count Low 4.20-5.40 [facility] Urinalysis macro (dipstick) panel (U)on 08-23-2024 Bilirubin, UA Negative Negative - 4(70) +++ mg/dL [facility] Blood, UA Negative Negative - 50 Dain/mcL [facility] Clarity, UA Clear [facility] Color, UA Yellow [facility] Glucose, UA Negative Negative - 1999(110) ++++ mg/dL [facility] Interpretation and review of laboratory results Abnormal [facility] Ketones, UA Negative Negative - 160(16) ++++ mg/dL [facility] Leukocytes, UA Positive Negative - 500+++ Chaparrita/mcL [facility] Comment on above: small Nitrite, UA Negative Negative - Positive [facility] pH, UA 7 5 - 9 [facility] Protein, UA Negative Negative - 1999(20) ++++ mg/dL [facility] Spec Grav, UA 1.02 1 - 1.03 [facility] Urobilinogen, UA 0.2 0.2 - 12 mg/dL [facility] Thyroid Stimulating Hormoneo n 07-31-2024 TSH Qn 2.07 m[IU]/L Normal 0.45-5.[address] [facility] Comment on above: Result Comment: PERF ORMED BY: [facility] [address] [place] [address] PATHOLOGIST BLANKING PRESS OPERATOR MIS SCHMIDT M.D. Performed By: #### T SH3 ####[facility] [place] [address] [facility] Thyrotropin [Units/volume] i n Serum or PlasmaOrdered By: Brain Way on 07-31-2024 TSH Qn Thyrotropin [Units/v olume] in Serum or Plasma 0.45-5.33 [facility] Urinalysis macro (dipstick) panel (U)on 07-11-2024 Bilirubin, UA Negative Negative - 4(70) +++ mg/dL [facility] Blood, UA Negative Negative - 50 Dain/mcL [facility] Clarity, UA Clear [facility] Color, UA Yellow [facility] Glucose, UA Negative Negative - 1999(110) ++++ mg/dL [facility] Interpretation and review of laboratory results Abnormal [facility] Ketones, UA Negative Negative - 160(16) ++++ mg/dL [facility] Leukocytes, UA Trace Negative - 500+++ Chaparrita/mcL [facility] Nitrite, UA Negative Negative - Positive [facility] pH, UA 6 5 - 9 [facility] Protein, UA Negative Negative - 1999(20) ++++ mg/dL [facility] Spec Grav, UA 1.01 1 - 1.03 [facility] Urobilinogen, UA 0.2 0.2 - 12 mg/dL [facility] Alpha-fetoprotein (AFP) luis urement (dwqhodet-uf-rapepf)Ordered By: Brain Way on 06-28-2024 AFP [MoM] Alpha-fetoprotein (A FP) measurement (aklngdqe-dc-tzylge) . [facility] Determination of gestational ageOrdered By: Brain Way on 06-28-2024 Gestational age Assess gestational age . [facility] Estimation of maternal age-s pecific risk of Down syndrome birthOrdered By: Brain Way on 06-28-2024 Age [Time] Estimation of matern al age-specific risk of Down syndrome . [facility] Human chorionic gonadotropin (hCG) multiple of median measurementOrdered By: Brain Way on 06-28-2024 HCG [MoM] Human chorionic gonadotropin (hCG) multiple of median measurement . [facility] Insulin dependent diabetes m ellitus detectionOrdered By: Brain Way on 06-28-2024 Insulin dependent diabetes mellitus Ql Insulin dependent diabetes mellitus detection . [facility] Interpretation of serum or p lasma second trimester quad maternal screen (narrative reOrdered By: Brain Way on 06-28-2024 Second trimester quad maternal screen Mathew [Interp] Interpretation of serum or plasma second trimester quad maternal screen (narrative re . [facility] Comment on above: Interpretation:An in terpretation CANNOT be provided for this patientbecause necessary patient information was not provided (oneor more of: gestational age, weight, or patient age).Please call us with new clinical information.Recalculations are not recommended when gestational datingby LMP and ultrasound are within 10 days. No Panel InformationOrdered By: Brain Way on 06-28-2024 AFP Triple Screen Comment Comment . [facility] Comment on above: Stephanie Pinto , Ph.D., DABCCDirectorReferences: Available Upon Request.Multiples Of Median Cutoffs Abbreviation Definitions For AFP Elevations IDD- Insulin Dep DiabetesSingleton 2.5 Black 2.8 OSBR- Open Spina BifidaIDD 2.0 Twins 4.5 RiskDSR Cutoff 1:270 DSR- Down Syndrome RiskT18 Cutoff 1:100 T18- Trisomy 18For further inquiries contact [employer] [facility] Servicesat [phone].This test was developed and its performance characteristicsdetermined by [employer]. It has not been cleared or approvedby the Food and Drug Administration.Performed at: [facility] [employer] [id number] [place], [place] [id number] Director: Aubrey Moreno [facility], Phone: [phone] Alpha Fetoprotein Results Received Report . [facility] Down Syndrome Age Equivalent See interpretation. . [facility] Gestational Age Calculation Method Ultrasound . [facility] Comment on above: 18:5 on 06/12/2024 Maternal Quad Test Risk See interpretation. . [facility] Maternal Race . [facility] Multiple No . [facility] Serum or plasma chtzv-8-frqs protein measurement (mass/volume)Ordered By: Brain Way on 06-28-2024 AFP [Mass/Vol] Serum or plasma szsux-8-tdtdkbrbvew measurement (mass/volume) . [facility] Serum or plasma inhibin A me asurement (adjusted xnyembeu-gt-gfnhqo)Ordered By: Brain Way on 06-28-2024 Inhibin A adjusted [MoM] Serum or plasma inhibin A measurement (adjusted wcppdfub-al-tikciu) . [facility] Serum or plasma inhibin A me asurement (mass/volume)Ordered By: Brain Way on 06-28-2024 Inhibin A [Mass/Vol] Inhibin A [Mass/vol ume] in Serum or Plasma . [facility] Serum or plasma total combin ed intact choriogonadotropin and beta subunit measurementOrdered By: Brain Way on 06-28-2024 HCG.intact+Beta subunit Qn Serum or plasma total combined intact choriogonadotropin and beta subunit measurement . [facility] Serum or plasma unconjugated estriol (E3) measurement (adjusted gtudejgc-ec-rxeilq)Ordered By: Brain Way on 06-28-2024 E3.unconjugated adjusted [MoM] Serum or plasma unconjugated estriol (E3) measurement (adjusted iyffauqj-kh-srmnye) . [facility] Serum or plasma unconjugated estriol (E3) measurement (mass/volume)Ordered By: Brain Way on 06-28-2024 E3.unconjugated [Mass/Vol] Serum or plasma unconjugated estriol (E3) measurement (mass/volume) . [facility] Thyroid Stimulating Hormoneo n 06-28-2024 TSH Qn 3.44 m[IU]/L Normal 0.45-5.[address] [facility] Comment on above: Result Comment: PERF ORMED BY: [facility] [address] [place] [address] PATHOLOGIST BLANKING PRESS OPERATOR JORDI SMITH M.D. Performed By: #### T SH3 #### [place] [id number] [facility] Thyrotropin [Units/volume] i n Serum or PlasmaOrdered By: Brain Way on 06-28-2024 TSH Qn Thyrotropin [Units/v olume] in Serum or Plasma 0.45-5.33 [facility] Trisomy 21 risk determinatio n in fetusOrdered By: Brain Way on 06-28-2024 Trisomy 21 risk Qn (fetus) Trisomy 21 risk determination in fetus . [facility] US OB >= 14 weeks Fetuson US OB >= 14 weeks Fetus [facility] [address] [place] [address] [place] [address] Ultrasound Report Signed Patient: Tawnya Herring MR#: [id number] 29 : 1995 Acct:[id number] Age/Sex: 28 / F ADM Date: 06/22/24 Loc: Room: Type: [facility] Attending Dr: Brain Way DO Ordering Provider: Brain Way Date of Service: 06/22/24 US/US OB >= 14 weeks Fetus: Z36.89 Copies to: Brain HERNANDEZ ultrasound. Reason for exam:Anatomy and cervical length. [...] length. Impression dictated by: Zay Norton Jr., D.OEfren06/22/2024 4:00 PM Dictation Location: [employer] Tech: Rae De Paz Transcribed By: AGUILAR 06/22/24 1600 Dictated By: Zay Norton Jr, DO 06/22/24 1552 Signed By: 06/22/24 1600 Normal [facility] Urinalysis macro (dipstick) panel (U)on 06-12-2024 Bilirubin, UA Negative Negative - 4(70) +++ mg/dL [facility] Blood, UA Negative Negative - 50 Dain/mcL [facility] Clarity, UA Clear [facility] Color, UA Yellow [facility] Glucose, UA Negative Negative - 1999(110) ++++ mg/dL [facility] Interpretation and review of laboratory results Abnormal [facility] Ketones, UA Negative Negative - 160(16) ++++ mg/dL [facility] Leukocytes, UA Positive Negative - 500+++ Chaparrita/mcL [facility] Comment on above: small Nitrite, UA Negative Negative - Positive [facility] pH, UA 6 5 - 9 [facility] Protein, UA Negative Negative - 2000(20) ++++ mg/dL [facility] Spec Grav, UA 1.025 1 - 1.03 [facility] Urobilinogen, UA 1.0 0.2 - 12 mg/dL [facility] Thyrotropin [Units/volume] i n Serum or PlasmaOrdered By: Brain Way on 05-24-2024 TSH Qn 2.42 m[IU]/L Normal 0.45-5.33 [facility] Comment on above: Result Comment: PERF ORMED BY: [place] [address] PATHOLOGIST BLANKING PRESS OPERATOR JORDI SMITH M.D. Performed By: #### T SH3 #### [address] TSH Qn Thyrotropin [Units/v olume] in Serum or Plasma 0.45-5.33 [facility] Urinalysis macro (dipstick) panel (U)on 05-10-2024 Bilirubin, UA Negative Negative - 4(70) +++ mg/dL [facility] Blood, UA Negative Negative - 50 Dain/mcL [facility] Clarity, UA Clear [facility] Color, UA Yellow [facility] Glucose, UA Negative Negative - 1999(110) ++++ mg/dL [facility] Interpretation and review of laboratory results Normal [facility] Ketones, UA Negative Negative - 160(16) ++++ mg/dL [facility] Leukocytes, UA Negative Negative - 500+++ Chaparrita/mcL [facility] Nitrite, UA Negative Negative - Positive [facility] pH, UA 6.5 5 - 9 [facility] Protein, UA Negative Negative - 1999(20) ++++ mg/dL [facility] Spec Grav, UA 1.020 1 - 1.03 [facility] Urobilinogen, UA 1.0 0.2 - 12 mg/dL [facility] IGP,APTIMA HPV,AGE GDLNon AGE GDLN ACOG TESTING Note . [facility] Comment on above: TESTS RESULT FLAG UN ITS REF RANGE LAB Clinician Provided Cytology Information Source.............Cervix No. of containers..01 ThinPrep Vial Age Algo ACOG Mariel... FLAG LEGEND: L-Low Normal,H-High Normal,LL-Alert Low,HH-Alert High <-Panic Low,>-Panic High,A-Abnormal,AA-Critical Abnormal Performed at: 01 =G [facility] [address] [place] [address] Christelle Christina Galan MD, IGP, RFX APTIMA HPV ASCU Note . [facility] Comment on above: TESTS RESULT FLAG UN ITS REF RANGE LAB DIAGNOSIS: 02 NEGATIVE FOR INTRAEPITHELIAL LESION OR MALIGNANCY. Specimen adequacy: 02 Satisfactory for evaluation. Endocervical and/or squamous metaplastic cells (endocervical component) are present. Performed by: 02 Vanessa Ornelas, Medical Center Director . 02 Note: Note 02 The Pap [...] High,A-Abnormal,AA-Critical Abnormal Performed at: 02 WB [facility] [address], [place] [address] Christelle Galan MD, Performed at: =[address] [id number] Suppository Molding Machine Operator: Christelle Galan MD, Phone: [phone] Performed at: [address] [id number] Suppository Molding Machine Operator: Christelle Galan MD, Phone: [phone] [facility] URETHRITIS/DISCHARGE PLUS VA GINITIS (HTRX)on 04-22-2024 ATOPOBIUM VAGINAE 0.000 [facility] ATOPOBIUM VAGINAE Not detected [facility] BVAB 2,3 (BACTERIAL VAGINOSIS ASSOCIATED BACTERIA 2, 3); MOBILUNCUS SPP 24.821 Abnormal [facility] BVAB 2,3 (BACTERIAL VAGINOSIS ASSOCIATED BACTERIA 2, 3); MOBILUNCUS SPP Detected Abnormal [facility] JANET ALBICANS, PARAPSILOSIS, TROPICALIS 0.000 [facility] JANET ALBICANS, PARAPSILOSIS, TROPICALIS Not detected [facility] JANET GLABRATA 0.000 [facility] JANET GLABRATA Not detected [facility] JANET KRUSEI 0.000 [facility] JANET KRUSEI Not detected [facility] CHLAMYDIA TRACHOMATIS 0.000 [facility] CHLAMYDIA TRACHOMATIS Not detected N OMS [facility] GARDNERELLA VAGINALIS 0.000 [facility] GARDNERELLA VAGINALIS Not detected N S [facility] Interpretation and review of laboratory results Abnormal [facility] MEGASPHAERA (TYPES 1, 2) 0.000 [facility] MEGASPHAERA (TYPES 1, 2) Not detected [facility] MYCOPLASMA GENITALIUM 0.000 [facility] MYCOPLASMA GENITALIUM Not detected N S [facility] NEISSERIA GONORRHOEAE 0.000 [facility] NEISSERIA GONORRHOEAE Not detected N OMS [facility] TRICHOMONAS VAGINALIS 0.000 [facility] TRICHOMONAS VAGINALIS Not detected N S [facility] Urinalysis macro (dipstick) panel (U)on 04-20-2024 Bilirubin, UA Negative Negative - 4(70) +++ mg/dL [facility] Blood, UA Positive Negative - 50 Dain/mcL [facility] Comment on above: trace-intact Clarity, UA Clear NOMS [facility] Color, UA Yellow [facility] Glucose, UA Negative Negative - 1999(110) ++++ mg/dL [facility] Interpretation and review of laboratory results Abnormal [facility] Ketones, UA Negative Negative - 160(16) ++++ mg/dL [facility] Leukocytes, UA Trace Negative - 500+++ Chaparrita/mcL [facility] Nitrite, UA Negative Negative - Positive [facility] pH, UA 6.0 5 - 9 [facility] Protein, UA Negative Negative - 1999(20) ++++ mg/dL [facility] Spec Grav, UA 1.030 1 - 1.03 [facility] Urobilinogen, UA 0.2 0.2 - 12 mg/dL [facility] CBC without diffon Hematocrit (Bld) [Volume fraction] 37.3 % [facility] Hemoglobin (Bld) [Mass/Vol] 13.3 g/dL [facility] Rbc Mcv (Fl) By Automated Count 92.1 [facility] No Panel Informationon 04-13 [facility] Rubella IGG immune statuson 04-13-2024 Rubella immune IgG 1.33 [facility] Syphilis Total(Unknown Syphi lis Status)on 04-13-2024 Syphilis Non-Reactive [facility] TBH BOX TEST SENT OUTon 03-17 BOX TEST SENT OUT 04/13/24 [facility] Drug Screen, Urineon 024 Amphetamine/Methamphe tamine Negative [facility] Barbiturate Screen Urine Negative [facility] Benzodiazepine Screen, Urine Negative [facility] Cocaine Metabolite Negative [facility] Methadone,Meconium Negative [facility] Opiate Quantitative Urine Negative [facility] Oxycodone Negative [facility] Phencyclidine Negative [facility] Thc Marijuana, Urine Negative [facility] HCG ( test) Ql (U)o n 04-07-2024 Interpretation and review of laboratory results Abnormal [facility] Preg Test, Ur Positive [facility] Urinalysis macro (dipstick) panel (U)on 04-07-2024 Bilirubin, UA Negative Negative - 4(70) +++ mg/dL [facility] Blood, UA Negative Negative - 50 Dain/mcL [facility] Clarity, UA Clear [facility] Color, UA Yellow [facility] Glucose, UA Negative Negative - 1999(110) ++++ mg/dL [facility] Interpretation and review of laboratory results Abnormal [facility] Ketones, UA Negative Negative - 160(16) ++++ mg/dL [facility] Leukocytes, UA Positive Negative - 500+++ Chaparrita/mcL [facility] Comment on above: small Nitrite, UA Negative Negative - Positive [facility] pH, UA 7.0 5 - 9 [facility] Protein, UA Negative Negative - 1999(20) ++++ mg/dL [facility] Spec Grav, UA 1.025 1 - 1.03 [facility] Urobilinogen, UA 0.2 0.2 - 12 mg/dL [facility] Automated basophil %Ordered By: Addi Ortega on 04-06-2024 Basophils/100 WBC (Bld) 0.2 % Normal . [facility] Comment on above: Performed By: #### P ILLAR TSH, PILLAR LIPID, PILLAR CBC, PILLAR BMP #### [address] Automated basophil countOrde red By: Addi Ortega on 04-06-2024 Basophils (Bld) [#/Vol] 0.0 10*3/uL Normal 0.0-0.2 [facility] Comment on above: Result Comment: PERF ORMED BY: [place] [address] PATHOLOGIST BLANKING PRESS OPERATOR JORDI SMITH M.D. Performed By: #### P ILLAR TSH, PILLAR LIPID, PILLAR CBC, PILLAR BMP #### [address] Automated blood monocyte cou ntOrdered By: Addi Ortega on 04-06-2024 Monocytes (Bld) [#/Vol] 0.5 10*3/uL Normal 0.0-0.8 [facility] Comment on above: Performed By: #### P ILLAR TSH, PILLAR LIPID, PILLAR CBC, PILLAR BMP #### [facility] [address] [place] [address] Automated eosinophil %Ordere d By: Addi Ortega on 04-06-2024 Eosinophils/100 WBC (Bld) 0.5 % Normal . [facility] Comment on above: Performed By: #### P ILLAR TSH, PILLAR LIPID, PILLAR CBC, PILLAR BMP #### [facility] [address] Automated eosinophil countOr dered By: Addi Ortega on 04-06-2024 Eosinophils (Bld) [#/Vol] 0.0 10*3/uL Normal 0.0-0.45 [facility] Comment on above: Performed By: #### P ILLAR TSH, PILLAR LIPID, PILLAR CBC, PILLAR BMP #### [facility] [address] [place] [address] Automated monocyte %Ordered By: Addi Ortega on 04-06-2024 Monocytes/100 WBC (Bld) 5.6 % Normal . [facility] Comment on above: Performed By: #### P ILLAR TSH, PILLAR LIPID, PILLAR CBC, PILLAR BMP #### [facility] [address] Automated neutrophil %Ordere d By: Addi Ortega on 04-06-2024 Neutrophils/100 WBC (Bld) 64.9 % Normal . [facility] Comment on above: Performed By: #### P ILLAR TSH, PILLAR LIPID, PILLAR CBC, PILLAR BMP #### [facility] [address] [place] [address] Basophils Auto (Bld) [#/Vol] Ordered By: Addi Ortega on 04-06-2024 Basophils (Bld) [#/Vol] Automated basophil count 0.0-0.2 [facility] Basophils/100 WBC Auto (Bld) Ordered By: Addi Ortega on 04-06-2024 Basophils/100 WBC (Bld) Automated basophil % . [facility] Calcium [Mass/volume] in Ser um or PlasmaOrdered By: Addi Ortega on 04-06-2024 Calcium [Mass/Vol] 8.9 mg/dL Normal 8.6-10.3 [facility] Comment on above: Performed By: #### P ILLAR TSH, PILLAR LIPID, PILLAR CBC, PILLAR BMP #### [facility] [address] [place] [id number] [place] Calcium [Mass/Vol] Calcium [Mass/volume ] in Serum or Plasma 8.6-10.3 [facility] Carbon dioxide, total [Moles /volume] in Serum or PlasmaOrdered By: Addi Ortega on 04-06-2024 CO2 [Moles/Vol] 22.0 mmol/L Normal 21.0-31.0 [facility] Comment on above: Performed By: #### P ILLAR TSH, PILLAR LIPID, PILLAR CBC, PILLAR BMP #### [facility] [address] [place] [id number] [place] CO2 [Moles/Vol] Carbon dioxide, tota l [Moles/volume] in Serum or Plasma 21.0-31.0 [facility] Chloride [Moles/volume] in S ghada or PlasmaOrdered By: Addi Ortega on 04-06-2024 Chloride [Moles/Vol] 106 mmol/L Normal 98-107 [facility] Comment on above: Performed By: #### P ILLAR TSH, PILLAR LIPID, PILLAR CBC, PILLAR BMP #### [facility] [address] [place] [id number] [place] Chloride [Moles/Vol] Chloride [Moles/vol ume] in Serum or Plasma 98-107 [facility] Cholesterol [Mass/volume] in Serum or PlasmaOrdered By: Addi Ortega on 04-06-2024 Cholesterol [Mass/Vol] 159 mg/dL Normal 140-200 [facility] Comment on above: Chol less than 200 m g/dl low riskChol 201-239 mg/dl borderline riskChol 240 mg/dl and greater high risk Result Comment: Chol less than 200 mg/dl low risk Chol 201-239 mg/dl borderline risk Chol 240 mg/dl and greater high risk Performed By: #### P ILLAR TSH, PILLAR LIPID, PILLAR CBC, PILLAR BMP #### [facility] [address] [place] [id number] [place] Cholesterol [Mass/Vol] Cholesterol [Mass/volume] in Serum or Plasma 140-200 [facility] Comment on above: Chol less than 200 m g/dl low riskChol 201-239 mg/dl borderline riskChol 240 mg/dl and greater high risk Cholesterol in HDL [Mass/vol ume] in Serum or PlasmaOrdered By: Addi Ortega on 04-06-2024 Cholesterol in HDL [Mass/Vol] Serum or plasma high density lipoprotein (HDL) cholesterol measurement 23- [facility] Comment on above: HDL CHOL ATP-III CLA SSIFICATION Cardiovascular RiskHDL > or equal to 60 mg/dL LOWHDL < 40 mg/dL HIGH Cholesterol in LDL Calc [Mas s/Vol]Ordered By: Addi Ortega on 04-06-2024 Cholesterol in LDL [Mass/Vol] 95 mg/dL 0-100 [facility] Comment on above: LDL ATP III CLASSIFI CATIONLDL less than 100 mg/dL OptimalLDL 100-129 mg/dL Near or above optimalLDL 130-159 mg/dL Borderline highLDL 160-189 mg/dL HighLDL greater than 189 mg/dL Very high Cholesterol in LDL [Mass/Vol] Cholesterol in LDL [Mass/volume] in Serum or Plasma by calculation 0-100 [facility] Comment on above: LDL ATP III CLASSIFI CATIONLDL less than 100 mg/dL OptimalLDL 100-129 mg/dL Near or above optimalLDL 130-159 mg/dL Borderline highLDL 160-189 mg/dL HighLDL greater than 189 mg/dL Very high Cholesterol in VLDL Calc [Ma ss/Vol]Ordered By: Addi Ortega on 04-06-2024 Cholesterol in VLDL [Mass/Vol] 15 mg/dL [facility] Cholesterol in VLDL [Mass/Vol] Cholesterol in VLDL [Mass/volume] in Serum or Plasma by calculation [facility] Creatinine [Mass/volume] in Serum or PlasmaOrdered By: Addi Ortega on 04-06-2024 Creatinine [Mass/Vol] 0.44 mg/dL Low 0.60-1.20 [facility] Comment on above: Performed By: #### P ILLAR TSH, PILLAR LIPID, PILLAR CBC, PILLAR BMP #### [address] Creatinine [Mass/Vol] Creatinine [Mass/v olume] in Serum or Plasma Low 0.60-1.20 [facility] Employee Basic Metabolic Suero nargis 04-06-2024 GFR/1.73 sq M.predicted MDRD (S/P/Bld) [Vol rate/Area] mL/min/{1.73_m2} Normal [facility] Comment on above: Performed By: #### P ILLAR TSH, PILLAR LIPID, PILLAR CBC, PILLAR BMP #### [facility] [address] Employee Complete Blood Coun ton 04-06-2024 Mean Corpuscular HGB Conc 35.4 g/dL High 32.0-35.0 [facility] [facility] Comment on above: Performed By: #### P ILLAR TSH, PILLAR LIPID, PILLAR CBC, PILLAR BMP #### [address] NRBC% 0.0 /100{WBC} Normal 0-0.[address] [facility] Comment on above: Performed By: #### P ILLAR TSH, PILLAR LIPID, PILLAR CBC, PILLAR BMP #### [facility] [address] Employee Lipid Profileon LDL Cholesterol,Calculate d 95 mg/dL Normal 0-100 [facility] Comment on above: Result Comment: LDL ATP III CLASSIFICATION LDL less than 100 mg/dL Optimal LDL 100-129 mg/dL Near or above optimal LDL 130-159 mg/dL Borderline high LDL 160-189 mg/dL High LDL greater than 189 mg/dL Very high Performed By: #### P ILLAR TSH, PILLAR LIPID, PILLAR CBC, PILLAR BMP #### [facility] [address] Triglyceride w/Reflex 79 mg/dL Normal 0-149 [facility] Comment on above: Result Comment: TRIG ATP III CLASSIFICATION TRIG less than 150 mg/dL Normal TRIG 150-199 mg/dL Borderline high TRIG 200-500 mg/dL High TRIG greater than 500 mg/dL Very high Standard traceable to the Center for Disease Conrtrol and Prevention (CDC) test method. Performed By: #### P ILLAR TSH, PILLAR LIPID, PILLAR CBC, PILLAR BMP #### [facility] [address] VLDL CHOLESTEROL 15 mg/dL Normal The [facility] Comment on above: Performed By: #### P ILLAR TSH, PILLAR LIPID, PILLAR CBC, PILLAR BMP #### [facility] [address] Employee Thyroid Stim Hormon gokul 04-06-2024 Employee Thyroid Stim Hormone 2.72 u[iU]/mL Normal 0.45-5.33 [facility] Comment on above: Result Comment: PERF ORMED BY: [place] [address] PATHOLOGIST BLANKING PRESS OPERATOR JORDI SMITH M.D. Performed By: #### P ILLAR TSH, PILLAR LIPID, PILLAR CBC, PILLAR BMP #### [address] Eosinophils Auto (Bld) [#/Vo l]Ordered By: Addi Ortega on 04-06-2024 Eosinophils (Bld) [#/Vol] Automated eosinophil count 0.0-0.45 [facility] Eosinophils/100 WBC Auto (Bl d)Ordered By: Addi Ortega on 04-06-2024 Eosinophils/100 WBC (Bld) Automated eosinophil % . [facility] Erythrocyte distribution wid th Auto (RBC) [Ratio]Ordered By: Addi Ortega on 04-06-2024 Erythrocyte distribution width (RBC) [Ratio] Erythrocyte distribution width [Ratio] by Automated count 11.9-15.3 [facility] Erythrocyte distribution wid th [Ratio] by Automated countOrdered By: Addi Ortega on 04-06-2024 Erythrocyte distribution width (RBC) [Ratio] 12.7 % Normal 11.9-15.3 [facility] Comment on above: Performed By: #### P ILLAR TSH, PILLAR LIPID, PILLAR CBC, PILLAR BMP #### [facility] [address] [place] [address] Erythrocytes [#/volume] in B lood by Automated countOrdered By: Addi Ortega on 04-06-2024 RBC (Bld) [#/Vol] 4.04 10*6/uL Normal 3.60-5.00 [facility] Comment on above: Performed By: #### P ILLAR TSH, PILLAR LIPID, PILLAR CBC, PILLAR BMP #### [facility] [address] [place] [address] [place] Glucose [Mass/volume] in Ser um or PlasmaOrdered By: Addi Ortega on 04-06-2024 Glucose [Mass/Vol] 82 mg/dL Normal 70-100 [facility] Comment on above: Performed By: #### P ILLAR TSH, PILLAR LIPID, PILLAR CBC, PILLAR BMP #### [facility] [address] Glucose [Mass/Vol] Glucose [Mass/volume ] in Serum or Plasma 70-100 [facility] Hematocrit Auto (Bld) [Volum e fraction]Ordered By: Addi Ortega on 04-06-2024 Hematocrit (Bld) [Volume fraction] Hematocrit [Volume Fraction] of Blood by Automated count 34.0-46.4 [facility] Hematocrit [Volume Fraction] of Blood by Automated countOrdered By: Addi Ortega on 04-06-2024 Hematocrit (Bld) [Volume fraction] 37.6 % Normal 34.0-46.4 [facility] Comment on above: Performed By: #### P ILLAR TSH, PILLAR LIPID, PILLAR CBC, PILLAR BMP #### [facility] [address] [place] [address] [place] Hemoglobin [Mass/volume] in BloodOrdered By: Addi Ortega on 04-06-2024 Hemoglobin (Bld) [Mass/Vol] 13.3 g/dL Normal 11.8-15.4 [facility] Comment on above: Performed By: #### P ILLAR TSH, PILLAR LIPID, PILLAR CBC, PILLAR BMP #### [facility] [address] Hemoglobin (Bld) [Mass/Vol] Hemoglobin [Mass/volume] in Blood 11.8-15.4 [facility] Leukocytes [#/volume] correc hamilton for nucleated erythrocytes in Blood by Automated counOrdered By: Addi Ortega on 04-06-2024 WBC corrected for nucl RBC Auto (Bld) [#/Vol] 8.9 10*3/uL 3.8-11.6 [facility] WBC corrected for nucl RBC Auto (Bld) [#/Vol] Leukocytes [#/volume] corrected for nucleated erythrocytes in Blood by Automated coun 3.8-11.6 [facility] Leukocytes [#/volume] in Blo od by Automated countOrdered By: Addi Ortega on 04-06-2024 WBC (Bld) [#/Vol] 8.9 10*3/uL Normal 3.8-11.6 [facility] Comment on above: Performed By: #### P ILLAR TSH, PILLAR LIPID, PILLAR CBC, PILLAR BMP #### [address] Lymphocytes Auto (Bld) [#/Vo l]Ordered By: Addi Ortega on 04-06-2024 Lymphocytes (Bld) [#/Vol] Lymphocytes [#/volume] in Blood by Automated count 1.00-4.8 [facility] Lymphocytes [#/volume] in Bl ood by Automated countOrdered By: Addi Ortega on 04-06-2024 Lymphocytes (Bld) [#/Vol] 2.5 10*3/uL Normal 1.00-4.8 [facility] Comment on above: Performed By: #### P ILLAR TSH, PILLAR LIPID, PILLAR CBC, PILLAR BMP #### [facility] [address] [place] [address] [place] Lymphocytes/100 WBC Auto (Bl d)Ordered By: Addi Ortega on 04-06-2024 Lymphocytes/100 WBC (Bld) Lymphocytes/100 leukocytes in Blood by Automated count . [facility] Lymphocytes/100 leukocytes i n Blood by Automated countOrdered By: Addi Ortega on 04-06-2024 Lymphocytes/100 WBC (Bld) 28.8 % Normal . [facility] Comment on above: Performed By: #### P ILLAR TSH, PILLAR LIPID, PILLAR CBC, PILLAR BMP #### [facility] [address] [place] [address] MCH Auto (RBC) [Entitic mass ]Ordered By: Addi Ortega on 04-06-2024 MCH (RBC) [Entitic mass] MCH [Entitic mass] by Automated count 24.7-34.3 [facility] MCH [Entitic mass] by Automa hamilton countOrdered By: Addi Ortega on 04-06-2024 MCH (RBC) [Entitic mass] 32.9 pg Normal 24.7-34.3 [facility] Comment on above: Performed By: #### P ILLAR TSH, PILLAR LIPID, PILLAR CBC, PILLAR BMP #### [facility] [address] MCHC Auto (RBC) [Mass/Vol]Or dered By: Addi Ortega on 04-06-2024 MCHC (RBC) [Mass/Vol] 35.4 g/dL High 32.0-35.0 [facility] MCHC (RBC) [Mass/Vol] MCHC [Mass/volume] by Automated count High 32.0-35.0 [facility] MCV Auto (RBC) [Entitic vol] Ordered By: Addi Ortega on 04-06-2024 MCV (RBC) [Entitic vol] MCV [Entitic volume] by Automated count 80-100 [facility] MCV [Entitic volume] by Auto mated countOrdered By: Addi Ortega on 04-06-2024 MCV (RBC) [Entitic vol] 93.2 fL Normal 80-100 [facility] Comment on above: Performed By: #### P ILLAR TSH, PILLAR LIPID, PILLAR CBC, PILLAR BMP #### [facility] [address] Monocytes Auto (Bld) [#/Vol] Ordered By: Addi Ortega on 04-06-2024 Monocytes (Bld) [#/Vol] Automated blood monocyte count 0.0-0.8 [facility] Monocytes/100 WBC Auto (Bld) Ordered By: Addi Ortega on 04-06-2024 Monocytes/100 WBC (Bld) Automated monocyte % . [facility] Neutrophils Auto (Bld) [#/Vo l]Ordered By: Addi Ortega on 04-06-2024 Neutrophils (Bld) [#/Vol] Neutrophils [#/volume] in Blood by Automated count 1.8-7.7 [facility] Neutrophils [#/volume] in Bl ood by Automated countOrdered By: Addi Ortega on 04-06-2024 Neutrophils (Bld) [#/Vol] 5.8 10*3/uL Normal 1.8-7.7 [facility] Comment on above: Performed By: #### P ILLAR TSH, PILLAR LIPID, PILLAR CBC, PILLAR BMP #### [facility] [address] [place] [address] [place] Neutrophils/100 WBC Auto (Bl d)Ordered By: Addi Ortega on 04-06-2024 Neutrophils/100 WBC (Bld) Automated neutrophil % . [facility] No Panel InformationOrdered By: Addi Ortega on 04-06-2024 Estimated GFR (CKD-EPI) > 60.0 mL/Min [facility] Pharmacy Creatinine Clearance (Chem N/A [facility] Nucleated erythrocytes [Pres ence] in Blood by Automated countOrdered By: Addi Ortega on 04-06-2024 Nucleated RBC Auto Ql (Bld) 0.0 /100{WBC} 0-0.5 [facility] Nucleated RBC Auto Ql (Bld) Nucleated erythrocytes [Presence] in Blood by Automated count 0-0.5 [facility] Platelet mean volume Auto (B ld) [Entitic vol]Ordered By: Addi Ortega on 04-06-2024 Platelet mean volume (Bld) [Entitic vol] Platelet mean volume [Entitic volume] in Blood by Automated count 6.3-10.7 [facility] Platelet mean volume [Entiti c volume] in Blood by Automated countOrdered By: Addi Ortega on 04-06-2024 Platelet mean volume (Bld) [Entitic vol] 8.8 fL Normal 6.3-10.7 [facility] Comment on above: Performed By: #### P ILLAR TSH, PILLAR LIPID, PILLAR CBC, PILLAR BMP #### [facility] [address] [place] [address] [place] Platelets Auto (Bld) [#/Vol] Ordered By: Addi Ortega on 04-06-2024 Platelets (Bld) [#/Vol] Platelets [#/volume] in Blood by Automated count 150-450 [facility] Platelets [#/volume] in Bloo d by Automated countOrdered By: Addi Ortega on 04-06-2024 Platelets (Bld) [#/Vol] 274 10*3/uL Normal 150-450 [facility] Comment on above: Performed By: #### P ILLAR TSH, PILLAR LIPID, PILLAR CBC, PILLAR BMP #### [facility] [address] [place] [address] [place] Potassium [Moles/volume] in Serum or PlasmaOrdered By: Addi Ortega on 04-06-2024 Potassium [Moles/Vol] 4.0 mmol/L Normal 3.5-5.1 [facility] Comment on above: Performed By: #### P ILLAR TSH, PILLAR LIPID, PILLAR CBC, PILLAR BMP #### [facility] [address] [place] [address] [place] Potassium [Moles/Vol] Potassium [Moles/v olume] in Serum or Plasma 3.5-5.1 [facility] RBC Auto (Bld) [#/Vol]Ordere d By: Addi Ortega on 04-06-2024 RBC (Bld) [#/Vol] Erythrocytes [#/volu me] in Blood by Automated count 3.60-5.00 [facility] Serum or plasma anion gap de terminationOrdered By: Addi Ortega on 04-06-2024 Anion gap [Moles/Vol] 11.0 mmol/L Normal 6.0-15.0 [facility] Comment on above: Performed By: #### P ILLAR TSH, PILLAR LIPID, PILLAR CBC, PILLAR BMP #### [facility] [address] [place] [id number] [place] Anion gap [Moles/Vol] Serum or plasma an ion gap determination 6.0-15.0 [facility] Serum or plasma high density lipoprotein (HDL) cholesterol measurementOrdered By: Addi Ortega on 04-06-2024 Cholesterol in HDL [Mass/Vol] 48 mg/dL Normal 23-92 [facility] Comment on above: HDL CHOL ATP-III CLA SSIFICATION Cardiovascular RiskHDL > or equal to 60 mg/dL LOWHDL < 40 mg/dL HIGH Result Comment: HDL CHOL ATP-III CLASSIFICATION Cardiovascular Risk HDL > or equal to 60 mg/dL LOW HDL < 40 mg/dL HIGH Performed By: #### P ILLAR TSH, PILLAR LIPID, PILLAR CBC, PILLAR BMP #### [facility] [address] Serum or plasma total choles terol/high density lipoprotein (HDL) cholesterol mass ratOrdered By: Addi Ortega on 04-06-2024 Cholesterol.total/Cho lesterol in HDL [Mass ratio] 3.3 {ratio} Normal <5.0 [facility] Comment on above: Performed By: #### P ILLAR TSH, PILLAR LIPID, PILLAR CBC, PILLAR BMP #### [facility] [address] Cholesterol.total/Cho lesterol in HDL [Mass ratio] Serum or plasma total cholesterol/high density lipoprotein (HDL) cholesterol mass rat <5.0 [facility] Sodium [Moles/volume] in Ser um or PlasmaOrdered By: Addi Ortega on 04-06-2024 Sodium [Moles/Vol] 135 mmol/L Low 136-145 [facility] Comment on above: Performed By: #### P ILLAR TSH, PILLAR LIPID, PILLAR CBC, PILLAR BMP #### [facility] [address] Sodium [Moles/Vol] Sodium [Moles/volume ] in Serum or Plasma Low 136-145 [facility] Thyrotropin [Units/volume] i n Serum or PlasmaOrdered By: Addi Ortega on 04-06-2024 TSH Qn 2.72 m[IU]/L 0.45-5.33 [facility] TSH Qn Thyrotropin [Units/v olume] in Serum or Plasma 0.45-5.33 [facility] Triglyceride [Mass/volume] i n Serum or PlasmaOrdered By: Addi Ortega on 04-06-2024 Triglyceride [Mass/Vol] 79 mg/dL 0-149 [facility] Comment on above: TRIG ATP III CLASSIF ICATIONTRIG less than 150 mg/dL NormalTRIG 150-199 mg/dL Borderline highTRIG 200-500 mg/dL High TRIG greater than 500 mg/dL Very highStandard traceable to the Center for Disease Conrtrol and Prevention (CDC) test method. Triglyceride [Mass/Vol] Triglyceride [Mass/volume] in Serum or Plasma 0-149 [facility] Comment on above: TRIG ATP III CLASSIF ICATIONTRIG less than 150 mg/dL NormalTRIG 150-199 mg/dL Borderline highTRIG 200-500 mg/dL High TRIG greater than 500 mg/dL Very highStandard traceable to the Center for Disease Conrtrol and Prevention (CDC) test method. Urea nitrogen [Mass/volume] in Serum or PlasmaOrdered By: Addi Ortega on 04-06-2024 Urea nitrogen [Mass/Vol] 7 mg/dL Normal 03-09 [facility] Comment on above: Performed By: #### P ILLAR TSH, PILLAR LIPID, PILLAR CBC, PILLAR BMP #### [address] Urea nitrogen [Mass/Vol] Urea nitrogen [Mass/volume] in Serum or Plasma 03-09 [facility] WBC Auto (Bld) [#/Vol]Ordere d By: Addi Ortega on 04-06-2024 WBC (Bld) [#/Vol] Leukocytes [#/volume ] in Blood by Automated count 3.8-11.6 [facility] ED Note-Physicianon 03-20-20 ED Note-Physician ED Note-Physician [...] and Complexity of Problems Differential Diagnosis: [] [facility] Data External documents reviewed: [] [...] with the patient. 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 Discussed return precautions. [...] Nath In 3 days 03/21/[address], [address] [place] [address]- Business (1) Additional Instructions: DARWIN JONES In 3 days [address] [facility] [place] [address] [place] [phone] Business (1) Additional Instructions: Patient Education Threatened Miscarriage Subchorionic Hematoma Attestation Patient seen and evaluated by the physician assistant to the director. Attending physician was present in the emergency department and supervised care. This visit was performed by both the physician and an APC. I performed all aspects of the MDM as documented. This report was transcribed using voice recognition software. Every effort was made to ensure accuracy, however, inadvertently computerized telegraphic typewriter installer mistakes may be present. Appropriate healthc (more content not included)... Normal [facility] Comment on above: Result Comment: Elec tronically Signed By: Hector Correa PA-C\.br\Date and Time Signed: 03/18/24 12:11 EDT\.br\Electronically Co-Signed By: [place]an [place] DO\koby\Date and Time Co-Signed: 03/20/24 07:17 EDT ABO/Rhon 03-18-2024 ABO/Rh Negative Invalid Interpretation Code [facility] Comment on above: Performed By: #### 2 [id number] #### [facility] [address] [place] [address] BLOOD BANKOrdered By: Nikky Brennan on 03-18-2024 ABO/Rh Interp Negative Invalid Interpretation Code [facility] BB Subsection BMPon 03-18-2024 Anion gap [Moles/Vol] 12 mmol/L Normal 6-16 [facility] Comment on above: Performed By: #### 2 [id number] #### [facility] [address] [place] [address] Calcium [Mass/Vol] 9.2 mg/dL Normal 8.9-11.1 [facility] Comment on above: Performed By: #### 2 [id number] #### [facility] [address] [place] [address] Chloride [Moles/Vol] 105 mmol/L Normal 101-111 [facility] Comment on above: Performed By: #### 2 [id number] #### [facility] [address] [place] [address] CO2 [Moles/Vol] 23 mmol/L Normal 21-31 [facility] Comment on above: Performed By: #### 2 [id number] #### [facility] [address] [place] [address] Creatinine [Mass/Vol] 0.5 mg/dL Normal 0.5-1.3 [facility] Comment on above: Performed By: #### 2 [id number] #### [facility] [address] [place] [address] Glucose [Mass/Vol] 92 mg/dL Normal 55-199 [facility] Comment on above: Performed By: #### 2 [id number] #### [facility] [address] [place] [address] Potassium [Moles/Vol] 3.8 mmol/L Normal 3.5-5.3 [facility] Comment on above: Performed By: #### 2 [id number] #### [facility] [address] [place] [address] Sodium [Moles/Vol] 136 mmol/L Normal 135-145 [facility] Comment on above: Performed By: #### 2 [id number] #### [facility] [address] [place] [address] Urea nitrogen [Mass/Vol] 9 mg/dL Normal 5-21 [facility] Comment on above: Performed By: #### 2 [id number] #### [facility] [address] [place] [address] Urea nitrogen/Creatinine [Mass ratio] 18 No Units Normal 10-20 [facility] Comment on above: Performed By: #### 2 [id number] #### [facility] [address] [place] [address] BhCG Quanton 03-18-2024 [place] [address] m[IU]/mL High 1-3 F [facility] Comment on above: Result Comment: 'F N ON < 1 - 3' ' 0.2 - 1 WEEK = 5 TO 50' ' 1 - 2 WEEKS = 50 - 500' ' 2 - 3 WEEKS = 100 - 5000' ' 3 - 4 WEEKS = 500 - 34582' ' 4 - 5 WEEKS = 1000 - 14011' ' 5 - 6 WEEKS = 41012 - 049156' ' 6 - 8 WEEKS = 96107 - 131681' ' 8 - 12 WEEKS = 84143 - 457330' Performed By: #### 2 [id number] #### [facility] [address] [place] [address] CBC w/ Auto Diffon 4 Basophils/100 WBC (Bld) 0.6 % Normal 0.0-2.0 [facility] Comment on above: Performed By: #### 2 [id number] #### [facility] [address] [place] [address] Basophils/Leukocytes Auto (Bld) [Pure # fraction] 0.0 E9/L Normal 0.0-0.2 [facility] Comment on above: Performed By: #### 2 [id number] #### [facility] [address] [place] [address] Eosinophils (Bld) [#/Vol] 0.0 E9/L Normal 0.0-0.5 [facility] Comment on above: Performed By: #### 2 [id number] #### [facility] [address] [place] [address] Eosinophils/100 WBC (Bld) 0.5 % Normal 0.0-8.0 [facility] Comment on above: Performed By: #### 2 [id number] #### [facility] [address] [place] [address] Erythrocyte distribution width (RBC) [Ratio] 12.5 % Normal 10.9-14.2 [facility] Comment on above: Performed By: #### 2 [id number] #### [facility] [address] [place] [address] Hematocrit (Bld) [Volume fraction] 40.2 % Normal 34.0-46.0 [facility] Comment on above: Performed By: #### 2 [id number] #### [facility] [address] [place] [address] Hemoglobin (Bld) [Mass/Vol] 13.8 g/dL Normal 12.0-16.0 [facility] Comment on above: Performed By: #### 2 [id number] #### [facility] [address] [place] [address] Lymphocytes (Bld) [#/Vol] 2.4 E9/L Normal 1.0-4.0 [facility] Comment on above: Performed By: #### 2 [id number] #### [facility] [address] [place] [address] Lymphocytes/100 WBC (Bld) 28.4 % Normal 14.0-50.0 [facility] Comment on above: Performed By: #### 2 [id number] #### [facility] [address] [place] [address] MCH (RBC) [Entitic mass] 32.3 pg Normal 27.0-34.0 [facility] Comment on above: Performed By: #### 2 [id number] #### [facility] [address] [place] [address] MCHC (RBC) [Mass/Vol] 34.3 g/dL Normal 31.4-36.0 [facility] Comment on above: Performed By: #### 2 [id number] #### [facility] [address] [place] [address] MCV (RBC) [Entitic vol] 94.2 fL Normal 80.0-100.0 [facility] Comment on above: Performed By: #### 2 [id number] #### [facility] [address] [place] [address] Monocytes (Bld) [#/Vol] 0.4 E9/L Normal 0.2-1.0 [facility] Comment on above: Performed By: #### 2 [id number] #### [facility] [address] [place] [address] Neutrophils (Bld) [#/Vol] 5.4 E9/L Normal 2.0-7.5 [facility] Comment on above: Performed By: #### 2 [id number] #### [facility] [address] [place] [address] Neutrophils/100 WBC (Bld) 65.4 % Normal 36.0-75.0 [facility] Comment on above: Performed By: #### 2 [id number] #### [facility] [address] [place] [address] Platelet mean volume (Bld) [Entitic vol] 8.5 fL Normal 6.4-10.8 [facility] Comment on above: Performed By: #### 2 [id number] #### [facility] [address] [place] [address] Platelets (Bld) [#/Vol] 249.0 E9/L Normal 150.0-500. 0 [facility] Comment on above: Performed By: #### 2 [id number] #### [facility] [address] [place] [address] RBC (Bld) [#/Vol] 4.3 E12/L Normal 4.3-5.9 [facility] Comment on above: Performed By: #### 2 [id number] #### [facility] [address] [place] [address] WBC corrected for nucl RBC Auto (Bld) [#/Vol] 8.3 E9/L Normal 4.0-11.0 [facility] Comment on above: Performed By: #### 2 [id number] #### [facility] [address] [place] [address] CHEMISTRYOrdered By: SYSTEM SYSTEM on 03-18-2024 Anion [...] 199 mg/[place] [address] m[IU]/mL High 1 - 3 mIU/mL [facility] Comment on above: Result Comment: 'F N ON < 1 - 3' ' 0.2 - 1 WEEK = 5 TO 50' ' 1 - 2 WEEKS = 50 - 500' ' 2 - 3 WEEKS = 100 - 5000' ' 3 - 4 WEEKS = 500 - 89279' ' 4 - 5 WEEKS = 1000 - 13459' ' 5 - 6 WEEKS = 71844 - 674037' ' 6 - 8 WEEKS = 79228 - 695474' ' 8 - 12 WEEKS = 58295 - 040179' Potassium [Moles/Vol] 3.8 mmol/L Normal 3.5 - 5.3 mmol/L [facility] Sodium [Moles/Vol] 136 mmol/L Normal 135 - 145 mmol/L [facility] Urea nitrogen [Mass/Vol] 9 mg/dL Normal 5 - 21 mg/dL [facility] Urea nitrogen/Creatinine [Mass ratio] 18 mg/mg Normal 10 - 20 [facility] ED Clinical Summaryon 2023 ED Clinical Summary ED Clinical Summary [place] [id number] ED Clinical Summary Person Information Name: TAWNYA HERRING [facility] Age: 28 Years : 1995 Sex: Female Language: Mauritanian PCP: DARWIN JONES CNP Marital Status: Single Phone: [phone] Visit Id: Visit Reason: Vaginal bleeding - [...] 03/18/2024 12:15:02 03/18/2024 12:15:02 03/18/2024 12:15:02 ADDRESS: [address] [place] [phone] PHYS DOC NOTES: MEDICAL INFORMATION: Prescriptions Given: Medications to Continue with No Changes Other Medications citalopram (CeleXA 20 mg Tab) 1 Tablets By Mouth every day. PATIENT EDUCATION INFORMATION: Instructions: Threatened Miscarriage; Subchorionic Hematoma Follow up: With: Address: When: Rogelio Fish [address], [place] [address] Business (1) In 3 days 03/21/2024 With: Address: When: DARWIN JONES [address] [place] [address] [place] [phone] Business (1) In 3 days DIAGNOSIS: Subchorionic bleed; Threatened Normal [facility] ED Patient Summaryon 024 ED Patient Summary ED Patient Summary [address] [address] Patient Discharge Instructions Person Information Name: TAWNYA HERRING Age: 28 Years Arrival Date: 03/18/2024 08:06:19 Discharge Diagnosis: Subchorionic bleed; Threatened Primary Care Physician: DARWIN JONES CNP Provider Information Primary Provider: Tona Lake DO Advanced Vice President Industrial Relations:None The exam and treatment you received in the Emergency Department were for an urgent problem and are not intended as complete care. It is important that you follow up with a doctor, nurse practitioner, or physician?s assistant to the director for ongoing care. If your symptoms become worse or you do not improve as expected and you are unable to reach your usual health care provider, you should return to the Emergency Department. We are available 24 hours a day. MONAMIMI TAWNYA Romie has been given the following list of patient education materials, prescriptions and follow-up instructions: Follow-up Instructions: With: Address: When: Rogelio Fish [address], [place] [address] Business (1) In 3 days 03/21/2024 With: Address: When: DARWIN JONES [facility] [place] [phone] [place] (1) In 3 days In the event that this physician does not participate in your insurance network, please consult with your insurance company to find a nearby participating provider. Patient Education Materials: Threatened Miscarriage; Subchorionic Hematoma A MESSAGE TO ALL PATIENTS REGARDING OPIOIDS PRESCRIPTION OPIOIDS: WHAT YOU NEED TO KNOW Prescription opioids can be used to help relieve xncwxkcy-qr-bbavac pain and are often prescribed following a [...] (more content not included)... Normal [facility] HEMATOLOGYOrdered By: SYSTEM SYSTEM on 03-18-2024 [...] 24 Bilirubin Ql (U) Negative Normal Negative [facility] Comment on above: Performed By: #### 4 [id number] #### [facility] [address] [place] [address] Clarity (U) Clear Normal Clear [facility] Comment on above: Performed By: #### 4 [id number] #### [facility] [address] [place] [address] Color (U) Yellow Normal Yellow [facility] Comment on above: Result Comment: Micr oscopic readings are only performed on those samples that meet specific criteria set forth by [facility]. Performed By: #### 4 [id number] #### [facility] [address] [place] [address] Epithelial cells.squamous Auto (Urine sed) [#/Area] 0-2 Invalid Interpretation Code [facility] Comment on above: Performed By: #### 4 [id number] #### [facility] [address] [place] [address] Glucose Ql (U) Negative Normal Negative [facility] Comment on above: Performed By: #### 4 [id number] #### [facility] [address] [place] [address] Hemoglobin Auto test strip (U) [Mass/Vol] 3+ mg/dL Abnormal Negative [facility] Comment on above: Performed By: #### 4 [id number] #### [facility] [address] [place] [address] Ketones Auto test strip Ql (U) Negative Normal Negative [facility] Comment on above: Performed By: #### 4 [id number] #### [facility] [address] [place] [address] Leukocyte esterase Auto test strip Ql (U) 25 Chaparrita/uL Normal Negative [facility] Comment on above: Performed By: #### 4 [id number] #### [facility] [address] [place] [address] Mucus Auto Ql (U) Trace Normal Negative [facility] Comment on above: Performed By: #### 4 [id number] #### [facility] [address] [place] [address] Nitrite Auto test strip Ql (U) Negative Normal Negative [facility] Comment on above: Performed By: #### 4 [id number] #### [facility] [address] [place] [address] pH (U) 7.5 [pH] Invalid Interpretation Code 5.0-9.0 [facility] Comment on above: Performed By: #### 4 [id number] #### [facility] [address] [place] [address] Protein Ql (U) Trace Abnormal Negative [facility] Comment on above: Performed By: #### 4 [id number] #### [facility] [address] [place] [address] RBC Ql (U) 31-75 Abnormal 0-3 [facility] Comment on above: Performed By: #### 4 [id number] #### [facility] [address] [place] [address] Specific gravity (U) [Rel density] 1.023 Invalid Interpretation Code 1.005-1.03 0 [facility] Comment on above: Performed By: #### 4 [id number] #### [facility] [address] [place] [address] Urobilinogen (U) [Mass/Vol] Negative Normal Negative [facility] Comment on above: Performed By: #### 4 [id number] #### [facility] [address] [place] [address] WBC Auto (Urine sed) [#/Area] 0-5 Normal 0-5 [facility] Comment on above: Performed By: #### 4 [id number] #### [facility] [address] [place] [address] Type of Urine collection method Clean Catch Normal [facility] Comment on above: Performed By: #### 4 [id number] #### [facility] [address] [place], [place] [id number] URINALYSISOrdered By: SYSTEM SYSTEM on 03-18-2024 Bilirubin Ql (U) Negative Normal Negativemg /dL [facility] UA Auto SS Clarity (U) Clear (03/18/24 8:17 AM) Normal Clear [facility] UA Auto SS Color (U) Yellow 1 (03/18/24 8:17 AM) Normal Yellow [facility]A Auto SS Comment on above: Interpretive Data: M icroscopic readings are only performed on those samples that meet specific criteria set forth by [facility]. Epithelial cells.squamous Auto (Urine sed) [#/Area] 0-2 graded/HPF Invalid Interpretation Code [facility] UA Auto SS Glucose Ql (U) Negative Normal Negativemg /dL [facility] UA Auto SS Hemoglobin Auto test strip (U) [Mass/Vol] 3+ mg/dL Invalid Interpretation Code Negativemg /dL [facility] UA Auto SS Ketones Auto test strip Ql (U) Negative Normal Negativemg /dL [facility] UA Auto SS Leukocyte esterase Auto test strip Ql (U) 25 Chaparrita/uL Chaparrita/uL Normal NegativeLe u/uL [facility] UA Auto SS Mucus Auto Ql (U) Trace graded/LPF Normal Negati vegr aded/LPF [facility] UA Auto SS Nitrite Auto test strip Ql (U) Negative Normal Negativemg /dL [facility] UA Auto SS pH (U) 7.5 *NA* (03/18/24 8:17 AM) Invalid Interpretation Code 5.0 - 9.0 [facility] UA Auto SS Protein Ql (U) Trace mg/dL Invalid Interpretation Code Negativemg /dL [facility] UA Auto SS RBC Ql (U) 31-75 graded/HPF Invalid Interpretation Code 0-3graded/ HPF [facility] UA Auto SS Specific gravity (U) [Rel density] 1.023 *NA* (03/18/24 8:17 AM) Invalid Interpretation Code 1.005 - 1.030 [facility] UA Auto SS Urobilinogen (U) [Mass/Vol] Negative Normal Negativemg /dL [facility] UA Auto SS WBC Auto (Urine sed) [#/Area] 0-5 graded/HPF Normal 0-5graded/ HPF [facility] UA Auto SS URINALYSISOrdered By: Hector quiroga on 03-18-2024 UA Spec Desc Clean Catch (03/18/24 8:17 AM) Normal [facility] UA Auto SS US 1st Trimesteron 03-18-2024 [...] intrauterine , with heart rate 125 bpm. [place]-rump length 3.22 mm. Mean sac diameter 1.74 [...] Performed Transvaginal Ultrasound Performed Normal [facility] US Transvaginalon 03-18-2024 US Transvaginal Exam Date/Time: 03/18/2024 11:41 EDT Reason for Exam: Vaginal bleeding Report Please review ultrasound pelvis for ultrasound transvaginal report. Ordering Provider: Hector Correa FINAL REPORT Dictated: 03/18/2024 12:06 pm Luis Alfredo Bunch MD Signed (Electronic Signature): 03/18/2024 12:06 pm Signed by: Luis Alfredo Bunch MD Transcribed by: EDWIN Technologist: MARCOS Normal [facility] eGFRon 03-18-2024 eGFR 131 mL/min/1.73 m2 Normal >=59 [facility] Comment on above: Order Comment: Order added by Discern Expert. Performed By: #### 1 [id number] #### [facility] [address] [place] [address] Progesteroneon 02-24-2024 Progesterone 9.9 ng/mL Normal . [facility] Comment on above: Result Comment: Foll icular phase 0.1 - 0.9 Luteal phase 1.8 - 23.9 Ovulation phase 0.1 - 12.0 First trimester 11.0 - 44.3 Second trimester 25.4 - 83.3 Third trimester 58.7 - 214.0 Postmenopausal 0.0 - 0.1 Performed at: [address] [id number] Suppository Molding Machine Operator: Alexis Ashton PhD, Phone: [phone] PERFORMED BY: [place] [address] [place] [address] PATHOLOGIST BLANKING PRESS OPERATOR JORDI SMITH M.D. Performed By: #### P ANTHONY ####[facility] , Serum or plasma progesterone measurement (mass/volume)Ordered By: Brain Way on 02-24-2024 Progesterone [Mass/Vol] 9.9 ng/mL . [facility] Comment on above: Follicular phase 0.1 - 0.9 Luteal phase 1.8 - 23.9 Ovulation phase 0.1 - 12.0 First trimester 11.0 - 44.3 Second trimester 25.4 - 83.3 Third trimester 58.7 - 214.0 Postmenopausal 0.0 - 0.1Performed at: [address] [id number] Director: Alexis Ashton PhD, Phone: [phone] Progesteroneon 01-24-2024 Progesterone 8.5 ng/mL Normal . [facility] Comment on above: Result Comment: Foll icular phase 0.1 - 0.9 Luteal phase 1.8 - 23.9 Ovulation phase 0.1 - 12.0 First trimester 11.0 - 44.3 Second trimester 25.4 - 83.3 Third trimester 58.7 - 214.0 Postmenopausal 0.0 - 0.1 Performed at: [address] [id number] Suppository Molding Machine Operator: Alexis Ashton PhD, Phone: [phone] PERFORMED BY: [place] [address] [place] [address] PATHOLOGIST BLANKING PRESS OPERATOR JORDI SMITH M.D. Performed By: #### P ANTHONY ####[facility] , Serum or plasma progesterone measurement (mass/volume)Ordered By: Brain Way on 01-24-2024 Progesterone [Mass/Vol] 8.5 ng/mL . [facility] Comment on above: Follicular phase 0.1 - 0.9 Luteal phase 1.8 - 23.9 Ovulation phase 0.1 - 12.0 First trimester 11.0 - 44.3 Second trimester 25.4 - 83.3 Third trimester 58.7 - 214.0 Postmenopausal 0.0 - 0.1Performed at: [facility] LtdEnglewood [facility] Medical CenterPlfeih[address] [place] [id number] Director: Alexis Ashton PhD, Phone: [phone] Progesteroneon 12-27-2023 Progesterone 13.3 ng/mL Normal . [facility] Comment on above: Result Comment: Foll icular phase 0.1 - 0.9 Luteal phase 1.8 - 23.9 Ovulation phase 0.1 - 12.0 First trimester 11.0 - 44.3 Second trimester 25.4 - 83.3 Third trimester 58.7 - 214.0 Postmenopausal 0.0 - 0.1 Performed at: [address] [id number] Suppository Molding Machine Operator: Alexis Ashton PhD, Phone: [phone] PERFORMED BY: [facility] [place] [address] PATHOLOGIST BLANKING PRESS OPERATOR JORDI SMITH M.D. Performed By: #### P ANTHONY ####[facility] , Serum or plasma progesterone measurement (mass/volume)Ordered By: Brain Way on 12-27-2023 Progesterone [Mass/Vol] 13.3 ng/mL . [facility] Comment on above: Follicular phase 0.1 - 0.9 Luteal phase 1.8 - 23.9 Ovulation phase 0.1 - 12.0 First trimester 11.0 - 44.3 Second trimester 25.4 - 83.3 Third trimester 58.7 - 214.0 Postmenopausal 0.0 - 0.1Performed at: [facility] [id number] Director: Alexis Ashton PhD, Phone: [phone] Progesteroneon 11-30-2023 Progesterone 16.9 ng/mL Normal . [facility] Comment on above: Result Comment: Foll icular phase 0.1 - 0.9 Luteal phase 1.8 - 23.9 Ovulation phase 0.1 - 12.0 First trimester 11.0 - 44.3 Second trimester 25.4 - 83.3 Third trimester 58.7 - 214.0 Postmenopausal 0.0 - 0.1 Performed at: [facility] [address] [place], [place] [id number] Suppository Molding Machine Operator: Alexis Ashton PhD, Phone: [phone] PERFORMED BY: [facility] [place] [address] PATHOLOGIST BLANKING PRESS OPERATOR JORDI SMITH M.D. Performed By: #### P ANTHONY ####[facility] , Serum or plasma progesterone measurement (mass/volume)Ordered By: Brain Way on 11-30-2023 Progesterone [Mass/Vol] 16.9 ng/mL . [facility] Comment on above: Follicular phase 0.1 - 0.9 Luteal phase 1.8 - 23.9 Ovulation phase 0.1 - 12.0 First trimester 11.0 - 44.3 Second trimester 25.4 - 83.3 Third trimester 58.7 - 214.0 Postmenopausal 0.0 - 0.1Performed at: [facility] Medical CenterIxsbsn[address] [place] [id number] Director: Alexis Ashton PhD, Phone: [phone] ISABELOVmichelle 11-18-2023 [facility] Office Visit (ENDOMN ) -- TAWNYA HERRING ([id number]) 1995 F Date Time Provider Department 11/18/23 8:30 AM RUBY WHITTINGTON During your visit today, we recorded the following information about you: Pulse Blood pressure Weight Last Period 100/minute 132/92 110.7 kg 11/09/23 Odalis Greene 11/18/2023 7:58 AM Signed Thank you for choosing the [facility] Department of Endocrinology, Diabetes and Metabolism. Did you know that you need to call 48 hours in advance of your scheduled visit, if you are unable to make your appointment? The Endocrinology and Metabolism [place] thanks you for your commitment, because patients not showing to their appointment results in a lost opportunity for patients to receive [facility] health care at the [facility]. To Cancel an appointment, please choose one of the following: - Call the Appointment Call Center at [phone] - From [employer], Go to Appointments - Cancel Appts If cancelling, consider your need to reschedule to prevent further delays in your care. To Schedule an appointment, please choose one of the following: - Call the Appointment Call Center at [phone] - From [employer], Go to Appointments - Request an Appt [...] as of 11/18/2023 - cyanocobalamin/folic acid (VITAMIN T15-JLCJC ACID) 1,000-400 mcg lozg Take by mouth (more content not included)... Normal [facility] Progesteroneon 11-01-2023 Progesterone 7.1 ng/mL Normal . [facility] Comment on above: Result Comment: Foll icular phase 0.1 - 0.9 Luteal phase 1.8 - 23.9 Ovulation phase 0.1 - 12.0 First trimester 11.0 - 44.3 Second trimester 25.4 - 83.3 Third trimester 58.7 - 214.0 Postmenopausal 0.0 - 0.1 Performed at: [facility] [id number] Suppository Molding Machine Operator: Alexis Ashton PhD, Phone: [phone] PERFORMED BY: [facility] [place] [address] PATHOLOGIST BLANKING PRESS OPERATOR JORDI SMITH M.D. Performed By: #### P ANTHONY #### [facility] , Serum or plasma progesterone measurement (mass/volume)Ordered By: Brain Way on 11-01-2023 Progesterone [Mass/Vol] 7.1 ng/mL . [facility] Comment on above: Follicular phase 0.1 - 0.9 Luteal phase 1.8 - 23.9 Ovulation phase 0.1 - 12.0 First trimester 11.0 - 44.3 Second trimester 25.4 - 83.3 Third trimester 58.7 - 214.0 Postmenopausal 0.0 - 0.1Performed at: [facility] [id number] Director: Alexis Ashton PhD, Phone: [phone] Progesteroneon 10-01-2023 Progesterone 0.9 ng/mL Normal . [facility] Comment on above: Result Comment: Foll icular phase 0.1 - 0.9 Luteal phase 1.8 - 23.9 Ovulation phase 0.1 - 12.0 First trimester 11.0 - 44.3 Second trimester 25.4 - 83.3 Third trimester 58.7 - 214.0 Postmenopausal 0.0 - 0.1 Performed at: [facility] [address] [place] [id number] Suppository Molding Machine Operator: Alexis Ashton PhD, Phone: [phone] PERFORMED BY: [facility] [address] [place] [address] PATHOLOGIST BLANKING PRESS OPERATOR JORDI SMITH M.D. Performed By: #### P ANTHONY ####[facility] , Serum or plasma progesterone measurement (mass/volume)Ordered By: Brain Way on 10-01-2023 Progesterone [Mass/Vol] 0.9 ng/mL . [facility] Comment on above: Follicular phase 0.1 - 0.9 Luteal phase 1.8 - 23.9 Ovulation phase 0.1 - 12.0 First trimester 11.0 - 44.3 Second trimester 25.4 - 83.3 Third trimester 58.7 - 214.0 Postmenopausal 0.0 - 0.1Performed at: [facility] [address] [id number] Director: Alexis Ashton PhD, Phone: [phone] Ambulatory Visit Summaryon 0 09-29-2023 Ambulatory Visit Summary MONAMIMITAWNYA :1995 Visit Date:09/29/2023 Ambulatory Visit Instructions Your Diagnosis Sinusitis BMI 38.0-38.9,adult Your Care Team Attending Physician - Pranav BECKHAM, Tyrone Mujica Primary Care Physician - DARWIN JONES CNP [...] When: Where: [address] [place] [address]- Medications What How Much When Why Instructions New amoxicillin-clavulanate (Augmentin 875 mg oral tablet) 1 Tablets By Mouth Every 12 hours Sinusitis BMI 38.0-38.9,adult Duration: 10 Days Pickup at [facility] New methylPREDNISolone (Medrol Dosepack 4 mg Tab) 1 Packets By Mouth As Directed Sinusitis BMI 38.0-38.9,adult Duration: 6 Days as directed on package labeling Pickup at [facility] Unchanged citalopram (CeleXA 20 mg Tab) 1 Tablets By Mouth Every day Contact prescribing physician if questions or concerns Unchanged citalopram (citalopram 20 mg Tab) Contact prescribing physician if questions or concerns Unchanged pyridoxine (Vitamin B6 100 mg Tab) By Mouth Every day Contact prescribing physician if questions or concerns Pharmacy Information [facility]: [address] [place], [place] [id number] [phone] Allergies No Known Allergies No Known Medication [...] for choosing us for your care. Louie [facility] Family Medicine Office/Clini c Noteon 09-29-2023 [...] with voice recognition software. Occasional wrong-word or ?vkbil-o-xbyy? substitutions may have occurred due to the [...] with improvement. She does not use any dktn-cuh-ixbebjn Flonase and has not tried any other [...] day(s), # 20 tab(s), Refills(s) 0, Pharmacy: [facility], 170.2, cm, 09/29/23 10:44:00 EST, Height/Length Dosing, 112, kg, 09/29/23 10:44:00 EST, Weight Dosing methylPREDNISolone, = 1 packet(s), Oral, As Directed, as directed on package labeling, X 6 day(s), # 21 tab(s), Refills(s) 0, Pharmacy: [facility], 170.2, cm, 09/29/23 10:44:00 EST, Height/Length Dosing, 112, kg, 09/29/23 10:44:00 EST, Weight Dosing 2. BMI 38.0-38.9,adult (Z68.38: Body mass index [BMI] 38.0-38.9, adult) The standard range for ages 18 and olde (more content not included)... Normal [facility] Comment on above: Result Comment: Elec [...] ? Medicines that treat allergies (antihistamines). ? Mhhq-ytm-arvhxyh pain relievers. ? If caused by bacteria, [...] home: Medicines ? 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 ? Do not smoke. Avoid being around people who are smoking (secondhand smoke). ? Keep all follow-up visits. This is important. Contact a health care provider if: ? You have a fever. ? Your symptoms get (more content not included)... Normal [facility] TA[facility] ([id number]) 1995 F Date Time Provider Department 07/16/23 [facility] your visit today, we recorded the [...] Encounter Status:Closed by KENAN GOMEZ on 07/16/23 [facility] CNOVon 06-08-2023 CNOV Office Visit (OTOLLN ) -- TAWNYA HERRING ([id number]) 1995 F Date Time Provider Department 06/08/23 [...] will be in touch with results via [facility] HPI: Tawnya is a 27 year old [...] Allergies (more content not included)... Normal [facility] Alanine aminotransferase [En zymatic activity/volume] in Serum or PlasmaOrdered By: Addi Ortega on 04-08-2023 ALT [Catalytic activity/Vol] 28 U/L 7-52 [facility] Albumin [Mass/volume] in Ser um or Plasma by Bromocresol green (BCG) dye binding methoOrdered By: Addi Ortega on 04-08-2023 Albumin BCG dye [Mass/Vol] 4.8 g/dL 3.5-5.7 [facility] Alkaline phosphatase [Enzyma tic activity/volume] in Serum or PlasmaOrdered By: Addi Ortega on 04-08-2023 ALP [Catalytic activity/Vol] 61 U/L 34-104 [facility] Aspartate aminotransferase [ Enzymatic activity/volume] in Serum or PlasmaOrdered By: Addi Ortega on 04-08-2023 AST [Catalytic activity/Vol] 13 U/L 13-39 [facility] Basophils Auto (Bld) [#/Vol] Ordered By: Addi Ortgea on 04-08-2023 Basophils (Bld) [#/Vol] 0.0 10*3/uL 0.0-0.2 [facility] Basophils/100 WBC Auto (Bld) Ordered By: Addi Ortega on 04-08-2023 Basophils/100 WBC (Bld) 0.4 % . [facility] Bilirubin.total [Mass/volume ] in Serum or PlasmaOrdered By: Addi Ortega on 04-08-2023 Bilirubin [Mass/Vol] 0.4 mg/dL 0.3-1.0 [facility] Calcium [Mass/volume] in Ser um or PlasmaOrdered By: Addi Ortega on 04-08-2023 Calcium [Mass/Vol] 9.5 mg/dL 8.6-10.3 [facility] Carbon dioxide, total [Moles /volume] in Serum or PlasmaOrdered By: Addi Ortega on 04-08-2023 CO2 [Moles/Vol] 25.4 mmol/L 21.0-31.0 [facility] Chloride [Moles/volume] in S ghdaa or PlasmaOrdered By: Addi Ortega on 04-08-2023 Chloride [Moles/Vol] 106 mmol/L 98-107 [facility] Cholesterol [Mass/volume] in Serum or PlasmaOrdered By: Addi Ortega on 04-08-2023 Cholesterol [Mass/Vol] 162 mg/dL 140-200 [facility] Comment on above: Chol less than 200 m g/dl low riskChol 201-239 mg/dl borderline riskChol 240 mg/dl and greater high risk Cholesterol in LDL Calc [Mas s/Vol]Ordered By: Addi Ortega on 04-08-2023 Cholesterol in LDL [Mass/Vol] 99 mg/dL 0-100 [facility] Comment on above: LDL ATP III CLASSIFI CATIONLDL less than 100 mg/dL OptimalLDL 100-129 mg/dL Near or above optimalLDL 130-159 mg/dL Borderline highLDL 160-189 mg/dL HighLDL greater than 189 mg/dL Very high Cholesterol in VLDL Calc [Ma ss/Vol]Ordered By: Addi Ortega on 04-08-2023 Cholesterol in VLDL [Mass/Vol] 18 mg/dL [facility] Creatinine [Mass/volume] in Serum or PlasmaOrdered By: Addi Ortega on 04-08-2023 Creatinine [Mass/Vol] 0.59 mg/dL 0.60-1.20 [facility] Eosinophils Auto (Bld) [#/Vo l]Ordered By: Addi Ortega on 04-08-2023 Eosinophils (Bld) [#/Vol] 0.1 10*3/uL 0.0-0.45 [facility] Eosinophils/100 WBC Auto (Bl d)Ordered By: Addi Ortega on 04-08-2023 Eosinophils/100 WBC (Bld) 1.3 % . [facility] Erythrocyte distribution wid th Auto (RBC) [Ratio]Ordered By: Addi Ortega on 04-08-2023 Erythrocyte distribution width (RBC) [Ratio] 12.6 % 11.9-15.3 [facility] Globulin Calc (S) [Mass/Vol] Ordered By: Addi Ortega on 04-08-2023 Globulin (S) [Mass/Vol] 2.7 g/dL [facility] Glucose [Mass/volume] in Ser um or PlasmaOrdered By: Addi Ortega on 04-08-2023 Glucose [Mass/Vol] 83 mg/dL 70-100 [facility] Hematocrit Auto (Bld) [Volum e fraction]Ordered By: Addi Ortega on 04-08-2023 Hematocrit (Bld) [Volume fraction] 39.3 % 34.0-46.4 [facility] Hemoglobin [Mass/volume] in BloodOrdered By: Addi Ortega on 04-08-2023 Hemoglobin (Bld) [Mass/Vol] 13.6 g/dL 11.8-15.4 [facility] Leukocytes [#/volume] correc hamilton for nucleated erythrocytes in Blood by Automated counOrdered By: Addi Ortega on 04-08-2023 WBC corrected for nucl RBC Auto (Bld) [#/Vol] 7.6 10*3/uL 3.8-11.6 [facility] Lymphocytes Auto (Bld) [#/Vo l]Ordered By: Addi Ortega on 04-08-2023 Lymphocytes (Bld) [#/Vol] 2.9 10*3/uL 1.00-4.8 [facility] Lymphocytes/100 WBC Auto (Bl d)Ordered By: Addi Ortega on 04-08-2023 Lymphocytes/100 WBC (Bld) 38.6 % . [facility] MCH Auto (RBC) [Entitic mass ]Ordered By: Addi Ortega on 04-08-2023 MCH (RBC) [Entitic mass] 31.6 pg 24.7-34.3 [facility] MCHC Auto (RBC) [Mass/Vol]Or dered By: Addi Oretga on 04-08-2023 MCHC (RBC) [Mass/Vol] 34.5 g/dL 32.0-35.0 [facility] MCV Auto (RBC) [Entitic vol] Ordered By: Addi Ortega on 04-08-2023 MCV (RBC) [Entitic vol] 91.7 fL 80-100 [facility] Monocytes Auto (Bld) [#/Vol] Ordered By: Addi Ortega on 04-08-2023 Monocytes (Bld) [#/Vol] 0.4 10*3/uL 0.0-0.8 [facility] Monocytes/100 WBC Auto (Bld) Ordered By: Addi Ortega on 04-08-2023 Monocytes/100 WBC (Bld) 5.8 % . [facility] Neutrophils Auto (Bld) [#/Vo l]Ordered By: Addi Ortega on 04-08-2023 Neutrophils (Bld) [#/Vol] 4.1 10*3/uL 1.8-7.7 [facility] Neutrophils/100 WBC Auto (Bl d)Ordered By: Addi Ortega on 04-08-2023 Neutrophils/100 WBC (Bld) 53.9 % . [facility] No Panel InformationOrdered By: Addi Ortega on 04-08-2023 Estimated GFR (CKD-EPI) > 60.0 mL/Min [facility] Nicotine Metabolite Negative Cutoff=25 [facility] Comment on above: Performed at: [facility] [address] [id number] Director: Catherine Mendoza MD, Phone: [phone] Pharmacy Creatinine Clearance (Chem N/A [facility] Nucleated erythrocytes [Pres ence] in Blood by Automated countOrdered By: Addi Ortega on 04-08-2023 Nucleated RBC Auto Ql (Bld) 0.0 /100{WBC} 0-0.5 [facility] Platelet mean volume Auto (B ld) [Entitic vol]Ordered By: Addi Ortega on 04-08-2023 Platelet mean volume (Bld) [Entitic vol] 8.6 fL 6.3-10.7 [facility] Platelets Auto (Bld) [#/Vol] Ordered By: Addi Ortega on 04-08-2023 Platelets (Bld) [#/Vol] 361 10*3/uL 150-450 [facility] Potassium [Moles/volume] in Serum or PlasmaOrdered By: Addi Ortega on 04-08-2023 Potassium [Moles/Vol] 4.6 mmol/L 3.5-5.1 [facility] Protein [Mass/volume] in Ser um or PlasmaOrdered By: Addi Ortega on 04-08-2023 Protein [Mass/Vol] 7.5 g/dL 6.4-8.9 [facility] RBC Auto (Bld) [#/Vol]Ordere d By: Addi Ortega on 04-08-2023 RBC (Bld) [#/Vol] 4.29 10*6/uL 3.60-5.00 [facility] Serum or plasma albumin/glob ulin mass ratioOrdered By: Addi Ortega on 04-08-2023 Albumin/Globulin [Mass ratio] 1.8 {ratio} [facility] Serum or plasma anion gap de terminationOrdered By: Addi Ortega on 04-08-2023 Anion gap [Moles/Vol] 12.2 mmol/L 6.0-15.0 [facility] Serum or plasma high density lipoprotein (HDL) cholesterol measurementOrdered By: Addi Ortega on 04-08-2023 Cholesterol in HDL [Mass/Vol] 45 mg/dL 23-92 [facility] Comment on above: HDL CHOL ATP-III CLA SSIFICATION Cardiovascular RiskHDL > or equal to 60 mg/dL LOWHDL < 40 mg/dL HIGH Serum or plasma total choles terol/high density lipoprotein (HDL) cholesterol mass ratOrdered By: Addi Ortega on 04-08-2023 Cholesterol.total/Cho lesterol in HDL [Mass ratio] 3.6 {ratio} <5.0 [facility] Sodium [Moles/volume] in Ser um or PlasmaOrdered By: Addi Ortega on 04-08-2023 Sodium [Moles/Vol] 139 mmol/L 136-145 [facility] Thyrotropin [Units/volume] i n Serum or PlasmaOrdered By: Addi Ortega on 04-08-2023 TSH Qn 4.55 m[IU]/L 0.45-5.33 [facility] Triglyceride [Mass/volume] i n Serum or PlasmaOrdered By: Addi Ortega on 04-08-2023 Triglyceride [Mass/Vol] 92 mg/dL 0-149 [facility] Comment on above: TRIG ATP III CLASSIF ICATIONTRIG less than 150 mg/dL NormalTRIG 150-199 mg/dL Borderline highTRIG 200-500 mg/dL High TRIG greater than 500 mg/dL Very highStandard traceable to the Center for Disease Conrtrol and Prevention (CDC) test method. Urea nitrogen [Mass/volume] in Serum or PlasmaOrdered By: Addi Ortega on 04-08-2023 Urea nitrogen [Mass/Vol] 18 mg/dL 7-25 [facility] WBC Auto (Bld) [#/Vol]Ordere d By: Addi Ortega on 04-08-2023 WBC (Bld) [#/Vol] 7.6 10*3/uL 3.8-11.6 [facility] C Urineon 03-24-2023 Bacteria identified Cx Nom (U) Microbiology PROCEDURE: Urine Culture [R1] SOURCE: U CleanCatch BODY SITE: COLLECTED DATE/TIME: 03/22/2023 20:17 EDT RECEIVED DATE/TIME: 03/22/2023 20:53 EDT START DATE/TIME: 03/22/2023 20:53 EDT FREE TEXT SOURCE: Gabriel Curtsi DO, DO, Kaylinn A FINAL REPORTS Final Report [] Verified Date/Time: 03/24/2023 08:20 EDT 5,000 cfu/ml Mixed skin contaminants Performing Locations R1: This test was performed at: [facility], [address] [place] [address], [address] , [place], Normal [facility] Comment on above: Performed By: #### 2 776972, 4547547, 33276665, 0523421, 2128204, 4057327 #### [facility] [address] [place] [address] Abdomen/Pelvis w/o Contra ston 03-23-2023 CT [...] amount in ml's: 0 Normal [facility] Discharge Instructionson Discharge Instructions [id number]:127 Normal [facility] ED Note-Physicianon 03-23-20 ED Note-Physician Basic [...] any medications. States that she was at [facility], where she did wait about 5 [...] and Complexity of Problems Differential Diagnosis: [] [facility] Data External documents reviewed: [] [...] day(s), # 28 cap(s), Refills(s) 0, Pharmacy: [facility], 170.2, cm, 03/22/23 20:14:00 EDT, Height/Length Dosing, 113.5, kg, 03/22/23 20:14:00 EDT, Weight Dosing ketorolac, 30 mg = 1 mL, Injection, IV Push, Once, Stop date 03/22/23 20:51:00 EDT, STAT, Start date 03/22/23 20:51:00 EDT, 03/22/23 20:51:00 EDT ondansetron, 4 mg = 2 mL, Injection, IV Push, Once, Stop date 03/22 (more content not included)... Normal [facility] Comment on above: Result Comment: Elec tronically Signed By: Hector Correa PA-C\.br\Date and Time Signed: 03/22/23 23:35 EDT\.br\Electronically Co-Signed By: Gabriel Curtis DO.br\Date and Time Co-Signed: 03/23/23 03:21 EDT RAD - Preliminary Cat Scan R eporton 03-23-2023 RAD - Preliminary Cat Scan Report [id number]:127 Normal [facility] Auto Diffon 03-22-2023 Basophils/100 WBC (Bld) 0.5 % Normal 0.0-2.0 [facility] Comment on above: Order Comment: Order Added by Discern Expert. Performed By: #### 2 324822, 9572456, 28244111, 5357057, 8837659, 8285609 #### [facility] [address] [place] [address] Basophils/Leukocytes Auto (Bld) [Pure # fraction] 0.0 E9/L Normal 0.0-0.2 [facility] Comment on above: Order Comment: Order Added by Discern Expert. Performed By: #### 2 625019, 1638414, 65503554, 4484867, 0555558, 4343527 #### [facility] [address] [place] [address] Eosinophils/100 WBC (Bld) 1.5 % Normal 0.0-8.0 [facility] Comment on above: Order Comment: Order Added by Discern Expert. Performed By: #### 2 702867, 4951110, 80102688, 4843212, 2983409, 5822422 #### [facility] [address] [place] [address] Eosinophils/Leukocyte s Auto (Bld) [Pure # fraction] 0.1 E9/L Normal 0.0-0.5 [facility] Comment on above: Order Comment: Order Added by Discern Expert. Performed By: #### 2 035015, 3691364, 09925265, 3489686, 3034236, 9896763 #### [facility] [address] [place] [address] Lymphocytes/100 WBC (Bld) 34.9 % Normal 14.0-50.0 [facility] Comment on above: Order Comment: Order Added by Discern Expert. Performed By: #### 2 869610, 3154044, 84049965, 7876481, 8273929, 0506260 #### [facility] [address] [place] [address] Lymphocytes/Leukocyte s Auto (Bld) [Pure # fraction] 3.4 E9/L Normal 1.0-4.0 [facility] Comment on above: Order Comment: Order Added by Discern Expert. Performed By: #### 2 569720, 5293062, 79336413, 8342388, 4685701, 4622460 #### [facility] [address] [place] [address] Monocytes/100 WBC (Bld) 6.0 % Normal 4.0-14.0 [facility] Comment on above: Order Comment: Order Added by Discern Expert. Performed By: #### 2 879990, 0158950, 15272270, 0381573, 0585330, 7388510 #### [facility] [address] [place] [address] Monocytes/Leukocytes Auto (Bld) [Pure # fraction] 0.6 E9/L Normal 0.2-1.0 [facility] Comment on above: Order Comment: Order Added by Discern Expert. Performed By: #### 2 368333, 9595511, 63065750, 0312100, 2134957, 9560160 #### [facility] [address] [place] [address] Neutrophils/100 WBC (Bld) 57.1 % Normal 36.0-75.0 [facility] Comment on above: Order Comment: Order Added by Discern Expert. Performed By: #### 2 497481, 5656736, 87585029, 9420785, 1215187, 6757591 #### [facility] [address] [place] [address] Neutrophils/Leukocyte s Auto (Bld) [Pure # fraction] 5.6 E9/L Normal 2.0-7.5 [facility] Comment on above: Order Comment: Order Added by Discern Expert. Performed By: #### 2 468588, 6200166, 68207865, 2101762, 8478814, 7524379 #### [facility] [address] [place] [address] BMPon 03-22-2023 Creatinine [Mass/Vol] 0.5 mg/dL Normal 0.5-1.3 [facility] Comment on above: Performed By: #### 2 308127, 1764225, 87101957, 4998434, 1200946, 6863281 #### [facility] [address] [place] [address] Urea nitrogen [Mass/Vol] 15 mg/dL Normal 5-21 [facility] Comment on above: Performed By: #### 2 846637, 1605004, 86030357, 4275870, 5244539, 5335623 #### [facility] [address] [place] [address] Urea nitrogen/Creatinine [Mass ratio] 30 No Units High 10-20 [facility] Comment on above: Performed By: #### 2 172605, 4408484, 84917834, 5030149, 4860810, 3534500 #### [facility] [address] [place] [address] Anion gap [Moles/Vol] 15 mmol/L Normal 6-16 [facility] Comment on above: Performed By: #### 2 490110, 1489940, 92080149, 7038898, 1352258, 6961160 #### [facility] [address] [place] [address] Calcium [Mass/Vol] 9.6 mg/dL Normal 8.9-11.1 [facility] Comment on above: Performed By: #### 2 623978, 1098098, 20364443, 5440992, 0943745, 6254706 #### [facility] [address] [place] [address] Chloride [Moles/Vol] 103 mmol/L Normal 101-111 [facility] Comment on above: Performed By: #### 2 909289, 1276631, 04576210, 8489321, 1663874, 0393870 #### [facility] [address] [place] [address] CO2 [Moles/Vol] 23 mmol/L Normal 21-31 [facility] Comment on above: Performed By: #### 2 182432, 4969892, 33979214, 0172424, 6021366, 6605375 #### [facility] [address] [place] [address] Glucose [Mass/Vol] 84 mg/dL Normal 55-199 [facility] Comment on above: Result Comment: If t his glucose result represents a fasting glucose, interpretation should refer to the following reference range: 55-99 mg/dL Performed By: #### 2 734991, 2254998, 18197189, 6299770, 0103382, 8741484 #### [facility] [address] [place] [address] Potassium [Moles/Vol] 3.7 mmol/L Normal 3.5-5.3 [facility] Comment on above: Performed By: #### 2 528537, 8477525, 55897653, 2028203, 4210279, 0309812 #### [facility] [address] [place] [address] Sodium [Moles/Vol] 137 mmol/L Normal 135-145 [facility] Comment on above: Performed By: #### 2 272274, 2109207, 37404503, 3178097, 8223579, 8190880 #### [facility] [address] [place] [address] CBC w/ Auto Diffon 3 Erythrocyte distribution width (RBC) [Ratio] 12.5 % Normal 10.9-14.2 [facility] Comment on above: Performed By: #### 2 941950, 3864664, 15402765, 6968161, 3176233, 0210663 #### [facility] [address] [place] [address] Hematocrit (Bld) [Volume fraction] 37.7 % Normal 34.0-46.0 [facility] Comment on above: Performed By: #### 2 020637, 5733881, 32688303, 7196318, 3179592, 5525444 #### [facility] [address] [place] [address] Hemoglobin (Bld) [Mass/Vol] 13.1 g/dL Normal 12.0-16.0 [facility] Comment on above: Performed By: #### 2 199012, 6498143, 44794783, 4683798, 4635320, 8987201 #### [facility] [address] [place] [address] MCH (RBC) [Entitic mass] 31.9 pg Normal 27.0-34.0 [facility] Comment on above: Performed By: #### 2 583407, 6296095, 96971114, 3281699, 4420595, 4148982 #### [facility] [address] [place] [address] MCHC (RBC) [Mass/Vol] 34.8 g/dL Normal 31.4-36.0 [facility] Comment on above: Performed By: #### 2 311188, 5750677, 69114644, 0213386, 2826760, 9060305 #### [facility] [address] [place] [address] MCV (RBC) [Entitic vol] 91.6 fL Normal 80.0-100.0 [facility] Comment on above: Performed By: #### 2 088459, 8532303, 33454324, 7016309, 5991284, 5949485 #### [facility] [address] [place] [address] Platelet mean volume (Bld) [Entitic vol] 7.6 fL Normal 6.4-10.8 [facility] Comment on above: Performed By: #### 2 773361, 7637244, 48497834, 6902272, 6559561, 0844933 #### [facility] [address] [place] [address] Platelets (Bld) [#/Vol] 306.0 E9/L Normal 150.0-500. 0 [facility] Comment on above: Performed By: #### 2 046151, 3446093, 61401903, 5416113, 5937511, 1300548 #### [facility] [address] [place] [address] RBC (Bld) [#/Vol] 4.1 E12/L Low 4.3-5.9 [facility] Comment on above: Performed By: #### 2 736045, 6999520, 94126581, 1229698, 9758229, 9066214 #### [facility] [address] [place] [address] WBC corrected for nucl RBC Auto (Bld) [#/Vol] 9.8 E9/L Normal 4.0-11.0 [facility] Comment on above: Performed By: #### 2 477242, 0711205, 87388682, 5266826, 4423180, 2445892 #### [facility] [address] [place] [address] CHEMISTRYOrdered By: SYSTEM SYSTEM on 03-22-2023 Albumin [...] 28 U/L Normal 13 - 58 unit/L [facility] Potassium [Moles/Vol] 3.7 mmol/L Normal 3.5 - 5.3 mmol/L [facility] Protein [Mass/Vol] 7.3 g/dL Normal 6.0 - 7.8 gm/dL [facility] Sodium [Moles/Vol] 137 mmol/L Normal 135 - 145 mmol/L [facility] Urea nitrogen [Mass/Vol] 15 mg/dL Normal 5 - 21 mg/dL [facility] Urea nitrogen/Creatinine [Mass ratio] 30 mg/mg High 10 - 20 [facility] Consent for Treatmenton 08 Consent for Treatment [id number]:127 Normal [facility] ED Clinical Summaryon 2022 ED Clinical Summary (Inserted Image. Hayley ble to display) [address] [address] ED Clinical Summary Person Information Name: TAWNYA HERRING [facility] Age: 27 Years : 1995 Sex: Female Language: Mauritanian PCP: DARWIN JONES CNP Marital Status: Single Phone: [phone] Visit Id: Visit Reason: Dysuria; Nausea; Flank [...] 03/22/2023 22:52:44 03/22/2023 22:52:44 03/22/2023 22:52:44 ADDRESS: [address] [place] [id number] PHYS DOC NOTES: MEDICAL INFORMATION: Prescriptions Given: New Medications [facility], [address] [id number], [phone] cephalexin (Keflex 500 mg Cap) 1 Capsules By Mouth every 6 hours for 7 Days. Refills: 0. Medications to Continue with No Changes Other Medications acetaminophen-hydrocodone (Sheridan 325 mg-5 mg oral tablet) 2 Tablets [...] EDUCATION INFORMATION: Instructions: Urinary Tract Infection, Adult, Ctto-yw-Arwu Follow up: With: Address: When: DARWIN LARACHANCELLOR [address] [facility] [place] [phone] Business (1) In 3 days 03/25/2023 Comments: Follow-up with your primary care provider in 3 to 5 days. If symptoms worsen, do not improve, or new symptoms arise please report back to emergency department for further evaluation. DIAGNOSIS: UTI (urinary tract infection) Normal [facility] ED Patient Education Noteon 03-22-2023 ED [...] these instructions at home: Medicines ? Take trwn-esy-ufxlqgo and prescription medicines only as told by [...] provider. Document Revised: 03/14/2021 Document Reviewed: 03/14/2021 [employer] Patient Education ? 2022 [employer] Normal [facility] ED Patient Summaryon 023 ED Patient Summary (Inserted Image. Hayley ble to display) [place] [id number] Patient Discharge Instructions Person Information Name: TAWNYA HERRING Age: 27 Years Arrival Date: 03/22/2023 19:52:37 Discharge Diagnosis: UTI (urinary tract infection) Primary Care Physician: DARWIN JONES CNP Provider Information Primary Provider: Gabriel Curtis DO Advanced Vice President Industrial Relations:None The exam and treatment you received in the Emergency Department were for an urgent problem and are not intended as complete care. It is important that you follow up with a doctor, nurse practitioner, or physician?s assistant to the director for ongoing care. If your symptoms become worse or you do not improve as expected and you are unable to reach your usual health care provider, you should return to the Emergency Department. We are available 24 hours a day. TAWNYA HERRING has been given the following list of patient education materials, prescriptions and follow-up instructions: Follow-up Instructions: With: Address: When: DARWIN JONES [facility] [facility] [place] [phone] Business (1) In 3 days 03/25/2023 Comments: [...] Patient Education Materials: Urinary Tract Infection, Adult, Ohth-cw-Daud A MESSAGE TO ALL PATIENTS REGARDING OPIOIDS PRESCRIPTION OPIOIDS: WHAT YOU NEED TO KNOW Prescription opioids can be used to help relieve rqqgevdz-ck-pnvzqt pain and are often prescribed following a [...] (more content not included)... Normal [facility] HEMATOLOGYOrdered By: SYSTEM SYSTEM on 03-22-2023 [...] [Mass/Vol] 4.2 g/dL Normal 3.3-5.0 [facility] Comment on above: Performed By: #### 2 541016, 9389524, 92059325, 4154300, 9332874, 5168470 #### [facility] [address] [place] [address] Albumin/Globulin (S) [Mass conc ratio] 1.4 Normal 1.1-2.2 [facility] Comment on above: Performed By: #### 2 533854, 8879375, 82384889, 1812955, 6601677, 4798036 #### [facility] [address] [place] [address] ALP [Catalytic activity/Vol] 54 Int._Unit/L Normal 21-98 [facility] Comment on above: Performed By: #### 2 976843, 9380087, 07848953, 9827099, 3642321, 6486440 #### [facility] [address] [place] [address] ALT No additional P-5'-P [Catalytic activity/Vol] 24 Int._Unit/L Normal 6-46 [facility] Comment on above: Performed By: #### 2 513821, 2491801, 86763405, 1380164, 3783281, 3334645 #### [facility] [address] [place] [address] AST [Catalytic activity/Vol] 18 Int._Unit/L Normal 5-43 [facility] Comment on above: Performed By: #### 2 989308, 8368023, 50361863, 2058358, 6515984, 9809191 #### [facility] [address] [place] [address] Bilirubin [Mass/Vol] 0.7 mg/dL Normal 0.0-1.1 [facility] Comment on above: Performed By: #### 2 110143, 3939484, 08298307, 3714227, 6625361, 4016399 #### [facility] [address] [place] [address] Bilirubin.direct [Mass/Vol] 0.1 mg/dL Normal 0.1-0.4 [facility] Comment on above: Performed By: #### 2 327046, 1311536, 32199446, 5497632, 3505168, 2921203 #### [facility] [address] [place] [address] Bilirubin.indirect [Mass or moles/Vol] 0.6 mg/dL Normal 0.1-0.9 [facility] Comment on above: Performed By: #### 2 826190, 0521709, 96030860, 7842051, 0935293, 6265989 #### [facility] [address] [place] [address] Globulin (S) [Mass/Vol] 3.1 g/dL Normal 1.4-4.0 [facility] Comment on above: Performed By: #### 2 257889, 3680347, 83344137, 1845010, 2746085, 5030123 #### [facility] [address] [place] [address] Protein [Mass/Vol] 7.3 g/dL Normal 6.0-7.8 [facility] Comment on above: Performed By: #### 2 531039, 5193499, 40974499, 3936864, 2475221, 8484893 #### [facility] [address] [place] [address] Lipase Levelon 03-22-2023 Lipase [Catalytic activity/Vol] 28 U/L Normal 13-58 [facility] Comment on above: Performed By: #### 2 008408, 0545266, 47381953, 9957033, 8550146, 3856481 #### [facility] [address] [place] [address] SEROLOGYOrdered By: Lucina Shaikh on 03-22-2023 HCG.beta subunit (U) [Moles/Vol] Negative Normal [facility] Man Sero U BetaHcg Qualon 03-22-2023 HCG.beta subunit (U) [Moles/Vol] Negative Normal [facility] Comment on above: Performed By: #### 2 965123, 8488402, 37837099, 6074902, 5245957, 2481950 #### [facility] [address] [place] [address] UA With Cult Reflexon 2022 Bacteria LM Ql (Urine sed) TRACE Normal Trace [facility] Comment on above: Performed By: #### 2 900660, 8769904, 12202748, 4156654, 7421572, 4040005 #### [facility] [address] [place] [address] Bilirubin Ql (U) Negative Normal Negative [facility] Comment on above: Performed By: #### 2 960867, 8619203, 25305632, 0258558, 4832563, 2068767 #### [facility] [address] [place] [address] Clarity (U) SL CLOUDY Abnormal Clear [facility] Comment on above: Performed By: #### 2 486644, 8094659, 60837552, 9666945, 8178024, 9571832 #### [facility] [address] [place] [address] Color (U) YELLOW Normal Yellow [facility] Comment on above: Performed By: #### 2 063075, 4147239, 73592650, 1375905, 8136777, [id number] #### [facility] [address] [place] [address] Crystals LM Ql (Urine sed) Present Normal [facility] Comment on above: Performed By: #### 2 [id number], [id number], [id number], 8451447, 5638540, 6374123 #### [facility] [address] [place] [address] Epithelial cells.squamous LM.HPF (Urine sed) [#/Area] 0-2 Normal 0-2 [facility] Comment on above: Performed By: #### 2 168189, 4393437, [id number], 2700720, 9238731, 6621118 #### [facility] [address] [place] [address] Glucose Test strip (U) [Mass/Vol] Negative Normal Negative [facility] Comment on above: Performed By: #### 2 763501, 8783974, 08907883, 6336242, 5575798, 7936325 #### [facility] [address] [place] [address] Hemoglobin Ql (U) 2+ Abnormal Negative [facility] Comment on above: Performed By: #### 2 342724, 6509217, 16695063, 3708654, 0227772, 7914070 #### [facility] [address] [place] [address] Ketones (U) [Mass/Vol] 1+ Abnormal Negative [facility] Comment on above: Performed By: #### 2 114100, 4453682, 66503819, 9066720, 5069643, 2343065 #### [facility] [address] [place] [address] [place]onah.plasma/Lithiu m.RBC (Bld) [Mass ratio] 0-3 Normal 0-3 [facility] Comment on above: Performed By: #### 2 417237, 7679567, 03942604, 1397103, 9596131, 6260834 #### [facility] [address] [place] [address] Mucus Ql (Urine sed) TRACE Normal [facility] Comment on above: Performed By: #### 2 784237, 9105995, 14520488, 9523736, 1152964, 5007370 #### [facility] [address] [place] [address] Nitrite Ql (U) Negative Normal Negative [facility] Comment on above: Performed By: #### 2 414023, 6780508, 49868839, 8946882, 8057676, 5350258 #### [facility] [address] [place] [address] pH (U) 5.5 [pH] Invalid Interpretation Code 5.0-9.0 [facility] Comment on above: Performed By: #### 2 166616, 4070889, 65590254, 2048482, 3039534, 4073298 #### [facility] [address] [place] [address] Protein (U) [Mass/Vol] Negative Normal Negative [facility] Comment on above: Performed By: #### 2 021199, 3261936, 26520529, 9820183, 9988454, 6819387 #### [facility] [address] [place] [address] Specific gravity (U) [Rel density] >=1.030 Invalid Interpretation Code 1.005-1.03 0 [facility] Comment on above: Performed By: #### 2 469449, 7369587, 04194062, 0082831, 3186326, 7810976 #### [facility] [address] [place] [address] Type of Urine collection method Clean Catch Normal [facility] Comment on above: Performed By: #### 2 002069, 0898831, 37091195, 4862546, 7393230, 6897798 #### [facility] [address] [place] [address] Urobilinogen Qn (U) 0.2 {Aly'U}/dL Normal 0.0-1.0 [facility] Comment on above: Performed By: #### 2 866853, 5575186, 40967886, 7741790, 1503778, 9683147 #### [facility] [address] [place] [address] WBC Auto Ql (U) 2+ Abnormal Negative [facility] Comment on above: Performed By: #### 2 623284, 1071179, 43544052, 1418881, 6664728, 8846678 #### [facility] [address] [place] [address] WBC LM.HPF (Urine sed) [#/Area] 16-25 Abnormal 0-5 [facility] Comment on above: Performed By: #### 2 057599, 8092433, 19636489, 5143926, 0887018, 5758445 #### [facility] [address] [place] [address] URINALYSISOrdered By: Elizabeth Shaikh on 03-22-2023 Bacteria [...] Interpretation Code Negative [facility] UA Auto SS [place].plasma/Lithiu m.RBC (Bld) [Mass ratio] 0-3 /HPF Normal [...] Desc Clean Catch (03/22/23 8:17 PM) Normal [facility] UA Auto SS Urobilinogen Qn (U) 0.1143070 {Aly'U}/dL Normal 0.0 - 1.0 EU/dL [facility] UA Auto SS WBC Auto Ql (U) 2+ *ABN* (03/22/23 8:17 PM) Invalid Interpretation Code Negative [facility] UA Auto SS WBC LM.HPF (Urine sed) [#/Area] 16-25 /HPF Invalid Interpretation Code 0-5/HPF [facility] UA Auto SS eGFRon 03-22-2023 GFR/1.73 sq M.predicted among non-blacks MDRD (S/P/Bld) [Vol rate/Area] 133 mL/min/1.73 m2 Normal >=59 [facility] Comment on above: Order Comment: Order added by Discern Expert. Result Comment: Guest Advisor vinh kidney disease could be indicated at eGFR's of less than 60 mL/min/1.73m2. Kidney failure is indicated at less than 15 mL/min/1.73m2. Performed By: #### 2 607793, 0240942, 60923836, 9868035, 2202704, 4480729 #### [facility] [address] [place] [address] Alanine aminotransferase [En zymatic activity/volume] in Serum or PlasmaOrdered By: Zurdo Ortega on 02-28-2023 ALT [Catalytic activity/Vol] 21 U/L 7-52 [facility] HIV 1 and HIV-2 antibody ass ay with HIV-1 p24 antigen detectionOrdered By: Zurdo Ortega on 02-28-2023 HIV 1+2 Ab+HIV1 p24 Ag IA Ql Non-Reactive Non Reactive [facility] Comment on above: HIV NegativeHIV-1/HI V-2 antibodies and HIV-1 p24 antigen were NOTdetected. There is no laboratory evidence of HIV infection. Hepatitis B virus surface Ag [Presence] in Serum or Plasma by ImmunoassayOrdered By: Zurdo Ortega on 02-28-2023 HBV surface Ag IA Ql Negative Negative [facility] Comment on above: Performed at: [address] [id number] Director: Alexis Ashton PhD, Phone: [phone] Hepatitis C virus IgG Ab [Pr esence] in Serum or Plasma by ImmunoassayOrdered By: Zurdo Ortega on 02-28-2023 HCV IgG IA Ql Non-Reactive Non Reactive [facility] No Panel InformationOrdered By: Zurdo Ortega on 02-28-2023 Hepatitis C Interpretation See comment . [facility] Comment on above: Not infected with HC V unless early or acute infection issuspected (which may be delayed in an immunocompromisedindividual), or other evidence exists to indicate HCVinfection. Serum hepatitis B virus surf nikolas antibody detectionOrdered By: Zurdo Ortega on 02-28-2023 HBV surface Ab Ql (S) Reactive . [facility] Comment on above: Non Reactive: Incons istent with immunity, less than 10 mIU/mL Reactive: Consistent with immunity, greater than 9.9 mIU/mL PAP ACOG PANEL 2: 21 to 29on 12-17-2022 . . Normal [facility] Comment on above: Performed By: #### 4 [id number] #### [facility] [address] [address] [address] Regine Fortune Age Gdln ACOG Testing - [facility] Comment on above: Performed By: #### 4 [id number] #### [facility] [address] [address] [address] Regine Fortune DIAGNOSIS: Comment [facility] Comment on above: Result Comment: NEGA TIVE FOR INTRAEPITHELIAL LESION OR MALIGNANCY. Performed By: #### 4 [id number] #### [facility] [address] [address] [address] Regine Fortune Methodology: Comment [facility] Comment on above: Result Comment: This liquid based ThinPrep(R) pap test was screened with the use of an image guided system. Performed By: #### 4 [id number] #### [facility] [address] [address] [address] Regine Fortune Note: Comment [facility] Comment on above: Result Comment: The Pap smear is a screening test designed to aid in the detection of premalignant and malignant conditions of the uterine cervix. It is not a diagnostic procedure and should not be used as the sole means of detecting cervical cancer. Both false-positive and false-negative reports do occur. . Performed By: #### 4 [id number] #### [facility] [address] [place] [address] Dr. Regine Fortune Performed by: Comment Normal [facility] Comment on above: Result Comment: [facility] Director (ASCP) Performed By: #### 4 [id number] #### [facility] [address] [place] [address] Dr. Regine Fortune Reflex Criteria: Comment Normal [facility] Comment on above: Result Comment: The HPV DNA reflex criteria were not met with this specimen result therefore, no HPV testing was performed. . Performed By: #### 4 [id number] #### [facility] [address] [place] [address] Dr. Regine Fortune Specimen adequacy: Comment Normal [facility] Comment on above: Result Comment: Sati sfactory for evaluation. Endocervical and/or squamous metaplastic cells (endocervical component) are present. Areas of partially obscuring inflammatory exudate are present. Performed By: #### 4 [id number] #### [facility] [address] [place] [address] Dr. Regine Fortune Thyrotropin [Units/volume] i n Serum or PlasmaOrdered By: Brain Way on 12-10-2022 TSH Qn 2.86 m[IU]/L 0.45-5.33 [facility] Thyroxine (T4) free [Mass/vo lume] in Serum or PlasmaOrdered By: Brain Way on 12-10-2022 Free T4 [Mass/Vol] 0.94 ng/dL 0.61-1.12 [facility] Albumin [Mass/volume] in Ser um or PlasmaOrdered By: Ofelia Hester on 10-16-2022 Albumin [Mass/Vol] 4.1 g/dL 3.2-5.5 [facility] Alkaline phosphatase [Enzyma tic activity/volume] in Serum or PlasmaOrdered By: Ofelia Hester on 10-16-2022 ALP [Catalytic activity/Vol] 56 U/L 32-92 [facility] Amylaseon 10-16-2022 Amylase 43 U/L Normal 28-100 U/L [facility] Other Amylase [Enzymatic activity/ volume] in Serum or PlasmaOrdered By: Ofelia Hester on 10-16-2022 Amylase [Catalytic activity/Vol] 43 U/L 28-100 [facility] Aspartate aminotransferase [ Enzymatic activity/volume] in Serum or PlasmaOrdered By: Ofelia Hester on 10-16-2022 AST [Catalytic activity/Vol] 16 U/L 10-42 [facility] Bilirubin.total [Mass/volume ] in Serum or PlasmaOrdered By: Ofelia Hester on 10-16-2022 Bilirubin [Mass/Vol] 0.6 mg/dL 0.3-1.2 [facility] Calcium [Mass/volume] in Ser um or PlasmaOrdered By: Ofelia Hester on 10-16-2022 Calcium [Mass/Vol] 9.3 mg/dL 8.2-10.2 [facility] Carbon dioxide, total [Moles /volume] in Serum or PlasmaOrdered By: Ofelia Hester on 10-16-2022 CO2 [Moles/Vol] 22.1 mmol/L 22.0-30.0 [facility] Chloride [Moles/volume] in S ghada or PlasmaOrdered By: Ofelia Hester on 10-16-2022 Chloride [Moles/Vol] 105 mmol/L 95-114 [facility] Comprehensive Metabolic Pane samy 10-16-2022 Albumin [Mass/Vol] 4.007431 g/dL Normal 3.2-5.5 g/dL [facility] Other ALT [Catalytic activity/Vol] 17 U/L Normal 10-60 U/L [facility] Other Bilirubin [Mass/Vol] 0.2191051 mg/dL Normal 0.3- 1.2 mg/dL [facility] Other Calcium [Mass/Vol] 9.4288104 mg/dL Normal 8.2-10 .2 mg/dL [facility] Other CO2 [Moles/Vol] 22.11033081 mmol/L Normal 22.0-3 0.0 mmol/L [facility] Other Creatinine [Mass/Vol] 0.17077253 mg/dL Normal 0. 44-1.03 mg/dL [facility] Other Potassium [Moles/Vol] 4.23273133 mmol/L Normal 3 .5-5.1 mmol/L [facility] Other Protein [Mass/Vol] 6.667727 g/dL Normal 6.1-7.9 g/dL [facility] Other Comprehensive Metabolic Panel > 60 [facility] Other Comprehensive Metabolic Panel 2.5 g/dL [facility] Other Creatinine and Glomerular fi ltration rate.predicted panel (S/P/Bld)Ordered By: Ofelia Hester on 10-16-2022 Creatinine [Mass/Vol] 0.55 mg/dL 0.44-1.03 [facility] Estimated glomerular filtrat ion rate (GFR) non- AmericanOrdered By: Ofelia Hester on 10-16-2022 GFR/1.73 sq M.predicted among non-blacks MDRD (S/P/Bld) [Vol rate/Area] > 60 mL/Min [facility] Globulin Calc (S) [Mass/Vol] Ordered By: Ofelia Hester on 10-16-2022 Globulin (S) [Mass/Vol] 2.5 g/dL [facility] Glucose [Mass/volume] in Ser um or PlasmaOrdered By: Ofelia Hester on 10-16-2022 Glucose [Mass/Vol] 86 mg/dL 70-100 [facility] Comment on above: ADA recommended refe rence rangeRandom Glucose Reference Range is dependent on time and content of last meal. Glucose of more than 200 mg/dL in a nonstressed, ambulatory subject supports the diagnosis of Diabetes Mellitus. Laboratory - Chemistry and C hemistry - challengeOrdered By: Ofelia Hester on 10-16-2022 Lipase [Catalytic activity/Vol] 35.0 U/L 22-51 [facility] Lipaseon 10-16-2022 Lipase [Catalytic activity/Vol] 35.58738 U/L Normal 22-51 U/L [facility] Other No Panel InformationOrdered By: Ofelia Hester on 10-16-2022 Estimated GFR () > 60 mL/Min [facility] Comment on above: GFR estimated refere nce range: According to KDOQI guidelines, <60 ml/min/1.73m2 is sufficient to diagnose a patient with chronic kidney disease. Pharmacy Creatinine Clearance (Chem N/A [facility] Potassium [Moles/volume] in Serum or PlasmaOrdered By: Ofelia Hester on 10-16-2022 Potassium [Moles/Vol] 4.3 mmol/L 3.5-5.1 [facility] Protein [Mass/volume] in Ser um or PlasmaOrdered By: Ofelia Hester on 10-16-2022 Protein [Mass/Vol] 6.6 g/dL 6.1-7.9 [facility] Serum or plasma alanine galaviz otransferase measurement without P-5'-P (enzymatic activiOrdered By: Ofelia Hester on 10-16-2022 ALT No additional P-5'-P [Catalytic activity/Vol] 17 U/L 10-60 [facility] Serum or plasma albumin/glob ulin mass ratioOrdered By: Ofelia Hester on 10-16-2022 Albumin/Globulin [Mass ratio] 1.6 {ratio} [facility] Serum or plasma anion gap de terminationOrdered By: Ofelia Hester on 10-16-2022 Anion gap [Moles/Vol] 13.2 mmol/L 6.0-15.0 [facility] Sodium [Moles/volume] in Ser um or PlasmaOrdered By: Ofelia Hester on 10-16-2022 Sodium [Moles/Vol] 136 mmol/L 136-146 [facility] Urea nitrogen [Mass/volume] in Serum or PlasmaOrdered By: Ofelia Hester on 10-16-2022 Urea nitrogen [Mass/Vol] 11 mg/dL 9 [facility] T4 FREE/FREE THYROXon 2021 Free T4 [Mass/Vol] 1.3 ng/dL 0.9 - 1.7 ng/dL [facility] TSH BLDon 07-14-2022 TSH Qn 2.480 m[IU]/L 0.270 - 4.200 mIU/L [facility] VITAMIN B12 BLOODon 07-14-20 Cobalamin (Vitamin B12) [Mass/Vol] 267 pg/mL 232 - 1,245 pg/mL [facility] Quick Fluon 06-04-2022 FLUAV Ab CF (S) [Titer] Negative [facility] Other FLUBV Ab CF (S) [Titer] Negative [facility] Other Quick Strepon 06-04-2022 S. pyogenes Org specific cx Ql (Throat) Negative [facility] Other Quick Strep [facility] Other SARS-CoV-2 (COVID-19) RNA NA A+probe Ql (Resp)on 06-04-2022 SARS-CoV-2 (COVID-19) RNA LAUREN+probe Ql (Unsp spec) Negative [facility] Other TSH DL <= 0.005 mIU/L QnOrde red By: Darwin Jones on 04-14-2022 TSH Qn 6.39 m[IU]/L 0.45-5.33 [facility] Thyroxine (T4) free [Mass/vo lume] in Serum or PlasmaOrdered By: Darwin Jones on 04-14-2022 Free T4 [Mass/Vol] 0.82 ng/dL 0.61-1.12 [facility] Triiodothyronine (T3) Free [ Mass/volume] in Serum or PlasmaOrdered By: Darwin Jones on 04-14-2022 Free T3 [Mass/Vol] 4.08 pg/mL 2.50-3.90 [facility] Serum or plasma calcium luis urement (mass/volume)Ordered By: Saad Valera on 04-06-2022 Calcium [Mass/Vol] 9.4 mg/dL 8.2-10.2 [facility] Serum or plasma intact parat hyroid hormone measurement (mass/volume)Ordered By: Saad Valera on 04-06-2022 Parathyrin.intact [Mass/Vol] 54.8 pg/mL 12 [facility] CHEMISTRYOrdered By: Orion ROP User on 02-18-2022 Glucose [Mass/Vol] 106 mg/dL High 55 - 99 mg/dL [facility] POC Subsection Comment on above: Result Comment: Aurelia breana Meter POC Device SN [id number] Invalid Interpretation Code [facility] POC Subsection POC User ID [id number] Invalid Interpretation Code [facility] POC Subsection POC Username OBINNA EPPERSON Invalid Interpretation Code [facility] POC Subsection Serum or plasma thyroglobuli n antibody assay (units/volume)Ordered By: Darwin Jones on 02-13-2022 Thyroglobulin Ab Qn 971.2 [IU]/mL 0.0-0.9 [facility] Comment on above: Thyroglobulin Antibo dy measured by Flowline Methodology Performed at: [facility] [address] [id number] Suppository Molding Machine Operator: Alexis Ashton PhD, Phone: [phone] Serum or plasma thyroperoxid ase antibody assay (units/volume)Ordered By: Darwin Jones on 02-13-2022 TPO Ab Qn 327 [IU]/mL 0-34 [facility] Thyroxine (T4) free [Mass/vo lume] in Serum or PlasmaOrdered By: Darwin Jones on 02-13-2022 Free T4 [Mass/Vol] 0.66 ng/dL 0.61-1.12 [facility] Triiodothyronine (T3) Free [ Mass/volume] in Serum or PlasmaOrdered By: Darwin Jones on 02-13-2022 Free T3 [Mass/Vol] 4.04 pg/mL 2.50-3.90 [facility] Albumin [Mass/volume] in Ser um or PlasmaOrdered By: Addi Ortega on 02-10-2022 Albumin [Mass/Vol] 4.1 g/dL 3.2-5.5 [facility] Basophils Auto (Bld) [#/Vol] Ordered By: Addi Ortega on 02-10-2022 Basophils (Bld) [#/Vol] 0.0 10*3/uL 0.0-0.2 [facility] Basophils/100 WBC Auto (Bld) Ordered By: Addi Ortega on 02-10-2022 Basophils/100 WBC (Bld) 0.4 % . [facility] Blood hemoglobin measurement (mass/volume)Ordered By: Addi Ortega on 02-10-2022 Hemoglobin (Bld) [Mass/Vol] 14.1 g/dL 11.8-15.4 [facility] Blood leukocytes automated c ount (number/volume)Ordered By: Addi Ortega on 02-10-2022 WBC (Bld) [#/Vol] 7.3 10*3/uL 4.5-11.0 [facility] Cholesterol [Mass/volume] in Serum or PlasmaOrdered By: Addi Ortega on 02-10-2022 Cholesterol [Mass/Vol] 195 mg/dL 140-200 [facility] Comment on above: Chol less than 200 m g/dl low risk Chol 201-239 mg/dl borderline risk Chol 240 mg/dl and greater high risk Cholesterol in LDL Calc [Mas s/Vol]Ordered By: Addi Ortega on 02-10-2022 Cholesterol in LDL [Mass/Vol] 113 mg/dL 0-100 [facility] Comment on above: LDL ATP III CLASSIFI CATION LDL less than 100 mg/dL Optimal LDL 100-129 mg/dL Near or above optimal LDL 130-159 mg/dL Borderline high LDL 160-189 mg/dL High LDL greater than 189 mg/dL Very high Cholesterol in VLDL Calc [Ma ss/Vol]Ordered By: Addi Ortega on 02-10-2022 Cholesterol in VLDL [Mass/Vol] 26 mg/dL [facility] Creatinine and Glomerular fi ltration rate.predicted panel (S/P/Bld)Ordered By: Addi Ortega on 02-10-2022 Creatinine [Mass/Vol] 0.71 mg/dL 0.44-1.03 [facility] Eosinophils Auto (Bld) [#/Vo l]Ordered By: Addi Ortega on 02-10-2022 Eosinophils (Bld) [#/Vol] 0.1 10*3/uL 0.0-0.45 [facility] Eosinophils/100 WBC Auto (Bl d)Ordered By: Addi Ortega on 02-10-2022 Eosinophils/100 WBC (Bld) 1.5 % . [facility] Erythrocyte distribution wid th Auto (RBC) [Ratio]Ordered By: Addi Ortega on 02-10-2022 Erythrocyte distribution width (RBC) [Ratio] 14.0 % 11.9-15.3 [facility] Estimated glomerular filtrat ion rate (GFR) non- AmericanOrdered By: Addi Ortega on 02-10-2022 GFR/1.73 sq M.predicted among non-blacks MDRD (S/P/Bld) [Vol rate/Area] > 60 mL/Min [facility] Globulin Calc (S) [Mass/Vol] Ordered By: Addi Ortega on 02-10-2022 Globulin (S) [Mass/Vol] 2.8 g/dL [facility] Hematocrit Auto (Bld) [Volum e fraction]Ordered By: Addi Ortega on 02-10-2022 Hematocrit (Bld) [Volume fraction] 40.3 % 34.0-46.4 [facility] Laboratory - Chemistry and C hemistry - challengeOrdered By: Addi Ortega on 02-10-2022 Glucose [Mass/Vol] 90 mg/dL 70-100 [facility] - Hematology and Cell countsOrdered By: Addi Ortega on 02-10-2022 Nucleated RBC/100 WBC (Bld) [Ratio] 0.1 % 0-0.5 [facility] Lymphocytes Auto (Bld) [#/Vo l]Ordered By: Addi Ortega on 02-10-2022 Lymphocytes (Bld) [#/Vol] 3.3 10*3/uL 1.00-4.8 [facility] Lymphocytes/100 WBC Auto (Bl d)Ordered By: Addi Ortega on 02-10-2022 Lymphocytes/100 WBC (Bld) 45.2 % . [facility] MCH Auto (RBC) [Entitic mass ]Ordered By: Addi Ortega on 02-10-2022 MCH (RBC) [Entitic mass] 33.0 pg 24.7-34.3 [facility] MCHC Auto (RBC) [Mass/Vol]Or dered By: Addi Ortega on 02-10-2022 MCHC (RBC) [Mass/Vol] 34.9 g/dL 32.0-35.0 [facility] MCV Auto (RBC) [Entitic vol] Ordered By: Addi Ortega on 02-10-2022 MCV (RBC) [Entitic vol] 94.6 fL 80-100 [facility] Monocyte %Ordered By: Addi Ortega on 02-10-2022 Monocyte % 134 mg/dL 35-149 [facility] Comment on above: TRIG ATP III CLASSIF ICATION TRIG less than 150 mg/dL Normal TRIG 150-199 mg/dL Borderline high TRIG 200-500 mg/dL High TRIG greater than 500 mg/dL Very high Standard traceable to the Center for Disease Conrtrol and Prevention (CDC) test method. Monocytes Auto (Bld) [#/Vol] Ordered By: Addi Ortega on 02-10-2022 Monocytes (Bld) [#/Vol] 0.5 10*3/uL 0.0-0.8 [facility] Monocytes/100 WBC Auto (Bld) Ordered By: Addi Ortega on 02-10-2022 Monocytes/100 WBC (Bld) 6.3 % . [facility] Neutrophils Auto (Bld) [#/Vo l]Ordered By: Addi Ortega on 02-10-2022 Neutrophils (Bld) [#/Vol] 3.4 10*3/uL 1.8-7.7 [facility] Neutrophils/100 WBC Auto (Bl d)Ordered By: Addi Ortega on 02-10-2022 Neutrophils/100 WBC (Bld) 46.6 % . [facility] No Panel InformationOrdered By: Addi Ortega on 02-10-2022 Estimated GFR () > 60 mL/Min [facility] Comment on above: GFR estimated refere nce range: According to KDOQI guidelines, <60 ml/min/1.73m2 is sufficient to diagnose a patient with chronic kidney disease. Nicotine Metabolite Negative Cutoff=25 [facility] Comment on above: Performed at: [address], [place], [place] [id number] Suppository Molding Machine Operator: Catherine Mendoza MD, Phone: [phone] Pharmacy Creatinine Clearance (Chem N/A [facility] Platelet mean volume Auto (B ld) [Entitic vol]Ordered By: Addi Ortega on 02-10-2022 Platelet mean volume (Bld) [Entitic vol] 8.4 fL 6.3-10.7 [facility] Platelets Auto (Bld) [#/Vol] Ordered By: Addi Ortega on 02-10-2022 Platelets (Bld) [#/Vol] 321 10*3/uL 150-450 [facility] Protein [Mass/volume] in Ser um or PlasmaOrdered By: Addi Ortega on 02-10-2022 Protein [Mass/Vol] 6.9 g/dL 6.1-7.9 [facility] RBC Auto (Bld) [#/Vol]Ordere d By: Addi Ortega on 02-10-2022 RBC (Bld) [#/Vol] 4.26 10*6/uL 3.60-5.00 [facility] Serum or plasma alanine galaviz otransferase measurement without P-5'-P (enzymatic activiOrdered By: Addi Ortega on 02-10-2022 ALT No additional P-5'-P [Catalytic activity/Vol] 26 U/L 10-60 [facility] Serum or plasma albumin/glob ulin mass ratioOrdered By: Addi Ortega on 02-10-2022 Albumin/Globulin [Mass ratio] 1.5 {ratio} [facility] Serum or plasma alkaline hosea sphatase measurement (enzymatic activity/volume)Ordered By: Addi Ortega on 02-10-2022 ALP [Catalytic activity/Vol] 47 U/L 32-92 [facility] Serum or plasma aspartate am inotransferase measurement (enzymatic activity/volume)Ordered By: Addi Ortega on 02-10-2022 AST [Catalytic activity/Vol] 18 U/L 10-42 [facility] Serum or plasma calcium luis urement (mass/volume)Ordered By: Addi Ortega on 02-10-2022 Calcium [Mass/Vol] 9.3 mg/dL 8.2-10.2 [facility] Serum or plasma chloride radha surement (moles/volume)Ordered By: Addi Ortega on 02-10-2022 Chloride [Moles/Vol] 99 mmol/L 95-114 [facility] Serum or plasma high density lipoprotein (HDL) cholesterol measurementOrdered By: Addi Ortega on 02-10-2022 Cholesterol in HDL [Mass/Vol] 55 mg/dL 35-85 [facility] Comment on above: HDL CHOL ATP-III CLA SSIFICATION Cardiovascular Risk HDL > or equal to 60 mg/dL LOW HDL < 40 mg/dL HIGH Serum or plasma potassium me asurement (moles/volume)Ordered By: Addi Ortega on 02-10-2022 Potassium [Moles/Vol] 4.1 mmol/L 3.5-5.1 [facility] Serum or plasma sodium measu rement (moles/volume)Ordered By: Addi Ortega on 02-10-2022 Sodium [Moles/Vol] 135 mmol/L 136-146 [facility] Serum or plasma total biliru bin measurement (mass/volume)Ordered By: Addi Ortega on 02-10-2022 Bilirubin [Mass/Vol] 0.7 mg/dL 0.3-1.2 [facility] Serum or plasma total carbon dioxide measurement (moles/volume)Ordered By: Addi Ortega on 02-10-2022 CO2 [Moles/Vol] 23.3 mmol/L 22.0-30.0 [facility] Serum or plasma total choles terol/high density lipoprotein (HDL) cholesterol mass ratOrdered By: Addi Ortega on 02-10-2022 Cholesterol.total/Cho lesterol in HDL [Mass ratio] 3.5 {ratio} <5.0 [facility] Serum or plasma urea nitroge n measurement (mass/volume)Ordered By: Addi Ortega on 02-10-2022 Urea nitrogen [Mass/Vol] 17 mg/dL 9- [facility] TSH DL <= 0.005 mIU/L QnOrde red By: Addi Ortega on 02-10-2022 TSH Qn 57.67 m[IU]/L 0.45-5.33 [facility] No Panel Informationon 09-03 6 {mm/hr} Normal 0-34 -[facility]ly [facility] [facility] [address] DO Work Phone: [...] Patient Instructions By signing my name below, ISheila LPN, Scribe, attest that this documentation has [...] Vital Signs Recorded: 03Sep2021 10:02AMRecorded: 03Sep2021 09:55AM [id number], LUE, [id number], RUE, Sitting [id number], LUE, [id number], RUE, Sitting Heart Rate72, Apical Height5 ft 7 in [id number] lb 9.6 oz BMI Lqbbbiwnle07.36 kg/m2 BSA Calculated2.05 Tobacco Useb) No EKG [...] . Sign (more content not included)... Normal AuditFile Tobacco Screening.on [address] [facility] b) No -[facility] [address] DO Work Phone: Vital Signs Date Time Vital Sign Value Performing Clinician Facility 09-07-2024 14:44-0500 Body mass index (BMI) [Ratio] 39.75 kg/m2 Mya MCMILLAN Work Phone: [facility] 09-07-2024 14:44-0500 Body weight 115.12 kg Mya MCMILLAN Work Phone: [facility] 09-07-2024 14:44-0500 Diastolic blood pressure 82 mm[Hg] Mya MCMILLAN Work Phone: [facility] 09-07-2024 14:44-0500 Systolic blood pressure 120 mm[Hg] Mya MCMILLAN Work Phone: [facility] 09-06-2024 14:04-0500 Body temperature 97.88 [degF] Flash Franco [facility] 09-06-2024 14:04-0500 Diastolic blood pressure 77 mm[Hg] Flash Franco [facility] 09-06-2024 14:04-0500 Heart rate 101 /min Flash Franco [facility] 09-06-2024 14:04-0500 Respiratory rate 18 /min Flash Franco [facility] 09-06-2024 14:04-0500 SaO2% (BldA) [Mass fraction] 99 % Flash Franco [facility] 09-06-2024 14:04-0500 Systolic blood pressure 122 mm[Hg] Flash Franco [facility] 09-05-2024 15:45-0500 Hourly Rounding Rogelio Nath [facility] Comment on above: Result Comment: discharge instructions g iven. monitors off and pt up to dress. 09-05-2024 15:35-0500 Hourly Rounding Rogelio Nath [facility] Comment on above: Result Comment: pt was able to keep spri te and lemon ice down. Wants to go home. 09-05-2024 14:49-0500 Hourly Rounding Rogelio Nath [facility] Comment on above: Result Comment: sprite, lemon ice and ju ice given per pt request. 09-05-2024 07:35-0500 Body temperature 98.24 [degF] Rogelio Nath [facility] 09-05-2024 07:35-0500 Diastolic blood pressure 42 mm[Hg] Rogelio Nath [facility] 09-05-2024 07:35-0500 Heart rate 109 /min Rogelio Nath [facility] 09-05-2024 07:35-0500 Mean blood pressure 65 mm[Hg] Rogelio Nath [facility] 09-05-2024 07:35-0500 Respiratory rate 18 /min Rogelio Nath [facility] 09-05-2024 07:35-0500 Systolic blood pressure 111 mm[Hg] Rogelio Nath [facility] 01-21-2025 07:30-0500 Blood Pressure Location Rogelio Nath [facility] 09-05-2024 04:32-0500 Blood Pressure Location Rogelio Nath [facility] 09-05-2024 04:32-0500 Body temperature 98.24 [degF] Roeglio Nath [facility] 09-05-2024 04:32-0500 Diastolic blood pressure 72 mm[Hg] Rogelio Nath [facility] 09-05-2024 04:32-0500 Heart rate 104 /min Rogelio Nath [facility] 09-05-2024 04:32-0500 Mean blood pressure 90 mm[Hg] Rogelio Nath [facility] 09-05-2024 04:32-0500 Respiratory rate 16 /min Rogelio Nath [facility] 09-05-2024 04:32-0500 SaO2% (BldA) [Mass fraction] 98 % Rogelio Nath [facility] 09-05-2024 04:32-0500 Systolic blood pressure 127 mm[Hg] Rogelio Nath [facility] 09-05-2024 04:00-0500 Diastolic blood pressure 64 mm[Hg] Rogelio Nath [facility] 09-05-2024 04:00-0500 Heart rate 115 /min Rogelio Nath [facility] 09-05-2024 04:00-0500 Mean blood pressure 86 mm[Hg] Rogelio Nath [facility] 09-05-2024 04:00-0500 Systolic blood pressure 129 mm[Hg] Rogelio Nath [facility] 09-05-2024 03:06-0500 Body temperature 97.7 [degF] Rogelio Nath [facility] 09-05-2024 03:06-0500 Heart rate 128 /min Rogelio Nath [facility] 09-05-2024 03:06-0500 Respiratory rate 20 /min Rogelio Nath [facility] 09-05-2024 03:06-0500 SaO2% (BldA) [Mass fraction] 98 % Rogelio Nath [facility] 08-25-2024 12:21-0500 Body height 170.18 cm Darwin Easterwood BABY FORMULA WORKER Work Phone: [facility] 08-25-2024 12:21-0500 Body mass index (BMI) [Ratio] 39.6 kg/m2 Darwin Easterwood BABY FORMULA WORKER Work Phone: [facility] 08-25-2024 12:21-0500 Body weight 114.75 kg Darwin Easterwood BABY FORMULA WORKER Work Phone: [facility] 08-25-2024 12:21-0500 Diastolic blood pressure 84 mm[Hg] Darwin Easterwood BABY FORMULA WORKER Work Phone: [facility] 08-25-2024 12:21-0500 Heart rate 108 /min Darwin Easterwood BABY FORMULA WORKER Work Phone: [facility] 08-25-2024 12:21-0500 Respiratory rate 18 /min Darwin Easterwood BABY FORMULA WORKER Work Phone: [facility] 08-25-2024 12:21-0500 SaO2% (BldA) [Mass fraction] 98 % Darwin Easterwood BABY FORMULA WORKER Work Phone: [facility] 08-25-2024 12:21-0500 Systolic blood pressure 132 mm[Hg] Darwin Easterwood BABY FORMULA WORKER Work Phone: [facility] 08-23-2024 11:00-0500 Body mass index (BMI) [Ratio] 40.16 kg/m2 Brain Seamus DO Work Phone: [facility] 08-23-2024 11:00-0500 Body weight 116.3 kg Brain Seamus DO Work Phone: [facility] 08-23-2024 11:00-0500 Diastolic blood pressure 78 mm[Hg] Brain Seamus DO Work Phone: [facility] 08-23-2024 11:00-0500 Systolic blood pressure 120 mm[Hg] Brain Seamus DO Work Phone: [facility] 07-11-2024 13:09-0500 Body mass index (BMI) [Ratio] 38.97 kg/m2 Brain Seamus DO Work Phone: [facility] 07-11-2024 13:09-0500 Body weight 112.86 kg Brain Seamus DO Work Phone: [facility] 07-11-2024 13:09-0500 Diastolic blood pressure 76 mm[Hg] Brain Seamus DO Work Phone: [facility] 07-11-2024 13:09-0500 Systolic blood pressure 120 mm[Hg] Brain Seamus DO Work Phone: [facility] 06-28-2024 08:04-0500 Body weight Darwin Jones APRN Work Phone: [facility] Comment on above: Not provided. 2024 14:13-0500 Diastolic blood pressure 78 mm[Hg] Hayden Reilly MD Work Phone: [facility] 2024 14:13-0500 Heart rate 88 /min Hayden Reilly MD Work Phone: [facility] 2024 14:13-0500 Systolic blood pressure 125 mm[Hg] Hayden Reilly MD Work Phone: [facility] 2024 13:18-0500 Body height 170.2 cm Hayden Reilly MD Work Phone: [facility] 06-12-2024 10:19-0400 Body mass index (BMI) [Ratio] 38.37 kg/m2 Brain Seamus DO Work Phone: [facility] 06-12-2024 10:19-0400 Body weight 111.13 kg Brain Seamus DO Work Phone: [facility] 06-12-2024 10:19-0400 Diastolic blood pressure 80 mm[Hg] Brain Seamus DO Work Phone: [facility] 06-12-2024 10:19-0400 Systolic blood pressure 122 mm[Hg] Brain Seamus DO Work Phone: [facility] 05-11-2024 11:04-0400 Body height 170.18 cm BABY FORMULA WORKER Darwin Easterwood Work Phone: [facility] 05-11-2024 11:04-0400 Body mass index (BMI) [Ratio] 38.2 kg/m2 BABY FORM[employer] WORKER Darwin Easterwood Work Phone: [facility] 05-11-2024 11:04-0400 Body temperature 97.8 [degF] BABY FORMULA WORKER Darwin Easterwood Work Phone: [facility] 05-11-2024 11:04-0400 Body weight 110.67 kg BABY FORMULA WORKER Darwin Easterwood Work Phone: [facility] 05-11-2024 11:04-0400 Diastolic blood pressure 74 mm[Hg] BABY FORMULA WORKER Darwin Easterwood Work Phone: [facility] 05-11-2024 11:04-0400 Heart rate 90 /min BABY FORMUL[employer] WORKER Darwin Easterwood Work Phone: [facility] 05-11-2024 11:04-0400 Respiratory rate 20 /min BABY FORMULA WORKER Darwin Easterwood Work Phone: [facility] 05-11-2024 11:04-0400 SaO2% (BldA) [Mass fraction] 98 % BABY FORMUL[employer] WORKER Darwin Jones Work Phone: [facility] 05-11-2024 11:04-0400 Systolic blood pressure 126 mm[Hg] BABY FORMULA WORKER Darwin Jones Work Phone: [facility] 05-10-2024 13:50-0400 Body mass index (BMI) [Ratio] 38.39 kg/m2 Brain Seamus DO Work Phone: [facility] 05-10-2024 13:50-0400 Body weight 111.19 kg Brain Seamus DO Work Phone: [facility] 05-10-2024 13:50-0400 Diastolic blood pressure 76 mm[Hg] Brain Seamus DO Work Phone: [facility] 05-10-2024 13:50-0400 Systolic blood pressure 120 mm[Hg] Brain Seamus DO Work Phone: [facility] 04-20-2024 10:37-0400 Body mass index (BMI) [Ratio] 38.53 kg/m2 Brain Seamus DO Work Phone: [facility] 04-20-2024 10:37-0400 Body weight 111.58 kg Brain Seamus DO Work Phone: [facility] 04-20-2024 10:37-0400 Diastolic blood pressure 76 mm[Hg] Brain Seamus DO Work Phone: [facility] 04-20-2024 10:37-0400 Systolic blood pressure 122 mm[Hg] Brain Seamus DO Work Phone: [facility] 04-07-2024 09:42-0400 Body mass index (BMI) [Ratio] 38.86 kg/m2 [facility] 04-07-2024 09:42-0400 Body weight 112.55 kg [facility] Nurse [facility] 04-07-2024 09:42-0400 Diastolic blood pressure 70 mm[Hg] [facility] 04-07-2024 09:42-0400 Systolic blood pressure 120 mm[Hg] [facility] 03-18-2024 11:50-0400 Diastolic blood pressure 83 mm[Hg] Toan Steine [facility] 03-18-2024 11:50-0400 Heart rate 75 /min Toan Steine [facility] 03-18-2024 11:50-0400 Mean blood pressure 97 mm[Hg] Toan Steine [facility] 03-18-2024 11:50-0400 Respiratory rate 16 /min Toan Steine [facility] 03-18-2024 11:50-0400 SaO2% (BldA) [Mass fraction] 98 % Toan Jaya [facility] 03-18-2024 11:50-0400 Systolic blood pressure 126 mm[Hg] Toan Jaya [facility] 03-18-2024 09:46-0400 Hourly Rounding Toan Steine [facility] 03-18-2024 09:11-0400 Hourly Rounding Toan Steine [facility] 03-18-2024 08:10-0400 Body temperature 98.6 [degF] Toan Jaya [facility] 03-18-2024 08:10-0400 Diastolic blood pressure 91 mm[Hg] Toan Jaya [facility] 03-18-2024 08:10-0400 Heart rate 98 /min Toan Steine [facility] 03-18-2024 08:10-0400 Hourly Rounding Toan Jaya [facility] 03-18-2024 08:10-0400 Respiratory rate 17 /min [place] [facility] 03-18-2024 08:10-0400 SaO2% (BldA) [Mass fraction] 98 % [place] [facility] 03-18-2024 08:10-0400 Systolic blood pressure 135 mm[Hg] [place] [facility] 01-25-2024 08:59-0400 Body height 170.18 cm BABY FORMULA WORKER Darwin Easterwood Work Phone: [facility] 01-25-2024 08:59-0400 Body mass index (BMI) [Ratio] 37.4 kg/m2 BABY FORM[employer] WORKER Darwin Easterwood Work Phone: [facility] 01-25-2024 08:59-0400 Body temperature 98 [degF] BABY FORMULA WORKER Darwin Easterwood Work Phone: [facility] 01-25-2024 08:59-0400 Body weight 108.4 kg BABY FORMULA WORKER Darwin Easterwood Work Phone: [facility] 01-25-2024 08:59-0400 Diastolic blood pressure 80 mm[Hg] BABY FORMULA WORKER Darwin Easterwood Work Phone: [facility] 01-25-2024 08:59-0400 Heart rate 98 /min BABY FORMULA WORKER Darwin Easterwood Work Phone: [facility] 01-25-2024 08:59-0400 Respiratory rate 20 /min BABY FORMULA WORKER Darwin Easterwood Work Phone: [facility] 01-25-2024 08:59-0400 SaO2% (BldA) [Mass fraction] 99 % BABY FORMULA WORKER Darwin Easterwood Work Phone: [facility] 01-25-2024 08:59-0400 Systolic blood pressure 122 mm[Hg] BABY FORMULA WORKER Darwin Eastermacy Work Phone: [facility] 12-24-2023 09:56-0400 Body height 170.18 cm BABY FORMULA WORKER Darwin Jonesermacy Work Phone: [facility] 12-24-2023 09:56-0400 Body mass index (BMI) [Ratio] 37.7 kg/m2 BABY FORMULA WORKER Darwin Jonesermacy Work Phone: [facility] 12-24-2023 09:56-0400 Body temperature 97.6 [degF] BABY FORMULA WORKER Darwin Jonesermacy Work Phone: [facility] 12-24-2023 09:56-0400 Body weight 109.31 kg BABY FORMULA WORKERAlayna Jonesermacy Work Phone: [facility] 12-24-2023 09:56-0400 Diastolic blood pressure 84 mm[Hg] BABY FORMULA WORKER Darwin Jonesermacy Work Phone: [facility] 12-24-2023 09:56-0400 Heart rate 102 /min BABY FORMULA WORKER Darwin Jonesermacy Work Phone: [facility] 12-24-2023 09:56-0400 Respiratory rate 20 /min BABY FORMULA WORKERAlayna Jonesermacy Work Phone: [facility] 12-24-2023 09:56-0400 SaO2% (BldA) [Mass fraction] 98 % BABY FORMULA WORKERAlayna Jonesermacy Work Phone: [facility] 12-24-2023 09:56-0400 Systolic blood pressure 126 mm[Hg] BABY FORMULA WORKER Darwin Eastermacy Work Phone: [facility] 11-25-2023 09:01-0400 Body height 170.18 cm BABY FORMULA WORKERAlayna Jonesermacy Work Phone: [facility] 11-25-2023 09:01-0400 Body mass index (BMI) [Ratio] 37.7 kg/m2 BABY FORMULA WORKERAlayna Jonesermacy Work Phone: [facility] 11-25-2023 09:01-0400 Body temperature 97 [degF] BABY FORMULA WORKERAlayna Jones Work Phone: [facility] 11-25-2023 09:01-0400 Body weight 109.31 kg BABY FORMULA WORKERAlayna Jones Work Phone: [facility] 11-25-2023 09:01-0400 Diastolic blood pressure 76 mm[Hg] BABY FORMULA WORKERAlayna Jonesermacy Work Phone: [facility] 11-25-2023 09:01-0400 Heart rate 95 /min BABY FORMULA WORKERAlayna Jones Work Phone: [facility] 11-25-2023 09:01-0400 Respiratory rate 20 /min BABY FORMULA WORKERAlayna Jones Work Phone: [facility] 11-25-2023 09:01-0400 SaO2% (BldA) [Mass fraction] 98 % BABY FORMULA WORKERAlayna Jones Work Phone: [facility] 11-25-2023 09:01-0400 Systolic blood pressure 120 mm[Hg] SHIRLEY Jones Work Phone: [facility] 11-18-2023 08:03-0400 Body weight 110.68 kg Ruby Whittington MD Work Phone: [facility] 11-18-2023 08:03-0400 Diastolic blood pressure 92 mm[Hg] Ruby Whittington MD Work Phone: [facility] 11-18-2023 08:03-0400 Heart rate 100 /min Ruby Whittington MD Work Phone: [facility] 11-18-2023 08:03-0400 Systolic blood pressure 132 mm[Hg] Ruby Whittington MD Work Phone: [facility] 10-20-2023 09:05-0500 Body height 170.18 cm BABY FORMULA WORKERAlayna Jonesermacy Work Phone: [facility] 10-20-2023 09:05-0500 Body mass index (BMI) [Ratio] 38.3 kg/m2 BABY FORMULA WORKER Darwin Jonesermacy Work Phone: [facility] 10-20-2023 09:05-0500 Body temperature 98 [degF] BABY FORMULA WORKER Darwin Jones Work Phone: [facility] 10-20-2023 09:05-0500 Body weight 111.13 kg BABY FORMULA WORKER Darwin Jones Work Phone: [facility] 10-20-2023 09:05-0500 Diastolic blood pressure 78 mm[Hg] BABY FORMULA WORKER Darwin Jonesermacy Work Phone: [facility] 10-20-2023 09:05-0500 Heart rate 82 /min BABY FORMULA WORKER Darwin Jones Work Phone: [facility] 10-20-2023 09:05-0500 Respiratory rate 20 /min BABY FORMULA WORKER Darwin Jones Work Phone: [facility] 10-20-2023 09:05-0500 SaO2% (BldA) [Mass fraction] 98 % BABY FORMULA WORKERAlayna Jonesermacy Work Phone: [facility] 10-20-2023 09:05-0500 Systolic blood pressure 124 mm[Hg] BABY FORMULA WORKER Darwin Jonesermacy Work Phone: [facility] 09-29-2023 10:41-0500 Blood Pressure Location [place] [facility] 09-29-2023 10:41-0500 Body temperature 98.24 [degF] [place] [facility] 09-29-2023 10:41-0500 Diastolic blood pressure 78 mm[Hg] [place] [facility] 09-29-2023 10:41-0500 Heart rate 95 /min [place] [facility] 09-29-2023 10:41-0500 SaO2% (BldA) [Mass fraction] 97 % [place] [facility] 09-29-2023 10:41-0500 Systolic blood pressure 122 mm[Hg] [place] [facility] 09-21-2023 09:00-0500 Body height 170.18 cm Darwin [employer]ke[employer] Other [facility] Other 09-21-2023 09:00-0500 Body mass index (BMI) [Ratio] 38.37 kg/m2 Darwin onkea Other [facility] Other 09-21-2023 09:00-0500 Body temperature 98 [degF] Darwin SpoqaerOfferum Other [facility] Other 09-21-2023 09:00-0500 Body weight 111.13 kg Darwin SpoqaerOfferum Other [facility] Other 09-21-2023 09:00-0500 Diastolic blood pressure 84 mm[Hg] Darwin Easterwood Other [facility] Other 09-21-2023 09:00-0500 Respiratory rate 20 /min Darwin SpoqaerOfferum Other [facility] Other 09-21-2023 09:00-0500 SaO2% (BldA) [Mass fraction] 98 % Darwin SpoqaerOfferum Other [facility] Other 09-21-2023 09:00-0500 Systolic blood pressure 126 mm[Hg] Darwin Easterwood Other [facility] Other 08-25-2023 09:30-0500 Body height 170.18 cm Darwin Easterwood Other [facility] 08-25-2023 09:30-0500 Body mass index (BMI) [Ratio] 39.46 kg/m2 Darwin Easterwood Other [employer] Other 08-25-2023 09:30-0500 Body temperature 97.6 [degF] Darwin Easterwood Other [facility] Other 08-25-2023 09:30-0500 Body weight 114.31 kg Darwin Easterwood Other [facility] Other 08-25-2023 09:30-0500 Body weight 114.3 kg BABY FORMULA WORKER Darwin Jones Work Phone: [facility] 08-25-2023 09:30-0500 Diastolic blood pressure 80 mm[Hg] Darwin Easterwood Other [facility] 08-25-2023 09:30-0500 Respiratory rate 20 /min Darwin Easterwood Other [facility] Other 08-25-2023 09:30-0500 SaO2% (BldA) [Mass fraction] 98 % Darwin Easterwood Other [facility] Other 08-25-2023 09:30-0500 Systolic blood pressure 120 mm[Hg] Darwin Easterwood Other [facility] 07-23-2023 09:30-0500 Body height 170.18 cm BABY FORMULA WORKER Darwin Easterwood Work Phone: [facility] 07-23-2023 09:30-0500 Body weight 116.57 kg BABY FORMULA WORKER Darwin Easterwood Work Phone: [facility] 07-23-2023 09:30-0500 Diastolic blood pressure 80 mm[Hg] BABY FORMULA WORKER Darwin Easterwood Work Phone: [facility] 07-23-2023 09:30-0500 Systolic blood pressure 118 mm[Hg] BABY FORMULA WORKER Darwin Easterwood Work Phone: [facility] 06-23-2023 09:30-0500 Body height 170.18 cm Darwin Easterwood Other [facility] Other 06-23-2023 09:30-0500 Body mass index (BMI) [Ratio] 40.4 kg/m2 Darwin Easterwood Other [facility] Other 06-23-2023 09:30-0500 Body temperature 97.4 [degF] Darwin Easterwood Other [facility] Other 06-23-2023 09:30-0500 Body weight 117.03 kg Darwin Easterwood Other [facility] Other 06-23-2023 09:30-0500 Diastolic blood pressure 78 mm[Hg] Darwin Easterwood Other [facility] Other 06-23-2023 09:30-0500 Respiratory rate 20 /min Darwin Easterwood Other [facility] Other 06-23-2023 09:30-0500 SaO2% (BldA) [Mass fraction] 98 % Darwin Easterwood Other [facility] Other 06-23-2023 09:30-0500 Systolic blood pressure 120 mm[Hg] Darwin Easterwood Other [facility] Other 06-08-2023 14:00-0400 Body temperature 97.2 [degF] Francy Gan PA-C Work Phone: [facility] 05-26-2023 10:30-0400 Body height 170.18 cm Darwin Easterwood Other [facility] Other 05-26-2023 10:30-0400 Body mass index (BMI) [Ratio] 41.5 kg/m2 Darwin Easterwood Other [facility] Other 05-26-2023 10:30-0400 Body temperature 98.4 [degF] Darwin Easterwood Other [facility] Other 05-26-2023 10:30-0400 Body weight 120.2 kg Darwin Easterwood Other [facility] Other 05-26-2023 10:30-0400 Diastolic blood pressure 70 mm[Hg] Darwin Easterwood Other [facility] Other 05-26-2023 10:30-0400 Respiratory rate 20 /min Darwin Easterwood Other [facility] Other 05-26-2023 10:30-0400 SaO2% (BldA) [Mass fraction] 97 % Darwin Easterwood Other [facility] Other 05-26-2023 10:30-0400 Systolic blood pressure 112 mm[Hg] Darwin Easterwood Other [facility] Other 04-28-2023 09:15-0400 Body height 170.18 cm Darwin Easterwood Other [facility] Other 04-28-2023 09:15-0400 Body mass index (BMI) [Ratio] 41.34 kg/m2 Darwin Easterwood Other [facility] Other 04-28-2023 09:15-0400 Body temperature 97.2 [degF] Darwin Easterwood Other [facility] Other 04-28-2023 09:15-0400 Body weight 119.75 kg Darwin Easterwood Other [facility] Other 04-28-2023 09:15-0400 Diastolic blood pressure 82 mm[Hg] Darwin Easterwood Other [facility] Other 04-28-2023 09:15-0400 Respiratory rate 20 /min Darwin Easterwood Other [facility] Other 04-28-2023 09:15-0400 SaO2% (BldA) [Mass fraction] 97 % Darwin Easterwood Other [facility] Other 04-28-2023 09:15-0400 Systolic blood pressure 120 mm[Hg] Darwin Easterwood Other [facility] Other 04-16-2023 11:00-0400 Body height 170.18 cm Darwin Easterwood Other [facility] Other 04-16-2023 11:00-0400 Body mass index (BMI) [Ratio] 41.03 kg/m2 Darwin Joneserwood Other [facility] Other 04-16-2023 11:00-0400 Body temperature 97.8 [degF] Darwin Robertermacy Other [facility] Other 04-16-2023 11:00-0400 Body weight 118.84 kg Darwin Jones Other [facility] Other 04-16-2023 11:00-0400 Diastolic blood pressure 80 mm[Hg] Darwin Easterwood Other [facility] Other 04-16-2023 11:00-0400 Respiratory rate 20 /min Darwin onkea Other [facility] Other 04-16-2023 11:00-0400 SaO2% (BldA) [Mass fraction] 98 % Darwin onkea Other [facility] Other 04-16-2023 11:00-0400 Systolic blood pressure 120 mm[Hg] Darwin Easterwood Other [facility] Other 03-22-2023 22:51-0400 Diastolic blood pressure 74 mm[Hg] Kaylinn Dokken [facility] 03-22-2023 22:51-0400 Heart rate 80 /min Kaylinn Dokken [facility] 03-22-2023 22:51-0400 Mean blood pressure 92 mm[Hg] Kaylinn Dokken [facility] 03-22-2023 22:51-0400 Respiratory rate 16 /min Kaylinn Dokken [facility] 03-22-2023 22:51-0400 SaO2% (BldA) [Mass fraction] 98 % Kaylinn Dokken [facility] 03-22-2023 22:51-0400 Systolic blood pressure 128 mm[Hg] Kaylinn Dokken [facility] 03-22-2023 21:24-0400 Heart rate 76 /min Kaylinn Dokken [facility] 03-22-2023 21:24-0400 Respiratory rate 16 /min Kaylinn Dokken [facility] 03-22-2023 21:24-0400 SaO2% (BldA) [Mass fraction] 97 % Kaylinn Dokken [facility] 03-22-2023 19:54-0400 Body temperature 98.06 [degF] Kaylinn Dokken [facility] 03-22-2023 19:54-0400 Diastolic blood pressure 89 mm[Hg] Kaylinn Dokken [facility] 03-22-2023 19:54-0400 Heart rate 81 /min Kaylinn Dokken [facility] 03-22-2023 19:54-0400 Respiratory rate 18 /min Kaylinn Dokken [facility] 03-22-2023 19:54-0400 SaO2% (BldA) [Mass fraction] 99 % Kaylinn Dokken [facility] 03-22-2023 19:54-0400 Systolic blood pressure 138 mm[Hg] Kaylinn Dokken [facility] 03-22-2023 15:18-0400 Body height 170.18 cm BABY FORMULA WORKER Darwin Jonesermacy Work Phone: [facility] 03-22-2023 15:18-0400 Body temperature 98.2 [degF] BABY FORMULA WORKER Darwin Eastermacy Work Phone: [facility] 03-22-2023 15:18-0400 Body weight 120.5 kg BABY FORMULA WORKER Darwin Jonesermacy Work Phone: [facility] 03-22-2023 15:18-0400 Diastolic blood pressure 74 mm[Hg] BABY FORMULA WORKER Darwin Eastermacy Work Phone: [facility] 03-22-2023 15:18-0400 Heart rate 92 /min BABY FORMULA WORKER Darwin Jonesermacy Work Phone: [facility] 03-22-2023 15:18-0400 Respiratory rate 20 /min BABY FORMULA WORKER Darwin Jonesermacy Work Phone: [facility] 03-22-2023 15:18-0400 SaO2% (BldA) [Mass fraction] 97 % BABY FORMULA WORKER Darwin Jonesermacy Work Phone: [facility] 03-22-2023 15:18-0400 Systolic blood pressure 175 mm[Hg] BABY FORMULA WORKER Darwin Eastermacy Work Phone: [facility] 10-05-2022 09:00-0500 Body height 170.18 cm Ofelia Missler Other [facility] Other 10-05-2022 09:00-0500 Body mass index (BMI) [Ratio] 37.21 kg/m2 Ofelia Missler Other [facility] Other 10-05-2022 09:00-0500 Body weight 107.78 kg Ofelia Missler Other [facility] Other 10-05-2022 09:00-0500 Diastolic blood pressure 45 mm[Hg] Ofelia Missler Other [facility] Other 10-05-2022 09:00-0500 Respiratory rate 18 /min Ofelia Missler Other [facility] Other 10-05-2022 09:00-0500 SaO2% (BldA) [Mass fraction] 97 % Ofelia Missler Other [facility] Other 10-05-2022 09:00-0500 Systolic blood pressure 100 mm[Hg] Ofelia Missler Other [facility] Other 09-02-2022 11:30-0500 Body height 170.18 cm Ofelia Missler Other [facility] Other 09-02-2022 11:30-0500 Body mass index (BMI) [Ratio] 38.04 kg/m2 Ofelia Missler Other [facility] Other 09-02-2022 11:30-0500 Body weight 110.18 kg Ofelia Missler Other [facility] Other 09-02-2022 11:30-0500 Diastolic blood pressure 79 mm[Hg] Ofelia Missler Other [facility] Other 09-02-2022 11:30-0500 Respiratory rate 18 /min Ofelia Missler Other [facility] Other 09-02-2022 11:30-0500 SaO2% (BldA) [Mass fraction] 96 % Ofelia Missler Other [facility] Other 09-02-2022 11:30-0500 Systolic blood pressure 119 mm[Hg] Ofelia Missler Other [facility] Other 08-25-2022 14:00-0500 Body height 170.18 cm Lilly Fitt Other [facility] Other 08-25-2022 14:00-0500 Body mass index (BMI) [Ratio] 38.01 kg/m2 Lilly Fitt Other [facility] Other 08-25-2022 14:00-0500 Body weight 110.09 kg Lilly Fitt Other [facility] Other 07-31-2022 09:45-0500 Body height 170.18 cm Ofelia Missler Other [facility] Other 07-31-2022 09:45-0500 Body mass index (BMI) [Ratio] 38.2 kg/m2 Ofelia Missler Other [facility] Other 07-31-2022 09:45-0500 Body weight 110.63 kg Ofelia Missler Other [facility] Other 07-31-2022 09:45-0500 Diastolic blood pressure 78 mm[Hg] Ofelia Missler Other [facility] Other 07-31-2022 09:45-0500 Respiratory rate 18 /min Ofelia Missler Other [facility] Other 07-31-2022 09:45-0500 SaO2% (BldA) [Mass fraction] 96 % Ofelia Missler Other [facility] Other 07-31-2022 09:45-0500 Systolic blood pressure 135 mm[Hg] Ofelia Missler Other [facility] Other 07-14-2022 08:49-0500 Body height 170.5 cm Ruby Whittington MD Work Phone: [facility] 07-14-2022 08:49-0500 Body weight 111.58 kg Ruby Whittington MD Work Phone: [facility] 07-14-2022 08:49-0500 Diastolic blood pressure 73 mm[Hg] Ruby Whittington MD Work Phone: [facility] 07-14-2022 08:49-0500 Heart rate 92 /min Ruby Whittington MD Work Phone: [facility] 07-14-2022 08:49-0500 Systolic blood pressure 140 mm[Hg] Ruby Whittington MD Work Phone: [facility] 06-17-2022 15:45-0400 Body height 170.18 cm Ofelia Missler Other [facility] Other 06-17-2022 15:45-0400 Body mass index (BMI) [Ratio] 38.99 kg/m2 Ofelia Missler Other [facility] Other 06-17-2022 15:45-0400 Body weight 112.95 kg Ofelia Missler Other [facility] Other 06-17-2022 15:45-0400 Diastolic blood pressure 90 mm[Hg] Ofelia Missler Other [facility] Other 06-17-2022 15:45-0400 Respiratory rate 18 /min Ofelia Missler Other [facility] Other 06-17-2022 15:45-0400 SaO2% (BldA) [Mass fraction] 96 % Ofelia Hester Other [facility] Other 06-17-2022 15:45-0400 Systolic blood pressure 140 mm[Hg] Ofelia Hester Other [facility] Other 06-04-2022 13:00-0400 Body height 170.18 cm Sima Ross Other [facility] Other 06-04-2022 13:00-0400 Body mass index (BMI) [Ratio] 38.37 kg/m2 Sima Ross Other [facility] Other 06-04-2022 13:00-0400 Body temperature 98.6 [degF] Sima Ross Other [facility] Other 06-04-2022 13:00-0400 Body weight 111.13 kg Sima Ross Other [facility] Other 06-04-2022 13:00-0400 Diastolic blood pressure 83 mm[Hg] Sima Ross Other [facility] Other 06-04-2022 13:00-0400 Respiratory rate 18 /min Sima Ross Other [facility] Other 06-04-2022 13:00-0400 SaO2% (BldA) [Mass fraction] 99 % Sima Ross Other [facility] Other 06-04-2022 13:00-0400 Systolic blood pressure 124 mm[Hg] Sima Ross Other [facility] Other 05-27-2022 12:15-0400 Body height 170.18 cm Lilly Luke Other [facility] Other 05-18-2022 09:30-0400 Body height 170.18 cm Ofelia Missler Other [facility] Other 05-18-2022 09:30-0400 Body mass index (BMI) [Ratio] 39.37 kg/m2 Ofelia Missler Other [facility] Other 05-18-2022 09:30-0400 Body temperature 98.1 [degF] Ofelia Missler Other [facility] Other 05-18-2022 09:30-0400 Body weight 114.04 kg Ofelia Missler Other [facility] Other 05-18-2022 09:30-0400 Diastolic blood pressure 80 mm[Hg] Ofelia Missler Other [facility] Other 05-18-2022 09:30-0400 Respiratory rate 18 /min Ofelia Missler Other [facility] Other 05-18-2022 09:30-0400 SaO2% (BldA) [Mass fraction] 99 % Ofelia Missler Other [facility] Other 05-18-2022 09:30-0400 Systolic blood pressure 115 mm[Hg] Ofelia Missler Other [facility] Other 04-17-2022 09:30-0400 Body height 170.18 cm Darwin Easterwood Other [facility] Other 04-17-2022 09:30-0400 Body mass index (BMI) [Ratio] 39.15 kg/m2 Darwin Easterwood Other [facility] Other 04-17-2022 09:30-0400 Body temperature 96.9 [degF] Darwin Easterwood Other [facility] Other 04-17-2022 09:30-0400 Body weight 113.4 kg Darwin Easterwood Other [facility] Other 04-17-2022 09:30-0400 Diastolic blood pressure 82 mm[Hg] Darwin Easterwood Other [facility] Other 04-17-2022 09:30-0400 Respiratory rate 20 /min Darwin Easterwood Other [facility] Other 04-17-2022 09:30-0400 SaO2% (BldA) [Mass fraction] 99 % Darwin Easterwood Other [facility] Other 04-17-2022 09:30-0400 Systolic blood pressure 124 mm[Hg] Darwin Easterwood Other [facility] Other 02-18-2022 21:41-0400 Diastolic blood pressure 88 mm[Hg] Fazal Antoni [facility] 02-18-2022 21:41-0400 Heart rate 84 /min Fazal Antoni [facility] 02-18-2022 21:41-0400 Mean blood pressure 101 mm[Hg] Fazal Antoni [facility] 02-18-2022 21:41-0400 Respiratory rate 17 /min Fazal Antoni [facility] 02-18-2022 21:41-0400 SaO2% (BldA) [Mass fraction] 98 % Darwin Spo[employer] Other [facility] Other 02-18-2022 21:41-0400 Systolic blood pressure 126 mm[Hg] Fazal Antoni [facility] 02-18-2022 20:42-0400 gluc 106 mg/dL Fazal Antoni [facility] 02-18-2022 20:42-0400 gluc Fazal Antoni [facility] 02-18-2022 20:33-0400 Body temperature 98.06 [degF] Fazal Antoni [facility] 02-18-2022 20:33-0400 Diastolic blood pressure 99 mm[Hg] Fazal Antoni [facility] 02-18-2022 20:33-0400 Heart rate 99 /min Fazal Antoni [facility] 02-18-2022 20:33-0400 Respiratory rate 18 /min Fazal Antoni [facility] 02-18-2022 20:33-0400 Systolic blood pressure 153 mm[Hg] Fazal Antoni [facility] 02-18-2022 10:00-0400 Body height 170.18 cm [facility] Other [facility] Other 02-18-2022 10:00-0400 Body mass index (BMI) [Ratio] 38.52 kg/m2 Darwin Easterwood Other [facility] Other 02-18-2022 10:00-0400 Body temperature 97 [degF] Darwin Easterwood Other [facility] Other 02-18-2022 10:00-0400 Body weight 111.59 kg Darwin Easterwood Other [facility] Other 02-18-2022 10:00-0400 Diastolic blood pressure 82 mm[Hg] Darwin Easterwood Other [facility] Other 02-18-2022 10:00-0400 Respiratory rate 20 /min Darwin Easterwood Other [facility] Other 02-18-2022 10:00-0400 Systolic blood pressure 118 mm[Hg] Darwin Easterwood Other [facility] Other 02-11-2022 12:00-0400 Body height 170.18 cm Darwin Easterwood Other [facility] Other 02-11-2022 12:00-0400 Body mass index (BMI) [Ratio] 37.9 kg/m2 Darwin Easterwood Other [facility] Other 02-11-2022 12:00-0400 Body temperature 97.2 [degF] Dawrin Easterwood Other [facility] Other 02-11-2022 12:00-0400 Body weight 109.77 kg Darwin Easterwood Other [facility] Other 02-11-2022 12:00-0400 Diastolic blood pressure 88 mm[Hg] Darwin Jones Other [facility] Other 02-11-2022 12:00-0400 Respiratory rate 20 /min Darwin Jones Other [facility] Other 02-11-2022 12:00-0400 SaO2% (BldA) [Mass fraction] 98 % Darwin Jones Other [facility] Other 02-11-2022 12:00-0400 Systolic blood pressure 126 mm[Hg] Darwin Jones Other [facility] Other 09-03-2021 10:02-0500 Diastolic blood pressure 86 mm[Hg] Unknown Unknown [employer] 600 DO Work Phone: 09-03-2021 10:02-0500 Systolic blood pressure 110 mm[Hg] Unknown Unknown [facility] [employer] 600 DO Work Phone: 09-03-2021 09:55-0500 Body height 170.18 cm Unknown Unknown [facility] Education[facility] [employer] 600 DO Work Phone: 09-03-2021 09:55-0500 Body mass index (BMI) [Ratio] 32.36 kg/m2 Unknown Unknown [employer] 600 DO Work Phone: 09-03-2021 09:55-0500 Body surface area Derived from formula 2.05 m2 Unknown Unknown [facility] [employer] 600 DO Work Phone: 09-03-2021 09:55-0500 Body weight 93.71 kg Unknown Unknown [facility] Education[facility] [employer] 600 DO Work Phone: 09-03-2021 09:55-0500 Diastolic blood pressure 84 mm[Hg] Unknown Unknown [facility] Education[facility] [employer] 600 DO Work Phone: 09-03-2021 09:55-0500 Heart rate 72 /min Unknown Unknown [facility] 600 DO Work Phone: 09-03-2021 09:55-0500 Systolic blood pressure 122 mm[Hg] Unknown Unknown [facility] 600 DO Work Phone: Encounters Encounter Date Encounter Type Care Provider Facility Start: 09-19-2024 End: 09-19-2024 Bamboo flowsheet Brain Seamus DO Work Phone: [facility] Start: 09-19-2024 End: 09-19-2024 Bamboo flowsheet Brain Seamus DO Work Phone: [facility] Start: 09-19-2024 End: 09-19-2024 ambulatory BRAIN SEAMUS Not Available Start: 09-15-2024 End: 09-15-2024 Clinisync Result Encounter Brain Seamus DO Work Phone: [facility] External [facility] Unsolicited Start: 09-15-2024 End: 09-15-2024 Clinisync Result Encounter Brain Seamus DO Work Phone: [facility] External [facility] Unsolicited Start: 09-14-2024 End: 09-14-2024 Patient encounter procedure Darwin Jones BABY FORMULA WORKER Work Phone: [facility] Work Phone: Start: 09-14-2024 End: 09-14-2024 ambulatory Darwin Jones BABY FORMULA WORKER Work Phone: [facility] Work Phone: Start: 09-11-2024 End: 09-11-2024 [...] Start: 09-07-2024 Non-patient / Non-visit Darwin corral APRN Work Phone: [facility] Work Phone: Start: 09-06-2024 End: 09-06-2024 Emergency department patient visit Flash Franco [facility] Start: 09-05-2024 ambulatory Rogelio Nath Facility :[facility] Start: 09-05-2024 End: 09-05-2024 ambulatory Rogelio Nath Facility:[facility] Start: 09-05-2024 Emergency department patient visit DO Gabriel Curtis Facility:[facility] Start: 09-05-2024 End: 09-05-2024 Observation Rogelio Nath [facility] Start: 08-25-2024 End: 08-25-2024 Clinisync Result Encounter Brain Seamus DO Work Phone: [facility] External [facility] Unsolicited Start: 08-25-2024 End: 08-25-2024 Clinisync Result Encounter Brain Seamus DO Work Phone: [facility] Unsolicited Start: 08-25-2024 End: 08-25-2024 ambulatory Darwin Jones BABY FORMULA WORKER Work Phone: [facility] Work Phone: Start: 08-25-2024 End: 08-25-2024 Patient encounter procedure Darwin Jones BABY FORMULA WORKER Work Phone: [facility] Work Phone: Start: 08-23-2024 End: 08-23-2024 Bamboo flowsheet Brani Seamus DO Work Phone: [facility] [...] Start: 08-02-2024 End: 08-02-2024 ambulatory DARCY SALAZARHID [facility] Start: 07-31-2024 End: 07-31-2024 Patient encounter procedure Darwin Jones APRN Work Phone: [facility] [place] Work Phone: Start: 07-31-2024 End: 07-31-2024 Orders Only Hayden Reilly MD Work Phone: [facility] Comment on above: History of pericardi tis (Primary Dx); Mild concentric left ventricular hypertrophy (LVH); 25 weeks gestation of Start: 07-27-2024 End: 07-27-2024 ambulatory NO PCP NO PCP [facility] Start: 07-11-2024 End: 07-11-2024 flow sheet Brain Seamus DO Work Phone: [facility] Comment on above: 22 weeks gestation o f ; Second trimester ; Nausea and vomiting during ; Diabetes mellitus screening Start: 06-28-2024 End: 06-28-2024 Patient encounter procedure Darwin Jones BABY FORMULA WORKER Work Phone: [facility] [place] Work Phone: Start: 06-28-2024 End: 06-28-2024 ambulatory Darwin Jones BABY FORMULA WORKER Work Phone: [facility] Work Phone: Start: 2024 End: 2024 Office consultation new/estab patient 60 min Hayden Reilly MD Work Phone: [facility] [place] Comment on above: 20 weeks gestation o f (Primary Dx); Tiffani's disease; 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; Hx of preeclampsia, prior , currently ; Elevated BP without diagnosis of hypertension; History of pericarditis; with history of section, antepartum; History of macrosomia in infant in prior , currently ; Obesity affecting , antepartum, unspecified obesity type; Depression affecting Start: 2024 End: 2024 ambulatory [facility] Start: 06-22-2024 End: 06-22-2024 Patient encounter procedure Darwin Jones BABY FORMULA WORKER Work Phone: [facility] [place] Work Phone: Start: 06-22-2024 End: 06-22-2024 ambulatory Darwin Jones BABY FORMULA WORKER Work Phone: [facility] Work Phone: Start: 06-21-2024 End: 06-21-2024 Chart abstracting Hayden Reilly MD Work Phone: [facility] Start: 06-12-2024 End: 06-12-2024 Bamboo flowsheet Brain [facility] DO Work Phone: [facility] Start: [...] 05-24-2024 End: 05-24-2024 Patient encounter procedure SHIRLEY Orosco Janepewamo Work Phone: [facility] [place] Work Phone: Start: 05-24-2024 End: 05-24-2024 ambulatory [facility] Work Phone: [facility] Work Phone: Start: 05-11-2024 End: 05-11-2024 ambulatory [facility]IRLEY [facility] Work Phone: [facility] Work Phone: Start: 05-11-2024 End: 05-11-2024 Encounter for general adult medical examination without abnormal findings [facility] Work Phone: [facility] Start: 05-11-2024 End: 05-11-2024 Patient encounter procedure BABY FORMULA WORKERAlayna Orosco Robert Work Phone: [facility] Work Phone: Start: 05-10-2024 End: 05-10-2024 Bamboo [...] 04-06-2024 Departed Referred SHIRLEY Jones Work Phone: [facility] Start: 04-06-2024 End: 04-06-2024 ambulatory SHIRLEY Jones Work Phone: [facility] Work Phone: Start: 03-21-2024 End: 03-21-[address] Not Available Start: 03-18-2024 End: 03-18-2024 Emergency department patient visit [place] [facility] Start: 02-24-2024 End: 02-24-2024 Patient encounter procedure SHIRLEY Jones Work Phone: [facility] [place] Work Phone: Start: 02-24-2024 End: 02-24-2024 ambulatory SHIRLEY Jonesermacy Work Phone: [facility] Work Phone: Start: 01-25-2024 End: 01-25-2024 ambulatory SHIRLEY Jones Work Phone: [facility] Work Phone: Start: 01-25-2024 End: 01-25-2024 Patient encounter procedure SHIRLEY Jones Work Phone: [facility] [place] Work Phone: Start: 01-24-2024 End: 01-24-2024 Patient encounter procedure SHIRLEY Jones Work Phone: [facility] [place] Work Phone: Start: 01-24-2024 End: 01-24-2024 ambulatory BABY FORMULA WORKER Darwin Anaya Easterwood Work Phone: [facility] Work Phone: Start: 12-27-2023 End: 12-27-2023 Patient encounter procedure BABY FORMULA WORKER Darwin Joneserwood Work Phone: [facility] [place] Work Phone: Start: 12-27-2023 End: 12-27-2023 ambulatory BABY FORMULA WORKER Darwin Anaya Easterwood Work Phone: [facility] Work Phone: Start: 12-24-2023 End: 12-24-2023 ambulatory BABY FORMULA WORKER Darwin Anaya Easterwood Work Phone: [facility] Work Phone: Start: 12-24-2023 End: 12-24-2023 Patient encounter procedure BABY FORMULA WORKER Darwin Joneserwood Work Phone: [facility] Work Phone: Start: 11-30-2023 End: 11-30-2023 Patient encounter procedure BABY FORMULA WORKER Darwin Joneserwood Work Phone: [facility] [place] Work Phone: Start: 11-30-2023 End: 11-30-2023 ambulatory BABY FORMULA WORKER Darwin Anaya Easterwood Work Phone: [facility] Work Phone: Start: 11-25-2023 End: 11-25-2023 ambulatory BABY FORMULA WORKER Darwin Jaclyn Easterwood Work Phone: [facility] Work Phone: Start: 11-25-2023 End: 11-25-2023 Patient encounter procedure BABY FORMULA WORKER Darwin Easterwood Work Phone: [facility] Work Phone: Start: 11-18-2023 End: 11-19-2023 ambulatory RUBY WHITTINGTON Facility:[facility] Start: 11-18-2023 End: 11-18-2023 Patient encounter procedure Ruby Whittington MD Work Phone: Endocrinology Comment on above: 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); Class 2 obesity; Irregular menstruation, unspecified; Female infertility; Calculus of kidney Start: 11-01-2023 End: 11-01-2023 Patient encounter procedure SHIRLEY Jonestodd Work Phone: [facility] [place] Work Phone: Start: 11-01-2023 End: 11-01-2023 ambulatory SHIRLEY Anaya Robertermacy Work Phone: [facility] Work Phone: Start: 10-20-2023 End: 10-20-2023 Patient encounter procedure SHIRLEY Orosco Robert Work Phone: [facility] Work Phone: Start: 10-01-2023 End: 10-01-2023 Patient encounter procedure SHIRLEY Darwin Jones Work Phone: [facility] [place] Work Phone: Start: 10-01-2023 End: 10-01-2023 ambulatory SHIRLEY Anaya Robert Work Phone: [facility] Work Phone: Start: 09-29-2023 End: 09-29-2023 ambulatory Tyrone Rock Facility:[facility] Start: 09-29-2023 End: 09-29-2023 Patient encounter procedure Tyr[place] [facility] Start: 09-21-2023 End: 09-21-2023 ambulatory Darwin Easterwood Other [facility] Other Start: 09-21-2023 Office outpatient vi sit 15 minutes Darwin Roberterwood [facility] Start: 08-30-2023 Patient encounter procedure BABY FORMULA WORKER Darwin Jones Work Phone: [facility] Start: 08-25-2023 End: 08-25-2023 ambulatory Darwinkenan Joneserwood Other [facility] Other Start: 08-25-2023 Follow-up encounter Darwin Joneserwood [facility] Start: 08-25-2023 End: 08-25-2023 Patient encounter procedure BABY FORMULA WORKER Drawin Jones Work Phone: [facility] Work Phone: Start: 07-23-2023 End: 07-23-2023 Patient encounter procedure BABY FORMULA WORKER Darwin Jones Work Phone: [facility] Work Phone: Start: 07-16-2023 Telephone encounter Ruby sneed MD Work Phone: Endocrinology Comment on above: Appointment Start: 06-23-2023 End: 06-23-2023 ambulatory Darwin Jones Other [facility] Other Start: 06-23-2023 Office outpatient vi sit 15 minutes Darwin Roberterwood [facility] Start: 06-08-2023 End: 06-08-2023 ambulatory FRANCY GAN Facility:[facility] Start: 06-08-2023 End: 06-08-2023 Patient encounter procedure Francy Gan PA-C Work Phone: Otolaryngology Comment on above: Dysphagia, unspecifi ed type (Primary Dx); LPRD (laryngopharyngeal reflux disease) Start: 05-26-2023 End: 05-26-2023 ambulatory Darwin Easterwood Other [facility] Other Start: 05-26-2023 [facility] Start: 05-06-2023 End: 05-06-2023 ambulatory BABY FORMULA WORKER Darwin Jones Work Phone: [facility] Work Phone: Start: 05-06-2023 End: 05-06-2023 Patient encounter procedure BABY FORMULA WORKER Darwin Jones Work Phone: [facility] [place] Work Phone: Start: 04-28-2023 End: 04-28-2023 [facility] Other Start: 04-28-2023 Office outpatient vi sit 40 [facility] Start: 04-16-2023 End: 04-16-2023 ambulatory [facility] Other [facility] Other Start: 04-16-2023 Encounter for genera l adult medical examination without abnormal [facility]: 04-16-2023 Periodic preventive med est patient 18-39 yrs Darwin [facility] Start: 04-08-2023 End: 04-08-2023 ambulatory BABY FORMULA WORKER Darwin Jones Work Phone: [facility] Work Phone: Start: 04-08-2023 End: 04-08-2023 Departed Referred BABY FORMULA WORKER Darwin Larapewamo Work Phone: [facility]-Employee Benefit Screening Start: 03-22-2023 End: 03-22-2023 Emergency department patient visit Gabriel Curtis [facility] Start: 03-22-2023 End: 03-22-2023 Emergency department patient visit SHIRLEY Jones Work Phone: [facility]-Emergency Room Work Phone: Start: 02-28-2023 End: 02-28-2023 Departed Referred SHIRLEY Jones Work Phone: [facility]-Employee Benefit Screening Start: 02-28-2023 End: 02-28-2023 ambulatory SHIRLEY Jones Work Phone: [facility] Work Phone: Start: 02-28-2023 End: 02-28-2023 Patient encounter procedure SHIRLEY Jones Work Phone: [facility]-Corporate [facility] [address] Work Phone: Start: 12-10-2022 End: 12-10-2022 ambulatory SHIRLEY Jones Work Phone: [facility] Work Phone: Start: 12-10-2022 End: 12-10-2022 Patient encounter procedure SHIRLEY Jones Work Phone: [facility]-Lab [facility] [place] Work Phone: Start: 12-09-2022 End: 12-09-[address] NONE LISTED REQUEST Facility: Start: 12-08-2022 End: 12-08-2022 ambulatory Ofelia Hester Other [facility] Other Start: 12-08-2022 Encounter by ruben limon Ofelia Mir [facility] Start: 10-22-2022 End: 10-22-2022 ambulatory Lilly uLke Other [facility] Other Start: 10-22-2022 Telephone encounter Lilly Luke [facility] Start: 10-16-2022 End: 10-16-2022 ambulatory SHIRLEY Jones Work Phone: [facility] Work Phone: Start: 10-16-2022 End: 10-16-2022 Patient encounter procedure SHIRLEY Jones Work Phone: [facility] [place] Work Phone: Start: 10-15-2022 End: 10-15-2022 ambulatory Ofelia ler Other [facility] Other Start: 10-15-[address] [facility] Start: 10-05-2022 Registered Recurring SHIRLEY Jones Work Phone: [facility]-Weight Management Work Phone: Start: 10-05-2022 ([facility] Weight Management f/u [facility] Start: 10-05-2022 End: 10-05-2022 ambulatory Ofelia Missler Other [facility] Other Start: 09-28-2022 ambulatory Ruby Whittington MD Work Phone: Endocrinology Comment on above: Synthroid Start: 09-02-2022 ([facility]) Weight Management f/u [facility] Start: 09-02-2022 End: 09-02-2022 ambulatory Ofelia Missler Other [facility] Other Start: 08-25-2022 ([facility]) PHUONG Insujatha joy Provider Lilly Luke [facility] Start: 08-25-2022 End: 08-25-2022 ambulatory Lilly Luke Other [facility] Other Start: 07-31-2022 ([facility]) Weight Management f/u Ofelia Hester [facility] Start: 07-31-2022 End: 07-31-2022 ambulatory Ofelia Hester Other [facility] Other Start: 07-20-2022 End: 07-20-2022 ambulatory Lilly Fitt Other [facility] Other Start: 07-20-2022 Telephone encounter Lilly Neymarsonia [facility] Start: 07-14-2022 End: 07-14-2022 Patient encounter procedure Ruby Whittington MD Work Phone: Endocrinology Comment on above: 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); Class 2 obesity Start: 07-08-2022 End: 07-08-2022 ambulatory Ofelia Hester Other [facility] Other Start: 07-08-2022 Telephone encounter Ofelia Hester [facility] Start: 06-17-2022 ([facility]/U) [facility] Start: 06-17-2022 End: 06-17-2022 ambulatory Ofelia Hester Other [facility] Other Start: 06-04-2022 End: 06-04-2022 ambulatory Sima Ross Other [facility] Other Start: 06-04-2022 Office outpatient vi sit 15 minutes Sima Ross [facility] Start: 05-27-2022 End: 05-27-2022 ambulatory Lilly Neymart Other [facility] Other Start: 05-27-2022 IBT FOR OBESITY GROU P 2-10 30M Lilly Neymarsonia [facility] Start: 05-25-2022 End: 05-25-2022 ambulatory Darwin Easterwood Other [facility] Other Start: 05-25-2022 Telephone encounter Geoffrey murphy MD Work Phone: Endocrinology Comment on above: Appointment (LVM for patient that appt on 05/[address] George has been rescheduled to 07/08 at [facility] with Dr. Robertson. sending mail reminder as well. ) Start: 05-19-2022 End: 05-19-2022 ambulatory Ofelia Hester Other [facility] Other Start: 05-19-2022 Telephone encounter Ofelia Hester [facility] Start: 05-18-2022 End: 05-18-2022 ambulatory Ofelia Hester Other [facility] Other Start: 05-18-2022 Nutrition therapy [facility]her [facility] Start: 04-21-2022 End: 04-21-2022 ambulatory Darwin Easterwood Other [facility] Other Start: 04-21-2022 Telephone encounter Darwin Easterwood [facility] Start: 04-17-2022 End: 04-17-2022 ambulatory Darwin Easterwood Other [facility] Other Start: 04-17-2022 Office outpatient vi sit 25 minutes Darwin Easterwood [facility] Start: 04-15-2022 End: 04-15-2022 ambulatory Darwin Easterwood Other [facility] Other Start: 04-15-2022 Telephone encounter Darwin Easterwood [facility] Start: 04-14-2022 End: 04-14-2022 Patient encounter procedure PHYSICIAN [facility] [place] Start: 04-10-2022 End: 04-10-2022 ambulatory Lilly Luke Other [facility] Other Start: 04-10-2022 Telephone encounter Lilly Luke [facility] Start: 04-06-2022 End: 04-06-2022 Patient encounter procedure PHYSICIAN NO [facility] [place] Start: 02-24-2022 End: 02-24-2022 ambulatory Darwin Roberterwood Other [facility] Other Start: 02-24-2022 Telephone encounter Darwin Easterwood [facility] Start: 02-18-2022 End: 02-18-2022 Emergency department patient visit Fazal Corrales [facility] Start: 02-18-2022 End: 02-18-2022 ambulatory Darwin Easterwood Other [facility] Other Start: 02-18-2022 Office outpatient vi sit 25 minutes Darwin Easterwood [facility] Start: 02-18-2022 [facility] Start: 02-13-2022 End: 02-13-2022 Patient encounter procedure PHYSICIAN NO [facility]-Ultrasound [facility] [place] Start: 02-11-2022 End: 02-11-2022 ambulatory Darwin Roberterwood Other [facility] Other Start: 02-11-2022 Office outpatient ne w 45 minutes [facility] Start: 02-10-2022 End: 02-10-2022 Departed Referred PHYSICIAN NO [facility]-Employee Benefit Screening Start: 09-04-2021 Chart Update Unknown Unknown [facility] 250 DO Work Phone: Start: 09-03-2021 Office outpatient ne w 45 minutes Unknown Unknown [facility] 600 DO Work Phone: Procedures Date Procedure [...] Diagnostic ultrasoun d of gravid uterus Darwin Jonestodd WATSON Work Phone: Start: 06-21-2024 H/O: section History of C-s ection Hayden Reilly MD Work Phone: Start: 06-12-2024 Urnls dip stick/tabl et rgnt non-auto w/o micrscp Brain Seamus DO Work Phone: Start: 05-10-2024 Urnls dip stick/tabl et rgnt non-auto w/o micrscp Brain Seamus DO Work Phone: Start: 04-20-2024 URETHRITIS/DISCHARGE PLUS VAGINITIS (HTRX) Rbain Seamus DO Work Phone: Start: 04-20-2024 Urnls [...] for malignant neoplasm of cervix Pap Smear [facility] Start: 03-23-2026 DTaP,Tdap and Td Vaccines (7 - Td or Tdap) DTaP,Tdap and Td Vaccines (7 - Td or Tdap) [facility] Start: 03-23-2026 Urine microalbumin profile [facility] Start: 2025 Tobacco [email or web address] Start: 09-19-2024 End: 09-19-2024 Patient encounter procedure [facility] Comment on above: Arrived Start: 09-07-2024 End: 09-07-2024 Patient encounter procedure [...] 08/31/2024 (Approximate), Expi res: 07/31/2025 Start: 08-25-2024 [facility] Start: 08-23-2024 End: 08-23-2024 Patient encounter procedure 08/23/2024 11:00 AM EST Routine [facility] [address] [place] [id number] DO [address] [place] [address] Arrived [facility] Comment on above: Arrived Start: 08-02-2024 End: 08-02-2024 Telemedicine consultation with patient 08/02/2024 9:00 AM EST Telemedicine [facility] [place] [address] [place] [address] Darcy Enriquez MD [address], [address] [place] [address] [facility] Start: 07-27-2024 End: 07-27-2024 Patient encounter procedure 07/27/2024 11:00 AM EST Appointment [facility] [place] [address] [facility] [place] [phone] [facility] [place] Start: 07-21-2024 End: 07-21-2024 Patient encounter procedure 07/21/2024 10:00 AM EST Appointment [facility] [address] [place] [address] [facility] Start: 07-11-2024 End: 07-11-2025 CBC panel - Blood by Automated count CBC Lab Routine 22 weeks gestation of Second trimester Expected: 07/11/2024 (Approximate), Expires: 07/11/2025 [facility] Work Phone: Comment on above: Expected: 07/11/2024 (Approximate), Expi res: 07/11/2025 Start: 07-11-2024 End: 07-11-2025 Measurement of glucose 1 hour after glucose challenge for glucose tolerance test Glucose tolerance, 1 hour Lab Routine 22 weeks gestation of Second trimester Diabetes mellitus screening Expected: 07/11/2024 (Approximate), Expires: 07/11/2025 [facility] Comment on above: Expected: 07/11/2024 (Approximate), Expi res: 07/11/2025 Start: 07-11-2024 End: 07-11-2024 Patient encounter procedure 07/11/2024 10:10 AM EST Routine [facility] [address] [place] [phone] [address], DO [address] [place] [address] [facility] Start: 06-28-2024 [facility] Start: 2024 End: 2025 Echo complete W/O contrast Echo complete W/O contrast Echocardiography Routine 20 weeks gestation of History of pericarditis Expected: 2024, Expires: 2025 [facility] Work Phone: Comment on above: Expected: 2024, Expires: Start: 2024 End: 2024 Patient encounter procedure [facility] [place] Start: 06-12-2024 End: 10-13-2024 Alpha fetoprotein, maternal Alpha fetoprotein, maternal Lab Routine Second trimester 18 weeks gestation of Expected: 06/12/2024 (Approximate), Expires: 10/13/2024 [facility] Comment on above: Expected: 06/12/2024 [...] AM EDT Routine [facility] [address] [place] [phone] [address], DO [address] [place], [place] [id number] Arrived [facility] Comment on above: Arrived Start: 06-07-2024 End: 06-07-2024 Patient encounter procedure 06/07/2024 10:50 AM EDT Routine [facility] [address] [place] [phone] [address], DO [address] [place] [address] [facility] Start: 05-10-2024 End: 05-10-2024 Patient encounter procedure [facility] Comment on above: Arrived Start: 04-20-2024 End: 04-20-2024 Patient encounter procedure [facility] Comment on above: Arrived Start: 04-16-2024 COVID-19 Vaccine ( season) COVID-19 Vaccine ( season) [facility] Start: 04-16-2024 Influenza vaccination [facility] [...] 08-16-2023 Behavioral Health Screening Behavioral Health Screening [facility] Start: 05-06-2023 US scan of thyroid US thyroid [facility] Start: 04-16-2023 Covid-19 Vaccine () Covid-19 Vaccine () [facility] Start: 04-16-2023 Influenza vaccination Influenza Vaccine (#1) [facility] Start: 04-08-2023 [facility] Start: 08-16-2022 DEPRESSION ASSESSMENT DEPRESSION ASSESSMENT [facility] Start: 04-16-2022 Influenza vaccination INFLUENZA (#1) [facility] Start: 08-16-2021 DEPRESSION ASSESSMENT DEPRESSION ASSESSMENT [facility] Start: 01-10-2021 COVID-19 VACCINE (3 - Booster) COVID-19 VACCINE (3 - Booster) [facility] Start: 2017 PAP TESTING PAP TESTING [facility] Start: 2017 Screening for malignant neoplasm of cervix [facility] Start: 2015 DTaP,Tdap and Td Vaccines (1 - Tdap) DTaP,Tdap and Td Vaccines (1 - Tdap) [facility] Start: 2015 Urine microalbumin profile DTAP,TDAP,TD (1 - Tdap) [facility] Start: 2014 Adult BMI Screening Adult BMI Screening [facility] Start: 2014 ANNUAL PCP TEAM CHRONIC DISEASE VISIT ANNUAL PCP TEAM CHRONIC DISEASE VISIT [facility] Start: 2014 HEPATITIS C SCREENING HEPATITIS C SCREENING [facility] Start: 2014 Hepatitis C screening Hepatitis C Screening [facility] Start: 2014 HIV SCREENING HIV SCREENING [facility] Start: 2014 HIV screening HIV Screening [facility] Start: 2010 PEDS TO ADULT TRANSITION ANNUAL ASSESSMENT PEDS TO ADULT TRANSITION ANNUAL ASSESSMENT [facility] Start: 2008 Depression Screening Depression Screening [facility] Start: 2008 PEDS TO ADULT TRANSITION INITIAL DISCUSSION PEDS TO ADULT TRANSITION INITIAL DISCUSSION [facility] Start: 2008 Tobacco Screening Tobacco Screening [facility] Start: 2007 HPV VACCINE (1 - 2-dose series) HPV VACCINE (1 - 2-dose series) [facility] Start: 2005 HPV Vaccine (1 - 2-dose series) HPV Vaccine (1 - 2-dose series) [facility] Start: 1996 COVID-19 VACCINE (#1) COVID-19 VACCINE (#1) [facility] Start: 1996 HEPATITIS B (1 of 3 - 3-dose series) HEPATITIS B (1 of 3 - 3-dose series) [facility] Bacteria identified in Urine by Culture Urine culture Microbiology Routine Missed menses Ordered: 04/07/2024 [facility] Comment on above: Ordered: 04/07/2024 CBC W Auto Differential panel - Blood CBC and differential Lab Routine Missed menses Ordered: 04/07/2024 [facility] Comment on above: Ordered: 04/07/2024 CHLAMYDIA TRACHOMATI S (GENITO/STI) CHLAMYDIA TRACHOMATIS (GENITO/STI) Lab Routine First trimester Screen for STD (sexually transmitted disease) Vaginal discharge Ordered: 04/20/2024 [facility] Comment on above: Ordered: 04/20/2024 Cytology Cervical or vaginal smear or scraping study Pap Smear Pathology and Cytology Routine Well woman exam with routine gynecological exam Ordered: 04/20/2024 [facility] Work Phone: Comment on above: Ordered: 04/20/2024 Hemoglobin A1c/Hemoglobin.total in Blood Hemoglobin A1c Lab Routine Missed menses Ordered: 04/07/2024 [facility] Comment on above: Ordered: 04/07/2024 Hepatitis B virus surface Ag [Presence] in Serum or Plasma by Immunoassay Hepatitis B surface antigen Lab Routine Missed menses Ordered: 04/07/2024 [facility] Comment on above: Ordered: 04/07/2024 Hepatitis C virus Ab [Presence] in Serum or Plasma by Immunoassay Hepatitis C antibody Lab Routine Missed menses Ordered: 04/07/2024 [facility] Comment on above: Ordered: 04/07/2024 HIV-1/HIV-2 antigen/antibody combination immunoassay HIV-1 and HIV-2 antibodies Lab Routine Missed menses Ordered: 04/07/2024 [facility] Comment on above: Ordered: 04/07/2024 Neisseria gonorrhoea e DNA [Presence] in Unspecified specimen by LAUREN with probe detection Neisseria gonorrhea DNA probe, direct Lab Routine First trimester Screen for STD (sexually transmitted disease) Vaginal discharge Ordered: 04/20/2024 [facility] Comment on above: Ordered: 04/20/2024 Patient referral [facility] Work Phone: Progesterone [Mass/volume] in Serum or Plasma [facility] Progesterone [Mass/volume] in Serum or Plasma [facility] Progesterone [Mass/volume] in Serum or Plasma [facility] Progesterone [Mass/volume] in Serum or Plasma [facility] Progesterone [Mass/volume] in Serum or Plasma [facility] Reagin Ab [Presence] in Serum by RPR RPR Lab Routine Missed menses Ordered: 04/07/2024 [facility] Comment on above: Ordered: 04/07/2024 Rubella antibody, IgG Rubella an tibody, IgG Lab Routine Missed menses Ordered: 04/07/2024 [facility] Comment on above: Ordered: 04/07/2024 SURESWAB(R) ADVANCED VAGINITIS PLUS, TMA SURESWAB(R) ADVANCED VAGINITIS PLUS, TMA Pathology and Cytology Routine First trimester Screen for STD (sexually transmitted disease) Vaginal discharge Ordered: 04/20/2024 [facility] Comment on above: Ordered: 04/20/2024 Thyrotropin [Units/volume] in Serum or Plasma TSH Lab Routine Missed menses Ordered: 04/07/2024 [facility] Comment on above: Ordered: 04/07/2024 [facility] Transthoracic [facility] End: 07-07-2024 XR MODIFIED BARIUM SWALLOW W SPEECH THERAPY XR MODIFIED BARIUM SWALLOW W SPEECH THERAPY Radiology Routine Dysphagia, unspecified type 1 Occurrences starting 06/08/2023 until 07/07/2024 [facility] Work Phone: Comment on above: 1 Occurrences starting 06/08/2023 until 07/07/2024 [facility] Work Phone: [facility] Immunizations Immunization Date Immunization Notes Care Provider Vaishali yo 05-21-2023 influenza virus vaccine, unspecified formulation 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 06-15-2022 influenza, injectabl e, 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, contains 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 Darwin Easterwood Other [facility] Work Phone: 06-15-2022 influenza virus vaccine, unspecified formulation Francy Gan PA-C Work Phone: [facility] 06-15-2021 influenza nasal, unspecified formulation Ruby Whittington MD Work Phone: [facility] Work Phone: 06-15-2021 influenza virus vaccine, unspecified formulation [place] 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 06-15-2021 influenza, injectabl e, 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, contains 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 Darwin Easterwood Other [facility] Work Phone: 05-15-2021 influenza nasal, unspecified formulation Ruby Whittington MD Work Phone: [facility] Work Phone: 05-15-2021 influenza virus vaccine, unspecified formulation [facility] 05-15-2021 influenza, high dose seasonal, 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-free Unknown Unknown [facility] Work Phone: 11-15-2020 Pfizer-BioNTech COVID-19 Vacc 30 MCG/0.3ML Intramuscular Suspension Unknown Unknown [facility] 11-12-2020 COVID-19 vaccine, unknown product (NON-US) Ruby Whittington MD Work Phone: [facility] Work Phone: 10-24-2020 Pfizer-BioNTech COVID-19 Vacc 30 MCG/0.3ML Intramuscular Suspension Unknown Unknown [facility] 03-23-2016 tetanus toxoid, reduced diphtheria toxoid, and acellular pertussis vaccine, adsorbed Unknown Unknown [facility] Work Phone: 03-23-2016 varicella virus vaccine Unknown Unknown [facility] Work Phone: 03-01-2002 diphtheria, tetanus toxoids and acellular pertussis vaccine, unspecified formulation Unknown Unknown [facility] Work Phone: 03-01-2002 DTaP, unspecified formulation [facility] 03-01-2002 measles, mumps and rubella virus vaccine Unknown Unknown [facility] Work Phone: 03-01-2002 poliovirus vaccine, inactivated Unknown Unknown [facility] Work Phone: 03-01-2002 poliovirus vaccine, unspecified formulation [facility] 04-20-2001 hepatitis B vaccine, pediatric or pediatric/adolescent dosage Unknown Unknown [facility] Work Phone: 01-03-1998 diphtheria, tetanus toxoids and acellular pertussis vaccine, unspecified formulation Unknown Unknown [facility] Work Phone: 01-03-1998 DTaP, unspecified formulation Tyrone Polancopsey [facility] 09-18-1997 measles, mumps and rubella virus vaccine Unknown Unknown [facility] Work Phone: 09-18-1997 varicella virus vaccine Unknown Unknown [facility] Work Phone: 03-30-1997 hepatitis B vaccine, pediatric or pediatric/adolescent dosage Unknown Unknown [facility] Work Phone: 1996 diphtheria, tetanus toxoids and acellular pertussis vaccine, unspecified formulation Unknown Unknown [facility] Work Phone: 1996 DTaP, unspecified formulation Tyrone Polanc[facility] 1996 trivalent poliovirus vaccine, live, oral Unknown Unknown [facility] Work Phone: 1996 diphtheria, tetanus toxoids and acellular pertussis vaccine, unspecified formulation Unknown [facility] Work Phone: 1996 DTaP, unspecified formulation Tyrone Pol[facility] 1996 haemophilus influenz ae type b vaccine, conjugate unspecified formulation Unknown [facility] Work Phone: 1996 Hib, unspecified formulation Tyrone Polanc[facility] 1996 trivalent poliovirus vaccine, live, oral Unknown Unknown [facility] Work Phone: 1996 diphtheria, tetanus toxoids and acellular pertussis vaccine, unspecified formulation Unknown Unknown [facility] Work Phone: 1996 DTaP, unspecified formulation Tyrone Pranav [facility] 1996 diphtheria, tetanus toxoids and acellular pertussis vaccine, unspecified formulation Unknown Unknown [facility] Work Phone: 1996 DTaP, unspecified formulation [facility] [facility] 1996 haemophilus influenz ae type b vaccine, conjugate unspecified formulation Unknown Unknown [facility] Work Phone: 1996 Hib, unspecified formulation [facility]one [facility] 1996 measles, mumps and rubella virus vaccine Unknown Unknown [facility] Work Phone: 1996 varicella virus vaccine Unknown Unknown [facility] Work Phone: 1996 diphtheria, tetanus toxoids and acellular pertussis vaccine, unspecified formulation Unknown Unknown [facility] Work Phone: 1996 DTaP, unspecified formulation [facility]one [facility] 1996 haemophilus influenz ae type b vaccine, conjugate unspecified formulation Unknown Unknown [facility] Work Phone: 1996 hepatitis B vaccine, pediatric or pediatric/adolescent dosage Unknown Unknown [facility] Work Phone: 1996 Hib, unspecified formulation [facility] Care 1996 trivalent poliovirus vaccine, live, oral Unknown Unknown [facility] Work Phone: 1996 hepatitis B vaccine, pediatric or pediatric/adolescent dosage Unknown Unknown [facility] Work Phone: Payers Date Payer Category Payer Self-pay [id number] 2023 Self-pay [id number] 2022 Private Health Insurance [id number] 2021 Unknown 2019 [facility] Care - O [id number] 02.315 1996 Unknown [id number] 2.16.84 0.1.681611.3.579.2.593 1996 Unknown [id number] 2.16.8 40.1.701412.3.579.2.727 1996 Unknown [id number] 2.16.8 40.1.465372.3.579.2.727 1996 Unknown [id number] 2.16.8 40.1.985245.3.579.2.727 1996 Unknown [id number] 2.16.840.1.176421.3.579.2.1286 1996 Unknown [id number] 2.16.840.1.758385.3.579.2.1286 1996 Unknown [id number] 2.16.840.1.107015.3.579.2.1286 1996 Unknown [id number] 2.16.840.1.657320.3.579.2.1286 1996 Unknown [id number] 2.16.8 40.1.376718.3.579.2.727 1996 Unknown [id number] 2.16.8 40.1.119592.3.579.2.727 1996 Unknown [id number] 2.16.8 40.1.681394.3.579.2.727 1996 Unknown [id number] 2.16.8 40.1.580875.3.579.2.727 1996 Unknown [id number] 2.16.8 40.1.004363.3.579.2.727 1996 Unknown [id number] 2.16.8 40.1.544993.3.579.2.727 1996 Unknown [id number] 2.16.8 40.1.641466.3.579.2.727 1996 Unknown [id number] 2.16.8 40.1.840700.3.579.2.727 1996 Unknown [id number] 2.16.84 0.1.358069.3.579.2.1258 1996 Unknown [id number] 2.16.84 0.1.044301.3.579.2.1258 1996 Unknown [id number] 2.16.84 0.1.799776.3.579.2.1258 1996 Unknown [id number] 2.16.84 0.1.921782.3.579.2.1258 1996 Unknown [id number] 2.16.84 0.1.170654.3.579.2.1258 1996 Unknown [id number] 2.16.84 0.1.012794.3.579.2.1258 1996 Unknown [id number] 2.16.84 0.1.921111.3.579.2.1258 1996 Unknown [id number] 2.16.84 0.1.532835.3.579.2.1259 1959 Unknown [id number] Unknown [id number] Unknown [id number] Unknown [id number] 2.16.8 40.1.345437.3.579.2.531 Unknown [id number] 2.16.8 40.1.968648.3.579.2.531 Unknown [id number] 2.16.8 40.1.234956.3.579.2.531 Unknown [id number] 2.16.8 40.1.318268.3.579.2.531 Unknown [id number] 2.16.8 40.1.330961.3.579.2.531 Unknown [id number] 2.16.8 40.1.786523.3.579.2.531 Unknown [id number] 2.16.8 40.1.472499.3.579.2.531 Unknown [id number] 2.16.8 40.1.046430.3.579.2.531 Unknown [id number] 2.16.8 40.1.516935.3.579.2.531 Unknown [id number] 2.16.8 40.1.366494.3.579.2.531 Unknown [id number] 2.16.8 40.1.899892.3.579.2.531 Unknown [id number] 2.16.8 40.1.329812.3.579.2.531 Unknown [id number] 2.16.8 40.1.251494.3.579.2.531 Social History Date Type Detail Facility Start: 07-14-2022 End: 03-21-2024 No alcohol use No alcohol use [place] [address] DO Work Phone: Start: 12-29-2020 End: 08-04-2023 Tobacco smoking status GAIS Never smoked tobacco (finding) [facility] Start: 1995 Sex Assigned At Female [facility] Start: 07-14-2022 End: 03-21-2024 [facility] Assigned At [facility] [place] Other Tobacco smoking status Never [facility] Tobacco smoking status GAIS Tobacco smoking consumption unknown [facility] Start: 1995 Sex Assigned At Not on file [facility] Start: 04-17-2022 End: 07-14-2022 Exposure to SARS-CoV-2 (event) Not sure [facility] Start: 07-14-2022 End: 2024 Tobacco use and exposure Smokeless tobacco non-user [facility] Start: 07-14-2022 End: 09-07-2024 Alcohol intake Lifetime non-drinker (finding) [facility] Start: 07-13-2022 Gender identity Identifies as female gender (finding) [facility] Start: 02-16-2024 [facility] Start: 03-19-2015 End: 09-15-2024 Sex Female (finding) [employer] [facility] Comment on above: Denies Tobacco smoking status No Smoking Status Entered [facility] NEGATED: Highlighted rowStart: NINF History of tobacco use Passive smoker [facility] Medical Equipment Procedure Code Equipment Code Equipment Origin al Text Equipment Identifier Dates Pen [place] 31G X 5 MM Start: 05-18-2022 Goals Date Patient Goal Desired Activity /State Personal health goal Functional Status Date Assessment Result Facility 09-06-2024 Functional Status N/A [facility] 09-05-2024 Functional Status N/A [facility] 09-05-2024 Functional Status N/A [facility] 03-18-2024 Functional Status N/A [facility] 09-29-2023 Functional Status N/A [facility] 03-22-2023 Functional Status N/A [facility] 02-18-2022 Functional Status N/A [facility] Clinical Notes 01-14-2022 to 09-07-2024 [...] H/O calculus of kidney during Tiffani's disease ([facility]) 02/2022 History of Obesity (BMI 30-39.9) Pericarditis HISTORY PAST MEDICAL HISTORY SOCIAL HISTORY Past Medical History: Diagnosis Date Anxiety Blood type, Rh positive H/O calculus of kidney during Tiffani's disease ([facility]) 02/2022 History of Obesity (BMI 30-39.9) [...] of: HIPOLITO Shore documented in this encounter [facility] 09-07-2024 Note History and Physical HOSPITAL REGULATIONS: [...] scheduled. Rogelio Nath M.D. leeroy Dictated: 09/05/2024 [id number] Transcribed: 09/05/2024 [facility] Comment on above: Result Comment: Elec tronically Signed By: Pham GALLAGHER, Rogelio Robins\.br\Date and Time Signed: 09/07/24 08:38 EST 09-06-2024 Hospital Discharg e instructions Patient Education 09/06/2024 16:15:07 Concussion, Adult, Slrq-mr-Ovxg Concussion, Adult A concussion is a brain [...] if you are dizzy. General instructions Take uczb-zos-mzvahms and prescription medicines only as told by your doctor. Avoid taking strong pain medicines (opioids) after a concussion. Do not drink alcohol until your doctor says you can. Watch your symptoms and tell other people to do the same. Other problems can occur after a concussion. Tell your cab worker, teachers, school nurse, school counselor, lacrosse coach, or puppy trainer about your injury and symptoms. Tell [...] the National Suicide Prevention Lifeline at or 261. This is open 24 hours a day. Text the Crisis Text Line at 581358. This information is not intended to replace advice given to you by your health care provider. Make sure you discuss any questions you have with your health care provider. Document Revised: 12/25/2022 Document Reviewed: 12/25/2022 [employer]ate Patient Education 2023 [employer]. Follow Up Care 09/06/2024 13:58:27 With:DARWIN JONES Address: [address] [facility] [place] [phone] Business (1) When:09/09/2024 16:14:40 Comments:Call to schedule a follow-up appointment with your primary care provider. Use Zofran as needed for nausea/vomiting. Return to the ED with any new or worsening symptoms. [facility] 09-06-2024 Note ED Patient Education Note [...] you are dizzy. General instructions ??? Take issm-uvv-zzsvjzp and prescription medicines only as told by your doctor. ??? Avoid taking strong pain medicines (opioids) after a concussion. ??? Do not drink alcohol until your doctor says you can. ??? Watch your symptoms and tell other people to do the same. Other problems can occur after a concussion. ??? Tell your cab worker, teachers, school nurse, school counselor, lacrosse coach, or puppy trainer about your injury and symptoms. Tell [...] You have any (more content not included)... [facility] 09-06-2024 Evaluation + Plan note Extrac hamilton from: Title:ED Note Author:Nay BECKHAM, Lashon Younger te:09/06/24 JEFFERSON (headache) (R51.9: Headac he, unspecified) [...] date 09/06/24 15:25:00 EST, 09/06/24 15:25:00 EST [facility] [id number] NoteDischarge Instructions Given Worsening The following Patient Education Materials have been given to the patient: ~~ EducationMaterial[facility] Evaluation + Plan note Extracted from: [...] Diagnostic Tests Pending * Urine Culture 09/05/24 [facility] 01-21-2025 Hospital Discharge instructions Patient Education 09/05/2024 04:35:45 Syncope, Adult, Zbmo-pn-Gxxw Syncope, Adult Syncope is when you pass [...] you until you feel better. Medicines Take jxvp-jxo-arqcbnh and prescription medicines only as told by [...] provider. Document Revised: 12/11/2021 Document Reviewed: 12/11/2021 [employer]etate Patient Education 2023 [employer]. 09/05/2024 04:35:45 Nausea and Vomiting, Adult, Xyzs-tr-Wpsx Nausea and Vomiting, Adult Nausea is feeling [...] fruit juice). ?Low-calorie sports drinks. Eat bland, xbcx-yc-eqypmr foods in small amounts as you are able, such as: ?Bananas. ?Applesauce. ?Rice. ?Low-fat (lean) meats. ?Caruthers. ?Crackers. Avoid drinking fluids that have a lot of sugar or caffeine in them. This includes energy drinks, sports drinks, and soda. Avoid alcohol. Avoid spicy or fatty foods. General instructions Take npeg-ijr-tpgsbph and prescription medicines only as told by your doctor. Drink enough fluid to keep your pee (urine) pale yellow. Wash your hands often with soap and water for at least 20 seconds. If you cannot use soap and water, use hand entry level financial analyst. Make sure that everyone in your [...] your doctor about eating and drinking. Take vbcz-syn-znayvcb and prescription medicines only as told by your doctor. Contact your doctor if your symptoms get worse or you have new symptoms. Keep all follow-up visits. This information is not intended to replace advice given to you by your health care provider. Make sure you discuss any questions you have with your health care provider. Document Revised: 02/06/2022 Document Reviewed: 02/06/2022 Monetate Patient Education 2023 [employer]. 09/05/2024 04:35:45 Diarrhea, Adult, Etvv-hn-Jpiy Diarrhea, Adult Diarrhea is when you pass [...] regular sports drinks. ?Avoid alcohol. Eat bland, minb-fy-fonwwj foods in small amounts as you are able. These foods include: ?Bananas. ?Applesauce. ?Rice. ?Low-fat (lean) meats. ?Caruthers. ?Crackers. Avoid spicy or fatty foods. Medicines Take dgny-dbx-lsepyrr and prescription medicines only as told by your doctor. If you were prescribed antibiotics, take them as told by your doctor. Do not stop taking them even if you start to feel better. General instructions Wash your hands often using soap and water for 20 seconds. If soap and water are not available, usehand entry level financial analyst. Others in your home should wash [...] provider. Document Revised: 01/19/2023 Document Reviewed: 01/19/2023 Monetate Patient Education 2023 [employer]. 09/05/2024 04:35:45 Dehydration, Adult, Nwmm-py-Bvdi Dehydration, Adult Dehydration is a condition in [...] or sea (high in altitude). The thinner, short goods drier air causes more fluid loss. [...] of fat or sugar. General instructions Take pqez-baq-pjltcck and prescription medicines only as told by [...] provider. Document Revised: 03/01/2023 Document Reviewed: 03/01/2023 Monetate Patient Education 2023 [employer]. 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 Way for further evaluation management. Please return to the ED for any new or worsening symptoms. [facility] [phone] NoteProgress Note-Nurse @1607 OB RN arrived in patient room in [...] about admission for further evaluation on OB unit.[facility]01-21-2025 NoteED Patient Education Note Gastroenterology Nausea [...] ? Low-calorie sports drinks. ??? Eat bland, lebv-kc-mrvicx foods in small amounts as you are able, such as: ? Bananas. ? Applesauce. ? Rice. ? Low-fat (lean) meats. ? Caruthers. ? Crackers. ??? Avoid drinking fluids that have a lot of sugar or caffeine in them. This includes energy drinks, sports drinks, and soda. ??? Avoid alcohol. ??? Avoid spicy or fatty foods. General instructions ??? Take iohd-rqs-wccybml and prescription medicines only as told by your doctor. ??? Drink enough fluid to keep your pee (urine) pale yellow. ??? Wash your hands often with soap and water for at least 20 seconds. If you cannot use soap and water, use hand entry level financial analyst. ??? Make sure that everyone in [...] doctor about eating and drinking. ??? Take letg-sex-vwfhzoj and prescription medicines only as told by your doctor. ??? Contact your doctor if your symptoms get worse or you have new symptoms. ??? Keep all follow-up visits. This information is not intended to replace advice given to you by your health care provider. Make sure you discuss any questions you have with your health care provider. Document Revised: 02/06/2022 Document Reviewed: 02/06/2022 Monetate Patient Education ? 2023 Elsevier Inc. Infectious Disease Diarrhea, Adult Diarrhea is [...] Take an ORS (ora (more content not included)...[facility] 08-25-2024 Evaluation note* Diagnosis Onset Date Resolution Status Admit Date Class 2 obesity with body ma ss index (BMI) of 37.0 to 37.9 in adult acute August 25 11:56am Tiffani's disease acute 2024 11:56am Hypothyroidism acute August 252024 11:56am Mild left ventricular hypertrophy acute August 25 11:56am Second trimester acute August 25, 2024 11:56am [facility] Work Phone: 1(810) 385-296401-08-2025 History of Present illness Narrative* Aleisha Lois, SHIP ENGINES OPERATING ENGINEER - 08/23/2024 11:00 AM EST Reason for [...] H/O calculus of kidney during Tiffani's disease ([facility]) 02/2022 History of Obesity (BMI 30-39.9) [...] nursing note reviewed. Exam conducted with a pharm spec present. Vitals: Estimated body mass index is 40.16 kg/m as calculated from the following: Height as of 1/10/24: 5' 7 . Weight as of this [...] of: Brain Way DO documented in this encounterCitizens Memorial [id number] History of Present illness Narrative* Aleisha Abreu [...] H/O calculus of kidney during Tiffani's disease ([facility]) 02/2022 History of Obesity (BMI 30-39.9) [...] nursing note reviewed. Exam conducted with a pharm spec present. Vitals: Estimated body mass index is [...] of: Brain Way DO documented in this encounterCitizens Memorial [id number] History of Present illness Narrative* Laura Herron [...] male Have you been seen here at [facility] in a previous ? No Recent ER visits or hospitalizations? no Bring blood sugar log or meter with you today? (Please bring them with you for every visit at [facility]) n/a Flu vaccine (Jun-October)? Yes Any [...] effusion. Also she was then evaluated by pediatric oncologist who told her that she had pericarditis and that resolved with a taking Motrin however she did not had an echocardiogram. Saw Dr. Coronado. 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 Yes NotIn System Ref Prov nt682-iqpy-incer acid ( 19) 29 mg iron- 1 [...] would recommend she establishes care with a multiple spindle router operator for it to be further evaluated 7. [...] Please refer her locally to see a multiple spindle router operator for the incidental finding on the CT [...] Hayden Reilly MD, FACOG (she/hers) Maternal- Medicine [facility] [address] [facility] [address] [place] [address] This document was created with [employer] technology. Though I make every effort to review the dictation as it is transcribed, on occasion the spoken word can be misinterpreted by the technology leading to inappropriate words, phrases, or sentences. This note is addressed to the requesting provider as a consultation for clinical guidance. Specificmedical abbreviations are occasionally used and those are generally approved by the [place]?Board of?Obstetrics and?Gynecology?as well as?Lauryn s abbreviations. The above plan of care was based solely on the diagnoses for which a consultation was requested. ?More frequent testing may be indicated based on her other medical/obstetrical conditions. The management of other or medical conditions is beyond the scope of requested consultation and will c ontinue to be followed by the primary grain weigher or primary care provider. Note to patient: The 21st Century Cures Act makes medical notes like [...] opinion of the practitioner. documented in this encounterLouis [facility] PerspecSys [id number] Radiology Diagnostic study noteSELECT [facility] Main [place] [address] [place] [id number] Ultrasound Report Signed Patient: Tawnya Herring MR#: [id number] : 1995 Acct:[id number] Age/Sex: 28 / F ADM Date: 4 Loc: Room: Type: [facility] Attending Dr: Brain Way DO Ordering [...] cervical length. Impression dictated by: Zay Norton Jr. DRhonda06/22/2024 4:00 PM Dictation Location: [employer] Tech: Rae De Paz Transcribed By: AGUILAR 06/22/24 1600 Dictated By: Zay Norton Jr, DO 06/22/24 1552 Signed By: 06/22/24 1600 [facility]10-28-2024 History of Present illness Narrative * HIPOLITO [...] H/O calculus of kidney during Tiffani's disease ([facility]) 02/2022 History of Obesity (BMI 30-39.9) Pericarditis HISTORY PAST MEDICAL HISTORY SOCIAL HISTORY Past Medical History: Diagnosis Date Anxiety Blood type, Rh positive H/O calculus of kidney during Tiffani's disease ([facility]) 02/2022 History of Obesity (BMI 30-39.9) [...] pericarditis post last . We will send [facility] referral Follow Up: Patient is to return to office in 4 week for routine OB appointment. Documented by HIPOLITO Sohre on behalf of: Brain Way DO documented in this encounterCitizens Memorial [id number] Evaluation note* Diagnosis Onset Date Resolution Status Admit Date Well adult exam noneactive May 11, 2024 10:46am [facility] Work Phone: 1(324) 199-317709-25-2024 History of Present illness Narrative* Aleisha Abreu [...] H/O calculus of kidney during Tiffani's disease ([facility]) 02/2022 History of Obesity (BMI 30-39.9) Pericarditis HISTORY PAST MEDICAL HISTORY SOCIAL HISTORY Past Medical History: Diagnosis Date Anxiety Blood type, Rh positive H/O calculus of kidney during Tiffani's disease ([facility]) 02/2022 History of Obesity (BMI 30-39.9) [...] nursing note reviewed. Exam conducted with a pharm spec present. Vitals: Estimated body mass index is [...] of: Brain Way DO documented in this encounterCitizens Memorial [id number] History of Present illness Narrative* Coral Rg [...] H/O calculus of kidney during Tiffani's disease ([facility]) 02/2022 History of Obesity (BMI 30-39.9) Pericarditis HISTORY PAST MEDICAL HISTORY SOCIAL HISTORY Past Medical History: Diagnosis Date Anxiety Blood type, Rh positive H/O calculus of kidney during Tiffani's disease ([facility]) 02/2022 History of Obesity (BMI 30-39.9) Pericarditis [...] nursing note reviewed. Exam conducted with a pharm spec present. Vitals: Estimated body mass index is [...] obtained without difficulty and patient was given msAFP order to have obtained. Patient advised to take ASA 81mg. Orders Placed This Encounter Procedures CHLAMYDIA TRACHOMATIS (GENITO/STI) Neisseria gonorrhea DNA probe, direct POCT urinalysis dipstick manually resulted Follow Up: Patient is to return to our office in 4 weeks for routine OB appointment Documented by Coral Rg LPN on behalf of: Brain Way DO documented in this encounterCitizens Memorial [id number] History of Present illness Narrative* Thelma Elizabeth [...] H/O calculus of kidney during Tiffani's disease ([facility]) 02/2022 History of Obesity (BMI 30-39.9) [...] or undercooked meat, and stay away from [facility]. Patient has also been advised to [...] by: Thelma Elizabeth LPN documented in this encounterCitizens Memorial HealthcareJigdpmhlhi94-81-3766 Hospital Discharge instructions Patient Education 03/18/2024 12:15:03 [...] provider. Document Revised: 01/31/2021 Document Reviewed: 01/31/2021 Monetate Patient Education 2022 [employer]. 03/18/2024 12:15:03 Subchorionic Hematoma Subchorionic Hematoma A [...] provider. Document Revised: 04/28/2021 Document Reviewed: 04/28/2021 [employer]ate Patient Education 2022 [employer]. Follow Up Care 03/18/2024 08:08:01 With:Rogelio Nath Address: [address], [facility] [address] [place] [address]- Business (1) When:03/21/2024 11:54:39 With:DARWIN JONES Address: [address] [place] [address]- [phone] Business (1) When:Within 3 Day(s) [facility] 08-03-2024 NoteED Patient Education Note Obstetrics [...] provider. Document Revised: 01/31/2021 Document Reviewed: 01/31/2021 Monetate Patient Education ? 2022 [employer]. Subchorionic Hematoma A hematoma is a collection of blood outside of the blood vessels. A subchorionic hematoma is a collection of blood between the outer wall of the embryo (chorion) and the inner wall of the uterus. This condi (more content not included)...[facility]04-04-2024 NoteHNO ID: [id number] Author: RUBY WHITTINGTON MD Service: ? Author [...] 1 year. Ruby Whittington MD [facility]St[facility] History of Present illness Narrative* Ruby [...] Whittington MD Endocrinology Staff documented [facility] Instructions* Patient Instructions* Odalis Greene - 11/18/2023 7:58 AM EDT Thank you for choosing the [facility] Department of Endocrinology, Diabetes and Metabolism. Did you know that you need to call 48 hours in advance of your scheduled visit, if you are unable to make your appointment? The Endocrinology and Metabolism [place] thanks you for your commitment, because patients not showing to their appointment results in a lost opportunity for patients to receive [facility] health care at the [facility]. To Cancel an appointment, please choose one of the following: - Call the Appointment Call Center at [phone] - From [employer], Go to Appointments - Cancel Appts If cancelling, consider your need to reschedule to prevent further delays in your care. To Schedule an appointment, please choose one of the following: - Call the Appointment Call Center at [phone] - From [employer], Go to Appointments - Request an Appt documented in this encounterKet[facility]02-14-2024 Hospital Discharge instructions Patient Education 09/29/2023 11:05:01 [...] numbers. This can be done either in [place]ian ([place] or metric measurements. Note that charts and online BMI calculators are available to help you find your BMI quickly and easily without having to do these calculations yourself. To calculate your BMI in [place] ([place] measurements: 1.Measure your weight in pounds [...] Centers for Disease Control and Prevention: www.cdc.gov [place] Heart Association: www.heart.org National Heart, Lung, and Blood [place]: www.nhlbi.nih.gov Summary Body mass index (BMI) is a number that is calculated from a person's weight and height. BMI may help estimate how much of a person's weight is composed of fat. BMI can help identify thosewho may be at higher risk for certain medical problems. BMI can be measured using Mauritanian measurements or metric measurements. BMI charts are used to identify whether you are underweight, normal weight, overweight, or obese. This information is not intended to replace advice given to you by your health care provider. Make sure you discuss any questions you have with your health care provider. Document Revised: 04/24/2020 Document Reviewed: 03/01/2020 Monetate Patient Education 2022 [employer]. 09/29/2023 11:04:59 Sinus Infection, Adult Sinus Infection, [...] saline washes). ?Medicines that treat allergies (antihistamines). ?Lesk-yze-rtkzksn pain relievers. 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 Do not smoke. Avoid being around [...] provider. Document Revised: 07/07/2022 Document Reviewed: 07/07/2022 Monetate Patient Education 2022 [employer]. Follow Up Care 09/29/2023 09:12:00 With:DARWIN JONES CNP Address: [facility] [facility] [place] [address]- When: Unknown [facility] 02-06-2024 Evaluation note* Encounter [...] is required on scripts in the state [facility]. Sep, Other *Progress note was completed with the assistance of voice recognition software for dictation purposes. Please excuse any grammatical errors that were not corrected during review process. [facility] Other 01-10-2024 Evaluation note* Encounter Date Diagnosis [...] that were not corrected during review process. [facility] Other 12-01-2023 Miscellaneous Notes* Telephone Encounter - Kenan Gomez - 07/16/2023 9:39 AM EST LVM to let patient know their appt has been rescheduled with Dr. Whittington. [facility]* Encounter Date Diagnosis Assessment Notes [...] comfortable prescribing this medication at this time. [facility] Other 10-24-2023 NoteHNO ID: [id number] Author: Francy Gan PA-C Service: ? Author Type: Physician Quality Control Coordinator Type: Progress Notes Filed: 06/08/2023 2:53 PM [...] will be in touch with results via [employer] HPI: Tawnya is a 27 year old [...] [facility]: [facility] of Present illness Narrative* Francy [...] will be in touch with results via [employer] HPI: Tawnya is a 27 year old [...] Level: 3 - Low [facility] Instructions* Patient Instructions* Francy Gan PA-C - 06/08/2023 2:16 PM EDT Continue the omeprazole for another 1.5 months documented in this [facility]10-11-2023 Evaluation note* Encounter Date Diagnosis [...] that were not corrected during review process. [facility] Other 09-13-2023 Evaluation note* Encounter Date Diagnosis [...] Discussed short term 8 week course vs. correction management. Discussed pros and cons of taking [...] that were not corrected during review process. [facility] Other 09-01-2023 Evaluation note* Encounter Date Diagnosis [...] SCANNED INTO PATIENT CHART AND FAXED TO [employer]. Apr, Other We did briefly discussed the [...] that were not corrected during review process. [facility] Other 08-08-2023 Hospital Discharge instructions Patient Education 03/22/2023 22:52:44 Urinary Tract Infection, Adult, Xqlg-ss-Qmyi Urinary Tract Infection, Adult A urinary tract [...] Follow these instructions at home: Medicines Take rmfu-uvk-brnpoaz and prescription medicines only as told by [...] provider. Document Revised: 03/14/2021 Document Reviewed: 03/14/2021 Monetate Patient Education 2022 [employer]. Follow Up Care 03/22/2023 19:54:03 With:DARWIN JONES Address: [facility] [place] [address]- [phone] Business (1) When:03/25/2023 Comments:Follow-up with your primary care provider in 3 to 5 days. If symptoms worsen, do not improve, or new symptoms arise please report back to emergency department for further evaluation. [facility]08-07-2023 Evaluation + Plan note Diagnostic Tests Pending * Urine Culture 03/22/23 [facility]03-02-2023 Evaluation note* Encounter Date Diagnosis Assessment Notes Treatment Notes Treatment Clinical Notes Oct, Nausea & vomiting (ICD-10 - R11.2) [facility] Other 02-20-2023 Evaluation note* Encounter Date Diagnosis [...] Encounter for weight management (ICD-10 - Z76.89) [facility] Other 02-13-2023 Miscellaneous Notes* Addendum Note - Rbuy Whittington MD - 09/28/2022 2:21 PM ESTAddended [...] daily. Ruby Whittington MD documented in this encounterK[facility] Evaluation note* Encounter Date Diagnosis Assessment Notes [...] Encounter for weight management (ICD-10 - Z76.89) [facility] Other 01-10-2023 Evaluation note* Encounter Date Diagnosis [...] as inspiration Patient set the following goals: [facility] Other 12-16-2022 Evaluation note* Encounter Date Diagnosis [...] E06.3) She was recently seen by an substation inspector at [facility] for elevated TSH. She is currently on adequate supplementation and will follow up with them. Jul, Daytime sleepiness (ICD-10 - R40.0) Continue to work on good sleep hygiene and control factors that she can.This could also improve with additional water intake. Jul, Mild depression (ICD-10 - F32.9) Jul, Encounter for weight management (ICD-10 - Z76.89) [facility] Other 11-29-2022 History of Present illness Narrative* [...] Thyroid problem. 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 [address] [place] [address] documented in this encounterK[facility]11[facility]29-2022 Instructions* Patient Instructions* Soo Begum Ma - 07/14/2022 8:46 AM EST Thank you for choosing the [facility] Department of Endocrinology, Diabetes and Metabolism. Did you know that you need to call 48 hours in advance of your scheduled visit, if you are unable to make your appointment? The Endocrinology and Metabolism [place] thanks you for your commitment, because patients not showing to their appointment results in a lost opportunity for patients to receive [facility] at the [facility]. To Cancel an appointment, please choose one of the following: - Call the Appointment Call Center at [phone] - From [employer], Go to Appointments - Cancel Appts If cancelling, consider your need to reschedule to prevent further delays in your care. To Schedule an appointment, please choose one of the following: - Call the Appointment Call Center at [phone] - From [employer], Go to Appointments - Request an Appt documented in this encounterK[facility]11-[facility]-2022 Evaluation note* Encounter Date Diagnosis Assessment Notes [...] samples and titrate her up slowly until [facility] insurance kicks in in August. We [...] will discuss at later date if needed. [facility] Other 10-20-2022 Evaluation note* Encounter Date Diagnosis [...] Pt understood and agreed to tx plan. [facility] Other 10-12-2022 Evaluation note* Encounter Date Diagnosis [...] patient set personal goal using given handout. [facility] Other 10-10-2022 Miscellaneous Notes* Telephone Encounter - Linn Hancock - 05/25/2022 2:35 PM EDT LVM for patient that appt on 05/[address] George has been rescheduled to 07/08 at [facility] with Dr. Robertson. sending mail reminder as well. 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 Her Mallampati is not [...] of a comprehensive approach to obesity management [facility] Other 09-02-2022 Evaluation note* Encounter Date Diagnosis [...] to start the weight management program at [facility] in the coming months.Nothing further needed [...] that were not corrected during review process. [facility] Other 07-07-2022 Hospital Discharge instructions Patient Education [...] Follow these instructions at home: Medicines Take wpzn-qsw-nozuuoy and prescription medicines only as told by [...] 04/27/2002 Document Revised: 08/05/2018 Document Reviewed: 05/14/2017 Monetate Patient Education 2020 [employer]. 02/18/2022 22:49:49 Migraine Headache Migraine Headache A [...] Follow these instructions at home: Medicines Take fdbx-pmd-tbwnnfe and prescription medicines only as told by your health care provider. Ask your health care provider if the medicine prescribed to you: ?Requires you to avoid driving or using heavy machinery. ?Can cause constipation. You may need to take these actions to prevent or treat constipation: ?Drink enough fluid to keep your urine pale yellow. ?Take ewck-imj-bewcngn or prescription medicines. ?Eat foods that are [...] 08/02/2006 Document Revised: 11/24/2019 Document Reviewed: 09/14/2019 Monetate Patient Education 2019 [employer]. Follow Up Care 02/18/2022 20:32:17 With:DARWIN ROBERT Address: [address] [place] [address] [place] [address] [phone] Business (1) When:Within 3 Day(s) [facility]07-06-2022 Evaluation + Plan noteExtracted from: Title:ED [...] voices understanding and is agreeable to plan. [facility]07-06-2022 Evaluation note* Encounter Date Diagnosis Assessment [...] and remind her of lab draw at [facility]. Feb, Thyromegaly (ICD-10 - E01.0) Discussed [...] that were not corrected during review process. [facility] Other 07-01-2022 History general Narrative - Reported* Type Description Date Medical History Anxiety Medical History pericardi tis- Resolved cardiology signed off Medical History Kidney stones during Medical History Tiffani's disease February 2022 Medical History Abnormal thyroid ult rasound February 2022 work-up pending by ENT Surgical History 2019 Surgical History Cystoscopy 05/2021 Surgical History 2020 Hospitalization History See surgical hx [facility] Other 07-01-2022 History general Narrative - Reported* Type Description Date Medical History Anxiety Medical History pericardi tis- Resolved cardiology signed off Medical History Kidney stones during Medical History Tiffani's disease February 2022 Medical History Abnormal thyroid ult rasound February 2022 work-up pending by ENT Medical History Parathyroid adenoma Surgical History 2019 Surgical History Cystoscopy 05/2021 Surgical History 2020 Hospitalization History See surgical hx [facility] Other 06-29-2022 Evaluation note* Encounter Date Diagnosis [...] that were not corrected during review process. 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 [facility]* Diagnosis 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 [facility]* Diagnosis Dysphagia, unspecified type- Primary LPRD (laryngopharyngeal reflux disease) Other diseases of larynx [facility]* Diagnosis Onset Date Resolution Status Obesity [facility] Work Phone: evaluation note* Diagnosis 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0 to 37.9 in adult [facility] Work Phone: evaluation note* Diagnosis Onset Date Resolution Status Class 2 obesity with body ma ss index (BMI) of 37.0 to 37.9 in adult acute Class 2 obesity with body ma ss index (BMI) of 37.0 to 37.9 in adult [facility] Work Phone: evaluation note* Diagnosis Onset Date Resolution Status Class 2 obesity with body ma ss index (BMI) of 37.0 to 37.9 in adult [facility] Work Phone: evaluation note* Diagnosis Onset Date Resolution Status Well adult exam noneactive [facility] Work Phone: evaluation note* Diagnosis Second trimester state, incidental 18 weeks gestation of Screening, , for anatomic survey Encounter for anatomic survey [facility] Diagnosis 20 weeks gestation of - Primary Tiffani's disease Chronic lymphocytic thyroiditis 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 Hx of preeclampsia, prior , currently with other poor obstetric history Elevated BP without diagnosis of hypertension History of pericarditis with history of section, antepartum History of macrosomia in infant in prior , currently with other poor obstetric history Obesity affecting , antepartum, unspecified obesity type Depression affecting [facility] Diagnosis 22 weeks gestation of Second trimester state, incidental Nausea and vomiting during Diabetes mellitus screening Screening for diabetes mellitus documented in this encounter [facility]* Diagnosis History of pericarditis- Primary Mild concentric left ventricular hypertrophy (LVH) 25 weeks gestation of documented [facility]* Diagnosis Missed menses documented in this encounter [facility] HealthcareEvaluation [facility]* Diagnosis First trimester state, incidental Well woman exam with routine gynecological exam Routine gynecological examination Screen for STD (sexually transmitted disease) Screening examination for venereal disease Vaginal discharge Leukorrhea, not specified as infective documented in this encounter [facility] HealthcareEvaluation note* Diagnosis Second trimester state, incidental documented in this encounter [facility] HealthcareEvaluation note* Diagnosis 29 weeks gestation of Third trimester state, incidental Gastroesophageal reflux in documented in this encounter [facility] HealthcareEvaluation note* Diagnosis Third trimester state, incidental 31 weeks gestation of size inconsistent with dates documented in this encounter [facility] HealthcareHistory general Narrative - Reported* Type Description [...] Surgical History 2020 Hospitalization History See surgical [facility] Other [facility] [facility] [employer] general Narrative - Reported* Type Description Date [...] Surgical History 2020 Hospitalization History See surgical [facility] Other [facility] general Narrative - Reported* Type Description Date Medical History pericardi tis- Resolved cardiology signed off Medical History Parathyroid adenoma Medical History Anxiety Medical History Tiffani's disease Medical History Depression Medical History Obesity Medical History GERD (gastroesophageal reflux di sease) Medical History Hypothyroidism Medical History Thyromegaly Medical History Daytime sleepiness Medical History Pharyngeal dysphagia Medical History Nephrolithiasis Medical History cardiomyopathy Surgical History 2018 Surgical History Cystoscopy 05/2021 Surgical History 2020 Hospitalization History See surgical hx [facility] Other History of Present illness Narrative* Patient [...] no other testing or intervention appears necessary. [facility] 600 DO Work Phone: Hospital course Narrative No data available for this section [facility]ructionsNot on filedocumented in this encounter [facility] SystemInstructions* Attachments The following attachments cannot be sent through Care Everywhere. * Preeclampsia (Mauritanian) documented in this encounterPro[facility] SystemInstructionsNot on file documented in this encounterC[facility] SystemProgress note No data available for this section [facility] ([facility])* Reason Dr. 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) Referral Organization [facility] Family Shai Moreira Referring Provider First Name Darwin Referring Provider Last Name Roberttodd Referring Provider Specialty Nurse Red king Referred Provider Specialty Endocrinolog y Referral Priority Routine [facility] Other Reason for referral (narrative)* Diagnostic Procedure Only (Routine) - Pending Review Specialty Diagnoses / Procedures Referred By Clint scott Referred To Contact XR IMAGING Diagnoses Dysphagia, unspecified type Procedures XR MODIFIED BARIUM SWALLOW W SPEECH THERAPY RADIOLOGIC EXAM SWALLOW FUNCTION CONTRAST STUDY Francy Gan PA-C [address] [place] [address] [place] [id number] Referral ID Status Reason Start Date Expiration Date Visits Requested Visits Authorized [id number] Pending Review Auto-Generat ed Referral 3 07/07/2024 1 1 [facility] Chief Complaint TAWNYA HERRING is being seen [...] 1 2:51pm z34.92 z3a.18 z86.39 z34.92 June 132023 7:51am Chief Complaint Admit Date z36.89 June [...] 1 1:56am Mild left ventricular hypertrophy Januar y 2024 11:56am Second trimester August 25, 2024 [...] Dysphagia, unspecifi ed type (R13.10) Referral Organization [facility] Referring Provider First Name Darwin Referring Provider Last Name [facility] Referring Provider Specialty Nurse Pract itioner Referred Organization [facility] Referred Address [address] [place], [place],[address] Referred Provider Specialty Ear, Nose an d Throat Referral Priority Routine Reason ABNORMAL US OF THYRO ID Newly discovered [employer] Diagnosis 1 Thyromegaly (E01.0) [facility] Referring Provider First Name Darwin Referring Provider Last Name [facility] Referring Provider Specialty Nurse Pract itioner Referred Provider Specialty Ear, Nose an d Throat Referral Priority Routine Additional Source Comments INFORMATION SOURCE (unrecogn ized section and content) DATE CREATED AUTHOR 09/04/2021 [employer] DATE CREATED AUTHOR AUTHOR'S ORGANIZ ATION 12/18/2022 [facility] DATE CREATED AUTHOR AUTHOR'S ORGANIZ ATION 11/22/2023 [facility] DATE CREATED AUTHOR AUTHOR'S ORGANIZ ATION 03/20/2024 [facility] DATE CREATED AUTHOR AUTHOR'S ORGANIZ ATION 08/05/2024 [facility] DATE CREATED AUTHOR AUTHOR'S ORGANIZ ATION 09/06/2024 [facility] DATE CREATED AUTHOR AUTHOR'S ORGANIZ ATION 09/08/2024 [facility] DATE CREATED AUTHOR AUTHOR'S ORGANIZ ATION 09/13/2024 [facility] DATE CREATED AUTHOR AUTHOR'S ORGANIZ ATION 09/14/2024 [facility] DATE CREATED AUTHOR AUTHOR'S ORGANIZ ATION 09/16/2024 [facility] DATE CREATED AUTHOR AUTHOR'S ORGANIZ ATION 09/21/2024 [facility] EPIC Care Teams (unrecognized sec tion and content) [...] [address] Attending Provider Active Start: [facility] 2023 End: November 01, 2023 Team Status: Inactive Member Role Status Dates Darwin Jones APRN Primary Care Pr ovider, Attending Provider Active Start: November 25, 2023 End: November 25, 2023 Team Status: Inactive Member Role Status Dates Darwin Jones APRN Primary Care Provider Active Start: November 30, 2023 End: November 30, [address] Attending Provider Active Start: [facility] 2023 End: November 30, 2023 Team Status: Active Member Role Status Dates Provider Conversion Attending Provider Active St art: August 30, 2023 Team Status: Inactive Member Role Status Dates Darwin Jones APRN Primary Care Provider Active Addi Ortega DO [facility] Attending Provider Active Team Status: Inactive Member [...] Primary Care Provider Active Addi Ortega DO [facility] Attending Provider Active Team Status: Active Member Role Status Dates PHYSICIAN NO FAMILY Primary Care Provider Active Team Status: Inactive Member Role Status Dates Darwin Jones APRN Primary Care Provider, Attend ing Provider Active Team Status: Inactive Member Role Status Dates Darwin Jones APRN Primary Care Provider Active Saad Valera DO Attending Provider Active Process Improvement Specialist Relationship Specialty Start Date End Date Darwin Jones EDUCATION SPECIALIST [address] [facility] [address] [place] [address] Referring Family Medicine 04/22/22 Process Improvement Specialist Relationship Specialty Start Date End Date Darwin Jones, EDUCATION SPECIALIST [address] [facility] [address] [place] [address] Referring Family Medicine 04/22/22 Team Status: Inactive Member Role Status Dates Darwin Jones APRN Primary Care Provider Active Jeovanny Quiros DO Emergency Provider Active Process Improvement Specialist Relationship Specialty Start Date End Date Darwin Jones CNP [address] [address] Referring Family Medicine 04/22/22 Process Improvement Specialist Relationship Specialty Start Date End Date Darwin Jones CNP [address] [facility] [address] [address] [address] Referring Family Medicine 04/22/22 Team Status: Inactive Member Role Status Dates Darwin Jones APRN Attending Provider Active Start: July 23, 2023 End: July 23, 2023 Team Status: Inactive Member Role Status Dates Darwin Jones APRN Attending Provider Active Start: August 25, 2023 End: August 25, 2023 Process Improvement Specialist Relationship Specialty Start Date End Date Darwin Jones CNP [address] [address] Referring Family Medicine 04/22/22 Team Status: Inactive [...] 2023 End: December 27, [address] , DO Attending Provider Active Start : December 27, 2023 End: December 27, 2023 Team Status: Inactive Member Role Status Dates Darwin Jones APRN Primary Care Provider Active Start: January 24, 2024 End: January 24, [address] , DO Attending [...] End: April 06, 2024 Addi PERES DO [facility] Attending Provider Active Start: April 06, [...] May 24, 2024 End: May 24, 2024 Process Improvement Specialist Relationship Specialty Start Date End Date No Pcp, [place] [address] PCP - General Family Medicine 08/19/19 Process Improvement Specialist Relationship Specialty Start Date End Date No Pcp, [place] [address] PCP - General Family Medicine 08/19/19 Team [...] June 28, 2024 End: June 28, 2024 Process Improvement Specialist Relationship Specialty Start Date End Date No Pcp, [place] [address] PCP - General Family Medicine 08/19/19 Team [...] August 25, 2024 End: August 25, 2024 aMry Ellen Bruce MD Attending Provider Active Sta [...] George has been rescheduled to 07/08 at [facility] with Dr. Robertson. sending mail reminder [...] or prosecute any alcohol or drug abuse patient.[facility]In the event this information is protected by the Federal Confidentiality of Alcohol and Drug Abuse Patient Records regulations: The Federal rules restrict any use of the information to criminally investigate or prosecute any alcohol or drug abuse patient.[facility] DaytonIn the event this information is protected by the Federal Confidentiality of Alcohol and Drug Abuse Patient Records regulations: The Federal rules restrict any use of the information to criminally investigate or prosecute any alcohol or drug abuse patient.[facility] DaytonIn the event this information is protected by the Federal Confidentiality of Alcohol and Drug Abuse Patient Records regulations: The Federal rules restrict any use of the information to criminally investigate or prosecute any alcohol or drug abuse patient.[facility] DaytonIn the event this information is protected by the Federal Confidentiality of Alcohol and Drug Abuse Patient Records regulations: The Federal rules restrict any use of the information to criminally investigate or prosecute any alcohol or drug abuse patient.[facility] DaytonIn the event this information is protected by the Federal Confidentiality of Alcohol and Drug Abuse Patient Records regulations: The Federal rules restrict any use of the information to criminally investigate or prosecute any alcohol or drug abuse patient.[facility] FOR RECORDS PERTAINING TO PATIENTS WHO ARE [...] THE PRIMARY CLINICAL RECORDS. [facility] [employer] [facility]. provides no warranty or guarantee of the accuracy or completeness of information in this document.
--- NOTE | 2024-09-22 10:57 | US_ITS ---
[address] [address] Patient Name: BARBY HERRING MRN: [id number] date: 1995 Sex: F Assigned Patient Location: [facility] Current Patient Location: [facility] Accession/Order Number: [id number] Exam Date: 09/22/2024 11:07 Report Date: 09/22/2024 11:35 At the request of: GAMAL ADAN Procedure: US OB BPP w non-stress EXAMINATION: US OB BPP w non-stress HISTORY: EXCESSIVE GROWTH AFFECTING O36.63X1 COMPARISON: No relevant comparison available. TECHNIQUE: Ultrasound biophysical profile was performed in the radiology department. non-reactive stress testing was performed by nursing staff in the birthing center. FINDINGS: BREATHING MOVEMENTS: 2 GROSS BODY MOVEMENTS: 2 TONE: 2 QUALITATIVE AMNIOTIC FLUID VOLUME: 2 PRESENTATION: CEPHALIC HEART RATE: 130.43 bpm AMNIOTIC FLUID VOLUME: 21.7 cm GESTATIONAL AGE: 33 weeks 2 days US/US OB BPP w non-stress IMPRESSION: Total biophysical profile score: 8 Electronically authenticated by: AZALIA URBINA Date: 09/22/2024 11:35
[2024-09-22 11:24] VITALS: BP 133/73; PULSE 100
== END 2024-09-22 12:00 | disposition home or self-care (01) ==
LOC: US 01:53 → FBC 10:53
PROVIDERS: PCP Nurse Practitioner Family; Visit Provider Obstetrics & Gynecology
DX: O36.63X0 Maternal care for excessive fetal growth, third trimester, not applicable or unspecified (principal); O36.63X1 Maternal care for excessive fetal growth, third trimester, fetus 1; Z3A.33 33 weeks gestation of pregnancy
CPT/HCPCS: 76818

== ENCOUNTER 2024-09-25 01:23 | Outpatient (OUT) | payer OTHER, SELFPAY ==
--- OUTSIDE RECORDS SUMMARY | 2024-09-25 01:27 | XMS_ITS | CCD ---
Author Organization [facility] Care Team Providers Care Hospitality Director Name Role Phone Unknown, Unknown Unavailable Unavailable Unavailable Unavailable NO FAMILY, PHYSICIAN Primary Care Provider Unava ilable DO Addi Ortega Attending Provider Darwin Jones Unavailable DARWIN JONES Primary Care Physician Lilly Luke Unavailable SHIRLEY Jones Primary Care Provider [phone] SHIRLEY Jones Attending Provider DO Saad Valera Attending Provider [phone] Ofelia Hester Unavailable [facility] AMIE Darwin Unavailable Sima Ross Unavailable [facility] AMIE Darwin Unavailable [phone] SHIRLEY Jones Primary Care Provider SHIRLEY Hester Attending Provider SHIRLEY Jones Primary Care Provider SHIRLEY Hester Attending Provider Brain Way Attending Provider REQUEST, DR HOBSON LISTED Primary Care Unavaila ble SEAMUS ., DR YEUNG Attending Unavailable SEAMUS ., DR YEUNG Consulting Unavailable SEAMUS ., DR YEUNG Admitting Unavailable SHIRLEY Jones Primary Care Provider DO Addi Ortega Attending Provider [phone] [facility] Provider DO Jeovanny Quiros Emergency Provider [phone] [facility] Provider DO Addi Ortega Attending Provider [facility] Primary Care Provider Brain Way Attending Provider [facility] Primary Care Provider Brain Way Attending Provider RUBY WHITTINGTON Attending Unavailable FRANCY GAN Attending Unavailable [facility] SHIRLEY Anaya Primary Care Provider Brain Way Attending Provider [phone] [facility] Care Provider DO Brain Way Attending Provider [phone] [place] Attending Unavailable Gabriel Curtis Attending Unavailable [place] Attending Unavailable [facility] Primary Care Provider DO Brain Way Attending Provider [facility] DO Addi PERES Attending Provider [facility] Primary Care Provider DO Brain Way Attending Provider [phone] [facility] Primary Care Provider DO Brain Way Attending Provider [phone] Unavailable Primary Care Provider Unavailabl e No Pcp, No Pcp Primary Care Provider Unavailabl e [facility] Darwin WATSON Primary Care Provider [facility] Addi SELLERS Attending Provider Brain aWy DO Attending Provider SEAMUS, BRAIN R Referring Unavailable NO PCP, NO PCP Primary Care Unavailable HAYDEN REILLY P Attending Unavailable NO PCP, NO PCP Primary Care Unavailable HAYDEN REILLY P Referring Unavailable DARCY ENRIQUEZ Attending Unavailable ESAMUS, BRAIN R Referring Unavailable NO PCP, NO PCP Primary Care Unavailable [place] [employer], Darwin Anaya Primary Care Provider Brain Way DO Attending Provider Janis GALLAGHER, Mary Ellen Attending Provider DO Gabriel Curtis Attending Unavailable [place] Attending Unavailable Rogelio Nath Attending Unavailable Rogelio Nath Admitting Unavailable Rogelio Nath Attending Unavailable Rogelio Nath Admitting Unavailable Flash Franco Attending Unavailable MYA FINCH Attending Unavailable SEAMUS, BRAIN Attending Unavailable SEAMUS, BRAIN Attending Unavailable SEAMUS, BRAIN Attending Unavailable SEAMUS, BRAIN Attending Unavailable SEAMUS, BRAIN Attending Unavailable SEAMUS, BRAIN Attending [facility]available [facility] [employer] [employer], Darwin Anaya Primary Care Provider Willow Way DOy Attending Provider [phone] Darwin Jones Primary Care Unavailable Mary Ellen Bruce Attending Unavailable Janis Mary Ellen Admitting Unavailable Mary Ellen Bruce Admitting Unavailable Darwin Jones Primary Care Unavailable Mary Ellen Bruce Attending Unavailable Seamus, Brain Attending Unavailable Seamus, Brain Admitting Unavailable [place] Primary Care Unavailable Seamus, Brain Admitting Unavailable Seamus, Brain Attending Unavailable [place] Primary Care Unavailable Seamus, Rbain Admitting Unavailable Seamus, Brain Attending Unavailable [place] Primary Care Unavailable Seamus, Brain Admitting Unavailable Seamus, Brain Attending Unavailable [place] Primary Care Unavailable Seamus, Brain Admitting Unavailable Seamus, Brain Attending Unavailable [place] Primary Care Unavailable Seamus, Brain Admitting Unavailable Seamus, Brain Attending Unavailable [place]win Primary Care Unavailable Seamus, Brain Admitting Unavailable Seamus, Brain Attending Unavailable [facility], Darwin Anaya Primary Care Unavailable Seamus, Brain Admitting Unavailable Seamus, Brain Attending Unavailable [facility], Darwin Anaya Primary Care Unavailable [facility], Addi P Attending Unavailable [facility], Addi P Admitting Unavailable [facility], Darwin Anaya Primary Care Unavailable Seamus, Brain Admitting Unavailable [facility], Darwin J Primary Care Unavailable Seamus, Brain Attending Unavailable Seamus, Brain Admitting Unavailable [facility], Darwin J Primary Care Unavailable Seamus, Brain Attending Unavailable Seamus, Brain Attending Unavailable Seamus, Brain Admitting Unavailable [facility], Darwin J Primary Care Unavailable Allergies Allergy Classification Reported Allergen(s) Allergy Type Date of Onset Reaction(s) Facility (6 sources) No Known Medication Allergies; Translations: [No Known Medication Allergies] Propensity to adverse reactions (disorder) [facility] Repository Medications Current Medications Medication Drug Class(es) [...] tablet (2 sources) Opioid Agonist Start: 06-03-2021 [place] 325 mg-5 mg oral tablet 2 tab(s), [...] # 20 tab(s), Refills(s) 0, Pharmacy: [facility], 170.2, cm, 09/29/23 10:44:00 EST, Height/Length Dosing, 112, kg, 09/29/23 10:44:00 EST, Weight Dosing Start Date: 09/29/23 Stop Date: 10/09/23 Status: Ordered aspirin 81 mg delayed release oral tablet (20 sources) Platelet Aggregation Inhibitor, Nonsteroidal Anti-inflammatory Drug Start: 05-11-2024 take 1 tablet by mouth once daily Aspirin 81 mg tablet,delayed release [...] # 28 cap(s), Refills(s) 0, Pharmacy: [facility], 170.2, cm, 03/22/23 20:14:00 EDT, Height/Length Dosing, 113.5, kg, 03/22/23 20:14:00 EDT, Weight Dosing Start Date: 03/22/23 Stop Date: 03/29/23 Status: Ordered Start: 07-03-2021 take 1 capsule by mo uth twice daily Keflex 500 mg Cap 500 mg = 1 cap(s), Oral, BID, # 10 cap(s), Refills(s) 0, Pharmacy: [facility], 170, cm, 06/27/21 10:56:00 EST, [...] Stop Date: 02/21/22 Status: Ordered levothyroxine sodium 0.1 mg oral tablet (20 sources) l-Thyroxine Start: 2024 take 2 tablets by mouth once daily Synthroid 50 mcg Tab See Instructions, Oral 2 tab (100mcg) daily, Refills(s) 0 Start Date: 09/05/24 Status: Ordered Start: 08-25-2024 take 1 capsule by mo [facility] once daily Levothyroxine 100 mcg capsule Active 100 MCG PO Daily August 25, 2024 12:00am Start: 06-29-2024 End: 12-21-2024 take 1 tablet by mouth once daily levothyroxine (Synthroid, Levoxyl) 100 MCG tablet Indications: Abnormal TSH Take 1 tablet (100 mcg) by mouth Daily 30 tablet 2 06/29/2024 09/22/2024 Discontinued (Reorder) Start: 10-07-2023 End: 11-17-2024 take 1 tablet [...] once daily. Take 1 tablet by delphine once daily. Magnesium Aspart,Citrate,Oxide 400 mg magnesium capsule (4 sources) Start : 08-25 take 1 capsule [...] # 21 tab(s), Refills(s) 0, Pharmacy: [facility], 170.2, cm, 09/29/23 10:44:00 EST, Height/Length [...] omeprazole 20 mg delayed release oral capsule (18 sources) Proton Pump Inhibitor Start: 08-23-2024 End: 09-22-2024 take 1 capsule by mouth before mealtime omeprazole (PriLOSEC) [address] capsule Indications: Gastroesophageal Reflux Disease , Heartburn Take 1 capsule (20 mg) by mouth in the morning. Take before meals. Do not crush or chew.. 30 capsule 3 08/23/2024 Active Start: 04-28-2023 take 1 tablet by delphine th once daily Omeprazole Magnesium 20 MG 1 tablet 30 minutes before morning meal Orally Once a day for 30 days Apr, Active take 1 capsule by mo [facility] once daily omeprazole (PRILOSEC) 20 mg capsule Take 20 mg by mouth once daily. 0 Active Comment on above: Take 20 mg by mouth once daily. ondansetron 4 mg disintegrating oral tablet (13 sources) Serotonin-3 Receptor Antagonist Start: 03-27-20 24 End: 04-26-20 24 take 1 tablet by mouth every six hours for nausea ondansetron ODT (Zofran-ODT) 4 MG disintegrating tablet Indications: Nausea and vomiting in Take 1 tablet (4 mg) by mouth every 6 (six) hours if needed for nausea or vomiting 30 tablet 3 03/27/2024 04/26/2024 Active Start: 02-18-2022 take 1 tablet by delphine th every twelve hours Ondansetron HCl 4 MG [...] Date: 02/18/22 Stop Date: 02/21/22 Status: Ordered Ioe579-Yrhcixg Fumarate-Fa () 28-800 mg-mcg Tablet (20 sources) Start: 12-29-2020 Ogl443-Ivgaqjd Fumarate-Fa () 28-800 mg-mcg Tablet Active TAB PO December 29, 2020 3:43pm Start: 12-29-2020 End: 10-07-2023 Aph728-Ktfeccf Fumarate-Fa ( ) 28-800 mg-mcg Tablet Discontinued TAB PO December 28, 2020 11:00pm October 07, 2023 6:06pm Start: 12-29-2020 End: 10-07-2023 Pnm246-Hoxwozc Fumarate-Fa ( ) 28-800 mg-mcg Tablet Discontinued TAB PO December 29, 2020 12:00am October 07, 2023 7:06pm Start: 12-29-2020 Ydo190-Rgvfqlw Fumarate-Fa () 28-800 mg-mcg Tablet Active TAB PO December 28, 2020 11:00pm Start: 12-29-2020 Eoj609-Nkajmnc Fumarate-Fa () 28-800 mg-mcg Tablet Active TAB PO December 29, 2020 12:00am -uttk fum-folic ac-o m3 (One Daily ) (12 sources) Start: 08-25-2024 stsirv20-mrth fum-folic ac-om3 (One Daily ) Active 1 PKG PO Daily August 25, 2024 12:10pm Start: 05-11-2024 End: 08-25-2024 -mafo fum-folic ac-o m3 (One Daily ) Discontinued PO May 10, 2024 11:00pm August 25, 2024 12:11pm Start: 05-11-2024 nuhwav58-zfvo fum-folic ac-om3 (One Daily ) Active PO May 10, 2024 11:00pm Start: 05-11-2024 -hpfe fum-folic ac-om3 (One Daily ) Active PO May 11, 2024 12:00am MV-Min-Fe Fum-FA-DHA ( 1 PO) (20 sources) MV-Min- Fe Fum-FA-DHA ( 1 PO) Take 1 each by mouth Daily Active yw292-dvaw-knplj acid ( 19) 29 mg iron- 1 mg tablet,chewable (2 sources) ld532-daal-ahkjg acid ( 19) 29 mg iron- 1 [...] source) Vitamin B12 cyanocobalamin/f olic acid (VITAMIN G58-BCMDT ACID) 1,000-400 mcg lozg Take by mouth every 24 hours. 0 Active Comment on above: Take by mouth every 24 hours. 3 ml liraglutide 6 mg/ml pen injector (5 sources) GLP-1 Receptor Agonist Start: 05-20-2022 Victoza 18 MG/3ML Week one- 0.6mg, Week two- 1.2mg, Week three on- 1.8mg Subcutaneous Daily for 30 days May, Not-Taking mecobalamin 1 mg chewable tablet (18 sources) Start: 10-07-2023 mecobalamin, vitamin B12, 1,000 [...] Active Start: 08-25-2023 take 1 tablet by [facility] once daily before breakfast Phentermine HCl 37.5 MG 1 tablet before breakfast Orally Once a day for 30 days Aug, Active Start: 06-23-2023 take 1 tablet by delphineeast [facility] once daily before breakfast Phentermine HCl 37.5 MG 1 tablet before breakfast Orally Once a day for 30 days Jun, Active Start: 05-26-[address] [facility] every twenty-four hours Phentermine HCl 37.5 MG 1 capsule Orally Once a day for 30 days May, Active Comment on above: Take 37.5 mg by moaz h. 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 ; Translations: [Other mental disorders complicating , unspecified trimester] 2024 Episodic Other complications of (17 sources) Vomiting of , unspecified; Translations: [Unspecified [...] Chronic Other nutritional; endocrine; and metabolic disorders (16 sources) Drug-induced obesity; 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] 11-25-2023 Chronic Other nutritional; endocrine; and metabolic disorders (20 sources) Weight gain; Translations: [Abnormal weight gain] 03-12-2020 Episodic Other nutritional; endocrine; and metabolic disorders (1 source) Abnormal weight gain Episodic Other nutritional; endocrine; and metabolic disorders (7 sources) Weight increased; Translations: [Abnormal weight gain] 10-07-2023 Episodic Other and delivery including normal (20 sources) Second trimester ; Translations: [Encounter for supervision of normal , unspecified, second trimester] Onset: 4 06-12-2024 Episodic Other screening for suspected conditions (not mental disorders or infectious disease) (13 sources) Encounter for screening for malignant neoplasm [...] of ] 2024 Episodic Residual codes; unclassified (17 sources) Gestation period, 22 weeks; Translations: [22 [...] [31 weeks gestation of ] 09-07-2024 Episodic Residual codes; unclassified (2 sources) Gestation period, 32 weeks; Translations: [32 weeks gestation of ] 09-19-2024 Episodic Syncope (1 source) Syncope and collapse; Translations: [Syncope and collapse] Onset: 5 Episodic Thyroid disorders (20 sources) Hypothyroidism; Translations: [Hypothyroidism, unspecified] Onset: 2 Resolved: 2 Chronic Unclassified (15 sources) OB Reminders Onset: 4 06-28-2024 Unclassified [...] Name Value Interpretation Reference Range Facility OB BPP W NON-STRESS on 09-22-2024 [place] [address] Ultrasound Report Signed Patient: TAWNYA HERRING MR#: [id number] : 1995 Acct:[id number] Age/Sex: 29 / F ADM Date: 09/22/24 Loc: [facility] 252-[address]: Brain Way D.O. Ordering Physician: Brain Way D.O. Date of Service: 09/22/24 Procedure(s): US OB BPP w non-stress Accession Number(s): [id number] cc: Darwin Jones CONCRETE BOOM OPERATOR; Brain Way D.O. [address] [address] Patient Name: TAWNYA HERRING MRN: [id number] date: 1995 Sex: F Assigned Patient Location: [facility] Current Patient Location: [facility] Accession/Order Number: [id number] Exam Date: 09/22/2024 11:07 Report Date: 09/22/2024 11:35 At the request of: BRAIN WAY Procedure: US OB BPP w non-stress EXAMINATION: US OB BPP w non-stress HISTORY: EXCESSIVE GROWTH AFFECTING O36.63X1 COMPARISON: No relevant comparison available. TECHNIQUE: Ultrasound biophysical profile was performed in the radiology department. non-reactive stress testing was performed by nursing staff in the birthing center. FINDINGS: BREATHING MOVEMENTS: 2 GROSS BODY MOVEMENTS: 2 TONE: 2 QUALITATIVE AMNIOTIC FLUID VOLUME: 2 PRESENTATION: CEPHALIC HEART RATE: 130.43 bpm AMNIOTIC FLUID VOLUME: 21.7 cm GESTATIONAL AGE: 33 weeks 2 days US/US OB BPP w non-stress IMPRESSION: Total biophysical profile score: 8 Electronically authenticated by: AZALIA WALTERS Date: 09/22/2024 11:35 Dictated By: Azalia Walters M.D. Signed By: 09/22/24 1138 DD/ 1135 TD/TT: Paperback Machine Operator: [facility] Radiology, Radiolognoel contreras MD - 09/22/2024 [place] [address] Ultrasound Report Signed Patient: TAWNYA HERRING MR#: [id number] : 1995 Acct:[id number] Age/Sex: 29 / F ADM Date: 09/22/24 Loc: [facility] 252-[address]: Brain Way D.O. Ordering Physician: Brain Way D.O. Date of Service: 09/22/24 Procedure(s): US OB BPP w non-stress Accession Number(s): [id number] cc: Darwin Jones CONCRETE BOOM OPERATOR; Brain Way D.O. The [place] [id number] Patient Name: TAWNYA HERRING MRN: [facility]:[id number] date: 1995 Sex: F Assigned Patient Location: [facility] Current Patient Location: [facility] Accession/Order Number: [id number] Exam Date: 09/22/2024 11:07 Report Date: 09/22/2024 11:35 At the request of: BRAIN WAY Procedure: US OB BPP w non-stress EXAMINATION: US OB BPP w non-stress HISTORY: EXCESSIVE GROWTH AFFECTING O36.63X1 COMPARISON: No relevant comparison available. TECHNIQUE: Ultrasound biophysical profile was performed in the radiology department. non-reactive stress testing was performed by nursing staff in the birthing center. FINDINGS: BREATHING MOVEMENTS: 2 GROSS BODY MOVEMENTS: 2 TONE: 2 QUALITATIVE AMNIOTIC FLUID VOLUME: 2 PRESENTATION: CEPHALIC HEART RATE: 130.43 bpm AMNIOTIC FLUID VOLUME: 21.7 cm GESTATIONAL AGE: 33 weeks 2 days US/US OB BPP w non-stress IMPRESSION: Total biophysical profile score: 8 Electronically authenticated by: AZALIA WALTERS Date: 09/22/2024 11:35 Dictated By: Azalia Walters M.D. Signed By: 09/22/24 1138 DD/ 1135 TD/TT: Paperback Machine Operator: [facility] Radiology Study observation (narrative) [facility] US OB BPP W NON-STRESS Ordered By: Radiologist Radiology on 09-22-2024 [facility] Work Phone: Thyroid Stimulating Hormoneo n 09-21-2024 TSH Qn 2.52 m[IU]/L Normal 0.45-5.33 [facility] Comment on above: Result Comment: PERF ORMED BY: [place] [address] PATHOLOGIST [employer]POSITION ROLL MAKER AND CUTTER MIS SCHMIDT M.D. Performed By: #### T SH3 #### [address] [place] [address] Thyrotropin [Units/volume] i n Serum or PlasmaOrdered By: Brain Way on 09-21-2024 TSH Qn Thyrotropin [Units/v olume] in Serum or Plasma 0.45-5.33 [facility] Urinalysis macro (dipstick) panel (U)on 09-19-2024 Bilirubin, UA Positive Negative - 4(70) +++ mg/dL [facility] Comment on above: small Blood, UA Negative Negative - 50 Dain/mcL [facility] Clarity, UA Clear [facility] Color, UA Wendy [facility] Glucose, UA Negative Negative - 2000(110) ++++ mg/dL [facility] Interpretation and review of laboratory results Abnormal [facility] Ketones, UA Positive Negative - 160(16) ++++ mg/dL [facility] Comment on above: trace Leukocytes, UA Negative Negative - 500+++ Chaparrita/mcL [facility] Nitrite, UA Negative Negative - Positive [facility] pH, UA 6 5 - 9 [facility] Protein, UA Positive Negative - 2000(20) ++++ mg/dL [facility] Comment on above: 30 Spec Grav, UA 1.025 1 - 1.03 [facility] Urobilinogen, UA 1.0 0.2 - 12 mg/dL [facility] US OB BPP W NON-STRESS on 09-15-2024 [place] [address] Ultrasound Report Signed Patient: TAWNYA HERRING MR#: [id number] : 1995 Acct:[id number] Age/Sex: 29 / F ADM Date: 09/14/24 Loc: [facility] 254-[address]: Brain Way D.O. Ordering Physician: Brain Way D.O. Date of Service: 09/14/24 Procedure(s): US OB BPP w non-stress Accession Number(s): [id number] cc: Darwin Jones CONCRETE BOOM OPERATOR; Brain Way D.O. The [address] [address] Patient Name: TAWNYA HERRING MRN: [id number] date: 1995 Sex: F Assigned Patient Location: Current Patient Location: Accession/Order Number: [id number] Exam Date: 09/14/2024 19:57 Report Date: 09/15/2024 [...] M.D. Signed By: 09/15/24616 DD/ 4 TD/TT: Paperback Machine Operator: [facility] Radiology, Radiologi MD diane - 09/15/2024 [place] [address] Ultrasound Report Signed Patient: TAWNYA HERRING MR#: [id number] : 1995 Acct:[id number] Age/Sex: 29 / F ADM Date: 09/14/24 Loc: [facility] 254-[address]: Brain Way D.O. Ordering Physician: Brain Way D.O. Date of Service: 09/14/24 Procedure(s): US OB BPP w non-stress Accession Number(s): [id number] cc: Darwin Jones CONCRETE BOOM OPERATOR; Brain Way D.O. The [address] [address] Patient Name: TAWNYA HERRING MRN: [facility]:[id number] date: 1995 Sex: F Assigned Patient Location: Current Patient Location: Accession/Order Number: [id number] Exam Date: 09/14/2024 19:57 Report Date: 09/15/2024 [...] M.D. Signed By: 09/15/24616 DD/ 4 TD/TT: Paperback Machine Operator: [facility] Radiology Study observation (narrative) [facility] OB BPP W NON-STRESS Ordered By: Radiologist Radiology on 09-15-2024 [facility] Work Phone: [facility] echo transthoracicon [facility] echo transthoracic [place] [address] Echocardiogram Signed Patient: Tawnya Shay MR#: [id number] : 1995 Acct:[id number] Age/Sex: 29 / F ADM Date: 09/14/24 Loc: Room: Type: [facility] Attending Dr: Mary Ellen Bruce MD Ordering Provider: Mary Ellen Bruce MD Date of Service: 09/14/24 [facility] echo transthoracic: I51.7 - Cardiomegaly Copies to: [...] Bruce MD 09/14/24 1116 Normal [facility] US OB GROWTHon 09-11-[address] [address] Ultrasound Report Signed Patient: TAWNYA HERRING MR#: [id number] : 1995 Acct:[id number] Age/Sex: 29 / F ADM Date: 09/11/24 Loc: US Attending Dr: Mya Finch Ordering Physician: Mya Finch Date of Service: 09/11/24 Procedure(s): US OB growth Accession Number(s): [id number] cc: Mya Finch; Darwin Jones NP [address] [address] Patient Name: TAWNYA HERRING MRN: [id number] date: 1995 Sex: F Assigned Patient Location: Current Patient Location: US Accession/Order Number: [id number] Exam Date: 09/11/2024 10:00 Report Date: 09/11/2024 [...] Signed By: 09/11/24 1111 DD/ 1108 TD/TT: Paperback Machine Operator: [facility] Radiology, Radiologi MD diane - 09/11/2024 [place] [address] Ultrasound Report Signed Patient: TAWNYA HERRING MR#: [id number] : 1995 Acct:[id number] Age/Sex: 29 / F ADM Date: 09/11/24 Loc: US Attending Dr: Mya Finch Ordering Physician: Mya Finch Date of Service: 09/11/24 Procedure(s): US OB growth Accession Number(s): [id number] cc: Mya Finch; Darwin Jones NP The [address] [address] Patient Name: TAWNYA HERRING MRN: [facility]:[id number] date: 1995 Sex: F Assigned Patient Location: Current Patient Location: US Accession/Order Number: [id number] Exam Date: 09/11/2024 10:00 Report Date: 09/11/2024 [...] Signed By: 09/11/24 1111 DD/ 1108 TD/TT: Paperback Machine Operator: [facility] Radiology Study observation (narrative) [facility] US OB GROWTHOrdered By: Halima ologist Radiology on 09-11-2024 [facility] Work Phone: C Urineon 09-07-2024 Bacteria identified Cx Nom (U) [...] Locations R1: [facility] performed [facility], [address] [place] [address], [address] , [place], Normal [facility] Comment on above: Performed By: #### 2 [id number] #### [facility] [address] [place] [id number] Urinalysis macro (dipstick) panel (U)on 09-07-2024 Bilirubin, UA Negative Negative - 4(70) +++ mg/dL [facility] Blood, UA Negative Negative - 50 Dain/mcL [facility] Clarity, UA Clear [facility] Color, UA Yellow [facility] Glucose, UA Negative Negative - 1999(110) ++++ mg/dL [facility] Interpretation and review of laboratory results Normal [facility] Ketones, UA Negative Negative - 160(16) ++++ mg/dL [facility] Leukocytes, UA Negative Negative - 500+++ Chaparrita/mcL [facility] Nitrite, UA Negative Negative - Positive [facility] pH, UA 8 5 - 9 [facility] Protein, UA Negative Negative - 1999(20) ++++ mg/dL [facility] Spec Grav, UA 1.015 1 - 1.03 [facility] Urobilinogen, UA 1.0 0.2 - 12 mg/dL [facility] ED Clinical Summaryon 2024 ED Clinical Summary ED Clinical Summary [place] [id number] ED Clinical Summary Person Information Name: TAWNYA HERRING [facility] Age: 29 Years : 1995 Sex: Female Language: French PCP: DARWIN JONES CNP Marital Status: Single Phone: [phone] Visit Id: Visit Reason: Headache; HEADACHE, FALL [...] 09/06/2024 16:26:55 09/06/2024 16:26:55 09/06/2024 16:26:55 ADDRESS: [address] [place] [id number] PHYS DOC NOTES: MEDICAL INFORMATION: Prescriptions Given: [...] day. PATIENT EDUCATION INFORMATION: Instructions: Concussion, Adult, Fpgq-pk-Aixs Follow up: With: Address: When: DARWIN [address] [place] [address] [phone] Business (1) In 3 days 09/09/2024 Comments: Call to schedule a follow-up appointment with your primary care provider. Use Zofran as needed for nausea/vomiting. Return to the ED with any new or worsening symptoms. DIAGNOSIS: JEFFERSON (headache) Normal [facility] ED Note-Physicianon 09-06-19 ED Note-Physician ED Note-Physician Basic Information Time Seen: Nya BECKHAM, Lashon Louis 09/06/2024 14:32 Chief Complaint [...] headache. She denies the use of any dkui-uxj-lzjrihn medications for this. Patient denies any neck [...] [] Head CT not ordered by emergency home health care worker [] Head CT ordered for reasons other than trauma [] Patient is 18 or older, presenting with minor blunt head trauma. Head CT (including cosigned orders) was ordered by an emergency home health care worker for trauma because (select one or more):[SATISFIES MIPS PERFORMANCE]Reasons: [] Patient is 65 or older [] Patient GCS < 15 [] Patient has focal neurologic deficit [] Patient has severe headache [] Patient is vomiting [] Severe/dangerous mechanism of injury was identified(select one or more): []MVA with: patient ejection, of another passenger, rollover, speed > 40mph, airbag deployment, taxi cab driver or passenger on ATV or motorcycle [...] cosigned orders) was ordered by an emergency home health care worker for trauma, no indication specified.[DOES NOT SATISFY MIPS PERFORMANCE] Medical Decision Making Patient is a 29-year-old female with a history of anxiety who presents to the ED 30 weeks with complaints of a headache following a syncope episode from a seated position yesterday. Patient is hemodynamically st (more content not included)... Normal [facility] Comment on above: Result Comment: Elec tronically Signed By: Lashon Tee PA-C\.br\Date and Time Signed: 09/06/24 16:20 EST\.br\Electronically Co-Signed By: Lashon Tee PA-C\.br\Date and Time Co-Signed: 09/06/24 16:21 EST\.br\Electronically Co-Signed By: Flash Franco DO\.br\Date and Time Co-Signed: 09/06/24 19:47 EST ED Patient Summaryon 025 ED Patient Summary ED Patient Summary [place] [address] Patient Discharge Instructions Person Information Name: TAWNYA HERRING Age: 29 Years Arrival Date: 09/06/2024 13:57:18 Discharge Diagnosis: JEFFERSON (headache) Primary Care Physician: DARWIN JONES CNP Provider Information Primary Provider: Flash Franco DO [employer]:Lashon Tee PA-C The exam and treatment you received in the Emergency Department were for an urgent problem and are not intended as complete care. It is important that you follow up with a doctor, nurse practitioner, or physician???s retirement assistant for ongoing care. If your symptoms [...] Follow-up Instructions: With: Address: When: DARWIN JONES [facility] [facility] [place] [address] [phone] Business (1) In 3 days 09/09/2024 Comments: [...] participating provider. Patient Education Materials: Concussion, Adult, Lysi-xz-Fjoy A MESSAGE TO ALL PATIENTS REGARDING OPIOIDS PRESCRIPTION OPIOIDS: WHAT YOU NEED TO KNOW Prescription opioids can be used to help relieve gfuumtnl-ub-ivcjvn pain and are often prescribed following a [...] (www.fda.gov/Drugs/Resourc esForYou). (more content not included)... Normal [facility] BLOOD BANKOrdered By: Estefany Morillo on 09-05-2024 Fibronectin. Ql (Vag fld) Negative 1 (09/05/24 5:47 AM) Normal [facility] Comment on above: Interpretive Data: [...] Anion gap [Moles/Vol] 16 mmol/L Normal 6-16 [facility] Comment on above: Performed By: #### 2 [id number] #### [facility] [address] [place] [address] Calcium [Mass/Vol] 8.5 mg/dL Low 8.9-11.1 [facility] Comment on above: Performed By: #### 2 [id number] #### [facility] [address] [place] [address] Chloride [Moles/Vol] 108 mmol/L Normal 101-111 [facility] Comment on above: Performed By: #### 2 [id number] #### [facility] [address] [place] [address] CO2 [Moles/Vol] 17 mmol/L Low 21-31 [facility] Comment on above: Performed By: #### 2 [id number] #### [facility] [address] [facility] [place] [address] Creatinine [Mass/Vol] 0.4 mg/dL Low 0.5-1.3 [facility] Comment on above: Performed By: #### 2 [id number] #### [facility] [address] [place] [address] Glucose [Mass/Vol] 103 mg/dL Normal 55-199 [facility] Comment on above: Performed By: #### 2 [id number] #### [facility] [address] [facility] [place] [address] Potassium [Moles/Vol] 3.6 mmol/L Normal 3.5-5.3 [facility] Comment on above: Performed By: #### 2 [id number] #### [facility] [address] [facility] [place] [address] Sodium [Moles/Vol] 137 mmol/L Normal 135-145 [facility] Comment on above: Performed By: #### 2 [id number] #### [facility] [address] [place] [address] Urea nitrogen [Mass/Vol] 9 mg/dL Normal 5-21 [facility] Comment on above: Performed By: #### 2 [id number] #### [facility] [address] [place] [address] Urea nitrogen/Creatinine [Mass ratio] 22 No Units High 10-20 [facility] Comment on above: Performed By: #### 2 [id number] #### [facility] [address] [place] [address] CBC w/ Auto Diffon 5 Basophils/100 WBC (Bld) 0.4 % Normal 0.0-2.0 [facility] Comment on above: Performed By: #### 2 [id number] #### [facility] [address] [place] [address] Basophils/Leukocytes Auto (Bld) [Pure # fraction] 0.1 E9/L Normal 0.0-0.2 [facility] Comment on above: Performed By: #### 2 [id number] #### [facility] [address] [place] [address] Eosinophils (Bld) [#/Vol] 0.0 E9/L Normal 0.0-0.5 [facility] Comment on above: Performed By: #### 2 [id number] #### [facility] [address] [place] [address] Eosinophils/100 WBC (Bld) 0.3 % Normal 0.0-8.0 [facility] Comment on above: Performed By: #### 2 [id number] #### [facility] [address] [place] [address] Erythrocyte distribution width (RBC) [Ratio] 12.7 % Normal 10.9-14.2 [facility] Comment on above: Performed By: #### 2 [id number] #### [facility] [address] [place] [address] Hematocrit (Bld) [Volume fraction] 37.4 % Normal 34.0-46.0 [facility] Comment on above: Performed By: #### 2 [id number] #### [facility] [address] [place] [address] Hemoglobin (Bld) [Mass/Vol] 13.2 g/dL Normal 12.0-16.0 [facility] Comment on above: Performed By: #### 2 [id number] #### [facility] [address] [place] [address] Lymphocytes (Bld) [#/Vol] 1.1 E9/L Normal 1.0-4.0 [facility] Comment on above: Performed By: #### 2 [id number] #### [facility] [address] [place] [address] Lymphocytes/100 WBC (Bld) 7.0 % Low 14.0-50.0 [facility] Comment on above: Performed By: #### 2 [id number] #### [facility] [address] [place] [address] MCH (RBC) [Entitic mass] 33.0 pg Normal 27.0-34.0 [facility] Comment on above: Performed By: #### 2 [id number] #### [facility] [address] [place] [address] MCHC (RBC) [Mass/Vol] 35.4 g/dL Normal 31.4-36.0 [facility] Comment on above: Performed By: #### 2 [id number] #### [facility] [address] [place] [address] MCV (RBC) [Entitic vol] 93.3 fL Normal 80.0-100.0 [facility] Comment on above: Performed By: #### 2 [id number] #### [facility] [address] [place] [address] Monocytes (Bld) [#/Vol] 0.7 E9/L Normal 0.2-1.0 [facility] Comment on above: Performed By: #### 2 [id number] #### [facility] [address] [place] [address] Neutrophils (Bld) [#/Vol] 13.7 E9/L High 2.0-7.5 [facility] Comment on above: Performed By: #### 2 [id number] #### [facility] [address] [place] [address] Neutrophils/100 WBC (Bld) 87.6 % High 36.0-75.0 [facility] Comment on above: Performed By: #### 2 [id number] #### [facility] [address] [place] [address] Platelet 324.0 E9/L Normal 150.0-500. 0 [facility] Comment on above: Performed By: #### 2 [id number] #### [facility] [address] [place] [address] Platelet mean volume (Bld) [Entitic vol] 8.3 fL Normal 6.4-10.8 [facility] Comment on above: Performed By: #### 2 609046 #### [facility] [address] [place] [address] RBC (Bld) [#/Vol] 4.0 E12/L Low 4.3-5.9 [facility] Comment on above: Performed By: #### 2 [id number] #### [facility] [address] [place] [address] WBC corrected for nucl RBC Auto (Bld) [#/Vol] 15.6 E9/L High 4.0-11.0 [facility] Comment on above: Performed By: #### 2 [id number] #### [facility] [address] [place] [address] CHEMISTRYOrdered By: SYSTEM SYSTEM on 09-05-2024 Albumin [...] 2024 ED Clinical Summary ED Clinical Summary [place] [id number] ED Clinical Summary Person Information Name: TAWNYA HERRING [facility] Age: 29 Years : 1995 Sex: Female Language: French PCP: DARWIN JONES CNP Marital Status: Single Phone: [phone] Visit Id: Visit Reason: Abdominal pain - ; Vomiting - ; Syncope/Near syncope; PASSED OUT HIT HEAD,NAUSEA DIARRHEA VOMITING 30 WKS PREG Speciality: Acuity: 2 Enc Type: Emergency Med Service: Emergency Arrival: 09/05/2024 03:02:46 Discharge: LOS: 000 01:33 Checkin: 09/05/2024 03:02:46 Checkout: 09/05/2024 04:35:45 Dispo Type: Admitted as IP to this [facility] EVENTS: Event Name Event Status Request [...] 09/05/2024 04:35:45 09/05/2024 04:35:45 09/05/2024 04:35:45 ADDRESS: [address] [place] [phone] [facility] DOC NOTES: MEDICAL INFORMATION: Prescriptions Given: Medications to Continue with No Changes Other Medications citalopram (CeleXA 20 mg Tab) 1 Tablets By Mouth every day. PATIENT EDUCATION INFORMATION: Instructions: Syncope, Adult, Ilcl-iv-Zplx; Nausea and Vomiting, Adult, Cbrm-un-Ehea; Diarrhea, Adult, Hgyn-ay-Xpsl; Dehydration, Adult, Elwf-re-Kplj Follow up: With: Address: When: DARWIN JONES [address] [place] [address] [phone] Business (1) In 3 days 09/08/2024 Comments: Please follow-up with Dr. Way for further evaluation management. Please return to the ED for any new or worsening symptoms. DIAGNOSIS: Dehydration; Diarrhea, unspecified; Nausea, vomiting, and diarrhea; Syncope Normal [facility] ED Note-Nursingon 09-05-2024 ED Note-Nursing ED Note-Nursing OB at bedside Normal [facility] ED Note-Physicianon 09-05-19 ED Note-Physician ED Note-Physician [...] and Complexity of Problems Differential Diagnosis: [] [facility] Data External documents reviewed: [] My EKG [...] Dayna 50 mL [F] 50 mL + [id number] [F] 25 mg, IV Piggyback Disposition Plan [...] Use, 03/12/2020 (more content not included)... Normal [facility] Comment on above: Result Comment: Elec tronically Signed By: Gabriel Curtis DO.jaspal\Date and Time Signed: 09/05/24 04:22 EST ED Patient Summaryon 025 ED Patient Summary ED Patient Summary [address] [address] Patient Discharge Instructions Person Information Name: TAWNYA HERRING Age: 29 Years Arrival Date: 09/05/2024 03:02:46 Discharge Diagnosis: Dehydration; Diarrhea, unspecified; Nausea, vomiting, and diarrhea; Syncope Primary Care Physician: DARWIN JONES CNP Provider Information Primary Provider: Gabriel Curtis DO [employer]:None The exam and treatment you received in the Emergency Department were for an urgent problem and are not intended as complete care. It is important that you follow up with a doctor, nurse practitioner, or physician???s retirement assistant for ongoing care. If your symptoms [...] Follow-up Instructions: With: Address: When: DARWIN JONES [facility] [place] [phone] Business (1) In 3 days 09/08/2024 Comments: Please follow-up with Dr. Way for further evaluation management. Please return to the ED for any new or worsening symptoms. In the event that this physician does not participate in your insurance network, please consult with your insurance company to find a nearby participating provider. Patient Education Materials: Syncope, Adult, Mjde-zv-Jqto; Nausea and Vomiting, Adult, Doex-nm-Cmaa; Diarrhea, Adult, Shqf-fw-Cdgq; Dehydration, Adult, Usdn-ap-Vutk A MESSAGE TO ALL PATIENTS REGARDING OPIOIDS PRESCRIPTION OPIOIDS: WHAT YOU NEED TO KNOW Prescription opioids can be used to help relieve ejdrnssq-qw-gzlogj pain and are often prescribed following a [...] down t (more content not included)... Normal [facility] Extra Blueon 09-05-2024 Tube Collected Plasma Yes Invalid Interpretation Code [facility] Comment on above: Performed By: #### 1 [id number] #### [facility] [address] [place] [address] FFNon 09-05-2024 Fibronectin. Ql (Vag fld) Negative Normal [facility] Comment on above: Result Comment: In S [...] the antibody-antigen reaction. Performed By: #### 1 [id number] #### [facility] [address] [place] [address] HEMATOLOGYOrdered By: SYSTEM SYSTEM on 09-05-2024 Basophils/100 [...] 09-05-2024 Albumin [Mass/Vol] 3.8 g/dL Normal 3.3-5.0 [facility] Comment on above: Performed By: #### 2 [id number] #### [facility] [address] [place] [address] Albumin/Globulin (S) [Mass conc ratio] 1.5 Normal 1.1-2.2 [facility] Comment on above: Performed By: #### 2 [id number] #### [facility] [address] [place] [address] ALP [Catalytic activity/Vol] 80 Int._Unit/L Normal 21-98 [facility] Comment on above: Performed By: #### 2 [id number] #### [facility] [address] [place] [address] ALT No additional P-5'-P [Catalytic activity/Vol] 20 Int._Unit/L Normal 6-46 [facility] Comment on above: Performed By: #### 2 [id number] #### [facility] [address] [place] [address] AST [Catalytic activity/Vol] 15 Int._Unit/L Normal 5-43 [facility] Comment on above: Performed By: #### 2 [id number] #### [facility] [address] [place] [address] Bilirubin [Mass/Vol] 0.6 mg/dL Normal 0.0-1.1 [facility] Comment on above: Performed By: #### 2 780512 #### [facility] [address] [place] [address] Bilirubin.direct [Mass/Vol] 0.1 mg/dL Normal 0.0-0.4 [facility] Comment on above: Performed By: #### 2 200092 #### [facility] [address] [place] [address] Bilirubin.indirect [Mass or moles/Vol] 0.5 mg/dL Normal 0.1-0.9 [facility] Comment on above: Performed By: #### 2 [id number] #### [facility] [address] [place] [address] Globulin (S) [Mass/Vol] 2.6 g/dL Normal 1.4-4.0 [facility] Comment on above: Performed By: #### 2 [id number] #### [facility] [address] [place] [address] Protein [Mass/Vol] 6.4 g/dL Normal 6.0-7.8 [facility] Comment on above: Performed By: #### 2 [id number] #### [facility] [address] [place] [address] Influenza A&B Agon 5 Influenzae A Ag Negative Normal Negative [facility] Comment on above: Performed By: #### 1 [id number] #### [facility] [address] [place] [address] Influenzae B Ag Negative Normal Negative [facility] Comment on above: Result Comment: Test sensitivity and specificity vary for age group, specimen type, antigen types, and prevalence of disease. Test results must be evaluated in conjunction with other clinical data available to the physician. Individuals who received nasally administered Influenza A vaccine may have positive test results up to 3 days after vaccination. Performed By: #### 1 [id number] #### [facility] [address] [place] [address] Inpatient Clinical Summaryon 09-05-2024 Inpatient Clinical Summary Inpatient Clinical Summary [address] [address] Clinical Summary Person Information Name: TAWNYA HERRING [facility] Age: 29 Years : 1995 Sex: Female PCP: DARWIN JONES CNP Marital Status: Single Phone: [phone] Race: White Ethnicity: Non- or Language: French Visit Id: Visit Reason: Abdominal pain - ; Vomiting - ; Syncope/Near syncope; PASSED OUT HIT HEAD,NAUSEA DIARRHEA VOMITING 30 WKS PREG Speciality: Acuity: Obs Enc Type: Observation Med Service: Obstetrics Arrival: 09/05/2024 03:02:46 Discharge: 09/05/2024 15:50:00 Dispo Type: Home ([facility]) Address: [address] [place] [phone] Provider Notes: Diagnosis: Dehydration; Diarrhea, unspecified; Nausea, [...] range between ( 80.0 and 100.0 ) Letcher Auto: 4.7 % -- Normal range between ( 4.0 and 14.0 ) MPV: 8.3 fL -- Normal range between ( 6.4 and 10.8 ) Neutro Auto: 87.6 % -- Normal range between ( 36.0 and 75.0 ) Platelet: 324.0 E9/L -- Normal range between ( 150.0 and 500.0 ) WBC: 15.6 E9/L -- Normal range between ( 4.0 and 11.0 ) Letcher Absolute: 0.7 E9/L -- Normal range between [...] 38.19 kg/m2 (more content not included)... Normal [facility] Inpatient Patient Summaryon 09-05-2024 Inpatient Patient Summary Inpatient Patient Summary [address] [address] Patient Discharge Instructions PERSON INFORMATION Name: TANWYA HERRING Date of : 1995 Current Date: 09/05/2024 16:15:55 PHYSICIANS Admitting Physician: Rogelio Nath MD Primary Care Physician: DARWIN JONES CNP PCP Phone Number: [phone] Comment: Discharge Diagnosis: Dehydration; Diarrhea, unspecified; Nausea, [...] With: Address: When: Brain [address] [facility], [address] [place] [address] , [place] [address] [employer] (1) In 2 days 09/07/2024 Comments: Call 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 Medicines ??? Take izzl-ivm-mnkirji and prescription medicines only as told by [...] ? Flexing (more content not included)... Normal [facility] Lipase Levelon 09-05-2024 Lipase [Catalytic activity/Vol] 18 U/L Normal 13-58 [facility] Comment on above: Performed By: #### 2 [id number] #### [facility] [address] [place] [address] MICRO OTHER TESTSOrdered By: Barrington Maxwell on 09-05-2024 Influenzae A Ag Negative (09/05/24 3:34 AM) Normal Negative [facility] Influenzae B Ag Negative 3 (09/05/24 3:34 AM) Normal Negative [facility] Comment on above: Interpretive Data: [...] Troponin HS 2.70 pg/mL Low 10.10-27.1 0 [facility] Comment on above: Result Comment: The 95% CI (Confidence Interval) PPV (Positive Predictive Value) for myocardial infarction in females is 38 pg/mL, in males 51 pg/mL. The results should be used in conjunction with clinical conditions of myocardial infarction. (Access High Sensitivity Troponin I Instructions For Use, Nathen Xiaohongshu, March 2018) Performed By: #### 1 [id number] #### [facility] [address] [place] [address] UA with Cult Rflxon 09-05-19 25 Bacteria Auto Ql (U) Trace Normal Trace Fish [facility] Comment on above: Performed By: #### 4 [id number] #### [facility] [address] [place] [address] Bilirubin Ql (U) 1+ mg/dL Abnormal Negative [facility] Comment on above: Performed By: #### 4 [id number] #### [facility] [address] [place] [address] Clarity (U) Turbid Abnormal Clear [facility] Comment on above: Performed By: #### 4 [id number] #### [facility] [address] [place] [address] Color (U) Dark-Yellow Abnormal Yellow [facility] Comment on above: Result Comment: Micr oscopic readings are only performed on those samples that meet specific criteria set forth by [facility]. Performed By: #### 4 [id number] #### [facility] [address] [place] [address] Epithelial cells.squamous Auto (Urine sed) [#/Area] 5-8 Invalid Interpretation Code [facility] Comment on above: Performed By: #### 4 [id number] #### [facility] [address] [place] [address] Glucose Ql (U) Trace Abnormal Negative [facility] Comment on above: Performed By: #### 4 [id number] #### [facility] [address] [place] [address] Hemoglobin Auto test strip (U) [Mass/Vol] Negative Normal Negative [facility] Comment on above: Performed By: #### 4 [id number] #### [facility] [address] [place] [address] Ketones Auto test strip Ql (U) 1+ mg/dL Abnormal Negative [facility] Comment on above: Performed By: #### 4 [id number] #### [facility] [address] [place] [address] Leukocyte esterase Auto test strip Ql (U) 25 Chaparrita/uL Normal Negative [facility] Comment on above: Performed By: #### 4 [id number] #### [facility] [address] [place] [address] Mucus Auto Ql (U) 4+ [id number] Abnormal Negative F [facility] Comment on above: Performed By: #### 4 [id number] #### [facility] [address] [place] [address] Nitrite Auto test strip Ql (U) 1+ mg/dL Abnormal Negative [facility] Comment on above: Performed By: #### 4 [id number] #### [facility] [address] [place] [address]907 pH (U) 5.5 [pH] Invalid Interpretation Code 5.0-9.0 [facility] Comment on above: Performed By: #### 4 [id number] #### [facility] [address] [place] [address]27 Protein Ql (U) 1+ mg/dL Abnormal Negative [facility] Comment on above: Performed By: #### 4 [id number] #### [facility] [address] [place] [address] 15583 RBC Ql (U) 0-3 Normal 0-3 [facility] Comment on above: Performed By: #### 4 [id number] #### [facility] [address] [place] [address] 52725 Specific gravity (U) [Rel density] 1.029 Invalid Interpretation Code 1.005-1.03 0 [facility] Comment on above: Performed By: #### 4 [id number] #### [facility] [address] [place], [place] [address] Urobilinogen (U) [Mass/Vol] 2 mg/dL Abnormal Negative [facility] Comment on above: Performed By: #### 4 [id number] #### [facility] [address] [place] [address] 14326 WBC Auto (Urine sed) [#/Area] 0-5 Normal 0-5 [facility] Comment on above: Performed By: #### 4 [id number] #### [facility] [address] [place] [address] 68999 Type of Urine collection method Clean Catch Normal [facility] Comment on above: Performed By: #### 4 [id number] #### [facility] [address] [place] [address] URINALYSISOrdered By: SYSTEM SYSTEM on 09-05-2024 Bacteria [...] that meet specific criteria set forth by [facility]. Epithelial cells.squamous Auto (Urine sed) [#/Area] [...] 09-05-2024 eGFR 138 mL/min/1.73 m2 Normal >=59 [facility] Comment on above: Performed By: #### 1 [id number] #### [facility] [address] [place] [address] ALL CBC WITH AUTO DIFFon BASOPHILS ABSOLUTE AUTO 0 [facility] Basophils/100 WBC (Bld) 0.2 % 0.2 - 2.0 % [facility] Eosinophils/100 WBC (Bld) 0.8 % Low 0.9 - 7.0 % [facility] Erythrocyte distribution width (RBC) [Ratio] 12.1 % 11.0 - 15.0 % [facility] Hematocrit (Bld) [Volume fraction] 33.9 % Low 36.0 - 48.0 % [facility] Hemoglobin (Bld) [Mass/Vol] 11.6 g/dL Low 12.0 - 16.0 g/dL [facility] IMMATURE GRANULOCYTES ABS AUTO 0.03 [facility] Immature granulocytes/100 WBC (Bld) 0.3 % 0.0 - 0.5 % [facility] Interpretation and review of laboratory results Abnormal [facility] LYMPHOCYTES ABSOLUTE AUTO 1.8 [facility] Lymphocytes/100 WBC (Bld) 19.8 % Low 20.5 - 60.0 % [facility] MCH (RBC) [Entitic mass] 32.9 pg 26.7 - 34.0 pg [facility] MCHC (RBC) [Mass/Vol] 34.2 g/dL 29.9 - 35.2 g/dL [facility] MCV (RBC) [Entitic vol] 96 fL 81.0 - 99.0 fL [facility] MONOCYTES ABSOLUTE AUTO 0.5 [facility] Monocytes/100 WBC (Bld) 5.4 % 1.7 - 12.0 % [facility] NEUTROPHILS ABSOLUTE AUTO 6.6 High [facility] Neutrophils/100 WBC (Bld) 73.5 % 43.0 - 75.0 % [facility] Platelet mean volume (Bld) [Entitic vol] 10.2 fL 9.5 - 13.5 fL [facility] TBH EO # 0.1 [facility] TBH PLT 287 [facility] TB RBC 3.53 Low [facility] TB WBC 9 [facility] Basophils Auto (Bld) [#/Vol] on 08-25-2024 Basophils (Bld) [#/Vol] Automated basophil count 0.0-0.1 [facility] Basophils/100 WBC Auto (Bld) on 08-25-2024 Basophils/100 WBC (Bld) Automated basophil % 0.2-2.0 [facility] Eosinophils/100 WBC Auto (Bl d)on 08-25-2024 Eosinophils/100 WBC (Bld) Automated eosinophil % Low 0.9-7.0 [facility] Erythrocyte distribution wid th Auto (RBC) [Ratio]on 08-25-2024 Erythrocyte distribution width (RBC) [Ratio] Erythrocyte distribution width [Ratio] by Automated count 11.0-15.0 [facility] FPG ECG *CARDIOLOGY ONLY*on 08-25-2024 FPG ECG *CARDIOLOGY ONLY* [place] [address] Electrocardiograph Report Signed Patient: Tawnya Herring MR#: [id number] 29 : 1995 Acct:[id number] Age/Sex: 29 / F ADM Date: 08/25/24 Loc: [facility] Room: Type: [facility] Attending Dr: Mary Ellen Bruce MD Ordering [...] Normal ECG Confirmed by Mary Ellen Bruce ([id number]) on 08/25/2024 1:42:57 PM Referred By: Electronically Signed By: Mary Ellen Bruce Transcribed By: MUS Signed By Mary Ellen Bruce MD 5 1342 Normal [facility] Hematocrit Auto (Bld) [Volum e fraction]on 08-25-2024 Hematocrit (Bld) [Volume fraction] Hematocrit [Volume Fraction] of Blood by Automated count Low 36.0-48.0 [facility] Hemoglobin [Mass/volume] in Bloodon 08-25-2024 Hemoglobin (Bld) [Mass/Vol] Hemoglobin [Mass/volume] in Blood Low 12.0-16.0 [facility] Laboratory - Chemistry and C hemistry - challengeon 08-25-2024 Glucose [Mass/Vol] 131 mg/dL High <130 [facility] - Hematology and Cell countson 08-25-2024 Immature granulocytes/100 WBC (Bld) 0.3 % 0.0-0.5 [facility] Leukocytes [#/volume] correc hamilton for nucleated erythrocytes in Blood by Automated counon 08-25-2024 WBC corrected for nucl RBC Auto (Bld) [#/Vol] Leukocytes [#/volume] corrected for nucleated erythrocytes in Blood by Automated coun 4.0-11.0 [facility] Lymphocytes Auto (Bld) [#/Vo l]on 08-25-2024 Lymphocytes (Bld) [#/Vol] Lymphocytes [#/volume] in Blood by Automated count 1.2-3.8 [facility] Lymphocytes/100 WBC Auto (Bl d)on 08-25-2024 Lymphocytes/100 WBC (Bld) Lymphocytes/100 leukocytes in Blood by Automated count Low 20.5-60.0 [facility] MCH Auto (RBC) [Entitic mass ]on 08-25-2024 MCH (RBC) [Entitic mass] MCH [Entitic mass] by Automated count 26.7-34.0 [facility] MCHC Auto (RBC) [Mass/Vol]on 08-25-2024 MCHC (RBC) [Mass/Vol] MCHC [Mass/volume] by Automated count 29.9-35.2 [facility] MCV Auto (RBC) [Entitic vol] on 08-25-2024 MCV (RBC) [Entitic vol] MCV [Entitic volume] by Automated count 81.0-99.0 [facility] Monocytes Auto (Bld) [#/Vol] on 08-25-2024 Monocytes (Bld) [#/Vol] Automated blood monocyte count 0.3-0.8 [facility] Monocytes/100 WBC Auto (Bld) on 08-25-2024 Monocytes/100 WBC (Bld) Automated monocyte % 1.7-12.0 [facility] Neutrophils Auto (Bld) [#/Vo l]on 08-25-2024 Neutrophils (Bld) [#/Vol] Neutrophils [#/volume] in Blood by Automated count High 1.4-6.5 [facility] Neutrophils/100 WBC Auto (Bl d)on 08-25-2024 Neutrophils/100 WBC (Bld) Automated neutrophil % 43.0-75.0 [facility] No Panel Informationon 08-25 Eosinophils # (Auto) 0.1 10 3/uL 0.0-0.7 [facility] Immature Granulocyte # (Auto) 0.03 10 3/uL 0.00-0.03 [facility] Platelet mean volume Auto (B ld) [Entitic vol]on 08-25-2024 Platelet mean volume (Bld) [Entitic vol] Platelet mean volume [Entitic volume] in Blood by Automated count 9.5-13.5 [facility] Platelets Auto (Bld) [#/Vol] on 08-25-2024 Platelets (Bld) [#/Vol] Platelets [#/volume] in Blood by Automated count 150-450 [facility] RBC Auto (Bld) [#/Vol]on RBC (Bld) [#/Vol] Erythrocytes [#/volu me] in Blood by Automated count Low 4.20-5.40 [facility] Urinalysis macro (dipstick) panel (U)on 08-23-2024 Bilirubin, UA Negative Negative - 4(70) +++ mg/dL [facility] Blood, UA Negative Negative - 50 Adin/mcL [facility] Clarity, UA Clear [facility] Color, UA Yellow [facility] Glucose, UA Negative Negative - 1999(110) ++++ mg/dL [facility] Interpretation and review of laboratory results Abnormal [facility] Ketones, UA Negative Negative - 160(16) ++++ mg/dL [facility] Leukocytes, UA Positive Negative - 500+++ Chaparrita/mcL [facility] Comment on above: small Nitrite, UA Negative Negative - Positive [facility] pH, UA 7 5 - 9 [facility] Protein, UA Negative Negative - 1999(20) ++++ mg/dL [facility] Spec Grav, UA 1.02 1 - 1.03 [facility] Urobilinogen, UA 0.2 0.2 - 12 mg/dL [facility] Thyroid Stimulating Hormoneo n 07-31-2024 TSH Qn 2.07 m[IU]/L Normal 0.45-5.33 [facility] Comment on above: Result Comment: PERF ORMED BY: [facility] [address] [place] [address] PATHOLOGIST [employer] C[employer] MIS SCHMIDT M.D. Performed By: #### T SH3 #### [address] Thyrotropin [Units/volume] i n Serum or PlasmaOrdered By: Brain Way on 07-31-2024 TSH Qn Thyrotropin [Units/v olume] in Serum or Plasma 0.45-5.33 [facility] Urinalysis macro (dipstick) panel (U)on 07-11-2024 Bilirubin, UA Negative Negative - 4(70) +++ mg/dL [facility] Blood, UA Negative Negative - 50 Dain/mcL [facility] Clarity, UA Clear [facility] Color, UA Yellow [facility] Glucose, UA Negative Negative - 1999(110) ++++ mg/dL [facility] Interpretation and review of laboratory results Abnormal [facility] Ketones, UA Negative Negative - 160(16) ++++ mg/dL [facility] Leukocytes, UA Trace Negative - 500+++ Chaparrita/mcL [facility] Nitrite, UA Negative Negative - Positive [facility] pH, UA 6 5 - 9 [facility] Protein, UA Negative Negative - 1999(20) ++++ mg/dL [facility] Spec Grav, UA 1.01 1 - 1.03 [facility] Urobilinogen, UA 0.2 0.2 - 12 mg/dL [facility] Alpha-fetoprotein (AFP) luis urement (rcqjhppu-me-ljsixx)Ordered By: Brain Way on 06-28-2024 AFP [MoM] Alpha-fetoprotein (A FP) measurement (dfbuuwga-yw-mwrczt) . [facility] Determination of gestational ageOrdered By: Brain Way on 06-28-2024 Gestational age Assess gestational age . [facility] Estimation of maternal age-s pecific risk of Down syndrome birthOrdered By: Brain Way on 06-28-2024 Age [Time] Estimation of matern al age-specific risk of Down syndrome . [facility] Human chorionic gonadotropin (hCG) multiple of median measurementOrdered By: Brain Way on 06-28-2024 HCG [MoM] Human chorionic gonadotropin (hCG) multiple of median measurement . [facility] Insulin dependent diabetes m ellitus detectionOrdered By: Brain Way on 06-28-2024 Insulin dependent diabetes mellitus Ql Insulin dependent diabetes mellitus detection . [facility] Interpretation of serum or p lasma second trimester quad maternal screen (narrative reOrdered By: Brain Way on 06-28-2024 Second trimester quad maternal screen Mathew [Interp] Interpretation of serum or plasma second trimester quad maternal screen (narrative re . [facility] Comment on above: Interpretation:An in terpretation CANNOT be provided for this patientbecause necessary patient information was not provided (oneor more of: gestational age, weight, or patient age).Please call us with new clinical information.Recalculations are not recommended when gestational datingby LMP and ultrasound are within 10 days. No Panel InformationOrdered By: Brain Way on 06-28-2024 AFP Triple Screen Comment Comment . [facility] Comment on above: Stephanie Pinto , Ph.D., DABCCDirectorReferences: Available Upon Request.Multiples Of Median Cutoffs Abbreviation Definitions For AFP Elevations IDD- Insulin Dep DiabetesSingleton 2.5 Black 2.8 OSBR- Open Spina BifidaIDD 2.0 Twins 4.5 RiskDSR Cutoff 1:270 DSR- Down Syndrome RiskT18 Cutoff 1:100 T18- Trisomy 18For further inquiries contact [employer] Servicesat [phone].This test was developed and its performance characteristicsdetermined by [employer]. It has not been cleared or approvedby the Food and Drug Administration.Performed at: [facility] [employer] [id number] [place], [place] [id number] Director: Aubrey Moreno [facility], Phone: [phone] Alpha Fetoprotein Results Received Report . [facility] Down Syndrome Age Equivalent See interpretation. . [facility] Gestational Age Calculation Method Ultrasound . [facility] Comment on above: 18:5 on 06/12/2024 Maternal Quad Test Risk See interpretation. . [facility] Maternal Race . [facility] Multiple No . [facility] Serum or plasma eqznj-6-york protein measurement (mass/volume)Ordered By: Brain Way on 06-28-2024 AFP [Mass/Vol] Serum or plasma mvneu-1-noqjqifklgz measurement (mass/volume) . [facility] Serum or plasma inhibin A me asurement (adjusted ugnauucq-ib-yaaxul)Ordered By: Brain Way on 06-28-2024 Inhibin A adjusted [MoM] Serum or plasma inhibin A measurement (adjusted gshucdkz-ug-utbnkd) . [facility] Serum or plasma inhibin A me asurement (mass/volume)Ordered By: Brain Way on 06-28-2024 Inhibin A [Mass/Vol] Inhibin A [Mass/vol ume] in Serum or Plasma . [facility] Serum or plasma total combin ed intact choriogonadotropin and beta subunit measurementOrdered By: Brain Way on 06-28-2024 HCG.intact+Beta subunit Qn Serum or plasma total combined intact choriogonadotropin and beta subunit measurement . [facility] Serum or plasma unconjugated estriol (E3) measurement (adjusted mjbygpcw-uv-xhrbqv)Ordered By: Brain Way on 06-28-2024 E3.unconjugated adjusted [MoM] Serum or plasma unconjugated estriol (E3) measurement (adjusted qjbdkgqg-xw-ckeann) . [facility] Serum or plasma unconjugated estriol (E3) measurement (mass/volume)Ordered By: Brain Way on 06-28-2024 E3.unconjugated [Mass/Vol] Serum or plasma unconjugated estriol (E3) measurement (mass/volume) . [facility] Thyroid Stimulating Hormoneo n 06-28-2024 TSH Qn 3.44 m[IU]/L Normal 0.45-5.33 [facility] Comment on above: Result Comment: PERF ORMED BY: [facility] [address] [place] [address] PATHOLOGIST [employer] JORDI SMITH M.D. Performed By: #### T SH3 #### [facility] [address] [place] [id number] [facility] Thyrotropin [Units/volume] i n Serum or PlasmaOrdered By: Brain Way on 06-28-2024 TSH Qn Thyrotropin [Units/v olume] in Serum or Plasma 0.45-5.33 [facility] Trisomy 21 risk determinatio n in fetusOrdered By: Brain Way on 06-28-2024 Trisomy 21 risk Qn (fetus) Trisomy 21 risk determination in fetus . [facility] US OB >= 14 weeks Fetuson US OB >= 14 weeks Fetus [facility] [address] [place] [address] [place] [address] Ultrasound Report Signed Patient: Tawnya Herring MR#: [id number] 29 : 1995 Acct:[id number] Age/Sex: 28 / F ADM Date: 06/22/24 Loc: Room: Type: [facility] Attending Dr: Brain Way DO Ordering Provider: [...] Norton Jr. DRhonda06/22/2024 4:00 PM Dictation Location: [place] [address] Tech: Rae De Paz Transcribed By: AGUILAR 06/22/24 1600 Dictated By: Zay Norton Jr, DO 06/22/24 1552 Signed By: 06/22/24 1600 Normal [facility] Urinalysis macro (dipstick) panel (U)on 06-12-2024 Bilirubin, UA Negative Negative - 4(70) +++ mg/dL [facility] Blood, UA Negative Negative - 50 Dain/mcL [facility] Clarity, UA Clear [facility] Color, UA Yellow [facility] Glucose, UA Negative Negative - 1999(110) ++++ mg/dL [facility] Interpretation and review of laboratory results Abnormal [facility] Ketones, UA Negative Negative - 160(16) ++++ mg/dL [facility] Leukocytes, UA Positive Negative - 500+++ Chaparrita/mcL [facility] Comment on above: small Nitrite, UA Negative Negative - Positive [facility] pH, UA 6 5 - 9 [facility] Protein, UA Negative Negative - 2000(20) ++++ mg/dL [facility] Spec Grav, UA 1.025 1 - 1.03 [facility] Urobilinogen, UA 1.0 0.2 - 12 mg/dL [facility] Thyrotropin [Units/volume] i n Serum or PlasmaOrdered By: Brain Way on 05-24-2024 TSH Qn 2.42 m[IU]/L Normal 0.45-5.33 [facility] Comment on above: Result Comment: PERF ORMED BY: [place] [address] PATHOLOGIST [employer] JORDI SMITH M.D. Performed By: #### T SH3 #### [address] TSH Qn Thyrotropin [Units/v olume] in Serum or Plasma 0.45-5.33 [facility] Urinalysis macro (dipstick) panel (U)on 05-10-2024 Bilirubin, UA Negative Negative - 4(70) +++ mg/dL [facility] Blood, UA Negative Negative - 50 Dain/mcL [facility] Clarity, UA Clear [facility] Color, UA Yellow [facility] Glucose, UA Negative Negative - 1999(110) ++++ mg/dL [facility] Interpretation and review of laboratory results Normal [facility] Ketones, UA Negative Negative - 160(16) ++++ mg/dL [facility] Leukocytes, UA Negative Negative - 500+++ Chaparrita/mcL [facility] Nitrite, UA Negative Negative - Positive [facility] pH, UA 6.5 5 - 9 [facility] Protein, UA Negative Negative - 1999(20) ++++ mg/dL [facility] Spec Grav, UA 1.020 1 - 1.03 [facility] Urobilinogen, UA 1.0 0.2 - 12 mg/dL [facility] IGP,APTIMA HPV,AGE GDLNon AGE GDLN ACOG TESTING Note . [facility] Comment on above: TESTS RESULT FLAG UN ITS REF RANGE LAB Clinician Provided Cytology Information Source.............Cervix No. of containers..01 ThinPrep Vial Age Algo ACOG Mariel... -13 09 FLAG LEGEND: L-Low Normal,H-High Normal,LL-Alert Low,HH-Alert High <-Panic Low,>-Panic High,A-Abnormal,AA-Critical Abnormal Performed at: 01 =[facility] [address] [address] Christelle Galan MD, IGP, RFX APTIMA HPV ASCU Note . [facility] Comment on above: TESTS RESULT FLAG UN ITS REF RANGE LAB DIAGNOSIS: 02 NEGATIVE FOR INTRAEPITHELIAL LESION OR MALIGNANCY. Specimen adequacy: 02 Satisfactory for evaluation. Endocervical and/or squamous metaplastic cells (endocervical component) are present. Performed by: 02 Vanessa Ornelas, Fruit Grader . 02 Note: Note 02 The Pap [...] <-Panic Low,>-Panic High,A-Abnormal,AA-Critical Abnormal Performed at: [address] [address] Christelle Galan MD, Performed at: =[facility] [id number] Car Dumper Operator Helper: Christelle Galan MD, Phone: [phone] Performed at: [address] [id number] [employer] D[employer] Operator Helper: Christelle Galan MD, Phone: [phone] [facility] URETHRITIS/DISCHARGE PLUS VA GINITIS (HTRX)on 04-22-2024 ATOPOBIUM VAGINAE 0.000 [facility] ATOPOBIUM VAGINAE Not detected [facility] BVAB 2,3 (BACTERIAL VAGINOSIS ASSOCIATED BACTERIA 2, 3); MOBILUNCUS SPP 24.821 Abnormal [facility] BVAB 2,3 (BACTERIAL VAGINOSIS ASSOCIATED BACTERIA 2, 3); MOBILUNCUS SPP Detected Abnormal [facility] JANET ALBICANS, PARAPSILOSIS, TROPICALIS 0.000 [facility] JANET ALBICANS, PARAPSILOSIS, TROPICALIS Not detected [facility] JANET GLABRATA 0.000 [facility] JANET GLABRATA Not detected [facility] JANET KRUSEI 0.000 [facility] JANET KRUSEI Not detected [facility] CHLAMYDIA TRACHOMATIS 0.000 [facility] CHLAMYDIA TRACHOMATIS Not detected N [facility] GARDNERELLA VAGINALIS 0.000 [facility] GARDNERELLA VAGINALIS Not detected N [facility] Interpretation and review of laboratory results Abnormal [facility] MEGASPHAERA (TYPES 1, 2) 0.000 [facility] MEGASPHAERA (TYPES 1, 2) Not detected [facility] MYCOPLASMA GENITALIUM 0.000 [facility] MYCOPLASMA GENITALIUM Not detected N [facility] NEISSERIA GONORRHOEAE 0.000 [facility] NEISSERIA GONORRHOEAE Not detected N [facility] TRICHOMONAS VAGINALIS 0.000 [facility] TRICHOMONAS VAGINALIS Not detected N S [facility] Urinalysis macro (dipstick) panel (U)on 04-20-2024 Bilirubin, UA Negative Negative - 4(70) +++ mg/dL [facility] Blood, UA Positive Negative - 50 Dain/mcL [facility] Comment on above: trace-intact Clarity, UA Clear [facility] Color, UA Yellow [facility] Glucose, UA Negative Negative - 1999(110) ++++ mg/dL [facility] Interpretation and review of laboratory results Abnormal [facility] Ketones, UA Negative Negative - 160(16) ++++ mg/dL [facility] Leukocytes, UA Trace Negative - 500+++ Chaparrita/mcL [facility] Nitrite, UA Negative Negative - Positive [facility] pH, UA 6.0 5 - 9 [facility] Protein, UA Negative Negative - 1999(20) ++++ mg/dL [facility] Spec Grav, UA 1.030 1 - 1.03 [facility] Urobilinogen, UA 0.2 0.2 - 12 mg/dL [facility] CBC without diffon Hematocrit (Bld) [Volume fraction] 37.3 % [facility] Hemoglobin (Bld) [Mass/Vol] 13.3 g/dL [facility] Rbc Mcv (Fl) By Automated Count 92.[address] [facility] No Panel Informationon 04-13 [facility] Rubella IGG immune statuson 04-13-2024 Rubella immune IgG 1.33 [facility] Syphilis Total(Unknown Syphi lis Status)on 04-13-2024 Syphilis Non-Reactive [facility] TBH BOX TEST SENT OUTon 03-17 BOX TEST SENT OUT 04/13/24 [facility] Drug Screen, Urineon 024 Amphetamine/Methamphe tamine Negative [facility] Barbiturate Screen Urine Negative [facility] Benzodiazepine Screen, Urine Negative [facility] Cocaine Metabolite Negative [facility] Methadone,Meconium Negative [facility] Opiate Quantitative Urine Negative [facility] Oxycodone Negative [facility] Phencyclidine Negative [facility] Thc Marijuana, Urine Negative [facility] HCG ( test) Ql (U)o n 04-07-2024 Interpretation and review of laboratory results Abnormal [facility] Preg Test, Ur Positive [facility] Urinalysis macro (dipstick) panel (U)on 04-07-2024 Bilirubin, UA Negative Negative - (70) +++ mg/dL [facility] Blood, UA Negative Negative - 50 Dain/mcL [facility] Clarity, UA Clear [facility] Color, UA Yellow [facility] Glucose, UA Negative Negative - 1999(110) ++++ mg/dL [facility] Interpretation and review of laboratory results Abnormal [facility] Ketones, UA Negative Negative - 160(16) ++++ mg/dL [facility] Leukocytes, UA Positive Negative - 500+++ Chaparrita/mcL [facility] Comment on above: small Nitrite, UA Negative Negative - Positive [facility] pH, UA 7.0 5 - 9 [facility] Protein, UA Negative Negative - 1999(20) ++++ mg/dL [facility] Spec Grav, UA 1.025 1 - 1.03 [facility] Urobilinogen, UA 0.2 0.2 - 12 mg/dL [facility] Automated basophil %Ordered By: Addi Ortega on 04-06-2024 Basophils/100 WBC (Bld) 0.2 % Normal . [facility] Comment on above: Performed By: #### P ILLAR TSH, PILLAR LIPID, PILLAR CBC, PILLAR BMP #### [address] Automated basophil countOrde red By: Addi Ortega on 04-06-2024 Basophils (Bld) [#/Vol] 0.0 10*3/uL Normal 0.0-0.2 [facility] Comment on above: Result Comment: PERF ORMED BY: [place] [address] PATHOLOGIST [employer] JORDI SMITH M.D. Performed By: #### P ILLAR TSH, PILLAR LIPID, PILLAR CBC, PILLAR BMP #### [facility] [address] [place] [address] Automated blood monocyte cou ntOrdered By: Addi Ortega on 04-06-2024 Monocytes (Bld) [#/Vol] 0.5 10*3/uL Normal 0.0-0.8 [facility] Comment on above: Performed By: #### P ILLAR TSH, PILLAR LIPID, PILLAR CBC, PILLAR BMP #### [facility] [address] [place] [address] Automated eosinophil %Ordere d By: Addi Ortega on 04-06-2024 Eosinophils/100 WBC (Bld) 0.5 % Normal . [facility] Comment on above: Performed By: #### P ILLAR TSH, PILLAR LIPID, PILLAR CBC, PILLAR BMP #### [facility] [address] Automated eosinophil countOr dered By: Addi Ortega on 04-06-2024 Eosinophils (Bld) [#/Vol] 0.0 10*3/uL Normal 0.0-0.45 [facility] Comment on above: Performed By: #### P ILLAR TSH, PILLAR LIPID, PILLAR CBC, PILLAR BMP #### [facility] [address] Automated monocyte %Ordered By: Addi Ortega on 04-06-2024 Monocytes/100 WBC (Bld) 5.6 % Normal . [facility] Comment on above: Performed By: #### P ILLAR TSH, PILLAR LIPID, PILLAR CBC, PILLAR BMP #### [facility] [address] Automated neutrophil %Ordere d By: Addi Ortega on 04-06-2024 Neutrophils/100 WBC (Bld) 64.9 % Normal . [facility] Comment on above: Performed By: #### P ILLAR TSH, PILLAR LIPID, PILLAR CBC, PILLAR BMP #### [facility] [address] Basophils Auto (Bld) [#/Vol] Ordered By: Addi Ortega on 04-06-2024 Basophils (Bld) [#/Vol] Automated basophil count 0.0-0.2 [facility] Basophils/100 WBC Auto (Bld) Ordered By: Addi Ortega on 04-06-2024 Basophils/100 WBC (Bld) Automated basophil % . [facility] Calcium [Mass/volume] in Ser um or PlasmaOrdered By: Addi Ortega on 04-06-2024 Calcium [Mass/Vol] 8.9 mg/dL Normal 8.6-10.3 [facility] Comment on above: Performed By: #### P ILLAR TSH, PILLAR LIPID, PILLAR CBC, PILLAR BMP #### [facility] [address] [place] [address] [place] Calcium [Mass/Vol] Calcium [Mass/volume ] in Serum or Plasma 8.6-10.3 [facility] Carbon dioxide, total [Moles /volume] in Serum or PlasmaOrdered By: Addi Ortega on 04-06-2024 CO2 [Moles/Vol] 22.0 mmol/L Normal 21.0-31.0 [facility] Comment on above: Performed By: #### P ILLAR TSH, PILLAR LIPID, PILLAR CBC, PILLAR BMP #### [facility] [address] [place] [address] [place] CO2 [Moles/Vol] Carbon dioxide, tota l [Moles/volume] in Serum or Plasma 21.0-31.0 [facility] Chloride [Moles/volume] in S ghada or PlasmaOrdered By: Addi Ortega on 04-06-2024 Chloride [Moles/Vol] 106 mmol/L Normal 98-107 [facility] Comment on above: Performed By: #### P ILLAR TSH, PILLAR LIPID, PILLAR CBC, PILLAR BMP #### [facility] [address] [place] [address] [place] Chloride [Moles/Vol] Chloride [Moles/vol ume] in Serum or Plasma 98-107 [facility] Cholesterol [Mass/volume] in Serum or PlasmaOrdered By: Addi Ortega on 04-06-2024 Cholesterol [Mass/Vol] 159 mg/dL Normal 140-200 [facility] Comment on above: Chol less than 200 m g/dl low riskChol 201-239 mg/dl borderline riskChol 240 mg/dl and greater high risk Result Comment: Chol less than 200 mg/dl low risk Chol 201-239 mg/dl borderline risk Chol 240 mg/dl and greater high risk Performed By: #### P ILLAR TSH, PILLAR LIPID, PILLAR CBC, PILLAR BMP #### [facility] [address] [place] [address] [place] Cholesterol [Mass/Vol] Cholesterol [Mass/volume] in Serum or Plasma 140-200 [facility] Comment on above: Chol less than 200 m g/dl low riskChol 201-239 mg/dl borderline riskChol 240 mg/dl and greater high risk Cholesterol in HDL [Mass/vol ume] in Serum or PlasmaOrdered By: Addi Ortega on 04-06-2024 Cholesterol in HDL [Mass/Vol] Serum or plasma high density lipoprotein (HDL) cholesterol measurement 23-92 [facility] Comment on above: HDL CHOL ATP-III CLA SSIFICATION Cardiovascular RiskHDL > or equal to 60 mg/dL LOWHDL < 40 mg/dL HIGH Cholesterol in LDL Calc [Mas s/Vol]Ordered By: Addi Ortega on 04-06-2024 Cholesterol in LDL [Mass/Vol] 95 mg/dL 0-100 [facility] Comment on above: LDL ATP III CLASSIFI CATIONLDL less than 100 mg/dL OptimalLDL 100-129 mg/dL Near or above optimalLDL 130-159 mg/dL Borderline highLDL 160-189 mg/dL HighLDL greater than 189 mg/dL Very high Cholesterol in LDL [Mass/Vol] Cholesterol in LDL [Mass/volume] in Serum or Plasma by calculation 0-100 [facility] Comment on above: LDL ATP III CLASSIFI CATIONLDL less than 100 mg/dL OptimalLDL 100-129 mg/dL Near or above optimalLDL 130-159 mg/dL Borderline highLDL 160-189 mg/dL HighLDL greater than 189 mg/dL Very high Cholesterol in VLDL Calc [Ma ss/Vol]Ordered By: Addi Ortega on 04-06-2024 Cholesterol in VLDL [Mass/Vol] 15 mg/dL [facility] Cholesterol in VLDL [Mass/Vol] Cholesterol in VLDL [Mass/volume] in Serum or Plasma by calculation [facility] Creatinine [Mass/volume] in Serum or PlasmaOrdered By: Addi Ortega on 04-06-2024 Creatinine [Mass/Vol] 0.44 mg/dL Low 0.60-1.20 [facility] Comment on above: Performed By: #### P ILLAR TSH, PILLAR LIPID, PILLAR CBC, PILLAR BMP #### [address] Creatinine [Mass/Vol] Creatinine [Mass/v olume] in Serum or Plasma Low 0.60-1.20 [facility] Employee Basic Metabolic Suero nargis 04-06-2024 GFR/1.73 sq M.predicted MDRD (S/P/Bld) [Vol rate/Area] mL/min/{1.73_m2} Normal [facility] Comment on above: Performed By: #### P ILLAR TSH, PILLAR LIPID, PILLAR CBC, PILLAR BMP #### [facility] [address] Employee Complete Blood Coun ton 04-06-2024 Mean Corpuscular HGB Conc 35.4 g/dL High 32.0-35.0 [facility] Comment on above: Performed By: #### P ILLAR TSH, PILLAR LIPID, PILLAR CBC, PILLAR BMP #### [facility] [address] NRBC% 0.0 /100{WBC} Normal 0-0.5 [facility] Comment on above: Performed By: #### P ILLAR TSH, PILLAR LIPID, PILLAR CBC, PILLAR BMP #### [facility] [address] Employee Lipid Profileon LDL Cholesterol,Calculate d 95 mg/dL Normal 0-100 [facility] Comment on above: Result Comment: LDL ATP III CLASSIFICATION LDL less than 100 mg/dL Optimal LDL 100-129 mg/dL Near or above optimal LDL 130-159 mg/dL Borderline high LDL 160-189 mg/dL High LDL greater than 189 mg/dL Very high Performed By: #### P ILLAR TSH, PILLAR LIPID, PILLAR CBC, PILLAR BMP #### [facility] [address] Triglyceride w/Reflex 79 mg/dL Normal 0-149 [facility] Comment on above: Result Comment: TRIG ATP III CLASSIFICATION TRIG less than 150 mg/dL Normal TRIG 150-199 mg/dL Borderline high TRIG 200-500 mg/dL High TRIG greater than 500 mg/dL Very high Standard traceable to the Center for Disease Conrtrol and Prevention (CDC) test method. Performed By: #### P ILLAR TSH, PILLAR LIPID, PILLAR CBC, PILLAR BMP #### [facility] [address] VLDL CHOLESTEROL 15 mg/dL Normal [facility] Comment on above: Performed By: #### P ILLAR TSH, PILLAR LIPID, PILLAR CBC, PILLAR BMP #### [facility] [address] Employee Thyroid Stim Hormon gokul 04-06-2024 Employee Thyroid Stim Hormone 2.72 u[iU]/mL Normal 0.45-5.33 [facility] Comment on above: Result Comment: PERF ORMED BY: [place] [address] PATHOLOGIST [employer] JORDI SMITH M.D. Performed By: #### P ILLAR TSH, PILLAR LIPID, PILLAR CBC, PILLAR BMP #### [address] Eosinophils Auto (Bld) [#/Vo l]Ordered By: Addi Ortega on 04-06-2024 Eosinophils (Bld) [#/Vol] Automated eosinophil count 0.0-0.45 [facility] Eosinophils/100 WBC Auto (Bl d)Ordered By: Addi Ortega on 04-06-2024 Eosinophils/100 WBC (Bld) Automated eosinophil % . [facility] Erythrocyte distribution wid th Auto (RBC) [Ratio]Ordered By: Addi Ortega on 04-06-2024 Erythrocyte distribution width (RBC) [Ratio] Erythrocyte distribution width [Ratio] by Automated count 11.9-15.3 [facility] Erythrocyte distribution wid th [Ratio] by Automated countOrdered By: Addi Ortega on 04-06-2024 Erythrocyte distribution width (RBC) [Ratio] 12.7 % Normal 11.9-15.3 [facility] Comment on above: Performed By: #### P ILLAR TSH, PILLAR LIPID, PILLAR CBC, PILLAR BMP #### [facility] [address] [place] [address] Erythrocytes [#/volume] in B lood by Automated countOrdered By: Addi Ortega on 04-06-2024 RBC (Bld) [#/Vol] 4.04 10*6/uL Normal 3.60-5.00 [facility] Comment on above: Performed By: #### P ILLAR TSH, PILLAR LIPID, PILLAR CBC, PILLAR BMP #### [facility] [address] [place] [address] [place] Glucose [Mass/volume] in Ser um or PlasmaOrdered By: Addi Ortega on 04-06-2024 Glucose [Mass/Vol] 82 mg/dL Normal 70-100 [facility] Comment on above: Performed By: #### P ILLAR TSH, PILLAR LIPID, PILLAR CBC, PILLAR BMP #### [facility] [address] [place] [address] [place] Glucose [Mass/Vol] Glucose [Mass/volume ] in Serum or Plasma 70-100 [facility] Hematocrit Auto (Bld) [Volum e fraction]Ordered By: Addi Ortega on 04-06-2024 Hematocrit (Bld) [Volume fraction] Hematocrit [Volume Fraction] of Blood by Automated count 34.0-46.4 [facility] Hematocrit [Volume Fraction] of Blood by Automated countOrdered By: Addi Ortega on 04-06-2024 Hematocrit (Bld) [Volume fraction] 37.6 % Normal 34.0-46.4 [facility] Comment on above: Performed By: #### P ILLAR TSH, PILLAR LIPID, PILLAR CBC, PILLAR BMP #### [facility] [address] [place] [address] [place] Hemoglobin [Mass/volume] in BloodOrdered By: Addi Ortega on 04-06-2024 Hemoglobin (Bld) [Mass/Vol] 13.3 g/dL Normal 11.8-15.4 [facility] Comment on above: Performed By: #### P ILLAR TSH, PILLAR LIPID, PILLAR CBC, PILLAR BMP #### [facility] [address] [place] [address] [place] Hemoglobin (Bld) [Mass/Vol] Hemoglobin [Mass/volume] in Blood 11.8-15.4 [facility] Leukocytes [#/volume] correc hamilton for nucleated erythrocytes in Blood by Automated counOrdered By: Addi Ortega on 04-06-2024 WBC corrected for nucl RBC Auto (Bld) [#/Vol] 8.9 10*3/uL 3.8-11.6 [facility] WBC corrected for nucl RBC Auto (Bld) [#/Vol] Leukocytes [#/volume] corrected for nucleated erythrocytes in Blood by Automated coun 3.8-11.6 [facility] Leukocytes [#/volume] in Blo od by Automated countOrdered By: Addi Ortega on 04-06-2024 WBC (Bld) [#/Vol] 8.9 10*3/uL Normal 3.8-11.6 [facility] Comment on above: Performed By: #### P ILLAR TSH, PILLAR LIPID, PILLAR CBC, PILLAR BMP #### [facility] [address] [place] [address] Lymphocytes Auto (Bld) [#/Vo l]Ordered By: Addi Ortega on 04-06-2024 Lymphocytes (Bld) [#/Vol] Lymphocytes [#/volume] in Blood by Automated count 1.00-4.8 [facility] Lymphocytes [#/volume] in Bl ood by Automated countOrdered By: Addi Ortega on 04-06-2024 Lymphocytes (Bld) [#/Vol] 2.5 10*3/uL Normal 1.00-4.8 [facility] Comment on above: Performed By: #### P ILLAR TSH, PILLAR LIPID, PILLAR CBC, PILLAR BMP #### [facility] [address] [place] [address] [place] Lymphocytes/100 WBC Auto (Bl d)Ordered By: Addi Ortega on 04-06-2024 Lymphocytes/100 WBC (Bld) Lymphocytes/100 leukocytes in Blood by Automated count . [facility] Lymphocytes/100 leukocytes i n Blood by Automated countOrdered By: Addi Ortega on 04-06-2024 Lymphocytes/100 WBC (Bld) 28.8 % Normal . [facility] Comment on above: Performed By: #### P ILLAR TSH, PILLAR LIPID, PILLAR CBC, PILLAR BMP #### [facility] [address] MCH Auto (RBC) [Entitic mass ]Ordered By: Addi Ortega on 04-06-2024 MCH (RBC) [Entitic mass] MCH [Entitic mass] by Automated count 24.7-34.3 [facility] MCH [Entitic mass] by Automa hamilton countOrdered By: Addi Ortega on 04-06-2024 MCH (RBC) [Entitic mass] 32.9 pg Normal 24.7-34.3 [facility] Comment on above: Performed By: #### P ILLAR TSH, PILLAR LIPID, PILLAR CBC, PILLAR BMP #### [facility] [address] [place] [address] MCHC Auto (RBC) [Mass/Vol]Or dered By: Addi Ortega on 04-06-2024 MCHC (RBC) [Mass/Vol] 35.4 g/dL High 32.0-35.0 [facility] MCHC (RBC) [Mass/Vol] MCHC [Mass/volume] by Automated count High 32.0-35.0 [facility] MCV Auto (RBC) [Entitic vol] Ordered By: Addi Ortega on 04-06-2024 MCV (RBC) [Entitic vol] MCV [Entitic volume] by Automated count 80-100 [facility] MCV [Entitic volume] by Auto mated countOrdered By: Addi Ortega on 04-06-2024 MCV (RBC) [Entitic vol] 93.2 fL Normal 80-100 [facility] Comment on above: Performed By: #### P ILLAR TSH, PILLAR LIPID, PILLAR CBC, PILLAR BMP #### [facility] [address] [place] [address] Monocytes Auto (Bld) [#/Vol] Ordered By: Addi Ortega on 04-06-2024 Monocytes (Bld) [#/Vol] Automated blood monocyte count 0.0-0.8 [facility] Monocytes/100 WBC Auto (Bld) Ordered By: Addi Ortega on 04-06-2024 Monocytes/100 WBC (Bld) Automated monocyte % . [facility] Neutrophils Auto (Bld) [#/Vo l]Ordered By: Addi Ortega on 04-06-2024 Neutrophils (Bld) [#/Vol] Neutrophils [#/volume] in Blood by Automated count 1.8-7.7 [facility] Neutrophils [#/volume] in Bl ood by Automated countOrdered By: Addi Ortega on 04-06-2024 Neutrophils (Bld) [#/Vol] 5.8 10*3/uL Normal 1.8-7.7 [facility] Comment on above: Performed By: #### P ILLAR TSH, PILLAR LIPID, PILLAR CBC, PILLAR BMP #### [facility] [address] [place] [address] [place] Neutrophils/100 WBC Auto (Bl d)Ordered By: Addi Ortega on 04-06-2024 Neutrophils/100 WBC (Bld) Automated neutrophil % . [facility] No Panel InformationOrdered By: Addi Ortega on 04-06-2024 Estimated GFR (CKD-EPI) > 60.0 mL/Min [facility] Creatinine Clearance (Chem N/A [facility] Nucleated erythrocytes [Pres ence] in Blood by Automated countOrdered By: Addi Ortega on 04-06-2024 Nucleated RBC Auto Ql (Bld) 0.0 /100{WBC} 0-0.5 [facility] Nucleated RBC Auto Ql (Bld) Nucleated erythrocytes [Presence] in Blood by Automated count 0-0.5 [facility] Platelet mean volume Auto (B ld) [Entitic vol]Ordered By: Addi Ortega on 04-06-2024 Platelet mean volume (Bld) [Entitic vol] Platelet mean volume [Entitic volume] in Blood by Automated count 6.3-10.7 [facility] Platelet mean volume [Entiti c volume] in Blood by Automated countOrdered By: Addi Ortega on 04-06-2024 Platelet mean volume (Bld) [Entitic vol] 8.8 fL Normal 6.3-10.7 [facility] Comment on above: Performed By: #### P ILLAR TSH, PILLAR LIPID, PILLAR CBC, PILLAR BMP #### [facility] [address] [place] [address] [place] Platelets Auto (Bld) [#/Vol] Ordered By: Addi Ortega on 04-06-2024 Platelets (Bld) [#/Vol] Platelets [#/volume] in Blood by Automated count 150-450 [facility] Platelets [#/volume] in Bloo d by Automated countOrdered By: Addi Ortega on 04-06-2024 Platelets (Bld) [#/Vol] 274 10*3/uL Normal 150-450 [facility] Comment on above: Performed By: #### P ILLAR TSH, PILLAR LIPID, PILLAR CBC, PILLAR BMP #### [facility] [address] [place] [address] [place] Potassium [Moles/volume] in Serum or PlasmaOrdered By: Addi Ortega on 04-06-2024 Potassium [Moles/Vol] 4.0 mmol/L Normal 3.5-5.1 [facility] Comment on above: Performed By: #### P ILLAR TSH, PILLAR LIPID, PILLAR CBC, PILLAR BMP #### [facility] [address] [place] [address] [place] Potassium [Moles/Vol] Potassium [Moles/v olume] in Serum or Plasma 3.5-5.1 [facility] RBC Auto (Bld) [#/Vol]Ordere d By: Addi Ortega on 04-06-2024 RBC (Bld) [#/Vol] Erythrocytes [#/volu me] in Blood by Automated count 3.60-5.00 [facility] Serum or plasma anion gap de terminationOrdered By: Addi Ortega on 04-06-2024 Anion gap [Moles/Vol] 11.0 mmol/L Normal 6.0-15.0 [facility] Comment on above: Performed By: #### P ILLAR TSH, PILLAR LIPID, PILLAR CBC, PILLAR BMP #### [facility] [address] [place] [id number] [place] Anion gap [Moles/Vol] Serum or plasma an ion gap determination 6.0-15.0 [facility] Serum or plasma high density lipoprotein (HDL) cholesterol measurementOrdered By: Addi Ortega on 04-06-2024 Cholesterol in HDL [Mass/Vol] 48 mg/dL Normal 23-92 [facility] Comment on above: HDL CHOL ATP-III CLA SSIFICATION Cardiovascular RiskHDL > or equal to 60 mg/dL LOWHDL < 40 mg/dL HIGH Result Comment: HDL CHOL ATP-III CLASSIFICATION Cardiovascular Risk HDL > or equal to 60 mg/dL LOW HDL < 40 mg/dL HIGH Performed By: #### P ILLAR TSH, PILLAR LIPID, PILLAR CBC, PILLAR BMP #### [facility] [address] Serum or plasma total choles terol/high density lipoprotein (HDL) cholesterol mass ratOrdered By: Addi Ortega on 04-06-2024 Cholesterol.total/Cho lesterol in HDL [Mass ratio] 3.3 {ratio} Normal <5.0 [facility] Comment on above: Performed By: #### P ILLAR TSH, PILLAR LIPID, PILLAR CBC, PILLAR BMP #### [facility] [address] Cholesterol.total/Cho lesterol in HDL [Mass ratio] Serum or plasma total cholesterol/high density lipoprotein (HDL) cholesterol mass rat <5.0 [facility] Sodium [Moles/volume] in Ser um or PlasmaOrdered By: Addi Ortega on 04-06-2024 Sodium [Moles/Vol] 135 mmol/L Low 136-145 [facility] Comment on above: Performed By: #### P ILLAR TSH, PILLAR LIPID, PILLAR CBC, PILLAR BMP #### [facility] [address] Sodium [Moles/Vol] Sodium [Moles/volume ] in Serum or Plasma Low 136-145 [facility] Thyrotropin [Units/volume] i n Serum or PlasmaOrdered By: Addi Ortega on 04-06-2024 TSH Qn 2.72 m[IU]/L 0.45-5.33 [facility] TSH Qn Thyrotropin [Units/v olume] in Serum or Plasma 0.45-5.33 [facility] Triglyceride [Mass/volume] i n Serum or PlasmaOrdered By: Addi Ortega on 04-06-2024 Triglyceride [Mass/Vol] 79 mg/dL 0-149 [facility] Comment on above: TRIG ATP III CLASSIF ICATIONTRIG less than 150 mg/dL NormalTRIG 150-199 mg/dL Borderline highTRIG 200-500 mg/dL High TRIG greater than 500 mg/dL Very highStandard traceable to the Center for Disease Conrtrol and Prevention (CDC) test method. Triglyceride [Mass/Vol] Triglyceride [Mass/volume] in Serum or Plasma 0-149 [facility] Comment on above: TRIG ATP III CLASSIF ICATIONTRIG less than 150 mg/dL NormalTRIG 150-199 mg/dL Borderline highTRIG 200-500 mg/dL High TRIG greater than 500 mg/dL Very highStandard traceable to the Center for Disease Conrtrol and Prevention (CDC) test method. Urea nitrogen [Mass/volume] in Serum or PlasmaOrdered By: Addi Ortega on 04-06-2024 Urea nitrogen [Mass/Vol] 7 mg/dL Normal 03-09 [facility] Comment on above: Performed By: #### P ILLAR TSH, PILLAR LIPID, PILLAR CBC, PILLAR BMP #### [address] Urea nitrogen [Mass/Vol] Urea nitrogen [Mass/volume] in Serum or Plasma 03-09 [facility] WBC Auto (Bld) [#/Vol]Ordere d By: Addi Ortega on 04-06-2024 WBC (Bld) [#/Vol] Leukocytes [#/volume ] in Blood by Automated count 3.8-11.6 [facility] ED Note-Physicianon 03-20-20 ED Note-Physician ED [...] and Complexity of Problems Differential Diagnosis: [] [facility] Data External documents reviewed: [] My EKG [...] with the patient. Discussed follow-up with her [employer] which she will do. Discussed return precautions. [...] Nath In 3 days 03/21/2024 EDT [address] [place] [address]- Business (1) Additional Instructions: DARWIN JONES In 3 days [address] [facility] [place] [address] [place] [address]- [phone] Business (1) Additional Instructions: Patient Education Threatened Miscarriage Subchorionic Hematoma Attestation Patient seen and evaluated by the physician retirement assistant. Attending physician was present in the emergency department and supervised care. This visit was performed by both the physician and an APC. I performed all aspects of the MDM as documented. This report was transcribed using voice recognition software. Every effort was made to ensure accuracy, however, inadvertently computerized medical management trainer mistakes may be present. Appropriate healthc (more content not included)... Normal [facility] Comment on above: Result Comment: Elec tronically Signed By: Sunny BECKHAM, Hector Rodriguez\.br\Date and Time Signed: 03/18/24 12:11 EDT\.br\Electronically Co-Signed By: Toan [place] DO\.br\Date and Time Co-Signed: 03/20/24 07:17 EDT ABO/Rhon 03-18-2024 ABO/Rh Negative Invalid Interpretation Code [facility] Comment on above: Performed By: #### [id number] #### [facility] [address] [place] [address] BLOOD BANKOrdered By: Nikky Brennan on 03-18-2024 ABO/Rh Interp Negative Invalid Interpretation Code [facility] BB Subsection BMPon 03-18-2024 Anion gap [Moles/Vol] 12 mmol/L Normal 6-16 [facility] Comment on above: Performed By: #### [id number] #### [facility] [address] [place] [address] Calcium [Mass/Vol] 9.2 mg/dL Normal 8.9-11.1 [facility] Comment on above: Performed By: #### 2 [id number] #### [facility] [address] [place] [address] Chloride [Moles/Vol] 105 mmol/L Normal 101-111 [facility] Comment on above: Performed By: #### 2 [id number] #### [facility] [address] [place] [address] CO2 [Moles/Vol] 23 mmol/L Normal 21-31 [facility] Comment on above: Performed By: #### 2 [id number] #### [facility] [address] [place] [address] Creatinine [Mass/Vol] 0.5 mg/dL Normal 0.5-1.3 [facility] Comment on above: Performed By: #### 2 [id number] #### [facility] [address] [place] [address] Glucose [Mass/Vol] 92 mg/dL Normal 55-199 [facility] Comment on above: Performed By: #### [id number] #### [facility] [address] [place] [address] Potassium [Moles/Vol] 3.8 mmol/L Normal 3.5-5.3 [facility] Comment on above: Performed By: #### 2 [id number] #### [facility] [address] [place] [address] Sodium [Moles/Vol] 136 mmol/L Normal 135-145 [facility] Comment on above: Performed By: #### 2 [id number] #### [facility] [address] [place] [address] Urea nitrogen [Mass/Vol] 9 mg/dL Normal 5-21 [facility] Comment on above: Performed By: #### 2 [id number] #### [facility] [address] [place] [address] Urea nitrogen/Creatinine [Mass ratio] 18 No Units Normal 10-20 [facility] Comment on above: Performed By: #### 2 [id number] #### [facility] [address] [place] [address] BhCG Quanton 03-18-2024 [place] [address] m[IU]/mL High 1-3 F [facility] Comment on above: Result Comment: 'F N ON < 1 - 3' ' 0.2 - 1 WEEK = 5 TO 50' ' 1 - 2 WEEKS = 50 - 500' ' 2 - 3 WEEKS = 100 - 5000' ' 3 - 4 WEEKS = 500 - 83404' ' 4 - 5 WEEKS = 1000 - 33802' ' 5 - 6 WEEKS = 03673 - 958444' ' 6 - 8 WEEKS = 05082 - 756586' ' 8 - 12 WEEKS = 82111 - 983852' Performed By: #### 2 [id number] #### [facility] [address] [place] [address] CBC w/ Auto Diffon 4 Basophils/100 WBC (Bld) 0.6 % Normal 0.0-2.0 [facility] Comment on above: Performed By: #### 2 [id number] #### [facility] [address] [place] [address] Basophils/Leukocytes Auto (Bld) [Pure # fraction] 0.0 E9/L Normal 0.0-0.2 [facility] Comment on above: Performed By: #### 2 [id number] #### [facility] [address] [place] [address] Eosinophils (Bld) [#/Vol] 0.0 E9/L Normal 0.0-0.5 [facility] Comment on above: Performed By: #### 2 [id number] #### [facility] [address] [place] [address] Eosinophils/100 WBC (Bld) 0.5 % Normal 0.0-8.0 [facility] Comment on above: Performed By: #### 2 [id number] #### [facility] [address] [place] [address] Erythrocyte distribution width (RBC) [Ratio] 12.5 % Normal 10.9-14.2 [facility] Comment on above: Performed By: #### 2 [id number] #### [facility] [address] [place] [address] Hematocrit (Bld) [Volume fraction] 40.2 % Normal 34.0-46.0 [facility] Comment on above: Performed By: #### 2 [id number] #### [facility] [address] [place] [address] Hemoglobin (Bld) [Mass/Vol] 13.8 g/dL Normal 12.0-16.0 [facility] Comment on above: Performed By: #### 2 [id number] #### [facility] [address] [place] [address] Lymphocytes (Bld) [#/Vol] 2.4 E9/L Normal 1.0-4.0 [facility] Comment on above: Performed By: #### 2 [id number] #### [facility] [address] [place] [address] Lymphocytes/100 WBC (Bld) 28.4 % Normal 14.0-50.0 [facility] Comment on above: Performed By: #### 2 [id number] #### [facility] [address] [place] [address] MCH (RBC) [Entitic mass] 32.3 pg Normal 27.0-34.0 [facility] Comment on above: Performed By: #### 2 [id number] #### [facility] [address] [place] [address] MCHC (RBC) [Mass/Vol] 34.3 g/dL Normal 31.4-36.0 [facility] Comment on above: Performed By: #### 2 [id number] #### [facility] [address] [place] [address] MCV (RBC) [Entitic vol] 94.2 fL Normal 80.0-100.0 [facility] Comment on above: Performed By: #### 2 [id number] #### [facility] [address] [place] [address] Monocytes (Bld) [#/Vol] 0.4 E9/L Normal 0.2-1.0 [facility] Comment on above: Performed By: #### 2 [id number] #### [facility] [address] [place] [address] Neutrophils (Bld) [#/Vol] 5.4 E9/L Normal 2.0-7.5 [facility] Comment on above: Performed By: #### 2 [id number] #### [facility] [address] [place] [address] Neutrophils/100 WBC (Bld) 65.4 % Normal 36.0-75.0 [facility] Comment on above: Performed By: #### 2 494954 #### [facility] [address] [place] [address] Platelet mean volume (Bld) [Entitic vol] 8.5 fL Normal 6.4-10.8 [facility] Comment on above: Performed By: #### 2 [id number] #### [facility] [address] [place] [address] Platelets (Bld) [#/Vol] 249.0 E9/L Normal 150.0-500. 0 [facility] Comment on above: Performed By: #### 2 [id number] #### [facility] [address] [place] [address] RBC (Bld) [#/Vol] 4.3 E12/L Normal 4.3-5.9 [facility] Comment on above: Performed By: #### 2 [id number] #### [facility] [address] [place] [address] WBC corrected for nucl RBC Auto (Bld) [#/Vol] 8.3 E9/L Normal 4.0-11.0 [facility] Comment on above: Performed By: #### 2 [id number] #### [facility] [address] [place] [address] CHEMISTRYOrdered By: SYSTEM SYSTEM on 03-18-2024 Anion [...] 199 mg/[place] [address] m[IU]/mL High 1 - 3 mIU/mL [facility] Comment on above: Result Comment: 'F N ON < 1 - 3' ' 0.2 - 1 WEEK = 5 TO 50' ' 1 - 2 WEEKS = 50 - 500' ' 2 - 3 WEEKS = 100 - 5000' ' 3 - 4 WEEKS = 500 - 62276' ' 4 - 5 WEEKS = 1000 - 91764' ' 5 - 6 WEEKS = 32241 - 840747' ' 6 - 8 WEEKS = 86966 - 131929' ' 8 - 12 WEEKS = 71270 - 701817' Potassium [Moles/Vol] 3.8 mmol/L Normal 3.5 - 5.3 mmol/L [facility] Sodium [Moles/Vol] 136 mmol/L Normal 135 - 145 mmol/L [facility] Urea nitrogen [Mass/Vol] 9 mg/dL Normal 5 - 21 mg/dL [facility] Urea nitrogen/Creatinine [Mass ratio] 18 mg/mg Normal 10 - 20 [facility] ED Clinical Summaryon 2023 ED Clinical Summary ED Clinical Summary [place] [id number] ED Clinical Summary Person Information Name: TAWNYA HERRING [facility] Age: 28 Years : 1995 Sex: Female Language: French PCP: DARWIN JONES CNP Marital Status: Single Phone: [phone] Visit Id: Visit Reason: Vaginal bleeding - [...] 03/18/2024 12:15:02 03/18/2024 12:15:02 03/18/2024 12:15:02 ADDRESS: [address] [place] [id number] PHYS DOC NOTES: MEDICAL INFORMATION: Prescriptions Given: Medications to Continue with No Changes Other Medications citalopram (CeleXA 20 mg Tab) 1 Tablets By Mouth every day. PATIENT EDUCATION INFORMATION: Instructions: Threatened Miscarriage; Subchorionic Hematoma Follow up: With: Address: When: Rogelio Nath [address], [address], [place] [address] Business (1) In 3 days 03/21/2024 With: Address: When: DARWIN JONES [address] [facility] [place] [phone] Business (1) In 3 days DIAGNOSIS: Subchorionic bleed; Threatened Normal [facility] ED Patient Summaryon 024 ED Patient Summary ED Patient Summary [address] [id number] Patient Discharge Instructions Person Information Name: TAWNYA HERRING Age: 28 Years Arrival Date: 03/18/2024 08:06:19 Discharge Diagnosis: Subchorionic bleed; Threatened Primary Care Physician: DARWIN JONES CNP Provider Information Primary Provider: [place]an [place] DO [employer]:None The exam and treatment you received in the Emergency Department were for an urgent problem and are not intended as complete care. It is important that you follow up with a doctor, nurse practitioner, or physician?s retirement assistant for ongoing care. If your symptoms [...] When: Rogelio [address], [place] [address] Business (1) In 3 days 03/21/2024 With: Address: When: DARWIN JONES [address] [facility] [place] [phone] [employer] (1) In 3 days In the event that this physician does not participate in your insurance network, please consult with your insurance company to find a nearby participating provider. Patient Education Materials: Threatened Miscarriage; Subchorionic Hematoma A MESSAGE TO ALL PATIENTS REGARDING OPIOIDS PRESCRIPTION OPIOIDS: WHAT YOU NEED TO KNOW Prescription opioids can be used to help relieve gafcxhfg-ib-gzmoxk pain and are often prescribed following a [...] you be (more content not included)... Normal [facility] HEMATOLOGYOrdered By: SYSTEM SYSTEM on 03-18-2024 Basophils/100 [...] 24 Bilirubin Ql (U) Negative Normal Negative [facility] Comment on above: Performed By: #### 4 [id number] #### [facility] [address] [place] [address] Clarity (U) Clear Normal Clear [facility] Comment on above: Performed By: #### 4 [id number] #### [facility] [address] [place] [address] Color (U) Yellow Normal Yellow [facility] Comment on above: Result Comment: Micr oscopic readings are only performed on those samples that meet specific criteria set forth by [facility]. Performed By: #### 4 [id number] #### [facility] [address] [place] [address] Epithelial cells.squamous Auto (Urine sed) [#/Area] 0-2 Invalid Interpretation Code [facility] Comment on above: Performed By: #### 4 [id number] #### [facility] [address] [place] [address] Glucose Ql (U) Negative Normal Negative [facility] Comment on above: Performed By: #### 4 [id number] #### [facility] [address] [place] [address] Hemoglobin Auto test strip (U) [Mass/Vol] 3+ mg/dL Abnormal Negative [facility] Comment on above: Performed By: #### 4 [id number] #### [facility] [address] [place] [address] Ketones Auto test strip Ql (U) Negative Normal Negative [facility] Comment on above: Performed By: #### 4 [id number] #### [facility] [address] [place] [address] Leukocyte esterase Auto test strip Ql (U) 25 Chaparrita/uL Normal Negative [facility] Comment on above: Performed By: #### 4 [id number] #### [facility] [address] [place] [address] Mucus Auto Ql (U) Trace Normal Negative [facility] Comment on above: Performed By: #### 4 [id number] #### [facility] [address] [place] [address] Nitrite Auto test strip Ql (U) Negative Normal Negative [facility] Comment on above: Performed By: #### 4 [id number] #### [facility] [address] [place] [address] pH (U) 7.5 [pH] Invalid Interpretation Code 5.0-9.0 [facility] Comment on above: Performed By: #### 4 [id number] #### [facility] [address] [place] [address] Protein Ql (U) Trace Abnormal Negative [facility] Comment on above: Performed By: #### 4 [id number] #### [facility] [address] [place] [address] RBC Ql (U) 31-75 Abnormal 0-3 [facility] Comment on above: Performed By: #### 4 [id number] #### [facility] [address] [place], [place] [address] Specific gravity (U) [Rel density] 1.023 Invalid Interpretation Code 1.005-1.03 0 [facility] Comment on above: Performed By: #### 4 [id number] #### [facility] [address] [place], [place] [address] Urobilinogen (U) [Mass/Vol] Negative Normal Negative [facility] Comment on above: Performed By: #### 4 [id number] #### [facility] [address] [place] [address] WBC Auto (Urine sed) [#/Area] 0-5 Normal 0-5 [facility] Comment on above: Performed By: #### 4 [id number] #### [facility] [address] [place] [address] Type of Urine collection method Clean Catch Normal [facility] Comment on above: Performed By: #### 4 [id number] #### [facility] [address] [place] [address] URINALYSISOrdered By: SYSTEM SYSTEM on 03-18-2024 Bilirubin Ql (U) Negative Normal Negativemg /dL [facility] UA Auto SS Clarity (U) Clear (03/18/24 8:17 AM) Normal Clear [facility] UA Auto SS Color (U) Yellow 1 (03/18/24 8:17 AM) Normal Yellow [facility] UA Auto SS Comment on above: Interpretive Data: M icroscopic readings are only performed on those samples that meet specific criteria set forth by [facility]. Epithelial cells.squamous Auto (Urine sed) [#/Area] 0-2 graded/HPF Invalid Interpretation Code [facility] UA Auto SS Glucose Ql (U) Negative Normal Negativemg /dL [facility]A Auto SS Hemoglobin Auto test strip (U) [Mass/Vol] 3+ mg/dL Invalid Interpretation Code Negativemg /dL [facility] UA Auto SS Ketones Auto test strip Ql (U) Negative Normal Negativemg /dL [facility] UA Auto SS Leukocyte esterase Auto test strip Ql (U) 25 Chaparrita/uL Chaparrita/uL Normal NegativeLe u/uL [facility] UA Auto SS Mucus Auto Ql (U) Trace graded/LPF Normal Negati vegr aded/LPF [facility] UA Auto SS Nitrite Auto test strip Ql (U) Negative Normal Negativemg /dL [facility] UA Auto SS pH (U) 7.5 *NA* (03/18/24 8:17 AM) Invalid Interpretation Code 5.0 - 9.0 [facility] UA Auto SS Protein Ql (U) Trace mg/dL Invalid Interpretation Code Negativemg /dL [facility] UA Auto SS RBC Ql (U) 31-75 graded/HPF Invalid Interpretation Code 0-3graded/ HPF [facility] UA Auto SS Specific gravity (U) [Rel density] 1.023 *NA* (03/18/24 8:17 AM) Invalid Interpretation Code 1.005 - 1.030 [facility] UA Auto SS Urobilinogen (U) [Mass/Vol] Negative Normal Negativemg /dL [facility] UA Auto SS WBC Auto (Urine sed) [#/Area] 0-5 graded/HPF Normal 0-5graded/ HPF [facility] UA Auto SS URINALYSISOrdered By: Hector quiroga on 03-18-2024 UA Spec Desc Clean Catch (03/18/24 8:17 AM) Normal [facility] UA Auto SS 1st Trimesteron 03-18-2024 US [...] intrauterine , with heart rate 125 bpm. [place]-rump length 3.22 mm. Mean sac diameter 1.74 [...] Transabdominal Ultrasound Performed Transvaginal Ultrasound Performed Normal [facility] US Transvaginalon 03-18-2024 US Transvaginal Exam Date/Time: 03/18/2024 11:41 EDT Reason for Exam: Vaginal bleeding Report Please review ultrasound pelvis for ultrasound transvaginal report. Ordering Provider: Hector Correa FINAL REPORT Dictated: 03/18/2024 12:06 pm Luis Alfredo Bunch MD Signed (Electronic Signature): 03/18/2024 12:06 pm Signed by: Luis Alfredo Bunch MD Transcribed by: EDWIN Technologist: MARCOS Normal [facility] eGFRon 03-18-2024 eGFR 131 mL/min/1.73 m2 Normal >=59 [facility] Comment on above: Order Comment: Order added by Discern Expert. Performed By: #### 1 [id number] #### [facility] [address] [place] [address] Progesteroneon 02-24-2024 Progesterone 9.9 ng/mL Normal . [facility] Comment on above: Result Comment: Foll icular phase 0.1 - 0.9 Luteal phase 1.8 - 23.9 Ovulation phase 0.1 - 12.0 First trimester 11.0 - 44.3 Second trimester 25.4 - 83.3 Third trimester 58.7 - 214.0 Postmenopausal 0.0 - 0.1 Performed at: [address] [id number] Car Dumper Operator Helper: Aelxis Ashton PhD, Phone: [phone] PERFORMED BY: [place] [address] [place] [address] PATHOLOGIST [employer] JORDI SMITH M.D. Performed By: #### P ANTHONY ####[facility] , Serum or plasma progesterone measurement (mass/volume)Ordered By: Brain Way on 02-24-2024 Progesterone [Mass/Vol] 9.9 ng/mL . [facility] Comment on above: Follicular phase 0.1 - 0.9 Luteal phase 1.8 - 23.9 Ovulation phase 0.1 - 12.0 First trimester 11.0 - 44.3 Second trimester 25.4 - 83.3 Third trimester 58.7 - 214.0 Postmenopausal 0.0 - 0.1Performed at: [address] [id number] Director: Alexis Ashton PhD, Phone: [phone] Progesteroneon 01-24-2024 Progesterone 8.5 ng/mL Normal . [facility] Comment on above: Result Comment: Foll icular phase 0.1 - 0.9 Luteal phase 1.8 - 23.9 Ovulation phase 0.1 - 12.0 First trimester 11.0 - 44.3 Second trimester 25.4 - 83.3 Third trimester 58.7 - 214.0 Postmenopausal 0.0 - 0.1 Performed at: [address] [id number] Car Dumper Operator Helper: Alexis Ashton PhD, Phone: [phone] PERFORMED BY: [place] [address] [place] [address] PATHOLOGIST [employer] JORDI SIMTH M.D. Performed By: #### P ANTHONY ####[facility] , Serum or plasma progesterone measurement (mass/volume)Ordered By: Brain Way on 01-24-2024 Progesterone [Mass/Vol] 8.5 ng/mL . [facility] Comment on above: Follicular phase 0.1 - 0.9 Luteal phase 1.8 - 23.9 Ovulation phase 0.1 - 12.0 First trimester 11.0 - 44.3 Second trimester 25.4 - 83.3 Third trimester 58.7 - 214.0 Postmenopausal 0.0 - 0.1Performed at: [address] [id number] Director: Alexis Ashton PhD, Phone: [phone] Progesteroneon 12-27-2023 Progesterone 13.3 ng/mL Normal . [facility] Comment on above: Result Comment: Foll icular phase 0.1 - 0.9 Luteal phase 1.8 - 23.9 Ovulation phase 0.1 - 12.0 First trimester 11.0 - 44.3 Second trimester 25.4 - 83.3 Third trimester 58.7 - 214.0 Postmenopausal 0.0 - 0.1 Performed at: [address] [id number] Car Dumper Operator Helper: Alexis Ashton PhD, Phone: [phone] PERFORMED BY: [facility] [address] [place] [address] PATHOLOGIST [employer] JORDI SMITH M.D. Performed By: #### P ANTHONY ####[facility] , Serum or plasma progesterone measurement (mass/volume)Ordered By: Brain Way on 12-27-2023 Progesterone [Mass/Vol] 13.3 ng/mL . [facility] Comment on above: Follicular phase 0.1 - 0.9 Luteal phase 1.8 - 23.9 Ovulation phase 0.1 - 12.0 First trimester 11.0 - 44.3 Second trimester 25.4 - 83.3 Third trimester 58.7 - 214.0 Postmenopausal 0.0 - 0.1Performed at: [address] [id number] Director: Alexis Ashton PhD, Phone: [phone] Progesteroneon 11-30-2023 Progesterone 16.9 ng/mL Normal . [facility] Comment on above: Result Comment: Foll icular phase 0.1 - 0.9 Luteal phase 1.8 - 23.9 Ovulation phase 0.1 - 12.0 First trimester 11.0 - 44.3 Second trimester 25.4 - 83.3 Third trimester 58.7 - 214.0 Postmenopausal 0.0 - 0.1 Performed at: [facility] [address] [place], [place] [id number] Car Dumper Operator Helper: Alexis Ashton PhD, Phone: [phone] PERFORMED BY: [place] [address] [place] [address] PATHOLOGIST COM[employer]ITION [employer] JORDI SMITH M.D. Performed By: #### P ANTHONY ####[facility] , Serum or plasma progesterone measurement (mass/volume)Ordered By: Brain Way on 11-30-2023 Progesterone [Mass/Vol] 16.9 ng/mL . [facility] Comment on above: Follicular phase 0.1 - 0.9 Luteal phase 1.8 - 23.9 Ovulation phase 0.1 - 12.0 First trimester 11.0 - 44.3 Second trimester 25.4 - 83.3 Third trimester 58.7 - 214.0 Postmenopausal 0.0 - 0.1Performed at: [facility], [place] Bridge[address] [place] [id number] Director: Alexis Ashton PhD, Phone: [phone] CNOVon 11-18-2023 CNOV Office Visit (ENDOMN ) -- TAWNYA HERRING ([id number]) 1995 F Date Time Provider Department 11/18/23 8:30 AM RUBY WHITTINGTON ENDOMN During your visit today, we recorded the following information about you: Pulse Blood pressure Weight Last Period 100/minute 132/92 110.7 kg 11/09/23 Odalis Greene 11/18/2023 7:58 AM Signed Thank you for choosing the [facility] Department of Endocrinology, Diabetes and Metabolism. Did you know that you need to call 48 hours in advance of your scheduled visit, if you are unable to make your appointment? The End[facility]inology and Metabolism [facility] thanks you for your commitment, because patients not showing to their appointment results in a lost opportunity for patients to receive [facility] health care at the [facility]. To Cancel an appointment, please choose one of the following: - Call the Appointment Call Center at [phone] - From [employer], Go to Appointments - Cancel Appts If cancelling, consider your need to reschedule to prevent further delays in your care. To Schedule an appointment, please choose one of the following: - Call the Appointment Call Center at [phone] - From [employer], Go to Appointments - Request an Appt [...] as of 11/18/2023 - cyanocobalamin/folic acid (VITAMIN [id number] ACID) 1,000-400 mcg lozg Take by mouth (more content not included)... Normal [facility] Progesteroneon 11-01-2023 Progesterone 7.1 ng/mL Normal . [facility] Comment on above: Result Comment: Foll icular phase 0.1 - 0.9 Luteal phase 1.8 - 23.9 Ovulation phase 0.1 - 12.0 First trimester 11.0 - 44.3 Second trimester 25.4 - 83.3 Third trimester 58.7 - 214.0 Postmenopausal 0.0 - 0.1 Performed at: [facility] [address] [place] [id number] Car Dumper Operator Helper: Alexis Ashton PhD, Phone: [phone] PERFORMED BY: [facility] [place] [address] PATHOLOGIST COM[employer] JORDI SMITH M.D. Performed By: #### P ANTHONY ####[facility] , Serum or plasma progesterone measurement (mass/volume)Ordered By: Brain Way on 11-01-2023 Progesterone [Mass/Vol] 7.1 ng/mL . [facility] Comment on above: Follicular phase 0.1 - 0.9 Luteal phase 1.8 - 23.9 Ovulation phase 0.1 - 12.0 First trimester 11.0 - 44.3 Second trimester 25.4 - 83.3 Third trimester 58.7 - 214.0 Postmenopausal 0.0 - 0.1Performed at: [facility], [address] Bridge[address] [place] [address] [id number] Director: Alexis Ashton PhD, Phone: [phone] Progesteroneon 10-01-2023 Progesterone 0.9 ng/mL Normal . [facility] Comment on above: Result Comment: Foll icular phase 0.1 - 0.9 Luteal phase 1.8 - 23.9 Ovulation phase 0.1 - 12.0 First trimester 11.0 - 44.3 Second trimester 25.4 - 83.3 Third trimester 58.7 - 214.0 Postmenopausal 0.0 - 0.1 Performed at: [facility] [place] [address], [place] [id number] Car Dumper Operator Helper: Alexis Ashton PhD, Phone: [phone] PERFORMED BY: [facility] [address] [place] [address] PATHOLOGIST COMPOSITION [employer] CUTTER JORDI SMITH M.D. Performed By: #### P ANTHONY ####[facility] , Serum or plasma progesterone measurement (mass/volume)Ordered By: Brain Way on 10-01-2023 Progesterone [Mass/Vol] 0.9 ng/mL . [facility] Comment on above: Follicular phase 0.1 - 0.9 Luteal phase 1.8 - 23.9 Ovulation phase 0.1 - 12.0 First trimester 11.0 - 44.3 Second trimester 25.4 - 83.3 Third trimester 58.7 - 214.0 Postmenopausal 0.0 - 0.1Performed at: CB - [facility] [address] [id number] Director: Alexis Ashton PhD, Phone: [phone] Ambulatory Visit Summaryon 0 09-29-2023 Ambulatory Visit Summary TAWNYA HERRING Romie :1995 Visit Date:09/29/2023 Ambulatory Visit Instructions Your [...] When: Where: [address] [place] [address]- Medications What How Much When Why Instructions New amoxicillin-clavulanate (Augmentin 875 mg oral tablet) 1 Tablets By Mouth Every 12 hours Sinusitis BMI 38.0-38.9,adult Duration: 10 Days Pickup at [facility] New methylPREDNISolone (Medrol Dosepack 4 mg Tab) 1 Packets By Mouth As Directed Sinusitis BMI 38.0-38.9,adult Duration: 6 Days as directed on package labeling Pickup at [facility] Unchanged citalopram (CeleXA 20 mg Tab) 1 Tablets By Mouth Every day Contact prescribing physician if questions or concerns Unchanged citalopram (citalopram 20 mg Tab) Contact prescribing physician if questions or concerns Unchanged pyridoxine (Vitamin B6 100 mg Tab) By Mouth Every day Contact prescribing physician if questions or concerns Pharmacy Information [facility]: [address] [place] [place] [id number] [phone] Allergies No Known Allergies No Known Medication [...] for choosing us for your care. Louie Rose [facility] Family Medicine Office/Clini c Noteon 09-29-2023 Family [...] with voice recognition software. Occasional wrong-word or ?hzaqn-j-mslo? substitutions may have occurred due to the [...] with improvement. She does not use any chbo-oaj-ccddurd Flonase and has not tried any other [...] # 20 tab(s), Refills(s) 0, Pharmacy: [facility], 170.2, cm, 09/29/23 10:44:00 EST, Height/Length Dosing, 112, kg, 09/29/23 10:44:00 EST, Weight Dosing methylPREDNISolone, = 1 packet(s), Oral, As Directed, as directed on package labeling, X 6 day(s), # 21 tab(s), Refills(s) 0, Pharmacy: [facility], 170.2, cm, 09/29/23 10:44:00 EST, Height/Length Dosing, 112, kg, 09/29/23 10:44:00 EST, Weight Dosing 2. BMI 38.0-38.9,adult (Z68.38: Body mass index [BMI] 38.0-38.9, adult) The standard range for ages 18 and olde (more content not included)... Normal [facility] Comment on above: Result Comment: Elec tronically [...] ? Medicines that treat allergies (antihistamines). ? Fjjt-nbv-fdujthz pain relievers. ? If caused by bacteria, [...] home: Medicines ? Take, use, or apply srin-xyk-smylrcn and prescription medicines only as told by [...] and water are not available, use hand cashier and salesperson. ? Do not smoke. Avoid being around people who are smoking (secondhand smoke). ? Keep all follow-up visits. This is important. Contact a health care provider if: ? You have a fever. ? Your symptoms get (more content not included)... Normal [facility] CNPNon 07-16-2023 CNPN Telephone (ENDCMN) -- TAWNYA HERRING ([id number]) 1995 F Date Time Provider Department 07/16/23 [facility] During your visit today, we recorded the [...] Encounter Status:Closed by KENAN GOMEZ on 07/16/23 [facility] CNOVon 06-08-2023 CNOV Office Visit (OTOLLN ) -- TAWNYA HERRING ([id number]) 1995 F Date Time Provider Department 06/08/23 [...] will be in touch with results via PlaceVinet HPI: Tawnya is a 27 year old [...] Allergies (more content not included)... Normal [facility] Alanine aminotransferase [En zymatic activity/volume] in Serum or PlasmaOrdered By: Addi Ortega on 04-08-2023 ALT [Catalytic activity/Vol] 28 U/L 7-52 [facility] Albumin [Mass/volume] in Ser um or Plasma by Bromocresol green (BCG) dye binding methoOrdered By: Addi Ortega on 04-08-2023 Albumin BCG dye [Mass/Vol] 4.8 g/dL 3.5-5.7 [facility] Alkaline phosphatase [Enzyma tic activity/volume] in Serum or PlasmaOrdered By: Addi Ortega on 04-08-2023 ALP [Catalytic activity/Vol] 61 U/L 34-104 [facility] Aspartate aminotransferase [ Enzymatic activity/volume] in Serum or PlasmaOrdered By: Addi Ortega on 04-08-2023 AST [Catalytic activity/Vol] 13 U/L 13-39 [facility] Basophils Auto (Bld) [#/Vol] Ordered By: Addi Ortega on 04-08-2023 Basophils (Bld) [#/Vol] 0.0 10*3/uL 0.0-0.2 [facility] Basophils/100 WBC Auto (Bld) Ordered By: Addi Ortega on 04-08-2023 Basophils/100 WBC (Bld) 0.4 % . [facility] Bilirubin.total [Mass/volume ] in Serum or PlasmaOrdered By: Addi Ortega on 04-08-2023 Bilirubin [Mass/Vol] 0.4 mg/dL 0.3-1.0 [facility] Calcium [Mass/volume] in Ser um or PlasmaOrdered By: Addi Ortega on 04-08-2023 Calcium [Mass/Vol] 9.5 mg/dL 8.6-10.3 [facility] Carbon dioxide, total [Moles /volume] in Serum or PlasmaOrdered By: Addi Ortega on 04-08-2023 CO2 [Moles/Vol] 25.4 mmol/L 21.0-31.0 [facility] Chloride [Moles/volume] in S ghada or PlasmaOrdered By: Addi Ortega on 04-08-2023 Chloride [Moles/Vol] 106 mmol/L 98-107 [facility] Cholesterol [Mass/volume] in Serum or PlasmaOrdered By: Addi Ortega on 04-08-2023 Cholesterol [Mass/Vol] 162 mg/dL 140-200 [facility] Comment on above: Chol less than 200 m g/dl low riskChol 201-239 mg/dl borderline riskChol 240 mg/dl and greater high risk Cholesterol in LDL Calc [Mas s/Vol]Ordered By: Addi Ortega on 04-08-2023 Cholesterol in LDL [Mass/Vol] 99 mg/dL 0-100 [facility] Comment on above: LDL ATP III CLASSIFI CATIONLDL less than 100 mg/dL OptimalLDL 100-129 mg/dL Near or above optimalLDL 130-159 mg/dL Borderline highLDL 160-189 mg/dL HighLDL greater than 189 mg/dL Very high Cholesterol in VLDL Calc [Ma ss/Vol]Ordered By: Addi Ortega on 04-08-2023 Cholesterol in VLDL [Mass/Vol] 18 mg/dL [facility] Creatinine [Mass/volume] in Serum or PlasmaOrdered By: Addi Ortega on 04-08-2023 Creatinine [Mass/Vol] 0.59 mg/dL 0.60-1.20 [facility] Eosinophils Auto (Bld) [#/Vo l]Ordered By: Addi Ortega on 04-08-2023 Eosinophils (Bld) [#/Vol] 0.1 10*3/uL 0.0-0.45 [facility] Eosinophils/100 WBC Auto (Bl d)Ordered By: Addi Ortega on 04-08-2023 Eosinophils/100 WBC (Bld) 1.3 % . [facility] Erythrocyte distribution wid th Auto (RBC) [Ratio]Ordered By: Addi Ortega on 04-08-2023 Erythrocyte distribution width (RBC) [Ratio] 12.6 % 11.9-15.3 [facility] Globulin Calc (S) [Mass/Vol] Ordered By: Addi Ortega on 04-08-2023 Globulin (S) [Mass/Vol] 2.7 g/dL [facility] Glucose [Mass/volume] in Ser um or PlasmaOrdered By: Addi Ortega on 04-08-2023 Glucose [Mass/Vol] 83 mg/dL 70-100 [facility] Hematocrit Auto (Bld) [Volum e fraction]Ordered By: Addi Ortega on 04-08-2023 Hematocrit (Bld) [Volume fraction] 39.3 % 34.0-46.4 [facility] Hemoglobin [Mass/volume] in BloodOrdered By: Addi Ortega on 04-08-2023 Hemoglobin (Bld) [Mass/Vol] 13.6 g/dL 11.8-15.4 [facility] Leukocytes [#/volume] correc hamilton for nucleated erythrocytes in Blood by Automated counOrdered By: Addi Ortega on 04-08-2023 WBC corrected for nucl RBC Auto (Bld) [#/Vol] 7.6 10*3/uL 3.8-11.6 [facility] Lymphocytes Auto (Bld) [#/Vo l]Ordered By: Addi Ortega on 04-08-2023 Lymphocytes (Bld) [#/Vol] 2.9 10*3/uL 1.00-4.8 [facility] Lymphocytes/100 WBC Auto (Bl d)Ordered By: Addi Ortega on 04-08-2023 Lymphocytes/100 WBC (Bld) 38.6 % . [facility] MCH Auto (RBC) [Entitic mass ]Ordered By: Addi Ortega on 04-08-2023 MCH (RBC) [Entitic mass] 31.6 pg 24.7-34.3 [facility] MCHC Auto (RBC) [Mass/Vol]Or dered By: Addi Ortega on 04-08-2023 MCHC (RBC) [Mass/Vol] 34.5 g/dL 32.0-35.0 [facility] MCV Auto (RBC) [Entitic vol] Ordered By: Addi Ortega on 04-08-2023 MCV (RBC) [Entitic vol] 91.7 fL 80-100 [facility] Monocytes Auto (Bld) [#/Vol] Ordered By: Addi Ortega on 04-08-2023 Monocytes (Bld) [#/Vol] 0.4 10*3/uL 0.0-0.8 [facility] Monocytes/100 WBC Auto (Bld) Ordered By: Addi Ortega on 04-08-2023 Monocytes/100 WBC (Bld) 5.8 % . [facility] Neutrophils Auto (Bld) [#/Vo l]Ordered By: Addi Ortega on 04-08-2023 Neutrophils (Bld) [#/Vol] 4.1 10*3/uL 1.8-7.7 [facility] Neutrophils/100 WBC Auto (Bl d)Ordered By: Addi Ortega on 04-08-2023 Neutrophils/100 WBC (Bld) 53.9 % . [facility] No Panel InformationOrdered By: Addi Ortega on 04-08-2023 Estimated GFR (CKD-EPI) > 60.0 mL/Min [facility] Nicotine Metabolite Negative Cutoff=25 [facility] Comment on above: Performed at: - [address] [id number] Director: Catherine Mendoza MD, Phone: [phone] Pharmacy Creatinine Clearance (Chem N/A [facility] Nucleated erythrocytes [Pres ence] in Blood by Automated countOrdered By: Addi Ortega on 04-08-2023 Nucleated RBC Auto Ql (Bld) 0.0 /100{WBC} 0-0.5 [facility] Platelet mean volume Auto (B ld) [Entitic vol]Ordered By: Addi Ortega on 04-08-2023 Platelet mean volume (Bld) [Entitic vol] 8.6 fL 6.3-10.7 [facility] Platelets Auto (Bld) [#/Vol] Ordered By: Addi Ortega on 04-08-2023 Platelets (Bld) [#/Vol] 361 10*3/uL 150-450 [facility] Potassium [Moles/volume] in Serum or PlasmaOrdered By: Addi Ortega on 04-08-2023 Potassium [Moles/Vol] 4.6 mmol/L 3.5-5.1 [facility] Protein [Mass/volume] in Ser um or PlasmaOrdered By: Addi Ortega on 04-08-2023 Protein [Mass/Vol] 7.5 g/dL 6.4-8.9 [facility] RBC Auto (Bld) [#/Vol]Ordere d By: Addi Ortega on 04-08-2023 RBC (Bld) [#/Vol] 4.29 10*6/uL 3.60-5.00 [facility] Serum or plasma albumin/glob ulin mass ratioOrdered By: Addi Ortega on 04-08-2023 Albumin/Globulin [Mass ratio] 1.8 {ratio} [facility] Serum or plasma anion gap de terminationOrdered By: Addi Ortega on 04-08-2023 Anion gap [Moles/Vol] 12.2 mmol/L 6.0-15.0 [facility] Serum or plasma high density lipoprotein (HDL) cholesterol measurementOrdered By: Addi Ortega on 04-08-2023 Cholesterol in HDL [Mass/Vol] 45 mg/dL 23- [facility] Comment on above: HDL CHOL ATP-III CLA SSIFICATION Cardiovascular RiskHDL > or equal to 60 mg/dL LOWHDL < 40 mg/dL HIGH Serum or plasma total choles terol/high density lipoprotein (HDL) cholesterol mass ratOrdered By: Addi Ortega on 04-08-2023 Cholesterol.total/Cho lesterol in HDL [Mass ratio] 3.6 {ratio} <5.0 [facility] Sodium [Moles/volume] in Ser um or PlasmaOrdered By: Addi Ortega on 04-08-2023 Sodium [Moles/Vol] 139 mmol/L 136-145 [facility] Thyrotropin [Units/volume] i n Serum or PlasmaOrdered By: Addi Ortega on 04-08-2023 TSH Qn 4.55 m[IU]/L 0.45-5.33 [facility] Triglyceride [Mass/volume] i n Serum or PlasmaOrdered By: Addi Ortega on 04-08-2023 Triglyceride [Mass/Vol] 92 mg/dL 0-149 [facility] Comment on above: TRIG ATP III CLASSIF ICATIONTRIG less than 150 mg/dL NormalTRIG 150-199 mg/dL Borderline highTRIG 200-500 mg/dL High TRIG greater than 500 mg/dL Very highStandard traceable to the Center for Disease Conrtrol and Prevention (CDC) test method. Urea nitrogen [Mass/volume] in Serum or PlasmaOrdered By: Addi Ortega on 04-08-2023 Urea nitrogen [Mass/Vol] 18 mg/dL 7-25 [facility] WBC Auto (Bld) [#/Vol]Ordere d By: Addi Ortega on 04-08-2023 WBC (Bld) [#/Vol] 7.6 10*3/uL 3.8-11.6 [facility] C Urineon 03-24-2023 Bacteria identified Cx [...] Locations R1: This test was performed at: [facility], [address] [place], [address]- , [place], Normal [facility] Comment on above: Performed By: #### 2 [id number], 0747737, 13682806, 1804884, 7311054, 5060696 #### [facility] [address] [place] [address] Abdomen/Pelvis w/o Contra ston 03-23-2023 CT [...] Oral contrast amount in ml's: 0 Normal [facility] Discharge Instructionson Discharge Instructions [id number]:127 Normal [facility] ED Note-Physicianon 03-23-20 ED Note-Physician Basic Information [...] medications. States that she was at [facility], where she did wait about 5 [...] and Complexity of Problems Differential Diagnosis: [] MDM Data External documents reviewed: [] My EKG [...] # 28 cap(s), Refills(s) 0, Pharmacy: [facility], 170.2, cm, 03/22/23 20:14:00 EDT, Height/Length Dosing, 113.5, kg, 03/22/23 20:14:00 EDT, Weight Dosing ketorolac, 30 mg = 1 mL, Injection, IV Push, Once, Stop date 03/22/23 20:51:00 EDT, STAT, Start date 03/22/23 20:51:00 EDT, 03/22/23 20:51:00 EDT ondansetron, 4 mg = 2 mL, Injection, IV Push, Once, Stop date 03/22 (more content not included)... Normal [facility] Comment on above: Result Comment: Elec tronically Signed By: Hector Correa PA-C\.br\Date and Time Signed: 03/22/23 23:35 EDT\.br\Electronically Co-Signed By: Gabriel Curtis DO.br\Date and Time Co-Signed: 03/23/23 03:21 EDT RAD - Preliminary Cat Scan R eporton 03-23-2023 RAD - Preliminary Cat Scan Report [id number]:127 Normal [facility] Auto Diffon 03-22-2023 Basophils/100 WBC (Bld) 0.5 % Normal 0.0-2.0 [facility] Comment on above: Order Comment: Order Added by Discern Expert. Performed By: #### 2 402864, 0698358, 17736402, 6962806, 2878479, [id number] #### [facility] [address] [place] [address] Basophils/Leukocytes Auto (Bld) [Pure # fraction] 0.0 E9/L Normal 0.0-0.2 [facility] Comment on above: Order Comment: Order Added by Discern Expert. Performed By: #### 2 649165, 7508203, 28806501, 2195331, 1305462, 3258167 #### [facility] [address] [place] [address] Eosinophils/100 WBC (Bld) 1.5 % Normal 0.0-8.0 [facility] Comment on above: Order Comment: Order Added by Discern Expert. Performed By: #### 2 520738, 1168715, 05419385, 1243215, 8265833, 3187012 #### [facility] [address] [place] [address] Eosinophils/Leukocyte s Auto (Bld) [Pure # fraction] 0.1 E9/L Normal 0.0-0.5 [facility] Comment on above: Order Comment: Order Added by Discern Expert. Performed By: #### 2 883998, 7013608, 78748318, 6020991, 0430559, 9525234 #### [facility] [address] [place] [address] Lymphocytes/100 WBC (Bld) 34.9 % Normal 14.0-50.0 [facility] Comment on above: Order Comment: Order Added by Discern Expert. Performed By: #### 2 864046, 4069586, 44632286, 5694142, 8811164, 6769314 #### [facility] [address] [place] [address] Lymphocytes/Leukocyte s Auto (Bld) [Pure # fraction] 3.4 E9/L Normal 1.0-4.0 [facility] Comment on above: Order Comment: Order Added by Discern Expert. Performed By: #### 2 129787, 3932589, 89822000, 7523147, 8433996, 3684540 #### [facility] [address] [place] [address] Monocytes/100 WBC (Bld) 6.0 % Normal 4.0-14.0 [facility] Comment on above: Order Comment: Order Added by Discern Expert. Performed By: #### 2 339908, 8997710, 86851074, 3011248, 3208737, 0787202 #### [facility] [address] [place] [address] Monocytes/Leukocytes Auto (Bld) [Pure # fraction] 0.6 E9/L Normal 0.2-1.0 [facility] Comment on above: Order Comment: Order Added by Mundo Expert. Performed By: #### 2 725646, 4530355, 21321785, 2924435, 3417221, 9149355 #### [facility] [address] [place] [address] Neutrophils/100 WBC (Bld) 57.1 % Normal 36.0-75.0 [facility] Comment on above: Order Comment: Order Added by Discern Expert. Performed By: #### 2 981931, 1466036, 79933761, 8407102, 0099090, 5603659 #### [facility] [address] [place] [address] Neutrophils/Leukocyte s Auto (Bld) [Pure # fraction] 5.6 E9/L Normal 2.0-7.5 [facility] Comment on above: Order Comment: Order Added by Mundo Expert. Performed By: #### 2 208052, 9108749, 01627892, 5143802, 7821229, 5679535 #### [facility] [address] [place] [address] BMPon 03-22-2023 Creatinine [Mass/Vol] 0.5 mg/dL Normal 0.5-1.3 [facility] Comment on above: Performed By: #### 2 587430, 6323418, 27114408, 7728094, 3798359, 1169196 #### [facility] [address] [place] [address] Urea nitrogen [Mass/Vol] 15 mg/dL Normal 5-21 [facility] Comment on above: Performed By: #### 2 334464, 3595103, 01303929, 2894932, 5152405, 8097701 #### [facility] [address] [place] [address] Urea nitrogen/Creatinine [Mass ratio] 30 No Units High 10-20 [facility] Comment on above: Performed By: #### 2 645883, 3747934, 75481064, 6762927, 4373249, 0552879 #### [facility] [address] [place] [address] Anion gap [Moles/Vol] 15 mmol/L Normal 6-16 [facility] Comment on above: Performed By: #### 2 377458, 7771216, 01852618, 8612465, 4440445, 6067039 #### [facility] [address] [place] [address] Calcium [Mass/Vol] 9.6 mg/dL Normal 8.9-11.1 [facility] Comment on above: Performed By: #### 2 082339, 0526018, 51248250, 7526597, 9402398, 1516031 #### [facility] [address] [place] [address] Chloride [Moles/Vol] 103 mmol/L Normal 101-111 [facility] Comment on above: Performed By: #### 2 257280, 6068937, 87774606, 8524228, 4910186, 3723397 #### [facility] [address] [place] [address] CO2 [Moles/Vol] 23 mmol/L Normal 21-31 [facility] Comment on above: Performed By: #### 2 225676, 4278134, 70224168, 5386049, 3398377, 4654951 #### [facility] [address] [place] [address] Glucose [Mass/Vol] 84 mg/dL Normal 55-199 [facility] Comment on above: Result Comment: If t his glucose result represents a fasting glucose, interpretation should refer to the following reference range: 55-99 mg/dL Performed By: #### 2 356240, 8895462, 35092815, 1683237, 8102661, 3738072 #### [facility] [address] [place] [address] Potassium [Moles/Vol] 3.7 mmol/L Normal 3.5-5.3 [facility] Comment on above: Performed By: #### 2 827035, 3661017, 51490046, 5124448, 6694830, 3950944 #### [facility] [address] [place] [address] Sodium [Moles/Vol] 137 mmol/L Normal 135-145 [facility] Comment on above: Performed By: #### 2 988902, 0645744, 65999704, 2162368, 8970528, 6635007 #### [facility] [address] [place] [address] CBC w/ Auto Diffon 3 Erythrocyte distribution width (RBC) [Ratio] 12.5 % Normal 10.9-14.2 [facility] Comment on above: Performed By: #### 2 016015, 5225626, 39950863, 8350172, 9993359, 0288045 #### [facility] [address] [place] [address] Hematocrit (Bld) [Volume fraction] 37.7 % Normal 34.0-46.0 [facility] Comment on above: Performed By: #### 2 251470, 5677716, 60912508, 5016465, 1237058, 8206267 #### [facility] [address] [place] [address] Hemoglobin (Bld) [Mass/Vol] 13.1 g/dL Normal 12.0-16.0 [facility] Comment on above: Performed By: #### 2 253237, 9078985, 80808040, 8055455, 6885778, 9208317 #### [facility] [address] [place] [address] MCH (RBC) [Entitic mass] 31.9 pg Normal 27.0-34.0 [facility] Comment on above: Performed By: #### 2 397007, 0862693, 81096095, 6322579, 9575276, 1457251 #### [facility] [address] [place] [address] MCHC (RBC) [Mass/Vol] 34.8 g/dL Normal 31.4-36.0 [facility] Comment on above: Performed By: #### 2 752458, 9876987, 69874008, 3297242, 4893359, 3639620 #### [facility] [address] [place] [address] MCV (RBC) [Entitic vol] 91.6 fL Normal 80.0-100.0 [facility] Comment on above: Performed By: #### 2 441987, 2303613, 40424394, 5885584, 6858327, 7207578 #### [facility] [address] [place] [address] Platelet mean volume (Bld) [Entitic vol] 7.6 fL Normal 6.4-10.8 [facility] Comment on above: Performed By: #### 2 895143, 2308114, 21514346, 4285088, 4389460, 1913085 #### [facility] [address] [place] [address] Platelets (Bld) [#/Vol] 306.0 E9/L Normal 150.0-500. 0 [facility] Comment on above: Performed By: #### 2 488835, 9728230, 01169014, 4246996, 3082318, 7333723 #### [facility] [address] [place] [address] RBC (Bld) [#/Vol] 4.1 E12/L Low 4.3-5.9 [facility] Comment on above: Performed By: #### 2 316434, 1729059, 83825297, 9028601, 8167885, 2093036 #### [facility] [address] [place] [address] WBC corrected for nucl RBC Auto (Bld) [#/Vol] 9.8 E9/L Normal 4.0-11.0 [facility] Comment on above: Performed By: #### 2 451004, 9384317, 87235054, 3639545, 4896533, 1575852 #### [facility] [address] [place] [address] CHEMISTRYOrdered By: SYSTEM SYSTEM on 03-22-2023 Albumin [...] Consent for Treatmenton Consent for Treatment [id number]:127 Normal [facility] ED Clinical Summaryon 2022 ED Clinical Summary (Inserted Image. Hayley ble to display) [address] [address] ED Clinical Summary Person Information Name: TAWNYA HERRING [facility] Age: 27 Years : 1995 Sex: Female Language: French PCP: DARWIN JONES CNP Marital Status: Single Phone: [phone] Visit Id: Visit Reason: Dysuria; Nausea; Flank [...] 03/22/2023 22:52:44 03/22/2023 22:52:44 03/22/2023 22:52:44 ADDRESS: [address] [place] [phone] PHYS DOC NOTES: MEDICAL INFORMATION: Prescriptions Given: New Medications [facility], [address] [place] [id number], [phone] cephalexin (Keflex 500 mg Cap) 1 Capsules By Mouth every 6 hours for 7 Days. Refills: 0. Medications to Continue with No Changes Other Medications acetaminophen-hydrocodone ([place] 325 mg-5 mg oral tablet) 2 Tablets [...] EDUCATION INFORMATION: Instructions: Urinary Tract Infection, Adult, Qmtp-sh-Xcmw Follow up: With: Address: When: DARWIN ROBERTFLORENTINORAN [address] [facility] [place] [phone] Business (1) In 3 days 03/25/2023 Comments: Follow-up with your primary care provider in 3 to 5 days. If symptoms worsen, do not improve, or new symptoms arise please report back to emergency department for further evaluation. DIAGNOSIS: UTI (urinary tract infection) Normal [facility] ED Patient Education Noteon 03-22-2023 ED Patient [...] these instructions at home: Medicines ? Take upcp-gtk-dkanvcb and prescription medicines only as told by [...] provider. Document Revised: 03/14/2021 Document Reviewed: 03/14/2021 [employer] Patient Education ? 2022 [employer]. Normal [facility] ED Patient Summaryon 023 ED Patient Summary (Inserted Image. Hayley ble to display) [place] [id number] Patient Discharge Instructions Person Information Name: TAWNYA HERRING Age: 27 Years Arrival Date: 03/22/2023 19:52:37 Discharge Diagnosis: UTI (urinary tract infection) Primary Care Physician: DARWIN JONES CNP Provider Information Primary Provider: Gabriel Curtis DO [employer]:None The exam and treatment you received in the Emergency Department were for an urgent problem and are not intended as complete care. It is important that you follow up with a doctor, nurse practitioner, or physician?s retirement assistant for ongoing care. If your symptoms [...] Instructions: With: Address: When: DARWIN JONES [address] [place] [address] [phone] Business (1) In 3 days 03/25/2023 Comments: [...] Patient Education Materials: Urinary Tract Infection, Adult, Ervd-hg-Dljq A MESSAGE TO ALL PATIENTS REGARDING OPIOIDS PRESCRIPTION OPIOIDS: WHAT YOU NEED TO KNOW Prescription opioids can be used to help relieve rlfcpbfk-vp-jalykk pain and are often prescribed following a [...] of op (more content not included)... Normal [facility] HEMATOLOGYOrdered By: SYSTEM SYSTEM on 03-22-2023 Basophils/100 [...] 03-22-2023 Albumin [Mass/Vol] 4.2 g/dL Normal 3.3-5.0 [facility] Comment on above: Performed By: #### 2 016365, 0607428, 70280926, 9578820, 0957450, 5169722 #### [facility] Laboratory [address] [place] [address] Albumin/Globulin (S) [Mass conc ratio] 1.4 Normal 1.1-2.2 [facility] Comment on above: Performed By: #### 2 000185, 9217579, 99945366, 6992861, 3812397, 0532399 #### [facility] Laboratory [address] [place] [address] ALP [Catalytic activity/Vol] 54 Int._Unit/L Normal 21-98 [facility] Comment on above: Performed By: #### 2 553231, 5328181, 06314851, 5839430, 4192759, 9899396 #### [facility] Laboratory [address] [place] [address] ALT No additional P-5'-P [Catalytic activity/Vol] 24 Int._Unit/L Normal 6-46 [facility] Comment on above: Performed By: #### 2 603233, 6541516, 01966014, 9356482, 8603504, 6092321 #### [facility] Laboratory [address] [place] [address] AST [Catalytic activity/Vol] 18 Int._Unit/L Normal 5-43 [facility] Comment on above: Performed By: #### 2 940217, 3663955, 04594577, 9303094, 0976740, 6882845 #### [facility] Laboratory [address] [place] [address] Bilirubin [Mass/Vol] 0.7 mg/dL Normal 0.0-1.1 [facility] Comment on above: Performed By: #### 2 105145, 4930377, 96789373, 3238150, 0051152, 3662092 #### [facility] Laboratory [address] [place] [address] Bilirubin.direct [Mass/Vol] 0.1 mg/dL Normal 0.1-0.4 [facility] Comment on above: Performed By: #### 2 443463, 9349518, 36943289, 9399204, 1551499, 6396932 #### [facility] Laboratory [address] [place] [address] Bilirubin.indirect [Mass or moles/Vol] 0.6 mg/dL Normal 0.1-0.9 [facility] Comment on above: Performed By: #### 2 963445, 7264080, 57009681, 6971732, 8331528, 4266222 #### [facility] Laboratory [address] [place] [address] Globulin (S) [Mass/Vol] 3.1 g/dL Normal 1.4-4.0 [facility] Comment on above: Performed By: #### 2 114003, 1983072, 00811150, 4214509, 3300677, 7854176 #### [facility] Laboratory [address] [place] [address] Protein [Mass/Vol] 7.3 g/dL Normal 6.0-7.8 [facility] Comment on above: Performed By: #### 2 970653, 4990801, 18239004, 5475619, 0348795, 3258882 #### [facility] Laboratory [address] [place] [address] Lipase Levelon 03-22-2023 Lipase [Catalytic activity/Vol] 28 U/L Normal 13-58 [facility] Comment on above: Performed By: #### 2 756523, 9398153, 10016496, 4497423, 5764308, 6100375 #### [facility] Laboratory [address] [place] [address] SEROLOGYOrdered By: Lucina Shaikh on 03-22-2023 HCG.beta subunit (U) [Moles/Vol] Negative Normal [facility] Man Sero U BetaHcg Qualon 03-22-2023 HCG.beta subunit (U) [Moles/Vol] Negative Normal [facility] Comment on above: Performed By: #### 2 206598, 8218741, 22946532, 4921940, 9411830, 4423536 #### [facility] Laboratory [address] [place] [address] UA With Cult Reflexon 2022 Bacteria LM Ql (Urine sed) TRACE Normal Trace [facility] Comment on above: Performed By: #### 2 764723, 6430396, 66150598, 2382249, 5212110, 8138963 #### [facility] Laboratory [address] [place] [address] Bilirubin Ql (U) Negative Normal Negative [facility] Comment on above: Performed By: #### 2 323275, 9112190, 31527794, 9581353, 1714440, 1196689 #### [facility] Laboratory [address] [place] [address] Clarity (U) SL CLOUDY Abnormal Clear [facility] Comment on above: Performed By: #### 2 964738, 6394993, 56774166, 2239576, 1593780, 1424627 #### [facility] Laboratory [address] [place] [address] Color (U) YELLOW Normal Yellow [facility] Comment on above: Performed By: #### 2 390846, 5767855, 09273444, 8848690, 8381011, 8752569 #### [facility] Laboratory [address] [place] [address] Crystals LM Ql (Urine sed) Present Normal [facility] Comment on above: Performed By: #### 2 031167, 4043427, 99143131, 0643425, 7019936, 7213263 #### [facility] Laboratory [address] [place] [address] Epithelial cells.squamous LM.HPF (Urine sed) [#/Area] 0-2 Normal 0-2 [facility] Comment on above: Performed By: #### 2 240104, 1515751, 09954365, 2433444, 3580011, 7215048 #### [facility] Laboratory [address] [place] [address] Glucose Test strip (U) [Mass/Vol] Negative Normal Negative [facility] Comment on above: Performed By: #### 2 402741, 5387347, 65711136, 6741727, 0375257, 5348673 #### [facility] Laboratory [address] [place] [address] Hemoglobin Ql (U) 2+ Abnormal Negative [facility] Comment on above: Performed By: #### 2 925787, 1749125, 01474283, 1310797, 1634879, 4757937 #### [facility] Laboratory [address] [place] [address] Ketones (U) [Mass/Vol] 1+ Abnormal Negative [facility] Comment on above: Performed By: #### 2 768726, 6342754, 91117882, 1682551, 6058303, 1862874 #### [facility] Laboratory [address] [place] [address] Bucoda.plasma/Lithiu m.RBC (Bld) [Mass ratio] 0-3 Normal 0-3 [facility] Comment on above: Performed By: #### 2 520732, 7150890, 64182632, 7575422, 9741332, 4755338 #### [facility] Laboratory [address] [place] [address] Mucus Ql (Urine sed) TRACE Normal [facility] Comment on above: Performed By: #### 2 948064, 5185740, 13555379, 9082872, 6207562, 6165583 #### [facility] Laboratory [address] [place] [address] Nitrite Ql (U) Negative Normal Negative [facility] Comment on above: Performed By: #### 2 569585, 8488471, 30250088, 2633578, 6724233, 9752051 #### [facility] Laboratory [address] [place] [address] pH (U) 5.5 [pH] Invalid Interpretation Code 5.0-9.0 [facility] Comment on above: Performed By: #### 2 171034, 5933488, 12716268, 7701374, 9695189, 6670468 #### [facility] Laboratory [address] [place] [address] Protein (U) [Mass/Vol] Negative Normal Negative [facility] Comment on above: Performed By: #### 2 998409, 3110448, 91076092, 6797258, 4474170, 1920088 #### [facility] Laboratory [address] [place] 6[address]757 Specific gravity (U) [Rel density] >=1.030 Invalid Interpretation Code 1.005-1.03 0 [facility] Comment on above: Performed By: #### 2 731459, 7310378, 47067071, 7075957, 0094372, 5648494 #### [facility] Laboratory [address] [place] [address] Type of Urine collection method Clean Catch Normal [facility] Comment on above: Performed By: #### 2 303056, 0691390, 82644152, 3789834, 3706748, 0832094 #### [facility] Laboratory [address] [place], [place] [address] Urobilinogen Qn (U) 0.2 {Aly'U}/dL Normal 0.0-1.0 [facility] Comment on above: Performed By: #### 2 323148, 6746009, 62995692, 9112210, 8585811, 4038709 #### [facility] Laboratory [address] [place] [address] WBC Auto Ql (U) 2+ Abnormal Negative [facility] Comment on above: Performed By: #### 2 731917, 7945888, 76079870, 4248521, 4670668, 5274800 #### [facility] Laboratory [address] [place] [address] WBC LM.HPF (Urine sed) [#/Area] 16-25 Abnormal 0-5 [facility] Comment on above: Performed By: #### 2 054932, 1927396, 14091630, 0507700, 7085147, 5585146 #### [facility] Laboratory [address] [place] [address] URINALYSISOrdered By: Elizabeth Shaikh on 03-22-2023 Bacteria [...] Interpretation Code Negative [facility] UA Auto SS Bucoda.plasma/Lithiu m.RBC (Bld) [Mass ratio] 0-3 /HPF Normal [...] Desc Clean Catch (03/22/23 8:17 PM) Normal [facility] UA Auto SS Urobilinogen Qn (U) 0.8247309 {Aly'U}/dL Normal 0.0 - 1.0 EU/dL [facility] UA Auto SS WBC Auto Ql (U) 2+ *ABN* (03/22/23 8:17 PM) Invalid Interpretation Code Negative [facility] UA Auto SS WBC LM.HPF (Urine sed) [#/Area] 16-25 /HPF Invalid Interpretation Code 0-5/HPF [facility] UA Auto SS eGFRon 03-22-2023 GFR/1.73 sq M.predicted among non-blacks MDRD (S/P/Bld) [Vol rate/Area] 133 mL/min/1.73 m2 Normal >=59 [facility] Comment on above: Order Comment: Order added by Discern Expert. Result Comment: Real Estate Associate vinh kidney disease could be indicated at eGFR's of less than 60 mL/min/1.73m2. Kidney failure is indicated at less than 15 mL/min/1.73m2. Performed By: #### 2 726856, 1720538, 91866638, 4417387, 8197430, 0827894 #### [facility] Laboratory [address] [place] [address] Alanine aminotransferase [En zymatic activity/volume] in Serum or PlasmaOrdered By: Zurdo Ortega on 02-28-2023 ALT [Catalytic activity/Vol] 21 U/L 7-52 [facility] HIV 1 and HIV-2 antibody ass ay with HIV-1 p24 antigen detectionOrdered By: Zurdo Ortega on 02-28-2023 HIV 1+2 Ab+HIV1 p24 Ag IA Ql Non-Reactive Non Reactive [facility] Comment on above: HIV NegativeHIV-1/HI V-2 antibodies and HIV-1 p24 antigen were NOTdetected. There is no laboratory evidence of HIV infection. Hepatitis B virus surface Ag [Presence] in Serum or Plasma by ImmunoassayOrdered By: Zurdo Ortega on 02-28-2023 HBV surface Ag IA Ql Negative Negative [facility] Comment on above: Performed at: [address] [id number] Director: Alexis Ashton PhD, Phone: [phone] Hepatitis C virus IgG Ab [Pr esence] in Serum or Plasma by ImmunoassayOrdered By: Zurdo Ortega on 02-28-2023 HCV IgG IA Ql Non-Reactive Non Reactive [facility] No Panel InformationOrdered By: Zurdo Ortega on 02-28-2023 Hepatitis C Interpretation See comment . [facility] Comment on above: Not infected with HC V unless early or acute infection issuspected (which may be delayed in an immunocompromisedindividual), or other evidence exists to indicate HCVinfection. Serum hepatitis B virus surf nikolas antibody detectionOrdered By: Zurdo Ortega on 02-28-2023 HBV surface Ab Ql (S) Reactive . [facility] Comment on above: Non Reactive: Incons istent with immunity, less than 10 mIU/mL Reactive: Consistent with immunity, greater than 9.9 mIU/mL PAP ACOG PANEL 2: 21 to 29on 12-17-2022 . . Normal [facility] Comment on above: Performed By: #### 4 715121 #### [facility] Laboratory [address] [place] [address] [address] Regine Fortune Age Gdln ACOG Testing - [facility] Comment on above: Performed By: #### 4 462371 #### [facility] [address] [place] [address] [address] Regine Fortune DIAGNOSIS: Comment [facility] Comment on above: Result Comment: NEGA TIVE FOR INTRAEPITHELIAL LESION OR MALIGNANCY. Performed By: #### 4 824390 #### [facility] [address] [place] [address] [address] Regine Fortune Methodology: Comment [facility] Comment on above: Result Comment: This liquid based ThinPrep(R) pap test was screened with the use of an image guided system. Performed By: #### 4 853511 #### [facility] [address] [place] [address] [address] Regine Fortune Note: Comment [facility] Comment on above: Result Comment: The Pap smear is a screening test designed to aid in the detection of premalignant and malignant conditions of the uterine cervix. It is not a diagnostic procedure and should not be used as the sole means of detecting cervical cancer. Both false-positive and false-negative reports do occur. . Performed By: #### 4 642245 #### [facility] Laboratory [address] [place] [address] Dr. Regine Fortune Performed by: Comment Normal [facility] Comment on above: Result Comment: Amna Hernandes Fruit Grader (ASCP) Performed By: #### 4 999841 #### [facility] [address] [place] [address] Dr. Regine Fortune Reflex Criteria: Comment [facility] Comment on above: Result Comment: The HPV DNA reflex criteria were not met with this specimen result therefore, no HPV testing was performed. . Performed By: #### 4 123247 #### [facility] [address] [place] [address] Dr. Regine Fortune Specimen adequacy: Comment Normal [facility] Comment on above: Result Comment: Sati sfactory for evaluation. Endocervical and/or squamous metaplastic cells (endocervical component) are present. Areas of partially obscuring inflammatory exudate are present. Performed By: #### 4 599853 #### [facility] [address] [place] [address] Dr. Regine Fortune Thyrotropin [Units/volume] i n Serum or PlasmaOrdered By: Brain Way on 12-10-2022 TSH Qn 2.86 m[IU]/L 0.45-5.33 [facility] Thyroxine (T4) free [Mass/vo lume] in Serum or PlasmaOrdered By: Brain Way on 12-10-2022 Free T4 [Mass/Vol] 0.94 ng/dL 0.61-1.12 [facility] Albumin [Mass/volume] in Ser um or PlasmaOrdered By: Ofelia Hester on 10-16-2022 Albumin [Mass/Vol] 4.1 g/dL 3.2-5.5 [facility] Alkaline phosphatase [Enzyma tic activity/volume] in Serum or PlasmaOrdered By: Ofelia Hester on 10-16-2022 ALP [Catalytic activity/Vol] 56 U/L 32-92 [facility] Amylaseon 10-16-2022 Amylase 43 U/L Normal 28-100 U/L [facility] Other Amylase [Enzymatic activity/ volume] in Serum or PlasmaOrdered By: Ofelia Hester on 10-16-2022 Amylase [Catalytic activity/Vol] 43 U/L 28-100 [facility] Aspartate aminotransferase [ Enzymatic activity/volume] in Serum or PlasmaOrdered By: Ofelia Hester on 10-16-2022 AST [Catalytic activity/Vol] 16 U/L 10-42 [facility] Bilirubin.total [Mass/volume ] in Serum or PlasmaOrdered By: Ofelia Hester on 10-16-2022 Bilirubin [Mass/Vol] 0.6 mg/dL 0.3-1.2 [facility] Calcium [Mass/volume] in Ser um or PlasmaOrdered By: Ofelia Hester on 10-16-2022 Calcium [Mass/Vol] 9.3 mg/dL 8.2-10.2 [facility] Carbon dioxide, total [Moles /volume] in Serum or PlasmaOrdered By: Ofelia Hester on 10-16-2022 CO2 [Moles/Vol] 22.1 mmol/L 22.0-30.0 [facility] Chloride [Moles/volume] in S ghada or PlasmaOrdered By: Ofleia Hester on 10-16-2022 Chloride [Moles/Vol] 105 mmol/L 95-114 [facility] Comprehensive Metabolic Pane samy 10-16-2022 Albumin [Mass/Vol] 4.477798 g/dL Normal 3.2-5.5 g/dL [facility] Other ALT [Catalytic activity/Vol] 17 U/L Normal 10-60 U/L [facility] Other Bilirubin [Mass/Vol] 0.1403518 mg/dL Normal 0.3- 1.2 mg/dL [facility] Other Calcium [Mass/Vol] 9.8262026 mg/dL Normal 8.2-10 .2 mg/dL [facility] Other CO2 [Moles/Vol] 22.45801060 mmol/L Normal 22.0-3 0.0 mmol/L [facility] Other Creatinine [Mass/Vol] 0.72536742 mg/dL Normal 0. 44-1.03 mg/dL [facility] Other Potassium [Moles/Vol] 4.09444233 mmol/L Normal 3 .5-5.1 mmol/L [facility] Other Protein [Mass/Vol] 6.204063 g/dL Normal 6.1-7.9 g/dL [facility] Other Comprehensive Metabolic Panel > 60 [facility] Other Comprehensive Metabolic Panel 2.5 g/dL [facility] Other Creatinine and Glomerular fi ltration rate.predicted panel (S/P/Bld)Ordered By: Ofelia Hester on 10-16-2022 Creatinine [Mass/Vol] 0.55 mg/dL 0.44-1.03 [facility] Estimated glomerular filtrat ion rate (GFR) non- AmericanOrdered By: Ofelia Hester on 10-16-2022 GFR/1.73 sq M.predicted among non-blacks MDRD (S/P/Bld) [Vol rate/Area] > 60 mL/Min [facility] Globulin Calc (S) [Mass/Vol] Ordered By: Ofelia Hester on 10-16-2022 Globulin (S) [Mass/Vol] 2.5 g/dL [facility] Glucose [Mass/volume] in Ser um or PlasmaOrdered By: Ofelia Hester on 10-16-2022 Glucose [Mass/Vol] 86 mg/dL 70-100 [facility] Comment on above: ADA recommended refe rence rangeRandom Glucose Reference Range is dependent on time and content of last meal. Glucose of more than 200 mg/dL in a nonstressed, ambulatory subject supports the diagnosis of Diabetes Mellitus. Laboratory - Chemistry and C hemistry - challengeOrdered By: Ofelia Hester on 10-16-2022 Lipase [Catalytic activity/Vol] 35.0 U/L 22-51 [facility] Lipaseon 10-16-2022 Lipase [Catalytic activity/Vol] 35.92374 U/L Normal 22-51 U/L [facility] Other No Panel InformationOrdered By: Ofelia Hester on 10-16-2022 Estimated GFR () > 60 mL/Min [facility] Comment on above: GFR estimated refere nce range: According to KDOQI guidelines, <60 ml/min/1.73m2 is sufficient to diagnose a patient with chronic kidney disease. Pharmacy Creatinine Clearance (Chem N/A [facility] Potassium [Moles/volume] in Serum or PlasmaOrdered By: Ofelia Hester on 10-16-2022 Potassium [Moles/Vol] 4.3 mmol/L 3.5-5.1 [facility] Protein [Mass/volume] in Ser um or PlasmaOrdered By: Ofelia Hester on 10-16-2022 Protein [Mass/Vol] 6.6 g/dL 6.1-7.9 [facility] Serum or plasma alanine galaviz otransferase measurement without P-5'-P (enzymatic activiOrdered By: Ofelia Hester on 10-16-2022 ALT No additional P-5'-P [Catalytic activity/Vol] 17 U/L 10-60 [facility] Serum or plasma albumin/glob ulin mass ratioOrdered By: Ofelia Hester on 10-16-2022 Albumin/Globulin [Mass ratio] 1.6 {ratio} [facility] Serum or plasma anion gap de terminationOrdered By: Ofelia Hester on 10-16-2022 Anion gap [Moles/Vol] 13.2 mmol/L 6.0-15.0 [facility] Sodium [Moles/volume] in Ser um or PlasmaOrdered By: Ofelia Hester on 10-16-2022 Sodium [Moles/Vol] 136 mmol/L 136-146 [facility] Urea nitrogen [Mass/volume] in Serum or PlasmaOrdered By: Ofelia Hester on 10-16-2022 Urea nitrogen [Mass/Vol] 11 mg/dL 9- [facility] T4 FREE/FREE THYROXon 2021 Free T4 [Mass/Vol] 1.3 ng/dL 0.9 - 1.7 ng/dL [facility] TSH BLDon 07-14-2022 TSH Qn 2.480 m[IU]/L 0.270 - 4.200 mIU/L [facility] VITAMIN B12 BLOODon 07-14-20 Cobalamin (Vitamin B12) [Mass/Vol] 267 pg/mL 232 - 1,245 pg/mL [facility] Quick Fluon 06-04-2022 FLUAV Ab CF (S) [Titer] Negative [facility] Other FLUBV Ab CF (S) [Titer] Negative [facility] Other Quick Strepon 06-04-2022 S. pyogenes Org specific cx Ql (Throat) Negative [facility] Other Quick Strep [facility] Other SARS-CoV-2 (COVID-19) RNA NA A+probe Ql (Resp)on 06-04-2022 SARS-CoV-2 (COVID-19) RNA LAUREN+probe Ql (Unsp spec) Negative [facility] Other TSH DL <= 0.005 mIU/L QnOrde red By: Darwin Jones on 04-14-2022 TSH Qn 6.39 m[IU]/L 0.45-5.33 [facility] Thyroxine (T4) free [Mass/vo lume] in Serum or PlasmaOrdered By: Darwin Jones on 04-14-2022 Free T4 [Mass/Vol] 0.82 ng/dL 0.61-1.12 [facility] Triiodothyronine (T3) Free [ Mass/volume] in Serum or PlasmaOrdered By: Darwin Jones on 04-14-2022 Free T3 [Mass/Vol] 4.08 pg/mL 2.50-3.90 [facility] Serum or plasma calcium luis urement (mass/volume)Ordered By: Saad Valera on 04-06-2022 Calcium [Mass/Vol] 9.4 mg/dL 8.2-10.2 [facility] Serum or plasma intact parat hyroid hormone measurement (mass/volume)Ordered By: Saad Valera on 04-06-2022 Parathyrin.intact [Mass/Vol] 54.8 pg/mL 12 [facility] CHEMISTRYOrdered By: Lab ROP User on 02-18-2022 Glucose [Mass/Vol] 106 mg/dL High 55 - 99 mg/dL [facility] POC Subsection Comment on above: Result Comment: Aurelia breana Meter POC Device SN [id number] Invalid Interpretation Code [facility] POC Subsection POC User ID [id number] Invalid Interpretation Code [facility] POC Subsection POC Username OBINNA EPPERSON Invalid Interpretation Code [facility] POC Subsection Serum or plasma thyroglobuli n antibody assay (units/volume)Ordered By: Darwin Jones on 02-13-2022 Thyroglobulin Ab Qn 971.2 [IU]/mL 0.0-0.9 [facility] Comment on above: Thyroglobulin Antibo dy measured by Lang Ma Methodology Performed at: [facility] [address] [id number] Car Dumper Operator Helper: Alexis Ashton PhD, Phone: [phone] Serum or plasma thyroperoxid ase antibody assay (units/volume)Ordered By: Darwin Joens on 02-13-2022 TPO Ab Qn 327 [IU]/mL 0-34 [facility] Thyroxine (T4) free [Mass/vo lume] in Serum or PlasmaOrdered By: Darwin Jones on 02-13-2022 Free T4 [Mass/Vol] 0.66 ng/dL 0.61-1.12 [facility] Triiodothyronine (T3) Free [ Mass/volume] in Serum or PlasmaOrdered By: Darwin Jones on 02-13-2022 Free T3 [Mass/Vol] 4.04 pg/mL 2.50-3.90 [facility] Albumin [Mass/volume] in Ser um or PlasmaOrdered By: Addi Ortega on 02-10-2022 Albumin [Mass/Vol] 4.1 g/dL 3.2-5.5 [facility] Basophils Auto (Bld) [#/Vol] Ordered By: Addi Ortega on 02-10-2022 Basophils (Bld) [#/Vol] 0.0 10*3/uL 0.0-0.2 [facility] Basophils/100 WBC Auto (Bld) Ordered By: Addi Ortega on 02-10-2022 Basophils/100 WBC (Bld) 0.4 % . [facility] Blood hemoglobin measurement (mass/volume)Ordered By: Addi Ortega on 02-10-2022 Hemoglobin (Bld) [Mass/Vol] 14.1 g/dL 11.8-15.4 [facility] Blood leukocytes automated c ount (number/volume)Ordered By: Addi Ortega on 02-10-2022 WBC (Bld) [#/Vol] 7.3 10*3/uL 4.5-11.0 [facility] Cholesterol [Mass/volume] in Serum or PlasmaOrdered By: Addi Ortega on 02-10-2022 Cholesterol [Mass/Vol] 195 mg/dL 140-200 [facility] Comment on above: Chol less than 200 m g/dl low risk Chol 201-239 mg/dl borderline risk Chol 240 mg/dl and greater high risk Cholesterol in LDL Calc [Mas s/Vol]Ordered By: Addi Ortega on 02-10-2022 Cholesterol in LDL [Mass/Vol] 113 mg/dL 0-100 [facility] Comment on above: LDL ATP III CLASSIFI CATION LDL less than 100 mg/dL Optimal LDL 100-129 mg/dL Near or above optimal LDL 130-159 mg/dL Borderline high LDL 160-189 mg/dL High LDL greater than 189 mg/dL Very high Cholesterol in VLDL Calc [Ma ss/Vol]Ordered By: Addi Ortega on 02-10-2022 Cholesterol in VLDL [Mass/Vol] 26 mg/dL [facility] Creatinine and Glomerular fi ltration rate.predicted panel (S/P/Bld)Ordered By: Addi Ortega on 02-10-2022 Creatinine [Mass/Vol] 0.71 mg/dL 0.44-1.03 [facility] Eosinophils Auto (Bld) [#/Vo l]Ordered By: Addi Ortega on 02-10-2022 Eosinophils (Bld) [#/Vol] 0.1 10*3/uL 0.0-0.45 [facility] Eosinophils/100 WBC Auto (Bl d)Ordered By: Addi Ortega on 02-10-2022 Eosinophils/100 WBC (Bld) 1.5 % . [facility] Erythrocyte distribution wid th Auto (RBC) [Ratio]Ordered By: Addi Ortega on 02-10-2022 Erythrocyte distribution width (RBC) [Ratio] 14.0 % 11.9-15.3 [facility] Estimated glomerular filtrat ion rate (GFR) non- AmericanOrdered By: Addi Ortega on 02-10-2022 GFR/1.73 sq M.predicted among non-blacks MDRD (S/P/Bld) [Vol rate/Area] > 60 mL/Min [facility] Globulin Calc (S) [Mass/Vol] Ordered By: Addi Ortega on 02-10-2022 Globulin (S) [Mass/Vol] 2.8 g/dL [facility] Hematocrit Auto (Bld) [Volum e fraction]Ordered By: Addi Ortega on 02-10-2022 Hematocrit (Bld) [Volume fraction] 40.3 % 34.0-46.4 [facility] Laboratory - Chemistry and C hemistry - challengeOrdered By: Addi Ortega on 02-10-2022 Glucose [Mass/Vol] 90 mg/dL 70-100 [facility] Laboratory - Hematology and Cell countsOrdered By: Addi Ortega on 02-10-2022 Nucleated RBC/100 WBC (Bld) [Ratio] 0.1 % 0-0.5 [facility] Lymphocytes Auto (Bld) [#/Vo l]Ordered By: Addi Ortega on 02-10-2022 Lymphocytes (Bld) [#/Vol] 3.3 10*3/uL 1.00-4.8 [facility] Lymphocytes/100 WBC Auto (Bl d)Ordered By: Addi Ortega on 02-10-2022 Lymphocytes/100 WBC (Bld) 45.2 % . [facility] MCH Auto (RBC) [Entitic mass ]Ordered By: Addi Ortega on 02-10-2022 MCH (RBC) [Entitic mass] 33.0 pg 24.7-34.3 [facility] MCHC Auto (RBC) [Mass/Vol]Or dered By: Addi Ortega on 02-10-2022 MCHC (RBC) [Mass/Vol] 34.9 g/dL 32.0-35.0 [facility] MCV Auto (RBC) [Entitic vol] Ordered By: Addi Ortega on 02-10-2022 MCV (RBC) [Entitic vol] 94.6 fL 80-100 [facility] Monocyte %Ordered By: Addi Ortega on 02-10-2022 Monocyte % 134 mg/dL 35-149 [facility] Comment on above: TRIG ATP III CLASSIF ICATION TRIG less than 150 mg/dL Normal TRIG 150-199 mg/dL Borderline high TRIG 200-500 mg/dL High TRIG greater than 500 mg/dL Very high Standard traceable to the Center for Disease Conrtrol and Prevention (CDC) test method. Monocytes Auto (Bld) [#/Vol] Ordered By: Addi Ortega on 02-10-2022 Monocytes (Bld) [#/Vol] 0.5 10*3/uL 0.0-0.8 [facility] Monocytes/100 WBC Auto (Bld) Ordered By: Addi Ortega on 02-10-2022 Monocytes/100 WBC (Bld) 6.3 % . [facility] Neutrophils Auto (Bld) [#/Vo l]Ordered By: Addi Ortega on 02-10-2022 Neutrophils (Bld) [#/Vol] 3.4 10*3/uL 1.8-7.7 [facility] Neutrophils/100 WBC Auto (Bl d)Ordered By: Addi Ortega on 02-10-2022 Neutrophils/100 WBC (Bld) 46.6 % . [facility] No Panel InformationOrdered By: Addi Ortega on 02-10-2022 Estimated GFR () > 60 mL/Min [facility] Comment on above: GFR estimated refere nce range: According to KDOQI guidelines, <60 ml/min/1.73m2 is sufficient to diagnose a patient with chronic kidney disease. Nicotine Metabolite Negative Cutoff=25 [facility] Comment on above: Performed at: [facility] [address] [id number] [employer] Operator Helper: Catherine Mendoza MD, Phone: [phone] Pharmacy Creatinine Clearance (Chem N/A [facility] Platelet mean volume Auto (B ld) [Entitic vol]Ordered By: Addi Ortega on 02-10-2022 Platelet mean volume (Bld) [Entitic vol] 8.4 fL 6.3-10.7 [facility] Platelets Auto (Bld) [#/Vol] Ordered By: Addi Ortega on 02-10-2022 Platelets (Bld) [#/Vol] 321 10*3/uL 150-450 [facility] Protein [Mass/volume] in Ser um or PlasmaOrdered By: Addi Ortega on 02-10-2022 Protein [Mass/Vol] 6.9 g/dL 6.1-7.9 [facility] RBC Auto (Bld) [#/Vol]Ordere d By: Addi Ortega on 02-10-2022 RBC (Bld) [#/Vol] 4.26 10*6/uL 3.60-5.00 [facility] Serum or plasma alanine galaviz otransferase measurement without P-5'-P (enzymatic activiOrdered By: Addi Ortega on 02-10-2022 ALT No additional P-5'-P [Catalytic activity/Vol] 26 U/L 10-60 [facility] Serum or plasma albumin/glob ulin mass ratioOrdered By: Addi Ortega on 02-10-2022 Albumin/Globulin [Mass ratio] 1.5 {ratio} [facility] Serum or plasma alkaline hosea sphatase measurement (enzymatic activity/volume)Ordered By: Addi Ortega on 02-10-2022 ALP [Catalytic activity/Vol] 47 U/L 32-92 [facility] Serum or plasma aspartate am inotransferase measurement (enzymatic activity/volume)Ordered By: Addi Ortega on 02-10-2022 AST [Catalytic activity/Vol] 18 U/L 10-42 [facility] Serum or plasma calcium luis urement (mass/volume)Ordered By: Addi Ortega on 02-10-2022 Calcium [Mass/Vol] 9.3 mg/dL 8.2-10.2 [facility] Serum or plasma chloride radha surement (moles/volume)Ordered By: Addi Ortega on 02-10-2022 Chloride [Moles/Vol] 99 mmol/L 95-114 [facility] Serum or plasma high density lipoprotein (HDL) cholesterol measurementOrdered By: Addi Ortega on 02-10-2022 Cholesterol in HDL [Mass/Vol] 55 mg/dL 35-85 [facility] Comment on above: HDL CHOL ATP-III CLA SSIFICATION Cardiovascular Risk HDL > or equal to 60 mg/dL LOW HDL < 40 mg/dL HIGH Serum or plasma potassium me asurement (moles/volume)Ordered By: Addi Ortega on 02-10-2022 Potassium [Moles/Vol] 4.1 mmol/L 3.5-5.1 [facility] Serum or plasma sodium measu rement (moles/volume)Ordered By: Addi Ortega on 02-10-2022 Sodium [Moles/Vol] 135 mmol/L 136-146 [facility] Serum or plasma total biliru bin measurement (mass/volume)Ordered By: Addi Ortega on 02-10-2022 Bilirubin [Mass/Vol] 0.7 mg/dL 0.3-1.2 [facility] Serum or plasma total carbon dioxide measurement (moles/volume)Ordered By: Addi Ortega on 02-10-2022 CO2 [Moles/Vol] 23.3 mmol/L 22.0-30.0 [facility] Serum or plasma total choles terol/high density lipoprotein (HDL) cholesterol mass ratOrdered By: Addi Ortega on 02-10-2022 Cholesterol.total/Cho lesterol in HDL [Mass ratio] 3.5 {ratio} <5.0 [facility] Serum or plasma urea nitroge n measurement (mass/volume)Ordered By: Addi Ortega on 02-10-2022 Urea nitrogen [Mass/Vol] 17 mg/dL 9-23 [facility] TSH DL <= 0.005 mIU/L QnOrde red By: Addi Ortega on 02-10-2022 TSH Qn 57.67 m[IU]/L 0.45-5.33 [facility] No Panel Informationon 09-03 6 {mm/hr} Normal 0-34 -[facility] [address] DO Work Phone: [...] Vital Signs Recorded: 03Sep2021 10:02AMRecorded: 03Sep2021 09:55AM [id number], LUE, [id number], RUE, Sitting [id number], LUE, [id number], RUE, Sitting Heart Rate72, Apical Height5 ft 7 in Cegdru648 lb 9.6 oz BMI Bcrgwfahxq19.36 kg/m2 BSA Calculated2.05 Tobacco Useb) No EKG [...] . Sign (more content not included)... Normal [employer] Tobacco Screening.on 022 Tobacco use status [facility] b) No -[facility] [address] DO Work Phone: Vital Signs Date Time Vital Sign Value Performing Clinician Facility 09-19-2024 14:33-0500 Body mass index (BMI) [Ratio] 39.49 kg/m2 Brain Seamus DO Work Phone: [facility] 09-19-2024 14:33-0500 Body weight 114.36 kg Brain Seamus DO Work Phone: [facility] 09-19-2024 14:33-0500 Diastolic blood pressure 70 mm[Hg] Brain Seamus DO Work Phone: [facility] 09-19-2024 14:33-0500 Systolic blood pressure 120 mm[Hg] Brain Seamus DO Work Phone: [facility] 09-07-2024 14:44-0500 Body mass index (BMI) [Ratio] 39.75 kg/m2 Mya MCMILLAN Work Phone: [facility] 09-07-2024 14:44-0500 Body weight 115.12 kg Mya MCMILLAN Work Phone: [facility] 09-07-2024 14:44-0500 Diastolic blood pressure 82 mm[Hg] Mya MCMILLAN Work Phone: [facility] 09-07-2024 14:44-0500 Systolic blood pressure 120 mm[Hg] Mya MCMILLAN Work Phone: [facility] 09-06-2024 14:04-0500 Body temperature 97.88 [degF] Flash Franco [facility] 09-06-2024 14:04-0500 Diastolic blood pressure 77 mm[Hg] Flash Franco [facility] 09-06-2024 14:04-0500 Heart rate 101 /min Flash Franco [facility] 09-06-2024 14:04-0500 Respiratory rate 18 /min Flash Franco [facility] 09-06-2024 14:04-0500 SaO2% (BldA) [Mass fraction] 99 % Flash Franco [facility] 09-06-2024 14:04-0500 Systolic blood pressure 122 mm[Hg] Flash Franco [facility] 09-05-2024 15:45-0500 Hourly Rounding Rogelio Nath [facility] Comment on above: Result Comment: discharge instructions g darek. monitors off and pt up to dress. 09-05-2024 15:35-0500 Hourly Rounding Rogelio Pham [facility] Comment on above: Result Comment: pt was able to keep spri te and lemon ice down. Wants to go home. 09-05-2024 14:49-0500 Hourly Rounding Rogelio Pham [facility] Comment on above: Result Comment: sprite, lemon ice and ju ice given per pt request. 09-05-2024 07:35-0500 Body temperature 98.24 [degF] Rogelio Nath [facility] 09-05-2024 07:35-0500 Diastolic blood pressure 42 mm[Hg] Rogelio Nath [facility] 09-05-2024 07:35-0500 Heart rate 109 /min Rogelio Nath [facility] 09-05-2024 07:35-0500 Mean blood pressure 65 mm[Hg] Rogelio Nath [facility] 09-05-2024 07:35-0500 Respiratory rate 18 /min Rogelio Nath [facility] 09-05-2024 07:35-0500 Systolic blood pressure 111 mm[Hg] Rogelio Nath [facility] 09-05-2024 07:30-0500 Blood Pressure Location Rogelio Nath [facility] 09-05-2024 04:32-0500 Blood Pressure Location Rogelio Nath [facility] 09-05-2024 04:32-0500 Body temperature 98.24 [degF] Rogelio Nath [facility] 09-05-2024 04:32-0500 Diastolic blood pressure 72 mm[Hg] Rogelio Nath [facility] 09-05-2024 04:32-0500 Heart rate 104 /min Rogelio Nath [facility] 09-05-2024 04:32-0500 Mean blood pressure 90 mm[Hg] Rogelio Nath [facility] 09-05-2024 04:32-0500 Respiratory rate 16 /min Rogelio Nath [facility] 09-05-2024 04:32-0500 SaO2% (BldA) [Mass fraction] 98 % Rogelio Nath [facility] 09-05-2024 04:32-0500 Systolic blood pressure 127 mm[Hg] Rogelio Nath [facility] 09-05-2024 04:00-0500 Diastolic blood pressure 64 mm[Hg] Rogelio Nath [facility] 09-05-2024 04:00-0500 Heart rate 115 /min Rogelio Nath [facility] 09-05-2024 04:00-0500 Mean blood pressure 86 mm[Hg] Rogelio Nath [facility] 09-05-2024 04:00-0500 Systolic blood pressure 129 mm[Hg] Rogelio Nath [facility] 09-05-2024 03:06-0500 Body temperature 97.7 [degF] Rogelio Nath [facility] 09-05-2024 03:06-0500 Heart rate 128 /min Rogelio Nath [facility] 09-05-2024 03:06-0500 Respiratory rate 20 /min Rogelio Nath [facility] 09-05-2024 03:06-0500 SaO2% (BldA) [Mass fraction] 98 % Rogelio Nath [facility] 08-25-2024 12:21-0500 Body height 170.18 cm [facility] [employer] Work Phone: [facility] 08-25-2024 12:21-0500 Body mass index (BMI) [Ratio] 39.6 kg/m2 [facility] [employer] Work Phone: [facility] 08-25-2024 12:21-0500 Body weight 114.75 kg Darwin Larasullivan [employer] Work Phone: [facility] 08-25-2024 12:21-0500 Diastolic blood pressure 84 mm[Hg] [facility] [employer] Work Phone: [facility] 08-25-2024 12:21-0500 Heart rate 108 /min Darwin Easterwood [employer] Work Phone: [facility] 08-25-2024 12:21-0500 Respiratory rate 18 /min Darwin Easterwood [employer] Work Phone: [facility] 08-25-2024 12:21-0500 SaO2% (BldA) [Mass fraction] 98 % Darwin Easterwood [employer] Work Phone: [facility] 08-25-2024 12:21-0500 Systolic blood pressure 132 mm[Hg] Darwin Easterwood [employer] Work Phone: [facility] 08-23-2024 11:00-0500 Body mass index (BMI) [Ratio] 40.16 kg/m2 Brain Seamus DO Work Phone: [facility] 08-23-2024 11:00-0500 Body weight 116.3 kg Brain Seamus DO Work Phone: [facility] 08-23-2024 11:00-0500 Diastolic blood pressure 78 mm[Hg] Brain Seamus DO Work Phone: [facility] 08-23-2024 11:00-0500 Systolic blood pressure 120 mm[Hg] Brain Seamus DO Work Phone: [facility] 07-11-2024 13:09-0500 Body mass index (BMI) [Ratio] 38.97 kg/m2 Brain Seamus DO Work Phone: [facility] 07-11-2024 13:09-0500 Body weight 112.86 kg Brain Seamus DO Work Phone: [facility] 07-11-2024 13:09-0500 Diastolic blood pressure 76 mm[Hg] Brain Seamus DO Work Phone: [facility] 07-11-2024 13:09-0500 Systolic blood pressure 120 mm[Hg] Brain Seamus DO Work Phone: [facility] 06-28-2024 08:04-0500 Body weight Darwin Jones [employer] Work Phone: [facility] Comment on above: Not provided. 2024 14:13-0500 Diastolic blood pressure 78 mm[Hg] Hayden Reilly MD Work Phone: [facility] 2024 14:13-0500 Heart rate 88 /min Hayden Reilly MD Work Phone: [facility] 2024 14:13-0500 Systolic blood pressure 125 mm[Hg] Hayden Reilly MD Work Phone: [facility] 2024 13:18-0500 Body height 170.2 cm Hayden Reilly MD Work Phone: [facility] 06-12-2024 10:19-0400 Body mass index (BMI) [Ratio] 38.37 kg/m2 Brain Seamus DO Work Phone: [facility] 06-12-2024 10:19-0400 Body weight 111.13 kg Brain Seamus DO Work Phone: [facility] 06-12-2024 10:19-0400 Diastolic blood pressure 80 mm[Hg] Brain Seamus DO Work Phone: [facility] 06-12-2024 10:19-0400 Systolic blood pressure 122 mm[Hg] Brain Seamus DO Work Phone: [facility] 05-11-2024 11:04-0400 Body height 170.18 cm [employer] Darwin Joneserwood Work Phone: [facility] 05-11-2024 11:04-0400 Body mass index (BMI) [Ratio] 38.2 kg/m2 [employer] Darwin Easterwood Work Phone: [facility] 05-11-2024 11:04-0400 Body temperature 97.8 [degF] [employer] Darwin Joneserjillian Work Phone: [facility] 05-11-2024 11:04-0400 Body weight 110.67 kg [employer] Darwin Joneserjillian Work Phone: [facility] 05-11-2024 11:04-0400 Diastolic blood pressure 74 mm[Hg] [employer] Darwin Roberterjillian Work Phone: [facility] 05-11-2024 11:04-0400 Heart rate 90 /min [employer] Darwin Joneserjillian Work Phone: [facility] 05-11-2024 11:04-0400 Respiratory rate 20 /min [employer] Darwin Joneserjillian Work Phone: [facility] 05-11-2024 11:04-0400 SaO2% (BldA) [Mass fraction] 98 % [employer] Darwin Joneserjillian Work Phone: [facility] 05-11-2024 11:04-0400 Systolic blood pressure 126 mm[Hg] [employer] Darwin Joneserjillian Work Phone: [facility] 05-10-2024 13:50-0400 Body mass index (BMI) [Ratio] 38.39 kg/m2 Brain Seamus DO Work Phone: [facility] 05-10-2024 13:50-0400 Body weight 111.19 kg Brain Seamus DO Work Phone: [facility] 05-10-2024 13:50-0400 Diastolic blood pressure 76 mm[Hg] Brain Seamus DO Work Phone: [facility] 05-10-2024 13:50-0400 Systolic blood pressure 120 mm[Hg] Brain Seamus DO Work Phone: [facility] 04-20-2024 10:37-0400 Body mass index (BMI) [Ratio] 38.53 kg/m2 Brain Seamus DO Work Phone: [facility] 04-20-2024 10:37-0400 Body weight 111.58 kg Brain Seamus DO Work Phone: [facility] 04-20-2024 10:37-0400 Diastolic blood pressure 76 mm[Hg] Brain Seamus DO Work Phone: [facility] 04-20-2024 10:37-0400 Systolic blood pressure 122 mm[Hg] Brain Seamus DO Work Phone: [facility] 04-07-2024 09:42-0400 Body mass index (BMI) [Ratio] 38.86 kg/m2 [facility] Nurse [facility] 04-07-2024 09:42-0400 Body weight 112.55 kg [facility] Nurse [facility] 04-07-2024 09:42-0400 Diastolic blood pressure 70 mm[Hg] [facility] Nurse [facility] 04-07-2024 09:42-0400 Systolic blood pressure 120 mm[Hg] [facility] Nurse [facility] 03-18-2024 11:50-0400 Diastolic blood pressure 83 mm[Hg] Toan Steine [facility] 03-18-2024 11:50-0400 Heart rate 75 /min Toan Steine [facility] 03-18-2024 11:50-0400 Mean blood pressure 97 mm[Hg] Toan Steine [facility] 03-18-2024 11:50-0400 Respiratory rate 16 /min Toan Steine [facility] 03-18-2024 11:50-0400 SaO2% (BldA) [Mass fraction] 98 % Toan Jaya [facility] 03-18-2024 11:50-0400 Systolic blood pressure 126 mm[Hg] Toan Jaya [facility] 03-18-2024 09:46-0400 Hourly Rounding Toan Steine [facility] 03-18-2024 09:11-0400 Hourly Rounding [place] [facility] 03-18-2024 08:10-0400 Body temperature 98.6 [degF] [place] [facility] 03-18-2024 08:10-0400 Diastolic blood pressure 91 mm[Hg] [place] [facility] 03-18-2024 08:10-0400 Heart rate 98 /min [place] [facility] 03-18-2024 08:10-0400 Hourly Rounding [place] [facility] 03-18-2024 08:10-0400 Respiratory rate 17 /min [place] [facility] 03-18-2024 08:10-0400 SaO2% (BldA) [Mass fraction] 98 % [place] [facility] 03-18-2024 08:10-0400 Systolic blood pressure 135 mm[Hg] [place] [facility] 01-25-2024 08:59-0400 Body height 170.18 cm [employer]Alayna Orosco [employer] Work Phone: [facility] 01-25-2024 08:59-0400 Body mass index (BMI) [Ratio] 37.4 kg/m2 [employer] ACC[employer]Alayna Edgara [employer] Work Phone: [facility] 01-25-2024 08:59-0400 Body temperature 98 [degF] [employer] Darwin [employer] Work Phone: [facility] 01-25-2024 08:59-0400 Body weight 108.4 kg [employer] ACC[employer]Alayna Orosco [employer] Work Phone: [facility] 01-25-2024 08:59-0400 Diastolic blood pressure 80 mm[Hg] [employer] Darwin Easterwood Work Phone: [facility] 01-25-2024 08:59-0400 Heart rate 98 /min [employer] Darwin Easterwood Work Phone: [facility] 01-25-2024 08:59-0400 Respiratory rate 20 /min [employer] Darwin Easterwood Work Phone: [facility] 01-25-2024 08:59-0400 SaO2% (BldA) [Mass fraction] 99 % [employer] Darwin Easterwood Work Phone: [facility] 01-25-2024 08:59-0400 Systolic blood pressure 122 mm[Hg] [employer] Darwin Easterwood Work Phone: [facility] 12-24-2023 09:56-0400 Body height 170.18 cm [employer] Darwin Easterwood Work Phone: [facility] 12-24-2023 09:56-0400 Body mass index (BMI) [Ratio] 37.7 kg/m2 [employer] Darwin Easterwood Work Phone: [facility] 12-24-2023 09:56-0400 Body temperature 97.6 [degF] [employer] Darwin Easterwood Work Phone: [facility] 12-24-2023 09:56-0400 Body weight 109.31 kg [employer] Darwin Easterwood Work Phone: [facility] 12-24-2023 09:56-0400 Diastolic blood pressure 84 mm[Hg] [employer] Darwin Easterwood Work Phone: [facility] 12-24-2023 09:56-0400 Heart rate 102 /min [employer] Darwin Easterwood Work Phone: [facility] 12-24-2023 09:56-0400 Respiratory rate 20 /min [employer] Darwin Easterwood Work Phone: [facility] 12-24-2023 09:56-0400 SaO2% (BldA) [Mass fraction] 98 % [employer] ACC[employer]IESAlayna Joneserjillian Work Phone: [facility] 12-24-2023 09:56-0400 Systolic blood pressure 126 mm[Hg] [employer] Darwin Easterwood Work Phone: [facility] 11-25-2023 09:01-0400 Body height 170.18 cm [employer] Darwin Joneserjillian Work Phone: [facility] 11-25-2023 09:01-0400 Body mass index (BMI) [Ratio] 37.7 kg/m2 [employer]na Joneserjillian Work Phone: [facility] 11-25-2023 09:01-0400 Body temperature 97 [degF] [employer]Al[employer]na Joneserjillian Work Phone: [facility] 11-25-2023 09:01-0400 Body weight 109.31 kg [employer]Al[employer]na Joneserjillian Work Phone: [facility] 11-25-2023 09:01-0400 Diastolic blood pressure 76 mm[Hg] [employer]Al[employer]na Joneserjillian Work Phone: [facility] 11-25-2023 09:01-0400 Heart rate 95 /min [employer] Darwin Joneserjillian Work Phone: [facility] 11-25-2023 09:01-0400 Respiratory rate 20 /min [employer] Darwin Easterjillian Work Phone: [facility] 11-25-2023 09:01-0400 SaO2% (BldA) [Mass fraction] 98 % [employer]Al[employer]na Orosco [employer] Work Phone: [facility] 11-25-2023 09:01-0400 Systolic blood pressure 120 mm[Hg] [employer] Darwin Easterwood Work Phone: [facility] 11-18-2023 08:03-0400 Body weight 110.68 kg Ruby Whittington MD Work Phone: [facility] 11-18-2023 08:03-0400 Diastolic blood pressure 92 mm[Hg] Ruby Whittington MD Work Phone: [facility] 11-18-2023 08:03-0400 Heart rate 100 /min Ruby Whittington MD Work Phone: [facility] 11-18-2023 08:03-0400 Systolic blood pressure 132 mm[Hg] Ruby Whittington MD Work Phone: [facility] 10-20-2023 09:05-0500 Body height 170.18 cm [employer]Alayna Orosco [employer] Work Phone: [facility] 10-20-2023 09:05-0500 Body mass index (BMI) [Ratio] 38.3 kg/m2 [employer] Darwin Easterjillian Work Phone: [facility] 10-20-2023 09:05-0500 Body temperature 98 [degF] [employer] Darwin Easterjillian Work Phone: [facility] 10-20-2023 09:05-0500 Body weight 111.13 kg [employer] Darwin Easterjillian Work Phone: [facility] 10-20-2023 09:05-0500 Diastolic blood pressure 78 mm[Hg] [employer] Darwin Easterwood Work Phone: [facility] 10-20-2023 09:05-0500 Heart rate 82 /min [employer] Darwin Easterwood Work Phone: [facility] 10-20-2023 09:05-0500 Respiratory rate 20 /min [employer] Darwin Easterwood Work Phone: [facility] 10-20-2023 09:05-0500 SaO2% (BldA) [Mass fraction] 98 % [employer] Darwin Easterwood Work Phone: [facility] 10-20-2023 09:05-0500 Systolic blood pressure 124 mm[Hg] SHIRLEY Jones Work Phone: [facility] 09-29-2023 10:41-0500 Blood Pressure Location [facility] 09-29-2023 10:41-0500 Body temperature 98.24 [degF] [facility] 09-29-2023 10:41-0500 Diastolic blood pressure 78 mm[Hg] [facility] 09-29-2023 10:41-0500 Heart rate 95 /min [facility] 09-29-2023 10:41-0500 SaO2% (BldA) [Mass fraction] 97 % [facility] 09-29-2023 10:41-0500 Systolic blood pressure 122 mm[Hg] [facility] 09-21-2023 09:00-0500 Body height 170.18 cm Darwin [employer] Other [employer] Other 09-21-2023 09:00-0500 Body mass index (BMI) [Ratio] 38.37 kg/m2 [employer] Other [employer] Other 09-21-2023 09:00-0500 Body temperature 98 [degF] Darwin [employer] Other [employer] Other 09-21-2023 09:00-0500 Body weight 111.13 kg Darwin Easterwood Other [employer] Other 09-21-2023 09:00-0500 Diastolic blood pressure 84 mm[Hg] Darwin Easterwood Other [employer] Other 09-21-2023 09:00-0500 Respiratory rate 20 /min Darwin Easterwood Other [employer] Other 09-21-2023 09:00-0500 SaO2% (BldA) [Mass fraction] 98 % Darwin Easterwood Other [employer] Other 09-21-2023 09:00-0500 Systolic blood pressure 126 mm[Hg] Darwin Easterwood Other [employer] Other 08-25-2023 09:30-0500 Body height 170.18 cm Darwin Easterwood Other [facility] 08-25-2023 09:30-0500 Body mass index (BMI) [Ratio] 39.46 kg/m2 Darwin Easterwood Other [employer] Other 08-25-2023 09:30-0500 Body temperature 97.6 [degF] Darwin Easterwood Other [employer] Other 08-25-2023 09:30-0500 Body weight 114.31 kg Darwin Easterwood Other [employer] Other 08-25-2023 09:30-0500 Body weight 114.3 kg [employer] Darwin Easterwood Work Phone: [facility] 08-25-2023 09:30-0500 Diastolic blood pressure 80 mm[Hg] Darwin Easterwood Other [facility] 08-25-2023 09:30-0500 Respiratory rate 20 /min Darwin Easterwood Other [employer] Other 08-25-2023 09:30-0500 SaO2% (BldA) [Mass fraction] 98 % Darwin Easterwood Other [employer] Other 08-25-2023 09:30-0500 Systolic blood pressure 120 mm[Hg] Darwin Easterwood Other [facility] 07-23-2023 09:30-0500 Body height 170.18 cm [employer] Darwin Easterwood Work Phone: [facility] 07-23-2023 09:30-0500 Body weight 116.57 kg [employer] Darwin Easterwood Work Phone: [facility] 07-23-2023 09:30-0500 Diastolic blood pressure 80 mm[Hg] [employer] Darwin Easterwood Work Phone: [facility] 07-23-2023 09:30-0500 Systolic blood pressure 118 mm[Hg] [employer] Darwin Easterwood Work Phone: [facility] 06-23-2023 09:30-0500 Body height 170.18 cm Darwin Easterwood Other [employer] Other 06-23-2023 09:30-0500 Body mass index (BMI) [Ratio] 40.4 kg/m2 Darwin Easterwood Other [employer] Other 06-23-2023 09:30-0500 Body temperature 97.4 [degF] Darwin Easterwood Other [employer] Other 06-23-2023 09:30-0500 Body weight 117.03 kg Darwin Easterwood Other [employer] Other 06-23-2023 09:30-0500 Diastolic blood pressure 78 mm[Hg] Darwin Easterwood Other [employer] Other 06-23-2023 09:30-0500 Respiratory rate 20 /min Darwin Easterwood Other [employer] Other 06-23-2023 09:30-0500 SaO2% (BldA) [Mass fraction] 98 % Darwin Easterwood Other [employer] Other 06-23-2023 09:30-0500 Systolic blood pressure 120 mm[Hg] Darwin Easterwood Other [employer] Other 06-08-2023 14:00-0400 Body temperature 97.2 [degF] Francy Gan PA-C Work Phone: [facility] 05-26-2023 10:30-0400 Body height 170.18 cm Darwin Easterwood Other [employer] Other 05-26-2023 10:30-0400 Body mass index (BMI) [Ratio] 41.5 kg/m2 Darwin Easterwood Other [employer] Other 05-26-2023 10:30-0400 Body temperature 98.4 [degF] Darwin Easterwood Other [employer] Other 05-26-2023 10:30-0400 Body weight 120.2 kg Darwin Easterwood Other [employer] Other 05-26-2023 10:30-0400 Diastolic blood pressure 70 mm[Hg] Darwin Easterwood Other [employer] Other 05-26-2023 10:30-0400 Respiratory rate 20 /min Darwin Easterwood Other [employer] Other 05-26-2023 10:30-0400 SaO2% (BldA) [Mass fraction] 97 % Darwin Easterwood Other [employer] Other 05-26-2023 10:30-0400 Systolic blood pressure 112 mm[Hg] Darwin Easterwood Other [employer] Other 04-28-2023 09:15-0400 Body height 170.18 cm Darwin [employer] Other [employer] Other 04-28-2023 09:15-0400 Body mass index (BMI) [Ratio] 41.34 kg/m2 Darwin Easterwood Other [employer] Other 04-28-2023 09:15-0400 Body temperature 97.2 [degF] Darwin Easterwood Other [employer] Other 04-28-2023 09:15-0400 Body weight 119.75 kg Darwin Easterwood Other [employer] Other 04-28-2023 09:15-0400 Diastolic blood pressure 82 mm[Hg] Darwin Easterwood Other [employer] Other 04-28-2023 09:15-0400 Respiratory rate 20 /min Darwin [employer] Other [employer] Other 04-28-2023 09:15-0400 SaO2% (BldA) [Mass fraction] 97 % Darwin Easterwood Other [employer] Other 04-28-2023 09:15-0400 Systolic blood pressure 120 mm[Hg] Darwin Easterwood Other [employer] Other 04-16-2023 11:00-0400 Body height 170.18 cm Darwin Easterwood Other [employer] Other 04-16-2023 11:00-0400 Body mass index (BMI) [Ratio] 41.03 kg/m2 Darwin Easterwood Other [employer] Other 04-16-2023 11:00-0400 Body temperature 97.8 [degF] Darwin Easterwood Other [employer] Other 04-16-2023 11:00-0400 Body weight 118.84 kg Darwin Easterwood Other [employer] Other 04-16-2023 11:00-0400 Diastolic blood pressure 80 mm[Hg] Darwin Easterwood Other [employer] Other 04-16-2023 11:00-0400 Respiratory rate 20 /min Darwin Easterwood Other [employer] Other 04-16-2023 11:00-0400 SaO2% (BldA) [Mass fraction] 98 % Darwin Easterwood Other [employer] Other 04-16-2023 11:00-0400 Systolic blood pressure 120 mm[Hg] Darwin Easterwood Other [facility] [employer] Other 03-22-2023 22:51-0400 Diastolic blood pressure 74 mm[Hg] Kaylinn Dokken [facility] 03-22-2023 22:51-0400 Heart rate 80 /min Kaylinn Dokken [facility] 03-22-2023 22:51-0400 Mean blood pressure 92 mm[Hg] Kaylinn Dokken [facility] 03-22-2023 22:51-0400 Respiratory rate 16 /min Kaylinn Dokken [facility] 03-22-2023 22:51-0400 SaO2% (BldA) [Mass fraction] 98 % Kaylinn Dokken [facility] 03-22-2023 22:51-0400 Systolic blood pressure 128 mm[Hg] Kaylinn Dokken [facility] 03-22-2023 21:24-0400 Heart rate 76 /min Kaylinn Dokken [facility] 03-22-2023 21:24-0400 Respiratory rate 16 /min Kaylinn Dokken [facility] 03-22-2023 21:24-0400 SaO2% (BldA) [Mass fraction] 97 % Kaylinn Dokken [facility] 03-22-2023 19:54-0400 Body temperature 98.06 [degF] Kaylinn Dokken [facility] 03-22-2023 19:54-0400 Diastolic blood pressure 89 mm[Hg] Kaylinn Dokken [facility] 03-22-2023 19:54-0400 Heart rate 81 /min Gabriel Curtis [facility] 03-22-2023 19:54-0400 Respiratory rate 18 /min Gabriel Sellerskken [facility] 03-22-2023 19:54-0400 SaO2% (BldA) [Mass fraction] 99 % Gabriel Curtis [facility] 03-22-2023 19:54-0400 Systolic blood pressure 138 mm[Hg] Gabriel Curtis [facility] 03-22-2023 15:18-0400 Body height 170.18 cm [employer] Darwin Easterwood Work Phone: [facility] 03-22-2023 15:18-0400 Body temperature 98.2 [degF] [employer] Darwin Easterwood Work Phone: [facility] 03-22-2023 15:18-0400 Body weight 120.5 kg [employer] Darwin Easterwood Work Phone: [facility] 03-22-2023 15:18-0400 Diastolic blood pressure 74 mm[Hg] [employer] Darwin Easterwood Work Phone: [facility] 03-22-2023 15:18-0400 Heart rate 92 /min [employer] Darwin Easterwood Work Phone: [facility] 03-22-2023 15:18-0400 Respiratory rate 20 /min [employer] Darwin Easterwood Work Phone: [facility] 03-22-2023 15:18-0400 SaO2% (BldA) [Mass fraction] 97 % [employer] Darwin Easterwood Work Phone: [facility] 03-22-2023 15:18-0400 Systolic blood pressure 175 mm[Hg] SHIRLEY Jones Work Phone: [facility] 10-05-2022 09:00-0500 Body height 170.18 cm Ofelia Missler Other [employer] Other 10-05-2022 09:00-0500 Body mass index (BMI) [Ratio] 37.21 kg/m2 Ofelia Missler Other [employer] Other 10-05-2022 09:00-0500 Body weight 107.78 kg Ofelia Missler Other [employer] Other 10-05-2022 09:00-0500 Diastolic blood pressure 45 mm[Hg] Ofelia Missler Other [employer] Other 10-05-2022 09:00-0500 Respiratory rate 18 /min Ofelia Missler Other [employer] Other 10-05-2022 09:00-0500 SaO2% (BldA) [Mass fraction] 97 % Ofelia Missler Other [employer] Other 10-05-2022 09:00-0500 Systolic blood pressure 100 mm[Hg] Ofelia Missler Other [employer] Other 09-02-2022 11:30-0500 Body height 170.18 cm Ofelia Missler Other [employer] Other 09-02-2022 11:30-0500 Body mass index (BMI) [Ratio] 38.04 kg/m2 Ofelia Missler Other [employer] Other 09-02-2022 11:30-0500 Body weight 110.18 kg Ofelia Missler Other [employer] Other 09-02-2022 11:30-0500 Diastolic blood pressure 79 mm[Hg] Ofelia Missler Other [employer] Other 09-02-2022 11:30-0500 Respiratory rate 18 /min Ofelia Missler Other [employer] Other 09-02-2022 11:30-0500 SaO2% (BldA) [Mass fraction] 96 % Ofelia Missler Other [employer] Other 09-02-2022 11:30-0500 Systolic blood pressure 119 mm[Hg] Ofelia Missler Other [employer] Other 08-25-2022 14:00-0500 Body height 170.18 cm Lilly Fitt Other [employer] Other 08-25-2022 14:00-0500 Body mass index (BMI) [Ratio] 38.01 kg/m2 Lilly Fitt Other [employer] Other 08-25-2022 14:00-0500 Body weight 110.09 kg Lilly Fitt Other [employer] Other 07-31-2022 09:45-0500 Body height 170.18 cm Ofelia Missler Other [employer] Other 07-31-2022 09:45-0500 Body mass index (BMI) [Ratio] 38.2 kg/m2 Ofelia Missler Other [employer] Other 07-31-2022 09:45-0500 Body weight 110.63 kg Ofelia Missler Other [employer] Other 07-31-2022 09:45-0500 Diastolic blood pressure 78 mm[Hg] Ofelia Missler Other [employer] Other 07-31-2022 09:45-0500 Respiratory rate 18 /min Ofelia Missler Other [employer] Other 07-31-2022 09:45-0500 SaO2% (BldA) [Mass fraction] 96 % Ofelia Missler Other [employer] Other 07-31-2022 09:45-0500 Systolic blood pressure 135 mm[Hg] Ofelia Missler Other [employer] Other 07-14-2022 08:49-0500 Body height 170.5 cm Ruby Whittington MD Work Phone: [facility] 07-14-2022 08:49-0500 Body weight 111.58 kg Ruby Whittington MD Work Phone: [facility] 07-14-2022 08:49-0500 Diastolic blood pressure 73 mm[Hg] Ruby Whittington MD Work Phone: [facility] 07-14-2022 08:49-0500 Heart rate 92 /min Ruby Whittington MD Work Phone: [facility] 07-14-2022 08:49-0500 Systolic blood pressure 140 mm[Hg] Ruby Whittington MD Work Phone: [facility] 06-17-2022 15:45-0400 Body height 170.18 cm Ofelia Missler Other [employer] Other 06-17-2022 15:45-0400 Body mass index (BMI) [Ratio] 38.99 kg/m2 Ofelia Missler Other [employer] Other 06-17-2022 15:45-0400 Body weight 112.95 kg Ofelia Missler Other [employer] Other 06-17-2022 15:45-0400 Diastolic blood pressure 90 mm[Hg] Ofelia Missler Other [employer] Other 06-17-2022 15:45-0400 Respiratory rate 18 /min Ofelia Missler Other [employer] Other 06-17-2022 15:45-0400 SaO2% (BldA) [Mass fraction] 96 % Ofelia Missler Other [employer] Other 06-17-2022 15:45-0400 Systolic blood pressure 140 mm[Hg] Ofelia Missler Other [employer] Other 06-04-2022 13:00-0400 Body height 170.18 cm Sima Ross Other [employer] Other 06-04-2022 13:00-0400 Body mass index (BMI) [Ratio] 38.37 kg/m2 Sima Ross Other [employer] Other 06-04-2022 13:00-0400 Body temperature 98.6 [degF] Sima Ross Other [employer] Other 06-04-2022 13:00-0400 Body weight 111.13 kg Sima Ross Other [employer] Other 06-04-2022 13:00-0400 Diastolic blood pressure 83 mm[Hg] Micahlouisa Vandana Other [employer] Other 06-04-2022 13:00-0400 Respiratory rate 18 /min Sima Vandana Other [employer] Other 06-04-2022 13:00-0400 SaO2% (BldA) [Mass fraction] 99 % Sima Ross Other [employer] Other 06-04-2022 13:00-0400 Systolic blood pressure 124 mm[Hg] Sima Vandana Other [employer] Other 05-27-2022 12:15-0400 Body height 170.18 cm Lilly Fitt Other [employer] Other 05-18-2022 09:30-0400 Body height 170.18 cm Ofelia Missler Other [employer] Other 05-18-2022 09:30-0400 Body mass index (BMI) [Ratio] 39.37 kg/m2 Ofelia Missler Other [employer] Other 05-18-2022 09:30-0400 Body temperature 98.1 [degF] Ofelia Missler Other [employer] Other 05-18-2022 09:30-0400 Body weight 114.04 kg Ofelia Missler Other [employer] Other 05-18-2022 09:30-0400 Diastolic blood pressure 80 mm[Hg] Ofelia Missler Other [employer] Other 05-18-2022 09:30-0400 Respiratory rate 18 /min Ofelia Missler Other [employer] Other 05-18-2022 09:30-0400 SaO2% (BldA) [Mass fraction] 99 % Ofelia Missler Other [employer] Other 05-18-2022 09:30-0400 Systolic blood pressure 115 mm[Hg] Ofelia Missler Other [employer] Other 04-17-2022 09:30-0400 Body height 170.18 cm Darwin [employer] Other [employer] Other 04-17-2022 09:30-0400 Body mass index (BMI) [Ratio] 39.15 kg/m2 Darwin [employer] Other [employer] Other 04-17-2022 09:30-0400 Body temperature 96.9 [degF] Darwin [employer] Other [employer] Other 04-17-2022 09:30-0400 Body weight 113.4 kg Darwin [employer] Other [employer] Other 04-17-2022 09:30-0400 Diastolic blood pressure 82 mm[Hg] Darwin [employer] Other [employer] Other 04-17-2022 09:30-0400 Respiratory rate 20 /min Darwin [employer] Other [employer] Other 04-17-2022 09:30-0400 SaO2% (BldA) [Mass fraction] 99 % Darwin [employer] Other [employer] [facility] [employer] Other 04-17-2022 09:30-0400 Systolic blood pressure 124 mm[Hg] Darwin Jones Other [employer] Other 02-18-2022 21:41-0400 Diastolic blood pressure 88 mm[Hg] Fazal Antoni [facility] 02-18-2022 21:41-0400 Heart rate 84 /min Fazal Antoni [facility] 02-18-2022 21:41-0400 Mean blood pressure 101 mm[Hg] Fazal Antoni [facility] 02-18-2022 21:41-0400 Respiratory rate 17 /min Fazal Antoni [facility] 02-18-2022 21:41-0400 SaO2% (BldA) [Mass fraction] 98 % Darwin Jones Other [employer] Other 02-18-2022 21:41-0400 Systolic blood pressure 126 mm[Hg] Fazal Antoni [facility] 02-18-2022 20:42-0400 gluc 106 mg/dL Fazal Antoni [facility] 02-18-2022 20:42-0400 gluc Fazal Antoni [facility] 02-18-2022 20:33-0400 Body temperature 98.06 [degF] Fazal Antoni [facility] 02-18-2022 20:33-0400 Diastolic blood pressure 99 mm[Hg] Fazal Antoni [facility] 02-18-2022 20:33-0400 Heart rate 99 /min Fazal Antoni [facility] 02-18-2022 20:33-0400 Respiratory rate 18 /min Fazal Antoni [facility] 02-18-2022 20:33-0400 Systolic blood pressure 153 mm[Hg] Fazal Natoni [facility] 02-18-2022 10:00-0400 Body height 170.18 cm Darwin [employer] Other [facility] [employer] Other 02-18-2022 10:00-0400 Body mass index (BMI) [Ratio] 38.52 kg/m2 Darwin Easterwood Other [employer] Other 02-18-2022 10:00-0400 Body temperature 97 [degF] Darwin Easterwood Other [employer] Other 02-18-2022 10:00-0400 Body weight 111.59 kg Darwin Easterwood Other [employer] Other 02-18-2022 10:00-0400 Diastolic blood pressure 82 mm[Hg] Darwin Easterwood Other [employer] Other 02-18-2022 10:00-0400 Respiratory rate 20 /min Darwin Easterwood Other [employer] Other 02-18-2022 10:00-0400 Systolic blood pressure 118 mm[Hg] Darwin Easterwood Other [employer] Other 02-11-2022 12:00-0400 Body height 170.18 cm Darwin [employer] Other [employer] Other 02-11-2022 12:00-0400 Body mass index (BMI) [Ratio] 37.9 kg/m2 Darwin Joneserjillian Other [employer] Other 02-11-2022 12:00-0400 Body temperature 97.2 [degF] Darwin Roberterwood Other [employer] Other 02-11-2022 12:00-0400 Body weight 109.77 kg Darwin Jones Other [employer] Other 02-11-2022 12:00-0400 Diastolic blood pressure 88 mm[Hg] Darwin Roberterjillina Other [employer] Other 02-11-2022 12:00-0400 Respiratory rate 20 /min Darwin Joneserjillian Other [employer] Other 02-11-2022 12:00-0400 SaO2% (BldA) [Mass fraction] 98 % Darwin Jones Other [employer] Other 02-11-2022 12:00-0400 Systolic blood pressure 126 mm[Hg] Darwin Roberterwood Other [employer] Other 09-03-2021 10:02-0500 Diastolic blood pressure 86 mm[Hg] Unknown Unknown [employer] 600 DO Work Phone: 09-03-2021 10:02-0500 Systolic blood pressure 110 mm[Hg] Unknown Unknown [employer] 600 DO Work Phone: 09-03-2021 09:55-0500 Body height 170.18 cm Unknown Unknown [employer] 600 DO Work Phone: 09-03-2021 09:55-0500 Body mass index (BMI) [Ratio] 32.36 kg/m2 Unknown Unknown [facility] 600 DO Work Phone: 09-03-2021 09:55-0500 Body surface area Derived from formula 2.05 m2 Unknown Unknown [facility] 600 DO Work Phone: 09-03-2021 09:55-0500 Body weight 93.71 kg Unknown Unknown [facility] 600 DO Work Phone: 09-03-2021 09:55-0500 Diastolic blood pressure 84 mm[Hg] Unknown Unknown [facility] 600 DO Work Phone: 09-03-2021 09:55-0500 Heart rate 72 /min Unknown Unknown [facility] 600 DO Work Phone: 09-03-2021 09:55-0500 Systolic blood pressure 122 mm[Hg] Unknown Unknown [facility] 600 DO Work Phone: Encounters Encounter Date Encounter Type Care Provider Facility Start: 09-22-2024 End: 09-22-2024 Clinisync Result Encounter Brain Seamus DO Work Phone: [facility] Unsolicited Start: 09-22-2024 End: 09-22-2024 Clinisync Result Encounter Brain Seamus DO Work Phone: [facility] Unsolicited Start: 09-21-2024 End: 09-21-2024 Patient encounter procedure Darwin Jones [employer] Work Phone: [facility] Work Phone: Start: 09-21-2024 End: 09-21-2024 ambulatory Darwin Jones [employer] Work Phone: [facility] Work Phone: Start: 09-19-2024 End: 09-19-2024 Bamboo flowsheet Brain Seamus DO Work Phone: [facility] Start: 09-19-2024 End: 09-19-2024 Bamboo flowsheet Brain Seamus DO Work Phone: [facility] Start: 09-19-2024 End: 09-19-2024 flow sheet Brain Seamus DO Work Phone: [facility] Comment on above: 32 weeks gestation o f ; Third trimester ; Abnormal TSH Start: 09-19-2024 End: 09-19-2024 ambulatory BRAIN SEAMUS Not Available Start: 09-15-2024 End: 09-15-2024 Clinisync Result Encounter Brain Seamus DO Work Phone: [facility] Unsolicited Start: 09-15-2024 End: 09-15-2024 Clinisync Result Encounter Brain Seamus DO Work Phone: [facility] External [facility] Unsolicited Start: 09-14-2024 End: 09-14-2024 Patient encounter procedure Darwin Jones [employer] Work Phone: [facility] Work Phone: Start: 09-14-2024 End: 09-14-2024 ambulatory Darwin Jones [employer] Work Phone: [facility] Work Phone: Start: 09-11-2024 End: 09-11-2024 [...] Start: 09-07-2024 Non-patient / Non-visit Darwin corral [employer] Work Phone: [facility] Work Phone: Start: 09-06-2024 End: 09-06-2024 Emergency department patient visit Flash Franco [facility] Start: 09-05-2024 ambulatory Rogelio Shimon [facility] Facility :[facility] Start: 09-05-2024 End: 09-05-2024 ambulatory [facility] Shimon [facility] Facility:[facility] Start: 09-05-2024 Emergency department patient visit DO Gabriel Curtis Facility:[facility] Start: 09-05-2024 End: 09-05-2024 Observation [facility] Shimon [facility] Start: 08-25-2024 End: 08-25-2024 Clinisync Result Encounter Brain Seamus DO Work Phone: [facility] External [facility] Unsolicited Start: 08-25-2024 End: 08-25-2024 Clinisync Result Encounter Brain Seamus DO Work Phone: [facility] Unsolicited Start: 08-25-2024 End: 08-25-2024 ambulatory Darwin Jones [employer] Work Phone: [facility] Work Phone: Start: 08-25-2024 End: 08-25-2024 Patient encounter procedure Darwin Jones [employer] Work Phone[facility] Work Phone: Start: 08-23-2024 End: 08-23-2024 [...] Not Available Start: 08-02-2024 End: 08-02-2024 ambulatory [facility] Start: 07-31-2024 End: 07-31-2024 [facility] [employer] [employer] Work Phone: [facility] Work Phone: Start: 07-31-2024 End: 07-31-2024 Orders Only Hayden Reilly MD Work Phone: [facility] Comment on above: History of pericardi tis (Primary Dx); Mild concentric left ventricular hypertrophy (LVH); 25 weeks gestation of Start: 07-27-2024 End: 07-27-2024 ambulatory NO PCP NO PCP [facility] Start: 07-11-2024 End: 07-11-2024 flow sheet Brain Seamus DO Work Phone: [facility] Comment on above: 22 weeks gestation o f ; Second trimester ; Nausea and vomiting during ; Diabetes mellitus screening Start: 06-28-2024 End: 06-28-2024 Patient encounter procedure Darwin Joneserwood [employer] Work Phone: [facility] Work Phone: Start: 06-28-2024 End: 06-28-2024 ambulatory Darwin Jones [employer] Work Phone: [facility] Work Phone: Start: 2024 End: 2024 Office consultation new/estab patient 60 min Hayden Reilly MD Work Phone: [facility] Comment on above: 20 weeks gestation o f (Primary Dx); Tiffani's disease; 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; Hx of preeclampsia, prior , currently ; Elevated BP without diagnosis of hypertension; History of pericarditis; with history of section, antepartum; History of macrosomia in in prior , currently ; Obesity affecting , antepartum, unspecified obesity type; Depression affecting Start: 2024 End: 2024 ambulatory [facility] Start: 06-22-2024 End: 06-22-2024 Patient encounter procedure Darwin Jones [employer] Work Phone: [facility] [place] Work Phone: Start: 06-22-2024 End: 06-22-2024 ambulatory Darwin Jones [employer] Work Phone: [facility] Work Phone: Start: 06-21-2024 End: 06-21-2024 Chart abstracting Hayden Reilly MD Work Phone: [facility] Start: 06-12-2024 End: 06-12-2024 Bamboo flowsheet [...] Patient encounter procedure SHIRLEY Jones Work Phone: [facility] [place] Work Phone: Start: 05-24-2024 End: 05-24-2024 ambulatory SHIRLEY Anaya [facility] Work Phone: [facility] Work Phone: Start: 05-11-2024 End: 05-11-2024 ambulatory SHIRLEY Anaya [facility] Work Phone: [facility] Work Phone: Start: 05-11-2024 End: 05-11-2024 Encounter for general adult medical examination without abnormal findings SHIRLEY Larasullivan Work Phone: [facility] Start: 05-11-2024 End: 05-11-2024 Patient encounter procedure SHIRLEY Jones Work Phone: [facility] [place] Work Phone: Start: 05-10-2024 End: 05-10-2024 Bamboo [...] 04-06-2024 Departed Referred SHIRLEY Jones Work Phone: [facility] Start: 04-06-2024 End: 04-06-2024 ambulatory [employer] Darwin Anaya Easterwood Work Phone: [facility] Work Phone: Start: 03-21-2024 End: 03-21-[address] Not Available Start: 03-18-2024 End: 03-18-2024 Emergency department patient visit [place] [facility] Start: 02-24-2024 End: 02-24-2024 Patient encounter procedure [employer] Darwin Roberterwood Work Phone: [facility] [place] Work Phone: Start: 02-24-2024 End: 02-24-2024 ambulatory [employer] Darwin Anaya Easterwood Work Phone: [facility] Work Phone: Start: 01-25-2024 End: 01-25-2024 ambulatory [employer] Darwin Anaya Roberterwood Work Phone: [facility] Work Phone: Start: 01-25-2024 End: 01-25-2024 Patient encounter procedure [employer] Darwin Roberterwood Work Phone: [facility] Work Phone: Start: 01-24-2024 End: 01-24-2024 Patient encounter procedure [employer] Darwin Joneserwood Work Phone: [facility] [place] Work Phone: Start: 01-24-2024 End: 01-24-2024 ambulatory [employer] Darwin Jaclyn Easterwood Work Phone: [facility] Work Phone: Start: 12-27-2023 End: 12-27-2023 Patient encounter procedure [employer] Darwin Easterwood Work Phone: [facility] [place] Work Phone: Start: 12-27-2023 End: 12-27-2023 ambulatory [employer] Darwin Joneserwood Work Phone: [facility] Work Phone: Start: 12-24-2023 End: 12-24-2023 ambulatory [employer] Darwin Joneserwood Work Phone: [facility] Work Phone: Start: 12-24-2023 End: 12-24-2023 Patient encounter procedure SALESPERSON FASHION ACCESSORIESAlayna Jones Work Phone: [facility] Work Phone: Start: 11-30-2023 End: 11-30-2023 Patient encounter procedure SALESPERSON FASHION ACCESSORIESAlayna Joneserwood Work Phone: [facility] [place] Work Phone: Start: 11-30-2023 End: 11-30-2023 ambulatory [employer] Darwin Joneserwood Work Phone: [facility] Work Phone: Start: 11-25-2023 End: 11-25-2023 ambulatory [employer] Darwin Joneserwood Work Phone: [facility] Work Phone: Start: 11-25-2023 End: 11-25-2023 Patient encounter procedure [employer] Darwin Joneserwood Work Phone: [facility] Physician 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 Work Phone: Start: 10-01-2023 End: 10-01-2023 Patient encounter procedure SHIRLEY Orosco Yasir Work Phone: [facility] [place] Work Phone: Start: 10-01-2023 End: 10-01-2023 ambulatory SHIRLEY Anaya Yasir Work Phone: [facility] Work Phone: Start: 09-29-2023 End: 09-29-2023 ambulatory [place] Facility:[facility] Start: 09-29-2023 End: 09-29-2023 Patient encounter procedure [place] [facility] Start: 09-21-2023 End: 09-21-2023 ambulatory Darwin Jones Other [employer] Other Start: 09-21-2023 Office outpatient vi sit 15 minutes Darwin Jones [facility] Start: 08-30-2023 Patient encounter procedure [employer] Darwin Jones Work Phone: [facility]- Start: 08-25-2023 End: 08-25-2023 ambulatory Darwin Jones Other [employer] Other Start: 08-25-2023 Follow-up encounter Darwin Jones [facility] Start: 08-25-2023 End: 08-25-2023 Patient encounter procedure [employer] Darwin Jones Work Phone: [facility] Work Phone: Start: 07-23-2023 End: 07-23-2023 Patient encounter procedure SALESPERSON FASHION ACCESSORIESAlayna Jones Work Phone: [facility] Work Phone: Start: 07-16-2023 Telephone encounter Ruby sneed MD Work Phone: Endocrinology Comment on above: Appointment Start: 06-23-2023 End: 06-23-2023 ambulatory Darwin Jones Other [employer] Other Start: 06-23-2023 Office outpatient vi sit [facility] Start: 06-08-2023 End: 06-08-2023 ambulatory FRANCY GAN Facility:[facility] Start: 06-08-2023 End: 06-08-2023 Patient encounter procedure Francy Gan PA-C Work Phone: Otolaryngology Comment on above: Dysphagia, unspecifi ed type (Primary Dx); LPRD (laryngopharyngeal reflux disease) Start: 05-26-2023 End: 05-26-2023 ambulatory Darwin Jones Other [employer] Other Start: 05-26-2023 Office outpatient vi sit 25 minutes [facility] Start: 05-06-2023 End: 05-06-2023 ambulatory [employer] Darwin Jones Work Phone: [facility] Work Phone: Start: 05-06-2023 End: 05-06-2023 Patient encounter procedure SHIRLEY Jones Work Phone: [facility] [place] Work Phone: Start: 04-28-2023 End: 04-28-2023 ambulatory Darwin Jones Other [employer] Other Start: 04-28-2023 Office outpatient vi sit 40 minutes Darwin [facility] Start: 04-16-2023 End: 04-16-2023 ambulatory Darwin [facility] Other [employer] Other Start: 04-16-2023 Encounter for genera l adult medical examination without abnormal [facility] Start: 04-16-2023 Periodic preventive med est patient 18-39 yrs Darwin [facility] Start: 04-08-2023 End: 04-08-2023 ambulatory [employer] Darwin Jones Work Phone: [facility] Work Phone: Start: 04-08-2023 End: 04-08-2023 Departed Referred SHIRLEY Jones Work Phone: [facility]-Employee Benefit Screening Start: 03-22-2023 End: 03-22-2023 Emergency department patient visit Gabriel Curtis [facility] Start: 03-22-2023 End: 03-22-2023 Emergency department patient visit SHIRLEY Jones Work Phone: [facility]-Emergency Room Work Phone: Start: 02-28-2023 End: 02-28-2023 Departed Referred SHIRLEY Jones Work Phone: [facility] Benefit Scre[facility] Start: 02-28-2023 End: 02-28-2023 ambulatory SHIRLEY Jones Work Phone: [facility] Work Phone: Start: 02-28-2023 End: 02-28-2023 Patient encounter procedure SHIRLEY Jones Work Phone: [facility] [address] Work Phone: Start: 12-10-2022 End: 12-10-2022 ambulatory SHIRLEY Jones Work Phone: [facility] Work Phone: Start: 12-10-2022 End: 12-10-2022 Patient encounter procedure SHIRLEY Jones Work Phone: [facility] [place] Work Phone: Start: 12-09-2022 End: 12-09-[address] NONE LISTED REQUEST Facility: Start: 12-08-2022 End: 12-08-2022 ambulatory Ofelia Hester Other [employer] Other Start: 12-08-2022 [facility] Start: 10-22-2022 End: 10-22-2022 ambulatory Lilly Luke Other [employer] Other Start: 10-22-2022 Telephone encounter Lilly Luke [facility] Start: 10-16-2022 End: 10-16-2022 ambulatory SHIRLEY Darwin Jones Work Phone: [facility] Work Phone: Start: 10-16-2022 End: 10-16-2022 Patient encounter procedure SHIRLEY Jones Work Phone: [facility] [place] Work Phone: Start: 10-15-2022 End: 10-15-2022 ambulatory Ofelia Hester Other [employer] Other Start: 10-15-2022 Telephone encounter [facility] Start: 10-05-2022 Registered Recurring SHIRLEY Jones Work Phone: [facility] Work Phone: Start: 10-05-2022 [facility] Weight Management f/u [facility] Start: 10-05-2022 End: 10-05-2022 ambulatory Ofeliaher Couchler Other [employer] Other Start: 09-28-2022 ambulatory Ruby Whittington MD Work Phone: Endocrinology Comment on above: Synthroid Start: 09-02-2022 [facility] Weight Management f/u [facility] Start: 09-02-2022 End: 09-02-2022 ambulatory Ofeliaher Couchler Other [employer] Other Start: 08-25-2022 ([facility] WMNI) WMN Init ial Provider Lilly Luke [facility] Start: 08-25-2022 End: 08-25-2022 ambulatory Lilly Luke Other [employer] Other Start: 07-31-2022 [facility] Weight Management f/u [facility] Start: 07-31-2022 End: 07-31-2022 ambulatory Ofelia Missler Other [employer] Other Start: 07-20-2022 End: 07-20-2022 ambulatory Lilly Luke Other [employer] Other Start: 07-20-2022 Telephone encounter 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); Class 2 obesity Start: 07-08-2022 End: 07-08-2022 ambulatory Ofelia Hester Other [employer] Other Start: 07-08-2022 Telephone encounter [facility] Start: 06-17-2022 ([facility]/U) Weight Management f/u [facility] Start: 06-17-2022 End: 06-17-2022 ambulatory Ofelia Hester Other [employer] Other Start: 06-04-2022 End: 06-04-2022 ambulatory Sima Ross Other [employer] Other Start: 06-04-2022 Office outpatient vi sit 15 minutes Sima Ross [facility] Start: 05-27-2022 End: 05-27-2022 ambulatory Lilly Luke Other [employer] Other Start: 05-27-2022 IBT FOR OBESITY GROU P 2-10 30M Lilly Luke [facility] Start: 05-25-2022 End: 05-25-2022 ambulatory Darwin Jones Other [employer] Other Start: 05-25-2022 Telephone encounter Geoffrey murphy MD Work Phone: Endocrinology Comment on above: Appointment (LVM for patient that appt on 05/[address] George has been rescheduled to 07/08 at [facility] with Dr. Robertson. sending mail reminder as well. ) Start: 05-19-2022 End: 05-19-2022 ambulatory Ofelia Hester Other [employer] Other Start: 05-19-2022 Telephone encounter Ofelia Purvis [facility] Start: 05-18-2022 End: 05-18-2022 ambulatory Ofelia Hester Other [employer] Other Start: 05-18-2022 Nutrition therapy Ofelia Hester [facility] Start: 04-21-2022 End: 04-21-2022 ambulatory Darwin Easterwood Other [employer] Other Start: 04-21-2022 Telephone encounter Darwin Easterwood [facility] Start: 04-17-2022 End: 04-17-2022 ambulatory Darwin Easterwood Other [employer] Other Start: 04-17-2022 Office outpatient vi sit 25 minutes Darwin Easterwood [facility] Start: 04-15-2022 End: 04-15-2022 ambulatory Darwin Easterwood Other [employer] Other Start: 04-15-2022 Telephone encounter Darwin Easterwood [facility] Start: 04-14-2022 End: 04-14-2022 Patient encounter procedure PHYSICIAN [facility] Start: 04-10-2022 End: 04-10-2022 ambulatory Lilly Luke Other [employer] Other Start: 04-10-2022 Telephone encounter Lilly Luke [facility] Start: 04-06-2022 End: 04-06-2022 Patient encounter procedure PHYSICIAN [facility] [place] Start: 02-24-2022 End: 02-24-2022 ambulatory Darwin Yasir Other [employer] Other Start: 02-24-2022 [facility] Start: 02-18-2022 End: 02-18-2022 Emergency department patient visit Fazal Corrales [facility] Start: 02-18-2022 End: 02-18-2022 ambulatory Darwin Janewood Other [employer] Other Start: 02-18-2022 Office outpatient vi sit 25 minutes Darwin [facility] Start: 02-18-2022 [facility] Start: 02-13-2022 End: 02-13-2022 Patient encounter procedure PHYSICIAN [facility] [place] Start: 02-11-2022 End: 02-11-2022 ambulatory Darwin Jones Other [employer] Other Start: 02-11-2022 Office outpatient ne w 45 minutes Darwin [facility] Start: 02-10-2022 End: 02-10-2022 Departed Referred PHYSICIAN [facility]-Employee Benefit Screening Start: 09-04-2021 Chart Update Unknown Unknown [facility] [facility] DO Work Phone: Start: 09-03-2021 Office outpatient ne w 45 minutes [facility] Work Phone: Procedures Date Procedure Procedure Detail Performing Clinician Start: 09-22-2024 US OB BPP W NON-STRESS Brain Seamus DO Work Phone: Start: 09-19-2024 Urnls dip stick/tabl et rgnt non-auto w/o micrscp Brain Seamus DO Work Phone: Start: 09-15-2024 US OB BPP W NON-STRESS [...] ultrasoun d of gravid uterus Darwin Jones APRN Work Phone: Start: 06-21-2024 H/O: section History [...] neoplasm of cervix Pap Smear [facility] Start: 03-23-2026 DTaP,Tdap and Td Vaccines (7 - Td or Tdap) DTaP,Tdap and Td Vaccines (7 - Td or Tdap) [facility] Start: 03-23-2026 Urine microalbumin profile [facility] Start: 2025 Tobacco Screening Tobacco Screening [facility] Start: 10-05-2024 End: 10-05-2024 Patient encounter procedure 10/05/2024 2:20 PM EST Routine [facility] [address] [place] [address] Mya Finch PA [address] [place] [address] [facility] Start: 09-19-2024 End: 09-19-2024 Patient encounter procedure [...] (Approximate), Expi res: 07/31/2025 Start: 08-25-2024 [facility] Start: 08-23-2024 End: 08-23-2024 Patient encounter procedure 08/23/2024 11:00 AM EST Routine [facility] [address] [facility] [place] [address] [facility] [facility] [address] [place] [place] [address] Arrived [facility] Comment on above: Arrived Start: 08-02-2024 End: 08-02-2024 Telemedicine consultation with patient 08/02/2024 9:00 AM EST Telemedicine [facility] [place] [address] [place] [address] Darcy Enriquez MD [address] [place] [address] [facility] [place] Start: 07-27-2024 End: 07-27-2024 Patient encounter procedure 07/27/2024 11:00 AM EST Appointment [facility] [place] [address] [place] [phone] [facility] Start: 07-21-2024 End: 07-21-2024 Patient encounter procedure 07/21/2024 10:00 AM EST Appointment [facility] [address] [place] [id number] [facility] Start: 07-11-2024 End: 07-11-2025 CBC panel - Blood by Automated count CBC Lab Routine 22 weeks gestation of Second trimester Expected: 07/11/2024 (Approximate), Expires: 07/11/2025 [facility] Work Phone: Comment on above: Expected: 07/11/2024 (Approximate), Expi res: 07/11/2025 Start: 07-11-2024 End: 07-11-2025 Measurement of glucose 1 hour after glucose challenge for glucose tolerance test Glucose tolerance, 1 hour Lab Routine 22 weeks gestation of Second trimester Diabetes mellitus screening Expected: 07/11/2024 (Approximate), Expires: 07/11/2025 [facility] Comment on above: Expected: 07/11/2024 (Approximate), Expi res: 07/11/2025 Start: 07-11-2024 End: 07-11-2024 Patient encounter procedure 07/11/2024 10:10 AM EST Routine [facility] [address] [place] [phone] DO [address] [facility] [address] [place] [address] [facility] Start: 06-28-2024 [facility] Start: 2024 End: 2025 Echo complete W/O contrast Echo complete W/O contrast Echocardiography Routine 20 weeks gestation of History of pericarditis Expected: 2024, Expires: 2025 [facility] Work Phone: Comment on above: Expected: 2024, Expires: Start: 2024 End: 2024 Patient encounter procedure [facility] [place] Start: 06-12-2024 End: 10-13-2024 Alpha fetoprotein, maternal Alpha fetoprotein, maternal Lab Routine Second trimester 18 weeks gestation of Expected: 06/12/2024 (Approximate), Expires: 10/13/2024 [facility] Comment on above: Expected: 06/12/2024 (Approximate), [...] AM EDT Routine [facility] [address] [place] [phone] [address], DO [address] [place] [address] Arrived [facility] Comment on above: Arrived Start: 06-07-2024 End: 06-07-2024 Patient encounter procedure 06/07/2024 10:50 AM EDT Routine [facility] [address] [place] [address] [address], DO [address] [place] [address] [facility] Start: 05-10-2024 End: 05-10-2024 Patient encounter procedure [facility] Comment on above: Arrived Start: 04-20-2024 End: 04-20-2024 Patient encounter procedure [facility] Comment on above: Arrived Start: 04-16-2024 COVID-19 Vaccine ( season) COVID-19 Vaccine ( season) [facility] Start: 04-16-[address] [facility] Start: 04-07-2024 End: 04-07-2025 ABO/Rh ABO/Rh Lab Routine Missed menses Expected: 04/07/2024 (Approximate), Expires: 04/07/2025 [facility] Comment on above: Expected: 04/07/2024 (Approximate), Expi res: 04/07/2025 Start: 04-07-2024 End: 04-07-2025 Blood type and Indirect antibody screen panel - Blood Type and screen Lab Routine Missed menses Expected: 04/07/2024 (Approximate), Expires: 04/07/2025 [facility] Work Phone: Comment on above: Expected: 04/07/2024 (Approximate), Expi res: 04/07/2025 Start: 08-16-2023 Behavioral Health Screening Behavioral Health Screening [facility] Start: 05-06-2023 US scan of thyroid US thyroid [facility] Start: 04-16-2023 Covid-19 Vaccine ( season) Covid-19 Vaccine ( season) [facility] Start: 04-16-2023 Influenza vaccination [facility] Start: 04-08-2023 [facility] Start: 08-16-2022 DEPRESSION ASSESSMENT DEPRESSION ASSESSMENT [facility] Start: 04-16-2022 Influenza vaccination INFLUENZA (#1) [facility] Start: 08-16-2021 DEPRESSION ASSESSMENT DEPRESSION ASSESSMENT [facility] Start: 01-10-2021 COVID-19 VACCINE (3 - Booster) COVID-19 VACCINE (3 - Booster) [facility] Start: 2017 PAP TESTING PAP TESTING [facility] Start: 2017 Screening for malignant neoplasm of cervix [facility] Start: 2015 DTaP,Tdap and Td Vaccines (1 - Tdap) DTaP,Tdap and Td Vaccines (1 - Tdap) [facility] Start: 2015 Urine microalbumin profile DTAP,TDAP,TD (1 - Tdap) [facility] Start: 2014 Adult BMI Screening Adult BMI Screening [facility] Start: 2014 ANNUAL PCP TEAM CHRONIC DISEASE VISIT ANNUAL PCP TEAM CHRONIC DISEASE VISIT [facility] Start: 2014 HEPATITIS C SCREENING HEPATITIS C SCREENING [facility] Start: 2014 Hepatitis C screening Hepatitis C Screening [facility] Start: 2014 HIV SCREENING HIV SCREENING [facility] Start: 2014 HIV screening HIV Screening [facility] Start: 2010 PEDS TO ADULT TRANSITION ANNUAL ASSESSMENT PEDS TO ADULT TRANSITION ANNUAL ASSESSMENT [facility] Start: 2008 Depression Screening Depression Screening [facility] Start: 2008 PEDS TO ADULT TRANSITION INITIAL DISCUSSION PEDS TO ADULT TRANSITION INITIAL DISCUSSION [facility] Start: 2008 Tobacco Screening Tobacco Screening [facility] Start: 2007 HPV VACCINE (1 - 2-dose series) HPV VACCINE (1 - 2-dose series) [facility] Start: 2005 HPV Vaccine (1 - 2-dose series) HPV Vaccine (1 - 2-dose series) [facility] Start: 1996 COVID-19 VACCINE (#1) COVID-19 VACCINE (#1) [facility] Start: 1996 HEPATITIS B (1 of 3 - 3-dose series) HEPATITIS B (1 of 3 - 3-dose series) [facility] Bacteria identified in Urine by Culture Urine culture Microbiology Routine Missed menses Ordered: 04/07/2024 [facility] Comment on above: Ordered: 04/07/2024 CBC W Auto Differential panel - Blood CBC and differential Lab Routine Missed menses Ordered: 04/07/2024 [facility] Comment on above: Ordered: 04/07/2024 CHLAMYDIA TRACHOMATI S (GENITO/STI) CHLAMYDIA TRACHOMATIS (GENITO/STI) Lab Routine First trimester Screen for STD (sexually transmitted disease) Vaginal discharge Ordered: 04/20/2024 [facility] Comment on above: Ordered: 04/20/2024 Cytology Cervical or vaginal smear or scraping study Pap Smear Pathology and Cytology Routine Well woman exam with routine gynecological exam Ordered: 04/20/2024 [facility] Work Phone: Comment on above: Ordered: 04/20/2024 Hemoglobin A1c/Hemoglobin.total in Blood Hemoglobin A1c Lab Routine Missed menses Ordered: 04/07/2024 [facility] Comment on above: Ordered: 04/07/2024 Hepatitis B virus surface Ag [Presence] in Serum or Plasma by Immunoassay Hepatitis B surface antigen Lab Routine Missed menses Ordered: 04/07/2024 [facility] Comment on above: Ordered: 04/07/2024 Hepatitis C virus Ab [Presence] in Serum or Plasma by Immunoassay Hepatitis C antibody Lab Routine Missed menses Ordered: 04/07/2024 [facility] Comment on above: Ordered: 04/07/2024 HIV-1/HIV-2 antigen/antibody combination immunoassay HIV-1 and HIV-2 antibodies Lab Routine Missed menses Ordered: 04/07/2024 [facility] Comment on above: Ordered: 04/07/2024 Neisseria gonorrhoea e DNA [Presence] in Unspecified specimen by LAUREN with probe detection Neisseria gonorrhea DNA probe, direct Lab Routine First trimester Screen for STD (sexually transmitted disease) Vaginal discharge Ordered: 04/20/2024 [facility] Comment on above: Ordered: 04/20/2024 Patient referral [facility] Work Phone: Progesterone [Mass/volume] in Serum or Plasma [facility] Progesterone [Mass/volume] in Serum or Plasma [facility] Progesterone [Mass/volume] in Serum or Plasma [facility] Progesterone [Mass/volume] in Serum or Plasma [facility] Progesterone [Mass/volume] in Serum or Plasma [facility] Reagin Ab [Presence] in Serum by RPR RPR Lab Routine Missed menses Ordered: 04/07/2024 [facility] Comment on above: Ordered: 04/07/2024 Rubella antibody, IgG Rubella an tibody, IgG Lab Routine Missed menses Ordered: 04/07/2024 [facility] Comment on above: Ordered: 04/07/2024 SURESWAB(R) ADVANCED VAGINITIS PLUS, TMA SURESWAB(R) ADVANCED VAGINITIS PLUS, TMA Pathology and Cytology Routine First trimester Screen for STD (sexually transmitted disease) Vaginal discharge Ordered: 04/20/2024 [facility] Comment on above: Ordered: 04/20/2024 Thyrotropin [Units/volume] in Serum or Plasma TSH Lab Routine Missed menses Ordered: 04/07/2024 [facility] Comment on above: Ordered: 04/07/2024 Heart Transthoracic [facility] End: 07-07-2024 XR MODIFIED BARIUM SWALLOW W SPEECH THERAPY XR MODIFIED BARIUM SWALLOW W SPEECH THERAPY Radiology Routine Dysphagia, unspecified type 1 Occurrences starting 06/08/2023 until 07/07/2024 [facility] Work Phone: Comment on above: 1 Occurrences starting 06/08/2023 until 07/07/2024 [facility] Work Phone: [facility] Immunizations Immunization Date Immunization Notes Care Provider Vaishali yo 05-21-2023 influenza virus vaccine, unspecified formulation [place] [facility] 05-21-2023 influenza, injectabl e, 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, 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 free [employer] Darwin Easterwood Work Phone: [facility] 05-21-2023 influenza, injectabl e, 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, contains 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 Darwin Easterwood Other [employer] Other 06-15-2022 influenza, injectabl e, 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, 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 free [employer] Darwin Easterwood Work Phone: [facility] 06-15-2022 influenza, injectabl e, 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, contains 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 Darwin Easterwood Other [facility] Work Phone: 06-15-2022 influenza virus vaccine, unspecified formulation Francy Gan PA-C Work Phone: [facility] 06-15-2021 influenza nasal, unspecified formulation Ruby Whittington MD Work Phone: [facility] Work Phone: 06-15-2021 influenza virus vaccine, unspecified formulation [place] [facility] 06-15-2021 influenza, injectabl e, 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, 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 free [employer] Darwin Jonesjillian Work Phone: [facility] 06-15-2021 influenza, injectabl e, 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, contains 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 Darwin Easterwood Other [facility] Work Phone: 05-15-2021 influenza nasal, unspecified formulation Ruby Whittington MD Work Phone: [facility] Work Phone: 05-15-2021 influenza virus vaccine, unspecified formulation [place] [facility] 05-15-2021 influenza, high dose seasonal, 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-free Unknown Unknown [facility] Work Phone: 11-15-2020 Pfizer-BioNTech COVID-19 Vacc 30 MCG/0.3ML Intramuscular Suspension Unknown Unknown [facility] 11-12-2020 COVID-19 vaccine, unknown product (NON-US) Ruby Whittington MD Work Phone: [facility] Work Phone: 10-24-2020 Pfizer-BioNTech COVID-19 Vacc 30 MCG/0.3ML Intramuscular Suspension Unknown Unknown [facility] 03-23-2016 tetanus toxoid, reduced diphtheria toxoid, and acellular pertussis vaccine, adsorbed Unknown Unknown [facility] Work Phone: 03-23-2016 varicella virus vaccine Unknown Unknown [facility] Work Phone: 03-01-2002 diphtheria, tetanus toxoids and acellular pertussis vaccine, unspecified formulation Unknown Unknown [facility] Work Phone: 03-01-2002 DTaP, unspecified formulation [place] [facility] 03-01-2002 measles, mumps and rubella virus vaccine Unknown Unknown [facility] Work Phone: 03-01-2002 poliovirus vaccine, inactivated Unknown Unknown [facility] Work Phone: 03-01-2002 poliovirus vaccine, unspecified formulation [place] [facility] 04-20-2001 hepatitis B vaccine, pediatric or pediatric/adolescent dosage Unknown Unknown [facility] Work Phone: 01-03-1998 diphtheria, tetanus toxoids and acellular pertussis vaccine, unspecified formulation Unknown Unknown [facility] Work Phone: 01-03-1998 DTaP, unspecified formulation [place] [facility] 09-18-1997 measles, mumps and rubella virus vaccine Unknown Unknown [facility] Work Phone: 09-18-1997 varicella virus vaccine Unknown Unknown [facility] Work Phone: 03-30-1997 hepatitis B vaccine, pediatric or pediatric/adolescent dosage Unknown Unknown [facility] Work Phone: 1996 diphtheria, tetanus toxoids and acellular pertussis vaccine, unspecified formulation Unknown Unknown [facility] Work Phone: 1996 DTaP, unspecified formulation [place] [facility] 1996 trivalent poliovirus vaccine, live, oral Unknown Unknown [facility] Work Phone: 1996 diphtheria, tetanus toxoids and acellular pertussis vaccine, unspecified formulation Unknown Unknown [facility] Work Phone: 1996 DTaP, unspecified formulation Tyrone Polancopsey [facility] 1996 haemophilus influenz ae type b vaccine, conjugate unspecified formulation Unknown Unknown [facility] Work Phone: 1996 Hib, unspecified formulation Tyrone Pranav [facility] 1996 trivalent poliovirus vaccine, live, oral Unknown Unknown [facility] Work Phone: 1996 diphtheria, tetanus toxoids and acellular pertussis vaccine, unspecified formulation Unknown Unknown [facility] Work Phone: 1996 DTaP, unspecified formulation [place] [facility] 1996 diphtheria, tetanus toxoids and acellular pertussis vaccine, unspecified formulation Unknown Unknown [facility] Work Phone: 1996 DTaP, unspecified formulation Tyrone Polancopsey [facility] 1996 haemophilus influenz ae type b vaccine, conjugate unspecified formulation Unknown Unknown [facility] Work Phone: 1996 Hib, unspecified formulation Tyrone Polancopsey [facility] 1996 measles, mumps and rubella virus vaccine Unknown Unknown [facility] Work Phone: 1996 varicella virus vaccine Unknown Unknown [facility] Work Phone: 1996 diphtheria, tetanus toxoids and acellular pertussis vaccine, unspecified formulation Unknown Unknown [facility] Work Phone: 1996 DTaP, unspecified formulation [place] [facility] 1996 haemophilus influenz ae type b vaccine, conjugate unspecified formulation Unknown Unknown [facility] Work Phone: 1996 hepatitis B vaccine, pediatric or pediatric/adolescent dosage Unknown Unknown [facility] Work Phone: 1996 Hib, unspecified formulation Tyrone Pranav [facility] 1996 trivalent poliovirus vaccine, live, oral Unknown Unknown [facility] Work Phone: 1996 hepatitis B vaccine, pediatric or pediatric/adolescent dosage Unknown Unknown [facility] Work Phone: Payers Date Payer Category Payer Self-pay [id number] 2023 Self-pay [id number] 2022 Private Health Insurance [id number] 2021 Unknown 2019 Commercial [employer]aged [employer] - PPO [id number] 02.315 1996 Unknown [id number] 2.16.84 0.1.531397.3.579.2.593 1996 Unknown [id number] 2.16.8 40.1.260930.3.579.2.727 1996 Unknown [id number] 2.16.8 40.1.755653.3.579.2.727 1996 Unknown [id number] 2.16.8 40.1.654890.3.579.2.727 1996 Unknown [id number] 2.16.840.1.003856.3.579.2.1286 1996 Unknown [id number] 2.16.840.1.074443.3.579.2.1286 1996 Unknown [id number] 2.16.840.1.656626.3.579.2.1286 1996 Unknown [id number] 2.16.840.1.880109.3.579.2.1286 1996 Unknown [id number] 2.16.8 40.1.398408.3.579.2.727 1996 Unknown [id number] 2.16.8 40.1.724134.3.579.2.727 1996 Unknown [id number] 2.16.8 40.1.529930.3.579.2.727 1996 Unknown [id number] 2.16.8 40.1.191669.3.579.2. 1996 Unknown [id number] 2.16.8 40.1.297716.3.579.2. 1996 Unknown [id number] 2.16.8 40.1.301852.3.579.2. 1996 Unknown [id number] 2.16.8 40.1.013537.3.579.2. 1996 Unknown [id number] 2.16.8 40.1.416552.3.579.2. 1996 Unknown [id number] 2.16.84 0.1.178178.3.579.2.1258 1996 Unknown [id number] 2.16.84 0.1.655569.3.579.2.1258 1996 Unknown [id number] 2.16.84 0.1.918805.3.579.2.1258 1996 Unknown [id number] 2.16.84 0.1.385977.3.579.2.9 1996 Unknown [id number] 2.16.84 0.1.462023.3.579.2.1258 1996 Unknown [id number] 2.16.84 0.1.631770.3.579.2.1258 1996 Unknown [id number] 2.16.84 0.1.706641.3.579.2.1258 1996 Unknown [id number] 2.16.84 0.1.231634.3.579.2.1259 1959 Unknown [id number] Unknown [id number] Unknown [id number] Unknown [id number] 2.16.8 40.1.430328.3.579.2.531 Unknown [id number] 2.16.8 40.1.802016.3.579.2.531 Unknown [id number] 2.16.8 40.1.672759.3.579.2.531 Unknown [id number] 2.16.8 40.1.058392.3.579.2.531 Unknown [id number] 2.16.8 40.1.079379.3.579.2.531 Unknown [id number] 2.16.8 40.1.753004.3.579.2.531 Unknown [id number] 2.16.8 40.1.602743.3.579.2.531 Unknown [id number] 2.16.8 40.1.472380.3.579.2.531 Unknown [id number] 2.16.8 40.1.718566.3.579.2.531 Unknown [id number] 2.16.8 40.1.627501.3.579.2.531 Unknown [id number] 2.16.8 40.1.724090.3.579.2.531 Unknown [id number] 2.16.8 40.1.461339.3.579.2.531 Unknown [id number] 2.16.8 40.1.576072.3.579.2.531 Unknown [id number] 2.16.8 40.1.782480.3.579.2.531 Social History Date Type Detail Facility Start: 07-14-2022 End: 03-21-2024 No alcohol use No alcohol use [place] [address] DO Work Phone: Start: 12-29-2020 End: 08-04-2023 Tobacco smoking status NHIS Never smoked tobacco (finding) [facility] Start: 1995 Sex Assigned At Female [facility] Start: 07-14-2022 End: 03-21-2024 Sex Assigned At [employer] Other Tobacco smoking status Never [facility] Tobacco smoking status NHIS Tobacco smoking consumption unknown [facility] Start: 1995 Sex Assigned At Not on file [facility] Start: 04-17-2022 End: 07-14-2022 Exposure to SARS-CoV-2 (event) Not sure [facility] Start: 07-14-2022 End: 2024 Tobacco use and exposure Smokeless tobacco non-user [facility] Start: 07-14-2022 End: 09-19-2024 Alcohol intake Lifetime non-drinker (finding) [facility] Start: 07-13-2022 Gender identity Identifies as female gender (finding) [facility] Start: 02-16-2024 [facility] Start: 03-19-2015 End: 09-22-2024 Sex Female (finding) [employer] [facility] Comment on above: Denies Tobacco smoking status No Smoking Status Entered [facility] NEGATED: Highlighted rowStart: NINF History of tobacco use Passive smoker [facility] Medical Equipment Procedure Code Equipment Code Equipment Origin al Text Equipment Identifier Dates Pen [place] 31G X 5 MM Start: 05-18-2022 Goals Date Patient Goal Desired Activity /State Personal health goal Functional Status Date Assessment Result Facility 09-06-2024 Functional Status N/A [facility] 09-05-2024 Functional Status N/A [facility] 09-05-2024 Functional Status N/A [facility] 03-18-2024 Functional Status N/A [facility] 09-29-2023 Functional Status N/A [facility] 03-22-2023 Functional Status N/A [facility] 02-18-2022 Functional Status N/A [facility] Clinical Notes 01-14-2022 to 09-19-2024 Aleisha Abreu LPN - 09/19/2024 2:00 PM HIPOLITO Robert - 09/07/2024 2:30 PM EST Note Date & Type Note Facility 09-19-2024 History of Presen t illness Narrative Reason [...] (PHENERGAN) 12.5 mg, Oral, Every 6 hours PRN ALLERGIES No Known Allergies PROBLEMS Active Ambulatory Problems Diagnosis Date Noted 22 weeks gestation of 07/11/2024 Second trimester 07/11/2024 Nausea and vomiting during 07/11/2024 Resolved Ambulatory Problems Diagnosis Date Noted No Resolved Ambulatory Problems Past Medical History: Diagnosis Date Anxiety Blood type, Rh positive H/O calculus of kidney during Tiffani's disease ([facility]) 02/2022 History of Obesity (BMI 30-39.9) Pericarditis HISTORY PAST MEDICAL HISTORY SOCIAL HISTORY Past Medical History: Diagnosis Date Anxiety Blood type, Rh positive H/O calculus of kidney during Tiffani's disease ([facility]) 02/2022 History of Obesity (BMI 30-39.9) [...] nursing note reviewed. Exam conducted with a head greenskeeper present. Vitals: Estimated body mass index is 39.49 kg/m as calculated from the following: Height as of 08/25/23: 5' 7 . Weight as of this encounter: 252 lb 1.9 oz. BP: 120/70 Patient's last menstrual period was 02/02/2024 (exact date). ASSESSMENT & PLAN ICD-10-CM 1. 32 weeks gestation of Z3A.32 POCT urinalysis dipstick manually resulted 2. Third trimester Z34.93 POCT urinalysis dipstick manually resulted 3. Abnormal TSH R79.89 Return OB: Patient presents today for a routine obstetrics appointment. Patient is currently 32w6d . Patient states she is doing well but has complaints of being tired due to current . Patient has verbalizes frequent movement. labor precautions was discussed/given and patient was instructed to perform kick counts three times a day. Orders Placed This Encounter Procedures POCT urinalysis dipstick manually resulted Follow Up: Patient is to return to office in 2 week for routine OB appointment. Documented by Aleisha Abreu LPN on behalf of: Brain Way DO documented in this encounter [facility] 09-07-2024 History of Presen t illness Narrative [...] H/O calculus of kidney during Tiffani's disease ([facility]) 02/2022 History of Obesity (BMI 30-39.9) [...] H[place]OLITO [place] documented in this encounter [facility] 09-07-2024 Note History and Physical HOSPITAL [...] scheduled. Rogelio Nath M.D. leeroy Dictated: 09/05/2024 [id number] Transcribed: 09/05/2024 [facility] Comment on above: Result Comment: Elec tronically Signed By: Pham GALLAGHER, Rogelio Robins\.br\Date and Time Signed: 09/07/24 08:38 EST 09-06-2024 Hospital Discharg e instructions Patient Education 09/06/2024 16:15:07 Concussion, Adult, Nasp-ma-Cpti Concussion, Adult A concussion is a brain [...] if you are dizzy. General instructions Take fozo-qin-gfjyaiu and prescription medicines only as told by your doctor. Avoid taking strong pain medicines (opioids) after a concussion. Do not drink alcohol until your doctor says you can. Watch your symptoms and tell other people to do the same. Other problems can occur after a concussion. Tell your shed workers supervisor, teachers, school nurse, school counselor, assistant boys track coach, or associate trainer about your injury and symptoms. Tell [...] the National Suicide Prevention Lifeline at or 506. This is open 24 hours a day. Text the Crisis Text Line at 150089. This information is not intended to replace advice given to you by your health care provider. Make sure you discuss any questions you have with your health care provider. Document Revised: 12/25/2022 Document Reviewed: 12/25/2022 [employer] Patient Education 2023 [employer] Follow Up Care 09/06/2024 13:58:27 With:DARWIN JONES Address: [address] [place] [address] [place] [address] [phone] Business (1) When:09/09/2024 16:14:40 Comments:Call to schedule a follow-up appointment with your primary care provider. Use Zofran as needed for nausea/vomiting. Return to the ED with any new or worsening symptoms. [facility] 09-06-2024 Note ED Patient Education Note Neurology [...] you are dizzy. General instructions ??? Take eixr-ner-yrydojx and prescription medicines only as told by your doctor. ??? Avoid taking strong pain medicines (opioids) after a concussion. ??? Do not drink alcohol until your doctor says you can. ??? Watch your symptoms and tell other people to do the same. Other problems can occur after a concussion. ??? Tell your shed workers supervisor, teachers, school nurse, school counselor, assistant boys track coach, or associate trainer about your injury and symptoms. Tell [...] You have any (more content not included)... [facility] 09-06-2024 Evaluation + Plan note Extrac hamilton [...] date 09/06/24 15:25:00 EST, 09/06/24 15:25:00 EST [facility] 01-21-2025 NoteDischarge Instructions Given Worsening The following Patient Education Materials have been given to the patient: ~~ EducationMaterialFisher [employer] [id number] Evaluation + Plan note Extracted from: Title:ED Note Author:Kirsten Kennethdes Grayson Date :09/05/24 Dehydration (E86.0: Dehydrat ion) Diarrhea, [...] Diagnostic Tests Pending * Urine Culture 09/05/24 [facility] [id number] Hospital Discharge instructions Patient Education 09/05/2024 04:35:45 Syncope, Adult, Negs-rn-Osys Syncope, Adult Syncope is when you pass [...] right away. Call your local emergency services (741 in the [place] Follow these instructions at [...] you until you feel better. Medicines Take wyes-qgu-etvbdxn and prescription medicines only as told by [...] provider. Document Revised: 12/11/2021 Document Reviewed: 12/11/2021 [employer] Patient Education 2023 [employer]. 09/05/2024 04:35:45 Nausea and Vomiting, Adult, Jqtx-bq-Fkqm Nausea and Vomiting, Adult Nausea is feeling [...] fruit juice). ?Low-calorie sports drinks. Eat bland, yllu-pi-nualkr foods in small amounts as you are able, such as: ?Bananas. ?Applesauce. ?Rice. ?Low-fat (lean) meats. ?[place]. ?Crackers. Avoid drinking fluids that have a lot of sugar or caffeine in them. This includes energy drinks, sports drinks, and soda. Avoid alcohol. Avoid spicy or fatty foods. General instructions Take fpxz-sng-naclgcv and prescription medicines only as told by your doctor. Drink enough fluid to keep your pee (urine) pale yellow. Wash your hands often with soap and water for at least 20 seconds. If you cannot use soap and water, use hand cashier and salesperson. Make sure that everyone in your home [...] your doctor about eating and drinking. Take quvf-zzg-sygpgtq and prescription medicines only as told by your doctor. Contact your doctor if your symptoms get worse or you have new symptoms. Keep all follow-up visits. This information is not intended to replace advice given to you by your health care provider. Make sure you discuss any questions you have with your health care provider. Document Revised: 02/06/2022 Document Reviewed: 02/06/2022 [employer] Patient Education 2023 [employer]. 09/05/2024 04:35:45 Diarrhea, Adult, Skbg-qv-Wsac Diarrhea, Adult Diarrhea is when you pass [...] regular sports drinks. ?Avoid alcohol. Eat bland, vpwp-wp-tzwcio foods in small amounts as you are able. These foods include: ?Bananas. ?Applesauce. ?Rice. ?Low-fat (lean) meats. ?[place]. ?Crackers. Avoid spicy or fatty foods. Medicines Take lnar-eoi-afhikht and prescription medicines only as told by your doctor. If you were prescribed antibiotics, take them as told by your doctor. Do not stop taking them even if you start to feel better. General instructions Wash your hands often using soap and water for 20 seconds. If soap and water are not available, usehand cashier and salesperson. Others in your home should wash their [...] provider. Document Revised: 01/19/2023 Document Reviewed: 01/19/2023 [employer] Patient Education 2023 [employer]. 09/05/2024 04:35:45 Dehydration, Adult, Cufw-rx-Kmzg Dehydration, Adult Dehydration is a condition in [...] or sea (high in altitude). The thinner, back tender pulp drier air causes more fluid loss. Doing [...] of fat or sugar. General instructions Take gdew-ldx-lgapsxg and prescription medicines only as told by [...] provider. Document Revised: 03/01/2023 Document Reviewed: 03/01/2023 [employer] Patient Education 2023 [employer]. Follow Up Care 09/05/2024 03:04:39 With:Brain WAY Address: [address] , [place] [address]- Business (1) When:09/07/2024 Comments:Call 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tube room supervisor prescriptions at [facility] With:DARWIN [place] Address: [address] [place] [phone] Business (1) When:09/08/2024 Comments:Please follow-up with Dr. Way for further evaluation management. Please return to the ED for any new or worsening symptoms. [facility] [id number] NoteProgress Note-Nurse @[phone] OB RN arrived in patient room in [...] about admission for further evaluation on OB unit.[facility]01-21-2025 NoteED Patient Education Note Gastroenterology Nausea and [...] ? Low-calorie sports drinks. ??? Eat bland, issi-rf-dkdnyd foods in small amounts as you are able, such as: ? Bananas. ? Applesauce. ? Rice. ? Low-fat (lean) meats. ? [place]. ? Crackers. ??? Avoid drinking fluids that have a lot of sugar or caffeine in them. This includes energy drinks, sports drinks, and soda. ??? Avoid alcohol. ??? Avoid spicy or fatty foods. General instructions ??? Take otyb-hfi-ksojhut and prescription medicines only as told by your doctor. ??? Drink enough fluid to keep your pee (urine) pale yellow. ??? Wash your hands often with soap and water for at least 20 seconds. If you cannot use soap and water, use hand cashier and salesperson. ??? Make sure that everyone in your [...] doctor about eating and drinking. ??? Take bhds-sjr-aazpgby and prescription medicines only as told by your doctor. ??? Contact your doctor if your symptoms get worse or you have new symptoms. ??? Keep all follow-up visits. This information is not intended to replace advice given to you by your health care provider. Make sure you discuss any questions you have with your health care provider. Document Revised: 02/06/2022 Document Reviewed: 02/06/2022 [employer] Patient Education ? 2023 [employer] Infectious Disease Diarrhea, Adult Diarrhea is [...] Take an ORS (ora (more content not included)...[facility] 08-25-2024 Evaluation note* Diagnosis Onset Date Resolution Status Admit Date Class 2 obesity with body ma ss index (BMI) of 37.0 to 37.9 in adult acute August 25 11:56am Tiffani's disease acute 2024 11:56am Hypothyroidism acute August 252024 11:56am Mild left ventricular hypertrophy acute August 25 11:56am Second trimester acute August 25, 2024 11:56am [facility] Work Phone: [phone] 335-180001-08-2025 History of Present illness Narrative* Aleisha Abreu [...] H/O calculus of kidney during Tiffani's disease ([facility]) 02/2022 History of Obesity (BMI 30-39.9) Pericarditis HISTORY PAST MEDICAL HISTORY SOCIAL HISTORY Past Medical History: Diagnosis Date Anxiety Blood type, Rh positive H/O calculus of kidney during Tiffani's disease ([facility]) 02/2022 History of Obesity (BMI [...] nursing note reviewed. Exam conducted with a head greenskeeper present. Vitals: Estimated body mass index is [...] Brain Way DO documented in this encounterSaint Alexius [id number] History of Present illness Narrative* Aleisha Abreu [...] H/O calculus of kidney during Tiffani's disease ([facility]) 02/2022 History of Obesity (BMI 30-39.9) Pericarditis HISTORY PAST MEDICAL HISTORY SOCIAL HISTORY Past Medical History: Diagnosis Date Anxiety Blood type, Rh positive H/O calculus of kidney during Tiffani's disease ([facility]) 02/2022 History of Obesity (BMI [...] nursing note reviewed. Exam conducted with a head greenskeeper present. Vitals: Estimated body mass index is [...] Brain Way DO documented in this encounterSaint Alexius [id number] History of Present illness Narrative* Laura Herron [...] male Have you been seen here at [facility] in a previous ? No Recent ER visits or hospitalizations? no Bring blood sugar log or meter with you today? (Please bring them with you for every visit at [facility]) n/a Flu vaccine (Jun-October)? Yes Any [...] effusion. Also she was then evaluated by mergers and acquisitions consultant who told her that she had pericarditis and that resolved with a taking Motrin however she did not had an echocardiogram. Saw Dr. Coronado. 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 Yes NotIn System Ref Prov vs382-sqdn-kxgoj acid ( 19) 29 mg iron- 1 [...] would recommend she establishes care with a nematology teacher for it to be further evaluated 7. [...] Please refer her locally to see a nematology teacher for the incidental finding on the CT [...] Hayden Reilly MD, FACOG (she/hers) Maternal- Medicine [facility] [address] [facility] [address] [place] [address] This document was created with Read[employer] technology. Though I make every effort to review the dictation as it is transcribed, on occasion the spoken word can be misinterpreted by the technology leading to inappropriate words, phrases, or sentences. This note is addressed to the requesting provider as a consultation for clinical guidance. Specificmedical abbreviations are occasionally used and those are generally approved by the [place]?Board of?Obstetrics and?Gynecology?as well as?Lauryn ulnd abbreviations. The above plan of care was based solely on the diagnoses for which a consultation was requested. ?More frequent testing may be indicated based on her other medical/obstetrical conditions. The management of other or medical conditions is beyond the scope of requested consultation and will c ontinue to be followed by the primary bullet swaging machine operator or primary care provider. Note to patient: [...] opinion of the practitioner. documented in this encounterMer[facility] Radiology [address] [facility] [place] [address] [place] [address] Ultrasound Report Signed Patient: Tawnya Herring MR#: [id number] : 1995 Acct:[id number] Age/Sex: 28 / F ADM Date: 4 Loc: Room: Type: [facility] Attending Dr: Brain Way DO Ordering Provider: [...] Norton Jr., D.OEfren06/22/2024 4:00 PM Dictation Location: [facility] Tech: Rae De Paz Transcribed By: AGUILAR 06/22/24 1600 Dictated By: Zay Norton Jr, DO 06/22/24 1552 Signed By: 06/22/24 1600 [facility]10-28-2024 History of Present illness Narrative * [...] H/O calculus of kidney during Tiffani's disease ([facility]) 02/2022 History of Obesity (BMI 30-39.9) Pericarditis HISTORY PAST MEDICAL HISTORY SOCIAL HISTORY Past Medical History: Diagnosis Date Anxiety Blood type, Rh positive H/O calculus of kidney during Tiffani's disease ([facility]) 02/2022 History of Obesity (BMI [...] pericarditis post last . We will send [facility] referral Follow Up: Patient is to return to office in 4 week for routine OB appointment. Documented by HIPOLITO Shore on behalf of: Brain Way DO documented in this encounterSaint Alexius [id number] Evaluation note* Diagnosis Onset Date Resolution Status Admit Date Well adult exam noneactive May 11, 2024 10:46am [facility] Work Phone: [phone]) 439-367709-25-2024 History of Present illness Narrative* Aleisha Abreu, NON DESTRUCTIVE EVALUATION MANAGER - 05/10/2024 1:50 PM EDT Reason for [...] H/O calculus of kidney during Tiffani's disease ([facility]) 02/2022 History of Obesity (BMI 30-39.9) Pericarditis HISTORY PAST MEDICAL HISTORY SOCIAL HISTORY Past Medical History: Diagnosis Date Anxiety Blood type, Rh positive H/O calculus of kidney during Tiffani's disease ([facility]) 02/2022 History of Obesity (BMI [...] nursing note reviewed. Exam conducted with a head greenskeeper present. Vitals: Estimated body mass index is [...] Brain Way DO documented in this encounterSaint Alexius [id number] History of Present illness Narrative* Coral Rg [...] H/O calculus of kidney during Tiffani's disease ([facility]) 02/2022 History of Obesity (BMI 30-39.9) Pericarditis HISTORY PAST MEDICAL HISTORY SOCIAL HISTORY Past Medical History: Diagnosis Date Anxiety Blood type, Rh positive H/O calculus of kidney during Tiffani's disease ([facility]) 02/2022 History of Obesity (BMI [...] nursing note reviewed. Exam conducted with a head greenskeeper present. Vitals: Estimated body mass index is [...] Brain Way DO documented in this encounterSaint Alexius [id number] History of Present illness Narrative* Thelma Elizabeth [...] calculated from the following: Height as of 24: 5' 7 . Weight as of this [...] or undercooked meat, and stay away from [facility]. Patient has also been advised to [...] Thelma Elizabeth LPN documented in this encounterSaint Alexius [id number] Hospital Discharge instructions Patient Education 03/18/2024 12:15:03 [...] provider. Document Revised: 01/31/2021 Document Reviewed: 01/31/2021 [employer] Patient Education 2022 [employer] 03/18/2024 12:15:03 Subchorionic Hematoma Subchorionic Hematoma [...] provider. Document Revised: 04/28/2021 Document Reviewed: 04/28/2021 [employer] Patient Education 2022 [employer]. Follow Up Care 03/18/2024 08:08:01 With:Rogelio Nath [address]: [address] [address], [address] [address]- Business (1) When:03/21/2024 11:54:39 [facility] Address: [address] [place] [phone] Business (1) When:Within 3 Day(s) [facility] 08-03-2024 NoteED Patient Education Note Obstetrics and [...] provider. Document Revised: 01/31/2021 Document Reviewed: 01/31/2021 [employer] Patient Education ? 2022 [employer]. Subchorionic Hematoma A hematoma is a collection of blood outside of the blood vessels. A subchorionic hematoma is a collection of blood between the outer wall of the embryo (chorion) and the inner wall of the uterus. This condi (more content not included)...[facility]04-04-2024 NoteHNO ID: [id number] Author: RUBY WHITTINGTON MD Service: ? Author [...] RTN 1 year. Ruby Whittington MD Endocrinology StaffScott [place]ille [address]-04-2024 History of Present illness Narrative* Ruby Whittington [...] Whittington MD Endocrinology Staff documented in this encounterMercy Memorial Hospital04-04-2024 Instructions* Patient Instructions* Odalis Greene - 11/18/2023 7:58 AM EDT Thank you for [facility] the [facility] Department of Endocrinology, Diabetes and Metabolism. Did you know that you need to call 48 hours in advance of your scheduled visit, if you are unable to make your appointment? The Endocrinology and Metabolism [facility] thanks you for your commitment, because patients not showing to their appointment results in a lost opportunity for patients to receive [facility] care at the [facility]. To Cancel an appointment, please choose one of the following: - Call the Appointment Call Center at [phone] - From [employer], Go to Appointments - Cancel Appts If cancelling, consider your need to reschedule to prevent further delays in your care. To Schedule an appointment, please choose one of the following: - Call the Appointment Call Center at [phone] - From [employer], Go to Appointments - Request an Appt documented in this encounterMercy Memorial Hospital02-14-2024 Hospital Discharge instructions Patient Education 09/29/2023 [...] numbers. This can be done either in French (U.S.) or metric measurements. Note that charts and online BMI calculators are available to help you find your BMI quickly and easily without having to do these calculations yourself. To calculate your BMI in French (U.S.) measurements: 1.Measure your weight in pounds [...] Centers for Disease Control and Prevention: www.cdc.gov [place] Heart Association: www.heart.org National Heart, Lung, and Blood Canvas: www.nhlbi.nih.gov Summary Body mass index (BMI) is a number that is calculated from a person's weight and height. BMI may help estimate how much of a person's weight is composed of fat. BMI can help identify thosewho may be at higher risk for certain medical problems. BMI can be measured using French measurements or metric measurements. BMI charts are used to identify whether you are underweight, normal weight, overweight, or obese. This information is not intended to replace advice given to you by your health care provider. Make sure you discuss any questions you have with your health care provider. Document Revised: 04/24/2020 Document Reviewed: 03/01/2020 [employer] Patient Education 2022 [employer]. 09/29/2023 11:04:59 Sinus Infection, Adult Sinus Infection, [...] saline washes). ?Medicines that treat allergies (antihistamines). ?Ydqj-klh-lwdruas pain relievers. If caused by bacteria, your [...] at home: Medicines Take, use, or apply ohsj-luc-sjmltew and prescription medicines only as told by [...] and water are not available, use hand cashier and salesperson. Do not smoke. Avoid being around people [...] provider. Document Revised: 07/07/2022 Document Reviewed: 07/07/2022 [employer] Patient Education 2022 [employer]. Follow Up Care 09/29/2023 09:12:00 With:DARWIN JONES CNP Address: [address] [place] [address] [place] [address]- When: Unknown [facility] 02-06-2024 Evaluation note* Encounter Date [...] BMI is required on scripts in the [facility]. Sep, Other *Progress note was completed with the assistance of voice recognition software for dictation purposes. Please excuse any grammatical errors that were not corrected during review process. [employer] Other 01-10-2024 Evaluation note* Encounter Date Diagnosis [...] that were not corrected during review process. [employer] Other 12-01-2023 Miscellaneous Notes* Telephone Encounter - Kenan Gomez - 07/16/2023 9:39 AM EST LVM to let patient know their appt has been rescheduled with Dr. Whittington. documented in this encounterMercy Memorial Hospital11-08-2023 Evaluation note* Encounter Date Diagnosis Assessment [...] comfortable prescribing this medication at this time. [employer] Other 10-24-2023 NoteHNO ID: [id number] Author: Francy Gan PA-C Service: ? Author Type: Physician Subassembly Supervisor Type: Progress Notes Filed: 06/08/2023 2:53 PM [...] will be in touch with results via [employer] HPI: Tawnya is a 27 year old [...] Medical Decision Making [facility] History of Present illness Narrative* Francy [...] will be in touch with results via [employer] HPI: Tawnya is a 27 year old [...] Level: 3 - Low documented in this encounterMercy Memorial Hospital10-24-2023 Instructions* Patient Instructions* Francy Gan PA-C - 06/08/2023 2:16 PM EDT Continue the omeprazole for another 1.5 months documented in this encounterMercy Memorial Hospital10-11-2023 Evaluation note* Encounter Date Diagnosis Assessment [...] that were not corrected during review process. [employer] Other 09-13-2023 Evaluation note* Encounter Date Diagnosis [...] Discussed short term 8 week course vs. jail management. Discussed pros and cons of taking [...] that were not corrected during review process. [employer] Other 09-01-2023 Evaluation note* Encounter Date Diagnosis [...] SCANNED INTO PATIENT CHART AND FAXED TO [employer]. Apr, Other We did briefly discussed the [...] that were not corrected during review process. [employer] Other 08-08-2023 Hospital Discharge instructions Patient Education 03/22/2023 22:52:44 Urinary Tract Infection, Adult, Paag-ow-Qxva Urinary Tract Infection, Adult A urinary tract [...] Follow these instructions at home: Medicines Take mjcf-dlw-obwxaho and prescription medicines only as told by [...] provider. Document Revised: 03/14/2021 Document Reviewed: 03/14/2021 [employer] Patient Education 2022 [employer] Follow Up Care 03/22/2023 19:54:03 With:DARWIN JANEJILLIAN Address: [address] [place] [phone] Business (1) When:03/25/2023 Comments:Follow-up with your primary care provider in 3 to 5 days. If symptoms worsen, do not improve, or new symptoms arise please report back to emergency department for further evaluation. [facility]08-07-2023 Evaluation + Plan note Diagnostic Tests Pending * Urine Culture 03/22/23 [facility]03-02-2023 Evaluation note* Encounter Date Diagnosis Assessment Notes Treatment Notes Treatment Clinical Notes Oct, Nausea & vomiting (ICD-10 - R11.2) [employer] Other 02-20-2023 Evaluation note* Encounter Date Diagnosis [...] Encounter for weight management (ICD-10 - Z76.89) [employer] Other 02-13-2023 Miscellaneous Notes* Addendum Note - [...] daily. Ruby Whittington MD documented in this encounterMercy Memorial Hospital01-18-2023 Evaluation note* Encounter Date Diagnosis Assessment [...] Encounter for weight management (ICD-10 - Z76.89) [employer] Other 01-10-2023 Evaluation note* Encounter Date Diagnosis [...] as inspiration Patient set the following goals: [employer] Other 12-16-2022 Evaluation note* Encounter Date Diagnosis [...] E06.3) She was recently seen by an ball thread machine tender at [facility] for elevated TSH. She is currently on adequate supplementation and will follow up with them. Jul, Daytime sleepiness (ICD-10 - R40.0) Continue to work on good sleep hygiene and control factors that she can.This could also improve with additional water intake. Jul, Mild depression (ICD-10 - F32.9) Jul, Encounter for weight management (ICD-10 - Z76.89) [employer] Other 11-29-2022 History of Present illness Narrative* [...] for a Thyroid problem. Referring Physician: Darwin Easterwood, SALESPERSON FASHION ACCESSORIES, WELDING PROCESS SPECIALIST Reason for visit: Hypothyroidism due to [...] Endocrinology Staff CC: Darwin Jones APRN, CNP. [address] [place] [address] documented in this encounterMercy Memorial Hospital11-29-2022 Instructions* Patient Instructions* Soo Begum Ma - 07/14/2022 8:46 AM EST Thank you for choosing the [facility] Department of Endocrinology, Diabetes and Metabolism. Did you know that you need to call 48 hours in advance of your scheduled visit, if you are unable to make your appointment? The Endocrinology and Metabolism [facility] thanks you for your commitment, because patients not showing to their appointment results in a lost opportunity for patients to receive world class health care at the [facility]. To Cancel an appointment, please choose one of the following: - Call the Appointment Call Center at [phone] - From [employer], Go to Appointments - Cancel Appts If cancelling, consider your need to reschedule to prevent further delays in your care. To Schedule an appointment, please choose one of the following: - Call the Appointment Call Center at [phone] - From [employer], Go to Appointments - Request an Appt documented in this encounterMercy Memorial Hospital11-02-2022 Evaluation note* Encounter Date Diagnosis Assessment [...] and titrate her up slowly until [facility] insurance kicks in in August. We [...] will discuss at later date if needed. [employer] Other 10-20-2022 Evaluation note* Encounter Date Diagnosis [...] Pt understood and agreed to tx plan. [employer] Other 10-12-2022 Evaluation note* Encounter Date Diagnosis [...] patient set personal goal using given handout. [employer] Other 10-10-2022 Miscellaneous Notes* Telephone Encounter - Linn Hancock - 05/25/2022 2:35 PM EDT LVM for patient that appt on 05/[address] George has been rescheduled to 07/[facility] at [facility] with Dr. Robertson. sending mail reminder as well. 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 Her Mallampati is not [...] of a comprehensive approach to obesity management [employer] Other 09-02-2022 Evaluation note* Encounter Date Diagnosis [...] start the weight management program at [facility] in the coming months.Nothing further needed [...] that were not corrected during review process. [employer] Other 07-07-2022 Hospital Discharge instructions Patient Education [...] Follow these instructions at home: Medicines Take mbsl-hzn-uacmaye and prescription medicines only as told by [...] 04/27/2002 Document Revised: 08/05/2018 Document Reviewed: 05/14/2017 [employer] Patient Education 2020 [employer] 02/18/2022 22:49:49 Migraine Headache Migraine Headache A [...] Follow these instructions at home: Medicines Take mgoz-fza-iungnwr and prescription medicines only as told by your health care provider. Ask your health care provider if the medicine prescribed to you: ?Requires you to avoid driving or using heavy machinery. ?Can cause constipation. You may need to take these actions to prevent or treat constipation: ?Drink enough fluid to keep your urine pale yellow. ?Take qpym-rsg-crgwtif or prescription medicines. ?Eat foods that are [...] 08/02/2006 Document Revised: 11/24/2019 Document Reviewed: 09/14/2019 [employer] Patient Education 2020 [employer]. Follow Up Care 02/18/2022 20:32:17 With:DARWIN JONES Address: [facility] [facility] [place] [place] [phone] Business (1) When:Within 3 Day(s) [facility]07-06-2022 Evaluation + Plan noteExtracted from: Title:ED Note [...] voices understanding and is agreeable to plan. [facility]07-06-2022 Evaluation note* Encounter Date Diagnosis Assessment Notes [...] remind her of lab draw at [facility]. Feb, Thyromegaly (ICD-10 - E01.0) Discussed [...] that were not corrected during review process. [employer] Other 07-01-2022 History general Narrative - Reported* Type Description Date Medical History Anxiety Medical History pericardi tis- Resolved cardiology signed off Medical History Kidney stones during Medical History Tiffani's disease February 2022 Medical History Abnormal thyroid ult rasound February 2022 work-up pending by ENT Surgical History 2018 Surgical History Cystoscopy 05/2021 Surgical History 2020 Hospitalization History See surgical hx [employer] Other 07-01-2022 History general Narrative - Reported* Type Description Date Medical History Anxiety Medical History pericardi tis- Resolved cardiology signed off Medical History Kidney stones during Medical History Tiffani's disease February 2022 Medical History Abnormal thyroid ult rasound February 2022 work-up pending by ENT Medical History Parathyroid adenoma Surgical History 2019 Surgical History Cystoscopy 05/2021 Surgical History 2020 Hospitalization History See surgical hx [employer] Other 06-29-2022 Evaluation note* Encounter Date Diagnosis [...] that were not corrected during review process. [employer] Other 06-01-2022 History general Narrative - Reported* Type Description Date Medical History Anxiety Medical History pericardi tis- Resolved cardiology signed off Medical History Kidney stones during Medical History Elevated TSH January 2022 Surgical History 2018 Surgical History Cystoscopy 05/2021 Surgical History 2020 Hospitalization History See surgical hx [employer] Other Evaluation noteNo assessment information available [facility] Work Phone: Evaluation noteNo InformationNortThe Innovation Factory Other Evaluation note* Diagnosis 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 documented in this encounter [facility]Eval[facility]* Diagnosis 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 documented in this encounter [facility]Eval[facility] [place]* Diagnosis Dysphagia, unspecified type- Primary LPRD (laryngopharyngeal reflux disease) Other diseases of larynx documented in this encounter [facility]Eval[facility] [place]* Diagnosis Onset Date Resolution Status Obesity [facility] Work Phone: Evaluation note* Diagnosis 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 Irregular menstruation, unspecified Female infertility Female infertility of unspecified origin Calculus of kidney documented in this encounter [facility] Hospital[facility]* Diagnosis Onset Date Resolution Status Obesity acute Class 2 obesity with body ma ss index (BMI) of 37.0 to 37.9 in adult [facility] Work Phone: evaluation note* Diagnosis Onset Date Resolution Status Obesity acute Class 2 obesity with body ma ss index (BMI) of 37.0 to 37.9 in adult acute Class 2 obesity with body ma ss index (BMI) of 37.0 to 37.9 in adult [facility] Work Phone: evaluation note* Diagnosis Onset Date Resolution Status Class 2 obesity with body ma ss index (BMI) of 37.0 to 37.9 in adult acute Class 2 obesity with body ma ss index (BMI) of 37.0 to 37.9 in adult [facility] Work Phone: evaluation note* Diagnosis Onset Date Resolution Status Class 2 obesity with body ma ss index (BMI) of 37.0 to 37.9 in adult [facility] Work Phone: evaluation note* Diagnosis Onset Date Resolution Status Well adult exam noneactive [facility] Work Phone: evaluation note* Diagnosis Second trimester state, incidental 18 weeks gestation of Screening, , for anatomic survey Encounter for anatomic survey [facility] 20 weeks [facility] of - [...] type Depression affecting documented [facility]* Diagnosis 22 weeks gestation of Second trimester state, incidental Nausea and vomiting during Diabetes mellitus screening Screening for diabetes mellitus documented [facility] Diagnosis History of pericarditis- Primary Mild concentric left ventricular hypertrophy (LVH) 25 weeks gestation of documented in this encounter [facility]* Diagnosis Missed menses documented in this encounter [facility]* Diagnosis First trimester state, incidental Well woman exam with routine gynecological exam Routine gynecological examination Screen for STD (sexually transmitted disease) Screening examination for venereal disease Vaginal discharge Leukorrhea, not specified as infective documented in this encounter [facility]* Diagnosis Second trimester state, incidental documented in this encounter [facility]* Diagnosis 29 weeks gestation of Third trimester state, incidental Gastroesophageal reflux in documented in this encounter [facility]* Diagnosis Third trimester state, incidental 31 weeks gestation of size inconsistent with dates documented in this encounter [facility]* Diagnosis 32 weeks gestation of Third trimester state, incidental Abnormal TSH [facility] N[facility]ative - Reported* Type Description Date Medical History pericardi tis- Resolved cardiology signed off Medical History Kidney stones during Medical History Parathyroid adenoma Medical History Anxiety Medical History Tiffani's disease Medical History Depression Medical History Obesity Medical History GERD (gastroesophageal reflux di sease) Medical History Hypothyroidism Medical History Thyromegaly Surgical History 2018 Surgical History Cystoscopy 05/2021 Surgical History 2020 Hospitalization History See surgical hx [facility] Other History general Narrative - Reported* Type Description [...] History 2020 Hospitalization History See surgical hx [facility] Other History general Narrative - Reported* Type Description [...] History 2020 Hospitalization History See surgical hx [facility] Other History of Present illness Narrative* Patient [...] no other testing or intervention appears necessary. -[facility] [place] DO Work Phone: Hospital course Narrative No data available for this section [facility]ructionsNot on filedocumented in this encounter [facility]* Attachments The following attachments cannot be sent through Care Everywhere. * Preeclampsia (French) [facility] SystemInstructionsNot on file documented in this [facility]ProGu[facility] SystemProgress note No data available for this section [facility] Center[facility] (n[facility]ative)* Reason Dr. 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) Referral Organization [facility] Shai Moreira Referring Provider First Name Darwin Referring Provider Last Name Yasir Referring Provider Specialty Nurse Pract christine Referred Provider Specialty Endocrinolog y Referral Priority Routine [facility] Other Reason for referral (narrative)* Diagnostic Procedure Only (Routine) - Pending Review Specialty Diagnoses / Procedures Referred By Clint scott Referred To Contact XR IMAGING Diagnoses Dysphagia, unspecified type Procedures XR MODIFIED BARIUM SWALLOW W SPEECH THERAPY RADIOLOGIC EXAM SWALLOW FUNCTION CONTRAST STUDY Francy Gan PA-C [address] [place] [address] [place] [address] Referral ID Status Reason Start Date Expiration Date Visits Requested Visits Authorized [id number] Pending Review Auto-Generat ed Referral 3 07/07/2024 1 1 [facility] Chief Complaint TAWNYA HERRING is being seen for follow-up of a hospitalization for. Family History Unknown Family Member Name Dates Details No pertinent family history: Mother, Father, Sibling(V49.89, Z78.9) Status:Active Unknown Family Member Name Dates Details No pertinent family history: Mother, Father, Sibling(V49.89, Z78.9) Status:Active Relationship Condition Age at Onset Recorded Date/T tova father Hypertension Unknown Relationship Condition Age at Onset Recorded Date/T tova father Hypertension Unknown grandparent Hypothyroidism Unknown Summary Purpose Advance Directives Advance Directive Response Recorded Date/ Time Advance [...] :42pm I51.7 September 14, 2024 9 :43am Chief Complaint Admit Date z34.92 z3a.18 z86.39 z34.92 June 7:51am z86.39 July 31, 2024 8:43am LVH/20 wks August 25, 2024 1 1:56am I51.7 August 25, 2024 1 2:02pm Amb Documentation September 07, 2024 1 :42pm I51.7 September 14, 2024 9 :43am z86.39 September 21, 2024 8 :46am Reason for Referral Reason ENT- [facility]- thyromegal y/abnormal US/dysphagia Diagnosis 1 Dysphagia, unspecifi ed type (R13.10) [facility] Referring Provider First Name Darwin Referring Provider Last Name [facility] Referring Provider Specialty Nurse Pract christine Referred Organization [facility] Referred Address [address] [place], [place],[address] Referred Provider Specialty Ear, Nose an d Throat Referral Priority Routine Reason ABNORMAL US OF THYRO ID Newly discovered [employer] Diagnosis 1 Thyromegaly (E01.0) Referral Organization [facility] [place] Referring Provider First Name Darwin Referring Provider Last Name [facility] Referring Provider Specialty Nurse Pract itcalvin Referred Provider Specialty Ear, Nose an d Throat Referral Priority Routine Additional Source Comments INFORMATION SOURCE (unrecogn ized section and content) DATE CREATED AUTHOR 09/04/2021 [employer] DATE CREATED AUTHOR AUTHOR'S ORGANIZ ATION [facility] DATE CREATED AUTHOR AUTHOR'S ORGANIZ ATION 11/22/2023 [facility] DATE CREATED AUTHOR AUTHOR'S ORGANIZ ATION 03/20/2024 [facility] DATE CREATED AUTHOR AUTHOR'S ORGANIZ ATION 08/05/2024 [facility] DATE CREATED AUTHOR AUTHOR'S ORGANIZ ATION 09/06/2024 [facility] DATE CREATED AUTHOR AUTHOR'S ORGANIZ ATION 09/08/2024 [facility] DATE CREATED AUTHOR AUTHOR'S ORGANIZ ATION 09/13/2024 [facility] DATE CREATED AUTHOR AUTHOR'S ORGANIZ ATION 09/14/2024 [facility] DATE CREATED AUTHOR AUTHOR'S ORGANIZ ATION 09/21/2024 [facility] DATE CREATED AUTHOR AUTHOR'S ORGANIZ ATION 09/23/2024 [facility] Care Teams (unrecognized sec tion [...] [address] Attending Provider Active Start: [facility] 2023 End: November 01, 2023 Team Status: [...] Member Role Status Dates Darwin Jones , SALESPERSON FASHION ACCESSORIES Primary Care Provider Active Addi Ortega DO [facility] Attending Provider Active Team Status: Inactive Member Role Status Dates Darwin Joneserwood , SALESPERSON F[employer]ION ACCESSORIES Primary Care Provider Active [address] Attending Provider Active Team Status: Active Member Role Status Dates Darwin Joneserwood , SALESPERSON FASHION ACCESSORIES Primary Care Provider Active Ofelia Hester APRN Active Ofelia Hester , SALESPERSON [employer]ION ACCESSORIES Attending Provider Active Team Status: Inactive Member Role Status Dates Darwin Joneserwood , SALESPERSON FASHION ACCESSORIES Primary Care Provider Active Ofelia Hester , SALESPERSON F[employer]ION ACCESSORIES Attending Provider Active Team Status: Inactive Member Role Status Dates PHYSICIAN NO FAMILY Primary Care Provider Active Addi Ortega DO [facility] Attending Provider Active Team Status: Active Member Role Status Dates PHYSICIAN NO FAMILY Primary Care Provider Active Team Status: Inactive Member Role Status Dates Darwin Joneserwood , SALESPERSON [employer]ION ACCESSORIES Primary Care Provider, Attend ing Provider Active Team Status: Inactive Member Role Status Dates Darwin Jones , SALESPERSON F[employer]ION ACCESSORIES Primary Care Provider Active Saad Valera DO Attending Provider Active Hospitality Director Relationship Specialty Start Date End Date [place], Darwin, WELDING PROCESS SPECIALIST [address] [address] Referring Family Medicine 04/22/22 Hospitality Director Relationship Specialty Start Date End Date [place], Darwin, WELDING PROCESS SPECIALIST [address] [address] Referring Family Medicine 04/22/22 Team Status: Inactive Member Role Status Dates Darwin Joneserjillian , SALESPERSON FASHION ACCESSORIES Primary Care Provider Active Jeovanny Quiros DO Emergency Provider Active Hospitality Director Relationship Specialty Start Date End Date [place], Darwin, WELDING PROCESS SPECIALIST [address] [address] Referring Family Medicine 04/22/22 Hospitality Director Relationship Specialty Start Date End Date [place], Darwin, WELDING PROCESS SPECIALIST [address] [facility] [address] [place] [address] Referring Family Medicine 04/22/22 Team Status: Inactive Member Role Status Dates Darwin Jones APRN Attending Provider Active Start: July 23, 2023 End: July 23, 2023 Team Status: Inactive Member Role Status Dates Darwin Jones APRN Attending Provider Active Start: August 25, 2023 End: August 25, 2023 Hospitality Director Relationship Specialty Start Date End Date Darwin Jones CNP [address] [place] [id number] Referring Family Medicine 04/22/22 Team Status: Inactive Member Role Status Dates Darwin Jones APRN Primary Care Pr ovidflorentin, Attending Provider Active Start: December 24, 2023 [...] Dates Darwin Jones APRN Primary Care Pr ovidflorentin, Attending Provider Active Start: January 25, 2024 [...] End: April 06, 2024 Addi PERES DO [facility] Attending Provider Active Start: April 06, [...] May 24, 2024 End: May 24, 2024 Hospitality Director Relationship Specialty Start Date End Date No Pcp, [place] [address] PCP - General Family Medicine 08/19/19 Hospitality Director Relationship Specialty Start Date End Date No Pcp, [place] [address] PCP - General Family Medicine 08/19/19 Team [...] June 28, 2024 End: June 28, 2024 Hospitality Director Relationship Specialty Start Date End Date No Pcp, [place] [address] PCP - General Family Medicine 08/19/19 Team [...] September 14, 2024 End: September 14, 2024 Team Status: Inactive Member Role Status Dates Darwin Jones APRN Primary Care Provider Active Start: September 21, 2024 End: September 21, [address] DO Attending Provider Active Start : September 21, 2024 End: September 21, 2024 Goals (unrecognized section and content) Goals [...] George has been rescheduled to 07/08 at [facility] with Dr. Robertson. sending mail [...] or prosecute any alcohol or drug abuse patient.[facility] HospitalIn the event this information is protected by the Federal Confidentiality of Alcohol and Drug Abuse Patient Records regulations: The Federal rules restrict any use of the information to criminally investigate or prosecute any alcohol or drug abuse patient.[facility] HospitalIn the event this information is protected by the Federal Confidentiality of Alcohol and Drug Abuse Patient Records regulations: The Federal rules restrict any use of the information to criminally investigate or prosecute any alcohol or drug abuse patient.[facility] HospitalIn the event this information is protected by the Federal Confidentiality of Alcohol and Drug Abuse Patient Records regulations: The Federal rules restrict any use of the information to criminally investigate or prosecute any alcohol or drug abuse patient.[facility] HospitalIn the event this information is protected by the Federal Confidentiality of Alcohol and Drug Abuse Patient Records regulations: The Federal rules restrict any use of the information to criminally investigate or prosecute any alcohol or drug abuse patient.[facility] HospitalIn the event this information is protected by the Federal Confidentiality of Alcohol and Drug Abuse Patient Records regulations: The Federal rules restrict any use of the information to criminally investigate or prosecute any alcohol or drug abuse patient.[facility] FOR RECORDS PERTAINING TO PATIENTS WHO [...] BE BASED ON THE PRIMARY CLINICAL RECORDS. [facility] [employer] [facility]. provides no warranty or guarantee of the accuracy or completeness of information in this document.
[2024-09-25 10:01] VITALS: BP 126/82; PULSE 93
== END 2024-09-25 10:54 | disposition home or self-care (01) ==
LOC: FBCO 01:23 → FBC 09:55
PROVIDERS: PCP Nurse Practitioner Family; Visit Provider Obstetrics & Gynecology
DX: O36.63X0 Maternal care for excessive fetal growth, third trimester, not applicable or unspecified (principal)
CPT/HCPCS: 59025

== ENCOUNTER 2024-09-28 03:00 | Outpatient (OUT) | payer OTHER, SELFPAY ==
--- OUTSIDE RECORDS SUMMARY | 2024-09-28 03:06 | XMS_ITS | CCD ---
Author Organization [facility] Care Team Providers Care Skiver Operator Name Role Phone Unknown, Unknown Unavailable Unavailable Unavailable Unavailable NO FAMILY, PHYSICIAN Primary Care Provider Unava ilable DO Addi Ortega Attending Provider [phone] Darwin Jones Unavailable DARWIN JONES Primary Care Physician Lilly Luke Unavailable SHIRLEY Jones Primary Care Provider SHIRLEY Jones Attending Provider DO Saad Valera Attending Provider Ofelia Hester Unavailable [facility] AMIE Darwin Unavailable Sima Ross Unavailable [facility] AMIE Darwin Unavailable SHIRLEY Jones Primary Care Provider SHIRLEY Hester Attending Provider SHIRLEY Jones Primary Care Provider SHIRLEY Hester Attending Provider Brain Way Attending Provider REQUEST, DR HOBSON LISTED Primary Care Unavaila ble SEAMUS ., DR YEUNG Attending Unavailable SEAMUS ., DR YEUNG Consulting Unavailable SEAMUS ., DR YEUNG Admitting Unavailable SHIRLEY Jones Primary Care Provider DO Addi Ortega [facility]ending [facility] Provider DO Jeovanny Quiros Emergency Provider [phone] [facility] Care Provider DO Addi Ortega Attending Provider [phone] [facility] Primary Care Provider Brain Way Attending Provider [facility] Primary Care Provider Brain Way Attending Provider RUBY WHITTINGTON Attending Unavailable FRANCY GAN Attending Unavailable [facility] SHIRLEY Anaya Primary Care Provider Brain Way Attending Provider [facility] Primary Care Provider DO Brain Way Attending Provider [place] Attending Unavailable Gabriel Curtis Attending Unavailable Tyrone Rock Attending Unavailable [facility] Primary Care Provider DO Brain Way Attending Provider [facility] DO Addi PERES Attending Provider [facility] Primary Care Provider DO Brain Way Attending Provider [facility] Primary Care Provider DO Brain Way Attending Provider Unavailable Primary Care Provider Unavailabl e No Pcp, No Pcp Primary Care Provider Unavailabl e [facility] Darwin WATSON Primary Care Provider [phone] [facility] Addi SELLERS Attending Provider Brain Way DO Attending Provider SEAMUS, BRAIN R Referring Unavailable NO PCP, NO PCP Primary Care Unavailable HAYDEN REILLY P Attending Unavailable NO PCP, NO PCP Primary Care Unavailable HAYDEN REILLY P Referring Unavailable DARCY ENRIQUEZ Attending Unavailable SEAMUS, BRAIN R Referring Unavailable NO PCP, NO PCP Primary Care Unavailable [place] 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, Darwin Anaya Primary Care Provider Brain Way [...] BRAIN Attending Unavailable SEAMUS, BRAIN Attending Unavailable [facility] 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, Darwin Anaya Primary Care Provider Willow Way DOy Attending Provider Darwin Jones Primary Care Unavailable Mary Ellen [...] Brain Admitting Unavailable Seamus, Brain Attending Unavailable [facility], Darwin Anaya Primary Care Unavailable Seamus, Brain Admitting Unavailable Seamus, Brain Attending Unavailable [facility], Darwin Anaya Primary Care Unavailable [facility], Addi P Attending Unavailable [facility], Addi P Admitting Unavailable [facility], Darwin Anaya Primary Care Unavailable Seamus, Brain Admitting Unavailable [facility], Darwin J Primary Care Unavailable Seamus, Brain Attending Unavailable Seamus, Brain Admitting Unavailable [facility], Darwin J Primary Care Unavailable Seamus, Brain Attending Unavailable Seamsu, Brain Attending Unavailable Seamus, Brain Admitting Unavailable [facility], Darwin J Primary Care Unavailable Allergies Allergy Classification Reported Allergen(s) Allergy Type Date of Onset Reaction(s) Facility (6 sources) No Known Medication Allergies; Translations: [No Known Medication Allergies] Propensity to adverse reactions (disorder) [facility] Repository Medications Current Medications Medication [...] tablet (2 sources) Opioid Agonist Start: 06-03-2021 [place] 325 mg-5 mg oral tablet 2 tab(s), [...] day(s), # 20 tab(s), Refills(s) 0, Pharmacy: [facility], 170.2, cm, 09/29/23 10:44:00 EST, Height/Length [...] day(s), # 28 cap(s), Refills(s) 0, Pharmacy: [facility], 170.2, cm, 03/22/23 20:14:00 EDT, Height/Length Dosing, 113.5, kg, 03/22/23 20:14:00 EDT, Weight Dosing Start Date: 03/22/23 Stop Date: 03/29/23 Status: Ordered Start: 07-03-2021 take 1 capsule by mo uth twice daily Keflex 500 mg Cap 500 mg = 1 cap(s), Oral, BID, # 10 cap(s), Refills(s) 0, Pharmacy: [facility], 170, cm, 06/27/21 10:56:00 EST, Height/Length [...] Start: 08-25-2024 take 1 capsule by mo [facility] once daily Levothyroxine 100 mcg capsule [...] day(s), # 21 tab(s), Refills(s) 0, Pharmacy: [facility], 170.2, cm, 09/29/23 10:44:00 EST, Height/Length [...] Apr, Active take 1 capsule by mo [facility] once daily omeprazole (PRILOSEC) 20 mg [...] Date: 02/18/22 Stop Date: 02/21/22 Status: Ordered Rck955-Lbxsllm Fumarate-Fa () 28-800 mg-mcg Tablet (20 sources) Start: 12-29-2020 Vqj010-Khquyjl Fumarate-Fa () 28-800 mg-mcg Tablet Active TAB PO December 29, 2020 3:43pm Start: 12-29-2020 End: 10-07-2023 Bbx838-Hrdpdff Fumarate-Fa ( ) 28-800 mg-mcg Tablet Discontinued TAB PO December 28, 2020 11:00pm October 07, 2023 6:06pm Start: 12-29-2020 End: 10-07-2023 Nga418-Frnnvef Fumarate-Fa ( ) 28-800 mg-mcg Tablet Discontinued TAB PO December 29, 2020 12:00am October 07, 2023 7:06pm Start: 12-29-2020 Zqj725-Mutzmlj Fumarate-Fa () 28-800 mg-mcg Tablet Active TAB PO December 28, 2020 11:00pm Start: 12-29-2020 Mkn250-Dhgcukp Fumarate-Fa () 28-800 mg-mcg Tablet Active TAB PO December 29, 2020 12:00am -jvsi fum-folic ac-o m3 (One Daily ) (12 sources) Start: 08-25-2024 -aqru fum-folic ac-om3 (One Daily ) Active 1 PKG PO Daily August 25, 2024 12:10pm Start: 05-11-2024 End: 08-25-2024 gusssl77-uqam fum-folic ac-o m3 (One Daily ) Discontinued PO May 10, 2024 11:00pm August 25, 2024 12:11pm Start: 05-11-2024 yypggd18-xrot fum-folic ac-om3 (One Daily ) Active PO May 10, 2024 11:00pm Start: 05-11-2024 -tcmz fum-folic ac-om3 (One Daily ) Active PO May 11, 2024 12:00am MV-Min-Fe Fum-FA-DHA ( 1 PO) (20 sources) MV-Min- Fe Fum-FA-DHA ( 1 PO) Take 1 each by mouth Daily Active hz372-fptx-qjxdh acid ( 19) 29 mg iron- 1 mg tablet,chewable (2 sources) xo160-vcbg-abrig acid ( 19) 29 mg iron- 1 [...] source) Vitamin B12 cyanocobalamin/f olic acid (VITAMIN C92-TBLOE ACID) 1,000-400 mcg lozg Take by mouth [...] Active Start: 08-25-2023 [facility] before breakfast Phentermine HCl 37.5 MG 1 tablet before breakfast Orally Once a day for 30 days Aug, Active Start: 06-23-2023 [facility] before breakfast Phentermine HCl 37.5 MG 1 tablet before breakfast Orally Once a day for 30 days Jun, Active Start: 05-26-2023 take 1 capsule by [facility] every twenty-four hours Phentermine HCl 37.5 MG 1 capsule Orally Once a day for 30 days May, Active Comment on above: Take 37.5 mg by mola h. Vitamin (14 sources) Vitamin OTC Not-Taking [...] Facility OB BPP W NON-STRESS on 09-22-2024 [place] [address] Ultrasound Report Signed Patient: TAWNYA HERRING MR#: [id number] : 1995 Acct:[id number] Age/Sex: 29 / F ADM Date: 09/22/24 Loc: [facility] 252-[address]: Brain Way D.O. Ordering Physician: Brain Way D.O. Date of Service: 09/22/24 Procedure(s): US OB BPP w non-stress Accession Number(s): [id number] cc: Darwin Jones INSTALLMENT DEALER; Brain Way D.O. [address] [address] Patient Name: TAWNYA HERRING MRN: [id number] date: 1995 Sex: F Assigned Patient Location: [facility] Current Patient Location: [facility] Accession/Order Number: [id number] Exam Date: 09/22/2024 11:07 Report Date: 09/22/2024 [...] Signed By: 09/22/24 1138 DD/ 1135 TD/TT: Milled Rubber Tender: [facility] Radiology, Radiolognoel contreras MD - 09/22/2024 [place] [address] Ultrasound Report Signed Patient: TAWNYA HERRING MR#: [id number] : 1995 Acct:[id number] Age/Sex: 29 / F ADM Date: 09/22/24 Loc: [facility] 252-[address]: Brain Way D.O. Ordering Physician: Brain Way D.O. Date of Service: 09/22/24 Procedure(s): US OB BPP w non-stress Accession Number(s): [id number] cc: Darwin Jones INSTALLMENT DEALER; Brain Way D.O. The [place] [id number] Patient Name: TAWNYA HERRING MRN: [facility]:[id number] date: 1995 Sex: F Assigned Patient Location: [facility] Current Patient Location: [facility] Accession/Order Number: [id number] Exam Date: 09/22/2024 11:07 Report Date: 09/22/2024 [...] Signed By: 09/22/24 1138 DD/ 1135 TD/TT: Milled Rubber Tender: [facility] Radiology Study observation (narrative) [facility] US OB BPP W NON-STRESS Ordered By: Radiologist Radiology on 09-22-2024 [facility] Work Phone: Thyroid Stimulating Hormoneo n 09-21-2024 TSH Qn 2.52 m[IU]/L Normal 0.45-5.33 [facility] Comment on above: Result Comment: PERF ORMED BY: [place] [address] PATHOLOGIST SERVICE DELIVERY ANALYST MIS SCHMIDT M.D. Performed By: #### T SH3 #### [address] Thyrotropin [Units/volume] i n Serum or PlasmaOrdered By: Brain Way on 09-21-2024 TSH Qn Thyrotropin [Units/v olume] in Serum or Plasma 0.45-5.33 [facility] Urinalysis macro (dipstick) panel (U)on 09-19-2024 Bilirubin, UA Positive Negative - 4(70) +++ mg/dL [facility] Comment on above: small Blood, UA Negative Negative - 50 Dain/mcL [facility] Clarity, UA Clear [facility] Color, UA Wendy [facility] Glucose, UA Negative Negative - 2000(110) ++++ mg/dL [facility] Interpretation and review of laboratory results Abnormal [facility] Ketones, UA Positive Negative - 160(16) ++++ mg/dL [facility] Comment on above: trace Leukocytes, UA Negative Negative - 500+++ Chaparrita/mcL [facility] Nitrite, UA Negative Negative - Positive [facility] pH, UA 6 5 - 9 [facility] Protein, UA Positive Negative - 2000(20) ++++ mg/dL [facility] Comment on above: 30 Spec Grav, UA 1.025 1 - 1.03 [facility] Urobilinogen, UA 1.0 0.2 - 12 mg/dL [facility] US OB BPP W NON-STRESS on 09-15-2024 [place] [address] Ultrasound Report Signed Patient: TAWNYA HERRING MR#: [id number] : 1995 Acct:[id number] Age/Sex: 29 / F ADM Date: 09/14/24 Loc: [facility] 254-[address]: Brain Way D.O. Ordering Physician: Brain Way D.O. Date of Service: 09/14/24 Procedure(s): US OB BPP w non-stress Accession Number(s): [id number] cc: Darwin Jones INSTALLMENT DEALER; Brain Way D.O. The [address] [address] Patient Name: TAWNYA HERRING MRN: [id number] date: 1995 Sex: F Assigned Patient Location: Current Patient Location: Accession/Order Number: [id number] Exam Date: 09/14/2024 19:57 Report Date: 09/15/2024 [...] M.D. Signed By: 09/15/24616 DD/ 4 TD/TT: Milled Rubber Tender: [facility] Radiology, Radiologi MD diane - 09/15/2024 [place] [address] Ultrasound Report Signed Patient: TAWNYA HERRING MR#: [id number] : 1995 Acct:[id number] Age/Sex: 29 / F ADM Date: 09/14/24 Loc: [facility] 254-[address]: Brain Way D.O. Ordering Physician: Brain Way D.O. Date of Service: 09/14/24 Procedure(s): US OB BPP w non-stress Accession Number(s): [id number] cc: Darwin Jones INSTALLMENT DEALER; Brain Way D.O. The [address] [address] Patient Name: TAWNYA HERRING MRN: [facility]:[id number] date: 1995 Sex: F Assigned Patient Location: Current Patient Location: Accession/Order Number: [id number] Exam Date: 09/14/2024 19:57 Report Date: 09/15/2024 [...] M.D. Signed By: 09/15/24616 DD/ 4 TD/TT: Milled Rubber Tender: [facility] Radiology Study observation (narrative) [facility] OB [facility]PP W NON-STRESS Ordered By: Radiologist Radiology on 09-15-2024 [facility] Work Phone: [facility] echo transthoracicon [facility] echo transthoracic [facility] [place] [address] Echocardiogram Signed Patient: Tawnya Shay MR#: [id number] : 1995 Acct:[id number] Age/Sex: 29 / F ADM Date: 09/14/24 Loc: Room: Type: [facility] Attending Dr: Mary Ellen Bruce MD Ordering Provider: Mary Ellen Bruce MD Date of Service: 09/14/24 [facility] echo transthoracic: I51.7 - Cardiomegaly Copies to: [...] Mary Ellen Bruce MD 09/14/24 1116 Normal [facility] US OB GROWTHon 09-11-[address] [address] Ultrasound Report Signed Patient: TAWNYA HERRING MR#: [id number] : 1995 Acct:[id number] Age/Sex: 29 / F ADM Date: 09/11/24 Loc: US Attending Dr: Mya Finch Ordering Physician: Mya Finch Date of Service: 09/11/24 Procedure(s): US OB growth Accession Number(s): [id number] cc: Mya Finch; Darwin Jones NP [address] [address] Patient Name: TAWNYA HERRING MRN: [id number] date: 1995 Sex: F Assigned Patient Location: Current Patient Location: US Accession/Order Number: [id number] Exam Date: 09/11/2024 10:00 Report Date: 09/11/2024 [...] Signed By: 09/11/24 1111 DD/ 1108 TD/TT: Milled Rubber Tender: [facility] Radiology, Radiologi MD diane - 09/11/2024 [place] [address] Ultrasound Report Signed Patient: TAWNYA HERRING MR#: [id number] : 1995 Acct:[id number] Age/Sex: 29 / F ADM Date: 09/11/24 Loc: US Attending Dr: Mya Finch Ordering Physician: Mya Finch Date of Service: 09/11/24 Procedure(s): US OB growth Accession Number(s): [id number] cc: Mya Finch; Darwin Jones NP The [address] [address] Patient Name: TAWNYA HERRING MRN: [facility]:[id number] date: 1995 Sex: F Assigned Patient Location: Current Patient Location: [place] Accession/Order Number: [id number] Exam Date: 09/11/2024 10:00 Report Date: 09/11/2024 [...] Signed By: 09/11/24 1111 DD/ 1108 TD/TT: Milled Rubber Tender: [facility] Radiology Study observation (narrative) [facility] US OB GROWTHOrdered By: Halima ologist Radiology on 09-11-2024 [facility] Work Phone: C Urineon 09-07-2024 Bacteria [...] Locations R1: [facility], [address] [place] [address], [address] , [place], Normal [facility] Comment on above: Performed By: #### 2 [id number] #### [facility] [address] [place] [address] Urinalysis macro (dipstick) panel (U)on 09-07-2024 Bilirubin, UA Negative Negative - 4(70) +++ mg/dL [facility] Blood, UA Negative Negative - 50 Dain/mcL [facility] Clarity, UA Clear [facility] Color, UA Yellow [facility] Glucose, UA Negative Negative - 1999(110) ++++ mg/dL [facility] Interpretation and review of laboratory results Normal [facility] Ketones, UA Negative Negative - 160(16) ++++ mg/dL [facility] Leukocytes, UA Negative Negative - 500+++ Chaparrita/mcL [facility] Nitrite, UA Negative Negative - Positive [facility] pH, UA 8 5 - 9 [facility] Protein, UA Negative Negative - 1999(20) ++++ mg/dL [facility] Spec Grav, UA 1.015 1 - 1.03 [facility] Urobilinogen, UA 1.0 0.2 - 12 mg/dL [facility] ED Clinical Summaryon 2024 ED Clinical Summary ED Clinical Summary [place] [id number] ED Clinical Summary Person Information Name: TAWNYA HERRING [facility] Age: 29 Years : 1995 Sex: Female Language: Nepalese PCP: DARWIN JONES CNP Marital Status: Single Phone: [phone] Visit Id: Visit Reason: Headache; HEADACHE, FALL [...] 09/06/2024 16:26:55 09/06/2024 16:26:55 09/06/2024 16:26:55 ADDRESS: [address] [place] [phone] PHYS DOC NOTES: MEDICAL INFORMATION: Prescriptions Given: [...] day. PATIENT EDUCATION INFORMATION: Instructions: Concussion, Adult, Ifhv-sa-Cxfr Follow up: With: Address: When: DARWIN [address] [place] [phone] Business (1) In 3 days 09/09/2024 Comments: Call to schedule a follow-up appointment with your primary care provider. Use Zofran as needed for nausea/vomiting. Return to the ED with any new or worsening symptoms. DIAGNOSIS: JEFFERSON (headache) Normal [facility] ED Note-Physicianon 09-06-19 ED Note-Physician [...] headache. She denies the use of any yfwl-aqi-gxccmxu medications for this. Patient denies any neck [...] [] Head CT not ordered by emergency patient care coordinator [] Head CT ordered for reasons other than trauma [] Patient is 18 or older, presenting with minor blunt head trauma. Head CT (including cosigned orders) was ordered by an emergency patient care coordinator for trauma because (select one or more):[SATISFIES MIPS PERFORMANCE]Reasons: [] Patient is 65 or older [] Patient GCS < 15 [] Patient has focal neurologic deficit [] Patient has severe headache [] Patient is vomiting [] Severe/dangerous mechanism of injury was identified(select one or more): []MVA with: patient ejection, of another passenger, rollover, speed > 40mph, airbag deployment, limb driver or passenger on ATV or motorcycle [...] cosigned orders) was ordered by an emergency patient care coordinator for trauma, no indication specified.[DOES NOT SATISFY MIPS PERFORMANCE] Medical Decision Making Patient is a 29-year-old female with a history of anxiety who presents to the ED 30 weeks with complaints of a headache following a syncope episode from a seated position yesterday. Patient is hemodynamically st (more content not included)... Normal [facility] Comment on above: Result Comment: Elec tronically Signed By: Lashon Tee PA-C\.br\Date and Time Signed: 09/06/24 16:20 EST\.br\Electronically Co-Signed By: Lashon Tee PA-C\.br\Date and Time Co-Signed: 09/06/24 16:21 EST\.br\Electronically Co-Signed By: Flash Franco DO\.br\Date and Time Co-Signed: 09/06/24 19:47 EST ED Patient Summaryon 025 ED Patient Summary ED Patient Summary [place] [address] Patient Discharge Instructions Person Information Name: TAWNYA HERRING Age: 29 Years Arrival Date: 09/06/2024 13:57:18 Discharge Diagnosis: JEFFERSON (headache) Primary Care Physician: DARWIN JONES CNP Provider Information Primary Provider: Flash Franco DO Advanced Code Number Stamper:Lashon Tee PA-C The exam and treatment you received in the Emergency Department were for an urgent problem and are not intended as complete care. It is important that you follow up with a doctor, nurse practitioner, or physician???s classroom assistant for ongoing care. If your symptoms [...] Follow-up Instructions: With: Address: When: DARWIN JONES [facility] [place] [phone] Business (1) In 3 days 09/09/2024 Comments: [...] participating provider. Patient Education Materials: Concussion, Adult, Rfpj-cq-Klmw A MESSAGE TO ALL PATIENTS REGARDING OPIOIDS PRESCRIPTION OPIOIDS: WHAT YOU NEED TO KNOW Prescription opioids can be used to help relieve fahrywvd-cs-zjvuup pain and are often prescribed following a [...] (www.fda.gov/Drugs/Resourc esForYou). (more content not included)... Normal [facility] BLOOD BANKOrdered By: Estefany Morillo on 09-05-2024 Fibronectin. Ql (Vag fld) Negative 1 (09/05/24 5:47 AM) Normal [facility] Comment on above: Interpretive Data: [...] Anion gap [Moles/Vol] 16 mmol/L Normal 6-16 [facility] Comment on above: Performed By: #### 2 [id number] #### [facility] [address] [place] [address] Calcium [Mass/Vol] 8.5 mg/dL Low 8.9-11.1 [facility] Comment on above: Performed By: #### 2 [id number] #### [facility] [address] [place] [address] Chloride [Moles/Vol] 108 mmol/L Normal 101-111 [facility] Comment on above: Performed By: #### 2 [id number] #### [facility] [address] [place] [address] CO2 [Moles/Vol] 17 mmol/L Low 21-31 [facility] Comment on above: Performed By: #### 2 [id number] #### [facility] [address] [place] [address] Creatinine [Mass/Vol] 0.4 mg/dL Low 0.5-1.3 [facility] Comment on above: Performed By: #### 2 [id number] #### [facility] [address] [place] [address] Glucose [Mass/Vol] 103 mg/dL Normal 55-199 [facility] Comment on above: Performed By: #### 2 [id number] #### [facility] [address] [place] [address] Potassium [Moles/Vol] 3.6 mmol/L Normal 3.5-5.3 [facility] Comment on above: Performed By: #### 2 093455 #### [facility] [address] [place] [address] Sodium [Moles/Vol] 137 mmol/L Normal 135-145 [facility] Comment on above: Performed By: #### 2 [id number] #### [facility] [address] [place] [address] Urea nitrogen [Mass/Vol] 9 mg/dL Normal 5-21 [facility] Comment on above: Performed By: #### 2 201144 #### [facility] [address] [place] [address] Urea nitrogen/Creatinine [Mass ratio] 22 No Units High 10-20 [facility] Comment on above: Performed By: #### 2 [id number] #### [facility] [address] [place] [address] CBC w/ Auto Diffon 5 Basophils/100 WBC (Bld) 0.4 % Normal 0.0-2.0 [facility] Comment on above: Performed By: #### 2 [id number] #### [facility] [address] [place] [address] Basophils/Leukocytes Auto (Bld) [Pure # fraction] 0.1 E9/L Normal 0.0-0.2 [facility] Comment on above: Performed By: #### 2 [id number] #### [facility] [address] [place] [address] Eosinophils (Bld) [#/Vol] 0.0 E9/L Normal 0.0-0.5 [facility] Comment on above: Performed By: #### 2 322283 #### [facility] [address] [place] [address] Eosinophils/100 WBC (Bld) 0.3 % Normal 0.0-8.0 [facility] Comment on above: Performed By: #### 2 [id number] #### [facility] [address] [place] [address] Erythrocyte distribution width (RBC) [Ratio] 12.7 % Normal 10.9-14.2 [facility] Comment on above: Performed By: #### 2 053885 #### [facility] [address] [place] [address] Hematocrit (Bld) [Volume fraction] 37.4 % Normal 34.0-46.0 [facility] Comment on above: Performed By: #### 2 267614 #### [facility] [address] [place] [address] Hemoglobin (Bld) [Mass/Vol] 13.2 g/dL Normal 12.0-16.0 [facility] Comment on above: Performed By: #### 2 098029 #### [facility] [address] [place] [address] Lymphocytes (Bld) [#/Vol] 1.1 E9/L Normal 1.0-4.0 [facility] Comment on above: Performed By: #### 2 126347 #### [facility] [address] [place] [address] Lymphocytes/100 WBC (Bld) 7.0 % Low 14.0-50.0 [facility] [facility] Comment on above: Performed By: #### 2 [id number] #### [facility] [address] [place] [address] MCH (RBC) [Entitic mass] 33.0 pg Normal 27.0-34.0 [facility] Comment on above: Performed By: #### 2 [id number] #### [facility] [address] [place] [address] MCHC (RBC) [Mass/Vol] 35.4 g/dL Normal 31.4-36.0 [facility] Comment on above: Performed By: #### 2 [id number] #### [facility] [address] [place] [address] MCV (RBC) [Entitic vol] 93.3 fL Normal 80.0-100.0 [facility] Comment on above: Performed By: #### 2 [id number] #### [facility] [address] [place] [address] Monocytes (Bld) [#/Vol] 0.7 E9/L Normal 0.2-1.0 [facility] Comment on above: Performed By: #### 2 [id number] #### [facility] [address] [place] [address] Neutrophils (Bld) [#/Vol] 13.7 E9/L High 2.0-7.5 [facility] Comment on above: Performed By: #### 2 [id number] #### [facility] [address] [place] [address] Neutrophils/100 WBC (Bld) 87.6 % High 36.0-75.0 [facility] Comment on above: Performed By: #### 2 [id number] #### [facility] [address] [place] [address] Platelet 324.0 E9/L Normal 150.0-500. 0 [facility] Comment on above: Performed By: #### 2 [id number] #### [facility] [address] [place] [address] Platelet mean volume (Bld) [Entitic vol] 8.3 fL Normal 6.4-10.8 [facility] Comment on above: Performed By: #### 2 [id number] #### [facility] [address] [place] [address] RBC (Bld) [#/Vol] 4.0 E12/L Low 4.3-5.9 [facility] Comment on above: Performed By: #### 2 [id number] #### [facility] [address] [place] [address] WBC corrected for nucl RBC Auto (Bld) [#/Vol] 15.6 E9/L High 4.0-11.0 [facility] Comment on above: Performed By: #### 2 [id number] #### [facility] [address] [place] [address] CHEMISTRYOrdered By: SYSTEM SYSTEM on 09-05-2024 Albumin [...] 2024 ED Clinical Summary ED Clinical Summary [place] [id number] ED Clinical Summary Person Information Name: TAWNYA HERRING [facility] Age: 29 Years : 1995 Sex: Female Language: Nepalese PCP: DARWIN JONES CNP Marital Status: Single Phone: [phone] Visit Id: Visit Reason: Abdominal pain - ; Vomiting - ; Syncope/Near syncope; PASSED OUT HIT HEAD,NAUSEA DIARRHEA VOMITING 30 WKS PREG Speciality: Acuity: 2 Enc Type: Emergency Med Service: Emergency Arrival: 09/05/2024 03:02:46 Discharge: LOS: 000 01:33 Checkin: 09/05/2024 03:02:46 Checkout: 09/05/2024 04:35:45 Dispo Type: Admitted as IP to this [facility] EVENTS: Event Name Event Status Request [...] 09/05/2024 04:35:45 09/05/2024 04:35:45 09/05/2024 04:35:45 ADDRESS: [address] [place] [id number] [facility] DOC NOTES: MEDICAL INFORMATION: Prescriptions Given: Medications to Continue with No Changes Other Medications citalopram (CeleXA 20 mg Tab) 1 Tablets By Mouth every day. PATIENT EDUCATION INFORMATION: Instructions: Syncope, Adult, Aasr-oh-Mpud; Nausea and Vomiting, Adult, Umhs-uo-Awky; Diarrhea, Adult, Uovv-ak-Bkvk; Dehydration, Adult, Opvb-gv-Rhns Follow up: With: Address: When: DARWIN JONES [address] [facility] [place] [phone] Business (1) In 3 days 09/08/2024 Comments: Please follow-up with Dr. Way for further evaluation management. Please return to the ED for any new or worsening symptoms. DIAGNOSIS: Dehydration; Diarrhea, unspecified; Nausea, vomiting, and diarrhea; Syncope Normal [facility] ED Note-Nursingon 09-05-2024 ED Note-Nursing ED Note-Nursing OB at bedside Normal [facility] ED Note-Physicianon 09-05-19 ED Note-Physician [...] and Complexity of Problems Differential Diagnosis: [] [facility] Data External documents reviewed: [] My [...] Dayna 50 mL [F] 50 mL + [id number] [F] 25 mg, IV Piggyback Disposition Plan [...] Use, 03/12/2020 (more content not included)... Normal [facility] Comment on above: Result Comment: Elec tronically Signed By: Gabriel Curtis DO.jaspal\Date and Time Signed: 09/05/24 04:22 EST ED Patient Summaryon 025 ED Patient Summary ED Patient Summary [address] [address] Patient Discharge Instructions Person Information Name: TAWNYA HERRING Age: 29 Years Arrival Date: 09/05/2024 03:02:46 Discharge Diagnosis: Dehydration; Diarrhea, unspecified; Nausea, vomiting, and diarrhea; Syncope Primary Care Physician: DARWIN JONES CNP Provider Information Primary Provider: Gabriel Curtis DO Advanced Code Number Stamper:None The exam and treatment you received in the Emergency Department were for an urgent problem and are not intended as complete care. It is important that you follow up with a doctor, nurse practitioner, or physician???s classroom assistant for ongoing care. If your symptoms [...] Follow-up Instructions: With: Address: When: DARWIN JONES [facility] [place] [address] [phone] Business (1) In 3 days 09/08/2024 Comments: Please follow-up with Dr. Way for further evaluation management. Please return to the ED for any new or worsening symptoms. In the event that this physician does not participate in your insurance network, please consult with your insurance company to find a nearby participating provider. Patient Education Materials: Syncope, Adult, Qpsp-la-Qymz; Nausea and Vomiting, Adult, Nrfm-ie-Awhf; Diarrhea, Adult, Reck-ka-Hvcs; Dehydration, Adult, Rske-wo-Ricc A MESSAGE TO ALL PATIENTS REGARDING OPIOIDS PRESCRIPTION OPIOIDS: WHAT YOU NEED TO KNOW Prescription opioids can be used to help relieve tjjjbpmr-xv-vebdny pain and are often prescribed following a [...] down t (more content not included)... Normal [facility] Extra Blueon 09-05-2024 Tube Collected Plasma Yes Invalid Interpretation Code [facility] Comment on above: Performed By: #### 1 [id number] #### [facility] [address] [place] [address] FFNon 09-05-2024 Fibronectin. Ql (Vag fld) Negative Normal [facility] Comment on above: Result Comment: [...] the antibody-antigen reaction. Performed By: #### 1 [id number] #### [facility] [address] [place] [address] HEMATOLOGYOrdered By: SYSTEM SYSTEM on 09-05-2024 Basophils/100 [...] 09-05-2024 Albumin [Mass/Vol] 3.8 g/dL Normal 3.3-5.0 [facility] Comment on above: Performed By: #### 2 [id number] #### [facility] [address] [place] [address] Albumin/Globulin (S) [Mass conc ratio] 1.5 Normal 1.1-2.2 [facility] Comment on above: Performed By: #### 2 [id number] #### [facility] [address] [place] [address] ALP [Catalytic activity/Vol] 80 Int._Unit/L Normal 21-98 [facility] Comment on above: Performed By: #### 2 [id number] #### [facility] [address] [place] [address] ALT No additional P-5'-P [Catalytic activity/Vol] 20 Int._Unit/L Normal 6-46 [facility] Comment on above: Performed By: #### 2 [id number] #### [facility] [address] [place] [address] AST [Catalytic activity/Vol] 15 Int._Unit/L Normal 5-43 [facility] Comment on above: Performed By: #### 2 [id number] #### [facility] [address] [place] [address] Bilirubin [Mass/Vol] 0.6 mg/dL Normal 0.0-1.1 [facility] Comment on above: Performed By: #### 2 377112 #### [facility] [address] [place] [address] Bilirubin.direct [Mass/Vol] 0.1 mg/dL Normal 0.0-0.4 [facility] Comment on above: Performed By: #### 2 [id number] #### [facility] [address] [place] [address] Bilirubin.indirect [Mass or moles/Vol] 0.5 mg/dL Normal 0.1-0.9 [facility] Comment on above: Performed By: #### 2 [id number] #### [facility] [address] [place] [address] Globulin (S) [Mass/Vol] 2.6 g/dL Normal 1.4-4.0 [facility] Comment on above: Performed By: #### 2 935278 #### [facility] [address] [place] [address] Protein [Mass/Vol] 6.4 g/dL Normal 6.0-7.8 [facility] Comment on above: Performed By: #### 2 [id number] #### [facility] [address] [place] [address] Influenza A&B Agon 5 Influenzae A Ag Negative Normal Negative [facility] Comment on above: Performed By: #### 1 [id number] #### [facility] [address] [place] [address] Influenzae B Ag Negative Normal Negative [facility] Comment on above: Result Comment: Test sensitivity and specificity vary for age group, specimen type, antigen types, and prevalence of disease. Test results must be evaluated in conjunction with other clinical data available to the physician. Individuals who received nasally administered Influenza A vaccine may have positive test results up to 3 days after vaccination. Performed By: #### 1 [id number] #### [facility] [address] [place] [address] Inpatient Clinical Summaryon 09-05-2024 Inpatient Clinical Summary Inpatient Clinical Summary [address] [address] Clinical Summary Person Information Name: TAWNYA HERRING [facility] Age: 29 Years : 1995 Sex: Female PCP: DARWIN JONES CNP Marital Status: Single Phone: [phone] Race: White Ethnicity: Non- or Language: Nepalese Visit Id: Visit Reason: Abdominal pain - ; Vomiting - ; Syncope/Near syncope; PASSED OUT HIT HEAD,NAUSEA DIARRHEA VOMITING 30 WKS PREG Speciality: Acuity: Obs Enc Type: Observation Med Service: Obstetrics Arrival: 09/05/2024 03:02:46 Discharge: 09/05/2024 15:50:00 Dispo Type: Home ([facility] [place]) Address: [address] [place] [phone] Provider Notes: Diagnosis: Dehydration; Diarrhea, unspecified; Nausea, [...] range between ( 80.0 and 100.0 ) Fulton Auto: 4.7 % -- Normal range between ( 4.0 and 14.0 ) MPV: 8.3 fL -- Normal range between ( 6.4 and 10.8 ) Neutro Auto: 87.6 % -- Normal range between ( 36.0 and 75.0 ) Platelet: 324.0 E9/L -- Normal range between ( 150.0 and 500.0 ) WBC: 15.6 E9/L -- Normal range between ( 4.0 and 11.0 ) Fulton Absolute: 0.7 E9/L -- Normal range between [...] 38.19 kg/m2 (more content not included)... Normal [facility] Inpatient Patient Summaryon 09-05-2024 Inpatient Patient Summary Inpatient Patient Summary [address] [address] Patient Discharge Instructions PERSON INFORMATION Name: TAWNYA HERRING Date of : 1995 Current Date: 09/05/2024 16:15:55 PHYSICIANS Admitting Physician: Rogelio Nath MD Primary Care Physician: DARWIN JONES CNP PCP Phone Number: [phone] Comment: Discharge Diagnosis: Dehydration; Diarrhea, unspecified; Nausea, [...] Follow up: With: Address: When: Brain WAY [facility], [address] [place] [address] , [place] [address] [email or web address] (1) In 2 days 09/07/2024 Comments: Call 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 Medicines ??? Take roky-gyt-rcsezha and prescription medicines only as told by [...] ? Flexing (more content not included)... Normal [facility] Lipase Levelon 09-05-2024 Lipase [Catalytic activity/Vol] 18 U/L Normal 13-58 [facility] Comment on above: Performed By: #### 2 [id number] #### [facility] [address] [place] [address] MICRO OTHER TESTSOrdered By: Barrington Maxwell on 09-05-2024 Influenzae A Ag Negative (09/05/24 3:34 AM) Normal Negative [facility] Influenzae B Ag Negative 3 (09/05/24 3:34 AM) Normal Negative [facility] Comment on above: Interpretive Data: [...] Troponin HS 2.70 pg/mL Low 10.10-27.1 0 [facility] Comment on above: Result Comment: The 95% CI (Confidence Interval) PPV (Positive Predictive Value) for myocardial infarction in females is 38 pg/mL, in males 51 pg/mL. The results should be used in conjunction with clinical conditions of myocardial infarction. (Access High Sensitivity Troponin I Instructions For Use, Nathen Rainbow, March 2018) Performed By: #### 1 [id number] #### [facility] [address] [place] [address] UA with Cult Rflxon 09-05-19 25 Bacteria Auto Ql (U) Trace Normal Trace Fish [facility] Comment on above: Performed By: #### 4 [id number] #### [facility] [address] [place] [address] Bilirubin Ql (U) 1+ mg/dL Abnormal Negative [facility] Comment on above: Performed By: #### 4 [id number] #### [facility] [address] [place] [address] Clarity (U) Turbid Abnormal Clear [facility] Comment on above: Performed By: #### 4 [id number] #### [facility] [address] [place] [address] Color (U) Dark-Yellow Abnormal Yellow [facility] Comment on above: Result Comment: Micr oscopic readings are only performed on those samples that meet specific criteria set forth by [facility]. Performed By: #### 4 [id number] #### [facility] [address] [place] [address] Epithelial cells.squamous Auto (Urine sed) [#/Area] 5-8 Invalid Interpretation Code [facility] Comment on above: Performed By: #### 4 [id number] #### [facility] [address] [place] [address] Glucose Ql (U) Trace Abnormal Negative [facility] Comment on above: Performed By: #### 4 [id number] #### [facility] [address] [place] [address] Hemoglobin Auto test strip (U) [Mass/Vol] Negative Normal Negative [facility] Comment on above: Performed By: #### 4 [id number] #### [facility] [address] [place] [address] Ketones Auto test strip Ql (U) 1+ mg/dL Abnormal Negative [facility] Comment on above: Performed By: #### 4 [id number] #### [facility] [address] [place] [address] Leukocyte esterase Auto test strip Ql (U) 25 Chaparrita/uL Normal Negative [facility] Comment on above: Performed By: #### 4 [id number] #### [facility] [address] [place] [address] Mucus Auto Ql (U) 4+ [id number] Abnormal Negative [facility] Comment on above: Performed By: #### 4 [id number] #### [facility] [address] [place] [address] Nitrite Auto test strip Ql (U) 1+ mg/dL Abnormal Negative [facility] Comment on above: Performed By: #### 4 [id number] #### [facility] [address] [place] [address] pH (U) 5.5 [pH] Invalid Interpretation Code 5.0-9.0 [facility] Comment on above: Performed By: #### 4 [id number] #### [facility] [address] [place] [address] Protein Ql (U) 1+ mg/dL Abnormal Negative [facility] Comment on above: Performed By: #### 4 [id number] #### [facility] [address] [place] [address] RBC Ql (U) 0-3 Normal 0-3 [facility] Comment on above: Performed By: #### 4 [id number] #### [facility] [address] [place] [address] Specific gravity (U) [Rel density] 1.029 Invalid Interpretation Code 1.005-1.03 0 [facility] Comment on above: Performed By: #### 4 [id number] #### [facility] [address] [place], [place] [id number] Urobilinogen (U) [Mass/Vol] 2 mg/dL Abnormal Negative [facility] Comment on above: Performed By: #### 4 [id number] #### [facility] [address] [place] [address] WBC Auto (Urine sed) [#/Area] 0-5 Normal 0-5 [facility] Comment on above: Performed By: #### 4 [id number] #### [facility] [address] [place] [address] Type of Urine collection method Clean Catch Normal [facility] Comment on above: Performed By: #### 4 [id number] #### [facility] [address] [place] [address] URINALYSISOrdered By: SYSTEM SYSTEM on 09-05-2024 Bacteria [...] that meet specific criteria set forth by [facility]. Epithelial cells.squamous Auto (Urine [...] 09-05-2024 eGFR 138 mL/min/1.73 m2 Normal >=59 [facility] Comment on above: Performed By: #### 1 [id number] #### [facility] [address] [place] [address] ALL CBC WITH AUTO DIFFon BASOPHILS ABSOLUTE AUTO 0 [facility] Basophils/100 WBC (Bld) 0.2 % 0.2 - 2.0 % [facility] Eosinophils/100 WBC (Bld) 0.8 % Low 0.9 - 7.0 % [facility] Erythrocyte distribution width (RBC) [Ratio] 12.1 % 11.0 - 15.0 % [facility] Hematocrit (Bld) [Volume fraction] 33.9 % Low 36.0 - 48.0 % [facility] Hemoglobin (Bld) [Mass/Vol] 11.6 g/dL Low 12.0 - 16.0 g/dL [facility] IMMATURE GRANULOCYTES ABS AUTO 0.03 [facility] Immature granulocytes/100 WBC (Bld) 0.3 % 0.0 - 0.5 % [facility] Interpretation and review of laboratory results Abnormal [facility] LYMPHOCYTES ABSOLUTE AUTO 1.8 [facility] Lymphocytes/100 WBC (Bld) 19.8 % Low 20.5 - 60.0 % [facility] MCH (RBC) [Entitic mass] 32.9 pg 26.7 - 34.0 pg [facility] MCHC (RBC) [Mass/Vol] 34.2 g/dL 29.9 - 35.2 g/dL [facility] MCV (RBC) [Entitic vol] 96 fL 81.0 - 99.0 fL [facility] MONOCYTES ABSOLUTE AUTO 0.5 [facility] Monocytes/100 WBC (Bld) 5.4 % 1.7 - 12.0 % [facility] NEUTROPHILS ABSOLUTE AUTO 6.6 High [facility] Neutrophils/100 WBC (Bld) 73.5 % 43.0 - 75.0 % [facility] Platelet mean volume (Bld) [Entitic vol] 10.2 fL 9.5 - 13.5 fL [facility] TBH EO # 0.1 [facility] TBH PLT 287 [facility] TB RBC 3.53 Low [facility] TB WBC 9 [facility] Basophils Auto (Bld) [#/Vol] on 08-25-2024 Basophils (Bld) [#/Vol] Automated basophil count 0.0-0.[address] [facility] Basophils/100 WBC Auto (Bld) on 08-25-2024 Basophils/100 WBC (Bld) Automated basophil % 0.2-2.0 [facility] Eosinophils/100 WBC Auto (Bl d)on 08-25-2024 Eosinophils/100 WBC (Bld) Automated eosinophil % Low 0.9-7.0 [facility] Erythrocyte distribution wid th Auto (RBC) [Ratio]on 08-25-2024 Erythrocyte distribution width (RBC) [Ratio] Erythrocyte distribution width [Ratio] by Automated count 11.0-15.0 [facility] FPG ECG *CARDIOLOGY ONLY*on 08-25-2024 FPG ECG *CARDIOLOGY ONLY* [facility] [place] [address] Electrocardiograph Report Signed Patient: Tawnya Herring MR#: [id number] 29 : 1995 Acct:[id number] Age/Sex: 29 / F ADM Date: 08/25/24 Loc: [facility] Room: Type: [facility] Attending Dr: Mary Ellen Bruce MD [...] Normal ECG Confirmed by Mary Ellen Bruce ([id number]) on 08/25/2024 1:42:57 PM Referred By: Electronically Signed By: Mary Ellen Bruce Transcribed By: MUS Signed By Mary Ellen Bruce MD 5 1342 Normal [facility] Hematocrit Auto (Bld) [Volum e fraction]on 08-25-2024 Hematocrit (Bld) [Volume fraction] Hematocrit [Volume Fraction] of Blood by Automated count Low 36.0-48.0 [facility] Hemoglobin [Mass/volume] in Bloodon 08-25-2024 Hemoglobin (Bld) [Mass/Vol] Hemoglobin [Mass/volume] in Blood Low 12.0-16.0 [facility] Laboratory - Chemistry and C hemistry - challengeon 08-25-2024 Glucose [Mass/Vol] 131 mg/dL High <130 [facility] - Hematology and Cell countson 08-25-2024 Immature granulocytes/100 WBC (Bld) 0.3 % 0.0-0.5 [facility] Leukocytes [#/volume] correc hamilton for nucleated erythrocytes in Blood by Automated counon 08-25-2024 WBC corrected for nucl RBC Auto (Bld) [#/Vol] Leukocytes [#/volume] corrected for nucleated erythrocytes in Blood by Automated coun 4.0-11.0 [facility] Lymphocytes Auto (Bld) [#/Vo l]on 08-25-2024 Lymphocytes (Bld) [#/Vol] Lymphocytes [#/volume] in Blood by Automated count 1.2-3.8 [facility] Lymphocytes/100 WBC Auto (Bl d)on 08-25-2024 Lymphocytes/100 WBC (Bld) Lymphocytes/100 leukocytes in Blood by Automated count Low 20.5-60.0 [facility] MCH Auto (RBC) [Entitic mass ]on 08-25-2024 MCH (RBC) [Entitic mass] MCH [Entitic mass] by Automated count 26.7-34.0 [facility] MCHC Auto (RBC) [Mass/Vol]on 08-25-2024 MCHC (RBC) [Mass/Vol] MCHC [Mass/volume] by Automated count 29.9-35.2 [facility] MCV Auto (RBC) [Entitic vol] on 08-25-2024 MCV (RBC) [Entitic vol] MCV [Entitic volume] by Automated count 81.0-99.0 [facility] Monocytes Auto (Bld) [#/Vol] on 08-25-2024 Monocytes (Bld) [#/Vol] Automated blood monocyte count 0.3-0.8 [facility] Monocytes/100 WBC Auto (Bld) on 08-25-2024 Monocytes/100 WBC (Bld) Automated monocyte % 1.7-12.0 [facility] Neutrophils Auto (Bld) [#/Vo l]on 08-25-2024 Neutrophils (Bld) [#/Vol] Neutrophils [#/volume] in Blood by Automated count High 1.4-6.5 [facility] Neutrophils/100 WBC Auto (Bl d)on 08-25-2024 Neutrophils/100 WBC (Bld) Automated neutrophil % 43.0-75.0 [facility] No Panel Informationon 08-25 Eosinophils # (Auto) 0.1 10 3/uL 0.0-0.7 [facility] Immature Granulocyte # (Auto) 0.03 10 3/uL 0.00-0.03 [facility] Platelet mean volume Auto (B ld) [Entitic vol]on 08-25-2024 Platelet mean volume (Bld) [Entitic vol] Platelet mean volume [Entitic volume] in Blood by Automated count 9.5-13.5 [facility] Platelets Auto (Bld) [#/Vol] on 08-25-2024 Platelets (Bld) [#/Vol] Platelets [#/volume] in Blood by Automated count 150-450 [facility] RBC Auto (Bld) [#/Vol]on RBC (Bld) [#/Vol] Erythrocytes [#/volu me] in Blood by Automated count Low 4.20-5.40 [facility] Urinalysis macro (dipstick) panel (U)on 08-23-2024 Bilirubin, UA Negative Negative - 4(70) +++ mg/dL [facility] Blood, UA Negative Negative - 50 Dain/mcL [facility] Clarity, UA Clear [facility] Color, UA Yellow [facility] Glucose, UA Negative Negative - 1999(110) ++++ mg/dL [facility] Interpretation and review of laboratory results Abnormal [facility] Ketones, UA Negative Negative - 160(16) ++++ mg/dL [facility] Leukocytes, UA Positive Negative - 500+++ Chaparrita/mcL [facility] Comment on above: small Nitrite, UA Negative Negative - Positive [facility] pH, UA 7 5 - 9 [facility] Protein, UA Negative Negative - 1999(20) ++++ mg/dL [facility] Spec Grav, UA 1.02 1 - 1.03 [facility] Urobilinogen, UA 0.2 0.2 - 12 mg/dL [facility] Thyroid Stimulating Hormoneo n 07-31-2024 TSH Qn 2.07 m[IU]/L Normal 0.45-5.33 [facility] Comment on above: Result Comment: PERF ORMED BY: [facility] [address] [place] [address] PATHOLOGIST SERVICE DELIVERY ANALYST MIS SCHIMDT M.D. Performed By: #### T SH3 #### [address] Thyrotropin [Units/volume] i n Serum or PlasmaOrdered By: Brain Way on 07-31-2024 TSH Qn Thyrotropin [Units/v olume] in Serum or Plasma 0.45-5.33 [facility] Urinalysis macro (dipstick) panel (U)on 07-11-2024 Bilirubin, UA Negative Negative - 4(70) +++ mg/dL [facility] [facility] Blood, UA Negative Negative - 50 Dain/mcL [facility] Clarity, UA Clear [facility] Color, UA Yellow [facility] Glucose, UA Negative Negative - 1999(110) ++++ mg/dL [facility] Interpretation and review of laboratory results Abnormal [facility] Ketones, UA Negative Negative - 160(16) ++++ mg/dL [facility] Leukocytes, UA Trace Negative - 500+++ Chaparrita/mcL [facility] Nitrite, UA Negative Negative - Positive [facility] pH, UA 6 5 - 9 [facility] Protein, UA Negative Negative - 1999(20) ++++ mg/dL [facility] Spec Grav, UA 1.01 1 - 1.03 [facility] Urobilinogen, UA 0.2 0.2 - 12 mg/dL [facility] Alpha-fetoprotein (AFP) luis urement (aiwokipu-us-bhptiw)Ordered By: Brain Way on 06-28-2024 AFP [MoM] Alpha-fetoprotein (A FP) measurement (frolewej-uw-wutnhx) . [facility] Determination of gestational ageOrdered By: Brain Way on 06-28-2024 Gestational age Assess gestational age . [facility] Estimation of maternal age-s pecific risk of Down syndrome birthOrdered By: Brain Way on 06-28-2024 Age [Time] Estimation of matern al age-specific risk of Down syndrome . [facility] Human chorionic gonadotropin (hCG) multiple of median measurementOrdered By: Brain Way on 06-28-2024 HCG [MoM] Human chorionic gonadotropin (hCG) multiple of median measurement . [facility] Insulin dependent diabetes m ellitus detectionOrdered By: Brain Way on 06-28-2024 Insulin dependent diabetes mellitus Ql Insulin dependent diabetes mellitus detection . [facility] Interpretation of serum or p lasma second trimester quad maternal screen (narrative reOrdered By: Brain Way on 06-28-2024 Second trimester quad maternal screen Mathew [Interp] Interpretation of serum or plasma second trimester quad maternal screen (narrative re . [facility] Comment on above: Interpretation:An in terpretation CANNOT be provided for this patientbecause necessary patient information was not provided (oneor more of: gestational age, weight, or patient age).Please call us with new clinical information.Recalculations are not recommended when gestational datingby LMP and ultrasound are within 10 days. No Panel InformationOrdered By: Brain Way on 06-28-2024 AFP Triple Screen Comment Comment . [facility] Comment on above: Stephanie Pinto , Ph.D., DABCCDirectorReferences: Available Upon Request.Multiples Of Median Cutoffs Abbreviation Definitions For AFP Elevations IDD- Insulin Dep DiabetesSingleton 2.5 Black 2.8 OSBR- Open Spina BifidaIDD 2.0 Twins 4.5 RiskDSR Cutoff 1:270 DSR- Down Syndrome RiskT18 Cutoff 1:100 T18- Trisomy 18For further inquiries contact [employer] [facility]at [phone].This test was developed and its performance characteristicsdetermined by [employer]. It has not been cleared or approvedby the Food and Drug Administration.Performed at: [facility] [id number] [place], [place] [id number] Director: Aubrey Moreno [facility], Phone: [phone] Alpha Fetoprotein Results Received Report . [facility] Down Syndrome Age Equivalent See interpretation. . [facility] Gestational Age Calculation Method Ultrasound . [facility] Comment on above: 18:5 on 06/12/2024 Maternal Quad Test Risk See interpretation. . [facility] Maternal Race . [facility] Multiple No . [facility] Serum or plasma ndvdy-2-thup protein measurement (mass/volume)Ordered By: Brain Way on 06-28-2024 AFP [Mass/Vol] Serum or plasma hmmrz-2-odhbahlsxhv measurement (mass/volume) . [facility] Serum or plasma inhibin A me asurement (adjusted nkukoyme-kq-jelbnt)Ordered By: Brain Way on 06-28-2024 Inhibin A adjusted [MoM] Serum or plasma inhibin A measurement (adjusted qiopjuho-vl-cownll) . [facility] Serum or plasma inhibin A me asurement (mass/volume)Ordered By: Brain Way on 06-28-2024 Inhibin A [Mass/Vol] Inhibin A [Mass/vol ume] in Serum or Plasma . [facility] Serum or plasma total combin ed intact choriogonadotropin and beta subunit measurementOrdered By: Brain Way on 06-28-2024 HCG.intact+Beta subunit Qn Serum or plasma total combined intact choriogonadotropin and beta subunit measurement . [facility] Serum or plasma unconjugated estriol (E3) measurement (adjusted myxxgsrk-zl-nrfvev)Ordered By: Brain Way on 06-28-2024 E3.unconjugated adjusted [MoM] Serum or plasma unconjugated estriol (E3) measurement (adjusted mqprzypc-zf-ivnqvo) . [facility] Serum or plasma unconjugated estriol (E3) measurement (mass/volume)Ordered By: Brain Way on 06-28-2024 E3.unconjugated [Mass/Vol] Serum or plasma unconjugated estriol (E3) measurement (mass/volume) . [facility] Thyroid Stimulating Hormoneo n 06-28-2024 TSH Qn 3.44 m[IU]/L Normal 0.45-5.33 [facility] Comment on above: Result Comment: PERF ORMED BY: [facility] [address] [place] [address] PATHOLOGIST SERVICE DELIVERY ANALYST JORDI SMITH M.D. Performed By: #### T SH3 #### [facility] [address] [place] [id number] [facility] Thyrotropin [Units/volume] i n Serum or PlasmaOrdered By: Brain Way on 06-28-2024 TSH Qn Thyrotropin [Units/v olume] in Serum or Plasma 0.45-5.33 [facility] Trisomy 21 risk determinatio n in fetusOrdered By: Brain Way on 06-28-2024 Trisomy 21 risk Qn (fetus) Trisomy 21 risk determination in fetus . [facility] US OB >= 14 weeks Fetuson US OB >= 14 weeks Fetus [facility] [place] [address] [place] [address] Ultrasound Report Signed Patient: Tawnya Herring MR#: [id number] 29 : 1995 Acct:[id number] Age/Sex: 28 / F ADM Date: 06/22/24 Loc: Room: Type: [facility] Attending Dr: Brain Way DO Ordering [...] Norton Jr. DRhonda06/22/2024 4:00 PM Dictation Location: [place] [address] Tech: Rae De Paz Transcribed By: AGUILAR 06/22/24 1600 Dictated By: Zay Norton Jr, DO 06/22/24 1552 Signed By: 06/22/24 1600 Normal [facility] Urinalysis macro (dipstick) panel (U)on 06-12-2024 Bilirubin, UA Negative Negative - 4(70) +++ mg/dL [facility] Blood, UA Negative Negative - 50 Dain/mcL [facility] Clarity, UA Clear [facility] Color, UA Yellow [facility] Glucose, UA Negative Negative - 1999(110) ++++ mg/dL [facility] Interpretation and review of laboratory results Abnormal [facility] Ketones, UA Negative Negative - 160(16) ++++ mg/dL [facility] Leukocytes, UA Positive Negative - 500+++ Chaparrita/mcL [facility] Comment on above: small Nitrite, UA Negative Negative - Positive [facility] pH, UA 6 5 - 9 [facility] Protein, UA Negative Negative - 2000(20) ++++ mg/dL [facility] Spec Grav, UA 1.025 1 - 1.03 [facility] Urobilinogen, UA 1.0 0.2 - 12 mg/dL [facility] Thyrotropin [Units/volume] i n Serum or PlasmaOrdered By: Brain Way on 05-24-2024 TSH Qn 2.42 m[IU]/L Normal 0.45-5.33 [facility] Comment on above: Result Comment: PERF ORMED BY: [place] [address] PATHOLOGIST SERVICE DELIVERY ANALYST JORDI SMITH M.D. Performed By: #### T SH3 #### [address] TSH Qn Thyrotropin [Units/v olume] in Serum or Plasma 0.45-5.33 [facility] Urinalysis macro (dipstick) panel (U)on 05-10-2024 Bilirubin, UA Negative Negative - 4(70) +++ mg/dL [facility] Blood, UA Negative Negative - 50 Dain/mcL [facility] Clarity, UA Clear [facility] Color, UA Yellow [facility] Glucose, UA Negative Negative - 1999(110) ++++ mg/dL [facility] Interpretation and review of laboratory results Normal [facility] Ketones, UA Negative Negative - 160(16) ++++ mg/dL [facility] Leukocytes, UA Negative Negative - 500+++ Chaparrita/mcL [facility] Nitrite, UA Negative Negative - Positive [facility] pH, UA 6.5 5 - 9 [facility] Protein, UA Negative Negative - 1999(20) ++++ mg/dL [facility] Spec Grav, UA 1.020 1 - 1.03 [facility] Urobilinogen, UA 1.0 0.2 - 12 mg/dL [facility] IGP,APTIMA HPV,AGE GDLNon AGE GDLN ACOG TESTING Note . [facility] Comment on above: TESTS RESULT FLAG UN ITS REF RANGE LAB Clinician Provided Cytology Information Source.............Cervix No. of containers..01 ThinPrep Vial Age Algo ACOG Mariel... -13 09 FLAG LEGEND: L-Low Normal,H-High Normal,LL-Alert Low,HH-Alert High <-Panic Low,>-Panic High,A-Abnormal,AA-Critical Abnormal Performed at: 01 =[facility] [address] [place] [address] Christelle Galan MD, IGP, RFX APTIMA HPV ASCU Note . [facility] Comment on above: TESTS RESULT FLAG UN ITS REF RANGE LAB DIAGNOSIS: 02 NEGATIVE FOR INTRAEPITHELIAL LESION OR MALIGNANCY. Specimen adequacy: 02 Satisfactory for evaluation. Endocervical and/or squamous metaplastic cells (endocervical component) are present. Performed by: 02 Vanessa Ornelas, [place] Clerk . 02 Note: Note 02 The Pap [...] <-Panic Low,>-Panic High,A-Abnormal,AA-Critical Abnormal Performed at: [address] [id number] Christelle Galan MD, Performed at: =[facility] [id number] Hospital Librarian: Christelle Galan MD, Phone: [phone] Performed at: [address] [id number] Hospital Librarian: Christelle Galan MD, Phone: [phone] SP[facility]ULA[facility]ONE C[facility]IX [facility] URETHRITIS/DISCHARGE PLUS VA GINITIS (HTRX)on 04-22-2024 ATOPOBIUM VAGINAE 0.000 [facility] ATOPOBIUM VAGINAE Not detected [facility] BVAB 2,3 (BACTERIAL VAGINOSIS ASSOCIATED BACTERIA 2, 3); MOBILUNCUS SPP 24.821 Abnormal [facility] BVAB 2,3 (BACTERIAL VAGINOSIS ASSOCIATED BACTERIA 2, 3); MOBILUNCUS SPP Detected Abnormal [facility] JANET ALBICANS, PARAPSILOSIS, TROPICALIS 0.000 [facility] JANET ALBICANS, PARAPSILOSIS, TROPICALIS Not detected [facility] JANET GLABRATA 0.000 [facility] JANET GLABRATA Not detected [facility] JANET KRUSEI 0.000 [facility] JANET KRUSEI Not detected [facility] CHLAMYDIA TRACHOMATIS 0.000 [facility] CHLAMYDIA TRACHOMATIS Not detected [facility] GARDNERELLA VAGINALIS 0.000 [facility] GARDNERELLA VAGINALIS Not detected N [facility] Interpretation and review of laboratory results Abnormal [facility] MEGASPHAERA (TYPES 1, 2) 0.000 [facility] MEGASPHAERA (TYPES 1, 2) Not detected [facility] MYCOPLASMA GENITALIUM 0.000 [facility] MYCOPLASMA GENITALIUM Not detected N [facility] NEISSERIA GONORRHOEAE 0.000 [facility] NEISSERIA GONORRHOEAE Not detected N [facility] TRICHOMONAS VAGINALIS 0.000 [facility] TRICHOMONAS VAGINALIS Not detected N [facility] Urinalysis macro (dipstick) panel (U)on 04-20-2024 Bilirubin, UA Negative Negative - 4(70) +++ mg/dL [facility] Blood, UA Positive Negative - 50 Dain/mcL [facility] Comment on above: trace-intact Clarity, UA Clear [facility] Color, UA Yellow [facility] Glucose, UA Negative Negative - 1999(110) ++++ mg/dL [facility] Interpretation and review of laboratory results Abnormal [facility] Ketones, UA Negative Negative - 160(16) ++++ mg/dL [facility] Leukocytes, UA Trace Negative - 500+++ Chaparrita/mcL [facility] Nitrite, UA Negative Negative - Positive [facility] pH, UA 6.0 5 - 9 [facility] Protein, UA Negative Negative - 1999(20) ++++ mg/dL [facility] Spec Grav, UA 1.030 1 - 1.03 [facility] Urobilinogen, UA 0.2 0.2 - 12 mg/dL [facility] CBC without diffon Hematocrit (Bld) [Volume fraction] 37.3 % [facility] Hemoglobin (Bld) [Mass/Vol] 13.3 g/dL [facility] Rbc Mcv (Fl) By Automated Count 92.1 [facility] No Panel Informationon 04-13 [facility] Rubella IGG immune statuson 04-13-2024 Rubella immune IgG 1.33 [facility] Syphilis Total(Unknown Syphi lis Status)on 04-13-2024 Syphilis Non-Reactive [facility] TBH BOX TEST SENT OUTon 03-17 BOX TEST SENT OUT 04/13/24 [facility] Drug Screen, Urineon 024 Amphetamine/Methamphe tamine Negative [facility] Barbiturate Screen Urine Negative [facility] Benzodiazepine Screen, Urine Negative [facility] Cocaine Metabolite Negative [facility] Methadone,Meconium Negative [facility] Opiate Quantitative Urine Negative [facility] Oxycodone Negative [facility] Phencyclidine Negative [facility] Thc Marijuana, Urine Negative [facility] HCG ( test) Ql (U)o n 04-07-2024 Interpretation and review of laboratory results Abnormal [facility] Preg Test, Ur Positive [facility] Urinalysis macro (dipstick) panel (U)on 04-07-2024 Bilirubin, UA Negative Negative - (70) +++ mg/dL [facility] Blood, UA Negative Negative - 50 Dain/mcL [facility] Clarity, UA Clear [facility] Color, UA Yellow [facility] Glucose, UA Negative Negative - 1999(110) ++++ mg/dL [facility] Interpretation and review of laboratory results Abnormal [facility] Ketones, UA Negative Negative - 160(16) ++++ mg/dL [facility] Leukocytes, UA Positive Negative - 500+++ Chaparrita/mcL [facility] Comment on above: small Nitrite, UA Negative Negative - Positive [facility] pH, UA 7.0 5 - 9 [facility] Protein, UA Negative Negative - 1999(20) ++++ mg/dL [facility] Spec Grav, UA 1.025 1 - 1.03 [facility] Urobilinogen, UA 0.2 0.2 - 12 mg/dL [facility] Automated basophil %Ordered By: Addi Ortega on 04-06-2024 Basophils/100 WBC (Bld) 0.2 % Normal . [facility] Comment on above: Performed By: #### P ILLAR TSH, PILLAR LIPID, PILLAR CBC, PILLAR BMP #### [address] Automated basophil countOrde red By: Addi Oretga on 04-06-2024 Basophils (Bld) [#/Vol] 0.0 10*3/uL Normal 0.0-0.2 [facility] Comment on above: Result Comment: PERF ORMED BY: [place] [address] PATHOLOGIST SERVICE DELIVERY ANALYST JORDI SMITH M.D. Performed By: #### P ILLAR TSH, PILLAR LIPID, PILLAR CBC, PILLAR BMP #### [facility] [address] [place] [address] Automated blood monocyte cou ntOrdered By: Addi Ortega on 04-06-2024 Monocytes (Bld) [#/Vol] 0.5 10*3/uL Normal 0.0-0.8 [facility] Comment on above: Performed By: #### P ILLAR TSH, PILLAR LIPID, PILLAR CBC, PILLAR BMP #### [facility] [address] [place] [address] Automated eosinophil %Ordere d By: Addi Ortega on 04-06-2024 Eosinophils/100 WBC (Bld) 0.5 % Normal . [facility] Comment on above: Performed By: #### P ILLAR TSH, PILLAR LIPID, PILLAR CBC, PILLAR BMP #### [facility] [address] Automated eosinophil countOr dered By: Addi Ortega on 04-06-2024 Eosinophils (Bld) [#/Vol] 0.0 10*3/uL Normal 0.0-0.45 [facility] Comment on above: Performed By: #### P ILLAR TSH, PILLAR LIPID, PILLAR CBC, PILLAR BMP #### [facility] [address] Automated monocyte %Ordered By: Addi Ortega on 04-06-2024 Monocytes/100 WBC (Bld) 5.6 % Normal . [facility] Comment on above: Performed By: #### P ILLAR TSH, PILLAR LIPID, PILLAR CBC, PILLAR BMP #### [facility] [address] Automated neutrophil %Ordere d By: Addi Ortega on 04-06-2024 Neutrophils/100 WBC (Bld) 64.9 % Normal . [facility] Comment on above: Performed By: #### P ILLAR TSH, PILLAR LIPID, PILLAR CBC, PILLAR BMP #### [facility] [address] Basophils Auto (Bld) [#/Vol] Ordered By: Addi Ortega on 04-06-2024 Basophils (Bld) [#/Vol] Automated basophil count 0.0-0.[address] [facility] Basophils/100 WBC Auto (Bld) Ordered By: Addi Ortega on 04-06-2024 Basophils/100 WBC (Bld) Automated basophil % . [facility] Calcium [Mass/volume] in Ser um or PlasmaOrdered By: Addi Ortega on 04-06-2024 Calcium [Mass/Vol] 8.9 mg/dL Normal 8.6-10.3 [facility] Comment on above: Performed By: #### P ILLAR TSH, PILLAR LIPID, PILLAR CBC, PILLAR BMP #### [facility] [address] [place] [address] [place] Calcium [Mass/Vol] Calcium [Mass/volume ] in Serum or Plasma 8.6-10.3 [facility] Carbon dioxide, total [Moles /volume] in Serum or PlasmaOrdered By: Addi Ortega on 04-06-2024 CO2 [Moles/Vol] 22.0 mmol/L Normal 21.0-31.0 [facility] Comment on above: Performed By: #### P ILLAR TSH, PILLAR LIPID, PILLAR CBC, PILLAR BMP #### [facility] [address] [place] [address] [place] CO2 [Moles/Vol] Carbon dioxide, tota l [Moles/volume] in Serum or Plasma 21.0-31.0 [facility] Chloride [Moles/volume] in S ghada or PlasmaOrdered By: Addi Ortega on 04-06-2024 Chloride [Moles/Vol] 106 mmol/L Normal 98-107 [facility] Comment on above: Performed By: #### P ILLAR TSH, PILLAR LIPID, PILLAR CBC, PILLAR BMP #### [facility] [address] [place] [address] [place] Chloride [Moles/Vol] Chloride [Moles/vol ume] in Serum or Plasma 98-107 [facility] Cholesterol [Mass/volume] in Serum or PlasmaOrdered By: Addi Ortega on 04-06-2024 Cholesterol [Mass/Vol] 159 mg/dL Normal 140-200 [facility] Comment on above: Chol less than 200 m g/dl low riskChol 201-239 mg/dl borderline riskChol 240 mg/dl and greater high risk Result Comment: Chol less than 200 mg/dl low risk Chol 201-239 mg/dl borderline risk Chol 240 mg/dl and greater high risk Performed By: #### P ILLAR TSH, PILLAR LIPID, PILLAR CBC, PILLAR BMP #### [facility] [address] [place] [address] [place] Cholesterol [Mass/Vol] Cholesterol [Mass/volume] in Serum or Plasma 140-200 [facility] Comment on above: Chol less than 200 m g/dl low riskChol 201-239 mg/dl borderline riskChol 240 mg/dl and greater high risk Cholesterol in HDL [Mass/vol ume] in Serum or PlasmaOrdered By: Addi Ortega on 04-06-2024 Cholesterol in HDL [Mass/Vol] Serum or plasma high density lipoprotein (HDL) cholesterol measurement 23-92 [facility] Comment on above: HDL CHOL ATP-III CLA SSIFICATION Cardiovascular RiskHDL > or equal to 60 mg/dL LOWHDL < 40 mg/dL HIGH Cholesterol in LDL Calc [Mas s/Vol]Ordered By: Addi Ortega on 04-06-2024 Cholesterol in LDL [Mass/Vol] 95 mg/dL 0-100 [facility] Comment on above: LDL ATP III CLASSIFI CATIONLDL less than 100 mg/dL OptimalLDL 100-129 mg/dL Near or above optimalLDL 130-159 mg/dL Borderline highLDL 160-189 mg/dL HighLDL greater than 189 mg/dL Very high Cholesterol in LDL [Mass/Vol] Cholesterol in LDL [Mass/volume] in Serum or Plasma by calculation 0-100 [facility] Comment on above: LDL ATP III CLASSIFI CATIONLDL less than 100 mg/dL OptimalLDL 100-129 mg/dL Near or above optimalLDL 130-159 mg/dL Borderline highLDL 160-189 mg/dL HighLDL greater than 189 mg/dL Very high Cholesterol in VLDL Calc [Ma ss/Vol]Ordered By: Addi Ortega on 04-06-2024 Cholesterol in VLDL [Mass/Vol] 15 mg/dL [facility] Cholesterol in VLDL [Mass/Vol] Cholesterol in VLDL [Mass/volume] in Serum or Plasma by calculation [facility] Creatinine [Mass/volume] in Serum or PlasmaOrdered By: Addi Ortega on 04-06-2024 Creatinine [Mass/Vol] 0.44 mg/dL Low 0.60-1.20 [facility] Comment on above: Performed By: #### P ILLAR TSH, PILLAR LIPID, PILLAR CBC, PILLAR BMP #### [address] Creatinine [Mass/Vol] Creatinine [Mass/v olume] in Serum or Plasma Low 0.60-1.20 [facility] Employee Basic Metabolic Suero nargis 04-06-2024 GFR/1.73 sq M.predicted MDRD (S/P/Bld) [Vol rate/Area] mL/min/{1.73_m2} Normal [facility] Comment on above: Performed By: #### P ILLAR TSH, PILLAR LIPID, PILLAR CBC, PILLAR BMP #### [facility] [address] Employee Complete Blood Coun ton 04-06-2024 Mean Corpuscular HGB Conc 35.4 g/dL High 32.0-35.0 [facility] Comment on above: Performed By: #### P ILLAR TSH, PILLAR LIPID, PILLAR CBC, PILLAR BMP #### [facility] [address] NRBC% 0.0 /100{WBC} Normal 0-0.5 [facility] Comment on above: Performed By: #### P ILLAR TSH, PILLAR LIPID, PILLAR CBC, PILLAR BMP #### [facility] [address] Employee Lipid Profileon LDL Cholesterol,Calculate d 95 mg/dL Normal 0-100 [facility] Comment on above: Result Comment: LDL ATP III CLASSIFICATION LDL less than 100 mg/dL Optimal LDL 100-129 mg/dL Near or above optimal LDL 130-159 mg/dL Borderline high LDL 160-189 mg/dL High LDL greater than 189 mg/dL Very high Performed By: #### P ILLAR TSH, PILLAR LIPID, PILLAR CBC, PILLAR BMP #### [facility] [address] Triglyceride w/Reflex 79 mg/dL Normal 0-149 [facility] Comment on above: Result Comment: TRIG ATP III CLASSIFICATION TRIG less than 150 mg/dL Normal TRIG 150-199 mg/dL Borderline high TRIG 200-500 mg/dL High TRIG greater than 500 mg/dL Very high Standard traceable to the Center for Disease Conrtrol and Prevention (CDC) test method. Performed By: #### P ILLAR TSH, PILLAR LIPID, PILLAR CBC, PILLAR BMP #### [facility] [address] VLDL CHOLESTEROL 15 mg/dL Normal [facility] Comment on above: Performed By: #### P ILLAR TSH, PILLAR LIPID, PILLAR CBC, PILLAR BMP #### [facility] [address] Employee Thyroid Stim Hormon gokul 04-06-2024 Employee Thyroid Stim Hormone 2.72 u[iU]/mL Normal 0.45-5.33 [facility] Comment on above: Result Comment: PERF ORMED BY: [place] [address] PATHOLOGIST SERVICE DELIVERY ANALYST JORDI SMITH M.D. Performed By: #### P ILLAR TSH, PILLAR LIPID, PILLAR CBC, PILLAR BMP #### [address] Eosinophils Auto (Bld) [#/Vo l]Ordered By: Addi Ortega on 04-06-2024 Eosinophils (Bld) [#/Vol] Automated eosinophil count 0.0-0.45 [facility] Eosinophils/100 WBC Auto (Bl d)Ordered By: Addi Ortega on 04-06-2024 Eosinophils/100 WBC (Bld) Automated eosinophil % . [facility] Erythrocyte distribution wid th Auto (RBC) [Ratio]Ordered By: Addi Ortega on 04-06-2024 Erythrocyte distribution width (RBC) [Ratio] Erythrocyte distribution width [Ratio] by Automated count 11.9-15.3 [facility] Erythrocyte distribution wid th [Ratio] by Automated countOrdered By: Addi Ortega on 04-06-2024 Erythrocyte distribution width (RBC) [Ratio] 12.7 % Normal 11.9-15.3 [facility] Comment on above: Performed By: #### P ILLAR TSH, PILLAR LIPID, PILLAR CBC, PILLAR BMP #### [facility] [address] [place] [address] Erythrocytes [#/volume] in B lood by Automated countOrdered By: Addi Ortega on 04-06-2024 RBC (Bld) [#/Vol] 4.04 10*6/uL Normal 3.60-5.00 [facility] Comment on above: Performed By: #### P ILLAR TSH, PILLAR LIPID, PILLAR CBC, PILLAR BMP #### [facility] [address] [place] [address] [place] Glucose [Mass/volume] in Ser um or PlasmaOrdered By: Addi Ortega on 04-06-2024 Glucose [Mass/Vol] 82 mg/dL Normal 70-100 [facility] Comment on above: Performed By: #### P ILLAR TSH, PILLAR LIPID, PILLAR CBC, PILLAR BMP #### [facility] [address] [place] [address] [place] Glucose [Mass/Vol] Glucose [Mass/volume ] in Serum or Plasma 70-100 [facility] Hematocrit Auto (Bld) [Volum e fraction]Ordered By: Addi Ortega on 04-06-2024 Hematocrit (Bld) [Volume fraction] Hematocrit [Volume Fraction] of Blood by Automated count 34.0-46.4 [facility] Hematocrit [Volume Fraction] of Blood by Automated countOrdered By: Addi Ortega on 04-06-2024 Hematocrit (Bld) [Volume fraction] 37.6 % Normal 34.0-46.4 [facility] Comment on above: Performed By: #### P ILLAR TSH, PILLAR LIPID, PILLAR CBC, PILLAR BMP #### [facility] [address] [place] [address] [place] Hemoglobin [Mass/volume] in BloodOrdered By: Addi Ortega on 04-06-2024 Hemoglobin (Bld) [Mass/Vol] 13.3 g/dL Normal 11.8-15.4 [facility] Comment on above: Performed By: #### P ILLAR TSH, PILLAR LIPID, PILLAR CBC, PILLAR BMP #### [facility] [address] [place] [address] [place] Hemoglobin (Bld) [Mass/Vol] Hemoglobin [Mass/volume] in Blood 11.8-15.4 [facility] Leukocytes [#/volume] correc hamilton for nucleated erythrocytes in Blood by Automated counOrdered By: Addi Ortega on 04-06-2024 WBC corrected for nucl RBC Auto (Bld) [#/Vol] 8.9 10*3/uL 3.8-11.6 [facility] WBC corrected for nucl RBC Auto (Bld) [#/Vol] Leukocytes [#/volume] corrected for nucleated erythrocytes in Blood by Automated coun 3.8-11.6 [facility] Leukocytes [#/volume] in Blo od by Automated countOrdered By: Addi Ortega on 04-06-2024 WBC (Bld) [#/Vol] 8.9 10*3/uL Normal 3.8-11.6 [facility] Comment on above: Performed By: #### P ILLAR TSH, PILLAR LIPID, PILLAR CBC, PILLAR BMP #### [facility] [address] [place] [address] Lymphocytes Auto (Bld) [#/Vo l]Ordered By: Addi Ortega on 04-06-2024 Lymphocytes (Bld) [#/Vol] Lymphocytes [#/volume] in Blood by Automated count 1.00-4.8 [facility] Lymphocytes [#/volume] in Bl ood by Automated countOrdered By: Addi Ortega on 04-06-2024 Lymphocytes (Bld) [#/Vol] 2.5 10*3/uL Normal 1.00-4.8 [facility] Comment on above: Performed By: #### P ILLAR TSH, PILLAR LIPID, PILLAR CBC, PILLAR BMP #### [facility] [address] [place] [address] [place] Lymphocytes/100 WBC Auto (Bl d)Ordered By: Addi Ortega on 04-06-2024 Lymphocytes/100 WBC (Bld) Lymphocytes/100 leukocytes in Blood by Automated count . [facility] Lymphocytes/100 leukocytes i n Blood by Automated countOrdered By: Addi Ortega on 04-06-2024 Lymphocytes/100 WBC (Bld) 28.8 % Normal . [facility] Comment on above: Performed By: #### P ILLAR TSH, PILLAR LIPID, PILLAR CBC, PILLAR BMP #### [facility] [address] MCH Auto (RBC) [Entitic mass ]Ordered By: Addi Ortega on 04-06-2024 MCH (RBC) [Entitic mass] MCH [Entitic mass] by Automated count 24.7-34.3 [facility] MCH [Entitic mass] by Automa hamilton countOrdered By: Addi Ortega on 04-06-2024 MCH (RBC) [Entitic mass] 32.9 pg Normal 24.7-34.3 [facility] Comment on above: Performed By: #### P ILLAR TSH, PILLAR LIPID, PILLAR CBC, PILLAR BMP #### [facility] [address] [place] [address] MCHC Auto (RBC) [Mass/Vol]Or dered By: Addi Ortega on 04-06-2024 MCHC (RBC) [Mass/Vol] 35.4 g/dL High 32.0-35.0 [facility] MCHC (RBC) [Mass/Vol] MCHC [Mass/volume] by Automated count High 32.0-35.0 [facility] MCV Auto (RBC) [Entitic vol] Ordered By: Addi Ortega on 04-06-2024 MCV (RBC) [Entitic vol] MCV [Entitic volume] by Automated count 80-100 [facility] MCV [Entitic volume] by Auto mated countOrdered By: Addi Ortega on 04-06-2024 MCV (RBC) [Entitic vol] 93.2 fL Normal 80-100 [facility] Comment on above: Performed By: #### P ILLAR TSH, PILLAR LIPID, PILLAR CBC, PILLAR BMP #### [facility] [address] [place] [address] Monocytes Auto (Bld) [#/Vol] Ordered By: Addi Ortega on 04-06-2024 Monocytes (Bld) [#/Vol] Automated blood monocyte count 0.0-0.8 [facility] Monocytes/100 WBC Auto (Bld) Ordered By: Addi Ortega on 04-06-2024 Monocytes/100 WBC (Bld) Automated monocyte % . [facility] Neutrophils Auto (Bld) [#/Vo l]Ordered By: Addi Ortega on 04-06-2024 Neutrophils (Bld) [#/Vol] Neutrophils [#/volume] in Blood by Automated count 1.8-7.7 [facility] Neutrophils [#/volume] in Bl ood by Automated countOrdered By: Addi Ortega on 04-06-2024 Neutrophils (Bld) [#/Vol] 5.8 10*3/uL Normal 1.8-7.7 [facility] Comment on above: Performed By: #### P ILLAR TSH, PILLAR LIPID, PILLAR CBC, PILLAR BMP #### [facility] [address] [place] [address] [place] Neutrophils/100 WBC Auto (Bl d)Ordered By: Addi Ortega on 04-06-2024 Neutrophils/100 WBC (Bld) Automated neutrophil % . [facility] No Panel InformationOrdered By: Addi Ortega on 04-06-2024 Estimated GFR (CKD-EPI) > 60.0 mL/Min [facility] Creatinine Clearance (Chem N/A [facility] Nucleated erythrocytes [Pres ence] in Blood by Automated countOrdered By: Addi Ortega on 04-06-2024 Nucleated RBC Auto Ql (Bld) 0.0 /100{WBC} 0-0.5 [facility] Nucleated RBC Auto Ql (Bld) Nucleated erythrocytes [Presence] in Blood by Automated count 0-0.5 [facility] Platelet mean volume Auto (B ld) [Entitic vol]Ordered By: Addi Ortega on 04-06-2024 Platelet mean volume (Bld) [Entitic vol] Platelet mean volume [Entitic volume] in Blood by Automated count 6.3-10.7 [facility] Platelet mean volume [Entiti c volume] in Blood by Automated countOrdered By: Addi Ortega on 04-06-2024 Platelet mean volume (Bld) [Entitic vol] 8.8 fL Normal 6.3-10.7 [facility] Comment on above: Performed By: #### P ILLAR TSH, PILLAR LIPID, PILLAR CBC, PILLAR BMP #### [facility] [address] [place] [address] [place] Platelets Auto (Bld) [#/Vol] Ordered By: Addi Ortega on 04-06-2024 Platelets (Bld) [#/Vol] Platelets [#/volume] in Blood by Automated count 150-450 [facility] Platelets [#/volume] in Bloo d by Automated countOrdered By: Addi Ortega on 04-06-2024 Platelets (Bld) [#/Vol] 274 10*3/uL Normal 150-450 [facility] Comment on above: Performed By: #### P ILLAR TSH, PILLAR LIPID, PILLAR CBC, PILLAR BMP #### [facility] [address] [place] [address] [place] Potassium [Moles/volume] in Serum or PlasmaOrdered By: Addi Ortega on 04-06-2024 Potassium [Moles/Vol] 4.0 mmol/L Normal 3.5-5.1 [facility] Comment on above: Performed By: #### P ILLAR TSH, PILLAR LIPID, PILLAR CBC, PILLAR BMP #### [facility] [address] [place] [address] [place] Potassium [Moles/Vol] Potassium [Moles/v olume] in Serum or Plasma 3.5-5.1 [facility] RBC Auto (Bld) [#/Vol]Ordere d By: Addi Ortega on 04-06-2024 RBC (Bld) [#/Vol] Erythrocytes [#/volu me] in Blood by Automated count 3.60-5.00 [facility] Serum or plasma anion gap de terminationOrdered By: Addi Ortega on 04-06-2024 Anion gap [Moles/Vol] 11.0 mmol/L Normal 6.0-15.0 [facility] Comment on above: Performed By: #### P ILLAR TSH, PILLAR LIPID, PILLAR CBC, PILLAR BMP #### [facility] [address] [place] [id number] [place] Anion gap [Moles/Vol] Serum or plasma an ion gap determination 6.0-15.0 [facility] Serum or plasma high density lipoprotein (HDL) cholesterol measurementOrdered By: Addi Ortega on 04-06-2024 Cholesterol in HDL [Mass/Vol] 48 mg/dL Normal 23-92 [facility] Comment on above: HDL CHOL ATP-III CLA SSIFICATION Cardiovascular RiskHDL > or equal to 60 mg/dL LOWHDL < 40 mg/dL HIGH Result Comment: HDL CHOL ATP-III CLASSIFICATION Cardiovascular Risk HDL > or equal to 60 mg/dL LOW HDL < 40 mg/dL HIGH Performed By: #### P ILLAR TSH, PILLAR LIPID, PILLAR CBC, PILLAR BMP #### [facility] [address] Serum or plasma total choles terol/high density lipoprotein (HDL) cholesterol mass ratOrdered By: Addi Ortega on 04-06-2024 Cholesterol.total/Cho lesterol in HDL [Mass ratio] 3.3 {ratio} Normal <5.0 [facility] Comment on above: Performed By: #### P ILLAR TSH, PILLAR LIPID, PILLAR CBC, PILLAR BMP #### [facility] [address] Cholesterol.total/Cho lesterol in HDL [Mass ratio] Serum or plasma total cholesterol/high density lipoprotein (HDL) cholesterol mass rat <5.0 [facility] Sodium [Moles/volume] in Ser um or PlasmaOrdered By: Addi Ortega on 04-06-2024 Sodium [Moles/Vol] 135 mmol/L Low 136-145 [facility] Comment on above: Performed By: #### P ILLAR TSH, PILLAR LIPID, PILLAR CBC, PILLAR BMP #### [facility] [address] Sodium [Moles/Vol] Sodium [Moles/volume ] in Serum or Plasma Low 136-145 [facility] Thyrotropin [Units/volume] i n Serum or PlasmaOrdered By: Addi Ortega on 04-06-2024 TSH Qn 2.72 m[IU]/L 0.45-5.33 [facility] TSH Qn Thyrotropin [Units/v olume] in Serum or Plasma 0.45-5.33 [facility] Triglyceride [Mass/volume] i n Serum or PlasmaOrdered By: Addi Ortega on 04-06-2024 Triglyceride [Mass/Vol] 79 mg/dL 0-149 [facility] Comment on above: TRIG ATP III CLASSIF ICATIONTRIG less than 150 mg/dL NormalTRIG 150-199 mg/dL Borderline highTRIG 200-500 mg/dL High TRIG greater than 500 mg/dL Very highStandard traceable to the Center for Disease Conrtrol and Prevention (CDC) test method. Triglyceride [Mass/Vol] Triglyceride [Mass/volume] in Serum or Plasma 0-149 [facility] Comment on above: TRIG ATP III CLASSIF ICATIONTRIG less than 150 mg/dL NormalTRIG 150-199 mg/dL Borderline highTRIG 200-500 mg/dL High TRIG greater than 500 mg/dL Very highStandard traceable to the Center for Disease Conrtrol and Prevention (CDC) test method. Urea nitrogen [Mass/volume] in Serum or PlasmaOrdered By: Addi Ortega on 04-06-2024 Urea nitrogen [Mass/Vol] 7 mg/dL Normal 03-09 [facility] Comment on above: Performed By: #### P ILLAR TSH, PILLAR LIPID, PILLAR CBC, PILLAR BMP #### [address] Urea nitrogen [Mass/Vol] Urea nitrogen [Mass/volume] in Serum or Plasma 03-09 [facility] WBC Auto (Bld) [#/Vol]Ordere d By: Addi Ortega on 04-06-2024 WBC (Bld) [#/Vol] Leukocytes [#/volume ] in Blood by Automated count 3.8-11.6 [facility] ED Note-Physicianon 03-20-20 ED Note-Physician ED [...] and Complexity of Problems Differential Diagnosis: [] [facility] Data External documents reviewed: [] My [...] with the patient. 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 Discussed return precautions. [...] Nath In 3 days 03/21/[address] [place] [address]- Business (1) Additional Instructions: DARWIN JONES In 3 days [address] [facility] [address] [place] [address]- [phone] Business (1) Additional Instructions: Patient Education Threatened Miscarriage Subchorionic Hematoma Attestation Patient seen and evaluated by the physician classroom assistant. Attending physician was present in the emergency department and supervised care. This visit was performed by both the physician and an APC. I performed all aspects of the MDM as documented. This report was transcribed using voice recognition software. Every effort was made to ensure accuracy, however, inadvertently computerized maternity floor supervisor mistakes may be present. Appropriate healthc (more content not included)... Normal [facility] Comment on above: Result Comment: Elec tronically Signed By: Sunny BECKHAM, Hector Rodriguze\.br\Date and Time Signed: 03/18/24 12:11 EDT\.br\Electronically Co-Signed By: Toan Lake DO\.br\Date and Time Co-Signed: 03/20/24 07:17 EDT ABO/Rhon 03-18-2024 ABO/Rh Negative Invalid Interpretation Code [facility] Comment on above: Performed By: #### 2 [id number] #### [facility] [address] [place] [address] BLOOD BANKOrdered By: Nikky Brennan on 03-18-2024 ABO/Rh Interp Negative Invalid Interpretation Code [facility] BB Subsection BMPon 03-18-2024 Anion gap [Moles/Vol] 12 mmol/L Normal 6-16 [facility] Comment on above: Performed By: #### 2 [id number] #### [facility] [address] [place] [address] Calcium [Mass/Vol] 9.2 mg/dL Normal 8.9-11.1 [facility] Comment on above: Performed By: #### 2 [id number] #### [facility] [address] [place] [address] Chloride [Moles/Vol] 105 mmol/L Normal 101-111 [facility] Comment on above: Performed By: #### 2 [id number] #### [facility] [address] [place] [address] CO2 [Moles/Vol] 23 mmol/L Normal 21-31 [facility] Comment on above: Performed By: #### 2 [id number] #### [facility] [address] [place] [address] Creatinine [Mass/Vol] 0.5 mg/dL Normal 0.5-1.3 [facility] Comment on above: Performed By: #### 2 [id number] #### [facility] [address] [place] [address] Glucose [Mass/Vol] 92 mg/dL Normal 55-199 [facility] Comment on above: Performed By: #### 2 [id number] #### [facility] [address] [place] [address] Potassium [Moles/Vol] 3.8 mmol/L Normal 3.5-5.3 [facility] Comment on above: Performed By: #### 2 [id number] #### [facility] [address] [place] [address] Sodium [Moles/Vol] 136 mmol/L Normal 135-145 [facility] Comment on above: Performed By: #### 2 [id number] #### [facility] [address] [place] [address] Urea nitrogen [Mass/Vol] 9 mg/dL Normal 5-21 [facility] Comment on above: Performed By: #### 2 [id number] #### [facility] [address] [place] [address] Urea nitrogen/Creatinine [Mass ratio] 18 No Units Normal 10-20 [facility] Comment on above: Performed By: #### 2 [id number] #### [facility] [address] [place] [address] BhCG Quanton 03-18-2024 [place] [address] m[IU]/mL High 1-3 [facility] Comment on above: Result Comment: 'F N ON < 1 - 3' ' 0.2 - 1 WEEK = 5 TO 50' ' 1 - 2 WEEKS = 50 - 500' ' 2 - 3 WEEKS = 100 - 5000' ' 3 - 4 WEEKS = 500 - 26698' ' 4 - 5 WEEKS = 1000 - 52381' ' 5 - 6 WEEKS = 40590 - 541994' ' 6 - 8 WEEKS = 43180 - 556465' ' 8 - 12 WEEKS = 94853 - 211957' Performed By: #### 2 [id number] #### [facility] [address] [place] [address] CBC w/ Auto Diffon 4 Basophils/100 WBC (Bld) 0.6 % Normal 0.0-2.0 [facility] Comment on above: Performed By: #### 2 [id number] #### [facility] [address] [place] [address] Basophils/Leukocytes Auto (Bld) [Pure # fraction] 0.0 E9/L Normal 0.0-0.2 [facility] Comment on above: Performed By: #### 2 [id number] #### [facility] [address] [place] [address] Eosinophils (Bld) [#/Vol] 0.0 E9/L Normal 0.0-0.5 [facility] Comment on above: Performed By: #### 2 [id number] #### [facility] [address] [place] [address] Eosinophils/100 WBC (Bld) 0.5 % Normal 0.0-8.0 [facility] Comment on above: Performed By: #### 2 [id number] #### [facility] [address] [place] [address] Erythrocyte distribution width (RBC) [Ratio] 12.5 % Normal 10.9-14.2 [facility] Comment on above: Performed By: #### 2 [id number] #### [facility] [address] [place] [address] Hematocrit (Bld) [Volume fraction] 40.2 % Normal 34.0-46.0 [facility] Comment on above: Performed By: #### 2 [id number] #### [facility] [address] [place] [address] Hemoglobin (Bld) [Mass/Vol] 13.8 g/dL Normal 12.0-16.0 [facility] Comment on above: Performed By: #### 2 [id number] #### [facility] [address] [place] [address] Lymphocytes (Bld) [#/Vol] 2.4 E9/L Normal 1.0-4.0 [facility] Comment on above: Performed By: #### 2 [id number] #### [facility] [address] [place] [address] Lymphocytes/100 WBC (Bld) 28.4 % Normal 14.0-50.0 [facility] Comment on above: Performed By: #### 2 [id number] #### [facility] [address] [place] [address] MCH (RBC) [Entitic mass] 32.3 pg Normal 27.0-34.0 [facility] Comment on above: Performed By: #### 2 [id number] #### [facility] [address] [place] [address] MCHC (RBC) [Mass/Vol] 34.3 g/dL Normal 31.4-36.0 [facility] Comment on above: Performed By: #### 2 [id number] #### [facility] [address] [place] [address] MCV (RBC) [Entitic vol] 94.2 fL Normal 80.0-100.0 [facility] Comment on above: Performed By: #### 2 [id number] #### [facility] [address] [place] [address] Monocytes (Bld) [#/Vol] 0.4 E9/L Normal 0.2-1.0 [facility] Comment on above: Performed By: #### 2 [id number] #### [facility] [address] [place] [address] Neutrophils (Bld) [#/Vol] 5.4 E9/L Normal 2.0-7.5 [facility] Comment on above: Performed By: #### 2 [id number] #### [facility] [address] [place] [address] Neutrophils/100 WBC (Bld) 65.4 % Normal 36.0-75.0 [facility] Comment on above: Performed By: #### 2 [id number] #### [facility] [address] [place] [address] Platelet mean volume (Bld) [Entitic vol] 8.5 fL Normal 6.4-10.8 [facility] Comment on above: Performed By: #### 2 [id number] #### [facility] [address] [place] [address] Platelets (Bld) [#/Vol] 249.0 E9/L Normal 150.0-500. 0 [facility] Comment on above: Performed By: #### 2 [id number] #### [facility] [address] [place] [address] RBC (Bld) [#/Vol] 4.3 E12/L Normal 4.3-5.9 [facility] Comment on above: Performed By: #### 2 [id number] #### [facility] [address] [place] [address] WBC corrected for nucl RBC Auto (Bld) [#/Vol] 8.3 E9/L Normal 4.0-11.0 [facility] Comment on above: Performed By: #### 2 [id number] #### [facility] [address] [place] [address] CHEMISTRYOrdered By: SYSTEM SYSTEM on 03-18-2024 Anion [...] 199 mg/[place] [address] m[IU]/mL High 1 - 3 mIU/mL [facility] Comment on above: Result Comment: 'F N ON < 1 - 3' ' 0.2 - 1 WEEK = 5 TO 50' ' 1 - 2 WEEKS = 50 - 500' ' 2 - 3 WEEKS = 100 - 5000' ' 3 - 4 WEEKS = 500 - 85981' ' 4 - 5 WEEKS = 1000 - 35009' ' 5 - 6 WEEKS = 06902 - 866645' ' 6 - 8 WEEKS = 20806 - 125317' ' 8 - 12 WEEKS = 51845 - 609711' Potassium [Moles/Vol] 3.8 mmol/L Normal 3.5 - 5.3 mmol/L [facility] Sodium [Moles/Vol] 136 mmol/L Normal 135 - 145 mmol/L [facility] Urea nitrogen [Mass/Vol] 9 mg/dL Normal 5 - 21 mg/dL [facility] Urea nitrogen/Creatinine [Mass ratio] 18 mg/mg Normal 10 - 20 [facility] ED Clinical Summaryon 2023 ED Clinical Summary ED Clinical Summary [place] [id number] ED Clinical Summary Person Information Name: TAWNYA HERRING [facility] Age: 28 Years : 1995 Sex: Female Language: Nepalese PCP: DARWIN JONES CNP Marital Status: Single Phone: [phone] Visit Id: Visit Reason: Vaginal bleeding - [...] 03/18/2024 12:15:02 03/18/2024 12:15:02 03/18/2024 12:15:02 ADDRESS: [address] [place] [phone] PHYS DOC NOTES: MEDICAL INFORMATION: Prescriptions Given: Medications to Continue with No Changes Other Medications citalopram (CeleXA 20 mg Tab) 1 Tablets By Mouth every day. PATIENT EDUCATION INFORMATION: Instructions: Threatened Miscarriage; Subchorionic Hematoma Follow up: With: Address: When: Rogelio Nath [address], [address], [place] [address] Business (1) In 3 days 03/21/2024 With: Address: When: DARWIN JONES [address] [facility] [address] [place] [phone] Business (1) In 3 days DIAGNOSIS: Subchorionic bleed; Threatened Normal [facility] ED Patient Summaryon 024 ED Patient Summary ED Patient Summary [address] [address] Patient Discharge Instructions Person Information Name: TAWNYA HERRING Age: 28 Years Arrival Date: 03/18/2024 08:06:19 Discharge Diagnosis: Subchorionic bleed; Threatened Primary Care Physician: DARWIN JONES CNP Provider Information Primary Provider: Toan Lake DO Advanced Code Number Stamper:None The exam and treatment you received in the Emergency Department were for an urgent problem and are not intended as complete care. It is important that you follow up with a doctor, nurse practitioner, or physician?s classroom assistant for ongoing care. If your symptoms [...] When: Rogelio [address], [place] [address] Business (1) In 3 days 03/21/2024 With: Address: When: DARWIN JONES [address] [facility] [place] [phone] [email or web address] (1) In 3 days In the event that this physician does not participate in your insurance network, please consult with your insurance company to find a nearby participating provider. Patient Education Materials: Threatened Miscarriage; Subchorionic Hematoma A MESSAGE TO ALL PATIENTS REGARDING OPIOIDS PRESCRIPTION OPIOIDS: WHAT YOU NEED TO KNOW Prescription opioids can be used to help relieve bszmtiss-ay-vhcmdh pain and are often prescribed following a [...] you be (more content not included)... Normal [facility] HEMATOLOGYOrdered By: SYSTEM SYSTEM on [...] 24 Bilirubin Ql (U) Negative Normal Negative [facility] Comment on above: Performed By: #### 4 [id number] #### [facility] [address] [place] [address] Clarity (U) Clear Normal Clear [facility] Comment on above: Performed By: #### 4 [id number] #### [facility] [address] [place] [address] Color (U) Yellow Normal Yellow [facility] Comment on above: Result Comment: Micr oscopic readings are only performed on those samples that meet specific criteria set forth by [facility]. Performed By: #### 4 [id number] #### [facility] [address] [place] [address] Epithelial cells.squamous Auto (Urine sed) [#/Area] 0-2 Invalid Interpretation Code [facility] Comment on above: Performed By: #### 4 [id number] #### [facility] [address] [place] [address] Glucose Ql (U) Negative Normal Negative [facility] Comment on above: Performed By: #### 4 [id number] #### [facility] [address] [place] [address] Hemoglobin Auto test strip (U) [Mass/Vol] 3+ mg/dL Abnormal Negative [facility] Comment on above: Performed By: #### 4 [id number] #### [facility] [address] [place] [address] Ketones Auto test strip Ql (U) Negative Normal Negative [facility] Comment on above: Performed By: #### 4 [id number] #### [facility] [address] [place] [address] Leukocyte esterase Auto test strip Ql (U) 25 Chaparrita/uL Normal Negative [facility] Comment on above: Performed By: #### 4 [id number] #### [facility] [address] [place] [address] Mucus Auto Ql (U) Trace Normal Negative [facility] Comment on above: Performed By: #### 4 [id number] #### [facility] [address] [place] [address] Nitrite Auto test strip Ql (U) Negative Normal Negative [facility] Comment on above: Performed By: #### 4 [id number] #### [facility] [address] [place] [address] pH (U) 7.5 [pH] Invalid Interpretation Code 5.0-9.0 [facility] Comment on above: Performed By: #### 4 [id number] #### [facility] [address] [place] [address] Protein Ql (U) Trace Abnormal Negative [facility] Comment on above: Performed By: #### 4 [id number] #### [facility] [address] [place] [address] RBC Ql (U) 31-75 Abnormal 0-3 [facility] Comment on above: Performed By: #### 4 [id number] #### [facility] [address] [place], [place] [id number] Specific gravity (U) [Rel density] 1.023 Invalid Interpretation Code 1.005-1.03 0 [facility] Comment on above: Performed By: #### 4 [id number] #### [facility] [address] [place], [place] [id number] Urobilinogen (U) [Mass/Vol] Negative Normal Negative [facility] Comment on above: Performed By: #### 4 [id number] #### [facility] [address] [place] [address] WBC Auto (Urine sed) [#/Area] 0-5 Normal 0-5 [facility] Comment on above: Performed By: #### 4 [id number] #### [facility] [address] [place] [address] Type of Urine collection method Clean Catch Normal [facility] Comment on above: Performed By: #### 4 [id number] #### [facility] [address] [place] [address] URINALYSISOrdered By: SYSTEM SYSTEM on 03-18-2024 Bilirubin Ql (U) Negative Normal Negativemg /dL [facility] UA Auto SS Clarity (U) Clear (03/18/24 8:17 AM) Normal Clear [facility] UA Auto SS Color (U) Yellow 1 (03/18/24 8:17 AM) Normal Yellow [facility] UA Auto SS Comment on above: Interpretive Data: M icroscopic readings are only performed on those samples that meet specific criteria set forth by [facility]. Epithelial cells.squamous Auto (Urine sed) [#/Area] 0-2 graded/HPF Invalid Interpretation Code [facility] UA Auto SS Glucose Ql (U) Negative [...] strip Ql (U) Negative Normal Negativemg /dL [facility] UA Auto SS pH (U) 7.5 *NA* (03/18/24 8:17 AM) Invalid Interpretation Code 5.0 - 9.0 [facility] UA Auto SS Protein Ql (U) Trace mg/dL Invalid Interpretation Code Negativemg /dL [facility] UA Auto SS RBC Ql (U) 31-75 graded/HPF Invalid Interpretation Code 0-3graded/ HPF [facility] UA Auto SS Specific gravity (U) [Rel density] 1.023 *NA* (03/18/24 8:17 AM) Invalid Interpretation Code 1.005 - 1.030 [facility] UA Auto SS Urobilinogen (U) [Mass/Vol] Negative Normal Negativemg /dL [facility] UA Auto SS WBC Auto (Urine sed) [#/Area] 0-5 graded/HPF Normal 0-5graded/ HPF FT UA Auto SS URINALYSISOrdered By: Hector quiroga on 03-18-2024 UA Spec Desc Clean Catch (03/18/24 8:17 AM) Normal [facility] UA Auto SS 1st Trimesteron 03-18-2024 US [...] intrauterine , with heart rate 125 bpm. [place]-rump length 3.22 mm. Mean sac diameter 1.74 [...] Transabdominal Ultrasound Performed Transvaginal Ultrasound Performed Normal [facility] US Transvaginalon 03-18-2024 US Transvaginal Exam Date/Time: 03/18/2024 11:41 EDT Reason for Exam: Vaginal bleeding Report Please review ultrasound pelvis for ultrasound transvaginal report. Ordering Provider: Hector Correa FINAL REPORT Dictated: 03/18/2024 12:06 pm Luis Alfredo Bunch MD Signed (Electronic Signature): 03/18/2024 12:06 pm Signed by: Luis Alfredo Bunch MD Transcribed by: EDWIN Technologist: MARCOS Normal [facility] eGFRon 03-18-2024 eGFR 131 mL/min/1.73 m2 Normal >=59 [facility] Comment on above: Order Comment: Order added by Discern Expert. Performed By: #### 1 [id number] #### [facility] [address] [place] [address] Progesteroneon 02-24-2024 Progesterone 9.9 ng/mL Normal . [facility] Comment on above: Result Comment: Foll icular phase 0.1 - 0.9 Luteal phase 1.8 - 23.9 Ovulation phase 0.1 - 12.0 First trimester 11.0 - 44.3 Second trimester 25.4 - 83.3 Third trimester 58.7 - 214.0 Postmenopausal 0.0 - 0.1 Performed at: [address] [id number] Hospital Librarian: Alexis Ashton PhD, Phone: [phone] PERFORMED BY: [place] [address] [place] [address] PATHOLOGIST SERVICE DELIVERY ANALYST JORDI SMITH M.D. Performed By: #### P ANTHONY ####[facility] , Serum or plasma progesterone measurement (mass/volume)Ordered By: Brain Way on 02-24-2024 Progesterone [Mass/Vol] 9.9 ng/mL . [facility] Comment on above: Follicular phase 0.1 - 0.9 Luteal phase 1.8 - 23.9 Ovulation phase 0.1 - 12.0 First trimester 11.0 - 44.3 Second trimester 25.4 - 83.3 Third trimester 58.7 - 214.0 Postmenopausal 0.0 - 0.1Performed at: [address] [id number] Director: Alexis Ashton PhD, Phone: [phone] Progesteroneon 01-24-2024 Progesterone 8.5 ng/mL Normal . [facility] Comment on above: Result Comment: Foll icular phase 0.1 - 0.9 Luteal phase 1.8 - 23.9 Ovulation phase 0.1 - 12.0 First trimester 11.0 - 44.3 Second trimester 25.4 - 83.3 Third trimester 58.7 - 214.0 Postmenopausal 0.0 - 0.1 Performed at: [address] [id number] Hospital Librarian: Alexis Ashton PhD, Phone: [phone] PERFORMED BY: [place] [id number] [address] [place] [address] PATHOLOGIST SERVICE DELIVERY ANALYST JORDI SMITH M.D. Performed By: #### P ANTHONY ####[facility] , Serum or plasma progesterone measurement (mass/volume)Ordered By: Brain Way on 01-24-2024 Progesterone [Mass/Vol] 8.5 ng/mL . [facility] Comment on above: Follicular phase 0.1 - 0.9 Luteal phase 1.8 - 23.9 Ovulation phase 0.1 - 12.0 First trimester 11.0 - 44.3 Second trimester 25.4 - 83.3 Third trimester 58.7 - 214.0 Postmenopausal 0.0 - 0.1Performed at: [address] [id number] Director: Alexis Ashton PhD, Phone: [phone] Progesteroneon 12-27-2023 Progesterone 13.3 ng/mL Normal . [facility] Comment on above: Result Comment: Foll icular phase 0.1 - 0.9 Luteal phase 1.8 - 23.9 Ovulation phase 0.1 - 12.0 First trimester 11.0 - 44.3 Second trimester 25.4 - 83.3 Third trimester 58.7 - 214.0 Postmenopausal 0.0 - 0.1 Performed at: [address] [id number] Hospital Librarian: Alexis Ashton PhD, Phone: [phone] PERFORMED BY: [facility] [address] [place] [address] PATHOLOGIST SERVICE DELIVERY ANALYST JORDI SMITH M.D. Performed By: #### P ANTHONY ####[facility] , Serum or plasma progesterone measurement (mass/volume)Ordered By: Brain Way on 12-27-2023 Progesterone [Mass/Vol] 13.3 ng/mL . [facility] Comment on above: Follicular phase 0.1 - 0.9 Luteal phase 1.8 - 23.9 Ovulation phase 0.1 - 12.0 First trimester 11.0 - 44.3 Second trimester 25.4 - 83.3 Third trimester 58.7 - 214.0 Postmenopausal 0.0 - 0.1Performed at: [address] [id number] Director: Alexis Ashton PhD, Phone: [phone] Progesteroneon 11-30-2023 Progesterone 16.9 ng/mL Normal . [facility] Comment on above: Result Comment: Foll icular phase 0.1 - 0.9 Luteal phase 1.8 - 23.9 Ovulation phase 0.1 - 12.0 First trimester 11.0 - 44.3 Second trimester 25.4 - 83.3 Third trimester 58.7 - 214.0 Postmenopausal 0.0 - 0.1 Performed at: [facility] [address] [place], [place] [id number] Hospital Librarian: Alexis Ashton PhD, Phone: [phone] PERFORMED BY: [place] [address] [place] [address] PATHOLOGIST SERVICE DELIVERY ANALYST JORDI SMITH M.D. Performed By: #### P ANTHONY ####[facility] , Serum or plasma progesterone measurement (mass/volume)Ordered By: Brain Way on 11-30-2023 Progesterone [Mass/Vol] 16.9 ng/mL . [facility] Comment on above: Follicular phase 0.1 - 0.9 Luteal phase 1.8 - 23.9 Ovulation phase 0.1 - 12.0 First trimester 11.0 - 44.3 Second trimester 25.4 - 83.3 Third trimester 58.7 - 214.0 Postmenopausal 0.0 - 0.1Performed at: [facility] [place] [id number] Director: Alexis Ashton PhD, Phone: [phone] CNOVon 11-18-2023 CNOV Office Visit (ENDOMN ) -- TAWNYA HERRING ([id number]) 1995 F Date Time Provider Department 11/18/23 8:30 AM [facility] ENDOMN During your visit today, we recorded the following information about you: Pulse Blood pressure Weight Last Period 100/minute 132/92 110.7 kg 11/09/23 Odalis Greene 11/18/2023 7:58 AM Signed Thank you for choosing the [facility] Department of Endocrinology, Diabetes and Metabolism. Did you know that you need to call 48 hours in advance of your scheduled visit, if you are unable to make your appointment? The [facility]inology [facility] Met[facility] [place] thanks you for your commitment, because patients not showing to their appointment results in a lost opportunity for patients to receive [facility] health care at the [facility]. To Cancel an appointment, please choose one of the following: - Call the Appointment Call Center at [phone] - From [employer], Go to Appointments - Cancel Appts If cancelling, consider your need to reschedule to prevent further delays in your care. To Schedule an appointment, please choose one of the following: - Call the Appointment Call Center at [phone] - From [employer], Go to Appointments - Request an Appt [...] levothyroxine 75 mcg daily. RTN 1 year. uRby Whittington MD Endocrinology Staff Allergies As of [...] as of 11/18/2023 - cyanocobalamin/folic acid (VITAMIN E25-SCITV ACID) 1,000-400 mcg lozg Take by mouth (more content not included)... Normal [facility] Progesteroneon 11-01-2023 Progesterone 7.1 ng/mL Normal . [facility] Comment on above: Result Comment: Foll icular phase 0.1 - 0.9 Luteal phase 1.8 - 23.9 Ovulation phase 0.1 - 12.0 First trimester 11.0 - 44.3 Second trimester 25.4 - 83.3 Third trimester 58.7 - 214.0 Postmenopausal 0.0 - 0.1 Performed at: [facility] [address] [place] [id number] Hospital Librarian: Alexis Ashton PhD, Phone: [phone] PERFORMED BY: [facility] [place] [address] PATHOLOGIST SERVICE DELIVERY ANALYST JORDI SMITH M.D. Performed By: #### P ANTHONY ####[facility] , Serum or plasma progesterone measurement (mass/volume)Ordered By: Brain Way on 11-01-2023 Progesterone [Mass/Vol] 7.1 ng/mL . [facility] Comment on above: Follicular phase 0.1 - 0.9 Luteal phase 1.8 - 23.9 Ovulation phase 0.1 - 12.0 First trimester 11.0 - 44.3 Second trimester 25.4 - 83.3 Third trimester 58.7 - 214.0 Postmenopausal 0.0 - 0.1Performed at: [employer] [facility] [place] [id number] Director: Aleixs Ashton PhD, Phone: [phone] Progesteroneon 10-01-2023 Progesterone 0.9 ng/mL Normal . [facility] Comment on above: Result Comment: Foll icular phase 0.1 - 0.9 Luteal phase 1.8 - 23.9 Ovulation phase 0.1 - 12.0 First trimester 11.0 - 44.3 Second trimester 25.4 - 83.3 Third trimester 58.7 - 214.0 Postmenopausal 0.0 - 0.1 Performed at: [facility] [address] [place], [place] [id number] Hospital Librarian: Alexis Ashton PhD, Phone: [phone] PERFORMED BY: [facility] [address] [place] [address] PATHOLOGIST SERVICE DELIVERY ANALYST JORDI SMITH M.D. Performed By: #### P ANTHONY ####[facility] , Serum or plasma progesterone measurement (mass/volume)Ordered By: Brain Way on 10-01-2023 Progesterone [Mass/Vol] 0.9 ng/mL . [facility] Comment on above: Follicular phase 0.1 - 0.9 Luteal phase 1.8 - 23.9 Ovulation phase 0.1 - 12.0 First trimester 11.0 - 44.3 Second trimester 25.4 - 83.3 Third trimester 58.7 - 214.0 Postmenopausal 0.0 - 0.1Performed at: CB - [facility] [address] [id number] Director: Alexis Ashton PhD, Phone: [phone] Ambulatory Visit Summaryon 0 09-29-2023 Ambulatory Visit [...] When: Where: [address] [place] [address] [place] [address]- Medications What How Much When Why Instructions New amoxicillin-clavulanate (Augmentin 875 mg oral tablet) 1 Tablets By Mouth Every 12 hours Sinusitis BMI 38.0-38.9,adult Duration: 10 Days Pickup at [facility] New methylPREDNISolone (Medrol Dosepack 4 mg Tab) 1 Packets By Mouth As Directed Sinusitis BMI 38.0-38.9,adult Duration: 6 Days as directed on package labeling Pickup at [facility] Unchanged citalopram (CeleXA 20 mg Tab) 1 Tablets By Mouth Every day Contact prescribing physician if questions or concerns Unchanged citalopram (citalopram 20 mg Tab) Contact prescribing physician if questions or concerns Unchanged pyridoxine (Vitamin B6 100 mg Tab) By Mouth Every day Contact prescribing physician if questions or concerns Pharmacy Information [facility]: [address] [place], [place] [id number] [phone] Allergies No Known Allergies No Known Medication [...] choosing us for your care. [facility] Medicine Office/Clini [...] with voice recognition software. Occasional wrong-word or ?squkx-u-fuai? substitutions may have occurred due to the [...] with improvement. She does not use any lvtc-ewg-rcwlhqa Flonase and has not tried any other [...] day(s), # 20 tab(s), Refills(s) 0, Pharmacy: [facility], 170.2, cm, 09/29/23 10:44:00 EST, Height/Length Dosing, 112, kg, 09/29/23 10:44:00 EST, Weight Dosing methylPREDNISolone, = 1 packet(s), Oral, As Directed, as directed on package labeling, X 6 day(s), # 21 tab(s), Refills(s) 0, Pharmacy: [facility], 170.2, cm, 09/29/23 10:44:00 EST, Height/Length Dosing, 112, kg, 09/29/23 10:44:00 EST, Weight Dosing 2. BMI 38.0-38.9,adult (Z68.38: Body mass index [BMI] 38.0-38.9, adult) The standard range for ages 18 and olde (more content not included)... Normal [facility] Comment on above: Result Comment: [...] ? Medicines that treat allergies (antihistamines). ? Okwf-bmj-njwiewy pain relievers. ? If caused by bacteria, [...] home: Medicines ? 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 ? Do not smoke. Avoid being around people who are smoking (secondhand smoke). ? Keep all follow-up visits. This is important. Contact a health care provider if: ? You have a fever. ? Your symptoms get (more content not included)... Normal [facility] CNPNon 07-16-2023 CNPN Telephone (ENDCMN) -- TAWNYA HERRING ([id number]) 1995 F Date Time Provider Department 07/16/23 [facility] During your visit today, we recorded the [...] Encounter Status:Closed by KENAN GOMEZ on 07/16/23 [facility] CNOVon 06-08-2023 CNOV Office Visit (OTOLLN ) -- TAWNYA HERRING ([id number]) 1995 F Date Time Provider Department 06/08/23 [...] will be in touch with results via Hypertension Diagnosticst HPI: Tawnya is a 27 year old [...] Low Allergies (more content not included)... Normal [facility] Alanine aminotransferase [En zymatic activity/volume] in Serum or PlasmaOrdered By: Addi Ortega on 04-08-2023 ALT [Catalytic activity/Vol] 28 U/L 7-52 [facility] Albumin [Mass/volume] in Ser um or Plasma by Bromocresol green (BCG) dye binding methoOrdered By: Addi Ortega on 04-08-2023 Albumin BCG dye [Mass/Vol] 4.8 g/dL 3.5-5.7 [facility] Alkaline phosphatase [Enzyma tic activity/volume] in Serum or PlasmaOrdered By: Addi Ortega on 04-08-2023 ALP [Catalytic activity/Vol] 61 U/L 34-104 [facility] Aspartate aminotransferase [ Enzymatic activity/volume] in Serum or PlasmaOrdered By: Addi Ortega on 04-08-2023 AST [Catalytic activity/Vol] 13 U/L 13-39 [facility] Basophils Auto (Bld) [#/Vol] Ordered By: Addi Ortega on 04-08-2023 Basophils (Bld) [#/Vol] 0.0 10*3/uL 0.0-0.2 [facility] Basophils/100 WBC Auto (Bld) Ordered By: Addi Ortega on 04-08-2023 Basophils/100 WBC (Bld) 0.4 % . [facility] Bilirubin.total [Mass/volume ] in Serum or PlasmaOrdered By: Addi Ortega on 04-08-2023 Bilirubin [Mass/Vol] 0.4 mg/dL 0.3-1.0 [facility] Calcium [Mass/volume] in Ser um or PlasmaOrdered By: Addi Ortega on 04-08-2023 Calcium [Mass/Vol] 9.5 mg/dL 8.6-10.3 [facility] Carbon dioxide, total [Moles /volume] in Serum or PlasmaOrdered By: Addi Ortega on 04-08-2023 CO2 [Moles/Vol] 25.4 mmol/L 21.0-31.0 [facility] Chloride [Moles/volume] in S ghada or PlasmaOrdered By: Addi Ortega on 04-08-2023 Chloride [Moles/Vol] 106 mmol/L 98-107 [facility] Cholesterol [Mass/volume] in Serum or PlasmaOrdered By: Addi Ortega on 04-08-2023 Cholesterol [Mass/Vol] 162 mg/dL 140-200 [facility] Comment on above: Chol less than 200 m g/dl low riskChol 201-239 mg/dl borderline riskChol 240 mg/dl and greater high risk Cholesterol in LDL Calc [Mas s/Vol]Ordered By: Addi Ortega on 04-08-2023 Cholesterol in LDL [Mass/Vol] 99 mg/dL 0-100 [facility] Comment on above: LDL ATP III CLASSIFI CATIONLDL less than 100 mg/dL OptimalLDL 100-129 mg/dL Near or above optimalLDL 130-159 mg/dL Borderline highLDL 160-189 mg/dL HighLDL greater than 189 mg/dL Very high Cholesterol in VLDL Calc [Ma ss/Vol]Ordered By: Addi Ortega on 04-08-2023 Cholesterol in VLDL [Mass/Vol] 18 mg/dL [facility] Creatinine [Mass/volume] in Serum or PlasmaOrdered By: Addi Ortega on 04-08-2023 Creatinine [Mass/Vol] 0.59 mg/dL 0.60-1.20 [facility] Eosinophils Auto (Bld) [#/Vo l]Ordered By: Addi Ortega on 04-08-2023 Eosinophils (Bld) [#/Vol] 0.1 10*3/uL 0.0-0.45 [facility] Eosinophils/100 WBC Auto (Bl d)Ordered By: Addi Ortega on 04-08-2023 Eosinophils/100 WBC (Bld) 1.3 % . [facility] Erythrocyte distribution wid th Auto (RBC) [Ratio]Ordered By: Addi Ortega on 04-08-2023 Erythrocyte distribution width (RBC) [Ratio] 12.6 % 11.9-15.3 [facility] Globulin Calc (S) [Mass/Vol] Ordered By: Addi Ortega on 04-08-2023 Globulin (S) [Mass/Vol] 2.7 g/dL [facility] Glucose [Mass/volume] in Ser um or PlasmaOrdered By: Addi Ortega on 04-08-2023 Glucose [Mass/Vol] 83 mg/dL 70-100 [facility] Hematocrit Auto (Bld) [Volum e fraction]Ordered By: Addi Ortega on 04-08-2023 Hematocrit (Bld) [Volume fraction] 39.3 % 34.0-46.4 [facility] Hemoglobin [Mass/volume] in BloodOrdered By: Addi Ortega on 04-08-2023 Hemoglobin (Bld) [Mass/Vol] 13.6 g/dL 11.8-15.4 [facility] Leukocytes [#/volume] correc hamilton for nucleated erythrocytes in Blood by Automated counOrdered By: Addi Ortega on 04-08-2023 WBC corrected for nucl RBC Auto (Bld) [#/Vol] 7.6 10*3/uL 3.8-11.6 [facility] Lymphocytes Auto (Bld) [#/Vo l]Ordered By: Addi Ortega on 04-08-2023 Lymphocytes (Bld) [#/Vol] 2.9 10*3/uL 1.00-4.8 [facility] Lymphocytes/100 WBC Auto (Bl d)Ordered By: Addi Ortega on 04-08-2023 Lymphocytes/100 WBC (Bld) 38.6 % . [facility] MCH Auto (RBC) [Entitic mass ]Ordered By: Addi Ortega on 04-08-2023 MCH (RBC) [Entitic mass] 31.6 pg 24.7-34.3 [facility] MCHC Auto (RBC) [Mass/Vol]Or dered By: Addi Ortega on 04-08-2023 MCHC (RBC) [Mass/Vol] 34.5 g/dL 32.0-35.0 [facility] MCV Auto (RBC) [Entitic vol] Ordered By: Addi Ortega on 04-08-2023 MCV (RBC) [Entitic vol] 91.7 fL 80-100 [facility] Monocytes Auto (Bld) [#/Vol] Ordered By: Addi Ortega on 04-08-2023 Monocytes (Bld) [#/Vol] 0.4 10*3/uL 0.0-0.8 [facility] Monocytes/100 WBC Auto (Bld) Ordered By: Addi Ortega on 04-08-2023 Monocytes/100 WBC (Bld) 5.8 % . [facility] Neutrophils Auto (Bld) [#/Vo l]Ordered By: Addi Ortega on 04-08-2023 Neutrophils (Bld) [#/Vol] 4.1 10*3/uL 1.8-7.7 [facility] Neutrophils/100 WBC Auto (Bl d)Ordered By: Addi Ortega on 04-08-2023 Neutrophils/100 WBC (Bld) 53.9 % . [facility] No Panel InformationOrdered By: Addi Ortega on 04-08-2023 Estimated GFR (CKD-EPI) > 60.0 mL/Min [facility] Nicotine Metabolite Negative Cutoff=25 [facility] Comment on above: Performed at: - [address] [id number] Director: Catherine Mendoza MD, Phone: [phone] Pharmacy Creatinine Clearance (Chem N/A [facility] Nucleated erythrocytes [Pres ence] in Blood by Automated countOrdered By: Addi Ortega on 04-08-2023 Nucleated RBC Auto Ql (Bld) 0.0 /100{WBC} 0-0.5 [facility] Platelet mean volume Auto (B ld) [Entitic vol]Ordered By: Addi Ortega on 04-08-2023 Platelet mean volume (Bld) [Entitic vol] 8.6 fL 6.3-10.7 [facility] Platelets Auto (Bld) [#/Vol] Ordered By: Addi Ortega on 04-08-2023 Platelets (Bld) [#/Vol] 361 10*3/uL 150-450 [facility] Potassium [Moles/volume] in Serum or PlasmaOrdered By: Addi Ortega on 04-08-2023 Potassium [Moles/Vol] 4.6 mmol/L 3.5-5.1 [facility] Protein [Mass/volume] in Ser um or PlasmaOrdered By: Addi Ortega on 04-08-2023 Protein [Mass/Vol] 7.5 g/dL 6.4-8.9 [facility] RBC Auto (Bld) [#/Vol]Ordere d By: Addi Ortega on 04-08-2023 RBC (Bld) [#/Vol] 4.29 10*6/uL 3.60-5.00 [facility] Serum or plasma albumin/glob ulin mass ratioOrdered By: Addi Ortega on 04-08-2023 Albumin/Globulin [Mass ratio] 1.8 {ratio} [facility] Serum or plasma anion gap de terminationOrdered By: Addi Ortega on 04-08-2023 Anion gap [Moles/Vol] 12.2 mmol/L 6.0-15.0 [facility] Serum or plasma high density lipoprotein (HDL) cholesterol measurementOrdered By: Addi Ortega on 04-08-2023 Cholesterol in HDL [Mass/Vol] 45 mg/dL 23- [facility] Comment on above: HDL CHOL ATP-III CLA SSIFICATION Cardiovascular RiskHDL > or equal to 60 mg/dL LOWHDL < 40 mg/dL HIGH Serum or plasma total choles terol/high density lipoprotein (HDL) cholesterol mass ratOrdered By: Addi Ortega on 04-08-2023 Cholesterol.total/Cho lesterol in HDL [Mass ratio] 3.6 {ratio} <5.0 [facility] Sodium [Moles/volume] in Ser um or PlasmaOrdered By: Addi Ortega on 04-08-2023 Sodium [Moles/Vol] 139 mmol/L 136-145 [facility] Thyrotropin [Units/volume] i n Serum or PlasmaOrdered By: Addi Ortega on 04-08-2023 TSH Qn 4.55 m[IU]/L 0.45-5.33 [facility] Triglyceride [Mass/volume] i n Serum or PlasmaOrdered By: Addi Ortega on 04-08-2023 Triglyceride [Mass/Vol] 92 mg/dL 0-149 [facility] Comment on above: TRIG ATP III CLASSIF ICATIONTRIG less than 150 mg/dL NormalTRIG 150-199 mg/dL Borderline highTRIG 200-500 mg/dL High TRIG greater than 500 mg/dL Very highStandard traceable to the Center for Disease Conrtrol and Prevention (CDC) test method. Urea nitrogen [Mass/volume] in Serum or PlasmaOrdered By: Addi Ortega on 04-08-2023 Urea nitrogen [Mass/Vol] 18 mg/dL 7-25 [facility] WBC Auto (Bld) [#/Vol]Ordere d By: Addi Ortega on 04-08-2023 WBC (Bld) [#/Vol] 7.6 10*3/uL 3.8-11.6 [facility] C Urineon 03-24-2023 Bacteria identified Cx Nom [...] Locations R1: This test was performed at: [facility], [address] [place], [address]- , [place], Normal [facility] Comment on above: Performed By: #### 2 [id number], [id number], [id number], [id number], [id number] #### [facility] [address] [place] [address] Abdomen/Pelvis w/o Contra ston 03-23-2023 CT [...] structures are unremarkable. Report Ordering Provider: Hector Crorea FINAL REPORT Dictated: 03/23/2023 8:50 am Dwayne Dallas MD Signed (Electronic Signature): 03/23/2023 8:50 am Signed by: Dwayne Dallas MD Transcribed by: EDWIN Technologist: KG Technical Comments Rectal Contrast Given? No Oral contrast amount in ml's: 0 Normal [facility] Discharge Instructionson Discharge Instructions [id number]:127 Normal [facility] ED Note-Physicianon 03-23-20 ED Note-Physician [...] any medications. States that she was at [facility], where she did wait about 5 [...] day(s), # 28 cap(s), Refills(s) 0, Pharmacy: [facility], 170.2, cm, 03/22/23 20:14:00 EDT, Height/Length Dosing, 113.5, kg, 03/22/23 20:14:00 EDT, Weight Dosing ketorolac, 30 mg = 1 mL, Injection, IV Push, Once, Stop date 03/22/23 20:51:00 EDT, STAT, Start date 03/22/23 20:51:00 EDT, 03/22/23 20:51:00 EDT ondansetron, 4 mg = 2 mL, Injection, IV Push, Once, Stop date 03/22 (more content not included)... Normal [facility] Comment on above: Result Comment: Elec tronically Signed By: Hector Correa PA-C\.br\Date and Time Signed: 03/22/23 23:35 EDT\.br\Electronically Co-Signed By: Gabriel Curtis DO.br\Date and Time Co-Signed: 03/23/23 03:21 EDT RAD - Preliminary Cat Scan R eporton 03-23-2023 RAD - Preliminary Cat Scan Report [id number]:127 Normal [facility] Auto Diffon 03-22-2023 Basophils/100 WBC (Bld) 0.5 % Normal 0.0-2.0 [facility] Comment on above: Order Comment: Order Added by Discern Expert. Performed By: #### 2 082679, 3593616, 47128419, 5695515, 7264765, 2025733 #### [facility] [address] [place] [address] Basophils/Leukocytes Auto (Bld) [Pure # fraction] 0.0 E9/L Normal 0.0-0.2 [facility] Comment on above: Order Comment: Order Added by Discern Expert. Performed By: #### 2 464473, 8513641, 35847511, 7374736, 8821019, 4379146 #### [facility] [address] [place] [address] Eosinophils/100 WBC (Bld) 1.5 % Normal 0.0-8.0 [facility] Comment on above: Order Comment: Order Added by Discern Expert. Performed By: #### 2 747018, 5286485, 45100573, 9910577, 1379355, 4705910 #### [facility] [address] [place] [address] Eosinophils/Leukocyte s Auto (Bld) [Pure # fraction] 0.1 E9/L Normal 0.0-0.5 [facility] Comment on above: Order Comment: Order Added by Discern Expert. Performed By: #### 2 330877, 1963920, 13127779, 8266334, 1432961, 2331069 #### [facility] [address] [place] [address] Lymphocytes/100 WBC (Bld) 34.9 % Normal 14.0-50.0 [facility] Comment on above: Order Comment: Order Added by Discern Expert. Performed By: #### 2 986620, 7584802, 05416032, 1783819, 7256304, 9978183 #### [facility] [address] [place] [address] Lymphocytes/Leukocyte s Auto (Bld) [Pure # fraction] 3.4 E9/L Normal 1.0-4.0 [facility] Comment on above: Order Comment: Order Added by Discern Expert. Performed By: #### 2 792540, 9472387, 91293040, 7918868, 9725286, 3902381 #### [facility] [address] [place] [address] Monocytes/100 WBC (Bld) 6.0 % Normal 4.0-14.0 [facility] Comment on above: Order Comment: Order Added by Discern Expert. Performed By: #### 2 559254, 1645772, 61939635, 2432966, 9449423, 2934129 #### [facility] [address] [place] [address] Monocytes/Leukocytes Auto (Bld) [Pure # fraction] 0.6 E9/L Normal 0.2-1.0 [facility] Comment on above: Order Comment: Order Added by Mundo Expert. Performed By: #### 2 994446, 1969696, 37638366, 4317134, 6325741, 8976192 #### [facility] [address] [place] [address] Neutrophils/100 WBC (Bld) 57.1 % Normal 36.0-75.0 [facility] Comment on above: Order Comment: Order Added by Discern Expert. Performed By: #### 2 256112, 7199811, 11388017, 2623408, 1821465, 9985342 #### [facility] [address] [place] [address] Neutrophils/Leukocyte s Auto (Bld) [Pure # fraction] 5.6 E9/L Normal 2.0-7.5 [facility] Comment on above: Order Comment: Order Added by Mundo Expert. Performed By: #### 2 268310, 8997077, 51228747, 5473884, 5293532, 6080903 #### [facility] [address] [place] [address] BMPon 03-22-2023 Creatinine [Mass/Vol] 0.5 mg/dL Normal 0.5-1.3 [facility] Comment on above: Performed By: #### 2 845271, 8393213, 92023732, 5961208, 0909557, 8550579 #### [facility] [address] [place] [address] Urea nitrogen [Mass/Vol] 15 mg/dL Normal 5-21 [facility] Comment on above: Performed By: #### 2 236460, 6615507, 81362038, 4468492, 6066606, 1788874 #### [facility] [address] [place] [address] Urea nitrogen/Creatinine [Mass ratio] 30 No Units High 10-20 [facility] Comment on above: Performed By: #### 2 637229, 3809471, 35108883, 7614696, 7171016, 2242876 #### [facility] [address] [place] [address] Anion gap [Moles/Vol] 15 mmol/L Normal 6-16 [facility] Comment on above: Performed By: #### 2 828911, 3452268, 88052078, 9240123, 4386710, 4441175 #### [facility] [address] [place] [address] Calcium [Mass/Vol] 9.6 mg/dL Normal 8.9-11.1 [facility] Comment on above: Performed By: #### 2 071501, 1383644, 09627620, 6709653, 2706052, 6794140 #### [facility] [address] [place] [address] Chloride [Moles/Vol] 103 mmol/L Normal 101-111 [facility] Comment on above: Performed By: #### 2 957367, 4143017, 14206186, 7899581, 0401198, 3859286 #### [facility] [address] [place] [address] CO2 [Moles/Vol] 23 mmol/L Normal 21-31 [facility] Comment on above: Performed By: #### 2 888548, 1071350, 77352010, 2821745, 7922865, 6937293 #### [facility] [address] [place] [address] Glucose [Mass/Vol] 84 mg/dL Normal 55-199 [facility] Comment on above: Result Comment: If t his glucose result represents a fasting glucose, interpretation should refer to the following reference range: 55-99 mg/dL Performed By: #### 2 968600, 0960004, 98080421, 3338837, 5892373, 9976859 #### [facility] [address] [place] [address] Potassium [Moles/Vol] 3.7 mmol/L Normal 3.5-5.3 [facility] Comment on above: Performed By: #### 2 675946, 5194828, 29032831, 5199558, 4211923, 6445599 #### [facility] [address] [place] [address] Sodium [Moles/Vol] 137 mmol/L Normal 135-145 [facility] Comment on above: Performed By: #### 2 276900, 8668002, 35623151, 0162924, 7317539, 2123601 #### [facility] [address] [place] [address] CBC w/ Auto Diffon 3 Erythrocyte distribution width (RBC) [Ratio] 12.5 % Normal 10.9-14.2 [facility] Comment on above: Performed By: #### 2 990427, 0706095, 12356296, 8431153, 9256859, 6830999 #### [facility] [address] [place] [address] Hematocrit (Bld) [Volume fraction] 37.7 % Normal 34.0-46.0 [facility] Comment on above: Performed By: #### 2 408356, 8038700, 64980303, 6040548, 6445306, 9848280 #### [facility] [address] [place] [address] Hemoglobin (Bld) [Mass/Vol] 13.1 g/dL Normal 12.0-16.0 [facility] Comment on above: Performed By: #### 2 875647, 1132032, 35153714, 2414868, 3525916, 0023484 #### [facility] [address] [place] [address] MCH (RBC) [Entitic mass] 31.9 pg Normal 27.0-34.0 [facility] Comment on above: Performed By: #### 2 256697, 5870347, 23502039, 3365144, 7197999, 6122976 #### [facility] [address] [place] [address] MCHC (RBC) [Mass/Vol] 34.8 g/dL Normal 31.4-36.0 [facility] Comment on above: Performed By: #### 2 931915, 8847415, 40255108, 9747432, 9380768, 3970947 #### [facility] [address] [place] [address] MCV (RBC) [Entitic vol] 91.6 fL Normal 80.0-100.0 [facility] Comment on above: Performed By: #### 2 031599, 8027160, 62424490, 7617901, 6721049, 4148028 #### [facility] [address] [place] [address] Platelet mean volume (Bld) [Entitic vol] 7.6 fL Normal 6.4-10.8 [facility] Comment on above: Performed By: #### 2 519574, 8073042, 01443507, 9064093, 0161195, 1584479 #### [facility] [address] [place] [address] Platelets (Bld) [#/Vol] 306.0 E9/L Normal 150.0-500. 0 [facility] Comment on above: Performed By: #### 2 811656, 9856044, 78756289, 6289970, 8885913, 4115879 #### [facility] [address] [place] [address] RBC (Bld) [#/Vol] 4.1 E12/L Low 4.3-5.9 [facility] Comment on above: Performed By: #### 2 690094, 9988785, 44654464, 7114087, 0658395, 4327465 #### [facility] [address] [place] [address] WBC corrected for nucl RBC Auto (Bld) [#/Vol] 9.8 E9/L Normal 4.0-11.0 [facility] Comment on above: Performed By: #### 2 410998, 4873369, 46947280, 1198112, 6153291, 9474057 #### [facility] [address] [place] [address] CHEMISTRYOrdered By: SYSTEM SYSTEM on 03-22-2023 Albumin [...] Consent for Treatmenton Consent for Treatment [id number]:127 Normal [facility] ED Clinical Summaryon 2022 ED Clinical Summary (Inserted Image. Hayley ble to display) [address] [address] ED Clinical Summary Person Information Name: TAWNYA HERRING [facility] Age: 27 Years : 1995 Sex: Female Language: Nepalese PCP: DARWIN JONES CNP Marital Status: Single Phone: [phone] Visit Id: Visit Reason: Dysuria; Nausea; Flank [...] 03/22/2023 22:52:44 03/22/2023 22:52:44 03/22/2023 22:52:44 ADDRESS: [address] [place] [id number] PHYS DOC NOTES: MEDICAL INFORMATION: Prescriptions Given: New Medications [facility], [address] [place] [id number], [phone] cephalexin (Keflex 500 mg Cap) 1 Capsules By Mouth every 6 hours for 7 Days. Refills: 0. Medications to Continue with No Changes Other Medications acetaminophen-hydrocodone ([place] 325 mg-5 mg oral tablet) 2 Tablets [...] EDUCATION INFORMATION: Instructions: Urinary Tract Infection, Adult, Wcrg-no-Xgyt Follow up: With: Address: When: DARWIN ROBERTFLORENTINFREDERICK [address] [facility] [place] [phone] Business (1) In 3 days 03/25/2023 Comments: Follow-up with your primary care provider in 3 to 5 days. If symptoms worsen, do not improve, or new symptoms arise please report back to emergency department for further evaluation. DIAGNOSIS: UTI (urinary tract infection) Normal [facility] ED Patient Education Noteon 03-22-2023 [...] these instructions at home: Medicines ? Take fusp-gdl-dpssmrm and prescription medicines only as told by [...] provider. Document Revised: 03/14/2021 Document Reviewed: 03/14/2021 [employer] Patient Education ? 2022 [employer]. Normal [facility] ED Patient Summaryon 023 ED Patient Summary (Inserted Image. Hayley ble to display) [place] [id number] Patient Discharge Instructions Person Information Name: TAWNYA HERRING Age: 27 Years Arrival Date: 03/22/2023 19:52:37 Discharge Diagnosis: UTI (urinary tract infection) Primary Care Physician: DARWIN JONES CNP Provider Information Primary Provider: Gabriel Curtis DO Advanced Code Number Stamper:None The exam and treatment you received in the Emergency Department were for an urgent problem and are not intended as complete care. It is important that you follow up with a doctor, nurse practitioner, or physician?s classroom assistant for ongoing care. If your symptoms [...] Instructions: With: Address: When: DARWIN JONES [address] [facility] [place] [phone] Business (1) In 3 days 03/25/2023 Comments: [...] Patient Education Materials: Urinary Tract Infection, Adult, Jrgw-ea-Efac A MESSAGE TO ALL PATIENTS REGARDING OPIOIDS PRESCRIPTION OPIOIDS: WHAT YOU NEED TO KNOW Prescription opioids can be used to help relieve dfdjshdc-ge-ddxvka pain and are often prescribed following a [...] of op (more content not included)... Normal [facility] HEMATOLOGYOrdered By: SYSTEM SYSTEM on [...] 03-22-2023 Albumin [Mass/Vol] 4.2 g/dL Normal 3.3-5.0 [facility] Comment on above: Performed By: #### 2 543120, 4150399, 73593322, 0455325, 3207210, 5005286 #### [facility] [address] [place] [address] Albumin/Globulin (S) [Mass conc ratio] 1.4 Normal 1.1-2.2 [facility] Comment on above: Performed By: #### 2 941640, 1180030, 23461769, 6609108, 9593546, 7855725 #### [facility] [address] [place] [address] ALP [Catalytic activity/Vol] 54 Int._Unit/L Normal 21-98 [facility] Comment on above: Performed By: #### 2 382284, 8499807, 79670459, 3152147, 1510130, 4073342 #### [facility] [address] [place] [address] ALT No additional P-5'-P [Catalytic activity/Vol] 24 Int._Unit/L Normal 6-46 [facility] Comment on above: Performed By: #### 2 244082, 8766544, 77478447, 6977571, 0512308, 0693580 #### [facility] [address] [place] [address] AST [Catalytic activity/Vol] 18 Int._Unit/L Normal 5-43 [facility] Comment on above: Performed By: #### 2 181040, 6328191, 88567851, 0326008, 8409333, 9176877 #### [facility] [address] [place] [address] Bilirubin [Mass/Vol] 0.7 mg/dL Normal 0.0-1.1 [facility] Comment on above: Performed By: #### 2 064867, 4690934, 85363245, 2727944, 0341823, 7830559 #### [facility] [address] [place] [address] Bilirubin.direct [Mass/Vol] 0.1 mg/dL Normal 0.1-0.4 [facility] Comment on above: Performed By: #### 2 441790, 6615153, 51170120, 3468011, 0955086, 7286503 #### [facility] [address] [place] [address] Bilirubin.indirect [Mass or moles/Vol] 0.6 mg/dL Normal 0.1-0.9 [facility] Comment on above: Performed By: #### 2 082602, 4119197, 91287023, 6168100, 2281057, 4994261 #### [facility] [address] [place] [address] Globulin (S) [Mass/Vol] 3.1 g/dL Normal 1.4-4.0 [facility] Comment on above: Performed By: #### 2 812859, 1289986, 05310196, 0192002, 7982151, 7934356 #### [facility] [address] [place] [address] Protein [Mass/Vol] 7.3 g/dL Normal 6.0-7.8 [facility] Comment on above: Performed By: #### 2 656038, 1637598, 25788814, 5814310, 5482718, 8773611 #### [facility] [address] [place] [address] Lipase Levelon 03-22-2023 Lipase [Catalytic activity/Vol] 28 U/L Normal 13-58 [facility] Comment on above: Performed By: #### 2 257150, 9191151, 81852174, 4677394, 3335066, 1955557 #### [facility] [address] [place] [address] SEROLOGYOrdered By: Lucina Shaikh on 03-22-2023 HCG.beta subunit (U) [Moles/Vol] Negative Normal [facility] Man Sero U BetaHcg Qualon 03-22-2023 HCG.beta subunit (U) [Moles/Vol] Negative Normal [facility] Comment on above: Performed By: #### 2 977109, 4644238, 44727908, 3967776, 2573255, 9296887 #### [facility] [address] [place] [address] UA With Cult Reflexon 2022 Bacteria LM Ql (Urine sed) TRACE Normal Trace [facility] Comment on above: Performed By: #### 2 011586, 0840955, 05664944, 7762043, 3823570, 6203573 #### [facility] [address] [place] [address] Bilirubin Ql (U) Negative Normal Negative [facility] Comment on above: Performed By: #### 2 857087, 0690142, 31302706, 8400387, 1686845, 2031454 #### [facility] [address] [place] [address] Clarity (U) SL CLOUDY Abnormal Clear [facility] Comment on above: Performed By: #### 2 516045, 3868722, 95530672, 1896316, 8847460, 3840668 #### [facility] [address] [place] [address] Color (U) YELLOW Normal Yellow [facility] Comment on above: Performed By: #### 2 706723, 4071229, 97673758, 5673504, 4527572, 5199061 #### [facility] [address] [place] [address] Crystals LM Ql (Urine sed) Present Normal [facility] Comment on above: Performed By: #### 2 761409, 7835725, 50049977, 5324162, 9973748, 2933365 #### [facility] [address] [place] [address] Epithelial cells.squamous LM.HPF (Urine sed) [#/Area] 0-2 Normal 0-2 [facility] Comment on above: Performed By: #### 2 078606, 9169961, 18652902, 2203374, 8497580, 5325301 #### [facility] [address] [place] [address] Glucose Test strip (U) [Mass/Vol] Negative Normal Negative [facility] Comment on above: Performed By: #### 2 316532, 6573607, 73335937, 2186350, 1192422, 3720449 #### [facility] [address] [place] [address] Hemoglobin Ql (U) 2+ Abnormal Negative [facility] Comment on above: Performed By: #### 2 405734, 3475575, 58631177, 1490356, 3574888, 7582418 #### [facility] [address] [place] [address] Ketones (U) [Mass/Vol] 1+ Abnormal Negative [facility] Comment on above: Performed By: #### 2 596306, 4988886, 42865954, 0842115, 6073739, 8976906 #### [facility] [address] [place] [address] Crossgate.plasma/Lithiu m.RBC (Bld) [Mass ratio] 0-3 Normal 0-3 [facility] Comment on above: Performed By: #### 2 694046, 9434612, 33812310, 5526912, 2476442, 4055259 #### [facility] [address] [place] [address] Mucus Ql (Urine sed) TRACE Normal [facility] Comment on above: Performed By: #### 2 854605, 8539134, 54917832, 1205466, 1563170, 3388095 #### [facility] [address] [place] [address] Nitrite Ql (U) Negative Normal Negative [facility] Comment on above: Performed By: #### 2 168722, 7660293, 30393483, 6965053, 7664650, 3727214 #### [facility] [address] [place] [address] pH (U) 5.5 [pH] Invalid Interpretation Code 5.0-9.0 [facility] Comment on above: Performed By: #### 2 768648, 1660752, 84865164, 4256667, 1767313, 0088959 #### [facility] [address] [place] [address] Protein (U) [Mass/Vol] Negative Normal Negative [facility] Comment on above: Performed By: #### 2 986461, 8131634, 35130076, 9114514, 0446834, 9201802 #### [facility] [address] [place] [address]266[address] Specific gravity (U) [Rel density] >=1.030 Invalid Interpretation Code 1.005-1.03 0 [facility] Comment on above: Performed By: #### 2 421823, 5268143, 86327978, 3528307, 8872685, 3884986 #### [facility] [address] [place] [address] Type of Urine collection method Clean Catch Normal [facility] Comment on above: Performed By: #### 2 132375, 3910554, 16324149, 8981495, 5416335, 6838225 #### [facility] [address] [place], [place] [address] Urobilinogen Qn (U) 0.2 {Aly'U}/dL Normal 0.0-1.0 [facility] Comment on above: Performed By: #### 2 843077, 6741329, 90600805, 8690067, 9413875, 0418829 #### [facility] [address] [place] [address] WBC Auto Ql (U) 2+ Abnormal Negative [facility] Comment on above: Performed By: #### 2 484592, 7310865, 36344637, 2514627, 2484822, 8835272 #### [facility] [address] [place] [address] WBC LM.HPF (Urine sed) [#/Area] 16-25 Abnormal 0-5 [facility] Comment on above: Performed By: #### 2 117425, 9921751, 19074899, 4124345, 1878320, 6387791 #### [facility] [address] [place] [address] URINALYSISOrdered By: Elizabeth Shaikh on 03-22-2023 Bacteria [...] Interpretation Code Negative [facility] UA Auto SS [place].plasma/Lithiu m.RBC (Bld) [Mass ratio] 0-3 /HPF Normal [...] Desc Clean Catch (03/22/23 8:17 PM) Normal [facility] UA Auto SS Urobilinogen Qn (U) 0.6463793 {Aly'U}/dL Normal 0.0 - 1.0 EU/dL [facility] UA Auto SS WBC Auto Ql (U) 2+ *ABN* (03/22/23 8:17 PM) Invalid Interpretation Code Negative [facility] UA Auto SS WBC LM.HPF (Urine sed) [#/Area] 16-25 /HPF Invalid Interpretation Code 0-5/HPF [facility] UA Auto SS eGFRon 03-22-2023 GFR/1.73 sq M.predicted among non-blacks MDRD (S/P/Bld) [Vol rate/Area] 133 mL/min/1.73 m2 Normal >=59 [facility] Comment on above: Order Comment: Order added by Discern Expert. Result Comment: Diesel Electrician vinh kidney disease could be indicated at eGFR's of less than 60 mL/min/1.73m2. Kidney failure is indicated at less than 15 mL/min/1.73m2. Performed By: #### 2 150310, 4944849, 29317444, 0023096, 9110312, 9833455 #### [facility] [address] [place] [address] Alanine aminotransferase [En zymatic activity/volume] in Serum or PlasmaOrdered By: Zurdo Ortega on 02-28-2023 ALT [Catalytic activity/Vol] 21 U/L 7-52 [facility] HIV 1 and HIV-2 antibody ass ay with HIV-1 p24 antigen detectionOrdered By: Zurdo Ortega on 02-28-2023 HIV 1+2 Ab+HIV1 p24 Ag IA Ql Non-Reactive Non Reactive [facility] Comment on above: HIV NegativeHIV-1/HI V-2 antibodies and HIV-1 p24 antigen were NOTdetected. There is no laboratory evidence of HIV infection. Hepatitis B virus surface Ag [Presence] in Serum or Plasma by ImmunoassayOrdered By: Zurdo Ortega on 02-28-2023 HBV surface Ag IA Ql Negative Negative [facility] Comment on above: Performed at: [address] [id number] Director: Alexis Ashton PhD, Phone: [phone] Hepatitis C virus IgG Ab [Pr esence] in Serum or Plasma by ImmunoassayOrdered By: Zurdo Ortega on 02-28-2023 HCV IgG IA Ql Non-Reactive Non Reactive [facility] No Panel InformationOrdered By: Zurdo Ortega on 02-28-2023 Hepatitis C Interpretation See comment . [facility] Comment on above: Not infected with HC V unless early or acute infection issuspected (which may be delayed in an immunocompromisedindividual), or other evidence exists to indicate HCVinfection. Serum hepatitis B virus surf nikolas antibody detectionOrdered By: Zurdo Ortega on 02-28-2023 HBV surface Ab Ql (S) Reactive . [facility] Comment on above: Non Reactive: Incons istent with immunity, less than 10 mIU/mL Reactive: Consistent with immunity, greater than 9.9 mIU/mL PAP ACOG PANEL 2: 21 to 29on 12-17-2022 . . Normal [facility] Comment on above: Performed By: #### 4 292440 #### [facility] [address] [place] [address] [address] Regine Fortune Age Gdln ACOG Testing - [facility] Comment on above: Performed By: #### 4 912452 #### [facility] [address] [place] [address] [address] Regine Fortune DIAGNOSIS: Comment [facility] Comment on above: Result Comment: NEGA TIVE FOR INTRAEPITHELIAL LESION OR MALIGNANCY. Performed By: #### 4 222210 #### [facility] [address] [place] [address] [address] Rgeine Fortune Methodology: Comment [facility] Comment on above: Result Comment: This liquid based ThinPrep(R) pap test was screened with the use of an image guided system. Performed By: #### 4 054849 #### [facility] [address] [place] [address] [address] Regine Fortune Note: Comment [facility] Comment on above: Result Comment: The Pap smear is a screening test designed to aid in the detection of premalignant and malignant conditions of the uterine cervix. It is not a diagnostic procedure and should not be used as the sole means of detecting cervical cancer. Both false-positive and false-negative reports do occur. . Performed By: #### [id number] #### [facility] [address] [place] [address] Dr. Regine Fortune Performed by: Comment Normal [facility] Comment on above: Result Comment: Amna Hernandes Layaway Clerk (ASCP) Performed By: #### [id number] #### [facility] [address] [place] [address] Dr. Regine Fortune Reflex Criteria: Comment [facility] Comment on above: Result Comment: The HPV DNA reflex criteria were not met with this specimen result therefore, no HPV testing was performed. . Performed By: #### [id number] #### [facility] [address] [place] [address] Dr. Regine Fortune Specimen adequacy: Comment Normal [facility] Comment on above: Result Comment: Sati sfactory for evaluation. Endocervical and/or squamous metaplastic cells (endocervical component) are present. Areas of partially obscuring inflammatory exudate are present. Performed By: #### [id number] #### [facility] [address] [place] [address] Dr. Regine Fortune Thyrotropin [Units/volume] i n Serum or PlasmaOrdered By: Brain Way on 12-10-2022 TSH Qn 2.86 m[IU]/L 0.45-5.33 [facility] Thyroxine (T4) free [Mass/vo lume] in Serum or PlasmaOrdered By: Brain Way on 12-10-2022 Free T4 [Mass/Vol] 0.94 ng/dL 0.61-1.12 [facility] Albumin [Mass/volume] in Ser um or PlasmaOrdered By: Ofelia Hester on 10-16-2022 Albumin [Mass/Vol] 4.1 g/dL 3.2-5.5 [facility] Alkaline phosphatase [Enzyma tic activity/volume] in Serum or PlasmaOrdered By: Ofelia Hester on 10-16-2022 ALP [Catalytic activity/Vol] 56 U/L 32-92 [facility] Amylaseon 10-16-2022 Amylase 43 U/L Normal 28-100 U/L [facility] Other Amylase [Enzymatic activity/ volume] in Serum or PlasmaOrdered By: Ofelia Hester on 10-16-2022 Amylase [Catalytic activity/Vol] 43 U/L 28-100 [facility] Aspartate aminotransferase [ Enzymatic activity/volume] in Serum or PlasmaOrdered By: Ofelia Hester on 10-16-2022 AST [Catalytic activity/Vol] 16 U/L 10-42 [facility] Bilirubin.total [Mass/volume ] in Serum or PlasmaOrdered By: Ofelia Hester on 10-16-2022 Bilirubin [Mass/Vol] 0.6 mg/dL 0.3-1.2 [facility] Calcium [Mass/volume] in Ser um or PlasmaOrdered By: Ofelia Hester on 10-16-2022 Calcium [Mass/Vol] 9.3 mg/dL 8.2-10.2 [facility] Carbon dioxide, total [Moles /volume] in Serum or PlasmaOrdered By: Ofelia Hester on 10-16-2022 CO2 [Moles/Vol] 22.1 mmol/L 22.0-30.0 [facility] Chloride [Moles/volume] in S ghada or PlasmaOrdered By: Ofelia Hester on 10-16-2022 Chloride [Moles/Vol] 105 mmol/L 95-114 [facility] Comprehensive Metabolic Pane samy 10-16-2022 Albumin [Mass/Vol] 4.193594 g/dL Normal 3.2-5.5 g/dL [facility] Other ALT [Catalytic activity/Vol] 17 U/L Normal 10-60 U/L [facility] Other Bilirubin [Mass/Vol] 0.7905460 mg/dL Normal 0.3- 1.2 mg/dL [facility] Other Calcium [Mass/Vol] 9.8286871 mg/dL Normal 8.2-10 .2 mg/dL [facility] Other CO2 [Moles/Vol] 22.83999654 mmol/L Normal 22.0-3 0.0 mmol/L [facility] Other Creatinine [Mass/Vol] 0.40935764 mg/dL Normal 0. 44-1.03 mg/dL [facility] Other Potassium [Moles/Vol] 4.67949872 mmol/L Normal 3 .5-5.1 mmol/L [facility] Other Protein [Mass/Vol] 6.684162 g/dL Normal 6.1-7.9 g/dL [facility] Other Comprehensive Metabolic Panel > 60 [facility] Other Comprehensive Metabolic Panel 2.5 g/dL [facility] Other Creatinine and Glomerular fi ltration rate.predicted panel (S/P/Bld)Ordered By: Ofelia Hester on 10-16-2022 Creatinine [Mass/Vol] 0.55 mg/dL 0.44-1.03 [facility] Estimated glomerular filtrat ion rate (GFR) non- AmericanOrdered By: Ofelia Hester on 10-16-2022 GFR/1.73 sq M.predicted among non-blacks MDRD (S/P/Bld) [Vol rate/Area] > 60 mL/Min [facility] Globulin Calc (S) [Mass/Vol] Ordered By: Ofelia Hester on 10-16-2022 Globulin (S) [Mass/Vol] 2.5 g/dL [facility] Glucose [Mass/volume] in Ser um or PlasmaOrdered By: Ofelia Hester on 10-16-2022 Glucose [Mass/Vol] 86 mg/dL 70-100 [facility] Comment on above: ADA recommended refe rence rangeRandom Glucose Reference Range is dependent on time and content of last meal. Glucose of more than 200 mg/dL in a nonstressed, ambulatory subject supports the diagnosis of Diabetes Mellitus. Laboratory - Chemistry and C hemistry - challengeOrdered By: Ofelia Hester on 10-16-2022 Lipase [Catalytic activity/Vol] 35.0 U/L 22-51 [facility] Lipaseon 10-16-2022 Lipase [Catalytic activity/Vol] 35.94042 U/L Normal 22-51 U/L [facility] Other No Panel InformationOrdered By: Ofelia Hester on 10-16-2022 Estimated GFR () > 60 mL/Min [facility] Comment on above: GFR estimated refere nce range: According to KDOQI guidelines, <60 ml/min/1.73m2 is sufficient to diagnose a patient with chronic kidney disease. Pharmacy Creatinine Clearance (Chem N/A [facility] Potassium [Moles/volume] in Serum or PlasmaOrdered By: Ofelia Hester on 10-16-2022 Potassium [Moles/Vol] 4.3 mmol/L 3.5-5.1 [facility] Protein [Mass/volume] in Ser um or PlasmaOrdered By: Ofelia Hester on 10-16-2022 Protein [Mass/Vol] 6.6 g/dL 6.1-7.9 [facility] Serum or plasma alanine galaviz otransferase measurement without P-5'-P (enzymatic activiOrdered By: Ofelia Hester on 10-16-2022 ALT No additional P-5'-P [Catalytic activity/Vol] 17 U/L 10-60 [facility] Serum or plasma albumin/glob ulin mass ratioOrdered By: Ofelia Hester on 10-16-2022 Albumin/Globulin [Mass ratio] 1.6 {ratio} [facility] Serum or plasma anion gap de terminationOrdered By: Ofelia Hester on 10-16-2022 Anion gap [Moles/Vol] 13.2 mmol/L 6.0-15.0 [facility] Sodium [Moles/volume] in Ser um or PlasmaOrdered By: Ofelia Hester on 10-16-2022 Sodium [Moles/Vol] 136 mmol/L 136-146 [facility] Urea nitrogen [Mass/volume] in Serum or PlasmaOrdered By: Ofelia Hester on 10-16-2022 Urea nitrogen [Mass/Vol] 11 mg/dL 9- [facility] T4 FREE/FREE THYROXon 2021 Free T4 [Mass/Vol] 1.3 ng/dL 0.9 - 1.7 ng/dL [facility] TSH BLDon 07-14-2022 TSH Qn 2.480 m[IU]/L 0.270 - 4.200 mIU/L [facility] VITAMIN B12 BLOODon 07-14-20 Cobalamin (Vitamin B12) [Mass/Vol] 267 pg/mL 232 - 1,245 pg/mL [facility] Quick Fluon 06-04-2022 FLUAV Ab CF (S) [Titer] Negative [facility] Other FLUBV Ab CF (S) [Titer] Negative [facility] Other Quick Strepon 06-04-2022 S. pyogenes Org specific cx Ql (Throat) Negative [facility] Other Quick Strep [facility] Other SARS-CoV-2 (COVID-19) RNA NA A+probe Ql (Resp)on 06-04-2022 SARS-CoV-2 (COVID-19) RNA LAUREN+probe Ql (Unsp spec) Negative [facility] Other TSH DL <= 0.005 mIU/L QnOrde red By: Darwin Jones on 04-14-2022 TSH Qn 6.39 m[IU]/L 0.45-5.33 [facility] Thyroxine (T4) free [Mass/vo lume] in Serum or PlasmaOrdered By: Darwin Jones on 04-14-2022 Free T4 [Mass/Vol] 0.82 ng/dL 0.61-1.12 [facility] Triiodothyronine (T3) Free [ Mass/volume] in Serum or PlasmaOrdered By: Darwin Jones on 04-14-2022 Free T3 [Mass/Vol] 4.08 pg/mL 2.50-3.90 [facility] Serum or plasma calcium luis urement (mass/volume)Ordered By: Saad Valera on 04-06-2022 Calcium [Mass/Vol] 9.4 mg/dL 8.2-10.2 [facility] Serum or plasma intact parat hyroid hormone measurement (mass/volume)Ordered By: Saad Valera on 04-06-2022 Parathyrin.intact [Mass/Vol] 54.8 pg/mL 12 [facility] CHEMISTRYOrdered By: Lab ROP User on 02-18-2022 Glucose [Mass/Vol] 106 mg/dL High 55 - 99 mg/dL [facility] POC Subsection Comment on above: Result Comment: Aurelia breana Meter POC Device SN [id number] Invalid Interpretation Code [facility] POC Subsection POC User ID [id number] Invalid Interpretation Code [facility] POC Subsection POC Username OBINNA EPPERSON Invalid Interpretation Code [facility] P[facility] Subsection Serum or plasma thyroglobuli n antibody assay (units/volume)Ordered By: Darwin Jones on 02-13-2022 Thyroglobulin Ab Qn 971.2 [IU]/mL 0.0-0.9 [facility] Comment on above: Thyroglobulin Antibo dy measured by [employer] Methodology Performed at: [facility] [address] [id number] Hospital Librarian: Alexis Ashton PhD, Phone: [phone] Serum or plasma thyroperoxid ase antibody assay (units/volume)Ordered By: Darwin Jones on 02-13-2022 TPO Ab Qn 327 [IU]/mL 0-34 [facility] Thyroxine (T4) free [Mass/vo lume] in Serum or PlasmaOrdered By: Darwin Jones on 02-13-2022 Free T4 [Mass/Vol] 0.66 ng/dL 0.61-1.12 [facility] Triiodothyronine (T3) Free [ Mass/volume] in Serum or PlasmaOrdered By: Darwin Jones on 02-13-2022 Free T3 [Mass/Vol] 4.04 pg/mL 2.50-3.90 [facility] Albumin [Mass/volume] in Ser um or PlasmaOrdered By: Addi Ortega on 02-10-2022 Albumin [Mass/Vol] 4.1 g/dL 3.2-5.5 [facility] Basophils Auto (Bld) [#/Vol] Ordered By: Addi Ortega on 02-10-2022 Basophils (Bld) [#/Vol] 0.0 10*3/uL 0.0-0.2 [facility] Basophils/100 WBC Auto (Bld) Ordered By: Addi Ortega on 02-10-2022 Basophils/100 WBC (Bld) 0.4 % . [facility] Blood hemoglobin measurement (mass/volume)Ordered By: Addi Ortega on 02-10-2022 Hemoglobin (Bld) [Mass/Vol] 14.1 g/dL 11.8-15.4 [facility] Blood leukocytes automated c ount (number/volume)Ordered By: Addi Ortega on 02-10-2022 WBC (Bld) [#/Vol] 7.3 10*3/uL 4.5-11.0 [facility] Cholesterol [Mass/volume] in Serum or PlasmaOrdered By: Addi Ortega on 02-10-2022 Cholesterol [Mass/Vol] 195 mg/dL 140-200 [facility] Comment on above: Chol less than 200 m g/dl low risk Chol 201-239 mg/dl borderline risk Chol 240 mg/dl and greater high risk Cholesterol in LDL Calc [Mas s/Vol]Ordered By: Addi Ortega on 02-10-2022 Cholesterol in LDL [Mass/Vol] 113 mg/dL 0-100 [facility] Comment on above: LDL ATP III CLASSIFI CATION LDL less than 100 mg/dL Optimal LDL 100-129 mg/dL Near or above optimal LDL 130-159 mg/dL Borderline high LDL 160-189 mg/dL High LDL greater than 189 mg/dL Very high Cholesterol in VLDL Calc [Ma ss/Vol]Ordered By: Addi Ortega on 02-10-2022 Cholesterol in VLDL [Mass/Vol] 26 mg/dL [facility] Creatinine and Glomerular fi ltration rate.predicted panel (S/P/Bld)Ordered By: Addi Ortega on 02-10-2022 Creatinine [Mass/Vol] 0.71 mg/dL 0.44-1.03 [facility] Eosinophils Auto (Bld) [#/Vo l]Ordered By: Addi Ortega on 02-10-2022 Eosinophils (Bld) [#/Vol] 0.1 10*3/uL 0.0-0.45 [facility] Eosinophils/100 WBC Auto (Bl d)Ordered By: Addi Ortega on 02-10-2022 Eosinophils/100 WBC (Bld) 1.5 % . [facility] Erythrocyte distribution wid th Auto (RBC) [Ratio]Ordered By: Addi Ortega on 02-10-2022 Erythrocyte distribution width (RBC) [Ratio] 14.0 % 11.9-15.3 [facility] Estimated glomerular filtrat ion rate (GFR) non- AmericanOrdered By: Addi Ortega on 02-10-2022 GFR/1.73 sq M.predicted among non-blacks MDRD (S/P/Bld) [Vol rate/Area] > 60 mL/Min [facility] Globulin Calc (S) [Mass/Vol] Ordered By: Addi Ortega on 02-10-2022 Globulin (S) [Mass/Vol] 2.8 g/dL [facility] Hematocrit Auto (Bld) [Volum e fraction]Ordered By: Addi Ortega on 02-10-2022 Hematocrit (Bld) [Volume fraction] 40.3 % 34.0-46.4 [facility] Laboratory - Chemistry and C hemistry - challengeOrdered By: Addi Ortega on 02-10-2022 Glucose [Mass/Vol] 90 mg/dL 70-100 [facility] Laboratory - Hematology and Cell countsOrdered By: Addi Ortega on 02-10-2022 Nucleated RBC/100 WBC (Bld) [Ratio] 0.1 % 0-0.5 [facility] Lymphocytes Auto (Bld) [#/Vo l]Ordered By: Addi Ortega on 02-10-2022 Lymphocytes (Bld) [#/Vol] 3.3 10*3/uL 1.00-4.8 [facility] Lymphocytes/100 WBC Auto (Bl d)Ordered By: Addi Ortega on 02-10-2022 Lymphocytes/100 WBC (Bld) 45.2 % . [facility] MCH Auto (RBC) [Entitic mass ]Ordered By: Addi Ortega on 02-10-2022 MCH (RBC) [Entitic mass] 33.0 pg 24.7-34.3 [facility] MCHC Auto (RBC) [Mass/Vol]Or dered By: Addi Ortega on 02-10-2022 MCHC (RBC) [Mass/Vol] 34.9 g/dL 32.0-35.0 [facility] MCV Auto (RBC) [Entitic vol] Ordered By: Addi Ortega on 02-10-2022 MCV (RBC) [Entitic vol] 94.6 fL 80-100 [facility] Monocyte %Ordered By: Addi Ortega on 02-10-2022 Monocyte % 134 mg/dL 35-149 [facility] Comment on above: TRIG ATP III CLASSIF ICATION TRIG less than 150 mg/dL Normal TRIG 150-199 mg/dL Borderline high TRIG 200-500 mg/dL High TRIG greater than 500 mg/dL Very high Standard traceable to the Center for Disease Conrtrol and Prevention (CDC) test method. Monocytes Auto (Bld) [#/Vol] Ordered By: Addi Ortega on 02-10-2022 Monocytes (Bld) [#/Vol] 0.5 10*3/uL 0.0-0.8 [facility] Monocytes/100 WBC Auto (Bld) Ordered By: Addi Ortega on 02-10-2022 Monocytes/100 WBC (Bld) 6.3 % . [facility] Neutrophils Auto (Bld) [#/Vo l]Ordered By: Addi Ortega on 02-10-2022 Neutrophils (Bld) [#/Vol] 3.4 10*3/uL 1.8-7.7 [facility] Neutrophils/100 WBC Auto (Bl d)Ordered By: Addi Ortega on 02-10-2022 Neutrophils/100 WBC (Bld) 46.6 % . [facility] No Panel InformationOrdered By: Addi Ortega on 02-10-2022 Estimated GFR () > 60 mL/Min [facility] Comment on above: GFR estimated refere nce range: According to KDOQI guidelines, <60 ml/min/1.73m2 is sufficient to diagnose a patient with chronic kidney disease. Nicotine Metabolite Negative Cutoff=25 [facility] Comment on above: Performed at: [facility] [address] [id number] Hospital Librarian: Catherine Mendoza MD, Phone: [phone] Pharmacy Creatinine Clearance (Chem N/A [facility] Platelet mean volume Auto (B ld) [Entitic vol]Ordered By: Addi Ortega on 02-10-2022 Platelet mean volume (Bld) [Entitic vol] 8.4 fL 6.3-10.7 [facility] Platelets Auto (Bld) [#/Vol] Ordered By: Addi Ortega on 02-10-2022 Platelets (Bld) [#/Vol] 321 10*3/uL 150-450 [facility] Protein [Mass/volume] in Ser um or PlasmaOrdered By: Addi Ortega on 02-10-2022 Protein [Mass/Vol] 6.9 g/dL 6.1-7.9 [facility] RBC Auto (Bld) [#/Vol]Ordere d By: Addi Ortega on 02-10-2022 RBC (Bld) [#/Vol] 4.26 10*6/uL 3.60-5.00 [facility] Serum or plasma alanine galaviz otransferase measurement without P-5'-P (enzymatic activiOrdered By: Addi Ortega on 02-10-2022 ALT No additional P-5'-P [Catalytic activity/Vol] 26 U/L 10-60 [facility] Serum or plasma albumin/glob ulin mass ratioOrdered By: Addi Ortega on 02-10-2022 Albumin/Globulin [Mass ratio] 1.5 {ratio} [facility] Serum or plasma alkaline hosea sphatase measurement (enzymatic activity/volume)Ordered By: Addi Ortega on 02-10-2022 ALP [Catalytic activity/Vol] 47 U/L 32-92 [facility] Serum or plasma aspartate am inotransferase measurement (enzymatic activity/volume)Ordered By: Addi Ortega on 02-10-2022 AST [Catalytic activity/Vol] 18 U/L 10-42 [facility] Serum or plasma calcium luis urement (mass/volume)Ordered By: Addi Ortega on 02-10-2022 Calcium [Mass/Vol] 9.3 mg/dL 8.2-10.2 [facility] Serum or plasma chloride radha surement (moles/volume)Ordered By: Addi Ortega on 02-10-2022 Chloride [Moles/Vol] 99 mmol/L 95-114 [facility] Serum or plasma high density lipoprotein (HDL) cholesterol measurementOrdered By: Addi Ortega on 02-10-2022 Cholesterol in HDL [Mass/Vol] 55 mg/dL 35-85 [facility] Comment on above: HDL CHOL ATP-III CLA SSIFICATION Cardiovascular Risk HDL > or equal to 60 mg/dL LOW HDL < 40 mg/dL HIGH Serum or plasma potassium me asurement (moles/volume)Ordered By: Addi Ortega on 02-10-2022 Potassium [Moles/Vol] 4.1 mmol/L 3.5-5.1 [facility] Serum or plasma sodium measu rement (moles/volume)Ordered By: Addi Ortega on 02-10-2022 Sodium [Moles/Vol] 135 mmol/L 136-146 [facility] Serum or plasma total biliru bin measurement (mass/volume)Ordered By: Addi Ortega on 02-10-2022 Bilirubin [Mass/Vol] 0.7 mg/dL 0.3-1.2 [facility] Serum or plasma total carbon dioxide measurement (moles/volume)Ordered By: Addi Ortega on 02-10-2022 CO2 [Moles/Vol] 23.3 mmol/L 22.0-30.0 [facility] Serum or plasma total choles terol/high density lipoprotein (HDL) cholesterol mass ratOrdered By: Addi Ortega on 02-10-2022 Cholesterol.total/Cho lesterol in HDL [Mass ratio] 3.5 {ratio} <5.0 [facility] Serum or plasma urea nitroge n measurement (mass/volume)Ordered By: Addi Ortega on 02-10-2022 Urea nitrogen [Mass/Vol] 17 mg/dL 9-23 [facility] TSH DL <= 0.005 mIU/L QnOrde red By: Addi Ortega on 02-10-2022 TSH Qn 57.67 m[IU]/L 0.45-5.33 [facility] No Panel Informationon 09-03 6 {mm/hr} Normal 0-34 -[facility] [address] DO Work Phone: [...] Vital Signs Recorded: 03Sep2021 10:02AMRecorded: 03Sep2021 09:55AM [id number], LUE, Kptiuus156, RUE, Sitting [id number], LUE, [id number], RUE, Sitting Heart Rate72, Apical Height5 ft 7 in [id number] lb 9.6 oz BMI Oacfsjfibi64.36 kg/m2 BSA Calculated2.05 Tobacco Useb) No EKG [...] . Sign (more content not included)... Normal [facility] Tobacco Screening.on 022 Tobacco use status [facility] b) No -[facility] [address] DO Work Phone: Vital Signs Date Time Vital Sign Value Performing Clinician Facility 09-19-2024 14:33-0500 Body mass index (BMI) [Ratio] 39.49 kg/m2 Brain Seamus DO Work Phone: [facility] 09-19-2024 14:33-0500 Body weight 114.36 kg Brain Seamus DO Work Phone: [facility] 09-19-2024 14:33-0500 Diastolic blood pressure 70 mm[Hg] Brain Seamus DO Work Phone: [facility] 09-19-2024 14:33-0500 Systolic blood pressure 120 mm[Hg] Brain Seamus DO Work Phone: [facility] 09-07-2024 14:44-0500 Body mass index (BMI) [Ratio] 39.75 kg/m2 Mya MCMILLAN Work Phone: [facility] 09-07-2024 14:44-0500 Body weight 115.12 kg Mya MCMILLAN Work Phone: [facility] 09-07-2024 14:44-0500 Diastolic blood pressure 82 mm[Hg] Mya MCMILLAN Work Phone: [facility] 09-07-2024 14:44-0500 Systolic blood pressure 120 mm[Hg] Mya MCMILLAN Work Phone: [facility] 09-06-2024 14:04-0500 Body temperature 97.88 [degF] Flash Franco [facility] 09-06-2024 14:04-0500 Diastolic blood pressure 77 mm[Hg] Flash Franco [facility] 09-06-2024 14:04-0500 Heart rate 101 /min Flash Franco [facility] 09-06-2024 14:04-0500 Respiratory rate 18 /min Flash Franco [facility] 09-06-2024 14:04-0500 SaO2% (BldA) [Mass fraction] 99 % Flash Franco [facility] 09-06-2024 14:04-0500 Systolic blood pressure 122 mm[Hg] Flash Franco [facility] 09-05-2024 15:45-0500 Hourly Rounding Rogelio Nath [facility] Comment on above: Result Comment: discharge instructions g darek. monitors off and pt up to dress. 09-05-2024 15:35-0500 Hourly Rounding Rogelio Pham [facility] Comment on above: Result Comment: pt was able to keep spri te and lemon ice down. Wants to go home. 09-05-2024 14:49-0500 Hourly Rounding Rogelio Pham [facility] Comment on above: Result Comment: sprite, lemon ice and ju ice given per pt request. 09-05-2024 07:35-0500 Body temperature 98.24 [degF] Rogelio Nath [facility] 09-05-2024 07:35-0500 Diastolic blood pressure 42 mm[Hg] Rogelio Nath [facility] 09-05-2024 07:35-0500 Heart rate 109 /min Rogelio Nath [facility] 09-05-2024 07:35-0500 Mean blood pressure 65 mm[Hg] Rogelio Nath [facility] 09-05-2024 07:35-0500 Respiratory rate 18 /min Rogelio Nath [facility] 09-05-2024 07:35-0500 Systolic blood pressure 111 mm[Hg] Rogelio Nath [facility] 09-05-2024 07:30-0500 Blood Pressure Location Rogelio Nath [facility] 09-05-2024 04:32-0500 Blood Pressure Location Rogelio Nath [facility] 09-05-2024 04:32-0500 Body temperature 98.24 [degF] Rogelio Nath [facility] 09-05-2024 04:32-0500 Diastolic blood pressure 72 mm[Hg] Rogelio Nath [facility] 09-05-2024 04:32-0500 Heart rate 104 /min Rogelio Nath [facility] 09-05-2024 04:32-0500 Mean blood pressure 90 mm[Hg] Rogelio Nath [facility] 09-05-2024 04:32-0500 Respiratory rate 16 /min Rogelio Nath [facility] 09-05-2024 04:32-0500 SaO2% (BldA) [Mass fraction] 98 % Rogelio Nath [facility] 09-05-2024 04:32-0500 Systolic blood pressure 127 mm[Hg] Rogelio Nath [facility] 09-05-2024 04:00-0500 Diastolic blood pressure 64 mm[Hg] Rogelio Nath [facility] 09-05-2024 04:00-0500 Heart rate 115 /min Rogelio Nath [facility] 09-05-2024 04:00-0500 Mean blood pressure 86 mm[Hg] Rogelio Nath [facility] 09-05-2024 04:00-0500 Systolic blood pressure 129 mm[Hg] Rogelio Nath [facility] 09-05-2024 03:06-0500 Body temperature 97.7 [degF] Rogelio Nath [facility] 09-05-2024 03:06-0500 Heart rate 128 /min Rogelio Nath [facility] 09-05-2024 03:06-0500 Respiratory rate 20 /min Rogelio Nath [facility] 09-05-2024 03:06-0500 SaO2% (BldA) [Mass fraction] 98 % Rogelio Nath [facility] 08-25-2024 12:21-0500 Body height 170.18 cm 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 Work Phone: [facility] 08-25-2024 12:21-0500 Body mass index (BMI) [Ratio] 39.6 kg/m2 [facility] 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 Work Phone: [facility] 08-25-2024 12:21-0500 Body weight 114.75 kg Darwin Laraboone 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 Work Phone: [facility] 08-25-2024 12:21-0500 Diastolic blood pressure 84 mm[Hg] [facility] 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 Work Phone: [facility] 08-25-2024 12:21-0500 Heart rate 108 /min Darwin Easterwood 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 Work Phone: [facility] 08-25-2024 12:21-0500 Respiratory rate 18 /min Darwin Easterwood 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 Work Phone: [facility] 08-25-2024 12:21-0500 SaO2% (BldA) [Mass fraction] 98 % Darwin Easterwood 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 Work Phone: [facility] 08-25-2024 12:21-0500 Systolic blood pressure 132 mm[Hg] Darwin Easterwood 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 Work Phone: [facility] 08-23-2024 11:00-0500 Body mass index (BMI) [Ratio] 40.16 kg/m2 Brain Seamus DO Work Phone: [facility] 08-23-2024 11:00-0500 Body weight 116.3 kg Brain Seamus DO Work Phone: [facility] 08-23-2024 11:00-0500 Diastolic blood pressure 78 mm[Hg] Brain Seamus DO Work Phone: [facility] 08-23-2024 11:00-0500 Systolic blood pressure 120 mm[Hg] Brain Seamus DO Work Phone: [facility] 07-11-2024 13:09-0500 Body mass index (BMI) [Ratio] 38.97 kg/m2 Brain Seamus DO Work Phone: [facility] 07-11-2024 13:09-0500 Body weight 112.86 kg Brain Seamus DO Work Phone: [facility] 07-11-2024 13:09-0500 Diastolic blood pressure 76 mm[Hg] Brain Seamus DO Work Phone: [facility] 07-11-2024 13:09-0500 Systolic blood pressure 120 mm[Hg] Brain Seamus DO Work Phone: [facility] 06-28-2024 08:04-0500 Body weight Darwin Jones 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 Work Phone: [facility] Comment on above: Not provided. 2024 14:13-0500 Diastolic blood pressure 78 mm[Hg] Hayden Reilly MD Work Phone: [facility] 2024 14:13-0500 Heart rate 88 /min Hayden Reilly MD Work Phone: [facility] 2024 14:13-0500 Systolic blood pressure 125 mm[Hg] Hayden Reilly MD Work Phone: [facility] 2024 13:18-0500 Body height 170.2 cm Hayden Reilly MD Work Phone: [facility] 06-12-2024 10:19-0400 Body mass index (BMI) [Ratio] 38.37 kg/m2 Brain Seamus DO Work Phone: [facility] 06-12-2024 10:19-0400 Body weight 111.13 kg Brain Seamus DO Work Phone: [facility] 06-12-2024 10:19-0400 Diastolic blood pressure 80 mm[Hg] Brain Seamus DO Work Phone: [facility] 06-12-2024 10:19-0400 Systolic blood pressure 122 mm[Hg] Brain Seamus DO Work Phone: [facility] 05-11-2024 11:04-0400 Body height 170.18 cm 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 Darwin Joneserwood Work Phone: [facility] 05-11-2024 11:04-0400 Body mass index (BMI) [Ratio] 38.2 kg/m2 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 Darwin Easterwood Work Phone: [facility] 05-11-2024 11:04-0400 Body temperature 97.8 [degF] 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 Darwin Joneserjillian Work Phone: [facility] 05-11-2024 11:04-0400 Body weight 110.67 kg 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 Darwin Joneserjillian Work Phone: [facility] 05-11-2024 11:04-0400 Diastolic blood pressure 74 mm[Hg] 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 Darwin Roberterjillian Work Phone: [facility] 05-11-2024 11:04-0400 Heart rate 90 /min 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 Darwin Joneserjillian Work Phone: [facility] 05-11-2024 11:04-0400 Respiratory rate 20 /min 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 Darwin Joneserjillian Work Phone: [facility] 05-11-2024 11:04-0400 SaO2% (BldA) [Mass fraction] 98 % 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 Darwin Joneserjillian Work Phone: [facility] 05-11-2024 11:04-0400 Systolic blood pressure 126 mm[Hg] 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 Darwin Joneserjillian Work Phone: [facility] 05-10-2024 13:50-0400 Body mass index (BMI) [Ratio] 38.39 kg/m2 Brain Seamus DO Work Phone: [facility] 05-10-2024 13:50-0400 Body weight 111.19 kg Brain Seamus DO Work Phone: [facility] 05-10-2024 13:50-0400 Diastolic blood pressure 76 mm[Hg] Brain Seamus DO Work Phone: [facility] 05-10-2024 13:50-0400 Systolic blood pressure 120 mm[Hg] Brain Seamus DO Work Phone: [facility] 04-20-2024 10:37-0400 Body mass index (BMI) [Ratio] 38.53 kg/m2 Brain Seamus DO Work Phone: [facility] 04-20-2024 10:37-0400 Body weight 111.58 kg Brain Seamus DO Work Phone: [facility] 04-20-2024 10:37-0400 Diastolic blood pressure 76 mm[Hg] Brain Seamus DO Work Phone: [facility] 04-20-2024 10:37-0400 Systolic blood pressure 122 mm[Hg] Brain Seamus DO Work Phone: [facility] 04-07-2024 09:42-0400 Body mass index (BMI) [Ratio] 38.86 kg/m2 [facility] Nurse [facility] 04-07-2024 09:42-0400 Body weight 112.55 kg [facility] Nurse [facility] 04-07-2024 09:42-0400 Diastolic blood pressure 70 mm[Hg] [facility] Nurse [facility] 04-07-2024 09:42-0400 Systolic blood pressure 120 mm[Hg] [facility] Nurse [facility] 03-18-2024 11:50-0400 Diastolic blood pressure 83 mm[Hg] Toan Steine [facility] 03-18-2024 11:50-0400 Heart rate 75 /min Toan Steine [facility] 03-18-2024 11:50-0400 Mean blood pressure 97 mm[Hg] Toan Steine [facility] 03-18-2024 11:50-0400 Respiratory rate 16 /min Toan Steine [facility] 03-18-2024 11:50-0400 SaO2% (BldA) [Mass fraction] 98 % Toan Jaya [facility] 03-18-2024 11:50-0400 Systolic blood pressure 126 mm[Hg] Toan Jaya [facility] 03-18-2024 09:46-0400 Hourly Rounding Toan Steine [facility] 03-18-2024 09:11-0400 Hourly Rounding [place] [facility] 03-18-2024 08:10-0400 Body temperature 98.6 [degF] [place] [facility] 03-18-2024 08:10-0400 Diastolic blood pressure 91 mm[Hg] [place] [facility] 03-18-2024 08:10-0400 Heart rate 98 /min [place] [facility] 03-18-2024 08:10-0400 Hourly Rounding [place] [facility] 03-18-2024 08:10-0400 Respiratory rate 17 /min [place] [facility] 03-18-2024 08:10-0400 SaO2% (BldA) [Mass fraction] 98 % [place] [facility] 03-18-2024 08:10-0400 Systolic blood pressure 135 mm[Hg] [place] [facility] 01-25-2024 08:59-0400 Body height 170.18 cm 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Alayna Orosco [employer] Work Phone: [facility] 01-25-2024 08:59-0400 Body mass index (BMI) [Ratio] 37.4 kg/m2 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Alayna Edgara [employer] Work Phone: [facility] 01-25-2024 08:59-0400 Body temperature 98 [degF] 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 Darwin [employer] Work Phone: [facility] 01-25-2024 08:59-0400 Body weight 108.4 kg 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Alayna Orosco [employer] Work Phone: [facility] 01-25-2024 08:59-0400 Diastolic blood pressure 80 mm[Hg] 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 Darwin Easterwood Work Phone: [facility] 01-25-2024 08:59-0400 Heart rate 98 /min 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 Darwin Easterwood Work Phone: [facility] 01-25-2024 08:59-0400 Respiratory rate 20 /min 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 Darwin Easterwood Work Phone: [facility] 01-25-2024 08:59-0400 SaO2% (BldA) [Mass fraction] 99 % 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 Darwin Easterwood Work Phone: [facility] 01-25-2024 08:59-0400 Systolic blood pressure 122 mm[Hg] 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 Darwin Easterwood Work Phone: [facility] 12-24-2023 09:56-0400 Body height 170.18 cm 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 Darwin Easterwood Work Phone: [facility] 12-24-2023 09:56-0400 Body mass index (BMI) [Ratio] 37.7 kg/m2 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 Darwin Easterwood Work Phone: [facility] 12-24-2023 09:56-0400 Body temperature 97.6 [degF] 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 Darwin Easterwood Work Phone: [facility] 12-24-2023 09:56-0400 Body weight 109.31 kg 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 Darwin Easterwood Work Phone: [facility] 12-24-2023 09:56-0400 Diastolic blood pressure 84 mm[Hg] 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 Darwin Easterwood Work Phone: [facility] 12-24-2023 09:56-0400 Heart rate 102 /min 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 Darwin Easterwood Work Phone: [facility] 12-24-2023 09:56-0400 Respiratory rate 20 /min 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 Darwin Easterwood Work Phone: [facility] 12-24-2023 09:56-0400 SaO2% (BldA) [Mass fraction] 98 % 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Alayna Joneserjillian Work Phone: [facility] 12-24-2023 09:56-0400 Systolic blood pressure 126 mm[Hg] 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 Darwin Easterwood Work Phone: [facility] 11-25-2023 09:01-0400 Body height 170.18 cm 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 Darwin Joneserjillian Work Phone: [facility] 11-25-2023 09:01-0400 Body mass index (BMI) [Ratio] 37.7 kg/m2 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Alayna Joneserjillian Work Phone: [facility] 11-25-2023 09:01-0400 Body temperature 97 [degF] 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Alayna Joneserjillian Work Phone: [facility] 11-25-2023 09:01-0400 Body weight 109.31 kg 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Alayna Joneserjillian Work Phone: [facility] 11-25-2023 09:01-0400 Diastolic blood pressure 76 mm[Hg] 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Alayna Joneserjillian Work Phone: [facility] 11-25-2023 09:01-0400 Heart rate 95 /min 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 Darwin Joneserjillian Work Phone: [facility] 11-25-2023 09:01-0400 Respiratory rate 20 /min 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 Darwin Easterjillian Work Phone: [facility] 11-25-2023 09:01-0400 SaO2% (BldA) [Mass fraction] 98 % 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Alayna Orosco Easterwood Work Phone: [facility] 11-25-2023 09:01-0400 Systolic blood pressure 120 mm[Hg] 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 Darwin Easterwood Work Phone: [facility] 11-18-2023 08:03-0400 Body weight 110.68 kg Ruby Whittington MD Work Phone: [facility] 11-18-2023 08:03-0400 Diastolic blood pressure 92 mm[Hg] Ruby Whittington MD Work Phone: [facility] 11-18-2023 08:03-0400 Heart rate 100 /min Ruby Whittington MD Work Phone: [facility] 11-18-2023 08:03-0400 Systolic blood pressure 132 mm[Hg] Ruby Whittington MD Work Phone: [facility] 10-20-2023 09:05-0500 Body height 170.18 cm 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Alayna Orosco [employer] Work Phone: [facility] 10-20-2023 09:05-0500 Body mass index (BMI) [Ratio] 38.3 kg/m2 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 Darwin Easterjillian Work Phone: [facility] 10-20-2023 09:05-0500 Body temperature 98 [degF] 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 Darwin Easterjillian Work Phone: [facility] 10-20-2023 09:05-0500 Body weight 111.13 kg 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 Darwin Easterjillian Work Phone: [facility] 10-20-2023 09:05-0500 Diastolic blood pressure 78 mm[Hg] 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 Darwin Easterwood Work Phone: [facility] 10-20-2023 09:05-0500 Heart rate 82 /min 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 Drawin Easterwood Work Phone: [facility] 10-20-2023 09:05-0500 Respiratory rate 20 /min 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 Darwin Easterwood Work Phone: [facility] 10-20-2023 09:05-0500 SaO2% (BldA) [Mass fraction] 98 % 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 Darwin Easterwood Work Phone: [facility] 10-20-2023 09:05-0500 Systolic blood pressure 124 mm[Hg] SHIRLEY Jones Work Phone: [facility] 09-29-2023 10:41-0500 Blood Pressure Location [facility] 09-29-2023 10:41-0500 Body temperature 98.24 [degF] [facility] 09-29-2023 10:41-0500 Diastolic blood pressure 78 mm[Hg] [facility] 09-29-2023 10:41-0500 Heart rate 95 /min [facility] 09-29-2023 10:41-0500 SaO2% (BldA) [Mass fraction] 97 % [facility] 09-29-2023 10:41-0500 Systolic blood pressure 122 mm[Hg] [facility] 09-21-2023 09:00-0500 Body height 170.18 cm Darwin [employer] Other [employer] Other 09-21-2023 09:00-0500 Body mass index (BMI) [Ratio] 38.37 kg/m2 [employer] Other [employer] Other 09-21-2023 09:00-0500 Body temperature 98 [degF] Darwin Aledade Other [employer] Other 09-21-2023 09:00-0500 Body weight 111.13 kg Darwin Easterwood Other [employer] Other 09-21-2023 09:00-0500 Diastolic blood pressure 84 mm[Hg] Darwin Easterwood Other [employer] Other 09-21-2023 09:00-0500 Respiratory rate 20 /min Darwin Easterwood Other [employer] Other 09-21-2023 09:00-0500 SaO2% (BldA) [Mass fraction] 98 % Darwin Easterwood Other [employer] Other 09-21-2023 09:00-0500 Systolic blood pressure 126 mm[Hg] Darwin Easterwood Other [employer] Other 08-25-2023 09:30-0500 Body height 170.18 cm Darwin Easterwood Other [facility] 08-25-2023 09:30-0500 Body mass index (BMI) [Ratio] 39.46 kg/m2 Darwin Easterwood Other [employer] Other 08-25-2023 09:30-0500 Body temperature 97.6 [degF] Darwin Easterwood Other [employer] Other 08-25-2023 09:30-0500 Body weight 114.31 kg Darwin Easterwood Other [employer] Other 08-25-2023 09:30-0500 Body weight 114.3 kg 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 Darwin Easterwood Work Phone: [facility] 08-25-2023 09:30-0500 Diastolic blood pressure 80 mm[Hg] Darwin Easterwood Other [facility] 08-25-2023 09:30-0500 Respiratory rate 20 /min Darwin Easterwood Other [employer] Other 08-25-2023 09:30-0500 SaO2% (BldA) [Mass fraction] 98 % Darwin Easterwood Other [employer] Other 08-25-2023 09:30-0500 Systolic blood pressure 120 mm[Hg] Darwin Easterwood Other [facility] 07-23-2023 09:30-0500 Body height 170.18 cm 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 Darwin Easterwood Work Phone: [facility] 07-23-2023 09:30-0500 Body weight 116.57 kg 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 Darwin Easterwood Work Phone: [facility] 07-23-2023 09:30-0500 Diastolic blood pressure 80 mm[Hg] 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 Darwin Easterwood Work Phone: [facility] 07-23-2023 09:30-0500 Systolic blood pressure 118 mm[Hg] 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 Darwin Easterwood Work Phone: [facility] 06-23-2023 09:30-0500 Body height 170.18 cm Darwin Easterwood Other [employer] Other 06-23-2023 09:30-0500 Body mass index (BMI) [Ratio] 40.4 kg/m2 Darwin Easterwood Other [employer] Other 06-23-2023 09:30-0500 Body temperature 97.4 [degF] Darwin Easterwood Other [employer] Other 06-23-2023 09:30-0500 Body weight 117.03 kg Darwin Easterwood Other [employer] Other 06-23-2023 09:30-0500 Diastolic blood pressure 78 mm[Hg] Darwin Easterwood Other [employer] Other 06-23-2023 09:30-0500 Respiratory rate 20 /min Darwin Easterwood Other [employer] Other 06-23-2023 09:30-0500 SaO2% (BldA) [Mass fraction] 98 % Darwin Easterwood Other [employer] Other 06-23-2023 09:30-0500 Systolic blood pressure 120 mm[Hg] Darwin Easterwood Other [employer] Other 06-08-2023 14:00-0400 Body temperature 97.2 [degF] Francy Gan PA-C Work Phone: [facility] 05-26-2023 10:30-0400 Body height 170.18 cm Darwin Easterwood Other [employer] Other 05-26-2023 10:30-0400 Body mass index (BMI) [Ratio] 41.5 kg/m2 Darwin Easterwood Other [employer] Other 05-26-2023 10:30-0400 Body temperature 98.4 [degF] Darwin Easterwood Other [employer] Other 05-26-2023 10:30-0400 Body weight 120.2 kg Darwin Easterwood Other [employer] Other 05-26-2023 10:30-0400 Diastolic blood pressure 70 mm[Hg] Darwin Easterwood Other [employer] Other 05-26-2023 10:30-0400 Respiratory rate 20 /min Darwin Easterwood Other [employer] Other 05-26-2023 10:30-0400 SaO2% (BldA) [Mass fraction] 97 % Darwin Easterwood Other [employer] Other 05-26-2023 10:30-0400 Systolic blood pressure 112 mm[Hg] Darwin Easterwood Other [employer] Other 04-28-2023 09:15-0400 Body height 170.18 cm Darwin Aledade Other [employer] Other 04-28-2023 09:15-0400 Body mass index (BMI) [Ratio] 41.34 kg/m2 Darwin Easterwood Other [employer] Other 04-28-2023 09:15-0400 Body temperature 97.2 [degF] Darwin Easterwood Other [employer] Other 04-28-2023 09:15-0400 Body weight 119.75 kg Darwin Easterwood Other [employer] Other 04-28-2023 09:15-0400 Diastolic blood pressure 82 mm[Hg] Darwin Easterwood Other [employer] Other 04-28-2023 09:15-0400 Respiratory rate 20 /min Darwin [employer] Other [employer] Other 04-28-2023 09:15-0400 SaO2% (BldA) [Mass fraction] 97 % Darwin Easterwood Other [employer] Other 04-28-2023 09:15-0400 Systolic blood pressure 120 mm[Hg] Darwin Easterwood Other [employer] Other 04-16-2023 11:00-0400 Body height 170.18 cm Darwin Easterwood Other [employer] Other 04-16-2023 11:00-0400 Body mass index (BMI) [Ratio] 41.03 kg/m2 Darwin Easterwood Other [employer] Other 04-16-2023 11:00-0400 Body temperature 97.8 [degF] Darwin Easterwood Other [employer] Other 04-16-2023 11:00-0400 Body weight 118.84 kg Darwin Easterwood Other [employer] Other 04-16-2023 11:00-0400 Diastolic blood pressure 80 mm[Hg] Darwin Easterwood Other [employer] Other 04-16-2023 11:00-0400 Respiratory rate 20 /min Darwin Easterwood Other [employer] Other 04-16-2023 11:00-0400 SaO2% (BldA) [Mass fraction] 98 % Darwin Easterwood Other [employer] Other 04-16-2023 11:00-0400 Systolic blood pressure 120 mm[Hg] Darwin Easterwood Other [facility] [employer] Other 03-22-2023 22:51-0400 Diastolic blood pressure 74 mm[Hg] Kaylinn Dokken [facility] 03-22-2023 22:51-0400 Heart rate 80 /min Kaylinn Dokken [facility] 03-22-2023 22:51-0400 Mean blood pressure 92 mm[Hg] Kaylinn Dokken [facility] 03-22-2023 22:51-0400 Respiratory rate 16 /min Kaylinn Dokken [facility] 03-22-2023 22:51-0400 SaO2% (BldA) [Mass fraction] 98 % Kaylinn Dokken [facility] 03-22-2023 22:51-0400 Systolic blood pressure 128 mm[Hg] Kaylinn Dokken [facility] 03-22-2023 21:24-0400 Heart rate 76 /min Kaylinn Dokken [facility] 03-22-2023 21:24-0400 Respiratory rate 16 /min Kaylinn Dokken [facility] 03-22-2023 21:24-0400 SaO2% (BldA) [Mass fraction] 97 % Kaylinn Dokken [facility] 03-22-2023 19:54-0400 Body temperature 98.06 [degF] Kaylinn Dokken [facility] 03-22-2023 19:54-0400 Diastolic blood pressure 89 mm[Hg] Kaylinn Dokken [facility] 03-22-2023 19:54-0400 Heart rate 81 /min Gabriel Curtis [facility] 03-22-2023 19:54-0400 Respiratory rate 18 /min Gabriel Sellerskken [facility] 03-22-2023 19:54-0400 SaO2% (BldA) [Mass fraction] 99 % Gabriel Curtis [facility] 03-22-2023 19:54-0400 Systolic blood pressure 138 mm[Hg] Gabriel Curtis [facility] 03-22-2023 15:18-0400 Body height 170.18 cm 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 Darwin Easterwood Work Phone: [facility] 03-22-2023 15:18-0400 Body temperature 98.2 [degF] 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 Darwin Easterwood Work Phone: [facility] 03-22-2023 15:18-0400 Body weight 120.5 kg 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 Darwin Easterwood Work Phone: [facility] 03-22-2023 15:18-0400 Diastolic blood pressure 74 mm[Hg] 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 Darwin Easterwood Work Phone: [facility] 03-22-2023 15:18-0400 Heart rate 92 /min 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 Darwin Easterwood Work Phone: [facility] 03-22-2023 15:18-0400 Respiratory rate 20 /min 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 Darwin Easterwood Work Phone: [facility] 03-22-2023 15:18-0400 SaO2% (BldA) [Mass fraction] 97 % 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 Darwin Easterwood Work Phone: [facility] 03-22-2023 15:18-0400 Systolic blood pressure 175 mm[Hg] SHIRLEY Jones Work Phone: [facility] 10-05-2022 09:00-0500 Body height 170.18 cm Ofelia Missler Other [employer] Other 10-05-2022 09:00-0500 Body mass index (BMI) [Ratio] 37.21 kg/m2 Ofelia Missler Other [employer] Other 10-05-2022 09:00-0500 Body weight 107.78 kg Ofelia Missler Other [employer] Other 10-05-2022 09:00-0500 Diastolic blood pressure 45 mm[Hg] Ofelia Missler Other [employer] Other 10-05-2022 09:00-0500 Respiratory rate 18 /min Ofelia Missler Other [employer] Other 10-05-2022 09:00-0500 SaO2% (BldA) [Mass fraction] 97 % Ofelia Missler Other [employer] Other 10-05-2022 09:00-0500 Systolic blood pressure 100 mm[Hg] Ofelia Missler Other [employer] Other 09-02-2022 11:30-0500 Body height 170.18 cm Ofelia Missler Other [employer] Other 09-02-2022 11:30-0500 Body mass index (BMI) [Ratio] 38.04 kg/m2 Ofelia Missler Other [employer] Other 09-02-2022 11:30-0500 Body weight 110.18 kg Ofelia Missler Other [employer] Other 09-02-2022 11:30-0500 Diastolic blood pressure 79 mm[Hg] Ofelia Missler Other [employer] Other 09-02-2022 11:30-0500 Respiratory rate 18 /min Ofelia Missler Other [employer] Other 09-02-2022 11:30-0500 SaO2% (BldA) [Mass fraction] 96 % Ofelia Missler Other [employer] Other 09-02-2022 11:30-0500 Systolic blood pressure 119 mm[Hg] Ofelia Missler Other [employer] Other 08-25-2022 14:00-0500 Body height 170.18 cm Lilly Fitt Other [employer] Other 08-25-2022 14:00-0500 Body mass index (BMI) [Ratio] 38.01 kg/m2 Lilly Fitt Other [employer] Other 08-25-2022 14:00-0500 Body weight 110.09 kg Lilly Fitt Other [employer] Other 07-31-2022 09:45-0500 Body height 170.18 cm Ofelia Missler Other [employer] Other 07-31-2022 09:45-0500 Body mass index (BMI) [Ratio] 38.2 kg/m2 Ofelia Missler Other [employer] Other 07-31-2022 09:45-0500 Body weight 110.63 kg Ofelia Missler Other [employer] Other 07-31-2022 09:45-0500 Diastolic blood pressure 78 mm[Hg] Ofelia Missler Other [employer] Other 07-31-2022 09:45-0500 Respiratory rate 18 /min Ofelia Missler Other [employer] Other 07-31-2022 09:45-0500 SaO2% (BldA) [Mass fraction] 96 % Ofelia Missler Other [employer] Other 07-31-2022 09:45-0500 Systolic blood pressure 135 mm[Hg] Ofelia Missler Other [employer] Other 07-14-2022 08:49-0500 Body height 170.5 cm Ruby Whittington MD Work Phone: [facility] 07-14-2022 08:49-0500 Body weight 111.58 kg Ruby Whittington MD Work Phone: [facility] 07-14-2022 08:49-0500 Diastolic blood pressure 73 mm[Hg] Ruby Whittington MD Work Phone: [facility] 07-14-2022 08:49-0500 Heart rate 92 /min Ruby Whittington MD Work Phone: [facility] 07-14-2022 08:49-0500 Systolic blood pressure 140 mm[Hg] Ruby Whittington MD Work Phone: [facility] 06-17-2022 15:45-0400 Body height 170.18 cm Ofelia Missler Other [employer] Other 06-17-2022 15:45-0400 Body mass index (BMI) [Ratio] 38.99 kg/m2 Ofelia Missler Other [employer] Other 06-17-2022 15:45-0400 Body weight 112.95 kg Ofelia Missler Other [employer] Other 06-17-2022 15:45-0400 Diastolic blood pressure 90 mm[Hg] Ofelia Missler Other [employer] Other 06-17-2022 15:45-0400 Respiratory rate 18 /min Ofelia Missler Other [employer] Other 06-17-2022 15:45-0400 SaO2% (BldA) [Mass fraction] 96 % Ofelia Missler Other [employer] Other 06-17-2022 15:45-0400 Systolic blood pressure 140 mm[Hg] Ofelia Missler Other [employer] Other 06-04-2022 13:00-0400 Body height 170.18 cm Sima Ross Other [employer] Other 06-04-2022 13:00-0400 Body mass index (BMI) [Ratio] 38.37 kg/m2 Sima Ross Other [employer] Other 06-04-2022 13:00-0400 Body temperature 98.6 [degF] Sima Ross Other [employer] Other 06-04-2022 13:00-0400 Body weight 111.13 kg Sima Ross Other [employer] Other 06-04-2022 13:00-0400 Diastolic blood pressure 83 mm[Hg] Micahlouisa Vandana Other [employer] Other 06-04-2022 13:00-0400 Respiratory rate 18 /min Sima Vandana Other [employer] Other 06-04-2022 13:00-0400 SaO2% (BldA) [Mass fraction] 99 % Sima Ross Other [employer] Other 06-04-2022 13:00-0400 Systolic blood pressure 124 mm[Hg] Sima Vandana Other [employer] Other 05-27-2022 12:15-0400 Body height 170.18 cm Lilly Fitt Other [employer] Other 05-18-2022 09:30-0400 Body height 170.18 cm Ofelia Missler Other [employer] Other 05-18-2022 09:30-0400 Body mass index (BMI) [Ratio] 39.37 kg/m2 Ofelia Missler Other [employer] Other 05-18-2022 09:30-0400 Body temperature 98.1 [degF] Ofelia Missler Other [employer] Other 05-18-2022 09:30-0400 Body weight 114.04 kg Ofelia Missler Other [employer] Other 05-18-2022 09:30-0400 Diastolic blood pressure 80 mm[Hg] Ofelia Missler Other [employer] Other 05-18-2022 09:30-0400 Respiratory rate 18 /min Ofelia Missler Other [employer] Other 05-18-2022 09:30-0400 SaO2% (BldA) [Mass fraction] 99 % Ofelia Missler Other [employer] Other 05-18-2022 09:30-0400 Systolic blood pressure 115 mm[Hg] Ofelia Missler Other [employer] Other 04-17-2022 09:30-0400 Body height 170.18 cm Darwin Aledade Other [employer] Other 04-17-2022 09:30-0400 Body mass index (BMI) [Ratio] 39.15 kg/m2 Darwin Aledade Other [employer] Other 04-17-2022 09:30-0400 Body temperature 96.9 [degF] Darwin [employer] Other [employer] Other 04-17-2022 09:30-0400 Body weight 113.4 kg Darwin [employer] Other [employer] Other 04-17-2022 09:30-0400 Diastolic blood pressure 82 mm[Hg] Darwin [employer] Other [employer] Other 04-17-2022 09:30-0400 Respiratory rate 20 /min Darwin [employer] Other [employer] Other 04-17-2022 09:30-0400 SaO2% (BldA) [Mass fraction] 99 % Darwin [employer] Other [email or web address] [facility] [employer] Other 04-17-2022 09:30-0400 Systolic blood pressure 124 mm[Hg] Darwin Jones Other [employer] Other 02-18-2022 21:41-0400 Diastolic blood pressure 88 mm[Hg] Fazal Antoni [facility] 02-18-2022 21:41-0400 Heart rate 84 /min Fazal Antoni [facility] 02-18-2022 21:41-0400 Mean blood pressure 101 mm[Hg] Fazal Antoni [facility] 02-18-2022 21:41-0400 Respiratory rate 17 /min Fazal Antoni [facility] 02-18-2022 21:41-0400 SaO2% (BldA) [Mass fraction] 98 % Darwin Jones Other [employer] Other 02-18-2022 21:41-0400 Systolic blood pressure 126 mm[Hg] Fazal Antoni [facility] 02-18-2022 20:42-0400 gluc 106 mg/dL Fazal Antoni [facility] 02-18-2022 20:42-0400 gluc Fazal Antoni [facility] 02-18-2022 20:33-0400 Body temperature 98.06 [degF] Fazal Antoni [facility] 02-18-2022 20:33-0400 Diastolic blood pressure 99 mm[Hg] Fazal Antoni [facility] 02-18-2022 20:33-0400 Heart rate 99 /min Fazal Antoni [facility] 02-18-2022 20:33-0400 Respiratory rate 18 /min Fazal Antoni [facility] 02-18-2022 20:33-0400 Systolic blood pressure 153 mm[Hg] Fazal Antnoi [facility] 02-18-2022 10:00-0400 Body height 170.18 cm Darwin [employer] Other [facility] [employer] Other 02-18-2022 10:00-0400 Body mass index (BMI) [Ratio] 38.52 kg/m2 Darwin Easterwood Other [employer] Other 02-18-2022 10:00-0400 Body temperature 97 [degF] Darwin Easterwood Other [employer] Other 02-18-2022 10:00-0400 Body weight 111.59 kg Darwin Easterwood Other [employer] Other 02-18-2022 10:00-0400 Diastolic blood pressure 82 mm[Hg] Darwin Easterwood Other [employer] Other 02-18-2022 10:00-0400 Respiratory rate 20 /min Darwin Easterwood Other [employer] Other 02-18-2022 10:00-0400 Systolic blood pressure 118 mm[Hg] Darwin Easterwood Other [employer] Other 02-11-2022 12:00-0400 Body height 170.18 cm Darwin [employer] Other [employer] Other 02-11-2022 12:00-0400 Body mass index (BMI) [Ratio] 37.9 kg/m2 Darwin Joneserjillian Other [employer] Other 02-11-2022 12:00-0400 Body temperature 97.2 [degF] Darwin Roberterwood Other [employer] Other 02-11-2022 12:00-0400 Body weight 109.77 kg Darwin Jones Other [employer] Other 02-11-2022 12:00-0400 Diastolic blood pressure 88 mm[Hg] Darwin Roberterjillian Other [employer] Other 02-11-2022 12:00-0400 Respiratory rate 20 /min Darwin Joneserjillian Other [employer] Other 02-11-2022 12:00-0400 SaO2% (BldA) [Mass fraction] 98 % Darwin Jones Other [employer] Other 02-11-2022 12:00-0400 Systolic blood pressure 126 mm[Hg] Darwin Roberterwood Other [employer] Other 09-03-2021 10:02-0500 Diastolic blood pressure 86 mm[Hg] Unknown [facility] DO Work Phone: 09-03-2021 10:02-0500 Systolic blood pressure 110 mm[Hg] Unknown Unknown [facility] 600 DO Work Phone: 09-03-2021 09:55-0500 Body height 170.18 cm Unknown Unknown [facility] 600 DO Work Phone: 09-03-2021 09:55-0500 Body mass index (BMI) [Ratio] 32.36 kg/m2 Unknown Unknown [facility] 600 DO Work Phone: 09-03-2021 09:55-0500 Body surface area Derived from formula 2.05 m2 Unknown Unknown [facility] 600 DO Work Phone: 09-03-2021 09:55-0500 Body weight 93.71 kg Unknown Unknown [facility] 600 DO Work Phone: 09-03-2021 09:55-0500 Diastolic blood pressure 84 mm[Hg] Unknown Unknown [facility] 600 DO Work Phone: 09-03-2021 09:55-0500 Heart rate 72 /min Unknown Unknown [facility] 600 DO Work Phone: 09-03-2021 09:55-0500 Systolic blood pressure 122 mm[Hg] Unknown Unknown [facility] 600 DO Work Phone: Encounters Encounter Date Encounter Type Care Provider Facility Start: 09-22-2024 End: 09-22-2024 Clinisync Result Encounter Brain Seamus DO Work Phone: [facility] External Department Unsolicited Start: 09-22-2024 End: 09-22-2024 Clinisync Result Encounter Brain Seamus DO Work Phone: [facility] External Department Unsolicited Start: 09-21-2024 End: 09-21-2024 Patient encounter procedure Darwin Jones 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 Work Phone: [facility] [place] Work Phone: Start: 09-21-2024 End: 09-21-2024 ambulatory Darwin Jones 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 Work Phone: [facility] Work Phone: Start: 09-19-2024 End: [...] End: 09-14-2024 Patient encounter procedure Darwin Jones 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 Work Phone: [facility]ro[facility] Work Phone: Start: 09-14-2024 End: 09-14-2024 ambulatory Darwin Jones 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 Work Phone: [facility] Work Phone: Start: 09-11-2024 End: [...] Start: 09-07-2024 Non-patient / Non-visit Darwin corral 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 Work Phone: [facility] Work Phone: Start: 09-06-2024 End: 09-06-2024 Emergency department patient visit Flash Franco [facility] Start: 09-05-2024 ambulatory Rogelio Shimon [facility] Facility :[facility] Start: 09-05-2024 End: 09-05-[address] [facility] Shimon [facility] Facility:[facility] Start: 09-05-2024 Emergency department patient visit DO Gabriel Curtis Facility:[facility] Start: 09-05-2024 End: 09-05-[address] [facility] Shimon [facility] Start: 08-25-2024 End: 08-25-2024 Clinisync Result Encounter Brain Seamus DO Work Phone: [facility] External Department Unsolicited Start: 08-25-2024 End: 08-25-2024 Clinisync Result Encounter Brain Seamus DO Work Phone: [facility] External Department Unsolicited Start: 08-25-2024 End: 08-25-2024 ambulatory Darwin Jones 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 Work Phone: [facility] Work Phone: Start: 08-25-2024 End: 08-25-2024 Patient encounter procedure Darwin Joens 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 Work Phone[facility] Work Phone: Start: 08-23-2024 End: 08-23-2024 [...] Not Available Start: 08-02-2024 End: 08-02-2024 ambulatory [facility] Start: 07-31-2024 End: 07-31-2024 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 Work Phone: [facility] [place] Work Phone: Start: 07-31-2024 End: 07-31-2024 Orders Only Hayden Reilly MD Work Phone: [facility] - [facility] Comment on above: History of pericardi tis (Primary Dx); Mild concentric left ventricular hypertrophy (LVH); 25 weeks gestation of Start: 07-27-2024 End: 07-27-2024 ambulatory NO PCP NO PCP [facility] Start: 07-11-2024 End: 07-11-2024 flow sheet Brain Seamus DO Work Phone: [facility] Comment on above: 22 weeks gestation o f ; Second trimester ; Nausea and vomiting during ; Diabetes mellitus screening Start: 06-28-2024 End: 06-28-2024 Patient encounter procedure Darwin Joneserwood 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 Work Phone: [facility] [place] Work Phone: Start: 06-28-2024 End: 06-28-2024 ambulatory Darwin Jones 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 Work Phone: [facility] Work Phone: Start: 2024 End: 2024 Office consultation new/estab patient 60 min Hayden Reilly MD Work Phone: [facility] [place] Comment on above: 20 weeks gestation o f (Primary Dx); Tiffani's disease; 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; Hx of preeclampsia, prior , currently ; Elevated BP without diagnosis of hypertension; History of pericarditis; with history of section, antepartum; History of macrosomia in in prior , currently ; Obesity affecting , antepartum, unspecified obesity type; Depression affecting Start: 2024 End: 2024 ambulatory [facility] Start: 06-22-2024 End: 06-22-2024 Patient encounter procedure Darwin Jones 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 Work Phone: [facility] [place] Work Phone: Start: 06-22-2024 End: 06-22-2024 ambulatory Darwin Jones 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 Work Phone: [facility] Work Phone: Start: 06-21-2024 End: 06-21-2024 Chart abstracting Hayden Reilly MD Work Phone: [facility] Start: 06-12-2024 End: 06-12-2024 Bamboo flowsheet Brain [...] encounter procedure SHIRLEY Jones Work Phone: [facility] [place] Work Phone: Start: 05-24-2024 End: 05-24-2024 ambulatory SHIRLEY Anaya [facility] Work Phone: [facility] Work Phone: Start: 05-11-2024 End: 05-11-2024 ambulatory SHIRLEY Anaya [facility] Work Phone: [facility] Work Phone: Start: 05-11-2024 End: 05-11-2024 Encounter for general adult medical examination without abnormal findings SHIRLEY Laraboone Work Phone: [facility] Start: 05-11-2024 End: 05-11-2024 Patient encounter procedure SHIRLEY Jones Work Phone: [facility] [place] Work Phone: Start: 05-10-2024 End: 05-10-2024 Bamboo [...] 04-06-2024 Departed Referred SHIRLEY Jones Work Phone: [facility] Start: 04-06-2024 End: 04-06-2024 ambulatory 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 Darwin Anaya Easterwood Work Phone: [facility] Work Phone: Start: 03-21-2024 End: 03-21-[address] Not Available Start: 03-18-2024 End: 03-18-2024 Emergency department patient visit [place] [facility] Start: 02-24-2024 End: 02-24-2024 Patient encounter procedure 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 Darwin Roberterwood Work Phone: [facility] [place] Work Phone: Start: 02-24-2024 End: 02-24-2024 ambulatory 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 Darwin Anaya Easterwood Work Phone: [facility] Work Phone: Start: 01-25-2024 End: 01-25-2024 ambulatory 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 Darwin Anaya Roberterwood Work Phone: [facility] Work Phone: Start: 01-25-2024 End: 01-25-2024 Patient encounter procedure 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 Darwin Roberterwood Work Phone: [facility] Work Phone: Start: 01-24-2024 End: 01-24-2024 Patient encounter procedure 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 Darwin Joneserwood Work Phone: [facility] [place] Work Phone: Start: 01-24-2024 End: 01-24-2024 ambulatory 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 Darwin Jaclyn Easterwood Work Phone: [facility] Work Phone: Start: 12-27-2023 End: 12-27-2023 Patient encounter procedure 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 Darwin Easterwood Work Phone: [facility] [place] Work Phone: Start: 12-27-2023 End: 12-27-2023 ambulatory 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 Darwin Joneserwood Work Phone: [facility] Work Phone: Start: 12-24-2023 End: 12-24-2023 ambulatory 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 Darwin Joneserwood Work Phone: [facility] Work Phone: Start: 12-24-2023 End: 12-24-2023 Patient encounter procedure 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Alayna Jones Work Phone: [facility] Work Phone: Start: 11-30-2023 End: 11-30-2023 Patient encounter procedure 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Alayna Joneserwood Work Phone: [facility] [place] Work Phone: Start: 11-30-2023 End: 11-30-2023 ambulatory 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 Darwin Joneserwood Work Phone: [facility] Work Phone: Start: 11-25-2023 End: 11-25-2023 ambulatory 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 Darwin Joneserwood Work Phone: [facility] Work Phone: Start: 11-25-2023 End: 11-25-2023 Patient encounter procedure 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 Darwin Joneserwood Work Phone: [facility] Work Phone: Start: 11-18-2023 End: 11-19-2023 ambulatory RUBY WHITTINGTON Facility:[facility] Start: 11-18-2023 End: 11-18-2023 Patient encounter procedure Ruby Whittington MD Work Phone: Endocrinology Comment on above: 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); Class 2 obesity; Irregular menstruation, unspecified; Female infertility; Calculus of kidney Start: 11-01-2023 End: 11-01-2023 Patient encounter procedure SHIRLEY Orosco Yasir Work Phone: [facility] [place] Work Phone: Start: 11-01-2023 End: 11-01-2023 ambulatory SHIRLEY Anaya Yasir Work Phone: [facility] Work Phone: Start: 10-20-2023 End: 10-20-2023 Patient encounter procedure SHIRLEY Larajillian Work Phone: [facility] Work Phone: Start: 10-01-2023 End: 10-01-2023 Patient encounter procedure SHIRLEY Orosco Yasir Work Phone: [facility] [place] Work Phone: Start: 10-01-2023 End: 10-01-2023 ambulatory SHIRLEY Anaya Yasir Work Phone: [facility] Work Phone: Start: 09-29-2023 End: 09-29-2023 ambulatory Tyrone Rock Facility:[facility] Start: 09-29-2023 End: 09-29-2023 Patient encounter procedure Tyrone Rock [facility] Start: 09-21-2023 End: 09-21-2023 ambulatory Darwin Jones Other [employer] Other Start: 09-21-2023 Office outpatient vi sit 15 minutes Darwin Jones [facility] Start: 08-30-2023 Patient encounter procedure 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 Darwin Jones Work Phone: [facility]- Start: 08-25-2023 End: 08-25-2023 ambulatory Darwin Jones Other [employer] Other Start: 08-25-2023 Follow-up encounter Darwin Jones [facility] Start: 08-25-2023 End: 08-25-2023 Patient encounter procedure 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 Darwin Jones Work Phone: [facility] Work Phone: Start: 07-23-2023 End: 07-23-2023 Patient encounter procedure 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Alayna Jones Work Phone: [facility] Work Phone: Start: 07-16-2023 Telephone encounter Ruby sneed MD Work Phone: Endocrinology Comment on above: Appointment Start: 06-23-2023 End: 06-23-2023 ambulatory Darwin Jones Other [employer] Other Start: 06-23-2023 Office outpatient vi sit 15 [facility] Start: 06-08-2023 End: 06-08-2023 ambulatory FRANCY GAN Facility:[facility] Start: 06-08-2023 End: 06-08-2023 Patient encounter procedure Francy Gan PA-C Work Phone: Otolaryngology Comment on above: Dysphagia, unspecifi ed type (Primary Dx); LPRD (laryngopharyngeal reflux disease) Start: 05-26-2023 End: 05-26-2023 ambulatory Darwin Jones Other [employer] Other Start: 05-26-2023 Office outpatient vi sit 25 minutes [facility] Start: 05-06-2023 End: 05-06-2023 ambulatory 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 Darwin Jones Work Phone: [facility] Work Phone: Start: 05-06-2023 End: 05-06-2023 Patient encounter procedure SHIRLEY Jones Work Phone: [facility] [place] Work Phone: Start: 04-28-2023 End: 04-28-2023 ambulatory Darwin Jones Other [employer] Other Start: 04-28-2023 Office outpatient vi sit 40 minutes Darwin [facility] Start: 04-16-2023 End: 04-16-2023 ambulatory Darwin [facility] Other [employer] Other Start: 04-16-2023 Encounter for genera l adult medical examination without abnormal findings [facility] Start: 04-16-2023 Periodic preventive med est patient 18-39 yrs Darwin [facility] Start: 04-08-2023 End: 04-08-2023 ambulatory 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 Darwin Jones Work Phone: [facility] Work Phone: Start: 04-08-2023 End: 04-08-2023 Departed Referred SHIRLEY Jones Work Phone: [facility]-Employee Benefit Screening Start: 03-22-2023 End: 03-22-2023 Emergency department patient visit Gabriel Curtis [facility] Start: 03-22-2023 End: 03-22-2023 Emergency department patient visit SHIRLEY Jones Work Phone: [facility]-Emergency Room Work Phone: Start: 02-28-2023 End: 02-28-2023 Departed Referred SHIRLEY Jones Work Phone: [facility]-Employee Benefit Screening Start: 02-28-2023 End: 02-28-2023 ambulatory SHIRLEY Jones Work Phone: [facility] Work Phone: Start: 02-28-2023 End: 02-28-2023 Patient encounter procedure SHIRLEY Jones Work Phone: [facility] [address] Work Phone: Start: 12-10-2022 End: 12-10-2022 ambulatory SHIRLEY Jones Work Phone: [facility] Work Phone: Start: 12-10-2022 End: 12-10-2022 Patient encounter procedure SHIRLEY Jones Work Phone: [facility] [place] Work Phone: Start: 12-09-2022 End: 12-09-[address] NONE LISTED REQUEST Facility: Start: 12-08-2022 End: 12-08-2022 ambulatory Ofelia Hester Other [employer] Other Start: 12-08-2022 [facility] Start: 10-22-2022 End: 10-22-2022 ambulatory Lilly Luke Other [employer] Other Start: 10-22-2022 Telephone encounter Lilly Luke [facility] Start: 10-16-2022 End: 10-16-2022 ambulatory SHIRLEY Darwin Jones Work Phone: [facility] Work Phone: Start: 10-16-2022 End: 10-16-2022 Patient encounter procedure SHIRLEY Jones Work Phone: [facility] [place] Work Phone: Start: 10-15-2022 End: 10-15-2022 ambulatory Ofelia Hester Other [employer] Other Start: 10-15-2022 Telephone encounter [facility] Start: 10-05-2022 Registered Recurring SHIRLEY Jones Work Phone: [facility]Weight Management Work Phone: Start: 10-05-2022 [facility] f/u [facility] Start: 10-05-2022 End: 10-05-2022 ambulatory Ofeliaher Couchler Other [employer] Other Start: 09-28-2022 ambulatory Ruby Whittington MD Work Phone: Endocrinology Comment on above: Synthroid Start: 09-02-2022 [facility] f/u [facility] Start: 09-02-2022 End: 09-02-2022 ambulatory Ofeliaher Couchler Other [employer] Other Start: 08-25-2022 ([facility] WMNI) WMN Init ial Provider Lilly Luke [facility] Start: 08-25-2022 End: 08-25-2022 ambulatory Lilly Luke Other [employer] Other Start: 07-31-2022 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); Class 2 obesity Start: 07-08-2022 End: 07-08-2022 ambulatory Ofelia Hester Other [employer] Other Start: 07-08-2022 Telephone encounter [facility] Start: 06-17-2022 ([facility]/U) Weight Management f/u [facility] Start: 06-17-2022 End: 06-17-2022 ambulatory Ofelia Hester Other [employer] Other Start: 06-04-2022 End: 06-04-2022 ambulatory Sima Ross Other [employer] Other Start: 06-04-2022 Office outpatient vi sit 15 minutes Sima Ross [facility] Start: 05-27-2022 End: 05-27-2022 ambulatory Lilly Luke Other [employer] Other Start: 05-27-2022 IBT FOR OBESITY GROU P 2-10 30M Lilly Luke [facility] Start: 05-25-2022 End: 05-25-2022 ambulatory Darwin Jones Other [employer] Other Start: 05-25-2022 Telephone encounter Geoffrey murphy MD Work Phone: Endocrinology Comment on above: Appointment (LVM for patient that appt on 05/[address] George has been rescheduled to 07/08 at [facility] with Dr. Robertson. sending mail reminder as well. ) Start: 05-19-2022 End: 05-19-2022 ambulatory Ofelia Hester Other [employer] Other Start: 05-19-2022 Telephone encounter Ofelia Purvis [facility] Start: 05-18-2022 End: 05-18-2022 ambulatory Ofelia Hester Other [employer] Other Start: 05-18-2022 Nutrition therapy Ofelia Hester [facility] Start: 04-21-2022 End: 04-21-2022 ambulatory Darwin Easterwood Other [employer] Other Start: 04-21-2022 Telephone encounter Darwin Easterwood [facility] Start: 04-17-2022 End: 04-17-2022 ambulatory Darwin Easterwood Other [employer] Other Start: 04-17-2022 Office outpatient vi sit 25 minutes Darwin Easterwood [facility] Start: 04-15-2022 End: 04-15-2022 ambulatory Darwin Easterwood Other [employer] Other Start: 04-15-2022 Telephone encounter Darwin Easterwood [facility] Start: 04-14-2022 End: 04-14-2022 Patient encounter procedure PHYSICIAN [facility] Start: 04-10-2022 End: 04-10-2022 ambulatory Lilly Luke Other [employer] Other Start: 04-10-2022 Telephone encounter Lilly Luke [facility] Start: 04-06-2022 End: 04-06-2022 Patient encounter procedure PHYSICIAN NO [facility] [place] Start: 02-24-2022 End: 02-24-2022 ambulatory Darwin Yasir Other [employer] Other Start: 02-24-2022 [facility] Start: 02-18-2022 End: 02-18-2022 Emergency department patient visit Fazal Corrales [facility] Start: 02-18-2022 End: 02-18-2022 ambulatory Darwin Janewood Other [employer] Other Start: 02-18-2022 Office outpatient vi sit 25 minutes Darwin [facility] Start: 02-18-2022 [facility] Start: 02-13-2022 End: 02-13-2022 Patient encounter procedure PHYSICIAN NO [facility]Ul[facility]ound Main [facility] Start: 02-11-2022 End: 02-11-2022 ambulatory Darwin Jones Other [employer] Other Start: 02-11-2022 Office outpatient ne w 45 minutes Darwin [facility] Start: 02-10-2022 End: 02-10-2022 Departed Referred PHYSICIAN [facility]-Employee Benefit Screening Start: 09-04-2021 Chart Update Unknown Unknown [facility] 250 DO Work Phone: Start: 09-03-2021 Office outpatient ne w [address] [facility]: Procedures Date Procedure [...] for malignant neoplasm of cervix Pap Smear [facility] Start: 03-23-2026 DTaP,Tdap and Td Vaccines (7 - Td or Tdap) DTaP,Tdap and Td Vaccines (7 - Td or Tdap) [facility] Start: 03-23-2026 Urine microalbumin profile [facility] Start: 2025 Tobacco Screening Tobacco Screening [facility] Start: 10-05-2024 End: 10-05-2024 Patient encounter procedure 10/05/2024 2:20 PM EST Routine [facility] [address] [place] [address] Mya Finch PA [address] [place] [address] [facility] Start: 09-19-2024 End: 09-19-2024 [...] 08/31/2024 (Approximate), Expi res: 07/31/2025 Start: 08-25-2024 [facility] Start: 08-23-2024 End: 08-23-2024 Patient encounter procedure 08/23/2024 11:00 AM EST Routine [facility] [address] [place] [address] DO [address] [facility] [address] [place] [place] [address] Arrived [facility] Comment on above: Arrived Start: 08-02-2024 End: 08-02-2024 Telemedicine consultation with patient 08/02/2024 9:00 AM EST Telemedicine [facility] [address] [place] [address] Darcy Enriquez MD [address] [place] [address] [facility] Start: 07-27-2024 End: 07-27-2024 Patient encounter procedure 07/27/2024 11:00 AM EST Appointment [facility] [address] [place] [id number] [facility] Start: 07-21-2024 End: 07-21-2024 Patient encounter procedure 07/21/2024 10:00 AM EST Appointment [facility] - [facility] [address] [place] [id number] [facility] Start: 07-11-2024 End: 07-11-2025 CBC panel - Blood by Automated count CBC Lab Routine 22 weeks gestation of Second trimester Expected: 07/11/2024 (Approximate), Expires: 07/11/2025 [facility] Work Phone: Comment on above: Expected: 07/11/2024 (Approximate), Expi res: 07/11/2025 Start: 07-11-2024 End: 07-11-2025 Measurement of glucose 1 hour after glucose challenge for glucose tolerance test Glucose tolerance, 1 hour Lab Routine 22 weeks gestation of Second trimester Diabetes mellitus screening Expected: 07/11/2024 (Approximate), Expires: 07/11/2025 [facility] Comment on above: Expected: 07/11/2024 (Approximate), Expi res: 07/11/2025 Start: 07-11-2024 End: 07-11-2024 Patient encounter procedure 07/11/2024 10:10 AM EST Routine [facility] [address] [place] [id number] DO [address] [place] [address] [facility] Start: 06-28-2024 [facility] Start: 2024 End: 2025 Echo complete W/O contrast Echo complete W/O contrast Echocardiography Routine 20 weeks gestation of History of pericarditis Expected: 2024, Expires: 2025 [facility] Work Phone: Comment on above: Expected: 2024, Expires: Start: 2024 End: 2024 Patient encounter procedure [facility] Start: 06-12-2024 End: 10-13-2024 Alpha fetoprotein, maternal [...] Routine [facility] [address] [place] [phone] [address], DO [address] [place] [address] Arrived [facility] Comment on above: Arrived Start: 06-07-2024 End: 06-07-2024 Patient encounter procedure 06/07/2024 10:50 AM EDT Routine [facility] [address] [place] [id number] [address], DO [address] [place] [address] [facility] Start: 05-10-2024 End: 05-10-2024 Patient encounter procedure [facility] Comment on above: Arrived Start: 04-20-2024 End: 04-20-2024 Patient encounter procedure [facility] Comment on above: Arrived Start: 04-16-2024 COVID-19 Vaccine ( season) COVID-19 Vaccine ( season) [facility] Start: 04-16-2024 Influenza vaccination [facility] Start: 04-07-2024 End: 04-07-2025 ABO/Rh ABO/Rh Lab Routine Missed menses Expected: 04/07/2024 (Approximate), Expires: 04/07/2025 [facility] Comment on above: Expected: 04/07/2024 (Approximate), Expi res: 04/07/2025 Start: 04-07-2024 End: 04-07-2025 Blood type and Indirect antibody screen panel - Blood Type and screen Lab Routine Missed menses Expected: 04/07/2024 (Approximate), Expires: 04/07/2025 [facility] Work Phone: Comment on above: Expected: 04/07/2024 (Approximate), Expi res: 04/07/2025 Start: 08-16-2023 Behavioral Health Screening Behavioral Health Screening [facility] Start: 05-06-2023 US scan of thyroid US thyroid [facility] Start: 04-16-2023 Covid-19 Vaccine ( season) Covid-19 Vaccine ( season) [facility] Start: 04-16-2023 Influenza vaccination Influenza [facility]ine (#[facility] Start: 04-08-2023 [facility] Start: 08-16-2022 DEPRESSION ASSESSMENT DEPRESSION ASSESSMENT [facility] Start: 04-16-2022 Influenza vaccination INFLUENZA (#1) [facility] Start: 08-16-2021 DEPRESSION ASSESSMENT DEPRESSION ASSESSMENT [facility] Start: 01-10-2021 COVID-19 VACCINE (3 - Booster) COVID-19 VACCINE (3 - Booster) [facility] Start: 2017 PAP TESTING PAP TESTING [facility] Start: 2017 Screening for malignant neoplasm of cervix [facility] Start: 2015 DTaP,Tdap and Td Vaccines (1 - Tdap) DTaP,Tdap and Td Vaccines (1 - Tdap) [facility] Start: 2015 Urine microalbumin profile DTAP,TDAP,TD (1 - Tdap) [facility] Start: 2014 Adult BMI Screening Adult BMI Screening [facility] Start: 2014 ANNUAL PCP TEAM CHRONIC DISEASE VISIT ANNUAL PCP TEAM CHRONIC DISEASE VISIT [facility] Start: 2014 HEPATITIS C SCREENING HEPATITIS C SCREENING [facility] Start: 2014 Hepatitis C screening Hepatitis C Screening [facility] Start: 2014 HIV SCREENING HIV SCREENING [facility] Start: 2014 HIV screening HIV Screening [facility] Start: 2010 PEDS TO ADULT TRANSITION ANNUAL ASSESSMENT PEDS TO ADULT TRANSITION ANNUAL ASSESSMENT [facility] Start: 2008 Depression Screening Depression Screening [facility] Start: 2008 PEDS TO ADULT TRANSITION INITIAL DISCUSSION PEDS TO ADULT TRANSITION INITIAL DISCUSSION [facility] Start: 2008 Tobacco Screening Tobacco Screening [facility] Start: 2007 HPV VACCINE (1 - 2-dose series) HPV VACCINE (1 - 2-dose series) [facility] Start: 2005 HPV Vaccine (1 - 2-dose series) HPV Vaccine (1 - 2-dose series) [facility] Start: 1996 COVID-19 VACCINE (#1) COVID-19 VACCINE (#1) [facility] Start: 1996 HEPATITIS B (1 of 3 - 3-dose series) HEPATITIS B (1 of 3 - 3-dose series) [facility] Bacteria identified in Urine by Culture Urine culture Microbiology Routine Missed menses Ordered: 04/07/2024 [facility] Comment on above: Ordered: 04/07/2024 CBC W Auto Differential panel - Blood CBC and differential Lab Routine Missed menses Ordered: 04/07/2024 [facility] Comment on above: Ordered: 04/07/2024 CHLAMYDIA TRACHOMATI S (GENITO/STI) CHLAMYDIA TRACHOMATIS (GENITO/STI) Lab Routine First trimester Screen for STD (sexually transmitted disease) Vaginal discharge Ordered: 04/20/2024 [facility] Comment on above: Ordered: 04/20/2024 Cytology Cervical or vaginal smear or scraping study Pap Smear Pathology and Cytology Routine Well woman exam with routine gynecological exam Ordered: 04/20/2024 [facility] Work Phone: Comment on above: Ordered: 04/20/2024 Hemoglobin A1c/Hemoglobin.total in Blood Hemoglobin A1c Lab Routine Missed menses Ordered: 04/07/2024 [facility] Comment on above: Ordered: 04/07/2024 Hepatitis B virus surface Ag [Presence] in Serum or Plasma by Immunoassay Hepatitis B surface antigen Lab Routine Missed menses Ordered: 04/07/2024 [facility] Comment on above: Ordered: 04/07/2024 Hepatitis C virus Ab [Presence] in Serum or Plasma by Immunoassay Hepatitis C antibody Lab Routine Missed menses Ordered: 04/07/2024 [facility] Comment on above: Ordered: 04/07/2024 HIV-1/HIV-2 antigen/antibody combination immunoassay HIV-1 and HIV-2 antibodies Lab Routine Missed menses Ordered: 04/07/2024 [facility] Comment on above: Ordered: 04/07/2024 Neisseria gonorrhoea e DNA [Presence] in Unspecified specimen by LAUREN with probe detection Neisseria gonorrhea DNA probe, direct Lab Routine First trimester Screen for STD (sexually transmitted disease) Vaginal discharge Ordered: 04/20/2024 [facility] Comment on above: Ordered: 04/20/2024 Patient referral [facility] Work Phone: Progesterone [Mass/volume] in Serum or Plasma [facility] Progesterone [Mass/volume] in Serum or Plasma [facility] Progesterone [Mass/volume] in Serum or Plasma [facility] Progesterone [Mass/volume] in Serum or Plasma [facility] Progesterone [Mass/volume] in Serum or Plasma [facility] Reagin Ab [Presence] in Serum by RPR RPR Lab Routine Missed menses Ordered: 04/07/2024 [facility] Comment on above: Ordered: 04/07/2024 Rubella antibody, IgG Rubella an tibody, IgG Lab Routine Missed menses Ordered: 04/07/2024 [facility] Comment on above: Ordered: 04/07/2024 SURESWAB(R) ADVANCED VAGINITIS PLUS, TMA SURESWAB(R) ADVANCED VAGINITIS PLUS, TMA Pathology and Cytology Routine First trimester Screen for STD (sexually transmitted disease) Vaginal discharge Ordered: 04/20/2024 [facility] Comment on above: Ordered: 04/20/2024 Thyrotropin [Units/volume] in Serum or Plasma TSH Lab Routine Missed menses Ordered: 04/07/2024 [facility] Comment on above: Ordered: 04/07/2024 Heart Transthoracic [facility] End: 07-07-2024 XR MODIFIED BARIUM SWALLOW W SPEECH THERAPY XR MODIFIED BARIUM SWALLOW W SPEECH THERAPY Radiology Routine Dysphagia, unspecified type 1 Occurrences starting 06/08/2023 until 07/07/2024 [facility] Work Phone: Comment on above: 1 Occurrences starting 06/08/2023 until 07/07/2024 [facility] Work Phone: [facility] Immunizations Immunization Date Immunization Notes Care Provider Vaishali yo 05-21-2023 influenza virus vaccine, unspecified formulation [place] [place] [facility] 05-21-2023 influenza, injectabl e, 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, 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 [place]wood Work Phone: [facility] 05-21-2023 influenza, injectabl e, 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, contains 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 Darwin [place]wood Other [employer] Other 06-15-2022 influenza, injectabl e, 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, 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 [place]wood Work Phone: [facility] 06-15-2022 influenza, injectabl e, 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, contains 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 Darwin [place] Other [facility] Work Phone: 06-15-2022 influenza virus vaccine, unspecified formulation Francy Gan PA-C Work Phone: [facility] 06-15-2021 influenza nasal, unspecified formulation Ruby Whittington MD Work Phone: [facility] Work Phone: 06-15-2021 influenza virus vaccine, unspecified formulation [place] [facility] 06-15-2021 influenza, injectabl e, 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, 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 Jonesjillian Work Phone: [facility] 06-15-2021 influenza, injectabl e, 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, contains 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 Darwin [place] Other [facility] Work Phone: 05-15-2021 influenza nasal, unspecified formulation Ruby Whittington MD Work Phone: [facility] Work Phone: 05-15-2021 influenza virus vaccine, unspecified formulation [place] [place] [facility] 05-15-2021 influenza, high dose seasonal, 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-free Unknown Unknown [facility] Work Phone: 11-15-2020 Pfizer-BioNTech COVID-19 Vacc 30 MCG/0.3ML Intramuscular Suspension Unknown Unknown [facility] 11-12-2020 COVID-19 vaccine, unknown product (NON-US) Ruby Whittington MD Work Phone: [facility] Work Phone: 10-24-2020 Pfizer-BioNTech COVID-19 Vacc 30 MCG/0.3ML Intramuscular Suspension Unknown Unknown [facility] 03-23-2016 tetanus toxoid, reduced diphtheria toxoid, and acellular pertussis vaccine, adsorbed Unknown Unknown [facility] Work Phone: 03-23-2016 varicella virus vaccine Unknown Unknown [facility] Work Phone: 03-01-2002 diphtheria, tetanus toxoids and acellular pertussis vaccine, unspecified formulation Unknown Unknown [facility] Work Phone: 03-01-2002 DTaP, unspecified formulation [place] [place] [facility] 03-01-2002 measles, mumps and rubella virus vaccine Unknown Unknown [facility] Work Phone: 03-01-2002 poliovirus vaccine, inactivated Unknown Unknown [facility] Work Phone: 03-01-2002 poliovirus vaccine, unspecified formulation [place] [place] [facility] 04-20-2001 hepatitis B vaccine, pediatric or pediatric/adolescent dosage Unknown Unknown [facility] Work Phone: 01-03-1998 diphtheria, tetanus toxoids and acellular pertussis vaccine, unspecified formulation Unknown Unknown [facility] Work Phone: 01-03-1998 DTaP, unspecified formulation [place] [place] [facility] 09-18-1997 measles, mumps and rubella virus vaccine Unknown Unknown [facility] Work Phone: 09-18-1997 varicella virus vaccine Unknown Unknown [facility] Work Phone: 03-30-1997 hepatitis B vaccine, pediatric or pediatric/adolescent dosage Unknown Unknown [facility] Work Phone: 1996 diphtheria, tetanus toxoids and acellular pertussis vaccine, unspecified formulation Unknown Unknown [facility] Work Phone: 1996 DTaP, unspecified formulation [facility] [place] [facility] 1996 trivalent poliovirus vaccine, live, oral Unknown Unknown [facility] Work Phone: 1996 diphtheria, tetanus toxoids and acellular pertussis vaccine, unspecified formulation Unknown Unknown [facility] Work Phone: 1996 DTaP, unspecified formulation Tyrone Polancopsey [facility] 1996 haemophilus influenz ae type b vaccine, conjugate unspecified formulation Unknown Unknown [facility] Work Phone: 1996 Hib, unspecified formulation Tyrone Pranav [facility] 1996 trivalent poliovirus vaccine, live, oral Unknown Unknown [facility] Work Phone: 1996 diphtheria, tetanus toxoids and acellular pertussis vaccine, unspecified formulation Unknown Unknown [facility] Work Phone: 1996 DTaP, unspecified formulation [place] [facility] 1996 diphtheria, tetanus toxoids and acellular pertussis vaccine, unspecified formulation Unknown Unknown [facility] Work Phone: 1996 DTaP, unspecified formulation Tyrone Polancopsey [facility] 1996 haemophilus influenz ae type b vaccine, conjugate unspecified formulation Unknown Unknown [facility] Work Phone: 1996 Hib, unspecified formulation Tyrone Polancopsey [facility] 1996 measles, mumps and rubella virus vaccine Unknown Unknown [facility] Work Phone: 1996 varicella virus vaccine Unknown Unknown [facility] Work Phone: 1996 diphtheria, tetanus toxoids and acellular pertussis vaccine, unspecified formulation Unknown Unknown [facility] Work Phone: 1996 DTaP, unspecified formulation [place] [facility] 1996 haemophilus influenz ae type b vaccine, conjugate unspecified formulation Unknown Unknown [facility] Work Phone: 1996 hepatitis B vaccine, pediatric or pediatric/adolescent dosage Unknown Unknown [facility] Work Phone: 1996 Hib, unspecified formulation Tyrone Pranav [facility] 1996 trivalent poliovirus vaccine, live, oral Unknown Unknown [facility] Work Phone: 1996 hepatitis B vaccine, pediatric or pediatric/adolescent dosage Unknown Unknown [facility] Work Phone: Payers Date Payer Category Payer Self-pay [id number] 2023 Self-pay [id number] 2022 Private Health Insurance [id number] 2021 Unknown 2019 [employer] - PPO [id number] 1996 Unknown [id number] 2.16.84 0.1.712830.3.579.2.593 1996 Unknown [id number] 2.16.8 40.1.807404.3.579.2.727 1996 Unknown [id number] 2.16.8 40.1.710917.3.579.2.727 1996 Unknown [id number] 2.16.8 40.1.704775.3.579.2.727 1996 Unknown [id number] 2.16.840.1.566344.3.579.2.1286 1996 Unknown [id number] 2.16.840.1.782044.3.579.2.1286 1996 Unknown [id number] 2.16.840.1.532402.3.579.2.1286 1996 Unknown [id number] 2.16.840.1.071041.3.579.2.1286 1996 Unknown [id number] 2.16.8 40.1.809254.3.579.2.727 1996 Unknown [id number] 2.16.8 40.1.056751.3.579.2.727 1996 Unknown [id number] 2.16.8 40.1.491341.3.579.2.727 1996 Unknown [id number] 2.16.8 40.1.162812.3.579.2. 1996 Unknown [id number] 2.16.8 40.1.067739.3.579.2. 1996 Unknown [id number] 2.16.8 40.1.115940.3.579.2. 1996 Unknown [id number] 2.16.8 40.1.145864.3.579.2. 1996 Unknown [id number] 2.16.8 40.1.288059.3.579.2. 1996 Unknown [id number] 2.16.84 0.1.393180.3.579.2.1258 1996 Unknown [id number] 2.16.84 0.1.732372.3.579.2.1258 1996 Unknown [id number] 2.16.84 0.1.775615.3.579.2.1258 1996 Unknown [id number] 2.16.84 0.1.998205.3.579.2.9 1996 Unknown [id number] 2.16.84 0.1.734784.3.579.2.1258 1996 Unknown [id number] 2.16.84 0.1.003884.3.579.2.1258 1996 Unknown [id number] 2.16.84 0.1.564785.3.579.2.1258 1996 Unknown [id number] 2.16.84 0.1.804193.3.579.2.1259 1959 Unknown [id number] Unknown [id number] Unknown [id number] Unknown [id number] 2.16.8 40.1.495424.3.579.2.531 Unknown [id number] 2.16.8 40.1.184246.3.579.2.531 Unknown [id number] 2.16.8 40.1.005275.3.579.2.531 Unknown [id number] 2.16.8 40.1.733068.3.579.2.531 Unknown [id number] 2.16.8 40.1.525343.3.579.2.531 Unknown [id number] 2.16.8 40.1.939943.3.579.2.531 Unknown [id number] 2.16.8 40.1.680667.3.579.2.531 Unknown [id number] 2.16.8 40.1.421108.3.579.2.531 Unknown [id number] 2.16.8 40.1.261336.3.579.2.531 Unknown [id number] 2.16.8 40.1.385845.3.579.2.531 Unknown [id number] 2.16.8 40.1.490634.3.579.2.531 Unknown [id number] 2.16.8 40.1.205893.3.579.2.531 Unknown [id number] 2.16.8 40.1.531989.3.579.2.531 Unknown [id number] 2.16.8 40.1.930275.3.579.2.531 Social History Date Type Detail Facility Start: 07-14-2022 End: 03-21-2024 No alcohol use No alcohol use [place] [address] DO Work Phone: Start: 12-29-2020 End: 08-04-2023 Tobacco smoking status NHIS Never smoked tobacco (finding) [facility] Start: 1996 Sex Assigned At Female [facility] Start: 07-14-2022 End: 03-21-2024 Sex Assigned At [employer] Other Tobacco smoking status Never [facility] Tobacco smoking status NHIS Tobacco smoking consumption unknown [facility] Start: 1996 Sex Assigned At Not on file [facility] Start: 04-17-2022 End: 07-14-2022 Exposure to SARS-CoV-2 (event) Not sure [facility] Start: 07-14-2022 End: 2024 Tobacco use and exposure Smokeless tobacco non-user [facility] Start: 07-14-2022 End: 09-19-2024 Alcohol intake Lifetime non-drinker (finding) [facility] Start: 07-13-2022 Gender identity Identifies as female gender (finding) [facility] Start: 02-16-2024 [facility] Start: 03-19-2015 End: 09-22-2024 Sex Female (finding) [employer] [facility] Comment on above: Denies Tobacco smoking status No Smoking Status Entered [facility] NEGATED: Highlighted rowStart: NINF History of tobacco use Passive smoker [facility] Medical Equipment Procedure Code Equipment Code Equipment Origin al Text Equipment Identifier Dates Pen [place] [id number] X 5 MM Start: 05-18-2022 Goals Date Patient Goal Desired Activity /State Personal health goal Functional Status Date Assessment Result Facility 09-06-2024 Functional Status N/A [facility] 09-05-2024 Functional Status N/A [facility] 09-05-2024 Functional Status N/A [facility] 03-18-2024 Functional Status N/A [facility] 09-29-2023 Functional Status N/A [facility] 03-22-2023 Functional Status N/A [facility] 02-18-2022 Functional Status N/A [facility] Clinical Notes 01-14-2022 to 09-19-2024 Aleisha [...] H/O calculus of kidney during Tiffani's disease ([facility]) 02/2022 History of Obesity (BMI 30-39.9) Pericarditis HISTORY PAST MEDICAL HISTORY SOCIAL HISTORY Past Medical History: Diagnosis Date Anxiety Blood type, Rh positive H/O calculus of kidney during Tiffani's disease ([facility]) 02/2022 History of Obesity (BMI 30-39.9) [...] nursing note reviewed. Exam conducted with a colored liquid plastic applier present. Vitals: Estimated body mass index is [...] Brain Way DO documented in this encounter [facility] 09-07-2024 History of Presen t illness [...] H/O calculus of kidney during Tiffani's disease ([facility]) 02/2022 History of Obesity (BMI 30-39.9) [...] of: [place] documented in this encounter [facility] 09-07-2024 Note History and Physical HOSPITAL [...] scheduled. Rogelio Nath M.D. leeroy Dictated: 09/05/2024 [id number] Transcribed: 09/05/2024 [facility] Comment on above: Result Comment: Elec tronically Signed By: Pham GALLAGHER, Rogelio Robins\.br\Date and Time Signed: 09/07/24 08:38 EST 09-06-2024 Hospital Discharg e instructions Patient Education 09/06/2024 16:15:07 Concussion, Adult, [id number] Concussion, Adult A concussion is a brain [...] if you are dizzy. General instructions Take emwu-lko-jzsuqff and prescription medicines only as told by your doctor. Avoid taking strong pain medicines (opioids) after a concussion. Do not drink alcohol until your doctor says you can. Watch your symptoms and tell other people to do the same. Other problems can occur after a concussion. Tell your jewelry bench worker, teachers, school nurse, school counselor, head strength and conditioning coach, or marine animal trainer about your injury and symptoms. [...] the National Suicide Prevention Lifeline at or 222. This is open 24 hours a day. Text the Crisis Text Line at 007882. This information is not intended to replace advice given to you by your health care provider. Make sure you discuss any questions you have with your health care provider. Document Revised: 12/25/2022 Document Reviewed: 12/25/2022 [employer] Patient Education 2023 [employer] Follow Up Care 09/06/2024 13:58:27 With:DARWIN JONES Address: [address] [place] [address] [place] [address] [phone] Business (1) When:09/09/2024 16:14:40 Comments:Call to schedule a follow-up appointment with your primary care provider. Use Zofran as needed for nausea/vomiting. Return to the ED with any new or worsening symptoms. [facility] 09-06-2024 Note ED Patient Education Note [...] you are dizzy. General instructions ??? Take kkzz-abx-pgplryy and prescription medicines only as told by your doctor. ??? Avoid taking strong pain medicines (opioids) after a concussion. ??? Do not drink alcohol until your doctor says you can. ??? Watch your symptoms and tell other people to do the same. Other problems can occur after a concussion. ??? Tell your jewelry bench worker, teachers, school nurse, school counselor, head strength and conditioning coach, or marine animal trainer about your injury and symptoms. [...] You have any (more content not included)... [facility] 09-06-2024 Evaluation + Plan note [...] date 09/06/24 15:25:00 EST, 09/06/24 15:25:00 EST [facility] 01-21-2025 NoteDischarge Instructions Given Worsening The following Patient Education Materials have been given to the patient: ~~ EducationMaterialFisher [employer] Medical [id number] Evaluation + Plan note Extracted from: Title:ED [...] Diagnostic Tests Pending * Urine Culture 09/05/24 [facility] [id number] Hospital Discharge instructions Patient Education 09/05/2024 04:35:45 Syncope, Adult, Lcit-sa-Esvn Syncope, Adult Syncope is when you pass [...] right away. Call your local emergency services (271 in the [place] Follow these instructions at [...] you until you feel better. Medicines Take wezz-mho-ytoqnvg and prescription medicines only as told by [...] provider. Document Revised: 12/11/2021 Document Reviewed: 12/11/2021 [employer] Patient Education 2023 [employer]. 09/05/2024 04:35:45 Nausea and Vomiting, Adult, Zaab-ca-Ujxb Nausea and Vomiting, Adult Nausea is feeling [...] fruit juice). ?Low-calorie sports drinks. Eat bland, jvtj-nw-gdqwhv foods in small amounts as you are able, such as: ?Bananas. ?Applesauce. ?Rice. ?Low-fat (lean) meats. ?Northlake. ?Crackers. Avoid drinking fluids that have a lot of sugar or caffeine in them. This includes energy drinks, sports drinks, and soda. Avoid alcohol. Avoid spicy or fatty foods. General instructions Take mxef-ams-tvzcoln and prescription medicines only as told by your doctor. Drink enough fluid to keep your pee (urine) pale yellow. Wash your hands often with soap and water for at least 20 seconds. If you cannot use soap and water, use hand cnc maintenance mechanic. Make sure that everyone in your home [...] your doctor about eating and drinking. Take kjuy-uuj-oictoqi and prescription medicines only as told by your doctor. Contact your doctor if your symptoms get worse or you have new symptoms. Keep all follow-up visits. This information is not intended to replace advice given to you by your health care provider. Make sure you discuss any questions you have with your health care provider. Document Revised: 02/06/2022 Document Reviewed: 02/06/2022 [employer] Patient Education 2023 [employer]. 09/05/2024 04:35:45 Diarrhea, Adult, Yzig-cl-Qmcg Diarrhea, Adult Diarrhea is when you pass [...] regular sports drinks. ?Avoid alcohol. Eat bland, ltfq-mx-ilkamg foods in small amounts as you are able. These foods include: ?Bananas. ?Applesauce. ?Rice. ?Low-fat (lean) meats. ?Northlake. ?Crackers. Avoid spicy or fatty foods. Medicines Take flus-jlk-xxrvayo and prescription medicines only as told by your doctor. If you were prescribed antibiotics, take them as told by your doctor. Do not stop taking them even if you start to feel better. General instructions Wash your hands often using soap and water for 20 seconds. If soap and water are not available, usehand cnc maintenance mechanic. Others in your home should wash their [...] provider. Document Revised: 01/19/2023 Document Reviewed: 01/19/2023 [employer] Patient Education 2023 [employer]. 09/05/2024 04:35:45 Dehydration, Adult, Lcha-iz-Ujlm Dehydration, Adult Dehydration is a condition in [...] or sea (high in altitude). The thinner, spray drier air causes more fluid loss. Doing [...] of fat or sugar. General instructions Take gyom-jxa-zzvwtms and prescription medicines only as told by [...] provider. Document Revised: 03/01/2023 Document Reviewed: 03/01/2023 [employer] Patient Education 2023 [employer]. 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 Way for further evaluation management. Please return to the ED for any new or worsening symptoms. [facility] [id number] NoteProgress Note-Nurse @[id number] OB RN arrived in patient room in [...] about admission for further evaluation on OB unit.[facility]01-21-2025 NoteED Patient Education Note Gastroenterology [...] ? Low-calorie sports drinks. ??? Eat bland, ylff-so-xeefvu foods in small amounts as you are able, such as: ? Bananas. ? Applesauce. ? Rice. ? Low-fat (lean) meats. ? Northlake. ? Crackers. ??? Avoid drinking fluids that have a lot of sugar or caffeine in them. This includes energy drinks, sports drinks, and soda. ??? Avoid alcohol. ??? Avoid spicy or fatty foods. General instructions ??? Take hfnw-egk-ofzofrw and prescription medicines only as told by your doctor. ??? Drink enough fluid to keep your pee (urine) pale yellow. ??? Wash your hands often with soap and water for at least 20 seconds. If you cannot use soap and water, use hand cnc maintenance mechanic. ??? Make sure that everyone in your [...] doctor about eating and drinking. ??? Take rtwp-cqp-mvzwwvj and prescription medicines only as told by your doctor. ??? Contact your doctor if your symptoms get worse or you have new symptoms. ??? Keep all follow-up visits. This information is not intended to replace advice given to you by your health care provider. Make sure you discuss any questions you have with your health care provider. Document Revised: 02/06/2022 Document Reviewed: 02/06/2022 [employer] Patient Education ? 2023 [employer] Infectious Disease Diarrhea, Adult Diarrhea is [...] Take an ORS (ora (more content not included)...[facility] 08-25-2024 Evaluation note* Diagnosis Onset Date Resolution Status Admit Date Class 2 obesity with body ma ss index (BMI) of 37.0 to 37.9 in adult acute August 25 11:56am Tiffani's disease acute 2024 11:56am Hypothyroidism acute August 252024 11:56am Mild left ventricular hypertrophy acute August 25 11:56am Second trimester acute August 25, 2024 11:56am [facility] Work Phone: 1(118) 773-148101-08-2025 History of Present illness Narrative* Aleisha Abreu [...] H/O calculus of kidney during Tiffani's disease ([facility]) 02/2022 History of Obesity (BMI 30-39.9) Pericarditis HISTORY PAST MEDICAL HISTORY SOCIAL HISTORY Past Medical History: Diagnosis Date Anxiety Blood type, Rh positive H/O calculus of kidney during Tiffani's disease ([facility]) 02/2022 History of Obesity (BMI [...] nursing note reviewed. Exam conducted with a colored liquid plastic applier present. Vitals: Estimated body mass index is [...] of: Brain Way DO documented in this encounterCooper County Memorial [id number] History of Present illness Narrative* Aleisha Abreu [...] H/O calculus of kidney during Tiffani's disease ([facility]) 02/2022 History of Obesity (BMI 30-39.9) Pericarditis HISTORY PAST MEDICAL HISTORY SOCIAL HISTORY Past Medical History: Diagnosis Date Anxiety Blood type, Rh positive H/O calculus of kidney during Tiffani's disease ([facility]) 02/2022 History of Obesity (BMI [...] nursing note reviewed. Exam conducted with a colored liquid plastic applier present. Vitals: Estimated body mass index is [...] of: Brain Way DO documented in this encounterCooper County Memorial HospitalEiprplrezk66-49-4668 History of Present illness Narrative* Laura Herron [...] male Have you been seen here at [facility] in a previous ? No Recent ER visits or hospitalizations? no Bring blood sugar log or meter with you today? (Please bring them with you for every visit at [facility]) n/a Flu vaccine (Jun-October)? Yes Any [...] effusion. Also she was then evaluated by mail order clerk who told her that she had pericarditis and that resolved with a taking Motrin however she did not had an echocardiogram. Saw Dr. Coronado. 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 Yes NotIn System Ref Prov ie314-mqho-alfpv acid ( 19) 29 mg iron- 1 [...] would recommend she establishes care with a skip loader for it to be further evaluated 7. [...] Please refer her locally to see a skip loader for the incidental finding on the CT [...] Hayden Reilly MD, FACOG (she/hers) Maternal- Medicine [facility] [address] [facility] [address] [place] [address] This document was created with [employer] technology. Though I make every effort to review the dictation as it is transcribed, on occasion the spoken word can be misinterpreted by the technology leading to inappropriate words, phrases, or sentences. This note is addressed to the requesting provider as a consultation for clinical guidance. Specificmedical abbreviations are occasionally used and those are generally approved by the [place]?Board of?Obstetrics and?Gynecology?as well as?Lauryn lund abbreviations. The above plan of care was based solely on the diagnoses for which a consultation was requested. ?More frequent testing may be indicated based on her other medical/obstetrical conditions. The management of other or medical conditions is beyond the scope of requested consultation and will c ontinue to be followed by the primary business development representative or primary care provider. Note to patient: [...] opinion of the practitioner. documented in this encounterUniversity Hospitals Elyria [facility] Center11-07-2024 Radiology Diagnostic study [facility] [place] [address] [place] [address] Ultrasound Report Signed Patient: Tawnya Herring MR#: [id number] : 1995 Acct:[id number] Age/Sex: 28 / F ADM Date: 4 Loc: Room: Type: [facility] Attending Dr: Brain Way DO Ordering [...] Norton Jr., D.OEfren06/22/2024 4:00 PM Dictation Location: [facility] [email or web address] Tech: Rae De Paz Transcribed By: AGUILAR 06/22/24 1600 Dictated By: Zay Norton Jr, DO 06/22/24 1552 Signed By: 06/22/24 1600 [facility]10-28-2024 History of Present illness Narrative * [...] H/O calculus of kidney during Tiffani's disease ([facility]) 02/2022 History of Obesity (BMI 30-39.9) Pericarditis HISTORY PAST MEDICAL HISTORY SOCIAL HISTORY Past Medical History: Diagnosis Date Anxiety Blood type, Rh positive H/O calculus of kidney during Tiffani's disease ([facility]) 02/2022 History of Obesity (BMI [...] pericarditis post last . We will send [facility] referral Follow Up: Patient is to return to office in 4 week for routine OB appointment. Documented by HIPOLITO Shore on behalf of: Brain Way DO documented in this encounterCooper County Memorial HospitalAeqydhoacl39-84-7089 Evaluation note* Diagnosis Onset Date Resolution Status Admit Date Well adult exam noneactive May 11, 2024 10:46am [facility] Work Phone: 1(630) 361-814109-25-2024 History of Present illness Narrative* Aleisha Abreu, QUALITY CONTROL DIRECTOR - 05/10/2024 1:50 PM EDT Reason for [...] H/O calculus of kidney during Tiffani's disease ([facility]) 02/2022 History of Obesity (BMI 30-39.9) Pericarditis HISTORY PAST MEDICAL HISTORY SOCIAL HISTORY Past Medical History: Diagnosis Date Anxiety Blood type, Rh positive H/O calculus of kidney during Tiffani's disease ([facility]) 02/2022 History of Obesity (BMI [...] nursing note reviewed. Exam conducted with a colored liquid plastic applier present. Vitals: Estimated body mass index is [...] of: Brain Way DO documented in this encounterCooper County Memorial HospitalMcvfighxbw79-52-1859 History of Present illness Narrative* Coral Rg [...] H/O calculus of kidney during Tiffani's disease ([facility]) 02/2022 History of Obesity (BMI 30-39.9) Pericarditis HISTORY PAST MEDICAL HISTORY SOCIAL HISTORY Past Medical History: Diagnosis Date Anxiety Blood type, Rh positive H/O calculus of kidney during Tiffani's disease ([facility]) 02/2022 History of Obesity (BMI [...] nursing note reviewed. Exam conducted with a colored liquid plastic applier present. Vitals: Estimated body mass index is [...] of: Brain Way DO documented in this encounterCooper County Memorial HospitalJrnemjtdzn51-27-4623 History of Present illness Narrative* Thelma Elizabeth [...] or undercooked meat, and stay away from [facility]. Patient has also been advised to [...] by: Thelma Elizabeth LPN documented in this encounterCooper County Memorial HospitalMzpklwaqwv71-18-8638 Hospital Discharge instructions Patient Education 03/18/2024 12:15:03 [...] provider. Document Revised: 01/31/2021 Document Reviewed: 01/31/2021 [employer] Patient Education 2022 [employer] 03/18/2024 12:15:03 Subchorionic Hematoma Subchorionic Hematoma [...] provider. Document Revised: 04/28/2021 Document Reviewed: 04/28/2021 [employer] Patient Education 2022 [employer]. Follow Up Care 03/18/2024 08:08:01 With:Rogelio Nath Address: [address], [address] [address]- Business (1) When:03/21/2024 11:54:39 With:[facility] Address: [address] [place] [phone] Business (1) When:Within 3 Day(s) [facility] 08-03-2024 NoteED Patient Education Note Obstetrics [...] provider. Document Revised: 01/31/2021 Document Reviewed: 01/31/2021 [employer] Patient Education ? 2022 [employer]. Subchorionic Hematoma A hematoma is a collection of blood outside of the blood vessels. A subchorionic hematoma is a collection of blood between the outer wall of the embryo (chorion) and the inner wall of the uterus. This condi (more content not included)...[facility]04-04-2024 NoteHNO ID: [id number] Author: RUBY WHITTINGTON MD Service: ? Author [...] RTN 1 year. Ruby Whittington MD Endocrinology StaffDeanna Ville [address]-04-2024 History of Present illness Narrative* Ruby Whittington [...] Whittington MD Endocrinology Staff documented in this encounterWadsworth-Rittman Hospital04-04-2024 Instructions* Patient Instructions* Odalis Greene - 11/18/2023 7:58 AM EDT Thank you for choosing the [facility] Department of Endocrinology, Diabetes and Metabolism. Did you know that you need to call 48 hours in advance of your scheduled visit, if you are unable to make your appointment? [facility] [place] thanks you for your commitment, because patients not showing to their appointment results in a lost opportunity for patients to receive world [facility] health care at the [facility]. To Cancel an appointment, please choose one of the following: - Call the Appointment Call Center at [phone] - From [employer], Go to Appointments - Cancel Appts If cancelling, consider your need to reschedule to prevent further delays in your care. To Schedule an appointment, please choose one of the following: - Call the Appointment Call Center at [phone] - From [employer], Go to Appointments - Request an Appt documented in this encounterWadsworth-Rittman Hospital02-14-2024 Hospital Discharge instructions Patient Education 09/29/2023 [...] numbers. This can be done either in Nepalese ([place] or metric measurements. Note that charts and online BMI calculators are available to help you find your BMI quickly and easily without having to do these calculations yourself. To calculate your BMI in Nepalese ([place] measurements: 1.Measure your weight in pounds [...] Centers for Disease Control and Prevention: www.cdc.gov [place] Heart Association: www.heart.org National Heart, Lung, and Blood [place]: www.nhlbi.nih.gov Summary Body mass index (BMI) is a number that is calculated from a person's weight and height. BMI may help estimate how much of a person's weight is composed of fat. BMI can help identify thosewho may be at higher risk for certain medical problems. BMI can be measured using Nepalese measurements or metric measurements. BMI charts are used to identify whether you are underweight, normal weight, overweight, or obese. This information is not intended to replace advice given to you by your health care provider. Make sure you discuss any questions you have with your health care provider. Document Revised: 04/24/2020 Document Reviewed: 03/01/2020 [employer] Patient Education 2022 [employer]. 09/29/2023 11:04:59 Sinus Infection, Adult Sinus Infection, [...] saline washes). ?Medicines that treat allergies (antihistamines). ?Acds-aqr-rmqbpfh pain relievers. If caused by bacteria, your [...] at home: Medicines Take, use, or apply bqbi-etv-rwpxxxj and prescription medicines only as told by [...] and water are not available, use hand cnc maintenance mechanic. Do not smoke. Avoid being around people [...] provider. Document Revised: 07/07/2022 Document Reviewed: 07/07/2022 [employer] Patient Education 2022 [employer]. Follow Up Care 09/29/2023 09:12:00 With:DARWIN JONES CNP Address: [address] [place] [address] [place] [address]- When: Unknown [facility] 02-06-2024 Evaluation note* Encounter [...] BMI is required on scripts in the [facility]. Sep, Other *Progress note was completed with the assistance of voice recognition software for dictation purposes. Please excuse any grammatical errors that were not corrected during review process. [employer] Other 01-10-2024 Evaluation note* Encounter Date Diagnosis [...] that were not corrected during review process. [employer] Other 12-01-2023 Miscellaneous Notes* Telephone Encounter - Kenan Gomez - 07/16/2023 9:39 AM EST LVM to let patient know their appt has been rescheduled with Dr. Whittington. documented in this encounterWadsworth-Rittman Hospital11-08-2023 Evaluation note* Encounter Date Diagnosis Assessment [...] comfortable prescribing this medication at this time. [employer] Other 10-24-2023 NoteHNO ID: [id number] Author: Francy Gan PA-C Service: ? Author Type: Physician Development Architect Type: Progress Notes Filed: 06/08/2023 2:53 PM [...] will be in touch with results via Hypertension Diagnosticst HPI: Tawnya is a 27 year old [...] testing/treatment Medical Decision Making Level: 3 - [facility] History of Present illness Narrative* Francy [...] will be in touch with results via All Copy Productshart HPI: Tawnya is a 27 year old [...] Level: 3 - Low documented in this encounterWadsworth-Rittman Hospital10-24-2023 Instructions* Patient Instructions* Francy Gan PA-C - 06/08/2023 2:16 PM EDT Continue the omeprazole for another 1.5 months documented in this encounterWadsworth-Rittman Hospital10-11-2023 Evaluation note* Encounter Date Diagnosis Assessment [...] that were not corrected during review process. [employer] Other 09-13-2023 Evaluation note* Encounter Date Diagnosis [...] Discussed short term 8 week course vs. mcfp management. Discussed pros and cons of taking [...] that were not corrected during review process. [employer] Other 09-01-2023 Evaluation note* Encounter Date Diagnosis [...] SCANNED INTO PATIENT CHART AND FAXED TO [employer]. Apr, Other We did briefly discussed the [...] that were not corrected during review process. [employer] Other 08-08-2023 Hospital Discharge instructions Patient Education 03/22/2023 22:52:44 Urinary Tract Infection, Adult, Qzwx-lt-Rqqw Urinary Tract Infection, Adult A urinary tract [...] Follow these instructions at home: Medicines Take xxeu-xaf-adrqowv and prescription medicines only as told by [...] provider. Document Revised: 03/14/2021 Document Reviewed: 03/14/2021 [employer] Patient Education 2022 [employer]. Follow Up Care 03/22/2023 19:54:03 With:DARWIN JANEJILLIAN Address: [address] [facility] [place] [phone] Business (1) When:03/25/2023 Comments:Follow-up with your primary care provider in 3 to 5 days. If symptoms worsen, do not improve, or new symptoms arise please report back to emergency department for further evaluation. [facility]08-07-2023 Evaluation + Plan note Diagnostic Tests Pending * Urine Culture 03/22/23 [facility]03-02-2023 Evaluation note* Encounter Date Diagnosis Assessment Notes Treatment Notes Treatment Clinical Notes Oct, Nausea & vomiting (ICD-10 - R11.2) [employer] Other 02-20-2023 Evaluation note* Encounter Date Diagnosis [...] Encounter for weight management (ICD-10 - Z76.89) [employer] Other 02-13-2023 Miscellaneous Notes* Addendum Note - [...] daily. Ruby Whittington MD documented in this encounterWadsworth-Rittman Hospital01-18-2023 Evaluation note* Encounter Date Diagnosis Assessment [...] Encounter for weight management (ICD-10 - Z76.89) [employer] Other 01-10-2023 Evaluation note* Encounter Date Diagnosis [...] as inspiration Patient set the following goals: [employer] Other 12-16-2022 Evaluation note* Encounter Date Diagnosis [...] E06.3) She was recently seen by an sustainable systems analyst at [facility] for elevated TSH. She is currently on adequate supplementation and will follow up with them. Jul, Daytime sleepiness (ICD-10 - R40.0) Continue to work on good sleep hygiene and control factors that she can.This could also improve with additional water intake. Jul, Mild depression (ICD-10 - F32.9) Jul, Encounter for weight management (ICD-10 - Z76.89) [employer] Other 11-29-2022 History of Present illness Narrative* [...] a Thyroid problem. Referring Physician: Darwin Easterwood, 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, SCAFFOLD WORKER Reason for visit: Hypothyroidism due to Tiffani's [...] Endocrinology Staff CC: Darwin Jones APRN, CNP. [address] [place] [address] documented in this encounterWadsworth-Rittman Hospital11-29-2022 Instructions* Patient Instructions* Soo Begum Ma - 07/14/2022 8:46 AM EST Thank you for choosing the [facility] Department of Endocrinology, Diabetes and Metabolism. Did you know that you need to call 48 hours in advance of your scheduled visit, if you are unable to make your appointment? The [facility] [place] thanks you for your commitment, because patients not showing to their appointment results in a lost opportunity for patients to receive world class health care at the [facility]. To Cancel an appointment, please choose one of the following: - Call the Appointment Call Center at [phone] - From [employer], Go to Appointments - Cancel Appts If cancelling, consider your need to reschedule to prevent further delays in your care. To Schedule an appointment, please choose one of the following: - Call the Appointment Call Center at [phone] - From [employer], Go to Appointments - Request an Appt documented in this encounter[facility] Evaluation [facility]* Encounter Date Diagnosis Assessment [...] samples and titrate her up slowly until [facility] insurance kicks in in August. We [...] will discuss at later date if needed. [facility] Other 10-20-2022 Evaluation note* Encounter Date Diagnosis [...] Pt understood and agreed to tx plan. [facility] Other 10-12-2022 Evaluation note* Encounter Date Diagnosis [...] patient set personal goal using given handout. [facility] Other 10-10-2022 Miscellaneous Notes* Telephone Encounter - Linn Hancock - 05/25/2022 2:35 PM EDT LVM for patient that appt on 05/[address] George has been rescheduled to 07/08 at [facility] with Dr. Robretson. sending mail reminder as well. 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 Her Mallampati is not [...] of a comprehensive approach to obesity management [facility] Other 09-02-2022 Evaluation note* Encounter Date Diagnosis [...] to start the weight management program at [facility] in the coming months.Nothing further needed [...] that were not corrected during review process. [facility] Other 07-07-2022 Hospital Discharge instructions Patient Education [...] Follow these instructions at home: Medicines Take kxja-ugl-fpreouw and prescription medicines only as told by [...] 04/27/2002 Document Revised: 08/05/2018 Document Reviewed: 05/14/2017 [employer] Patient Education 2020 [employer] 02/18/2022 22:49:49 Migraine Headache Migraine Headache [...] Follow these instructions at home: Medicines Take sxoz-yin-bxvgqug and prescription medicines only as told by your health care provider. Ask your health care provider if the medicine prescribed to you: ?Requires you to avoid driving or using heavy machinery. ?Can cause constipation. You may need to take these actions to prevent or treat constipation: ?Drink enough fluid to keep your urine pale yellow. ?Take tdox-kkr-simdbam or prescription medicines. ?Eat foods that are [...] 08/02/2006 Document Revised: 11/24/2019 Document Reviewed: 09/14/2019 [employer] Patient Education 2020 [employer]. Follow Up Care 02/18/2022 20:32:17 With:DARWIN JONES Address: [facility] [facility] [place] [address] [phone] Business (1) When:Within 3 Day(s) [facility]07-06-2022 Evaluation + Plan noteExtracted from: Title:ED [...] voices understanding and is agreeable to plan. [facility]07-06-2022 Evaluation note* Encounter Date Diagnosis Assessment [...] and remind her of lab draw at [facility]. Feb, Thyromegaly (ICD-10 - E01.0) Discussed [...] that were not corrected during review process. [facility] Other 07-01-2022 History general Narrative - Reported* Type Description Date Medical History Anxiety Medical History pericardi tis- Resolved cardiology signed off Medical History Kidney stones during Medical History Tiffani's disease February 2022 Medical History Abnormal thyroid ult rasound February 2022 work-up pending by ENT Surgical History 2018 Surgical History Cystoscopy 05/2021 Surgical History 2020 Hospitalization History See surgical hx [facility] Other 07-01-2022 History general Narrative - Reported* Type Description Date Medical History Anxiety Medical History pericardi tis- Resolved cardiology signed off Medical History Kidney stones during Medical History Tiffani's disease February 2022 Medical History Abnormal thyroid ult rasound February 2022 work-up pending by ENT Medical History Parathyroid adenoma Surgical History 2019 Surgical History Cystoscopy 05/2021 Surgical History 2020 Hospitalization History See surgical hx [facility] Other 06-29-2022 Evaluation note* Encounter Date Diagnosis [...] that were not corrected during review process. 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 documented in this encounter [facility]* Diagnosis 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 documented in this encounter [facility]* Diagnosis Dysphagia, unspecified type- Primary LPRD (laryngopharyngeal reflux disease) Other diseases of larynx documented in this encounter [facility]* Diagnosis Onset Date Resolution Status Obesity [place] Work Phone: Evaluation note* Diagnosis 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 Irregular menstruation, unspecified Female infertility Female infertility of unspecified origin Calculus of kidney documented in this encounter [facility]* Diagnosis Onset Date Resolution Status Obesity acute Class 2 obesity with body ma ss index (BMI) of 37.0 to 37.9 in adult [facility] Work Phone: evaluation note* Diagnosis Onset Date Resolution Status Obesity acute Class 2 obesity with body ma ss index (BMI) of 37.0 to 37.9 in adult acute Class 2 obesity with body ma ss index (BMI) of 37.0 to 37.9 in adult [place] Work Phone: evaluation note* Diagnosis Onset Date Resolution Status Class 2 obesity with body ma ss index (BMI) of 37.0 to 37.9 in adult acute Class 2 obesity with body ma ss index (BMI) of 37.0 to 37.9 in adult [place] Work Phone: evaluation note* Diagnosis Onset Date Resolution Status Class 2 obesity with body ma ss index (BMI) of 37.0 to 37.9 in adult [place] Work Phone: evaluation note* Diagnosis Onset Date Resolution Status Well adult exam noneactive [facility] Work Phone: evaluation note* Diagnosis Second trimester state, incidental 18 weeks gestation of Screening, , for anatomic survey Encounter for anatomic survey [facility] Diagnosis 20 weeks gestation of [...] type Depression affecting documented in this encounter [facility]* Diagnosis 22 weeks gestation of Second trimester state, incidental Nausea and vomiting during Diabetes mellitus screening Screening for diabetes mellitus [facility] Diagnosis History of pericarditis- Primary Mild concentric left ventricular hypertrophy (LVH) 25 weeks gestation of documented in this encounter [facility]* Diagnosis Missed menses documented in this encounter [facility]* Diagnosis First trimester state, incidental Well woman exam with routine gynecological exam Routine gynecological examination Screen for STD (sexually transmitted disease) Screening examination for venereal disease Vaginal discharge Leukorrhea, not specified as infective documented in this encounter [facility]* Diagnosis Second trimester state, incidental documented in this encounter [facility]* Diagnosis 29 weeks gestation of Third trimester state, incidental Gastroesophageal reflux in documented in this encounter [facility]* Diagnosis Third trimester state, incidental 31 weeks gestation of size inconsistent with dates documented in this encounter [facility]* Diagnosis 32 weeks gestation [...] History 2020 Hospitalization History See surgical hx [facility] Other History general Narrative - Reported* Type [...] History 2020 Hospitalization History See surgical hx [facility] Other History general Narrative - Reported* Type [...] History 2020 Hospitalization History See surgical hx [facility] Other History of Present illness Narrative* Patient [...] no other testing or intervention appears necessary. -[facility] DO Work Phone: Hospital course Narrative No data available for this section [facility] HospitalInstructionsNot on filedocumented in this encounter [facility]* Attachments The following attachments cannot be sent through Care Everywhere. * Preeclampsia (Nepalese) documented in this encounterProWood [facility] Hospital SystemInstructionsNot on file documented in this encounterProWood County Hospital SystemProgress note No data available for this section [facility] HospitalReason for referral (narrative)* Reason Dr. 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) Referral Organization [facility] Shai Moreira Referring Provider First Name Darwin Referring Provider Last Name Yasir Referring Provider Specialty Nurse Pract christine Referred Provider Specialty Endocrinolog y Referral Priority Routine [facility] Other Reason for referral (narrative)* Diagnostic Procedure Only (Routine) - Pending Review Specialty Diagnoses / Procedures Referred By Clint scott Referred To Contact XR IMAGING Diagnoses Dysphagia, unspecified type Procedures XR MODIFIED BARIUM SWALLOW W SPEECH THERAPY RADIOLOGIC EXAM SWALLOW FUNCTION CONTRAST STUDY Francy Gan PA-C [address] [place] [address] [place] [id number] Referral ID Status Reason Start Date Expiration Date Visits Requested Visits Authorized [id number] Pending Review Auto-Generat ed Referral 3 07/07/2024 1 1 [facility] Chief Complaint TAWNYA HERRING is being [...] Dysphagia, unspecifi ed type (R13.10) [facility] Referring Provider First Name Darwin Referring Provider Last Name [facility] Referring Provider Specialty Nurse Pract christine Referred Organization [facility] Referred Address [address] [place] [place], [place],[address] Referred Provider Specialty Ear, Nose an d Throat Referral Priority Routine Reason ABNORMAL US OF THYRO ID Newly discovered [employer] Diagnosis 1 Thyromegaly (E01.0) Referral Organization [facility] Referring Provider First Name Darwin Referring Provider Last Name [facility] Referring Provider Specialty Nurse Pract itcalvin Referred Provider Specialty Ear, Nose an d Throat Referral Priority Routine Additional Source Comments INFORMATION SOURCE (unrecogn ized section and content) DATE CREATED AUTHOR 09/04/2021 [employer] DATE CREATED AUTHOR AUTHOR'S ORGANIZ ATION [facility] DATE CREATED AUTHOR AUTHOR'S ORGANIZ ATION 11/22/2023 [facility] DATE CREATED AUTHOR AUTHOR'S ORGANIZ ATION 03/20/2024 [facility] DATE CREATED AUTHOR AUTHOR'S ORGANIZ ATION 08/05/2024 [facility] DATE CREATED AUTHOR AUTHOR'S ORGANIZ ATION 09/06/2024 [facility] DATE CREATED AUTHOR AUTHOR'S ORGANIZ ATION 09/08/2024 [facility] DATE CREATED AUTHOR AUTHOR'S ORGANIZ ATION 09/13/2024 [facility] DATE CREATED AUTHOR AUTHOR'S ORGANIZ ATION 09/14/2024 [facility] DATE CREATED AUTHOR AUTHOR'S ORGANIZ ATION 09/21/2024 [facility] DATE CREATED AUTHOR AUTHOR'S ORGANIZ ATION 09/23/2024 [facility] Care Teams (unrecognized [...] [address] Attending Provider Active Start: [facility] 2023 End: November 01, 2023 Team Status: [...] Member Role Status Dates Darwin Jones , 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 Primary Care Provider Active Addi Ortega DO [facility] Attending Provider Active Team Status: Inactive Member Role Status Dates Darwin Joneserwood , 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 Primary Care Provider Active [address] Attending Provider Active Team Status: Active Member Role Status Dates Darwin Joneserwood , 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 Primary Care Provider Active Ofelia Hester APRN Active Ofelia Hester , 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 Attending Provider Active Team Status: Inactive Member Role Status Dates Darwin Joneserwood , 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 Primary Care Provider Active Ofelia Hester , 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 Attending Provider Active Team Status: Inactive Member Role Status Dates PHYSICIAN NO FAMILY Primary Care Provider Active Addi Ortega DO [facility] Attending Provider Active Team Status: Active Member Role Status Dates PHYSICIAN NO FAMILY Primary Care Provider Active Team Status: Inactive Member Role Status Dates Darwin Joneserwood , 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 Primary Care Provider, Attend ing Provider Active Team Status: Inactive Member Role Status Dates Darwin Jones , 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 Primary Care Provider Active Saad Valera DO Attending Provider Active Skiver Operator Relationship Specialty Start Date End Date Easterwood, Darwin, SCAFFOLD WORKER [address] [address] Referring Family Medicine 04/22/22 Skiver Operator Relationship Specialty Start Date End Date Easterwood, Darwin, SCAFFOLD WORKER [address] [address] Referring Family Medicine 04/22/22 Team Status: Inactive Member Role Status Dates Darwin Joneserjillian , 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 Primary Care Provider Active Jeovanny Quiros DO Emergency Provider Active Skiver Operator Relationship Specialty Start Date End Date Easterwood, Darwin, SCAFFOLD WORKER [address] [address] Referring Family Medicine 04/22/22 Skiver Operator Relationship Specialty Start Date End Date Easterwood, Darwin, SCAFFOLD WORKER [address] [facility] [address] [place] [address] Referring Family Medicine 04/22/22 Team Status: Inactive Member Role Status Dates Darwin Jones APRN Attending Provider Active Start: July 23, 2023 End: July 23, 2023 Team Status: Inactive Member Role Status Dates Darwin Jones APRN Attending Provider Active Start: August 25, 2023 End: August 25, 2023 Skiver Operator Relationship Specialty Start Date End Date Darwin Jones CNP [address] [place] [id number] Referring Family Medicine 04/22/22 Team Status: Inactive [...] End: April 06, 2024 Addi PERES DO [facility] Attending Provider Active Start: April 06, 2024 [...] May 24, 2024 End: May 24, 2024 Skiver Operator Relationship Specialty Start Date End Date No Pcp, [place] [address] PCP - General Family Medicine 08/19/19 Skiver Operator Relationship Specialty Start Date End Date No Pcp, [place] [address] PCP - General Family Medicine 08/19/19 Team [...] June 28, 2024 End: June 28, 2024 Skiver Operator Relationship Specialty Start Date End Date No Pcp, [place] [address] PCP - General Family Medicine 08/19/19 Team [...] George has been rescheduled to 07/08 at [facility] with Dr. Robertson. sending mail [...] or prosecute any alcohol or drug abuse patient.[facility] HospitalIn the event this information is protected by the Federal Confidentiality of Alcohol and Drug Abuse Patient Records regulations: The Federal rules restrict any use of the information to criminally investigate or prosecute any alcohol or drug abuse patient.[facility] HospitalIn the event this information is protected by the Federal Confidentiality of Alcohol and Drug Abuse Patient Records regulations: The Federal rules restrict any use of the information to criminally investigate or prosecute any alcohol or drug abuse patient.[facility] HospitalIn the event this information is protected by the Federal Confidentiality of Alcohol and Drug Abuse Patient Records regulations: The Federal rules restrict any use of the information to criminally investigate or prosecute any alcohol or drug abuse patient.[facility] HospitalIn the event this information is protected by the Federal Confidentiality of Alcohol and Drug Abuse Patient Records regulations: The Federal rules restrict any use of the information to criminally investigate or prosecute any alcohol or drug abuse patient.[facility] HospitalIn the event this information is protected by the Federal Confidentiality of Alcohol and Drug Abuse Patient Records regulations: The Federal rules restrict any use of the information to criminally investigate or prosecute any alcohol or drug abuse patient.[facility] FOR RECORDS PERTAINING TO PATIENTS WHO [...] BE BASED ON THE PRIMARY CLINICAL RECORDS. [facility] [employer] [facility]. provides no warranty or guarantee of the accuracy or completeness of information in this document.
--- NOTE | 2024-09-28 19:49 | US_ITS ---
[address] [address] Patient Name: BARBY HERRING MRN: [id number] date: 1995 Sex: F Assigned Patient Location: [facility] Current Patient Location: Accession/Order Number: [id number] Exam Date: 09/28/2024 19:56 Report Date: 09/29/2024 07:32 At the request of: GAMAL ADAN Procedure: US OB BPP w non-stress EXAMINATION: US OB BPP w non-stress HISTORY:EXCESSIVE GROWTH AFFECTING [id number] COMPARISON: Ultrasound OB biophysical 09/22/2024 TECHNIQUE: Ultrasound biophysical profile was performed in the radiology department. BREATHING MOVEMENTS: 2 GROSS BODY MOVEMENTS: 2 TONE: 2 QUALITATIVE AMNIOTIC FLUID VOLUME: 2 PRESENTATION: CEPHALIC HEART RATE: 136.36 bpm AMNIOTIC FLUID VOLUME: 23.78 cm GESTATIONAL AGE: 34 weeks 1 day US/US OB BPP w non-stress IMPRESSION: 1. Total biophysical profile score: 8 Electronically authenticated by: IRENE HARRINGTON Date: 09/29/2024 07:32
[2024-09-28 20:28] VITALS: BP 127/79; PULSE 97
== END 2024-09-28 21:25 | disposition home or self-care (01) ==
LOC: US 03:00 → FBC 19:45
PROVIDERS: PCP Nurse Practitioner Family; Visit Provider Obstetrics & Gynecology
DX: O36.63X0 Maternal care for excessive fetal growth, third trimester, not applicable or unspecified (principal); Z3A.34 34 weeks gestation of pregnancy
CPT/HCPCS: 76818

== ENCOUNTER 2024-10-02 01:12 | Outpatient (OUT) | payer OTHER, SELFPAY ==
--- OUTSIDE RECORDS SUMMARY | 2024-10-02 01:17 | XMS_ITS | CCD ---
Author Organization [facility] Care Team Providers Care Report Specialist Name Role Phone Unknown, Unknown Unavailable Unavailable Unavailable Unavailable NO FAMILY, PHYSICIAN Primary Care Provider Unava ilable DO Addi Ortega Attending Provider Darwin Jones Unavailable DARWIN JONES Primary Care Physician [phone] Lilly Luke Unavailable SHIRLEY Jones Primary Care Provider [phone] SHIRLEY Jones Attending Provider DO Saad Valera Attending Provider Ofelia Hester Unavailable [facility] AMIE Dariwn Unavailable [phone] Sima Ross Unavailable [facility] AMIE Darwin Unavailable [phone] SHIRLEY Jones Primary Care Provider SHIRLEY Hester Attending Provider [phone] SHIRLEY Jones Primary Care Provider SHIRLEY Hester Attending Provider Brain Way Attending Provider [phone] REQUEST, DR HOBSON LISTED Primary Care Unavaila ble SEAMUS ., DR YEUNG Attending Unavailable SEAMUS ., DR YEUNG Consulting Unavailable SEAMUS ., DR YEUNG Admitting Unavailable SHIRLEY Jones Primary Care Provider DO Addi Ortega Attending [facility] Care Provider DO Jeovanny Quiros Emergency Provider [phone] [facility] Care Provider DO Addi Ortega Attending Provider [facility] Attending Provider [phone] [facility] Primary Care Provider Brain Way Attending Provider [facility] Primary Care Provider Brain Way Attending Provider RUBY WHITTINGTON Attending Unavailable FRANCY GAN Attending Unavailable [facility] SHIRLEY Anaya Primary Care Provider [phone] Attending Provider [facility] Primary Care Provider DO Brain Way Attending Provider [phone] [place] Attending Unavailable Gabriel Curtis Attending Unavailable Tyrone Rock Attending Unavailable [facility] Primary Care Provider DO Brain Way Attending Provider [phone] [facility] DO Addi PERES Attending Provider [facility] Primary Care Provider [phone] Attending Provider [facility] Primary Care Provider [phone] Attending Provider Unavailable Primary Care Provider Unavailabl e No Pcp, No Pcp Primary Care Provider Unavailabl e [facility] Darwin WATSON Primary Care Provider [facility] Addi SELLERS Attending Provider Brain Way DO Attending Provider [phone] SEAMUS, BRAIN R Referring Unavailable NO PCP, NO PCP Primary Care Unavailable HAYDEN REILLY P Attending Unavailable NO PCP, NO PCP Primary Care Unavailable HAYDEN REILLY P Referring Unavailable DARCY ENRIQUEZ Attending Unavailable SEAMUS, BRAIN R Referring Unavailable NO PCP, NO PCP Primary Care Unavailable [place] [employer], Darwin Anaya Primary Care Provider Brain Way [...] BRAIN Attending Unavailable SEAMUS, BRAIN Attending [facility]available [facility] [employer], Darwin Anaya Primary Care Provider [address] [...] Brain Admitting Unavailable Seamus, Brain Attending Unavailable [place] Primary Care Unavailable Seamus, Brain Admitting Unavailable Seamus, Brain Attending Unavailable [place] brooks Primary Care Unavailable Seamus, Brain Admitting Unavailable Seamus, Brain Attending Unavailable [place] Primary Care Unavailable Seamus, Brain Admitting Unavailable Seamus, Brain Attending Unavailable [place]win Primary Care Unavailable Seamus, Brain Admitting Unavailable Seamus, Brain Attending Unavailable [facility], Darwin Anaya Primary Care Unavailable Seamus, Brain Admitting Unavailable Seamus, Brain Attending Unavailable [facility], Darwin Anaya Primary Care Unavailable [facility], Addi P Attending Unavailable [facility], Addi P Admitting Unavailable [facility], Darwin Anaya Primary Care Unavailable Seamus, Brain Admitting Unavailable [facility], Darwin J Primary Care Unavailable Seamus, Brain Attending Unavailable Seamus, Brain Admitting Unavailable [facility], Darwin J Primary Care Unavailable Seamus, Brain Attending Unavailable Seamus, Brain Attending Unavailable Seamus, Brain Admitting Unavailable [facility], Darwin J Primary Care Unavailable Allergies Allergy Classification Reported Allergen(s) Allergy Type Date of Onset Reaction(s) Facility (6 sources) No Known Medication Allergies; Translations: [No Known Medication Allergies] Propensity to adverse reactions (disorder) [facility] Repository Medications Current Medications Medication Drug [...] tablet (2 sources) Opioid Agonist Start: 06-03-2021 [place] 325 mg-5 mg oral tablet 2 tab(s), [...] day(s), # 20 tab(s), Refills(s) 0, Pharmacy: [facility], 170.2, cm, 09/29/23 10:44:00 EST, [...] day(s), # 28 cap(s), Refills(s) 0, Pharmacy: [facility], 170.2, cm, 03/22/23 20:14:00 EDT, Height/Length Dosing, 113.5, kg, 03/22/23 20:14:00 EDT, Weight Dosing Start Date: 03/22/23 Stop Date: 03/29/23 Status: Ordered Start: 07-03-2021 take 1 capsule by mo uth twice daily Keflex 500 mg Cap 500 mg = 1 cap(s), Oral, BID, # 10 cap(s), Refills(s) 0, Pharmacy: [facility], 170, cm, 06/27/21 10:56:00 EST, Height/Length [...] Start: 08-25-2024 take [address] [facility] once daily Levothyroxine 100 mcg capsule Active 100 MCG PO Daily August 25, 2024 12:00am Start: 06-29-2024 End: 12-21-2024 take 1 tablet by mouth once daily levothyroxine (Synthroid, Levoxyl) 100 MCG tablet Indications: Abnormal TSH Take 1 tablet (100 mcg) by mouth Daily 30 tablet 2 09/22/2024 12/21/2024 Active Start: 10-07-2023 End: 11-17-2024 take 1 [...] day(s), # 21 tab(s), Refills(s) 0, Pharmacy: [facility], 170.2, cm, 09/29/23 10:44:00 EST, [...] omeprazole 20 mg delayed release oral capsule (19 sources) Proton Pump Inhibitor Start: 08-23-2024 End: [...] Apr, Active take [address] [facility] once daily omeprazole (PRILOSEC) 20 [...] Date: 02/18/22 Stop Date: 02/21/22 Status: Ordered Evf695-Hpaekcu Fumarate-Fa () 28-800 mg-mcg Tablet (20 sources) Start: 12-29-2020 Rdk781-Fklwjex Fumarate-Fa () 28-800 mg-mcg Tablet Active TAB PO December 29, 2020 3:43pm Start: 12-29-2020 End: 10-07-2023 Omk910-Fkyjyff Fumarate-Fa ( ) 28-800 mg-mcg Tablet Discontinued TAB PO December 28, 2020 11:00pm October 07, 2023 6:06pm Start: 12-29-2020 End: 10-07-2023 Ntk678-Rvnwrhb Fumarate-Fa ( ) 28-800 mg-mcg Tablet Discontinued TAB PO December 29, 2020 12:00am October 07, 2023 7:06pm Start: 12-29-2020 Thb335-Gayrsrl Fumarate-Fa () 28-800 mg-mcg Tablet Active TAB PO December 28, 2020 11:00pm Start: 12-29-2020 Vpc489-Gvjjmuc Fumarate-Fa () 28-800 mg-mcg Tablet Active TAB PO December 29, 2020 12:00am zzoxwb78-xlni fum-folic ac-o m3 (One Daily ) (12 sources) Start: 08-25-2024 ouruyv20-rjhk fum-folic ac-om3 (One Daily ) Active 1 PKG PO Daily August 25, 2024 12:10pm Start: 05-11-2024 End: 08-25-2024 zbdpot30-qfjy fum-folic ac-o m3 (One Daily ) Discontinued PO May 10, 2024 11:00pm August 25, 2024 12:11pm Start: 05-11-2024 vnyhrr19-pftz fum-folic ac-om3 (One Daily ) Active PO May 10, 2024 11:00pm Start: 05-11-2024 wqmovi80-ynjo fum-folic ac-om3 (One Daily ) Active PO May 11, 2024 12:00am MV-Min-Fe Fum-FA-DHA ( 1 PO) (20 sources) MV-Min- Fe Fum-FA-DHA ( 1 PO) Take 1 each by mouth Daily Active yw868-zptb-uozsm acid ( 19) 29 mg iron- 1 mg tablet,chewable (2 sources) ug043-liak-ifunw acid ( 19) 29 mg iron- 1 [...] source) Vitamin B12 cyanocobalamin/f olic acid (VITAMIN I08-DVNPC ACID) 1,000-400 mcg lozg Take by mouth [...] Active Start: 06-23-2023 take 1 tablet by delphnie once daily before breakfast Phentermine HCl 37.5 MG 1 tablet before breakfast Orally Once a day for 30 days Jun, Active Start: 05-26-2023 take [address] [facility] every twenty-four hours Phentermine HCl [...] unspecified trimester] 2024 Episodic Other complications of (18 sources) Vomiting of , unspecified; Translations: [Unspecified [...] of ] 2024 Episodic Residual codes; unclassified (18 sources) Gestation period, 22 weeks; Translations: [22 [...] of uterine scar from previous surgery] Onset: Episodic Residual codes; unclassified (2 sources) Gestation [...] unspecified] Onset: 2 Resolved: 2 Chronic Unclassified (16 sources) OB Reminders Onset: 4 06-28-2024 Unclassified (1 source) Tiffani's Thyroiditis Onset: 4 Unclassified (6 sources) Onset: 9 Resolved: 1 09-05-2024 Urinary tract infections (1 source) Urinary tract infectious disease; Translations: [Urinary tract infection, site not specified] Onset: Episodic Past or Other Problems Problem Classification [...] Range Facility OB BPP W NON-STRESS on 09-29-2024 [place] [address] Ultrasound Report Signed Patient: TAWNYA HERRING MR#: [id number] : 1995 Acct:[id number] Age/Sex: 29 / F ADM Date: 09/28/24 Loc: US Attending Dr: Brain Way D.O. Ordering Physician: Brain Way D.O. Date of Service: 09/28/24 Procedure(s): US OB BPP w non-stress Accession Number(s): [id number] cc: Darwin Jones CAP SIZER; Brain Way D.O. [address] [address] Patient Name: TAWNYA HERRING MRN: [facility]:[id number] date: 1995 Sex: F Assigned Patient Location: [facility] Current Patient Location: Accession/Order Number: [id number] Exam Date: 09/28/2024 19:56 Report Date: 09/29/2024 07:32 At the request of: BRAIN WAY Procedure: US OB BPP w non-stress EXAMINATION: US OB BPP w non-stress HISTORY:EXCESSIVE GROWTH AFFECTING O36.63X1 COMPARISON: Ultrasound OB biophysical 09/22/2024 TECHNIQUE: Ultrasound biophysical profile was performed in the radiology department. BREATHING MOVEMENTS: 2 GROSS BODY MOVEMENTS: 2 TONE: 2 QUALITATIVE AMNIOTIC FLUID VOLUME: 2 PRESENTATION: CEPHALIC HEART RATE: 136.36 bpm AMNIOTIC FLUID VOLUME: 23.78 cm GESTATIONAL AGE: 34 weeks 1 day US/US OB BPP w non-stress IMPRESSION: 1. Total biophysical profile score: 8 Electronically authenticated by: IRENE HARRINGTON Date: 09/29/2024 07:32 Dictated By: Irene Harrington M.D. Signed By: 09/29/24 0734 DD/ 0732 TD/TT: Home Teaching Grades 7 And 8 Teacher: [facility] Radiology, Radiologi MD diane - 09/29/2024 [place] [address] Ultrasound Report Signed Patient: TAWNYA HERRING MR#: [id number] : 1995 Acct:[id number] Age/Sex: 29 / F ADM Date: 09/28/24 Loc: US Attending Dr: Brain Way D.O. Ordering Physician: Brain Way D.O. Date of Service: 09/28/24 Procedure(s): US OB BPP w non-stress Accession Number(s): [id number] cc: Darwin Jones CAP SIZER; Brain Way D.O. The [place] [id number] Patient Name: TAWNYA HERRING MRN: [facility]:[id number] date: 1995 Sex: F Assigned Patient Location: [facility] Current Patient Location: Accession/Order Number: [id number] Exam Date: 09/28/2024 19:56 Report Date: 09/29/2024 07:32 At the request of: BRAIN WAY Procedure: US OB BPP w non-stress EXAMINATION: US OB BPP w non-stress HISTORY:EXCESSIVE GROWTH AFFECTING O36.63X1 COMPARISON: Ultrasound OB biophysical 09/22/2024 TECHNIQUE: Ultrasound biophysical profile was performed in the radiology department. BREATHING MOVEMENTS: 2 GROSS BODY MOVEMENTS: 2 TONE: 2 QUALITATIVE AMNIOTIC FLUID VOLUME: 2 PRESENTATION: CEPHALIC HEART RATE: 136.36 bpm AMNIOTIC FLUID VOLUME: 23.78 cm GESTATIONAL AGE: 34 weeks 1 day US/US OB BPP w non-stress IMPRESSION: 1. Total biophysical profile score: 8 Electronically authenticated by: IRENE HARRINGTON Date: 09/29/2024 07:32 Dictated By: Irene Harrington M.D. Signed By: 09/29/2434 DD/ TD/TT: Home Teaching Grades 7 And 8 Teacher: [facility] Radiology Study observation (narrative) [facility] US OB BPP W NON-STRESS Ordered By: Radiologist Radiology on 09-29-2024 [facility] Aunt Bertha Work Phone: US OB BPP W NON-STRESS on 09-22-2024 [place] [address] Ultrasound Report Signed Patient: TAWNYA HERRING MR#: [id number] : 1995 Acct:[id number] Age/Sex: 29 / F ADM Date: 09/22/24 Loc: [facility] 252-[address]: Brain Way D.O. Ordering Physician: Brain Way D.O. Date of Service: 09/22/24 Procedure(s): US OB BPP w non-stress Accession Number(s): [id number] cc: Darwin Jones CAP SIZER; Brain Way D.O. The [address] [address] Patient Name: TAWNYA HERRING MRN: [facility]:[id number] date: 1995 Sex: F Assigned Patient Location: [facility] Current Patient Location: [facility] Accession/Order Number: [id number] Exam Date: 09/22/2024 11:07 Report Date: 09/22/2024 [...] Signed By: 09/22/24 1138 DD/ 1135 TD/TT: Home Teaching Grades 7 And 8 Teacher: [facility] Radiology, Radiologonel contreras MD - 09/22/2024 [place] [address] Ultrasound Report Signed Patient: TAWNYA HERRING MR#: [id number] : 1995 Acct:[id number] Age/Sex: 29 / F ADM Date: 09/22/24 Loc: [facility] 252-[address]: Brain Way D.O. Ordering Physician: Brain Way D.O. Date of Service: 09/22/24 Procedure(s): US OB BPP w non-stress Accession Number(s): [id number] cc: Darwin Jones CAP SIZER; Brain Way D.O. The [place] [id number] Patient Name: TAWNYA HERRING MRN: [facility]:[id number] date: 1995 Sex: F Assigned Patient Location: [facility] Current Patient Location: [facility] Accession/Order Number: [id number] Exam Date: 09/22/2024 11:07 Report Date: 09/22/2024 [...] Signed By: 09/22/24 1138 DD/ 1135 TD/TT: Home Teaching Grades 7 And 8 Teacher: [facility] Radiology Study observation (narrative) [facility] US OB BPP W NON-STRESS Ordered By: Radiologist Radiology on 09-22-2024 [facility] Work Phone: Thyroid Stimulating Hormoneo n 09-21-2024 TSH Qn 2.52 m[IU]/L Normal 0.45-5.33 [facility] Comment on above: Result Comment: PERF ORMED BY: [place] [address] PATHOLOGIST [place] [facility] MIS SCHMIDT M.D. Performed By: #### T SH3 #### [address] Thyrotropin [Units/volume] i n Serum or PlasmaOrdered By: Brain Way on 09-21-2024 TSH Qn Thyrotropin [Units/v olume] in Serum or Plasma 0.45-5.33 [facility] Urinalysis macro (dipstick) panel (U)on 09-19-2024 Bilirubin, UA Positive Negative - 4(70) +++ mg/dL [facility] Comment on above: small Blood, UA Negative Negative - 50 Dain/mcL [facility] Clarity, UA Clear [facility] Color, UA Wendy [facility] Glucose, UA Negative Negative - 2000(110) ++++ mg/dL [facility] Interpretation and review of laboratory results Abnormal [facility] Ketones, UA Positive Negative - 160(16) ++++ mg/dL [facility] Comment on above: trace Leukocytes, UA Negative Negative - 500+++ Chaparrita/mcL [facility] Nitrite, UA Negative Negative - Positive [facility] pH, UA 6 5 - 9 [facility] Protein, UA Positive Negative - 2000(20) ++++ mg/dL [facility] Comment on above: 30 Spec Grav, UA 1.025 1 - 1.03 [facility] Urobilinogen, UA 1.0 0.2 - 12 mg/dL [facility] US OB BPP W NON-STRESS on 09-15-2024 [place] [address] Ultrasound Report Signed Patient: TAWNYA HERRING MR#: [id number] : 1995 Acct:[id number] Age/Sex: 29 / F ADM Date: 09/14/24 Loc: [facility] 254-[address]: Brain Way D.O. Ordering Physician: Brain Way D.O. Date of Service: 09/14/24 Procedure(s): US OB BPP w non-stress Accession Number(s): [id number] cc: Darwin Jones CAP SIZER; Brain Way D.O. The [address] [address] Patient Name: TAWNYA HERRING MRN: [id number] date: 1995 Sex: F Assigned Patient Location: Current Patient Location: Accession/Order Number: [id number] Exam Date: 09/14/2024 19:57 Report Date: 09/15/2024 06:15 At the request of: BRAIN SEAMUS Procedure: US OB BPP w non-stress EXAMINATION: [...] M.D. Signed By: 09/15/24616 DD/ 4 TD/TT: Home Teaching Grades 7 And 8 Teacher: [facility] Radiology, Radiologi MD diane - 09/15/2024 [place] [address] Ultrasound Report Signed Patient: TAWNYA HERRING MR#: [id number] : 1995 Acct:[id number] Age/Sex: 29 / F ADM Date: 09/14/24 Loc: [facility] 254-[address]: Brain Way D.O. Ordering Physician: Brain Way D.O. Date of Service: 09/14/24 Procedure(s): US OB BPP w non-stress Accession Number(s): [id number] cc: Darwin Jones CAP SIZER; Brain Way D.O. The [address] [address] Patient Name: TAWNYA HERRING MRN: [facility]:[id number] date: 1995 Sex: F Assigned Patient Location: US Current Patient Location: Accession/Order Number: [id number] Exam Date: 09/14/2024 19:57 Report Date: 09/15/2024 [...] M.D. Signed By: 09/15/24616 DD/ 4 TD/TT: Home Teaching Grades 7 And 8 Teacher: [facility] Radiology Study observation (narrative) [facility] OB BPP W NON-STRESS Ordered By: Radiologist Radiology on 09-15-2024 [facility] Work Phone: [facility] echo transthoracicon [facility] echo transthoracic [facility] [address] Echocardiogram Signed Patient: Tawnya Shay MR#: [id number] : 1995 Acct:[id number] Age/Sex: 29 / F ADM Date: 09/14/24 Loc: Room: Type: [facility] Attending Dr: Mary Ellen Bruce MD Ordering Provider: Mary Ellen Bruce MD Date of Service: 09/14/24 [facility] echo transthoracic: I51.7 - Cardiomegaly Copies to: [...] Mary Ellen Bruce MD 09/14/24 1116 Normal [facility] US OB GROWTHon 09-11-[address] [address] Ultrasound Report Signed Patient: TAWNYA HERRING MR#: [id number] : 1995 Acct:[id number] Age/Sex: 29 / F ADM Date: 09/11/24 Loc: US Attending Dr: Mya Finch Ordering Physician: Mya Finch Date of Service: 09/11/24 Procedure(s): US OB growth Accession Number(s): [id number] cc: Mya Finch; Darwin Jones [address] [address] Patient Name: TAWNYA HERRING MRN: [facility]:[id number] date: 1995 Sex: F Assigned Patient Location: Current Patient Location: US Accession/Order Number: [id number] Exam Date: 09/11/2024 10:00 Report Date: 09/11/2024 [...] Signed By: 09/11/24 1111 DD/ 1108 TD/TT: Home Teaching Grades 7 And 8 Teacher: [facility] Radiology, Radiologi MD diane - 09/11/2024 [place] [address] Ultrasound Report Signed Patient: TAWNYA HERRING MR#: [id number] : 1995 Acct:[id number] Age/Sex: 29 / F ADM Date: 09/11/24 Loc: US Attending Dr: Mya Finch Ordering Physician: Mya Finch Date of Service: 09/11/24 Procedure(s): US OB growth Accession Number(s): [id number] cc: Mya Finch; Darwin Jones NP The [address] [address] Patient Name: TAWNYA HERRING MRN: [facility]:[id number] date: 1995 Sex: F Assigned Patient Location: Current Patient Location: US Accession/Order Number: [id number] Exam Date: 09/11/2024 10:00 Report Date: 09/11/2024 [...] Signed By: 09/11/24 1111 DD/ 1108 TD/TT: Home Teaching Grades 7 And 8 Teacher: [facility] Radiology Study observation (narrative) [facility] OB GROWTHOrdered By: Halima ologist Radiology on 09-11-2024 [facility] Work Phone: C Urineon 09-07-2024 Bacteria identified [...] Locations R1: This test was performed at: [facility], [address] [place] [address], [address]- , [place], [facility] Comment on above: Performed By: #### 2 [id number] #### [facility] [address] [place] [id number] Urinalysis macro (dipstick) panel (U)on 09-07-2024 Bilirubin, UA Negative Negative - 4(70) +++ mg/dL [facility] Blood, UA Negative Negative - 50 Dain/mcL [facility] Clarity, UA Clear [facility] Color, UA Yellow [facility] Glucose, UA Negative Negative - 1999(110) ++++ mg/dL [facility] Interpretation and review of laboratory results Normal [facility] Ketones, UA Negative Negative - 160(16) ++++ mg/dL [facility] Leukocytes, UA Negative Negative - 500+++ Chaparrita/mcL [facility] Nitrite, UA Negative Negative - Positive [facility] pH, UA 8 5 - 9 [facility] Protein, UA Negative Negative - 1999(20) ++++ mg/dL [facility] Spec Grav, UA 1.015 1 - 1.03 [facility] Urobilinogen, UA 1.0 0.2 - 12 mg/dL [facility] ED Clinical Summaryon 2024 ED Clinical Summary ED Clinical Summary [place] [id number] ED Clinical Summary Person Information Name: TAWNYA HERRING [facility] Age: 29 Years : 1995 Sex: Female Language: [place] Island[place] PCP: DARWIN JONES CNP Marital Status: Single Phone: [phone] Visit Id: Visit Reason: Headache; HEADACHE, FALL [...] 09/06/2024 16:26:55 09/06/2024 16:26:55 09/06/2024 16:26:55 ADDRESS: [address] [place] [phone] [facility] DOC NOTES: MEDICAL INFORMATION: Prescriptions Given: [...] day. PATIENT EDUCATION INFORMATION: Instructions: Concussion, Adult, Blns-dh-Xwgx Follow up: With: Address: When: DARWIN [address] [place] [phone] Business (1) In 3 days 09/09/2024 Comments: Call to schedule a follow-up appointment with your primary care provider. Use Zofran as needed for nausea/vomiting. Return to the ED with any new or worsening symptoms. DIAGNOSIS: JEFFERSON (headache) Normal [facility] ED Note-Physicianon 09-06-19 ED Note-Physician ED [...] headache. She denies the use of any egjs-ixm-xynuouy medications for this. Patient denies any neck [...] [] Head CT not ordered by emergency rn coronary care unit [] Head CT ordered for reasons other than trauma [] Patient is 18 or older, presenting with minor blunt head trauma. Head CT (including cosigned orders) was ordered by an emergency rn coronary care unit for trauma because (select one or more):[SATISFIES MIPS PERFORMANCE]Reasons: [] Patient is 65 or older [] Patient GCS < 15 [] Patient has focal neurologic deficit [] Patient has severe headache [] Patient is vomiting [] Severe/dangerous mechanism of injury was identified(select one or more): []MVA with: patient ejection, of another passenger, rollover, speed > 40mph, airbag deployment, commercial collections driver or passenger on ATV or motorcycle [...] cosigned orders) was ordered by an emergency rn coronary care unit for trauma, no indication specified.[DOES NOT SATISFY MIPS PERFORMANCE] Medical Decision Making Patient is a 29-year-old female with a history of anxiety who presents to the ED 30 weeks with complaints of a headache following a syncope episode from a seated position yesterday. Patient is hemodynamically st (more content not included)... Normal [facility] Comment on above: Result Comment: Elec tronically Signed By: Lashon Tee PA-C\.br\Date and Time Signed: 09/06/24 16:20 EST\.br\Electronically Co-Signed By: Lashon Tee PA-C\.br\Date and Time Co-Signed: 09/06/24 16:21 EST\.br\Electronically Co-Signed By: Flash Franco DO\.br\Date and Time Co-Signed: 09/06/24 19:47 EST ED Patient Summaryon 025 ED Patient Summary ED Patient Summary [place] [address] Patient Discharge Instructions Person Information Name: TAWNYA HERRING Age: 29 Years Arrival Date: 09/06/2024 13:57:18 Discharge Diagnosis: JEFFERSON (headache) Primary Care Physician: DARWIN JONES CNP Provider Information Primary Provider: Flash Franco DO Advanced Gl[employer] Kiln Placer:Lashon Tee PA-C The exam and treatment you received in the Emergency Department were for an urgent problem and are not intended as complete care. It is important that you follow up with a doctor, nurse practitioner, or physician???s nutrition services assistant for ongoing care. If your symptoms [...] Instructions: With: Address: When: DARWIN JONES [address] [place] [phone] MarkMonitor (1) In 3 days 09/09/2024 Comments: Call to schedule a follow-up appointment with your primary care provider. Use Zofran as needed for nausea/vomiting. Return to the ED with any new or worsening symptoms. In the event that this physician does not participate in your insurance network, please consult with your insurance company to find a nearby participating provider. Patient Education Materials: Concussion, Adult, Ixfm-cw-Zspx A MESSAGE TO ALL PATIENTS REGARDING OPIOIDS PRESCRIPTION OPIOIDS: WHAT YOU NEED TO KNOW Prescription opioids can be used to help relieve kbdzkaox-zx-vsokdw pain and are often prescribed following a [...] (www.fda.gov/Drugs/Resourc esForYou). (more content not included)... Normal [facility] BLOOD BANKOrdered By: Estefany Morillo on 09-05-2024 Fibronectin. Ql (Vag fld) Negative 1 (09/05/24 5:47 AM) Normal [facility] Comment on above: Interpretive Data: [...] [Moles/Vol] 16 mmol/L Normal 6-16 [facility] Comment on above: Performed By: #### 2 [id number] #### [facility] [address] [place] [place] [address] Calcium [Mass/Vol] 8.5 mg/dL Low 8.9-11.1 [facility] Comment on above: Performed By: #### 2 [id number] #### [facility] [address] [facility] [address] Chloride [Moles/Vol] 108 mmol/L Normal 101-111 [facility] Comment on above: Performed By: #### 2 [id number] #### [facility] [address] [facility] [address] CO2 [Moles/Vol] 17 mmol/L Low 21-31 [facility] Comment on above: Performed By: #### 2 [id number] #### [facility] [address] [facility] [address] Creatinine [Mass/Vol] 0.4 mg/dL Low 0.5-1.3 [facility] Comment on above: Performed By: #### 2 [id number] #### [facility] [address] [place] [address] Glucose [Mass/Vol] 103 mg/dL Normal 55-199 [facility] Comment on above: Performed By: #### 2 [id number] #### [facility] [address] [facility] [address] Potassium [Moles/Vol] 3.6 mmol/L Normal 3.5-5.3 [facility] Comment on above: Performed By: #### 2 [id number] #### [facility] [address] [facility] [address] Sodium [Moles/Vol] 137 mmol/L Normal 135-145 [facility] Comment on above: Performed By: #### 2 [id number] #### [facility] [address] [place] [address] Urea nitrogen [Mass/Vol] 9 mg/dL Normal 5-21 [facility] Comment on above: Performed By: #### 2 [id number] #### [facility] [address] [place] [address] Urea nitrogen/Creatinine [Mass ratio] 22 No Units High 10-20 [facility] Comment on above: Performed By: #### 2 [id number] #### [facility] [address] [place] [address] CBC w/ Auto Diffon 5 Basophils/100 WBC (Bld) 0.4 % Normal 0.0-2.0 [facility] Comment on above: Performed By: #### 2 [id number] #### [facility] [address] [place] [address] Basophils/Leukocytes Auto (Bld) [Pure # fraction] 0.1 E9/L Normal 0.0-0.2 [facility] Comment on above: Performed By: #### 2 [id number] #### [facility] [address] [place] [address] Eosinophils (Bld) [#/Vol] 0.0 E9/L Normal 0.0-0.5 [facility] Comment on above: Performed By: #### 2 [id number] #### [facility] [address] [place] [address] Eosinophils/100 WBC (Bld) 0.3 % Normal 0.0-8.0 [facility] Comment on above: Performed By: #### 2 [id number] #### [facility] [address] [place] [address] Erythrocyte distribution width (RBC) [Ratio] 12.7 % Normal 10.9-14.2 [facility] Comment on above: Performed By: #### 2 [id number] #### [facility] [address] [place] [address] Hematocrit (Bld) [Volume fraction] 37.4 % Normal 34.0-46.0 [facility] Comment on above: Performed By: #### 2 [id number] #### [facility] [address] [place] [address] Hemoglobin (Bld) [Mass/Vol] 13.2 g/dL Normal 12.0-16.0 [facility] Comment on above: Performed By: #### 2 [id number] #### [facility] [address] [place] [address] Lymphocytes (Bld) [#/Vol] 1.1 E9/L Normal 1.0-4.0 [facility] Comment on above: Performed By: #### 2 [id number] #### [facility] [address] [place] [address] Lymphocytes/100 WBC (Bld) 7.0 % Low 14.0-50.0 [facility] Comment on above: Performed By: #### 2 147189 #### [facility] [address] [place] [address] MCH (RBC) [Entitic mass] 33.0 pg Normal 27.0-34.0 [facility] Comment on above: Performed By: #### 2 [id number] #### [facility] [address] [place] [address] MCHC (RBC) [Mass/Vol] 35.4 g/dL Normal 31.4-36.0 [facility] Comment on above: Performed By: #### 2 [id number] #### [facility] [address] [place] [address] MCV (RBC) [Entitic vol] 93.3 fL Normal 80.0-100.0 [facility] Comment on above: Performed By: #### 2 [id number] #### [facility] [address] [place] [address] Monocytes (Bld) [#/Vol] 0.7 E9/L Normal 0.2-1.0 [facility] Comment on above: Performed By: #### 2 [id number] #### [facility] [address] [place] [address] Neutrophils (Bld) [#/Vol] 13.7 E9/L High 2.0-7.5 [facility] Comment on above: Performed By: #### 2 750269 #### [facility] [address] [place] [address] Neutrophils/100 WBC (Bld) 87.6 % High 36.0-75.0 [facility] Comment on above: Performed By: #### 2 397538 #### [facility] [address] [place] [address] Platelet 324.0 E9/L Normal 150.0-500. 0 [facility] Comment on above: Performed By: #### 2 [id number] #### [facility] [address] [place] [address] Platelet mean volume (Bld) [Entitic vol] 8.3 fL Normal 6.4-10.8 [facility] Comment on above: Performed By: #### 2 [id number] #### [facility] [address] [place] [address] RBC (Bld) [#/Vol] 4.0 E12/L Low 4.3-5.9 [facility] Comment on above: Performed By: #### 2 [id number] #### [facility] [address] [place] [address] WBC corrected for nucl RBC Auto (Bld) [#/Vol] 15.6 E9/L High 4.0-11.0 [facility] Comment on above: Performed By: #### 2 684349 #### [facility] [address] [place] [address] CHEMISTRYOrdered By: SYSTEM SYSTEM on 09-05-2024 Albumin [...] Sensitivity Troponin I Instructions For Use, Nathen Watkins, March 2018) Urea nitrogen [Mass/Vol] 9 mg/dL Normal 5 - 21 mg/dL [facility] Urea nitrogen/Creatinine [Mass ratio] 22 mg/mg High 10 - 20 [facility] ED Clinical Summaryon 2024 ED Clinical Summary ED Clinical Summary [place] [id number] ED Clinical Summary Person Information Name: TAWNYA HERRING [facility] Age: 29 Years : 1995 Sex: Female Language: [place] Island[place] PCP: DARWIN JONES CNP Marital Status: Single Phone: [phone] Visit Id: Visit Reason: Abdominal pain - ; Vomiting - ; Syncope/Near syncope; PASSED OUT HIT HEAD,NAUSEA DIARRHEA VOMITING 30 WKS PREG Speciality: Acuity: 2 Enc Type: Emergency Med Service: Emergency Arrival: 09/05/2024 03:02:46 Discharge: LOS: 000 01:33 Checkin: 09/05/2024 03:02:46 Checkout: 09/05/2024 04:35:45 Dispo Type: Admitted as IP to this [facility] EVENTS: Event Name Event Status Request [...] 09/05/2024 04:35:45 09/05/2024 04:35:45 09/05/2024 04:35:45 ADDRESS: [address] [place] [phone] PHYS DOC NOTES: MEDICAL INFORMATION: Prescriptions Given: Medications to Continue with No Changes Other Medications citalopram (CeleXA 20 mg Tab) 1 Tablets By Mouth every day. PATIENT EDUCATION INFORMATION: Instructions: Syncope, Adult, Tawa-tz-Xtvd; Nausea and Vomiting, Adult, Aefj-yq-Gxnt; Diarrhea, Adult, Arwt-yk-Kbmb; Dehydration, Adult, Xlhd-wz-Qwcw Follow up: With: Address: When: DARWIN JONES [address] [place] [phone] Business (1) In 3 days 09/08/2024 Comments: Please follow-up with Dr. Way for further evaluation management. Please return to the ED for any new or worsening symptoms. DIAGNOSIS: Dehydration; Diarrhea, unspecified; Nausea, vomiting, and diarrhea; Syncope Normal [facility] ED Note-Nursingon 09-05-2024 ED Note-Nursing ED Note-Nursing OB at bedside Normal [facility] ED Note-Physicianon 09-05-19 ED Note-Physician ED [...] and Complexity of Problems Differential Diagnosis: [] [facility] Data External documents reviewed: [] [...] Dayna 50 mL [F] 50 mL + [id number] [F] 25 mg, IV Piggyback Disposition Plan [...] Use, 03/12/2020 (more content not included)... Normal [facility] Comment on above: Result Comment: Elec tronically Signed By: Gabriel Curtis DO\.br\Date and Time Signed: 09/05/24 04:22 EST ED Patient Summaryon 025 ED Patient Summary ED Patient Summary [place] [id number] Patient Discharge Instructions Person Information Name: TAWNYA HERRING Age: 29 Years Arrival Date: 09/05/2024 03:02:46 Discharge Diagnosis: Dehydration; Diarrhea, unspecified; Nausea, vomiting, and diarrhea; Syncope Primary Care Physician: DARWIN JONES CNP Provider Information Primary Provider: Gabriel Curtis DO Advanced Gl[employer] Kiln Placer:None The exam and treatment you received in the Emergency Department were for an urgent problem and are not intended as complete care. It is important that you follow up with a doctor, nurse practitioner, or physician???s nutrition services assistant for ongoing care. If your symptoms [...] Instructions: With: Address: When: DARWIN JONES [address] [place] [phone] Business (1) In 3 days 09/08/2024 Comments: Please follow-up with Dr. Way for further evaluation management. Please return to the ED for any new or worsening symptoms. In the event that this physician does not participate in your insurance network, please consult with your insurance company to find a nearby participating provider. Patient Education Materials: Syncope, Adult, Ohwy-pw-Yotv; Nausea and Vomiting, Adult, Wjer-jv-Gjee; Diarrhea, Adult, Yabz-sg-Nqre; Dehydration, Adult, Pzli-ed-Lsve A MESSAGE TO ALL PATIENTS REGARDING OPIOIDS PRESCRIPTION OPIOIDS: WHAT YOU NEED TO KNOW Prescription opioids can be used to help relieve loeakwvj-gp-yzyvvp pain and are often prescribed following a [...] down t (more content not included)... Normal [facility] Extra Blueon 09-05-2024 Tube Collected Plasma Yes Invalid Interpretation Code [facility] Comment on above: Performed By: #### 1 [id number] #### [facility] [address] [place] [address] FFNon 09-05-2024 Fibronectin. Ql (Vag fld) Negative Normal [facility] Comment on above: Result Comment: In [...] the antibody-antigen reaction. Performed By: #### 1 [id number] #### [facility] [address] [place] [address] HEMATOLOGYOrdered By: SYSTEM SYSTEM on 09-05-2024 Basophils/100 [...] 09-05-2024 Albumin [Mass/Vol] 3.8 g/dL Normal 3.3-5.0 [facility] Comment on above: Performed By: #### 2 [id number] #### [facility] [address] [place] [address] Albumin/Globulin (S) [Mass conc ratio] 1.5 Normal 1.1-2.2 [facility] Comment on above: Performed By: #### 2 [id number] #### [facility] [address] [place] [address] ALP [Catalytic activity/Vol] 80 Int._Unit/L Normal 21-98 [facility] Comment on above: Performed By: #### 2 [id number] #### [facility] [address] [place] [address] ALT No additional P-5'-P [Catalytic activity/Vol] 20 Int._Unit/L Normal 6-46 [facility] Comment on above: Performed By: #### 2 [id number] #### [facility] [address] [place] [address] AST [Catalytic activity/Vol] 15 Int._Unit/L Normal 5-43 [facility] Comment on above: Performed By: #### 2 [id number] #### [facility] [address] [place] [address] Bilirubin [Mass/Vol] 0.6 mg/dL Normal 0.0-1.1 [facility] Comment on above: Performed By: #### 2 926046 #### [facility] [address] [place] [address] Bilirubin.direct [Mass/Vol] 0.1 mg/dL Normal 0.0-0.4 [facility] Comment on above: Performed By: #### 2 887851 #### [facility] [address] [place] [address] Bilirubin.indirect [Mass or moles/Vol] 0.5 mg/dL Normal 0.1-0.9 [facility] Comment on above: Performed By: #### 2 058375 #### [facility] [address] [place] [address] Globulin (S) [Mass/Vol] 2.6 g/dL Normal 1.4-4.0 [facility] Comment on above: Performed By: #### 2 521065 #### [facility] [address] [place] [address] Protein [Mass/Vol] 6.4 g/dL Normal 6.0-7.8 [facility] Comment on above: Performed By: #### 2 994936 #### [facility] [address] [place] [address] Influenza A&B Agon 5 Influenzae A Ag Negative Normal Negative [facility] Comment on above: Performed By: #### 1 [id number] #### [facility] [address] [place] [address] Influenzae B Ag Negative Normal Negative [facility] Comment on above: Result Comment: Test sensitivity and specificity vary for age group, specimen type, antigen types, and prevalence of disease. Test results must be evaluated in conjunction with other clinical data available to the physician. Individuals who received nasally administered Influenza A vaccine may have positive test results up to 3 days after vaccination. Performed By: #### 1 [id number] #### [facility] [address] [place] [address] Inpatient Clinical Summaryon 09-05-2024 Inpatient Clinical Summary Inpatient Clinical Summary [address] [address] Clinical Summary Person Information Name: TAWNYA HERRING [facility] Age: 29 Years : 1995 Sex: Female PCP: DARWIN JONES CNP Marital Status: Single Phone: [phone] Race: White Ethnicity: Non- or Language: [place]er Visit Id: Visit Reason: Abdominal pain - ; Vomiting - ; Syncope/Near syncope; PASSED OUT HIT HEAD,NAUSEA DIARRHEA VOMITING 30 WKS PREG Speciality: Acuity: Obs Enc Type: Observation Med Service: Obstetrics Arrival: 09/05/2024 03:02:46 Discharge: 09/05/2024 15:50:00 Dispo Type: Home (Routine DC) Address: [address] [place] [phone] Provider Notes: Diagnosis: Dehydration; Diarrhea, unspecified; Nausea, [...] range between ( 80.0 and 100.0 ) Rhea Auto: 4.7 % -- Normal range between ( 4.0 and 14.0 ) MPV: 8.3 fL -- Normal range between ( 6.4 and 10.8 ) Neutro Auto: 87.6 % -- Normal range between ( 36.0 and 75.0 ) Platelet: 324.0 E9/L -- Normal range between ( 150.0 and 500.0 ) WBC: 15.6 E9/L -- Normal range between ( 4.0 and 11.0 ) Rhea Absolute: 0.7 E9/L -- Normal range between [...] 38.19 kg/m2 (more content not included)... Normal [facility] Inpatient Patient Summaryon 09-05-2024 Inpatient Patient Summary Inpatient Patient Summary [address] [address] Patient Discharge Instructions PERSON INFORMATION Name: TAWNYA HERRING Date of : 1995 Current Date: 09/05/2024 16:15:55 PHYSICIANS Admitting Physician: Rogelio Nath MD Primary Care Physician: DARWIN JONES CNP PCP Phone Number: [phone] Comment: Discharge Diagnosis: Dehydration; Diarrhea, unspecified; Nausea, [...] Follow up: With: Address: When: [address] [facility], [address] [place] [address] MarkMonitor (1) In 2 days 09/07/2024 Comments: Call 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 Medicines ??? Take qsed-pdv-slmaxyz and prescription medicines only as told by [...] ? Flexing (more content not included)... Normal [facility] Lipase Levelon 09-05-2024 Lipase [Catalytic activity/Vol] 18 U/L Normal 13-58 [facility] Comment on above: Performed By: #### 2 [id number] #### [facility] [address] [place] [address] MICRO OTHER TESTSOrdered By: Barrington Maxwell on 09-05-2024 Influenzae A Ag Negative (09/05/24 3:34 AM) Normal Negative [facility] Influenzae B Ag Negative 3 (09/05/24 3:34 AM) Normal Negative [facility] Comment on above: Interpretive Data: [...] Troponin HS 2.70 pg/mL Low 10.10-27.1 0 [facility] Comment on above: Result Comment: The 95% CI (Confidence Interval) PPV (Positive Predictive Value) for myocardial infarction in females is 38 pg/mL, in males 51 pg/mL. The results should be used in conjunction with clinical conditions of myocardial infarction. (Access High Sensitivity Troponin I Instructions For Use, Nathen [employer], March 2018) Performed By: #### 1 [id number] #### [facility] [address] [place] [address] UA with Cult Rflxon 09-05-19 25 Bacteria Auto Ql (U) Trace Normal Trace [facility] Comment on above: Performed By: #### 4 [id number] #### [facility] [address] [place] [address] Bilirubin Ql (U) 1+ mg/dL Abnormal Negative [facility] Comment on above: Performed By: #### 4 [id number] #### [facility] [address] [place] [address] Clarity (U) Turbid Abnormal Clear [facility] Comment on above: Performed By: #### 4 [id number] #### [facility] [address] [place] [address] Color (U) Dark-Yellow Abnormal Yellow [facility] Comment on above: Result Comment: Micr oscopic readings are only performed on those samples that meet specific criteria set forth by [facility]. Performed By: #### 4 [id number] #### [facility] [address] [place] [address] Epithelial cells.squamous Auto (Urine sed) [#/Area] 5-8 Invalid Interpretation Code [facility] Comment on above: Performed By: #### 4 [id number] #### [facility] [address] [place] [address] Glucose Ql (U) Trace Abnormal Negative [facility] Comment on above: Performed By: #### 4 [id number] #### [facility] [address] [place] [address] Hemoglobin Auto test strip (U) [Mass/Vol] Negative Normal Negative [facility] Comment on above: Performed By: #### 4 [id number] #### [facility] [address] [place] [address] Ketones Auto test strip Ql (U) 1+ mg/dL Abnormal Negative [facility] Comment on above: Performed By: #### 4 [id number] #### [facility] [address] [place] [address] Leukocyte esterase Auto test strip Ql (U) 25 Chaparrita/uL Normal Negative [facility] Comment on above: Performed By: #### 4 [id number] #### [facility] [address] [place] [address] Mucus Auto Ql (U) 4+ [id number] Abnormal Negative F [facility] Comment on above: Performed By: #### 4 [id number] #### [facility] [address] [place] [address] Nitrite Auto test strip Ql (U) 1+ mg/dL Abnormal Negative [facility] Comment on above: Performed By: #### 4 [id number] #### [facility] [address] [place] [address] pH (U) 5.5 [pH] Invalid Interpretation Code 5.0-9.0 [facility] Comment on above: Performed By: #### 4 [id number] #### [facility] [address] [place] [address] Protein Ql (U) 1+ mg/dL Abnormal Negative [facility] Comment on above: Performed By: #### 4 [id number] #### [facility] [address] [place], [place] [address] RBC Ql (U) 0-3 Normal 0-3 [facility] Comment on above: Performed By: #### 4 [id number] #### [facility] [address] [place], [place] [address] Specific gravity (U) [Rel density] 1.029 Invalid Interpretation Code 1.005-1.03 0 [facility] Comment on above: Performed By: #### 4 [id number] #### [facility] [address] [place], [place] [address] Urobilinogen (U) [Mass/Vol] 2 mg/dL Abnormal Negative [facility] Comment on above: Performed By: #### 4 [id number] #### [facility] [address] [place], [place] [address] WBC Auto (Urine sed) [#/Area] 0-5 Normal 0-5 [facility] Comment on above: Performed By: #### 4 [id number] #### [facility] [address] [place], [place] [address] Type of Urine collection method Clean Catch Normal [facility] Comment on above: Performed By: #### 4 [id number] #### [facility] [address] [place] [address] URINALYSISOrdered By: SYSTEM SYSTEM on 09-05-2024 Bacteria [...] that meet specific criteria set forth by [facility]. Epithelial cells.squamous Auto (Urine sed) [...] 09-05-2024 eGFR 138 mL/min/1.73 m2 Normal >=59 [facility] Comment on above: Performed By: #### 1 [id number] #### [facility] [address] [place] [address] ALL CBC WITH AUTO DIFFon BASOPHILS ABSOLUTE AUTO 0 [facility] Basophils/100 WBC (Bld) 0.2 % 0.2 - 2.0 % [facility] Eosinophils/100 WBC (Bld) 0.8 % Low 0.9 - 7.0 % [facility] Erythrocyte distribution width (RBC) [Ratio] 12.1 % 11.0 - 15.0 % [facility] Hematocrit (Bld) [Volume fraction] 33.9 % Low 36.0 - 48.0 % [facility] Hemoglobin (Bld) [Mass/Vol] 11.6 g/dL Low 12.0 - 16.0 g/dL [facility] IMMATURE GRANULOCYTES ABS AUTO 0.03 [facility] Immature granulocytes/100 WBC (Bld) 0.3 % 0.0 - 0.5 % [facility] Interpretation and review of laboratory results Abnormal [facility] LYMPHOCYTES ABSOLUTE AUTO 1.8 [facility] Lymphocytes/100 WBC (Bld) 19.8 % Low 20.5 - 60.0 % [facility] MCH (RBC) [Entitic mass] 32.9 pg 26.7 - 34.0 pg [facility] MCHC (RBC) [Mass/Vol] 34.2 g/dL 29.9 - 35.2 g/dL [facility] MCV (RBC) [Entitic vol] 96 fL 81.0 - 99.0 fL [facility] MONOCYTES ABSOLUTE AUTO 0.5 [facility] Monocytes/100 WBC (Bld) 5.4 % 1.7 - 12.0 % [facility] NEUTROPHILS ABSOLUTE AUTO 6.6 High [facility] Neutrophils/100 WBC (Bld) 73.5 % 43.0 - 75.0 % [facility] Platelet mean volume (Bld) [Entitic vol] 10.2 fL 9.5 - 13.5 fL [facility] TBH EO # 0.1 [facility] TBH PLT 287 [facility] TB RBC 3.53 Low [facility] TB WBC 9 [facility] [facility] Basophils Auto (Bld) [#/Vol] on 08-25-2024 Basophils (Bld) [#/Vol] Automated basophil count 0.0-0.1 [facility] Basophils/100 WBC Auto (Bld) on 08-25-2024 Basophils/100 WBC (Bld) Automated basophil % 0.2-2.0 [facility] Eosinophils/100 WBC Auto (Bl d)on 08-25-2024 Eosinophils/100 WBC (Bld) Automated eosinophil % Low 0.9-7.0 [facility] Erythrocyte distribution wid th Auto (RBC) [Ratio]on 08-25-2024 Erythrocyte distribution width (RBC) [Ratio] Erythrocyte distribution width [Ratio] by Automated count 11.0-15.0 [facility] FPG ECG *CARDIOLOGY ONLY*on 08-25-2024 FPG ECG *CARDIOLOGY ONLY* [facility] [place] [address] Electrocardiograph Report Signed Patient: Tawnya Herring MR#: [id number] 29 : 1995 Acct:[id number] Age/Sex: 29 / F ADM Date: 08/25/24 Loc: [facility] Room: Type: [facility] Attending Dr: Mary Ellen Bruce MD Ordering [...] Normal ECG Confirmed by Mary Ellen Bruce ([id number]) on 08/25/2024 1:42:57 PM Referred By: Electronically Signed By: Mary Ellen Bruce Transcribed By: MUS Signed By Mary Ellen Bruce MD 5 1342 Normal [facility] Hematocrit Auto (Bld) [Volum e fraction]on 08-25-2024 Hematocrit (Bld) [Volume fraction] Hematocrit [Volume Fraction] of Blood by Automated count Low 36.0-48.0 [facility] Hemoglobin [Mass/volume] in Bloodon 08-25-2024 Hemoglobin (Bld) [Mass/Vol] Hemoglobin [Mass/volume] in Blood Low 12.0-16.0 [facility] Laboratory - Chemistry and C hemistry - challengeon 08-25-2024 Glucose [Mass/Vol] 131 mg/dL High <130 [facility] Laboratory - Hematology and Cell countson 08-25-2024 Immature granulocytes/100 WBC (Bld) 0.3 % 0.0-0.5 [facility] Leukocytes [#/volume] correc hamilton for nucleated erythrocytes in Blood by Automated counon 08-25-2024 WBC corrected for nucl RBC Auto (Bld) [#/Vol] Leukocytes [#/volume] corrected for nucleated erythrocytes in Blood by Automated coun 4.0-11.0 [facility] Lymphocytes Auto (Bld) [#/Vo l]on 08-25-2024 Lymphocytes (Bld) [#/Vol] Lymphocytes [#/volume] in Blood by Automated count 1.2-3.8 [facility] Lymphocytes/100 WBC Auto (Bl d)on 08-25-2024 Lymphocytes/100 WBC (Bld) Lymphocytes/100 leukocytes in Blood by Automated count Low 20.5-60.0 [facility] MCH Auto (RBC) [Entitic mass ]on 08-25-2024 MCH (RBC) [Entitic mass] MCH [Entitic mass] by Automated count 26.7-34.0 [facility] MCHC Auto (RBC) [Mass/Vol]on 08-25-2024 MCHC (RBC) [Mass/Vol] MCHC [Mass/volume] by Automated count 29.9-35.2 [facility] MCV Auto (RBC) [Entitic vol] on 08-25-2024 MCV (RBC) [Entitic vol] MCV [Entitic volume] by Automated count 81.0-99.0 [facility] Monocytes Auto (Bld) [#/Vol] on 08-25-2024 Monocytes (Bld) [#/Vol] Automated blood monocyte count 0.3-0.8 [facility] Monocytes/100 WBC Auto (Bld) on 08-25-2024 Monocytes/100 WBC (Bld) Automated monocyte % 1.7-12.0 [facility] Neutrophils Auto (Bld) [#/Vo l]on 08-25-2024 Neutrophils (Bld) [#/Vol] Neutrophils [#/volume] in Blood by Automated count High 1.4-6.5 [facility] Neutrophils/100 WBC Auto (Bl d)on 08-25-2024 Neutrophils/100 WBC (Bld) Automated neutrophil % 43.0-75.0 [facility] No Panel Informationon 08-25 Eosinophils # (Auto) 0.1 10 3/uL 0.0-0.7 [facility] Immature Granulocyte # (Auto) 0.03 10 3/uL 0.00-0.03 [facility] Platelet mean volume Auto (B ld) [Entitic vol]on 08-25-2024 Platelet mean volume (Bld) [Entitic vol] Platelet mean volume [Entitic volume] in Blood by Automated count 9.5-13.5 [facility] Platelets Auto (Bld) [#/Vol] on 08-25-2024 Platelets (Bld) [#/Vol] Platelets [#/volume] in Blood by Automated count 150-450 [facility] RBC Auto (Bld) [#/Vol]on RBC (Bld) [#/Vol] Erythrocytes [#/volu me] in Blood by Automated count Low 4.20-5.40 [facility] Urinalysis macro (dipstick) panel (U)on 08-23-2024 Bilirubin, UA Negative Negative - 4(70) +++ mg/dL [facility] Blood, UA Negative Negative - 50 Dain/mcL [facility] Clarity, UA Clear [facility] Color, UA Yellow [facility] Glucose, UA Negative Negative - 1999(110) ++++ mg/dL [facility] Interpretation and review of laboratory results Abnormal [facility] Ketones, UA Negative Negative - 160(16) ++++ mg/dL [facility] Leukocytes, UA Positive Negative - 500+++ Chaparrita/mcL [facility] Comment on above: small Nitrite, UA Negative Negative - Positive [facility] pH, UA 7 5 - 9 [facility] Protein, UA Negative Negative - 1999(20) ++++ mg/dL [facility] Spec Grav, UA 1.02 1 - 1.03 [facility] Urobilinogen, UA 0.2 0.2 - 12 mg/dL [facility] Thyroid Stimulating Hormoneo n 07-31-2024 TSH Qn 2.07 m[IU]/L Normal 0.45-5.33 [facility] Comment on above: Result Comment: PERF ORMED BY: [place] [address] PATHOLOGIST [employer] MIS SCHMIDT M.D. Performed By: #### T SH3 #### [address] Thyrotropin [Units/volume] i n Serum or PlasmaOrdered By: Brain Way on 07-31-2024 TSH Qn Thyrotropin [Units/v olume] in Serum or Plasma 0.45-5.33 [facility] Urinalysis macro (dipstick) panel (U)on 07-11-2024 Bilirubin, UA Negative Negative - 4(70) +++ mg/dL [facility] Blood, UA Negative Negative - 50 Dain/mcL [facility] Clarity, UA Clear [facility] Color, UA Yellow [facility] Glucose, UA Negative Negative - 1999(110) ++++ mg/dL [facility] Interpretation and review of laboratory results Abnormal [facility] Ketones, UA Negative Negative - 160(16) ++++ mg/dL [facility] Leukocytes, UA Trace Negative - 500+++ Chaparrita/mcL [facility] Nitrite, UA Negative Negative - Positive [facility] pH, UA 6 5 - 9 [facility] Protein, UA Negative Negative - 1999(20) ++++ mg/dL [facility] Spec Grav, UA 1.01 1 - 1.03 [facility] Urobilinogen, UA 0.2 0.2 - 12 mg/dL [facility] Alpha-fetoprotein (AFP) luis urement (yztwiwiq-xo-owdfmv)Ordered By: Brain Way on 06-28-2024 AFP [MoM] Alpha-fetoprotein (A FP) measurement (hcytwdmf-op-rtjftf) . [facility] Determination of gestational ageOrdered By: Brain Way on 06-28-2024 Gestational age Assess gestational age . [facility] Estimation of maternal age-s pecific risk of Down syndrome birthOrdered By: Brain Way on 06-28-2024 Age [Time] Estimation of matern al age-specific risk of Down syndrome . [facility] Human chorionic gonadotropin (hCG) multiple of median measurementOrdered By: Brain Way on 06-28-2024 HCG [MoM] Human chorionic gonadotropin (hCG) multiple of median measurement . [facility] Insulin dependent diabetes m ellitus detectionOrdered By: Brain Way on 06-28-2024 Insulin dependent diabetes mellitus Ql Insulin dependent diabetes mellitus detection . [facility] Interpretation of serum or p lasma second trimester quad maternal screen (narrative reOrdered By: Brain Way on 06-28-2024 Second trimester quad maternal screen Mathew [Interp] Interpretation of serum or plasma second trimester quad maternal screen (narrative re . [facility] Comment on above: Interpretation:An in terpretation CANNOT be provided for this patientbecause necessary patient information was not provided (oneor more of: gestational age, weight, or patient age).Please call us with new clinical information.Recalculations are not recommended when gestational datingby LMP and ultrasound are within 10 days. No Panel InformationOrdered By: Brain Way on 06-28-2024 AFP Triple Screen Comment Comment . [facility] Comment on above: Stephanie Pinto , Ph.D., DABCCDirectorReferences: Available Upon Request.Multiples Of Median Cutoffs Abbreviation Definitions For AFP Elevations IDD- Insulin Dep DiabetesSingleton 2.5 Black 2.8 OSBR- Open Spina BifidaIDD 2.0 Twins 4.5 RiskDSR Cutoff 1:270 DSR- Down Syndrome RiskT18 Cutoff 1:100 T18- Trisomy 18For further inquiries contact [facility] Servicesat [phone].This test was developed and its performance characteristicsdetermined by [employer]. It has not been cleared or approvedby the Food and Drug Administration.Performed at: [facility] [place] [employer] [id number] [place], [place] [id number] Director: Aubrey Moreno [facility], Phone: [phone] Alpha Fetoprotein Results Received Report . [facility] Down Syndrome Age Equivalent See interpretation. . [facility] Gestational Age Calculation Method Ultrasound . [facility] Comment on above: 18:5 on 06/12/2024 Maternal Quad Test Risk See interpretation. . [facility] Maternal Race . [facility] Multiple No . [facility] Serum or plasma avcmp-8-sitd protein measurement (mass/volume)Ordered By: Brain Way on 06-28-2024 AFP [Mass/Vol] Serum or plasma jexwg-5-ftvqeiuihoc measurement (mass/volume) . [facility] Serum or plasma inhibin A me asurement (adjusted rzbxkyfg-zr-hqhwbu)Ordered By: Brain Way on 06-28-2024 Inhibin A adjusted [MoM] Serum or plasma inhibin A measurement (adjusted qrlrodbu-yq-wtedfe) . [facility] Serum or plasma inhibin A me asurement (mass/volume)Ordered By: Brain Way on 06-28-2024 Inhibin A [Mass/Vol] Inhibin A [Mass/vol ume] in Serum or Plasma . [facility] Serum or plasma total combin ed intact choriogonadotropin and beta subunit measurementOrdered By: Brain Way on 06-28-2024 HCG.intact+Beta subunit Qn Serum or plasma total combined intact choriogonadotropin and beta subunit measurement . [facility] Serum or plasma unconjugated estriol (E3) measurement (adjusted loirxzyu-kc-xpzxig)Ordered By: Brain Way on 06-28-2024 E3.unconjugated adjusted [MoM] Serum or plasma unconjugated estriol (E3) measurement (adjusted chsyychu-is-teizeu) . [facility] Serum or plasma unconjugated estriol (E3) measurement (mass/volume)Ordered By: Brain Way on 06-28-2024 E3.unconjugated [Mass/Vol] Serum or plasma unconjugated estriol (E3) measurement (mass/volume) . [facility] Thyroid Stimulating Hormoneo n 06-28-2024 TSH Qn 3.44 m[IU]/L Normal 0.45-5.33 [facility] Comment on above: Result Comment: PERF ORMED BY: [facility] [address] [place] [address] PATHOLOGIST [employer] JORDI SMITH M.D. Performed By: #### T SH3 #### [place] [id number] [facility] Thyrotropin [Units/volume] i n Serum or PlasmaOrdered By: Brain Way on 06-28-2024 TSH Qn Thyrotropin [Units/v olume] in Serum or Plasma 0.45-5.33 [facility] Trisomy 21 risk determinatio n in fetusOrdered By: Brain Way on 06-28-2024 Trisomy 21 risk Qn (fetus) Trisomy 21 risk determination in fetus . [facility] US OB >= 14 weeks Fetuson US OB >= 14 weeks Fetus [facility] Main [place] [address] [place] [address] Ultrasound Report Signed Patient: Tawnya Herring MR#: [id number] 29 : 1995 Acct:[id number] Age/Sex: 28 / F ADM Date: 06/22/24 Loc: Room: Type: [facility] Attending Dr: Brain Way DO Ordering Provider: [...] Norton Jr., D.O.06/22/2024 4:00 PM Dictation Location: [place] [address] Tech: Rae De Paz Transcribed By: AGUILAR 06/22/24 1600 Dictated By: Zay Norton Jr, DO 06/22/24 1552 Signed By: 06/22/24 1600 Normal [facility] Urinalysis macro (dipstick) panel (U)on 06-12-2024 Bilirubin, UA Negative Negative - 4(70) +++ mg/dL [facility] Blood, UA Negative Negative - 50 Dain/mcL [facility] Clarity, UA Clear [facility] Color, UA Yellow [facility] Glucose, UA Negative Negative - 1999(110) ++++ mg/dL [facility] Interpretation and review of laboratory results Abnormal [facility] Ketones, UA Negative Negative - 160(16) ++++ mg/dL [facility] Leukocytes, UA Positive Negative - 500+++ Chaparrita/mcL [facility] Comment on above: small Nitrite, UA Negative Negative - Positive [facility] pH, UA 6 5 - 9 [facility] Protein, UA Negative Negative - 2000(20) ++++ mg/dL [facility] Spec Grav, UA 1.025 1 - 1.03 [facility] Urobilinogen, UA 1.0 0.2 - 12 mg/dL [facility] Thyrotropin [Units/volume] i n Serum or PlasmaOrdered By: Brain Wya on 05-24-2024 TSH Qn 2.42 m[IU]/L Normal 0.45-5.33 [facility] Comment on above: Result Comment: PERF ORMED BY: [place] [address] PATHOLOGIST [employer] JORDI SMITH M.D. Performed By: #### T SH3 #### [address] TSH Qn Thyrotropin [Units/v olume] in Serum or Plasma 0.45-5.33 [facility] Urinalysis macro (dipstick) panel (U)on 05-10-2024 Bilirubin, UA Negative Negative - 4(70) +++ mg/dL [facility] Blood, UA Negative Negative - 50 Dain/mcL [facility] Clarity, UA Clear [facility] Color, UA Yellow [facility] Glucose, UA Negative Negative - 1999(110) ++++ mg/dL [facility] Interpretation and review of laboratory results Normal [facility] Ketones, UA Negative Negative - 160(16) ++++ mg/dL [facility] Leukocytes, UA Negative Negative - 500+++ Chaparrita/mcL [facility] Nitrite, UA Negative Negative - Positive [facility] pH, UA 6.5 5 - 9 [facility] Protein, UA Negative Negative - 1999(20) ++++ mg/dL [facility] Spec Grav, UA 1.020 1 - 1.03 [facility] Urobilinogen, UA 1.0 0.2 - 12 mg/dL [facility] IGP,APTIMA HPV,AGE GDLNon AGE GDLN ACOG TESTING Note . [facility] Comment on above: TESTS RESULT FLAG UN ITS REF RANGE LAB Clinician Provided Cytology Information Source.............Cervix No. of containers..01 ThinPrep Vial Age Algo ACOG Mariel... FLAG LEGEND: L-Low Normal,H-High Normal,LL-Alert Low,HH-Alert High <-Panic Low,>-Panic High,A-Abnormal,AA-Critical Abnormal Performed at: 01 =G [facility] [address] [place] [address] Christelle Galan MD, IGP, RFX APTIMA HPV ASCU Note . [facility] Comment on above: TESTS RESULT FLAG UN ITS REF RANGE LAB DIAGNOSIS: 02 NEGATIVE FOR INTRAEPITHELIAL LESION OR MALIGNANCY. Specimen adequacy: 02 Satisfactory for evaluation. Endocervical and/or squamous metaplastic cells (endocervical component) are present. Performed by: 02 Vanessa Ornelas, [employer] . 02 Note: Note 02 The Pap [...] High,A-Abnormal,AA-Critical Abnormal Performed at: 02 WB [facility] [address] [place], [place] [address] Christelle Galan MD, Performed at: =[facility] [id number] Fire Protection Designer: Christelle Galan MD, Phone: [phone] Performed at: [address] [id number] Fire Protection Designer: Christelle Galan MD, Phone: [phone] [facility] URETHRITIS/DISCHARGE PLUS VA GINITIS (HTRX)on 04-22-2024 ATOPOBIUM VAGINAE 0.000 [facility] ATOPOBIUM VAGINAE Not detected [facility] BVAB 2,3 (BACTERIAL VAGINOSIS ASSOCIATED BACTERIA 2, 3); MOBILUNCUS SPP 24.821 Abnormal [facility] BVAB 2,3 (BACTERIAL VAGINOSIS ASSOCIATED BACTERIA 2, 3); MOBILUNCUS SPP Detected Abnormal [facility] JANET ALBICANS, PARAPSILOSIS, TROPICALIS 0.000 [facility] JANET ALBICANS, PARAPSILOSIS, TROPICALIS Not detected [facility] JANET GLABRATA 0.000 [facility] JANET GLABRATA Not detected [facility] JANET KRUSEI 0.000 [facility] JANET KRUSEI Not detected [facility] CHLAMYDIA TRACHOMATIS 0.000 [facility] CHLAMYDIA TRACHOMATIS Not detected N O[facility] GARDNERELLA VAGINALIS 0.000 [facility] GARDNERELLA VAGINALIS Not detected N O[facility] Interpretation and review of laboratory results Abnormal [facility] MEGASPHAERA (TYPES 1, 2) 0.000 [facility] MEGASPHAERA (TYPES 1, 2) Not detected [facility] MYCOPLASMA GENITALIUM 0.[address] [facility] MYCOPLASMA GENITALIUM Not detected N [facility] NEISSERIA GONORRHOEAE 0.[address] [facility] NEISSERIA GONORRHOEAE Not detected N O[facility] TRICHOMONAS VAGINALIS 0.[address] [facility] TRICHOMONAS VAGINALIS Not detected N [facility] Urinalysis macro (dipstick) panel (U)on 04-20-2024 Bilirubin, UA Negative Negative - 4(70) +++ mg/dL [facility] Blood, UA Positive Negative - 50 Dain/mcL [facility] Comment on above: trace-intact Clarity, UA Clear [facility] Color, UA Yellow [facility] Glucose, UA Negative Negative - 1999(110) ++++ mg/dL [facility] Interpretation and review of laboratory results Abnormal [facility] Ketones, UA Negative Negative - 160(16) ++++ mg/dL [facility] Leukocytes, UA Trace Negative - 500+++ Chaparrita/mcL [facility] Nitrite, UA Negative Negative - Positive [facility] pH, UA 6.0 5 - 9 [facility] Protein, UA Negative Negative - 1999(20) ++++ mg/dL [facility] Spec Grav, UA 1.030 1 - 1.03 [facility] Urobilinogen, UA 0.2 0.2 - 12 mg/dL [facility] CBC without diffon Hematocrit (Bld) [Volume fraction] 37.3 % [facility] Hemoglobin (Bld) [Mass/Vol] 13.3 g/dL [facility] Rbc Mcv (Fl) By Automated Count 92.1 [facility] No Panel Informationon 04-13 [facility] Rubella IGG immune statuson 04-13-2024 Rubella immune IgG 1.33 [facility] Syphilis Total(Unknown Syphi lis Status)on 04-13-2024 Syphilis Non-Reactive [facility] TBH BOX TEST SENT OUTon 03-17 BOX TEST SENT OUT 04/13/24 [facility] Drug Screen, Urineon 024 Amphetamine/Methamphe tamine Negative [facility] Barbiturate Screen Urine Negative [facility] Benzodiazepine Screen, Urine Negative [facility] Cocaine Metabolite Negative [facility] Methadone,Meconium Negative [facility] Opiate Quantitative Urine Negative [facility] Oxycodone Negative [facility] Phencyclidine Negative [facility] Thc Marijuana, Urine Negative [facility] HCG ( test) Ql (U)o n 04-07-2024 Interpretation and review of laboratory results Abnormal [facility] Preg Test, Ur Positive [facility] Urinalysis macro (dipstick) panel (U)on 04-07-2024 Bilirubin, UA Negative Negative - 4(70) +++ mg/dL [facility] Blood, UA Negative Negative - 50 Dain/mcL [facility] Clarity, UA Clear [facility] Color, UA Yellow [facility] Glucose, UA Negative Negative - 1999(110) ++++ mg/dL [facility] Interpretation and review of laboratory results Abnormal [facility] Ketones, UA Negative Negative - 160(16) ++++ mg/dL [facility] Leukocytes, UA Positive Negative - 500+++ Chaparrita/mcL [facility] Comment on above: small Nitrite, UA Negative Negative - Positive [facility] pH, UA 7.0 5 - 9 [facility] Protein, UA Negative Negative - 1999(20) ++++ mg/dL [facility] Spec Grav, UA 1.025 1 - 1.03 [facility] Urobilinogen, UA 0.2 0.2 - 12 mg/dL [facility] Automated basophil %Ordered By: Addi Ortega on 04-06-2024 Basophils/100 WBC (Bld) 0.2 % Normal . [facility] Comment on above: Performed By: #### P ILLAR TSH, PILLAR LIPID, PILLAR CBC, PILLAR BMP #### [address] Automated basophil countOrde red By: Addi Ortega on 04-06-2024 Basophils (Bld) [#/Vol] 0.0 10*3/uL Normal 0.0-0.2 [facility] Comment on above: Result Comment: PERF ORMED BY: [place] [address] PATHOLOGIST [employer] JORDI SMITH M.D. Performed By: #### P ILLAR TSH, PILLAR LIPID, PILLAR CBC, PILLAR BMP #### [address] Automated blood monocyte cou ntOrdered By: Addi Ortega on 04-06-2024 Monocytes (Bld) [#/Vol] 0.5 10*3/uL Normal 0.0-0.8 [facility] Comment on above: Performed By: #### P ILLAR TSH, PILLAR LIPID, PILLAR CBC, PILLAR BMP #### [address] Automated eosinophil %Ordere d By: Addi Ortega on 04-06-2024 Eosinophils/100 WBC (Bld) 0.5 % Normal . [facility] Comment on above: Performed By: #### P ILLAR TSH, PILLAR LIPID, PILLAR CBC, PILLAR BMP #### [facility] [address] Automated eosinophil countOr dered By: Addi Ortega on 04-06-2024 Eosinophils (Bld) [#/Vol] 0.0 10*3/uL Normal 0.0-0.45 [facility] Comment on above: Performed By: #### P ILLAR TSH, PILLAR LIPID, PILLAR CBC, PILLAR BMP #### [facility] [address] [place] [address] Automated monocyte %Ordered By: Addi Ortega on 04-06-2024 Monocytes/100 WBC (Bld) 5.6 % Normal . [facility] Comment on above: Performed By: #### P ILLAR TSH, PILLAR LIPID, PILLAR CBC, PILLAR BMP #### [facility] [address] Automated neutrophil %Ordere d By: Addi Ortega on 04-06-2024 Neutrophils/100 WBC (Bld) 64.9 % Normal . [facility] Comment on above: Performed By: #### P ILLAR TSH, PILLAR LIPID, PILLAR CBC, PILLAR BMP #### [facility] [address] [place] [address] Basophils Auto (Bld) [#/Vol] Ordered By: Addi Ortega on 04-06-2024 Basophils (Bld) [#/Vol] Automated basophil count 0.0-0.2 [facility] Basophils/100 WBC Auto (Bld) Ordered By: Addi Ortega on 04-06-2024 Basophils/100 WBC (Bld) Automated basophil % . [facility] Calcium [Mass/volume] in Ser um or PlasmaOrdered By: Addi Ortega on 04-06-2024 Calcium [Mass/Vol] 8.9 mg/dL Normal 8.6-10.3 [facility] Comment on above: Performed By: #### P ILLAR TSH, PILLAR LIPID, PILLAR CBC, PILLAR BMP #### [facility] [address] [place] [address] [place] Calcium [Mass/Vol] Calcium [Mass/volume ] in Serum or Plasma 8.6-10.3 [facility] Carbon dioxide, total [Moles /volume] in Serum or PlasmaOrdered By: Addi Ortega on 04-06-2024 CO2 [Moles/Vol] 22.0 mmol/L Normal 21.0-31.0 [facility] Comment on above: Performed By: #### P ILLAR TSH, PILLAR LIPID, PILLAR CBC, PILLAR BMP #### [facility] [address] [place] [address] [place] CO2 [Moles/Vol] Carbon dioxide, tota l [Moles/volume] in Serum or Plasma 21.0-31.0 [facility] Chloride [Moles/volume] in S ghada or PlasmaOrdered By: Addi Ortega on 04-06-2024 Chloride [Moles/Vol] 106 mmol/L Normal 98-107 [facility] Comment on above: Performed By: #### P ILLAR TSH, PILLAR LIPID, PILLAR CBC, PILLAR BMP #### [facility] [address] Chloride [Moles/Vol] Chloride [Moles/vol ume] in Serum or Plasma 98-107 [facility] Cholesterol [Mass/volume] in Serum or PlasmaOrdered By: Addi Ortega on 04-06-2024 Cholesterol [Mass/Vol] 159 mg/dL Normal 140-200 [facility] Comment on above: Chol less than 200 m g/dl low riskChol 201-239 mg/dl borderline riskChol 240 mg/dl and greater high risk Result Comment: Chol less than 200 mg/dl low risk Chol 201-239 mg/dl borderline risk Chol 240 mg/dl and greater high risk Performed By: #### P ILLAR TSH, PILLAR LIPID, PILLAR CBC, PILLAR BMP #### [facility] [address] [place] [id number] [place] Cholesterol [Mass/Vol] Cholesterol [Mass/volume] in Serum or Plasma 140-200 [facility] Comment on above: Chol less than 200 m g/dl low riskChol 201-239 mg/dl borderline riskChol 240 mg/dl and greater high risk Cholesterol in HDL [Mass/vol ume] in Serum or PlasmaOrdered By: Addi Ortega on 04-06-2024 Cholesterol in HDL [Mass/Vol] Serum or plasma high density lipoprotein (HDL) cholesterol measurement 23-92 [facility] Comment on above: HDL CHOL ATP-III CLA SSIFICATION Cardiovascular RiskHDL > or equal to 60 mg/dL LOWHDL < 40 mg/dL HIGH Cholesterol in LDL Calc [Mas s/Vol]Ordered By: Addi Ortega on 04-06-2024 Cholesterol in LDL [Mass/Vol] 95 mg/dL 0-100 [facility] Comment on above: LDL ATP III CLASSIFI CATIONLDL less than 100 mg/dL OptimalLDL 100-129 mg/dL Near or above optimalLDL 130-159 mg/dL Borderline highLDL 160-189 mg/dL HighLDL greater than 189 mg/dL Very high Cholesterol in LDL [Mass/Vol] Cholesterol in LDL [Mass/volume] in Serum or Plasma by calculation 0-100 [facility] Comment on above: LDL ATP III CLASSIFI CATIONLDL less than 100 mg/dL OptimalLDL 100-129 mg/dL Near or above optimalLDL 130-159 mg/dL Borderline highLDL 160-189 mg/dL HighLDL greater than 189 mg/dL Very high Cholesterol in VLDL Calc [Ma ss/Vol]Ordered By: Addi Ortega on 04-06-2024 Cholesterol in VLDL [Mass/Vol] 15 mg/dL [facility] Cholesterol in VLDL [Mass/Vol] Cholesterol in VLDL [Mass/volume] in Serum or Plasma by calculation [facility] Creatinine [Mass/volume] in Serum or PlasmaOrdered By: Addi Ortega on 04-06-2024 Creatinine [Mass/Vol] 0.44 mg/dL Low 0.60-1.20 [facility] Comment on above: Performed By: #### P ILLAR TSH, PILLAR LIPID, PILLAR CBC, PILLAR BMP #### [address] Creatinine [Mass/Vol] Creatinine [Mass/v olume] in Serum or Plasma Low 0.60-1.20 [facility] Employee Basic Metabolic Suero nargis 04-06-2024 GFR/1.73 sq M.predicted MDRD (S/P/Bld) [Vol rate/Area] mL/min/{1.73_m2} Normal [facility] Comment on above: Performed By: #### P ILLAR TSH, PILLAR LIPID, PILLAR CBC, PILLAR BMP #### [facility] [address] Employee Complete Blood Coun ton 04-06-2024 Mean Corpuscular HGB Conc 35.4 g/dL High 32.0-35.0 [facility] Comment on above: Performed By: #### P ILLAR TSH, PILLAR LIPID, PILLAR CBC, PILLAR BMP #### [facility] [address] NRBC% 0.0 /100{WBC} Normal 0-0.5 [facility] Comment on above: Performed By: #### P ILLAR TSH, PILLAR LIPID, PILLAR CBC, PILLAR BMP #### [address] Employee Lipid Profileon LDL Cholesterol,Calculate d 95 mg/dL Normal 0-100 [facility] Comment on above: Result Comment: LDL ATP III CLASSIFICATION LDL less than 100 mg/dL Optimal LDL 100-129 mg/dL Near or above optimal LDL 130-159 mg/dL Borderline high LDL 160-189 mg/dL High LDL greater than 189 mg/dL Very high Performed By: #### P ILLAR TSH, PILLAR LIPID, PILLAR CBC, PILLAR BMP #### [facility] [address] Triglyceride w/Reflex 79 mg/dL Normal 0-149 [facility] [...] PILLAR LIPID, PILLAR CBC, PILLAR BMP #### [facility] [address] VLDL CHOLESTEROL 15 mg/dL Normal [facility] Comment on above: Performed By: #### P ILLAR TSH, PILLAR LIPID, PILLAR CBC, PILLAR BMP #### [facility] [address] Employee Thyroid Stim Hormon gokul 04-06-2024 Employee Thyroid Stim Hormone 2.72 u[iU]/mL Normal 0.45-5.33 [facility] Comment on above: Result Comment: PERF ORMED BY: [place] [address] PATHOLOGIST [employer] JORDI SMITH M.D. Performed By: #### P ILLAR TSH, PILLAR LIPID, PILLAR CBC, PILLAR BMP #### [address] Eosinophils Auto (Bld) [#/Vo l]Ordered By: Addi Ortega on 04-06-2024 Eosinophils (Bld) [#/Vol] Automated eosinophil count 0.0-0.45 [facility] Eosinophils/100 WBC Auto (Bl d)Ordered By: Addi Ortega on 04-06-2024 Eosinophils/100 WBC (Bld) Automated eosinophil % . [facility] Erythrocyte distribution wid th Auto (RBC) [Ratio]Ordered By: Addi Ortega on 04-06-2024 Erythrocyte distribution width (RBC) [Ratio] Erythrocyte distribution width [Ratio] by Automated count 11.9-15.3 [facility] Erythrocyte distribution wid th [Ratio] by Automated countOrdered By: Addi Ortega on 04-06-2024 Erythrocyte distribution width (RBC) [Ratio] 12.7 % Normal 11.9-15.3 [facility] Comment on above: Performed By: #### P ILLAR TSH, PILLAR LIPID, PILLAR CBC, PILLAR BMP #### [facility] [address] Erythrocytes [#/volume] in B lood by Automated countOrdered By: Addi Ortega on 08-22-2024 RBC (Bld) [#/Vol] 4.04 10*6/uL Normal 3.60-5.00 [facility] Comment on above: Performed By: #### P ILLAR TSH, PILLAR LIPID, PILLAR CBC, PILLAR BMP #### [facility] [address] [place] [address] [place] Glucose [Mass/volume] in Ser um or PlasmaOrdered By: Addi Ortega on 04-06-2024 Glucose [Mass/Vol] 82 mg/dL Normal 70-100 [facility] Comment on above: Performed By: #### P ILLAR TSH, PILLAR LIPID, PILLAR CBC, PILLAR BMP #### [facility] [address] [place] [address] [place] Glucose [Mass/Vol] Glucose [Mass/volume ] in Serum or Plasma 70-100 [facility] Hematocrit Auto (Bld) [Volum e fraction]Ordered By: Addi Ortega on 04-06-2024 Hematocrit (Bld) [Volume fraction] Hematocrit [Volume Fraction] of Blood by Automated count 34.0-46.4 [facility] Hematocrit [Volume Fraction] of Blood by Automated countOrdered By: Addi Ortega on 04-06-2024 Hematocrit (Bld) [Volume fraction] 37.6 % Normal 34.0-46.4 [facility] Comment on above: Performed By: #### P ILLAR TSH, PILLAR LIPID, PILLAR CBC, PILLAR BMP #### [facility] [address] [place] [address] [place] Hemoglobin [Mass/volume] in BloodOrdered By: Addi Ortega on 04-06-2024 Hemoglobin (Bld) [Mass/Vol] 13.3 g/dL Normal 11.8-15.4 [facility] Comment on above: Performed By: #### P ILLAR TSH, PILLAR LIPID, PILLAR CBC, PILLAR BMP #### [facility] [address] [place] [address] [place] Hemoglobin (Bld) [Mass/Vol] Hemoglobin [Mass/volume] in Blood 11.8-15.4 [facility] Leukocytes [#/volume] correc hamilton for nucleated erythrocytes in Blood by Automated counOrdered By: Addi Ortega on 04-06-2024 WBC corrected for nucl RBC Auto (Bld) [#/Vol] 8.9 10*3/uL 3.8-11.6 [facility] WBC corrected for nucl RBC Auto (Bld) [#/Vol] Leukocytes [#/volume] corrected for nucleated erythrocytes in Blood by Automated coun 3.8-11.6 [facility] Leukocytes [#/volume] in Blo od by Automated countOrdered By: Addi Ortega on 04-06-2024 WBC (Bld) [#/Vol] 8.9 10*3/uL Normal 3.8-11.6 [facility] Comment on above: Performed By: #### P ILLAR TSH, PILLAR LIPID, PILLAR CBC, PILLAR BMP #### [facility] [address] [place] [address] Lymphocytes Auto (Bld) [#/Vo l]Ordered By: Addi Ortega on 04-06-2024 Lymphocytes (Bld) [#/Vol] Lymphocytes [#/volume] in Blood by Automated count 1.00-4.8 [facility] Lymphocytes [#/volume] in Bl ood by Automated countOrdered By: Addi Ortega on 04-06-2024 Lymphocytes (Bld) [#/Vol] 2.5 10*3/uL Normal 1.00-4.8 [facility] Comment on above: Performed By: #### P ILLAR TSH, PILLAR LIPID, PILLAR CBC, PILLAR BMP #### [facility] [address] [place] [address] [place] Lymphocytes/100 WBC Auto (Bl d)Ordered By: Addi Ortega on 04-06-2024 Lymphocytes/100 WBC (Bld) Lymphocytes/100 leukocytes in Blood by Automated count . [facility] Lymphocytes/100 leukocytes i n Blood by Automated countOrdered By: Addi Ortega on 04-06-2024 Lymphocytes/100 WBC (Bld) 28.8 % Normal . [facility] Comment on above: Performed By: #### P ILLAR TSH, PILLAR LIPID, PILLAR CBC, PILLAR BMP #### [facility] [address] [place] [address] [place] MCH Auto (RBC) [Entitic mass ]Ordered By: Addi Ortega on 04-06-2024 MCH (RBC) [Entitic mass] MCH [Entitic mass] by Automated count 24.7-34.3 [facility] MCH [Entitic mass] by Automa hamilton countOrdered By: Addi Ortega on 04-06-2024 MCH (RBC) [Entitic mass] 32.9 pg Normal 24.7-34.3 [facility] Comment on above: Performed By: #### P ILLAR TSH, PILLAR LIPID, PILLAR CBC, PILLAR BMP #### [facility] [address] MCHC Auto (RBC) [Mass/Vol]Or dered By: Addi Ortega on 04-06-2024 MCHC (RBC) [Mass/Vol] 35.4 g/dL High 32.0-35.0 [facility] MCHC (RBC) [Mass/Vol] MCHC [Mass/volume] by Automated count High 32.0-35.0 [facility] MCV Auto (RBC) [Entitic vol] Ordered By: Addi Ortega on 04-06-2024 MCV (RBC) [Entitic vol] MCV [Entitic volume] by Automated count 80-100 [facility] MCV [Entitic volume] by Auto mated countOrdered By: Addi Ortega on 04-06-2024 MCV (RBC) [Entitic vol] 93.2 fL Normal 80-100 [facility] Comment on above: Performed By: #### P ILLAR TSH, PILLAR LIPID, PILLAR CBC, PILLAR BMP #### [facility] [address] Monocytes Auto (Bld) [#/Vol] Ordered By: Addi Ortega on 04-06-2024 Monocytes (Bld) [#/Vol] Automated blood monocyte count 0.0-0.8 [facility] Monocytes/100 WBC Auto (Bld) Ordered By: Addi Ortega on 04-06-2024 Monocytes/100 WBC (Bld) Automated monocyte % . [facility] Neutrophils Auto (Bld) [#/Vo l]Ordered By: Addi Ortega on 04-06-2024 Neutrophils (Bld) [#/Vol] Neutrophils [#/volume] in Blood by Automated count 1.8-7.7 [facility] Neutrophils [#/volume] in Bl ood by Automated countOrdered By: Addi Ortega on 04-06-2024 Neutrophils (Bld) [#/Vol] 5.8 10*3/uL Normal 1.8-7.7 [facility] Comment on above: Performed By: #### P ILLAR TSH, PILLAR LIPID, PILLAR CBC, PILLAR BMP #### [facility] [address] [place] [address] [place] Neutrophils/100 WBC Auto (Bl d)Ordered By: Addi Ortega on 04-06-2024 Neutrophils/100 WBC (Bld) Automated neutrophil % . [facility] No Panel InformationOrdered By: Addi Ortega on 04-06-2024 Estimated GFR (CKD-EPI) > 60.0 mL/Min [facility] Creatinine Clearance (Chem N/A [facility] Nucleated erythrocytes [Pres ence] in Blood by Automated countOrdered By: Addi Ortega on 04-06-2024 Nucleated RBC Auto Ql (Bld) 0.0 /100{WBC} 0-0.5 [facility] Nucleated RBC Auto Ql (Bld) Nucleated erythrocytes [Presence] in Blood by Automated count 0-0.5 [facility] Platelet mean volume Auto (B ld) [Entitic vol]Ordered By: Addi Ortega on 04-06-2024 Platelet mean volume (Bld) [Entitic vol] Platelet mean volume [Entitic volume] in Blood by Automated count 6.3-10.7 [facility] Platelet mean volume [Entiti c volume] in Blood by Automated countOrdered By: Addi Ortega on 04-06-2024 Platelet mean volume (Bld) [Entitic vol] 8.8 fL Normal 6.3-10.7 [facility] Comment on above: Performed By: #### P ILLAR TSH, PILLAR LIPID, PILLAR CBC, PILLAR BMP #### [facility] [address] [place] [address] [place] Platelets Auto (Bld) [#/Vol] Ordered By: Addi Ortega on 04-06-2024 Platelets (Bld) [#/Vol] Platelets [#/volume] in Blood by Automated count 150-450 [facility] Platelets [#/volume] in Bloo d by Automated countOrdered By: Addi Ortega on 04-06-2024 Platelets (Bld) [#/Vol] 274 10*3/uL Normal 150-450 [facility] Comment on above: Performed By: #### P ILLAR TSH, PILLAR LIPID, PILLAR CBC, PILLAR BMP #### [facility] [address] [place] [address] [place] Potassium [Moles/volume] in Serum or PlasmaOrdered By: Addi Ortega on 04-06-2024 Potassium [Moles/Vol] 4.0 mmol/L Normal 3.5-5.1 [facility] Comment on above: Performed By: #### P ILLAR TSH, PILLAR LIPID, PILLAR CBC, PILLAR BMP #### [facility] [address] Potassium [Moles/Vol] Potassium [Moles/v olume] in Serum or Plasma 3.5-5.1 [facility] RBC Auto (Bld) [#/Vol]Ordere d By: Addi Ortega on 04-06-2024 RBC (Bld) [#/Vol] Erythrocytes [#/volu me] in Blood by Automated count 3.60-5.00 [facility] Serum or plasma anion gap de terminationOrdered By: Addi Ortega on 04-06-2024 Anion gap [Moles/Vol] 11.0 mmol/L Normal 6.0-15.0 [facility] Comment on above: Performed By: #### P ILLAR TSH, PILLAR LIPID, PILLAR CBC, PILLAR BMP #### [facility] [address] [place] [address] [place] Anion gap [Moles/Vol] Serum or plasma an ion gap determination 6.0-15.0 [facility] Serum or plasma high density lipoprotein (HDL) cholesterol measurementOrdered By: Addi Ortega on 04-06-2024 Cholesterol in HDL [Mass/Vol] 48 mg/dL Normal 23-92 [facility] Comment on above: HDL CHOL ATP-III CLA SSIFICATION Cardiovascular RiskHDL > or equal to 60 mg/dL LOWHDL < 40 mg/dL HIGH Result Comment: HDL CHOL ATP-III CLASSIFICATION Cardiovascular Risk HDL > or equal to 60 mg/dL LOW HDL < 40 mg/dL HIGH Performed By: #### P ILLAR TSH, PILLAR LIPID, PILLAR CBC, PILLAR BMP #### [facility] [address] Serum or plasma total choles terol/high density lipoprotein (HDL) cholesterol mass ratOrdered By: Addi Ortega on 04-06-2024 Cholesterol.total/Cho lesterol in HDL [Mass ratio] 3.3 {ratio} Normal <5.0 [facility] Comment on above: Performed By: #### P ILLAR TSH, PILLAR LIPID, PILLAR CBC, PILLAR BMP #### [facility] [address] Cholesterol.total/Cho lesterol in HDL [Mass ratio] Serum or plasma total cholesterol/high density lipoprotein (HDL) cholesterol mass rat <5.0 [facility] Sodium [Moles/volume] in Ser um or PlasmaOrdered By: Addi Ortega on 04-06-2024 Sodium [Moles/Vol] 135 mmol/L Low 136-145 [facility] Comment on above: Performed By: #### P ILLAR TSH, PILLAR LIPID, PILLAR CBC, PILLAR BMP #### [facility] [address] Sodium [Moles/Vol] Sodium [Moles/volume ] in Serum or Plasma Low 136-145 [facility] Thyrotropin [Units/volume] i n Serum or PlasmaOrdered By: Addi Ortega on 04-06-2024 TSH Qn 2.72 m[IU]/L 0.45-5.33 [facility] TSH Qn Thyrotropin [Units/v olume] in Serum or Plasma 0.45-5.33 [facility] Triglyceride [Mass/volume] i n Serum or PlasmaOrdered By: Addi Ortega on 08-22-2024 Triglyceride [Mass/Vol] 79 mg/dL 0-149 [facility] Comment on above: TRIG ATP III CLASSIF ICATIONTRIG less than 150 mg/dL NormalTRIG 150-199 mg/dL Borderline highTRIG 200-500 mg/dL High TRIG greater than 500 mg/dL Very highStandard traceable to the Center for Disease Conrtrol and Prevention (CDC) test method. Triglyceride [Mass/Vol] Triglyceride [Mass/volume] in Serum or Plasma 0-149 [facility] Comment on above: TRIG ATP III CLASSIF ICATIONTRIG less than 150 mg/dL NormalTRIG 150-199 mg/dL Borderline highTRIG 200-500 mg/dL High TRIG greater than 500 mg/dL Very highStandard traceable to the Center for Disease Conrtrol and Prevention (CDC) test method. Urea nitrogen [Mass/volume] in Serum or PlasmaOrdered By: Addi Ortega on 04-06-2024 Urea nitrogen [Mass/Vol] 7 mg/dL Normal 03-09 [facility] Comment on above: Performed By: #### P ILLAR TSH, PILLYOSVANY LIPID, PILLAR CBC, PILLAR BMP #### [address] Urea nitrogen [Mass/Vol] Urea nitrogen [Mass/volume] in Serum or Plasma 03-09 [facility] WBC Auto (Bld) [#/Vol]Ordere d By: Addi Ortega on 04-06-2024 WBC (Bld) [#/Vol] Leukocytes [#/volume ] in Blood by Automated count 3.8-11.6 [facility] ED Note-Physicianon 03-20-20 ED Note-Physician ED [...] and Complexity of Problems Differential Diagnosis: [] [facility] Data External documents reviewed: [] [...] with the patient. Discussed follow-up with her RN [facility]ILY [facility]ACTICE which she will do. Discussed return precautions. [...] Nath In 3 days 03/21/2024 EDT [address] [place] [address]- Business (1) Additional Instructions: DARWIN JONES In 3 days [address] [place] [address] [place] [address]- [phone] Business (1) Additional Instructions: Patient Education Threatened Miscarriage Subchorionic Hematoma Attestation Patient seen and evaluated by the physician nutrition services assistant. Attending physician was present in the emergency department and supervised care. This visit was performed by both the physician and an APC. I performed all aspects of the MDM as documented. This report was transcribed using voice recognition software. Every effort was made to ensure accuracy, however, inadvertently computerized theatrical performer mistakes may be present. Appropriate healthc (more content not included)... Normal [facility] Comment on above: Result Comment: Elec tronically Signed By: Sunny BECKHAM, Hector Rodriguez\.br\Date and Time Signed: 03/18/24 12:11 EDT\.br\Electronically Co-Signed By: Toan [place] DO\.br\Date and Time Co-Signed: 03/20/24 07:17 EDT ABO/Rhon 03-18-2024 ABO/Rh Negative Invalid Interpretation Code [facility] Comment on above: Performed By: #### 2 [id number] #### [facility] [address] [place] [address] BLOOD BANKOrdered By: Nikky Brennan on 03-18-2024 ABO/Rh Interp Negative Invalid Interpretation Code [facility] Subsection BMPon 03-18-2024 Anion gap [Moles/Vol] 12 mmol/L Normal 6-16 [facility] Comment on above: Performed By: #### 2 [id number] #### [facility] [address] [place] [address] Calcium [Mass/Vol] 9.2 mg/dL Normal 8.9-11.1 [facility] Comment on above: Performed By: #### 2 [id number] #### [facility] [address] [place] [address] Chloride [Moles/Vol] 105 mmol/L Normal 101-111 [facility] Comment on above: Performed By: #### 2 [id number] #### [facility] [address] [place] [address] CO2 [Moles/Vol] 23 mmol/L Normal 21-31 [facility] Comment on above: Performed By: #### 2 [id number] #### [facility] [address] [place] [address] Creatinine [Mass/Vol] 0.5 mg/dL Normal 0.5-1.3 [facility] Comment on above: Performed By: #### 2 [id number] #### [facility] [address] [place] [address] Glucose [Mass/Vol] 92 mg/dL Normal 55-199 [facility] Comment on above: Performed By: #### 2 [id number] #### [facility] [address] [place] [address] Potassium [Moles/Vol] 3.8 mmol/L Normal 3.5-5.3 [facility] Comment on above: Performed By: #### 2 [id number] #### [facility] [address] [place] [address] Sodium [Moles/Vol] 136 mmol/L Normal 135-145 [facility] Comment on above: Performed By: #### 2 [id number] #### [facility] [address] [place] [address] Urea nitrogen [Mass/Vol] 9 mg/dL Normal 5-21 [facility] Comment on above: Performed By: #### 2 [id number] #### [facility] [address] [place] [address] Urea nitrogen/Creatinine [Mass ratio] 18 No Units Normal 10-20 [facility] Comment on above: Performed By: #### 2 [id number] #### [facility] [address] [place] [address] BhCG Quanton 03-18-2024 [place] [address] m[IU]/mL High 1-3 [facility] Comment on above: Result Comment: 'F N ON < 1 - 3' ' 0.2 - 1 WEEK = 5 TO 50' ' 1 - 2 WEEKS = 50 - 500' ' 2 - 3 WEEKS = 100 - 5000' ' 3 - 4 WEEKS = 500 - 63546' ' 4 - 5 WEEKS = 1000 - 31442' ' 5 - 6 WEEKS = 36267 - 321215' ' 6 - 8 WEEKS = 71446 - 802677' ' 8 - 12 WEEKS = 24890 - 678953' Performed By: #### 2 [id number] #### [facility] [address] [place] [address] CBC w/ Auto Diffon 4 Basophils/100 WBC (Bld) 0.6 % Normal 0.0-2.0 [facility] Comment on above: Performed By: #### 2 [id number] #### [facility] [address] [place] [address] Basophils/Leukocytes Auto (Bld) [Pure # fraction] 0.0 E9/L Normal 0.0-0.2 [facility] Comment on above: Performed By: #### 2 [id number] #### [facility] [address] [place] [address] Eosinophils (Bld) [#/Vol] 0.0 E9/L Normal 0.0-0.5 [facility] Comment on above: Performed By: #### 2 [id number] #### [facility] [address] [place] [address] Eosinophils/100 WBC (Bld) 0.5 % Normal 0.0-8.0 [facility] Comment on above: Performed By: #### 2 [id number] #### [facility] [address] [place] [address] Erythrocyte distribution width (RBC) [Ratio] 12.5 % Normal 10.9-14.2 [facility] Comment on above: Performed By: #### 2 [id number] #### [facility] [address] [place] [address] Hematocrit (Bld) [Volume fraction] 40.2 % Normal 34.0-46.0 [facility] Comment on above: Performed By: #### 2 [id number] #### [facility] [address] [place] [address] Hemoglobin (Bld) [Mass/Vol] 13.8 g/dL Normal 12.0-16.0 [facility] Comment on above: Performed By: #### 2 [id number] #### [facility] [address] [place] [address] Lymphocytes (Bld) [#/Vol] 2.4 E9/L Normal 1.0-4.0 [facility] Comment on above: Performed By: #### 2 [id number] #### [facility] [address] [place] [address] Lymphocytes/100 WBC (Bld) 28.4 % Normal 14.0-50.0 [facility] Comment on above: Performed By: #### 2 [id number] #### [facility] [address] [place] [address] MCH (RBC) [Entitic mass] 32.3 pg Normal 27.0-34.0 [facility] Comment on above: Performed By: #### 2 [id number] #### [facility] [address] [place] [address] MCHC (RBC) [Mass/Vol] 34.3 g/dL Normal 31.4-36.0 [facility] Comment on above: Performed By: #### 2 [id number] #### [facility] [address] [place] [address] MCV (RBC) [Entitic vol] 94.2 fL Normal 80.0-100.0 [facility] Comment on above: Performed By: #### 2 [id number] #### [facility] [address] [place] [address] Monocytes (Bld) [#/Vol] 0.4 E9/L Normal 0.2-1.0 [facility] Comment on above: Performed By: #### 2 [id number] #### [facility] [address] [place] [address] Neutrophils (Bld) [#/Vol] 5.4 E9/L Normal 2.0-7.5 [facility] Comment on above: Performed By: #### 2 [id number] #### [facility] [address] [place] [address] Neutrophils/100 WBC (Bld) 65.4 % Normal 36.0-75.0 [facility] Comment on above: Performed By: #### 2 [id number] #### [facility] [address] [place] [address] Platelet mean volume (Bld) [Entitic vol] 8.5 fL Normal 6.4-10.8 [facility] Comment on above: Performed By: #### 2 [id number] #### [facility] [address] [place] [address] Platelets (Bld) [#/Vol] 249.0 E9/L Normal 150.0-500. 0 [facility] Comment on above: Performed By: #### 2 [id number] #### [facility] [address] [place] [address] RBC (Bld) [#/Vol] 4.3 E12/L Normal 4.3-5.9 [facility] Comment on above: Performed By: #### 2 [id number] #### [facility] [address] [place] [address] WBC corrected for nucl RBC Auto (Bld) [#/Vol] 8.3 E9/L Normal 4.0-11.0 [facility] Comment on above: Performed By: #### 2 [id number] #### [facility] [address] [place] [address] CHEMISTRYOrdered By: SYSTEM SYSTEM on 03-18-2024 Anion [...] 199 mg/[place] [address] m[IU]/mL High 1 - 3 mIU/mL [facility] Comment on above: Result Comment: 'F N ON < 1 - 3' ' 0.2 - 1 WEEK = 5 TO 50' ' 1 - 2 WEEKS = 50 - 500' ' 2 - 3 WEEKS = 100 - 5000' ' 3 - 4 WEEKS = 500 - 24725' ' 4 - 5 WEEKS = 1000 - 63373' ' 5 - 6 WEEKS = 70870 - 789208' ' 6 - 8 WEEKS = 38139 - 567068' ' 8 - 12 WEEKS = 60921 - 120878' Potassium [Moles/Vol] 3.8 mmol/L Normal 3.5 - 5.3 mmol/L [facility] Sodium [Moles/Vol] 136 mmol/L Normal 135 - 145 mmol/L [facility] Urea nitrogen [Mass/Vol] 9 mg/dL Normal 5 - 21 mg/dL [facility] Urea nitrogen/Creatinine [Mass ratio] 18 mg/mg Normal 10 - 20 [facility] ED Clinical Summaryon 2023 ED Clinical Summary ED Clinical Summary [place] [id number] ED Clinical Summary Person Information Name: TAWNYA HERRING [facility] Age: 28 Years : 1995 Sex: Female Language: [place] Island[place] PCP: DARWIN JONES CNP Marital Status: Single Phone: [phone] Visit Id: Visit Reason: Vaginal bleeding - [...] 03/18/2024 12:15:02 03/18/2024 12:15:02 03/18/2024 12:15:02 ADDRESS: [address] [place] [phone] PHYS DOC NOTES: MEDICAL INFORMATION: Prescriptions Given: Medications to Continue with No Changes Other Medications citalopram (CeleXA 20 mg Tab) 1 Tablets By Mouth every day. PATIENT EDUCATION INFORMATION: Instructions: Threatened Miscarriage; Subchorionic Hematoma Follow up: With: Address: When: [address], [place] [address] Business (1) In 3 days 03/21/2024 With: Address: When: DARWIN JONES [address] [place], [place] [address]E [facility] [place] [address] [phone] Business (1) In 3 days DIAGNOSIS: Subchorionic bleed; Threatened Normal [facility] ED Patient Summaryon 024 ED Patient Summary ED Patient Summary [address] [address] Patient Discharge Instructions Person Information Name: TAWNYA HERRING Age: 28 Years Arrival Date: 03/18/2024 08:06:19 Discharge Diagnosis: Subchorionic bleed; Threatened Primary Care Physician: DARWIN JONES CNP Provider Information Primary Provider: Toan Lake DO Advanced [employer] Kiln Placer:None The exam and treatment you received in the Emergency Department were for an urgent problem and are not intended as complete care. It is important that you follow up with a doctor, nurse practitioner, or physician?s nutrition services assistant for ongoing care. If your symptoms [...] instructions: Follow-up Instructions: With: Address: When: [address], [place] [address] Business (1) In 3 days 03/21/2024 With: Address: When: DARWIN JONES [address] [facility] [place] [address] [phone] [employer] (1) In 3 days In the event that this physician does not participate in your insurance network, please consult with your insurance company to find a nearby participating provider. Patient Education Materials: Threatened Miscarriage; Subchorionic Hematoma A MESSAGE TO ALL PATIENTS REGARDING OPIOIDS PRESCRIPTION OPIOIDS: WHAT YOU NEED TO KNOW Prescription opioids can be used to help relieve wqnylbym-wm-ejdslk pain and are often prescribed following a [...] you be (more content not included)... Normal [facility] HEMATOLOGYOrdered By: SYSTEM SYSTEM on 03-18-2024 [...] 24 Bilirubin Ql (U) Negative Normal Negative [facility] Comment on above: Performed By: #### 4 [id number] #### [facility] [address] [place] [address] Clarity (U) Clear Normal Clear [facility] Comment on above: Performed By: #### 4 [id number] #### [facility] [address] [place] [address] Color (U) Yellow Normal Yellow [facility] Comment on above: Result Comment: Micr oscopic readings are only performed on those samples that meet specific criteria set forth by [facility]. Performed By: #### 4 [id number] #### [facility] [address] [place] [address] Epithelial cells.squamous Auto (Urine sed) [#/Area] 0-2 Invalid Interpretation Code [facility] Comment on above: Performed By: #### 4 [id number] #### [facility] [address] [place] [address] Glucose Ql (U) Negative Normal Negative [facility] Comment on above: Performed By: #### 4 [id number] #### [facility] [address] [place] [address] Hemoglobin Auto test strip (U) [Mass/Vol] 3+ mg/dL Abnormal Negative [facility] Comment on above: Performed By: #### 4 [id number] #### [facility] [address] [place] [address] Ketones Auto test strip Ql (U) Negative Normal Negative [facility] Comment on above: Performed By: #### 4 [id number] #### [facility] [address] [place] [address] Leukocyte esterase Auto test strip Ql (U) 25 Chaparrita/uL Normal Negative [facility] Comment on above: Performed By: #### 4 [id number] #### [facility] [address] [place] [address] Mucus Auto Ql (U) Trace Normal Negative [facility] Comment on above: Performed By: #### 4 [id number] #### [facility] [address] [place] [address] Nitrite Auto test strip Ql (U) Negative Normal Negative [facility] Comment on above: Performed By: #### 4 [id number] #### [facility] [address] [place] [address] pH (U) 7.5 [pH] Invalid Interpretation Code 5.0-9.0 [facility] Comment on above: Performed By: #### 4 [id number] #### [facility] [address] [place] [address] Protein Ql (U) Trace Abnormal Negative [facility] Comment on above: Performed By: #### 4 [id number] #### [facility] [address] [place], [place] [address] RBC Ql (U) 31-75 Abnormal 0-3 [facility] Comment on above: Performed By: #### 4 [id number] #### [facility] [address] [place], [place] [address] Specific gravity (U) [Rel density] 1.023 Invalid Interpretation Code 1.005-1.03 0 [facility] Comment on above: Performed By: #### 4 [id number] #### [facility] [address] [place], [place] [address] Urobilinogen (U) [Mass/Vol] Negative Normal Negative [facility] Comment on above: Performed By: #### 4 [id number] #### [facility] [address] [place], [place] [address] WBC Auto (Urine sed) [#/Area] 0-5 Normal 0-5 [facility] Comment on above: Performed By: #### 4 [id number] #### [facility] [address] [place] [address] Type of Urine collection method Clean Catch Normal [facility] Comment on above: Performed By: #### 4 [id number] #### [facility] [address] [place], [place] [address] URINALYSISOrdered By: SYSTEM SYSTEM on 03-18-2024 Bilirubin Ql (U) Negative Normal Negativemg /dL [facility] UA Auto SS Clarity (U) Clear (03/18/24 8:17 AM) Normal Clear [facility] UA Auto SS Color (U) Yellow 1 (03/18/24 8:17 AM) Normal Yellow [facility] UA Auto SS Comment on above: Interpretive Data: M icroscopic readings are only performed on those samples that meet specific criteria set forth by [facility]. Epithelial cells.squamous Auto (Urine sed) [#/Area] 0-2 graded/HPF Invalid Interpretation Code [facility] UA Auto SS Glucose Ql (U) Negative [...] AM) Invalid Interpretation Code 5.0 - 9.0 [facility] UA Auto SS Protein Ql (U) Trace mg/dL Invalid Interpretation Code Negativemg /dL [facility] UA Auto SS RBC Ql (U) 31-75 graded/HPF Invalid Interpretation Code 0-3graded/ HPF [facility] UA Auto SS Specific gravity (U) [Rel density] 1.023 *NA* (03/18/24 8:17 AM) Invalid Interpretation Code 1.005 - 1.030 [facility] UA Auto SS Urobilinogen (U) [Mass/Vol] Negative Normal Negativemg /dL [facility] UA Auto SS WBC Auto (Urine sed) [#/Area] 0-5 graded/HPF Normal 0-5graded/ HPF [facility] UA Auto SS URINALYSISOrdered By: Hector quiroga on 03-18-2024 UA Spec Desc Clean Catch (03/18/24 8:17 AM) Normal [facility] UA Auto SS US 1st Trimesteron 03-18-2024 [...] intrauterine , with heart rate 125 bpm. Boxholm-rump length 3.22 mm. Mean sac diameter 1.74 [...] Transabdominal Ultrasound Performed Transvaginal Ultrasound Performed Normal [facility] US Transvaginalon 03-18-2024 US Transvaginal Exam Date/Time: 03/18/2024 11:41 EDT Reason for Exam: Vaginal bleeding Report Please review ultrasound pelvis for ultrasound transvaginal report. Ordering Provider: Hector Correa FINAL REPORT Dictated: 03/18/2024 12:06 pm Luis Alfredo Bunch MD Signed (Electronic Signature): 03/18/2024 12:06 pm Signed by: Luis Alfredo Bunch MD Transcribed by: EDWIN Technologist: MARCOS Normal [facility] eGFRon 03-18-2024 eGFR 131 mL/min/1.73 m2 Normal >=59 [facility] Comment on above: Order Comment: Order added by Discern Expert. Performed By: #### 1 [id number] #### [facility] [address] [place] [address] Progesteroneon 02-24-2024 Progesterone 9.9 ng/mL Normal . [facility] Comment on above: Result Comment: Foll icular phase 0.1 - 0.9 Luteal phase 1.8 - 23.9 Ovulation phase 0.1 - 12.0 First trimester 11.0 - 44.3 Second trimester 25.4 - 83.3 Third trimester 58.7 - 214.0 Postmenopausal 0.0 - 0.1 Performed at: [address] [id number] Fire Protection Designer: Alexis Ashton PhD, Phone: [phone] PERFORMED BY: [place] [address] [place] [address] PATHOLOGIST [employer] JORDI SMITH M.D. Performed By: #### P ANTHONY ####[facility] , Serum or plasma progesterone measurement (mass/volume)Ordered By: Brain Way on 02-24-2024 Progesterone [Mass/Vol] 9.9 ng/mL . [facility] Comment on above: Follicular phase 0.1 - 0.9 Luteal phase 1.8 - 23.9 Ovulation phase 0.1 - 12.0 First trimester 11.0 - 44.3 Second trimester 25.4 - 83.3 Third trimester 58.7 - 214.0 Postmenopausal 0.0 - 0.1Performed at: [address] [id number] Director: Alexis Ashton PhD, Phone: [phone] Progesteroneon 01-24-2024 Progesterone 8.5 ng/mL Normal . [facility] Comment on above: Result Comment: Foll icular phase 0.1 - 0.9 Luteal phase 1.8 - 23.9 Ovulation phase 0.1 - 12.0 First trimester 11.0 - 44.3 Second trimester 25.4 - 83.3 Third trimester 58.7 - 214.0 Postmenopausal 0.0 - 0.1 Performed at: [address] [id number] Fire Protection Designer: Alexis Ashton PhD, Phone: [phone] PERFORMED BY: [place] [address] [place] [address] PATHOLOGIST [employer] JORDI SMITH M.D. Performed By: #### P ANTHONY ####[facility] , Serum or plasma progesterone measurement (mass/volume)Ordered By: Brain Way on 01-24-2024 Progesterone [Mass/Vol] 8.5 ng/mL . [facility] Comment on above: Follicular phase 0.1 - 0.9 Luteal phase 1.8 - 23.9 Ovulation phase 0.1 - 12.0 First trimester 11.0 - 44.3 Second trimester 25.4 - 83.3 Third trimester 58.7 - 214.0 Postmenopausal 0.0 - 0.1Performed at: [address] [id number] Director: Alexis Ashton PhD, Phone: [phone] Progesteroneon 12-27-2023 Progesterone 13.3 ng/mL Normal . [facility] Comment on above: Result Comment: Foll icular phase 0.1 - 0.9 Luteal phase 1.8 - 23.9 Ovulation phase 0.1 - 12.0 First trimester 11.0 - 44.3 Second trimester 25.4 - 83.3 Third trimester 58.7 - 214.0 Postmenopausal 0.0 - 0.1 Performed at: [address] [id number] Fire Protection Designer: Alexis Ashton PhD, Phone: [phone] PERFORMED BY: [place] [address] [place] [id number] PATHOLOGIST [employer] JORDI SMITH M.D. Performed By: #### P ANTHONY ####[facility] , Serum or plasma progesterone measurement (mass/volume)Ordered By: Brain Way on 12-27-2023 Progesterone [Mass/Vol] 13.3 ng/mL . [facility] Comment on above: Follicular phase 0.1 - 0.9 Luteal phase 1.8 - 23.9 Ovulation phase 0.1 - 12.0 First trimester 11.0 - 44.3 Second trimester 25.4 - 83.3 Third trimester 58.7 - 214.0 Postmenopausal 0.0 - 0.1Performed at: [address] [id number] Director: Alexis Ashton PhD, Phone: [phone] Progesteroneon 11-30-2023 Progesterone 16.9 ng/mL Normal . [facility] Comment on above: Result Comment: Foll icular phase 0.1 - 0.9 Luteal phase 1.8 - 23.9 Ovulation phase 0.1 - 12.0 First trimester 11.0 - 44.3 Second trimester 25.4 - 83.3 Third trimester 58.7 - 214.0 Postmenopausal 0.0 - 0.1 Performed at: [facility] [address] [place], [place] [id number] Fire Protection Designer: Alexis Ashton PhD, Phone: [phone] PERFORMED BY: [facility] [address] [place] [address] PATHOLOGIST [employer] JORDI SMITH M.D. Performed By: #### P ANTHONY ####[facility] , Serum or plasma progesterone measurement (mass/volume)Ordered By: Brain Way on 11-30-2023 Progesterone [Mass/Vol] 16.9 ng/mL . [facility] Comment on above: Follicular phase 0.1 - 0.9 Luteal phase 1.8 - 23.9 Ovulation phase 0.1 - 12.0 First trimester 11.0 - 44.3 Second trimester 25.4 - 83.3 Third trimester 58.7 - 214.0 Postmenopausal 0.0 - 0.1Performed at: [facility] [place] [id number] Director: Alexis Ashton PhD, Phone: [phone] CNOVon 11-18-2023 CNOV Office Visit (ENDOMN ) -- TAWNYA HERRING ([id number]) 1995 F Date Time Provider Department 11/18/23 8:30 AM RUBY WHITTINGTON ENDOMN During your visit today, we recorded the following information about you: Pulse Blood pressure Weight Last Period 100/minute 132/92 110.7 kg 11/09/23 Odalis Greene 11/18/2023 7:58 AM Signed Thank you for choosing the [facility] Department of Endocrinology, Diabetes and Metabolism. Did you know that you need to call 48 hours in advance of your scheduled visit, if you are unable to make your appointment? The [facility] [place] thanks you for your commitment, because patients not showing to their appointment results in a lost opportunity for patients to receive [facility] health care at the [facility]. To Cancel an appointment, please choose one of the following: - Call the Appointment Call Center at [phone] - From [employer], Go to Appointments - Cancel Appts If cancelling, consider your need to reschedule to prevent further delays in your care. To Schedule an appointment, please choose one of the following: - Call the Appointment Call Center at [phone] - From [employer], Go to Appointments - Request an Appt [...] as of 11/18/2023 - cyanocobalamin/folic acid (VITAMIN T47-BPUVP ACID) 1,000-400 mcg lozg Take by mouth (more content not included)... Normal [facility] Progesteroneon 11-01-2023 Progesterone 7.1 ng/mL Normal . [facility] Comment on above: Result Comment: Foll icular phase 0.1 - 0.9 Luteal phase 1.8 - 23.9 Ovulation phase 0.1 - 12.0 First trimester 11.0 - 44.3 Second trimester 25.4 - 83.3 Third trimester 58.7 - 214.0 Postmenopausal 0.0 - 0.1 Performed at: [facility] [employer] [facility] [id number] Fire Protection Designer: Alexis Ashton PhD, Phone: [phone] PERFORMED BY: [facility] [place] [address] PATHOLOGIST [employer] JORDI SMITH M.D. Performed By: #### P ANTHONY ####[facility] , Serum or plasma progesterone measurement (mass/volume)Ordered By: Brain Way on 11-01-2023 Progesterone [Mass/Vol] 7.1 ng/mL . [facility] Comment on above: Follicular phase 0.1 - 0.9 Luteal phase 1.8 - 23.9 Ovulation phase 0.1 - 12.0 First trimester 11.0 - 44.3 Second trimester 25.4 - 83.3 Third trimester 58.7 - 214.0 Postmenopausal 0.0 - 0.1Performed at: [facility] [place] [id number] Director: Alexis Ashton PhD, Phone: [phone] Progesteroneon 10-01-2023 Progesterone 0.9 ng/mL Normal . [facility] Comment on above: Result Comment: Foll icular phase 0.1 - 0.9 Luteal phase 1.8 - 23.9 Ovulation phase 0.1 - 12.0 First trimester 11.0 - 44.3 Second trimester 25.4 - 83.3 Third trimester 58.7 - 214.0 Postmenopausal 0.0 - 0.1 Performed at: [facility] [address] [place] [id number] Fire Protection Designer: Alexis Ashton PhD, Phone: [phone] PERFORMED BY: [facility] [address] [place] [address] PATHOLOGIST [employer] JORDI SMITH M.D. Performed By: #### P ANTHONY ####[facility] , Serum or plasma progesterone measurement (mass/volume)Ordered By: Brain Way on 10-01-2023 Progesterone [Mass/Vol] 0.9 ng/mL . [facility] Comment on above: Follicular phase 0.1 - 0.9 Luteal phase 1.8 - 23.9 Ovulation phase 0.1 - 12.0 First trimester 11.0 - 44.3 Second trimester 25.4 - 83.3 Third trimester 58.7 - 214.0 Postmenopausal 0.0 - 0.1Performed at: [facility] [address] [place], [place] [id number] Director: Alexis Ashton PhD, Phone: [phone] Ambulatory Visit Summaryon 0 09-29-2023 Ambulatory Visit Summary BELIA HERRINGJONATHAN Grubbs :1995 Visit Date:09/29/2023 Ambulatory Visit Instructions Your [...] When: Where: [address] [place] [address] [place] [address]- Medications What How Much When Why Instructions New amoxicillin-clavulanate (Augmentin 875 mg oral tablet) 1 Tablets By Mouth Every 12 hours Sinusitis BMI 38.0-38.9,adult Duration: 10 Days Pickup at [facility] New methylPREDNISolone (Medrol Dosepack 4 mg Tab) 1 Packets By Mouth As Directed Sinusitis BMI 38.0-38.9,adult Duration: 6 Days as directed on package labeling Pickup at [facility] Unchanged citalopram (CeleXA 20 mg Tab) 1 Tablets By Mouth Every day Contact prescribing physician if questions or concerns Unchanged citalopram (citalopram 20 mg Tab) Contact prescribing physician if questions or concerns Unchanged pyridoxine (Vitamin B6 100 mg Tab) By Mouth Every day Contact prescribing physician if questions or concerns Pharmacy Information [facility]: [address] [place], [place] [id number] [phone] Allergies No Known Allergies No Known Medication [...] choosing us for your care. Louie [facility] Family Medicine Office/Clini c Noteon 09-29-2023 Family [...] with voice recognition software. Occasional wrong-word or ?djmxu-b-kmps? substitutions may have occurred due to the [...] with improvement. She does not use any ooqs-qrd-tpxyjwf Flonase and has not tried any other [...] day(s), # 20 tab(s), Refills(s) 0, Pharmacy: [facility], 170.2, cm, 09/29/23 10:44:00 EST, Height/Length Dosing, 112, kg, 09/29/23 10:44:00 EST, Weight Dosing methylPREDNISolone, = 1 packet(s), Oral, As Directed, as directed on package labeling, X 6 day(s), # 21 tab(s), Refills(s) 0, Pharmacy: [facility], 170.2, cm, 09/29/23 10:44:00 EST, Height/Length Dosing, 112, kg, 09/29/23 10:44:00 EST, Weight Dosing 2. BMI 38.0-38.9,adult (Z68.38: Body mass index [BMI] 38.0-38.9, adult) The standard range for ages 18 and olde (more content not included)... Normal [facility] Comment on above: Result Comment: Elec [...] ? Medicines that treat allergies (antihistamines). ? Wiza-lbf-ttgxlkv pain relievers. ? If caused by bacteria, [...] home: Medicines ? Take, use, or apply zlwb-csb-njhjwji and prescription medicines only as told by [...] and water are not available, use hand check processing clerk. ? Do not smoke. Avoid being around people who are smoking (secondhand smoke). ? Keep all follow-up visits. This is important. Contact a health care provider if: ? You have a fever. ? Your symptoms get (more content not included)... Normal [facility] CNPSarika 07-16-2023 CNPN Telephone (ENDCMN) -- TAWNYA HERRING ([id number]) 1995 F Date Time Provider Department 07/16/23 [facility] your visit today, we recorded the [...] Encounter Status:Closed by KENAN GOMEZ on 07/16/23 [facility] CNOVon 06-08-2023 CNOV Office Visit (OTOLLN ) -- TAWNYA HERRING ([id number]) 1995 F Date Time Provider Department 06/08/23 [...] will be in touch with results via [employer] HPI: Tawnya is a 27 year old [...] Low Allergies (more content not included)... Normal [facility] Alanine aminotransferase [En zymatic activity/volume] in Serum or PlasmaOrdered By: Addi Ortega on 04-08-2023 ALT [Catalytic activity/Vol] 28 U/L 7-52 [facility] Albumin [Mass/volume] in Ser um or Plasma by Bromocresol green (BCG) dye binding methoOrdered By: Addi Ortega on 04-08-2023 Albumin BCG dye [Mass/Vol] 4.8 g/dL 3.5-5.7 [facility] Alkaline phosphatase [Enzyma tic activity/volume] in Serum or PlasmaOrdered By: Addi Ortega on 04-08-2023 ALP [Catalytic activity/Vol] 61 U/L 34-104 [facility] Aspartate aminotransferase [ Enzymatic activity/volume] in Serum or PlasmaOrdered By: Addi Ortega on 04-08-2023 AST [Catalytic activity/Vol] 13 U/L 13-39 [facility] Basophils Auto (Bld) [#/Vol] Ordered By: Addi Ortega on 04-08-2023 Basophils (Bld) [#/Vol] 0.0 10*3/uL 0.0-0.2 [facility] Basophils/100 WBC Auto (Bld) Ordered By: Addi Ortega on 04-08-2023 Basophils/100 WBC (Bld) 0.4 % . [facility] Bilirubin.total [Mass/volume ] in Serum or PlasmaOrdered By: Addi Ortega on 04-08-2023 Bilirubin [Mass/Vol] 0.4 mg/dL 0.3-1.0 [facility] Calcium [Mass/volume] in Ser um or PlasmaOrdered By: Addi Ortega on 04-08-2023 Calcium [Mass/Vol] 9.5 mg/dL 8.6-10.3 [facility] Carbon dioxide, total [Moles /volume] in Serum or PlasmaOrdered By: Addi Ortega on 04-08-2023 CO2 [Moles/Vol] 25.4 mmol/L 21.0-31.0 [facility] Chloride [Moles/volume] in S ghada or PlasmaOrdered By: Addi Ortega on 04-08-2023 Chloride [Moles/Vol] 106 mmol/L 98-107 [facility] Cholesterol [Mass/volume] in Serum or PlasmaOrdered By: Addi Ortega on 04-08-2023 Cholesterol [Mass/Vol] 162 mg/dL 140-200 [facility] Comment on above: Chol less than 200 m g/dl low riskChol 201-239 mg/dl borderline riskChol 240 mg/dl and greater high risk Cholesterol in LDL Calc [Mas s/Vol]Ordered By: Addi Ortega on 04-08-2023 Cholesterol in LDL [Mass/Vol] 99 mg/dL 0-100 [facility] Comment on above: LDL ATP III CLASSIFI CATIONLDL less than 100 mg/dL OptimalLDL 100-129 mg/dL Near or above optimalLDL 130-159 mg/dL Borderline highLDL 160-189 mg/dL HighLDL greater than 189 mg/dL Very high Cholesterol in VLDL Calc [Ma ss/Vol]Ordered By: Addi Ortega on 04-08-2023 Cholesterol in VLDL [Mass/Vol] 18 mg/dL [facility] Creatinine [Mass/volume] in Serum or PlasmaOrdered By: Addi Ortega on 04-08-2023 Creatinine [Mass/Vol] 0.59 mg/dL 0.60-1.20 [facility] Eosinophils Auto (Bld) [#/Vo l]Ordered By: Addi Ortega on 04-08-2023 Eosinophils (Bld) [#/Vol] 0.1 10*3/uL 0.0-0.45 [facility] Eosinophils/100 WBC Auto (Bl d)Ordered By: Addi Ortega on 04-08-2023 Eosinophils/100 WBC (Bld) 1.3 % . [facility] Erythrocyte distribution wid th Auto (RBC) [Ratio]Ordered By: Addi Ortega on 04-08-2023 Erythrocyte distribution width (RBC) [Ratio] 12.6 % 11.9-15.3 [facility] Globulin Calc (S) [Mass/Vol] Ordered By: Addi Ortega on 04-08-2023 Globulin (S) [Mass/Vol] 2.7 g/dL [facility] Glucose [Mass/volume] in Ser um or PlasmaOrdered By: Addi Ortega on 04-08-2023 Glucose [Mass/Vol] 83 mg/dL 70-100 [facility] Hematocrit Auto (Bld) [Volum e fraction]Ordered By: Addi Ortega on 04-08-2023 Hematocrit (Bld) [Volume fraction] 39.3 % 34.0-46.4 [facility] Hemoglobin [Mass/volume] in BloodOrdered By: Addi Ortega on 04-08-2023 Hemoglobin (Bld) [Mass/Vol] 13.6 g/dL 11.8-15.4 [facility] Leukocytes [#/volume] correc hamilton for nucleated erythrocytes in Blood by Automated counOrdered By: Addi Ortega on 04-08-2023 WBC corrected for nucl RBC Auto (Bld) [#/Vol] 7.6 10*3/uL 3.8-11.6 [facility] Lymphocytes Auto (Bld) [#/Vo l]Ordered By: Addi Ortega on 04-08-2023 Lymphocytes (Bld) [#/Vol] 2.9 10*3/uL 1.00-4.8 [facility] Lymphocytes/100 WBC Auto (Bl d)Ordered By: Addi Ortega on 04-08-2023 Lymphocytes/100 WBC (Bld) 38.6 % . [facility] MCH Auto (RBC) [Entitic mass ]Ordered By: Addi Ortega on 04-08-2023 MCH (RBC) [Entitic mass] 31.6 pg 24.7-34.3 [facility] MCHC Auto (RBC) [Mass/Vol]Or dered By: Addi Ortega on 04-08-2023 MCHC (RBC) [Mass/Vol] 34.5 g/dL 32.0-35.0 [facility] MCV Auto (RBC) [Entitic vol] Ordered By: Addi Ortega on 04-08-2023 MCV (RBC) [Entitic vol] 91.7 fL 80-100 [facility] Monocytes Auto (Bld) [#/Vol] Ordered By: Addi Ortega on 04-08-2023 Monocytes (Bld) [#/Vol] 0.4 10*3/uL 0.0-0.8 [facility] Monocytes/100 WBC Auto (Bld) Ordered By: Addi Ortega on 04-08-2023 Monocytes/100 WBC (Bld) 5.8 % . [facility] Neutrophils Auto (Bld) [#/Vo l]Ordered By: Addi Ortega on 04-08-2023 Neutrophils (Bld) [#/Vol] 4.1 10*3/uL 1.8-7.7 [facility] Neutrophils/100 WBC Auto (Bl d)Ordered By: Addi Ortega on 04-08-2023 Neutrophils/100 WBC (Bld) 53.9 % . [facility] No Panel InformationOrdered By: Addi Ortega on 04-08-2023 Estimated GFR (CKD-EPI) > 60.0 mL/Min [facility] Nicotine Metabolite Negative Cutoff=25 [facility] Comment on above: Performed at: [facility] [address] [id number] Director: Catherine Mendoza MD, Phone: [phone] Pharmacy Creatinine Clearance (Chem N/A [facility] Nucleated erythrocytes [Pres ence] in Blood by Automated countOrdered By: Addi Ortega on 04-08-2023 Nucleated RBC Auto Ql (Bld) 0.0 /100{WBC} 0-0.5 [facility] Platelet mean volume Auto (B ld) [Entitic vol]Ordered By: Addi Ortega on 04-08-2023 Platelet mean volume (Bld) [Entitic vol] 8.6 fL 6.3-10.7 [facility] Platelets Auto (Bld) [#/Vol] Ordered By: Addi Ortega on 04-08-2023 Platelets (Bld) [#/Vol] 361 10*3/uL 150-450 [facility] Potassium [Moles/volume] in Serum or PlasmaOrdered By: Addi Ortega on 04-08-2023 Potassium [Moles/Vol] 4.6 mmol/L 3.5-5.1 [facility] Protein [Mass/volume] in Ser um or PlasmaOrdered By: Addi Ortega on 04-08-2023 Protein [Mass/Vol] 7.5 g/dL 6.4-8.9 [facility] RBC Auto (Bld) [#/Vol]Ordere d By: Addi Ortega on 04-08-2023 RBC (Bld) [#/Vol] 4.29 10*6/uL 3.60-5.00 [facility] Serum or plasma albumin/glob ulin mass ratioOrdered By: Addi Ortega on 04-08-2023 Albumin/Globulin [Mass ratio] 1.8 {ratio} [facility] Serum or plasma anion gap de terminationOrdered By: Addi Ortega on 04-08-2023 Anion gap [Moles/Vol] 12.2 mmol/L 6.0-15.0 [facility] Serum or plasma high density lipoprotein (HDL) cholesterol measurementOrdered By: Addi Ortega on 04-08-2023 Cholesterol in HDL [Mass/Vol] 45 mg/dL 23-92 [facility] Comment on above: HDL CHOL ATP-III CLA SSIFICATION Cardiovascular RiskHDL > or equal to 60 mg/dL LOWHDL < 40 mg/dL HIGH Serum or plasma total choles terol/high density lipoprotein (HDL) cholesterol mass ratOrdered By: Addi Ortega on 04-08-2023 Cholesterol.total/Cho lesterol in HDL [Mass ratio] 3.6 {ratio} <5.0 [facility] Sodium [Moles/volume] in Ser um or PlasmaOrdered By: Addi Ortega on 04-08-2023 Sodium [Moles/Vol] 139 mmol/L 136-145 [facility] Thyrotropin [Units/volume] i n Serum or PlasmaOrdered By: Addi Ortega on 04-08-2023 TSH Qn 4.55 m[IU]/L 0.45-5.33 [facility] Triglyceride [Mass/volume] i n Serum or PlasmaOrdered By: Addi Ortega on 04-08-2023 Triglyceride [Mass/Vol] 92 mg/dL 0-149 [facility] Comment on above: TRIG ATP III CLASSIF ICATIONTRIG less than 150 mg/dL NormalTRIG 150-199 mg/dL Borderline highTRIG 200-500 mg/dL High TRIG greater than 500 mg/dL Very highStandard traceable to the Center for Disease Conrtrol and Prevention (CDC) test method. Urea nitrogen [Mass/volume] in Serum or PlasmaOrdered By: Addi Ortega on 04-08-2023 Urea nitrogen [Mass/Vol] 18 mg/dL 7-25 [facility] WBC Auto (Bld) [#/Vol]Ordere d By: Addi Ortega on 04-08-2023 WBC (Bld) [#/Vol] 7.6 10*3/uL 3.8-11.6 [facility] C Urineon 03-24-2023 Bacteria identified Cx [...] Locations R1: This test was performed at: [facility], [address] [place] [address], [address] , [place], Normal [facility] Comment on above: Performed By: #### 2 013532, 3108936, 51749894, 3950171, 0429449, 5159380 #### [facility] [address] [place] [address] Abdomen/Pelvis w/o Contra ston 03-23-2023 CT [...] Oral contrast amount in ml's: 0 Normal [facility] Discharge Instructionson Discharge Instructions [id number]:127 Normal [facility] ED Note-Physicianon 03-23-20 ED Note-Physician Basic [...] any medications. States that she was at [facility], where she did wait about [...] day(s), # 28 cap(s), Refills(s) 0, Pharmacy: [facility], 170.2, cm, 03/22/23 20:14:00 EDT, Height/Length Dosing, 113.5, kg, 03/22/23 20:14:00 EDT, Weight Dosing ketorolac, 30 mg = 1 mL, Injection, IV Push, Once, Stop date 03/22/23 20:51:00 EDT, STAT, Start date 03/22/23 20:51:00 EDT, 03/22/23 20:51:00 EDT ondansetron, 4 mg = 2 mL, Injection, IV Push, Once, Stop date 03/22 (more content not included)... Normal [facility] Comment on above: Result Comment: Elec tronically Signed By: Hector Correa PA-C\.br\Date and Time Signed: 03/22/23 23:35 EDT\.br\Electronically Co-Signed By: Gabriel Curtis DO.br\Date and Time Co-Signed: 03/23/23 03:21 EDT RAD - Preliminary Cat Scan R eporton 03-23-2023 RAD - Preliminary Cat Scan Report [id number]:127 Normal [facility] Auto Diffon 03-22-2023 Basophils/100 WBC (Bld) 0.5 % Normal 0.0-2.0 [facility] Comment on above: Order Comment: Order Added by Discern Expert. Performed By: #### 2 385065, 0486327, 29044438, 2015392, 2433256, 6244922 #### [facility] [address] [place] [address] Basophils/Leukocytes Auto (Bld) [Pure # fraction] 0.0 E9/L Normal 0.0-0.2 [facility] Comment on above: Order Comment: Order Added by Discern Expert. Performed By: #### 2 865664, 6442041, 38173977, 6130641, 5637591, 8002604 #### [facility] [address] [place] [address] Eosinophils/100 WBC (Bld) 1.5 % Normal 0.0-8.0 [facility] Comment on above: Order Comment: Order Added by Discern Expert. Performed By: #### 2 376996, 1805968, 73219405, 4343929, 6649984, 8214730 #### [facility] [address] [place] [address] Eosinophils/Leukocyte s Auto (Bld) [Pure # fraction] 0.1 E9/L Normal 0.0-0.5 [facility] Comment on above: Order Comment: Order Added by Discern Expert. Performed By: #### 2 691433, 5341937, 50625921, 6317497, 4896950, 0741963 #### [facility] [address] [place] [address] Lymphocytes/100 WBC (Bld) 34.9 % Normal 14.0-50.0 [facility] Comment on above: Order Comment: Order Added by Discern Expert. Performed By: #### 2 612691, 8091904, 97151094, 8672980, 5261312, 8071309 #### [facility] [address] [place] [address] Lymphocytes/Leukocyte s Auto (Bld) [Pure # fraction] 3.4 E9/L Normal 1.0-4.0 [facility] Comment on above: Order Comment: Order Added by Discern Expert. Performed By: #### 2 925094, 0759242, 91639812, 7363924, 2097668, 5845025 #### [facility] [address] [place] [address] Monocytes/100 WBC (Bld) 6.0 % Normal 4.0-14.0 [facility] Comment on above: Order Comment: Order Added by Discern Expert. Performed By: #### 2 517812, 4614599, 50338059, 5728267, 9636682, 5577036 #### [facility] [address] [place] [address] Monocytes/Leukocytes Auto (Bld) [Pure # fraction] 0.6 E9/L Normal 0.2-1.0 [facility] Comment on above: Order Comment: Order Added by Mundo Expert. Performed By: #### 2 148319, 3940615, 77073708, 7523656, 6232307, 1997266 #### [facility] [address] [place] [address] Neutrophils/100 WBC (Bld) 57.1 % Normal 36.0-75.0 [facility] Comment on above: Order Comment: Order Added by Mundo Expert. Performed By: #### 2 249400, 3856610, 44438695, 3613421, 2436671, 7942713 #### [facility] [address] [place] [address] Neutrophils/Leukocyte s Auto (Bld) [Pure # fraction] 5.6 E9/L Normal 2.0-7.5 [facility] Comment on above: Order Comment: Order Added by Mundo Expert. Performed By: #### 2 102137, 4639382, 36212523, 7974006, 0429355, 1684711 #### [facility] [address] [place] [address] BMPon 03-22-2023 Creatinine [Mass/Vol] 0.5 mg/dL Normal 0.5-1.3 [facility] Comment on above: Performed By: #### 2 059298, 3780475, 97892862, 5292632, 9928900, 7910328 #### [facility] [address] [place] [address] Urea nitrogen [Mass/Vol] 15 mg/dL Normal 5-21 [facility] Comment on above: Performed By: #### 2 118012, 2047361, 81394249, 3590121, 9069370, 5695839 #### [facility] [address] [place] [address] Urea nitrogen/Creatinine [Mass ratio] 30 No Units High 10-20 [facility] Comment on above: Performed By: #### 2 241299, 7192607, 05792026, 5078488, 0694835, 3550651 #### [facility] [address] [place] [address] Anion gap [Moles/Vol] 15 mmol/L Normal 6-16 [facility] Comment on above: Performed By: #### 2 668309, 5833053, 78188897, 8607028, 4768357, 3136701 #### [facility] [address] [place] [address] Calcium [Mass/Vol] 9.6 mg/dL Normal 8.9-11.1 [facility] Comment on above: Performed By: #### 2 725160, 7115800, 74902319, 8268743, 7259234, 2650691 #### [facility] [address] [place] [address] Chloride [Moles/Vol] 103 mmol/L Normal 101-111 [facility] Comment on above: Performed By: #### 2 842458, 1491610, 03945918, 5384978, 0694812, 0790653 #### [facility] [address] [place] [address] CO2 [Moles/Vol] 23 mmol/L Normal 21-31 [facility] Comment on above: Performed By: #### 2 161067, 2730793, 14516964, 1166964, 1950281, 3653526 #### [facility] [address] [place] [address] Glucose [Mass/Vol] 84 mg/dL Normal 55-199 [facility] Comment on above: Result Comment: If t his glucose result represents a fasting glucose, interpretation should refer to the following reference range: 55-99 mg/dL Performed By: #### 2 352046, 5717287, 71612016, 5291181, 5194019, 5910595 #### [facility] [address] [place] [address] Potassium [Moles/Vol] 3.7 mmol/L Normal 3.5-5.3 [facility] Comment on above: Performed By: #### 2 678995, 3246168, 23509606, 8549721, 7078644, 2628971 #### [facility] [address] [place] [address] Sodium [Moles/Vol] 137 mmol/L Normal 135-145 [facility] Comment on above: Performed By: #### 2 934375, 3841848, 93864023, 8561409, 5495579, 4081402 #### [facility] [address] [place] [address] CBC w/ Auto Diffon 3 Erythrocyte distribution width (RBC) [Ratio] 12.5 % Normal 10.9-14.2 [facility] Comment on above: Performed By: #### 2 450397, 2281260, 71347979, 5772323, 1255465, 6835182 #### [facility] [address] [place] [address] Hematocrit (Bld) [Volume fraction] 37.7 % Normal 34.0-46.0 [facility] Comment on above: Performed By: #### 2 715585, 4895966, 26239895, 5613603, 2857064, 3777485 #### [facility] [address] [place] [address] Hemoglobin (Bld) [Mass/Vol] 13.1 g/dL Normal 12.0-16.0 [facility] Comment on above: Performed By: #### 2 230760, 4351361, 81649607, 3310023, 8152318, 5888055 #### [facility] [address] [place] [address] MCH (RBC) [Entitic mass] 31.9 pg Normal 27.0-34.0 [facility] Comment on above: Performed By: #### 2 383764, 8783276, 35838177, 3360174, 7621635, 0724677 #### [facility] [address] [place] [address] MCHC (RBC) [Mass/Vol] 34.8 g/dL Normal 31.4-36.0 [facility] Comment on above: Performed By: #### 2 942961, 5858582, 86104654, 9098431, 4943838, 4265436 #### [facility] [address] [place] [address] MCV (RBC) [Entitic vol] 91.6 fL Normal 80.0-100.0 [facility] Comment on above: Performed By: #### 2 756352, 4431234, 14925967, 1602016, 6608133, 8128808 #### [facility] [address] [place] [address] Platelet mean volume (Bld) [Entitic vol] 7.6 fL Normal 6.4-10.8 [facility] Comment on above: Performed By: #### 2 814489, 9752986, 68478203, 5554713, 4918090, 3498692 #### [facility] [address] [place] [address] Platelets (Bld) [#/Vol] 306.0 E9/L Normal 150.0-500. 0 [facility] Comment on above: Performed By: #### 2 264318, 0070614, 84665450, 0080395, 1161702, 1489881 #### [facility] [address] [place] [address] RBC (Bld) [#/Vol] 4.1 E12/L Low 4.3-5.9 [facility] Comment on above: Performed By: #### 2 050298, 7917085, 08900258, 1430111, 5512620, 4789731 #### [facility] [address] [place] [address] WBC corrected for nucl RBC Auto (Bld) [#/Vol] 9.8 E9/L Normal 4.0-11.0 [facility] Comment on above: Performed By: #### 2 493734, 9052443, 55851887, 0307910, 5908128, 5354202 #### [facility] [address] [place] [address] CHEMISTRYOrdered By: SYSTEM SYSTEM on 03-22-2023 Albumin [...] Consent for Treatmenton Consent for Treatment [id number]:127 Normal [facility] ED Clinical Summaryon 2022 ED Clinical Summary (Inserted Image. Hayley ble to display) [place] [id number] ED Clinical Summary Person Information Name: TAWNYA HERRING [facility] Age: 27 Years : 1995 Sex: Female Language: [place] PCP: DARWIN JONES CNP Marital Status: Single Phone: [phone] Visit Id: Visit Reason: Dysuria; Nausea; Flank [...] 03/22/2023 22:52:44 03/22/2023 22:52:44 03/22/2023 22:52:44 ADDRESS: [address] [place] [id number] PHYS DOC NOTES: MEDICAL INFORMATION: Prescriptions Given: New Medications [facility], [address] [place] [id number], [phone] cephalexin (Keflex 500 mg Cap) 1 Capsules By Mouth every 6 hours for 7 Days. Refills: 0. Medications to Continue with No Changes Other Medications acetaminophen-hydrocodone ([place] 325 mg-5 mg oral tablet) 2 Tablets [...] EDUCATION INFORMATION: Instructions: Urinary Tract Infection, Adult, Ywyx-mo-Kfgc Follow up: With: Address: When: [facility] [address] [place] [phone] Business (1) In 3 days 03/25/2023 Comments: Follow-up with your primary care provider in 3 to 5 days. If symptoms worsen, do not improve, or new symptoms arise please report back to emergency department for further evaluation. DIAGNOSIS: UTI (urinary tract infection) Normal [facility] ED Patient Education Noteon 03-22-2023 ED [...] these instructions at home: Medicines ? Take gthb-ulz-ygvtofk and prescription medicines only as told by [...] provider. Document Revised: 03/14/2021 Document Reviewed: 03/14/2021 [email or web address] Patient Education ? 2022 [place]aro. Normal [facility] ED Patient Summaryon 023 ED Patient Summary (Inserted Image. Hayley ble to display) [place] [id number] Patient Discharge Instructions Person Information Name: TAWNYA HERRING Age: 27 Years Arrival Date: 03/22/2023 19:52:37 Discharge Diagnosis: UTI (urinary tract infection) Primary Care Physician: DARWIN JONES CNP Provider Information Primary Provider: Gabriel Curtis DO Advanced [employer] Placer:None The exam and treatment you received in the Emergency Department were for an urgent problem and are not intended as complete care. It is important that you follow up with a doctor, nurse practitioner, or physician?s nutrition services assistant for ongoing care. If your symptoms [...] Instructions: With: Address: When: DARWIN JONES [address] [place] [phone] [employer] (1) In 3 days 03/25/2023 Comments: Follow-up [...] Patient Education Materials: Urinary Tract Infection, Adult, Oqzi-tv-Drlc A MESSAGE TO ALL PATIENTS REGARDING OPIOIDS PRESCRIPTION OPIOIDS: WHAT YOU NEED TO KNOW Prescription opioids can be used to help relieve kdsqzgli-ud-icopdd pain and are often prescribed following a [...] of op (more content not included)... Normal [facility] HEMATOLOGYOrdered By: SYSTEM SYSTEM on 03-22-2023 [...] 03-22-2023 Albumin [Mass/Vol] 4.2 g/dL Normal 3.3-5.0 [facility] Comment on above: Performed By: #### 2 338354, 6782399, 83217542, 7468994, 3997067, 4673859 #### [facility] [address] [place] [address] Albumin/Globulin (S) [Mass conc ratio] 1.4 Normal 1.1-2.2 [facility] Comment on above: Performed By: #### 2 086072, 1056128, 98566958, 0208708, 3446567, 9378088 #### [facility] [address] [place] [address] ALP [Catalytic activity/Vol] 54 Int._Unit/L Normal 21-98 [facility] Comment on above: Performed By: #### 2 374431, 1972395, 93699184, 1294940, 8693038, 1908544 #### [facility] [address] [place] [address] ALT No additional P-5'-P [Catalytic activity/Vol] 24 Int._Unit/L Normal 6-46 [facility] Comment on above: Performed By: #### 2 948895, 9261061, 00013396, 2040285, 6012448, 1610917 #### [facility] [address] [place] [address] AST [Catalytic activity/Vol] 18 Int._Unit/L Normal 5-43 [facility] Comment on above: Performed By: #### 2 385554, 2612176, 55071142, 8352309, 3772107, 6781899 #### [facility] [address] [place] [address] Bilirubin [Mass/Vol] 0.7 mg/dL Normal 0.0-1.1 [facility] Comment on above: Performed By: #### 2 333638, 5164077, 43865038, 1566801, 3367053, 7289622 #### [facility] [address] [place] [address] Bilirubin.direct [Mass/Vol] 0.1 mg/dL Normal 0.1-0.4 [facility] Comment on above: Performed By: #### 2 912261, 2885432, 11987707, 9018488, 7927027, 1411272 #### [facility] [address] [place] [address] Bilirubin.indirect [Mass or moles/Vol] 0.6 mg/dL Normal 0.1-0.9 [facility] Comment on above: Performed By: #### 2 958311, 1254192, 60631302, 6762651, 1269552, 1565325 #### [facility] [address] [place] [address] Globulin (S) [Mass/Vol] 3.1 g/dL Normal 1.4-4.0 [facility] Comment on above: Performed By: #### 2 520158, 3855851, 16316917, 5832281, 3262697, 2712538 #### [facility] [address] [place] [address] Protein [Mass/Vol] 7.3 g/dL Normal 6.0-7.8 [facility] Comment on above: Performed By: #### 2 294010, 2923933, 95161565, 2276840, 9337703, 4037440 #### [facility] [address] [place] [address] Lipase Levelon 03-22-2023 Lipase [Catalytic activity/Vol] 28 U/L Normal 13-58 [facility] Comment on above: Performed By: #### 2 433774, 2209859, 56126127, 5905911, 6113482, 9116042 #### [facility] [address] [place] [address] SEROLOGYOrdered By: Lucina Shaikh on 03-22-2023 HCG.beta subunit (U) [Moles/Vol] Negative Normal [facility] Sero U BetaHcg Qualon 03-22-2023 HCG.beta subunit (U) [Moles/Vol] Negative Normal [facility] Comment on above: Performed By: #### 2 614068, 9469562, 54865573, 2466752, 3256561, 6066026 #### [facility] [address] [place] [address] UA With Cult Reflexon 2022 Bacteria LM Ql (Urine sed) TRACE Normal Trace [facility] Comment on above: Performed By: #### 2 261465, 6877267, 57878612, 4903898, 9171569, 0091590 #### [facility] [address] [place] [address] Bilirubin Ql (U) Negative Normal Negative [facility] Comment on above: Performed By: #### 2 932966, 1945422, 46770793, 3456235, 7512891, 8259297 #### [facility] [address] [place] [address] Clarity (U) SL CLOUDY Abnormal Clear [facility] Comment on above: Performed By: #### 2 781456, 2702051, 02516242, 1027896, 2126130, 7149634 #### [facility] [address] [place] [address] Color (U) YELLOW Normal Yellow [facility] Comment on above: Performed By: #### 2 363512, 9718359, 07569134, 4753842, 3362566, 7863716 #### [facility] [address] [place] [address] Crystals LM Ql (Urine sed) Present Normal [facility] Comment on above: Performed By: #### 2 960608, 8227856, 95308580, 8549737, 1393210, 3044517 #### [facility] [address] [place] [address] Epithelial cells.squamous LM.HPF (Urine sed) [#/Area] 0-2 Normal 0-2 [facility] Comment on above: Performed By: #### 2 965839, 0848038, 05207080, 8111651, 5640733, 1046358 #### [facility] [address] [place] [address] Glucose Test strip (U) [Mass/Vol] Negative Normal Negative [facility] Comment on above: Performed By: #### 2 911422, 8117461, 45096900, 5803911, 2824645, 4115347 #### [facility] [address] [place] [address] Hemoglobin Ql (U) 2+ Abnormal Negative [facility] Comment on above: Performed By: #### 2 596123, 8825509, [id number], [id number], [id number], [id number] #### [facility] [address] [place] [address] Ketones (U) [Mass/Vol] 1+ Abnormal Negative [facility] Comment on above: Performed By: #### 2 [id number], [id number], [id number], [id number], [id number], [id number] #### [facility] [address] [place] [address] [place].plasma/Lithiu m.RBC (Bld) [Mass ratio] 0-3 Normal 0-3 [facility] Comment on above: Performed By: #### 2 [id number], [id number], [id number], [id number], 6780414, [id number] #### [facility] [address] [place] [address] Mucus Ql (Urine sed) TRACE Normal [facility] Comment on above: Performed By: #### 2 502009, [id number], [id number], [id number], 4994085, [id number] #### [facility] [address] [place] [address] Nitrite Ql (U) Negative Normal Negative [facility] Comment on above: Performed By: #### 2 062334, 0851921, [id number], 6392111, 8692498, [id number] #### [facility] [address] [place] [address] pH (U) 5.5 [pH] Invalid Interpretation Code 5.0-9.0 [facility] Comment on above: Performed By: #### 2 195107, 4799408, [id number], 2382336, 4244331, [id number] #### [facility] [address] [place] [address] Protein (U) [Mass/Vol] Negative Normal Negative [facility] Comment on above: Performed By: #### 2 188426, 2886569, [id number], 9016656, 6350908, 4104333 #### [facility] [address] [place], [place] [address] Specific gravity (U) [Rel density] >=1.030 Invalid Interpretation Code 1.005-1.03 0 [facility] Comment on above: Performed By: #### 2 027682, 2521021, 12558598, 3861027, 9625625, 6643245 #### [facility] [address] [place] [address] Type of Urine collection method Clean Catch Normal [facility] Comment on above: Performed By: #### 2 783235, 1484615, 11908534, 0312785, 9277711, 8668508 #### [facility] [address] [place], [place] [address] Urobilinogen Qn (U) 0.2 {Aly'U}/dL Normal 0.0-1.0 [facility] Comment on above: Performed By: #### 2 961437, 0472617, 46797615, 6181560, 6752223, 8673697 #### [facility] [address] [place] [address] WBC Auto Ql (U) 2+ Abnormal Negative [facility] Comment on above: Performed By: #### 2 243148, 2726286, 06089245, 2836796, 6025573, 8236639 #### [facility] [address] [place] [address] WBC LM.HPF (Urine sed) [#/Area] 16-25 Abnormal 0-5 [facility] Comment on above: Performed By: #### 2 527912, 0342438, 92271571, 0568083, 9328488, 8070576 #### [facility] [address] [place] [address] URINALYSISOrdered By: Elizabeth Shaikh on 03-22-2023 Bacteria [...] Interpretation Code Negative [facility] UA Auto SS [place].plasma/Lithiu m.RBC (Bld) [Mass ratio] 0-3 /HPF Normal [...] Desc Clean Catch (03/22/23 8:17 PM) Normal [facility] UA Auto SS Urobilinogen Qn (U) 0.9036509 {Aly'U}/dL Normal 0.0 - 1.0 EU/dL [facility] UA Auto SS WBC Auto Ql (U) 2+ *ABN* (03/22/23 8:17 PM) Invalid Interpretation Code Negative [facility] UA Auto SS WBC LM.HPF (Urine sed) [#/Area] 16-25 /HPF Invalid Interpretation Code 0-5/HPF [facility] UA Auto SS eGFRon 03-22-2023 GFR/1.73 sq M.predicted among non-blacks MDRD (S/P/Bld) [Vol rate/Area] 133 mL/min/1.73 m2 Normal >=59 [facility] Comment on above: Order Comment: Order added by Discern Expert. Result Comment: Mobile Engineer vinh kidney disease could be indicated at eGFR's of less than 60 mL/min/1.73m2. Kidney failure is indicated at less than 15 mL/min/1.73m2. Performed By: #### 2 396032, 1772562, [id number], 0359835, 2851307, 6348429 #### [facility] [address] [place] [address] Alanine aminotransferase [En zymatic activity/volume] in Serum or PlasmaOrdered By: Zurdo Ortega on 02-28-2023 ALT [Catalytic activity/Vol] 21 U/L 7-52 [facility] HIV 1 and HIV-2 antibody ass ay with HIV-1 p24 antigen detectionOrdered By: Zurdo Ortega on 02-28-2023 HIV 1+2 Ab+HIV1 p24 Ag IA Ql Non-Reactive Non Reactive [facility] Comment on above: HIV NegativeHIV-1/HI V-2 antibodies and HIV-1 p24 antigen were NOTdetected. There is no laboratory evidence of HIV infection. Hepatitis B virus surface Ag [Presence] in Serum or Plasma by ImmunoassayOrdered By: Zurdo Ortega on 02-28-2023 HBV surface Ag IA Ql Negative Negative [facility] Comment on above: Performed at: [facility] [address] [id number] Director: Alexis Ashton PhD, Phone: [phone] Hepatitis C virus IgG Ab [Pr esence] in Serum or Plasma by ImmunoassayOrdered By: Zurdo Ortega on 02-28-2023 HCV IgG IA Ql Non-Reactive Non Reactive [facility] No Panel InformationOrdered By: Zurdo Ortega on 02-28-2023 Hepatitis C Interpretation See comment . [facility] Comment on above: Not infected with HC V unless early or acute infection issuspected (which may be delayed in an immunocompromisedindividual), or other evidence exists to indicate HCVinfection. Serum hepatitis B virus surf nikolas antibody detectionOrdered By: Zurdo Ortega on 02-28-2023 HBV surface Ab Ql (S) Reactive . [facility] Comment on above: Non Reactive: Incons istent with immunity, less than 10 mIU/mL Reactive: Consistent with immunity, greater than 9.9 mIU/mL PAP ACOG PANEL 2: 21 to 29on 12-17-2022 . . Normal [facility] Comment on above: Performed By: #### 4 [id number] #### [facility] [address] [place] [address] Dr. Regine Fortune Age Gdln ACOG Testing - [facility] Comment on above: Performed By: #### 4 [id number] #### [facility] [address] [address] [address] Regine Fortune DIAGNOSIS: Comment [facility] Comment on above: Result Comment: NEGA TIVE FOR INTRAEPITHELIAL LESION OR MALIGNANCY. Performed By: #### 4 [id number] #### [facility] [address] [address] [address] Regine Fortune Methodology: Comment [facility] Comment on above: Result Comment: This liquid based ThinPrep(R) pap test was screened with the use of an image guided system. Performed By: #### 4 [id number] #### [facility] [address] [address] [address] Regine Fortune Note: Comment [facility] Comment on above: Result Comment: The Pap smear is a screening test designed to aid in the detection of premalignant and malignant conditions of the uterine cervix. It is not a diagnostic procedure and should not be used as the sole means of detecting cervical cancer. Both false-positive and false-negative reports do occur. . Performed By: #### 4 [id number] #### [facility] [address] [place] [address] Dr. Regine Fortune Performed by: Comment Normal [facility] Comment on above: Result Comment: Amna Hernandes [employer] (ASCP) Performed By: #### 4 [id number] #### [facility] [address] [place] [address] Dr. Regine Fortune Reflex Criteria: Comment [facility] Comment on above: Result Comment: The HPV DNA reflex criteria were not met with this specimen result therefore, no HPV testing was performed. . Performed By: #### 4 [id number] #### [facility] [address] [place] [address] Dr. Regine Fortune Specimen adequacy: Comment Normal [facility] Comment on above: Result Comment: Sati sfactory for evaluation. Endocervical and/or squamous metaplastic cells (endocervical component) are present. Areas of partially obscuring inflammatory exudate are present. Performed By: #### 4 [id number] #### [facility] [address] [place] [address] Dr. Regine Fortune Thyrotropin [Units/volume] i n Serum or PlasmaOrdered By: Brain Wya on 12-10-2022 TSH Qn 2.86 m[IU]/L 0.45-5.33 [facility] Thyroxine (T4) free [Mass/vo lume] in Serum or PlasmaOrdered By: Brain Way on 12-10-2022 Free T4 [Mass/Vol] 0.94 ng/dL 0.61-1.12 [facility] Albumin [Mass/volume] in Ser um or PlasmaOrdered By: Ofelia Hester on 10-16-2022 Albumin [Mass/Vol] 4.1 g/dL 3.2-5.5 [facility] Alkaline phosphatase [Enzyma tic activity/volume] in Serum or PlasmaOrdered By: Ofelia Hester on 10-16-2022 ALP [Catalytic activity/Vol] 56 U/L 32-92 [facility] Amylaseon 10-16-2022 Amylase 43 U/L Normal 28-100 U/L [facility] Other Amylase [Enzymatic activity/ volume] in Serum or PlasmaOrdered By: Ofelia Hester on 10-16-2022 Amylase [Catalytic activity/Vol] 43 U/L 28-100 [facility] Aspartate aminotransferase [ Enzymatic activity/volume] in Serum or PlasmaOrdered By: Ofelia Hester on 10-16-2022 AST [Catalytic activity/Vol] 16 U/L 10-42 [facility] Bilirubin.total [Mass/volume ] in Serum or PlasmaOrdered By: Ofelia Hester on 10-16-2022 Bilirubin [Mass/Vol] 0.6 mg/dL 0.3-1.2 [facility] Calcium [Mass/volume] in Ser um or PlasmaOrdered By: Ofelia Hester on 10-16-2022 Calcium [Mass/Vol] 9.3 mg/dL 8.2-10.2 [facility] Carbon dioxide, total [Moles /volume] in Serum or PlasmaOrdered By: Ofelia Hester on 10-16-2022 CO2 [Moles/Vol] 22.1 mmol/L 22.0-30.0 [facility] Chloride [Moles/volume] in S ghada or PlasmaOrdered By: Ofelia Hester on 10-16-2022 Chloride [Moles/Vol] 105 mmol/L 95-114 [facility] Comprehensive Metabolic Pane samy 10-16-2022 Albumin [Mass/Vol] 4.965427 g/dL Normal 3.2-5.5 g/dL [facility] [facility] Other ALT [Catalytic activity/Vol] 17 U/L Normal 10-60 U/L [facility] Other Bilirubin [Mass/Vol] 0.8344180 mg/dL Normal 0.3- 1.2 mg/dL [facility] Other Calcium [Mass/Vol] 9.7472898 mg/dL Normal 8.2-10 .2 mg/dL [facility] Other CO2 [Moles/Vol] 22.51680870 mmol/L Normal 22.0-3 0.0 mmol/L [facility] Other Creatinine [Mass/Vol] 0.75604435 mg/dL Normal 0. 44-1.03 mg/dL [facility] Other Potassium [Moles/Vol] 4.49951250 mmol/L Normal 3 .5-5.1 mmol/L [facility] Other Protein [Mass/Vol] 6.468172 g/dL Normal 6.1-7.9 g/dL [facility] Other Comprehensive Metabolic Panel > 60 [facility] Other Comprehensive Metabolic Panel 2.5 g/dL [facility] Other Creatinine and Glomerular fi ltration rate.predicted panel (S/P/Bld)Ordered By: Ofelia Hester on 10-16-2022 Creatinine [Mass/Vol] 0.55 mg/dL 0.44-1.03 [facility] Estimated glomerular filtrat ion rate (GFR) non- AmericanOrdered By: Ofelia Hester on 10-16-2022 GFR/1.73 sq M.predicted among non-blacks MDRD (S/P/Bld) [Vol rate/Area] > 60 mL/Min [facility] Globulin Calc (S) [Mass/Vol] Ordered By: Ofelia Hester on 10-16-2022 Globulin (S) [Mass/Vol] 2.5 g/dL [facility] Glucose [Mass/volume] in Ser um or PlasmaOrdered By: Ofelia Hester on 10-16-2022 Glucose [Mass/Vol] 86 mg/dL 70-100 [facility] Comment on above: ADA recommended refe rence rangeRandom Glucose Reference Range is dependent on time and content of last meal. Glucose of more than 200 mg/dL in a nonstressed, ambulatory subject supports the diagnosis of Diabetes Mellitus. Laboratory - Chemistry and C hemistry - challengeOrdered By: Ofelia Hester on 10-16-2022 Lipase [Catalytic activity/Vol] 35.0 U/L 22-51 [facility] Lipaseon 10-16-2022 Lipase [Catalytic activity/Vol] 35.42188 U/L Normal 22-51 U/L [facility] Other No Panel InformationOrdered By: Ofelia Hester on 10-16-2022 Estimated GFR () > 60 mL/Min [facility] Comment on above: GFR estimated refere nce range: According to KDOQI guidelines, <60 ml/min/1.73m2 is sufficient to diagnose a patient with chronic kidney disease. Pharmacy Creatinine Clearance (Chem N/A [facility] Potassium [Moles/volume] in Serum or PlasmaOrdered By: Ofelia Hester on 10-16-2022 Potassium [Moles/Vol] 4.3 mmol/L 3.5-5.1 [facility] Protein [Mass/volume] in Ser um or PlasmaOrdered By: Ofelia Hester on 10-16-2022 Protein [Mass/Vol] 6.6 g/dL 6.1-7.9 [facility] Serum or plasma alanine galaviz otransferase measurement without P-5'-P (enzymatic activiOrdered By: Ofelia Hester on 10-16-2022 ALT No additional P-5'-P [Catalytic activity/Vol] 17 U/L 10-60 [facility] Serum or plasma albumin/glob ulin mass ratioOrdered By: Ofelia Hester on 10-16-2022 Albumin/Globulin [Mass ratio] 1.6 {ratio} [facility] Serum or plasma anion gap de terminationOrdered By: Ofelia Hester on 10-16-2022 Anion gap [Moles/Vol] 13.2 mmol/L 6.0-15.0 [facility] Sodium [Moles/volume] in Ser um or PlasmaOrdered By: Ofelia Hester on 10-16-2022 Sodium [Moles/Vol] 136 mmol/L 136-146 [facility] Urea nitrogen [Mass/volume] in Serum or PlasmaOrdered By: Ofelia Hester on 10-16-2022 Urea nitrogen [Mass/Vol] 11 mg/dL 9- [facility] T4 FREE/FREE THYROXon 2021 Free T4 [Mass/Vol] 1.3 ng/dL 0.9 - 1.7 ng/dL [facility] TSH BLDon 07-14-2022 TSH Qn 2.480 m[IU]/L 0.270 - 4.200 mIU/L [facility] VITAMIN B12 BLOODon 07-14-20 Cobalamin (Vitamin B12) [Mass/Vol] 267 pg/mL 232 - 1,245 pg/mL [facility] Quick Fluon 06-04-2022 FLUAV Ab CF (S) [Titer] Negative [facility] Other FLUBV Ab CF (S) [Titer] Negative [facility] Other Quick Strepon 06-04-2022 S. pyogenes Org specific cx Ql (Throat) Negative [facility] Other Quick Strep [facility] Other SARS-CoV-2 (COVID-19) RNA NA A+probe Ql (Resp)on 06-04-2022 SARS-CoV-2 (COVID-19) RNA LAUREN+probe Ql (Unsp spec) Negative [facility] Other TSH DL <= 0.005 mIU/L QnOrde red By: Darwin Jones on 04-14-2022 TSH Qn 6.39 m[IU]/L 0.45-5.33 [facility] Thyroxine (T4) free [Mass/vo lume] in Serum or PlasmaOrdered By: Darwin Jones on 04-14-2022 Free T4 [Mass/Vol] 0.82 ng/dL 0.61-1.12 [facility] Triiodothyronine (T3) Free [ Mass/volume] in Serum or PlasmaOrdered By: Darwin Jones on 04-14-2022 Free T3 [Mass/Vol] 4.08 pg/mL 2.50-3.90 [facility] Serum or plasma calcium luis urement (mass/volume)Ordered By: Saad Valera on 04-06-2022 Calcium [Mass/Vol] 9.4 mg/dL 8.2-10.2 [facility] Serum or plasma intact parat hyroid hormone measurement (mass/volume)Ordered By: Saad Valera on 04-06-2022 Parathyrin.intact [Mass/Vol] 54.8 pg/mL 12 [facility] CHEMISTRYOrdered By: Lab ROP User on 02-18-2022 Glucose [Mass/Vol] 106 mg/dL High 55 - 99 mg/dL [facility] POC Subsection Comment on above: Result Comment: Aurelia breana Meter POC Device SN [id number] Invalid Interpretation Code [facility] POC Subsection POC User ID [id number] Invalid Interpretation Code [facility] POC Subsection POC Username OBINNA EPPERSON Invalid Interpretation Code [facility] POC Subsection Serum or plasma thyroglobuli n antibody assay (units/volume)Ordered By: Darwin Jones on 02-13-2022 Thyroglobulin Ab Qn 971.2 [IU]/mL 0.0-0.9 [facility] Comment on above: Thyroglobulin Antibo dy measured by [facility] Methodology Performed at: [place] [place] [id number] Fire Protection Designer: Alexis Ashton PhD, Phone: [phone] Serum or plasma thyroperoxid ase antibody assay (units/volume)Ordered By: Darwin Jones on 02-13-2022 TPO Ab Qn 327 [IU]/mL 0-34 [facility] Thyroxine (T4) free [Mass/vo lume] in Serum or PlasmaOrdered By: Darwin Jones on 02-13-2022 Free T4 [Mass/Vol] 0.66 ng/dL 0.61-1.12 [facility] Triiodothyronine (T3) Free [ Mass/volume] in Serum or PlasmaOrdered By: Darwin Jones on 02-13-2022 Free T3 [Mass/Vol] 4.04 pg/mL 2.50-3.90 [facility] Albumin [Mass/volume] in Ser um or PlasmaOrdered By: Addi Ortega on 02-10-2022 Albumin [Mass/Vol] 4.1 g/dL 3.2-5.5 [facility] Basophils Auto (Bld) [#/Vol] Ordered By: Addi Ortega on 02-10-2022 Basophils (Bld) [#/Vol] 0.0 10*3/uL 0.0-0.2 [facility] Basophils/100 WBC Auto (Bld) Ordered By: Addi Ortega on 02-10-2022 Basophils/100 WBC (Bld) 0.4 % . [facility] Blood hemoglobin measurement (mass/volume)Ordered By: Addi Ortega on 02-10-2022 Hemoglobin (Bld) [Mass/Vol] 14.1 g/dL 11.8-15.4 [facility] Blood leukocytes automated c ount (number/volume)Ordered By: Addi Ortega on 02-10-2022 WBC (Bld) [#/Vol] 7.3 10*3/uL 4.5-11.0 [facility] Cholesterol [Mass/volume] in Serum or PlasmaOrdered By: Addi Ortega on 02-10-2022 Cholesterol [Mass/Vol] 195 mg/dL 140-200 [facility] Comment on above: Chol less than 200 m g/dl low risk Chol 201-239 mg/dl borderline risk Chol 240 mg/dl and greater high risk Cholesterol in LDL Calc [Mas s/Vol]Ordered By: Addi Ortega on 02-10-2022 Cholesterol in LDL [Mass/Vol] 113 mg/dL 0-100 [facility] Comment on above: LDL ATP III CLASSIFI CATION LDL less than 100 mg/dL Optimal LDL 100-129 mg/dL Near or above optimal LDL 130-159 mg/dL Borderline high LDL 160-189 mg/dL High LDL greater than 189 mg/dL Very high Cholesterol in VLDL Calc [Ma ss/Vol]Ordered By: Addi Ortega on 02-10-2022 Cholesterol in VLDL [Mass/Vol] 26 mg/dL [facility] Creatinine and Glomerular fi ltration rate.predicted panel (S/P/Bld)Ordered By: Addi Ortega on 02-10-2022 Creatinine [Mass/Vol] 0.71 mg/dL 0.44-1.03 [facility] Eosinophils Auto (Bld) [#/Vo l]Ordered By: Addi Ortega on 02-10-2022 Eosinophils (Bld) [#/Vol] 0.1 10*3/uL 0.0-0.45 [facility] Eosinophils/100 WBC Auto (Bl d)Ordered By: Addi Ortega on 02-10-2022 Eosinophils/100 WBC (Bld) 1.5 % . [facility] Erythrocyte distribution wid th Auto (RBC) [Ratio]Ordered By: Addi Ortega on 02-10-2022 Erythrocyte distribution width (RBC) [Ratio] 14.0 % 11.9-15.3 [facility] Estimated glomerular filtrat ion rate (GFR) non- AmericanOrdered By: Addi Ortega on 02-10-2022 GFR/1.73 sq M.predicted among non-blacks MDRD (S/P/Bld) [Vol rate/Area] > 60 mL/Min [facility] Globulin Calc (S) [Mass/Vol] Ordered By: Addi Ortega on 02-10-2022 Globulin (S) [Mass/Vol] 2.8 g/dL [facility] Hematocrit Auto (Bld) [Volum e fraction]Ordered By: Addi Ortega on 02-10-2022 Hematocrit (Bld) [Volume fraction] 40.3 % 34.0-46.4 [facility] Laboratory - Chemistry and C hemistry - challengeOrdered By: Adid Ortega on 02-10-2022 Glucose [Mass/Vol] 90 mg/dL 70-100 [facility] - Hematology and Cell countsOrdered By: Addi Ortega on 02-10-2022 Nucleated RBC/100 WBC (Bld) [Ratio] 0.1 % 0-0.5 [facility] Lymphocytes Auto (Bld) [#/Vo l]Ordered By: Addi Ortega on 02-10-2022 Lymphocytes (Bld) [#/Vol] 3.3 10*3/uL 1.00-4.8 [facility] Lymphocytes/100 WBC Auto (Bl d)Ordered By: Addi Ortega on 02-10-2022 Lymphocytes/100 WBC (Bld) 45.2 % . [facility] MCH Auto (RBC) [Entitic mass ]Ordered By: Addi Ortega on 02-10-2022 MCH (RBC) [Entitic mass] 33.0 pg 24.7-34.3 [facility] MCHC Auto (RBC) [Mass/Vol]Or dered By: Addi Ortega on 02-10-2022 MCHC (RBC) [Mass/Vol] 34.9 g/dL 32.0-35.0 [facility] MCV Auto (RBC) [Entitic vol] Ordered By: Addi Ortega on 02-10-2022 MCV (RBC) [Entitic vol] 94.6 fL 80-100 [facility] Monocyte %Ordered By: Addi Ortega on 02-10-2022 Monocyte % 134 mg/dL 35-149 [facility] Comment on above: TRIG ATP III CLASSIF ICATION TRIG less than 150 mg/dL Normal TRIG 150-199 mg/dL Borderline high TRIG 200-500 mg/dL High TRIG greater than 500 mg/dL Very high Standard traceable to the Center for Disease Conrtrol and Prevention (CDC) test method. Monocytes Auto (Bld) [#/Vol] Ordered By: Addi Ortega on 02-10-2022 Monocytes (Bld) [#/Vol] 0.5 10*3/uL 0.0-0.8 [facility] Monocytes/100 WBC Auto (Bld) Ordered By: Addi Ortega on 02-10-2022 Monocytes/100 WBC (Bld) 6.3 % . [facility] Neutrophils Auto (Bld) [#/Vo l]Ordered By: Addi Ortega on 02-10-2022 Neutrophils (Bld) [#/Vol] 3.4 10*3/uL 1.8-7.7 [facility] Neutrophils/100 WBC Auto (Bl d)Ordered By: Addi Ortega on 02-10-2022 Neutrophils/100 WBC (Bld) 46.6 % . [facility] No Panel InformationOrdered By: Addi Ortega on 02-10-2022 Estimated GFR () > 60 mL/Min [facility] Comment on above: GFR estimated refere nce range: According to KDOQI guidelines, <60 ml/min/1.73m2 is sufficient to diagnose a patient with chronic kidney disease. Nicotine Metabolite Negative Cutoff=25 [facility] Comment on above: Performed at: [facility] [address] [id number] Fire Protection Designer: Catherine Mendoza MD, Phone: [phone] Pharmacy Creatinine Clearance (Chem N/A [facility] Platelet mean volume Auto (B ld) [Entitic vol]Ordered By: Addi Ortega on 02-10-2022 Platelet mean volume (Bld) [Entitic vol] 8.4 fL 6.3-10.7 [facility] Platelets Auto (Bld) [#/Vol] Ordered By: Addi Ortega on 02-10-2022 Platelets (Bld) [#/Vol] 321 10*3/uL 150-450 [facility] Protein [Mass/volume] in Ser um or PlasmaOrdered By: Addi Ortega on 02-10-2022 Protein [Mass/Vol] 6.9 g/dL 6.1-7.9 [facility] RBC Auto (Bld) [#/Vol]Ordere d By: Addi Ortega on 02-10-2022 RBC (Bld) [#/Vol] 4.26 10*6/uL 3.60-5.00 [facility] Serum or plasma alanine galaviz otransferase measurement without P-5'-P (enzymatic activiOrdered By: Addi Ortega on 02-10-2022 ALT No additional P-5'-P [Catalytic activity/Vol] 26 U/L 10-60 [facility] Serum or plasma albumin/glob ulin mass ratioOrdered By: Addi Ortega on 02-10-2022 Albumin/Globulin [Mass ratio] 1.5 {ratio} [facility] Serum or plasma alkaline hosea sphatase measurement (enzymatic activity/volume)Ordered By: Addi Ortega on 02-10-2022 ALP [Catalytic activity/Vol] 47 U/L 32-92 [facility] Serum or plasma aspartate am inotransferase measurement (enzymatic activity/volume)Ordered By: Addi Ortega on 02-10-2022 AST [Catalytic activity/Vol] 18 U/L 10-42 [facility] Serum or plasma calcium luis urement (mass/volume)Ordered By: Addi Ortega on 02-10-2022 Calcium [Mass/Vol] 9.3 mg/dL 8.2-10.2 [facility] Serum or plasma chloride radha surement (moles/volume)Ordered By: Addi Ortega on 02-10-2022 Chloride [Moles/Vol] 99 mmol/L 95-114 [facility] Serum or plasma high density lipoprotein (HDL) cholesterol measurementOrdered By: Addi Ortega on 02-10-2022 Cholesterol in HDL [Mass/Vol] 55 mg/dL 35-85 [facility] Comment on above: HDL CHOL ATP-III CLA SSIFICATION Cardiovascular Risk HDL > or equal to 60 mg/dL LOW HDL < 40 mg/dL HIGH Serum or plasma potassium me asurement (moles/volume)Ordered By: Addi Ortega on 02-10-2022 Potassium [Moles/Vol] 4.1 mmol/L 3.5-5.1 [facility] Serum or plasma sodium measu rement (moles/volume)Ordered By: Addi Ortega on 02-10-2022 Sodium [Moles/Vol] 135 mmol/L 136-146 [facility] Serum or plasma total biliru bin measurement (mass/volume)Ordered By: Addi Ortega on 02-10-2022 Bilirubin [Mass/Vol] 0.7 mg/dL 0.3-1.2 [facility] Serum or plasma total carbon dioxide measurement (moles/volume)Ordered By: Addi Ortega on 02-10-2022 CO2 [Moles/Vol] 23.3 mmol/L 22.0-30.0 [facility] Serum or plasma total choles terol/high density lipoprotein (HDL) cholesterol mass ratOrdered By: Addi Ortega on 02-10-2022 Cholesterol.total/Cho lesterol in HDL [Mass ratio] 3.5 {ratio} <5.0 [facility] Serum or plasma urea nitroge n measurement (mass/volume)Ordered By: Addi Ortega on 02-10-2022 Urea nitrogen [Mass/Vol] 17 mg/dL 9-23 [facility] TSH DL <= 0.005 mIU/L QnOrde red By: Addi Ortega on 02-10-2022 TSH Qn 57.67 m[IU]/L 0.45-5.33 [facility] No Panel Informationon 09-03 6 {mm/hr} Normal 0-34 -[facility] [address] DO Work Phone: [...] Vital Signs Recorded: 03Sep2021 10:02AMRecorded: 03Sep2021 09:55AM Qsfdsblo007, LUE, Gfyjbyj238, RUE, Sitting Enhpwfldy26, LUE, Xhqpszs61, RUE, Sitting Heart Rate72, Apical Height5 ft 7 in Uuxyng372 lb 9.6 oz BMI Taqeokdjvu14.36 kg/m2 BSA Calculated2.05 Tobacco Useb) No EKG [...] . Sign (more content not included)... Normal [employer] Tobacco Screening.on 022 Tobacco use status [facility] b) No -[facility] 600 DO Work Phone: Vital Signs Date Time Vital Sign Value Performing Clinician Facility 09-19-2024 14:33-0500 Body mass index (BMI) [Ratio] 39.49 kg/m2 Brain Seamus DO Work Phone: [facility] 09-19-2024 14:33-0500 Body weight 114.36 kg Brain Seamus DO Work Phone: [facility] 09-19-2024 14:33-0500 Diastolic blood pressure 70 mm[Hg] Brain Seamus DO Work Phone: [facility] 09-19-2024 14:33-0500 Systolic blood pressure 120 mm[Hg] Brain Seamus DO Work Phone: [facility] 09-07-2024 14:44-0500 Body mass index (BMI) [Ratio] 39.75 kg/m2 Mya MCMILLAN Work Phone: [facility] 09-07-2024 14:44-0500 Body weight 115.12 kg Mya MCMILLAN Work Phone: [facility] 09-07-2024 14:44-0500 Diastolic blood pressure 82 mm[Hg] Mya MCMILLAN Work Phone: [facility] 09-07-2024 14:44-0500 Systolic blood pressure 120 mm[Hg] Mya MCMILLAN Work Phone: [facility] 09-06-2024 14:04-0500 Body temperature 97.88 [degF] Flash Franco [facility] 09-06-2024 14:04-0500 Diastolic blood pressure 77 mm[Hg] Flash Franco [facility] 09-06-2024 14:04-0500 Heart rate 101 /min Flashviral Franco [facility] 09-06-2024 14:04-0500 Respiratory rate 18 /min Flash Franco [facility] 09-06-2024 14:04-0500 SaO2% (BldA) [Mass fraction] 99 % Flash Franco [facility] 09-06-2024 14:04-0500 Systolic blood pressure 122 mm[Hg] Flashviral Franco [facility] 09-05-2024 15:45-0500 Hourly Rounding Rogelio Nath [facility] Comment on above: Result Comment: discharge instructions g darek. monitors off and pt up to dress. 09-05-2024 15:35-0500 Hourly Rounding Rogelio Nath [facility] Comment on above: Result Comment: pt was able to keep spri te and lemon ice down. Wants to go home. 09-05-2024 14:49-0500 Hourly Rounding Rogelio Pham [facility] Comment on above: Result Comment: sprite, lemon ice and ju ice given per pt request. 09-05-2024 07:35-0500 Body temperature 98.24 [degF] Rogelio Nath [facility] 09-05-2024 07:35-0500 Diastolic blood pressure 42 mm[Hg] Rogelio Nath [facility] 09-05-2024 07:35-0500 Heart rate 109 /min Rogelio Nath [facility] 09-05-2024 07:35-0500 Mean blood pressure 65 mm[Hg] Rogelio Nath [facility] 09-05-2024 07:35-0500 Respiratory rate 18 /min Rogelio Nath [facility] 09-05-2024 07:35-0500 Systolic blood pressure 111 mm[Hg] Rogelio Nath [facility] 09-05-2024 07:30-0500 Blood Pressure Location Rogelio Nath [facility] 09-05-2024 04:32-0500 Blood Pressure Location Rogelio Nath [facility] 09-05-2024 04:32-0500 Body temperature 98.24 [degF] Rogelio Nath [facility] 09-05-2024 04:32-0500 Diastolic blood pressure 72 mm[Hg] Rogelio Nath [facility] 09-05-2024 04:32-0500 Heart rate 104 /min Rogelio Nath [facility] 09-05-2024 04:32-0500 Mean blood pressure 90 mm[Hg] Rogelio Nath [facility] 09-05-2024 04:32-0500 Respiratory rate 16 /min Rogelio Nath [facility] 09-05-2024 04:32-0500 SaO2% (BldA) [Mass fraction] 98 % Rogelio Nath [facility] 09-05-2024 04:32-0500 Systolic blood pressure 127 mm[Hg] Rogelio Nath [facility] 09-05-2024 04:00-0500 Diastolic blood pressure 64 mm[Hg] Rogelio Nath [facility] 09-05-2024 04:00-0500 Heart rate 115 /min Rogelio Nath [facility] 09-05-2024 04:00-0500 Mean blood pressure 86 mm[Hg] Rogelio Nath [facility] 09-05-2024 04:00-0500 Systolic blood pressure 129 mm[Hg] Rogelio Nath [facility] 09-05-2024 03:06-0500 Body temperature 97.7 [degF] Rogelio Nath [facility] 09-05-2024 03:06-0500 Heart rate 128 /min Rogelio Nath [facility] 09-05-2024 03:06-0500 Respiratory rate 20 /min Rogelio Nath [facility] 09-05-2024 03:06-0500 SaO2% (BldA) [Mass fraction] 98 % Rogelio Nath [facility] 08-25-2024 12:21-0500 Body height 170.18 cm [facility] [employer] Work Phone: [facility] 08-25-2024 12:21-0500 Body mass index (BMI) [Ratio] 39.6 [facility] [employer] Work Phone: [facility] 08-25-2024 12:21-0500 Body weight 114.75 kg Darwin [place] [employer] Work Phone: [facility] 08-25-2024 12:21-0500 Diastolic blood pressure 84 mm[Hg] [facility] [employer] Work Phone: [facility] 08-25-2024 12:21-0500 Heart rate 108 /min Darwin Roberterwood [employer] Work Phone: [facility] 08-25-2024 12:21-0500 Respiratory rate 18 /min Darwin Easterwood [employer] Work Phone: [facility] 08-25-2024 12:21-0500 SaO2% (BldA) [Mass fraction] 98 % Darwin Robetrerwood [employer] Work Phone: [facility] 08-25-2024 12:21-0500 Systolic blood pressure 132 mm[Hg] Darwin Roberterwood [employer] Work Phone: [facility] 08-23-2024 11:00-0500 Body mass index (BMI) [Ratio] 40.16 kg/m2 Brain Seamus DO Work Phone: [facility] 08-23-2024 11:00-0500 Body weight 116.3 kg Brain Seamus DO Work Phone: [facility] 08-23-2024 11:00-0500 Diastolic blood pressure 78 mm[Hg] Brain Seamus DO Work Phone: [facility] 08-23-2024 11:00-0500 Systolic blood pressure 120 mm[Hg] Brain Seamus DO Work Phone: [facility] 07-11-2024 13:09-0500 Body mass index (BMI) [Ratio] 38.97 kg/m2 Brain Seamus DO Work Phone: [facility] 07-11-2024 13:09-0500 Body weight 112.86 kg Brain Seamus DO Work Phone: [facility] 07-11-2024 13:09-0500 Diastolic blood pressure 76 mm[Hg] Brain Seamus DO Work Phone: [facility] 07-11-2024 13:09-0500 Systolic blood pressure 120 mm[Hg] Brain Seamus DO Work Phone: [facility] 06-28-2024 08:04-0500 Body weight Darwin Jones [employer] Work Phone: [facility] Comment on above: Not provided. 2024 14:13-0500 Diastolic blood pressure 78 mm[Hg] Hayden Reilly MD Work Phone: [facility] 2024 14:13-0500 Heart rate 88 /min Hayden Reilly MD Work Phone: [facility] 2024 14:13-0500 Systolic blood pressure 125 mm[Hg] Hayden Reilly MD Work Phone: [facility] 2024 13:18-0500 Body height 170.2 cm Hayden Reilly MD Work Phone: [facility] 06-12-2024 10:19-0400 Body mass index (BMI) [Ratio] 38.37 kg/m2 Brain Seamus DO Work Phone: [facility] 06-12-2024 10:19-0400 Body weight 111.13 kg Brain Seamus DO Work Phone: [facility] 06-12-2024 10:19-0400 Diastolic blood pressure 80 mm[Hg] Brain Seamus DO Work Phone: [facility] 06-12-2024 10:19-0400 Systolic blood pressure 122 mm[Hg] Brain Seamus DO Work Phone: [facility] 05-11-2024 11:04-0400 Body height 170.18 cm [employer] Darwin Jonesermacy Work Phone: [facility] 05-11-2024 11:04-0400 Body mass index (BMI) [Ratio] 38.2 kg/m2 [employer] Darwin Easterwood Work Phone: [facility] 05-11-2024 11:04-0400 Body temperature 97.8 [degF] [employer] Darwin Jonesermacy Work Phone: [facility] 05-11-2024 11:04-0400 Body weight 110.67 kg [employer] Darwin Jonesermacy Work Phone: [facility] 05-11-2024 11:04-0400 Diastolic blood pressure 74 mm[Hg] [employer] Darwin Robertermacy Work Phone: [facility] 05-11-2024 11:04-0400 Heart rate 90 /min [employer] Darwin Jonesermacy Work Phone: [facility] 05-11-2024 11:04-0400 Respiratory rate 20 /min [employer] Darwin Jonesermacy Work Phone: [facility] 05-11-2024 11:04-0400 SaO2% (BldA) [Mass fraction] 98 % [employer] Darwin Jonesermacy Work Phone: [facility] 05-11-2024 11:04-0400 Systolic blood pressure 126 mm[Hg] [employer] Darwin Jones Work Phone: [facility] 05-10-2024 13:50-0400 Body mass index (BMI) [Ratio] 38.39 kg/m2 Brain Seamus DO Work Phone: [facility] 05-10-2024 13:50-0400 Body weight 111.19 kg Brain Seamus DO Work Phone: [facility] 05-10-2024 13:50-0400 Diastolic blood pressure 76 mm[Hg] Brain Seamus DO Work Phone: [facility] 05-10-2024 13:50-0400 Systolic blood pressure 120 mm[Hg] Brain Seamus DO Work Phone: [facility] 04-20-2024 10:37-0400 Body mass index (BMI) [Ratio] 38.53 kg/m2 Brain Seamus DO Work Phone: [facility] 04-20-2024 10:37-0400 Body weight 111.58 kg Brain Seamus DO Work Phone: [facility] 04-20-2024 10:37-0400 Diastolic blood pressure 76 mm[Hg] Brain Saemus DO Work Phone: [facility] 04-20-2024 10:37-0400 Systolic blood pressure 122 mm[Hg] Brain Seamus DO Work Phone: [facility] 04-07-2024 09:42-0400 Body mass index (BMI) [Ratio] 38.86 kg/m2 [facility] Nurse [facility] 04-07-2024 09:42-0400 Body weight 112.55 kg [facility] Nurse [facility] 04-07-2024 09:42-0400 Diastolic blood pressure 70 mm[Hg] [facility] Nurse [facility] 04-07-2024 09:42-0400 Systolic blood pressure 120 mm[Hg] [facility] Nurse [facility] 03-18-2024 11:50-0400 Diastolic blood pressure 83 mm[Hg] Toan Steine [facility] 03-18-2024 11:50-0400 Heart rate 75 /min Toan Steine [facility] 03-18-2024 11:50-0400 Mean blood pressure 97 mm[Hg] Toan Steine [facility] 03-18-2024 11:50-0400 Respiratory rate 16 /min Toan Steine [facility] 03-18-2024 11:50-0400 SaO2% (BldA) [Mass fraction] 98 % Toan Jaya [facility] 03-18-2024 11:50-0400 Systolic blood pressure 126 mm[Hg] Toan Jaya [facility] 03-18-2024 09:46-0400 Hourly Rounding Toan Steine [facility] 03-18-2024 09:11-0400 Hourly Rounding [place] [facility] 03-18-2024 08:10-0400 Body temperature 98.6 [degF] [place] [facility] 03-18-2024 08:10-0400 Diastolic blood pressure 91 mm[Hg] [place] [facility] 03-18-2024 08:10-0400 Heart rate 98 /min [place] [facility] 03-18-2024 08:10-0400 Hourly Rounding [place] [facility] 03-18-2024 08:10-0400 Respiratory rate 17 /min [place] [facility] 03-18-2024 08:10-0400 SaO2% (BldA) [Mass fraction] 98 % [place] [facility] 03-18-2024 08:10-0400 Systolic blood pressure 135 mm[Hg] [place] [facility] 01-25-2024 08:59-0400 Body height 170.18 cm [employer]Alayna Orosco [email or web address] Work Phone: [facility] 01-25-2024 08:59-0400 Body mass index (BMI) [Ratio] 37.4 kg/m2 [employer]ISIONAl[employer]na Edgara Easterwood Work Phone: [facility] 01-25-2024 08:59-0400 Body temperature 98 [degF] [employer] Darwin [email or web address] Work Phone: [facility] 01-25-2024 08:59-0400 Body weight 108.4 kg [employer]ISIONAlayna Edgara [email or web address] Work Phone: [facility] 01-25-2024 08:59-0400 Diastolic blood pressure 80 mm[Hg] [employer] Darwin Easterwood Work Phone: [facility] 01-25-2024 08:59-0400 Heart rate 98 /min [employer] Darwin Easterwood Work Phone: [facility] 01-25-2024 08:59-0400 Respiratory rate 20 /min [employer] Darwin Easterwood Work Phone: [facility] 01-25-2024 08:59-0400 SaO2% (BldA) [Mass fraction] 99 % [employer] Darwin Easterwood Work Phone: [facility] 01-25-2024 08:59-0400 Systolic blood pressure 122 mm[Hg] [employer] Darwin Easterwood Work Phone: [facility] 12-24-2023 09:56-0400 Body height 170.18 cm [employer] Darwin Easterwood Work Phone: [facility] 12-24-2023 09:56-0400 Body mass index (BMI) [Ratio] 37.7 kg/m2 [employer] Darwin Easterwood Work Phone: [facility] 12-24-2023 09:56-0400 Body temperature 97.6 [degF] [employer] Darwin Easterwood Work Phone: [facility] 12-24-2023 09:56-0400 Body weight 109.31 kg [employer] Darwin Easterwood Work Phone: [facility] 12-24-2023 09:56-0400 Diastolic blood pressure 84 mm[Hg] [employer] Darwin Easterwood Work Phone: [facility] 12-24-2023 09:56-0400 Heart rate 102 /min [employer] Darwin Easterwood Work Phone: [facility] 12-24-2023 09:56-0400 Respiratory rate 20 /min [employer] Darwin Easterwood Work Phone: [facility] 12-24-2023 09:56-0400 SaO2% (BldA) [Mass fraction] 98 % [employer]ISIONAlayna Jones Work Phone: [facility] 12-24-2023 09:56-0400 Systolic blood pressure 126 mm[Hg] [employer]ISIONAlayna Jonesermacy Work Phone: [facility] 11-25-2023 09:01-0400 Body height 170.18 cm [employer]ISIONAlayna Jones Work Phone: [facility] 11-25-2023 09:01-0400 Body mass index (BMI) [Ratio] 37.7 kg/m2 [employer]Al[employer]na Jones Work Phone: [facility] 11-25-2023 09:01-0400 Body temperature 97 [degF] [employer]ISIONAl[employer]na Jones Work Phone: [facility] 11-25-2023 09:01-0400 Body weight 109.31 kg [employer]ISIONAlayna Jones Work Phone: [facility] 11-25-2023 09:01-0400 Diastolic blood pressure 76 mm[Hg] [employer]ISIONAl[employer]na Jones Work Phone: [facility] 11-25-2023 09:01-0400 Heart rate 95 /min [employer]ISIONAlayna Jones Work Phone: [facility] 11-25-2023 09:01-0400 Respiratory rate 20 /min [employer]ISIONAlayna Jonesermacy Work Phone: [facility] 11-25-2023 09:01-0400 SaO2% (BldA) [Mass fraction] 98 % [employer]ISIONAlayna Jonesermacy Work Phone: [facility] 11-25-2023 09:01-0400 Systolic blood pressure 120 mm[Hg] [employer] Darwin Easterwood Work Phone: [facility] 11-18-2023 08:03-0400 Body weight 110.68 kg Ruby Whittington MD Work Phone: [facility] 11-18-2023 08:03-0400 Diastolic blood pressure 92 mm[Hg] Ruby Whittington MD Work Phone: [facility] 11-18-2023 08:03-0400 Heart rate 100 /min Ruby Whittington MD Work Phone: [facility] 11-18-2023 08:03-0400 Systolic blood pressure 132 mm[Hg] Ruby Whittington MD Work Phone: [facility] 10-20-2023 09:05-0500 Body height 170.18 cm [employer]Alayna Orosco [employer] Work Phone: [facility] 10-20-2023 09:05-0500 Body mass index (BMI) [Ratio] 38.3 kg/m2 [employer] Darwin Easterwood Work Phone: [facility] 10-20-2023 09:05-0500 Body temperature 98 [degF] [employer] Darwin Easterwood Work Phone: [facility] 10-20-2023 09:05-0500 Body weight 111.13 kg [employer] Darwin Easterwood Work Phone: [facility] 10-20-2023 09:05-0500 Diastolic blood pressure 78 mm[Hg] [employer] Darwin Easterwood Work Phone: [facility] 10-20-2023 09:05-0500 Heart rate 82 /min [employer] Darwin Easterwood Work Phone: [facility] 10-20-2023 09:05-0500 Respiratory rate 20 /min [employer] Darwin Easterwood Work Phone: [facility] 10-20-2023 09:05-0500 SaO2% (BldA) [Mass fraction] 98 % [employer] Darwin Easterwood Work Phone: [facility] 10-20-2023 09:05-0500 Systolic blood pressure 124 mm[Hg] [employer] Darwin Jones Work Phone: [facility] 09-29-2023 10:41-0500 Blood Pressure Location [place] [facility] 09-29-2023 10:41-0500 Body temperature 98.24 [degF] [place] [facility] 09-29-2023 10:41-0500 Diastolic blood pressure 78 mm[Hg] [place] [facility] 09-29-2023 10:41-0500 Heart rate 95 /min [place] [facility] 09-29-2023 10:41-0500 SaO2% (BldA) [Mass fraction] 97 % [place] [facility] 09-29-2023 10:41-0500 Systolic blood pressure 122 mm[Hg] [place] [facility] 09-21-2023 09:00-0500 Body height 170.18 cm Darwin Jones Other [employer] [facility] [employer] Other 09-21-2023 09:00-0500 Body mass index (BMI) [Ratio] 38.37 kg/m2 Darwin [employer] Other [employer] Other 09-21-2023 09:00-0500 Body temperature 98 [degF] Darwin [employer] Other [employer] Other 09-21-2023 09:00-0500 Body weight 111.13 kg Darwin [employer] Other [employer] Other 09-21-2023 09:00-0500 Diastolic blood pressure 84 mm[Hg] Darwin Easterwood Other [employer] Other 09-21-2023 09:00-0500 Respiratory rate 20 /min Darwin Easterwood Other [employer] Other 09-21-2023 09:00-0500 SaO2% (BldA) [Mass fraction] 98 % Darwin Easterwood Other [employer] Other 09-21-2023 09:00-0500 Systolic blood pressure 126 mm[Hg] Darwin Easterwood Other [employer] Other 08-25-2023 09:30-0500 Body height 170.18 cm Darwin Easterwood Other [facility] 08-25-2023 09:30-0500 Body mass index (BMI) [Ratio] 39.46 kg/m2 Darwin Easterwood Other [employer] Other 08-25-2023 09:30-0500 Body temperature 97.6 [degF] Darwin Easterwood Other [employer] Other 08-25-2023 09:30-0500 Body weight 114.31 kg Darwin Easterwood Other [employer] Other 08-25-2023 09:30-0500 Body weight 114.3 kg [employer] Darwin Easterwood Work Phone: [facility] 08-25-2023 09:30-0500 Diastolic blood pressure 80 mm[Hg] Darwin Easterwood Other [facility] 08-25-2023 09:30-0500 Respiratory rate 20 /min Darwin Easterwood Other [employer] Other 08-25-2023 09:30-0500 SaO2% (BldA) [Mass fraction] 98 % Darwin Easterwood Other [employer] Other 08-25-2023 09:30-0500 Systolic blood pressure 120 mm[Hg] Darwin Easterwood Other [facility] 07-23-2023 09:30-0500 Body height 170.18 cm [employer] Darwin Easterwood Work Phone: [facility] 07-23-2023 09:30-0500 Body weight 116.57 kg [employer] Darwin Easterwood Work Phone: [facility] 07-23-2023 09:30-0500 Diastolic blood pressure 80 mm[Hg] [employer] Darwin Easterwood Work Phone: [facility] 07-23-2023 09:30-0500 Systolic blood pressure 118 mm[Hg] [employer] Darwin Easterwood Work Phone: [facility] 06-23-2023 09:30-0500 Body height 170.18 cm Darwin Easterwood Other [employer] Other 06-23-2023 09:30-0500 Body mass index (BMI) [Ratio] 40.4 kg/m2 Darwin Easterwood Other [employer] Other 06-23-2023 09:30-0500 Body temperature 97.4 [degF] Darwin Easterwood Other [employer] Other 11-08-2023 09:30-0500 Body weight 117.03 kg Darwin Easterwood Other [employer] Other 06-23-2023 09:30-0500 Diastolic blood pressure 78 mm[Hg] Darwin Easterwood Other [employer] Other 06-23-2023 09:30-0500 Respiratory rate 20 /min Darwin Easterwood Other [employer] Other 06-23-2023 09:30-0500 SaO2% (BldA) [Mass fraction] 98 % Darwin Eastermacy Other [employer] Other 06-23-2023 09:30-0500 Systolic blood pressure 120 mm[Hg] Darwin Easterwood Other [employer] Other 06-08-2023 14:00-0400 Body temperature 97.2 [degF] Francy Gan PA-C Work Phone: [facility] 05-26-2023 10:30-0400 Body height 170.18 cm Darwni Robertermacy Other [employer] Other 05-26-2023 10:30-0400 Body mass index (BMI) [Ratio] 41.5 kg/m2 Darwin Easterwood Other [employer] Other 05-26-2023 10:30-0400 Body temperature 98.4 [degF] Darwin Easterwood Other [employer] Other 05-26-2023 10:30-0400 Body weight 120.2 kg Darwin Easterwood Other [employer] Other 05-26-2023 10:30-0400 Diastolic blood pressure 70 mm[Hg] Darwin Easterwood Other [employer] Other 05-26-2023 10:30-0400 Respiratory rate 20 /min Darwin Easterwood Other [employer] Other 05-26-2023 10:30-0400 SaO2% (BldA) [Mass fraction] 97 % Darwin Easterwood Other [employer] Other 05-26-2023 10:30-0400 Systolic blood pressure 112 mm[Hg] Darwin Easterwood Other [employer] Other 04-28-2023 09:15-0400 Body height 170.18 cm Darwin Easterwood Other [employer] Other 04-28-2023 09:15-0400 Body mass index (BMI) [Ratio] 41.34 kg/m2 Darwin Easterwood Other [employer] Other 04-28-2023 09:15-0400 Body temperature 97.2 [degF] Darwin Easterwood Other [employer] Other 04-28-2023 09:15-0400 Body weight 119.75 kg Darwin Easterwood Other [employer] Other 04-28-2023 09:15-0400 Diastolic blood pressure 82 mm[Hg] Darwin Easterwood Other [employer] Other 04-28-2023 09:15-0400 Respiratory rate 20 /min Darwin Easterwood Other [employer] Other 04-28-2023 09:15-0400 SaO2% (BldA) [Mass fraction] 97 % Darwin Easterwood Other [employer] Other 04-28-2023 09:15-0400 Systolic blood pressure 120 mm[Hg] Darwin Easterwood Other [employer] Other 04-16-2023 11:00-0400 Body height 170.18 cm Darwin Easterwood Other [employer] Other 04-16-2023 11:00-0400 Body mass index (BMI) [Ratio] 41.03 kg/m2 Darwin Easterwood Other [employer] Other 04-16-2023 11:00-0400 Body temperature 97.8 [degF] Darwin Easterwood Other [employer] Other 04-16-2023 11:00-0400 Body weight 118.84 kg Darwin Easterwood Other [employer] Other 04-16-2023 11:00-0400 Diastolic blood pressure 80 mm[Hg] Darwin Easterwood Other [employer] Other 04-16-2023 11:00-0400 Respiratory rate 20 /min Darwin Easterwood Other [employer] Other 04-16-2023 11:00-0400 SaO2% (BldA) [Mass fraction] 98 % Darwin Easterwood Other [employer] Other 04-16-2023 11:00-0400 Systolic blood pressure 120 mm[Hg] Darwin Easterwood Other [facility] [employer] Other 03-22-2023 22:51-0400 Diastolic blood pressure 74 mm[Hg] Kaylinn Dokken [facility] 03-22-2023 22:51-0400 Heart rate 80 /min Kaylinn Dokken [facility] 03-22-2023 22:51-0400 Mean blood pressure 92 mm[Hg] Kaylinn Dokken [facility] 03-22-2023 22:51-0400 Respiratory rate 16 /min Kaylinn Dokken [facility] 03-22-2023 22:51-0400 SaO2% (BldA) [Mass fraction] 98 % Kaylinn Dokken [facility] 03-22-2023 22:51-0400 Systolic blood pressure 128 mm[Hg] Kaylinn Dokken [facility] 03-22-2023 21:24-0400 Heart rate 76 /min Kaylinn Dokken [facility] 03-22-2023 21:24-0400 Respiratory rate 16 /min Kaylinn Dokken [facility] 03-22-2023 21:24-0400 SaO2% (BldA) [Mass fraction] 97 % Kaylinn Dokken [facility] 03-22-2023 19:54-0400 Body temperature 98.06 [degF] Kaylinn Dokken [facility] 03-22-2023 19:54-0400 Diastolic blood pressure 89 mm[Hg] Kaylinn Dokken [facility] 03-22-2023 19:54-0400 Heart rate 81 /min Gabriel Ramosen [facility] 03-22-2023 19:54-0400 Respiratory rate 18 /min Annan Dokken [facility] 03-22-2023 19:54-0400 SaO2% (BldA) [Mass fraction] 99 % Gabriel Curtis [facility] 03-22-2023 19:54-0400 Systolic blood pressure 138 mm[Hg] Gabriel Curtis [facility] 03-22-2023 15:18-0400 Body height 170.18 cm [employer] Darwin Easterwood Work Phone: [facility] 03-22-2023 15:18-0400 Body temperature 98.2 [degF] [employer] Darwin Easterwood Work Phone: [facility] 03-22-2023 15:18-0400 Body weight 120.5 kg [employer] Darwin Easterwood Work Phone: [facility] 03-22-2023 15:18-0400 Diastolic blood pressure 74 mm[Hg] [employer] Darwin Easterwood Work Phone: [facility] 03-22-2023 15:18-0400 Heart rate 92 /min [employer] Darwin Easterwood Work Phone: [facility] 03-22-2023 15:18-0400 Respiratory rate 20 /min [employer] Darwin Easterwood Work Phone: [facility] 03-22-2023 15:18-0400 SaO2% (BldA) [Mass fraction] 97 % [employer] Darwin Easterwood Work Phone: [facility] 03-22-2023 15:18-0400 Systolic blood pressure 175 mm[Hg] SHIRLEY Jones Work Phone: [facility] 10-05-2022 09:00-0500 Body height 170.18 cm Ofelia Missler Other [employer] Other 10-05-2022 09:00-0500 Body mass index (BMI) [Ratio] 37.21 kg/m2 Ofelia Missler Other [employer] Other 10-05-2022 09:00-0500 Body weight 107.78 kg Ofelia Missler Other [employer] Other 10-05-2022 09:00-0500 Diastolic blood pressure 45 mm[Hg] Ofelia Missler Other [employer] Other 10-05-2022 09:00-0500 Respiratory rate 18 /min Ofelia Missler Other [employer] Other 10-05-2022 09:00-0500 SaO2% (BldA) [Mass fraction] 97 % Ofelia Missler Other [employer] Other 10-05-2022 09:00-0500 Systolic blood pressure 100 mm[Hg] Ofelia Missler Other [employer] Other 09-02-2022 11:30-0500 Body height 170.18 cm Ofelia Missler Other [employer] Other 09-02-2022 11:30-0500 Body mass index (BMI) [Ratio] 38.04 kg/m2 Ofelia Missler Other [employer] Other 09-02-2022 11:30-0500 Body weight 110.18 kg Ofelia Missler Other [employer] Other 09-02-2022 11:30-0500 Diastolic blood pressure 79 mm[Hg] Ofelia Missler Other [employer] Other 09-02-2022 11:30-0500 Respiratory rate 18 /min Ofelia Missler Other [employer] Other 09-02-2022 11:30-0500 SaO2% (BldA) [Mass fraction] 96 % Ofelia Missler Other [employer] Other 09-02-2022 11:30-0500 Systolic blood pressure 119 mm[Hg] Ofelia Missler Other [employer] Other 08-25-2022 14:00-0500 Body height 170.18 cm Lilly Fitt Other [employer] Other 08-25-2022 14:00-0500 Body mass index (BMI) [Ratio] 38.01 kg/m2 Lilly Fitt Other [employer] Other 08-25-2022 14:00-0500 Body weight 110.09 kg Lilly Fitt Other [employer] Other 07-31-2022 09:45-0500 Body height 170.18 cm Ofelia Missler Other [employer] Other 07-31-2022 09:45-0500 Body mass index (BMI) [Ratio] 38.2 kg/m2 Ofelia Missler Other [employer] Other 07-31-2022 09:45-0500 Body weight 110.63 kg Ofelia Missler Other [employer] Other 07-31-2022 09:45-0500 Diastolic blood pressure 78 mm[Hg] Ofelia Missler Other [employer] Other 07-31-2022 09:45-0500 Respiratory rate 18 /min Ofelia Missler Other [employer] Other 07-31-2022 09:45-0500 SaO2% (BldA) [Mass fraction] 96 % Ofelia Missler Other [employer] Other 07-31-2022 09:45-0500 Systolic blood pressure 135 mm[Hg] Ofelia Missler Other [employer] Other 07-14-2022 08:49-0500 Body height 170.5 cm Ruby Whittington MD Work Phone: [facility] 07-14-2022 08:49-0500 Body weight 111.58 kg Ruby Whittington MD Work Phone: [facility] 07-14-2022 08:49-0500 Diastolic blood pressure 73 mm[Hg] Ruby Whittington MD Work Phone: [facility] 07-14-2022 08:49-0500 Heart rate 92 /min Ruby Whittington MD Work Phone: [facility] 07-14-2022 08:49-0500 Systolic blood pressure 140 mm[Hg] Ruby Whittington MD Work Phone: [facility] 06-17-2022 15:45-0400 Body height 170.18 cm Ofelia Missler Other [employer] Other 06-17-2022 15:45-0400 Body mass index (BMI) [Ratio] 38.99 kg/m2 Ofelia Missler Other [employer] Other 06-17-2022 15:45-0400 Body weight 112.95 kg Ofelia Missler Other [employer] Other 06-17-2022 15:45-0400 Diastolic blood pressure 90 mm[Hg] Ofelia Missler Other [employer] Other 06-17-2022 15:45-0400 Respiratory rate 18 /min Ofelia Missler Other [employer] Other 06-17-2022 15:45-0400 SaO2% (BldA) [Mass fraction] 96 % Ofelia Missler Other [employer] Other 06-17-2022 15:45-0400 Systolic blood pressure 140 mm[Hg] Ofelia Missler Other [employer] Other 06-04-2022 13:00-0400 Body height 170.18 cm Sima Ross Other [employer] Other 06-04-2022 13:00-0400 Body mass index (BMI) [Ratio] 38.37 kg/m2 Sima Ross Other [employer] Other 06-04-2022 13:00-0400 Body temperature 98.6 [degF] Sima Ross Other [employer] Other 06-04-2022 13:00-0400 Body weight 111.13 kg Sima Ross Other [employer] Other 06-04-2022 13:00-0400 Diastolic blood pressure 83 mm[Hg] Sima Ross Other [employer] Other 06-04-2022 13:00-0400 Respiratory rate 18 /min Sima Vandana Other [employer] Other 06-04-2022 13:00-0400 SaO2% (BldA) [Mass fraction] 99 % Sima Vandana Other [employer] Other 06-04-2022 13:00-0400 Systolic blood pressure 124 mm[Hg] Micahlouisa Ross Other [employer] Other 05-27-2022 12:15-0400 Body height 170.18 cm Lilly Luke Other [employer] Other 05-18-2022 09:30-0400 Body height 170.18 cm Ofelia Missler Other [employer] Other 05-18-2022 09:30-0400 Body mass index (BMI) [Ratio] 39.37 kg/m2 Ofelia Missler Other [employer] Other 05-18-2022 09:30-0400 Body temperature 98.1 [degF] Ofelia Missler Other [employer] Other 05-18-2022 09:30-0400 Body weight 114.04 kg Ofelia Missler Other [employer] Other 05-18-2022 09:30-0400 Diastolic blood pressure 80 mm[Hg] Ofelia Missler Other [employer] Other 05-18-2022 09:30-0400 Respiratory rate 18 /min Ofelia Missler Other [employer] Other 05-18-2022 09:30-0400 SaO2% (BldA) [Mass fraction] 99 % Ofelia Missler Other [employer] Other 05-18-2022 09:30-0400 Systolic blood pressure 115 mm[Hg] Ofelia Missler Other [employer] Other 04-17-2022 09:30-0400 Body height 170.18 cm Darwin [employer] Other [employer] Other 04-17-2022 09:30-0400 Body mass index (BMI) [Ratio] 39.15 kg/m2 Darwin [employer] Other [employer] Other 04-17-2022 09:30-0400 Body temperature 96.9 [degF] Darwin Easterwood Other [employer] Other 04-17-2022 09:30-0400 Body weight 113.4 kg Darwin Easterwood Other [employer] Other 04-17-2022 09:30-0400 Diastolic blood pressure 82 mm[Hg] Darwin Easterwood Other [employer] Other 04-17-2022 09:30-0400 Respiratory rate 20 /min Darwin Easterwood Other [employer] Other 04-17-2022 09:30-0400 SaO2% (BldA) [Mass fraction] 99 % Darwin [email or web address] Other [employer] Other 04-17-2022 09:30-0400 Systolic blood pressure 124 mm[Hg] Darwin Jones Other [employer] Other 02-18-2022 21:41-0400 Diastolic blood pressure 88 mm[Hg] Fazal Antoni [facility] 02-18-2022 21:41-0400 Heart rate 84 /min Fazal Antoni [facility] 02-18-2022 21:41-0400 Mean blood pressure 101 mm[Hg] Fazal Antoni [facility] 02-18-2022 21:41-0400 Respiratory rate 17 /min Fazal Antoni [facility] 02-18-2022 21:41-0400 SaO2% (BldA) [Mass fraction] 98 % Darwin Jones Other [employer] Other 02-18-2022 21:41-0400 Systolic blood pressure 126 mm[Hg] Fazal Antoni [facility] 02-18-2022 20:42-0400 gluc 106 mg/dL Fazal Antoni [facility] 02-18-2022 20:42-0400 gluc Fazal Antoni [facility] 02-18-2022 20:33-0400 Body temperature 98.06 [degF] Fazal Antoni [facility] 02-18-2022 20:33-0400 Diastolic blood pressure 99 mm[Hg] Fazal Antoni [facility] 02-18-2022 20:33-0400 Heart rate 99 /min Fazal Antoni [facility] 02-18-2022 20:33-0400 Respiratory rate 18 /min Fazal Antoni [facility] 02-18-2022 20:33-0400 Systolic blood pressure 153 mm[Hg] Fazal Antoni [facility] 02-18-2022 10:00-0400 Body height 170.18 cm Darwin Easterwood Other [facility] [employer] Other 02-18-2022 10:00-0400 Body mass index (BMI) [Ratio] 38.52 kg/m2 Darwin Easterwood Other [employer] Other 02-18-2022 10:00-0400 Body temperature 97 [degF] Darwin Easterwood Other [employer] Other 02-18-2022 10:00-0400 Body weight 111.59 kg Darwin Easterwood Other [employer] Other 02-18-2022 10:00-0400 Diastolic blood pressure 82 mm[Hg] Darwin Easterwood Other [employer] Other 02-18-2022 10:00-0400 Respiratory rate 20 /min Darwin Easterwood Other [employer] Other 02-18-2022 10:00-0400 Systolic blood pressure 118 mm[Hg] Darwin Easterwood Other [employer] Other 02-11-2022 12:00-0400 Body height 170.18 cm Darwin [employer] Other [employer] Other 02-11-2022 12:00-0400 Body mass index (BMI) [Ratio] 37.9 kg/m2 Darwin Easterwood Other [employer] Other 02-11-2022 12:00-0400 Body temperature 97.2 [degF] Darwin Easterwood Other [employer] Other 02-11-2022 12:00-0400 Body weight 109.77 kg Darwincary Jonesermacy Other [employer] Other 02-11-2022 12:00-0400 Diastolic blood pressure 88 mm[Hg] Darwin Easterwood Other [employer] Other 02-11-2022 12:00-0400 Respiratory rate 20 /min Darwin Easterwood Other [employer] Other 02-11-2022 12:00-0400 SaO2% (BldA) [Mass fraction] 98 % Darwin Roberterwood Other [employer] Other 02-11-2022 12:00-0400 Systolic blood pressure 126 mm[Hg] Darwin Easterwood Other [employer] Other 09-03-2021 10:02-0500 Diastolic blood pressure 86 mm[Hg] Unknown Unknown [employer] 600 DO Work Phone: 09-03-2021 10:02-0500 Systolic blood pressure 110 mm[Hg] Unknown Unknown [employer] 600 DO Work Phone: 09-03-2021 09:55-0500 Body height 170.18 cm Unknown Unknown [employer] 600 DO Work Phone: 09-03-2021 09:55-0500 Body mass index (BMI) [Ratio] 32.36 kg/m2 Unknown Unknown [facility] 600 DO Work Phone: 09-03-2021 09:55-0500 Body surface area Derived from formula 2.05 m2 Unknown Unknown [facility] 600 DO Work Phone: 09-03-2021 09:55-0500 Body weight 93.71 kg Unknown Unknown [facility] 600 DO Work Phone: 09-03-2021 09:55-0500 Diastolic blood pressure 84 mm[Hg] Unknown Unknown [facility] 600 DO Work Phone: 09-03-2021 09:55-0500 Heart rate 72 /min Unknown Unknown [facility] 600 DO Work Phone: 09-03-2021 09:55-0500 Systolic blood pressure 122 mm[Hg] Unknown Unknown [facility] 600 DO Work Phone: Encounters Encounter Date Encounter Type Care Provider Facility Start: 09-29-2024 End: 09-29-2024 Clinisync Result Encounter Brain Seamus DO Work Phone: [facility] External Department Unsolicited Start: 09-29-2024 End: 09-29-2024 Clinisync Result Encounter Brain Seamus DO Work Phone: [facility] External [facility] Unsolicited Start: 09-22-2024 End: 09-22-2024 Clinisync Result Encounter Brain Seamus DO Work Phone: [facility] External [facility] Unsolicited Start: 09-22-2024 End: 09-22-2024 Clinisync Result Encounter Brain Seamus DO Work Phone: [facility] External [facility] Unsolicited Start: 09-21-2024 End: 09-21-2024 Patient encounter procedure Darwin Jones [employer] Work Phone: [facility] [place] Work Phone: Start: 09-21-2024 End: 09-21-2024 ambulatory Darwin Jaclyn Jones [employer] Work Phone: [facility] Work Phone: Start: 09-19-2024 End: [...] End: 09-14-2024 Patient encounter procedure Darwin Jones [employer] Work Phone: [facility]Electro[facility]ostics Work Phone: Start: 09-14-2024 End: 09-14-2024 ambulatory Darwin Anaya Yasir [employer] Work Phone: [facility] Work Phone: Start: 09-11-2024 End: [...] / Non-visit Darwin corral APRN Work Phone: [facility] Work Phone: Start: 09-06-2024 End: 09-06-2024 Emergency department patient visit Flash Franco [facility] Start: 09-05-2024 ambulatory Rogelio Nath Facility :[facility] Start: 09-05-2024 End: 09-05-2024 ambulatory Rogelio Nath Facility:[facility] Start: 09-05-2024 Emergency department patient visit DO Gabriel Curtis Facility:[facility] Start: 09-05-2024 End: 09-05-2024 Observation Rogelio Nath [facility] Start: 08-25-2024 End: 08-25-2024 Clinisync Result Encounter Brain Seamus DO Work Phone: [facility] External [facility] Unsolicited Start: 08-25-2024 End: 08-25-2024 Clinisync Result Encounter Brain Seamus DO Work Phone: [facility] External [facility] Unsolicited Start: 08-25-2024 End: 08-25-2024 ambulatory Darwin Jones [employer] Work Phone: [facility] Work Phone: Start: 08-25-2024 End: 08-25-2024 Patient encounter procedure Darwin Jones [employer] Work Phone: [facility] Work Phone: Start: 08-23-2024 End: [...] Not Available Start: 08-02-2024 End: 08-02-2024 ambulatory [facility] Start: 07-31-2024 End: 07-31-2024 Patient encounter procedure Darwin Jones [employer] Work Phone: [facility] [place] Work Phone: Start: 07-31-2024 End: 07-31-2024 Orders Only Hayden Reilly MD Work Phone: [facility] - [facility] Comment on above: History of pericardi tis (Primary Dx); Mild concentric left ventricular hypertrophy (LVH); 25 weeks gestation of Start: 07-27-2024 End: 07-27-2024 ambulatory NO PCP NO PCP [facility] Start: 07-11-2024 End: 07-11-2024 flow sheet Brain Seamus DO Work Phone: [facility] Comment on above: 22 weeks gestation o f ; Second trimester ; Nausea and vomiting during ; Diabetes mellitus screening Start: 06-28-2024 End: 06-28-2024 Patient encounter procedure Darwin Jones [employer] Work Phone: [facility] [place] Work Phone: Start: 06-28-2024 End: 06-28-2024 ambulatory Darwin Jones [employer] Work Phone: [facility] Work Phone: Start: 2024 End: 2024 Office consultation new/estab patient 60 min Hayden Reilly MD Work Phone: [facility] [place] Comment on above: 20 weeks gestation o f (Primary Dx); Tiffani's disease; 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; Hx of preeclampsia, prior , currently ; Elevated BP without diagnosis of hypertension; History of pericarditis; with history of section, antepartum; History of macrosomia in in prior , currently ; Obesity affecting , antepartum, unspecified obesity type; Depression affecting Start: 2024 End: 2024 ambulatory [facility] Start: 06-22-2024 End: 06-22-2024 Patient encounter procedure Darwin Jones [employer] Work Phone: [facility] [place] Work Phone: Start: 06-22-2024 End: 06-22-2024 ambulatory Darwin Jones [employer] Work Phone: [facility] Work Phone: Start: 06-21-2024 End: 06-21-2024 Chart abstracting Hayden Reilly MD Work Phone: [facility] Start: 06-12-2024 End: 06-12-2024 Bamboo flowsheet [...] 05-24-2024 End: 05-24-2024 Patient encounter procedure SHIRLEY Laramacy Work Phone: [facility] [place] Work Phone: Start: 05-24-2024 End: 05-24-2024 [facility]: [facility] Work Phone: Start: 05-11-2024 End: 05-11-2024 [facility]ulatory [facility] Work Phone: [facility] Work Phone: Start: 05-11-2024 End: 05-11-2024 Encounter for general adult medical examination without abnormal findings SHIRLEY Laraeast [place] Work Phone: [facility] Start: 05-11-2024 End: 05-11-2024 Patient encounter procedure [employer] DIVISIONAlayna Orosco Yasir Work Phone: [facility] [place] Work Phone: Start: 05-10-2024 End: 05-10-2024 Bamboo [...] yrs Brain Seamus DO Work Phone: [facility] Comment on above: First trimester preg [...] 04-06-2024 Departed Referred SHIRLEY Jones Work Phone: [facility] Start: 04-06-2024 End: 04-06-2024 ambulatory [employer]na Jones Work Phone: [facility] Work Phone: Start: 03-21-2024 End: 03-21-2024 ambulatory BRAIN SEAMUS Not Available Start: 03-18-2024 End: 03-18-2024 Emergency department patient visit [place] [facility] Start: 02-24-2024 End: 02-24-2024 Patient encounter procedure SHIRLEY Jones Work Phone: [facility] [place] Work Phone: Start: 02-24-2024 End: 02-24-2024 ambulatory SHIRLEY Jonesermacy Work Phone: [facility] Work Phone: Start: 01-25-2024 End: 01-25-2024 ambulatory [employer]Alayna Jonesermacy Work Phone: [facility] Work Phone: Start: 01-25-2024 End: 01-25-2024 Patient encounter procedure SHIRLEY Jones Work Phone: [facility] Family [facility] Work Phone: Start: 01-24-2024 End: 01-24-2024 Patient encounter procedure [employer]ISIONAlayna Jonesermacy Work Phone: [facility] [place] Work Phone: Start: 01-24-2024 End: 01-24-2024 ambulatory [employer] Darwin J Easterwood Work Phone: [facility] Work Phone: Start: 12-27-2023 End: 12-27-2023 Patient encounter procedure [employer] Darwin Easterwood Work Phone: [facility] [place] Work Phone: Start: 12-27-2023 End: 12-27-2023 ambulatory [employer] Darwin J Easterwood Work Phone: [facility] Work Phone: Start: 12-24-2023 End: 12-24-2023 ambulatory [employer] Darwin J Easterwood Work Phone: [facility] Work Phone: Start: 12-24-2023 End: 12-24-2023 Patient encounter procedure [employer] Darwin Roberterwood Work Phone: [facility] Work Phone: Start: 11-30-2023 End: 11-30-2023 Patient encounter procedure [employer] Darwin Roberterwood Work Phone: [facility] [place] Work Phone: Start: 11-30-2023 End: 11-30-2023 ambulatory [employer] Darwin J Easterwood Work Phone: [facility] Work Phone: Start: 11-25-2023 End: 11-25-2023 ambulatory [employer] Darwin J Easterwood Work Phone: [facility] Work Phone: Start: 11-25-2023 End: 11-25-2023 Patient encounter procedure [employer] Darwin Easterwood Work Phone: [facility] [place] Work Phone: Start: 11-18-2023 End: 11-19-2023 ambulatory RUBY WHITTINGTON Facility:[facility] Start: 11-18-2023 End: 11-18-2023 Patient encounter procedure Ruby Whittington MD Work Phone: Endocrinology Comment on above: 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); Class 2 obesity; Irregular menstruation, unspecified; Female infertility; Calculus of kidney Start: 11-01-2023 End: 11-01-2023 Patient encounter procedure [employer] Darwin Jonesermacy Work Phone: [facility] [place] Work Phone: Start: 11-01-2023 End: 11-01-2023 ambulatory [employer] Darwin Anaya [employer] Work Phone: [facility] [employer] Work Phone: Start: 10-20-2023 End: 10-20-2023 Patient encounter procedure [employer]PER[employer] DIVISIONAlayna Jonesermacy Work Phone: [facility] [place] Work Phone: Start: 10-01-2023 End: 10-01-2023 Patient encounter procedure [employer]PER[employer] DIVISIONAlayna Joneserwood Work Phone: [facility] [place] Work Phone: Start: 10-01-2023 End: 10-01-2023 ambulatory [employer] Darwin Jaclyn Easterwood Work Phone: [facility] Work Phone: Start: 09-29-2023 End: 09-29-2023 ambulatory [place]one Rock Facility:[facility] Start: 09-29-2023 End: 09-29-2023 Patient encounter procedure [place] [facility] Start: 09-21-2023 End: 09-21-2023 ambulatory Darwin Robertermacy Other [employer] Other Start: 09-21-2023 Office outpatient vi sit 15 minutes Darwin Roberterwood [facility] Start: 08-30-2023 Patient encounter procedure [employer] Darwin Jonesermacy Work Phone: [facility] [facility] Start: 08-25-2023 End: 08-25-2023 ambulatory Darwin Robertermacy Other [employer] Other Start: 08-25-2023 Follow-up encounter Darwin Joneserwood [facility] Start: 08-25-2023 End: 08-25-2023 Patient encounter procedure [employer] Darwin Jones Work Phone: [facility] Work Phone: Start: 07-23-2023 End: 07-23-2023 Patient encounter procedure [employer] Darwin Jones Work Phone: [facility] Work Phone: Start: 07-16-2023 Telephone encounter Ruby sneed MD Work Phone: Endocrinology Comment on above: Appointment Start: 06-23-2023 End: 06-23-2023 ambulatory Darwin Yasir Other [employer] Other Start: 06-23-2023 Office outpatient vi sit 15 minutes Darwin Roberterwood [facility] Start: 06-08-2023 End: 06-08-2023 ambulatory FRANCY GAN Facility:[facility] Start: 06-08-2023 End: 06-08-2023 Patient encounter procedure Francy Gan PA-C Work Phone: Otolaryngology Comment on above: Dysphagia, unspecifi ed type (Primary Dx); LPRD (laryngopharyngeal reflux disease) Start: 05-26-2023 End: 05-26-2023 ambulatory Darwin Roberterwood Other [employer] Other Start: 05-26-2023 Office outpatient vi sit 25 minutes Darwin Joneserwood [facility] Start: 05-06-2023 End: 05-06-2023 ambulatory [employer] Darwin Jonesermacy Work Phone: [facility] Work Phone: Start: 05-06-2023 End: 05-06-2023 Patient encounter procedure [employer] Darwin Jones Work Phone: [facility]-Ultrasound [facility] Work Phone: Start: 04-28-2023 End: 04-28-2023 ambulatory Darwin Jonesermacy Other [employer] Other Start: 04-28-2023 Office outpatient vi sit [facility] Start: 04-16-2023 End: 04-16-2023 ambulatory Darwin Jones Other [employer] Other Start: 04-16-2023 Encounter for genera l adult medical examination without abnormal findings [facility] Start: 04-16-2023 Periodic preventive med est patient 18-39 yrs [place] Start: 04-08-2023 End: 04-08-2023 ambulatory [employer] Darwin Jonesermacy Work Phone: [facility] Work Phone: Start: 04-08-2023 End: 04-08-2023 Departed Referred [employer] Darwin Joneserwood Work Phone: [facility]-Employee Benefit Screening Start: 03-22-2023 End: 03-22-2023 Emergency department patient visit Gabriel Curtis [facility] Start: 03-22-2023 End: 03-22-2023 Emergency department patient visit SHIRLEY Jones Work Phone: [facility]-Emergency Room Work Phone: Start: 02-28-2023 End: 02-28-2023 Departed Referred SHIRLEY Jones Work Phone: [facility]-Employee Benefit Screening Start: 02-28-2023 End: 02-28-2023 ambulatory SHIRLEY Jones Work Phone: [facility] Work Phone: Start: 02-28-2023 End: 02-28-2023 Patient encounter procedure SHIRLEY Jones Work Phone: [facility]-[employer] [address] Work Phone: Start: 12-10-2022 End: 12-10-2022 ambulatory SHIRLEY Jones Work Phone: [facility] Work Phone: Start: 12-10-2022 End: 12-10-2022 Patient encounter procedure SHIRLEY Jones Work Phone: [facility]-Lab [facility] Work Phone: Start: 12-09-2022 End: 12-09-[address] NONE LISTED REQUEST Facility: Start: 12-08-2022 End: 12-08-2022 ambulatory Ofelia cassidy Other [employer] Other Start: 12-08-2022 [facility]en [facility] Start: 10-22-2022 End: 10-22-2022 ambulatory Lilly Luke Other [employer] Other Start: 10-22-2022 Telephone encounter Lilly Luke [facility] Start: 10-16-2022 End: 10-16-2022 ambulatory SHIRLEY Edgara Jaclyn Yasir Work Phone: [facility] Work Phone: Start: 10-16-2022 End: 10-16-2022 Patient encounter procedure SUPERINTENDENT OPERATIONS DIVISIONAlayna Orosco Yasir Work Phone: [facility]-Lab [facility] Work Phone: Start: 10-15-2022 End: 10-15-2022 ambulatory Ofelia Missler Other [employer] Other Start: 10-15-2022 Telephone encounter Ofelia [facility] Start: 10-05-2022 Registered Recurring SHIRLEY Orosco Yasir Work Phone: [facility]-Weight Management Work Phone: Start: 10-05-2022 [facility] f/u [facility] Start: 10-05-2022 End: 10-05-2022 ambulatory Ofeliaher Couchler Other [employer] Other Start: 09-28-2022 ambulatory Ruby Whittington MD Work Phone: Endocrinology Comment on above: Synthroid Start: 09-02-2022 [facility] f[facility]u [facility] Start: 09-02-2022 End: 09-02-2022 ambulatory Ofelia Missler Other [employer] Other Start: 08-25-2022 ([facility] WM[facility]) PHUONG joy Provider Lilly Luke [facility] Start: 08-25-2022 End: 08-25-2022 ambulatory Lilly Luke Other [employer] Other Start: 07-31-2022 ([facility]/U) Weight Management f/u [facility]elia [facility] Start: 07-31-2022 End: 07-31-2022 ambulatory Ofelia Hester Other [employer] Other Start: 07-20-2022 End: 07-20-2022 ambulatory Lilly Fitt Other [employer] Other Start: 07-20-2022 Telephone encounter Lilly Luke [facility] Start: 07-14-2022 End: 07-14-2022 Patient encounter procedure Ruby Whittington MD Work Phone: Endocrinology Comment on above: 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); Class 2 obesity Start: 07-08-2022 End: 07-08-2022 ambulatory Ofelia Hester Other [employer] Other Start: 07-08-2022 Telephone encounter Ofelia Hester [facility] Start: 06-17-2022 ([facility] Weight Management f/u [facility] Start: 06-17-2022 End: 06-17-2022 ambulatory Ofelia Hester Other [employer] Other Start: 06-04-2022 End: 06-04-2022 ambulatory Sima Ross Other [employer] Other Start: 06-04-2022 Office outpatient vi sit 15 minutes Sima Ross [facility] Ur[facility] Care [facility] Start: 05-27-2022 End: 05-27-2022 ambulatory Lilly Fitt Other [employer] Other Start: 05-27-2022 IBT FOR OBESITY GROU P 2-10 30M Lilly Fitt [facility] Start: 05-25-2022 End: 05-25-2022 ambulatory Darwin Easterwood Other [employer] Other Start: 05-25-2022 Telephone encounter Geoffrey murphy MD Work Phone: Endocrinology Comment on above: Appointment (LVM for patient that appt on 05/[address] George has been rescheduled to 07/08 at [facility] with Dr. Robertson. sending mail reminder as well. ) Start: 05-19-2022 End: 05-19-2022 ambulatory Ofelia Hester Other [employer] Other Start: 05-19-2022 Telephone encounter Ofelia Hester [facility] Start: 05-18-2022 End: 05-18-2022 ambulatory Ofelia Hester Other [employer] Other Start: 05-18-2022 Nutrition therapy [facility] Start: 04-21-2022 End: 04-21-2022 ambulatory Darwin Easterwood Other [employer] Other Start: 04-21-2022 Telephone encounter Darwin Easterwood [facility] Start: 04-17-2022 End: 04-17-2022 ambulatory Darwin Easterwood Other [employer] Other Start: 04-17-2022 Office outpatient vi sit 25 minutes Darwin Easterwood [facility] Start: 04-15-2022 End: 04-15-2022 ambulatory Darwin Easterwood Other [employer] Other Start: 04-15-2022 Telephone encounter Darwin Easterwood [facility] Start: 04-14-2022 End: 04-14-2022 Patient encounter procedure PHYSICIAN [facility] Start: 04-10-2022 End: 04-10-2022 ambulatory Lilly Luke Other [employer] Other Start: 04-10-2022 Telephone encounter Lilly Luke [facility] Start: 04-06-2022 End: 04-06-2022 Patient encounter procedure PHYSICIAN NO [facility]-Lab [facility] Start: 02-24-2022 End: 02-24-2022 ambulatory Darwin Easterwood Other [employer] Other Start: 02-24-2022 Telephone encounter Darwin Easterwood [facility] Start: 02-18-2022 End: 02-18-2022 Emergency department patient visit Fazal Corrales [facility] Start: 02-18-2022 End: 02-18-2022 ambulatory Darwin Easterwood Other [employer] Other Start: 02-18-2022 Office outpatient vi sit 25 minutes Darwin Easterwood [facility] Start: 02-18-2022 [facility] Start: 02-13-2022 End: 02-13-2022 Patient encounter procedure PHYSICIAN NO [facility]-Ultrasound [facility] Start: 02-11-2022 End: 02-11-2022 ambulatory Darwin Easterwood Other [employer] Other Start: 02-11-2022 Office outpatient ne w 45 minutes [facility] Start: 02-10-2022 End: 02-10-2022 Departed Referred PHYSICIAN NO [facility]-Employee Benefit Screening Start: 09-04-2021 Chart Update Unknown Unknown [facility] 250 DO Work Phone: Start: 09-03-2021 Office outpatient ne w 45 minutes Unknown Unknown -[facility] 600 DO Work Phone: Procedures Date Procedure Procedure Detail Performing Clinician Start: 09-29-2024 US OB BPP W NON-STRESS Brain Seamus DO Work Phone: Start: 09-22-2024 OB BPP W NON-STRESS Brain Seamus DO Work Phone: Start: 09-19-2024 Urnls dip stick/tabl et rgnt non-auto w/o micrscp Brain Seamus DO Work Phone: Start: 09-15-2024 OB BPP W NON-STRESS Brain Seamus DO [...] ultrasoun d of gravid uterus Darwin Jonestodd PLUMMERN Work Phone: Start: 06-21-2024 H/O: section History of C-s ection Hayden Reilly MD Work Phone: Start: 06-12-2024 Urnls dip stick/tabl et rgnt non-auto w/o micrscp Brain Seamus DO Work Phone: Start: 05-10-2024 Urnls dip stick/tabl et rgnt non-auto w/o micrscp Brain Chiango DO Work Phone: Start: 04-20-2024 URETHRITIS/DISCHARGE PLUS VAGINITIS (HTRX) Brain Chiango DO Work Phone: Start: 04-20-2024 Urnls dip stick/tabl et rgnt non-auto w/o micrscp Brain Chiango DO Work Phone: Start: 04-20-2024 IGP,APTIMA HPV,AGE [...] for malignant neoplasm of cervix Pap Smear [facility] Start: 03-23-2026 DTaP,Tdap and Td Vaccines (7 - Td or Tdap) DTaP,Tdap and Td Vaccines (7 - Td or Tdap) [facility] Start: 03-23-2026 Urine microalbumin profile [facility] Start: 2025 Tobacco Screening Tobacco Screening [facility] Start: 10-05-2024 End: 10-05-2024 Patient encounter procedure 10/05/2024 2:20 PM EST Routine [facility] [address] [place] [id number] Mya Finch PA [address] [place] [address] [facility] Start: 09-19-2024 End: 09-19-2024 [...] 08/31/2024 (Approximate), Expi res: 07/31/2025 Start: 08-25-2024 [facility] Start: 08-23-2024 End: 08-23-2024 Patient encounter procedure 08/23/2024 11:00 AM EST Routine [facility] [address] [place] [id number] DO [address] [place], [place] [id number] Arrived [facility] Comment on above: Arrived Start: 08-02-2024 End: 08-02-2024 Telemedicine consultation with patient 08/02/2024 9:00 AM EST Telemedicine [facility] [address] [place] [id number] Darcy Enriquez MD [address] [place] [address] [facility] Start: 07-27-2024 End: 07-27-2024 Patient encounter procedure 07/27/2024 11:00 AM EST Appointment [facility] [address] [place] [address] [facility] Start: 07-21-2024 End: 07-21-2024 Patient encounter procedure 07/21/2024 10:00 AM EST Appointment [facility] [address] [place] [address] [facility] Start: 07-11-2024 End: 07-11-2025 CBC panel - Blood by Automated count CBC Lab Routine 22 weeks gestation of Second trimester Expected: 07/11/2024 (Approximate), Expires: 07/11/2025 [facility] Work Phone: Comment on above: Expected: 07/11/2024 (Approximate), Expi res: 07/11/2025 Start: 07-11-2024 End: 07-11-2025 Measurement of glucose 1 hour after glucose challenge for glucose tolerance test Glucose tolerance, 1 hour Lab Routine 22 weeks gestation of Second trimester Diabetes mellitus screening Expected: 07/11/2024 (Approximate), Expires: 07/11/2025 [facility] Comment on above: Expected: 07/11/2024 (Approximate), Expi res: 07/11/2025 Start: 07-11-2024 End: 07-11-2024 Patient encounter procedure 07/11/2024 10:10 AM EST Routine [facility] [address] [place] [phone] [address] DO [address] [place] [address] [facility] Start: 06-28-2024 [facility] Start: 2024 End: 2025 Echo complete W/O contrast Echo complete W/O contrast Echocardiography Routine 20 weeks gestation of History of pericarditis Expected: 2024, Expires: 2025 [facility] Work Phone: Comment on above: Expected: 2024, Expires: Start: 2024 End: 2024 Patient encounter procedure [facility] Start: 06-12-2024 End: 10-13-2024 Alpha fetoprotein, maternal [...] Routine [facility] [address] [place] [id number] [address] DO [address] [place] [address] Arrived [facility] Comment on above: Arrived Start: 06-07-2024 End: 06-07-2024 Patient encounter procedure 06/07/2024 10:50 AM EDT Routine [facility] [address] [place] [address], DO [address] [place] [address] [facility] Start: 05-10-2024 End: 05-10-2024 Patient encounter procedure [facility] Comment on above: Arrived Start: 04-20-2024 End: 04-20-[address] [facility] Comment on above: Arrived Start: 04-16-2024 COVID-19 Vaccine () COVID-19 Vaccine () [facility] Start: 04-16-2024 Influenza vaccination [facility] Start: 04-07-2024 End: 04-07-2025 ABO/Rh ABO/Rh Lab Routine Missed menses Expected: 04/07/2024 (Approximate), Expires: 04/07/2025 [facility] Comment on above: Expected: 04/07/2024 (Approximate), Expi res: 04/07/2025 Start: 04-07-2024 End: 04-07-2025 Blood type and Indirect antibody screen panel - Blood Type and screen Lab Routine Missed menses Expected: 04/07/2024 (Approximate), Expires: 04/07/2025 [facility] Work Phone: Comment on above: Expected: 04/07/2024 (Approximate), Expi res: 04/07/2025 Start: 08-16-2023 Behavioral Health Screening Behavioral Health Screening [facility] Start: 05-06-2023 US scan of thyroid US thyroid [facility] Start: 04-16-2023 Covid-19 Vaccine ( season) Covid-19 Vaccine () [facility] Start: 04-16-2023 Influenza vaccination [facility] Start: 04-08-2023 [facility] Start: 08-16-2022 DEPRESSION ASSESSMENT DEPRESSION ASSESSMENT [facility] Start: 04-16-2022 Influenza vaccination INFLUENZA (#1) [facility] Start: 08-16-2021 DEPRESSION ASSESSMENT DEPRESSION ASSESSMENT [facility] Start: 01-10-2021 COVID-19 VACCINE (3 - Booster) COVID-19 VACCINE (3 - Booster) [facility] Start: 2017 PAP TESTING PAP TESTING [facility] Start: 2017 Screening for malignant neoplasm of cervix [facility] Start: 2015 DTaP,Tdap and Td Vaccines (1 - Tdap) DTaP,Tdap and Td Vaccines (1 - Tdap) [facility] Start: 2015 Urine microalbumin profile DTAP,TDAP,TD (1 - Tdap) [facility] Start: 2014 Adult BMI Screening Adult BMI Screening [facility] Start: 2014 ANNUAL PCP TEAM CHRONIC DISEASE VISIT ANNUAL PCP TEAM CHRONIC DISEASE VISIT [facility] Start: 2014 HEPATITIS C SCREENING HEPATITIS C SCREENING [facility] Start: 2014 Hepatitis C screening Hepatitis C Screening [facility] Start: 2014 HIV SCREENING HIV SCREENING [facility] Start: 2014 HIV screening HIV Screening [facility] Start: 2010 PEDS TO ADULT TRANSITION ANNUAL ASSESSMENT PEDS TO ADULT TRANSITION ANNUAL ASSESSMENT [facility] Start: 2008 Depression Screening Depression Screening [facility] Start: 2008 PEDS TO ADULT TRANSITION INITIAL DISCUSSION PEDS TO ADULT TRANSITION INITIAL DISCUSSION [facility] Start: 2008 Tobacco Screening Tobacco Screening [facility] Start: 2007 HPV VACCINE (1 - 2-dose series) HPV VACCINE (1 - 2-dose series) [facility] Start: 2005 HPV Vaccine (1 - 2-dose series) HPV Vaccine (1 - 2-dose series) [facility] Start: 1996 COVID-19 VACCINE (#1) COVID-19 VACCINE (#1) [facility] Start: 1996 HEPATITIS B (1 of 3 - 3-dose series) HEPATITIS B (1 of 3 - 3-dose series) [facility] Bacteria identified in Urine by Culture Urine culture Microbiology Routine Missed menses Ordered: 04/07/2024 [facility] Comment on above: Ordered: 04/07/2024 CBC W Auto Differential panel - Blood CBC and differential Lab Routine Missed menses Ordered: 04/07/2024 [facility] Comment on above: Ordered: 04/07/2024 CHLAMYDIA TRACHOMATI S (GENITO/STI) CHLAMYDIA TRACHOMATIS (GENITO/STI) Lab Routine First trimester Screen for STD (sexually transmitted disease) Vaginal discharge Ordered: 04/20/2024 [facility] Comment on above: Ordered: 04/20/2024 Cytology Cervical or vaginal smear or scraping study Pap Smear Pathology and Cytology Routine Well woman exam with routine gynecological exam Ordered: 04/20/2024 [facility] Work Phone: Comment on above: Ordered: 04/20/2024 Hemoglobin A1c/Hemoglobin.total in Blood Hemoglobin A1c Lab Routine Missed menses Ordered: 04/07/2024 [facility] Comment on above: Ordered: 04/07/2024 Hepatitis B virus surface Ag [Presence] in Serum or Plasma by Immunoassay Hepatitis B surface antigen Lab Routine Missed menses Ordered: 04/07/2024 [facility] Comment on above: Ordered: 04/07/2024 Hepatitis C virus Ab [Presence] in Serum or Plasma by Immunoassay Hepatitis C antibody Lab Routine Missed menses Ordered: 04/07/2024 [facility] Comment on above: Ordered: 04/07/2024 HIV-1/HIV-2 antigen/antibody combination immunoassay HIV-1 and HIV-2 antibodies Lab Routine Missed menses Ordered: 04/07/2024 [facility] Comment on above: Ordered: 04/07/2024 Neisseria gonorrhoea e DNA [Presence] in Unspecified specimen by LAUREN with probe detection Neisseria gonorrhea DNA probe, direct Lab Routine First trimester Screen for STD (sexually transmitted disease) Vaginal discharge Ordered: 04/20/2024 [facility] Comment on above: Ordered: 04/20/2024 Patient referral [facility] Work Phone: Progesterone [Mass/volume] in Serum or Plasma [facility] Progesterone [Mass/volume] in Serum or Plasma [facility] Progesterone [Mass/volume] in Serum or Plasma [facility] Progesterone [Mass/volume] in Serum or Plasma [facility] Progesterone [Mass/volume] in Serum or Plasma [facility] Reagin Ab [Presence] in Serum by RPR RPR Lab Routine Missed menses Ordered: 04/07/2024 [facility] Comment on above: Ordered: 04/07/2024 Rubella antibody, IgG Rubella an tibody, IgG Lab Routine Missed menses Ordered: 04/07/2024 [facility] Comment on above: Ordered: 04/07/2024 SURESWAB(R) ADVANCED VAGINITIS PLUS, TMA SURESWAB(R) ADVANCED VAGINITIS PLUS, TMA Pathology and Cytology Routine First trimester Screen for STD (sexually transmitted disease) Vaginal discharge Ordered: 04/20/2024 [facility] Comment on above: Ordered: 04/20/2024 Thyrotropin [Units/volume] in Serum or Plasma TSH Lab Routine Missed menses Ordered: 04/07/2024 [facility] Comment on above: Ordered: 04/07/2024 [facility] End: 07-07-2024 XR MODIFIED BARIUM SWALLOW W SPEECH THERAPY XR MODIFIED BARIUM SWALLOW W SPEECH THERAPY Radiology Routine Dysphagia, unspecified type 1 Occurrences starting 06/08/2023 until 07/07/2024 [facility] Work Phone: Comment on above: 1 Occurrences starting 06/08/2023 until 07/07/2024 [facility] Work Phone: [facility] Immunizations Immunization Date Immunization Notes Care Provider Vaishali yo 05-21-2023 influenza virus vaccine, unspecified formulation [place] [facility] 05-21-2023 influenza, injectabl e, 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, 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 free [employer] Darwin Easterwood Work Phone: [facility] 05-21-2023 influenza, injectabl e, 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, contains 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 Darwin Easterwood Other [employer] Other 06-15-2022 influenza, injectabl e, 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, 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 free [employer] Darwin Easterwood Work Phone: [facility] 06-15-2022 influenza, injectabl e, 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, contains 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 Darwin Easterwood Other [facility] Work Phone: 06-15-2022 influenza virus vaccine, unspecified formulation Francy Gan PA-C Work Phone: [facility] 06-15-2021 influenza nasal, unspecified formulation Ruby Whittington MD Work Phone: [facility] Work Phone: 06-15-2021 influenza virus vaccine, unspecified formulation [place] [facility] 06-15-2021 influenza, injectabl e, 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, 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 free [employer] Darwin [facility] Work Phone: [facility] 06-15-2021 influenza, injectabl e, 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, contains 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 [facility] Other [facility] Work Phone: 05-15-2021 influenza nasal, unspecified formulation Ruby Whittington MD Work Phone: [facility] Work Phone: 05-15-2021 influenza virus vaccine, unspecified formulation [place] [place] [facility] 05-15-2021 influenza, high dose seasonal, 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-free Unknown Unknown [facility] Work Phone: 11-15-2020 Pfizer-BioNTech COVID-19 Vacc 30 MCG/0.3ML Intramuscular Suspension Unknown Unknown [facility] 11-12-2020 COVID-19 vaccine, unknown product (NON-US) Ruby Whittington MD Work Phone: [facility] Work Phone: 10-24-2020 Pfizer-BioNTech COVID-19 Vacc 30 MCG/0.3ML Intramuscular Suspension Unknown Unknown [facility] 03-23-2016 tetanus toxoid, reduced diphtheria toxoid, and acellular pertussis vaccine, adsorbed Unknown Unknown [facility] Work Phone: 03-23-2016 varicella virus vaccine Unknown Unknown [facility] Work Phone: 03-01-2002 diphtheria, tetanus toxoids and acellular pertussis vaccine, unspecified formulation Unknown Unknown [facility] Work Phone: 03-01-2002 DTaP, unspecified formulation [place]one [place] [facility] 03-01-2002 measles, mumps and rubella virus vaccine Unknown Unknown [facility] Work Phone: 03-01-2002 poliovirus vaccine, inactivated Unknown Unknown [facility] Work Phone: 03-01-2002 poliovirus vaccine, unspecified formulation [place]one Rock [facility] 04-20-2001 hepatitis B vaccine, pediatric or pediatric/adolescent dosage Unknown Unknown [facility] Work Phone: 01-03-1998 diphtheria, tetanus toxoids and acellular pertussis vaccine, unspecified formulation Unknown [facility] Work Phone: 01-03-1998 DTaP, unspecified formulation Tyrone Rock [facility] 09-18-1997 measles, mumps and rubella virus vaccine Unknown Unknown [facility] Work Phone: 09-18-1997 varicella virus vaccine Unknown Unknown [facility] Work Phone: 03-30-1997 hepatitis B vaccine, pediatric or pediatric/adolescent dosage Unknown Unknown [facility] Work Phone: 1996 diphtheria, tetanus toxoids and acellular pertussis vaccine, unspecified formulation Unknown [facility] Work Phone: 1996 DTaP, unspecified formulation Tyrone Rock [facility] 1996 trivalent poliovirus vaccine, live, oral Unknown Unknown [facility] Work Phone: 1996 diphtheria, tetanus toxoids and acellular pertussis vaccine, unspecified formulation Unknown [facility] Work Phone: 1996 DTaP, unspecified formulation Tyrone Rock [facility] 1996 haemophilus influenz ae type b vaccine, conjugate unspecified formulation Unknown Unknown [facility] Work Phone: 1996 Hib, unspecified formulation Tyrone Rock [facility] 1996 trivalent poliovirus vaccine, live, oral Unknown Unknown [facility] Work Phone: 1996 diphtheria, tetanus toxoids and acellular pertussis vaccine, unspecified formulation Unknown Unknown [facility] Work Phone: 1996 DTaP, unspecified formulation Tyrone Rock [facility] 1996 diphtheria, tetanus toxoids and acellular pertussis vaccine, unspecified formulation Unknown Unknown [facility] Work Phone: 1996 DTaP, unspecified formulation Tyrone Rock [facility] 1996 haemophilus influenz ae type b vaccine, conjugate unspecified formulation Unknown Unknown [facility] Work Phone: 1996 Hib, unspecified formulation [place] [place] [facility] 1996 measles, mumps and rubella virus vaccine Unknown Unknown [facility] Work Phone: 1996 varicella virus vaccine Unknown Unknown [facility] Work Phone: 1996 diphtheria, tetanus toxoids and acellular pertussis vaccine, unspecified formulation Unknown Unknown [facility] Work Phone: 1996 DTaP, unspecified formulation [place] [place] [facility] 1996 haemophilus influenz ae type b vaccine, conjugate unspecified formulation Unknown Unknown [facility] Work Phone: 1996 hepatitis B vaccine, pediatric or pediatric/adolescent dosage Unknown Unknown [facility] Work Phone: 1996 Hib, unspecified formulation [place] [place] [facility] 1996 trivalent poliovirus vaccine, live, oral Unknown Unknown [facility] Work Phone: 1996 hepatitis B vaccine, pediatric or pediatric/adolescent dosage Unknown Unknown [facility] Work Phone: Payers Date Payer Category Payer Self-pay [id number] 2023 Self-pay [id number] 2022 Private Health Insurance [id number] 2021 Unknown 2019 Commercial [employer] - PPO [id number] 1996 Unknown [id number] 2.16.84 0.1.822121.3.579.2.593 1996 Unknown [id number] 2.16.8 40.1.378735.3.579.2.727 1996 Unknown [id number] 2.16.8 40.1.678803.3.579.2.727 1996 Unknown [id number] 2.16.8 40.1.512820.3.579.2.727 1996 Unknown [id number] 2.16.840.1.470327.3.579.2.1286 1996 Unknown [id number] 2.16.840.1.962082.3.579.2.1286 1996 Unknown [id number] 2.16.840.1.937273.3.579.2.1286 1996 Unknown [id number] 2.16.840.1.916392.3.579.2.1286 1996 Unknown [id number] 2.16.8 40.1.905422.3.579.2.727 1996 Unknown [id number] 2.16.8 40.1.425361.3.579.2.727 1996 Unknown [id number] 2.16.8 40.1.675037.3.579.2.727 1996 Unknown [id number] 2.16.8 40.1.873195.3.579.2.727 1996 Unknown [id number] 2.16.8 40.1.004831.3.579.2.727 1996 Unknown [id number] 2.16.8 40.1.738389.3.579.2.727 1996 Unknown [id number] 2.16.8 40.1.261812.3.579.2.727 1996 Unknown [id number] 2.16.8 40.1.782055.3.579.2.727 1996 Unknown [id number] 2.16.84 0.1.461160.3.579.2.9 1996 Unknown [id number] 2.16.84 0.1.888655.3.579.2.9 1996 Unknown [id number] 2.16.84 0.1.450819.3.579.2.1259 1996 Unknown [id number] 2.16.84 0.1.982777.3.579.2.1258 1996 Unknown [id number] 2.16.84 0.1.202735.3.579.2.9 1996 Unknown [id number] 2.16.84 0.1.737746.3.579.2.1258 1996 Unknown [id number] 2.16.84 0.1.140140.3.579.2.1259 1996 Unknown [id number] 2.16.84 0.1.466588.3.579.2.1259 1959 Unknown [id number] Unknown [id number] Unknown [id number] Unknown [id number] 2.16.8 40.1.134666.3.579.2.531 Unknown [id number] 2.16.8 40.1.491322.3.579.2.531 Unknown [id number] 2.16.8 40.1.011973.3.579.2.531 Unknown [id number] 2.16.8 40.1.434861.3.579.2.531 Unknown [id number] 2.16.8 40.1.104284.3.579.2.531 Unknown [id number] 2.16.8 40.1.641526.3.579.2.531 Unknown [id number] 2.16.8 40.1.032492.3.579.2.531 Unknown [id number] 2.16.8 40.1.456948.3.579.2.531 Unknown [id number] 2.16.8 40.1.891873.3.579.2.531 Unknown [id number] 2.16.8 40.1.543888.3.579.2.531 Unknown [id number] 2.16.8 40.1.339508.3.579.2.531 Unknown [id number] 2.16.8 40.1.079112.3.579.2.531 Unknown [id number] 2.16.8 40.1.453737.3.579.2.531 Unknown [id number] 2.16.8 40.1.514968.3.579.2.531 Social History Date Type Detail Facility Start: 07-14-2022 End: 03-21-2024 No alcohol use No alcohol use [facility] DO Work Phone: Start: 12-29-2020 End: 08-04-2023 Tobacco smoking status NHIS Never smoked tobacco (finding) [facility] Start: 1995 Sex Assigned At Female [facility] Start: 07-14-2022 End: 03-21-2024 Sex Assigned At [facility] [employer] Other Tobacco smoking status Never [facility] Tobacco smoking status ORIS Tobacco smoking consumption unknown [facility] Start: 1995 Sex Assigned At Not on file [facility] Start: 04-17-2022 End: 07-14-2022 Exposure to SARS-CoV-2 (event) Not sure [facility] Start: 07-14-2022 End: 2024 Tobacco use and exposure Smokeless tobacco non-user [facility] Start: 07-14-2022 End: 09-19-2024 Alcohol intake Lifetime non-drinker (finding) [facility] Start: 07-13-2022 Gender identity Identifies as female gender (finding) [facility] Start: 02-16-2024 [facility] Start: 03-19-2015 End: 09-22-2024 Sex Female (finding) [facility] Tobacco [facility] Comment on above: Denies Tobacco smoking status No Smoking Status Entered [facility] NEGATED: Highlighted rowStart: NINF History of tobacco use Passive smoker [facility] Medical Equipment Procedure Code Equipment Code Equipment Origin al Text Equipment Identifier Dates Pen [place] 31G X 5 MM Start: 05-18-2022 Goals Date Patient Goal Desired Activity /State Personal health goal Functional Status Date Assessment Result Facility 09-06-2024 Functional Status N/A [facility] 09-05-2024 Functional Status N/A [facility] 09-05-2024 Functional Status N/A [facility] 03-18-2024 Functional Status N/A [facility] 09-29-2023 Functional Status N/A [facility] 03-22-2023 Functional Status N/A [facility] 02-18-2022 Functional Status N/A [facility] Clinical Notes 01-14-2022 to 09-19-2024 Aleisha Abreu [...] H/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 Exam conducted with a shell fisherman present. Vitals: Estimated body mass index is [...] Brain Way DO documented in this encounter [facility] 09-07-2024 History of Presen t illness Narrative [...] H/O calculus of kidney during Tiffani's disease ([facility]) 02/2022 History of Obesity (BMI 30-39.9) Pericarditis HISTORY PAST MEDICAL HISTORY SOCIAL HISTORY Past Medical History: Diagnosis Date Anxiety Blood type, Rh positive H/O calculus of kidney during Tiffani's disease ([facility]) 02/2022 History of Obesity (BMI [...] of: H[place]OLITO Shore documented in this encounter [facility] 09-07-2024 Note History and Physical [...] scheduled. Rogelio Nath M.D. leeroy Dictated: 09/05/2024 [id number] Transcribed: 09/05/2024 [facility] Comment on above: Result Comment: Elec tronically Signed By: Pham GALLAGHER, Rogelio Robins\.br\Date and Time Signed: 09/07/24 08:38 EST 09-06-2024 Hospital Discharg e instructions Patient Education 09/06/2024 16:15:07 Concussion, Adult, Fyoz-xm-Jgci Concussion, Adult A concussion is a brain [...] if you are dizzy. General instructions Take bnto-qoh-rhjhfbu and prescription medicines only as told by your doctor. Avoid taking strong pain medicines (opioids) after a concussion. Do not drink alcohol until your doctor says you can. Watch your symptoms and tell other people to do the same. Other problems can occur after a concussion. Tell your stamping die try out worker, teachers, school nurse, school counselor, agile scrum coach, or safety trainer about your injury and symptoms. Tell [...] the National Suicide Prevention Lifeline at or 579. This is open 24 hours a day. Text the Crisis Text Line at 693683. This information is not intended to replace advice given to you by your health care provider. Make sure you discuss any questions you have with your health care provider. Document Revised: 12/25/2022 Document Reviewed: 12/25/2022 [email or web address] Patient Education 2023 Claro. Follow Up Care 09/06/2024 13:58:27 With:DARWIN JONES Address: [address] [place] [address] [place] [address] [phone] Business (1) When:09/09/2024 16:14:40 Comments:Call to schedule a follow-up appointment with your primary care provider. Use Zofran as needed for nausea/vomiting. Return to the ED with any new or worsening symptoms. [facility] 09-06-2024 Note ED Patient Education Note [...] you are dizzy. General instructions ??? Take kxjj-zaf-zcpmpov and prescription medicines only as told by your doctor. ??? Avoid taking strong pain medicines (opioids) after a concussion. ??? Do not drink alcohol until your doctor says you can. ??? Watch your symptoms and tell other people to do the same. Other problems can occur after a concussion. ??? Tell your stamping die try out worker, teachers, school nurse, school counselor, agile scrum coach, or safety trainer about your injury and symptoms. Tell [...] You have any (more content not included)... [facility] 09-06-2024 Evaluation + Plan note Extrac [...] date 09/06/24 15:25:00 EST, 09/06/24 15:25:00 EST [facility] [id number] NoteDischarge Instructions Given Worsening The following Patient Education Materials have been given to the patient: ~~ [facility] Evaluation + Plan note Extracted from: [...] Diagnostic Tests Pending * Urine Culture 09/05/24 [facility] 01-21-2025 Hospital Discharge instructions Patient Education 09/05/2024 04:35:45 Syncope, Adult, Jhrp-yo-Yneh Syncope, Adult Syncope is when you pass [...] you until you feel better. Medicines Take bgtx-zae-gqtjtdn and prescription medicines only as told by [...] provider. Document Revised: 12/11/2021 Document Reviewed: 12/11/2021 [employer] Patient Education 2023 Claro. 09/05/2024 04:35:45 Nausea and Vomiting, Adult, Rnsv-my-Kpjk Nausea and Vomiting, Adult Nausea is feeling [...] fruit juice). ?Low-calorie sports drinks. Eat bland, skuj-oz-dxikgr foods in small amounts as you are able, such as: ?Bananas. ?Applesauce. ?Rice. ?Low-fat (lean) meats. ?[place]. ?Crackers. Avoid drinking fluids that have a lot of sugar or caffeine in them. This includes energy drinks, sports drinks, and soda. Avoid alcohol. Avoid spicy or fatty foods. General instructions Take hdhk-fug-qoiqhav and prescription medicines only as told by your doctor. Drink enough fluid to keep your pee (urine) pale yellow. Wash your hands often with soap and water for at least 20 seconds. If you cannot use soap and water, use hand check processing clerk. Make sure that everyone in your home [...] your doctor about eating and drinking. Take anyr-edm-cmftgaf and prescription medicines only as told by your doctor. Contact your doctor if your symptoms get worse or you have new symptoms. Keep all follow-up visits. This information is not intended to replace advice given to you by your health care provider. Make sure you discuss any questions you have with your health care provider. Document Revised: 02/06/2022 Document Reviewed: 02/06/2022 [employer] Patient Education 2023 Claro. 09/05/2024 04:35:45 Diarrhea, Adult, Oioo-lh-Yxvi Diarrhea, Adult Diarrhea is when you pass [...] regular sports drinks. ?Avoid alcohol. Eat bland, vndf-za-mezslx foods in small amounts as you are able. These foods include: ?Bananas. ?Applesauce. ?Rice. ?Low-fat (lean) meats. ?[place]. ?Crackers. Avoid spicy or fatty foods. Medicines Take lonw-ssz-oxszugh and prescription medicines only as told by your doctor. If you were prescribed antibiotics, take them as told by your doctor. Do not stop taking them even if you start to feel better. General instructions Wash your hands often using soap and water for 20 seconds. If soap and water are not available, usehand check processing clerk. Others in your home should wash their [...] provider. Document Revised: 01/19/2023 Document Reviewed: 01/19/2023 [employer] Patient Education 2023 Claro. 09/05/2024 04:35:45 Dehydration, Adult, Sqjn-xa-Iktb Dehydration, Adult Dehydration is a condition in [...] or sea (high in altitude). The thinner, leather drier air causes more fluid loss. Doing [...] of fat or sugar. General instructions Take feci-qzn-xactcbx and prescription medicines only as told by [...] provider. Document Revised: 03/01/2023 Document Reviewed: 03/01/2023 [employer] Patient Education 2023 Claro. 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 Way for further evaluation management. Please return to the ED for any new or worsening symptoms. [facility] [phone] NoteProgress Note-Nurse @0846 OB RN arrived in patient room in ER room 14. Patient placed on & ctx monitor. Patient ctx every 2-5 min 40-60 sec with some 20-30sec irritability. Ctx mild to palpation. Pt rates them 4/10 on pain scale. reactive for gestation with baseline HR of 130. RN will report finding to OB Dr Nath and ask about admission for further evaluation on OB unit.[facility]01-21-2025 NoteED Patient Education Note Gastroenterology Nausea [...] ? Low-calorie sports drinks. ??? Eat bland, izzf-sg-eqxguf foods in small amounts as you are able, such as: ? Bananas. ? Applesauce. ? Rice. ? Low-fat (lean) meats. ? [place]. ? Crackers. ??? Avoid drinking fluids that have a lot of sugar or caffeine in them. This includes energy drinks, sports drinks, and soda. ??? Avoid alcohol. ??? Avoid spicy or fatty foods. General instructions ??? Take ujhm-oxt-dljrrgd and prescription medicines only as told by your doctor. ??? Drink enough fluid to keep your pee (urine) pale yellow. ??? Wash your hands often with soap and water for at least 20 seconds. If you cannot use soap and water, use hand check processing clerk. ??? Make sure that everyone in your [...] doctor about eating and drinking. ??? Take loih-afk-eurtmaj and prescription medicines only as told by your doctor. ??? Contact your doctor if your symptoms get worse or you have new symptoms. ??? Keep all follow-up visits. This information is not intended to replace advice given to you by your health care provider. Make sure you discuss any questions you have with your health care provider. Document Revised: 02/06/2022 Document Reviewed: 02/06/2022 [employer] Patient Education ? 2023 Claro. Infectious Disease Diarrhea, Adult Diarrhea is when [...] Take an ORS (ora (more content not included)...[facility] 08-25-2024 Evaluation note* Diagnosis Onset Date Resolution Status Admit Date Class 2 obesity with body ma ss index (BMI) of 37.0 to 37.9 in adult acute August 25 11:56am Tiffani's disease acute 2024 11:56am Hypothyroidism acute August 252024 11:56am Mild left ventricular hypertrophy acute August 25 11:56am Second trimester acute August 25, 2024 11:56am [facility] Work Phone: 1(157) 743-221401-08-2025 History of Present illness Narrative* Aleisha Abreu, COMMUNICATION CONSULTANT - 08/23/2024 11:00 AM EST Reason for [...] H/O calculus of kidney during Tiffani's disease ([facility]) 02/2022 History of Obesity (BMI 30-39.9) Pericarditis HISTORY PAST MEDICAL HISTORY SOCIAL HISTORY Past Medical History: Diagnosis Date Anxiety Blood type, Rh positive H/O calculus of kidney during Tiffani's disease ([facility]) 02/2022 History of Obesity (BMI [...] nursing note reviewed. Exam conducted with a shell fisherman present. Vitals: Estimated body mass index is [...] of: Brain Way DO documented in this encounterMiss[facility] [id number] History of Present illness Narrative* Aleisha Abreu, COMMUNICATION CONSULTANT - 07/11/2024 10:10 AM EST Reason for [...] H/O calculus of kidney during Tiffani's disease ([facility]) 02/2022 History of Obesity (BMI 30-39.9) Pericarditis HISTORY PAST MEDICAL HISTORY SOCIAL HISTORY Past Medical History: Diagnosis Date Anxiety Blood type, Rh positive H/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 Exam conducted with a shell fisherman present. Vitals: Estimated body mass index is [...] of: Brain Way DO documented in this encounterMissouri [facility] Medical [id number] History of Present illness Narrative* Laura Herron [facility] - 2024 2:15 PM EST Headache/epigastric pain/blurry [...] male Have you been seen here at [facility] in a previous ? No Recent ER visits or hospitalizations? no Bring blood sugar log or meter with you today? (Please bring them with you for every visit at [facility]) n/a Flu vaccine (Jun-October)? Yes [...] effusion. Also she was then evaluated by cutting machine tender helper who told her that she had pericarditis and that resolved with a taking Motrin however she did not had an echocardiogram. Saw Dr. Coronado. 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 Yes NotIn System Ref Prov mc568-rhkb-xxzww acid ( 19) 29 mg iron- 1 [...] would recommend she establishes care with a power manager for it to be further evaluated 7. [...] Please refer her locally to see a power manager for the incidental finding on the CT [...] me if you have any concerns. Hayden eRilly MD, FACOG (she/hers) Maternal- Medicine [facility] [address] [facility] [address] [place] [address] This document was created with [employer] technology. Though I make every effort to review the dictation as it is transcribed, on occasion the spoken word can be misinterpreted by the technology leading to inappropriate words, phrases, or sentences. This note is addressed to the requesting provider as a consultation for clinical guidance. Specificmedical abbreviations are occasionally used and those are generally approved by the [place]?Board of?Obstetrics and?Gynecology?as well as?Lauryn lund abbreviations. The above plan of care was based solely on the diagnoses for which a consultation was requested. ?More frequent testing may be indicated based on her other medical/obstetrical conditions. The management of other or medical conditions is beyond the scope of requested consultation and will c ontinue to be followed by the primary medicaid plan compliance director or primary care provider. Note to patient: The Cures Act makes medical notes like these [...] opinion of the practitioner. [facility] Radiology Diagnostic study [facility] [employer] [address] [place] [address] Ultrasound Report Signed Patient: Tawnya Herring MR#: [id number] : 1995 Acct:[id number] Age/Sex: 28 / F ADM Date: 4 Loc: Room: Type: [facility] Attending Dr: Brain Way DO Ordering Provider: [...] Norton Jr., D.OEfren06/22/2024 4:00 PM Dictation Location: [employer] Tech: Rae De Paz Transcribed By: AGUILAR 06/22/24 1600 Dictated By: Zay Norton Jr, DO 06/22/24 1552 Signed By: 06/22/24 1600 [facility]10-28-2024 History of Present illness Narrative * [...] H/O calculus of kidney during Tiffani's disease ([facility]) 02/2022 History of Obesity (BMI 30-39.9) Pericarditis HISTORY PAST MEDICAL HISTORY SOCIAL HISTORY Past Medical History: Diagnosis Date Anxiety Blood type, Rh positive H/O calculus of kidney during Tiffani's disease ([facility]) 02/2022 History of Obesity (BMI [...] of: Brain Way DO documented in this encounterMissouri [facility] Medical [id number] Evaluation note* Diagnosis Onset Date Resolution Status Admit Date Well adult exam noneactive May 11, 2024 10:46am [facility] Work Phone: 1(444) 479-400409-25-2024 History of Present illness Narrative* Aleisha Abreu [...] H/O calculus of kidney during Tiffani's disease ([facility]) 02/2022 History of Obesity (BMI 30-39.9) Pericarditis HISTORY PAST MEDICAL HISTORY SOCIAL HISTORY Past Medical History: Diagnosis Date Anxiety Blood type, Rh positive H/O calculus of kidney during Tiffani's disease ([facility]) 02/2022 History of Obesity (BMI [...] nursing note reviewed. Exam conducted with a shell fisherman present. Vitals: Estimated body mass index is [...] of: Brain Way DO documented in this encounterMissouri Baptist Medical [id number] History of Present illness Narrative* Coral Rg [...] H/O calculus of kidney during Tiffani's disease ([facility]) 02/2022 History of Obesity (BMI 30-39.9) Pericarditis HISTORY PAST MEDICAL HISTORY SOCIAL HISTORY Past Medical History: Diagnosis Date Anxiety Blood type, Rh positive H/O calculus of kidney during Tiffani's disease ([facility]) 02/2022 History of Obesity (BMI [...] nursing note reviewed. Exam conducted with a shell fisherman present. Vitals: Estimated body mass index is [...] obtained without difficulty and patient was given [facility] order to have obtained. Patient advised to take ASA 81mg. Orders Placed This Encounter Procedures CHLAMYDIA TRACHOMATIS (GENITO/STI) Neisseria gonorrhea DNA probe, direct POCT urinalysis dipstick manually resulted Follow Up: Patient is to return to our office in 4 weeks for routine OB appointment Documented by Coral gR LPN on behalf of: Brain Way DO documented in this encounterMissouri Baptist Medical [id number] History of Present illness Narrative* Thelma Elizabeth [...] H/O calculus of kidney during Tiffani's disease ([facility]) 02/2022 History of Obesity (BMI 30-39.9) [...] or undercooked meat, and stay away from [facility]. Patient has also been advised to [...] by: Thelma Elizabeth LPN documented in this encounterMissouri Baptist Medical [id number] Hospital Discharge instructions Patient Education 03/18/2024 12:15:03 [...] provider. Document Revised: 01/31/2021 Document Reviewed: 01/31/2021 [employer] Patient Education 2022 Claro. 03/18/2024 12:15:03 Subchorionic Hematoma Subchorionic Hematoma A [...] provider. Document Revised: 04/28/2021 Document Reviewed: 04/28/2021 [employer] Patient Education 2022 Claro. Follow Up Care 03/18/2024 08:08:01 With:Rogelio Nath Address: [address] [address] Business (1) When:03/21/2024 11:54:39 With:DARWIN LARACOPEN Address: [address] [place] [address] [phone] Business (1) When:Within 3 Day(s) [facility] 08-03-2024 NoteED Patient Education Note Obstetrics [...] provider. Document Revised: 01/31/2021 Document Reviewed: 01/31/2021 Ad[employer] Patient Education ? 2022 Claro. Subchorionic Hematoma A hematoma is a collection of blood outside of the blood vessels. A subchorionic hematoma is a collection of blood between the outer wall of the embryo (chorion) and the inner wall of the uterus. This condi (more content not included)...[facility]04-04-2024 NoteHNO ID: [id number] Author: RUBY WHITTINGTON MD Service: ? Author [...] RTN 1 year. Ruby Whittington MD Endocrinology StaffU[facility] Health04-04-2024 History of Present illness Narrative* Ruby Whittington [...] Whittington MD Endocrinology Staff documented in this encounterPrem[facility] Instructions* Patient Instructions* Odalis Greene - 11/18/2023 7:58 AM EDT Thank you for choosing the [facility] Department of Endocrinology, Diabetes and Metabolism. Did you know that you need to call 48 hours in advance of your scheduled visit, if you are unable to make your appointment? [facility] [place] thanks you for your commitment, because patients not showing to their appointment results in a lost opportunity for patients to receive [facility] health care at the [facility]. To Cancel an appointment, please choose one of the following: - Call the Appointment Call Center at [phone] - From [employer], Go to Appointments - Cancel Appts If cancelling, consider your need to reschedule to prevent further delays in your care. To Schedule an appointment, please choose one of the following: - Call the Appointment Call Center at [phone] - From [employer], Go to Appointments - Request an Appt documented in this encounterPremier Health [facility] Center02-14-2024 Hospital Discharge instructions Patient Education 09/29/2023 11:05:01 [...] numbers. This can be done either in [place] or metric measurements. Note that charts and online BMI calculators are available to help you find your BMI quickly and easily without having to do these calculations yourself. To calculate your BMI in [place] measurements: 1.Measure your weight in pounds [...] Centers for Disease Control and Prevention: www.cdc.gov [place] Heart Association: www.heart.org National Heart, Lung, and Blood [place]: www.nhlbi.nih.gov Summary Body mass index (BMI) is a number that is calculated from a person's weight and height. BMI may help estimate how much of a person's weight is composed of fat. BMI can help identify thosewho may be at higher risk for certain medical problems. BMI can be measured using [place] measurements or metric measurements. BMI charts are used to identify whether you are underweight, normal weight, overweight, or obese. This information is not intended to replace advice given to you by your health care provider. Make sure you discuss any questions you have with your health care provider. Document Revised: 04/24/2020 Document Reviewed: 03/01/2020 [employer] Patient Education 2022 Claro. 09/29/2023 11:04:59 Sinus Infection, Adult Sinus Infection, [...] saline washes). ?Medicines that treat allergies (antihistamines). ?Eiif-hde-qywrdzp pain relievers. If caused by bacteria, your [...] at home: Medicines Take, use, or apply mfsl-ups-zxaktyq and prescription medicines only as told by [...] and water are not available, use hand check processing clerk. Do not smoke. Avoid being around people [...] provider. Document Revised: 07/07/2022 Document Reviewed: 07/07/2022 [employer] Patient Education 2022 Claro. Follow Up Care 09/29/2023 09:12:00 With:DARWIN JONES CNP Address: [address] [place] [address] [place] [address]- When: Unknown [facility] 02-06-2024 Evaluation note* Encounter [...] BMI is required on scripts in the [facility]. Sep, Other *Progress note was completed with the assistance of voice recognition software for dictation purposes. Please excuse any grammatical errors that were not corrected during review process. [employer] Other 01-10-2024 Evaluation note* Encounter Date Diagnosis [...] that were not corrected during review process. [employer] Other 12-01-2023 Miscellaneous Notes* Telephone Encounter - Kenan Gomez - 07/16/2023 9:39 AM EST LVM to let patient know their appt has been rescheduled with Dr. Whittington. documented in this encounterPremier Health [facility] Center11-08-2023 Evaluation note* Encounter Date Diagnosis [...] comfortable prescribing this medication at this time. [employer] Other 10-24-2023 NoteHNO ID: [id number] Author: Francy Gan PA-C Service: ? Author Type: Physician Manager Unit Type: Progress Notes Filed: 06/08/2023 2:53 PM [...] will be in touch with results via [employer] HPI: Tawnya is a 27 year old [...] testing/treatment Medical Decision Making Level: 3 - [facility]10-[facility]-2023 History of Present illness Narrative* Francy Gan [...] will be in touch with results via [employer] HPI: Tawnya is a 27 year old [...] Level: 3 - Low documented in this encounterPremier Health [facility] Center10-24-2023 Instructions* Patient Instructions* Francy Gan PA-C - 06/08/2023 2:16 PM EDT Continue the omeprazole for another 1.5 months documented in this encounterPremier Health [facility] Valley [facility] Center10-11-2023 Evaluation note* Encounter Date Diagnosis [...] that were not corrected during review process. [employer] Other 09-13-2023 Evaluation note* Encounter Date Diagnosis [...] Discussed short term 8 week course vs. china decorator management. Discussed pros and cons of taking [...] that were not corrected during review process. [employer] Other 09-01-2023 Evaluation note* Encounter Date Diagnosis [...] SCANNED INTO PATIENT CHART AND FAXED TO [employer]. Apr, Other We did briefly discussed the [...] that were not corrected during review process. [employer] Other 08-08-2023 Hospital Discharge instructions Patient Education 03/22/2023 22:52:44 Urinary Tract Infection, Adult, Rtkg-or-Nadm Urinary Tract Infection, Adult A urinary tract [...] Follow these instructions at home: Medicines Take xjeb-szo-suiwdrh and prescription medicines only as told by [...] provider. Document Revised: 03/14/2021 Document Reviewed: 03/14/2021 [employer] Patient Education 2022 Claro. Follow Up Care 03/22/2023 19:54:03 With:DARWIN JONES Address: [address] [place] [address] [place] [address] [phone] Business (1) When:03/25/2023 Comments:Follow-up with your primary care provider in 3 to 5 days. If symptoms worsen, do not improve, or new symptoms arise please report back to emergency department for further evaluation. [facility]08-07-2023 Evaluation + Plan note Diagnostic Tests Pending * Urine Culture 03/22/23 [facility]03-02-2023 Evaluation note* Encounter Date Diagnosis Assessment Notes Treatment Notes Treatment Clinical Notes Oct, Nausea & vomiting (ICD-10 - R11.2) [employer] Other 02-20-2023 Evaluation note* Encounter Date Diagnosis [...] Encounter for weight management (ICD-10 - Z76.89) [employer] Other 02-13-2023 Miscellaneous Notes* Addendum Note - [...] daily. Ruby Whittington MD documented in this encounterPremier Health [facility]01-18-2023 Evaluation note* Encounter Date Diagnosis [...] Encounter for weight management (ICD-10 - Z76.89) [employer] Other 01-10-2023 Evaluation note* Encounter Date Diagnosis [...] as inspiration Patient set the following goals: [employer] Other 12-16-2022 Evaluation note* Encounter Date Diagnosis [...] E06.3) She was recently seen by an white goods appliance tech at [facility] for elevated TSH. She is currently on adequate supplementation and will follow up with them. Jul, Daytime sleepiness (ICD-10 - R40.0) Continue to work on good sleep hygiene and control factors that she can.This could also improve with additional water intake. Jul, Mild depression (ICD-10 - F32.9) Jul, Encounter for weight management (ICD-10 - Z76.89) [employer] Other 11-29-2022 History of Present illness Narrative* [...] Thyroid problem. Referring Physician: Darwin Jones APRN, AMIE Reason for visit: Hypothyroidism due to Tiffani's [...] Staff CC: Darwin Jones APRN, CNP. [address] [place], [place] [id number] documented in this encounterPremier Health [facility] Center11-29-2022 Instructions* Patient Instructions* Soo Begum Wa - 07/14/2022 8:46 AM EST Thank you for choosing the [facility] Department of Endocrinology, Diabetes and Metabolism. Did you know that you need to call 48 hours in advance of your scheduled visit, if you are unable to make your appointment? [facility] [place] thanks you for your commitment, because patients not showing to their appointment results in a lost opportunity for patients to receive [facility] health care at the [facility]. To Cancel an appointment, please choose one of the following: - Call the Appointment Call Center at [phone] - From [employer], Go to Appointments - Cancel Appts If cancelling, consider your need to reschedule to prevent further delays in your care. To Schedule an appointment, please choose one of the following: - Call the Appointment Call Center at [phone] - From [employer], Go to Appointments - Request an Appt documented in this encounterPremier Health [facility]11-02-2022 Evaluation note* Encounter Date Diagnosis [...] samples and titrate her up slowly until [facility] insurance kicks in in August. [...] will discuss at later date if needed. [employer] Other 10-20-2022 Evaluation note* Encounter Date Diagnosis [...] Pt understood and agreed to tx plan. [employer] Other 10-12-2022 Evaluation note* Encounter Date Diagnosis [...] patient set personal goal using given handout. [employer] Other 10-10-2022 Miscellaneous Notes* Telephone Encounter - Linn Hancock - 05/25/2022 2:35 PM EDT LVM for patient that appt on 05/[address] George has been rescheduled to 07/08 at [facility] with Dr. Robertson. sending mail reminder as well. 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 Her Mallampati is not [...] of a comprehensive approach to obesity management [employer] Other 09-02-2022 Evaluation note* Encounter Date Diagnosis [...] to start the weight management program at [facility] in the coming months.Nothing further [...] that were not corrected during review process. [employer] Other 07-07-2022 Hospital Discharge instructions Patient Education [...] Follow these instructions at home: Medicines Take akzm-mjr-voqbsmt and prescription medicines only as told by [...] 04/27/2002 Document Revised: 08/05/2018 Document Reviewed: 05/14/2017 [employer] Patient Education 2020 Claro. 02/18/2022 22:49:49 Migraine Headache Migraine Headache A [...] Follow these instructions at home: Medicines Take egia-jiw-oqnoguq and prescription medicines only as told by your health care provider. Ask your health care provider if the medicine prescribed to you: ?Requires you to avoid driving or using heavy machinery. ?Can cause constipation. You may need to take these actions to prevent or treat constipation: ?Drink enough fluid to keep your urine pale yellow. ?Take wrpy-tyn-rjghuqi or prescription medicines. ?Eat foods that are [...] 08/02/2006 Document Revised: 11/24/2019 Document Reviewed: 09/14/2019 Ad[employer] Patient Education 2020 Claro. Follow Up Care 02/18/2022 20:32:17 With:DARWIN LARACOPEN Address: [address] [place] [phone] Business (1) When:Within 3 Day(s) [facility]07-06-2022 Evaluation + Plan noteExtracted from: Title:ED Note Author:Linn Yusuf PA-C Amado e:02/18/22 1. Headache (R51.9: Headache , unspecified) [...] voices understanding and is agreeable to plan. [facility]07-06-2022 Evaluation note* Encounter Date Diagnosis Assessment [...] and remind her of lab draw at [facility]. Feb, Thyromegaly (ICD-10 - E01.0) [...] that were not corrected during review process. [employer] Other 07-01-2022 History general Narrative - Reported* Type Description Date Medical History Anxiety Medical History pericardi tis- Resolved cardiology signed off Medical History Kidney stones during Medical History Tiffani's disease February 2022 Medical History Abnormal thyroid ult rasound February 2022 work-up pending by ENT Surgical History 2019 Surgical History Cystoscopy 05/2021 Surgical History 2020 Hospitalization History See surgical hx [employer] Other 07-01-2022 History general Narrative - Reported* Type Description Date Medical History Anxiety Medical History pericardi tis- Resolved cardiology signed off Medical History Kidney stones during Medical History Tiffani's disease February 2022 Medical History Abnormal thyroid ult rasound February 2022 work-up pending by ENT Medical History Parathyroid adenoma Surgical History 2019 Surgical History Cystoscopy 05/2021 Surgical History 2020 Hospitalization History See surgical hx [employer] Other 06-29-2022 Evaluation note* Encounter Date Diagnosis [...] that were not corrected during review process. 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 documented in this encounter [facility]Eval[facility]* Diagnosis 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 documented in this encounter [facility] CenterEval[facility] note* Diagnosis Dysphagia, unspecified type- Primary LPRD (laryngopharyngeal reflux disease) Other diseases of larynx documented in this encounter [facility] CenterEvalub[facility] note* Diagnosis Onset Date Resolution Status Obesity acute [facility] Work Phone: Evaluation note* Diagnosis 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 Irregular menstruation, unspecified Female infertility Female infertility of unspecified origin Calculus of kidney documented in this encounter [facility] CenterEvaluation [facility]* Diagnosis Onset Date Resolution Status Obesity acute Class 2 obesity with body ma ss index (BMI) of 37.0 to 37.9 in adult [facility] Work Phone: evaluation note* Diagnosis Onset Date Resolution Status Obesity acute Class 2 obesity with body ma ss index (BMI) of 37.0 to 37.9 in adult acute Class 2 obesity with body ma ss index (BMI) of 37.0 to 37.9 in adult acute [facility] Work Phone: evaluation note* Diagnosis Onset Date Resolution Status Class 2 obesity with body ma ss index (BMI) of 37.0 to 37.9 in adult acute Class 2 obesity with body ma ss index (BMI) of 37.0 to 37.9 in adult acute [facility] Work Phone: evaluation note* Diagnosis Onset Date Resolution Status Class 2 obesity with body ma ss index (BMI) of 37.0 to 37.9 in adult acute [facility] Work Phone: evaluation note* Diagnosis Onset Date Resolution Status Well adult exam noneactive [facility] Work Phone: Evaluation note* Diagnosis Second trimester state, incidental 18 [...] type Depression affecting documented in this encounter [facility]* Diagnosis 22 weeks gestation of Second trimester state, incidental Nausea and vomiting during Diabetes mellitus screening Screening for diabetes mellitus [facility] Diagnosis History of pericarditis- Primary Mild concentric left ventricular hypertrophy (LVH) 25 weeks gestation of documented in this encounter [facility]* Diagnosis Missed menses documented [...] with dates documented in this encounter [facility]* Diagnosis 32 weeks gestation of Third trimester state, incidental Abnormal TSH documented in this encounter [facility] general [...] Surgical History 2020 Hospitalization History See surgical [employer] Other Hisngoe general Narrative - Reported* Type Description Date [...] History 2020 Hospitalization History See surgical hx [employer] Other Hisjdjh general Narrative - Reported* Type Description Date [...] Surgical History 2020 Hospitalization History See surgical [employer] Other History of Present illness Narrative* Patient [...] no other testing or intervention appears necessary. [facility] 600 DO Work Phone: Hospital course Narrative No data available for this section [facility] HospitalInstructionsNot on filedocumented in this encounter [facility] SystemInstructions* Attachments The following attachments cannot be sent through Care Everywhere. * Preeclampsia ([place]) documented in this encounterJoint Township District Memorial HospitalInstructionsNot on file documented in this encounterProPromedica Bay Park HospitalProgress note No data available for this section [facility] HospitalReason for referral (narrative)* [facility]. 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) Referral Organization [facility] Referring Provider First Name Mermentau Referring Provider Last Name [facility] Referring Provider Specialty Nurse Pract sujathaioneheladio Referred Provider Specialty Endocrinolog y Referral Priority Routine [facility] [employer] Other Reason for referral (narrative)* Diagnostic Procedure Only (Routine) - Pending Review Specialty Diagnoses / Procedures Referred By Clint scott Referred To Contact XR IMAGING Diagnoses Dysphagia, unspecified type Procedures XR MODIFIED BARIUM SWALLOW W SPEECH THERAPY RADIOLOGIC EXAM SWALLOW FUNCTION CONTRAST STUDY Francy Gan PA-C [address] [place] [address] [place] [id number] Referral ID Status Reason Start Date Expiration Date Visits Requested Visits Authorized [id number] Pending Review Auto-Generat ed Referral 3 07/07/2024 1 1 [facility] Chief Complaint TAWNYA HERRING is [...] Dysphagia, unspecifi ed type (R13.10) [facility] Referring Provider First Name Darwin Referring Provider Last Name Yasir Referring Provider Specialty Nurse Pract sujathaioner Referred Organization [facility] Referred Address [address] [place], [place],[address] Referred Provider Specialty Ear, Nose an d Throat Referral Priority Routine Reason ABNORMAL US OF THYRO ID Newly discovered [employer] Diagnosis 1 Thyromegaly (E01.0) Referral Organization [facility]ai [facility] [place] Referring Provider First Name Darwin Referring Provider Last Name Yasir Referring Provider Specialty Nurse [place] Referred Provider Specialty Ear, Nose an d Throat Referral Priority Routine Additional Source Comments INFORMATION SOURCE (unrecogn ized section and content) DATE CREATED AUTHOR 09/04/2021 [facility] DATE CREATED AUTHOR AUTHOR'S ORGANIZ ATION 12/18/2022 [facility] DATE CREATED AUTHOR AUTHOR'S ORGANIZ ATION 11/22/2023 [facility] DATE CREATED AUTHOR AUTHOR'S ORGANIZ ATION 03/20/2024 [facility] DATE CREATED AUTHOR AUTHOR'S ORGANIZ ATION 08/05/2024 [facility] DATE CREATED AUTHOR AUTHOR'S ORGANIZ ATION 09/06/2024 [facility] DATE CREATED AUTHOR AUTHOR'S ORGANIZ ATION 09/08/2024 [facility] DATE CREATED AUTHOR AUTHOR'S ORGANIZ ATION 09/13/2024 [facility] DATE CREATED AUTHOR AUTHOR'S ORGANIZ ATION 09/14/2024 [facility] DATE CREATED AUTHOR AUTHOR'S ORGANIZ ATION 09/21/2024 [facility] DATE CREATED AUTHOR AUTHOR'S ORGANIZ ATION 09/23/2024 [facility] Care Teams (unrecognized sec tion [...] Status Dates Darwin Jones APRN Primary Care López matthews Attending Provider Active Start: October 20, 2023 End: October 20, 2023 Team Status: Inactive Member Role Status Dates Darwin Jones APRN Primary Care Provider Active Start: November 01, 2023 End: November 01, [address] Attending Provider Active Start: Maria [facility] 2023 End: November 01, 2023 Team Status: Inactive Member Role Status Dates Darwin Jones APRN Primary Care Pr ovider, Attending Provider Active Start: November 25, 2023 End: November 25, 2023 Team Status: Inactive Member Role Status Dates Darwin Jones APRN Primary Care Provider Active Start: November 30, 2023 End: November 30, [address] Attending Provider Active Start: 2023 End: November 30, 2023 Team Status: Active Member Role Status Dates Provider Conversion Attending Provider Active St art: August 30, 2023 Team Status: Inactive Member Role Status Dates Darwin Jones APRN Primary Care Provider Active Addi Ortega DO [facility] Attending Provider Active Team Status: Inactive [...] Primary Care Provider Active Addi Ortega DO [facility] Attending Provider Active Team Status: Active Member Role Status Dates PHYSICIAN NO FAMILY Primary Care Provider Active Team Status: Inactive Member Role Status Dates Darwin Jones APRN Primary Care Provider, Attend ing Provider Active Team Status: Inactive Member Role Status Dates Darwin Jones APRN Primary Care Provider Active Saad Valera DO Attending Provider Active Report Specialist Relationship Specialty Start Date End Date Darwin Jones, JAVA SECURITY ARCHITECT [address] [address] Referring Family Medicine 04/22/22 Report Specialist Relationship Specialty Start Date End Date Darwin Jones, JAVA SECURITY ARCHITECT [address] [address] Referring Family Medicine 04/22/22 Team Status: Inactive Member Role Status Dates Darwin Jones APRN Primary Care Provider Active Jeovanny Quiros DO Emergency Provider Active Report Specialist Relationship Specialty Start Date End Date Darwin Jones CNP [address] [facility]NOTE 3] [address] [place] [address] Referring [facility] Medicine 04/22/22 Report Specialist Relationship Specialty Start Date End Date Darwin Jones CNP [address] [facility]NOTE 3] [address] [place] [address] Referring Family Medicine 04/22/22 Team Status: Inactive Member Role Status Dates Darwin Jones APRN Attending Provider Active Start: July 23, 2023 End: July 23, 2023 Team Status: Inactive Member Role Status Dates Darwin Jones APRN Attending Provider Active Start: August 25, 2023 End: August 25, 2023 Report Specialist Relationship Specialty Start Date End Date Darwin Jones CNP [address] [address] Referring [facility] Medicine 04/22/22 Team Status: Inactive Member Role Status Dates Darwin Jones APRN Primary Care Pr cassie, Attending Provider Active Start: December 24, 2023 [...] End: April 06, 2024 Addi PERES DO [facility] Attending Provider Active Start: April 06, [...] May 24, 2024 End: May 24, 2024 Report Specialist Relationship Specialty Start Date End Date No Pcp, [place] [id number] PCP - General Family Medicine 08/19/19 Report Specialist Relationship Specialty Start Date End Date No Pcp, [place] [id number] PCP - General Family Medicine 08/19/19 Team [...] June 28, 2024 End: June 28, 2024 Report Specialist Relationship Specialty Start Date End Date No Pcp, [place] [address] PCP - General Family Medicine 08/19/19 Team [...] George has been rescheduled to 07/08 at [facility] with Dr. Robertson. sending mail reminder [...] or prosecute any alcohol or drug abuse patient.[facility] the event this information is protected by the Federal Confidentiality of Alcohol and Drug Abuse Patient Records regulations: The Federal rules restrict any use of the information to criminally investigate or prosecute any alcohol or drug abuse patient.[facility] the event this information is protected by the Federal Confidentiality of Alcohol and Drug Abuse Patient Records regulations: The Federal rules restrict any use of the information to criminally investigate or prosecute any alcohol or drug abuse patient.[facility] the event this information is protected by the Federal Confidentiality of Alcohol and Drug Abuse Patient Records regulations: The Federal rules restrict any use of the information to criminally investigate or prosecute any alcohol or drug abuse patient.[facility] the event this information is protected by the Federal Confidentiality of Alcohol and Drug Abuse Patient Records regulations: The Federal rules restrict any use of the information to criminally investigate or prosecute any alcohol or drug abuse patient.[facility] Center[facility] the event this information is protected by the Federal Confidentiality of Alcohol and Drug Abuse Patient Records regulations: The Federal rules restrict any use of the information to criminally investigate or prosecute any alcohol or drug abuse patient.[facility] FOR RECORDS PERTAINING TO PATIENTS [...] BE BASED ON THE PRIMARY CLINICAL RECORDS. [facility] [employer] [facility]. provides no warranty or guarantee of the accuracy or completeness of information in this document.
[2024-10-02 21:00] VITALS: BP 126/70; PULSE 101
== END 2024-10-02 21:00 | disposition home or self-care (01) ==
LOC: FBCO 01:12 → FBC 20:07
PROVIDERS: PCP Nurse Practitioner Family; Visit Provider Obstetrics & Gynecology
DX: O26.893 Other specified pregnancy related conditions, third trimester (principal); Z3A.34 34 weeks gestation of pregnancy
CPT/HCPCS: 59025

== ENCOUNTER 2024-10-04 14:49 | Observation (INO) | payer OTHER, SELFPAY ==
[2024-10-04 15:05] VITALS: BP 139/69; PULSE 106
--- NOTE | 2024-10-04 15:14 | US_ITS ---
[facility] [place] [id number] Patient Name: BARBY HERRING MRN: [id number] date: 1995 Sex: F Assigned Patient Location: [facility] [place] [facility] [place]Order Number: [id number] Exam Date: 10/05/2024 10:54 Report Date: 10/05/2024 10:58 At the request of: GAMAL DAAN DO Procedure: US OB BPP w non-stress BIOPHYSICAL PROFILE: CLINICAL INFORMATION: decreased movement COMPARISON: 09/28/2024 There is a fetus in cephalic presentation. The reported gestational age is 35 weeks 0 days. The heart rate [id number] beats per minute. FINDINGS: TONE: 1 or more episodes of activity extension and flexion of extremity or opening and closing of the hand [Y] 2/2 GROSS BODY MOVEMENTS: 3 or more discrete body or limb movements [Y] 2/2 BREATHING MOVEMENTS: 1 or more episodes of breathing lasting at least 30 seconds [Y] 2/2 LIEN: A single deepest vertical pocket of amniotic fluid greater than 2 cm [Y] 2/2 LIEN: 26.8cm . This is near the 95th percentile (5th to 95th percentile: 7.0 - 27.9) . Total score: 8/8 US/US OB BPP w non-stress IMPRESSION: NORMAL BIOPHYSICAL PROFILE. BORDERLINE POLYHYDRAMNIOS. Impression dictated by: Aleisha Tapia M.D.10/05/2024 10:58 AM Dictation Location: [employer] Electronically authenticated by: [id number] Y Date: 10/05/2024 10:58
== END 2024-10-04 15:47 | disposition home or self-care (01) ==
LOC: FBC 14:51
PROVIDERS: Admitting Provider Obstetrics & Gynecology; PCP Nurse Practitioner Family; Visit Provider Obstetrics & Gynecology
DX: O36.8130 Decreased fetal movements, third trimester, not applicable or unspecified (principal); Z3A.35 35 weeks gestation of pregnancy
CPT/HCPCS: 76818; G0378; G0379

== ENCOUNTER 2024-10-10 00:59 | Outpatient (OUT) | payer OTHER, SELFPAY ==
--- OUTSIDE RECORDS SUMMARY | 2024-10-10 01:06 | XMS_ITS | CCD ---
Author Organization [facility] Care Team Providers Care Radiologic Technology Instructor Name Role Phone Unknown, Unknown Unavailable Unavailable Unavailable Unavailable NO FAMILY, PHYSICIAN Primary Care Provider Unava ilable DO Addi Ortega Attending Provider Darwin Jones Unavailable DARWIN JONES Primary Care Physician [phone] Lilly Luke Unavailable SHIRLEY Jones Primary Care Provider SHIRLEY Jones Attending Provider DO Saad Valera Attending Provider Ofelia Hester Unavailable [facility] AMIE Darwin Unavailable Sima Ross Unavailable [facility] AMIE Darwin Unavailable SHIRLEY Jones Primary Care Provider SHIRLEY Hester Attending Provider SHIRLEY Jones Primary Care Provider SHIRLEY Hester Attending Provider [phone] Attending Provider [phone] REQUEST, DR HOBSON LISTED Primary Care Unavaila ble SEAMUS ., DR YEUNG Attending Unavailable SEAMUS ., DR YEUNG Consulting Unavailable SEAMUS ., DR YEUNG Admitting Unavailable SHIRLEY Jones Primary Care Provider DO Addi Ortega [facility]ending [facility] Provider [phone] DO Jeovanny Quiros Emergency Provider [facility] Care Provider DO Addi Ortega Attending Provider [facility] Attending Provider [phone] [facility] Primary Care Provider Brain [address] Attending Provider [phone] [facility] Primary Care Provider Brain [address] Attending Provider [phone] RUBY WHITTINGTON Attending Unavailable FRANCY GAN Attending [facility]available [facility] Care Provider Brain [address] Attending Provider [facility] Primary Care Provider DO Brain Way Attending Provider [place] Attending Unavailable Gabriel Curtis Attending Unavailable Tyrone Rock Attending Unavailable [facility] Primary Care Provider DO Brain Way Attending Provider [phone] [facility]ending Provider SHIRLEY Jones Primary Care Provider DO Brain Way Attending Provider SHIRLEY Jones Primary Care Provider DO Brain Way Attending Provider [phone] Unavailable Primary [facility] Provider [facility] Darwin Jones APRN Primary Care Provider [facility] Addi SELLERS Attending Provider Brain Way DO Attending Provider SEAMUS, BRAIN R Referring Unavailable NO PCP, NO PCP Primary Care Unavailable HAYDEN REILLY P Attending Unavailable NO PCP, NO PCP Primary Care Unavailable HAYDEN REILLY Referring Unavailable DARCY ENRIQUEZ Attending Unavailable SEAMUS, BRAIN R Referring Unavailable NO PCP, NO PCP Primary Care Unavailable [facility] Darwin WATSON Primary Care Provider [phone] DO Attending Provider [phone] Mary Ellen Bruce MD Attending Provider [phone] DO Gabriel Curtis Attending Unavailable [place] Attending Unavailable Rogelio Nath Attending Unavailable Rogelio Nath Admitting Unavailable Rogelio Nath Attending Unavailable Rogelio Nath Admitting Unavailable Flash Franco Attending Unavailable [facility] Darwin WATSON Primary Care Provider Brain Way DO Attending Provider [phone] Darwin Jones Primary Care Unavailable Seamus, Brain Attending Unavailable Seamus, Brain Admitting Unavailable Darwin Jones Primary Care Unavailable Seamus, Brain Attending Unavailable Seamus, Brain Admitting Unavailable Seamus, Brain Attending Unavailable [facility] Primary Care Unavailable Seamus, Brain Admitting Unavailable Seamus, Brain Attending Unavailable Darwin Jones Primary Care Unavailable Seamus, Brain Admitting Unavailable Janis Mary Ellen Admitting Unavailable Mary Ellen Bruce Attending Unavailable [facility] Care Unavailable Mary Ellen Bruce Attending Unavailable [facility] Primary Care Unavailable Janis Mary Ellen Admitting Unavailable Seamus, Brain Attending Unavailable [facility] Primary Care Unavailable Seamus, Brain Admitting Unavailable [facility] Primary Care Unavailable Seamus, Brain Attending Unavailable Seamus, Brain Admitting Unavailable [facility] Primary Care Unavailable Seamus, Brain Attending Unavailable Seamus, Brain Admitting Unavailable [facility] Primary Care Unavailable Seamus, Brain Attending Unavailable Seamus, Brain Admitting Unavailable [facility] Primary Care Unavailable Seamus, Brain Attending Unavailable Seamus, Brain Admitting Unavailable [facility] Primary Care Unavailable Seamus, Brain Attending Unavailable Seamus, Brain Admitting Unavailable [facility] Ad[facility] Attending Unavailable Darwin Jones Primary Care Unavailable No Pcp, No Pcp Primary Care Provider UnavailMYA Garza Attending Unavailable SEAMUS, BRAIN Attending Unavailable SEAMUS, BRAIN Attending Unavailable SEAMUS, BRAIN Attending Unavailable MYA FINCH Attending Unavailable SEAMUS, BRAIN Attending Unavailable SEAMUS, BRAIN Attending Unavailable SEAMUS, BRAIN Attending Unavailable Allergies Allergy Classification Reported Allergen(s) Allergy Type Date of Onset Reaction(s) Facility (6 sources) No Known Medication Allergies; Translations: [No Known Medication Allergies] Propensity to adverse reactions (disorder) [facility] Medications Current Medications Medication Drug Class(es) [...] tablet (2 sources) Opioid Agonist Start: 06-03-2021 [place] 325 mg-5 mg oral tablet 2 tab(s), [...] day(s), # 20 tab(s), Refills(s) 0, Pharmacy: [facility], 170.2, cm, 09/29/23 10:44:00 EST, Height/Length [...] day(s), # 28 cap(s), Refills(s) 0, Pharmacy: [facility], 170.2, cm, 03/22/23 20:14:00 EDT, Height/Length Dosing, 113.5, kg, 03/22/23 20:14:00 EDT, Weight Dosing Start Date: 03/22/23 Stop Date: 03/29/23 Status: Ordered Start: 07-03-2021 take 1 capsule by mo wah twice daily Keflex 500 mg Cap 500 mg = 1 cap(s), Oral, BID, # 10 cap(s), Refills(s) 0, Pharmacy: [facility], 170, cm, 06/27/21 10:56:00 EST, [...] Start: 08-25-2024 take 1 capsule by mo [facility] once daily Levothyroxine 100 mcg capsule [...] day(s), # 21 tab(s), Refills(s) 0, Pharmacy: [facility], 170.2, cm, 09/29/23 10:44:00 EST, Height/Length [...] omeprazole 20 mg delayed release oral capsule (20 sources) Proton Pump Inhibitor Start: 08-23-2024 End: [...] Apr, Active take 1 capsule by mo [facility] once daily omeprazole (PRILOSEC) 20 mg capsule Take 20 mg by mouth once daily. 0 Active Comment on above: Take 20 mg by mouth once daily. ondansetron 4 mg disintegrating oral tablet (13 sources) Serotonin-3 Receptor Antagonist Start: 03-27-20 End: 04-26-20 24 take 1 tablet by [...] Date: 02/18/22 Stop Date: 02/21/22 Status: Ordered Ear209-Utpnfmj Fumarate-Fa () 28-800 mg-mcg Tablet (20 sources) Start: 12-29-2020 Oih328-Rwajxjm Fumarate-Fa () 28-800 mg-mcg Tablet Active TAB PO December 29, 2020 3:43pm Start: 12-29-2020 End: 10-07-2023 Kkz238-Lrbgsqz Fumarate-Fa ( ) 28-800 mg-mcg Tablet Discontinued TAB PO December 28, 2020 11:00pm October 07, 2023 6:06pm Start: 12-29-2020 End: 10-07-2023 Wsk771-Yjjqoin Fumarate-Fa ( ) 28-800 mg-mcg Tablet Discontinued TAB PO December 29, 2020 12:00am October 07, 2023 7:06pm Start: 12-29-2020 Tme394-Pfsszif Fumarate-Fa () 28-800 mg-mcg Tablet Active TAB PO December 28, 2020 11:00pm Start: 12-29-2020 Qnc409-Klruqzx Fumarate-Fa () 28-800 mg-mcg Tablet Active TAB PO December 29, 2020 12:00am pwifpp83-qyqg fum-folic ac-o m3 (One Daily ) (12 sources) Start: 08-25-2024 sbabiv79-krgm fum-folic ac-om3 (One Daily ) Active 1 PKG PO Daily August 25, 2024 12:10pm Start: 05-11-2024 End: 08-25-2024 leiwpa36-uems fum-folic ac-o m3 (One Daily ) Discontinued PO May 10, 2024 11:00pm August 25, 2024 12:11pm Start: 05-11-2024 koavcz62-oqjx fum-folic ac-om3 (One Daily ) Active PO May 10, 2024 11:00pm Start: 05-11-2024 fxtrka91-bosu fum-folic ac-om3 (One Daily ) Active PO May 11, 2024 12:00am MV-Min-Fe Fum-FA-DHA ( 1 PO) (20 sources) MV-Min- Fe Fum-FA-DHA ( 1 PO) Take 1 each by mouth Daily Active ob197-qdhc-ccuur acid ( 19) 29 mg iron- 1 mg tablet,chewable (2 sources) zg366-qeud-ewssv acid ( 19) 29 mg iron- 1 [...] source) Vitamin B12 cyanocobalamin/f olic acid (VITAMIN O80-TQQKR ACID) 1,000-400 mcg lozg Take by mouth [...] Start: 05-26-2023 take 1 capsule by mo [facility] every twenty-four hours Phentermine HCl 37.5 MG 1 capsule Orally Once a day for 30 days May, Active Comment on above: Take 37.5 mg by [facility]. Vitamin (14 sources) Vitamin OTC Not-Taking [...] without esophagitis] Onset: 4 Chronic Female infertility (5 sources) Female infertility; Translations: [Female infertility, unspecified] [...] ill-defined heart disease (8 sources) Cardiomegaly; Translations: [Mild left ventricular hypertrophy] Onset: 5 08-25-2024 Chronic Other and unspecified benign neoplasm (20 sources) Parathyroid adenoma; 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] Onset: 4 10-07-2023 Episodic Other circulatory disease (1 source) Personal history of other diseases of the circulatory system; Translations: [Personal history of other diseases of the circulatory system] Onset: 4 Episodic Other circulatory disease (6 sources) History of pericarditis; Translations: [Personal history of other diseases of the circulatory system] Onset: 4 2024 Episodic Other complications of ; puerperium affecting [...] EHR Cmte Other complications of (20 sources) Vomiting of , unspecified; Translations: [Unspecified [...] (1 source) Diarrhea; Translations: [Diarrhea, unspecified] Onset: 5 Episodic Other nutritional; endocrine; and metabolic disorders [...] second trimester] Onset: 4 06-12-2024 Episodic Other upper respiratory infections (1 source) Chronic sinusitis; Translations: [Chronic sinusitis, unspecified] Onset: Chronic Other upper respiratory infections (1 source) Acute pharyngitis, unspecified Episodic Residual codes; unclassified (2 sources) Gestation period, 18 weeks; Translations: [18 weeks gestation of ] 06-12-2024 Episodic Residual codes; unclassified (20 sources) Gestation period, 22 weeks; Translations: [22 weeks gestation of ] Onset: 4 07-11-2024 Episodic Residual codes; unclassified (1 source) 20 [...] [32 weeks gestation of ] 09-19-2024 Episodic Residual codes; unclassified (2 sources) Gestation period, 25 weeks; Translations: [25 weeks gestation of ] 07-31-2024 Episodic Residual codes; unclassified (2 sources) Gestation period, 35 weeks; Translations: [35 weeks gestation of ] 10-05-2024 Episodic Syncope (1 source) Syncope and collapse; Translations: [Syncope and collapse] Onset: 5 Episodic Thyroid disorders (20 sources) Hypothyroidism; Translations: [Hypothyroidism, unspecified] Onset: 2 Resolved: 2 Chronic Unclassified (19 sources) OB Reminders Onset: 4 06-28-2024 Unclassified [...] encounter status] Onset: 12-12-2022 04-20-2024 Episodic Other circulatory disease (1 source) Elevated blood-pressure reading without diagnosis of hypertension; Translations: [Elevated blood-pressure reading, without diagnosis of hypertension] 2024 Episodic Other complications of (3 sources) Hypothyroidism in ; Translations: [Endocrine, nutritional and metabolic diseases complicating , second trimester] Onset: 2024 2024 Episodic Other complications of (3 sources) History of pre-eclampsia; Translations: [Supervision of with other poor reproductive or obstetric history, unspecified trimester] Onset: 2024 2024 Episodic Other complications of (1 source) History of delivery of macrosomal ; Translations: [Supervision of with other poor reproductive or obstetric history, unspecified trimester] 2024 Episodic Other complications of (1 source) 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 ; Translations: [Other mental disorders complicating , unspecified trimester] 2024 Episodic Other female genital disorders (2 sources) Vaginal discharge; Translations: [Other specified noninflammatory disorders of vagina] 04-20-2024 Episodic Other gastrointestinal disorders (1 source) Dysphagia, pharyngeal phase Onset: 02-18-2022 Resolved: 02-18-2022 Episodic Other nutritional; endocrine; and metabolic disorders (1 source) Personal history of other endocrine, nutritional and metabolic disease; Translations: [Personal history of other endocrine, nutritional and metabolic disease] Onset: 05-24-2024 Episodic Other screening for suspected conditions (not mental disorders or infectious disease) (13 sources) Encounter for screening for malignant neoplasm of cervix; Translations: [Patient encounter status] Onset: 12-09-2022 Episodic Previous (3 sources) ; Translations: [Maternal care for unspecified type scar from previous delivery] Onset: 2024 2024 Episodic Residual codes; unclassified (2 sources) Gestation period, 20 weeks; Translations: [20 weeks gestation of ] 2024 Episodic Spondylosis; intervertebral disc disorders; other back problems (1 source) Backache; Translations: [Dorsalgia, unspecified] Onset: 03-22-2023 11-18-2023 Episodic Unclassified (2 sources) Never smoked tobacco; Translations: [Never a smoker] Unclassified (1 source) Cough R05.9 Unclassified (1 source) Mild concentric left ventricular hypertrophy (LVH) 07-31-2024 Results Test Name Value Interpretation Reference Range Facility OB BPP W NON-STRESS on 10-05-2024 [place] [address] Ultrasound Report Signed Patient: TAWNYA HERRING MR#: [id number] : 1995 Acct:[id number] Age/Sex: 29 / F ADM Date: Loc: [facility] 254-[address]: Brain Way D.O. Ordering Physician: Brain Way D.O. Date of Service: 10/04/24 Procedure(s): US OB BPP w non-stress Accession Number(s): [id number] cc: Darwin Jones BRIDGE RIGGER; Brain Way D.O. [place] [id number] Patient Name: TAWNYA HERRING MRN: [facility]:[id number] date: 1995 Sex: F Assigned Patient Location: [facility] Current Patient Location: [facility] Accession/Order Number: [id number] Exam Date: 10/05/2024 10:54 Report Date: 10/05/2024 10:58 At the request of: BRAIN WAY DO Procedure: US OB BPP w non-stress BIOPHYSICAL PROFILE: CLINICAL INFORMATION: decreased movement COMPARISON: 09/28/2024 There is a fetus in cephalic presentation. The reported gestational age is 35 weeks 0 days. The heart rate zuarhzqc813 beats per minute. FINDINGS: TONE: 1 or more episodes of activity extension and flexion of extremity or opening and closing of the hand [Y] 2/2 GROSS BODY MOVEMENTS: 3 or more discrete body or limb movements [Y] 2/2 BREATHING MOVEMENTS: 1 or more episodes of breathing lasting at least 30 seconds [Y] 2/2 LIEN: A single deepest vertical pocket of amniotic fluid greater than 2 cm [Y] 2/2 LIEN: 26.8cm . This is near the 95th percentile (5th to 95th percentile: 7.0 - 27.9) . Total score: 8/8 US/US OB BPP w non-stress IMPRESSION: NORMAL BIOPHYSICAL PROFILE. BORDERLINE POLYHYDRAMNIOS. Impression dictated by: Aleisha Tapia M.D.10/05/2024 10:58 AM Dictation Location: [place] [address] Electronically authenticated by: [id number] Y Date: 10/05/2024 10:58 Dictated By: Aleisha Tapia M.D. Signed By: 10/05/24 1239 DD/ 1058 TD/TT: Merchant Seaman: [facility] Radiology, Radiologi MD diane - 10/05/2024 [place] [address] Ultrasound Report Signed Patient: TAWNYA HERRING MR#: [id number] : 1995 Acct:[id number] Age/Sex: 29 / F ADM Date: Loc: [facility] 254-[address]: Brain Way D.O. Ordering Physician: Brain Way D.O. Date of Service: 10/04/24 Procedure(s): US OB BPP w non-stress Accession Number(s): [id number] cc: Darwin Jones BRIDGE RIGGER; Brain Way D.O. [place] [address] Patient Name: TAWNYA HERRING MRN: [facility]:[id number] date: 1995 Sex: F Assigned Patient Location: [facility] Current Patient Location: [facility] Accession/Order Number: [id number] Exam Date: 10/05/2024 10:54 Report Date: 10/05/2024 10:58 At the request of: BRAIN WAY DO Procedure: US OB BPP w non-stress BIOPHYSICAL PROFILE: CLINICAL INFORMATION: decreased movement COMPARISON: 09/28/2024 There is a fetus in cephalic presentation. The reported gestational age is 35 weeks 0 days. The heart rate koxrygkc986 beats per minute. FINDINGS: TONE: 1 or more episodes of activity extension and flexion of extremity or opening and closing of the hand [Y] 2/2 GROSS BODY MOVEMENTS: 3 or more discrete body or limb movements [Y] 2/2 BREATHING MOVEMENTS: 1 or more episodes of breathing lasting at least 30 seconds [Y] 2/2 LIEN: A single deepest vertical pocket of amniotic fluid greater than 2 cm [Y] 2/2 LIEN: 26.8cm . This is near the 95th percentile (5th to 95th percentile: 7.0 - 27.9) . Total score: 8/8 US/US OB BPP w non-stress IMPRESSION: NORMAL BIOPHYSICAL PROFILE. BORDERLINE POLYHYDRAMNIOS. Impression dictated by: Aleisha Tapia M.D.10/05/2024 10:58 AM Dictation Location: [place] [address] Electronically authenticated by: [id number] Y Date: 10/05/2024 10:58 Dictated By: Aleisha Tapia M.D. Signed By: 10/05/24 1239 DD/ 1058 TD/TT: Merchant Seaman: [facility] Radiology Study observation (narrative) [facility] US OB BPP W NON-STRESS Ordered By: Radiologist Radiology on 10-05-2024 [facility] Work Phone: Urinalysis macro (dipstick) panel (U)on 10-05-2024 Bilirubin, UA Negative Negative - 4(70) +++ mg/dL [facility] Blood, UA Negative Negative - 50 Dain/mcL [facility] Clarity, UA Clear [facility] Color, UA Yellow [facility] Glucose, UA Negative Negative - 2000(110) ++++ mg/dL [facility] Interpretation and review of laboratory results Abnormal [facility] Ketones, UA Negative Negative - 160(16) ++++ mg/dL [facility] Leukocytes, UA Positive Negative - 500+++ Chaparrita/mcL [facility] Comment on above: small Nitrite, UA Negative Negative - Positive [facility] pH, UA 7 5 - 9 [facility] Protein, UA Negative Negative - 2000(20) ++++ mg/dL [facility] Spec Grav, UA 1.02 1 - 1.03 [facility] Urobilinogen, UA 0.2 0.2 - 12 mg/dL [facility] US OB BPP W NON-STRESS on 09-29-2024 [place] [address] Ultrasound Report Signed Patient: TAWNYA HERRING MR#: [id number] : 1995 Acct:[id number] Age/Sex: 29 / F ADM Date: 09/28/24 Loc: US Attending Dr: Brain Way D.O. Ordering Physician: Brain Way D.O. Date of Service: 09/28/24 Procedure(s): US OB BPP w non-stress Accession Number(s): [id number] cc: Darwin Jones BRIDGE RIGGER; Brain Way D.O. [address] [address] Patient Name: TAWNYA HERRING MRN: [id number] date: 1995 Sex: F Assigned Patient Location: [facility] Current Patient Location: Accession/Order Number: [id number] Exam Date: 09/28/2024 19:56 Report Date: 09/29/2024 07:32 At the request of: BRAIN AWY Procedure: US OB BPP w non-stress EXAMINATION: [...] Harrington M.D. Signed By: 09/29/2434 DD/ TD/TT: Merchant Seaman: [facility] Radiology, Radiologi MD diane - 09/29/2024 [place] [address] Ultrasound Report Signed Patient: TAWNYA HERRING MR#: [id number] : 1995 Acct:[id number] Age/Sex: 29 / F ADM Date: 09/28/24 Loc: US Attending Dr: Brain Way D.O. Ordering Physician: Brain Way D.O. Date of Service: 09/28/24 Procedure(s): US OB BPP w non-stress Accession Number(s): [id number] cc: Darwin Jones BRIDGE RIGGER; Brain Way D.O. The [address] [address] Patient Name: TAWNYA HERRING MRN: [facility]:[id number] date: 1995 Sex: F Assigned Patient Location: [facility] Current Patient Location: Accession/Order Number: [id number] Exam Date: 09/28/2024 19:56 Report Date: 09/29/2024 [...] Harrington M.D. Signed By: 09/29/2434 DD/ TD/TT: Merchant Seaman: [facility] Radiology Study observation (narrative) [facility] US OB BPP W NON-STRESS Ordered By: Radiologist Radiology on 09-29-2024 [facility] Work Phone: US OB BPP W NON-STRESS on 09-22-2024 [place] [address] Ultrasound Report Signed Patient: TAWNYA HERRING MR#: [id number] : 1995 Acct:[id number] Age/Sex: 29 / F ADM Date: 09/22/24 Loc: [facility] 252-[address]: Brain Way D.O. Ordering Physician: Brain Way D.O. Date of Service: 09/22/24 Procedure(s): US OB BPP w non-stress Accession Number(s): [id number] cc: Darwin Jones BRIDGE RIGGER; Brain Way D.O. The [address] [address] Patient Name: TAWNYA HERRING MRN: [id number] date: 1995 Sex: F Assigned Patient Location: [facility] Current Patient Location: [facility] Accession/Order Number: [id number] Exam Date: 09/22/2024 11:07 Report Date: 09/22/2024 [...] Signed By: 09/22/24 1138 DD/ 1135 TD/TT: Merchant Seaman: [facility] Radiology, Radiologi MD diane - 09/22/2024 [place] [address] Ultrasound Report Signed Patient: TAWNYA HERRING MR#: [id number] : 1995 Acct:[id number] Age/Sex: 29 / F ADM Date: 09/22/24 Loc: [facility] 252-[address]: Brain Way D.O. Ordering Physician: Brain Way D.O. Date of Service: 09/22/24 Procedure(s): US OB BPP w non-stress Accession Number(s): [id number] cc: Darwin Jones BRIDGE RIGGER; Brain Way D.O. The [address] [address] Patient Name: TAWNYA HERRING MRN: [facility]:[id number] date: 1995 Sex: F Assigned Patient Location: [facility] Current Patient Location: [facility] Accession/Order Number: [id number] Exam Date: 09/22/2024 11:07 Report Date: 09/22/2024 [...] Signed By: 09/22/24 1138 DD/ 1135 TD/TT: Merchant Seaman: [facility] Radiology Study observation (narrative) [facility] US OB BPP W NON-STRESS Ordered By: Radiologist Radiology on 09-22-2024 [facility] Work Phone: Thyroid Stimulating Hormoneo n 09-21-2024 TSH Qn 2.52 m[IU]/L Normal 0.45-5.[address] [facility] Comment on above: Result Comment: PERF ORMED BY: [place] [address] PATHOLOGIST CAR CLEANER MIS SCHMIDT M.D. Performed By: #### T [facility] #### [address] Thyrotropin [Units/volume] i n Serum or PlasmaOrdered By: Brain Way on 09-21-2024 TSH Qn Thyrotropin [Units/v olume] in Serum or Plasma 0.45-5.33 [facility] Urinalysis macro (dipstick) panel (U)on 09-19-2024 Bilirubin, UA Positive Negative - 4(70) +++ mg/dL [facility] Comment on above: small Blood, UA Negative Negative - 50 Dain/mcL [facility] Clarity, UA Clear [facility] Color, UA Wendy [facility] Glucose, UA Negative Negative - 2000(110) ++++ mg/dL [facility] Interpretation and review of laboratory results Abnormal [facility] Ketones, UA Positive Negative - 160(16) ++++ mg/dL [facility] Comment on above: trace Leukocytes, UA Negative Negative - 500+++ Chaparrita/mcL [facility] Nitrite, UA Negative Negative - Positive [facility] pH, UA 6 5 - 9 [facility] Protein, UA Positive Negative - 2000(20) ++++ mg/dL [facility] [facility] Comment on above: 30 Spec Grav, UA 1.025 1 - 1.03 [facility] Urobilinogen, UA 1.0 0.2 - 12 mg/dL [facility] US OB BPP W NON-STRESS on 09-15-2024 [place] [address] Ultrasound Report Signed Patient: TAWNYA HERRING MR#: [id number] : 1995 Acct:[id number] Age/Sex: 29 / F ADM Date: 09/14/24 Loc: [facility] 254-[address]: Brain Way D.O. Ordering Physician: Brain Way D.O. Date of Service: 09/14/24 Procedure(s): US OB BPP w non-stress Accession Number(s): [id number] cc: Darwin Jones BRIDGE RIGGER; Brain Way D.O. The [place] [address] Patient Name: TAWNYA HERRING MRN: [id number] date: 1995 Sex: F Assigned Patient Location: US Current Patient Location: Accession/Order Number: [id number] Exam Date: 09/14/2024 19:57 Report Date: 09/15/2024 [...] M.D. Signed By: 09/15/24616 DD/ 4 TD/TT: Merchant Seaman: [facility] Radiology, Radiologi MD diane - 09/15/2024 [place] [address] Ultrasound Report Signed Patient: TAWNYA HERRING MR#: [id number] : 1995 Acct:[id number] Age/Sex: 29 / F ADM Date: 09/14/24 Loc: [facility] 254-[address]: Brain Way D.O. Ordering Physician: Brain Way D.O. Date of Service: 09/14/24 Procedure(s): US OB BPP w non-stress Accession Number(s): [id number] cc: Darwin Jones BRIDGE RIGGER; Brain Way D.O. The [place] [address] Patient Name: TAWNYA HERRING MRN: [facility]:[id number] date: 1995 Sex: F Assigned Patient Location: US Current Patient Location: Accession/Order Number: [id number] Exam Date: 09/14/2024 19:57 Report Date: 09/15/2024 [...] M.D. Signed By: 09/15/24616 DD/ 4 TD/TT: Merchant Seaman: [facility] Radiology Study observation (narrative) [facility] US OB BPP W NON-STRESS Ordered By: Radiologist Radiology on 09-15-2024 [facility] Work Phone: [facility] echo transthoracicon [facility] echo transthoracic [facility] [place] [address] Echocardiogram Signed Patient: Tawnya Shay MR#: [id number] 29 : 1995 Acct:[id number] Age/Sex: 29 / F ADM Date: 09/14/24 Loc: Room: Type: [facility] Attending Dr: Mary Ellen Bruce MD Ordering Provider: Mary Ellen Bruce MD Date of Service: 09/14/24 [facility] echo transthoracic: I51.7 - Cardiomegaly Copies to: [...] mmHg RAP systole: 5.0 mmHg Transcribed By: SCV Performed At: 09/14/24954 Signed By: Mary Ellen Bruce MD 09/14/24 1116 Normal [facility] Physician [facility] US OB GROWTHon 09-11-[address] [address] Ultrasound Report Signed Patient: TAWNYA HERRING MR#: [id number] : 1995 Acct:[id number] Age/Sex: 29 / F ADM Date: 09/11/24 Loc: US Attending Dr: Mya Finch Ordering Physician: Mya Finch Date of Service: 09/11/24 Procedure(s): US OB growth Accession Number(s): [id number] cc: Mya Finch; Darwin Jones NP [place] [id number] Patient Name: TAWNYA HERRING MRN: [id number] date: 1995 Sex: F Assigned Patient Location: US Current Patient Location: US Accession/Order Number: [id number] Exam Date: 09/11/2024 10:00 Report Date: 09/11/2024 [...] Signed By: 09/11/24 1111 DD/ 1108 TD/TT: Merchant Seaman: [facility] Radiology, Dilciaognoel contreras MD - 09/11/2024 [place] [address] Ultrasound Report Signed Patient: TAWNYA HERRING MR#: [id number] : 1995 Acct:[id number] Age/Sex: 29 / F ADM Date: 09/11/24 Loc: US Attending Dr: Mya Finch Ordering Physician: Mya Finch Date of Service: 09/11/24 Procedure(s): US OB growth Accession Number(s): [id number] cc: Mya Finch; Darwin Jones NP The [place] [id number] Patient Name: TAWNYA HERRING MRN: [facility]:[id number] date: 1995 Sex: F Assigned Patient Location: US Current Patient Location: US Accession/Order Number: [id number] Exam Date: 09/11/2024 10:00 Report Date: 09/11/2024 [...] Signed By: 09/11/24 1111 DD/ 1108 TD/TT: Merchant Seaman: [facility] Radiology Study observation (narrative) [facility] US OB GROWTHOrdered By: Halima ologleighton Radiology on 09-11-2024 [facility] Work Phone: Y Urineon 09-07-2024 Bacteria identified [...] Locations R1: This test was performed at: [facility], [address] [place] [address], [phone] , [place], Normal [facility] Comment on above: Performed By: #### 2 [id number] #### [facility] [address] [place] [address] Urinalysis macro (dipstick) panel (U)on 09-07-2024 Bilirubin, UA Negative Negative - 4(70) +++ mg/dL [facility] Blood, UA Negative Negative - 50 Dain/mcL [facility] Clarity, UA Clear [facility] Color, UA Yellow [facility] Glucose, UA Negative Negative - 2000(110) ++++ mg/dL [facility] Interpretation and review of laboratory results Normal [facility] Ketones, UA Negative Negative - 160(16) ++++ mg/dL [facility] Leukocytes, UA Negative Negative - 500+++ Chaparrita/mcL [facility] Nitrite, UA Negative Negative - Positive [facility] pH, UA 8 5 - 9 [facility] Protein, UA Negative Negative - 1999(20) ++++ mg/dL [facility] Spec Grav, UA 1.015 1 - 1.03 [facility] Urobilinogen, UA 1.0 0.2 - 12 mg/dL [facility] ED Clinical Summaryon 2024 ED Clinical Summary ED Clinical Summary [place] [id number] ED Clinical Summary Person Information Name: TAWNYA HERRING [facility] Age: 29 Years : 1995 Sex: Female Language: Libyan PCP: DARWIN JONES CNP Marital Status: Single Phone: [phone] Visit Id: Visit Reason: Headache; HEADACHE, FALL [...] 09/06/2024 16:26:55 09/06/2024 16:26:55 09/06/2024 16:26:55 ADDRESS: [address] [place] [phone] PHYS DOC NOTES: MEDICAL INFORMATION: Prescriptions Given: [...] day. PATIENT EDUCATION INFORMATION: Instructions: Concussion, Adult, Hmbl-nx-Ldsc Follow up: With: Address: When: DARWIN JONES [address] [place] [address] [phone] Business (1) In 3 days 09/09/2024 Comments: Call to schedule a follow-up appointment with your primary care provider. Use Zofran as needed for nausea/vomiting. Return to the ED with any new or worsening symptoms. DIAGNOSIS: JEFFERSON (headache) Normal [facility] ED Note-Physicianon 09-06-19 ED Note-Physician ED Note-Physician [...] headache. She denies the use of any epqz-iik-jwvawkv medications for this. Patient denies any neck [...] [] Head CT not ordered by emergency day care teacher [] Head CT ordered for reasons other than trauma [] Patient is 18 or older, presenting with minor blunt head trauma. Head CT (including cosigned orders) was ordered by an emergency day care teacher for trauma because (select one or more):[SATISFIES MIPS PERFORMANCE]Reasons: [] Patient is 65 or older [] Patient GCS < 15 [] Patient has focal neurologic deficit [] Patient has severe headache [] Patient is vomiting [] Severe/dangerous mechanism of injury was identified(select one or more): []MVA with: patient ejection, of another passenger, rollover, speed > 40mph, airbag deployment, hire car driver or passenger on ATV or motorcycle [...] cosigned orders) was ordered by an emergency day care teacher for trauma, no indication specified.[DOES NOT SATISFY MIPS PERFORMANCE] Medical Decision Making Patient is a 29-year-old female with a history of anxiety who presents to the ED 30 weeks with complaints of a headache following a syncope episode from a seated position yesterday. Patient is hemodynamically st (more content not included)... Normal [facility] Comment on above: Result Comment: Elec tronically Signed By: Lashon Tee PA-C\.br\Date and Time Signed: 09/06/24 16:20 EST\.br\Electronically Co-Signed By: Lashon Tee PA-C\.br\Date and Time Co-Signed: 09/06/24 16:21 EST\.br\Electronically Co-Signed By: Flash Franco DO\.br\Date and Time Co-Signed: 09/06/24 19:47 EST ED Patient Summaryon 025 ED Patient Summary ED Patient Summary [place] [id number] Patient Discharge Instructions Person Information Name: TAWNYA HERRING Age: 29 Years Arrival Date: 09/06/2024 13:57:18 Discharge Diagnosis: JEFFERSON (headache) Primary Care Physician: DARWIN JONES CNP Provider Information Primary Provider: Flash Franco DO Advanced State Inspector:Lashon Tee PA-C The exam and treatment you received in the Emergency Department were for an urgent problem and are not intended as complete care. It is important that you follow up with a doctor, nurse practitioner, or physician???s assistant director of financial aid for ongoing care. If your symptoms become [...] Instructions: With: Address: When: DARWIN JONES [address] [phone] Business (1) In 3 days 09/09/2024 Comments: [...] participating provider. Patient Education Materials: Concussion, Adult, Eadv-bd-Bixu A MESSAGE TO ALL PATIENTS REGARDING OPIOIDS PRESCRIPTION OPIOIDS: WHAT YOU NEED TO KNOW Prescription opioids can be used to help relieve rhqmsuxk-sj-gtikfa pain and are often prescribed following a [...] (www.fda.gov/Drugs/Resourc esForYou). (more content not included)... Normal [facility] BLOOD BANKOrdered By: Estefany Morillo on 09-05-2024 Fibronectin. Ql (Vag fld) Negative 1 (09/05/24 5:47 AM) Normal [facility] Man Sero Comment [...] Anion gap [Moles/Vol] 16 mmol/L Normal 6-16 [facility] Comment on above: Performed By: #### 2 [id number] #### [facility] [address] [place] [address] Calcium [Mass/Vol] 8.5 mg/dL Low 8.9-11.1 [facility] Comment on above: Performed By: #### 2 713404 #### [facility] [address] [place] [address] Chloride [Moles/Vol] 108 mmol/L Normal 101-111 [facility] Comment on above: Performed By: #### 2 285668 #### [facility] [address] [place] [address] CO2 [Moles/Vol] 17 mmol/L Low 21-31 [facility] Comment on above: Performed By: #### 2 249153 #### [facility] [address] [place] [address] Creatinine [Mass/Vol] 0.4 mg/dL Low 0.5-1.3 [facility] Comment on above: Performed By: #### 2 248332 #### [facility] [address] [place] [address] Glucose [Mass/Vol] 103 mg/dL Normal 55-199 [facility] Comment on above: Performed By: #### 2 892488 #### [facility] [address] [place] [address] Potassium [Moles/Vol] 3.6 mmol/L Normal 3.5-5.3 [facility] Comment on above: Performed By: #### 2 054183 #### [facility] [address] [place] [address] Sodium [Moles/Vol] 137 mmol/L Normal 135-145 [facility] Comment on above: Performed By: #### 2 892839 #### [facility] [address] [place] [address] Urea nitrogen [Mass/Vol] 9 mg/dL Normal 5-21 [facility] Comment on above: Performed By: #### 2 028910 #### [facility] [address] [place] [address] Urea nitrogen/Creatinine [Mass ratio] 22 No Units High 10-20 [facility] Comment on above: Performed By: #### 2 718861 #### [facility] [address] [place] [address] CBC w/ Auto Diffon 5 Basophils/100 WBC (Bld) 0.4 % Normal 0.0-2.0 [facility] Comment on above: Performed By: #### 2 594000 #### [facility] [address] [place] [address] Basophils/Leukocytes Auto (Bld) [Pure # fraction] 0.1 E9/L Normal 0.0-0.2 [facility] Comment on above: Performed By: #### 2 287672 #### [facility] [address] [place] [address] Eosinophils (Bld) [#/Vol] 0.0 E9/L Normal 0.0-0.5 [facility] Comment on above: Performed By: #### 2 630319 #### [facility] [address] [place] [address] Eosinophils/100 WBC (Bld) 0.3 % Normal 0.0-8.0 [facility] Comment on above: Performed By: #### 2 894598 #### [facility] [address] [place] [address] Erythrocyte distribution width (RBC) [Ratio] 12.7 % Normal 10.9-14.2 [facility] Comment on above: Performed By: #### 2 679480 #### [facility] [address] [place] [address] Hematocrit (Bld) [Volume fraction] 37.4 % Normal 34.0-46.0 [facility] Comment on above: Performed By: #### 2 403066 #### [facility] [address] [place] [address] Hemoglobin (Bld) [Mass/Vol] 13.2 g/dL Normal 12.0-16.0 [facility] Comment on above: Performed By: #### 2 239954 #### [facility] [address] [place] [address] Lymphocytes (Bld) [#/Vol] 1.1 E9/L Normal 1.0-4.0 [facility] Comment on above: Performed By: #### 2 127873 #### [facility] [address] [place] [address] Lymphocytes/100 WBC (Bld) 7.0 % Low 14.0-50.0 [facility] Comment on above: Performed By: #### 2 094888 #### [facility] [address] [place] [address] MCH (RBC) [Entitic mass] 33.0 pg Normal 27.0-34.0 [facility] Comment on above: Performed By: #### 2 498370 #### [facility] [address] [place] [address] MCHC (RBC) [Mass/Vol] 35.4 g/dL Normal 31.4-36.0 [facility] Comment on above: Performed By: #### 2 [id number] #### [facility] [address] [place] [address] MCV (RBC) [Entitic vol] 93.3 fL Normal 80.0-100.0 [facility] Comment on above: Performed By: #### 2 282639 #### [facility] [address] [place] [address] Monocytes (Bld) [#/Vol] 0.7 E9/L Normal 0.2-1.0 [facility] Comment on above: Performed By: #### 2 011332 #### [facility] [address] [place] [address] Neutrophils (Bld) [#/Vol] 13.7 E9/L High 2.0-7.5 [facility] Comment on above: Performed By: #### 2 938617 #### [facility] [address] [place] [address] Neutrophils/100 WBC (Bld) 87.6 % High 36.0-75.0 [facility] Comment on above: Performed By: #### 2 768164 #### [facility] [address] [place] [address] Platelet 324.0 E9/L Normal 150.0-500. 0 [facility] Comment on above: Performed By: #### 2 749814 #### [facility] [address] [place] [address] Platelet mean volume (Bld) [Entitic vol] 8.3 fL Normal 6.4-10.8 [facility] Comment on above: Performed By: #### 2 855910 #### [facility] [address] [place] [address] RBC (Bld) [#/Vol] 4.0 E12/L Low 4.3-5.9 [facility] Comment on above: Performed By: #### 2 822157 #### [facility] [address] [place] [address] WBC corrected for nucl RBC Auto (Bld) [#/Vol] 15.6 E9/L High 4.0-11.0 [facility] Comment on above: Performed By: #### 2 428985 #### [facility] [address] [place] [address] CHEMISTRYOrdered By: SYSTEM SYSTEM on 09-05-2024 Albumin [...] Sensitivity Troponin I Instructions For Use, Nathen Christoval, March 2018) Urea nitrogen [Mass/Vol] 9 mg/dL Normal 5 - 21 mg/dL Rem[facility] Chem Urea nitrogen/Creatinine [Mass ratio] 22 mg/mg High 10 - 20 [facility] ED Clinical Summaryon 2024 ED Clinical Summary ED Clinical Summary [place] [id number] ED Clinical Summary Person Information Name: TAWNYA HERRING [facility] Age: 29 Years : 1995 Sex: Female Language: Libyan PCP: DARWIN JONES CNP Marital Status: Single Phone: [phone] Visit Id: Visit Reason: Abdominal pain - ; Vomiting - ; Syncope/Near syncope; PASSED OUT HIT HEAD,NAUSEA DIARRHEA VOMITING 30 WKS PREG Speciality: Acuity: 2 Enc Type: Emergency Med Service: Emergency Arrival: 09/05/2024 03:02:46 Discharge: LOS: 000 01:33 Checkin: 09/05/2024 03:02:46 Checkout: 09/05/2024 04:35:45 Dispo Type: Admitted as IP to this [facility] EVENTS: Event Name Event [...] 09/05/2024 04:35:45 09/05/2024 04:35:45 09/05/2024 04:35:45 ADDRESS: [address] [place] [phone] [facility] DOC NOTES: MEDICAL INFORMATION: Prescriptions Given: Medications to Continue with No Changes Other Medications citalopram (CeleXA 20 mg Tab) 1 Tablets By Mouth every day. PATIENT EDUCATION INFORMATION: Instructions: Syncope, Adult, Xueb-of-Nhbc; Nausea and Vomiting, Adult, Xukc-bl-Fcce; Diarrhea, Adult, Mvuw-if-Pfse; Dehydration, Adult, Fwlk-xp-Xpkb Follow up: With: Address: When: DARWIN LARA[address] [place] [phone] Business (1) In 3 days 09/08/2024 Comments: Please follow-up with Dr. Way for further evaluation management. Please return to the ED for any new or worsening symptoms. DIAGNOSIS: Dehydration; Diarrhea, unspecified; Nausea, vomiting, and diarrhea; Syncope Normal [facility] ED Note-Nursingon 09-05-2024 ED Note-Nursing ED Note-Nursing OB at bedside Normal [facility] ED Note-Physicianon 09-05-19 ED Note-Physician ED Note-Physician [...] and Complexity of Problems Differential Diagnosis: [] [facility] Data External documents reviewed: [] My [...] Dayna 50 mL [F] 50 mL + zzbcuo64Vogvqhjfv [F] 25 mg, IV Piggyback Disposition Plan [...] Use, 03/12/2020 (more content not included)... Normal [facility] Comment on above: Result Comment: Elec tronically Signed By: Gabriel Curtis DO\.br\Date and Time Signed: 09/05/24 04:22 EST ED Patient Summaryon 025 ED Patient Summary ED Patient Summary [address] [address] Patient Discharge Instructions Person Information Name: TAWNYA HERRING Age: 29 Years Arrival Date: 09/05/2024 03:02:46 Discharge Diagnosis: Dehydration; Diarrhea, unspecified; Nausea, vomiting, and diarrhea; Syncope Primary Care Physician: DARWIN JONES CNP Provider Information Primary Provider: Gabriel Curtis DO Advanced State Inspector:None The exam and treatment you received in the Emergency Department were for an urgent problem and are not intended as complete care. It is important that you follow up with a doctor, nurse practitioner, or physician???s assistant director of financial aid for ongoing care. If your symptoms become worse or you do not improve as expected and you are unable to reach your usual health care provider, you should return to the Emergency Department. We are available 24 hours a day. TAWNYA HERRING has been given the following list of patient education materials, prescriptions and follow-up instructions: Follow-up Instructions: With: Address: When: DARWIN JONES [facility] [phone] Business (1) In 3 days 09/08/2024 Comments: Please follow-up with Dr. Way for further evaluation management. Please return to the ED for any new or worsening symptoms. In the event that this physician does not participate in your insurance network, please consult with your insurance company to find a nearby participating provider. Patient Education Materials: Syncope, Adult, Xxzf-fw-Tlfe; Nausea and Vomiting, Adult, Huln-eb-Gprb; Diarrhea, Adult, Wdxl-fi-Szgb; Dehydration, Adult, Kqmc-jc-Dclo A MESSAGE TO ALL PATIENTS REGARDING OPIOIDS PRESCRIPTION OPIOIDS: WHAT YOU NEED TO KNOW Prescription opioids can be used to help relieve fayhoyyq-oh-aeohux pain and are often prescribed following a [...] down t (more content not included)... Normal [facility] Extra Blueon 09-05-2024 Tube Collected Plasma Yes Invalid Interpretation Code [facility] Comment on above: Performed By: #### 1 [id number] #### [facility] [address] [place] [address] FFNon 09-05-2024 Fibronectin. Ql (Vag fld) Negative Normal [facility] Comment on above: Result Comment: In S [...] the antibody-antigen reaction. Performed By: #### 1 [id number] #### [facility] [address] [place] [address] HEMATOLOGYOrdered By: SYSTEM SYSTEM on 09-05-2024 Basophils/100 [...] 09-05-2024 Albumin [Mass/Vol] 3.8 g/dL Normal 3.3-5.0 [facility] Comment on above: Performed By: #### 2 009496 #### [facility] [address] [place] [address] Albumin/Globulin (S) [Mass conc ratio] 1.5 Normal 1.1-2.2 [facility] Comment on above: Performed By: #### 2 417844 #### [facility] [address] [place] [address] ALP [Catalytic activity/Vol] 80 Int._Unit/L Normal 21-98 [facility] Comment on above: Performed By: #### 2 208142 #### [facility] [address] [place] [address] ALT No additional P-5'-P [Catalytic activity/Vol] 20 Int._Unit/L Normal 6-46 [facility] Comment on above: Performed By: #### 2 817394 #### [facility] [address] [place] [address] AST [Catalytic activity/Vol] 15 Int._Unit/L Normal 5-43 [facility] Comment on above: Performed By: #### 2 153707 #### [facility] [address] [place] [address] Bilirubin [Mass/Vol] 0.6 mg/dL Normal 0.0-1.1 [facility] Comment on above: Performed By: #### 2 044504 #### [facility] [address] [place] [address] Bilirubin.direct [Mass/Vol] 0.1 mg/dL Normal 0.0-0.4 [facility] Comment on above: Performed By: #### 2 303515 #### [facility] [address] [place] [address] Bilirubin.indirect [Mass or moles/Vol] 0.5 mg/dL Normal 0.1-0.9 [facility] Comment on above: Performed By: #### 2 897921 #### [facility] [address] [place] [address] Globulin (S) [Mass/Vol] 2.6 g/dL Normal 1.4-4.0 [facility] Comment on above: Performed By: #### 2 153614 #### [facility] [address] [place] [address] Protein [Mass/Vol] 6.4 g/dL Normal 6.0-7.8 [facility] Comment on above: Performed By: #### 2 306088 #### [facility] [address] [place] [address] Influenza A&B Agon 5 Influenzae A Ag Negative Normal Negative [facility] Comment on above: Performed By: #### 1 [id number] #### [facility] [address] [place] [address] Influenzae B Ag Negative Normal Negative [facility] Comment on above: Result Comment: Test sensitivity and specificity vary for age group, specimen type, antigen types, and prevalence of disease. Test results must be evaluated in conjunction with other clinical data available to the physician. Individuals who received nasally administered Influenza A vaccine may have positive test results up to 3 days after vaccination. Performed By: #### 1 [id number] #### [facility] [address] [place] [address] Inpatient Clinical Summaryon 09-05-2024 Inpatient Clinical Summary Inpatient Clinical Summary [address] [address] Clinical Summary Person Information Name: TAWNYA HERRING [facility] Age: 29 Years : 1995 Sex: Female PCP: DARWIN JONES CNP Marital Status: Single Phone: [phone] Race: White Ethnicity: Non- or Language: Libyan Visit Id: Visit Reason: Abdominal pain - ; Vomiting - ; Syncope/Near syncope; PASSED OUT HIT HEAD,NAUSEA DIARRHEA VOMITING 30 WKS PREG Speciality: Acuity: Obs Enc Type: Observation Med Service: Obstetrics Arrival: 09/05/2024 03:02:46 Discharge: 09/05/2024 15:50:00 Dispo Type: Home ([facility]) Address: [address] [place] [phone] Provider Notes: Diagnosis: Dehydration; Diarrhea, unspecified; Nausea, [...] range between ( 80.0 and 100.0 ) [place] Auto: 4.7 % -- Normal range between ( 4.0 and 14.0 ) MPV: 8.3 fL -- Normal range between ( 6.4 and 10.8 ) Neutro Auto: 87.6 % -- Normal range between ( 36.0 and 75.0 ) Platelet: 324.0 E9/L -- Normal range between ( 150.0 and 500.0 ) WBC: 15.6 E9/L -- Normal range between ( 4.0 and 11.0 ) [place] Absolute: 0.7 E9/L -- Normal range between [...] 38.19 kg/m2 (more content not included)... Normal [facility] Inpatient Patient Summaryon 09-05-2024 Inpatient Patient Summary Inpatient Patient Summary [address] [address] Patient Discharge Instructions PERSON INFORMATION Name: TAWNYA HERRING Date of : 1995 Current Date: 09/05/2024 16:15:55 PHYSICIANS Admitting Physician: Rogelio Nath MD Primary Care Physician: DARWIN JONES CNP PCP Phone Number: [phone] Comment: Discharge Diagnosis: Dehydration; Diarrhea, unspecified; Nausea, [...] Follow up: With: Address: When: Brain WAY [facility], [address] [facility] [place] [address] Business (1) In 2 days 09/07/2024 Comments: Call 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 Medicines ??? Take ojxp-ugl-clksupa and prescription medicines only as told by [...] ? Flexing (more content not included)... Normal [facility] Lipase Levelon 09-05-2024 Lipase [Catalytic activity/Vol] 18 U/L Normal 13-58 [facility] Comment on above: Performed By: #### 2 [id number] #### [facility] [address] [place] [address] MICRO OTHER TESTSOrdered By: Barrington Maxwell on 09-05-2024 Influenzae A Ag Negative (09/05/24 3:34 AM) Normal Negative [facility] Man Sero Influenzae B Ag Negative 3 (09/05/24 3:34 AM) Normal Negative [facility] Man Sero Comment [...] Troponin HS 2.70 pg/mL Low 10.10-27.1 0 [facility] Comment on above: Result Comment: The 95% CI (Confidence Interval) PPV (Positive Predictive Value) for myocardial infarction in females is 38 pg/mL, in males 51 pg/mL. The results should be used in conjunction with clinical conditions of myocardial infarction. (Access High Sensitivity Troponin I Instructions For Use, Nathen Christoval, March 2018) Performed By: #### 1 [id number] #### [facility] [address] [place] [address] UA with Cult Rflxon 09-05-19 25 Bacteria Auto Ql (U) Trace Normal Trace Fish er [facility] Comment on above: Performed By: #### 4 [id number] #### [facility] [address] [place] [address] Bilirubin Ql (U) 1+ mg/dL Abnormal Negative [facility] Comment on above: Performed By: #### 4 [id number] #### [facility] [address] [place] [address] Clarity (U) Turbid Abnormal Clear [facility] Comment on above: Performed By: #### 4 [id number] #### [facility] [address] [place] [address] Color (U) Dark-Yellow Abnormal Yellow [facility] Comment on above: Result Comment: Micr oscopic readings are only performed on those samples that meet specific criteria set forth by [facility]. Performed By: #### 4 [id number] #### [facility] [address] [place] [address] Epithelial cells.squamous Auto (Urine sed) [#/Area] 5-8 Invalid Interpretation Code [facility] Comment on above: Performed By: #### 4 [id number] #### [facility] [address] [place] [address] Glucose Ql (U) Trace Abnormal Negative [facility] Comment on above: Performed By: #### 4 [id number] #### [facility] [address] [place] [address] Hemoglobin Auto test strip (U) [Mass/Vol] Negative Normal Negative [facility] Comment on above: Performed By: #### 4 [id number] #### [facility] [address] [place] [address] Ketones Auto test strip Ql (U) 1+ mg/dL Abnormal Negative [facility] Comment on above: Performed By: #### 4 [id number] #### [facility] [address] [place] [address] Leukocyte esterase Auto test strip Ql (U) 25 Chaparrita/uL Normal Negative [facility] Comment on above: Performed By: #### 4 [id number] #### [facility] [address] [place] [address] Mucus Auto Ql (U) 4+ [id number] Abnormal Negative [facility] Comment on above: Performed By: #### 4 [id number] #### [facility] [address] [place] [address] Nitrite Auto test strip Ql (U) 1+ mg/dL Abnormal Negative [facility] Comment on above: Performed By: #### 4 [id number] #### [facility] [address] [place] [address] pH (U) 5.5 [pH] Invalid Interpretation Code 5.0-9.0 [facility] Comment on above: Performed By: #### 4 [id number] #### [facility] [address] [place] [address] Protein Ql (U) 1+ mg/dL Abnormal Negative [facility] Comment on above: Performed By: #### 4 [id number] #### [facility] [address] [place] [address] RBC Ql (U) 0-3 Normal 0-3 [facility] Comment on above: Performed By: #### 4 [id number] #### [facility] [address] [place] [address] Specific gravity (U) [Rel density] 1.029 Invalid Interpretation Code 1.005-1.03 0 [facility] Comment on above: Performed By: #### 4 [id number] #### [facility] [address] [place] [address] Urobilinogen (U) [Mass/Vol] 2 mg/dL Abnormal Negative [facility] Comment on above: Performed By: #### 4 [id number] #### [facility] [address] [place] [address] WBC Auto (Urine sed) [#/Area] 0-5 Normal 0-5 [facility] Comment on above: Performed By: #### 4 [id number] #### [facility] [address] [place] [address] Type of Urine collection method Clean Catch Normal [facility] Comment on above: Performed By: #### 4 [id number] #### [facility] [address] [place] [address] URINALYSISOrdered By: SYSTEM SYSTEM on 09-05-2024 Bacteria [...] that meet specific criteria set forth by [facility]. Epithelial cells.squamous Auto (Urine sed) [#/Area] 5-8 graded/HPF Invalid Interpretation Code FT UA Auto SS Glucose Ql (U) Trace mg/dL Invalid Interpretation Code Negativemg /dL FT UA Auto SS Hemoglobin Auto test strip (U) [Mass/Vol] Negative Normal Negativemg /dL FT UA Auto SS Ketones Auto test [...] AM) Invalid Interpretation Code 5.0 - 9.0 [facility] UA Auto SS Protein Ql (U) 1+ mg/dL Invalid Interpretation Code Negativemg /dL FT UA Auto SS RBC Ql (U) 0-3 graded/HPF Normal 0-3graded/ HPF [facility] UA Auto SS Specific gravity (U) [Rel density] 1.029 *NA* (09/05/24 5:25 AM) Invalid Interpretation Code 1.005 - 1.030 [facility] UA Auto SS Urobilinogen (U) [Mass/Vol] 2 mg/dL Invalid Interpretation Code Negativemg /dL [facility] UA Auto SS WBC Auto (Urine sed) [#/Area] 0-5 graded/HPF Normal 0-5graded/ HPF [facility] UA Auto SS URINALYSISOrdered By: Rica Islas on 09-05-2024 UA Spec Desc Clean Catch (09/05/24 5:25 AM) Normal [facility] UA Auto SS eGFRon 09-05-2024 eGFR 138 mL/min/1.73 m2 Normal >=59 [facility] Comment on above: Performed By: #### 1 [id number] #### [facility] [address] [place] [address] ALL CBC WITH AUTO DIFFon BASOPHILS ABSOLUTE AUTO 0 [facility] Basophils/100 WBC (Bld) 0.2 % 0.2 - 2.0 % [facility] Eosinophils/100 WBC (Bld) 0.8 % Low 0.9 - 7.0 % [facility] Erythrocyte distribution width (RBC) [Ratio] 12.1 % 11.0 - 15.0 % [facility] Hematocrit (Bld) [Volume fraction] 33.9 % Low 36.0 - 48.0 % [facility] Hemoglobin (Bld) [Mass/Vol] 11.6 g/dL Low 12.0 - 16.0 g/dL [facility] IMMATURE GRANULOCYTES ABS AUTO 0.03 [facility] Immature granulocytes/100 WBC (Bld) 0.3 % 0.0 - 0.5 % [facility] Interpretation and review of laboratory results Abnormal [facility] LYMPHOCYTES ABSOLUTE AUTO 1.8 [facility] Lymphocytes/100 WBC (Bld) 19.8 % Low 20.5 - 60.0 % [facility] MCH (RBC) [Entitic mass] 32.9 pg 26.7 - 34.0 pg [facility] MCHC (RBC) [Mass/Vol] 34.2 g/dL 29.9 - 35.2 g/dL [facility] MCV (RBC) [Entitic vol] 96 fL 81.0 - 99.0 fL [facility] MONOCYTES ABSOLUTE AUTO 0.5 [facility] Monocytes/100 WBC (Bld) 5.4 % 1.7 - 12.0 % [facility] NEUTROPHILS ABSOLUTE AUTO 6.6 High [facility] Neutrophils/100 WBC (Bld) 73.5 % 43.0 - 75.0 % [facility] Platelet mean volume (Bld) [Entitic vol] 10.2 fL 9.5 - 13.5 fL [facility] TBH EO # 0.1 [facility] TBH PLT 287 [facility] RBC 3.53 Low [facility] TB WBC 9 [facility] Basophils Auto (Bld) [#/Vol] on 08-25-2024 Basophils (Bld) [#/Vol] Automated basophil count 0.0-0.1 [facility] Basophils/100 WBC Auto (Bld) on 08-25-2024 Basophils/100 WBC (Bld) Automated basophil % 0.2-2.0 [facility] Eosinophils/100 WBC Auto (Bl d)on 08-25-2024 Eosinophils/100 WBC (Bld) Automated eosinophil % Low 0.9-7.0 [facility] Erythrocyte distribution wid th Auto (RBC) [Ratio]on 08-25-2024 Erythrocyte distribution width (RBC) [Ratio] Erythrocyte distribution width [Ratio] by Automated count 11.0-15.0 [facility] FPG ECG *CARDIOLOGY ONLY*on 08-25-2024 FPG ECG *CARDIOLOGY ONLY* [facility] [place] [address] Electrocardiograph Report Signed Patient: Tawnya Herring MR#: [id number] 29 : 1995 Acct:[id number] Age/Sex: 29 / F ADM Date: 08/25/24 Loc: [facility] Room: Type: [facility] Attending Dr: Mary Ellen Bruce MD [...] Normal ECG Confirmed by Mary Ellen Bruce ([id number]) on 08/25/2024 1:42:57 PM Referred By: Electronically Signed By: Mary Ellen Bruce Transcribed By: MUS Signed By Mary Ellen Bruce MD 5 1342 Normal [facility] Hematocrit Auto (Bld) [Volum e fraction]on 08-25-2024 Hematocrit (Bld) [Volume fraction] Hematocrit [Volume Fraction] of Blood by Automated count Low 36.0-48.0 [facility] Hemoglobin [Mass/volume] in Bloodon 08-25-2024 Hemoglobin (Bld) [Mass/Vol] Hemoglobin [Mass/volume] in Blood Low 12.0-16.0 [facility] Laboratory - Chemistry and C hemistry - challengeon 08-25-2024 Glucose [Mass/Vol] 131 mg/dL High <[address] [facility] Laboratory - Hematology and Cell countson 08-25-2024 Immature granulocytes/100 WBC (Bld) 0.3 % 0.0-0.5 [facility] Leukocytes [#/volume] correc hamilton for nucleated erythrocytes in Blood by Automated counon 08-25-2024 WBC corrected for nucl RBC Auto (Bld) [#/Vol] Leukocytes [#/volume] corrected for nucleated erythrocytes in Blood by Automated coun 4.0-11.0 [facility] Lymphocytes Auto (Bld) [#/Vo l]on 08-25-2024 Lymphocytes (Bld) [#/Vol] Lymphocytes [#/volume] in Blood by Automated count 1.2-3.8 [facility] Lymphocytes/100 WBC Auto (Bl d)on 08-25-2024 Lymphocytes/100 WBC (Bld) Lymphocytes/100 leukocytes in Blood by Automated count Low 20.5-60.0 [facility] MCH Auto (RBC) [Entitic mass ]on 08-25-2024 MCH (RBC) [Entitic mass] MCH [Entitic mass] by Automated count 26.7-34.0 [facility] MCHC Auto (RBC) [Mass/Vol]on 08-25-2024 MCHC (RBC) [Mass/Vol] MCHC [Mass/volume] by Automated count 29.9-35.2 [facility] MCV Auto (RBC) [Entitic vol] on 08-25-2024 MCV (RBC) [Entitic vol] MCV [Entitic volume] by Automated count 81.0-99.0 [facility] Monocytes Auto (Bld) [#/Vol] on 08-25-2024 Monocytes (Bld) [#/Vol] Automated blood monocyte count 0.3-0.8 [facility] Monocytes/100 WBC Auto (Bld) on 08-25-2024 Monocytes/100 WBC (Bld) Automated monocyte % 1.7-12.0 [facility] Neutrophils Auto (Bld) [#/Vo l]on 08-25-2024 Neutrophils (Bld) [#/Vol] Neutrophils [#/volume] in Blood by Automated count High 1.4-6.5 [facility] Neutrophils/100 WBC Auto (Bl d)on 08-25-2024 Neutrophils/100 WBC (Bld) Automated neutrophil % 43.0-75.0 [facility] No Panel Informationon 08-25 Eosinophils # (Auto) 0.1 10 3/uL 0.0-0.7 [facility] Immature Granulocyte # (Auto) 0.03 10 3/uL 0.00-0.03 [facility] Platelet mean volume Auto (B ld) [Entitic vol]on 08-25-2024 Platelet mean volume (Bld) [Entitic vol] Platelet mean volume [Entitic volume] in Blood by Automated count 9.5-13.5 [facility] Platelets Auto (Bld) [#/Vol] on 08-25-2024 Platelets (Bld) [#/Vol] Platelets [#/volume] in Blood by Automated count 150-450 [facility] RBC Auto (Bld) [#/Vol]on RBC (Bld) [#/Vol] Erythrocytes [#/volu me] in Blood by Automated count Low 4.20-5.40 [facility] Urinalysis macro (dipstick) panel (U)on 08-23-2024 Bilirubin, UA Negative Negative - 4(70) +++ mg/dL [facility] Blood, UA Negative Negative - 50 Dain/mcL [facility] Clarity, UA Clear [facility] Color, UA Yellow [facility] Glucose, UA Negative Negative - 1999(110) ++++ mg/dL [facility] Interpretation and review of laboratory results Abnormal [facility] Ketones, UA Negative Negative - 160(16) ++++ mg/dL [facility] Leukocytes, UA Positive Negative - 500+++ Chaparrita/mcL [facility] Comment on above: small Nitrite, UA Negative Negative - Positive [facility] pH, UA 7 5 - 9 [facility] Protein, UA Negative Negative - 1999(20) ++++ mg/dL [facility] Spec Grav, UA 1.02 1 - 1.03 [facility] Urobilinogen, UA 0.2 0.2 - 12 mg/dL [facility] Thyroid Stimulating Hormoneo n 07-31-2024 TSH Qn 2.07 m[IU]/L Normal 0.45-5.[address] [facility] Comment on above: Result Comment: PERF ORMED BY: [facility] [address] [place] [id number] PATHOLOGIST CAR CLEANER MIS SCHMIDT M.D. Performed By: #### T SH3 ####[facility] [id number] [place] [address] [facility] Thyrotropin [Units/volume] i n Serum or PlasmaOrdered By: Brain Way on 07-31-2024 TSH Qn Thyrotropin [Units/v olume] in Serum or Plasma 0.45-5.33 [facility] Urinalysis macro (dipstick) panel (U)on 07-11-2024 Bilirubin, UA Negative Negative - 4(70) +++ mg/dL [facility] Blood, UA Negative Negative - 50 Dain/mcL [facility] Clarity, UA Clear [facility] Color, UA Yellow [facility] Glucose, UA Negative Negative - 1999(110) ++++ mg/dL [facility] Interpretation and review of laboratory results Abnormal [facility] Ketones, UA Negative Negative - 160(16) ++++ mg/dL [facility] Leukocytes, UA Trace Negative - 500+++ Chaparrita/mcL [facility] Nitrite, UA Negative Negative - Positive [facility] pH, UA 6 5 - 9 [facility] Protein, UA Negative Negative - 2000(20) ++++ mg/dL [facility] Spec Grav, UA 1.01 1 - 1.03 [facility] Urobilinogen, UA 0.2 0.2 - 12 mg/dL [facility] Alpha-fetoprotein (AFP) luis urement (cszwmlaf-hs-dliwcb)Ordered By: Brain Way on 06-28-2024 AFP [MoM] Alpha-fetoprotein (A FP) measurement (oylfsatt-zb-hqzswf) . [facility] Determination of gestational ageOrdered By: Brain Way on 06-28-2024 Gestational age Assess gestational age . [facility] Estimation of maternal age-s pecific risk of Down syndrome birthOrdered By: Brain Way on 06-28-2024 Age [Time] Estimation of matern al age-specific risk of Down syndrome . [facility] Human chorionic gonadotropin (hCG) multiple of median measurementOrdered By: Brain Way on 06-28-2024 HCG [MoM] Human chorionic gonadotropin (hCG) multiple of median measurement . [facility] Insulin dependent diabetes m ellitus detectionOrdered By: Brain Way on 06-28-2024 Insulin dependent diabetes mellitus Ql Insulin dependent diabetes mellitus detection . [facility] Interpretation of serum or p lasma second trimester quad maternal screen (narrative reOrdered By: Brain Way on 06-28-2024 Second trimester quad maternal screen Mathew [Interp] Interpretation of serum or plasma second trimester quad maternal screen (narrative re . [facility] Comment on above: Interpretation:An in terpretation CANNOT be provided for this patientbecause necessary patient information was not provided (oneor more of: gestational age, weight, or patient age).Please call us with new clinical information.Recalculations are not recommended when gestational datingby LMP and ultrasound are within 10 days. No Panel InformationOrdered By: Brain Way on 06-28-2024 AFP Triple Screen Comment Comment . [facility] Comment on above: Stephanie Pinto , Ph.D., DABCCDirectorReferences: Available Upon Request.Multiples Of Median Cutoffs Abbreviation Definitions For AFP Elevations IDD- Insulin Dep DiabetesSingleton 2.5 Black 2.8 OSBR- Open Spina BifidaIDD 2.0 Twins 4.5 RiskDSR Cutoff 1:270 DSR- Down Syndrome RiskT18 Cutoff 1:100 T18- Trisomy 18For further inquiries contact [employer] Servicesat [phone].This test was developed and its performance characteristicsdetermined by [employer]. It has not been cleared or approvedby the Food and Drug Administration.Performed at: [facility] [employer] [id number] [place], [place] [id number] Director: Aubrey Moreno [facility], Phone: [phone] Alpha Fetoprotein Results Received Report . [facility] Down Syndrome Age Equivalent See interpretation. . [facility] Gestational Age Calculation Method Ultrasound . [facility] Comment on above: 18:5 on 06/12/2024 Maternal Quad Test Risk See interpretation. . [facility] Maternal Race . [facility] Multiple No . [facility] Serum or plasma rjcjm-4-ebjf protein measurement (mass/volume)Ordered By: Brain Way on 06-28-2024 AFP [Mass/Vol] Serum or plasma jlirb-7-gwjqnsxguvg measurement (mass/volume) . [facility] Serum or plasma inhibin A me asurement (adjusted aqpqitrg-fi-mulxab)Ordered By: Brain Way on 06-28-2024 Inhibin A adjusted [MoM] Serum or plasma inhibin A measurement (adjusted anaebxir-gf-mecuje) . [facility] Serum or plasma inhibin A me asurement (mass/volume)Ordered By: Brain Way on 06-28-2024 Inhibin A [Mass/Vol] Inhibin A [Mass/vol ume] in Serum or Plasma . [facility] Serum or plasma total combin ed intact choriogonadotropin and beta subunit measurementOrdered By: Brain Way on 06-28-2024 HCG.intact+Beta subunit Qn Serum or plasma total combined intact choriogonadotropin and beta subunit measurement . [facility] Serum or plasma unconjugated estriol (E3) measurement (adjusted zhxfvjti-th-mezdqw)Ordered By: Brain Way on 06-28-2024 E3.unconjugated adjusted [MoM] Serum or plasma unconjugated estriol (E3) measurement (adjusted kejwefmg-yd-izptny) . [facility] Serum or plasma unconjugated estriol (E3) measurement (mass/volume)Ordered By: Brain Way on 06-28-2024 E3.unconjugated [Mass/Vol] Serum or plasma unconjugated estriol (E3) measurement (mass/volume) . [facility] Thyroid Stimulating Hormoneo n 06-28-2024 TSH Qn 3.44 m[IU]/L Normal 0.45-5.[address] [facility] Comment on above: Result Comment: PERF ORMED BY: [place] [address] PATHOLOGIST CAR CLEANER JORDI SMITH M.D. Performed By: #### T SH3 #### [address] Thyrotropin [Units/volume] i n Serum or PlasmaOrdered By: Brain Way on 06-28-2024 TSH Qn Thyrotropin [Units/v olume] in Serum or Plasma 0.45-5.33 [facility] Trisomy 21 risk determinatio n in fetusOrdered By: Brain Way on 06-28-2024 Trisomy 21 risk Qn (fetus) Trisomy 21 risk determination in fetus . [facility] US OB >= 14 weeks Fetuson US OB >= 14 weeks Fetus [facility] [place] [address] [place] [id number] Ultrasound Report Signed Patient: Tawnya Herring MR#: [id number] 29 : 1995 Acct:[id number] Age/Sex: 28 / F ADM Date: 06/22/24 Loc: Room: Type: [facility] Attending Dr: Brain Way DO Ordering [...] Norton Jr., D.O.06/22/2024 4:00 PM Dictation Location: AhalogyFORMERLY [facility]ITAL[facility] Tech: Rae De Paz Transcribed By: AGUILAR 06/22/24 1600 Dictated By: Zay Norton Jr, DO 06/22/24 1552 Signed By: 06/22/24 1600 Normal [facility] Urinalysis macro (dipstick) panel (U)on 06-12-2024 Bilirubin, UA Negative Negative - 4(70) +++ mg/dL [facility] Blood, UA Negative Negative - 50 Dain/mcL [facility] Clarity, UA Clear [facility] Color, UA Yellow [facility] Glucose, UA Negative Negative - 1999(110) ++++ mg/dL [facility] Interpretation and review of laboratory results Abnormal [facility] Ketones, UA Negative Negative - 160(16) ++++ mg/dL [facility] Leukocytes, UA Positive Negative - 500+++ Chaparrita/mcL [facility] Comment on above: small Nitrite, UA Negative Negative - Positive [facility] pH, UA 6 5 - 9 [facility] Protein, UA Negative Negative - 2000(20) ++++ mg/dL [facility] Spec Grav, UA 1.025 1 - 1.03 [facility] Urobilinogen, UA 1.0 0.2 - 12 mg/dL [facility] Thyrotropin [Units/volume] i n Serum or PlasmaOrdered By: Brain Way on 05-24-2024 TSH Qn 2.42 m[IU]/L Normal 0.45-5.33 [facility] Comment on above: Result Comment: PERF ORMED BY: [place] [address] PATHOLOGIST [employer] CLEANER JORDI SMITH M.D. Performed By: #### T SH3 #### [address] TSH Qn Thyrotropin [Units/v olume] in Serum or Plasma 0.45-5.33 [facility] Urinalysis macro (dipstick) panel (U)on 05-10-2024 Bilirubin, UA Negative Negative - 4(70) +++ mg/dL [facility] Blood, UA Negative Negative - 50 Dain/mcL [facility] Clarity, UA Clear [facility] Color, UA Yellow [facility] Glucose, UA Negative Negative - 1999(110) ++++ mg/dL [facility] Interpretation and review of laboratory results Normal [facility] Ketones, UA Negative Negative - 160(16) ++++ mg/dL [facility] Leukocytes, UA Negative Negative - 500+++ Chaparrita/mcL [facility] Nitrite, UA Negative Negative - Positive [facility] pH, UA 6.5 5 - 9 [facility] Protein, UA Negative Negative - 1999(20) ++++ mg/dL [facility] Spec Grav, UA 1.020 1 - 1.03 [facility] Urobilinogen, UA 1.0 0.2 - 12 mg/dL [facility] IGP,APTIMA HPV,AGE GDLNon AGE GDLN ACOG TESTING Note . [facility] Comment on above: TESTS RESULT FLAG UN ITS REF RANGE LAB Clinician Provided Cytology Information Source.............Cervix No. of containers..01 ThinPrep Vial Age Algo ACOG Mariel... FLAG LEGEND: L-Low Normal,H-High Normal,LL-Alert Low,HH-Alert High <-Panic Low,>-Panic High,A-Abnormal,AA-Critical Abnormal Performed at: 01 =G [facility] [address] [place] [place] [address] Christelle Galan MD, IGP, RFX APTIMA HPV ASCU Note . [facility] Comment on above: TESTS RESULT FLAG UN ITS REF RANGE LAB DIAGNOSIS: 02 NEGATIVE FOR INTRAEPITHELIAL LESION OR MALIGNANCY. Specimen adequacy: 02 Satisfactory for evaluation. Endocervical and/or squamous metaplastic cells (endocervical component) are present. Performed by: Sanjiv Ornelas, Landing Signal Officer . 02 Note: Note 02 The Pap [...] High,A-Abnormal,AA-Critical Abnormal Performed at: 02 [facility] [address] [place] [address] Christelle Galan MD, Performed at: = - [address] [id number] General Office Dispatcher: Christelle Galan MD, Phone: [phone] Performed at: [facility] [address] [id number] General Office Dispatcher: Christelle Galan MD, Phone: [phone] [facility] URETHRITIS/DISCHARGE PLUS VA GINITIS (HTRX)on 04-22-2024 ATOPOBIUM VAGINAE 0.000 [facility] ATOPOBIUM VAGINAE Not detected [facility] BVAB 2,3 (BACTERIAL VAGINOSIS ASSOCIATED BACTERIA 2, 3); MOBILUNCUS SPP 24.821 Abnormal [facility] BVAB 2,3 (BACTERIAL VAGINOSIS ASSOCIATED BACTERIA 2, 3); MOBILUNCUS SPP Detected Abnormal [facility] JANET ALBICANS, PARAPSILOSIS, TROPICALIS 0.000 [facility] JANET ALBICANS, PARAPSILOSIS, TROPICALIS Not detected [facility] JANET GLABRATA 0.000 [facility] JANET GLABRATA Not detected [facility] JANET KRUSEI 0.000 [facility] JANET KRUSEI Not detected [facility] CHLAMYDIA TRACHOMATIS 0.000 [facility] CHLAMYDIA TRACHOMATIS Not detected N [facility] GARDNERELLA VAGINALIS 0.000 [facility] GARDNERELLA VAGINALIS Not detected N [facility] Interpretation and review of laboratory results Abnormal [facility] MEGASPHAERA (TYPES 1, 2) 0.000 [facility] MEGASPHAERA (TYPES 1, 2) Not detected [facility] MYCOPLASMA GENITALIUM 0.000 [facility] MYCOPLASMA GENITALIUM Not detected N [facility] NEISSERIA GONORRHOEAE 0.000 [facility] NEISSERIA GONORRHOEAE Not detected N [facility] TRICHOMONAS VAGINALIS 0.000 [facility] TRICHOMONAS VAGINALIS Not detected N [facility] Urinalysis macro (dipstick) panel (U)on 04-20-2024 Bilirubin, UA Negative Negative - 4(70) +++ mg/dL [facility] Blood, UA Positive Negative - 50 Dain/mcL [facility] Comment on above: trace-intact Clarity, UA Clear [facility] Color, UA Yellow [facility] Glucose, UA Negative Negative - 2000(110) ++++ mg/dL [facility] Interpretation and review of laboratory results Abnormal [facility] Ketones, UA Negative Negative - 160(16) ++++ mg/dL [facility] Leukocytes, UA Trace Negative - 500+++ Chaparrita/mcL [facility] Nitrite, UA Negative Negative - Positive [facility] pH, UA 6.0 5 - 9 [facility] Protein, UA Negative Negative - 1999(20) ++++ mg/dL [facility] Spec Grav, UA 1.030 1 - 1.03 [facility] Urobilinogen, UA 0.2 0.2 - 12 mg/dL [facility] CBC without diffon Hematocrit (Bld) [Volume fraction] 37.3 % [facility] Hemoglobin (Bld) [Mass/Vol] 13.3 g/dL [facility] Rbc Mcv (Fl) By Automated Count 92.1 [facility] No Panel Informationon 04-13 [facility] Rubella IGG immune statuson 04-13-2024 Rubella immune IgG 1.33 [facility] Syphilis Total(Unknown Syphi lis Status)on 04-13-2024 Syphilis Non-Reactive [facility] TBH BOX TEST SENT OUTon 03-17 BOX TEST SENT OUT 04/13/24 [facility] Drug Screen, Urineon 024 Amphetamine/Methamphe tamine Negative [facility] Barbiturate Screen Urine Negative [facility] Benzodiazepine Screen, Urine Negative [facility] Cocaine Metabolite Negative [facility] Methadone,Meconium Negative [facility] Opiate Quantitative Urine Negative [facility] Oxycodone Negative [facility] Phencyclidine Negative [facility] Thc Marijuana, Urine Negative [facility] HCG ( test) Ql (U)o n 04-07-2024 Interpretation and review of laboratory results Abnormal [facility] Preg Test, Ur Positive [facility] Urinalysis macro (dipstick) panel (U)on 04-07-2024 Bilirubin, UA Negative Negative - 4(70) +++ mg/dL [facility] Blood, UA Negative Negative - 50 Dain/mcL [facility] Clarity, UA Clear [facility] Color, UA Yellow [facility] Glucose, UA Negative Negative - 1999(110) ++++ mg/dL [facility] Interpretation and review of laboratory results Abnormal [facility] Ketones, UA Negative Negative - 160(16) ++++ mg/dL [facility] Leukocytes, UA Positive Negative - 500+++ Chaparrita/mcL [facility] Comment on above: small Nitrite, UA Negative Negative - Positive [facility] pH, UA 7.0 5 - 9 [facility] Protein, UA Negative Negative - 1999(20) ++++ mg/dL [facility] Spec Grav, UA 1.025 1 - 1.03 [facility] Urobilinogen, UA 0.2 0.2 - 12 mg/dL [facility] Automated basophil %Ordered By: Addi Ortega on 04-06-2024 Basophils/100 WBC (Bld) 0.2 % Normal . [facility] Comment on above: Performed By: #### P ILLAR TSH, PILLAR LIPID, PILLAR CBC, PILLAR BMP #### [facility] [address] [place] [address] Automated basophil countOrde red By: Addi Ortega on 04-06-2024 Basophils (Bld) [#/Vol] 0.0 10*3/uL Normal 0.0-0.2 [facility] Comment on above: Result Comment: PERF ORMED BY: [address] [place] [address] PATHOLOGIST CAR CLEANER JORDI SMITH M.D. Performed By: #### P ILLAR TSH, PILLAR LIPID, PILLAR CBC, PILLAR BMP #### [facility] [address] [place] [address] Automated blood monocyte cou ntOrdered By: Addi Ortega on 04-06-2024 Monocytes (Bld) [#/Vol] 0.5 10*3/uL Normal 0.0-0.8 [facility] Comment on above: Performed By: #### P ILLAR TSH, PILLAR LIPID, PILLAR CBC, PILLAR BMP #### [facility] [address] [place] [address] Automated eosinophil %Ordere d By: Addi Ortega on 04-06-2024 Eosinophils/100 WBC (Bld) 0.5 % Normal . [facility] Comment on above: Performed By: #### P ILLAR TSH, PILLAR LIPID, PILLAR CBC, PILLAR BMP #### [facility] [address] Automated eosinophil countOr dered By: Addi Ortega on 04-06-2024 Eosinophils (Bld) [#/Vol] 0.0 10*3/uL Normal 0.0-0.45 [facility] Comment on above: Performed By: #### P ILLAR TSH, PILLAR LIPID, PILLAR CBC, PILLAR BMP #### [facility] [address] Automated monocyte %Ordered By: Addi Ortega on 04-06-2024 Monocytes/100 WBC (Bld) 5.6 % Normal . [facility] Comment on above: Performed By: #### P ILLAR TSH, PILLAR LIPID, PILLAR CBC, PILLAR BMP #### [address] Automated neutrophil %Ordere d By: Addi Ortega on 04-06-2024 Neutrophils/100 WBC (Bld) 64.9 % Normal . [facility] Comment on above: Performed By: #### P ILLAR TSH, PILLAR LIPID, PILLAR CBC, PILLAR BMP #### [facility] [address] Basophils Auto (Bld) [#/Vol] Ordered By: Addi Ortega on 04-06-2024 Basophils (Bld) [#/Vol] Automated basophil count 0.0-0.2 [facility] Basophils/100 WBC Auto (Bld) Ordered By: Addi Ortega on 04-06-2024 Basophils/100 WBC (Bld) Automated basophil % . [facility] Calcium [Mass/volume] in Ser um or PlasmaOrdered By: Addi Ortega on 04-06-2024 Calcium [Mass/Vol] 8.9 mg/dL Normal 8.6-10.[address] [facility] Comment on above: Performed By: #### P ILLAR TSH, PILLAR LIPID, PILLAR CBC, PILLAR BMP #### [facility] [address] [place] [address] [place] Calcium [Mass/Vol] Calcium [Mass/volume ] in Serum or Plasma 8.6-10.3 [facility] Carbon dioxide, total [Moles /volume] in Serum or PlasmaOrdered By: Addi Ortega on 04-06-2024 CO2 [Moles/Vol] 22.0 mmol/L Normal 21.0-31.0 [facility] Comment on above: Performed By: #### P ILLAR TSH, PILLAR LIPID, PILLAR CBC, PILLAR BMP #### [facility] [address] [place] [id number] [facility] CO2 [Moles/Vol] Carbon dioxide, tota l [Moles/volume] in Serum or Plasma 21.0-31.0 [facility] Chloride [Moles/volume] in S ghada or PlasmaOrdered By: Addi Ortega on 04-06-2024 Chloride [Moles/Vol] 106 mmol/L Normal 98-107 [facility] Comment on above: Performed By: #### P ILLAR TSH, PILLAR LIPID, PILLAR CBC, PILLAR BMP #### [facility] [address] [place] [id number] [place] Chloride [Moles/Vol] Chloride [Moles/vol ume] in Serum or Plasma 98-107 [facility] Cholesterol [Mass/volume] in Serum or PlasmaOrdered By: Addi Ortega on 04-06-2024 Cholesterol [Mass/Vol] 159 mg/dL Normal 140-200 [facility] Comment on above: Chol less than 200 m g/dl low riskChol 201-239 mg/dl borderline riskChol 240 mg/dl and greater high risk Result Comment: Chol less than 200 mg/dl low risk Chol 201-239 mg/dl borderline risk Chol 240 mg/dl and greater high risk Performed By: #### P ILLAR TSH, PILLAR LIPID, PILLAR CBC, PILLAR BMP #### [facility] [address] [place] [id number] [place] Cholesterol [Mass/Vol] Cholesterol [Mass/volume] in Serum or Plasma 140-200 [facility] Comment on above: Chol less than 200 m g/dl low riskChol 201-239 mg/dl borderline riskChol 240 mg/dl and greater high risk Cholesterol in HDL [Mass/vol ume] in Serum or PlasmaOrdered By: Addi Ortega on 04-06-2024 Cholesterol in HDL [Mass/Vol] Serum or plasma high density lipoprotein (HDL) cholesterol measurement [facility] Comment on above: HDL CHOL ATP-III CLA SSIFICATION Cardiovascular RiskHDL > or equal to 60 mg/dL LOWHDL < 40 mg/dL HIGH Cholesterol in LDL Calc [Mas s/Vol]Ordered By: Addi Ortega on 04-06-2024 Cholesterol in LDL [Mass/Vol] 95 mg/dL 0- [facility] Comment on above: LDL ATP III CLASSIFI CATIONLDL less than 100 mg/dL OptimalLDL 100-129 mg/dL Near or above optimalLDL 130-159 mg/dL Borderline highLDL 160-189 mg/dL HighLDL greater than 189 mg/dL Very high Cholesterol in LDL [Mass/Vol] Cholesterol in LDL [Mass/volume] in Serum or Plasma by calculation 0 [facility] Comment on above: LDL ATP III CLASSIFI CATIONLDL less than 100 mg/dL OptimalLDL 100-129 mg/dL Near or above optimalLDL 130-159 mg/dL Borderline highLDL 160-189 mg/dL HighLDL greater than 189 mg/dL Very high Cholesterol in VLDL Calc [Ma ss/Vol]Ordered By: Addi Ortega on 04-06-2024 Cholesterol in VLDL [Mass/Vol] 15 mg/dL [facility] Cholesterol in VLDL [Mass/Vol] Cholesterol in VLDL [Mass/volume] in Serum or Plasma by calculation [facility] Creatinine [Mass/volume] in Serum or PlasmaOrdered By: Addi Ortega on 04-06-2024 Creatinine [Mass/Vol] 0.44 mg/dL Low 0.60-1.20 [facility] Comment on above: Performed By: #### P ILLAR TSH, PILLAR LIPID, PILLAR CBC, PILLAR BMP #### [address] Creatinine [Mass/Vol] Creatinine [Mass/v olume] in Serum or Plasma Low 0.60-1.20 [facility] Employee Basic Metabolic Suero nargis 04-06-2024 GFR/1.73 sq M.predicted MDRD (S/P/Bld) [Vol rate/Area] mL/min/{1.73_m2} Normal [facility] Comment on above: Performed By: #### P ILLAR TSH, PILLAR LIPID, PILLAR CBC, PILLAR BMP #### [address] Employee Complete Blood Coun ton 04-06-2024 Mean Corpuscular HGB Conc 35.4 g/dL High 32.0-35.0 [facility] Comment on above: Performed By: #### P ILLAR TSH, PILLAR LIPID, PILLAR CBC, PILLAR BMP #### [address] NRBC% 0.0 /100{WBC} Normal 0-0.5 [facility] Comment on above: Performed By: #### P ILLAR TSH, PILLAR LIPID, PILLAR CBC, PILLAR BMP #### [address] Employee Lipid Profileon LDL Cholesterol,Calculate d 95 mg/dL Normal 0-100 [facility] Comment on above: Result Comment: LDL ATP III CLASSIFICATION LDL less than 100 mg/dL Optimal LDL 100-129 mg/dL Near or above optimal LDL 130-159 mg/dL Borderline high LDL 160-189 mg/dL High LDL greater than 189 mg/dL Very high Performed By: #### P ILLAR TSH, PILLAR LIPID, PILLAR CBC, PILLAR BMP #### [address] Triglyceride w/Reflex 79 mg/dL Normal 0-149 [facility] Comment on above: Result Comment: TRIG ATP III CLASSIFICATION TRIG less than 150 mg/dL Normal TRIG 150-199 mg/dL Borderline high TRIG 200-500 mg/dL High TRIG greater than 500 mg/dL Very high Standard traceable to the Center for Disease Conrtrol and Prevention (CDC) test method. Performed By: #### P ILLAR TSH, PILLAR LIPID, PILLAR CBC, PILLAR BMP #### [address] VLDL CHOLESTEROL 15 mg/dL Normal [facility] Comment on above: Performed By: #### P ILLAR TSH, PILLAR LIPID, PILLAR CBC, PILLAR BMP #### [facility] [address] [place] [address] Employee Thyroid Stim Hormon gokul 04-06-2024 Employee Thyroid Stim Hormone 2.72 u[iU]/mL Normal 0.45-5.33 [facility] Comment on above: Result Comment: PERF ORMED BY: [place] [address] PATHOLOGIST CAR CLEANER JORDI SMITH M.D. Performed By: #### P ILLAR TSH, PILLAR LIPID, PILLAR CBC, PILLAR BMP #### [facility] [address] [place] [address] Eosinophils Auto (Bld) [#/Vo l]Ordered By: Addi Ortega on 04-06-2024 Eosinophils (Bld) [#/Vol] Automated eosinophil count 0.0-0.45 [facility] Eosinophils/100 WBC Auto (Bl d)Ordered By: Addi Ortega on 04-06-2024 Eosinophils/100 WBC (Bld) Automated eosinophil % . [facility] Erythrocyte distribution wid th Auto (RBC) [Ratio]Ordered By: Addi Ortega on 04-06-2024 Erythrocyte distribution width (RBC) [Ratio] Erythrocyte distribution width [Ratio] by Automated count 11.9-15.3 [facility] Erythrocyte distribution wid th [Ratio] by Automated countOrdered By: Addi Ortega on 04-06-2024 Erythrocyte distribution width (RBC) [Ratio] 12.7 % Normal 11.9-15.3 [facility] Comment on above: Performed By: #### P ILLAR TSH, PILLAR LIPID, PILLAR CBC, PILLAR BMP #### [facility] [address] [place] [address] Erythrocytes [#/volume] in B lood by Automated countOrdered By: Addi Ortega on 04-06-2024 RBC (Bld) [#/Vol] 4.04 10*6/uL Normal 3.60-5.00 [facility] Comment on above: Performed By: #### P ILLAR TSH, PILLAR LIPID, PILLAR CBC, PILLAR BMP #### [facility] [address] [place] [address] [place] Glucose [Mass/volume] in Ser um or PlasmaOrdered By: Addi Ortega on 04-06-2024 Glucose [Mass/Vol] 82 mg/dL Normal 70-[address] [facility] Comment on above: Performed By: #### P ILLAR TSH, PILLAR LIPID, PILLAR CBC, PILLAR BMP #### [facility] [address] [place] [address] [place] Glucose [Mass/Vol] Glucose [Mass/volume ] in Serum or Plasma 70-100 [facility] Hematocrit Auto (Bld) [Volum e fraction]Ordered By: Addi Ortega on 04-06-2024 Hematocrit (Bld) [Volume fraction] Hematocrit [Volume Fraction] of Blood by Automated count 34.0-46.4 [facility] Hematocrit [Volume Fraction] of Blood by Automated countOrdered By: Addi Ortega on 04-06-2024 Hematocrit (Bld) [Volume fraction] 37.6 % Normal 34.0-46.4 [facility] Comment on above: Performed By: #### P ILLAR TSH, PILLAR LIPID, PILLAR CBC, PILLAR BMP #### [facility] [address] [place] [address] [place] Hemoglobin [Mass/volume] in BloodOrdered By: Addi Ortega on 04-06-2024 Hemoglobin (Bld) [Mass/Vol] 13.3 g/dL Normal 11.8-15.4 [facility] Comment on above: Performed By: #### P ILLAR TSH, PILLAR LIPID, PILLAR CBC, PILLAR BMP #### [facility] [address] [place] [address] [place] Hemoglobin (Bld) [Mass/Vol] Hemoglobin [Mass/volume] in Blood 11.8-15.4 [facility] Leukocytes [#/volume] correc hamilton for nucleated erythrocytes in Blood by Automated counOrdered By: Addi Ortega on 04-06-2024 WBC corrected for nucl RBC Auto (Bld) [#/Vol] 8.9 10*3/uL 3.8-11.6 [facility] WBC corrected for nucl RBC Auto (Bld) [#/Vol] Leukocytes [#/volume] corrected for nucleated erythrocytes in Blood by Automated coun 3.8-11.6 [facility] Leukocytes [#/volume] in Blo od by Automated countOrdered By: Addi Ortega on 04-06-2024 WBC (Bld) [#/Vol] 8.9 10*3/uL Normal 3.8-11.[address] [facility] Comment on above: Performed By: #### P ILLAR TSH, PILLAR LIPID, PILLAR CBC, PILLAR BMP #### [facility] [address] [place] [address] Lymphocytes Auto (Bld) [#/Vo l]Ordered By: Addi Ortega on 04-06-2024 Lymphocytes (Bld) [#/Vol] Lymphocytes [#/volume] in Blood by Automated count 1.00-4.8 [facility] Lymphocytes [#/volume] in Bl ood by Automated countOrdered By: Addi Ortega on 04-06-2024 Lymphocytes (Bld) [#/Vol] 2.5 10*3/uL Normal 1.00-4.8 [facility] Comment on above: Performed By: #### P ILLAR TSH, PILLAR LIPID, PILLAR CBC, PILLAR BMP #### [facility] [address] [place] [address] Lymphocytes/100 WBC Auto (Bl d)Ordered By: Addi Ortega on 04-06-2024 Lymphocytes/100 WBC (Bld) Lymphocytes/100 leukocytes in Blood by Automated count . [facility] Lymphocytes/100 leukocytes i n Blood by Automated countOrdered By: Addi Ortega on 04-06-2024 Lymphocytes/100 WBC (Bld) 28.8 % Normal . [facility] Comment on above: Performed By: #### P ILLAR TSH, PILLAR LIPID, PILLAR CBC, PILLAR BMP #### [facility] [address] [place] [address] MCH Auto (RBC) [Entitic mass ]Ordered By: Addi Ortega on 04-06-2024 MCH (RBC) [Entitic mass] MCH [Entitic mass] by Automated count 24.7-34.3 [facility] MCH [Entitic mass] by Automa hamilton countOrdered By: Addi Ortega on 04-06-2024 MCH (RBC) [Entitic mass] 32.9 pg Normal 24.7-34.3 [facility] Comment on above: Performed By: #### P ILLAR TSH, PILLAR LIPID, PILLAR CBC, PILLAR BMP #### [address] MCHC Auto (RBC) [Mass/Vol]Or dered By: Addi Ortega on 04-06-2024 MCHC (RBC) [Mass/Vol] 35.4 g/dL High 32.0-35.0 [facility] MCHC (RBC) [Mass/Vol] MCHC [Mass/volume] by Automated count High 32.0-35.0 [facility] MCV Auto (RBC) [Entitic vol] Ordered By: Addi Ortega on 04-06-2024 MCV (RBC) [Entitic vol] MCV [Entitic volume] by Automated count 80-100 [facility] MCV [Entitic volume] by Auto mated countOrdered By: Addi Ortega on 04-06-2024 MCV (RBC) [Entitic vol] 93.2 fL Normal 80-100 [facility] Comment on above: Performed By: #### P ILLAR TSH, PILLAR LIPID, PILLAR CBC, PILLAR BMP #### [facility] [address] [place] [address] Monocytes Auto (Bld) [#/Vol] Ordered By: Addi Ortega on 04-06-2024 Monocytes (Bld) [#/Vol] Automated blood monocyte count 0.0-0.8 [facility] Monocytes/100 WBC Auto (Bld) Ordered By: Addi Ortega on 04-06-2024 Monocytes/100 WBC (Bld) Automated monocyte % . [facility] Neutrophils Auto (Bld) [#/Vo l]Ordered By: Addi Ortega on 04-06-2024 Neutrophils (Bld) [#/Vol] Neutrophils [#/volume] in Blood by Automated count 1.8-7.7 [facility] Neutrophils [#/volume] in Bl ood by Automated countOrdered By: Addi Ortega on 04-06-2024 Neutrophils (Bld) [#/Vol] 5.8 10*3/uL Normal 1.8-7.7 [facility] Comment on above: Performed By: #### P ILLAR TSH, PILLAR LIPID, PILLAR CBC, PILLAR BMP #### [facility] [address] [place] [address] [place] Neutrophils/100 WBC Auto (Bl d)Ordered By: Addi Ortega on 04-06-2024 Neutrophils/100 WBC (Bld) Automated neutrophil % . [facility] No Panel InformationOrdered By: Addi Ortega on 04-06-2024 Estimated GFR (CKD-EPI) > 60.0 mL/Min [facility] Creatinine Clearance (Chem N/A [facility] Nucleated erythrocytes [Pres ence] in Blood by Automated countOrdered By: Addi Ortega on 04-06-2024 Nucleated RBC Auto Ql (Bld) 0.0 /100{WBC} 0-0.5 [facility] Nucleated RBC Auto Ql (Bld) Nucleated erythrocytes [Presence] in Blood by Automated count 0-0.5 [facility] Platelet mean volume Auto (B ld) [Entitic vol]Ordered By: Addi Ortega on 04-06-2024 Platelet mean volume (Bld) [Entitic vol] Platelet mean volume [Entitic volume] in Blood by Automated count 6.3-10.7 [facility] Platelet mean volume [Entiti c volume] in Blood by Automated countOrdered By: Addi Ortega on 04-06-2024 Platelet mean volume (Bld) [Entitic vol] 8.8 fL Normal 6.3-10.7 [facility] Comment on above: Performed By: #### P ILLAR TSH, PILLAR LIPID, PILLAR CBC, PILLAR BMP #### [facility] [address] [place] [address] [place] Platelets Auto (Bld) [#/Vol] Ordered By: Addi Ortega on 04-06-2024 Platelets (Bld) [#/Vol] Platelets [#/volume] in Blood by Automated count 150-450 [facility] Platelets [#/volume] in Bloo d by Automated countOrdered By: Addi Ortega on 04-06-2024 Platelets (Bld) [#/Vol] 274 10*3/uL Normal 150-450 [facility] Comment on above: Performed By: #### P ILLAR TSH, PILLAR LIPID, PILLAR CBC, PILLAR BMP #### [facility] [address] [place] [address] [place] Potassium [Moles/volume] in Serum or PlasmaOrdered By: Addi Ortega on 04-06-2024 Potassium [Moles/Vol] 4.0 mmol/L Normal 3.5-5.1 [facility] Comment on above: Performed By: #### P ILLAR TSH, PILLAR LIPID, PILLAR CBC, PILLAR BMP #### [facility] [address] [place] [address] [place] Potassium [Moles/Vol] Potassium [Moles/v olume] in Serum or Plasma 3.5-5.1 [facility] RBC Auto (Bld) [#/Vol]Ordere d By: Addi Ortega on 04-06-2024 RBC (Bld) [#/Vol] Erythrocytes [#/volu me] in Blood by Automated count 3.60-5.00 [facility] Serum or plasma anion gap de terminationOrdered By: Addi Ortega on 04-06-2024 Anion gap [Moles/Vol] 11.0 mmol/L Normal 6.0-15.0 [facility] Comment on above: Performed By: #### P ILLAR TSH, PILLAR LIPID, PILLAR CBC, PILLAR BMP #### [facility] [address] [place] [address] [place] Anion gap [Moles/Vol] Serum or plasma an ion gap determination 6.0-15.0 [facility] Serum or plasma high density lipoprotein (HDL) cholesterol measurementOrdered By: Addi Ortega on 04-06-2024 Cholesterol in HDL [Mass/Vol] 48 mg/dL Normal 23-92 [facility] Comment on above: HDL CHOL ATP-III CLA SSIFICATION Cardiovascular RiskHDL > or equal to 60 mg/dL LOWHDL < 40 mg/dL HIGH Result Comment: HDL CHOL ATP-III CLASSIFICATION Cardiovascular Risk HDL > or equal to 60 mg/dL LOW HDL < 40 mg/dL HIGH Performed By: #### P ILLAR TSH, PILLAR LIPID, PILLAR CBC, PILLAR BMP #### [facility] [address] Serum or plasma total choles terol/high density lipoprotein (HDL) cholesterol mass ratOrdered By: Addi Ortega on 04-06-2024 Cholesterol.total/Cho lesterol in HDL [Mass ratio] 3.3 {ratio} Normal <5.0 [facility] Comment on above: Performed By: #### P ILLAR TSH, PILLAR LIPID, PILLAR CBC, PILLAR BMP #### [facility] [address] Cholesterol.total/Cho lesterol in HDL [Mass ratio] Serum or plasma total cholesterol/high density lipoprotein (HDL) cholesterol mass rat <5.0 [facility] Sodium [Moles/volume] in Ser um or PlasmaOrdered By: Addi Ortega on 04-06-2024 Sodium [Moles/Vol] 135 mmol/L Low 136-[address] [facility] Comment on above: Performed By: #### P ILLAR TSH, PILLAR LIPID, PILLAR CBC, PILLAR BMP #### [facility] [address] Sodium [Moles/Vol] Sodium [Moles/volume ] in Serum or Plasma Low 136-145 [facility] Thyrotropin [Units/volume] i n Serum or PlasmaOrdered By: Addi Ortega on 04-06-2024 TSH Qn 2.72 m[IU]/L 0.45-5.33 [facility] TSH Qn Thyrotropin [Units/v olume] in Serum or Plasma 0.45-5.33 [facility] Triglyceride [Mass/volume] i n Serum or PlasmaOrdered By: Addi Ortega on 04-06-2024 Triglyceride [Mass/Vol] 79 mg/dL 0-149 [facility] Comment on above: TRIG ATP III CLASSIF ICATIONTRIG less than 150 mg/dL NormalTRIG 150-199 mg/dL Borderline highTRIG 200-500 mg/dL High TRIG greater than 500 mg/dL Very highStandard traceable to the Center for Disease Conrtrol and Prevention (CDC) test method. Triglyceride [Mass/Vol] Triglyceride [Mass/volume] in Serum or Plasma 0-149 [facility] Comment on above: TRIG ATP III CLASSIF ICATIONTRIG less than 150 mg/dL NormalTRIG 150-199 mg/dL Borderline highTRIG 200-500 mg/dL High TRIG greater than 500 mg/dL Very highStandard traceable to the Center for Disease Conrtrol and Prevention (CDC) test method. Urea nitrogen [Mass/volume] in Serum or PlasmaOrdered By: Addi Ortega on 04-06-2024 Urea nitrogen [Mass/Vol] 7 mg/dL Normal 03-09 [facility] Comment on above: Performed By: #### P ILLAR TSH, PILLAR LIPID, PILLAR CBC, PILLAR BMP #### [address] Urea nitrogen [Mass/Vol] Urea nitrogen [Mass/volume] in Serum or Plasma 03-09 [facility] WBC Auto (Bld) [#/Vol]Ordere d By: Addi Ortega on 04-06-2024 WBC (Bld) [#/Vol] Leukocytes [#/volume ] in Blood by Automated count 3.8-11.6 [facility] ED Note-Physicianon 03-20-20 ED Note-Physician ED [...] and Complexity of Problems Differential Diagnosis: [] [facility] Data External documents reviewed: [] My [...] with the patient. 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 Discussed return precautions. [...] Nath In 3 days 03/21/2024 EDT [address], [address] [place] [address]- Business (1) Additional Instructions: DARWIN JONES In 3 days [address] [facility] [place] [address] [phone] Business (1) Additional Instructions: Patient Education Threatened Miscarriage Subchorionic Hematoma Attestation Patient seen and evaluated by the physician assistant director of financial aid. Attending physician was present in the emergency department and supervised care. This visit was performed by both the physician and an APC. I performed all aspects of the MDM as documented. This report was transcribed using voice recognition software. Every effort was made to ensure accuracy, however, inadvertently computerized mechanical product design engineer mistakes may be present. Appropriate health (more content not included)... Normal [facility] Comment on above: Result Comment: Elec tronically Signed By: Hector Correa PA-C\.br\Date and Time Signed: 03/18/24 12:11 EDT\.br\Electronically Co-Signed By: [place]an [place] DO\.jaspal\Date and Time Co-Signed: 03/20/24 07:17 EDT ABO/Rhon 08-03-2024 ABO/Rh Negative Invalid Interpretation Code [facility] Comment on above: Performed By: #### 2 [id number] #### [facility] [address] [place] [address] BLOOD BANKOrdered By: Nikky Brennan on 03-18-2024 ABO/Rh Interp Negative Invalid Interpretation Code [facility] BB Subsection BMPon 03-18-2024 Anion gap [Moles/Vol] 12 mmol/L Normal 6-16 [facility] Comment on above: Performed By: #### 2 [id number] #### [facility] [address] [place] [address] Calcium [Mass/Vol] 9.2 mg/dL Normal 8.9-11.1 [facility] Comment on above: Performed By: #### 2 [id number] #### [facility] [address] [place] [address] Chloride [Moles/Vol] 105 mmol/L Normal 101-111 [facility] Comment on above: Performed By: #### 2 [id number] #### [facility] [address] [place] [address] CO2 [Moles/Vol] 23 mmol/L Normal 21-31 [facility] Comment on above: Performed By: #### 2 [id number] #### [facility] [address] [place] [address] Creatinine [Mass/Vol] 0.5 mg/dL Normal 0.5-1.3 [facility] Comment on above: Performed By: #### 2 [id number] #### [facility] [address] [place] [address] Glucose [Mass/Vol] 92 mg/dL Normal 55-199 [facility] Comment on above: Performed By: #### 2 [id number] #### [facility] [address] [place] [address] Potassium [Moles/Vol] 3.8 mmol/L Normal 3.5-5.3 [facility] Comment on above: Performed By: #### 2 [id number] #### [facility] [address] [place] [address] Sodium [Moles/Vol] 136 mmol/L Normal 135-145 [facility] Comment on above: Performed By: #### 2 095375 #### [facility] [address] [place] [address] Urea nitrogen [Mass/Vol] 9 mg/dL Normal 5-21 [facility] Comment on above: Performed By: #### 2 [id number] #### [facility] [address] [place] [address] Urea nitrogen/Creatinine [Mass ratio] 18 No Units Normal 10-20 [facility] Comment on above: Performed By: #### 2 [id number] #### [facility] [address] [place] [address] BhCG Quanton 03-18-2024 [place] [address] m[IU]/mL High 1-[address] [facility] Comment on above: Result Comment: 'F N ON < 1 - 3' ' 0.2 - 1 WEEK = 5 TO 50' ' 1 - 2 WEEKS = 50 - 500' ' 2 - 3 WEEKS = 100 - 5000' ' 3 - 4 WEEKS = 500 - 67210' ' 4 - 5 WEEKS = 1000 - 37045' ' 5 - 6 WEEKS = 60595 - 189035' ' 6 - 8 WEEKS = 05611 - 551372' ' 8 - 12 WEEKS = 49549 - 273226' Performed By: #### 2 [id number] #### [facility] [address] [place] [address] CBC w/ Auto Diffon 4 Basophils/100 WBC (Bld) 0.6 % Normal 0.0-2.0 [facility] Comment on above: Performed By: #### 2 [id number] #### [facility] [address] [place] [address] Basophils/Leukocytes Auto (Bld) [Pure # fraction] 0.0 E9/L Normal 0.0-0.2 [facility] Comment on above: Performed By: #### 2 949702 #### [facility] [address] [place] [address] Eosinophils (Bld) [#/Vol] 0.0 E9/L Normal 0.0-0.5 [facility] Comment on above: Performed By: #### 2 [id number] #### [facility] [address] [place] [address] Eosinophils/100 WBC (Bld) 0.5 % Normal 0.0-8.0 [facility] Comment on above: Performed By: #### 2 610141 #### [facility] [address] [place] [address] Erythrocyte distribution width (RBC) [Ratio] 12.5 % Normal 10.9-14.2 [facility] Comment on above: Performed By: #### 2 670090 #### [facility] [address] [place] [address] Hematocrit (Bld) [Volume fraction] 40.2 % Normal 34.0-46.0 [facility] Comment on above: Performed By: #### 2 020019 #### [facility] [address] [place] [address] Hemoglobin (Bld) [Mass/Vol] 13.8 g/dL Normal 12.0-16.0 [facility] Comment on above: Performed By: #### 2 713481 #### [facility] [address] [place] [address] Lymphocytes (Bld) [#/Vol] 2.4 E9/L Normal 1.0-4.0 [facility] Comment on above: Performed By: #### 2 105841 #### [facility] [address] [place] [address] Lymphocytes/100 WBC (Bld) 28.4 % Normal 14.0-50.0 [facility] Comment on above: Performed By: #### 2 123735 #### [facility] [address] [place] [address] MCH (RBC) [Entitic mass] 32.3 pg Normal 27.0-34.0 [facility] Comment on above: Performed By: #### 2 [id number] #### [facility] [address] [place] [address] MCHC (RBC) [Mass/Vol] 34.3 g/dL Normal 31.4-36.0 [facility] Comment on above: Performed By: #### 2 754681 #### [facility] [address] [place] [address] MCV (RBC) [Entitic vol] 94.2 fL Normal 80.0-100.0 [facility] Comment on above: Performed By: #### 2 110796 #### [facility] [address] [place] [address] Monocytes (Bld) [#/Vol] 0.4 E9/L Normal 0.2-1.0 [facility] Comment on above: Performed By: #### 2 554828 #### [facility] [address] [place] [address] Neutrophils (Bld) [#/Vol] 5.4 E9/L Normal 2.0-7.5 [facility] Comment on above: Performed By: #### 2 418430 #### [facility] [address] [place] [address] Neutrophils/100 WBC (Bld) 65.4 % Normal 36.0-75.0 [facility] Comment on above: Performed By: #### 2 674943 #### [facility] [address] [place] [address] Platelet mean volume (Bld) [Entitic vol] 8.5 fL Normal 6.4-10.8 [facility] Comment on above: Performed By: #### 2 791578 #### [facility] [address] [place] [address] Platelets (Bld) [#/Vol] 249.0 E9/L Normal 150.0-500. 0 [facility] Comment on above: Performed By: #### 2 633592 #### [facility] [address] [place] [address] RBC (Bld) [#/Vol] 4.3 E12/L Normal 4.3-5.9 [facility] Comment on above: Performed By: #### 2 179206 #### [facility] [address] [place] [address] WBC corrected for nucl RBC Auto (Bld) [#/Vol] 8.3 E9/L Normal 4.0-11.0 [facility] Comment on above: Performed By: #### 2 159020 #### [facility] [address] [place] [address] CHEMISTRYOrdered By: SYSTEM SYSTEM on 03-18-2024 Anion [...] 199 mg/[place] [address] m[IU]/mL High 1 - 3 mIU/mL [facility] Comment on above: Result Comment: 'F N ON < 1 - 3' ' 0.2 - 1 WEEK = 5 TO 50' ' 1 - 2 WEEKS = 50 - 500' ' 2 - 3 WEEKS = 100 - 5000' ' 3 - 4 WEEKS = 500 - 73794' ' 4 - 5 WEEKS = 1000 - 58161' ' 5 - 6 WEEKS = 17735 - 138499' ' 6 - 8 WEEKS = 69892 - 761086' ' 8 - 12 WEEKS = 59782 - 171188' Potassium [Moles/Vol] 3.8 mmol/L Normal 3.5 - 5.3 mmol/L [facility] Sodium [Moles/Vol] 136 mmol/L Normal 135 - 145 mmol/L [facility] Urea nitrogen [Mass/Vol] 9 mg/dL Normal 5 - 21 mg/dL [facility] Urea nitrogen/Creatinine [Mass ratio] 18 mg/mg Normal 10 - 20 [facility] ED Clinical Summaryon 2023 ED Clinical Summary ED Clinical Summary [place] [id number] ED Clinical Summary Person Information Name: TAWNYA HERRING [facility] Age: 28 Years : 1995 Sex: Female Language: Libyan PCP: DARWIN JONES CNP Marital Status: Single Phone: [phone] Visit Id: Visit Reason: Vaginal bleeding - [...] 03/18/2024 12:15:02 03/18/2024 12:15:02 03/18/2024 12:15:02 ADDRESS: [address] [place] [id number] PHYS DOC NOTES: MEDICAL INFORMATION: Prescriptions Given: Medications to Continue with No Changes Other Medications citalopram (CeleXA 20 mg Tab) 1 Tablets By Mouth every day. PATIENT EDUCATION INFORMATION: Instructions: Threatened Miscarriage; Subchorionic Hematoma Follow up: With: Address: When: [address], [facility] [address] [address] Business (1) In 3 days 03/21/2024 With: Address: When: DARWIN JONES [facility] [employer] [facility] [place] [phone] Business (1) In 3 days DIAGNOSIS: Subchorionic bleed; Threatened Normal [facility] ED Patient Summaryon 024 ED Patient Summary ED Patient Summary [address] [address] Patient Discharge Instructions Person Information Name: TAWNYA HERRING Age: 28 Years Arrival Date: 03/18/2024 08:06:19 Discharge Diagnosis: Subchorionic bleed; Threatened Primary Care Physician: DARWIN JONES CNP Provider Information Primary Provider: Toan Lake DO Advanced State Inspector:None The exam and treatment you received in the Emergency Department were for an urgent problem and are not intended as complete care. It is important that you follow up with a doctor, nurse practitioner, or physician?s assistant director of financial aid for ongoing care. If your symptoms become [...] Follow-up Instructions: With: Address: When: [address], [facility] [address], [place] [address] Business (1) In 3 days 03/21/2024 With: Address: When: DARWIN JONES [address] [place] [phone] Business (1) In 3 days In the event that this physician does not participate in your insurance network, please consult with your insurance company to find a nearby participating provider. Patient Education Materials: Threatened Miscarriage; Subchorionic Hematoma A MESSAGE TO ALL PATIENTS REGARDING OPIOIDS PRESCRIPTION OPIOIDS: WHAT YOU NEED TO KNOW Prescription opioids can be used to help relieve ldxshggk-hw-pxluji pain and are often prescribed following a [...] you be (more content not included)... Normal [facility] HEMATOLOGYOrdered By: SYSTEM SYSTEM on 03-18-2024 Basophils/100 [...] 24 Bilirubin Ql (U) Negative Normal Negative [facility] Comment on above: Performed By: #### 4 [id number] #### [facility] [address] [place] [address] Clarity (U) Clear Normal Clear [facility] Comment on above: Performed By: #### 4 [id number] #### [facility] [address] [place] [address] Color (U) Yellow Normal Yellow [facility] Comment on above: Result Comment: Micr oscopic readings are only performed on those samples that meet specific criteria set forth by [facility]. Performed By: #### 4 [id number] #### [facility] [address] [place] [address] Epithelial cells.squamous Auto (Urine sed) [#/Area] 0-2 Invalid Interpretation Code [facility] Comment on above: Performed By: #### 4 [id number] #### [facility] [address] [place] [address] Glucose Ql (U) Negative Normal Negative [facility] Comment on above: Performed By: #### 4 [id number] #### [facility] [address] [place] [address] Hemoglobin Auto test strip (U) [Mass/Vol] 3+ mg/dL Abnormal Negative [facility] Comment on above: Performed By: #### 4 [id number] #### [facility] [address] [place] [address] Ketones Auto test strip Ql (U) Negative Normal Negative [facility] Comment on above: Performed By: #### 4 [id number] #### [facility] [address] [place] [address] Leukocyte esterase Auto test strip Ql (U) 25 Chaparrita/uL Normal Negative [facility] Comment on above: Performed By: #### 4 [id number] #### [facility] [address] [place] [address] Mucus Auto Ql (U) Trace Normal Negative [facility] Comment on above: Performed By: #### 4 [id number] #### [facility] [address] [place] [address] Nitrite Auto test strip Ql (U) Negative Normal Negative [facility] Comment on above: Performed By: #### 4 [id number] #### [facility] [address] [place] [address] pH (U) 7.5 [pH] Invalid Interpretation Code 5.0-9.0 [facility] Comment on above: Performed By: #### 4 [id number] #### [facility] [address] [place] [address] Protein Ql (U) Trace Abnormal Negative [facility] Comment on above: Performed By: #### 4 [id number] #### [facility] [address] [place] [address] RBC Ql (U) 31-75 Abnormal 0-3 [facility] Comment on above: Performed By: #### 4 [id number] #### [facility] [address] [place] [address] Specific gravity (U) [Rel density] 1.023 Invalid Interpretation Code 1.005-1.03 0 [facility] Comment on above: Performed By: #### 4 [id number] #### [facility] [address] [place] [address] Urobilinogen (U) [Mass/Vol] Negative Normal Negative [facility] Comment on above: Performed By: #### 4 [id number] #### [facility] [address] [place] [address] WBC Auto (Urine sed) [#/Area] 0-5 Normal 0-5 [facility] Comment on above: Performed By: #### 4 [id number] #### [facility] [address] [place] [address] Type of Urine collection method Clean Catch Normal [facility] Comment on above: Performed By: #### 4 [id number] #### [facility] [address] [place] [address] URINALYSISOrdered By: SYSTEM SYSTEM on 03-18-2024 Bilirubin Ql (U) Negative Normal Negativemg /dL [facility] UA Auto SS Clarity (U) Clear (03/18/24 8:17 AM) Normal Clear [facility] UA Auto SS Color (U) Yellow 1 (03/18/24 8:17 AM) Normal Yellow [facility] UA Auto SS Comment on above: Interpretive Data: M icroscopic readings are only performed on those samples that meet specific criteria set forth by [facility]. Epithelial cells.squamous Auto (Urine sed) [#/Area] 0-2 graded/HPF Invalid Interpretation Code FT UA Auto SS Glucose Ql (U) Negative Normal Negativemg /dL [facility] UA Auto SS Hemoglobin Auto test strip (U) [Mass/Vol] 3+ mg/dL Invalid Interpretation Code Negativemg /dL [facility] UA Auto SS Ketones Auto test [...] Urobilinogen (U) [Mass/Vol] Negative Normal Negativemg /dL [facility] UA Auto SS WBC Auto (Urine sed) [#/Area] 0-5 graded/HPF Normal 0-5graded/ HPF [facility] UA Auto SS URINALYSISOrdered By: Hector quiroga on 03-18-2024 UA Spec Desc Clean Catch (03/18/24 8:17 AM) Normal [facility] UA Auto SS 1st Trimesteron 03-18-2024 US [...] intrauterine , with heart rate 125 bpm. [employer]-rump length 3.22 mm. Mean sac diameter 1.74 [...] Transabdominal Ultrasound Performed Transvaginal Ultrasound Performed Normal [facility] US Transvaginalon 03-18-2024 US Transvaginal Exam Date/Time: 03/18/2024 11:41 EDT Reason for Exam: Vaginal bleeding Report Please review ultrasound pelvis for ultrasound transvaginal report. Ordering Provider: Hector Correa FINAL REPORT Dictated: 03/18/2024 12:06 pm Luis Alfredo Bunch MD Signed (Electronic Signature): 03/18/2024 12:06 pm Signed by: Luis Alfredo Bunch MD Transcribed by: EDWIN Technologist: MARCOS Palma [facility] eGFRon 03-18-2024 eGFR 131 mL/min/1.73 m2 Normal >=59 [facility] Comment on above: Order Comment: Order added by Discern Expert. Performed By: #### 1 [id number] #### [facility] [address] [place] [address] Progesteroneon 02-24-2024 Progesterone 9.9 ng/mL Normal . [facility] Comment on above: Result Comment: Foll icular phase 0.1 - 0.9 Luteal phase 1.8 - 23.9 Ovulation phase 0.1 - 12.0 First trimester 11.0 - 44.3 Second trimester 25.4 - 83.3 Third trimester 58.7 - 214.0 Postmenopausal 0.0 - 0.1 Performed at: [address] [id number] General Office Dispatcher: Alexis Ashton PhD, Phone: [phone] PERFORMED BY: [facility] [address] [place] [address] PATHOLOGIST CAR CLEANER JORDI SMITH M.D. Performed By: #### P ANTHONY ####[facility] , Serum or plasma progesterone measurement (mass/volume)Ordered By: Brain Way on 02-24-2024 Progesterone [Mass/Vol] 9.9 ng/mL . [facility] Comment on above: Follicular phase 0.1 - 0.9 Luteal phase 1.8 - 23.9 Ovulation phase 0.1 - 12.0 First trimester 11.0 - 44.3 Second trimester 25.4 - 83.3 Third trimester 58.7 - 214.0 Postmenopausal 0.0 - 0.1Performed at: [facility] [address] [id number] Director: Alexis Ashton PhD, Phone: [phone] Progesteroneon 01-24-2024 Progesterone 8.5 ng/mL Normal . [facility] Comment on above: Result Comment: Foll icular phase 0.1 - 0.9 Luteal phase 1.8 - 23.9 Ovulation phase 0.1 - 12.0 First trimester 11.0 - 44.3 Second trimester 25.4 - 83.3 Third trimester 58.7 - 214.0 Postmenopausal 0.0 - 0.1 Performed at: [employer] [id number] General Office Dispatcher: Alexis Ashton PhD, Phone: [phone] PERFORMED BY: [facility] [address] [place] [address] PATHOLOGIST CAR CLEANER JORDI SMITH M.D. Performed By: #### P ANTHONY ####[facility] , Serum or plasma progesterone measurement (mass/volume)Ordered By: Brain Way on 01-24-2024 Progesterone [Mass/Vol] 8.5 ng/mL . [facility] Comment on above: Follicular phase 0.1 - 0.9 Luteal phase 1.8 - 23.9 Ovulation phase 0.1 - 12.0 First trimester 11.0 - 44.3 Second trimester 25.4 - 83.3 Third trimester 58.7 - 214.0 Postmenopausal 0.0 - 0.1Performed at: [employer] [id number] Director: Alexis Ashton PhD, Phone: [phone] Progesteroneon 12-27-2023 Progesterone 13.3 ng/mL Normal . [facility] Comment on above: Result Comment: Foll icular phase 0.1 - 0.9 Luteal phase 1.8 - 23.9 Ovulation phase 0.1 - 12.0 First trimester 11.0 - 44.3 Second trimester 25.4 - 83.3 Third trimester 58.7 - 214.0 Postmenopausal 0.0 - 0.1 Performed at: [address] [id number] General Office Dispatcher: Alexis Ashton PhD, Phone: [phone] PERFORMED BY: [place] [address] [place] [address] PATHOLOGIST CAR CLEANER JRODI SMITH M.D. Performed By: #### P ANTHONY ####[facility] , Serum or plasma progesterone measurement (mass/volume)Ordered By: Brain Way on 12-27-2023 Progesterone [Mass/Vol] 13.3 ng/mL . [facility] Comment on above: Follicular phase 0.1 - 0.9 Luteal phase 1.8 - 23.9 Ovulation phase 0.1 - 12.0 First trimester 11.0 - 44.3 Second trimester 25.4 - 83.3 Third trimester 58.7 - 214.0 Postmenopausal 0.0 - 0.1Performed at: [facility] [employer] [id number] Director: Alexis Ashton PhD, Phone: [phone] Progesteroneon 11-30-2023 Progesterone 16.9 ng/mL Normal . [facility] Comment on above: Result Comment: Foll icular phase 0.1 - 0.9 Luteal phase 1.8 - 23.9 Ovulation phase 0.1 - 12.0 First trimester 11.0 - 44.3 Second trimester 25.4 - 83.3 Third trimester 58.7 - 214.0 Postmenopausal 0.0 - 0.1 Performed at: [facility] [address] [place], [place] [id number] General Office Dispatcher: Alexis Ashton PhD, Phone: [phone] PERFORMED BY: [facility] [place] [address] PATHOLOGIST CAR CLEANER JORDI SMITH M.D. Performed By: #### P ANTHONY ####[facility] , Serum or plasma progesterone measurement (mass/volume)Ordered By: Brain Way on 11-30-2023 Progesterone [Mass/Vol] 16.9 ng/mL . [facility] Comment on above: Follicular phase 0.1 - 0.9 Luteal phase 1.8 - 23.9 Ovulation phase 0.1 - 12.0 First trimester 11.0 - 44.3 Second trimester 25.4 - 83.3 Third trimester 58.7 - 214.0 Postmenopausal 0.0 - 0.1Performed at: [facility] [facility] [id number] Director: Alexis Ashton PhD, Phone: [phone] Teresa 11-18-2023 CNOV Office Visit (ENDOMN ) -- TAWNYA HERRING ([id number]) 1995 F Date Time Provider Department 11/18/23 8:30 AM RUBY [place] During your visit today, we recorded the following information about you: Pulse Blood pressure Weight Last Period 100/minute 132/92 110.7 kg 11/09/23 Odalis Greene 11/18/2023 7:58 AM Signed Thank you for choosing the [facility] Department of Endocrinology, Diabetes and Metabolism. Did you know that you need to call 48 hours in advance of your scheduled visit, if you are unable to make your appointment? The [facility] [place] thanks you for your commitment, because patients not showing to their appointment results in a lost opportunity for patients to receive [facility] health care at the [facility]. To Cancel an appointment, please choose one of the following: - Call the Appointment Call Center at [phone] - From [employer], Go to Appointments - Cancel Appts If cancelling, consider your need to reschedule to prevent further delays in your care. To Schedule an appointment, please choose one of the following: - Call the Appointment Call Center at [phone] - From [employer] [employer], Go to Appointments - Request an Appt [...] as of 11/18/2023 - cyanocobalamin/folic acid (VITAMIN I15-ZSHOE ACID) 1,000-400 mcg lozg Take by mouth (more content not included)... Normal [facility] Progesteroneon 11-01-2023 Progesterone 7.1 ng/mL Normal . [facility] Comment on above: Result Comment: Foll icular phase 0.1 - 0.9 Luteal phase 1.8 - 23.9 Ovulation phase 0.1 - 12.0 First trimester 11.0 - 44.3 Second trimester 25.4 - 83.3 Third trimester 58.7 - 214.0 Postmenopausal 0.0 - 0.1 Performed at: [address] [id number] General Office Dispatcher: Alexis Ashton PhD, Phone: [phone] PERFORMED BY: [facility] [place] [address] PATHOLOGIST CAR CLEANER JORDI SMITH M.D. Performed By: #### P ANTHONY ####[facility] , Serum or plasma progesterone measurement (mass/volume)Ordered By: Brain Wya on 11-01-2023 Progesterone [Mass/Vol] 7.1 ng/mL . [facility] Comment on above: Follicular phase 0.1 - 0.9 Luteal phase 1.8 - 23.9 Ovulation phase 0.1 - 12.0 First trimester 11.0 - 44.3 Second trimester 25.4 - 83.3 Third trimester 58.7 - 214.0 Postmenopausal 0.0 - 0.1Performed at: [facility] [id number] Director: Alexis Ashton PhD, Phone: [phone] Serum or plasma progesterone measurement (mass/volume)Ordered By: Brain Way on 10-01-2023 Progesterone [Mass/Vol] 0.9 ng/mL . [facility] Comment on above: Follicular phase 0.1 - 0.9 Luteal phase 1.8 - 23.9 Ovulation phase 0.1 - 12.0 First trimester 11.0 - 44.3 Second trimester 25.4 - 83.3 Third trimester 58.7 - 214.0 Postmenopausal 0.0 - 0.1Performed at: [facility] [address] [id number] Director: Alexis Ashton PhD, Phone: [phone] Ambulatory Visit Summaryon 0 09-29-2023 Ambulatory Visit [...] JONES CNP When: Where: [address] [facility] [place] [address]- Medications What How Much When Why Instructions New amoxicillin-clavulanate (Augmentin 875 mg oral tablet) 1 Tablets By Mouth Every 12 hours Sinusitis BMI 38.0-38.9,adult Duration: 10 Days Pickup at [facility] New methylPREDNISolone (Medrol Dosepack 4 mg Tab) 1 Packets By Mouth As Directed Sinusitis BMI 38.0-38.9,adult Duration: 6 Days as directed on package labeling Pickup at [facility] Unchanged citalopram (CeleXA 20 mg Tab) 1 Tablets By Mouth Every day Contact prescribing physician if questions or concerns Unchanged citalopram (citalopram 20 mg Tab) Contact prescribing physician if questions or concerns Unchanged pyridoxine (Vitamin B6 100 mg Tab) By Mouth Every day Contact prescribing physician if questions or concerns Pharmacy Information [facility]: [address] [place] [id number] [phone] Allergies No Known Allergies No Known Medication [...] choosing us for your care. Louie [facility] Family Medicine Office/Clini c Noteon 09-29-2023 [...] with voice recognition software. Occasional wrong-word or ?ojwvd-x-uccv? substitutions may have occurred due to the [...] with improvement. She does not use any fmag-rre-tvrmodp Flonase and has not tried any other [...] day(s), # 20 tab(s), Refills(s) 0, Pharmacy: [facility], 170.2, cm, 09/29/23 10:44:00 EST, Height/Length Dosing, 112, kg, 09/29/23 10:44:00 EST, Weight Dosing methylPREDNISolone, = 1 packet(s), Oral, As Directed, as directed on package labeling, X 6 day(s), # 21 tab(s), Refills(s) 0, Pharmacy: [facility], 170.2, cm, 09/29/23 10:44:00 EST, Height/Length Dosing, 112, kg, 09/29/23 10:44:00 EST, Weight Dosing 2. BMI 38.0-38.9,adult (Z68.38: Body mass index [BMI] 38.0-38.9, adult) The standard range for ages 18 and olde (more content not included)... Normal [facility] Comment on above: Result Comment: Elec tronically [...] ? Medicines that treat allergies (antihistamines). ? Apbo-dby-ikkjlvi pain relievers. ? If caused by bacteria, [...] home: Medicines ? 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 ? Do not smoke. Avoid being around people who are smoking (secondhand smoke). ? Keep all follow-up visits. This is important. Contact a health care provider if: ? You have a fever. ? Your symptoms get (more content not included)... [facility] TAWNYA HERRING ([id number]) 1995 F Date Time Provider Department 07/16/23 [facility] During your visit today, we [...] by KENAN GOMEZ on 07/16/23 [facility] CNOVon 06-08-2023 CNOV Office Visit (OTOLLN ) -- TAWNYA HERRING ([id number]) 1995 F Date Time Provider Department 06/08/23 [...] will be in touch with results via ClearView™ Audio HPI: Tawnya is a 27 year old [...] Low Allergies (more content not included)... Normal [facility] Alanine aminotransferase [En zymatic activity/volume] in Serum or PlasmaOrdered By: Addi Ortega on 04-08-2023 ALT [Catalytic activity/Vol] 28 U/L 7-52 [facility] Albumin [Mass/volume] in Ser um or Plasma by Bromocresol green (BCG) dye binding methoOrdered By: Addi Ortega on 04-08-2023 Albumin BCG dye [Mass/Vol] 4.8 g/dL 3.5-5.7 [facility] Alkaline phosphatase [Enzyma tic activity/volume] in Serum or PlasmaOrdered By: Addi Ortega on 04-08-2023 ALP [Catalytic activity/Vol] 61 U/L 34-104 [facility] Aspartate aminotransferase [ Enzymatic activity/volume] in Serum or PlasmaOrdered By: Addi Ortega on 04-08-2023 AST [Catalytic activity/Vol] 13 U/L 13-39 [facility] Basophils Auto (Bld) [#/Vol] Ordered By: Addi Ortega on 04-08-2023 Basophils (Bld) [#/Vol] 0.0 10*3/uL 0.0-0.2 [facility] Basophils/100 WBC Auto (Bld) Ordered By: Addi Ortega on 04-08-2023 Basophils/100 WBC (Bld) 0.4 % . [facility] Bilirubin.total [Mass/volume ] in Serum or PlasmaOrdered By: Addi Ortega on 04-08-2023 Bilirubin [Mass/Vol] 0.4 mg/dL 0.3-1.0 [facility] Calcium [Mass/volume] in Ser um or PlasmaOrdered By: Addi Ortega on 04-08-2023 Calcium [Mass/Vol] 9.5 mg/dL 8.6-10.[address] [facility] Carbon dioxide, total [Moles /volume] in Serum or PlasmaOrdered By: Addi Ortega on 04-08-2023 CO2 [Moles/Vol] 25.4 mmol/L 21.0-31.0 [facility] Chloride [Moles/volume] in S ghada or PlasmaOrdered By: Addi Ortega on 04-08-2023 Chloride [Moles/Vol] 106 mmol/L 98-107 [facility] Cholesterol [Mass/volume] in Serum or PlasmaOrdered By: Addi Ortega on 04-08-2023 Cholesterol [Mass/Vol] 162 mg/dL 140-200 [facility] Comment on above: Chol less than 200 m g/dl low riskChol 201-239 mg/dl borderline riskChol 240 mg/dl and greater high risk Cholesterol in LDL Calc [Mas s/Vol]Ordered By: Addi Ortega on 04-08-2023 Cholesterol in LDL [Mass/Vol] 99 mg/dL 0-100 [facility] Comment on above: LDL ATP III CLASSIFI CATIONLDL less than 100 mg/dL OptimalLDL 100-129 mg/dL Near or above optimalLDL 130-159 mg/dL Borderline highLDL 160-189 mg/dL HighLDL greater than 189 mg/dL Very high Cholesterol in VLDL Calc [Ma ss/Vol]Ordered By: Addi Ortega on 04-08-2023 Cholesterol in VLDL [Mass/Vol] 18 mg/dL [facility] Creatinine [Mass/volume] in Serum or PlasmaOrdered By: Addi Ortega on 04-08-2023 Creatinine [Mass/Vol] 0.59 mg/dL 0.60-1.20 [facility] Eosinophils Auto (Bld) [#/Vo l]Ordered By: Addi Ortega on 04-08-2023 Eosinophils (Bld) [#/Vol] 0.1 10*3/uL 0.0-0.45 [facility] Eosinophils/100 WBC Auto (Bl d)Ordered By: Addi Ortega on 04-08-2023 Eosinophils/100 WBC (Bld) 1.3 % . [facility] Erythrocyte distribution wid th Auto (RBC) [Ratio]Ordered By: Addi Ortega on 04-08-2023 Erythrocyte distribution width (RBC) [Ratio] 12.6 % 11.9-15.3 [facility] Globulin Calc (S) [Mass/Vol] Ordered By: Addi Ortega on 04-08-2023 Globulin (S) [Mass/Vol] 2.7 g/dL [facility] Glucose [Mass/volume] in Ser um or PlasmaOrdered By: Addi Ortega on 04-08-2023 Glucose [Mass/Vol] 83 mg/dL 70-[address] [facility] Hematocrit Auto (Bld) [Volum e fraction]Ordered By: Addi Ortega on 04-08-2023 Hematocrit (Bld) [Volume fraction] 39.3 % 34.0-46.4 [facility] Hemoglobin [Mass/volume] in BloodOrdered By: Addi Ortega on 04-08-2023 Hemoglobin (Bld) [Mass/Vol] 13.6 g/dL 11.8-15.4 [facility] Leukocytes [#/volume] correc hamilton for nucleated erythrocytes in Blood by Automated counOrdered By: Addi Ortega on 04-08-2023 WBC corrected for nucl RBC Auto (Bld) [#/Vol] 7.6 10*3/uL 3.8-11.6 [facility] Lymphocytes Auto (Bld) [#/Vo l]Ordered By: Addi Ortega on 04-08-2023 Lymphocytes (Bld) [#/Vol] 2.9 10*3/uL 1.00-4.8 [facility] Lymphocytes/100 WBC Auto (Bl d)Ordered By: Addi Ortega on 04-08-2023 Lymphocytes/100 WBC (Bld) 38.6 % . [facility] MCH Auto (RBC) [Entitic mass ]Ordered By: Addi Ortega on 04-08-2023 MCH (RBC) [Entitic mass] 31.6 pg 24.7-34.3 [facility] MCHC Auto (RBC) [Mass/Vol]Or dered By: Addi Ortega on 04-08-2023 MCHC (RBC) [Mass/Vol] 34.5 g/dL 32.0-35.0 [facility] MCV Auto (RBC) [Entitic vol] Ordered By: Addi Ortega on 04-08-2023 MCV (RBC) [Entitic vol] 91.7 fL 80-100 [facility] Monocytes Auto (Bld) [#/Vol] Ordered By: Addi Ortega on 04-08-2023 Monocytes (Bld) [#/Vol] 0.4 10*3/uL 0.0-0.8 [facility] Monocytes/100 WBC Auto (Bld) Ordered By: Addi Ortega on 04-08-2023 Monocytes/100 WBC (Bld) 5.8 % . [facility] Neutrophils Auto (Bld) [#/Vo l]Ordered By: Addi Ortega on 04-08-2023 Neutrophils (Bld) [#/Vol] 4.1 10*3/uL 1.8-7.7 [facility] Neutrophils/100 WBC Auto (Bl d)Ordered By: Addi Ortega on 04-08-2023 Neutrophils/100 WBC (Bld) 53.9 % . [facility] No Panel InformationOrdered By: Addi Ortega on 04-08-2023 Estimated GFR (CKD-EPI) > 60.0 mL/Min [facility] Nicotine Metabolite Negative Cutoff=25 [facility] Comment on above: Performed at: [address] [id number] Director: Catherine Mendoza MD, Phone: [phone] Pharmacy Creatinine Clearance (Chem N/A [facility] Nucleated erythrocytes [Pres ence] in Blood by Automated countOrdered By: Addi Ortega on 04-08-2023 Nucleated RBC Auto Ql (Bld) 0.0 /100{WBC} 0-0.5 [facility] Platelet mean volume Auto (B ld) [Entitic vol]Ordered By: Addi Ortega on 04-08-2023 Platelet mean volume (Bld) [Entitic vol] 8.6 fL 6.3-10.7 [facility] Platelets Auto (Bld) [#/Vol] Ordered By: Addi Ortega on 04-08-2023 Platelets (Bld) [#/Vol] 361 10*3/uL 150-450 [facility] Potassium [Moles/volume] in Serum or PlasmaOrdered By: Addi Ortega on 04-08-2023 Potassium [Moles/Vol] 4.6 mmol/L 3.5-5.1 [facility] Protein [Mass/volume] in Ser um or PlasmaOrdered By: Addi Ortega on 04-08-2023 Protein [Mass/Vol] 7.5 g/dL 6.4-8.[address] [facility] RBC Auto (Bld) [#/Vol]Ordere d By: Addi Ortega on 04-08-2023 RBC (Bld) [#/Vol] 4.29 10*6/uL 3.60-5.00 [facility] Serum or plasma albumin/glob ulin mass ratioOrdered By: Addi Ortega on 04-08-2023 Albumin/Globulin [Mass ratio] 1.8 {ratio} [facility] Serum or plasma anion gap de terminationOrdered By: Addi Ortega on 04-08-2023 Anion gap [Moles/Vol] 12.2 mmol/L 6.0-15.0 [facility] Serum or plasma high density lipoprotein (HDL) cholesterol measurementOrdered By: Addi Ortega on 04-08-2023 Cholesterol in HDL [Mass/Vol] 45 mg/dL 23-92 [facility] Comment on above: HDL CHOL ATP-III CLA SSIFICATION Cardiovascular RiskHDL > or equal to 60 mg/dL LOWHDL < 40 mg/dL HIGH Serum or plasma total choles terol/high density lipoprotein (HDL) cholesterol mass ratOrdered By: Addi Ortega on 04-08-2023 Cholesterol.total/Cho lesterol in HDL [Mass ratio] 3.6 {ratio} <5.0 [facility] Sodium [Moles/volume] in Ser um or PlasmaOrdered By: Addi Ortega on 04-08-2023 Sodium [Moles/Vol] 139 mmol/L 136-[address] [facility] Thyrotropin [Units/volume] i n Serum or PlasmaOrdered By: Addi Ortega on 04-08-2023 TSH Qn 4.55 m[IU]/L 0.45-5.33 [facility] Triglyceride [Mass/volume] i n Serum or PlasmaOrdered By: Addi Ortega on 04-08-2023 Triglyceride [Mass/Vol] 92 mg/dL 0-149 [facility] Comment on above: TRIG ATP III CLASSIF ICATIONTRIG less than 150 mg/dL NormalTRIG 150-199 mg/dL Borderline highTRIG 200-500 mg/dL High TRIG greater than 500 mg/dL Very highStandard traceable to the Center for Disease Conrtrol and Prevention (CDC) test method. Urea nitrogen [Mass/volume] in Serum or PlasmaOrdered By: Addi Ortega on 04-08-2023 Urea nitrogen [Mass/Vol] 18 mg/dL 03-09 [facility] WBC Auto (Bld) [#/Vol]Ordere d By: Addi Ortega on 04-08-2023 WBC (Bld) [#/Vol] 7.6 10*3/uL 3.8-11.[address] [facility] C Urineon 03-24-2023 Bacteria identified Cx [...] Locations R1: This test was performed at: [facility], [address] [place] [address], [address] , , [facility] Comment on above: Performed By: #### 2 188285, 8897152, 70253183, 3274642, 5337266, 6445001 #### [facility] [address] [place] [address] Abdomen/Pelvis w/o Contra ston 03-23-2023 CT [...] Oral contrast amount in ml's: 0 Normal [facility] Discharge Instructionson Discharge Instructions [id number]:127 Normal [facility] ED Note-Physicianon 03-23-20 ED Note-Physician Basic Information [...] any medications. States that she was at [facility], where she did wait about 5 [...] and Complexity of Problems Differential Diagnosis: [] [facility] Data External documents reviewed: [] My [...] day(s), # 28 cap(s), Refills(s) 0, Pharmacy: [facility], 170.2, cm, 03/22/23 20:14:00 EDT, Height/Length Dosing, 113.5, kg, 03/22/23 20:14:00 EDT, Weight Dosing ketorolac, 30 mg = 1 mL, Injection, IV Push, Once, Stop date 03/22/23 20:51:00 EDT, STAT, Start date 03/22/23 20:51:00 EDT, 03/22/23 20:51:00 EDT ondansetron, 4 mg = 2 mL, Injection, IV Push, Once, Stop date 03/22 (more content not included)... Normal [facility] Comment on above: Result Comment: Elec tronically Signed By: Hector Correa PA-C\.br\Date and Time Signed: 03/22/23 23:35 EDT\.br\Electronically Co-Signed By: Gabriel Curtis DO\.br\Date and Time Co-Signed: 03/23/23 03:21 EDT RAD - Preliminary Cat Scan R eporton 03-23-2023 RAD - Preliminary Cat Scan Report [id number]:127 Normal [facility] Auto Diffon 03-22-2023 Basophils/100 WBC (Bld) 0.5 % Normal 0.0-2.0 [facility] Comment on above: Order Comment: Order Added by Discern Expert. Performed By: #### 2 288069, 9946001, 75214796, 7533676, 9740098, 1696911 #### [facility] [address] [place] [address] Basophils/Leukocytes Auto (Bld) [Pure # fraction] 0.0 E9/L Normal 0.0-0.2 [facility] Comment on above: Order Comment: Order Added by Discern Expert. Performed By: #### 2 765816, 3982762, 30792797, 8961675, 7835783, 0818348 #### [facility] [address] [place] [address] Eosinophils/100 WBC (Bld) 1.5 % Normal 0.0-8.0 [facility] Comment on above: Order Comment: Order Added by Discern Expert. Performed By: #### 2 949585, 0314649, 28809229, 0635147, 6946418, 2578735 #### [facility] [address] [place] [address] Eosinophils/Leukocyte s Auto (Bld) [Pure # fraction] 0.1 E9/L Normal 0.0-0.5 [facility] Comment on above: Order Comment: Order Added by Discern Expert. Performed By: #### 2 949071, 3298580, 20753031, 2265845, 2617925, 3793664 #### [facility] [address] [place] [address] Lymphocytes/100 WBC (Bld) 34.9 % Normal 14.0-50.0 [facility] Comment on above: Order Comment: Order Added by Discern Expert. Performed By: #### 2 936930, 8034710, 82601887, 0813100, 6802954, 9234003 #### [facility] [address] [place] [address] Lymphocytes/Leukocyte s Auto (Bld) [Pure # fraction] 3.4 E9/L Normal 1.0-4.0 [facility] Comment on above: Order Comment: Order Added by Mundo Expert. Performed By: #### 2 232032, 3109626, 56622399, 2988975, 1563227, 6561234 #### [facility] [address] [place] [address] Monocytes/100 WBC (Bld) 6.0 % Normal 4.0-14.0 [facility] Comment on above: Order Comment: Order Added by Discern Expert. Performed By: #### 2 929560, 7729643, 03079943, 4070121, 5432915, 9765574 #### [facility] [address] [place] [address] Monocytes/Leukocytes Auto (Bld) [Pure # fraction] 0.6 E9/L Normal 0.2-1.0 [facility] Comment on above: Order Comment: Order Added by Discern Expert. Performed By: #### 2 606223, 5098993, 36352142, 8565133, 9548569, 8552870 #### [facility] [address] [place] [address] Neutrophils/100 WBC (Bld) 57.1 % Normal 36.0-75.0 [facility] Comment on above: Order Comment: Order Added by Discern Expert. Performed By: #### 2 729170, 9656840, 16397513, 3526804, 2176647, 7973621 #### [facility] [address] [place] [address] Neutrophils/Leukocyte s Auto (Bld) [Pure # fraction] 5.6 E9/L Normal 2.0-7.5 [facility] Comment on above: Order Comment: Order Added by Discern Expert. Performed By: #### 2 586848, 9886683, 13926321, 5576069, 8265193, 1870385 #### [facility] [address] [place] [address] BMPon 03-22-2023 Creatinine [Mass/Vol] 0.5 mg/dL Normal 0.5-1.3 [facility] Comment on above: Performed By: #### 2 841435, 1071542, 09172005, 2354304, 7725141, 9419482 #### [facility] [address] [place] [address] Urea nitrogen [Mass/Vol] 15 mg/dL Normal 5-21 [facility] Comment on above: Performed By: #### 2 969570, 8236987, 42571017, 9398346, 2765244, 7438101 #### [facility] [address] [place] [address] Urea nitrogen/Creatinine [Mass ratio] 30 No Units High 10-20 [facility] Comment on above: Performed By: #### 2 530879, 1680022, 80518725, 9546505, 5602973, 3492532 #### [facility] [address] [place] [address] Anion gap [Moles/Vol] 15 mmol/L Normal 6-16 [facility] Comment on above: Performed By: #### 2 465397, 8035428, 55249165, 4795820, 6615172, 7044629 #### [facility] [address] [place] [address] Calcium [Mass/Vol] 9.6 mg/dL Normal 8.9-11.1 [facility] Comment on above: Performed By: #### 2 420647, 3232293, 87905600, 8305438, 2592417, 8472502 #### [facility] [address] [place] [address] Chloride [Moles/Vol] 103 mmol/L Normal 101-111 [facility] Comment on above: Performed By: #### 2 809473, 9083176, 04942543, 1311059, 2133513, 0254473 #### [facility] [address] [place] [address] CO2 [Moles/Vol] 23 mmol/L Normal 21-31 [facility] Comment on above: Performed By: #### 2 161007, 1511431, 68647457, 5504678, 9747343, 1759728 #### [facility] [address] [place] [address] Glucose [Mass/Vol] 84 mg/dL Normal 55-199 [facility] Comment on above: Result Comment: If t his glucose result represents a fasting glucose, interpretation should refer to the following reference range: 55-99 mg/dL Performed By: #### 2 394137, 8618984, 19362609, 5902604, 9680642, 4114643 #### [facility] [address] [place] [address] Potassium [Moles/Vol] 3.7 mmol/L Normal 3.5-5.3 [facility] Comment on above: Performed By: #### 2 259832, 6963035, 05382004, 1982386, 4742711, 1478242 #### [facility] [address] [place] [address] Sodium [Moles/Vol] 137 mmol/L Normal 135-145 [facility] Comment on above: Performed By: #### 2 046126, 4731181, 32848344, 3489083, 8192269, 6702102 #### [facility] [address] [place] [address] CBC w/ Auto Diffon 3 Erythrocyte distribution width (RBC) [Ratio] 12.5 % Normal 10.9-14.2 [facility] Comment on above: Performed By: #### 2 088330, 8281652, 37088229, 4448624, 7896314, 9742565 #### [facility] [address] [place] [address] Hematocrit (Bld) [Volume fraction] 37.7 % Normal 34.0-46.0 [facility] Comment on above: Performed By: #### 2 376911, 6550443, 85851330, 1783881, 3701591, 0827454 #### [facility] [address] [place] [address] Hemoglobin (Bld) [Mass/Vol] 13.1 g/dL Normal 12.0-16.0 [facility] Comment on above: Performed By: #### 2 505077, 8344187, 18809693, 5536600, 7398453, 7582010 #### [facility] [address] [place] [address] MCH (RBC) [Entitic mass] 31.9 pg Normal 27.0-34.0 [facility] Comment on above: Performed By: #### 2 115159, 3282278, 41849987, 8155026, 7174751, 8688290 #### [facility] [address] [place] [address] MCHC (RBC) [Mass/Vol] 34.8 g/dL Normal 31.4-36.0 [facility] Comment on above: Performed By: #### 2 153763, 2141632, 20536285, 0421622, 9715270, 5810071 #### [facility] [address] [place] [address] MCV (RBC) [Entitic vol] 91.6 fL Normal 80.0-100.0 [facility] Comment on above: Performed By: #### 2 181827, 4950877, 05045442, 0059956, 9422061, 5109132 #### [facility] [address] [place] [address] Platelet mean volume (Bld) [Entitic vol] 7.6 fL Normal 6.4-10.8 [facility] Comment on above: Performed By: #### 2 360612, 7646894, 23017071, 4594372, 6844621, 3491621 #### [facility] [address] [place] [address] Platelets (Bld) [#/Vol] 306.0 E9/L Normal 150.0-500. 0 [facility] Comment on above: Performed By: #### 2 326012, 6408420, 92120268, 7980492, 6918505, 7055485 #### [facility] [address] [place] [address] RBC (Bld) [#/Vol] 4.1 E12/L Low 4.3-5.9 [facility] Comment on above: Performed By: #### 2 449749, 5341604, 87233193, 5308139, 1276651, 4923707 #### [facility] [address] [place] [address] WBC corrected for nucl RBC Auto (Bld) [#/Vol] 9.8 E9/L Normal 4.0-11.0 [facility] Comment on above: Performed By: #### 2 025986, 7922002, 06645902, 4652238, 2609210, 4225355 #### [facility] [address] [place] [address] CHEMISTRYOrdered By: SYSTEM SYSTEM on 03-22-2023 Albumin [...] 7.3 g/dL Normal 6.0 - 7.8 gm/dL [facility] Remisol Sodium [Moles/Vol] 137 mmol/L Normal 135 - 145 mmol/L [facility] Remisol Urea nitrogen [Mass/Vol] 15 mg/dL Normal 5 - 21 mg/dL [facility] Remisol Urea nitrogen/Creatinine [Mass ratio] 30 mg/mg High 10 - 20 FT Remisol Consent for Treatmenton 08-0 Consent for Treatment [id number]:127 Normal [facility] ED Clinical Summaryon 2022 ED Clinical Summary (Inserted Image. Hayley ble to display) [place] [id number] ED Clinical Summary Person Information Name: TAWNYA HERRING [facility] Age: 27 Years : 1995 Sex: Female Language: Libyan PCP: DARWIN JONES CNP Marital Status: Single Phone: [phone] Visit Id: Visit Reason: Dysuria; Nausea; Flank [...] 03/22/2023 22:52:44 03/22/2023 22:52:44 03/22/2023 22:52:44 ADDRESS: [address] [place] [id number] PHYS DOC NOTES: MEDICAL INFORMATION: Prescriptions Given: New Medications [facility], [address] [place], [place] [id number], [phone] cephalexin (Keflex 500 mg Cap) 1 Capsules By Mouth every 6 hours for 7 Days. Refills: 0. Medications to Continue with No Changes Other Medications acetaminophen-hydrocodone ([place] 325 mg-5 mg oral tablet) 2 Tablets [...] EDUCATION INFORMATION: Instructions: Urinary Tract Infection, Adult, Hlaq-je-Pusm Follow up: With: Address: When: DARWIN JONES [address] [place] [phone] Business (1) In 3 days 03/25/2023 Comments: Follow-up with your primary care provider in 3 to 5 days. If symptoms worsen, do not improve, or new symptoms arise please report back to emergency department for further evaluation. DIAGNOSIS: UTI (urinary tract infection) Normal [facility] ED Patient Education Noteon 03-22-2023 ED Patient [...] these instructions at home: Medicines ? Take pqif-emr-mcvmicu and prescription medicines only as told by [...] Reviewed: 03/14/2021 Elsevier Patient Education ? 2022 [employer] Normal [facility] ED Patient Summaryon 023 ED Patient Summary (Inserted Image. Hayley ble to display) [address] [address] Patient Discharge Instructions Person Information Name: TAWNYA HERRING Age: 27 Years Arrival Date: 03/22/2023 19:52:37 Discharge Diagnosis: UTI (urinary tract infection) Primary Care Physician: DARWIN JONES CNP Provider Information Primary Provider: Gabriel Curtis DO Advanced State Inspector:None The exam and treatment you received in the Emergency Department were for an urgent problem and are not intended as complete care. It is important that you follow up with a doctor, nurse practitioner, or physician?s assistant director of financial aid for ongoing care. If your symptoms become worse or you do not improve as expected and you are unable to reach your usual health care provider, you should return to the Emergency Department. We are available 24 hours a day. TAWNYA HERRING has been given the following list of patient education materials, prescriptions and follow-up instructions: Follow-up Instructions: With: Address: When: DARWIN JONES [facility] [place] [address] [phone] Business (1) In 3 days 03/25/2023 Comments: [...] Patient Education Materials: Urinary Tract Infection, Adult, Yssy-sw-Degc A MESSAGE TO ALL PATIENTS REGARDING OPIOIDS PRESCRIPTION OPIOIDS: WHAT YOU NEED TO KNOW Prescription opioids can be used to help relieve wgbojulo-ha-khfrod pain and are often prescribed following a [...] of op (more content not included)... Normal [facility] HEMATOLOGYOrdered By: SYSTEM SYSTEM on 03-22-2023 Basophils/100 [...] 03-22-2023 Albumin [Mass/Vol] 4.2 g/dL Normal 3.3-5.0 [facility] Comment on above: Performed By: #### 2 789866, 8491242, 48603480, 9862464, 4118889, 5027619 #### [facility] [address] [place] [address] Albumin/Globulin (S) [Mass conc ratio] 1.4 Normal 1.1-2.2 [facility] Comment on above: Performed By: #### 2 303903, 0030466, 38227444, 7372694, 4586660, 5904043 #### [facility] [address] [place] [address] ALP [Catalytic activity/Vol] 54 Int._Unit/L Normal 21-98 [facility] Comment on above: Performed By: #### 2 246833, 3263573, 02800020, 0614312, 2808901, 4908213 #### [facility] [address] [place] [address] ALT No additional P-5'-P [Catalytic activity/Vol] 24 Int._Unit/L Normal 6-46 [facility] Comment on above: Performed By: #### 2 175369, 9865020, 26951038, 0586639, 4661721, 1155533 #### [facility] [address] [place] [address] AST [Catalytic activity/Vol] 18 Int._Unit/L Normal 5-43 [facility] Comment on above: Performed By: #### 2 073568, 6953640, 76000556, 8054984, 2750556, 0605201 #### [facility] [address] [place] [address] Bilirubin [Mass/Vol] 0.7 mg/dL Normal 0.0-1.1 [facility] Comment on above: Performed By: #### 2 238197, 0229975, 16170167, 6484587, 4439059, 1334989 #### [facility] [address] [place] [address] Bilirubin.direct [Mass/Vol] 0.1 mg/dL Normal 0.1-0.4 [facility] Comment on above: Performed By: #### 2 519708, 1806572, 93502876, 2017032, 9403962, 8466043 #### [facility] [address] [place] [address] Bilirubin.indirect [Mass or moles/Vol] 0.6 mg/dL Normal 0.1-0.9 [facility] Comment on above: Performed By: #### 2 281762, 8895865, 54633363, 7416801, 2853226, 4221479 #### [facility] [address] [place] [address] Globulin (S) [Mass/Vol] 3.1 g/dL Normal 1.4-4.0 [facility] Comment on above: Performed By: #### 2 309700, 2108397, 63285642, 3497360, 3159116, 4087057 #### [facility] [address] [place] [address] Protein [Mass/Vol] 7.3 g/dL Normal 6.0-7.8 [facility] Comment on above: Performed By: #### 2 321378, 0012047, 54816405, 5826355, 1828255, 0942797 #### [facility] [address] [place] [address] Lipase Levelon 03-22-2023 Lipase [Catalytic activity/Vol] 28 U/L Normal 13-58 [facility] Comment on above: Performed By: #### 2 251931, 0627833, 83069988, 3306063, 5478023, 9428425 #### [facility] [address] [place] [address] SEROLOGYOrdered By: Lucina Shaikh on 03-22-2023 HCG.beta subunit (U) [Moles/Vol] Negative Normal [facility] Man Sero U BetaHcg Qualon 03-22-2023 HCG.beta subunit (U) [Moles/Vol] Negative Normal [facility] Comment on above: Performed By: #### 2 761800, 0966372, 36682452, 8859227, 4302151, 8736287 #### [facility] [address] [place] [address] UA With Cult Reflexon 2022 Bacteria LM Ql (Urine sed) TRACE Normal Trace [facility] Comment on above: Performed By: #### 2 854217, 1201186, 77964968, 7822020, 0044495, 3744108 #### [facility] [address] [place] [address] Bilirubin Ql (U) Negative Normal Negative [facility] Comment on above: Performed By: #### 2 855650, 2169352, 73581061, 4161001, 7452828, 5058854 #### [facility] [address] [place] [address] Clarity (U) SL CLOUDY Abnormal Clear [facility] Comment on above: Performed By: #### 2 270005, 3480980, 49412112, 2348794, 9742940, 1651269 #### [facility] [address] [place] [address] Color (U) YELLOW Normal Yellow [facility] Comment on above: Performed By: #### 2 095942, 7220275, 24841267, 4952157, 5603997, 5566254 #### [facility] [address] [place] [address] Crystals LM Ql (Urine sed) Present Normal [facility] Comment on above: Performed By: #### 2 582451, 1535734, 86891456, 7603490, 3593065, 7219927 #### [facility] [address] [place] [address] Epithelial cells.squamous LM.HPF (Urine sed) [#/Area] 0-2 Normal 0-2 [facility] Comment on above: Performed By: #### 2 797280, 2959001, 70483371, 6003663, 7001909, 3096337 #### [facility] [address] [place] [address] Glucose Test strip (U) [Mass/Vol] Negative Normal Negative [facility] Comment on above: Performed By: #### 2 032857, 8613799, 49107594, 5693814, 5214924, 1057749 #### [facility] [address] [place] [address] Hemoglobin Ql (U) 2+ Abnormal Negative [facility] Comment on above: Performed By: #### 2 372049, 3939932, 46578589, 5540590, 2461978, 0020168 #### [facility] [address] [place] [address] Ketones (U) [Mass/Vol] 1+ Abnormal Negative [facility] Comment on above: Performed By: #### 2 017027, 8744215, 25382580, 9019824, 7045694, 4484871 #### [facility] [address] [place] [address] Ladd.plasma/Lithiu m.RBC (Bld) [Mass ratio] 0-3 Normal 0-3 [facility] Comment on above: Performed By: #### 2 601780, 1593669, 73255994, 1436377, 2047838, 0155785 #### [facility] [address] [place] [address] Mucus Ql (Urine sed) TRACE Normal [facility] Comment on above: Performed By: #### 2 577037, 9422042, 76683126, 6622349, 1784231, 6209844 #### [facility] [address] [place] [address] Nitrite Ql (U) Negative Normal Negative [facility] Comment on above: Performed By: #### 2 395764, 3300816, 59386723, 0407895, 0526898, 2048371 #### [facility] [address] [place], [place] [address] pH (U) 5.5 [pH] Invalid Interpretation Code 5.0-9.0 [facility] Comment on above: Performed By: #### 2 699988, 5486142, 98544254, 7419944, 4190878, 0971510 #### [facility] [address] [place] [address] Protein (U) [Mass/Vol] Negative Normal Negative [facility] Comment on above: Performed By: #### 2 661649, 7982508, 35417084, 4450512, 5419414, 2399560 #### [facility] [address] [place] [address] Specific gravity (U) [Rel density] >=1.030 Invalid Interpretation Code 1.005-1.03 0 [facility] Comment on above: Performed By: #### 2 205824, 9241271, 65612561, 4798570, 2038969, 4760016 #### [facility] [address] [place] [address] Type of Urine collection method Clean Catch Normal [facility] Comment on above: Performed By: #### 2 193957, 4363566, 03825110, 8154057, 3527372, 9332931 #### [facility] [address] [place] [address] Urobilinogen Qn (U) 0.2 {Aly'U}/dL Normal 0.0-1.0 [facility] Comment on above: Performed By: #### 2 756702, 0734921, 09204563, 8102415, 6711404, 2926244 #### [facility] [address] [place] [address] WBC Auto Ql (U) 2+ Abnormal Negative [facility] Comment on above: Performed By: #### 2 509914, 3319737, 77449022, 4730375, 2511284, 4669922 #### [facility] [address] [place] [address] WBC LM.HPF (Urine sed) [#/Area] 16-25 Abnormal 0-5 [facility] Comment on above: Performed By: #### 2 286233, 3460660, 78650480, 3786066, 9785519, 2078318 #### [facility] [address] [place] [address] URINALYSISOrdered By: Elizabeth Shaikh on 03-22-2023 Bacteria [...] Interpretation Code Negative [facility] UA Auto SS Ladd.plasma/Lithiu m.RBC (Bld) [Mass ratio] 0-3 /HPF Normal [...] [facility] UA Auto SS Urobilinogen Qn (U) 0.0964931 {Aly'U}/dL Normal 0.0 - 1.0 EU/dL [facility] UA Auto SS WBC Auto Ql (U) 2+ *ABN* (03/22/23 8:17 PM) Invalid Interpretation Code Negative [facility] UA Auto SS WBC LM.HPF (Urine sed) [#/Area] 16-25 /HPF Invalid Interpretation Code 0-5/HPF [facility] UA Auto SS eGFRon 03-22-2023 GFR/1.73 sq M.predicted among non-blacks MDRD (S/P/Bld) [Vol rate/Area] 133 mL/min/1.73 m2 Normal >=59 [facility] Comment on above: Order Comment: Order added by Discern Expert. Result Comment: Boat Outfitting Supervisor vinh kidney disease could be indicated at eGFR's of less than 60 mL/min/1.73m2. Kidney failure is indicated at less than 15 mL/min/1.73m2. Performed By: #### 2 585457, 7415195, 50217257, 4031180, 2833139, 5519409 #### [facility] [address] [place] [address] Alanine aminotransferase [En zymatic activity/volume] in Serum or PlasmaOrdered By: Zurdo Ortega on 02-28-2023 ALT [Catalytic activity/Vol] 21 U/L 7 [facility] HIV 1 and HIV-2 antibody ass ay with HIV-1 p24 antigen detectionOrdered By: Zurdo Ortega on 02-28-2023 HIV 1+2 Ab+HIV1 p24 Ag IA Ql Non-Reactive Non Reactive [facility] Comment on above: HIV NegativeHIV-1/HI V-2 antibodies and HIV-1 p24 antigen were NOTdetected. There is no laboratory evidence of HIV infection. Hepatitis B virus surface Ag [Presence] in Serum or Plasma by ImmunoassayOrdered By: Zurdo Ortega on 02-28-2023 HBV surface Ag IA Ql Negative Negative [facility] Comment on above: Performed at: [address] [id number] Director: Alexis Ashton PhD, Phone: [phone] Hepatitis C virus IgG Ab [Pr esence] in Serum or Plasma by ImmunoassayOrdered By: Zurdo Ortega on 02-28-2023 HCV IgG IA Ql Non-Reactive Non Reactive [facility] No Panel InformationOrdered By: Zurdo Ortega on 02-28-2023 Hepatitis C Interpretation See comment . [facility] Comment on above: Not infected with HC V unless early or acute infection issuspected (which may be delayed in an immunocompromisedindividual), or other evidence exists to indicate HCVinfection. Serum hepatitis B virus surf nikolas antibody detectionOrdered By: Zurdo Ortega on 02-28-2023 HBV surface Ab Ql (S) Reactive . [facility] Comment on above: Non Reactive: Incons istent with immunity, less than 10 mIU/mL Reactive: Consistent with immunity, greater than 9.9 mIU/mL PAP ACOG PANEL 2: 21 to 29on 12-17-2022 . . Normal [facility] Comment on above: Performed By: #### 4 164115 #### [facility] [address] [place] [address] Dr. Regine Fortune Age Gdln ACOG Testing 21-29 [facility] Comment on above: Performed By: #### 4 369882 #### [facility] [address] [place] [address] Dr. Regine Fortune DIAGNOSIS: Comment Normal [facility] Comment on above: Result Comment: NEGA TIVE FOR INTRAEPITHELIAL LESION OR MALIGNANCY. Performed By: #### 4 127537 #### [facility] [address] [place] [address] Dr. Regine Fortune Methodology: Comment [facility] Comment on above: Result Comment: This liquid based ThinPrep(R) pap test was screened with the use of an image guided system. Performed By: #### 4 189532 #### [facility] [address] [place] [address] Dr. Regine Fortune Note: Comment [facility] Comment on above: Result Comment: The Pap smear is a screening test designed to aid in the detection of premalignant and malignant conditions of the uterine cervix. It is not a diagnostic procedure and should not be used as the sole means of detecting cervical cancer. Both false-positive and false-negative reports do occur. . Performed By: #### 4 082586 #### [facility] [address] [place] [address] Dr. Regine Fortune Performed by: Comment Normal [facility] Comment on above: Result Comment: Amna Hernandes Landing Signal Officer (ASCP) Performed By: #### 4 300871 #### [facility] [address] [place] [address] Dr. Regine Fortune Reflex Criteria: Comment [facility] Comment on above: Result Comment: The HPV DNA reflex criteria were not met with this specimen result therefore, no HPV testing was performed. . Performed By: #### 4 813260 #### [facility] [address] [place] [address] Dr. Regine Fortune Specimen adequacy: Comment Normal [facility] Comment on above: Result Comment: Sati sfactory for evaluation. Endocervical and/or squamous metaplastic cells (endocervical component) are present. Areas of partially obscuring inflammatory exudate are present. Performed By: #### 4 865130 #### [facility] [address] [place] [address] Dr. Regine Fortune Thyrotropin [Units/volume] i n Serum or PlasmaOrdered By: Brain Way on 12-10-2022 TSH Qn 2.86 m[IU]/L 0.45-5.33 [facility] Thyroxine (T4) free [Mass/vo lume] in Serum or PlasmaOrdered By: Brain Way on 12-10-2022 Free T4 [Mass/Vol] 0.94 ng/dL 0.61-1.[address] [facility] Albumin [Mass/volume] in Ser um or PlasmaOrdered By: Ofelia Hester on 10-16-2022 Albumin [Mass/Vol] 4.1 g/dL 3.2-5.[address] [facility] Alkaline phosphatase [Enzyma tic activity/volume] in Serum or PlasmaOrdered By: Ofelia Hester on 10-16-2022 ALP [Catalytic activity/Vol] 56 U/L 32-92 [facility] Amylaseon 10-16-2022 Amylase 43 U/L Normal 28-100 U/L [facility] Other Amylase [Enzymatic activity/ volume] in Serum or PlasmaOrdered By: Ofelia Hester on 10-16-2022 Amylase [Catalytic activity/Vol] 43 U/L 28-100 [facility] Aspartate aminotransferase [ Enzymatic activity/volume] in Serum or PlasmaOrdered By: Ofelia Hester on 10-16-2022 AST [Catalytic activity/Vol] 16 U/L 10-42 [facility] Bilirubin.total [Mass/volume ] in Serum or PlasmaOrdered By: Ofelia Hester on 10-16-2022 Bilirubin [Mass/Vol] 0.6 mg/dL 0.3-1.2 [facility] Calcium [Mass/volume] in Ser um or PlasmaOrdered By: Ofelia Hester on 10-16-2022 Calcium [Mass/Vol] 9.3 mg/dL 8.2-10.[address] [facility] Carbon dioxide, total [Moles /volume] in Serum or PlasmaOrdered By: Ofelia Hester on 10-16-2022 CO2 [Moles/Vol] 22.1 mmol/L 22.0-30.0 [facility] Chloride [Moles/volume] in S ghada or PlasmaOrdered By: Ofelia Hester on 10-16-2022 Chloride [Moles/Vol] 105 mmol/L 95-114 [facility] Comprehensive Metabolic Pane samy 10-16-2022 Albumin [Mass/Vol] 4.446014 g/dL Normal 3.2-5.5 g/dL [facility] Other ALT [Catalytic activity/Vol] 17 U/L Normal 10-60 U/L [facility] Other Bilirubin [Mass/Vol] 0.4634864 mg/dL Normal 0.3- 1.2 mg/dL [facility] Other Calcium [Mass/Vol] 9.8268099 mg/dL Normal 8.2-10 .2 mg/dL [facility] Other CO2 [Moles/Vol] 22.80312966 mmol/L Normal 22.0-3 0.0 mmol/L [facility] Other Creatinine [Mass/Vol] 0.97982675 mg/dL Normal 0. 44-1.03 mg/dL [facility] Other Potassium [Moles/Vol] 4.87372636 mmol/L Normal 3 .5-5.1 mmol/L [facility] Other Protein [Mass/Vol] 6.514280 g/dL Normal 6.1-7.9 g/dL [facility] Other Comprehensive Metabolic Panel > 60 [facility] Other Comprehensive Metabolic Panel 2.5 g/dL [facility] Other Creatinine and Glomerular fi ltration rate.predicted panel (S/P/Bld)Ordered By: Ofelia Hester on 10-16-2022 Creatinine [Mass/Vol] 0.55 mg/dL 0.44-1.03 [facility] Estimated glomerular filtrat ion rate (GFR) non- AmericanOrdered By: Ofelia Hester on 10-16-2022 GFR/1.73 sq M.predicted among non-blacks MDRD (S/P/Bld) [Vol rate/Area] > 60 mL/Min [facility] Globulin Calc (S) [Mass/Vol] Ordered By: Ofelia Hester on 10-16-2022 Globulin (S) [Mass/Vol] 2.5 g/dL [facility] Glucose [Mass/volume] in Ser um or PlasmaOrdered By: Ofelia Hester on 10-16-2022 Glucose [Mass/Vol] 86 mg/dL 70-[address] [facility] Comment on above: ADA recommended refe rence rangeRandom Glucose Reference Range is dependent on time and content of last meal. Glucose of more than 200 mg/dL in a nonstressed, ambulatory subject supports the diagnosis of Diabetes Mellitus. Laboratory - Chemistry and C hemistry - challengeOrdered By: Ofelia Hester on 10-16-2022 Lipase [Catalytic activity/Vol] 35.0 U/L 22-51 [facility] Lipaseon 10-16-2022 Lipase [Catalytic activity/Vol] 35.69952 U/L Normal 22-51 U/L [facility] Other No Panel InformationOrdered By: Ofelia Hester on 10-16-2022 Estimated GFR () > 60 mL/Min [facility] Comment on above: GFR estimated refere nce range: According to KDOQI guidelines, <60 ml/min/1.73m2 is sufficient to diagnose a patient with chronic kidney disease. Pharmacy Creatinine Clearance (Chem N/A [facility] Potassium [Moles/volume] in Serum or PlasmaOrdered By: Ofelia Hester on 10-16-2022 Potassium [Moles/Vol] 4.3 mmol/L 3.5-5.1 [facility] Protein [Mass/volume] in Ser um or PlasmaOrdered By: Ofelia Hester on 10-16-2022 Protein [Mass/Vol] 6.6 g/dL 6.1-7.[address] [facility] Serum or plasma alanine galaviz otransferase measurement without P-5'-P (enzymatic activiOrdered By: Ofelia Hester on 10-16-2022 ALT No additional P-5'-P [Catalytic activity/Vol] 17 U/L 10-60 [facility] Serum or plasma albumin/glob ulin mass ratioOrdered By: Ofelia Hester on 10-16-2022 Albumin/Globulin [Mass ratio] 1.6 {ratio} [facility] Serum or plasma anion gap de terminationOrdered By: Ofelia Hester on 10-16-2022 Anion gap [Moles/Vol] 13.2 mmol/L 6.0-15.0 [facility] Sodium [Moles/volume] in Ser um or PlasmaOrdered By: Ofelia Hester on 10-16-2022 Sodium [Moles/Vol] 136 mmol/L 136-[address] [facility] Urea nitrogen [Mass/volume] in Serum or PlasmaOrdered By: Ofelia Hester on 10-16-2022 Urea nitrogen [Mass/Vol] 11 mg/dL 9-23 [facility] T4 FREE/FREE THYROXon 2021 Free T4 [Mass/Vol] 1.3 ng/dL 0.9 - 1.7 ng/dL [facility] TSH BLDon 07-14-2022 TSH Qn 2.480 m[IU]/L 0.270 - 4.200 mIU/L [facility] VITAMIN B12 BLOODon 07-14-20 Cobalamin (Vitamin B12) [Mass/Vol] 267 pg/mL 232 - 1,245 pg/mL [facility] Quick Fluon 06-04-2022 FLUAV Ab CF (S) [Titer] Negative [facility] Other FLUBV Ab CF (S) [Titer] Negative [facility] Other Quick Strepon 06-04-2022 S. pyogenes Org specific cx Ql (Throat) Negative [facility] Other Quick Strep [facility] Other SARS-CoV-2 (COVID-19) RNA NA A+probe Ql (Resp)on 06-04-2022 SARS-CoV-2 (COVID-19) RNA LAUREN+probe Ql (Unsp spec) Negative [facility] Other TSH DL <= 0.005 mIU/L QnOrde red By: Darwin Jones on 04-14-2022 TSH Qn 6.39 m[IU]/L 0.45-5.33 [facility] Thyroxine (T4) free [Mass/vo lume] in Serum or PlasmaOrdered By: Darwin Jones on 04-14-2022 Free T4 [Mass/Vol] 0.82 ng/dL 0.61-1.[address] [facility] Triiodothyronine (T3) Free [ Mass/volume] in Serum or PlasmaOrdered By: Darwin Jones on 04-14-2022 Free T3 [Mass/Vol] 4.08 pg/mL 2.50-3.[address] [facility] Serum or plasma calcium luis urement (mass/volume)Ordered By: Saad Valera on 04-06-2022 Calcium [Mass/Vol] 9.4 mg/dL 8.2-10.[address] [facility] Serum or plasma intact parat hyroid hormone measurement (mass/volume)Ordered By: Saad Valera on 04-06-2022 Parathyrin.intact [Mass/Vol] 54.8 pg/mL 1288 [facility] CHEMISTRYOrdered By: Lab ROP User on 02-18-2022 Glucose [Mass/Vol] 106 mg/dL High 55 - 99 mg/dL [facility] POC Subsection Comment on above: Result Comment: Aurelia breana Meter POC Device SN [id number] Invalid Interpretation Code [facility] POC Subsection POC User ID [id number] Invalid Interpretation Code [facility] POC Subsection POC Username OBINNA EPPERSON Invalid Interpretation Code [facility] POC Subsection Serum or plasma thyroglobuli n antibody assay (units/volume)Ordered By: Darwin Jones on 02-13-2022 Thyroglobulin Ab Qn 971.2 [IU]/mL 0.0-0.9 [facility] Comment on above: Thyroglobulin Antibo dy measured by Nathen Christoval Methodology Performed at: CB - [facility] [address] [id number] General Office Dispatcher: Alexis Ashton PhD, Phone: [phone] Serum or plasma thyroperoxid ase antibody assay (units/volume)Ordered By: Darwin Jones on 02-13-2022 TPO Ab Qn 327 [IU]/mL 0-34 [facility] Thyroxine (T4) free [Mass/vo lume] in Serum or PlasmaOrdered By: Darwin Jones on 02-13-2022 Free T4 [Mass/Vol] 0.66 ng/dL 0.61-1.[address] [facility] Triiodothyronine (T3) Free [ Mass/volume] in Serum or PlasmaOrdered By: Darwin Jones on 02-13-2022 Free T3 [Mass/Vol] 4.04 pg/mL 2.50-3.[address] [facility] Albumin [Mass/volume] in Ser um or PlasmaOrdered By: Addi Ortega on 02-10-2022 Albumin [Mass/Vol] 4.1 g/dL 3.2-5.[address] [facility] Basophils Auto (Bld) [#/Vol] Ordered By: Addi Ortega on 02-10-2022 Basophils (Bld) [#/Vol] 0.0 10*3/uL 0.0-0.2 [facility] Basophils/100 WBC Auto (Bld) Ordered By: Addi Ortega on 02-10-2022 Basophils/100 WBC (Bld) 0.4 % . [facility] Blood hemoglobin measurement (mass/volume)Ordered By: Addi Ortega on 02-10-2022 Hemoglobin (Bld) [Mass/Vol] 14.1 g/dL 11.8-15.4 [facility] Blood leukocytes automated c ount (number/volume)Ordered By: Addi Ortega on 02-10-2022 WBC (Bld) [#/Vol] 7.3 10*3/uL 4.5-11.[address] [facility] Cholesterol [Mass/volume] in Serum or PlasmaOrdered By: Addi Ortega on 02-10-2022 Cholesterol [Mass/Vol] 195 mg/dL 140-200 [facility] Comment on above: Chol less than 200 m g/dl low risk Chol 201-239 mg/dl borderline risk Chol 240 mg/dl and greater high risk Cholesterol in LDL Calc [Mas s/Vol]Ordered By: Addi Ortega on 02-10-2022 Cholesterol in LDL [Mass/Vol] 113 mg/dL 0-100 [facility] Comment on above: LDL ATP III CLASSIFI CATION LDL less than 100 mg/dL Optimal LDL 100-129 mg/dL Near or above optimal LDL 130-159 mg/dL Borderline high LDL 160-189 mg/dL High LDL greater than 189 mg/dL Very high Cholesterol in VLDL Calc [Ma ss/Vol]Ordered By: Addi Ortega on 02-10-2022 Cholesterol in VLDL [Mass/Vol] 26 mg/dL [facility] Creatinine and Glomerular fi ltration rate.predicted panel (S/P/Bld)Ordered By: Addi Ortega on 02-10-2022 Creatinine [Mass/Vol] 0.71 mg/dL 0.44-1.03 [facility] Eosinophils Auto (Bld) [#/Vo l]Ordered By: Addi Ortega on 02-10-2022 Eosinophils (Bld) [#/Vol] 0.1 10*3/uL 0.0-0.45 [facility] Eosinophils/100 WBC Auto (Bl d)Ordered By: Addi Ortega on 02-10-2022 Eosinophils/100 WBC (Bld) 1.5 % . [facility] Erythrocyte distribution wid th Auto (RBC) [Ratio]Ordered By: Addi Ortega on 02-10-2022 Erythrocyte distribution width (RBC) [Ratio] 14.0 % 11.9-15.3 [facility] Estimated glomerular filtrat ion rate (GFR) non- AmericanOrdered By: Addi Ortega on 02-10-2022 GFR/1.73 sq M.predicted among non-blacks MDRD (S/P/Bld) [Vol rate/Area] > 60 mL/Min [facility] Globulin Calc (S) [Mass/Vol] Ordered By: Addi Ortega on 02-10-2022 Globulin (S) [Mass/Vol] 2.8 g/dL [facility] Hematocrit Auto (Bld) [Volum e fraction]Ordered By: Addi Ortega on 02-10-2022 Hematocrit (Bld) [Volume fraction] 40.3 % 34.0-46.4 [facility] Laboratory - Chemistry and C hemistry - challengeOrdered By: Addi Ortega on 02-10-2022 Glucose [Mass/Vol] 90 mg/dL 70-[address] [facility] Laboratory - Hematology and Cell countsOrdered By: Addi Ortega on 02-10-2022 Nucleated RBC/100 WBC (Bld) [Ratio] 0.1 % 0-0.5 [facility] Lymphocytes Auto (Bld) [#/Vo l]Ordered By: Addi Ortega on 02-10-2022 Lymphocytes (Bld) [#/Vol] 3.3 10*3/uL 1.00-4.8 [facility] Lymphocytes/100 WBC Auto (Bl d)Ordered By: Addi Ortega on 02-10-2022 Lymphocytes/100 WBC (Bld) 45.2 % . [facility] MCH Auto (RBC) [Entitic mass ]Ordered By: Addi Ortega on 02-10-2022 MCH (RBC) [Entitic mass] 33.0 pg 24.7-34.3 [facility] MCHC Auto (RBC) [Mass/Vol]Or dered By: Addi Ortega on 02-10-2022 MCHC (RBC) [Mass/Vol] 34.9 g/dL 32.0-35.0 [facility] MCV Auto (RBC) [Entitic vol] Ordered By: Addi Ortega on 02-10-2022 MCV (RBC) [Entitic vol] 94.6 fL 80-100 [facility] Monocyte %Ordered By: Addi Ortega on 02-10-2022 Monocyte % 134 mg/dL 35-149 [facility] Comment on above: TRIG ATP III CLASSIF ICATION TRIG less than 150 mg/dL Normal TRIG 150-199 mg/dL Borderline high TRIG 200-500 mg/dL High TRIG greater than 500 mg/dL Very high Standard traceable to the Center for Disease Conrtrol and Prevention (CDC) test method. Monocytes Auto (Bld) [#/Vol] Ordered By: Addi Ortega on 02-10-2022 Monocytes (Bld) [#/Vol] 0.5 10*3/uL 0.0-0.8 [facility] Monocytes/100 WBC Auto (Bld) Ordered By: Addi Ortega on 02-10-2022 Monocytes/100 WBC (Bld) 6.3 % . [facility] Neutrophils Auto (Bld) [#/Vo l]Ordered By: Addi Ortega on 02-10-2022 Neutrophils (Bld) [#/Vol] 3.4 10*3/uL 1.8-7.7 [facility] Neutrophils/100 WBC Auto (Bl d)Ordered By: Addi Ortgea on 02-10-2022 Neutrophils/100 WBC (Bld) 46.6 % . [facility] No Panel InformationOrdered By: Addi Ortega on 02-10-2022 Estimated GFR () > 60 mL/Min [facility] Comment on above: GFR estimated refere nce range: According to KDOQI guidelines, <60 ml/min/1.73m2 is sufficient to diagnose a patient with chronic kidney disease. Nicotine Metabolite Negative Cutoff=25 [facility] Comment on above: Performed at: [address] [id number] General Office Dispatcher: Catherine Mendoza MD, Phone: [phone] Pharmacy Creatinine Clearance (Chem N/A [facility] Platelet mean volume Auto (B ld) [Entitic vol]Ordered By: Addi Ortega on 02-10-2022 Platelet mean volume (Bld) [Entitic vol] 8.4 fL 6.3-10.7 [facility] Platelets Auto (Bld) [#/Vol] Ordered By: Addi Ortega on 02-10-2022 Platelets (Bld) [#/Vol] 321 10*3/uL 150-450 [facility] Protein [Mass/volume] in Ser um or PlasmaOrdered By: Addi Ortega on 02-10-2022 Protein [Mass/Vol] 6.9 g/dL 6.1-7.[address] [facility] RBC Auto (Bld) [#/Vol]Ordere d By: Addi Ortega on 02-10-2022 RBC (Bld) [#/Vol] 4.26 10*6/uL 3.60-5.00 [facility] Serum or plasma alanine galaviz otransferase measurement without P-5'-P (enzymatic activiOrdered By: Addi Ortega on 02-10-2022 ALT No additional P-5'-P [Catalytic activity/Vol] 26 U/L 10-60 [facility] Serum or plasma albumin/glob ulin mass ratioOrdered By: Addi Ortega on 02-10-2022 Albumin/Globulin [Mass ratio] 1.5 {ratio} [facility] Serum or plasma alkaline hosea sphatase measurement (enzymatic activity/volume)Ordered By: Addi Ortega on 02-10-2022 ALP [Catalytic activity/Vol] 47 U/L 32-92 [facility] Serum or plasma aspartate am inotransferase measurement (enzymatic activity/volume)Ordered By: Addi Ortega on 02-10-2022 AST [Catalytic activity/Vol] 18 U/L 10-42 [facility] Serum or plasma calcium luis urement (mass/volume)Ordered By: Addi Ortega on 02-10-2022 Calcium [Mass/Vol] 9.3 mg/dL 8.2-10.[address] [facility] Serum or plasma chloride radha surement (moles/volume)Ordered By: Addi Ortega on 02-10-2022 Chloride [Moles/Vol] 99 mmol/L 95-114 [facility] Serum or plasma high density lipoprotein (HDL) cholesterol measurementOrdered By: Addi Ortega on 02-10-2022 Cholesterol in HDL [Mass/Vol] 55 mg/dL 35-85 [facility] Comment on above: HDL CHOL ATP-III CLA SSIFICATION Cardiovascular Risk HDL > or equal to 60 mg/dL LOW HDL < 40 mg/dL HIGH Serum or plasma potassium me asurement (moles/volume)Ordered By: Addi Ortega on 02-10-2022 Potassium [Moles/Vol] 4.1 mmol/L 3.5-5.1 [facility] Serum or plasma sodium measu rement (moles/volume)Ordered By: Addi Ortega on 02-10-2022 Sodium [Moles/Vol] 135 mmol/L 136-[address] [facility] Serum or plasma total biliru bin measurement (mass/volume)Ordered By: Addi Ortega on 02-10-2022 Bilirubin [Mass/Vol] 0.7 mg/dL 0.3-1.2 [facility] Serum or plasma total carbon dioxide measurement (moles/volume)Ordered By: Addi Ortega on 02-10-2022 CO2 [Moles/Vol] 23.3 mmol/L 22.0-30.0 [facility] Serum or plasma total choles terol/high density lipoprotein (HDL) cholesterol mass ratOrdered By: Addi Ortega on 02-10-2022 Cholesterol.total/Cho lesterol in HDL [Mass ratio] 3.5 {ratio} <5.0 [facility] Serum or plasma urea nitroge n measurement (mass/volume)Ordered By: Addi Ortega on 02-10-2022 Urea nitrogen [Mass/Vol] 17 mg/dL 9-23 [facility] TSH DL <= 0.005 mIU/L QnOrde red By: Addi Ortega on 02-10-2022 TSH Qn 57.67 m[IU]/L 0.45-5.33 [facility] No Panel Informationon 09-03 6 {mm/hr} Normal 0-34 -[facility] [address] DO Work Phone: Office [...] signing my name below, I, Sheila Gonzalez LPN ,Candace, attest that this documentation has been prepared [...] Vital Signs Recorded: 03Sep2021 10:02AMRecorded: 03Sep2021 09:55AM [id number], LUE, [id number], RUE, Sitting [id number], LUE, [id number], RUE, Sitting Heart Rate72, Apical Height5 ft 7 in Pmexos802 lb 9.6 oz BMI Swexwlbvgu04.36 kg/m2 BSA Calculated2.05 Tobacco Useb) No EKG [...] . Sign (more content not included)... Normal [place] Tobacco Screening.on 022 Tobacco use status [facility] b) No -[facility] 600 DO Work Phone: Vital Signs Date Time Vital Sign Value Performing Clinician Facility 10-05-2024 14:20-0500 Body mass index (BMI) [Ratio] 40.72 kg/m2 Mya MCMILLAN Work Phone: [facility] 10-05-2024 14:20-0500 Body weight 117.94 kg Mya Finch PA Work Phone: [facility] 10-05-2024 14:20-0500 Diastolic blood pressure 70 mm[Hg] Mya Stef PA Work Phone: [facility] 10-05-2024 14:20-0500 Systolic blood pressure 120 mm[Hg] Mya Finch PA Work Phone: [facility] 09-19-2024 14:33-0500 Body mass index (BMI) [Ratio] 39.49 kg/m2 Brain Seamus DO Work Phone: [facility] 09-19-2024 14:33-0500 Body weight 114.36 kg Brain Seamus DO Work Phone: [facility] 09-19-2024 14:33-0500 Diastolic blood pressure 70 mm[Hg] Brain Seamus DO Work Phone: [facility] 09-19-2024 14:33-0500 Systolic blood pressure 120 mm[Hg] Brain Seamus DO Work Phone: [facility] 09-07-2024 14:44-0500 Body mass index (BMI) [Ratio] 39.75 kg/m2 Mya Finch PA Work Phone: [facility] 09-07-2024 14:44-0500 Body weight 115.12 kg Mya Finch PA Work Phone: [facility] 09-07-2024 14:44-0500 Diastolic blood pressure 82 mm[Hg] Mya Stef PA Work Phone: [facility] 09-07-2024 14:44-0500 Systolic blood pressure 120 mm[Hg] Mya Finch PA Work Phone: [facility] 09-06-2024 14:04-0500 Body temperature 97.88 [degF] Flash Franco [facility] 09-06-2024 14:04-0500 Diastolic blood pressure 77 mm[Hg] Flash Franco [facility] 09-06-2024 14:04-0500 Heart rate 101 /min Flash Franco [facility] 09-06-2024 14:04-0500 Respiratory rate 18 /min Flash Franco [facility] 09-06-2024 14:04-0500 SaO2% (BldA) [Mass fraction] 99 % Flash Franco [facility] 09-06-2024 14:04-0500 Systolic blood pressure 122 mm[Hg] Flash Franco [facility] 09-05-2024 15:45-0500 Hourly Rounding Rogelio Nath [facility] Comment on above: Result Comment: discharge instructions jessica oswald. monitors off and pt up to dress. 09-05-2024 15:35-0500 Hourly Rounding Rogelio Nath [facility] Comment on above: Result Comment: pt was able to keep spri te and lemon ice down. Wants to go home. 09-05-2024 14:49-0500 Hourly Rounding Rogelio Nath [facility] Comment on above: Result Comment: sprite, lemon ice and ju ice given per pt request. 09-05-2024 07:35-0500 Body temperature 98.24 [degF] Rogelio Nath [facility] 09-05-2024 07:35-0500 Diastolic blood pressure 42 mm[Hg] Rogelio Nath [facility] 09-05-2024 07:35-0500 Heart rate 109 /min Rogelio Nath [facility] 09-05-2024 07:35-0500 Mean blood pressure 65 mm[Hg] Rogelio Pham [facility] 09-05-2024 07:35-0500 Respiratory rate 18 /min Rogelio Nath [facility] 09-05-2024 07:35-0500 Systolic blood pressure 111 mm[Hg] Rogelio Nath [facility] 09-05-2024 07:30-0500 Blood Pressure Location Rogelio Nath [facility] 09-05-2024 04:32-0500 Blood Pressure Location Rogelio Nath [facility] 09-05-2024 04:32-0500 Body temperature 98.24 [degF] Rogelio Nath [facility] 09-05-2024 04:32-0500 Diastolic blood pressure 72 mm[Hg] Rogelio Nath [facility] 09-05-2024 04:32-0500 Heart rate 104 /min Rogelio Nath [facility] 09-05-2024 04:32-0500 Mean blood pressure 90 mm[Hg] Rogelio Nath [facility] 09-05-2024 04:32-0500 Respiratory rate 16 /min Rogelio Nath [facility] 09-05-2024 04:32-0500 SaO2% (BldA) [Mass fraction] 98 % Rogelio Nath [facility] 09-05-2024 04:32-0500 Systolic blood pressure 127 mm[Hg] Rogelio Nath [facility] 09-05-2024 04:00-0500 Diastolic blood pressure 64 mm[Hg] Rogelio Nath [facility] 09-05-2024 04:00-0500 Heart rate 115 /min Rogelio Nath [facility] 09-05-2024 04:00-0500 Mean blood pressure 86 mm[Hg] Rogelio Nath [facility] 09-05-2024 04:00-0500 Systolic blood pressure 129 mm[Hg] Rogelio Nath [facility] 09-05-2024 03:06-0500 Body temperature 97.7 [degF] Rogelio Nath [facility] 09-05-2024 03:06-0500 Heart rate 128 /min Rogelio Nath [facility] 09-05-2024 03:06-0500 Respiratory rate 20 /min Rogelio Nath [facility] 09-05-2024 03:06-0500 SaO2% (BldA) [Mass fraction] 98 % Rogelio Nath [facility] 08-25-2024 12:21-0500 Body height 170.18 cm Darwin Easterwood BOARD CATCHER Work Phone: [facility] 08-25-2024 12:21-0500 Body mass index (BMI) [Ratio] 39.6 kg/m2 Darwin Easterwood BOARD CATCHER Work Phone: [facility] 08-25-2024 12:21-0500 Body weight 114.75 kg Darwin Easterwood BOARD CATCHER Work Phone: [facility] 08-25-2024 12:21-0500 Diastolic blood pressure 84 mm[Hg] Darwin Easterwood BOARD CATCHER Work Phone: [facility] 08-25-2024 12:21-0500 Heart rate 108 /min Darwin Easterwood BOARD CATCHER Work Phone: [facility] 08-25-2024 12:21-0500 Respiratory rate 18 /min Darwin Easterwood BOARD CATCHER Work Phone: [facility] 08-25-2024 12:21-0500 SaO2% (BldA) [Mass fraction] 98 % Darwin Jones BOARD CATCHER Work Phone: [facility] 08-25-2024 12:21-0500 Systolic blood pressure 132 mm[Hg] Darwin Jones BOARD CATCHER Work Phone: [facility] 08-23-2024 11:00-0500 Body mass index (BMI) [Ratio] 40.16 kg/m2 Brain Seamus DO Work Phone: [facility] 08-23-2024 11:00-0500 Body weight 116.3 kg Brain Seamus DO Work Phone: [facility] 08-23-2024 11:00-0500 Diastolic blood pressure 78 mm[Hg] Brain Seamus DO Work Phone: [facility] 08-23-2024 11:00-0500 Systolic blood pressure 120 mm[Hg] Brani Seamus DO Work Phone: [facility] 07-11-2024 13:09-0500 Body mass index (BMI) [Ratio] 38.97 kg/m2 Brain Seamus DO Work Phone: [facility] 07-11-2024 13:09-0500 Body weight 112.86 kg Brain Seamus DO Work Phone: [facility] 07-11-2024 13:09-0500 Diastolic blood pressure 76 mm[Hg] Brain Seamus DO Work Phone: [facility] 07-11-2024 13:09-0500 Systolic blood pressure 120 mm[Hg] Brain Seamus DO Work Phone: [facility] 06-28-2024 08:04-0500 Body weight Darwin Jones BOARD CATCHER Work Phone: [facility] Comment on above: Not provided. 2024 14:13-0500 Diastolic blood pressure 78 mm[Hg] Hayden Reilly MD Work Phone: [facility] 2024 14:13-0500 Heart rate 88 /min Hayden Reilly MD Work Phone: [facility] 2024 14:13-0500 Systolic blood pressure 125 mm[Hg] Hayden Reilly MD Work Phone: [facility] 2024 13:18-0500 Body height 170.2 cm Hayden Reilly MD Work Phone: [facility] 06-12-2024 10:19-0400 Body mass index (BMI) [Ratio] 38.37 kg/m2 Brain Seamus DO Work Phone: [facility] 06-12-2024 10:19-0400 Body weight 111.13 kg Brain Seamus DO Work Phone: [facility] 06-12-2024 10:19-0400 Diastolic blood pressure 80 mm[Hg] Brain Seamus DO Work Phone: [facility] 06-12-2024 10:19-0400 Systolic blood pressure 122 mm[Hg] Brain Seamus DO Work Phone: [facility] 05-11-2024 11:04-0400 Body height 170.18 cm BOARD CATCHER Darwin Easterwood Work Phone: [facility] 05-11-2024 11:04-0400 Body mass index (BMI) [Ratio] 38.2 kg/m2 BOARD CATCHER Darwin Easterwood Work Phone: [facility] 05-11-2024 11:04-0400 Body temperature 97.8 [degF] BOARD CATCHER Darwin Easterwood Work Phone: [facility] 05-11-2024 11:04-0400 Body weight 110.67 kg BOARD CATCHER Darwin Easterwood Work Phone: [facility] 05-11-2024 11:04-0400 Diastolic blood pressure 74 mm[Hg] BOARD CATCHER Darwin Eastermacy Work Phone: [facility] 05-11-2024 11:04-0400 Heart rate 90 /min BOARD CATCHER Darwin Robertermacy Work Phone: [facility] 05-11-2024 11:04-0400 Respiratory rate 20 /min BOARD CATCHER Darwin Jonesermacy Work Phone: [facility] 05-11-2024 11:04-0400 SaO2% (BldA) [Mass fraction] 98 % BOARD CATCHER Darwin [employer] Work Phone: [facility] 05-11-2024 11:04-0400 Systolic blood pressure 126 mm[Hg] BOARD CATCHER [employer] Work Phone: [facility] 05-10-2024 13:50-0400 Body mass index (BMI) [Ratio] 38.39 kg/m2 Brain Seamus DO Work Phone: [facility] 05-10-2024 13:50-0400 Body weight 111.19 kg Brain Seamus DO Work Phone: [facility] 05-10-2024 13:50-0400 Diastolic blood pressure 76 mm[Hg] Brain Seamus DO Work Phone: [facility] 05-10-2024 13:50-0400 Systolic blood pressure 120 mm[Hg] Brain Seamus DO Work Phone: [facility] 04-20-2024 10:37-0400 Body mass index (BMI) [Ratio] 38.53 kg/m2 Brain Seamus DO Work Phone: [facility] 04-20-2024 10:37-0400 Body weight 111.58 kg Brain Seamus DO Work Phone: [facility] 04-20-2024 10:37-0400 Diastolic blood pressure 76 mm[Hg] Brain Seamus DO Work Phone: [facility] 04-20-2024 10:37-0400 Systolic blood pressure 122 mm[Hg] Brain Way DO Work Phone: [facility] 04-07-2024 09:42-0400 Body mass index (BMI) [Ratio] 38.86 kg/m2 Nom Nurse [facility] 04-07-2024 09:42-0400 Body weight 112.55 kg [facility] Nurse [facility] 04-07-2024 09:42-0400 Diastolic blood pressure 70 mm[Hg] [facility] Nurse [facility] 04-07-2024 09:42-0400 Systolic blood pressure 120 mm[Hg] [facility] Nurse [facility] 03-18-2024 11:50-0400 Diastolic blood pressure 83 mm[Hg] Toan Steine [facility] 03-18-2024 11:50-0400 Heart rate 75 /min Toan Steine [facility] 03-18-2024 11:50-0400 Mean blood pressure 97 mm[Hg] Toan Steine [facility] 03-18-2024 11:50-0400 Respiratory rate 16 /min Toan Steine [facility] 03-18-2024 11:50-0400 SaO2% (BldA) [Mass fraction] 98 % Toan Steine [facility] 03-18-2024 11:50-0400 Systolic blood pressure 126 mm[Hg] Toan Steine [facility] 03-18-2024 09:46-0400 Hourly Rounding Toan Steine [facility] 03-18-2024 09:11-0400 Hourly Rounding Toan Steine [facility] 03-18-2024 08:10-0400 Body temperature 98.6 [degF] Toan Steine [facility] 03-18-2024 08:10-0400 Diastolic blood pressure 91 mm[Hg] [place] [facility] 03-18-2024 08:10-0400 Heart rate 98 /min [place] [facility] 03-18-2024 08:10-0400 Hourly Rounding [place] [facility] 03-18-2024 08:10-0400 Respiratory rate 17 /min [place] [facility] 03-18-2024 08:10-0400 SaO2% (BldA) [Mass fraction] 98 % [place] [facility] 03-18-2024 08:10-0400 Systolic blood pressure 135 mm[Hg] [place] [facility] 01-25-2024 08:59-0400 Body height 170.18 cm BOARD CATCHER Darwin EastermyQaa Work Phone: [facility] 01-25-2024 08:59-0400 Body mass index (BMI) [Ratio] 37.4 kg/m2 BOARD CATCHERAkilah Edgara Easterwood Work Phone: [facility] 01-25-2024 08:59-0400 Body temperature 98 [degF] BOARD CATCHER Darwin Easterwood Work Phone: [facility] 01-25-2024 08:59-0400 Body weight 108.4 kg BOARD CATCHER Darwin Easterwood Work Phone: [facility] 01-25-2024 08:59-0400 Diastolic blood pressure 80 mm[Hg] BOARD CATCHER Darwin Easterwood Work Phone: [facility] 01-25-2024 08:59-0400 Heart rate 98 /min BOARD CATCHER Darwin Easterwood Work Phone: [facility] 01-25-2024 08:59-0400 Respiratory rate 20 /min BOARD CATCHER Darwin Easterwood Work Phone: [facility] 01-25-2024 08:59-0400 SaO2% (BldA) [Mass fraction] 99 % BOARD CATCHER Darwin Easterwood Work Phone: [facility] 01-25-2024 08:59-0400 Systolic blood pressure 122 mm[Hg] BOARD CATCHER Darwin Easterwood Work Phone: [facility] 12-24-2023 09:56-0400 Body height 170.18 cm BOARD CATCHER Darwin Easterwood Work Phone: [facility] 12-24-2023 09:56-0400 Body mass index (BMI) [Ratio] 37.7 kg/m2 BOARD CATCHER Darwin Easterwood Work Phone: [facility] 12-24-2023 09:56-0400 Body temperature 97.6 [degF] BOARD CATCHER Darwin Easterwood Work Phone: [facility] 12-24-2023 09:56-0400 Body weight 109.31 kg BOARD CATCHER Darwin Easterwood Work Phone: [facility] 12-24-2023 09:56-0400 Diastolic blood pressure 84 mm[Hg] BOARD CATCHER Darwin Easterwood Work Phone: [facility] 12-24-2023 09:56-0400 Heart rate 102 /min BOARD CATCHER Darwin Easterwood Work Phone: [facility] 12-24-2023 09:56-0400 Respiratory rate 20 /min BOARD CATCHER Darwin Easterwood Work Phone: [facility] 12-24-2023 09:56-0400 SaO2% (BldA) [Mass fraction] 98 % BOARD CATCHER Darwin Easterwood Work Phone: [facility] 12-24-2023 09:56-0400 Systolic blood pressure 126 mm[Hg] BOARD CATCHER Darwin Eastermacy Work Phone: [facility] 11-25-2023 09:01-0400 Body height 170.18 cm BOARD CATCHERAkilah Jonesermacy Work Phone: [facility] 11-25-2023 09:01-0400 Body mass index (BMI) [Ratio] 37.7 kg/m2 BOARD CATCHERAkilah Jonesermacy Work Phone: [facility] 11-25-2023 09:01-0400 Body temperature 97 [degF] BOARD CATCHERAkilah Jonesermacy Work Phone: [facility] 11-25-2023 09:01-0400 Body weight 109.31 kg BOARD CATCHERAkilah Jonesermacy Work Phone: [facility] 11-25-2023 09:01-0400 Diastolic blood pressure 76 mm[Hg] BOARD CATCHER Darwin Jonesermacy Work Phone: [facility] 11-25-2023 09:01-0400 Heart rate 95 /min BOARD CATCHERAkilah Jonesermacy Work Phone: [facility] 11-25-2023 09:01-0400 Respiratory rate 20 /min BOARD CATCHERAkilah Jonesermacy Work Phone: [facility] 11-25-2023 09:01-0400 SaO2% (BldA) [Mass fraction] 98 % BOARD CATCHER Darwin Jonesermacy Work Phone: [facility] 11-25-2023 09:01-0400 Systolic blood pressure 120 mm[Hg] BOARD CATCHER Darwin Jonesermacy Work Phone: [facility] 11-18-2023 08:03-0400 Body weight 110.68 kg Ruby Whittington MD Work Phone: [facility] 11-18-2023 08:03-0400 Diastolic blood pressure 92 mm[Hg] Ruby Whittington MD Work Phone: [facility] 11-18-2023 08:03-0400 Heart rate 100 /min Ruby Whittington MD Work Phone: [facility] 11-18-2023 08:03-0400 Systolic blood pressure 132 mm[Hg] Ruby Whittington MD Work Phone: [facility] 10-20-2023 09:05-0500 Body height 170.18 cm BOARD CATCHER Darwin Eastermacy Work Phone: [facility] 10-20-2023 09:05-0500 Body mass index (BMI) [Ratio] 38.3 kg/m2 BOARD CATCHER Darwin Easterwood Work Phone: [facility] 10-20-2023 09:05-0500 Body temperature 98 [degF] BOARD CATCHER Darwin Eastermacy Work Phone: [facility] 10-20-2023 09:05-0500 Body weight 111.13 kg BOARD CATCHER Darwin Eastermacy Work Phone: [facility] 10-20-2023 09:05-0500 Diastolic blood pressure 78 mm[Hg] BOARD CATCHER Darwin Easterwood Work Phone: [facility] 10-20-2023 09:05-0500 Heart rate 82 /min BOARD CATCHER Darwin Easterwood Work Phone: [facility] 10-20-2023 09:05-0500 Respiratory rate 20 /min BOARD CATCHER Darwin Eastermacy Work Phone: [facility] 10-20-2023 09:05-0500 SaO2% (BldA) [Mass fraction] 98 % BOARD CATCHER Darwin Easterwood Work Phone: [facility] 10-20-2023 09:05-0500 Systolic blood pressure 124 mm[Hg] BOARD CATCHER Darwin Easterwood Work Phone: [facility] 09-29-2023 10:41-0500 Blood Pressure Location [facility] 09-29-2023 10:41-0500 Body temperature 98.24 [degF] [facility] 09-29-2023 10:41-0500 Diastolic blood pressure 78 mm[Hg] [place] 09-29-2023 10:41-0500 Heart rate 95 /min [place] [facility] 09-29-2023 10:41-0500 SaO2% (BldA) [Mass fraction] 97 % [place] 09-29-2023 10:41-0500 Systolic blood pressure 122 mm[Hg] [place] 09-21-2023 09:00-0500 Body height 170.18 cm [employer] Other [employer] Other 09-21-2023 09:00-0500 Body mass index (BMI) [Ratio] 38.37 kg/m2 [employer] Other [employer] Other 09-21-2023 09:00-0500 Body temperature 98 [degF] [employer] Other [employer] Other 09-21-2023 09:00-0500 Body weight 111.13 kg [employer] Other [employer] Other 09-21-2023 09:00-0500 Diastolic blood pressure 84 mm[Hg] Darwin [employer] Other [employer] Other 09-21-2023 09:00-0500 Respiratory rate 20 /min Darwin Easterwood Other [employer] Other 09-21-2023 09:00-0500 SaO2% (BldA) [Mass fraction] 98 % Darwin Easterwood Other [facility] Other 09-21-2023 09:00-0500 Systolic blood pressure 126 mm[Hg] Darwin Easterwood Other [facility] Other 08-25-2023 09:30-0500 Body height 170.18 cm Darwin Easterwood Other [facility] 08-25-2023 09:30-0500 Body mass index (BMI) [Ratio] 39.46 kg/m2 Darwin Easterwood Other [facility] Other 08-25-2023 09:30-0500 Body temperature 97.6 [degF] Darwin Easterwood Other [facility] Other 08-25-2023 09:30-0500 Body weight 114.31 kg Darwin Easterwood Other [facility] Other 08-25-2023 09:30-0500 Body weight 114.3 kg BOARD CATCHER Darwin Easterwood Work Phone: [facility] 08-25-2023 09:30-0500 Diastolic blood pressure 80 mm[Hg] Darwin Easterwood Other [facility] 08-25-2023 09:30-0500 Respiratory rate 20 /min Darwin Easterwood Other [facility] [employer] Other 08-25-2023 09:30-0500 SaO2% (BldA) [Mass fraction] 98 % Darwin Easterwood Other [facility] Other 08-25-2023 09:30-0500 Systolic blood pressure 120 mm[Hg] Darwin Easterwood Other [facility] 07-23-2023 09:30-0500 Body height 170.18 cm BOARD CATCHER Darwin Easterwood Work Phone: [facility] 07-23-2023 09:30-0500 Body weight 116.57 kg BOARD CATCHER Darwin Easterwood Work Phone: [facility] 07-23-2023 09:30-0500 Diastolic blood pressure 80 mm[Hg] BOARD CATCHER Darwin Easterwood Work Phone: [facility] 07-23-2023 09:30-0500 Systolic blood pressure 118 mm[Hg] BOARD CATCHER Darwin Easterwood Work Phone: [facility] 06-23-2023 09:30-0500 Body height 170.18 cm Darwin Easterwood Other [facility] Other 06-23-2023 09:30-0500 Body mass index (BMI) [Ratio] 40.4 kg/m2 Darwin Easterwood Other [facility] Other 06-23-2023 09:30-0500 Body temperature 97.4 [degF] Darwin Easterwood Other [facility] Other 06-23-2023 09:30-0500 Body weight 117.03 kg Darwin Easterwood Other [facility] Other 06-23-2023 09:30-0500 Diastolic blood pressure 78 mm[Hg] Darwin Easterwood Other [facility] Other 06-23-2023 09:30-0500 Respiratory rate 20 /min Darwin Easterwood Other [facility] Other 06-23-2023 09:30-0500 SaO2% (BldA) [Mass fraction] 98 % Darwin Easterwood Other [facility] Other 06-23-2023 09:30-0500 Systolic blood pressure 120 mm[Hg] Darwin Easterwood Other [facility] Other 06-08-2023 14:00-0400 Body temperature 97.2 [degF] Francy Gan PA-C Work Phone: [facility] 05-26-2023 10:30-0400 Body height 170.18 cm Darwin Easterwood Other [facility] Other 05-26-2023 10:30-0400 Body mass index (BMI) [Ratio] 41.5 kg/m2 Darwin Easterwood Other [facility] Other 05-26-2023 10:30-0400 Body temperature 98.4 [degF] Darwin Easterwood Other [facility] Other 05-26-2023 10:30-0400 Body weight 120.2 kg Darwin Easterwood Other [facility] Other 05-26-2023 10:30-0400 Diastolic blood pressure 70 mm[Hg] Darwin Easterwood Other [facility] Other 05-26-2023 10:30-0400 Respiratory rate 20 /min Darwin Easterwood Other [facility] Other 05-26-2023 10:30-0400 SaO2% (BldA) [Mass fraction] 97 % Darwin Easterwood Other [facility] Other 05-26-2023 10:30-0400 Systolic blood pressure 112 mm[Hg] Darwin Easterwood Other [facility] Other 04-28-2023 09:15-0400 Body height 170.18 cm Darwin Easterwood Other [facility] Other 04-28-2023 09:15-0400 Body mass index (BMI) [Ratio] 41.34 kg/m2 Darwin Easterwood Other [facility] Other 04-28-2023 09:15-0400 Body temperature 97.2 [degF] Darwin Easterwood Other [facility] Other 04-28-2023 09:15-0400 Body weight 119.75 kg Darwin Easterwood Other [facility] Other 04-28-2023 09:15-0400 Diastolic blood pressure 82 mm[Hg] Darwin Easterwood Other [facility] Other 04-28-2023 09:15-0400 Respiratory rate 20 /min Darwin Easterwood Other [facility] Other 04-28-2023 09:15-0400 SaO2% (BldA) [Mass fraction] 97 % Darwin Easterwood Other [facility] Other 04-28-2023 09:15-0400 Systolic blood pressure 120 mm[Hg] Darwin Easterwood Other [facility] Other 04-16-2023 11:00-0400 Body height 170.18 cm Darwin Easterwood Other [facility] Other 04-16-2023 11:00-0400 Body mass index (BMI) [Ratio] 41.03 kg/m2 Darwin Easterwood Other [facility] Other 04-16-2023 11:00-0400 Body temperature 97.8 [degF] Darwin Easterwood Other [facility] Other 04-16-2023 11:00-0400 Body weight 118.84 kg Darwin Easterwood Other [facility] Other 04-16-2023 11:00-0400 Diastolic blood pressure 80 mm[Hg] Darwin Easterwood Other [facility] Other 04-16-2023 11:00-0400 Respiratory rate 20 /min Darwin Easterwood Other [facility] Other 04-16-2023 11:00-0400 SaO2% (BldA) [Mass fraction] 98 % Darwin Easterwood Other [facility] Other 04-16-2023 11:00-0400 Systolic blood pressure 120 mm[Hg] Darwin Easterwood Other [facility] Other 03-22-2023 22:51-0400 Diastolic blood pressure 74 mm[Hg] Gabriel Curtis [facility] 03-22-2023 22:51-0400 Heart rate 80 /min Kaylinn Dokken [facility] 03-22-2023 22:51-0400 Mean blood pressure 92 mm[Hg] Kaylinn Dokken [facility] 03-22-2023 22:51-0400 Respiratory rate 16 /min Kaylinn Dokken [facility] 03-22-2023 22:51-0400 SaO2% (BldA) [Mass fraction] 98 % Kaylinn Dokken [facility] 03-22-2023 22:51-0400 Systolic blood pressure 128 mm[Hg] Kaylinn Dokken [facility] 03-22-2023 21:24-0400 Heart rate 76 /min Kaylinn Dokken [facility] 03-22-2023 21:24-0400 Respiratory rate 16 /min Kaylinn Dokken [facility] 03-22-2023 21:24-0400 SaO2% (BldA) [Mass fraction] 97 % Kaylinn Dokken [facility] 03-22-2023 19:54-0400 Body temperature 98.06 [degF] Kaylinn Dokken [facility] 03-22-2023 19:54-0400 Diastolic blood pressure 89 mm[Hg] Kaylinn Dokken [facility] 03-22-2023 19:54-0400 Heart rate 81 /min Kaylinn Dokken [facility] 03-22-2023 19:54-0400 Respiratory rate 18 /min Kaylinn Dokken [facility] 03-22-2023 19:54-0400 SaO2% (BldA) [Mass fraction] 99 % Gabriel Curtis [facility] 03-22-2023 19:54-0400 Systolic blood pressure 138 mm[Hg] Gabriel Ramosen [facility] 03-22-2023 15:18-0400 Body height 170.18 cm BOARD CATCHER Darwin Easterwood Work Phone: [facility] 03-22-2023 15:18-0400 Body temperature 98.2 [degF] BOARD CATCHER Darwin Easterwood Work Phone: [facility] 03-22-2023 15:18-0400 Body weight 120.5 kg BOARD CATCHER Darwin Easterwood Work Phone: [facility] 03-22-2023 15:18-0400 Diastolic blood pressure 74 mm[Hg] BOARD CATCHER Darwin Easterwood Work Phone: [facility] 03-22-2023 15:18-0400 Heart rate 92 /min BOARD CATCHER Darwin Easterwood Work Phone: [facility] 03-22-2023 15:18-0400 Respiratory rate 20 /min BOARD CATCHER Darwin Easterwood Work Phone: [facility] 03-22-2023 15:18-0400 SaO2% (BldA) [Mass fraction] 97 % BOARD CATCHER Darwin Easterwood Work Phone: [facility] 03-22-2023 15:18-0400 Systolic blood pressure 175 mm[Hg] BOARD CATCHER Darwin Easterwood Work Phone: [facility] 10-05-2022 09:00-0500 Body height 170.18 cm Ofelia Hester Other [facility] Other 10-05-2022 09:00-0500 Body mass index (BMI) [Ratio] 37.21 kg/m2 Ofelia Missler Other [facility] Other 10-05-2022 09:00-0500 Body weight 107.78 kg Ofelia Missler Other [facility] Other 10-05-2022 09:00-0500 Diastolic blood pressure 45 mm[Hg] Ofelia Missler Other [facility] Other 10-05-2022 09:00-0500 Respiratory rate 18 /min Ofelia Missler Other [facility] Other 10-05-2022 09:00-0500 SaO2% (BldA) [Mass fraction] 97 % Ofelia Missler Other [facility] Other 10-05-2022 09:00-0500 Systolic blood pressure 100 mm[Hg] Ofelia Missler Other [facility] Other 09-02-2022 11:30-0500 Body height 170.18 cm Ofelia Missler Other [facility] Other 09-02-2022 11:30-0500 Body mass index (BMI) [Ratio] 38.04 kg/m2 Ofelia Missler Other [facility] Other 09-02-2022 11:30-0500 Body weight 110.18 kg Ofelia Missler Other [facility] Other 09-02-2022 11:30-0500 Diastolic blood pressure 79 mm[Hg] Ofelia Missler Other [facility] Other 09-02-2022 11:30-0500 Respiratory rate 18 /min Ofelia Missler Other [facility] Other 09-02-2022 11:30-0500 SaO2% (BldA) [Mass fraction] 96 % Ofelia Missler Other [facility] Other 09-02-2022 11:30-0500 Systolic blood pressure 119 mm[Hg] Ofelia Missler Other [facility] Other 08-25-2022 14:00-0500 Body height 170.18 cm Lilly Fitt Other [facility] Other 08-25-2022 14:00-0500 Body mass index (BMI) [Ratio] 38.01 kg/m2 Lilly Fitt Other [facility] Other 08-25-2022 14:00-0500 Body weight 110.09 kg Lilly Fitt Other [facility] Other 07-31-2022 09:45-0500 Body height 170.18 cm Ofelia Missler Other [facility] Other 07-31-2022 09:45-0500 Body mass index (BMI) [Ratio] 38.2 kg/m2 Ofelia Missler Other [facility] Other 07-31-2022 09:45-0500 Body weight 110.63 kg Ofelia Missler Other [facility] Other 07-31-2022 09:45-0500 Diastolic blood pressure 78 mm[Hg] Ofelia Missler Other [facility] Other 07-31-2022 09:45-0500 Respiratory rate 18 /min Ofelia Missler Other [facility] Other 07-31-2022 09:45-0500 SaO2% (BldA) [Mass fraction] 96 % Ofelia Missler Other [facility] Other 07-31-2022 09:45-0500 Systolic blood pressure 135 mm[Hg] Ofelia Missler Other [facility] Other 07-14-2022 08:49-0500 Body height 170.5 cm Ruby Whittington MD Work Phone: [facility] 07-14-2022 08:49-0500 Body weight 111.58 kg Ruby Whittington MD Work Phone: [facility] 07-14-2022 08:49-0500 Diastolic blood pressure 73 mm[Hg] Ruby Whittington MD Work Phone: [facility] 07-14-2022 08:49-0500 Heart rate 92 /min Ruby Whittington MD Work Phone: [facility] 07-14-2022 08:49-0500 Systolic blood pressure 140 mm[Hg] Ruby Whittington MD Work Phone: [facility] 06-17-2022 15:45-0400 Body height 170.18 cm Ofelia Missler Other [facility] Other 06-17-2022 15:45-0400 Body mass index (BMI) [Ratio] 38.99 kg/m2 Ofelia Missler Other [facility] Other 06-17-2022 15:45-0400 Body weight 112.95 kg Ofelia Missler Other [facility] Other 06-17-2022 15:45-0400 Diastolic blood pressure 90 mm[Hg] Ofelia Missler Other [facility] Other 06-17-2022 15:45-0400 Respiratory rate 18 /min Ofelia Missler Other [facility] Other 06-17-2022 15:45-0400 SaO2% (BldA) [Mass fraction] 96 % Ofelia Missler Other [facility] Other 06-17-2022 15:45-0400 Systolic blood pressure 140 mm[Hg] Ofelia Missler Other [facility] Other 06-04-2022 13:00-0400 Body height 170.18 cm Sima Ross Other [facility] Other 06-04-2022 13:00-0400 Body mass index (BMI) [Ratio] 38.37 kg/m2 Sima Ross Other [facility] Other 06-04-2022 13:00-0400 Body temperature 98.6 [degF] Sima Ross Other [facility] Other 06-04-2022 13:00-0400 Body weight 111.13 kg Sima Ross Other [facility] Other 06-04-2022 13:00-0400 Diastolic blood pressure 83 mm[Hg] Sima Ross Other [facility] Other 06-04-2022 13:00-0400 Respiratory rate 18 /min Sima Ross Other [facility] Other 06-04-2022 13:00-0400 SaO2% (BldA) [Mass fraction] 99 % Sima Ross Other [facility] Other 06-04-2022 13:00-0400 Systolic blood pressure 124 mm[Hg] Sima Ross Other [facility] Other 05-27-2022 12:15-0400 Body height 170.18 cm Lilly Neymart Other [facility] Other 05-18-2022 09:30-0400 Body height 170.18 cm Ofelia Missler Other [facility] Other 05-18-2022 09:30-0400 Body mass index (BMI) [Ratio] 39.37 kg/m2 Ofelia Missler Other [facility] Other 05-18-2022 09:30-0400 Body temperature 98.1 [degF] Ofelia Missler Other [facility] Other 05-18-2022 09:30-0400 Body weight 114.04 kg Ofelia Missler Other [facility] Other 05-18-2022 09:30-0400 Diastolic blood pressure 80 mm[Hg] Ofelia Missler Other [facility] Other 05-18-2022 09:30-0400 Respiratory rate 18 /min Ofelia Missler Other [facility] Other 05-18-2022 09:30-0400 SaO2% (BldA) [Mass fraction] 99 % Ofelia Hester Other [facility] Other 05-18-2022 09:30-0400 Systolic blood pressure 115 mm[Hg] Ofelia Hester Other [facility] Other 04-17-2022 09:30-0400 Body height 170.18 cm Darwin [employer] Other [facility] Other 04-17-2022 09:30-0400 Body mass index (BMI) [Ratio] 39.15 kg/m2 Darwin [employer] Other [facility] Other 04-17-2022 09:30-0400 Body temperature 96.9 [degF] Darwin [employer] Other [facility] Other 04-17-2022 09:30-0400 Body weight 113.4 kg Darwin EastermyQaa Other [facility] Other 04-17-2022 09:30-0400 Diastolic blood pressure 82 mm[Hg] Darwin Easterwood Other [facility] Other 04-17-2022 09:30-0400 Respiratory rate 20 /min Darwin Easterwood Other [facility] Other 04-17-2022 09:30-0400 SaO2% (BldA) [Mass fraction] 99 % Darwin [employer] Other [facility] Other 04-17-2022 09:30-0400 Systolic blood pressure 124 mm[Hg] Darwin Easterwood Other [facility] Other 02-18-2022 21:41-0400 Diastolic blood pressure 88 mm[Hg] Fazal Antoni [facility] 02-18-2022 21:41-0400 Heart rate 84 /min Fazal Antoni [facility] 02-18-2022 21:41-0400 Mean blood pressure 101 mm[Hg] Fazal Antoni [facility] 02-18-2022 21:41-0400 Respiratory rate 17 /min Fazal Antoni [facility] 02-18-2022 21:41-0400 SaO2% (BldA) [Mass fraction] 98 % Darwin Jones Other [facility] [employer] Other 02-18-2022 21:41-0400 Systolic blood pressure 126 mm[Hg] Fazal Antoni [facility] 02-18-2022 20:42-0400 gluc 106 mg/dL Fazal Antoni [facility] 02-18-2022 20:42-0400 gluc Fazal Antoni [facility] 02-18-2022 20:33-0400 Body temperature 98.06 [degF] Fazal Antoni [facility] 02-18-2022 20:33-0400 Diastolic blood pressure 99 mm[Hg] Fazal Antoni [facility] 02-18-2022 20:33-0400 Heart rate 99 /min Fazal Antoni [facility] 02-18-2022 20:33-0400 Respiratory rate 18 /min Fazal Antoni [facility] 02-18-2022 20:33-0400 Systolic blood pressure 153 mm[Hg] Fazal Corrales [facility] 02-18-2022 10:00-0400 Body height 170.18 cm Darwin Easterwood Other [facility] Other 02-18-2022 10:00-0400 Body mass index (BMI) [Ratio] 38.52 kg/m2 Darwin Easterwood Other [facility] Other 02-18-2022 10:00-0400 Body temperature 97 [degF] Darwin Easterwood Other [facility] Other 02-18-2022 10:00-0400 Body weight 111.59 kg Darwin Easterwood Other [facility] Other 02-18-2022 10:00-0400 Diastolic blood pressure 82 mm[Hg] Darwin Easterwood Other [facility] Other 02-18-2022 10:00-0400 Respiratory rate 20 /min Darwin Easterwood Other [facility] Other 02-18-2022 10:00-0400 Systolic blood pressure 118 mm[Hg] Darwin Easterwood Other [facility] Other 02-11-2022 12:00-0400 Body height 170.18 cm Darwin Easterwood Other [facility] Other 02-11-2022 12:00-0400 Body mass index (BMI) [Ratio] 37.9 kg/m2 Darwin Easterwood Other [facility] Other 06-29-2022 12:00-0400 Body temperature 97.2 [degF] Darwin Jones Other [facility] Other 02-11-2022 12:00-0400 Body weight 109.77 kg Darwin Jones Other [facility] Other 02-11-2022 12:00-0400 Diastolic blood pressure 88 mm[Hg] Darwin Jones Other [facility] Other 02-11-2022 12:00-0400 Respiratory rate 20 /min Darwin Jones Other [facility] Other 02-11-2022 12:00-0400 SaO2% (BldA) [Mass fraction] 98 % Darwin Jones Other [facility] Other 02-11-2022 12:00-0400 Systolic blood pressure 126 mm[Hg] Darwin Jones Other [facility] Other 09-03-2021 10:02-0500 Diastolic blood pressure 86 mm[Hg] Unknown Unknown [employer] [address] DO Work Phone: 09-03-2021 10:02-0500 Systolic blood pressure 110 mm[Hg] Unknown Unknown [employer] [place] [address] DO Work Phone: 09-03-2021 09:55-0500 Body height 170.18 cm Unknown [facility] [place] [facility] DO Work Phone: 09-03-2021 09:55-0500 Body mass index (BMI) [Ratio] 32.36 kg/m2 Unknown Unknown [facility] [place] [facility] DO Work Phone: 09-03-2021 09:55-0500 Body surface area Derived from formula 2.05 m2 Unknown Unknown [facility] 600 DO Work Phone: 09-03-2021 09:55-0500 Body weight 93.71 kg Unknown Unknown [facility] 600 DO Work Phone: 09-03-2021 09:55-0500 Diastolic blood pressure 84 mm[Hg] Unknown Unknown [facility] 600 DO Work Phone: 09-03-2021 09:55-0500 Heart rate 72 /min Unknown Unknown [facility] 600 DO Work Phone: 09-03-2021 09:55-0500 Systolic blood pressure 122 mm[Hg] Unknown Unknown [facility] 600 DO Work Phone: Encounters Encounter Date Encounter Type Care Provider Facility Start: 10-05-2024 End: 10-05-2024 flow sheet Mya Finch PA Work Phone: [facility] Comment on above: 35 weeks gestation o f ; Third trimester Start: 10-05-2024 End: 10-05-2024 ambulatory MYA FINCH Not Available Start: 10-05-2024 End: 10-05-2024 Clinisync Result Encounter Brain Seamus DO Work Phone: [facility] External Department Unsolicited Start: 10-05-2024 End: 10-05-2024 Clinisync Result Encounter Brain Seamus DO Work [...] End: 09-21-2024 Patient encounter procedure Darwin Jones BOARD CATCHER Work Phone: [facility] [place] Work Phone: Start: 09-21-2024 End: 09-21-2024 ambulatory Darwin Jones BOARD CATCHER Work Phone: [facility] Work Phone: Start: 09-19-2024 End: [...] End: 09-14-2024 Patient encounter procedure Darwin Jones BOARD CATCHER Work Phone: [facility] Work Phone: Start: 09-14-2024 End: 09-14-2024 ambulatory Darwin Jones BOARD CATCHER Work Phone: [facility] Work Phone: Start: 09-11-2024 End: 09-11-2024 Clinisync [...] / Non-visit Darwin corral APRN Work Phone: [facility] [place] Work Phone: Start: 09-06-2024 End: 09-06-2024 Emergency department patient visit Flash Franco [facility] Start: 09-05-2024 ambulatory Rogelio Nath Facility :[facility] Start: 09-05-2024 End: 09-05-2024 ambulatory Rogelio Nath Facility:[facility] Start: 09-05-2024 Emergency department patient visit DO Gabriel Curtis Facility:[facility] Start: 09-05-2024 End: 09-05-2024 Observation Rogelio Nath [facility] Start: 08-25-2024 End: 08-25-2024 Clinisync Result Encounter Brain Seamus DO Work Phone: [facility] External Department Unsolicited Start: 08-25-2024 End: 08-25-2024 Clinisync Result Encounter Brain Seamus DO Work Phone: [facility] External Department Unsolicited Start: 08-25-2024 End: 08-25-2024 ambulatory Darwin Jones BOARD CATCHER Work Phone: [facility] Work Phone: Start: 08-25-2024 End: 08-25-2024 Patient encounter procedure Darwin Jones BOARD CATCHER Work Phone: [facility] Work Phone: Start: 08-23-2024 End: [...] Not Available Start: 08-02-2024 End: 08-02-2024 ambulatory [facility] Start: 07-31-2024 End: 07-31-2024 Patient encounter procedure Darwin Jones BOARD CATCHER Work Phone: [facility] [place] Work Phone: Start: 07-31-2024 End: 07-31-2024 ambulatory Brain Seamus Facility:[facility] Comment on above: History of pericardi tis (Primary Dx); Mild concentric left ventricular hypertrophy (LVH); 25 weeks gestation of Start: 07-27-2024 End: 07-27-2024 ambulatory NO PCP NO PCP [facility] Start: 07-11-2024 End: 07-11-[address] DO Work Phone: [facility] Comment on above: 22 weeks gestation o f ; Second trimester ; Nausea and vomiting during ; Diabetes mellitus screening Start: 06-28-2024 End: 06-28-2024 Patient encounter procedure Darwin Jones BOARD CATCHER Work Phone: [facility] [place] Work Phone: Start: 06-28-2024 End: 06-28-2024 ambulatory Darwin Jaclyn Jones BOARD CATCHER Work Phone: [facility] Work Phone: Start: 2024 End: 2024 Office consultation new/estab patient 60 min Hayden Reilly MD Work Phone: [facility] [place] Comment on above: 20 weeks gestation o f (Primary Dx); Tiffani's disease; 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; Hx of preeclampsia, prior , currently ; Elevated BP without diagnosis of hypertension; History of pericarditis; with history of section, antepartum; History of macrosomia in infant in prior , currently ; Obesity affecting , antepartum, unspecified obesity type; Depression affecting Start: 2024 End: [facility] Start: 06-22-2024 End: 06-22-2024 Patient encounter procedure Darwin Jones BOARD CATCHER Work Phone: [facility] [place] Work Phone: Start: 06-22-2024 End: 06-22-2024 ambulatory Darwincary Jones BOARD CATCHER Work Phone: [facility] Work Phone: Start: 06-21-2024 End: 06-21-2024 Chart abstracting Hayden Reilly MD Work Phone: [facility] Start: 06-12-2024 End: 06-12-2024 Bamboo flowsheet Brain [...] 05-24-2024 End: 05-24-2024 Patient encounter procedure SHIRLEY Larasaint joseph Work Phone: [facility] [place] Work Phone: Start: 05-24-2024 End: 05-24-2024 [facility] Work [facility]: [facility] Work Phone: Start: 05-11-2024 End: 05-11-2024 ambulatory SHIRLEY Anaya [facility] Work Phone: [facility] Work Phone: Start: 05-11-2024 End: 05-11-2024 Encounter for general adult medical examination without abnormal findings [facility]: [facility] Start: 05-11-2024 End: 05-11-2024 Patient encounter procedure SHIRLEY Larasaint joseph Work Phone: [facility] Family [facility] Work Phone: Start: 05-10-2024 End: 05-10-2024 Bamboo flowsheet Brain Seamus DO Work Phone: [facility] Start: 05-10-2024 End: 05-10-2024 Bamboo flowsheet Brain Seamus DO Work Phone: [facility] Start: 05-10-2024 End: 05-10-2024 flow sheet Brain Seamus DO Work Phone: [facility] Comment on above: Second trimester pre gnancy Start: 05-10-2024 End: 05-10-2024 ambulatory BRAIN SEAMUS Not Available Start: 04-20-2024 End: 04-20-2024 Bamboo flowsheet Brain Seamus DO Work Phone: [facility] Start: 04-20-2024 End: 04-25-2024 Clinisync Result Encounter Brain Seamus DO Work Phone: [facility] External Department Unsolicited Start: 04-20-2024 End: 04-22-2024 External Result Encounter Brain Seamus DO Work Phone: [facility] External Department Unsolicited Start: 04-20-2024 End: 04-25-2024 External Result Encounter Brain Seamus DO Work Phone: [facility] External Department Unsolicited Start: 04-20-2024 End: 04-20-2024 Patient encounter procedure Brain Seamus DO Work Phone: [facility] Start: 04-20-2024 End: 04-20-2024 Periodic preventive med est patient 18-39 yrs Brain Seamus DO Work Phone: [facility] Comment on above: First trimester preg gwen; Well woman exam with routine gynecological exam; Screen for STD (sexually transmitted disease); Vaginal discharge Start: 04-20-2024 End: 04-20-2024 ambulatory BRAIN SEAMUS Not Available Start: 04-13-2024 End: 04-13-2024 Clinisync Result Encounter Brain Seamus DO Work Phone: [facility] External [facility] Unsolicited Start: 04-13-2024 End: 04-13-2024 Clinisync Result Encounter Brain Way DO Work Phone: [facility] External Department Unsolicited Start: 04-07-2024 End: 04-07-2024 Office outpatient visit 5 minutes [facility] Se[facility] Nurse [facility] Comment on above: GA: 9w2d Start: 04-07-2024 End: 04-07-2024 ambulatory MYA FINCH Not Available Start: 04-06-2024 End: 04-06-2024 Departed Referred BOARD CATCHER Darwin Jonesermacy Work Phone: [facility] Start: 04-06-2024 End: 04-06-2024 ambulatory SHIRLEY Jonesermacy Work Phone: [facility] Work Phone: Start: 03-21-2024 End: 03-21-[address] Not Available Start: 03-18-2024 End: 03-18-2024 Emergency department patient visit [place] [facility] Start: 02-24-2024 End: 02-24-2024 Patient encounter procedure SHIRLEY Jones Work Phone: [facility] Work Phone: Start: 02-24-2024 End: 02-24-2024 ambulatory BOARD CATCHER Darwin Jonesermacy Work Phone: [facility] Work Phone: Start: 01-25-2024 End: 01-25-2024 ambulatory BOARD CATCHER Darwin Jonesermacy Work Phone: [facility] Work Phone: Start: 01-25-2024 End: 01-25-2024 Patient encounter procedure SHIRLEY Jonesermacy Work Phone: [facility] Work Phone: Start: 01-24-2024 End: 01-24-2024 Patient encounter procedure BOARD CATCHER Darwin Easterwood Work Phone: [facility] [place] Work Phone: Start: 01-24-2024 End: 01-24-2024 ambulatory BOARD CATCHER Darwin J Easterwood Work Phone: [facility] Work Phone: Start: 12-27-2023 End: 12-27-2023 Patient encounter procedure BOARD CATCHER Darwin Roberterwood Work Phone: [facility] [place] Work Phone: Start: 12-27-2023 End: 12-27-2023 ambulatory BOARD CATCHER Darwin J Easterwood Work Phone: [facility] Work Phone: Start: 12-24-2023 End: 12-24-2023 ambulatory BOARD CATCHER Darwin J Easterwood Work Phone: [facility] Work Phone: Start: 12-24-2023 End: 12-24-2023 Patient encounter procedure BOARD CATCHER Darwin Roberterwood Work Phone: [facility] Work Phone: Start: 11-30-2023 End: 11-30-2023 Patient encounter procedure BOARD CATCHER Darwin Roberterwood Work Phone: [facility] [place] Work Phone: Start: 11-30-2023 End: 11-30-2023 ambulatory BOARD CATCHER Darwin J Easterwood Work Phone: [facility] Work Phone: Start: 11-25-2023 End: 11-25-2023 ambulatory BOARD CATCHER Darwin J Easterwood Work Phone: [facility] Work Phone: Start: 11-25-2023 End: 11-25-2023 Patient encounter procedure SHIRLEY Jones Work Phone: [facility] Work Phone: Start: 11-18-2023 End: 11-19-2023 ambulatory RUBY WHITTINGTON Facility:[facility] Start: 11-18-2023 End: 11-18-2023 Patient encounter procedure Ruby Whittington MD Work Phone: Endocrinology Comment on above: 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); Class 2 obesity; Irregular menstruation, unspecified; Female infertility; Calculus of kidney Start: 11-01-2023 End: 11-01-2023 Patient encounter procedure BOARD CATCHERAkilah Jones Work Phone: [facility] [place] Work Phone: Start: 11-01-2023 End: 11-01-2023 ambulatory BOARD CATCHERAkilah Jones Work Phone: [facility] Work Phone: Start: 10-20-2023 End: 10-20-2023 Patient encounter procedure SHIRLEY Jones Work Phone: [facility] Work Phone: Start: 10-01-2023 End: 10-01-2023 ambulatory BOARD CATCHER Darwin Jones Work Phone: [facility] Work Phone: Start: 10-01-2023 End: 10-01-2023 Patient encounter procedure BOARD CATCHERAkilah Jones Work Phone: [facility] [place] Work Phone: Start: 09-29-2023 End: 09-29-2023 ambulatory Tyrone Rock Facility:[facility] Start: 09-29-2023 End: 09-29-2023 Patient encounter procedure Tyrone Rock [facility] Start: 09-21-2023 End: 09-21-2023 ambulatory Darwin Easterwood Other [employer] Other Start: 09-21-2023 Office outpatient vi sit 15 minutes Darwin Easterwood [facility] [place] Start: 08-30-2023 Patient encounter procedure BOARD CATCHER Darwin Easterwood Work Phone: [facility]- Start: 08-25-2023 End: 08-25-2023 ambulatory Darwin Easterwood Other [employer] Other Start: 08-25-2023 Follow-up encounter Darwin Easterwood [facility] [place] Start: 08-25-2023 End: 08-25-2023 Patient encounter procedure BOARD CATCHER Darwin Easterwood Work Phone: [facility] [place] Work Phone: Start: 07-23-2023 End: 07-23-2023 Patient encounter procedure BOARD CATCHER Darwin Easterwood Work Phone: [facility] [place] Work Phone: Start: 07-16-2023 Telephone encounter Ruby sneed MD Work Phone: Endocrinology Comment on above: Appointment Start: 06-23-2023 End: 06-23-2023 ambulatory Darwin Easterwood Other [employer] Other Start: 06-23-2023 Office outpatient vi sit 15 minutes Darwin Easterwood [facility] [place] Start: 06-08-2023 End: 06-08-2023 ambulatory JENAYE [facility] Start: 06-08-2023 End: 06-08-2023 Patient encounter procedure Francy Gan PA-C Work Phone: Otolaryngology Comment on above: Dysphagia, unspecifi ed type (Primary Dx); LPRD (laryngopharyngeal reflux disease) Start: 05-26-2023 End: 05-26-2023 ambulatory Darwin Jones Other [employer] Other Start: 05-26-2023 [facility] vi [facility] Start: 05-06-2023 End: 05-06-2023 ambulatory BOARD CATCHER Darwin Larasaint joseph Work Phone: [facility] Work Phone: Start: 05-06-2023 End: 05-06-2023 Patient encounter procedure BOARD CATCHER Darwin Laramacy Work Phone: [facility] [place] Work Phone: Start: 04-28-2023 End: 04-28-2023 ambulatory Darwin Robertanisamacy Other [employer] Other Start: 04-28-2023 Office outpatient vi sit 40 [facility] Start: 04-16-2023 End: 04-16-2023 ambulatory Darwin Jones Other [employer] Other Start: 04-16-2023 Encounter for genera l adult medical examination without abnormal findings [facility] Start: 04-16-2023 Periodic preventive med est patient 18-39 yrs Darwin Jones [facility] Start: 04-08-2023 End: 04-08-2023 ambulatory BOARD CATCHER Darwin Larasaint joseph Work Phone: [facility] Work Phone: Start: 04-08-2023 End: 04-08-2023 Departed Referred BOARD CATCHER Darwin Jones Work Phone: [facility]-Employee Benefit Screening Start: 03-22-2023 End: 03-22-2023 Emergency department patient visit Gabriel Curtis [facility] Start: 03-22-2023 End: 03-22-2023 Emergency department patient visit SHIRLEY Jones Work Phone: [facility]Emer[facility] Work Phone: Start: 02-28-2023 End: 02-28-2023 Departed Referred SHIRLEY Jones Work Phone: [facility]-Employee Benefit Screening Start: 02-28-2023 End: 02-28-2023 ambulatory BOARD CATCHER Darwin Jones Work Phone: [facility] Work Phone: Start: 02-28-2023 End: 02-28-2023 Patient encounter procedure BOARD CATCHERAkilah Jones Work Phone: [facility] [address] Work Phone: Start: 12-10-2022 End: 12-10-2022 ambulatory BOARD CATCHER Darwin Jones Work Phone: [facility] Work Phone: Start: 12-10-2022 End: 12-10-2022 Patient encounter procedure BOARD CATCHER Darwin Jones Work Phone: [facility] [place] Work Phone: Start: 12-09-2022 End: 12-09-[address] NONE LISTED REQUEST Facility: Start: 12-08-2022 End: 12-08-2022 ambulatory Ofelia Hester Other [facility] [employer] Other Start: 12-08-2022 Encounter by ruben limon [facility] Start: 10-22-2022 End: 10-22-2022 ambulatory Lilly Luke Other [employer] Other Start: 10-22-2022 Telephone encounter Lilly Luke [facility] Start: 10-16-2022 End: 10-16-2022 ambulatory SHIRLEY [employer] Work Phone: [facility] Work Phone: Start: 10-16-2022 End: 10-16-2022 Patient encounter procedure SHIRLEY Orosco [employer] Work Phone: [facility] [place] Work Phone: Start: 10-15-2022 End: 10-15-2022 ambulatory Ofelia Hester Other [employer] Other Start: 10-15-2022 Telephone encounter [facility]elia [facility] Start: 10-05-2022 Registered Recurring SHIRLEY Orosco [employer] Work Phone: [facility]Weight Management Work Phone: Start: 10-05-2022 (FCCCWMNF/U) Weight Management f/u Ofelia [facility] Start: 10-05-2022 End: 10-05-2022 ambulatory Ofelia Hester Other [employer] Other Start: 09-28-2022 ambulatory Ruby Whittington MD Work Phone: Endocrinology Comment on above: Synthroid Start: 09-02-2022 (FCCCWMNF/U) Weight Management f/u Ofelia Hester [facility] Start: 09-02-2022 End: 09-02-2022 ambulatory Ofeliaher Couchler Other [employer] Other Start: 08-25-2022 ([facility] WMNI) WMN Insujatha restrepol Provider Lilly Luke [facility] Start: 08-25-2022 End: 08-25-2022 ambulatory Lilly Luke Other [employer] Other Start: 07-31-2022 ([facility] Weight Management f/u Ofelia 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 Start: 06-17-2022 End: 06-17-2022 ambulatory Ofelia Hester Other [employer] Other Start: 06-04-2022 End: 06-04-2022 ambulatory Sima Ross Other [employer] Other Start: 06-04-2022 Office outpatient vi sit 15 minutes Sima Ross [facility] Start: 05-27-2022 End: 05-27-2022 ambulatory Lilly Luke Other [employer] Other Start: 05-27-2022 IBT FOR OBESITY GROU P 2-10 30M Lilly Luke [facility] Start: 05-25-2022 End: 05-25-2022 ambulatory Darwin Easterwood Other [employer] Other Start: 05-25-2022 Telephone encounter Geoffrey murphy MD Work Phone: Endocrinology Comment on above: Appointment (LVM for patient that appt on 05/[address] George has been rescheduled to 07/08 [facility] with Dr. Robertson. sending mail reminder as well. ) Start: 05-19-2022 End: 05-19-2022 ambulatory Ofelia Hester Other [employer] Other Start: 05-19-2022 Telephone encounter Ofelia Hester [facility] Start: 05-18-2022 End: 05-18-2022 ambulatory Ofelia Hester Other [employer] Other Start: 05-18-2022 Nutrition therapy Ofelia Hester [facility] Start: 04-21-2022 End: 04-21-2022 ambulatory Darwin Easterwood Other [employer] Other Start: 04-21-2022 Telephone encounter Darwin Easterwood [facility] Start: 04-17-2022 End: 04-17-2022 ambulatory Darwin Easterwood Other [employer] Other Start: 04-17-2022 Office outpatient vi sit 25 minutes Darwin Easterwood [facility] Start: 04-15-2022 End: 04-15-2022 ambulatory Darwin Easterwood Other [employer] Other Start: 04-15-2022 Telephone encounter Darwin Easterwood [facility] Start: 04-14-2022 End: 04-14-2022 Patient encounter procedure PHYSICIAN NO [facility] Start: 04-10-2022 End: 04-10-2022 ambulatory Lillyakilah Luke Other [employer] Other Start: 04-10-2022 Telephone encounter Lilly Luke [facility] Start: 04-06-2022 End: 04-06-2022 Patient encounter procedure PHYSICIAN NO [facility] Start: 02-24-2022 End: 02-24-2022 ambulatory Darwin Easterwood Other [employer] Other Start: 02-24-2022 Telephone encounter Darwin Easterwood [facility] Start: 02-18-2022 End: 02-18-2022 Emergency department patient visit Fazal Corrales [facility] Start: 02-18-2022 End: 02-18-2022 ambulatory Darwin Easterwood Other [employer] Other Start: 02-18-2022 Office outpatient vi sit 25 minutes Darwin Easterwood [facility] Start: 02-18-2022 Telephone encounter Darwin Easterwood [facility] Start: 02-13-2022 End: 02-13-2022 Patient encounter [facility] Start: 02-11-2022 End: 02-11-2022 ambulatory Darwin Easterwood Other [employer] Other Start: 02-11-2022 Office outpatient ne w 45 minutes Darwin Easterwood [facility] Start: 02-10-2022 End: 02-10-2022 Departed Referred PHYSICIAN NO [facility]-Employee Benefit Screening Start: 09-04-2021 Chart Update Unknown [facility] Work Phone: Start: 09-03-2021 Office outpatient ne w 45 minutes Unknown Unknown -[facility] 600 DO Work Phone: Procedures Date Procedure Procedure Detail Performing Clinician Start: 10-05-2024 Urnls dip stick/tabl et rgnt non-auto w/o micrscp Mya MCMILLAN Work Phone: Start: 10-05-2024 US OB BPP W NON-STRESS Brain Seamus DO Work Phone: Start: 09-29-2024 US OB BPP W NON-STRESS Brain Seamus DO Work Phone: Start: 09-22-2024 US OB BPP W NON-STRESS [...] 04-13-2024 TBH BOX TEST SENT OUT C orey Seamus DO Work Phone: Start: 04-08-2024 Drug scrn 1+ class nonchromo Not In System Ref Prov Start: 04-07-2024 Urnls dip stick/tabl et rgnt non-auto w/o micrscp Brain Seamus DO Work Phone: Start: 02-13-2022 US scan of thyroid PHYS ICIAN NO FAMILY section Unknown Unk nown section Fazal Whiten er NEGATED: Highlighted row has not occurred! Total colonoscopy Unknown Unknown Plan of Treatment Date Care Activity Detail Author Start: 04-20-2027 Screening for malignant neoplasm of cervix Pap Smear [facility] Start: 03-23-2026 DTaP,Tdap and Td Vaccines (7 - Td or Tdap) DTaP,Tdap and Td Vaccines (7 - Td or Tdap) [facility] Start: 03-23-2026 Urine microalbumin profile [facility] Start: 2025 Tobacco Screening Tobacco Screening [facility] Start: 10-10-2024 End: 10-10-2024 Patient encounter procedure 10/10/2024 11:00 AM EST Routine [facility] [address] [place] [phone] DO [address] [place] [place], [place] [id number] [facility] Start: 10-05-2024 End: 10-05-2024 Patient encounter procedure 10/05/2024 2:20 PM EST Routine [facility] [address] [place] [phone] Mya Finch PA [address] [place] [address] [facility] Start: 09-19-2024 End: 09-19-2024 [...] 08/31/2024 (Approximate), Expi res: 07/31/2025 Start: 08-25-2024 [facility] Start: 08-23-2024 End: 08-23-2024 Patient encounter procedure 08/23/2024 11:00 AM EST Routine [facility] [address] [place] [place] [address] DO [address] [place] [address] Arrived [facility] Comment on above: Arrived Start: 08-02-2024 End: 08-02-2024 Telemedicine consultation with patient 08/02/2024 9:00 AM EST Telemedicine [facility] [place] [address] [place] [phone] Darcy Enriquez MD [address] [place] [address] [facility] [place] Start: 07-27-2024 End: 07-27-2024 Patient encounter procedure 07/27/2024 11:00 AM EST Appointment [facility] [place] [address] [phone] [facility] [place] Start: 07-21-2024 End: 07-21-2024 Patient encounter procedure 07/21/2024 10:00 AM EST Appointment [facility] [address] [place] [address] [facility] Start: 07-11-2024 End: 07-11-2025 CBC panel - Blood by Automated count CBC Lab Routine 22 weeks gestation of Second trimester Expected: 07/11/2024 (Approximate), Expires: 07/11/2025 [facility] Work Phone: Comment on above: Expected: 07/11/2024 (Approximate), Expi res: 07/11/2025 Start: 07-11-2024 End: 07-11-2025 Measurement of glucose 1 hour after glucose challenge for glucose tolerance test Glucose tolerance, 1 hour Lab Routine 22 weeks gestation of Second trimester Diabetes mellitus screening Expected: 07/11/2024 (Approximate), Expires: 07/11/2025 [facility] Healthcare Comment on above: Expected: 07/11/2024 (Approximate), Expi res: 07/11/2025 Start: 07-11-2024 End: 07-11-2024 Patient encounter procedure 07/11/2024 10:[address] [facility] [address] [place] [place] [phone], DO [address] [place] [address] [facility] Start: 06-28-2024 [facility] Start: 2024 End: 2025 Echo complete W/O contrast Echo complete W/O contrast Echocardiography Routine 20 weeks gestation of History of pericarditis Expected: 2024, Expires: 2025 [facility] Work Phone: Comment on above: Expected: 2024, Expires: Start: 2024 End: 2024 Patient encounter procedure [facility] [place] Start: 06-12-2024 End: 10-13-2024 Alpha fetoprotein, maternal Alpha fetoprotein, maternal Lab Routine Second trimester 18 weeks gestation of Expected: 06/12/2024 (Approximate), Expires: 10/13/2024 [facility] Comment on above: Expected: 06/12/2024 [...] AM EDT Routine [facility] [address] [place] [phone], DO [address] [place] [place], [place] [phone] Arrived [facility] Comment on above: Arrived Start: 06-07-2024 End: 06-07-2024 Patient encounter procedure 06/07/2024 10:50 AM EDT Routine [facility] [address] [address], DO [address] [place] [place], [place] [id number] [facility] Start: 05-10-2024 End: 05-10-2024 Patient encounter procedure [facility] Comment on above: Arrived Start: 04-20-2024 End: 04-20-2024 Patient encounter procedure [facility] Comment on above: Arrived Start: 04-16-2024 COVID-19 Vaccine ( season) COVID-19 Vaccine ( season) [facility] Start: 04-16-2024 Influenza vaccination [facility] [...] 08-16-2023 Behavioral Health Screening Behavioral Health Screening [facility] Start: 05-06-2023 US scan of thyroid US thyroid [facility] Start: 04-16-2023 Covid-19 Vaccine () Covid-19 Vaccine () [facility] Start: 04-16-2023 Influenza vaccination Influenza Vaccine (#1) [facility] Start: 04-08-2023 [facility] Start: 08-16-2022 DEPRESSION ASSESSMENT DEPRESSION ASSESSMENT [facility] Start: 04-16-2022 Influenza vaccination INFLUENZA (#1) [facility] Start: 08-16-2021 DEPRESSION ASSESSMENT DEPRESSION ASSESSMENT [facility] Start: 01-10-2021 COVID-19 VACCINE (3 - Booster) COVID-19 VACCINE (3 - Booster) [facility] Start: 2017 PAP TESTING PAP TESTING [facility] Start: 2017 Screening for malignant neoplasm of cervix [facility] Start: 2015 DTaP,Tdap and Td Vaccines (1 - Tdap) DTaP,Tdap and Td Vaccines (1 - Tdap) [facility] Start: 2015 Urine microalbumin profile DTAP,TDAP,TD (1 - Tdap) [facility] Start: 2014 Adult BMI Screening Adult BMI Screening [facility] Start: 2014 ANNUAL PCP TEAM CHRONIC DISEASE VISIT ANNUAL PCP TEAM CHRONIC DISEASE VISIT [facility] Start: 2014 HEPATITIS C SCREENING HEPATITIS C SCREENING [facility] Start: 2014 Hepatitis C screening Hepatitis C Screening [facility] Start: 2014 HIV SCREENING HIV SCREENING [facility] Start: 2014 HIV screening HIV Screening [facility] Start: 2010 PEDS TO ADULT TRANSITION ANNUAL ASSESSMENT PEDS TO ADULT TRANSITION ANNUAL ASSESSMENT [facility] Start: 2008 Depression Screening Depression Screening [facility] Start: 2008 PEDS TO ADULT TRANSITION INITIAL DISCUSSION PEDS TO ADULT TRANSITION INITIAL DISCUSSION [facility] Start: 2008 Tobacco Screening Tobacco Screening [facility] Start: 2007 HPV VACCINE (1 - 2-dose series) HPV VACCINE (1 - 2-dose series) [facility] Start: 2005 HPV Vaccine (1 - 2-dose series) HPV Vaccine (1 - 2-dose series) [facility] Start: 1996 COVID-19 VACCINE (#1) COVID-19 VACCINE (#1) [facility] Start: 1996 HEPATITIS B (1 of 3 - 3-dose series) HEPATITIS B (1 of 3 - 3-dose series) [facility] Bacteria identified in Urine by Culture Urine culture Microbiology Routine Missed menses Ordered: 04/07/2024 [facility] Comment on above: Ordered: 04/07/2024 CBC W Auto Differential panel - Blood CBC and differential Lab Routine Missed menses Ordered: 04/07/2024 [facility] Comment on above: Ordered: 04/07/2024 CHLAMYDIA TRACHOMATI S (GENITO/STI) CHLAMYDIA TRACHOMATIS (GENITO/STI) Lab Routine First trimester Screen for STD (sexually transmitted disease) Vaginal discharge Ordered: 04/20/2024 [facility] Comment on above: Ordered: 04/20/2024 Cytology Cervical or vaginal smear or scraping study Pap Smear Pathology and Cytology Routine Well woman exam with routine gynecological exam Ordered: 04/20/2024 [facility] Work Phone: Comment on above: Ordered: 04/20/2024 Hemoglobin A1c/Hemoglobin.total in Blood Hemoglobin A1c Lab Routine Missed menses Ordered: 04/07/2024 [facility] Comment on above: Ordered: 04/07/2024 Hepatitis B virus surface Ag [Presence] in Serum or Plasma by Immunoassay Hepatitis B surface antigen Lab Routine Missed menses Ordered: 04/07/2024 [facility] Comment on above: Ordered: 04/07/2024 Hepatitis C virus Ab [Presence] in Serum or Plasma by Immunoassay Hepatitis C antibody Lab Routine Missed menses Ordered: 04/07/2024 [facility] Comment on above: Ordered: 04/07/2024 HIV-1/HIV-2 antigen/antibody combination immunoassay HIV-1 and HIV-2 antibodies Lab Routine Missed menses Ordered: 04/07/2024 [facility] Comment on above: Ordered: 04/07/2024 Neisseria gonorrhoea e DNA [Presence] in Unspecified specimen by LAUREN with probe detection Neisseria gonorrhea DNA probe, direct Lab Routine First trimester Screen for STD (sexually transmitted disease) Vaginal discharge Ordered: 04/20/2024 [facility] Comment on above: Ordered: 04/20/2024 Patient referral [facility] Work Phone: Progesterone [Mass/volume] in Serum or Plasma [facility] Progesterone [Mass/volume] in Serum or Plasma [facility] Progesterone [Mass/volume] in Serum or Plasma [facility] Progesterone [Mass/volume] in Serum or Plasma [facility] Progesterone [Mass/volume] in Serum or Plasma [facility] Reagin Ab [Presence] in Serum by RPR RPR Lab Routine Missed menses Ordered: 04/07/2024 [facility] Comment on above: Ordered: 04/07/2024 Rubella antibody, IgG Rubella an tibody, IgG Lab Routine Missed menses Ordered: 04/07/2024 [facility] Comment on above: Ordered: 04/07/2024 SURESWAB(R) ADVANCED VAGINITIS PLUS, TMA SURESWAB(R) ADVANCED VAGINITIS PLUS, TMA Pathology and Cytology Routine First trimester Screen for STD (sexually transmitted disease) Vaginal discharge Ordered: 04/20/2024 [facility] Comment on above: Ordered: 04/20/2024 Thyrotropin [Units/volume] in Serum or Plasma TSH Lab Routine Missed menses Ordered: 04/07/2024 [facility] Comment on above: Ordered: 04/07/2024 US Heart Transthoracic [facility] End: 07-07-2024 XR MODIFIED BARIUM SWALLOW W SPEECH THERAPY XR MODIFIED BARIUM SWALLOW W SPEECH THERAPY Radiology Routine Dysphagia, unspecified type 1 Occurrences starting 06/08/2023 until 07/07/2024 [facility] Work Phone: Comment on above: 1 Occurrences starting 06/08/2023 until 07/07/2024 [facility] Work Phone: [place] Immunizations Immunization Date Immunization Notes Care Provider Fa cility 05-21-2023 influenza virus vaccine, unspecified formulation Tyrone Rock [facility] 05-21-2023 influenza, injectabl e, 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, 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 free BOARD CATCHER Darwin Easterwood Work Phone: [facility] 05-21-2023 influenza, injectabl e, 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, contains 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 Darwin Easterwood Other [employer] [facility] [employer] Other 06-15-2022 influenza, injectabl e, 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, 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 free BOARD CATCHER Darwin Easterwood Work Phone: [facility] 06-15-2022 influenza, injectabl e, 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, contains 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 Darwin Easterwood Other [facility] Work Phone: 06-15-2022 influenza virus vaccine, unspecified formulation Francy Gan PA-C Work Phone: [facility] 06-15-2021 influenza nasal, unspecified formulation Ruby Whittington MD Work Phone: [facility] Work Phone: 06-15-2021 influenza virus vaccine, unspecified formulation Tyrone Rock [facility] 06-15-2021 influenza, injectabl e, 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, 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 free BOARD CATCHER Darwin Easterwood Work Phone: [facility] 06-15-2021 influenza, injectabl e, 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, contains 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 Darwin Easterwood Other [facility] Work Phone: 05-15-2021 influenza nasal, unspecified formulation Ruby Whittington MD Work Phone: [facility] Work Phone: 05-15-2021 influenza virus vaccine, unspecified formulation Tyrone Rock [facility] 05-15-2021 influenza, high dose seasonal, 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-free Unknown Unknown [facility] Work Phone: 11-15-2020 Pfizer-BioNTech COVID-19 Vacc 30 MCG/0.3ML Intramuscular Suspension Unknown Unknown [facility] 11-12-2020 COVID-19 vaccine, unknown product (NON-US) Ruby Whittington MD Work Phone: [facility] Work Phone: 10-24-2020 Pfizer-BioNTech COVID-19 Vacc 30 MCG/0.3ML Intramuscular Suspension Unknown Unknown [facility] 03-23-2016 tetanus toxoid, reduced diphtheria toxoid, and acellular pertussis vaccine, adsorbed Unknown Unknown [facility] Work Phone: 03-23-2016 varicella virus vaccine Unknown Unknown [facility] Work Phone: 03-01-2002 diphtheria, tetanus toxoids and acellular pertussis vaccine, unspecified formulation Unknown Unknown [facility] Work Phone: 03-01-2002 DTaP, unspecified formulation Tyrone Rock [facility] 03-01-2002 measles, mumps and rubella virus vaccine Unknown Unknown [facility] Work Phone: 03-01-2002 poliovirus vaccine, inactivated Unknown Unknown [facility] Work Phone: 03-01-2002 poliovirus vaccine, unspecified formulation Tyrone Rock [facility] 04-20-2001 hepatitis B vaccine, pediatric or pediatric/adolescent dosage Unknown Unknown [facility] Work Phone: 01-03-1998 diphtheria, tetanus toxoids and acellular pertussis vaccine, unspecified formulation Unknown Unknown [facility] Work Phone: 01-03-1998 DTaP, unspecified formulation Tyrone Rock [facility] 09-18-1997 measles, mumps and rubella virus vaccine Unknown Unknown [facility] Work Phone: 09-18-1997 varicella virus vaccine Unknown Unknown [facility] Work Phone: 03-30-1997 hepatitis B vaccine, pediatric or pediatric/adolescent dosage Unknown Unknown [facility] Work Phone: 1996 diphtheria, tetanus toxoids and acellular pertussis vaccine, unspecified formulation Unknown Unknown [facility] Work Phone: 1996 DTaP, unspecified formulation Tyrone Rock [facility] 1996 trivalent poliovirus vaccine, live, oral Unknown Unknown [facility] Work Phone: 1996 diphtheria, tetanus toxoids and acellular pertussis vaccine, unspecified formulation Unknown Unknown [facility] Work Phone: 1996 DTaP, unspecified formulation Tyrone Polancopsey [facility] 1996 haemophilus influenz ae type b vaccine, conjugate unspecified formulation Unknown [facility] Work Phone: 1996 Hib, unspecified formulation Tyrone Polancopsey [facility] 1996 trivalent poliovirus vaccine, live, oral Unknown Unknown [facility] Work Phone: 1996 diphtheria, tetanus toxoids and acellular pertussis vaccine, unspecified formulation Unknown Unknown [facility] Work Phone: 1996 DTaP, unspecified formulation Tyrone Polancopsey [facility] 1996 diphtheria, tetanus toxoids and acellular pertussis vaccine, unspecified formulation Unknown Unknown [facility] Work Phone: 1996 DTaP, unspecified formulation Tyrone Rock [facility] 1996 haemophilus influenz ae type b vaccine, conjugate unspecified formulation Unknown Unknown [facility] Work Phone: 1996 Hib, unspecified formulation Tyrone Rock [facility] 1996 measles, mumps and rubella virus vaccine Unknown Unknown [facility] Work Phone: 1996 varicella virus vaccine Unknown Unknown [facility] Work Phone: 1996 diphtheria, tetanus toxoids and acellular pertussis vaccine, unspecified formulation Unknown Unknown [facility] Work Phone: 1996 DTaP, unspecified formulation Tyrone Rock [facility] 1996 haemophilus influenz ae type b vaccine, conjugate unspecified formulation Unknown [facility] Work Phone: 1996 hepatitis B vaccine, pediatric or pediatric/adolescent dosage Unknown Unknown [facility] Work Phone: 1996 Hib, unspecified formulation Tyrone Rock [facility] 1996 trivalent poliovirus vaccine, live, oral Unknown Unknown [facility] Work Phone: 1996 hepatitis B vaccine, pediatric or pediatric/adolescent dosage Unknown Unknown [facility] Work Phone: Payers Date Payer Category Payer Self-pay [id number] 2023 Self-pay [id number] 2022 Private Health Insurance [id number] 2021 Unknown 2019 [facility] [id number] 02.315 1996 Unknown [id number] 2.16.84 0.1.514472.3.579.2.593 1996 Unknown [id number] 2.16.8 40.1.843061.3.579.2.727 1996 Unknown [id number] 2.16.8 40.1.115165.3.579.2.727 1996 Unknown [id number] 2.16.8 40.1.024083.3.579.2.727 1996 Unknown [id number] 2.16.840.1.167552.3.579.2.1286 1996 Unknown [id number] 2.16.840.1.104129.3.579.2.1286 1996 Unknown [id number] 2.16.840.1.188406.3.579.2.1286 1996 Unknown [id number] 2.16.840.1.241314.3.579.2.1286 1996 Unknown [id number] 2.16.8 40.1.745325.3.579.2.727 1996 Unknown [id number] 2.16.8 40.1.848077.3.579.2.727 1996 Unknown [id number] 2.16.8 40.1.748098.3.579.2.727 1996 Unknown [id number] 2.16.8 40.1.226704.3.579.2.727 1996 Unknown [id number] 2.16.8 40.1.601664.3.579.2.727 1996 Unknown [id number] 2.16.8 40.1.474228.3.579.2.727 1996 Unknown [id number] 2.16.8 40.1.779860.3.579.2.727 1996 Unknown [id number] 2.16.8 40.1.783853.3.579.2. 1996 Unknown [id number] 2.16.84 0.1.606791.3.579.2.1258 1996 Unknown [id number] 2.16.84 0.1.314097.3.579.2.1258 1996 Unknown [id number] 2.16.84 0.1.821378.3.579.2.1258 1996 Unknown [id number] 2.16.84 0.1.337549.3.579.2.1258 1996 Unknown [id number] 2.16.84 0.1.385011.3.579.2.1258 1996 Unknown [id number] 2.16.84 0.1.608241.3.579.2.1258 1996 Unknown [id number] 2.16.84 0.1.185561.3.579.2.1258 1996 Unknown [id number] 2.16.84 0.1.914391.3.579.2.1258 1996 Unknown [id number] 2.16.84 0.1.069566.3.579.2.1259 1959 Unknown [id number] Unknown [id number] Unknown [id number] 2.16.8 40.1.431738.3.579.2.531 Unknown [id number] 2.16.8 40.1.486493.3.579.2.531 Unknown [id number] 2.16.8 40.1.115677.3.579.2.531 Unknown [id number] 2.16.8 40.1.789222.3.579.2.531 Unknown [id number] 2.16.8 40.1.912972.3.579.2.531 Unknown [id number] 2.16.8 40.1.696077.3.579.2.531 Unknown [id number] 2.16.8 40.1.726291.3.579.2.531 Unknown [id number] 2.16.8 40.1.831353.3.579.2.531 Unknown [id number] 2.16.8 40.1.084378.3.579.2.531 Unknown [id number] 2.16.8 40.1.288293.3.579.2.531 Unknown [id number] 2.16.8 40.1.595032.3.579.2.531 Unknown [id number] 2.16.8 40.1.138604.3.579.2.531 Unknown [id number] 2.16.8 40.1.527119.3.579.2.531 Social History Date Type Detail Facility Start: 07-14-2022 End: 03-21-2024 No alcohol use No alcohol use [place] [address] DO Work Phone: Start: 12-29-2020 End: 08-04-2023 Tobacco smoking status MIIS Never smoked tobacco (finding) [facility] Start: 1995 Sex Assigned At Female [facility] Start: 07-14-2022 End: 03-21-2024 Sex Assigned At [facility] Other Tobacco smoking status Never [facility] Tobacco smoking status [facility] Tobacco smoking consumption unknown [facility] Start: 1996 Sex Assigned At Not on file [facility] Start: 04-17-2022 End: 07-14-2022 Exposure to SARS-CoV-2 (event) Not sure [facility] Start: 07-14-2022 End: 2024 Tobacco use and exposure Smokeless tobacco non-user [facility] Start: 07-14-2022 End: 10-05-2024 Alcohol intake Lifetime non-drinker (finding) [facility] Start: 07-13-2022 Gender identity Identifies as female gender (finding) [facility] Start: 02-16-2024 [facility] Start: 03-19-2015 End: 06-23-2024 Sex Female (finding) [facility] Tobacco [facility] Comment on above: Denies Tobacco smoking status No Smoking Status Entered [facility] NEGATED: Highlighted rowStart: NINF History of tobacco use Passive smoker [facility] Medical Equipment Procedure Code Equipment Code Equipment Origin al Text Equipment Identifier Dates Pen Murchison 31G X 5 MM Start: 05-18-2022 Goals Date Patient Goal Desired Activity /State Personal health goal Functional Status Date Assessment Result Facility 09-06-2024 Functional Status N/A [facility] 09-05-2024 Functional Status N/A [facility] 09-05-2024 Functional Status N/A [facility] 03-18-2024 Functional Status N/A [facility] 09-29-2023 Functional Status N/A [facility] 03-22-2023 Functional Status N/A [facility] 02-18-2022 Functional Status N/A [facility] Clinical Notes 01-14-2022 to 10-05-2024 HIPOLITO Shore - 10/05/2024 2:20 PM Pavan Abreu LPN - 09/19/2024 2:00 PM HIPOLITO Robert - 09/07/2024 2:30 PM EST Note Date & Type Note Facility 10-05-2024 History of Presen t illness Narrative Reason [...] reviewed. Vitals: Estimated body mass index is 40.72 kg/m as calculated from the following: Height as of 08/25/23: 5' 7 . Weight as of this encounter: 260 lb. BP: 120/70 Patient's last menstrual period was 02/02/2024 (exact date). ASSESSMENT & PLAN ICD-10-CM 1. 35 weeks gestation of Z3A.35 POCT urinalysis dipstick manually resulted 2. Third trimester Z34.93 POCT urinalysis dipstick manually resulted Return OB: Patient presents today for a routine obstetrics appointment. Patient is currently 35w1d . Patient states she is doing well [...] of: HIPOLITO Shore documented in this encounter [facility] 09-19-2024 History of Presen t illness Narrative [...] H/O calculus of kidney during Tiffani's disease ([facility]) 02/2022 History of Obesity (BMI 30-39.9) Pericarditis HISTORY PAST MEDICAL HISTORY SOCIAL HISTORY Past Medical History: Diagnosis Date Anxiety Blood type, Rh positive H/O calculus of kidney during Tiffani's disease ([facility]) 02/2022 History of Obesity (BMI 30-39.9) Pericarditis [...] nursing note reviewed. Exam conducted with a net lead architect present. Vitals: Estimated body mass index is [...] Brain Way DO documented in this encounter [facility] 09-07-2024 History of Presen [...] H/O calculus of kidney during Tiffani's disease ([facility]) 02/2022 History of Obesity (BMI 30-39.9) [...] of: HIPOLITO Shore documented in this encounter [facility] 09-07-2024 Note History and [...] scheduled. Rogelio Nath M.D. leeroy Dictated: 09/05/2024 [id number] Transcribed: 09/05/2024 [facility] Comment on above: Result Comment: Elec tronically Signed By: Pham GALLAGHER, Rogelio Robins\.br\Date and Time Signed: 09/07/24 08:38 EST 09-06-2024 Hospital Discharg e instructions Patient Education 09/06/2024 16:15:07 Concussion, Adult, Xgrb-ns-Mkqt Concussion, Adult A concussion is a brain [...] if you are dizzy. General instructions Take vcdr-tbr-cknmrvk and prescription medicines only as told by your doctor. Avoid taking strong pain medicines (opioids) after a concussion. Do not drink alcohol until your doctor says you can. Watch your symptoms and tell other people to do the same. Other problems can occur after a concussion. Tell your die lay out worker, teachers, school nurse, school counselor, assistant basketball coach, or physical trainer about your injury and symptoms. Tell [...] the National Suicide Prevention Lifeline at or 830. This is open 24 hours a day. Text the Crisis Text Line at 085567. This information is not intended to replace advice given to you by your health care provider. Make sure you discuss any questions you have with your health care provider. Document Revised: 12/25/2022 Document Reviewed: 12/25/2022 [employer] Patient Education 2023 [employer]. Follow Up Care 09/06/2024 13:58:27 With:DARWIN LARAERA Address: [address] [place] [phone] Business (1) When:09/09/2024 16:14:40 Comments:Call to schedule a follow-up appointment with your primary care provider. Use Zofran as needed for nausea/vomiting. Return to the ED with any new or worsening symptoms. [facility] 09-06-2024 Note ED Patient Education Note [...] you are dizzy. General instructions ??? Take crrq-nrd-afcocoq and prescription medicines only as told by your doctor. ??? Avoid taking strong pain medicines (opioids) after a concussion. ??? Do not drink alcohol until your doctor says you can. ??? Watch your symptoms and tell other people to do the same. Other problems can occur after a concussion. ??? Tell your die lay out worker, teachers, school nurse, school counselor, assistant basketball coach, or physical trainer about your injury and symptoms. Tell [...] You have any (more content not included)... [facility] 09-06-2024 Evaluation + Plan note Extrac hamilton [...] date 09/06/24 15:25:00 EST, 09/06/24 15:25:00 EST [facility] [id number] NoteDischarge Instructions Given Worsening The following Patient Education Materials have been given to the patient: ~~ [facility] + Plan note Extracted from: [...] Diagnostic Tests Pending * Urine Culture 09/05/24 [facility] 01-21-2025 Hospital Discharge instructions Patient Education 09/05/2024 04:35:45 Syncope, Adult, Phjp-zy-Gzvw Syncope, Adult Syncope is when you pass [...] you until you feel better. Medicines Take uesn-kwt-kawwhge and prescription medicines only as told by [...] provider. Document Revised: 12/11/2021 Document Reviewed: 12/11/2021 [employer] Patient Education 2023 [employer]. 09/05/2024 04:35:45 Nausea and Vomiting, Adult, Xefb-cd-Chhj Nausea and Vomiting, Adult Nausea is feeling [...] fruit juice). ?Low-calorie sports drinks. Eat bland, nnth-ji-apkqop foods in small amounts as you are able, such as: ?Bananas. ?Applesauce. ?Rice. ?Low-fat (lean) meats. ?Sagamore. ?Crackers. Avoid drinking fluids that have a lot of sugar or caffeine in them. This includes energy drinks, sports drinks, and soda. Avoid alcohol. Avoid spicy or fatty foods. General instructions Take vuzh-iyj-enjemvv and prescription medicines only as told by your doctor. Drink enough fluid to keep your pee (urine) pale yellow. Wash your hands often with soap and water for at least 20 seconds. If you cannot use soap and water, use hand terminal make up operator. Make sure that everyone in your [...] your doctor about eating and drinking. Take rszz-tuy-evblysv and prescription medicines only as told by your doctor. Contact your doctor if your symptoms get worse or you have new symptoms. Keep all follow-up visits. This information is not intended to replace advice given to you by your health care provider. Make sure you discuss any questions you have with your health care provider. Document Revised: 02/06/2022 Document Reviewed: 02/06/2022 [employer] Patient Education 2023 [employer]. 09/05/2024 04:35:45 Diarrhea, Adult, Abxk-ie-Rytx Diarrhea, Adult Diarrhea is when you pass [...] regular sports drinks. ?Avoid alcohol. Eat bland, zbju-oq-nqyxzm foods in small amounts as you are able. These foods include: ?Bananas. ?Applesauce. ?Rice. ?Low-fat (lean) meats. ?Sagamore. ?Crackers. Avoid spicy or fatty foods. Medicines Take cddl-nfg-muprooj and prescription medicines only as told by your doctor. If you were prescribed antibiotics, take them as told by your doctor. Do not stop taking them even if you start to feel better. General instructions Wash your hands often using soap and water for 20 seconds. If soap and water are not available, usehand terminal make up operator. Others in your home should wash [...] provider. Document Revised: 01/19/2023 Document Reviewed: 01/19/2023 [employer] Patient Education 2023 [employer]. 09/05/2024 04:35:45 Dehydration, Adult, Lozw-tn-Jllr Dehydration, Adult Dehydration is a condition in [...] or sea (high in altitude). The thinner, tray drier air causes more fluid loss. Doing [...] of fat or sugar. General instructions Take ukny-ycd-ixervcv and prescription medicines only as told by [...] provider. Document Revised: 03/01/2023 Document Reviewed: 03/01/2023 [employer] Patient Education 2023 [employer]. 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 Way for further evaluation management. Please return to the ED for any new or worsening symptoms. [facility] [id number] NoteProgress Note-Nurse @[id number] OB RN arrived in patient room in [...] about admission for further evaluation on OB unit.[facility]01-21-2025 NoteED Patient Education Note Gastroenterology Nausea and [...] ? Low-calorie sports drinks. ??? Eat bland, arys-bq-yuczvz foods in small amounts as you are able, such as: ? Bananas. ? Applesauce. ? Rice. ? Low-fat (lean) meats. ? Sagamore. ? Crackers. ??? Avoid drinking fluids that have a lot of sugar or caffeine in them. This includes energy drinks, sports drinks, and soda. ??? Avoid alcohol. ??? Avoid spicy or fatty foods. General instructions ??? Take ylgc-wfz-exwyccj and prescription medicines only as told by your doctor. ??? Drink enough fluid to keep your pee (urine) pale yellow. ??? Wash your hands often with soap and water for at least 20 seconds. If you cannot use soap and water, use hand terminal make up operator. ??? Make sure that everyone in [...] doctor about eating and drinking. ??? Take buwm-lxi-proanyz and prescription medicines only as told by your doctor. ??? Contact your doctor if your symptoms get worse or you have new symptoms. ??? Keep all follow-up visits. This information is not intended to replace advice given to you by your health care provider. Make sure you discuss any questions you have with your health care provider. Document Revised: 02/06/2022 Document Reviewed: 02/06/2022 [employer] Patient Education ? 2023 [employer] Infectious Disease Diarrhea, Adult Diarrhea is [...] Take an ORS (ora (more content not included)...[facility] 08-25-2024 Evaluation note* Diagnosis Onset Date Resolution Status Admit Date Class 2 obesity with body ma ss index (BMI) of 37.0 to 37.9 in adult acute August 25 11:56am Tiffani's disease acute Jan2024 11:56am Hypothyroidism acute August 252024 11:56am Mild left ventricular hypertrophy acute August 25 11:56am Second trimester acute August 25, 2024 11:56am [facility] Work Phone: 1(842) 949-577601-08-2025 History of Present illness Narrative* Aleisha Abreu [...] nursing note reviewed. Exam conducted with a net lead architect present. Vitals: Estimated body mass index is [...] of: Brain Way DO [id number] History of Present illness Narrative* Aleisha Abreu [...] H/O calculus of kidney during Tiffani's disease ([facility]) 02/2022 History of Obesity (BMI 30-39.9) Pericarditis HISTORY PAST MEDICAL HISTORY SOCIAL HISTORY Past Medical History: Diagnosis Date Anxiety Blood type, Rh positive H/O calculus of kidney during Tiffani's disease ([facility]) 02/2022 History of Obesity (BMI 30-39.9) Pericarditis [...] nursing note reviewed. Exam conducted with a net lead architect present. Vitals: Estimated body mass index is [...] of: Brain Way DO documented [facility] [id number] History of Present illness Narrative* Laura Herron [...] male Have you been seen here at [facility] in a previous ? No Recent ER visits or hospitalizations? no Bring blood sugar log or meter with you today? (Please bring them with you for every visit at [facility]) n/a Flu vaccine (Jun-October)? Yes Any [...] effusion. Also she was then evaluated by awning erector who told her that she had pericarditis and that resolved with a taking Motrin however she did not had an echocardiogram. Saw Dr. Coronado. 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 Yes NotIn System Ref Prov uq117-bxes-gjlwv acid ( 19) 29 mg iron- 1 [...] would recommend she establishes care with a playroom attendant for it to be further evaluated 7. [...] Please refer her locally to see a playroom attendant for the incidental finding on the CT [...] Hayden Reilly MD, FACOG (she/hers) Maternal- Medicine [facility] [address] [place] [address] This document was created with [employer] technology. Though I make every effort to review the dictation as it is transcribed, on occasion the spoken word can be misinterpreted by the technology leading to inappropriate words, phrases, or sentences. This note is addressed to the requesting provider as a consultation for clinical guidance. Specificmedical abbreviations are occasionally used and those are generally approved by the [place]?Board of?Obstetrics and?Gynecology?as well as?Lauryn lund abbreviations. The above plan of care was based solely on the diagnoses for which a consultation was requested. ?More frequent testing may be indicated based on her other medical/obstetrical conditions. The management of other or medical conditions is beyond the scope of requested consultation and will c ontinue to be followed by the primary career counselor or primary care provider. Note to patient: [...] of the practitioner. documented in this encounterOhioHealth Grant Medical CenterSenhwa Biosciences [id number] Radiology Diagnostic study [facility] [place] [address] Ultrasound Report Signed Patient: Tawnya Herring MR#: [id number] : 1995 Acct:[id number] Age/Sex: 28 / F ADM Date: 4 Loc: Room: Type: [facility] Attending Dr: Brain Way DO Ordering [...] Norton Jr., D.O.06/22/2024 4:00 PM Dictation Location: [place] Tech: Rae De Paz Transcribed By: AGUILAR 06/22/24 1600 Dictated By: Zay Norton Jr, DO 06/22/24 1552 Signed By: 06/22/24 1600 [facility]10-28-2024 History of Present illness Narrative * [...] H/O calculus of kidney during Tiffani's disease ([facility]) 02/2022 History of Obesity (BMI 30-39.9) Pericarditis HISTORY PAST MEDICAL HISTORY SOCIAL HISTORY Past Medical History: Diagnosis Date Anxiety Blood type, Rh positive H/O calculus of kidney during Tiffani's disease ([facility]) 02/2022 History of Obesity (BMI 30-39.9) Pericarditis [...] of: Brain Way DO documented in this encounterSainte Genevieve County Memorial [id number] Evaluation note* Diagnosis Onset Date Resolution Status Admit Date Well adult exam noneactive May 11, 2024 10:46am [facility] Work Phone: 1(212) 852-354009-25-2024 History of Present illness Narrative* Aleisha Abreu [...] H/O calculus of kidney during Tiffani's disease ([facility]) 02/2022 History of Obesity (BMI 30-39.9) Pericarditis [...] nursing note reviewed. Exam conducted with a net lead architect present. Vitals: Estimated body mass index is [...] of: Brain Way DO documented in this encounterSainte Genevieve County Memorial [id number] History of Present illness Narrative* Coral Rg [...] H/O calculus of kidney during Tiffani's disease ([facility]) 02/2022 History of Obesity (BMI 30-39.9) Pericarditis HISTORY PAST MEDICAL HISTORY SOCIAL HISTORY Past Medical History: Diagnosis Date Anxiety Blood type, Rh positive H/O calculus of kidney during Tiffani's disease ([facility]) 02/2022 History of Obesity (BMI 30-39.9) Pericarditis [...] nursing note reviewed. Exam conducted with a net lead architect present. Vitals: Estimated body mass index is [...] of: Brain Way DO documented in this encounterSainte Genevieve County Memorial [id number] History of Present illness Narrative* Thelma Elizabeth [...] H/O calculus of kidney during Tiffani's disease ([facility]) 02/2022 History of Obesity (BMI 30-39.9) [...] or undercooked meat, and stay away from [facility]. Patient has also been advised to not [...] by: Thelma Elizabeth LPN documented in this encounterSainte Genevieve County Memorial [id number] Hospital Discharge instructions Patient Education 03/18/2024 12:15:03 [...] provider. Document Revised: 01/31/2021 Document Reviewed: 01/31/2021 [employer] Patient Education 2022 [employer]. 03/18/2024 12:15:03 Subchorionic Hematoma Subchorionic Hematoma A [...] provider. Document Revised: 04/28/2021 Document Reviewed: 04/28/2021 [employer] Patient Education 2022 [employer]. Follow Up Care 03/18/2024 08:08:01 With:Rogelio Nath Address: [address], [facility] [address] [place] [address]- Business (1) When:03/21/2024 11:54:39 With:DARWIN JONES Address: [address] [place] [phone] Business (1) When:Within 3 Day(s) [facility] 08-03-2024 NoteED Patient Education Note Obstetrics [...] provider. Document Revised: 01/31/2021 Document Reviewed: 01/31/2021 [employer] Patient Education ? 2022 [employer] Subchorionic Hematoma A hematoma is a collection of blood outside of the blood vessels. A subchorionic hematoma is a collection of blood between the outer wall of the embryo (chorion) and the inner wall of the uterus. This condi (more content not included)...[facility]04-04-2024 NoteHNO ID: [id number] Author: RUBY WHITTINGTON MD Service: ? Author [...] RTN 1 year. Ruby Whittington MD Endocrinology StaffPaulding County Hospital04-04-2024 History of Present illness Narrative* Ruby [...] Whittington MD Endocrinology Staff documented in this encounterLuther[facility] Hospital04-[facility]24 Instructions* Patient Instructions* Odalis Greene - 11/18/2023 7:58 AM EDT Thank you [facility] Department of Endocrinology, Diabetes and Metabolism. Did you know that you need to call 48 hours in advance of your scheduled visit, if you are unable to make your appointment? The [facility] [place] thanks you for your commitment, because patients not showing to their appointment results in a lost opportunity for patients to receive world class health care at the [facility]. To Cancel an appointment, please choose one of the following: - Call the Appointment Call Center at [phone] - From ClearView™ Audio, Go to Appointments - Cancel Appts If cancelling, consider your need to reschedule to prevent further delays in your care. To Schedule an appointment, please choose one of the following: - Call the Appointment Call Center at [phone] - From ClearView™ Audio, Go to Appointments - Request an Appt documented in this encounterLutheran Hospital02-14-2024 Hospital Discharge instructions Patient Education 09/29/2023 [...] numbers. This can be done either in [place] (U.[place] or metric measurements. Note that charts and online BMI calculators are available to help you find your BMI quickly and easily without having to do these calculations yourself. To calculate your BMI in [place] ([place] measurements: 1.Measure your weight in pounds [...] Centers for Disease Control and Prevention: www.cdc.gov [place] Heart Association: www.heart.org National Heart, Lung, and Blood [place]: www.nhlbi.nih.gov Summary Body mass index (BMI) is a number that is calculated from a person's weight and height. BMI may help estimate how much of a person's weight is composed of fat. BMI can help identify thosewho may be at higher risk for certain medical problems. BMI can be measured using [place] measurements or metric measurements. BMI charts are used to identify whether you are underweight, normal weight, overweight, or obese. This information is not intended to replace advice given to you by your health care provider. Make sure you discuss any questions you have with your health care provider. Document Revised: 04/24/2020 Document Reviewed: 03/01/2020 [employer] Patient Education 2022 [employer]. 09/29/2023 11:04:59 Sinus Infection, Adult Sinus Infection, [...] saline washes). ?Medicines that treat allergies (antihistamines). ?Sbdt-mnd-zghhbpp pain relievers. If caused by bacteria, your [...] at home: Medicines Take, use, or apply huxd-cce-dqntpym and prescription medicines only as told by [...] and water are not available, use hand terminal make up operator. Do not smoke. Avoid being around [...] provider. Document Revised: 07/07/2022 Document Reviewed: 07/07/2022 [employer] Patient Education 2022 [employer]. Follow Up Care 09/29/2023 09:12:00 With:ROBERT HOLLOWAY DARWIN Address: [facility] [place] [address]- When: Unknown [facility] 02-06-2024 Evaluation note* [...] BMI is required on scripts in the [facility]. Sep, Other *Progress note was completed with the assistance of voice recognition software for dictation purposes. Please excuse any grammatical errors that were not corrected during review process. [employer] Other 01-10-2024 Evaluation note* Encounter Date Diagnosis [...] that were not corrected during review process. [employer] Other 12-01-2023 Miscellaneous Notes* Telephone Encounter - Kenan Gomez - 07/16/2023 9:39 AM EST LVM to let patient know their appt has been rescheduled with Dr. Whittington. documented in this encounterLutheran Hospital11-08-2023 Evaluation note* Encounter Date Diagnosis Assessment [...] comfortable prescribing this medication at this time. [employer] Other 10-24-2023 NoteHNO ID: [id number] Author: Francy Gan PA-C Service: ? Author Type: Physician Umbrella Finisher Type: Progress Notes Filed: 06/08/2023 2:53 PM [...] will be in touch with results via [employer] HPI: Tawnya is a 27 year old [...] testing/treatment Medical Decision Making Level: 3 - [facility] History of Present illness Narrative* Francy [...] Level: 3 - Low documented in this encounterLutheran Hospital10-24-2023 Instructions* Patient Instructions* Francy Gan PA-C - 06/08/2023 2:16 PM EDT Continue the omeprazole for another 1.5 months documented in this [facility]10-11-2023 Evaluation note* Encounter Date Diagnosis Assessment [...] that were not corrected during review process. [employer] Other 09-13-2023 Evaluation note* Encounter Date Diagnosis [...] Discussed short term 8 week course vs. group home management. Discussed pros and cons of taking [...] that were not corrected during review process. [employer] Other 09-01-2023 Evaluation note* Encounter Date Diagnosis [...] SCANNED INTO PATIENT CHART AND FAXED TO [employer]. Apr, Other We did briefly discussed the [...] that were not corrected during review process. [employer] Other 08-08-2023 Hospital Discharge instructions Patient Education 03/22/2023 22:52:44 Urinary Tract Infection, Adult, Vetu-hw-Znpg Urinary Tract Infection, Adult A urinary tract [...] Follow these instructions at home: Medicines Take hgow-abx-tpdxvsf and prescription medicines only as told by [...] provider. Document Revised: 03/14/2021 Document Reviewed: 03/14/2021 [employer] Patient Education 2022 [employer]. Follow Up Care 03/22/2023 19:54:03 With:DARWIN JONES Address: [address] [place] [phone] Business (1) When:03/25/2023 Comments:Follow-up with your primary care provider in 3 to 5 days. If symptoms worsen, do not improve, or new symptoms arise please report back to emergency department for further evaluation. [facility]08-07-2023 Evaluation + Plan note Diagnostic Tests Pending * Urine Culture 03/22/23 [facility]03-02-2023 Evaluation note* Encounter Date Diagnosis Assessment Notes Treatment Notes Treatment Clinical Notes Oct, Nausea & vomiting (ICD-10 - R11.2) [facility] Other 02-20-2023 Evaluation note* Encounter Date Diagnosis [...] Encounter for weight management (ICD-10 - Z76.89) [facility] Other 02-13-2023 Miscellaneous Notes* Addendum Note - [...] daily. Ruby Whittington MD documented in this encounterLutheran Hospital01-18-2023 Evaluation note* Encounter Date Diagnosis Assessment [...] Encounter for weight management (ICD-10 - Z76.89) [employer] Other 01-10-2023 Evaluation note* Encounter Date Diagnosis [...] as inspiration Patient set the following goals: [employer] Other 12-16-2022 Evaluation note* Encounter Date Diagnosis [...] E06.3) She was recently seen by an log driver at [facility] for elevated TSH. She is currently on adequate supplementation and will follow up with them. Jul, Daytime sleepiness (ICD-10 - R40.0) Continue to work on good sleep hygiene and control factors that she can.This could also improve with additional water intake. Jul, Mild depression (ICD-10 - F32.9) Jul, Encounter for weight management (ICD-10 - Z76.89) [facility] Other 11-29-2022 History of Present illness Narrative* [...] Endocrinology Staff CC: Darwin Jones APRN, CNP. [address] [place] [address] documented in this encounterLutheran Hospital11-29-2022 Instructions* Patient Instructions* Soo Begum Ma - 07/14/2022 8:46 AM EST Thank [facility] Department of Endocrinology, Diabetes and Metabolism. Did you know that you need to call 48 hours in advance of your scheduled visit, if you are unable to make your appointment? The [facility] [place] thanks you for your commitment, because patients not showing to their appointment results in a lost opportunity for patients to receive [facility] health care at the [facility]. To Cancel an appointment, please choose one of the following: - Call the Appointment Call Center at [phone] - From ClearView™ Audio, Go to Appointments - Cancel Appts If cancelling, consider your need to reschedule to prevent further delays in your care. To Schedule an appointment, please choose one of the following: - Call the Appointment Call Center at [phone] - From ClearView™ Audio, Go to Appointments - Request an Appt documented in this encounterLutheran Hospital11-02-2022 Evaluation note* Encounter Date Diagnosis Assessment [...] samples and titrate her up slowly until [facility] insurance kicks in in August. We [...] will discuss at later date if needed. [employer] Other 10-20-2022 Evaluation note* Encounter Date Diagnosis [...] Pt understood and agreed to tx plan. [facility] Other 10-12-2022 Evaluation note* Encounter Date Diagnosis [...] patient set personal goal using given handout. [employer] Other 10-10-2022 Miscellaneous Notes* Telephone Encounter - Linn Hancock - 05/25/2022 2:35 PM EDT LVM for patient that appt on 05/[address] George has been rescheduled to 07/[facility] at [facility] with Dr. Robertson. sending mail reminder as well. 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 Her Mallampati is not [...] of a comprehensive approach to obesity management [employer] Other 09-02-2022 Evaluation note* Encounter Date Diagnosis [...] to start the weight management program at [facility] in the coming months.Nothing further needed [...] that were not corrected during review process. [employer] Other 07-07-2022 Hospital Discharge instructions Patient Education [...] Follow these instructions at home: Medicines Take fgpw-xcy-hnqhiiw and prescription medicines only as told by [...] 04/27/2002 Document Revised: 08/05/2018 Document Reviewed: 05/14/2017 [employer] Patient Education 2020 [employer]. 02/18/2022 22:49:49 Migraine Headache Migraine Headache A [...] Follow these instructions at home: Medicines Take soid-amj-adiisxa and prescription medicines only as told by your health care provider. Ask your health care provider if the medicine prescribed to you: ?Requires you to avoid driving or using heavy machinery. ?Can cause constipation. You may need to take these actions to prevent or treat constipation: ?Drink enough fluid to keep your urine pale yellow. ?Take qndh-msc-ugyznuy or prescription medicines. ?Eat foods that are [...] 08/02/2006 Document Revised: 11/24/2019 Document Reviewed: 09/14/2019 [employer] Patient Education 2020 [employer] Follow Up Care 02/18/2022 20:32:17 With:DARWIN JONES Address: [address] [facility] [place] [phone] Business (1) When:Within 3 Day(s) [facility]07-06-2022 Evaluation + Plan noteExtracted from: Title:ED [...] voices understanding and is agreeable to plan. [facility]07-06-2022 Evaluation note* Encounter Date Diagnosis Assessment [...] and remind her of lab draw at [facility]. Feb, Thyromegaly (ICD-10 - E01.0) Discussed [...] that were not corrected during review process. 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 Medical History Abnormal thyroid ult rasound February 2022 work-up pending by ENT Surgical History 2019 Surgical History Cystoscopy 05/2021 Surgical History 2020 Hospitalization History See surgical hx 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 documented in this encounter [facility] Hospital[facility]* Diagnosis 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 documented in this encounter [facility] [place] [facility]* Diagnosis Dysphagia, unspecified type- Primary LPRD (laryngopharyngeal reflux disease) Other diseases of larynx documented in this encounter [facility] HospitalEvalunem[facility] [place] [facility]* Diagnosis Onset Date Resolution Status Obesity acute [facility] Work Phone: Evaluation note* Diagnosis 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 Irregular menstruation, unspecified Female infertility Female infertility of unspecified origin Calculus of kidney documented in this encounter [facility]* Diagnosis Onset Date Resolution Status Obesity acute Class 2 obesity with body ma ss index (BMI) of 37.0 to 37.9 in adult acute [facility] Work Phone: Evaluation note* Diagnosis Onset Date Resolution Status Obesity acute Class 2 obesity with body ma ss index (BMI) of 37.0 to 37.9 in adult acute Class 2 obesity with body ma ss index (BMI) of 37.0 to 37.9 in adult acute [facility] Work Phone: evaluation note* Diagnosis Onset Date Resolution Status Class 2 obesity with body ma ss index (BMI) of 37.0 to 37.9 in adult acute Class 2 obesity with body ma ss index (BMI) of 37.0 to 37.9 in adult acute [facility] Work Phone: evaluation note* Diagnosis Onset Date Resolution Status Class 2 obesity with body ma ss index (BMI) of 37.0 to 37.9 in adult acute [facility] Work Phone: evaluation note* Diagnosis Onset Date Resolution Status Well adult exam noneactive [facility] Work Phone: evaluation note* Diagnosis Second trimester state, incidental 18 weeks gestation of Screening, , for anatomic survey Encounter for anatomic survey [facility] Diagnosis 22 weeks gestation of Second trimester state, incidental Nausea and vomiting during Diabetes mellitus screening Screening for diabetes mellitus documented [facility]* Diagnosis Missed menses documented in this [...] Abnormal TSH [facility]* [...] type Depression affecting [facility]* Diagnosis History of pericarditis- Primary Mild concentric left ventricular hypertrophy (LVH) 25 weeks gestation of documented in [facility] encounter [facility]* Diagnosis 35 weeks gestation of Third trimester state, incidental documented in this encounter [facility] general [...] Surgical History 2020 Hospitalization History See surgical [employer] Other Hiscplz general Narrative - Reported* Type Description Date [...] Surgical History 2020 Hospitalization History See surgical [employer] Other Hissvvs general Narrative - Reported* Type Description Date [...] Surgical History 2020 Hospitalization History See surgical [employer] Other History of Present illness Narrative* Patient [...] no other testing or intervention appears necessary. [facility] Hospital[facility] DO Work Phone: Hospital course Narrative No data available for this section [facility] HospitalInstructionsNot on filedocumented in this encounter [facility] SystemInstructions* Attachments The following attachments cannot be sent through Care Everywhere. * Preeclampsia ([place]) documented in this encounterShelby [facility] SystemInstructionsNot on file documented in this encounterShelby Memorial Hospital SystemProgress note No data available for this section [facility] HospitalReason for referral (narrative)* Reason Dr. 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) Referral Organization [facility] Referring Provider First Name [place] Referring Provider Last Name [facility] Referring Provider Specialty Nurse Pract itioner Referred Provider Specialty Endocrinolog y Referral Priority Routine [employer] Other Reason for referral (narrative)* Diagnostic Procedure Only (Routine) - Pending Review Specialty Diagnoses / Procedures Referred By Contac t Referred To Contact XR IMAGING Diagnoses Dysphagia, unspecified type Procedures XR MODIFIED BARIUM SWALLOW W SPEECH THERAPY RADIOLOGIC EXAM SWALLOW FUNCTION CONTRAST STUDY Francy Gan PA-C [address] [place] [address] [place] [address] Referral ID Status Reason Start Date Expiration Date Visits Requested Visits Authorized [id number] Pending Review Auto-Generat ed Referral 3 07/07/2024 1 1 [facility] Chief Complaint TAWNYA HERRING is being [...] z3a.18 z86.39 z34.92 June 13t 2023 7:51am Chief Complaint Admit Date z36.89 June [...] Dysphagia, unspecifi ed type (R13.10) Referral Organization [facility] Referring Provider First Name [place] Referring Provider Last Name [facility] Referring Provider Specialty Nurse Pract itioner Referred Organization [facility] Referred Address [address] [place], [place],[address] Referred Provider Specialty Ear, Nose an d Throat Referral Priority Routine Reason ABNORMAL US OF THYRO ID Newly discovered [employer] Diagnosis 1 Thyromegaly (E01.0) Referral Organization [facility] Referring Provider First Name Darwin Referring Provider Last Name [facility] Referring Provider Specialty Nurse Pract itioner Referred Provider Specialty Ear, Nose an d Throat Referral Priority Routine Additional Source Comments INFORMATION SOURCE (unrecogn ized section and content) DATE CREATED AUTHOR 09/04/2021 [employer] DATE CREATED AUTHOR AUTHOR'S ORGANIZ ATION 12/18/2022 [facility] DATE CREATED AUTHOR AUTHOR'S ORGANIZ ATION 11/22/2023 [facility] DATE CREATED AUTHOR AUTHOR'S ORGANIZ ATION 03/20/2024 [facility] DATE CREATED AUTHOR AUTHOR'S ORGANIZ ATION 08/05/2024 [facility] DATE CREATED AUTHOR AUTHOR'S ORGANIZ ATION 09/06/2024 Rose Aguila [facility] ical Center DATE CREATED AUTHOR AUTHOR'S ORGANIZ ATION 09/08/2024 Rose Aguila [facility] Center DATE CREATED AUTHOR AUTHOR'S ORGANIZ ATION 09/13/2024 [facility] Center DATE CREATED AUTHOR AUTHOR'S ORGANIZ ATION 09/14/2024 Rose [facility] Center DATE CREATED AUTHOR AUTHOR'S ORGANIZ ATION 10/03/[address] [facility] DATE CREATED AUTHOR AUTHOR'S ORGANIZ ATION 10/07/2024 [facility] EPIC Care Teams (unrecognized sec [...] [address] Attending Provider Active Start: [facility] 2023 End: November 01, 2023 Team Status: [...] Primary Care Provider Active Addi Ortega DO [facility] Attending Provider Active Team Status: [...] Primary Care Provider Active Addi Ortega DO [facility] Attending Provider Active Team Status: Active Member Role Status Dates PHYSICIAN NO FAMILY Primary Care Provider Active Team Status: Inactive Member Role Status Dates Darwin Jones APRN Primary Care Provider, Attend ing Provider Active Team Status: Inactive Member Role Status Dates Darwin Jones APRN Primary Care Provider Active Saad Valera DO Attending Provider Active Radiologic Technology Instructor Relationship Specialty Start Date End Date Darwin Jones PRESCRIPTIONIST [address] [address] Referring Family Medicine 04/22/22 Radiologic Technology Instructor Relationship Specialty Start Date End Date Darwin Jones, PRESCRIPTIONIST [address] [address] Referring Family Medicine 04/22/22 Team Status: Inactive Member Role Status Dates Darwin Jones APRN Primary Care Provider Active Jeovanny Quiros DO Emergency Provider Active Radiologic Technology Instructor Relationship Specialty Start Date End Date Darwin Jones CNP [address] [address] Referring Family Medicine 04/22/22 Radiologic Technology Instructor Relationship Specialty Start Date End Date Darwin Jones CNP [address] [address] Referring Family Medicine 04/22/22 Team Status: Inactive Member Role Status Dates Darwin Jones APRN Attending Provider Active Start: July 23, 2023 End: July 23, 2023 Team Status: Inactive Member Role Status Dates Darwin Jones APRN Attending Provider Active Start: August 25, 2023 End: August 25, 2023 Radiologic Technology Instructor Relationship Specialty Start Date End Date Darwin Jones CNP [address] [address] Referring Family Medicine 04/22/22 Team Status: Inactive Member Role Status Dates Darwin Jones APRN Primary Care Pr ovider, Attending Provider Active Start: December 24, 2023 End: December 24, 2023 Team Status: Inactive Member Role Status Dates Darwin Jones APRN Primary Care Provider Active Start: December 27, 2023 End: December 27, 2023 Brain Seamus Attending Provider Active Start: 2023 End: December 27, 2023 Team Status: Inactive Member Role Status Dates Darwin Jones APRN Primary Care Provider Active Start: January 24, 2024 End: January 24, 2024 Brain Seamus Attending Provider Active Start: 2023 End: January 24, 2024 Team Status: Inactive Member Role Status Dates Darwin Jones APRN Primary Care Pr ovider, Attending Provider Active Start: January 25, 2024 End: January 25, 2024 Team Status: Inactive Member Role Status Dates Darwin Jones APRN Primary Care Provider Active Start: November 30, 2023 End: November 30, 2023 Brainjonathan Chiango , DO Attending Provider Active [...] February 24, 2024 End: February 24, [address] , DO Attending Provider Active [...] May 24, 2024 End: May 24, 2024 Team Status: Inactive Member Role [...] June 28, 2024 End: June 28, 2024 Team Status: Inactive Member Role Status [...] Status: Inactive Member Role Status Dates Darwin J Easterwood , BOARD CATCHER Primary Care Provider Active Start: September 21, 2024 End: September 21, [address] DO Attending Provider Active Start : September 21, 2024 End: September 21, 2024 Radiologic Technology Instructor Relationship Specialty Start Date End Date No Pcp, [place] [address] PCP - General Family Medicine 08/19/19 Radiologic Technology Instructor Relationship Specialty Start Date End Date No Pcp, [place] [address] PCP - General Family Medicine 08/19/19 Radiologic Technology Instructor Relationship Specialty Start Date End Date No Pcp, [place] [address] PCP - General Family Medicine 08/19/19 Goals (unrecognized section and content) Goals may [...] this encounterNot on filedocumented as of this encounterNot on filedocumented as of this encounter REASON FOR VISIT (unrecogniz ed section and content) Reason Comments Appointment LVM for patient that appt on 05/[address] George has been rescheduled to 07/08 at [facility] with Dr. Robertson. sending mail reminder as well. Reason Comments Thyroid Problem Reason Comments Consult Reason Comments Appointment Reason Comments Routine Visit Reason Comments Amenorrhea Reason Comments Tiffani's Thyroiditis Source Comments (unrecognize d section and content) In the event this informatio n is protected by the Federal Confidentiality of Alcohol and Drug Abuse Patient Records regulations: The Federal rules restrict any use of the information to criminally investigate or prosecute any alcohol or drug abuse patient.[facility] the event this information is protected by the Federal Confidentiality of Alcohol and Drug Abuse Patient Records regulations: The Federal rules restrict any use of the information to criminally investigate or prosecute any alcohol or drug abuse patient.[facility] Hospital[facility] the event this information is protected by the Federal Confidentiality of Alcohol and Drug Abuse Patient Records regulations: The Federal rules restrict any use of the information to criminally investigate or prosecute any alcohol or drug abuse patient.[facility] Hospital[facility] the event this information is protected by the Federal Confidentiality of Alcohol and Drug Abuse Patient Records regulations: The Federal rules restrict any use of the information to criminally investigate or prosecute any alcohol or drug abuse patient.[facility] Hospital[facility] the event this information is protected by the Federal Confidentiality of Alcohol and Drug Abuse Patient Records regulations: The Federal rules restrict any use of the information to criminally investigate or prosecute any alcohol or drug abuse patient.[facility] Hospital[facility] the event this information is protected by the Federal Confidentiality of Alcohol and Drug Abuse Patient Records regulations: The Federal rules restrict any use of the information to criminally investigate or prosecute any alcohol or drug abuse patient.[facility] FOR RECORDS PERTAINING TO PATIENTS WHO [...] BE BASED ON THE PRIMARY CLINICAL RECORDS. [employer] [facility]. provides no warranty or guarantee of the accuracy or completeness of information in this document.
[2024-10-10 10:05] VITALS: BP 130/79; PULSE 105
== END 2024-10-10 10:44 | disposition home or self-care (01) ==
LOC: FBCO 01:00 → FBC 09:59
PROVIDERS: PCP Nurse Practitioner Family; Visit Provider Obstetrics & Gynecology
DX: O36.63X0 Maternal care for excessive fetal growth, third trimester, not applicable or unspecified (principal)
CPT/HCPCS: 36415; 59025

== ENCOUNTER 2024-10-10 14:39 | Outpatient (REF) | payer OTHER, SELFPAY | END 2024-10-10 14:40 | disposition home or self-care (01) | LOC: LAB 14:39 | PROVIDERS: PCP Nurse Practitioner Family; Visit Provider Obstetrics & Gynecology | DX: Z34.93 Encounter for supervision of normal pregnancy, unspecified, third trimester (principal) | CPT/HCPCS: 36415 ==

== ENCOUNTER 2024-10-13 00:08 | Outpatient (OUT) | payer OTHER, SELFPAY ==
--- NOTE | 2024-10-13 | US_ITS ---
[address] [address] Patient Name: BARBY HERRING MRN: [id number] date: 1995 Sex: F Assigned Patient Location: [facility] Current Patient Location: Accession/Order Number: [id number] Exam Date: 10/13/2024 13:36 Report Date: 10/13/2024 13:44 At the request of: GAMAL ADAN DO Procedure: US OB growth CLINICAL DATA: Size greater than dates. ULTRASOUND OB GROWTH COMPARISON: 09/11/2024 There is a single live intrauterine gestation in cephalic presentation. There is cardiac and somatic activity with heart rate of 133 bpm. The amniotic fluid index measures 32.0 cm. The 95th percentile is 28 cm. The following measurements were obtained: Biparietal diameter 9.5 cm 38 weeks 4 days <97% Head circumference 34.2 cm 39 weeks 3 days 90% Abdominal circumference 36.2 cm 40 weeks 1 day <97% Femur length 7.1 cm 36 weeks 3 days 52% The composite ultrasound age based on these measurements is 38 weeks 5 days +/- 2 weeks 5 days. The estimated weight is 8 lbs. 2 oz. +/- 1 lb. 3 oz. US/US OB growth IMPRESSION: SINGLE LIVE INTRAUTERINE GESTATION WITH TODAY'S ULTRASOUND AGE OF 38 WEEKS 5 DAYS. POLYHYDRAMNIOS. BIOPHYSICAL PROFILE: COMPARISON: 10/04/2024 FINDINGS: TONE: 1 or more episodes of activity extension and flexion of extremity or opening and closing of the hand [Y] 2/2 GROSS BODY MOVEMENTS: 3 or more discrete body or limb movements [Y] 2/2 BREATHING MOVEMENTS: 1 or more episodes of breathing lasting at least 30 seconds [Y] 2/2 LIEN: A single deepest vertical pocket of amniotic fluid greater than 2 cm [Y] 2/2 LIEN: 32.0 cm. This is polyhydramnios. Total score: 8/8 IMPRESSION: NORMAL BIOPHYSICAL PROFILE. POLYHYDRAMNIOS. Impression dictated by: Aleisha Tapia M.D.10/13/2024 1:44 PM Dictation Location: [place] Electronically authenticated by: [id number] Y Date: 10/13/2024 13:44
--- NOTE | 2024-10-13 | US_ITS ---
The [address] [address] Patient Name: BARBY HERRING MRN: [id number] date: 1995 Sex: F Assigned Patient Location: Current Patient Location: Accession/Order Number: [id number] Exam Date: 10/13/2024 13:36 Report Date: 10/13/2024 13:44 At the request of: GAMAL ADAN DO Procedure: US OB growth CLINICAL DATA: Size greater than dates. ULTRASOUND OB GROWTH COMPARISON: 09/11/2024 There is a single live intrauterine gestation in cephalic presentation. There is cardiac and somatic activity with heart rate of 133 bpm. The amniotic fluid index measures 32.0 cm. The 95th percentile is 28 cm. The following measurements were obtained: Biparietal diameter 9.5 cm 38 weeks 4 days <97% Head circumference 34.2 cm 39 weeks 3 days 90% Abdominal circumference 36.2 cm 40 weeks 1 day <97% Femur length 7.1 cm 36 weeks 3 days 52% The composite ultrasound age based on these measurements is 38 weeks 5 days +/- 2 weeks 5 days. The estimated weight is 8 lbs. 2 oz. +/- 1 lb. 3 oz. US/US OB BPP w non-stress IMPRESSION: SINGLE LIVE INTRAUTERINE GESTATION WITH TODAY'S ULTRASOUND AGE OF 38 WEEKS 5 DAYS. POLYHYDRAMNIOS. BIOPHYSICAL PROFILE: COMPARISON: 10/04/2024 FINDINGS: TONE: 1 or more episodes of activity extension and flexion of extremity or opening and closing of the hand [Y] 2/2 GROSS BODY MOVEMENTS: 3 or more discrete body or limb movements [Y] 2/2 BREATHING MOVEMENTS: 1 or more episodes of breathing lasting at least 30 seconds [Y] 2/2 LIEN: A single deepest vertical pocket of amniotic fluid greater than 2 cm [Y] 2/2 LIEN: 32.0 cm. This is polyhydramnios. Total score: 8/8 IMPRESSION: NORMAL BIOPHYSICAL PROFILE. POLYHYDRAMNIOS. Impression dictated by: Aleisha Tapia M.D.10/13/2024 1:44 PM Dictation Location: [place] Electronically authenticated by: [id number] Y Date: 10/13/2024 13:44
--- OUTSIDE RECORDS SUMMARY | 2024-10-13 00:13 | XMS_ITS | CCD ---
Author Organization [facility] Care Team Providers [facility] Name Role Phone Unknown, Unknown Unavailable Unavailable Unavailable Unavailable NO FAMILY, PHYSICIAN Primary Care Provider Unava ilable DO Addi Ortega Attending Provider Darwin Jones Unavailable DARWIN JONES Primary Care Physician [phone] Lilly Luke Unavailable SHIRLEY Jones Primary Care Provider [phone] SHIRLEY Jones Attending Provider DO Saad Valera Attending Provider Ofelia Hester Unavailable [facility] AMIE Darwin Unavailable Sima Ross Unavailable [facility] AMIE Darwin Unavailable SHIRLEY Jones Primary Care Provider SHIRLEY Hester Attending Provider SHIRLEY Jones Primary Care Provider SHIRLEY Hester Attending Provider [phone] Attending Provider REQUEST, DR HOBSON LISTED Primary Care Unavaila ble SEAMUS ., DR YEUNG Attending Unavailable SEAMUS ., DR YEUNG Consulting Unavailable SEAMUS ., DR YEUNG Admitting Unavailable SHIRLEY Jones Primary Care Provider DO Addi Ortega Attending Provider [facility] Primary Care Provider DO Jeovanny Quiros Emergency Provider [facility] Primary Care Provider DO Addi Ortega Attending Provider [phone] [facility]ending Provider [facility] Primary Care Provider Brain Way Attending Provider [phone] [facility] Primary Care Provider Brain Way Attending Provider RUBY WHITTINGTON Attending Unavailable FRANCY GAN Attending Unavailable [facility] Primary Care Provider Brain [address] Attending Provider [phone] [facility] Primary Care Provider DO Brain Way Attending Provider [phone] [place] Attending Unavailable Gabriel Curtis Attending Unavailable Tyrone Rock Attending Unavailable [facility] Primary Care Provider DO Brain Way Attending Provider [facility] Addi Attending Provider SHIRLEY Jones Primary Care Provider DO Brain Way Attending Provider SHIRLEY Jones Primary Care Provider DO Brain Way Attending Provider Unavailable Primary Care Provider [facility] Darwin Jones APRN Primary Care Provider [facility] Addi SELLERS Attending Provider Brain Way DO Attending Provider SEAMUS, BRAIN R Referring Unavailable NO PCP, NO PCP Primary Care Unavailable HAYDEN REILLY P Attending Unavailable NO PCP, NO PCP Primary Care Unavailable HAYDEN REILLY Referring Unavailable DARCY ENRIQUEZ Attending Unavailable SEAMUS, BRAIN R Referring Unavailable NO PCP, NO PCP Primary Care Unavailable [facility] Darwin WATSON Primary Care Provider Brain Way DO Attending Provider Mary Ellen Bruce MD Attending Provider DO Gabriel Curtis Attending Unavailable [place] Attending Unavailable Rogelio Nath Attending Unavailable Rogelio Nath Admitting Unavailable Rogelio Nath Attending Unavailable Rogelio Nath Admitting Unavailable Flash Franco Attending Unavailable [facility] Darwin WATSON Primary Care Provider Brain Way DO Attending Provider [phone] Darwin Jones Primary Care Unavailable Seamus, Brain Attending Unavailable Seamus, Brain Admitting Unavailable Darwin Jones Primary Care Unavailable Seamus, Brain Attending Unavailable Seamus, Brain Admitting Unavailable Seamus, Brain Attending Unavailable [facility] Primary Care Unavailable Seamus, Brain Admitting Unavailable Seamus, Brain Attending Unavailable Darwin Jones Primary Care Unavailable Seamus, Brain Admitting Unavailable Janis Mary Ellen Admitting Unavailable Mary Ellen Bruce Attending Unavailable [facility] Primary Care Unavailable Mary Ellen Bruce Attending Unavailable [facility] Primary Care Unavailable Janis Mary Ellen Admitting Unavailable Seamus, Brain Attending Unavailable [facility] Primary Care Unavailable Seamus, Brain Admitting Unavailable [facility] Primary Care Unavailable Seamus, Brain Attending Unavailable Seamus, Brain Admitting Unavailable [facility] Primary Care Unavailable Seamus, Brain Attending Unavailable Seamus, Brain Admitting Unavailable [facility] Primary Care Unavailable Seamus, Brain Attending Unavailable Seamus, Brain Admitting Unavailable [facility] Center[facility] Primary Care Unavailable Seamus, Brain Attending Unavailable Seamus, Brain Admitting Unavailable [facility] Primary Care Unavailable Seamus, Brian Attending Unavailable Seamus, Brain Admitting Unavailable [facility] Admitting Unavailable [facility] Attending Unavailable Darwin Jones Primary Care Unavailable No Pcp, No Pcp Primary Care Provider UnavailMYA Garza Attending Unavailable SEAMUS, BRAIN Attending Unavailable MYA FINCH Attending Unavailable SEAMUS, BRAIN Attending Unavailable SEAMUS, BRAIN Attending Unavailable SEAMUS, BRAIN Attending Unavailable SEAMUS, BRAIN Attending Unavailable SEAMUS, BRAIN Attending Unavailable SEAMUS, BRAIN Attending Unavailable Allergies Allergy Classification Reported Allergen(s) Allergy Type Date of Onset Reaction(s) Facility (6 sources) No Known Medication Allergies; Translations: [No Known Medication Allergies] Propensity to adverse reactions (disorder) [facility] Medications Current Medications Medication [...] tablet (2 sources) Opioid Agonist Start: 06-03-2021 [place] 325 mg-5 mg oral tablet 2 tab(s), [...] day(s), # 20 tab(s), Refills(s) 0, Pharmacy: [facility], 170.2, cm, 09/29/23 10:44:00 EST, Height/Length [...] day(s), # 28 cap(s), Refills(s) 0, Pharmacy: [facility], 170.2, cm, 03/22/23 20:14:00 EDT, Height/Length Dosing, 113.5, kg, 03/22/23 20:14:00 EDT, Weight Dosing Start Date: 03/22/23 Stop Date: 03/29/23 Status: Ordered Start: 07-03-2021 take 1 capsule by mo uth twice daily Keflex 500 mg Cap 500 mg = 1 cap(s), Oral, BID, # 10 cap(s), Refills(s) 0, Pharmacy: [facility], 170, cm, 06/27/21 10:56:00 EST, Height/Length [...] Start: 08-25-2024 take 1 capsule by mo uth once daily Levothyroxine 100 mcg capsule Active [...] day(s), # 21 tab(s), Refills(s) 0, Pharmacy: [facility], 170.2, cm, 09/29/23 10:44:00 EST, Height/Length [...] Apr, Active take 1 capsule by mo [facility] once daily omeprazole (PRILOSEC) 20 mg capsule [...] Date: 02/18/22 Stop Date: 02/21/22 Status: Ordered Zej733-Qighdcz Fumarate-Fa () 28-800 mg-mcg Tablet (20 sources) Start: 12-29-2020 Crz950-Zscvajk Fumarate-Fa () 28-800 mg-mcg Tablet Active TAB PO December 29, 2020 3:43pm Start: 12-29-2020 End: 10-07-2023 Zcd633-Dlxyofc Fumarate-Fa ( ) 28-800 mg-mcg Tablet Discontinued TAB PO December 28, 2020 11:00pm October 07, 2023 6:06pm Start: 12-29-2020 End: 10-07-2023 Ikx862-Jxitiho Fumarate-Fa ( ) 28-800 mg-mcg Tablet Discontinued TAB PO December 29, 2020 12:00am October 07, 2023 7:06pm Start: 12-29-2020 Lwg147-Qcngcgp Fumarate-Fa () 28-800 mg-mcg Tablet Active TAB PO December 28, 2020 11:00pm Start: 12-29-2020 Cey859-Ducnrip Fumarate-Fa () 28-800 mg-mcg Tablet Active TAB PO December 29, 2020 12:00am -kvbj fum-folic ac-o m3 (One Daily ) (12 sources) Start: 08-25-2024 izjvyl13-upwy fum-folic ac-om3 (One Daily ) Active 1 PKG PO Daily August 25, 2024 12:10pm Start: 05-11-2024 End: 08-25-2024 hardtd75-miuv fum-folic ac-o m3 (One Daily ) Discontinued PO May 10, 2024 11:00pm August 25, 2024 12:11pm Start: 05-11-2024 hifcku73-dpgt fum-folic ac-om3 (One Daily ) Active PO May 10, 2024 11:00pm Start: 05-11-2024 dgwukw98-jhgf fum-folic ac-om3 (One Daily ) Active PO May 11, 2024 12:00am MV-Min-Fe Fum-FA-DHA ( 1 PO) (20 sources) MV-Min- Fe Fum-FA-DHA ( 1 PO) Take 1 each by mouth Daily Active yh644-wwmr-cqtvs acid ( 19) 29 mg iron- 1 mg tablet,chewable (2 sources) ea952-xnns-vymny acid ( 19) 29 mg iron- 1 [...] source) Vitamin B12 cyanocobalamin/f olic acid (VITAMIN H48-GVKJC ACID) 1,000-400 mcg lozg Take by mouth [...] Start: 05-26-2023 take 1 capsule by mo [facility] every twenty-four hours Phentermine HCl 37.5 MG [...] of Phys. EHR Cmte Other complications of (2 sources) Gastroesophageal reflux disease in ; Translations: [Diseases of the digestive system complicating , unspecified trimester] 08-23-2024 Episodic Other complications of (2 sources) size does not accord with dates; Translations: [Uterine size-date discrepancy, unspecified trimester] 09-07-2024 Episodic Other complications of (2 sources) Excessive growth affecting management of mother; Translations: [Maternal care for excessive growth, unspecified trimester, not applicable or unspecified] 10-10-2024 Episodic Other gastrointestinal disorders (20 sources) Pharyngeal [...] of ] 06-12-2024 Episodic Residual codes; unclassified (1 source) 20 [...] [35 weeks gestation of ] 10-05-2024 Episodic Residual codes; unclassified (2 sources) Gestation period, 36 weeks; Translations: [36 weeks gestation of ] 10-10-2024 Episodic Syncope (1 source) Syncope and collapse; Translations: [Syncope and collapse] Onset: 5 Episodic Thyroid disorders (20 sources) Hypothyroidism; Translations: [Hypothyroidism, unspecified] Onset: 2 Resolved: 2 Chronic Unclassified (20 sources) OB Reminders Onset: 4 06-28-2024 Unclassified [...] of hypertension] 2024 Episodic Other complications of (20 sources) Vomiting of , unspecified; Translations: [Unspecified vomiting of , unspecified as to episode of care or not applicable] Onset: 07-11-2024 07-11-2024 Episodic Other complications of (3 sources) Hypothyroidism [...] Onset: 2024 2024 Episodic Residual codes; unclassified (20 sources) Gestation period, 22 weeks; Translations: [22 weeks gestation of ] Onset: 07-11-2024 07-11-2024 Episodic Residual codes; unclassified (2 sources) [...] Test Name Value Interpretation Reference Range Facility Urinalysis macro (dipstick) panel (U)on 10-10-2024 Bilirubin, UA Negative Negative - 4(70) +++ mg/dL [facility] Blood, UA Negative Negative - 50 Dain/mcL [facility] Clarity, UA Clear [facility] Color, UA Yellow [facility] Glucose, UA Negative Negative - 2000(110) ++++ mg/dL [facility] Interpretation and review of laboratory results Abnormal [facility] Ketones, UA Negative Negative - 160(16) ++++ mg/dL [facility] Leukocytes, UA Trace Negative - 500+++ Chaparrita/mcL [facility] Nitrite, UA Negative Negative - Positive [facility] pH, UA 7 5 - 9 [facility] Protein, UA Trace Negative - 1999(20) ++++ mg/dL [facility] Spec Grav, UA 1.015 1 - 1.03 [facility] Urobilinogen, UA 1.0 0.2 - 12 mg/dL [facility] OB BPP W NON-STRESS on 10-05-2024 [place] [address] Ultrasound Report Signed Patient: TAWNYA HERRING MR#: [id number] : 1995 Acct:[id number] Age/Sex: 29 / F ADM Date: Loc: [facility] 254-[address]: Brain Way D.O. Ordering Physician: Brain Way D.O. Date of Service: 10/04/24 Procedure(s): US OB BPP w non-stress Accession Number(s): [id number] cc: Darwin Jones SENIOR FIELD SERVICE ENGINEER; Brain Way D.O. The [place] [address] Patient Name: TAWNYA HERRING MRN: [facility]:[id number] date: 1995 Sex: F Assigned Patient Location: [facility] [place] [facility] [place]/Order Number: [id number] Exam Date: 10/05/2024 10:54 Report Date: 10/05/2024 10:58 At the request of: BRAIN WAY DO Procedure: US OB BPP w non-stress BIOPHYSICAL PROFILE: CLINICAL INFORMATION: decreased movement COMPARISON: 09/28/2024 There is a fetus in cephalic presentation. The reported gestational age is 35 weeks 0 days. The heart rate [id number] beats per minute. FINDINGS: TONE: 1 or [...] Aleisha Tapia M.D.10/05/2024 10:58 AM Dictation Location: [place] [address] Electronically authenticated by: [id number] Y Date: 10/05/2024 10:58 Dictated By: Aleisha Tapia M.D. Signed By: 10/05/24 1239 DD/ 1058 TD/TT: Manager Contact: [facility] Radiology, Radiologi MD diane - 10/05/2024 [place] [address] Ultrasound Report Signed Patient: TAWNYA HERRING MR#: [id number] : 1995 Acct:[id number] Age/Sex: 29 / F ADM Date: Loc: [facility] 254-[address]: Brain Way D.O. Ordering Physician: Brain Way D.O. Date of Service: 10/04/24 Procedure(s): US OB BPP w non-stress Accession Number(s): [id number] cc: Darwin Jones SENIOR FIELD SERVICE ENGINEER; Brain Way D.O. The [place] [address] Patient Name: TAWNYA HERRING MRN: [facility]:[id number] date: 1995 Sex: F Assigned Patient Location: [facility] [place] [facility] [place]ion/Order Number: [id number] Exam Date: 10/05/2024 10:54 Report Date: 10/05/2024 10:58 At the request of: BRAIN WAY DO Procedure: US OB BPP w non-stress BIOPHYSICAL PROFILE: CLINICAL INFORMATION: decreased movement COMPARISON: 09/28/2024 There is a fetus in cephalic presentation. The reported gestational age is 35 weeks 0 days. The heart rate beats per minute. FINDINGS: TONE: 1 or [...] percentile: 7.0 - 27.9) . Total score: 8/ US/US OB BPP w non-stress IMPRESSION: NORMAL BIOPHYSICAL PROFILE. BORDERLINE POLYHYDRAMNIOS. Impression dictated by: Aleisha Tapia M.D.10/05/2024 10:58 AM [facility]ated by: [id number] Y Date: 10/05/2024 10:58 Dictated By: Aleisha Tapia M.D. Signed By: 10/05/24 1239 DD/ 1058 TD/TT: Manager Contact: [facility] Radiology Study observation (narrative) [facility] OB BPP W NON-STRESS Ordered By: Radiologist Radiology on 10-05-2024 [facility] Work Phone: Urinalysis macro (dipstick) panel (U)on 10-05-2024 Bilirubin, UA Negative Negative - 4(70) +++ mg/dL [facility] Blood, UA Negative Negative - 50 Dain/mcL [facility] Clarity, UA Clear [facility] Color, UA Yellow [facility] Glucose, UA Negative Negative - 2000(110) ++++ mg/dL [facility] Interpretation and review of laboratory results Abnormal [facility] Ketones, UA Negative Negative - 160(16) ++++ mg/dL [facility] Leukocytes, UA Positive Negative - 500+++ Chaparrita/mcL [facility] Comment on above: small Nitrite, UA Negative Negative - Positive [facility] pH, UA 7 5 - 9 [facility] Protein, UA Negative Negative - 1999(20) ++++ mg/dL [facility] Spec Grav, UA 1.02 1 - 1.03 [facility] Urobilinogen, UA 0.2 0.2 - 12 mg/dL [facility] US OB BPP W NON-STRESS on 09-29-2024 [place] [address] Ultrasound Report Signed Patient: TAWNYA HERRING MR#: [id number] : 1995 Acct:[id number] Age/Sex: 29 / F ADM Date: 09/28/24 Loc: US Attending Dr: Brain Way D.O. Ordering Physician: Brain Way D.O. Date of Service: 09/28/24 Procedure(s): US OB BPP w non-stress Accession Number(s): [id number] cc: Darwin Jones SENIOR FIELD SERVICE ENGINEER; Brain [address] D.O. [place] [address] Patient Name: TAWNYA HERRING MRN: [id number] date: 1995 Sex: F Assigned Patient Location: [facility] Current Patient Location: Accession/Order Number: [id number] Exam Date: 09/28/2024 19:56 Report Date: 09/29/2024 [...] IRENE HARRINGTON Date: 09/29/2024 07:32 Dictated By: Irnee Harrington M.D. Signed By: 09/29/2434 DD/ 1 TD/TT: Manager Contact: [facility] Radiology, Radiolognoel contreras MD - 09/29/2024 [place] [address] Ultrasound Report Signed Patient: TAWNYA HERRING MR#: [id number] : 1995 Acct:[id number] Age/Sex: 29 / F ADM Date: 09/28/24 Loc: US Attending Dr: Brain Way D.O. Ordering Physician: Brain Way D.O. Date of Service: 09/28/24 Procedure(s): US OB BPP w non-stress Accession Number(s): [id number] cc: Darwin Jones SENIOR FIELD SERVICE ENGINEER; Brain Way D.O. The [place] [address] Patient Name: TAWNYA HERRING MRN: [facility]:[id number] date: 1995 Sex: F Assigned Patient Location: [facility] Current Patient Location: Accession/Order Number: [id number] Exam Date: 09/28/2024 19:56 Report Date: 09/29/2024 [...] Irene Harrington M.D. Signed By: 09/29/2434 DD/ 1 TD/TT: Manager Contact: [facility] Radiology Study observation (narrative) [facility] US OB BPP W NON-STRESS Ordered By: Radiologist Radiology on 09-29-2024 [facility] Work Phone: US OB BPP W NON-STRESS on 09-22-2024 [place] [address] Ultrasound Report Signed Patient: TAWNYA HERRING MR#: [id number] : 1995 Acct:[id number] Age/Sex: 29 / F ADM Date: 09/22/24 Loc: [facility] 252-[address]: Brain Way D.O. Ordering Physician: Brain Way D.O. Date of Service: 09/22/24 Procedure(s): US OB BPP w non-stress Accession Number(s): [id number] cc: Darwin Jones SENIOR FIELD SERVICE ENGINEER; Brain [address] D.O. [place] [address] Patient Name: TAWNYA HERRING MRN: [id number] date: 1995 Sex: F Assigned Patient Location: [facility] Current Patient Location: [facility] Accession/Order Number: [id number] Exam Date: 09/22/2024 11:07 Report Date: 09/22/2024 [...] Signed By: 09/22/24 1138 DD/ 1135 TD/TT: Manager Contact: [facility] Radiology, Radiolognoel contreras MD - 09/22/2024 [place] [address] Ultrasound Report Signed Patient: TAWNYA HERRING MR#: [id number] : 1995 Acct:[id number] Age/Sex: 29 / F ADM Date: 09/22/24 Loc: [facility] 252-[address]: Brain Way D.O. Ordering Physician: Brain Way D.O. Date of Service: 09/22/24 Procedure(s): US OB BPP w non-stress Accession Number(s): [id number] cc: Darwin Jones SENIOR FIELD SERVICE ENGINEER; Brain [address] D.O. The [place] [address] Patient Name: TAWNYA HERRING MRN: [facility]:[id number] date: 1995 Sex: F Assigned Patient Location: [facility] Current Patient Location: [facility] Accession/Order Number: [id number] Exam Date: 09/22/2024 11:07 Report Date: 09/22/2024 [...] Signed By: 09/22/24 1138 DD/ 1135 TD/TT: Manager Contact: [facility] Radiology Study observation (narrative) [facility] OB BPP W NON-STRESS Ordered By: Radiologist Radiology on 09-22-2024 [facility] Work Phone: Thyroid Stimulating Hormoneo n 09-21-2024 TSH Qn 2.52 m[IU]/L Normal 0.45-5.33 [facility] Comment on above: Result Comment: PERF ORMED BY: [place] [address] PATHOLOGIST [employer]ANER MIS SCHMIDT M.D. Performed By: #### T SH3 #### [address] Thyrotropin [Units/volume] i n Serum or PlasmaOrdered By: Brain Way on 09-21-2024 TSH Qn Thyrotropin [Units/v olume] in Serum or Plasma 0.45-5.33 [facility] Urinalysis macro (dipstick) panel (U)on 09-19-2024 Bilirubin, UA Positive Negative - 4(70) +++ mg/dL [facility] Comment on above: small Blood, UA Negative Negative - 50 Dain/mcL [facility] Clarity, UA Clear [facility] Color, UA Wendy [facility] Glucose, UA Negative Negative - 2000(110) ++++ mg/dL [facility] Interpretation and review of laboratory results Abnormal [facility] Ketones, UA Positive Negative - 160(16) ++++ mg/dL [facility] Comment on above: trace Leukocytes, UA Negative Negative - 500+++ Chaparrita/mcL [facility] Nitrite, UA Negative Negative - Positive [facility] pH, UA 6 5 - 9 [facility] Protein, UA Positive Negative - 2000(20) ++++ mg/dL [facility] Comment on above: 30 Spec Grav, UA 1.025 1 - 1.03 [facility] Urobilinogen, UA 1.0 0.2 - 12 mg/dL [facility] US OB BPP W NON-STRESS on 09-15-2024 [place] [address] Ultrasound Report Signed Patient: TAWNYA HERRING MR#: [id number] : 1995 Acct:[id number] Age/Sex: 29 / F ADM Date: 09/14/24 Loc: [facility] 254-[address]: Brain Way D.O. Ordering Physician: Brain Way D.O. Date of Service: 09/14/24 Procedure(s): US OB BPP w non-stress Accession Number(s): [id number] cc: Darwin Jones SENIOR FIELD SERVICE ENGINEER; Brain Way D.O. The [place] [id number] Patient Name: TAWNYA HERRING MRN: [facility]:[id number] date: 1995 Sex: F Assigned Patient Location: US Current Patient Location: Accession/Order Number: [id number] Exam Date: 09/14/2024 19:57 Report Date: 09/15/2024 [...] M.D. Signed By: 09/15/24616 DD/ 4 TD/TT: Manager Contact: [facility] Radiology, Radiologi MD diane - 09/15/2024 The [place] [id number] Ultrasound Report Signed Patient: TAWNYA HERRING MR#: [id number] : 1995 Acct:[id number] Age/Sex: 29 / F ADM Date: 09/14/24 Loc: [facility] 254-[address]: Brain Way D.O. Ordering Physician: Brain Way D.O. Date of Service: 09/14/24 Procedure(s): US OB BPP w non-stress Accession Number(s): [id number] cc: Darwin Jones SENIOR FIELD SERVICE ENGINEER; Brain [address] D.O. [place] [address] Patient Name: TAWNYA HERRING MRN: [id number] date: 1995 Sex: F Assigned Patient Location: [place] Current Patient Location: Accession/Order Number: [id number] Exam Date: 09/14/2024 19:57 Report Date: 09/15/2024 [...] M.D. Signed By: 09/15/24616 DD/ 4 TD/TT: Manager Contact: [facility] Radiology Study observation (narrative) [facility] US OB BPP W NON-STRESS Ordered By: Radiologist Radiology on 09-15-2024 [facility] Work Phone: [facility] echo transthoracicon [facility] echo transthoracic [facility] [place] [address] [place] [address] Echocardiogram Signed Patient: Tawnya Shay MR#: [id number] : 1995 Acct:[id number] Age/Sex: 29 / F ADM Date: 09/14/24 Loc: Room: Type: [facility] Attending Dr: Mary Ellen Bruce MD Ordering Provider: Mary Ellen Bruce MD Date of Service: 09/14/24 [facility] echo transthoracic: I51.7 - Cardiomegaly Copies [...] 5.0 mmHg Transcribed By: SCV Performed At: 09/14/24 0955 Signed By: Mary Ellen Bruce MD 09/14/24 1116 Normal [facility] OB GROWTHon 09-11-2024 [place] [address] Ultrasound Report Signed Patient: TAWNYA HERRING MR#: [id number] : 1995 Acct:[id number] Age/Sex: 29 / F ADM Date: 09/11/24 Loc: US Attending Dr: Mya Finch Ordering Physician: Mya Finch Date of Service: 09/11/24 Procedure(s): US OB growth Accession Number(s): [id number] cc: Mya Finch; Darwin Jones NP [place] [address] Patient Name: TAWNYA HERRING MRN: [id number] date: 1995 Sex: F Assigned Patient Location: Current Patient Location: [place] Accession/Order Number: [id number] Exam Date: 09/11/2024 10:00 Report Date: 09/11/2024 [...] Signed By: 09/11/24 1111 DD/ 1108 TD/TT: Manager Contact: [facility] Radiology, Radiologi MD diane - 09/11/2024 [place] [address] Ultrasound Report Signed Patient: TANWYA HERRING MR#: [id number] : 1995 Acct:[id number] Age/Sex: 29 / F ADM Date: 09/11/24 Loc: US Attending Dr: Mya Finch Ordering Physician: Mya Finch Date of Service: 09/11/24 Procedure(s): US OB growth Accession Number(s): [id number] cc: Mya Finch; Darwin Jones NP [place] [id number] Patient Name: TAWNYA HERRING MRN: [id number] date: 1995 Sex: F Assigned Patient Location: [place] Current Patient Location: [place] Accession/Order Number: [id number] Exam Date: 09/11/2024 10:00 Report Date: 09/11/2024 [...] Age by EDC: 31 weeks 5 days YSAMIN by EDC: 2024-11-08 Age by US: 35 [...] Signed By: 09/11/24 1111 DD/ 1108 TD/TT: Manager Contact: [facility] Radiology Study observation (narrative) [facility] OB GROWTHOrdered By: Halima ologist Radiology on 09-11-2024 [facility] Work Phone: C Urineon 09-07-2024 [...] was performed at: [facility], [address] [place] [address], [phone]- , , [facility] Comment on above: Performed By: #### 2 [id number] #### [facility] [address] [place] [address] Urinalysis macro (dipstick) panel (U)on 09-07-2024 Bilirubin, UA Negative Negative - 4(70) +++ mg/dL [facility] Blood, UA Negative Negative - 50 Dain/mcL [facility] Healthcare Clarity, UA Clear [facility] Color, UA Yellow [facility] Glucose, UA Negative Negative - 2000(110) ++++ mg/dL [facility] Interpretation and review of laboratory results Normal [facility] Ketones, UA Negative Negative - 160(16) ++++ mg/dL [facility] Leukocytes, UA Negative Negative - 500+++ Chaparrita/mcL [facility] Nitrite, UA Negative Negative - Positive [facility] Healthcare pH, UA 8 5 - 9 [facility] Protein, UA Negative Negative - 2000(20) ++++ mg/dL [facility] Spec Grav, UA 1.015 1 - 1.03 [facility] Healthcare Urobilinogen, UA 1.0 0.2 - 12 mg/dL [facility] Healthcare [facility] ED Clinical Summaryon 2024 ED Clinical Summary ED Clinical Summary [address] [address] ED Clinical Summary Person Information Name: TAWNYA HERRING/[facility] Age: 29 Years : 1995 Sex: Female Language: Northern Irish PCP: DARWIN JONES CNP Marital Status: Single Phone: [phone] Visit Id: Visit Reason: Headache; HEADACHE, FALL [...] 09/06/2024 16:26:55 09/06/2024 16:26:55 09/06/2024 16:26:55 ADDRESS: [address] [place] [phone] PHYS DOC NOTES: MEDICAL INFORMATION: Prescriptions Given: [...] day. PATIENT EDUCATION INFORMATION: Instructions: Concussion, Adult, Hzkl-fy-Dhcg Follow up: With: Address: When: D[address]WIN [address] [phone] [email or web address] (1) In 3 days 09/09/2024 Comments: Call to schedule a follow-up appointment with your primary care provider. Use Zofran as needed for nausea/vomiting. Return to the ED with any new or worsening symptoms. DIAGNOSIS: JEFFERSON (headache) [facility] ED Note-Physicianon 09-06-19 ED Note-Physician [...] headache. She denies the use of any lgbv-ajo-jpccijf medications for this. Patient denies any neck [...] CT not ordered by emergency health care analyst [] Head CT ordered for reasons other than trauma [] Patient is 18 or older, presenting with minor blunt head trauma. Head CT (including cosigned orders) was ordered by an emergency health care analyst for trauma because (select one or more):[SATISFIES MIPS PERFORMANCE]Reasons: [] Patient is 65 or older [] Patient GCS < 15 [] Patient has focal neurologic deficit [] Patient has severe headache [] Patient is vomiting [] Severe/dangerous mechanism of injury was identified(select one or more): []MVA with: patient ejection, of another passenger, rollover, speed > 40mph, airbag deployment, milk truck driver or passenger on ATV or motorcycle [...] was ordered by an emergency health care analyst for trauma, no indication specified.[DOES NOT SATISFY MIPS PERFORMANCE] Medical Decision Making Patient is a 29-year-old female with a history of anxiety who presents to the ED 30 weeks with complaints of a headache following a syncope episode from a seated position yesterday. Patient is hemodynamically st (more content not included)... [facility] Comment on above: Result Comment: Elec tronically Signed By: Lashon Tee PA-C\.br\Date and Time Signed: 09/06/24 16:20 EST\.br\Electronically Co-Signed By: Lashon Tee PA-C.br\Date and Time Co-Signed: 09/06/24 16:21 EST\.br\Electronically Co-Signed By: Flash Franco DO\.br\Date and Time Co-Signed: 09/06/24 19:47 EST ED Patient Summaryon 025 ED Patient Summary ED Patient Summary [place] [id number] Patient Discharge Instructions Person Information Name: TAWNYA HERRING Age: 29 Years Arrival Date: 09/06/2024 13:57:18 Discharge Diagnosis: JEFFERSON (headache) Primary Care Physician: DARWIN JONES CNP Provider Information Primary Provider: Flash Franco DO Advanced Pageant Director:Lashon Tee PA-C The exam and treatment you received in the Emergency Department were for an urgent problem and are not intended as complete care. It is important that you follow up with a doctor, nurse practitioner, or physician???s produce assistant for ongoing care. If your symptoms [...] Follow-up Instructions: With: Address: When: DARWIN JONES [address] [place] [address] [place] [address] [phone] Business (1) In 3 days 09/09/2024 Comments: [...] participating provider. Patient Education Materials: Concussion, Adult, Sgeo-mb-Efls A MESSAGE TO ALL PATIENTS REGARDING OPIOIDS PRESCRIPTION OPIOIDS: WHAT YOU NEED TO KNOW Prescription opioids can be used to help relieve rrzpqnga-gl-wgfjrb pain and are often prescribed following a [...] (www.fda.gov/Drugs/Resourc esForYou). (more content not included)... [facility] BLOOD BANKOrdered By: Estefany Morillo on 09-05-2024 Fibronectin. Ql (Vag fld) Negative 1 (09/05/24 5:47 AM) Normal [facility] Comment on above: Interpretive Data: [...] Comment on above: Performed By: #### 2 [id number] #### [facility] [address] [place] [address] Calcium [Mass/Vol] 8.5 mg/dL Low 8.9-11.1 [facility] Comment on above: Performed By: #### 2 [id number] #### [facility] [address] [place] [address] Chloride [Moles/Vol] 108 mmol/L Normal 101-111 [facility] Comment on above: Performed By: #### 2 [id number] #### [facility] [address] [place] [address] CO2 [Moles/Vol] 17 mmol/L Low 21-31 [facility] Comment on above: Performed By: #### 2 [id number] #### [facility] [address] [place] [address] Creatinine [Mass/Vol] 0.4 mg/dL Low 0.5-1.3 [facility] Comment on above: Performed By: #### 2 [id number] #### [facility] [address] [place] [address] Glucose [Mass/Vol] 103 mg/dL Normal 55-199 [facility] Comment on above: Performed By: #### 2 [id number] #### [facility] [address] [place] [address] Potassium [Moles/Vol] 3.6 mmol/L Normal 3.5-5.3 [facility] Comment on above: Performed By: #### 2 586634 #### [facility] [address] [place] [address] Sodium [Moles/Vol] 137 mmol/L Normal 135-145 [facility] Comment on above: Performed By: #### 2 [id number] #### [facility] [address] [place] [address] Urea nitrogen [Mass/Vol] 9 mg/dL Normal 5-21 [facility] Comment on above: Performed By: #### 2 [id number] #### [facility] [address] [place] [address] Urea nitrogen/Creatinine [Mass ratio] 22 No Units High 10-20 [facility] Comment on above: Performed By: #### 2 140912 #### [facility] [address] [place] [address] CBC w/ Auto Diffon 5 Basophils/100 WBC (Bld) 0.4 % Normal 0.0-2.0 [facility] Comment on above: Performed By: #### 2 [id number] #### [facility] [address] [place] [address] Basophils/Leukocytes Auto (Bld) [Pure # fraction] 0.1 E9/L Normal 0.0-0.2 [facility] Comment on above: Performed By: #### 2 [id number] #### [facility] [address] [place] [address] Eosinophils (Bld) [#/Vol] 0.0 E9/L Normal 0.0-0.5 [facility] Comment on above: Performed By: #### 2 [id number] #### [facility] [address] [place] [address] Eosinophils/100 WBC (Bld) 0.3 % Normal 0.0-8.0 [facility] Comment on above: Performed By: #### 2 [id number] #### [facility] [address] [place] [address] Erythrocyte distribution width (RBC) [Ratio] 12.7 % Normal 10.9-14.2 [facility] Comment on above: Performed By: #### 2 [id number] #### [facility] [address] [place] [address] Hematocrit (Bld) [Volume fraction] 37.4 % Normal 34.0-46.0 [facility] Comment on above: Performed By: #### 2 951290 #### [facility] [address] [place] [address] Hemoglobin (Bld) [Mass/Vol] 13.2 g/dL Normal 12.0-16.0 [facility] Comment on above: Performed By: #### 2 012499 #### [facility] [address] [place] [address] Lymphocytes (Bld) [#/Vol] 1.1 E9/L Normal 1.0-4.0 [facility] Comment on above: Performed By: #### 2 316347 #### [facility] [address] [place] [address] Lymphocytes/100 WBC (Bld) 7.0 % Low 14.0-50.0 [facility] Comment on above: Performed By: #### 2 313687 #### [facility] [address] [place] [address] MCH (RBC) [Entitic mass] 33.0 pg Normal 27.0-34.0 [facility] Comment on above: Performed By: #### 2 553523 #### [facility] [address] [place] [address] MCHC (RBC) [Mass/Vol] 35.4 g/dL Normal 31.4-36.0 [facility] Comment on above: Performed By: #### 2 215487 #### [facility] [address] [place] [address] MCV (RBC) [Entitic vol] 93.3 fL Normal 80.0-100.0 [facility] Comment on above: Performed By: #### 2 095179 #### [facility] [address] [place] [address] Monocytes (Bld) [#/Vol] 0.7 E9/L Normal 0.2-1.0 [facility] Comment on above: Performed By: #### 2 221773 #### [facility] [address] [place] [address] Neutrophils (Bld) [#/Vol] 13.7 E9/L High 2.0-7.5 [facility] Comment on above: Performed By: #### 2 520085 #### [facility] [address] [place] [address] Neutrophils/100 WBC (Bld) 87.6 % High 36.0-75.0 [facility] Comment on above: Performed By: #### 2 145311 #### [facility] [address] [place] [address] Platelet 324.0 E9/L Normal 150.0-500. 0 [facility] Comment on above: Performed By: #### 2 583945 #### [facility] [address] [place] [address] Platelet mean volume (Bld) [Entitic vol] 8.3 fL Normal 6.4-10.8 [facility] Comment on above: Performed By: #### 2 001804 #### [facility] [address] [place] [address] [place] [address] RBC (Bld) [#/Vol] 4.0 E12/L Low 4.3-5.9 [facility] Comment on above: Performed By: #### 2 037279 #### [facility] [address] [place] [address] WBC corrected for nucl RBC Auto (Bld) [#/Vol] 15.6 E9/L High 4.0-11.0 [facility] Comment on above: Performed By: #### 2 270358 #### [facility] [address] [place] [address] CHEMISTRYOrdered By: SYSTEM SYSTEM on 09-05-2024 Albumin [...] Sensitivity Troponin I Instructions For Use, [facility], March 2018) Urea nitrogen [Mass/Vol] 9 mg/dL Normal 5 - 21 mg/dL [facility] Urea nitrogen/Creatinine [Mass ratio] 22 mg/mg High 10 - 20 [facility] ED Clinical Summaryon 2024 ED Clinical Summary ED Clinical Summary [place] [id number] ED Clinical Summary Person Information Name: TAWNYA HERRING Deysi/[facility] Age: 29 Years : 1995 Sex: Female Language: Northern Irish PCP: DARWIN JONES CNP Marital Status: Single Phone: [phone] Visit Id: Visit Reason: Abdominal pain - ; Vomiting - ; Syncope/Near syncope; PASSED OUT HIT HEAD,NAUSEA DIARRHEA VOMITING 30 WKS PREG Speciality: Acuity: 2 Enc Type: Emergency Med Service: Emergency Arrival: 09/05/2024 03:02:46 Discharge: LOS: 000 01:33 Checkin: 09/05/2024 03:02:46 Checkout: 09/05/2024 04:35:45 Dispo Type: Admitted as IP to this [facility] EVENTS: Event Name Event Status Request [...] 09/05/2024 04:35:45 09/05/2024 04:35:45 09/05/2024 04:35:45 ADDRESS: [address] [place] [phone] PHYS DOC NOTES: MEDICAL INFORMATION: Prescriptions Given: Medications to Continue with No Changes Other Medications citalopram (CeleXA 20 mg Tab) 1 Tablets By Mouth every day. PATIENT EDUCATION INFORMATION: Instructions: Syncope, Adult, Sjjx-ed-Pkpp; Nausea and Vomiting, Adult, Apfa-ql-Fvve; Diarrhea, Adult, Owlu-sm-Lqma; Dehydration, Adult, Arqq-fd-Kofp Follow up: With: Address: When: [address] [phone] Business (1) In 3 days 09/08/2024 Comments: Please follow-up with Dr. Way for further evaluation management. Please return to the ED for any new or worsening symptoms. DIAGNOSIS: Dehydration; Diarrhea, unspecified; Nausea, vomiting, and diarrhea; Syncope [facility] ED Note-Nursingon 09-05-2024 ED Note-Nursing ED Note-Nursing OB at bedside [facility] ED Note-Physicianon 09-05-19 ED Note-Physician [...] and Complexity of Problems Differential Diagnosis: [] [facility] Data External documents reviewed: [] My [...] Dayna 50 mL [F] 50 mL + [id number] [F] 25 mg, IV Piggyback Disposition Plan [...] Use, 03/12/2020 (more content not included)... [facility] Comment on above: Result Comment: Elec tronically Signed By: Gabriel Curtis DO\.br\Date and Time Signed: 09/05/24 04:22 EST ED Patient Summaryon 025 ED Patient Summary ED Patient Summary [place] [id number] Patient Discharge Instructions Person Information Name: TAWNYA HERRING Age: 29 Years Arrival Date: 09/05/2024 03:02:46 Discharge Diagnosis: Dehydration; Diarrhea, unspecified; Nausea, vomiting, and diarrhea; Syncope Primary Care Physician: DARWIN JONES CNP Provider Information Primary Provider: Gabriel Curtis DO Advanced Pageant Director:None The exam and treatment you received in the Emergency Department were for an urgent problem and are not intended as complete care. It is important that you follow up with a doctor, nurse practitioner, or physician???s produce assistant for ongoing care. If your symptoms [...] Follow-up Instructions: With: Address: Charissa: DARWIN JONES [address] [place] [id number] [phone] Business (1) In 3 days 09/08/2024 Comments: Please follow-up with Dr. Way for further evaluation management. Please return to the ED for any new or worsening symptoms. In the event that this physician does not participate in your insurance network, please consult with your insurance company to find a nearby participating provider. Patient Education Materials: Syncope, Adult, Xcuc-dw-Zred; Nausea and Vomiting, Adult, Ntbw-mx-Dvcp; Diarrhea, Adult, Vytr-oh-Nwtg; Dehydration, Adult, Dvzu-ui-Pszq A MESSAGE TO ALL PATIENTS REGARDING OPIOIDS PRESCRIPTION OPIOIDS: WHAT YOU NEED TO KNOW Prescription opioids can be used to help relieve whjwqxfu-hs-oabvuo pain and are often prescribed following a [...] down t (more content not included)... [facility] Extra Blueon 09-05-2024 Tube Collected Plasma Yes Invalid Interpretation Code [facility] Comment on above: Performed By: #### 1 [id number] #### [facility] [address] [place] [address] FFNon 09-05-2024 Fibronectin. Ql (Vag fld) Negative [facility] Comment on above: Result [...] the antibody-antigen reaction. Performed By: #### 1 [id number] #### [facility] [address] [place] [address] HEMATOLOGYOrdered By: SYSTEM SYSTEM on 09-05-2024 Basophils/100 [...] 09-05-2024 Albumin [Mass/Vol] 3.8 g/dL Normal 3.3-5.0 [facility] Comment on above: Performed By: #### 2 405663 #### [facility] [address] [place] [address] Albumin/Globulin (S) [Mass conc ratio] 1.5 Normal 1.1-2.2 [facility] Comment on above: Performed By: #### 2 074414 #### [facility] [address] [place] [address] ALP [Catalytic activity/Vol] 80 Int._Unit/L Normal 21-98 [facility] Comment on above: Performed By: #### 2 047124 #### [facility] [address] [place] [address] ALT No additional P-5'-P [Catalytic activity/Vol] 20 Int._Unit/L Normal 6-46 [facility] Comment on above: Performed By: #### 2 876144 #### [facility] [address] [place] [address] AST [Catalytic activity/Vol] 15 Int._Unit/L Normal 5-43 [facility] Comment on above: Performed By: #### 2 281563 #### [facility] [address] [place] [address] Bilirubin [Mass/Vol] 0.6 mg/dL Normal 0.0-1.1 [facility] Comment on above: Performed By: #### 2 259079 #### [facility] [address] [place] [address] Bilirubin.direct [Mass/Vol] 0.1 mg/dL Normal 0.0-0.4 [facility] Comment on above: Performed By: #### 2 360189 #### [facility] [address] [place] [address] Bilirubin.indirect [Mass or moles/Vol] 0.5 mg/dL Normal 0.1-0.9 [facility] Comment on above: Performed By: #### 2 054475 #### [facility] [address] [place] [address] Globulin (S) [Mass/Vol] 2.6 g/dL Normal 1.4-4.0 [facility] Comment on above: Performed By: #### 2 465382 #### [facility] [address] [place] [address] Protein [Mass/Vol] 6.4 g/dL Normal 6.0-7.8 [facility] Comment on above: Performed By: #### 2 463032 #### [facility] [address] [place] [address] Influenza A&B Agon Influenzae A Ag Negative Normal Negative [facility] Comment on above: Performed By: #### 1 [id number] #### [facility] [address] [place] [address] Influenzae B Ag Negative Normal Negative [facility] Comment on above: Result Comment: Test sensitivity and specificity vary for age group, specimen type, antigen types, and prevalence of disease. Test results must be evaluated in conjunction with other clinical data available to the physician. Individuals who received nasally administered Influenza A vaccine may have positive test results up to 3 days after vaccination. Performed By: #### 1 [id number] #### [facility] [address] [place] [address] Inpatient Clinical Summaryon 09-05-2024 Inpatient Clinical Summary Inpatient Clinical Summary [address] [address] Clinical Summary Person Information Name: TAWNYA HERRING Deysi/[facility] Age: 29 Years : 1995 Sex: Female PCP: DARWIN JONES CNP Marital Status: Single Phone: [phone] Race: White Ethnicity: Non- or Language: Northern Irish Visit Id: Visit Reason: Abdominal pain - ; Vomiting - ; Syncope/Near syncope; PASSED OUT HIT HEAD,NAUSEA DIARRHEA VOMITING 30 WKS PREG Speciality: Acuity: Obs Enc Type: Observation Med Service: Obstetrics Arrival: 09/05/2024 03:02:46 Discharge: 09/05/2024 15:50:00 Dispo Type: Home (Routine DC) Address: [address] [place] [phone] Provider Notes: Diagnosis: Dehydration; Diarrhea, unspecified; Nausea, [...] range between ( 80.0 and 100.0 ) Coffee Auto: 4.7 % -- Normal range between ( 4.0 and 14.0 ) MPV: 8.3 fL -- Normal range between ( 6.4 and 10.8 ) Neutro Auto: 87.6 % -- Normal range between ( 36.0 and 75.0 ) Platelet: 324.0 E9/L -- Normal range between ( 150.0 and 500.0 ) WBC: 15.6 E9/L -- Normal range between ( 4.0 and 11.0 ) Coffee Absolute: 0.7 E9/L -- Normal range between [...] 38.19 kg/m2 (more content not included)... [facility] Inpatient Patient Summaryon 09-05-2024 Inpatient Patient Summary Inpatient Patient Summary [address] [address] Patient Discharge Instructions PERSON INFORMATION Name: TAWNYA HERRING Date of : 1995 Current Date: 09/05/2024 16:15:55 PHYSICIANS Admitting Physician: Pham GALLAGHER, Rogelio Robins Primary Care Physician: DARWIN JONES CNP PCP Phone Number: [phone] Comment: Discharge Diagnosis: Dehydration; Diarrhea, unspecified; Nausea, [...] up: With: Address: When: [facility], [address] [place] [address] , [place] [address] [facility] (1) In 2 days 09/07/2024 Comments: 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 Medicines ??? Take zbgq-uhw-klxvvqy and prescription medicines only as told by [...] ? Flexing (more content not included)... [facility] Lipase Levelon 09-05-2024 Lipase [Catalytic activity/Vol] 18 U/L Normal 13-58 [facility] Comment on above: Performed By: #### 2 [id number] #### [facility] [address] [place] [address] MICRO OTHER TESTSOrdered By: Barrington Maxwell on 09-05-2024 Influenzae A Ag Negative (09/05/24 3:34 AM) Normal Negative [facility] Influenzae B Ag Negative 3 (09/05/24 3:34 AM) Normal Negative [facility] Comment on above: Interpretive Data: [...] Troponin HS 2.70 pg/mL Low 10.10-27.1 0 [facility] Comment on above: Result Comment: The 95% CI (Confidence Interval) PPV (Positive Predictive Value) for myocardial infarction in females is 38 pg/mL, in males 51 pg/mL. The results should be used in conjunction with clinical conditions of myocardial infarction. (Access High Sensitivity Troponin I Instructions For Use, [facility], March 2018) Performed By: #### 1 [id number] #### [facility] [address] [place] [address] UA with Cult Rflxon 09-05-19 25 Bacteria Auto Ql (U) Trace Normal Trace Fish er [facility] Comment on above: Performed By: #### 4 [id number] #### [facility] [address] [place] [address] Bilirubin Ql (U) 1+ mg/dL Abnormal Negative [facility] Comment on above: Performed By: #### 4 [id number] #### [facility] [address] [place] [address] Clarity (U) Turbid Abnormal Clear [facility] Comment on above: Performed By: #### 4 [id number] #### [facility] [address] [place] [address] Color (U) Dark-Yellow Abnormal Yellow [facility] Comment on above: Result Comment: Micr oscopic readings are only performed on those samples that meet specific criteria set forth by [facility]. Performed By: #### 4 [id number] #### [facility] [address] [place] [address] Epithelial cells.squamous Auto (Urine sed) [#/Area] 5-8 Invalid Interpretation Code [facility] Comment on above: Performed By: #### 4 [id number] #### [facility] [address] [place] [address] Glucose Ql (U) Trace Abnormal Negative [facility] Comment on above: Performed By: #### 4 [id number] #### [facility] [address] [place] [address] Hemoglobin Auto test strip (U) [Mass/Vol] Negative Normal Negative [facility] Comment on above: Performed By: #### 4 [id number] #### [facility] [address] [place] [address] Ketones Auto test strip Ql (U) 1+ mg/dL Abnormal Negative [facility] Comment on above: Performed By: #### 4 [id number] #### [facility] [address] [place] [address] Leukocyte esterase Auto test strip Ql (U) 25 Chaparrita/uL Normal Negative [facility] Comment on above: Performed By: #### 4 [id number] #### [facility] [address] [place] [address] Mucus Auto Ql (U) 4+ [id number] Abnormal Negative [facility] Comment on above: Performed By: #### 4 [id number] #### [facility] [address] [place] [address] Nitrite Auto test strip Ql (U) 1+ mg/dL Abnormal Negative [facility] Comment on above: Performed By: #### 4 [id number] #### [facility] [address] [place] [address] pH (U) 5.5 [pH] Invalid Interpretation Code 5.0-9.0 [facility] Comment on above: Performed By: #### 4 [id number] #### [facility] [address] [place] [address] Protein Ql (U) 1+ mg/dL Abnormal Negative [facility] Comment on above: Performed By: #### 4 [id number] #### [facility] [address] [place] [address] RBC Ql (U) 0-3 Normal 0-3 [facility] Comment on above: Performed By: #### 4 [id number] #### [facility] [address] [place] [address] Specific gravity (U) [Rel density] 1.029 Invalid Interpretation Code 1.005-1.03 0 [facility] Comment on above: Performed By: #### 4 [id number] #### [facility] [address] [place] [address] Urobilinogen (U) [Mass/Vol] 2 mg/dL Abnormal Negative [facility] Comment on above: Performed By: #### 4 [id number] #### [facility] [address] [place] [address] WBC Auto (Urine sed) [#/Area] 0-5 Normal 0-5 [facility] Comment on above: Performed By: #### 4 [id number] #### [facility] [address] [place] [address] Type of Urine collection method Clean Catch Normal [facility] Comment on above: Performed By: #### 4 [id number] #### [facility] [address] [place] [address] URINALYSISOrdered By: SYSTEM SYSTEM on 09-05-2024 Bacteria [...] that meet specific criteria set forth by [facility]. Epithelial cells.squamous Auto (Urine [...] 1+ mg/dL Invalid Interpretation Code Negativemg /dL [facility] [place] Auto SS pH (U) 5.5 *NA* (09/05/24 5:25 AM) Invalid Interpretation Code 5.0 - 9.0 [facility] [place]A Auto SS Protein Ql (U) 1+ mg/dL Invalid Interpretation Code Negativemg /dL [facility] UA Auto SS RBC Ql (U) 0-3 graded/HPF Normal 0-3graded/ HPF [facility] UA Auto SS Specific gravity (U) [Rel density] 1.029 *NA* (09/05/24 5:25 AM) Invalid Interpretation Code 1.005 - 1.030 [facility] UA Auto SS Urobilinogen (U) [Mass/Vol] 2 mg/dL Invalid Interpretation Code Negativemg /dL [facility] UA Auto SS WBC Auto (Urine sed) [#/Area] 0-5 graded/HPF Normal 0-5graded/ HPF [facility] UA Auto SS URINALYSISOrdered By: Rica Islas on 09-05-2024 UA Spec Desc Clean Catch (09/05/24 5:25 AM) Normal [facility] UA Auto SS eGFRon 09-05-2024 eGFR 138 mL/min/1.73 m2 Normal >=59 [facility] Comment on above: Performed By: #### 1 [id number] #### [facility] [address] [place] [address] ALL CBC WITH AUTO DIFFon BASOPHILS ABSOLUTE AUTO 0 [facility] Basophils/100 WBC (Bld) 0.2 % 0.2 - 2.0 % [facility] Eosinophils/100 WBC (Bld) 0.8 % Low 0.9 - 7.0 % [facility] Erythrocyte distribution width (RBC) [Ratio] 12.1 % 11.0 - 15.0 % [facility] Hematocrit (Bld) [Volume fraction] 33.9 % Low 36.0 - 48.0 % [facility] Hemoglobin (Bld) [Mass/Vol] 11.6 g/dL Low 12.0 - 16.0 g/dL [facility] IMMATURE GRANULOCYTES ABS AUTO 0.03 [facility] Immature granulocytes/100 WBC (Bld) 0.3 % 0.0 - 0.5 % [facility] Interpretation and review of laboratory results Abnormal [facility] LYMPHOCYTES ABSOLUTE AUTO 1.8 [facility] Lymphocytes/100 WBC (Bld) 19.8 % Low 20.5 - 60.0 % [facility] MCH (RBC) [Entitic mass] 32.9 pg 26.7 - 34.0 pg [facility] MCHC (RBC) [Mass/Vol] 34.2 g/dL 29.9 - 35.2 g/dL [facility] MCV (RBC) [Entitic vol] 96 fL 81.0 - 99.0 fL [facility] MONOCYTES ABSOLUTE AUTO 0.5 [facility] Monocytes/100 WBC (Bld) 5.4 % 1.7 - 12.0 % [facility] NEUTROPHILS ABSOLUTE AUTO 6.6 High [facility] Neutrophils/100 WBC (Bld) 73.5 % 43.0 - 75.0 % [facility] Platelet mean volume (Bld) [Entitic vol] 10.2 fL 9.5 - 13.5 fL [facility] TBH EO # 0.1 [facility]H PLT 287 [facility] RBC 3.53 Low [facility]H WBC 9 [facility] Basophils Auto (Bld) [#/Vol] on 08-25-2024 Basophils (Bld) [#/Vol] Automated basophil count 0.0-0.1 [facility] Basophils/100 WBC Auto (Bld) on 08-25-2024 Basophils/100 WBC (Bld) Automated basophil % 0.2-2.0 [facility] Eosinophils/100 WBC Auto (Bl d)on 08-25-2024 Eosinophils/100 WBC (Bld) Automated eosinophil % Low 0.9-7.0 [facility] Erythrocyte distribution wid th Auto (RBC) [Ratio]on 08-25-2024 Erythrocyte distribution width (RBC) [Ratio] Erythrocyte distribution width [Ratio] by Automated count 11.0-15.0 [facility] FPG ECG *CARDIOLOGY ONLY*on 08-25-2024 FPG ECG *CARDIOLOGY ONLY* [facility] [address] [address] Electrocardiograph Report Signed Patient: Tawnya Herring MR#: [id number] 29 : 1995 Acct:[id number] Age/Sex: 29 / F ADM Date: 08/25/24 Loc: EKGCARDIO Room: Type: REG CLI Attending Dr: Mary Ellen Bruce MD Ordering [...] Normal ECG Confirmed by Mary Ellen Bruce ([id number]) on 08/25/2024 1:42:57 PM Referred By: Electronically Signed By: Mary Ellen Bruce Transcribed By: MUS Signed By Mary Ellen Bruce MD 5 1342 Normal [facility] Hematocrit Auto (Bld) [Volum e fraction]on 08-25-2024 Hematocrit (Bld) [Volume fraction] Hematocrit [Volume Fraction] of Blood by Automated count Low 36.0-48.0 [facility] Hemoglobin [Mass/volume] in Bloodon 08-25-2024 Hemoglobin (Bld) [Mass/Vol] Hemoglobin [Mass/volume] in Blood Low 12.0-16.0 [facility] Laboratory - Chemistry and C hemistry - challengeon 08-25-2024 Glucose [Mass/Vol] 131 mg/dL High <130 [facility] Laboratory - Hematology and Cell countson 08-25-2024 Immature granulocytes/100 WBC (Bld) 0.3 % 0.0-0.5 [facility] Leukocytes [#/volume] correc hamilton for nucleated erythrocytes in Blood by Automated counon 08-25-2024 WBC corrected for nucl RBC Auto (Bld) [#/Vol] Leukocytes [#/volume] corrected for nucleated erythrocytes in Blood by Automated coun 4.0-11.0 [facility] Lymphocytes Auto (Bld) [#/Vo l]on 08-25-2024 Lymphocytes (Bld) [#/Vol] Lymphocytes [#/volume] in Blood by Automated count 1.2-3.8 [facility] Lymphocytes/100 WBC Auto (Bl d)on 08-25-2024 Lymphocytes/100 WBC (Bld) Lymphocytes/100 leukocytes in Blood by Automated count Low 20.5-60.0 [facility] MCH Auto (RBC) [Entitic mass ]on 08-25-2024 MCH (RBC) [Entitic mass] MCH [Entitic mass] by Automated count 26.7-34.0 [facility] MCHC Auto (RBC) [Mass/Vol]on 08-25-2024 MCHC (RBC) [Mass/Vol] MCHC [Mass/volume] by Automated count 29.9-35.2 [facility] MCV Auto (RBC) [Entitic vol] on 08-25-2024 MCV (RBC) [Entitic vol] MCV [Entitic volume] by Automated count 81.0-99.0 [facility] Monocytes Auto (Bld) [#/Vol] on 08-25-2024 Monocytes (Bld) [#/Vol] Automated blood monocyte count 0.3-0.8 [facility] Monocytes/100 WBC Auto (Bld) on 08-25-2024 Monocytes/100 WBC (Bld) Automated monocyte % 1.7-12.0 [facility] Neutrophils Auto (Bld) [#/Vo l]on 08-25-2024 Neutrophils (Bld) [#/Vol] Neutrophils [#/volume] in Blood by Automated count High 1.4-6.5 [facility] Neutrophils/100 WBC Auto (Bl d)on 08-25-2024 Neutrophils/100 WBC (Bld) Automated neutrophil % 43.0-75.0 [facility] No Panel Informationon 08-25 Eosinophils # (Auto) 0.1 10 3/uL 0.0-0.7 [facility] Immature Granulocyte # (Auto) 0.03 10 3/uL 0.00-0.03 [facility] Platelet mean volume Auto (B ld) [Entitic vol]on 08-25-2024 Platelet mean volume (Bld) [Entitic vol] Platelet mean volume [Entitic volume] in Blood by Automated count 9.5-13.5 [facility] Platelets Auto (Bld) [#/Vol] on 08-25-2024 Platelets (Bld) [#/Vol] Platelets [#/volume] in Blood by Automated count 150-450 [facility] RBC Auto (Bld) [#/Vol]on RBC (Bld) [#/Vol] Erythrocytes [#/volu me] in Blood by Automated count Low 4.20-5.40 [facility] Urinalysis macro (dipstick) panel (U)on 08-23-2024 Bilirubin, UA Negative Negative - 4(70) +++ mg/dL [facility] Blood, UA Negative Negative - 50 Dain/mcL [facility] Clarity, UA Clear [facility] Color, UA Yellow [facility] Glucose, UA Negative Negative - 1999(110) ++++ mg/dL [facility] Interpretation and review of laboratory results Abnormal [facility] Ketones, UA Negative Negative - 160(16) ++++ mg/dL [facility] Leukocytes, UA Positive Negative - 500+++ Chaparrita/mcL [facility] Comment on above: small Nitrite, UA Negative Negative - Positive [facility] pH, UA 7 5 - 9 [facility] Protein, UA Negative Negative - 1999(20) ++++ mg/dL [facility] Spec Grav, UA 1.02 1 - 1.03 [facility] Urobilinogen, UA 0.2 0.2 - 12 mg/dL [facility] Thyroid Stimulating Hormoneo n 07-31-2024 TSH Qn 2.07 m[IU]/L Normal 0.45-5.33 [facility] Comment on above: Result Comment: PERF ORMED BY: [facility] [address] [place] [address] PATHOLOGIST [employer]ER MIS SCHMIDT M.D. Performed By: #### T SH3 ####[facility] [id number] [place] [address] [facility] Thyrotropin [Units/volume] i n Serum or PlasmaOrdered By: Brain Way on 07-31-2024 TSH Qn Thyrotropin [Units/v olume] in Serum or Plasma 0.45-5.33 [facility] Urinalysis macro (dipstick) panel (U)on 07-11-2024 Bilirubin, UA Negative Negative - 4(70) +++ mg/dL [facility] Blood, UA Negative Negative - 50 Dain/mcL [facility] Clarity, UA Clear [facility] Color, UA Yellow [facility] Glucose, UA Negative Negative - 1999(110) ++++ mg/dL [facility] Interpretation and review of laboratory results Abnormal [facility] Ketones, UA Negative Negative - 160(16) ++++ mg/dL [facility] Leukocytes, UA Trace Negative - 500+++ Chaparrita/mcL [facility] Nitrite, UA Negative Negative - Positive [facility] pH, UA 6 5 - 9 [facility] Protein, UA Negative Negative - 1999(20) ++++ mg/dL [facility] Spec Grav, UA 1.01 1 - 1.03 [facility] Urobilinogen, UA 0.2 0.2 - 12 mg/dL [facility] Alpha-fetoprotein (AFP) luis urement (yhtpczrw-bg-jceduz)Ordered By: Brain Way on 06-28-2024 AFP [MoM] Alpha-fetoprotein (A FP) measurement (qlzmwagp-an-ywphhk) . [facility] Determination of gestational ageOrdered By: Brain Way on 06-28-2024 Gestational age Assess gestational age . [facility] Estimation of maternal age-s pecific risk of Down syndrome birthOrdered By: Brain Way on 06-28-2024 Age [Time] Estimation of matern al age-specific risk of Down syndrome . [facility] Human chorionic gonadotropin (hCG) multiple of median measurementOrdered By: Brain Way on 06-28-2024 HCG [MoM] Human chorionic gonadotropin (hCG) multiple of median measurement . [facility] Insulin dependent diabetes m ellitus detectionOrdered By: Brain Way on 06-28-2024 Insulin dependent diabetes mellitus Ql Insulin dependent diabetes mellitus detection . [facility] Interpretation of serum or p lasma second trimester quad maternal screen (narrative reOrdered By: Brain aWy on 06-28-2024 Second trimester quad maternal screen Mathew [Interp] Interpretation of serum or plasma second trimester quad maternal screen (narrative re . [facility] Comment on above: Interpretation:An in terpretation CANNOT be provided for this patientbecause necessary patient information was not provided (oneor more of: gestational age, weight, or patient age).Please call us with new clinical information.Recalculations are not recommended when gestational datingby LMP and ultrasound are within 10 days. No Panel InformationOrdered By: Brain Way on 06-28-2024 AFP Triple Screen Comment Comment . [facility] Comment on above: Stephanie Pinto , Ph.D., DABCCDirectorReferences: Available Upon Request.Multiples Of Median Cutoffs Abbreviation Definitions For AFP Elevations IDD- Insulin Dep DiabetesSingleton 2.5 Black 2.8 OSBR- Open Spina BifidaIDD 2.0 Twins 4.5 RiskDSR Cutoff 1:270 DSR- Down Syndrome RiskT18 Cutoff 1:100 T18- Trisomy 18For further inquiries contact [employer] Servicesat [phone].This test was developed and its performance characteristicsdetermined by [facility]. It has not been cleared or approvedby the Food and Drug Administration.Performed at: [facility] [place] [id number] [place], [place] [id number] Director: Aubrey Moreno [facility], Phone: [phone] Alpha Fetoprotein Results Received Report . [facility] Down Syndrome Age Equivalent See interpretation. . [facility] Gestational Age Calculation Method Ultrasound . [facility] Comment on above: 18:5 on 06/12/2024 Maternal Quad Test Risk See interpretation. . [facility] Maternal Race . [facility] Multiple No . [facility] Serum or plasma douli-2-abvs protein measurement (mass/volume)Ordered By: Brain Way on 06-28-2024 AFP [Mass/Vol] Serum or plasma terjq-8-gnlcfxoinjz measurement (mass/volume) . [facility] Serum or plasma inhibin A me asurement (adjusted kbyeuplw-lc-eixhbr)Ordered By: Brain Way on 06-28-2024 Inhibin A adjusted [MoM] Serum or plasma inhibin A measurement (adjusted twjmrwld-hz-pfkwdw) . [facility] Serum or plasma inhibin A me asurement (mass/volume)Ordered By: Brain Way on 06-28-2024 Inhibin A [Mass/Vol] Inhibin A [Mass/vol ume] in Serum or Plasma . [facility] Serum or plasma total combin ed intact choriogonadotropin and beta subunit measurementOrdered By: Brain Way on 06-28-2024 HCG.intact+Beta subunit Qn Serum or plasma total combined intact choriogonadotropin and beta subunit measurement . [facility] Serum or plasma unconjugated estriol (E3) measurement (adjusted mrovmijq-gf-rewbay)Ordered By: Brain Way on 06-28-2024 E3.unconjugated adjusted [MoM] Serum or plasma unconjugated estriol (E3) measurement (adjusted rviykjua-pw-quqshs) . [facility] Serum or plasma unconjugated estriol (E3) measurement (mass/volume)Ordered By: Brain Way on 06-28-2024 E3.unconjugated [Mass/Vol] Serum or plasma unconjugated estriol (E3) measurement (mass/volume) . [facility] Thyroid Stimulating Hormoneo n 06-28-2024 TSH Qn 3.44 m[IU]/L Normal 0.45-5.33 [facility] Comment on above: Result Comment: PERF ORMED BY: [place] [address] PATHOLOGIST [employer] CLEANER JORDI SMITH M.D. Performed By: #### T COX BRANSON #### [address] Thyrotropin [Units/volume] i n Serum or PlasmaOrdered By: Brain Way on 06-28-2024 TSH Qn Thyrotropin [Units/v olume] in Serum or Plasma 0.45-5.33 [facility] Trisomy 21 risk determinatio n in fetusOrdered By: Brain Way on 06-28-2024 Trisomy 21 risk Qn (fetus) Trisomy 21 risk determination in fetus . [facility] US OB >= 14 weeks Fetuson US OB >= 14 weeks Fetus [facility] [place] [place] [address] Ultrasound Report Signed Patient: Tawnya Herring MR#: [id number] 29 : 1995 Acct:[id number] Age/Sex: 28 / F ADM Date: 06/22/24 Loc: Room: Type: REG CLI Attending Dr: Brain Way DO Ordering Provider: [...] Norton Jr., D.O.06/22/2024 4:00 PM Dictation Location: [place] [address] Tech: Rae Baldev Transcribed By: AGUILAR 06/22/24 1600 Dictated By: Zay Norton Jr, DO 06/22/24 1552 Signed By: 06/22/24 1600 Normal [facility] Urinalysis macro (dipstick) panel (U)on 06-12-2024 Bilirubin, UA Negative Negative - 4(70) +++ mg/dL [facility] Blood, UA Negative Negative - 50 Dain/mcL [facility] Clarity, UA Clear [facility] Color, UA Yellow [facility] Glucose, UA Negative Negative - 2000(110) ++++ mg/dL [facility] Interpretation and review of laboratory results Abnormal [facility] Ketones, UA Negative Negative - 160(16) ++++ mg/dL [facility] Leukocytes, UA Positive Negative - 500+++ Chaparrita/mcL [facility] Comment on above: small Nitrite, UA Negative Negative - Positive [facility] pH, UA 6 5 - 9 [facility] Protein, UA Negative Negative - 1999(20) ++++ mg/dL [facility] Spec Grav, UA 1.025 1 - 1.03 [facility] Urobilinogen, UA 1.0 0.2 - 12 mg/dL [facility] Thyrotropin [Units/volume] i n Serum or PlasmaOrdered By: Brain Way on 05-24-2024 TSH Qn 2.42 m[IU]/L Normal 0.45-5.33 [facility] Comment on above: Result Comment: PERF ORMED BY: [place] [address] PATHOLOGIST [employer]ESHOP CLEANER JORDI SMITH M.D. Performed By: #### T SH3 #### [address] TSH Qn Thyrotropin [Units/v olume] in Serum or Plasma 0.45-5.33 [facility] Urinalysis macro (dipstick) panel (U)on 05-10-2024 Bilirubin, UA Negative Negative - 4(70) +++ mg/dL [facility] Blood, UA Negative Negative - 50 Dain/mcL [facility] Clarity, UA Clear [facility] Color, UA Yellow [facility] Glucose, UA Negative Negative - 1999(110) ++++ mg/dL [facility] Interpretation and review of laboratory results Normal [facility] Ketones, UA Negative Negative - 160(16) ++++ mg/dL [facility] Leukocytes, UA Negative Negative - 500+++ Chaparrita/mcL [facility] Nitrite, UA Negative Negative - Positive [facility] pH, UA 6.5 5 - 9 [facility] Protein, UA Negative Negative - 1999(20) ++++ mg/dL [facility] Spec Grav, UA 1.020 1 - 1.03 [facility] Urobilinogen, UA 1.0 0.2 - 12 mg/dL [facility] IGP,APTIMA HPV,AGE GDLNon AGE GDLN ACOG TESTING Note . [facility] Comment on above: TESTS RESULT FLAG [facility] REF RANGE LAB Clinician Provided Cytology Information Source.............Cervix No. of containers..01 ThinPrep Vial Age Algo ACOG Mariel... FLAG LEGEND: L-Low Normal,H-High Normal,LL-Alert Low,HH-Alert High <-Panic Low,>-Panic High,A-Abnormal,AA-Critical Abnormal Performed at: 01 =G [facility] [address] Christelle Galan MD, IGP, RFX APTIMA HPV ASCU Note . [facility] Comment on above: TESTS RESULT FLAG [facility] REF RANGE LAB DIAGNOSIS: 02 NEGATIVE FOR INTRAEPITHELIAL LESION OR MALIGNANCY. Specimen adequacy: 02 Satisfactory for evaluation. Endocervical and/or squamous metaplastic cells (endocervical component) are present. Performed by: 02 Vanessa Ornelas, Physician In Private Practice . 02 Note: Note 02 The Pap [...] <-Panic Low,>-Panic High,A-Abnormal,AA-Critical Abnormal Performed at: [address] [id number] Christelle Galan MD, Performed at: = - [facility] [id number] [employer] Res[employer]: Christelle Galan MD, Phone: [phone] Performed at: [facility] [address] [id number] [employer] Res[employer]: Christelle Galan MD, Phone: [phone] [facility] URETHRITIS/DISCHARGE PLUS VA GINITIS (HTRX)on 04-22-2024 ATOPOBIUM VAGINAE 0.000 [facility] ATOPOBIUM VAGINAE Not detected [facility] BVAB 2,3 (BACTERIAL VAGINOSIS ASSOCIATED BACTERIA 2, 3); MOBILUNCUS SPP 24.821 Abnormal [facility] BVAB 2,3 (BACTERIAL VAGINOSIS ASSOCIATED BACTERIA 2, 3); MOBILUNCUS SPP Detected Abnormal [facility] JANET ALBICANS, PARAPSILOSIS, TROPICALIS 0.000 [facility] JANET ALBICANS, PARAPSILOSIS, TROPICALIS Not detected [facility] JANET GLABRATA 0.000 [facility] JANET GLABRATA Not detected [facility] JANET KRUSEI 0.000 [facility] JANET KRUSEI Not detected [facility] CHLAMYDIA TRACHOMATIS 0.000 [facility] CHLAMYDIA TRACHOMATIS Not detected [facility] GARDNERELLA VAGINALIS 0.000 [facility] GARDNERELLA VAGINALIS Not detected N [facility] Interpretation and review of laboratory results Abnormal [facility] MEGASPHAERA (TYPES 1, 2) 0.000 [facility] MEGASPHAERA (TYPES 1, 2) Not detected [facility] MYCOPLASMA GENITALIUM 0.000 [facility] MYCOPLASMA GENITALIUM Not detected N [facility] NEISSERIA GONORRHOEAE 0.000 [facility] NEISSERIA GONORRHOEAE Not detected N [facility] TRICHOMONAS VAGINALIS 0.000 [facility] TRICHOMONAS VAGINALIS Not detected N [facility] Urinalysis macro (dipstick) panel (U)on 04-20-2024 Bilirubin, UA Negative Negative - 4(70) +++ mg/dL [facility] Blood, UA Positive Negative - 50 Dain/mcL [facility] Comment on above: trace-intact Clarity, UA Clear [facility] Color, UA Yellow [facility] Glucose, UA Negative Negative - 1999(110) ++++ mg/dL [facility] Interpretation and review of laboratory results Abnormal [facility] Ketones, UA Negative Negative - 160(16) ++++ mg/dL [facility] Leukocytes, UA Trace Negative - 500+++ Chaparrita/mcL [facility] Nitrite, UA Negative Negative - Positive [facility] pH, UA 6.0 5 - 9 [facility] Protein, UA Negative Negative - 2000(20) ++++ mg/dL [facility] Spec Grav, UA 1.030 1 - 1.03 [facility] Urobilinogen, UA 0.2 0.2 - 12 mg/dL [facility] CBC without diffon Hematocrit (Bld) [Volume fraction] 37.3 % [facility] Hemoglobin (Bld) [Mass/Vol] 13.3 g/dL [facility] Rbc Mcv (Fl) By Automated Count 92.1 [facility] No Panel Informationon 04-13 [facility] Rubella IGG immune statuson 04-13-2024 Rubella immune IgG 1.33 [facility] Syphilis Total(Unknown Syphi lis Status)on 04-13-2024 Syphilis Non-Reactive [facility] TBH BOX TEST SENT OUTon 03-17 BOX TEST SENT OUT 04/13/24 [facility] Drug Screen, Urineon 024 Amphetamine/Methamphe tamine Negative [facility] Barbiturate Screen Urine Negative [facility] Benzodiazepine Screen, Urine Negative [facility] [facility] Cocaine Metabolite Negative [facility] Methadone,Meconium Negative [facility] Opiate Quantitative Urine Negative [facility] Oxycodone Negative [facility] Phencyclidine Negative [facility] Thc Marijuana, Urine Negative [facility] HCG ( test) Ql (U)o n 04-07-2024 Interpretation and review of laboratory results Abnormal [facility] Preg Test, Ur Positive [facility] Urinalysis macro (dipstick) panel (U)on 04-07-2024 Bilirubin, UA Negative Negative - 4(70) +++ mg/dL [facility] Blood, UA Negative Negative - 50 Dain/mcL [facility] Clarity, UA Clear [facility] Color, UA Yellow [facility] Glucose, UA Negative Negative - 1999(110) ++++ mg/dL [facility] Interpretation and review of laboratory results Abnormal [facility] Ketones, UA Negative Negative - 160(16) ++++ mg/dL [facility] Leukocytes, UA Positive Negative - 500+++ Chaparrita/mcL [facility] Comment on above: small Nitrite, UA Negative Negative - Positive [facility] pH, UA 7.0 5 - 9 [facility] Protein, UA Negative Negative - 1999(20) ++++ mg/dL [facility] Spec Grav, UA 1.025 1 - 1.03 [facility] Urobilinogen, UA 0.2 0.2 - 12 mg/dL [facility] Automated basophil %Ordered By: Addi Ortega on 04-06-2024 Basophils/100 WBC (Bld) 0.2 % Normal . [facility] Comment on above: Performed By: #### P ILLAR TSH, PILLAR LIPID, PILLAR CBC, PILLAR BMP #### [address] Automated basophil countOrde red By: Addi Ortega on 04-06-2024 Basophils (Bld) [#/Vol] 0.0 10*3/uL Normal 0.0-0.2 [facility] Comment on above: Result Comment: PERF ORMED BY: [place] [address] PATHOLOGIST [employer] JORDI SMITH M.D. Performed By: #### P ILLAR TSH, PILLAR LIPID, PILLAR CBC, PILLAR BMP #### [address] Automated blood monocyte cou ntOrdered By: Addi Ortega on 04-06-2024 Monocytes (Bld) [#/Vol] 0.5 10*3/uL Normal 0.0-0.8 [facility] Comment on above: Performed By: #### P ILLAR TSH, PILLAR LIPID, PILLAR CBC, PILLAR BMP #### [address] Automated eosinophil %Ordere d By: Addi Ortega on 04-06-2024 Eosinophils/100 WBC (Bld) 0.5 % Normal . [facility] Comment on above: Performed By: #### P ILLAR TSH, PILLAR LIPID, PILLAR CBC, PILLAR BMP #### [address] Automated eosinophil countOr dered By: Addi Ortega on 04-06-2024 Eosinophils (Bld) [#/Vol] 0.0 10*3/uL Normal 0.0-0.45 [facility] Comment on above: Performed By: #### P ILLAR TSH, PILLAR LIPID, PILLAR CBC, PILLAR BMP #### [address] Automated monocyte %Ordered By: Addi Ortega on 04-06-2024 Monocytes/100 WBC (Bld) 5.6 % Normal . [facility] Comment on above: Performed By: #### P ILLAR TSH, PILLAR LIPID, PILLAR CBC, PILLAR BMP #### [facility] [address] Automated neutrophil %Ordere d By: Addi Ortega on 04-06-2024 Neutrophils/100 WBC (Bld) 64.9 % Normal . [facility] Comment on above: Performed By: #### P ILLAR TSH, PILLAR LIPID, PILLAR CBC, PILLAR BMP #### [facility] [address] Basophils Auto (Bld) [#/Vol] Ordered By: Addi Ortega on 04-06-2024 Basophils (Bld) [#/Vol] Automated basophil count 0.0-0.2 [facility] Basophils/100 WBC Auto (Bld) Ordered By: Addi Ortega on 04-06-2024 Basophils/100 WBC (Bld) Automated basophil % . [facility] Calcium [Mass/volume] in Ser um or PlasmaOrdered By: Addi Ortega on 04-06-2024 Calcium [Mass/Vol] 8.9 mg/dL Normal 8.6-10.3 [facility] Comment on above: Performed By: #### P ILLAR TSH, PILLAR LIPID, PILLAR CBC, PILLAR BMP #### [address] Calcium [Mass/Vol] Calcium [Mass/volume ] in Serum or Plasma 8.6-10.3 [facility] Carbon dioxide, total [Moles /volume] in Serum or PlasmaOrdered By: Addi Ortega on 04-06-2024 CO2 [Moles/Vol] 22.0 mmol/L Normal 21.0-31.0 [facility] Comment on above: Performed By: #### P ILLAR TSH, PILLAR LIPID, PILLAR CBC, PILLAR BMP #### [facility] [address] CO2 [Moles/Vol] Carbon dioxide, tota l [Moles/volume] in Serum or Plasma 21.0-31.0 [facility] Chloride [Moles/volume] in S ghada or PlasmaOrdered By: Addi Ortega on 04-06-2024 Chloride [Moles/Vol] 106 mmol/L Normal 98-107 [facility] Comment on above: Performed By: #### P ILLAR TSH, PILLAR LIPID, PILLAR CBC, PILLAR BMP #### [facility] [address] [place] [id number] [facility] Chloride [Moles/Vol] Chloride [Moles/vol ume] in Serum or Plasma 98-107 [facility] Cholesterol [Mass/volume] in Serum or PlasmaOrdered By: Addi Ortega on 04-06-2024 Cholesterol [Mass/Vol] 159 mg/dL Normal 140-200 [facility] Comment on above: Chol less than 200 m g/dl low riskChol 201-239 mg/dl borderline riskChol 240 mg/dl and greater high risk Result Comment: Chol less than 200 mg/dl low risk Chol 201-239 mg/dl borderline risk Chol 240 mg/dl and greater high risk Performed By: #### P ILLAR TSH, PILLAR LIPID, PILLAR CBC, PILLAR BMP #### [facility] [address] [place] [id number] [facility] Cholesterol [Mass/Vol] Cholesterol [Mass/volume] in Serum or Plasma 140-200 [facility] Comment on above: Chol less than 200 m g/dl low riskChol 201-239 mg/dl borderline riskChol 240 mg/dl and greater high risk Cholesterol in HDL [Mass/vol ume] in Serum or PlasmaOrdered By: Addi Ortega on 04-06-2024 Cholesterol in HDL [Mass/Vol] Serum or plasma high density lipoprotein (HDL) cholesterol measurement 23- [facility] Comment on above: HDL CHOL ATP-III CLA SSIFICATION Cardiovascular RiskHDL > or equal to 60 mg/dL LOWHDL < 40 mg/dL HIGH Cholesterol in LDL Calc [Mas s/Vol]Ordered By: Addi Ortega on 04-06-2024 Cholesterol in LDL [Mass/Vol] 95 mg/dL 0-100 [facility] Comment on above: LDL ATP III CLASSIFI CATIONLDL less than 100 mg/dL OptimalLDL 100-129 mg/dL Near or above optimalLDL 130-159 mg/dL Borderline highLDL 160-189 mg/dL HighLDL greater than 189 mg/dL Very high Cholesterol in LDL [Mass/Vol] Cholesterol in LDL [Mass/volume] in Serum or Plasma by calculation 0-100 [facility] Comment on above: LDL ATP III CLASSIFI CATIONLDL less than 100 mg/dL OptimalLDL 100-129 mg/dL Near or above optimalLDL 130-159 mg/dL Borderline highLDL 160-189 mg/dL HighLDL greater than 189 mg/dL Very high Cholesterol in VLDL Calc [Ma ss/Vol]Ordered By: Addi Ortega on 04-06-2024 Cholesterol in VLDL [Mass/Vol] 15 mg/dL [facility] Cholesterol in VLDL [Mass/Vol] Cholesterol in VLDL [Mass/volume] in Serum or Plasma by calculation [facility] Creatinine [Mass/volume] in Serum or PlasmaOrdered By: Addi Ortega on 04-06-2024 Creatinine [Mass/Vol] 0.44 mg/dL Low 0.60-1.20 [facility] Comment on above: Performed By: #### P ILLAR TSH, PILLAR LIPID, PILLAR CBC, PILLAR BMP #### [address] Creatinine [Mass/Vol] Creatinine [Mass/v olume] in Serum or Plasma Low 0.60-1.20 [facility] Employee Basic Metabolic [employer] 04-06-2024 GFR/1.73 sq M.predicted MDRD (S/P/Bld) [Vol rate/Area] mL/min/{1.73_m2} Normal [facility] Comment on above: Performed By: #### P ILLAR TSH, PILLAR LIPID, PILLAR CBC, PILLAR BMP #### [address] Employee Complete Blood Coun ton 04-06-2024 Mean Corpuscular HGB Conc 35.4 g/dL High 32.0-35.0 [facility] Comment on above: Performed By: #### P ILLAR TSH, PILLAR LIPID, PILLAR CBC, PILLAR BMP #### [address] NRBC% 0.0 /100{WBC} Normal 0-0.5 [facility] Comment on above: Performed By: #### P ILLAR TSH, PILLAR LIPID, PILLAR CBC, PILLAR BMP #### [facility] [address] Employee Lipid Profileon LDL Cholesterol,Calculate d 95 mg/dL Normal 0-100 [facility] Comment on above: Result Comment: LDL ATP III CLASSIFICATION LDL less than 100 mg/dL Optimal LDL 100-129 mg/dL Near or above optimal LDL 130-159 mg/dL Borderline high LDL 160-189 mg/dL High LDL greater than 189 mg/dL Very high Performed By: #### P ILLAR TSH, PILLAR LIPID, PILLAR CBC, PILLAR BMP #### [facility] [address] Triglyceride w/Reflex 79 mg/dL Normal 0-149 [facility] Comment on above: Result Comment: TRIG ATP III CLASSIFICATION TRIG less than 150 mg/dL Normal TRIG 150-199 mg/dL Borderline high TRIG 200-500 mg/dL High TRIG greater than 500 mg/dL Very high Standard traceable to the Center for Disease Conrtrol and Prevention (CDC) test method. Performed By: #### P ILLAR TSH, PILLAR LIPID, PILLAR CBC, PILLAR BMP #### [address] VLDL CHOLESTEROL 15 mg/dL Normal [facility] Comment on above: Performed By: #### P ILLAR TSH, PILLAR LIPID, PILLAR CBC, PILLAR BMP #### [facility] [address] Employee Thyroid Stim [employer]orm[employer] gokul 04-06-2024 Employee Thyroid Stim Hormone 2.72 u[iU]/mL Normal 0.45-5.33 [facility] Comment on above: Result Comment: PERF ORMED BY: [place] [address] PATHOLOGIST [employer] JORDI SMITH M.D. Performed By: #### P ILLAR TSH, PILLAR LIPID, PILLAR CBC, PILLAR BMP #### [address] Eosinophils Auto (Bld) [#/Vo l]Ordered By: Addi Ortega on 04-06-2024 Eosinophils (Bld) [#/Vol] Automated eosinophil count 0.0-0.45 [facility] Eosinophils/100 WBC Auto (Bl d)Ordered By: Addi Ortega on 04-06-2024 Eosinophils/100 WBC (Bld) Automated eosinophil % . [facility] Erythrocyte distribution wid th Auto (RBC) [Ratio]Ordered By: Addi Ortega on 04-06-2024 Erythrocyte distribution width (RBC) [Ratio] Erythrocyte distribution width [Ratio] by Automated count 11.9-15.3 [facility] Erythrocyte distribution wid th [Ratio] by Automated countOrdered By: Addi Ortega on 04-06-2024 Erythrocyte distribution width (RBC) [Ratio] 12.7 % Normal 11.9-15.3 [facility] Comment on above: Performed By: #### P ILLAR TSH, PILLAR LIPID, PILLAR CBC, PILLAR BMP #### [facility] [address] [place] [address] [place] Erythrocytes [#/volume] in B lood by Automated countOrdered By: Addi Ortega on 04-06-2024 RBC (Bld) [#/Vol] 4.04 10*6/uL Normal 3.60-5.00 [facility] Comment on above: Performed By: #### P ILLAR TSH, PILLAR LIPID, PILLAR CBC, PILLAR BMP #### [facility] [address] [place] [id number] [place] Glucose [Mass/volume] in Ser um or PlasmaOrdered By: Addi Ortega on 04-06-2024 Glucose [Mass/Vol] 82 mg/dL Normal 70-100 [facility] Comment on above: Performed By: #### P ILLAR TSH, PILLAR LIPID, PILLAR CBC, PILLAR BMP #### [facility] [address] [place] [address] [place] Glucose [Mass/Vol] Glucose [Mass/volume ] in Serum or Plasma 70-100 [facility] Hematocrit Auto (Bld) [Volum e fraction]Ordered By: Addi Ortega on 04-06-2024 Hematocrit (Bld) [Volume fraction] Hematocrit [Volume Fraction] of Blood by Automated count 34.0-46.4 [facility] Hematocrit [Volume Fraction] of Blood by Automated countOrdered By: Addi Ortega on 04-06-2024 Hematocrit (Bld) [Volume fraction] 37.6 % Normal 34.0-46.4 [facility] Comment on above: Performed By: #### P ILLAR TSH, PILLAR LIPID, PILLAR CBC, PILLAR BMP #### [facility] [address] Hemoglobin [Mass/volume] in BloodOrdered By: Addi Ortega on 04-06-2024 Hemoglobin (Bld) [Mass/Vol] 13.3 g/dL Normal 11.8-15.4 [facility] Comment on above: Performed By: #### P ILLAR TSH, PILLAR LIPID, PILLAR CBC, PILLAR BMP #### [address] Hemoglobin (Bld) [Mass/Vol] Hemoglobin [Mass/volume] in Blood 11.8-15.4 [facility] Leukocytes [#/volume] correc hamilton for nucleated erythrocytes in Blood by Automated counOrdered By: Addi Ortega on 04-06-2024 WBC corrected for nucl RBC Auto (Bld) [#/Vol] 8.9 10*3/uL 3.8-11.6 [facility] WBC corrected for nucl RBC Auto (Bld) [#/Vol] Leukocytes [#/volume] corrected for nucleated erythrocytes in Blood by Automated coun 3.8-11.6 [facility] Leukocytes [#/volume] in Blo od by Automated countOrdered By: Addi Ortega on 04-06-2024 WBC (Bld) [#/Vol] 8.9 10*3/uL Normal 3.8-11.6 [facility] Comment on above: Performed By: #### P ILLAR TSH, PILLAR LIPID, PILLAR CBC, PILLAR BMP #### [place] [address] [place] Lymphocytes Auto (Bld) [#/Vo l]Ordered By: Addi Ortega on 04-06-2024 Lymphocytes (Bld) [#/Vol] Lymphocytes [#/volume] in Blood by Automated count 1.00-4.8 [facility] Lymphocytes [#/volume] in Bl ood by Automated countOrdered By: Addi Ortega on 04-06-2024 Lymphocytes (Bld) [#/Vol] 2.5 10*3/uL Normal 1.00-4.8 [facility] Comment on above: Performed By: #### P ILLAR TSH, PILLAR LIPID, PILLAR CBC, PILLAR BMP #### [facility] [address] Lymphocytes/100 WBC Auto (Bl d)Ordered By: Addi Ortega on 04-06-2024 Lymphocytes/100 WBC (Bld) Lymphocytes/100 leukocytes in Blood by Automated count . [facility] Lymphocytes/100 leukocytes i n Blood by Automated countOrdered By: Addi Ortega on 04-06-2024 Lymphocytes/100 WBC (Bld) 28.8 % Normal . [facility] Comment on above: Performed By: #### P ILLAR TSH, PILLAR LIPID, PILLAR CBC, PILLAR BMP #### [facility] [address] MCH Auto (RBC) [Entitic mass ]Ordered By: Addi Ortega on 04-06-2024 MCH (RBC) [Entitic mass] MCH [Entitic mass] by Automated count 24.7-34.3 [facility] MCH [Entitic mass] by Automa hamilton countOrdered By: Addi Ortega on 04-06-2024 MCH (RBC) [Entitic mass] 32.9 pg Normal 24.7-34.3 [facility] Comment on above: Performed By: #### P ILLAR TSH, PILLAR LIPID, PILLAR CBC, PILLAR BMP #### [facility] [address] [place] [address] MCHC Auto (RBC) [Mass/Vol]Or dered By: Addi Ortega on 04-06-2024 MCHC (RBC) [Mass/Vol] 35.4 g/dL High 32.0-35.0 [facility] MCHC (RBC) [Mass/Vol] MCHC [Mass/volume] by Automated count High 32.0-35.0 [facility] MCV Auto (RBC) [Entitic vol] Ordered By: Addi Ortega on 04-06-2024 MCV (RBC) [Entitic vol] MCV [Entitic volume] by Automated count 80-100 [facility] MCV [Entitic volume] by Auto mated countOrdered By: Addi Ortega on 04-06-2024 MCV (RBC) [Entitic vol] 93.2 fL Normal 80-100 [facility] Comment on above: Performed By: #### P ILLAR TSH, PILLAR LIPID, PILLAR CBC, PILLAR BMP #### [facility] [address] [place] [address] [place] Monocytes Auto (Bld) [#/Vol] Ordered By: Addi Ortega on 04-06-2024 Monocytes (Bld) [#/Vol] Automated blood monocyte count 0.0-0.8 [facility] Monocytes/100 WBC Auto (Bld) Ordered By: Addi Ortega on 04-06-2024 Monocytes/100 WBC (Bld) Automated monocyte % . [facility] Neutrophils Auto (Bld) [#/Vo l]Ordered By: Addi Ortega on 04-06-2024 Neutrophils (Bld) [#/Vol] Neutrophils [#/volume] in Blood by Automated count 1.8-7.7 [facility] Neutrophils [#/volume] in Bl ood by Automated countOrdered By: Addi Ortega on 04-06-2024 Neutrophils (Bld) [#/Vol] 5.8 10*3/uL Normal 1.8-7.7 [facility] Comment on above: Performed By: #### P ILLAR TSH, PILLAR LIPID, PILLAR CBC, PILLAR BMP #### [facility] [address] [place] [address] [place] Neutrophils/100 WBC Auto (Bl d)Ordered By: Addi Ortega on 04-06-2024 Neutrophils/100 WBC (Bld) Automated neutrophil % . [facility] No Panel InformationOrdered By: Addi Ortega on 04-06-2024 Estimated GFR (CKD-EPI) > 60.0 mL/Min [facility] Creatinine Clearance (Chem N/A [facility] Nucleated erythrocytes [Pres ence] in Blood by Automated countOrdered By: Addi Ortega on 04-06-2024 Nucleated RBC Auto Ql (Bld) 0.0 /100{WBC} 0-0.5 [facility] Nucleated RBC Auto Ql (Bld) Nucleated erythrocytes [Presence] in Blood by Automated count 0-0.5 [facility] Platelet mean volume Auto (B ld) [Entitic vol]Ordered By: Addi Ortega on 04-06-2024 Platelet mean volume (Bld) [Entitic vol] Platelet mean volume [Entitic volume] in Blood by Automated count 6.3-10.7 [facility] Platelet mean volume [Entiti c volume] in Blood by Automated countOrdered By: Addi Ortega on 04-06-2024 Platelet mean volume (Bld) [Entitic vol] 8.8 fL Normal 6.3-10.7 [facility] Comment on above: Performed By: #### P ILLAR TSH, PILLAR LIPID, PILLAR CBC, PILLAR BMP #### [facility] [address] Platelets Auto (Bld) [#/Vol] Ordered By: Addi Ortega on 04-06-2024 Platelets (Bld) [#/Vol] Platelets [#/volume] in Blood by Automated count 150-450 [facility] Platelets [#/volume] in Bloo d by Automated countOrdered By: Addi Ortega on 04-06-2024 Platelets (Bld) [#/Vol] 274 10*3/uL Normal 150-450 [facility] Comment on above: Performed By: #### P ILLAR TSH, PILLAR LIPID, PILLAR CBC, PILLAR BMP #### [facility] [address] Potassium [Moles/volume] in Serum or PlasmaOrdered By: Addi Ortega on 04-06-2024 Potassium [Moles/Vol] 4.0 mmol/L Normal 3.5-5.1 [facility] Comment on above: Performed By: #### P ILLAR TSH, PILLAR LIPID, PILLAR CBC, PILLAR BMP #### [address] Potassium [Moles/Vol] Potassium [Moles/v olume] in Serum or Plasma 3.5-5.1 [facility] RBC Auto (Bld) [#/Vol]Ordere d By: Addi Ortega on 04-06-2024 RBC (Bld) [#/Vol] Erythrocytes [#/volu me] in Blood by Automated count 3.60-5.00 [facility] Serum or plasma anion gap de terminationOrdered By: Addi Ortega on 04-06-2024 Anion gap [Moles/Vol] 11.0 mmol/L Normal 6.0-15.0 [facility] Comment on above: Performed By: #### P ILLAR TSH, PILLAR LIPID, PILLAR CBC, PILLAR BMP #### [address] Anion gap [Moles/Vol] Serum or plasma an ion gap determination 6.0-15.0 [facility] Serum or plasma high density lipoprotein (HDL) cholesterol measurementOrdered By: Addi Ortega on 04-06-2024 Cholesterol in HDL [Mass/Vol] 48 mg/dL Normal 23-92 [facility] Comment on above: HDL CHOL ATP-III CLA SSIFICATION Cardiovascular RiskHDL > or equal to 60 mg/dL LOWHDL < 40 mg/dL HIGH Result Comment: HDL CHOL ATP-III CLASSIFICATION Cardiovascular Risk HDL > or equal to 60 mg/dL LOW HDL < 40 mg/dL HIGH Performed By: #### P ILLAR TSH, PILLAR LIPID, PILLAR CBC, PILLAR BMP #### [address] Serum or plasma total choles terol/high density lipoprotein (HDL) cholesterol mass ratOrdered By: Addi Ortega on 04-06-2024 Cholesterol.total/Cho lesterol in HDL [Mass ratio] 3.3 {ratio} Normal <5.0 [facility] Comment on above: Performed By: #### P ILLAR TSH, PILLAR LIPID, PILLAR CBC, PILLAR BMP #### [address] Cholesterol.total/Cho lesterol in HDL [Mass ratio] Serum or plasma total cholesterol/high density lipoprotein (HDL) cholesterol mass rat <5.0 [facility] Sodium [Moles/volume] in Ser um or PlasmaOrdered By: Addi Ortega on 04-06-2024 Sodium [Moles/Vol] 135 mmol/L Low 136-145 [facility] Comment on above: Performed By: #### P ILLAR TSH, PILLAR LIPID, PILLAR CBC, PILLAR BMP #### [address] Sodium [Moles/Vol] Sodium [Moles/volume ] in Serum or Plasma Low 136-145 [facility] Thyrotropin [Units/volume] i n Serum or PlasmaOrdered By: Addi Ortega on 04-06-2024 TSH Qn 2.72 m[IU]/L 0.45-5.33 [facility] TSH Qn Thyrotropin [Units/v olume] in Serum or Plasma 0.45-5.33 [facility] Triglyceride [Mass/volume] i n Serum or PlasmaOrdered By: Addi Ortega on 04-06-2024 Triglyceride [Mass/Vol] 79 mg/dL 0-149 [facility] Comment on above: TRIG ATP III CLASSIF ICATIONTRIG less than 150 mg/dL NormalTRIG 150-199 mg/dL Borderline highTRIG 200-500 mg/dL High TRIG greater than 500 mg/dL Very highStandard traceable to the Center for Disease Conrtrol and Prevention (CDC) test method. Triglyceride [Mass/Vol] Triglyceride [Mass/volume] in Serum or Plasma 0-149 [facility] Comment on above: TRIG ATP III CLASSIF ICATIONTRIG less than 150 mg/dL NormalTRIG 150-199 mg/dL Borderline highTRIG 200-500 mg/dL High TRIG greater than 500 mg/dL Very highStandard traceable to the Center for Disease Conrtrol and Prevention (CDC) test method. Urea nitrogen [Mass/volume] in Serum or PlasmaOrdered By: Addi Ortega on 04-06-2024 Urea nitrogen [Mass/Vol] 7 mg/dL Normal 7-25 [facility] Comment on above: Performed By: #### P ILLAR TSH, PILLAR LIPID, PILLAR CBC, PILLAR BMP #### [facility] [address] Urea nitrogen [Mass/Vol] Urea nitrogen [Mass/volume] in Serum or Plasma 03-09 [facility] WBC Auto (Bld) [#/Vol]Ordere d By: Addi Ortega on 04-06-2024 WBC (Bld) [#/Vol] Leukocytes [#/volume ] in Blood by Automated count 3.8-11.6 [facility] ED Note-Physicianon 03-20-20 ED Note-Physician ED [...] and Complexity of Problems Differential Diagnosis: [] [facility] Data External documents reviewed: [] My [...] with the patient. 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 Discussed return precautions. [...] Nath In 3 days 03/21/2024 EDT [address] [place] [address]- Business (1) Additional Instructions: DARWIN JONES In 3 days [address] [place] [address] [place] [address] [phone] Business (1) Additional Instructions: Patient Education Threatened Miscarriage Subchorionic Hematoma Attestation Patient seen and evaluated by the physician produce assistant. Attending physician was present in the emergency department and supervised care. This visit was performed by both the physician and an APC. I performed all aspects of the MDM as documented. This report was transcribed using voice recognition software. Every effort was made to ensure accuracy, however, inadvertently computerized information security consultant mistakes may be present. Appropriate healthc (more content not included)... Normal [facility] Comment on above: Result Comment: Elec tronically Signed By: Hector Correa PA-C\.br\Date and Time Signed: 03/18/24 12:11 EDT\.br\Electronically Co-Signed By: Toan [place] DO\.br\Date and Time Co-Signed: 03/20/24 07:17 EDT ABO/Rhon 03-18-2024 ABO/Rh Negative Invalid Interpretation Code [facility] Comment on above: Performed By: #### [id number] #### [facility] [address] [place] [address] BLOOD BANKOrdered By: Nikky Brennan on 03-18-2024 ABO/Rh Interp Negative Invalid Interpretation Code [facility] Subsection BMPon 03-18-2024 Anion gap [Moles/Vol] 12 mmol/L Normal 6-16 [facility] Comment on above: Performed By: #### [id number] #### [facility] [address] [place] [address] Calcium [Mass/Vol] 9.2 mg/dL Normal [facility]1 [facility] Comment on above: Performed By: #### 2 [id number] #### [facility] [address] [place] [address] Chloride [Moles/Vol] 105 mmol/L Normal 101-111 [facility] Comment on above: Performed By: #### 2 [id number] #### [facility] [address] [place] [address] CO2 [Moles/Vol] 23 mmol/L Normal 21-31 [facility] Comment on above: Performed By: #### 2 [id number] #### [facility] [address] [place] [address] Creatinine [Mass/Vol] 0.5 mg/dL Normal 0.5-1.3 [facility] Comment on above: Performed By: #### 2 [id number] #### [facility] [address] [place] [address] Glucose [Mass/Vol] 92 mg/dL Normal 55-199 [facility] Comment on above: Performed By: #### 2 278286 #### [facility] [address] [place] [address] Potassium [Moles/Vol] 3.8 mmol/L Normal 3.5-5.3 [facility] Comment on above: Performed By: #### 2 059180 #### [facility] [address] [place] [address] Sodium [Moles/Vol] 136 mmol/L Normal 135-145 [facility] Comment on above: Performed By: #### 2 827605 #### [facility] [address] [place] [address] Urea nitrogen [Mass/Vol] 9 mg/dL Normal 5-21 [facility] Comment on above: Performed By: #### 2 800894 #### [facility] [address] [place] [address] Urea nitrogen/Creatinine [Mass ratio] 18 No Units Normal 10-20 [facility] Comment on above: Performed By: #### 2 [id number] #### [facility] [address] [place] [address] [facility] Quanton 03-18-2024 [place] [address] m[IU]/mL High 1-3 F [facility] Comment on above: Result Comment: 'F N ON < 1 - 3' ' 0.2 - 1 WEEK = 5 TO 50' ' 1 - 2 WEEKS = 50 - 500' ' 2 - 3 WEEKS = 100 - 5000' ' 3 - 4 WEEKS = 500 - 49664' ' 4 - 5 WEEKS = 1000 - 79016' ' 5 - 6 WEEKS = 05706 - 013628' ' 6 - 8 WEEKS = 28232 - 020547' ' 8 - 12 WEEKS = 90985 - 620466' Performed By: #### 2 [id number] #### [facility] [address] [place] [address] CBC w/ Auto Diffon Basophils/100 WBC (Bld) 0.6 % Normal 0.0-2.0 [facility] Comment on above: Performed By: #### 2 [id number] #### [facility] [address] [place] [address] Basophils/Leukocytes Auto (Bld) [Pure # fraction] 0.0 E9/L Normal 0.0-0.2 [facility] Comment on above: Performed By: #### 2 488392 #### [facility] [address] [place] [address] Eosinophils (Bld) [#/Vol] 0.0 E9/L Normal 0.0-0.5 [facility] Comment on above: Performed By: #### 2 036368 #### [facility] [address] [place] [address] Eosinophils/100 WBC (Bld) 0.5 % Normal 0.0-8.0 [facility] Comment on above: Performed By: #### 2 587301 #### [facility] [address] [place] [address] Erythrocyte distribution width (RBC) [Ratio] 12.5 % Normal 10.9-14.2 [facility] Comment on above: Performed By: #### 2 028247 #### [facility] [address] [place] [address] Hematocrit (Bld) [Volume fraction] 40.2 % Normal 34.0-46.0 [facility] Comment on above: Performed By: #### 2 990239 #### [facility] [address] [place] [address] Hemoglobin (Bld) [Mass/Vol] 13.8 g/dL Normal 12.0-16.0 [facility] Comment on above: Performed By: #### 2 300829 #### [facility] [address] [place] [address] Lymphocytes (Bld) [#/Vol] 2.4 E9/L Normal 1.0-4.0 [facility] Comment on above: Performed By: #### 2 304760 #### [facility] [address] [place] [address] Lymphocytes/100 WBC (Bld) 28.4 % Normal 14.0-50.0 [facility] Comment on above: Performed By: #### 2 773906 #### [facility] [address] [place] [address] MCH (RBC) [Entitic mass] 32.3 pg Normal 27.0-34.0 [facility] Comment on above: Performed By: #### 2 742781 #### [facility] [address] [place] [address] MCHC (RBC) [Mass/Vol] 34.3 g/dL Normal 31.4-36.0 [facility] Comment on above: Performed By: #### 2 136396 #### [facility] [address] [place] [address] MCV (RBC) [Entitic vol] 94.2 fL Normal 80.0-100.0 [facility] Comment on above: Performed By: #### 2 356233 #### [facility] [address] [place] [address] Monocytes (Bld) [#/Vol] 0.4 E9/L Normal 0.2-1.0 [facility] Comment on above: Performed By: #### 2 865318 #### [facility] [address] [place] [address] Neutrophils (Bld) [#/Vol] 5.4 E9/L Normal 2.0-7.5 [facility] Comment on above: Performed By: #### 2 651194 #### [facility] [address] [place] [address] Neutrophils/100 WBC (Bld) 65.4 % Normal 36.0-75.0 [facility] Comment on above: Performed By: #### 2 989023 #### [facility] [address] [place] [address] Platelet mean volume (Bld) [Entitic vol] 8.5 fL Normal 6.4-10.8 [facility] Comment on above: Performed By: #### 2 355630 #### [facility] [address] [place] [address] Platelets (Bld) [#/Vol] 249.0 E9/L Normal 150.0-500. 0 [facility] Comment on above: Performed By: #### 2 306328 #### [facility] [address] [place] [address] RBC (Bld) [#/Vol] 4.3 E12/L Normal 4.3-5.9 [facility] Comment on above: Performed By: #### 2 295692 #### [facility] [address] [place] [address] WBC corrected for nucl RBC Auto (Bld) [#/Vol] 8.3 E9/L Normal 4.0-11.0 [facility] Comment on above: Performed By: #### 2 896198 #### [facility] [address] [place] [address] CHEMISTRYOrdered By: SYSTEM SYSTEM on 03-18-2024 Anion [...] 199 mg/[place] [address] m[IU]/mL High 1 - 3 mIU/mL [facility] Comment on above: Result Comment: 'F N ON < 1 - 3' ' 0.2 - 1 WEEK = 5 TO 50' ' 1 - 2 WEEKS = 50 - 500' ' 2 - 3 WEEKS = 100 - 5000' ' 3 - 4 WEEKS = 500 - 85858' ' 4 - 5 WEEKS = 1000 - 61490' ' 5 - 6 WEEKS = 70160 - 354308' ' 6 - 8 WEEKS = 72219 - 827534' ' 8 - 12 WEEKS = 92863 - 802200' Potassium [Moles/Vol] 3.8 mmol/L Normal 3.5 - 5.3 mmol/L [facility] Sodium [Moles/Vol] 136 mmol/L Normal 135 - 145 mmol/L [facility] Urea nitrogen [Mass/Vol] 9 mg/dL Normal 5 - 21 mg/dL [facility] Urea nitrogen/Creatinine [Mass ratio] 18 mg/mg Normal 10 - 20 [facility] ED Clinical Summaryon 2023 ED Clinical Summary ED Clinical Summary [place] [id number] ED Clinical Summary Person Information Name: TAWNYA HERRING Deysi/[facility] Age: 28 Years : 1995 Sex: Female Language: Northern Irish PCP: DARWIN JONES CNP Marital Status: Single Phone: [phone] Visit Id: Visit Reason: Vaginal bleeding - [...] 03/18/2024 12:15:02 03/18/2024 12:15:02 03/18/2024 12:15:02 ADDRESS: [address] [place] [phone] PHYS DOC NOTES: MEDICAL INFORMATION: Prescriptions Given: Medications to Continue with No Changes Other Medications citalopram (CeleXA 20 mg Tab) 1 Tablets By Mouth every day. PATIENT EDUCATION INFORMATION: Instructions: Threatened Miscarriage; Subchorionic Hematoma Follow up: With: Address: When: Rogelio Nath [address] [place] [address], [place] [address] Business (1) In 3 days 03/21/2024 With: Address: When: [place] [address] [facility] [place] [phone] Business (1) In 3 days DIAGNOSIS: Subchorionic bleed; Threatened Normal [facility] ED Patient Summaryon 08-03-2 024 ED Patient Summary ED Patient Summary [address] [address] Patient Discharge Instructions Person Information Name: TAWNYA HERRING Age: 28 Years Arrival Date: 03/18/2024 08:06:19 Discharge Diagnosis: Subchorionic bleed; Threatened Primary Care Physician: DARWIN JONES CNP Provider Information Primary Provider: Toan [place] DO Advanced Pageant Director:None The exam and treatment you received in the Emergency Department were for an urgent problem and are not intended as complete care. It is important that you follow up with a doctor, nurse practitioner, or physician?s produce assistant for ongoing care. If your symptoms [...] Follow-up Instructions: With: Address: When: Rogelio Nath [address] [place] [address], [address] [address] Business (1) In 3 days 03/21/2024 With: Address: When: DARWIN JONES [address] [place] [phone] [facility] (1) In 3 days In the event that this physician does not participate in your insurance network, please consult with your insurance company to find a nearby participating provider. Patient Education Materials: Threatened Miscarriage; Subchorionic Hematoma A MESSAGE TO ALL PATIENTS REGARDING OPIOIDS PRESCRIPTION OPIOIDS: WHAT YOU NEED TO KNOW Prescription opioids can be used to help relieve icmsrpur-hs-hixhhc pain and are often prescribed following a [...] you be (more content not included)... Normal [facility] HEMATOLOGYOrdered By: SYSTEM SYSTEM on [...] 24 Bilirubin Ql (U) Negative Normal Negative [facility] Comment on above: Performed By: #### 4 [id number] #### [facility] [address] [place] [address] Clarity (U) Clear Normal Clear [facility] Comment on above: Performed By: #### 4 [id number] #### [facility] [address] [place] [id number] Color (U) Yellow Normal Yellow [facility] Comment on above: Result Comment: Micr oscopic readings are only performed on those samples that meet specific criteria set forth by [facility]. Performed By: #### 4 [id number] #### [facility] [address] [place] [address] Epithelial cells.squamous Auto (Urine sed) [#/Area] 0-2 Invalid Interpretation Code [facility] Comment on above: Performed By: #### 4 [id number] #### [facility] [address] [place] [address] Glucose Ql (U) Negative Normal Negative [facility] Comment on above: Performed By: #### 4 [id number] #### [facility] [address] [place] [address] Hemoglobin Auto test strip (U) [Mass/Vol] 3+ mg/dL Abnormal Negative [facility] Comment on above: Performed By: #### 4 [id number] #### [facility] [address] [place] [address] Ketones Auto test strip Ql (U) Negative Normal Negative [facility] Comment on above: Performed By: #### 4 [id number] #### [facility] [address] [place] [address] Leukocyte esterase Auto test strip Ql (U) 25 Chaparrita/uL Normal Negative [facility] Comment on above: Performed By: #### 4 [id number] #### [facility] [address] [place] [address] Mucus Auto Ql (U) Trace Normal Negative [facility] Comment on above: Performed By: #### 4 [id number] #### [facility] [address] [place] [address] Nitrite Auto test strip Ql (U) Negative Normal Negative [facility] Comment on above: Performed By: #### 4 [id number] #### [facility] [address] [place] [address] pH (U) 7.5 [pH] Invalid Interpretation Code 5.0-9.0 [facility] Comment on above: Performed By: #### 4 [id number] #### [facility] [address] [place] [address] Protein Ql (U) Trace Abnormal Negative [facility] Comment on above: Performed By: #### 4 [id number] #### [facility] [address] [place] [address] RBC Ql (U) 31-75 Abnormal 0-3 [facility] Comment on above: Performed By: #### 4 [id number] #### [facility] [address] [place] [address] Specific gravity (U) [Rel density] 1.023 Invalid Interpretation Code 1.005-1.03 0 [facility] Comment on above: Performed By: #### 4 [id number] #### [facility] [address] [place] [address] Urobilinogen (U) [Mass/Vol] Negative Normal Negative [facility] Comment on above: Performed By: #### 4 [id number] #### [facility] [address] [place] [address] WBC Auto (Urine sed) [#/Area] 0-5 Normal 0-5 [facility] Comment on above: Performed By: #### 4 [id number] #### [facility] [address] [place] [address] Type of Urine collection method Clean Catch Normal [facility] Comment on above: Performed By: #### 4 [id number] #### [facility] [address] [place] [address] URINALYSISOrdered By: SYSTEM SYSTEM on 03-18-2024 Bilirubin Ql (U) Negative Normal Negativemg /dL [facility] UA Auto SS Clarity (U) Clear (03/18/24 8:17 AM) Normal Clear [facility] UA Auto SS Color (U) Yellow 1 (03/18/24 8:17 AM) Normal Yellow [facility] UA Auto SS Comment on above: Interpretive Data: M icroscopic readings are only performed on those samples that meet specific criteria set forth by [facility]. Epithelial cells.squamous Auto (Urine [...] AM) Invalid Interpretation Code 1.005 - 1.030 [facility] UA Auto SS Urobilinogen (U) [Mass/Vol] Negative Normal Negativemg /dL [facility] UA Auto SS WBC Auto (Urine sed) [#/Area] 0-5 graded/HPF Normal 0-5graded/ HPF [facility] UA Auto SS URINALYSISOrdered By: Hector quiroga on 03-18-2024 UA Spec Desc Clean Catch (03/18/24 8:17 AM) Normal [facility] UA Auto SS US 1st Trimesteron 03-18-2024 [...] intrauterine , with heart rate 125 bpm. Fulford-rump length 3.22 mm. Mean sac diameter 1.74 [...] Transabdominal Ultrasound Performed Transvaginal Ultrasound Performed Normal [facility] US Transvaginalon 03-18-2024 US Transvaginal Exam Date/Time: 03/18/2024 11:41 EDT Reason for Exam: Vaginal bleeding Report Please review ultrasound pelvis for ultrasound transvaginal report. Ordering Provider: Hector Correa FINAL REPORT Dictated: 03/18/2024 12:06 pm Luis Alfredo Bunch MD Signed (Electronic Signature): 03/18/2024 12:06 pm Signed by: Luis Alfredo Bunch MD Transcribed by: EDWIN Technologist: MARCOS [facility] eGFRon 03-18-2024 eGFR 131 mL/min/1.73 m2 Normal >=59 [facility] Comment on above: Order Comment: Order added by Discern Expert. Performed By: #### 1 [id number] #### [facility] [address] [place] [address] Progesteroneon 02-24-2024 Progesterone 9.9 ng/mL Normal . [facility] Comment on above: Result Comment: Foll icular phase 0.1 - 0.9 Luteal phase 1.8 - 23.9 Ovulation phase 0.1 - 12.0 First trimester 11.0 - 44.3 Second trimester 25.4 - 83.3 Third trimester 58.7 - 214.0 Postmenopausal 0.0 - 0.1 Performed at: [facility] [employer] [id number] Ebay Reseller: Alexis Ashton PhD, Phone: [phone] PERFORMED BY: [facility] [address] [place] [address] PATHOLOGIST BAKESHOP CLEANER JORDI SMITH M.D. Performed By: #### P ANTHONY ####[facility] , Serum or plasma progesterone measurement (mass/volume)Ordered By: Brain Way on 02-24-2024 Progesterone [Mass/Vol] 9.9 ng/mL . [facility] Comment on above: Follicular phase 0.1 - 0.9 Luteal phase 1.8 - 23.9 Ovulation phase 0.1 - 12.0 First trimester 11.0 - 44.3 Second trimester 25.4 - 83.3 Third trimester 58.7 - 214.0 Postmenopausal 0.0 - 0.1Performed at: [employer] [address] [id number] Director: Alexis Ashton PhD, Phone: [phone] Progesteroneon 01-24-2024 Progesterone 8.5 ng/mL Normal . [facility] Comment on above: Result Comment: Foll icular phase 0.1 - 0.9 Luteal phase 1.8 - 23.9 Ovulation phase 0.1 - 12.0 First trimester 11.0 - 44.3 Second trimester 25.4 - 83.3 Third trimester 58.7 - 214.0 Postmenopausal 0.0 - 0.1 Performed at: [facility] [id number] Ebay Reseller: Alexis Ashton PhD, Phone: [phone] PERFORMED BY: [facility] [place] [address] PATHOLOGIST BAKESHOP CLEANER JORDI SMITH M.D. Performed By: #### P ANTHONY ####[facility] , Serum or plasma progesterone measurement (mass/volume)Ordered By: Brain Way on 01-24-2024 Progesterone [Mass/Vol] 8.5 ng/mL . [facility] Comment on above: Follicular phase 0.1 - 0.9 Luteal phase 1.8 - 23.9 Ovulation phase 0.1 - 12.0 First trimester 11.0 - 44.3 Second trimester 25.4 - 83.3 Third trimester 58.7 - 214.0 Postmenopausal 0.0 - 0.1Performed at: [facility] [place] [id number] Director: Alexis Ashton PhD, Phone: [phone] Progesteroneon 12-27-2023 Progesterone 13.3 ng/mL Normal . [facility] Comment on above: Result Comment: Foll icular phase 0.1 - 0.9 Luteal phase 1.8 - 23.9 Ovulation phase 0.1 - 12.0 First trimester 11.0 - 44.3 Second trimester 25.4 - 83.3 Third trimester 58.7 - 214.0 Postmenopausal 0.0 - 0.1 Performed at: [facility] [address] [place] [id number] Ebay Reseller: Alexis Ashton PhD, Phone: [phone] PERFORMED BY: [facility] [address] [place] [address] PATHOLOGIST BAKESHOP CLEANER JORDI SMITH M.D. Performed By: #### P ANTHONY ####[facility] , Serum or plasma progesterone measurement (mass/volume)Ordered By: Brain Way on 12-27-2023 Progesterone [Mass/Vol] 13.3 ng/mL . [facility] Comment on above: Follicular phase 0.1 - 0.9 Luteal phase 1.8 - 23.9 Ovulation phase 0.1 - 12.0 First trimester 11.0 - 44.3 Second trimester 25.4 - 83.3 Third trimester 58.7 - 214.0 Postmenopausal 0.0 - 0.1Performed at: [facility] [id number] Director: Alexis Ashton PhD, Phone: [phone] Progesteroneon 11-30-2023 Progesterone 16.9 ng/mL Normal . [facility] Comment on above: Result Comment: Foll icular phase 0.1 - 0.9 Luteal phase 1.8 - 23.9 Ovulation phase 0.1 - 12.0 First trimester 11.0 - 44.3 Second trimester 25.4 - 83.3 Third trimester 58.7 - 214.0 Postmenopausal 0.0 - 0.1 Performed at: [facility] [employer] [id number] Ebay Reseller: Alexis Ashton PhD, Phone: [phone] PERFORMED BY: [facility] [address] [place] [address] PATHOLOGIST BAKESHOP CLEANER JORDI SMITH M.D. Performed By: #### P ANTHONY ####[facility] , Serum or plasma progesterone measurement (mass/volume)Ordered By: Brain Way on 11-30-2023 Progesterone [Mass/Vol] 16.9 ng/mL . [facility] Comment on above: Follicular phase 0.1 - 0.9 Luteal phase 1.8 - 23.9 Ovulation phase 0.1 - 12.0 First trimester 11.0 - 44.3 Second trimester 25.4 - 83.3 Third trimester 58.7 - 214.0 Postmenopausal 0.0 - 0.1Performed at: CB - [facility] [id number] [place], [place] [id number] Director: Alexis Ashton PhD, Phone: [phone] Teresa 11-18-2023 CNOV Office Visit (ENDOMN ) -- TAWNYA HERRING ([id number]) 1995 F Date Time Provider Department 11/18/23 8:30 AM [facility] ENDOMN During your visit today, we recorded the following information about you: Pulse Blood pressure Weight Last Period 100/minute 132/92 110.7 kg 11/09/23 Odalis Greene 11/18/2023 7:58 AM Signed Thank you for choosing the [facility] Department of Endocrinology, Diabetes and Metabolism. Did you know that you need to call 48 hours in advance of your scheduled visit, if you are unable to make your appointment? [facility] [place] thanks you for your commitment, because patients not showing to their appointment results in a lost opportunity for patients to receive [facility] health care at the [facility]. To Cancel an appointment, please choose one of the following: - Call the Appointment Call Center at [phone] - From [employer], Go to Appointments - Cancel Appts If cancelling, consider your need to reschedule to prevent further delays in your care. To Schedule an appointment, please choose one of the following: - Call the Appointment Call Center at [phone] - From [employer], Go to Appointments - Request an Appt [...] as of 11/18/2023 - cyanocobalamin/folic acid (VITAMIN Y74-QGPAB ACID) 1,000-400 mcg lozg Take by mouth (more content not included)... Normal [facility] Progesteroneon 11-01-2023 Progesterone 7.1 ng/mL Normal . [facility] Comment on above: Result Comment: Foll icular phase 0.1 - 0.9 Luteal phase 1.8 - 23.9 Ovulation phase 0.1 - 12.0 First trimester 11.0 - 44.3 Second trimester 25.4 - 83.3 Third trimester 58.7 - 214.0 Postmenopausal 0.0 - 0.1 Performed at: - [facility] [address] [id number] Ebay Reseller: Alexis Ashton PhD, Phone: [phone] PERFORMED BY: [place] [address] [place] [address] PATHOLOGIST BAKESHOP CLEANER JORDI SMITH M.D. Performed By: #### P ANTHONY ####[facility] , Serum or plasma progesterone measurement (mass/volume)Ordered By: Brain Way on 11-01-2023 Progesterone [Mass/Vol] 7.1 ng/mL . [facility] Comment on above: Follicular phase 0.1 - 0.9 Luteal phase 1.8 - 23.9 Ovulation phase 0.1 - 12.0 First trimester 11.0 - 44.3 Second trimester 25.4 - 83.3 Third trimester 58.7 - 214.0 Postmenopausal 0.0 - 0.1Performed at: [facility] [place] [address] [id number] Director: Alexis Ashton PhD, Phone: [phone] Serum or plasma progesterone measurement (mass/volume)Ordered By: Brain Way on 10-01-2023 Progesterone [Mass/Vol] 0.9 ng/mL . [facility] Comment on above: Follicular phase 0.1 - 0.9 Luteal phase 1.8 - 23.9 Ovulation phase 0.1 - 12.0 First trimester 11.0 - 44.3 Second trimester 25.4 - 83.3 Third trimester 58.7 - 214.0 Postmenopausal 0.0 - 0.1Performed at: [employer] [id number] [place], [place] [id number] Director: Alexis Ashton PhD, Phone: [phone] Ambulatory Visit Summaryon 0 09-29-2023 Ambulatory Visit [...] JONES CNP When: Where: [address] [facility] [place] [address]- Medications What How Much When Why Instructions New amoxicillin-clavulanate (Augmentin 875 mg oral tablet) 1 Tablets By Mouth Every 12 hours Sinusitis BMI 38.0-38.9,adult Duration: 10 Days Pickup at [facility] New methylPREDNISolone (Medrol Dosepack 4 mg Tab) 1 Packets By Mouth As Directed Sinusitis BMI 38.0-38.9,adult Duration: 6 Days as directed on package labeling Pickup at [facility] Unchanged citalopram (CeleXA 20 mg Tab) 1 Tablets By Mouth Every day Contact prescribing physician if questions or concerns Unchanged citalopram (citalopram 20 mg Tab) Contact prescribing physician if questions or concerns Unchanged pyridoxine (Vitamin B6 100 mg Tab) By Mouth Every day Contact prescribing physician if questions or concerns Pharmacy Information [facility]: [address] [place] [id number] [phone] Allergies No Known Allergies No Known Medication [...] for choosing us for your care. Normal [facility] Office/Clini c Noteon [...] with voice recognition software. Occasional wrong-word or ?qfoep-o-emxr? substitutions may have occurred due to the [...] with improvement. She does not use any anfy-yzb-cddjzwq Flonase and has not tried any other [...] day(s), # 20 tab(s), Refills(s) 0, Pharmacy: [facility], 170.2, cm, 09/29/23 10:44:00 EST, Height/Length Dosing, 112, kg, 09/29/23 10:44:00 EST, Weight Dosing methylPREDNISolone, = 1 packet(s), Oral, As Directed, as directed on package labeling, X 6 day(s), # 21 tab(s), Refills(s) 0, Pharmacy: [facility], 170.2, cm, 09/29/23 10:44:00 EST, Height/Length Dosing, 112, kg, 09/29/23 10:44:00 EST, Weight Dosing 2. BMI 38.0-38.9,adult (Z68.38: Body mass index [BMI] 38.0-38.9, adult) The standard range for ages 18 and olde (more content not included)... [facility] Comment on above: Result Comment: Elec tronically Signed By: Pranav BECKHAM, Tyrone Alexandra.br\Date and Time Signed: 09/29/23 11:05 EST Patient [...] ? Medicines that treat allergies (antihistamines). ? Jbua-oqw-hiopcqn pain relievers. ? If caused by bacteria, [...] home: Medicines ? Take, use, or apply zcth-cuz-xzysajs and prescription medicines only as told by [...] and water are not available, use hand bobbin inspector. ? Do not smoke. Avoid being around people who are smoking (secondhand smoke). ? Keep all follow-up visits. This is important. Contact a health care provider if: ? You have a fever. ? Your symptoms get (more content not included)... [facility] TAWNYA HERRING ([id number]) 1995 F Date Time Provider Department 07/16/23 RUBY WHITTINGTONAkilah During your visit today, we recorded the [...] Encounter Status:Closed by KENAN GOMEZ on 07/16/23 [facility] CNOVon 06-08-2023 CNOV Office Visit (OTOLLN ) -- TAWNYA HERRING ([id number]) 1995 F Date Time Provider Department 06/08/23 [...] will be in touch with results via [employer]circlet HPI: Tawnya is a 27 year old [...] Allergies (more content not included)... Normal [facility] Alanine aminotransferase [En zymatic activity/volume] in Serum or PlasmaOrdered By: Addi Ortega on 04-08-2023 ALT [Catalytic activity/Vol] 28 U/L 7-52 [facility] Albumin [Mass/volume] in Ser um or Plasma by Bromocresol green (BCG) dye binding methoOrdered By: Addi Ortega on 04-08-2023 Albumin BCG dye [Mass/Vol] 4.8 g/dL 3.5-5.7 [facility] Alkaline phosphatase [Enzyma tic activity/volume] in Serum or PlasmaOrdered By: Addi Ortega on 04-08-2023 ALP [Catalytic activity/Vol] 61 U/L 34-104 [facility] Aspartate aminotransferase [ Enzymatic activity/volume] in Serum or PlasmaOrdered By: Addi Ortega on 04-08-2023 AST [Catalytic activity/Vol] 13 U/L 13-39 [facility] Basophils Auto (Bld) [#/Vol] Ordered By: Addi Ortega on 04-08-2023 Basophils (Bld) [#/Vol] 0.0 10*3/uL 0.0-0.2 [facility] Basophils/100 WBC Auto (Bld) Ordered By: Addi Ortega on 04-08-2023 Basophils/100 WBC (Bld) 0.4 % . [facility] Bilirubin.total [Mass/volume ] in Serum or PlasmaOrdered By: Addi Ortega on 04-08-2023 Bilirubin [Mass/Vol] 0.4 mg/dL 0.3-1.0 [facility] Calcium [Mass/volume] in Ser um or PlasmaOrdered By: Addi Ortega on 04-08-2023 Calcium [Mass/Vol] 9.5 mg/dL 8.6-10.3 [facility] Carbon dioxide, total [Moles /volume] in Serum or PlasmaOrdered By: Addi Ortega on 04-08-2023 CO2 [Moles/Vol] 25.4 mmol/L 21.0-31.0 [facility] Chloride [Moles/volume] in S ghada or PlasmaOrdered By: Addi Ortega on 04-08-2023 Chloride [Moles/Vol] 106 mmol/L 98-107 [facility] Cholesterol [Mass/volume] in Serum or PlasmaOrdered By: Addi Ortega on 04-08-2023 Cholesterol [Mass/Vol] 162 mg/dL 140-200 [facility] Comment on above: Chol less than 200 m g/dl low riskChol 201-239 mg/dl borderline riskChol 240 mg/dl and greater high risk Cholesterol in LDL Calc [Mas s/Vol]Ordered By: Addi Ortega on 04-08-2023 Cholesterol in LDL [Mass/Vol] 99 mg/dL 0-100 [facility] Comment on above: LDL ATP III CLASSIFI CATIONLDL less than 100 mg/dL OptimalLDL 100-129 mg/dL Near or above optimalLDL 130-159 mg/dL Borderline highLDL 160-189 mg/dL HighLDL greater than 189 mg/dL Very high Cholesterol in VLDL Calc [Ma ss/Vol]Ordered By: Addi Ortega on 04-08-2023 Cholesterol in VLDL [Mass/Vol] 18 mg/dL [facility] Creatinine [Mass/volume] in Serum or PlasmaOrdered By: Addi Ortega on 04-08-2023 Creatinine [Mass/Vol] 0.59 mg/dL 0.60-1.20 [facility] Eosinophils Auto (Bld) [#/Vo l]Ordered By: Addi Ortega on 04-08-2023 Eosinophils (Bld) [#/Vol] 0.1 10*3/uL 0.0-0.45 [facility] Eosinophils/100 WBC Auto (Bl d)Ordered By: Addi Ortega on 04-08-2023 Eosinophils/100 WBC (Bld) 1.3 % . [facility] Erythrocyte distribution wid th Auto (RBC) [Ratio]Ordered By: Addi Ortega on 04-08-2023 Erythrocyte distribution width (RBC) [Ratio] 12.6 % 11.9-15.3 [facility] Globulin Calc (S) [Mass/Vol] Ordered By: Addi Ortega on 04-08-2023 Globulin (S) [Mass/Vol] 2.7 g/dL [facility] Glucose [Mass/volume] in Ser um or PlasmaOrdered By: Addi Ortega on 04-08-2023 Glucose [Mass/Vol] 83 mg/dL 70-100 [facility] Hematocrit Auto (Bld) [Volum e fraction]Ordered By: Addi Ortega on 04-08-2023 Hematocrit (Bld) [Volume fraction] 39.3 % 34.0-46.4 [facility] Hemoglobin [Mass/volume] in BloodOrdered By: Addi Ortega on 04-08-2023 Hemoglobin (Bld) [Mass/Vol] 13.6 g/dL 11.8-15.4 [facility] Leukocytes [#/volume] correc hamilton for nucleated erythrocytes in Blood by Automated counOrdered By: Addi Ortega on 04-08-2023 WBC corrected for nucl RBC Auto (Bld) [#/Vol] 7.6 10*3/uL 3.8-11.6 [facility] Lymphocytes Auto (Bld) [#/Vo l]Ordered By: Addi Ortega on 04-08-2023 Lymphocytes (Bld) [#/Vol] 2.9 10*3/uL 1.00-4.8 [facility] Lymphocytes/100 WBC Auto (Bl d)Ordered By: Addi Ortega on 04-08-2023 Lymphocytes/100 WBC (Bld) 38.6 % . [facility] MCH Auto (RBC) [Entitic mass ]Ordered By: Addi Ortega on 04-08-2023 MCH (RBC) [Entitic mass] 31.6 pg 24.7-34.3 [facility] MCHC Auto (RBC) [Mass/Vol]Or dered By: Addi Ortega on 04-08-2023 MCHC (RBC) [Mass/Vol] 34.5 g/dL 32.0-35.0 [facility] MCV Auto (RBC) [Entitic vol] Ordered By: Addi Ortega on 04-08-2023 MCV (RBC) [Entitic vol] 91.7 fL 80-100 [facility] Monocytes Auto (Bld) [#/Vol] Ordered By: Addi Ortega on 04-08-2023 Monocytes (Bld) [#/Vol] 0.4 10*3/uL 0.0-0.8 [facility] Monocytes/100 WBC Auto (Bld) Ordered By: Addi Ortega on 04-08-2023 Monocytes/100 WBC (Bld) 5.8 % . [facility] Neutrophils Auto (Bld) [#/Vo l]Ordered By: Addi Ortega on 04-08-2023 Neutrophils (Bld) [#/Vol] 4.1 10*3/uL 1.8-7.7 [facility] Neutrophils/100 WBC Auto (Bl d)Ordered By: Addi Ortega on 04-08-2023 Neutrophils/100 WBC (Bld) 53.9 % . [facility] No Panel InformationOrdered By: Addi Ortega on 04-08-2023 Estimated GFR (CKD-EPI) > 60.0 mL/Min [facility] Nicotine Metabolite Negative Cutoff=25 [facility] Comment on above: Performed at: [address], [place], [place] [id number] Director: Catherine Mendoza MD, Phone: [phone] Pharmacy Creatinine Clearance (Chem N/A [facility] Nucleated erythrocytes [Pres ence] in Blood by Automated countOrdered By: Addi Ortega on 04-08-2023 Nucleated RBC Auto Ql (Bld) 0.0 /100{WBC} 0-0.5 [facility] Platelet mean volume Auto (B ld) [Entitic vol]Ordered By: Addi Ortega on 04-08-2023 Platelet mean volume (Bld) [Entitic vol] 8.6 fL 6.3-10.7 [facility] Platelets Auto (Bld) [#/Vol] Ordered By: Addi Ortega on 04-08-2023 Platelets (Bld) [#/Vol] 361 10*3/uL 150-450 [facility] Potassium [Moles/volume] in Serum or PlasmaOrdered By: Addi Ortega on 04-08-2023 Potassium [Moles/Vol] 4.6 mmol/L 3.5-5.1 [facility] Protein [Mass/volume] in Ser um or PlasmaOrdered By: Addi Ortega on 04-08-2023 Protein [Mass/Vol] 7.5 g/dL 6.4-8.9 [facility] RBC Auto (Bld) [#/Vol]Ordere d By: Addi Ortega on 04-08-2023 RBC (Bld) [#/Vol] 4.29 10*6/uL 3.60-5.00 [facility] Serum or plasma albumin/glob ulin mass ratioOrdered By: Addi Ortega on 04-08-2023 Albumin/Globulin [Mass ratio] 1.8 {ratio} [facility] Serum or plasma anion gap de terminationOrdered By: Addi Ortega on 04-08-2023 Anion gap [Moles/Vol] 12.2 mmol/L 6.0-15.0 [facility] Serum or plasma high density lipoprotein (HDL) cholesterol measurementOrdered By: Addi Ortega on 04-08-2023 Cholesterol in HDL [Mass/Vol] 45 mg/dL 23-92 [facility] Comment on above: HDL CHOL ATP-III CLA SSIFICATION Cardiovascular RiskHDL > or equal to 60 mg/dL LOWHDL < 40 mg/dL HIGH Serum or plasma total choles terol/high density lipoprotein (HDL) cholesterol mass ratOrdered By: Addi Ortega on 04-08-2023 Cholesterol.total/Cho lesterol in HDL [Mass ratio] 3.6 {ratio} <5.0 [facility] Sodium [Moles/volume] in Ser um or PlasmaOrdered By: Addi Ortega on 04-08-2023 Sodium [Moles/Vol] 139 mmol/L 136-145 [facility] Thyrotropin [Units/volume] i n Serum or PlasmaOrdered By: Addi Ortega on 04-08-2023 TSH Qn 4.55 m[IU]/L 0.45-5.33 [facility] Triglyceride [Mass/volume] i n Serum or PlasmaOrdered By: Addi Ortega on 04-08-2023 Triglyceride [Mass/Vol] 92 mg/dL 0-149 [facility] Comment on above: TRIG ATP III CLASSIF ICATIONTRIG less than 150 mg/dL NormalTRIG 150-199 mg/dL Borderline highTRIG 200-500 mg/dL High TRIG greater than 500 mg/dL Very highStandard traceable to the Center for Disease Conrtrol and Prevention (CDC) test method. Urea nitrogen [Mass/volume] in Serum or PlasmaOrdered By: Addi Ortega on 04-08-2023 Urea nitrogen [Mass/Vol] 18 mg/dL 7-25 [facility] WBC Auto (Bld) [#/Vol]Ordere d By: Addi Ortega on 04-08-2023 WBC (Bld) [#/Vol] 7.6 10*3/uL 3.8-11.6 [facility] C Urineon 03-24-2023 Bacteria identified [...] was performed at: [facility], [address] [place] [address], [phone] , [place], [facility] Comment on above: Performed By: #### 2 489241, 3875430, 07347728, 1306742, 4385416, 4641779 #### [facility] [address] [place] [address] [address] [address] Abdomen/Pelvis w/o Contra stoakilah 03-23-2023 CT Abdomen/Pelvis w/o Contrast Exam Date/Time: [...] Oral contrast amount in ml's: 0 [facility] Discharge Instructionson Discharge Instructions [id number]:127 [facility] ED Note-Physicianon 03-23-20 ED Note-Physician [...] any medications. States that she was at [facility], where she did wait about 5 [...] and Complexity of Problems Differential Diagnosis: [] [facility] Data External documents reviewed: [] My [...] day(s), # 28 cap(s), Refills(s) 0, Pharmacy: [facility], 170.2, cm, 03/22/23 20:14:00 EDT, Height/Length Dosing, 113.5, kg, 03/22/23 20:14:00 EDT, Weight Dosing ketorolac, 30 mg = 1 mL, Injection, IV Push, Once, Stop date 03/22/23 20:51:00 EDT, STAT, Start date 03/22/23 20:51:00 EDT, 03/22/23 20:51:00 EDT ondansetron, 4 mg = 2 mL, Injection, IV Push, Once, Stop date 03/22 (more content not included)... [facility] Comment on above: Result Comment: Elec tronically Signed By: Hector Correa PA-C\.br\Date and Time Signed: 03/22/23 23:35 EDT\.br\Electronically Co-Signed By: Gabriel Curtis DO.jaspal\Date and Time Co-Signed: 08/08/23 03:21 EDT RAD - Preliminary Cat Scan R eporton 03-23-2023 RAD - Preliminary Cat Scan Report [id number]:127 [facility] Auto Diffon 03-22-2023 Basophils/100 WBC (Bld) 0.5 % Normal 0.0-2.0 [facility] Comment on above: Order Comment: Order Added by Discern Expert. Performed By: #### 2 345607, 8013743, 90224931, 5528101, 7949824, 9225727 #### [facility] [address] [place] [address] Basophils/Leukocytes Auto (Bld) [Pure # fraction] 0.0 E9/L Normal 0.0-0.2 [facility] Comment on above: Order Comment: Order Added by Discern Expert. Performed By: #### 2 945376, 3578337, 64459121, 6898660, 3769542, 5115596 #### [facility] [address] [place] [address] Eosinophils/100 WBC (Bld) 1.5 % Normal 0.0-8.0 [facility] Comment on above: Order Comment: Order Added by Discern Expert. Performed By: #### 2 824204, 8721887, 17678978, 8224166, 3840348, 1123417 #### [facility] [address] [place] [address] Eosinophils/Leukocyte s Auto (Bld) [Pure # fraction] 0.1 E9/L Normal 0.0-0.5 [facility] Comment on above: Order Comment: Order Added by Discern Expert. Performed By: #### 2 585292, 2528510, 56746234, 2248785, 6585474, 7528768 #### [facility] [address] [place] [address] Lymphocytes/100 WBC (Bld) 34.9 % Normal 14.0-50.0 [facility] Comment on above: Order Comment: Order Added by Discern Expert. Performed By: #### 2 858748, 9363284, 29824871, 2823406, 8131946, 2595796 #### [facility] [address] [place] [address] Lymphocytes/Leukocyte s Auto (Bld) [Pure # fraction] 3.4 E9/L Normal 1.0-4.0 [facility] Comment on above: Order Comment: Order Added by Discern Expert. Performed By: #### 2 880783, 9162208, 89780648, 7638765, 2887381, 4718849 #### [facility] [address] [place] [address] Monocytes/100 WBC (Bld) 6.0 % Normal 4.0-14.0 [facility] Comment on above: Order Comment: Order Added by Discern Expert. Performed By: #### 2 681045, 7061796, 08720385, 3285717, 6048257, 5155618 #### [facility] [address] [place] [address] Monocytes/Leukocytes Auto (Bld) [Pure # fraction] 0.6 E9/L Normal 0.2-1.0 [facility] Comment on above: Order Comment: Order Added by Discern Expert. Performed By: #### 2 478918, 2318727, 01175853, 9151555, 9517759, 8020039 #### [facility] [address] [place] [address] Neutrophils/100 WBC (Bld) 57.1 % Normal 36.0-75.0 [facility] Comment on above: Order Comment: Order Added by Discern Expert. Performed By: #### 2 306808, 2699630, 33419405, 3475149, 9470720, 9914616 #### [facility] [address] [place] [address] Neutrophils/Leukocyte s Auto (Bld) [Pure # fraction] 5.6 E9/L Normal 2.0-7.5 [facility] Comment on above: Order Comment: Order Added by Discern Expert. Performed By: #### 2 574149, 0889301, 19298765, 3123887, 6154935, 7723812 #### [facility] [address] [place] [address] BMPon 03-22-2023 Creatinine [Mass/Vol] 0.5 mg/dL Normal 0.5-1.3 [facility] Comment on above: Performed By: #### 2 309645, 1690684, 45397535, 6261422, 4610163, 3830526 #### [facility] [address] [place] [address] Urea nitrogen [Mass/Vol] 15 mg/dL Normal 5-21 [facility] Comment on above: Performed By: #### 2 026083, 7334738, 36918525, 8169630, 1261383, 0806348 #### [facility] [address] [place] [address] Urea nitrogen/Creatinine [Mass ratio] 30 No Units High 10-20 [facility] Comment on above: Performed By: #### 2 675414, 1429358, 23025013, 7584528, 6935737, 1140473 #### [facility] [address] [place] [address] Anion gap [Moles/Vol] 15 mmol/L Normal 6-16 [facility] Comment on above: Performed By: #### 2 195508, 4813627, 97469874, 2064674, 1881696, 0689894 #### [facility] [address] [place] [address] Calcium [Mass/Vol] 9.6 mg/dL Normal 8.9-11.1 [facility] Comment on above: Performed By: #### 2 732242, 6421643, 66802104, 1352545, 0108157, 6392748 #### [facility] [address] [place] [address] Chloride [Moles/Vol] 103 mmol/L Normal 101-111 [facility] Comment on above: Performed By: #### 2 163868, 0580286, 35474181, 2567978, 5432452, 0570056 #### [facility] [address] [place] [address] CO2 [Moles/Vol] 23 mmol/L Normal 21-31 [facility] Comment on above: Performed By: #### 2 742988, 4716893, 03323954, 6210562, 6132277, 1473365 #### [facility] [address] [place] [address] Glucose [Mass/Vol] 84 mg/dL Normal 55-199 [facility] Comment on above: Result Comment: If t his glucose result represents a fasting glucose, interpretation should refer to the following reference range: 55-99 mg/dL Performed By: #### 2 925959, 5060729, 36508103, 0599045, 4655545, 8217382 #### [facility] [address] [place] [address] Potassium [Moles/Vol] 3.7 mmol/L Normal 3.5-5.3 [facility] Comment on above: Performed By: #### 2 240928, 1727098, 50980513, 9628181, 4871072, 2190749 #### [facility] [address] [place] [address] Sodium [Moles/Vol] 137 mmol/L Normal 135-145 [facility] Comment on above: Performed By: #### 2 217968, 6116204, 56407718, 4188762, 5109377, 7565570 #### [facility] [address] [place] [address] CBC w/ Auto Diffon 3 Erythrocyte distribution width (RBC) [Ratio] 12.5 % Normal 10.9-14.2 [facility] Comment on above: Performed By: #### 2 770278, 4575962, 99166360, 3655224, 9223390, 9609327 #### [facility] [address] [place] [address] Hematocrit (Bld) [Volume fraction] 37.7 % Normal 34.0-46.0 [facility] Comment on above: Performed By: #### 2 027932, 8929247, 78002492, 3021188, 8145980, 1359285 #### [facility] [address] [place] [address] Hemoglobin (Bld) [Mass/Vol] 13.1 g/dL Normal 12.0-16.0 [facility] Comment on above: Performed By: #### 2 018126, 9550133, 62338397, 1008672, 1858306, 5446596 #### [facility] [address] [place] [address] MCH (RBC) [Entitic mass] 31.9 pg Normal 27.0-34.0 [facility] Comment on above: Performed By: #### 2 097452, 0135058, 77898163, 9812442, 5471676, 7697684 #### [facility] [address] [place] [address] MCHC (RBC) [Mass/Vol] 34.8 g/dL Normal 31.4-36.0 [facility] Comment on above: Performed By: #### 2 432899, 8090305, 66251191, 0835137, 3478142, 5616660 #### [facility] [address] [place] [address] MCV (RBC) [Entitic vol] 91.6 fL Normal 80.0-100.0 [facility] Comment on above: Performed By: #### 2 981967, 0707047, 82268777, 6833105, 8415311, 7509906 #### [facility] [address] [place] [address] Platelet mean volume (Bld) [Entitic vol] 7.6 fL Normal 6.4-10.8 [facility] Comment on above: Performed By: #### 2 996511, 1903845, 92785058, 2255637, 8702832, 3360909 #### [facility] [address] [place] [address] Platelets (Bld) [#/Vol] 306.0 E9/L Normal 150.0-500. 0 [facility] Comment on above: Performed By: #### 2 657836, 1022077, 62996734, 7289669, 6733238, 0101705 #### [facility] [address] [place] [address] RBC (Bld) [#/Vol] 4.1 E12/L Low 4.3-5.9 [facility] Comment on above: Performed By: #### 2 337070, 7764615, 47638918, 3599097, 9360484, 7353574 #### [facility] [address] [place] [address] WBC corrected for nucl RBC Auto (Bld) [#/Vol] 9.8 E9/L Normal 4.0-11.0 [facility] Comment on above: Performed By: #### 2 396518, 4904434, 62766223, 1664610, 4563954, 6912589 #### [facility] [address] [place] [address] CHEMISTRYOrdered By: SYSTEM SYSTEM on 03-22-2023 Albumin [...] Consent for Treatmenton Consent for Treatment [id number]:127 [facility] ED Clinical Summaryon 2022 ED Clinical Summary (Inserted Image. Hayley ble to display) [place] [id number] ED Clinical Summary Person Information Name: TAWNYA HERRING [facility] Age: 27 Years : 1995 Sex: Female Language: Northern Irish PCP: DARWIN JONES CNP Marital Status: Single Phone: [phone] Visit Id: Visit Reason: Dysuria; Nausea; Flank [...] 03/22/2023 22:52:44 03/22/2023 22:52:44 03/22/2023 22:52:44 ADDRESS: [address] [place] [phone] PHYS DOC NOTES: MEDICAL INFORMATION: Prescriptions Given: New Medications [facility], [address] [place] [id number], [phone] cephalexin (Keflex 500 mg Cap) 1 Capsules By Mouth every 6 hours for 7 Days. Refills: 0. Medications to Continue with No Changes Other Medications acetaminophen-hydrocodone ([place] 325 mg-5 mg oral tablet) 2 Tablets [...] EDUCATION INFORMATION: Instructions: Urinary Tract Infection, Adult, Hopb-sc-Ifqh Follow up: With: Address: When: [place] [id number] [facility] [place] [phone] Business (1) In 3 days 03/25/2023 Comments: Follow-up with your primary care provider in 3 to 5 days. If symptoms worsen, do not improve, or new symptoms arise please report back to emergency department for further evaluation. DIAGNOSIS: UTI (urinary tract infection) [facility] ED Patient Education Noteon 03-22-2023 [...] these instructions at home: Medicines ? Take pspx-pfi-pojrkyr and prescription medicines only as told by [...] provider. Document Revised: 03/14/2021 Document Reviewed: 03/14/2021 [employer] Patient Education ? 2022 [employer] [facility] ED Patient Summaryon 023 ED Patient Summary (Inserted Image. Hayley ble to display) [place] [id number] Patient Discharge Instructions Person Information Name: TAWNYA HERRING Age: 27 Years Arrival Date: 03/22/2023 19:52:37 Discharge Diagnosis: UTI (urinary tract infection) Primary Care Physician: DARWIN JONES CNP Provider Information Primary Provider: Gabriel Curtis DO Advanced Pageant Director:None The exam and treatment you received in the Emergency Department were for an urgent problem and are not intended as complete care. It is important that you follow up with a doctor, nurse practitioner, or physician?s produce assistant for ongoing care. If your symptoms become worse or you do not improve as expected and you are unable to reach your usual health care provider, you should return to the Emergency Department. We are available 24 hours a day. TAWNYA HERRING has been given the following list of patient education materials, prescriptions and follow-up instructions: Follow-up Instructions: With: Address: When: D[place]WIN JONESJOE[place] [address] [facility] [place] [phone] Business (1) In 3 days 03/25/2023 Comments: [...] Patient Education Materials: Urinary Tract Infection, Adult, Lsnm-gm-Izqg A MESSAGE TO ALL PATIENTS REGARDING OPIOIDS PRESCRIPTION OPIOIDS: WHAT YOU NEED TO KNOW Prescription opioids can be used to help relieve imizgftq-nt-wqolwp pain and are often prescribed following a [...] of op (more content not included)... [facility] HEMATOLOGYOrdered By: SYSTEM SYSTEM on [...] 9.8 E9/L Normal 4.0 - 11.0 E9/L [facility] HemeAutoSS Hep Func Panelon 03-22-2023 Albumin [Mass/Vol] 4.2 g/dL Normal 3.3-5.0 [facility] Comment on above: Performed By: #### 2 322349, 6661717, 00971447, 7902016, 7678997, 8921667 #### [facility] [address] [place] [address] Albumin/Globulin (S) [Mass conc ratio] 1.4 Normal 1.1-2.2 [facility] Comment on above: Performed By: #### 2 145959, 8649565, 96412091, 0124120, 8420710, 8937361 #### [facility] [address] [place] [address] ALP [Catalytic activity/Vol] 54 Int._Unit/L Normal 21-98 [facility] Comment on above: Performed By: #### 2 285520, 5198098, 27291276, 5919621, 6684964, 2714969 #### [facility] [address] [place] [address] ALT No additional P-5'-P [Catalytic activity/Vol] 24 Int._Unit/L Normal 6-46 [facility] Comment on above: Performed By: #### 2 873466, 2639487, 03443236, 8819460, 4580751, 2038237 #### [facility] [address] [place] [address] AST [Catalytic activity/Vol] 18 Int._Unit/L Normal 5-43 [facility] Comment on above: Performed By: #### 2 779791, 9064407, 45477942, 0842873, 0038138, 5233805 #### [facility] [address] [place] [address] Bilirubin [Mass/Vol] 0.7 mg/dL Normal 0.0-1.1 [facility] Comment on above: Performed By: #### 2 353797, 0417238, 57356909, 4107970, 3015354, 2364212 #### [facility] [address] [place] [address] Bilirubin.direct [Mass/Vol] 0.1 mg/dL Normal 0.1-0.4 [facility] Comment on above: Performed By: #### 2 562084, 2611434, 69967779, 9344689, 2071687, 6633549 #### [facility] [address] [place] [address] Bilirubin.indirect [Mass or moles/Vol] 0.6 mg/dL Normal 0.1-0.9 [facility] Comment on above: Performed By: #### 2 894346, 6637220, 80793403, 8182309, 7802457, 5152511 #### [facility] [address] [place] [address] Globulin (S) [Mass/Vol] 3.1 g/dL Normal 1.4-4.0 [facility] Comment on above: Performed By: #### 2 273122, 6506558, 09063873, 1434013, 3496232, 7537920 #### [facility] [address] [place] [address] Protein [Mass/Vol] 7.3 g/dL Normal 6.0-7.8 [facility] Comment on above: Performed By: #### 2 241361, 5389084, 95642207, 7137748, 8390817, 2113849 #### [facility] [address] [place] [address] Lipase Levelon 03-22-2023 Lipase [Catalytic activity/Vol] 28 U/L Normal 13-58 [facility] Comment on above: Performed By: #### 2 609876, 9376087, 74103875, 9238630, 8441554, 4654641 #### [facility] [address] [place] [address] SEROLOGYOrdered By: Lucina Shaikh on 03-22-2023 HCG.beta subunit (U) [Moles/Vol] Negative Normal [facility] [place] Sero U BetaHcg Qualon 03-22-2023 HCG.beta subunit (U) [Moles/Vol] Negative Normal [facility] Comment on above: Performed By: #### 2 658271, 2076809, 76903515, 2342580, 1981704, 4434046 #### [facility] [address] [place] [address] UA With Cult Reflexon 2022 Bacteria LM Ql (Urine sed) TRACE Normal Trace [facility] Comment on above: Performed By: #### 2 460634, 2374958, 01682810, 2572548, 0277834, 6816509 #### [facility] [address] [place] [address] Bilirubin Ql (U) Negative Normal Negative [facility] Comment on above: Performed By: #### 2 082472, 5963059, 97218638, 2987876, 5354483, 0797636 #### [facility] [address] [place] [address] Clarity (U) SL CLOUDY Abnormal Clear [facility] Comment on above: Performed By: #### 2 809326, 0757965, 14971118, 8585678, 8220549, 4376101 #### [facility] [address] [place] [address] Color (U) YELLOW Normal Yellow [facility] Comment on above: Performed By: #### 2 692903, 2655773, 10979334, 3755431, 1653296, 1873246 #### [facility] [address] [place] [address] Crystals LM Ql (Urine sed) Present Normal [facility] Comment on above: Performed By: #### 2 206665, 1614127, 93272008, 5480273, 6742387, 5478939 #### [facility] [address] [place] [address] Epithelial cells.squamous LM.HPF (Urine sed) [#/Area] 0-2 Normal 0-2 [facility] Comment on above: Performed By: #### 2 173935, 1344777, 45349703, 2033980, 3985140, 4148330 #### [facility] [address] [place] [address] Glucose Test strip (U) [Mass/Vol] Negative Normal Negative [facility] Comment on above: Performed By: #### 2 946259, 0282550, 59773678, 1507570, 6592907, 6433833 #### [facility] [address] [place] [address] Hemoglobin Ql (U) 2+ Abnormal Negative [facility] Comment on above: Performed By: #### 2 352418, 3859817, 41335060, 9066057, 7706332, 2199147 #### [facility] [address] [place] [address] Ketones (U) [Mass/Vol] 1+ Abnormal Negative [facility] Comment on above: Performed By: #### 2 699398, 4203879, 07688183, 2403592, 9046306, 2401695 #### [facility] [address] [place] [address] [place].plasma/Lithiu m.RBC (Bld) [Mass ratio] 0-3 Normal 0-3 [facility] Comment on above: Performed By: #### 2 889641, 0056609, 61483354, 4799173, 4581269, 7352936 #### [facility] [address] [place] [address] Mucus Ql (Urine sed) TRACE Normal [facility] Comment on above: Performed By: #### 2 168627, 9199056, 10282082, 3744576, 4652073, 4806621 #### [facility] [address] [place] [address] Nitrite Ql (U) Negative Normal Negative [facility] Comment on above: Performed By: #### 2 403393, 2946602, 83231877, 1549066, 0013885, 1645886 #### [facility] [address] [place] [address] pH (U) 5.5 [pH] Invalid Interpretation Code 5.0-9.0 [facility] Comment on above: Performed By: #### 2 292795, 5483835, 55552824, 4297887, 4656580, 7875221 #### [facility] [address] [place], [place] [id number] Protein (U) [Mass/Vol] Negative Normal Negative [facility] Comment on above: Performed By: #### 2 797071, 5892982, 77936620, 0466083, 1825518, 9485004 #### [facility] [address] [place] [address] Specific gravity (U) [Rel density] >=1.030 Invalid Interpretation Code 1.005-1.03 0 [facility] Comment on above: Performed By: #### 2 076586, 4026621, 88045156, 4663745, 0948672, 7598059 #### [facility] [address] [place] [address] Type of Urine collection method Clean Catch Normal [facility] Comment on above: Performed By: #### 2 280777, 2565870, 81055680, 7497836, 7133144, 1062420 #### [facility] [address] [place], [place] [address] Urobilinogen Qn (U) 0.2 {Aly'U}/dL Normal 0.0-1.0 [facility] Comment on above: Performed By: #### 2 281109, 4927319, 96520385, 8250064, 3243489, 5314700 #### [facility] [address] [place] [address] WBC Auto Ql (U) 2+ Abnormal Negative [facility] Comment on above: Performed By: #### 2 375272, 0841940, 62840189, 4813492, 4942278, 8742674 #### [facility] [address] [place] [address] WBC LM.HPF (Urine sed) [#/Area] 16-25 Abnormal 0-5 [facility] Comment on above: Performed By: #### 2 366293, 4988566, 35726857, 2063321, 1238232, 4227144 #### [facility] [address] [place] [address] URINALYSISOrdered By: Elizabeth Shaikh on 03-22-2023 Bacteria [...] Interpretation Code Negative [facility] UA Auto SS [place].plasma/Lithiu m.RBC (Bld) [Mass ratio] 0-3 /HPF Normal [...] [Mass/Vol] Negative (03/22/23 8:17 PM) Normal Negative [facility] UA Auto SS Specific gravity (U) [Rel density] >=1.030 *NA* (03/22/23 8:17 PM) Invalid Interpretation Code 1.005 - 1.030 [facility] UA Auto SS UA Spec Desc Clean Catch (03/22/23 8:17 PM) Normal [facility] UA Auto SS Urobilinogen Qn (U) 0.9451256 {Aly'U}/dL Normal 0.0 - 1.0 EU/dL [facility] UA Auto SS WBC Auto Ql (U) 2+ *ABN* (03/22/23 8:17 PM) Invalid Interpretation Code Negative [facility] UA Auto SS WBC LM.HPF (Urine sed) [#/Area] 16-25 /HPF Invalid Interpretation Code 0-5/HPF [facility] UA Auto SS eGFRon 03-22-2023 GFR/1.73 sq M.predicted among non-blacks MDRD (S/P/Bld) [Vol rate/Area] 133 mL/min/1.73 m2 Normal >=59 [facility] Comment on above: Order Comment: Order added by Discern Expert. Result Comment: [employer]door [employer] Professor vinh kidney disease could be indicated at eGFR's of less than 60 mL/min/1.73m2. Kidney failure is indicated at less than 15 mL/min/1.73m2. Performed By: #### 2 574063, 9367722, 13308703, 1911155, 9984122, 3964233 #### [facility] [address] [place] [address] Alanine aminotransferase [En zymatic activity/volume] in Serum or PlasmaOrdered By: Zurdo Ortega on 02-28-2023 ALT [Catalytic activity/Vol] 21 U/L 7-52 [facility] HIV 1 and HIV-2 antibody ass ay with HIV-1 p24 antigen detectionOrdered By: Zurdo Ortega on 02-28-2023 HIV 1+2 Ab+HIV1 p24 Ag IA Ql Non-Reactive Non Reactive [facility] Comment on above: HIV NegativeHIV-1/HI V-2 antibodies and HIV-1 p24 antigen were NOTdetected. There is no laboratory evidence of HIV infection. Hepatitis B virus surface Ag [Presence] in Serum or Plasma by ImmunoassayOrdered By: Zurdo Ortega on 02-28-2023 HBV surface Ag IA Ql Negative Negative [facility] Comment on above: Performed at: [address] [id number] Director: Alexis Ashton PhD, Phone: [phone] Hepatitis C virus IgG Ab [Pr esence] in Serum or Plasma by ImmunoassayOrdered By: Zurdo Ortega on 02-28-2023 HCV IgG IA Ql Non-Reactive Non Reactive [facility] No Panel InformationOrdered By: Zurdo Ortega on 02-28-2023 Hepatitis C Interpretation See comment . [facility] Comment on above: Not infected with HC V unless early or acute infection issuspected (which may be delayed in an immunocompromisedindividual), or other evidence exists to indicate HCVinfection. Serum hepatitis B virus surf nikolas antibody detectionOrdered By: Zurdo Ortega on 02-28-2023 HBV surface Ab Ql (S) Reactive . [facility] Comment on above: Non Reactive: Incons istent with immunity, less than 10 mIU/mL Reactive: Consistent with immunity, greater than 9.9 mIU/mL PAP ACOG PANEL 2: 21 to 29on 12-17-2022 . . Normal Comment on above: Performed By: #### 4 [id number] #### [facility] [address] [place] [address] Dr. Regine Fortune Age Gdln ACOG Testing - Normal Comment on above: Performed By: #### 4 904584 #### [facility] [address] [address] [address] Regine Fortune DIAGNOSIS: Comment [facility] Comment on above: Result Comment: NEGA TIVE FOR INTRAEPITHELIAL LESION OR MALIGNANCY. Performed By: #### 4 494533 #### [facility] [address] [address] [address] Regine Fortune Methodology: Comment [facility] Comment on above: Result Comment: This liquid based ThinPrep(R) pap test was screened with the use of an image guided system. Performed By: #### 4 879794 #### [facility] [address] [address] [address] Regine Fortune Note: Comment Normal Comment on above: Result Comment: The Pap smear is a screening test designed to aid in the detection of premalignant and malignant conditions of the uterine cervix. It is not a diagnostic procedure and should not be used as the sole means of detecting cervical cancer. Both false-positive and false-negative reports do occur. . Performed By: #### 4 397028 #### [facility] [address] [address] [address] Regine Fortune Performed by: Comment Normal [facility] Comment on above: Result Comment: Amna Hernandes Physician In Private Practice (ASCP) Performed By: #### 4 780843 #### [facility] [address] [place] [address] Dr. Regine Fortune Reflex Criteria: Comment Normal [facility] Comment on above: Result Comment: The HPV DNA reflex criteria were not met with this specimen result therefore, no HPV testing was performed. . Performed By: #### 4 968803 #### [facility] [address] [place] [address] Dr. Regine Fortune Specimen adequacy: Comment Normal [facility] Comment on above: Result Comment: Sati sfactory for evaluation. Endocervical and/or squamous metaplastic cells (endocervical component) are present. Areas of partially obscuring inflammatory exudate are present. Performed By: #### 4 [id number] #### [facility] [address] [place] [address] Dr. Regine Fortune Thyrotropin [Units/volume] i n Serum or PlasmaOrdered By: Brain Way on 12-10-2022 TSH Qn 2.86 m[IU]/L 0.45-5.33 [facility] Thyroxine (T4) free [Mass/vo lume] in Serum or PlasmaOrdered By: Brain Way on 12-10-2022 Free T4 [Mass/Vol] 0.94 ng/dL 0.61-1.12 [facility] Albumin [Mass/volume] in Ser um or PlasmaOrdered By: Ofelia Hester on 10-16-2022 Albumin [Mass/Vol] 4.1 g/dL 3.2-5.5 [facility] Alkaline phosphatase [Enzyma tic activity/volume] in Serum or PlasmaOrdered By: Ofelia Hester on 10-16-2022 ALP [Catalytic activity/Vol] 56 U/L 32-92 [facility] Amylaseon 10-16-2022 Amylase 43 U/L Normal 28-100 U/L [facility] Amylase [Enzymatic activity/ volume] in Serum or PlasmaOrdered By: Ofelia Hester on 10-16-2022 Amylase [Catalytic activity/Vol] 43 U/L 28-100 [facility] Aspartate aminotransferase [ Enzymatic activity/volume] in Serum or PlasmaOrdered By: Ofelia Hester on 10-16-2022 AST [Catalytic activity/Vol] 16 U/L 10-42 [facility] Bilirubin.total [Mass/volume ] in Serum or PlasmaOrdered By: Ofelia Hester on 10-16-2022 Bilirubin [Mass/Vol] 0.6 mg/dL 0.3-1.2 [facility] Calcium [Mass/volume] in Ser um or PlasmaOrdered By: Ofelia Hester on 10-16-2022 Calcium [Mass/Vol] 9.3 mg/dL 8.2-10.2 [facility] Carbon dioxide, total [Moles /volume] in Serum or PlasmaOrdered By: Ofelia Hester on 10-16-2022 CO2 [Moles/Vol] 22.1 mmol/L 22.0-30.0 [facility] Chloride [Moles/volume] in S ghada or PlasmaOrdered By: Ofelia Hester on 10-16-2022 Chloride [Moles/Vol] 105 mmol/L 95-114 [facility] Comprehensive Metabolic Pane samy 10-16-2022 Albumin [Mass/Vol] 4.106646 g/dL Normal 3.2-5.5 g/dL [facility] ALT [Catalytic activity/Vol] 17 U/L Normal 10-60 U/L [facility] Bilirubin [Mass/Vol] 0.4312034 mg/dL Normal 0.3- 1.2 mg/dL [facility] Calcium [Mass/Vol] 9.1875501 mg/dL Normal 8.2-10 .2 mg/dL [facility] CO2 [Moles/Vol] 22.25368126 mmol/L Normal 22.0-3 0.0 mmol/L [facility] Creatinine [Mass/Vol] 0.42873156 mg/dL Normal 0. 44-1.03 mg/dL [facility] Potassium [Moles/Vol] 4.66130864 mmol/L Normal 3 .5-5.1 mmol/L [facility] Protein [Mass/Vol] 6.236576 g/dL Normal 6.1-7.9 g/dL [facility] Comprehensive Metabolic Panel > 60 [facility] Comprehensive Metabolic Panel 2.5 g/dL [facility] Creatinine and Glomerular fi ltration rate.predicted panel (S/P/Bld)Ordered By: Ofelia Hester on 10-16-2022 Creatinine [Mass/Vol] 0.55 mg/dL 0.44-1.03 [facility] Estimated glomerular filtrat ion rate (GFR) non- AmericanOrdered By: Ofelia Hester on 10-16-2022 GFR/1.73 sq M.predicted among non-blacks MDRD (S/P/Bld) [Vol rate/Area] > 60 mL/Min [facility] Globulin Calc (S) [Mass/Vol] Ordered By: Ofelia Hester on 10-16-2022 Globulin (S) [Mass/Vol] 2.5 g/dL [facility] Glucose [Mass/volume] in Ser um or PlasmaOrdered By: Ofelia Hester on 10-16-2022 Glucose [Mass/Vol] 86 mg/dL 70-100 [facility] Comment on above: ADA recommended refe rence rangeRandom Glucose Reference Range is dependent on time and content of last meal. Glucose of more than 200 mg/dL in a nonstressed, ambulatory subject supports the diagnosis of Diabetes Mellitus. Laboratory - Chemistry and C hemistry - challengeOrdered By: Ofelia Hester on 10-16-2022 Lipase [Catalytic activity/Vol] 35.0 U/L 22-51 [facility] Lipaseon 10-16-2022 Lipase [Catalytic activity/Vol] 35.51493 U/L Normal 22-51 U/L [facility] Other No Panel InformationOrdered By: Ofelia Hester on 10-16-2022 Estimated GFR () > 60 mL/Min [facility] Comment on above: GFR estimated refere nce range: According to KDOQI guidelines, <60 ml/min/1.73m2 is sufficient to diagnose a patient with chronic kidney disease. Pharmacy Creatinine Clearance (Chem N/A [facility] Potassium [Moles/volume] in Serum or PlasmaOrdered By: Ofelia Hester on 10-16-2022 Potassium [Moles/Vol] 4.3 mmol/L 3.5-5.1 [facility] Protein [Mass/volume] in Ser um or PlasmaOrdered By: Ofelia Hester on 10-16-2022 Protein [Mass/Vol] 6.6 g/dL 6.1-7.9 [facility] Serum or plasma alanine galaviz otransferase measurement without P-5'-P (enzymatic activiOrdered By: Ofelia Hester on 10-16-2022 ALT No additional P-5'-P [Catalytic activity/Vol] 17 U/L 10-60 [facility] Serum or plasma albumin/glob ulin mass ratioOrdered By: Ofelia Hester on 10-16-2022 Albumin/Globulin [Mass ratio] 1.6 {ratio} [facility] Serum or plasma anion gap de terminationOrdered By: Ofelia Hester on 10-16-2022 Anion gap [Moles/Vol] 13.2 mmol/L 6.0-15.0 [facility] Sodium [Moles/volume] in Ser um or PlasmaOrdered By: Ofelia Hester on 10-16-2022 Sodium [Moles/Vol] 136 mmol/L 136-146 [facility] Urea nitrogen [Mass/volume] in Serum or PlasmaOrdered By: Ofelia Hester on 10-16-2022 Urea nitrogen [Mass/Vol] 11 mg/dL 9- [facility] T4 FREE/FREE THYROXon 2021 Free T4 [Mass/Vol] 1.3 ng/dL 0.9 - 1.7 ng/dL [facility] TSH BLDon 07-14-2022 TSH Qn 2.480 m[IU]/L 0.270 - 4.200 mIU/L [facility] VITAMIN B12 BLOODon 07-14-20 Cobalamin (Vitamin B12) [Mass/Vol] 267 pg/mL 232 - 1,245 pg/mL [facility] Quick Fluon 06-04-2022 FLUAV Ab CF (S) [Titer] Negative [facility] FLUBV Ab CF (S) [Titer] Negative [facility] Other Quick Strepon 06-04-2022 S. pyogenes Org specific cx Ql (Throat) Negative [facility] Other Quick Strep [facility] Other SARS-CoV-2 (COVID-19) RNA NA A+probe Ql (Resp)on 06-04-2022 SARS-CoV-2 (COVID-19) RNA LAUREN+probe Ql (Unsp spec) Negative [facility] Other TSH DL <= 0.005 mIU/L QnOrde red By: Darwin Jones on 04-14-2022 TSH Qn 6.39 m[IU]/L 0.45-5.33 [facility] Thyroxine (T4) free [Mass/vo lume] in Serum or PlasmaOrdered By: Darwin Jones on 04-14-2022 Free T4 [Mass/Vol] 0.82 ng/dL 0.61-1.12 [facility] Triiodothyronine (T3) Free [ Mass/volume] in Serum or PlasmaOrdered By: Darwin Jones on 04-14-2022 Free T3 [Mass/Vol] 4.08 pg/mL 2.50-3.90 [facility] Serum or plasma calcium luis urement (mass/volume)Ordered By: Saad Valera on 04-06-2022 Calcium [Mass/Vol] 9.4 mg/dL 8.2-10.2 [facility] Serum or plasma intact parat hyroid hormone measurement (mass/volume)Ordered By: Saad Valera on 04-06-2022 Parathyrin.intact [Mass/Vol] 54.8 pg/mL [facility] CHEMISTRYOrdered By: Lab ROP User on 02-18-2022 Glucose [Mass/Vol] 106 mg/dL High 55 - 99 mg/dL [facility] POC Subsection Comment on above: Result Comment: Aurelia breana Meter POC Device SN [id number] Invalid Interpretation Code [facility] POC Subsection POC User ID [id number] Invalid Interpretation Code [facility] POC Subsection POC Username OBINNA EPPERSON Invalid Interpretation Code [facility] POC Subsection Serum or plasma thyroglobuli n antibody assay (units/volume)Ordered By: Darwin Jones on 02-13-2022 Thyroglobulin Ab Qn 971.2 [IU]/mL 0.0-0.9 [facility] Comment on above: Thyroglobulin Antibo dy measured by [employer] Jerome Methodology Performed at: [facility] [address] [id number] [employer] Reseller: Alexis Ashton PhD, Phone: [phone] Serum or plasma thyroperoxid ase antibody assay (units/volume)Ordered By: Darwin Jones on 02-13-2022 TPO Ab Qn 327 [IU]/mL 0-34 [facility] Thyroxine (T4) free [Mass/vo lume] in Serum or PlasmaOrdered By: Darwin Jones on 02-13-2022 Free T4 [Mass/Vol] 0.66 ng/dL 0.61-1.12 [facility] Triiodothyronine (T3) Free [ Mass/volume] in Serum or PlasmaOrdered By: Darwin Jones on 02-13-2022 Free T3 [Mass/Vol] 4.04 pg/mL 2.50-3.90 [facility] Albumin [Mass/volume] in Ser um or PlasmaOrdered By: Addi Ortega on 02-10-2022 Albumin [Mass/Vol] 4.1 g/dL 3.2-5.5 [facility] Basophils Auto (Bld) [#/Vol] Ordered By: Addi Ortega on 02-10-2022 Basophils (Bld) [#/Vol] 0.0 10*3/uL 0.0-0.2 [facility] Basophils/100 WBC Auto (Bld) Ordered By: Addi Ortega on 02-10-2022 Basophils/100 WBC (Bld) 0.4 % . [facility] Blood hemoglobin measurement (mass/volume)Ordered By: Addi Ortega on 02-10-2022 Hemoglobin (Bld) [Mass/Vol] 14.1 g/dL 11.8-15.4 [facility] Blood leukocytes automated c ount (number/volume)Ordered By: Addi Ortega on 02-10-2022 WBC (Bld) [#/Vol] 7.3 10*3/uL 4.5-11.0 [facility] Cholesterol [Mass/volume] in Serum or PlasmaOrdered By: Addi Ortega on 02-10-2022 Cholesterol [Mass/Vol] 195 mg/dL 140-200 [facility] Comment on above: Chol less than 200 m g/dl low risk Chol 201-239 mg/dl borderline risk Chol 240 mg/dl and greater high risk Cholesterol in LDL Calc [Mas s/Vol]Ordered By: Addi Ortega on 02-10-2022 Cholesterol in LDL [Mass/Vol] 113 mg/dL 0-100 [facility] Comment on above: LDL ATP III CLASSIFI CATION LDL less than 100 mg/dL Optimal LDL 100-129 mg/dL Near or above optimal LDL 130-159 mg/dL Borderline high LDL 160-189 mg/dL High LDL greater than 189 mg/dL Very high Cholesterol in VLDL Calc [Ma ss/Vol]Ordered By: Addi Ortega on 02-10-2022 Cholesterol in VLDL [Mass/Vol] 26 mg/dL [facility] Creatinine and Glomerular fi ltration rate.predicted panel (S/P/Bld)Ordered By: Addi Ortega on 02-10-2022 Creatinine [Mass/Vol] 0.71 mg/dL 0.44-1.03 [facility] Eosinophils Auto (Bld) [#/Vo l]Ordered By: Addi Ortega on 02-10-2022 Eosinophils (Bld) [#/Vol] 0.1 10*3/uL 0.0-0.45 [facility] Eosinophils/100 WBC Auto (Bl d)Ordered By: Addi Ortega on 02-10-2022 Eosinophils/100 WBC (Bld) 1.5 % . [facility] Erythrocyte distribution wid th Auto (RBC) [Ratio]Ordered By: Addi Ortega on 02-10-2022 Erythrocyte distribution width (RBC) [Ratio] 14.0 % 11.9-15.3 [facility] Estimated glomerular filtrat ion rate (GFR) non- AmericanOrdered By: Addi Ortega on 02-10-2022 GFR/1.73 sq M.predicted among non-blacks MDRD (S/P/Bld) [Vol rate/Area] > 60 mL/Min [facility] Globulin Calc (S) [Mass/Vol] Ordered By: Addi Ortega on 02-10-2022 Globulin (S) [Mass/Vol] 2.8 g/dL [facility] Hematocrit Auto (Bld) [Volum e fraction]Ordered By: Addi Ortega on 02-10-2022 Hematocrit (Bld) [Volume fraction] 40.3 % 34.0-46.4 [facility] Laboratory - Chemistry and C hemistry - challengeOrdered By: Addi Ortega on 02-10-2022 Glucose [Mass/Vol] 90 mg/dL 70-100 [facility] Laboratory - Hematology and Cell countsOrdered By: Addi Ortega on 02-10-2022 Nucleated RBC/100 WBC (Bld) [Ratio] 0.1 % 0-0.5 [facility] Lymphocytes Auto (Bld) [#/Vo l]Ordered By: Addi Ortega on 02-10-2022 Lymphocytes (Bld) [#/Vol] 3.3 10*3/uL 1.00-4.8 [facility] Lymphocytes/100 WBC Auto (Bl d)Ordered By: Addi Ortega on 02-10-2022 Lymphocytes/100 WBC (Bld) 45.2 % . [facility] MCH Auto (RBC) [Entitic mass ]Ordered By: Addi Ortega on 02-10-2022 MCH (RBC) [Entitic mass] 33.0 pg 24.7-34.3 [facility] MCHC Auto (RBC) [Mass/Vol]Or dered By: Addi Ortega on 02-10-2022 MCHC (RBC) [Mass/Vol] 34.9 g/dL 32.0-35.0 [facility] MCV Auto (RBC) [Entitic vol] Ordered By: Addi Ortega on 02-10-2022 MCV (RBC) [Entitic vol] 94.6 fL 80-100 [facility] Monocyte %Ordered By: Addi Ortega on 02-10-2022 Monocyte % 134 mg/dL 35-149 [facility] Comment on above: TRIG ATP III CLASSIF ICATION TRIG less than 150 mg/dL Normal TRIG 150-199 mg/dL Borderline high TRIG 200-500 mg/dL High TRIG greater than 500 mg/dL Very high Standard traceable to the Center for Disease Conrtrol and Prevention (CDC) test method. Monocytes Auto (Bld) [#/Vol] Ordered By: Addi Ortega on 02-10-2022 Monocytes (Bld) [#/Vol] 0.5 10*3/uL 0.0-0.8 [facility] Monocytes/100 WBC Auto (Bld) Ordered By: Addi Ortega on 02-10-2022 Monocytes/100 WBC (Bld) 6.3 % . [facility] Neutrophils Auto (Bld) [#/Vo l]Ordered By: Addi Ortega on 02-10-2022 Neutrophils (Bld) [#/Vol] 3.4 10*3/uL 1.8-7.7 [facility] Neutrophils/100 WBC Auto (Bl d)Ordered By: Addi Ortega on 02-10-2022 Neutrophils/100 WBC (Bld) 46.6 % . [facility] No Panel InformationOrdered By: Addi Ortega on 02-10-2022 Estimated GFR () > 60 mL/Min [facility] Comment on above: GFR estimated refere nce range: According to KDOQI guidelines, <60 ml/min/1.73m2 is sufficient to diagnose a patient with chronic kidney disease. Nicotine Metabolite Negative Cutoff=25 [facility] Comment on above: Performed at: - [address] [id number] [employer] Reseller: Catherine Mendoza MD, Phone: [phone] Pharmacy Creatinine Clearance (Chem N/A [facility] Platelet mean volume Auto (B ld) [Entitic vol]Ordered By: Addi Ortega on 02-10-2022 Platelet mean volume (Bld) [Entitic vol] 8.4 fL 6.3-10.7 [facility] Platelets Auto (Bld) [#/Vol] Ordered By: Addi Ortega on 02-10-2022 Platelets (Bld) [#/Vol] 321 10*3/uL 150-450 [facility] Protein [Mass/volume] in Ser um or PlasmaOrdered By: Addi Ortega on 02-10-2022 Protein [Mass/Vol] 6.9 g/dL 6.1-7.9 [facility] RBC Auto (Bld) [#/Vol]Ordere d By: Addi Ortega on 02-10-2022 RBC (Bld) [#/Vol] 4.26 10*6/uL 3.60-5.00 [facility] Serum or plasma alanine galaviz otransferase measurement without P-5'-P (enzymatic activiOrdered By: Addi Ortega on 02-10-2022 ALT No additional P-5'-P [Catalytic activity/Vol] 26 U/L 10-60 [facility] Serum or plasma albumin/glob ulin mass ratioOrdered By: Addi Ortega on 02-10-2022 Albumin/Globulin [Mass ratio] 1.5 {ratio} [facility] Serum or plasma alkaline hosea sphatase measurement (enzymatic activity/volume)Ordered By: Addi Ortega on 02-10-2022 ALP [Catalytic activity/Vol] 47 U/L 32-92 [facility] Serum or plasma aspartate am inotransferase measurement (enzymatic activity/volume)Ordered By: Addi Ortega on 02-10-2022 AST [Catalytic activity/Vol] 18 U/L 10-42 [facility] Serum or plasma calcium luis urement (mass/volume)Ordered By: Addi Ortega on 02-10-2022 Calcium [Mass/Vol] 9.3 mg/dL 8.2-10.2 [facility] Serum or plasma chloride radha surement (moles/volume)Ordered By: Addi Ortega on 02-10-2022 Chloride [Moles/Vol] 99 mmol/L 95-114 [facility] Serum or plasma high density lipoprotein (HDL) cholesterol measurementOrdered By: Addi Ortega on 02-10-2022 Cholesterol in HDL [Mass/Vol] 55 mg/dL 35-85 [facility] Comment on above: HDL CHOL ATP-III CLA SSIFICATION Cardiovascular Risk HDL > or equal to 60 mg/dL LOW HDL < 40 mg/dL HIGH Serum or plasma potassium me asurement (moles/volume)Ordered By: Addi Ortega on 02-10-2022 Potassium [Moles/Vol] 4.1 mmol/L 3.5-5.1 [facility] Serum or plasma sodium measu rement (moles/volume)Ordered By: Addi Ortega on 02-10-2022 Sodium [Moles/Vol] 135 mmol/L 136-146 [facility] Serum or plasma total biliru bin measurement (mass/volume)Ordered By: Addi Ortega on 02-10-2022 Bilirubin [Mass/Vol] 0.7 mg/dL 0.3-1.2 [facility] Serum or plasma total carbon dioxide measurement (moles/volume)Ordered By: Addi Ortega on 02-10-2022 CO2 [Moles/Vol] 23.3 mmol/L 22.0-30.0 [facility] Serum or plasma total choles terol/high density lipoprotein (HDL) cholesterol mass ratOrdered By: Addi Ortega on 02-10-2022 Cholesterol.total/Cho lesterol in HDL [Mass ratio] 3.5 {ratio} <5.0 [facility] Serum or plasma urea nitroge n measurement (mass/volume)Ordered By: Addi Ortega on 02-10-2022 Urea nitrogen [Mass/Vol] 17 mg/dL 9-23 [facility] TSH DL <= 0.005 mIU/L QnOrde red By: Addi Ortega on 02-10-2022 TSH Qn 57.67 m[IU]/L 0.45-5.33 [facility] No Panel Informationon 09-03 6 {mm/hr} Normal 0-34 [facility] [facility] DO Work Phone: [...] Vital Signs Recorded: 03Sep2021 10:02AMRecorded: 03Sep2021 09:55AM [id number], LUE, [id number], RUE, Sitting [id number], LUE, [id number], RUE, Sitting Heart Rate72, Apical Height5 ft 7 in Nimyvm203 lb 9.6 oz BMI Tvguvnuxla74.36 kg/m2 BSA Calculated2.05 Tobacco Useb) No EKG [...] . Sign (more content not included)... [facility] use status [facility] b) No -[facility] 600 DO Work Phone: Vital Signs Date Time Vital Sign Value Performing Clinician Facility 10-10-2024 11:02-0500 Body mass index (BMI) [Ratio] 40.79 kg/m2 [employer] Work Phone: [facility] 10-10-2024 11:02-0500 Body weight 118.12 kg [employer] Work Phone: [facility] 10-10-2024 11:02-0500 Diastolic blood pressure 78 mm[Hg] [employer] Work Phone: [facility] 10-10-2024 11:02-0500 Systolic blood pressure 114 mm[Hg] [employer] Work Phone: [facility] 10-05-2024 14:20-0500 Body mass index (BMI) [Ratio] 40.72 kg/m2 Mya MCMILLAN Work Phone: [facility] 10-05-2024 14:20-0500 Body weight 117.94 kg Mya MCMILLAN Work Phone: [facility] 10-05-2024 14:20-0500 Diastolic blood pressure 70 mm[Hg] Mya Finch PA Work Phone: [facility] 10-05-2024 14:20-0500 Systolic blood pressure 120 mm[Hg] Mya Stef PA Work Phone: [facility] 09-19-2024 14:33-0500 Body mass index (BMI) [Ratio] 39.49 kg/m2 Brain Seamus DO Work Phone: [facility] 09-19-2024 14:33-0500 Body weight 114.36 kg Brain Seamus DO Work Phone: [facility] 09-19-2024 14:33-0500 Diastolic blood pressure 70 mm[Hg] Brain Seamus DO Work Phone: [facility] 09-19-2024 14:33-0500 Systolic blood pressure 120 mm[Hg] Brain Seamus DO Work Phone: [facility] 09-07-2024 14:44-0500 Body mass index (BMI) [Ratio] 39.75 kg/m2 Mya Finch PA Work Phone: [facility] 09-07-2024 14:44-0500 Body weight 115.12 kg Mya Stef PA Work Phone: [facility] 09-07-2024 14:44-0500 Diastolic blood pressure 82 mm[Hg] Mya Finch PA Work Phone: [facility] 09-07-2024 14:44-0500 Systolic blood pressure 120 mm[Hg] Mya Stef PA Work Phone: [facility] 09-06-2024 14:04-0500 Body temperature 97.88 [degF] Flash Franco [facility] 09-06-2024 14:04-0500 Diastolic blood pressure 77 mm[Hg] Flash Franco [facility] 09-06-2024 14:04-0500 Heart rate 101 /min Flash Franco [facility] 09-06-2024 14:04-0500 Respiratory rate 18 /min Flash Franco [facility] 09-06-2024 14:04-0500 SaO2% (BldA) [Mass fraction] 99 % Flash Franco [facility] 09-06-2024 14:04-0500 Systolic blood pressure 122 mm[Hg] Flash Franco [facility] 09-05-2024 15:45-0500 Hourly Rounding Rogelio Nath [facility] Comment on above: Result Comment: discharge instructions g darek. monitors off and pt up to dress. 09-05-2024 15:35-0500 Hourly Rounding Rogelio Nath [facility] Comment on above: Result Comment: pt was able to keep spri te and lemon ice down. Wants to go home. 09-05-2024 14:49-0500 Hourly Rounding Rogelio Nath [facility] Comment on above: Result Comment: sprite, lemon ice and ju ice given per pt request. 09-05-2024 07:35-0500 Body temperature 98.24 [degF] Rogelio Nath [facility] 09-05-2024 07:35-0500 Diastolic blood pressure 42 mm[Hg] Rogelio Nath [facility] 09-05-2024 07:35-0500 Heart rate 109 /min Rogelio Nath [facility] 09-05-2024 07:35-0500 Mean blood pressure 65 mm[Hg] Rogelio Pham [facility] 09-05-2024 07:35-0500 Respiratory rate 18 /min Rogelio Nath [facility] 09-05-2024 07:35-0500 Systolic blood pressure 111 mm[Hg] Rogelio Nath [facility] 09-05-2024 07:30-0500 Blood Pressure Location Rogelio Nath [facility] 09-05-2024 04:32-0500 Blood Pressure Location Rogelio Nath [facility] 09-05-2024 04:32-0500 Body temperature 98.24 [degF] Rogelio Nath [facility] 09-05-2024 04:32-0500 Diastolic blood pressure 72 mm[Hg] Rogelio Nath [facility] 09-05-2024 04:32-0500 Heart rate 104 /min Rogelio Nath [facility] 09-05-2024 04:32-0500 Mean blood pressure 90 mm[Hg] Rogelio Nath [facility] 09-05-2024 04:32-0500 Respiratory rate 16 /min Rogelio Nath [facility] 09-05-2024 04:32-0500 SaO2% (BldA) [Mass fraction] 98 % Rogelio Nath [facility] 09-05-2024 04:32-0500 Systolic blood pressure 127 mm[Hg] Rogelio Nath [facility] 09-05-2024 04:00-0500 Diastolic blood pressure 64 mm[Hg] Rogelio Nath [facility] 09-05-2024 04:00-0500 Heart rate 115 /min Rogelio Nath [facility] 09-05-2024 04:00-0500 Mean blood pressure 86 mm[Hg] Rogelio Nath [facility] 09-05-2024 04:00-0500 Systolic blood pressure 129 mm[Hg] Rogelio Nath [facility] 09-05-2024 03:06-0500 Body temperature 97.7 [degF] Rogelio Nath [facility] 09-05-2024 03:06-0500 Heart rate 128 /min Rogelio Nath [facility] 09-05-2024 03:06-0500 Respiratory rate 20 /min Rogelio Nath [facility] 09-05-2024 03:06-0500 SaO2% (BldA) [Mass fraction] 98 % Rogelio Nath [facility] 08-25-2024 12:21-0500 Body height 170.18 cm Darwincary Joneserwood POLITICAL WORKER Work Phone: [facility] 08-25-2024 12:21-0500 Body mass index (BMI) [Ratio] 39.6 kg/m2 Darwin Joneserwood POLITICAL WORKER Work Phone: [facility] 08-25-2024 12:21-0500 Body weight 114.75 kg Darwin Jonesermacy POLITICAL WORKER Work Phone: [facility] 08-25-2024 12:21-0500 Diastolic blood pressure 84 mm[Hg] Darwin Roberterwood POLITICAL WORKER Work Phone: [facility] 08-25-2024 12:21-0500 Heart rate 108 /min Darwin Roberterwood POLITICAL WORKER Work Phone: [facility] 08-25-2024 12:21-0500 Respiratory rate 18 /min Darwin Roberterwood POLITICAL WORKER Work Phone: [facility] 08-25-2024 12:21-0500 SaO2% (BldA) [Mass fraction] 98 % Darwin Easterwood POLITICAL WORKER Work Phone: [facility] 08-25-2024 12:21-0500 Systolic blood pressure 132 mm[Hg] Darwin Jones POLITICAL WORKER Work Phone: [facility] 08-23-2024 11:00-0500 Body mass index (BMI) [Ratio] 40.16 kg/m2 Brain Seamus DO Work Phone: [facility] 08-23-2024 11:00-0500 Body weight 116.3 kg Brain Seamus DO Work Phone: [facility] 08-23-2024 11:00-0500 Diastolic blood pressure 78 mm[Hg] Brain Seamus DO Work Phone: [facility] 08-23-2024 11:00-0500 Systolic blood pressure 120 mm[Hg] Brain Seamus DO Work Phone: [facility] 07-11-2024 13:09-0500 Body mass index (BMI) [Ratio] 38.97 kg/m2 Brain Seamus DO Work Phone: [facility] 07-11-2024 13:09-0500 Body weight 112.86 kg Brain Seamus DO Work Phone: [facility] 07-11-2024 13:09-0500 Diastolic blood pressure 76 mm[Hg] Brain Seamus DO Work Phone: [facility] 07-11-2024 13:09-0500 Systolic blood pressure 120 mm[Hg] Brain Seamus DO Work Phone: [facility] 06-28-2024 08:04-0500 Body weight Darwin Jones POLITICAL WORKER Work Phone: [facility] Comment on above: Not provided. 2024 14:13-0500 Diastolic blood pressure 78 mm[Hg] Hayden Reilly MD Work Phone: [facility] 2024 14:13-0500 Heart rate 88 /min Hayden Reilly MD Work Phone: [facility] 2024 14:13-0500 Systolic blood pressure 125 mm[Hg] Hayden Reilly MD Work Phone: [facility] 2024 13:18-0500 Body height 170.2 cm Hayden Reilly MD Work Phone: [facility] 06-12-2024 10:19-0400 Body mass index (BMI) [Ratio] 38.37 kg/m2 Brain Seamus DO Work Phone: [facility] 06-12-2024 10:19-0400 Body weight 111.13 kg Brain Seamus DO Work Phone: [facility] 06-12-2024 10:19-0400 Diastolic blood pressure 80 mm[Hg] Brain Seamus DO Work Phone: [facility] 06-12-2024 10:19-0400 Systolic blood pressure 122 mm[Hg] Brain Seamus DO Work Phone: [facility] 05-11-2024 11:04-0400 Body height 170.18 cm POLITICAL WORKER Darwin Easterwood Work Phone: [facility] 05-11-2024 11:04-0400 Body mass index (BMI) [Ratio] 38.2 kg/m2 POLITICAL WORKER Darwin Easterwood Work Phone: [facility] 05-11-2024 11:04-0400 Body temperature 97.8 [degF] POLITICAL WORKER Darwin Easterwood Work Phone: [facility] 05-11-2024 11:04-0400 Body weight 110.67 kg POLITICAL WORKER Darwin Easterwood Work Phone: [facility] 05-11-2024 11:04-0400 Diastolic blood pressure 74 mm[Hg] POLITICAL WORKER Darwin Easterwood Work Phone: [facility] 05-11-2024 11:04-0400 Heart rate 90 /min POLITICAL WORKER Darwin Robertermacy Work Phone: [facility] 05-11-2024 11:04-0400 Respiratory rate 20 /min POLITICAL WORKER Darwin Jonesermacy Work Phone: [facility] 05-11-2024 11:04-0400 SaO2% (BldA) [Mass fraction] 98 % POLITICAL WORKER Darwin Jonesermacy Work Phone: [facility] 05-11-2024 11:04-0400 Systolic blood pressure 126 mm[Hg] POLITICAL WORKER Darwin TOBESOFT Work Phone: [facility] 05-10-2024 13:50-0400 Body mass index (BMI) [Ratio] 38.39 kg/m2 Brain Seamus DO Work Phone: [facility] 05-10-2024 13:50-0400 Body weight 111.19 kg Brain Seamus DO Work Phone: [facility] 05-10-2024 13:50-0400 Diastolic blood pressure 76 mm[Hg] Brain Seamus DO Work Phone: [facility] 05-10-2024 13:50-0400 Systolic blood pressure 120 mm[Hg] Brain Seamus DO Work Phone: [facility] 04-20-2024 10:37-0400 Body mass index (BMI) [Ratio] 38.53 kg/m2 Brain Seamus DO Work Phone: [facility] 04-20-2024 10:37-0400 Body weight 111.58 kg Brain Seamus DO Work Phone: [facility] 04-20-2024 10:37-0400 Diastolic blood pressure 76 mm[Hg] Brain Seamus DO Work Phone: [facility] 04-20-2024 10:37-0400 Systolic blood pressure 122 mm[Hg] Brain Seamus DO Work Phone: [facility] 04-07-2024 09:42-0400 Body mass index (BMI) [Ratio] 38.86 kg/m2 [facility] Nurse [facility] 04-07-2024 09:42-0400 Body weight 112.55 kg [facility] Nurse [facility] 04-07-2024 09:42-0400 Diastolic blood pressure 70 mm[Hg] [facility] Nurse [facility] 04-07-2024 09:42-0400 Systolic blood pressure 120 mm[Hg] [facility] Nurse [facility] 03-18-2024 11:50-0400 Diastolic blood pressure 83 mm[Hg] [place] [facility] 03-18-2024 11:50-0400 Heart rate 75 /min Toan Steine [facility] 03-18-2024 11:50-0400 Mean blood pressure 97 mm[Hg] Toan Steine [facility] 03-18-2024 11:50-0400 Respiratory rate 16 /min [place]an [place] [facility] 03-18-2024 11:50-0400 SaO2% (BldA) [Mass fraction] 98 % [place] [facility] 03-18-2024 11:50-0400 Systolic blood pressure 126 mm[Hg] Toan Steine [facility] 03-18-2024 09:46-0400 Hourly Rounding Toan Steine [facility] 03-18-2024 09:11-0400 Hourly Rounding [place] [facility] 03-18-2024 08:10-0400 Body temperature 98.6 [degF] [place]an [place] [facility] 03-18-2024 08:10-0400 Diastolic blood pressure 91 mm[Hg] [place]an [place] [facility] 03-18-2024 08:10-0400 Heart rate 98 /min [place] [facility] 03-18-2024 08:10-0400 Hourly Rounding [place] [facility] 03-18-2024 08:10-0400 Respiratory rate 17 /min [place] [facility] 03-18-2024 08:10-0400 SaO2% (BldA) [Mass fraction] 98 % [place] [facility] 03-18-2024 08:10-0400 Systolic blood pressure 135 mm[Hg] [place] [facility] 01-25-2024 08:59-0400 Body height 170.18 cm POLITICAL WORKER Darwin Easterwood Work Phone: [facility] 01-25-2024 08:59-0400 Body mass index (BMI) [Ratio] 37.4 kg/m2 POLITICAL WORKER Darwin Easterwood Work Phone: [facility] 01-25-2024 08:59-0400 Body temperature 98 [degF] POLITICAL WORKER Darwin Easterwood Work Phone: [facility] 01-25-2024 08:59-0400 Body weight 108.4 kg POLITICAL WORKER Darwin Easterwood Work Phone: [facility] 01-25-2024 08:59-0400 Diastolic blood pressure 80 mm[Hg] POLITICAL WORKER Darwin Easterwood Work Phone: [facility] 01-25-2024 08:59-0400 Heart rate 98 /min POLITICAL WORKER Darwin Easterwood Work Phone: [facility] 01-25-2024 08:59-0400 Respiratory rate 20 /min POLITICAL WORKER Darwin Easterwood Work Phone: [facility] 01-25-2024 08:59-0400 SaO2% (BldA) [Mass fraction] 99 % POLITICAL WORKER Darwin Easterwood Work Phone: [facility] 01-25-2024 08:59-0400 Systolic blood pressure 122 mm[Hg] POLITICAL WORKER Darwin Easterwood Work Phone: [facility] 12-24-2023 09:56-0400 Body height 170.18 cm POLITICAL WORKER Darwin Easterwood Work Phone: [facility] 12-24-2023 09:56-0400 Body mass index (BMI) [Ratio] 37.7 kg/m2 POLITICAL WORKER Darwin Easterwood Work Phone: [facility] 12-24-2023 09:56-0400 Body temperature 97.6 [degF] POLITICAL WORKER Darwin Easterwood Work Phone: [facility] 12-24-2023 09:56-0400 Body weight 109.31 kg POLITICAL WORKER Darwin Easterwood Work Phone: [facility] 12-24-2023 09:56-0400 Diastolic blood pressure 84 mm[Hg] POLITICAL WORKER Darwin Easterwood Work Phone: [facility] 12-24-2023 09:56-0400 Heart rate 102 /min POLITICAL WORKER Darwin Easterwood Work Phone: [facility] 12-24-2023 09:56-0400 Respiratory rate 20 /min POLITICAL WORKER Darwin Easterwood Work Phone: [facility] 12-24-2023 09:56-0400 SaO2% (BldA) [Mass fraction] 98 % POLITICAL WORKER Darwin Easterwood Work Phone: [facility] 12-24-2023 09:56-0400 Systolic blood pressure 126 mm[Hg] POLITICAL WORKER Darwin Easterwood Work Phone: [facility] 11-25-2023 09:01-0400 Body height 170.18 cm POLITICAL WORKERAkilah Jonesermacy Work Phone: [facility] 11-25-2023 09:01-0400 Body mass index (BMI) [Ratio] 37.7 kg/m2 POLITICAL WORKERAkilah Jonesermacy Work Phone: [facility] 11-25-2023 09:01-0400 Body temperature 97 [degF] POLITICAL WORKERAkilah Jones Work Phone: [facility] 11-25-2023 09:01-0400 Body weight 109.31 kg POLITICAL WORKERAkilah Jones Work Phone: [facility] 11-25-2023 09:01-0400 Diastolic blood pressure 76 mm[Hg] POLITICAL WORKERAkilah Jonesermacy Work Phone: [facility] 11-25-2023 09:01-0400 Heart rate 95 /min POLITICAL WORKERAkilah Jones Work Phone: [facility] 11-25-2023 09:01-0400 Respiratory rate 20 /min POLITICAL WORKERAkilah Jones Work Phone: [facility] 11-25-2023 09:01-0400 SaO2% (BldA) [Mass fraction] 98 % POLITICAL WORKERAkilah Jonesermacy Work Phone: [facility] 11-25-2023 09:01-0400 Systolic blood pressure 120 mm[Hg] SHIRLEY Jonesermacy Work Phone: [facility] 11-18-2023 08:03-0400 Body weight 110.68 kg Ruby Whittington MD Work Phone: [facility] 11-18-2023 08:03-0400 Diastolic blood pressure 92 mm[Hg] Ruby Whittington MD Work Phone: [facility] 11-18-2023 08:03-0400 Heart rate 100 /min Ruby Whittington MD Work Phone: [facility] 11-18-2023 08:03-0400 Systolic blood pressure 132 mm[Hg] Ruby Whittington MD Work Phone: [facility] 10-20-2023 09:05-0500 Body height 170.18 cm POLITICAL WORKER Darwin Eastermacy Work Phone: [facility] 10-20-2023 09:05-0500 Body mass index (BMI) [Ratio] 38.3 kg/m2 POLITICAL WORKER Darwin Eastermacy Work Phone: [facility] 10-20-2023 09:05-0500 Body temperature 98 [degF] POLITICAL WORKER Darwin Eastermacy Work Phone: [facility] 10-20-2023 09:05-0500 Body weight 111.13 kg POLITICAL WORKER Darwin Eastermacy Work Phone: [facility] 10-20-2023 09:05-0500 Diastolic blood pressure 78 mm[Hg] POLITICAL WORKER Darwin Eastermacy Work Phone: [facility] 10-20-2023 09:05-0500 Heart rate 82 /min POLITICAL WORKER Darwin Eastermacy Work Phone: [facility] 10-20-2023 09:05-0500 Respiratory rate 20 /min POLITICAL WORKER Darwin Eastermacy Work Phone: [facility] 10-20-2023 09:05-0500 SaO2% (BldA) [Mass fraction] 98 % POLITICAL WORKER Darwin Eastermacy Work Phone: [facility] 10-20-2023 09:05-0500 Systolic blood pressure 124 mm[Hg] POLITICAL WORKER Darwin Easterwood Work Phone: [facility] 09-29-2023 10:41-0500 Blood Pressure Location [place] Pranav [facility] 09-29-2023 10:41-0500 Body temperature 98.24 [degF] [place] [facility] 09-29-2023 10:41-0500 Diastolic blood pressure 78 mm[Hg] [place] [facility] 09-29-2023 10:41-0500 Heart rate 95 /min [place] [facility] 09-29-2023 10:41-0500 SaO2% (BldA) [Mass fraction] 97 % [place] [facility] 09-29-2023 10:41-0500 Systolic blood pressure 122 mm[Hg] [place] [facility] 09-21-2023 09:00-0500 Body height 170.18 cm [employer] Other [employer] Other 09-21-2023 09:00-0500 Body mass index (BMI) [Ratio] 38.37 kg/m2 [employer] Other [employer] Other 09-21-2023 09:00-0500 Body temperature 98 [degF] [employer] Other [employer] Other 09-21-2023 09:00-0500 Body weight 111.13 kg [employer] Other [employer] Other 09-21-2023 09:00-0500 Diastolic blood pressure 84 mm[Hg] [employer] Other [employer] Other 09-21-2023 09:00-0500 Respiratory rate 20 /min [employer] Other [employer] Other 09-21-2023 09:00-0500 SaO2% (BldA) [Mass fraction] 98 % Darwin Easterwood Other [employer] Other 09-21-2023 09:00-0500 Systolic blood pressure 126 mm[Hg] Darwin Easterwood Other [employer] Other 08-25-2023 09:30-0500 Body height 170.18 cm Darwin Easterwood Other [facility] 08-25-2023 09:30-0500 Body mass index (BMI) [Ratio] 39.46 kg/m2 Darwin Easterwood Other [employer] Other 08-25-2023 09:30-0500 Body temperature 97.6 [degF] Darwin Easterwood Other [employer] Other 08-25-2023 09:30-0500 Body weight 114.31 kg Darwin Easterwood Other [employer] Other 08-25-2023 09:30-0500 Body weight 114.3 kg POLITICAL WORKER Darwin Easterwood Work Phone: [facility] 08-25-2023 09:30-0500 Diastolic blood pressure 80 mm[Hg] Darwin Easterwood Other [facility] 08-25-2023 09:30-0500 Respiratory rate 20 /min Darwin Easterwood Other [employer] Other 08-25-2023 09:30-0500 SaO2% (BldA) [Mass fraction] 98 % Darwin Easterwood Other [employer] Other 08-25-2023 09:30-0500 Systolic blood pressure 120 mm[Hg] Darwin Easterwood Other [facility] 07-23-2023 09:30-0500 Body height 170.18 cm POLITICAL WORKER Darwin Easterwood Work Phone: [facility] 07-23-2023 09:30-0500 Body weight 116.57 kg POLITICAL WORKER Darwin Easterwood Work Phone: [facility] 07-23-2023 09:30-0500 Diastolic blood pressure 80 mm[Hg] POLITICAL WORKER Darwin Easterwood Work Phone: [facility] 07-23-2023 09:30-0500 Systolic blood pressure 118 mm[Hg] POLITICAL WORKER Darwin Easterwood Work Phone: [facility] 06-23-2023 09:30-0500 Body height 170.18 cm Darwin Easterwood Other [employer] Other 06-23-2023 09:30-0500 Body mass index (BMI) [Ratio] 40.4 kg/m2 Darwin Easterwood Other [employer] Other 06-23-2023 09:30-0500 Body temperature 97.4 [degF] Darwin Easterwood Other [employer] Other 06-23-2023 09:30-0500 Body weight 117.03 kg Darwin Easterwood Other [employer] Other 06-23-2023 09:30-0500 Diastolic blood pressure 78 mm[Hg] Darwin Easterwood Other [employer] Other 06-23-2023 09:30-0500 Respiratory rate 20 /min Darwin Easterwood Other [employer] Other 06-23-2023 09:30-0500 SaO2% (BldA) [Mass fraction] 98 % Darwin Easterwood Other [employer] Other 06-23-2023 09:30-0500 Systolic blood pressure 120 mm[Hg] Darwin Easterwood Other [employer] Other 06-08-2023 14:00-0400 Body temperature 97.2 [degF] Francy Gan PA-C Work Phone: [facility] 05-26-2023 10:30-0400 Body height 170.18 cm Darwin Roberterwood Other [employer] Other 05-26-2023 10:30-0400 Body mass index (BMI) [Ratio] 41.5 kg/m2 Darwin Easterwood Other [employer] Other 05-26-2023 10:30-0400 Body temperature 98.4 [degF] Darwin Easterwood Other [employer] Other 05-26-2023 10:30-0400 Body weight 120.2 kg Darwin Easterwood Other [employer] Other 05-26-2023 10:30-0400 Diastolic blood pressure 70 mm[Hg] Darwin Easterwood Other [employer] Other 05-26-2023 10:30-0400 Respiratory rate 20 /min Darwin Easterwood Other [employer] Other 05-26-2023 10:30-0400 SaO2% (BldA) [Mass fraction] 97 % Darwin Easterwood Other [employer] Other 05-26-2023 10:30-0400 Systolic blood pressure 112 mm[Hg] Darwin Easterwood Other [employer] Other 04-28-2023 09:15-0400 Body height 170.18 cm Darwin Easterwood Other [employer] Other 04-28-2023 09:15-0400 Body mass index (BMI) [Ratio] 41.34 kg/m2 Darwin Roberterwood Other [employer] Other 04-28-2023 09:15-0400 Body temperature 97.2 [degF] Darwin Roberterwood Other [employer] Other 04-28-2023 09:15-0400 Body weight 119.75 kg Darwin Robertermacy Other [employer] Other 04-28-2023 09:15-0400 Diastolic blood pressure 82 mm[Hg] Darwin Easterwood Other [employer] Other 04-28-2023 09:15-0400 Respiratory rate 20 /min Darwin Easterwood Other [employer] Other 04-28-2023 09:15-0400 SaO2% (BldA) [Mass fraction] 97 % Darwin Easterwood Other [employer] Other 04-28-2023 09:15-0400 Systolic blood pressure 120 mm[Hg] Darwin Easterwood Other [employer] Other 04-16-2023 11:00-0400 Body height 170.18 cm Darwin Easterwood Other [employer] Other 04-16-2023 11:00-0400 Body mass index (BMI) [Ratio] 41.03 kg/m2 Darwin Easterwood Other [employer] Other 04-16-2023 11:00-0400 Body temperature 97.8 [degF] Darwin Eastermacy Other [employer] Other 04-16-2023 11:00-0400 Body weight 118.84 kg Darwin Easterwood Other [employer] Other 04-16-2023 11:00-0400 Diastolic blood pressure 80 mm[Hg] Darwin Easterwood Other [employer] Other 04-16-2023 11:00-0400 Respiratory rate 20 /min Darwin Easterwood Other [employer] Other 04-16-2023 11:00-0400 SaO2% (BldA) [Mass fraction] 98 % Darwni Easterwood Other [employer] Other 04-16-2023 11:00-0400 Systolic blood pressure 120 mm[Hg] Darwin Easterwood Other [employer] Other 03-22-2023 22:51-0400 Diastolic blood pressure 74 mm[Hg] Annan Dokken [facility] 03-22-2023 22:51-0400 Heart rate 80 /min Annaakilah Dokken [facility] 03-22-2023 22:51-0400 Mean blood pressure 92 mm[Hg] Kaylinn Dokken [facility] 03-22-2023 22:51-0400 Respiratory rate 16 /min Kaylinn Dokken [facility] 03-22-2023 22:51-0400 SaO2% (BldA) [Mass fraction] 98 % Kaylinn Dokken [facility] 03-22-2023 22:51-0400 Systolic blood pressure 128 mm[Hg] Kaylinn Dokken [facility] 03-22-2023 21:24-0400 Heart rate 76 /min Kaylinn Dokken [facility] 03-22-2023 21:24-0400 Respiratory rate 16 /min Kaylinn Dokken [facility] 03-22-2023 21:24-0400 SaO2% (BldA) [Mass fraction] 97 % Kaylinn Dokken [facility] 03-22-2023 19:54-0400 Body temperature 98.06 [degF] Kaylinn Dokken [facility] 03-22-2023 19:54-0400 Diastolic blood pressure 89 mm[Hg] Kaylinn Dokken [facility] 03-22-2023 19:54-0400 Heart rate 81 /min Kaylinn Dokken [facility] 03-22-2023 19:54-0400 Respiratory rate 18 /min Kaylinn Dokken [facility] 03-22-2023 19:54-0400 SaO2% (BldA) [Mass fraction] 99 % Gabriel Curtis [facility] 03-22-2023 19:54-0400 Systolic blood pressure 138 mm[Hg] Gabriel Curtis [facility] 03-22-2023 15:18-0400 Body height 170.18 cm POLITICAL WORKER Darwin Eastermacy Work Phone: [facility] 03-22-2023 15:18-0400 Body temperature 98.2 [degF] POLITICAL WORKER Darwin Easterwood Work Phone: [facility] 03-22-2023 15:18-0400 Body weight 120.5 kg POLITICAL WORKER Darwin Easterwood Work Phone: [facility] 03-22-2023 15:18-0400 Diastolic blood pressure 74 mm[Hg] POLITICAL WORKER Darwin Easterwood Work Phone: [facility] 03-22-2023 15:18-0400 Heart rate 92 /min POLITICAL WORKER Darwin Easterwood Work Phone: [facility] 03-22-2023 15:18-0400 Respiratory rate 20 /min POLITICAL WORKER Darwin Easterwood Work Phone: [facility] 03-22-2023 15:18-0400 SaO2% (BldA) [Mass fraction] 97 % POLITICAL WORKER Darwin Easterwood Work Phone: [facility] 03-22-2023 15:18-0400 Systolic blood pressure 175 mm[Hg] POLITICAL WORKER Darwin Easterwood Work Phone: [facility] 10-05-2022 09:00-0500 Body height 170.18 cm Ofelia Hester Other [employer] Other 10-05-2022 09:00-0500 Body mass index (BMI) [Ratio] 37.21 kg/m2 Ofelia Hester Other [employer] Other 10-05-2022 09:00-0500 Body weight 107.78 kg Ofelia Missler Other [employer] Other 10-05-2022 09:00-0500 Diastolic blood pressure 45 mm[Hg] Ofelia Missler Other [employer] Other 10-05-2022 09:00-0500 Respiratory rate 18 /min Ofelia Missler Other [employer] Other 10-05-2022 09:00-0500 SaO2% (BldA) [Mass fraction] 97 % Ofelia Missler Other [employer] Other 10-05-2022 09:00-0500 Systolic blood pressure 100 mm[Hg] Ofelia Missler Other [employer] Other 09-02-2022 11:30-0500 Body height 170.18 cm Ofelia Missler Other [employer] Other 09-02-2022 11:30-0500 Body mass index (BMI) [Ratio] 38.04 kg/m2 Ofelia Missler Other [employer] Other 09-02-2022 11:30-0500 Body weight 110.18 kg Ofelia Missler Other [employer] Other 09-02-2022 11:30-0500 Diastolic blood pressure 79 mm[Hg] Ofelia Missler Other [employer] Other 09-02-2022 11:30-0500 Respiratory rate 18 /min Ofelia Missler Other [employer] Other 09-02-2022 11:30-0500 SaO2% (BldA) [Mass fraction] 96 % Ofelia Missler Other [employer] Other 09-02-2022 11:30-0500 Systolic blood pressure 119 mm[Hg] Ofelia Missler Other [employer] Other 08-25-2022 14:00-0500 Body height 170.18 cm Lilly Fitt Other [employer] Other 08-25-2022 14:00-0500 Body mass index (BMI) [Ratio] 38.01 kg/m2 Lilly Fitt Other [employer] Other 08-25-2022 14:00-0500 Body weight 110.09 kg Lilly Fitt Other [employer] Other 07-31-2022 09:45-0500 Body height 170.18 cm Ofelia Missler Other [employer] Other 07-31-2022 09:45-0500 Body mass index (BMI) [Ratio] 38.2 kg/m2 Ofelia Missler Other [employer] Other 07-31-2022 09:45-0500 Body weight 110.63 kg Ofelia Missler Other [employer] Other 07-31-2022 09:45-0500 Diastolic blood pressure 78 mm[Hg] Ofelia Missler Other [employer] Other 07-31-2022 09:45-0500 Respiratory rate 18 /min Ofelia Missler Other [employer] Other 07-31-2022 09:45-0500 SaO2% (BldA) [Mass fraction] 96 % Ofelia Missler Other [employer] Other 07-31-2022 09:45-0500 Systolic blood pressure 135 mm[Hg] Ofelia Missler Other [employer] Other 07-14-2022 08:49-0500 Body height 170.5 cm Ruby Whittington MD Work Phone: [facility] 07-14-2022 08:49-0500 Body weight 111.58 kg Ruby Whittington MD Work Phone: [facility] 07-14-2022 08:49-0500 Diastolic blood pressure 73 mm[Hg] Ruby Whittington MD Work Phone: [facility] 07-14-2022 08:49-0500 Heart rate 92 /min Ruby Whittington MD Work Phone: [facility] 07-14-2022 08:49-0500 Systolic blood pressure 140 mm[Hg] Ruby Whittington MD Work Phone: [facility] 06-17-2022 15:45-0400 Body height 170.18 cm Ofelia Missler Other [employer] Other 06-17-2022 15:45-0400 Body mass index (BMI) [Ratio] 38.99 kg/m2 Ofelia Missler Other [employer] Other 06-17-2022 15:45-0400 Body weight 112.95 kg Ofelia Missler Other [employer] Other 06-17-2022 15:45-0400 Diastolic blood pressure 90 mm[Hg] Ofelia Missler Other [employer] Other 06-17-2022 15:45-0400 Respiratory rate 18 /min Ofelia Missler Other [employer] Other 06-17-2022 15:45-0400 SaO2% (BldA) [Mass fraction] 96 % Ofelia Missler Other [employer] Other 06-17-2022 15:45-0400 Systolic blood pressure 140 mm[Hg] Ofelia Missler Other [employer] Other 06-04-2022 13:00-0400 Body height 170.18 cm Sima Ross Other [employer] Other 06-04-2022 13:00-0400 Body mass index (BMI) [Ratio] 38.37 kg/m2 Sima Ross Other [employer] Other 06-04-2022 13:00-0400 Body temperature 98.6 [degF] Sima Ross Other [employer] Other 06-04-2022 13:00-0400 Body weight 111.13 kg Sima Ross Other [employer] Other 06-04-2022 13:00-0400 Diastolic blood pressure 83 mm[Hg] Sima Ross Other [employer] Other 06-04-2022 13:00-0400 Respiratory rate 18 /min Sima Ross Other [employer] Other 06-04-2022 13:00-0400 SaO2% (BldA) [Mass fraction] 99 % Sima Ross Other [employer] Other 06-04-2022 13:00-0400 Systolic blood pressure 124 mm[Hg] Sima Ross Other [employer] Other 05-27-2022 12:15-0400 Body height 170.18 cm Lilly Fitt Other [employer] Other 05-18-2022 09:30-0400 Body height 170.18 cm Ofelia Missler Other [employer] Other 05-18-2022 09:30-0400 Body mass index (BMI) [Ratio] 39.37 kg/m2 Ofelia Missler Other [employer] Other 05-18-2022 09:30-0400 Body temperature 98.1 [degF] Ofelia Missler Other [employer] Other 05-18-2022 09:30-0400 Body weight 114.04 kg Ofelia Missler Other [employer] Other 05-18-2022 09:30-0400 Diastolic blood pressure 80 mm[Hg] Ofelia Missler Other [employer] Other 05-18-2022 09:30-0400 Respiratory rate 18 /min Ofelia Missler Other [employer] Other 05-18-2022 09:30-0400 SaO2% (BldA) [Mass fraction] 99 % Ofelia Missler Other [employer] Other 05-18-2022 09:30-0400 Systolic blood pressure 115 mm[Hg] Ofelia Hester Other [employer] Other 04-17-2022 09:30-0400 Body height 170.18 cm Darwin Easterwood Other [employer] Other 04-17-2022 09:30-0400 Body mass index (BMI) [Ratio] 39.15 kg/m2 Darwin Easterwood Other [employer] Other 04-17-2022 09:30-0400 Body temperature 96.9 [degF] Darwin Easterwood Other [employer] Other 04-17-2022 09:30-0400 Body weight 113.4 kg Darwin Easterwood Other [employer] Other 04-17-2022 09:30-0400 Diastolic blood pressure 82 mm[Hg] Darwin Easterwood Other [employer] Other 04-17-2022 09:30-0400 Respiratory rate 20 /min Darwin Easterwood Other [employer] Other 04-17-2022 09:30-0400 SaO2% (BldA) [Mass fraction] 99 % Darwin Easterwood Other [employer] Other 04-17-2022 09:30-0400 Systolic blood pressure 124 mm[Hg] Darwin Easterwood Other [employer] Other 02-18-2022 21:41-0400 Diastolic blood pressure 88 mm[Hg] Fazal Corrales [facility] 02-18-2022 21:41-0400 Heart rate 84 /min Fazal Antoni [facility] 02-18-2022 21:41-0400 Mean blood pressure 101 mm[Hg] Fazal Antoni [facility] 02-18-2022 21:41-0400 Respiratory rate 17 /min Fazal Antoni [facility] 02-18-2022 21:41-0400 SaO2% (BldA) [Mass fraction] 98 % Darwin JonesITADSecurity Other [employer] Other 02-18-2022 21:41-0400 Systolic blood pressure 126 mm[Hg] Fazal Antoni [facility] 02-18-2022 20:42-0400 gluc 106 mg/dL Fazal Antoni [facility] 02-18-2022 20:42-0400 gluc Fazal Antoni [facility] 02-18-2022 20:33-0400 Body temperature 98.06 [degF] Fazal Antoni [facility] 02-18-2022 20:33-0400 Diastolic blood pressure 99 mm[Hg] Fazal Antoni [facility] 02-18-2022 20:33-0400 Heart rate 99 /min Fazal Antoni [facility] 02-18-2022 20:33-0400 Respiratory rate 18 /min Fazal Antoni [facility] 02-18-2022 20:33-0400 Systolic blood pressure 153 mm[Hg] Fazal Antoni [facility] 02-18-2022 10:00-0400 Body height 170.18 cm Darwin Easterwood Other [employer] Other 02-18-2022 10:00-0400 Body mass index (BMI) [Ratio] 38.52 kg/m2 Darwin Easterwood Other [employer] Other 02-18-2022 10:00-0400 Body temperature 97 [degF] Darwin Easterwood Other [employer] Other 02-18-2022 10:00-0400 Body weight 111.59 kg Darwin Easterwood Other [employer] Other 02-18-2022 10:00-0400 Diastolic blood pressure 82 mm[Hg] Darwin Easterwood Other [employer] Other 02-18-2022 10:00-0400 Respiratory rate 20 /min Darwin Easterwood Other [employer] Other 02-18-2022 10:00-0400 Systolic blood pressure 118 mm[Hg] Darwin Easterwood Other [employer] Other 02-11-2022 12:00-0400 Body height 170.18 cm Darwin Easterwood Other [employer] Other 02-11-2022 12:00-0400 Body mass index (BMI) [Ratio] 37.9 kg/m2 Darwin Easterwood Other [employer] Other 02-11-2022 12:00-0400 Body temperature 97.2 [degF] Darwin Easterwood Other [employer] Other 02-11-2022 12:00-0400 Body weight 109.77 kg Darwin Jones Other [employer] Other 02-11-2022 12:00-0400 Diastolic blood pressure 88 mm[Hg] Darwin Jonesermacy Other [employer] Other 02-11-2022 12:00-0400 Respiratory rate 20 /min Darwin Jones Other [employer] Other 02-11-2022 12:00-0400 SaO2% (BldA) [Mass fraction] 98 % Darwin Jones Other [employer] Other 02-11-2022 12:00-0400 Systolic blood pressure 126 mm[Hg] Darwin [employer] Other [employer] Other 09-03-2021 10:02-0500 Diastolic blood pressure 86 mm[Hg] Unknown Unknown [employer] 600 DO Work Phone: 09-03-2021 10:02-0500 Systolic blood pressure 110 mm[Hg] Unknown Unknown [employer] 600 DO Work Phone: 09-03-2021 09:55-0500 Body height 170.18 cm Unknown Unknown [employer] [employer] 600 DO Work Phone: 09-03-2021 09:55-0500 Body mass index (BMI) [Ratio] 32.36 kg/m2 Unknown Unknown [employer] 600 DO Work Phone: 09-03-2021 09:55-0500 Body surface area Derived from formula 2.05 m2 Unknown Unknown [employer] 600 DO Work Phone: 09-03-2021 09:55-0500 Body weight 93.71 kg Unknown Unknown [facility] 600 DO Work Phone: 09-03-2021 09:55-0500 Diastolic blood pressure 84 mm[Hg] Unknown Unknown [facility] 600 DO Work Phone: 09-03-2021 09:55-0500 Heart rate 72 /min Unknown Unknown [facility] 600 DO Work Phone: 09-03-2021 09:55-0500 Systolic blood pressure 122 mm[Hg] Unknown Unknown [facility] 600 DO Work Phone: Encounters Encounter Date Encounter Type Care Provider Facility Start: 10-10-2024 End: 10-10-2024 Bamboo flowsheet Brain Seamus DO Work Phone: [facility] Start: 10-10-2024 End: 10-10-2024 Bamboo flowsheet Brain Seamus DO Work Phone: [facility] Start: 10-10-2024 End: 10-10-2024 flow sheet Brain Seamus DO Work Phone: [facility] Comment on above: Third trimester preg gwen; 36 weeks gestation of ; Excessive growth affecting management of , antepartum, single or unspecified fetus Start: 10-10-2024 End: 10-10-2024 ambulatory BRAIN SEAMUS Not Available Start: 10-05-2024 End: 10-05-2024 flow sheet Mya [...] 09-21-2024 End: 09-21-2024 Patient encounter procedure Darwin Jonesjoey POLITICAL WORKER Work Phone: [facility] [place] Work Phone: Start: 09-21-2024 End: 09-21-2024 ambulatory Darwin Jones POLITICAL WORKER Work Phone: [facility] Work Phone: Start: 09-19-2024 End: [...] End: 09-14-2024 Patient encounter procedure Darwin Jones POLITICAL WORKER Work Phone: [facility] Work Phone: Start: 09-14-2024 End: 09-14-2024 ambulatory Darwin Jones POLITICAL WORKER Work Phone: [facility] Work Phone: Start: 09-11-2024 End: [...] Start: 09-07-2024 Non-patient / Non-visit Darwin corral POLITICAL WORKER Work Phone: [facility] [place] Work Phone: Start: 09-06-2024 End: 09-06-2024 Emergency department patient visit Flash Franco [facility] Start: 09-05-2024 ambulatory Rogelio Nath [facility] Start: 09-05-2024 End: 09-05-2024 ambulatory Rogelio Nath [facility] Start: 09-05-2024 Emergency department patient visit DO Gabriel Curtis [facility] Start: 09-05-2024 End: 09-05-2024 Observation Rogelio Nath [facility] Start: 08-25-2024 End: 08-25-2024 Clinisync Result Encounter Brain Seamus DO Work Phone: [facility] Unsolicited Start: 08-25-2024 End: 08-25-2024 Clinisync Result Encounter Brain Seamus DO Work Phone: [facility] Unsolicited Start: 08-25-2024 End: 08-25-2024 ambulatory Darwin Jones POLITICAL WORKER Work Phone: [facility] Work Phone: Start: 08-25-2024 End: 08-25-2024 Patient encounter procedure Darwin Jones POLITICAL WORKER [facility] Phone[facility] Work Phone: Start: 08-23-2024 End: [...] in Start: 08-23-2024 End: 08-23-2024 ambulatory BRAIN [place] Not Available Start: 08-02-2024 End: 08-02-2024 ambulatory DARCY ENRIQUEZ [facility] Start: 07-31-2024 End: 07-31-2024 Patient encounter procedure Darwin Jones POLITICAL WORKER Work Phone: [facility] [place] Work Phone: Start: 07-31-2024 End: 07-31-2024 ambulatory Brain Seamus Facility:[facility] Comment on above: History of pericardi tis (Primary Dx); Mild concentric left ventricular hypertrophy (LVH); 25 weeks gestation of Start: 07-27-2024 End: 07-27-2024 ambulatory NO PCP NO PCP [facility] Start: 07-11-2024 End: 07-11-[address] DO Work Phone: [facility] Comment on above: 22 weeks gestation o f ; Second trimester ; Nausea and vomiting during ; Diabetes mellitus screening Start: 06-28-2024 End: 06-28-2024 Patient encounter procedure Darwin Jones POLITICAL WORKER Work Phone: [facility] [place] Work Phone: Start: 06-28-2024 End: 06-28-2024 ambulatory Darwin Jones POLITICAL WORKER Work Phone: [facility] Work Phone: Start: 2024 End: 2024 Office consultation new/estab patient 60 min Hayden Reilly MD Work Phone: [facility] [place] Comment on above: 20 weeks gestation o f (Primary Dx); Tiffani's disease; 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; Hx of preeclampsia, prior , currently ; Elevated BP without diagnosis of hypertension; History of pericarditis; with history of section, antepartum; History of macrosomia in in prior , currently ; Obesity affecting , antepartum, unspecified obesity type; Depression affecting Start: 2024 End: 2024 ambulatory BRAIN R [facility] Start: 06-22-2024 End: 06-22-2024 Patient encounter procedure Darwin Yasir POLITICAL WORKER Work Phone: [facility] [place] Work Phone: Start: 06-22-2024 End: 06-22-2024 ambulatory Darwincary Jones POLITICAL WORKER Work Phone: [facility] Work Phone: Start: 06-21-2024 End: 06-21-2024 Chart abstracting Hayden Reilly MD Work Phone: [facility] Start: 06-12-2024 End: 06-12-2024 Bamboo [...] Start: 05-24-2024 End: 05-24-2024 Patient encounter procedure POLITICAL WORKER Darwin Jones Work Phone: [facility] [place] Work Phone: Start: 05-24-2024 End: 05-24-2024 ambulatory POLITICAL WORKER Darwin Anaya Robertermacy Work Phone: [facility] Work Phone: Start: 05-11-2024 End: 05-11-2024 ambulatory POLITICAL WORKER Darwin Jones Work Phone: [facility] Work Phone: Start: 05-11-2024 End: 05-11-2024 Encounter for general adult medical examination without abnormal findings SHIRLEY Jones Work Phone: [facility] Start: 05-11-2024 End: 05-11-2024 Patient encounter procedure SHIRLEY Jones Work Phone: [facility] [place] Work Phone: Start: 05-10-2024 End: 05-10-2024 Bamboo [...] 04-06-2024 Departed Referred SHIRLEY Jones Work Phone: [facility] Start: 04-06-2024 End: 04-06-2024 ambulatory SHIRLEY Jones Work Phone: [facility] Work Phone: Start: 03-21-2024 End: 03-21-2024 ambulatory BRAIN SEAMUS Not Available Start: 03-18-2024 End: 03-18-2024 Emergency department patient visit [place] [facility] Start: 02-24-2024 End: 02-24-2024 Patient encounter procedure SHIRLEY Jones Work Phone: [facility] Work Phone: Start: 02-24-2024 End: 02-24-2024 ambulatory POLITICAL WORKER Darwin Anaya Easterwood Work Phone: [facility] Work Phone: Start: 01-25-2024 End: 01-25-2024 ambulatory POLITICAL WORKER Darwin Jaclyn Easterwood Work Phone: [facility] Work Phone: Start: 01-25-2024 End: 01-25-2024 Patient encounter procedure POLITICAL WORKER Darwin Easterwood Work Phone: [facility] Work Phone: Start: 01-24-2024 End: 01-24-2024 Patient encounter procedure POLITICAL WORKER Darwin Easterwood Work Phone: [facility] [place] Work Phone: Start: 01-24-2024 End: 01-24-2024 ambulatory POLITICAL WORKER Darwin Anaya Easterwood Work Phone: [facility] Work Phone: Start: 12-27-2023 End: 12-27-2023 Patient encounter procedure POLITICAL WORKER Darwin Joneserwood Work Phone: [facility] [place] Work Phone: Start: 12-27-2023 End: 12-27-2023 ambulatory POLITICAL WORKER Darwin Jaclyn Easterwood Work Phone: [facility] Work Phone: Start: 12-24-2023 End: 12-24-2023 ambulatory POLITICAL WORKER Darwin Jaclyn Easterwood Work Phone: [facility] Work Phone: Start: 12-24-2023 End: 12-24-2023 Patient encounter procedure POLITICAL WORKER Darwin Easterwood Work Phone: [facility] Work Phone: Start: 11-30-2023 End: 11-30-2023 Patient encounter procedure SHIRLEY Jones Work Phone: [facility] [place] Work Phone: Start: 11-30-2023 End: 11-30-2023 ambulatory POLITICAL WORKER Darwin Jones Work Phone: [facility] Work Phone: Start: 11-25-2023 End: 11-25-2023 ambulatory POLITICAL WORKER Darwin Jones Work Phone: [facility] Work Phone: Start: 11-25-2023 End: 11-25-2023 Patient encounter procedure SHIRLEY Jones Work Phone: [facility] Work Phone: Start: 11-18-2023 End: 11-19-2023 ambulatory RUBY WHITTINGTON Facility:[facility] Start: 11-18-2023 End: 11-18-2023 Patient encounter procedure Ruby Whittington MD Work Phone: Endocrinology Comment on above: 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); Class 2 obesity; Irregular menstruation, unspecified; Female infertility; Calculus of kidney Start: 11-01-2023 End: 11-01-2023 Patient encounter procedure POLITICAL WORKER Darwin Jones Work Phone: [facility] [place] Work Phone: Start: 11-01-2023 End: 11-01-2023 ambulatory POLITICAL WORKER Darwin Jones Work Phone: [facility] Work Phone: Start: 10-20-2023 End: 10-20-2023 Patient encounter procedure POLITICAL WORKER Darwin Jones Work Phone: [facility] [place] Work Phone: Start: 10-01-2023 End: 10-01-2023 ambulatory POLITICAL WORKER Darwin Jones Work Phone: [facility] Work Phone: Start: 10-01-2023 End: 10-01-2023 Patient encounter procedure POLITICAL WORKER Darwin Jones Work Phone: [facility] [place] Work Phone: Start: 09-29-2023 End: 09-29-2023 ambulatory Tyrone Rock Facility:[facility] Start: 09-29-2023 End: 09-29-2023 Patient encounter procedure Tyrone Rock [facility] Start: 09-21-2023 End: 09-21-2023 ambulatory Darwin Jones Other [employer] Other Start: 09-21-2023 Office outpatient vi sit 15 minutes Darwincary Joneserwood [facility] [place] Start: 08-30-2023 Patient encounter procedure POLITICAL WORKER Darwin Jones Work Phone: [facility]- Start: 08-25-2023 End: 08-25-2023 ambulatory Darwincary Joneserwood Other [employer] Other Start: 08-25-2023 Follow-up encounter Darwincary Larawood [facility] [place] Start: 08-25-2023 End: 08-25-2023 Patient encounter procedure POLITICAL WORKER Darwin Roberterwood Work Phone: [facility] [place] Work Phone: Start: 07-23-2023 End: 07-23-2023 Patient encounter procedure POLITICAL WORKER Darwin Roberterwood Work Phone: [facility] [place] Work Phone: Start: 07-16-2023 Telephone encounter Ruby sneed MD Work Phone: Endocrinology Comment on above: Appointment Start: 06-23-2023 End: 06-23-2023 ambulatory Darwin Easterwood Other [employer] Other Start: 06-23-2023 Office outpatient vi sit 15 minutes Darwin Easterwood [facility] Start: 06-08-2023 End: 06-08-2023 ambulatory FRANCY GAN Facility:[facility] Start: 06-08-2023 End: 06-08-2023 Patient encounter procedure Francy Gan PA-C Work Phone: Otolaryngology Comment on above: Dysphagia, unspecifi ed type (Primary Dx); LPRD (laryngopharyngeal reflux disease) Start: 05-26-2023 End: 05-26-2023 ambulatory Darwin Easterwood Other [employer] Other Start: 05-26-2023 Office outpatient vi sit 25 minutes Darwin Easterwood [facility] Start: 05-06-2023 End: 05-06-2023 ambulatory POLITICAL WORKER Darwin Anaya Easterwood Work Phone: [facility] Work Phone: Start: 05-06-2023 End: 05-06-2023 Patient encounter procedure POLITICAL WORKER Darwin Easterwood Work Phone: [facility] [place] Work Phone: Start: 04-28-2023 End: 04-28-2023 ambulatory Darwin Easterwood Other [employer] Other Start: 04-28-2023 Office outpatient vi sit 40 minutes Darwin Easterwood [facility] Start: 04-16-2023 End: 04-16-2023 ambulatory Darwin Easterwood Other [facility] Other Start: 04-16-2023 Encounter for genera l adult medical examination without abnormal findings [facility] Start: 04-16-2023 Periodic preventive med est patient 18-39 yrs Darwin Jones [facility] Start: 04-08-2023 End: 04-08-2023 ambulatory POLITICAL WORKER Darwin Jones Work Phone: [facility] Work Phone: Start: 04-08-2023 End: 04-08-2023 Departed Referred SHIRLEY Jones Work Phone: [facility]-Employee Benefit Screening Start: 03-22-2023 End: 03-22-2023 Emergency department patient visit Gabriel Curtis [facility] Start: 03-22-2023 End: 03-22-2023 Emergency department patient visit POLITICAL WORKERAkilah Jones Work Phone: [facility] Work Phone: Start: 02-28-2023 End: 02-28-2023 Departed Referred SHIRLEY Jones Work Phone: [facility]Employee Benefit Screening Start: 02-28-2023 End: 02-28-2023 ambulatory POLITICAL WORKER Darwin Jones Work Phone: [facility] Work Phone: Start: 02-28-2023 End: 02-28-2023 Patient encounter procedure POLITICAL WORKERAkilah Jones Work Phone: [facility] [address] Work Phone: Start: 12-10-2022 End: 12-10-2022 ambulatory POLITICAL WORKER Darwin Jones Work Phone: [facility] Work Phone: Start: 12-10-2022 End: 12-10-2022 Patient encounter procedure POLITICAL WORKER Darwin Jones Work Phone: [facility] [place] Work Phone: Start: 12-09-2022 End: 12-09-[address] NONE LISTED REQUEST Facility: Start: 12-08-2022 End: 12-08-2022 ambulatory Ofelia Hester Other [employer] Other Start: 12-08-2022 Encounter by ruben limon Ofelia Hester [facility] Start: 10-22-2022 End: 10-22-2022 ambulatory Lilly Ti Other [employer] Other Start: 10-22-2022 Telephone encounter Lilly Luke [facility] Start: 10-16-2022 End: 10-16-2022 ambulatory POLITICAL WORKER Darwin Anaya Yasir Work Phone: [facility] Work Phone: Start: 10-16-2022 End: 10-16-2022 Patient encounter procedure POLITICAL WORKER Darwin Jones Work Phone: [facility] [place] Work Phone: Start: 10-15-2022 End: 10-15-2022 ambulatory Ofelia Hester Other [employer] Other Start: 10-15-2022 Telephone encounter Ofelia Hester [facility] Start: 10-05-2022 Registered Recurring SHIRLEY rOosco Janewood Work Phone: [facility]Weight Management Work Phone: Start: 10-05-2022 ([facility]NF/U) [facility] Start: 10-05-2022 End: 10-05-2022 ambulatory Ofelia Missler Other [employer] Other Start: 09-28-2022 ambulatory Ruby Whittington MD Work Phone: Endocrinology Comment on above: Synthroid Start: 09-02-2022 [facility] Weight Management f/u [facility] Start: 09-02-2022 End: 09-02-2022 ambulatory Ofelia Missler Other [employer] Other Start: 08-25-2022 [facility] PHUONG joy Provider Lilly Luke [facility] Start: 08-25-2022 End: 08-25-2022 ambulatory Lilly Luke Other [employer] Other Start: 07-31-2022 ([facility] Weight Management f/u [facility] Start: 07-31-2022 End: 07-31-2022 ambulatory Ofelia ler Other [employer] Other Start: 07-20-2022 End: 07-20-2022 ambulatory Lilly Luke Other [employer] Other Start: 07-20-2022 Telephone encounter Lilly Luke [facility] Start: 07-14-2022 End: 07-14-2022 Patient encounter procedure Ruby Whittington MD Work Phone: Endocrinology Comment on above: 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); Class 2 obesity Start: 07-08-2022 End: 07-08-2022 ambulatory Ofelia ler Other [employer] Other Start: 07-08-2022 Telephone encounter [facility] Start: 06-17-2022 (FCCC[facility]NF/U) Weight Management f/u Ofelia Hester [facility] Start: 06-17-2022 End: 06-17-2022 ambulatory Ofelia Hester Other [employer] Other Start: 06-04-2022 End: 06-04-2022 ambulatory Sima Ross Other [employer] Other Start: 06-04-2022 Office outpatient vi sit 15 minutes Sima Ross [facility] [address] Start: 05-27-2022 End: 05-27-2022 ambulatory Lilly Neymarsonia Other [employer] Other Start: 05-27-2022 IBT FOR OBESITY GROU P 2-10 30M Lilly Neymarsonia [facility] Start: 05-25-2022 End: 05-25-2022 ambulatory Darwin Eastwood Other [employer] Other Start: 05-25-2022 Telephone encounter Geoffrey murphy MD Work Phone: [employer] Comment on above: Appointment (LVM for patient that appt on 05/[address] George has been rescheduled to 07/08 at [facility] with Dr. Robertson. sending mail reminder as well. ) Start: 05-19-2022 End: 05-19-2022 ambulatory Ofelia Hester Other [employer] Other Start: 05-19-2022 Telephone encounter Ofelia Hester [facility] Start: 05-18-2022 End: 05-18-2022 ambulatory Ofelia Hester Other [employer] Other Start: 05-18-2022 Nutrition therapy Ofelia H[facility] Start: 04-21-2022 End: 04-21-2022 ambulatory Darwin Easterwood Other [employer] Other Start: 04-21-2022 Telephone encounter Darwin Roberterwood [facility] Start: 04-17-2022 End: 04-17-2022 ambulatory Darwin Roberterwood Other [employer] Other Start: 04-17-2022 Office outpatient vi sit 25 minutes Darwin Roberterwood [facility] Start: 04-15-2022 End: 04-15-2022 ambulatory Darwin Roberterwood Other [employer] Other Start: 04-15-2022 Telephone encounter Darwincary Joneserwood [facility] Start: 04-14-2022 End: 04-14-2022 Patient encounter procedure PHYSICIAN [facility] [place] Start: 04-10-2022 End: 04-10-2022 ambulatory Lillyakilah Blackmont Other [employer] Other Start: 04-10-2022 Telephone encounter Lilly Luke [facility] Start: 04-06-2022 End: 04-06-2022 Patient encounter procedure PHYSICIAN [facility] Start: 02-24-2022 End: 02-24-2022 ambulatory Darwin Roberterwood Other [employer] Other Start: 02-24-2022 Telephone encounter Darwincary Larawood [facility] Start: 02-18-2022 End: 02-18-2022 Emergency department patient visit Fazal Corrales [facility] Start: 02-18-2022 End: 02-18-2022 ambulatory Darwin Easterwood Other [employer] Other Start: 02-18-2022 Office outpatient vi sit [facility] Start: 02-18-2022 Telephone [facility] Start: 02-13-2022 End: 02-13-2022 Patient encounter procedure PHYSICIAN NO [facility] [place] Start: 02-11-2022 End: 02-11-2022 ambulatory Darwin Jones Other [facility] [employer] [facility] Other Start: 02-11-2022 Office outpatient ne w 45 minutes [facility] Start: 02-10-2022 End: 02-10-2022 Departed Referred PHYSICIAN [facility]-Employee Benefit Screening Start: 09-04-2021 Chart Update Unknown Unknown [facility] 250 DO Work Phone: Start: 09-03-2021 Office outpatient ne w 45 minutes Unknown Unknown [facility] 600 DO Work Phone: Procedures Date Procedure Procedure Detail Performing Clinician Start: 10-10-2024 Urnls dip stick/tabl et rgnt non-auto w/o micrscp Brain Seamus DO Work Phone: Start: 10-05-2024 Urnls dip stick/tabl et rgnt non-auto w/o micrscp Mya Finch PA Work Phone: Start: 10-05-2024 US OB BPP [...] Diagnostic ultrasoun d of gravid uterus Darwin Yasir WATSON Work Phone: Start: 06-21-2024 H/O: section [...] neoplasm of cervix Pap Smear [facility] Start: 03-23-2026 DTaP,Tdap and Td Vaccines (7 - Td or Tdap) DTaP,Tdap and Td Vaccines (7 - Td or Tdap) [facility] Start: 03-23-2026 Urine microalbumin profile [facility] Start: 2025 Tobacco Screening Tobacco Screening [facility] Start: 10-18-2024 End: 10-18-2024 Patient encounter procedure 10/18/2024 9:50 AM EST Routine [facility] [address] [place] [address] Mya Finch PA [address] [place], [place] [id number] [facility] Start: 10-10-2024 End: 10-10-2025 CULTURE, GROUP B STREP WITH SUSCEPTIBLITY CULTURE, GROUP B STREP WITH SUSCEPTIBLITY Lab Routine Third trimester Expected: 10/10/2024, Expires: 10/10/2025 [facility] Work Phone: Comment on above: Expected: 10/10/2024, Expires: Start: 10-10-2024 End: 10-10-2025 US for US OB follow up transabdominal approach Imaging Routine Excessive growth affecting management of , antepartum, single or unspecified fetus Expected: 10/10/2024, Expires: 10/10/2025 [facility] Comment on above: Expected: 10/10/2024, Expires: Start: 10-10-2024 End: 10-10-2024 Patient encounter procedure [facility] Comment on above: Arrived Start: 10-05-2024 End: 10-05-2024 Patient encounter procedure 10/05/2024 2:20 PM EST Routine [facility] [address] [place] [id number] Mya Finch PA [address] [place] [address] [facility] Start: 09-19-2024 End: 09-19-2024 [...] 08/31/2024 (Approximate), Expi res: 07/31/2025 Start: 08-25-2024 [facility] Start: 08-23-2024 End: 08-23-2024 Patient encounter procedure 08/23/2024 11:00 AM EST Routine [facility] [address] [place] [address] DO [address] [place] [address] Arrived [facility] Comment on above: Arrived Start: 08-02-2024 End: 08-02-2024 Telemedicine consultation with patient 08/02/2024 9:00 AM EST Telemedicine [facility] [place] [address] [place] [address] Darcy Enriquez MD [address], [address] [place] [address] [facility] Start: 07-27-2024 End: 07-27-2024 Patient encounter procedure 07/27/2024 11:00 AM EST Appointment [facility] [place] [address] [place] [address] [facility] [place] Start: 07-21-2024 End: 07-21-2024 Patient encounter procedure 07/21/2024 10:00 AM EST Appointment [facility] [address] [place] [address] [facility] Start: 07-11-2024 End: 07-11-2025 CBC panel - Blood by Automated count CBC Lab Routine 22 weeks gestation of Second trimester Expected: 07/11/2024 (Approximate), Expires: 07/11/2025 [facility] Work Phone: Comment on above: Expected: 07/11/2024 (Approximate), Expi res: 07/11/2025 Start: 07-11-2024 End: 11-26-2025 Measurement of glucose 1 hour after glucose challenge for glucose tolerance test Glucose tolerance, 1 hour Lab Routine 22 weeks gestation of Second trimester Diabetes mellitus screening Expected: 07/11/2024 (Approximate), Expires: 07/11/2025 [facility] Comment on above: Expected: 07/11/2024 (Approximate), Expi res: 07/11/2025 Start: 07-11-2024 End: 07-11-2024 Patient encounter procedure 07/11/2024 10:10 AM EST Routine [facility] [address] [place] [address], DO [address] [place] [place] [address] [facility] Start: 06-28-2024 [facility] Start: 2024 End: 2025 Echo complete W/O contrast Echo complete W/O contrast Echocardiography Routine 20 weeks gestation of History of pericarditis Expected: 2024, Expires: 2025 [facility] Work Phone: Comment on above: Expected: 2024, Expires: Start: 2024 End: 2024 Patient encounter procedure [facility] [place] Start: 06-12-2024 End: 10-13-2024 Alpha fetoprotein, maternal Alpha fetoprotein, maternal Lab Routine Second trimester 18 weeks gestation of Expected: 06/12/2024 (Approximate), Expires: 10/13/2024 [facility] Comment on above: Expected: 06/12/2024 (Approximate), Expi res: 10/13/2024 Start: 06-12-2024 End: 06-12-2025 US for US OB ANATOMY SINGLE W US OB CERVICAL LENGTH Imaging Routine Screening, , for anatomic survey Expected: 06/12/2024 (Approximate), Expires: 06/12/2025 [facility] Work Phone: Comment on above: Expected: 06/12/2024 (Approximate), Expi res: 06/12/2025 Start: 06-12-2024 End: 06-12-2024 Patient encounter procedure 06/12/2024 10:00 AM EDT Routine [facility] [address] [place] [phone] [address], DO [address] [place] [address] Arrived [facility] Comment on above: Arrived Start: 06-07-2024 End: 06-07-2024 Patient encounter procedure 06/07/2024 10:50 AM EDT Routine [facility] [address] [place] [phone] [address], DO [address] [place] [address] [facility] Start: 05-10-2024 End: 05-10-2024 Patient encounter procedure [facility] Comment on above: Arrived Start: 04-20-2024 End: 04-20-2024 Patient encounter procedure [facility] Comment on above: Arrived Start: 04-16-2024 COVID-19 Vaccine ( season) COVID-19 Vaccine () [facility] Start: 04-16-2024 Influenza vaccination [facility] Start: 04-07-2024 End: 04-07-2025 ABO/Rh ABO/Rh Lab Routine Missed menses Expected: 04/07/2024 (Approximate), Expires: 04/07/2025 [facility] Comment on above: Expected: 04/07/2024 (Approximate), Expi res: 04/07/2025 Start: 04-07-2024 End: 04-07-2025 Blood type and Indirect antibody screen panel - Blood Type and screen Lab Routine Missed menses Expected: 04/07/2024 (Approximate), Expires: 04/07/2025 [facility] Work Phone: Comment on above: Expected: 04/07/2024 (Approximate), Expi res: 04/07/2025 Start: 08-16-2023 Behavioral Health Screening Behavioral Health Screening [facility] Start: 05-06-2023 US scan of thyroid US thyroid [facility] Start: 04-16-2023 Covid-19 Vaccine ( season) Covid-19 Vaccine ( season) [facility] Start: 04-16-2023 Influenza vaccination Influenza Vaccine (#1) [facility] Start: 04-08-2023 [facility] Start: 08-16-2022 DEPRESSION ASSESSMENT DEPRESSION ASSESSMENT [facility] Start: 04-16-2022 Influenza vaccination INFLUENZA (#1) [facility] Start: 08-16-2021 DEPRESSION ASSESSMENT DEPRESSION ASSESSMENT [facility] Start: 01-10-2021 COVID-19 VACCINE (3 - Booster) COVID-19 VACCINE (3 - Booster) [facility] Start: 2017 PAP TESTING PAP TESTING [facility] Start: 2017 Screening for malignant neoplasm of cervix [facility] Start: 2015 DTaP,Tdap and Td Vaccines (1 - Tdap) DTaP,Tdap and Td Vaccines (1 - Tdap) [facility] Start: 2015 Urine microalbumin profile DTAP,TDAP,TD (1 - Tdap) [facility] Start: 2014 Adult BMI Screening Adult BMI Screening [facility] Start: 2014 ANNUAL PCP TEAM CHRONIC DISEASE VISIT ANNUAL PCP TEAM CHRONIC DISEASE VISIT [facility] Start: 2014 HEPATITIS C SCREENING HEPATITIS C SCREENING [facility] Start: 2014 Hepatitis C screening Hepatitis C Screening [facility] Start: 2014 HIV SCREENING HIV SCREENING [facility] Start: 2014 HIV screening HIV Screening [facility] Start: 2010 PEDS TO ADULT TRANSITION ANNUAL ASSESSMENT PEDS TO ADULT TRANSITION ANNUAL ASSESSMENT [facility] Start: 2008 Depression Screening Depression Screening [facility] Start: 2008 PEDS TO ADULT TRANSITION INITIAL DISCUSSION PEDS TO ADULT TRANSITION INITIAL DISCUSSION [facility] Start: 2008 Tobacco Screening Tobacco Screening [facility] Start: 2007 HPV VACCINE (1 - 2-dose series) HPV VACCINE (1 - 2-dose series) [facility] Start: 2005 HPV Vaccine (1 - 2-dose series) HPV Vaccine (1 - 2-dose series) [facility] Start: 1996 COVID-19 VACCINE (#1) COVID-19 VACCINE (#1) [facility] Start: 1996 HEPATITIS B (1 of 3 - 3-dose series) HEPATITIS B (1 of 3 - 3-dose series) [facility] Bacteria identified in Urine by Culture Urine culture Microbiology Routine Missed menses Ordered: 04/07/2024 [facility] Comment on above: Ordered: 04/07/2024 CBC W Auto Differential panel - Blood CBC and differential Lab Routine Missed menses Ordered: 04/07/2024 [facility] Comment on above: Ordered: 04/07/2024 CHLAMYDIA TRACHOMATI S (GENITO/STI) CHLAMYDIA TRACHOMATIS (GENITO/STI) Lab Routine First trimester Screen for STD (sexually transmitted disease) Vaginal discharge Ordered: 04/20/2024 [facility] Comment on above: Ordered: 04/20/2024 Cytology Cervical or vaginal smear or scraping study Pap Smear Pathology and Cytology Routine Well woman exam with routine gynecological exam Ordered: 04/20/2024 [facility] Work Phone: Comment on above: Ordered: 04/20/2024 Hemoglobin A1c/Hemoglobin.total in Blood Hemoglobin A1c Lab Routine Missed menses Ordered: 04/07/2024 [facility] Comment on above: Ordered: 04/07/2024 Hepatitis B virus surface Ag [Presence] in Serum or Plasma by Immunoassay Hepatitis B surface antigen Lab Routine Missed menses Ordered: 04/07/2024 [facility] Comment on above: Ordered: 04/07/2024 Hepatitis C virus Ab [Presence] in Serum or Plasma by Immunoassay Hepatitis C antibody Lab Routine Missed menses Ordered: 04/07/2024 [facility] Comment on above: Ordered: 04/07/2024 HIV-1/HIV-2 antigen/antibody combination immunoassay HIV-1 and HIV-2 antibodies Lab Routine Missed menses Ordered: 04/07/2024 [facility] Comment on above: Ordered: 04/07/2024 Neisseria gonorrhoea e DNA [Presence] in Unspecified specimen by LAUREN with probe detection Neisseria gonorrhea DNA probe, direct Lab Routine First trimester Screen for STD (sexually transmitted disease) Vaginal discharge Ordered: 04/20/2024 [facility] Comment on above: Ordered: 04/20/2024 Patient referral [facility] Work Phone: Progesterone [Mass/volume] in Serum or Plasma [facility] Progesterone [Mass/volume] in Serum or Plasma [facility] Progesterone [Mass/volume] in Serum or Plasma [facility] Progesterone [Mass/volume] in Serum or Plasma [facility] Progesterone [Mass/volume] in Serum or Plasma [facility] Reagin Ab [Presence] in Serum by RPR RPR Lab Routine Missed menses Ordered: 04/07/2024 [facility] Comment on above: Ordered: 04/07/2024 Rubella antibody, IgG Rubella an tibody, IgG Lab Routine Missed menses Ordered: 04/07/2024 [facility] Comment on above: Ordered: 04/07/2024 SURESWAB(R) ADVANCED VAGINITIS PLUS, TMA SURESWAB(R) ADVANCED VAGINITIS PLUS, TMA Pathology and Cytology Routine First trimester Screen for STD (sexually transmitted disease) Vaginal discharge Ordered: 04/20/2024 [facility] Comment on above: Ordered: 04/20/2024 Thyrotropin [Units/volume] in Serum or Plasma TSH Lab Routine Missed menses Ordered: 04/07/2024 [facility] Comment on above: Ordered: 04/07/2024 [facility] End: 07-07-2024 XR MODIFIED BARIUM SWALLOW W SPEECH THERAPY XR MODIFIED BARIUM SWALLOW W SPEECH THERAPY Radiology Routine Dysphagia, unspecified type 1 Occurrences starting 06/08/2023 until 07/07/2024 [facility] Work Phone: Comment on above: 1 Occurrences starting 06/08/2023 until 07/07/2024 [facility] Work Phone: [facility] Immunizations Immunization Date Immunization Notes Care Provider Vaishali yo 05-21-2023 influenza virus vaccine, unspecified formulation Tyrone Rock [facility] 05-21-2023 influenza, injectabl e, 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, 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 free SHIRLEY Jones Work Phone: [facility] 05-21-2023 influenza, injectabl e, 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, contains 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 Darwin Easterwood Other [facility] Other 06-15-2022 influenza, injectabl e, 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, 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 free POLITICAL WORKER Darwin Easterwood Work Phone: [facility] 06-15-2022 influenza, injectabl e, 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, contains 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 Darwin Easterwood Other [facility] Work Phone: 06-15-2022 influenza virus vaccine, unspecified formulation Francy Gan PA-C Work Phone: [facility] 06-15-2021 influenza nasal, unspecified formulation Ruby Whittington MD Work Phone: [facility] Work Phone: 06-15-2021 influenza virus vaccine, unspecified formulation Tyrone Rock [facility] 06-15-2021 influenza, injectabl e, 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, 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 free POLITICAL WORKER [place] Work Phone: [facility] 06-15-2021 influenza, injectabl e, 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, contains 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 Darwin Easterwood Other [facility] Work Phone: 05-15-2021 influenza nasal, unspecified formulation Ruby Whittington MD Work Phone: [facility] Work Phone: 05-15-2021 influenza virus vaccine, unspecified formulation Tyrone Rock [facility] 05-15-2021 influenza, high dose seasonal, 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-free Unknown Unknown [facility] Work Phone: 11-15-2020 [employer] COVID-19 Vacc 30 MCG/0.3ML Intramuscular Suspension Unknown Unknown [facility] 11-12-2020 COVID-19 vaccine, unknown product (NON-US) Ruby Whittington MD Work Phone: [facility] Work Phone: 10-24-2020 Pfizer-BioNTech COVID-19 Vacc 30 MCG/0.3ML Intramuscular Suspension Unknown Unknown [facility] 03-23-2016 tetanus toxoid, reduced diphtheria toxoid, and acellular pertussis vaccine, adsorbed Unknown Unknown [facility] Work Phone: 03-23-2016 varicella virus vaccine Unknown Unknown [facility] Work Phone: 03-01-2002 diphtheria, tetanus toxoids and acellular pertussis vaccine, unspecified formulation Unknown Unknown [facility] Work Phone: 03-01-2002 DTaP, unspecified formulation Tyrone Rock [facility] 03-01-2002 measles, mumps and rubella virus vaccine Unknown Unknown [facility] Work Phone: 03-01-2002 poliovirus vaccine, inactivated Unknown Unknown [facility] Work Phone: 03-01-2002 poliovirus vaccine, unspecified formulation Tyrone Rock [facility] 04-20-2001 hepatitis B vaccine, pediatric or pediatric/adolescent dosage Unknown Unknown [facility] Work Phone: 01-03-1998 diphtheria, tetanus toxoids and acellular pertussis vaccine, unspecified formulation Unknown Unknown [facility] Work Phone: 01-03-1998 DTaP, unspecified formulation Tyrone Rock [facility] 09-18-1997 measles, mumps and rubella virus vaccine Unknown Unknown [facility] Work Phone: 09-18-1997 varicella virus vaccine Unknown Unknown [facility] Work Phone: 03-30-1997 hepatitis B vaccine, pediatric or pediatric/adolescent dosage Unknown Unknown [facility] Work Phone: 1996 diphtheria, tetanus toxoids and acellular pertussis vaccine, unspecified formulation Unknown Unknown [facility] Work Phone: 1996 DTaP, unspecified formulation Tyrone Rock [facility] 1996 trivalent poliovirus vaccine, live, oral Unknown Unknown [facility] Work Phone: 1996 diphtheria, tetanus toxoids and acellular pertussis vaccine, unspecified formulation Unknown Unknown [facility] Work Phone: 1996 DTaP, unspecified formulation Tyrone Poalncopsey [facility] 1996 haemophilus influenz ae type b vaccine, conjugate unspecified formulation Unknown Unknown [facility] Work Phone: 1996 Hib, unspecified formulation Tyrone Rock [facility] 1996 trivalent poliovirus vaccine, live, oral Unknown Unknown [facility] Work Phone: 1996 diphtheria, tetanus toxoids and acellular pertussis vaccine, unspecified formulation Unknown Unknown [facility] Work Phone: 1996 DTaP, unspecified formulation Tyrone Polancopsey [facility] 1996 diphtheria, tetanus toxoids and acellular pertussis vaccine, unspecified formulation Unknown Unknown [facility] Work Phone: 1996 DTaP, unspecified formulation Tyrone Rock [facility] 1996 haemophilus influenz ae type b vaccine, conjugate unspecified formulation Unknown Unknown [facility] Work Phone: 1996 Hib, unspecified formulation Tyrone Polancopsey [facility] 1996 measles, mumps and rubella virus vaccine Unknown Unknown [facility] Work Phone: 1996 varicella virus vaccine Unknown Unknown [facility] Work Phone: 1996 diphtheria, tetanus toxoids and acellular pertussis vaccine, unspecified formulation Unknown Unknown [facility] Work Phone: 1996 DTaP, unspecified formulation Tyrone Polancopsey [facility] 1996 haemophilus influenz ae type b vaccine, conjugate unspecified formulation Unknown Unknown [facility] Work Phone: 1996 hepatitis B vaccine, pediatric or pediatric/adolescent dosage Unknown Unknown [facility] Work Phone: 1996 Hib, unspecified formulation Tyroen Polancopsey [facility] 1996 trivalent poliovirus vaccine, live, oral Unknown Unknown [facility] Work Phone: 1996 hepatitis B vaccine, pediatric or pediatric/adolescent dosage Unknown Unknown [facility] Work Phone: Payers Date Payer Category Payer Self-pay [id number] 2023 Self-pay [id number] 2022 Private Health Insurance [id number] 2021 Unknown 2019 Commercial Managed Care - PPO [id number] 02.315 1996 Unknown [id number] 2.16.84 0.1.755247.3.579.2.593 1996 Unknown [id number] 2.16.8 40.1.926533.3.579.2.727 1996 Unknown [id number] 2.16.8 40.1.621740.3.579.2. 1996 Unknown [id number] 2.16.8 40.1.014678.3.579.2.72 1996 Unknown [id number] 2.16.840.1.830798.3.579.2.1286 1996 Unknown [id number] 2.16.840.1.022033.3.579.2.128 1996 Unknown [id number] 2.16.840.1.136684.3.579.2.1285 1996 Unknown [id number] 2.16.840.1.303564.3.579.2.1285 1996 Unknown [id number] 2.16.8 40.1.949780.3.579.2. 1996 Unknown [id number] 2.16.8 40.1.847786.3.579.2. 1996 Unknown [id number] 2.16.8 40.1.419569.3.579.2. 1996 Unknown [id number] 2.16.8 40.1.051930.3.579.2.7 1996 Unknown [id number] 2.16.8 40.1.238604.3.579.2. 1996 Unknown [id number] 2.16.8 40.1.754146.3.579.2. 1996 Unknown [id number] 2.16.8 40.1.266655.3.579.2. 1996 Unknown [id number] 2.16.8 40.1.718172.3.579.2.72 1996 Unknown [id number] 2.16.84 0.1.798287.3.579.2.1259 1996 Unknown [id number] 2.16.84 0.1.798696.3.579.2.9 1996 Unknown [id number] 2.16.84 0.1.561076.3.579.2.1258 1996 Unknown [id number] 2.16.84 0.1.599920.3.579.2.1258 1996 Unknown [id number] 2.16.84 0.1.473034.3.579.2.1258 1996 Unknown [id number] 2.16.84 0.1.896804.3.579.2.1258 1996 Unknown [id number] 2.16.84 0.1.278602.3.579.2.1258 1996 Unknown [id number] 2.16.84 0.1.528536.3.579.2.1258 1996 Unknown [id number] 2.16.84 0.1.143293.3.579.2.1258 1996 Unknown [id number] 2.16.84 0.1.991158.3.579.2.1259 1959 Unknown [id number] Unknown [id number] Unknown [id number] Unknown [id number] 2.16.8 40.1.190964.3.579.2.531 Unknown [id number] 2.16.8 40.1.925818.3.579.2.531 Unknown [id number] 2.16.8 40.1.550232.3.579.2.531 Unknown [id number] 2.16.8 40.1.349471.3.579.2.531 Unknown [id number] 2.16.8 40.1.629229.3.579.2.531 Unknown [id number] 2.16.8 40.1.451318.3.579.2.531 Unknown [id number] 2.16.8 40.1.471759.3.579.2.531 Unknown [id number] 2.16.8 40.1.637055.3.579.2.531 Unknown [id number] 2.16.8 40.1.753100.3.579.2.531 Unknown [id number] 2.16.8 40.1.186678.3.579.2.531 Unknown [id number] 2.16.8 40.1.981574.3.579.2.531 Unknown [id number] 2.16.8 40.1.356583.3.579.2.531 Unknown [id number] 2.16.8 40.1.014695.3.579.2.531 Social History Date Type Detail Facility Start: 07-14-2022 End: 03-21-2024 No alcohol use No alcohol use [place] [address] DO Work Phone: Start: 12-29-2020 End: 08-04-2023 Tobacco smoking status [facility] Never smoked tobacco (finding) [facility] Start: 1995 Sex Assigned At Female [facility] Start: 07-14-2022 End: 03-21-2024 Sex Assigned At Structure [facility] [employer] Other Tobacco smoking status Never [facility] Tobacco smoking status [facility] Tobacco smoking consumption unknown [facility] Start: 1996 Sex Assigned At Not on file [facility] Start: 04-17-2022 End: 07-14-2022 Exposure to SARS-CoV-2 (event) Not sure [facility] Start: 07-14-2022 End: 2024 Tobacco use and exposure Smokeless tobacco non-user [facility] Start: 07-14-2022 End: 10-05-2024 Alcohol intake Lifetime non-drinker (finding) [facility] Start: 07-13-2022 Gender identity Identifies as female gender (finding) [facility] Start: 02-16-2024 [facility] Start: 03-19-2015 End: 06-23-2024 Sex Female (finding) [facility] Tobacco [facility] Comment on above: Denies Tobacco smoking status No Smoking Status Entered [facility] NEGATED: Highlighted rowStart: NINF History of tobacco use Passive smoker [facility] Medical Equipment Procedure Code Equipment Code Equipment Origin al Text Equipment Identifier Dates Pen [place] 31G X 5 MM Start: 05-18-2022 Goals Date Patient Goal Desired Activity /State Personal health goal Functional Status Date Assessment Result Facility 09-06-2024 Functional Status N/A [facility] 09-05-2024 Functional Status N/A [facility] 09-05-2024 Functional Status N/A [facility] 03-18-2024 Functional Status N/A [facility] 09-29-2023 Functional Status N/A [facility] 03-22-2023 Functional Status N/A [facility] 02-18-2022 Functional Status N/A [facility] Clinical Notes 01-14-2022 to 10-10-2024 Aleisha Abreu LPN - 10/10/2024 10:50 AM HIPOLITO Robert - 10/05/2024 2:20 PM Pavan Abreu LPN - 09/19/2024 2:00 PM HIPOLITO Robert - 09/07/2024 2:30 PM EST Note Date & Type Note Facility 10-10-2024 History of Presen t illness Narrative Reason [...] appearance. She is well-developed. Genitourinary: Vulva normal. Cardiovascular: Rate and Rhythm: Normal rate and [...] nursing note reviewed. Exam conducted with a encoding clerk present. Vitals: Estimated body mass index is 40.79 kg/m as calculated from the following: Height as of 08/25/23: 5' 7 . Weight as of this encounter: 260 lb 6.6 oz. BP: 114/78 Patient's last menstrual period was 02/02/2024 (exact date). ASSESSMENT & PLAN ICD-10-CM 1. Third trimester Z34.93 POCT urinalysis dipstick manually resulted CULTURE, GROUP B STREP WITH SUSCEPTIBLITY CULTURE, GROUP B STREP WITH SUSCEPTIBLITY 2. 36 weeks gestation of Z3A.36 POCT urinalysis dipstick manually resulted Patient is doing well but has complaints of being tired and having maternal discomfort due to . Patient verbalized frequent movement and was instructed to perform kick counts three times per day. labor precautions were given, LARC consent was signed/declined, and GBS was obtained. Cervical check was performed and patient is 0cm dilated. 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 Exam conducted with a encoding clerk present. 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 Rogelio Nath M.D. leeroy Dictated: 09/05/2024 [id number] Transcribed: 09/05/2024 [facility] Comment on above: Result Comment: Elec tronically Signed By: Pham GALLAGHER, Rogelio Robins\.br\Date and Time Signed: 09/07/24 08:38 EST 09-06-2024 Hospital Discharg e instructions Patient Education 09/06/2024 16:15:07 Concussion, Adult, Ttdv-az-Dewa Concussion, Adult A concussion is a brain [...] if you are dizzy. General instructions Take txxo-baj-mwkogmu and prescription medicines only as told by your doctor. Avoid taking strong pain medicines (opioids) after a concussion. Do not drink alcohol until your doctor says you can. Watch your symptoms and tell other people to do the same. Other problems can occur after a concussion. Tell your scrap yard worker, teachers, school nurse, school counselor, agile scrum coach, or security trainer about your injury and [...] the National Suicide Prevention Lifeline at or 170. This is open 24 hours a day. Text the Crisis Text Line at 422341. This information is not intended to replace advice given to you by your health care provider. Make sure you discuss any questions you have with your health care provider. Document Revised: 12/25/2022 Document Reviewed: 12/25/2022 [employer] Patient Education 2023 [employer]. Follow Up Care 09/06/2024 13:58:27 With:DARWIN JONES Address: [address] [place] [address] [place] [address] [phone] Business (1) When:09/09/2024 16:14:40 Comments:Call to schedule a follow-up appointment with your primary care provider. Use Zofran as needed for nausea/vomiting. Return to the ED with any new or worsening symptoms. [facility] 09-06-2024 Note ED Patient Education Note [...] you are dizzy. General instructions ??? Take iotx-mem-pixmnqe and prescription medicines only as told by your doctor. ??? Avoid taking strong pain medicines (opioids) after a concussion. ??? Do not drink alcohol until your doctor says you can. ??? Watch your symptoms and tell other people to do the same. Other problems can occur after a concussion. ??? Tell your scrap yard worker, teachers, school nurse, school counselor, agile scrum coach, or security trainer about your injury and [...] You have any (more content not included)... [facility] 09-06-2024 Evaluation + Plan note [...] date 09/06/24 15:25:00 EST, 09/06/24 15:25:00 EST [facility] [id number] NoteDischarge Instructions Given Worsening The following Patient Education Materials have been given to the patient: ~~ Education[facility]01-21-2025 Evaluation + Plan note Extracted from: Title:ED [...] Diagnostic Tests Pending * Urine Culture 09/05/24 [facility] 01-21-2025 Hospital Discharge instructions Patient Education 09/05/2024 04:35:45 Syncope, Adult, Jhfo-vo-Ummq Syncope, Adult Syncope is when you pass [...] you until you feel better. Medicines Take suyl-giw-jbevjbi and prescription medicines only as told by [...] provider. Document Revised: 12/11/2021 Document Reviewed: 12/11/2021 [employer] Patient Education 2023 [employer] 09/05/2024 04:35:45 Nausea and Vomiting, Adult, Bnyg-ts-Rbhn Nausea and Vomiting, Adult Nausea is feeling [...] fruit juice). ?Low-calorie sports drinks. Eat bland, sflw-ro-jrfpol foods in small amounts as you are able, such as: ?Bananas. ?Applesauce. ?Rice. ?Low-fat (lean) meats. ?[place]. ?Crackers. Avoid drinking fluids that have a lot of sugar or caffeine in them. This includes energy drinks, sports drinks, and soda. Avoid alcohol. Avoid spicy or fatty foods. General instructions Take xgba-tik-dxpwsrv and prescription medicines only as told by your doctor. Drink enough fluid to keep your pee (urine) pale yellow. Wash your hands often with soap and water for at least 20 seconds. If you cannot use soap and water, use hand bobbin inspector. Make sure that everyone in your home [...] your doctor about eating and drinking. Take bxkv-bdu-mllqcvl and prescription medicines only as told by your doctor. Contact your doctor if your symptoms get worse or you have new symptoms. Keep all follow-up visits. This information is not intended to replace advice given to you by your health care provider. Make sure you discuss any questions you have with your health care provider. Document Revised: 02/06/2022 Document Reviewed: 02/06/2022 [employer] Patient Education 2023 [employer]. 09/05/2024 04:35:45 Diarrhea, Adult, Cdyw-fm-Gffh Diarrhea, Adult Diarrhea is when you pass [...] regular sports drinks. ?Avoid alcohol. Eat bland, lqya-lv-ovreeb foods in small amounts as you are able. These foods include: ?Bananas. ?Applesauce. ?Rice. ?Low-fat (lean) meats. ?[place]. ?Crackers. Avoid spicy or fatty foods. Medicines Take mpfz-dhm-dukswbb and prescription medicines only as told by your doctor. If you were prescribed antibiotics, take them as told by your doctor. Do not stop taking them even if you start to feel better. General instructions Wash your hands often using soap and water for 20 seconds. If soap and water are not available, usehand bobbin inspector. Others in your home should wash their [...] provider. Document Revised: 01/19/2023 Document Reviewed: 01/19/2023 [employer] Patient Education 2023 [employer]. 09/05/2024 04:35:45 Dehydration, Adult, Rzno-ks-Dmlg Dehydration, Adult Dehydration is a condition in [...] or sea (high in altitude). The thinner, cloth drier air causes more fluid loss. Doing [...] of fat or sugar. General instructions Take lqqz-isc-guaueqc and prescription medicines only as told by [...] provider. Document Revised: 03/01/2023 Document Reviewed: 03/01/2023 [employer] Patient Education 2023 [employer]. 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 Way for further evaluation management. Please return to the ED for any new or worsening symptoms. [facility] [id number] NoteProgress Note-Nurse @0632 OB RN arrived in patient room in [...] about admission for further evaluation on OB unit.[facility]01-21-2025 NoteED Patient Education Note Gastroenterology [...] ? Low-calorie sports drinks. ??? Eat bland, jekk-nq-jonjqr foods in small amounts as you are able, such as: ? Bananas. ? Applesauce. ? Rice. ? Low-fat (lean) meats. ? [place]. ? Crackers. ??? Avoid drinking fluids that have a lot of sugar or caffeine in them. This includes energy drinks, sports drinks, and soda. ??? Avoid alcohol. ??? Avoid spicy or fatty foods. General instructions ??? Take zmwu-cbu-pkfeucp and prescription medicines only as told by your doctor. ??? Drink enough fluid to keep your pee (urine) pale yellow. ??? Wash your hands often with soap and water for at least 20 seconds. If you cannot use soap and water, use hand bobbin inspector. ??? Make sure that everyone in your [...] doctor about eating and drinking. ??? Take krwh-ksr-kbxksgd and prescription medicines only as told by your doctor. ??? Contact your doctor if your symptoms get worse or you have new symptoms. ??? Keep all follow-up visits. This information is not intended to replace advice given to you by your health care provider. Make sure you discuss any questions you have with your health care provider. Document Revised: 02/06/2022 Document Reviewed: 02/06/2022 [employer] Patient Education ? 2023 [employer]. Infectious Disease Diarrhea, Adult Diarrhea is when [...] Take an ORS (ora (more content not included)...[facility] 08-25-2024 Evaluation note* Diagnosis Onset Date Resolution Status Admit Date Class 2 obesity with body ma ss index (BMI) of 37.0 to 37.9 in adult acute August 25 11:56am Tiffani's disease acute 2024 11:56am Hypothyroidism acute August 252024 11:56am Mild left ventricular hypertrophy acute August 25 11:56am Second trimester acute August 25, 2024 11:56am [facility] Work Phone: 1(144) 750-315301-08-2025 History of Present illness Narrative* Aleisha Abreu, JAVA PROGRAMMER ANALYST - 08/23/2024 11:00 AM EST Reason for [...] 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 Exam conducted with a encoding clerk present. 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 Exam conducted with a encoding clerk present. Vitals: Estimated body mass index is [...] of: Brain Way DO documented in this encounterJefferson Memorial [id number] History of Present illness Narrative* Laura Herron [...] male Have you been seen here at [facility] in a previous ? No Recent ER visits or hospitalizations? no Bring blood sugar log or meter with you today? (Please bring them with you for every visit at [facility]) n/a Flu vaccine (Jun-October)? Yes Any [...] effusion. Also she was then evaluated by software development analyst who told her that she had pericarditis and that resolved with a taking Motrin however she did not had an echocardiogram. Saw Dr. Coronado. 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 Yes NotIn System Ref Prov ju516-kptm-ooikn acid ( 19) 29 mg iron- 1 [...] would recommend she establishes care with a quality lab technician for it to be further evaluated 7. [...] Please refer her locally to see a quality lab technician for the incidental finding on the CT [...] Hayden Reilly MD, FACOG (she/hers) Maternal- Medicine [facility] [address] [facility] [address] [place] [address] This document was created with [employer] technology. Though I make every effort to review the dictation as it is transcribed, on occasion the spoken word can be misinterpreted by the technology leading to inappropriate words, phrases, or sentences. This note is addressed to the requesting provider as a consultation for clinical guidance. Specificmedical abbreviations are occasionally used and those are generally approved by the [place]?Board of?Obstetrics and?Gynecology?as well as?Lauryn lund abbreviations. The above plan of care was based solely on the diagnoses for which a consultation was requested. ?More frequent testing may be indicated based on her other medical/obstetrical conditions. The management of other or medical conditions is beyond the scope of requested consultation and will c ontinue to be followed by the primary precision agriculture specialist or primary care provider. Note to patient: [...] the practitioner. documented in this encounterUniversity Hospitals Cleveland [facility] Center11-07-2024 Radiology Diagnostic study [facility] [place] [address] Ultrasound Report Signed Patient: Tawnya Herring MR#: [id number] : 1995 Acct:[id number] Age/Sex: 28 / F ADM Date: 4 Loc: Room: Type: [facility] Attending Dr: Brain Way DO Ordering [...] Norton Jr., D.O.06/22/2024 4:00 PM Dictation Location: [employer] Tech: Rae De Paz Transcribed By: AGUILAR 06/22/24 1600 Dictated By: Zay Norton Jr, DO 06/22/24 1552 Signed By: 06/22/24 1600 [facility]10-28-2024 History of Present illness Narrative * [...] Tiffani's disease ([facility]/HCC) 02/2022 History of Obesity (BMI 30-39.9) Pericarditis HISTORY PAST MEDICAL HISTORY SOCIAL HISTORY Past Medical History: Diagnosis Date Anxiety Blood type, Rh positive H/O calculus of kidney during Tiffani's disease ([facility]/HCC) 02/2022 History of Obesity (BMI 30-39.9) Pericarditis [...] of: Brain Way DO documented in this encounterJefferson Memorial [id number] Evaluation note* Diagnosis Onset Date Resolution Status Admit Date Well adult exam noneactive May 11, 2024 10:46am [facility] Work Phone: 1(599) 493-235909-25-2024 History of Present illness Narrative* Aleisha Abreu [...] nursing note reviewed. Exam conducted with a encoding clerk present. 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 Exam conducted with a encoding clerk present. 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 Patient has also been advised to [...] by: Thelma Elizabeth LPN documented in this encounterJefferson Memorial [id number] Hospital Discharge instructions Patient Education 03/18/2024 12:15:03 [...] provider. Document Revised: 01/31/2021 Document Reviewed: 01/31/2021 Hyperpot Patient Education 2022 Zerply. 03/18/2024 12:15:03 Subchorionic Hematoma Subchorionic Hematoma A [...] provider. Document Revised: 04/28/2021 Document Reviewed: 04/28/2021 Hyperpot Patient Education 2022 Zerply. Follow Up Care 03/18/2024 08:08:01 With:Rogelio Nath Address: [address], [address] [address]- Business (1) When:03/21/2024 11:54:39 With:DARWIN JONES Address: [address] [place] [address]- [phone] Business (1) When:Within 3 Day(s) [facility] 08-03-2024 NoteED Patient Education Note Obstetrics [...] provider. Document Revised: 01/31/2021 Document Reviewed: 01/31/2021 Hyperpot Patient Education ? 2022 Zerply. Subchorionic Hematoma A hematoma is a collection of blood outside of the blood vessels. A subchorionic hematoma is a collection of blood between the outer wall of the embryo (chorion) and the inner wall of the uterus. This condi (more content not included)...[facility]04-04-2024 NoteHNO ID: [id number] Author: RUBY WHITTINGTON MD Service: ? Author [...] 1 year. Ruby Whittington MD Endocrinology StaffSt. [facility]04-04-2024 History of Present illness Narrative* Ruby Whittington [...] Whittington MD Endocrinology Staff documented in this encounterWayne [facility]04-04-2024 Instructions* Patient Instructions* Odalis Greene - 11/18/2023 7:58 AM EDT Thank you for choosing the [facility] Department of Endocrinology, Diabetes and Metabolism. Did you know that you need to call 48 hours in advance of your scheduled visit, if you are unable to make your appointment? [facility] [place] thanks you for your commitment, because patients not showing to their appointment results in a lost opportunity for patients to receive [facility] at the [facility]. To Cancel an appointment, please choose one of the following: - Call the Appointment Call Center at [phone] - From [employer], Go to Appointments - Cancel Appts If cancelling, consider your need to reschedule to prevent further delays in your care. To Schedule an appointment, please choose one of the following: - Call the Appointment Call Center at [phone] - From [employer], Go to Appointments - Request an Appt documented in this encounterWayne Healthcare Main Campus02-14-2024 Hospital Discharge instructions Patient Education 09/29/2023 11:05:01 [...] numbers. This can be done either in [place] or metric measurements. Note that charts and online BMI calculators are available to help you find your BMI quickly and easily without having to do these calculations yourself. To calculate your BMI in [place] measurements: 1.Measure your weight in pounds [...] Centers for Disease Control and Prevention: www.cdc.gov [place] Heart Association: www.heart.org National Heart, Lung, and Blood [place]: www.nhlbi.nih.gov Summary Body mass index (BMI) is a number that is calculated from a person's weight and height. BMI may help estimate how much of a person's weight is composed of fat. BMI can help identify thosewho may be at higher risk for certain medical problems. BMI can be measured using [place] measurements or metric measurements. BMI charts are used to identify whether you are underweight, normal weight, overweight, or obese. This information is not intended to replace advice given to you by your health care provider. Make sure you discuss any questions you have with your health care provider. Document Revised: 04/24/2020 Document Reviewed: 03/01/2020 Hyperpot Patient Education 2022 Zerply. 09/29/2023 11:04:59 Sinus Infection, Adult Sinus Infection, [...] saline washes). ?Medicines that treat allergies (antihistamines). ?Htea-ugk-yrfukkl pain relievers. If caused by bacteria, your [...] at home: Medicines Take, use, or apply mvsj-zzs-icejyga and prescription medicines only as told by [...] and water are not available, use hand bobbin inspector. Do not smoke. Avoid being around people [...] provider. Document Revised: 07/07/2022 Document Reviewed: 07/07/2022 Hyperpot Patient Education 2022 Zerply. Follow Up Care 09/29/2023 09:12:00 With:DARWIN JONES CNP Address: [address] [place] [address] [place] [address]- When: Unknown [facility] 02-06-2024 Evaluation note* Encounter [...] BMI is required on scripts in the [facility]. Sep, Other *Progress note was completed with the assistance of voice recognition software for dictation purposes. Please excuse any grammatical errors that were not corrected during review process. [employer] Other 01-10-2024 Evaluation note* Encounter Date Diagnosis [...] that were not corrected during review process. [employer] Other 12-01-2023 Miscellaneous Notes* Telephone Encounter - Kenan Gomez - 07/16/2023 9:39 AM EST LVM to let patient know their appt has been rescheduled with Dr. Whittington. documented in this encounterWayne Healthcare Main Campus11-08-2023 Evaluation note* Encounter Date Diagnosis Assessment Notes [...] comfortable prescribing this medication at this time. [employer] Other 10-24-2023 NoteHNO ID: [id number] Author: Francy Gan PA-C Service: ? Author Type: Physician Real Property Appraiser Type: Progress Notes Filed: 06/08/2023 2:53 PM [...] will be in touch with results via [employer] HPI: Tawnya is a 27 year old [...] Medical Decision Making Level: 3 - [facility]St[facility]23 History of Present illness Narrative* Francy Gan [...] will be in touch with results via [employer] HPI: Tawnya is a 27 year old [...] Level: 3 - Low documented in this encounterWayne Healthcare Main Campus10-24-2023 Instructions* Patient Instructions* Francy Gan PA-C - 06/08/2023 2:16 PM EDT Continue the omeprazole for another 1.5 months documented in this encounterWayne Healthcare Main Campus10-11-2023 Evaluation note* Encounter Date Diagnosis Assessment Notes [...] that were not corrected during review process. [employer] Other 09-13-2023 Evaluation note* Encounter Date Diagnosis [...] short term 8 week course vs. terminal block assembler management. Discussed pros and cons of taking [...] that were not corrected during review process. [employer] Other 09-01-2023 Evaluation note* Encounter Date Diagnosis [...] SCANNED INTO PATIENT CHART AND FAXED TO [employer]. Apr, Other We did briefly discussed the ER visit and concerns. I will need to obtain these records from [facility] as well as the imaging and follow-up regarding the ER visit and the possible thyromegaly next week. Patient verbalizes understanding. *Progress note was completed with the assistance of voice recognition software for dictation purposes. Please excuse any grammatical errors that were not corrected during review process. [employer] Other 08-08-2023 Hospital Discharge instructions Patient Education 03/22/2023 22:52:44 Urinary Tract Infection, Adult, Gver-eq-Rdtq Urinary Tract Infection, Adult A urinary tract [...] Follow these instructions at home: Medicines Take zsnl-ikg-akiyxui and prescription medicines only as told by [...] provider. Document Revised: 03/14/2021 Document Reviewed: 03/14/2021 Hyperpot Patient Education 2022 Zerply. Follow Up Care 03/22/2023 19:54:03 With:DARWIN JONES Address: [address] [place] [address] [place] [phone] Business (1) When:03/25/2023 Comments:Follow-up with your primary care provider in 3 to 5 days. If symptoms worsen, do not improve, or new symptoms arise please report back to emergency department for further evaluation. [facility]08-07-2023 Evaluation + Plan note Diagnostic Tests Pending * Urine Culture 03/22/23 [facility]03-02-2023 Evaluation note* Encounter Date Diagnosis Assessment Notes Treatment Notes Treatment Clinical Notes Oct, Nausea & vomiting (ICD-10 - R11.2) [employer] Other 02-20-2023 Evaluation note* Encounter Date Diagnosis [...] Encounter for weight management (ICD-10 - Z76.89) [employer] Other 02-13-2023 Miscellaneous Notes* Addendum Note - [...] daily. Ruby Whittington MD documented in this encounterWayne Healthcare Main Campus01-18-2023 Evaluation note* Encounter Date Diagnosis Assessment Notes [...] Encounter for weight management (ICD-10 - Z76.89) [employer] Other 01-10-2023 Evaluation note* Encounter Date Diagnosis [...] as inspiration Patient set the following goals: [employer] Other 12-16-2022 Evaluation note* Encounter Date Diagnosis [...] E06.3) She was recently seen by an recruiting scheduler at [facility] for elevated TSH. She is currently on adequate supplementation and will follow up with them. Jul, Daytime sleepiness (ICD-10 - R40.0) Continue to work on good sleep hygiene and control factors that she can.This could also improve with additional water intake. Jul, Mild depression (ICD-10 - F32.9) Jul, Encounter for weight management (ICD-10 - Z76.89) [employer] Other 11-29-2022 History of Present illness Narrative* [...] Endocrinology Staff CC: Darwin Jones APRN, CNP. [address] [place], [place] [id number] documented in this encounterWayne Healthcare Main Campus11-29-2022 Instructions* Patient Instructions* Soo Begum Ma - 07/14/2022 8:46 AM EST Thank you for choosing the [facility] Department of Endocrinology, Diabetes and Metabolism. Did you know that you need to call 48 hours in advance of your scheduled visit, if you are unable to make your appointment? [facility] [place] thanks you for your commitment, because patients not showing to their appointment results in a lost opportunity for patients to receive [facility] health care at the [facility]. To Cancel an appointment, please choose one of the following: - Call the Appointment Call Center at [phone] - From [employer], Go to Appointments - Cancel Appts If cancelling, consider your need to reschedule to prevent further delays in your care. To Schedule an appointment, please choose one of the following: - Call the Appointment Call Center at [phone] - From [employer], Go to Appointments - Request an Appt documented in this encounterWayne Healthcare Main Campus11-02-2022 Evaluation note* Encounter Date Diagnosis Assessment Notes [...] samples and titrate her up slowly until [facility] insurance kicks in in August. We [...] will discuss at later date if needed. [employer] Other 10-20-2022 Evaluation note* Encounter Date Diagnosis [...] Pt understood and agreed to tx plan. [employer] Other 10-12-2022 Evaluation note* Encounter Date Diagnosis [...] patient set personal goal using given handout. [employer] Other 10-10-2022 Miscellaneous Notes* Telephone Encounter - Linn Hancock - 05/25/2022 2:35 PM EDT LVM for patient that appt on 05/[address] George has been rescheduled to 07/[facility] at [facility] with Dr. Robertson. sending mail reminder as well. 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 Her Mallampati is not [...] of a comprehensive approach to obesity management [employer] Other 09-02-2022 Evaluation note* Encounter Date Diagnosis [...] to start the weight management program at [facility] in the coming months.Nothing further needed [...] that were not corrected during review process. [employer] Other 07-07-2022 Hospital Discharge instructions Patient Education [...] Follow these instructions at home: Medicines Take pwsa-pwf-ggqfixb and prescription medicines only as told by [...] 04/27/2002 Document Revised: 08/05/2018 Document Reviewed: 05/14/2017 Hyperpot Patient Education 2020 Zerply. 02/18/2022 22:49:49 Migraine Headache Migraine Headache A [...] Follow these instructions at home: Medicines Take lpxh-xyi-yuxbgpl and prescription medicines only as told by your health care provider. Ask your health care provider if the medicine prescribed to you: ?Requires you to avoid driving or using heavy machinery. ?Can cause constipation. You may need to take these actions to prevent or treat constipation: ?Drink enough fluid to keep your urine pale yellow. ?Take umgu-eug-qxruiiw or prescription medicines. ?Eat foods that are [...] 08/02/2006 Document Revised: 11/24/2019 Document Reviewed: 09/14/2019 Hyperpot Patient Education 2020 Zerply. Follow Up Care 02/18/2022 20:32:17 [facility] Address: [address] [place] [phone] Business (1) When:Within 3 Day(s) [facility]07-06-2022 Evaluation + Plan noteExtracted from: Title:ED [...] voices understanding and is agreeable to plan. [facility]07-06-2022 Evaluation note* Encounter Date Diagnosis Assessment [...] and remind her of lab draw at [facility]. Feb, Thyromegaly (ICD-10 - E01.0) Discussed [...] that were not corrected during review process. [employer] Other 07-01-2022 History general Narrative - Reported* Type Description Date Medical History Anxiety Medical History pericardi tis- Resolved cardiology signed off Medical History Kidney stones during Medical History Tiffani's disease February 2022 Medical History Abnormal thyroid ult rasound February 2022 work-up pending by ENT Surgical History 2018 Surgical History Cystoscopy 05/2021 Surgical History 2020 Hospitalization History See surgical hx [employer] Other 07-01-2022 History general Narrative - Reported* Type Description Date Medical History Anxiety Medical History pericardi tis- Resolved cardiology signed off Medical History Kidney stones during Medical History 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 [facility]* Diagnosis 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 documented in this encounter [facility] note* Diagnosis Dysphagia, unspecified type- Primary LPRD (laryngopharyngeal reflux disease) Other diseases of larynx documented in this encounter [facility]* Diagnosis Onset Date Resolution Status Obesity acute [facility] Work Phone: Evaluation note* Diagnosis 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 Irregular menstruation, unspecified Female infertility Female infertility of unspecified origin Calculus of kidney documented in this encounter [facility]* Diagnosis Onset Date Resolution Status Obesity acute Class 2 obesity with body ma ss index (BMI) of 37.0 to 37.9 in adult [facility] Work Phone: Evaluation note* Diagnosis Onset Date Resolution Status Obesity acute Class 2 obesity with body ma ss index (BMI) of 37.0 to 37.9 in adult acute Class 2 obesity with body ma ss index (BMI) of 37.0 to 37.9 in adult [facility] Work Phone: evaluation note* Diagnosis Onset Date Resolution Status Class 2 obesity with body ma ss index (BMI) of 37.0 to 37.9 in adult acute Class 2 obesity with body ma ss index (BMI) of 37.0 to 37.9 in adult acute [facility] Work Phone: Evaluation note* Diagnosis Onset Date Resolution Status Class 2 obesity with body ma ss index (BMI) of 37.0 to 37.9 in adult acute [facility] Work Phone: evaluation note* Diagnosis Onset Date Resolution Status Well adult exam noneactive [facility] Work Phone: evaluation note* Diagnosis [...] type Depression affecting [facility]* Diagnosis History of pericarditis- Primary Mild concentric left ventricular hypertrophy (LVH) 25 weeks gestation of documented in this encounter [facility]* Diagnosis 35 weeks gestation of Third trimester state, incidental [facility]* Diagnosis Third trimester state, incidental 36 weeks gestation of Excessive growth affecting management of , antepartum, single or unspecified fetus documented in this encounter [facility] HealthcareHistory general [...] Surgical History 2020 Hospitalization History See surgical Ziffi Other Hisvgxp general Narrative - Reported* Type Description Date [...] Surgical History 2020 Hospitalization History See surgical Ziffi Other Hissccf general Narrative - Reported* Type Description Date [...] Surgical History 2020 Hospitalization History See surgical [employer]i Other History of Present illness Narrative* Patient [...] no other testing or intervention appears necessary. [facility] Yunait DO Work Phone: Hospital course Narrative No data available for this section [facility] HospitalInstructionsNot on filedocumented in this encounter [facility] SystemInstructions* Attachments The following attachments cannot be sent through Care Everywhere. * Preeclampsia (Northern Irish) documented in this encounterTogus [facility] SystemInstructionsNot on file documented in this encounterUniversity Hospitals Cleveland Medical CenterProgress note No data available for this section [facility] HospitalReason for referral (narrative)* [facility]. [facility] Please send last 2 progress notes, Thyroid labs, US of thryoid and ENT progress notes with referral Diagnosis 1 Tiffani's disease (E06.3) Referral Organization [facility] Referring Provider First Name Elmore Referring Provider Last Name [facility] Referring Provider Specialty Nurse Pract itioner Referred Provider Specialty Endocrinolog y Referral Priority Routine [facility] Other Reason for referral (narrative)* Diagnostic Procedure Only (Routine) - Pending Review Specialty Diagnoses / Procedures Referred By Clint scott Referred To Contact XR IMAGING Diagnoses Dysphagia, unspecified type Procedures XR MODIFIED BARIUM SWALLOW W SPEECH THERAPY RADIOLOGIC EXAM SWALLOW FUNCTION CONTRAST STUDY Francy Gan PA-C [address] [id number] [place] [address] Referral ID Status Reason Start Date Expiration Date Visits Requested Visits Authorized [id number] Pending Review Auto-Generat ed Referral 3 07/07/2024 1 1 [facility] Chief Complaint TAWNYA HERRING is being seen [...] 2024 1 1:56am Mild left ventricular hypertrophy Auguar 2024 11:56am Second trimester August 25, 2024 [...] Dysphagia, unspecifi ed type (R13.10) Referral Organization [facility] Family Medicin taj Moreira Referring Provider First Name Darwin Referring Provider Last Name [facility] Referring Provider Specialty Nurse Pract itcalvin Referred Organization [facility] Referred Address [address] [place], [place] Referred Provider Specialty Ear, Nose an d Throat Referral Priority Routine Reason ABNORMAL US OF THYRO ID Newly discovered [employer] Diagnosis 1 Thyromegaly (E01.0) Referral Organization [facility] Referring Provider First Name Darwin Referring Provider Last Name [facility] Referring Provider Specialty Nurse Pract itcalvin Referred Provider Specialty Ear, Nose an d Throat Referral Priority Routine Additional Source Comments INFORMATION SOURCE (unrecogn ized section and content) DATE CREATED AUTHOR 09/04/2021 [employer] DATE CREATED AUTHOR AUTHOR'S ORGANIZ ATION 12/18/2022 [facility] DATE CREATED AUTHOR AUTHOR'S ORGANIZ ATION 11/22/2023 [facility] DATE CREATED AUTHOR AUTHOR'S ORGANIZ ATION 03/20/2024 [facility] DATE CREATED AUTHOR AUTHOR'S ORGANIZ ATION 08/05/2024 [facility] DATE CREATED AUTHOR AUTHOR'S ORGANIZ ATION 09/06/2024 [facility] DATE CREATED AUTHOR AUTHOR'S ORGANIZ ATION 09/08/2024 [facility] DATE CREATED AUTHOR AUTHOR'S ORGANIZ ATION 09/13/2024 [facility] DATE CREATED AUTHOR AUTHOR'S ORGANIZ ATION 09/14/2024 [facility] DATE CREATED AUTHOR AUTHOR'S ORGANIZ ATION 10/03/2024 [facility] DATE CREATED AUTHOR AUTHOR'S ORGANIZ ATION 10/12/2024 [facility] EPIC Care Teams (unrecognized [...] [address] Attending Provider Active Start: [facility] 2023 End: November 01, 2023 Team Status: Inactive Member Role Status Dates Darwin Jones APRN Primary Care Pr ovider, Attending Provider Active Start: November 25, 2023 End: November 25, 2023 Team Status: Inactive Member Role Status Dates Darwin Jones APRN Primary Care Provider Active Start: November 30, 2023 End: November 30, [address] Attending Provider Active Start: [facility] 2023 End: November 30, 2023 Team Status: Active Member Role Status Dates Provider Conversion Attending Provider Active St art: August 30, 2023 Team Status: Inactive Member Role Status Dates Darwin Jones APRN Primary Care Provider Active Addi Ortega DO [facility] Attending Provider Active Team Status: Inactive [...] Active Saad Valera DO Attending Provider Active [facility] Relationship Specialty Start Date End Date Darwin Jones CNP [phone] [address] Referring Family Medicine 04/22/22 [facility] Relationship Specialty Start Date End Date Darwin Jones CNP [address] [address] Referring Family Medicine 04/22/22 Team Status: Inactive Member Role Status Dates Darwin Jones APRN Primary Care Provider Active Jeovanny Quiros DO Emergency Provider Active [facility] Relationship Specialty Start Date End Date Darwin Jones THREAT MONITORING ANALYST [address] [address] Referring Family Medicine 04/22/22 [facility] Relationship Specialty Start Date End Date Darwin Jones CNP [address] [address] Referring Family Medicine 04/22/22 Team Status: Inactive Member Role Status Dates Darwin Jones APRN Attending Provider Active Start: July 23, 2023 End: July 23, 2023 Team Status: Inactive Member Role Status Dates Darwin Jones APRN Attending Provider Active Start: August 25, 2023 End: August 25, 2023 [facility] Relationship Specialty Start Date End Date Darwin Jones CNP [address] [address] Referring Family Medicine 04/22/22 Team Status: Inactive Member Role Status Dates Darwin Jones APRN Primary Care López ovidflorentin Attending Provider Active Start: December 24, 2023 [...] 06, 2024 End: April 06, 2024 Addi Andrews [facility] DO [facility] Attending Provider Active Start: April [...] September 21, 2024 End: September 21, 2024 [facility] Relationship Specialty Start Date End Date No Pcp, [place] [id number] PCP - General Family Medicine 08/19/19 [facility] Relationship Specialty Start Date End Date No Pcp, [place] [address] PCP - General Family Medicine 08/19/19 [facility] Relationship Specialty Start Date End Date No Pcp, [place] [address] PCP - General Family Medicine 08/19/19 Goals [...] has been rescheduled to 07/08 at [facility] with Dr. Robertson. sending mail reminder [...] or prosecute any alcohol or drug abuse patient.[facility] the event this information is protected by the Federal Confidentiality of Alcohol and Drug Abuse Patient Records regulations: The Federal rules restrict any use of the information to criminally investigate or prosecute any alcohol or drug abuse patient.[facility] the event this information is protected by the Federal Confidentiality of Alcohol and Drug Abuse Patient Records regulations: The Federal rules restrict any use of the information to criminally investigate or prosecute any alcohol or drug abuse patient.[facility] the event this information is protected by the Federal Confidentiality of Alcohol and Drug Abuse Patient Records regulations: The Federal rules restrict any use of the information to criminally investigate or prosecute any alcohol or drug abuse patient.[facility] Campus[facility] the event this information is protected by the Federal Confidentiality of Alcohol and Drug Abuse Patient Records regulations: The Federal rules restrict any use of the information to criminally investigate or prosecute any alcohol or drug abuse patient.[facility] Campus[facility] the event this information is protected by the Federal Confidentiality of Alcohol and Drug Abuse Patient Records regulations: The Federal rules restrict any use of the information to criminally investigate or prosecute any alcohol or drug abuse patient.[facility] FOR RECORDS PERTAINING TO PATIENTS WHO ARE [...] BE BASED ON THE PRIMARY CLINICAL RECORDS. [employer] [facility]. provides no warranty or guarantee of the accuracy or completeness of information in this document.
[2024-10-13 11:12] VITALS: BP 140/82; PULSE 113
== END 2024-10-13 11:58 | disposition home or self-care (01) ==
LOC: US 00:08 → FBC 11:07
PROVIDERS: PCP Nurse Practitioner Family; Visit Provider Obstetrics & Gynecology
DX: O36.63X0 Maternal care for excessive fetal growth, third trimester, not applicable or unspecified (principal); O40.3XX0 Polyhydramnios, third trimester, not applicable or unspecified; Z3A.38 38 weeks gestation of pregnancy
CPT/HCPCS: 76816; 76818

== ENCOUNTER 2024-10-17 00:50 | Outpatient (OUT) | payer OTHER, SELFPAY ==
--- OUTSIDE RECORDS SUMMARY | 2024-10-17 00:55 | XMS_ITS | CCD ---
Author Organization [facility] Care Team Providers Care Skill Training Program Coordinator Name Role Phone Unknown, Unknown Unavailable Unavailable Unavailable Unavailable NO FAMILY, PHYSICIAN Primary Care Provider Unava ilable DO Addi Ortega Attending Provider [phone] Darwin Jones Unavailable DARWIN JONES Primary Care Physician [phone] Lilly Luke Unavailable SHIRLEY Jones Primary Care Provider SHIRLEY Jones Attending Provider DO Saad Valera Attending Provider Ofelia Hester Unavailable [facility] AMIE Darwin Unavailable [phone] Sima Ross Unavailable [facility] AMIE Darwin Unavailable SHIRLEY Jones Primary Care Provider SHIRLEY Hester Attending Provider [phone] SHIRLEY Jones Primary Care Provider SHIRLEY Hester Attending Provider [phone] Attending Provider REQUEST, DR JOCE LISTED Primary Care Unavaila ble SEAMUS ., DR YEUNG Attending Unavailable SEAMUS ., DR YEUNG Consulting Unavailable SEAMUS ., DR YEUNG Admitting Unavailable SHIRLEY Jones Primary Care Provider DO Addi Ortega [facility] Provider DO Jeovanny Quiros Emergency Provider [facility] Provider DO Addi Ortega Attending Provider [phone] [facility] Care Provider Brain Way [facility]ending [facility] Primary Care Provider Brain Way Attending Provider [phone] RUBY WHITTINGTON Attending Unavailable FRANCY GAN Attending [facility]available [facility] Provider Brain [address] Attending Provider [facility] Primary Care Provider [phone] Attending Provider [phone] [place] Attending Unavailable Gabriel Curtis Attending Unavailable Tyrone Rock Attending Unavailable [facility] Primary Care Provider DO Brain Way [facility]ending [facility] Attending Provider SHIRLEY Jones Primary Care Provider DO Brain Way Attending Provider [phone] SHIRLEY Jones Primary Care Provider DO Brain Way Attending Provider Unavailable Primary Care Provider [facility] Darwin WATSON Primary Care Provider [facility] Addi SELLERS Attending Provider Brain Way DO Attending Provider SEAMUS, BRAIN R Referring Unavailable NO PCP, NO PCP Primary Care Unavailable HAYDEN REILLY P Attending Unavailable NO PCP, NO PCP Primary Care Unavailable ISHA REILLYOLINA P Referring Unavailable DARCY ENRIQUEZ Attending Unavailable SEAMUS, BRAIN R Referring Unavailable NO PCP, NO PCP Primary Care Unavailable Easter[place]olly 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, Darwin Anaya Primary Care Provider Brain Way DO Attending Provider [phone] Janis GALLAGHER, Mary Ellen Attending Provider DO Gabriel Curtis Attending Unavailable [place] Attending Unavailable Rogelio Nath Attending Unavailable Rogelio Nath Admitting Unavailable Rogelio Nath Attending Unavailable Rogelio Nath Admitting Unavailable Flash Franco Attending Unavailable [facility] Darwin WATSON Primary Care Provider SeamusBrain woo DO Attending Provider No Pcp, No Pcp Primary Care Provider Unavailabl e MYA FINCH Attending Unavailable SEAMUS, BRAIN Attending Unavailable MYA FINCH Attending Unavailable SEAMUS, BRAIN Attending Unavailable SEAMUS, BRAIN Attending Unavailable SEAMUS, BRAIN Attending Unavailable SEAMUS, BRAIN Attending Unavailable SEAMUS, BRAIN Attending Unavailable SEAMUS, BRAIN Attending Unavailable Bordner, Lesley C Admitting Unavailable Bordner, Lesley C Attending Unavailable Bella Lesley C Attending Unavailable Darwin Jones Primary Care Unavailable Seamus, Brain Attending Unavailable Seamus, Brain Admitting Unavailable [place] brooks Primary Care Unavailable Seamus, Brain Attending Unavailable Seamus, Brain Admitting Unavailable Seamus, Brain Attending Unavailable Darwin Jones Primary Care Unavailable Seamus, Brain Admitting Unavailable Seamus, Brain Attending Unavailable Darwin Jones Primary Care Unavailable Seamus, Brain Admitting Unavailable Janis, Mary Ellen Admitting Unavailable Mary Ellen Bruce Attending Unavailable Darwin Jones Primary Care Unavailable Mary Ellen Bruce Attending Unavailable Darwin Jones Primary Care Unavailable Mary Ellen Bruce Admitting Unavailable Seamus, Brain Attending Unavailable Robert, Darwin Anaya Primary Care Unavailable Seamus, Brain Admitting Unavailable [facility], Darwin J Primary Care Unavailable Seamus, Brain Attending Unavailable Seamus, Brain Admitting Unavailable Easterholly, Darwin J Primary Care Unavailable Seamus, Brain Attending Unavailable Seamus, Brain Admitting Unavailable [facility], Darwin J Primary Care Unavailable Seamus, Brain Attending Unavailable Seamus, Brain Admitting Unavailable [facility], Darwin J Primary Care Unavailable Seamus, Brain Attending Unavailable Seamus, Brain Admitting Unavailable [facility], Darwin J Primary Care Unavailable Seamus, Brain Attending Unavailable Seamus, Brain Admitting [facility]available [facility] Addi P Admitting Unavailable [facility], Addi P Attending Unavailable [facility], Darwin J Primary Care Unavailable Allergies Allergy Classification Reported Allergen(s) Allergy Type Date of Onset Reaction(s) Facility (6 sources) No Known Medication Allergies; Translations: [No Known Medication Allergies] Propensity to adverse reactions (disorder) [facility] Repository Medications Current Medications Medication Drug [...] tablet (2 sources) Opioid Agonist Start: 06-03-2021 [place] 325 mg-5 mg oral tablet 2 tab(s), [...] day(s), # 20 tab(s), Refills(s) 0, Pharmacy: [facility], 170.2, cm, 09/29/23 10:44:00 EST, Height/Length [...] day(s), # 28 cap(s), Refills(s) 0, Pharmacy: [facility], 170.2, cm, 03/22/23 20:14:00 EDT, Height/Length Dosing, 113.5, kg, 03/22/23 20:14:00 EDT, Weight Dosing Start Date: 03/22/23 Stop Date: 03/29/23 Status: Ordered Start: 07-03-2021 take 1 capsule by mo uth twice daily Keflex 500 mg Cap 500 mg = 1 cap(s), Oral, BID, # 10 cap(s), Refills(s) 0, Pharmacy: [facility], 170, cm, 06/27/21 10:56:00 EST, Height/Length [...] Start: 08-25-2024 take 1 capsule by mo [facility] once daily Levothyroxine 100 mcg capsule [...] tablet by mouth once daily magnesium oxide 400 mg Tab 400 mg = 1 tab(s), Oral, Daily, Refills(s) 0 Start Date: 09/05/24 Status: Ordered medroxyPROGESTERone acetate 10 mg oral tablet (1 [...] day(s), # 21 tab(s), Refills(s) 0, Pharmacy: [facility], 170.2, cm, 09/29/23 10:44:00 EST, Height/Length [...] Apr, Active take 1 capsule by mo [facility] once daily omeprazole (PRILOSEC) 20 mg [...] Date: 02/18/22 Stop Date: 02/21/22 Status: Ordered Otw923-Pnrichm Fumarate-Fa () 28-800 mg-mcg Tablet (20 sources) Start: 12-29-2020 Bco244-Quffwrx Fumarate-Fa () 28-800 mg-mcg Tablet Active TAB PO December 29, 2020 3:43pm Start: 12-29-2020 End: 10-07-2023 Mqt817-Wekkgst Fumarate-Fa ( ) 28-800 mg-mcg Tablet Discontinued TAB PO December 28, 2020 11:00pm October 07, 2023 6:06pm Start: 12-29-2020 End: 10-07-2023 Bzz324-Hqymqxd Fumarate-Fa ( ) 28-800 mg-mcg Tablet Discontinued TAB PO December 29, 2020 12:00am October 07, 2023 7:06pm Start: 12-29-2020 Ueo140-Hmwcicu Fumarate-Fa () 28-800 mg-mcg Tablet Active TAB PO December 28, 2020 11:00pm Start: 12-29-2020 Cqi414-Lovhuff Fumarate-Fa () 28-800 mg-mcg Tablet Active TAB PO December 29, 2020 12:00am opnlzk72-syqs fum-folic ac-o m3 (One Daily ) (12 sources) Start: 08-25-2024 cgbefv26-ixsg fum-folic ac-om3 (One Daily ) Active 1 PKG PO Daily August 25, 2024 12:10pm Start: 05-11-2024 End: 08-25-2024 bjtqci10-mnxq fum-folic ac-o m3 (One Daily ) Discontinued PO May 10, 2024 11:00pm August 25, 2024 12:11pm Start: 05-11-2024 ujlybw77-dnui fum-folic ac-om3 (One Daily ) Active PO May 10, 2024 11:00pm Start: 05-11-2024 ooxfsd45-zqlm fum-folic ac-om3 (One Daily ) Active PO May 11, 2024 12:00am MV-Min-Fe Fum-FA-DHA ( 1 PO) (20 sources) MV-Min- Fe Fum-FA-DHA ( 1 PO) Take 1 each by mouth Daily Active au102-cvya-bhfcm acid ( 19) 29 mg iron- 1 mg tablet,chewable (2 sources) jh922-hwuf-lyngb acid ( 19) 29 mg iron- 1 [...] source) Vitamin B12 cyanocobalamin/f olic acid (VITAMIN V08-UASCW ACID) 1,000-400 mcg lozg Take by mouth [...] Start: 05-26-2023 take 1 capsule by mo [facility] every twenty-four hours Phentermine [...] 0 Active take 1 tablet by delphine every twenty-four hours Vitamin B12 1000 MCG [...] Episodic Immunizations and screening for infectious disease (5 sources) Encounter for screening for human papillomavirus (HPV); Translations: [Patient encounter status] Onset: 3 04-20-2024 Episodic Menstrual disorders (4 sources) Irregular periods; [...] Translations: [Abnormal weight gain] 10-07-2023 Episodic Other upper respiratory infections (1 source) Chronic sinusitis; Translations: [Chronic sinusitis, unspecified] Onset: 4 Chronic Other upper respiratory infections (2 sources) Acute pharyngitis, unspecified; Translations: [Acute pharyngitis] Onset: 5 Episodic Residual codes; unclassified (2 sources) Gestation [...] (1 source) Tiffani's Thyroiditis Onset: 4 Unclassified (12 sources) Onset: 9 Resolved: 1 09-05-2024 Urinary tract infections (1 source) Urinary tract infectious disease; Translations: [Urinary tract infection, site not specified] Onset: 3 Episodic Past or Other Problems Problem Classification Problem Date Documented Da te Episodic/Chronic Other circulatory disease (1 source) Elevated blood-pressure [...] and metabolic disease] Onset: 05-24-2024 Episodic Other and delivery including normal (20 sources) Second trimester ; Translations: [Encounter for supervision of normal , unspecified, second trimester] Onset: 06-28-2024 06-12-2024 Episodic Other screening for suspected conditions [...] Test Name Value Interpretation Reference Range Facility ALL MISCELLANEOUS TESTon MISCELLANEOUS TEST COMMENT . [facility] Comment on above: Test Ordered: 506195 Strep Gp B Culture+Rflx Strep Gp B Culture+Rflx Negative CB Reference Range: Negative Centers for Disease Control and Prevention (CDC) and [place] [employer]stetric[employer] Gynec[employer] (ACOG) guidelines for prevention of group B streptococcal (GBS) disease specify co-collection of a vaginal and rectal swab specimen to maximize sensitivity of GBS detection. Per the CDC and ACOG, swabbing both the lower vagina and rectum substantially increases the yield of detection compared with sampling the vagina alone. Penicillin G, ampicillin, or cefazolin are indicated for intrapartum prophylaxis of GBS colonization. Reflex susceptibility testing should be performed prior to use of clindamycin only on GBS isolates from penicillin- allergic women who are considered a high risk for anaphylaxis. Treatment with vancomycin without additional testing is warranted if resistance to clindamycin is noted. Performed at: [facility] [address] [id number] Ladle Car Operator: Alexis Asthon PhD, Phone: [phone] [id number] GBS CX WITH SUSEPTIBILITY [facility] Ambulatory Visit Summaryon 0 10-14-2024 Ambulatory Visit Summary Ambulatory Visit Summary MONAMIMI TAWNYA Grubbs :1995 Visit Date:10/14/2024 Ambulatory Visit Instructions Your Diagnosis Acute pharyngitis, Sore throat Exposure to strep throat Exposure to influenza Congestion of nasal sinus Your Care Team Attending Physician - Etta Merino Primary Care Physician - DARWIN JONES CNP This Is Your Medications List Contact prescribing physician if questions or concerns aspirin (aspirin 81 mg Oral EC Tab) citalopram (CeleXA 20 mg Tab) levothyroxine (Synthroid 50 mcg Tab) magnesium oxide (magnesium oxide 400 mg Tab) Procedures Performed delivery. Discharge Vitals Temperature (Oral) 36.8 ???C Heart Rate (Peripheral) 118 Blood Pressure 114/72 Height 170.8 cm Height 67 in Weight 118.8 kg Weight 261.909 lb BMI 40.72 What to do next You Need to Schedule the Following Appointments Follow Up with DARWIN JONES CNP When: Where: [address] [place] [id number]- Medications What How Much When Instructions Unchanged aspirin (aspirin 81 mg Oral EC Tab) See instructions 1 tab(s) Oral Contact prescribing physician if questions or concerns Unchanged citalopram (CeleXA 20 mg Tab) 1 Tablets By Mouth Every day Contact prescribing physician if questions or concerns Unchanged levothyroxine (Synthroid 50 mcg Tab) See instructions Oral 2 tab (100mcg) daily Contact prescribing physician if questions or concerns Unchanged magnesium oxide (magnesium oxide 400 mg Tab) 1 Tablets By Mouth Every day Contact prescribing physician if questions or concerns Allergies No Known Allergies No Known Medication Allergies Problems Ongoing - Any problem that you are currently receiving treatment for. Anxiety Kidney stones Obesity Weight gain Historical - Any problem that you are no longer receiving treatment for. Patient Survey You may receive a survey via text or e-mail asking about your office visit. Please share your experience with us by completing your survey. We appreciate your feedback and thank you for choosing us for your care. Education Materials Pharyngitis Pharyngitis is a sore throat (pharynx). This is when there is redness, pain, and swelling in your throat. Most of the time, this condition gets better on its own. In some cases, you may need medicine. What are the causes? An infection from a virus. ??? An infection from bacteria. ??? Allergies. What increases the risk? Being 5???24 years old. ??? Being in crowded environments. These include: ? Daycares. ? Schools. ? Dormitories. ??? Living in a place with cold temperatures outside. ??? Having a weakened disease-fighting (immune) system. What are the signs or symptoms? Symptoms may vary depending on the cause. Common symptoms include: ??? Sore throat. ??? Tiredness (fatigue). ??? Low-grade fever. ??? Stuffy nose. ??? Cough. ??? Headache. Other symptoms may include: ??? Glands in the neck (lymph nodes) that are swollen. ??? Skin rashes. ??? Film on the throat or tonsils. This can be caused by an infection from bacteria. ??? Vomiting. ??? Red, itchy eyes. ??? Loss of appetite. ??? Joint pain and muscle aches. ??? Tonsils that are temporarily bigger than usual (enlarged). How is this treated? Many times, treatment is not needed. This condition usually gets better in 3???4 days without treatment. If the infection is caused by a bacteria, you may be need to take antibiotics. Follow these instructions at home: Medicines ??? Take nrwu-jrt-epeqrse and prescription medicines only as told by your doctor. ??? If you were prescribed an antibiotic medicine, take it as told by your doctor. Do not stop taking the antibiotic even if you start to feel better. ??? Use throat lozenges or sprays to soothe your throat as told by your doctor. ??? Children can get pharyngitis. Do not give your child aspirin. Managing pain To help with pain, try: ??? Sipping warm liquids, such as: ? Broth. ? Herbal tea. ? Warm water. ??? Eating or drinking cold or frozen liquids, such as frozen ice pops. ??? Rinsing your mouth (gargle) with a salt water mixture 3???4 times a day or as needed. ? To make salt water, dissolve ?1 tsp (3???6 g) of salt in 1 cup (237 mL) of warm water. ? Do not swallow this mixture. ??? Sucking on hard candy or throat lozenges. ??? Putting a cool-mist humidifier in your bedroom at night to moisten the air. ??? Sitting in the bathroom with the door closed for 5???10 minutes while you run hot water in the shower. General instructions ??? Do not smoke or use any products that contain nicotine or tobacco. If you need help quitting, ask your doctor. ??? Rest as told by your doctor. ??? (more content not included)... Normal [facility] Family Medicine Office/Clini c Noteon 10-14-2024 Family Medicine Office/Clinic Note Family Medicine Office/Clinic Note Chief Complaint sore throat and congestion HPI Staff Patient presents with sore throat and congestion. C/O: Onset: 2 days ago Body aches: no Chills: no Fatigue: yes Cough: yes Sore throat: yes Fever: no Headache: no Nasal congestion: yes Chest congestion: yes Ear congestion: no SOB: no Known Exposure: yes son has strep and flu A History of Present Illness I have reviewed and verified the staff HPI to be accurate for this encounter. Portions of this record have been created with voice recognition software. Occasional wrong-word or ???xzcwi-s-bpsb??? substitutions may have occurred due to the inherent limitations of voice recognition software. 29-year-old female who is 36 weeks gestation of presents with complaints of nasal congestion, mild chest congestion and sore throat. Patient states her throat is her most bothersome symptom. She denies any fever or chills. She denies any chest pain, wheezing or shortness of breath. Occasionally small amount of phlegm when she coughs that is yellowish. No nausea vomiting or diarrhea. She does have people in the home her and children diagnosed with flu as well as another child diagnosed with strep throat. She would like to be swabbed for COVID, flu A/B and strep. Reports good movement. Review of Systems PHQ Score Initial Depression Screen Score: 0 SCORE ROS negative unless otherwise stated in HPI. Physical Exam Vitals & Measurements T: 36.8 ???C(Oral) HR: 118(Peripheral) BP: 114/72 SpO2: 99% HT: 67 in HT: 170.8 cm WT: 118.8 kg WT: 261.909 lb BMI: 40.72 General: Well developed, well nourished, in no acute distressvisably Eyes: Pupils equal, round, and reactive to light. Conjunctivae and sclerae normal, and extraocular movements intact Ears: No deformity or lesion of external ear. Canals and TM appear normal bilaterally. TM???s intact, not inflamed, with normal light reflex. Hearing grossly normal to conversational speech Nose: No deformity, discharge, inflammation, or lesions Mouth: Mucous membranes moist. Normal oropharynx, and posterior pharynx without lesions or exudates. Tongue normal tonsils +1, uvula midline, no drooling Neck: no adenopathy Lungs: clear to auscultation throughout, no wheezing, no rales. No respiratory distress RR 16 Cardio: regular rate and rhythm, no murmur HR 110 Abdomen: gravid abdomen Musculoskeletal: not assessed Extremity: not assessed Neurologic: not assessed Skin: No rashes, ulcerations, or suspicious lesions Mental Status: Alert and oriented x3. Normal mood and affect Assessment/Plan 36 weeks . Rapid Strep, COVID and Flu A/B are all negative. We will send strep screen culture to confirm. No fevers. Mild tachycardia. Mild symptoms. Appears viral. Did offer to treat for strep or wait and she agrees to wait for strep culture. List of safe medications provided. 1. Acute pharyngitis, (J02.9: Acute pharyngitis, unspecified)Sore throat Rapid strep -. Given exam will send strep cx to confirm. No news is good news, if you do not hear from us, strep culture was Negative. If any GAS growth, will rx appropriate antibiotic and notify you. Discussed otherwise consistent with viral illness, typical duration 7-14 days. Fluids/rest, PRN tylenol for pain and/or fever. May use salt water gargles and otc lozenges for pain. Fu with PCP if cx negative and not improving over next 3-5 days. Seek medical attention immediately for any increased difficulty swallowing, opening mouth, or difficulty managing oral secretions. Patient and/or parent verbalized understanding of tx plan. Ordered: Influenza Type A&B POC 64115 Rapid Strep POC 15736 Strep Screen Culture 2. Exposure to strep throat (Z20.818: Contact with and (suspected) exposure to other bacterial communicable diseases) Rapid strep negative, will send for culture to confirm. 3. Exposure to influenza (Z20.828: Contact with and (suspected) exposure to other viral communicable diseases) Rapid Flu A/B negative. Congestion of nasal sinus (R09.81: Nasal congestion) Ordered: Influenza Type A&B POC 25881 Rapid Strep POC 56556 Follow-up With When Contact Information ROBERT HOLLOWAY DARWIN [address] [facility] [place] [address]- Additional Instructions: Patient Education Pharyngitis, Gfgy-df-Rxst Problem List/Past Medical History Ongoing Anxiety Kidney stones Obesity Weight gain Historical Procedure/Surgical History delivery. Medications aspirin 81 mg Oral EC Tab, See Instructions CeleXA 20 mg Tab, 20 mg= 1 tab(s), Oral, Daily magnesium oxide 400 mg Tab, 400 mg= 1 tab(s), Oral, Daily Synthroid 50 mcg Tab, See Instructions Allergies No Known Allergies No Known Medication Allergies Social History Alcohol - Denies Alcohol Use, 03/12/2020 Substance Abuse - Denies Substance Abuse, 03/12/2020 Tobacco - De (more content not included)... Normal [facility] Comment on above: Result Comment: Elec tronically Signed By: Bordner FIRE CONTROL ASSISTANT-C, Etta\.br\Date and Time Signed: 10/14/24 09:31 EST US OB GROWTHon 10-13-2024 [place] [address] Ultrasound Report Signed Patient: TAWNYA HERRING MR#: [id number] : 1995 Acct:[id number] Age/Sex: 29 / F ADM Date: 10/13/24 Loc: US Attending Dr: Brain Way D.O. Ordering Physician: Brain Way D.O. Date of Service: 10/13/24 Procedure(s): US OB growth Accession Number(s): [id number] cc: Darwin Jones CODE ENFORCEMENT INSPECTOR; Brain Way D.O. [place] [address] Patient Name: TAWNYA HERRING MRN: [id number] date: 1995 Sex: F Assigned Patient Location: [facility] Current Patient Location: Accession/Order Number: [id number] Exam Date: 10/13/2024 13:36 Report Date: 10/13/2024 13:44 At the request of: BRAIN WAY DO Procedure: US OB growth CLINICAL DATA: Size greater than dates. ULTRASOUND OB GROWTH COMPARISON: 09/11/2024 There is a single live intrauterine gestation in cephalic presentation. There is cardiac and somatic activity with heart rate of 133 bpm. The amniotic fluid index measures 32.0 cm. The 95th percentile is 28 cm. The following measurements were obtained: Biparietal diameter 9.5 cm 38 weeks 4 days <97% Head circumference 34.2 cm 39 weeks 3 days 90% Abdominal circumference 36.2 cm 40 weeks 1 day <97% Femur length 7.1 cm 36 weeks 3 days 52% The composite ultrasound age based on these measurements is 38 weeks 5 days +/- 2 weeks 5 days. The estimated weight is 8 lbs. 2 oz. +/- 1 lb. 3 oz. US/US OB growth IMPRESSION: SINGLE LIVE INTRAUTERINE GESTATION WITH TODAY'S ULTRASOUND AGE OF 38 WEEKS 5 DAYS. POLYHYDRAMNIOS. BIOPHYSICAL PROFILE: COMPARISON: 10/04/2024 FINDINGS: TONE: 1 or more episodes of [...] greater than 2 cm [Y] 2/2 LIEN: 32.0 cm. This is polyhydramnios. Total score: 8/8 IMPRESSION: NORMAL BIOPHYSICAL PROFILE. POLYHYDRAMNIOS. Impression dictated by: Aleisha Tapia M.D.10/13/2024 1:44 PM Dictation Location: [place] [address] Electronically authenticated by: [id number] Y Date: 10/13/2024 13:44 Dictated By: Aleisha Tapia M.D. Signed By: 10/13/24 1347 DD/ 1344 TD/TT: Urban Design Consultant: [facility] Radiology, Radiologi MD diane - 10/13/2024 [place] [address] Ultrasound Report Signed Patient: TAWNYA HERRING MR#: [id number] : 1995 Acct:[id number] Age/Sex: 29 / F ADM Date: 10/13/24 Loc: US Attending Dr: Brain Way D.O. Ordering Physician: Brain Way D.O. Date of Service: 10/13/24 Procedure(s): US OB growth Accession Number(s): [id number] cc: Darwin Jones CODE ENFORCEMENT INSPECTOR; Brain Way D.O. The [address] [address] Patient Name: TAWNYA HERRING MRN: [facility]:[id number] date: 1995 Sex: F Assigned Patient Location: [facility] Current Patient Location: Accession/Order Number: [id number] Exam Date: 10/13/2024 13:36 Report Date: 10/13/2024 13:44 At the request of: BRAIN SEAMUS DO Procedure: US OB growth CLINICAL DATA: Size greater than dates. ULTRASOUND OB GROWTH COMPARISON: 09/11/2024 There is a single live intrauterine gestation in cephalic presentation. There is cardiac and somatic activity with heart rate of 133 bpm. The amniotic fluid index measures 32.0 cm. The 95th percentile is 28 cm. The following measurements were obtained: Biparietal diameter 9.5 cm 38 weeks 4 days <97% Head circumference 34.2 cm 39 weeks 3 days 90% Abdominal circumference 36.2 cm 40 weeks 1 day <97% Femur length 7.1 cm 36 weeks 3 days 52% The composite ultrasound age based on these measurements is 38 weeks 5 days +/- 2 weeks 5 days. The estimated weight is 8 lbs. 2 oz. +/- 1 lb. 3 oz. US/ OB growth IMPRESSION: SINGLE LIVE INTRAUTERINE GESTATION WITH TODAY'S ULTRASOUND AGE OF 38 WEEKS 5 DAYS. POLYHYDRAMNIOS. BIOPHYSICAL PROFILE: COMPARISON: 10/04/2024 FINDINGS: TONE: 1 or more episodes of [...] greater than 2 cm [Y] 2/2 LIEN: 32.0 cm. This is polyhydramnios. Total score: 8/8 IMPRESSION: NORMAL BIOPHYSICAL PROFILE. POLYHYDRAMNIOS. Impression dictated by: Aleisha Tapia M.D.10/13/2024 1:44 PM Dictation Location: [place] [address] Electronically authenticated by: [id number] Y Date: 10/13/2024 13:44 Dictated By: Aleisha Tapia M.D. Signed By: 10/13/24 1347 DD/ 1344 TD/TT: Urban Design Consultant: [facility] Radiology Study observation (narrative) [facility] OB GROWTHOrdered By: Halima ologleighton Radiology on 10-13-2024 [facility] Work Phone: Urinalysis macro (dipstick) panel (U)on 10-10-2024 Bilirubin, UA Negative Negative - 4(70) +++ mg/dL [facility] Blood, UA Negative Negative - 50 Dain/mcL [facility] Clarity, UA Clear [facility] Color, UA Yellow [facility] Glucose, UA Negative Negative - 2000(110) ++++ mg/dL [facility] Interpretation and review of laboratory results Abnormal [facility] Ketones, UA Negative Negative - 160(16) ++++ mg/dL [facility] Leukocytes, UA Trace Negative - 500+++ Chaparrita/mcL [facility] Nitrite, UA Negative Negative - Positive [facility] pH, UA 7 5 - 9 [facility] Protein, UA Trace Negative - 2000(20) ++++ mg/dL [facility] Spec Grav, UA 1.015 1 - 1.03 [facility] Urobilinogen, UA 1.0 0.2 - 12 mg/dL [facility] hospital US OB BPP W NON-STRESS on 10-05-2024 [place] [address] Ultrasound Report Signed Patient: TAWNYA HERRING MR#: [id number] : 1995 Acct:[id number] Age/Sex: 29 / F ADM Date: Loc: [facility] [address]: Brain Way D.O. Ordering Physician: Brain Way D.O. Date of Service: 10/04/24 Procedure(s): US OB BPP w non-stress Accession Number(s): [id number] cc: Dariwn Jones CODE ENFORCEMENT INSPECTOR; Brain Way D.O. The [place] [id number] Patient Name: TAWNYA HERRING MRN: [facility]:[id number] date: 1995 Sex: F Assigned Patient Location: [facility] Current Patient Location: [facility] Accession/Order Number: [id number] Exam Date: 10/05/2024 10:54 Report Date: 10/05/2024 10:58 At the request of: BRAIN WAY DO Procedure: US OB BPP w non-stress BIOPHYSICAL PROFILE: CLINICAL INFORMATION: decreased movement COMPARISON: 09/28/2024 There is a fetus in cephalic presentation. The reported gestational age is 35 weeks 0 days. The heart rate [id number] beats per minute. FINDINGS: TONE: 1 or [...] percentile: 7.0 - 27.9) . Total score: 8 US/US OB BPP w non-stress IMPRESSION: NORMAL BIOPHYSICAL PROFILE. BORDERLINE POLYHYDRAMNIOS. Impression dictated by: Aleisha Tapia M.D.10/05/2024 10:58 AM Dictation Location: [facility]ista Electronically authenticated by: [id number] Y Date: 10/05/2024 10:58 Dictated By: Aleisha Tapia M.D. Signed By: 10/05/24 1239 DD/ 1058 TD/TT: Urban Design Consultant: [facility] Radiology, Radiolognoel contreras MD - 10/05/2024 [place] [address] Ultrasound Report Signed Patient: TAWNYA HERRING MR#: [id number] : 1995 Acct:[id number] Age/Sex: 29 / F ADM Date: Loc: [facility] [address]: Brain Way D.O. Ordering Physician: Brain Way D.O. Date of Service: 10/04/24 Procedure(s): US OB BPP w non-stress Accession Number(s): [id number] cc: Darwin Jones CODE ENFORCEMENT INSPECTOR; Brain Way D.O. The [place] [address] Patient Name: TAWNYA HERRING MRN: [facility]:[id number] date: 1995 Sex: F Assigned Patient Location: [facility] Current Patient Location: [facility] Accession/Order Number: [id number] Exam Date: 10/05/2024 10:54 Report Date: 10/05/2024 [...] Aleisha Tapia M.D.10/05/2024 10:58 AM Dictation Location: [place] [address] Electronically authenticated by: [id number] Y Date: 10/05/2024 10:58 Dictated By: Aleisha Tapia M.D. Signed By: 10/05/24 1239 DD/ 1058 TD/TT: Urban Design Consultant: [facility] Radiology Study observation (narrative) [facility] OB BPP W NON-STRESS Ordered By: Radiologist Radiology on 10-05-2024 [facility] Work Phone: Urinalysis macro (dipstick) panel (U)on 10-05-2024 Bilirubin, UA Negative Negative - 4(70) +++ mg/dL [facility] Blood, UA Negative Negative - 50 Dain/mcL [facility] Clarity, UA Clear [facility] Color, UA Yellow [facility] Glucose, UA Negative Negative - 2000(110) ++++ mg/dL [facility] Interpretation and review of laboratory results Abnormal [facility] Ketones, UA Negative Negative - 160(16) ++++ mg/dL [facility] Leukocytes, UA Positive Negative - 500+++ Chaparrita/mcL [facility] Comment on above: small Nitrite, UA Negative Negative - Positive [facility] pH, UA 7 5 - 9 [facility] Protein, UA Negative Negative - 1999(20) ++++ mg/dL [facility] Spec Grav, UA 1.02 1 - 1.03 [facility] Urobilinogen, UA 0.2 0.2 - 12 mg/dL Critical access hospital US OB BPP W NON-STRESS on 09-29-2024 [place] [address] Ultrasound Report Signed Patient: TAWNYA HERRING MR#: [id number] : 1995 Acct:[id number] Age/Sex: 29 / F ADM Date: 09/28/24 Loc: US Attending Dr: Brain Way D.O. Ordering Physician: Brain Way D.O. Date of Service: 09/28/24 Procedure(s): US OB BPP w non-stress Accession Number(s): [id number] cc: Darwin Jones CODE ENFORCEMENT INSPECTOR; Brain Way D.O. [address] [address] Patient Name: TAWNYA HERRING MRN: [id number] date: 1995 Sex: F Assigned Patient Location: [facility] Current Patient Location: Accession/Order Number: [id number] Exam Date: 09/28/2024 19:56 Report Date: 09/29/2024 [...] Harrington M.D. Signed By: 09/29/24 0734 DD/ 1 TD/TT: Urban Design Consultant: [facility] Radiology, Radiologi MD diane - 09/29/2024 [place] [address] Ultrasound Report Signed Patient: TAWNYA HERRING MR#: [id number] : 1995 Acct:[id number] Age/Sex: 29 / F ADM Date: 09/28/24 Loc: US Attending Dr: Brain Way D.O. Ordering Physician: Brain Way D.O. Date of Service: 09/28/24 Procedure(s): US OB BPP w non-stress Accession Number(s): [id number] cc: Darwin Jones CODE ENFORCEMENT INSPECTOR; Brain Way D.O. The [place] [id number] Patient Name: TAWNYA HERRING MRN: [facility]:[id number] date: 1995 Sex: F Assigned Patient Location: [facility] Current Patient Location: Accession/Order Number: [id number] Exam Date: 09/28/2024 19:56 Report Date: 09/29/2024 [...] M.D. Signed By: 09/29/2434 DD/ 1 TD/TT: Urban Design Consultant: [facility] Radiology Study observation (narrative) [facility] US OB BPP W NON-STRESS Ordered By: Radiologist Radiology on 09-29-2024 [facility] Work Phone: US OB BPP W NON-STRESS on 09-22-2024 [place] [address] Ultrasound Report Signed Patient: TAWNYA HERRING MR#: [id number] : 1995 Acct:[id number] Age/Sex: 29 / F ADM Date: 09/22/24 Loc: [facility] [address]: Brain Way D.O. Ordering Physician: Brain Way D.O. Date of Service: 09/22/24 Procedure(s): US OB BPP w non-stress Accession Number(s): [id number] cc: Darwin Jones CODE ENFORCEMENT INSPECTOR; Brain Way D.O. [address] [address] Patient Name: TAWNYA HERRING MRN: [facility]:[id number] date: 1995 Sex: F Assigned Patient Location: [facility] Current Patient Location: [facility] Accession/Order Number: [id number] Exam Date: 09/22/2024 11:07 Report Date: 09/22/2024 11:35 At the request of: BRIAN WAY Procedure: US OB BPP w non-stress [...] Signed By: 09/22/24 1138 DD/ 1135 TD/TT: Urban Design Consultant: [facility] Radiology, Radiologi MD diane - 09/22/2024 [place] [address] Ultrasound Report Signed Patient: TAWNYA HERRING MR#: [id number] : 1995 Acct:[id number] Age/Sex: 29 / F ADM Date: 09/22/24 Loc: [facility] 252-[address]: Brain Way D.O. Ordering Physician: Brain Way D.O. Date of Service: 09/22/24 Procedure(s): US OB BPP w non-stress Accession Number(s): [id number] cc: Darwin Jones CODE ENFORCEMENT INSPECTOR; Brain Way D.O. The [place] [id number] Patient Name: TAWNYA HERRING MRN: [facility]:[id number] date: 1995 Sex: F Assigned Patient Location: [facility] Current Patient Location: [facility] Accession/Order Number: [id number] Exam Date: 09/22/2024 11:07 Report Date: 09/22/2024 [...] Walters M.D. Signed By: 09/22/24 1138 DD/ 34 TD/TT: Urban Design Consultant: [facility] Radiology Study observation (narrative) [facility] US OB BPP W NON-STRESS Ordered By: Radiologist Radiology on 09-22-2024 [facility] Work Phone: Thyroid Stimulating Hormoneo n 09-21-2024 TSH Qn 2.52 m[IU]/L Normal 0.45-5.33 [facility] Comment on above: Result Comment: PERF ORMED BY: [place] [address] PATHOLOGIST HOURLY SIGN LANGUAGE INTERPRETER MIS SCHMIDT M.D. Performed By: #### T SH3 #### [address] Thyrotropin [Units/volume] i n Serum or PlasmaOrdered By: Brain Way on 09-21-2024 TSH Qn Thyrotropin [Units/v olume] in Serum or Plasma 0.45-5.33 [facility] Urinalysis macro (dipstick) panel (U)on 09-19-2024 Bilirubin, UA Positive Negative - 4(70) +++ mg/dL [facility] Comment on above: small Blood, UA Negative Negative - 50 Dain/mcL [facility] Clarity, UA Clear [facility] Color, UA Wendy [facility] Glucose, UA Negative Negative - 2000(110) ++++ mg/dL [facility] Interpretation and review of laboratory results Abnormal [facility] Ketones, UA Positive Negative - 160(16) ++++ mg/dL [facility] Comment on above: trace Leukocytes, UA Negative Negative - 500+++ Chaparrita/mcL [facility] Nitrite, UA Negative Negative - Positive [facility] pH, UA 6 5 - 9 [facility] Protein, UA Positive Negative - 1999(20) ++++ mg/dL [facility] Comment on above: 30 Spec Grav, UA 1.025 1 - 1.03 [facility] Urobilinogen, UA 1.0 0.2 - 12 mg/dL Critical access hospital US OB BPP W NON-STRESS on 09-15-2024 [place] [address] Ultrasound Report Signed Patient: TAWNYA HERRING MR#: [id number] : 1995 Acct:[id number] Age/Sex: 29 / F ADM Date: 09/14/24 Loc: [facility] [address]: Brain Way D.O. Ordering Physician: Brain Way D.O. Date of Service: 09/14/24 Procedure(s): US OB BPP w non-stress Accession Number(s): [id number] cc: Darwin Jones CODE ENFORCEMENT INSPECTOR; Brain Way D.O. [place] [address] Patient Name: TAWNYA HERRING MRN: [facility]:[id number] date: 1995 Sex: F Assigned Patient Location: Current Patient Location: Accession/Order Number: [id number] Exam Date: 09/14/2024 19:57 Report Date: 09/15/2024 [...] M.D. Signed By: 09/15/24616 DD/ 4 TD/TT: Urban Design Consultant: [facility] Radiology, Radiolognoel contreras MD - 09/15/2024 [place] [address] Ultrasound Report Signed Patient: TAWNYA HERRING MR#: [id number] : 1995 Acct:[id number] Age/Sex: 29 / F ADM Date: 09/14/24 Loc: [facility] [address]: Brain Way D.O. Ordering Physician: Brain Way D.O. Date of Service: 09/14/24 Procedure(s): US OB BPP w non-stress Accession Number(s): [id number] cc: Darwin Jones CODE ENFORCEMENT INSPECTOR; Brain Way D.O. The [place] [address] Patient Name: TAWNYA HERRING MRN: [facility]:[id number] date: 1995 Sex: F Assigned Patient Location: US Current Patient Location: Accession/Order Number: [id number] Exam Date: 09/14/2024 19:57 Report Date: 09/15/2024 [...] Dictated By: Irene Harrington M.D. Signed By: 09/15/2417 DD/ TD/TT: Urban Design Consultant: [facility] Radiology Study observation (narrative) [facility] [employer] NOW OB BPP W NON-STRESS Ordered By: Radiologist Radiology on 09-15-2024 [employer] Work Phone: [facility] echo transthoracicon [facility] echo transthoracic [facility] [place] [address] Echocardiogram Signed Patient: Tawnya Shay MR#: [id number] : 1995 Acct:[id number] Age/Sex: 29 / F ADM Date: 09/14/24 Loc: Room: Type: [facility] Attending Dr: Mary Ellen Bruce MD Ordering Provider: Mary Ellen Bruce MD Date of Service: 09/14/24 [facility] echo transthoracic: I51.7 - Cardiomegaly Copies [...] Ellen Bruce MD 09/14/24 1116 Normal [facility] OB GROWTHon 09-11-2024 [place] [address] Ultrasound Report Signed Patient: TAWNYA HERRING MR#: [id number] : 1995 Acct:[id number] Age/Sex: 29 / F ADM Date: 09/11/24 Loc: US Attending Dr: Mya Finch Ordering Physician: Mya Finch Date of Service: 09/11/24 Procedure(s): US OB growth Accession Number(s): [id number] cc: Mya Finch; Darwin Jones NP The [address] [address] Patient Name: TAWNYA HERRING MRN: [facility]:[id number] date: 1995 Sex: F Assigned Patient Location: US Current Patient Location: US Accession/Order Number: [id number] Exam Date: 09/11/2024 10:00 Report Date: 09/11/2024 [...] Signed By: 09/11/24 1111 DD/ 1108 TD/TT: Urban Design Consultant: [facility] Radiology, Radiologi MD diane - 09/11/[address] [place] [address] Ultrasound Report Signed Patient: TAWNYA HERRING MR#: [id number] : 1995 Acct:[id number] Age/Sex: 29 / F ADM Date: 09/11/24 Loc: US Attending Dr: Mya Finch Ordering Physician: Mya Finch Date of Service: 09/11/24 Procedure(s): US OB growth Accession Number(s): [id number] cc: Mya Finch; Darwin Jones NP [place] [address] Patient Name: TAWNYA HERRING MRN: [id number] date: 1995 Sex: F Assigned Patient Location: Current Patient Location: US Accession/Order Number: [id number] Exam Date: 09/11/2024 10:00 Report Date: 09/11/2024 [...] Signed By: 09/11/24 1111 DD/ 1108 TD/TT: Urban Design Consultant: [facility] Radiology Study observation (narrative) [facility] US OB GROWTHOrdered By: Halima ologist Radiology on 09-11-2024 [facility] Work Phone: X Urineon 09-07-2024 Bacteria identified Cx Nom (U) [...] Locations R1: This test was performed at: [facility], [address] [place] [address], [facility]- , [place], [facility] Comment on above: Performed By: #### 2 [id number] #### [facility] [address] [place] [address] Urinalysis macro (dipstick) panel (U)on 09-07-2024 Bilirubin, UA Negative Negative - 4(70) +++ mg/dL [facility] Blood, UA Negative Negative - 50 Dain/mcL [facility] Clarity, UA Clear [facility] Color, UA Yellow [facility] Glucose, UA Negative Negative - 1999(110) ++++ mg/dL [facility] Interpretation and review of laboratory results Normal [facility] Ketones, UA Negative Negative - 160(16) ++++ mg/dL [facility] Leukocytes, UA Negative Negative - 500+++ Chaparrita/mcL [facility] Nitrite, UA Negative Negative - Positive [facility] pH, UA 8 5 - 9 [facility] Protein, UA Negative Negative - 2000(20) ++++ mg/dL [facility] Spec Grav, UA 1.015 1 - 1.03 [facility] Urobilinogen, UA 1.0 0.2 - 12 mg/dL Critical [facility] ED Clinical Summaryon 2024 ED Clinical Summary ED Clinical Summary [address] [address] ED Clinical Summary Person Information Name: TAWNYA HERRING [place] Age: 29 Years : 1995 Sex: Female Language: Mozambican PCP: DARWIN JONES CNP Marital Status: Single Phone: [phone] Visit Id: Visit Reason: Headache; HEADACHE, FALL [...] 09/06/2024 16:26:55 09/06/2024 16:26:55 09/06/2024 16:26:55 ADDRESS: [address] [place] [phone] PHYS DOC NOTES: MEDICAL INFORMATION: Prescriptions Given: [...] day. PATIENT EDUCATION INFORMATION: Instructions: Concussion, Adult, Ofbx-fu-Zlsm Follow up: With: Address: When: DARWIN JONES[address] [address] [phone] Business (1) In 3 days 09/09/2024 Comments: Call to schedule a follow-up appointment with your primary care provider. Use Zofran as needed for nausea/vomiting. Return to the ED with any new or worsening symptoms. DIAGNOSIS: JEFFERSON (headache) Normal [facility] ED Note-Physicianon 09-06-19 ED Note-Physician ED Note-Physician Basic Information Time Seen: Lashon Tee PA-C 09/06/2024 14:32 Chief Complaint Pt presents to [...] headache. She denies the use of any hgqa-vzn-svzbmll medications for this. Patient denies any neck [...] CT not ordered by emergency child care aide [] Head CT ordered for reasons other than trauma [] Patient is 18 or older, presenting with minor blunt head trauma. Head CT (including cosigned orders) was ordered by an emergency child care aide for trauma because (select one or more):[SATISFIES MIPS PERFORMANCE]Reasons: [] Patient is 65 or older [] Patient GCS < 15 [] Patient has focal neurologic deficit [] Patient has severe headache [] Patient is vomiting [] Severe/dangerous mechanism of injury was identified(select one or more): []MVA with: patient ejection, of another passenger, rollover, speed > 40mph, airbag deployment, recycling collections driver or passenger on ATV or [...] was ordered by an emergency child care aide for trauma, no indication specified.[DOES NOT SATISFY MIPS PERFORMANCE] Medical Decision Making Patient is a 29-year-old female with a history of anxiety who presents to the ED 30 weeks with complaints of a headache following a syncope episode from a seated position yesterday. Patient is hemodynamically st (more content not included)... Normal [facility] Comment on above: Result Comment: Elec tronically Signed By: Lashon Tee PA-C\.br\Date and Time Signed: 09/06/24 16:20 EST\.br\Electronically Co-Signed By: Lashon Tee PA-C\.br\Date and Time Co-Signed: 09/06/24 16:21 EST\.br\Electronically Co-Signed By: Flash Franco DO\.br\Date and Time Co-Signed: 09/06/24 19:47 EST ED Patient Summaryon 025 ED Patient Summary ED Patient Summary [address] [address] Patient Discharge Instructions Person Information Name: TAWNYA HERRING Age: 29 Years Arrival Date: 09/06/2024 13:57:18 Discharge Diagnosis: JEFFERSON (headache) Primary Care Physician: DARWIN JONES CNP Provider Information Primary Provider: Flash Franco DO Advanced Java Developer Analyst:Lashon Tee PA-C The exam and treatment you received in the Emergency Department were for an urgent problem and are not intended as complete care. It is important that you follow up with a doctor, nurse practitioner, or physician???s geriatric nurse assistant for ongoing care. If your symptoms [...] Follow-up Instructions: With: Address: When: DARWIN JONES [address] [place] [address] [place] [address] [phone] Business (1) In 3 days 09/09/2024 Comments: [...] participating provider. Patient Education Materials: Concussion, Adult, Nipb-qg-Gqwq A MESSAGE TO ALL PATIENTS REGARDING OPIOIDS PRESCRIPTION OPIOIDS: WHAT YOU NEED TO KNOW Prescription opioids can be used to help relieve egztwfde-xz-vjpuez pain and are often prescribed following a [...] (www.fda.gov/Drugs/Resourc esForYou). (more content not included)... Normal [facility] BLOOD BANKOrdered By: Estefany Morillo on 09-05-2024 Fibronectin. Ql (Vag fld) Negative 1 (09/05/24 5:47 AM) Normal [facility] Comment on above: Interpretive Data: [...] Anion gap [Moles/Vol] 16 mmol/L Normal 6-16 [facility] Comment on above: Performed By: #### 2 [id number] #### [facility] [address] [place] [address] Calcium [Mass/Vol] 8.5 mg/dL Low 8.9-11.1 [facility] Comment on above: Performed By: #### 2 750999 #### [facility] [address] [place] [address] Chloride [Moles/Vol] 108 mmol/L Normal 101-111 [facility] Comment on above: Performed By: #### 2 051797 #### [facility] [address] [place] [address] CO2 [Moles/Vol] 17 mmol/L Low 21-31 [facility] Comment on above: Performed By: #### 2 [id number] #### [facility] [address] [place] [address] Creatinine [Mass/Vol] 0.4 mg/dL Low 0.5-1.3 [facility] Comment on above: Performed By: #### 2 [id number] #### [facility] [address] [place] [address] Glucose [Mass/Vol] 103 mg/dL Normal 55-199 [facility] Comment on above: Performed By: #### 2 220053 #### [facility] [address] [place] [address] Potassium [Moles/Vol] 3.6 mmol/L Normal 3.5-5.3 [facility] Comment on above: Performed By: #### 2 056468 #### [facility] [address] [place] [address] Sodium [Moles/Vol] 137 mmol/L Normal 135-145 [facility] Comment on above: Performed By: #### 2 086258 #### [facility] [address] [place] [address] Urea nitrogen [Mass/Vol] 9 mg/dL Normal 5-21 [facility] Comment on above: Performed By: #### 2 795110 #### [facility] [address] [place] [address] Urea nitrogen/Creatinine [Mass ratio] 22 No Units High 10-20 [facility] Comment on above: Performed By: #### 2 166190 #### [facility] [address] [place] [address] CBC w/ Auto Diffon 5 Basophils/100 WBC (Bld) 0.4 % Normal 0.0-2.0 [facility] Comment on above: Performed By: #### 2 [id number] #### [facility] [address] [place] [address] Basophils/Leukocytes Auto (Bld) [Pure # fraction] 0.1 E9/L Normal 0.0-0.2 [facility] Comment on above: Performed By: #### 2 690266 #### [facility] [address] [place] [address] Eosinophils (Bld) [#/Vol] 0.0 E9/L Normal 0.0-0.5 [facility] Comment on above: Performed By: #### 2 360157 #### [facility] [address] [place] [address] Eosinophils/100 WBC (Bld) 0.3 % Normal 0.0-8.0 [facility] Comment on above: Performed By: #### 2 645261 #### [facility] [address] [place] [address] Erythrocyte distribution width (RBC) [Ratio] 12.7 % Normal 10.9-14.2 [facility] Comment on above: Performed By: #### 2 815431 #### [facility] [address] [place] [address] Hematocrit (Bld) [Volume fraction] 37.4 % Normal 34.0-46.0 [facility] Comment on above: Performed By: #### 2 933069 #### [facility] [address] [place] [address] Hemoglobin (Bld) [Mass/Vol] 13.2 g/dL Normal 12.0-16.0 [facility] Comment on above: Performed By: #### 2 238003 #### [facility] [address] [place] [address] Lymphocytes (Bld) [#/Vol] 1.1 E9/L Normal 1.0-4.0 [facility] Comment on above: Performed By: #### 2 540167 #### [facility] [address] [place] [address] Lymphocytes/100 WBC (Bld) 7.0 % Low 14.0-50.0 [facility] Comment on above: Performed By: #### 2 700270 #### [facility] Laboratory [address] [place] [address] MCH (RBC) [Entitic mass] 33.0 pg Normal 27.0-34.0 [facility] Comment on above: Performed By: #### 2 [id number] #### [facility] [address] [place] [address] MCHC (RBC) [Mass/Vol] 35.4 g/dL Normal 31.4-36.0 [facility] Comment on above: Performed By: #### 2 [id number] #### [facility] [address] [place] [address] MCV (RBC) [Entitic vol] 93.3 fL Normal 80.0-100.0 [facility] Comment on above: Performed By: #### 2 [id number] #### [facility] [address] [place] [address] Monocytes (Bld) [#/Vol] 0.7 E9/L Normal 0.2-1.0 [facility] Comment on above: Performed By: #### 2 [id number] #### [facility] [address] [place] [address] Neutrophils (Bld) [#/Vol] 13.7 E9/L High 2.0-7.5 [facility] Comment on above: Performed By: #### 2 [id number] #### [facility] [address] [place] [address] Neutrophils/100 WBC (Bld) 87.6 % High 36.0-75.0 [facility] Comment on above: Performed By: #### 2 [id number] #### [facility] [address] [place] [address] Platelet 324.0 E9/L Normal 150.0-500. 0 [facility] Comment on above: Performed By: #### 2 [id number] #### [facility] [address] [place] [address] Platelet mean volume (Bld) [Entitic vol] 8.3 fL Normal 6.4-10.8 [facility] Comment on above: Performed By: #### 2 [id number] #### [facility] [address] [place] [address] RBC (Bld) [#/Vol] 4.0 E12/L Low 4.3-5.9 [facility] Comment on above: Performed By: #### 2 [id number] #### [facility] [address] [place] [address] WBC corrected for nucl RBC Auto (Bld) [#/Vol] 15.6 E9/L High 4.0-11.0 [facility] Comment on above: Performed By: #### 2 [id number] #### [facility] [address] [place] [address] CHEMISTRYOrdered By: SYSTEM SYSTEM on 09-05-2024 Albumin [...] 2024 ED Clinical Summary ED Clinical Summary [address] [address] ED Clinical Summary Person Information Name: TAWNYA [facility]ERRING [facility] Age[facility] 29 Years : 1995 Sex: Female Language: Mozambican PCP: DARWIN JONES CNP Marital Status: Single Phone: [phone] Visit Id: Visit Reason: Abdominal pain - ; Vomiting - ; Syncope/Near syncope; PASSED OUT HIT HEAD,NAUSEA DIARRHEA VOMITING 30 WKS PREG Speciality: Acuity: 2 Enc Type: Emergency Med Service: Emergency Arrival: 09/05/2024 03:02:46 Discharge: LOS: 000 01:33 Checkin: 09/05/2024 03:02:46 Checkout: 09/05/2024 04:35:45 Dispo Type: Admitted as IP to this [facility] EVENTS: Event Name Event Status Request [...] 09/05/2024 04:35:45 09/05/2024 04:35:45 09/05/2024 04:35:45 ADDRESS: [address] [place] [phone] [facility] DOC NOTES: MEDICAL INFORMATION: Prescriptions Given: Medications to Continue with No Changes Other Medications citalopram (CeleXA 20 mg Tab) 1 Tablets By Mouth every day. PATIENT EDUCATION INFORMATION: Instructions: Syncope, Adult, Yvfu-pu-Hsxn; Nausea and Vomiting, Adult, Fohl-ox-Rfhr; Diarrhea, Adult, Abls-qw-Upfz; Dehydration, Adult, Gwhd-mp-Qdbd Follow up: With: Address: When: D[address]WIN ROB[address] [phone] Business (1) In 3 days 09/08/2024 Comments: Please follow-up with Dr. Way for further evaluation management. Please return to the ED for any new or worsening symptoms. DIAGNOSIS: Dehydration; Diarrhea, unspecified; Nausea, vomiting, and diarrhea; Syncope Normal [facility] ED Note-Nursingon 09-05-2024 ED Note-Nursing ED Note-Nursing OB at bedside [facility] ED Note-Physicianon 09-05-19 ED Note-Physician ED Note-Physician Basic Information Time Seen: Gabriel Curtis DO 09/05/2024 03:04 Chief Complaint States syncopal episode in bathroom on toilet, striking head on cabinet. Diarrhea, nausea and vomiting since 2199. ABD cramping since 2299. Pt is 30 weeks History of Present Illness Patient is a 29-year-old female G3, P2 currently 30 weeks gestation following with Dr. Wya presenting to the ED for evaluation of [...] and Complexity of Problems Differential Diagnosis: [] [facility] Data External documents reviewed: [] [...] Dayna 50 mL [F] 50 mL + [id number] [F] 25 mg, IV Piggyback Disposition Plan [...] Use, 03/12/2020 (more content not included)... Normal [facility] Comment on above: Result Comment: Elec tronically Signed By: Gabriel Curtis DO\.br\Date and Time Signed: 09/05/24 04:22 EST ED Patient Summaryon 025 ED Patient Summary ED Patient Summary [place] [id number] Patient Discharge Instructions Person Information Name: TAWNYA HERRING Age: 29 Years Arrival Date: 09/05/2024 03:02:46 Discharge Diagnosis: Dehydration; Diarrhea, unspecified; Nausea, vomiting, and diarrhea; Syncope Primary Care Physician: DARWIN JONES CNP Provider Information Primary Provider: Gabriel Curtis DO Advanced Java Developer Analyst:None The exam and treatment you received in the Emergency Department were for an urgent problem and are not intended as complete care. It is important that you follow up with a doctor, nurse practitioner, or physician???s geriatric nurse assistant for ongoing care. If your symptoms [...] Instructions: With: Address: When: DARWIN JONES [address] [place] [phone] Business (1) In 3 days 09/08/2024 Comments: Please follow-up with Dr. Way for further evaluation management. Please return to the ED for any new or worsening symptoms. In the event that this physician does not participate in your insurance network, please consult with your insurance company to find a nearby participating provider. Patient Education Materials: Syncope, Adult, Yqfs-ei-Mnog; Nausea and Vomiting, Adult, Zkjg-uy-Ylkv; Diarrhea, Adult, Naky-jz-Iaux; Dehydration, Adult, Peot-ye-Aiwj A MESSAGE TO ALL PATIENTS REGARDING OPIOIDS PRESCRIPTION OPIOIDS: WHAT YOU NEED TO KNOW Prescription opioids can be used to help relieve zhlyhykw-cw-ftszjl pain and are often prescribed following a [...] down t (more content not included)... Normal [facility] Extra Blueon 09-05-2024 Tube Collected Plasma Yes Invalid Interpretation Code [facility] Comment on above: Performed By: #### 1 [id number] #### [facility] [address] [place] [address] FFBanner 09-05-2024 Fibronectin. Ql (Vag fld) Negative Normal [facility] Comment on above: Result Comment: In [...] the antibody-antigen reaction. Performed By: #### 1 [id number] #### [facility] Laboratory [address] [place] [address] HEMATOLOGYOrdered By: SYSTEM SYSTEM on 09-05-2024 Basophils/100 [...] 09-05-2024 Albumin [Mass/Vol] 3.8 g/dL Normal 3.3-5.0 [facility] Comment on above: Performed By: #### 2 [id number] #### [facility] [address] [place] [address] Albumin/Globulin (S) [Mass conc ratio] 1.5 Normal 1.1-2.2 [facility] Comment on above: Performed By: #### 2 [id number] #### [facility] [address] [place] [address] ALP [Catalytic activity/Vol] 80 Int._Unit/L Normal 21-98 [facility] Comment on above: Performed By: #### 2 [id number] #### [facility] [address] [place] [address] ALT No additional P-5'-P [Catalytic activity/Vol] 20 Int._Unit/L Normal 6-46 [facility] Comment on above: Performed By: #### 2 [id number] #### [facility] [address] [place] [address] AST [Catalytic activity/Vol] 15 Int._Unit/L Normal 5-43 [facility] Comment on above: Performed By: #### 2 110089 #### [facility] [address] [place] [address] Bilirubin [Mass/Vol] 0.6 mg/dL Normal 0.0-1.1 [facility] Comment on above: Performed By: #### 2 [id number] #### [facility] [address] [place] [address] Bilirubin.direct [Mass/Vol] 0.1 mg/dL Normal 0.0-0.4 [facility] Comment on above: Performed By: #### 2 [id number] #### [facility] [address] [place] [address] Bilirubin.indirect [Mass or moles/Vol] 0.5 mg/dL Normal 0.1-0.9 [facility] Comment on above: Performed By: #### 2 [id number] #### [facility] [address] [place] [address] Globulin (S) [Mass/Vol] 2.6 g/dL Normal 1.4-4.0 [facility] Comment on above: Performed By: #### 2 [id number] #### [facility] [address] [place] [address] Protein [Mass/Vol] 6.4 g/dL Normal 6.0-7.8 [facility] Comment on above: Performed By: #### 2 [id number] #### [facility] [address] [place] [address] Influenza A&B Agon Influenzae A Ag Negative Normal Negative [facility] Comment on above: Performed By: #### 1 [id number] #### [facility] [address] [place] [address] Influenzae B Ag Negative Normal Negative [facility] Comment on above: Result Comment: Test sensitivity and specificity vary for age group, specimen type, antigen types, and prevalence of disease. Test results must be evaluated in conjunction with other clinical data available to the physician. Individuals who received nasally administered Influenza A vaccine may have positive test results up to 3 days after vaccination. Performed By: #### 1 [id number] #### [facility] [address] [place] [address] Inpatient Clinical Summaryon 09-05-2024 Inpatient Clinical Summary Inpatient Clinical Summary [address], [place] [address] Clinical Summary Person Information Name: TAWNYA HERRING [facility]ysi/[facility] Age: 29 Years : 1995 Sex: Female PCP: DARWIN JONES CNP Marital Status: Single Phone: [phone] Race: White Ethnicity: Non- or Language: Mozambican Visit Id: Visit Reason: Abdominal pain - ; Vomiting - ; Syncope/Near syncope; PASSED OUT HIT HEAD,NAUSEA DIARRHEA VOMITING 30 WKS PREG Speciality: Acuity: Obs Enc Type: Observation Med Service: Obstetrics Arrival: 09/05/2024 03:02:46 Discharge: 09/05/2024 15:50:00 Dispo Type: Home (Routine DC) Address: [address] [place] [phone] Provider Notes: Diagnosis: Dehydration; Diarrhea, unspecified; Nausea, [...] range between ( 80.0 and 100.0 ) [place] Auto: 4.7 % -- Normal range between ( 4.0 and 14.0 ) MPV: 8.3 fL -- Normal range between ( 6.4 and 10.8 ) Neutro Auto: 87.6 % -- Normal range between ( 36.0 and 75.0 ) Platelet: 324.0 E9/L -- Normal range between ( 150.0 and 500.0 ) WBC: 15.6 E9/L -- Normal range between ( 4.0 and 11.0 ) [place] Absolute: 0.7 E9/L -- Normal range between [...] 38.19 kg/m2 (more content not included)... Normal [facility] Inpatient Patient Summaryon 09-05-2024 Inpatient Patient Summary Inpatient Patient Summary [address] [address] Patient Discharge Instructions PERSON INFORMATION Name: TAWNYA HERRING Date of : 1995 Current Date: 09/05/2024 16:15:55 PHYSICIANS Admitting Physician: Pham GALLAGHER, Rogelio Robins Primary Care Physician: DARWIN JONES CNP PCP Phone Number: [phone] Comment: Discharge Diagnosis: Dehydration; Diarrhea, unspecified; Nausea, [...] With: Address: When: Brain [address] [facility], [address] [place] [address] [place] [address] Business (1) In 2 days 09/07/2024 Comments: Call 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 Way for further evaluation management. Please return to the ED for any new or worsening symptoms. In the event that this physician does not participate in your insurance network, please consult with your insurance company to find a nearby participating provider. Comment: IMONAMIMI TAWNYA Romie, have received the attached patient education materials/instructions [...] until you feel better. Medicines ??? Take ijfc-txa-tjoerbx and prescription medicines only as told by [...] ? Flexing (more content not included)... Normal [facility] Lipase Levelon 09-05-2024 Lipase [Catalytic activity/Vol] 18 U/L Normal 13-58 [facility] Comment on above: Performed By: #### 2 [id number] #### [facility] [address] [place] [address] MICRO OTHER TESTSOrdered By: Barrington Maxwell on 09-05-2024 Influenzae A Ag Negative (09/05/24 3:34 AM) Normal Negative [facility] Sero Influenzae B Ag Negative 3 (09/05/24 3:34 AM) Normal Negative [facility] Comment on above: Interpretive Data: [...] Troponin HS 2.70 pg/mL Low 10.10-27.1 0 [facility] Comment on above: Result Comment: The 95% CI (Confidence Interval) PPV (Positive Predictive Value) for myocardial infarction in females is 38 pg/mL, in males 51 pg/mL. The results should be used in conjunction with clinical conditions of myocardial infarction. (Access High Sensitivity Troponin I Instructions For Use, [employer], March 2018) Performed By: #### 1 [id number] #### [facility] [address] [place] [address] UA with Cult Rflxon 09-05-19 25 Bacteria Auto Ql (U) Trace Normal Trace [facility] Comment on above: Performed By: #### 4 [id number] #### [facility] [address] [place] [id number] Bilirubin Ql (U) 1+ mg/dL Abnormal Negative [facility] Comment on above: Performed By: #### 4 [id number] #### [facility] [address] [place] [address] Clarity (U) Turbid Abnormal Clear [facility] Comment on above: Performed By: #### 4 [id number] #### [facility] [address] [place] [address] Color (U) Dark-Yellow Abnormal Yellow [facility] Comment on above: Result Comment: Micr oscopic readings are only performed on those samples that meet specific criteria set forth by [facility]. Performed By: #### 4 [id number] #### [facility] [address] [place] [address] Epithelial cells.squamous Auto (Urine sed) [#/Area] 5-8 Invalid Interpretation Code [facility] Comment on above: Performed By: #### 4 [id number] #### [facility] [address] [place] [address] Glucose Ql (U) Trace Abnormal Negative [facility] Comment on above: Performed By: #### 4 [id number] #### [facility] [address] [place] [address] Hemoglobin Auto test strip (U) [Mass/Vol] Negative Normal Negative [facility] Comment on above: Performed By: #### 4 [id number] #### [facility] [address] [place] [address] Ketones Auto test strip Ql (U) 1+ mg/dL Abnormal Negative [facility] Comment on above: Performed By: #### 4 [id number] #### [facility] [address] [place] [address] Leukocyte esterase Auto test strip Ql (U) 25 Chaparrita/uL Normal Negative [facility] Comment on above: Performed By: #### 4 [id number] #### [facility] [address] [place] [address] Mucus Auto Ql (U) 4+ [id number] Abnormal Negative F [facility] Comment on above: Performed By: #### 4 [id number] #### [facility] [address] [place] [address] Nitrite Auto test strip Ql (U) 1+ mg/dL Abnormal Negative [facility] Comment on above: Performed By: #### 4 [id number] #### [facility] [address] [place] [address] pH (U) 5.5 [pH] Invalid Interpretation Code 5.0-9.0 [facility] Comment on above: Performed By: #### 4 [id number] #### [facility] [address] [place] [address] Protein Ql (U) 1+ mg/dL Abnormal Negative [facility] Comment on above: Performed By: #### 4 [id number] #### [facility] [address] [place] [address] RBC Ql (U) 0-3 Normal 0-3 [facility] Comment on above: Performed By: #### 4 [id number] #### [facility] [address] [place] [address] Specific gravity (U) [Rel density] 1.029 Invalid Interpretation Code 1.005-1.03 0 [facility] Comment on above: Performed By: #### 4 [id number] #### [facility] [address] [place] [address] Urobilinogen (U) [Mass/Vol] 2 mg/dL Abnormal Negative [facility] Comment on above: Performed By: #### 4 [id number] #### [facility] [address] [place] [address] WBC Auto (Urine sed) [#/Area] 0-5 Normal 0-5 [facility] Comment on above: Performed By: #### 4 [id number] #### [facility] [address] [place] [address] Type of Urine collection method Clean Catch Normal [facility] Comment on above: Performed By: #### 4 [id number] #### [facility] [address] [place] [address] URINALYSISOrdered By: SYSTEM SYSTEM on 09-05-2024 Bacteria Auto Ql (U) Trace /HPF Normal Trace/HPF FT UA Auto SS Bilirubin Ql (U) 1+ mg/dL Invalid Interpretation Code Negativemg /dL [facility] UA Auto SS Clarity (U) Turbid *ABN* (09/05/24 5:25 AM) Invalid Interpretation Code Clear [facility] UA Auto SS Color (U) Dark-Yellow 2 *ABN* (09/05/24 5:25 AM) Invalid Interpretation Code Yellow [facility] UA Auto SS Comment on above: Interpretive Data: M icroscopic readings are only performed on those samples that meet specific criteria set forth by [facility]. Epithelial cells.squamous Auto (Urine sed) [...] (U) 25 Chaparrita/uL Chaparrita/uL Normal NegativeLe u/uL FT UA Auto SS Mucus Auto Ql (U) 4+ graded/LPF Invalid Interpretation Code Negativegr aded/LPF FT UA Auto SS Nitrite Auto test strip Ql (U) 1+ mg/dL Invalid Interpretation Code Negativemg /dL FT UA Auto SS pH (U) 5.5 *NA* (09/05/24 5:25 AM) Invalid Interpretation Code 5.0 - 9.0 [facility] UA Auto SS Protein Ql (U) 1+ mg/dL Invalid Interpretation Code Negativemg /dL FT UA Auto SS RBC Ql (U) 0-3 graded/HPF Normal 0-3graded/ HPF FT UA Auto SS Specific gravity (U) [Rel density] 1.029 *NA* (09/05/24 5:25 AM) Invalid Interpretation Code 1.005 - 1.030 [facility] UA Auto SS Urobilinogen (U) [Mass/Vol] 2 mg/dL Invalid Interpretation Code Negativemg /dL [facility] UA Auto SS WBC Auto (Urine sed) [#/Area] 0-5 graded/HPF Normal 0-5graded/ HPF FT UA Auto SS URINALYSISOrdered By: Rica Islas on 09-05-2024 UA Spec Desc Clean Catch (09/05/24 5:25 AM) Normal [facility] UA Auto SS eGFRon 09-05-2024 eGFR 138 mL/min/1.73 m2 Normal >=59 [facility] Comment on above: Performed By: #### 1 [id number] #### [facility] [address] [place] [address] ALL CBC WITH AUTO DIFFon BASOPHILS ABSOLUTE AUTO 0 [facility] Basophils/100 WBC (Bld) 0.2 % 0.2 - 2.0 % [facility] Eosinophils/100 WBC (Bld) 0.8 % Low 0.9 - 7.0 % [facility] Erythrocyte distribution width (RBC) [Ratio] 12.1 % 11.0 - 15.0 % [facility] Hematocrit (Bld) [Volume fraction] 33.9 % Low 36.0 - 48.0 % [facility] Hemoglobin (Bld) [Mass/Vol] 11.6 g/dL Low 12.0 - 16.0 g/dL [facility] IMMATURE GRANULOCYTES ABS AUTO 0.03 [facility] Immature granulocytes/100 WBC (Bld) 0.3 % 0.0 - 0.5 % [facility] Interpretation and review of laboratory results Abnormal [facility] LYMPHOCYTES ABSOLUTE AUTO 1.8 [facility] Lymphocytes/100 WBC (Bld) 19.8 % Low 20.5 - 60.0 % [facility] MCH (RBC) [Entitic mass] 32.9 pg 26.7 - 34.0 pg [facility] MCHC (RBC) [Mass/Vol] 34.2 g/dL 29.9 - 35.2 g/dL [facility] MCV (RBC) [Entitic vol] 96 fL 81.0 - 99.0 fL [facility] MONOCYTES ABSOLUTE AUTO 0.5 [facility] Monocytes/100 WBC (Bld) 5.4 % 1.7 - 12.0 % [facility] NEUTROPHILS ABSOLUTE AUTO 6.6 High [facility] Neutrophils/100 WBC (Bld) 73.5 % 43.0 - 75.0 % [facility] Platelet mean volume (Bld) [Entitic vol] 10.2 fL 9.5 - 13.5 fL [facility] TBH EO # 0.1 [facility] TB PLT 287 [facility] RBC 3.53 Low [facility] WBC 9 [facility] Basophils Auto (Bld) [#/Vol] on 08-25-2024 Basophils (Bld) [#/Vol] Automated basophil count 0.0-0.1 [facility] Basophils/100 WBC Auto (Bld) on 08-25-2024 Basophils/100 WBC (Bld) Automated basophil % 0.2-2.0 [facility] Eosinophils/100 WBC Auto (Bl d)on 08-25-2024 Eosinophils/100 WBC (Bld) Automated eosinophil % Low 0.9-7.0 [facility] Erythrocyte distribution wid th Auto (RBC) [Ratio]on 08-25-2024 Erythrocyte distribution width (RBC) [Ratio] Erythrocyte distribution width [Ratio] by Automated count 11.0-15.0 [facility] FPG ECG *CARDIOLOGY ONLY*on 08-25-2024 FPG ECG *CARDIOLOGY ONLY* [facility] [place] [address] Electrocardiograph Report Signed Patient: Tawnya Herring MR#: [id number] 29 : 1995 Acct:[id number] Age/Sex: 29 / F ADM Date: 08/25/24 [facility]: Type: [facility] Attending Dr: Mary Ellen Bruce MD Ordering [...] Normal ECG Confirmed by Mary Ellen Bruce ([id number]) on 08/25/2024 1:42:57 PM Referred By: Electronically Signed By: Mary Ellen Bruce Transcribed By: MUS Signed By Mary Ellen Bruce MD 5 1342 Normal [facility] Hematocrit Auto (Bld) [Volum e fraction]on 08-25-2024 Hematocrit (Bld) [Volume fraction] Hematocrit [Volume Fraction] of Blood by Automated count Low 36.0-48.0 [facility] Hemoglobin [Mass/volume] in Bloodon 08-25-2024 Hemoglobin (Bld) [Mass/Vol] Hemoglobin [Mass/volume] in Blood Low 12.0-16.0 [facility] Laboratory - Chemistry and C hemistry - challengeon 08-25-2024 Glucose [Mass/Vol] 131 mg/dL High <130 [facility] Laboratory - Hematology and Cell countson 08-25-2024 Immature granulocytes/100 WBC (Bld) 0.3 % 0.0-0.5 [facility] Leukocytes [#/volume] correc hamilton for nucleated erythrocytes in Blood by Automated counon 08-25-2024 WBC corrected for nucl RBC Auto (Bld) [#/Vol] Leukocytes [#/volume] corrected for nucleated erythrocytes in Blood by Automated coun 4.0-11.0 [facility] Lymphocytes Auto (Bld) [#/Vo l]on 08-25-2024 Lymphocytes (Bld) [#/Vol] Lymphocytes [#/volume] in Blood by Automated count 1.2-3.8 [facility] Lymphocytes/100 WBC Auto (Bl d)on 08-25-2024 Lymphocytes/100 WBC (Bld) Lymphocytes/100 leukocytes in Blood by Automated count Low 20.5-60.0 [facility] MCH Auto (RBC) [Entitic mass ]on 08-25-2024 MCH (RBC) [Entitic mass] MCH [Entitic mass] by Automated count 26.7-34.0 [facility] MCHC Auto (RBC) [Mass/Vol]on 08-25-2024 MCHC (RBC) [Mass/Vol] MCHC [Mass/volume] by Automated count 29.9-35.2 [facility] MCV Auto (RBC) [Entitic vol] on 08-25-2024 MCV (RBC) [Entitic vol] MCV [Entitic volume] by Automated count 81.0-99.0 [facility] Monocytes Auto (Bld) [#/Vol] on 08-25-2024 Monocytes (Bld) [#/Vol] Automated blood monocyte count 0.3-0.8 [facility] Monocytes/100 WBC Auto (Bld) on 08-25-2024 Monocytes/100 WBC (Bld) Automated monocyte % 1.7-12.0 [facility] Neutrophils Auto (Bld) [#/Vo l]on 08-25-2024 Neutrophils (Bld) [#/Vol] Neutrophils [#/volume] in Blood by Automated count High 1.4-6.5 [facility] Neutrophils/100 WBC Auto (Bl d)on 08-25-2024 Neutrophils/100 WBC (Bld) Automated neutrophil % 43.0-75.0 [facility] No Panel Informationon 08-25 Eosinophils # (Auto) 0.1 10 3/uL 0.0-0.7 [facility] Immature Granulocyte # (Auto) 0.03 10 3/uL 0.00-0.03 [facility] Platelet mean volume Auto (B ld) [Entitic vol]on 08-25-2024 Platelet mean volume (Bld) [Entitic vol] Platelet mean volume [Entitic volume] in Blood by Automated count 9.5-13.5 [facility] Platelets Auto (Bld) [#/Vol] on 08-25-2024 Platelets (Bld) [#/Vol] Platelets [#/volume] in Blood by Automated count 150-450 [facility] RBC Auto (Bld) [#/Vol]on RBC (Bld) [#/Vol] Erythrocytes [#/volu me] in Blood by Automated count Low 4.20-5.40 [facility] Urinalysis macro (dipstick) panel (U)on 08-23-2024 Bilirubin, UA Negative Negative - 4(70) +++ mg/dL [facility] Blood, UA Negative Negative - 50 Dain/mcL [facility] Clarity, UA Clear [facility] Color, UA Yellow [facility] Glucose, UA Negative Negative - 2000(110) ++++ mg/dL [facility] Interpretation and review of laboratory results Abnormal [facility] Ketones, UA Negative Negative - 160(16) ++++ mg/dL [facility] Leukocytes, UA Positive Negative - 500+++ Chaparrita/mcL [facility] Comment on above: small Nitrite, UA Negative Negative - Positive [facility] pH, UA 7 5 - 9 [facility] Protein, UA Negative Negative - 2000(20) ++++ mg/dL [facility] Spec Grav, UA 1.02 1 - 1.03 [facility] Urobilinogen, UA 0.2 0.2 - 12 mg/dL [facility] Thyroid Stimulating Hormoneo n 07-31-2024 TSH Qn 2.07 m[IU]/L Normal 0.45-5.33 [facility] Comment on above: Result Comment: PERF ORMED BY: [facility] [address] [place] [address] PATHOLOGIST HOURLY SIGN LANGUAGE INTERPRETER MIS SCHMIDT M.D. Performed By: #### T SH3 ####[facility] [id number] [place] [address] [facility] Thyrotropin [Units/volume] i n Serum or PlasmaOrdered By: Brain Way on 07-31-2024 TSH Qn Thyrotropin [Units/v olume] in Serum or Plasma 0.45-5.33 [facility] Urinalysis macro (dipstick) panel (U)on 07-11-2024 Bilirubin, UA Negative Negative - 4(70) +++ mg/dL [facility] Blood, UA Negative Negative - 50 Dain/mcL [facility] Clarity, UA Clear [facility] Color, UA Yellow [facility] Glucose, UA Negative Negative - 1999(110) ++++ mg/dL [facility] Interpretation and review of laboratory results Abnormal [facility] Ketones, UA Negative Negative - 160(16) ++++ mg/dL [facility] Leukocytes, UA Trace Negative - 500+++ Chaparrita/mcL [facility] Nitrite, UA Negative Negative - Positive [facility] pH, UA 6 5 - 9 [facility] Protein, UA Negative Negative - 1999(20) ++++ mg/dL [facility] Spec Grav, UA 1.01 1 - 1.03 [facility] Urobilinogen, UA 0.2 0.2 - 12 mg/dL [facility] Alpha-fetoprotein (AFP) luis urement (lmwwsviv-tl-gafuta)Ordered By: rBain Way on 06-28-2024 AFP [MoM] Alpha-fetoprotein (A FP) measurement (smukshzp-ma-dfbfft) . [facility] Determination of gestational ageOrdered By: Brain Way on 06-28-2024 Gestational age Assess gestational age . [facility] Estimation of maternal age-s pecific risk of Down syndrome birthOrdered By: Brain Way on 06-28-2024 Age [Time] Estimation of matern al age-specific risk of Down syndrome . [facility] Human chorionic gonadotropin (hCG) multiple of median measurementOrdered By: Brain Way on 06-28-2024 HCG [MoM] Human chorionic gonadotropin (hCG) multiple of median measurement . [facility] Insulin dependent diabetes m ellitus detectionOrdered By: Brain Way on 06-28-2024 Insulin dependent diabetes mellitus Ql Insulin dependent diabetes mellitus detection . [facility] Interpretation of serum or p lasma second trimester quad maternal screen (narrative reOrdered By: Brain Way on 06-28-2024 Second trimester quad maternal screen Mathew [Interp] Interpretation of serum or plasma second trimester quad maternal screen (narrative re . [facility] Comment on above: Interpretation:An in terpretation CANNOT be provided for this patientbecause necessary patient information was not provided (oneor more of: gestational age, weight, or patient age).Please call us with new clinical information.Recalculations are not recommended when gestational datingby LMP and ultrasound are within 10 days. No Panel InformationOrdered By: Brain Way on 06-28-2024 AFP Triple Screen Comment Comment . [facility] Comment on above: Stephanie Pinto , Ph.D., DABCCDirectorReferences: Available Upon Request.Multiples Of Median Cutoffs Abbreviation Definitions For AFP Elevations IDD- Insulin Dep DiabetesSingleton 2.5 Black 2.8 OSBR- Open Spina BifidaIDD 2.0 Twins 4.5 RiskDSR Cutoff 1:270 DSR- Down Syndrome RiskT18 Cutoff 1:100 T18- Trisomy 18For further inquiries contact Cov[employer] Servicesat [phone].This test was developed and its performance characteristicsdetermined by [employer]. It has not been cleared or approvedby the Food and Drug Administration.Performed at: [facility] [id number] [place], [place] [id number] Director: Aubrey Moreno [facility], Phone: [phone] Alpha Fetoprotein Results Received Report . [facility] Down Syndrome Age Equivalent See interpretation. . [facility] Gestational Age Calculation Method Ultrasound . [facility] Comment on above: 18:5 on 06/12/2024 Maternal Quad Test Risk See interpretation. . [facility] Maternal Race . [facility] Multiple No . [facility] Serum or plasma jmhvv-2-ggmm protein measurement (mass/volume)Ordered By: Brain Way on 06-28-2024 AFP [Mass/Vol] Serum or plasma sdjtc-7-naxggxdxuuj measurement (mass/volume) . [facility] Serum or plasma inhibin A me asurement (adjusted dufsogwh-pi-rtrwjo)Ordered By: Brain Way on 06-28-2024 Inhibin A adjusted [MoM] Serum or plasma inhibin A measurement (adjusted hgeltpvo-rd-vlpywa) . [facility] Serum or plasma inhibin A me asurement (mass/volume)Ordered By: Brain Way on 06-28-2024 Inhibin A [Mass/Vol] Inhibin A [Mass/vol ume] in Serum or Plasma . [facility] Serum or plasma total combin ed intact choriogonadotropin and beta subunit measurementOrdered By: Brain Way on 06-28-2024 HCG.intact+Beta subunit Qn Serum or plasma total combined intact choriogonadotropin and beta subunit measurement . [facility] Serum or plasma unconjugated estriol (E3) measurement (adjusted zdrkouna-vt-vokzwa)Ordered By: Brain Way on 06-28-2024 E3.unconjugated adjusted [MoM] Serum or plasma unconjugated estriol (E3) measurement (adjusted hwozfanr-gs-ssylue) . [facility] Serum or plasma unconjugated estriol (E3) measurement (mass/volume)Ordered By: Brain Way on 06-28-2024 E3.unconjugated [Mass/Vol] Serum or plasma unconjugated estriol (E3) measurement (mass/volume) . [facility] Thyroid Stimulating Hormoneo n 06-28-2024 TSH Qn 3.44 m[IU]/L Normal 0.45-5.33 [facility] Comment on above: Result Comment: PERF ORMED BY: [place] [address] PATHOLOGIST HOURLY SIGN LANGUAGE INTERPRETER JORDI SMITH M.D. Performed By: #### T SH3 #### [place] [address] [place] Thyrotropin [Units/volume] i n Serum or PlasmaOrdered By: Brain Way on 06-28-2024 TSH Qn Thyrotropin [Units/v olume] in Serum or Plasma 0.45-5.33 [facility] Trisomy 21 risk determinatio n in fetusOrdered By: Brain Way on 06-28-2024 Trisomy 21 risk Qn (fetus) Trisomy 21 risk determination in fetus . [facility] US OB >= 14 weeks Fetuson US OB >= 14 weeks Fetus [facility] [place] [address] [place] [address] Ultrasound Report Signed Patient: Tawnya Herring MR#: [id number] 29 : 1995 Acct:[id number] Age/Sex: 28 / F ADM Date: 06/22/24 Loc: Room: Type: [facility] Attending Dr: Brain Way DO Ordering Provider: [...] Norton Jr., D.O.06/22/2024 4:00 PM Dictation Location: [employer] Tech: Rae De Paz Transcribed By: AGUILAR 06/22/24 1600 Dictated By: Zay Norton Jr, DO 06/22/24 1552 Signed By: 11/07/24 1600 Normal [facility] Urinalysis macro (dipstick) panel (U)on 06-12-2024 Bilirubin, UA Negative Negative - 4(70) +++ mg/dL [facility] Blood, UA Negative Negative - 50 Dain/mcL [facility] Clarity, UA Clear [facility] Color, UA Yellow [facility] Glucose, UA Negative Negative - 1999(110) ++++ mg/dL [facility] Interpretation and review of laboratory results Abnormal [facility] Ketones, UA Negative Negative - 160(16) ++++ mg/dL [facility] Leukocytes, UA Positive Negative - 500+++ Chaparrita/mcL [facility] Comment on above: small Nitrite, UA Negative Negative - Positive [facility] pH, UA 6 5 - 9 [facility] Protein, UA Negative Negative - 1999(20) ++++ mg/dL [facility] Spec Grav, UA 1.025 1 - 1.03 [facility] Urobilinogen, UA 1.0 0.2 - 12 mg/dL [facility] Thyrotropin [Units/volume] i n Serum or PlasmaOrdered By: Brain Way on 05-24-2024 TSH Qn 2.42 m[IU]/L Normal 0.45-5.33 [facility] Comment on above: Result Comment: PERF ORMED BY: [place] [address] PATHOLOGIST HOURLY SIGN LANGUAGE INTERPRETER JORDI SMITH M.D. Performed By: #### T SH3 #### [address] TSH Qn Thyrotropin [Units/v olume] in Serum or Plasma 0.45-5.33 [facility] Urinalysis macro (dipstick) panel (U)on 05-10-2024 Bilirubin, UA Negative Negative - 4(70) +++ mg/dL [facility] Blood, UA Negative Negative - 50 Dain/mcL [facility] Clarity, UA Clear [facility] Color, UA Yellow [facility] Glucose, UA Negative Negative - 1999(110) ++++ mg/dL [facility] Interpretation and review of laboratory results Normal [facility] Ketones, UA Negative Negative - 160(16) ++++ mg/dL [facility] Leukocytes, UA Negative Negative - 500+++ Chaparrita/mcL [facility] Nitrite, UA Negative Negative - Positive [facility] pH, UA 6.5 5 - 9 [facility] Protein, UA Negative Negative - 2000(20) ++++ mg/dL [facility] Spec Grav, UA 1.020 1 - 1.03 [facility] Urobilinogen, UA 1.0 0.2 - 12 mg/dL [facility] IGP,APTIMA HPV,AGE GDLNon AGE GDLN ACOG TESTING Note . [facility] Comment on above: TESTS RESULT FLAG UN [facility] REF RANGE LAB Clinician Provided Cytology Information Source.............Cervix No. of containers..01 ThinPrep Vial Age Algo ACOG Mariel... FLAG LEGEND: L-Low Normal,H-High Normal,LL-Alert Low,HH-Alert High <-Panic Low,>-Panic High,A-Abnormal,AA-Critical Abnormal Performed at: 01 =[facility] [place] [address] Christelle Galan MD, IGP, RFX APTIMA HPV ASCU Note . [facility] Comment on above: TESTS RESULT FLAG UN ITS REF RANGE LAB DIAGNOSIS: 02 NEGATIVE FOR INTRAEPITHELIAL LESION OR MALIGNANCY. Specimen adequacy: 02 Satisfactory for evaluation. Endocervical and/or squamous metaplastic cells (endocervical component) are present. Performed by: 02 Vanessa Ornelas, [employer] Teacher . 02 Note: Note 02 The Pap [...] <-Panic Low,>-Panic High,A-Abnormal,AA-Critical Abnormal Performed at: [address] [place] [address] Christelle Galan MD, Performed at: = - [facility] [id number] Ladle Car Operator: Christelle Galan MD, Phone: [phone] Performed at: [address] [id number] Ladle Car Operator: Christelle Galan MD, Phone: [phone] [facility] URETHRITIS/DISCHARGE PLUS VA GINITIS (HTRX)on 04-22-2024 ATOPOBIUM VAGINAE 0.000 [facility] ATOPOBIUM VAGINAE Not detected [facility] BVAB 2,3 (BACTERIAL VAGINOSIS ASSOCIATED BACTERIA 2, 3); MOBILUNCUS SPP 24.821 Abnormal [facility] BVAB 2,3 (BACTERIAL VAGINOSIS ASSOCIATED BACTERIA 2, 3); MOBILUNCUS SPP Detected Abnormal [facility] JANET ALBICANS, PARAPSILOSIS, TROPICALIS 0.000 [facility] JANET ALBICANS, PARAPSILOSIS, TROPICALIS Not detected [facility] JANET GLABRATA 0.000 [facility] JANET GLABRATA Not detected [facility] JANET KRUSEI 0.000 [facility] JANET KRUSEI Not detected [facility] CHLAMYDIA TRACHOMATIS 0.000 [facility] CHLAMYDIA TRACHOMATIS Not detected N [facility] GARDNERELLA VAGINALIS 0.000 [facility] GARDNERELLA VAGINALIS Not detected N [facility] Interpretation and review of laboratory results Abnormal [facility] MEGASPHAERA (TYPES 1, 2) 0.000 [facility] MEGASPHAERA (TYPES 1, 2) Not detected [facility] MYCOPLASMA GENITALIUM 0.000 [facility] MYCOPLASMA GENITALIUM Not detected N [facility] NEISSERIA GONORRHOEAE 0.000 [facility] NEISSERIA GONORRHOEAE Not detected N [facility] TRICHOMONAS VAGINALIS 0.000 [facility] TRICHOMONAS VAGINALIS Not detected N [facility] Urinalysis macro (dipstick) panel (U)on 04-20-2024 Bilirubin, UA Negative Negative - 4(70) +++ mg/dL [facility] Blood, UA Positive Negative - 50 Dain/mcL [facility] Comment on above: trace-intact Clarity, UA Clear [facility] Color, UA Yellow [facility] Glucose, UA Negative Negative - 1999(110) ++++ mg/dL [facility] Interpretation and review of laboratory results Abnormal [facility] Ketones, UA Negative Negative - 160(16) ++++ mg/dL [facility] Leukocytes, UA Trace Negative - 500+++ Chaparrita/mcL [facility] Nitrite, UA Negative Negative - Positive [facility] pH, UA 6.0 5 - 9 [facility] Protein, UA Negative Negative - 1999(20) ++++ mg/dL [facility] Spec Grav, UA 1.030 1 - 1.03 [facility] Urobilinogen, UA 0.2 0.2 - 12 mg/dL [facility] CBC without diffon Hematocrit (Bld) [Volume fraction] 37.3 % [facility] Hemoglobin (Bld) [Mass/Vol] 13.3 g/dL [facility] Rbc Mcv (Fl) By Automated Count 92.1 [facility] No Panel Informationon 04-13 [facility] Rubella IGG immune statuson 04-13-2024 Rubella immune IgG 1.33 [facility] Syphilis Total(Unknown Syphi lis Status)on 04-13-2024 Syphilis Non-Reactive [facility] TBH BOX TEST SENT OUTon 03-17 BOX TEST SENT OUT 04/13/24 [facility] Drug Screen, Urineon 024 Amphetamine/Methamphe tamine Negative [facility] Barbiturate Screen Urine Negative [facility] Benzodiazepine Screen, Urine Negative [facility] Cocaine Metabolite Negative [facility] Methadone,Meconium Negative [facility] Opiate Quantitative Urine Negative [facility] Oxycodone Negative [facility] Phencyclidine Negative [facility] Thc Marijuana, Urine Negative [facility] HCG ( test) Ql (U)o n 04-07-2024 Interpretation and review of laboratory results Abnormal [facility] Preg Test, Ur Positive [facility] Urinalysis macro (dipstick) panel (U)on 04-07-2024 Bilirubin, UA Negative Negative - 4(70) +++ mg/dL [facility] Blood, UA Negative Negative - 50 Dain/mcL [facility] Clarity, UA Clear [facility] Color, UA Yellow [facility] Glucose, UA Negative Negative - 1999(110) ++++ mg/dL [facility] Interpretation and review of laboratory results Abnormal [facility] Ketones, UA Negative Negative - 160(16) ++++ mg/dL [facility] Leukocytes, UA Positive Negative - 500+++ Chaparrita/mcL [facility] Comment on above: small Nitrite, UA Negative Negative - Positive [facility] pH, UA 7.0 5 - 9 [facility] Protein, UA Negative Negative - 1999(20) ++++ mg/dL [facility] Spec Grav, UA 1.025 1 - 1.03 [facility] Urobilinogen, UA 0.2 0.2 - 12 mg/dL [facility] Automated basophil %Ordered By: Addi Ortega on 04-06-2024 Basophils/100 WBC (Bld) 0.2 % Normal . [facility] Comment on above: Performed By: #### P ILLAR TSH, PILLAR LIPID, PILLAR CBC, PILLAR BMP #### [facility] [address] [place] [address] Automated basophil countOrde red By: Addi Ortega on 04-06-2024 Basophils (Bld) [#/Vol] 0.0 10*3/uL Normal 0.0-0.2 [facility] Comment on above: Result Comment: PERF ORMED BY: [place] [address] PATHOLOGIST HOURLY SIGN LANGUAGE INTERPRETER JORDI SMITH M.D. Performed By: #### P ILLAR TSH, PILLAR LIPID, PILLAR CBC, PILLAR BMP #### [address] Automated blood monocyte cou ntOrdered By: Addi Ortega on 04-06-2024 Monocytes (Bld) [#/Vol] 0.5 10*3/uL Normal 0.0-0.8 [facility] Comment on above: Performed By: #### P ILLAR TSH, PILLAR LIPID, PILLAR CBC, PILLAR BMP #### [facility] [address] [place] [address] Automated eosinophil %Ordere d By: Addi Ortega on 04-06-2024 Eosinophils/100 WBC (Bld) 0.5 % Normal . [facility] Comment on above: Performed By: #### P ILLAR TSH, PILLAR LIPID, PILLAR CBC, PILLAR BMP #### [facility] [address] [place] [address] Automated eosinophil countOr dered By: Addi Ortega on 04-06-2024 Eosinophils (Bld) [#/Vol] 0.0 10*3/uL Normal 0.0-0.45 [facility] Comment on above: Performed By: #### P ILLAR TSH, PILLAR LIPID, PILLAR CBC, PILLAR BMP #### [facility] [address] Automated monocyte %Ordered By: Addi Ortega on 04-06-2024 Monocytes/100 WBC (Bld) 5.6 % Normal . [facility] Comment on above: Performed By: #### P ILLAR TSH, PILLAR LIPID, PILLAR CBC, PILLAR BMP #### [facility] [address] Automated neutrophil %Ordere d By: Addi Ortega on 04-06-2024 Neutrophils/100 WBC (Bld) 64.9 % Normal . [facility] Comment on above: Performed By: #### P ILLAR TSH, PILLAR LIPID, PILLAR CBC, PILLAR BMP #### [facility] [address] Basophils Auto (Bld) [#/Vol] Ordered By: Addi Ortega on 04-06-2024 Basophils (Bld) [#/Vol] Automated basophil count 0.0-0.2 [facility] Basophils/100 WBC Auto (Bld) Ordered By: Addi Ortega on 04-06-2024 Basophils/100 WBC (Bld) Automated basophil % . [facility] Calcium [Mass/volume] in Ser um or PlasmaOrdered By: Addi Ortega on 04-06-2024 Calcium [Mass/Vol] 8.9 mg/dL Normal 8.6-10.3 [facility] Comment on above: Performed By: #### P ILLAR TSH, PILLAR LIPID, PILLAR CBC, PILLAR BMP #### [facility] [address] Calcium [Mass/Vol] Calcium [Mass/volume ] in Serum or Plasma 8.6-10.3 [facility] Carbon dioxide, total [Moles /volume] in Serum or PlasmaOrdered By: Addi Ortega on 04-06-2024 CO2 [Moles/Vol] 22.0 mmol/L Normal 21.0-31.0 [facility] Comment on above: Performed By: #### P ILLAR TSH, PILLAR LIPID, PILLAR CBC, PILLAR BMP #### [facility] [address] [place] [address] [place] CO2 [Moles/Vol] Carbon dioxide, tota l [Moles/volume] in Serum or Plasma 21.0-31.0 [facility] Chloride [Moles/volume] in S ghada or PlasmaOrdered By: Addi Ortega on 04-06-2024 Chloride [Moles/Vol] 106 mmol/L Normal 98-107 [facility] Comment on above: Performed By: #### P ILLAR TSH, PILLAR LIPID, PILLAR CBC, PILLAR BMP #### [facility] [address] [place] [address] [place] Chloride [Moles/Vol] Chloride [Moles/vol ume] in Serum or Plasma 98-107 [facility] Cholesterol [Mass/volume] in Serum or PlasmaOrdered By: Addi Ortega on 04-06-2024 Cholesterol [Mass/Vol] 159 mg/dL Normal 140-200 [facility] Comment on above: Chol less than 200 m g/dl low riskChol 201-239 mg/dl borderline riskChol 240 mg/dl and greater high risk Result Comment: Chol less than 200 mg/dl low risk Chol 201-239 mg/dl borderline risk Chol 240 mg/dl and greater high risk Performed By: #### P ILLAR TSH, PILLAR LIPID, PILLAR CBC, PILLAR BMP #### [facility] [address] [place] [address] [place] Cholesterol [Mass/Vol] Cholesterol [Mass/volume] in Serum or Plasma 140-200 [facility] Comment on above: Chol less than 200 m g/dl low riskChol 201-239 mg/dl borderline riskChol 240 mg/dl and greater high risk Cholesterol in HDL [Mass/vol ume] in Serum or PlasmaOrdered By: Addi Ortega on 04-06-2024 Cholesterol in HDL [Mass/Vol] Serum or plasma high density lipoprotein (HDL) cholesterol measurement [facility] Comment on above: HDL CHOL ATP-III CLA SSIFICATION Cardiovascular RiskHDL > or equal to 60 mg/dL LOWHDL < 40 mg/dL HIGH Cholesterol in LDL Calc [Mas s/Vol]Ordered By: Addi Ortega on 04-06-2024 Cholesterol in LDL [Mass/Vol] 95 mg/dL 0-100 [facility] Comment on above: LDL ATP III CLASSIFI CATIONLDL less than 100 mg/dL OptimalLDL 100-129 mg/dL Near or above optimalLDL 130-159 mg/dL Borderline highLDL 160-189 mg/dL HighLDL greater than 189 mg/dL Very high Cholesterol in LDL [Mass/Vol] Cholesterol in LDL [Mass/volume] in Serum or Plasma by calculation 0-100 [facility] Comment on above: LDL ATP III CLASSIFI CATIONLDL less than 100 mg/dL OptimalLDL 100-129 mg/dL Near or above optimalLDL 130-159 mg/dL Borderline highLDL 160-189 mg/dL HighLDL greater than 189 mg/dL Very high Cholesterol in VLDL Calc [Ma ss/Vol]Ordered By: Addi Ortega on 04-06-2024 Cholesterol in VLDL [Mass/Vol] 15 mg/dL [facility] Cholesterol in VLDL [Mass/Vol] Cholesterol in VLDL [Mass/volume] in Serum or Plasma by calculation [facility] Creatinine [Mass/volume] in Serum or PlasmaOrdered By: Addi Ortega on 04-06-2024 Creatinine [Mass/Vol] 0.44 mg/dL Low 0.60-1.20 [facility] Comment on above: Performed By: #### P ILLAR TSH, PILLAR LIPID, PILLAR CBC, PILLAR BMP #### [facility] [address] Creatinine [Mass/Vol] Creatinine [Mass/v olume] in Serum or Plasma Low 0.60-1.20 [facility] Employee Basic Metabolic Suero nargis 04-06-2024 GFR/1.73 sq M.predicted MDRD (S/P/Bld) [Vol rate/Area] mL/min/{1.73_m2} Normal [facility] Comment on above: Performed By: #### P ILLAR TSH, PILLAR LIPID, PILLAR CBC, PILLAR BMP #### [facility] [address] Employee Complete Blood Coun ton 04-06-2024 Mean Corpuscular HGB Conc 35.4 g/dL High 32.0-35.0 [facility] Comment on above: Performed By: #### P ILLAR TSH, PILLAR LIPID, PILLAR CBC, PILLAR BMP #### [address] NRBC% 0.0 /100{WBC} Normal 0-0.5 [facility] Comment on above: Performed By: #### P ILLAR TSH, PILLAR LIPID, PILLAR CBC, PILLAR BMP #### [address] Employee Lipid Profileon LDL Cholesterol,Calculate d 95 mg/dL Normal 0-100 [facility] Comment on above: Result Comment: LDL ATP III CLASSIFICATION LDL less than 100 mg/dL Optimal LDL 100-129 mg/dL Near or above optimal LDL 130-159 mg/dL Borderline high LDL 160-189 mg/dL High LDL greater than 189 mg/dL Very high Performed By: #### P ILLAR TSH, PILLAR LIPID, PILLAR CBC, PILLAR BMP #### [address] Triglyceride w/Reflex 79 mg/dL Normal 0-149 [facility] Comment on above: Result Comment: TRIG ATP III CLASSIFICATION TRIG less than 150 mg/dL Normal TRIG 150-199 mg/dL Borderline high TRIG 200-500 mg/dL High TRIG greater than 500 mg/dL Very high Standard traceable to the Center for Disease Conrtrol and Prevention (CDC) test method. Performed By: #### P ILLAR TSH, PILLAR LIPID, PILLAR CBC, PILLAR BMP #### [address] VLDL CHOLESTEROL 15 mg/dL Normal [facility] Comment on above: Performed By: #### P ILLAR TSH, PILLAR LIPID, PILLAR CBC, PILLAR BMP #### [address] Employee Thyroid Stim Hormon gokul 04-06-2024 Employee Thyroid Stim Hormone 2.72 u[iU]/mL Normal 0.45-5.33 [facility] Comment on above: Result Comment: PERF ORMED BY: [place] [address] PATHOLOGIST HOURLY SIGN LANGUAGE INTERPRETER JORDI SMITH M.D. Performed By: #### P ILLAR TSH, PILLAR LIPID, PILLAR CBC, PILLAR BMP #### [facility] [address] [place] [address] [place] Eosinophils Auto (Bld) [#/Vo l]Ordered By: Addi Ortega on 04-06-2024 Eosinophils (Bld) [#/Vol] Automated eosinophil count 0.0-0.45 [facility] Eosinophils/100 WBC Auto (Bl d)Ordered By: Addi Ortega on 04-06-2024 Eosinophils/100 WBC (Bld) Automated eosinophil % . [facility] Erythrocyte distribution wid th Auto (RBC) [Ratio]Ordered By: Addi Ortega on 04-06-2024 Erythrocyte distribution width (RBC) [Ratio] Erythrocyte distribution width [Ratio] by Automated count 11.9-15.3 [facility] Erythrocyte distribution wid th [Ratio] by Automated countOrdered By: Addi Ortega on 04-06-2024 Erythrocyte distribution width (RBC) [Ratio] 12.7 % Normal 11.9-15.3 [facility] Comment on above: Performed By: #### P ILLAR TSH, PILLAR LIPID, PILLAR CBC, PILLAR BMP #### [facility] [address] [place] [address] [place] Erythrocytes [#/volume] in B lood by Automated countOrdered By: Addi Ortega on 04-06-2024 RBC (Bld) [#/Vol] 4.04 10*6/uL Normal 3.60-5.00 [facility] Comment on above: Performed By: #### P ILLAR TSH, PILLAR LIPID, PILLAR CBC, PILLAR BMP #### [facility] [address] [place] [address] [place] Glucose [Mass/volume] in Ser um or PlasmaOrdered By: Addi Ortega on 04-06-2024 Glucose [Mass/Vol] 82 mg/dL Normal 70-100 [facility] Comment on above: Performed By: #### P ILLAR TSH, PILLAR LIPID, PILLAR CBC, PILLAR BMP #### [facility] [address] Glucose [Mass/Vol] Glucose [Mass/volume ] in Serum or Plasma 70-100 [facility] Hematocrit Auto (Bld) [Volum e fraction]Ordered By: Addi Ortega on 04-06-2024 Hematocrit (Bld) [Volume fraction] Hematocrit [Volume Fraction] of Blood by Automated count 34.0-46.4 [facility] Hematocrit [Volume Fraction] of Blood by Automated countOrdered By: Addi Ortega on 04-06-2024 Hematocrit (Bld) [Volume fraction] 37.6 % Normal 34.0-46.4 [facility] Comment on above: Performed By: #### P ILLAR TSH, PILLAR LIPID, PILLAR CBC, PILLAR BMP #### [facility] [address] [place] [address] [place] Hemoglobin [Mass/volume] in BloodOrdered By: Addi Ortega on 04-06-2024 Hemoglobin (Bld) [Mass/Vol] 13.3 g/dL Normal 11.8-15.4 [facility] Comment on above: Performed By: #### P ILLAR TSH, PILLAR LIPID, PILLAR CBC, PILLAR BMP #### [facility] [address] [place] [address] Hemoglobin (Bld) [Mass/Vol] Hemoglobin [Mass/volume] in Blood 11.8-15.4 [facility] Leukocytes [#/volume] correc hamilton for nucleated erythrocytes in Blood by Automated counOrdered By: Addi Ortega on 04-06-2024 WBC corrected for nucl RBC Auto (Bld) [#/Vol] 8.9 10*3/uL 3.8-11.6 [facility] WBC corrected for nucl RBC Auto (Bld) [#/Vol] Leukocytes [#/volume] corrected for nucleated erythrocytes in Blood by Automated coun 3.8-11.6 [facility] Leukocytes [#/volume] in Blo od by Automated countOrdered By: Addi Ortega on 04-06-2024 WBC (Bld) [#/Vol] 8.9 10*3/uL Normal 3.8-11.6 [facility] Comment on above: Performed By: #### P ILLAR TSH, PILLAR LIPID, PILLAR CBC, PILLAR BMP #### [address] Lymphocytes Auto (Bld) [#/Vo l]Ordered By: Addi Ortega on 04-06-2024 Lymphocytes (Bld) [#/Vol] Lymphocytes [#/volume] in Blood by Automated count 1.00-4.8 [facility] Lymphocytes [#/volume] in Bl ood by Automated countOrdered By: Addi Ortega on 04-06-2024 Lymphocytes (Bld) [#/Vol] 2.5 10*3/uL Normal 1.00-4.8 [facility] Comment on above: Performed By: #### P ILLAR TSH, PILLAR LIPID, PILLAR CBC, PILLAR BMP #### [address] Lymphocytes/100 WBC Auto (Bl d)Ordered By: Addi Ortega on 04-06-2024 Lymphocytes/100 WBC (Bld) Lymphocytes/100 leukocytes in Blood by Automated count . [facility] Lymphocytes/100 leukocytes i n Blood by Automated countOrdered By: Addi Ortega on 04-06-2024 Lymphocytes/100 WBC (Bld) 28.8 % Normal . [facility] Comment on above: Performed By: #### P ILLAR TSH, PILLAR LIPID, PILLAR CBC, PILLAR BMP #### [address] MCH Auto (RBC) [Entitic mass ]Ordered By: Addi Ortega on 04-06-2024 MCH (RBC) [Entitic mass] MCH [Entitic mass] by Automated count 24.7-34.3 [facility] MCH [Entitic mass] by Automa hamiltno countOrdered By: Addi Ortega on 04-06-2024 MCH (RBC) [Entitic mass] 32.9 pg Normal 24.7-34.3 [facility] Comment on above: Performed By: #### P ILLAR TSH, PILLAR LIPID, PILLAR CBC, PILLAR BMP #### [address] [place] [address] [place] MCHC Auto (RBC) [Mass/Vol]Or dered By: Addi Ortega on 04-06-2024 MCHC (RBC) [Mass/Vol] 35.4 g/dL High 32.0-35.0 [facility] MCHC (RBC) [Mass/Vol] MCHC [Mass/volume] by Automated count High 32.0-35.0 [facility] MCV Auto (RBC) [Entitic vol] Ordered By: Addi Ortega on 04-06-2024 MCV (RBC) [Entitic vol] MCV [Entitic volume] by Automated count 80-100 [facility] MCV [Entitic volume] by Auto mated countOrdered By: Addi Ortega on 04-06-2024 MCV (RBC) [Entitic vol] 93.2 fL Normal 80-100 [facility] Comment on above: Performed By: #### P ILLAR TSH, PILLAR LIPID, PILLAR CBC, PILLAR BMP #### [address] Monocytes Auto (Bld) [#/Vol] Ordered By: Addi Ortega on 04-06-2024 Monocytes (Bld) [#/Vol] Automated blood monocyte count 0.0-0.8 [facility] Monocytes/100 WBC Auto (Bld) Ordered By: Addi Ortega on 04-06-2024 Monocytes/100 WBC (Bld) Automated monocyte % . [facility] Neutrophils Auto (Bld) [#/Vo l]Ordered By: Addi Ortega on 04-06-2024 Neutrophils (Bld) [#/Vol] Neutrophils [#/volume] in Blood by Automated count 1.8-7.7 [facility] Neutrophils [#/volume] in Bl ood by Automated countOrdered By: Addi Ortega on 04-06-2024 Neutrophils (Bld) [#/Vol] 5.8 10*3/uL Normal 1.8-7.7 [facility] Comment on above: Performed By: #### P ILLAR TSH, PILLAR LIPID, PILLAR CBC, PILLAR BMP #### [facility] [address] [place] [address] [place] Neutrophils/100 WBC Auto (Bl d)Ordered By: Addi Ortega on 04-06-2024 Neutrophils/100 WBC (Bld) Automated neutrophil % . [facility] No Panel InformationOrdered By: Addi Ortega on 04-06-2024 Estimated GFR (CKD-EPI) > 60.0 mL/Min [facility] Creatinine Clearance (Chem N/A [facility] Nucleated erythrocytes [Pres ence] in Blood by Automated countOrdered By: Addi Ortega on 04-06-2024 Nucleated RBC Auto Ql (Bld) 0.0 /100{WBC} 0-0.5 [facility] Nucleated RBC Auto Ql (Bld) Nucleated erythrocytes [Presence] in Blood by Automated count 0-0.5 [facility] Platelet mean volume Auto (B ld) [Entitic vol]Ordered By: Addi Ortega on 04-06-2024 Platelet mean volume (Bld) [Entitic vol] Platelet mean volume [Entitic volume] in Blood by Automated count 6.3-10.7 [facility] Platelet mean volume [Entiti c volume] in Blood by Automated countOrdered By: Addi Ortega on 04-06-2024 Platelet mean volume (Bld) [Entitic vol] 8.8 fL Normal 6.3-10.7 [facility] Comment on above: Performed By: #### P ILLAR TSH, PILLAR LIPID, PILLAR CBC, PILLAR BMP #### [facility] [address] [place] [address] [place] Platelets Auto (Bld) [#/Vol] Ordered By: Addi Ortega on 04-06-2024 Platelets (Bld) [#/Vol] Platelets [#/volume] in Blood by Automated count 150-450 [facility] Platelets [#/volume] in Bloo d by Automated countOrdered By: Addi Ortega on 04-06-2024 Platelets (Bld) [#/Vol] 274 10*3/uL Normal 150-450 [facility] Comment on above: Performed By: #### P ILLAR TSH, PILLAR LIPID, PILLAR CBC, PILLAR BMP #### [facility] [address] [place] [address] [place] Potassium [Moles/volume] in Serum or PlasmaOrdered By: Addi Ortega on 04-06-2024 Potassium [Moles/Vol] 4.0 mmol/L Normal 3.5-5.1 [facility] Comment on above: Performed By: #### P ILLAR TSH, PILLAR LIPID, PILLAR CBC, PILLAR BMP #### [facility] [address] [place] [id number] [facility] Potassium [Moles/Vol] Potassium [Moles/v olume] in Serum or Plasma 3.5-5.1 [facility] RBC Auto (Bld) [#/Vol]Ordere d By: Addi Ortega on 04-06-2024 RBC (Bld) [#/Vol] Erythrocytes [#/volu me] in Blood by Automated count 3.60-5.00 [facility] Serum or plasma anion gap de terminationOrdered By: Addi Ortega on 04-06-2024 Anion gap [Moles/Vol] 11.0 mmol/L Normal 6.0-15.[address] [facility] Comment on above: Performed By: #### P ILLAR TSH, PILLAR LIPID, PILLAR CBC, PILLAR BMP #### [facility] [address] Anion gap [Moles/Vol] Serum or plasma an ion gap determination 6.0-15.0 [facility] Serum or plasma high density lipoprotein (HDL) cholesterol measurementOrdered By: Addi Ortega on 04-06-2024 Cholesterol in HDL [Mass/Vol] 48 mg/dL Normal 23-92 [facility] Comment on above: HDL CHOL ATP-III CLA SSIFICATION Cardiovascular RiskHDL > or equal to 60 mg/dL LOWHDL < 40 mg/dL HIGH Result Comment: HDL CHOL ATP-III CLASSIFICATION Cardiovascular Risk HDL > or equal to 60 mg/dL LOW HDL < 40 mg/dL HIGH Performed By: #### P ILLAR TSH, PILLAR LIPID, PILLAR CBC, PILLAR BMP #### [facility] [address] [place] [id number] [facility] Serum or plasma total choles terol/high density lipoprotein (HDL) cholesterol mass ratOrdered By: Addi Ortega on 04-06-2024 Cholesterol.total/Cho lesterol in HDL [Mass ratio] 3.3 {ratio} Normal <5.0 [facility] Comment on above: Performed By: #### P ILLAR TSH, PILLAR LIPID, PILLAR CBC, PILLAR BMP #### [facility] [address] Cholesterol.total/Cho lesterol in HDL [Mass ratio] Serum or plasma total cholesterol/high density lipoprotein (HDL) cholesterol mass rat <5.0 [facility] Sodium [Moles/volume] in Ser um or PlasmaOrdered By: Addi Ortega on 04-06-2024 Sodium [Moles/Vol] 135 mmol/L Low 136-145 [facility] Comment on above: Performed By: #### P ILLAR TSH, PILLAR LIPID, PILLAR CBC, PILLAR BMP #### [facility] [address] [place] [id number] [facility] Sodium [Moles/Vol] Sodium [Moles/volume ] in Serum or Plasma Low 136-145 [facility] Thyrotropin [Units/volume] i n Serum or PlasmaOrdered By: Addi Ortega on 04-06-2024 TSH Qn 2.72 m[IU]/L 0.45-5.33 [facility] TSH Qn Thyrotropin [Units/v olume] in Serum or Plasma 0.45-5.33 [facility] Triglyceride [Mass/volume] i n Serum or PlasmaOrdered By: Addi Ortega on 04-06-2024 Triglyceride [Mass/Vol] 79 mg/dL 0-149 [facility] Comment on above: TRIG ATP III CLASSIF ICATIONTRIG less than 150 mg/dL NormalTRIG 150-199 mg/dL Borderline highTRIG 200-500 mg/dL High TRIG greater than 500 mg/dL Very highStandard traceable to the Center for Disease Conrtrol and Prevention (CDC) test method. Triglyceride [Mass/Vol] Triglyceride [Mass/volume] in Serum or Plasma 0-149 [facility] Comment on above: TRIG ATP III CLASSIF ICATIONTRIG less than 150 mg/dL NormalTRIG 150-199 mg/dL Borderline highTRIG 200-500 mg/dL High TRIG greater than 500 mg/dL Very highStandard traceable to the Center for Disease Conrtrol and Prevention (CDC) test method. Urea nitrogen [Mass/volume] in Serum or PlasmaOrdered By: Addi Ortega on 04-06-2024 Urea nitrogen [Mass/Vol] 7 mg/dL Normal 03-09 [facility] Comment on above: Performed By: #### P ILLAR TSH, PILLAR LIPID, PILLAR CBC, PILLAR BMP #### [facility] [address] Urea nitrogen [Mass/Vol] Urea nitrogen [Mass/volume] in Serum or Plasma 03-09 [facility] WBC Auto (Bld) [#/Vol]Ordere d By: Addi Ortega on 04-06-2024 WBC (Bld) [#/Vol] Leukocytes [#/volume ] in Blood by Automated count 3.8-11.6 [facility] ED Note-Physicianon 03-20-20 ED Note-Physician ED [...] and Complexity of Problems Differential Diagnosis: [] [facility] Data External documents reviewed: [] [...] with the patient. 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 Discussed return precautions. [...] In 3 days 03/21/2024 EDT [address], [address] [place] [address]- Business (1) Additional Instructions: DARWIN JONES In [address] [place] [address] [place] [address]- [phone] Business (1) Additional Instructions: Patient Education Threatened Miscarriage Subchorionic Hematoma Attestation Patient seen and evaluated by the physician geriatric nurse assistant. Attending physician was present in the emergency department and supervised care. This visit was performed by both the physician and an APC. I performed all aspects of the MDM as documented. This report was transcribed using voice recognition software. Every effort was made to ensure accuracy, however, inadvertently computerized air and hydronic balancing technician mistakes may be present. Appropriate [facility] (more content not included)... Normal [facility] Comment on above: Result Comment: Elec tronically Signed By: Hector Correa PA-C\.br\Date and Time Signed: 03/18/24 12:11 EDT\.br\Electronically Co-Signed By: Toan Lake DO\.br\Date and Time Co-Signed: 03/20/24 07:17 EDT ABO/Rhon 03-18-2024 ABO/Rh Negative Invalid Interpretation Code [facility] Comment on above: Performed By: #### 2 [id number] #### [facility] [address] [place] [address] BLOOD BANKOrdered By: Nikky Brennan on 03-18-2024 ABO/Rh Interp Negative Invalid Interpretation Code [facility] Subsection BMPon 03-18-2024 Anion gap [Moles/Vol] 12 mmol/L Normal 6-16 [facility] Comment on above: Performed By: #### 2 [id number] #### [facility] [address] [place] [address] Calcium [Mass/Vol] 9.2 mg/dL Normal 8.9-11.1 [facility] Comment on above: Performed By: #### 2 [id number] #### [facility] [address] [place] [address] Chloride [Moles/Vol] 105 mmol/L Normal 101-111 [facility] Comment on above: Performed By: #### 2 [id number] #### [facility] [address] [place] [address] CO2 [Moles/Vol] 23 mmol/L Normal 21-31 [facility] Comment on above: Performed By: #### 2 [id number] #### [facility] [address] [place] [address] Creatinine [Mass/Vol] 0.5 mg/dL Normal 0.5-1.3 [facility] Comment on above: Performed By: #### 2 606009 #### [facility] [address] [place] [address] Glucose [Mass/Vol] 92 mg/dL Normal 55-199 [facility] Comment on above: Performed By: #### 2 154154 #### [facility] [address] [place] [address] Potassium [Moles/Vol] 3.8 mmol/L Normal 3.5-5.3 [facility] Comment on above: Performed By: #### 2 [id number] #### [facility] [address] [place] [address] Sodium [Moles/Vol] 136 mmol/L Normal 135-145 [facility] Comment on above: Performed By: #### 2 [id number] #### [facility] [address] [place] [address] Urea nitrogen [Mass/Vol] 9 mg/dL Normal 5-21 [facility] Comment on above: Performed By: #### 2 [id number] #### [facility] [address] [place] [address] Urea nitrogen/Creatinine [Mass ratio] 18 No Units Normal 10-20 [facility] Comment on above: Performed By: #### 2 [id number] #### [facility] [address] [place] [address] BhCG Quanton 03-18-2024 [place] [address]6 m[IU]/mL High 1-3 [facility] Comment on above: Result Comment: 'F N ON < 1 - 3' ' 0.2 - 1 WEEK = 5 TO 50' ' 1 - 2 WEEKS = 50 - 500' ' 2 - 3 WEEKS = 100 - 5000' ' 3 - 4 WEEKS = 500 - 15778' ' 4 - 5 WEEKS = 1000 - 51772' ' 5 - 6 WEEKS = 68511 - 638711' ' 6 - 8 WEEKS = 41516 - 881840' ' 8 - 12 WEEKS = 10722 - 716611' Performed By: #### 2 [id number] #### [facility] [address] [place] [address] CBC w/ Auto Diffon Basophils/100 WBC (Bld) 0.6 % Normal 0.0-2.0 [facility] Comment on above: Performed By: #### 2 279135 #### [facility] [address] [place] [address] Basophils/Leukocytes Auto (Bld) [Pure # fraction] 0.0 E9/L Normal 0.0-0.2 [facility] Comment on above: Performed By: #### 2 [id number] #### [facility] [address] [place] [address] Eosinophils (Bld) [#/Vol] 0.0 E9/L Normal 0.0-0.5 [facility] Comment on above: Performed By: #### 2 [id number] #### [facility] [address] [place] [address] Eosinophils/100 WBC (Bld) 0.5 % Normal 0.0-8.0 [facility] Comment on above: Performed By: #### 2 [id number] #### [facility] [address] [place] [address] Erythrocyte distribution width (RBC) [Ratio] 12.5 % Normal 10.9-14.2 [facility] Comment on above: Performed By: #### 2 [id number] #### [facility] [address] [place] [address] Hematocrit (Bld) [Volume fraction] 40.2 % Normal 34.0-46.0 [facility] Comment on above: Performed By: #### 2 614102 #### [facility] [address] [place] [address] Hemoglobin (Bld) [Mass/Vol] 13.8 g/dL Normal 12.0-16.0 [facility] Comment on above: Performed By: #### 2 532454 #### [facility] [address] [place] [address] Lymphocytes (Bld) [#/Vol] 2.4 E9/L Normal 1.0-4.0 [facility] Comment on above: Performed By: #### 2 [id number] #### [facility] [address] [place] [address] Lymphocytes/100 WBC (Bld) 28.4 % Normal 14.0-50.0 [facility] Comment on above: Performed By: #### 2 981612 #### [facility] [address] [place] [address] MCH (RBC) [Entitic mass] 32.3 pg Normal 27.0-34.0 [facility] Comment on above: Performed By: #### 2 434120 #### [facility] [address] [place] [address] MCHC (RBC) [Mass/Vol] 34.3 g/dL Normal 31.4-36.0 [facility] Comment on above: Performed By: #### 2 934336 #### [facility] [address] [place] [address] MCV (RBC) [Entitic vol] 94.2 fL Normal 80.0-100.0 [facility] Comment on above: Performed By: #### 2 [id number] #### [facility] [address] [place] [address] Monocytes (Bld) [#/Vol] 0.4 E9/L Normal 0.2-1.0 [facility] Comment on above: Performed By: #### 2 267260 #### [facility] [address] [place] [address] Neutrophils (Bld) [#/Vol] 5.4 E9/L Normal 2.0-7.5 [facility] Comment on above: Performed By: #### 2 360327 #### [facility] [address] [place] [address] Neutrophils/100 WBC (Bld) 65.4 % Normal 36.0-75.0 [facility] Comment on above: Performed By: #### 2 [id number] #### [facility] [address] [place] [address] Platelet mean volume (Bld) [Entitic vol] 8.5 fL Normal 6.4-10.8 [facility] Comment on above: Performed By: #### 2 648526 #### [facility] [address] [place] [address] Platelets (Bld) [#/Vol] 249.0 E9/L Normal 150.0-500. 0 [facility] Comment on above: Performed By: #### 2 [id number] #### [facility] [address] [place] [address] RBC (Bld) [#/Vol] 4.3 E12/L Normal 4.3-5.9 [facility] Comment on above: Performed By: #### 2 [id number] #### [facility] [address] [place] [address] WBC corrected for nucl RBC Auto (Bld) [#/Vol] 8.3 E9/L Normal 4.0-11.0 [facility] Comment on above: Performed By: #### 2 087005 #### [facility] [address] [place] [address] CHEMISTRYOrdered By: SYSTEM SYSTEM on 03-18-2024 Anion [...] 199 mg/[place] [address] m[IU]/mL High 1 - 3 mIU/mL [facility] Comment on above: Result Comment: 'F N ON < 1 - 3' ' 0.2 - 1 WEEK = 5 TO 50' ' 1 - 2 WEEKS = 50 - 500' ' 2 - 3 WEEKS = 100 - 5000' ' 3 - 4 WEEKS = 500 - 82865' ' 4 - 5 WEEKS = 1000 - 93194' ' 5 - 6 WEEKS = 47557 - 973356' ' 6 - 8 WEEKS = 08025 - 277133' ' 8 - 12 WEEKS = 94685 - 882410' Potassium [Moles/Vol] 3.8 mmol/L Normal 3.5 - 5.3 mmol/L [facility] Sodium [Moles/Vol] 136 mmol/L Normal 135 - 145 mmol/L [facility] Urea nitrogen [Mass/Vol] 9 mg/dL Normal 5 - 21 mg/dL [facility] Urea nitrogen/Creatinine [Mass ratio] 18 mg/mg Normal 10 - 20 [facility] ED Clinical Summaryon 2023 ED Clinical Summary ED Clinical Summary [address] [address] ED Clinical Summary Person Information Name: TAWNYA HERRING [facility] Age: 28 Years : 1995 Sex: Female Language: Mozambican PCP: DARWIN JONES CNP Marital Status: Single Phone: [phone] Visit Id: Visit Reason: Vaginal bleeding - [...] 03/18/2024 12:15:02 03/18/2024 12:15:02 03/18/2024 12:15:02 ADDRESS: [address] [place] [address] [id number] [facility] DOC NOTES: MEDICAL INFORMATION: Prescriptions Given: Medications to Continue with No Changes Other Medications citalopram (CeleXA 20 mg Tab) 1 Tablets By Mouth every day. PATIENT EDUCATION INFORMATION: Instructions: Threatened Miscarriage; Subchorionic Hematoma Follow up: With: Address: When: [address] [facility] [place] [address] Business (1) In 3 days 03/21/2024 With: Address: When: DARWIN JONES[address] [place] [address] [phone] Business (1) In 3 days DIAGNOSIS: Subchorionic bleed; Threatened Normal [facility] ED Patient Summaryon 024 ED Patient Summary ED Patient Summary [address] [id number] Patient Discharge Instructions Person Information Name: TAWNYA HERRING Age: 28 Years Arrival Date: 03/18/2024 08:06:19 Discharge Diagnosis: Subchorionic bleed; Threatened Primary Care Physician: DARWIN JONES CNP Provider Information Primary Provider: Toan Lake DO Advanced Java Developer Analyst:None The exam and treatment you received in the Emergency Department were for an urgent problem and are not intended as complete care. It is important that you follow up with a doctor, nurse practitioner, or physician?s geriatric nurse assistant for ongoing care. If your symptoms [...] Follow-up Instructions: With: Address: When: Rogelio Nath [address] [place] [phone] Business (1) In 3 days 03/21/2024 With: Address: When: DARWIN LARA[address] [place] [phone] Business (1) In 3 days In the event that this physician does not participate in your insurance network, please consult with your insurance company to find a nearby participating provider. Patient Education Materials: Threatened Miscarriage; Subchorionic Hematoma A MESSAGE TO ALL PATIENTS REGARDING OPIOIDS PRESCRIPTION OPIOIDS: WHAT YOU NEED TO KNOW Prescription opioids can be used to help relieve jkfebyxz-wa-snzsdc pain and are often prescribed following a [...] you be (more content not included)... Normal [facility] HEMATOLOGYOrdered By: SYSTEM SYSTEM on 03-18-2024 [...] 24 Bilirubin Ql (U) Negative Normal Negative [facility] Comment on above: Performed By: #### 4 [id number] #### [facility] [address] [place] [address] Clarity (U) Clear Normal Clear [facility] Comment on above: Performed By: #### 4 [id number] #### [facility] [address] [place] [address] Color (U) Yellow Normal Yellow [facility] Comment on above: Result Comment: Micr oscopic readings are only performed on those samples that meet specific criteria set forth by [facility]. Performed By: #### 4 [id number] #### [facility] [address] [place] [address] Epithelial cells.squamous Auto (Urine sed) [#/Area] 0-2 Invalid Interpretation Code [facility] Comment on above: Performed By: #### 4 [id number] #### [facility] [address] [place] [address] Glucose Ql (U) Negative Normal Negative [facility] Comment on above: Performed By: #### 4 [id number] #### [facility] [address] [place] [address] Hemoglobin Auto test strip (U) [Mass/Vol] 3+ mg/dL Abnormal Negative [facility] Comment on above: Performed By: #### 4 [id number] #### [facility] [address] [place] [address] Ketones Auto test strip Ql (U) Negative Normal Negative [facility] Comment on above: Performed By: #### 4 [id number] #### [facility] [address] [place] [address] Leukocyte esterase Auto test strip Ql (U) 25 Chapar[place]a/uL Normal Negative [facility] Comment on above: Performed By: #### 4 [id number] #### [facility] [address] [place] [address] Mucus Auto Ql (U) Trace Normal Negative [facility] Comment on above: Performed By: #### 4 [id number] #### [facility] [address] [place] [address] Nitrite Auto test strip Ql (U) Negative Normal Negative [facility] Comment on above: Performed By: #### 4 [id number] #### [facility] [address] [place] [address] pH (U) 7.5 [pH] Invalid Interpretation Code 5.0-9.0 [facility] Comment on above: Performed By: #### 4 [id number] #### [facility] [address] [place] [address] Protein Ql (U) Trace Abnormal Negative [facility] Comment on above: Performed By: #### 4 [id number] #### [facility] [address] [place] [address] RBC Ql (U) 31-75 Abnormal 0-3 [facility] Comment on above: Performed By: #### 4 [id number] #### [facility] [address] [place] [address] Specific gravity (U) [Rel density] 1.023 Invalid Interpretation Code 1.005-1.03 0 [facility] Comment on above: Performed By: #### 4 [id number] #### [facility] [address] [place] [address] Urobilinogen (U) [Mass/Vol] Negative Normal Negative [facility] Comment on above: Performed By: #### 4 [id number] #### [facility] [address] [place] [address] WBC Auto (Urine sed) [#/Area] 0-5 Normal 0-5 [facility] Comment on above: Performed By: #### 4 [id number] #### [facility] [address] [place] [address] Type of Urine collection method Clean Catch Normal [facility] Comment on above: Performed By: #### 4 [id number] #### [facility] [address] [place] [address] URINALYSISOrdered By: SYSTEM SYSTEM on 03-18-2024 Bilirubin Ql (U) Negative Normal Negativemg /dL [facility] Auto SS Clarity (U) Clear (03/18/24 8:17 AM) Normal Clear [facility] UA Auto SS Color (U) Yellow 1 (03/18/24 8:17 AM) Normal Yellow [facility] UA Auto SS Comment on above: Interpretive Data: M icroscopic readings are only performed on those samples that meet specific criteria set forth by [facility]. Epithelial cells.squamous Auto (Urine sed) [...] UA Auto SS pH (U) 7.5 *NA* (83/24 8:17 AM) Invalid Interpretation Code 5.0 - [...] Desc Clean Catch (03/18/24 8:17 AM) Normal [facility] UA Auto SS US 1st Trimesteron 03-18-2024 [...] intrauterine , with heart rate 125 bpm. [place]-rump length 3.22 mm. Mean sac diameter 1.74 [...] Correa FINAL REPORT Dictated: 03/18/2024 12:05 pm SignLuis Alfredo lange MD Signed (Electronic Signature): 03/18/2024 12:05 pm Signed by: Luis Alfredo Bunch MD Transcribed by: EDWIN Technologist: MARCOS Technical Comments Regular Patient History Hx Transabdominal Ultrasound Performed Transvaginal Ultrasound Performed Normal [facility] US Transvaginalon 03-18-2024 US Transvaginal Exam Date/Time: 03/18/2024 11:41 EDT Reason for Exam: Vaginal bleeding Report Please review ultrasound pelvis for ultrasound transvaginal report. Ordering Provider: Hector Correa FINAL REPORT Dictated: 03/18/2024 12:06 pm Luis Alfredo Bunch MD Signed (Electronic Signature): 03/18/2024 12:06 pm Signed by: Luis Alfredo Bunch MD Transcribed by: EDWIN Technologist: MARCOS [facility] eGFRon 03-18-2024 eGFR 131 mL/min/1.73 m2 Normal >=59 [facility] Comment on above: Order Comment: Order added by Discern Expert. Performed By: #### 1 [id number] #### [facility] [address] [place] [address] Progesteroneon 02-24-2024 Progesterone 9.9 ng/mL Normal . [facility] Comment on above: Result Comment: Foll icular phase 0.1 - 0.9 Luteal phase 1.8 - 23.9 Ovulation phase 0.1 - 12.0 First trimester 11.0 - 44.3 Second trimester 25.4 - 83.3 Third trimester 58.7 - 214.0 Postmenopausal 0.0 - 0.1 Performed at: [facility] [id number] Ladle Car Operator: Alexis Ashton PhD, Phone: [phone] PERFORMED BY: [address] [id number] PATHOLOGIST HOURLY SIGN LANGUAGE INTERPRETER JORDI SMITH M.D. Performed By: #### P ANTHONY ####[facility] , Serum or plasma progesterone measurement (mass/volume)Ordered By: Brain Way on 02-24-2024 Progesterone [Mass/Vol] 9.9 ng/mL . [facility] Comment on above: Follicular phase 0.1 - 0.9 Luteal phase 1.8 - 23.9 Ovulation phase 0.1 - 12.0 First trimester 11.0 - 44.3 Second trimester 25.4 - 83.3 Third trimester 58.7 - 214.0 Postmenopausal 0.0 - 0.1Performed at: [facility] [place] [id number] Director: Alexis Ashton PhD, Phone: [phone] Progesteroneon 01-24-2024 Progesterone 8.5 ng/mL Normal . [facility] Comment on above: Result Comment: Foll icular phase 0.1 - 0.9 Luteal phase 1.8 - 23.9 Ovulation phase 0.1 - 12.0 First trimester 11.0 - 44.3 Second trimester 25.4 - 83.3 Third trimester 58.7 - 214.0 Postmenopausal 0.0 - 0.1 Performed at: [address] [id number] Ladle Car Operator: Alexis Ashton PhD, Phone: [phone] PERFORMED BY: [facility] [address] [place] [address] PATHOLOGIST HOURLY SIGN LANGUAGE INTERPRETER JORDI SMITH M.D. Performed By: #### P ANTHONY ####[facility] , Serum or plasma progesterone measurement (mass/volume)Ordered By: Brain Way on 01-24-2024 Progesterone [Mass/Vol] 8.5 ng/mL . [facility] Comment on above: Follicular phase 0.1 - 0.9 Luteal phase 1.8 - 23.9 Ovulation phase 0.1 - 12.0 First trimester 11.0 - 44.3 Second trimester 25.4 - 83.3 Third trimester 58.7 - 214.0 Postmenopausal 0.0 - 0.1Performed at: [address] [id number] Director: Alexis Ashton PhD, Phone: [phone] Progesteroneon 12-27-2023 Progesterone 13.3 ng/mL Normal . [facility] Comment on above: Result Comment: Foll icular phase 0.1 - 0.9 Luteal phase 1.8 - 23.9 Ovulation phase 0.1 - 12.0 First trimester 11.0 - 44.3 Second trimester 25.4 - 83.3 Third trimester 58.7 - 214.0 Postmenopausal 0.0 - 0.1 Performed at: [address] [id number] Ladle Car Operator: Alexis Ashton PhD, Phone: [phone] PERFORMED BY: [address] [place] [address] PATHOLOGIST HOURLY SIGN LANGUAGE INTERPRETER JORDI SMITH M.D. Performed By: #### P ANTHONY ####[facility] , Serum or plasma progesterone measurement (mass/volume)Ordered By: Brain Way on 12-27-2023 Progesterone [Mass/Vol] 13.3 ng/mL . [facility] Comment on above: Follicular phase 0.1 - 0.9 Luteal phase 1.8 - 23.9 Ovulation phase 0.1 - 12.0 First trimester 11.0 - 44.3 Second trimester 25.4 - 83.3 Third trimester 58.7 - 214.0 Postmenopausal 0.0 - 0.1Performed at: [facility] [place] [id number] Director: Alexis Ashton PhD, Phone: [phone] Progesteroneon 11-30-2023 Progesterone 16.9 ng/mL Normal . [facility] Comment on above: Result Comment: Foll icular phase 0.1 - 0.9 Luteal phase 1.8 - 23.9 Ovulation phase 0.1 - 12.0 First trimester 11.0 - 44.3 Second trimester 25.4 - 83.3 Third trimester 58.7 - 214.0 Postmenopausal 0.0 - 0.1 Performed at: [facility] [address] [place] [id number] Ladle Car Operator: Alexis Ashton PhD, Phone: [phone] PERFORMED BY: [address] [place] [address] PATHOLOGIST HOURLY SIGN LANGUAGE INTERPRETER JORDI SMITH M.D. Performed By: #### P ANTHONY ####[facility] , Serum or plasma progesterone measurement (mass/volume)Ordered By: Brain Way on 11-30-2023 Progesterone [Mass/Vol] 16.9 ng/mL . [facility] Comment on above: Follicular phase 0.1 - 0.9 Luteal phase 1.8 - 23.9 Ovulation phase 0.1 - 12.0 First trimester 11.0 - 44.3 Second trimester 25.4 - 83.3 Third trimester 58.7 - 214.0 Postmenopausal 0.0 - 0.1Performed at: CB [facility] [address] [place], [place] [id number] Director: Alexis Ashton PhD, Phone: [phone] Teresa 11-18-2023 CNOV Office Visit (ENDOMN ) -- TAWNYA HERRING ([id number]) 1995 F Date Time Provider Department 11/18/23 8:30 AM [facility] ENDOMN During your visit today, we recorded the following information about you: Pulse Blood pressure Weight Last Period 100/minute 132/92 110.7 kg 11/09/23 Odalis Greene 11/18/2023 7:58 AM Signed Thank you for choosing the [facility] Department of Endocrinology, Diabetes and Metabolism. Did you know that you need to call 48 hours in advance of your scheduled visit, if you are unable to make your appointment? The [facility]inology [facility] Metabolism [place] thanks you for your commitment, because patients not showing to their appointment results in a lost opportunity for patients to receive [facility] health care at the [facility]. To Cancel an appointment, please choose one of the following: - Call the Appointment Call Center at [phone] - From [facility], Go to Appointments - Cancel Appts If cancelling, consider your need to reschedule to prevent further delays in your care. To Schedule an appointment, please choose one of the following: - Call the Appointment Call Center at [phone] - From [facility], Go to Appointments - Request an [...] as of 11/18/2023 - cyanocobalamin/folic acid (VITAMIN K91-FXITX ACID) 1,000-400 mcg lozg Take by mouth (more content not included)... Normal [facility] Progesteroneon 11-01-2023 Progesterone 7.1 ng/mL Normal . [facility] Comment on above: Result Comment: Foll icular phase 0.1 - 0.9 Luteal phase 1.8 - 23.9 Ovulation phase 0.1 - 12.0 First trimester 11.0 - 44.3 Second trimester 25.4 - 83.3 Third trimester 58.7 - 214.0 Postmenopausal 0.0 - 0.1 Performed at: [facility] [place] [id number] Ladle Car Operator: Alexis Ashton PhD, Phone: [phone] PERFORMED BY: [facility] [address] [place] [id number] PATHOLOGIST HOURLY SIGN LANGUAGE INTERPRETER JORDI SMITH M.D. Performed By: #### P ANTHONY ####[facility] , Serum or plasma progesterone measurement (mass/volume)Ordered By: Brain Way on 11-01-2023 Progesterone [Mass/Vol] 7.1 ng/mL . [facility] Comment on above: Follicular phase 0.1 - 0.9 Luteal phase 1.8 - 23.9 Ovulation phase 0.1 - 12.0 First trimester 11.0 - 44.3 Second trimester 25.4 - 83.3 Third trimester 58.7 - 214.0 Postmenopausal 0.0 - 0.1Performed at: [facility] [place], [place] [id number] Director: Alexis Ashton PhD, Phone: [phone] Serum or plasma progesterone measurement (mass/volume)Ordered By: Brain Way on 10-01-2023 Progesterone [Mass/Vol] 0.9 ng/mL . [facility] Comment on above: Follicular phase 0.1 - 0.9 Luteal phase 1.8 - 23.9 Ovulation phase 0.1 - 12.0 First trimester 11.0 - 44.3 Second trimester 25.4 - 83.3 Third trimester 58.7 - 214.0 Postmenopausal 0.0 - 0.1Performed at: [facility] [address] [place], [place] [id number] Director: Alexis Ashton PhD, Phone: [phone] Ambulatory Visit Summaryon 0 09-29-2023 Ambulatory Visit [...] When: Where: [address] [place] [address] [place] [address]- Medications What How Much When Why Instructions New amoxicillin-clavulanate (Augmentin 875 mg oral tablet) 1 Tablets By Mouth Every 12 hours Sinusitis BMI 38.0-38.9,adult Duration: 10 Days Pickup at [facility] New methylPREDNISolone (Medrol Dosepack 4 mg Tab) 1 Packets By Mouth As Directed Sinusitis BMI 38.0-38.9,adult Duration: 6 Days as directed on package labeling Pickup at [facility] Unchanged citalopram (CeleXA 20 mg Tab) 1 Tablets By Mouth Every day Contact prescribing physician if questions or concerns Unchanged citalopram (citalopram 20 mg Tab) Contact prescribing physician if questions or concerns Unchanged pyridoxine (Vitamin B6 100 mg Tab) By Mouth Every day Contact prescribing physician if questions or concerns Pharmacy Information [facility]: [address] [place], [place] [id number] [phone] Allergies No Known Allergies No Known Medication [...] with voice recognition software. Occasional wrong-word or ?ttwbm-b-xpkl? substitutions may have occurred due to the [...] with improvement. She does not use any lssf-kzp-cckxizk Flonase and has not tried any other [...] day(s), # 20 tab(s), Refills(s) 0, Pharmacy: [facility], 170.2, cm, 09/29/23 10:44:00 EST, Height/Length Dosing, 112, kg, 09/29/23 10:44:00 EST, Weight Dosing methylPREDNISolone, = 1 packet(s), Oral, As Directed, as directed on package labeling, X 6 day(s), # 21 tab(s), Refills(s) 0, Pharmacy: [facility], 170.2, cm, 09/29/23 10:44:00 EST, Height/Length Dosing, 112, kg, 09/29/23 10:44:00 EST, Weight Dosing 2. BMI 38.0-38.9,adult (Z68.38: Body mass index [BMI] 38.0-38.9, adult) The standard range for ages 18 and olde (more content not included)... Normal [facility] Comment on above: Result Comment: Elec tronically [...] ? Medicines that treat allergies (antihistamines). ? Rnnn-enw-qazjvny pain relievers. ? If caused by bacteria, [...] home: Medicines ? Take, use, or apply wnej-bwn-tfihhbx and prescription medicines only as told by [...] and water are not available, use hand network operations specialist. ? Do not smoke. Avoid being around people who are smoking (secondhand smoke). ? Keep all follow-up visits. This is important. Contact a health care provider if: ? You have a fever. ? Your symptoms get (more content not included)... Normal [facility] 07-16-2023 [facility] TAWNYA [facility]ERR[facility] ([id number]) 1995 F Date Time Provider Department 07/16/23 [...] Encounter Status:Closed by KENAN GOMEZ on 07/16/23 [facility] CNOVon 06-08-2023 CNOV Office Visit (OTOLLN ) -- TAWNYA HERRING ([id number]) 1995 F Date Time Provider Department 06/08/23 [...] will be in touch with results via [employer] HPI: Tawnya is a 27 year old [...] (more content not included)... Normal [facility] Alanine aminotransferase [En zymatic activity/volume] in Serum or PlasmaOrdered By: Addi Ortega on 04-08-2023 ALT [Catalytic activity/Vol] 28 U/L [facility] Albumin [Mass/volume] in Ser um or Plasma by Bromocresol green (BCG) dye binding methoOrdered By: Addi Ortega on 04-08-2023 Albumin BCG dye [Mass/Vol] 4.8 g/dL 3.5-5.7 [facility] Alkaline phosphatase [Enzyma tic activity/volume] in Serum or PlasmaOrdered By: Addi Ortega on 04-08-2023 ALP [Catalytic activity/Vol] 61 U/L 34-104 [facility] Aspartate aminotransferase [ Enzymatic activity/volume] in Serum or PlasmaOrdered By: Addi Ortega on 04-08-2023 AST [Catalytic activity/Vol] 13 U/L 13-39 [facility] Basophils Auto (Bld) [#/Vol] Ordered By: Addi Ortega on 04-08-2023 Basophils (Bld) [#/Vol] 0.0 10*3/uL 0.0-0.2 [facility] Basophils/100 WBC Auto (Bld) Ordered By: Addi Ortega on 04-08-2023 Basophils/100 WBC (Bld) 0.4 % . [facility] Bilirubin.total [Mass/volume ] in Serum or PlasmaOrdered By: Addi Ortega on 04-08-2023 Bilirubin [Mass/Vol] 0.4 mg/dL 0.3-1.0 [facility] Calcium [Mass/volume] in Ser um or PlasmaOrdered By: Addi Ortega on 04-08-2023 Calcium [Mass/Vol] 9.5 mg/dL 8.6-10.3 [facility] Carbon dioxide, total [Moles /volume] in Serum or PlasmaOrdered By: Addi Ortega on 04-08-2023 CO2 [Moles/Vol] 25.4 mmol/L 21.0-31.0 [facility] Chloride [Moles/volume] in S ghada or PlasmaOrdered By: Addi Ortega on 04-08-2023 Chloride [Moles/Vol] 106 mmol/L 98-107 [facility] Cholesterol [Mass/volume] in Serum or PlasmaOrdered By: Addi Ortega on 04-08-2023 Cholesterol [Mass/Vol] 162 mg/dL 140-200 [facility] Comment on above: Chol less than 200 m g/dl low riskChol 201-239 mg/dl borderline riskChol 240 mg/dl and greater high risk Cholesterol in LDL Calc [Mas s/Vol]Ordered By: Addi Ortega on 04-08-2023 Cholesterol in LDL [Mass/Vol] 99 mg/dL 0-100 [facility] Comment on above: LDL ATP III CLASSIFI CATIONLDL less than 100 mg/dL OptimalLDL 100-129 mg/dL Near or above optimalLDL 130-159 mg/dL Borderline highLDL 160-189 mg/dL HighLDL greater than 189 mg/dL Very high Cholesterol in VLDL Calc [Ma ss/Vol]Ordered By: Addi Ortega on 04-08-2023 Cholesterol in VLDL [Mass/Vol] 18 mg/dL [facility] Creatinine [Mass/volume] in Serum or PlasmaOrdered By: Addi Ortega on 04-08-2023 Creatinine [Mass/Vol] 0.59 mg/dL 0.60-1.20 [facility] Eosinophils Auto (Bld) [#/Vo l]Ordered By: Addi Ortega on 04-08-2023 Eosinophils (Bld) [#/Vol] 0.1 10*3/uL 0.0-0.45 [facility] Eosinophils/100 WBC Auto (Bl d)Ordered By: Addi Ortega on 04-08-2023 Eosinophils/100 WBC (Bld) 1.3 % . [facility] Erythrocyte distribution wid th Auto (RBC) [Ratio]Ordered By: Addi Ortega on 04-08-2023 Erythrocyte distribution width (RBC) [Ratio] 12.6 % 11.9-15.3 [facility] Globulin Calc (S) [Mass/Vol] Ordered By: Addi Ortega on 04-08-2023 Globulin (S) [Mass/Vol] 2.7 g/dL [facility] Glucose [Mass/volume] in Ser um or PlasmaOrdered By: Addi Ortega on 04-08-2023 Glucose [Mass/Vol] 83 mg/dL 70-100 [facility] Hematocrit Auto (Bld) [Volum e fraction]Ordered By: Addi Ortega on 04-08-2023 Hematocrit (Bld) [Volume fraction] 39.3 % 34.0-46.4 [facility] Hemoglobin [Mass/volume] in BloodOrdered By: Addi Ortega on 04-08-2023 Hemoglobin (Bld) [Mass/Vol] 13.6 g/dL 11.8-15.4 [facility] Leukocytes [#/volume] correc hamilton for nucleated erythrocytes in Blood by Automated counOrdered By: Addi Ortega on 04-08-2023 WBC corrected for nucl RBC Auto (Bld) [#/Vol] 7.6 10*3/uL 3.8-11.6 [facility] Lymphocytes Auto (Bld) [#/Vo l]Ordered By: Addi Ortega on 04-08-2023 Lymphocytes (Bld) [#/Vol] 2.9 10*3/uL 1.00-4.8 [facility] Lymphocytes/100 WBC Auto (Bl d)Ordered By: Addi Ortega on 04-08-2023 Lymphocytes/100 WBC (Bld) 38.6 % . [facility] MCH Auto (RBC) [Entitic mass ]Ordered By: Addi Ortega on 04-08-2023 MCH (RBC) [Entitic mass] 31.6 pg 24.7-34.3 [facility] MCHC Auto (RBC) [Mass/Vol]Or dered By: Addi Ortega on 04-08-2023 MCHC (RBC) [Mass/Vol] 34.5 g/dL 32.0-35.0 [facility] MCV Auto (RBC) [Entitic vol] Ordered By: Addi Ortega on 04-08-2023 MCV (RBC) [Entitic vol] 91.7 fL 80-100 [facility] Monocytes Auto (Bld) [#/Vol] Ordered By: Addi Ortega on 04-08-2023 Monocytes (Bld) [#/Vol] 0.4 10*3/uL 0.0-0.8 [facility] Monocytes/100 WBC Auto (Bld) Ordered By: Addi Ortega on 04-08-2023 Monocytes/100 WBC (Bld) 5.8 % . [facility] Neutrophils Auto (Bld) [#/Vo l]Ordered By: Addi Ortega on 04-08-2023 Neutrophils (Bld) [#/Vol] 4.1 10*3/uL 1.8-7.7 [facility] Neutrophils/100 WBC Auto (Bl d)Ordered By: Addi Ortega on 04-08-2023 Neutrophils/100 WBC (Bld) 53.9 % . [facility] No Panel InformationOrdered By: Addi Ortega on 04-08-2023 Estimated GFR (CKD-EPI) > 60.0 mL/Min [facility] Nicotine Metabolite Negative Cutoff=25 [facility] Comment on above: Performed at: - L [address] [id number] Director: Catherine Mendoza MD, Phone: [phone] Pharmacy Creatinine Clearance (Chem N/A [facility] Nucleated erythrocytes [Pres ence] in Blood by Automated countOrdered By: Addi Ortega on 04-08-2023 Nucleated RBC Auto Ql (Bld) 0.0 /100{WBC} 0-0.5 [facility] Platelet mean volume Auto (B ld) [Entitic vol]Ordered By: Addi Ortega on 04-08-2023 Platelet mean volume (Bld) [Entitic vol] 8.6 fL 6.3-10.7 [facility] Platelets Auto (Bld) [#/Vol] Ordered By: Addi Ortega on 04-08-2023 Platelets (Bld) [#/Vol] 361 10*3/uL 150-450 [facility] Potassium [Moles/volume] in Serum or PlasmaOrdered By: Addi Ortega on 04-08-2023 Potassium [Moles/Vol] 4.6 mmol/L 3.5-5.1 [facility] Protein [Mass/volume] in Ser um or PlasmaOrdered By: Addi Ortega on 04-08-2023 Protein [Mass/Vol] 7.5 g/dL 6.4-8.9 [facility] RBC Auto (Bld) [#/Vol]Ordere d By: Addi Ortega on 04-08-2023 RBC (Bld) [#/Vol] 4.29 10*6/uL 3.60-5.00 [facility] Serum or plasma albumin/glob ulin mass ratioOrdered By: Addi Ortega on 04-08-2023 Albumin/Globulin [Mass ratio] 1.8 {ratio} [facility] Serum or plasma anion gap de terminationOrdered By: Addi Ortega on 04-08-2023 Anion gap [Moles/Vol] 12.2 mmol/L 6.0-15.[address] [facility] Serum or plasma high density lipoprotein (HDL) cholesterol measurementOrdered By: Addi Ortega on 04-08-2023 Cholesterol in HDL [Mass/Vol] 45 mg/dL 23-92 [facility] Comment on above: HDL CHOL ATP-III CLA SSIFICATION Cardiovascular RiskHDL > or equal to 60 mg/dL LOWHDL < 40 mg/dL HIGH Serum or plasma total choles terol/high density lipoprotein (HDL) cholesterol mass ratOrdered By: Addi Ortega on 04-08-2023 Cholesterol.total/Cho lesterol in HDL [Mass ratio] 3.6 {ratio} <5.0 [facility] Sodium [Moles/volume] in Ser um or PlasmaOrdered By: Addi Ortega on 04-08-2023 Sodium [Moles/Vol] 139 mmol/L 136-145 [facility] Thyrotropin [Units/volume] i n Serum or PlasmaOrdered By: Addi Ortega on 04-08-2023 TSH Qn 4.55 m[IU]/L 0.45-5.33 [facility] Triglyceride [Mass/volume] i n Serum or PlasmaOrdered By: Addi Ortega on 04-08-2023 Triglyceride [Mass/Vol] 92 mg/dL 0-149 [facility] Comment on above: TRIG ATP III CLASSIF ICATIONTRIG less than 150 mg/dL NormalTRIG 150-199 mg/dL Borderline highTRIG 200-500 mg/dL High TRIG greater than 500 mg/dL Very highStandard traceable to the Center for Disease Conrtrol and Prevention (CDC) test method. Urea nitrogen [Mass/volume] in Serum or PlasmaOrdered By: Addi Ortega on 04-08-2023 Urea nitrogen [Mass/Vol] 18 mg/dL 7-25 [facility] WBC Auto (Bld) [#/Vol]Ordere d By: Addi Ortega on 04-08-2023 WBC (Bld) [#/Vol] 7.6 10*3/uL 3.8-11.6 [facility] C Urineon 03-24-2023 Bacteria identified Cx [...] Locations R1: This test was performed at: [facility], [address] [place] [address], [id number] , , Normal [facility] Comment on above: Performed By: #### 2 [id number], [id number], [id number], [id number], [id number] #### [facility] [address] [place] [address] Abdomen/Pelvis w/o Contra ston 03-23-2023 CT [...] Oral contrast amount in ml's: 0 Normal [facility] Discharge Instructionson Discharge Instructions [id number]:127 Normal [facility] ED Note-Physicianon 03-23-20 ED Note-Physician Basic [...] any medications. States that she was at [facility], where she did wait about 5 [...] and Complexity of Problems Differential Diagnosis: [] [facility] Data External documents reviewed: [] [...] day(s), # 28 cap(s), Refills(s) 0, Pharmacy: [facility], 170.2, cm, 03/22/23 20:14:00 EDT, Height/Length Dosing, 113.5, kg, 03/22/23 20:14:00 EDT, Weight Dosing ketorolac, 30 mg = 1 mL, Injection, IV Push, Once, Stop date 03/22/23 20:51:00 EDT, STAT, Start date 03/22/23 20:51:00 EDT, 03/22/23 20:51:00 EDT ondansetron, 4 mg = 2 mL, Injection, IV Push, Once, Stop date 03/22 (more content not included)... Normal [facility] Comment on above: Result Comment: Elec tronically Signed By: Hector Correa PA-C\.br\Date and Time Signed: 03/22/23 23:35 EDT\.br\Electronically Co-Signed By: Gabriel Curtis DO\.br\Date and Time Co-Signed: 03/23/23 03:21 EDT RAD - Preliminary Cat Scan R eporton 03-23-2023 RAD - Preliminary Cat Scan Report [id number]:127 Normal [facility] Auto Diffon 03-22-2023 Basophils/100 WBC (Bld) 0.5 % Normal 0.0-2.0 [facility] Comment on above: Order Comment: Order Added by Discern Expert. Performed By: #### 2 [id number], [id number], [id number] #### [facility] [address] [place] [address] Basophils/Leukocytes Auto (Bld) [Pure # fraction] 0.0 E9/L Normal 0.0-0.2 [facility] Comment on above: Order Comment: Order Added by Discern Expert. Performed By: #### 2 [id number], [id number], [id number], 1732356, 0069436, 7091937 #### [facility] [address] [place] [address] Eosinophils/100 WBC (Bld) 1.5 % Normal 0.0-8.0 [facility] Comment on above: Order Comment: Order Added by Discern Expert. Performed By: #### 2 489315, 3793687, 00266389, 1592540, 4856322, 4333704 #### [facility] [address] [place] [address] Eosinophils/Leukocyte s Auto (Bld) [Pure # fraction] 0.1 E9/L Normal 0.0-0.5 [facility] Comment on above: Order Comment: Order Added by Discern Expert. Performed By: #### 2 891466, 0359147, 74494021, 7543684, 7375083, 3105125 #### [facility] [address] [place] [address] Lymphocytes/100 WBC (Bld) 34.9 % Normal 14.0-50.0 [facility] Comment on above: Order Comment: Order Added by Discern Expert. Performed By: #### 2 498883, 6908476, 85036186, 7364825, 5141882, 6121030 #### [facility] [address] [place] [address] Lymphocytes/Leukocyte s Auto (Bld) [Pure # fraction] 3.4 E9/L Normal 1.0-4.0 [facility] Comment on above: Order Comment: Order Added by Discern Expert. Performed By: #### 2 457566, 6132709, 06465884, 5498465, 7093389, 0567068 #### [facility] [address] [place] [address] Monocytes/100 WBC (Bld) 6.0 % Normal 4.0-14.0 [facility] Comment on above: Order Comment: Order Added by Discern Expert. Performed By: #### 2 525587, 0146188, 09835720, 4383977, 9353850, 9031327 #### [facility] [address] [place] [address] Monocytes/Leukocytes Auto (Bld) [Pure # fraction] 0.6 E9/L Normal 0.2-1.0 [facility] Comment on above: Order Comment: Order Added by Discern Expert. Performed By: #### 2 786755, 3777522, 67656687, 5442080, 2449861, 2976619 #### [facility] [address] [place] [address] Neutrophils/100 WBC (Bld) 57.1 % Normal 36.0-75.0 [facility] Comment on above: Order Comment: Order Added by Discern Expert. Performed By: #### 2 312030, 8925073, 46042563, 3485436, 3614505, 1876681 #### [facility] [address] [place] [address] Neutrophils/Leukocyte s Auto (Bld) [Pure # fraction] 5.6 E9/L Normal 2.0-7.5 [facility] Comment on above: Order Comment: Order Added by Discern Expert. Performed By: #### 2 173674, 6106487, 72006038, 3234366, 5035358, 5439562 #### [facility] [address] [place] [address] BMPon 03-22-2023 Creatinine [Mass/Vol] 0.5 mg/dL Normal 0.5-1.3 [facility] Comment on above: Performed By: #### 2 829562, 5781032, 27413952, 6901067, 2137955, 6990650 #### [facility] [address] [place] [address] Urea nitrogen [Mass/Vol] 15 mg/dL Normal 5-21 [facility] Comment on above: Performed By: #### 2 032430, 3509224, 96134443, 2716040, 0726582, 2379028 #### [facility] [address] [place] [address] Urea nitrogen/Creatinine [Mass ratio] 30 No Units High 10-20 [facility] Comment on above: Performed By: #### 2 412583, 5604265, 47144962, 9984427, 6251240, 2622674 #### [facility] [address] [place] [address] Anion gap [Moles/Vol] 15 mmol/L Normal 6-16 [facility] Comment on above: Performed By: #### 2 381392, 3828631, 75793228, 3575492, 7673930, 9192389 #### [facility] [address] [place] [address] Calcium [Mass/Vol] 9.6 mg/dL Normal 8.9-11.1 [facility] Comment on above: Performed By: #### 2 734846, 9030412, 91433065, 9905946, 3514738, 8551871 #### [facility] [address] [place] [address] Chloride [Moles/Vol] 103 mmol/L Normal 101-111 [facility] Comment on above: Performed By: #### 2 551899, 7762559, 33154379, 0306426, 9283366, 4029435 #### [facility] [address] [place] [address] CO2 [Moles/Vol] 23 mmol/L Normal 21-31 [facility] Comment on above: Performed By: #### 2 423807, 8500555, 56548447, 8794803, 1590733, 5034657 #### [facility] [address] [place] [address] Glucose [Mass/Vol] 84 mg/dL Normal 55-199 [facility] Comment on above: Result Comment: If t his glucose result represents a fasting glucose, interpretation should refer to the following reference range: 55-99 mg/dL Performed By: #### 2 826658, 5313247, 11167932, 2069186, 1655337, 9520818 #### [facility] [address] [place] [address] Potassium [Moles/Vol] 3.7 mmol/L Normal 3.5-5.3 [facility] Comment on above: Performed By: #### 2 368238, 5093468, 42035217, 2969131, 2157417, 4772573 #### [facility] [address] [place] [address] Sodium [Moles/Vol] 137 mmol/L Normal 135-145 [facility] Comment on above: Performed By: #### 2 290664, 7719376, 74868969, 8064387, 5989120, 1777084 #### [facility] [address] [place] [address] CBC w/ Auto Diffon 3 Erythrocyte distribution width (RBC) [Ratio] 12.5 % Normal 10.9-14.2 [facility] Comment on above: Performed By: #### 2 607539, 2789315, 78949904, 5716940, 3407379, 8871155 #### [facility] [address] [place] [address] Hematocrit (Bld) [Volume fraction] 37.7 % Normal 34.0-46.0 [facility] Comment on above: Performed By: #### 2 372616, 6701503, 94344523, 5429913, 9075831, 6895731 #### [facility] [address] [place] [address] Hemoglobin (Bld) [Mass/Vol] 13.1 g/dL Normal 12.0-16.0 [facility] Comment on above: Performed By: #### 2 768815, 0710519, 27735481, 8192318, 6946423, 8435006 #### [facility] [address] [place] [address] MCH (RBC) [Entitic mass] 31.9 pg Normal 27.0-34.0 [facility] Comment on above: Performed By: #### 2 017529, 6171021, 88498581, 7238718, 4644069, 4351394 #### [facility] [address] [place] [address] MCHC (RBC) [Mass/Vol] 34.8 g/dL Normal 31.4-36.0 [facility] Comment on above: Performed By: #### 2 649207, 0298739, 93651393, 4617218, 2168441, 0143556 #### [facility] [address] [place] [address] MCV (RBC) [Entitic vol] 91.6 fL Normal 80.0-100.0 [facility] Comment on above: Performed By: #### 2 799471, 1795558, 68433709, 9466283, 9681480, 2775044 #### [facility] [address] [place] [address] Platelet mean volume (Bld) [Entitic vol] 7.6 fL Normal 6.4-10.8 [facility] Comment on above: Performed By: #### 2 182614, 5975574, 97430161, 9015119, 9623467, 2375909 #### [facility] [address] [place] [address] Platelets (Bld) [#/Vol] 306.0 E9/L Normal 150.0-500. 0 [facility] Comment on above: Performed By: #### 2 798288, 1557528, 70775067, 3124160, 0084532, 6476608 #### [facility] [address] [place] [address] RBC (Bld) [#/Vol] 4.1 E12/L Low 4.3-5.9 [facility] Comment on above: Performed By: #### 2 989517, 7333217, 86830518, 7986931, 0786076, 7204291 #### [facility] [address] [place] [address] WBC corrected for nucl RBC Auto (Bld) [#/Vol] 9.8 E9/L Normal 4.0-11.0 [facility] Comment on above: Performed By: #### 2 264252, 4588123, 55825754, 3239635, 1510004, 8702858 #### [facility] [address] [place] [address] CHEMISTRYOrdered By: SYSTEM SYSTEM on 03-22-2023 Albumin [...] 133 mL/min/1.73 m2 Normal >=59mL/min /1.73 m2 [facility] Chem S Globulin (S) [Mass/Vol] 3.1 g/dL [...] Consent for Treatmenton Consent for Treatment [id number] Normal [facility] ED Clinical Summaryon 2022 ED Clinical Summary (Inserted Image. Hayley ble to display) [place] [id number] ED Clinical Summary Person Information Name: TAWNYA HERRING [facility]ys[facility] Age: 27 Years : 1995 Sex: Female Language: Mozambican PCP: DARWIN JONES CNP Marital Status: Single Phone: [phone] Visit Id: Visit Reason: Dysuria; Nausea; Flank [...] 03/22/2023 22:52:44 03/22/2023 22:52:44 03/22/2023 22:52:44 ADDRESS: [address] [place] [id number] PHYS DOC NOTES: MEDICAL INFORMATION: Prescriptions Given: New Medications [facility], [address] [facility] [place] [id number], [phone] cephalexin (Keflex 500 mg Cap) 1 Capsules By Mouth every 6 hours for 7 Days. Refills: 0. Medications to Continue with No Changes Other Medications acetaminophen-hydrocodone ([place] 325 mg-5 mg oral tablet) 2 Tablets [...] EDUCATION INFORMATION: Instructions: Urinary Tract Infection, Adult, Pbhn-cy-Zxey Follow up: With: Address: When: DARWIN JONES [address] [place] [phone] Business (1) In 3 days 03/25/2023 Comments: Follow-up with your primary care provider in 3 to 5 days. If symptoms worsen, do not improve, or new symptoms arise please report back to emergency department for further evaluation. DIAGNOSIS: UTI (urinary tract infection) Normal [facility] ED Patient Education Noteon 03-22-2023 ED Patient [...] these instructions at home: Medicines ? Take hafo-jgv-zjbryxu and prescription medicines only as told by [...] Reviewed: 03/14/2021 Elsevier Patient Education ? 2022 [employer] Normal [facility] ED Patient Summaryon 023 ED Patient Summary (Inserted Image. Hayley ble to display) [address] [address] Patient Discharge Instructions Person Information Name: TAWNYA HERRING Age: 27 Years Arrival Date: 03/22/2023 19:52:37 Discharge Diagnosis: UTI (urinary tract infection) Primary Care Physician: DARWIN JONES CNP Provider Information Primary Provider: Gabriel Curtis DO Advanced Java Developer Analyst:None The exam and treatment you received in the Emergency Department were for an urgent problem and are not intended as complete care. It is important that you follow up with a doctor, nurse practitioner, or physician?s geriatric nurse assistant for ongoing care. If your symptoms [...] Follow-up Instructions: With: Address: When: DARWIN JONES [address] [place] [address] [phone] Business (1) In 3 days 03/25/2023 Comments: [...] Patient Education Materials: Urinary Tract Infection, Adult, Lmtx-gj-Fkjr A MESSAGE TO ALL PATIENTS REGARDING OPIOIDS PRESCRIPTION OPIOIDS: WHAT YOU NEED TO KNOW Prescription opioids can be used to help relieve ygvhlxef-pt-wommwg pain and are often prescribed following a [...] of op (more content not included)... Normal [facility] HEMATOLOGYOrdered By: SYSTEM SYSTEM on 03-22-2023 [...] 7.6 fL Normal 6.4 - 10.8 fL [facility] HemeAutoSS Platelets (Bld) [#/Vol] 306.0 E9/L Normal 150.0 - 500.0 E9/L [facility] HemeAutoSS RBC (Bld) [#/Vol] 4.1 E12/L Low 4.3 - 5.9 E12/L [facility] HemeAutoSS WBC corrected for nucl RBC Auto (Bld) [#/Vol] 9.8 E9/L Normal 4.0 - 11.0 E9/L [facility] HemeAutoSS Hep Func Panelon 03-22-2023 Albumin [Mass/Vol] 4.2 g/dL Normal 3.3-5.0 [facility] Comment on above: Performed By: #### 2 562004, 8347159, 79361389, 6584101, 1785962, 7814926 #### [facility] [address] [place] [address] Albumin/Globulin (S) [Mass conc ratio] 1.4 Normal 1.1-2.2 [facility] Comment on above: Performed By: #### 2 682794, 6783745, 48930898, 9962790, 0747075, 3481151 #### [facility] [address] [place] [address] ALP [Catalytic activity/Vol] 54 Int._Unit/L Normal 21-98 [facility] Comment on above: Performed By: #### 2 592131, 7787672, 58406489, 4888240, 2013229, 9359949 #### [facility] [address] [place] [address] ALT No additional P-5'-P [Catalytic activity/Vol] 24 Int._Unit/L Normal 6-46 [facility] Comment on above: Performed By: #### 2 004248, 9358166, 45340084, 1800542, 8885669, 2592156 #### [facility] [address] [place] [address] AST [Catalytic activity/Vol] 18 Int._Unit/L Normal 5-43 [facility] Comment on above: Performed By: #### 2 008535, 7824648, 28885835, 2728269, 9095627, 4381260 #### [facility] [address] [place] [address] Bilirubin [Mass/Vol] 0.7 mg/dL Normal 0.0-1.1 [facility] Comment on above: Performed By: #### 2 036964, 2316969, 48514925, 8649713, 6676886, 8459043 #### [facility] [address] [place] [address] Bilirubin.direct [Mass/Vol] 0.1 mg/dL Normal 0.1-0.4 [facility] Comment on above: Performed By: #### 2 292599, 2864561, 36371147, 6986672, 0165517, 0246807 #### [facility] [address] [place] [address] Bilirubin.indirect [Mass or moles/Vol] 0.6 mg/dL Normal 0.1-0.9 [facility] Comment on above: Performed By: #### 2 547388, 1323871, 25982979, 9702012, 3147595, 2545268 #### [facility] [address] [place] [address] Globulin (S) [Mass/Vol] 3.1 g/dL Normal 1.4-4.0 [facility] Comment on above: Performed By: #### 2 781226, 2122047, 72772937, 4815908, 9608550, 7368429 #### [facility] [address] [place] [address] Protein [Mass/Vol] 7.3 g/dL Normal 6.0-7.8 [facility] Comment on above: Performed By: #### 2 471806, 3506432, 23784865, 9633277, 4783106, 8494947 #### [facility] [address] [place] [address] Lipase Levelon 03-22-2023 Lipase [Catalytic activity/Vol] 28 U/L Normal 13-58 [facility] Comment on above: Performed By: #### 2 713389, 4359204, 00888645, 0075601, 3710100, 1334274 #### [facility] [address] [place] [address] SEROLOGYOrdered By: Lucina Shaikh on 03-22-2023 HCG.beta subunit (U) [Moles/Vol] Negative Normal [facility] Man Sero U BetaHcg Qualon 03-22-2023 HCG.beta subunit (U) [Moles/Vol] Negative Normal [facility] Comment on above: Performed By: #### 2 504094, 2360701, 68887184, 7256843, 4745202, 0426877 #### [facility] [address] [place] [address] UA With Cult Reflexon 2022 Bacteria LM Ql (Urine sed) TRACE Normal Trace [facility] Comment on above: Performed By: #### 2 249469, 4255919, 94934521, 9345468, 2500141, 3593138 #### [facility] [address] [place] [address] Bilirubin Ql (U) Negative Normal Negative [facility] Comment on above: Performed By: #### 2 638809, 0715277, 19523798, 1782418, 8566613, 1031848 #### [facility] [address] [place] [address] Clarity (U) SL CLOUDY Abnormal Clear [facility] Comment on above: Performed By: #### 2 726750, 0755993, 92570471, 6536413, 0766381, 8392934 #### [facility] [address] [place] [address] Color (U) YELLOW Normal Yellow [facility] Comment on above: Performed By: #### 2 505135, 0758477, 58703685, 6825758, 8648079, 1109189 #### [facility] [address] [place] [address] Crystals LM Ql (Urine sed) Present Normal [facility] Comment on above: Performed By: #### 2 219702, 3109734, 93625165, 3217220, 8193711, 7546383 #### [facility] [address] [place] [address] Epithelial cells.squamous LM.HPF (Urine sed) [#/Area] 0-2 Normal 0-2 [facility] Comment on above: Performed By: #### 2 199335, 7803766, 68947520, 8870452, 6497384, 8540925 #### [facility] [address] [place] [address] Glucose Test strip (U) [Mass/Vol] Negative Normal Negative [facility] Comment on above: Performed By: #### 2 062271, 9641331, 34507825, 5798158, 5423413, 3851089 #### [facility] [address] [place] [address] Hemoglobin Ql (U) 2+ Abnormal Negative [facility] Comment on above: Performed By: #### 2 416180, 0038870, 16946939, 6647709, 5580607, 8097103 #### [facility] [address] [place] [address] Ketones (U) [Mass/Vol] 1+ Abnormal Negative [facility] Comment on above: Performed By: #### 2 863068, 6451032, 82168230, 2190108, 5900373, 8588357 #### [facility] [address] [place] [address] [place].plasma/Lithiu m.RBC (Bld) [Mass ratio] 0-3 Normal 0-3 [facility] Comment on above: Performed By: #### 2 201057, 3648508, 22745233, 3299807, 1251462, 9502448 #### [facility] [address] [place] [address] Mucus Ql (Urine sed) TRACE Normal [facility] Comment on above: Performed By: #### 2 286673, 5494267, 97145123, 6608248, 3997430, 3707338 #### [facility] [address] [place] [address] Nitrite Ql (U) Negative Normal Negative [facility] Comment on above: Performed By: #### 2 697027, 0851719, 51693921, 0667185, 3594603, 0311477 #### [facility] [address] [place] [address] pH (U) 5.5 [pH] Invalid Interpretation Code 5.0-9.0 [facility] Comment on above: Performed By: #### 2 946139, 6967848, 55870130, 6305758, 9927814, 8055646 #### [facility] [address] [place] [address] Protein (U) [Mass/Vol] Negative Normal Negative [facility] Comment on above: Performed By: #### 2 948806, 0465295, 94062827, 5632813, 4662907, 6031331 #### [facility] [address] [place] [address] Specific gravity (U) [Rel density] >=1.030 Invalid Interpretation Code 1.005-1.03 0 [facility] Comment on above: Performed By: #### 2 582421, 8281506, 33213577, 2999848, 8797935, 1980284 #### [facility] [address] [place] [address] Type of Urine collection method Clean Catch Normal [facility] Comment on above: Performed By: #### 2 680162, 1293931, 20076474, 5591415, 8678310, 1580751 #### [facility] [address] [place] [address] Urobilinogen Qn (U) 0.2 {Aly'U}/dL Normal 0.0-1.0 [facility] Comment on above: Performed By: #### 2 829879, 6504705, 31678808, 5068533, 7582063, 4203679 #### [facility] [address] [place] [address] WBC Auto Ql (U) 2+ Abnormal Negative [facility] Comment on above: Performed By: #### 2 707717, 8417570, 04964858, 3070442, 9151220, 2982483 #### [facility] [address] [place] [address] WBC LM.HPF (Urine sed) [#/Area] 16-25 Abnormal 0-5 [facility] Comment on above: Performed By: #### 2 538691, 8867866, 29077701, 0428069, 3299465, 5700826 #### [facility] [address] [place] [address] URINALYSISOrdered By: Elizabeth Shaikh on 03-22-2023 Bacteria [...] Interpretation Code Negative [facility] UA Auto SS [place].plasma/Lithiu m.RBC (Bld) [Mass ratio] 0-3 /HPF Normal [...] FT UA Auto SS Urobilinogen Qn (U) 0.6071522 {Aly'U}/dL Normal 0.0 - 1.0 EU/dL FT UA Auto SS WBC Auto Ql (U) 2+ *ABN* (03/22/23 8:17 PM) Invalid Interpretation Code Negative [facility] UA Auto SS WBC LM.HPF (Urine sed) [#/Area] 16-25 /HPF Invalid Interpretation Code 0-5/HPF [facility] UA Auto SS eGFRon 03-22-2023 GFR/1.73 sq M.predicted among non-blacks MDRD (S/P/Bld) [Vol rate/Area] 133 mL/min/1.73 m2 Normal >=59 [facility] Comment on above: Order Comment: Order added by Discern Expert. Result Comment: Advanced Quality Engineer vinh kidney disease could be indicated at eGFR's of less than 60 mL/min/1.73m2. Kidney failure is indicated at less than 15 mL/min/1.73m2. Performed By: #### 2 795736, 4784489, 58454959, 2960495, 1434646, 2933737 #### [facility] [address] [place] [address] Alanine aminotransferase [En zymatic activity/volume] in Serum or PlasmaOrdered By: Zurdo Ortega on 02-28-2023 ALT [Catalytic activity/Vol] 21 U/L 7 [facility] HIV 1 and HIV-2 antibody ass ay with HIV-1 p24 antigen detectionOrdered By: Zurdo Ortega on 02-28-2023 HIV 1+2 Ab+HIV1 p24 Ag IA Ql Non-Reactive Non Reactive [facility] Comment on above: HIV NegativeHIV-1/HI V-2 antibodies and HIV-1 p24 antigen were NOTdetected. There is no laboratory evidence of HIV infection. Hepatitis B virus surface Ag [Presence] in Serum or Plasma by ImmunoassayOrdered By: Zurdo Ortega on 02-28-2023 HBV surface Ag IA Ql Negative Negative [facility] Comment on above: Performed at: [facility] [employer] [place] [id number] Director: Alexis Ashton PhD, Phone: [phone] Hepatitis C virus IgG Ab [Pr esence] in Serum or Plasma by ImmunoassayOrdered By: Zurdo Ortega on 02-28-2023 HCV IgG IA Ql Non-Reactive Non Reactive [facility] No Panel InformationOrdered By: Zurdo Ortega on 02-28-2023 Hepatitis C Interpretation See comment . [facility] Comment on above: Not infected with HC V unless early or acute infection issuspected (which may be delayed in an immunocompromisedindividual), or other evidence exists to indicate HCVinfection. Serum hepatitis B virus surf nikolas antibody detectionOrdered By: Zurdo Ortega on 02-28-2023 HBV surface Ab Ql (S) Reactive . [facility] Comment on above: Non Reactive: Incons istent with immunity, less than 10 mIU/mL Reactive: Consistent with immunity, greater than 9.9 mIU/mL PAP ACOG PANEL 2: 21 to 29on 12-17-2022 . . Normal [facility] Comment on above: Performed By: #### 4 256790 #### [facility] [address] [place] [address] [address] Regine Fortune Age Gdln ACOG Testing - Normal [facility] Comment on above: Performed By: #### 4 328915 #### [facility] [address] [place] [address] [address] Regine Fortune DIAGNOSIS: Comment Normal [facility] Comment on above: Result Comment: NEGA TIVE FOR INTRAEPITHELIAL LESION OR MALIGNANCY. Performed By: #### 4 332008 #### [facility] [address] [place] [address] Dr. Regine Fortune Methodology: Comment Normal [facility] Comment on above: Result Comment: This liquid based ThinPrep(R) pap test was screened with the use of an image guided system. Performed By: #### 4 876340 #### [facility] [address] [place] [address] Dr. Regine Fortune Note: Comment Normal [facility] Comment on above: Result Comment: The Pap smear is a screening test designed to aid in the detection of premalignant and malignant conditions of the uterine cervix. It is not a diagnostic procedure and should not be used as the sole means of detecting cervical cancer. Both false-positive and false-negative reports do occur. . Performed By: #### 4 357961 #### [facility] [address] [place] [address] Dr. 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 Regine Fortune Reflex Criteria: Comment [facility] Comment on above: Result Comment: The HPV DNA reflex criteria were not met with this specimen result therefore, no HPV testing was performed. . Performed By: #### 4 558202 #### [facility] [address] [place] [address] Dr. Regine Fortune Specimen adequacy: Comment Normal [facility] Comment on above: Result Comment: Sati sfactory for evaluation. Endocervical and/or squamous metaplastic cells (endocervical component) are present. Areas of partially obscuring inflammatory exudate are present. Performed By: #### 4 749132 #### [facility] [address] [place] [address] Dr. Regine Fortune Thyrotropin [Units/volume] i n Serum or PlasmaOrdered By: Brain Way on 12-10-2022 TSH Qn 2.86 m[IU]/L 0.45-5.33 [facility] Thyroxine (T4) free [Mass/vo lume] in Serum or PlasmaOrdered By: Brain Way on 12-10-2022 Free T4 [Mass/Vol] 0.94 ng/dL 0.61-1.12 [facility] Albumin [Mass/volume] in Ser um or PlasmaOrdered By: Ofelia Hester on 10-16-2022 Albumin [Mass/Vol] 4.1 g/dL 3.2-5.5 [facility] Alkaline phosphatase [Enzyma tic activity/volume] in Serum or PlasmaOrdered By: Ofelia Hester on 10-16-2022 ALP [Catalytic activity/Vol] 56 U/L 32-92 [facility] Amylaseon 10-16-2022 Amylase 43 U/L Normal 28-100 U/L [employer] Other Amylase [Enzymatic activity/ volume] in Serum or PlasmaOrdered By: Ofelia Hester on 10-16-2022 Amylase [Catalytic activity/Vol] 43 U/L 28-100 [facility] Aspartate aminotransferase [ Enzymatic activity/volume] in Serum or PlasmaOrdered By: Ofelia Hester on 10-16-2022 AST [Catalytic activity/Vol] 16 U/L 10-42 [facility] Bilirubin.total [Mass/volume ] in Serum or PlasmaOrdered By: Ofelia Hester on 10-16-2022 Bilirubin [Mass/Vol] 0.6 mg/dL 0.3-1.2 [place] [facility] Calcium [Mass/volume] in Ser um or PlasmaOrdered By: Ofelia Hester on 10-16-2022 Calcium [Mass/Vol] 9.3 mg/dL 8.2-10.2 [facility] Carbon dioxide, total [Moles /volume] in Serum or PlasmaOrdered By: Ofelia Hester on 10-16-2022 CO2 [Moles/Vol] 22.1 mmol/L 22.0-30.0 [facility] Chloride [Moles/volume] in S ghada or PlasmaOrdered By: Ofelia Hester on 10-16-2022 Chloride [Moles/Vol] 105 mmol/L 95-114 [facility] Comprehensive Metabolic Pane samy 03-03-2023 Albumin [Mass/Vol] 4.722755 g/dL Normal 3.2-5.5 g/dL [facility] [employer] Other ALT [Catalytic activity/Vol] 17 U/L Normal 10-60 U/L [employer] Other Bilirubin [Mass/Vol] 0.0097444 mg/dL Normal 0.3- 1.2 mg/dL [employer] Other Calcium [Mass/Vol] 9.0200803 mg/dL Normal 8.2-10 .2 mg/dL [employer] Other CO2 [Moles/Vol] 22.91554526 mmol/L Normal 22.0-3 0.0 mmol/L [employer] Other Creatinine [Mass/Vol] 0.08782650 mg/dL Normal 0. 44-1.03 mg/dL [employer] Other Potassium [Moles/Vol] 4.32261897 mmol/L Normal 3 .5-5.1 mmol/L [employer] Other Protein [Mass/Vol] 6.095594 g/dL Normal 6.1-7.9 g/dL [employer] Other Comprehensive Metabolic Panel > 60 [employer] Other Comprehensive Metabolic Panel 2.5 g/dL [employer] Other Creatinine and Glomerular fi ltration rate.predicted panel (S/P/Bld)Ordered By: Ofelia Hester on 10-16-2022 Creatinine [Mass/Vol] 0.55 mg/dL 0.44-1.03 [facility] Estimated glomerular filtrat ion rate (GFR) non- AmericanOrdered By: Ofelia Hester on 10-16-2022 GFR/1.73 sq M.predicted among non-blacks MDRD (S/P/Bld) [Vol rate/Area] > 60 mL/Min [facility] Globulin Calc (S) [Mass/Vol] Ordered By: Ofelia Hester on 10-16-2022 Globulin (S) [Mass/Vol] 2.5 g/dL [facility] Glucose [Mass/volume] in Ser um or PlasmaOrdered By: Ofelia Hester on 10-16-2022 Glucose [Mass/Vol] 86 mg/dL 70-100 [facility] Comment on above: ADA recommended refe rence rangeRandom Glucose Reference Range is dependent on time and content of last meal. Glucose of more than 200 mg/dL in a nonstressed, ambulatory subject supports the diagnosis of Diabetes Mellitus. Laboratory - Chemistry and C hemistry - challengeOrdered By: Ofelia Hester on 10-16-2022 Lipase [Catalytic activity/Vol] 35.0 U/L 22-51 [facility] Lipaseon 10-16-2022 Lipase [Catalytic activity/Vol] 35.28626 U/L Normal 22-51 U/L [employer] Other No Panel InformationOrdered By: Ofelia Hester on 10-16-2022 Estimated GFR () > 60 mL/Min [facility] Comment on above: GFR estimated refere nce range: According to KDOQI guidelines, <60 ml/min/1.73m2 is sufficient to diagnose a patient with chronic kidney disease. Pharmacy Creatinine Clearance (Chem N/A [facility] Potassium [Moles/volume] in Serum or PlasmaOrdered By: Ofelia Hester on 10-16-2022 Potassium [Moles/Vol] 4.3 mmol/L 3.5-5.1 [facility] Protein [Mass/volume] in Ser um or PlasmaOrdered By: Ofelia Hester on 10-16-2022 Protein [Mass/Vol] 6.6 g/dL 6.1-7.9 [facility] Serum or plasma alanine galaviz otransferase measurement without P-5'-P (enzymatic activiOrdered By: Ofelia Hester on 10-16-2022 ALT No additional P-5'-P [Catalytic activity/Vol] 17 U/L 10-60 [facility] Serum or plasma albumin/glob ulin mass ratioOrdered By: Ofelia Hester on 10-16-2022 Albumin/Globulin [Mass ratio] 1.6 {ratio} [facility] Serum or plasma anion gap de terminationOrdered By: Ofelia Hester on 10-16-2022 Anion gap [Moles/Vol] 13.2 mmol/L 6.0-15.[address] [facility] Sodium [Moles/volume] in Ser um or PlasmaOrdered By: Ofelia Hester on 10-16-2022 Sodium [Moles/Vol] 136 mmol/L 136-146 [facility] Urea nitrogen [Mass/volume] in Serum or PlasmaOrdered By: Ofelia Hester on 10-16-2022 Urea nitrogen [Mass/Vol] 11 mg/dL 9- [facility] T4 FREE/FREE THYROXon 2021 Free T4 [Mass/Vol] 1.3 ng/dL 0.9 - 1.7 ng/dL [facility] TSH BLDon 07-14-2022 TSH Qn 2.480 m[IU]/L 0.270 - 4.200 mIU/L [facility] VITAMIN B12 BLOODon 07-14-20 Cobalamin (Vitamin B12) [Mass/Vol] 267 pg/mL 232 - 1,245 pg/mL [facility] Quick Fluon 06-04-2022 FLUAV Ab CF (S) [Titer] Negative [employer] [facility] [employer] Other FLUBV Ab CF (S) [Titer] Negative [employer] Other Quick Strepon 06-04-2022 S. pyogenes Org specific cx Ql (Throat) Negative [employer] [facility] [employer] Other Quick Strep [employer] [facility] [employer] Other SARS-CoV-2 (COVID-19) RNA NA A+probe Ql (Resp)on 06-04-2022 SARS-CoV-2 (COVID-19) RNA LAUREN+probe Ql (Unsp spec) Negative [facility] [employer] Other TSH DL <= 0.005 mIU/L QnOrde red By: Darwin Jones on 04-14-2022 TSH Qn 6.39 m[IU]/L 0.45-5.33 [facility] Thyroxine (T4) free [Mass/vo lume] in Serum or PlasmaOrdered By: Darwin Jones on 04-14-2022 Free T4 [Mass/Vol] 0.82 ng/dL 0.61-1.12 [facility] Triiodothyronine (T3) Free [ Mass/volume] in Serum or PlasmaOrdered By: Darwin Jones on 04-14-2022 Free T3 [Mass/Vol] 4.08 pg/mL 2.50-3.90 [facility] Serum or plasma calcium luis urement (mass/volume)Ordered By: Saad Valera on 04-06-2022 Calcium [Mass/Vol] 9.4 mg/dL 8.2-10.2 [facility] Serum or plasma intact parat hyroid hormone measurement (mass/volume)Ordered By: Saad Valera on 04-06-2022 Parathyrin.intact [Mass/Vol] 54.8 pg/mL [facility] CHEMISTRYOrdered By: Lab ROP User on 02-18-2022 Glucose [Mass/Vol] 106 mg/dL High 55 - 99 mg/dL [facility] Subsection Comment on above: Result Comment: Aurelia breana Meter POC Device SN [id number] Invalid Interpretation Code [facility] Subsection POC User ID [id number] Invalid Interpretation Code [facility] Subsection POC Username ZHOU OBINNA Invalid Interpretation Code [facility] Subsection Serum or plasma thyroglobuli n antibody assay (units/volume)Ordered By: Darwin Jones on 02-13-2022 Thyroglobulin Ab Qn 971.2 [IU]/mL 0.0-0.[address] [facility] Comment on above: Thyroglobulin Antibo dy measured by [employer] Performed at: - [facility] [id number] Ladle Car Operator: Alexis Ashton PhD, Phone: [phone] Serum or plasma thyroperoxid ase antibody assay (units/volume)Ordered By: Darwin Jones on 02-13-2022 TPO Ab Qn 327 [IU]/mL 0-34 [facility] Thyroxine (T4) free [Mass/vo lume] in Serum or PlasmaOrdered By: Darwin Jones on 02-13-2022 Free T4 [Mass/Vol] 0.66 ng/dL 0.61-1.12 [facility] Triiodothyronine (T3) Free [ Mass/volume] in Serum or PlasmaOrdered By: Darwin Jones on 02-13-2022 Free T3 [Mass/Vol] 4.04 pg/mL 2.50-3.90 [facility] Albumin [Mass/volume] in Ser um or PlasmaOrdered By: Addi Ortega on 02-10-2022 Albumin [Mass/Vol] 4.1 g/dL 3.2-5.5 [facility] Basophils Auto (Bld) [#/Vol] Ordered By: Addi Ortega on 02-10-2022 Basophils (Bld) [#/Vol] 0.0 10*3/uL 0.0-0.2 [facility] Basophils/100 WBC Auto (Bld) Ordered By: Addi Ortega on 02-10-2022 Basophils/100 WBC (Bld) 0.4 % . [facility] Blood hemoglobin measurement (mass/volume)Ordered By: Addi Ortega on 02-10-2022 Hemoglobin (Bld) [Mass/Vol] 14.1 g/dL 11.8-15.4 [facility] Blood leukocytes automated c ount (number/volume)Ordered By: Addi Ortega on 02-10-2022 WBC (Bld) [#/Vol] 7.3 10*3/uL 4.5-11.0 [facility] Cholesterol [Mass/volume] in Serum or PlasmaOrdered By: Addi Ortega on 02-10-2022 Cholesterol [Mass/Vol] 195 mg/dL 140-200 [facility] Comment on above: Chol less than 200 m g/dl low risk Chol 201-239 mg/dl borderline risk Chol 240 mg/dl and greater high risk Cholesterol in LDL Calc [Mas s/Vol]Ordered By: Addi Ortega on 02-10-2022 Cholesterol in LDL [Mass/Vol] 113 mg/dL 0-100 [facility] Comment on above: LDL ATP III CLASSIFI CATION LDL less than 100 mg/dL Optimal LDL 100-129 mg/dL Near or above optimal LDL 130-159 mg/dL Borderline high LDL 160-189 mg/dL High LDL greater than 189 mg/dL Very high Cholesterol in VLDL Calc [Ma ss/Vol]Ordered By: Addi Ortega on 02-10-2022 Cholesterol in VLDL [Mass/Vol] 26 mg/dL [facility] Creatinine and Glomerular fi ltration rate.predicted panel (S/P/Bld)Ordered By: Addi Ortega on 02-10-2022 Creatinine [Mass/Vol] 0.71 mg/dL 0.44-1.03 [facility] Eosinophils Auto (Bld) [#/Vo l]Ordered By: Addi Ortega on 02-10-2022 Eosinophils (Bld) [#/Vol] 0.1 10*3/uL 0.0-0.45 [facility] Eosinophils/100 WBC Auto (Bl d)Ordered By: Addi Ortega on 02-10-2022 Eosinophils/100 WBC (Bld) 1.5 % . [facility] Erythrocyte distribution wid th Auto (RBC) [Ratio]Ordered By: Addi Ortega on 02-10-2022 Erythrocyte distribution width (RBC) [Ratio] 14.0 % 11.9-15.3 [facility] Estimated glomerular filtrat ion rate (GFR) non- AmericanOrdered By: Addi Ortega on 02-10-2022 GFR/1.73 sq M.predicted among non-blacks MDRD (S/P/Bld) [Vol rate/Area] > 60 mL/Min [facility] Globulin Calc (S) [Mass/Vol] Ordered By: Addi Ortega on 02-10-2022 Globulin (S) [Mass/Vol] 2.8 g/dL [facility] Hematocrit Auto (Bld) [Volum e fraction]Ordered By: Addi Ortega on 02-10-2022 Hematocrit (Bld) [Volume fraction] 40.3 % 34.0-46.4 [facility] Laboratory - Chemistry and C hemistry - challengeOrdered By: Addi Ortega on 02-10-2022 Glucose [Mass/Vol] 90 mg/dL 70-100 [facility] Laboratory - Hematology and Cell countsOrdered By: Addi Ortega on 02-10-2022 Nucleated RBC/100 WBC (Bld) [Ratio] 0.1 % 0-0.5 [facility] Lymphocytes Auto (Bld) [#/Vo l]Ordered By: Addi Ortega on 02-10-2022 Lymphocytes (Bld) [#/Vol] 3.3 10*3/uL 1.00-4.8 [facility] Lymphocytes/100 WBC Auto (Bl d)Ordered By: Addi Ortega on 02-10-2022 Lymphocytes/100 WBC (Bld) 45.2 % . [facility] MCH Auto (RBC) [Entitic mass ]Ordered By: Addi Ortega on 02-10-2022 MCH (RBC) [Entitic mass] 33.0 pg 24.7-34.3 [facility] MCHC Auto (RBC) [Mass/Vol]Or dered By: Addi Ortega on 02-10-2022 MCHC (RBC) [Mass/Vol] 34.9 g/dL 32.0-35.0 [facility] MCV Auto (RBC) [Entitic vol] Ordered By: Addi Ortega on 02-10-2022 MCV (RBC) [Entitic vol] 94.6 fL 80-100 [facility] Monocyte %Ordered By: Addi Ortega on 02-10-2022 Monocyte % 134 mg/dL 35-149 [facility] Comment on above: TRIG ATP III CLASSIF ICATION TRIG less than 150 mg/dL Normal TRIG 150-199 mg/dL Borderline high TRIG 200-500 mg/dL High TRIG greater than 500 mg/dL Very high Standard traceable to the Center for Disease Conrtrol and Prevention (CDC) test method. Monocytes Auto (Bld) [#/Vol] Ordered By: Addi Ortega on 02-10-2022 Monocytes (Bld) [#/Vol] 0.5 10*3/uL 0.0-0.8 [facility] Monocytes/100 WBC Auto (Bld) Ordered By: Addi Ortega on 02-10-2022 Monocytes/100 WBC (Bld) 6.3 % . [facility] Neutrophils Auto (Bld) [#/Vo l]Ordered By: Addi Ortega on 02-10-2022 Neutrophils (Bld) [#/Vol] 3.4 10*3/uL 1.8-7.7 [facility] Neutrophils/100 WBC Auto (Bl d)Ordered By: Addi Ortega on 02-10-2022 Neutrophils/100 WBC (Bld) 46.6 % . [facility] No Panel InformationOrdered By: Addi Ortega on 02-10-2022 Estimated GFR () > 60 mL/Min [facility] Comment on above: GFR estimated refere nce range: According to KDOQI guidelines, <60 ml/min/1.73m2 is sufficient to diagnose a patient with chronic kidney disease. Nicotine Metabolite Negative Cutoff=25 [facility] Comment on above: Performed at: [address] [id number] [employer]le Car Operator: Catherine Mendoza MD, Phone: [phone] Pharmacy Creatinine Clearance (Chem N/A [facility] Platelet mean volume Auto (B ld) [Entitic vol]Ordered By: Addi Ortega on 02-10-2022 Platelet mean volume (Bld) [Entitic vol] 8.4 fL 6.3-10.7 [facility] Platelets Auto (Bld) [#/Vol] Ordered By: Addi Ortega on 02-10-2022 Platelets (Bld) [#/Vol] 321 10*3/uL 150-450 [facility] Protein [Mass/volume] in Ser um or PlasmaOrdered By: Addi Ortega on 02-10-2022 Protein [Mass/Vol] 6.9 g/dL 6.1-7.9 [facility] RBC Auto (Bld) [#/Vol]Ordere d By: Addi Ortega on 02-10-2022 RBC (Bld) [#/Vol] 4.26 10*6/uL 3.60-5.00 [facility] Serum or plasma alanine galaviz otransferase measurement without P-5'-P (enzymatic activiOrdered By: Addi Ortega on 02-10-2022 ALT No additional P-5'-P [Catalytic activity/Vol] 26 U/L 10-60 [facility] Serum or plasma albumin/glob ulin mass ratioOrdered By: Addi Ortega on 02-10-2022 Albumin/Globulin [Mass ratio] 1.5 {ratio} [facility] Serum or plasma alkaline hosea sphatase measurement (enzymatic activity/volume)Ordered By: Addi Ortega on 02-10-2022 ALP [Catalytic activity/Vol] 47 U/L 32-92 [facility] Serum or plasma aspartate am inotransferase measurement (enzymatic activity/volume)Ordered By: Addi Ortega on 02-10-2022 AST [Catalytic activity/Vol] 18 U/L 10-42 [facility] Serum or plasma calcium luis urement (mass/volume)Ordered By: Addi Ortega on 02-10-2022 Calcium [Mass/Vol] 9.3 mg/dL 8.2-10.2 [facility] Serum or plasma chloride radha surement (moles/volume)Ordered By: Addi Ortega on 02-10-2022 Chloride [Moles/Vol] 99 mmol/L 95-114 [facility] Serum or plasma high density lipoprotein (HDL) cholesterol measurementOrdered By: Addi Ortega on 02-10-2022 Cholesterol in HDL [Mass/Vol] 55 mg/dL 35-85 [facility] Comment on above: HDL CHOL ATP-III CLA SSIFICATION Cardiovascular Risk HDL > or equal to 60 mg/dL LOW HDL < 40 mg/dL HIGH Serum or plasma potassium me asurement (moles/volume)Ordered By: Addi Ortega on 02-10-2022 Potassium [Moles/Vol] 4.1 mmol/L 3.5-5.1 [facility] Serum or plasma sodium measu rement (moles/volume)Ordered By: Addi Ortega on 02-10-2022 Sodium [Moles/Vol] 135 mmol/L 136-146 [facility] Serum or plasma total biliru bin measurement (mass/volume)Ordered By: Addi Ortega on 02-10-2022 Bilirubin [Mass/Vol] 0.7 mg/dL 0.3-1.2 [facility] Serum or plasma total carbon dioxide measurement (moles/volume)Ordered By: Addi Ortega on 02-10-2022 CO2 [Moles/Vol] 23.3 mmol/L 22.0-30.0 [facility] Serum or plasma total choles terol/high density lipoprotein (HDL) cholesterol mass ratOrdered By: Addi Ortega on 02-10-2022 Cholesterol.total/Cho lesterol in HDL [Mass ratio] 3.5 {ratio} <5.0 [facility] Serum or plasma urea nitroge n measurement (mass/volume)Ordered By: Addi Ortega on 02-10-2022 Urea nitrogen [Mass/Vol] 17 mg/dL 9- [facility] TSH DL <= 0.005 mIU/L QnOrde red By: Addi Ortega on 02-10-2022 TSH Qn 57.67 m[IU]/L 0.45-5.33 [facility] No Panel Informationon 09-03 6 {mm/hr} Normal 0-34 -[facility] [facility] [address] DO Work Phone: [...] Vital Signs Recorded: 03Sep2021 10:02AMRecorded: 03Sep2021 09:55AM Uvasakhn565, LUE, Ikvqsey460, RUE, Sitting Ihiqqupsc62, LUE, Jhernqg98, RUE, Sitting Heart Rate72, Apical Height5 ft 7 in [id number] lb 9.6 oz BMI Walrvjvbli54.36 kg/m2 BSA Calculated2.05 Tobacco Useb) No EKG [...] . Sign (more content not included)... Normal [employer] Tobacco Screening.on 022 Tobacco use status [facility] b) No -[facility] 600 DO Work Phone: Vital Signs Date Time Vital Sign Value Performing Clinician Facility 10-14-2024 09:03-0500 Blood Pressure Location Lesley Bella [facility] 10-14-2024 09:03-0500 Body temperature 98.24 [degF] Lesley Bella [facility] 10-14-2024 09:03-0500 Diastolic blood pressure 72 mm[Hg] Lesley Blanco [facility] 10-14-2024 09:03-0500 Heart rate 118 /min Lesley Bella [facility] 10-14-2024 09:03-0500 SaO2% (BldA) [Mass fraction] 99 % Lesley Blanco [facility] 10-14-2024 09:03-0500 Systolic blood pressure 114 mm[Hg] Lesley Blanco [facility] 10-10-2024 11:02-0500 Body mass index (BMI) [Ratio] 40.79 kg/m2 Brain Seamus DO Work Phone: [facility] 10-10-2024 11:02-0500 Body weight 118.12 kg Brain Seamus DO Work Phone: [facility] 10-10-2024 11:02-0500 Diastolic blood pressure 78 mm[Hg] Brain Seamus DO Work Phone: [facility] 10-10-2024 11:02-0500 Systolic blood pressure 114 mm[Hg] Brain Seamus DO Work Phone: [facility] 10-05-2024 14:20-0500 Body mass index (BMI) [Ratio] 40.72 kg/m2 Mya MCMILLAN Work Phone: [facility] 10-05-2024 14:20-0500 Body weight 117.94 kg Mya MCMILLAN Work Phone: [facility] 10-05-2024 14:20-0500 Diastolic blood pressure 70 mm[Hg] Mya MCMILLAN Work Phone: [facility] 10-05-2024 14:20-0500 Systolic blood pressure 120 mm[Hg] Mya MCMILLAN Work Phone: [facility] 09-19-2024 14:33-0500 Body mass index (BMI) [Ratio] 39.49 kg/m2 Brain Seamus DO Work Phone: [facility] 09-19-2024 14:33-0500 Body weight 114.36 kg Brain Seamus DO Work Phone: [facility] 09-19-2024 14:33-0500 Diastolic blood pressure 70 mm[Hg] Brain Seamus DO Work Phone: [facility] 09-19-2024 14:33-0500 Systolic blood pressure 120 mm[Hg] Brain Seamus DO Work Phone: [facility] 09-07-2024 14:44-0500 Body mass index (BMI) [Ratio] 39.75 kg/m2 Mya MCMILLAN Work Phone: [facility] 09-07-2024 14:44-0500 Body weight 115.12 kg Mya Finch PA Work Phone: [facility] 09-07-2024 14:44-0500 Diastolic blood pressure 82 mm[Hg] Mya Finch PA Work Phone: [facility] 09-07-2024 14:44-0500 Systolic blood pressure 120 mm[Hg] Mya Stef PA Work Phone: [facility] 09-06-2024 14:04-0500 Body temperature 97.88 [degF] Flash Franco [facility] 09-06-2024 14:04-0500 Diastolic blood pressure 77 mm[Hg] Flash Franco [facility] 09-06-2024 14:04-0500 Heart rate 101 /min Flash Franco [facility] 09-06-2024 14:04-0500 Respiratory rate 18 /min Flash Franco [facility] 09-06-2024 14:04-0500 SaO2% (BldA) [Mass fraction] 99 % Flash Franco [facility] 09-06-2024 14:04-0500 Systolic blood pressure 122 mm[Hg] Flash Franco [facility] 09-05-2024 15:45-0500 Hourly Rounding Rogelio Nath [facility] Comment on above: Result Comment: discharge instructions g darek. monitors off and pt up to dress. 09-05-2024 15:35-0500 Hourly Rounding Rogelio Nath [facility] Comment on above: Result Comment: pt was able to keep spri te and lemon ice down. Wants to go home. 09-05-2024 14:49-0500 Hourly Rounding Rogelio Nath [facility] Comment on above: Result Comment: sprite, lemon ice and ju ice given per pt request. 09-05-2024 07:35-0500 Body temperature 98.24 [degF] Rogelio Nath [facility] 09-05-2024 07:35-0500 Diastolic blood pressure 42 mm[Hg] Rogelio Nath [facility] 09-05-2024 07:35-0500 Heart rate 109 /min Rogelio Nath [facility] 09-05-2024 07:35-0500 Mean blood pressure 65 mm[Hg] Rogelio Nath [facility] 09-05-2024 07:35-0500 Respiratory rate 18 /min Rogelio Nath [facility] 09-05-2024 07:35-0500 Systolic blood pressure 111 mm[Hg] Rogelio Nath [facility] 09-05-2024 07:30-0500 Blood Pressure Location Rogelio Nath [facility] 09-05-2024 04:32-0500 Blood Pressure Location Rogelio Nath [facility] 09-05-2024 04:32-0500 Body temperature 98.24 [degF] Rogelio Nath [facility] 09-05-2024 04:32-0500 Diastolic blood pressure 72 mm[Hg] Rogelio Nath [facility] 09-05-2024 04:32-0500 Heart rate 104 /min Rogelio Nath [facility] 09-05-2024 04:32-0500 Mean blood pressure 90 mm[Hg] Rogelio Nath [facility] 09-05-2024 04:32-0500 Respiratory rate 16 /min Rogelio Nath [facility] 09-05-2024 04:32-0500 SaO2% (BldA) [Mass fraction] 98 % Rogelio Nath [facility] 09-05-2024 04:32-0500 Systolic blood pressure 127 mm[Hg] Rogelio Nath [facility] 09-05-2024 04:00-0500 Diastolic blood pressure 64 mm[Hg] Rogelio Nath [facility] 09-05-2024 04:00-0500 Heart rate 115 /min Rogelio Nath [facility] 09-05-2024 04:00-0500 Mean blood pressure 86 mm[Hg] Rogelio Nath [facility] 09-05-2024 04:00-0500 Systolic blood pressure 129 mm[Hg] Rogelio Nath [facility] 09-05-2024 03:06-0500 Body temperature 97.7 [degF] Rogelio Nath [facility] 09-05-2024 03:06-0500 Heart rate 128 /min Rogelio Nath [facility] 09-05-2024 03:06-0500 Respiratory rate 20 /min Rogelio Nath [facility] 09-05-2024 03:06-0500 SaO2% (BldA) [Mass fraction] 98 % Rogelio Nath [facility] 08-25-2024 12:21-0500 Body height 170.18 cm Darwin Easterwood 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 Work Phone: [facility] 08-25-2024 12:21-0500 Body mass index (BMI) [Ratio] 39.6 kg/m2 Darwin Easterwood 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 Work Phone: [facility] 08-25-2024 12:21-0500 Body weight 114.75 kg Darwin Easterwood 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 Work Phone: [facility] 08-25-2024 12:21-0500 Diastolic blood pressure 84 mm[Hg] Darwin Easterwood 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 Work Phone: [facility] 08-25-2024 12:21-0500 Heart rate 108 /min Darwin Easterwood 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 Work Phone: [facility] 08-25-2024 12:21-0500 Respiratory rate 18 /min Darwin Easterwood 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 Work Phone: [facility] 08-25-2024 12:21-0500 SaO2% (BldA) [Mass fraction] 98 % Darwin Easterwood 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 Work Phone: [facility] 08-25-2024 12:21-0500 Systolic blood pressure 132 mm[Hg] Darwin Easterwood 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 Work Phone: [facility] 08-23-2024 11:00-0500 Body mass index (BMI) [Ratio] 40.16 kg/m2 Brain Seamus DO Work Phone: [facility] 08-23-2024 11:00-0500 Body weight 116.3 kg Brain Seamus DO Work Phone: [facility] 08-23-2024 11:00-0500 Diastolic blood pressure 78 mm[Hg] Brain Seamus DO Work Phone: [facility] 08-23-2024 11:00-0500 Systolic blood pressure 120 mm[Hg] Brain Seamus DO Work Phone: [facility] 07-11-2024 13:09-0500 Body mass index (BMI) [Ratio] 38.97 kg/m2 Brain Seamus DO Work Phone: [facility] 07-11-2024 13:09-0500 Body weight 112.86 kg Brain Seamus DO Work Phone: [facility] 07-11-2024 13:09-0500 Diastolic blood pressure 76 mm[Hg] Brain Seamus DO Work Phone: [facility] 07-11-2024 13:09-0500 Systolic blood pressure 120 mm[Hg] Brain Seamus DO Work Phone: [facility] 06-28-2024 08:04-0500 Body weight Darwin Jones APRN Work Phone: [facility] Comment on above: Not provided. 2024 14:13-0500 Diastolic blood pressure 78 mm[Hg] Hayden Reilly MD Work Phone: [facility] 2024 14:13-0500 Heart rate 88 /min Hayden Reilly MD Work Phone: [facility] 2024 14:13-0500 Systolic blood pressure 125 mm[Hg] Hayden Reilly MD Work Phone: [facility] 2024 13:18-0500 Body height 170.2 cm Hayden Reilly MD Work Phone: [facility] 06-12-2024 10:19-0400 Body mass index (BMI) [Ratio] 38.37 kg/m2 Brain Seamus DO Work Phone: [facility] 06-12-2024 10:19-0400 Body weight 111.13 kg Brain Seamus DO Work Phone: [facility] 06-12-2024 10:19-0400 Diastolic blood pressure 80 mm[Hg] Brain Seamus DO Work Phone: [facility] 06-12-2024 10:19-0400 Systolic blood pressure 122 mm[Hg] Brain Seamus DO Work Phone: [facility] 05-11-2024 11:04-0400 Body height 170.18 cm 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 Darwin Easterwood Work Phone: [facility] 05-11-2024 11:04-0400 Body mass index (BMI) [Ratio] 38.2 kg/m2 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 Darwin Easterwood Work Phone: [facility] 05-11-2024 11:04-0400 Body temperature 97.8 [degF] 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 Darwin Easterwood Work Phone: [facility] 05-11-2024 11:04-0400 Body weight 110.67 kg 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 Darwin Easterwood Work Phone: [facility] 05-11-2024 11:04-0400 Diastolic blood pressure 74 mm[Hg] 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 Darwin Easterwood Work Phone: [facility] 05-11-2024 11:04-0400 Heart rate 90 /min 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 Darwin Easterwood Work Phone: [facility] 05-11-2024 11:04-0400 Respiratory rate 20 /min 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 Darwin Easterwood Work Phone: [facility] 05-11-2024 11:04-0400 SaO2% (BldA) [Mass fraction] 98 % 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 Darwin Easterwood Work Phone: [facility] 05-11-2024 11:04-0400 Systolic blood pressure 126 mm[Hg] SHIRLEY Jones Work Phone: [facility] 05-10-2024 13:50-0400 Body mass index (BMI) [Ratio] 38.39 kg/m2 Brain Seamus DO Work Phone: [facility] 05-10-2024 13:50-0400 Body weight 111.19 kg Brain Seamus DO Work Phone: [facility] 05-10-2024 13:50-0400 Diastolic blood pressure 76 mm[Hg] Brain Seamus DO Work Phone: [facility] 05-10-2024 13:50-0400 Systolic blood pressure 120 mm[Hg] Brain Seamus DO Work Phone: [facility] 04-20-2024 10:37-0400 Body mass index (BMI) [Ratio] 38.53 kg/m2 Rbain Seamus DO Work Phone: [facility] 04-20-2024 10:37-0400 Body weight 111.58 kg Brain Seamus DO Work Phone: [facility] 04-20-2024 10:37-0400 Diastolic blood pressure 76 mm[Hg] Brain Seamus DO Work Phone: [facility] 04-20-2024 10:37-0400 Systolic blood pressure 122 mm[Hg] Brain Seamus DO Work Phone: [facility] 04-07-2024 09:42-0400 Body mass index (BMI) [Ratio] 38.86 kg/m2 Nom Nurse [facility] 04-07-2024 09:42-0400 Body weight 112.55 kg Nom Nurse [facility] 04-07-2024 09:42-0400 Diastolic blood pressure 70 mm[Hg] Noms Nurse [facility] 04-07-2024 09:42-0400 Systolic blood pressure 120 mm[Hg] Noms Nurse [facility] 03-18-2024 11:50-0400 Diastolic blood pressure 83 mm[Hg] Toan Jaya [facility] 03-18-2024 11:50-0400 Heart rate 75 /min Tona Steine [facility] 03-18-2024 11:50-0400 Mean blood pressure 97 mm[Hg] Toan Jaya [facility] 03-18-2024 11:50-0400 Respiratory rate 16 /min Toan Jaya [facility] 03-18-2024 11:50-0400 SaO2% (BldA) [Mass fraction] 98 % Toan Jaya [facility] 03-18-2024 11:50-0400 Systolic blood pressure 126 mm[Hg] Toan Jaya [facility] 03-18-2024 09:46-0400 Hourly Rounding Toan Steine [facility] 03-18-2024 09:11-0400 Hourly Rounding Toan Steine [facility] 03-18-2024 08:10-0400 Body temperature 98.6 [degF] Toan Jaya [facility] 03-18-2024 08:10-0400 Diastolic blood pressure 91 mm[Hg] Toan Jaya [facility] 03-18-2024 08:10-0400 Heart rate 98 /min Toan Jaya [facility] 03-18-2024 08:10-0400 Hourly Rounding Toan Steine [facility] 03-18-2024 08:10-0400 Respiratory rate 17 /min Toan Jaya [facility] 03-18-2024 08:10-0400 SaO2% (BldA) [Mass fraction] 98 % Toan Jaya [facility] 03-18-2024 08:10-0400 Systolic blood pressure 135 mm[Hg] Toan Lake [facility] 01-25-2024 08:59-0400 Body height 170.18 cm 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 Darwin Easterwood Work Phone: [facility] 01-25-2024 08:59-0400 Body mass index (BMI) [Ratio] 37.4 kg/m2 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 Darwin Easterwood Work Phone: [facility] 01-25-2024 08:59-0400 Body temperature 98 [degF] 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 Darwin Easterwood Work Phone: [facility] 01-25-2024 08:59-0400 Body weight 108.4 kg 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 Darwin Easterwood Work Phone: [facility] 01-25-2024 08:59-0400 Diastolic blood pressure 80 mm[Hg] 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 Darwin Easterwood Work Phone: [facility] 01-25-2024 08:59-0400 Heart rate 98 /min 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 Darwin Easterwood Work Phone: [facility] 01-25-2024 08:59-0400 Respiratory rate 20 /min 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 Darwin Easterwood Work Phone: [facility] 01-25-2024 08:59-0400 SaO2% (BldA) [Mass fraction] 99 % 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 Darwin Easterwood Work Phone: [facility] 01-25-2024 08:59-0400 Systolic blood pressure 122 mm[Hg] 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 Darwin Easterwood Work Phone: [facility] 12-24-2023 09:56-0400 Body height 170.18 cm 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 Darwin Easterwood Work Phone: [facility] 12-24-2023 09:56-0400 Body mass index (BMI) [Ratio] 37.7 kg/m2 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Akilah Orosco Eastermacy Work Phone: [facility] 12-24-2023 09:56-0400 Body temperature 97.6 [degF] 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 Darwin Eastermacy Work Phone: [facility] 12-24-2023 09:56-0400 Body weight 109.31 kg 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 Darwin Jonesermacy Work Phone: [facility] 12-24-2023 09:56-0400 Diastolic blood pressure 84 mm[Hg] 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 Darwin Eastermacy Work Phone: [facility] 12-24-2023 09:56-0400 Heart rate 102 /min 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 Darwin Jonesermacy Work Phone: [facility] 12-24-2023 09:56-0400 Respiratory rate 20 /min 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 Darwin Jonesermacy Work Phone: [facility] 12-24-2023 09:56-0400 SaO2% (BldA) [Mass fraction] 98 % 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Akilah Jonesermacy Work Phone: [facility] 12-24-2023 09:56-0400 Systolic blood pressure 126 mm[Hg] 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Akilah Jonesermacy Work Phone: [facility] 11-25-2023 09:01-0400 Body height 170.18 cm 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Akilah Orosco Eastermacy Work Phone: [facility] 11-25-2023 09:01-0400 Body mass index (BMI) [Ratio] 37.7 kg/m2 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 Darwin Eastermacy Work Phone: [facility] 11-25-2023 09:01-0400 Body temperature 97 [degF] 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Akilah Edgara Eastermacy Work Phone: [facility] 11-25-2023 09:01-0400 Body weight 109.31 kg 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 Darwin Jonesermacy Work Phone: [facility] 11-25-2023 09:01-0400 Diastolic blood pressure 76 mm[Hg] 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 Darwin Jonesermacy Work Phone: [facility] 11-25-2023 09:01-0400 Heart rate 95 /min 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 Darwin Jones Work Phone: [facility] 11-25-2023 09:01-0400 Respiratory rate 20 /min 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 Darwin Jones Work Phone: [facility] 11-25-2023 09:01-0400 SaO2% (BldA) [Mass fraction] 98 % 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 Darwin Jones Work Phone: [facility] 11-25-2023 09:01-0400 Systolic blood pressure 120 mm[Hg] 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 Darwin Jones Work Phone: [facility] 11-18-2023 08:03-0400 Body weight 110.68 kg Ruby Whittington MD Work Phone: [facility] 11-18-2023 08:03-0400 Diastolic blood pressure 92 mm[Hg] Ruby Whittington MD Work Phone: [facility] 11-18-2023 08:03-0400 Heart rate 100 /min Ruby Whittington MD Work Phone: [facility] 11-18-2023 08:03-0400 Systolic blood pressure 132 mm[Hg] Ruby Whittington MD Work Phone: [facility] 10-20-2023 09:05-0500 Body height 170.18 cm 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 Darwin Robert Work Phone: [facility] 10-20-2023 09:05-0500 Body mass index (BMI) [Ratio] 38.3 kg/m2 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 Darwin Jones Work Phone: [facility] 10-20-2023 09:05-0500 Body temperature 98 [degF] 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Akilah Jones Work Phone: [facility] 10-20-2023 09:05-0500 Body weight 111.13 kg 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Akilah Jones Work Phone: [facility] 10-20-2023 09:05-0500 Diastolic blood pressure 78 mm[Hg] 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Akilah Jones Work Phone: [facility] 10-20-2023 09:05-0500 Heart rate 82 /min 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Akilah Jones Work Phone: [facility] 10-20-2023 09:05-0500 Respiratory rate 20 /min 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Akilah Jones Work Phone: [facility] 10-20-2023 09:05-0500 SaO2% (BldA) [Mass fraction] 98 % 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Akilah Jones Work Phone: [facility] 10-20-2023 09:05-0500 Systolic blood pressure 124 mm[Hg] 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Akilah Jones Work Phone: [facility] 09-29-2023 10:41-0500 Blood Pressure Location [facility] [place] [facility] 09-29-2023 10:41-0500 Body temperature 98.24 [degF] Tyroneevangelina Rock [facility] 09-29-2023 10:41-0500 Diastolic blood pressure 78 mm[Hg] Tyrone Rock [facility] 09-29-2023 10:41-0500 Heart rate 95 /min Tyrone Rock [facility] 09-29-2023 10:41-0500 SaO2% (BldA) [Mass fraction] 97 % Tyrone Rock [facility] 09-29-2023 10:41-0500 Systolic blood pressure 122 mm[Hg] Tyrone Rock [facility] 09-21-2023 09:00-0500 Body height 170.18 cm Darwin Easterwood Other [employer] Other 09-21-2023 09:00-0500 Body mass index (BMI) [Ratio] 38.37 kg/m2 Darwin Easterwood Other [employer] Other 09-21-2023 09:00-0500 Body temperature 98 [degF] Darwin Easterwood Other [employer] Other 09-21-2023 09:00-0500 Body weight 111.13 kg Darwin Easterwood Other [employer] Other 09-21-2023 09:00-0500 Diastolic blood pressure 84 mm[Hg] Darwin Easterwood Other [employer] Other 09-21-2023 09:00-0500 Respiratory rate 20 /min Darwin Easterwood Other [employer] Other 09-21-2023 09:00-0500 SaO2% (BldA) [Mass fraction] 98 % Darwin Easterwood Other [employer] Other 09-21-2023 09:00-0500 Systolic blood pressure 126 mm[Hg] Darwin Easterwood Other [employer] Other 08-25-2023 09:30-0500 Body height 170.18 cm Darwin [employer] Other [facility] 08-25-2023 09:30-0500 Body mass index (BMI) [Ratio] 39.46 kg/m2 Darwin Easterwood Other [employer] Other 08-25-2023 09:30-0500 Body temperature 97.6 [degF] Darwin Easterwood Other [employer] Other 08-25-2023 09:30-0500 Body weight 114.31 kg Darwin Easterwood Other [facility] [employer] Other 08-25-2023 09:30-0500 Body weight 114.3 kg 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 Darwin Easterwood Work Phone: [facility] 08-25-2023 09:30-0500 Diastolic blood pressure 80 mm[Hg] Darwin Easterwood Other [facility] 08-25-2023 09:30-0500 Respiratory rate 20 /min Darwin Easterwood Other [employer] Other 08-25-2023 09:30-0500 SaO2% (BldA) [Mass fraction] 98 % Darwin Easterwood Other [facility] [employer] Other 08-25-2023 09:30-0500 Systolic blood pressure 120 mm[Hg] Darwin Easterwood Other [facility] 07-23-2023 09:30-0500 Body height 170.18 cm 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 Darwin Easterwood Work Phone: [facility] 07-23-2023 09:30-0500 Body weight 116.57 kg 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 Darwin Easterwood Work Phone: [facility] 07-23-2023 09:30-0500 Diastolic blood pressure 80 mm[Hg] 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 Darwin Easterwood Work Phone: [facility] 07-23-2023 09:30-0500 Systolic blood pressure 118 mm[Hg] 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 Darwin Easterwood Work Phone: [facility] 06-23-2023 09:30-0500 Body height 170.18 cm Darwin Easterwood Other [employer] Other 06-23-2023 09:30-0500 Body mass index (BMI) [Ratio] 40.4 kg/m2 Darwin Easterwood Other [employer] Other 06-23-2023 09:30-0500 Body temperature 97.4 [degF] Darwin Easterwood Other [employer] Other 06-23-2023 09:30-0500 Body weight 117.03 kg Darwin Robertermacy Other [employer] Other 06-23-2023 09:30-0500 Diastolic blood pressure 78 mm[Hg] Darwin Easterwood Other [employer] Other 06-23-2023 09:30-0500 Respiratory rate 20 /min Darwin Easterwood Other [employer] Other 06-23-2023 09:30-0500 SaO2% (BldA) [Mass fraction] 98 % Darwin Easterwood Other [employer] Other 06-23-2023 09:30-0500 Systolic blood pressure 120 mm[Hg] Darwin Easterwood Other [employer] Other 06-08-2023 14:00-0400 Body temperature 97.2 [degF] Francy Gan PA-C Work Phone: [facility] 05-26-2023 10:30-0400 Body height 170.18 cm Darwin Easterwood Other [employer] Other 05-26-2023 10:30-0400 Body mass index (BMI) [Ratio] 41.5 kg/m2 Darwin Easterwood Other [employer] Other 05-26-2023 10:30-0400 Body temperature 98.4 [degF] Darwin Easterwood Other [employer] Other 05-26-2023 10:30-0400 Body weight 120.2 kg Darwin Easterwood Other [employer] Other 05-26-2023 10:30-0400 Diastolic blood pressure 70 mm[Hg] Darwin Easterwood Other [employer] Other 05-26-2023 10:30-0400 Respiratory rate 20 /min Darwin Easterwood Other [employer] Other 05-26-2023 10:30-0400 SaO2% (BldA) [Mass fraction] 97 % Darwin Easterwood Other [employer] Other 05-26-2023 10:30-0400 Systolic blood pressure 112 mm[Hg] Darwin Easterwood Other [employer] Other 04-28-2023 09:15-0400 Body height 170.18 cm Darwin Easterwood Other [employer] Other 04-28-2023 09:15-0400 Body mass index (BMI) [Ratio] 41.34 kg/m2 Darwin Easterwood Other [employer] Other 04-28-2023 09:15-0400 Body temperature 97.2 [degF] Darwin Easterwood Other [employer] Other 04-28-2023 09:15-0400 Body weight 119.75 kg Darwin Easterwood Other [employer] Other 04-28-2023 09:15-0400 Diastolic blood pressure 82 mm[Hg] Darwin Easterwood Other [employer] Other 04-28-2023 09:15-0400 Respiratory rate 20 /min Darwin Easterwood Other [employer] Other 04-28-2023 09:15-0400 SaO2% (BldA) [Mass fraction] 97 % Darwin Easterwood Other [employer] Other 04-28-2023 09:15-0400 Systolic blood pressure 120 mm[Hg] Darwin Easterwood Other [employer] Other 04-16-2023 11:00-0400 Body height 170.18 cm Darwin Easterwood Other [employer] Other 04-16-2023 11:00-0400 Body mass index (BMI) [Ratio] 41.03 kg/m2 Darwin Easterwood Other [employer] Other 04-16-2023 11:00-0400 Body temperature 97.8 [degF] Darwin Easterwood Other [employer] Other 04-16-2023 11:00-0400 Body weight 118.84 kg Darwinkenan Jones Other [employer] Other 04-16-2023 11:00-0400 Diastolic blood pressure 80 mm[Hg] Darwin Easterwood Other [employer] Other 04-16-2023 11:00-0400 Respiratory rate 20 /min Darwin Blucarat Other [employer] Other 04-16-2023 11:00-0400 SaO2% (BldA) [Mass fraction] 98 % Darwin Blucarat Other [employer] Other 04-16-2023 11:00-0400 Systolic blood pressure 120 mm[Hg] Darwin Easterwood Other [employer] Other 03-22-2023 22:51-0400 Diastolic blood pressure 74 mm[Hg] Kaylinn Dokken [facility] 03-22-2023 22:51-0400 Heart rate 80 /min Kaylinn Dokken [facility] 03-22-2023 22:51-0400 Mean blood pressure 92 mm[Hg] Kaylinn Dokken [facility] 03-22-2023 22:51-0400 Respiratory rate 16 /min Kaylinn Dokken [facility] 03-22-2023 22:51-0400 SaO2% (BldA) [Mass fraction] 98 % Kaylinn Dokken [facility] 03-22-2023 22:51-0400 Systolic blood pressure 128 mm[Hg] Kaylinn Dokken [facility] 03-22-2023 21:24-0400 Heart rate 76 /min Kaylinn Dokken [facility] 03-22-2023 21:24-0400 Respiratory rate 16 /min Kaylinn Dokken [facility] 03-22-2023 21:24-0400 SaO2% (BldA) [Mass fraction] 97 % Kaylinn Dokken [facility] 03-22-2023 19:54-0400 Body temperature 98.06 [degF] Kaylinn Dokken [facility] 03-22-2023 19:54-0400 Diastolic blood pressure 89 mm[Hg] Kaylinn Dokken [facility] 03-22-2023 19:54-0400 Heart rate 81 /min Kaylinn Dokken [facility] 03-22-2023 19:54-0400 Respiratory rate 18 /min Kaylinn Dokken [facility] 03-22-2023 19:54-0400 SaO2% (BldA) [Mass fraction] 99 % Kaylinn Dokken [facility] 03-22-2023 19:54-0400 Systolic blood pressure 138 mm[Hg] Kaylinn Dokken [facility] 03-22-2023 15:18-0400 Body height 170.18 cm 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 Darwni Easterwood Work Phone: [facility] 03-22-2023 15:18-0400 Body temperature 98.2 [degF] 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 Darwin Easterwood Work Phone: [facility] 03-22-2023 15:18-0400 Body weight 120.5 kg 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Akilah Jones Work Phone: [facility] 03-22-2023 15:18-0400 Diastolic blood pressure 74 mm[Hg] SHIRLEY Jones Work Phone: [facility] 03-22-2023 15:18-0400 Heart rate 92 /min 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Akilah Jones Work Phone: [facility] 03-22-2023 15:18-0400 Respiratory rate 20 /min SHIRLEY Jones Work Phone: [facility] 03-22-2023 15:18-0400 SaO2% (BldA) [Mass fraction] 97 % 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Akilah L[employer]Str[employer] Work Phone: [facility] 03-22-2023 15:18-0400 Systolic blood pressure 175 mm[Hg] SHIRLEY Jones Work Phone: [facility] 10-05-2022 09:00-0500 Body height 170.18 cm Ofelia Missler Other [employer] Other 10-05-2022 09:00-0500 Body mass index (BMI) [Ratio] 37.21 kg/m2 Ofelia Missler Other [employer] Other 10-05-2022 09:00-0500 Body weight 107.78 kg Ofelia Missler Other [employer] Other 10-05-2022 09:00-0500 Diastolic blood pressure 45 mm[Hg] Ofelia Missler Other [employer] Other 10-05-2022 09:00-0500 Respiratory rate 18 /min Ofelia Missler Other [employer] Other 10-05-2022 09:00-0500 SaO2% (BldA) [Mass fraction] 97 % Ofelia Missler Other [employer] Other 10-05-2022 09:00-0500 Systolic blood pressure 100 mm[Hg] Ofelia Missler Other [employer] Other 09-02-2022 11:30-0500 Body height 170.18 cm Ofelia Missler Other [employer] Other 09-02-2022 11:30-0500 Body mass index (BMI) [Ratio] 38.04 kg/m2 Ofelia Missler Other [employer] Other 09-02-2022 11:30-0500 Body weight 110.18 kg Ofelia Missler Other [employer] Other 09-02-2022 11:30-0500 Diastolic blood pressure 79 mm[Hg] Ofelia Missler Other [employer] Other 09-02-2022 11:30-0500 Respiratory rate 18 /min Ofelia Missler Other [employer] Other 09-02-2022 11:30-0500 SaO2% (BldA) [Mass fraction] 96 % Ofelia Missler Other [employer] Other 09-02-2022 11:30-0500 Systolic blood pressure 119 mm[Hg] Ofelia Missler Other [employer] Other 01-10-2023 14:00-0500 Body height 170.18 cm Lilly Fitt Other [employer] Other 08-25-2022 14:00-0500 Body mass index (BMI) [Ratio] 38.01 kg/m2 Lilly Fitt Other [employer] Other 08-25-2022 14:00-0500 Body weight 110.09 kg Lilly Fitt Other [employer] Other 07-31-2022 09:45-0500 Body height 170.18 cm Ofelia Missler Other [employer] Other 07-31-2022 09:45-0500 Body mass index (BMI) [Ratio] 38.2 kg/m2 Ofelia Missler Other [employer] Other 07-31-2022 09:45-0500 Body weight 110.63 kg Ofelia Missler Other [employer] Other 07-31-2022 09:45-0500 Diastolic blood pressure 78 mm[Hg] Ofelia Missler Other [employer] Other 07-31-2022 09:45-0500 Respiratory rate 18 /min Ofelia Missler Other [employer] Other 07-31-2022 09:45-0500 SaO2% (BldA) [Mass fraction] 96 % Ofelia Missler Other [employer] Other 07-31-2022 09:45-0500 Systolic blood pressure 135 mm[Hg] Ofelia Missler Other [employer] Other 07-14-2022 08:49-0500 Body height 170.5 cm Ruby Whittington MD Work Phone: [facility] 07-14-2022 08:49-0500 Body weight 111.58 kg Ruby Whittington MD Work Phone: [facility] 07-14-2022 08:49-0500 Diastolic blood pressure 73 mm[Hg] Ruby Whittington MD Work Phone: [facility] 07-14-2022 08:49-0500 Heart rate 92 /min Ruby Whittington MD Work Phone: [facility] 07-14-2022 08:49-0500 Systolic blood pressure 140 mm[Hg] Ruby Whittington MD Work Phone: [facility] 06-17-2022 15:45-0400 Body height 170.18 cm Ofelia Missler Other [employer] Other 06-17-2022 15:45-0400 Body mass index (BMI) [Ratio] 38.99 kg/m2 Ofelia Missler Other [employer] Other 06-17-2022 15:45-0400 Body weight 112.95 kg Ofelia Missler Other [employer] Other 06-17-2022 15:45-0400 Diastolic blood pressure 90 mm[Hg] Ofelia Missler Other [employer] Other 06-17-2022 15:45-0400 Respiratory rate 18 /min Ofelia Missler Other [employer] Other 06-17-2022 15:45-0400 SaO2% (BldA) [Mass fraction] 96 % Ofelia Missler Other [employer] Other 06-17-2022 15:45-0400 Systolic blood pressure 140 mm[Hg] Ofelia Hester Other [employer] Other 06-04-2022 13:00-0400 Body height 170.18 cm Sima Ross Other [employer] Other 06-04-2022 13:00-0400 Body mass index (BMI) [Ratio] 38.37 kg/m2 Sima Ross Other [employer] Other 06-04-2022 13:00-0400 Body temperature 98.6 [degF] Sima Ross Other [employer] Other 06-04-2022 13:00-0400 Body weight 111.13 kg Sima Ross Other [employer] Other 06-04-2022 13:00-0400 Diastolic blood pressure 83 mm[Hg] Sima Ross Other [employer] Other 06-04-2022 13:00-0400 Respiratory rate 18 /min Sima Ross Other [employer] Other 06-04-2022 13:00-0400 SaO2% (BldA) [Mass fraction] 99 % Sima Ross Other [employer] Other 06-04-2022 13:00-0400 Systolic blood pressure 124 mm[Hg] Sima Ross Other [employer] Other 05-27-2022 12:15-0400 Body height 170.18 cm Lilly Luke Other [employer] Other 05-18-2022 09:30-0400 Body height 170.18 cm Ofelia Missler Other [employer] Other 05-18-2022 09:30-0400 Body mass index (BMI) [Ratio] 39.37 kg/m2 Ofelia Missler Other [employer] Other 05-18-2022 09:30-0400 Body temperature 98.1 [degF] Ofelia Missler Other [employer] Other 05-18-2022 09:30-0400 Body weight 114.04 kg Ofelia Missler Other [employer] Other 05-18-2022 09:30-0400 Diastolic blood pressure 80 mm[Hg] Ofelia Missler Other [employer] Other 05-18-2022 09:30-0400 Respiratory rate 18 /min Ofelia Missler Other [employer] Other 05-18-2022 09:30-0400 SaO2% (BldA) [Mass fraction] 99 % Ofelia Missler Other [employer] Other 05-18-2022 09:30-0400 Systolic blood pressure 115 mm[Hg] Ofelia Missler Other [employer] Other 04-17-2022 09:30-0400 Body height 170.18 cm Sitrion Other [employer] Other 04-17-2022 09:30-0400 Body mass index (BMI) [Ratio] 39.15 kg/m2 [employer] Other [employer] Other 04-17-2022 09:30-0400 Body temperature 96.9 [degF] Darwin Easterwood Other [employer] Other 04-17-2022 09:30-0400 Body weight 113.4 kg Darwin Easterwood Other [employer] Other 04-17-2022 09:30-0400 Diastolic blood pressure 82 mm[Hg] Darwin Easterwood Other [employer] Other 04-17-2022 09:30-0400 Respiratory rate 20 /min Darwin Easterwood Other [employer] Other 04-17-2022 09:30-0400 SaO2% (BldA) [Mass fraction] 99 % Darwin Easterwood Other [employer] Other 04-17-2022 09:30-0400 Systolic blood pressure 124 mm[Hg] Darwin Easterwood Other [employer] Other 02-18-2022 21:41-0400 Diastolic blood pressure 88 mm[Hg] Fazal Antoni [facility] 02-18-2022 21:41-0400 Heart rate 84 /min Fazal Antoni [facility] 02-18-2022 21:41-0400 Mean blood pressure 101 mm[Hg] Fazal Antoni [facility] 02-18-2022 21:41-0400 Respiratory rate 17 /min Fazal Antoni [facility] 02-18-2022 21:41-0400 SaO2% (BldA) [Mass fraction] 98 % Darwin Easterwood Other [employer] [facility] [employer] Other 02-18-2022 21:41-0400 Systolic blood pressure 126 mm[Hg] Fazal Antoni [facility] 02-18-2022 20:42-0400 gluc 106 mg/dL Fazal Antoni [facility] 02-18-2022 20:42-0400 gluc Fazal Antoni [facility] 02-18-2022 20:33-0400 Body temperature 98.06 [degF] Fazal Antoni [facility] 02-18-2022 20:33-0400 Diastolic blood pressure 99 mm[Hg] Fazal Antoni [facility] 02-18-2022 20:33-0400 Heart rate 99 /min Fazal Antoni [facility] 02-18-2022 20:33-0400 Respiratory rate 18 /min Fazal Antoni [facility] 02-18-2022 20:33-0400 Systolic blood pressure 153 mm[Hg] Fazal Antoni [facility] 02-18-2022 10:00-0400 Body height 170.18 cm Darwin [employer] Other [employer] [facility] [employer] Other 02-18-2022 10:00-0400 Body mass index (BMI) [Ratio] 38.52 kg/m2 Darwin [employer] Other [employer] Other 02-18-2022 10:00-0400 Body temperature 97 [degF] [employer] Other [employer] Other 02-18-2022 10:00-0400 Body weight 111.59 kg Darwin Easterwood Other [employer] Other 02-18-2022 10:00-0400 Diastolic blood pressure 82 mm[Hg] Darwin Easterwood Other [employer] Other 02-18-2022 10:00-0400 Respiratory rate 20 /min Darwin Easterwood Other [employer] Other 02-18-2022 10:00-0400 Systolic blood pressure 118 mm[Hg] Darwin Easterwood Other [employer] Other 02-11-2022 12:00-0400 Body height 170.18 cm Darwin Easterwood Other [employer] Other 02-11-2022 12:00-0400 Body mass index (BMI) [Ratio] 37.9 kg/m2 Darwin Easterwood Other [employer] Other 02-11-2022 12:00-0400 Body temperature 97.2 [degF] Darwin Easterwood Other [employer] Other 02-11-2022 12:00-0400 Body weight 109.77 kg Darwin Easterwood Other [employer] Other 02-11-2022 12:00-0400 Diastolic blood pressure 88 mm[Hg] Darwin Easterwood Other [employer] Other 02-11-2022 12:00-0400 Respiratory rate 20 /min Darwin Easterwood Other [employer] Other 02-11-2022 12:00-0400 SaO2% (BldA) [Mass fraction] 98 % Darwin Jones Other [employer] Other 02-11-2022 12:00-0400 Systolic blood pressure 126 mm[Hg] Darwin [employer] Other [employer] Other 09-03-2021 10:02-0500 Diastolic blood pressure 86 mm[Hg] Unknown Unknown -[facility] [facility] DO Work Phone: 09-03-2021 10:02-0500 Systolic blood pressure 110 mm[Hg] Unknown Unknown -[facility] [facility] DO Work Phone: 09-03-2021 09:55-0500 Body height 170.18 cm Unknown Unknown [facility] 600 DO Work Phone: 09-03-2021 09:55-0500 Body mass index (BMI) [Ratio] 32.36 kg/m2 Unknown Unknown [facility] 600 DO Work Phone: 09-03-2021 09:55-0500 Body surface area Derived from formula 2.05 m2 Unknown Unknown [facility] [facility] DO Work Phone: 09-03-2021 09:55-0500 Body weight 93.71 kg Unknown Unknown [facility] [facility] DO Work Phone: 09-03-2021 09:55-0500 Diastolic blood pressure 84 mm[Hg] Unknown Unknown -[facility] [facility] DO Work Phone: 09-03-2021 09:55-0500 Heart rate 72 /min Unknown Unknown [facility] DO Work Phone: 09-03-2021 09:55-0500 Systolic blood pressure 122 mm[Hg] Unknown Unknown -[facility] [facility] DO Work Phone: Encounters Encounter Date Encounter Type Care Provider Facility Start: 10-14-2024 End: 10-14-2024 Lab Drop off Lesley Blanco [facility] Start: 10-14-2024 End: 10-14-2024 ambulatory Lesley Blanco Facility[place] Start: 10-14-2024 End: 10-14-2024 Patient encounter procedure Lesley Blanco [facility] Start: 10-13-2024 End: 10-13-2024 Clinisync Result Encounter Brain Esamus DO Work Phone: [facility] External Department Unsolicited Start: 10-13-2024 End: 10-13-2024 Clinisync Result Encounter Brain Seamus DO Work Phone: [facility] External Department Unsolicited Start: 10-10-2024 End: 10-10-2024 Bamboo flowsheet Brain Seamus DO Work Phone: [facility] Start: 10-10-2024 End: 10-14-2024 Bamboo flowsheet Brain Seamus DO Work Phone: [facility] Start: 10-10-2024 End: 10-14-2024 Clinisync Result Encounter Brain Seamus DO Work Phone: [facility] External Department Unsolicited Start: 10-10-2024 End: 10-10-2024 flow sheet Brain Seamus DO Work Phone: [facility] Comment on above: Third trimester preg gwen; 36 weeks gestation of ; Excessive growth affecting management of , antepartum, single or unspecified fetus Start: 10-10-2024 End: 10-10-2024 ambulatory BRAIN SEAMUS Not Available Start: 10-05-2024 End: 10-05-2024 flow sheet Mya Stef PA Work Phone: [facility] Comment [...] End: 09-21-2024 Patient encounter procedure Darwin Jones 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 Work Phone: [facility] [place] Work Phone: Start: 09-21-2024 End: 09-21-2024 ambulatory Darwin Jaclyn Robert 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 Work Phone: [facility] Work Phone: Start: 09-19-2024 End: 09-19-2024 Bamboo flowsheet Brain Seamus DO Work Phone: [facility] Start: 09-19-2024 End: 09-19-2024 Bamboo flowsheet Brain Seamus DO Work Phone: [facility] Start: 09-19-2024 End: 09-19-[address] DO Work Phone: [facility] Comment on above: 32 weeks gestation o f ; Third trimester ; Abnormal TSH Start: 09-19-2024 End: 09-19-2024 ambulatory BRAIN CHIANGO Not Available Start: 09-15-2024 End: 09-15-2024 Clinisync Result Encounter Brain Way DO Work Phone: [facility] External Department Unsolicited Start: 09-15-2024 End: 09-15-2024 Clinisync Result Encounter Brain Way DO Work Phone: [facility] External Department Unsolicited Start: 09-14-2024 End: 09-14-2024 Patient encounter procedure Darwin Jones 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 Work Phone: [facility] Work Phone: Start: 09-14-2024 End: 09-14-2024 ambulatory Darwin Jones 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 Work Phone: [facility] Work Phone: Start: 09-11-2024 End: [...] Start: 09-07-2024 Non-patient / Non-visit Darwin corral 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 Work Phone: [facility] Work Phone: Start: 09-06-2024 End: 09-06-2024 Emergency department patient visit Flash Franco [facility] Start: 09-05-2024 ambulatory [facility] Shimon [facility] Facility :[facility] Start: 09-05-2024 End: 09-05-2024 ambulatory [facility] Facility:[facility] Start: 09-05-2024 Emergency department patient visit DO Annaakilah Kenan Richard Facility:[facility] Start: 09-05-2024 End: 09-05-2024 Observation [facility] Start: 08-25-2024 End: 08-25-2024 Clinisync Result Encounter Brain Seamus DO Work Phone: [facility] External [facility] Unsolicited Start: 08-25-2024 End: 08-25-2024 Clinisync Result Encounter Brain Seamus DO Work Phone: [facility] External [facility] Unsolicited Start: 08-25-2024 End: 08-25-2024 ambulatory Darwin Jones 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 Work Phone: [facility] Work Phone: Start: 08-25-2024 End: 08-25-2024 Patient encounter procedure Darwin Jones 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 Work Phone: [facility] Work Phone: Start: 08-23-2024 [...] Not Available Start: 08-02-2024 End: 08-02-2024 ambulatory [facility] Start: 07-31-2024 End: 07-31-2024 Patient encounter procedure Darwin Jones 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 Work Phone: [facility] [place] Work Phone: Start: 07-31-2024 End: 07-31-2024 Orders Only Hayden Reilly MD Work Phone: [facility] Comment on above: History of pericardi tis (Primary Dx); Mild concentric left ventricular hypertrophy (LVH); 25 weeks gestation of Start: 07-27-2024 End: 07-27-2024 ambulatory NO PCP NO PCP [facility] Start: 07-11-2024 End: 07-11-2024 flow sheet Brain Seamus DO Work Phone: [facility] Comment on above: 22 weeks gestation o f ; Second trimester ; Nausea and vomiting during ; Diabetes mellitus screening Start: 06-28-2024 End: 06-28-2024 Patient encounter procedure Darwin Jones 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 Work Phone: [facility] [place] Work Phone: Start: 06-28-2024 End: 06-28-2024 ambulatory Darwin Jones 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 Work Phone: [facility] Work Phone: Start: 2024 End: 2024 Office consultation new/estab patient 60 min Hayden Reilly MD Work Phone: [facility] [place] Comment on above: 20 weeks gestation o f (Primary Dx); Tiffani's disease; 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; Hx of preeclampsia, prior , currently ; Elevated BP without diagnosis of hypertension; History of pericarditis; with history of section, antepartum; History of macrosomia in in prior , currently ; Obesity affecting , antepartum, unspecified obesity type; Depression affecting Start: 2024 End: 2024 ambulatory [facility] Start: 06-22-2024 End: 06-22-2024 Patient encounter procedure Darwinkenan Jonestodd 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 Work Phone: [facility] [place] Work Phone: Start: 06-22-2024 End: 06-22-2024 ambulatory Darwin Jaclyn Jones 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 Work Phone: [facility] Work Phone: Start: 06-21-2024 End: 06-21-2024 Chart abstracting Hayden Reilly MD Work Phone: [facility] Start: 06-12-2024 End: 06-12-2024 Bamboo flowsheet [...] Patient encounter procedure SHIRLEY Jones Work Phone: [facility] [place] Work Phone: Start: 05-24-2024 End: 05-24-2024 ambulatory SHIRLEY Jones Work Phone: [facility] Work Phone: Start: 05-11-2024 End: 05-11-2024 ambulatory SHIRLEY Joneserholly Work Phone: [facility] Work Phone: Start: 05-11-2024 End: 05-11-2024 Encounter for general adult medical examination without abnormal findings SHIRLEY Jones Work Phone: [facility] Start: 05-11-2024 End: 05-11-2024 Patient encounter procedure SHIRLEY Jones Work Phone: [facility] Work Phone: Start: 05-10-2024 End: [...] 04-06-2024 Departed Referred SHIRLEY Jones Work Phone: [facility] Start: 04-06-2024 End: 04-06-2024 ambulatory SHIRLEY Jones Work Phone: [facility] Work Phone: Start: 03-21-2024 End: 03-21-[address] Not Available Start: 03-18-2024 End: 03-18-2024 Emergency department patient visit [place] [facility] Start: 02-24-2024 End: 02-24-2024 Patient encounter procedure 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 Darwin Roberterwood Work Phone: [facility] [place] Work Phone: Start: 02-24-2024 End: 02-24-2024 ambulatory 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 Darwin Anaya Easterwood Work Phone: [facility] Work Phone: Start: 01-25-2024 End: 01-25-2024 ambulatory 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 Darwin Anaya Roberterwood Work Phone: [facility] Work Phone: Start: 01-25-2024 End: 01-25-2024 Patient encounter procedure 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Akilah Orosco Roberterwood Work Phone: [facility] [place] Work Phone: Start: 01-24-2024 End: 01-24-2024 Patient encounter procedure 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 Darwin Roberterwood Work Phone: [facility] [place] Work Phone: Start: 01-24-2024 End: 01-24-2024 ambulatory 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 Darwin Anaya Easterwood Work Phone: [facility] Work Phone: Start: 12-27-2023 End: 12-27-2023 Patient encounter procedure 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 Darwin Roberterwood Work Phone: [facility] [place] Work Phone: Start: 12-27-2023 End: 12-27-2023 ambulatory 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Akilah Jones Work Phone: [facility] Work Phone: Start: 12-24-2023 End: 12-24-2023 ambulatory SHIRLEY Jonesermacy Work Phone: [facility] Work Phone: Start: 12-24-2023 End: 12-24-2023 Patient encounter procedure SHIRLEY Jones [facility] Phone[facility] Work Phone: Start: 11-30-2023 End: 11-30-2023 Patient encounter procedure SHIRLEY Jones Work Phone: [facility] [place] Work Phone: Start: 11-30-2023 End: 11-30-2023 ambulatory SHIRLEY Jones Work Phone: [facility] Work Phone: Start: 11-25-2023 End: 11-25-2023 ambulatory SHIRLEY Jones Work Phone: [facility] Work Phone: Start: 11-25-2023 End: 11-25-2023 Patient encounter procedure SHIRLEY Jones Work Phone: [facility] Work Phone: Start: 11-18-2023 End: 11-19-2023 ambulatory RUBY WHITTINGTON Facility: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); Class 2 obesity; Irregular menstruation, unspecified; Female infertility; Calculus of kidney Start: 11-01-2023 End: 11-01-2023 Patient encounter procedure 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 Darwin Jonesermacy Work Phone: [facility] [place] Work Phone: Start: 11-01-2023 End: 11-01-2023 ambulatory 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 Darwin Jones Work Phone: [facility] Work Phone: Start: 10-20-2023 End: 10-20-2023 Patient encounter procedure 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 Darwin Jonesermacy Work Phone: [facility] Work Phone: Start: 10-01-2023 End: 10-01-2023 ambulatory 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 Darwin Jonesermacy Work Phone: [facility] Work Phone: Start: 10-01-2023 End: 10-01-2023 Patient encounter procedure 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 Darwin Jonesermacy Work Phone: [facility] [place] Work Phone: Start: 09-29-2023 End: 09-29-2023 ambulatory Tyrone Rock Facility:[facility] Start: 09-29-2023 End: 09-29-2023 Patient encounter procedure Tyrone Rock [facility] Start: 09-21-2023 End: 09-21-2023 ambulatory Darwin Jonesermacy Other [employer] Other Start: 09-21-2023 Office outpatient vi sit 15 minutes Darwinkenan Jones [facility] Start: 08-30-2023 Patient encounter procedure 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 Darwin Joneserwood Work Phone: [facility]- Start: 08-25-2023 End: 08-25-2023 ambulatory Darwin Jonesermacy Other [employer] Other Start: 08-25-2023 Follow-up encounter Darwin Jones [facility] Start: 08-25-2023 End: 08-25-2023 Patient encounter procedure 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 Darwin Jones Work Phone: [facility] Work Phone: Start: 07-23-2023 End: 07-23-2023 Patient encounter procedure 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 Darwin Jones Work Phone: [facility] Work Phone: Start: 07-16-2023 Telephone encounter Ruby sneed MD Work Phone: Endocrinology Comment on above: Appointment Start: 06-23-2023 End: 06-23-2023 ambulatory Darwin Robert Other [employer] Other Start: 06-23-2023 Office outpatient vi sit 15 minutes Darwinkenan Jones [facility] Start: 06-08-2023 End: 06-08-2023 ambulatory FRANCY GAN Facility:[facility] Start: 06-08-2023 End: 06-08-2023 Patient encounter procedure Francy Gan PA-C Work Phone: Otolaryngology Comment on above: Dysphagia, unspecifi ed type (Primary Dx); LPRD (laryngopharyngeal reflux disease) Start: 05-26-2023 End: 05-26-2023 ambulatory Darwinkenan Jones Other [employer] Other Start: 05-26-2023 Office outpatient vi sit 25 minutes Darwinkenan Jones [facility] Start: 05-06-2023 End: 05-06-2023 ambulatory 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 Darwin Jones Work Phone: [facility] Work Phone: Start: 05-06-2023 End: 05-06-2023 Patient encounter procedure 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 Darwin Jones Work Phone: [facility] [place] Work Phone: Start: 04-28-2023 End: 04-28-2023 ambulatory Darwin Jones Other [employer] Other Start: 04-28-2023 Office outpatient vi sit [facility] Start: 04-16-2023 End: 04-16-2023 ambulatory Darwin Jones Other [employer] Other Start: 04-16-2023 Encounter for genera l adult medical examination without abnormal findings [facility] Start: 04-16-2023 Periodic preventive med est patient 18-39 yrs [facility] Start: 04-08-2023 End: 04-08-2023 ambulatory 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 Darwin Jones Work Phone: [facility] Work Phone: Start: 04-08-2023 End: 04-08-2023 Departed Referred SHIRLEY Jones Work Phone: [facility]-Employee Benefit Screening Start: 03-22-2023 End: 03-22-2023 Emergency department patient visit Gabriel Curtis [facility] Start: 03-22-2023 End: 03-22-2023 Emergency department patient visit 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 Darwin Jones Work Phone: [facility]Emer[facility] Work Phone: Start: 02-28-2023 End: 02-28-2023 Departed Referred 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 Darwin Jones Work Phone: [facility]Employee Benefit Screening Start: 02-28-2023 End: 02-28-2023 ambulatory 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 Darwin Joneserwood Work Phone: [facility] Work Phone: Start: 02-28-2023 End: 02-28-2023 Patient encounter procedure 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 Darwin Joneserwood Work Phone: [facility] [address] Work Phone: Start: 12-10-2022 End: 12-10-2022 ambulatory 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 Darwin Joneserwood Work Phone: [facility] Work Phone: Start: 12-10-2022 End: 12-10-2022 Patient encounter procedure 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 Darwin Joneserwood Work Phone: [facility] [place] Work Phone: Start: 12-09-2022 End: 12-09-[address] NONE LISTED REQUEST Facility: Start: 12-08-2022 End: 12-08-2022 ambulatory Ofelia Hester Other [employer] Other Start: 12-08-2022 Encounter by ruben limon [facility] Start: 10-22-2022 End: 10-22-2022 ambulatory Lilly Ti Other [employer] Other Start: 10-22-2022 Telephone encounter Lilly Luke [facility] Start: 10-16-2022 End: 10-16-2022 ambulatory 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 Darwin Joneserwood Work Phone: [facility] Work Phone: Start: 10-16-2022 End: 10-16-2022 Patient encounter procedure 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 Darwin Joneserwood Work Phone: [facility] [place] Work Phone: Start: 10-15-2022 End: 10-15-2022 ambulatory Ofelia Missler Other [employer] Other Start: 10-15-2022 Telephone encounter [facility] Start: 10-05-2022 Registered Recurring SHIRLEY Jones Work Phone: [facility] Work Phone: Start: 10-05-2022 ([facility] Weight Management f/u [facility] Start: 10-05-2022 End: 10-05-2022 ambulatory Ofelia ler Other [employer] Other Start: 09-28-2022 ambulatory Ruby Whittington MD Work Phone: Endocrinology Comment on above: Synthroid Start: 09-02-2022 ([facility] Weight Management f/u [facility] Start: 09-02-2022 End: 09-02-2022 ambulatory Ofelia Missler Other [employer] Other Start: 08-25-2022 ([facility] WMNI) WMN Init ial Provider Lilly Luke [facility] Start: 08-25-2022 End: 08-25-2022 ambulatory Lilly Fitt Other [employer] Other Start: 07-31-2022 ([facility]) Weight Management f/u [facility] Start: 07-31-2022 End: 07-31-2022 ambulatory Ofelia Missler Other [employer] Other Start: 07-20-2022 End: 07-20-2022 ambulatory Lilly Fitt Other [employer] Other Start: 07-20-2022 [facility]phone encounter [facility] Start: 07-14-2022 End: 07-14-2022 Patient encounter procedure Ruby Whittington MD Work Phone: Endocrinology Comment on above: 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 Start: 05-27-2022 End: 05-27-2022 ambulatory Lilly Luke Other [employer] Other Start: 05-27-2022 IBT FOR OBESITY GROU P 2-10 30M Lillyakilah Luke [facility] Start: 05-25-2022 End: 05-25-2022 ambulatory Darwin Jones Other [employer] Other Start: 05-25-2022 Telephone encounter Geoffrey murphy MD Work Phone: Endocrinology Comment on above: Appointment (LVM for patient that appt on 05/[address] George has been rescheduled to 07/08 at [facility] with Dr. Robertson. sending mail reminder as well. ) Start: 05-19-2022 End: 05-19-2022 ambulatory Ofelia Hester Other [employer] Other Start: 05-19-2022 Telephone encounter Ofelia Purvis [facility] Start: 05-18-2022 End: 05-18-2022 ambulatory Ofelia Hester Other [employer] Other Start: 05-18-2022 Nutrition therapy Ofelia Hester [facility] Start: 04-21-2022 End: 04-21-2022 ambulatory Darwin Easterwood Other [employer] Other Start: 04-21-2022 Telephone encounter Darwin Easterwood [facility] Start: 04-17-2022 End: 04-17-2022 ambulatory Darwin Easterwood Other [employer] Other Start: 04-17-2022 Office outpatient vi sit 25 minutes Darwin Easterwood [facility] Start: 04-15-2022 End: 04-15-2022 ambulatory Darwin Easterwood Other [employer] Other Start: 04-15-2022 Telephone encounter Darwin Easterwood [facility] Start: 04-14-2022 End: 04-14-2022 Patient encounter procedure PHYSICIAN [facility] [place] Start: 04-10-2022 End: 04-10-2022 ambulatory Lilly Fitt Other [employer] Other Start: 04-10-2022 Telephone encounter Lilly Fitt [facility] Start: 04-06-2022 End: 04-06-2022 Patient encounter procedure PHYSICIAN NO [facility] [place] Start: 02-24-2022 End: 02-24-2022 ambulatory Darwin Easterwood Other [employer] Other Start: 02-24-2022 Telephone encounter Darwin Larawood [facility] Start: 02-18-2022 End: 02-18-2022 Emergency department patient visit Fazal Corrales [facility] Start: 02-18-2022 End: 02-18-2022 ambulatory Darwinkenan Jones Other [employer] Other Start: 02-18-2022 Office outpatient vi sit 25 minutes Darwin Janewood [facility] Start: 02-18-2022 [facility] Start: 02-13-2022 End: 02-13-2022 Patient encounter procedure PHYSICIAN [facility] [place] Start: 02-11-2022 End: 02-11-2022 ambulatory Darwin Jones Other [employer] Other Start: 02-11-2022 Office outpatient ne w 45 minutes Darwin Larawood [facility] Start: 02-10-2022 End: 02-10-2022 Departed Referred PHYSICIAN [facility] Benefit Screening Start: 09-04-2021 Chart Update Unknown Unknown [facility] 250 DO Work Phone: Start: 09-03-2021 Office outpatient ne w 45 minutes Unknown Unknown [facility] 600 DO Work Phone: Procedures Date Procedure Procedure Detail Performing Clinician Start: 10-13-2024 US OB GROWTH Brain Fazi o DO Work Phone: Start: 10-10-2024 Urnls dip stick/tabl et rgnt non-auto w/o micrscp Brain Seamus DO Work Phone: Start: 10-10-2024 ALL MISCELLANEOUS TEST Brain Seamus DO Work Phone: Start: 10-05-2024 [...] Phone: Start: 06-21-2024 H/O: section History of Hayden Reilly MD Work Phone: Start: 06-12-2024 Urnls dip stick/tabl et rgnt non-auto w/o micrscp Brain Chiango DO Work Phone: Start: 05-10-2024 Urnls dip stick/tabl et rgnt non-auto w/o micrscp Brain Seamus DO Work Phone: Start: 04-20-2024 URETHRITIS/DISCHARGE PLUS VAGINITIS (HTRX) Brain Chiango DO Work Phone: Start: 04-20-2024 Urnls dip stick/tabl et rgnt non-auto w/o micrscp Brain Chiango DO Work Phone: Start: 04-20-2024 IGP,APTIMA HPV,AGE GDLN Brain Way DO Work Phone: Start: 04-20-2024 Microscopic observat ion [Identifier] in Cervix by Cyto stain Hayden [...] micrscp Brain Chiango DO Work Phone: Start: 02-13-2022 US scan of thyroid PHYS ICIAN NO FAMILY section Unknown Unk nown section Fazal Whiten er NEGATED: Highlighted row has not occurred! Total colonoscopy Unknown Unknown Plan of Treatment Date Care Activity Detail Author Start: 04-20-2027 Screening for malignant neoplasm of cervix Pap Smear [facility] Start: 03-23-2026 DTaP,Tdap and Td Vaccines (7 - Td or Tdap) DTaP,Tdap and Td Vaccines (7 - Td or Tdap) [facility] Start: 03-23-2026 Urine microalbumin profile [facility] Start: 2025 Tobacco Screening Tobacco Screening [facility] Start: 10-18-2024 End: 10-18-2024 Patient encounter procedure 10/18/2024 9:50 AM EST Routine [facility] [address] [place] [id number] Mya Finch PA [address] [address] [facility] Start: 10-10-2024 End: 10-10-2025 CULTURE, GROUP B STREP WITH SUSCEPTIBLITY CULTURE, GROUP B STREP WITH SUSCEPTIBLITY Lab Routine Third trimester Expected: 10/10/2024, Expires: 10/10/2025 [facility] Work Phone: Comment on above: [...] EST Routine [facility] [address] [place] [phone] Mya Finch PA [address] [facility] [address] [address] [facility] Start: 09-19-2024 End: 09-19-2024 [...] 08/31/2024 (Approximate), Expi res: 07/31/2025 Start: 08-25-2024 [facility] Start: 08-23-2024 End: 08-23-2024 Patient encounter procedure 08/23/2024 11:00 AM EST Routine [facility] [address] [place] [phone] Brain [address] DO [address] [facility] [address] [place] [place] [address] Arrived [facility] Comment on above: Arrived Start: 08-02-2024 End: 08-02-2024 Telemedicine consultation with patient 08/02/2024 9:00 AM EST Telemedicine [facility] [place] [phone] Darcy Enriquez MD [address] [place] [address] [facility] Start: 07-27-2024 End: 07-27-2024 Patient encounter procedure 07/27/2024 11:00 AM EST Appointment [facility] [place] [phone] [facility] [place] Start: 07-21-2024 End: 07-21-2024 Patient encounter procedure 07/21/2024 10:00 AM EST Appointment [facility] [address] [place] [address] [facility] Start: 07-11-2024 End: 07-11-2025 [...] mellitus screening Expected: 07/11/2024 (Approximate), Expires: 07/11/2025 [facility] Comment on above: Expected: 07/11/2024 (Approximate), Expi res: 07/11/2025 Start: 07-11-2024 End: 07-11-2024 Patient encounter procedure 07/11/2024 10:10 AM EST Routine [facility] [address] [place] [phone] [address], [address] [facility] [address] [place] [place] [address] [facility] Start: 06-28-2024 [facility] Start: 2024 End: 2025 Echo complete W/O contrast Echo complete W/O contrast Echocardiography Routine 20 weeks gestation of History of pericarditis Expected: 2024, Expires: 2025 [facility] Work Phone: Comment on above: Expected: 2024, Expires: Start: 2024 End: 2024 Patient encounter procedure [facility] [place] Start: 06-12-2024 End: 10-13-2024 Alpha fetoprotein, maternal [...] AM EDT Routine [facility] [address] [place] [address] [address], DO [address] [place] [address] Arrived [facility] Comment on above: Arrived Start: 06-07-2024 End: 06-07-2024 Patient encounter procedure 06/07/2024 10:50 AM EDT Routine [facility] [address] [place] [phone] [address], DO [address] [place] [address] [facility] Start: 05-10-2024 End: 05-10-2024 Patient encounter procedure [facility] Comment on above: Arrived Start: 04-20-2024 End: 04-20-2024 Patient encounter procedure [facility] Comment on above: Arrived Start: 04-16-2024 COVID-19 Vaccine ( season) COVID-19 Vaccine ( season) [facility] Start: 04-16-2024 Influenza vaccination [facility] [...] 08-16-2023 Behavioral Health Screening Behavioral Health Screening [facility] Start: 05-06-2023 US scan of thyroid US thyroid [facility] Start: 04-16-2023 Covid-19 Vaccine ( season) Covid-19 Vaccine ( season) [facility] Start: 04-16-2023 Influenza vaccination Influenza Vaccine (#1) [facility] Start: 04-08-2023 [facility] Start: 08-16-2022 DEPRESSION ASSESSMENT DEPRESSION ASSESSMENT [facility] Start: 04-16-2022 Influenza vaccination INFLUENZA (#1) [facility] Start: 08-16-2021 DEPRESSION ASSESSMENT DEPRESSION ASSESSMENT [facility] Start: 01-10-2021 COVID-19 VACCINE (3 - Booster) COVID-19 VACCINE (3 - Booster) [facility] Start: 2017 PAP TESTING PAP TESTING [facility] Start: 2017 Screening for malignant neoplasm of cervix [facility] Start: 2015 DTaP,Tdap and Td Vaccines (1 - Tdap) DTaP,Tdap and Td Vaccines (1 - Tdap) [facility] Start: 2015 Urine microalbumin profile DTAP,TDAP,TD (1 - Tdap) [facility] Start: 2014 Adult BMI Screening Adult BMI Screening [facility] Start: 2014 ANNUAL PCP TEAM CHRONIC DISEASE VISIT ANNUAL PCP TEAM CHRONIC DISEASE VISIT [facility] Start: 2014 HEPATITIS C SCREENING HEPATITIS C SCREENING [facility] Start: 2014 Hepatitis C screening Hepatitis C Screening [facility] Start: 2014 HIV SCREENING HIV SCREENING [facility] Start: 2014 HIV screening HIV Screening [facility] Start: 2010 PEDS TO ADULT TRANSITION ANNUAL ASSESSMENT PEDS TO ADULT TRANSITION ANNUAL ASSESSMENT [facility] Start: 2008 Depression Screening Depression Screening [facility] Start: 2008 PEDS TO ADULT TRANSITION INITIAL DISCUSSION PEDS TO ADULT TRANSITION INITIAL DISCUSSION [facility] Start: 2008 Tobacco Screening Tobacco Screening [facility] Start: 2007 HPV VACCINE (1 - 2-dose series) HPV VACCINE (1 - 2-dose series) [facility] Start: 2005 HPV Vaccine (1 - 2-dose series) HPV Vaccine (1 - 2-dose series) [facility] Start: 1996 COVID-19 VACCINE (#1) COVID-19 VACCINE (#1) [facility] Start: 1996 HEPATITIS B (1 of 3 - 3-dose series) HEPATITIS B (1 of 3 - 3-dose series) [facility] Bacteria identified in Urine by Culture Urine culture Microbiology Routine Missed menses Ordered: 04/07/2024 [facility] Comment on above: Ordered: 04/07/2024 CBC W Auto Differential panel - Blood CBC and differential Lab Routine Missed menses Ordered: 04/07/2024 [facility] Comment on above: Ordered: 04/07/2024 CHLAMYDIA TRACHOMATI S (GENITO/STI) CHLAMYDIA TRACHOMATIS (GENITO/STI) Lab Routine First trimester Screen for STD (sexually transmitted disease) Vaginal discharge Ordered: 04/20/2024 [facility] Comment on above: Ordered: 04/20/2024 Cytology Cervical or vaginal smear or scraping study Pap Smear Pathology and Cytology Routine Well woman exam with routine gynecological exam Ordered: 04/20/2024 [facility] Work Phone: Comment on above: Ordered: 04/20/2024 Hemoglobin A1c/Hemoglobin.total in Blood Hemoglobin A1c Lab Routine Missed menses Ordered: 04/07/2024 [facility] Comment on above: Ordered: 04/07/2024 Hepatitis B virus surface Ag [Presence] in Serum or Plasma by Immunoassay Hepatitis B surface antigen Lab Routine Missed menses Ordered: 04/07/2024 [facility] Comment on above: Ordered: 04/07/2024 Hepatitis C virus Ab [Presence] in Serum or Plasma by Immunoassay Hepatitis C antibody Lab Routine Missed menses Ordered: 04/07/2024 [facility] Comment on above: Ordered: 04/07/2024 HIV-1/HIV-2 antigen/antibody combination immunoassay HIV-1 and HIV-2 antibodies Lab Routine Missed menses Ordered: 04/07/2024 [facility] Comment on above: Ordered: 04/07/2024 Neisseria gonorrhoea e DNA [Presence] in Unspecified specimen by LAUREN with probe detection Neisseria gonorrhea DNA probe, direct Lab Routine First trimester Screen for STD (sexually transmitted disease) Vaginal discharge Ordered: 04/20/2024 [facility] Comment on above: Ordered: 04/20/2024 Patient referral [facility] Work Phone: Progesterone [Mass/volume] in Serum or Plasma [facility] Progesterone [Mass/volume] in Serum or Plasma [facility] Progesterone [Mass/volume] in Serum or Plasma [facility] Progesterone [Mass/volume] in Serum or Plasma [facility] Progesterone [Mass/volume] in Serum or Plasma [facility] Reagin Ab [Presence] in Serum by RPR RPR Lab Routine Missed menses Ordered: 04/07/2024 [facility] Comment on above: Ordered: 04/07/2024 Rubella antibody, IgG Rubella an tibody, IgG Lab Routine Missed menses Ordered: 04/07/2024 [facility] Comment on above: Ordered: 04/07/2024 SURESWAB(R) ADVANCED VAGINITIS PLUS, TMA SURESWAB(R) ADVANCED VAGINITIS PLUS, TMA Pathology and Cytology Routine First trimester Screen for STD (sexually transmitted disease) Vaginal discharge Ordered: 04/20/2024 [facility] Comment on above: Ordered: 04/20/2024 Thyrotropin [Units/volume] in Serum or Plasma TSH Lab Routine Missed menses Ordered: 04/07/2024 [facility] Comment on above: Ordered: 04/07/2024 US Heart Transthoracic [facility] End: 07-07-2024 XR MODIFIED BARIUM SWALLOW W SPEECH THERAPY XR MODIFIED BARIUM SWALLOW W SPEECH THERAPY Radiology Routine Dysphagia, unspecified type 1 Occurrences starting 06/08/2023 until 07/07/2024 [facility] Work Phone: Comment on above: 1 Occurrences starting 06/08/2023 until 07/07/2024 [facility] Work Phone: [facility] Immunizations Immunization Date Immunization Notes Care Provider Fa cility 05-21-2023 influenza virus vaccine, unspecified formulation Tyrone Rock [facility] 05-21-2023 influenza, injectabl e, 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, 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 Darwin Easterwood Work Phone: [facility] 05-21-2023 influenza, injectabl e, 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, contains 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 Darwin Easterwood Other [employer] Other 06-15-2022 influenza, injectabl e, 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, 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 Darwin Easterwood Work Phone: [facility] 06-15-2022 influenza, injectabl e, 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, contains 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 Darwin Easterwood Other [facility] Work Phone: 06-15-2022 influenza virus vaccine, unspecified formulation Francy Gan PA-C Work Phone: [facility] 06-15-2021 influenza nasal, unspecified formulation Ruby Whittington MD Work Phone: [facility] Work Phone: 06-15-2021 influenza virus vaccine, unspecified formulation Tyrone Rock [facility] 06-15-2021 influenza, injectabl e, 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, 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 Darwin Easterwood Work Phone: [facility] 06-15-2021 influenza, injectabl e, 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, contains 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 Darwin Janemacy Other [facility] Work Phone: 05-15-2021 influenza nasal, unspecified formulation Ruby Whittington MD Work Phone: [facility] Work Phone: 05-15-2021 influenza virus vaccine, unspecified formulation Tyrone Rock [facility] 05-15-2021 influenza, high dose seasonal, 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-free Unknown Unknown [facility] Work Phone: 11-15-2020 Pfizer-BioNTech COVID-19 Vacc 30 MCG/0.3ML Intramuscular Suspension Unknown Unknown [facility] 11-12-2020 COVID-19 vaccine, unknown product (NON-US) Ruby Whittington MD Work Phone: [facility] Work Phone: 10-24-2020 Pfizer-BioNTech COVID-19 Vacc 30 MCG/0.3ML Intramuscular Suspension Unknown Unknown [facility] 03-23-2016 tetanus toxoid, reduced diphtheria toxoid, and acellular pertussis vaccine, adsorbed Unknown Unknown [facility] Work Phone: 03-23-2016 varicella virus vaccine Unknown Unknown [facility] Work Phone: 03-01-2002 diphtheria, tetanus toxoids and acellular pertussis vaccine, unspecified formulation Unknown Unknown [facility] Work Phone: 03-01-2002 DTaP, unspecified formulation Tyrone Rock [facility] 03-01-2002 measles, mumps and rubella virus vaccine Unknown Unknown [facility] Work Phone: 03-01-2002 poliovirus vaccine, inactivated Unknown Unknown [facility] Work Phone: 03-01-2002 poliovirus vaccine, unspecified formulation Tyrone Rock [facility] 04-20-2001 hepatitis B vaccine, pediatric or pediatric/adolescent dosage Unknown Unknown [facility] Work Phone: 01-03-1998 diphtheria, tetanus toxoids and acellular pertussis vaccine, unspecified formulation Unknown Unknown [facility] Work Phone: 01-03-1998 DTaP, unspecified formulation Tyrone Rock [facility] 09-18-1997 measles, mumps and rubella virus vaccine Unknown Unknown [facility] Work Phone: 09-18-1997 varicella virus vaccine Unknown Unknown [facility] Work Phone: 03-30-1997 hepatitis B vaccine, pediatric or pediatric/adolescent dosage Unknown Unknown [facility] Work Phone: 1996 diphtheria, tetanus toxoids and acellular pertussis vaccine, unspecified formulation Unknown Unknown [facility] Work Phone: 1996 DTaP, unspecified formulation Tyrone Rock [facility] 1996 trivalent poliovirus vaccine, live, oral Unknown Unknown [facility] Work Phone: 1996 diphtheria, tetanus toxoids and acellular pertussis vaccine, unspecified formulation Unknown [facility] Work Phone: 1996 DTaP, unspecified formulation Tyrone Rock [facility] 1996 haemophilus influenz ae type b vaccine, conjugate unspecified formulation Unknown Unknown [facility] Work Phone: 1996 Hib, unspecified formulation Tyrone Polancopsey [facility] 1996 trivalent poliovirus vaccine, live, oral Unknown Unknown [facility] Work Phone: 1996 diphtheria, tetanus toxoids and acellular pertussis vaccine, unspecified formulation Unknown Unknown [facility] Work Phone: 1996 DTaP, unspecified formulation Tyrone Rock [facility] 1996 diphtheria, tetanus toxoids and acellular pertussis vaccine, unspecified formulation Unknown Unknown [facility] Work Phone: 1996 DTaP, unspecified formulation Tyrone Rock [facility] 1996 haemophilus influenz ae type b vaccine, conjugate unspecified formulation Unknown Unknown [facility] Work Phone: 1996 Hib, unspecified formulation Tyrone Rock [facility] 1996 measles, mumps and rubella virus vaccine Unknown Unknown [facility] Work Phone: 1996 varicella virus vaccine Unknown Unknown [facility] Work Phone: 1996 diphtheria, tetanus toxoids and acellular pertussis vaccine, unspecified formulation Unknown Unknown [facility] Work Phone: 1996 DTaP, unspecified formulation Tryone Rock [facility] 1996 haemophilus influenz ae type b vaccine, conjugate unspecified formulation Unknown Unknown [facility] Work Phone: 1996 hepatitis B vaccine, pediatric or pediatric/adolescent dosage Unknown Unknown [facility] Work Phone: 1996 Hib, unspecified formulation Tyrone Rock [facility] 1996 trivalent poliovirus vaccine, live, oral Unknown Unknown [facility] Work Phone: 1996 hepatitis B vaccine, pediatric or pediatric/adolescent dosage Unknown Unknown [facility] Work Phone: Payers Date Payer Category Payer Self-pay [id number] 2023 Self-pay [id number] 2022 Private Health Insurance [id number] 2021 Unknown 2019 Commercial [employer] - PPO [id number] 1996 Unknown [id number] 2.16.84 0.1.467643.3.579.2.593 1996 Unknown [id number] 2.16.8 40.1.864445.3.579.2.727 1996 Unknown [id number] 2.16.8 40.1.918878.3.579.2.727 1996 Unknown [id number] 2.16.8 40.1.333534.3.579.2.727 1996 Unknown [id number] 2.16.840.1.552977.3.579.2.1286 1996 Unknown [id number] 2.16.840.1.574914.3.579.2.1286 1996 Unknown [id number] 2.16.840.1.271154.3.579.2.1286 1996 Unknown [id number] 2.16.840.1.821206.3.579.2.1286 1996 Unknown [id number] 2.16.8 40.1.120601.3.579.2.727 1996 Unknown [id number] 2.16.8 40.1.955987.3.579.2.727 1996 Unknown [id number] 2.16.8 40.1.408233.3.579.2.727 1996 Unknown [id number] 2.16.8 40.1.837390.3.579.2.727 1996 Unknown [id number] 2.16.8 40.1.323927.3.579.2. 1996 Unknown [id number] 2.16.8 40.1.919748.3.579.2.72 1996 Unknown [id number] 2.16.8 40.1.764230.3.579.2.72 1996 Unknown [id number] 2.16.84 0.1.262096.3.579.2.1258 1996 Unknown [id number] 2.16.84 0.1.616543.3.579.2.1258 1996 Unknown [id number] 2.16.84 0.1.249470.3.579.2.1258 1996 Unknown [id number] 2.16.84 0.1.708851.3.579.2.1258 1996 Unknown [id number] 2.16.84 0.1.478487.3.579.2.1258 1996 Unknown [id number] 2.16.84 0.1.946257.3.579.2.9 1996 Unknown [id number] 2.16.84 0.1.609130.3.579.2.1258 1996 Unknown [id number] 2.16.84 0.1.476289.3.579.2.1258 1996 Unknown [id number] 2.16.84 0.1.609528.3.579.2.1258 1996 Unknown [id number] 2.16.84 0.1.614384.3.579.2.1258 1996 Unknown [id number] 2.16.8 40.1.396547.3.579.2.727 1996 Unknown [id number] 2.16.8 40.1.458588.3.579.2.727 1996 Unknown [id number] 2.16.8 40.1.817613.3.579.2.727 1959 Unknown [id number] Unknown [id number] Unknown [id number] 2.16.8 40.1.799462.3.579.2.531 Unknown [id number] 2.16.8 40.1.913990.3.579.2.531 Unknown [id number] 2.16.8 40.1.708953.3.579.2.531 Unknown [id number] 2.16.8 40.1.506976.3.579.2.531 Unknown [id number] 2.16.8 40.1.227191.3.579.2.531 Unknown [id number] 2.16.8 40.1.205817.3.579.2.531 Unknown [id number] 2.16.8 40.1.994870.3.579.2.531 Unknown [id number] 2.16.8 40.1.715812.3.579.2.531 Unknown [id number] 2.16.8 40.1.379644.3.579.2.531 Unknown [id number] 2.16.8 40.1.919525.3.579.2.531 Unknown [id number] 2.16.8 40.1.136703.3.579.2.531 Unknown [id number] 2.16.8 40.1.761547.3.579.2.531 Unknown [id number] 2.16.8 40.1.377574.3.579.2.531 Social History Date Type Detail Facility Start: 07-14-2022 End: 03-21-2024 No alcohol use No alcohol use -[facility] [address] DO Work Phone: Start: 12-29-2020 End: 10-14-2024 Tobacco smoking status NHIS Never smoked tobacco (finding) [facility] Start: 1995 Sex Assigned At Female [facility] Start: 07-14-2022 End: 03-21-2024 Sex Assigned At [facility] [employer] Other Tobacco smoking status Never [facility] Tobacco smoking status ORIS Tobacco smoking consumption unknown [facility] Start: 1996 Sex Assigned At Not on file [facility] Start: 04-17-2022 End: 07-14-2022 Exposure to SARS-CoV-2 (event) Not sure [facility] Start: 07-14-2022 End: 2024 Tobacco use and exposure Smokeless tobacco non-user [facility] Start: 07-14-2022 End: 10-05-2024 Alcohol intake Lifetime non-drinker (finding) [facility] Start: 07-13-2022 Gender identity Identifies as female gender (finding) [facility] Start: 02-16-2024 [facility] Start: 03-19-2015 End: 06-23-2024 Sex Female (finding) [facility] Tobacco [facility] Comment on above: Denies Tobacco smoking status No Smoking Status Entered [facility] NEGATED: Highlighted rowStart: NINF History of tobacco use Passive smoker [facility] Medical Equipment Procedure Code Equipment Code Equipment Origin al Text Equipment Identifier Dates Pen Renick [id number] X 5 MM Start: 05-18-2022 Goals Date Patient Goal Desired Activity /State Personal health goal Functional Status Date Assessment Result Facility 10-14-2024 Functional Status N/A [facility] 09-06-2024 Functional Status N/A [facility] 09-05-2024 Functional Status N/A [facility] 09-05-2024 Functional Status N/A [facility] 03-18-2024 Functional Status N/A [facility] 09-29-2023 Functional Status N/A [facility] 03-22-2023 Functional Status N/A [facility] 02-18-2022 Functional Status N/A [facility] Clinical Notes 01-14-2022 to 10-14-2024 Aleisha Lois, RASHEED - 10/10/2024 10:50 AM HIPOLITO Robert - 10/05/2024 2:20 PM Pavan Abreu LPN - 09/19/2024 2:00 PM HIPOLITO Robert - 09/07/2024 2:30 PM EST Note Date & Type Note Facility 10-14-2024 Evaluation + Plan note Diagnostic Tests PendingStrep Screen Culture 10/14/24 [facility] 10-14-2024 Hospital Discharg e instructions Patient Education 10/14/2024 09:30:20 Pharyngitis, [id number] Pharyngitis Pharyngitis is a sore throat (pharynx). This is when there is redness, pain, and swelling in your throat. Most of the time, this condition gets better on its own. In some cases, you may need medicine. What are the causes? An infection from a virus. An infection from bacteria. Allergies. What increases the risk? Being 5 24 years old. Being in crowded environments. These include: ?Daycares. ?Schools. ?Dormitories. Living in a place with cold temperatures outside. Having a weakened disease-fighting (immune) system. What are the signs or symptoms? Symptoms may vary depending on the cause. Common symptoms include: Sore throat. Tiredness (fatigue). Low-grade fever. Stuffy nose. Cough. Headache. Other symptoms may include: Glands in the neck (lymph nodes) that are swollen. Skin rashes. Film on the throat or tonsils. This can be caused by an infection from bacteria. Vomiting. Red, itchy eyes. Loss of appetite. Joint pain and muscle aches. Tonsils that are temporarily bigger than usual (enlarged). How is this treated? Many times, treatment is not needed. This condition usually gets better in 3 4 days without treatment. If the infection is caused by a bacteria, you may be need to take antibiotics. Follow these instructions at home: Medicines Take urve-kpi-msohbwp and prescription medicines only as told by your doctor. If you were prescribed an antibiotic medicine, take it as told by your doctor. Do not stop taking the antibiotic even if you start to feel better. Use throat lozenges or sprays to soothe your throat as told by your doctor. Children can get pharyngitis. Do not give your child aspirin. Managing pain To help with pain, try: Sipping warm liquids, such as: ?Broth. ?Herbal tea. ?Warm water. Eating or drinking cold or frozen liquids, such as frozen ice pops. Rinsing your mouth (gargle) with a salt water mixture 3 4 times a day or as needed. ?To make salt water, dissolve 1 tsp (3 6 g) of salt in 1 cup (237 mL) of warm water. ?Do not swallow this mixture. Sucking on hard candy or throat lozenges. Putting a cool-mist humidifier in your bedroom at night to moisten the air. Sitting in the bathroom with the door closed for 5 10 minutes while you run hot water in the shower. General instructions Do not smoke or use any products that contain nicotine or tobacco. If you need help quitting, ask your doctor. Rest as told by your doctor. Drink enough fluid to keep your pee (urine) pale yellow. How is this prevented? Wash your hands often for at least 20 seconds with soap and water. If soap and water are not available, use hand network operations specialist. Do not touch your eyes, nose, or mouth with unwashed hands. Wash hands after touching these areas. Do not share cups or eating utensils. Avoid close contact with people who are sick. Contact a doctor if: You have large, tender lumps in your neck. You have a rash. You cough up green, yellow-brown, or bloody spit. Get help right away if: You have a stiff neck. You drool or cannot swallow liquids. You cannot drink or take medicines without vomiting. You have very bad pain that does not go away with medicine. You have problems breathing, and it is not from a stuffy nose. You have new pain and swelling in your knees, ankles, wrists, or elbows. These symptoms may be an emergency. Get help right away. Call your local emergency services (911 in the [place] Do not wait to see if the symptoms will go away. Do not drive yourself to the hospital. Summary Pharyngitis is a sore throat (pharynx). This is when there is redness, pain, and swelling in your throat. Most of the time, pharyngitis gets better on its own. Sometimes, you may need medicine. If you were prescribed an antibiotic medicine, take it as told by your doctor. Do not stop taking the antibiotic even if you start to feel better. This information is not intended to replace advice given to you by your health care provider. Make sure you discuss any questions you have with your health care provider. Document Revised: 10/29/2021 Document Reviewed: 10/29/2021 [employer] Patient Education 2023 InstaGIS. Follow Up Care 10/14/2024 08:59:06 With:DARWIN JONES CNP Address: [address] [place] [address]- When: Unknown [facility] 10-14-2024 Note Patient Education Infectious Disease Pharyngitis Pharyngitis is a sore throat (pharynx). This is when there is redness, pain, and swelling in your throat. Most of the time, this condition gets better on its own. In some cases, you may need medicine. What are the causes? An infection from a virus. ??? An infection from bacteria. ??? Allergies. What increases the risk? Being 5?24 years old. ??? Being in crowded environments. These include: ? Daycares. ? Schools. ? Dormitories. ??? Living in a place with cold temperatures outside. ??? Having a weakened disease-fighting (immune) system. What are the signs or symptoms? Symptoms may vary depending on the cause. Common symptoms include: ??? Sore throat. ??? Tiredness (fatigue). ??? Low-grade fever. ??? Stuffy nose. ??? Cough. ??? Headache. Other symptoms may include: ??? Glands in the neck (lymph nodes) that are swollen. ??? Skin rashes. ??? Film on the throat or tonsils. This can be caused by an infection from bacteria. ??? Vomiting. ??? Red, itchy eyes. ??? Loss of appetite. ??? Joint pain and muscle aches. ??? Tonsils that are temporarily bigger than usual (enlarged). How is this treated? Many times, treatment is not needed. This condition usually gets better in 3?4 days without treatment. If the infection is caused by a bacteria, you may be need to take antibiotics. Follow these instructions at home: Medicines ??? Take oqga-kgd-mrpdhwb and prescription medicines only as told by your doctor. ??? If you were prescribed an antibiotic medicine, take it as told by your doctor. Do not stop taking the antibiotic even if you start to feel better. ??? Use throat lozenges or sprays to soothe your throat as told by your doctor. ??? Children can get pharyngitis. Do not give your child aspirin. Managing pain To help with pain, try: ??? Sipping warm liquids, such as: ? Broth. ? Herbal tea. ? Warm water. ??? Eating or drinking cold or frozen liquids, such as frozen ice pops. ??? Rinsing your mouth (gargle) with a salt water mixture 3?4 times a day or as needed. ? To make salt water, dissolve ??1 tsp (3?6 g) of salt in 1 cup (237 mL) of warm water. ? Do not swallow this mixture. ??? Sucking on hard candy or throat lozenges. ??? Putting a cool-mist humidifier in your bedroom at night to moisten the air. ??? Sitting in the bathroom with the door closed for 5?10 minutes while you run hot water in the shower. General instructions ??? Do not smoke or use any products that contain nicotine or tobacco. If you need help quitting, ask your doctor. ??? Rest as told by your doctor. ??? Drink enough fluid to keep your pee (urine) pale yellow. How is this prevented? Wash your hands often for at least 20 seconds with soap and water. If soap and water are not available, use hand network operations specialist. ??? Do not touch your eyes, nose, or mouth with unwashed hands. Wash hands after touching these areas. ??? Do not share cups or eating utensils. ??? Avoid close contact with people who are sick. Contact a doctor if: ??? You have large, tender lumps in your neck. ??? You have a rash. ??? You cough up green, yellow-brown, or bloody spit. Get help right away if: ??? You have a stiff neck. ??? You drool or cannot swallow liquids. ??? You cannot drink or take medicines without vomiting. ??? You have very bad pain that does not go away with medicine. ??? You have problems breathing, and it is not from a stuffy nose. ??? You have new pain and swelling in your knees, ankles, wrists, or elbows. These symptoms may be an emergency. Get help right away. Call your local emergency services (911 in the [place] ??? Do not wait to see if the symptoms will go away. ??? Do not drive yourself to the hospital. Summary ??? Pharyngitis is a sore throat (pharynx). This is when there is redness, pain, and swelling in your throat. ??? Most of the time, pharyngitis gets better on its own. Sometimes, you may need medicine. ??? If you were prescribed an antibiotic medicine, take it as told by your doctor. Do not stop taking the antibiotic even if you start to feel better. This information is not intended to replace advice given to you by your health care provider. Make sure you discuss any questions you have with your health care provider. Document Revised: 10/29/2021 Document Reviewed: 10/29/2021 [employer] Patient Education ? 2023 InstaGIS. [facility] 10-10-2024 History of Presen t illness Narrative [...] H/O calculus of kidney during Tiffani's disease (CMS/[facility]) 02/2022 History of Obesity (BMI 30-39.9) [...] nursing note reviewed. Exam conducted with a registered nursing professor present. Vitals: Estimated body mass index is [...] Brain Way DO documented in this encounter [facility] 10-05-2024 History of Presen t [...] H/O calculus of kidney during Tiffani's disease ([facility]) 02/2022 History of Obesity (BMI 30-39.9) Pericarditis HISTORY PAST MEDICAL HISTORY SOCIAL HISTORY Past Medical History: Diagnosis Date Anxiety Blood type, Rh positive H/O calculus of kidney during Tiffani's disease ([facility]) 02/2022 History of Obesity (BMI 30-39.9) [...] of: HIPOLITO Shore documented in this encounter [facility] 09-19-2024 History of Presen [...] H/O calculus of kidney during Tiffani's disease ([facility]/HCC) 02/2022 History of Obesity (BMI 30-39.9) Pericarditis HISTORY PAST MEDICAL HISTORY SOCIAL HISTORY Past Medical History: Diagnosis Date Anxiety Blood type, Rh positive H/O calculus of kidney during Tiffani's disease ([facility]/HCC) 02/2022 History of Obesity (BMI 30-39.9) Pericarditis [...] nursing note reviewed. Exam conducted with a registered nursing professor present. Vitals: Estimated body mass index is [...] Brain Way DO documented in this encounter [facility] 09-07-2024 History of Presen [...] H/O calculus of kidney during Tiffani's disease (CMS/[facility]) 02/2022 History of Obesity (BMI 30-39.9) [...] of: HIPOLITO Shore documented in this encounter [facility] 09-07-2024 Note History and [...] Dr. Way, as scheduled. Rogelio Nath M.D. w[place] Dictated: 09/05/2024 [id number] Transcribed: 09/05/2024 [facility] Comment on above: Result Comment: Elec tronically Signed By: Pham GALLAGHER, Rogelio Robins\.br\Date and Time Signed: 09/07/24 08:38 EST 09-06-2024 Hospital Discharg e instructions Patient Education 09/06/2024 16:15:07 Concussion, Adult, Qvyp-zc-Drwl Concussion, Adult A concussion is a brain [...] if you are dizzy. General instructions Take yuiv-gxy-vyngrqp and prescription medicines only as told by your doctor. Avoid taking strong pain medicines (opioids) after a concussion. Do not drink alcohol until your doctor says you can. Watch your symptoms and tell other people to do the same. Other problems can occur after a concussion. Tell your data network architect, teachers, school nurse, school counselor, swimming coach, or hydraulic strainer operator about your injury and symptoms. Tell them [...] the National Suicide Prevention Lifeline at or 425. This is open 24 hours a day. Text the Crisis Text Line at 585718. This information is not intended to replace advice given to you by your health care provider. Make sure you discuss any questions you have with your health care provider. Document Revised: 12/25/2022 Document Reviewed: 12/25/2022 [employer] Patient Education 2023 InstaGIS. Follow Up Care 09/06/2024 13:58:27 With:[facility]WIN [facility] Address: [address] [place] [address] [place] [address] [phone] Business (1) When:09/09/2024 16:14:40 Comments:Call to schedule a follow-up appointment with your primary care provider. Use Zofran as needed for nausea/vomiting. Return to the ED with any new or worsening symptoms. [facility] 09-06-2024 Note ED Patient Education Note [...] you are dizzy. General instructions ??? Take sidp-lgx-syxhkml and prescription medicines only as told by your doctor. ??? Avoid taking strong pain medicines (opioids) after a concussion. ??? Do not drink alcohol until your doctor says you can. ??? Watch your symptoms and tell other people to do the same. Other problems can occur after a concussion. ??? Tell your data network architect, teachers, school nurse, school counselor, swimming coach, or hydraulic strainer operator about your injury and symptoms. Tell them [...] You have any (more content not included)... [facility] 09-06-2024 Evaluation + Plan note Extrac [...] date 09/06/24 15:25:00 EST, 09/06/24 15:25:00 EST [facility] [id number] NoteDischarge Instructions Given Worsening The following Patient Education Materials have been given to the patient: ~~ [facility] Evaluation + Plan note Extracted from: [...] Diagnostic Tests Pending * Urine Culture 09/05/24 [facility] 01-21-2025 Hospital Discharge instructions Patient Education 09/05/2024 04:35:45 Syncope, Adult, Yatg-rn-Amkj Syncope, Adult Syncope is when you pass [...] you until you feel better. Medicines Take cxhj-enz-tfbrcmg and prescription medicines only as told by [...] provider. Document Revised: 12/11/2021 Document Reviewed: 12/11/2021 [employer] Patient Education 2023 [employer]. 09/05/2024 04:35:45 Nausea and Vomiting, Adult, Dudd-qy-Isnx Nausea and Vomiting, Adult Nausea is feeling [...] fruit juice). ?Low-calorie sports drinks. Eat bland, dbsd-rz-rzhmwn foods in small amounts as you are able, such as: ?Bananas. ?Applesauce. ?Rice. ?Low-fat (lean) meats. ?[place]. ?Crackers. Avoid drinking fluids that have a lot of sugar or caffeine in them. This includes energy drinks, sports drinks, and soda. Avoid alcohol. Avoid spicy or fatty foods. General instructions Take yulr-mdu-yyncaho and prescription medicines only as told by your doctor. Drink enough fluid to keep your pee (urine) pale yellow. Wash your hands often with soap and water for at least 20 seconds. If you cannot use soap and water, use hand network operations specialist. Make sure that everyone in your home [...] your doctor about eating and drinking. Take hkvl-byh-rrhvmkz and prescription medicines only as told by your doctor. Contact your doctor if your symptoms get worse or you have new symptoms. Keep all follow-up visits. This information is not intended to replace advice given to you by your health care provider. Make sure you discuss any questions you have with your health care provider. Document Revised: 02/06/2022 Document Reviewed: 02/06/2022 [employer] Patient Education 2023 InstaGIS. 09/05/2024 04:35:45 Diarrhea, Adult, Drxf-mu-Rhsw Diarrhea, Adult Diarrhea is when you pass [...] regular sports drinks. ?Avoid alcohol. Eat bland, klav-en-gpkoxi foods in small amounts as you are able. These foods include: ?Bananas. ?Applesauce. ?Rice. ?Low-fat (lean) meats. ?[place]ue. ?Crackers. Avoid spicy or fatty foods. Medicines Take fdae-mwg-lmufbuv and prescription medicines only as told by your doctor. If you were prescribed antibiotics, take them as told by your doctor. Do not stop taking them even if you start to feel better. General instructions Wash your hands often using soap and water for 20 seconds. If soap and water are not available, usehand network operations specialist. Others in your home should wash their [...] provider. Document Revised: 01/19/2023 Document Reviewed: 01/19/2023 [employer] Patient Education 2023 [employer]GIS. 09/05/2024 04:35:45 Dehydration, Adult, Shcw-ss-Ljoe Dehydration, Adult Dehydration is a condition in [...] or sea (high in altitude). The thinner, continuous drier helper air causes more fluid loss. Doing exercises [...] of fat or sugar. General instructions Take gwru-etf-adrygut and prescription medicines only as told by [...] provider. Document Revised: 03/01/2023 Document Reviewed: 03/01/2023 [employer] Patient Education 2023 InstaGIS. Follow Up Care 09/05/2024 03:04:39 With:Brain WAY Address: [address] [place] [address]- Business (1) When:09/07/2024 Comments:Call 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supervisor paper products prescriptions at [facility] With:DARWIN LARABRIDGEPORT Address: [address] [place] [address] [place] [address]- [phone] Business (1) When:09/08/2024 Comments:Please follow-up with Dr. Way for further evaluation management. Please return to the ED for any new or worsening symptoms. [facility] [id number] NoteProgress Note-Nurse @0330 OB RN arrived in patient room in [...] about admission for further evaluation on OB unit.[facility]01-21-2025 NoteED Patient Education Note Gastroenterology Nausea [...] ? Low-calorie sports drinks. ??? Eat bland, huej-ze-icypul foods in small amounts as you are able, such as: ? Bananas. ? Applesauce. ? Rice. ? Low-fat (lean) meats. ? [place]. ? Crackers. ??? Avoid drinking fluids that have a lot of sugar or caffeine in them. This includes energy drinks, sports drinks, and soda. ??? Avoid alcohol. ??? Avoid spicy or fatty foods. General instructions ??? Take ozzq-eek-jtttgsn and prescription medicines only as told by your doctor. ??? Drink enough fluid to keep your pee (urine) pale yellow. ??? Wash your hands often with soap and water for at least 20 seconds. If you cannot use soap and water, use hand network operations specialist. ??? Make sure that everyone in your [...] doctor about eating and drinking. ??? Take erup-jqh-ylimhqd and prescription medicines only as told by your doctor. ??? Contact your doctor if your symptoms get worse or you have new symptoms. ??? Keep all follow-up visits. This information is not intended to replace advice given to you by your health care provider. Make sure you discuss any questions you have with your health care provider. Document Revised: 02/06/2022 Document Reviewed: 02/06/2022 [employer] Patient Education ? 2023 [employer]. Infectious Disease Diarrhea, Adult Diarrhea is [...] Take an ORS (ora (more content not included)...[facility] 08-25-2024 Evaluation note* Diagnosis Onset Date Resolution Status Admit Date Class 2 obesity with body ma ss index (BMI) of 37.0 to 37.9 in adult acute August 25 11:56am Tiffani's disease acute Janua 2024 11:56am Hypothyroidism acute August 252024 11:56am Mild left ventricular hypertrophy acute August 25 11:56am Second trimester acute August 25, 2024 11:56am [facility] Work Phone: 1(916) 717-109301-08-2025 History of Present illness Narrative* Aleisha Abreu, BOOKY - 08/23/2024 11:00 AM EST Reason for [...] H/O calculus of kidney during Tiffani's disease (CMS/[facility]) 02/2022 History of Obesity (BMI 30-39.9) [...] nursing note reviewed. Exam conducted with a registered nursing professor present. Vitals: Estimated body mass index is [...] of: Brain Way DO documented [facility] [id number] History of Present illness Narrative* Aleisha Abreu [...] H/O calculus of kidney during Tiffani's disease ([facility]) 02/2022 History of Obesity (BMI 30-39.9) Pericarditis HISTORY PAST MEDICAL HISTORY SOCIAL HISTORY Past Medical History: Diagnosis Date Anxiety Blood type, Rh positive H/O calculus of kidney during Tiffani's disease ([facility]) 02/2022 History of Obesity (BMI 30-39.9) [...] nursing note reviewed. Exam conducted with a registered nursing professor present. Vitals: Estimated body mass index is [...] of: Brain Way DO documented in this encounterP[facility] [id number] History of Present illness Narrative* Laura Herron [...] male Have you been seen here at [facility] in a previous ? No Recent ER visits or hospitalizations? no Bring blood sugar log or meter with you today? (Please bring them with you for every visit at [facility]) n/a Flu vaccine (Jun-October)? Yes [...] Delivery: 11/08/24 who presented for consultation from Dr. Way, Brain Sultana DO regarding Chief Complaint Patient presents with [...] effusion. Also she was then evaluated by soil science professor who told her that she had pericarditis and that resolved with a taking Motrin however she did not had an echocardiogram. Saw Dr. Coronado. 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 Yes NotIn System Ref Prov wl377-zxlq-zjpqw acid ( 19) 29 mg iron- 1 [...] would recommend she establishes care with a low altitude air defense officer for it to be further evaluated 7. [...] Please refer her locally to see a low altitude air defense officer for the incidental finding on the CT [...] Hayden Reilly MD, FACOG (she/hers) Maternal- Medicine [facility] [address] [place] [address] This document was created with [employer] technology. Though I make every effort to review the dictation as it is transcribed, on occasion the spoken word can be misinterpreted by the technology leading to inappropriate words, phrases, or sentences. This note is addressed to the requesting provider as a consultation for clinical guidance. Specificmedical abbreviations are occasionally used and those are generally approved by the [place]?Board of?Obstetrics and?Gynecology?as well as?Lauryn lund abbreviations. The above plan of care was based solely on the diagnoses for which a consultation was requested. ?More frequent testing may be indicated based on her other medical/obstetrical conditions. The management of other or medical conditions is beyond the scope of requested consultation and will c ontinue to be followed by the primary flask maker or primary care provider. Note to patient: [...] opinion of the practitioner. [facility] Diagnostic study [facility] [place] [address] Ultrasound Report Signed Patient: Tawnya Herring MR#: [id number] : 1995 Acct:[id number] Age/Sex: 28 / F ADM Date: 4 Loc: Room: Type: [facility] Attending Dr: Brain Way DO Ordering Provider: [...] Norton Jr., D.O.06/22/2024 4:00 PM Dictation Location: [employer] Tech: Rae De Paz Transcribed By: AGUILAR 06/22/24 1600 Dictated By: Zay Norton Jr, DO 06/22/24 1552 Signed By: 06/22/24 1600 [facility]10-28-2024 History of Present illness Narrative * [...] pericarditis post last . We will send [facility] referral Follow Up: Patient is to return to office in 4 week for routine OB appointment. Documented by HIPOLITO Shore on behalf of: Brain Way DO documented in this encounterPike [facility] HospitalEjzvsddsgl63-65-7426 Evaluation note* Diagnosis Onset Date Resolution Status Admit Date Well adult exam noneactive May 11, 2024 10:46am [facility] Work Phone: 1(475) 612-471209-25-2024 History of Present illness Narrative* Aleisha Abreu [...] H/O calculus of kidney during Tiffani's disease ([facility]) 02/2022 History of Obesity (BMI 30-39.9) Pericarditis HISTORY PAST MEDICAL HISTORY SOCIAL HISTORY Past Medical History: Diagnosis Date Anxiety Blood type, Rh positive H/O calculus of kidney during Tiffani's disease ([facility]) 02/2022 History of Obesity (BMI 30-39.9) [...] nursing note reviewed. Exam conducted with a registered nursing professor present. Vitals: Estimated body mass index is [...] of: Brain Way DO documented in this encounterPike County Memorial [id number] History of Present illness Narrative* Coral Rg [...] H/O calculus of kidney during Tiffani's disease ([facility]) 02/2022 History of Obesity (BMI 30-39.9) Pericarditis HISTORY PAST MEDICAL HISTORY SOCIAL HISTORY Past Medical History: Diagnosis Date Anxiety Blood type, Rh positive H/O calculus of kidney during Tiffani's disease ([facility]) 02/2022 History of Obesity (BMI 30-39.9) [...] nursing note reviewed. Exam conducted with a registered nursing professor present. Vitals: Estimated body mass index is [...] of: Brain Way DO documented in this encounterPike County Memorial HospitalIgbfqllqep57-42-2006 History of Present illness Narrative* Thelma Elizabeth [...] or undercooked meat, and stay away from [facility]. Patient has also been advised to [...] by: Thelma Elizabeth LPN documented in this encounterPike County Memorial [id number] Hospital Discharge instructions Patient Education 03/18/2024 12:15:03 [...] provider. Document Revised: 01/31/2021 Document Reviewed: 01/31/2021 [employer] Patient Education 2022 [employer]. 03/18/2024 12:15:03 Subchorionic Hematoma Subchorionic Hematoma A [...] provider. Document Revised: 04/28/2021 Document Reviewed: 04/28/2021 [employer] Patient Education 2022 [employer]. Follow Up Care 03/18/2024 08:08:01 With:Rogelio Nath Address: [address], [address] [address]- Business (1) When:03/21/2024 11:54:39 With:DARWIN LARABRIDGEPORT Address: [address] [place] [address]- [phone] Business (1) When:Within 3 Day(s) [facility] 08-03-2024 NoteED Patient Education Note Obstetrics [...] provider. Document Revised: 01/31/2021 Document Reviewed: 01/31/2021 [employer] Patient Education ? 2022 [employer] Subchorionic Hematoma A hematoma is a collection of blood outside of the blood vessels. A subchorionic hematoma is a collection of blood between the outer wall of the embryo (chorion) and the inner wall of the uterus. This condi (more content not included)...[facility]04-04-2024 NoteHNO ID: [id number] Author: RUBY WHITTINGTON MD Service: ? Author [...] RTN 1 year. Ruby Whittington MD [facility] History of Present illness Narrative* [...] Whittington MD Endocrinology Staff documented in this encounterAd[facility]04-04-2024 Instructions* Patient Instructions* Odalis Greene - 11/18/2023 7:58 AM EDT Thank you for choosing the [facility] Department of Endocrinology, Diabetes and Metabolism. Did you know that you need to call 48 hours in advance of your scheduled visit, if you are unable to make your appointment? The [facility] [place] thanks you for your commitment, because patients not showing to their appointment results in a lost opportunity for patients to receive world class health care at the [facility]. To Cancel an appointment, please choose one of the following: - Call the Appointment Call Center at [phone] - From [facility], Go to Appointments - Cancel Appts If cancelling, consider your need to reschedule to prevent further delays in your care. To Schedule an appointment, please choose one of the following: - Call the Appointment Call Center at [phone] - From [facility], Go to Appointments - Request an Appt documented in this encounterAdams County [facility] Center02-14-2024 Hospital Discharge instructions Patient Education [...] numbers. This can be done either in [place] (U.[place] or metric measurements. Note that charts and online BMI calculators are available to help you find your BMI quickly and easily without having to do these calculations yourself. To calculate your BMI in [place] ([place] measurements: 1.Measure your weight in pounds [...] Centers for Disease Control and Prevention: www.cdc.gov [place] [employer]: www.heart.org National Heart, Lung, and Blood [place]: www.nhlbi.nih.gov Summary Body mass index (BMI) is a number that is calculated from a person's weight and height. BMI may help estimate how much of a person's weight is composed of fat. BMI can help identify thosewho may be at higher risk for certain medical problems. BMI can be measured using [place]ican measurements or metric measurements. BMI charts are used to identify whether you are underweight, normal weight, overweight, or obese. This information is not intended to replace advice given to you by your health care provider. Make sure you discuss any questions you have with your health care provider. Document Revised: 04/24/2020 Document Reviewed: 03/01/2020 [employer] Patient Education 2022 [employer]. 09/29/2023 11:04:59 Sinus Infection, Adult Sinus Infection, [...] saline washes). ?Medicines that treat allergies (antihistamines). ?Wbvr-ouh-lrmqjwy pain relievers. If caused by bacteria, your [...] at home: Medicines Take, use, or apply bfxj-xep-icmzsnk and prescription medicines only as told by [...] and water are not available, use hand network operations specialist. Do not smoke. Avoid being around people [...] provider. Document Revised: 07/07/2022 Document Reviewed: 07/07/2022 [employer] Patient Education 2022 [employer] Follow Up Care 09/29/2023 09:12:00 With:DARWIN JONES CNP Address: [address] [place] [address] [place] [address]- When: Unknown [facility] 02-06-2024 Evaluation note* Encounter [...] BMI is required on scripts in the [facility]. Sep, Other *Progress note was completed with the assistance of voice recognition software for dictation purposes. Please excuse any grammatical errors that were not corrected during review process. [facility] Other 01-10-2024 Evaluation note* Encounter Date Diagnosis [...] that were not corrected during review process. [employer] Other 12-01-2023 Miscellaneous Notes* Telephone Encounter - Kenan Gomez - 07/16/2023 9:39 AM EST LVM to let patient know their appt has been rescheduled with Dr. Whittington. documented in this encounterAdams County [facility] Medical Center11-08-2023 Evaluation note* Encounter Date Diagnosis [...] comfortable prescribing this medication at this time. [employer] Other 10-24-2023 NoteHNO ID: [id number] Author: Francy Gan PA-C Service: ? Author Type: Physician Airport Ramp Supervisor Type: Progress Notes Filed: 06/08/2023 2:53 [...] will be in touch with results via [employer] HPI: Tawnya is a 27 year old [...] testing/treatment Medical Decision Making Level: 3 - [facility] History of Present illness Narrative* [...] will be in touch with results via [employer] HPI: Tawnya is a 27 year old [...] Level: 3 - Low documented in this encounterAdams County [facility] Medical Center10-24-2023 Instructions* Patient Instructions* Francy Gan PA-C - 06/08/2023 2:16 PM EDT Continue the omeprazole for another 1.5 months documented in this encounterAdams County [facility] Medical Center10-11-2023 Evaluation note* Encounter Date Diagnosis [...] that were not corrected during review process. [employer] Other 09-13-2023 Evaluation note* Encounter Date Diagnosis [...] Discussed short term 8 week course vs. snf management. Discussed pros and cons of taking [...] that were not corrected during review process. [employer] Other 09-01-2023 Evaluation note* Encounter Date Diagnosis [...] SCANNED INTO PATIENT CHART AND FAXED TO [employer]. Apr, Other We did briefly discussed the [...] that were not corrected during review process. [facility] Other 08-08-2023 Hospital Discharge instructions Patient Education 03/22/2023 22:52:44 Urinary Tract Infection, Adult, Odjt-gh-Elzj Urinary Tract Infection, Adult A urinary tract [...] Follow these instructions at home: Medicines Take maaf-llm-nafdxcd and prescription medicines only as told by [...] provider. Document Revised: 03/14/2021 Document Reviewed: 03/14/2021 [employer] Patient Education 2022 [employer]. Follow Up Care 03/22/2023 19:54:03 With:DARWIN LARABRIDGEPORT Address: [address] [place] [id number] [phone] Business (1) When:03/25/2023 Comments:Follow-up with your primary care provider in 3 to 5 days. If symptoms worsen, do not improve, or new symptoms arise please report back to emergency department for further evaluation. [facility]08-07-2023 Evaluation + Plan note Diagnostic Tests Pending * Urine Culture 03/22/23 [facility]03-02-2023 Evaluation note* Encounter Date Diagnosis Assessment Notes Treatment Notes Treatment Clinical Notes Oct, Nausea & vomiting (ICD-10 - R11.2) [facility] Other 02-20-2023 Evaluation note* Encounter Date Diagnosis [...] Encounter for weight management (ICD-10 - Z76.89) [facility] Other 02-13-2023 Miscellaneous Notes* Addendum Note - [...] daily. Ruby Whittington MD documented in this encounterAdams County [facility] Medical Center01-18-2023 Evaluation note* Encounter Date Diagnosis [...] Encounter for weight management (ICD-10 - Z76.89) [facility] Other 01-10-2023 Evaluation note* Encounter Date Diagnosis [...] as inspiration Patient set the following goals: [employer] Other 12-16-2022 Evaluation note* Encounter Date Diagnosis [...] E06.3) She was recently seen by an fisher line at [facility] for elevated TSH. She is currently on adequate supplementation and will follow up with them. Jul, Daytime sleepiness (ICD-10 - R40.0) Continue to work on good sleep hygiene and control factors that she can.This could also improve with additional water intake. Jul, Mild depression (ICD-10 - F32.9) Jul, Encounter for weight management (ICD-10 - Z76.89) [facility] Other 11-29-2022 History of Present illness Narrative* [...] Endocrinology Staff CC: Darwin Jones APRN, CNP. [address] [place] [address] documented in this encounterAdams County Regional Medical Center11-29-2022 Instructions* Patient Instructions* Soo Begum Ma - 07/14/2022 8:46 AM EST Thank you for choosing the [facility] Department of Endocrinology, Diabetes and Metabolism. Did you know that you need to call 48 hours in advance of your scheduled visit, if you are unable to make your appointment? The [facility] [place] thanks you for your commitment, because patients not showing to their appointment results in a lost opportunity for patients to receive world class health care at the [facility]. To Cancel an appointment, please choose one of the following: - Call the Appointment Call Center at [phone] - [facility], Go to Appointments - Cancel Appts If cancelling, consider your need to reschedule to prevent further delays in your care. To Schedule an appointment, please choose one of the following: - Call the Appointment Call Center at [phone] - From [facility], Go to Appointments - Request an Appt documented in this encounterAdams County Regional Medical Center11-02-2022 Evaluation note* Encounter Date Diagnosis [...] samples and titrate her up slowly until [facility] insurance kicks in in August. We [...] will discuss at later date if needed. [facility] Other 10-20-2022 Evaluation note* Encounter Date Diagnosis [...] Pt understood and agreed to tx plan. [facility] Other 10-12-2022 Evaluation note* Encounter Date Diagnosis [...] patient set personal goal using given handout. [facility] Other 10-10-2022 Miscellaneous Notes* Telephone Encounter - Linn Hancock - 05/25/2022 2:35 PM EDT LVM for patient that appt on 05/[address] George has been rescheduled to 07/08 at [facility] with Dr. Robertson. sending mail reminder as well. 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 Her Mallampati is not [...] of a comprehensive approach to obesity management [facility] Other 09-02-2022 Evaluation note* Encounter Date Diagnosis [...] to start the weight management program at [facility] in the coming months.Nothing further needed [...] that were not corrected during review process. [facility] Other 07-07-2022 Hospital Discharge instructions Patient Education [...] Follow these instructions at home: Medicines Take dsds-pic-gnyxgld and prescription medicines only as told by [...] 04/27/2002 Document Revised: 08/05/2018 Document Reviewed: 05/14/2017 [employer] Patient Education 2020 InstaGIS. 02/18/2022 22:49:49 Migraine Headache Migraine Headache A [...] Follow these instructions at home: Medicines Take mbxi-hln-npgrdgw and prescription medicines only as told by your health care provider. Ask your health care provider if the medicine prescribed to you: ?Requires you to avoid driving or using heavy machinery. ?Can cause constipation. You may need to take these actions to prevent or treat constipation: ?Drink enough fluid to keep your urine pale yellow. ?Take hknv-aec-tgculyw or prescription medicines. ?Eat foods that are [...] 08/02/2006 Document Revised: 11/24/2019 Document Reviewed: 09/14/2019 [employer] Patient Education 2020 InstaGIS. Follow Up Care 02/18/2022 20:32:17 With:DARWIN LARABRIDGEPORT Address: [address] [place] [phone] Business (1) When:Within 3 Day(s) [facility]07-06-2022 Evaluation + Plan noteExtracted from: Title:ED [...] voices understanding and is agreeable to plan. [facility]07-06-2022 Evaluation note* Encounter Date Diagnosis Assessment [...] and remind her of lab draw at [facility]. Feb, Thyromegaly (ICD-10 - E01.0) Discussed [...] that were not corrected during review process. [facility] Other 07-01-2022 History general Narrative - Reported* Type Description Date Medical History Anxiety Medical History pericardi tis- Resolved cardiology signed off Medical History Kidney stones during Medical History Tiffani's disease February 2022 Medical History Abnormal thyroid ult rasound February 2022 work-up pending by ENT Surgical History 2019 Surgical History Cystoscopy 05/2021 Surgical History 2020 Hospitalization History See surgical hx [facility] Other 07-01-2022 History general Narrative - Reported* Type Description Date Medical History Anxiety Medical History pericardi tis- Resolved cardiology signed off Medical History Kidney stones during Medical History Tiffani's disease February 2022 Medical History Abnormal thyroid ult rasound February 2022 work-up pending by ENT Medical History Parathyroid adenoma Surgical History 2018 Surgical History Cystoscopy 05/2021 Surgical History 2020 Hospitalization History See surgical hx [facility] Other 06-29-2022 Evaluation note* Encounter Date Diagnosis [...] that were not corrected during review process. 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 documented in this encounter [facility]* Diagnosis 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 documented in this encounter [facility]* Diagnosis Dysphagia, unspecified type- Primary LPRD (laryngopharyngeal reflux disease) Other diseases of larynx documented in this encounter [facility]* Diagnosis Onset Date Resolution Status Obesity acute [facility] Work Phone: Evaluation note* Diagnosis 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 Irregular menstruation, unspecified Female infertility Female infertility of unspecified origin Calculus of kidney documented in this encounter [facility]* Diagnosis Onset Date Resolution Status Obesity acute Class 2 obesity with body ma ss index (BMI) of 37.0 to 37.9 in adult [facility] Work Phone: Evaluation note* Diagnosis Onset Date Resolution Status Obesity acute Class 2 obesity with body ma ss index (BMI) of 37.0 to 37.9 in adult acute Class 2 obesity with body ma ss index (BMI) of 37.0 to 37.9 in adult acute [facility] Work Phone: Evaluation note* Diagnosis Onset [...] Evaluation note* Diagnosis Onset Date Resolution Status Well adult exam noneactive [facility] Work Phone: Evaluation [...] [facility] Diagnosis History of pericarditis- Primary Mild concentric left ventricular hypertrophy (LVH) 25 weeks gestation of documented in this encounter [facility]* Diagnosis 35 weeks gestation of [...] Surgical History 2020 Hospitalization History See surgical [facility] Other [facility] general Narrative - Reported* Type Description Date [...] Surgical History 2020 Hospitalization History See surgical [facility] Other [facility] general Narrative - Reported* Type Description Date [...] Surgical History 2020 Hospitalization History See surgical [employer] Other History of Present illness Narrative* Patient [...] no other testing or intervention appears necessary. [facility] 600 DO Work Phone: Hospital course Narrative No data available for this section [facility] No data available for this section [facility] InstructionsNot on filedocumented in this encounter [facility]* Attachments The following attachments cannot be sent through Care Everywhere. * Preeclampsia (Mozambican) documented in this encounterSumma Health SystemInstructionsNot on file documented in this encounterSumma Health SystemProgress note No data available for this section [facility] (narrative)* Reason Dr. 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) Referral Organization [facility] Referring Provider First Name [place] Referring Provider Last Name [facility] Referring Provider Specialty Nurse Pract itioner Referred Provider Specialty Endocrinolog y Referral Priority Routine [place] [employer] Other Reason for referral (narrative)* Diagnostic Procedure Only (Routine) - Pending Review Specialty Diagnoses / Procedures Referred By Contac t Referred To Contact XR IMAGING Diagnoses Dysphagia, unspecified type Procedures XR MODIFIED BARIUM SWALLOW W SPEECH THERAPY RADIOLOGIC EXAM SWALLOW FUNCTION CONTRAST STUDY Francy Gan PA-C [address] [address] [place] [address] Referral ID Status Reason Start Date Expiration Date Visits Requested Visits Authorized [id number] Pending Review Auto-Generat ed Referral 3 07/07/2024 1 1 [facility] Chief Complaint TAWNYA HERRING is [...] z3a.18 z86.39 z34.92 June 28t 2023 7:51am Chief Complaint Admit Date z36.89 [...] Dysphagia, unspecifi ed type (R13.10) Referral Organization [facility] Referring Provider First Name [place] Referring Provider Last Name [facility] Referring Provider Specialty Nurse Pract itioner Referred Organization [facility] Referred Address [address] [place],[address] Referred Provider Specialty Ear, Nose an d Throat Referral Priority Routine Reason ABNORMAL US OF THYRO ID Newly discovered [employer] Diagnosis 1 Thyromegaly (E01.0) Referral Organization [facility] Referring Provider First Name Darwin Referring Provider Last Name [facility] Referring Provider Specialty Nurse Pract itioner Referred Provider Specialty Ear, Nose an d Throat Referral Priority Routine Additional Source Comments INFORMATION SOURCE (unrecogn ized section and content) DATE CREATED AUTHOR 09/04/2021 [employer] DATE CREATED AUTHOR AUTHOR'S ORGANIZ ATION 12/18/2022 [facility] DATE CREATED AUTHOR AUTHOR'S ORGANIZ ATION 11/22/2023 [facility] DATE CREATED AUTHOR AUTHOR'S ORGANIZ ATION 03/20/2024 Hamlet Aguila [facility] DATE CREATED AUTHOR AUTHOR'S ORGANIZ ATION 08/05/2024 [facility] DATE CREATED AUTHOR AUTHOR'S ORGANIZ ATION 09/06/2024 Rose Bollinger [facility] DATE CREATED AUTHOR AUTHOR'S ORGANIZ ATION 09/08/2024 Rose Bollinger [facility] DATE CREATED AUTHOR AUTHOR'S ORGANIZ ATION 09/13/2024 Hamlet Aguila [facility] DATE CREATED AUTHOR AUTHOR'S ORGANIZ ATION 10/12/[address] [facility] EPIC DATE CREATED AUTHOR AUTHOR'S ORGANIZ ATION 10/15/2024 Hamlet Bollinger [facility] DATE CREATED AUTHOR AUTHOR'S ORGANIZ ATION 10/16/2024 [facility] y[facility] Care Teams (unrecognized sec tion [...] [address] Attending Provider Active Start: [facility] 2023 End: November 01, 2023 Team [...] Primary Care Provider Active Addi Ortega DO [facility] Attending Provider Active Team Status: Inactive Member [...] Primary Care Provider Active Addi Ortega DO [facility] Attending Provider Active Team Status: Active Member Role Status Dates PHYSICIAN NO FAMILY Primary Care Provider Active Team Status: Inactive Member Role Status Dates Darwin Jones APRN Primary Care Provider, Attend ing Provider Active Team Status: Inactive Member Role Status Dates Darwin Jones APRN Primary Care Provider Active Saad Valera DO Attending Provider Active Skill Training Program Coordinator Relationship Specialty Start Date End Date Darwin Jones MAINTENANCE EQUIPMENT OPERATOR [address] [address] Referring Family Medicine 04/22/22 Skill Training Program Coordinator Relationship Specialty Start Date End Date Darwin Jones MAINTENANCE EQUIPMENT OPERATOR [address] [address] Referring Family Medicine 04/22/22 Team Status: Inactive Member Role Status Dates Darwin Jones APRN Primary Care Provider Active Jeovanny Quiros DO Emergency Provider Active Skill Training Program Coordinator Relationship Specialty Start Date End Date Darwin Jones CNP [address] [address] Referring Family Medicine 04/22/22 Skill Training Program Coordinator Relationship Specialty Start Date End Date Darwin Jones CNP [address] [address] Referring Family Medicine 04/22/22 Team Status: Inactive Member Role Status Dates Darwin Jones APRN Attending Provider Active Start: July 23, 2023 End: July 23, 2023 Team Status: Inactive Member Role Status Dates Darwin Jones APRN Attending Provider Active Start: August 25, 2023 End: August 25, 2023 Skill Training Program Coordinator Relationship Specialty Start Date End Date Darwin Jones CNP [address] [address] Referring Family Medicine 04/22/22 Team Status: Inactive [...] 2023 End: December 27, 2023 Brainjonathan Chiango , DO Attending Provider Active Start : December 27, 2023 End: December 27, 2023 Team Status: Inactive Member Role Status Dates Darwin Jones APRN Primary Care Provider Active Start: January 24, 2024 End: January 24, 2024 Brain Seamus , DO Attending Provider Active Start : January 24, 2024 End: January 24, 2024 Team Status: Inactive Member Role Status Dates Darwin Jones APRN Primary Care Provider Active Start: February 24, 2024 End: February 24, 2024 Brainjonathan Chiango , DO Attending [...] Role Status Dates Darwin J Easterwood , 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 Primary Care Provider Active Start: September 21, 2024 End: September 21, [address] DO Attending Provider Active Start : September 21, 2024 End: September 21, 2024 Skill Training Program Coordinator Relationship Specialty Start Date End Date No Pcp, [place] [address] PCP - General Family Medicine 08/19/19 Skill Training Program Coordinator Relationship Specialty Start Date End Date No Pcp, [place] [address] PCP - General Family Medicine 08/19/19 Skill Training Program Coordinator Relationship Specialty Start Date End Date No Pcp, [place] [address] PCP - General Family Medicine 08/19/19 Goals [...] encounterNot on filedocumented as of this encounter No data available for this section No data available for this section REASON FOR VISIT (unrecogniz ed section and content) Reason Comments Appointment LVM for patient that appt on 05/[address] George has been rescheduled to 07/08 at [facility] [place] with Dr. Robertson. sending mail reminder as [...] or prosecute any alcohol or drug abuse patient.[facility] CenterIn the event this information is protected by the Federal Confidentiality of Alcohol and Drug Abuse Patient Records regulations: The Federal rules restrict any use of the information to criminally investigate or prosecute any alcohol or drug abuse patient.[facility] CenterIn the event this information is protected by the Federal Confidentiality of Alcohol and Drug Abuse Patient Records regulations: The Federal rules restrict any use of the information to criminally investigate or prosecute any alcohol or drug abuse patient.[facility] CenterIn the event this information is protected by the Federal Confidentiality of Alcohol and Drug Abuse Patient Records regulations: The Federal rules restrict any use of the information to criminally investigate or prosecute any alcohol or drug abuse patient.[facility] CenterIn the event this information is protected by the Federal Confidentiality of Alcohol and Drug Abuse Patient Records regulations: The Federal rules restrict any use of the information to criminally investigate or prosecute any alcohol or drug abuse patient.[facility] Center[facility] the event this information is protected by the Federal Confidentiality of Alcohol and Drug Abuse Patient Records regulations: The Federal rules restrict any use of the information to criminally investigate or prosecute any alcohol or drug abuse patient.[facility] FOR RECORDS PERTAINING TO PATIENTS [...] ON THE PRIMARY CLINICAL RECORDS. [facility] [employer] [facility]. provides no warranty or guarantee of the accuracy or completeness of information in this document.
[2024-10-17 19:57] VITALS: BP 127/77; PULSE 101
== END 2024-10-17 20:32 | disposition home or self-care (01) ==
LOC: FBCO 00:50 → FBC 19:49
PROVIDERS: PCP Nurse Practitioner Family; Visit Provider Obstetrics & Gynecology
DX: O36.63X0 Maternal care for excessive fetal growth, third trimester, not applicable or unspecified (principal); Z3A.36 36 weeks gestation of pregnancy
CPT/HCPCS: 59025

== ENCOUNTER 2024-10-20 01:49 | Outpatient (OUT) | payer OTHER, SELFPAY ==
--- NOTE | 2024-10-20 | US_ITS ---
[place] [address] Patient Name: BARBY HERRING MRN: [id number] date: 1995 Sex: F Assigned Patient Location: [facility] Current Patient Location: Accession/Order Number: [id number] Exam Date: 10/21/2024 00:35 Report Date: 10/21/2024 00:37 At the request of: GAMAL ADAN DO Procedure: US OB BPP w non-stress BIOPHYSICAL PROFILE: CLINICAL INFORMATION: Excessive growth O36.63x1 COMPARISON: 10/13/2024 There is a single live intrauterine gestation in cephalic presentation. The reported gestational age is 37 weeks 2 days. The heart rate [id number] beats per minute. FINDINGS: TONE: 1 or more episodes of activity extension and flexion of extremity or opening and closing of the hand [Y] 2/2 GROSS BODY MOVEMENTS: 3 or more discrete body or limb movements [Y] 2/2 BREATHING MOVEMENTS: 1 or more episodes of breathing lasting at least 30 seconds [Y] 2/2 LIEN: A single deepest vertical pocket of amniotic fluid greater than 2 cm [Y] 2/2 LIEN: 25.8 cm . This is borderline polyhydramnios (95th percentile 27 cm). Total score: 03/23 US/US OB BPP w non-stress IMPRESSION: NORMAL BIOPHYSICAL PROFILE. BORDERLINE POLYHYDRAMNIOS. Impression dictated by: Aleisha Tapia M.D.10/21/2024 12:37 AM Dictation Location: [place] [address] Electronically authenticated by: [id number] Y Date: 10/21/2024 00:37
--- OUTSIDE RECORDS SUMMARY | 2024-10-20 01:54 | XMS_ITS | CCD ---
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 Role Phone Unknown, Unknown Unavailable Unavailable Unavailable Unavailable NO FAMILY, PHYSICIAN Primary Care Provider Unava ilable DO Addi Ortega Attending Provider Darwin Jones Unavailable DARWIN JONES Primary Care Physician Lilly Luke Unavailable SHIRLEY Jones Primary Care Provider SHIRLEY Jones Attending Provider DO Saad Valera Attending Provider Ofelia Hester Unavailable [facility] AMIE Darwin Unavailable Sima Ross Unavailable [facility] AMIE Darwin Unavailable SHIRLEY Jones Primary Care Provider SHIRLEY Hester Attending Provider SHIRLEY Jones Primary Care Provider SHIRLEY Hester Attending Provider [phone] Attending Provider [phone] REQUEST, DR HOBOSN LISTED Primary Care Unavaila ble SEAMUS ., DR YEUNG Attending Unavailable SEAMUS ., DR YEUNG Consulting Unavailable SEAMUS ., DR YEUNG Admitting Unavailable SHIRLEY Jones Primary Care Provider DO Addi Ortega [facility]ending [facility] Primary Care Provider DO Jeovanny Quiros Emergency Provider [facility] Primary Care Provider DO Addi Ortega Attending Provider [facility] Primary Care Provider [phone] Attending Provider [facility] Primary Care Provider Brain Way Attending Provider RUBY WHITTINGTON Attending Unavailable FRANCY GAN Attending Unavailable [facility] Primary Care Provider Brain Way Attending Provider [facility] Primary Care Provider [phone] Attending Provider [place] Attending Unavailable Gabriel Curtis Attending Unavailable Tyrone Rock Attending Unavailable [facility] Primary Care Provider DO Brain Way Attending Provider [phone] [facility] Attending Provider SHIRLEY Jones Primary Care Provider [phone] Attending Provider SHIRLEY Jones Primary Care Provider [phone] Attending Provider Unavailable Primary Care Provider [facility] Darwin Jones APRN Primary Care Provider [facility] Addi SELLERS Attending Provider Brain Way DO Attending Provider [phone] SEAMUS, BRAIN R Referring Unavailable NO PCP, NO PCP Primary Care Unavailable RUPA REILLYA P Attending Unavailable NO PCP, NO PCP Primary Care Unavailable HAYDEN REILLY P Referring Unavailable DARCY ENRIQUEZ Attending Unavailable SEAMUS, BRAIN R Referring Unavailable NO PCP, NO PCP Primary Care Unavailable EasterDarwin cavazos APRN Primary Care Provider Brain Way DO Attending Provider Mary Ellen Bruce MD Attending Provider [phone] DO Gabriel Curtis Attending Unavailable [place] Attending Unavailable Rogelio Nath Attending Unavailable Rogelio Nath Admitting Unavailable Rogelio Nath Attending Unavailable Rogelio Nath Admitting Unavailable Flash Franco Attending Unavailable [facility] Darwin WATSON Primary Care Provider SeamusBrain woo DO Attending Provider [phone] No Pcp, No Pcp Primary Care Provider Unavailabl e MYA FINCH Attending Unavailable SEAMUS, BRAIN Attending Unavailable MYA FINCH Attending Unavailable SEAMUS, BRAIN Attending Unavailable SEAMUS, BRAIN Attending Unavailable SEAMUS, BRAIN Attending Unavailable SEAMUS, BRAIN Attending Unavailable SEAMUS, BRAIN Attending Unavailable SEAMUS, BRAIN Attending Unavailable BorpatrickerCamilleLesley C Admitting Unavailable Jeffdnanisa, Lesley C Attending Unavailable Lesley Blanco C Attending Unavailable Darwin Jones Primary Care Unavailable Seamus, Brain Attending Unavailable Seamus, Brain Admitting Unavailable EasterDarwin cavazos Primary Care Unavailable Seamus, Brain Attending Unavailable Seamus, Brain Admitting Unavailable Seamus, Brain Attending Unavailable Darwin Jones Primary Care Unavailable Seamus, Brain Admitting Unavailable Seamus, Brain Attending Unavailable Darwin Jones Primary Care Unavailable Seamus, Brain Admitting Unavailable Janis, Mary Ellen Admitting Unavailable Mary Ellen Bruce Attending Unavailable Darwin Jones Primary Care Unavailable Mary Ellen Bruce Attending Unavailable Darwin Jones Primary Care Unavailable Janis, Mary Ellen Admitting Unavailable Seamus, Brain Attending Unavailable Robert, Darwin Anaya Primary Care Unavailable Seamus, Brain Admitting Unavailable [facility], Darwin J Primary Care Unavailable Seamus, Brain Attending Unavailable Seamus, Brain Admitting Unavailable [facility], Darwin J Primary Care Unavailable Seamus, Brain Attending Unavailable Seamus, Brain Admitting Unavailable [facility], Darwin J Primary Care Unavailable Seamus, Brain Attending Unavailable Seamus, Brain Admitting Unavailable [facility], Darwin J Primary Care Unavailable Seamus, Brain Attending Unavailable Seamus, Brain Admitting Unavailable [facility], Darwin J Primary Care Unavailable Seamus, Brain Attending Unavailable Seamus, Brain Admitting Unavailable [facility], Addi P Admitting Unavailable [facility], Addi P Attending Unavailable [facility], Darwin J Primary Care Unavailable Allergies Allergy Classification Reported Allergen(s) Allergy Type Date of Onset Reaction(s) Facility (6 sources) No Known Medication Allergies; Translations: [No Known Medication Allergies] Propensity to adverse reactions (disorder) [facility] Repository Medications Current Medications Medication Drug [...] tablet (2 sources) Opioid Agonist Start: 06-03-2021 [place] 325 mg-5 mg oral tablet 2 tab(s), [...] day(s), # 20 tab(s), Refills(s) 0, Pharmacy: [facility], 170.2, cm, 09/29/23 10:44:00 EST, Height/Length [...] day(s), # 28 cap(s), Refills(s) 0, Pharmacy: [facility], 170.2, cm, 08/07/23 20:14:00 EDT, Height/Length Dosing, 113.5, kg, 03/22/23 20:14:00 EDT, Weight Dosing Start Date: 03/22/23 Stop Date: 03/29/23 Status: Ordered Start: 07-03-2021 take 1 capsule by mo uth twice daily Keflex 500 mg Cap 500 mg = 1 cap(s), Oral, BID, # 10 cap(s), Refills(s) 0, Pharmacy: [facility], 170, cm, 06/27/21 10:56:00 EST, Height/Length [...] October 07, 2023 7:06pm Start: 10-15-2019 End: 10-13-2025 take 1 tablet by mouth once daily citalopram (CeleXA) 20 MG tablet Indications: Anxiety, generalized (CMS/HCC) Take 1 tablet (20 mg) by mouth 1 (one) time each day at the same time 90 tablet 3 10/18/2024 10/13/2025 Active Comment on above: Take 20 mg [...] mg oral tablet (20 sources) l-Thyroxine Start: take 2 tablets by mouth once daily Synthroid 50 mcg Tab See Instructions, Oral 2 tab (100mcg) daily, Refills(s) 0 Start Date: 09/05/24 Status: Ordered Start: 08-25-2024 take 1 capsule by [facility] once daily Levothyroxine 100 mcg capsule Active [...] day(s), # 21 tab(s), Refills(s) 0, Pharmacy: [facility], 170.2, cm, 09/29/23 10:44:00 EST, Height/Length [...] Apr, Active take 1 capsule by mo [facility] once daily omeprazole (PRILOSEC) 20 mg capsule [...] Date: 02/18/22 Stop Date: 02/21/22 Status: Ordered Hbl993-Ttcskjs Fumarate-Fa () 28-800 mg-mcg Tablet (20 sources) Start: 12-29-2020 Vzq276-Iiupyte Fumarate-Fa () 28-800 mg-mcg Tablet Active TAB PO December 29, 2020 3:43pm Start: 12-29-2020 End: 10-07-2023 Zai312-Ugdzyjj Fumarate-Fa ( ) 28-800 mg-mcg Tablet Discontinued TAB PO December 28, 2020 11:00pm October 07, 2023 6:06pm Start: 12-29-2020 End: 10-07-2023 Wyx506-Uijuyhq Fumarate-Fa ( ) 28-800 mg-mcg Tablet Discontinued TAB PO December 29, 2020 12:00am October 07, 2023 7:06pm Start: 12-29-2020 Axu220-Rzstcpn Fumarate-Fa () 28-800 mg-mcg Tablet Active TAB PO December 28, 2020 11:00pm Start: 12-29-2020 Nqm932-Blvhysh Fumarate-Fa () 28-800 mg-mcg Tablet Active TAB PO December 29, 2020 12:00am -rhgg fum-folic ac-o m3 (One Daily ) (12 sources) Start: 08-25-2024 nrdpoj95-qbhc fum-folic ac-om3 (One Daily ) Active 1 PKG PO Daily August 25, 2024 12:10pm Start: 05-11-2024 End: 08-25-2024 hofllv93-lsum fum-folic ac-o m3 (One Daily ) Discontinued PO May 10, 2024 11:00pm August 25, 2024 12:11pm Start: 05-11-2024 -qugw fum-folic ac-om3 (One Daily ) Active PO May 10, 2024 11:00pm Start: 05-11-2024 -vlon fum-folic ac-om3 (One Daily ) Active PO May 11, 2024 12:00am MV-Min-Fe Fum-FA-DHA ( 1 PO) (20 sources) MV-Min- Fe Fum-FA-DHA ( 1 PO) Take 1 each by mouth Daily Active vv919-exvh-pwquw acid ( 19) 29 mg iron- 1 mg tablet,chewable (2 sources) jj394-kqgr-lbpor acid ( 19) 29 mg iron- 1 [...] Drug Class(es) Dates Sig (Normalized) Sig (Original) drospirenone / Ethinyl Estradiol (20 sources) Progestin, [...] source) Vitamin B12 cyanocobalamin/f olic acid (VITAMIN I80-KKSEF ACID) 1,000-400 mcg lozg Take by mouth [...] Start: 05-26-2023 take 1 capsule by mo [facility] every twenty-four hours Phentermine HCl 37.5 MG 1 capsule Orally Once a day for 30 days May, Active Comment on above: Take 37.5 mg by mowv h. Vitamin (14 sources) Vitamin OTC Not-Taking [...] [36 weeks gestation of ] 10-10-2024 Episodic Residual codes; unclassified (2 sources) Gestation period, 37 weeks; Translations: [37 weeks gestation of ] 10-18-2024 Episodic Syncope (1 source) Syncope and collapse; [...] Range Facility Urinalysis macro (dipstick) panel (U)on 10-18-2024 Bilirubin, UA Negative Negative - 4(70) +++ mg/dL [facility] Blood, UA Positive Negative - 50 Dain/mcL [facility] Comment on above: small Clarity, UA Clear [facility] Color, UA Straw [facility] Glucose, UA Negative Negative - 2000(110) ++++ mg/dL [facility] Interpretation and review of laboratory results Abnormal [facility] Ketones, UA Negative Negative - 160(16) ++++ mg/dL [facility] Leukocytes, UA Positive Negative - 500+++ Chaparrita/mcL [facility] Comment on above: small Nitrite, UA Negative Negative - Positive [facility] pH, UA 7 5 - 9 [facility] Protein, UA Trace Negative - 2000(20) ++++ mg/dL [facility] Spec Grav, UA 1.02 1 - 1.03 [facility] Urobilinogen, UA 0.2 0.2 - 12 mg/dL Critical [facility] hospital ALL MISCELLANEOUS TESTon MISCELLANEOUS TEST COMMENT . [facility] Comment on above: Test Ordered: 460480 Strep Gp B Culture+Rflx Strep Gp B Culture+Rflx Negative CB Reference Range: Negative Centers for Disease Control and Prevention (CDC) and [place] [employer]stetricians and Gynecologists (ACOG) guidelines [...] resistance to clindamycin is noted. Performed at: [facility] [address] [id number] Non Acoustic Operator: Alexis Ashton PhD, Phone: [phone] GBS CX WITH SUSEPTIBILITY CLINISYNC [facility] Ambulatory Visit Summaryon 0 10-14-2024 Ambulatory Visit Summary Ambulatory Visit Summary TAWNYA HERRING :1995 Visit Date:10/14/2024 Ambulatory Visit Instructions Your [...] Up with DARWIN JONES CNP When: Where: [address] [place] [address]- Medications What How Much When Instructions Unchanged [...] these instructions at home: Medicines ??? Take spsf-nda-rgystba and prescription medicines only as told by [...] doctor. ??? (more content not included)... Normal [facility] Family Medicine Office/Clini c Noteon 10-14-2024 Family [...] with voice recognition software. Occasional wrong-word or ???ympdy-b-covc??? substitutions may have occurred due to the [...] tx plan. Ordered: Influenza Type A&B POC 00453 Rapid Strep POC 52079 Strep Screen Culture 2. Exposure to strep throat (Z20.818: Contact with and (suspected) exposure to other bacterial communicable diseases) Rapid strep negative, will send for culture to confirm. 3. Exposure to influenza (Z20.828: Contact with and (suspected) exposure to other viral communicable diseases) Rapid Flu A/B negative. Congestion of nasal sinus (R09.81: Nasal congestion) Ordered: Influenza Type A&B POC 99974 Rapid Strep POC 65281 Follow-up With When Contact Information DARWIN JONES CNP [address] [place] [address]- Additional Instructions: Patient Education Pharyngitis, Nklh-tc-Hzfn Problem List/Past Medical History Ongoing Anxiety Kidney [...] - De (more content not included)... Normal [facility] Comment on above: Result Comment: Elec tronically Signed By: Bella GARCÍA, Etta\.br\Date and Time Signed: 10/14/24 09:31 EST US OB GROWTHon 10-13-[address] [address] Ultrasound Report Signed Patient: TAWNYA HERRING MR#: [id number] : 1995 Acct:[id number] Age/Sex: 29 / F ADM Date: 10/13/24 Loc: US Attending Dr: Brain Way D.O. Ordering Physician: Brain Way D.O. Date of Service: 10/13/24 Procedure(s): US OB growth Accession Number(s): [id number] cc: Darwin Jones MATTRESS INSPECTOR; Brain Way D.O. [address] [address] Patient Name: TAWNYA HERRING MRN: [id number] date: 1995 Sex: F Assigned Patient Location: [facility] Current Patient Location: Accession/Order Number: [id number] Exam Date: 10/13/2024 13:36 Report Date: 10/13/2024 [...] Aleisha Tapia M.D.10/13/2024 1:44 PM Dictation Location: [facility] Electronically authenticated by: [id number] Y Date: 10/13/2024 13:44 Dictated By: Aleisha Tapia M.D. Signed By: 10/13/24 1347 DD/ 1344 TD/TT: Cook Box Filler: [facility] Radiology, Radiologi stMD Andrews 10/13/2024 [place] [address] Ultrasound Report Signed Patient: TAWNYA HERRING MR#: [id number] : 1995 Acct:[id number] Age/Sex: 29 / F ADM Date: 10/13/24 Loc: US Attending Dr: Brain Way D.O. Ordering Physician: Brain Way D.O. Date of Service: 10/13/24 Procedure(s): US OB growth Accession Number(s): [id number] cc: Darwin Jones MATTRESS INSPECTOR; Brain Way D.O. The [place] [id number] Patient Name: TAWNYA HERRING MRN: [id number] date: 1995 Sex: F Assigned Patient Location: [facility] Current Patient Location: Accession/Order Number: [id number] Exam Date: 10/13/2024 13:36 Report Date: 10/13/2024 [...] Aleisha Tapia M.D.10/13/2024 1:44 PM Dictation Location: [place] [address] Electronically authenticated by: [id number] Y Date: 10/13/2024 13:44 Dictated By: Aleisha Tapia M.D. Signed By: 10/13/24 1347 DD/ 1344 TD/TT: Cook Box Filler: [facility] Radiology Study observation (narrative) [facility] US OB GROWTHOrdered By: Halima ologleighton Radiology on 10-13-2024 [facility] Work Phone: Urinalysis macro (dipstick) panel (U)on 10-10-2024 Bilirubin, UA Negative Negative - 4(70) +++ mg/dL [facility] Blood, UA Negative Negative - 50 Dain/mcL [facility] Clarity, UA Clear [facility] Color, UA Yellow [facility] Glucose, UA Negative Negative - 2000(110) ++++ mg/dL [facility] Interpretation and review of laboratory results Abnormal [facility] Ketones, UA Negative Negative - 160(16) ++++ mg/dL [facility] Leukocytes, UA Trace Negative - 500+++ Chaparrita/mcL [facility] Nitrite, UA Negative Negative - Positive [facility] pH, UA 7 5 - 9 [facility] Protein, UA Trace Negative - 1999(20) ++++ mg/dL [facility] Spec Grav, UA 1.015 1 - 1.03 [facility] Urobilinogen, UA 1.0 0.2 - 12 mg/dL Critical [facility] hospital US OB BPP W NON-STRESS on 10-05-[address] [address] Ultrasound Report Signed Patient: TAWNYA HERRING MR#: [id number] : 1995 Acct:[id number] Age/Sex: 29 / F ADM Date: Loc: [facility] 254-[address]: Brain Way D.O. Ordering Physician: Brain Way D.O. Date of Service: 10/04/24 Procedure(s): US OB BPP w non-stress Accession Number(s): [id number] cc: Darwin Jones MATTRESS INSPECTOR; Brain Way D.O. [place] [address] Patient Name: TAWNYA HERRING MRN: [id number] date: 1995 Sex: F Assigned Patient Location: [facility] Current Patient Location: [facility] Accession/Order Number: [id number] Exam Date: 10/05/2024 10:54 Report Date: 10/05/2024 10:58 At the request of: BRAIN WAY DO Procedure: US OB BPP w non-stress BIOPHYSICAL PROFILE: CLINICAL INFORMATION: decreased movement COMPARISON: 09/28/2024 There is a fetus in cephalic presentation. The reported gestational age is 35 weeks 0 days. The heart rate uxzytzrd009 beats per minute. FINDINGS: TONE: 1 or [...] Aleisha Tapia M.D.10/05/2024 10:58 AM Dictation Location: [employer] Electronically authenticated by: [id number] Y Date: 10/05/2024 10:58 Dictated By: Aleisha Tapia M.D. Signed By: 10/05/24 1239 DD/ 1058 TD/TT: Cook Box Filler: [facility] Brenna Radiolognoel contreras MD - 10/05/2024 [place] [address] Ultrasound Report Signed Patient: TAWNYA HERRING MR#: [id number] : 1995 Acct:[id number] Age/Sex: 29 / F ADM Date: Loc: [facility] 254-[address]: Brain Way D.O. Ordering Physician: Brain Way D.O. Date of Service: 10/04/24 Procedure(s): US OB BPP w non-stress Accession Number(s): [id number] cc: Darwin Jones MATTRESS INSPECTOR; rBain Way D.O. The [place] [address] Patient Name: TAWNYA HERRING MRN: [facility]:[id number] date: 1995 Sex: F Assigned Patient Location: [facility] Current Patient Location: [facility] Accession/Order Number: [id number] Exam Date: 10/05/2024 10:54 Report Date: 10/05/2024 10:58 At the request of: BRAIN WAY DO Procedure: US OB BPP w non-stress BIOPHYSICAL PROFILE: CLINICAL INFORMATION: decreased movement COMPARISON: 09/28/2024 There is a fetus in cephalic presentation. The reported gestational age is 35 weeks 0 days. The heart rate bvsvhfqu749 beats per minute. FINDINGS: TONE: 1 or [...] Aleisha Tapia M.D.10/05/2024 10:58 AM Dictation Location: [place] [address] Electronically authenticated by: [id number] Y Date: 10/05/2024 10:58 Dictated By: Aleisha Tapia M.D. Signed By: 10/05/24 1239 DD/ 1058 TD/TT: Cook Box Filler: [facility] Radiology Study observation (narrative) [facility] US OB BPP W NON-STRESS Ordered By: Radiologist Radiology on 10-05-2024 [facility] Work Phone: Urinalysis macro (dipstick) panel (U)on 10-05-2024 Bilirubin, UA Negative Negative - 4(70) +++ mg/dL [facility] Blood, UA Negative Negative - 50 Dain/mcL [facility] Clarity, UA Clear [facility] Color, UA Yellow [facility] Glucose, UA Negative Negative - 2000(110) ++++ mg/dL [facility] Interpretation and review of laboratory results Abnormal [facility] Ketones, UA Negative Negative - 160(16) ++++ mg/dL [facility] Leukocytes, UA Positive Negative - 500+++ Chaparrita/mcL [facility] Comment on above: small Nitrite, UA Negative Negative - Positive [facility] pH, UA 7 5 - 9 [facility] Protein, UA Negative Negative - 2000(20) ++++ mg/dL [facility] Spec Grav, UA 1.02 1 - 1.03 [facility] Urobilinogen, UA 0.2 0.2 - 12 mg/dL Critical access hospital US OB BPP W NON-STRESS on 09-29-[address] [address] Ultrasound Report Signed Patient: TAWNYA HERRING MR#: [id number] : 1995 Acct:[id number] Age/Sex: 29 / F ADM Date: 09/28/24 Loc: US Attending Dr: Brain Way D.O. Ordering Physician: Brain Way D.O. Date of Service: 09/28/24 Procedure(s): US OB BPP w non-stress Accession Number(s): [id number] cc: Darwin Jones MATTRESS INSPECTOR; Brain Way D.O. The [place] [id number] Patient Name: TAWNYA HERRING MRN: [facility]:[id number] date: 1995 Sex: F Assigned Patient Location: [facility] Current Patient Location: Accession/Order Number: [id number] Exam Date: 09/28/2024 19:56 Report Date: 09/29/2024 [...] Signed By: 09/29/24 0734 DD/ 0732 TD/TT: Cook Box Filler: [facility] Radiology, Radiologi MD diane - 09/29/2024 [place] [address] Ultrasound Report Signed Patient: TAWNYA HERRING MR#: [id number] : 1995 Acct:[id number] Age/Sex: 29 / F ADM Date: 09/28/24 Loc: US Attending Dr: Brain Way D.O. Ordering Physician: Brain aWy D.O. Date of Service: 09/28/24 Procedure(s): US OB BPP w non-stress Accession Number(s): [id number] cc: Darwin Jones MATTRESS INSPECTOR; Brain Way D.O. [address] [address] Patient Name: TAWNYA HERRING MRN: [facility]:[id number] date: 1995 Sex: F Assigned Patient Location: [facility] Current Patient Location: Accession/Order Number: [id number] Exam Date: 09/28/2024 19:56 Report Date: 09/29/2024 [...] Signed By: 09/29/24 0734 DD/ 0732 TD/TT: Cook Box Filler: [facility] Radiology Study observation (narrative) [facility] US OB BPP W NON-STRESS Ordered By: Radiologist Radiology on 09-29-2024 [facility] Work Phone: US OB BPP W NON-STRESS on 09-22-[address] [address] Ultrasound Report Signed Patient: TAWNYA HERRING MR#: [id number] : 1995 Acct:[id number] Age/Sex: 29 / F ADM Date: 09/22/24 Loc: [facility] 252-[address]: Brain Way D.O. Ordering Physician: Brain Way D.O. Date of Service: 09/22/24 Procedure(s): US OB BPP w non-stress Accession Number(s): [id number] cc: Darwin Jones MATTRESS INSPECTOR; Brain Way D.O. The [place] [address] Patient Name: TAWNYA HERRING MRN: [facility]:[id number] date: 1995 Sex: F Assigned Patient Location: [facility] Current Patient Location: [facility] Accession/Order Number: [id number] Exam Date: 09/22/2024 11:07 Report Date: 09/22/2024 [...] Signed By: 09/22/24 1138 DD/ 1135 TD/TT: Cook Box Filler: [facility] Radiology, Radiolognoel contreras MD - 09/22/2024 [place] [address] Ultrasound Report Signed Patient: TAWNYA HERRING MR#: [id number] : 1995 Acct:[id number] Age/Sex: 29 / F ADM Date: 09/22/24 Loc: [facility] 252-[address]: Brain Way D.O. Ordering Physician: Brain Way D.O. Date of Service: 09/22/24 Procedure(s): US OB BPP w non-stress Accession Number(s): [id number] cc: Darwin Jones MATTRESS INSPECTOR; Brain Way D.O. [place] [address] Patient Name: TAWNYA HERRING MRN: [id number] date: 1995 Sex: F Assigned Patient Location: [facility] Current Patient Location: [facility] Accession/Order Number: [id number] Exam Date: 09/22/2024 11:07 Report Date: 09/22/2024 [...] Signed By: 09/22/24 1138 DD/ 1135 TD/TT: Cook Box Filler: [facility] Radiology Study observation (narrative) [facility] US OB BPP W NON-STRESS Ordered By: Radiologist Radiology on 09-22-2024 [facility] Work Phone: Thyroid Stimulating Hormoneo n 09-21-2024 TSH Qn 2.52 m[IU]/L Normal 0.45-5.33 [facility] Comment on above: Result Comment: PERF ORMED BY: [place] [address] PATHOLOGIST SOLAR ENERGY SPECIALIST MIS SCHMIDT M.D. Performed By: #### T SH3 #### [address] Thyrotropin [Units/volume] i n Serum or PlasmaOrdered By: Brain Way on 09-21-2024 TSH Qn Thyrotropin [Units/v olume] in Serum or Plasma 0.45-5.33 [facility] Urinalysis macro (dipstick) panel (U)on 09-19-2024 Bilirubin, UA Positive Negative - 4(70) +++ mg/dL [facility] Comment on above: small Blood, UA Negative Negative - 50 Dain/mcL [facility] Clarity, UA Clear [facility] Color, UA Wendy [facility] Glucose, UA Negative Negative - 2000(110) ++++ mg/dL [facility] Interpretation and review of laboratory results Abnormal [facility] Ketones, UA Positive Negative - 160(16) ++++ mg/dL [facility] Comment on above: trace Leukocytes, UA Negative Negative - 500+++ Chaparrita/mcL [facility] Nitrite, UA Negative Negative - Positive [facility] pH, UA 6 5 - 9 [facility] Protein, UA Positive Negative - 2000(20) ++++ mg/dL [facility] Comment on above: 30 Spec Grav, UA 1.025 1 - 1.03 [facility] Urobilinogen, UA 1.0 0.2 - 12 mg/dL [facility] US OB BPP W NON-STRESS on 09-15-2024 [place] [address] Ultrasound Report Signed Patient: TAWNYA HERRING MR#: [id number] : 1995 Acct:[id number] Age/Sex: 29 / F ADM Date: 09/14/24 Loc: [facility] 254-[address]: Brain Way D.O. Ordering Physician: Brain Way D.O. Date of Service: 09/14/24 Procedure(s): US OB BPP w non-stress Accession Number(s): [id number] cc: Darwin Jones NP; Brain Way D.O. The [address] [id number] Patient Name: TAWNYA HERRING MRN: [facility]:[id number] date: 1995 Sex: F Assigned Patient Location: US Current Patient Location: Accession/Order Number: [id number] Exam Date: 09/14/2024 19:57 Report Date: 09/15/2024 [...] M.D. Signed By: 09/15/24616 DD/ 4 TD/TT: Cook Box Filler: [facility] Radiology, Radiologi MD diane - 09/15/2024 [place] [address] Ultrasound Report Signed Patient: TAWNYA HERRING MR#: [id number] : 1995 Acct:[id number] Age/Sex: 29 / F ADM Date: 09/14/24 Loc: [facility] 254-[address]: Brain Way D.O. Ordering Physician: Brain Way D.O. Date of Service: 09/14/24 Procedure(s): US OB BPP w non-stress Accession Number(s): [id number] cc: Darwin Jones NP; Brain Way D.O. [place] [address] Patient Name: TAWNYA HERRING MRN: [id number] date: 1995 Sex: F Assigned Patient Location: US Current Patient Location: Accession/Order Number: [id number] Exam Date: 09/14/2024 19:57 Report Date: 09/15/2024 [...] M.D. Signed By: 09/15/24616 DD/ 4 TD/TT: Cook Box Filler: [facility] Radiology Study observation (narrative) [facility] US OB BPP W NON-STRESS Ordered By: Radiologist Radiology on 09-15-2024 [facility] Work Phone: [facility] transthoracicon [facility] [place] [address] Echocardiogram Signed Patient: Tawnya Shay MR#: [id number] 29 : 1995 Acct:[id number] Age/Sex: 29 / F ADM Date: 09/14/24 Loc: [facility] Room: Type: [facility] Attending Dr: Mary Ellen Bruce MD [...] Mary Ellen Bruce MD 09/14/24 1116 Normal [facility] US OB GROWTHon 09-11-2024 [place] [address] Ultrasound Report Signed Patient: TAWNYA HERRING MR#: [id number] : 1995 Acct:[id number] Age/Sex: 29 / F ADM Date: 09/11/24 Loc: US Attending Dr: Mya Finch Ordering Physician: Mya Finch Date of Service: 09/11/24 Procedure(s): US OB growth Accession Number(s): [id number] cc: Mya Finch; Darwin Jones NP [place] [id number] Patient Name: TAWNYA HERRING MRN: [id number] date: 1995 Sex: F Assigned Patient Location: US Current Patient Location: US Accession/Order Number: [id number] Exam Date: 09/11/2024 10:00 Report Date: 09/11/2024 [...] Signed By: 09/11/24 1111 DD/ 1108 TD/TT: Cook Box Filler: [facility] Radiology, Radiologi MD diane - 09/11/2024 [place] [address] Ultrasound Report Signed Patient: TAWNYA HERRING MR#: [id number] : 1995 Acct:[id number] Age/Sex: 29 / F ADM Date: 09/11/24 Loc: US Attending Dr: Mya Finch Ordering Physician: Mya Finch Date of Service: 09/11/24 Procedure(s): US OB growth Accession Number(s): [id number] cc: Mya Finch; Darwin Jones NP The [address] [address] Patient Name: TAWNYA HERRING MRN: [facility]:[id number] date: 1995 Sex: F Assigned Patient Location: US Current Patient Location: US Accession/Order Number: [id number] Exam Date: 09/11/2024 10:00 Report Date: 09/11/2024 [...] Signed By: 09/11/24 1111 DD/ 1108 TD/TT: Cook Box Filler: [facility] Radiology Study observation (narrative) [facility] US OB GROWTHOrdered By: Halima ologist Radiology on 09-11-2024 [facility] Work Phone: D Urineon 09-07-2024 Bacteria identified [...] Locations R1: This test was performed at: [facility], [address] [place] [address], [address]- , [place], [facility] Comment on above: Performed By: #### 2 [id number] #### [facility] [address] [place] [address] Urinalysis macro (dipstick) panel (U)on 09-07-2024 Bilirubin, UA Negative Negative - 4(70) +++ mg/dL [facility] Blood, UA Negative Negative - 50 Dain/mcL [facility] Clarity, UA Clear [facility] Color, UA Yellow [facility] Glucose, UA Negative Negative - 2000(110) ++++ mg/dL [facility] Interpretation and review of laboratory results Normal [facility] Ketones, UA Negative Negative - 160(16) ++++ mg/dL [facility] Leukocytes, UA Negative Negative - 500+++ Chaparrita/mcL [facility] Nitrite, UA Negative Negative - Positive [facility] pH, UA 8 5 - 9 [facility] Protein, UA Negative Negative - 2000(20) ++++ mg/dL [facility] Spec Grav, UA 1.015 1 - 1.03 [facility] Urobilinogen, UA 1.0 0.2 - 12 mg/dL [facility] ED Clinical Summaryon 2024 ED Clinical Summary ED Clinical Summary [address] [address] ED Clinical Summary Person Information Name: TAWNYA HERRING [facility] Age: 29 Years : 1995 Sex: Female Language: Grenadian PCP: DARWIN JONES CNP Marital Status: Single Phone: [phone] Visit Id: Visit Reason: Headache; HEADACHE, FALL [...] 09/06/2024 16:26:55 09/06/2024 16:26:55 09/06/2024 16:26:55 ADDRESS: [address] [place] [phone] PHYS DOC NOTES: MEDICAL INFORMATION: Prescriptions Given: [...] day. PATIENT EDUCATION INFORMATION: Instructions: Concussion, Adult, Coqq-wd-Zohk Follow up: With: Address: When: DARWIN JONES [facility] [place] [address] [phone] [employer] (1) In 3 days 09/09/2024 Comments: Call to schedule a follow-up appointment with your primary care provider. Use Zofran as needed for nausea/vomiting. Return to the ED with any new or worsening symptoms. DIAGNOSIS: JEFFERSON (headache) Normal [facility] ED Note-Physicianon 09-06-19 ED Note-Physician ED [...] headache. She denies the use of any tzrv-gmy-vaumtxw medications for this. Patient denies any neck [...] [] Head CT not ordered by emergency long term acute care registered nurse [] Head CT ordered for reasons other than trauma [] Patient is 18 or older, presenting with minor blunt head trauma. Head CT (including cosigned orders) was ordered by an emergency long term acute care registered nurse for trauma because (select one or more):[SATISFIES MIPS PERFORMANCE]Reasons: [] Patient is 65 or older [] Patient GCS < 15 [] Patient has focal neurologic deficit [] Patient has severe headache [] Patient is vomiting [] Severe/dangerous mechanism of injury was identified(select one or more): []MVA with: patient ejection, of another passenger, rollover, speed > 40mph, airbag deployment, sales route driver helper or passenger on ATV or motorcycle [] [...] cosigned orders) was ordered by an emergency long term acute care registered nurse for trauma, no indication specified.[DOES NOT SATISFY MIPS PERFORMANCE] Medical Decision Making Patient is a 29-year-old female with a history of anxiety who presents to the ED 30 weeks with complaints of a headache following a syncope episode from a seated position yesterday. Patient is hemodynamically st (more content not included)... Normal [facility] Comment on above: Result Comment: Elec tronically Signed By: Lashon Tee PA-C\.br\Date and Time Signed: 09/06/24 16:20 EST\.br\Electronically Co-Signed By: Lashon Tee PA-C\.br\Date and Time Co-Signed: 09/06/24 16:21 EST\.br\Electronically Co-Signed By: Flash Franco DO\.br\Date and Time Co-Signed: 09/06/24 19:47 EST ED Patient Summaryon 025 ED Patient Summary ED Patient Summary [address] [address] Patient Discharge Instructions Person Information Name: TAWNYA HERRING Age: 29 Years Arrival Date: 09/06/2024 13:57:18 Discharge Diagnosis: JEFFERSON (headache) Primary Care Physician: DARWIN JONES CNP Provider Information Primary Provider: Flash Franco DO Advanced Detonator Assembler:Lashon Tee PA-C The exam and treatment you received in the Emergency Department were for an urgent problem and are not intended as complete care. It is important that you follow up with a doctor, nurse practitioner, or physician???s nurse practitioner physician assistant for ongoing care. If your [...] Follow-up Instructions: With: Address: When: DARWIN JONES [facility] [place] [address] [phone] Business (1) In 3 days 09/09/2024 Comments: [...] participating provider. Patient Education Materials: Concussion, Adult, Ufij-ps-Roiw A MESSAGE TO ALL PATIENTS REGARDING OPIOIDS PRESCRIPTION OPIOIDS: WHAT YOU NEED TO KNOW Prescription opioids can be used to help relieve pknsffah-es-oucaii pain and are often prescribed following a [...] not included)... Normal [facility] BLOOD BANKOrdered By: Estefany Morillo on 09-05-2024 Fibronectin. Ql (Vag fld) Negative 1 (09/05/24 5:47 AM) Normal [facility] Man Sero Comment on above: Interpretive Data: [...] Anion gap [Moles/Vol] 16 mmol/L Normal 6-16 [facility] Comment on above: Performed By: #### 2 [id number] #### [facility] [address] [place] [address] Calcium [Mass/Vol] 8.5 mg/dL Low 8.9-11.[address] [facility] Comment on above: Performed By: #### 2 112601 #### [facility] [address] [place] [address] Chloride [Moles/Vol] 108 mmol/L Normal 101-111 [facility] Comment on above: Performed By: #### 2 [id number] #### [facility] [address] [place] [address] CO2 [Moles/Vol] 17 mmol/L Low 21-31 [facility] Comment on above: Performed By: #### 2 300374 #### [facility] [address] [place] [address] Creatinine [Mass/Vol] 0.4 mg/dL Low 0.5-1.3 [facility] Comment on above: Performed By: #### 2 117782 #### [facility] [address] [place] [address] Glucose [Mass/Vol] 103 mg/dL Normal 55-[address] [facility] Comment on above: Performed By: #### 2 [id number] #### [facility] [address] [place] [address] Potassium [Moles/Vol] 3.6 mmol/L Normal 3.5-5.3 [facility] Comment on above: Performed By: #### 2 [id number] #### [facility] [address] [place] [address] Sodium [Moles/Vol] 137 mmol/L Normal 135-[address] [facility] Comment on above: Performed By: #### 2 610604 #### [facility] [address] [place] [address] Urea nitrogen [Mass/Vol] 9 mg/dL Normal 5-[address] [facility] Comment on above: Performed By: #### 2 869006 #### [facility] [address] [place] [address] Urea nitrogen/Creatinine [Mass ratio] 22 No Units High 10-[address] [facility] Comment on above: Performed By: #### 2 612546 #### [facility] [address] [place] [address] CBC w/ Auto Diffon 5 Basophils/100 WBC (Bld) 0.4 % Normal 0.0-2.[address] [facility] Comment on above: Performed By: #### 2 369183 #### [facility] [address] [place] [address] Basophils/Leukocytes Auto (Bld) [Pure # fraction] 0.1 E9/L Normal 0.0-0.[address] [facility] Comment on above: Performed By: #### 2 574250 #### [facility] [address] [place] [address] Eosinophils (Bld) [#/Vol] 0.0 E9/L Normal 0.0-0.[address] [facility] Comment on above: Performed By: #### 2 404629 #### [facility] [address] [place] [address] Eosinophils/100 WBC (Bld) 0.3 % Normal 0.0-8.[address] [facility] Comment on above: Performed By: #### 2 [id number] #### [facility] [address] [place] [address] Erythrocyte distribution width (RBC) [Ratio] 12.7 % Normal 10.9-14.[address] [facility] Comment on above: Performed By: #### 2 029085 #### [facility] [address] [place] [address] Hematocrit (Bld) [Volume fraction] 37.4 % Normal 34.0-46.[address] [facility] Comment on above: Performed By: #### 2 442961 #### [facility] [address] [place] [address] Hemoglobin (Bld) [Mass/Vol] 13.2 g/dL Normal 12.0-16.[address] [facility] Comment on above: Performed By: #### 2 980095 #### [facility] [address] [place] [address] Lymphocytes (Bld) [#/Vol] 1.1 E9/L Normal 1.0-4.[address] [facility] Comment on above: Performed By: #### 2 767000 #### [facility] [address] [place] [address] Lymphocytes/100 WBC (Bld) 7.0 % Low 14.0-50.[address] [facility] Comment on above: Performed By: #### 2 426771 #### [facility] [address] [place] [address] MCH (RBC) [Entitic mass] 33.0 pg Normal 27.0-34.[address] [facility] Comment on above: Performed By: #### 2 508032 #### [facility] [address] [place] [address] MCHC (RBC) [Mass/Vol] 35.4 g/dL Normal 31.4-36.0 [facility] Comment on above: Performed By: #### 2 031518 #### [facility] [address] [place] [address] MCV (RBC) [Entitic vol] 93.3 fL Normal 80.0-100.[address] [facility] Comment on above: Performed By: #### 2 935710 #### [facility] [address] [place] [address] Monocytes (Bld) [#/Vol] 0.7 E9/L Normal 0.2-1.[address] [facility] Comment on above: Performed By: #### 2 995096 #### [facility] [address] [place] [address] Neutrophils (Bld) [#/Vol] 13.7 E9/L High 2.0-7.[address] [facility] Comment on above: Performed By: #### 2 611487 #### [facility] [address] [place] [address] Neutrophils/100 WBC (Bld) 87.6 % High 36.0-75.[address] [facility] Comment on above: Performed By: #### 2 270474 #### [facility] [address] [place] [address] Platelet 324.0 E9/L Normal 150.0-500. [address] [facility] Comment on above: Performed By: #### 2 857661 #### [facility] [address] [place] [address] Platelet mean volume (Bld) [Entitic vol] 8.3 fL Normal 6.4-10.[address] [facility] Comment on above: Performed By: #### 2 938386 #### [facility] [address] [place] [address] RBC (Bld) [#/Vol] 4.0 E12/L Low 4.3-5.[address] [facility] Comment on above: Performed By: #### 2 027530 #### [facility] [address] [place] [address] WBC corrected for nucl RBC Auto (Bld) [#/Vol] 15.6 E9/L High 4.0-11.[address] [facility] Comment on above: Performed By: #### 2 612049 #### [facility] [address] [place] [address] CHEMISTRYOrdered By: SYSTEM SYSTEM on 09-05-2024 Albumin [...] Sensitivity Troponin I Instructions For Use, Nathen [employer], March 2018) Urea nitrogen [Mass/Vol] 9 mg/dL Normal 5 - 21 mg/dL [facility] Urea nitrogen/Creatinine [Mass ratio] 22 mg/mg High 10 - 20 [facility] ED Clinical Summaryon 2024 ED Clinical Summary ED Clinical Summary [place] [id number] ED Clinical Summary Person Information Name: TAWNYA HERRING [facility] Age: 29 Years : 1995 Sex: Female Language: Grenadian PCP: DARWIN JONES CNP Marital Status: Single Phone: [phone] Visit Id: Visit Reason: Abdominal pain - ; Vomiting - ; Syncope/Near syncope; PASSED OUT HIT HEAD,NAUSEA DIARRHEA VOMITING 30 WKS PREG Speciality: Acuity: 2 Enc Type: Emergency Med Service: Emergency Arrival: 09/05/2024 03:02:46 Discharge: LOS: 000 01:33 Checkin: 09/05/2024 03:02:46 Checkout: 09/05/2024 04:35:45 Dispo Type: Admitted as IP to this [facility] EVENTS: Event Name Event Status [...] 09/05/2024 04:35:45 09/05/2024 04:35:45 09/05/2024 04:35:45 ADDRESS: [address] [place] [phone] PHYS DOC NOTES: MEDICAL INFORMATION: Prescriptions Given: Medications to Continue with No Changes Other Medications citalopram (CeleXA 20 mg Tab) 1 Tablets By Mouth every day. PATIENT EDUCATION INFORMATION: Instructions: Syncope, Adult, Fdcp-pa-Qkll; Nausea and Vomiting, Adult, Vsdy-tg-Gyus; Diarrhea, Adult, Snsw-vn-Qvjw; Dehydration, Adult, Kyus-iu-Ssad Follow up: With: Address: When: DARWIN [address] [address] [phone] [employer] ([employer]yatta) In 3 days 09/08/2024 Comments: Please follow-up with Dr. Way for further evaluation management. Please return to the ED for any new or worsening symptoms. DIAGNOSIS: Dehydration; Diarrhea, unspecified; Nausea, vomiting, and diarrhea; Syncope Normal [facility] ED Note-Nursingon 09-05-2024 ED Note-Nursing ED Note-Nursing OB at bedside Normal [facility] ED Note-Physicianon 09-05-19 ED Note-Physician ED [...] and Complexity of Problems Differential Diagnosis: [] [facility] Data External documents reviewed: [] My EKG [...] Dayna 50 mL [F] 50 mL + [id number] [F] 25 mg, IV Piggyback Disposition Plan [...] not included)... Normal [facility] Comment on above: Result Comment: Elec tronically Signed By: Gabriel Curtis DO\.br\Date and Time Signed: 09/05/24 04:22 EST ED Patient Summaryon 025 ED Patient Summary ED Patient Summary [place] [id number] Patient Discharge Instructions Person Information Name: TAWNYA HERRING Age: 29 Years Arrival Date: 09/05/2024 03:02:46 Discharge Diagnosis: Dehydration; Diarrhea, unspecified; Nausea, vomiting, and diarrhea; Syncope Primary Care Physician: DARWIN JONES CNP Provider Information Primary Provider: Gabriel Curtis DO Advanced Detonator Assembler:None The exam and treatment you received in the Emergency Department were for an urgent problem and are not intended as complete care. It is important that you follow up with a doctor, nurse practitioner, or physician???s nurse practitioner physician assistant for ongoing care. If your [...] Follow-up Instructions: With: Address: When: DARWIN JONES [address] [place] [phone] Business (1) In 3 days 09/08/2024 Comments: Please follow-up with Dr. Way for further evaluation management. Please return to the ED for any new or worsening symptoms. In the event that this physician does not participate in your insurance network, please consult with your insurance company to find a nearby participating provider. Patient Education Materials: Syncope, Adult, Kmea-dl-Dbgp; Nausea and Vomiting, Adult, Whvr-al-Hsjx; Diarrhea, Adult, Ghsg-hz-Evnq; Dehydration, Adult, Ivyi-vj-Jncj A MESSAGE TO ALL PATIENTS REGARDING OPIOIDS PRESCRIPTION OPIOIDS: WHAT YOU NEED TO KNOW Prescription opioids can be used to help relieve wnwcrpie-br-pxyizx pain and are often prescribed following a [...] not included)... Normal [facility] Extra Blueon 09-05-2024 Tube Collected Plasma Yes Invalid Interpretation Code [facility] Comment on above: Performed By: #### 1 [id number] #### [facility] [address] [place] [address] FFNon 09-05-2024 Fibronectin. Ql (Vag fld) Negative Normal [facility] Comment on above: Result Comment: In [...] the antibody-antigen reaction. Performed By: #### 1 [id number] #### [facility] [address] [place] [address] HEMATOLOGYOrdered By: SYSTEM SYSTEM on 09-05-2024 Basophils/100 [...] [Mass/Vol] 3.8 g/dL Normal 3.3-5.[address] [facility] Comment on above: Performed By: #### 2 402800 #### [facility] [address] [place] [address] Albumin/Globulin (S) [Mass conc ratio] 1.5 Normal 1.1-2.[address] [facility] Comment on above: Performed By: #### 2 086380 #### [facility] [address] [place] [address] ALP [Catalytic activity/Vol] 80 Int._Unit/L Normal 21-[address] [facility] Comment on above: Performed By: #### 2 902183 #### [facility] [address] [place] [address] ALT No additional P-5'-P [Catalytic activity/Vol] 20 Int._Unit/L Normal 6-[address] [facility] Comment on above: Performed By: #### 2 063675 #### [facility] [address] [place] [address] AST [Catalytic activity/Vol] 15 Int._Unit/L Normal 5-[address] [facility] Comment on above: Performed By: #### 2 493177 #### [facility] [address] [place] [address] Bilirubin [Mass/Vol] 0.6 mg/dL Normal 0.0-1.1 [facility] Comment on above: Performed By: #### 2 666429 #### [facility] [address] [place] [address] Bilirubin.direct [Mass/Vol] 0.1 mg/dL Normal 0.0-0.[address] [facility] Comment on above: Performed By: #### 2 988411 #### [facility] [address] [place] [address] Bilirubin.indirect [Mass or moles/Vol] 0.5 mg/dL Normal 0.1-0.[address] [facility] Comment on above: Performed By: #### 2 924713 #### [facility] [address] [place] [address] Globulin (S) [Mass/Vol] 2.6 g/dL Normal 1.4-4.[address] [facility] Comment on above: Performed By: #### 2 646605 #### [facility] [address] [place] [address] Protein [Mass/Vol] 6.4 g/dL Normal 6.0-7.[address] [facility] Comment on above: Performed By: #### 2 269285 #### [facility] [address] [place] [address] Influenza A&B Agon Influenzae A Ag Negative Normal Negative [facility] Comment on above: Performed By: #### 1 [id number] #### [facility] [address] [place] [address] Influenzae B Ag Negative Normal Negative [facility] Comment on above: Result Comment: Test sensitivity and specificity vary for age group, specimen type, antigen types, and prevalence of disease. Test results must be evaluated in conjunction with other clinical data available to the physician. Individuals who received nasally administered Influenza A vaccine may have positive test results up to 3 days after vaccination. Performed By: #### 1 [id number] #### [facility] [address] [place] [address] Inpatient Clinical Summaryon 09-05-2024 Inpatient Clinical Summary Inpatient Clinical Summary [address] [address] Clinical Summary Person Information Name: TAWNYA HERRING [facility] Age: 29 Years : 1995 Sex: Female PCP: DARWIN JONES CNP Marital Status: Single Phone: [phone] Race: White Ethnicity: Non- or Language: Grenadian Visit Id: Visit Reason: Abdominal pain - ; Vomiting - ; Syncope/Near syncope; PASSED OUT HIT HEAD,NAUSEA DIARRHEA VOMITING 30 WKS PREG Speciality: Acuity: Obs Enc Type: Observation Med Service: Obstetrics Arrival: 09/05/2024 03:02:46 Discharge: 09/05/2024 15:50:00 Dispo Type: Home (Routine DC) Address: [address] [place] [phone] Provider Notes: Diagnosis: Dehydration; Diarrhea, unspecified; Nausea, [...] range between ( 80.0 and 100.0 ) Spink Auto: 4.7 % -- Normal range between ( 4.0 and 14.0 ) MPV: 8.3 fL -- Normal range between ( 6.4 and 10.8 ) Neutro Auto: 87.6 % -- Normal range between ( 36.0 and 75.0 ) Platelet: 324.0 E9/L -- Normal range between ( 150.0 and 500.0 ) WBC: 15.6 E9/L -- Normal range between ( 4.0 and 11.0 ) Spink Absolute: 0.7 E9/L -- Normal range between [...] not included)... Normal [facility] Inpatient Patient Summaryon 09-05-2024 Inpatient Patient Summary Inpatient Patient Summary [place] [id number] Patient Discharge Instructions PERSON INFORMATION Name: TAWNYA HERRING Date of : 1995 Current Date: 09/05/2024 16:15:55 PHYSICIANS Admitting Physician: Rogelio Nath MD Primary Care Physician: DARWIN JONES CNP PCP Phone Number: [phone] Comment: Discharge Diagnosis: Dehydration; Diarrhea, unspecified; Nausea, [...] Follow up: With: Address: When: Brain [address] [facility], [address] [place] [address] [place] [address] Business (1) In 2 days 09/07/2024 Comments: 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 Medicines ??? Take spry-mpx-jjoaubu and prescription medicines only as told by [...] not included)... Normal [facility] Lipase Levelon 09-05-2024 Lipase [Catalytic activity/Vol] 18 U/L Normal 13-[address] [facility] Comment on above: Performed By: #### 2 [id number] #### [facility] Laboratory [address] [place] [address] MICRO OTHER TESTSOrdered By: Barrington Maxwell on 09-05-2024 Influenzae A Ag Negative (09/05/24 3:34 AM) Normal Negative [facility] Man Sero Influenzae B Ag Negative 3 (09/05/24 3:34 AM) Normal Negative [facility] Man Sero Comment on above: Interpretive Data: [...] 2.70 pg/mL Low 10.10-27.[address] [facility] Comment on above: Result Comment: The 95% CI (Confidence Interval) PPV (Positive Predictive Value) for myocardial infarction in females is 38 pg/mL, in males 51 pg/mL. The results should be used in conjunction with clinical conditions of myocardial infarction. (Access High Sensitivity Troponin I Instructions For Use, Nathen Paterson, March 2018) Performed By: #### 1 [id number] #### [facility] Laboratory [address] [place] [address] UA with Cult Rflxon 09-05-19 25 Bacteria Auto Ql (U) Trace Normal Trace Fish [facility] Comment on above: Performed By: #### 4 [id number] #### [facility] [address] [place] [address] Bilirubin Ql (U) 1+ mg/dL Abnormal Negative [facility] Comment on above: Performed By: #### 4 [id number] #### [facility] [address] [place] [address] Clarity (U) Turbid Abnormal Clear [facility] Comment on above: Performed By: #### 4 [id number] #### [facility] [address] [place] [address] Color (U) Dark-Yellow Abnormal Yellow [facility] Comment on above: Result Comment: Micr oscopic readings are only performed on those samples that meet specific criteria set forth by [facility]. Performed By: #### 4 [id number] #### [facility] [address] [place] [address] Epithelial cells.squamous Auto (Urine sed) [#/Area] 5-8 Invalid Interpretation Code [facility] Comment on above: Performed By: #### 4 [id number] #### [facility] [address] [place] [address] Glucose Ql (U) Trace Abnormal Negative [facility] Comment on above: Performed By: #### 4 [id number] #### [facility] [address] [place] [address] Hemoglobin Auto test strip (U) [Mass/Vol] Negative Normal Negative [facility] Comment on above: Performed By: #### 4 [id number] #### [facility] [address] [place] [address] Ketones Auto test strip Ql (U) 1+ mg/dL Abnormal Negative [facility] Comment on above: Performed By: #### 4 [id number] #### [facility] [address] [place] [address] Leukocyte esterase Auto test strip Ql (U) 25 Chaparrita/uL Normal Negative [facility] Comment on above: Performed By: #### 4 [id number] #### [facility] [address] [place] [address] Mucus Auto Ql (U) 4+ [id number] Abnormal Negative [facility] Comment on above: Performed By: #### 4 [id number] #### [facility] [address] [place] [address] Nitrite Auto test strip Ql (U) 1+ mg/dL Abnormal Negative [facility] Comment on above: Performed By: #### 4 [id number] #### [facility] [address] [place] [address] pH (U) 5.5 [pH] Invalid Interpretation Code 5.0-9.[address] [facility] Comment on above: Performed By: #### 4 [id number] #### [facility] [address] [place] [address] Protein Ql (U) 1+ mg/dL Abnormal Negative [facility] Comment on above: Performed By: #### 4 [id number] #### [facility] [address] [place] [address] RBC Ql (U) 0-3 Normal 0-[address] [facility] Comment on above: Performed By: #### 4 [id number] #### [facility] [address] [place] [address] Specific gravity (U) [Rel density] 1.029 Invalid Interpretation Code 1.005-1.[address] [facility] Comment on above: Performed By: #### 4 [id number] #### [facility] [address] [place] [address] Urobilinogen (U) [Mass/Vol] 2 mg/dL Abnormal Negative [facility] Comment on above: Performed By: #### 4 [id number] #### [facility] [address] [place] [address] WBC Auto (Urine sed) [#/Area] 0-5 Normal 0-[address] [facility] Comment on above: Performed By: #### 4 [id number] #### [facility] [address] [place] [address] Type of Urine collection method Clean Catch Normal [facility] Comment on above: Performed By: #### 4 [id number] #### [facility] [address] [place] [address] URINALYSISOrdered By: SYSTEM SYSTEM on 09-05-2024 Bacteria [...] specific criteria set forth by [facility]. Epithelial cells.squamous Auto (Urine sed) [...] 2 mg/dL Invalid Interpretation Code Negativemg /dL [facility] UA Auto SS WBC Auto (Urine sed) [#/Area] 0-5 graded/HPF Normal 0-5graded/ HPF [facility] UA Auto SS URINALYSISOrdered By: Rica Islas on 09-05-2024 UA Spec Desc Clean Catch (09/05/24 5:25 AM) Normal [facility] UA Auto SS eGFRon 09-05-2024 eGFR 138 mL/min/1.73 m2 Normal >=[address] [facility] Comment on above: Performed By: #### 1 [id number] #### [facility] [address] [place] [address] ALL CBC WITH AUTO DIFFon BASOPHILS ABSOLUTE AUTO 0 [facility] Basophils/100 WBC (Bld) 0.2 % 0.2 - 2.0 % [facility] Eosinophils/100 WBC (Bld) 0.8 % Low 0.9 - 7.0 % [facility] Erythrocyte distribution width (RBC) [Ratio] 12.1 % 11.0 - 15.0 % [facility] Hematocrit (Bld) [Volume fraction] 33.9 % Low 36.0 - 48.0 % [facility] Hemoglobin (Bld) [Mass/Vol] 11.6 g/dL Low 12.0 - 16.0 g/dL [facility] IMMATURE GRANULOCYTES ABS AUTO 0.03 [facility] Immature granulocytes/100 WBC (Bld) 0.3 % 0.0 - 0.5 % [facility] Interpretation and review of laboratory results Abnormal [facility] LYMPHOCYTES ABSOLUTE AUTO 1.8 [facility] Lymphocytes/100 WBC (Bld) 19.8 % Low 20.5 - 60.0 % [facility] MCH (RBC) [Entitic mass] 32.9 pg 26.7 - 34.0 pg [facility] MCHC (RBC) [Mass/Vol] 34.2 g/dL 29.9 - 35.2 g/dL [facility] MCV (RBC) [Entitic vol] 96 fL 81.0 - 99.0 fL [facility] MONOCYTES ABSOLUTE AUTO 0.5 [facility] Monocytes/100 WBC (Bld) 5.4 % 1.7 - 12.0 % [facility] NEUTROPHILS ABSOLUTE AUTO 6.6 High [facility] Neutrophils/100 WBC (Bld) 73.5 % 43.0 - 75.0 % [facility] Platelet mean volume (Bld) [Entitic vol] 10.2 fL 9.5 - 13.5 fL [facility] TBH EO # 0.1 [facility] PLT 287 [facility] RBC 3.53 Low [facility] WBC 9 [facility] Basophils Auto (Bld) [#/Vol] on 08-25-2024 Basophils (Bld) [#/Vol] Automated basophil count 0.0-0.1 [facility] Basophils/100 WBC Auto (Bld) on 08-25-2024 Basophils/100 WBC (Bld) Automated basophil % 0.2-2.0 [facility] Eosinophils/100 WBC Auto (Bl d)on 08-25-2024 Eosinophils/100 WBC (Bld) Automated eosinophil % Low 0.9-7.0 [facility] Erythrocyte distribution wid th Auto (RBC) [Ratio]on 08-25-2024 Erythrocyte distribution width (RBC) [Ratio] Erythrocyte distribution width [Ratio] by Automated count 11.0-15.0 [facility] FPG ECG *CARDIOLOGY ONLY*on 08-25-2024 FPG ECG *CARDIOLOGY ONLY* [facility] [place] [address] Electrocardiograph Report Signed Patient: Tanwya Herring MR#: [id number] 29 : 1995 Acct:[id number] Age/Sex: 29 / F ADM Date: 08/25/24 [facility]: [facility] Room: Type: [facility] Attending Dr: Mary Ellen Bruce MD [...] Normal ECG Confirmed by Mary Ellen Bruce ([id number]) on 08/25/2024 1:42:57 PM Referred By: Electronically Signed By: Mary Ellen Bruce Transcribed By: MUS Signed By Mary Ellen Bruce MD 5 1342 Normal [facility] Hematocrit Auto (Bld) [Volum e fraction]on 08-25-2024 Hematocrit (Bld) [Volume fraction] Hematocrit [Volume Fraction] of Blood by Automated count Low 36.0-48.0 [facility] Hemoglobin [Mass/volume] in Bloodon 08-25-2024 Hemoglobin (Bld) [Mass/Vol] Hemoglobin [Mass/volume] in Blood Low 12.0-16.0 [facility] Laboratory - Chemistry and C hemistry - challengeon 08-25-2024 Glucose [Mass/Vol] 131 mg/dL High <130 [facility] Laboratory - Hematology and Cell countson 08-25-2024 Immature granulocytes/100 WBC (Bld) 0.3 % 0.0-0.5 [facility] Leukocytes [#/volume] correc hamilton for nucleated erythrocytes in Blood by Automated counon 08-25-2024 WBC corrected for nucl RBC Auto (Bld) [#/Vol] Leukocytes [#/volume] corrected for nucleated erythrocytes in Blood by Automated coun 4.0-11.0 [facility] Lymphocytes Auto (Bld) [#/Vo l]on 08-25-2024 Lymphocytes (Bld) [#/Vol] Lymphocytes [#/volume] in Blood by Automated count 1.2-3.8 [facility] Lymphocytes/100 WBC Auto (Bl d)on 08-25-2024 Lymphocytes/100 WBC (Bld) Lymphocytes/100 leukocytes in Blood by Automated count Low 20.5-60.0 [facility] MCH Auto (RBC) [Entitic mass ]on 08-25-2024 MCH (RBC) [Entitic mass] MCH [Entitic mass] by Automated count 26.7-34.0 [facility] MCHC Auto (RBC) [Mass/Vol]on 08-25-2024 MCHC (RBC) [Mass/Vol] MCHC [Mass/volume] by Automated count 29.9-35.2 [facility] MCV Auto (RBC) [Entitic vol] on 08-25-2024 MCV (RBC) [Entitic vol] MCV [Entitic volume] by Automated count 81.0-99.0 [facility] Monocytes Auto (Bld) [#/Vol] on 08-25-2024 Monocytes (Bld) [#/Vol] Automated blood monocyte count 0.3-0.8 [facility] Monocytes/100 WBC Auto (Bld) on 08-25-2024 Monocytes/100 WBC (Bld) Automated monocyte % 1.7-12.0 [facility] Neutrophils Auto (Bld) [#/Vo l]on 08-25-2024 Neutrophils (Bld) [#/Vol] Neutrophils [#/volume] in Blood by Automated count High 1.4-6.5 [facility] Neutrophils/100 WBC Auto (Bl d)on 08-25-2024 Neutrophils/100 WBC (Bld) Automated neutrophil % 43.0-75.0 [facility] No Panel Informationon 08-25 Eosinophils # (Auto) 0.1 10 3/uL 0.0-0.7 [facility] Immature Granulocyte # (Auto) 0.03 10 3/uL 0.00-0.03 [facility] Platelet mean volume Auto (B ld) [Entitic vol]on 08-25-2024 Platelet mean volume (Bld) [Entitic vol] Platelet mean volume [Entitic volume] in Blood by Automated count 9.5-13.5 [facility] Platelets Auto (Bld) [#/Vol] on 08-25-2024 Platelets (Bld) [#/Vol] Platelets [#/volume] in Blood by Automated count 150-450 [facility] RBC Auto (Bld) [#/Vol]on RBC (Bld) [#/Vol] Erythrocytes [#/volu me] in Blood by Automated count Low 4.20-5.40 [facility] Urinalysis macro (dipstick) panel (U)on 08-23-2024 Bilirubin, UA Negative Negative - 4(70) +++ mg/dL [facility] Blood, UA Negative Negative - 50 Dain/mcL [facility] Clarity, UA Clear [facility] Color, UA Yellow [facility] Glucose, UA Negative Negative - 2000(110) ++++ mg/dL [facility] Interpretation and review of laboratory results Abnormal [facility] Ketones, UA Negative Negative - 160(16) ++++ mg/dL [facility] Leukocytes, UA Positive Negative - 500+++ Chaparrita/mcL [facility] Comment on above: small Nitrite, UA Negative Negative - Positive [facility] pH, UA 7 5 - 9 [facility] Protein, UA Negative Negative - 1999(20) ++++ mg/dL [facility] Healthcare Spec Grav, UA 1.02 1 - 1.03 [facility] Urobilinogen, UA 0.2 0.2 - 12 mg/dL [facility] Thyroid Stimulating Hormoneo n 07-31-2024 TSH Qn 2.07 m[IU]/L Normal 0.45-5.33 [facility] Comment on above: Result Comment: PERF ORMED BY: [facility] [address] [place] [address] PATHOLOGIST SOLAR ENERGY SPECIALIST MIS SCHMIDT M.D. Performed By: #### T SH3 ####[facility] [id number] [place] [address] [facility] Thyrotropin [Units/volume] i n Serum or PlasmaOrdered By: Brain Way on 07-31-2024 TSH Qn Thyrotropin [Units/v olume] in Serum or Plasma 0.45-5.33 [facility] Urinalysis macro (dipstick) panel (U)on 07-11-2024 Bilirubin, UA Negative Negative - 4(70) +++ mg/dL [facility] Blood, UA Negative Negative - 50 Dain/mcL [facility] Clarity, UA Clear [facility] Color, UA Yellow [facility] Glucose, UA Negative Negative - 1999(110) ++++ mg/dL [facility] Interpretation and review of laboratory results Abnormal [facility] Ketones, UA Negative Negative - 160(16) ++++ mg/dL [facility] Leukocytes, UA Trace Negative - 500+++ Chaparrita/mcL [facility] Nitrite, UA Negative Negative - Positive [facility] pH, UA 6 5 - 9 [facility] Protein, UA Negative Negative - 1999(20) ++++ mg/dL [facility] Spec Grav, UA 1.01 1 - 1.03 [facility] Urobilinogen, UA 0.2 0.2 - 12 mg/dL [facility] Alpha-fetoprotein (AFP) luis urement (wyhzjauw-ud-ydrspo)Ordered By: Brain Way on 06-28-2024 AFP [MoM] Alpha-fetoprotein (A FP) measurement (kmjavtxe-dm-tvlbuj) . [facility] Determination of gestational ageOrdered By: Brain Way on 06-28-2024 Gestational age Assess gestational age . [facility] Estimation of maternal age-s pecific risk of Down syndrome birthOrdered By: Brain Way on 06-28-2024 Age [Time] Estimation of matern al age-specific risk of Down syndrome . [facility] Human chorionic gonadotropin (hCG) multiple of median measurementOrdered By: Brainjonathan Way on 06-28-2024 HCG [MoM] Human chorionic gonadotropin (hCG) multiple of median measurement . [facility] Insulin dependent diabetes m ellitus detectionOrdered By: Brain Way on 06-28-2024 Insulin dependent diabetes mellitus Ql Insulin dependent diabetes mellitus detection . [facility] Interpretation of serum or p lasma second trimester quad maternal screen (narrative reOrdered By: Brain Way on 06-28-2024 Second trimester quad maternal screen Mathew [Interp] Interpretation of serum or plasma second trimester quad maternal screen (narrative re . [facility] Comment on above: Interpretation:An in terpretation CANNOT be provided for this patientbecause necessary patient information was not provided (oneor more of: gestational age, weight, or patient age).Please call us with new clinical information.Recalculations are not recommended when gestational datingby LMP and ultrasound are within 10 days. No Panel InformationOrdered By: Brain Way on 06-28-2024 AFP Triple Screen Comment Comment . [facility] Comment on above: Stephanie Pinto , Ph.D., DABCCDirectorReferences: Available Upon Request.Multiples Of Median Cutoffs Abbreviation Definitions For AFP Elevations IDD- Insulin Dep DiabetesSingleton 2.5 Black 2.8 OSBR- Open Spina BifidaIDD 2.0 Twins 4.5 RiskDSR Cutoff 1:270 DSR- Down Syndrome RiskT18 Cutoff 1:100 T18- Trisomy 18For further inquiries contact [facility] Servicesat [phone].This test was developed and its performance characteristicsdetermined by [employer]. It has not been cleared or approvedby the Food and Drug Administration.Performed at: [facility] [id number] [place], [place] [id number] Director: Aubrey Moreno [facility], Phone: [phone] Alpha Fetoprotein Results Received Report . [facility] Down Syndrome Age Equivalent See interpretation. . [facility] Gestational Age Calculation Method Ultrasound . [facility] Comment on above: 18:5 on 06/12/2024 Maternal Quad Test Risk See interpretation. . [facility] Maternal Race . [facility] Multiple No . [facility] Serum or plasma tjewb-1-faxh protein measurement (mass/volume)Ordered By: Brain Way on 06-28-2024 AFP [Mass/Vol] Serum or plasma ztlmp-4-zglqukugvys measurement (mass/volume) . [facility] Serum or plasma inhibin A me asurement (adjusted qapjowzd-ey-pmtcjf)Ordered By: Brain Way on 06-28-2024 Inhibin A adjusted [MoM] Serum or plasma inhibin A measurement (adjusted ddwbwacf-ei-abrvfg) . [facility] Serum or plasma inhibin A me asurement (mass/volume)Ordered By: Brain Way on 06-28-2024 Inhibin A [Mass/Vol] Inhibin A [Mass/vol ume] in Serum or Plasma . [facility] Serum or plasma total combin ed intact choriogonadotropin and beta subunit measurementOrdered By: Brain Way on 06-28-2024 HCG.intact+Beta subunit Qn Serum or plasma total combined intact choriogonadotropin and beta subunit measurement . [facility] Serum or plasma unconjugated estriol (E3) measurement (adjusted umppxrxv-qk-ghyjic)Ordered By: Brain Way on 06-28-2024 E3.unconjugated adjusted [MoM] Serum or plasma unconjugated estriol (E3) measurement (adjusted zmawcnoo-eg-rmnevy) . [facility] Serum or plasma unconjugated estriol (E3) measurement (mass/volume)Ordered By: Brain Way on 06-28-2024 E3.unconjugated [Mass/Vol] Serum or plasma unconjugated estriol (E3) measurement (mass/volume) . [facility] Thyroid Stimulating Hormoneo n 06-28-2024 TSH Qn 3.44 m[IU]/L Normal 0.45-5.33 [facility] Comment on above: Result Comment: PERF ORMED BY: [place] [address] PATHOLOGIST SOLAR ENERGY SPECIALIST JORDI SMITH M.D. Performed By: #### T SH3 #### [address] Thyrotropin [Units/volume] i n Serum or PlasmaOrdered By: Brain Way on 06-28-2024 TSH Qn Thyrotropin [Units/v olume] in Serum or Plasma 0.45-5.33 [facility] Trisomy 21 risk determinatio n in fetusOrdered By: Brain Way on 06-28-2024 Trisomy 21 risk Qn (fetus) Trisomy 21 risk determination in fetus . [facility] US OB >= 14 weeks Fetuson US OB >= 14 weeks Fetus [facility] [place] [address] [place] [address] Ultrasound Report Signed Patient: Tawnya Herring MR#: [id number] 29 : 1995 Acct:[id number] Age/Sex: 28 / F ADM Date: 06/22/24 Loc: Room: Type: [facility] Attending Dr: Brain Way DO Ordering [...] length. Impression dictated by: Zay Norton Jr., DEfrenOEfren06/22/2024 4:00 PM Dictation Location: [employer] Tech: Rae De Paz Transcribed By: AGUILAR 06/22/24 1600 Dictated By: Zay Norton Jr, DO 06/22/24 1552 Signed By: 06/22/24 1600 Normal [facility] Urinalysis macro (dipstick) panel (U)on 06-12-2024 Bilirubin, UA Negative Negative - 4(70) +++ mg/dL [facility] Blood, UA Negative Negative - 50 Dain/mcL [facility] Clarity, UA Clear [facility] Color, UA Yellow [facility] Glucose, UA Negative Negative - 1999(110) ++++ mg/dL [facility] Interpretation and review of laboratory results Abnormal [facility] Ketones, UA Negative Negative - 160(16) ++++ mg/dL [facility] Leukocytes, UA Positive Negative - 500+++ Chaparrita/mcL [facility] Comment on above: small Nitrite, UA Negative Negative - Positive [facility] pH, UA 6 5 - 9 [facility] Protein, UA Negative Negative - 2000(20) ++++ mg/dL [facility] Spec Grav, UA 1.025 1 - 1.03 [facility] Urobilinogen, UA 1.0 0.2 - 12 mg/dL [facility] Thyrotropin [Units/volume] i n Serum or PlasmaOrdered By: Brain Way on 05-24-2024 TSH Qn 2.42 m[IU]/L Normal 0.45-5.33 [facility] Comment on above: Result Comment: PERF ORMED BY: [facility] [address] [place] [address] PATHOLOGIST SOLAR ENERGY SPECIALIST JORDI SMITH M.D. Performed By: #### T SH3 #### [facility] [address] TSH Qn Thyrotropin [Units/v olume] in Serum or Plasma 0.45-5.33 [facility] Urinalysis macro (dipstick) panel (U)on 05-10-2024 Bilirubin, UA Negative Negative - 4(70) +++ mg/dL [facility] Blood, UA Negative Negative - 50 Dain/mcL [facility] Clarity, UA Clear [facility] Color, UA Yellow [facility] Glucose, UA Negative Negative - 1999(110) ++++ mg/dL [facility] Interpretation and review of laboratory results Normal [facility] Ketones, UA Negative Negative - 160(16) ++++ mg/dL [facility] Leukocytes, UA Negative Negative - 500+++ Chaparrita/mcL [facility] Nitrite, UA Negative Negative - Positive [facility] pH, UA 6.5 5 - 9 [facility] Protein, UA Negative Negative - 2000(20) ++++ mg/dL [facility] Spec Grav, UA 1.020 1 - 1.03 [facility] Urobilinogen, UA 1.0 0.2 - 12 mg/dL [facility] IGP,APTIMA HPV,AGE GDLNon AGE GDLN ACOG TESTING Note . [facility] Comment on above: TESTS RESULT FLAG UN ITS REF RANGE LAB Clinician Provided Cytology Information Source.............Cervix No. of containers..01 ThinPrep Vial Age Algo ACOG Mariel... FLAG LEGEND: L-Low Normal,H-High Normal,LL-Alert Low,HH-Alert High <-Panic Low,>-Panic High,A-Abnormal,AA-Critical Abnormal Performed at: 01 =[facility] [address] Christelle Galan MD, IGP, RFX APTIMA HPV ASCU Note . [facility] Comment on above: TESTS RESULT FLAG UN ITS REF RANGE LAB DIAGNOSIS: 02 NEGATIVE FOR INTRAEPITHELIAL LESION OR MALIGNANCY. Specimen adequacy: 02 Satisfactory for evaluation. Endocervical and/or squamous metaplastic cells (endocervical component) are present. Performed by: Sanjiv Ornelas, Financial Systems Analyst . 02 Note: Note 02 The Pap [...] <-Panic Low,>-Panic High,A-Abnormal,AA-Critical Abnormal Performed at: [address] [address] Christelle Galan MD, Performed at: =[address] [id number] Non Acoustic Operator: Christelle Galan MD, Phone: [phone] Performed at: [address] [id number] Non Acoustic Operator: Christelle Galan MD, Phone: [phone] [facility] URETHRITIS/DISCHARGE PLUS VA GINITIS (HTRX)on 04-22-2024 ATOPOBIUM VAGINAE 0.000 [facility] ATOPOBIUM VAGINAE Not detected [facility] BVAB 2,3 (BACTERIAL VAGINOSIS ASSOCIATED BACTERIA 2, 3); MOBILUNCUS SPP 24.821 Abnormal [facility] BVAB 2,3 (BACTERIAL VAGINOSIS ASSOCIATED BACTERIA 2, 3); MOBILUNCUS SPP Detected Abnormal [facility] JANET ALBICANS, PARAPSILOSIS, TROPICALIS 0.000 [facility] JANET ALBICANS, PARAPSILOSIS, TROPICALIS Not detected [facility] JANET GLABRATA 0.000 [facility] JANET GLABRATA Not detected [facility] JANET KRUSEI 0.000 [facility] JANET KRUSEI Not detected [facility] CHLAMYDIA TRACHOMATIS 0.000 [facility] CHLAMYDIA TRACHOMATIS Not detected [facility] GARDNERELLA VAGINALIS 0.000 [facility] GARDNERELLA VAGINALIS Not detected [facility] Interpretation and review of laboratory results Abnormal [facility] MEGASPHAERA (TYPES 1, 2) 0.000 [facility] MEGASPHAERA (TYPES 1, 2) Not detected [facility] MYCOPLASMA GENITALIUM 0.000 [facility] MYCOPLASMA GENITALIUM Not detected N [facility] NEISSERIA GONORRHOEAE 0.000 [facility] NEISSERIA GONORRHOEAE Not detected N [facility] TRICHOMONAS VAGINALIS 0.000 [facility] TRICHOMONAS VAGINALIS Not detected N [facility] Urinalysis macro (dipstick) panel (U)on 04-20-2024 Bilirubin, UA Negative Negative - 4(70) +++ mg/dL [facility] Blood, UA Positive Negative - 50 Dain/mcL [facility] Comment on above: trace-intact Clarity, UA Clear [facility] Color, UA Yellow [facility] Glucose, UA Negative Negative - 1999(110) ++++ mg/dL [facility] Interpretation and review of laboratory results Abnormal [facility] Ketones, UA Negative Negative - 160(16) ++++ mg/dL [facility] Leukocytes, UA Trace Negative - 500+++ Chaparrita/mcL [facility] Nitrite, UA Negative Negative - Positive [facility] pH, UA 6.0 5 - 9 [facility] Protein, UA Negative Negative - 2000(20) ++++ mg/dL [facility] Spec Grav, UA 1.030 1 - 1.03 [facility] Urobilinogen, UA 0.2 0.2 - 12 mg/dL [facility] CBC without diffon Hematocrit (Bld) [Volume fraction] 37.3 % [facility] Hemoglobin (Bld) [Mass/Vol] 13.3 g/dL [facility] Rbc Mcv (Fl) By Automated Count 92.1 [facility] No Panel Informationon 04-13 [facility] Rubella IGG immune statuson 04-13-2024 Rubella immune IgG 1.33 [facility] Syphilis Total(Unknown Syphi lis Status)on 04-13-2024 Syphilis Non-Reactive [facility] TBH BOX TEST SENT OUTon 03-17 BOX TEST SENT OUT 04/13/24 [facility] Drug Screen, Urineon 024 Amphetamine/Methamphe tamine Negative [facility] Barbiturate Screen Urine Negative [facility] Benzodiazepine Screen, Urine Negative [facility] Cocaine Metabolite Negative [facility] Methadone,Meconium Negative [facility] Opiate Quantitative Urine Negative [facility] Oxycodone Negative [facility] Phencyclidine Negative [facility] Thc Marijuana, Urine Negative [facility] HCG ( test) Ql (U)o n 04-07-2024 Interpretation and review of laboratory results Abnormal [facility] Preg Test, Ur Positive [facility] Urinalysis macro (dipstick) panel (U)on 04-07-2024 Bilirubin, UA Negative Negative - 4(70) +++ mg/dL [facility] Blood, UA Negative Negative - 50 Dain/mcL [facility] Clarity, UA Clear [facility] Color, UA Yellow [facility] Glucose, UA Negative Negative - 1999(110) ++++ mg/dL [facility] Interpretation and review of laboratory results Abnormal [facility] Ketones, UA Negative Negative - 160(16) ++++ mg/dL [facility] Leukocytes, UA Positive Negative - 500+++ Chaparrita/mcL [facility] Comment on above: small Nitrite, UA Negative Negative - Positive [facility] pH, UA 7.0 5 - 9 [facility] Protein, UA Negative Negative - 1999(20) ++++ mg/dL [facility] Spec Grav, UA 1.025 1 - 1.03 [facility] Urobilinogen, UA 0.2 0.2 - 12 mg/dL [facility] Automated basophil %Ordered By: Addi Ortega on 04-06-2024 Basophils/100 WBC (Bld) 0.2 % Normal . [facility] Comment on above: Performed By: #### P ILLAR TSH, PILLAR LIPID, PILLAR CBC, PILLAR BMP #### [facility] [address] Automated basophil countOrde red By: Addi Ortega on 04-06-2024 Basophils (Bld) [#/Vol] 0.0 10*3/uL Normal 0.0-0.2 [facility] Comment on above: Result Comment: PERF ORMED BY: [place] [address] PATHOLOGIST [employer]AR [employer]ER[employer] SPECIALIST JORDI SMITH M.D. Performed By: #### P ILLAR TSH, PILLAR LIPID, PILLAR CBC, PILLAR BMP #### [address] Automated blood monocyte cou ntOrdered By: Addi Ortega on 04-06-2024 Monocytes (Bld) [#/Vol] 0.5 10*3/uL Normal 0.0-0.8 [facility] Comment on above: Performed By: #### P ILLAR TSH, PILLAR LIPID, PILLAR CBC, PILLAR BMP #### [address] Automated eosinophil %Ordere d By: Addi Ortega on 04-06-2024 Eosinophils/100 WBC (Bld) 0.5 % Normal . [facility] Comment on above: Performed By: #### P ILLAR TSH, PILLAR LIPID, PILLAR CBC, PILLAR BMP #### [address] Automated eosinophil countOr dered By: Addi Ortega on 04-06-2024 Eosinophils (Bld) [#/Vol] 0.0 10*3/uL Normal 0.0-0.45 [facility] Comment on above: Performed By: #### P ILLAR TSH, PILLAR LIPID, PILLAR CBC, PILLAR BMP #### [address] Automated monocyte %Ordered By: Addi Ortega on 04-06-2024 Monocytes/100 WBC (Bld) 5.6 % Normal . [facility] Comment on above: Performed By: #### P ILLAR TSH, PILLAR LIPID, PILLAR CBC, PILLAR BMP #### [address] Automated neutrophil %Ordere d By: Addi Ortega on 04-06-2024 Neutrophils/100 WBC (Bld) 64.9 % Normal . [facility] Comment on above: Performed By: #### P ILLAR TSH, PILLAR LIPID, PILLAR CBC, PILLAR BMP #### [address] Basophils Auto (Bld) [#/Vol] Ordered By: Addi Ortega on 04-06-2024 Basophils (Bld) [#/Vol] Automated basophil count 0.0-0.2 [facility] Basophils/100 WBC Auto (Bld) Ordered By: Addi Ortega on 04-06-2024 Basophils/100 WBC (Bld) Automated basophil % . [facility] Calcium [Mass/volume] in Ser um or PlasmaOrdered By: Addi Ortega on 04-06-2024 Calcium [Mass/Vol] 8.9 mg/dL Normal 8.6-10.3 [facility] Comment on above: Performed By: #### P ILLAR TSH, PILLAR LIPID, PILLAR CBC, PILLAR BMP #### [facility] [address] Calcium [Mass/Vol] Calcium [Mass/volume ] in Serum or Plasma 8.6-10.3 [facility] Carbon dioxide, total [Moles /volume] in Serum or PlasmaOrdered By: Addi Ortega on 04-06-2024 CO2 [Moles/Vol] 22.0 mmol/L Normal 21.0-31.0 [facility] Comment on above: Performed By: #### P ILLAR TSH, PILLAR LIPID, PILLAR CBC, PILLAR BMP #### [facility] [address] CO2 [Moles/Vol] Carbon dioxide, tota l [Moles/volume] in Serum or Plasma 21.0-31.0 [facility] Chloride [Moles/volume] in S ghada or PlasmaOrdered By: Addi Ortega on 04-06-2024 Chloride [Moles/Vol] 106 mmol/L Normal 98-107 [facility] Comment on above: Performed By: #### P ILLAR TSH, PILLAR LIPID, PILLAR CBC, PILLAR BMP #### [facility] [address] [place] [address] [place] Chloride [Moles/Vol] Chloride [Moles/vol ume] in Serum or Plasma 98-107 [facility] Cholesterol [Mass/volume] in Serum or PlasmaOrdered By: Addi Ortega on 04-06-2024 Cholesterol [Mass/Vol] 159 mg/dL Normal 140-200 [facility] Comment on above: Chol less than 200 m g/dl low riskChol 201-239 mg/dl borderline riskChol 240 mg/dl and greater high risk Result Comment: Chol less than 200 mg/dl low risk Chol 201-239 mg/dl borderline risk Chol 240 mg/dl and greater high risk Performed By: #### P ILLAR TSH, PILLAR LIPID, PILLAR CBC, PILLAR BMP #### [facility] [address] Cholesterol [Mass/Vol] Cholesterol [Mass/volume] in Serum or Plasma 140-200 [facility] Comment on above: Chol less than 200 m g/dl low riskChol 201-239 mg/dl borderline riskChol 240 mg/dl and greater high risk Cholesterol in HDL [Mass/vol ume] in Serum or PlasmaOrdered By: Addi Ortega on 04-06-2024 Cholesterol in HDL [Mass/Vol] Serum or plasma high density lipoprotein (HDL) cholesterol measurement 23- [facility] Comment on above: HDL CHOL ATP-III CLA SSIFICATION Cardiovascular RiskHDL > or equal to 60 mg/dL LOWHDL < 40 mg/dL HIGH Cholesterol in LDL Calc [Mas s/Vol]Ordered By: Addi Ortega on 04-06-2024 Cholesterol in LDL [Mass/Vol] 95 mg/dL 0-100 [facility] Comment on above: LDL ATP III CLASSIFI CATIONLDL less than 100 mg/dL OptimalLDL 100-129 mg/dL Near or above optimalLDL 130-159 mg/dL Borderline highLDL 160-189 mg/dL HighLDL greater than 189 mg/dL Very high Cholesterol in LDL [Mass/Vol] Cholesterol in LDL [Mass/volume] in Serum or Plasma by calculation 0-100 [facility] Comment on above: LDL ATP III CLASSIFI CATIONLDL less than 100 mg/dL OptimalLDL 100-129 mg/dL Near or above optimalLDL 130-159 mg/dL Borderline highLDL 160-189 mg/dL HighLDL greater than 189 mg/dL Very high Cholesterol in VLDL Calc [Ma ss/Vol]Ordered By: Addi Ortega on 04-06-2024 Cholesterol in VLDL [Mass/Vol] 15 mg/dL [facility] Cholesterol in VLDL [Mass/Vol] Cholesterol in VLDL [Mass/volume] in Serum or Plasma by calculation [facility] Creatinine [Mass/volume] in Serum or PlasmaOrdered By: Addi Ortega on 04-06-2024 Creatinine [Mass/Vol] 0.44 mg/dL Low 0.60-1.20 [facility] Comment on above: Performed By: #### P ILLAR TSH, PILLAR LIPID, PILLAR CBC, PILLAR BMP #### [facility] [address] [place] [address] Creatinine [Mass/Vol] Creatinine [Mass/v olume] in Serum or Plasma Low 0.60-1.20 [facility] Employee Basic Metabolic Suero nargis 04-06-2024 GFR/1.73 sq M.predicted MDRD (S/P/Bld) [Vol rate/Area] mL/min/{1.73_m2} Normal [facility] Comment on above: Performed By: #### P ILLAR TSH, PILLAR LIPID, PILLAR CBC, PILLAR BMP #### [facility] [address] [place] [address] Employee Complete Blood Coun ton 04-06-2024 Mean Corpuscular HGB Conc 35.4 g/dL High 32.0-35.0 [facility] Comment on above: Performed By: #### P ILLAR TSH, PILLAR LIPID, PILLAR CBC, PILLAR BMP #### [address] NRBC% 0.0 /100{WBC} Normal 0-0.5 [facility] Comment on above: Performed By: #### P ILLAR TSH, PILLAR LIPID, PILLAR CBC, PILLAR BMP #### [address] Employee Lipid Profileon LDL Cholesterol,Calculate d [...] PILLAR LIPID, PILLAR CBC, PILLAR BMP #### [facility] [address] Triglyceride w/Reflex 79 mg/dL Normal 0-149 [...] PILLAR LIPID, PILLAR CBC, PILLAR BMP #### [facility] [address] VLDL CHOLESTEROL 15 mg/dL Normal [facility] Comment on above: Performed By: #### P ILLAR TSH, PILLAR LIPID, PILLAR CBC, PILLAR BMP #### [facility] [address] Employee Thyroid Stim Hormon gokul 04-06-2024 Employee Thyroid Stim Hormone 2.72 u[iU]/mL Normal 0.45-5.33 [facility] Comment on above: Result Comment: PERF ORMED BY: [place] [address] PATHOLOGIST [employer]ER[employer] SPECIALIST JORDI SMITH M.D. Performed By: #### P ILLAR TSH, PILLAR LIPID, PILLAR CBC, PILLAR BMP #### [facility] [address] Eosinophils Auto (Bld) [#/Vo l]Ordered By: Addi Ortega on 04-06-2024 Eosinophils (Bld) [#/Vol] Automated eosinophil count 0.0-0.[address] [facility] Eosinophils/100 WBC Auto (Bl d)Ordered By: Addi Ortega on 04-06-2024 Eosinophils/100 WBC (Bld) Automated eosinophil % . [facility] Erythrocyte distribution wid th Auto (RBC) [Ratio]Ordered By: Addi Ortega on 04-06-2024 Erythrocyte distribution width (RBC) [Ratio] Erythrocyte distribution width [Ratio] by Automated count 11.9-15.3 [facility] Erythrocyte distribution wid th [Ratio] by Automated countOrdered By: Addi Ortega on 04-06-2024 Erythrocyte distribution width (RBC) [Ratio] 12.7 % Normal 11.9-15.3 [facility] Comment on above: Performed By: #### P ILLAR TSH, PILLAR LIPID, PILLAR CBC, PILLAR BMP #### [facility] [address] [place] [id number] [place] Erythrocytes [#/volume] in B lood by Automated countOrdered By: Addi Ortega on 04-06-2024 RBC (Bld) [#/Vol] 4.04 10*6/uL Normal 3.60-5.[address] [facility] Comment on above: Performed By: #### P ILLAR TSH, PILLAR LIPID, PILLAR CBC, PILLAR BMP #### [facility] [address] [place] [address] [place] Glucose [Mass/volume] in Ser um or PlasmaOrdered By: Addi Ortega on 04-06-2024 Glucose [Mass/Vol] 82 mg/dL Normal 70-100 [facility] Comment on above: Performed By: #### P ILLAR TSH, PILLAR LIPID, PILLAR CBC, PILLAR BMP #### [facility] [address] [place] [id number] [place] Glucose [Mass/Vol] Glucose [Mass/volume ] in Serum or Plasma 70-100 [facility] Hematocrit Auto (Bld) [Volum e fraction]Ordered By: Addi Ortega on 04-06-2024 Hematocrit (Bld) [Volume fraction] Hematocrit [Volume Fraction] of Blood by Automated count 34.0-46.4 [facility] Hematocrit [Volume Fraction] of Blood by Automated countOrdered By: Addi Ortega on 04-06-2024 Hematocrit (Bld) [Volume fraction] 37.6 % Normal 34.0-46.4 [facility] Comment on above: Performed By: #### P ILLAR TSH, PILLAR LIPID, PILLAR CBC, PILLAR BMP #### [facility] [address] [place] [id number] [place] Hemoglobin [Mass/volume] in BloodOrdered By: Addi Ortega on 04-06-2024 Hemoglobin (Bld) [Mass/Vol] 13.3 g/dL Normal 11.8-15.4 [facility] Comment on above: Performed By: #### P ILLAR TSH, PILLAR LIPID, PILLAR CBC, PILLAR BMP #### [facility] [address] [place] [address] [place] Hemoglobin (Bld) [Mass/Vol] Hemoglobin [Mass/volume] in Blood 11.8-15.4 [facility] Leukocytes [#/volume] correc hamilton for nucleated erythrocytes in Blood by Automated counOrdered By: Addi Ortega on 04-06-2024 WBC corrected for nucl RBC Auto (Bld) [#/Vol] 8.9 10*3/uL 3.8-11.6 [facility] WBC corrected for nucl RBC Auto (Bld) [#/Vol] Leukocytes [#/volume] corrected for nucleated erythrocytes in Blood by Automated coun 3.8-11.6 [facility] Leukocytes [#/volume] in Blo od by Automated countOrdered By: Addi Ortega on 04-06-2024 WBC (Bld) [#/Vol] 8.9 10*3/uL Normal 3.8-11.6 [facility] Comment on above: Performed By: #### P ILLAR TSH, PILLAR LIPID, PILLAR CBC, PILLAR BMP #### [place] [address] [place] Lymphocytes Auto (Bld) [#/Vo l]Ordered By: Addi Ortega on 04-06-2024 Lymphocytes (Bld) [#/Vol] Lymphocytes [#/volume] in Blood by Automated count 1.00-4.8 [facility] Lymphocytes [#/volume] in Bl ood by Automated countOrdered By: Addi Ortega on 04-06-2024 Lymphocytes (Bld) [#/Vol] 2.5 10*3/uL Normal 1.00-4.8 [facility] Comment on above: Performed By: #### P ILLAR TSH, PILLAR LIPID, PILLAR CBC, PILLAR BMP #### [facility] [address] [place] [address] [place] Lymphocytes/100 WBC Auto (Bl d)Ordered By: Addi Ortega on 04-06-2024 Lymphocytes/100 WBC (Bld) Lymphocytes/100 leukocytes in Blood by Automated count . [facility] Lymphocytes/100 leukocytes i n Blood by Automated countOrdered By: Addi Ortega on 04-06-2024 Lymphocytes/100 WBC (Bld) 28.8 % Normal . [facility] Comment on above: Performed By: #### P ILLAR TSH, PILLAR LIPID, PILLAR CBC, PILLAR BMP #### [facility] [address] MCH Auto (RBC) [Entitic mass ]Ordered By: Addi Ortega on 04-06-2024 MCH (RBC) [Entitic mass] MCH [Entitic mass] by Automated count 24.7-34.3 [facility] MCH [Entitic mass] by Automa hamilton countOrdered By: Addi Ortega on 04-06-2024 MCH (RBC) [Entitic mass] 32.9 pg Normal 24.7-34.3 [facility] Comment on above: Performed By: #### P ILLAR TSH, PILLAR LIPID, PILLAR CBC, PILLAR BMP #### [facility] [address] MCHC Auto (RBC) [Mass/Vol]Or dered By: Addi Ortega on 04-06-2024 MCHC (RBC) [Mass/Vol] 35.4 g/dL High 32.0-35.0 [facility] MCHC (RBC) [Mass/Vol] MCHC [Mass/volume] by Automated count High 32.0-35.0 [facility] MCV Auto (RBC) [Entitic vol] Ordered By: Addi Ortega on 04-06-2024 MCV (RBC) [Entitic vol] MCV [Entitic volume] by Automated count 80-100 [facility] MCV [Entitic volume] by Auto mated countOrdered By: Addi Ortega on 04-06-2024 MCV (RBC) [Entitic vol] 93.2 fL Normal 80-100 [facility] Comment on above: Performed By: #### P ILLAR TSH, PILLAR LIPID, PILLAR CBC, PILLAR BMP #### [facility] [address] [place] [id number] [place] Monocytes Auto (Bld) [#/Vol] Ordered By: Addi Ortega on 04-06-2024 Monocytes (Bld) [#/Vol] Automated blood monocyte count 0.0-0.8 [facility] Monocytes/100 WBC Auto (Bld) Ordered By: Addi Ortega on 04-06-2024 Monocytes/100 WBC (Bld) Automated monocyte % . [facility] Neutrophils Auto (Bld) [#/Vo l]Ordered By: Addi Ortega on 04-06-2024 Neutrophils (Bld) [#/Vol] Neutrophils [#/volume] in Blood by Automated count 1.8-7.7 [facility] Neutrophils [#/volume] in Bl ood by Automated countOrdered By: Addi Ortega on 04-06-2024 Neutrophils (Bld) [#/Vol] 5.8 10*3/uL Normal 1.8-7.7 [facility] Comment on above: Performed By: #### P ILLAR TSH, PILLAR LIPID, PILLAR CBC, PILLAR BMP #### [facility] [address] Neutrophils/100 WBC Auto (Bl d)Ordered By: Addi Ortega on 04-06-2024 Neutrophils/100 WBC (Bld) Automated neutrophil % . [facility] No Panel InformationOrdered By: Addi Ortega on 04-06-2024 Estimated GFR (CKD-EPI) > 60.0 mL/Min [facility] Creatinine Clearance (Chem N/A [facility] Nucleated erythrocytes [Pres ence] in Blood by Automated countOrdered By: Addi Ortega on 04-06-2024 Nucleated RBC Auto Ql (Bld) 0.0 /100{WBC} 0-0.5 [facility] Nucleated RBC Auto Ql (Bld) Nucleated erythrocytes [Presence] in Blood by Automated count 0-0.5 [facility] Platelet mean volume Auto (B ld) [Entitic vol]Ordered By: Addi Ortega on 04-06-2024 Platelet mean volume (Bld) [Entitic vol] Platelet mean volume [Entitic volume] in Blood by Automated count 6.3-10.7 [facility] Platelet mean volume [Entiti c volume] in Blood by Automated countOrdered By: Addi Ortega on 04-06-2024 Platelet mean volume (Bld) [Entitic vol] 8.8 fL Normal 6.3-10.7 [facility] Comment on above: Performed By: #### P ILLAR TSH, PILLAR LIPID, PILLAR CBC, PILLAR BMP #### [facility] [address] Platelets Auto (Bld) [#/Vol] Ordered By: Addi Ortega on 04-06-2024 Platelets (Bld) [#/Vol] Platelets [#/volume] in Blood by Automated count 150-450 [facility] Platelets [#/volume] in Bloo d by Automated countOrdered By: Addi Ortega on 04-06-2024 Platelets (Bld) [#/Vol] 274 10*3/uL Normal 150-450 [facility] Comment on above: Performed By: #### P ILLAR TSH, PILLAR LIPID, PILLAR CBC, PILLAR BMP #### [facility] [address] [place] [address] Potassium [Moles/volume] in Serum or PlasmaOrdered By: Addi Ortega on 04-06-2024 Potassium [Moles/Vol] 4.0 mmol/L Normal 3.5-5.1 [facility] Comment on above: Performed By: #### P ILLAR TSH, PILLAR LIPID, PILLAR CBC, PILLAR BMP #### [facility] [address] [place] [address] Potassium [Moles/Vol] Potassium [Moles/v olume] in Serum or Plasma 3.5-5.1 [facility] RBC Auto (Bld) [#/Vol]Ordere d By: Addi Ortega on 04-06-2024 RBC (Bld) [#/Vol] Erythrocytes [#/volu me] in Blood by Automated count 3.60-5.00 [facility] Serum or plasma anion gap de terminationOrdered By: Addi Ortega on 04-06-2024 Anion gap [Moles/Vol] 11.0 mmol/L Normal 6.0-15.0 [facility] Comment on above: Performed By: #### P ILLAR TSH, PILLAR LIPID, PILLAR CBC, PILLAR BMP #### [facility] [address] Anion gap [Moles/Vol] Serum or plasma an ion gap determination 6.0-15.0 [facility] Serum or plasma high density lipoprotein (HDL) cholesterol measurementOrdered By: Addi Ortega on 04-06-2024 Cholesterol in HDL [Mass/Vol] 48 mg/dL Normal 23-92 [facility] Comment on above: HDL CHOL ATP-III CLA SSIFICATION Cardiovascular RiskHDL > or equal to 60 mg/dL LOWHDL < 40 mg/dL HIGH Result Comment: HDL CHOL ATP-III CLASSIFICATION Cardiovascular Risk HDL > or equal to 60 mg/dL LOW HDL < 40 mg/dL HIGH Performed By: #### P ILLAR TSH, PILLAR LIPID, PILLAR CBC, PILLAR BMP #### [facility] [address] Serum or plasma total choles terol/high density lipoprotein (HDL) cholesterol mass ratOrdered By: Addi Ortega on 04-06-2024 Cholesterol.total/Cho lesterol in HDL [Mass ratio] 3.3 {ratio} Normal <5.0 [facility] Comment on above: Performed By: #### P ILLAR TSH, PILLAR LIPID, PILLAR CBC, PILLAR BMP #### [facility] [address] Cholesterol.total/Cho lesterol in HDL [Mass ratio] Serum or plasma total cholesterol/high density lipoprotein (HDL) cholesterol mass rat <5.0 [facility] Sodium [Moles/volume] in Ser um or PlasmaOrdered By: Addi Ortega on 04-06-2024 Sodium [Moles/Vol] 135 mmol/L Low 136-145 [facility] Comment on above: Performed By: #### P ILLAR TSH, PILLAR LIPID, PILLAR CBC, PILLAR BMP #### [facility] [address] [place] [address] [place] Sodium [Moles/Vol] Sodium [Moles/volume ] in Serum or Plasma Low 136-145 [facility] Thyrotropin [Units/volume] i n Serum or PlasmaOrdered By: Addi Ortega on 04-06-2024 TSH Qn 2.72 m[IU]/L 0.45-5.33 [facility] TSH Qn Thyrotropin [Units/v olume] in Serum or Plasma 0.45-5.33 [facility] Triglyceride [Mass/volume] i n Serum or PlasmaOrdered By: Addi Ortega on 04-06-2024 Triglyceride [Mass/Vol] 79 mg/dL 0-149 [facility] Comment on above: TRIG ATP III CLASSIF ICATIONTRIG less than 150 mg/dL NormalTRIG 150-199 mg/dL Borderline highTRIG 200-500 mg/dL High TRIG greater than 500 mg/dL Very highStandard traceable to the Center for Disease Conrtrol and Prevention (CDC) test method. Triglyceride [Mass/Vol] Triglyceride [Mass/volume] in Serum or Plasma 0-149 [facility] Comment on above: TRIG ATP III CLASSIF ICATIONTRIG less than 150 mg/dL NormalTRIG 150-199 mg/dL Borderline highTRIG 200-500 mg/dL High TRIG greater than 500 mg/dL Very highStandard traceable to the Center for Disease Conrtrol and Prevention (CDC) test method. Urea nitrogen [Mass/volume] in Serum or PlasmaOrdered By: Addi Ortega on 04-06-2024 Urea nitrogen [Mass/Vol] 7 mg/dL Normal 03-09 [facility] Comment on above: Performed By: #### P ILLAR TSH, PILLAR LIPID, PILLAR CBC, PILLAR BMP #### [address] Urea nitrogen [Mass/Vol] Urea nitrogen [Mass/volume] in Serum or Plasma 03-09 [facility] WBC Auto (Bld) [#/Vol]Ordere d By: Addi Ortega on 04-06-2024 WBC (Bld) [#/Vol] Leukocytes [#/volume ] in Blood by Automated count 3.8-11.6 [facility] ED Note-Physicianon 03-20-20 ED Note-Physician ED Note-Physician Basic Information Time Seen: Hector Correa PA-C 03/18/2024 08:14 Chief Complaint pt reports being [...] and Complexity of Problems Differential Diagnosis: [] [facility] Data External documents reviewed: [] My EKG [...] with the patient. 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 Discussed return precautions. [...] 03/21/[address], [address] [place] [address]- Business (1) Additional Instructions: DARWIN JONES In 3 days [address] [facility] [place] [address] [place] [address] [phone] Business (1) Additional Instructions: Patient Education Threatened Miscarriage Subchorionic Hematoma Attestation Patient seen and evaluated by the physician nurse practitioner physician assistant. Attending physician was present in the emergency department and supervised care. This visit was performed by both the physician and an APC. I performed all aspects of the MDM as documented. This report was transcribed using voice recognition software. Every effort was made to ensure accuracy, however, inadvertently computerized supervisor carbon electrodes mistakes may be present. Appropriate healthc (more content not included)... Normal [facility] Comment on above: Result Comment: Elec tronically Signed By: Hector Correa PA-C\.br\Date and Time Signed: 03/18/24 12:11 EDT\.br\Electronically Co-Signed By: Toan [place] DO\.br\Date and Time Co-Signed: 03/20/24 07:17 EDT ABO/Rhon 03-18-2024 ABO/Rh Negative Invalid Interpretation Code [facility] Comment on above: Performed By: #### 2 [id number] #### [facility] [address] [place] [address] BLOOD BANKOrdered By: Nikky Brennan on 03-18-2024 ABO/Rh Interp Negative Invalid Interpretation Code [facility] BB Subsection BMPon 03-18-2024 Anion gap [Moles/Vol] 12 mmol/L Normal 6-16 [facility] Comment on above: Performed By: #### 2 [id number] #### [facility] [address] [place] [address] Calcium [Mass/Vol] 9.2 mg/dL Normal 8.9-11.[address] [facility] Comment on above: Performed By: #### 2 [id number] #### [facility] [address] [place] [address] Chloride [Moles/Vol] 105 mmol/L Normal 101-111 [facility] Comment on above: Performed By: #### 2 [id number] #### [facility] [address] [place] [address] CO2 [Moles/Vol] 23 mmol/L Normal 21-31 [facility] Comment on above: Performed By: #### 2 [id number] #### [facility] [address] [place] [address] Creatinine [Mass/Vol] 0.5 mg/dL Normal 0.5-1.3 [facility] Comment on above: Performed By: #### 2 [id number] #### [facility] [address] [place] [address] Glucose [Mass/Vol] 92 mg/dL Normal 55-[address] [facility] Comment on above: Performed By: #### 2 [id number] #### [facility] [address] [place] [address] Potassium [Moles/Vol] 3.8 mmol/L Normal 3.5-5.3 [facility] Comment on above: Performed By: #### 2 [id number] #### [facility] [address] [place] [address] Sodium [Moles/Vol] 136 mmol/L Normal 135-[address] [facility] Comment on above: Performed By: #### 2 [id number] #### [facility] [address] [place] [address] Urea nitrogen [Mass/Vol] 9 mg/dL Normal 5-[address] [facility] Comment on above: Performed By: #### 2 [id number] #### [facility] [address] [place] [address] Urea nitrogen/Creatinine [Mass ratio] 18 No Units Normal 10-[address] [facility] Comment on above: Performed By: #### 2 [id number] #### [facility] [address] [place] [address] BhCG Quanton 03-18-2024 [place] [address] m[IU]/mL High 1-3 [facility] Comment on above: Result Comment: 'F N ON < 1 - 3' ' 0.2 - 1 WEEK = 5 TO 50' ' 1 - 2 WEEKS = 50 - 500' ' 2 - 3 WEEKS = 100 - 5000' ' 3 - 4 WEEKS = 500 - 86977' ' 4 - 5 WEEKS = 1000 - 43823' ' 5 - 6 WEEKS = 51229 - 047223' ' 6 - 8 WEEKS = 20417 - 936816' ' 8 - 12 WEEKS = 71539 - 105443' Performed By: #### 2 [id number] #### [facility] [address] [place] [address] CBC w/ Auto Diffon 4 Basophils/100 WBC (Bld) 0.6 % Normal 0.0-2.[address] [facility] Comment on above: Performed By: #### 2 [id number] #### [facility] [address] [place] [address] Basophils/Leukocytes Auto (Bld) [Pure # fraction] 0.0 E9/L Normal 0.0-0.[address] [facility] Comment on above: Performed By: #### 2 [id number] #### [facility] [address] [place] [address] Eosinophils (Bld) [#/Vol] 0.0 E9/L Normal 0.0-0.[address] [facility] Comment on above: Performed By: #### 2 [id number] #### [facility] [address] [place] [address] Eosinophils/100 WBC (Bld) 0.5 % Normal 0.0-8.[address] [facility] Comment on above: Performed By: #### 2 [id number] #### [facility] [address] [place] [address] Erythrocyte distribution width (RBC) [Ratio] 12.5 % Normal 10.9-14.[address] [facility] Comment on above: Performed By: #### 2 [id number] #### [facility] [address] [place] [address] Hematocrit (Bld) [Volume fraction] 40.2 % Normal 34.0-46.[address] [facility] Comment on above: Performed By: #### 2 [id number] #### [facility] [address] [place] [address] Hemoglobin (Bld) [Mass/Vol] 13.8 g/dL Normal 12.0-16.[address] [facility] Comment on above: Performed By: #### 2 [id number] #### [facility] [address] [place] [address] Lymphocytes (Bld) [#/Vol] 2.4 E9/L Normal 1.0-4.[address] [facility] Comment on above: Performed By: #### 2 [id number] #### [facility] [address] [place] [address] Lymphocytes/100 WBC (Bld) 28.4 % Normal 14.0-50.[address] [facility] Comment on above: Performed By: #### 2 [id number] #### [facility] [address] [place] [address] MCH (RBC) [Entitic mass] 32.3 pg Normal 27.0-34.[address] [facility] Comment on above: Performed By: #### 2 476281 #### [facility] [address] [place] [address] MCHC (RBC) [Mass/Vol] 34.3 g/dL Normal 31.4-36.0 [facility] Comment on above: Performed By: #### 2 935274 #### [facility] [address] [place] [address] MCV (RBC) [Entitic vol] 94.2 fL Normal 80.0-100.[address] [facility] Comment on above: Performed By: #### 2 [id number] #### [facility] [address] [place] [address] Monocytes (Bld) [#/Vol] 0.4 E9/L Normal 0.2-1.[address] [facility] Comment on above: Performed By: #### 2 [id number] #### [facility] [address] [place] [address] Neutrophils (Bld) [#/Vol] 5.4 E9/L Normal 2.0-7.[address] [facility] Comment on above: Performed By: #### 2 544360 #### [facility] [address] [place] [address] Neutrophils/100 WBC (Bld) 65.4 % Normal 36.0-75.[address] [facility] Comment on above: Performed By: #### 2 546305 #### [facility] [address] [place] [address] Platelet mean volume (Bld) [Entitic vol] 8.5 fL Normal 6.4-10.[address] [facility] Comment on above: Performed By: #### 2 652502 #### [facility] [address] [place] [address] Platelets (Bld) [#/Vol] 249.0 E9/L Normal 150.0-500. [address] [facility] Comment on above: Performed By: #### 2 451879 #### [facility] [address] [place] [address] RBC (Bld) [#/Vol] 4.3 E12/L Normal 4.3-5.[address] [facility] Comment on above: Performed By: #### 2 [id number] #### [facility] [address] [place] [address] WBC corrected for nucl RBC Auto (Bld) [#/Vol] 8.3 E9/L Normal 4.0-11.[address] [facility] Comment on above: Performed By: #### 2 184007 #### [facility] [address] [place] [address] CHEMISTRYOrdered By: SYSTEM SYSTEM on 03-18-2024 Anion [...] 199 mg/[place] [address] m[IU]/mL High 1 - 3 mIU/mL [facility] Comment on above: Result Comment: 'F N ON < 1 - 3' ' 0.2 - 1 WEEK = 5 TO 50' ' 1 - 2 WEEKS = 50 - 500' ' 2 - 3 WEEKS = 100 - 5000' ' 3 - 4 WEEKS = 500 - 25732' ' 4 - 5 WEEKS = 1000 - 84335' ' 5 - 6 WEEKS = 98451 - 226938' ' 6 - 8 WEEKS = 36575 - 617485' ' 8 - 12 WEEKS = 99466 - 634420' Potassium [Moles/Vol] 3.8 mmol/L Normal 3.5 - 5.3 mmol/L [facility] Sodium [Moles/Vol] 136 mmol/L Normal 135 - 145 mmol/L [facility] Urea nitrogen [Mass/Vol] 9 mg/dL Normal 5 - 21 mg/dL [facility] Urea nitrogen/Creatinine [Mass ratio] 18 mg/mg Normal 10 - 20 [facility] ED Clinical Summaryon 2023 ED Clinical Summary ED Clinical Summary [place] [address] ED Clinical Summary Person Information Name: TAWNYA HERRING [facility] Age: 28 Years : 1995 Sex: Female Language: Grenadian PCP: DARWIN JONES CNP Marital Status: Single Phone: [phone] Visit Id: Visit Reason: Vaginal bleeding - [...] 03/18/2024 12:15:02 03/18/2024 12:15:02 03/18/2024 12:15:02 ADDRESS: [address] [place] [id number] PHYS DOC NOTES: MEDICAL INFORMATION: Prescriptions Given: Medications to Continue with No Changes Other Medications citalopram (CeleXA 20 mg Tab) 1 Tablets By Mouth every day. PATIENT EDUCATION INFORMATION: Instructions: Threatened Miscarriage; Subchorionic Hematoma Follow up: With: Address: When: Rogelio Nath [address] [place], [place] [id number] Business (1) In 3 days 03/21/2024 With: Address: When: DARWIN JONES [address] [place], [place] [phone] Business (1) In 3 days DIAGNOSIS: Subchorionic bleed; Threatened Normal [facility] ED Patient Summaryon 024 ED Patient Summary ED Patient Summary [address] [address] Patient Discharge Instructions Person Information Name: TAWNYA HERRING Age: 28 Years Arrival Date: 03/18/2024 08:06:19 Discharge Diagnosis: Subchorionic bleed; Threatened Primary Care Physician: DARWIN JONES CNP Provider Information Primary Provider: Toan Lake DO Advanced Detonator Assembler:None The exam and treatment you received in the Emergency Department were for an urgent problem and are not intended as complete care. It is important that you follow up with a doctor, nurse practitioner, or physician?s nurse practitioner physician assistant for ongoing care. If your symptoms become worse or you do not improve as expected and you are unable to reach your usual health care provider, you should return to the Emergency Department. We are available 24 hours a day. TWANYA HERRING has been given the following list of patient education materials, prescriptions and follow-up instructions: Follow-up Instructions: With: Address: When: Rogelio Nath [address] [place] [address] JIM, [facility] [address], [place] [address] Business (1) In 3 days 03/21/2024 With: Address: When: DARWIN JONES [address] [place] [phone] [facility] (1) In 3 days In the event that this physician does not participate in your insurance network, please consult with your insurance company to find a nearby participating provider. Patient Education Materials: Threatened Miscarriage; Subchorionic Hematoma A MESSAGE TO ALL PATIENTS REGARDING OPIOIDS PRESCRIPTION OPIOIDS: WHAT YOU NEED TO KNOW Prescription opioids can be used to help relieve rsnohjcc-ms-bijxzh pain and are often prescribed following a [...] not included)... Normal [facility] HEMATOLOGYOrdered By: SYSTEM SYSTEM on 03-18-2024 [...] E9/L Remisol Heme UA with Cult Rflxon 08-03-20 24 Bilirubin Ql (U) Negative Normal Negative [facility] Comment on above: Performed By: #### 4 [id number] #### [facility] [address] [place] [address] Clarity (U) Clear Normal Clear [facility] Comment on above: Performed By: #### 4 [id number] #### [facility] [address] [place] [address] Color (U) Yellow Normal Yellow [facility] Comment on above: Result Comment: Micr oscopic readings are only performed on those samples that meet specific criteria set forth by [facility]. Performed By: #### 4 [id number] #### [facility] [address] [place] [address] Epithelial cells.squamous Auto (Urine sed) [#/Area] 0-2 Invalid Interpretation Code [facility] Comment on above: Performed By: #### 4 [id number] #### [facility] [address] [place] [address] Glucose Ql (U) Negative Normal Negative [facility] Comment on above: Performed By: #### 4 [id number] #### [facility] [address] [place] [address] Hemoglobin Auto test strip (U) [Mass/Vol] 3+ mg/dL Abnormal Negative [facility] Comment on above: Performed By: #### 4 [id number] #### [facility] [address] [place] [address] Ketones Auto test strip Ql (U) Negative Normal Negative [facility] Comment on above: Performed By: #### 4 [id number] #### [facility] [address] [place] [address] Leukocyte esterase Auto test strip Ql (U) 25 Chaparrita/uL Normal Negative [facility] Comment on above: Performed By: #### 4 [id number] #### [facility] [address] [place] [address] Mucus Auto Ql (U) Trace Normal Negative [facility] Comment on above: Performed By: #### 4 [id number] #### [facility] [address] [place] [address] Nitrite Auto test strip Ql (U) Negative Normal Negative [facility] Comment on above: Performed By: #### 4 [id number] #### [facility] [address] [place] [address] pH (U) 7.5 [pH] Invalid Interpretation Code 5.0-9.[address] [facility] Comment on above: Performed By: #### 4 [id number] #### [facility] [address] [place] [address] Protein Ql (U) Trace Abnormal Negative [facility] Comment on above: Performed By: #### 4 [id number] #### [facility] [address] [place] [address] RBC Ql (U) 31-75 Abnormal 0-[address] [facility] Comment on above: Performed By: #### 4 [id number] #### [facility] [address] [place] [address] Specific gravity (U) [Rel density] 1.023 Invalid Interpretation Code 1.005-1.[address] [facility] Comment on above: Performed By: #### 4 [id number] #### [facility] [address] [place] [address] Urobilinogen (U) [Mass/Vol] Negative Normal Negative [facility] Comment on above: Performed By: #### 4 [id number] #### [facility] [address] [place] [address] WBC Auto (Urine sed) [#/Area] 0-5 Normal 0-[address] [facility] Comment on above: Performed By: #### 4 [id number] #### [facility] [address] [place] [address] Type of Urine collection method Clean Catch Normal [facility] Comment on above: Performed By: #### 4 [id number] #### [facility] [address] [place] [address] URINALYSISOrdered By: SYSTEM SYSTEM on 03-18-2024 Bilirubin [...] specific criteria set forth by [facility]. Epithelial cells.squamous Auto (Urine sed) [...] intrauterine , with heart rate 125 bpm. [place]-rump length 3.22 mm. Mean sac diameter 1.74 [...] Performed Transvaginal Ultrasound Performed Normal [facility] US Transvaginalon 03-18-2024 US Transvaginal Exam Date/Time: 03/18/2024 11:41 EDT Reason for Exam: Vaginal bleeding Report Please review ultrasound pelvis for ultrasound transvaginal report. Ordering Provider: Hector Correa FINAL REPORT Dictated: 03/18/2024 12:06 pm Luis Alfredo Bunch MD Signed (Electronic Signature): 03/18/2024 12:06 pm Signed by: Luis Alfredo Bunch MD Transcribed by: EDWIN Technologist: MARCOS Normal [facility] eGFRon 03-18-2024 eGFR 131 mL/min/1.73 m2 Normal >=[address] [facility] Comment on above: Order Comment: Order added by Discern Expert. Performed By: #### 1 [id number] #### [facility] [address] [place] [address] Progesteroneon 02-24-2024 Progesterone 9.9 ng/mL Normal . [facility] Comment on above: Result Comment: Foll icular phase 0.1 - 0.9 Luteal phase 1.8 - 23.9 Ovulation phase 0.1 - 12.0 First trimester 11.0 - 44.3 Second trimester 25.4 - 83.3 Third trimester 58.7 - 214.0 Postmenopausal 0.0 - 0.1 Performed at: [facility] [id number] Non Acoustic Operator: Alexis Ashton PhD, Phone: [phone] PERFORMED BY: [place] [address] [place] [address] PATHOLOGIST SOLAR ENERGY SPECIALIST JORDI SMITH M.D. Performed By: #### P ANTHONY ####[facility] , Serum or plasma progesterone measurement (mass/volume)Ordered By: Brain Way on 02-24-2024 Progesterone [Mass/Vol] 9.9 ng/mL . [facility] Comment on above: Follicular phase 0.1 - 0.9 Luteal phase 1.8 - 23.9 Ovulation phase 0.1 - 12.0 First trimester 11.0 - 44.3 Second trimester 25.4 - 83.3 Third trimester 58.7 - 214.0 Postmenopausal 0.0 - 0.1Performed at: [facility] [place] [id number] Director: Alexis Ashton PhD, Phone: [phone] Progesteroneon 01-24-2024 Progesterone 8.5 ng/mL Normal . [facility] Comment on above: Result Comment: Foll icular phase 0.1 - 0.9 Luteal phase 1.8 - 23.9 Ovulation phase 0.1 - 12.0 First trimester 11.0 - 44.3 Second trimester 25.4 - 83.3 Third trimester 58.7 - 214.0 Postmenopausal 0.0 - 0.1 Performed at: [facility] [address] [place] [id number] Non Acoustic Operator: Alexis Ashton PhD, Phone: [phone] PERFORMED BY: [place] [address] [place] [address] PATHOLOGIST SOLAR ENERGY SPECIALIST JORDI SMITH M.D. Performed By: #### P ANTHONY ####[facility] , Serum or plasma progesterone measurement (mass/volume)Ordered By: Brain Way on 01-24-2024 Progesterone [Mass/Vol] 8.5 ng/mL . [facility] Comment on above: Follicular phase 0.1 - 0.9 Luteal phase 1.8 - 23.9 Ovulation phase 0.1 - 12.0 First trimester 11.0 - 44.3 Second trimester 25.4 - 83.3 Third trimester 58.7 - 214.0 Postmenopausal 0.0 - 0.1Performed at: [facility] [id number] Director: Alexis Ashton PhD, Phone: [phone] Progesteroneon 12-27-2023 Progesterone 13.3 ng/mL Normal . [facility] Comment on above: Result Comment: Foll icular phase 0.1 - 0.9 Luteal phase 1.8 - 23.9 Ovulation phase 0.1 - 12.0 First trimester 11.0 - 44.3 Second trimester 25.4 - 83.3 Third trimester 58.7 - 214.0 Postmenopausal 0.0 - 0.1 Performed at: [facility] [employer] [id number] Non Acoustic Operator: Alexis Ashton PhD, Phone: [phone] PERFORMED BY: [place] [address] [place] [address] PATHOLOGIST SOLAR ENERGY SPECIALIST JORDI SMITH M.D. Performed By: #### P ANTHONY ####[facility] , Serum or plasma progesterone measurement (mass/volume)Ordered By: Brain Wya on 12-27-2023 Progesterone [Mass/Vol] 13.3 ng/mL . [facility] Comment on above: Follicular phase 0.1 - 0.9 Luteal phase 1.8 - 23.9 Ovulation phase 0.1 - 12.0 First trimester 11.0 - 44.3 Second trimester 25.4 - 83.3 Third trimester 58.7 - 214.0 Postmenopausal 0.0 - 0.1Performed at: [facility] [id number] Director: Alexis Ashton PhD, Phone: [phone] Progesteroneon 11-30-2023 Progesterone 16.9 ng/mL Normal . [facility] Comment on above: Result Comment: Foll icular phase 0.1 - 0.9 Luteal phase 1.8 - 23.9 Ovulation phase 0.1 - 12.0 First trimester 11.0 - 44.3 Second trimester 25.4 - 83.3 Third trimester 58.7 - 214.0 Postmenopausal 0.0 - 0.1 Performed at: [address] [id number] Non Acoustic Operator: Alexis Ashton PhD, Phone: [phone] PERFORMED BY: [place] [address] [place] [address] PATHOLOGIST SOLAR ENERGY SPECIALIST JORDI SMITH M.D. Performed By: #### P ANTHONY ####[facility] , Serum or plasma progesterone measurement (mass/volume)Ordered By: Brain Way on 11-30-2023 Progesterone [Mass/Vol] 16.9 ng/mL . [facility] Comment on above: Follicular phase 0.1 - 0.9 Luteal phase 1.8 - 23.9 Ovulation phase 0.1 - 12.0 First trimester 11.0 - 44.3 Second trimester 25.4 - 83.3 Third trimester 58.7 - 214.0 Postmenopausal 0.0 - 0.1Performed at: [address] [id number] Director: Alexis Ashton PhD, Phone: [phone] CNOVon 11-18-2023 CNOV Office Visit (ENDOMN ) -- TAWNYA HERRING ([id number]) 1995 F Date Time Provider Department 11/18/23 8:30 AM RUBY [facility]ITT[facility] During your visit today, we recorded the following information about you: Pulse Blood pressure Weight Last Period 100/minute 132/92 110.7 kg 11/09/23 [place] 11/18/2023 7:58 AM Signed Thank you for choosing the [facility] Department of Endocrinology, Diabetes and Metabolism. Did you know that you need to call 48 hours in advance of your scheduled visit, if you are unable to make your appointment? [facility] thanks you for your commitment, because patients not showing to their appointment results in a lost opportunity for patients to receive world class health care at the [facility]. To Cancel an appointment, please choose one of the following: - Call the Appointment Call Center at [phone] - From [employer], Go to Appointments - Cancel Appts If cancelling, consider your need to reschedule to prevent further delays in your care. To Schedule an appointment, please choose one of the following: - Call the Appointment Call Center at [phone] - From [facility], Go to Appointments - Request an Appt [...] as of 11/18/2023 - cyanocobalamin/folic acid (VITAMIN F43-OUDQY ACID) 1,000-400 mcg lozg Take by mouth (more content not included)... Normal [facility] Progesteroneon 11-01-2023 Progesterone 7.1 ng/mL Normal . [facility] Comment on above: Result Comment: Foll icular phase 0.1 - 0.9 Luteal phase 1.8 - 23.9 Ovulation phase 0.1 - 12.0 First trimester 11.0 - 44.3 Second trimester 25.4 - 83.3 Third trimester 58.7 - 214.0 Postmenopausal 0.0 - 0.1 Performed at: [facility] [address] [id number] Non Acoustic Operator: Alexis Ashton PhD, Phone: [phone] PERFORMED BY: [address] [place] [address] PATHOLOGIST SOLAR ENERGY SPECIALIST JORDI SMITH M.D. Performed By: #### P ANTHONY ####[facility] , Serum or plasma progesterone measurement (mass/volume)Ordered By: Brain Way on 11-01-2023 Progesterone [Mass/Vol] 7.1 ng/mL . [facility] Comment on above: Follicular phase 0.1 - 0.9 Luteal phase 1.8 - 23.9 Ovulation phase 0.1 - 12.0 First trimester 11.0 - 44.3 Second trimester 25.4 - 83.3 Third trimester 58.7 - 214.0 Postmenopausal 0.0 - 0.1Performed at: [facility] [address] [id number] Director: Alexis Ashton PhD, Phone: [phone] Serum or plasma progesterone measurement (mass/volume)Ordered By: Brain Way on 10-01-2023 Progesterone [Mass/Vol] 0.9 ng/mL . [facility] Comment on above: Follicular phase 0.1 - 0.9 Luteal phase 1.8 - 23.9 Ovulation phase 0.1 - 12.0 First trimester 11.0 - 44.3 Second trimester 25.4 - 83.3 Third trimester 58.7 - 214.0 Postmenopausal 0.0 - 0.1Performed at: [facility] [address] [id number] Director: Alexis Ashton PhD, Phone: [phone] Ambulatory Visit Summaryon 0 09-29-2023 Ambulatory Visit [...] Up with DARWIN JONES CNP When: Where: [facility] [place] [address]- Medications What How Much When Why Instructions New amoxicillin-clavulanate (Augmentin 875 mg oral tablet) 1 Tablets By Mouth Every 12 hours Sinusitis BMI 38.0-38.9,adult Duration: 10 Days Pickup at [facility] New methylPREDNISolone (Medrol Dosepack 4 mg Tab) 1 Packets By Mouth As Directed Sinusitis BMI 38.0-38.9,adult Duration: 6 Days as directed on package labeling Pickup at [facility] Unchanged citalopram (CeleXA 20 mg Tab) 1 Tablets By Mouth Every day Contact prescribing physician if questions or concerns Unchanged citalopram (citalopram 20 mg Tab) Contact prescribing physician if questions or concerns Unchanged pyridoxine (Vitamin B6 100 mg Tab) By Mouth Every day Contact prescribing physician if questions or concerns Pharmacy Information [facility]: [address] [place] [id number] [phone] Allergies No Known Allergies No Known Medication [...] us for your care. Normal [facility] Family Medicine Office/Clini c Noteon 09-29-2023 [...] with voice recognition software. Occasional wrong-word or ?tpbyo-y-yxmy? substitutions may have occurred due to the [...] with improvement. She does not use any lyrs-ybn-wveweov Flonase and has not tried any other [...] day(s), # 20 tab(s), Refills(s) 0, Pharmacy: [facility], 170.2, cm, 09/29/23 10:44:00 EST, Height/Length Dosing, 112, kg, 09/29/23 10:44:00 EST, Weight Dosing methylPREDNISolone, = 1 packet(s), Oral, As Directed, as directed on package labeling, X 6 day(s), # 21 tab(s), Refills(s) 0, Pharmacy: [facility], 170.2, cm, 09/29/23 10:44:00 EST, Height/Length Dosing, 112, kg, 09/29/23 10:44:00 EST, Weight Dosing 2. BMI 38.0-38.9,adult (Z68.38: Body mass index [BMI] 38.0-38.9, adult) The standard range for ages 18 and olde (more content not included)... Normal [facility] Comment on above: Result Comment: Elec [...] ? Medicines that treat allergies (antihistamines). ? Ikeb-avs-dbcjvve pain relievers. ? If caused by bacteria, [...] home: Medicines ? Take, use, or apply lerc-vsf-phxbtor and prescription medicines only as told by [...] and water are not available, use hand tunnel worker. ? Do not smoke. Avoid being around people who are smoking (secondhand smoke). ? Keep all follow-up visits. This is important. Contact a health care provider if: ? You have a fever. ? Your symptoms get (more content not included)... [facility] CNPNon 07-16-2023 CNPN Telephone (ENDN) -- TAWNYA HERRING ([id number]) 1995 F Date Time Provider Department 07/16/23 [facility] During your visit today, we [...] Encounter Status:Closed by KENAN GOMEZ on 07/16/23 [facility] CNOVon 06-08-2023 CNOV Office Visit (OTOLLN ) -- TAWNYA HERRING ([id number]) 1995 F Date Time Provider Department 06/08/23 [...] will be in touch with results via [employer] HPI: Tawnya is a 27 year old [...] Low Allergies (more content not included)... Normal [facility] Alanine aminotransferase [En zymatic activity/volume] in Serum or PlasmaOrdered By: Addi Ortega on 04-08-2023 ALT [Catalytic activity/Vol] 28 U/L 7-52 [facility] Albumin [Mass/volume] in Ser um or Plasma by Bromocresol green (BCG) dye binding methoOrdered By: Addi Ortega on 04-08-2023 Albumin BCG dye [Mass/Vol] 4.8 g/dL 3.5-5.7 [facility] Alkaline phosphatase [Enzyma tic activity/volume] in Serum or PlasmaOrdered By: Addi Ortega on 04-08-2023 ALP [Catalytic activity/Vol] 61 U/L 34-104 [facility] Aspartate aminotransferase [ Enzymatic activity/volume] in Serum or PlasmaOrdered By: Addi Ortega on 04-08-2023 AST [Catalytic activity/Vol] 13 U/L 13-39 [facility] Basophils Auto (Bld) [#/Vol] Ordered By: Addi Ortega on 04-08-2023 Basophils (Bld) [#/Vol] 0.0 10*3/uL 0.0-0.2 [facility] Basophils/100 WBC Auto (Bld) Ordered By: Addi Ortega on 04-08-2023 Basophils/100 WBC (Bld) 0.4 % . [facility] Bilirubin.total [Mass/volume ] in Serum or PlasmaOrdered By: Addi Ortega on 04-08-2023 Bilirubin [Mass/Vol] 0.4 mg/dL 0.3-1.0 [facility] Calcium [Mass/volume] in Ser um or PlasmaOrdered By: Addi Ortega on 04-08-2023 Calcium [Mass/Vol] 9.5 mg/dL 8.6-10.3 [facility] Carbon dioxide, total [Moles /volume] in Serum or PlasmaOrdered By: Addi Ortega on 04-08-2023 CO2 [Moles/Vol] 25.4 mmol/L 21.0-31.0 [facility] Chloride [Moles/volume] in S ghada or PlasmaOrdered By: Addi Ortega on 04-08-2023 Chloride [Moles/Vol] 106 mmol/L 98-107 [facility] Cholesterol [Mass/volume] in Serum or PlasmaOrdered By: Addi Ortega on 04-08-2023 Cholesterol [Mass/Vol] 162 mg/dL 140-200 [facility] Comment on above: Chol less than 200 m g/dl low riskChol 201-239 mg/dl borderline riskChol 240 mg/dl and greater high risk Cholesterol in LDL Calc [Mas s/Vol]Ordered By: Addi Ortega on 04-08-2023 Cholesterol in LDL [Mass/Vol] 99 mg/dL 0-100 [facility] Comment on above: LDL ATP III CLASSIFI CATIONLDL less than 100 mg/dL OptimalLDL 100-129 mg/dL Near or above optimalLDL 130-159 mg/dL Borderline highLDL 160-189 mg/dL HighLDL greater than 189 mg/dL Very high Cholesterol in VLDL Calc [Ma ss/Vol]Ordered By: Addi Ortega on 04-08-2023 Cholesterol in VLDL [Mass/Vol] 18 mg/dL [facility] Creatinine [Mass/volume] in Serum or PlasmaOrdered By: Addi Ortega on 04-08-2023 Creatinine [Mass/Vol] 0.59 mg/dL 0.60-1.20 [facility] Eosinophils Auto (Bld) [#/Vo l]Ordered By: Addi Ortega on 04-08-2023 Eosinophils (Bld) [#/Vol] 0.1 10*3/uL 0.0-0.45 [facility] Eosinophils/100 WBC Auto (Bl d)Ordered By: Addi Ortega on 04-08-2023 Eosinophils/100 WBC (Bld) 1.3 % . [facility] Erythrocyte distribution wid th Auto (RBC) [Ratio]Ordered By: Addi Ortega on 04-08-2023 Erythrocyte distribution width (RBC) [Ratio] 12.6 % 11.9-15.3 [facility] Globulin Calc (S) [Mass/Vol] Ordered By: Addi Ortega on 04-08-2023 Globulin (S) [Mass/Vol] 2.7 g/dL [facility] Glucose [Mass/volume] in Ser um or PlasmaOrdered By: Addi Ortega on 04-08-2023 Glucose [Mass/Vol] 83 mg/dL 70-100 [facility] Hematocrit Auto (Bld) [Volum e fraction]Ordered By: Addi Ortega on 04-08-2023 Hematocrit (Bld) [Volume fraction] 39.3 % 34.0-46.4 [facility] Hemoglobin [Mass/volume] in BloodOrdered By: Addi Ortega on 04-08-2023 Hemoglobin (Bld) [Mass/Vol] 13.6 g/dL 11.8-15.4 [facility] Leukocytes [#/volume] correc hamilton for nucleated erythrocytes in Blood by Automated counOrdered By: Addi Ortega on 04-08-2023 WBC corrected for nucl RBC Auto (Bld) [#/Vol] 7.6 10*3/uL 3.8-11.6 [facility] Lymphocytes Auto (Bld) [#/Vo l]Ordered By: Addi Ortega on 04-08-2023 Lymphocytes (Bld) [#/Vol] 2.9 10*3/uL 1.00-4.8 [facility] Lymphocytes/100 WBC Auto (Bl d)Ordered By: Addi Ortega on 04-08-2023 Lymphocytes/100 WBC (Bld) 38.6 % . [facility] MCH Auto (RBC) [Entitic mass ]Ordered By: Addi Ortega on 04-08-2023 MCH (RBC) [Entitic mass] 31.6 pg 24.7-34.3 [facility] MCHC Auto (RBC) [Mass/Vol]Or dered By: Addi Ortega on 04-08-2023 MCHC (RBC) [Mass/Vol] 34.5 g/dL 32.0-35.0 [facility] MCV Auto (RBC) [Entitic vol] Ordered By: Addi Ortega on 04-08-2023 MCV (RBC) [Entitic vol] 91.7 fL 80-100 [facility] Monocytes Auto (Bld) [#/Vol] Ordered By: Addi Ortega on 04-08-2023 Monocytes (Bld) [#/Vol] 0.4 10*3/uL 0.0-0.8 [facility] Monocytes/100 WBC Auto (Bld) Ordered By: Addi Ortega on 04-08-2023 Monocytes/100 WBC (Bld) 5.8 % . [facility] Neutrophils Auto (Bld) [#/Vo l]Ordered By: Addi Ortega on 04-08-2023 Neutrophils (Bld) [#/Vol] 4.1 10*3/uL 1.8-7.7 [facility] Neutrophils/100 WBC Auto (Bl d)Ordered By: Addi Ortega on 04-08-2023 Neutrophils/100 WBC (Bld) 53.9 % . [facility] No Panel InformationOrdered By: Addi Ortega on 04-08-2023 Estimated GFR (CKD-EPI) > 60.0 mL/Min [facility] Nicotine Metabolite Negative Cutoff=[address] [facility] Comment on above: Performed at: - [address] [id number] Director: Catherine Mendoza MD, Phone: [phone] Pharmacy Creatinine Clearance (Chem N/A [facility] Nucleated erythrocytes [Pres ence] in Blood by Automated countOrdered By: Addi Ortega on 04-08-2023 Nucleated RBC Auto Ql (Bld) 0.0 /100{WBC} 0-0.5 [facility] Platelet mean volume Auto (B ld) [Entitic vol]Ordered By: Addi Ortega on 04-08-2023 Platelet mean volume (Bld) [Entitic vol] 8.6 fL 6.3-10.7 [facility] Platelets Auto (Bld) [#/Vol] Ordered By: Addi Ortega on 04-08-2023 Platelets (Bld) [#/Vol] 361 10*3/uL 150-450 [facility] Potassium [Moles/volume] in Serum or PlasmaOrdered By: Addi Ortega on 04-08-2023 Potassium [Moles/Vol] 4.6 mmol/L 3.5-5.1 [facility] Protein [Mass/volume] in Ser um or PlasmaOrdered By: Addi Ortega on 04-08-2023 Protein [Mass/Vol] 7.5 g/dL 6.4-8.9 [facility] RBC Auto (Bld) [#/Vol]Ordere d By: Addi Ortega on 04-08-2023 RBC (Bld) [#/Vol] 4.29 10*6/uL 3.60-5.[address] [facility] Serum or plasma albumin/glob ulin mass ratioOrdered By: Addi Ortega on 04-08-2023 Albumin/Globulin [Mass ratio] 1.8 {ratio} [facility] Serum or plasma anion gap de terminationOrdered By: Addi Ortega on 04-08-2023 Anion gap [Moles/Vol] 12.2 mmol/L 6.0-15.0 [facility] Serum or plasma high density lipoprotein (HDL) cholesterol measurementOrdered By: Addi Ortega on 04-08-2023 Cholesterol in HDL [Mass/Vol] 45 mg/dL 23-92 [facility] Comment on above: HDL CHOL ATP-III CLA SSIFICATION Cardiovascular RiskHDL > or equal to 60 mg/dL LOWHDL < 40 mg/dL HIGH Serum or plasma total choles terol/high density lipoprotein (HDL) cholesterol mass ratOrdered By: Addi Ortega on 04-08-2023 Cholesterol.total/Cho lesterol in HDL [Mass ratio] 3.6 {ratio} <5.0 [facility] Sodium [Moles/volume] in Ser um or PlasmaOrdered By: Addi Ortega on 04-08-2023 Sodium [Moles/Vol] 139 mmol/L 136-145 [facility] Thyrotropin [Units/volume] i n Serum or PlasmaOrdered By: Addi Ortega on 04-08-2023 TSH Qn 4.55 m[IU]/L 0.45-5.33 [facility] Triglyceride [Mass/volume] i n Serum or PlasmaOrdered By: Addi Ortega on 04-08-2023 Triglyceride [Mass/Vol] 92 mg/dL 0-149 [facility] Comment on above: TRIG ATP III CLASSIF ICATIONTRIG less than 150 mg/dL NormalTRIG 150-199 mg/dL Borderline highTRIG 200-500 mg/dL High TRIG greater than 500 mg/dL Very highStandard traceable to the Center for Disease Conrtrol and Prevention (CDC) test method. Urea nitrogen [Mass/volume] in Serum or PlasmaOrdered By: Addi Ortega on 04-08-2023 Urea nitrogen [Mass/Vol] 18 mg/dL 7-25 [facility] WBC Auto (Bld) [#/Vol]Ordere d By: Addi Ortega on 04-08-2023 WBC (Bld) [#/Vol] 7.6 10*3/uL 3.8-11.6 [facility] C Urineon 03-24-2023 Bacteria identified Cx [...] Locations R1: This [facility] performed at: [facility] [address] [place] [address], [address] , , [facility] Comment on above: Performed By: #### 2 649328, 8222241, 50910951, 0751986, 7678562, 9273408 #### [facility] [address] [place] [address] CT Abdomen/Pelvis w/o Contra db 03-23-2023 CT Abdomen/Pelvis w/o Contrast Exam Date/Time: [...] amount in ml's: [address] [facility] Discharge Instructionson Discharge Instructions [id number]:[address] [facility] ED Note-Physicianon 03-23-20 ED Note-Physician Basic Information Time Seen: Hector Correa PA-C 03/22/2023 20:14 Chief Complaint Pt. presetns to [...] any medications. States that she was at [facility], where she did wait about 5 [...] and Complexity of Problems Differential Diagnosis: [] [facility] Data External documents reviewed: [] My EKG [...] day(s), # 28 cap(s), Refills(s) 0, Pharmacy: [facility], 170.2, cm, 03/22/23 20:14:00 EDT, Height/Length Dosing, 113.5, kg, 03/22/23 20:14:00 EDT, Weight Dosing ketorolac, 30 mg = 1 mL, Injection, IV Push, Once, Stop date 03/22/23 20:51:00 EDT, STAT, Start date 03/22/23 20:51:00 EDT, 03/22/23 20:51:00 EDT ondansetron, 4 mg = 2 mL, Injection, IV Push, Once, Stop date 03/22 (more content not included)... Normal [facility] Comment on above: Result Comment: Elec tronically Signed By: Hector Correa PA-C\.br\Date and Time Signed: 03/22/23 23:35 EDT\.br\Electronically Co-Signed By: Gabriel Curtis DO\.br\Date and Time Co-Signed: 03/23/23 03:21 EDT RAD - Preliminary Cat Scan R eporton 03-23-2023 RAD - Preliminary Cat Scan Report [id number]:[address] [facility] Auto Diffon 03-22-2023 Basophils/100 WBC (Bld) 0.5 % Normal 0.0-2.[address] [facility] Comment on above: Order Comment: Order Added by Discern Expert. Performed By: #### 2 255779, 3451415, 96137547, 6865208, 7588678, 3417931 #### [facility] [address] [place] [address] Basophils/Leukocytes Auto (Bld) [Pure # fraction] 0.0 E9/L Normal 0.0-0.[address] [facility] Comment on above: Order Comment: Order Added by Discern Expert. Performed By: #### 2 704843, 7035793, 10197777, 2128799, 9079433, 6039875 #### [facility] [address] [place] [address] Eosinophils/100 WBC (Bld) 1.5 % Normal 0.0-8.[address] [facility] Comment on above: Order Comment: Order Added by Discern Expert. Performed By: #### 2 130508, 6703713, 29220135, 0217688, 4931950, 4492742 #### [facility] [address] [place] [address] Eosinophils/Leukocyte s Auto (Bld) [Pure # fraction] 0.1 E9/L Normal 0.0-0.[address] [facility] Comment on above: Order Comment: Order Added by Discern Expert. Performed By: #### 2 170170, 7334950, 73972841, 7804543, 8050576, 7051620 #### [facility] [address] [place] [address] Lymphocytes/100 WBC (Bld) 34.9 % Normal 14.0-50.[address] [facility] Comment on above: Order Comment: Order Added by Discern Expert. Performed By: #### 2 183581, 6433375, 78098843, 1459894, 2687240, 9158257 #### [facility] [address] [place] [address] Lymphocytes/Leukocyte s Auto (Bld) [Pure # fraction] 3.4 E9/L Normal 1.0-4.[address] [facility] Comment on above: Order Comment: Order Added by Discern Expert. Performed By: #### 2 200102, 8751197, 69916992, 8447483, 1254374, 1296128 #### [facility] [address] [place] [address] Monocytes/100 WBC (Bld) 6.0 % Normal 4.0-14.[address] [facility] Comment on above: Order Comment: Order Added by Discern Expert. Performed By: #### 2 754493, 9305543, 52576561, 6672835, 4485500, 3615561 #### [facility] [address] [place] [address] Monocytes/Leukocytes Auto (Bld) [Pure # fraction] 0.6 E9/L Normal 0.2-1.[address] [facility] Comment on above: Order Comment: Order Added by Discern Expert. Performed By: #### 2 202214, 7805626, 43751295, 5169459, 4582859, 4117559 #### [facility] [address] [place] [address] Neutrophils/100 WBC (Bld) 57.1 % Normal 36.0-75.[address] [facility] Comment on above: Order Comment: Order Added by Discern Expert. Performed By: #### 2 200186, 1148353, 64511395, 1778169, 5988131, 4716277 #### [facility] [address] [place] [address] Neutrophils/Leukocyte s Auto (Bld) [Pure # fraction] 5.6 E9/L Normal 2.0-7.[address] [facility] Comment on above: Order Comment: Order Added by Discern Expert. Performed By: #### 2 296337, 8511210, 89032397, 4797710, 4239674, 9823362 #### [facility] [address] [place] [address] BMPon 03-22-2023 Creatinine [Mass/Vol] 0.5 mg/dL Normal 0.5-1.3 [facility] Comment on above: Performed By: #### 2 416316, 2992188, 91697415, 5579250, 7539991, 6738927 #### [facility] [address] [place] [address] Urea nitrogen [Mass/Vol] 15 mg/dL Normal 5-[address] [facility] Comment on above: Performed By: #### 2 456284, 4191863, 05656701, 6293006, 8104561, 3145341 #### [facility] [address] [place] [address] Urea nitrogen/Creatinine [Mass ratio] 30 No Units High 10-[address] [facility] Comment on above: Performed By: #### 2 981107, 7082163, 24861738, 9627569, 1223987, 8170048 #### [facility] [address] [place] [address] Anion gap [Moles/Vol] 15 mmol/L Normal 6-16 [facility] Comment on above: Performed By: #### 2 842157, 4882242, 90532591, 9985112, 8419219, 1796235 #### [facility] [address] [place] [address] Calcium [Mass/Vol] 9.6 mg/dL Normal 8.9-11.[address] [facility] Comment on above: Performed By: #### 2 131250, 6171166, 33598708, 0986828, 5561344, 2737868 #### [facility] [address] [place] [address] Chloride [Moles/Vol] 103 mmol/L Normal 101-111 [facility] Comment on above: Performed By: #### 2 931670, 8271952, 36051673, 2508265, 3967613, 4039327 #### [facility] [address] [place] [address] CO2 [Moles/Vol] 23 mmol/L Normal 21-31 [facility] Comment on above: Performed By: #### 2 808961, 9430420, 18600105, 2681715, 1189937, 3536540 #### [facility] [address] [place] [address] Glucose [Mass/Vol] 84 mg/dL Normal 55-[address] [facility] Comment on above: Result Comment: If t his glucose result represents a fasting glucose, interpretation should refer to the following reference range: 55-99 mg/dL Performed By: #### 2 342904, 3300070, 72907744, 4337567, 3286062, 8133794 #### [facility] [address] [place] [address] Potassium [Moles/Vol] 3.7 mmol/L Normal 3.5-5.3 [facility] Comment on above: Performed By: #### 2 395813, 4641579, 51236898, 4988685, 0833271, 9826070 #### [facility] [address] [place] [address] Sodium [Moles/Vol] 137 mmol/L Normal 135-[address] [facility] Comment on above: Performed By: #### 2 949769, 9048236, 75789628, 8220876, 3396313, 8922770 #### [facility] [address] [place] [address] CBC w/ Auto Diffon 3 Erythrocyte distribution width (RBC) [Ratio] 12.5 % Normal 10.9-14.[address] [facility] Comment on above: Performed By: #### 2 507653, 3059723, 76042534, 3596092, 0082844, 1405794 #### [facility] [address] [place] [address] Hematocrit (Bld) [Volume fraction] 37.7 % Normal 34.0-46.[address] [facility] Comment on above: Performed By: #### 2 648712, 2447584, 12057602, 5060634, 5695527, 8751574 #### [facility] [address] [place] [address] Hemoglobin (Bld) [Mass/Vol] 13.1 g/dL Normal 12.0-16.[address] [facility] Comment on above: Performed By: #### 2 168186, 2052325, 65312050, 6539436, 8610419, 4205329 #### [facility] [address] [place] [address] MCH (RBC) [Entitic mass] 31.9 pg Normal 27.0-34.[address] [facility] Comment on above: Performed By: #### 2 543839, 2506685, 46205735, 9529410, 1558906, 5290628 #### [facility] [address] [place] [address] MCHC (RBC) [Mass/Vol] 34.8 g/dL Normal 31.4-36.0 [facility] Comment on above: Performed By: #### 2 753542, 4726352, 08264406, 5028704, 3010213, 3440441 #### [facility] [address] [place] [address] MCV (RBC) [Entitic vol] 91.6 fL Normal 80.0-100.[address] [facility] Comment on above: Performed By: #### 2 004510, 7835430, 25168890, 0800414, 0917755, 5509293 #### [facility] [address] [place] [address] Platelet mean volume (Bld) [Entitic vol] 7.6 fL Normal 6.4-10.[address] [facility] Comment on above: Performed By: #### 2 829969, 7307503, 72968113, 3029936, 2032011, 8243431 #### [facility] [address] [place] [address] Platelets (Bld) [#/Vol] 306.0 E9/L Normal 150.0-500. [address] [facility] Comment on above: Performed By: #### 2 755363, 5848683, 23535744, 3471121, 2267761, 3189864 #### [facility] [address] [place] [address] RBC (Bld) [#/Vol] 4.1 E12/L Low 4.3-5.[address] [facility] Comment on above: Performed By: #### 2 850148, 4691533, 26624139, 8894844, 9500825, 1760933 #### [facility] [address] [place] [address] WBC corrected for nucl RBC Auto (Bld) [#/Vol] 9.8 E9/L Normal 4.0-11.[address] [facility] Comment on above: Performed By: #### 2 255750, 5122536, 83405146, 0730006, 4659552, 4063337 #### [facility] [address] [place] [address] CHEMISTRYOrdered By: SYSTEM SYSTEM on 03-22-2023 Albumin [...] for Treatmenton 08 Consent for Treatment [id number]:[address] [facility] ED Clinical Summaryon 2022 ED Clinical Summary (Inserted Image. Hayley ble to display) [place] [id number] ED Clinical Summary Person Information Name: TAWNYA HERRING [facility] Age: 27 Years : 1995 Sex: Female Language: Grenadian PCP: DARWIN JONES CNP Marital Status: Single Phone: [phone] Visit Id: Visit Reason: Dysuria; Nausea; Flank [...] 03/22/2023 22:52:44 03/22/2023 22:52:44 03/22/2023 22:52:44 ADDRESS: [address] [place] [id number] PHYS DOC NOTES: MEDICAL INFORMATION: Prescriptions Given: New Medications [facility], [address] [place] [id number], [phone] cephalexin (Keflex 500 mg Cap) 1 Capsules By Mouth every 6 hours for 7 Days. Refills: 0. Medications to Continue with No Changes Other Medications acetaminophen-hydrocodone ([place] 325 mg-5 mg oral tablet) 2 Tablets [...] EDUCATION INFORMATION: Instructions: Urinary Tract Infection, Adult, Qxlm-nw-Cequ Follow up: With: Address: When: DARWIN [address] [address] [phone] [employer] In 3 days 03/25/2023 Comments: Follow-up with your primary care provider in 3 to 5 days. If symptoms worsen, do not improve, or new symptoms arise please report back to emergency department for further evaluation. DIAGNOSIS: UTI (urinary tract infection) Normal [facility] ED Patient Education Noteon 03-22-2023 ED [...] these instructions at home: Medicines ? Take pjby-fqu-msddyzp and prescription medicines only as told by [...] provider. Document Revised: 03/14/2021 Document Reviewed: 03/14/2021 [facility] Patient Education ? 2022 [employer]. Normal [facility] ED Patient Summaryon 023 ED Patient Summary (Inserted Image. Hayley ble to display) [place] [id number] Patient Discharge Instructions Person Information Name: TAWNYA HERRING Age: 27 Years Arrival Date: 03/22/2023 19:52:37 Discharge Diagnosis: UTI (urinary tract infection) Primary Care Physician: DARWIN JONES CNP Provider Information Primary Provider: Gabriel Curtis DO Advanced Detonator Assembler:None The exam and treatment you received in the Emergency Department were for an urgent problem and are not intended as complete care. It is important that you follow up with a doctor, nurse practitioner, or physician?s nurse practitioner physician assistant for ongoing care. If your [...] Follow-up Instructions: With: Address: When: DARWIN JONES [address] [place] [id number] [phone] Business (1) In 3 days 03/25/2023 Comments: [...] Patient Education Materials: Urinary Tract Infection, Adult, Seks-fz-Hzqx A MESSAGE TO ALL PATIENTS REGARDING OPIOIDS PRESCRIPTION OPIOIDS: WHAT YOU NEED TO KNOW Prescription opioids can be used to help relieve nmmturxb-zk-gpdhly pain and are often prescribed following a [...] not included)... Normal [facility] HEMATOLOGYOrdered By: SYSTEM SYSTEM on 03-22-2023 [...] [Mass/Vol] 4.2 g/dL Normal 3.3-5.[address] [facility] Comment on above: Performed By: #### 2 821872, 2987921, 62025672, 4813635, 4355211, 6213872 #### [facility] Laboratory [address] [place] [address] Albumin/Globulin (S) [Mass conc ratio] 1.4 Normal 1.1-2.[address] [facility] Comment on above: Performed By: #### 2 643581, 7807037, 81051525, 8430890, 2909684, 6810386 #### [facility] [address] [place] [address] ALP [Catalytic activity/Vol] 54 Int._Unit/L Normal 21-[address] [facility] Comment on above: Performed By: #### 2 861360, 7945045, 20771347, 7037200, 7783196, 9067596 #### [facility] [address] [place] [address] ALT No additional P-5'-P [Catalytic activity/Vol] 24 Int._Unit/L Normal 6-[address] [facility] Comment on above: Performed By: #### 2 360276, 4025564, 99835438, 5366001, 7492034, 7518002 #### [facility] [address] [place] [address] AST [Catalytic activity/Vol] 18 Int._Unit/L Normal 5-[address] [facility] Comment on above: Performed By: #### 2 122246, 1090994, 37310042, 2702880, 3664034, 2236075 #### [facility] [address] [place] [address] Bilirubin [Mass/Vol] 0.7 mg/dL Normal 0.0-1.1 [facility] Comment on above: Performed By: #### 2 355112, 0411086, 34563462, 8145710, 5427157, 1301445 #### [facility] [address] [place] [address] Bilirubin.direct [Mass/Vol] 0.1 mg/dL Normal 0.1-0.[address] [facility] Comment on above: Performed By: #### 2 456516, 6242115, 41975805, 0125566, 2373995, 3338801 #### [facility] [address] [place] [address] [place] [address] Bilirubin.indirect [Mass or moles/Vol] 0.6 mg/dL Normal 0.1-0.[address] [facility] Comment on above: Performed By: #### 2 311635, 2841522, 72141114, 4512642, 6658354, 3211991 #### [facility] [address] [place] [address] Globulin (S) [Mass/Vol] 3.1 g/dL Normal 1.4-4.[address] [facility] Comment on above: Performed By: #### 2 283492, 3330453, 66061787, 5967249, 3321482, 8875363 #### [facility] [address] [place] [address] Protein [Mass/Vol] 7.3 g/dL Normal 6.0-7.[address] [facility] Comment on above: Performed By: #### 2 492589, 3096855, 50588383, 6462317, 2311326, 2884736 #### [facility] [address] [place] [address] Lipase Levelon 03-22-2023 Lipase [Catalytic activity/Vol] 28 U/L Normal 13-[address] [facility] Comment on above: Performed By: #### 2 004811, 3687646, 21258089, 3743516, 2742015, 2659792 #### [facility] [address] [place] [address] SEROLOGYOrdered By: Lucina Shaikh on 03-22-2023 HCG.beta subunit (U) [Moles/Vol] Negative Normal [facility] Man Sero U BetaHcg Qualon 03-22-2023 HCG.beta subunit (U) [Moles/Vol] Negative Normal [facility] Comment on above: Performed By: #### 2 245054, 8794712, 41457478, 4544123, 8111310, 8906847 #### [facility] [address] [place] [address] UA With Cult Reflexon 2022 Bacteria LM Ql (Urine sed) TRACE Normal Trace [facility] Comment on above: Performed By: #### 2 394852, 6391029, 21229467, 7413631, 8250734, 2286064 #### [facility] [address] [place] [address] Bilirubin Ql (U) Negative Normal Negative [facility] Comment on above: Performed By: #### 2 241683, 8205574, 79020325, 5945801, 5552186, 5330006 #### [facility] [address] [place] [address] Clarity (U) SL CLOUDY Abnormal Clear [facility] Comment on above: Performed By: #### 2 466660, 5163192, 14653676, 1922082, 7369606, 1195779 #### [facility] [address] [place] [address] Color (U) YELLOW Normal Yellow [facility] Comment on above: Performed By: #### 2 641143, 2719238, 94360097, 9296326, 0066258, 3299812 #### [facility] [address] [place] [address] Crystals LM Ql (Urine sed) Present Normal [facility] Comment on above: Performed By: #### 2 732242, 3542310, 20641754, 3184738, 3201387, 3448177 #### [facility] [address] [place] [address] Epithelial cells.squamous LM.HPF (Urine sed) [#/Area] 0-2 Normal 0-2 [facility] Comment on above: Performed By: #### 2 149212, 9882297, 67411479, 4404654, 9689994, 9373118 #### [facility] [address] [place] [address] Glucose Test strip (U) [Mass/Vol] Negative Normal Negative [facility] Comment on above: Performed By: #### 2 044078, 1736806, 60011641, 6223266, 0479239, 0171731 #### [facility] [address] [place] [address] Hemoglobin Ql (U) 2+ Abnormal Negative [facility] Comment on above: Performed By: #### 2 061617, 7419318, 35821973, 0034287, 6441499, 3719591 #### [facility] [address] [place] [address] Ketones (U) [Mass/Vol] 1+ Abnormal Negative [facility] Comment on above: Performed By: #### 2 884488, 8441583, 83563161, 1768664, 8356181, 7893690 #### [facility] [address] [place] [address] Foss.plasma/Lithiu m.RBC (Bld) [Mass ratio] 0-3 Normal 0-[address] [facility] Comment on above: Performed By: #### 2 879678, 0183980, 36538461, 8303946, 6864913, 2388422 #### [facility] [address] [place] [address] Mucus Ql (Urine sed) TRACE Normal [facility] Comment on above: Performed By: #### 2 023409, 0745644, 47307484, 8767715, 4119989, 6814176 #### [facility] [address] [place] [address] Nitrite Ql (U) Negative Normal Negative [facility] Comment on above: Performed By: #### 2 655877, 7528907, 29848638, 5715371, 3629556, 0725632 #### [facility] [address] [place] [address] pH (U) 5.5 [pH] Invalid Interpretation Code 5.0-9.[address] [facility] Comment on above: Performed By: #### 2 059153, 1794350, 85166183, 7844971, 2765172, 5563125 #### [facility] [address] [place] [address] Protein (U) [Mass/Vol] Negative Normal Negative [facility] Comment on above: Performed By: #### 2 416649, 2734101, 25538622, 8400206, 0290413, 4364347 #### [facility] [address] [place] [address] Specific gravity (U) [Rel density] >=1.030 Invalid Interpretation Code 1.005-1.[address] [facility] Comment on above: Performed By: #### 2 189627, 4811071, 19219459, 2197834, 5969554, 3448313 #### [facility] [address] [place] [address] Type of Urine collection method Clean Catch Normal [facility] Comment on above: Performed By: #### 2 502644, 3741428, 30773334, 4638339, 3270301, 2135442 #### [facility] [address] [place], [place] [address] Urobilinogen Qn (U) 0.2 {Aly'U}/dL Normal 0.0-1.[address] [facility] Comment on above: Performed By: #### 2 850517, 1690840, 24966882, 5895910, 1442281, 4551676 #### [facility] [address] [place] [address] WBC Auto Ql (U) 2+ Abnormal Negative [facility] Comment on above: Performed By: #### 2 820346, 3977067, 24157154, 8283194, 9113738, 0558206 #### [facility] [address] [place] [address] WBC LM.HPF (Urine sed) [#/Area] 16-25 Abnormal 0-[address] [facility] Comment on above: Performed By: #### 2 933404, 3305959, 58976232, 9503211, 5390828, 4685504 #### [facility] [address] [place] [address] URINALYSISOrdered By: Elizabeth Shaikh on 03-22-2023 Bacteria [...] Interpretation Code Negative [facility] UA Auto SS Foss.plasma/Lithiu m.RBC (Bld) [Mass ratio] 0-3 /HPF Normal [...] [facility] UA Auto SS Urobilinogen Qn (U) 0.7619951 {Aly'U}/dL Normal 0.0 - 1.0 EU/dL [facility] UA Auto SS WBC Auto Ql (U) 2+ *ABN* (03/22/23 8:17 PM) Invalid Interpretation Code Negative [facility] UA Auto SS WBC LM.HPF (Urine sed) [#/Area] 16-25 /HPF Invalid Interpretation Code 0-5/HPF [facility] UA Auto SS eGFRon 03-22-2023 GFR/1.73 sq M.predicted among non-blacks MDRD (S/P/Bld) [Vol rate/Area] 133 mL/min/1.73 m2 Normal >=[address] [facility] Comment on above: Order Comment: Order added by Discern Expert. Result Comment: Engineering Associate vinh kidney disease could be indicated at eGFR's of less than 60 mL/min/1.73m2. Kidney failure is indicated at less than 15 mL/min/1.73m2. Performed By: #### 2 376900, 1613508, 57745255, 3603853, 9090478, 7169841 #### [facility] [address] [place] [address] Alanine aminotransferase [En zymatic activity/volume] in Serum or PlasmaOrdered By: Zurdo Ortega on 02-28-2023 ALT [Catalytic activity/Vol] 21 U/L [facility] HIV 1 and HIV-2 antibody ass ay with HIV-1 p24 antigen detectionOrdered By: Zurdo Ortega on 02-28-2023 HIV 1+2 Ab+HIV1 p24 Ag IA Ql Non-Reactive Non Reactive [facility] Comment on above: HIV NegativeHIV-1/HI V-2 antibodies and HIV-1 p24 antigen were NOTdetected. There is no laboratory evidence of HIV infection. Hepatitis B virus surface Ag [Presence] in Serum or Plasma by ImmunoassayOrdered By: Zurdo Ortega on 02-28-2023 HBV surface Ag IA Ql Negative Negative [facility] Comment on above: Performed at: [facility] [address] [id number] Director: Alexis Ashton PhD, Phone: [phone] Hepatitis C virus IgG Ab [Pr esence] in Serum or Plasma by ImmunoassayOrdered By: Zurdo Ortega on 02-28-2023 HCV IgG IA Ql Non-Reactive Non Reactive [facility] No Panel InformationOrdered By: Zurdo Ortega on 02-28-2023 Hepatitis C Interpretation See comment . [facility] Comment on above: Not infected with HC V unless early or acute infection issuspected (which may be delayed in an immunocompromisedindividual), or other evidence exists to indicate HCVinfection. Serum hepatitis B virus surf nikolas antibody detectionOrdered By: Zurdo Ortega on 02-28-2023 HBV surface Ab Ql (S) Reactive . [facility] Comment on above: Non Reactive: Incons istent with immunity, less than 10 mIU/mL Reactive: Consistent with immunity, greater than 9.9 mIU/mL PAP ACOG PANEL 2: 21 to 29on 12-17-2022 . . [facility] Comment on above: Performed By: #### 4 085478 #### [facility] [address] [place] [address] Dr. Regine Fortune Age Gdln ACOG Testing - [facility] Comment on above: Performed By: #### 4 764172 #### [facility] [address] [place] [address] [address] Regine Fortune DIAGNOSIS: Comment [facility] Comment on above: Result Comment: NEGA TIVE FOR INTRAEPITHELIAL LESION OR MALIGNANCY. Performed By: #### 4 324460 #### [facility] [address] [place] [address] [address] Regine Fortune Methodology: Comment [facility] Comment on above: Result Comment: This liquid based ThinPrep(R) pap test was screened with the use of an image guided system. Performed By: #### 4 620213 #### [facility] [address] [place] [address] [address] Regine Fortune Note: Comment [facility] [...] do occur. . Performed By: #### 4 917744 #### [facility] [address] [place] [address] [address] Regine Fortune Performed by: Comment Normal [facility] Comment on above: Result Comment: Amna Hernandes Financial Systems Analyst (ASCP) Performed By: #### 4 927603 #### [facility] [address] [place] [address] [address] Regine Fortune Reflex Criteria: Comment Normal [facility] Comment on above: Result Comment: The HPV DNA reflex criteria were not met with this specimen result therefore, no HPV testing was performed. . Performed By: #### 4 254920 #### [facility] [address] [place] [address] [address] Regine Fortune Specimen adequacy: Comment Normal [facility] Comment on above: Result Comment: Sati sfactory for evaluation. Endocervical and/or squamous metaplastic cells (endocervical component) are present. Areas of partially obscuring inflammatory exudate are present. Performed By: #### 4 706245 #### [facility] [address] [place] [address] [address] Regine Fortune Thyrotropin [Units/volume] i n Serum or PlasmaOrdered By: Brain Way on 12-10-2022 TSH Qn 2.86 m[IU]/L 0.45-5.33 [facility] Thyroxine (T4) free [Mass/vo lume] in Serum or PlasmaOrdered By: Brain Way on 12-10-2022 Free T4 [Mass/Vol] 0.94 ng/dL 0.61-1.12 [facility] Albumin [Mass/volume] in Ser um or PlasmaOrdered By: Ofelia Hester on 10-16-2022 Albumin [Mass/Vol] 4.1 g/dL 3.2-5.5 [facility] Alkaline phosphatase [Enzyma tic activity/volume] in Serum or PlasmaOrdered By: Ofelia Hester on 10-16-2022 ALP [Catalytic activity/Vol] 56 U/L 32-92 [facility] Amylaseon 10-16-2022 Amylase 43 U/L Normal 28-100 U/L [facility] Other Amylase [Enzymatic activity/ volume] in Serum or PlasmaOrdered By: Ofelia Hester on 10-16-2022 Amylase [Catalytic activity/Vol] 43 U/L 28-100 [facility] Aspartate aminotransferase [ Enzymatic activity/volume] in Serum or PlasmaOrdered By: Ofelia Hester on 10-16-2022 AST [Catalytic activity/Vol] 16 U/L 10-42 [facility] Bilirubin.total [Mass/volume ] in Serum or PlasmaOrdered By: Ofelia Hester on 10-16-2022 Bilirubin [Mass/Vol] 0.6 mg/dL 0.3-1.2 [facility] Calcium [Mass/volume] in Ser um or PlasmaOrdered By: Ofelia Hester on 10-16-2022 Calcium [Mass/Vol] 9.3 mg/dL 8.2-10.2 [facility] Carbon dioxide, total [Moles /volume] in Serum or PlasmaOrdered By: Ofelia Hester on 10-16-2022 CO2 [Moles/Vol] 22.1 mmol/L 22.0-30.0 [facility] Chloride [Moles/volume] in S ghada or PlasmaOrdered By: Ofelia Hester on 10-16-2022 Chloride [Moles/Vol] 105 mmol/L 95-114 [facility] Comprehensive Metabolic Pane samy 10-16-2022 Albumin [Mass/Vol] 4.230069 g/dL Normal 3.2-5.5 g/dL [facility] Other ALT [Catalytic activity/Vol] 17 U/L Normal 10-60 U/L [facility] Other Bilirubin [Mass/Vol] 0.5445747 mg/dL Normal 0.3- 1.2 mg/dL [facility] Other Calcium [Mass/Vol] 9.4628372 mg/dL Normal 8.2-10 .2 mg/dL [facility] Other CO2 [Moles/Vol] 22.88682621 mmol/L Normal 22.0-3 0.0 mmol/L [facility] Other Creatinine [Mass/Vol] 0.02231575 mg/dL Normal 0. 44-1.03 mg/dL [facility] Other Potassium [Moles/Vol] 4.86725869 mmol/L Normal 3 .5-5.1 mmol/L [facility] Other Protein [Mass/Vol] 6.002855 g/dL Normal 6.1-7.9 g/dL [facility] Other Comprehensive Metabolic Panel > 60 [facility] Other Comprehensive Metabolic Panel 2.5 g/dL [facility] Other Creatinine and Glomerular fi ltration rate.predicted panel (S/P/Bld)Ordered By: Ofelia Hester on 10-16-2022 Creatinine [Mass/Vol] 0.55 mg/dL 0.44-1.03 [facility] Estimated glomerular filtrat ion rate (GFR) non- AmericanOrdered By: Ofelia Hester on 10-16-2022 GFR/1.73 sq M.predicted among non-blacks MDRD (S/P/Bld) [Vol rate/Area] > 60 mL/Min [facility] Globulin Calc (S) [Mass/Vol] Ordered By: Ofelia Hester on 10-16-2022 Globulin (S) [Mass/Vol] 2.5 g/dL [facility] Glucose [Mass/volume] in Ser um or PlasmaOrdered By: Ofelia Hester on 10-16-2022 Glucose [Mass/Vol] 86 mg/dL 70-100 [facility] Comment on above: ADA recommended refe rence rangeRandom Glucose Reference Range is dependent on time and content of last meal. Glucose of more than 200 mg/dL in a nonstressed, ambulatory subject supports the diagnosis of Diabetes Mellitus. Laboratory - Chemistry and C hemistry - challengeOrdered By: Ofelia Hester on 10-16-2022 Lipase [Catalytic activity/Vol] 35.0 U/L 22-51 [facility] Lipaseon 10-16-2022 Lipase [Catalytic activity/Vol] 35.05116 U/L Normal 22-51 U/L [facility] Other No Panel InformationOrdered By: Ofelia Hester on 10-16-2022 Estimated GFR () > 60 mL/Min [facility] Comment on above: GFR estimated refere nce range: According to KDOQI guidelines, <60 ml/min/1.73m2 is sufficient to diagnose a patient with chronic kidney disease. Pharmacy Creatinine Clearance (Chem N/A [facility] Potassium [Moles/volume] in Serum or PlasmaOrdered By: Ofelia Hester on 10-16-2022 Potassium [Moles/Vol] 4.3 mmol/L 3.5-5.1 [facility] Protein [Mass/volume] in Ser um or PlasmaOrdered By: Ofelia Hester on 10-16-2022 Protein [Mass/Vol] 6.6 g/dL 6.1-7.9 [facility] Serum or plasma alanine galaviz otransferase measurement without P-5'-P (enzymatic activiOrdered By: Ofelia Hester on 10-16-2022 ALT No additional P-5'-P [Catalytic activity/Vol] 17 U/L 10 [facility] Serum or plasma albumin/glob ulin mass ratioOrdered By: Ofelia Hester on 10-16-2022 Albumin/Globulin [Mass ratio] 1.6 {ratio} [facility] Serum or plasma anion gap de terminationOrdered By: Ofelia Hester on 10-16-2022 Anion gap [Moles/Vol] 13.2 mmol/L 6.0-15.0 [facility] Sodium [Moles/volume] in Ser um or PlasmaOrdered By: Ofelia Hester on 10-16-2022 Sodium [Moles/Vol] 136 mmol/L 136-146 [facility] Urea nitrogen [Mass/volume] in Serum or PlasmaOrdered By: Ofelia Hester on 10-16-2022 Urea nitrogen [Mass/Vol] 11 mg/dL 05-08 [facility] T4 FREE/FREE THYROXon 2021 Free T4 [Mass/Vol] 1.3 ng/dL 0.9 - 1.7 ng/dL [facility] TSH BLDon 07-14-2022 TSH Qn 2.480 m[IU]/L 0.270 - 4.200 mIU/L [facility] VITAMIN B12 BLOODon 07-14-20 Cobalamin (Vitamin B12) [Mass/Vol] 267 pg/mL 232 - 1,245 pg/mL [facility] Quick Fluon 06-04-2022 FLUAV Ab CF (S) [Titer] Negative [facility] Other FLUBV Ab CF (S) [Titer] Negative [facility] Other Quick Strepon 06-04-2022 S. pyogenes Org specific cx Ql (Throat) Negative [facility] Other Quick Strep [facility] Other SARS-CoV-2 (COVID-19) RNA NA A+probe Ql (Resp)on 06-04-2022 SARS-CoV-2 (COVID-19) RNA LAUREN+probe Ql (Unsp spec) Negative [facility] Other TSH DL <= 0.005 mIU/L QnOrde red By: Darwin Jones on 04-14-2022 TSH Qn 6.39 m[IU]/L 0.45-5.33 [facility] Thyroxine (T4) free [Mass/vo lume] in Serum or PlasmaOrdered By: Darwin Jones on 04-14-2022 Free T4 [Mass/Vol] 0.82 ng/dL 0.61-1.12 [facility] Triiodothyronine (T3) Free [ Mass/volume] in Serum or PlasmaOrdered By: Darwin Jones on 04-14-2022 Free T3 [Mass/Vol] 4.08 pg/mL 2.50-3.90 [facility] Serum or plasma calcium luis urement (mass/volume)Ordered By: Saad Valera on 04-06-2022 Calcium [Mass/Vol] 9.4 mg/dL 8.2-10.2 [facility] Serum or plasma intact parat hyroid hormone measurement (mass/volume)Ordered By: Saad Valera on 04-06-2022 Parathyrin.intact [Mass/Vol] 54.8 pg/mL [facility] CHEMISTRYOrdered By: Lab ROP User on 02-18-2022 Glucose [Mass/Vol] 106 mg/dL High 55 - 99 mg/dL [facility] POC Subsection Comment on above: Result Comment: Aurelia colemand Meter POC Device SN [id number] Invalid Interpretation Code [facility] POC Subsection POC User ID [id number] Invalid Interpretation Code [facility] POC Subsection POC Username OBINNA EPPERSON Invalid Interpretation Code [facility] POC Subsection Serum or plasma thyroglobuli n antibody assay (units/volume)Ordered By: Darwin Jones on 02-13-2022 Thyroglobulin Ab Qn 971.2 [IU]/mL 0.0-0.9 [facility] Comment on above: Thyroglobulin Antibo dy measured by [facility] Methodology Performed at: [facility] [id number] Non Acoustic Operator: Alexis Ashton PhD, Phone: [phone] Serum or plasma thyroperoxid ase antibody assay (units/volume)Ordered By: Darwin Jones on 02-13-2022 TPO Ab Qn 327 [IU]/mL 0-34 [facility] Thyroxine (T4) free [Mass/vo lume] in Serum or PlasmaOrdered By: Darwin Jones on 02-13-2022 Free T4 [Mass/Vol] 0.66 ng/dL 0.61-1.12 [facility] Triiodothyronine (T3) Free [ Mass/volume] in Serum or PlasmaOrdered By: Darwin Jones on 02-13-2022 Free T3 [Mass/Vol] 4.04 pg/mL 2.50-3.90 [facility] Albumin [Mass/volume] in Ser um or PlasmaOrdered By: Addi Ortega on 02-10-2022 Albumin [Mass/Vol] 4.1 g/dL 3.2-5.5 [facility] Basophils Auto (Bld) [#/Vol] Ordered By: Addi Ortega on 02-10-2022 Basophils (Bld) [#/Vol] 0.0 10*3/uL 0.0-0.2 [facility] Basophils/100 WBC Auto (Bld) Ordered By: Addi Ortega on 02-10-2022 Basophils/100 WBC (Bld) 0.4 % . [facility] Blood hemoglobin measurement (mass/volume)Ordered By: Addi Ortega on 02-10-2022 Hemoglobin (Bld) [Mass/Vol] 14.1 g/dL 11.8-15.4 [facility] Blood leukocytes automated c ount (number/volume)Ordered By: Addi Ortega on 02-10-2022 WBC (Bld) [#/Vol] 7.3 10*3/uL 4.5-11.0 [facility] Cholesterol [Mass/volume] in Serum or PlasmaOrdered By: Addi Ortega on 02-10-2022 Cholesterol [Mass/Vol] 195 mg/dL 140-200 [facility] Comment on above: Chol less than 200 m g/dl low risk Chol 201-239 mg/dl borderline risk Chol 240 mg/dl and greater high risk Cholesterol in LDL Calc [Mas s/Vol]Ordered By: Addi Ortega on 02-10-2022 Cholesterol in LDL [Mass/Vol] 113 mg/dL 0-100 [facility] Comment on above: LDL ATP III CLASSIFI CATION LDL less than 100 mg/dL Optimal LDL 100-129 mg/dL Near or above optimal LDL 130-159 mg/dL Borderline high LDL 160-189 mg/dL High LDL greater than 189 mg/dL Very high Cholesterol in VLDL Calc [Ma ss/Vol]Ordered By: Addi Ortega on 02-10-2022 Cholesterol in VLDL [Mass/Vol] 26 mg/dL [facility] Creatinine and Glomerular fi ltration rate.predicted panel (S/P/Bld)Ordered By: Adid Ortega on 02-10-2022 Creatinine [Mass/Vol] 0.71 mg/dL 0.44-1.03 [facility] Eosinophils Auto (Bld) [#/Vo l]Ordered By: Addi Ortega on 02-10-2022 Eosinophils (Bld) [#/Vol] 0.1 10*3/uL 0.0-0.45 [facility] Eosinophils/100 WBC Auto (Bl d)Ordered By: Addi Ortega on 02-10-2022 Eosinophils/100 WBC (Bld) 1.5 % . [facility] Erythrocyte distribution wid th Auto (RBC) [Ratio]Ordered By: Addi Ortega on 02-10-2022 Erythrocyte distribution width (RBC) [Ratio] 14.0 % 11.9-15.3 [facility] Estimated glomerular filtrat ion rate (GFR) non- AmericanOrdered By: Addi Ortega on 02-10-2022 GFR/1.73 sq M.predicted among non-blacks MDRD (S/P/Bld) [Vol rate/Area] > 60 mL/Min [facility] Globulin Calc (S) [Mass/Vol] Ordered By: Addi Ortega on 02-10-2022 Globulin (S) [Mass/Vol] 2.8 g/dL [facility] Hematocrit Auto (Bld) [Volum e fraction]Ordered By: Addi Ortega on 02-10-2022 Hematocrit (Bld) [Volume fraction] 40.3 % 34.0-46.4 [facility] Laboratory - Chemistry and C hemistry - challengeOrdered By: Addi Ortega on 02-10-2022 Glucose [Mass/Vol] 90 mg/dL 70-100 [facility] Laboratory - Hematology and Cell countsOrdered By: Addi Ortega on 02-10-2022 Nucleated RBC/100 WBC (Bld) [Ratio] 0.1 % 0-0.5 [facility] Lymphocytes Auto (Bld) [#/Vo l]Ordered By: Addi Ortega on 02-10-2022 Lymphocytes (Bld) [#/Vol] 3.3 10*3/uL 1.00-4.8 [facility] Lymphocytes/100 WBC Auto (Bl d)Ordered By: Addi Ortega on 02-10-2022 Lymphocytes/100 WBC (Bld) 45.2 % . [facility] MCH Auto (RBC) [Entitic mass ]Ordered By: Addi Ortega on 02-10-2022 MCH (RBC) [Entitic mass] 33.0 pg 24.7-34.3 [facility] MCHC Auto (RBC) [Mass/Vol]Or dered By: Addi Ortega on 02-10-2022 MCHC (RBC) [Mass/Vol] 34.9 g/dL 32.0-35.0 [facility] MCV Auto (RBC) [Entitic vol] Ordered By: Addi Ortega on 02-10-2022 MCV (RBC) [Entitic vol] 94.6 fL 80-100 [facility] Monocyte %Ordered By: Addi Ortega on 02-10-2022 Monocyte % 134 mg/dL 35-149 [facility] Comment on above: TRIG ATP III CLASSIF ICATION TRIG less than 150 mg/dL Normal TRIG 150-199 mg/dL Borderline high TRIG 200-500 mg/dL High TRIG greater than 500 mg/dL Very high Standard traceable to the Center for Disease Conrtrol and Prevention (CDC) test method. Monocytes Auto (Bld) [#/Vol] Ordered By: Addi Ortega on 02-10-2022 Monocytes (Bld) [#/Vol] 0.5 10*3/uL 0.0-0.8 [facility] Monocytes/100 WBC Auto (Bld) Ordered By: Addi Ortega on 02-10-2022 Monocytes/100 WBC (Bld) 6.3 % . [facility] Neutrophils Auto (Bld) [#/Vo l]Ordered By: Addi Ortega on 02-10-2022 Neutrophils (Bld) [#/Vol] 3.4 10*3/uL 1.8-7.7 [facility] Neutrophils/100 WBC Auto (Bl d)Ordered By: Addi Ortega on 02-10-2022 Neutrophils/100 WBC (Bld) 46.6 % . [facility] No Panel InformationOrdered By: Addi Ortega on 02-10-2022 Estimated GFR () > 60 mL/Min [facility] Comment on above: GFR estimated refere nce range: According to KDOQI guidelines, <60 ml/min/1.73m2 is sufficient to diagnose a patient with chronic kidney disease. Nicotine Metabolite Negative Cutoff=[address] [facility] Comment on above: Performed at: [address] [id number] Non Acoustic Operator: Catherine Mendoza MD, Phone: [phone] Pharmacy Creatinine Clearance (Chem N/A [facility] Platelet mean volume Auto (B ld) [Entitic vol]Ordered By: Addi Ortega on 02-10-2022 Platelet mean volume (Bld) [Entitic vol] 8.4 fL 6.3-10.7 [facility] Platelets Auto (Bld) [#/Vol] Ordered By: Addi Ortega on 02-10-2022 Platelets (Bld) [#/Vol] 321 10*3/uL 150-450 [facility] Protein [Mass/volume] in Ser um or PlasmaOrdered By: Addi Ortega on 02-10-2022 Protein [Mass/Vol] 6.9 g/dL 6.1-7.9 [facility] RBC Auto (Bld) [#/Vol]Ordere d By: Addi Ortega on 02-10-2022 RBC (Bld) [#/Vol] 4.26 10*6/uL 3.60-5.[address] [facility] Serum or plasma alanine galaviz otransferase measurement without P-5'-P (enzymatic activiOrdered By: Addi Ortega on 02-10-2022 ALT No additional P-5'-P [Catalytic activity/Vol] 26 U/L 10-60 [facility] Serum or plasma albumin/glob ulin mass ratioOrdered By: Addi Ortega on 02-10-2022 Albumin/Globulin [Mass ratio] 1.5 {ratio} [facility] Serum or plasma alkaline hosea sphatase measurement (enzymatic activity/volume)Ordered By: Addi Ortega on 02-10-2022 ALP [Catalytic activity/Vol] 47 U/L 32-92 [facility] Serum or plasma aspartate am inotransferase measurement (enzymatic activity/volume)Ordered By: Addi Ortega on 02-10-2022 AST [Catalytic activity/Vol] 18 U/L 10-42 [facility] Serum or plasma calcium luis urement (mass/volume)Ordered By: Addi Ortega on 02-10-2022 Calcium [Mass/Vol] 9.3 mg/dL 8.2-10.2 [facility] Serum or plasma chloride radha surement (moles/volume)Ordered By: Addi Ortega on 02-10-2022 Chloride [Moles/Vol] 99 mmol/L 95-114 [facility] Serum or plasma high density lipoprotein (HDL) cholesterol measurementOrdered By: Addi Ortega on 02-10-2022 Cholesterol in HDL [Mass/Vol] 55 mg/dL 35-85 [facility] Comment on above: HDL CHOL ATP-III CLA SSIFICATION Cardiovascular Risk HDL > or equal to 60 mg/dL LOW HDL < 40 mg/dL HIGH Serum or plasma potassium me asurement (moles/volume)Ordered By: Addi Ortega on 02-10-2022 Potassium [Moles/Vol] 4.1 mmol/L 3.5-5.1 [facility] Serum or plasma sodium measu rement (moles/volume)Ordered By: Addi Ortega on 02-10-2022 Sodium [Moles/Vol] 135 mmol/L 136-146 [facility] Serum or plasma total biliru bin measurement (mass/volume)Ordered By: Addi Ortega on 02-10-2022 Bilirubin [Mass/Vol] 0.7 mg/dL 0.3-1.2 [facility] Serum or plasma total carbon dioxide measurement (moles/volume)Ordered By: Addi Ortega on 02-10-2022 CO2 [Moles/Vol] 23.3 mmol/L 22.0-30.0 [facility] Serum or plasma total choles terol/high density lipoprotein (HDL) cholesterol mass ratOrdered By: Addi Ortega on 02-10-2022 Cholesterol.total/Cho lesterol in HDL [Mass ratio] 3.5 {ratio} <5.0 [facility] Serum or plasma urea nitroge n measurement (mass/volume)Ordered By: Addi Ortega on 02-10-2022 Urea nitrogen [Mass/Vol] 17 mg/dL 9-23 [facility] TSH DL <= 0.005 mIU/L QnOrde red By: Addi Ortega on 02-10-2022 TSH Qn 57.67 m[IU]/L 0.45-5.33 [facility] No Panel Informationon 09-03 6 {mm/hr} Normal 0-34 -[facility] [address] DO Work Phone: Office Visit (Cardiology)on 01-19-2022 Follow-up visit Diagnoses/Problems Assessed Chest pain, atypical [...] Vital Signs Recorded: 03Sep2021 10:02AMRecorded: 03Sep2021 09:55AM [id number], LUE, [id number], RUE, Sitting [id number], LUE, [id number], RUE, Sitting Heart Rate72, Apical Height5 ft 7 in [id number] lb 9.6 oz BMI Iyuhyzbzij00.36 kg/m2 BSA Calculated2.05 Tobacco Useb) No EKG [...] 022 Tobacco use status CPHS b) No -[facility] [address] DO Work Phone: Vital Signs Date Time Vital Sign Value Performing Clinician Facility 10-18-2024 10:21-0500 Body mass index (BMI) [Ratio] 41.35 kg/m2 Mya MCMILLAN Work Phone: [facility] 10-18-2024 10:21-0500 Body weight 119.75 kg Mya MCMILLAN Work Phone: [facility] 10-18-2024 10:21-0500 Diastolic blood pressure 80 mm[Hg] Mya MCMILLAN Work Phone: [facility] 10-18-2024 10:21-0500 Systolic blood pressure 120 mm[Hg] Mya MCMILLAN Work Phone: [facility] 10-14-2024 09:03-0500 Blood Pressure Location Lesley Blanco [facility] 10-14-2024 09:03-0500 Body temperature 98.24 [degF] Lesley Blanco [facility] 10-14-2024 09:03-0500 Diastolic blood pressure 72 mm[Hg] Lesley Blanco [facility] 10-14-2024 09:03-0500 Heart rate 118 /min Lesley Blanco [facility] 10-14-2024 09:03-0500 SaO2% (BldA) [Mass fraction] 99 % [facility] 10-14-2024 09:03-0500 Systolic blood pressure 114 mm[Hg] Lesley Blanco [facility] 10-10-2024 11:02-0500 Body mass index (BMI) [Ratio] 40.79 kg/m2 Brain Seamus DO Work Phone: [facility] 10-10-2024 11:02-0500 Body weight 118.12 kg Brain Seamus DO Work Phone: [facility] 10-10-2024 11:02-0500 Diastolic blood pressure 78 mm[Hg] Brain Seamus DO Work Phone: [facility] 10-10-2024 11:02-0500 Systolic blood pressure 114 mm[Hg] Brain Seamus DO Work Phone: [facility] 10-05-2024 14:20-0500 Body mass index (BMI) [Ratio] 40.72 kg/m2 Mya MCMILLAN Work Phone: [facility] 10-05-2024 14:20-0500 Body weight 117.94 kg Mya MCMILLAN Work Phone: [facility] 10-05-2024 14:20-0500 Diastolic blood pressure 70 mm[Hg] Mya MCMILLAN Work Phone: [facility] 10-05-2024 14:20-0500 Systolic blood pressure 120 mm[Hg] Mya Finch PA Work Phone: [facility] 09-19-2024 14:33-0500 Body mass index (BMI) [Ratio] 39.49 kg/m2 Brain Seamus DO Work Phone: [facility] 09-19-2024 14:33-0500 Body weight 114.36 kg Brain Seamus DO Work Phone: [facility] 09-19-2024 14:33-0500 Diastolic blood pressure 70 mm[Hg] Brain Seamus DO Work Phone: [facility] 09-19-2024 14:33-0500 Systolic blood pressure 120 mm[Hg] Brain Way DO Work Phone: [facility] 09-07-2024 14:44-0500 Body mass index (BMI) [Ratio] 39.75 kg/m2 Mya Finch PA Work Phone: [facility] 09-07-2024 14:44-0500 Body weight 115.12 kg Mya Finch PA Work Phone: [facility] 09-07-2024 14:44-0500 Diastolic blood pressure 82 mm[Hg] Mya Finch PA Work Phone: [facility] 09-07-2024 14:44-0500 Systolic blood pressure 120 mm[Hg] Mya Finch PA Work Phone: [facility] 09-06-2024 14:04-0500 Body temperature 97.88 [degF] [facility] 09-06-2024 14:04-0500 Diastolic blood pressure 77 mm[Hg] [facility] 09-06-2024 14:04-0500 Heart rate 101 /min [facility] 09-06-2024 14:04-0500 Respiratory rate 18 /min [facility] 09-06-2024 14:04-0500 SaO2% (BldA) [Mass fraction] 99 % [facility] 09-06-2024 14:04-0500 Systolic blood pressure 122 mm[Hg] [facility] 09-05-2024 15:45-0500 Hourly Rounding [facility] Comment on above: Result Comment: discharge instructions jessica oswald. monitors off and pt up to dress. 09-05-2024 15:35-0500 Hour[facility] Rounding [facility] Comment on above: Result Comment: pt was able to keep spri te and lemon ice down. Wants to go home. 09-05-2024 14:49-0500 Hourly Rounding [facility] Comment on above: Result Comment: sprite, lemon ice and ju ice given per pt request. 09-05-2024 07:35-0500 Body temperature 98.24 [degF] [facility] 09-05-2024 07:35-0500 Diastolic blood pressure 42 mm[Hg] [facility] 09-05-2024 07:35-0500 Heart rate 109 /min [facility] 09-05-2024 07:35-0500 Mean blood pressure 65 mm[Hg] [facility] 09-05-2024 07:35-0500 Respiratory rate 18 /min [facility] 09-05-2024 07:35-0500 Systolic blood pressure 111 mm[Hg] [facility] 09-05-2024 07:30-0500 Blood Pressure Location [facility] 09-05-2024 04:32-0500 Blood Pressure Location [facility] 09-05-2024 04:32-0500 Body temperature 98.24 [degF] [facility] 09-05-2024 04:32-0500 Diastolic blood pressure 72 mm[Hg] [facility] 09-05-2024 04:32-0500 Heart rate 104 /min [facility] 09-05-2024 04:32-0500 Mean blood pressure 90 mm[Hg] [facility] 09-05-2024 04:32-0500 Respiratory rate 16 /min [facility] 09-05-2024 04:32-0500 SaO2% (BldA) [Mass fraction] 98 % [facility] 09-05-2024 04:32-0500 Systolic blood pressure 127 mm[Hg] [facility] 09-05-2024 04:00-0500 Diastolic blood pressure 64 mm[Hg] [facility] 09-05-2024 04:00-0500 Heart rate 115 /min [facility] 09-05-2024 04:00-0500 Mean blood pressure 86 mm[Hg] [facility] 09-05-2024 04:00-0500 Systolic blood pressure 129 mm[Hg] [facility] 09-05-2024 03:06-0500 Body temperature 97.7 [degF] [facility] 09-05-2024 03:06-0500 Heart rate 128 /min [facility] 09-05-2024 03:06-0500 Respiratory rate 20 /min [facility] 09-05-2024 03:06-0500 SaO2% (BldA) [Mass fraction] 98 % [facility] 08-25-2024 12:21-0500 Body height 170.18 cm Darwin Easterwood [employer] ME[employer]IC Work Phone: [facility] 08-25-2024 12:21-0500 Body mass index (BMI) [Ratio] 39.6 kg/m2 Darwin Easterwood [employer]LLISION MECH[employer]IC Work Phone: [facility] 08-25-2024 12:21-0500 Body weight 114.75 kg Darwin Easterwood COLLISION MECHANIC Work Phone: [facility] 08-25-2024 12:21-0500 Diastolic blood pressure 84 mm[Hg] Darwin Easterwood [employer]LLISION MECHANIC Work Phone: [facility] 08-25-2024 12:21-0500 Heart rate 108 /min Darwin Easterwood COLLISION MECHANIC Work Phone: [facility] 08-25-2024 12:21-0500 Respiratory rate 18 /min Darwin Easterwood COLLISION MECHANIC Work Phone: [facility] 08-25-2024 12:21-0500 SaO2% (BldA) [Mass fraction] 98 % Darwin Easterwood COLLISION MECHANIC Work Phone: [facility] 08-25-2024 12:21-0500 Systolic blood pressure 132 mm[Hg] Darwin Easterwood COLLISION MECHANIC Work Phone: [facility] 08-23-2024 11:00-0500 Body mass index (BMI) [Ratio] 40.16 kg/m2 Brain Seamus DO Work Phone: [facility] 08-23-2024 11:00-0500 Body weight 116.3 kg Brain Seamus DO Work Phone: [facility] 08-23-2024 11:00-0500 Diastolic blood pressure 78 mm[Hg] Brain Seamus DO Work Phone: [facility] 08-23-2024 11:00-0500 Systolic blood pressure 120 mm[Hg] Brain Seamus DO Work Phone: [facility] 07-11-2024 13:09-0500 Body mass index (BMI) [Ratio] 38.97 kg/m2 Brain Seamus DO Work Phone: [facility] 07-11-2024 13:09-0500 Body weight 112.86 kg Brain Seamus DO Work Phone: [facility] 07-11-2024 13:09-0500 Diastolic blood pressure 76 mm[Hg] Brain Seamus DO Work Phone: [facility] 07-11-2024 13:09-0500 Systolic blood pressure 120 mm[Hg] Brain Seamus DO Work Phone: [facility] 06-28-2024 08:04-0500 Body weight Darwin Jones APRN Work Phone: [facility] Comment on above: Not provided. 2024 14:13-0500 Diastolic blood pressure 78 mm[Hg] Hayden Reilly MD Work Phone: [facility] 2024 14:13-0500 Heart rate 88 /min Hayden Reilly MD Work Phone: [facility] 2024 14:13-0500 Systolic blood pressure 125 mm[Hg] Hayden Reilly MD Work Phone: [facility] 2024 13:18-0500 Body height 170.2 cm Hayden Reilly MD Work Phone: [facility] 06-12-2024 10:19-0400 Body mass index (BMI) [Ratio] 38.37 kg/m2 Brain Seamus DO Work Phone: [facility] 06-12-2024 10:19-0400 Body weight 111.13 kg Brain Seamus DO Work Phone: [facility] 06-12-2024 10:19-0400 Diastolic blood pressure 80 mm[Hg] Brain Seamus DO Work Phone: [facility] 06-12-2024 10:19-0400 Systolic blood pressure 122 mm[Hg] Brain Seamus DO Work Phone: [facility] 05-11-2024 11:04-0400 Body height 170.18 cm COLLISION MECHANIC Darwin Easterwood Work Phone: [facility] 05-11-2024 11:04-0400 Body mass index (BMI) [Ratio] 38.2 kg/m2 [employer]LL[employer] MECH[employer]IC Darwin Easterwood Work Phone: [phone](515)[phone] [address] 05-11-2024 11:04-0400 Body temperature 97.8 [degF] COLLISION MECHANIC Darwin Easterwood Work Phone: [phone])[phone] [place] [address] 05-11-2024 11:04-0400 Body weight 110.67 kg COLLISION MECHANIC Darwin Easterwood Work Phone: [phone])[phone] [place] [address] 05-11-2024 11:04-0400 Diastolic blood pressure 74 mm[Hg] COLLISION MECHANIC Darwin Easterwood Work Phone: [facility] 05-11-2024 11:04-0400 Heart rate 90 /min COLLISION MECHANIC Darwin Easterwood Work Phone: [facility] 05-11-2024 11:04-0400 Respiratory rate 20 /min COLLISION MECHANIC Darwin Easterwood Work Phone: [facility] 05-11-2024 11:04-0400 SaO2% (BldA) [Mass fraction] 98 % COLLISION MECHANIC Darwin Easterwood Work Phone: [facility] 05-11-2024 11:04-0400 Systolic blood pressure 126 mm[Hg] COLLISION MECHANIC Darwin Easterwood Work Phone: [facility] 05-10-2024 13:50-0400 Body mass index (BMI) [Ratio] 38.39 kg/m2 Brain Seamus DO Work Phone: [facility] 05-10-2024 13:50-0400 Body weight 111.19 kg Brain Seamus DO Work Phone: [facility] 05-10-2024 13:50-0400 Diastolic blood pressure 76 mm[Hg] Brain Seamus DO Work Phone: [facility] 05-10-2024 13:50-0400 Systolic blood pressure 120 mm[Hg] Brain Seamus DO Work Phone: [facility] 04-20-2024 10:37-0400 Body mass index (BMI) [Ratio] 38.53 kg/m2 Brain Seamus DO Work Phone: [facility] 04-20-2024 10:37-0400 Body weight 111.58 kg Brain Seamus DO Work Phone: [facility] 04-20-2024 10:37-0400 Diastolic blood pressure 76 mm[Hg] Brain Seamus DO Work Phone: [facility] 04-20-2024 10:37-0400 Systolic blood pressure 122 mm[Hg] Brain Seamus DO Work Phone: [facility] 04-07-2024 09:42-0400 Body mass index (BMI) [Ratio] 38.86 kg/m2 [facility] 04-07-2024 09:42-0400 Body weight 112.55 kg [facility] 04-07-2024 09:42-0400 Diastolic blood pressure 70 mm[Hg] [facility] 04-07-2024 09:42-0400 Systolic blood pressure 120 mm[Hg] [facility] 03-18-2024 11:50-0400 Diastolic blood pressure 83 mm[Hg] [facility] 03-18-2024 11:50-0400 Heart rate 75 /min [facility] 03-18-2024 11:50-0400 Mean blood pressure 97 mm[Hg] [facility] 03-18-2024 11:50-0400 Respiratory rate 16 /min [facility] 03-18-2024 11:50-0400 SaO2% (BldA) [Mass fraction] 98 % [facility] 03-18-2024 11:50-0400 Systolic blood pressure 126 mm[Hg] [facility] 03-18-2024 09:46-0400 Hourly Rounding [facility] 03-18-2024 09:11-0400 Hourly Rounding [facility] 03-18-2024 08:10-0400 Body temperature 98.6 [degF] [facility] 03-18-2024 08:10-0400 Diastolic blood pressure 91 mm[Hg] [facility] 03-18-2024 08:10-0400 Heart rate 98 /min [facility] 03-18-2024 08:10-0400 Hourly Rounding [facility] 03-18-2024 08:10-0400 Respiratory rate 17 /min [facility] 03-18-2024 08:10-0400 SaO2% (BldA) [Mass fraction] 98 % [facility] 03-18-2024 08:10-0400 Systolic blood pressure 135 mm[Hg] [facility] 06-11-2024 08:59-0400 Body height 170.18 cm COLLISION MECHANIC Darwin Easterwood Work Phone: [facility] 01-25-2024 08:59-0400 Body mass index (BMI) [Ratio] 37.4 kg/m2 [employer]LLISION MECHANIC Darwin Easterwood Work Phone: [facility] 01-25-2024 08:59-0400 Body temperature 98 [degF] COLLISION MECHANIC Darwin Easterwood Work Phone: [facility] 01-25-2024 08:59-0400 Body weight 108.4 kg COLLISION MECHANIC Darwin Easterwood Work Phone: [facility] 01-25-2024 08:59-0400 Diastolic blood pressure 80 mm[Hg] COLLISION MECHANIC Darwin Easterwood Work Phone: [facility] 01-25-2024 08:59-0400 Heart rate 98 /min COLLISION MECHANIC Darwin Easterwood Work Phone: [facility] 01-25-2024 08:59-0400 Respiratory rate 20 /min COLLISION MECHANIC Darwin Easterwood Work Phone: [facility] 01-25-2024 08:59-0400 SaO2% (BldA) [Mass fraction] 99 % COLLISION MECHANIC Darwin Easterwood Work Phone: [facility] 01-25-2024 08:59-0400 Systolic blood pressure 122 mm[Hg] COLLISION MECHANIC Darwin Easterwood Work Phone: [facility] 12-24-2023 09:56-0400 Body height 170.18 cm COLLISION MECHANIC Darwin Easterwood Work Phone: [facility] 12-24-2023 09:56-0400 Body mass index (BMI) [Ratio] 37.7 kg/m2 COLLISION MECHANIC Darwin Easterwood Work Phone: [facility] 12-24-2023 09:56-0400 Body temperature 97.6 [degF] COLLISION MECHANIC Darwin Easterwood Work Phone: [facility] 12-24-2023 09:56-0400 Body weight 109.31 kg COLLISION MECHANIC Darwin Eastermacy Work Phone: [facility] 12-24-2023 09:56-0400 Diastolic blood pressure 84 mm[Hg] COLLISION MECHANIC Darwin Easterwood Work Phone: [facility] 12-24-2023 09:56-0400 Heart rate 102 /min COLLISION MECHANIC Darwin Eastermacy Work Phone: [facility] 12-24-2023 09:56-0400 Respiratory rate 20 /min COLLISION MECHANIC Darwin Eastermacy Work Phone: [facility] 12-24-2023 09:56-0400 SaO2% (BldA) [Mass fraction] 98 % COLLISION MECHANIC Darwin Eastermacy Work Phone: [facility] 12-24-2023 09:56-0400 Systolic blood pressure 126 mm[Hg] COLLISION MECHANIC Darwin Eastermacy Work Phone: [facility] 11-25-2023 09:01-0400 Body height 170.18 cm COLLISION MECHANIC Darwin Eastermacy Work Phone: [facility] 11-25-2023 09:01-0400 Body mass index (BMI) [Ratio] 37.7 kg/m2 COLLISION MECHANIC Darwin Eastermacy Work Phone: [facility] 11-25-2023 09:01-0400 Body temperature 97 [degF] COLLISION MECHANIC Darwin Easterwood Work Phone: [facility] 11-25-2023 09:01-0400 Body weight 109.31 kg COLLISION MECHANIC Darwin Easterwood Work Phone: [facility] 11-25-2023 09:01-0400 Diastolic blood pressure 76 mm[Hg] COLLISION MECHANIC Darwin Easterwood Work Phone: [facility] 11-25-2023 09:01-0400 Heart rate 95 /min COLLISION MECHANIC Darwin Jonesermacy Work Phone: [facility] 11-25-2023 09:01-0400 Respiratory rate 20 /min COLLISION MECHANIC Darwin Jonesermacy Work Phone: [facility] 11-25-2023 09:01-0400 SaO2% (BldA) [Mass fraction] 98 % COLLISION MECHANIC Darwin Jones Work Phone: [facility] 11-25-2023 09:01-0400 Systolic blood pressure 120 mm[Hg] COLLISION MECHANIC Darwin Jones Work Phone: [facility] 11-18-2023 08:03-0400 Body weight 110.68 kg Ruby Whittington MD Work Phone: [facility] 11-18-2023 08:03-0400 Diastolic blood pressure 92 mm[Hg] Ruby Whittington MD Work Phone: [facility] 11-18-2023 08:03-0400 Heart rate 100 /min Ruby Whittington MD Work Phone: [facility] 11-18-2023 08:03-0400 Systolic blood pressure 132 mm[Hg] Ruby Whittington MD Work Phone: [facility] 10-20-2023 09:05-0500 Body height 170.18 cm COLLISION MECHANICAkilah Orosco Robert Work Phone: [facility] 10-20-2023 09:05-0500 Body mass index (BMI) [Ratio] 38.3 kg/m2 COLLISION MECHANIC Darwin Jones Work Phone: [facility] 10-20-2023 09:05-0500 Body temperature 98 [degF] COLLISION MECHANIC Darwin Jones Work Phone: [facility] 10-20-2023 09:05-0500 Body weight 111.13 kg COLLISION MECHANICAkilah Jones Work Phone: [facility] 10-20-2023 09:05-0500 Diastolic blood pressure 78 mm[Hg] SHIRLEY Jones Work Phone: [facility] 10-20-2023 09:05-0500 Heart rate 82 /min COLLISION MECHANICAkilah Jones Work Phone: [facility] 10-20-2023 09:05-0500 Respiratory rate 20 /min COLLISION MECHANICAkilah Jones Work Phone: [facility] 10-20-2023 09:05-0500 SaO2% (BldA) [Mass fraction] 98 % SHIRLEY Jones Work Phone: [facility] 10-20-2023 09:05-0500 Systolic blood pressure 124 mm[Hg] SHIRLEY Jones Work Phone: [facility] 09-29-2023 10:41-0500 Blood Pressure Location Tyrone Rock [facility] 09-29-2023 10:41-0500 Body temperature 98.24 [degF] Tyrone Rock [facility] 09-29-2023 10:41-0500 Diastolic blood pressure 78 mm[Hg] Tyrone Pranav [facility] 09-29-2023 10:41-0500 Heart rate 95 /min Tyrone Polancopsey [facility] 09-29-2023 10:41-0500 SaO2% (BldA) [Mass fraction] 97 % Tyrone Polancopsey [facility] 09-29-2023 10:41-0500 Systolic blood pressure 122 mm[Hg] Tyrone Rock [facility] 09-21-2023 09:00-0500 Body height 170.18 cm Darwin Easterwood Other [employer] Other 09-21-2023 09:00-0500 Body mass index (BMI) [Ratio] 38.37 kg/m2 Darwin Easterwood Other [facility] Other 09-21-2023 09:00-0500 Body temperature 98 [degF] Darwin Easterwood Other [facility] Other 09-21-2023 09:00-0500 Body weight 111.13 kg Darwin Easterwood Other [facility] Other 09-21-2023 09:00-0500 Diastolic blood pressure 84 mm[Hg] Darwin Easterwood Other [facility] Other 09-21-2023 09:00-0500 Respiratory rate 20 /min Darwin Easterwood Other [facility] Other 09-21-2023 09:00-0500 SaO2% (BldA) [Mass fraction] 98 % Darwin Easterwood Other [facility] Other 09-21-2023 09:00-0500 Systolic blood pressure 126 mm[Hg] Darwin Easterwood Other [facility] Other 08-25-2023 09:30-0500 Body height 170.18 cm Darwin Easterwood Other [facility] 08-25-2023 09:30-0500 Body mass index (BMI) [Ratio] 39.46 kg/m2 Darwin Easterwood Other [facility] Other 08-25-2023 09:30-0500 Body temperature 97.6 [degF] Darwin Easterwood Other [facility] Other 08-25-2023 09:30-0500 Body weight 114.31 kg Darwin Easterwood Other [facility] Other 08-25-2023 09:30-0500 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: [facility] 08-25-2023 09:30-0500 Diastolic blood pressure 80 mm[Hg] Darwin Easterwood Other [facility] 08-25-2023 09:30-0500 Respiratory rate 20 /min Darwin Easterwood Other [facility] Other 08-25-2023 09:30-0500 SaO2% (BldA) [Mass fraction] 98 % Darwin Easterwood Other [employer] [facility] Other 08-25-2023 09:30-0500 Systolic blood pressure 120 mm[Hg] Darwin Easterwood Other [facility] 07-23-2023 09:30-0500 Body height 170.18 cm COLLISION MECHANIC Darwin Easterwood Work Phone: [facility] 07-23-2023 09:30-0500 Body weight 116.57 kg COLLISION MECHANIC Darwin Easterwood Work Phone: [facility] 07-23-2023 09:30-0500 Diastolic blood pressure 80 mm[Hg] COLLISION MECHANIC Darwin Easterwood Work Phone: [facility] 07-23-2023 09:30-0500 Systolic blood pressure 118 mm[Hg] COLLISION MECHANIC Darwin Easterwood Work Phone: [facility] 06-23-2023 09:30-0500 Body height 170.18 cm Darwin Easterwood Other [facility] Other 06-23-2023 09:30-0500 Body mass index (BMI) [Ratio] 40.4 kg/m2 Darwin Easterwood Other [facility] Other 06-23-2023 09:30-0500 Body temperature 97.4 [degF] Darwin Easterwood Other [facility] Other 06-23-2023 09:30-0500 Body weight 117.03 kg Darwin Easterwood Other [facility] Other 06-23-2023 09:30-0500 Diastolic blood pressure 78 mm[Hg] Darwin Easterwood Other [facility] Other 06-23-2023 09:30-0500 Respiratory rate 20 /min Darwin Easterwood Other [facility] Other 06-23-2023 09:30-0500 SaO2% (BldA) [Mass fraction] 98 % Darwin Easterwood Other [facility] Other 06-23-2023 09:30-0500 Systolic blood pressure 120 mm[Hg] Darwin Easterwood Other [facility] Other 06-08-2023 14:00-0400 Body temperature 97.2 [degF] Francy Gan PA-C Work Phone: [facility] 05-26-2023 10:30-0400 Body height 170.18 cm Darwin Easterwood Other [facility] Other 05-26-2023 10:30-0400 Body mass index (BMI) [Ratio] 41.5 kg/m2 Darwin Easterwood Other [facility] Other 05-26-2023 10:30-0400 Body temperature 98.4 [degF] Darwin Easterwood Other [facility] Other 05-26-2023 10:30-0400 Body weight 120.2 kg Darwin EasterIM5 Other [facility] Other 05-26-2023 10:30-0400 Diastolic blood pressure 70 mm[Hg] Darwin EasterIM5 Other [facility] Other 05-26-2023 10:30-0400 Respiratory rate 20 /min Darwin ThinkU[employer]wood Other [facility] Other 05-26-2023 10:30-0400 SaO2% (BldA) [Mass fraction] 97 % Darwin Easterwood Other [facility] Other 05-26-2023 10:30-0400 Systolic blood pressure 112 mm[Hg] Darwin Easterwood Other [facility] Other 04-28-2023 09:15-0400 Body height 170.18 cm Darwin Easterwood Other [facility] Other 04-28-2023 09:15-0400 Body mass index (BMI) [Ratio] 41.34 kg/m2 Darwin Easterwood Other [facility] Other 04-28-2023 09:15-0400 Body temperature 97.2 [degF] Darwin Easterwood Other [facility] Other 04-28-2023 09:15-0400 Body weight 119.75 kg Darwin Easterwood Other [facility] Other 04-28-2023 09:15-0400 Diastolic blood pressure 82 mm[Hg] Darwin Easterwood Other [facility] Other 04-28-2023 09:15-0400 Respiratory rate 20 /min Darwin Easterwood Other [facility] Other 04-28-2023 09:15-0400 SaO2% (BldA) [Mass fraction] 97 % Darwin Easterwood Other [facility] Other 04-28-2023 09:15-0400 Systolic blood pressure 120 mm[Hg] Darwin Easterwood Other [facility] Other 04-16-2023 11:00-0400 Body height 170.18 cm Darwin Easterwood Other [facility] Other 04-16-2023 11:00-0400 Body mass index (BMI) [Ratio] 41.03 kg/m2 Darwin Easterwood Other [employer] Other 04-16-2023 11:00-0400 Body temperature 97.8 [degF] Darwin Easterwood Other [employer] Other 04-16-2023 11:00-0400 Body weight 118.84 kg Darwin Easterwood Other [facility] Other 04-16-2023 11:00-0400 Diastolic blood pressure 80 mm[Hg] Darwin Easterwood Other [facility] Other 04-16-2023 11:00-0400 Respiratory rate 20 /min Darwin EasterIM5 Other [employer] [facility] Other 04-16-2023 11:00-0400 SaO2% (BldA) [Mass fraction] 98 % Darwin [employer] Other [facility] Other 04-16-2023 11:00-0400 Systolic blood pressure 120 mm[Hg] Darwin Easterwood Other [facility] Other 03-22-2023 22:51-0400 Diastolic blood pressure 74 mm[Hg] [facility]inn [facility] 03-22-2023 22:51-0400 Heart rate 80 /min [facility]inn [facility] 03-22-2023 22:51-0400 Mean blood pressure 92 mm[Hg] [facility]linn [facility] 03-22-2023 22:51-0400 Respiratory rate 16 /min [facility] 03-22-2023 22:51-0400 SaO2% (BldA) [Mass fraction] 98 % Kaylinn [facility] 03-22-2023 22:51-0400 Systolic blood pressure 128 mm[Hg] [facility] 03-22-2023 21:24-0400 Heart rate 76 /min Kaylinn [facility] 03-22-2023 21:24-0400 Respiratory rate 16 /min [facility] 03-22-2023 21:24-0400 SaO2% (BldA) [Mass fraction] 97 % Kaylinn [facility] 03-22-2023 19:54-0400 Body temperature 98.06 [degF] [facility] 03-22-2023 19:54-0400 Diastolic blood pressure 89 mm[Hg] [facility] 03-22-2023 19:54-0400 Heart rate 81 /min [facility] 03-22-2023 19:54-0400 Respiratory rate 18 /min [facility] 03-22-2023 19:54-0400 SaO2% (BldA) [Mass fraction] 99 % [facility]linn [facility] 03-22-2023 19:54-0400 Systolic blood pressure 138 mm[Hg] Kaylinn [facility] 03-22-2023 15:18-0400 Body height 170.18 cm COLLISION MECHANIC Darwin Easterwood Work Phone: [facility] 03-22-2023 15:18-0400 Body temperature 98.2 [degF] COLLISION MECHANIC Darwin Easterwood Work Phone: [facility] 03-22-2023 15:18-0400 Body weight 120.5 kg COLLISION MECHANIC Darwin Easterwood Work Phone: [facility] 03-22-2023 15:18-0400 Diastolic blood pressure 74 mm[Hg] SHIRLEY Jones Work Phone: [facility] 03-22-2023 15:18-0400 Heart rate 92 /min COLLISION MECHANICAkilah Jones Work Phone: [facility] 03-22-2023 15:18-0400 Respiratory rate 20 /min SHIRLEY Jones Work Phone: [facility] 03-22-2023 15:18-0400 SaO2% (BldA) [Mass fraction] 97 % SHIRLEY LaraIM5 Work Phone: [facility] 03-22-2023 15:18-0400 Systolic blood pressure 175 mm[Hg] SHIRLEY LaraIM5 Work Phone: [facility] 10-05-2022 09:00-0500 Body height 170.18 cm Ofelia Missler Other [employer] Other 10-05-2022 09:00-0500 Body mass index (BMI) [Ratio] 37.21 kg/m2 Ofelia Missler Other [employer] Other 10-05-2022 09:00-0500 Body weight 107.78 kg Ofelia Missler Other [employer] Other 10-05-2022 09:00-0500 Diastolic blood pressure 45 mm[Hg] Ofelia Missler Other [employer] Other 10-05-2022 09:00-0500 Respiratory rate 18 /min Ofelia Missler Other [employer] Other 10-05-2022 09:00-0500 SaO2% (BldA) [Mass fraction] 97 % Ofelai Missler Other [employer] Other 10-05-2022 09:00-0500 Systolic blood pressure 100 mm[Hg] Ofelia Missler Other [employer] Other 09-02-2022 11:30-0500 Body height 170.18 cm Ofelia Missler Other [employer] Other 09-02-2022 11:30-0500 Body mass index (BMI) [Ratio] 38.04 kg/m2 Ofelia Missler Other [facility] Other 09-02-2022 11:30-0500 Body weight 110.18 kg Ofelia Missler Other [employer] Other 09-02-2022 11:30-0500 Diastolic blood pressure 79 mm[Hg] Ofelia Missler Other [employer] Other 09-02-2022 11:30-0500 Respiratory rate 18 /min Ofelia Missler Other [facility] Other 09-02-2022 11:30-0500 SaO2% (BldA) [Mass fraction] 96 % Ofelia Missler Other [facility] Other 09-02-2022 11:30-0500 Systolic blood pressure 119 mm[Hg] Ofelia Missler Other [employer] Other 08-25-2022 14:00-0500 Body height 170.18 cm [employer] Other [employer] Other 08-25-2022 14:00-0500 Body mass index (BMI) [Ratio] 38.01 kg/m2 Lilly Fitt Other [facility] Other 08-25-2022 14:00-0500 Body weight 110.09 kg Lilly Fitt Other [facility] Other 07-31-2022 09:45-0500 Body height 170.18 cm Ofelia Missler Other [facility] Other 07-31-2022 09:45-0500 Body mass index (BMI) [Ratio] 38.2 kg/m2 Ofelia Missler Other [facility] Other 07-31-2022 09:45-0500 Body weight 110.63 kg Ofelia Missler Other [employer] Other 07-31-2022 09:45-0500 Diastolic blood pressure 78 mm[Hg] Ofelia Missler Other [facility] Other 07-31-2022 09:45-0500 Respiratory rate 18 /min Ofelia Missler Other [facility] Other 07-31-2022 09:45-0500 SaO2% (BldA) [Mass fraction] 96 % Ofelia Missler Other [facility] Other 07-31-2022 09:45-0500 Systolic blood pressure 135 mm[Hg] Ofelia Missler Other [employer] Other 07-14-2022 08:49-0500 Body height 170.5 cm Ruby Whittington MD Work Phone: [facility] 07-14-2022 08:49-0500 Body weight 111.58 kg Ruby Whittington MD Work Phone: [facility] 07-14-2022 08:49-0500 Diastolic blood pressure 73 mm[Hg] Ruby Whittington MD Work Phone: [facility] 07-14-2022 08:49-0500 Heart rate 92 /min Ruby Whittington MD Work Phone: [facility] 07-14-2022 08:49-0500 Systolic blood pressure 140 mm[Hg] Ruby Whittington MD Work Phone: [facility] 06-17-2022 15:45-0400 Body height 170.18 cm Ofelia Missler Other [facility] Other 06-17-2022 15:45-0400 Body mass index (BMI) [Ratio] 38.99 kg/m2 Ofelia Missler Other [employer] Other 06-17-2022 15:45-0400 Body weight 112.95 kg Ofelia Missler Other [facility] Other 06-17-2022 15:45-0400 Diastolic blood pressure 90 mm[Hg] Ofelia Missler Other [employer] Other 06-17-2022 15:45-0400 Respiratory rate 18 /min Ofelia Missler Other [facility] Other 06-17-2022 15:45-0400 SaO2% (BldA) [Mass fraction] 96 % Ofelia Missler Other [facility] Other 06-17-2022 15:45-0400 Systolic blood pressure 140 mm[Hg] Ofelia Missler Other [facility] Other 06-04-2022 13:00-0400 Body height 170.18 cm Sima Ross Other [employer] Other 06-04-2022 13:00-0400 Body mass index (BMI) [Ratio] 38.37 kg/m2 Micahlouisa Vandana Other [facility] Other 06-04-2022 13:00-0400 Body temperature 98.6 [degF] Sima Ross Other [facility] Other 06-04-2022 13:00-0400 Body weight 111.13 kg Sima Ross Other [facility] Other 06-04-2022 13:00-0400 Diastolic blood pressure 83 mm[Hg] Sima Ross Other [facility] Other 06-04-2022 13:00-0400 Respiratory rate 18 /min Sima Ross Other [facility] Other 06-04-2022 13:00-0400 SaO2% (BldA) [Mass fraction] 99 % Sima Ross Other [facility] Other 06-04-2022 13:00-0400 Systolic blood pressure 124 mm[Hg] Siam Ross Other [facility] Other 05-27-2022 12:15-0400 Body height 170.18 cm Lilly Luke Other [facility] Other 05-18-2022 09:30-0400 Body height 170.18 cm Ofelia Hester Other [facility] Other 05-18-2022 09:30-0400 Body mass index (BMI) [Ratio] 39.37 kg/m2 Ofelia Missler Other [facility] Other 05-18-2022 09:30-0400 Body temperature 98.1 [degF] Ofelia Missler Other [facility] Other 05-18-2022 09:30-0400 Body weight 114.04 kg Ofelia Missler Other [facility] Other 05-18-2022 09:30-0400 Diastolic blood pressure 80 mm[Hg] Ofelia Missler Other [facility] Other 05-18-2022 09:30-0400 Respiratory rate 18 /min Ofelia Missler Other [facility] Other 05-18-2022 09:30-0400 SaO2% (BldA) [Mass fraction] 99 % Ofelia Missler Other [facility] Other 05-18-2022 09:30-0400 Systolic blood pressure 115 mm[Hg] Ofelia Missler Other [facility] Other 04-17-2022 09:30-0400 Body height 170.18 cm [employer] Other [facility] Other 04-17-2022 09:30-0400 Body mass index (BMI) [Ratio] 39.15 kg/m2 [employer] Other [facility] Other 04-17-2022 09:30-0400 Body temperature 96.9 [degF] [employer] Other [facility] Other 04-17-2022 09:30-0400 Body weight 113.4 kg Darwincary Jones Other [facility] Other 04-17-2022 09:30-0400 Diastolic blood pressure 82 mm[Hg] Darwin Easterwood Other [employer] Other 04-17-2022 09:30-0400 Respiratory rate 20 /min Darwin Roberterwood Other [facility] Other 04-17-2022 09:30-0400 SaO2% (BldA) [Mass fraction] 99 % Darwin Robertermacy Other [employer] Other 04-17-2022 09:30-0400 Systolic blood pressure 124 mm[Hg] Darwin Easterwood Other [facility] Other 02-18-2022 21:41-0400 Diastolic blood pressure 88 mm[Hg] Fazal [facility] 02-18-2022 21:41-0400 Heart rate 84 /min Fazal [facility] 02-18-2022 21:41-0400 Mean blood pressure 101 mm[Hg] Fazal [facility] 02-18-2022 21:41-0400 Respiratory rate 17 /min Fazal [facility] 02-18-2022 21:41-0400 SaO2% (BldA) [Mass fraction] 98 % Darwin Roberterwood Other [facility] Other 02-18-2022 21:41-0400 Systolic blood pressure 126 mm[Hg] Fazal [facility] 02-18-2022 20:42-0400 gluc 106 mg/dL Fazal [facility] 02-18-2022 20:42-0400 gluc Fazal [facility] 02-18-2022 20:33-0400 Body temperature 98.06 [degF] Fazal [facility] 02-18-2022 20:33-0400 Diastolic blood pressure 99 mm[Hg] Fazal Anton[facility] 02-18-2022 20:33-0400 Heart rate 99 /min Fazal Anton[facility] 02-18-2022 20:33-0400 Respiratory rate 18 /min Fazal Anton[facility] 02-18-2022 20:33-0400 Systolic blood pressure 153 mm[Hg] Fazal Anton[facility] 02-18-2022 10:00-0400 Body height 170.18 cm [employer] Other [facility] Other 02-18-2022 10:00-0400 Body mass index (BMI) [Ratio] 38.52 kg/m2 [employer] Other [facility] Other 02-18-2022 10:00-0400 Body temperature 97 [degF] [employer] Other [facility] Other 02-18-2022 10:00-0400 Body weight 111.59 kg [employer] Other [facility] Other 02-18-2022 10:00-0400 Diastolic blood pressure 82 mm[Hg] Darwin Easterwood Other [employer] Other 02-18-2022 10:00-0400 Respiratory rate 20 /min Darwin Easterwood Other [facility] Other 02-18-2022 10:00-0400 Systolic blood pressure 118 mm[Hg] Darwin Easterwood Other [employer] Other 02-11-2022 12:00-0400 Body height 170.18 cm Darwin Easterwood Other [employer] Other 02-11-2022 12:00-0400 Body mass index (BMI) [Ratio] 37.9 kg/m2 Darwin Easterwood Other [facility] Other 02-11-2022 12:00-0400 Body temperature 97.2 [degF] Darwin Easterwood Other [facility] Other 02-11-2022 12:00-0400 Body weight 109.77 kg Darwin Easterwood Other [facility] Other 02-11-2022 12:00-0400 Diastolic blood pressure 88 mm[Hg] Darwin Easterwood Other [facility] Other 02-11-2022 12:00-0400 Respiratory rate 20 /min Darwin Easterwood Other [facility] Other 02-11-2022 12:00-0400 SaO2% (BldA) [Mass fraction] 98 % Darwin Easterwood Other [facility] Other 02-11-2022 12:00-0400 Systolic blood pressure 126 mm[Hg] Darwin Jones Other [facility] Other 09-03-2021 10:02-0500 Diastolic blood pressure 86 mm[Hg] Unknown Unknown [facility] DO Work Phone: 09-03-2021 10:02-0500 Systolic blood pressure 110 mm[Hg] Unknown Unknown [facility] DO Work Phone: 09-03-2021 09:55-0500 Body height 170.[address] [facility] DO Work Phone: 09-03-2021 09:55-0500 Body mass index (BMI) [Ratio] 32.36 kg/m2 Unknown Unknown [facility] DO Work Phone: 09-03-2021 09:55-0500 Body surface area Derived from formula 2.[address] [facility] DO Work Phone: 09-03-2021 09:55-0500 Body weight 93.[address] [facility] DO Work Phone: 09-03-2021 09:55-0500 Diastolic blood pressure 84 mm[Hg] Unknown Unknown [facility] DO Work Phone: 09-03-2021 09:55-0500 Heart rate 72 /min Unknown Unknown [facility] DO Work Phone: 09-03-2021 09:55-0500 Systolic blood pressure 122 mm[Hg] Unknown Unknown [facility] DO Work Phone: Encounters Encounter Date Encounter Type Care Provider Facility Start: 10-18-2024 End: 10-18-2024 Joseboo flowsheet Mya MCMILLAN Work Phone: [facility] Start: 10-18-2024 End: 10-18-2024 Bamboo flowsheet Mya MCMILLAN Work Phone: [facility] Start: 10-18-2024 End: 10-18-2024 flow sheet Mya MCMILLAN Work Phone: [facility] Comment on above: 37 weeks gestation o f ; Third trimester ; Anxiety, generalized (CMS/HCC) Start: 10-14-2024 End: 10-14-2024 Lab Drop off Lesley Doris [facility] Start: 10-14-2024 End: 10-14-2024 ambulatory Lesley C Jeffdner Facility:[facility] Start: 10-14-2024 End: 10-14-2024 Patient encounter procedure Lesley Doris Williser [facility] Start: 10-13-2024 End: 10-13-2024 Clinisync [...] Start: 10-05-2024 End: 10-05-2024 flow sheet Mya MCMILLAN Work Phone: [facility] [...] End: 09-21-2024 Patient encounter procedure Darwin Jones APRN Work Phone: [facility] [place] Work Phone: Start: 09-21-2024 End: 09-21-2024 ambulatory Darwin Jones COLLISION MECHANIC Work Phone: [facility] Work Phone: Start: 09-19-2024 End: 09-19-2024 Bamboo [...] End: 09-14-2024 Patient encounter procedure Darwin Jones APRN Work Phone: [facility] Work Phone: Start: 09-14-2024 End: 09-14-2024 ambulatory Darwin Jones COLLISION MECHANIC Work Phone: [facility] Work Phone: Start: 09-11-2024 End: 09-11-2024 [...] Start: 09-07-2024 Non-patient / Non-visit Darwin corral COLLISION MECHANIC Work Phone: [facility] Work Phone: Start: 09-06-2024 End: 09-06-2024 Emergency department patient visit Flash [facility] Start: 09-05-2024 ambulatory Rogelio Nath Facility :[facility] Start: 09-05-2024 End: 09-05-2024 ambulatory Rogelio Robins Pham Facility:[facility] Start: 09-05-2024 Emergency department patient visit Kennethdes Curtis Facility:[facility] Start: 09-05-2024 End: 09-05-2024 Observation Rogelio N[facility] Start: 08-25-2024 End: 08-25-2024 Clinisync Result Encounter Brain Seamus DO Work Phone: [facility] Unsolicited Start: 08-25-2024 End: 08-25-2024 Clinisync Result Encounter Brain Seamus DO Work Phone: [facility] Unsolicited Start: 08-25-2024 End: 08-25-2024 ambulatory Darwin Jones COLLISION MECHANIC Work Phone: [facility] Work Phone: Start: 08-25-2024 End: 08-25-2024 Patient encounter procedure Darwin Jones COLLISION MECHANIC Work Phone: [facility] Work Phone: Start: 08-23-2024 End: [...] Not Available Start: 08-02-2024 End: 08-02-[facility] Start: 07-31-2024 End: 07-31-2024 Patient encounter procedure Darwin Jones COLLISION MECHANIC Work Phone: [facility] [place] Work Phone: Start: 07-31-2024 End: 07-31-2024 Orders Only Hayden Reilly MD Work Phone: [facility] Comment on above: History of pericardi tis (Primary Dx); Mild concentric left ventricular hypertrophy (LVH); 25 weeks gestation of Start: 07-27-2024 End: 07-27-2024 ambulatory NO PCP NO PCP [facility] Start: 07-11-2024 End: 07-11-2024 flow sheet Brain Seamus DO Work Phone: [facility] Comment on above: 22 weeks gestation o f ; Second trimester ; Nausea and vomiting during ; Diabetes mellitus screening Start: 06-28-2024 End: 06-28-2024 Patient encounter procedure Darwin Jones COLLISION MECHANIC Work Phone: [facility] [place] Work Phone: Start: 06-28-2024 End: 06-28-2024 ambulatory Darwin Jones COLLISION MECHANIC Work Phone: [facility] Work Phone: Start: 2024 End: 2024 Office consultation new/estab patient 60 min Hayden Reilly MD Work Phone: [facility] [place] Comment on above: 20 weeks gestation o f (Primary Dx); Tiffani's disease; 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; Hx of preeclampsia, prior , currently ; Elevated BP without diagnosis of hypertension; History of pericarditis; with history of section, antepartum; History of macrosomia in infant in prior , currently ; Obesity affecting , antepartum, unspecified obesity type; Depression affecting Start: 2024 End: 2024 ambulatory [facility] Start: 06-22-2024 End: 06-22-2024 Patient encounter procedure Darwin Jones COLLISION MECHANIC Work Phone: [facility] [place] Work Phone: Start: 06-22-2024 End: 06-22-2024 ambulatory Darwin Jones COLLISION MECHANIC Work Phone: [facility] Work Phone: Start: 06-21-2024 End: 06-21-2024 Chart abstracting Hayden Reilly MD Work Phone: [facility] Start: 06-12-2024 End: 06-12-2024 Bamboo [...] 05-24-2024 End: 05-24-2024 Patient encounter procedure SHIRLEY [place] Work Phone: [facility] [place] Work Phone: Start: 05-24-2024 End: 05-24-2024 ambulatory [facility] Work Phone: Start: 05-11-2024 End: 05-11-2024 ambulatory COLLISION MECHANIC Darwin Jaclyn [facility] Work Phone: [facility] Work Phone: Start: 05-11-2024 End: 05-11-2024 Encounter for general adult medical examination without abnormal [facility] Start: 05-11-2024 End: 05-11-2024 Patient encounter procedure SHIRLEY [place] Work Phone: [facility] [place] Work Phone: Start: 05-10-2024 End: 05-10-2024 Bamboo [...] Available Start: 04-06-2024 End: 04-06-2024 Departed Referred COLLISION MECHANIC Darwin Larawood Work Phone: [facility] Start: 04-06-2024 End: 04-06-2024 ambulatory SHIRLEY Jonesermacy Work Phone: [facility] Work Phone: Start: 03-21-2024 End: 03-21-[address] Not Available Start: 03-18-2024 End: 03-18-2024 Emergency department patient visit [facility] Start: 02-24-2024 End: 02-24-2024 Patient encounter procedure SHIRLEY Jones Work Phone: [facility] [place] Work Phone: Start: 02-24-2024 End: 02-24-2024 ambulatory SHIRLEY Jonesermacy Work Phone: [facility] Work Phone: Start: 01-25-2024 End: 01-25-2024 ambulatory SHIRLEY Jonesermacy Work Phone: [facility] Work Phone: Start: 01-25-2024 End: 01-25-2024 Patient encounter procedure SHIRLEY Jones Work Phone: [facility] Family [facility] Work Phone: Start: 01-24-2024 End: 01-24-2024 Patient encounter procedure COLLISION MECHANICAkilah Jones Work Phone: [facility] [place] Work Phone: Start: 01-24-2024 End: 01-24-2024 ambulatory COLLISION MECHANICAkilah Joneserwood Work Phone: [facility] Work Phone: Start: 12-27-2023 End: 12-27-2023 Patient encounter procedure COLLISION MECHANIC Darwin Roberterwood Work Phone: [facility] [place] Work Phone: Start: 12-27-2023 End: 12-27-2023 ambulatory COLLISION MECHANIC Darwin Anaya Easterwood Work Phone: [facility] Work Phone: Start: 12-24-2023 End: 12-24-2023 ambulatory COLLISION MECHANIC Darwin Jaclyn Easterwood Work Phone: [facility] Work Phone: Start: 12-24-2023 End: 12-24-2023 Patient encounter procedure COLLISION MECHANIC Darwin Easterwood Work Phone: [facility] Work Phone: Start: 11-30-2023 End: 11-30-2023 Patient encounter procedure COLLISION MECHANIC Darwin Joneserwood Work Phone: [facility] [place] Work Phone: Start: 11-30-2023 End: 11-30-2023 ambulatory COLLISION MECHANIC Darwin Anaya Easterwood Work Phone: [facility] Work Phone: Start: 11-25-2023 End: 11-25-2023 ambulatory COLLISION MECHANIC Darwin Jaclyn Easterwood Work Phone: [facility] Work Phone: Start: 11-25-2023 End: 11-25-2023 Patient encounter procedure COLLISION MECHANIC Darwin Easterwood Work Phone: [facility] Work Phone: Start: 11-18-2023 End: 11-19-2023 ambulatory RUBY WHITTINGTON Facility:[facility] Start: 11-18-2023 End: 11-18-2023 Patient encounter procedure Ruby Whittington MD Work Phone: Endocrinology Comment on above: 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); Class 2 obesity; Irregular menstruation, unspecified; Female infertility; Calculus of kidney Start: 11-01-2023 End: 11-01-2023 Patient encounter procedure COLLISION MECHANIC Darwin Joneserwood Work Phone: [facility] [place] Work Phone: Start: 11-01-2023 End: 11-01-2023 ambulatory COLLISION MECHANIC Darwin Jaclyn Joneserwood Work Phone: [facility] Work Phone: Start: 10-20-2023 End: 10-20-2023 Patient encounter procedure COLLISION MECHANICAkilah Orosco Roberterwood Work Phone: [facility]ician [facility] Work Phone: Start: 10-01-2023 End: 10-01-2023 ambulatory COLLISION MECHANIC Darwin Jonesermacy Work Phone: [facility] Work Phone: Start: 10-01-2023 End: 10-01-2023 Patient encounter procedure COLLISION MECHANIC Darwin Jonesermacy Work Phone: [facility] [place] Work Phone: Start: 09-29-2023 End: 09-29-2023 ambulatory Tyrone Rock Facility:[facility] Start: 09-29-2023 End: 09-29-2023 Patient encounter procedure Tyrone Rock [facility] Start: 09-21-2023 End: 09-21-2023 ambulatory Darwin Jones Other [facility] Other Start: 09-21-2023 Office outpatient vi sit 15 minutes Darwincary Jones [facility] Start: 08-30-2023 Patient encounter procedure COLLISION MECHANIC Darwin Jones Work Phone: [facility] Physician [facility]- Start: 08-25-2023 End: 08-25-2023 ambulatory Darwin Roberterwood Other [facility] Other Start: 08-25-2023 Follow-up encounter Darwincary Joneserwood [facility] Start: 08-25-2023 End: 08-25-2023 Patient encounter procedure COLLISION MECHANIC aDrwin Jones Work Phone: [facility] Work Phone: Start: 07-23-2023 End: 07-23-2023 Patient encounter procedure COLLISION MECHANIC Darwin Jones Work Phone: [facility] Work Phone: Start: 07-16-2023 Telephone encounter Ruby sneed MD Work Phone: Endocrinology Comment on above: Appointment Start: 06-23-2023 End: 06-23-2023 ambulatory Darwin Janewood Other [facility] Other Start: 06-23-2023 Office outpatient vi sit 15 minutes Darwin Roberterwood [facility] Start: 06-08-2023 End: 06-08-2023 ambulatory FRANCY GAN Facility:[facility] Start: 06-08-2023 End: 06-08-2023 Patient encounter procedure Francy Gan PA-C Work Phone: Otolaryngology Comment on above: Dysphagia, unspecifi ed type (Primary Dx); LPRD (laryngopharyngeal reflux disease) Start: 05-26-2023 End: 05-26-2023 ambulatory Darwin Easterwood Other [facility] Other Start: 05-26-2023 Office outpatient vi sit [facility] Start: 05-06-2023 End: 05-06-2023 ambulatory COLLISION MECHANIC Darwin Jones Work Phone: [facility] Work Phone: Start: 05-06-2023 End: 05-06-2023 Patient encounter procedure COLLISION MECHANIC Darwin Jones Work Phone: [facility]-Ultrasound [place] Work Phone: Start: 04-28-2023 End: 04-28-2023 [facility] Other Start: 04-28-2023 Office outpatient vi sit 40 minutes [facility] Start: 04-16-2023 End: 04-16-2023 [facility] Other Start: 04-16-2023 Encounter for genera l adult medical examination without abnormal [facility] Start: 04-16-2023 Periodic preventive med est patient 18-39 yrs [facility] Start: 04-08-2023 End: 04-08-2023 ambulatory COLLISION MECHANIC Darwin Jones Work Phone: [facility] Work Phone: Start: 04-08-2023 End: 04-08-2023 Departed Referred COLLISION MECHANIC Darwin Jones Work Phone: [facility]-Employee Benefit Screening Start: 03-22-2023 End: 03-22-2023 Emergency department patient visit Gabriel [facility] Start: 03-22-2023 End: 03-22-2023 Emergency department patient visit COLLISION MECHANIC Darwin Jones Work Phone: [facility]Emer[facility] Work Phone: Start: 02-28-2023 End: 02-28-2023 Departed Referred SHIRLEY Jones Work Phone: [facility]-Employee Benefit Screening Start: 02-28-2023 End: 02-28-2023 ambulatory COLLISION MECHANIC Darwin Jones Work Phone: [facility] Work Phone: Start: 02-28-2023 End: 02-28-2023 Patient encounter procedure SHIRLEY Jones Work Phone: [facility] [address] Work Phone: Start: 12-10-2022 End: 12-10-2022 ambulatory SHIRLEY Jonesermacy Work Phone: [facility] Work Phone: Start: 12-10-2022 End: 12-10-2022 Patient encounter procedure SHIRLEY Jones Work Phone: [facility] [place] Work Phone: Start: 12-09-2022 End: 12-09-[address] NONE LISTED REQUEST Facility: Start: 12-08-2022 End: 12-08-2022 ambulatory Ofelia Hester Other [facility] Other Start: 12-08-2022 Encounter by ruben Gilbert cassidy [facility] Start: 10-22-2022 End: 10-22-2022 ambulatory Lilly Luke Other [facility] Other Start: 10-22-2022 Telephone encounter Lilly Luke [facility] Start: 10-16-2022 End: 10-16-2022 ambulatory COLLISION MECHANICAkilah Orosco Jaclyn Jonesermacy Work Phone: [facility] Work Phone: Start: 10-16-2022 End: 10-16-2022 Patient encounter procedure SHIRLEY Jones Work Phone: [facility] [place] Work Phone: Start: 10-15-2022 End: 10-15-2022 ambulatory Ofelia ler Other [facility] Other Start: 10-15-2022 Telephone encounter Ofelia [facility] Start: 10-05-2022 Registered Recurring SHIRLEY Jones Work Phone: [facility]Weight Management Work Phone: Start: 10-05-2022 [facility] Weight Management f/u [facility] Start: 10-05-2022 End: 10-05-2022 ambulatory Ofelia Missler Other [facility] Other Start: 09-28-2022 ambulatory Ruby Whittington MD Work Phone: Endocrinology Comment on above: Synthroid Start: 09-02-2022 ([facility] Weight Management f/u [facility] Start: 09-02-2022 End: 09-02-2022 ambulatory Ofelia Missler Other [facility] Other Start: 08-25-2022 ([facility] WMNI) WMN Init ial Provider Lilly Luke [facility] Start: 08-25-2022 End: 08-25-2022 ambulatory Lilly Luke Other [facility] Other Start: 07-31-2022 ([facility] Weight Management f/u Ofelia [facility] Start: 07-31-2022 End: 07-31-2022 ambulatory Ofelia Missler Other [facility] Other Start: 07-20-2022 End: 07-20-2022 ambulatory Lillyakilah Blackmont Other [facility] Other Start: 07-20-20[address] Tele[address] Lilly Ti 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); Class 2 obesity Start: 07-08-2022 End: 07-08-2022 ambulatory Ofelia Hester Other [facility] Other Start: 07-08-2022 Telephone encounter [facility] Start: 06-17-2022 ([facility]/U) Weight Management f/u [facility] Start: 06-17-2022 End: 06-17-2022 ambulatory Ofelia Hester Other [facility] Other Start: 06-04-2022 End: 06-04-2022 ambulatory Sima Ross Other [facility] Other Start: 06-04-2022 Office outpatient vi sit 15 minutes Sima Ross [facility] Start: 05-27-2022 End: 05-27-2022 ambulatory Lilly Luke Other [facility] Other Start: 05-27-2022 IBT FOR OBESITY GROU P 2-10 30M Lilly Luke [facility] Start: 05-25-2022 End: 05-25-2022 ambulatory Darwin Jones Other [facility] Other Start: 05-25-2022 Telephone encounter Geoffrey murphy MD Work Phone: Endocrinology Comment on above: Appointment (LVM for patient that appt on 05/[address] George has been rescheduled to 07/08 at [facility] with Dr. Robertson. sending mail reminder as well. ) Start: 05-19-2022 End: 05-19-2022 ambulatory Ofelia Hester Other [facility] Other Start: 05-19-2022 Telephone encounter Ofelia Hester [facility] Start: 05-18-2022 End: 05-18-2022 ambulatory Ofelia Hester Other [facility] Other Start: 05-18-2022 Nutrition therapy Ofelia Hester [facility] Start: 04-21-2022 End: 04-21-2022 ambulatory Darwin Easterwood Other [facility] Other Start: 04-21-2022 Telephone encounter Darwin Easterwood [facility] Start: 04-17-2022 End: 04-17-2022 ambulatory Darwin Easterwood Other [facility] Other Start: 04-17-2022 Office outpatient vi sit 25 minutes Darwin Easterwood [facility] Start: 04-15-2022 End: 04-15-2022 ambulatory Darwin Easterwood Other [facility] Other Start: 04-15-2022 Telephone encounter Darwin Easterwood [facility] Start: 04-14-2022 End: 04-14-2022 Patient encounter procedure PHYSICIAN [facility] [place] Start: 04-10-2022 End: 04-10-2022 ambulatory Lillyakilah Blackmont Other [facility] Other Start: 04-10-2022 Telephone encounter Lilly Luke [facility] Start: 04-06-2022 End: 04-06-2022 Patient encounter procedure PHYSICIAN NO [facility] [place] Start: 02-24-2022 End: 02-24-2022 ambulatory Darwin Jones Other [facility] Other Start: 02-24-2022 [facility] Start: 02-18-2022 End: 02-18-2022 Emergency department patient visit Fazal [facility] Start: 02-18-2022 End: 02-18-2022 ambulatory Darwin Jones Other [facility] Other Start: 02-18-2022 Office [facility] vi [facility] Start: 02-18-2022 [facility] Start: 02-13-2022 End: 02-13-2022 Patient encounter procedure PHYSICIAN NO [facility]Ul[facility] Start: 02-11-2022 End: 02-11-2022 ambulatory Darwin Jones Other [facility] Other Start: 02-11-2022 Office outpatient ne w 45 minutes Darwin [facility] Start: 02-10-2022 End: 02-10-2022 Departed Referred PHYSICIAN [facility]-Employee Benefit Screening Start: 09-04-2021 Chart Update Unknown Unknown [facility] 250 DO Work Phone: Start: 09-03-2021 Office outpatient ne w 45 minutes Unknown Unknown [facility] 600 DO Work Phone: Procedures Date Procedure Procedure Detail Performing Clinician Start: 10-18-2024 Urnls dip stick/tabl et rgnt non-auto w/o micrscp Mya MCMILLAN Work Phone: Start: 10-13-2024 US OB GROWTH Brain Fazi [...] Seamus DO Work Phone: Start: 04-20-2024 Microscopic observat ion [Identifier] in Cervix by Cyto stain Hayden Reilly MD Work Phone: Start: 04-13-2024 Blood count complete automated Not In System Ref Prov Start: 04-13-2024 Syphilis test non-treponemal antibody qual Not In System Ref Prov Start: 04-13-2024 [facility] Work Phone: Start: 04-08-2024 Drug scrn 1+ class nonchromo Not In System Ref Prov Start: 04-07-2024 Urnls dip stick/tabl et rgnt non-auto w/o micrscp Brain Seamus DO Work Phone: Start: 07-01-2022 US scan of thyroid PHYS ICIAN NO FAMILY section Unknown Unk nown section Fazal Bush er NEGATED: Highlighted row has not occurred! Total colonoscopy Unknown Unknown Plan of Treatment Date Care Activity Detail Author Start: 04-20-2027 Screening for malignant neoplasm of cervix Pap Smear [facility] Start: 03-23-2026 DTaP,Tdap and Td Vaccines (7 - Td or Tdap) DTaP,Tdap and Td Vaccines (7 - Td or Tdap) [facility] Start: 03-23-[address] [facility] Start: 2025 Tobacco Screening Tobacco Screening [facility] Start: 10-26-2024 End: 10-26-2024 Patient encounter procedure 10/26/2024 8:50 AM EDT Routine [facility] [address] [place] [id number] Mya Finch, PA [address] [facility] [address] [place], [place] [id number] [facility] [employer] [facility] Start: 10-18-2024 End: 10-18-2024 Patient encounter procedure 10/18/2024 9:50 AM EST Routine [facility] [address] [place] [id number] Mya Finch, PA [address] [facility] [address] [address] [facility] OB Start: 10-10-2024 End: 10-10-2025 CULTURE, GROUP B STREP WITH SUSCEPTIBLITY CULTURE, GROUP B STREP WITH SUSCEPTIBLITY Lab Routine Third trimester Expected: 10/10/2024, Expires: 10/10/2025 [facility] Work Phone: Comment on above: Expected: [...] PM EST Routine [facility] [address] [place] [address] Mya Finch PA [address] [facility] [address] [address] [facility] Start: 09-19-2024 End: 09-19-2024 [...] 08/31/2024 (Approximate), Expi res: 07/31/2025 Start: 08-25-2024 [facility] Start: 08-23-2024 End: 08-23-2024 Patient encounter procedure 08/23/2024 11:00 AM EST Routine [facility] [address] [place] [phone] Seamus, Brain, [address] [place] [address] Arrived [facility] Comment on above: Arrived Start: 08-02-2024 End: 08-02-2024 Telemedicine consultation with patient 08/02/2024 9:00 AM EST Telemedicine [facility] [address] [place] [address] Darcy Enriquez MD [address], [address] [place] [address] [facility] Start: 07-27-2024 End: 07-27-2024 Patient encounter procedure 07/27/2024 11:00 AM EST Appointment [facility] [address] [place] [address] [facility] Start: 07-21-2024 End: 07-21-2024 Patient encounter procedure 07/21/2024 10:00 AM EST Appointment [facility] Cardi[facility] [address] [place] [phone] [facility] Start: 07-11-2024 End: 07-11-2025 CBC panel - Blood by Automated count CBC Lab Routine 22 weeks gestation of Second trimester Expected: 07/11/2024 (Approximate), Expires: 07/11/2025 [facility] Work Phone: Comment on above: Expected: 07/11/2024 (Approximate), Expi res: 07/11/2025 Start: 07-11-2024 End: 07-11-2025 Measurement of glucose 1 hour after glucose challenge for glucose tolerance test Glucose tolerance, 1 hour Lab Routine 22 weeks gestation of Second trimester Diabetes mellitus screening Expected: 07/11/2024 (Approximate), Expires: 07/11/2025 [facility] Comment on above: Expected: 07/11/2024 (Approximate), Expi res: 07/11/2025 Start: 07-11-2024 End: 07-11-2024 Patient encounter procedure 07/11/2024 10:10 AM EST Routine [facility] [address] [place] [phone], DO [address] [place] [address] [facility] Start: 06-28-2024 [facility] Start: 2024 End: 2025 Echo complete W/O contrast Echo complete W/O contrast Echocardiography Routine 20 weeks gestation of History of pericarditis Expected: 2024, Expires: 2025 [facility] Work Phone: Comment on above: Expected: 2024, Expires: Start: 2024 End: 2024 Patient encounter procedure [facility] Start: 06-12-2024 End: 10-13-2024 Alpha fetoprotein, maternal Alpha fetoprotein, maternal Lab Routine Second trimester 18 weeks gestation of Expected: 06/12/2024 (Approximate), Expires: 10/13/2024 [facility] Healthcare Comment on above: Expected: 06/12/2024 (Approximate), [...] AM EDT Routine [facility] [address] [place] [phone] [address], DO [address] [place] [address] Arrived [facility] Comment on above: Arrived Start: 06-07-2024 End: 06-07-2024 Patient encounter procedure 06/07/2024 10:50 AM EDT Routine [facility] [address] [place] [phone] [address], [address] [place] [address] [facility] Start: 05-10-2024 End: 05-10-2024 Patient encounter procedure [facility] Comment on above: Arrived Start: 04-20-2024 End: 04-20-2024 Patient encounter procedure [facility] Comment on above: Arrived Start: 04-16-2024 COVID-19 Vaccine () COVID-19 Vaccine () [facility] Start: 04-16-2024 Influenza vaccination [facility] Start: 04-07-2024 End: 04-07-2025 ABO/Rh ABO/Rh Lab Routine Missed menses Expected: 04/07/2024 (Approximate), Expires: 04/07/2025 [facility] Comment on above: Expected: 04/07/2024 (Approximate), Expi res: 04/07/2025 Start: 04-07-2024 End: 04-07-2025 Blood type and Indirect antibody screen panel - Blood Type and screen Lab Routine Missed menses Expected: 04/07/2024 (Approximate), Expires: 04/07/2025 [facility] Work Phone: Comment on above: Expected: 04/07/2024 (Approximate), Expi res: 04/07/2025 Start: 08-16-2023 Behavioral Health Screening Behavioral Health Screening [facility] Start: 05-06-2023 US scan of thyroid US thyroid [facility] Start: 04-16-2023 Covid-19 Vaccine () Covid-19 Vaccine () [facility] Start: 04-16-2023 Influenza vaccination Influenza Vaccine (#1) [facility] Start: 04-08-2023 [facility] Start: 08-16-2022 DEPRESSION ASSESSMENT DEPRESSION ASSESSMENT [facility] Start: 04-16-2022 Influenza vaccination INFLUENZA (#1) [facility] Start: 08-16-2021 DEPRESSION ASSESSMENT DEPRESSION ASSESSMENT [facility] Start: 01-10-2021 COVID-19 VACCINE (3 - Booster) COVID-19 VACCINE (3 - Booster) [facility] Start: 2017 PAP TESTING PAP TESTING [facility] Start: 2017 Screening for malignant neoplasm of cervix [facility] Start: 2015 DTaP,Tdap and Td Vaccines (1 - Tdap) DTaP,Tdap and Td Vaccines (1 - Tdap) [facility] Start: 2015 Urine microalbumin profile DTAP,TDAP,TD (1 - Tdap) [facility] Start: 2014 Adult BMI Screening Adult BMI Screening [facility] Start: 2014 ANNUAL PCP TEAM CHRONIC DISEASE VISIT ANNUAL PCP TEAM CHRONIC DISEASE VISIT [facility] Start: 2014 HEPATITIS C SCREENING HEPATITIS C SCREENING [facility] Start: 2014 Hepatitis C screening Hepatitis C Screening [facility] Start: 2014 HIV SCREENING HIV SCREENING [facility] Start: 2014 HIV screening HIV Screening [facility] Start: 2010 PEDS TO ADULT TRANSITION ANNUAL ASSESSMENT PEDS TO ADULT TRANSITION ANNUAL ASSESSMENT [facility] Start: 2008 Depression Screening Depression Screening [facility] Start: 2008 PEDS TO ADULT TRANSITION INITIAL DISCUSSION PEDS TO ADULT TRANSITION INITIAL DISCUSSION [facility] Start: 2008 Tobacco Screening Tobacco Screening [facility] Start: 2007 HPV VACCINE (1 - 2-dose series) HPV VACCINE (1 - 2-dose series) [facility] Start: 2005 HPV Vaccine (1 - 2-dose series) HPV Vaccine (1 - 2-dose series) [facility] Start: 1996 COVID-19 VACCINE (#1) COVID-19 VACCINE (#1) [facility] Start: 1996 HEPATITIS B (1 of 3 - 3-dose series) HEPATITIS B (1 of 3 - 3-dose series) [facility] Bacteria identified in Urine by Culture Urine culture Microbiology Routine Missed menses Ordered: 04/07/2024 [facility] Comment on above: Ordered: 04/07/2024 CBC W Auto Differential panel - Blood CBC and differential Lab Routine Missed menses Ordered: 04/07/2024 [facility] Comment on above: Ordered: 04/07/2024 CHLAMYDIA TRACHOMATI S (GENITO/STI) CHLAMYDIA TRACHOMATIS (GENITO/STI) Lab Routine First trimester Screen for STD (sexually transmitted disease) Vaginal discharge Ordered: 04/20/2024 [facility] Comment on above: Ordered: 04/20/2024 Cytology Cervical or vaginal smear or scraping study Pap Smear Pathology and Cytology Routine Well woman exam with routine gynecological exam Ordered: 04/20/2024 [facility] Work Phone: Comment on above: Ordered: 04/20/2024 Hemoglobin A1c/Hemoglobin.total in Blood Hemoglobin A1c Lab Routine Missed menses Ordered: 04/07/2024 [facility] Comment on above: Ordered: 04/07/2024 Hepatitis B virus surface Ag [Presence] in Serum or Plasma by Immunoassay Hepatitis B surface antigen Lab Routine Missed menses Ordered: 04/07/2024 [facility] Comment on above: Ordered: 04/07/2024 Hepatitis C virus Ab [Presence] in Serum or Plasma by Immunoassay Hepatitis C antibody Lab Routine Missed menses Ordered: 04/07/2024 [facility] Comment on above: Ordered: 04/07/2024 HIV-1/HIV-2 antigen/antibody combination immunoassay HIV-1 and HIV-2 antibodies Lab Routine Missed menses Ordered: 04/07/2024 [facility] Comment on above: Ordered: 04/07/2024 Neisseria gonorrhoea e DNA [Presence] in Unspecified specimen by LAUREN with probe detection Neisseria gonorrhea DNA probe, direct Lab Routine First trimester Screen for STD (sexually transmitted disease) Vaginal discharge Ordered: 04/20/2024 [facility] Comment on above: Ordered: 04/20/2024 Patient referral [facility] Work Phone: Progesterone [Mass/volume] in Serum or Plasma [facility] Progesterone [Mass/volume] in Serum or Plasma [facility] Progesterone [Mass/volume] in Serum or Plasma [facility] Progesterone [Mass/volume] in Serum or Plasma [facility] Progesterone [Mass/volume] in Serum or Plasma [facility] Reagin Ab [Presence] in Serum by RPR RPR Lab Routine Missed menses Ordered: 04/07/2024 [facility] Comment on above: Ordered: 04/07/2024 Rubella antibody, IgG Rubella an tibody, IgG Lab Routine Missed menses Ordered: 04/07/2024 [facility] Comment on above: Ordered: 04/07/2024 SURESWAB(R) ADVANCED VAGINITIS PLUS, TMA SURESWAB(R) ADVANCED VAGINITIS PLUS, TMA Pathology and Cytology Routine First trimester Screen for STD (sexually transmitted disease) Vaginal discharge Ordered: 04/20/2024 [facility] Comment on above: Ordered: 04/20/2024 Thyrotropin [Units/volume] in Serum or Plasma TSH Lab Routine Missed menses Ordered: 04/07/2024 [facility] Comment on above: Ordered: 04/07/2024 [facility] Transthoracic [facility] End: 07-07-2024 XR MODIFIED BARIUM SWALLOW W SPEECH THERAPY XR MODIFIED BARIUM SWALLOW W SPEECH THERAPY Radiology Routine Dysphagia, unspecified type 1 Occurrences starting 06/08/2023 until 07/07/2024 [facility] Work Phone: Comment on above: 1 Occurrences starting 06/08/2023 until 07/07/2024 [facility] Work Phone: [facility] Immunizations Immunization Date Immunization Notes Care Provider Vaishali yo 05-21-2023 influenza virus vaccine, unspecified formulation Tyrone Rock [facility] 05-21-2023 influenza, injectabl e, 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, 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 free COLLISION MECHANIC Darwin Easterwood Work Phone: [facility] 05-21-2023 influenza, injectabl e, 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, contains 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 Darwin Easterwood Other [facility] Other 06-15-2022 influenza, injectabl e, 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, 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 free COLLISION MECHANIC Darwin Easterwood Work Phone: [facility] 06-15-2022 influenza, injectabl e, 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, contains 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 Darwin Easterwood Other [facility] Work Phone: 06-15-2022 influenza virus vaccine, unspecified formulation Francy Gan PA-C Work Phone: [facility] 06-15-2021 influenza nasal, unspecified formulation Ruby Whittington MD Work Phone: [facility] Work Phone: 06-15-2021 influenza virus vaccine, unspecified formulation Tyrone Rock [facility] 06-15-2021 influenza, injectabl e, 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, 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 free COLLISION MECHANIC Darwin Easterwood Work Phone: [facility] 06-15-2021 influenza, injectabl e, 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, contains 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 Darwin Easterwood Other [facility] Work Phone: 05-15-2021 influenza nasal, unspecified formulation Ruby Whittington MD Work Phone: [facility] Work Phone: 05-15-2021 influenza virus vaccine, unspecified formulation Tyrone Rock [facility] 05-15-2021 influenza, high dose seasonal, 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-free Unknown Unknown [facility] Work Phone: 11-15-2020 Pfizer-Next [employer] COVID-19 Vacc 30 MCG/0.3ML Intramuscular Suspension Unknown Unknown [facility] 11-12-2020 COVID-19 vaccine, unknown product (NON-US) Ruby Whittington MD Work Phone: [facility] Work Phone: 10-24-2020 Pfizer-BioNTech COVID-19 Vacc 30 MCG/0.3ML Intramuscular Suspension Unknown Unknown [facility] 03-23-2016 tetanus toxoid, reduced diphtheria toxoid, and acellular pertussis vaccine, adsorbed Unknown Unknown [facility] Work Phone: 03-23-2016 varicella virus vaccine Unknown Unknown [facility] Work Phone: 03-01-2002 diphtheria, tetanus toxoids and acellular pertussis vaccine, unspecified formulation Unknown Unknown [facility] Work Phone: 03-01-2002 DTaP, unspecified formulation Tyrone Rock [facility] 03-01-2002 measles, mumps and rubella virus vaccine Unknown Unknown [facility] Work Phone: 03-01-2002 poliovirus vaccine, inactivated Unknown Unknown [facility] Work Phone: 03-01-2002 poliovirus vaccine, unspecified formulation Tyrone Rock [facility] 04-20-2001 hepatitis B vaccine, pediatric or pediatric/adolescent dosage Unknown Unknown [facility] Work Phone: 01-03-1998 diphtheria, tetanus toxoids and acellular pertussis vaccine, unspecified formulation Unknown [facility] Work Phone: 01-03-1998 DTaP, unspecified formulation Tyrone Rock [facility] 09-18-1997 measles, mumps and rubella virus vaccine Unknown Unknown [facility] Work Phone: 09-18-1997 varicella virus vaccine Unknown Unknown [facility] Work Phone: 03-30-1997 hepatitis B vaccine, pediatric or pediatric/adolescent dosage Unknown Unknown [facility] Work Phone: 1996 diphtheria, tetanus toxoids and acellular pertussis vaccine, unspecified formulation Unknown Unknown [facility] Work Phone: 1996 DTaP, unspecified formulation Tyrone Rock [facility] 1996 trivalent poliovirus vaccine, live, oral Unknown Unknown [facility] Work Phone: 1996 diphtheria, tetanus toxoids and acellular pertussis vaccine, unspecified formulation Unknown Unknown [facility] Work Phone: 1996 DTaP, unspecified formulation Tyrone Rock [facility] 1996 haemophilus influenz ae type b vaccine, conjugate unspecified formulation Unknown Unknown [facility] Work Phone: 1996 Hib, unspecified formulation Tyrone Rock [facility] 1996 trivalent poliovirus vaccine, live, oral Unknown Unknown [facility] Work Phone: 1996 diphtheria, tetanus toxoids and acellular pertussis vaccine, unspecified formulation Unknown [facility] Work Phone: 1996 DTaP, unspecified formulation Tyrone Rock [facility] 1996 diphtheria, tetanus toxoids and acellular pertussis vaccine, unspecified formulation Unknown [facility] Work Phone: 1996 DTaP, unspecified formulation Tyrone Rock [facility] 1996 haemophilus influenz ae type b vaccine, conjugate unspecified formulation Unknown Unknown [facility] Work Phone: 1996 Hib, unspecified formulation Tyrone Rock [facility] 1996 measles, mumps and rubella virus vaccine Unknown Unknown [facility] Work Phone: 1996 varicella virus vaccine Unknown Unknown [facility] Work Phone: 1996 diphtheria, tetanus toxoids and acellular pertussis vaccine, unspecified formulation Unknown Unknown [facility] Work Phone: 1996 DTaP, unspecified formulation Tyrone Rock [facility] 1996 haemophilus influenz ae type b vaccine, conjugate unspecified formulation Unknown Unknown [facility] Work Phone: 1996 hepatitis B vaccine, pediatric or pediatric/adolescent dosage Unknown Unknown [facility] Work Phone: 1996 Hib, unspecified formulation Tyrone Rock [facility] 1996 trivalent poliovirus vaccine, live, oral Unknown Unknown [facility] Work Phone: 1996 hepatitis B vaccine, pediatric or pediatric/adolescent dosage Unknown Unknown [facility] Work Phone: Payers Date Payer Category Payer Self-pay [id number] 2023 Self-pay [id number] 2022 Private Health Insurance [id number] 2021 Unknown 2019 Commercial Managed Care - O [id number] 02.315 1996 Unknown [id number] 2.16.84 0.1.851863.3.579.2.593 1996 Unknown [id number] 2.16.8 40.1.253145.3.579.2.727 1996 Unknown [id number] 2.16.8 40.1.093612.3.579.2.727 1996 Unknown [id number] 2.16.8 40.1.121080.3.579.2.727 1996 Unknown [id number] 2.16.840.1.983483.3.579.2.1286 1996 Unknown [id number] 2.16.840.1.615450.3.579.2.1286 1996 Unknown [id number] 2.16.840.1.208018.3.579.2.1286 1996 Unknown [id number] 2.16.840.1.100367.3.579.2.1286 1996 Unknown [id number] 2.16.8 40.1.265635.3.579.2.727 1996 Unknown [id number] 2.16.8 40.1.369449.3.579.2.727 1996 Unknown [id number] 2.16.8 40.1.761044.3.579.2.727 1996 Unknown [id number] 2.16.8 40.1.701986.3.579.2.727 1996 Unknown [id number] 2.16.8 40.1.609399.3.579.2.727 1996 Unknown [id number] 2.16.8 40.1.880948.3.579.2.727 1996 Unknown [id number] 2.16.8 40.1.486621.3.579.2.727 1996 Unknown [id number] 2.16.84 0.1.855180.3.579.2.1259 1996 Unknown [id number] 2.16.84 0.1.312682.3.579.2.1259 1996 Unknown [id number] 2.16.84 0.1.649894.3.579.2.1259 1996 Unknown [id number] 2.16.84 0.1.680939.3.579.2.9 1996 Unknown [id number] 2.16.84 0.1.026564.3.579.2.1259 1996 Unknown [id number] 2.16.84 0.1.457298.3.579.2.1259 1996 Unknown [id number] 2.16.84 0.1.334219.3.579.2.1259 1996 Unknown [id number] 2.16.84 0.1.873178.3.579.2.1259 1996 Unknown [id number] 2.16.84 0.1.522481.3.579.2.1259 1996 Unknown [id number] 2.16.84 0.1.524552.3.579.2.1259 1996 Unknown [id number] 2.16.8 40.1.190450.3.579.2.727 1996 Unknown [id number] 2.16.8 40.1.001872.3.579.2.727 1996 Unknown [id number] 2.16.8 40.1.241287.3.579.2.727 1959 Unknown [id number] Unknown [id number] Unknown [id number] 2.16.8 40.1.871499.3.579.2.531 Unknown [id number] 2.16.8 40.1.222138.3.579.2.531 Unknown [id number] 2.16.8 40.1.734630.3.579.2.531 Unknown [id number] 2.16.8 40.1.193940.3.579.2.531 Unknown [id number] 2.16.8 40.1.046117.3.579.2.531 Unknown [id number] 2.16.8 40.1.164589.3.579.2.531 Unknown [id number] 2.16.8 40.1.260167.3.579.2.531 Unknown [id number] 2.16.8 40.1.988380.3.579.2.531 Unknown [id number] 2.16.8 40.1.008714.3.579.2.531 Unknown [id number] 2.16.8 40.1.053481.3.579.2.531 Unknown [id number] 2.16.8 40.1.493696.3.579.2.531 Unknown [id number] 2.16.8 40.1.981812.3.579.2.531 Unknown [id number] 2.16.8 40.1.371468.3.579.2.531 Social History Date Type Detail Facility Start: 07-14-2022 End: 03-21-2024 No alcohol use No alcohol use [facility] DO Work Phone: Start: 12-29-2020 End: 08-04-2023 Tobacco smoking status [facility] Never smoked tobacco (finding) [facility] Start: 1995 Sex Assigned At Female [facility] Start: 07-14-2022 End: 03-21-2024 Sex Assigned At [facility] Other Tobacco smoking status Never [facility] Tobacco smoking status [facility] Tobacco smoking consumption unknown [facility] Start: 1996 Sex Assigned At Not on file [facility] Start: 04-17-2022 End: 07-14-2022 Exposure to SARS-CoV-2 (event) Not sure [facility] Start: 07-14-2022 End: 2024 Tobacco use and exposure Smokeless tobacco non-user [facility] Start: 07-14-2022 End: 10-05-2024 Alcohol intake Lifetime non-drinker (finding) [facility] Start: 07-13-2022 Gender identity Identifies as female gender (finding) [facility] Start: 02-16-2024 [facility] Start: 03-19-2015 End: 06-23-2024 Sex Female (finding) [facility] Tobacco [facility] Comment on above: Denies Tobacco smoking status No Smoking Status Entered [facility] NEGATED: Highlighted rowStart: NINF History of tobacco use Passive smoker [facility] Medical Equipment Procedure Code Equipment Code Equipment Origin al Text Equipment Identifier Dates Pen Bosworth [id number] X 5 MM Start: 05-18-2022 Goals Date Patient Goal Desired Activity /State Personal health goal Functional Status Date Assessment Result Facility 10-14-2024 Functional Status N/A [facility] 09-06-2024 Functional Status N/A [facility] 09-05-2024 Functional Status N/A [facility] 09-05-2024 Functional Status N/A [facility] 03-18-2024 Functional Status N/A [facility] 09-29-2023 Functional Status N/A [facility] 03-22-2023 Functional Status N/A [facility] 02-18-2022 Functional Status N/A [facility] Clinical Notes 01-14-2022 to 10-18-2024 HIPOLITO Shore - 10/18/2024 9:50 AM aPvan Abreu LPN - 10/10/2024 10:50 AM HIPOLITO Robert - 10/05/2024 2:20 PM Pavan Abreu LPN - 09/19/2024 2:00 PM HIPOLITO Robert - 09/07/2024 2:30 PM EST Note Date & Type Note Facility 10-18-2024 History of Presen t illness Narrative Reason for Appointment: Patient ID: Tawnya Shay is a 29 y.o. female who presents for Routine Visit Patient presents today for Return OB appointment. MEDICATIONS Current Outpatient Medications Medication Instructions ASPIRIN 81 PO 81 mg, Daily citalopram (CELEXA) 20 mg, Oral, Every 24 hours levothyroxine (SYNTHROID, LEVOXYL) 100 [...] nursing note reviewed. Exam conducted with a food production machine operator present. Vitals: Estimated body mass index is 41.35 kg/m as calculated from the following: Height as of 08/25/23: 5' 7 . Weight as of this encounter: 264 lb. BP: 120/80 Patient's last menstrual period was 02/02/2024 (exact date). ASSESSMENT & PLAN ICD-10-CM 1. 37 weeks gestation of Z3A.37 POCT urinalysis dipstick manually resulted 2. Third trimester Z34.93 POCT urinalysis dipstick manually resulted 3. Anxiety, generalized (CMS/HCC) F41.1 citalopram (CeleXA) 20 MG tablet Return OB: Patient presents today for a routine obstetrics appointment. Patient is currently 37w0d . Patient states she is doing well but has complaints of being tired due to current . Patient has verbalizes frequent movement. labor precautions was discussed/given and patient was instructed to perform kick counts three times a day. Orders Placed This Encounter Procedures POCT urinalysis dipstick manually resulted Follow Up: Patient is to return to office in 1 week for routine OB appointment. She continues with weekly NST and BPP. Reviewed growth ultrasound from 10/13 with patient today. TSH from 09/21/24 2.52 Documented by Tonya Mata NP on behalf of: HIPOLITO Shore documented in this encounter [facility] 10-16-2024 Note Microbiology PROCEDURE: Strep Screen Culture [R1] SOURCE: Throat BODY SITE: COLLECTED DATE/TIME: 10/14/2024 09:25 EST RECEIVED DATE/TIME: 10/14/2024 13:15 EST START DATE/TIME: 10/14/2024 13:15 EST FREE TEXT SOURCE: Etta Merino Patty FINAL REPORTS Final Report [] Verified Date/Time: 10/16/2024 09:02 EST Streptococcus Group A screen negative Performing Locations R1: This test was performed at: [facility], [address] [place] [address], [id number] , , [facility] Comment on above: Performed By: #### [id number] #### [facility] [address] [place] [id number] 10-16-2024 Note Microbiology PROCEDURE: Strep Screen Culture [R1] SOURCE: Throat BODY SITE: COLLECTED DATE/TIME: 10/14/2024 09:25 EST RECEIVED DATE/TIME: 10/14/2024 13:15 EST START DATE/TIME: 10/14/2024 13:15 EST FREE TEXT SOURCE: Etta Merino, Etta FINAL REPORTS Final Report [] Verified Date/Time: 10/16/2024 09:02 EST Streptococcus Group A screen negative Performing Locations R1: This test was performed at: [facility], [address] [place] [address], [id number] , , [facility] Comment on above: Performed By: #### [id number] #### [facility] [address] [place] [id number] 10-14-2024 Evaluation + Plan note Diagnostic Tests PendingStrep Screen Culture 10/14/24 [facility] 10-14-2024 Hospital Discharg e instructions Patient Education 10/14/2024 09:30:20 Pharyngitis, Uheh-bn-Tyro Pharyngitis Pharyngitis is a sore throat (pharynx). [...] Follow these instructions at home: Medicines Take arax-cec-pvvtgmq and prescription medicines only as told by [...] and water are not available, use hand tunnel worker. Do not touch your eyes, nose, or [...] provider. Document Revised: 10/29/2021 Document Reviewed: 10/29/2021 readeo Patient Education 2023 [employer]. Follow Up Care 10/14/2024 08:59:06 With:DARWIN JONES CNP Address: [address] [place] [phone] When: Unknown [facility] 10-14-2024 Note Patient Education Infectious [...] these instructions at home: Medicines ??? Take cpjd-brq-ircazss and prescription medicines only as told by [...] and water are not available, use hand tunnel worker. ??? Do not touch your eyes, nose, [...] provider. Document Revised: 10/29/2021 Document Reviewed: 10/29/2021 readeo Patient Education ? 2023 [employer] Factory[employer]fren [facility] 10-10-2024 History of Presen t illness [...] H/O calculus of kidney during Tiffani's disease ([facility]) 02/2022 History of Obesity (BMI 30-39.9) Pericarditis HISTORY PAST MEDICAL HISTORY SOCIAL HISTORY Past Medical History: Diagnosis Date Anxiety Blood type, Rh positive H/O calculus of kidney during Tiffani's disease ([facility]) 02/2022 History of Obesity (BMI [...] nursing note reviewed. Exam conducted with a food production machine operator present. Vitals: Estimated body mass index is [...] Brain Way DO documented in this encounter [facility] 10-05-2024 History of Presen t illness Narrative [...] H/O calculus of kidney during Tiffani's disease ([facility]) 02/2022 History of Obesity (BMI 30-39.9) Pericarditis HISTORY PAST MEDICAL HISTORY SOCIAL HISTORY Past Medical History: Diagnosis Date Anxiety Blood type, Rh positive H/O calculus of kidney during Tiffani's disease ([facility]) 02/2022 History of Obesity (BMI [...] of: HIPOLITO Shore documented in this encounter [facility] 09-19-2024 History of Presen t illness Narrative [...] H/O calculus of kidney during Tiffani's disease ([facility]) 02/2022 History of Obesity (BMI 30-39.9) Pericarditis HISTORY PAST MEDICAL HISTORY SOCIAL HISTORY Past Medical History: Diagnosis Date Anxiety Blood type, Rh positive H/O calculus of kidney during Tiffani's disease ([facility]) 02/2022 History of Obesity (BMI [...] nursing note reviewed. Exam conducted with a food production machine operator present. Vitals: Estimated body mass index is [...] Brain Way DO documented in this encounter [facility] 09-07-2024 History of Presen t illness Narrative [...] of: HIPOLITO Shore documented in this encounter [facility] 09-07-2024 Note History and Physical HOSPITAL REGULATIONS: [...] scheduled. Rogelio Nath M.D. leeroy Dictated: 09/05/2024 [id number] Transcribed: 09/05/[address] [facility] Comment on above: Result Comment: Elec tronically Signed By: Rogelio Nath MD\.br\Date and Time Signed: 09/07/24 08:38 EST 09-06-2024 Hospital Discharg e instructions Patient Education 09/06/2024 16:15:07 Concussion, Adult, Nwvk-bi-Epxw Concussion, Adult A concussion is a brain [...] if you are dizzy. General instructions Take tklg-ncu-rnahdur and prescription medicines only as told by your doctor. Avoid taking strong pain medicines (opioids) after a concussion. Do not drink alcohol until your doctor says you can. Watch your symptoms and tell other people to do the same. Other problems can occur after a concussion. Tell your farmworker animal, teachers, school nurse, school counselor, baseball coach, or software trainer about your injury and symptoms. Tell [...] the National Suicide Prevention Lifeline at or 116. This is open 24 hours a day. Text the Crisis Text Line at 821308. This information is not intended to replace advice given to you by your health care provider. Make sure you discuss any questions you have with your health care provider. Document Revised: 12/25/2022 Document Reviewed: 12/25/2022 readeo Patient Education 2023 [employer]. Follow Up Care 09/06/2024 13:58:27 With:DARWIN JONES Address: [address] [place] [address] [place] [phone] Business (1) When:09/09/2024 16:14:40 Comments:Call to schedule a follow-up appointment with your primary care provider. Use Zofran as needed for nausea/vomiting. Return to the ED with any new or worsening symptoms. [facility] 09-06-2024 Note ED Patient Education [...] you are dizzy. General instructions ??? Take mhah-djl-uwelvdn and prescription medicines only as told by your doctor. ??? Avoid taking strong pain medicines (opioids) after a concussion. ??? Do not drink alcohol until your doctor says you can. ??? Watch your symptoms and tell other people to do the same. Other problems can occur after a concussion. ??? Tell your farmworker animal, teachers, school nurse, school counselor, baseball coach, or software trainer about your injury and symptoms. Tell [...] any (more content not included)... [facility] 09-06-2024 Evaluation + Plan note Extrac [...] date 09/06/24 15:25:00 EST, 09/06/24 15:25:00 EST [facility] [phone] NoteDischarge Instructions Given Worsening The following Patient Education Materials have been given to the patient: ~~ [facility] Evaluation + Plan note Extracted from: [...] Diagnostic Tests Pending * Urine Culture 09/05/24 [facility] 01-21-2025 Hospital Discharge instructions Patient Education 09/05/2024 04:35:45 Syncope, Adult, Gkzj-nc-Gple Syncope, Adult Syncope is when you pass [...] you until you feel better. Medicines Take cdwi-xmd-etjykdk and prescription medicines only as told by [...] right away. Call your local emergency services ([address] Do not wait to see [...] provider. Document Revised: 12/11/2021 Document Reviewed: 12/11/2021 readeo Patient Education 2023 [employer]. 09/05/2024 04:35:45 Nausea and Vomiting, Adult, Nqrz-tg-Nplv Nausea and Vomiting, Adult Nausea is feeling [...] fruit juice). ?Low-calorie sports drinks. Eat bland, pjsy-hr-isgrzz foods in small amounts as you are able, such as: ?Bananas. ?Applesauce. ?Rice. ?Low-fat (lean) meats. ?[place]. ?Crackers. Avoid drinking fluids that have a lot of sugar or caffeine in them. This includes energy drinks, sports drinks, and soda. Avoid alcohol. Avoid spicy or fatty foods. General instructions Take rigw-nvs-cfxpwnb and prescription medicines only as told by your doctor. Drink enough fluid to keep your pee (urine) pale yellow. Wash your hands often with soap and water for at least 20 seconds. If you cannot use soap and water, use hand tunnel worker. Make sure that everyone in your home [...] your doctor about eating and drinking. Take qzqn-pwu-kxocdpx and prescription medicines only as told by your doctor. Contact your doctor if your symptoms get worse or you have new symptoms. Keep all follow-up visits. This information is not intended to replace advice given to you by your health care provider. Make sure you discuss any questions you have with your health care provider. Document Revised: 02/06/2022 Document Reviewed: 02/06/2022 readeo Patient Education 2023 [employer]. 09/05/2024 04:35:45 Diarrhea, Adult, Xqop-de-Aksz Diarrhea, Adult Diarrhea is when you pass [...] regular sports drinks. ?Avoid alcohol. Eat bland, namr-bj-ekauwm foods in small amounts as you are able. These foods include: ?Bananas. ?Applesauce. ?Rice. ?Low-fat (lean) meats. ?[place]. ?Crackers. Avoid spicy or fatty foods. Medicines Take ftna-hgj-kfchrfs and prescription medicines only as told by your doctor. If you were prescribed antibiotics, take them as told by your doctor. Do not stop taking them even if you start to feel better. General instructions Wash your hands often using soap and water for 20 seconds. If soap and water are not available, usehand tunnel worker. Others in your home should wash their [...] provider. Document Revised: 01/19/2023 Document Reviewed: 01/19/2023 readeo Patient Education 2023 [employer]. 09/05/2024 04:35:45 Dehydration, Adult, Woqc-cx-Mzfn Dehydration, Adult Dehydration is a condition in [...] or sea (high in altitude). The thinner, veneer drier feeder air causes more fluid loss. Doing exercises [...] of fat or sugar. General instructions Take ptlo-twk-lrprwto and prescription medicines only as told by [...] provider. Document Revised: 03/01/2023 Document Reviewed: 03/01/2023 readeo Patient Education 2023 [employer]. 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 Way for further evaluation management. Please return to the ED for any new or worsening symptoms. [facility] [phone] NoteProgress Note-Nurse @[id number] OB RN arrived in patient room in [...] for further evaluation on OB unit.[facility]01-21-2025 NoteED Patient Education Note Gastroenterology Nausea [...] ? Low-calorie sports drinks. ??? Eat bland, aiqt-gn-tdeeqw foods in small amounts as you are able, such as: ? Bananas. ? Applesauce. ? Rice. ? Low-fat (lean) meats. ? [place]. ? Crackers. ??? Avoid drinking fluids that have a lot of sugar or caffeine in them. This includes energy drinks, sports drinks, and soda. ??? Avoid alcohol. ??? Avoid spicy or fatty foods. General instructions ??? Take syma-dnf-yqcnzwg and prescription medicines only as told by your doctor. ??? Drink enough fluid to keep your pee (urine) pale yellow. ??? Wash your hands often with soap and water for at least 20 seconds. If you cannot use soap and water, use hand tunnel worker. ??? Make sure that everyone in your [...] doctor about eating and drinking. ??? Take ngjd-ucf-exasssb and prescription medicines only as told by your doctor. ??? Contact your doctor if your symptoms get worse or you have new symptoms. ??? Keep all follow-up visits. This information is not intended to replace advice given to you by your health care provider. Make sure you discuss any questions you have with your health care provider. Document Revised: 02/06/2022 Document Reviewed: 02/06/2022 [employer] Patient Education ? 2023 [employer] Infectious Disease Diarrhea, Adult Diarrhea is [...] ORS (ora (more content not included)...[facility] 08-25-2024 Evaluation note* Diagnosis Onset Date Resolution Status Admit Date Class 2 obesity with body ma ss index (BMI) of 37.0 to 37.9 in adult acute August 25 11:56am Tiffani's disease acute 2024 11:56am Hypothyroidism acute August 252024 11:56am Mild left ventricular hypertrophy acute August 25 11:56am Second trimester acute August 25, 2024 11:56am [facility] Work Phone: 1(990) 302-231701-08-2025 History of Present illness Narrative* Aleisha Abreu [...] H/O calculus of kidney during Tiffani's disease ([facility]) 02/2022 History of Obesity (BMI [...] nursing note reviewed. Exam conducted with a food production machine operator present. Vitals: Estimated body mass index is [...] of: Brain Way DO documented in this encounterCox Walnut [id number] History of Present illness Narrative* Aleisha Abreu [...] H/O calculus of kidney during Tiffani's disease ([facility]) 02/2022 History of Obesity (BMI 30-39.9) Pericarditis HISTORY PAST MEDICAL HISTORY SOCIAL HISTORY Past Medical History: Diagnosis Date Anxiety Blood type, Rh positive H/O calculus of kidney during Tiffani's disease ([facility]) 02/2022 History of Obesity (BMI [...] nursing note reviewed. Exam conducted with a food production machine operator present. Vitals: Estimated body mass index is [...] of: Brain Way DO documented in this encounterCox Walnut LawnRzhboqmskq34-01-4517 History of Present illness Narrative* Laura Herron [...] male Have you been seen here at [facility] in a previous ? No Recent ER visits or hospitalizations? no Bring blood sugar log or meter with you today? (Please bring them with you for every visit at [facility]) n/a Flu vaccine (Jun-October)? Yes Any [...] effusion. Also she was then evaluated by publishing systems analyst who told her that she had pericarditis and that resolved with a taking Motrin however she did not had an echocardiogram. Saw Dr. Coronado. 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 Yes NotIn System Ref Prov yn241-wcyd-tqutn acid ( 19) 29 mg iron- 1 [...] would recommend she establishes care with a technology infusion specialist for it to be further evaluated 7. [...] Please refer her locally to see a technology infusion specialist for the incidental finding on the CT [...] Hayden Reilly MD, FACOG (she/hers) Maternal- Medicine [facility] [address] [facility] [address] [place] [address] This document was created with mohchi technology. Though I make every effort to review the dictation as it is transcribed, on occasion the spoken word can be misinterpreted by the technology leading to inappropriate words, phrases, or sentences. This note is addressed to the requesting provider as a consultation for clinical guidance. Specificmedical abbreviations are occasionally used and those are generally approved by the [place]?Board of?Obstetrics and?Gynecology?as well as?Lauryn s abbreviations. The above plan of care was based solely on the diagnoses for which a consultation was requested. ?More frequent testing may be indicated based on her other medical/obstetrical conditions. The management of other or medical conditions is beyond the scope of requested consultation and will c ontinue to be followed by the primary school custodian or primary care provider. Note to patient: [...] opinion of the practitioner. documented in this encounterMain Campus Medical CenterIRIS.TV [id number] Radiology Diagnostic study noteTHE SURGICAL H[facility] Main [place] [address] [place] [address] Ultrasound Report Signed Patient: Tawnya Herring MR#: [id number] : 1995 Acct:[id number] Age/Sex: 28 / F ADM Date: 4 Loc: Room: Type: [facility] Attending Dr: Brain Way DO Ordering [...] Norton Jr., D.O.06/22/2024 4:00 PM Dictation Location: [place] [address] Tech: Rae De Paz Transcribed By: AGUILAR 06/22/24 1600 Dictated By: Zay Norton Jr, DO 06/22/24 1552 Signed By: 06/22/24 1600 [facility]10-28-2024 History of Present illness Narrative * [...] H/O calculus of kidney during Tiffani's disease ([facility]) 02/2022 History of Obesity (BMI 30-39.9) Pericarditis HISTORY PAST MEDICAL HISTORY SOCIAL HISTORY Past Medical History: Diagnosis Date Anxiety Blood type, Rh positive H/O calculus of kidney during Tiffani's disease ([facility]) 02/2022 History of Obesity (BMI [...] of: Brain Way DO documented in this encounterCox Walnut LawnDbfvtmyfgr90-25-9083 Evaluation note* Diagnosis Onset Date Resolution Status Admit Date Well adult exam noneactive May 11, 2024 10:46am [facility] Work Phone: 1(755) 971-944609-25-2024 History of Present illness Narrative* Aleisha Abreu [...] H/O calculus of kidney during Tiffani's disease ([facility]) 02/2022 History of Obesity (BMI [...] nursing note reviewed. Exam conducted with a food production machine operator present. Vitals: Estimated body mass index is [...] of: Brain Way DO documented in this encounterCox Walnut [id number] History of Present illness Narrative* Coral Rg [...] H/O calculus of kidney during Tiffani's disease ([facility]) 02/2022 History of Obesity (BMI 30-39.9) Pericarditis HISTORY PAST MEDICAL HISTORY SOCIAL HISTORY Past Medical History: Diagnosis Date Anxiety Blood type, Rh positive H/O calculus of kidney during Tiffani's disease ([facility]) 02/2022 History of Obesity (BMI [...] nursing note reviewed. Exam conducted with a food production machine operator present. Vitals: Estimated body mass index is [...] of: Brain Way DO documented in this encounterCox Walnut LawnYrtyqorozx88-03-9485 History of Present illness Narrative* Thelma Elizabeth [...] H/O calculus of kidney during Tiffani's disease ([facility]) 02/2022 History of Obesity (BMI [...] undercooked meat, and stay away from [facility]. Patient has also been advised to not [...] by: Thelma Elizabeth LPN documented in this encounterCox Walnut LawnFwcveonjmc78-15-1488 Hospital Discharge instructions Patient Education 03/18/2024 12:15:03 [...] provider. Document Revised: 01/31/2021 Document Reviewed: 01/31/2021 [employer] Patient Education 2022 [employer]. 03/18/2024 12:15:03 Subchorionic Hematoma Subchorionic Hematoma A [...] provider. Document Revised: 04/28/2021 Document Reviewed: 04/28/2021 [employer] Patient Education 2022 [employer]. Follow Up Care 03/18/2024 08:08:01 With:Rogelio Nath Address: [address], [facility] [address] [place] [address]- Business (1) When:03/21/2024 11:54:39 With:DARWIN JONES Address: [address] [facility] [place] [address] [phone] Business (1) When:Within 3 Day(s) [facility] 08-03-2024 NoteED Patient Education Note [...] provider. Document Revised: 01/31/2021 Document Reviewed: 01/31/2021 [facility] Patient Education ? 2022 [employer]. Subchorionic Hematoma A hematoma is a collection of blood outside of the blood vessels. A subchorionic hematoma is a collection of blood between the outer wall of the embryo (chorion) and the inner wall of the uterus. This condi (more content not included)...[facility]04-04-2024 NoteHNO ID: [id number] Author: RUBY WHITTINGTON MD Service: ? Author [...] RTN 1 year. Ruby Whittington MD Endocrinology StaffPremier Health [facility]04-04-2024 History of Present illness Narrative* [...] Whittington MD Endocrinology Staff documented in this encounterSt. Rita'S Hospital04-04-2024 Instructions* Patient Instructions* Odalis Greene - 11/18/2023 7:58 AM EDT Thank you for [facility] the [facility] Department of Endocrinology, Diabetes and Metabolism. Did you know that you need to call 48 hours in advance of your scheduled visit, if you are unable to make your appointment? The Endocrinology [facility] Metabolism [facility] thanks you for your commitment, because patients not showing to their appointment results in a lost opportunity for patients to receive [facility] health care at the [facility]. To Cancel an appointment, please choose one of the following: - Call the Appointment Call Center at [phone] - From [employer], Go to Appointments - Cancel Appts If cancelling, consider your need to reschedule to prevent further delays in your care. To Schedule an appointment, please choose one of the following: - Call the Appointment Call Center at [phone] - From [employer], Go to Appointments - Request an Appt documented in this encounterSt. Rita'S Hospital02-14-2024 Hospital Discharge instructions Patient Education 09/29/2023 [...] numbers. This can be done either in [place] (U.[place] or metric measurements. Note that charts and online BMI calculators are available to help you find your BMI quickly and easily without having to do these calculations yourself. To calculate your BMI in [place] ([place] measurements: 1.Measure your weight in pounds [...] Centers for Disease Control and Prevention: www.cdc.gov [place] Heart Association: www.heart.org National Heart, Lung, and Blood [facility]: www.nhlbi.nih.gov Summary Body mass index (BMI) is a number that is calculated from a person's weight and height. BMI may help estimate how much of a person's weight is composed of fat. BMI can help identify thosewho may be at higher risk for certain medical problems. BMI can be measured using Grenadian measurements or metric measurements. BMI charts are used to identify whether you are underweight, normal weight, overweight, or obese. This information is not intended to replace advice given to you by your health care provider. Make sure you discuss any questions you have with your health care provider. Document Revised: 04/24/2020 Document Reviewed: 03/01/2020 [employer] Patient Education 2022 [employer]. 09/29/2023 11:04:59 Sinus Infection, Adult Sinus Infection, [...] saline washes). ?Medicines that treat allergies (antihistamines). ?Wklt-avl-isfzyyo pain relievers. If caused by bacteria, your [...] at home: Medicines Take, use, or apply jhdz-zfc-jqetlmz and prescription medicines only as told by [...] and water are not available, use hand tunnel worker. Do not smoke. Avoid being around people [...] provider. Document Revised: 07/07/2022 Document Reviewed: 07/07/2022 [employer] Patient Education 2022 [employer]. Follow Up Care 09/29/2023 09:12:00 With:ROBERT AMIEDARWIN Address: [address] [place] [address] [place] [place] [address]- When: Unknown [facility] 02-06-2024 Evaluation [...] is required on scripts in the state [facility]. Sep, Other *Progress note was completed with the assistance of voice recognition software for dictation purposes. Please excuse any grammatical errors that were not corrected during review process. [facility] Other 01-10-2024 Evaluation note* Encounter Date Diagnosis [...] that were not corrected during review process. [facility] Other 12-01-2023 Miscellaneous Notes* Telephone Encounter - Kenan Gomez - 07/16/2023 9:39 AM EST LVM to let patient know their appt has been rescheduled with Dr. Whittington. documented in this encounterSt. Rita'S Hospital11-08-2023 Evaluation note* Encounter Date Diagnosis Assessment [...] comfortable prescribing this medication at this time. [facility] Other 10-24-2023 NoteHNO ID: [id number] Author: Francy Gan PA-C Service: ? Author Type: Physician Video And Sound Recorder Type: Progress Notes Filed: 06/08/2023 2:53 PM [...] will be in touch with results via [employer]OnLine HPI: Tawnya is a 27 year old [...] testing/treatment Medical Decision Making Level: 3 - LowPremier Health [facility]10-24-2023 History of Present illness Narrative* [...] will be in touch with results via WazeT[employer] HPI: Tawnya is a 27 year old [...] Level: 3 - Low documented in this [facility]10-24-2023 Instructions* Patient Instructions* Francy Gan PA-C - 06/08/2023 2:16 PM EDT Continue the omeprazole for another 1.5 months documented in this [facility]10-11-2023 Evaluation note* Encounter Date Diagnosis [...] that were not corrected during review process. [facility] Other 09-13-2023 Evaluation note* Encounter Date Diagnosis [...] Discussed short term 8 week course vs. care home management. Discussed pros and cons of [...] that were not corrected during review process. [facility] Other 09-01-2023 Evaluation note* Encounter Date Diagnosis [...] SCANNED INTO PATIENT CHART AND FAXED TO [employer]. Apr, Other We did briefly discussed the [...] that were not corrected during review process. [facility] Other 08-08-2023 Hospital Discharge instructions Patient Education 03/22/2023 22:52:44 Urinary Tract Infection, Adult, Gguf-gh-Koox Urinary Tract Infection, Adult A urinary tract [...] Follow these instructions at home: Medicines Take nspk-xts-zyvzjdf and prescription medicines only as told by [...] provider. Document Revised: 03/14/2021 Document Reviewed: 03/14/2021 [employer] Patient Education 2022 [employer]. Follow Up Care 03/22/2023 19:54:03 With:DARWIN JONES Address: [address] [place] [phone] Business (1) When:03/25/2023 Comments:Follow-up with your primary care provider in 3 to 5 days. If symptoms worsen, do not improve, or new symptoms arise please report back to emergency department for further evaluation. [facility]08-07-2023 Evaluation + Plan note Diagnostic Tests Pending * Urine Culture 03/22/23 [facility]03-02-2023 Evaluation note* Encounter Date Diagnosis Assessment Notes Treatment Notes Treatment Clinical Notes Oct, Nausea & vomiting (ICD-10 - R11.2) [facility] Other 02-20-2023 Evaluation note* Encounter Date Diagnosis [...] Encounter for weight management (ICD-10 - Z76.89) [facility] Other 02-13-2023 Miscellaneous Notes* Addendum Note - [...] daily. Ruby Whittington MD documented in this encounterSt. Rita'S Hospital01-18-2023 Evaluation note* Encounter Date Diagnosis Assessment [...] Encounter for weight management (ICD-10 - Z76.89) [facility] Other 01-10-2023 Evaluation note* Encounter Date Diagnosis [...] as inspiration Patient set the following goals: [facility] Other 12-16-2022 Evaluation note* Encounter Date Diagnosis [...] E06.3) She was recently seen by an shiatsu therapist at [facility] for elevated TSH. She is currently on adequate supplementation and will follow up with them. Jul, Daytime sleepiness (ICD-10 - R40.0) Continue to work on good sleep hygiene and control factors that she can.This could also improve with additional water intake. Jul, Mild depression (ICD-10 - F32.9) Jul, Encounter for weight management (ICD-10 - Z76.89) [facility] Other 11-29-2022 History of Present illness Narrative* [...] MD Endocrinology Staff CC: Darwin Jones APRN, DIABETES TERRITORY MANAGER. [address] [place] [id number] documented in this encounterSt. Rita'S Hospital11-29-2022 Instructions* Patient Instructions* Soo Begum Ma - 07/14/2022 8:46 AM EST Thank you for [facility] the [facility] Department of Endocrinology, Diabetes and Metabolism. Did you know that you need to call 48 hours in advance of your scheduled visit, if you are unable to make your appointment? The [facility] thanks you for your commitment, because patients not showing to their appointment results in a lost opportunity for patients to receive [facility] health care at the [facility]. To Cancel an appointment, please choose one of the following: - Call the Appointment Call Center at [phone] - From [employer], Go to Appointments - Cancel Appts If cancelling, consider your need to reschedule to prevent further delays in your care. To Schedule an appointment, please choose one of the following: - Call the Appointment Call Center at [phone] - From [employer], Go to Appointments - Request an Appt documented in this encounterSt. Rita'S Hospital11-02-2022 Evaluation note* Encounter Date Diagnosis Assessment [...] samples and titrate her up slowly until [facility] insurance kicks in in August. We [...] will discuss at later date if needed. [facility] Other 10-20-2022 Evaluation note* Encounter Date Diagnosis [...] Pt understood and agreed to tx plan. [facility] Other 10-12-2022 Evaluation note* Encounter Date Diagnosis [...] patient set personal goal using given handout. [facility] Other 10-10-2022 Miscellaneous Notes* Telephone Encounter - Linn Hancock - 05/25/2022 2:35 PM EDT LVM for patient that appt on 05/[address] George has been rescheduled to 07/[facility] at [facility] with Dr. Robertson. sending mail reminder as well. documented in this encounterSt. 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 Her Mallampati is not [...] of a comprehensive approach to obesity management [facility] Other 09-02-2022 Evaluation note* Encounter Date Diagnosis [...] to start the weight management program at [facility] in the coming months.Nothing further needed [...] that were not corrected during review process. [facility] Other 07-07-2022 Hospital Discharge instructions Patient Education [...] Follow these instructions at home: Medicines Take nstb-tie-dmmnfhs and prescription medicines only as told by [...] 04/27/2002 Document Revised: 08/05/2018 Document Reviewed: 05/14/2017 [employer] Patient Education 2020 [employer]. 02/18/2022 22:49:49 Migraine Headache Migraine Headache A [...] Follow these instructions at home: Medicines Take bjlh-zwp-xvhbdrg and prescription medicines only as told by your health care provider. Ask your health care provider if the medicine prescribed to you: ?Requires you to avoid driving or using heavy machinery. ?Can cause constipation. You may need to take these actions to prevent or treat constipation: ?Drink enough fluid to keep your urine pale yellow. ?Take tayk-ikc-utzopll or prescription medicines. ?Eat foods that are [...] 08/02/2006 Document Revised: 11/24/2019 Document Reviewed: 09/14/2019 [employer]o Patient Education 2020 [employer] Inc. Follow Up Care 02/18/2022 20:32:17 With:DARWIN JONES Address: [facility] [address] [facility] [phone] Business (1) When:Within 3 Day(s) [facility]07-06-2022 Evaluation + Plan noteExtracted from: [...] voices understanding and is agreeable to plan. [facility]07-06-2022 Evaluation note* Encounter Date Diagnosis [...] and remind her of lab draw at [facility]. Feb, Thyromegaly (ICD-10 - E01.0) Discussed [...] that were not corrected during review process. 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 Medical History Abnormal thyroid ult rasound February 2022 work-up pending by ENT Surgical History 2019 Surgical History Cystoscopy 05/2021 Surgical History 2020 Hospitalization History See surgical hx 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 [address], 2022 Other We have discuss ed the necessity [...] that were not corrected during review process. 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* Diagnosis Onset Date Resolution Status Obesity acute Class 2 obesity with body ma ss index (BMI) of 37.0 to 37.9 in adult acute [facility] Work Phone: evaluation note* Diagnosis Onset Date Resolution Status Obesity acute Class 2 obesity with body ma ss index (BMI) of 37.0 to 37.9 in adult acute Class 2 obesity with body ma ss index (BMI) of 37.0 to 37.9 in adult acute [facility] Work Phone: evaluation note* Diagnosis Onset Date Resolution Status Class 2 obesity with body ma ss index (BMI) of 37.0 to 37.9 in adult acute Class 2 obesity with body ma ss index (BMI) of 37.0 to 37.9 in adult acute [facility] Work Phone: evaluation note* Diagnosis Onset Date Resolution Status Class 2 obesity with body ma ss index (BMI) of 37.0 to 37.9 in adult acute [facility] Work Phone: evaluation note* Diagnosis Onset Date Resolution Status Well adult exam noneactive [facility] Work Phone: evaluation note* Diagnosis Second trimester state, incidental 18 weeks gestation of Screening, , for anatomic survey Encounter for anatomic survey documented in this encounter [facility] HealthcareEvaluation note* Diagnosis 22 weeks gestation of [...] incidental Abnormal TSH documented in this encounter [facility] HealthcareEvaluation note* Diagnosis 20 weeks gestation of [...] type Depression affecting [facility]* Diagnosis History of pericarditis- Primary Mild concentric left ventricular hypertrophy (LVH) 25 weeks gestation of documented in [facility]* Diagnosis 35 weeks gestation of Third trimester state, incidental documented in this encounter [facility] HealthcareEvaluation note* Diagnosis Third trimester state, incidental 36 weeks gestation of Excessive growth affecting management of , antepartum, single or unspecified fetus documented in this encounter [facility] HealthcareEvaluation note* Diagnosis 37 weeks gestation of Third trimester state, incidental Anxiety, generalized (CMS/HCC) documented in this encounter [facility] HealthcareHistory general Narrative - Reported* Type Description [...] History 2020 Hospitalization History See surgical hx [facility] Other History general Narrative - Reported* Type [...] Surgical History 2020 Hospitalization History See surgical [facility] Other History general Narrative - Reported* Type [...] History 2020 Hospitalization History See surgical hx [facility] Other History of Present illness Narrative* Patient [...] no other testing or intervention appears necessary. -[facility] [address] DO Work Phone: Hospital course Narrative No data available for this section [facility] No data available for this section [facility] InstructionsNot on filedocumented in this encounter [facility]* Attachments The following attachments cannot be sent through Care Everywhere. * Preeclampsia (Grenadian) [facility] SystemInstructionsNot on file documented in this encounterPro[facility] SystemProgress note No data available for this section [facility] (narrative)* 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) Referral Organization [facility] Referring Provider First Name Darwin Referring Provider Last Name [facility] Referring Provider Specialty Nurse Pract itioner Referred Provider Specialty Endocrinolog y Referral Priority Routine [facility] Other Reason for referral (narrative)* Diagnostic Procedure Only (Routine) - Pending Review Specialty Diagnoses / Procedures Referred By Clint t Referred To Contact XR IMAGING Diagnoses Dysphagia, unspecified type Procedures XR MODIFIED BARIUM SWALLOW W SPEECH THERAPY RADIOLOGIC EXAM SWALLOW FUNCTION CONTRAST STUDY Francy Gan PA-C [address] [place] [address] Xr Imaging [place] [id number] Referral ID Status Reason Start Date Expiration Date Visits Requested Visits Authorized [id number] Pending Review Auto-Generat ed Referral 3 07/07/[address] [facility] Chief Complaint TAWNYA HERRING is being [...] Dysphagia, unspecifi ed type (R13.10) Referral Organization [facility] Referring Provider First Name Darwin Referring Provider Last Name [facility] Referring Provider Specialty Nurse Pract itioner Referred Organization [facility] Referred Address [address] [place], [place],[address] Referred Provider Specialty Ear, Nose an d Throat Referral Priority Routine Reason ABNORMAL US OF THYRO ID Newly discovered [facility] Diagnosis 1 Thyromegaly (E01.0) Referral Organization [facility] Referring Provider First Name Darwin Referring Provider Last Name [facility] Referring Provider Specialty Nurse Pract itioner Referred Provider Specialty Ear, Nose an d Throat Referral Priority Routine Additional Source Comments INFORMATION SOURCE (unrecogn ized section and content) DATE CREATED AUTHOR 09/04/2021 [facility] DATE CREATED AUTHOR AUTHOR'S ORGANIZ ATION 12/18/2022 [facility] DATE CREATED AUTHOR AUTHOR'S ORGANIZ ATION 11/22/2023 [facility] DATE CREATED AUTHOR AUTHOR'S ORGANIZ ATION 03/20/2024 [facility] DATE CREATED AUTHOR AUTHOR'S ORGANIZ ATION 08/05/2024 [facility] DATE CREATED AUTHOR AUTHOR'S ORGANIZ ATION 09/06/2024 [facility] DATE CREATED AUTHOR AUTHOR'S ORGANIZ ATION 09/08/2024 [facility] DATE CREATED AUTHOR AUTHOR'S ORGANIZ ATION 09/13/2024 [facility] DATE CREATED AUTHOR AUTHOR'S ORGANIZ ATION 10/12/2024 [facility] DATE CREATED AUTHOR AUTHOR'S ORGANIZ ATION 10/15/2024 [facility] DATE CREATED AUTHOR AUTHOR'S ORGANIZ ATION 10/16/2024 [facility] DATE CREATED AUTHOR AUTHOR'S ORGANIZ ATION 10/17/2024 [facility] Care Teams (unrecognized sec [...] Dates Darwin Jones APRN Primary Care López matthews, Attending Provider Active Start: October 20, 2023 End: October 20, 2023 Team Status: Inactive Member Role Status Dates Darwin Jones APRN Primary Care Provider Active Start: November 01, 2023 End: November 01, [address] Attending Provider Active Start: [facility] 2023 End: November 01, 2023 Team [...] Member Role Status Dates Darwin Jones , COLLISION MECHANIC Primary Care Provider Active Addi Ortega DO [facility] Attending Provider Active Team Status: Inactive Member Role Status Dates Darwin Jones , COLLISION MECHANIC Primary Care Provider Active Brain Way Attending Provider Active Team Status: Active Member Role Status Dates Darwin Joneserwood , COLLISION MECHANIC Primary Care Provider Active Ofelia Hester , COLLISION MECHANIC Active Ofelia Hester , COLLISION MECHANIC Attending Provider Active Team Status: Inactive Member Role Status Dates Darwin Jaclyn Joneserwood , COLLISION MECHANIC Primary Care Provider Active Ofelia R Mir , COLLISION MECHANIC Attending Provider Active Team Status: Inactive Member Role Status Dates PHYSICIAN NO FAMILY Primary Care Provider Active Addi Ortega DO [facility] Attending Provider Active Team Status: Active Member Role Status Dates PHYSICIAN NO FAMILY Primary Care Provider Active Team Status: Inactive Member Role Status Dates Darwin Joneserwood , COLLISION MECHANIC Primary Care Provider, Attend ing Provider Active Team Status: Inactive Member Role Status Dates Darwin Jones , COLLISION MECHANIC Primary Care Provider Active Saad Valera DO Attending Provider Active Commercial Carpet Installer Relationship Specialty Start Date End Date RoberterHerve cavazosa, DIABETES TERRITORY MANAGER [address] [place] [address] Referring Family Medicine 04/22/22 Commercial Carpet Installer Relationship Specialty Start Date End Date RoberterHerve cavazosa, DIABETES TERRITORY MANAGER [address] [facility] [address] [place] [address] Referring Family Medicine 04/22/22 Team Status: Inactive Member Role Status Dates Darwin Jones , COLLISION MECHANIC Primary Care Provider Active Jeovanny Quiros DO Emergency Provider Active Commercial Carpet Installer Relationship Specialty Start Date End Date EasterwoodHervea, DIABETES TERRITORY MANAGER [address] [place] [address] Referring Family Medicine 04/22/22 Commercial Carpet Installer Relationship Specialty Start Date End Date RoberterHerve cavazosa, DIABETES TERRITORY MANAGER [address] [place] [address] Referring Family Medicine 04/22/22 Team Status: Inactive Member Role Status Dates Darwin Jones APRN Attending Provider Active Start: July 23, 2023 End: July 23, 2023 Team Status: Inactive Member Role Status Dates Darwin Jones APRN Attending Provider Active Start: August 25, 2023 End: August 25, 2023 Commercial Carpet Installer Relationship Specialty Start Date End Date Darwin Jones CNP [address] [place] [id number] Referring Family Medicine 04/22/22 Team Status: Inactive [...] 2024 End: April 06, 2024 Addi Andrews [facility] DO [facility] Attending Provider Active Start: April 06, 2024 End: April 06, 2024 Team Status: Inactive Member Role Status Dates Darwin Jones APRN Primary Care Pr ovider, Attending Provider Active Start: May 11, 2024 End: May 11, 2024 Team Status: Inactive Member Role Status Dates Darwin Jones APRN Primary Care Provider Active Start: May 24, 2024 End: May 24, 2024 Brain Seamus , DO Attending Provider Active Start : May 24, 2024 End: May 24, 2024 Team Status: Inactive Member Role Status Dates Darwin Jones APRN Primary Care Provider Active Start: June 22, 2024 End: June 22, 2024 Brain Chiango , DO Attending Provider Active Start : June 22, 2024 End: June 22, 2024 Team Status: Inactive Member Role Status Dates Darwin Jones APRN Primary Care Provider Active Start: June 28, 2024 End: June 28, 2024 Brainjonathan Chiango , DO Attending Provider Active Start : June 28, 2024 End: June 28, 2024 Team Status: Inactive Member Role Status Dates Darwin Jones APRN Primary Care Provider Active Start: July 31, 2024 End: July 31, [address] , DO Attending Provider Active Start : July [...] September 21, 2024 End: September 21, 2024 Commercial Carpet Installer Relationship Specialty Start Date End Date No Pcp, [place] [address] PCP - General Family Medicine 08/19/19 Commercial Carpet Installer Relationship Specialty Start Date End Date No Pcp, [place] [address] PCP - General Family Medicine 08/19/19 Commercial Carpet Installer Relationship Specialty Start Date End Date No Pcp, [place] [address] PCP - General Family Medicine 08/19/19 Goals [...] George has been rescheduled to 07/08 at [facility] with Dr. Robertson. sending mail reminder as [...] or prosecute any alcohol or drug abuse patient.[facility] the event this information is protected by the Federal Confidentiality of Alcohol and Drug Abuse Patient Records regulations: The Federal rules restrict any use of the information to criminally investigate or prosecute any alcohol or drug abuse patient.[facility] the event this information is protected by the Federal Confidentiality of Alcohol and Drug Abuse Patient Records regulations: The Federal rules restrict any use of the information to criminally investigate or prosecute any alcohol or drug abuse patient.[facility] the event this information is protected by the Federal Confidentiality of Alcohol and Drug Abuse Patient Records regulations: The Federal rules restrict any use of the information to criminally investigate or prosecute any alcohol or drug abuse patient.[facility] the event this information is protected by the Federal Confidentiality of Alcohol and Drug Abuse Patient Records regulations: The Federal rules restrict any use of the information to criminally investigate or prosecute any alcohol or drug abuse patient.[facility] the event this information is protected by the Federal Confidentiality of Alcohol and Drug Abuse Patient Records regulations: The Federal rules restrict any use of the information to criminally investigate or prosecute any alcohol or drug abuse patient.[facility] FOR RECORDS PERTAINING TO PATIENTS WHO [...] BE BASED ON THE PRIMARY CLINICAL RECORDS. [facility]. provides no warranty or guarantee of the accuracy or completeness of information in this document.
[2024-10-20 20:30] VITALS: BP 121/76; PULSE 96
== END 2024-10-20 21:30 | disposition home or self-care (01) ==
LOC: US 02:03 → FBC 19:53
PROVIDERS: PCP Nurse Practitioner Family; Visit Provider Obstetrics & Gynecology
DX: O36.63X1 Maternal care for excessive fetal growth, third trimester, fetus 1 (principal); Z3A.37 37 weeks gestation of pregnancy
CPT/HCPCS: 76818

== ENCOUNTER 2024-10-23 20:29 | Outpatient (OUT) | payer OTHER, SELFPAY ==
--- OUTSIDE RECORDS SUMMARY | 2024-10-23 20:34 | XMS_ITS | CCD ---
Author Organization [facility] Care Team Providers Care Pan Reclaim Processor Name Role Phone Unknown, Unknown Unavailable Unavailable Unavailable Unavailable NO FAMILY, PHYSICIAN Primary Care Provider Unava ilable DO Addi Ortega Attending Provider [phone] Darwin Jones Unavailable DARWIN JONES Primary Care Physician Lilly Luke Unavailable SHIRLEY Jones Primary Care Provider [phone] SHIRLEY Jones Attending Provider DO Saad Valera Attending Provider [phone] Ofelia Hester Unavailable [facility] AMIE Darwin Unavailable Sima Ross Unavailable [facility] AMIE Darwin Unavailable [phone] SHIRLEY Jones Primary Care Provider SHIRLEY Hester Attending Provider SHIRLEY Jones Primary Care Provider SHIRLEY Hester Attending Provider Brain Way Attending Provider REQUEST, DR HOBSON LISTED Primary Care Unavaila ble SEAMUS ., DR YEUNG Attending Unavailable SEAMUS ., DR YEUNG Consulting Unavailable SEAMUS ., DR YEUNG Admitting Unavailable SHIRLEY Jones Primary Care Provider DO Addi Ortega [facility]ending [facility] Provider [phone] DO Jeovanny Quiros Emergency Provider [facility] Primary Care Provider DO Addi Ortega Attending Provider [facility]ending [facility] Primary Care Provider Brain Way Attending Provider [facility] Primary Care Provider [phone] Attending Provider [phone] RUBY WHITTINGTON Attending Unavailable FRANCY GAN Attending Unavailable [facility] Primary Care Provider [phone] Attending Provider [facility] Primary Care Provider [phone] Attending Provider [place] Attending Unavailable Gabriel Curtis Attending Unavailable Tyrone Rock Attending Unavailable [facility] Primary Care Provider DO Brain Way Attending Provider [facility] Attending Provider SHIRLEY Jones Primary Care Provider [phone] Attending Provider SHIRLEY Jones Primary Care Provider DO Brain Way Attending Provider Unavailable [facility] Darwin Jones APRN Primary Care Provider [facility] Addi SELLERS Attending Provider Brain Way DO Attending Provider SEAMUS, BRAIN R Referring Unavailable NO PCP, NO PCP Primary Care Unavailable HAYDEN REILLY P Attending Unavailable NO PCP, NO PCP Primary Care Unavailable HAYDEN REILLY P Referring Unavailable DARCY ENRIQUEZ Attending Unavailable SEAMUS, BRAIN R Referring Unavailable NO PCP, NO PCP Primary Care Unavailable [place] Darwin WATSON Primary Care Provider Brain Way DO Attending Provider [phone] Mary Ellen Bruce MD Attending Provider [phone] DO Gabriel Curtis Attending Unavailable [place] Attending Unavailable Rogelio Nath Attending Unavailable Rogelio Nath Admitting Unavailable Rogelio Nath Attending Unavailable Rogelio Nath Admitting Unavailable Flash Franco Attending Unavailable [place] Darwin WATSON Primary Care Provider [phone] DO Attending Provider [phone] No Pcp, No Pcp Primary Care Provider Unavailabl e Lesley Blanco Admitting Unavailable LazaroerCamilleLesley Doris Attending Unavailable Lesley Blanco Attending Unavailable Darwin Jones Primary Care Unavailable Seamus, Brain Attending Unavailable Seamus, Brain Admitting Unavailable [place]wood[place]win Primary Care Unavailable Seamus, Brain Attending Unavailable [...] Ellen Admitting Unavailable Seamus, Brain Attending Unavailable Eastt[place], Darwin Anaya Primary Care Unavailable Seamus, Brain Admitting Unavailable [place] Primary Care Unavailable Seamus, Brain Attending Unavailable Seamus, Brain Admitting Unavailable EasterDarwin cavazos Primary Care Unavailable Seamus, Brain Attending Unavailable Seamus, Brain Admitting Unavailable [place] Primary Care Unavailable Seamus, Brain Attending Unavailable Seamus, Brain Admitting Unavailable [facility], Darwin J Primary Care Unavailable Seamus, Brain Attending Unavailable Seamus, Brain Admitting Unavailable [place], Darwin J Primary Care Unavailable Seamus, Brain Attending Unavailable Seamus, Brain Admitting Unavailable [facility], Addi P Admitting Unavailable [facility], Addi P Attending Unavailable [facility], Darwin J Primary Care Unavailable STEF, MYA Attending Unavailable SEAMUS, BRAIN Attending Unavailable STEF, MYA Attending Unavailable SEAMUS, BRAIN Attending Unavailable STEF, MYA Attending Unavailable SEAMUS, BRAIN Attending Unavailable SEAMUS, BRAIN Attending Unavailable SEAMUS, BRAIN Attending Unavailable SEAMUS, BRAIN Attending Unavailable SEAMUS, BRAIN Attending Unavailable Allergies Allergy Classification Reported Allergen(s) Allergy Type Date of Onset Reaction(s) Facility (6 sources) No Known Medication Allergies; Translations: [No Known Medication Allergies] Propensity to adverse reactions (disorder) [facility] Repository Medications Current Medications Medication [...] tablet (2 sources) Opioid Agonist Start: 06-03-2021 [place] 325 mg-5 mg oral tablet 2 [...] day(s), # 20 tab(s), Refills(s) 0, Pharmacy: [facility], 170.2, cm, 09/29/23 10:44:00 EST, Height/Length [...] day(s), # 28 cap(s), Refills(s) 0, Pharmacy: [facility], 170.2, cm, 03/22/23 20:14:00 EDT, Height/Length Dosing, 113.5, kg, 03/22/23 20:14:00 EDT, Weight Dosing Start Date: 03/22/23 Stop Date: 03/29/23 Status: Ordered Start: 07-03-2021 take 1 capsule by mo uth twice daily Keflex 500 mg Cap 500 mg = 1 cap(s), Oral, BID, # 10 cap(s), Refills(s) 0, Pharmacy: [facility], 170, cm, 06/27/21 10:56:00 EST, Height/Length Dosing, [...] Ordered Start: 08-25-2024 take 1 capsule by [facility] once daily Levothyroxine 100 mcg [...] day(s), # 21 tab(s), Refills(s) 0, Pharmacy: [facility], 170.2, cm, 09/29/23 10:44:00 EST, Height/Length [...] Active take 1 capsule by mo [facility] once daily omeprazole (PRILOSEC) 20 mg capsule [...] Date: 02/18/22 Stop Date: 02/21/22 Status: Ordered Vgs859-Eobbqav Fumarate-Fa () 28-800 mg-mcg Tablet (20 sources) Start: 12-29-2020 Pvm211-Itnwhxm Fumarate-Fa () 28-800 mg-mcg Tablet Active TAB PO December 29, 2020 3:43pm Start: 12-29-2020 End: 10-07-2023 Bxa948-Aceahsn Fumarate-Fa ( ) 28-800 mg-mcg Tablet Discontinued TAB PO December 28, 2020 11:00pm October 07, 2023 6:06pm Start: 12-29-2020 End: 10-07-2023 Mrg465-Nshusgo Fumarate-Fa ( ) 28-800 mg-mcg Tablet Discontinued TAB PO December 29, 2020 12:00am October 07, 2023 7:06pm Start: 12-29-2020 Oxi351-Dbmxtan Fumarate-Fa () 28-800 mg-mcg Tablet Active TAB PO December 28, 2020 11:00pm Start: 12-29-2020 Bja586-Srfsejn Fumarate-Fa () 28-800 mg-mcg Tablet Active TAB PO December 29, 2020 12:00am -rhwr fum-folic ac-o m3 (One Daily ) (12 sources) Start: 08-25-2024 ipeqtq16-fcad fum-folic ac-om3 (One Daily ) Active 1 PKG PO Daily August 25, 2024 12:10pm Start: 05-11-2024 End: 08-25-2024 dkjixg44-grvk fum-folic ac-o m3 (One Daily ) Discontinued PO May 10, 2024 11:00pm August 25, 2024 12:11pm Start: 05-11-2024 xucboz26-jlhr fum-folic ac-om3 (One Daily ) Active PO May 10, 2024 11:00pm Start: 05-11-2024 svfifa70-nhgh fum-folic ac-om3 (One Daily ) Active PO May 11, 2024 12:00am MV-Min-Fe Fum-FA-DHA ( 1 PO) (20 sources) MV-Min- Fe Fum-FA-DHA ( 1 PO) Take 1 each by mouth Daily Active tg908-bfih-wtzuy acid ( 19) 29 mg iron- 1 mg tablet,chewable (2 sources) jr264-bvik-rvtrj acid ( 19) 29 mg iron- 1 [...] source) Vitamin B12 cyanocobalamin/f olic acid (VITAMIN I16-KUWYZ ACID) 1,000-400 mcg lozg Take by mouth [...] 05-26-2023 take 1 capsule by mo [facility] every twenty-four hours Phentermine HCl 37.5 MG [...] UA Negative Negative - 4(70) +++ mg/dL [facility] Blood, UA Positive Negative - 50 Dain/mcL [facility] Comment on above: small Clarity, UA Clear [facility] Color, UA Straw [facility] Glucose, UA Negative Negative - 2000(110) ++++ mg/dL [facility] Interpretation and review of laboratory results Abnormal [facility] Ketones, UA Negative Negative - 160(16) ++++ mg/dL [facility] Leukocytes, UA Positive Negative - 500+++ Chaparrita/mcL [facility] Comment on above: small Nitrite, UA Negative Negative - Positive [facility] pH, UA 7 5 - 9 [facility] Protein, UA Trace Negative - 2000(20) ++++ mg/dL [facility] Spec Grav, UA 1.02 1 - 1.03 [facility] Urobilinogen, UA 0.2 0.2 - 12 mg/dL [facility] ALL MISCELLANEOUS TESTon MISCELLANEOUS TEST COMMENT . [facility] Comment on above: Test Ordered: [id number] Strep Gp B Culture+Rflx Strep Gp B Culture+Rflx Negative CB Reference Range: Negative Centers for Disease Control and Prevention (CDC) and [place] [employer] of Obstetricians and Gynecologists (ACOG) guidelines [...] resistance to clindamycin is noted. Performed at: [facility] [id number] Fire Protection Equipment Technician: Alexis Ashton PhD, Phone: [phone] GBS CX WITH SUSEPTIBILITY [facility] Ambulatory Visit Summaryon 0 10-14-2024 Ambulatory Visit [...] Up with DARWIN JONES CNP When: Where: [address] [place] [address]- Medications What How Much When Instructions Unchanged [...] these instructions at home: Medicines ??? Take vfml-chp-fwflyqx and prescription medicines only as told by [...] ??? (more content not included)... Normal [facility] Office/Clini c Noteon 10-14-2024 Family [...] with voice recognition software. Occasional wrong-word or ???dpher-s-aaon??? substitutions may have occurred due to the [...] tx plan. Ordered: Influenza Type A&B POC 31565 Rapid Strep POC 42153 Strep Screen Culture 2. Exposure to strep throat (Z20.818: Contact with and (suspected) exposure to other bacterial communicable diseases) Rapid strep negative, will send for culture to confirm. 3. Exposure to influenza (Z20.828: Contact with and (suspected) exposure to other viral communicable diseases) Rapid Flu A/B negative. Congestion of nasal sinus (R09.81: Nasal congestion) Ordered: Influenza Type A&B POC 87350 Rapid Strep POC 38992 Follow-up With When Contact Information DARWIN JONES CNP [address] [facility] [place] [address]- Additional Instructions: Patient Education Pharyngitis, Hsek-fn-Vbke Problem List/Past Medical History Ongoing Anxiety Kidney [...] - De (more content not included)... Normal [facility] Comment on above: Result Comment: Elec tronically Signed By: Bella AGRCÍA, Etta\.br\Date and Time Signed: 10/14/24 09:31 EST US OB GROWTHon 10-13-2024 [place] [address] Ultrasound Report Signed Patient: TAWNYA HERRING MR#: [id number] : 1995 Acct:[id number] Age/Sex: 29 / F ADM Date: 10/13/24 Loc: US Attending Dr: Brain Way D.O. Ordering Physician: Brain Way D.O. Date of Service: 10/13/24 Procedure(s): US OB growth Accession Number(s): [id number] cc: Darwin Jones CARE SERVICES MANAGER; Brain Way D.O. [address] [address] Patient Name: TAWNYA HERRING MRN: [facility]:[id number] date: 1995 Sex: F Assigned Patient Location: [facility] Current Patient Location: Accession/Order Number: [id number] Exam Date: 10/13/2024 13:36 Report Date: 10/13/2024 [...] Aleisha Tapia M.D.10/13/2024 1:44 PM Dictation Location: [place] [address] Electronically authenticated by: [id number] Y Date: 10/13/2024 13:44 Dictated By: Aleisha Tapia M.D. Signed By: 10/13/24 1347 DD/ 1341 TD/TT: Scale Reclamation Tender: [facility] Radiology, Radiolognoel contreras MD - 10/13/2024 [place] [address] Ultrasound Report Signed Patient: TAWNYA HERRING MR#: [id number] : 1995 Acct:[id number] Age/Sex: 29 / F ADM Date: 10/13/24 Loc: US Attending Dr: Brain Way D.O. Ordering Physician: Brain Way D.O. Date of Service: 10/13/24 Procedure(s): US OB growth Accession Number(s): [id number] cc: Darwin Jones CARE SERVICES MANAGER; Brain Way D.O. The [place] [address] Patient Name: TAWNYA HERRING MRN: [facility]:[id number] date: 1995 Sex: F Assigned Patient Location: [facility] Current Patient Location: Accession/Order Number: [id number] Exam Date: 10/13/2024 13:36 Report Date: 10/13/2024 [...] Aleisha Tapia M.D.10/13/2024 1:44 PM Dictation Location: [facility] Electronically authenticated by: [id number] Y Date: 10/13/2024 13:44 Dictated By: Aleisha Tapia M.D. Signed By: 10/13/24 1347 DD/ 1344 TD/TT: Scale Reclamation Tender: [facility] Radiology Study observation (narrative) [facility] OB GROWTHOrdered By: Halima ologist Radiology on 10-13-2024 [facility] Work Phone: Urinalysis macro (dipstick) panel (U)on 10-10-2024 Bilirubin, UA Negative Negative - 4(70) +++ mg/dL [facility] Blood, UA Negative Negative - 50 Dain/mcL [facility] Clarity, UA Clear [facility] Color, UA Yellow [facility] Glucose, UA Negative Negative - 2000(110) ++++ mg/dL [facility] Interpretation and review of laboratory results Abnormal [facility] Ketones, UA Negative Negative - 160(16) ++++ mg/dL [facility] Leukocytes, UA Trace Negative - 500+++ Chaparrita/mcL [facility] Nitrite, UA Negative Negative - Positive [facility] pH, UA 7 5 - 9 [facility] Protein, UA Trace Negative - 1999(20) ++++ mg/dL [facility] Spec Grav, UA 1.015 1 - 1.03 [facility] Urobilinogen, UA 1.0 0.2 - 12 mg/dL [facility] OB BPP W NON-STRESS on 10-05-2024 The [place] [id number] Ultrasound Report Signed Patient: TAWNYA HERRING MR#: [id number] : 1995 Acct:[id number] Age/Sex: 29 / F ADM Date: Loc: [facility] 254-[address]: Brain Way D.O. Ordering Physician: Brain Way D.O. Date of Service: 10/04/24 Procedure(s): US OB BPP w non-stress Accession Number(s): [id number] cc: Darwin Jones CARE SERVICES MANAGER; Brain Way D.O. [place] [address] Patient Name: TAWNYA HERRING MRN: [facility]:[id number] date: 1995 Sex: F Assigned Patient Location: [facility] Current [facility] [facility] Accession/Order Number: [id number] Exam Date: 10/05/2024 10:54 Report Date: 10/05/2024 [...] Aleisha Tapia M.D.10/05/2024 10:58 AM Dictation Location: [facility] Electronically authenticated by: [id number] Y Date: 10/05/2024 10:58 Dictated By: Aleisha Tapia M.D. Signed By: 10/05/24 1239 DD/ 1058 TD/TT: Scale Reclamation Tender: [facility] Radiology, Radiolognoel contreras MD - 10/05/2024 [place] [address] Ultrasound Report Signed Patient: TAWNYA HERRING MR#: [id number] : 1995 Acct:[id number] Age/Sex: 29 / F ADM Date: Loc: [facility] 254-[address]: Brain Way D.O. Ordering Physician: Brani Way D.O. Date of Service: 10/04/24 Procedure(s): US OB BPP w non-stress Accession Number(s): [id number] cc: Darwin Jones CARE SERVICES MANAGER; Brain Way D.O. The [place] [address] Patient Name: TAWNYA HERRING MRN: [facility]:[id number] date: 1995 Sex: F Assigned Patient Location: [facility] Current Patient Location[place] [facility] Accession/Order Number: [id number] Exam Date: 10/05/2024 10:54 Report Date: 10/05/2024 10:58 At the request of: BRAIN WAY DO Procedure: US OB BPP w non-stress BIOPHYSICAL PROFILE: CLINICAL INFORMATION: decreased movement COMPARISON: 09/28/2024 There is a fetus in cephalic presentation. The reported gestational age is 35 weeks 0 days. The heart rate zeltntad796 beats per minute. FINDINGS: TONE: 1 or [...] PROFILE. BORDERLINE POLYHYDRAMNIOS. Impression dictated by: Aleisha Tapai M.D.10/05/2024 10:58 AM Dictation Location: [place] [address] Electronically authenticated by: [id number] Y Date: 10/05/2024 10:58 Dictated By: Aleisha Tapia M.D. Signed By: 10/05/24 1239 DD/ 1058 TD/TT: Scale Reclamation Tender: [facility] Radiology Study observation (narrative) [facility] US OB BPP W NON-STRESS Ordered By: Radiologist Radiology on 10-05-2024 [facility] Work Phone: Urinalysis macro (dipstick) panel (U)on 10-05-2024 Bilirubin, UA Negative Negative - 4(70) +++ mg/dL [facility] Blood, UA Negative Negative - 50 Dain/mcL [facility] Clarity, UA Clear [facility] Color, UA Yellow [facility] Glucose, UA Negative Negative - 1999(110) ++++ mg/dL [facility] Interpretation and review of laboratory results Abnormal [facility] Ketones, UA Negative Negative - 160(16) ++++ mg/dL [facility] Leukocytes, UA Positive Negative - 500+++ Chaparrita/mcL [facility] Comment on above: small Nitrite, UA Negative Negative - Positive [facility] pH, UA 7 5 - 9 [facility] Protein, UA Negative Negative - 2000(20) ++++ mg/dL [facility] Spec Grav, UA 1.02 1 - 1.03 [facility] Urobilinogen, UA 0.2 0.2 - 12 mg/dL [facility] US OB BPP W NON-STRESS on 09-29-[address] [address] Ultrasound Report Signed Patient: TAWNYA HERRING MR#: [id number] : 1995 Acct:[id number] Age/Sex: 29 / F ADM Date: 09/28/24 Loc: US Attending Dr: Brain Way D.O. Ordering Physician: Brain Way D.O. Date of Service: 09/28/24 Procedure(s): US OB BPP w non-stress Accession Number(s): [id number] cc: Darwin Jones CARE SERVICES MANAGER; Brain Way D.O. The [place] [id number] Patient Name: TAWNYA HERRING MRN: [facility]:[id number] date: 1995 Sex: F Assigned Patient Location: [facility] Current Patient Location: Accession/Order Number: [id number] Exam Date: 09/28/2024 19:56 Report Date: 09/29/2024 [...] Signed By: 09/29/24 0734 DD/ 0732 TD/TT: Scale Reclamation Tender: [facility] Radiology, Radiolognoel contreras MD - 09/29/2024 [place] [address] Ultrasound Report Signed Patient: TAWNYA HERRING MR#: [id number] : 1995 Acct:[id number] Age/Sex: 29 / F ADM Date: 09/28/24 Loc: US Attending Dr: Brain Way D.O. Ordering Physician: Brain Way D.O. Date of Service: 09/28/24 Procedure(s): US OB BPP w non-stress Accession Number(s): [id number] cc: Darwin Jones CARE SERVICES MANAGER; Brain Way D.O. [address] [address] Patient Name: TAWNYA HERRING MRN: [facility]:[id number] date: 1995 Sex: F Assigned Patient Location: [facility] Current Patient Location: Accession/Order Number: [id number] Exam Date: 09/28/2024 19:56 Report Date: 09/29/2024 [...] Signed By: 09/29/24 0734 DD/ 0732 TD/TT: Scale Reclamation Tender: [facility] Radiology Study observation (narrative) [facility] US OB BPP W NON-STRESS Ordered By: Radiologist Radiology on 09-29-2024 [facility] [employer] Work Phone: US OB BPP W NON-STRESS on 09-22-2024 [place] [address] Ultrasound Report Signed Patient: TAWNYA HERRING MR#: [id number] : 1995 Acct:[id number] Age/Sex: 29 / F ADM Date: 09/22/24 Loc: [facility] 252-[address]: Brain Way D.O. Ordering Physician: Brain Way D.O. Date of Service: 09/22/24 Procedure(s): US OB BPP w non-stress Accession Number(s): [id number] cc: Darwin Jones CARE SERVICES MANAGER; Brain Way D.O. The [place] [id number] Patient Name: TAWNYA HERRING MRN: [facility]:[id number] date: 1995 Sex: F Assigned Patient Location: [facility] Current Patient Location: [facility] Accession/Order Number: [id number] Exam Date: 09/22/2024 11:07 Report Date: 09/22/2024 [...] Signed By: 09/22/24 1138 DD/ 1135 TD/TT: Scale Reclamation Tender: [facility] Radiology Radiolognoel contreras MD - 09/22/2024 [place] [address] Ultrasound Report Signed Patient: TAWNYA HERRING MR#: [id number] : 1995 Acct:[id number] Age/Sex: 29 / F ADM Date: 09/22/24 Loc: [facility] 252-[address]: Brain Way D.O. Ordering Physician: Brain Way D.O. Date of Service: 09/22/24 Procedure(s): US OB BPP w non-stress Accession Number(s): [id number] cc: Darwin Jones CARE SERVICES MANAGER; Brain Way D.O. [place] [id number] Patient Name: TAWNYA HERRING MRN: [facility]:[id number] date: 1995 Sex: F Assigned Patient Location: [facility] Current Patient Location: [facility] Accession/Order Number: [id number] Exam Date: 09/22/2024 11:07 Report Date: 09/22/2024 [...] Signed By: 09/22/24 1138 DD/ 1135 TD/TT: Scale Reclamation Tender: [facility] Radiology Study observation (narrative) [facility] US OB BPP W NON-STRESS Ordered By: Radiologist Radiology on 09-22-2024 [facility] Work Phone: Thyroid Stimulating Hormoneo n 09-21-2024 TSH Qn 2.52 m[IU]/L Normal 0.45-5.33 [facility] Comment on above: Result Comment: PERF ORMED BY: [place] [address] PATHOLOGIST STEAM DRIER OPERATOR MIS SCHMIDT M.D. Performed By: #### T SH3 #### [address] Thyrotropin [Units/volume] i n Serum or PlasmaOrdered By: Brain Way on 09-21-2024 TSH Qn Thyrotropin [Units/v olume] in Serum or Plasma 0.45-5.33 [facility] Urinalysis macro (dipstick) panel (U)on 09-19-2024 Bilirubin, UA Positive Negative - 4(70) +++ mg/dL [facility] Comment on above: small Blood, UA Negative Negative - 50 Dain/mcL [facility] Clarity, [facility]A Clear [facility] Color, UA Wendy [facility] Glucose, UA Negative Negative - 2000(110) ++++ mg/dL [facility] Interpretation and review of laboratory results Abnormal [facility] Ketones, UA Positive Negative - 160(16) ++++ mg/dL [facility] Comment on above: trace Leukocytes, UA Negative Negative - 500+++ Chaparrita/mcL [facility] Nitrite, UA Negative Negative - Positive [facility] pH, UA 6 5 - 9 [facility] Protein, UA Positive Negative - 2000(20) ++++ mg/dL [facility] Comment on above: 30 Spec Grav, UA 1.025 1 - 1.03 [facility] Urobilinogen, UA 1.0 0.2 - 12 mg/dL [facility] BPP W NON-STRESS on 09-15-2024 [place] [address] Ultrasound Report Signed Patient: TAWNYA HERRING MR#: [id number] : 1995 Acct:[id number] Age/Sex: 29 / F ADM Date: 09/14/24 Loc: [facility] 254-[address]: Brain Way D.O. Ordering Physician: Brain Way D.O. Date of Service: 09/14/24 Procedure(s): US OB BPP w non-stress Accession Number(s): [id number] cc: Darwin Jones NP; Brain Way D.O. The [place] [id number] Patient Name: TAWNYA HERRING MRN: [facility]:[id number] date: 1995 Sex: F Assigned Patient Location: US Current Patient Location: Accession/Order Number: [id number] Exam Date: 09/14/2024 19:57 Report Date: 09/15/2024 [...] M.D. Signed By: 09/15/24616 DD/ 4 TD/TT: Scale Reclamation Tender: [facility] Radiology, Radiologi MD diane - 09/15/2024 [place] [address] Ultrasound Report Signed Patient: TAWNYA HERRING MR#: [id number] : 1995 Acct:[id number] Age/Sex: 29 / F ADM Date: 09/14/24 Loc: [facility] 254-[address]: Brain Way D.O. Ordering Physician: Brain Way D.O. Date of Service: 09/14/24 Procedure(s): US OB BPP w non-stress Accession Number(s): [id number] cc: Darwin Jones NP; Brain Way D.O. [place] [address] Patient Name: TAWNYA HERRING MRN: TB:[id number] date: 1995 Sex: F Assigned Patient Location: US Current Patient Location: Accession/Order Number: [id number] Exam Date: 09/14/2024 19:57 Report Date: 09/15/2024 [...] M.D. Signed By: 09/15/24616 DD/ 4 TD/TT: Scale Reclamation Tender: [facility] Radiology Study observation (narrative) [facility] US OB BPP W NON-STRESS Ordered By: Radiologist Radiology on 09-15-2024 [facility] Work Phone: [facility] echo transthoracicon [facility] echo transthoracic [place] [address] Echocardiogram Signed Patient: Tawnya Shay MR#: [id number] 29 : 1995 Acct:[id number] Age/Sex: 29 / F ADM Date: 09/14/24 Loc: EL Room: Type: [facility] Attending Dr: Mary Ellen Bruce MD [...] Bruce MD 09/14/[address] [facility] OB GROWTHon 09-11-2024 [place] [address] Ultrasound Report Signed Patient: TAWNYA HERRING MR#: [id number] : 1995 Acct:[id number] Age/Sex: 29 / F ADM Date: 09/11/24 Loc: US Attending Dr: Mya Finch Ordering Physician: Mya Finch Date of Service: 09/11/24 Procedure(s): US OB growth Accession Number(s): [id number] cc: Mya Finch; Darwin Jones NP [place] [address] Patient Name: TAWNYA HERRING MRN: [id number] date: 1995 Sex: F Assigned Patient Location: US Current Patient Location: US Accession/Order Number: [id number] Exam Date: 09/11/2024 10:00 Report Date: 09/11/2024 [...] Signed By: 09/11/24 1111 DD/ 1108 TD/TT: Scale Reclamation Tender: [facility] Radiology, Radiologi MD diane - 09/11/2024 [place] [address] Ultrasound Report Signed Patient: TAWNYA HERRING MR#: [id number] : 1995 Acct:[id number] Age/Sex: 29 / F ADM Date: 09/11/24 Loc: US Attending Dr: Mya Finch Ordering Physician: Mya Finch Date of Service: 09/11/24 Procedure(s): US OB growth Accession Number(s): [id number] cc: Mya Finch; Darwin oJnes NP The [address] [address] Patient Name: TAWNYA HERRING MRN: [facility]:[id number] date: 1995 Sex: F Assigned Patient Location: US Current Patient Location: US Accession/Order Number: [id number] Exam Date: 09/11/2024 10:00 Report Date: 09/11/2024 [...] Signed By: 09/11/24 1111 DD/ 1108 TD/TT: Scale Reclamation Tender: [facility] Radiology Study observation (narrative) [facility] OB GROWTHOrdered By: Halima ologleihgton Radiology on 09-11-2024 [facility] Work Phone: M Urineon 09-07-2024 Bacteria identified Cx [facility] (U) Microbiology PROCEDURE: Urine Culture [R1] SOURCE: U CleanCatch BODY SITE: COLLECTED DATE/TIME: 09/05/2024 05:25 EST RECEIVED DATE/TIME: 09/05/2024 10:11 EST START DATE/TIME: 09/05/2024 10:11 EST FREE TEXT SOURCE: Pham GALLAGHER, Rogelio Nath MD, Rogelio Robins FINAL REPORTS Final Report [] Verified Date/Time: 09/07/2024 10:23 EST <10,000 cfu/ml Mixed skin contaminants Performing Locations R1: This test was performed at: [facility], [address] [place] [address], [address]- , [place], [facility] Comment on above: Performed By: #### 2 [id number] #### [facility] [address] [place] [address] Urinalysis macro (dipstick) panel (U)on 09-07-2024 Bilirubin, UA Negative Negative - 4(70) +++ mg/dL [facility] Blood, UA Negative Negative - 50 Dain/mcL [facility] Clarity, UA Clear [facility] Color, UA Yellow [facility] Glucose, UA Negative Negative - 2000(110) ++++ mg/dL [facility] Interpretation and review of laboratory results Normal [facility] Ketones, UA Negative Negative - 160(16) ++++ mg/dL [facility] Leukocytes, UA Negative Negative - 500+++ Chaparrita/mcL [facility] Nitrite, UA Negative Negative - Positive [facility] pH, UA 8 5 - 9 [facility] Protein, UA Negative Negative - 2000(20) ++++ mg/dL [facility] Spec Grav, UA 1.015 1 - 1.03 [facility] Urobilinogen, UA 1.0 0.2 - 12 mg/dL [facility] ED Clinical Summaryon 2024 ED Clinical Summary ED Clinical Summary [address] [address] ED Clinical Summary Person Information Name: TAWNYA HERRING [facility] Age: 29 Years : 1995 Sex: Female Language: Burmese PCP: DARWIN JONES CNP Marital Status: Single Phone: [phone] Visit Id: Visit Reason: Headache; HEADACHE, FALL [...] 09/06/2024 16:26:55 09/06/2024 16:26:55 09/06/2024 16:26:55 ADDRESS: [address] [place] [phone] PHYS DOC NOTES: MEDICAL INFORMATION: Prescriptions Given: [...] day. PATIENT EDUCATION INFORMATION: Instructions: Concussion, Adult, Ulok-qc-Nyov Follow up: With: Address: When: DARWIN JONES [facility] [place] [address] [phone] [employer] ([employer] In 3 days 09/09/2024 Comments: Call to schedule a follow-up appointment with your primary care provider. Use Zofran as needed for nausea/vomiting. Return to the ED with any new or worsening symptoms. DIAGNOSIS: JEFFERSON (headache) Normal [facility] ED Note-Physicianon 09-06-19 ED Note-Physician ED Note-Physician [...] headache. She denies the use of any mpro-jyg-ujvlxnp medications for this. Patient denies any neck [...] [] Head CT not ordered by emergency care giver [] Head CT ordered for reasons other than trauma [] Patient is 18 or older, presenting with minor blunt head trauma. Head CT (including cosigned orders) was ordered by an emergency care giver for trauma because (select one or more):[SATISFIES MIPS PERFORMANCE]Reasons: [] Patient is 65 or older [] Patient GCS < 15 [] Patient has focal neurologic deficit [] Patient has severe headache [] Patient is vomiting [] Severe/dangerous mechanism of injury was identified(select one or more): []MVA with: patient ejection, of another passenger, rollover, speed > 40mph, airbag deployment, pile driver engineer or passenger on ATV or motorcycle [] [...] cosigned orders) was ordered by an emergency care giver for trauma, no indication specified.[DOES NOT SATISFY MIPS PERFORMANCE] Medical Decision Making Patient is a 29-year-old female with a history of anxiety who presents to the ED 30 weeks with complaints of a headache following a syncope episode from a seated position yesterday. Patient is hemodynamically st (more content not included)... Normal [facility] Comment on above: Result Comment: Elec tronically Signed By: Lashon Tee PA-C\.br\Date and Time Signed: 09/06/24 16:20 EST\.br\Electronically Co-Signed By: Lashon Tee PA-C\.br\Date and Time Co-Signed: 09/06/24 16:21 EST\.br\Electronically Co-Signed By: Flash Franco DO\.br\Date and Time Co-Signed: 09/06/24 19:47 EST ED Patient Summaryon 025 ED Patient Summary ED Patient Summary [place] [id number] Patient Discharge Instructions Person Information Name: TAWNYA HERRING Age: 29 Years Arrival Date: 09/06/2024 13:57:18 Discharge Diagnosis: JEFFERSON (headache) Primary Care Physician: DARWIN JONES CNP Provider Information Primary Provider: Flash Franco DO Advanced Support Associate:Lashon Tee PA-C The exam and treatment you received in the Emergency Department were for an urgent problem and are not intended as complete care. It is important that you follow up with a doctor, nurse practitioner, or physician???s preschool teacher assistant for ongoing care. If your symptoms [...] Follow-up Instructions: With: Address: When: DARWIN JONES [facility] [place] [address] [phone] [employer] () In 3 days 09/09/2024 Comments: Call to schedule a follow-up appointment with your primary care provider. Use Zofran as needed for nausea/vomiting. Return to the ED with any new or worsening symptoms. In the event that this physician does not participate in your insurance network, please consult with your insurance company to find a nearby participating provider. Patient Education Materials: Concussion, Adult, Nmgc-hl-Lnua A MESSAGE TO ALL PATIENTS REGARDING OPIOIDS PRESCRIPTION OPIOIDS: WHAT YOU NEED TO KNOW Prescription opioids can be used to help relieve lzpgizrx-wl-moebcj pain and are often prescribed following a [...] (www.fda.gov/Drugs/Resourc esForYou). (more content not included)... Normal [facility] BLOOD BANKOrdered By: Estefany Morillo on 09-05-2024 Fibronectin. Ql (Vag fld) Negative 1 (09/05/24 5:47 AM) Normal [facility] Man Sero Comment [...] Anion gap [Moles/Vol] 16 mmol/L Normal 6-16 [facility] Comment on above: Performed By: #### 2 [id number] #### [facility] [address] [place] [address] Calcium [Mass/Vol] 8.5 mg/dL Low 8.9-11.1 [facility] Comment on above: Performed By: #### 2 [id number] #### [facility] [address] [place] [address] Chloride [Moles/Vol] 108 mmol/L Normal 101-111 [facility] Comment on above: Performed By: #### 2 [id number] #### [facility] [address] [place] [address] CO2 [Moles/Vol] 17 mmol/L Low 21-31 [facility] Comment on above: Performed By: #### 2 [id number] #### [facility] [address] [place] [address] Creatinine [Mass/Vol] 0.4 mg/dL Low 0.5-1.3 [facility] Comment on above: Performed By: #### 2 051365 #### [facility] [address] [place] [address] Glucose [Mass/Vol] 103 mg/dL Normal 55-199 [facility] Comment on above: Performed By: #### 2 162503 #### [facility] [address] [place] [address] Potassium [Moles/Vol] 3.6 mmol/L Normal 3.5-5.3 [facility] Comment on above: Performed By: #### 2 131990 #### [facility] [address] [place] [address] Sodium [Moles/Vol] 137 mmol/L Normal 135-145 [facility] Comment on above: Performed By: #### 2 388141 #### [facility] [address] [place] [address] Urea nitrogen [Mass/Vol] 9 mg/dL Normal 5-21 [facility] Comment on above: Performed By: #### 2 333339 #### [facility] [address] [place] [address] Urea nitrogen/Creatinine [Mass ratio] 22 No Units High 10-20 [facility] Comment on above: Performed By: #### 2 951545 #### [facility] [address] [place] [address] CBC w/ Auto Diffon 5 Basophils/100 WBC (Bld) 0.4 % Normal 0.0-2.0 [facility] Comment on above: Performed By: #### 2 [id number] #### [facility] [address] [place] [address] Basophils/Leukocytes Auto (Bld) [Pure # fraction] 0.1 E9/L Normal 0.0-0.2 [facility] Comment on above: Performed By: #### 2 275792 #### [facility] [address] [place] [address] Eosinophils (Bld) [#/Vol] 0.0 E9/L Normal 0.0-0.5 [facility] Comment on above: Performed By: #### 2 077595 #### [facility] [address] [place] [address] Eosinophils/100 WBC (Bld) 0.3 % Normal 0.0-8.0 [facility] Comment on above: Performed By: #### 2 [id number] #### [facility] [address] [place] [address] Erythrocyte distribution width (RBC) [Ratio] 12.7 % Normal 10.9-14.2 [facility] Comment on above: Performed By: #### 2 843457 #### [facility] [address] [place] [address] Hematocrit (Bld) [Volume fraction] 37.4 % Normal 34.0-46.0 [facility] Comment on above: Performed By: #### 2 067714 #### [facility] [address] [place] [address] Hemoglobin (Bld) [Mass/Vol] 13.2 g/dL Normal 12.0-16.0 [facility] Comment on above: Performed By: #### 2 033931 #### [facility] [address] [place] [address] Lymphocytes (Bld) [#/Vol] 1.1 E9/L Normal 1.0-4.0 [facility] Comment on above: Performed By: #### 2 068219 #### [facility] [address] [place] [address] Lymphocytes/100 WBC (Bld) 7.0 % Low 14.0-50.0 [facility] Comment on above: Performed By: #### 2 783470 #### [facility] [address] [place] [address] MCH (RBC) [Entitic mass] 33.0 pg Normal 27.0-34.0 [facility] Comment on above: Performed By: #### 2 494317 #### [facility] [address] [place] [address] MCHC (RBC) [Mass/Vol] 35.4 g/dL Normal 31.4-36.0 [facility] Comment on above: Performed By: #### 2 823106 #### [facility] [address] [place] [address] MCV (RBC) [Entitic vol] 93.3 fL Normal 80.0-100.0 [facility] Comment on above: Performed By: #### 2 781019 #### [facility] [address] [place] [address] Monocytes (Bld) [#/Vol] 0.7 E9/L Normal 0.2-1.0 [facility] Comment on above: Performed By: #### 2 [id number] #### [facility] [address] [place] [address] Neutrophils (Bld) [#/Vol] 13.7 E9/L High 2.0-7.5 [facility] Comment on above: Performed By: #### 2 898940 #### [facility] [address] [place] [address] Neutrophils/100 WBC (Bld) 87.6 % High 36.0-75.0 [facility] Comment on above: Performed By: #### 2 906764 #### [facility] [address] [place] [address] Platelet 324.0 E9/L Normal 150.0-500. 0 [facility] Comment on above: Performed By: #### 2 080824 #### [facility] [address] [place] [address] Platelet mean volume (Bld) [Entitic vol] 8.3 fL Normal 6.4-10.8 [facility] Comment on above: Performed By: #### 2 983659 #### [facility] [address] [place] [address] RBC (Bld) [#/Vol] 4.0 E12/L Low 4.3-5.9 [facility] Comment on above: Performed By: #### 2 [id number] #### [facility] [address] [place] [address] WBC corrected for nucl RBC Auto (Bld) [#/Vol] 15.6 E9/L High 4.0-11.0 [facility] Comment on above: Performed By: #### 2 [id number] #### [facility] [address] [place] [address] CHEMISTRYOrdered By: SYSTEM SYSTEM on 09-05-2024 Albumin [...] High Sensitivity Troponin I Instructions For Use, Nathne Galleon, March 2018) Urea nitrogen [Mass/Vol] 9 mg/dL Normal 5 - 21 mg/dL [facility] Urea nitrogen/Creatinine [Mass ratio] 22 mg/mg High 10 - 20 [facility] ED Clinical Summaryon 2024 ED Clinical Summary ED Clinical Summary [place] [address] ED Clinical Summary Person Information Name: TAWNYA HERRING [facility] Age: 29 Years : 1995 Sex: Female Language: Burmese PCP: DARWIN JONES CNP Marital Status: Single Phone: [phone] Visit Id: Visit Reason: Abdominal pain - ; Vomiting - ; Syncope/Near syncope; PASSED OUT HIT HEAD,NAUSEA DIARRHEA VOMITING 30 WKS PREG Speciality: Acuity: 2 Enc Type: Emergency Med Service: Emergency Arrival: 09/05/2024 03:02:46 Discharge: LOS: 000 01:33 Checkin: 09/05/2024 03:02:46 Checkout: 09/05/2024 04:35:45 Dispo Type: Admitted as IP to this [facility] EVENTS: Event Name Event Status Request [...] 09/05/2024 04:35:45 09/05/2024 04:35:45 09/05/2024 04:35:45 ADDRESS: [address] [place] [phone] PHYS DOC NOTES: MEDICAL INFORMATION: Prescriptions Given: Medications to Continue with No Changes Other Medications citalopram (CeleXA 20 mg Tab) 1 Tablets By Mouth every day. PATIENT EDUCATION INFORMATION: Instructions: Syncope, Adult, Oswg-cc-Hxtb; Nausea and Vomiting, Adult, Ihpx-ye-Sbkr; Diarrhea, Adult, Atfw-gx-Qync; Dehydration, Adult, Xfaw-su-Rzyd Follow up: With: Address: When: DARWIN J[place]ES[address] [place] [address] [phone] [employer] (1) In 3 days 09/08/2024 Comments: Please follow-up with Dr. Way for further evaluation management. Please return to the ED for any new or worsening symptoms. DIAGNOSIS: Dehydration; Diarrhea, unspecified; Nausea, vomiting, and diarrhea; Syncope Normal [facility] ED Note-Nursingon 09-05-2024 ED Note-Nursing ED Note-Nursing OB at bedside Normal [facility] ED Note-Physicianon 09-05-19 ED Note-Physician ED Note-Physician [...] [] [facility] Data External documents reviewed: [] My EKG [...] Dayna 50 mL [F] 50 mL + omftsx01Lwucxeanv [F] 25 mg, IV Piggyback Disposition Plan [...] Use, 03/12/2020 (more content not included)... Normal [facility] Comment on above: Result Comment: Elec tronically Signed By: Gabriel Curtis DO\.br\Date and Time Signed: 09/05/24 04:22 EST ED Patient Summaryon 025 ED Patient Summary ED Patient Summary [place] [id number] Patient Discharge Instructions Person Information Name: TAWNYA HERRING Age: 29 Years Arrival Date: 09/05/2024 03:02:46 Discharge Diagnosis: Dehydration; Diarrhea, unspecified; Nausea, vomiting, and diarrhea; Syncope Primary Care Physician: DARWIN JONES CNP Provider Information Primary Provider: Gabriel Curtis DO Advanced Support Associate:None The exam and treatment you received in the Emergency Department were for an urgent problem and are not intended as complete care. It is important that you follow up with a doctor, nurse practitioner, or physician???s preschool teacher assistant for ongoing care. If your symptoms [...] Follow-up Instructions: With: Address: When: DARWIN JONES [address] [place] [phone] Business (1) In 3 days 09/08/2024 Comments: Please follow-up with Dr. Way for further evaluation management. Please return to the ED for any new or worsening symptoms. In the event that this physician does not participate in your insurance network, please consult with your insurance company to find a nearby participating provider. Patient Education Materials: Syncope, Adult, Ruig-zm-Mivq; Nausea and Vomiting, Adult, Okgo-vm-Ixqq; Diarrhea, Adult, Hfhb-tp-Moki; Dehydration, Adult, Dwiy-bs-Cadd A MESSAGE TO ALL PATIENTS REGARDING OPIOIDS PRESCRIPTION OPIOIDS: WHAT YOU NEED TO KNOW Prescription opioids can be used to help relieve xqxacxsp-fh-wfajxr pain and are often prescribed following a [...] down t (more content not included)... Normal [facility] Extra Blueon 09-05-2024 Tube Collected Plasma Yes Invalid Interpretation Code [facility] Comment on above: Performed By: #### 1 [id number] #### [facility] [address] [place] [address] FFNon 09-05-2024 Fibronectin. Ql (Vag fld) Negative Normal [facility] Comment on above: Result Comment: In S [...] the antibody-antigen reaction. Performed By: #### 1 [id number] #### [facility] [address] [place] [address] HEMATOLOGYOrdered By: SYSTEM SYSTEM on 09-05-2024 Basophils/100 [...] 09-05-2024 Albumin [Mass/Vol] 3.8 g/dL Normal 3.3-5.0 [facility] Comment on above: Performed By: #### 2 927894 #### [facility] [address] [place] [address] Albumin/Globulin (S) [Mass conc ratio] 1.5 Normal 1.1-2.2 [facility] Comment on above: Performed By: #### 2 177253 #### [facility] [address] [place] [address] ALP [Catalytic activity/Vol] 80 Int._Unit/L Normal 21-98 [facility] Comment on above: Performed By: #### 2 081123 #### [facility] [address] [place] [address] ALT No additional P-5'-P [Catalytic activity/Vol] 20 Int._Unit/L Normal 6-46 [facility] Comment on above: Performed By: #### 2 314173 #### [facility] [address] [place] [address] AST [Catalytic activity/Vol] 15 Int._Unit/L Normal 5-43 [facility] Comment on above: Performed By: #### 2 136306 #### [facility] [address] [place] [address] Bilirubin [Mass/Vol] 0.6 mg/dL Normal 0.0-1.1 [facility] Comment on above: Performed By: #### 2 637536 #### [facility] [address] [place] [address] Bilirubin.direct [Mass/Vol] 0.1 mg/dL Normal 0.0-0.4 [facility] Comment on above: Performed By: #### 2 691888 #### [facility] [address] [place] [address] Bilirubin.indirect [Mass or moles/Vol] 0.5 mg/dL Normal 0.1-0.9 [facility] Comment on above: Performed By: #### 2 187796 #### [facility] [address] [place] [address] Globulin (S) [Mass/Vol] 2.6 g/dL Normal 1.4-4.0 [facility] Comment on above: Performed By: #### 2 134887 #### [facility] [address] [place] [address] Protein [Mass/Vol] 6.4 g/dL Normal 6.0-7.8 [facility] Comment on above: Performed By: #### 2 436419 #### [facility] [address] [place] [address] Influenza A&B Agon Influenzae A Ag Negative Normal Negative [facility] Comment on above: Performed By: #### 1 [id number] #### [facility] [address] [place] [address] Influenzae B Ag Negative Normal Negative [facility] Comment on above: Result Comment: Test sensitivity and specificity vary for age group, specimen type, antigen types, and prevalence of disease. Test results must be evaluated in conjunction with other clinical data available to the physician. Individuals who received nasally administered Influenza A vaccine may have positive test results up to 3 days after vaccination. Performed By: #### 1 [id number] #### [facility] [address] [place] [address] Inpatient Clinical Summaryon 09-05-2024 Inpatient Clinical Summary Inpatient Clinical Summary [address] [address] Clinical Summary Person Information Name: TAWNYA HERRING [facility] Age: 29 Years : 1995 Sex: Female PCP: DARWIN JONES CNP Marital Status: Single Phone: [phone] Race: White Ethnicity: Non- or Language: Burmese Visit Id: Visit Reason: Abdominal pain - ; Vomiting - ; Syncope/Near syncope; PASSED OUT HIT HEAD,NAUSEA DIARRHEA VOMITING 30 WKS PREG Speciality: Acuity: Obs Enc Type: Observation Med Service: Obstetrics Arrival: 09/05/2024 03:02:46 Discharge: 09/05/2024 15:50:00 Dispo Type: Home (Routine DC) Address: [address] [place] [address] [phone] Provider Notes: Diagnosis: Dehydration; Diarrhea, unspecified; Nausea, [...] range between ( 80.0 and 100.0 ) Mcintosh Auto: 4.7 % -- Normal range between ( 4.0 and 14.0 ) MPV: 8.3 fL -- Normal range between ( 6.4 and 10.8 ) Neutro Auto: 87.6 % -- Normal range between ( 36.0 and 75.0 ) Platelet: 324.0 E9/L -- Normal range between ( 150.0 and 500.0 ) WBC: 15.6 E9/L -- Normal range between ( 4.0 and 11.0 ) Mcintosh Absolute: 0.7 E9/L -- Normal range between [...] 38.19 kg/m2 (more content not included)... Normal [facility] Inpatient Patient Summaryon 09-05-2024 Inpatient Patient Summary Inpatient Patient Summary [place] [id number] Patient Discharge Instructions PERSON INFORMATION Name: TAWNYA HERRING Date of : 1995 Current Date: 09/05/2024 16:15:55 PHYSICIANS Admitting Physician: Rogelio Nath MD Primary Care Physician: DARWIN JONES CNP PCP Phone Number: [phone] Comment: Discharge Diagnosis: Dehydration; Diarrhea, unspecified; Nausea, vomiting, and diarrhea; Syncope Condition at Discharge: Stable TAWNYA HERIRNG has been given the following list of [...] Follow up: With: Address: When: [facility], [address] [place] [address] [place] [address] Business (1) In 2 days 09/07/2024 Comments: Call 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 supervisory aide prescriptions at [facility] With: [facility]: [facility] [address] [facility] [place] [address] [phone] Business (1) In 3 days 09/08/2024 Comments: [...] until you feel better. Medicines ??? Take zovk-xgq-quxarpi and prescription medicines only as told by [...] ? Flexing (more content not included)... Normal [facility] Lipase Levelon 09-05-2024 Lipase [Catalytic activity/Vol] 18 U/L Normal 13-58 [facility] Comment on above: Performed By: #### 2 [id number] #### [facility] [address] [place] [address] MICRO OTHER TESTSOrdered By: Barrington Maxwell on 09-05-2024 Influenzae A Ag Negative (09/05/24 3:34 AM) Normal Negative [facility] Man Sero Influenzae B Ag Negative 3 (09/05/24 3:34 AM) Normal Negative [facility] Man Sero Comment [...] Troponin HS 2.70 pg/mL Low 10.10-27.1 0 [facility] Comment on above: Result Comment: The 95% CI (Confidence Interval) PPV (Positive Predictive Value) for myocardial infarction in females is 38 pg/mL, in males 51 pg/mL. The results should be used in conjunction with clinical conditions of myocardial infarction. (Access High Sensitivity Troponin I Instructions For Use, Nathen Jerome, March 2018) Performed By: #### 1 [id number] #### [facility] [address] [place] [address] UA with Cult Rflxon 09-05-19 25 Bacteria Auto Ql (U) Trace Normal Trace Fish er [facility] Comment on above: Performed By: #### 4 [id number] #### [facility] [address] [place] [address] Bilirubin Ql (U) 1+ mg/dL Abnormal Negative [facility] Comment on above: Performed By: #### 4 [id number] #### [facility] [address] [place] [address] Clarity (U) Turbid Abnormal Clear [facility] Comment on above: Performed By: #### 4 [id number] #### [facility] [address] [place] [address] Color (U) Dark-Yellow Abnormal Yellow [facility] Comment on above: Result Comment: Micr oscopic readings are only performed on those samples that meet specific criteria set forth by [facility]. Performed By: #### 4 [id number] #### [facility] [address] [place] [address] Epithelial cells.squamous Auto (Urine sed) [#/Area] 5-8 Invalid Interpretation Code [facility] Comment on above: Performed By: #### 4 [id number] #### [facility] [address] [place] [address] Glucose Ql (U) Trace Abnormal Negative [facility] Comment on above: Performed By: #### 4 [id number] #### [facility] [address] [place] [address] Hemoglobin Auto test strip (U) [Mass/Vol] Negative Normal Negative [facility] Comment on above: Performed By: #### 4 [id number] #### [facility] [address] [place] [address] Ketones Auto test strip Ql (U) 1+ mg/dL Abnormal Negative [facility] Comment on above: Performed By: #### 4 [id number] #### [facility] [address] [place] [address] Leukocyte esterase Auto test strip Ql (U) 25 Chaparrita/uL Normal Negative [facility] Comment on above: Performed By: #### 4 [id number] #### [facility] [address] [place] [address] Mucus Auto Ql (U) 4+ [id number] Abnormal Negative [facility] Comment on above: Performed By: #### 4 [id number] #### [facility] [address] [place] [address] Nitrite Auto test strip Ql (U) 1+ mg/dL Abnormal Negative [facility] Comment on above: Performed By: #### 4 [id number] #### [facility] [address] [place] [address] pH (U) 5.5 [pH] Invalid Interpretation Code 5.0-9.0 [facility] Comment on above: Performed By: #### 4 [id number] #### [facility] [address] [place] [address] Protein Ql (U) 1+ mg/dL Abnormal Negative [facility] Comment on above: Performed By: #### 4 [id number] #### [facility] [address] [place] [address] RBC Ql (U) 0-3 Normal 0-3 [facility] Comment on above: Performed By: #### 4 [id number] #### [facility] [address] [place] [address] Specific gravity (U) [Rel density] 1.029 Invalid Interpretation Code 1.005-1.03 0 [facility] Comment on above: Performed By: #### 4 [id number] #### [facility] [address] [place] [address] Urobilinogen (U) [Mass/Vol] 2 mg/dL Abnormal Negative [facility] Comment on above: Performed By: #### 4 [id number] #### [facility] [address] [place] [address] WBC Auto (Urine sed) [#/Area] 0-5 Normal 0-5 [facility] Comment on above: Performed By: #### 4 [id number] #### [facility] [address] [place] [address] Type of Urine collection method Clean Catch Normal [facility] Comment on above: Performed By: #### 4 [id number] #### [facility] [address] [place] [address] URINALYSISOrdered By: SYSTEM SYSTEM on 09-05-2024 Bacteria [...] that meet specific criteria set forth by [facility]. Epithelial cells.squamous Auto (Urine [...] 2 mg/dL Invalid Interpretation Code Negativemg /dL [facility] UA Auto SS WBC Auto (Urine sed) [#/Area] 0-5 graded/HPF Normal 0-5graded/ HPF [facility] UA Auto SS URINALYSISOrdered By: Rica Islas on 09-05-2024 UA Spec Desc Clean Catch (09/05/24 5:25 AM) Normal [facility] UA Auto SS eGFRon 09-05-2024 eGFR 138 mL/min/1.73 m2 Normal >=59 [facility] Comment on above: Performed By: #### 1 [id number] #### [facility] [address] [place] [address] ALL CBC WITH AUTO DIFFon BASOPHILS ABSOLUTE AUTO 0 [facility] Basophils/100 WBC (Bld) 0.2 % 0.2 - 2.0 % [facility] Eosinophils/100 WBC (Bld) 0.8 % Low 0.9 - 7.0 % [facility] Erythrocyte distribution width (RBC) [Ratio] 12.1 % 11.0 - 15.0 % [facility] Hematocrit (Bld) [Volume fraction] 33.9 % Low 36.0 - 48.0 % [facility] Hemoglobin (Bld) [Mass/Vol] 11.6 g/dL Low 12.0 - 16.0 g/dL [facility] IMMATURE GRANULOCYTES ABS AUTO 0.03 [facility] Immature granulocytes/100 WBC (Bld) 0.3 % 0.0 - 0.5 % [facility] Interpretation and review of laboratory results Abnormal [facility] LYMPHOCYTES ABSOLUTE AUTO 1.8 [facility] Lymphocytes/100 WBC (Bld) 19.8 % Low 20.5 - 60.0 % [facility] MCH (RBC) [Entitic mass] 32.9 pg 26.7 - 34.0 pg [facility] MCHC (RBC) [Mass/Vol] 34.2 g/dL 29.9 - 35.2 g/dL [facility] MCV (RBC) [Entitic vol] 96 fL 81.0 - 99.0 fL [facility] MONOCYTES ABSOLUTE AUTO 0.5 [facility] Monocytes/100 WBC (Bld) 5.4 % 1.7 - 12.0 % [facility] NEUTROPHILS ABSOLUTE AUTO 6.6 High [facility] Neutrophils/100 WBC (Bld) 73.5 % 43.0 - 75.0 % [facility] Platelet mean volume (Bld) [Entitic vol] 10.2 fL 9.5 - 13.5 fL [facility] TBH EO # 0.1 [facility] PLT 287 [facility] RBC 3.53 Low [facility] WBC 9 [facility] Basophils Auto (Bld) [#/Vol] on 08-25-2024 Basophils (Bld) [#/Vol] Automated basophil count 0.0-0.1 [facility] Basophils/100 WBC Auto (Bld) on 08-25-2024 Basophils/100 WBC (Bld) Automated basophil % 0.2-2.0 [facility] Eosinophils/100 WBC Auto (Bl d)on 08-25-2024 Eosinophils/100 WBC (Bld) Automated eosinophil % Low 0.9-7.0 [facility] Erythrocyte distribution wid th Auto (RBC) [Ratio]on 08-25-2024 Erythrocyte distribution width (RBC) [Ratio] Erythrocyte distribution width [Ratio] by Automated count 11.0-15.0 [facility] FPG ECG *CARDIOLOGY ONLY*on 08-25-2024 FPG ECG *CARDIOLOGY ONLY* [place] [address] Electrocardiograph Report Signed Patient: Tawnya Herring MR#: [id number] 29 : 1995 Acct:[id number] Age/Sex: 29 / F ADM Date: 08/25/24 Loc: [facility] Room: Type: [facility] Attending Dr: Mary Ellen Bruce MD [...] Normal ECG Confirmed by Mary Ellen Bruce ([id number]) on 08/25/2024 1:42:57 PM Referred By: Electronically Signed By: Mary Ellen Bruce Transcribed By: MUS Signed By Mary Ellen Bruce MD 5 1342 Normal [facility] Hematocrit Auto (Bld) [Volum e fraction]on 08-25-2024 Hematocrit (Bld) [Volume fraction] Hematocrit [Volume Fraction] of Blood by Automated count Low 36.0-48.0 [facility] Hemoglobin [Mass/volume] in Bloodon 08-25-2024 Hemoglobin (Bld) [Mass/Vol] Hemoglobin [Mass/volume] in Blood Low 12.0-16.0 [facility] - Chemistry and C hemistry - challengeon 08-25-2024 Glucose [Mass/Vol] 131 mg/dL High <130 [facility] - Hematology and Cell countson 08-25-2024 Immature granulocytes/100 WBC (Bld) 0.3 % 0.0-0.5 [facility] Leukocytes [#/volume] correc hamilton for nucleated erythrocytes in Blood by Automated counon 08-25-2024 WBC corrected for nucl RBC Auto (Bld) [#/Vol] Leukocytes [#/volume] corrected for nucleated erythrocytes in Blood by Automated coun 4.0-11.0 [facility] Lymphocytes Auto (Bld) [#/Vo l]on 08-25-2024 Lymphocytes (Bld) [#/Vol] Lymphocytes [#/volume] in Blood by Automated count 1.2-3.8 [facility] Lymphocytes/100 WBC Auto (Bl d)on 08-25-2024 Lymphocytes/100 WBC (Bld) Lymphocytes/100 leukocytes in Blood by Automated count Low 20.5-60.0 [facility] MCH Auto (RBC) [Entitic mass ]on 08-25-2024 MCH (RBC) [Entitic mass] MCH [Entitic mass] by Automated count 26.7-34.0 [facility] MCHC Auto (RBC) [Mass/Vol]on 08-25-2024 MCHC (RBC) [Mass/Vol] MCHC [Mass/volume] by Automated count 29.9-35.2 [facility] MCV Auto (RBC) [Entitic vol] on 08-25-2024 MCV (RBC) [Entitic vol] MCV [Entitic volume] by Automated count 81.0-99.0 [facility] Monocytes Auto (Bld) [#/Vol] on 08-25-2024 Monocytes (Bld) [#/Vol] Automated blood monocyte count 0.3-0.8 [facility] Monocytes/100 WBC Auto (Bld) on 08-25-2024 Monocytes/100 WBC (Bld) Automated monocyte % 1.7-12.0 [facility] Neutrophils Auto (Bld) [#/Vo l]on 08-25-2024 Neutrophils (Bld) [#/Vol] Neutrophils [#/volume] in Blood by Automated count High 1.4-6.5 [facility] Neutrophils/100 WBC Auto (Bl d)on 08-25-2024 Neutrophils/100 WBC (Bld) Automated neutrophil % 43.0-75.0 [facility] No Panel Informationon 08-25 Eosinophils # (Auto) 0.1 10 3/uL 0.0-0.7 [facility] Immature Granulocyte # (Auto) 0.03 10 3/uL 0.00-0.03 [facility] Platelet mean volume Auto (B ld) [Entitic vol]on 08-25-2024 Platelet mean volume (Bld) [Entitic vol] Platelet mean volume [Entitic volume] in Blood by Automated count 9.5-13.5 [facility] Platelets Auto (Bld) [#/Vol] on 08-25-2024 Platelets (Bld) [#/Vol] Platelets [#/volume] in Blood by Automated count 150-450 [facility] RBC Auto (Bld) [#/Vol]on RBC (Bld) [#/Vol] Erythrocytes [#/volu me] in Blood by Automated count Low 4.20-5.40 [facility] Urinalysis macro (dipstick) panel (U)on 08-23-2024 Bilirubin, UA Negative Negative - 4(70) +++ mg/dL [facility] Healthcare Blood, UA Negative Negative - 50 Dain/mcL [facility] Clarity, UA Clear [facility] Color, UA Yellow [facility] Glucose, UA Negative Negative - 1999(110) ++++ mg/dL [facility] Interpretation and review of laboratory results Abnormal [facility] Ketones, UA Negative Negative - 160(16) ++++ mg/dL [facility] Leukocytes, UA Positive Negative - 500+++ Chaparrita/mcL [facility] Comment on above: small Nitrite, UA Negative Negative - Positive [facility] pH, UA 7 5 - 9 [facility] Protein, UA Negative Negative - 1999(20) ++++ mg/dL [facility] Spec Grav, UA 1.02 1 - 1.03 [facility] Urobilinogen, UA 0.2 0.2 - 12 mg/dL [facility] Thyroid Stimulating Hormoneo n 07-31-2024 TSH Qn 2.07 m[IU]/L Normal 0.45-5.33 [facility] Comment on above: Result Comment: PERF ORMED BY: [facility] [address] [place] [address] PATHOLOGIST STEAM DRIER OPERATOR MIS SCHMIDT M.D. Performed By: #### T SH3 ####[facility] [id number] [place] [address] [facility] Thyrotropin [Units/volume] i n Serum or PlasmaOrdered By: Brain Way on 07-31-2024 TSH Qn Thyrotropin [Units/v olume] in Serum or Plasma 0.45-5.33 [facility] Urinalysis macro (dipstick) panel (U)on 07-11-2024 Bilirubin, UA Negative Negative - 4(70) +++ mg/dL [facility] Blood, UA Negative Negative - 50 Dain/mcL [facility] Clarity, UA Clear [facility] Color, UA Yellow [facility] Glucose, UA Negative Negative - 1999(110) ++++ mg/dL [facility] Interpretation and review of laboratory results Abnormal [facility] Ketones, UA Negative Negative - 160(16) ++++ mg/dL [facility] Leukocytes, UA Trace Negative - 500+++ Chaparrita/mcL [facility] Nitrite, UA Negative Negative - Positive [facility] pH, UA 6 5 - 9 [facility] Protein, UA Negative Negative - 1999(20) ++++ mg/dL [facility] Spec Grav, UA 1.01 1 - 1.03 [facility] Urobilinogen, UA 0.2 0.2 - 12 mg/dL [facility] Alpha-fetoprotein (AFP) luis urement (rxtvwxxo-kk-faohrp)Ordered By: Brain Way on 06-28-2024 AFP [MoM] Alpha-fetoprotein (A FP) measurement (pdegousy-ry-afkneg) . [facility] Determination of gestational ageOrdered By: Brain Way on 06-28-2024 Gestational age Assess gestational age . [facility] Estimation of maternal age-s pecific risk of Down syndrome birthOrdered By: Brain Seamus on 06-28-2024 Age [Time] Estimation of matern al age-specific risk of Down syndrome . [facility] Human chorionic gonadotropin (hCG) multiple of median measurementOrdered By: Brain Seamus on 06-28-2024 HCG [MoM] Human chorionic gonadotropin (hCG) multiple of median measurement . [facility] Insulin dependent diabetes m ellitus detectionOrdered By: Brain Way on 06-28-2024 Insulin dependent diabetes mellitus Ql Insulin dependent diabetes mellitus detection . [facility] Interpretation of serum or p lasma second trimester quad maternal screen (narrative reOrdered By: Brain Way on 06-28-2024 Second trimester quad maternal screen Mathew [Interp] Interpretation of serum or plasma second trimester quad maternal screen (narrative re . [facility] Comment on above: Interpretation:An in terpretation CANNOT be provided for this patientbecause necessary patient information was not provided (oneor more of: gestational age, weight, or patient age).Please call us with new clinical information.Recalculations are not recommended when gestational datingby LMP and ultrasound are within 10 days. No Panel InformationOrdered By: Brainjonathan Way on 06-28-2024 AFP Triple Screen Comment Comment . [facility] Comment on above: Stephanie Pinto , Ph.D., DABCCDirectorReferences: Available Upon Request.Multiples Of Median Cutoffs Abbreviation Definitions For AFP Elevations IDD- Insulin Dep DiabetesSingleton 2.5 Black 2.8 OSBR- Open Spina BifidaIDD 2.0 Twins 4.5 RiskDSR Cutoff 1:270 DSR- Down Syndrome RiskT18 Cutoff 1:100 T18- Trisomy 18For further inquiries contact [facility] Servicesat [phone].This test was developed and its performance characteristicsdetermined by [facility]. It has not been cleared or approvedby the Food and Drug Administration.Performed at: [facility] [id number] [place], [place] [id number] Director: Aubrey Moreno [facility], Phone: [phone] Alpha Fetoprotein Results Received Report . [facility] Down Syndrome Age Equivalent See interpretation. . [facility] Gestational Age Calculation Method Ultrasound . [facility] Comment on above: 18:5 on 06/12/2024 Maternal Quad Test Risk See interpretation. . [facility] Maternal Race . [facility] Multiple No . [facility] Serum or plasma dajnz-5-qjth protein measurement (mass/volume)Ordered By: Brain Way on 06-28-2024 AFP [Mass/Vol] Serum or plasma isjvz-3-krqttporkbh measurement (mass/volume) . [facility] Serum or plasma inhibin A me asurement (adjusted smqsqmvy-tn-mijjxf)Ordered By: Brain Way on 06-28-2024 Inhibin A adjusted [MoM] Serum or plasma inhibin A measurement (adjusted vttiwqtt-jz-pbipyg) . [facility] Serum or plasma inhibin A me asurement (mass/volume)Ordered By: Brain Way on 06-28-2024 Inhibin A [Mass/Vol] Inhibin A [Mass/vol ume] in Serum or Plasma . [facility] Serum or plasma total combin ed intact choriogonadotropin and beta subunit measurementOrdered By: Brain Way on 06-28-2024 HCG.intact+Beta subunit Qn Serum or plasma total combined intact choriogonadotropin and beta subunit measurement . [facility] Serum or plasma unconjugated estriol (E3) measurement (adjusted ybucizyl-la-gngcne)Ordered By: Brain Way on 06-28-2024 E3.unconjugated adjusted [MoM] Serum or plasma unconjugated estriol (E3) measurement (adjusted fxffuzay-go-kletyt) . [facility] Serum or plasma unconjugated estriol (E3) measurement (mass/volume)Ordered By: Brain Way on 06-28-2024 E3.unconjugated [Mass/Vol] Serum or plasma unconjugated estriol (E3) measurement (mass/volume) . [facility] Thyroid Stimulating Hormoneo n 06-28-2024 TSH Qn 3.44 m[IU]/L Normal 0.45-5.33 [facility] Comment on above: Result Comment: PERF ORMED BY: [place] [address] PATHOLOGIST STEAM DRIER OPERATOR JORDI SMITH M.D. Performed By: #### T SH3 #### [address] Thyrotropin [Units/volume] i n Serum or PlasmaOrdered By: Brain Way on 06-28-2024 TSH Qn Thyrotropin [Units/v olume] in Serum or Plasma 0.45-5.33 [facility] Trisomy 21 risk determinatio n in fetusOrdered By: Brain Way on 06-28-2024 Trisomy 21 risk Qn (fetus) Trisomy 21 risk determination in fetus . [facility] US OB >= 14 weeks Fetuson US OB >= 14 weeks Fetus [facility] Main [place] [address] [place] [address] Ultrasound Report Signed Patient: Tawnya Herring MR#: [id number] 29 : 1995 Acct:[id number] Age/Sex: 28 / F ADM Date: 06/22/24 Loc: Room: Type: [facility] Attending Dr: Brain Way DO Ordering [...] Norton Jr., D.O.06/22/2024 4:00 PM Dictation Location: [place] Tech: Rae Baldev Transcribed By: AGUILAR 06/22/24 1600 Dictated By: Zay Norton Jr, DO 06/22/24 1552 Signed By: 06/22/24 1600 Normal [facility] Urinalysis macro (dipstick) panel (U)on 06-12-2024 Bilirubin, UA Negative Negative - 4(70) +++ mg/dL [facility] Blood, UA Negative Negative - 50 Dain/mcL [facility] Clarity, UA Clear [facility] Color, UA Yellow [facility] Glucose, UA Negative Negative - 1999(110) ++++ mg/dL [facility] Interpretation and review of laboratory results Abnormal [facility] Ketones, UA Negative Negative - 160(16) ++++ mg/dL [facility] Leukocytes, UA Positive Negative - 500+++ Chaparrita/mcL [facility] Comment on above: small Nitrite, UA Negative Negative - Positive [facility] pH, UA 6 5 - 9 [facility] Protein, UA Negative Negative - 2000(20) ++++ mg/dL [facility] Spec Grav, UA 1.025 1 - 1.03 [facility] Urobilinogen, UA 1.0 0.2 - 12 mg/dL [facility] Thyrotropin [Units/volume] i n Serum or PlasmaOrdered By: Brain Way on 05-24-2024 TSH Qn 2.42 m[IU]/L Normal 0.45-5.33 [facility] Comment on above: Result Comment: PERF ORMED BY: [facility] [address] [place] [address] PATHOLOGIST STEAM DRIER OPERATOR JORDI SMITH M.D. Performed By: #### T SH3 #### [facility] [address] TSH Qn Thyrotropin [Units/v olume] in Serum or Plasma 0.45-5.33 [facility] Urinalysis macro (dipstick) panel (U)on 05-10-2024 Bilirubin, UA Negative Negative - 4(70) +++ mg/dL [facility] Blood, UA Negative Negative - 50 Dani/mcL [facility] Clarity, UA Clear [facility] Color, UA Yellow [facility] Glucose, UA Negative Negative - 1999(110) ++++ mg/dL [facility] Interpretation and review of laboratory results Normal [facility] Ketones, UA Negative Negative - 160(16) ++++ mg/dL [facility] Leukocytes, UA Negative Negative - 500+++ Chaparrita/mcL [facility] Nitrite, UA Negative Negative - Positive [facility] pH, UA 6.5 5 - 9 [facility] Protein, UA Negative Negative - 2000(20) ++++ mg/dL [facility] Spec Grav, UA 1.020 1 - 1.03 [facility] Urobilinogen, UA 1.0 0.2 - 12 mg/dL [facility] IGP,APTIMA HPV,AGE GDLNon AGE GDLN ACOG TESTING Note . [facility] Comment on above: TESTS RESULT FLAG UN ITS REF RANGE LAB Clinician Provided Cytology Information Source.............Cervix No. of containers..01 ThinPrep Vial Age Shweta BARLOW Mariel... FLAG LEGEND: L-Low Normal,H-High Normal,LL-Alert Low,HH-Alert High <-Panic Low,>-Panic High,A-Abnormal,AA-Critical Abnormal Performed at: 01 =G [facility] [address] [id number] Christelle Galan MD, IGP, RFX APTIMA HPV ASCU Note . [facility] Comment on above: TESTS RESULT FLAG UN ITS REF RANGE LAB DIAGNOSIS: 02 NEGATIVE FOR INTRAEPITHELIAL LESION OR MALIGNANCY. Specimen adequacy: 02 Satisfactory for evaluation. Endocervical and/or squamous metaplastic cells (endocervical component) are present. Performed by: Sanjiv Ornelas, [place] Filament Machine Operator . 02 Note: Note 02 The Pap [...] <-Panic Low,>-Panic High,A-Abnormal,AA-Critical Abnormal Performed at: [address] [phone] Christelle Galan MD, Performed at: =[address] [id number] Fire Protection Equipment Technician: Christelle Galan MD, Phone: [phone] Performed at: [address] [id number] Fire Protection Equipment Technician: Christelle Galan MD, Phone: [phone] [facility] URETHRITIS/DISCHARGE PLUS VA GINITIS (HTRX)on 04-22-2024 ATOPOBIUM VAGINAE 0.000 [facility] ATOPOBIUM VAGINAE Not detected [facility] BVAB 2,3 (BACTERIAL VAGINOSIS ASSOCIATED BACTERIA 2, 3); MOBILUNCUS SPP 24.821 Abnormal [facility] BVAB 2,3 (BACTERIAL VAGINOSIS ASSOCIATED BACTERIA 2, 3); MOBILUNCUS SPP Detected Abnormal [facility] Healthcare JANET ALBICANS, PARAPSILOSIS, TROPICALIS 0.000 NOMS [...] Healthcare MEGASPHAERA (TYPES 1, 2) Not detected [facility] MYCOPLASMA GENITALIUM 0.000 [facility] MYCOPLASMA GENITALIUM Not detected N [facility] NEISSERIA GONORRHOEAE 0.000 [facility] NEISSERIA GONORRHOEAE Not detected N [facility] TRICHOMONAS VAGINALIS 0.000 [facility] TRICHOMONAS VAGINALIS Not detected N [facility] Urinalysis macro (dipstick) panel (U)on 04-20-2024 Bilirubin, UA Negative Negative - 4(70) +++ mg/dL [facility] Blood, UA Positive Negative - 50 Dain/mcL [facility] Comment on above: trace-intact Clarity, UA Clear [facility] Color, UA Yellow [facility] Glucose, UA Negative Negative - 1999(110) ++++ mg/dL [facility] Interpretation and review of laboratory results Abnormal [facility] Ketones, UA Negative Negative - 160(16) ++++ mg/dL [facility] Leukocytes, UA Trace Negative - 500+++ Chaparrita/mcL [facility] Nitrite, UA Negative Negative - Positive [facility] pH, UA 6.0 5 - 9 [facility] Protein, UA Negative Negative - 2000(20) ++++ mg/dL [facility] Spec Grav, UA 1.030 1 - 1.03 [facility] Urobilinogen, UA 0.2 0.2 - 12 mg/dL [facility] CBC without diffon Hematocrit (Bld) [Volume fraction] 37.3 % [facility] Hemoglobin (Bld) [Mass/Vol] 13.3 g/dL [facility] Rbc Mcv (Fl) By Automated Count 92.1 [facility] No Panel Informationon 04-13 [facility] Rubella IGG immune statuson 04-13-2024 Rubella immune IgG 1.33 [facility] Syphilis Total(Unknown Syphi lis Status)on 04-13-2024 Syphilis Non-Reactive [facility] TBH BOX TEST SENT OUTon 03-17 BOX TEST SENT OUT 04/13/24 [facility] Drug Screen, Urineon 024 Amphetamine/Methamphe tamine Negative [facility] Barbiturate Screen Urine Negative [facility] Benzodiazepine Screen, Urine Negative [facility] Cocaine Metabolite Negative [facility] Methadone,Meconium Negative [facility] Opiate Quantitative Urine Negative [facility] Oxycodone Negative [facility] Phencyclidine Negative [facility] Thc Marijuana, Urine Negative [facility] HCG ( test) Ql (U)o n 04-07-2024 Interpretation and review of laboratory results Abnormal [facility] Preg Test, Ur Positive [facility] Urinalysis macro (dipstick) panel (U)on 04-07-2024 Bilirubin, UA Negative Negative - 4(70) +++ mg/dL [facility] Blood, UA Negative Negative - 50 Dain/mcL [facility] Clarity, UA Clear [facility] Color, UA Yellow [facility] Glucose, UA Negative Negative - 1999(110) ++++ mg/dL [facility] Interpretation and review of laboratory results Abnormal [facility] Ketones, UA Negative Negative - 160(16) ++++ mg/dL [facility] Leukocytes, UA Positive Negative - 500+++ Chaparrita/mcL [facility] Comment on above: small Nitrite, UA Negative Negative - Positive [facility] pH, UA 7.0 5 - 9 [facility] Protein, UA Negative Negative - 2000(20) ++++ mg/dL [facility] Spec Grav, UA 1.025 1 - 1.03 [facility] Urobilinogen, UA 0.2 0.2 - 12 mg/dL [facility] Automated basophil %Ordered By: Addi Ortega on 04-06-2024 Basophils/100 WBC (Bld) 0.2 % Normal . [facility] Comment on above: Performed By: #### P ILLYOSVANY TSH, PILLAR LIPID, PILLAR CBC, PILLAR BMP #### [facility] [address] Automated basophil countOrde red By: Addi Ortega on 04-06-2024 Basophils (Bld) [#/Vol] 0.0 10*3/uL Normal 0.0-0.2 [facility] Comment on above: Result Comment: PERF ORMED BY: [place] [address] PATHOLOGIST STEAM DRIER OPERATOR JORDI SMITH M.D. Performed By: #### P ILLAR TSH, PILLAR LIPID, PILLAR CBC, PILLAR BMP #### [address] Automated blood monocyte cou ntOrdered By: Addi Ortega on 04-06-2024 Monocytes (Bld) [#/Vol] 0.5 10*3/uL Normal 0.0-0.8 [facility] Comment on above: Performed By: #### P ILLAR TSH, PILLAR LIPID, PILLAR CBC, PILLAR BMP #### [address] Automated eosinophil %Ordere d By: Addi Ortega on 04-06-2024 Eosinophils/100 WBC (Bld) 0.5 % Normal . [facility] Comment on above: Performed By: #### P ILLAR TSH, PILLAR LIPID, PILLAR CBC, PILLAR BMP #### [address] Automated eosinophil countOr dered By: Addi Ortega on 04-06-2024 Eosinophils (Bld) [#/Vol] 0.0 10*3/uL Normal 0.0-0.45 [facility] Comment on above: Performed By: #### P ILLAR TSH, PILLAR LIPID, PILLAR CBC, PILLAR BMP #### [address] Automated monocyte %Ordered By: Addi Ortega on 04-06-2024 Monocytes/100 WBC (Bld) 5.6 % Normal . [facility] Comment on above: Performed By: #### P ILLAR TSH, PILLAR LIPID, PILLAR CBC, PILLAR BMP #### [address] Automated neutrophil %Ordere d By: Addi Ortega on 04-06-2024 Neutrophils/100 WBC (Bld) 64.9 % Normal . [facility] Comment on above: Performed By: #### P ILLAR TSH, PILLAR LIPID, PILLAR CBC, PILLAR BMP #### [place] [address] [place] Basophils Auto (Bld) [#/Vol] Ordered By: Addi Ortega on 04-06-2024 Basophils (Bld) [#/Vol] Automated basophil count 0.0-0.2 [facility] Basophils/100 WBC Auto (Bld) Ordered By: Addi Ortega on 04-06-2024 Basophils/100 WBC (Bld) Automated basophil % . [facility] Calcium [Mass/volume] in Ser um or PlasmaOrdered By: Addi Ortega on 04-06-2024 Calcium [Mass/Vol] 8.9 mg/dL Normal 8.6-10.3 [facility] Comment on above: Performed By: #### P ILLAR TSH, PILLAR LIPID, PILLAR CBC, PILLAR BMP #### [facility] [address] Calcium [Mass/Vol] Calcium [Mass/volume ] in Serum or Plasma 8.6-10.3 [facility] Carbon dioxide, total [Moles /volume] in Serum or PlasmaOrdered By: Addi Ortega on 04-06-2024 CO2 [Moles/Vol] 22.0 mmol/L Normal 21.0-31.0 [facility] Comment on above: Performed By: #### P ILLAR TSH, PILLAR LIPID, PILLAR CBC, PILLAR BMP #### [facility] [address] CO2 [Moles/Vol] Carbon dioxide, tota l [Moles/volume] in Serum or Plasma 21.0-31.0 [facility] Chloride [Moles/volume] in S ghada or PlasmaOrdered By: Addi Ortega on 04-06-2024 Chloride [Moles/Vol] 106 mmol/L Normal 98-107 [facility] Comment on above: Performed By: #### P ILLAR TSH, PILLAR LIPID, PILLAR CBC, PILLAR BMP #### [facility] [address] [place] [address] [place] Chloride [Moles/Vol] Chloride [Moles/vol ume] in Serum or Plasma 98-107 [facility] Cholesterol [Mass/volume] in Serum or PlasmaOrdered By: Addi Ortega on 04-06-2024 Cholesterol [Mass/Vol] 159 mg/dL Normal 140-200 [facility] Comment on above: Chol less than 200 m g/dl low riskChol 201-239 mg/dl borderline riskChol 240 mg/dl and greater high risk Result Comment: Chol less than 200 mg/dl low risk Chol 201-239 mg/dl borderline risk Chol 240 mg/dl and greater high risk Performed By: #### P ILLAR TSH, PILLAR LIPID, PILLAR CBC, PILLAR BMP #### [facility] [address] Cholesterol [Mass/Vol] Cholesterol [Mass/volume] in Serum or Plasma 140-200 [facility] Comment on above: Chol less than 200 m g/dl low riskChol 201-239 mg/dl borderline riskChol 240 mg/dl and greater high risk Cholesterol in HDL [Mass/vol ume] in Serum or PlasmaOrdered By: Addi Ortega on 04-06-2024 Cholesterol in HDL [Mass/Vol] Serum or plasma high density lipoprotein (HDL) cholesterol measurement [facility] Comment on above: HDL CHOL ATP-III CLA SSIFICATION Cardiovascular RiskHDL > or equal to 60 mg/dL LOWHDL < 40 mg/dL HIGH Cholesterol in LDL Calc [Mas s/Vol]Ordered By: Addi Ortega on 04-06-2024 Cholesterol in LDL [Mass/Vol] 95 mg/dL 0-100 [facility] Comment on above: LDL ATP III CLASSIFI CATIONLDL less than 100 mg/dL OptimalLDL 100-129 mg/dL Near or above optimalLDL 130-159 mg/dL Borderline highLDL 160-189 mg/dL HighLDL greater than 189 mg/dL Very high Cholesterol in LDL [Mass/Vol] Cholesterol in LDL [Mass/volume] in Serum or Plasma by calculation 0-100 [facility] Comment on above: LDL ATP III CLASSIFI CATIONLDL less than 100 mg/dL OptimalLDL 100-129 mg/dL Near or above optimalLDL 130-159 mg/dL Borderline highLDL 160-189 mg/dL HighLDL greater than 189 mg/dL Very high Cholesterol in VLDL Calc [Ma ss/Vol]Ordered By: Addi Ortega on 04-06-2024 Cholesterol in VLDL [Mass/Vol] 15 mg/dL [facility] Cholesterol in VLDL [Mass/Vol] Cholesterol in VLDL [Mass/volume] in Serum or Plasma by calculation [facility] Creatinine [Mass/volume] in Serum or PlasmaOrdered By: Addi Ortega on 04-06-2024 Creatinine [Mass/Vol] 0.44 mg/dL Low 0.60-1.20 [facility] Comment on above: Performed By: #### P ILLAR TSH, PILLAR LIPID, PILLAR CBC, PILLAR BMP #### [facility] [address] Creatinine [Mass/Vol] Creatinine [Mass/v olume] in Serum or Plasma Low 0.60-1.20 [facility] Employee Basic Metabolic Suero nargis 04-06-2024 GFR/1.73 sq M.predicted MDRD (S/P/Bld) [Vol rate/Area] mL/min/{1.73_m2} Normal [facility] Comment on above: Performed By: #### P ILLAR TSH, PILLAR LIPID, PILLAR CBC, PILLAR BMP #### [facility] [address] [place] [address] Employee Complete Blood Coun ton 04-06-2024 Mean Corpuscular HGB Conc 35.4 g/dL High 32.0-35.0 [facility] Comment on above: Performed By: #### P ILLAR TSH, PILLAR LIPID, PILLAR CBC, PILLAR BMP #### [facility] [address] [place] [address] NRBC% 0.0 /100{WBC} Normal 0-0.5 [facility] Comment on above: Performed By: #### P ILLAR TSH, PILLAR LIPID, PILLAR CBC, PILLAR BMP #### [facility] [address] [place] [address] Employee Lipid Profileon LDL Cholesterol,Calculate d 95 [...] CBC, PILLAR BMP #### [facility] [address] Triglyceride w/Reflex 79 mg/dL Normal [...] PILLAR LIPID, PILLAR CBC, PILLAR BMP #### [address] VLDL CHOLESTEROL 15 mg/dL Normal [facility] Comment on above: Performed By: #### P ILLAR TSH, PILLAR LIPID, PILLAR CBC, PILLAR BMP #### [address] Employee Thyroid Stim Hormon gokul 04-06-2024 Employee Thyroid Stim Hormone 2.72 u[iU]/mL Normal 0.45-5.33 [facility] Comment on above: Result Comment: PERF ORMED BY: [place] [address] PATHOLOGIST STEAM DRIER OPERATOR JORDI SMITH M.D. Performed By: #### P ILLAR TSH, PILLAR LIPID, PILLAR CBC, PILLAR BMP #### [place] [address] [place] Eosinophils Auto (Bld) [#/Vo l]Ordered By: Addi Ortega on 04-06-2024 Eosinophils (Bld) [#/Vol] Automated eosinophil count 0.0-0.45 [facility] Eosinophils/100 WBC Auto (Bl d)Ordered By: Addi Orteag on 04-06-2024 Eosinophils/100 WBC (Bld) Automated eosinophil % . [facility] Erythrocyte distribution wid th Auto (RBC) [Ratio]Ordered By: Addi Ortega on 04-06-2024 Erythrocyte distribution width (RBC) [Ratio] Erythrocyte distribution width [Ratio] by Automated count 11.9-15.3 [facility] Erythrocyte distribution wid th [Ratio] by Automated countOrdered By: Addi Ortega on 04-06-2024 Erythrocyte distribution width (RBC) [Ratio] 12.7 % Normal 11.9-15.3 [facility] Comment on above: Performed By: #### P ILLAR TSH, PILLAR LIPID, PILLAR CBC, PILLAR BMP #### [facility] [address] [place] [address] [place] Erythrocytes [#/volume] in B lood by Automated countOrdered By: Addi Ortega on 04-06-2024 RBC (Bld) [#/Vol] 4.04 10*6/uL Normal 3.60-5.00 [facility] Comment on above: Performed By: #### P ILLAR TSH, PILLAR LIPID, PILLAR CBC, PILLAR BMP #### [facility] [address] [place] [address] [place] Glucose [Mass/volume] in Ser um or PlasmaOrdered By: Addi Ortega on 04-06-2024 Glucose [Mass/Vol] 82 mg/dL Normal 70-100 [facility] Comment on above: Performed By: #### P ILLAR TSH, PILLAR LIPID, PILLAR CBC, PILLAR BMP #### [facility] [address] [place] [address] [place] Glucose [Mass/Vol] Glucose [Mass/volume ] in Serum or Plasma 70-100 [facility] Hematocrit Auto (Bld) [Volum e fraction]Ordered By: Addi Ortega on 04-06-2024 Hematocrit (Bld) [Volume fraction] Hematocrit [Volume Fraction] of Blood by Automated count 34.0-46.4 [facility] Hematocrit [Volume Fraction] of Blood by Automated countOrdered By: Addi Ortega on 04-06-2024 Hematocrit (Bld) [Volume fraction] 37.6 % Normal 34.0-46.4 [facility] Comment on above: Performed By: #### P ILLAR TSH, PILLAR LIPID, PILLAR CBC, PILLAR BMP #### [facility] [address] [place] [id number] [place] Hemoglobin [Mass/volume] in BloodOrdered By: Addi Ortega on 04-06-2024 Hemoglobin (Bld) [Mass/Vol] 13.3 g/dL Normal 11.8-15.4 [facility] Comment on above: Performed By: #### P ILLAR TSH, PILLAR LIPID, PILLAR CBC, PILLAR BMP #### [facility] [address] [place] [address] Hemoglobin (Bld) [Mass/Vol] Hemoglobin [Mass/volume] in Blood 11.8-15.4 [facility] Leukocytes [#/volume] correc hamilton for nucleated erythrocytes in Blood by Automated counOrdered By: Addi Ortega on 04-06-2024 WBC corrected for nucl RBC Auto (Bld) [#/Vol] 8.9 10*3/uL 3.8-11.6 [facility] WBC corrected for nucl RBC Auto (Bld) [#/Vol] Leukocytes [#/volume] corrected for nucleated erythrocytes in Blood by Automated coun 3.8-11.6 [facility] Leukocytes [#/volume] in Blo od by Automated countOrdered By: Addi Ortega on 04-06-2024 WBC (Bld) [#/Vol] 8.9 10*3/uL Normal 3.8-11.6 [facility] Comment on above: Performed By: #### P ILLAR TSH, PILLAR LIPID, PILLAR CBC, PILLAR BMP #### [place] [address] [place] Lymphocytes Auto (Bld) [#/Vo l]Ordered By: Addi Ortega on 04-06-2024 Lymphocytes (Bld) [#/Vol] Lymphocytes [#/volume] in Blood by Automated count 1.00-4.8 [facility] Lymphocytes [#/volume] in Bl ood by Automated countOrdered By: Addi Ortega on 04-06-2024 Lymphocytes (Bld) [#/Vol] 2.5 10*3/uL Normal 1.00-4.8 [facility] Comment on above: Performed By: #### P ILLAR TSH, PILLAR LIPID, PILLAR CBC, PILLAR BMP #### [facility] [address] [place] [address] Lymphocytes/100 WBC Auto (Bl d)Ordered By: Addi Ortega on 04-06-2024 Lymphocytes/100 WBC (Bld) Lymphocytes/100 leukocytes in Blood by Automated count . [facility] Lymphocytes/100 leukocytes i n Blood by Automated countOrdered By: Addi Ortega on 04-06-2024 Lymphocytes/100 WBC (Bld) 28.8 % Normal . [facility] Comment on above: Performed By: #### P ILLAR TSH, PILLAR LIPID, PILLAR CBC, PILLAR BMP #### [facility] [address] MCH Auto (RBC) [Entitic mass ]Ordered By: Addi Ortega on 04-06-2024 MCH (RBC) [Entitic mass] MCH [Entitic mass] by Automated count 24.7-34.3 [facility] MCH [Entitic mass] by Automa hamitlon countOrdered By: Addi Ortega on 04-06-2024 MCH (RBC) [Entitic mass] 32.9 pg Normal 24.7-34.3 [facility] Comment on above: Performed By: #### P ILLAR TSH, PILLAR LIPID, PILLAR CBC, PILLAR BMP #### [facility] [address] MCHC Auto (RBC) [Mass/Vol]Or dered By: Addi Ortega on 04-06-2024 MCHC (RBC) [Mass/Vol] 35.4 g/dL High 32.0-35.0 [facility] MCHC (RBC) [Mass/Vol] MCHC [Mass/volume] by Automated count High 32.0-35.0 [facility] MCV Auto (RBC) [Entitic vol] Ordered By: Addi Ortega on 04-06-2024 MCV (RBC) [Entitic vol] MCV [Entitic volume] by Automated count 80-100 [facility] MCV [Entitic volume] by Auto mated countOrdered By: Addi Ortega on 04-06-2024 MCV (RBC) [Entitic vol] 93.2 fL Normal 80-100 [facility] Comment on above: Performed By: #### P ILLAR TSH, PILLAR LIPID, PILLAR CBC, PILLAR BMP #### [facility] [address] [place] [address] [place] Monocytes Auto (Bld) [#/Vol] Ordered By: Addi Ortega on 04-06-2024 Monocytes (Bld) [#/Vol] Automated blood monocyte count 0.0-0.8 [facility] Monocytes/100 WBC Auto (Bld) Ordered By: Addi Ortega on 04-06-2024 Monocytes/100 WBC (Bld) Automated monocyte % . [facility] Neutrophils Auto (Bld) [#/Vo l]Ordered By: Addi Ortega on 04-06-2024 Neutrophils (Bld) [#/Vol] Neutrophils [#/volume] in Blood by Automated count 1.8-7.7 [facility] Neutrophils [#/volume] in Bl ood by Automated countOrdered By: Addi Ortega on 04-06-2024 Neutrophils (Bld) [#/Vol] 5.8 10*3/uL Normal 1.8-7.7 [facility] Comment on above: Performed By: #### P ILLAR TSH, PILLAR LIPID, PILLAR CBC, PILLAR BMP #### [facility] [address] Neutrophils/100 WBC Auto (Bl d)Ordered By: Addi Ortega on 04-06-2024 Neutrophils/100 WBC (Bld) Automated neutrophil % . [facility] No Panel InformationOrdered By: Addi Ortega on 04-06-2024 Estimated GFR (CKD-EPI) > 60.0 mL/Min [facility] Creatinine Clearance (Chem N/A [facility] Nucleated erythrocytes [Pres ence] in Blood by Automated countOrdered By: Addi Ortega on 04-06-2024 Nucleated RBC Auto Ql (Bld) 0.0 /100{WBC} 0-0.5 [facility] Nucleated RBC Auto Ql (Bld) Nucleated erythrocytes [Presence] in Blood by Automated count 0-0.5 [facility] Platelet mean volume Auto (B ld) [Entitic vol]Ordered By: Addi Ortega on 04-06-2024 Platelet mean volume (Bld) [Entitic vol] Platelet mean volume [Entitic volume] in Blood by Automated count 6.3-10.7 [facility] Platelet mean volume [Entiti c volume] in Blood by Automated countOrdered By: Addi Ortega on 04-06-2024 Platelet mean volume (Bld) [Entitic vol] 8.8 fL Normal 6.3-10.7 [facility] Comment on above: Performed By: #### P ILLAR TSH, PILLAR LIPID, PILLAR CBC, PILLAR BMP #### [facility] [address] Platelets Auto (Bld) [#/Vol] Ordered By: Addi Ortega on 04-06-2024 Platelets (Bld) [#/Vol] Platelets [#/volume] in Blood by Automated count 150-450 [facility] Platelets [#/volume] in Bloo d by Automated countOrdered By: Addi Ortega on 04-06-2024 Platelets (Bld) [#/Vol] 274 10*3/uL Normal 150-450 [facility] Comment on above: Performed By: #### P ILLAR TSH, PILLAR LIPID, PILLAR CBC, PILLAR BMP #### [facility] [address] [place] [address] [place] Potassium [Moles/volume] in Serum or PlasmaOrdered By: Addi Ortega on 04-06-2024 Potassium [Moles/Vol] 4.0 mmol/L Normal 3.5-5.1 [facility] Comment on above: Performed By: #### P ILLAR TSH, PILLAR LIPID, PILLAR CBC, PILLAR BMP #### [facility] [address] [place] [address] [place] Potassium [Moles/Vol] Potassium [Moles/v olume] in Serum or Plasma 3.5-5.1 [facility] RBC Auto (Bld) [#/Vol]Ordere d By: Addi Ortega on 04-06-2024 RBC (Bld) [#/Vol] Erythrocytes [#/volu me] in Blood by Automated count 3.60-5.00 [facility] Serum or plasma anion gap de terminationOrdered By: Addi Ortega on 04-06-2024 Anion gap [Moles/Vol] 11.0 mmol/L Normal 6.0-15.0 [facility] Comment on above: Performed By: #### P ILLAR TSH, PILLAR LIPID, PILLAR CBC, PILLAR BMP #### [facility] [address] Anion gap [Moles/Vol] Serum or plasma an ion gap determination 6.0-15.0 [facility] Serum or plasma high density lipoprotein (HDL) cholesterol measurementOrdered By: Addi Ortega on 04-06-2024 Cholesterol in HDL [Mass/Vol] 48 mg/dL Normal 23-92 [facility] Comment on above: HDL CHOL ATP-III CLA SSIFICATION Cardiovascular RiskHDL > or equal to 60 mg/dL LOWHDL < 40 mg/dL HIGH Result Comment: HDL CHOL ATP-III CLASSIFICATION Cardiovascular Risk HDL > or equal to 60 mg/dL LOW HDL < 40 mg/dL HIGH Performed By: #### P ILLAR TSH, PILLAR LIPID, PILLAR CBC, PILLAR BMP #### [facility] [address] [place] [address] Serum or plasma total choles terol/high density lipoprotein (HDL) cholesterol mass ratOrdered By: Addi Ortega on 04-06-2024 Cholesterol.total/Cho lesterol in HDL [Mass ratio] 3.3 {ratio} Normal <5.0 [facility] Comment on above: Performed By: #### P ILLAR TSH, PILLAR LIPID, PILLAR CBC, PILLAR BMP #### [facility] [address] Cholesterol.total/Cho lesterol in HDL [Mass ratio] Serum or plasma total cholesterol/high density lipoprotein (HDL) cholesterol mass rat <5.0 [facility] Sodium [Moles/volume] in Ser um or PlasmaOrdered By: Addi Ortega on 04-06-2024 Sodium [Moles/Vol] 135 mmol/L Low 136-145 [facility] Comment on above: Performed By: #### P ILLAR TSH, PILLAR LIPID, PILLAR CBC, PILLAR BMP #### [facility] [address] [place] [address] Sodium [Moles/Vol] Sodium [Moles/volume ] in Serum or Plasma Low 136-145 [facility] Thyrotropin [Units/volume] i n Serum or PlasmaOrdered By: Addi Ortega on 04-06-2024 TSH Qn 2.72 m[IU]/L 0.45-5.33 [facility] TSH Qn Thyrotropin [Units/v olume] in Serum or Plasma 0.45-5.33 [facility] Triglyceride [Mass/volume] i n Serum or PlasmaOrdered By: Addi Ortega on 04-06-2024 Triglyceride [Mass/Vol] 79 mg/dL 0-149 [facility] Comment on above: TRIG ATP III CLASSIF ICATIONTRIG less than 150 mg/dL NormalTRIG 150-199 mg/dL Borderline highTRIG 200-500 mg/dL High TRIG greater than 500 mg/dL Very highStandard traceable to the Center for Disease Conrtrol and Prevention (CDC) test method. Triglyceride [Mass/Vol] Triglyceride [Mass/volume] in Serum or Plasma 0-149 [facility] Comment on above: TRIG ATP III CLASSIF ICATIONTRIG less than 150 mg/dL NormalTRIG 150-199 mg/dL Borderline highTRIG 200-500 mg/dL High TRIG greater than 500 mg/dL Very highStandard traceable to the Center for Disease Conrtrol and Prevention (CDC) test method. Urea nitrogen [Mass/volume] in Serum or PlasmaOrdered By: Addi Ortega on 04-06-2024 Urea nitrogen [Mass/Vol] 7 mg/dL Normal 03-09 [facility] Comment on above: Performed By: #### P ILLAR TSH, PILLAR LIPID, PILLAR CBC, PILLAR BMP #### [facility] [address] Urea nitrogen [Mass/Vol] Urea nitrogen [Mass/volume] in Serum or Plasma 03-09 [facility] WBC Auto (Bld) [#/Vol]Ordere d By: Addi Ortega on 04-06-2024 WBC (Bld) [#/Vol] Leukocytes [#/volume ] in Blood by Automated count 3.8-11.6 [facility] ED Note-Physicianon 03-20-20 ED Note-Physician ED [...] [] [facility] Data External documents reviewed: [] My EKG [...] with the patient. 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 Discussed return precautions. [...] Nath In 3 days 03/21/2024 EDT [address] [place] [address]- Business (1) Additional Instructions: DARWIN JONES In 3 days [address] [place] [address] [place] [address]- [phone] Business (1) Additional Instructions: Patient Education Threatened Miscarriage Subchorionic Hematoma Attestation Patient seen and evaluated by the physician preschool teacher assistant. Attending physician was present in the emergency department and supervised care. This visit was performed by both the physician and an APC. I performed all aspects of the MDM as documented. This report was transcribed using voice recognition software. Every effort was made to ensure accuracy, however, inadvertently computerized dross skimmer mistakes may be present. Appropriate healthc (more content not included)... Normal [facility] Comment on above: Result Comment: Elec tronically Signed By: Hector Correa PA-C\.br\Date and Time Signed: 03/18/24 12:11 EDT\.br\Electronically Co-Signed By: [place] DO\.br\Date and Time Co-Signed: 03/20/24 07:17 EDT ABO/Rhon 03-18-2024 ABO/Rh Negative Invalid Interpretation Code [facility] Comment on above: Performed By: #### [id number] #### [facility] [address] [place] [address] BLOOD BANKOrdered By: Nikky Brennan on 03-18-2024 ABO/Rh Interp Negative Invalid Interpretation Code [facility] BB Subsection BMPon 03-18-2024 Anion gap [Moles/Vol] 12 mmol/L Normal 6-16 [facility] Comment on above: Performed By: #### [id number] #### [facility] [address] [place] [address] Calcium [Mass/Vol] 9.2 mg/dL Normal 8.9-11.1 [facility] Comment on above: Performed By: #### [id number] #### [facility] [address] [place] [address] Chloride [Moles/Vol] 105 mmol/L Normal 101-111 [facility] Comment on above: Performed By: #### 2 [id number] #### [facility] [address] [place] [address] CO2 [Moles/Vol] 23 mmol/L Normal 21-31 [facility] Comment on above: Performed By: #### 2 [id number] #### [facility] [address] [place] [address] Creatinine [Mass/Vol] 0.5 mg/dL Normal 0.5-1.3 [facility] Comment on above: Performed By: #### 2 [id number] #### [facility] [address] [place] [address] Glucose [Mass/Vol] 92 mg/dL Normal 55-199 [facility] Comment on above: Performed By: #### 2 [id number] #### [facility] [address] [place] [address] Potassium [Moles/Vol] 3.8 mmol/L Normal 3.5-5.3 [facility] Comment on above: Performed By: #### 2 [id number] #### [facility] [address] [place] [address] Sodium [Moles/Vol] 136 mmol/L Normal 135-145 [facility] Comment on above: Performed By: #### 2 110807 #### [facility] [address] [place] [address] Urea nitrogen [Mass/Vol] 9 mg/dL Normal 5-21 [facility] Comment on above: Performed By: #### 2 069063 #### [facility] [address] [place] [address] Urea nitrogen/Creatinine [Mass ratio] 18 No Units Normal 10-20 [facility] Comment on above: Performed By: #### 2 [id number] #### [facility] [address] [place] [address] [facility] [place] 03-18-2024 [place] [address] m[IU]/mL High 1-3 [facility] Comment on above: Result Comment: 'F N ON < 1 - 3' ' 0.2 - 1 WEEK = 5 TO 50' ' 1 - 2 WEEKS = 50 - 500' ' 2 - 3 WEEKS = 100 - 5000' ' 3 - 4 WEEKS = 500 - 09025' ' 4 - 5 WEEKS = 1000 - 15543' ' 5 - 6 WEEKS = 42140 - 087875' ' 6 - 8 WEEKS = 33870 - 778477' ' 8 - 12 WEEKS = 86050 - 589978' Performed By: #### 2 715426 #### [facility] [address] [place] [address] CBC w/ Auto Diffon 4 Basophils/100 WBC (Bld) 0.6 % Normal 0.0-2.0 [facility] Comment on above: Performed By: #### 2 467463 #### [facility] [address] [place] [address] Basophils/Leukocytes Auto (Bld) [Pure # fraction] 0.0 E9/L Normal 0.0-0.2 [facility] Comment on above: Performed By: #### 2 261673 #### [facility] [address] [place] [address] Eosinophils (Bld) [#/Vol] 0.0 E9/L Normal 0.0-0.5 [facility] Comment on above: Performed By: #### 2 717434 #### [facility] [address] [place] [address] Eosinophils/100 WBC (Bld) 0.5 % Normal 0.0-8.0 [facility] Comment on above: Performed By: #### 2 882721 #### [facility] [address] [place] [address] Erythrocyte distribution width (RBC) [Ratio] 12.5 % Normal 10.9-14.2 [facility] Comment on above: Performed By: #### 2 688331 #### [facility] [address] [place] [address] Hematocrit (Bld) [Volume fraction] 40.2 % Normal 34.0-46.0 [facility] Comment on above: Performed By: #### 2 573087 #### [facility] [address] [place] [address] Hemoglobin (Bld) [Mass/Vol] 13.8 g/dL Normal 12.0-16.0 [facility] Comment on above: Performed By: #### 2 031600 #### [facility] [address] [place] [address] Lymphocytes (Bld) [#/Vol] 2.4 E9/L Normal 1.0-4.0 [facility] Comment on above: Performed By: #### 2 978713 #### [facility] [address] [place] [address] Lymphocytes/100 WBC (Bld) 28.4 % Normal 14.0-50.0 [facility] Comment on above: Performed By: #### 2 608486 #### [facility] [address] [place] [address] MCH (RBC) [Entitic mass] 32.3 pg Normal 27.0-34.0 [facility] Comment on above: Performed By: #### 2 161443 #### [facility] [address] [place] [address] MCHC (RBC) [Mass/Vol] 34.3 g/dL Normal 31.4-36.0 [facility] Comment on above: Performed By: #### 2 146045 #### [facility] [address] [place] [address] MCV (RBC) [Entitic vol] 94.2 fL Normal 80.0-100.0 [facility] Comment on above: Performed By: #### 2 239942 #### [facility] [address] [place] [address] Monocytes (Bld) [#/Vol] 0.4 E9/L Normal 0.2-1.0 [facility] Comment on above: Performed By: #### 2 022439 #### [facility] [address] [place] [address] Neutrophils (Bld) [#/Vol] 5.4 E9/L Normal 2.0-7.5 [facility] Comment on above: Performed By: #### 2 071458 #### [facility] [address] [place] [address] Neutrophils/100 WBC (Bld) 65.4 % Normal 36.0-75.0 [facility] Comment on above: Performed By: #### 2 956219 #### [facility] [address] [place] [address] Platelet mean volume (Bld) [Entitic vol] 8.5 fL Normal 6.4-10.8 [facility] Comment on above: Performed By: #### 2 653147 #### [facility] [address] [place] [address] Platelets (Bld) [#/Vol] 249.0 E9/L Normal 150.0-500. 0 [facility] Comment on above: Performed By: #### 2 026122 #### [facility] [address] [place] [address] RBC (Bld) [#/Vol] 4.3 E12/L Normal 4.3-5.9 [facility] Comment on above: Performed By: #### 2 240903 #### [facility] [address] [place] [address] WBC corrected for nucl RBC Auto (Bld) [#/Vol] 8.3 E9/L Normal 4.0-11.0 [facility] Comment on above: Performed By: #### 2 350649 #### [facility] [address] [place] [address] CHEMISTRYOrdered By: SYSTEM SYSTEM on 03-18-2024 Anion [...] 199 mg/[place] [address] m[IU]/mL High 1 - 3 mIU/mL [facility] Comment on above: Result Comment: 'F N ON < 1 - 3' ' 0.2 - 1 WEEK = 5 TO 50' ' 1 - 2 WEEKS = 50 - 500' ' 2 - 3 WEEKS = 100 - 5000' ' 3 - 4 WEEKS = 500 - 23345' ' 4 - 5 WEEKS = 1000 - 51935' ' 5 - 6 WEEKS = 87164 - 317749' ' 6 - 8 WEEKS = 70321 - 165000' ' 8 - 12 WEEKS = 78648 - 408906' Potassium [Moles/Vol] 3.8 mmol/L Normal 3.5 - 5.3 mmol/L [facility] Sodium [Moles/Vol] 136 mmol/L Normal 135 - 145 mmol/L [facility] Urea nitrogen [Mass/Vol] 9 mg/dL Normal 5 - 21 mg/dL [facility] Urea nitrogen/Creatinine [Mass ratio] 18 mg/mg Normal 10 - 20 [facility] ED Clinical Summaryon 2023 ED Clinical Summary ED Clinical Summary [place] [id number] ED Clinical Summary Person Information Name: TAWNYA HERRING [facility] Age: 28 Years : 1995 Sex: Female Language: Burmese PCP: DARWIN JONES CNP Marital Status: Single Phone: [phone] Visit Id: Visit Reason: Vaginal bleeding - [...] 03/18/2024 12:15:02 03/18/2024 12:15:02 03/18/2024 12:15:02 ADDRESS: [address] [place] [phone] PHYS DOC NOTES: MEDICAL INFORMATION: Prescriptions Given: Medications to Continue with No Changes Other Medications citalopram (CeleXA 20 mg Tab) 1 Tablets By Mouth every day. PATIENT EDUCATION INFORMATION: Instructions: Threatened Miscarriage; Subchorionic Hematoma Follow up: With: Address: When: Rogelio Nath [address] [place], [place] [id number] Business (1) In 3 days 03/21/2024 With: Address: When: DARWIN JONES [address] [place], [place] [phone] Business (1) In 3 days DIAGNOSIS: Subchorionic bleed; Threatened Normal [facility] ED Patient Summaryon 024 ED Patient Summary ED Patient Summary [address] [address] Patient Discharge Instructions Person Information Name: TAWNYA HERRING Age: 28 Years Arrival Date: 03/18/2024 08:06:19 Discharge Diagnosis: Subchorionic bleed; Threatened Primary Care Physician: DARWIN JONES CNP Provider Information Primary Provider: Toan Lake DO Advanced Support Associate:None The exam and treatment you received in the Emergency Department were for an urgent problem and are not intended as complete care. It is important that you follow up with a doctor, nurse practitioner, or physician?s preschool teacher assistant for ongoing care. If your symptoms [...] Instructions: With: Address: When: Rogelio Nath [address] [facility] [address], [place] [address] Business (1) In 3 days 03/21/2024 With: Address: When: DARWIN JONES [address] [facility] [place] [phone] Business (1) In 3 days In the event that this physician does not participate in your insurance network, please consult with your insurance company to find a nearby participating provider. Patient Education Materials: Threatened Miscarriage; Subchorionic Hematoma A MESSAGE TO ALL PATIENTS REGARDING OPIOIDS PRESCRIPTION OPIOIDS: WHAT YOU NEED TO KNOW Prescription opioids can be used to help relieve njtznlet-vb-nyavkr pain and are often prescribed following a [...] you be (more content not included)... Normal [facility] HEMATOLOGYOrdered By: SYSTEM SYSTEM on [...] 24 Bilirubin Ql (U) Negative Normal Negative [facility] Comment on above: Performed By: #### 4 [id number] #### [facility] [address] [place] [address] Clarity (U) Clear Normal Clear [facility] Comment on above: Performed By: #### 4 [id number] #### [facility] [address] [place] [address] Color (U) Yellow Normal Yellow [facility] Comment on above: Result Comment: Micr oscopic readings are only performed on those samples that meet specific criteria set forth by [facility]. Performed By: #### 4 [id number] #### [facility] [address] [place] [address] Epithelial cells.squamous Auto (Urine sed) [#/Area] 0-2 Invalid Interpretation Code [facility] Comment on above: Performed By: #### 4 [id number] #### [facility] [address] [place] [address] Glucose Ql (U) Negative Normal Negative [facility] Comment on above: Performed By: #### 4 [id number] #### [facility] [address] [place] [address] Hemoglobin Auto test strip (U) [Mass/Vol] 3+ mg/dL Abnormal Negative [facility] Comment on above: Performed By: #### 4 [id number] #### [facility] [address] [place] [address] Ketones Auto test strip Ql (U) Negative Normal Negative [facility] Comment on above: Performed By: #### 4 [id number] #### [facility] [address] [place] [address] Leukocyte esterase Auto test strip Ql (U) 25 Chaparrita/uL Normal Negative [facility] Comment on above: Performed By: #### 4 [id number] #### [facility] [address] [place] [address] Mucus Auto Ql (U) Trace Normal Negative [facility] Comment on above: Performed By: #### 4 [id number] #### [facility] [address] [place] [address] Nitrite Auto test strip Ql (U) Negative Normal Negative [facility] Comment on above: Performed By: #### 4 [id number] #### [facility] [address] [place] [address] pH (U) 7.5 [pH] Invalid Interpretation Code 5.0-9.0 [facility] Comment on above: Performed By: #### 4 [id number] #### [facility] [address] [place] [address] Protein Ql (U) Trace Abnormal Negative [facility] Comment on above: Performed By: #### 4 [id number] #### [facility] [address] [place] [address] RBC Ql (U) 31-75 Abnormal 0-3 [facility] Comment on above: Performed By: #### 4 [id number] #### [facility] [address] [place] [address] Specific gravity (U) [Rel density] 1.023 Invalid Interpretation Code 1.005-1.03 0 [facility] Comment on above: Performed By: #### 4 [id number] #### [facility] [address] [place] [address] Urobilinogen (U) [Mass/Vol] Negative Normal Negative [facility] Comment on above: Performed By: #### 4 [id number] #### [facility] [address] [place] [address] WBC Auto (Urine sed) [#/Area] 0-5 Normal 0-5 [facility] Comment on above: Performed By: #### 4 [id number] #### [facility] [address] [place] [address] Type of Urine collection method Clean Catch Normal [facility] Comment on above: Performed By: #### 4 [id number] #### [facility] [address] [place] [address] URINALYSISOrdered By: SYSTEM SYSTEM on 03-18-2024 Bilirubin Ql (U) Negative Normal Negativemg /dL [facility] UA Auto SS Clarity (U) Clear (03/18/24 8:17 AM) Normal Clear [facility] UA Auto SS Color (U) Yellow 1 (03/18/24 8:17 AM) Normal Yellow [facility] UA Auto SS Comment on above: Interpretive Data: M icroscopic readings are only performed on those samples that meet specific criteria set forth by [facility]. Epithelial cells.squamous Auto (Urine [...] intrauterine , with heart rate 125 bpm. [place]-rump length 3.22 mm. Mean sac diameter 1.74 [...] Transabdominal Ultrasound Performed Transvaginal Ultrasound Performed Normal [facility] US Transvaginalon 03-18-2024 US Transvaginal Exam Date/Time: 03/18/2024 11:41 EDT Reason for Exam: Vaginal bleeding Report Please review ultrasound pelvis for ultrasound transvaginal report. Ordering Provider: Hector Correa FINAL REPORT Dictated: 03/18/2024 12:06 pm Luis Alfredo Bunch MD Signed (Electronic Signature): 03/18/2024 12:06 pm Signed by: Luis Alfredo Bunch MD Transcribed by: EDWIN Technologist: MARCOS Normal [facility] eGFRon 03-18-2024 eGFR 131 mL/min/1.73 m2 Normal >=59 [facility] Comment on above: Order Comment: Order added by Discern Expert. Performed By: #### 1 [id number] #### [facility] [address] [place] [address] Progesteroneon 02-24-2024 Progesterone 9.9 ng/mL Normal . [facility] Comment on above: Result Comment: Foll icular phase 0.1 - 0.9 Luteal phase 1.8 - 23.9 Ovulation phase 0.1 - 12.0 First trimester 11.0 - 44.3 Second trimester 25.4 - 83.3 Third trimester 58.7 - 214.0 Postmenopausal 0.0 - 0.1 Performed at: [facility] [address] [id number] Fire Protection Equipment Technician: Alexis Ashton PhD, Phone: [phone] PERFORMED BY: [facility] [address] [place] [address] PATHOLOGIST STEAM DRIER OPERATOR JORDI SMITH M.D. Performed By: #### P ANTHONY ####[facility] , Serum or plasma progesterone measurement (mass/volume)Ordered By: Brain Way on 02-24-2024 Progesterone [Mass/Vol] 9.9 ng/mL . [facility] Comment on above: Follicular phase 0.1 - 0.9 Luteal phase 1.8 - 23.9 Ovulation phase 0.1 - 12.0 First trimester 11.0 - 44.3 Second trimester 25.4 - 83.3 Third trimester 58.7 - 214.0 Postmenopausal 0.0 - 0.1Performed at: [facility] [place] [id number] Director: Alexis Ashton PhD, Phone: [phone] Progesteroneon 01-24-2024 Progesterone 8.5 ng/mL Normal . [facility] Comment on above: Result Comment: Foll icular phase 0.1 - 0.9 Luteal phase 1.8 - 23.9 Ovulation phase 0.1 - 12.0 First trimester 11.0 - 44.3 Second trimester 25.4 - 83.3 Third trimester 58.7 - 214.0 Postmenopausal 0.0 - 0.1 Performed at: [facility] [address] [id number] Fire Protection Equipment Technician: Alexis Ashton PhD, Phone: [phone] PERFORMED BY: [place] [address] [place] [address] PATHOLOGIST STEAM DRIER OPERATOR JORDI SMITH M.D. Performed By: #### P ANTHONY ####[facility] , Serum or plasma progesterone measurement (mass/volume)Ordered By: Brain Way on 01-24-2024 Progesterone [Mass/Vol] 8.5 ng/mL . [facility] Comment on above: Follicular phase 0.1 - 0.9 Luteal phase 1.8 - 23.9 Ovulation phase 0.1 - 12.0 First trimester 11.0 - 44.3 Second trimester 25.4 - 83.3 Third trimester 58.7 - 214.0 Postmenopausal 0.0 - 0.1Performed at: [facility] [address] [id number] Director: Alexis Ashton PhD, Phone: [phone] Progesteroneon 12-27-2023 Progesterone 13.3 ng/mL Normal . [facility] Comment on above: Result Comment: Foll icular phase 0.1 - 0.9 Luteal phase 1.8 - 23.9 Ovulation phase 0.1 - 12.0 First trimester 11.0 - 44.3 Second trimester 25.4 - 83.3 Third trimester 58.7 - 214.0 Postmenopausal 0.0 - 0.1 Performed at: [facility] [address] [id number] Fire Protection Equipment Technician: Alexis Ashton PhD, Phone: [phone] PERFORMED BY: [place] [address] [place] [address] PATHOLOGIST STEAM DRIER OPERATOR JORDI SMITH M.D. Performed By: #### P ANTHONY ####[facility] , Serum or plasma progesterone measurement (mass/volume)Ordered By: Brain Way on 12-27-2023 Progesterone [Mass/Vol] 13.3 ng/mL . [facility] Comment on above: Follicular phase 0.1 - 0.9 Luteal phase 1.8 - 23.9 Ovulation phase 0.1 - 12.0 First trimester 11.0 - 44.3 Second trimester 25.4 - 83.3 Third trimester 58.7 - 214.0 Postmenopausal 0.0 - 0.1Performed at: [facility] [id number] Director: Alexis Ashton PhD, Phone: [phone] Progesteroneon 11-30-2023 Progesterone 16.9 ng/mL Normal . [facility] Comment on above: Result Comment: Foll icular phase 0.1 - 0.9 Luteal phase 1.8 - 23.9 Ovulation phase 0.1 - 12.0 First trimester 11.0 - 44.3 Second trimester 25.4 - 83.3 Third trimester 58.7 - 214.0 Postmenopausal 0.0 - 0.1 Performed at: [address] [id number] Fire Protection Equipment Technician: Alexis Ashton PhD, Phone: [phone] PERFORMED BY: [place] [address] [address] [place] [id number] PATHOLOGIST STEAM DRIER OPERATOR JORDI SMITH M.D. Performed By: #### P ANTHONY ####[facility] , Serum or plasma progesterone measurement (mass/volume)Ordered By: Brain Way on 11-30-2023 Progesterone [Mass/Vol] 16.9 ng/mL . [facility] Comment on above: Follicular phase 0.1 - 0.9 Luteal phase 1.8 - 23.9 Ovulation phase 0.1 - 12.0 First trimester 11.0 - 44.3 Second trimester 25.4 - 83.3 Third trimester 58.7 - 214.0 Postmenopausal 0.0 - 0.1Performed at: [facility] [id number] Director: Alexis Ashton PhD, Phone: [phone] CNOVon 11-18-2023 CNOV Office Visit (ENDOMN ) -- TAWNYA HERRING ([id number]) 1995 F Date Time Provider Department 11/18/23 8:30 AM RUBY [facility]ITTINGTON During your visit today, we recorded the following information about you: Pulse Blood pressure Weight Last Period 100/minute 132/92 110.7 kg 11/09/23 [place] 11/18/2023 7:58 AM Signed Thank you for choosing the [facility] Department of Endocrinology, Diabetes and Metabolism. Did you know that you need to call 48 hours in advance of your scheduled visit, if you are unable to make your appointment? The [facility]inology [facility] Metabolism [place] thanks you for your commitment, because patients not showing to their appointment results in a lost opportunity for patients to receive [facility] health care at the [facility]. To Cancel an appointment, please choose one of the following: - Call the Appointment Call Center at [phone] - From [email or web address], Go to Appointments - Cancel Appts If cancelling, consider your need to reschedule to prevent further delays in your care. To Schedule an appointment, please choose one of the following: - Call the Appointment Call Center at [phone] - From [email or web address], Go to Appointments - Request an Appt [...] as of 11/18/2023 - cyanocobalamin/folic acid (VITAMIN W23-JGKDA ACID) 1,000-400 mcg lozg Take by mouth (more content not included)... Normal [facility] Progesteroneon 11-01-2023 Progesterone 7.1 ng/mL Normal . [facility] Comment on above: Result Comment: Foll icular phase 0.1 - 0.9 Luteal phase 1.8 - 23.9 Ovulation phase 0.1 - 12.0 First trimester 11.0 - 44.3 Second trimester 25.4 - 83.3 Third trimester 58.7 - 214.0 Postmenopausal 0.0 - 0.1 Performed at: [employer] [address] [id number] Fire Protection Equipment Technician: Alexis Ashton PhD, Phone: [phone] PERFORMED BY: [place] [address] [place] [address] PATHOLOGIST STEAM DRIER OPERATOR JORDI SMITH M.D. Performed By: #### P ANTHONY ####[facility] , Serum or plasma progesterone measurement (mass/volume)Ordered By: Brain Way on 11-01-2023 Progesterone [Mass/Vol] 7.1 ng/mL . [facility] Comment on above: Follicular phase 0.1 - 0.9 Luteal phase 1.8 - 23.9 Ovulation phase 0.1 - 12.0 First trimester 11.0 - 44.3 Second trimester 25.4 - 83.3 Third trimester 58.7 - 214.0 Postmenopausal 0.0 - 0.1Performed at: [employer] [facility] [place] [id number] Director: Alexis Ashton PhD, Phone: [phone] Serum or plasma progesterone measurement (mass/volume)Ordered By: Brain Way on 10-01-2023 Progesterone [Mass/Vol] 0.9 ng/mL . [facility] Comment on above: Follicular phase 0.1 - 0.9 Luteal phase 1.8 - 23.9 Ovulation phase 0.1 - 12.0 First trimester 11.0 - 44.3 Second trimester 25.4 - 83.3 Third trimester 58.7 - 214.0 Postmenopausal 0.0 - 0.1Performed at: [facility] [id number] [place], [place] [id number] Director: Alexis Ashton PhD, Phone: [phone] Ambulatory Visit Summaryon 0 09-29-2023 Ambulatory Visit [...] with DARWIN JONES CNP When: Where: [address] [place] [address]- Medications What How Much When Why Instructions New amoxicillin-clavulanate (Augmentin 875 mg oral tablet) 1 Tablets By Mouth Every 12 hours Sinusitis BMI 38.0-38.9,adult Duration: 10 Days Pickup at [facility] New methylPREDNISolone (Medrol Dosepack 4 mg Tab) 1 Packets By Mouth As Directed Sinusitis BMI 38.0-38.9,adult Duration: 6 Days as directed on package labeling Pickup at [facility] Unchanged citalopram (CeleXA 20 mg Tab) 1 Tablets By Mouth Every day Contact prescribing physician if questions or concerns Unchanged citalopram (citalopram 20 mg Tab) Contact prescribing physician if questions or concerns Unchanged pyridoxine (Vitamin B6 100 mg Tab) By Mouth Every day Contact prescribing physician if questions or concerns Pharmacy Information [facility]: [address] [place] [id number] [phone] Allergies No Known Allergies No Known Medication [...] choosing us for your care. Normal [facility]Cl[facility] c Noteon 09-29-2023 [...] with voice recognition software. Occasional wrong-word or ?uaelr-v-nufx? substitutions may have occurred due to the [...] with improvement. She does not use any lgiy-hsk-zsoypnf Flonase and has not tried any other [...] day(s), # 20 tab(s), Refills(s) 0, Pharmacy: [facility], 170.2, cm, 09/29/23 10:44:00 EST, Height/Length Dosing, 112, kg, 09/29/23 10:44:00 EST, Weight Dosing methylPREDNISolone, = 1 packet(s), Oral, As Directed, as directed on package labeling, X 6 day(s), # 21 tab(s), Refills(s) 0, Pharmacy: [facility], 170.2, cm, 09/29/23 10:44:00 EST, Height/Length Dosing, 112, kg, 09/29/23 10:44:00 EST, Weight Dosing 2. BMI 38.0-38.9,adult (Z68.38: Body mass index [BMI] 38.0-38.9, adult) The standard range for ages 18 and olde (more content not included)... Normal [facility] Comment on above: Result Comment: [...] ? Medicines that treat allergies (antihistamines). ? Wuyg-ccw-ayjmlat pain relievers. ? If caused by bacteria, [...] home: Medicines ? 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 ? Do not smoke. Avoid being around people who are smoking (secondhand smoke). ? Keep all follow-up visits. This is important. Contact a health care provider if: ? You have a fever. ? Your symptoms get (more content not included)... Normal [facility] CNPNon 07-16-2023 CNPN Telephone (ENDCMN) -- TAWNYA HERRING ([id number]) 1995 F Date Time Provider Department 07/16/23 [...] Encounter Status:Closed by KENAN GOMEZ on 07/16/23 Normal [facility] CNOVon 06-08-2023 CNOV Office Visit (OTOLLN ) -- TAWNYA HERRING ([id number]) 1995 F Date Time Provider Department 06/08/23 [...] will be in touch with results via [employer] HPI: Tawnya is a 27 year old [...] Low Allergies (more content not included)... Normal [facility] Alanine aminotransferase [En zymatic activity/volume] in Serum or PlasmaOrdered By: Addi Ortega on 04-08-2023 ALT [Catalytic activity/Vol] 28 U/L 7-52 [facility] Albumin [Mass/volume] in Ser um or Plasma by Bromocresol green (BCG) dye binding methoOrdered By: Addi Ortega on 04-08-2023 Albumin BCG dye [Mass/Vol] 4.8 g/dL 3.5-5.7 [facility] Alkaline phosphatase [Enzyma tic activity/volume] in Serum or PlasmaOrdered By: Addi Ortega on 04-08-2023 ALP [Catalytic activity/Vol] 61 U/L 34-104 [facility] Aspartate aminotransferase [ Enzymatic activity/volume] in Serum or PlasmaOrdered By: Addi Ortega on 04-08-2023 AST [Catalytic activity/Vol] 13 U/L 13-39 [facility] Basophils Auto (Bld) [#/Vol] Ordered By: Addi Ortega on 04-08-2023 Basophils (Bld) [#/Vol] 0.0 10*3/uL 0.0-0.2 [facility] Basophils/100 WBC Auto (Bld) Ordered By: Addi Ortega on 04-08-2023 Basophils/100 WBC (Bld) 0.4 % . [facility] Bilirubin.total [Mass/volume ] in Serum or PlasmaOrdered By: Addi Ortega on 04-08-2023 Bilirubin [Mass/Vol] 0.4 mg/dL 0.3-1.0 [facility] Calcium [Mass/volume] in Ser um or PlasmaOrdered By: Addi Ortega on 04-08-2023 Calcium [Mass/Vol] 9.5 mg/dL 8.6-10.3 [facility] Carbon dioxide, total [Moles /volume] in Serum or PlasmaOrdered By: Addi Ortega on 04-08-2023 CO2 [Moles/Vol] 25.4 mmol/L 21.0-31.0 [facility] Chloride [Moles/volume] in S ghada or PlasmaOrdered By: Addi Ortega on 04-08-2023 Chloride [Moles/Vol] 106 mmol/L 98-107 [facility] Cholesterol [Mass/volume] in Serum or PlasmaOrdered By: Addi Ortega on 04-08-2023 Cholesterol [Mass/Vol] 162 mg/dL 140-200 [facility] Comment on above: Chol less than 200 m g/dl low riskChol 201-239 mg/dl borderline riskChol 240 mg/dl and greater high risk Cholesterol in LDL Calc [Mas s/Vol]Ordered By: Addi Ortega on 04-08-2023 Cholesterol in LDL [Mass/Vol] 99 mg/dL 0-100 [facility] Comment on above: LDL ATP III CLASSIFI CATIONLDL less than 100 mg/dL OptimalLDL 100-129 mg/dL Near or above optimalLDL 130-159 mg/dL Borderline highLDL 160-189 mg/dL HighLDL greater than 189 mg/dL Very high Cholesterol in VLDL Calc [Ma ss/Vol]Ordered By: Addi Ortega on 04-08-2023 Cholesterol in VLDL [Mass/Vol] 18 mg/dL [facility] Creatinine [Mass/volume] in Serum or PlasmaOrdered By: Addi Ortega on 04-08-2023 Creatinine [Mass/Vol] 0.59 mg/dL 0.60-1.20 [facility] Eosinophils Auto (Bld) [#/Vo l]Ordered By: Addi Ortega on 04-08-2023 Eosinophils (Bld) [#/Vol] 0.1 10*3/uL 0.0-0.45 [facility] Eosinophils/100 WBC Auto (Bl d)Ordered By: Addi Ortega on 04-08-2023 Eosinophils/100 WBC (Bld) 1.3 % . [facility] Erythrocyte distribution wid th Auto (RBC) [Ratio]Ordered By: Addi Ortega on 04-08-2023 Erythrocyte distribution width (RBC) [Ratio] 12.6 % 11.9-15.3 [facility] Globulin Calc (S) [Mass/Vol] Ordered By: Addi Ortega on 04-08-2023 Globulin (S) [Mass/Vol] 2.7 g/dL [facility] Glucose [Mass/volume] in Ser um or PlasmaOrdered By: Addi Ortega on 04-08-2023 Glucose [Mass/Vol] 83 mg/dL 70-100 [facility] Hematocrit Auto (Bld) [Volum e fraction]Ordered By: Addi Ortega on 04-08-2023 Hematocrit (Bld) [Volume fraction] 39.3 % 34.0-46.4 [facility] Hemoglobin [Mass/volume] in BloodOrdered By: Addi Ortega on 04-08-2023 Hemoglobin (Bld) [Mass/Vol] 13.6 g/dL 11.8-15.4 [facility] Leukocytes [#/volume] correc hamilton for nucleated erythrocytes in Blood by Automated counOrdered By: Addi Ortega on 04-08-2023 WBC corrected for nucl RBC Auto (Bld) [#/Vol] 7.6 10*3/uL 3.8-11.6 [facility] Lymphocytes Auto (Bld) [#/Vo l]Ordered By: Addi Ortega on 04-08-2023 Lymphocytes (Bld) [#/Vol] 2.9 10*3/uL 1.00-4.8 [facility] Lymphocytes/100 WBC Auto (Bl d)Ordered By: Addi Ortega on 04-08-2023 Lymphocytes/100 WBC (Bld) 38.6 % . [facility] MCH Auto (RBC) [Entitic mass ]Ordered By: Addi Ortega on 04-08-2023 MCH (RBC) [Entitic mass] 31.6 pg 24.7-34.3 [facility] MCHC Auto (RBC) [Mass/Vol]Or dered By: Addi Ortega on 04-08-2023 MCHC (RBC) [Mass/Vol] 34.5 g/dL 32.0-35.0 [facility] MCV Auto (RBC) [Entitic vol] Ordered By: Addi Ortega on 04-08-2023 MCV (RBC) [Entitic vol] 91.7 fL 80-100 [facility] Monocytes Auto (Bld) [#/Vol] Ordered By: Addi Ortega on 04-08-2023 Monocytes (Bld) [#/Vol] 0.4 10*3/uL 0.0-0.8 [facility] Monocytes/100 WBC Auto (Bld) Ordered By: Addi Ortega on 04-08-2023 Monocytes/100 WBC (Bld) 5.8 % . [facility] Neutrophils Auto (Bld) [#/Vo l]Ordered By: Addi Ortega on 04-08-2023 Neutrophils (Bld) [#/Vol] 4.1 10*3/uL 1.8-7.7 [facility] Neutrophils/100 WBC Auto (Bl d)Ordered By: Addi Ortega on 04-08-2023 Neutrophils/100 WBC (Bld) 53.9 % . [facility] No Panel InformationOrdered By: Addi Ortega on 04-08-2023 Estimated GFR (CKD-EPI) > 60.0 mL/Min [facility] Nicotine Metabolite Negative Cutoff=25 [facility] Comment on above: Performed at: - L [address] [id number] Director: Catherine Mendoza MD, Phone: [phone] Pharmacy Creatinine Clearance (Chem N/A [facility] Nucleated erythrocytes [Pres ence] in Blood by Automated countOrdered By: Addi Ortega on 04-08-2023 Nucleated RBC Auto Ql (Bld) 0.0 /100{WBC} 0-0.5 [facility] Platelet mean volume Auto (B ld) [Entitic vol]Ordered By: Addi Ortega on 04-08-2023 Platelet mean volume (Bld) [Entitic vol] 8.6 fL 6.3-10.7 [facility] Platelets Auto (Bld) [#/Vol] Ordered By: Addi Ortega on 04-08-2023 Platelets (Bld) [#/Vol] 361 10*3/uL 150-450 [facility] Potassium [Moles/volume] in Serum or PlasmaOrdered By: Addi Ortega on 04-08-2023 Potassium [Moles/Vol] 4.6 mmol/L 3.5-5.1 [facility] Protein [Mass/volume] in Ser um or PlasmaOrdered By: Addi Ortega on 04-08-2023 Protein [Mass/Vol] 7.5 g/dL 6.4-8.9 [facility] RBC Auto (Bld) [#/Vol]Ordere d By: Addi Ortega on 04-08-2023 RBC (Bld) [#/Vol] 4.29 10*6/uL 3.60-5.00 [facility] Serum or plasma albumin/glob ulin mass ratioOrdered By: Addi Ortega on 04-08-2023 Albumin/Globulin [Mass ratio] 1.8 {ratio} [facility] Serum or plasma anion gap de terminationOrdered By: Adid Ortega on 04-08-2023 Anion gap [Moles/Vol] 12.2 mmol/L 6.0-15.0 [facility] Serum or plasma high density lipoprotein (HDL) cholesterol measurementOrdered By: Addi Ortega on 04-08-2023 Cholesterol in HDL [Mass/Vol] 45 mg/dL 23-92 [facility] Comment on above: HDL CHOL ATP-III CLA SSIFICATION Cardiovascular RiskHDL > or equal to 60 mg/dL LOWHDL < 40 mg/dL HIGH Serum or plasma total choles terol/high density lipoprotein (HDL) cholesterol mass ratOrdered By: Addi Ortega on 04-08-2023 Cholesterol.total/Cho lesterol in HDL [Mass ratio] 3.6 {ratio} <5.0 [facility] Sodium [Moles/volume] in Ser um or PlasmaOrdered By: Addi Ortega on 04-08-2023 Sodium [Moles/Vol] 139 mmol/L 136-145 [facility] Thyrotropin [Units/volume] i n Serum or PlasmaOrdered By: Addi Ortega on 04-08-2023 TSH Qn 4.55 m[IU]/L 0.45-5.33 [facility] Triglyceride [Mass/volume] i n Serum or PlasmaOrdered By: Addi Ortega on 04-08-2023 Triglyceride [Mass/Vol] 92 mg/dL 0-149 [facility] Comment on above: TRIG ATP III CLASSIF ICATIONTRIG less than 150 mg/dL NormalTRIG 150-199 mg/dL Borderline highTRIG 200-500 mg/dL High TRIG greater than 500 mg/dL Very highStandard traceable to the Center for Disease Conrtrol and Prevention (CDC) test method. Urea nitrogen [Mass/volume] in Serum or PlasmaOrdered By: Addi Ortega on 04-08-2023 Urea nitrogen [Mass/Vol] 18 mg/dL 7-25 [facility] WBC Auto (Bld) [#/Vol]Ordere d By: Addi Ortega on 04-08-2023 WBC (Bld) [#/Vol] 7.6 10*3/uL 3.8-11.6 [facility] C Urineon 03-24-2023 Bacteria identified Cx [...] Locations R1: This test was performed at: [facility], [address] [place] [address], [facility] , , [facility] Comment on above: Performed By: #### 2 481662, 1448100, 80741299, 2513361, 3231596, 1359869 #### [facility] [address] [place] [address] CT Abdomen/Pelvis w/o Contra db 03-23-2023 CT [...] Oral contrast amount in ml's: 0 Normal [facility] Discharge Instructionson Discharge Instructions [id number]:127 Normal [facility] ED Note-Physicianon 03-23-20 ED Note-Physician [...] any medications. States that she was at [facility], where she did wait about 5 [...] day(s), # 28 cap(s), Refills(s) 0, Pharmacy: [facility], 170.2, cm, 03/22/23 20:14:00 EDT, Height/Length Dosing, 113.5, kg, 03/22/23 20:14:00 EDT, Weight Dosing ketorolac, 30 mg = 1 mL, Injection, IV Push, Once, Stop date 03/22/23 20:51:00 EDT, STAT, Start date 03/22/23 20:51:00 EDT, 03/22/23 20:51:00 EDT ondansetron, 4 mg = 2 mL, Injection, IV Push, Once, Stop date 03/22 (more content not included)... Normal [facility] Comment on above: Result Comment: Elec tronically Signed By: Hector Correa PA-C\.br\Date and Time Signed: 03/22/23 23:35 EDT\.br\Electronically Co-Signed By: Gabriel Curtis DO.br\Date and Time Co-Signed: 03/23/23 03:21 EDT RAD - Preliminary Cat Scan R eporton 03-23-2023 RAD - Preliminary Cat Scan Report [id number]:127 Normal [facility] Auto Diffon 03-22-2023 Basophils/100 WBC (Bld) 0.5 % Normal 0.0-2.0 [facility] Comment on above: Order Comment: Order Added by Discern Expert. Performed By: #### 2 182007, 9429566, 57948198, 0983477, 5973263, 8818080 #### [facility] [address] [place] [address] Basophils/Leukocytes Auto (Bld) [Pure # fraction] 0.0 E9/L Normal 0.0-0.2 [facility] Comment on above: Order Comment: Order Added by Discern Expert. Performed By: #### 2 326198, 6585701, 49331248, 4580326, 8728624, 4434734 #### [facility] [address] [place] [address] Eosinophils/100 WBC (Bld) 1.5 % Normal 0.0-8.0 [facility] Comment on above: Order Comment: Order Added by Discern Expert. Performed By: #### 2 551488, 9838104, 47369862, 5843765, 9047445, 0268913 #### [facility] [address] [place] [address] Eosinophils/Leukocyte s Auto (Bld) [Pure # fraction] 0.1 E9/L Normal 0.0-0.5 [facility] Comment on above: Order Comment: Order Added by Discern Expert. Performed By: #### 2 281582, 1054344, 28495747, 8846153, 5569860, 1271901 #### [facility] [address] [place] [address] Lymphocytes/100 WBC (Bld) 34.9 % Normal 14.0-50.0 [facility] Comment on above: Order Comment: Order Added by Discern Expert. Performed By: #### 2 765445, 7264940, 43506616, 3142108, 5777164, 4255298 #### [facility] [address] [place] [address] Lymphocytes/Leukocyte s Auto (Bld) [Pure # fraction] 3.4 E9/L Normal 1.0-4.0 [facility] Comment on above: Order Comment: Order Added by Discern Expert. Performed By: #### 2 199421, 6038607, 41091448, 1821761, 3894248, 4426269 #### [facility] [address] [place] [address] Monocytes/100 WBC (Bld) 6.0 % Normal 4.0-14.0 [facility] Comment on above: Order Comment: Order Added by Discern Expert. Performed By: #### 2 687290, 8148721, 06798779, 1813462, 6023272, 9112160 #### [facility] [address] [place] [address] Monocytes/Leukocytes Auto (Bld) [Pure # fraction] 0.6 E9/L Normal 0.2-1.0 [facility] Comment on above: Order Comment: Order Added by Discern Expert. Performed By: #### 2 649864, 9836583, 30839879, 0622037, 5235293, 9115595 #### [facility] [address] [place] [address] Neutrophils/100 WBC (Bld) 57.1 % Normal 36.0-75.0 [facility] Comment on above: Order Comment: Order Added by Discern Expert. Performed By: #### 2 022493, 6282232, 76628908, 6759188, 6062704, 2651173 #### [facility] [address] [place] [address]4553 Neutrophils/Leukocyte s Auto (Bld) [Pure # fraction] 5.6 E9/L Normal 2.0-7.5 [facility] Comment on above: Order Comment: Order Added by Discern Expert. Performed By: #### 2 521234, 4714310, 70753833, 2071259, 3591428, 4817517 #### [facility] [address] [place] [address] BMPon 03-22-2023 Creatinine [Mass/Vol] 0.5 mg/dL Normal 0.5-1.3 [facility] Comment on above: Performed By: #### 2 312959, 0990927, 65463829, 3230876, 4979447, 2790157 #### [facility] [address] [place] [address]8589 Urea nitrogen [Mass/Vol] 15 mg/dL Normal 5-21 [facility] Comment on above: Performed By: #### 2 258510, 1738507, 08800436, 8819819, 7870134, 5875504 #### [facility] [address] [place] [address] Urea nitrogen/Creatinine [Mass ratio] 30 No Units High 10-20 [facility] Comment on above: Performed By: #### 2 141713, 5068114, 88716931, 1230985, 1119411, 2078525 #### [facility] [address] [place] [address] Anion gap [Moles/Vol] 15 mmol/L Normal 6-16 [facility] Comment on above: Performed By: #### 2 308754, 5435505, 77233495, 9839502, 5928734, 4561118 #### [facility] [address] [place] [address] Calcium [Mass/Vol] 9.6 mg/dL Normal 8.9-11.1 [facility] Comment on above: Performed By: #### 2 332834, 1678869, 86880925, 4042039, 9419952, 1844705 #### [facility] [address] [place] [address] Chloride [Moles/Vol] 103 mmol/L Normal 101-111 [facility] Comment on above: Performed By: #### 2 134040, 7326647, 36273581, 3010974, 6865576, 4567065 #### [facility] [address] [place] [address] CO2 [Moles/Vol] 23 mmol/L Normal 21-31 [facility] Comment on above: Performed By: #### 2 674204, 0194191, 69211608, 4030634, 9498361, 8523041 #### [facility] [address] [place] [address] Glucose [Mass/Vol] 84 mg/dL Normal 55-199 [facility] Comment on above: Result Comment: If t his glucose result represents a fasting glucose, interpretation should refer to the following reference range: 55-99 mg/dL Performed By: #### 2 073983, 3424484, 66373805, 0873081, 7773248, 7237719 #### [facility] [address] [place] [address] Potassium [Moles/Vol] 3.7 mmol/L Normal 3.5-5.3 [facility] Comment on above: Performed By: #### 2 461212, 8932236, 93757810, 6085069, 5387735, 4218281 #### [facility] [address] [place] [address] Sodium [Moles/Vol] 137 mmol/L Normal 135-145 [facility] Comment on above: Performed By: #### 2 346488, 2787690, 46652097, 7945661, 4381905, 4615973 #### [facility] [address] [place] [address] CBC w/ Auto Diffon 3 Erythrocyte distribution width (RBC) [Ratio] 12.5 % Normal 10.9-14.2 [facility] Comment on above: Performed By: #### 2 707826, 3065002, 23659534, 2277921, 5265092, 0698814 #### [facility] [address] [place] [address] Hematocrit (Bld) [Volume fraction] 37.7 % Normal 34.0-46.0 [facility] Comment on above: Performed By: #### 2 149685, 3032833, 80668164, 4691310, 6042304, 9757482 #### [facility] [address] [place] [address] Hemoglobin (Bld) [Mass/Vol] 13.1 g/dL Normal 12.0-16.0 [facility] Comment on above: Performed By: #### 2 827935, 7221417, 77136697, 3092061, 9025800, 4517417 #### [facility] [address] [place] [address] MCH (RBC) [Entitic mass] 31.9 pg Normal 27.0-34.0 [facility] Comment on above: Performed By: #### 2 072667, 7558592, 86649670, 7786288, 7753054, 6510401 #### [facility] [address] [place], [place] [address] MCHC (RBC) [Mass/Vol] 34.8 g/dL Normal 31.4-36.0 [facility] Comment on above: Performed By: #### 2 203827, 1696202, 96386110, 7863646, 9187133, 5791953 #### [facility] [address] [place] [address]37 MCV (RBC) [Entitic vol] 91.6 fL Normal 80.0-100.0 [facility] Comment on above: Performed By: #### 2 902803, 2288749, 17732354, 7333397, 3340317, 1542235 #### [facility] [address] [place] [address] Platelet mean volume (Bld) [Entitic vol] 7.6 fL Normal 6.4-10.8 [facility] Comment on above: Performed By: #### 2 473414, 0850594, 77047620, 8749889, 1623180, 8736155 #### [facility] [address] [place] [address] Platelets (Bld) [#/Vol] 306.0 E9/L Normal 150.0-500. 0 [facility] Comment on above: Performed By: #### 2 452675, 9717768, 97305452, 6351528, 0884269, 7762613 #### [facility] [address] [place] [address] 57589 RBC (Bld) [#/Vol] 4.1 E12/L Low 4.3-5.9 [facility] Comment on above: Performed By: #### 2 329177, 1555304, 43080269, 1447866, 9729312, 3077863 #### [facility] [address] [place] [address] WBC corrected for nucl RBC Auto (Bld) [#/Vol] 9.8 E9/L Normal 4.0-11.0 [facility] Comment on above: Performed By: #### 2 900099, 0970901, 64174348, 9356513, 5861472, 8988955 #### [facility] [address] [place] [address] CHEMISTRYOrdered By: SYSTEM SYSTEM on 03-22-2023 Albumin [...] Consent for Treatmenton Consent for Treatment [id number]:127 Normal [facility] ED Clinical Summaryon 2022 ED Clinical Summary (Inserted Image. Hayley ble to display) [place] [id number] ED Clinical Summary Person Information Name: TAWNYA HERRING [facility] Age: 27 Years : 1995 Sex: Female Language: Burmese PCP: DARWIN JONES CNP Marital Status: Single Phone: [phone] Visit Id: Visit Reason: Dysuria; Nausea; Flank [...] 03/22/2023 22:52:44 03/22/2023 22:52:44 03/22/2023 22:52:44 ADDRESS: [address] [place] [phone] PHYS DOC NOTES: MEDICAL INFORMATION: Prescriptions Given: New Medications [facility], [address] [place] [id number], [phone] cephalexin (Keflex 500 mg Cap) 1 Capsules By Mouth every 6 hours for 7 Days. Refills: 0. Medications to Continue with No Changes Other Medications acetaminophen-hydrocodone ([place] 325 mg-5 mg oral tablet) 2 [...] EDUCATION INFORMATION: Instructions: Urinary Tract Infection, Adult, Jtha-hl-Qmvb Follow up: With: Address: When: DARWIN [address] [phone] Business (1) In 3 days 03/25/2023 Comments: Follow-up with your primary care provider in 3 to 5 days. If symptoms worsen, do not improve, or new symptoms arise please report back to emergency department for further evaluation. DIAGNOSIS: UTI (urinary tract infection) Normal [facility] ED Patient Education Noteon 03-22-2023 ED Patient [...] these instructions at home: Medicines ? Take bost-gek-wscshka and prescription medicines only as told by [...] Reviewed: 03/14/2021 Elsevier Patient Education ? 2022 CriticalBlue. Normal [facility] ED Patient Summaryon 023 ED Patient Summary (Inserted Image. Hayley ble to display) [place] [id number] Patient Discharge Instructions Person Information Name: TAWNYA HERRING Age: 27 Years Arrival Date: 03/22/2023 19:52:37 Discharge Diagnosis: UTI (urinary tract infection) Primary Care Physician: DARWIN JONES CNP Provider Information Primary Provider: Gabriel Curtis DO Advanced Support Associate:None The exam and treatment you received in the Emergency Department were for an urgent problem and are not intended as complete care. It is important that you follow up with a doctor, nurse practitioner, or physician?s preschool teacher assistant for ongoing care. If your symptoms [...] Follow-up Instructions: With: Address: When: DARWIN JONES [address] [place] [address] [place] [phone] Business (1) In 3 days 03/25/2023 Comments: [...] Patient Education Materials: Urinary Tract Infection, Adult, Lnui-ax-Fzjo A MESSAGE TO ALL PATIENTS REGARDING OPIOIDS PRESCRIPTION OPIOIDS: WHAT YOU NEED TO KNOW Prescription opioids can be used to help relieve emesiwvz-rz-izalnm pain and are often prescribed following a [...] of op (more content not included)... Normal [facility] HEMATOLOGYOrdered By: SYSTEM SYSTEM on 03-22-2023 Basophils/100 [...] 03-22-2023 Albumin [Mass/Vol] 4.2 g/dL Normal 3.3-5.0 [facility] Comment on above: Performed By: #### 2 901871, 1347992, 02440470, 2737748, 9048410, 1546242 #### [facility] [address] [place] [address] Albumin/Globulin (S) [Mass conc ratio] 1.4 Normal 1.1-2.2 [facility] Comment on above: Performed By: #### 2 642843, 8354741, 56073959, 0241309, 2341519, 2010757 #### [facility] [address] [place] [address] ALP [Catalytic activity/Vol] 54 Int._Unit/L Normal 21-98 [facility] Comment on above: Performed By: #### 2 688227, 1846869, 91630620, 2690336, 8389682, 3919356 #### [facility] [address] [place] [address] ALT No additional P-5'-P [Catalytic activity/Vol] 24 Int._Unit/L Normal 6-46 [facility] Comment on above: Performed By: #### 2 698630, 8016887, 44988331, 1542816, 0433225, 9651834 #### [facility] [address] [place] [address] 72068 AST [Catalytic activity/Vol] 18 Int._Unit/L Normal 5-43 [facility] Comment on above: Performed By: #### 2 561770, 5161241, 99420202, 7733592, 9385326, 7501853 #### [facility] [address] [place] [address] Bilirubin [Mass/Vol] 0.7 mg/dL Normal 0.0-1.1 [facility] Comment on above: Performed By: #### 2 899732, 2982177, 17952719, 8105790, 8008810, 1435570 #### [facility] [address] [place] [address] Bilirubin.direct [Mass/Vol] 0.1 mg/dL Normal 0.1-0.4 [facility] Comment on above: Performed By: #### 2 016141, 8761549, 35426801, 6896579, 7275905, 1446650 #### [facility] [address] [place] [address] Bilirubin.indirect [Mass or moles/Vol] 0.6 mg/dL Normal 0.1-0.9 [facility] Comment on above: Performed By: #### 2 975479, 4076735, 36625130, 3569477, 1471065, 3975232 #### [facility] [address] [place] [address] Globulin (S) [Mass/Vol] 3.1 g/dL Normal 1.4-4.0 [facility] Comment on above: Performed By: #### 2 772496, 6189612, 04752572, 2315048, 4614572, 4890028 #### [facility] [address] [place] [address] Protein [Mass/Vol] 7.3 g/dL Normal 6.0-7.8 [facility] Comment on above: Performed By: #### 2 187447, 6485461, 04938828, 5819195, 6713296, 0566747 #### [facility] [address] [place] [address] Lipase Levelon 03-22-2023 Lipase [Catalytic activity/Vol] 28 U/L Normal 13-58 [facility] Comment on above: Performed By: #### 2 624077, 8112432, 05084743, 1887263, 2159390, 3621904 #### [facility] [address] [place] [address] SEROLOGYOrdered By: Lucina Shaikh on 03-22-2023 HCG.beta subunit (U) [Moles/Vol] Negative Normal [facility] Man Sero U BetaHcg [place] 03-22-2023 HCG.beta subunit (U) [Moles/Vol] Negative Normal [facility] Comment on above: Performed By: #### 2 022928, 3762154, [id number], 7066112, 8865170, 3268417 #### [facility] [address] [place] [address] UA With Cult Reflexon 2022 Bacteria LM Ql (Urine sed) TRACE Normal Trace [facility] Comment on above: Performed By: #### 2 590745, 3293666, 08270148, 9175543, 9560297, 2329725 #### [facility] [address] [place] [address] Bilirubin Ql (U) Negative Normal Negative [facility] Comment on above: Performed By: #### 2 221111, 3328653, 95589548, 5957165, 9928119, 5721080 #### [facility] [address] [place] [address] Clarity (U) SL CLOUDY Abnormal Clear [facility] Comment on above: Performed By: #### 2 401168, 7112706, 78067461, 9650976, 6306719, 9362361 #### [facility] [address] [place] [address] Color (U) YELLOW Normal Yellow [facility] Comment on above: Performed By: #### 2 021082, 5876288, 94822169, 5705860, 7395454, 2308065 #### [facility] [address] [place] [address] Crystals LM Ql (Urine sed) Present Normal [facility] Comment on above: Performed By: #### 2 760425, 5693918, 53524388, 8826462, 1055433, 0541752 #### [facility] [address] [place] [address] Epithelial cells.squamous LM.HPF (Urine sed) [#/Area] 0-2 Normal 0-2 [facility] Comment on above: Performed By: #### 2 470972, 1119721, 05531211, 0763424, 8491276, 4979951 #### [facility] [address] [place] [address] Glucose Test strip (U) [Mass/Vol] Negative Normal Negative [facility] Comment on above: Performed By: #### 2 364490, 2201816, 64329356, 0620466, 7511035, 5711066 #### [facility] [address] [place] [address] Hemoglobin Ql (U) 2+ Abnormal Negative [facility] Comment on above: Performed By: #### 2 376507, 2921965, 44371672, 4528417, 6260704, 8346488 #### [facility] [address] [place] [address] Ketones (U) [Mass/Vol] 1+ Abnormal Negative [facility] Comment on above: Performed By: #### 2 769334, 1612574, 86316845, 6347086, 9253263, 6795728 #### [facility] [address] [place] [address] [place].plasma/Lithiu m.RBC (Bld) [Mass ratio] 0-3 Normal 0-3 [facility] Comment on above: Performed By: #### 2 305584, 4530946, 86753988, 9782786, 2365065, 6642222 #### [facility] [address] [place] [address] Mucus Ql (Urine sed) TRACE Normal [facility] Comment on above: Performed By: #### 2 999574, 1442615, 70969820, 6938493, 6868690, 0884816 #### [facility] [address] [place] [address] Nitrite Ql (U) Negative Normal Negative [facility] Comment on above: Performed By: #### 2 816693, 2101860, 01881985, 8377042, 0621870, 0279344 #### [facility] [address] [place] [address] pH (U) 5.5 [pH] Invalid Interpretation Code 5.0-9.0 [facility] Comment on above: Performed By: #### 2 852911, 6357442, 28953446, 3983133, 8023177, 7067196 #### [facility] [address] [place] [address] Protein (U) [Mass/Vol] Negative Normal Negative [facility] Comment on above: Performed By: #### 2 387585, 5882440, 18533614, 8210447, 4702483, 7073948 #### [facility] [address] [place] [address] Specific gravity (U) [Rel density] >=1.030 Invalid Interpretation Code 1.005-1.03 0 [facility] Comment on above: Performed By: #### 2 245517, 8076746, 60662724, 6978690, 9013520, 4851718 #### [facility] [address] [place] [address] Type of Urine collection method Clean Catch Normal [facility] Comment on above: Performed By: #### 2 647457, 4675299, 32419203, 3602506, 2199924, 3412900 #### [facility] [address] [place], [place] [address] Urobilinogen Qn (U) 0.2 {Aly'U}/dL Normal 0.0-1.0 [facility] Comment on above: Performed By: #### 2 805333, 2593914, 05727592, 9619028, 2016266, 4631057 #### [facility] [address] [place] [address] WBC Auto Ql (U) 2+ Abnormal Negative [facility] Comment on above: Performed By: #### 2 934977, 7659932, 21203524, 6151690, 9114211, 7960123 #### [facility] [address] [place] [address] WBC LM.HPF (Urine sed) [#/Area] 16-25 Abnormal 0-5 [facility] Comment on above: Performed By: #### 2 890633, 7743355, 61917256, 6316152, 2032103, 3461959 #### [facility] [address] [place] [address] URINALYSISOrdered By: Elizabeth Shaikh on 03-22-2023 Bacteria [...] Interpretation Code Negative [facility] UA Auto SS [place].plasma/Lithiu m.RBC (Bld) [Mass ratio] 0-3 /HPF Normal [...] [facility] UA Auto SS Urobilinogen Qn (U) 0.2943934 {Aly'U}/dL Normal 0.0 - 1.0 EU/dL [facility] UA Auto SS WBC Auto Ql (U) 2+ *ABN* (03/22/23 8:17 PM) Invalid Interpretation Code Negative [facility] UA Auto SS WBC LM.HPF (Urine sed) [#/Area] 16-25 /HPF Invalid Interpretation Code 0-5/HPF [facility] UA Auto SS eGFRon 03-22-2023 GFR/1.73 sq M.predicted among non-blacks MDRD (S/P/Bld) [Vol rate/Area] 133 mL/min/1.73 m2 Normal >=59 [facility] Comment on above: Order Comment: Order added by Discern Expert. Result Comment: Fruit Or Nut Grower vinh kidney disease could be indicated at eGFR's of less than 60 mL/min/1.73m2. Kidney failure is indicated at less than 15 mL/min/1.73m2. Performed By: #### 2 527431, 7490312, 65660333, 8105422, 2960657, 0630529 #### [facility] [address] [place] [address] Alanine aminotransferase [En zymatic activity/volume] in Serum or PlasmaOrdered By: Zurdo Ortega on 02-28-2023 ALT [Catalytic activity/Vol] 21 U/L 7-52 [facility] HIV 1 and HIV-2 antibody ass ay with HIV-1 p24 antigen detectionOrdered By: Zurdo Ortega on 02-28-2023 HIV 1+2 Ab+HIV1 p24 Ag IA Ql Non-Reactive Non Reactive [facility] Comment on above: HIV NegativeHIV-1/HI V-2 antibodies and HIV-1 p24 antigen were NOTdetected. There is no laboratory evidence of HIV infection. Hepatitis B virus surface Ag [Presence] in Serum or Plasma by ImmunoassayOrdered By: Zurdo Ortega on 02-28-2023 HBV surface Ag IA Ql Negative Negative [facility] Comment on above: Performed at: [address] [id number] Director: Alexis Ashton PhD, Phone: [phone] Hepatitis C virus IgG Ab [Pr esence] in Serum or Plasma by ImmunoassayOrdered By: Zurdo Ortega on 02-28-2023 HCV IgG IA Ql Non-Reactive Non Reactive [facility] No Panel InformationOrdered By: Zurdo Ortega on 02-28-2023 Hepatitis C Interpretation See comment . [facility] Comment on above: Not infected with HC V unless early or acute infection issuspected (which may be delayed in an immunocompromisedindividual), or other evidence exists to indicate HCVinfection. Serum hepatitis B virus surf nikolas antibody detectionOrdered By: Zurdo Ortega on 02-28-2023 HBV surface Ab Ql (S) Reactive . [facility] Comment on above: Non Reactive: Incons istent with immunity, less than 10 mIU/mL Reactive: Consistent with immunity, greater than 9.9 mIU/mL PAP ACOG PANEL 2: 21 to 29on 12-17-2022 . . Normal [facility] Comment on above: Performed By: #### 4 749533 #### [facility] [address] [address] [address] Regine Fortune Age Gdln ACOG Testing - [facility] Comment on above: Performed By: #### 4 797171 #### [facility] [address] [address] [address] Regine Fortune DIAGNOSIS: Comment [facility] Comment on above: Result Comment: NEGA TIVE FOR INTRAEPITHELIAL LESION OR MALIGNANCY. Performed By: #### 4 087231 #### [facility] [address] [address] [address] Regine Fortune Methodology: Comment [facility] Comment on above: Result Comment: This liquid based ThinPrep(R) pap test was screened with the use of an image guided system. Performed By: #### 4 [id number] #### [facility] [address] [address] [address] Regine Fortune Note: Comment [facility] Comment on above: Result Comment: The Pap smear is a screening test designed to aid in the detection of premalignant and malignant conditions of the uterine cervix. It is not a diagnostic procedure and should not be used as the sole means of detecting cervical cancer. Both false-positive and false-negative reports do occur. . Performed By: #### 4 [id number] #### [facility] [address] [address] [address] Regine Fortune Performed by: Comment Normal [facility] Comment on above: Result Comment: Amna Hernandes Gettering Filament Machine Operator (ASCP) Performed By: #### 4 205352 #### [facility] [address] [place] [address] Dr. Regine Fortune Reflex Criteria: Comment Normal [facility] Comment on above: Result Comment: The HPV DNA reflex criteria were not met with this specimen result therefore, no HPV testing was performed. . Performed By: #### 4 248824 #### [facility] [address] [address] [address] Regine Fortune Specimen adequacy: Comment Normal [facility] Comment on above: Result Comment: Sati sfactory for evaluation. Endocervical and/or squamous metaplastic cells (endocervical component) are present. Areas of partially obscuring inflammatory exudate are present. Performed By: #### 4 [id number] #### [facility] [address] [place] [address] Dr. Regine Fortune Thyrotropin [Units/volume] i n Serum or PlasmaOrdered By: Brain Way on 12-10-2022 TSH Qn 2.86 m[IU]/L 0.45-5.33 [facility] Thyroxine (T4) free [Mass/vo lume] in Serum or PlasmaOrdered By: Brain Way on 12-10-2022 Free T4 [Mass/Vol] 0.94 ng/dL 0.61-1.12 [facility] Albumin [Mass/volume] in Ser um or PlasmaOrdered By: Ofelia Hester on 10-16-2022 Albumin [Mass/Vol] 4.1 g/dL 3.2-5.5 [facility] Alkaline phosphatase [Enzyma tic activity/volume] in Serum or PlasmaOrdered By: Ofelia Hester on 10-16-2022 ALP [Catalytic activity/Vol] 56 U/L 32-92 [facility] Amylaseon 10-16-2022 Amylase 43 U/L Normal 28-100 U/L [facility] Amylase [Enzymatic activity/ volume] in Serum or PlasmaOrdered By: Ofelia Hester on 10-16-2022 Amylase [Catalytic activity/Vol] 43 U/L 28-100 [facility] Aspartate aminotransferase [ Enzymatic activity/volume] in Serum or PlasmaOrdered By: Ofelia Hester on 10-16-2022 AST [Catalytic activity/Vol] 16 U/L 10-42 [facility] Bilirubin.total [Mass/volume ] in Serum or PlasmaOrdered By: Ofelia Hester on 10-16-2022 Bilirubin [Mass/Vol] 0.6 mg/dL 0.3-1.2 [facility] Calcium [Mass/volume] in Ser um or PlasmaOrdered By: Ofelia Hester on 10-16-2022 Calcium [Mass/Vol] 9.3 mg/dL 8.2-10.2 [facility] Carbon dioxide, total [Moles /volume] in Serum or PlasmaOrdered By: Ofelia Hester on 10-16-2022 CO2 [Moles/Vol] 22.1 mmol/L 22.0-30.0 [facility] Chloride [Moles/volume] in S ghada or PlasmaOrdered By: Ofelia Hester on 10-16-2022 Chloride [Moles/Vol] 105 mmol/L 95-114 [facility] Comprehensive Metabolic Pane samy 10-16-2022 Albumin [Mass/Vol] 4.940317 g/dL Normal 3.2-5.5 g/dL [facility] ALT [Catalytic activity/Vol] 17 U/L Normal 10-60 U/L [facility] Bilirubin [Mass/Vol] 0.9662074 mg/dL Normal 0.3- 1.2 mg/dL [facility] Calcium [Mass/Vol] 9.1970488 mg/dL Normal 8.2-10 .2 mg/dL [facility] CO2 [Moles/Vol] 22.73599341 mmol/L Normal 22.0-3 0.0 mmol/L [facility] Creatinine [Mass/Vol] 0.24945422 mg/dL Normal 0. 44-1.03 mg/dL [facility] Potassium [Moles/Vol] 4.14954016 mmol/L Normal 3 .5-5.1 mmol/L [facility] Protein [Mass/Vol] 6.880154 g/dL Normal 6.1-7.9 g/dL [facility] Comprehensive Metabolic Panel > 60 [facility] Comprehensive Metabolic Panel 2.5 g/dL [facility] Creatinine and Glomerular fi ltration rate.predicted panel (S/P/Bld)Ordered By: Ofelia Hester on 10-16-2022 Creatinine [Mass/Vol] 0.55 mg/dL 0.44-1.03 [facility] Estimated glomerular filtrat ion rate (GFR) non- AmericanOrdered By: Ofelia Hester on 10-16-2022 GFR/1.73 sq M.predicted among non-blacks MDRD (S/P/Bld) [Vol rate/Area] > 60 mL/Min [facility] Globulin Calc (S) [Mass/Vol] Ordered By: Ofelia Hester on 10-16-2022 Globulin (S) [Mass/Vol] 2.5 g/dL [facility] Glucose [Mass/volume] in Ser um or PlasmaOrdered By: Ofelia Hester on 10-16-2022 Glucose [Mass/Vol] 86 mg/dL 70-100 [facility] Comment on above: ADA recommended refe rence rangeRandom Glucose Reference Range is dependent on time and content of last meal. Glucose of more than 200 mg/dL in a nonstressed, ambulatory subject supports the diagnosis of Diabetes Mellitus. Laboratory - Chemistry and C hemistry - challengeOrdered By: Ofelia Hester on 10-16-2022 Lipase [Catalytic activity/Vol] 35.0 U/L 22-51 [facility] Lipaseon 10-16-2022 Lipase [Catalytic activity/Vol] 35.44885 U/L Normal 22-51 U/L [facility] No Panel InformationOrdered By: Ofelia Hester on 10-16-2022 Estimated GFR () > 60 mL/Min [facility] Comment on above: GFR estimated refere nce range: According to KDOQI guidelines, <60 ml/min/1.73m2 is sufficient to diagnose a patient with chronic kidney disease. Pharmacy Creatinine Clearance (Chem N/A [facility] Potassium [Moles/volume] in Serum or PlasmaOrdered By: Ofelia Hester on 10-16-2022 Potassium [Moles/Vol] 4.3 mmol/L 3.5-5.1 [facility] Protein [Mass/volume] in Ser um or PlasmaOrdered By: Ofelia Hester on 10-16-2022 Protein [Mass/Vol] 6.6 g/dL 6.1-7.9 [facility] Serum or plasma alanine galaivz otransferase measurement without P-5'-P (enzymatic activiOrdered By: Ofelia Hester on 10-16-2022 ALT No additional P-5'-P [Catalytic activity/Vol] 17 U/L 10 [facility] Serum or plasma albumin/glob ulin mass ratioOrdered By: Ofelia Hester on 10-16-2022 Albumin/Globulin [Mass ratio] 1.6 {ratio} [facility] Serum or plasma anion gap de terminationOrdered By: Ofelia Hester on 10-16-2022 Anion gap [Moles/Vol] 13.2 mmol/L 6.0-15.0 [facility] Sodium [Moles/volume] in Ser um or PlasmaOrdered By: Ofelia Hester on 10-16-2022 Sodium [Moles/Vol] 136 mmol/L 136-146 [facility] Urea nitrogen [Mass/volume] in Serum or PlasmaOrdered By: Ofelia Hester on 10-16-2022 Urea nitrogen [Mass/Vol] 11 mg/dL 05-08 [facility] T4 FREE/FREE THYROXon 2021 Free T4 [Mass/Vol] 1.3 ng/dL 0.9 - 1.7 ng/dL [facility] TSH BLDon 07-14-2022 TSH Qn 2.480 m[IU]/L 0.270 - 4.200 mIU/L [facility] VITAMIN B12 BLOODon 07-14-20 Cobalamin (Vitamin B12) [Mass/Vol] 267 pg/mL 232 - 1,245 pg/mL [facility] Quick Fluon 06-04-2022 FLUAV Ab CF (S) [Titer] Negative [facility] FLUBV Ab CF (S) [Titer] Negative [facility] Quick Strepon 06-04-2022 S. pyogenes Org specific cx Ql (Throat) Negative [facility] Quick Strep [facility] SARS-CoV-2 (COVID-19) RNA NA A+probe Ql (Resp)on 06-04-2022 SARS-CoV-2 (COVID-19) RNA LAUREN+probe Ql (Unsp spec) Negative [facility] TSH DL <= 0.005 mIU/L QnOrde red By: Darwin Jones on 04-14-2022 TSH Qn 6.39 m[IU]/L 0.45-5.33 [facility] Thyroxine (T4) free [Mass/vo lume] in Serum or PlasmaOrdered By: Darwin Jones on 04-14-2022 Free T4 [Mass/Vol] 0.82 ng/dL 0.61-1.12 [facility] Triiodothyronine (T3) Free [ Mass/volume] in Serum or PlasmaOrdered By: Darwin Jones on 04-14-2022 Free T3 [Mass/Vol] 4.08 pg/mL 2.50-3.90 [facility] Serum or plasma calcium luis urement (mass/volume)Ordered By: Saad Valera on 04-06-2022 Calcium [Mass/Vol] 9.4 mg/dL 8.2-10.2 [facility] Serum or plasma intact parat hyroid hormone measurement (mass/volume)Ordered By: Saad Valera on 04-06-2022 Parathyrin.intact [Mass/Vol] 54.8 pg/mL 12-88 [facility] CHEMISTRYOrdered By: Lab ROP User on 02-18-2022 Glucose [Mass/Vol] 106 mg/dL High 55 - 99 mg/dL [facility] POC Subsection Comment on above: Result Comment: Aurelia toussaint Meter POC Device SN [id number] Invalid Interpretation Code [facility] POC Subsection POC User ID [id number] Invalid Interpretation Code [facility] POC Subsection POC Username OBINNA EPPERSON Invalid Interpretation Code [facility] POC Subsection Serum or plasma thyroglobuli n antibody assay (units/volume)Ordered By: Darwin Jones on 02-13-2022 Thyroglobulin Ab Qn 971.2 [IU]/mL 0.0-0.9 [facility] Comment on above: Thyroglobulin Antibo dy measured by [employer] Methodology Performed at: [facility] [place] [id number] Fire Protection Equipment Technician: Alexis Ashton PhD, Phone: [phone] Serum or plasma thyroperoxid ase antibody assay (units/volume)Ordered By: Darwin Jones on 02-13-2022 TPO Ab Qn 327 [IU]/mL 0-34 [facility] Thyroxine (T4) free [Mass/vo lume] in Serum or PlasmaOrdered By: Darwin Jones on 02-13-2022 Free T4 [Mass/Vol] 0.66 ng/dL 0.61-1.12 [facility] Triiodothyronine (T3) Free [ Mass/volume] in Serum or PlasmaOrdered By: Darwin Jones on 02-13-2022 Free T3 [Mass/Vol] 4.04 pg/mL 2.50-3.90 [facility] Albumin [Mass/volume] in Ser um or PlasmaOrdered By: Addi Ortega on 02-10-2022 Albumin [Mass/Vol] 4.1 g/dL 3.2-5.5 [facility] Basophils Auto (Bld) [#/Vol] Ordered By: Addi Ortega on 02-10-2022 Basophils (Bld) [#/Vol] 0.0 10*3/uL 0.0-0.2 [facility] Basophils/100 WBC Auto (Bld) Ordered By: Addi Ortega on 02-10-2022 Basophils/100 WBC (Bld) 0.4 % . [facility] Blood hemoglobin measurement (mass/volume)Ordered By: Addi Ortega on 02-10-2022 Hemoglobin (Bld) [Mass/Vol] 14.1 g/dL 11.8-15.4 [facility] Blood leukocytes automated c ount (number/volume)Ordered By: Addi Ortega on 02-10-2022 WBC (Bld) [#/Vol] 7.3 10*3/uL 4.5-11.0 [facility] Cholesterol [Mass/volume] in Serum or PlasmaOrdered By: Addi Ortega on 02-10-2022 Cholesterol [Mass/Vol] 195 mg/dL 140-200 [facility] Comment on above: Chol less than 200 m g/dl low risk Chol 201-239 mg/dl borderline risk Chol 240 mg/dl and greater high risk Cholesterol in LDL Calc [Mas s/Vol]Ordered By: Addi Ortega on 02-10-2022 Cholesterol in LDL [Mass/Vol] 113 mg/dL 0-100 [facility] Comment on above: LDL ATP III CLASSIFI CATION LDL less than 100 mg/dL Optimal LDL 100-129 mg/dL Near or above optimal LDL 130-159 mg/dL Borderline high LDL 160-189 mg/dL High LDL greater than 189 mg/dL Very high Cholesterol in VLDL Calc [Ma ss/Vol]Ordered By: Addi Ortega on 02-10-2022 Cholesterol in VLDL [Mass/Vol] 26 mg/dL [facility] Creatinine and Glomerular fi ltration rate.predicted panel (S/P/Bld)Ordered By: Addi Ortega on 02-10-2022 Creatinine [Mass/Vol] 0.71 mg/dL 0.44-1.03 [facility] Eosinophils Auto (Bld) [#/Vo l]Ordered By: Addi Ortega on 02-10-2022 Eosinophils (Bld) [#/Vol] 0.1 10*3/uL 0.0-0.45 [facility] Eosinophils/100 WBC Auto (Bl d)Ordered By: Addi Ortega on 02-10-2022 Eosinophils/100 WBC (Bld) 1.5 % . [facility] Erythrocyte distribution wid th Auto (RBC) [Ratio]Ordered By: Addi Ortega on 02-10-2022 Erythrocyte distribution width (RBC) [Ratio] 14.0 % 11.9-15.3 [facility] Estimated glomerular filtrat ion rate (GFR) non- AmericanOrdered By: Adid Ortega on 02-10-2022 GFR/1.73 sq M.predicted among non-blacks MDRD (S/P/Bld) [Vol rate/Area] > 60 mL/Min [facility] Globulin Calc (S) [Mass/Vol] Ordered By: Addi Ortega on 02-10-2022 Globulin (S) [Mass/Vol] 2.8 g/dL [facility] Hematocrit Auto (Bld) [Volum e fraction]Ordered By: Addi Ortega on 02-10-2022 Hematocrit (Bld) [Volume fraction] 40.3 % 34.0-46.4 [facility] Laboratory - Chemistry and C hemistry - challengeOrdered By: Addi Ortega on 02-10-2022 Glucose [Mass/Vol] 90 mg/dL 70-100 [facility] - Hematology and Cell countsOrdered By: Addi Ortega on 02-10-2022 Nucleated RBC/100 WBC (Bld) [Ratio] 0.1 % 0-0.5 [facility] Lymphocytes Auto (Bld) [#/Vo l]Ordered By: Addi Ortega on 02-10-2022 Lymphocytes (Bld) [#/Vol] 3.3 10*3/uL 1.00-4.8 [facility] Lymphocytes/100 WBC Auto (Bl d)Ordered By: Addi Ortega on 02-10-2022 Lymphocytes/100 WBC (Bld) 45.2 % . [facility] MCH Auto (RBC) [Entitic mass ]Ordered By: Addi Ortega on 02-10-2022 MCH (RBC) [Entitic mass] 33.0 pg 24.7-34.3 [facility] MCHC Auto (RBC) [Mass/Vol]Or dered By: Addi Ortega on 02-10-2022 MCHC (RBC) [Mass/Vol] 34.9 g/dL 32.0-35.0 [facility] MCV Auto (RBC) [Entitic vol] Ordered By: Addi Ortega on 02-10-2022 MCV (RBC) [Entitic vol] 94.6 fL 80-100 [facility] Monocyte %Ordered By: Addi Ortega on 02-10-2022 Monocyte % 134 mg/dL 35-149 [facility] Comment on above: TRIG ATP III CLASSIF ICATION TRIG less than 150 mg/dL Normal TRIG 150-199 mg/dL Borderline high TRIG 200-500 mg/dL High TRIG greater than 500 mg/dL Very high Standard traceable to the Center for Disease Conrtrol and Prevention (CDC) test method. Monocytes Auto (Bld) [#/Vol] Ordered By: Addi Ortega on 02-10-2022 Monocytes (Bld) [#/Vol] 0.5 10*3/uL 0.0-0.8 [facility] Monocytes/100 WBC Auto (Bld) Ordered By: Addi Ortega on 02-10-2022 Monocytes/100 WBC (Bld) 6.3 % . [facility] Neutrophils Auto (Bld) [#/Vo l]Ordered By: Addi Ortega on 02-10-2022 Neutrophils (Bld) [#/Vol] 3.4 10*3/uL 1.8-7.7 [facility] Neutrophils/100 WBC Auto (Bl d)Ordered By: Addi Ortega on 02-10-2022 Neutrophils/100 WBC (Bld) 46.6 % . [facility] No Panel InformationOrdered By: Addi Ortega on 02-10-2022 Estimated GFR () > 60 mL/Min [facility] Comment on above: GFR estimated refere nce range: According to KDOQI guidelines, <60 ml/min/1.73m2 is sufficient to diagnose a patient with chronic kidney disease. Nicotine Metabolite Negative Cutoff=25 [facility] Comment on above: Performed at: [address] [id number] Fire Protection Equipment Technician: Catherine Mendoza MD, Phone: [phone] Pharmacy Creatinine Clearance (Chem N/A [facility] Platelet mean volume Auto (B ld) [Entitic vol]Ordered By: Addi Ortega on 02-10-2022 Platelet mean volume (Bld) [Entitic vol] 8.4 fL 6.3-10.7 [facility] Platelets Auto (Bld) [#/Vol] Ordered By: Addi Ortega on 02-10-2022 Platelets (Bld) [#/Vol] 321 10*3/uL 150-450 [facility] Protein [Mass/volume] in Ser um or PlasmaOrdered By: Addi Ortega on 02-10-2022 Protein [Mass/Vol] 6.9 g/dL 6.1-7.9 [facility] RBC Auto (Bld) [#/Vol]Ordere d By: Addi Ortega on 02-10-2022 RBC (Bld) [#/Vol] 4.26 10*6/uL 3.60-5.00 [facility] Serum or plasma alanine galaviz otransferase measurement without P-5'-P (enzymatic activiOrdered By: Addi Ortega on 02-10-2022 ALT No additional P-5'-P [Catalytic activity/Vol] 26 U/L 10-60 [facility] Serum or plasma albumin/glob ulin mass ratioOrdered By: Addi Ortega on 02-10-2022 Albumin/Globulin [Mass ratio] 1.5 {ratio} [facility] Serum or plasma alkaline hosea sphatase measurement (enzymatic activity/volume)Ordered By: Addi Ortega on 02-10-2022 ALP [Catalytic activity/Vol] 47 U/L 32-92 [facility] Serum or plasma aspartate am inotransferase measurement (enzymatic activity/volume)Ordered By: Addi Ortega on 02-10-2022 AST [Catalytic activity/Vol] 18 U/L 10-42 [facility] Serum or plasma calcium luis urement (mass/volume)Ordered By: Addi Ortega on 02-10-2022 Calcium [Mass/Vol] 9.3 mg/dL 8.2-10.2 [facility] Serum or plasma chloride radha surement (moles/volume)Ordered By: Addi Ortega on 02-10-2022 Chloride [Moles/Vol] 99 mmol/L 95-114 [facility] Serum or plasma high density lipoprotein (HDL) cholesterol measurementOrdered By: Addi Ortega on 02-10-2022 Cholesterol in HDL [Mass/Vol] 55 mg/dL 35-85 [facility] Comment on above: HDL CHOL ATP-III CLA SSIFICATION Cardiovascular Risk HDL > or equal to 60 mg/dL LOW HDL < 40 mg/dL HIGH Serum or plasma potassium me asurement (moles/volume)Ordered By: Addi Ortega on 02-10-2022 Potassium [Moles/Vol] 4.1 mmol/L 3.5-5.1 [facility] Serum or plasma sodium measu rement (moles/volume)Ordered By: Addi Ortega on 02-10-2022 Sodium [Moles/Vol] 135 mmol/L 136-146 [facility] Serum or plasma total biliru bin measurement (mass/volume)Ordered By: Addi Ortega on 02-10-2022 Bilirubin [Mass/Vol] 0.7 mg/dL 0.3-1.2 [facility] Serum or plasma total carbon dioxide measurement (moles/volume)Ordered By: Addi Ortega on 02-10-2022 CO2 [Moles/Vol] 23.3 mmol/L 22.0-30.0 [facility] Serum or plasma total choles terol/high density lipoprotein (HDL) cholesterol mass ratOrdered By: Adid Ortega on 02-10-2022 Cholesterol.total/Cho lesterol in HDL [Mass ratio] 3.5 {ratio} <5.0 [facility] Serum or plasma urea nitroge n measurement (mass/volume)Ordered By: Addi Otrega on 02-10-2022 Urea nitrogen [Mass/Vol] 17 mg/dL 9-23 [facility] TSH DL <= 0.005 mIU/L QnOrde red By: Addi Ortega on 02-10-2022 TSH Qn 57.67 m[IU]/L 0.45-5.33 [facility] No Panel Informationon 09-03 6 {mm/hr} Normal 0-34 [facility] Heart-[place] y 250 DO Work [...] Vital Signs Recorded: 03Sep2021 10:02AMRecorded: 03Sep2021 09:55AM Uorckpyx244, LUE, Wokwhbd205, RUE, Sitting Glsoclrja29, LUE, Eouxqnj30, RUE, Sitting Heart Rate72, Apical Height5 ft 7 in Mnwjmx625 lb 9.6 oz BMI Jxiqtsrznc72.36 kg/m2 BSA Calculated2.05 Tobacco Useb) No EKG [...] Touchworks Tobacco Screening.on 022 Tobacco use status [facility] b) No -[facility] Heart-[place] 600 DO Work Phone: Vital Signs Date Time Vital Sign Value Performing Clinician Facility 10-18-2024 10:21-0500 Body mass index (BMI) [Ratio] 41.35 kg/m2 Mya MCMILLAN Work Phone: [facility] 10-18-2024 10:21-0500 Body weight 119.75 kg Mya MCMILLAN Work Phone: [facility] 10-18-2024 10:21-0500 Diastolic blood pressure 80 mm[Hg] Mya MCMILLAN Work Phone: [facility] 10-18-2024 10:21-0500 Systolic blood pressure 120 mm[Hg] Mya MCMILLAN Work Phone: [facility] 10-14-2024 09:03-0500 Blood Pressure Location Lesley Blanco [facility] 10-14-2024 09:03-0500 Body temperature 98.24 [degF] Lesley Blanco [facility] 10-14-2024 09:03-0500 Diastolic blood pressure 72 mm[Hg] Lesley Blanco [facility] 10-14-2024 09:03-0500 Heart rate 118 /min Lesley Blanco [facility] 10-14-2024 09:03-0500 SaO2% (BldA) [Mass fraction] 99 % Lesley Blanco [facility] 10-14-2024 09:03-0500 Systolic blood pressure 114 mm[Hg] Lesley Blanco [facility] 10-10-2024 11:02-0500 Body mass index (BMI) [Ratio] 40.79 kg/m2 Brain Seamus DO Work Phone: [facility] 10-10-2024 11:02-0500 Body weight 118.12 kg Brain Seamus DO Work Phone: [facility] 10-10-2024 11:02-0500 Diastolic blood pressure 78 mm[Hg] Brain Seamus DO Work Phone: [facility] 10-10-2024 11:02-0500 Systolic blood pressure 114 mm[Hg] Brain Seamus DO Work Phone: [facility] 10-05-2024 14:20-0500 Body mass index (BMI) [Ratio] 40.72 kg/m2 Mya MCMILLAN Work Phone: [facility] 10-05-2024 14:20-0500 Body weight 117.94 kg Mya Finch PA Work Phone: [facility] 10-05-2024 14:20-0500 Diastolic blood pressure 70 mm[Hg] Mya Finch PA Work Phone: [facility] 10-05-2024 14:20-0500 Systolic blood pressure 120 mm[Hg] Mya Finch PA Work Phone: [facility] 09-19-2024 14:33-0500 Body mass index (BMI) [Ratio] 39.49 kg/m2 Brain Seamus DO Work Phone: [facility] 09-19-2024 14:33-0500 Body weight 114.36 kg Brain Seamus DO Work Phone: [facility] 09-19-2024 14:33-0500 Diastolic blood pressure 70 mm[Hg] Brain Seamus DO Work Phone: [facility] 09-19-2024 14:33-0500 Systolic blood pressure 120 mm[Hg] Brain Way DO Work Phone: [facility] 09-07-2024 14:44-0500 Body mass index (BMI) [Ratio] 39.75 kg/m2 Mya Caballerolouisa MCMILLAN Work Phone: [facility] 09-07-2024 14:44-0500 Body weight 115.12 kg Mya Bangor PA Work Phone: [facility] 09-07-2024 14:44-0500 Diastolic blood pressure 82 mm[Hg] Mya Caballeroey PA Work Phone: [facility] 09-07-2024 14:44-0500 Systolic blood pressure 120 mm[Hg] Mya Caballerolouisa MCMILLAN Work Phone: [facility] 09-06-2024 14:04-0500 Body temperature 97.88 [degF] Flash Franco [facility] 09-06-2024 14:04-0500 Diastolic blood pressure 77 mm[Hg] Flash Franco [facility] 09-06-2024 14:04-0500 Heart rate 101 /min Flash Franco [facility] 09-06-2024 14:04-0500 Respiratory rate 18 /min Flash Franco [facility] 09-06-2024 14:04-0500 SaO2% (BldA) [Mass fraction] 99 % Flash Franco [facility] 09-06-2024 14:04-0500 Systolic blood pressure 122 mm[Hg] Flash Franco [facility] 09-05-2024 15:45-0500 Hourly Rounding Rogelio Nath [facility] Comment on above: Result Comment: discharge instructions jessica oswald. monitors off and pt up to dress. 09-05-2024 15:35-0500 Hourly Rounding Rogelio Nath [facility] Comment on above: Result Comment: pt was able to keep spri te and lemon ice down. Wants to go home. 09-05-2024 14:49-0500 Hourly Rounding Rogelio Nath [facility] Comment on above: Result Comment: sprite, lemon ice and ju ice given per pt request. 09-05-2024 07:35-0500 Body temperature 98.24 [degF] Rogelio Nath [facility] 09-05-2024 07:35-0500 Diastolic blood pressure 42 mm[Hg] Rogelio Nath [facility] 09-05-2024 07:35-0500 Heart rate 109 /min Rogelio Nath [facility] 09-05-2024 07:35-0500 Mean blood pressure 65 mm[Hg] Rogelio Nath [facility] 09-05-2024 07:35-0500 Respiratory rate 18 /min Rogelio Nath [facility] 09-05-2024 07:35-0500 Systolic blood pressure 111 mm[Hg] Rogelio Nath [facility] 09-05-2024 07:30-0500 Blood Pressure Location Rogelio Nath [facility] 09-05-2024 04:32-0500 Blood Pressure Location Rogelio Nath [facility] 09-05-2024 04:32-0500 Body temperature 98.24 [degF] Rogelio Nath [facility] 09-05-2024 04:32-0500 Diastolic blood pressure 72 mm[Hg] Rogelio Nath [facility] 09-05-2024 04:32-0500 Heart rate 104 /min Rogelio Nath [facility] 09-05-2024 04:32-0500 Mean blood pressure 90 mm[Hg] Rogelio Nath [facility] 09-05-2024 04:32-0500 Respiratory rate 16 /min Rogelio Nath [facility] 09-05-2024 04:32-0500 SaO2% (BldA) [Mass fraction] 98 % Rogelio Nath [facility] 09-05-2024 04:32-0500 Systolic blood pressure 127 mm[Hg] Rogelio Nath [facility] 09-05-2024 04:00-0500 Diastolic blood pressure 64 mm[Hg] Rogelio Nath [facility] 09-05-2024 04:00-0500 Heart rate 115 /min Rogelio Nath [facility] 09-05-2024 04:00-0500 Mean blood pressure 86 mm[Hg] Rogelio Nath [facility] 09-05-2024 04:00-0500 Systolic blood pressure 129 mm[Hg] Rogelio Nath [facility] 09-05-2024 03:06-0500 Body temperature 97.7 [degF] Rogelio Nath [facility] 09-05-2024 03:06-0500 Heart rate 128 /min Rogelio Nath [facility] 09-05-2024 03:06-0500 Respiratory rate 20 /min Rogelio Nath [facility] 09-05-2024 03:06-0500 SaO2% (BldA) [Mass fraction] 98 % Rogelio Pham [facility] 08-25-2024 12:21-0500 Body height 170.18 cm Darwin Easterwood [employer]TER[employer]TER Work Phone: [facility] 08-25-2024 12:21-0500 Body mass index (BMI) [Ratio] 39.6 kg/m2 Darwin Easterwood BATTER[employer]TER Work Phone: [facility] 08-25-2024 12:21-0500 Body weight 114.75 kg Darwin Easterwood BATTER[employer]ARD [employer]TER Work Phone: [facility] 08-25-2024 12:21-0500 Diastolic blood pressure 84 mm[Hg] Darwin Easterwood BAT[employer]TER Work Phone: [facility] 08-25-2024 12:21-0500 Heart rate 108 /min Darwin Easterwood [employer]TER Work Phone: [facility] 08-25-2024 12:21-0500 Respiratory rate 18 /min Darwin Easterwood BATTER[employer]ARD [employer]TER Work Phone: [facility] 08-25-2024 12:21-0500 SaO2% (BldA) [Mass fraction] 98 % Darwin Easterwood BATTERBO[employer]TER Work Phone: [facility] 08-25-2024 12:21-0500 Systolic blood pressure 132 mm[Hg] Darwin Easterwood BAT[employer]BOARD [employer]TER Work Phone: [facility] 08-23-2024 11:00-0500 Body mass index (BMI) [Ratio] 40.16 kg/m2 Brain Seamus DO Work Phone: [facility] 08-23-2024 11:00-0500 Body weight 116.3 kg Brain Seamus DO Work Phone: [facility] 08-23-2024 11:00-0500 Diastolic blood pressure 78 mm[Hg] Brain Seamus DO Work Phone: [facility] 08-23-2024 11:00-0500 Systolic blood pressure 120 mm[Hg] Brain Seamus DO Work Phone: [facility] 07-11-2024 13:09-0500 Body mass index (BMI) [Ratio] 38.97 kg/m2 Brain Seamus DO Work Phone: [facility] 07-11-2024 13:09-0500 Body weight 112.86 kg Brain Seamus DO Work Phone: [facility] 07-11-2024 13:09-0500 Diastolic blood pressure 76 mm[Hg] Brain Seamus DO Work Phone: [facility] 07-11-2024 13:09-0500 Systolic blood pressure 120 mm[Hg] Brain Seamus DO Work Phone: [facility] 06-28-2024 08:04-0500 Body weight Darwin Jones APRN Work Phone: [facility] Comment on above: Not provided. 2024 14:13-0500 Diastolic blood pressure 78 mm[Hg] Hayden Reilly MD Work Phone: [facility] 2024 14:13-0500 Heart rate 88 /min Hayden Reilly MD Work Phone: [facility] 2024 14:13-0500 Systolic blood pressure 125 mm[Hg] Hayden Reilly MD Work Phone: [facility] 2024 13:18-0500 Body height 170.2 cm Hayden Reilly MD Work Phone: [facility] 06-12-2024 10:19-0400 Body mass index (BMI) [Ratio] 38.37 kg/m2 Brain Seamus DO Work Phone: [facility] 06-12-2024 10:19-0400 Body weight 111.13 kg Brain Seamus DO Work Phone: [facility] 06-12-2024 10:19-0400 Diastolic blood pressure 80 mm[Hg] Brain Seamus DO Work Phone: [facility] 06-12-2024 10:19-0400 Systolic blood pressure 122 mm[Hg] Brain Seamus DO Work Phone: [facility] 05-11-2024 11:04-0400 Body height 170.18 cm 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: [facility] 05-11-2024 11:04-0400 Body mass index (BMI) [Ratio] 38.2 kg/m2 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: [facility] 05-11-2024 11:04-0400 Body temperature 97.8 [degF] 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: [facility] 05-11-2024 11:04-0400 Body weight 110.67 kg 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: [facility] 05-11-2024 11:04-0400 Diastolic blood pressure 74 mm[Hg] 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: [facility] 05-11-2024 11:04-0400 Heart rate 90 /min 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: [facility] 05-11-2024 11:04-0400 Respiratory rate 20 /min 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: [facility] 05-11-2024 11:04-0400 SaO2% (BldA) [Mass fraction] 98 % 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: [facility] 05-11-2024 11:04-0400 Systolic blood pressure 126 mm[Hg] 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: [facility] 05-10-2024 13:50-0400 Body mass index (BMI) [Ratio] 38.39 kg/m2 Brain Seamus DO Work Phone: [facility] 05-10-2024 13:50-0400 Body weight 111.19 kg Brain Seamus DO Work Phone: [facility] 05-10-2024 13:50-0400 Diastolic blood pressure 76 mm[Hg] Brain Seamus DO Work Phone: [facility] 05-10-2024 13:50-0400 Systolic blood pressure 120 mm[Hg] Brain Seamus DO Work Phone: [facility] 04-20-2024 10:37-0400 Body mass index (BMI) [Ratio] 38.53 kg/m2 Brain Seamus DO Work Phone: [facility] 04-20-2024 10:37-0400 Body weight 111.58 kg Brain Seamus DO Work Phone: [facility] 04-20-2024 10:37-0400 Diastolic blood pressure 76 mm[Hg] Brain Seamus DO Work Phone: [facility] 04-20-2024 10:37-0400 Systolic blood pressure 122 mm[Hg] Brain Seamus DO Work Phone: [facility] 04-07-2024 09:42-0400 Body mass index (BMI) [Ratio] 38.86 kg/m2 Noms Nurse [facility] 04-07-2024 09:42-0400 Body weight 112.55 kg Noms Nurse [facility] 04-07-2024 09:42-0400 Diastolic blood pressure 70 mm[Hg] Noms Nurse [facility] 04-07-2024 09:42-0400 Systolic blood pressure 120 mm[Hg] Noms Nurse [facility] 03-18-2024 11:50-0400 Diastolic blood pressure 83 mm[Hg] [place] [facility] 03-18-2024 11:50-0400 Heart rate 75 /min [place] [facility] 03-18-2024 11:50-0400 Mean blood pressure 97 mm[Hg] Toan Steine [facility] 03-18-2024 11:50-0400 Respiratory rate 16 /min Toan Steine [facility] 03-18-2024 11:50-0400 SaO2% (BldA) [Mass fraction] 98 % Toan Steine [facility] 03-18-2024 11:50-0400 Systolic blood pressure 126 mm[Hg] Toan Steine [facility] 03-18-2024 09:46-0400 Hourly Rounding Toan Steine [facility] 03-18-2024 09:11-0400 Hourly Rounding Toan Steine [facility] 03-18-2024 08:10-0400 Body temperature 98.6 [degF] Toan Steine [facility] 03-18-2024 08:10-0400 Diastolic blood pressure 91 mm[Hg] Toan Steine [facility] 03-18-2024 08:10-0400 Heart rate 98 /min Toan Steine [facility] 03-18-2024 08:10-0400 Hourly Rounding Toan Steine [facility] 03-18-2024 08:10-0400 Respiratory rate 17 /min Toan Steine [facility] 03-18-2024 08:10-0400 SaO2% (BldA) [Mass fraction] 98 % Toan Steine [facility] 03-18-2024 08:10-0400 Systolic blood pressure 135 mm[Hg] Toan Jaya [facility] 01-25-2024 08:59-0400 Body height 170.18 cm BATTERBOARD SETTER Drawin Easterwood Work Phone: [facility] 01-25-2024 08:59-0400 Body mass index (BMI) [Ratio] 37.4 kg/m2 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: [facility] 01-25-2024 08:59-0400 Body temperature 98 [degF] 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: [facility] 01-25-2024 08:59-0400 Body weight 108.4 kg [employer]TERBOARD SETTER Darwin Eastermacy Work Phone: [facility] 01-25-2024 08:59-0400 Diastolic blood pressure 80 mm[Hg] 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: [facility] 01-25-2024 08:59-0400 Heart rate 98 /min 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: [facility] 01-25-2024 08:59-0400 Respiratory rate 20 /min 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: [facility] 01-25-2024 08:59-0400 SaO2% (BldA) [Mass fraction] 99 % BATTERBOARD SETTERAkilah Edgara Easterwood Work Phone: [facility] 01-25-2024 08:59-0400 Systolic blood pressure 122 mm[Hg] 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: [facility] 12-24-2023 09:56-0400 Body height 170.18 cm 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: [facility] 12-24-2023 09:56-0400 Body mass index (BMI) [Ratio] 37.7 kg/m2 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: [facility] 12-24-2023 09:56-0400 Body temperature 97.6 [degF] 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: [facility] 12-24-2023 09:56-0400 Body weight 109.31 kg 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: [facility] 12-24-2023 09:56-0400 Diastolic blood pressure 84 mm[Hg] 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: [facility] 12-24-2023 09:56-0400 Heart rate 102 /min 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: [facility] 12-24-2023 09:56-0400 Respiratory rate 20 /min 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: [facility] 12-24-2023 09:56-0400 SaO2% (BldA) [Mass fraction] 98 % BATTERBOARD SETTERAkilah Orosco Easterwood Work Phone: [facility] 12-24-2023 09:56-0400 Systolic blood pressure 126 mm[Hg] 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: [facility] 11-25-2023 09:01-0400 Body height 170.18 cm BATTERBOARD SETTERAkilah Orosco Easterwood Work Phone: [facility] 11-25-2023 09:01-0400 Body mass index (BMI) [Ratio] 37.7 kg/m2 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: [facility] 11-25-2023 09:01-0400 Body temperature 97 [degF] 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: [facility] 11-25-2023 09:01-0400 Body weight 109.31 kg 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: [facility] 11-25-2023 09:01-0400 Diastolic blood pressure 76 mm[Hg] 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: [facility] 11-25-2023 09:01-0400 Heart rate 95 /min BATTERBOARD SETTER Darwin Jones Work Phone: [facility] 11-25-2023 09:01-0400 Respiratory rate 20 /min BATTERBOARD SETTER Darwin Jones Work Phone: [facility] 11-25-2023 09:01-0400 SaO2% (BldA) [Mass fraction] 98 % BAT[employer]ARD [employer]TER Darwin Jones Work Phone: [facility] 11-25-2023 09:01-0400 Systolic blood pressure 120 mm[Hg] BATTERBOARD SETTER Darwin Robert Work Phone: [facility] 11-18-2023 08:03-0400 Body weight 110.68 kg Ruby Whittington MD Work Phone: [facility] 11-18-2023 08:03-0400 Diastolic blood pressure 92 mm[Hg] Ruby Whittington MD Work Phone: [facility] 11-18-2023 08:03-0400 Heart rate 100 /min Ruby Whittington MD Work Phone: [facility] 11-18-2023 08:03-0400 Systolic blood pressure 132 mm[Hg] Ruby Whittington MD Work Phone: [facility] 10-20-2023 09:05-0500 Body height 170.18 cm SHIRLEY Darwin Robert Work Phone: [facility] 10-20-2023 09:05-0500 Body mass index (BMI) [Ratio] 38.3 kg/m2 BATTERBOARD SETTER Darwin Jones Work Phone: [facility] 10-20-2023 09:05-0500 Body temperature 98 [degF] SHIRLEY Orosco Robert Work Phone: [facility] 10-20-2023 09:05-0500 Body weight 111.13 kg BATTERBOARD SETTERAkilah Jones Work Phone: [facility] 10-20-2023 09:05-0500 Diastolic blood pressure 78 mm[Hg] BATTERBOARD SETTERAkilah Jones Work Phone: [facility] 10-20-2023 09:05-0500 Heart rate 82 /min BATTERBOARD SETTERAkilah Jones Work Phone: [facility] 10-20-2023 09:05-0500 Respiratory rate 20 /min BATTERBOARD SETTERAkilah Jones Work Phone: [facility] 10-20-2023 09:05-0500 SaO2% (BldA) [Mass fraction] 98 % BATTERBOARD SETTERAkilah Jones Work Phone: [facility] 10-20-2023 09:05-0500 Systolic blood pressure 124 mm[Hg] SHIRLEY Jones Work Phone: [facility] 09-29-2023 10:41-0500 Blood Pressure Location Tyrone Rock [facility] 09-29-2023 10:41-0500 Body temperature 98.24 [degF] Tyrone Rock [facility] 09-29-2023 10:41-0500 Diastolic blood pressure 78 mm[Hg] Tyrone Rock [facility] 09-29-2023 10:41-0500 Heart rate 95 /min Tyrone Pranav [facility] 09-29-2023 10:41-0500 SaO2% (BldA) [Mass fraction] 97 % Tyrone Polancopsey [facility] 09-29-2023 10:41-0500 Systolic blood pressure 122 mm[Hg] Tyrone Rock [facility] 09-21-2023 09:00-0500 Body height 170.18 cm Darwni Easterwood Other [facility] Other 09-21-2023 09:00-0500 Body mass index (BMI) [Ratio] 38.37 kg/m2 Darwin Easterwood Other [facility] Other 09-21-2023 09:00-0500 Body temperature 98 [degF] Darwin Easterwood Other [facility] Other 09-21-2023 09:00-0500 Body weight 111.13 kg Darwin Easterwood Other [facility] Other 09-21-2023 09:00-0500 Diastolic blood pressure 84 mm[Hg] Darwin Easterwood Other [facility] Other 09-21-2023 09:00-0500 Respiratory rate 20 /min Darwin Easterwood Other [facility] Other 09-21-2023 09:00-0500 SaO2% (BldA) [Mass fraction] 98 % Darwin Easterwood Other [facility] Other 09-21-2023 09:00-0500 Systolic blood pressure 126 mm[Hg] Darwin Easterwood Other [facility] Other 08-25-2023 09:30-0500 Body height 170.18 cm Darwin Easterwood Other [facility] 08-25-2023 09:30-0500 Body mass index (BMI) [Ratio] 39.46 kg/m2 Darwin Easterwood Other [facility] Other 08-25-2023 09:30-0500 Body temperature 97.6 [degF] Darwin Easterwood Other [facility] Other 08-25-2023 09:30-0500 Body weight 114.31 kg Darwin Easterwood Other [facility] Other 08-25-2023 09:30-0500 Body weight 114.3 kg 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: [facility] 08-25-2023 09:30-0500 Diastolic blood pressure 80 mm[Hg] Darwin Easterwood Other [facility] 08-25-2023 09:30-0500 Respiratory rate 20 /min Darwin Easterwood Other [facility] Other 08-25-2023 09:30-0500 SaO2% (BldA) [Mass fraction] 98 % Darwin Easterwood Other [facility] Other 08-25-2023 09:30-0500 Systolic blood pressure 120 mm[Hg] Darwin Easterwood Other [facility] 07-23-2023 09:30-0500 Body height 170.18 cm 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: [facility] 07-23-2023 09:30-0500 Body weight 116.57 kg 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: [facility] 07-23-2023 09:30-0500 Diastolic blood pressure 80 mm[Hg] 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: [facility] 07-23-2023 09:30-0500 Systolic blood pressure 118 mm[Hg] 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: [facility] 06-23-2023 09:30-0500 Body height 170.18 cm Darwin Easterwood Other [facility] Other 06-23-2023 09:30-0500 Body mass index (BMI) [Ratio] 40.4 kg/m2 Darwin Easterwood Other [facility] Other 06-23-2023 09:30-0500 Body temperature 97.4 [degF] Darwin Easterwood Other [facility] Other 06-23-2023 09:30-0500 Body weight 117.03 kg Darwin Easterwood Other [facility] Other 06-23-2023 09:30-0500 Diastolic blood pressure 78 mm[Hg] Darwin Easterwood Other [facility] Other 06-23-2023 09:30-0500 Respiratory rate 20 /min Darwin Easterwood Other [facility] Other 06-23-2023 09:30-0500 SaO2% (BldA) [Mass fraction] 98 % Darwin Easterwood Other [facility] Other 06-23-2023 09:30-0500 Systolic blood pressure 120 mm[Hg] Darwin Easterwood Other [facility] Other 06-08-2023 14:00-0400 Body temperature 97.2 [degF] Francy Gan PA-C Work Phone: [facility] 05-26-2023 10:30-0400 Body height 170.18 cm Darwin Easterwood Other [facility] Other 05-26-2023 10:30-0400 Body mass index (BMI) [Ratio] 41.5 kg/m2 Darwin Easterwood Other [facility] Other 05-26-2023 10:30-0400 Body temperature 98.4 [degF] Darwin Easterwood Other [facility] Other 05-26-2023 10:30-0400 Body weight 120.2 kg Darwin Easterwood Other [facility] Other 05-26-2023 10:30-0400 Diastolic blood pressure 70 mm[Hg] Darwin Easterwood Other [facility] Other 05-26-2023 10:30-0400 Respiratory rate 20 /min Darwin Easterwood Other [facility] Other 05-26-2023 10:30-0400 SaO2% (BldA) [Mass fraction] 97 % Darwin Easterwood Other [facility] Other 05-26-2023 10:30-0400 Systolic blood pressure 112 mm[Hg] Darwin Easterwood Other [facility] Other 04-28-2023 09:15-0400 Body height 170.18 cm Darwin Easterwood Other [facility] Other 04-28-2023 09:15-0400 Body mass index (BMI) [Ratio] 41.34 kg/m2 Darwin Easterwood Other [facility] Other 04-28-2023 09:15-0400 Body temperature 97.2 [degF] Darwin Easterwood Other [facility] Other 04-28-2023 09:15-0400 Body weight 119.75 kg Darwin Easterwood Other [facility] Other 04-28-2023 09:15-0400 Diastolic blood pressure 82 mm[Hg] Darwin Easterwood Other [facility] Other 04-28-2023 09:15-0400 Respiratory rate 20 /min Darwin Roberterwood Other [facility] Other 04-28-2023 09:15-0400 SaO2% (BldA) [Mass fraction] 97 % Darwin Easterwood Other [facility] Other 04-28-2023 09:15-0400 Systolic blood pressure 120 mm[Hg] Darwin Easterwood Other [facility] Other 04-16-2023 11:00-0400 Body height 170.18 cm Darwin Easterwood Other [facility] Other 04-16-2023 11:00-0400 Body mass index (BMI) [Ratio] 41.03 kg/m2 Darwin Easterwood Other [employer] Other 04-16-2023 11:00-0400 Body temperature 97.8 [degF] Darwin Easterwood Other [facility] Other 04-16-2023 11:00-0400 Body weight 118.84 kg Darwin Easterwood Other [employer] Other 04-16-2023 11:00-0400 Diastolic blood pressure 80 mm[Hg] Darwin Easterwood Other [employer] Other 04-16-2023 11:00-0400 Respiratory rate 20 /min Darwin Easterwood Other [facility] Other 04-16-2023 11:00-0400 SaO2% (BldA) [Mass fraction] 98 % Darwin Roberterwood Other [facility] Other 04-16-2023 11:00-0400 Systolic blood pressure 120 mm[Hg] Darwin Easterwood Other [place] [employer] Other 03-22-2023 22:51-0400 Diastolic blood pressure 74 mm[Hg] Kaylinn Dokken [facility] 03-22-2023 22:51-0400 Heart rate 80 /min Kaylinn Dokken [facility] 03-22-2023 22:51-0400 Mean blood pressure 92 mm[Hg] Kaylinn Dokken [facility] 03-22-2023 22:51-0400 Respiratory rate 16 /min Kaylinn Dokken [facility] 03-22-2023 22:51-0400 SaO2% (BldA) [Mass fraction] 98 % Kaylinn Dokken [facility] 03-22-2023 22:51-0400 Systolic blood pressure 128 mm[Hg] Kaylinn Dokken [facility] 03-22-2023 21:24-0400 Heart rate 76 /min Kaylinn Dokken [facility] 03-22-2023 21:24-0400 Respiratory rate 16 /min Kaylinn Dokken [facility] 03-22-2023 21:24-0400 SaO2% (BldA) [Mass fraction] 97 % Kaylinn Dokken [facility] 03-22-2023 19:54-0400 Body temperature 98.06 [degF] Kaylinn Dokken [facility] 03-22-2023 19:54-0400 Diastolic blood pressure 89 mm[Hg] Kaylinn Dokken [facility] 03-22-2023 19:54-0400 Heart rate 81 /min Kaylinn Dokken [facility] 03-22-2023 19:54-0400 Respiratory rate 18 /min Kaylinn Dokken [facility] 03-22-2023 19:54-0400 SaO2% (BldA) [Mass fraction] 99 % Kaylinn Dokken [facility] 03-22-2023 19:54-0400 Systolic blood pressure 138 mm[Hg] Kaylinn Dokken [facility] 03-22-2023 15:18-0400 Body height 170.18 cm 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: [facility] 03-22-2023 15:18-0400 Body temperature 98.2 [degF] 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: [facility] 03-22-2023 15:18-0400 Body weight 120.5 kg 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: [facility] 03-22-2023 15:18-0400 Diastolic blood pressure 74 mm[Hg] BATTERBOARD SETTER Darwin LaraDocin Work Phone: [facility] 03-22-2023 15:18-0400 Heart rate 92 /min BATTERBOARD SETTER Darwin LaraDocin Work Phone: [facility] 03-22-2023 15:18-0400 Respiratory rate 20 /min BATTERBOARD SETTERAkilah LaraDocin Work Phone: [facility] 03-22-2023 15:18-0400 SaO2% (BldA) [Mass fraction] 97 % BATTERBOARD SETTERAkilah Orosco varinode Work Phone: [facility] 03-22-2023 15:18-0400 Systolic blood pressure 175 mm[Hg] BATTERBOARD SETTERAkilah Orosco varinode Work Phone: [facility] 10-05-2022 09:00-0500 Body height 170.18 cm Ofelia Missler Other [facility] Other 10-05-2022 09:00-0500 Body mass index (BMI) [Ratio] 37.21 kg/m2 Ofelia Missler Other [facility] Other 10-05-2022 09:00-0500 Body weight 107.78 kg Ofelia Missler Other [facility] Other 10-05-2022 09:00-0500 Diastolic blood pressure 45 mm[Hg] Ofelia Missler Other [employer] Other 10-05-2022 09:00-0500 Respiratory rate 18 /min Ofelia Missler Other [facility] Other 10-05-2022 09:00-0500 SaO2% (BldA) [Mass fraction] 97 % Ofelia Missler Other [employer] Other 10-05-2022 09:00-0500 Systolic blood pressure 100 mm[Hg] Ofelia Missler Other [facility] Other 09-02-2022 11:30-0500 Body height 170.18 cm Ofelia Missler Other [employer] Other 09-02-2022 11:30-0500 Body mass index (BMI) [Ratio] 38.04 kg/m2 Ofelia Missler Other [facility] Other 09-02-2022 11:30-0500 Body weight 110.18 kg Ofelia Missler Other [facility] Other 09-02-2022 11:30-0500 Diastolic blood pressure 79 mm[Hg] Ofelia Missler Other [facility] Other 09-02-2022 11:30-0500 Respiratory rate 18 /min Ofelia Missler Other [facility] Other 09-02-2022 11:30-0500 SaO2% (BldA) [Mass fraction] 96 % Ofelia Missler Other [facility] Other 09-02-2022 11:30-0500 Systolic blood pressure 119 mm[Hg] Ofelia Missler Other [facility] Other 08-25-2022 14:00-0500 Body height 170.18 cm Lilly Luke Other [facility] Other 08-25-2022 14:00-0500 Body mass index (BMI) [Ratio] 38.01 kg/m2 Lilly Fitt Other [facility] Other 08-25-2022 14:00-0500 Body weight 110.09 kg Lilly Fitt Other [facility] Other 07-31-2022 09:45-0500 Body height 170.18 cm Ofelia Missler Other [facility] Other 07-31-2022 09:45-0500 Body mass index (BMI) [Ratio] 38.2 kg/m2 Ofelia Missler Other [facility] Other 07-31-2022 09:45-0500 Body weight 110.63 kg Ofelia Missler Other [facility] Other 07-31-2022 09:45-0500 Diastolic blood pressure 78 mm[Hg] Ofelia Missler Other [facility] Other 07-31-2022 09:45-0500 Respiratory rate 18 /min Ofelia Missler Other [facility] Other 07-31-2022 09:45-0500 SaO2% (BldA) [Mass fraction] 96 % Ofelia Missler Other [facility] Other 07-31-2022 09:45-0500 Systolic blood pressure 135 mm[Hg] Ofelia Missler Other [employer] Other 07-14-2022 08:49-0500 Body height 170.5 cm Ruby Whittington MD Work Phone: [facility] 07-14-2022 08:49-0500 Body weight 111.58 kg Ruby Whittington MD Work Phone: [facility] 07-14-2022 08:49-0500 Diastolic blood pressure 73 mm[Hg] Ruby Whittington MD Work Phone: [facility] 07-14-2022 08:49-0500 Heart rate 92 /min Ruby Whittington MD Work Phone: [facility] 07-14-2022 08:49-0500 Systolic blood pressure 140 mm[Hg] Ruby Whittington MD Work Phone: [facility] 06-17-2022 15:45-0400 Body height 170.18 cm Ofelia Missler Other [facility] Other 06-17-2022 15:45-0400 Body mass index (BMI) [Ratio] 38.99 kg/m2 Ofelia Missler Other [facility] Other 06-17-2022 15:45-0400 Body weight 112.95 kg Ofelia Missler Other [facility] Other 06-17-2022 15:45-0400 Diastolic blood pressure 90 mm[Hg] Ofelia Missler Other [facility] Other 06-17-2022 15:45-0400 Respiratory rate 18 /min Ofelia Missler Other [facility] Other 06-17-2022 15:45-0400 SaO2% (BldA) [Mass fraction] 96 % Ofelia Missler Other [facility] Other 06-17-2022 15:45-0400 Systolic blood pressure 140 mm[Hg] Ofelia Missler Other [facility] Other 06-04-2022 13:00-0400 Body height 170.18 cm Sima Ross Other [facility] Other 06-04-2022 13:00-0400 Body mass index (BMI) [Ratio] 38.37 kg/m2 Sima Ross Other [facility] Other 06-04-2022 13:00-0400 Body temperature 98.6 [degF] Sima Ross Other [facility] Other 06-04-2022 13:00-0400 Body weight 111.13 kg Sima Ross Other [facility] Other 06-04-2022 13:00-0400 Diastolic blood pressure 83 mm[Hg] Sima Ross Other [facility] Other 06-04-2022 13:00-0400 Respiratory rate 18 /min Sima Ross Other [facility] Other 06-04-2022 13:00-0400 SaO2% (BldA) [Mass fraction] 99 % Sima Ross Other [facility] Other 06-04-2022 13:00-0400 Systolic blood pressure 124 mm[Hg] Sima Ross Other [facility] Other 05-27-2022 12:15-0400 Body height 170.18 cm Lilly Luke Other [facility] Other 05-18-2022 09:30-0400 Body height 170.18 cm Ofelia Hester Other [facility] Other 05-18-2022 09:30-0400 Body mass index (BMI) [Ratio] 39.37 kg/m2 Ofelia Missler Other [facility] Other 05-18-2022 09:30-0400 Body temperature 98.1 [degF] Ofelia Missler Other [facility] Other 05-18-2022 09:30-0400 Body weight 114.04 kg Ofelia Missler Other [facility] Other 05-18-2022 09:30-0400 Diastolic blood pressure 80 mm[Hg] Ofelia Missler Other [facility] Other 05-18-2022 09:30-0400 Respiratory rate 18 /min Ofelia Missler Other [facility] Other 05-18-2022 09:30-0400 SaO2% (BldA) [Mass fraction] 99 % Ofelia Missler Other [facility] Other 05-18-2022 09:30-0400 Systolic blood pressure 115 mm[Hg] Ofelia Missler Other [facility] Other 04-17-2022 09:30-0400 Body height 170.18 cm Xeebel Other [facility] Other 04-17-2022 09:30-0400 Body mass index (BMI) [Ratio] 39.15 kg/m2 Xeebel Other [facility] Other 04-17-2022 09:30-0400 Body temperature 96.9 [degF] Xeebel Other [facility] Other 04-17-2022 09:30-0400 Body weight 113.4 kg Darwin Easterwood Other [facility] Other 04-17-2022 09:30-0400 Diastolic blood pressure 82 mm[Hg] Darwin Easterwood Other [facility] Other 04-17-2022 09:30-0400 Respiratory rate 20 /min Darwin Easterwood Other [facility] Other 04-17-2022 09:30-0400 SaO2% (BldA) [Mass fraction] 99 % Darwin Easterwood Other [facility] Other 04-17-2022 09:30-0400 Systolic blood pressure 124 mm[Hg] Darwin Easterwood Other [place] [employer] Other 02-18-2022 21:41-0400 Diastolic blood pressure 88 mm[Hg] Fazal Antoni [facility] 02-18-2022 21:41-0400 Heart rate 84 /min Fazal Antoni [facility] 02-18-2022 21:41-0400 Mean blood pressure 101 mm[Hg] Fazal Antoni [facility] 02-18-2022 21:41-0400 Respiratory rate 17 /min Fazal Antoni [facility] 02-18-2022 21:41-0400 SaO2% (BldA) [Mass fraction] 98 % Darwin Easterwood Other [employer] Other 02-18-2022 21:41-0400 Systolic blood pressure 126 mm[Hg] Fazal Antoni [facility] 02-18-2022 20:42-0400 gluc 106 mg/dL Fazal Antoni [facility] 02-18-2022 20:42-0400 gluc Fazal Antoni [facility] 02-18-2022 20:33-0400 Body temperature 98.06 [degF] Fazal Antoni [facility] 02-18-2022 20:33-0400 Diastolic blood pressure 99 mm[Hg] Fazal Antoni [facility] 02-18-2022 20:33-0400 Heart rate 99 /min Fazal Antoni [facility] 02-18-2022 20:33-0400 Respiratory rate 18 /min Fazal Antoni [facility] 02-18-2022 20:33-0400 Systolic blood pressure 153 mm[Hg] Fazal Antoni [facility] 02-18-2022 10:00-0400 Body height 170.18 cm Xeebel Other [facility] [employer] Other 02-18-2022 10:00-0400 Body mass index (BMI) [Ratio] 38.52 kg/m2 Xeebel Other [facility] Other 02-18-2022 10:00-0400 Body temperature 97 [degF] Xeebel Other [facility] Other 02-18-2022 10:00-0400 Body weight 111.59 kg Xeebel Other [facility] Other 02-18-2022 10:00-0400 Diastolic blood pressure 82 mm[Hg] Darwin Easterwood Other [facility] Other 02-18-2022 10:00-0400 Respiratory rate 20 /min Darwin Easterwood Other [facility] Other 02-18-2022 10:00-0400 Systolic blood pressure 118 mm[Hg] Darwin Easterwood Other [facility] Other 02-11-2022 12:00-0400 Body height 170.18 cm Darwin Easterwood Other [facility] Other 02-11-2022 12:00-0400 Body mass index (BMI) [Ratio] 37.9 kg/m2 Darwin Easterwood Other [facility] Other 02-11-2022 12:00-0400 Body temperature 97.2 [degF] Darwin Easterwood Other [facility] Other 02-11-2022 12:00-0400 Body weight 109.77 kg Darwin Easterwood Other [facility] Other 02-11-2022 12:00-0400 Diastolic blood pressure 88 mm[Hg] Darwin Easterwood Other [facility] Other 02-11-2022 12:00-0400 Respiratory rate 20 /min Darwin Easterwood Other [facility] Other 02-11-2022 12:00-0400 SaO2% (BldA) [Mass fraction] 98 % Darwin Easterwood Other [facility] Other 02-11-2022 12:00-0400 Systolic blood pressure 126 mm[Hg] Darwin Jones Other [facility] [employer] [facility] Other 09-03-2021 10:02-0500 Diastolic blood pressure 86 mm[Hg] Unknown Unknown [facility] DO Work Phone: 09-03-2021 10:02-0500 Systolic blood pressure 110 mm[Hg] Unknown Unknown [facility] DO Work Phone: 09-03-2021 09:55-0500 Body height 170.18 cm Unknown Unknown [facility] DO Work Phone: 09-03-2021 09:55-0500 Body mass index (BMI) [Ratio] 32.36 kg/m2 Unknown Unknown [facility] DO Work Phone: 09-03-2021 09:55-0500 Body surface area Derived from formula 2.05 m2 Unknown Unknown [facility] DO Work Phone: 09-03-2021 09:55-0500 Body weight 93.71 kg Unknown Unknown [facility] DO Work Phone: 09-03-2021 09:55-0500 Diastolic blood pressure 84 mm[Hg] Unknown Unknown [facility] DO Work Phone: 09-03-2021 09:55-0500 Heart rate 72 /min Unknown Unknown [facility] DO Work Phone: 09-03-2021 09:55-0500 Systolic blood pressure 122 mm[Hg] Unknown Unknown [facility] DO Work Phone: Encounters Encounter Date Encounter Type Care Provider Facility Start: 10-18-2024 End: 10-18-2024 Bamboo flowsheet Mya MCMILLAN Work Phone: [facility] Start: 10-18-2024 End: 10-18-2024 Bamboo flowsheet Mya MCMILLAN Work Phone: [facility] Start: 10-18-2024 End: 10-18-2024 ambulatory MYA FINCH Not Available Start: 10-18-2024 End: 10-18-2024 flow sheet Mya MCMILLAN Work Phone: [facility] Comment on above: 37 weeks gestation o f ; Third trimester ; Anxiety, generalized (CMS/HCC) Start: 10-14-2024 End: 10-14-2024 Lab Drop off Lesley C Lazaroer [facility] Start: 10-14-2024 End: 10-14-2024 ambulatory Lesley C Bordner Facility:[facility] Start: 10-14-2024 End: 10-14-2024 Patient encounter procedure Lesley C Lazaroer [facility] Start: 10-13-2024 End: 10-13-2024 Clinisync Result Encounter Brain Seamus DO Work Phone: [facility] External Department Unsolicited Start: 10-13-2024 End: 10-13-2024 Clinisync Result Encounter Brain Seamus DO Work Phone: [facility] External Department Unsolicited Start: 10-10-2024 End: 10-10-2024 [...] encounter procedure Darwin Jones APRN Work Phone: [facility] [place] Work Phone: Start: 09-21-2024 End: 09-21-2024 ambulatory Darwin Jones APRN Work Phone: [facility] Work Phone: Start: 09-19-2024 End: 09-19-2024 [...] End: 09-14-2024 Patient encounter procedure Darwin Jones [employer]TERBO[employer]TER Work Phone: [facility]ro[facility] Work Phone: Start: 09-14-2024 End: 09-14-2024 ambulatory Darwin Jones [employer]BOARD [employer]TER Work Phone: [facility] Work Phone: Start: 09-11-2024 End: 09-11-2024 [...] / Non-visit Darwin corral APRN Work Phone: [facility] Work Phone: Start: 09-06-2024 End: 09-06-2024 Emergency department patient visit Flash Franco [facility] Start: 09-05-2024 ambulatory Rogelio Robins [facility] Facility :[facility] Start: 09-05-2024 End: 09-05-2024 ambulatory Rogelio Robins [facility] Facility:[facility] Start: 09-05-2024 Emergency department patient visit DO Annaakilah Kenan Sellerscornell Facility:[facility] Start: 09-05-2024 End: 09-05-2024 Observation Rogelio Robins [facility] Start: 08-25-2024 End: 08-25-2024 Clinisync Result Encounter Brain Seamus DO Work Phone: [facility] Unsolicited Start: 08-25-2024 End: 08-25-2024 Clinisync Result Encounter Brain Seamus DO Work Phone: [facility] External Department Unsolicited Start: 08-25-2024 End: 08-25-2024 ambulatory Darwin Jones BATTERBOARD SETTER Work Phone: [facility] Work Phone: Start: 08-25-2024 End: 08-25-2024 Patient encounter procedure Darwin Jones APRN Work Phone: [facility] Work Phone: Start: 08-23-2024 [...] Available Start: 08-02-2024 End: 08-02-2024 ambulatory DARCY MINA [facility] Start: 07-31-2024 End: 07-31-2024 Patient encounter procedure Darwin Jones APRN Work Phone: [facility] [place] Work Phone: Start: 07-31-2024 End: 07-31-2024 Orders Only Hayden Reilly MD Work Phone: [facility] Comment on above: History of pericardi tis (Primary Dx); Mild concentric left ventricular hypertrophy (LVH); 25 weeks gestation of Start: 07-27-2024 End: 07-27-2024 ambulatory NO PCP NO PCP [facility] Start: 07-11-2024 End: 07-11-2024 flow sheet Brain Seamus DO Work Phone: [facility] Comment on above: 22 weeks gestation o f ; Second trimester ; Nausea and vomiting during ; Diabetes mellitus screening Start: 06-28-2024 End: 06-28-2024 Patient encounter procedure Darwin Jones BATTERBOARD SETTER Work Phone: [facility] [place] Work Phone: Start: 06-28-2024 End: 06-28-2024 ambulatory Darwin Jones BATTERBOARD SETTER Work Phone: [facility] Work Phone: Start: 2024 End: 2024 Office consultation new/estab patient 60 min Hayden Reilly MD Work Phone: [facility] [place] Comment on above: 20 weeks gestation o f (Primary Dx); Tiffani's disease; 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; Hx of preeclampsia, prior , currently ; Elevated BP without diagnosis of hypertension; History of pericarditis; with history of section, antepartum; History of macrosomia in infant in prior , currently ; Obesity affecting , antepartum, unspecified obesity type; Depression affecting Start: 2024 End: 2024 ambulatory [facility] Start: 06-22-2024 End: 06-22-2024 Patient encounter procedure Darwin Jones BATTERBOARD SETTER Work Phone: [facility] [place] Work Phone: Start: 06-22-2024 End: 06-22-2024 ambulatory Darwin Jones BATTERBOARD SETTER Work Phone: [facility] Work Phone: Start: 06-21-2024 End: 06-21-2024 Chart abstracting Hayden Reilly MD Work Phone: [facility] Start: 06-12-2024 End: 06-12-2024 Bamboo flowsheet [facility] DO Work Phone: [facility] [...] Patient encounter procedure SHIRLEY Jones Work Phone: [facility] [place] Work Phone: Start: 05-24-2024 End: 05-24-2024 ambulatory [facility]ARD [facility] Work Phone: [facility] Work Phone: Start: 05-11-2024 End: 05-11-2024 ambulatory [facility] [facility] Work Phone: [facility] Work Phone: Start: 05-11-2024 End: 05-11-2024 Encounter for general adult medical examination without abnormal findings [place] Work Phone: [facility] Start: 05-11-2024 End: 05-11-2024 Patient encounter procedure BATTERBOARD SETTER Darwin Robert Work Phone: [facility] [place] Work Phone: Start: 05-10-2024 End: 05-10-2024 Bamboo [...] Available Start: 04-06-2024 End: 04-06-2024 Departed Referred BATTERBOARD SETTER Darwin Jones Work Phone: [facility] Start: 04-06-2024 End: 04-06-2024 ambulatory SHIRLEY Jonesermacy Work Phone: [facility] Work Phone: Start: 03-21-2024 End: 03-21-[address] Not Available Start: 03-18-2024 End: 03-18-2024 Emergency department patient visit [place] [facility] Start: 02-24-2024 End: 02-24-2024 Patient encounter procedure BATTERBOARD SETTERAkilah Jones Work Phone: [facility] [place] Work Phone: Start: 02-24-2024 End: 02-24-2024 ambulatory SHIRLEY Jonesermacy Work Phone: [facility] Work Phone: Start: 01-25-2024 End: 01-25-2024 ambulatory SHIRLEY Jonesermacy Work Phone: [facility] Work Phone: Start: 01-25-2024 End: 01-25-2024 Patient encounter procedure BATTERBOARD SETTERAkilah Jones Work Phone: [facility] Family [facility] Work Phone: Start: 01-24-2024 End: 01-24-2024 Patient encounter procedure BATTERBOARD SETTERAkilah Jonesermacy Work Phone: [facility] [place] Work Phone: Start: 01-24-2024 End: 01-24-2024 ambulatory BATTERBOARD SETTER Darwin Anaya Easterwood Work Phone: [facility] Work Phone: Start: 12-27-2023 End: 12-27-2023 Patient encounter procedure BATTERBOARD SETTER Darwin Joneserwood Work Phone: [facility] [place] Work Phone: Start: 12-27-2023 End: 12-27-2023 ambulatory BATTERBOARD SETTER Darwin Anaya Easterwood Work Phone: [facility] Work Phone: Start: 12-24-2023 End: 12-24-2023 ambulatory BATTERBOARD SETTER Darwin Anaya Easterwood Work Phone: [facility] Work Phone: Start: 12-24-2023 End: 12-24-2023 Patient encounter procedure BATTERBOARD SETTER Darwin Joneserwood Work Phone: [facility] Work Phone: Start: 11-30-2023 End: 11-30-2023 Patient encounter procedure BATTERBOARD SETTER Darwin Joneserwood Work Phone: [facility] [place] Work Phone: Start: 11-30-2023 End: 11-30-2023 ambulatory BATTERBOARD SETTER Darwin Joneserwood Work Phone: [facility] Work Phone: Start: 11-25-2023 End: 11-25-2023 ambulatory BATTERBOARD SETTER Darwin Anaya Easterwood Work Phone: [facility] Work Phone: Start: 11-25-2023 End: 11-25-2023 Patient encounter procedure BATTERBOARD SETTER Darwin Joneserwood Work Phone: [facility] Work Phone: Start: 11-18-2023 End: 11-19-2023 ambulatory RUBY WHITTINGTON Facility:[facility] Start: 11-18-2023 End: 11-18-2023 Patient encounter procedure Ruby Whittington MD Work Phone: Endocrinology Comment on above: 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); Class 2 obesity; Irregular menstruation, unspecified; Female infertility; Calculus of kidney Start: 11-01-2023 End: 11-01-2023 Patient encounter procedure SHIRLEY Laramacy Work Phone: [facility] [place] Work Phone: Start: 11-01-2023 End: 11-01-2023 ambulatory SHIRLEY Laramacy Work Phone: [facility] Work Phone: Start: 10-20-2023 End: 10-20-2023 Patient encounter procedure SHIRLEY Orosco Robertanisamacy Work Phone: [facility] [place] Work Phone: Start: 10-01-2023 End: 10-01-2023 ambulatory SHIRLEY Anaya Robert Work Phone: [facility] Work Phone: Start: 10-01-2023 End: 10-01-2023 Patient encounter procedure SHIRLEY Orosco Robert Work Phone: [facility] [place] Work Phone: Start: 09-29-2023 End: 09-29-2023 ambulatory Tyrone Rock Facility:[facility] Start: 09-29-2023 End: 09-29-2023 Patient encounter procedure Tyrone Rock [facility] Start: 09-21-2023 End: 09-21-2023 ambulatory Darwin Jones Other [facility] Other Start: 09-21-2023 Office outpatient vi sit 15 minutes Darwin Janewood [facility] Start: 08-30-2023 Patient encounter procedure BATTERBOARD SETTER Darwin Jones Work Phone: [facility]- Start: 08-25-2023 End: 08-25-2023 ambulatory Darwin Roberterwood Other [facility] Other Start: 08-25-2023 Follow-up encounter Darwin Larawood [facility] Start: 08-25-2023 End: 08-25-2023 Patient encounter procedure BATTERBOARD SETTER Darwin Jones Work Phone: [facility] Work Phone: Start: 07-23-2023 End: 07-23-2023 Patient encounter procedure BATTERBOARD SETTER Darwin Jones Work Phone: [facility] Work Phone: Start: 07-16-2023 Telephone encounter Ruby sneed MD Work Phone: Endocrinology Comment on above: Appointment Start: 06-23-2023 End: 06-23-2023 ambulatory Darwinkenan Larawood Other [facility] Other Start: 06-23-2023 Office outpatient vi sit 15 minutes Darwin Roberterwood [facility] Start: 06-08-2023 End: 06-08-2023 ambulatory FRANCY GAN Facility:[facility] Start: 06-08-2023 End: 06-08-2023 Patient encounter procedure Francy Gan PA-C Work Phone: Otolaryngology Comment on above: Dysphagia, unspecifi ed type (Primary Dx); LPRD (laryngopharyngeal reflux disease) Start: 05-26-2023 End: 05-26-2023 ambulatory Darwin Roberterwood Other [facility] Other Start: 05-26-2023 Office outpatient vi sit 25 minutes Darwin [facility]ly [facility] Start: 05-06-2023 End: 05-06-2023 ambulatory BATTERBOARD SETTER Darwin Jones Work Phone: [facility] Work Phone: Start: 05-06-2023 End: 05-06-2023 Patient encounter procedure BATTERBOARD SETTER Darwin Jones Work Phone: [facility]-Ultrasound [place] Work Phone: Start: 04-28-2023 End: 04-28-2023 ambulatory Darwin Jones Other [facility] Other Start: 04-28-2023 Office outpatient vi sit [facility] Start: 04-16-2023 End: 04-16-2023 [facility] Other [facility] Other Start: 04-16-2023 Encounter for genera l adult medical examination without abnormal findings [facility] Start: 04-16-2023 Periodic preventive med est patient 18-39 yrs [facility] Start: 04-08-2023 End: 04-08-2023 ambulatory BATTERBOARD SETTER Darwin Jones Work Phone: [facility] Work Phone: Start: 04-08-2023 End: 04-08-2023 Departed Referred BATTERBOARD SETTER Darwin Jones Work Phone: [facility]-Employee Benefit Screening Start: 03-22-2023 End: 03-22-2023 Emergency department patient visit Gabriel Curtis [facility] Start: 03-22-2023 End: 03-22-2023 Emergency department patient visit SHIRLEY Jones Work Phone: [facility]-Emergency Room Work Phone: Start: 02-28-2023 End: 02-28-2023 Departed Referred SHIRLEY Jones Work Phone: [facility]-Employee Benefit Screening Start: 02-28-2023 End: 02-28-2023 ambulatory SHIRLEY Jones Work Phone: [facility] Work Phone: Start: 02-28-2023 End: 02-28-2023 Patient encounter procedure SHIRLEY Jones Work Phone: [facility]-Corporate [facility] [address] Work Phone: Start: 12-10-2022 End: 12-10-2022 ambulatory SHIRLEY Jones Work Phone: [facility] Work Phone: Start: 12-10-2022 End: 12-10-2022 Patient encounter procedure SHIRLEY Jones Work Phone: [facility]-Lab [place] Work Phone: Start: 12-09-2022 End: 12-09-[address] NONE LISTED REQUEST Facility: Start: 12-08-2022 End: 12-08-2022 ambulatory Ofelia Mir Other [facility] Other Start: 12-08-2022 Encounter by ruben Gilbert cassidy [facility] Start: 10-22-2022 End: 10-22-2022 ambulatory Lilly Luke Other [facility] Other Start: 10-22-2022 Telephone encounter Lilly Luke [facility] Start: 10-16-2022 End: 10-16-2022 ambulatory SHIRLEY Jones Work Phone: [facility] Work Phone: Start: 10-16-2022 End: 10-16-2022 Patient encounter procedure SHIRLEY Jones Work Phone: [facility]-Lab [place] Work Phone: Start: 10-15-2022 End: 10-15-2022 ambulatory Ofelia Hester Other [facility] Other Start: 10-15-2022 Telephone encounter Ofelia Hester [facility] Start: 10-05-2022 Registered Recurring SHIRLEY Jones Work Phone: [facility]-Weight Management Work Phone: Start: 10-05-2022 ([facility]3]WMNF/U) Weight Management f/u Ofelia Hester [facility] Start: 10-05-2022 End: 10-05-2022 ambulatory Ofelia ler Other [facility] Other Start: 09-28-2022 ambulatory Ruby Whittington MD Work Phone: Endocrinology Comment on above: Synthroid Start: 09-02-2022 ([facility]3]WMNF/U) [facility] Start: 09-02-2022 End: 09-02-2022 ambulatory Ofelia ler Other [facility] Other Start: 08-25-2022 ([facility]3] NI) PHUONG joy Provider Lilly Luke [facility] Start: 08-25-2022 End: 08-25-2022 ambulatory Lilly Luke Other [facility] Other Start: 07-31-2022 ([facility]3]WMNF/U) Weight Management f/u Ofelia [facility] Start: 07-31-2022 End: 07-31-2022 ambulatory Ofelia Hester Other [facility] Other Start: 07-20-2022 End: 07-20-2022 ambulatory Lilly Luke Other [facility] Other Start: 07-20-2022 Telephone encounter Lilly E[facility]anks [facility] Start: 07-14-2022 End: 07-14-2022 Patient encounter procedure Ruby Whittington MD Work Phone: Endocrinology Comment on above: 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); Class 2 obesity Start: 07-08-2022 End: 07-08-2022 ambulatory Ofelia Hester Other [facility] Other Start: 07-08-2022 [facility]phone [facility] Start: 06-17-2022 (FCCCWMNF/U) Weight Management f/u [facility] Start: 06-17-2022 End: 06-17-2022 ambulatory Ofelia Hester Other [facility] Other Start: 06-04-2022 End: 06-04-2022 ambulatory Sima Ross Other [facility] Other Start: 06-04-2022 Office outpatient vi sit 15 minutes Sima Ross [facility] Start: 05-27-2022 End: 05-27-2022 ambulatory Lillyakilah Luke Other [facility] Other Start: 05-27-2022 IBT FOR OBESITY GROU P 2-10 30M Lillyakilah Luke [facility] Start: 05-25-2022 End: 05-25-2022 ambulatory Darwin Jones Other [facility] Other Start: 05-25-2022 Telephone encounter Geoffrey murphy MD Work Phone: Endocrinology Comment on above: Appointment (LVM for patient that appt on 05/[address] George has been rescheduled to 07/[facility] [address] [facility] with Dr. Robertson. sending mail reminder as well. ) Start: 05-19-2022 End: 05-19-2022 ambulatory Ofelia Hester Other [facility] Other Start: 05-19-2022 Telephone encounter Ofelia Hester [facility] Start: 05-18-2022 End: 05-18-2022 ambulatory Ofelia Hester Other [facility] Other Start: 05-18-2022 Nutrition therapy Ofelia Hester [facility] Start: 04-21-2022 End: 04-21-2022 ambulatory Darwin Easterwood Other [facility] Other Start: 04-21-2022 Telephone encounter Darwin Easterwood [facility] Start: 04-17-2022 End: 04-17-2022 ambulatory Darwin Easterwood Other [facility] Other Start: 04-17-2022 Office outpatient vi sit 25 minutes Darwin Easterwood [facility] Start: 04-15-2022 End: 04-15-2022 ambulatory Darwin Easterwood Other [facility] Other Start: 04-15-2022 Telephone encounter Darwin Easterwood [facility] Start: 04-14-2022 End: 04-14-2022 Patient encounter procedure PHYSICIAN [facility]-Lab [place] Start: 04-10-2022 End: 04-10-2022 ambulatory Lilly Fitt Other [facility] Other Start: 04-10-2022 Telephone encounter Lilly Luke Cha [facility] Start: 04-06-2022 End: 04-06-2022 Patient encounter procedure PHYSICIAN NO [facility]-Lab [place] Start: 02-24-2022 End: 02-24-2022 ambulatory Darwin Easterwood Other [facility] Other Start: 02-24-2022 Telephone encounter Darwin Easterwood [facility] Start: 02-18-2022 End: 02-18-2022 Emergency department patient visit Fazal Corrales [facility] Start: 02-18-2022 End: 02-18-2022 ambulatory Darwin Easterwood Other [facility] Other Start: 02-18-2022 Office outpatient vi sit 25 minutes [facility] Start: 02-18-2022 Telephone encounter [facility] Start: 02-13-2022 End: 02-13-2022 Patient encounter procedure PHYSICIAN NO [facility]-Ultrasound [place] Start: 02-11-2022 End: 02-11-2022 ambulatory Darwin Easterwood Other [facility] Other Start: 02-11-2022 Office outpatient ne w 45 minutes Darwin Easterwood [facility] Start: 02-10-2022 End: 02-10-2022 Departed Referred PHYSICIAN NO [facility]-Employee Benefit Screening Start: 09-04-2021 Chart Update Unknown Unknown [facility] Heart-[place] [address] DO Work Phone: Start: 09-03-2021 Office outpatient ne w 45 minutes Unknown Unknown [facility] 600 DO Work Phone: Procedures Date Procedure [...] ultrasoun d of gravid uterus Darwin Jones BATTERBOARD SETTER Work Phone: Start: 06-21-2024 H/O: section History of Hayden Reilly MD Work Phone: Start: 06-12-2024 Urnls dip stick/tabl et rgnt non-auto w/o micrscp Brain Seamus DO Work Phone: Start: 05-10-2024 Urnls dip stick/tabl et rgnt non-auto w/o micrscp Brain Chiango DO Work Phone: Start: 04-20-2024 URETHRITIS/DISCHARGE PLUS VAGINITIS (HTRX) Brain Way DO Work Phone: Start: 04-20-2024 Urnls dip stick/tabl et rgnt non-auto w/o micrscp Brain Seamus DO Work Phone: Start: 04-20-2024 IGP,APTIMA HPV,AGE GDLN Brainjonathan Chiango DO Work Phone: Start: 04-20-2024 Microscopic observat ion [Identifier] in Cervix by Cyto stain Hadyen Reilly MD Work Phone: Start: 04-13-2024 Blood count complete automated Not In System Ref Prov Start: 04-13-2024 Syphilis test non-treponemal antibody qual Not In System Ref Prov Start: 04-13-2024 TBH BOX TEST SENT OUT C staci Way DO Work Phone: Start: 04-08-2024 Drug scrn 1+ class nonchromo Not In System Ref Prov Start: 04-07-2024 Urnls dip stick/tabl et rgnt non-auto w/o micrscp Brain Tomzio DO Work Phone: Start: 02-13-2022 US scan of thyroid PHYS ICIAN NO FAMILY section Unknown Unk nown section Fazal Buhs er NEGATED: Highlighted row has not occurred! Total colonoscopy Unknown Unknown Plan of Treatment Date Care Activity Detail Author Start: 04-20-2027 Screening for malignant neoplasm of cervix Pap Smear [facility] Start: 03-23-2026 DTaP,Tdap and Td Vaccines (7 - Td or Tdap) DTaP,Tdap and Td Vaccines (7 - Td or Tdap) [facility] Start: 03-23-2026 Urine microalbumin profile [facility] Start: 2025 Tobacco Screening Tobacco Screening [facility] Start: 10-26-2024 End: 10-26-2024 Patient encounter procedure 10/26/2024 8:50 AM EDT Routine [facility] [address] [facility] [place] [id number] Mya Finch, PA [address] [place] [address] [place] [address] [facility] Start: 10-18-2024 End: 10-18-2024 Patient encounter procedure 10/18/2024 9:50 AM EST Routine [facility] [address] [facility] [place] [id number] Mya Finch, PA [address] [place] [address] [place], [place] [id number] [facility] Start: 10-10-2024 End: 10-10-2025 CULTURE, GROUP B STREP WITH SUSCEPTIBLITY CULTURE, GROUP B STREP WITH SUSCEPTIBLITY Lab Routine Third trimester Expected: 10/10/2024, Expires: 10/10/2025 [facility] Work Phone: Comment on [...] PM EST Routine [facility] [address] [place] [phone] Mya Finch PA [address] [place], [place] [id number] [facility] Start: 09-19-2024 End: 09-19-2024 Patient encounter procedure [facility] Comment on above: Arrived Start: 09-07-2024 End: 09-07-2024 Patient encounter procedure [facility] Comment on above: Arrived Start: 09-07-2024 End: 09-07-2025 US for US OB follow up transabdominal approach Imaging Routine size inconsistent with dates Expected: 09/07/2024, Expires: 09/07/2025 [facility] Work Phone: Comment on above: Expected: 09/07/2024, Expires: Start: 08-31-2024 End: 07-31-2025 Echo complete W/O contrast Echo complete W/O contrast Echocardiography Routine History of pericarditis Mild concentric left ventricular hypertrophy (LVH) 25 weeks gestation of Expected: 08/31/2024 (Approximate), Expires: 07/31/2025 [facility] Work Phone: Comment on above: Expected: 08/31/2024 (Approximate), Expi res: 07/31/2025 Start: 08-25-2024 [facility] Start: 08-23-2024 End: 08-23-2024 Patient encounter procedure 08/23/2024 11:00 AM EST Routine [facility] [address] [place] [address], [address] [place] [address] Arrived [facility] Comment on above: Arrived Start: 08-02-2024 End: 08-02-2024 Telemedicine consultation with patient 08/02/2024 9:00 AM EST Telemedicine [facility] [place] [address] [place] [phone] Darcy Enriquez MD [address] [place] [address] [facility] Start: 07-27-2024 End: 07-27-2024 Patient encounter procedure 07/27/2024 11:00 AM EST Appointment [facility] [place] [address] [place] [phone] [facility] Start: 07-21-2024 End: 07-21-2024 Patient encounter procedure 07/21/2024 10:00 AM EST Appointment [facility] [address] [place] [address] [facility] Start: 07-11-2024 End: 07-11-2025 CBC panel - Blood by Automated count CBC Lab Routine 22 weeks gestation of Second trimester Expected: 07/11/2024 (Approximate), Expires: 07/11/2025 [facility] Work Phone: Comment on above: Expected: 07/11/2024 (Approximate), Expi res: 07/11/2025 Start: 07-11-2024 End: 07-11-2025 Measurement of glucose 1 hour after glucose challenge for glucose tolerance test Glucose tolerance, 1 hour Lab Routine 22 weeks gestation of Second trimester Diabetes mellitus screening Expected: 07/11/2024 (Approximate), Expires: 07/11/2025 [facility] Comment on above: Expected: 07/11/2024 (Approximate), Expi res: 07/11/2025 Start: 07-11-2024 End: 07-11-2024 Patient encounter procedure 07/11/2024 10:10 AM EST Routine [facility] [address] [facility] [place] [address], DO [address] [place] [address] [facility] Start: 06-28-2024 [facility] Start: 2024 End: 2025 Echo complete W/O contrast Echo complete W/O contrast Echocardiography Routine 20 weeks gestation of History of pericarditis Expected: 2024, Expires: 2025 [facility] Work Phone: Comment on above: Expected: 2024, Expires: Start: 2024 End: 2024 Patient encounter procedure [facility] [place] Start: 06-12-2024 End: 10-13-2024 Alpha fetoprotein, maternal Alpha fetoprotein, maternal Lab Routine Second trimester 18 weeks gestation of Expected: 06/12/2024 (Approximate), Expires: 10/13/2024 [facility] Comment on above: Expected: 06/12/2024 (Approximate), Expi res: 10/13/2024 Start: 06-12-2024 End: 06-12-2025 US for US OB ANATOMY SINGLE W US OB CERVICAL LENGTH Imaging Routine Screening, , for anatomic survey Expected: 06/12/2024 (Approximate), Expires: 06/12/2025 [facility] Work Phone: Comment on above: Expected: 06/12/2024 (Approximate), Expi res: 06/12/2025 Start: 06-12-2024 End: 06-12-2024 Patient encounter procedure 06/12/2024 10:00 AM EDT Routine [facility] [address] [facility] [place] [phone] [address], DO [address] [place] [address] Arrived [facility] Comment on above: Arrived Start: 06-07-2024 End: 06-07-2024 Patient encounter procedure 06/07/2024 10:50 AM EDT Routine [facility] [address] [facility] [place] [phone], DO [address] [place] [place] [address] [facility] Start: 05-10-2024 End: 05-10-2024 Patient encounter procedure [facility] Comment on above: Arrived Start: 04-20-2024 End: 04-20-2024 Patient encounter procedure [facility] Comment on above: Arrived Start: 04-16-2024 COVID-19 Vaccine ( season) COVID-19 Vaccine () [facility] Start: 04-16-2024 Influenza vaccination [facility] Start: 04-07-2024 End: 04-07-2025 ABO/Rh ABO/Rh Lab Routine Missed menses Expected: 04/07/2024 (Approximate), Expires: 04/07/2025 [facility] Comment on above: Expected: 04/07/2024 (Approximate), Expi res: 04/07/2025 Start: 04-07-2024 End: 04-07-2025 Blood type and Indirect antibody screen panel - Blood Type and screen Lab Routine Missed menses Expected: 04/07/2024 (Approximate), Expires: 04/07/2025 [facility] Work Phone: Comment on above: Expected: 04/07/2024 (Approximate), Expi res: 04/07/2025 Start: 08-16-2023 Behavioral Health Screening Behavioral Health Screening [facility] Start: 05-06-2023 US scan of thyroid US [facility] Start: 04-16-2023 Covid-19 Vaccine (4 - 2023-24 season) Covid-19 Vaccine ( season) [facility] Start: 04-16-2023 Influenza vaccination Influenza Vaccine (#1) [facility] Start: 04-08-2023 [facility] Start: 08-16-2022 DEPRESSION ASSESSMENT DEPRESSION ASSESSMENT [facility] Start: 04-16-2022 Influenza vaccination INFLUENZA (#1) [facility] Start: 08-16-2021 DEPRESSION ASSESSMENT DEPRESSION ASSESSMENT [facility] Start: 01-10-2021 COVID-19 VACCINE (3 - Booster) COVID-19 VACCINE (3 - Booster) [facility] Start: 2017 PAP TESTING PAP TESTING [facility] Start: 2017 Screening for malignant neoplasm of cervix [facility] Start: 2015 DTaP,Tdap and Td Vaccines (1 - Tdap) DTaP,Tdap and Td Vaccines (1 - Tdap) [facility] Start: 2015 Urine microalbumin profile DTAP,TDAP,TD (1 - Tdap) [facility] Start: 2014 Adult BMI Screening Adult BMI Screening [facility] Start: 2014 ANNUAL PCP TEAM CHRONIC DISEASE VISIT ANNUAL PCP TEAM CHRONIC DISEASE VISIT [facility] Start: 2014 HEPATITIS C SCREENING HEPATITIS C SCREENING [facility] Start: 2014 Hepatitis C screening Hepatitis C Screening [facility] Start: 2014 HIV SCREENING HIV SCREENING [facility] Start: 2014 HIV screening HIV Screening [facility] Start: 2010 PEDS TO ADULT TRANSITION ANNUAL ASSESSMENT PEDS TO ADULT TRANSITION ANNUAL ASSESSMENT [facility] Start: 2008 Depression Screening Depression Screening [facility] Start: 2008 PEDS TO ADULT TRANSITION INITIAL DISCUSSION PEDS TO ADULT TRANSITION INITIAL DISCUSSION [facility] Start: 2008 Tobacco Screening Tobacco Screening [facility] Start: 2007 HPV VACCINE (1 - 2-dose series) HPV VACCINE (1 - 2-dose series) [facility] Start: 2005 HPV Vaccine (1 - 2-dose series) HPV Vaccine (1 - 2-dose series) [facility] Start: 1996 COVID-19 VACCINE (#1) COVID-19 VACCINE (#1) [facility] Start: 1996 HEPATITIS B (1 of 3 - 3-dose series) HEPATITIS B (1 of 3 - 3-dose series) [facility] Bacteria identified in Urine by Culture Urine culture Microbiology Routine Missed menses Ordered: 04/07/2024 [facility] Comment on above: Ordered: 04/07/2024 CBC W Auto Differential panel - Blood CBC and differential Lab Routine Missed menses Ordered: 04/07/2024 [facility] Comment on above: Ordered: 04/07/2024 CHLAMYDIA TRACHOMATI S (GENITO/STI) CHLAMYDIA TRACHOMATIS (GENITO/STI) Lab Routine First trimester Screen for STD (sexually transmitted disease) Vaginal discharge Ordered: 04/20/2024 [facility] Comment on above: Ordered: 04/20/2024 Cytology Cervical or vaginal smear or scraping study Pap Smear Pathology and Cytology Routine Well woman exam with routine gynecological exam Ordered: 04/20/2024 [facility] Work Phone: Comment on above: Ordered: 04/20/2024 Hemoglobin A1c/Hemoglobin.total in Blood Hemoglobin A1c Lab Routine Missed menses Ordered: 04/07/2024 [facility] Comment on above: Ordered: 04/07/2024 Hepatitis B virus surface Ag [Presence] in Serum or Plasma by Immunoassay Hepatitis B surface antigen Lab Routine Missed menses Ordered: 04/07/2024 [facility] Comment on above: Ordered: 04/07/2024 Hepatitis C virus Ab [Presence] in Serum or Plasma by Immunoassay Hepatitis C antibody Lab Routine Missed menses Ordered: 04/07/2024 [facility] Comment on above: Ordered: 04/07/2024 HIV-1/HIV-2 antigen/antibody combination immunoassay HIV-1 and HIV-2 antibodies Lab Routine Missed menses Ordered: 04/07/2024 [facility] Comment on above: Ordered: 04/07/2024 Neisseria gonorrhoea e DNA [Presence] in Unspecified specimen by LAUREN with probe detection Neisseria gonorrhea DNA probe, direct Lab Routine First trimester Screen for STD (sexually transmitted disease) Vaginal discharge Ordered: 04/20/2024 [facility] Comment on above: Ordered: 04/20/2024 Patient referral [facility] Work Phone: Progesterone [Mass/volume] in Serum or Plasma [facility] Progesterone [Mass/volume] in Serum or Plasma [facility] Progesterone [Mass/volume] in Serum or Plasma [facility] Progesterone [Mass/volume] in Serum or Plasma [facility] Progesterone [Mass/volume] in Serum or Plasma [facility] Reagin Ab [Presence] in Serum by RPR RPR Lab Routine Missed menses Ordered: 04/07/2024 [facility] Comment on above: Ordered: 04/07/2024 Rubella antibody, IgG Rubella an tibody, IgG Lab Routine Missed menses Ordered: 04/07/2024 [facility] Comment on above: Ordered: 04/07/2024 SURESWAB(R) ADVANCED VAGINITIS PLUS, TMA SURESWAB(R) ADVANCED VAGINITIS PLUS, TMA Pathology and Cytology Routine First trimester Screen for STD (sexually transmitted disease) Vaginal discharge Ordered: 04/20/2024 [facility] Comment on above: Ordered: 04/20/2024 Thyrotropin [Units/volume] in Serum or Plasma TSH Lab Routine Missed menses Ordered: 04/07/2024 [facility] Comment on above: Ordered: 04/07/2024 US Heart Transthoracic [facility] End: 07-07-2024 XR MODIFIED BARIUM SWALLOW W SPEECH THERAPY XR MODIFIED BARIUM SWALLOW W SPEECH THERAPY Radiology Routine Dysphagia, unspecified type 1 Occurrences starting 06/08/2023 until 07/07/2024 [facility] Work Phone: Comment on above: 1 Occurrences starting 06/08/2023 until 07/07/2024 [facility] Work Phone: [facility] Immunizations Immunization Date Immunization Notes Care Provider Fa cility 05-21-2023 influenza virus vaccine, unspecified formulation Tyrone Rock [facility] 05-21-2023 influenza, injectabl e, 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, 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 free 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: [facility] 05-21-2023 influenza, injectabl e, 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, contains 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 Darwin [facility] Other [facility] Other 06-15-2022 influenza, injectabl e, 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, 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 free 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: [facility] 06-15-2022 influenza, injectabl e, 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, contains 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 Darwin Easterwood Other [facility] Work Phone: 06-15-2022 influenza virus vaccine, unspecified formulation Francy Gan PA-C Work Phone: [facility] 06-15-2021 influenza nasal, unspecified formulation Ruby Whittington MD Work Phone: [facility] Work Phone: 06-15-2021 influenza virus vaccine, unspecified formulation Tyrone Rock [facility] 06-15-2021 influenza, injectabl e, 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, 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 free 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: [facility] 06-15-2021 influenza, injectabl e, 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, contains 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 Darwin Easterwood Other [facility] Work Phone: 05-15-2021 influenza nasal, unspecified formulation Ruby Whittington MD Work Phone: [facility] Work Phone: 05-15-2021 influenza virus vaccine, unspecified formulation Tyrone Rock [facility] 05-15-2021 influenza, high dose seasonal, 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-free Unknown Unknown [facility] Work Phone: 11-15-2020 [employer] COVID-19 Vacc 30 MCG/0.3ML Intramuscular Suspension Unknown Unknown [facility] 11-12-2020 COVID-19 vaccine, unknown product (NON-US) Ruby Whittington MD Work Phone: [facility] Work Phone: 10-24-2020 Pfizer-BioNTech COVID-19 Vacc 30 MCG/0.3ML Intramuscular Suspension Unknown Unknown [facility] 03-23-2016 tetanus toxoid, reduced diphtheria toxoid, and acellular pertussis vaccine, adsorbed Unknown Unknown [facility] Work Phone: 03-23-2016 varicella virus vaccine Unknown Unknown [facility] Work Phone: 03-01-2002 diphtheria, tetanus toxoids and acellular pertussis vaccine, unspecified formulation Unknown Unknown [facility] Work Phone: 03-01-2002 DTaP, unspecified formulation Tyrone [facility] 03-01-2002 measles, mumps and rubella virus vaccine Unknown Unknown [facility] Work Phone: 03-01-2002 poliovirus vaccine, inactivated Unknown Unknown [facility] Work Phone: 03-01-2002 poliovirus vaccine, unspecified formulation Tyrone Rock [facility] 04-20-2001 hepatitis B vaccine, pediatric or pediatric/adolescent dosage Unknown Unknown [facility] Work Phone: 01-03-1998 diphtheria, tetanus toxoids and acellular pertussis vaccine, unspecified formulation Unknown Unknown [facility] Work Phone: 01-03-1998 DTaP, unspecified formulation Tyrone Rock [facility] 09-18-1997 measles, mumps and rubella virus vaccine Unknown Unknown [facility] Work Phone: 09-18-1997 varicella virus vaccine Unknown Unknown [facility] Work Phone: 03-30-1997 hepatitis B vaccine, pediatric or pediatric/adolescent dosage Unknown Unknown [facility] Work Phone: 1996 diphtheria, tetanus toxoids and acellular pertussis vaccine, unspecified formulation Unknown Unknown [facility] Work Phone: 1996 DTaP, unspecified formulation Tyrone Rock [facility] 1996 trivalent poliovirus vaccine, live, oral Unknown Unknown [facility] Work Phone: 1996 diphtheria, tetanus toxoids and acellular pertussis vaccine, unspecified formulation Unknown Unknown [facility] Work Phone: 1996 DTaP, unspecified formulation Tyrone Rock [facility] 1996 haemophilus influenz ae type b vaccine, conjugate unspecified formulation Unknown [facility] Work Phone: 1996 Hib, unspecified formulation Tyrone Polancopsey [facility] 1996 trivalent poliovirus vaccine, live, oral Unknown Unknown [facility] Work Phone: 1996 diphtheria, tetanus toxoids and acellular pertussis vaccine, unspecified formulation Unknown [facility] Work Phone: 1996 DTaP, unspecified formulation Tyrone Rock [facility] 1996 diphtheria, tetanus toxoids and acellular pertussis vaccine, unspecified formulation Unknown [facility] Work Phone: 1996 DTaP, unspecified formulation Tyrone Rock [facility] 1996 haemophilus influenz ae type b vaccine, conjugate unspecified formulation Unknown [facility] Work Phone: 1996 Hib, unspecified formulation Tyrone Polancopsey [facility] 1996 measles, mumps and rubella virus vaccine Unknown Unknown [facility] Work Phone: 1996 varicella virus vaccine Unknown Unknown [facility] Work Phone: 1996 diphtheria, tetanus toxoids and acellular pertussis vaccine, unspecified formulation Unknown Unknown [facility] Work Phone: 1996 DTaP, unspecified formulation Tyrone Rock [facility] 1996 haemophilus influenz ae type b vaccine, conjugate unspecified formulation Unknown Unknown [facility] Work Phone: 1996 hepatitis B vaccine, pediatric or pediatric/adolescent dosage Unknown Unknown [facility] Work Phone: 1996 Hib, unspecified formulation Tyrone Rock [facility] 1996 trivalent poliovirus vaccine, live, oral Unknown Unknown [facility] Work Phone: 1996 hepatitis B vaccine, pediatric or pediatric/adolescent dosage Unknown Unknown [facility] Work Phone: Payers Date Payer Category Payer Self-pay [id number] 2023 Self-pay [id number] 2022 Private Health Insurance [id number] 2021 Unknown 2019 [employer] - PPO [id number] 1996 Unknown [id number] 2.16.84 0.1.877262.3.579.2.593 1996 Unknown [id number] 2.16.8 40.1.734041.3.579.2.727 1996 Unknown [id number] 2.16.8 40.1.626790.3.579.2. 1996 Unknown [id number] 2.16.8 40.1.630637.3.579.2. 1996 Unknown [id number] 2.16.840.1.728196.3.579.2.1285 1996 Unknown [id number] 2.16.840.1.847278.3.579.2.1285 1996 Unknown [id number] 2.16.840.1.493267.3.579.2.1285 1996 Unknown [id number] 2.16.840.1.428525.3.579.2.1285 1996 Unknown [id number] 2.16.8 40.1.956624.3.579.2 1996 Unknown [id number] 2.16.8 40.1.778184.3.579.2. 1996 Unknown [id number] 2.16.8 40.1.170839.3.579.2. 1996 Unknown [id number] 2.16.8 40.1.039219.3.579.2. 1996 Unknown [id number] 2.16.8 40.1.378291.3.579.2. 1996 Unknown [id number] 2.16.8 40.1.158894.3.579.2. 1996 Unknown [id number] 2.16.8 40.1.317731.3.579.2. 1996 Unknown [id number] 2.16.8 40.1.954540.3.579.2. 1996 Unknown [id number] 2.16.8 40.1.726303.3.579.2. 1996 Unknown [id number] 2.16.8 40.1.494609.3.579.2. 1996 Unknown [id number] 2.16.84 0.1.933339.3.579.2.9 1996 Unknown [id number] 2.16.84 0.1.901582.3.579.2.1258 1996 Unknown [id number] 2.16.84 0.1.841527.3.579.2.1258 1996 Unknown [id number] 2.16.84 0.1.698280.3.579.2.1258 1996 Unknown [id number] 2.16.84 0.1.359512.3.579.2.1258 1996 Unknown [id number] 2.16.84 0.1.062380.3.579.2.1258 1996 Unknown [id number] 2.16.84 0.1.523737.3.579.2.1258 1996 Unknown [id number] 2.16.84 0.1.391356.3.579.2.1258 1996 Unknown [id number] 2.16.84 0.1.774845.3.579.2.1258 1996 Unknown [id number] 2.16.84 0.1.109858.3.579.2.1258 1996 Unknown [id number] 2.16.84 0.1.343542.3.579.2.1259 1959 Unknown [id number] Unknown [id number] Unknown [id number] Unknown [id number] 2.16.8 40.1.199545.3.579.2.531 Unknown [id number] 2.16.8 40.1.144964.3.579.2.531 Unknown [id number] 2.16.8 40.1.504119.3.579.2.531 Unknown [id number] 2.16.8 40.1.300651.3.579.2.531 Unknown [id number] 2.16.8 40.1.687817.3.579.2.531 Unknown [id number] 2.16.8 40.1.298695.3.579.2.531 Unknown [id number] 2.16.8 40.1.677233.3.579.2.531 Unknown [id number] 2.16.8 40.1.509593.3.579.2.531 Unknown [id number] 2.16.8 40.1.246893.3.579.2.531 Unknown [id number] 2.16.8 40.1.035302.3.579.2.531 Unknown [id number] 2.16.8 40.1.590839.3.579.2.531 Unknown [id number] 2.16.8 40.1.149064.3.579.2.531 Unknown [id number] 2.16.8 40.1.280886.3.579.2.531 Social History Date Type Detail Facility Start: 07-14-2022 End: 03-21-2024 No alcohol use No alcohol use [place] [address] DO Work Phone: Start: 12-29-2020 End: 08-04-2023 Tobacco smoking status VTIS Never smoked tobacco (finding) [facility] Start: 1995 Sex Assigned At Female [facility] Start: 07-14-2022 End: 03-21-2024 Sex Assigned At [facility] Other Tobacco smoking status Never [facility] Tobacco smoking status [facility] Tobacco smoking consumption unknown [facility] Start: 1995 Sex Assigned At Not on file [facility] Start: 04-17-2022 End: 07-14-2022 Exposure to SARS-CoV-2 (event) Not sure [facility] Start: 07-14-2022 End: 2024 Tobacco use and exposure Smokeless tobacco non-user [facility] Start: 07-14-2022 End: 10-05-2024 Alcohol intake Lifetime non-drinker (finding) [facility] Start: 07-13-2022 Gender identity Identifies as female gender (finding) [facility] Start: 02-16-2024 [facility] Start: 03-19-2015 End: 06-23-2024 Sex Female (finding) [facility] Tobacco [facility] Comment on above: Denies Tobacco smoking status No Smoking Status Entered [facility] NEGATED: Highlighted rowStart: NINF History of tobacco use Passive smoker [facility] Medical Equipment Procedure Code Equipment Code Equipment Origin al Text Equipment Identifier Dates [place] 31G X 5 MM Start: 05-18-2022 Goals Date Patient Goal Desired Activity /State Personal health goal Functional Status Date Assessment Result Facility 10-14-2024 Functional Status N/A [facility] 09-06-2024 Functional Status N/A [facility] 09-05-2024 Functional Status N/A [facility] 09-05-2024 Functional Status N/A [facility] 03-18-2024 Functional Status N/A [facility] 09-29-2023 Functional Status N/A [facility] 03-22-2023 Functional Status N/A [facility] 02-18-2022 Functional Status N/A [facility] Clinical Notes 01-14-2022 to 10-18-2024 [place]IPOLITO Shore - 10/18/2024 9:50 AM Pavan Abreu LPN - 10/10/2024 10:50 AM HIPOLITO [...] nursing note reviewed. Exam conducted with a animal laboratory helper present. Vitals: Estimated body mass index is [...] urinalysis dipstick manually resulted 3. Anxiety, generalized (CMS/[facility]) F41.1 citalopram (CeleXA) 20 MG tablet Return [...] of: HIPOLITO Shore documented in this encounter [facility] 10-16-2024 Note Microbiology PROCEDURE: Strep Screen Culture [R1] SOURCE: Throat BODY SITE: COLLECTED DATE/TIME: 10/14/2024 09:25 EST RECEIVED DATE/TIME: 10/14/2024 13:15 EST START DATE/TIME: 10/14/2024 13:15 EST FREE TEXT SOURCE: Bordner INTERACTIVE MEDIA PROJECT MANAGER-C, Etta Bordner INTERACTIVE MEDIA PROJECT MANAGER-C, Etta FINAL REPORTS Final Report [] Verified Date/Time: 10/16/2024 09:02 EST Streptococcus Group A screen negative Performing Locations R1: This test was performed at: [facility], [address] [place] [address], [id number]- , , [facility] Comment on above: Performed By: #### [id number] #### [facility] [address] [place] [address] 10-16-2024 Note Microbiology PROCEDURE: Strep Screen Culture [R1] SOURCE: Throat BODY SITE: COLLECTED DATE/TIME: 10/14/2024 09:25 EST RECEIVED DATE/TIME: 10/14/2024 13:15 EST START DATE/TIME: 10/14/2024 13:15 EST FREE TEXT SOURCE: Bordner INTERACTIVE MEDIA PROJECT MANAGER-C, Etta Bordner INTERACTIVE MEDIA PROJECT MANAGER-C, Etta FINAL REPORTS Final Report [] Verified Date/Time: 10/16/2024 09:02 EST Streptococcus Group A screen negative Performing Locations R1: This test was performed at: [facility], [address] [place] [address], [facility] , , [facility] Comment on above: Performed By: #### [id number] #### [facility] [address] [place] [address] 10-14-2024 Evaluation + Plan note Diagnostic Tests PendingStrep Screen Culture 10/14/24 [facility] 10-14-2024 Hospital Discharg e instructions Patient Education 10/14/2024 09:30:20 Pharyngitis, Xfbn-bl-Xniw Pharyngitis Pharyngitis is a sore throat (pharynx). [...] Follow these instructions at home: Medicines Take uako-lyv-pnbehoi and prescription medicines only as told by [...] and water are not available, use hand director of manufacturing operations. Do not touch your eyes, nose, or [...] provider. Document Revised: 10/29/2021 Document Reviewed: 10/29/2021 [employer] Patient Education 2023 [employer]. Follow Up Care 10/14/2024 08:59:06 With:DARWIN JONES CNP Address: [address] [place] [address] [place] [address]- When: Unknown [facility] 10-14-2024 Note Patient Education [...] these instructions at home: Medicines ??? Take ghaj-beu-wizjnnp and prescription medicines only as told by [...] and water are not available, use hand director of manufacturing operations. ??? Do not touch your eyes, nose, [...] provider. Document Revised: 10/29/2021 Document Reviewed: 10/29/2021 [employer] Patient Education ? 2023 [employer]. [facility] 10-10-2024 History of Presen t illness Narrative [...] H/O calculus of kidney during Tiffani's disease ([facility]) 02/2022 History of Obesity (BMI 30-39.9) Pericarditis HISTORY PAST MEDICAL HISTORY SOCIAL HISTORY Past Medical History: Diagnosis Date Anxiety Blood type, Rh positive H/O calculus of kidney during Tiffani's disease ([facility]) 02/2022 History of Obesity (BMI [...] nursing note reviewed. Exam conducted with a animal laboratory helper present. Vitals: Estimated body mass index is [...] Brain Way DO documented in this encounter [facility] 10-05-2024 History of Presen [...] H/O calculus of kidney during Tiffani's disease ([facility]) 02/2022 History of Obesity (BMI 30-39.9) Pericarditis HISTORY PAST MEDICAL HISTORY SOCIAL HISTORY Past Medical History: Diagnosis Date Anxiety Blood type, Rh positive H/O calculus of kidney during Tiffani's disease ([facility]) 02/2022 History of Obesity (BMI [...] of: HIPOLITO Shore documented in this encounter [facility] 09-19-2024 History of Presen [...] H/O calculus of kidney during Tiffani's disease ([facility]) 02/2022 History of Obesity (BMI 30-39.9) Pericarditis HISTORY PAST MEDICAL HISTORY SOCIAL HISTORY Past Medical History: Diagnosis Date Anxiety Blood type, Rh positive H/O calculus of kidney during Tiffani's disease ([facility]) 02/2022 History of Obesity (BMI 30-39.9) Pericarditis [...] nursing note reviewed. Exam conducted with a animal laboratory helper present. Vitals: Estimated body mass index is [...] Brain Way DO documented in this encounter [facility] 09-07-2024 History of Presen [...] of: HIPOLITO Shore documented in this encounter [facility] 09-07-2024 Note History and [...] scheduled. Rogelio Nath M.D. leeroy Dictated: 09/05/2024 [id number] Transcribed: 09/05/2024 [facility] Comment on above: Result Comment: Deepthi dominguez Signed By: Rogelio Nath MD.jaspal\Date and Time Signed: 09/07/24 08:38 EST 09-06-2024 Hospital Discharg e instructions Patient Education 09/06/2024 16:15:07 Concussion, Adult, Uhin-uy-Nwwj Concussion, Adult A concussion is a brain [...] if you are dizzy. General instructions Take ztzy-ecm-xptyexg and prescription medicines only as told by your doctor. Avoid taking strong pain medicines (opioids) after a concussion. Do not drink alcohol until your doctor says you can. Watch your symptoms and tell other people to do the same. Other problems can occur after a concussion. Tell your glueline worker, teachers, school nurse, school counselor, hitting coach, or color strainer about your injury and symptoms. Tell them [...] the National Suicide Prevention Lifeline at or 014. This is open 24 hours a day. Text the Crisis Text Line at 791206. This information is not intended to replace advice given to you by your health care provider. Make sure you discuss any questions you have with your health care provider. Document Revised: 12/25/2022 Document Reviewed: 12/25/2022 [employer] Patient Education 2023 [employer]. Follow Up Care 09/06/2024 13:58:27 With:DARWIN JONES Address: [address] [place] [phone]- [phone] Business (1) When:09/09/2024 16:14:40 Comments:Call to schedule a follow-up appointment with your primary care provider. Use Zofran as needed for nausea/vomiting. Return to the ED with any new or worsening symptoms. [facility] 09-06-2024 Note ED Patient Education [...] you are dizzy. General instructions ??? Take gzvr-mry-dpqxodg and prescription medicines only as told by your doctor. ??? Avoid taking strong pain medicines (opioids) after a concussion. ??? Do not drink alcohol until your doctor says you can. ??? Watch your symptoms and tell other people to do the same. Other problems can occur after a concussion. ??? Tell your glueline worker, teachers, school nurse, school counselor, hitting coach, or color strainer about your injury and symptoms. Tell them [...] You have any (more content not included)... [facility] 09-06-2024 Evaluation + Plan note Extrac hamilton [...] date 09/06/24 15:25:00 EST, 09/06/24 15:25:00 EST [facility] [id number] NoteDischarge Instructions Given Worsening The following Patient Education Materials have been given to the patient: ~~ EducationMaterialMount [facility] Evaluation + Plan note Extracted from: Title:ED [...] Diagnostic Tests Pending * Urine Culture 09/05/24 [facility] 01-21-2025 Hospital Discharge instructions Patient Education 09/05/2024 04:35:45 Syncope, Adult, Qsnu-zl-Zutb Syncope, Adult Syncope is when you pass [...] you until you feel better. Medicines Take fchi-rtv-nolgpsw and prescription medicines only as told by [...] right away. Call your local emergency services ([address] [place] Do not wait to see [...] provider. Document Revised: 12/11/2021 Document Reviewed: 12/11/2021 [employer] Patient Education 2023 [employer]. 09/05/2024 04:35:45 Nausea and Vomiting, Adult, Uycd-hm-Kdex Nausea and Vomiting, Adult Nausea is feeling [...] fruit juice). ?Low-calorie sports drinks. Eat bland, tqlw-em-pmjuok foods in small amounts as you are able, such as: ?Bananas. ?Applesauce. ?Rice. ?Low-fat (lean) meats. ?Glenside. ?Crackers. Avoid drinking fluids that have a lot of sugar or caffeine in them. This includes energy drinks, sports drinks, and soda. Avoid alcohol. Avoid spicy or fatty foods. General instructions Take imol-ihf-wdpkoqp and prescription medicines only as told by your doctor. Drink enough fluid to keep your pee (urine) pale yellow. Wash your hands often with soap and water for at least 20 seconds. If you cannot use soap and water, use hand director of manufacturing operations. Make sure that everyone in your home [...] your doctor about eating and drinking. Take xshy-zul-ebajmks and prescription medicines only as told by your doctor. Contact your doctor if your symptoms get worse or you have new symptoms. Keep all follow-up visits. This information is not intended to replace advice given to you by your health care provider. Make sure you discuss any questions you have with your health care provider. Document Revised: 02/06/2022 Document Reviewed: 02/06/2022 [employer] Patient Education 2023 [employer]. 09/05/2024 04:35:45 Diarrhea, Adult, Bftp-vn-Zrhe Diarrhea, Adult Diarrhea is when you pass [...] regular sports drinks. ?Avoid alcohol. Eat bland, flrv-qv-qnepvw foods in small amounts as you are able. These foods include: ?Bananas. ?Applesauce. ?Rice. ?Low-fat (lean) meats. ?Glenside. ?Crackers. Avoid spicy or fatty foods. Medicines Take bbjp-xxn-gbhujvp and prescription medicines only as told by your doctor. If you were prescribed antibiotics, take them as told by your doctor. Do not stop taking them even if you start to feel better. General instructions Wash your hands often using soap and water for 20 seconds. If soap and water are not available, usehand director of manufacturing operations. Others in your home should wash their [...] provider. Document Revised: 01/19/2023 Document Reviewed: 01/19/2023 [employer] Patient Education 2023 [employer]. 09/05/2024 04:35:45 Dehydration, Adult, Orxg-py-Mgwj Dehydration, Adult Dehydration is a condition in [...] of fat or sugar. General instructions Take gsfm-fpe-ykchnij and prescription medicines only as told by [...] provider. Document Revised: 03/01/2023 Document Reviewed: 03/01/2023 [employer] Patient Education 2023 [employer]. Follow Up Care 09/05/2024 03:04:39 With:Brain WAY Address: [address] , [place] [address]- Business (1) When:09/07/2024 Comments:Call 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supervisory aide prescriptions at [facility] With:DARWIN [facility] Address: [address] [place] [phone]- [phone] Business (1) When:09/08/2024 Comments:Please follow-up with Dr. Way for further evaluation management. Please return to the ED for any new or worsening symptoms. [facility] [phone] NoteProgress Note-Nurse @3471 OB RN arrived in patient room in ER room 14. Patient placed on & ctx monitor. Patient ctx every 2-5 min 40-60 sec with some 20-30sec irritability. Ctx mild to palpation. Pt rates them 4/10 on pain scale. reactive for gestation with baseline HR of 130. RN will report finding to OB Dr Nath and ask about admission for further evaluation on OB unit.[facility]01-21-2025 NoteED Patient Education Note Gastroenterology Nausea and [...] ? Low-calorie sports drinks. ??? Eat bland, xkrj-jl-hjxftu foods in small amounts as you are able, such as: ? Bananas. ? Applesauce. ? Rice. ? Low-fat (lean) meats. ? Glenside. ? Crackers. ??? Avoid drinking fluids that have a lot of sugar or caffeine in them. This includes energy drinks, sports drinks, and soda. ??? Avoid alcohol. ??? Avoid spicy or fatty foods. General instructions ??? Take qxwr-djp-ordkxno and prescription medicines only as told by your doctor. ??? Drink enough fluid to keep your pee (urine) pale yellow. ??? Wash your hands often with soap and water for at least 20 seconds. If you cannot use soap and water, use hand director of manufacturing operations. ??? Make sure that everyone in your [...] doctor about eating and drinking. ??? Take sxnc-efx-wsymxnv and prescription medicines only as told by your doctor. ??? Contact your doctor if your symptoms get worse or you have new symptoms. ??? Keep all follow-up visits. This information is not intended to replace advice given to you by your health care provider. Make sure you discuss any questions you have with your health care provider. Document Revised: 02/06/2022 Document Reviewed: 02/06/2022 [employer] Patient Education ? 2023 [employer] Infectious Disease Diarrhea, Adult Diarrhea is [...] Take an ORS (ora (more content not included)...[facility] 08-25-2024 Evaluation note* Diagnosis Onset Date Resolution Status Admit Date Class 2 obesity with body ma ss index (BMI) of 37.0 to 37.9 in adult acute August 25 11:56am Tiffani's disease acute 2024 11:56am Hypothyroidism acute August 252024 11:56am Mild left ventricular hypertrophy acute August 25 11:56am Second trimester acute August 25, 2024 11:56am [facility] Work Phone: 1(598) 339-586101-08-2025 History of Present illness Narrative* Aleisha Abreu [...] H/O calculus of kidney during Tiffani's disease ([facility]) 02/2022 History of Obesity (BMI [...] nursing note reviewed. Exam conducted with a animal laboratory helper present. Vitals: Estimated body mass index is [...] of: Brain Way DO [id number] History of Present illness Narrative* Aleisha Abreu [...] H/O calculus of kidney during Tiffani's disease ([facility]) 02/2022 History of Obesity (BMI 30-39.9) Pericarditis HISTORY PAST MEDICAL HISTORY SOCIAL HISTORY Past Medical History: Diagnosis Date Anxiety Blood type, Rh positive H/O calculus of kidney during Tiffani's disease ([facility]) 02/2022 History of Obesity (BMI 30-39.9) Pericarditis [...] nursing note reviewed. Exam conducted with a animal laboratory helper present. Vitals: Estimated body mass index is [...] of: Brain Way DO documented [facility] [id number] History of Present illness Narrative* Laura Herron [...] male Have you been seen here at [facility] in a previous ? No Recent ER visits or hospitalizations? no Bring blood sugar log or meter with you today? (Please bring them with you for every visit at [facility]) n/a Flu vaccine (Jun-October)? Yes Any [...] effusion. Also she was then evaluated by fountain worker who told her that she had pericarditis and that resolved with a taking Motrin however she did not had an echocardiogram. Saw Dr. Coronado. 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 Yes NotIn System Ref Prov ph781-fnne-[id number] acid ( 19) 29 mg iron- 1 [...] would recommend she establishes care with a grain broker for it to be further evaluated 7. [...] Please refer her locally to see a grain broker for the incidental finding on the CT [...] Hayden Reilly MD, FACOG (she/hers) Maternal- Medicine [place] [id number] [facility] [address] [place] [address] This document was created with Therasis technology. Though I make every effort to review the dictation as it is transcribed, on occasion the spoken word can be misinterpreted by the technology leading to inappropriate words, phrases, or sentences. This note is addressed to the requesting provider as a consultation for clinical guidance. Specificmedical abbreviations are occasionally used and those are generally approved by the Cam[place]?Board of?Obstetrics and?Gynecology?as well as?Lauryn s abbreviations. The above plan of care was based solely on the diagnoses for which a consultation was requested. ?More frequent testing may be indicated based on her other medical/obstetrical conditions. The management of other or medical conditions is beyond the scope of requested consultation and will c ontinue to be followed by the primary engraved roller inspector or primary care provider. Note to patient: [...] opinion of the practitioner. [facility]iology [facility] Main [place] [address] [place] [address] Ultrasound Report Signed Patient: Tawnya Herring MR#: [id number] : 1995 Acct:[id number] Age/Sex: 28 / F ADM Date: 4 Loc: Room: Type: [facility] CLI Attending Dr: Brain Way DO Ordering [...] Norton Jr., D.O.06/22/2024 4:00 PM Dictation Location: [place] Tech: Rae De Paz Transcribed By: AGUILAR 06/22/24 1600 Dictated By: Zay Norton Jr, DO 06/22/24 1552 Signed By: 06/22/24 1600 [facility]10-28-2024 History of Present illness Narrative * [...] H/O calculus of kidney during Tiffani's disease ([facility]) 02/2022 History of Obesity (BMI 30-39.9) Pericarditis HISTORY PAST MEDICAL HISTORY SOCIAL HISTORY Past Medical History: Diagnosis Date Anxiety Blood type, Rh positive H/O calculus of kidney during Tiffani's disease ([facility]) 02/2022 History of Obesity (BMI [...] pericarditis post last . We will send [facility] referral Follow Up: Patient is to return to office in 4 week for routine OB appointment. Documented by HIPOLITO Shore on behalf of: Brain Way DO documented in this encounterRipley County Memorial [id number] Evaluation note* Diagnosis Onset Date Resolution Status Admit Date Well adult exam noneactive May 11, 2024 10:46am [facility] Work Phone: [phone]) 353-487809-25-2024 History of Present illness Narrative* Aleisha Abreu [...] H/O calculus of kidney during Tiffani's disease ([facility]) 02/2022 History of Obesity (BMI 30-39.9) Pericarditis HISTORY PAST MEDICAL HISTORY SOCIAL HISTORY Past Medical History: Diagnosis Date Anxiety Blood type, Rh positive H/O calculus of kidney during Tiffani's disease ([facility]) 02/2022 History of Obesity (BMI [...] nursing note reviewed. Exam conducted with a animal laboratory helper present. Vitals: Estimated body mass index is [...] of: Brain Way DO documented in this encounterRipley County Memorial [id number] History of Present illness Narrative* Coral Rg [...] H/O calculus of kidney during Tiffani's disease ([facility]) 02/2022 History of Obesity (BMI 30-39.9) Pericarditis HISTORY PAST MEDICAL HISTORY SOCIAL HISTORY Past Medical History: Diagnosis Date Anxiety Blood type, Rh positive H/O calculus of kidney during Tiffani's disease ([facility]) 02/2022 History of Obesity (BMI 30-39.9) Pericarditis [...] nursing note reviewed. Exam conducted with a animal laboratory helper present. Vitals: Estimated body mass index is [...] obtained without difficulty and [facility]. Patient advised to take ASA 81mg. Orders Placed This Encounter Procedures CHLAMYDIA TRACHOMATIS (GENITO/STI) Neisseria gonorrhea DNA probe, direct POCT urinalysis dipstick manually resulted Follow Up: Patient is to return to our office in 4 weeks for routine OB appointment Documented by Coral Rg LPN on behalf of: Brain Way DO documented in this encounterRipley County Memorial [id number] History of Present illness Narrative* Thelma Elizabeth [...] H/O calculus of kidney during Tiffani's disease ([facility]) 02/2022 History of Obesity (BMI 30-39.9) Pericarditis [...] undercooked meat, and stay away from [facility]. Patient has also been advised to [...] by: Thelma Elizabeth LPN documented in this encounterRipley County Memorial [id number] Hospital Discharge instructions Patient Education 03/18/2024 12:15:03 [...] provider. Document Revised: 01/31/2021 Document Reviewed: 01/31/2021 [employer] Patient Education 2022 CriticalBlue. 03/18/2024 12:15:03 Subchorionic Hematoma Subchorionic Hematoma A [...] provider. Document Revised: 04/28/2021 Document Reviewed: 04/28/2021 [employer] Patient Education 2022 CriticalBlue. Follow Up Care 03/18/2024 08:08:01 With:Rogelio Nath Address: [address] [place] [address]- Business (1) When:03/21/2024 11:54:39 With:DARWIN ROBERT Address: [address] [facility] [place] [phone] Business (1) When:Within 3 Day(s) [facility] 08-03-2024 NoteED Patient Education Note [...] provider. Document Revised: 01/31/2021 Document Reviewed: 01/31/2021 [employer] Patient Education ? 2022 CriticalBlue. Subchorionic Hematoma A hematoma is a collection of blood outside of the blood vessels. A subchorionic hematoma is a collection of blood between the outer wall of the embryo (chorion) and the inner wall of the uterus. This condi (more content not included)...[facility]04-04-2024 NoteHNO ID: [id number] Author: RUBY WHITTINGTON MD Service: ? Author [...] RTN 1 year. Ruby Whittington MD Endocrinology StaffSouthwest General Health Center04-04-2024 History of Present illness Narrative* Ruby [...] Whittington MD Endocrinology Staff documented in this encounterAultman Hospital04-04-2024 Instructions* Patient Instructions* Odalis Greene - 11/18/2023 7:58 AM EDT Thank you for [facility] the [facility] Department of Endocrinology, Diabetes and Metabolism. Did you know that you need to call 48 hours in advance of your scheduled visit, if you are unable to make your appointment? The Endocrinology and Metabolism [facility] thanks you for your commitment, because patients not showing to their appointment results in a lost opportunity for patients to receive [facility] health care at the [facility]. To Cancel an appointment, please choose one of the following: - Call the Appointment Call Center at [phone] - From [email or web address][employer]in, Go to Appointments - Cancel Appts If cancelling, consider your need to reschedule to prevent further delays in your care. To Schedule an appointment, please choose one of the following: - Call the Appointment Call Center at [phone] - From [email or web address], Go to Appointments - Request an Appt documented in this encounterAultman Hospital02-14-2024 Hospital Discharge instructions Patient Education 09/29/2023 [...] numbers. This can be done either in [place]ese (U.S[place] or metric measurements. Note that charts and online BMI calculators are available to help you find your BMI quickly and easily without having to do these calculations yourself. To calculate your BMI in Burmese ([place] measurements: 1.Measure your weight in pounds [...] Centers for Disease Control and Prevention: www.cdc.gov [place] Heart Association: www.heart.org National Heart, Lung, and Blood [place]: www.nhlbi.nih.gov Summary Body mass index (BMI) is a number that is calculated from a person's weight and height. BMI may help estimate how much of a person's weight is composed of fat. BMI can help identify thosewho may be at higher risk for certain medical problems. BMI can be measured using Burmese measurements or metric measurements. BMI charts are used to identify whether you are underweight, normal weight, overweight, or obese. This information is not intended to replace advice given to you by your health care provider. Make sure you discuss any questions you have with your health care provider. Document Revised: 04/24/2020 Document Reviewed: 03/01/2020 [employer] Patient Education 2022 CriticalBlue. 09/29/2023 11:04:59 Sinus Infection, Adult Sinus Infection, [...] saline washes). ?Medicines that treat allergies (antihistamines). ?Zksr-rzt-xeigfkx pain relievers. 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 Do not smoke. Avoid being around people [...] provider. Document Revised: 07/07/2022 Document Reviewed: 07/07/2022 [employer] Patient Education 2022 [employer] Follow Up Care 09/29/2023 09:12:00 With:DARWIN JONES CNP Address: [address] [facility] [address]- When: Unknown [facility] 02-06-2024 Evaluation [...] is required on scripts in the state [facility]. Sep, Other *Progress note was completed with the assistance of voice recognition software for dictation purposes. Please excuse any grammatical errors that were not corrected during review process. [facility] Other 01-10-2024 Evaluation note* Encounter Date Diagnosis [...] that were not corrected during review process. [facility] Other 12-01-2023 Miscellaneous Notes* Telephone Encounter - Kenan Gomez - 07/16/2023 9:39 AM EST LVM to let patient know their appt has been rescheduled with Dr. Whittington. documented in this encounterAultman Hospital11-08-2023 Evaluation note* Encounter Date Diagnosis Assessment [...] comfortable prescribing this medication at this time. [facility] Other 10-24-2023 NoteHNO ID: [id number] Author: Francy Gan PA-C Service: ? 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 [employer] Floor[employer] Type: Progress Notes Filed: 06/08/2023 2:53 PM [...] will be in touch with results via [email or web address].int HPI: Tawnya is a 27 year old [...] testing/treatment Medical Decision Making Level: 3 - [facility] History of Present illness Narrative* Francy [...] will be in touch with results via Qumuhart HPI: Tawnya is a 27 year old [...] Level: 3 - Low documented in this encounterAultman Hospital10-24-2023 Instructions* Patient Instructions* Francy Gan PA-C - 06/08/2023 2:16 PM EDT Continue the omeprazole for another 1.5 months documented in this [facility]10-11-2023 Evaluation note* Encounter Date Diagnosis Assessment [...] that were not corrected during review process. [facility] Other 09-13-2023 Evaluation note* Encounter Date Diagnosis [...] Discussed short term 8 week course vs. nursing home management. Discussed pros and cons of [...] that were not corrected during review process. [facility] Other 09-01-2023 Evaluation note* Encounter Date Diagnosis [...] SCANNED INTO PATIENT CHART AND FAXED TO [facility]. Apr, Other We did briefly discussed the [...] that were not corrected during review process. [facility] Other 08-08-2023 Hospital Discharge instructions Patient Education 03/22/2023 22:52:44 Urinary Tract Infection, Adult, Ozvv-ao-Hymf Urinary Tract Infection, Adult A urinary tract [...] Follow these instructions at home: Medicines Take djfl-dfw-yveynka and prescription medicines only as told by [...] provider. Document Revised: 03/14/2021 Document Reviewed: 03/14/2021 [employer] Patient Education 2022 CriticalBlue. Follow Up Care 03/22/2023 19:54:03 With:DARWIN JONES Address: [address] [facility] [facility] [place] [place] [phone] Business (1) When:03/25/2023 Comments:Follow-up with your primary care provider in 3 to 5 days. If symptoms worsen, do not improve, or new symptoms arise please report back to emergency department for further evaluation. [facility]08-07-2023 Evaluation + Plan note Diagnostic Tests Pending * Urine Culture 03/22/23 [facility]03-02-2023 Evaluation note* Encounter Date Diagnosis Assessment Notes Treatment Notes Treatment Clinical Notes Oct, Nausea & vomiting (ICD-10 - R11.2) [facility] Other 02-20-2023 Evaluation note* Encounter Date Diagnosis [...] Encounter for weight management (ICD-10 - Z76.89) [facility] Other 02-13-2023 Miscellaneous Notes* Addendum Note - [...] daily. Ruby Whittington MD documented in this encounterAultman Hospital01-18-2023 Evaluation note* Encounter Date Diagnosis Assessment [...] Encounter for weight management (ICD-10 - Z76.89) [facility] Other 01-10-2023 Evaluation note* Encounter Date Diagnosis [...] as inspiration Patient set the following goals: [facility] Other 12-16-2022 Evaluation note* Encounter Date Diagnosis [...] E06.3) She was recently seen by an defence force senior officer at [facility] for elevated TSH. She is currently on adequate supplementation and will follow up with them. Jul, Daytime sleepiness (ICD-10 - R40.0) Continue to work on good sleep hygiene and control factors that she can.This could also improve with additional water intake. 16 Jul, 2022 Mild depression (ICD-10 - F32.9) Jul, Encounter for weight management (ICD-10 - Z76.89) [facility] Other 11-29-2022 History of Present illness Narrative* [...] Thyroid problem. 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 [address] [place] [address] documented in this encounterAultman Hospital11-29-2022 Instructions* Patient Instructions* Soo Begum Ma - 07/14/2022 8:46 AM EST Thank you for choosing the [facility] Department of Endocrinology, Diabetes and Metabolism. Did you know that you need to call 48 hours in advance of your scheduled visit, if you are unable to make your appointment? The [facility]inology [facility] Met[facility] thanks you for your commitment, because patients not showing to their appointment results in a lost opportunity for patients to receive [facility] health care at the [facility]. To Cancel an appointment, please choose one of the following: - Call the Appointment Call Center at [phone] - From [email or web address], Go to Appointments - Cancel Appts If cancelling, consider your need to reschedule to prevent further delays in your care. To Schedule an appointment, please choose one of the following: - Call the Appointment Call Center at [phone] - From [email or web address], Go to Appointments - Request an Appt documented in this encounterAultman Hospital11-02-2022 Evaluation note* Encounter Date Diagnosis Assessment [...] samples and titrate her up slowly until [facility] insurance kicks in in August. We [...] will discuss at later date if needed. [facility] Other 10-20-2022 Evaluation note* Encounter Date Diagnosis [...] Pt understood and agreed to tx plan. [facility] Other 10-12-2022 Evaluation note* Encounter Date Diagnosis [...] patient set personal goal using given handout. [facility] Other 10-10-2022 Miscellaneous Notes* Telephone Encounter - Linn Hancock - 05/25/2022 2:35 PM EDT LVM for patient that appt on 05/[address] George has been rescheduled to 07/[facility] Dr. Robertson. sending mail reminder as well. documented in this encounterAultman Hospital10-10-2022 Evaluation note* Encounter Date Diagnosis Assessment Notes Treatment Notes Treatment Clinical Notes May, Tiffani's disease (ICD-10 - E06.3) [facility] Other 10-03-2022 Evaluation note* Encounter Date Diagnosis [...] admits to some daytime sleepiness with an Greeley score of 7. Her Mallampati is not [...] of a comprehensive approach to obesity management [facility] Other 09-02-2022 Evaluation note* Encounter Date Diagnosis [...] to start the weight management program at [facility] in the coming months.Nothing further needed [...] that were not corrected during review process. [facility] Other 07-07-2022 Hospital Discharge instructions Patient Education [...] Follow these instructions at home: Medicines Take irmy-ukl-bwpabra and prescription medicines only as told by [...] 04/27/2002 Document Revised: 08/05/2018 Document Reviewed: 05/14/2017 [employer] Patient Education 2020 CriticalBlue. 02/18/2022 22:49:49 Migraine Headache Migraine Headache A [...] Follow these instructions at home: Medicines Take ueol-jgc-hbllaxi and prescription medicines only as told by your health care provider. Ask your health care provider if the medicine prescribed to you: ?Requires you to avoid driving or using heavy machinery. ?Can cause constipation. You may need to take these actions to prevent or treat constipation: ?Drink enough fluid to keep your urine pale yellow. ?Take aqht-asx-gswetgp or prescription medicines. ?Eat foods that are [...] 08/02/2006 Document Revised: 11/24/2019 Document Reviewed: 09/14/2019 [employer] Patient Education 2019 CriticalBlue. Follow Up Care 02/18/2022 20:32:17 With:DARWIN JONES Address: [facility] [place] [address]- [phone] Business (1) When:Within 3 Day(s) [facility]07-06-2022 Evaluation + Plan noteExtracted from: [...] voices understanding and is agreeable to plan. [facility]07-06-2022 Evaluation note* Encounter Date Diagnosis [...] and remind her of lab draw at [facility]. Feb, Thyromegaly (ICD-10 - E01.0) Discussed [...] that were not corrected during review process. [facility] Other 07-01-2022 History general Narrative - Reported* Type Description Date Medical History Anxiety Medical History pericardi tis- Resolved cardiology signed off Medical History Kidney stones during Medical History Tiffani's disease February 2022 Medical History Abnormal thyroid ult rasound February 2022 work-up pending by ENT Surgical History 2019 Surgical History Cystoscopy 05/2021 Surgical History 2020 Hospitalization History See surgical hx [facility] Other 07-01-2022 History general Narrative - Reported* Type Description Date Medical History Anxiety Medical History pericardi tis- Resolved cardiology signed off Medical History Kidney stones during Medical History Tiffani's disease February 2022 Medical History Abnormal thyroid ult rasound February 2022 work-up pending by ENT Medical History Parathyroid adenoma Surgical History 2019 Surgical History Cystoscopy 05/2021 Surgical History 2020 Hospitalization History See surgical hx [facility] Other 06-29-2022 Evaluation note* Encounter Date Diagnosis [...] that were not corrected during review process. 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 documented in this encounter [facility]* Diagnosis 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 documented in this encounter [facility]* Diagnosis Dysphagia, unspecified type- Primary LPRD (laryngopharyngeal reflux disease) Other diseases of larynx documented in this encounter [facility]* Diagnosis Onset Date Resolution Status Obesity [facility] Work Phone: evaluation note* Diagnosis 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 Irregular menstruation, unspecified Female infertility Female infertility of unspecified origin Calculus of kidney [facility]* Diagnosis Onset Date Resolution Status Obesity acute Class 2 obesity with body ma ss index (BMI) of 37.0 to 37.9 in adult [facility] Work Phone: evaluation note* Diagnosis Onset Date Resolution Status Obesity acute Class 2 obesity with body ma ss index (BMI) of 37.0 to 37.9 in adult acute Class 2 obesity with body ma ss index (BMI) of 37.0 to 37.9 in adult [facility] Work Phone: evaluation note* Diagnosis Onset Date Resolution Status Class 2 obesity with body ma ss index (BMI) of 37.0 to 37.9 in adult acute Class 2 obesity with body ma ss index (BMI) of 37.0 to 37.9 in adult [facility] Work Phone: evaluation note* Diagnosis Onset Date Resolution Status Class 2 obesity with body ma ss index (BMI) of 37.0 to 37.9 in adult [facility] Work Phone: evaluation note* Diagnosis Onset Date Resolution Status Well adult exam noneactive [facility] Work Phone: evaluation note* Diagnosis Second trimester state, incidental 18 weeks gestation of Screening, , for anatomic survey Encounter for anatomic survey documented in this encounter [facility] HealthcareEvaluation note* Diagnosis 22 weeks gestation of Second trimester state, incidental Nausea and vomiting during Diabetes mellitus screening Screening for diabetes mellitus documented in this encounter [facility] HealthcareEvaluation note* Diagnosis Missed menses documented in this encounter [facility] HealthcareEvaluation note* Diagnosis First trimester state, incidental Well woman exam with routine gynecological exam Routine gynecological examination Screen for STD (sexually transmitted disease) Screening examination for venereal disease Vaginal discharge Leukorrhea, not specified as infective documented in this encounter [facility] HealthcareEvaluation note* Diagnosis Second trimester state, incidental documented in this encounter [facility] Healthcare[facility] note* Diagnosis 29 weeks gestation of Third trimester state, incidental Gastroesophageal reflux in documented in this encounter [facility] HealthcareEvaluation note* Diagnosis Third trimester state, incidental 31 weeks gestation of size inconsistent with dates documented in this encounter [facility] HealthcareEvaluation note* Diagnosis 32 weeks gestation of Third trimester state, incidental Abnormal TSH documented in this encounter [facility] HealthcareEvaluation note* Diagnosis 20 weeks gestation [...] type Depression affecting [facility] History of pericarditis- Primary Mild concentric left ventricular hypertrophy (LVH) 25 weeks gestation of [facility] Diagnosis 35 weeks gestation of Third trimester state, incidental documented in this encounter [facility] HealthcareEvaluation note* Diagnosis Third trimester state, incidental 36 weeks gestation of Excessive growth affecting management of , antepartum, single or unspecified fetus documented in this encounter [facility] HealthcareEvaluation note* Diagnosis 37 weeks gestation of Third trimester state, incidental Anxiety, generalized (CMS/HCC) documented in this encounter [facility] HealthcareHistory general Narrative - Reported* Type Description [...] Surgical History 2020 Hospitalization History See surgical Fanzy Other History general Narrative - Reported* Type [...] History 2020 Hospitalization History See surgical hx Fanzy Other History general Narrative - Reported* Type [...] History 2020 Hospitalization History See surgical hx Fanzy Other History of Present illness Narrative* Patient [...] no other testing or intervention appears necessary. -[facility] 600 DO Work Phone: Hospital course Narrative No data available for this section [facility] No data available for this section [facility] InstructionsNot on filedocumented in this encounter [facility]* Attachments The following attachments cannot be sent through Care Everywhere. * Preeclampsia (Burmese) [facility] SystemInstructionsNot on file documented in this [facility]ProA[facility] SystemProgress note No data available for this section [facility] ([facility])* Reason Dr. 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) Referral Organization [facility] Referring Provider First Name Darwin Referring Provider Last Name [facility] Referring Provider Specialty Nurse Pract itioner Referred Provider Specialty Endocrinolog y Referral Priority Routine [place] [facility] Other Reason for referral (narrative)* Diagnostic Procedure Only (Routine) - Pending Review Specialty Diagnoses / Procedures Referred By Clint scott Referred To Contact XR IMAGING Diagnoses Dysphagia, unspecified type Procedures XR MODIFIED BARIUM SWALLOW W SPEECH THERAPY RADIOLOGIC EXAM SWALLOW FUNCTION CONTRAST STUDY Francy Gan PA-C [address] [place] [id number] Xr Imaging [facility] Referral ID Status Reason Start Date Expiration Date Visits Requested Visits Authorized [id number] Pending Review Auto-Generat ed Referral 3 07/07/2024 1 1 [facility] Chief Complaint TAWNYA HERRING is being [...] Dysphagia, unspecifi ed type (R13.10) Referral Organization [facility] Referring Provider First Name Darwin Referring Provider Last Name [facility] Referring Provider Specialty Nurse Pract christine Referred Organization [facility] Referred Address [address] [place], [place],[address] Referred Provider Specialty Ear, Nose an d Throat Referral Priority Routine Reason ABNORMAL US OF THYRO ID Newly discovered [employer] Diagnosis 1 Thyromegaly (E01.0) Referral Organization [facility] Referring Provider First Name Darwin Referring Provider Last Name [facility] Referring Provider Specialty Nurse Pract christine Referred Provider Specialty Ear, Nose an d Throat Referral Priority Routine Additional Source Comments INFORMATION SOURCE (unrecogn ized section and content) DATE CREATED AUTHOR 09/04/2021 [facility] DATE CREATED AUTHOR AUTHOR'S ORGANIZ ATION 12/18/[address] [facility] DATE CREATED AUTHOR AUTHOR'S ORGANIZ ATION 11/22/2023 [facility] DATE CREATED AUTHOR AUTHOR'S ORGANIZ ATION 03/20/2024 [facility] DATE CREATED AUTHOR AUTHOR'S ORGANIZ ATION 08/05/2024 [facility] DATE CREATED AUTHOR AUTHOR'S ORGANIZ ATION 09/06/2024 [facility] DATE CREATED AUTHOR AUTHOR'S ORGANIZ ATION 09/08/2024 [facility] DATE CREATED AUTHOR AUTHOR'S ORGANIZ ATION 09/13/2024 [facility] DATE CREATED AUTHOR AUTHOR'S ORGANIZ ATION 10/15/2024 [facility] DATE CREATED AUTHOR AUTHOR'S ORGANIZ ATION 10/16/2024 [facility] DATE CREATED AUTHOR AUTHOR'S ORGANIZ ATION 10/17/2024 [facility] DATE CREATED AUTHOR AUTHOR'S ORGANIZ ATION 10/20/2024 [facility] DATE CREATED AUTHOR AUTHOR'S ORGANIZ ATION 10/21/2024 [facility] Care Teams (unrecognized sec tion [...] [address] Attending Provider Active Start: [facility] 2023 End: November 01, 2023 Team Status: Inactive Member Role Status Dates Darwin Jones APRN Primary Care Pr ovider, Attending Provider Active Start: November 25, 2023 End: November 25, 2023 Team Status: Inactive Member Role Status Dates Darwin Jones APRN Primary Care Provider Active Start: November 30, 2023 End: November 30, [address] Attending Provider Active Start: [facility] 2023 End: November 30, 2023 Team Status: [...] Active Saad Valera DO Attending Provider Active [employer] Relationship Specialty Start Date End Date Darwin Jones CNP [address] [address] Referring Family Medicine 04/22/22 [employer] Relationship Specialty Start Date End Date Darwin Jones CNP [address] [address] Referring Family Medicine 04/22/22 Team Status: Inactive Member Role Status Dates Darwin Jones APRN Primary Care Provider Active Jeovanny Quiros DO Emergency Provider Active [employer] Relationship Specialty Start Date End Date Darwin Jones CNP [address] [facility] [address] [place] [address] Referring Family Medicine 04/22/22 [employer] Relationship Specialty Start Date End Date Darwin Jones CNP [address] [facility] [address] [place] [address] Referring Family Medicine 04/22/22 Team Status: Inactive Member Role Status Dates Darwin Jones APRN Attending Provider Active Start: July 23, 2023 End: July 23, 2023 Team Status: Inactive Member Role Status Dates Darwin Jones APRN Attending Provider Active Start: August 25, 2023 End: August 25, 2023 [employer] Relationship Specialty Start Date End Date Darwin Jones CNP [address] [address] Referring [facility] 04/22/22 Team Status: Inactive Member Role Status [...] End: April 06, 2024 Addi PERES DO [facility] Attending Provider Active Start: April [...] 2024 End: June 22, [address] , DO Attending Provider Active Start : June 22, 2024 End: June 22, 2024 Team Status: Inactive Member Role Status Dates Darwin Jones APRN Primary Care Provider Active Start: June 28, 2024 End: June 28, [address] , DO Attending Provider [...] September 21, 2024 End: September 21, 2024 [employer] Relationship Specialty Start Date End Date No Pcp, [place] [address] PCP - General Family Medicine 08/19/19 [employer] Relationship Specialty Start Date End Date No Pcp, [place] [address] PCP - General Family Medicine 08/19/19 [employer] Relationship Specialty Start Date End Date No Pcp, [place] [address] PCP - General Family Medicine 08/19/19 Goals [...] George has been rescheduled to 07/08 at [facility] with Dr. Robertson. sending mail reminder [...] or prosecute any alcohol or drug abuse patient.[facility] Hospital[facility] the event this information is protected by the Federal Confidentiality of Alcohol and Drug Abuse Patient Records regulations: The Federal rules restrict any use of the information to criminally investigate or prosecute any alcohol or drug abuse patient.[facility] HospitalIn the event this information is protected by the Federal Confidentiality of Alcohol and Drug Abuse Patient Records regulations: The Federal rules restrict any use of the information to criminally investigate or prosecute any alcohol or drug abuse patient.[facility] HospitalIn the event this information is protected by the Federal Confidentiality of Alcohol and Drug Abuse Patient Records regulations: The Federal rules restrict any use of the information to criminally investigate or prosecute any alcohol or drug abuse patient.[facility] HospitalIn the event this information is protected by the Federal Confidentiality of Alcohol and Drug Abuse Patient Records regulations: The Federal rules restrict any use of the information to criminally investigate or prosecute any alcohol or drug abuse patient.[facility] HospitalIn the event this information is protected by the Federal Confidentiality of Alcohol and Drug Abuse Patient Records regulations: The Federal rules restrict any use of the information to criminally investigate or prosecute any alcohol or drug abuse patient.[facility] FOR RECORDS PERTAINING TO PATIENTS WHO [...] THE PRIMARY CLINICAL RECORDS. [facility] Outcome Referrals [facility]. provides no warranty or guarantee of the accuracy or completeness of information in this document.
[2024-10-23 20:38] VITALS: BP 180/86; PULSE 99
[2024-10-23 20:39] VITALS: BP 136/77; PULSE 97
== END 2024-10-23 21:20 | disposition home or self-care (01) ==
LOC: FBCO 20:29 → FBC 20:31
PROVIDERS: PCP Nurse Practitioner Family; Visit Provider Obstetrics & Gynecology
DX: O36.63X0 Maternal care for excessive fetal growth, third trimester, not applicable or unspecified (principal); Z3A.37 37 weeks gestation of pregnancy
CPT/HCPCS: 59025

== ENCOUNTER 2024-10-26 08:59 | Outpatient (OUT) | payer OTHER, SELFPAY ==
--- NOTE | 2024-10-26 09:03 | US_ITS ---
[facility] [place] [id number] Patient Name: BARBY HERRING MRN: [id number] date: 1995 Sex: F Assigned Patient Location: [facility] Current Patient Location: Accession/Order Number: [id number] Exam Date: 10/26/2024 09:50 Report Date: 10/26/2024 09:53 At the request of: GAMAL ADAN DO Procedure: US OB BPP w non-stress BIOPHYSICAL PROFILE: CLINICAL INFORMATION: Excessive growth COMPARISON: 10/21/2024 There is a single live intrauterine gestation in cephalic presentation. The reported gestational age is 38 weeks 1 day. The heart rate [id number] beats per minute. FINDINGS: TONE: 1 or more episodes of activity extension and flexion of extremity or opening and closing of the hand [Y] 2/2 GROSS BODY MOVEMENTS: 3 or more discrete body or limb movements [Y] 2/2 BREATHING MOVEMENTS: 1 or more episodes of breathing lasting at least 30 seconds [Y] 2/2 LIEN: A single deepest vertical pocket of amniotic fluid greater than 2 cm [Y] 2/2 LIEN: 25.3 cm. This is borderline polyhydramnios (95th percentile 26.7 cm). Total score: 03/23 US/US OB BPP w non-stress IMPRESSION: NORMAL BIOPHYSICAL PROFILE. CONTINUED BORDERLINE POLYHYDRAMNIOS Impression dictated by: Aleisha Tapia M.D.10/26/2024 9:53 AM Dictation Location: [place] [address] Electronically authenticated by: [id number] Date: 10/26/2024 09:53
[2024-10-26 09:23] VITALS: BP 120/76; PULSE 111
== END 2024-10-26 09:45 | disposition home or self-care (01) ==
LOC: US 08:59 → FBC 09:01
PROVIDERS: PCP Nurse Practitioner Family; Visit Provider Obstetrics & Gynecology
DX: O36.63X1 Maternal care for excessive fetal growth, third trimester, fetus 1 (principal); Z3A.38 38 weeks gestation of pregnancy
CPT/HCPCS: 76818

== ENCOUNTER 2024-10-30 09:57 | Outpatient (OUT) | payer OTHER, SELFPAY ==
[2024-10-30 10:05] VITALS: BP 139/71; PULSE 101
== END 2024-10-30 10:30 | disposition home or self-care (01) ==
LOC: FBCO 09:57 → FBC 09:58
PROVIDERS: PCP Nurse Practitioner Family; Visit Provider Obstetrics & Gynecology
DX: O36.63X0 Maternal care for excessive fetal growth, third trimester, not applicable or unspecified (principal); Z3A.38 38 weeks gestation of pregnancy
CPT/HCPCS: 59025

== ENCOUNTER 2024-10-31 06:27 | Inpatient (IN) | payer OTHER, SELFPAY ==
[2024-10-31] VITALS (52 sets, daily range): BP systolic 83–148; BP diastolic 39–99; PULSE 97–136; TEMP 36.4–36.9; O2SAT 90–100
--- OUTSIDE RECORDS SUMMARY | 2024-10-31 06:31 | XMS_ITS | CCD ---
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 Name Role Phone Unknown, Unknown Unavailable Unavailable Unavailable Unavailable NO FAMILY, PHYSICIAN Primary Care Provider Unava ilable DO Addi Ortega Attending Provider Darwin Jones Unavailable DARWIN JONES Primary Care Physician [phone] Lilly Luke Unavailable SHIRLEY Jones Primary Care Provider SHIRLEY Jones Attending Provider DO Saad Valera Attending Provider [phone] Ofelia Hester Unavailable [facility] AMIE Darwin Unavailable Sima Ross Unavailable [facility] AMIE Darwin Unavailable SHIRLEY Jones Primary Care Provider SHIRLEY Hester Attending Provider SHIRLEY Jones Primary Care Provider [phone] SHIRLEY Hester Attending Provider Brain Way Attending Provider [phone] REQUEST, DR HOBSON LISTED Primary Care Unavaila ble SEAMUS ., DR YEUNG Attending Unavailable SEAMUS ., DR YEUNG Consulting Unavailable SEAMUS ., DR YEUNG Admitting Unavailable SHIRLEY Jones Primary Care Provider DO Addi Ortega Attending Provider [phone] [facility] Primary Care Provider DO Jeovanny Quiros Emergency Provider [facility] Primary Care Provider DO Addi Ortega Attending Provider [phone] [facility] Attending Provider [facility] Primary Care Provider Brain Way Attending Provider [facility] Primary Care Provider Brain Way Attending Provider RUBY WHITTINGTON Attending Unavailable FRANCY GAN Attending Unavailable [facility] Primary Care Provider Brain Way Attending Provider [facility] Primary Care Provider DO Brain Way Attending Provider [place] Attending Unavailable Gabriel Curtis Attending Unavailable Tyrone Rock Attending Unavailable [facility] Primary Care Provider DO Brain Way [facility] Attending Provider SHIRLEY Jones Primary Care Provider DO Brain Way Attending Provider SHIRLEY Jones Primary Care Provider DO Brain Way Attending Provider [phone] Unavailable [facility] Darwin Jones APRN Primary Care Provider [phone] [facility] Addi SELLERS Attending Provider Brain Way DO Attending Provider [phone] SEAMUS, BRAIN R Referring Unavailable NO PCP, NO PCP Primary Care Unavailable HAYDEN REILLY P Attending Unavailable NO PCP, NO PCP Primary Care Unavailable HAYDEN REILLY P Referring Unavailable DARCY ENRIQUEZ Attending Unavailable SEAMUS, BRAIN R Referring Unavailable NO PCP, NO PCP Primary Care Unavailable [place] Darwin WATSON Primary Care Provider Brain Way DO Attending Provider [phone] Mary Ellen Bruce MD Attending Provider DO Gabriel Curtis Attending Unavailable [place] Attending Unavailable Rogelio Nath Attending Unavailable Rogelio Nath Admitting Unavailable Rogelio Nath Attending Unavailable Rogelio Nath Admitting Unavailable Flash Franco Attending Unavailable [place] Darwin WATSON Primary Care Provider [phone] DO Attending Provider [phone] No Pcp, No Pcp Primary Care Provider Unavailabl e Darwin Jones Primary Care Unavailable Seamus, Brain Attending Unavailable Seamus, Brain Admitting Unavailable EasterwoodDarwin Primary Care Unavailable Seamus, Brain Attending Unavailable Seamus, Brain Admitting Unavailable Seamus, Brain Attending Unavailable EasterDarwin cavazos Primary Care Unavailable Seamus, Brain Admitting Unavailable Seamus, Brain Attending Unavailable EastDarwin brooks Primary Care Unavailable Seamus, Brain Admitting Unavailable Janis Mary Ellen Admitting Unavailable Mary Ellen Bruce Attending Unavailable EasterDarwin cavazos Primary Care Unavailable Mary Ellen Bruce Attending Unavailable EastDarwin brooks Primary Care Unavailable Janis Mary Ellen Admitting Unavailable Seamus, Brain Attending Unavailable Darwin [...] Brain Attending Unavailable Seamus, Brain Admitting Unavailable JanecentervilleDarwin J Primary Care Unavailable Seamus, Brain Attending Unavailable Seamus, Brain Admitting [facility]available [facility] Admitting Unavailable [facility], Addi P Attending Unavailable Darwin Jones Primary Care Unavailable Lesley Blanco Admitting Unavailable Lesley Blanco Attending Unavailable Lesley Blanco Attending Unavailable STEF, MYA Attending Unavailable SEAMUS, BRAIN Attending Unavailable STEF, MYA Attending Unavailable SEAMUS, BRAIN Attending Unavailable STEF, MYA Attending Unavailable STEF, MYA Attending Unavailable SEAMUS, BRAIN Attending Unavailable SEAMUS, BRAIN Attending Unavailable SEAMUS, BRAIN Attending Unavailable SEAMUS, BRAIN Attending Unavailable SEAMUS, BRAIN Attending Unavailable Allergies Allergy Classification Reported Allergen(s) Allergy Type Date of Onset Reaction(s) Facility (6 sources) No Known Medication Allergies; Translations: [No Known Medication Allergies] Propensity to adverse reactions (disorder) [facility] Repository Medications Current Medications Medication Drug Class(es) [...] tablet (2 sources) Opioid Agonist Start: 06-03-2021 Alverda 325 mg-5 mg oral tablet 2 tab(s), [...] # 20 tab(s), Refills(s) 0, Pharmacy: [facility], 170.2, cm, 09/29/23 10:44:00 EST, [...] # 28 cap(s), Refills(s) 0, Pharmacy: [facility], 170.2, cm, 03/22/23 20:14:00 EDT, Height/Length Dosing, 113.5, kg, 03/22/23 20:14:00 EDT, Weight Dosing Start Date: 03/22/23 Stop Date: 03/29/23 Status: Ordered Start: 07-03-2021 take 1 capsule by mo uth twice daily Keflex 500 mg Cap 500 mg = 1 cap(s), Oral, BID, # 10 cap(s), Refills(s) 0, Pharmacy: [facility], 170, cm, 06/27/21 10:56:00 EST, Height/Length [...] Ordered Start: 08-25-2024 take 1 capsule by [facility] once daily Levothyroxine 100 mcg capsule [...] # 21 tab(s), Refills(s) 0, Pharmacy: [facility], 170.2, cm, 09/29/23 10:44:00 EST, [...] Apr, Active take 1 capsule by mo [facility] once daily omeprazole (PRILOSEC) 20 [...] Date: 02/18/22 Stop Date: 02/21/22 Status: Ordered Tey251-Xpqyqip Fumarate-Fa () 28-800 mg-mcg Tablet (20 sources) Start: 12-29-2020 Gmi552-Ibenwgt Fumarate-Fa () 28-800 mg-mcg Tablet Active TAB PO December 29, 2020 3:43pm Start: 12-29-2020 End: 10-07-2023 Wsl862-Wfayyjc Fumarate-Fa ( ) 28-800 mg-mcg Tablet Discontinued TAB PO December 28, 2020 11:00pm October 07, 2023 6:06pm Start: 12-29-2020 End: 10-07-2023 Cmo505-Asfmnpn Fumarate-Fa ( ) 28-800 mg-mcg Tablet Discontinued TAB PO December 29, 2020 12:00am October 07, 2023 7:06pm Start: 12-29-2020 Nvv888-Wsptwzn Fumarate-Fa () 28-800 mg-mcg Tablet Active TAB PO December 28, 2020 11:00pm Start: 12-29-2020 Bba637-Cfuarkw Fumarate-Fa () 28-800 mg-mcg Tablet Active TAB PO December 29, 2020 12:00am -jaaz fum-folic ac-o m3 (One Daily ) (12 sources) Start: 08-25-2024 aqoqcs89-lzse fum-folic ac-om3 (One Daily ) Active 1 PKG PO Daily August 25, 2024 12:10pm Start: 05-11-2024 End: 08-25-2024 wwulgc79-bbok fum-folic ac-o m3 (One Daily ) Discontinued PO May 10, 2024 11:00pm August 25, 2024 12:11pm Start: 05-11-2024 mezvkj34-bptg fum-folic ac-om3 (One Daily ) Active PO May 10, 2024 11:00pm Start: 05-11-2024 rkypib81-nifc fum-folic ac-om3 (One Daily ) Active PO May 11, 2024 12:00am MV-Min-Fe Fum-FA-DHA ( 1 PO) (20 sources) MV-Min- Fe Fum-FA-DHA ( 1 PO) Take 1 each by mouth Daily Active hg167-viix-ijuwh acid ( 19) 29 mg iron- 1 mg tablet,chewable (2 sources) gz849-yoem-zyhoh acid ( 19) 29 mg iron- 1 [...] source) Vitamin B12 cyanocobalamin/f olic acid (VITAMIN S15-IKLDZ ACID) 1,000-400 mcg lozg Take by mouth [...] Start: 05-26-2023 take 1 capsule by mo [facility] every twenty-four hours Phentermine HCl [...] [37 weeks gestation of ] 10-18-2024 Episodic Residual codes; unclassified (2 sources) Gestation period, 38 weeks; Translations: [38 weeks gestation of ] 10-26-2024 Episodic Syncope (1 source) Syncope and collapse; [...] Range Facility OB BPP W NON-STRESS on 10-26-[address] [address] Ultrasound Report Signed Patient: TAWNYA HERRING MR#: [id number] : 1995 Acct:[id number] Age/Sex: 29 / F ADM Date: 10/26/24 Loc: US Attending Dr: Brain Way D.O. Ordering Physician: Brain Way D.O. Date of Service: 10/26/24 Procedure(s): OB BPP w non-stress Accession Number(s): [id number] cc: Darwin Jones PHOTOGRAPH PRINTER; Brain Way D.O. [address] [address] Patient Name: TAWNYA HERRING MRN: TBH:[id number] date: 1995 Sex: F Assigned Patient Location: [facility] Current Patient Location: Accession/Order Number: [id number] Exam Date: 10/26/2024 09:50 Report Date: 10/26/2024 09:53 At the request of: BRAIN WAY DO Procedure: US OB BPP w non-stress BIOPHYSICAL PROFILE: CLINICAL INFORMATION: Excessive growth COMPARISON: 10/21/2024 There is a single live intrauterine gestation in cephalic presentation. The reported gestational age is 38 weeks 1 day. The heart rate bwchneja857 beats per minute. FINDINGS: TONE: 1 or [...] greater than 2 cm [Y] 2/2 LIEN: 25.3 cm. This is borderline polyhydramnios (95th percentile 26.7 cm). Total score: 03/23 US/US OB BPP w non-stress IMPRESSION: NORMAL BIOPHYSICAL PROFILE. CONTINUED BORDERLINE POLYHYDRAMNIOS Impression dictated by: Aleisha Tapia M.D.10/26/2024 9:53 AM Dictation Location: [place] [address] Electronically authenticated by: [id number] Y Date: 10/26/2024 09:53 Dictated By: Aleisha Tapia M.D. Signed By: 10/26/24954 DD/ 2 TD/TT: Machine Bander And Cellophaner: [facility] Radiology, Radiologi MD diane - 10/26/2024 [place] [address] Ultrasound Report Signed Patient: TAWNYA HERRING MR#: [id number] : 1995 Acct:[id number] Age/Sex: 29 / F ADM Date: 10/26/24 Loc: US Attending Dr: Brain Way D.O. Ordering Physician: Brain Way D.O. Date of Service: 10/26/24 Procedure(s): US OB BPP w non-stress Accession Number(s): [id number] cc: Darwin Jones PHOTOGRAPH PRINTER; Brain Way D.O. The [place] [address] Patient Name: TAWNYA HERRING MRN: [facility]:[id number] date: 1995 Sex: F Assigned Patient Location: [facility] Current Patient Location: Accession/Order Number: [id number] Exam Date: 10/26/2024 09:50 Report Date: 10/26/2024 09:53 At the request of: BRAIN WAY DO Procedure: US OB BPP w non-stress BIOPHYSICAL PROFILE: CLINICAL INFORMATION: Excessive growth COMPARISON: 10/21/2024 There is a single live intrauterine gestation in cephalic presentation. The reported gestational age is 38 weeks 1 day. The heart rate dqfetqnu179 beats per minute. FINDINGS: TONE: 1 or [...] greater than 2 cm [Y] 2/2 LIEN: 25.3 cm. This is borderline polyhydramnios (95th percentile 26.7 cm). Total score: 03/23 US/US OB BPP w non-stress IMPRESSION: NORMAL BIOPHYSICAL PROFILE. CONTINUED BORDERLINE POLYHYDRAMNIOS Impression dictated by: Aleisha Tapia M.D.10/26/2024 9:53 AM Dictation Location: [place] [address] Electronically authenticated by: [id number] Y Date: 10/26/2024 09:53 Dictated By: Aleisha Tapia M.D. Signed By: 10/26/2455 DD/ 2 TD/TT: Machine Bander And Cellophaner: [facility] Radiology Study observation (narrative) [facility] OB BPP W NON-STRESS Ordered By: Radiologist Radiology on 10-26-2024 [facility] Work Phone: Urinalysis macro (dipstick) panel (U)on 10-26-2024 Bilirubin, UA Negative Negative - 4(70) +++ mg/dL [facility] Blood, UA Positive Negative - 50 Dain/mcL [facility] Comment on above: trace-intact Clarity, UA Clear [facility] Color, UA Wendy [facility] Glucose, UA Negative Negative - 1999(110) ++++ mg/dL [facility] Interpretation and review of laboratory results Abnormal [facility] Ketones, UA Positive Negative - 160(16) ++++ mg/dL [facility] Comment on above: trace Leukocytes, UA Positive Negative - 500+++ Chaparrita/mcL [facility] Comment on above: small Nitrite, UA Negative Negative - Positive [facility] pH, UA 6.5 5 - 9 [facility] Protein, UA Trace Negative - 1999(20) ++++ mg/dL [facility] Spec Grav, UA 1.025 1 - 1.03 [facility] Urobilinogen, UA 0.2 0.2 - 12 mg/dL [facility] Urinalysis macro (dipstick) panel (U)on 10-18-2024 Bilirubin, UA Negative Negative - 4(70) +++ mg/dL [facility] Blood, UA Positive Negative - 50 Dain/mcL [facility] Comment on above: small Clarity, UA Clear [facility] Color, UA Straw [facility] Glucose, UA Negative Negative - 2000(110) ++++ mg/dL [facility] Interpretation and review of laboratory results Abnormal [facility] Ketones, UA Negative Negative - 160(16) ++++ mg/dL [facility] Leukocytes, UA Positive Negative - 500+++ Chaparrita/mcL [facility] Comment on above: small Nitrite, UA Negative Negative - Positive [facility] pH, UA 7 5 - 9 [facility] Protein, UA Trace Negative - 2000(20) ++++ mg/dL [facility] Spec Grav, UA 1.02 1 - 1.03 [facility] Urobilinogen, UA 0.2 0.2 - 12 mg/dL [facility] ALL MISCELLANEOUS TESTon MISCELLANEOUS TEST COMMENT . [facility] Comment on above: Test Ordered: [id number] Strep Gp B Culture+Rflx Strep Gp B Culture+Rflx Negative CB Reference Range: Negative Centers for Disease Control and Prevention (CDC) and [place] [employer] of Obstetricians and Gynecologists (ACOG) guidelines [...] resistance to clindamycin is noted. Performed at: [facility] [address] [id number] Manager Gyn: Alexis Ashton PhD, Phone: [phone] GBS CX WITH SUSEPTIBILITY [facility] Ambulatory Visit Summaryon 0 10-14-2024 Ambulatory [...] Up with DARWIN JONES CNP When: Where: [address] [place] [address]- Medications What How Much When Instructions Unchanged [...] these instructions at home: Medicines ??? Take aufh-lfa-sgifoha and prescription medicines only as told by [...] doctor. ??? (more content not included)... Normal [facility] Family Medicine Office/Clini c Noteon 10-14-2024 Family [...] with voice recognition software. Occasional wrong-word or ???lzueu-p-zfnv??? substitutions may have occurred due to the [...] tx plan. Ordered: Influenza Type A&B POC 20655 Rapid Strep POC 73492 Strep Screen Culture 2. Exposure to strep throat (Z20.818: Contact with and (suspected) exposure to other bacterial communicable diseases) Rapid strep negative, will send for culture to confirm. 3. Exposure to influenza (Z20.828: Contact with and (suspected) exposure to other viral communicable diseases) Rapid Flu A/B negative. Congestion of nasal sinus (R09.81: Nasal congestion) Ordered: Influenza Type A&B POC 11403 Rapid Strep POC 12185 Follow-up With When Contact Information DARWIN JONES CNP [address] [facility] [place] [address]- Additional Instructions: Patient Education Pharyngitis, Yszt-ix-Eegm Problem List/Past Medical History Ongoing Anxiety Kidney [...] - De (more content not included)... Normal [facility] Comment on above: Result Comment: Elec tronically Signed By: Bella GARCÍA, Etta\.br\Date and Time Signed: 10/14/24 09:31 EST US OB GROWTHon 10-13-2024 [place] [address] Ultrasound Report Signed Patient: TAWNYA HERRING MR#: [id number] : 1995 Acct:[id number] Age/Sex: 29 / F ADM Date: 10/13/24 Loc: US Attending Dr: Brain Way D.O. Ordering Physician: Brain Way D.O. Date of Service: 10/13/24 Procedure(s): US OB growth Accession Number(s): [id number] cc: Darwin Jones PHOTOGRAPH PRINTER; Brain Way D.O. [address] [address] Patient Name: TAWNYA HERRING MRN: [id number] date: 1995 Sex: F Assigned Patient Location: [facility] Current Patient Location: Accession/Order Number: [id number] Exam Date: 10/13/2024 13:36 Report Date: 10/13/2024 [...] Aleisha Tapia M.D.10/13/2024 1:44 PM Dictation Location: [place] [address] Electronically authenticated by: [id number] Y Date: 10/13/2024 13:44 Dictated By: Aleisha Tapia M.D. Signed By: 10/13/24 1347 DD/ 1341 TD/TT: Machine Bander And Cellophaner: [facility] Radiology, Radiologi st, MD - 10/13/2024 [place] [address] Ultrasound Report Signed Patient: TAWNYA HERRING MR#: [id number] : 1995 Acct:[id number] Age/Sex: 29 / F ADM Date: 10/13/24 Loc: US Attending Dr: Brain Way D.O. Ordering Physician: Brain Way D.O. Date of Service: 10/13/24 Procedure(s): US OB growth Accession Number(s): [id number] cc: Darwin Jones PHOTOGRAPH PRINTER; Brain Way D.O. The [place] [address] Patient Name: TAWNYA HERRING MRN: [facility]:[id number] date: 1995 Sex: F Assigned Patient Location: [facility] Current Patient Location: Accession/Order Number: [id number] Exam Date: 10/13/2024 13:36 Report Date: 10/13/2024 [...] Aleisha Tapia M.D.10/13/2024 1:44 PM Dictation Location: [employer] Electronically authenticated by: [id number] Y Date: 10/13/2024 13:44 Dictated By: Aleisha Tapia M.D. Signed By: 10/13/24 1347 DD/ 1344 TD/TT: Machine Bander And Cellophaner: [facility] Radiology Study observation (narrative) [facility] US OB GROWTHOrdered By: Halima ologleighton Radiology on 10-13-2024 [facility] Work Phone: Urinalysis macro (dipstick) panel (U)on 10-10-2024 Bilirubin, UA Negative Negative - 4(70) +++ mg/dL [facility] Blood, UA Negative Negative - 50 Dain/mcL [facility] Clarity, UA Clear [facility] Color, UA Yellow [facility] Glucose, UA Negative Negative - 2000(110) ++++ mg/dL [facility] Interpretation and review of laboratory results Abnormal [facility] Ketones, UA Negative Negative - 160(16) ++++ mg/dL [facility] Leukocytes, UA Trace Negative - 500+++ Chaparrita/mcL [facility] Nitrite, UA Negative Negative - Positive [facility] pH, UA 7 5 - 9 [facility] Protein, UA Trace Negative - 1999(20) ++++ mg/dL [facility] Spec Grav, UA 1.015 1 - 1.03 [facility] Urobilinogen, UA 1.0 0.2 - 12 mg/dL [facility] US OB BPP W NON-STRESS on 10-05-[address] [address] Ultrasound Report Signed Patient: TAWNYA HERRING MR#: [id number] : 1995 Acct:[id number] Age/Sex: 29 / F ADM Date: Loc: [facility] 254-[address]: Brain Way D.O. Ordering Physician: Brain Way D.O. Date of Service: 10/04/24 Procedure(s): US OB BPP w non-stress Accession Number(s): [id number] cc: Darwin Jones PHOTOGRAPH PRINTER; Brain Way D.O. [facility] [address] [place] [address] Patient Name: TAWNYA HERRING MRN: [id number] date: 1995 Sex: F Assigned Patient Location: [facility] Current Patient Location: [facility] Accession/Order Number: [id number] Exam Date: 10/05/2024 10:54 Report Date: 10/05/2024 10:58 At the request of: BRAIN WAY DO Procedure: US OB BPP w non-stress BIOPHYSICAL PROFILE: CLINICAL INFORMATION: decreased movement COMPARISON: 09/28/2024 There is a fetus in cephalic presentation. The reported gestational age is 35 weeks 0 days. The heart rate abznlsdw490 beats per minute. FINDINGS: TONE: 1 or [...] Aleisha Tapia M.D.10/05/2024 10:58 AM Dictation Location: [employer] Electronically authenticated by: [id number] Y Date: 10/05/2024 10:58 Dictated By: Aleisha Tapia M.D. Signed By: 10/05/24 1239 DD/ 1058 TD/TT: Machine Bander And Cellophaner: [facility] Radiology Radiolognoel contreras MD - 10/05/2024 [place] [address] Ultrasound Report Signed Patient: TAWNYA HERRING MR#: [id number] : 1995 Acct:[id number] Age/Sex: 29 / F ADM Date: Loc: [facility] 254-[address]: Brain Way D.O. Ordering Physician: Brain Way D.O. Date of Service: 10/04/24 Procedure(s): US OB BPP w non-stress Accession Number(s): [id number] cc: Darwin Jones PHOTOGRAPH PRINTER; Brain Way D.O. The [place] [address] Patient Name: TAWNYA HERRING MRN: [facility]:[id number] date: 1995 Sex: F Assigned Patient Location: [facility] Current Patient Location: [facility] Accession/Order Number: [id number] Exam Date: 10/05/2024 10:54 Report Date: 10/05/2024 10:58 At the request of: BRAIN WAY DO Procedure: US OB BPP w non-stress BIOPHYSICAL PROFILE: CLINICAL INFORMATION: decreased movement COMPARISON: 09/28/2024 There is a fetus in cephalic presentation. The reported gestational age is 35 weeks 0 days. The heart rate ysdejoxn666 beats per minute. FINDINGS: TONE: 1 or [...] Aleisha Tapia M.D.10/05/2024 10:58 AM Dictation [facility] Electronically authenticated by: [id number] Y Date: 10/05/2024 10:58 Dictated By: Aleisha Tapia M.D. Signed By: 10/05/24 1239 DD/ 1058 TD/TT: Machine Bander And Cellophaner: [facility] Radiology Study observation (narrative) [facility] US OB BPP W NON-STRESS Ordered By: Radiologist Radiology on 10-05-2024 [facility] Work Phone: Urinalysis macro (dipstick) panel (U)on 10-05-2024 Bilirubin, UA Negative Negative - 4(70) +++ mg/dL [facility] Blood, UA Negative Negative - 50 Dain/mcL [facility] Clarity, UA Clear [facility] Color, UA Yellow [facility] Glucose, UA Negative Negative - 1999(110) ++++ mg/dL [facility] Interpretation and review of laboratory results Abnormal [facility] Ketones, UA Negative Negative - 160(16) ++++ mg/dL [facility] Leukocytes, UA Positive Negative - 500+++ Chaparrita/mcL [facility] Comment on above: small Nitrite, UA Negative Negative - Positive [facility] pH, UA 7 5 - 9 [facility] Protein, UA Negative Negative - 2000(20) ++++ mg/dL [facility] Spec Grav, UA 1.02 1 - 1.03 [facility] Urobilinogen, UA 0.2 0.2 - 12 mg/dL [facility] US OB BPP W NON-STRESS on 09-29-[address] [address] Ultrasound Report Signed Patient: TAWNYA HERRING MR#: [id number] : 1995 Acct:[id number] Age/Sex: 29 / F ADM Date: 09/28/24 Loc: US Attending Dr: Brain Way D.O. Ordering Physician: Brain Way D.O. Date of Service: 09/28/24 Procedure(s): US OB BPP w non-stress Accession Number(s): [id number] cc: Darwin Jones PHOTOGRAPH PRINTER; Brain Way D.O. The [place] [id number] Patient Name: TAWNYA HERRING MRN: [facility]:[id number] date: 1995 Sex: F Assigned Patient Location: [facility] Current Patient Location: Accession/Order Number: [id number] Exam Date: 09/28/2024 19:56 Report Date: 09/29/2024 [...] Signed By: 09/29/24 0734 DD/ 0732 TD/TT: Machine Bander And Cellophaner: [facility] Radiology, Radiologi MD diane - 09/29/2024 [place] [address] Ultrasound Report Signed Patient: TAWNYA HERRING MR#: [id number] : 1995 Acct:[id number] Age/Sex: 29 / F ADM Date: 09/28/24 Loc: US Attending Dr: Brain Way D.O. Ordering Physician: Brain Way D.O. Date of Service: 09/28/24 Procedure(s): US OB BPP w non-stress Accession Number(s): [id number] cc: Darwin Jones PHOTOGRAPH PRINTER; Brain Way D.O. [place] [id number] Patient Name: TAWNYA HERRING MRN: [facility]:[id number] date: 1995 Sex: F Assigned Patient Location: [facility] Current Patient Location: Accession/Order Number: [id number] Exam Date: 09/28/2024 19:56 Report Date: 09/29/2024 [...] Signed By: 09/29/24 0734 DD/ 0732 TD/TT: [employer] Cell[employer]: [facility] Radiology Study observation (narrative) [facility] US OB BPP W NON-STRESS Ordered By: Radiologist Radiology on 09-29-2024 [facility] [employer] Work Phone: US OB BPP W NON-STRESS on 09-22-[address] [address] Ultrasound Report Signed Patient: TAWNYA HERRING MR#: [id number] : 1995 Acct:[id number] Age/Sex: 29 / F ADM Date: 09/22/24 Loc: [facility] 252-[address]: Brain Way D.O. Ordering Physician: Brain Way D.O. Date of Service: 09/22/24 Procedure(s): US OB BPP w non-stress Accession Number(s): [id number] cc: Darwin Jones PHOTOGRAPH PRINTER; Brain Way D.O. The [place] [id number] Patient Name: TAWNYA HERRING MRN: [facility]:[id number] date: 1995 Sex: F Assigned Patient Location: [facility] Current Patient Location: [facility] Accession/Order Number: [id number] Exam Date: 09/22/2024 11:07 Report Date: 09/22/2024 [...] Signed By: 09/22/24 1138 DD/ 1135 TD/TT: [employer] Cell[employer]: [facility] Radiology, Radiolognoel contreras MD - 09/22/[address] [address] Ultrasound Report Signed Patient: TAWNYA HERRING MR#: [id number] : 1995 Acct:[id number] Age/Sex: 29 / F ADM Date: 09/22/24 Loc: [facility] 252-[address]: Brain Way D.O. Ordering Physician: Brain Way D.O. Date of Service: 09/22/24 Procedure(s): US OB BPP w non-stress Accession Number(s): [id number] cc: Darwin Jones PHOTOGRAPH PRINTER; Brain Way D.O. [place] [address] Patient Name: TAWNYA HERRING MRN: [id number] date: 1995 Sex: F Assigned Patient Location: [facility] Current Patient Location: [facility] Accession/Order Number: [id number] Exam Date: 09/22/2024 11:07 Report Date: 09/22/2024 [...] Signed By: 09/22/24 1138 DD/ 1135 TD/TT: [employer]: [facility] Radiology Study observation (narrative) [facility] US OB BPP W NON-STRESS Ordered By: Radiologist Radiology on 09-22-2024 [facility] Work Phone: Thyroid Stimulating Hormoneo n 09-21-2024 TSH Qn 2.52 m[IU]/L Normal 0.45-5.33 The [facility] Comment on above: Result Comment: PERF ORMED BY: [place] [address] PATHOLOGIST PAINTER AND DECORATOR MIS SCHMIDT M.D. Performed By: #### T SH3 #### [address] Thyrotropin [Units/volume] i n Serum or PlasmaOrdered By: Brain Way on 09-21-2024 TSH Qn Thyrotropin [Units/v olume] in Serum or Plasma 0.45-5.33 [facility] Urinalysis macro (dipstick) panel (U)on 09-19-2024 Bilirubin, UA Positive Negative - 4(70) +++ mg/dL [facility] Comment on above: small Blood, UA Negative Negative - 50 Dain/mcL [facility] Clarity, UA Clear [facility] Color, UA Wendy [facility] Glucose, UA Negative Negative - 2000(110) ++++ mg/dL [facility] Interpretation and review of laboratory results Abnormal [facility] Ketones, UA Positive Negative - 160(16) ++++ mg/dL [facility] Comment on above: trace Leukocytes, UA Negative Negative - 500+++ Chaparrita/mcL [facility] Nitrite, UA Negative Negative - Positive [facility] pH, UA 6 5 - 9 [facility] Protein, UA Positive Negative - 2000(20) ++++ mg/dL [facility] Comment on above: 30 Spec Grav, UA 1.025 1 - 1.03 [facility] Urobilinogen, UA 1.0 0.2 - 12 mg/dL [facility] US OB BPP W NON-STRESS on 09-15-2024 [place] [address] Ultrasound Report Signed Patient: TAWNYA HERRING MR#: [id number] : 1995 Acct:[id number] Age/Sex: 29 / F ADM Date: 09/14/24 Loc: [facility] 254-[address]: Brain Way D.O. Ordering Physician: Brain Way D.O. Date of Service: 09/14/24 Procedure(s): US OB BPP w non-stress Accession Number(s): [id number] cc: Darwin Jones NP; Brain Way D.O. The [address] [address] Patient Name: TAWNYA HERRING MRN: [facility]:[id number] date: 1995 Sex: F Assigned Patient Location: US Current Patient Location: Accession/Order Number: [id number] Exam Date: 09/14/2024 19:57 Report Date: 09/15/2024 [...] M.D. Signed By: 09/15/24616 DD/ 4 TD/TT: Machine B[employer] Cellophaner: [facility] Radiology, Radiologi MD diane - 09/15/2024 [place] [address] Ultrasound Report Signed Patient: TAWNYA HERRING MR#: [id number] : 1995 Acct:[id number] Age/Sex: 29 / F ADM Date: 09/14/24 Loc: [facility] 254-[address]: Brain Way D.O. Ordering Physician: Brain Way D.O. Date of Service: 09/14/24 Procedure(s): US OB BPP w non-stress Accession Number(s): [id number] cc: Darwin Jones NP; Brain Way D.O. [place] [address] Patient Name: TAWNYA HERRING MRN: [id number] date: 1995 Sex: F Assigned Patient Location: US Current Patient Location: Accession/Order Number: [id number] Exam Date: 09/14/2024 19:57 Report Date: 09/15/2024 [...] M.D. Signed By: 09/15/24616 DD/ 4 TD/TT: Machine B[employer] Cell[employer]er: [facility] Radiology Study observation (narrative) [facility] US OB BPP W NON-STRESS Ordered By: Radiologist Radiology on 09-15-2024 [facility] Work Phone: [facility] echo transthoracicon ECH echo transthoracic [facility] [place] [address] Echocardiogram Signed Patient: Tawnya Shay MR#: [id number] : 1995 Acct:[id number] Age/Sex: 29 / F ADM Date: 09/14/24 Loc: [facility] Room: Type: [facility] Attending Dr: Mary Ellen Bruce MD [...] Mary Ellen Bruce MD 09/14/24 1116 Normal [facility] OB GROWTHon 09-11-2024 [place] [address] Ultrasound Report Signed Patient: TAWNYA HERRING MR#: [id number] : 1995 Acct:[id number] Age/Sex: 29 / F ADM Date: 09/11/24 Loc: US Attending Dr: Mya Finch Ordering Physician: Mya Finch Date of Service: 09/11/24 Procedure(s): US OB growth Accession Number(s): [id number] cc: Mya Finch; Darwin Jones NP [place] [id number] Patient Name: TAWNYA HERRING MRN: [id number] date: 1995 Sex: F Assigned Patient Location: US Current Patient Location: US Accession/Order Number: [id number] Exam Date: 09/11/2024 10:00 Report Date: 09/11/2024 [...] Signed By: 09/11/24 1111 DD/ 1108 TD/TT: Machine B[employer] Cellophaner: [facility] Radiology, Radiologi MD diane - 09/11/2024 [place] [address] Ultrasound Report Signed Patient: TAWNYA HERRING MR#: [id number] : 1995 Acct:[id number] Age/Sex: 29 / F ADM Date: 09/11/24 Loc: US Attending Dr: Mya Finch Ordering Physician: Mya Finch Date of Service: 09/11/24 Procedure(s): US OB growth Accession Number(s): [id number] cc: Mya Finch; Darwin Jones NP The [address] [address] Patient Name: TAWNYA HERRING MRN: [facility]:[id number] date: 1995 Sex: F Assigned Patient Location: US Current Patient Location: US Accession/Order Number: [id number] Exam Date: 09/11/2024 10:00 Report Date: 09/11/2024 [...] Signed By: 09/11/24 1111 DD/ 1108 TD/TT: Machine Bander [employer] Cell[employer]er: [facility] Radiology Study observation (narrative) [facility] US OB GROWTHOrdered By: Halima ologist Radiology on 09-11-2024 [facility] Work Phone: C Urineon 09-07-2024 Bacteria [...] This test was performed at: [facility], [address] [place] [address], [phone]- , [place], [facility] Comment on above: Performed By: #### 2 [id number] #### [facility] [address] [place] [address] Urinalysis macro (dipstick) panel (U)on 09-07-2024 Bilirubin, UA Negative Negative - 4(70) +++ mg/dL [facility] Blood, UA Negative Negative - 50 Dain/mcL [facility] Clarity, UA Clear [facility] Color, UA Yellow [facility] Glucose, UA Negative Negative - 2000(110) ++++ mg/dL [facility] Interpretation and review of laboratory results Normal [facility] Ketones, UA Negative Negative - 160(16) ++++ mg/dL [facility] Leukocytes, UA Negative Negative - 500+++ Chaparrita/mcL [facility] Nitrite, UA Negative Negative - Positive [facility] pH, UA 8 5 - 9 [facility] Protein, UA Negative Negative - 2000(20) ++++ mg/dL [facility] Spec Grav, UA 1.015 1 - 1.03 [facility] Urobilinogen, UA 1.0 0.2 - 12 mg/dL [facility] ED Clinical Summaryon 2024 ED Clinical Summary ED Clinical Summary [address] [address] ED Clinical Summary Person Information Name: TAWNYA HERRING [facility] Age: 29 Years : 1995 Sex: Female Language: Bhutanese PCP: DARWIN JONES CNP Marital Status: Single Phone: [phone] Visit Id: Visit Reason: Headache; HEADACHE, FALL [...] 09/06/2024 16:26:55 09/06/2024 16:26:55 09/06/2024 16:26:55 ADDRESS: [address] [place] [phone] PHYS DOC NOTES: MEDICAL INFORMATION: Prescriptions Given: [...] day. PATIENT EDUCATION INFORMATION: Instructions: Concussion, Adult, Ylfi-hs-Vzge Follow up: With: Address: When: DARWIN JONES [facility] [place] [phone] [employer] Shopping Cart Software (1Converged Access In 3 days 09/09/2024 Comments: Call to schedule a follow-up appointment with your primary care provider. Use Zofran as needed for nausea/vomiting. Return to the ED with any new or worsening symptoms. DIAGNOSIS: JEFFERSON (headache) Normal [facility] ED Note-Physicianon 09-06-19 ED Note-Physician ED Note-Physician [...] headache. She denies the use of any wvvg-ffv-vglyqxm medications for this. Patient denies any neck [...] [] Head CT not ordered by emergency hospice care sales consultant [] Head CT ordered for reasons other than trauma [] Patient is 18 or older, presenting with minor blunt head trauma. Head CT (including cosigned orders) was ordered by an emergency hospice care sales consultant for trauma because (select one or more):[SATISFIES MIPS PERFORMANCE]Reasons: [] Patient is 65 or older [] Patient GCS < 15 [] Patient has focal neurologic deficit [] Patient has severe headache [] Patient is vomiting [] Severe/dangerous mechanism of injury was identified(select one or more): []MVA with: patient ejection, of another passenger, rollover, speed > 40mph, airbag deployment, full service vending driver or passenger on ATV or motorcycle [...] cosigned orders) was ordered by an emergency hospice care sales consultant for trauma, no indication specified.[DOES NOT SATISFY MIPS PERFORMANCE] Medical Decision Making Patient is a 29-year-old female with a history of anxiety who presents to the ED 30 weeks with complaints of a headache following a syncope episode from a seated position yesterday. Patient is hemodynamically st (more content not included)... Normal [facility] Comment on above: Result Comment: Elec tronically Signed By: Lashon Tee PA-C\.br\Date and Time Signed: 09/06/24 16:20 EST\.br\Electronically Co-Signed By: Lashon Tee PA-C\.br\Date and Time Co-Signed: 09/06/24 16:21 EST\.br\Electronically Co-Signed By: Flash Franco DO\.br\Date and Time Co-Signed: 09/06/24 19:47 EST ED Patient Summaryon 025 ED Patient Summary ED Patient Summary [place] [id number] Patient Discharge Instructions Person Information Name: TAWNYA HERRING Age: 29 Years Arrival Date: 09/06/2024 13:57:18 Discharge Diagnosis: JEFFERSON (headache) Primary Care Physician: DARWIN JONES CNP Provider Information Primary Provider: Flash Franco DO [employer] Serum Inspector:Lashon Tee PA-C The exam and treatment you received in the Emergency Department were for an urgent problem and are not intended as complete care. It is important that you follow up with a doctor, nurse practitioner, or physician???s placement assistant for ongoing care. If your symptoms [...] Instructions: With: Address: When: DARWIN JONES [address] [place] [phone] [employer] Software (Tyto In 3 days 09/09/2024 Comments: Call to schedule a follow-up appointment with your primary care provider. Use Zofran as needed for nausea/vomiting. Return to the ED with any new or worsening symptoms. In the event that this physician does not participate in your insurance network, please consult with your insurance company to find a nearby participating provider. Patient Education Materials: Concussion, Adult, Hueh-la-Owas A MESSAGE TO ALL PATIENTS REGARDING OPIOIDS PRESCRIPTION OPIOIDS: WHAT YOU NEED TO KNOW Prescription opioids can be used to help relieve dvyvzplf-tv-jqstda pain and are often prescribed following a [...] (www.fda.gov/Drugs/Resourc esForYou). (more content not included)... Normal [facility] BLOOD BANKOrdered By: Estefany Morillo on 09-05-2024 Fibronectin. Ql (Vag fld) Negative 1 (09/05/24 5:47 AM) Normal [facility] Man Sero Comment on above: Interpretive Data: [...] gap [Moles/Vol] 16 mmol/L Normal 6-16 [facility] Comment on above: Performed By: #### 2 [id number] #### [facility] [address] [place] [address] Calcium [Mass/Vol] 8.5 mg/dL Low 8.9-11.1 [facility] Comment on above: Performed By: #### 2 [id number] #### [facility] [address] [place] [address] Chloride [Moles/Vol] 108 mmol/L Normal 101-111 [facility] Comment on above: Performed By: #### 2 [id number] #### [facility] [address] [place] [address] CO2 [Moles/Vol] 17 mmol/L Low 21-31 [facility] Comment on above: Performed By: #### 2 [id number] #### [facility] [address] [place] [address] Creatinine [Mass/Vol] 0.4 mg/dL Low 0.5-1.3 [facility] Comment on above: Performed By: #### 2 [id number] #### [facility] [address] [place] [address] Glucose [Mass/Vol] 103 mg/dL Normal 55-199 [facility] Comment on above: Performed By: #### 2 [id number] #### [facility] [address] [place] [address] Potassium [Moles/Vol] 3.6 mmol/L Normal 3.5-5.3 [facility] Comment on above: Performed By: #### 2 [id number] #### [facility] [address] [place] [address] Sodium [Moles/Vol] 137 mmol/L Normal 135-145 [facility] Comment on above: Performed By: #### 2 [id number] #### [facility] [address] [place] [address] Urea nitrogen [Mass/Vol] 9 mg/dL Normal 5-21 [facility] Comment on above: Performed By: #### 2 [id number] #### [facility] [address] [place] [address] Urea nitrogen/Creatinine [Mass ratio] 22 No Units High 10-20 [facility] Comment on above: Performed By: #### 2 [id number] #### [facility] [address] [place] [address] CBC w/ Auto Diffon 5 Basophils/100 WBC (Bld) 0.4 % Normal 0.0-2.0 [facility] Comment on above: Performed By: #### 2 [id number] #### [facility] [address] [place] [address] Basophils/Leukocytes Auto (Bld) [Pure # fraction] 0.1 E9/L Normal 0.0-0.2 [facility] Comment on above: Performed By: #### 2 [id number] #### [facility] [address] [place] [address] Eosinophils (Bld) [#/Vol] 0.0 E9/L Normal 0.0-0.5 [facility] Comment on above: Performed By: #### 2 265344 #### [facility] [address] [place] [address] Eosinophils/100 WBC (Bld) 0.3 % Normal 0.0-8.0 [facility] Comment on above: Performed By: #### 2 156631 #### [facility] [address] [place] [address] Erythrocyte distribution width (RBC) [Ratio] 12.7 % Normal 10.9-14.2 [facility] Comment on above: Performed By: #### 2 [id number] #### [facility] [address] [place] [address] Hematocrit (Bld) [Volume fraction] 37.4 % Normal 34.0-46.0 [facility] Comment on above: Performed By: #### 2 566590 #### [facility] [address] [place] [address] Hemoglobin (Bld) [Mass/Vol] 13.2 g/dL Normal 12.0-16.0 [facility] Comment on above: Performed By: #### 2 339896 #### [facility] [address] [place] [address] Lymphocytes (Bld) [#/Vol] 1.1 E9/L Normal 1.0-4.0 [facility] Comment on above: Performed By: #### 2 886639 #### [facility] [address] [place] [address] Lymphocytes/100 WBC (Bld) 7.0 % Low 14.0-50.0 [facility] Comment on above: Performed By: #### 2 710134 #### [facility] [address] [place] [address] MCH (RBC) [Entitic mass] 33.0 pg Normal 27.0-34.0 [facility] Comment on above: Performed By: #### 2 425465 #### [facility] [address] [place] [address] MCHC (RBC) [Mass/Vol] 35.4 g/dL Normal 31.4-36.0 [facility] Comment on above: Performed By: #### 2 786861 #### [facility] [address] [place] [address] MCV (RBC) [Entitic vol] 93.3 fL Normal 80.0-100.0 [facility] Comment on above: Performed By: #### 2 249319 #### [facility] [address] [place] [address] Monocytes (Bld) [#/Vol] 0.7 E9/L Normal 0.2-1.0 [facility] Comment on above: Performed By: #### 2 505522 #### [facility] [address] [place] [address] Neutrophils (Bld) [#/Vol] 13.7 E9/L High 2.0-7.5 [facility] Comment on above: Performed By: #### 2 292233 #### [facility] [address] [place] [address] Neutrophils/100 WBC (Bld) 87.6 % High 36.0-75.0 [facility] Comment on above: Performed By: #### 2 547862 #### [facility] [address] [place] [address] Platelet 324.0 E9/L Normal 150.0-500. 0 [facility] Comment on above: Performed By: #### 2 820236 #### [facility] [address] [place] [address] Platelet mean volume (Bld) [Entitic vol] 8.3 fL Normal 6.4-10.8 [facility] Comment on above: Performed By: #### 2 500607 #### [facility] [address] [place] [address] RBC (Bld) [#/Vol] 4.0 E12/L Low 4.3-5.9 [facility] Comment on above: Performed By: #### 2 334384 #### [facility] [address] [place] [address] WBC corrected for nucl RBC Auto (Bld) [#/Vol] 15.6 E9/L High 4.0-11.0 [facility] Comment on above: Performed By: #### 2 096776 #### [facility] [address] [place] [address] CHEMISTRYOrdered By: SYSTEM SYSTEM on 09-05-2024 Albumin [...] Sensitivity Troponin I Instructions For Use, Nathen Risk I/O, March 2018) Urea nitrogen [Mass/Vol] 9 mg/dL Normal 5 - 21 mg/dL Remisol Chem Urea nitrogen/Creatinine [Mass ratio] 22 mg/mg High 10 - 20 Remisol Chem ED Clinical Summaryon 2024 ED Clinical Summary ED Clinical Summary [place] [address] ED Clinical Summary Person Information Name: TAWNYA HERRING [facility] Age: 29 Years : 1995 Sex: Female Language: Bhutanese PCP: DARWIN JONES CNP Marital Status: Single Phone: [phone] Visit Id: Visit Reason: Abdominal pain - ; Vomiting - ; Syncope/Near syncope; PASSED OUT HIT HEAD,NAUSEA DIARRHEA VOMITING 30 WKS PREG Speciality: Acuity: 2 Enc Type: Emergency Med Service: Emergency Arrival: 09/05/2024 03:02:46 Discharge: LOS: 000 01:33 Checkin: 09/05/2024 03:02:46 Checkout: 09/05/2024 04:35:45 Dispo Type: Admitted as IP to this [facility] EVENTS: Event Name Event [...] 09/05/2024 04:35:45 09/05/2024 04:35:45 09/05/2024 04:35:45 ADDRESS: [address] [place] [phone] PHYS DOC NOTES: MEDICAL INFORMATION: Prescriptions Given: Medications to Continue with No Changes Other Medications citalopram (CeleXA 20 mg Tab) 1 Tablets By Mouth every day. PATIENT EDUCATION INFORMATION: Instructions: Syncope, Adult, Wufj-cb-Ucdr; Nausea and Vomiting, Adult, Fdjz-bl-Pupr; Diarrhea, Adult, Eote-cg-Cepg; Dehydration, Adult, Qjxu-pa-Rasx Follow up: With: Address: When: DARWIN JONES[address] [phone] Business (1) In 3 days 09/08/2024 Comments: Please follow-up with Dr. Way for further evaluation management. Please return to the ED for any new or worsening symptoms. DIAGNOSIS: Dehydration; Diarrhea, unspecified; Nausea, vomiting, and diarrhea; Syncope Normal [facility] ED Note-Nursingon 09-05-2024 ED Note-Nursing ED Note-Nursing OB at bedside Normal [facility] ED Note-Physicianon 09-05-19 ED Note-Physician ED Note-Physician [...] and Complexity of Problems Differential Diagnosis: [] [facility] Data External documents reviewed: [] My [...] Dayna 50 mL [F] 50 mL + ncqnkv15Dldwhqelb [F] 25 mg, IV Piggyback Disposition Plan [...] Use, 03/12/2020 (more content not included)... Normal [facility] Comment on above: Result Comment: Elec tronically Signed By: Gabriel Curtis DO\.br\Date and Time Signed: 09/05/24 04:22 EST ED Patient Summaryon 025 ED Patient Summary ED Patient Summary [place] [id number] Patient Discharge Instructions Person Information Name: TAWNYA HERRING Age: 29 Years Arrival Date: 09/05/2024 03:02:46 Discharge Diagnosis: Dehydration; Diarrhea, unspecified; Nausea, vomiting, and diarrhea; Syncope Primary Care Physician: DARWIN JONES CNP Provider Information Primary Provider: Gabriel Curtis DO [employer] Serum Inspector:None The exam and treatment you received in the Emergency Department were for an urgent problem and are not intended as complete care. It is important that you follow up with a doctor, nurse practitioner, or physician???s placement assistant for ongoing care. If your symptoms [...] Follow-up Instructions: With: Address: When: DARWIN JONES [address] [place] [phone] Business (1) In 3 days 09/08/2024 Comments: Please follow-up with Dr. Way for further evaluation management. Please return to the ED for any new or worsening symptoms. In the event that this physician does not participate in your insurance network, please consult with your insurance company to find a nearby participating provider. Patient Education Materials: Syncope, Adult, Pgtb-ym-Rech; Nausea and Vomiting, Adult, Zlde-zy-Twlv; Diarrhea, Adult, Lvmi-ie-Yoyc; Dehydration, Adult, Isqh-pl-Kzqc A MESSAGE TO ALL PATIENTS REGARDING OPIOIDS PRESCRIPTION OPIOIDS: WHAT YOU NEED TO KNOW Prescription opioids can be used to help relieve cafgeiyb-io-xcvyic pain and are often prescribed following a [...] down t (more content not included)... Normal [facility] Extra Blueon 09-05-2024 Tube Collected Plasma Yes Invalid Interpretation Code [facility] Comment on above: Performed By: #### 1 [id number] #### [facility] [address] [place] [address] FFNon 09-05-2024 Fibronectin. Ql (Vag fld) Negative Normal [facility] Comment on above: Result Comment: In S [...] the antibody-antigen reaction. Performed By: #### 1 [id number] #### [facility] [address] [place] [address] HEMATOLOGYOrdered By: SYSTEM SYSTEM on 09-05-2024 Basophils/100 [...] 09-05-2024 Albumin [Mass/Vol] 3.8 g/dL Normal 3.3-5.0 [facility] Comment on above: Performed By: #### 2 [id number] #### [facility] [address] [place] [address] Albumin/Globulin (S) [Mass conc ratio] 1.5 Normal 1.1-2.2 [facility] Comment on above: Performed By: #### 2 [id number] #### [facility] [address] [place] [address] ALP [Catalytic activity/Vol] 80 Int._Unit/L Normal 21-98 [facility] Comment on above: Performed By: #### 2 [id number] #### [facility] [address] [place] [address] ALT No additional P-5'-P [Catalytic activity/Vol] 20 Int._Unit/L Normal 6-46 [facility] Comment on above: Performed By: #### 2 [id number] #### [facility] [address] [place] [address] AST [Catalytic activity/Vol] 15 Int._Unit/L Normal 5-43 [facility] Comment on above: Performed By: #### 2 [id number] #### [facility] [address] [place] [address] Bilirubin [Mass/Vol] 0.6 mg/dL Normal 0.0-1.1 [facility] Comment on above: Performed By: #### 2 [id number] #### [facility] [address] [place] [address] Bilirubin.direct [Mass/Vol] 0.1 mg/dL Normal 0.0-0.4 [facility] Comment on above: Performed By: #### 2 [id number] #### [facility] [address] [place] [address] Bilirubin.indirect [Mass or moles/Vol] 0.5 mg/dL Normal 0.1-0.9 [facility] Comment on above: Performed By: #### 2 [id number] #### [facility] [address] [place] [address] Globulin (S) [Mass/Vol] 2.6 g/dL Normal 1.4-4.0 [facility] Comment on above: Performed By: #### 2 [id number] #### [facility] [address] [place] [address] Protein [Mass/Vol] 6.4 g/dL Normal 6.0-7.8 [facility] Comment on above: Performed By: #### 2 [id number] #### [facility] [address] [place] [address] Influenza A&B Agon Influenzae A Ag Negative Normal Negative [facility] Comment on above: Performed By: #### 1 [id number] #### [facility] [address] [place] [address] Influenzae B Ag Negative Normal Negative [facility] Comment on above: Result Comment: Test sensitivity and specificity vary for age group, specimen type, antigen types, and prevalence of disease. Test results must be evaluated in conjunction with other clinical data available to the physician. Individuals who received nasally administered Influenza A vaccine may have positive test results up to 3 days after vaccination. Performed By: #### 1 [id number] #### [facility] [address] [place] [address] Inpatient Clinical Summaryon 09-05-2024 Inpatient Clinical Summary Inpatient Clinical Summary [address] [address] Clinical Summary Person Information Name: TAWNYA HERRING [facility] Age: 29 Years : 1995 Sex: Female PCP: DARWIN JONES CNP Marital Status: Single Phone: [phone] Race: White Ethnicity: Non- or Language: Bhutanese Visit Id: Visit Reason: Abdominal pain - ; Vomiting - ; Syncope/Near syncope; PASSED OUT HIT HEAD,NAUSEA DIARRHEA VOMITING 30 WKS PREG Speciality: Acuity: Obs Enc Type: Observation Med Service: Obstetrics Arrival: 09/05/2024 03:02:46 Discharge: 09/05/2024 15:50:00 Dispo Type: Home (Routine DC) Address: [address] [place] [id number] Provider Notes: Diagnosis: Dehydration; Diarrhea, unspecified; Nausea, [...] range between ( 80.0 and 100.0 ) Gibson Auto: 4.7 % -- Normal range between ( 4.0 and 14.0 ) MPV: 8.3 fL -- Normal range between ( 6.4 and 10.8 ) Neutro Auto: 87.6 % -- Normal range between ( 36.0 and 75.0 ) Platelet: 324.0 E9/L -- Normal range between ( 150.0 and 500.0 ) WBC: 15.6 E9/L -- Normal range between ( 4.0 and 11.0 ) Gibson Absolute: 0.7 E9/L -- Normal range between [...] 38.19 kg/m2 (more content not included)... Normal [facility] Inpatient Patient Summaryon 09-05-2024 Inpatient Patient Summary Inpatient Patient Summary [place] [address] Patient Discharge Instructions PERSON INFORMATION Name: TAWNYA HERRING Date of : 1995 Current Date: 09/05/2024 16:15:55 PHYSICIANS Admitting Physician: Rogelio Nath MD Primary Care Physician: DARWIN JONES CNP PCP Phone Number: [phone] Comment: Discharge Diagnosis: Dehydration; Diarrhea, unspecified; Nausea, [...] Follow up: With: Address: When: [address] [facility], [address] [place] [address] Business (1) In 2 days 09/07/2024 Comments: Call 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 counselor supervisor prescriptions at [facility] With: Address: When: [facility] [address] [place] [phone] Business (1) In 3 days 09/08/2024 Comments: [...] until you feel better. Medicines ??? Take dots-alj-obwtpok and prescription medicines only as told by [...] ? Flexing (more content not included)... Normal [facility] Lipase Levelon 09-05-2024 Lipase [Catalytic activity/Vol] 18 U/L Normal 13-58 [facility] Comment on above: Performed By: #### 2 [id number] #### [facility] [address] [place] [address] MICRO OTHER TESTSOrdered By: Barrington Maxwell on 09-05-2024 Influenzae A Ag Negative (09/05/24 3:34 AM) Normal Negative [facility] Man Sero Influenzae B Ag Negative 3 (09/05/24 3:34 AM) Normal Negative [facility] Man Sero Comment on above: Interpretive Data: [...] Troponin HS 2.70 pg/mL Low 10.10-27.1 0 [facility] Comment on above: Result Comment: The 95% CI (Confidence Interval) PPV (Positive Predictive Value) for myocardial infarction in females is 38 pg/mL, in males 51 pg/mL. The results should be used in conjunction with clinical conditions of myocardial infarction. (Access High Sensitivity Troponin I Instructions For Use, Nathen Claremont, March 2018) Performed By: #### 1 [id number] #### [facility] [address] [place] [address] UA with Cult Rflxon 09-05-19 25 Bacteria Auto Ql (U) Trace Normal Trace [facility] Comment on above: Performed By: #### 4 [id number] #### [facility] [address] [place] [address] Bilirubin Ql (U) 1+ mg/dL Abnormal Negative [facility] Comment on above: Performed By: #### 4 [id number] #### [facility] [address] [place] [address] Clarity (U) Turbid Abnormal Clear [facility] Comment on above: Performed By: #### 4 [id number] #### [facility] [address] [place] [address] Color (U) Dark-Yellow Abnormal Yellow [facility] Comment on above: Result Comment: Micr oscopic readings are only performed on those samples that meet specific criteria set forth by [facility]. Performed By: #### 4 [id number] #### [facility] [address] [place] [address] Epithelial cells.squamous Auto (Urine sed) [#/Area] 5-8 Invalid Interpretation Code [facility] Comment on above: Performed By: #### 4 [id number] #### [facility] [address] [place] [address] Glucose Ql (U) Trace Abnormal Negative [facility] Comment on above: Performed By: #### 4 [id number] #### [facility] [address] [place] [address] Hemoglobin Auto test strip (U) [Mass/Vol] Negative Normal Negative [facility] Comment on above: Performed By: #### 4 [id number] #### [facility] [address] [place] [address] Ketones Auto test strip Ql (U) 1+ mg/dL Abnormal Negative [facility] Comment on above: Performed By: #### 4 [id number] #### [facility] [address] [place] [address] Leukocyte esterase Auto test strip Ql (U) 25 Chaparrita/uL Normal Negative [facility] Comment on above: Performed By: #### 4 [id number] #### [facility] [address] [place] [address] Mucus Auto Ql (U) 4+ [id number] Abnormal Negative [facility] Comment on above: Performed By: #### 4 [id number] #### [facility] [address] [place] [address] Nitrite Auto test strip Ql (U) 1+ mg/dL Abnormal Negative [facility] Comment on above: Performed By: #### 4 [id number] #### [facility] [address] [place] [address] pH (U) 5.5 [pH] Invalid Interpretation Code 5.0-9.0 [facility] Comment on above: Performed By: #### 4 [id number] #### [facility] [address] [place] [address] Protein Ql (U) 1+ mg/dL Abnormal Negative [facility] Comment on above: Performed By: #### 4 [id number] #### [facility] [address] [place] [address] RBC Ql (U) 0-3 Normal 0-3 [facility] Comment on above: Performed By: #### 4 [id number] #### [facility] [address] [place] [address] Specific gravity (U) [Rel density] 1.029 Invalid Interpretation Code 1.005-1.03 0 [facility] Comment on above: Performed By: #### 4 [id number] #### [facility] [address] [place] [address] Urobilinogen (U) [Mass/Vol] 2 mg/dL Abnormal Negative [facility] Comment on above: Performed By: #### 4 [id number] #### [facility] [address] [place] [address] WBC Auto (Urine sed) [#/Area] 0-5 Normal 0-5 [facility] Comment on above: Performed By: #### 4 [id number] #### [facility] [address] [place] [address] Type of Urine collection method Clean Catch Normal [facility] Comment on above: Performed By: #### 4 [id number] #### [facility] [address] [place] [address] URINALYSISOrdered By: SYSTEM SYSTEM on 09-05-2024 Bacteria [...] that meet specific criteria set forth by [facility]. Epithelial cells.squamous Auto (Urine sed) [#/Area] [...] 2 mg/dL Invalid Interpretation Code Negativemg /dL [facility] UA Auto SS WBC Auto (Urine sed) [#/Area] 0-5 graded/HPF Normal 0-5graded/ HPF [facility] UA Auto SS URINALYSISOrdered By: Rica Islas on 09-05-2024 UA Spec Desc Clean Catch (09/05/24 5:25 AM) Normal [facility] UA Auto SS eGFRon 09-05-2024 eGFR 138 mL/min/1.73 m2 Normal >=59 [facility] Comment on above: Performed By: #### 1 [id number] #### [facility] [address] [place] [address] ALL CBC WITH AUTO DIFFon BASOPHILS ABSOLUTE AUTO 0 [facility] Basophils/100 WBC (Bld) 0.2 % 0.2 - 2.0 % [facility] Eosinophils/100 WBC (Bld) 0.8 % Low 0.9 - 7.0 % [facility] Erythrocyte distribution width (RBC) [Ratio] 12.1 % 11.0 - 15.0 % [facility] Hematocrit (Bld) [Volume fraction] 33.9 % Low 36.0 - 48.0 % [facility] Hemoglobin (Bld) [Mass/Vol] 11.6 g/dL Low 12.0 - 16.0 g/dL [facility] IMMATURE GRANULOCYTES ABS AUTO 0.03 [facility] Immature granulocytes/100 WBC (Bld) 0.3 % 0.0 - 0.5 % [facility] Interpretation and review of laboratory results Abnormal [facility] LYMPHOCYTES ABSOLUTE AUTO 1.8 [facility] Lymphocytes/100 WBC (Bld) 19.8 % Low 20.5 - 60.0 % [facility] MCH (RBC) [Entitic mass] 32.9 pg 26.7 - 34.0 pg [facility] MCHC (RBC) [Mass/Vol] 34.2 g/dL 29.9 - 35.2 g/dL [facility] MCV (RBC) [Entitic vol] 96 fL 81.0 - 99.0 fL [facility] MONOCYTES ABSOLUTE AUTO 0.5 [facility] Monocytes/100 WBC (Bld) 5.4 % 1.7 - 12.0 % [facility] NEUTROPHILS ABSOLUTE AUTO 6.6 High [facility] Neutrophils/100 WBC (Bld) 73.5 % 43.0 - 75.0 % [facility] Platelet mean volume (Bld) [Entitic vol] 10.2 fL 9.5 - 13.5 fL [facility] EO # 0.1 [facility] PLT 287 [facility] RBC 3.53 Low [facility] WBC 9 [facility] Basophils Auto (Bld) [#/Vol] on 08-25-2024 Basophils (Bld) [#/Vol] Automated basophil count 0.0-0.1 [facility] Basophils/100 WBC Auto (Bld) on 08-25-2024 Basophils/100 WBC (Bld) Automated basophil % 0.2-2.0 [facility] Eosinophils/100 WBC Auto (Bl d)on 08-25-2024 Eosinophils/100 WBC (Bld) Automated eosinophil % Low 0.9-7.0 [facility] Erythrocyte distribution wid th Auto (RBC) [Ratio]on 08-25-2024 Erythrocyte distribution width (RBC) [Ratio] Erythrocyte distribution width [Ratio] by Automated count 11.0-15.0 [facility] FPG ECG *CARDIOLOGY ONLY*on 08-25-2024 FPG ECG *CARDIOLOGY ONLY* [facility] [place] [address] Electrocardiograph Report Signed Patient: Tawnya Herring MR#: [id number] 29 : 1995 Acct:[id number] Age/Sex: 29 / F ADM Date: 08/25/24 Loc: [facility] Room: Type: [facility] Attending Dr: Mary Ellen Bruce MD [...] Normal ECG Confirmed by Mary Ellen Bruce ([id number]) on 08/25/2024 1:42:57 PM Referred By: Electronically Signed By: Mary Ellen Bruce Transcribed By: MUS Signed By Mary Ellen Bruce MD 5 [id number] Normal [facility] Hematocrit Auto (Bld) [Volum e fraction]on 08-25-2024 Hematocrit (Bld) [Volume fraction] Hematocrit [Volume Fraction] of Blood by Automated count Low 36.0-48.0 [facility] Hemoglobin [Mass/volume] in Bloodon 08-25-2024 Hemoglobin (Bld) [Mass/Vol] Hemoglobin [Mass/volume] in Blood Low 12.0-16.0 [facility] Laboratory - Chemistry and C hemistry - challengeon 08-25-2024 Glucose [Mass/Vol] 131 mg/dL High <130 [facility] Laboratory - Hematology and Cell countson 08-25-2024 Immature granulocytes/100 WBC (Bld) 0.3 % 0.0-0.5 [facility] Leukocytes [#/volume] correc hamilton for nucleated erythrocytes in Blood by Automated counon 08-25-2024 WBC corrected for nucl RBC Auto (Bld) [#/Vol] Leukocytes [#/volume] corrected for nucleated erythrocytes in Blood by Automated coun 4.0-11.0 [facility] Lymphocytes Auto (Bld) [#/Vo l]on 08-25-2024 Lymphocytes (Bld) [#/Vol] Lymphocytes [#/volume] in Blood by Automated count 1.2-3.8 [facility] Lymphocytes/100 WBC Auto (Bl d)on 08-25-2024 Lymphocytes/100 WBC (Bld) Lymphocytes/100 leukocytes in Blood by Automated count Low 20.5-60.0 [facility] MCH Auto (RBC) [Entitic mass ]on 08-25-2024 MCH (RBC) [Entitic mass] MCH [Entitic mass] by Automated count 26.7-34.0 [facility] MCHC Auto (RBC) [Mass/Vol]on 08-25-2024 MCHC (RBC) [Mass/Vol] MCHC [Mass/volume] by Automated count 29.9-35.2 [facility] MCV Auto (RBC) [Entitic vol] on 08-25-2024 MCV (RBC) [Entitic vol] MCV [Entitic volume] by Automated count 81.0-99.0 [facility] Monocytes Auto (Bld) [#/Vol] on 08-25-2024 Monocytes (Bld) [#/Vol] Automated blood monocyte count 0.3-0.8 [facility] Monocytes/100 WBC Auto (Bld) on 08-25-2024 Monocytes/100 WBC (Bld) Automated monocyte % 1.7-12.0 [facility] Neutrophils Auto (Bld) [#/Vo l]on 08-25-2024 Neutrophils (Bld) [#/Vol] Neutrophils [#/volume] in Blood by Automated count High 1.4-6.5 [facility] Neutrophils/100 WBC Auto (Bl d)on 08-25-2024 Neutrophils/100 WBC (Bld) Automated neutrophil % 43.0-75.0 [facility] No Panel Informationon 08-25 Eosinophils # (Auto) 0.1 10 3/uL 0.0-0.7 [facility] Immature Granulocyte # (Auto) 0.03 10 3/uL 0.00-0.03 [facility] Platelet mean volume Auto (B ld) [Entitic vol]on 08-25-2024 Platelet mean volume (Bld) [Entitic vol] Platelet mean volume [Entitic volume] in Blood by Automated count 9.5-13.5 [facility] Platelets Auto (Bld) [#/Vol] on 08-25-2024 Platelets (Bld) [#/Vol] Platelets [#/volume] in Blood by Automated count 150-450 [facility] RBC Auto (Bld) [#/Vol]on RBC (Bld) [#/Vol] Erythrocytes [#/volu me] in Blood by Automated count Low 4.20-5.40 [facility] Urinalysis macro (dipstick) panel (U)on 08-23-2024 Bilirubin, UA Negative Negative - 4(70) +++ mg/dL [facility] Blood, UA Negative Negative - 50 Dain/mcL [facility] Clarity, UA Clear [facility] Color, UA Yellow [facility] Glucose, UA Negative Negative - 2000(110) ++++ mg/dL [facility] Interpretation and review of laboratory results Abnormal [facility] Ketones, UA Negative Negative - 160(16) ++++ mg/dL [facility] Leukocytes, UA Positive Negative - 500+++ Chaparrita/mcL [facility] Comment on above: small Nitrite, UA Negative Negative - Positive [facility] pH, UA 7 5 - 9 [facility] Protein, UA Negative Negative - 1999(20) ++++ mg/dL [facility] Spec Grav, UA 1.02 1 - 1.03 [facility] Urobilinogen, UA 0.2 0.2 - 12 mg/dL [facility] Thyroid Stimulating Hormoneo n 07-31-2024 TSH Qn 2.07 m[IU]/L Normal 0.45-5.33 [facility] Comment on above: Result Comment: PERF ORMED BY: [facility] [address] [place] [address] PATHOLOGIST PAINTER AND DECORATOR MIS SCHMIDT M.D. Performed By: #### T SH3 ####[facility] [id number] [place] [address] [facility] Thyrotropin [Units/volume] i n Serum or PlasmaOrdered By: Brain Way on 07-31-2024 TSH Qn Thyrotropin [Units/v olume] in Serum or Plasma 0.45-5.33 [facility] Urinalysis macro (dipstick) panel (U)on 07-11-2024 Bilirubin, UA Negative Negative - 4(70) +++ mg/dL [facility] Blood, UA Negative Negative - 50 Dain/mcL [facility] Clarity, UA Clear [facility] Color, UA Yellow [facility] Glucose, UA Negative Negative - 1999(110) ++++ mg/dL [facility] Interpretation and review of laboratory results Abnormal [facility] Ketones, UA Negative Negative - 160(16) ++++ mg/dL [facility] Leukocytes, UA Trace Negative - 500+++ Chaparrita/mcL [facility] Nitrite, UA Negative Negative - Positive [facility] pH, UA 6 5 - 9 [facility] Protein, UA Negative Negative - 1999(20) ++++ mg/dL [facility] Spec Grav, UA 1.01 1 - 1.03 [facility] Urobilinogen, UA 0.2 0.2 - 12 mg/dL [facility] Alpha-fetoprotein (AFP) luis urement (uvvxleei-[id number])Ordered By: Brain Way on 06-28-2024 AFP [MoM] Alpha-fetoprotein (A FP) measurement (gtbtaszo-yy-pvnpcb) . [facility] Determination of gestational ageOrdered By: Brain Way on 06-28-2024 Gestational age Assess gestational age . [facility] Estimation of maternal age-s pecific risk of Down syndrome birthOrdered By: Brain Way on 06-28-2024 Age [Time] Estimation of matern al age-specific risk of Down syndrome . [facility] Human chorionic gonadotropin (hCG) multiple of median measurementOrdered By: Brain Seamus on 06-28-2024 HCG [MoM] Human chorionic gonadotropin (hCG) multiple of median measurement . [facility] Insulin dependent diabetes m ellitus detectionOrdered By: Brain Way on 06-28-2024 Insulin dependent diabetes mellitus Ql Insulin dependent diabetes mellitus detection . [facility] Interpretation of serum or p lasma second trimester quad maternal screen (narrative reOrdered By: Brain Way on 06-28-2024 Second trimester quad maternal screen Mathew [Interp] Interpretation of serum or plasma second trimester quad maternal screen (narrative re . [facility] Comment on above: Interpretation:An in terpretation CANNOT be provided for this patientbecause necessary patient information was not provided (oneor more of: gestational age, weight, or patient age).Please call us with new clinical information.Recalculations are not recommended when gestational datingby LMP and ultrasound are within 10 days. No Panel InformationOrdered By: Brain Way on 06-28-2024 AFP Triple Screen Comment Comment . [facility] Comment on above: Stephanie Pinto , Ph.D., DABCCDirectorReferences: Available Upon Request.Multiples Of Median Cutoffs Abbreviation Definitions For AFP Elevations IDD- Insulin Dep DiabetesSingleton 2.5 Black 2.8 OSBR- Open Spina BifidaIDD 2.0 Twins 4.5 RiskDSR Cutoff 1:270 DSR- Down Syndrome RiskT18 Cutoff 1:100 T18- Trisomy 18For further inquiries contact [employer] Servicesat [phone].This test was developed and its performance characteristicsdetermined by [employer]. It has not been cleared or approvedby the Food and Drug Administration.Performed at: [facility] [employer] [id number] [facility], [place], [place] [id number] Director: Aubrey Moreno [facility], Phone: [phone] Alpha Fetoprotein Results Received Report . [facility] Down Syndrome Age Equivalent See interpretation. . [facility] Gestational Age Calculation Method Ultrasound . [facility] Comment on above: 18:5 on 06/12/2024 Maternal Quad Test Risk See interpretation. . [facility] Maternal Race . [facility] Multiple No . [facility] Serum or plasma rhiuc-0-caio protein measurement (mass/volume)Ordered By: Brain Way on 06-28-2024 AFP [Mass/Vol] Serum or plasma irdee-2-hqamvlupqsf measurement (mass/volume) . [facility] Serum or plasma inhibin A me asurement (adjusted levpmjjb-tm-wqnjnr)Ordered By: Brain Way on 06-28-2024 Inhibin A adjusted [MoM] Serum or plasma inhibin A measurement (adjusted tcsmcdjn-zc-ijvtnz) . [facility] Serum or plasma inhibin A me asurement (mass/volume)Ordered By: Brain Way on 06-28-2024 Inhibin A [Mass/Vol] Inhibin A [Mass/vol ume] in Serum or Plasma . [facility] Serum or plasma total combin ed intact choriogonadotropin and beta subunit measurementOrdered By: Brain Way on 06-28-2024 HCG.intact+Beta subunit Qn Serum or plasma total combined intact choriogonadotropin and beta subunit measurement . [facility] Serum or plasma unconjugated estriol (E3) measurement (adjusted obozcdhe-zq-atpwpl)Ordered By: Brain Way on 06-28-2024 E3.unconjugated adjusted [MoM] Serum or plasma unconjugated estriol (E3) measurement (adjusted bsrulpsf-er-uzvdji) . [facility] Serum or plasma unconjugated estriol (E3) measurement (mass/volume)Ordered By: Brain Way on 06-28-2024 E3.unconjugated [Mass/Vol] Serum or plasma unconjugated estriol (E3) measurement (mass/volume) . [facility] Thyroid Stimulating Hormoneo n 06-28-2024 TSH Qn 3.44 m[IU]/L Normal 0.45-5.33 [facility] Comment on above: Result Comment: PERF ORMED BY: [place] [address] PATHOLOGIST PAINTER AND DECORATOR JORDI SMITH M.D. Performed By: #### T [facility] #### [address] Thyrotropin [Units/volume] i n Serum or PlasmaOrdered By: Brain Way on 06-28-2024 TSH Qn Thyrotropin [Units/v olume] in Serum or Plasma 0.45-5.33 [facility] Trisomy 21 risk determinatio n in fetusOrdered By: Brain Way on 06-28-2024 Trisomy 21 risk Qn (fetus) Trisomy 21 risk determination in fetus . [facility] US OB >= 14 weeks Fetuson US OB >= 14 weeks Fetus [facility] [address] [place] [address] [place] [address] Ultrasound Report Signed Patient: Tawnya Herring MR#: [id number] 29 : 1995 Acct:[id number] Age/Sex: 28 / F ADM Date: 06/22/24 Loc: Room: Type: [facility] Attending Dr: Brain Way DO Ordering [...] No abnormalities seen on today's study. Normal LINE. Normal cervical length. Impression dictated by: Zay Norton Jr., D.O.06/22/2024 4:00 PM Dictation Location: [employer] Tech: Rae Baldev Transcribed By: AGUILAR 06/22/24 1600 Dictated By: Zay Norton Jr, DO 06/22/24 1552 Signed By: 06/22/24 1600 Normal [facility] Urinalysis macro (dipstick) panel (U)on 06-12-2024 Bilirubin, UA Negative Negative - 4(70) +++ mg/dL [facility] Blood, UA Negative Negative - 50 Dain/mcL [facility] Clarity, UA Clear [facility] Color, UA Yellow [facility] Glucose, UA Negative Negative - 1999(110) ++++ mg/dL [facility] Interpretation and review of laboratory results Abnormal [facility] Ketones, UA Negative Negative - 160(16) ++++ mg/dL [facility] Leukocytes, UA Positive Negative - 500+++ Chaparrita/mcL [facility] Comment on above: small Nitrite, UA Negative Negative - Positive [facility] pH, UA 6 5 - 9 [facility] Protein, UA Negative Negative - 2000(20) ++++ mg/dL [facility] Spec Grav, UA 1.025 1 - 1.03 [facility] Urobilinogen, UA 1.0 0.2 - 12 mg/dL [facility] Thyrotropin [Units/volume] i n Serum or PlasmaOrdered By: Brain Way on 05-24-2024 TSH Qn 2.42 m[IU]/L Normal 0.45-5.33 [facility] Comment on above: Result Comment: PERF ORMED BY: [place] [address] PATHOLOGIST PAINTER AND DECORATOR JORDI SMITH M.D. Performed By: #### T SH3 #### [facility] [address] TSH Qn Thyrotropin [Units/v olume] in Serum or Plasma 0.45-5.33 [facility] Urinalysis macro (dipstick) panel (U)on 05-10-2024 Bilirubin, UA Negative Negative - 4(70) +++ mg/dL [facility] Blood, UA Negative Negative - 50 Dain/mcL [facility] Clarity, UA Clear [facility] Color, UA Yellow [facility] Glucose, UA Negative Negative - 1999(110) ++++ mg/dL [facility] Interpretation and review of laboratory results Normal [facility] Ketones, UA Negative Negative - 160(16) ++++ mg/dL [facility] Leukocytes, UA Negative Negative - 500+++ Chaparrita/mcL [facility] Nitrite, UA Negative Negative - Positive [facility] pH, UA 6.5 5 - 9 [facility] Protein, UA Negative Negative - 1999(20) ++++ mg/dL [facility] Spec Grav, UA 1.020 1 - 1.03 [facility] Urobilinogen, UA 1.0 0.2 - 12 mg/dL [facility] IGP,APTIMA HPV,AGE GDLNon AGE GDLN ACOG TESTING Note . [facility] Comment on above: TESTS RESULT FLAG UN ITS REF RANGE LAB Clinician Provided Cytology Information Source.............Cervix No. of containers..01 ThinPrep Vial Age Shweta BARLOW Mariel... FLAG LEGEND: L-Low Normal,H-High Normal,LL-Alert Low,HH-Alert High <-Panic Low,>-Panic High,A-Abnormal,AA-Critical Abnormal Performed at: 01 =G [facility] [address] [place] [address] Christelle Galan MD, IGP, RFX APTIMA HPV ASCU Note . [facility] Comment on above: TESTS RESULT FLAG UN ITS REF RANGE LAB DIAGNOSIS: 02 NEGATIVE FOR INTRAEPITHELIAL LESION OR MALIGNANCY. Specimen adequacy: 02 Satisfactory for evaluation. Endocervical and/or squamous metaplastic cells (endocervical component) are present. Performed by: 02 Vanessa Ornelas, Care Management Associate . 02 Note: Note 02 The Pap [...] <-Panic Low,>-Panic High,A-Abnormal,AA-Critical Abnormal Performed at: [address] [phone] Christelle Galan MD, Performed at: =[address] [id number] Manager Gyn: Christelle Galan MD, Phone: [phone] Performed at: [address] [id number] Manager Gyn: Christelle Galan MD, Phone: [phone] [facility] URETHRITIS/DISCHARGE PLUS VA GINITIS (HTRX)on 04-22-2024 ATOPOBIUM VAGINAE 0.000 [facility] ATOPOBIUM VAGINAE Not detected [facility] Healthcare BVAB 2,3 (BACTERIAL VAGINOSIS ASSOCIATED BACTERIA 2, 3); MOBILUNCUS SPP 24.821 Abnormal [facility] BVAB 2,3 (BACTERIAL VAGINOSIS ASSOCIATED BACTERIA [...] Not detected [facility] MYCOPLASMA GENITALIUM 0.000 [facility] MYCOPLASMA GENITALIUM Not detected N [facility] NEISSERIA GONORRHOEAE 0.000 [facility] NEISSERIA GONORRHOEAE Not detected N [facility] TRICHOMONAS VAGINALIS 0.000 [facility] TRICHOMONAS VAGINALIS Not detected N [facility] Urinalysis macro (dipstick) panel (U)on 04-20-2024 Bilirubin, UA Negative Negative - 4(70) +++ mg/dL [facility] Blood, UA Positive Negative - 50 Dain/mcL [facility] Comment on above: trace-intact Clarity, UA Clear [facility] Color, UA Yellow [facility] Glucose, UA Negative Negative - 1999(110) ++++ mg/dL [facility] Interpretation and review of laboratory results Abnormal [facility] Ketones, UA Negative Negative - 160(16) ++++ mg/dL [facility] Leukocytes, UA Trace Negative - 500+++ Chaparrita/mcL [facility] Nitrite, UA Negative Negative - Positive [facility] pH, UA 6.0 5 - 9 [facility] Protein, UA Negative Negative - 1999(20) ++++ mg/dL [facility] Spec Grav, UA 1.030 1 - 1.03 [facility] Urobilinogen, UA 0.2 0.2 - 12 mg/dL [facility] CBC without diffon Hematocrit (Bld) [Volume fraction] 37.3 % [facility] Hemoglobin (Bld) [Mass/Vol] 13.3 g/dL [facility] Rbc Mcv (Fl) By Automated Count 92.1 [facility] No Panel Informationon 04-13 [facility] Rubella IGG immune statuson 04-13-2024 Rubella immune IgG 1.33 [facility] Syphilis Total(Unknown Syphi lis Status)on 04-13-2024 Syphilis Non-Reactive [facility] TBH BOX TEST SENT OUTon 03-17 BOX TEST SENT OUT 04/13/24 [facility] Drug Screen, Urineon 024 Amphetamine/Methamphe tamine Negative [facility] Barbiturate Screen Urine Negative [facility] Benzodiazepine Screen, Urine Negative [facility] Cocaine Metabolite Negative [facility] Methadone,Meconium Negative [facility] Opiate Quantitative Urine Negative [facility] Oxycodone Negative [facility] Phencyclidine Negative [facility] Thc Marijuana, Urine Negative [facility] HCG ( test) Ql (U)o n 04-07-2024 Interpretation and review of laboratory results Abnormal [facility] Preg Test, Ur Positive [facility] Urinalysis macro (dipstick) panel (U)on 04-07-2024 Bilirubin, UA Negative Negative - 4(70) +++ mg/dL [facility] Blood, UA Negative Negative - 50 Dain/mcL [facility] Clarity, UA Clear [facility] Color, UA Yellow [facility] Glucose, UA Negative Negative - 1999(110) ++++ mg/dL [facility] Interpretation and review of laboratory results Abnormal [facility] Ketones, UA Negative Negative - 160(16) ++++ mg/dL [facility] Leukocytes, UA Positive Negative - 500+++ Chaparrita/mcL [facility] Comment on above: small Nitrite, UA Negative Negative - Positive [facility] pH, UA 7.0 5 - 9 [facility] Protein, UA Negative Negative - 1999(20) ++++ mg/dL [facility] Spec Grav, UA 1.025 1 - 1.03 [facility] Urobilinogen, UA 0.2 0.2 - 12 mg/dL [facility] Automated basophil %Ordered By: Addi Ortega on 04-06-2024 Basophils/100 WBC (Bld) 0.2 % Normal . [facility] Comment on above: Performed By: #### P [place]ONT TSH, TODD LIPID, PILLAR CBC, PILLAR BMP #### [facility] [address] Automated basophil countOrde red By: Addi Ortega on 04-06-2024 Basophils (Bld) [#/Vol] 0.0 10*3/uL Normal 0.0-0.2 [facility] Comment on above: Result Comment: PERF ORMED BY: [place] [address] PATHOLOGIST PAINTER AND DECORATOR JORDI SMITH M.D. Performed By: #### P ILLAR TSH, PILLAR LIPID, PILLAR CBC, PILLAR BMP #### [address] Automated blood monocyte cou ntOrdered By: Addi Ortega on 04-06-2024 Monocytes (Bld) [#/Vol] 0.5 10*3/uL Normal 0.0-0.8 [facility] Comment on above: Performed By: #### P ILLAR TSH, PILLAR LIPID, PILLAR CBC, PILLAR BMP #### [address] Automated eosinophil %Ordere d By: Addi Ortega on 04-06-2024 Eosinophils/100 WBC (Bld) 0.5 % Normal . [facility] Comment on above: Performed By: #### P ILLAR TSH, PILLAR LIPID, PILLAR CBC, PILLAR BMP #### [address] Automated eosinophil countOr dered By: Addi Ortega on 04-06-2024 Eosinophils (Bld) [#/Vol] 0.0 10*3/uL Normal 0.0-0.45 [facility] Comment on above: Performed By: #### P ILLAR TSH, PILLAR LIPID, PILLAR CBC, PILLAR BMP #### [address] Automated monocyte %Ordered By: Addi Ortega on 04-06-2024 Monocytes/100 WBC (Bld) 5.6 % Normal . [facility] Comment on above: Performed By: #### P ILLAR TSH, PILLAR LIPID, PILLAR CBC, PILLAR BMP #### [address] Automated neutrophil %Ordere d By: Addi Ortega on 04-06-2024 Neutrophils/100 WBC (Bld) 64.9 % Normal . [facility] Comment on above: Performed By: #### P ILLAR TSH, PILLAR LIPID, PILLAR CBC, PILLAR BMP #### [place] [address] [place] Basophils Auto (Bld) [#/Vol] Ordered By: Addi Ortega on 04-06-2024 Basophils (Bld) [#/Vol] Automated basophil count 0.0-0.2 [facility] Basophils/100 WBC Auto (Bld) Ordered By: Addi Ortega on 04-06-2024 Basophils/100 WBC (Bld) Automated basophil % . [facility] Calcium [Mass/volume] in Ser um or PlasmaOrdered By: Addi Ortega on 04-06-2024 Calcium [Mass/Vol] 8.9 mg/dL Normal 8.6-10.3 [facility] Comment on above: Performed By: #### P ILLAR TSH, PILLAR LIPID, PILLAR CBC, PILLAR BMP #### [facility] [address] Calcium [Mass/Vol] Calcium [Mass/volume ] in Serum or Plasma 8.6-10.3 [facility] Carbon dioxide, total [Moles /volume] in Serum or PlasmaOrdered By: Addi Ortega on 04-06-2024 CO2 [Moles/Vol] 22.0 mmol/L Normal 21.0-31.0 [facility] Comment on above: Performed By: #### P ILLAR TSH, PILLAR LIPID, PILLAR CBC, PILLAR BMP #### [facility] [address] CO2 [Moles/Vol] Carbon dioxide, tota l [Moles/volume] in Serum or Plasma 21.0-31.0 [facility] Chloride [Moles/volume] in S ghada or PlasmaOrdered By: Addi Ortega on 04-06-2024 Chloride [Moles/Vol] 106 mmol/L Normal 98-107 [facility] Comment on above: Performed By: #### P ILLAR TSH, PILLAR LIPID, PILLAR CBC, PILLAR BMP #### [facility] [address] [place] [address] [place] Chloride [Moles/Vol] Chloride [Moles/vol ume] in Serum or Plasma 98-107 [facility] Cholesterol [Mass/volume] in Serum or PlasmaOrdered By: Addi Ortega on 04-06-2024 Cholesterol [Mass/Vol] 159 mg/dL Normal 140-200 [facility] Comment on above: Chol less than 200 m g/dl low riskChol 201-239 mg/dl borderline riskChol 240 mg/dl and greater high risk Result Comment: Chol less than 200 mg/dl low risk Chol 201-239 mg/dl borderline risk Chol 240 mg/dl and greater high risk Performed By: #### P ILLAR TSH, PILLAR LIPID, PILLAR CBC, PILLAR BMP #### [facility] [address] [place] [address] Cholesterol [Mass/Vol] Cholesterol [Mass/volume] in Serum or Plasma 140-200 [facility] Comment on above: Chol less than 200 m g/dl low riskChol 201-239 mg/dl borderline riskChol 240 mg/dl and greater high risk Cholesterol in HDL [Mass/vol ume] in Serum or PlasmaOrdered By: Addi Ortega on 04-06-2024 Cholesterol in HDL [Mass/Vol] Serum or plasma high density lipoprotein (HDL) cholesterol measurement 23 [facility] Comment on above: HDL CHOL ATP-III CLA SSIFICATION Cardiovascular RiskHDL > or equal to 60 mg/dL LOWHDL < 40 mg/dL HIGH Cholesterol in LDL Calc [Mas s/Vol]Ordered By: Addi Ortega on 04-06-2024 Cholesterol in LDL [Mass/Vol] 95 mg/dL 0-100 [facility] Comment on above: LDL ATP III CLASSIFI CATIONLDL less than 100 mg/dL OptimalLDL 100-129 mg/dL Near or above optimalLDL 130-159 mg/dL Borderline highLDL 160-189 mg/dL HighLDL greater than 189 mg/dL Very high Cholesterol in LDL [Mass/Vol] Cholesterol in LDL [Mass/volume] in Serum or Plasma by calculation 0-100 [facility] Comment on above: LDL ATP III CLASSIFI CATIONLDL less than 100 mg/dL OptimalLDL 100-129 mg/dL Near or above optimalLDL 130-159 mg/dL Borderline highLDL 160-189 mg/dL HighLDL greater than 189 mg/dL Very high Cholesterol in VLDL Calc [Ma ss/Vol]Ordered By: Addi Ortega on 04-06-2024 Cholesterol in VLDL [Mass/Vol] 15 mg/dL [facility] Cholesterol in VLDL [Mass/Vol] Cholesterol in VLDL [Mass/volume] in Serum or Plasma by calculation [facility] Creatinine [Mass/volume] in Serum or PlasmaOrdered By: Addi Ortega on 04-06-2024 Creatinine [Mass/Vol] 0.44 mg/dL Low 0.60-1.20 [facility] Comment on above: Performed By: #### P ILLAR TSH, PILLAR LIPID, PILLAR CBC, PILLAR BMP #### [facility] [address] Creatinine [Mass/Vol] Creatinine [Mass/v olume] in Serum or Plasma Low 0.60-1.20 [facility] Employee Basic Metabolic Suero nargis 04-06-2024 GFR/1.73 sq M.predicted MDRD (S/P/Bld) [Vol rate/Area] mL/min/{1.73_m2} Normal [facility] Comment on above: Performed By: #### P ILLAR TSH, PILLAR LIPID, PILLAR CBC, PILLAR BMP #### [facility] [address] Employee Complete Blood Coun ton 04-06-2024 Mean Corpuscular HGB Conc 35.4 g/dL High 32.0-35.0 [facility] Comment on above: Performed By: #### P ILLAR TSH, PILLAR LIPID, PILLAR CBC, PILLAR BMP #### [address] NRBC% 0.0 /100{WBC} Normal 0-0.5 [facility] Comment on above: Performed By: #### P ILLAR TSH, PILLAR LIPID, PILLAR CBC, PILLAR BMP #### [facility] [address] Employee Lipid Profileon LDL Cholesterol,Calculate d 95 mg/dL Normal 0-100 [facility] Comment on above: Result Comment: LDL ATP III CLASSIFICATION LDL less than 100 mg/dL Optimal LDL 100-129 mg/dL Near or above optimal LDL 130-159 mg/dL Borderline high LDL 160-189 mg/dL High LDL greater than 189 mg/dL Very high Performed By: #### P ILLAR TSH, PILLAR LIPID, PILLAR CBC, PILLAR BMP #### [facility] [address] Triglyceride w/Reflex 79 mg/dL Normal 0-149 [facility] Comment on above: Result Comment: TRIG ATP III CLASSIFICATION TRIG less than 150 mg/dL Normal TRIG 150-199 mg/dL Borderline high TRIG 200-500 mg/dL High TRIG greater than 500 mg/dL Very high Standard traceable to the Center for Disease Conrtrol and Prevention (CDC) test method. Performed By: #### P ILLAR TSH, PILLAR LIPID, PILLAR CBC, PILLAR BMP #### [facility] [address] VLDL CHOLESTEROL 15 mg/dL Normal [facility] Comment on above: Performed By: #### P ILLAR TSH, PILLAR LIPID, PILLAR CBC, PILLAR BMP #### [facility] [address] Employee Thyroid Stim Hormon gokul 04-06-2024 Employee Thyroid Stim Hormone 2.72 u[iU]/mL Normal 0.45-5.33 [facility] Comment on above: Result Comment: PERF ORMED BY: [place] [address] PATHOLOGIST PAINTER AND DECORATOR JORDI SMITH M.D. Performed By: #### P ILLAR TSH, PILLAR LIPID, PILLAR CBC, PILLAR BMP #### [facility] [address] Eosinophils Auto (Bld) [#/Vo l]Ordered By: Addi Ortega on 04-06-2024 Eosinophils (Bld) [#/Vol] Automated eosinophil count 0.0-0.45 [facility] Eosinophils/100 WBC Auto (Bl d)Ordered By: Addi Ortega on 04-06-2024 Eosinophils/100 WBC (Bld) Automated eosinophil % . [facility] Erythrocyte distribution wid th Auto (RBC) [Ratio]Ordered By: Addi Ortega on 04-06-2024 Erythrocyte distribution width (RBC) [Ratio] Erythrocyte distribution width [Ratio] by Automated count 11.9-15.3 [facility] Erythrocyte distribution wid th [Ratio] by Automated countOrdered By: Addi Ortega on 04-06-2024 Erythrocyte distribution width (RBC) [Ratio] 12.7 % Normal 11.9-15.3 [facility] Comment on above: Performed By: #### P ILLAR TSH, PILLAR LIPID, PILLAR CBC, PILLAR BMP #### [facility] [address] [place] [address] [place] Erythrocytes [#/volume] in B lood by Automated countOrdered By: Addi Ortega on 04-06-2024 RBC (Bld) [#/Vol] 4.04 10*6/uL Normal 3.60-5.00 [facility] Comment on above: Performed By: #### P ILLAR TSH, PILLAR LIPID, PILLAR CBC, PILLAR BMP #### [facility] [address] [place] [address] [place] Glucose [Mass/volume] in Ser um or PlasmaOrdered By: Adid Ortega on 04-06-2024 Glucose [Mass/Vol] 82 mg/dL Normal 70-100 [facility] Comment on above: Performed By: #### P ILLAR TSH, PILLAR LIPID, PILLAR CBC, PILLAR BMP #### [facility] [address] [place] [address] [place] Glucose [Mass/Vol] Glucose [Mass/volume ] in Serum or Plasma 70-100 [facility] Hematocrit Auto (Bld) [Volum e fraction]Ordered By: Addi Ortega on 04-06-2024 Hematocrit (Bld) [Volume fraction] Hematocrit [Volume Fraction] of Blood by Automated count 34.0-46.4 [facility] Hematocrit [Volume Fraction] of Blood by Automated countOrdered By: Addi Ortega on 04-06-2024 Hematocrit (Bld) [Volume fraction] 37.6 % Normal 34.0-46.4 [facility] Comment on above: Performed By: #### P ILLAR TSH, PILLAR LIPID, PILLAR CBC, PILLAR BMP #### [facility] [address] [place] [id number] [place] Hemoglobin [Mass/volume] in BloodOrdered By: Addi Ortega on 04-06-2024 Hemoglobin (Bld) [Mass/Vol] 13.3 g/dL Normal 11.8-15.4 [facility] Comment on above: Performed By: #### P ILLAR TSH, PILLAR LIPID, PILLAR CBC, PILLAR BMP #### [place] [address] [place] Hemoglobin (Bld) [Mass/Vol] Hemoglobin [Mass/volume] in Blood 11.8-15.4 [facility] Leukocytes [#/volume] correc hamilton for nucleated erythrocytes in Blood by Automated counOrdered By: Addi Ortega on 04-06-2024 WBC corrected for nucl RBC Auto (Bld) [#/Vol] 8.9 10*3/uL 3.8-11.6 [facility] WBC corrected for nucl RBC Auto (Bld) [#/Vol] Leukocytes [#/volume] corrected for nucleated erythrocytes in Blood by Automated coun 3.8-11.6 [facility] Leukocytes [#/volume] in Blo od by Automated countOrdered By: Addi Ortega on 04-06-2024 WBC (Bld) [#/Vol] 8.9 10*3/uL Normal 3.8-11.6 [facility] Comment on above: Performed By: #### P ILLAR TSH, PILLAR LIPID, PILLAR CBC, PILLAR BMP #### [place] [address] [place] Lymphocytes Auto (Bld) [#/Vo l]Ordered By: Addi Ortega on 04-06-2024 Lymphocytes (Bld) [#/Vol] Lymphocytes [#/volume] in Blood by Automated count 1.00-4.8 [facility] Lymphocytes [#/volume] in Bl ood by Automated countOrdered By: Addi Ortega on 04-06-2024 Lymphocytes (Bld) [#/Vol] 2.5 10*3/uL Normal 1.00-4.8 [facility] Comment on above: Performed By: #### P ILLAR TSH, PILLAR LIPID, PILLAR CBC, PILLAR BMP #### [place] [address] [place] Lymphocytes/100 WBC Auto (Bl d)Ordered By: Addi Ortega on 04-06-2024 Lymphocytes/100 WBC (Bld) Lymphocytes/100 leukocytes in Blood by Automated count . [facility] Lymphocytes/100 leukocytes i n Blood by Automated countOrdered By: Addi Ortega on 04-06-2024 Lymphocytes/100 WBC (Bld) 28.8 % Normal . [facility] Comment on above: Performed By: #### P ILLAR TSH, PILLAR LIPID, PILLAR CBC, PILLAR BMP #### [facility] [address] MCH Auto (RBC) [Entitic mass ]Ordered By: Addi Ortega on 04-06-2024 MCH (RBC) [Entitic mass] MCH [Entitic mass] by Automated count 24.7-34.3 [facility] MCH [Entitic mass] by Automa hamilton countOrdered By: Addi Ortega on 04-06-2024 MCH (RBC) [Entitic mass] 32.9 pg Normal 24.7-34.3 [facility] Comment on above: Performed By: #### P ILLAR TSH, PILLAR LIPID, PILLAR CBC, PILLAR BMP #### [facility] [address] MCHC Auto (RBC) [Mass/Vol]Or dered By: Addi Ortega on 04-06-2024 MCHC (RBC) [Mass/Vol] 35.4 g/dL High 32.0-35.0 [facility] MCHC (RBC) [Mass/Vol] MCHC [Mass/volume] by Automated count High 32.0-35.0 [facility] MCV Auto (RBC) [Entitic vol] Ordered By: Addi Ortega on 04-06-2024 MCV (RBC) [Entitic vol] MCV [Entitic volume] by Automated count 80-100 [facility] MCV [Entitic volume] by Auto mated countOrdered By: Addi Ortega on 04-06-2024 MCV (RBC) [Entitic vol] 93.2 fL Normal 80-100 [facility] Comment on above: Performed By: #### P ILLAR TSH, PILLAR LIPID, PILLAR CBC, PILLAR BMP #### [facility] [address] [place] [id number] [place] Monocytes Auto (Bld) [#/Vol] Ordered By: Addi Ortega on 04-06-2024 Monocytes (Bld) [#/Vol] Automated blood monocyte count 0.0-0.8 [facility] Monocytes/100 WBC Auto (Bld) Ordered By: Addi Ortega on 04-06-2024 Monocytes/100 WBC (Bld) Automated monocyte % . [facility] Neutrophils Auto (Bld) [#/Vo l]Ordered By: Addi Ortega on 04-06-2024 Neutrophils (Bld) [#/Vol] Neutrophils [#/volume] in Blood by Automated count 1.8-7.7 [facility] Neutrophils [#/volume] in Bl ood by Automated countOrdered By: Addi Ortega on 04-06-2024 Neutrophils (Bld) [#/Vol] 5.8 10*3/uL Normal 1.8-7.7 [facility] Comment on above: Performed By: #### P ILLAR TSH, PILLAR LIPID, PILLAR CBC, PILLAR BMP #### [facility] [address] [place] [address] [place] Neutrophils/100 WBC Auto (Bl d)Ordered By: Addi Ortega on 04-06-2024 Neutrophils/100 WBC (Bld) Automated neutrophil % . [facility] No Panel InformationOrdered By: Addi Ortega on 04-06-2024 Estimated GFR (CKD-EPI) > 60.0 mL/Min [facility] Creatinine Clearance (Chem N/A [facility] Nucleated erythrocytes [Pres ence] in Blood by Automated countOrdered By: Addi Ortega on 04-06-2024 Nucleated RBC Auto Ql (Bld) 0.0 /100{WBC} 0-0.5 [facility] Nucleated RBC Auto Ql (Bld) Nucleated erythrocytes [Presence] in Blood by Automated count 0-0.5 [facility] Platelet mean volume Auto (B ld) [Entitic vol]Ordered By: Addi Ortega on 04-06-2024 Platelet mean volume (Bld) [Entitic vol] Platelet mean volume [Entitic volume] in Blood by Automated count 6.3-10.7 [facility] Platelet mean volume [Entiti c volume] in Blood by Automated countOrdered By: Addi Ortega on 04-06-2024 Platelet mean volume (Bld) [Entitic vol] 8.8 fL Normal 6.3-10.7 [facility] Comment on above: Performed By: #### P ILLAR TSH, PILLAR LIPID, PILLAR CBC, PILLAR BMP #### [facility] [address] Platelets Auto (Bld) [#/Vol] Ordered By: Addi Ortega on 04-06-2024 Platelets (Bld) [#/Vol] Platelets [#/volume] in Blood by Automated count 150-450 [facility] Platelets [#/volume] in Bloo d by Automated countOrdered By: Addi Ortega on 04-06-2024 Platelets (Bld) [#/Vol] 274 10*3/uL Normal 150-450 [facility] Comment on above: Performed By: #### P ILLAR TSH, PILLAR LIPID, PILLAR CBC, PILLAR BMP #### [facility] [address] [place] [address] Potassium [Moles/volume] in Serum or PlasmaOrdered By: Addi Ortega on 04-06-2024 Potassium [Moles/Vol] 4.0 mmol/L Normal 3.5-5.1 [facility] Comment on above: Performed By: #### P ILLAR TSH, PILLAR LIPID, PILLAR CBC, PILLAR BMP #### [facility] [address] Potassium [Moles/Vol] Potassium [Moles/v olume] in Serum or Plasma 3.5-5.1 [facility] RBC Auto (Bld) [#/Vol]Ordere d By: Addi Ortega on 04-06-2024 RBC (Bld) [#/Vol] Erythrocytes [#/volu me] in Blood by Automated count 3.60-5.00 [facility] Serum or plasma anion gap de terminationOrdered By: Addi Ortega on 04-06-2024 Anion gap [Moles/Vol] 11.0 mmol/L Normal 6.0-15.0 [facility] Comment on above: Performed By: #### P ILLAR TSH, PILLAR LIPID, PILLAR CBC, PILLAR BMP #### [facility] [address] Anion gap [Moles/Vol] Serum or plasma an ion gap determination 6.0-15.0 [facility] Serum or plasma high density lipoprotein (HDL) cholesterol measurementOrdered By: Addi Ortega on 04-06-2024 Cholesterol in HDL [Mass/Vol] 48 mg/dL Normal 23-92 [facility] Comment on above: HDL CHOL ATP-III CLA SSIFICATION Cardiovascular RiskHDL > or equal to 60 mg/dL LOWHDL < 40 mg/dL HIGH Result Comment: HDL CHOL ATP-III CLASSIFICATION Cardiovascular Risk HDL > or equal to 60 mg/dL LOW HDL < 40 mg/dL HIGH Performed By: #### P ILLAR TSH, PILLAR LIPID, PILLAR CBC, PILLAR BMP #### [facility] [address] Serum or plasma total choles terol/high density lipoprotein (HDL) cholesterol mass ratOrdered By: Addi Ortega on 04-06-2024 Cholesterol.total/Cho lesterol in HDL [Mass ratio] 3.3 {ratio} Normal <5.0 [facility] Comment on above: Performed By: #### P ILLAR TSH, PILLAR LIPID, PILLAR CBC, PILLAR BMP #### [facility] [address] Cholesterol.total/Cho lesterol in HDL [Mass ratio] Serum or plasma total cholesterol/high density lipoprotein (HDL) cholesterol mass rat <5.0 [facility] Sodium [Moles/volume] in Ser um or PlasmaOrdered By: Addi Ortega on 04-06-2024 Sodium [Moles/Vol] 135 mmol/L Low 136-145 [facility] Comment on above: Performed By: #### P ILLAR TSH, PILLAR LIPID, PILLAR CBC, PILLAR BMP #### [facility] [address] Sodium [Moles/Vol] Sodium [Moles/volume ] in Serum or Plasma Low 136-145 [facility] Thyrotropin [Units/volume] i n Serum or PlasmaOrdered By: Addi Ortega on 04-06-2024 TSH Qn 2.72 m[IU]/L 0.45-5.33 [facility] TSH Qn Thyrotropin [Units/v olume] in Serum or Plasma 0.45-5.33 [facility] Triglyceride [Mass/volume] i n Serum or PlasmaOrdered By: Addi Ortega on 04-06-2024 Triglyceride [Mass/Vol] 79 mg/dL 0-149 [facility] Comment on above: TRIG ATP III CLASSIF ICATIONTRIG less than 150 mg/dL NormalTRIG 150-199 mg/dL Borderline highTRIG 200-500 mg/dL High TRIG greater than 500 mg/dL Very highStandard traceable to the Center for Disease Conrtrol and Prevention (CDC) test method. Triglyceride [Mass/Vol] Triglyceride [Mass/volume] in Serum or Plasma 0-149 [facility] Comment on above: TRIG ATP III CLASSIF ICATIONTRIG less than 150 mg/dL NormalTRIG 150-199 mg/dL Borderline highTRIG 200-500 mg/dL High TRIG greater than 500 mg/dL Very highStandard traceable to the Center for Disease Conrtrol and Prevention (CDC) test method. Urea nitrogen [Mass/volume] in Serum or PlasmaOrdered By: Addi Ortega on 04-06-2024 Urea nitrogen [Mass/Vol] 7 mg/dL Normal 03-09 [facility] Comment on above: Performed By: #### P ILLAR TSH, PILLAR LIPID, PILLAR CBC, PILLAR BMP #### [facility] [address] [place] [address] [facility] Urea nitrogen [Mass/Vol] Urea nitrogen [Mass/volume] in Serum or Plasma 03-09 [facility] WBC Auto (Bld) [#/Vol]Ordere d By: Addi Ortega on 04-06-2024 WBC (Bld) [#/Vol] Leukocytes [#/volume ] in Blood by Automated count 3.8-11.6 [facility] ED Note-Physicianon 03-20-20 ED Note-Physician [...] and Complexity of Problems Differential Diagnosis: [] [facility] Data External documents reviewed: [] My [...] with the patient. 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 Discussed return precautions. [...] Nath In 3 days 03/21/2024 EDT [address] [place] [address]- Business (1) Additional Instructions: DARWIN JONES In 3 days [address] [facility] [place] [address] [place] [address]- [phone] Business (1) Additional Instructions: Patient Education Threatened Miscarriage Subchorionic Hematoma Attestation Patient seen and evaluated by the physician placement assistant. Attending physician was present in the emergency department and supervised care. This visit was performed by both the physician and an APC. I performed all aspects of the MDM as documented. This report was transcribed using voice recognition software. Every effort was made to ensure accuracy, however, inadvertently computerized metal solderer mistakes may be present. Appropriate healthc (more content not included)... Normal [facility] Comment on above: Result Comment: Elec tronically Signed By: Hector Correa PA-C\.br\Date and Time Signed: 03/18/24 12:11 EDT\.br\Electronically Co-Signed By: Toan Lake DO\.br\Date and Time Co-Signed: 03/20/24 07:17 EDT ABO/Rhon 03-18-2024 ABO/Rh Negative Invalid Interpretation Code [facility] Comment on above: Performed By: #### 2 [id number] #### [facility] [address] [place] [address] BLOOD BANKOrdered By: Nikky Brennan on 03-18-2024 ABO/Rh Interp Negative Invalid Interpretation Code [facility] BB Subsection BMPon 03-18-2024 Anion gap [Moles/Vol] 12 mmol/L Normal 6-16 [facility] Comment on above: Performed By: #### 2 [id number] #### [facility] [address] [place] [address] Calcium [Mass/Vol] 9.2 mg/dL Normal 8.9-11.1 [facility] Comment on above: Performed By: #### 2 [id number] #### [facility] [address] [place] [address] Chloride [Moles/Vol] 105 mmol/L Normal 101-111 [facility] Comment on above: Performed By: #### 2 [id number] #### [facility] [address] [place] [address] CO2 [Moles/Vol] 23 mmol/L Normal 21-31 [facility] Comment on above: Performed By: #### 2 [id number] #### [facility] [address] [place] [address] Creatinine [Mass/Vol] 0.5 mg/dL Normal 0.5-1.3 [facility] Comment on above: Performed By: #### 2 [id number] #### [facility] [address] [place] [address] Glucose [Mass/Vol] 92 mg/dL Normal 55-199 [facility] Comment on above: Performed By: #### 2 [id number] #### [facility] [address] [place] [address] Potassium [Moles/Vol] 3.8 mmol/L Normal 3.5-5.3 [facility] Comment on above: Performed By: #### 2 [id number] #### [facility] [address] [place] [address] Sodium [Moles/Vol] 136 mmol/L Normal 135-145 [facility] Comment on above: Performed By: #### 2 [id number] #### [facility] [address] [place] [address] Urea nitrogen [Mass/Vol] 9 mg/dL Normal 5-21 [facility] Comment on above: Performed By: #### 2 [id number] #### [facility] [address] [place] [address] Urea nitrogen/Creatinine [Mass ratio] 18 No Units Normal 10-20 [facility] Comment on above: Performed By: #### 2 [id number] #### [facility] [address] [place] [address] [facility] [place] 03-18-2024 [place] [address] m[IU]/mL High 1-3 [facility] Comment on above: Result Comment: 'F N ON < 1 - 3' ' 0.2 - 1 WEEK = 5 TO 50' ' 1 - 2 WEEKS = 50 - 500' ' 2 - 3 WEEKS = 100 - 5000' ' 3 - 4 WEEKS = 500 - 23232' ' 4 - 5 WEEKS = 1000 - 64683' ' 5 - 6 WEEKS = 77550 - 331287' ' 6 - 8 WEEKS = 99725 - 287839' ' 8 - 12 WEEKS = 71526 - 476922' Performed By: #### 2 [id number] #### [facility] [address] [place] [address] CBC w/ Auto Diffon 4 Basophils/100 WBC (Bld) 0.6 % Normal 0.0-2.0 [facility] Comment on above: Performed By: #### 2 [id number] #### [facility] [address] [place] [address] Basophils/Leukocytes Auto (Bld) [Pure # fraction] 0.0 E9/L Normal 0.0-0.2 [facility] Comment on above: Performed By: #### 2 [id number] #### [facility] [address] [place] [address] Eosinophils (Bld) [#/Vol] 0.0 E9/L Normal 0.0-0.5 [facility] Comment on above: Performed By: #### 2 [id number] #### [facility] [address] [place] [address] Eosinophils/100 WBC (Bld) 0.5 % Normal 0.0-8.0 [facility] Comment on above: Performed By: #### 2 [id number] #### [facility] [address] [place] [address] Erythrocyte distribution width (RBC) [Ratio] 12.5 % Normal 10.9-14.2 [facility] Comment on above: Performed By: #### 2 [id number] #### [facility] [address] [place] [address] Hematocrit (Bld) [Volume fraction] 40.2 % Normal 34.0-46.0 [facility] Comment on above: Performed By: #### 2 [id number] #### [facility] [address] [place] [address] Hemoglobin (Bld) [Mass/Vol] 13.8 g/dL Normal 12.0-16.0 [facility] Comment on above: Performed By: #### 2 [id number] #### [facility] [address] [place] [address] Lymphocytes (Bld) [#/Vol] 2.4 E9/L Normal 1.0-4.0 [facility] Comment on above: Performed By: #### 2 [id number] #### [facility] [address] [place] [address] Lymphocytes/100 WBC (Bld) 28.4 % Normal 14.0-50.0 [facility] Comment on above: Performed By: #### 2 [id number] #### [facility] [address] [place] [address] MCH (RBC) [Entitic mass] 32.3 pg Normal 27.0-34.0 [facility] Comment on above: Performed By: #### 2 [id number] #### [facility] [address] [place] [address] MCHC (RBC) [Mass/Vol] 34.3 g/dL Normal 31.4-36.0 [facility] Comment on above: Performed By: #### 2 [id number] #### [facility] [address] [place] [address] MCV (RBC) [Entitic vol] 94.2 fL Normal 80.0-100.0 [facility] Comment on above: Performed By: #### 2 [id number] #### [facility] [address] [place] [address] Monocytes (Bld) [#/Vol] 0.4 E9/L Normal 0.2-1.0 [facility] Comment on above: Performed By: #### 2 [id number] #### [facility] [address] [place] [address] Neutrophils (Bld) [#/Vol] 5.4 E9/L Normal 2.0-7.5 [facility] Comment on above: Performed By: #### 2 297361 #### [facility] [address] [place] [address] Neutrophils/100 WBC (Bld) 65.4 % Normal 36.0-75.0 [facility] Comment on above: Performed By: #### 2 710241 #### [facility] [address] [place] [address] Platelet mean volume (Bld) [Entitic vol] 8.5 fL Normal 6.4-10.8 [facility] Comment on above: Performed By: #### 2 [id number] #### [facility] [address] [place] [address] Platelets (Bld) [#/Vol] 249.0 E9/L Normal 150.0-500. 0 [facility] Comment on above: Performed By: #### 2 [id number] #### [facility] [address] [place] [address] RBC (Bld) [#/Vol] 4.3 E12/L Normal 4.3-5.9 [facility] Comment on above: Performed By: #### 2 315781 #### [facility] [address] [place] [address] WBC corrected for nucl RBC Auto (Bld) [#/Vol] 8.3 E9/L Normal 4.0-11.0 [facility] Comment on above: Performed By: #### 2 [id number] #### [facility] [address] [place] [address] CHEMISTRYOrdered By: SYSTEM SYSTEM on 03-18-2024 Anion [...] 199 mg/[place] [address] m[IU]/mL High 1 - 3 mIU/mL [facility] Comment on above: Result Comment: 'F N ON < 1 - 3' ' 0.2 - 1 WEEK = 5 TO 50' ' 1 - 2 WEEKS = 50 - 500' ' 2 - 3 WEEKS = 100 - 5000' ' 3 - 4 WEEKS = 500 - 97885' ' 4 - 5 WEEKS = 1000 - 06620' ' 5 - 6 WEEKS = 55164 - 242751' ' 6 - 8 WEEKS = 37[address] - 205960' ' 8 - 12 WEEKS = 701[address] - 731860' Potassium [Moles/Vol] 3.8 mmol/L Normal 3.5 - 5.3 mmol/L [facility] Sodium [Moles/Vol] 136 mmol/L Normal 135 - 145 mmol/L [facility] Urea nitrogen [Mass/Vol] 9 mg/dL Normal 5 - 21 mg/dL [facility] Urea nitrogen/Creatinine [Mass ratio] 18 mg/mg Normal 10 - 20 [facility] ED Clinical Summaryon 2023 ED Clinical Summary ED Clinical Summary [place] [id number] ED Clinical Summary Person Information Name: TAWNYA HERRING [facility] Age: 28 Years : 1995 Sex: Female Language: Bhutanese PCP: DARWIN JONES CNP Marital Status: Single Phone: [phone] Visit Id: Visit Reason: Vaginal bleeding - [...] 03/18/2024 12:15:02 03/18/2024 12:15:02 03/18/2024 12:15:02 ADDRESS: [address] [place] [phone] PHYS DOC NOTES: MEDICAL INFORMATION: Prescriptions Given: Medications to Continue with No Changes Other Medications citalopram (CeleXA 20 mg Tab) 1 Tablets By Mouth every day. PATIENT EDUCATION INFORMATION: Instructions: Threatened Miscarriage; Subchorionic Hematoma Follow up: With: Address: When: Rogelio Nath [address] [place], [place] [phone] Business (1) In 3 days 03/21/2024 With: Address: When: DARWIN JONES [address] [place], [place] [phone] Business (1) In 3 days DIAGNOSIS: Subchorionic bleed; Threatened Normal [facility] ED Patient Summaryon 024 ED Patient Summary ED Patient Summary [address] [address] Patient Discharge Instructions Person Information Name: TAWNYA HERRING Age: 28 Years Arrival Date: 03/18/2024 08:06:19 Discharge Diagnosis: Subchorionic bleed; Threatened Primary Care Physician: DARWIN JONES CNP Provider Information Primary Provider: Toan Lake DO [employer] Serum Inspector:None The exam and treatment you received in the Emergency Department were for an urgent problem and are not intended as complete care. It is important that you follow up with a doctor, nurse practitioner, or physician?s placement assistant for ongoing care. If your symptoms [...] Instructions: With: Address: When: [facility]ath [address] [facility] [address] [address], [place] [address] Business (1) In 3 days 03/21/2024 With: Address: When: DARWIN JONES [address] [facility] [place] [phone] [facility] (1) In 3 days In the event that this physician does not participate in your insurance network, please consult with your insurance company to find a nearby participating provider. Patient Education Materials: Threatened Miscarriage; Subchorionic Hematoma A MESSAGE TO ALL PATIENTS REGARDING OPIOIDS PRESCRIPTION OPIOIDS: WHAT YOU NEED TO KNOW Prescription opioids can be used to help relieve wwxlcebe-hw-tkjokx pain and are often prescribed following a [...] you be (more content not included)... Normal [facility] HEMATOLOGYOrdered By: SYSTEM SYSTEM on 03-18-2024 Basophils/100 [...] 24 Bilirubin Ql (U) Negative Normal Negative [facility] Comment on above: Performed By: #### 4 [id number] #### [facility] [address] [place] [address] Clarity (U) Clear Normal Clear [facility] Comment on above: Performed By: #### 4 [id number] #### [facility] [address] [place] [address] Color (U) Yellow Normal Yellow [facility] Comment on above: Result Comment: Micr oscopic readings are only performed on those samples that meet specific criteria set forth by [facility]. Performed By: #### 4 [id number] #### [facility] [address] [place] [address] Epithelial cells.squamous Auto (Urine sed) [#/Area] 0-2 Invalid Interpretation Code [facility] Comment on above: Performed By: #### 4 [id number] #### [facility] [address] [place] [address] Glucose Ql (U) Negative Normal Negative [facility] Comment on above: Performed By: #### 4 [id number] #### [facility] [address] [place] [address] Hemoglobin Auto test strip (U) [Mass/Vol] 3+ mg/dL Abnormal Negative [facility] Comment on above: Performed By: #### 4 [id number] #### [facility] [address] [place] [address] Ketones Auto test strip Ql (U) Negative Normal Negative [facility] Comment on above: Performed By: #### 4 [id number] #### [facility] [address] [place] [address] Leukocyte esterase Auto test strip Ql (U) 25 Chaparrita/uL Normal Negative [facility] Comment on above: Performed By: #### 4 [id number] #### [facility] [address] [place] [address] Mucus Auto Ql (U) Trace Normal Negative [facility] Comment on above: Performed By: #### 4 [id number] #### [facility] [address] [place] [address] Nitrite Auto test strip Ql (U) Negative Normal Negative [facility] Comment on above: Performed By: #### 4 [id number] #### [facility] [address] [place] [address] pH (U) 7.5 [pH] Invalid Interpretation Code 5.0-9.0 [facility] Comment on above: Performed By: #### 4 [id number] #### [facility] [address] [place] [address] Protein Ql (U) Trace Abnormal Negative [facility] Comment on above: Performed By: #### 4 [id number] #### [facility] [address] [place] [address] RBC Ql (U) 31-75 Abnormal 0-3 [facility] Comment on above: Performed By: #### 4 [id number] #### [facility] [address] [place] [address] Specific gravity (U) [Rel density] 1.023 Invalid Interpretation Code 1.005-1.03 0 [facility] Comment on above: Performed By: #### 4 [id number] #### [facility] [address] [place] [address] Urobilinogen (U) [Mass/Vol] Negative Normal Negative [facility] Comment on above: Performed By: #### 4 [id number] #### [facility] [address] [place] [address] WBC Auto (Urine sed) [#/Area] 0-5 Normal 0-5 [facility] Comment on above: Performed By: #### 4 [id number] #### [facility] [address] [place] [address] Type of Urine collection method Clean Catch Normal [facility] Comment on above: Performed By: #### 4 [id number] #### [facility] [address] [place] [address] URINALYSISOrdered By: SYSTEM SYSTEM on 03-18-2024 Bilirubin Ql (U) Negative Normal Negativemg /dL [facility] UA Auto SS Clarity (U) Clear (03/18/24 8:17 AM) Normal Clear [facility] UA Auto SS Color (U) Yellow 1 (03/18/24 8:17 AM) Normal Yellow [facility] UA Auto SS Comment on above: Interpretive Data: M icroscopic readings are only performed on those samples that meet specific criteria set forth by [facility]. Epithelial cells.squamous Auto (Urine sed) [#/Area] [...] intrauterine , with heart rate 125 bpm. Rose-rump length 3.22 mm. Mean sac diameter 1.74 [...] Transabdominal Ultrasound Performed Transvaginal Ultrasound Performed Normal [facility] US Transvaginalon 03-18-2024 US Transvaginal Exam Date/Time: 03/18/2024 11:41 EDT Reason for Exam: Vaginal bleeding Report Please review ultrasound pelvis for ultrasound transvaginal report. Ordering Provider: Hector Correa FINAL REPORT Dictated: 03/18/2024 12:06 pm Luis Alfredo Bunch MD Signed (Electronic Signature): 03/18/2024 12:06 pm Signed by: Luis Alfredo Bunch MD Transcribed by: EDWIN Technologist: MARCOS Normal [facility] eGFRon 03-18-2024 eGFR 131 mL/min/1.73 m2 Normal >=59 [facility] Comment on above: Order Comment: Order added by Discern Expert. Performed By: #### 1 [id number] #### [facility] [address] [place] [address] Progesteroneon 02-24-2024 Progesterone 9.9 ng/mL Normal . [facility] Comment on above: Result Comment: Foll icular phase 0.1 - 0.9 Luteal phase 1.8 - 23.9 Ovulation phase 0.1 - 12.0 First trimester 11.0 - 44.3 Second trimester 25.4 - 83.3 Third trimester 58.7 - 214.0 Postmenopausal 0.0 - 0.1 Performed at: [facility] [id number] Manager Gyn: Alexis Ashton PhD, Phone: [phone] PERFORMED BY: [place] [address] [place] [address] PATHOLOGIST PAINTER AND DECORATOR JORDI SMITH M.D. Performed By: #### P ANTHONY ####[facility] , Serum or plasma progesterone measurement (mass/volume)Ordered By: Brain Way on 02-24-2024 Progesterone [Mass/Vol] 9.9 ng/mL . [facility] Comment on above: Follicular phase 0.1 - 0.9 Luteal phase 1.8 - 23.9 Ovulation phase 0.1 - 12.0 First trimester 11.0 - 44.3 Second trimester 25.4 - 83.3 Third trimester 58.7 - 214.0 Postmenopausal 0.0 - 0.1Performed at: [facility] [place] [address] [id number] Director: Alexis Ashton PhD, Phone: [phone] Progesteroneon 01-24-2024 Progesterone 8.5 ng/mL Normal . [facility] Comment on above: Result Comment: Foll icular phase 0.1 - 0.9 Luteal phase 1.8 - 23.9 Ovulation phase 0.1 - 12.0 First trimester 11.0 - 44.3 Second trimester 25.4 - 83.3 Third trimester 58.7 - 214.0 Postmenopausal 0.0 - 0.1 Performed at: [facility] [address] [place] [address] [id number] Manager Gyn: Alexis Ashton PhD, Phone: [phone] PERFORMED BY: [place] [address] [place] [address] PATHOLOGIST PAINTER AND DECORATOR JORDI SMITH M.D. Performed By: #### P ANTHONY ####[facility] , Serum or plasma progesterone measurement (mass/volume)Ordered By: Brain Way on 01-24-2024 Progesterone [Mass/Vol] 8.5 ng/mL . [facility] Comment on above: Follicular phase 0.1 - 0.9 Luteal phase 1.8 - 23.9 Ovulation phase 0.1 - 12.0 First trimester 11.0 - 44.3 Second trimester 25.4 - 83.3 Third trimester 58.7 - 214.0 Postmenopausal 0.0 - 0.1Performed at: [address] [id number] Director: Alexis Ashton PhD, Phone: [phone] Progesteroneon 12-27-2023 Progesterone 13.3 ng/mL Normal . [facility] Comment on above: Result Comment: Foll icular phase 0.1 - 0.9 Luteal phase 1.8 - 23.9 Ovulation phase 0.1 - 12.0 First trimester 11.0 - 44.3 Second trimester 25.4 - 83.3 Third trimester 58.7 - 214.0 Postmenopausal 0.0 - 0.[address] Performed at: [facility] [employer] [id number] Manager Gyn: Alexis Ashton PhD, Phone: [phone] PERFORMED BY: [place] [address] [place] [address] PATHOLOGIST PAINTER AND DECORATOR JORDI SMITH M.D. Performed By: #### P ANTHONY ####[facility] , Serum or plasma progesterone measurement (mass/volume)Ordered By: Brain Way on 12-27-2023 Progesterone [Mass/Vol] 13.3 ng/mL . [facility] Comment on above: Follicular phase 0.1 - 0.9 Luteal phase 1.8 - 23.9 Ovulation phase 0.1 - 12.0 First trimester 11.0 - 44.3 Second trimester 25.4 - 83.3 Third trimester 58.7 - 214.0 Postmenopausal 0.0 - 0.1Performed at: [facility] [id number] Director: Alexis Ashton PhD, Phone: [phone] Progesteroneon 11-30-2023 Progesterone 16.9 ng/mL Normal . [facility] Comment on above: Result Comment: Foll icular phase 0.1 - 0.9 Luteal phase 1.8 - 23.9 Ovulation phase 0.1 - 12.0 First trimester 11.0 - 44.3 Second trimester 25.4 - 83.3 Third trimester 58.7 - 214.0 Postmenopausal 0.0 - 0.1 Performed at: [facility] [id number] Manager Gyn: Alexis Ashton PhD, Phone: [phone] PERFORMED BY: [place] [address] [place] [address] PATHOLOGIST PAINTER AND DECORATOR JORDI SMITH M.D. Performed By: #### P ANTHONY ####[facility] , Serum or plasma progesterone measurement (mass/volume)Ordered By: Brain Way on 11-30-2023 Progesterone [Mass/Vol] 16.9 ng/mL . [facility] Comment on above: Follicular phase 0.1 - 0.9 Luteal phase 1.8 - 23.9 Ovulation phase 0.1 - 12.0 First trimester 11.0 - 44.3 Second trimester 25.4 - 83.3 Third trimester 58.7 - 214.0 Postmenopausal 0.0 - 0.1Performed at: [facility] [id number] Director: Alexis Ashton PhD, Phone: [phone] CNOVon 11-18-2023 CNOV Office Visit (ENDOMN ) -- TAWNYA HERRING ([id number]) 1995 F Date Time Provider Department 11/18/23 8:30 AM RUBY WHITTINGTON During your visit today, we recorded the following information about you: Pulse Blood pressure Weight Last Period 100/minute 132/92 110.7 kg 11/09/23 [place] 11/18/2023 7:58 AM Signed Thank [facility] choosing [facility] Department of Endocrinology, Diabetes and Metabolism. Did you know that you need to call 48 hours in advance of your scheduled visit, if you are unable to make your appointment? [facility] [place] thanks you for your commitment, because patients not showing to their appointment results in a lost opportunity for patients to receive [facility] at the [facility]. To Cancel an appointment, please choose one of the following: - Call the Appointment Call Center at [phone] - From [facility], Go to Appointments - Cancel Appts If cancelling, consider your need to reschedule to prevent further delays in your care. 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 Normal [facility] Progesteroneon 11-01-2023 Progesterone 7.1 ng/mL Normal . [facility] Comment on above: Result Comment: Foll icular phase 0.1 - 0.9 Luteal phase 1.8 - 23.9 Ovulation phase 0.1 - 12.0 First trimester 11.0 - 44.3 Second trimester 25.4 - 83.3 Third trimester 58.7 - 214.0 Postmenopausal 0.0 - 0.1 Performed at: [facility] [employer] [address] [id number] Manager Gyn: Alexis Ashton PhD, Phone: [phone] PERFORMED BY: [place] [address] [place] [address] PATHOLOGIST PAINTER AND DECORATOR JORDI SMITH M.D. Performed By: #### P ANTHONY ####[facility] , Serum or plasma progesterone measurement (mass/volume)Ordered By: Brain Way on 11-01-2023 Progesterone [Mass/Vol] 7.1 ng/mL . [facility] Comment on above: Follicular phase 0.1 - 0.9 Luteal phase 1.8 - 23.9 Ovulation phase 0.1 - 12.0 First trimester 11.0 - 44.3 Second trimester 25.4 - 83.3 Third trimester 58.7 - 214.0 Postmenopausal 0.0 - 0.1Performed at: [employer] [id number] Director: Alexis Ashton PhD, Phone: [phone] Serum or plasma progesterone measurement (mass/volume)Ordered By: Brain Way on 10-01-2023 Progesterone [Mass/Vol] 0.9 ng/mL . [facility] Comment on above: Follicular phase 0.1 - 0.9 Luteal phase 1.8 - 23.9 Ovulation phase 0.1 - 12.0 First trimester 11.0 - 44.3 Second trimester 25.4 - 83.3 Third trimester 58.7 - 214.0 Postmenopausal 0.0 - 0.1Performed at: CB - [facility] [address] [id number] Director: Alexis Ashton PhD, Phone: [phone] Ambulatory Visit Summaryon 0 09-29-2023 Ambulatory Visit [...] Up with DARWIN JONES CNP When: Where: [address] [place] [phone]- Medications What How Much When Why Instructions New amoxicillin-clavulanate (Augmentin 875 mg oral tablet) 1 Tablets By Mouth Every 12 hours Sinusitis BMI 38.0-38.9,adult Duration: 10 Days Pickup at [facility] New methylPREDNISolone (Medrol Dosepack 4 mg Tab) 1 Packets By Mouth As Directed Sinusitis BMI 38.0-38.9,adult Duration: 6 Days as directed on package labeling Pickup at [facility] Unchanged citalopram (CeleXA 20 mg Tab) 1 Tablets By Mouth Every day Contact prescribing physician if questions or concerns Unchanged citalopram (citalopram 20 mg Tab) Contact prescribing physician if questions or concerns Unchanged pyridoxine (Vitamin B6 100 mg Tab) By Mouth Every day Contact prescribing physician if questions or concerns Pharmacy Information [facility]: [address] [place] [id number] [phone] Allergies No Known Allergies No Known Medication [...] for choosing us for your care. Louie [facility] Family Medicine Office/Clini c Noteon 09-29-2023 Family [...] with voice recognition software. Occasional wrong-word or ?sykof-k-vphv? substitutions may have occurred due to the [...] with improvement. She does not use any tnxq-ftk-bqhuuie Flonase and has not tried any other [...] # 20 tab(s), Refills(s) 0, Pharmacy: [facility], 170.2, cm, 09/29/23 10:44:00 EST, Height/Length Dosing, 112, kg, 09/29/23 10:44:00 EST, Weight Dosing methylPREDNISolone, = 1 packet(s), Oral, As Directed, as directed on package labeling, X 6 day(s), # 21 tab(s), Refills(s) 0, Pharmacy: [facility], 170.2, cm, 09/29/23 10:44:00 EST, Height/Length Dosing, 112, kg, 09/29/23 10:44:00 EST, Weight Dosing 2. BMI 38.0-38.9,adult (Z68.38: Body mass index [BMI] 38.0-38.9, adult) The standard range for ages 18 and olde (more content not included)... Normal [facility] Comment on above: Result Comment: Elec tronically [...] ? Medicines that treat allergies (antihistamines). ? Epib-ixj-qbjmqyw pain relievers. ? If caused by bacteria, [...] home: Medicines ? Take, use, or apply mpdo-lio-scavbjc and prescription medicines only as told by [...] water are not available, use hand director global strategic publisher sales. ? Do not smoke. Avoid being around people who are smoking (secondhand smoke). ? Keep all follow-up visits. This is important. Contact a health care provider if: ? You have a fever. ? Your symptoms get (more content not included)... [facility] CNPNon 07-16-2023 CNPN Telephone (ENDCMN) -- TAWNYA HERRING ([id number]) 1995 F Date Time Provider Department 07/16/23 [...] KENAN GOMEZ on 07/16/23 [facility] CNOVon 06-08-2023 CNOV Office Visit (OTOLLN ) -- TAWNYA HERRING ([id number]) 1995 F Date Time Provider Department 06/08/23 [...] will be in touch with results via Jump or Fallt HPI: Tawnya is a 27 year old [...] Low Allergies (more content not included)... Normal [facility] Alanine aminotransferase [En zymatic activity/volume] in Serum or PlasmaOrdered By: Addi Ortega on 04-08-2023 ALT [Catalytic activity/Vol] 28 U/L 7-52 [facility] Albumin [Mass/volume] in Ser um or Plasma by Bromocresol green (BCG) dye binding methoOrdered By: Addi Ortega on 04-08-2023 Albumin BCG dye [Mass/Vol] 4.8 g/dL 3.5-5.7 [facility] Alkaline phosphatase [Enzyma tic activity/volume] in Serum or PlasmaOrdered By: Addi Ortega on 04-08-2023 ALP [Catalytic activity/Vol] 61 U/L 34-104 [facility] Aspartate aminotransferase [ Enzymatic activity/volume] in Serum or PlasmaOrdered By: Addi Ortega on 04-08-2023 AST [Catalytic activity/Vol] 13 U/L 13-39 [facility] Basophils Auto (Bld) [#/Vol] Ordered By: Addi Ortega on 04-08-2023 Basophils (Bld) [#/Vol] 0.0 10*3/uL 0.0-0.2 [facility] Basophils/100 WBC Auto (Bld) Ordered By: Addi Ortega on 04-08-2023 Basophils/100 WBC (Bld) 0.4 % . [facility] Bilirubin.total [Mass/volume ] in Serum or PlasmaOrdered By: Addi Ortega on 04-08-2023 Bilirubin [Mass/Vol] 0.4 mg/dL 0.3-1.0 [facility] Calcium [Mass/volume] in Ser um or PlasmaOrdered By: Addi Ortega on 04-08-2023 Calcium [Mass/Vol] 9.5 mg/dL 8.6-10.3 [facility] Carbon dioxide, total [Moles /volume] in Serum or PlasmaOrdered By: Addi Ortega on 04-08-2023 CO2 [Moles/Vol] 25.4 mmol/L 21.0-31.0 [facility] Chloride [Moles/volume] in S ghada or PlasmaOrdered By: Addi Ortega on 04-08-2023 Chloride [Moles/Vol] 106 mmol/L 98-107 [facility] Cholesterol [Mass/volume] in Serum or PlasmaOrdered By: Addi Ortega on 04-08-2023 Cholesterol [Mass/Vol] 162 mg/dL 140-200 [facility] Comment on above: Chol less than 200 m g/dl low riskChol 201-239 mg/dl borderline riskChol 240 mg/dl and greater high risk Cholesterol in LDL Calc [Mas s/Vol]Ordered By: Addi Ortega on 04-08-2023 Cholesterol in LDL [Mass/Vol] 99 mg/dL 0-100 [facility] Comment on above: LDL ATP III CLASSIFI CATIONLDL less than 100 mg/dL OptimalLDL 100-129 mg/dL Near or above optimalLDL 130-159 mg/dL Borderline highLDL 160-189 mg/dL HighLDL greater than 189 mg/dL Very high Cholesterol in VLDL Calc [Ma ss/Vol]Ordered By: Addi Ortega on 04-08-2023 Cholesterol in VLDL [Mass/Vol] 18 mg/dL [facility] Creatinine [Mass/volume] in Serum or PlasmaOrdered By: Addi Ortega on 04-08-2023 Creatinine [Mass/Vol] 0.59 mg/dL 0.60-1.20 [facility] Eosinophils Auto (Bld) [#/Vo l]Ordered By: Addi Ortega on 04-08-2023 Eosinophils (Bld) [#/Vol] 0.1 10*3/uL 0.0-0.45 [facility] Eosinophils/100 WBC Auto (Bl d)Ordered By: Addi Ortega on 04-08-2023 Eosinophils/100 WBC (Bld) 1.3 % . [facility] Erythrocyte distribution wid th Auto (RBC) [Ratio]Ordered By: Addi Ortega on 04-08-2023 Erythrocyte distribution width (RBC) [Ratio] 12.6 % 11.9-15.3 [facility] Globulin Calc (S) [Mass/Vol] Ordered By: Addi Ortega on 04-08-2023 Globulin (S) [Mass/Vol] 2.7 g/dL [facility] Glucose [Mass/volume] in Ser um or PlasmaOrdered By: Addi Ortega on 04-08-2023 Glucose [Mass/Vol] 83 mg/dL 70-100 [facility] Hematocrit Auto (Bld) [Volum e fraction]Ordered By: Addi Ortega on 04-08-2023 Hematocrit (Bld) [Volume fraction] 39.3 % 34.0-46.4 [facility] Hemoglobin [Mass/volume] in BloodOrdered By: Addi Ortega on 04-08-2023 Hemoglobin (Bld) [Mass/Vol] 13.6 g/dL 11.8-15.4 [facility] Leukocytes [#/volume] correc hamilton for nucleated erythrocytes in Blood by Automated counOrdered By: Addi Ortega on 04-08-2023 WBC corrected for nucl RBC Auto (Bld) [#/Vol] 7.6 10*3/uL 3.8-11.6 [facility] Lymphocytes Auto (Bld) [#/Vo l]Ordered By: Addi Ortega on 04-08-2023 Lymphocytes (Bld) [#/Vol] 2.9 10*3/uL 1.00-4.8 [facility] Lymphocytes/100 WBC Auto (Bl d)Ordered By: Addi Ortega on 04-08-2023 Lymphocytes/100 WBC (Bld) 38.6 % . [facility] MCH Auto (RBC) [Entitic mass ]Ordered By: Addi Ortega on 04-08-2023 MCH (RBC) [Entitic mass] 31.6 pg 24.7-34.3 [facility] MCHC Auto (RBC) [Mass/Vol]Or dered By: Addi Ortega on 04-08-2023 MCHC (RBC) [Mass/Vol] 34.5 g/dL 32.0-35.0 [facility] MCV Auto (RBC) [Entitic vol] Ordered By: Addi Ortega on 04-08-2023 MCV (RBC) [Entitic vol] 91.7 fL 80-100 [facility] Monocytes Auto (Bld) [#/Vol] Ordered By: Addi Ortega on 04-08-2023 Monocytes (Bld) [#/Vol] 0.4 10*3/uL 0.0-0.8 [facility] Monocytes/100 WBC Auto (Bld) Ordered By: Addi Ortega on 04-08-2023 Monocytes/100 WBC (Bld) 5.8 % . [facility] Neutrophils Auto (Bld) [#/Vo l]Ordered By: Addi Ortega on 04-08-2023 Neutrophils (Bld) [#/Vol] 4.1 10*3/uL 1.8-7.7 [facility] Neutrophils/100 WBC Auto (Bl d)Ordered By: Addi Ortega on 04-08-2023 Neutrophils/100 WBC (Bld) 53.9 % . [facility] No Panel InformationOrdered By: Addi Ortega on 04-08-2023 Estimated GFR (CKD-EPI) > 60.0 mL/Min [facility] Nicotine Metabolite Negative Cutoff=25 [facility] Comment on above: Performed at: - [address] [id number] Director: Catherine Mendoza MD, Phone: [phone] Pharmacy Creatinine Clearance (Chem N/A [facility] Nucleated erythrocytes [Pres ence] in Blood by Automated countOrdered By: Addi Ortega on 04-08-2023 Nucleated RBC Auto Ql (Bld) 0.0 /100{WBC} 0-0.5 [facility] Platelet mean volume Auto (B ld) [Entitic vol]Ordered By: Addi Ortega on 04-08-2023 Platelet mean volume (Bld) [Entitic vol] 8.6 fL 6.3-10.7 [facility] Platelets Auto (Bld) [#/Vol] Ordered By: Addi Ortega on 04-08-2023 Platelets (Bld) [#/Vol] 361 10*3/uL 150-450 [facility] Potassium [Moles/volume] in Serum or PlasmaOrdered By: Addi Ortega on 04-08-2023 Potassium [Moles/Vol] 4.6 mmol/L 3.5-5.1 [facility] Protein [Mass/volume] in Ser um or PlasmaOrdered By: Addi Ortega on 04-08-2023 Protein [Mass/Vol] 7.5 g/dL 6.4-8.9 [facility] RBC Auto (Bld) [#/Vol]Ordere d By: Addi Ortega on 04-08-2023 RBC (Bld) [#/Vol] 4.29 10*6/uL 3.60-5.00 [facility] Serum or plasma albumin/glob ulin mass ratioOrdered By: Addi Ortega on 04-08-2023 Albumin/Globulin [Mass ratio] 1.8 {ratio} [facility] Serum or plasma anion gap de terminationOrdered By: Addi Ortega on 04-08-2023 Anion gap [Moles/Vol] 12.2 mmol/L 6.0-15.0 [facility] Serum or plasma high density lipoprotein (HDL) cholesterol measurementOrdered By: Addi Ortega on 04-08-2023 Cholesterol in HDL [Mass/Vol] 45 mg/dL 23-92 [facility] Comment on above: HDL CHOL ATP-III CLA SSIFICATION Cardiovascular RiskHDL > or equal to 60 mg/dL LOWHDL < 40 mg/dL HIGH Serum or plasma total choles terol/high density lipoprotein (HDL) cholesterol mass ratOrdered By: Addi Ortega on 04-08-2023 Cholesterol.total/Cho lesterol in HDL [Mass ratio] 3.6 {ratio} <5.0 [facility] Sodium [Moles/volume] in Ser um or PlasmaOrdered By: Addi Ortega on 08-24-2023 Sodium [Moles/Vol] 139 mmol/L 136-145 [facility] Thyrotropin [Units/volume] i n Serum or PlasmaOrdered By: Addi Ortega on 04-08-2023 TSH Qn 4.55 m[IU]/L 0.45-5.33 [facility] Triglyceride [Mass/volume] i n Serum or PlasmaOrdered By: Addi Ortega on 04-08-2023 Triglyceride [Mass/Vol] 92 mg/dL 0-149 [facility] Comment on above: TRIG ATP III CLASSIF ICATIONTRIG less than 150 mg/dL NormalTRIG 150-199 mg/dL Borderline highTRIG 200-500 mg/dL High TRIG greater than 500 mg/dL Very highStandard traceable to the Center for Disease Conrtrol and Prevention (CDC) test method. Urea nitrogen [Mass/volume] in Serum or PlasmaOrdered By: Addi Ortega on 04-08-2023 Urea nitrogen [Mass/Vol] 18 mg/dL 7-25 [facility] WBC Auto (Bld) [#/Vol]Ordere d By: Addi Ortega on 04-08-2023 WBC (Bld) [#/Vol] 7.6 10*3/uL 3.8-11.6 [facility] C Urineon 03-24-2023 Bacteria identified Cx Nom [...] Locations R1: This test was performed at: [facility], [address] [place] [address], [id number]- , , [facility] Comment on above: Performed By: #### 2 [id number], [id number], [id number], [id number], [id number], [id number] #### [facility] [address] [place] [address] CT Abdomen/Pelvis w/o Contrcary ace 03-23-2023 CT Abdomen/Pelvis w/o Contrast Exam Date/Time: [...] Oral contrast amount in ml's: 0 Normal [facility] Discharge Instructionson Discharge Instructions [id number]:127 Normal [facility] ED Note-Physicianon 03-23-20 ED Note-Physician Basic Information [...] medications. States that she was at [facility], where she did wait about [...] and Complexity of Problems Differential Diagnosis: [] [facility] Data External documents reviewed: [] My [...] # 28 cap(s), Refills(s) 0, Pharmacy: [facility], 170.2, cm, 03/22/23 20:14:00 EDT, Height/Length Dosing, 113.5, kg, 03/22/23 20:14:00 EDT, Weight Dosing ketorolac, 30 mg = 1 mL, Injection, IV Push, Once, Stop date 03/22/23 20:51:00 EDT, STAT, Start date 03/22/23 20:51:00 EDT, 03/22/23 20:51:00 EDT ondansetron, 4 mg = 2 mL, Injection, IV Push, Once, Stop date 03/22 (more content not included)... Normal [facility] Comment on above: Result Comment: Elec tronically Signed By: Hector Correa PA-C\.br\Date and Time Signed: 03/22/23 23:35 EDT\.br\Electronically Co-Signed By: Gabriel Curtis DO.br\Date and Time Co-Signed: 03/23/23 03:21 EDT RAD - Preliminary Cat Scan R eporton 03-23-2023 RAD - Preliminary Cat Scan Report [id number]:127 Normal [facility] Auto Diffon 03-22-2023 Basophils/100 WBC (Bld) 0.5 % Normal 0.0-2.0 [facility] Comment on above: Order Comment: Order Added by Discern Expert. Performed By: #### 2 [id number], [id number], [id number], 1263964, [id number], [id number] #### [facility] [address] [place] [address] Basophils/Leukocytes Auto (Bld) [Pure # fraction] 0.0 E9/L Normal 0.0-0.2 [facility] Comment on above: Order Comment: Order Added by Discern Expert. Performed By: #### 2 [id number], [id number], [id number], 5702479, 8902822, [id number] #### [facility] [address] [place] [address] Eosinophils/100 WBC (Bld) 1.5 % Normal 0.0-8.0 [facility] Comment on above: Order Comment: Order Added by Discern Expert. Performed By: #### 2 912255, 1628546, 12506697, 4313418, 2938960, 6366651 #### [facility] [address] [place] [address] Eosinophils/Leukocyte s Auto (Bld) [Pure # fraction] 0.1 E9/L Normal 0.0-0.5 [facility] Comment on above: Order Comment: Order Added by Discern Expert. Performed By: #### 2 180445, 7845964, 52600113, 2678036, 4131827, 3504383 #### [facility] [address] [place] [address] Lymphocytes/100 WBC (Bld) 34.9 % Normal 14.0-50.0 [facility] Comment on above: Order Comment: Order Added by Discern Expert. Performed By: #### 2 495314, 2187638, [id number], 5573356, 9200880, 1114603 #### [facility] [address] [place] [address] Lymphocytes/Leukocyte s Auto (Bld) [Pure # fraction] 3.4 E9/L Normal 1.0-4.0 [facility] Comment on above: Order Comment: Order Added by Discern Expert. Performed By: #### 2 363211, 1390157, 43364602, 1409520, 1345793, 5218574 #### [facility] [address] [place] [address] Monocytes/100 WBC (Bld) 6.0 % Normal 4.0-14.0 [facility] Comment on above: Order Comment: Order Added by Discern Expert. Performed By: #### 2 760030, 4517991, 60438024, 5232569, 5349466, 7431343 #### [facility] [address] [place] [address] Monocytes/Leukocytes Auto (Bld) [Pure # fraction] 0.6 E9/L Normal 0.2-1.0 [facility] Comment on above: Order Comment: Order Added by Discern Expert. Performed By: #### 2 150481, 8855283, 88276968, 7313768, 0059950, 5773198 #### [facility] [address] [place] [address] Neutrophils/100 WBC (Bld) 57.1 % Normal 36.0-75.0 [facility] Comment on above: Order Comment: Order Added by Discern Expert. Performed By: #### 2 621842, 4169810, 61606032, 3304104, 2403403, 5929624 #### [facility] [address] [place] [address] Neutrophils/Leukocyte s Auto (Bld) [Pure # fraction] 5.6 E9/L Normal 2.0-7.5 [facility] Comment on above: Order Comment: Order Added by Discern Expert. Performed By: #### 2 158379, 6203069, 21591836, 3122121, 7691741, 9461430 #### [facility] [address] [place] [address] BMPon 03-22-2023 Creatinine [Mass/Vol] 0.5 mg/dL Normal 0.5-1.3 [facility] Comment on above: Performed By: #### 2 135839, 4381631, 47892192, 5063272, 8528664, 4485357 #### [facility] [address] [place] [address] Urea nitrogen [Mass/Vol] 15 mg/dL Normal 5-21 [facility] Comment on above: Performed By: #### 2 133034, 2751154, 40111003, 3471730, 0281412, 9269135 #### [facility] [address] [place] [address] Urea nitrogen/Creatinine [Mass ratio] 30 No Units High 10-20 [facility] [facility] [place] Comment on above: Performed By: #### 2 115287, 3873808, 07809676, 8665064, 0426334, 3686696 #### [facility] [address] [place] [address] Anion gap [Moles/Vol] 15 mmol/L Normal 6-16 [facility] Comment on above: Performed By: #### 2 531822, 9962214, 79306371, 5035466, 0696850, 6555438 #### [facility] [address] [place] [address] Calcium [Mass/Vol] 9.6 mg/dL Normal 8.9-11.1 [facility] Comment on above: Performed By: #### 2 999476, 1269858, 61210138, 8287919, 9589502, 9997207 #### [facility] [address] [place] [address] Chloride [Moles/Vol] 103 mmol/L Normal 101-111 [facility] Comment on above: Performed By: #### 2 073070, 0744277, 32863850, 9111541, 1015065, 5156676 #### [facility] [address] [place] [address] CO2 [Moles/Vol] 23 mmol/L Normal 21-31 [facility] Comment on above: Performed By: #### 2 645339, 5151225, 04387871, 9240751, 7113096, 7603692 #### [facility] [address] [place] [address] Glucose [Mass/Vol] 84 mg/dL Normal 55-199 [facility] Comment on above: Result Comment: If t his glucose result represents a fasting glucose, interpretation should refer to the following reference range: 55-99 mg/dL Performed By: #### 2 691450, 3531337, 56410377, 4624062, 7482418, 0084625 #### [facility] [address] [place] [address] Potassium [Moles/Vol] 3.7 mmol/L Normal 3.5-5.3 [facility] Comment on above: Performed By: #### 2 186355, 7415540, 85235002, 6314988, 1552952, 9235775 #### [facility] [address] [place] [address] Sodium [Moles/Vol] 137 mmol/L Normal 135-145 [facility] Comment on above: Performed By: #### 2 027547, 1811553, 61269436, 5902164, 8863124, 7203525 #### [facility] [address] [place] [address] CBC w/ Auto Diffon 3 Erythrocyte distribution width (RBC) [Ratio] 12.5 % Normal 10.9-14.2 [facility] Comment on above: Performed By: #### 2 121675, 0019012, 68375540, 4598205, 2708989, 8221559 #### [facility] [address] [place] [address] Hematocrit (Bld) [Volume fraction] 37.7 % Normal 34.0-46.0 [facility] Comment on above: Performed By: #### 2 420381, 0277053, 06896658, 0961050, 4449629, 3645216 #### [facility] [address] [place] [address] Hemoglobin (Bld) [Mass/Vol] 13.1 g/dL Normal 12.0-16.0 [facility] Comment on above: Performed By: #### 2 541845, 8799627, 21065543, 4062717, 2543591, 0395698 #### [facility] [address] [place] [address] MCH (RBC) [Entitic mass] 31.9 pg Normal 27.0-34.0 [facility] Comment on above: Performed By: #### 2 278995, 7613154, 02493858, 5105352, 2934729, 9362940 #### [facility] [address] [place] [address] MCHC (RBC) [Mass/Vol] 34.8 g/dL Normal 31.4-36.0 [facility] Comment on above: Performed By: #### 2 067575, 4729694, 76838110, 9559841, 0616845, 5282144 #### [facility] [address] [place] [address] MCV (RBC) [Entitic vol] 91.6 fL Normal 80.0-100.0 [facility] Comment on above: Performed By: #### 2 055323, 4761509, 29212417, 6655168, 6268968, 3653579 #### [facility] [address] [place] [address] Platelet mean volume (Bld) [Entitic vol] 7.6 fL Normal 6.4-10.8 [facility] Comment on above: Performed By: #### 2 820121, 1878836, 65886965, 6756497, 8820059, 7939205 #### [facility] [address] [place] [address] Platelets (Bld) [#/Vol] 306.0 E9/L Normal 150.0-500. 0 [facility] Comment on above: Performed By: #### 2 480256, 1801873, 10524452, 9013644, 7390210, 9055896 #### [facility] [address] [place] [address] RBC (Bld) [#/Vol] 4.1 E12/L Low 4.3-5.9 [facility] Comment on above: Performed By: #### 2 398946, 8368288, 45955900, 3844299, 2249936, 8672793 #### [facility] [address] [place] [address] WBC corrected for nucl RBC Auto (Bld) [#/Vol] 9.8 E9/L Normal 4.0-11.0 [facility] Comment on above: Performed By: #### 2 407835, 0139412, 44880215, 5749807, 6740571, 6195267 #### [facility] [address] [place] [address] CHEMISTRYOrdered By: SYSTEM SYSTEM on 03-22-2023 Albumin [...] 133 mL/min/1.73 m2 Normal >=59mL/min /1.73 m2 [facility] Chem S Globulin (S) [Mass/Vol] 3.1 g/dL [...] - 20 FT Remisol Consent for Treatmenton Consent for Treatment [id number] Normal [facility] Clinical Summaryon 2022 ED Clinical Summary (Inserted Image. Hayley ble to display) [place] [id number] ED Clinical Summary Person Information Name: TAWNYA HERRING [facility] Age: 27 Years : 1995 Sex: Female Language: Bhutanese PCP: DARWIN JONES CNP Marital Status: Single Phone: [phone] Visit Id: Visit Reason: Dysuria; Nausea; Flank [...] 03/22/2023 22:52:44 03/22/2023 22:52:44 03/22/2023 22:52:44 ADDRESS: [address] [place] [id number] PHYS DOC NOTES: MEDICAL INFORMATION: Prescriptions Given: New Medications [facility], [address] [place] [id number], [phone] cephalexin (Keflex 500 mg Cap) 1 Capsules By Mouth every 6 hours for 7 Days. Refills: 0. Medications to Continue with No Changes Other Medications acetaminophen-hydrocodone (Alverda 325 mg-5 mg oral tablet) 2 Tablets [...] EDUCATION INFORMATION: Instructions: Urinary Tract Infection, Adult, Azjg-mo-Dvdu Follow up: With: Address: When: D[address] [phone] Business (1) In 3 days 03/25/2023 Comments: Follow-up with your primary care provider in 3 to 5 days. If symptoms worsen, do not improve, or new symptoms arise please report back to emergency department for further evaluation. DIAGNOSIS: UTI (urinary tract infection) Normal [facility] Patient Education Noteon 03-22-2023 ED Patient [...] these instructions at home: Medicines ? Take tlud-cey-foacops and prescription medicines only as told by [...] provider. Document Revised: 03/14/2021 Document Reviewed: 03/14/2021 [email or web address] Patient Education ? 2022 [email or web address] Normal [facility] Patient Summaryon 023 ED Patient Summary (Inserted Image. Hayley ble to display) [place] [id number] Patient Discharge Instructions Person Information Name: TAWNYA HERRING Age: 27 Years Arrival Date: 03/22/2023 19:52:37 Discharge Diagnosis: UTI (urinary tract infection) Primary Care Physician: DARWIN JONES CNP Provider Information Primary Provider: Gabriel Curtis DO [employer] Serum Inspector:None The exam and treatment you received in the Emergency Department were for an urgent problem and are not intended as complete care. It is important that you follow up with a doctor, nurse practitioner, or physician?s placement assistant for ongoing care. If your symptoms become worse or you do not improve as expected and you are unable to reach your usual health care provider, you should return to the Emergency Department. We are available 24 hours a day. MONABELIA LELEY Romie has been given the following list of patient education materials, prescriptions and follow-up instructions: Follow-up Instructions: With: Address: When: DARWIN JONES [address] [place] [phone] Business (1) In 3 days 03/25/2023 Comments: [...] Patient Education Materials: Urinary Tract Infection, Adult, Kysl-uu-Rofz A MESSAGE TO ALL PATIENTS REGARDING OPIOIDS PRESCRIPTION OPIOIDS: WHAT YOU NEED TO KNOW Prescription opioids can be used to help relieve jzcqvaxy-px-eprvfn pain and are often prescribed following a [...] of op (more content not included)... Normal [facility] HEMATOLOGYOrdered By: SYSTEM SYSTEM on 03-22-2023 Basophils/100 [...] 03-22-2023 Albumin [Mass/Vol] 4.2 g/dL Normal 3.3-5.0 [facility] Comment on above: Performed By: #### 2 309064, 1757191, 21983902, 6951707, 7278908, 8734576 #### [facility] [address] [place] [address] Albumin/Globulin (S) [Mass conc ratio] 1.4 Normal 1.1-2.2 [facility] Comment on above: Performed By: #### 2 787996, 9153759, 66014817, 0085991, 9396283, 8658915 #### [facility] [address] [place] [address] ALP [Catalytic activity/Vol] 54 Int._Unit/L Normal 21-98 [facility] Comment on above: Performed By: #### 2 929942, 2053306, 73633618, 9437516, 4933699, 1418957 #### [facility] [address] [place] [address] ALT No additional P-5'-P [Catalytic activity/Vol] 24 Int._Unit/L Normal 6-46 [facility] Comment on above: Performed By: #### 2 849121, 4868638, 40339477, 5927868, 2696995, 7654708 #### [facility] [address] [place] [address] AST [Catalytic activity/Vol] 18 Int._Unit/L Normal 5-43 [facility] Comment on above: Performed By: #### 2 206345, 8492554, 58088819, 2853879, 8198514, 4313577 #### [facility] [address] [place] [address] Bilirubin [Mass/Vol] 0.7 mg/dL Normal 0.0-1.1 [facility] Comment on above: Performed By: #### 2 008521, 0079975, 69931365, 5480907, 3606952, 9113131 #### [facility] [address] [place] [address] Bilirubin.direct [Mass/Vol] 0.1 mg/dL Normal 0.1-0.4 [facility] Comment on above: Performed By: #### 2 241528, 0284083, 49082574, 1681782, 5751518, 3492936 #### [facility] [address] [place] [address] Bilirubin.indirect [Mass or moles/Vol] 0.6 mg/dL Normal 0.1-0.9 [facility] Comment on above: Performed By: #### 2 242382, 0728655, 96155427, 0949855, 2259777, 2869499 #### [facility] [address] [place] [address] Globulin (S) [Mass/Vol] 3.1 g/dL Normal 1.4-4.0 [facility] Comment on above: Performed By: #### 2 517319, 9867925, 33770089, 5585722, 5866182, 7131699 #### [facility] [address] [place] [address] Protein [Mass/Vol] 7.3 g/dL Normal 6.0-7.8 [facility] Comment on above: Performed By: #### 2 982443, 8484456, 34839022, 0380579, 0892997, 5705762 #### [facility] [address] [place] [address] Lipase Levelon 03-22-2023 Lipase [Catalytic activity/Vol] 28 U/L Normal 13-58 [facility] Comment on above: Performed By: #### 2 299362, 2825241, 71560042, 5046334, 9310646, 8047549 #### [facility] [address] [place] [address] SEROLOGYOrdered By: Lucina Shaikh on 03-22-2023 HCG.beta subunit (U) [Moles/Vol] Negative Normal [facility] Man Sero U BetaHcg Qualon 03-22-2023 HCG.beta subunit (U) [Moles/Vol] Negative Normal [facility] Comment on above: Performed By: #### 2 526086, 9337333, 45015360, 2715361, 0363984, 9533028 #### [facility] [address] [place] [address] UA With Cult Reflexon 08-07- 2023 Bacteria LM Ql (Urine sed) TRACE Normal Trace [facility] Comment on above: Performed By: #### 2 996819, 5423753, 54900856, 8154237, 0243546, 6578440 #### [facility] [address] [place] [address] Bilirubin Ql (U) Negative Normal Negative [facility] Comment on above: Performed By: #### 2 103125, 2889170, 32745841, 1402895, 3702889, 2602988 #### [facility] [address] [place] [address] Clarity (U) SL CLOUDY Abnormal Clear [facility] Comment on above: Performed By: #### 2 153665, 9995335, 24607174, 1209415, 1051943, 9098255 #### [facility] [address] [place] [address] Color (U) YELLOW Normal Yellow [facility] Comment on above: Performed By: #### 2 411849, 7643442, 21686591, 4804917, 4037841, 4539369 #### [facility] [address] [place] [address] Crystals LM Ql (Urine sed) Present Normal [facility] Comment on above: Performed By: #### 2 985920, 4150800, 69112443, 8996677, 7113430, 3138352 #### [facility] [address] [place] [address] Epithelial cells.squamous LM.HPF (Urine sed) [#/Area] 0-2 Normal 0-2 [facility] Comment on above: Performed By: #### 2 192743, 0673730, 90402170, 9041053, 0612638, 0814176 #### [facility] [address] [place] [address] Glucose Test strip (U) [Mass/Vol] Negative Normal Negative [facility] Comment on above: Performed By: #### 2 786812, 5626902, 07197549, 0133211, 5295660, 2455408 #### [facility] [address] [place] [address] Hemoglobin Ql (U) 2+ Abnormal Negative [facility] Comment on above: Performed By: #### 2 665180, 3503019, 55388459, 5927482, 9608766, 4918085 #### [facility] [address] [place] [address] Ketones (U) [Mass/Vol] 1+ Abnormal Negative [facility] Comment on above: Performed By: #### 2 215819, 2943506, 87643245, 9459414, 6207534, 0471814 #### [facility] [address] [place] [address] [place].plasma/Lithiu m.RBC (Bld) [Mass ratio] 0-3 Normal 0-3 [facility] Comment on above: Performed By: #### 2 972866, 9536795, 57441576, 0989472, 9018258, 3343838 #### [facility] [address] [place] [address] Mucus Ql (Urine sed) TRACE Normal [facility] Comment on above: Performed By: #### 2 737909, 5030986, 76453680, 3581354, 0567795, 0636489 #### [facility] [address] [place] [address] Nitrite Ql (U) Negative Normal Negative [facility] Comment on above: Performed By: #### 2 872734, 6475983, 40804415, 8681457, 9307171, 0779960 #### [facility] [address] [place] [address] pH (U) 5.5 [pH] Invalid Interpretation Code 5.0-9.0 [facility] Comment on above: Performed By: #### 2 074208, 9751603, 44146981, 8753502, 8960319, 8602602 #### [facility] [address] [place] [address] Protein (U) [Mass/Vol] Negative Normal Negative [facility] Comment on above: Performed By: #### 2 182463, 1535048, 70476463, 1269687, 6585817, 1729029 #### [facility] [address] [place] [address] Specific gravity (U) [Rel density] >=1.030 Invalid Interpretation Code 1.005-1.03 0 [facility] Comment on above: Performed By: #### 2 831871, 1953163, 57661316, 5246833, 1503045, 7150760 #### [facility] [address] [place] [address] Type of Urine collection method Clean Catch Normal [facility] Comment on above: Performed By: #### 2 891626, 8848408, 72218732, 9426519, 7219863, 8860206 #### [facility] [address] [place], [place] [address] Urobilinogen Qn (U) 0.2 {Aly'U}/dL Normal 0.0-1.0 [facility] Comment on above: Performed By: #### 2 774086, 8174055, 39609413, 0260851, 0804761, 5214706 #### [facility] [address] [place] [address] WBC Auto Ql (U) 2+ Abnormal Negative [facility] Comment on above: Performed By: #### 2 223828, 4601278, 41563090, 6665386, 2125495, 8471252 #### [facility] [address] [place] [address] WBC LM.HPF (Urine sed) [#/Area] 16-25 Abnormal 0-5 [facility] Comment on above: Performed By: #### 2 092954, 3658179, 48165388, 4918511, 9345863, 9434307 #### [facility] [address] [place] [address] URINALYSISOrdered By: Elizabeth Shaikh on 03-22-2023 Bacteria [...] Interpretation Code Negative [facility] UA Auto SS [place].plasma/Lithiu m.RBC (Bld) [Mass ratio] 0-3 /HPF Normal [...] [facility] UA Auto SS Urobilinogen Qn (U) 0.6642336 {Aly'U}/dL Normal 0.0 - 1.0 EU/dL [facility] UA Auto SS WBC Auto Ql (U) 2+ *ABN* (03/22/23 8:17 PM) Invalid Interpretation Code Negative [facility] UA Auto SS WBC LM.HPF (Urine sed) [#/Area] 16-25 /HPF Invalid Interpretation Code 0-5/HPF [facility] UA Auto SS eGFRon 03-22-2023 GFR/1.73 sq M.predicted among non-blacks MDRD (S/P/Bld) [Vol rate/Area] 133 mL/min/1.73 m2 Normal >=59 [facility] Comment on above: Order Comment: Order added by Discern Expert. Result Comment: Scientific Recruiter vinh kidney disease could be indicated at eGFR's of less than 60 mL/min/1.73m2. Kidney failure is indicated at less than 15 mL/min/1.73m2. Performed By: #### 2 996704, 5218497, 44148280, 8016049, 3331117, 8782865 #### [facility] [address] [place] [address] Alanine aminotransferase [En zymatic activity/volume] in Serum or PlasmaOrdered By: Zurdo Ortega on 02-28-2023 ALT [Catalytic activity/Vol] 21 U/L [facility] HIV 1 and HIV-2 antibody ass ay with HIV-1 p24 antigen detectionOrdered By: Zurdo Ortega on 02-28-2023 HIV 1+2 Ab+HIV1 p24 Ag IA Ql Non-Reactive Non Reactive [facility] Comment on above: HIV NegativeHIV-1/HI V-2 antibodies and HIV-1 p24 antigen were NOTdetected. There is no laboratory evidence of HIV infection. Hepatitis B virus surface Ag [Presence] in Serum or Plasma by ImmunoassayOrdered By: Zurdo Ortega on 02-28-2023 HBV surface Ag IA Ql Negative Negative [facility] Comment on above: Performed at: [facility] [address] [id number] Director: Alexis Ashton PhD, Phone: [phone] Hepatitis C virus IgG Ab [Pr esence] in Serum or Plasma by ImmunoassayOrdered By: Zurdo Ortega on 02-28-2023 HCV IgG IA Ql Non-Reactive Non Reactive [facility] No Panel InformationOrdered By: Zurdo Ortega on 02-28-2023 Hepatitis C Interpretation See comment . [facility] Comment on above: Not infected with HC V unless early or acute infection issuspected (which may be delayed in an immunocompromisedindividual), or other evidence exists to indicate HCVinfection. Serum hepatitis B virus surf nikolas antibody detectionOrdered By: Zurdo Ortega on 02-28-2023 HBV surface Ab Ql (S) Reactive . [facility] Comment on above: Non Reactive: Incons istent with immunity, less than 10 mIU/mL Reactive: Consistent with immunity, greater than 9.9 mIU/mL PAP ACOG PANEL 2: 21 to 29on 12-17-2022 . . [facility] Comment on above: Performed By: #### 4 911828 #### [facility] [address] [place] [address] [address] Regine Fortune Age Gdln ACOG Testing - [facility] Comment on above: Performed By: #### 4 645645 #### [facility] [address] [place] [address] [address] Regine Fortune DIAGNOSIS: Comment [facility] Comment on above: Result Comment: NEGA TIVE FOR INTRAEPITHELIAL LESION OR MALIGNANCY. Performed By: #### 4 873045 #### [facility] [address] [place] [address] [address] Regine Fortune Methodology: Comment [facility] Comment on above: Result Comment: This liquid based ThinPrep(R) pap test was screened with the use of an image guided system. Performed By: #### 4 029548 #### [facility] [address] [place] [address] [address] Regine Fortune Note: Comment [facility] Comment on above: Result Comment: The Pap smear is a screening test designed to aid in the detection of premalignant and malignant conditions of the uterine cervix. It is not a diagnostic procedure and should not be used as the sole means of detecting cervical cancer. Both false-positive and false-negative reports do occur. . Performed By: #### 4 175782 #### [facility] [address] [place] [address] [address] Regine Fortune Performed by: Comment Normal [facility] Comment on above: Result Comment: Amna Hernandes Care Management Associate (ASCP) Performed By: #### 4 650384 #### [facility] [address] [place] [address] Dr. Regine Fortune Reflex Criteria: Comment Normal [facility] Comment on above: Result Comment: The HPV DNA reflex criteria were not met with this specimen result therefore, no HPV testing was performed. . Performed By: #### 4 922685 #### [facility] [address] [place] [address] [address] Regine Fortune Specimen adequacy: Comment Normal [facility] Comment on above: Result Comment: Sati sfactory for evaluation. Endocervical and/or squamous metaplastic cells (endocervical component) are present. Areas of partially obscuring inflammatory exudate are present. Performed By: #### 4 157628 #### [facility] [address] [place] [address] Dr. Regine Fortune Thyrotropin [Units/volume] i n Serum or PlasmaOrdered By: Brain Way on 12-10-2022 TSH Qn 2.86 m[IU]/L 0.45-5.33 [facility] Thyroxine (T4) free [Mass/vo lume] in Serum or PlasmaOrdered By: Brain Way on 12-10-2022 Free T4 [Mass/Vol] 0.94 ng/dL 0.61-1.12 [facility] Albumin [Mass/volume] in Ser um or PlasmaOrdered By: Ofelia Hester on 10-16-2022 Albumin [Mass/Vol] 4.1 g/dL 3.2-5.5 [facility] Alkaline phosphatase [Enzyma tic activity/volume] in Serum or PlasmaOrdered By: Ofelia Hester on 10-16-2022 ALP [Catalytic activity/Vol] 56 U/L 32-92 [facility] Amylaseon 10-16-2022 Amylase 43 U/L Normal 28-100 U/L [facility] Other Amylase [Enzymatic activity/ volume] in Serum or PlasmaOrdered By: Ofelia Hester on 10-16-2022 Amylase [Catalytic activity/Vol] 43 U/L 28-100 [facility] Aspartate aminotransferase [ Enzymatic activity/volume] in Serum or PlasmaOrdered By: Ofelia Hester on 10-16-2022 AST [Catalytic activity/Vol] 16 U/L 10-42 [facility] Bilirubin.total [Mass/volume ] in Serum or PlasmaOrdered By: Ofelia Hester on 10-16-2022 Bilirubin [Mass/Vol] 0.6 mg/dL 0.3-1.2 [facility] Calcium [Mass/volume] in Ser um or PlasmaOrdered By: Ofelia Hester on 10-16-2022 Calcium [Mass/Vol] 9.3 mg/dL 8.2-10.2 [facility] Carbon dioxide, total [Moles /volume] in Serum or PlasmaOrdered By: Ofelia Hester on 10-16-2022 CO2 [Moles/Vol] 22.1 mmol/L 22.0-30.0 [facility] Chloride [Moles/volume] in S ghada or PlasmaOrdered By: Ofelia Hester on 10-16-2022 Chloride [Moles/Vol] 105 mmol/L 95-114 [facility] Comprehensive Metabolic Pane samy 10-16-2022 Albumin [Mass/Vol] 4.172470 g/dL Normal 3.2-5.5 g/dL [facility] Other ALT [Catalytic activity/Vol] 17 U/L Normal 10-60 U/L [facility] Other Bilirubin [Mass/Vol] 0.7901822 mg/dL Normal 0.3- 1.2 mg/dL [facility] Other Calcium [Mass/Vol] 9.7026177 mg/dL Normal 8.2-10 .2 mg/dL [facility] Other CO2 [Moles/Vol] 22.22862058 mmol/L Normal 22.0-3 0.0 mmol/L [facility] Other Creatinine [Mass/Vol] 0.08590402 mg/dL Normal 0. 44-1.03 mg/dL [facility] Other Potassium [Moles/Vol] 4.97131377 mmol/L Normal 3 .5-5.1 mmol/L [facility] Other Protein [Mass/Vol] 6.430495 g/dL Normal 6.1-7.9 g/dL [facility] Other Comprehensive Metabolic Panel > 60 [facility] Other Comprehensive Metabolic Panel 2.5 g/dL [facility] Other Creatinine and Glomerular fi ltration rate.predicted panel (S/P/Bld)Ordered By: Ofelia Hester on 10-16-2022 Creatinine [Mass/Vol] 0.55 mg/dL 0.44-1.03 [facility] Estimated glomerular filtrat ion rate (GFR) non- AmericanOrdered By: Ofelia Hester on 10-16-2022 GFR/1.73 sq M.predicted among non-blacks MDRD (S/P/Bld) [Vol rate/Area] > 60 mL/Min [facility] Globulin Calc (S) [Mass/Vol] Ordered By: Ofelia Hester on 10-16-2022 Globulin (S) [Mass/Vol] 2.5 g/dL [facility] Glucose [Mass/volume] in Ser um or PlasmaOrdered By: Ofelia Hester on 10-16-2022 Glucose [Mass/Vol] 86 mg/dL 70-100 [facility] Comment on above: ADA recommended refe rence rangeRandom Glucose Reference Range is dependent on time and content of last meal. Glucose of more than 200 mg/dL in a nonstressed, ambulatory subject supports the diagnosis of Diabetes Mellitus. Laboratory - Chemistry and C hemistry - challengeOrdered By: Ofelia Hester on 10-16-2022 Lipase [Catalytic activity/Vol] 35.0 U/L 22-51 [facility] Lipaseon 10-16-2022 Lipase [Catalytic activity/Vol] 35.98790 U/L Normal 22-51 U/L [facility] Other No Panel InformationOrdered By: Ofelia Hester on 10-16-2022 Estimated GFR () > 60 mL/Min [facility] Comment on above: GFR estimated refere nce range: According to KDOQI guidelines, <60 ml/min/1.73m2 is sufficient to diagnose a patient with chronic kidney disease. Pharmacy Creatinine Clearance (Chem N/A [facility] Potassium [Moles/volume] in Serum or PlasmaOrdered By: Ofelia Hester on 10-16-2022 Potassium [Moles/Vol] 4.3 mmol/L 3.5-5.1 [facility] Protein [Mass/volume] in Ser um or PlasmaOrdered By: Ofelia Hester on 10-16-2022 Protein [Mass/Vol] 6.6 g/dL 6.1-7.9 [facility] Serum or plasma alanine galaviz otransferase measurement without P-5'-P (enzymatic activiOrdered By: Ofelia Hester on 10-16-2022 ALT No additional P-5'-P [Catalytic activity/Vol] 17 U/L 10-60 [facility] Serum or plasma albumin/glob ulin mass ratioOrdered By: Ofelia Hester on 10-16-2022 Albumin/Globulin [Mass ratio] 1.6 {ratio} [facility] Serum or plasma anion gap de terminationOrdered By: Ofelia Hester on 10-16-2022 Anion gap [Moles/Vol] 13.2 mmol/L 6.0-15.0 [facility] Sodium [Moles/volume] in Ser um or PlasmaOrdered By: Ofelia Hester on 10-16-2022 Sodium [Moles/Vol] 136 mmol/L 136-146 [facility] Urea nitrogen [Mass/volume] in Serum or PlasmaOrdered By: Ofelia Hester on 10-16-2022 Urea nitrogen [Mass/Vol] 11 mg/dL 05-08 [facility] T4 FREE/FREE THYROXon 2021 Free T4 [Mass/Vol] 1.3 ng/dL 0.9 - 1.7 ng/dL [facility] TSH BLDon 07-14-2022 TSH Qn 2.480 m[IU]/L 0.270 - 4.200 mIU/L [facility] VITAMIN B12 BLOODon 07-14-20 Cobalamin (Vitamin B12) [Mass/Vol] 267 pg/mL 232 - 1,245 pg/mL [facility] Quick Fluon 06-04-2022 FLUAV Ab CF (S) [Titer] Negative [facility] Other FLUBV Ab CF (S) [Titer] Negative [facility] Other Quick Strepon 06-04-2022 S. pyogenes Org specific cx Ql (Throat) Negative [facility] Other Quick Strep [facility] Other SARS-CoV-2 (COVID-19) RNA NA A+probe Ql (Resp)on 06-04-2022 SARS-CoV-2 (COVID-19) RNA LAUREN+probe Ql (Unsp spec) Negative [facility] Other TSH DL <= 0.005 mIU/L QnOrde red By: Darwin Jones on 04-14-2022 TSH Qn 6.39 m[IU]/L 0.45-5.33 [facility] Thyroxine (T4) free [Mass/vo lume] in Serum or PlasmaOrdered By: Darwin Jones on 04-14-2022 Free T4 [Mass/Vol] 0.82 ng/dL 0.61-1.12 [facility] Triiodothyronine (T3) Free [ Mass/volume] in Serum or PlasmaOrdered By: Darwin Jones on 04-14-2022 Free T3 [Mass/Vol] 4.08 pg/mL 2.50-3.90 [facility] Serum or plasma calcium luis urement (mass/volume)Ordered By: Saad Valera on 04-06-2022 Calcium [Mass/Vol] 9.4 mg/dL 8.2-10.2 [facility] Serum or plasma intact parat hyroid hormone measurement (mass/volume)Ordered By: Saad Valera on 04-06-2022 Parathyrin.intact [Mass/Vol] 54.8 pg/mL [facility] CHEMISTRYOrdered By: Lab ROP User on 02-18-2022 Glucose [Mass/Vol] 106 mg/dL High 55 - 99 mg/dL [facility] POC Subsection Comment on above: Result Comment: Aurelia toussaint Meter POC Device SN [id number] Invalid Interpretation Code [facility] POC Subsection POC User ID [id number] Invalid Interpretation Code [facility] POC Subsection POC Username OBINNA EPPERSON Invalid Interpretation Code [facility] POC Subsection Serum or plasma thyroglobuli n antibody assay (units/volume)Ordered By: Darwin Jones on 02-13-2022 Thyroglobulin Ab Qn 971.2 [IU]/mL 0.0-0.9 [facility] Comment on above: Thyroglobulin Antibo dy measured by [employer] Method[employer] Performed at: [facility] [id number] Manager Gyn: Alexis Ashton PhD, Phone: [phone] Serum or plasma thyroperoxid ase antibody assay (units/volume)Ordered By: Darwin Jones on 02-13-2022 TPO Ab Qn 327 [IU]/mL 0-34 [facility] Thyroxine (T4) free [Mass/vo lume] in Serum or PlasmaOrdered By: Darwin Jones on 02-13-2022 Free T4 [Mass/Vol] 0.66 ng/dL 0.61-1.12 [facility] Triiodothyronine (T3) Free [ Mass/volume] in Serum or PlasmaOrdered By: Darwin Jones on 02-13-2022 Free T3 [Mass/Vol] 4.04 pg/mL 2.50-3.90 [facility] Albumin [Mass/volume] in Ser um or PlasmaOrdered By: Addi Ortega on 02-10-2022 Albumin [Mass/Vol] 4.1 g/dL 3.2-5.5 [facility] Basophils Auto (Bld) [#/Vol] Ordered By: Addi Ortega on 02-10-2022 Basophils (Bld) [#/Vol] 0.0 10*3/uL 0.0-0.2 [facility] Basophils/100 WBC Auto (Bld) Ordered By: Addi Ortega on 02-10-2022 Basophils/100 WBC (Bld) 0.4 % . [facility] Blood hemoglobin measurement (mass/volume)Ordered By: Addi Ortega on 02-10-2022 Hemoglobin (Bld) [Mass/Vol] 14.1 g/dL 11.8-15.4 [facility] Blood leukocytes automated c ount (number/volume)Ordered By: Addi Ortega on 02-10-2022 WBC (Bld) [#/Vol] 7.3 10*3/uL 4.5-11.0 [facility] Cholesterol [Mass/volume] in Serum or PlasmaOrdered By: Addi Ortega on 02-10-2022 Cholesterol [Mass/Vol] 195 mg/dL 140-200 [facility] Comment on above: Chol less than 200 m g/dl low risk Chol 201-239 mg/dl borderline risk Chol 240 mg/dl and greater high risk Cholesterol in LDL Calc [Mas s/Vol]Ordered By: Addi Ortega on 02-10-2022 Cholesterol in LDL [Mass/Vol] 113 mg/dL 0-100 [facility] Comment on above: LDL ATP III CLASSIFI CATION LDL less than 100 mg/dL Optimal LDL 100-129 mg/dL Near or above optimal LDL 130-159 mg/dL Borderline high LDL 160-189 mg/dL High LDL greater than 189 mg/dL Very high Cholesterol in VLDL Calc [Ma ss/Vol]Ordered By: Addi Ortega on 02-10-2022 Cholesterol in VLDL [Mass/Vol] 26 mg/dL [facility] Creatinine and Glomerular fi ltration rate.predicted panel (S/P/Bld)Ordered By: Addi Ortega on 02-10-2022 Creatinine [Mass/Vol] 0.71 mg/dL 0.44-1.03 [facility] Eosinophils Auto (Bld) [#/Vo l]Ordered By: Addi Ortega on 02-10-2022 Eosinophils (Bld) [#/Vol] 0.1 10*3/uL 0.0-0.45 [facility] Eosinophils/100 WBC Auto (Bl d)Ordered By: Addi Ortega on 02-10-2022 Eosinophils/100 WBC (Bld) 1.5 % . [facility] Erythrocyte distribution wid th Auto (RBC) [Ratio]Ordered By: Addi Ortega on 02-10-2022 Erythrocyte distribution width (RBC) [Ratio] 14.0 % 11.9-15.3 [facility] Estimated glomerular filtrat ion rate (GFR) non- AmericanOrdered By: Addi Ortega on 02-10-2022 GFR/1.73 sq M.predicted among non-blacks MDRD (S/P/Bld) [Vol rate/Area] > 60 mL/Min [facility] Globulin Calc (S) [Mass/Vol] Ordered By: Addi Ortega on 02-10-2022 Globulin (S) [Mass/Vol] 2.8 g/dL [facility] Hematocrit Auto (Bld) [Volum e fraction]Ordered By: Addi Ortega on 02-10-2022 Hematocrit (Bld) [Volume fraction] 40.3 % 34.0-46.4 [facility] Laboratory - Chemistry and C hemistry - challengeOrdered By: Addi Ortega on 02-10-2022 Glucose [Mass/Vol] 90 mg/dL 70-100 [facility] Laboratory - Hematology and Cell countsOrdered By: Addi Ortega on 02-10-2022 Nucleated RBC/100 WBC (Bld) [Ratio] 0.1 % 0-0.5 [facility] Lymphocytes Auto (Bld) [#/Vo l]Ordered By: Addi Ortega on 02-10-2022 Lymphocytes (Bld) [#/Vol] 3.3 10*3/uL 1.00-4.8 [facility] Lymphocytes/100 WBC Auto (Bl d)Ordered By: Addi Ortega on 02-10-2022 Lymphocytes/100 WBC (Bld) 45.2 % . [facility] MCH Auto (RBC) [Entitic mass ]Ordered By: Addi Ortega on 02-10-2022 MCH (RBC) [Entitic mass] 33.0 pg 24.7-34.3 [facility] MCHC Auto (RBC) [Mass/Vol]Or dered By: Addi Ortega on 02-10-2022 MCHC (RBC) [Mass/Vol] 34.9 g/dL 32.0-35.0 [facility] MCV Auto (RBC) [Entitic vol] Ordered By: Addi Ortega on 02-10-2022 MCV (RBC) [Entitic vol] 94.6 fL 80-100 [facility] Monocyte %Ordered By: Addi Ortega on 02-10-2022 Monocyte % 134 mg/dL 35-149 [facility] Comment on above: TRIG ATP III CLASSIF ICATION TRIG less than 150 mg/dL Normal TRIG 150-199 mg/dL Borderline high TRIG 200-500 mg/dL High TRIG greater than 500 mg/dL Very high Standard traceable to the Center for Disease Conrtrol and Prevention (CDC) test method. Monocytes Auto (Bld) [#/Vol] Ordered By: Addi Ortega on 02-10-2022 Monocytes (Bld) [#/Vol] 0.5 10*3/uL 0.0-0.8 [facility] Monocytes/100 WBC Auto (Bld) Ordered By: Addi Ortega on 02-10-2022 Monocytes/100 WBC (Bld) 6.3 % . [facility] Neutrophils Auto (Bld) [#/Vo l]Ordered By: Addi Ortega on 02-10-2022 Neutrophils (Bld) [#/Vol] 3.4 10*3/uL 1.8-7.7 [facility] Neutrophils/100 WBC Auto (Bl d)Ordered By: Addi Ortega on 02-10-2022 Neutrophils/100 WBC (Bld) 46.6 % . [facility] No Panel InformationOrdered By: Addi Ortega on 02-10-2022 Estimated GFR () > 60 mL/Min [facility] Comment on above: GFR estimated refere nce range: According to KDOQI guidelines, <60 ml/min/1.73m2 is sufficient to diagnose a patient with chronic kidney disease. Nicotine Metabolite Negative Cutoff=25 [facility] Comment on above: Performed at: [address] [id number] Manager Gyn: Catherine Mendoza MD, Phone: [phone] Pharmacy Creatinine Clearance (Chem N/A [facility] Platelet mean volume Auto (B ld) [Entitic vol]Ordered By: Addi Ortega on 02-10-2022 Platelet mean volume (Bld) [Entitic vol] 8.4 fL 6.3-10.7 [facility] Platelets Auto (Bld) [#/Vol] Ordered By: Addi Ortega on 02-10-2022 Platelets (Bld) [#/Vol] 321 10*3/uL 150-450 [facility] Protein [Mass/volume] in Ser um or PlasmaOrdered By: Addi Ortega on 02-10-2022 Protein [Mass/Vol] 6.9 g/dL 6.1-7.9 [facility] RBC Auto (Bld) [#/Vol]Ordere d By: Addi Ortega on 02-10-2022 RBC (Bld) [#/Vol] 4.26 10*6/uL 3.60-5.00 [facility] Serum or plasma alanine galaviz otransferase measurement without P-5'-P (enzymatic activiOrdered By: Addi Ortega on 02-10-2022 ALT No additional P-5'-P [Catalytic activity/Vol] 26 U/L 10-60 [facility] Serum or plasma albumin/glob ulin mass ratioOrdered By: Addi Ortega on 02-10-2022 Albumin/Globulin [Mass ratio] 1.5 {ratio} [facility] Serum or plasma alkaline hosea sphatase measurement (enzymatic activity/volume)Ordered By: Addi Ortega on 02-10-2022 ALP [Catalytic activity/Vol] 47 U/L 32-92 [facility] Serum or plasma aspartate am inotransferase measurement (enzymatic activity/volume)Ordered By: Addi Ortega on 02-10-2022 AST [Catalytic activity/Vol] 18 U/L 10-42 [facility] Serum or plasma calcium luis urement (mass/volume)Ordered By: Addi Ortega on 02-10-2022 Calcium [Mass/Vol] 9.3 mg/dL 8.2-10.2 [facility] Serum or plasma chloride radha surement (moles/volume)Ordered By: Addi Ortega on 02-10-2022 Chloride [Moles/Vol] 99 mmol/L 95-114 [facility] Serum or plasma high density lipoprotein (HDL) cholesterol measurementOrdered By: Addi Ortega on 02-10-2022 Cholesterol in HDL [Mass/Vol] 55 mg/dL 35-85 [facility] Comment on above: HDL CHOL ATP-III CLA SSIFICATION Cardiovascular Risk HDL > or equal to 60 mg/dL LOW HDL < 40 mg/dL HIGH Serum or plasma potassium me asurement (moles/volume)Ordered By: Addi Ortega on 02-10-2022 Potassium [Moles/Vol] 4.1 mmol/L 3.5-5.1 [facility] Serum or plasma sodium measu rement (moles/volume)Ordered By: Addi Ortega on 02-10-2022 Sodium [Moles/Vol] 135 mmol/L 136-146 [facility] Serum or plasma total biliru bin measurement (mass/volume)Ordered By: Addi Ortega on 02-10-2022 Bilirubin [Mass/Vol] 0.7 mg/dL 0.3-1.2 [facility] Serum or plasma total carbon dioxide measurement (moles/volume)Ordered By: Addi Ortega on 02-10-2022 CO2 [Moles/Vol] 23.3 mmol/L 22.0-30.0 [facility] Serum or plasma total choles terol/high density lipoprotein (HDL) cholesterol mass ratOrdered By: Addi Ortega on 02-10-2022 Cholesterol.total/Cho lesterol in HDL [Mass ratio] 3.5 {ratio} <5.0 [facility] Serum or plasma urea nitroge n measurement (mass/volume)Ordered By: Addi Ortega on 02-10-2022 Urea nitrogen [Mass/Vol] 17 mg/dL 9-23 [facility] TSH DL <= 0.005 mIU/L QnOrde red By: Addi Ortega on 02-10-2022 TSH Qn 57.67 m[IU]/L 0.45-5.33 [facility] No Panel Informationon 09-03 6 {mm/hr} Normal 0-34 [facility] [address] DO Work Phone: [...] Vital Signs Recorded: 03Sep2021 10:02AMRecorded: 03Sep2021 09:55AM [id number], LUE, [id number], RUE, Sitting [id number], LUE, Hyetoqd02, RUE, Sitting Heart Rate72, Apical Height5 ft 7 in [id number] lb 9.6 oz BMI Vvubktxrsc48.36 kg/m2 BSA Calculated2.05 Tobacco Useb) No EKG [...] [employer] Tobacco Screening.on 022 Tobacco use status HS b) No -[facility] 600 DO Work Phone: Vital Signs Date Time Vital Sign Value Performing Clinician Facility 10-26-2024 11:05-0400 Body mass index (BMI) [Ratio] 41.88 kg/m2 Mya Finch PA Work Phone: [facility] 10-26-2024 11:05-0400 Body weight 121.29 kg Mya Mathias PA Work Phone: [facility] 10-26-2024 11:05-0400 Diastolic blood pressure 80 mm[Hg] Mya Stef PA Work Phone: [facility] 10-26-2024 11:05-0400 Systolic blood pressure 114 mm[Hg] Mya Stef PA Work Phone: [facility] 10-18-2024 10:21-0500 Body mass index (BMI) [Ratio] 41.35 kg/m2 Mya Stef PA Work Phone: [facility] 10-18-2024 10:21-0500 Body weight 119.75 kg Mya Mathias PA Work Phone: [facility] 10-18-2024 10:21-0500 Diastolic blood pressure 80 mm[Hg] Mya Mathias PA Work Phone: [facility] 10-18-2024 10:21-0500 Systolic blood pressure 120 mm[Hg] Mya Mathias PA Work Phone: [facility] 10-14-2024 09:03-0500 Blood Pressure Location Lesley Blanco [facility] 10-14-2024 09:03-0500 Body temperature 98.24 [degF] Lesley Williser [facility] 10-14-2024 09:03-0500 Diastolic blood pressure 72 mm[Hg] Lesley Williser [facility] 10-14-2024 09:03-0500 Heart rate 118 /min Lesley Williser [facility] 10-14-2024 09:03-0500 SaO2% (BldA) [Mass fraction] 99 % Lesley Blanco [facility] 10-14-2024 09:03-0500 Systolic blood pressure 114 mm[Hg] Lesley Williser [facility] 10-10-2024 11:02-0500 Body mass index (BMI) [Ratio] 40.79 kg/m2 Brain Seamus DO Work Phone: [facility] 10-10-2024 11:02-0500 Body weight 118.12 kg Brain Seamus DO Work Phone: [facility] 10-10-2024 11:02-0500 Diastolic blood pressure 78 mm[Hg] Brain Seamus DO Work Phone: [facility] 10-10-2024 11:02-0500 Systolic blood pressure 114 mm[Hg] Brain Seamus DO Work Phone: [facility] 10-05-2024 14:20-0500 Body mass index (BMI) [Ratio] 40.72 kg/m2 Mya MCMILLAN Work Phone: [facility] 10-05-2024 14:20-0500 Body weight 117.94 kg Mya MCMILLAN Work Phone: [facility] 10-05-2024 14:20-0500 Diastolic blood pressure 70 mm[Hg] Mya MCMILLAN Work Phone: [facility] 10-05-2024 14:20-0500 Systolic blood pressure 120 mm[Hg] Mya Stef PA Work Phone: [facility] 09-19-2024 14:33-0500 Body mass index (BMI) [Ratio] 39.49 kg/m2 Brain Seamus DO Work Phone: [facility] 09-19-2024 14:33-0500 Body weight 114.36 kg Brain Seamus DO Work Phone: [facility] 09-19-2024 14:33-0500 Diastolic blood pressure 70 mm[Hg] Brain Seamus DO Work Phone: [facility] 09-19-2024 14:33-0500 Systolic blood pressure 120 mm[Hg] Brain Seamus DO Work Phone: [facility] 09-07-2024 14:44-0500 Body mass index (BMI) [Ratio] 39.75 kg/m2 Mya Finch PA Work Phone: [facility] 09-07-2024 14:44-0500 Body weight 115.12 kg Mya Mathias PA Work Phone: [facility] 09-07-2024 14:44-0500 Diastolic blood pressure 82 mm[Hg] Mya Stef PA Work Phone: [facility] 09-07-2024 14:44-0500 Systolic blood pressure 120 mm[Hg] Mya Stef PA Work Phone: [facility] 09-06-2024 14:04-0500 Body temperature 97.88 [degF] Flash Franco [facility] 09-06-2024 14:04-0500 Diastolic blood pressure 77 mm[Hg] Flash Franco [facility] 09-06-2024 14:04-0500 Heart rate 101 /min Flash Franco [facility] 09-06-2024 14:04-0500 Respiratory rate 18 /min Flash Franco [facility] 09-06-2024 14:04-0500 SaO2% (BldA) [Mass fraction] 99 % Flash Franco [facility] 09-06-2024 14:04-0500 Systolic blood pressure 122 mm[Hg] Flash Franco [facility] 09-05-2024 15:45-0500 Hourly Rounding Rogelio Nath [facility] Comment on above: Result Comment: discharge instructions g iven. monitors off and pt up to dress. 09-05-2024 15:35-0500 Hourly Rounding Rogelio Nath [facility] Comment on above: Result Comment: pt was able to keep spri te and lemon ice down. Wants to go home. 09-05-2024 14:49-0500 Hourly Rounding Rogelio Nath [facility] Comment on above: Result Comment: sprite, lemon ice and ju ice given per pt request. 09-05-2024 07:35-0500 Body temperature 98.24 [degF] Rogelio Nath [facility] 09-05-2024 07:35-0500 Diastolic blood pressure 42 mm[Hg] Rogelio Nath [facility] 09-05-2024 07:35-0500 Heart rate 109 /min Rogelio Nath [facility] 09-05-2024 07:35-0500 Mean blood pressure 65 mm[Hg] Rogelio Nath [facility] 09-05-2024 07:35-0500 Respiratory rate 18 /min Rogelio Nath [facility] 09-05-2024 07:35-0500 Systolic blood pressure 111 mm[Hg] Rogelio Nath [facility] 09-05-2024 07:30-0500 Blood Pressure Location Rogelio Naht [facility] 09-05-2024 04:32-0500 Blood Pressure Location Rogelio Nath [facility] 09-05-2024 04:32-0500 Body temperature 98.24 [degF] Rogelio Nath [facility] 09-05-2024 04:32-0500 Diastolic blood pressure 72 mm[Hg] Rogelio Nath [facility] 09-05-2024 04:32-0500 Heart rate 104 /min Rogelio Nath [facility] 09-05-2024 04:32-0500 Mean blood pressure 90 mm[Hg] Rogelio Nath [facility] 09-05-2024 04:32-0500 Respiratory rate 16 /min Rogelio Nath [facility] 09-05-2024 04:32-0500 SaO2% (BldA) [Mass fraction] 98 % Rogelio Nath [facility] 09-05-2024 04:32-0500 Systolic blood pressure 127 mm[Hg] Rogelio Nath [facility] 09-05-2024 04:00-0500 Diastolic blood pressure 64 mm[Hg] Rogelio Nath [facility] 09-05-2024 04:00-0500 Heart rate 115 /min Rogelio Nath [facility] 09-05-2024 04:00-0500 Mean blood pressure 86 mm[Hg] Rogelio Nath [facility] 09-05-2024 04:00-0500 Systolic blood pressure 129 mm[Hg] Rogelio Nath [facility] 09-05-2024 03:06-0500 Body temperature 97.7 [degF] Rogelio Nath [facility] 09-05-2024 03:06-0500 Heart rate 128 /min Rogelio Nath [facility] 09-05-2024 03:06-0500 Respiratory rate 20 /min Rogelio Ntah [facility] 09-05-2024 03:06-0500 SaO2% (BldA) [Mass fraction] 98 % Rogelio Nath [facility] 08-25-2024 12:21-0500 Body height 170.18 cm Darwin Easterwood [employer] Work Phone: [facility] 08-25-2024 12:21-0500 Body mass index (BMI) [Ratio] 39.6 kg/m2 Darwin Easterwood [employer] Work Phone: [facility] 08-25-2024 12:21-0500 Body weight 114.75 kg Darwin Easterwood [employer] Work Phone: [facility] 08-25-2024 12:21-0500 Diastolic blood pressure 84 mm[Hg] Darwin Easterwood [employer] Work Phone: [facility] 08-25-2024 12:21-0500 Heart rate 108 /min Darwin Easterwood [employer] Work Phone: [facility] 08-25-2024 12:21-0500 Respiratory rate 18 /min Darwin Easterwood [employer] Work Phone: [facility] 08-25-2024 12:21-0500 SaO2% (BldA) [Mass fraction] 98 % Darwin Easterwood [employer] Work Phone: [facility] 08-25-2024 12:21-0500 Systolic blood pressure 132 mm[Hg] Darwin Easterwood [employer] Work Phone: [facility] 08-23-2024 11:00-0500 Body mass index (BMI) [Ratio] 40.16 kg/m2 Brain Seamus DO Work Phone: [facility] 08-23-2024 11:00-0500 Body weight 116.3 kg Brain Seamus DO Work Phone: [facility] 08-23-2024 11:00-0500 Diastolic blood pressure 78 mm[Hg] Brain Seamus DO Work Phone: [facility] 08-23-2024 11:00-0500 Systolic blood pressure 120 mm[Hg] Brain Seamus DO Work Phone: [facility] 07-11-2024 13:09-0500 Body mass index (BMI) [Ratio] 38.97 kg/m2 Brain Seamus DO Work Phone: [facility] 07-11-2024 13:09-0500 Body weight 112.86 kg Brain Seamus DO Work Phone: [facility] 07-11-2024 13:09-0500 Diastolic blood pressure 76 mm[Hg] Brain Seamus DO Work Phone: [facility] 07-11-2024 13:09-0500 Systolic blood pressure 120 mm[Hg] Brain Seamus DO Work Phone: [facility] 06-28-2024 08:04-0500 Body weight Darwin Jones [employer] Work Phone: [facility] Comment on above: Not provided. 2024 14:13-0500 Diastolic blood pressure 78 mm[Hg] Hayden Reilly MD Work Phone: [facility] 2024 14:13-0500 Heart rate 88 /min Hayden Reilly MD Work Phone: [facility] 2024 14:13-0500 Systolic blood pressure 125 mm[Hg] Hayden Reilly MD Work Phone: [facility] 2024 13:18-0500 Body height 170.2 cm Hayden Reilly MD Work Phone: [facility] 06-12-2024 10:19-0400 Body mass index (BMI) [Ratio] 38.37 kg/m2 Brain Seamus DO Work Phone: [facility] 06-12-2024 10:19-0400 Body weight 111.13 kg Brain Seamus DO Work Phone: [facility] 06-12-2024 10:19-0400 Diastolic blood pressure 80 mm[Hg] Brain Seamus DO Work Phone: [facility] 06-12-2024 10:19-0400 Systolic blood pressure 122 mm[Hg] Brain Seamus DO Work Phone: [facility] 05-11-2024 11:04-0400 Body height 170.18 cm [employer] Darwin Easterwood Work Phone: [facility] 05-11-2024 11:04-0400 Body mass index (BMI) [Ratio] 38.2 kg/m2 [employer] Darwin Easterwood Work Phone: [facility] 05-11-2024 11:04-0400 Body temperature 97.8 [degF] [employer] Darwin Easterwood Work Phone: [facility] 05-11-2024 11:04-0400 Body weight 110.67 kg [employer] Darwin Easterwood Work Phone: [facility] 05-11-2024 11:04-0400 Diastolic blood pressure 74 mm[Hg] [employer]LL[employer] ASSEM[employer] Darwin Easterwood Work Phone: [facility] 05-11-2024 11:04-0400 Heart rate 90 /min [employer] Darwin Easterwood Work Phone: [facility] 05-11-2024 11:04-0400 Respiratory rate 20 /min [employer] Darwin Jones Work Phone: [facility] 05-11-2024 11:04-0400 SaO2% (BldA) [Mass fraction] 98 % PROPELLANT ASSEMBLERAlayna Jones Work Phone: [facility] 05-11-2024 11:04-0400 Systolic blood pressure 126 mm[Hg] PROPELLANT ASSEMBLERAlayna Jones Work Phone: [facility] 05-10-2024 13:50-0400 Body mass index (BMI) [Ratio] 38.39 kg/m2 Brain Seamus DO Work Phone: [facility] 05-10-2024 13:50-0400 Body weight 111.19 kg Brain Seamus DO Work Phone: [facility] 05-10-2024 13:50-0400 Diastolic blood pressure 76 mm[Hg] Brain Seamus DO Work Phone: [facility] 05-10-2024 13:50-0400 Systolic blood pressure 120 mm[Hg] Brain Seamus DO Work Phone: [facility] 04-20-2024 10:37-0400 Body mass index (BMI) [Ratio] 38.53 kg/m2 Brain Seamus DO Work Phone: [facility] 04-20-2024 10:37-0400 Body weight 111.58 kg Brain Seamus DO Work Phone: [facility] 04-20-2024 10:37-0400 Diastolic blood pressure 76 mm[Hg] Brain Seamus DO Work Phone: [facility] 04-20-2024 10:37-0400 Systolic blood pressure 122 mm[Hg] Brain Seamus DO Work Phone: [facility] 04-07-2024 09:42-0400 Body mass index (BMI) [Ratio] 38.86 kg/m2 [facility] 04-07-2024 09:42-0400 Body weight 112.55 kg [facility] 04-07-2024 09:42-0400 Diastolic blood pressure 70 mm[Hg] [facility] 04-07-2024 09:42-0400 Systolic blood pressure 120 mm[Hg] [facility] 03-18-2024 11:50-0400 Diastolic blood pressure 83 mm[Hg] Toan Steine [facility] 03-18-2024 11:50-0400 Heart rate 75 /min Toan Steine [facility] 03-18-2024 11:50-0400 Mean blood pressure 97 mm[Hg] Toan Steine [facility] 03-18-2024 11:50-0400 Respiratory rate 16 /min Toan Steine [facility] 03-18-2024 11:50-0400 SaO2% (BldA) [Mass fraction] 98 % Toan Jaya [facility] 03-18-2024 11:50-0400 Systolic blood pressure 126 mm[Hg] Toan Steine [facility] 03-18-2024 09:46-0400 Hourly Rounding Toan Steine [facility] 03-18-2024 09:11-0400 Hourly Rounding Toan Steine [facility] 03-18-2024 08:10-0400 Body temperature 98.6 [degF] Toan Jaya [facility] 03-18-2024 08:10-0400 Diastolic blood pressure 91 mm[Hg] Toan Jaya [facility] 03-18-2024 08:10-0400 Heart rate 98 /min Toan Steine [facility] 03-18-2024 08:10-0400 Hourly Rounding [place] [facility] 03-18-2024 08:10-0400 Respiratory rate 17 /min [place] [facility] 03-18-2024 08:10-0400 SaO2% (BldA) [Mass fraction] 98 % [place] [facility] 03-18-2024 08:10-0400 Systolic blood pressure 135 mm[Hg] [place] [facility] 01-25-2024 08:59-0400 Body height 170.18 cm [employer]OPELL[employer] Darwin Easterwood Work Phone: [facility] 01-25-2024 08:59-0400 Body mass index (BMI) [Ratio] 37.4 kg/m2 [employer] Darwin Easterwood Work Phone: [facility] 01-25-2024 08:59-0400 Body temperature 98 [degF] [employer]OPELL[employer] ASSEM[employer]ER Darwin Easterwood Work Phone: [facility] 01-25-2024 08:59-0400 Body weight 108.4 kg [employer] Darwin Easterwood Work Phone: [facility] 01-25-2024 08:59-0400 Diastolic blood pressure 80 mm[Hg] [employer]OPELL[employer] ASSEM[employer]ER Darwin Easterwood Work Phone: [facility] 01-25-2024 08:59-0400 Heart rate 98 /min [employer]SEM[employer] Darwin Easterwood Work Phone: [facility] 01-25-2024 08:59-0400 Respiratory rate 20 /min [employer]SEM[employer] Darwin Easterwood Work Phone: [facility] 01-25-2024 08:59-0400 SaO2% (BldA) [Mass fraction] 99 % [employer]OPELL[employer] ASSEM[employer]ER Darwin Easterwood Work Phone: [phone])[phone] [address] 01-25-2024 08:59-0400 Systolic blood pressure 122 mm[Hg] [employer]OPELL[employer] ASSEMBLER Darwin Easterwood Work Phone: [facility] 12-24-2023 09:56-0400 Body height 170.18 cm [employer]OPELL[employer] ASSEM[employer] Darwin Easterwood Work Phone: 8([phone])[phone] [address] 12-24-2023 09:56-0400 Body mass index (BMI) [Ratio] 37.7 kg/m2 [employer] Darwin Easterwood Work Phone: [phone])[phone] [place] [address] 12-24-2023 09:56-0400 Body temperature 97.6 [degF] [employer]OPELL[employer] ASSEMBLER Darwin Easterwood Work Phone: 5(702)[phone] [place] [address] 12-24-2023 09:56-0400 Body weight 109.31 kg [employer]OPELL[employer] ASSEM[employer] Darwin Easterwood Work Phone: 7(332)[phone] [place] [address] 12-24-2023 09:56-0400 Diastolic blood pressure 84 mm[Hg] [employer]OPELL[employer] ASSEMBLER Darwin Easterwood Work Phone: [facility] 12-24-2023 09:56-0400 Heart rate 102 /min [employer] Darwin Easterwood Work Phone: [facility] 12-24-2023 09:56-0400 Respiratory rate 20 /min [employer]OPELL[employer] ASSEM[employer] Darwin Easterwood Work Phone: [facility] 12-24-2023 09:56-0400 SaO2% (BldA) [Mass fraction] 98 % [employer]OPELL[employer] ASSEM[employer] Darwin Easterwood Work Phone: [phone])[phone] [place] [address] 12-24-2023 09:56-0400 Systolic blood pressure 126 mm[Hg] [employer]OPELL[employer] ASSEMBLER Darwin Easterwood Work Phone: [facility] 11-25-2023 09:01-0400 Body height 170.18 cm PROPELLANT ASSEMBLER Darwin Easterwood Work Phone: 8(253)[phone] [place] [address] 11-25-2023 09:01-0400 Body mass index (BMI) [Ratio] 37.7 kg/m2 PROPELLANT ASSEMBLERAlayna Jones Work Phone: [facility] 11-25-2023 09:01-0400 Body temperature 97 [degF] PROPELLANT ASSEMBLERAlayna Jones Work Phone: [facility] 11-25-2023 09:01-0400 Body weight 109.31 kg PROPELLANT ASSEMBLERAlayna Jones Work Phone: [facility] 11-25-2023 09:01-0400 Diastolic blood pressure 76 mm[Hg] PROPELLANT ASSEMBLERAlayna Jones Work Phone: [facility] 11-25-2023 09:01-0400 Heart rate 95 /min PROPELLANT ASSEMBLERAlayna Jones Work Phone: [facility] 11-25-2023 09:01-0400 Respiratory rate 20 /min PROPELLANT ASSEMBLERAlayna Jones Work Phone: [facility] 11-25-2023 09:01-0400 SaO2% (BldA) [Mass fraction] 98 % PROPELLANT ASSEMBLERAlayna Jones Work Phone: [facility] 11-25-2023 09:01-0400 Systolic blood pressure 120 mm[Hg] SHIRLEY Jones Work Phone: [facility] 11-18-2023 08:03-0400 Body weight 110.68 kg Ruby Whittington MD Work Phone: [facility] 11-18-2023 08:03-0400 Diastolic blood pressure 92 mm[Hg] Ruby Whittington MD Work Phone: [facility] 11-18-2023 08:03-0400 Heart rate 100 /min Ruby Whittington MD Work Phone: [facility] 11-18-2023 08:03-0400 Systolic blood pressure 132 mm[Hg] Ruby Whittington MD Work Phone: [facility] 10-20-2023 09:05-0500 Body height 170.18 cm PROPELLANT ASSEMBLERAlayna Jonesermacy Work Phone: [facility] 10-20-2023 09:05-0500 Body mass index (BMI) [Ratio] 38.3 kg/m2 [employer]OPELL[employer] ASSEMBLER Darwin Jonesermacy Work Phone: [facility] 10-20-2023 09:05-0500 Body temperature 98 [degF] PROPELLANT ASSEMBLER Darwin Jones Work Phone: [facility] 10-20-2023 09:05-0500 Body weight 111.13 kg PROPELLANT ASSEMBLERAlayna Jones Work Phone: [facility] 10-20-2023 09:05-0500 Diastolic blood pressure 78 mm[Hg] PROPELLANT ASSEMBLERAlayna Jonesermacy Work Phone: [facility] 10-20-2023 09:05-0500 Heart rate 82 /min PROPELLANT ASSEMBLERAlayna Jonesermacy Work Phone: [facility] 10-20-2023 09:05-0500 Respiratory rate 20 /min PROPELLANT ASSEMBLERAlayna Jones Work Phone: [facility] 10-20-2023 09:05-0500 SaO2% (BldA) [Mass fraction] 98 % PROPELLANT ASSEMBLERAlayna Jonesermacy Work Phone: [facility] 10-20-2023 09:05-0500 Systolic blood pressure 124 mm[Hg] PROPELLANT ASSEMBLER Darwin Jonesermacy Work Phone: [facility] 09-29-2023 10:41-0500 Blood Pressure Location [place] [facility] 09-29-2023 10:41-0500 Body temperature 98.24 [degF] [place] [facility] 09-29-2023 10:41-0500 Diastolic blood pressure 78 mm[Hg] [place] [facility] 09-29-2023 10:41-0500 Heart rate 95 /min [place] [facility] 09-29-2023 10:41-0500 SaO2% (BldA) [Mass fraction] 97 % [place] [facility] 09-29-2023 10:41-0500 Systolic blood pressure 122 mm[Hg] [place] [facility] 09-21-2023 09:00-0500 Body height 170.18 cm Darwin [employer] Other [employer] [facility] [employer] Other 09-21-2023 09:00-0500 Body mass index (BMI) [Ratio] 38.37 kg/m2 Darwin [employer] Other [employer] [facility] [employer] Other 09-21-2023 09:00-0500 Body temperature 98 [degF] Darwin [employer] Other [employer] Other 09-21-2023 09:00-0500 Body weight 111.13 kg Darwin [employer] Other [employer] Other 09-21-2023 09:00-0500 Diastolic blood pressure 84 mm[Hg] Darwin [employer] Other [employer] Other 09-21-2023 09:00-0500 Respiratory rate 20 /min Darwin [employer] Other [employer] Other 09-21-2023 09:00-0500 SaO2% (BldA) [Mass fraction] 98 % Darwin [employer] Other [employer] Other 09-21-2023 09:00-0500 Systolic blood pressure 126 mm[Hg] Darwin Easterwood Other [employer] Other 08-25-2023 09:30-0500 Body height 170.18 cm Darwin Easterwood Other [facility] 08-25-2023 09:30-0500 Body mass index (BMI) [Ratio] 39.46 kg/m2 Darwin Easterwood Other [place] [employer] Other 08-25-2023 09:30-0500 Body temperature 97.6 [degF] Darwin Easterwood Other [employer] Other 08-25-2023 09:30-0500 Body weight 114.31 kg Darwin Eastermacy Other [employer] Other 08-25-2023 09:30-0500 Body weight 114.3 kg [employer]OPELLANT ASSEMBLER Darwin Jones Work Phone: [facility] 08-25-2023 09:30-0500 Diastolic blood pressure 80 mm[Hg] Darwin Easterwood Other [facility] 08-25-2023 09:30-0500 Respiratory rate 20 /min Darwin Easterwood Other [employer] Other 08-25-2023 09:30-0500 SaO2% (BldA) [Mass fraction] 98 % Darwin Easterwood Other [employer] Other 08-25-2023 09:30-0500 Systolic blood pressure 120 mm[Hg] Darwin Easterwood Other [facility] 07-23-2023 09:30-0500 Body height 170.18 cm PROPELLANT ASSEMBLER Darwin Easterwood Work Phone: [facility] 07-23-2023 09:30-0500 Body weight 116.57 kg PROPELLANT ASSEMBLER Darwin Easterwood Work Phone: [facility] 07-23-2023 09:30-0500 Diastolic blood pressure 80 mm[Hg] PROPELLANT ASSEMBLER Darwin Easterwood Work Phone: [facility] 07-23-2023 09:30-0500 Systolic blood pressure 118 mm[Hg] [employer]OPELLANT ASSEMBLER Darwin Easterwood Work Phone: [facility] 06-23-2023 09:30-0500 Body height 170.18 cm Darwin Easterwood Other [employer] Other 06-23-2023 09:30-0500 Body mass index (BMI) [Ratio] 40.4 kg/m2 Darwin [employer] Other [employer] Other 06-23-2023 09:30-0500 Body temperature 97.4 [degF] Darwin Easterwood Other [employer] Other 06-23-2023 09:30-0500 Body weight 117.03 kg Darwin Roberterwood Other [employer] Other 06-23-2023 09:30-0500 Diastolic blood pressure 78 mm[Hg] Darwin Easterwood Other [employer] Other 06-23-2023 09:30-0500 Respiratory rate 20 /min Darwin Easterwood Other [employer] Other 06-23-2023 09:30-0500 SaO2% (BldA) [Mass fraction] 98 % Darwin Easterwood Other [employer] Other 06-23-2023 09:30-0500 Systolic blood pressure 120 mm[Hg] Darwin Easterwood Other [employer] Other 06-08-2023 14:00-0400 Body temperature 97.2 [degF] Francy Gan PA-C Work Phone: [facility] 05-26-2023 10:30-0400 Body height 170.18 cm Darwin Easterwood Other [employer] Other 05-26-2023 10:30-0400 Body mass index (BMI) [Ratio] 41.5 kg/m2 Darwin Easterwood Other [employer] Other 05-26-2023 10:30-0400 Body temperature 98.4 [degF] Darwin Easterwood Other [employer] Other 05-26-2023 10:30-0400 Body weight 120.2 kg Darwin Easterwood Other [employer] Other 05-26-2023 10:30-0400 Diastolic blood pressure 70 mm[Hg] Darwin Easterwood Other [employer] Other 05-26-2023 10:30-0400 Respiratory rate 20 /min Darwin Easterwood Other [employer] Other 05-26-2023 10:30-0400 SaO2% (BldA) [Mass fraction] 97 % Darwin Easterwood Other [employer] Other 05-26-2023 10:30-0400 Systolic blood pressure 112 mm[Hg] Darwin Easterwood Other [employer] Other 04-28-2023 09:15-0400 Body height 170.18 cm Darwin Easterwood Other [employer] Other 04-28-2023 09:15-0400 Body mass index (BMI) [Ratio] 41.34 kg/m2 Darwin Easterwood Other [employer] Other 04-28-2023 09:15-0400 Body temperature 97.2 [degF] Darwin Easterwood Other [employer] Other 04-28-2023 09:15-0400 Body weight 119.75 kg Darwin Easterwood Other [employer] Other 04-28-2023 09:15-0400 Diastolic blood pressure 82 mm[Hg] Darwin Easterwood Other [employer] Other 04-28-2023 09:15-0400 Respiratory rate 20 /min Darwin Easterwood Other [employer] Other 04-28-2023 09:15-0400 SaO2% (BldA) [Mass fraction] 97 % Darwin Easterwood Other [employer] Other 04-28-2023 09:15-0400 Systolic blood pressure 120 mm[Hg] Darwin Easterwood Other [employer] Other 04-16-2023 11:00-0400 Body height 170.18 cm Darwin Easterwood Other [employer] Other 04-16-2023 11:00-0400 Body mass index (BMI) [Ratio] 41.03 kg/m2 Darwin Easterwood Other [employer] Other 04-16-2023 11:00-0400 Body temperature 97.8 [degF] Darwin Easterwood Other [employer] Other 04-16-2023 11:00-0400 Body weight 118.84 kg Darwincary Jonesermacy Other [employer] Other 04-16-2023 11:00-0400 Diastolic blood pressure 80 mm[Hg] Darwin Easterwood Other [employer] Other 04-16-2023 11:00-0400 Respiratory rate 20 /min Darwin Easterwood Other [employer] Other 04-16-2023 11:00-0400 SaO2% (BldA) [Mass fraction] 98 % Darwin Easterwood Other [employer] Other 04-16-2023 11:00-0400 Systolic blood pressure 120 mm[Hg] Darwin Easterwood Other [employer] Other 03-22-2023 22:51-0400 Diastolic blood pressure 74 mm[Hg] Kaylinn Dokken [facility] 03-22-2023 22:51-0400 Heart rate 80 /min Kaylinn Dokken [facility] 03-22-2023 22:51-0400 Mean blood pressure 92 mm[Hg] Kaylinn Dokken [facility] 03-22-2023 22:51-0400 Respiratory rate 16 /min Kaylinn Dokken [facility] 03-22-2023 22:51-0400 SaO2% (BldA) [Mass fraction] 98 % Kaylinn Dokken [facility] 03-22-2023 22:51-0400 Systolic blood pressure 128 mm[Hg] Kaylinn Dokken [facility] 03-22-2023 21:24-0400 Heart rate 76 /min Kaylinn Dokken [facility] 03-22-2023 21:24-0400 Respiratory rate 16 /min Kaylinn Dokken [facility] 03-22-2023 21:24-0400 SaO2% (BldA) [Mass fraction] 97 % Kaylinn Dokken [facility] 03-22-2023 19:54-0400 Body temperature 98.06 [degF] Kaylinn Dokken [facility] 03-22-2023 19:54-0400 Diastolic blood pressure 89 mm[Hg] Kaylinn Dokken [facility] 03-22-2023 19:54-0400 Heart rate 81 /min Kaylinn Dokken [facility] 03-22-2023 19:54-0400 Respiratory rate 18 /min Kaylinn Dokken [facility] 03-22-2023 19:54-0400 SaO2% (BldA) [Mass fraction] 99 % Kaylinn Dokken [facility] 03-22-2023 19:54-0400 Systolic blood pressure 138 mm[Hg] Kaylinn Dokken [facility] 03-22-2023 15:18-0400 Body height 170.18 cm PROPELLANT ASSEMBLER Darwin Jonesermacy Work Phone: [facility] 03-22-2023 15:18-0400 Body temperature 98.2 [degF] PROPELLANT ASSEMBLER Darwin Jonesermacy Work Phone: [facility] 03-22-2023 15:18-0400 Body weight 120.5 kg PROPELLANT ASSEMBLER Darwin [employer] Work Phone: [facility] 03-22-2023 15:18-0400 Diastolic blood pressure 74 mm[Hg] PROPELLANT ASSEMBLER Darwin Eastermacy Work Phone: [facility] 03-22-2023 15:18-0400 Heart rate 92 /min PROPELLANT ASSEMBLER Darwin Jonesermacy Work Phone: [facility] 03-22-2023 15:18-0400 Respiratory rate 20 /min PROPELLANT ASSEMBLER Darwin [employer] Work Phone: [facility] 03-22-2023 15:18-0400 SaO2% (BldA) [Mass fraction] 97 % PROPELLANT ASSEMBLERAlayna Jonesermacy Work Phone: [facility] 03-22-2023 15:18-0400 Systolic blood pressure 175 mm[Hg] PROPELLANT ASSEMBLER Darwin Eastermacy Work Phone: [facility] 10-05-2022 09:00-0500 Body height 170.18 cm Ofeliaher Couchcassidy Other [employer] Other 10-05-2022 09:00-0500 Body mass index (BMI) [Ratio] 37.21 kg/m2 Ofelia Missler Other [employer] Other 10-05-2022 09:00-0500 Body weight 107.78 kg Ofelia Missler Other [employer] Other 10-05-2022 09:00-0500 Diastolic blood pressure 45 mm[Hg] Ofelia Missler Other [employer] Other 10-05-2022 09:00-0500 Respiratory rate 18 /min Ofelia Missler Other [employer] Other 10-05-2022 09:00-0500 SaO2% (BldA) [Mass fraction] 97 % Ofelia Missler Other [employer] Other 10-05-2022 09:00-0500 Systolic blood pressure 100 mm[Hg] Ofelia Missler Other [employer] Other 09-02-2022 11:30-0500 Body height 170.18 cm Ofelia Missler Other [employer] Other 09-02-2022 11:30-0500 Body mass index (BMI) [Ratio] 38.04 kg/m2 Ofelia Missler Other [employer] Other 09-02-2022 11:30-0500 Body weight 110.18 kg Ofelia Missler Other [employer] Other 09-02-2022 11:30-0500 Diastolic blood pressure 79 mm[Hg] Ofelia Missler Other [employer] Other 09-02-2022 11:30-0500 Respiratory rate 18 /min Ofelia Missler Other [employer] Other 09-02-2022 11:30-0500 SaO2% (BldA) [Mass fraction] 96 % Ofelia Missler Other [employer] Other 09-02-2022 11:30-0500 Systolic blood pressure 119 mm[Hg] Ofelia Missler Other [employer] Other 08-25-2022 14:00-0500 Body height 170.18 cm Lilly Fitt Other [employer] Other 08-25-2022 14:00-0500 Body mass index (BMI) [Ratio] 38.01 kg/m2 Lilly Fitt Other [employer] Other 08-25-2022 14:00-0500 Body weight 110.09 kg Lilly Fitt Other [employer] Other 07-31-2022 09:45-0500 Body height 170.18 cm Ofelia Missler Other [employer] Other 07-31-2022 09:45-0500 Body mass index (BMI) [Ratio] 38.2 kg/m2 Ofelia Missler Other [employer] Other 07-31-2022 09:45-0500 Body weight 110.63 kg Ofelia Missler Other [employer] Other 07-31-2022 09:45-0500 Diastolic blood pressure 78 mm[Hg] Ofelia Missler Other [employer] Other 07-31-2022 09:45-0500 Respiratory rate 18 /min Ofelia Missler Other [employer] Other 07-31-2022 09:45-0500 SaO2% (BldA) [Mass fraction] 96 % Ofelia Missler Other [employer] Other 07-31-2022 09:45-0500 Systolic blood pressure 135 mm[Hg] Ofelia Missler Other [employer] Other 07-14-2022 08:49-0500 Body height 170.5 cm Ruby Whittington MD Work Phone: [facility] 07-14-2022 08:49-0500 Body weight 111.58 kg Ruby Whittington MD Work Phone: [facility] 07-14-2022 08:49-0500 Diastolic blood pressure 73 mm[Hg] Ruby Whittington MD Work Phone: [facility] 07-14-2022 08:49-0500 Heart rate 92 /min Ruby Whittington MD Work Phone: [facility] 07-14-2022 08:49-0500 Systolic blood pressure 140 mm[Hg] Ruby Whittington MD Work Phone: [facility] 06-17-2022 15:45-0400 Body height 170.18 cm Ofelia Missler Other [employer] Other 06-17-2022 15:45-0400 Body mass index (BMI) [Ratio] 38.99 kg/m2 Ofelia Missler Other [employer] Other 06-17-2022 15:45-0400 Body weight 112.95 kg Ofelia Missler Other [employer] Other 06-17-2022 15:45-0400 Diastolic blood pressure 90 mm[Hg] Ofelia Missler Other [employer] Other 06-17-2022 15:45-0400 Respiratory rate 18 /min Ofeliaher Couchler Other [employer] Other 06-17-2022 15:45-0400 SaO2% (BldA) [Mass fraction] 96 % Ofeliaher Couchler Other [employer] Other 06-17-2022 15:45-0400 Systolic blood pressure 140 mm[Hg] Ofelia Couchler Other [employer] Other 06-04-2022 13:00-0400 Body height 170.18 cm Sima Ross Other [employer] Other 06-04-2022 13:00-0400 Body mass index (BMI) [Ratio] 38.37 kg/m2 Sima Ross Other [employer] Other 06-04-2022 13:00-0400 Body temperature 98.6 [degF] Sima Ross Other [employer] Other 06-04-2022 13:00-0400 Body weight 111.13 kg Sima Ross Other [employer] Other 06-04-2022 13:00-0400 Diastolic blood pressure 83 mm[Hg] Sima Ross Other [employer] Other 06-04-2022 13:00-0400 Respiratory rate 18 /min Sima Ross Other [employer] Other 06-04-2022 13:00-0400 SaO2% (BldA) [Mass fraction] 99 % Sima Ross Other [employer] Other 06-04-2022 13:00-0400 Systolic blood pressure 124 mm[Hg] Sima Ross Other [employer] Other 05-27-2022 12:15-0400 Body height 170.18 cm Lilly Luke Other [employer] Other 05-18-2022 09:30-0400 Body height 170.18 cm Ofelia Missler Other [employer] Other 05-18-2022 09:30-0400 Body mass index (BMI) [Ratio] 39.37 kg/m2 Ofelia Missler Other [employer] Other 05-18-2022 09:30-0400 Body temperature 98.1 [degF] Ofelia Missler Other [employer] Other 05-18-2022 09:30-0400 Body weight 114.04 kg Ofelia Missler Other [employer] Other 05-18-2022 09:30-0400 Diastolic blood pressure 80 mm[Hg] Ofelia Missler Other [employer] Other 05-18-2022 09:30-0400 Respiratory rate 18 /min Ofelia Missler Other [employer] Other 05-18-2022 09:30-0400 SaO2% (BldA) [Mass fraction] 99 % Ofelia Missler Other [employer] Other 05-18-2022 09:30-0400 Systolic blood pressure 115 mm[Hg] Ofelia Missler Other [employer] Other 04-17-2022 09:30-0400 Body height 170.18 cm Darwin Easterwood Other [employer] Other 04-17-2022 09:30-0400 Body mass index (BMI) [Ratio] 39.15 kg/m2 Darwin Easterwood Other [employer] Other 04-17-2022 09:30-0400 Body temperature 96.9 [degF] Darwin Easterwood Other [employer] Other 04-17-2022 09:30-0400 Body weight 113.4 kg Darwin Easterwood Other [employer] Other 04-17-2022 09:30-0400 Diastolic blood pressure 82 mm[Hg] Darwin Easterwood Other [employer] Other 04-17-2022 09:30-0400 Respiratory rate 20 /min Darwin Easterwood Other [employer] Other 04-17-2022 09:30-0400 SaO2% (BldA) [Mass fraction] 99 % Darwin Easterwood Other [employer] Other 04-17-2022 09:30-0400 Systolic blood pressure 124 mm[Hg] Darwin Easterwood Other [employer] Other 02-18-2022 21:41-0400 Diastolic blood pressure 88 mm[Hg] Fazal Antoni [facility] 02-18-2022 21:41-0400 Heart rate 84 /min Fazal Antoni [facility] 02-18-2022 21:41-0400 Mean blood pressure 101 mm[Hg] Fazal Antoni [facility] 02-18-2022 21:41-0400 Respiratory rate 17 /min Fazal Antoni [facility] 02-18-2022 21:41-0400 SaO2% (BldA) [Mass fraction] 98 % Darwin [employer] Other [employer] [facility] [employer] Other 02-18-2022 21:41-0400 Systolic blood pressure 126 mm[Hg] Fazal Antoni [facility] 02-18-2022 20:42-0400 gluc 106 mg/dL Fazal Antoni [facility] 02-18-2022 20:42-0400 gluc Fazal Antoni [facility] 02-18-2022 20:33-0400 Body temperature 98.06 [degF] Fazal Antoni [facility] 02-18-2022 20:33-0400 Diastolic blood pressure 99 mm[Hg] Fazal Antoni [facility] 02-18-2022 20:33-0400 Heart rate 99 /min Fazal Antoni [facility] 02-18-2022 20:33-0400 Respiratory rate 18 /min Fazal Antoni [facility] 02-18-2022 20:33-0400 Systolic blood pressure 153 mm[Hg] Fazal Antoni [facility] 02-18-2022 10:00-0400 Body height 170.18 cm Darwin Jones Other [employer] Other 02-18-2022 10:00-0400 Body mass index (BMI) [Ratio] 38.52 kg/m2 Darwin Easterwood Other [employer] Other 02-18-2022 10:00-0400 Body temperature 97 [degF] Darwin Easterwood Other [employer] Other 02-18-2022 10:00-0400 Body weight 111.59 kg Darwin Easterwood Other [employer] Other 02-18-2022 10:00-0400 Diastolic blood pressure 82 mm[Hg] Darwin Easterwood Other [employer] Other 02-18-2022 10:00-0400 Respiratory rate 20 /min Darwin Easterwood Other [employer] Other 02-18-2022 10:00-0400 Systolic blood pressure 118 mm[Hg] Darwin Easterwood Other [employer] Other 02-11-2022 12:00-0400 Body height 170.18 cm Darwin Easterwood Other [employer] Other 02-11-2022 12:00-0400 Body mass index (BMI) [Ratio] 37.9 kg/m2 Darwin Easterwood Other [employer] Other 02-11-2022 12:00-0400 Body temperature 97.2 [degF] Darwin Easterwood Other [employer] Other 02-11-2022 12:00-0400 Body weight 109.77 kg Darwin Easterwood Other [employer] Other 02-11-2022 12:00-0400 Diastolic blood pressure 88 mm[Hg] Darwin Joneserwood Other [employer] Other 02-11-2022 12:00-0400 Respiratory rate 20 /min Darwin Jonesermacy Other [employer] Other 02-11-2022 12:00-0400 SaO2% (BldA) [Mass fraction] 98 % Darwin Jones Other [employer] Other 02-11-2022 12:00-0400 Systolic blood pressure 126 mm[Hg] Darwin [employer] Other [employer] Other 09-03-2021 10:02-0500 Diastolic blood pressure 86 mm[Hg] Unknown Unknown [facility] [facility] DO Work Phone: 09-03-2021 10:02-0500 Systolic blood pressure 110 mm[Hg] Unknown Unknown [facility] 600 DO Work Phone: 09-03-2021 09:55-0500 Body height 170.18 cm Unknown Unknown [facility] [place] 600 DO Work Phone: 09-03-2021 09:55-0500 Body mass index (BMI) [Ratio] 32.36 kg/m2 Unknown Unknown [place] [employer] 600 DO Work Phone: 09-03-2021 09:55-0500 Body surface area Derived from formula 2.05 m2 Unknown Unknown [facility] 600 DO Work Phone: 09-03-2021 09:55-0500 Body weight 93.71 kg Unknown Unknown [facility] [place] 600 DO Work Phone: 09-03-2021 09:55-0500 Diastolic blood pressure 84 mm[Hg] Unknown Unknown [facility] 600 DO Work Phone: 09-03-2021 09:55-0500 Heart rate 72 /min Unknown Unknown [facility] 600 DO Work Phone: 09-03-2021 09:55-0500 Systolic blood pressure 122 mm[Hg] Unknown Unknown [facility] 600 DO Work Phone: Encounters Encounter Date Encounter Type Care Provider Facility Start: 10-26-2024 End: 10-26-2024 Clinisync Result Encounter Brain Chiango DO Work Phone: [facility] External [facility] Unsolicited Start: 10-26-2024 End: 10-26-2024 Clinisync Result Encounter Brain Seamus DO Work Phone: [facility] External Department Unsolicited Start: 10-26-2024 End: 10-26-2024 flow sheet Mya MCMILLAN Work Phone: [facility] Comment on above: 38 weeks gestation o f ; Third trimester Start: 10-26-2024 End: 10-26-2024 ambulatory MYA FINCH Not Available Start: 10-18-2024 End: 10-18-2024 Bamboo flowsheet Mya MCMILLAN Work Phone: [facility] Start: 10-18-2024 End: 10-18-2024 Bamboo flowsheet Mya MCMILLAN Work Phone: [facility] Start: 10-18-2024 End: 10-18-2024 ambulatory MYA FINCH Not Available Start: 10-18-2024 End: 10-18-2024 flow sheet Mya MCMILLAN Work Phone: [facility] Comment on above: 37 weeks gestation o f ; Third trimester ; Anxiety, generalized (CMS/HCC) Start: 10-14-2024 End: 10-14-2024 Lab Drop off Lesley Blanco [facility] Start: 10-14-2024 End: 10-14-2024 ambulatory Lesley Blanco Facility:[facility] Start: 10-14-2024 End: 10-14-2024 Patient encounter procedure Lesley Blanco [facility] Start: 10-13-2024 End: 10-13-2024 [...] End: 09-21-2024 Patient encounter procedure Darwin Jones [employer]LL[employer] Work Phone: [facility] [place] Work Phone: Start: 09-21-2024 End: 09-21-2024 ambulatory Darwin Jones [employer]OPELLANT [employer]SEMBLER Work Phone: [facility] Work Phone: Start: 09-19-2024 End: [...] End: 09-14-2024 Patient encounter procedure Darwin Jones [employer]OPELLANT ASSEMBLER Work Phone: [facility]Electro[facility]ostics Work Phone: Start: 09-14-2024 End: 09-14-2024 ambulatory Darwin Jones [employer]OPELLANT ASSEMBLER Work Phone: [facility] Work Phone: Start: 09-11-2024 End: [...] OB Start: 09-07-2024 Non-patient / Non-visit Darwin ewingmacy [employer]OPELLANT ASSEMBLER Work Phone: [facility] Work Phone: Start: 09-06-2024 End: 09-06-2024 Emergency department patient visit Flash Franco [facility] Start: 09-05-2024 ambulatory Rogelio Shimon [facility] Facility :[facility] Start: 09-05-2024 End: 09-05-2024 ambulatory [facility] Facility:[facility] Start: 09-05-2024 Emergency department patient visit DO Gabriel Curtis Facility:[facility] Start: 09-05-2024 End: 09-05-2024 Observation Rogelio Shimon [facility] Start: 08-25-2024 End: 08-25-2024 Clinisync Result Encounter Brain Seamus DO Work Phone: [facility] External [facility] Unsolicited Start: 08-25-2024 End: 08-25-2024 Clinisync Result Encounter Brain Seamus DO Work Phone: [facility] External [facility] Unsolicited Start: 08-25-2024 End: 08-25-2024 ambulatory Darwin Jaclyn Jones [employer]OPELLANT ASSEMBLER Work Phone: [facility] Work Phone: Start: 08-25-2024 End: 08-25-2024 Patient encounter procedure Darwin Jones [employer]OPELLANT ASSEMBLER Work Phone: [facility] Work Phone: Start: 08-23-2024 [...] Not Available Start: 08-02-2024 End: 08-02-2024 ambulatory [facility] Start: 07-31-2024 End: 07-31-2024 Patient encounter procedure Darwin Jones [employer]OPELLANT ASSEMBLER Work Phone: [facility] [place] Work Phone: Start: 07-31-2024 End: 07-31-2024 Orders Only Hayden Reilly MD Work Phone: [facility] Comment on above: History of pericardi tis (Primary Dx); Mild concentric left ventricular hypertrophy (LVH); 25 weeks gestation of Start: 07-27-2024 End: 07-27-2024 ambulatory NO PCP NO PCP [facility] Start: 07-11-2024 End: 07-11-2024 flow sheet Brain Chiango DO Work Phone: [facility] Comment on above: 22 weeks gestation o f ; Second trimester ; Nausea and vomiting during ; Diabetes mellitus screening Start: 06-28-2024 End: 06-28-2024 Patient encounter procedure Darwin Jones [employer]OPELLANT ASSEMBLER Work Phone: [facility] [place] Work Phone: Start: 06-28-2024 End: 06-28-2024 ambulatory Darwin Jones [employer]OPELLANT ASSEMBLER Work Phone: [facility] Work Phone: Start: 2024 End: 2024 Office consultation new/estab patient 60 min Hayden Reilly MD Work Phone: [facility] [place] Comment on above: 20 weeks gestation o f (Primary Dx); Tiffani's disease; 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; Hx of preeclampsia, prior , currently ; Elevated BP without diagnosis of hypertension; History of pericarditis; with history of section, antepartum; History of macrosomia in in prior , currently ; Obesity affecting , antepartum, unspecified obesity type; Depression affecting Start: 2024 End: 2024 ambulatory BRAIN Sultana [facility] Start: 06-22-2024 End: 06-22-2024 Patient encounter procedure Darwin Jones [employer]OPELLANT ASSEMBLER Work Phone: [facility] [place] Work Phone: Start: 06-22-2024 End: 06-22-2024 ambulatory Darwin Jones [employer]OPELLANT ASSEMBLER Work Phone: [facility] Work Phone: Start: 06-21-2024 End: 06-21-2024 Chart abstracting Hayden Reilly MD Work Phone: [facility] Start: 06-12-2024 End: 06-12-2024 Bamboo flowsheet [...] anatomic survey Start: 06-12-2024 End: 06-12-2024 ambulatory BRAINJonathan CHIANGO Not Available Start: 05-24-2024 End: 05-24-2024 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 Work Phone: Start: 05-11-2024 End: 05-11-2024 ambulatory SHIRLEY Jones Work Phone: [facility] Work Phone: Start: 05-11-2024 End: 05-11-2024 Encounter for general adult medical examination without abnormal findings SHIRLEY Jones Work Phone: [facility] Start: 05-11-2024 End: 05-11-2024 Patient encounter procedure SHIRLEY Jones Work Phone: [facility] Work Phone: Start: 05-10-2024 End: 05-10-2024 Bamboo [...] 9w2d Start: 04-07-2024 End: 04-07-2024 ambulatory MYA STEF Not Available Start: 04-06-2024 End: 04-06-2024 Departed Referred PROPELLANT ASSEMBLER Darwin Jones Work Phone: [facility] Start: 04-06-2024 End: 04-06-2024 ambulatory PROPELLANT ASSEMBLER Darwin Jones Work Phone: [facility] Work Phone: Start: 03-21-2024 End: 03-21-2024 ambulatory BRAIN SEAMUS Not Available Start: 03-18-2024 End: 03-18-2024 Emergency department patient visit [place] [facility] Start: 02-24-2024 End: 02-24-2024 Patient encounter procedure PROPELLANT ASSEMBLER Darwin Joneserwood Work Phone: [facility] [place] Work Phone: Start: 02-24-2024 End: 02-24-2024 ambulatory PROPELLANT ASSEMBLER Darwin Jaclyn Easterwood Work Phone: [facility] Work Phone: Start: 01-25-2024 End: 01-25-2024 ambulatory PROPELLANT ASSEMBLER Darwin Jaclyn Easterwood Work Phone: [facility] Work Phone: Start: 01-25-2024 End: 01-25-2024 Patient encounter procedure PROPELLANT ASSEMBLER Darwin Easterwood Work Phone: [facility] Work Phone: Start: 01-24-2024 End: 01-24-2024 Patient encounter procedure PROPELLANT ASSEMBLER Darwin Joneserwood Work Phone: [facility] [place] Work Phone: Start: 01-24-2024 End: 01-24-2024 ambulatory PROPELLANT ASSEMBLER Darwin Jaclyn Easterwood Work Phone: [facility] Work Phone: Start: 12-27-2023 End: 12-27-2023 Patient encounter procedure PROPELLANT ASSEMBLER Darwin Joneserwood Work Phone: [facility] [place] Work Phone: Start: 12-27-2023 End: 12-27-2023 ambulatory PROPELLANT ASSEMBLER Darwin Jaclyn Easterwood Work Phone: [facility] Work Phone: Start: 12-24-2023 End: 12-24-2023 ambulatory PROPELLANT ASSEMBLER Darwin J Easterwood Work Phone: [facility] Work Phone: Start: 12-24-2023 End: 12-24-2023 Patient encounter procedure SHIRLEY Orosco Yasir Work Phone: [facility] Work Phone: Start: 11-30-2023 End: 11-30-2023 Patient encounter procedure SHIRLEY Orosco Yasir Work Phone: [facility] [place] Work Phone: Start: 11-30-2023 End: 11-30-2023 ambulatory SHIRLEY Anaya Yasir Work Phone: 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); Class 2 obesity; Irregular menstruation, unspecified; Female infertility; Calculus of kidney Start: 11-01-2023 End: 11-01-2023 Patient encounter procedure SHIRLEY Jonestodd Work Phone: [facility] [place] Work Phone: Start: 11-01-2023 End: 11-01-2023 ambulatory SHIRLEY Jonestodd Work Phone: [facility] Work Phone: Start: 10-20-2023 End: 10-20-2023 Patient encounter procedure PROPELLANT ASSEMBLER Darwin Jones Work Phone: [facility] Work Phone: Start: 10-01-2023 End: 10-01-2023 ambulatory PROPELLANT ASSEMBLER Darwin Jones Work Phone: [facility] Work Phone: Start: 10-01-2023 End: 10-01-2023 Patient encounter procedure PROPELLANT ASSEMBLER Darwin Jones Work Phone: [facility] [place] Work Phone: Start: 09-29-2023 End: 09-29-2023 ambulatory Tyrone Rock Facility:[facility] Start: 09-29-2023 End: 09-29-2023 Patient encounter procedure Tyrone Rock [facility] Start: 09-21-2023 End: 09-21-2023 ambulatory Darwin Jones Other [employer] Other Start: 09-21-2023 Office outpatient vi sit 15 minutes Darwincary Larawood [facility] Start: 08-30-2023 Patient encounter procedure PROPELLANT ASSEMBLER Darwin Jones Work Phone: [facility]- Start: 08-25-2023 End: 08-25-2023 ambulatory Darwincary Joneserwood Other [employer] Other Start: 08-25-2023 Follow-up encounter Darwin Larawood [facility] Start: 08-25-2023 End: 08-25-2023 Patient encounter procedure PROPELLANT ASSEMBLER Darwin Jones Work Phone: [facility] Work Phone: Start: 07-23-2023 End: 07-23-2023 Patient encounter procedure PROPELLANT ASSEMBLER Darwin Larawood Work Phone: [facility] Work Phone: Start: 07-16-2023 Telephone encounter Ruby sneed MD Work Phone: Endocrinology Comment on above: Appointment Start: 06-23-2023 End: 06-23-2023 ambulatory Dariwn Roberterwood Other [employer] Other Start: 06-23-2023 Office outpatient vi sit 15 minutes Darwin Roberterwood [facility] Start: 06-08-2023 End: 06-08-2023 ambulatory FRANCY GAN Facility:[facility] Start: 06-08-2023 End: 06-08-2023 Patient encounter procedure Francy Gan PA-C Work Phone: Otolaryngology Comment on above: Dysphagia, unspecifi ed type (Primary Dx); LPRD (laryngopharyngeal reflux disease) Start: 05-26-2023 End: 05-26-2023 ambulatory Darwin Roberterwood Other [employer] Other Start: 05-26-2023 Office outpatient vi sit 25 minutes Darwin Roberterwood [facility] Start: 05-06-2023 End: 05-06-2023 ambulatory PROPELLANT ASSEMBLER Darwin Jonesermacy Work Phone: [facility] Work Phone: Start: 05-06-2023 End: 05-06-2023 Patient encounter procedure PROPELLANT ASSEMBLER Darwin Joneserwood Work Phone: [facility] [place] Work Phone: Start: 04-28-2023 End: 04-28-2023 ambulatory Darwin Easterwood Other [employer] Other Start: 04-28-2023 Office outpatient vi sit 40 minutes Darwin Jnoes [facility] Start: 04-16-2023 End: 04-16-2023 ambulatory Darwin Jones Other [employer] Other Start: 04-16-2023 Encounter for genera l adult medical examination without abnormal findings [facility] Start: 04-16-2023 Periodic preventive med est patient 18-39 yrs [facility] Start: 04-08-2023 End: 04-08-2023 ambulatory PROPELLANT ASSEMBLER Darwin Jones Work Phone: [facility] Work Phone: Start: 04-08-2023 End: 04-08-2023 Departed Referred SHIRLEY Jones Work Phone: [facility]-Employee Benefit Screening Start: 03-22-2023 End: 03-22-2023 Emergency department patient visit Gabriel Curtis [facility] Start: 03-22-2023 End: 03-22-2023 Emergency department patient visit SHIRLEY Jones Work Phone: [facility]Emergency Room Work Phone: Start: 02-28-2023 End: 02-28-2023 Departed Referred PROPELLANT ASSEMBLER Darwin Jones Work Phone: [facility]-Employee Benefit Screening Start: 02-28-2023 End: 02-28-2023 ambulatory PROPELLANT ASSEMBLER Darwin Jones Work Phone: [facility] Work Phone: Start: 02-28-2023 End: 02-28-2023 Patient encounter procedure PROPELLANT ASSEMBLER Darwin Jones Work Phone: [facility] [facility] [address] Work Phone: Start: 12-10-2022 End: 12-10-2022 ambulatory PROPELLANT ASSEMBLER Darwin Jones Work Phone: [facility] Work Phone: Start: 12-10-2022 End: 12-10-2022 Patient encounter procedure PROPELLANT ASSEMBLER Darwin Joneserwood Work Phone: [facility] [place] Work Phone: Start: 12-09-2022 End: 12-09-[address] NONE LISTED REQUEST Facility: Start: 12-08-2022 End: 12-08-2022 ambulatory Ofelia Hester Other [employer] Other Start: 12-08-2022 Encounter by ruben limon [facility] Start: 10-22-2022 End: 10-22-2022 ambulatory Lilly Ti Other [employer] Other Start: 10-22-2022 Telephone encounter Lilly Neymarsonia [facility] Start: 10-16-2022 End: 10-16-2022 ambulatory SHIRLEY Darwin Jaclyn Jones Work Phone: [facility] Work Phone: Start: 10-16-2022 End: 10-16-2022 Patient encounter procedure PROPELLANT ASSEMBLER Darwin Joneserwood Work Phone: [facility] [place] Work Phone: Start: 10-15-2022 End: 10-15-2022 ambulatory Ofelia Hester Other [employer] Other Start: 10-15-2022 Telephone encounter [facility] Start: 10-05-2022 Registered Recurring SHIRLEY Orosco Roberterwood Work Phone: [facility]-Weight Management Work Phone: Start: 10-05-2022 [facility] Weight Management f/u Ofelia [facility] Start: 10-05-2022 End: 10-05-2022 ambulatory Ofelia Hester Other [employer] Other Start: 09-28-2022 ambulatory Ruby Whittington MD Work Phone: Endocrinology Comment on above: Synthroid Start: 09-02-2022 [facility] f/u [facility] Start: 09-02-2022 End: 09-02-2022 ambulatory Ofelia Hester Other [employer] Other Start: 08-25-2022 ([facility] WMNI) WMN Init ial Provider Lilly Neymarsonia [facility] Start: 08-25-2022 End: 08-25-2022 ambulatory Lilly Luke Other [employer] Other Start: 07-31-2022 [facility] Weight Management f/u [facility] Start: 07-31-2022 End: 07-31-2022 ambulatory Ofelia Hester Other [employer] Other Start: 07-20-2022 End: 07-20-2022 ambulatory Lilly Luke Other [employer] Other Start: 07-20-2022 Telephone encounter Lilly Eubanks [facility] Start: 07-14-2022 End: 07-14-2022 Patient encounter procedure Ruby Whittington MD Work Phone: Endocrinology Comment on above: 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); Class 2 obesity Start: 07-08-2022 End: 07-08-2022 ambulatory Ofelia Hester Other [employer] Other Start: 07-08-2022 [facility] Start: 06-17-2022 ([facility]/U) Weight Management f/u [facility] Start: 06-17-2022 End: 06-17-2022 ambulatory Ofelia Hester Other [employer] Other Start: 06-04-2022 End: 06-04-2022 ambulatory Sima Ross Other [employer] Other Start: 06-04-2022 Office outpatient vi sit 15 minutes Sima Ross [facility] Start: 05-27-2022 End: 05-27-2022 ambulatory Lilly Blackmont Other [employer] Other Start: 05-27-2022 IBT FOR OBESITY GROU P 2-10 30M Lilly Neymarsonia [facility] Start: 05-25-2022 End: 05-25-2022 ambulatory Darwin Jones Other [employer] Other Start: 05-25-2022 Telephone encounter Geoffrey murphy MD Work Phone: Endocrinology Comment on above: Appointment (LVM for patient that appt on 05/[address] George has been rescheduled to 07/08 at [facility] with Dr. Robertson. sending mail reminder as well. ) Start: 05-19-2022 End: 05-19-2022 ambulatory Ofelia Hester Other [employer] Other Start: 05-19-2022 Telephone encounter Ofelia Hester [facility] Start: 05-18-2022 End: 05-18-2022 ambulatory Ofelia Hester Other [employer] Other Start: 05-18-2022 Nutrition therapy Ofelia Hester [facility] Start: 04-21-2022 End: 04-21-2022 ambulatory Darwin Easterwood Other [employer] Other Start: 04-21-2022 Telephone encounter Darwin Easterwood [facility] Start: 04-17-2022 End: 04-17-2022 ambulatory Darwin Easterwood Other [employer] Other Start: 04-17-2022 Office outpatient vi sit 25 minutes Darwin Easterwood [facility] Start: 04-15-2022 End: 04-15-2022 ambulatory Darwin Easterwood Other [employer] Other Start: 04-15-2022 Telephone encounter Darwin Easterwood [facility] Start: 04-14-2022 End: 04-14-2022 Patient encounter procedure PHYSICIAN [facility] Start: 04-10-2022 End: 04-10-2022 ambulatory Lilly Luke Other [employer] Other Start: 04-10-2022 Telephone encounter Lilly Luke [facility] Start: 04-06-2022 End: 04-06-2022 Patient encounter procedure PHYSICIAN NO [facility] Start: 02-24-2022 End: 02-24-2022 ambulatory Darwin Easterwood Other [employer] Other Start: 02-24-2022 Telephone encounter Darwin Easterwood [facility] Start: 02-18-2022 End: 02-18-2022 Emergency department patient visit Fazal Corrales [facility] Start: 02-18-2022 End: 02-18-2022 ambulatory Darwin Jones Other [employer] Other Start: 02-18-2022 Office outpatient vi sit 25 minutes Darwin Larawood [facility] Start: 02-18-2022 [facility] Start: 02-13-2022 End: 02-13-2022 Patient encounter procedure PHYSICIAN NO [facility] [place] Start: 02-11-2022 End: 02-11-2022 ambulatory Darwin Jones Other [employer] Other Start: 02-11-2022 Office outpatient ne w 45 minutes [facility] Start: 02-10-2022 End: 02-10-2022 Departed Referred PHYSICIAN NO [facility]-Employee Benefit Screening Start: 09-04-2021 Chart Update Unknown Unknown [facility] 250 DO Work Phone: Start: 09-03-2021 Office outpatient ne w 45 minutes Unknown Unknown [facility] 600 DO Work Phone: Procedures Date Procedure Procedure Detail Performing Clinician Start: 10-26-2024 Urnls dip stick/tabl et rgnt non-auto w/o micrscp Mya MCMILLAN Work Phone: Start: 10-26-2024 US OB BPP W NON-STRESS Brain Seamus DO Work Phone: Start: 10-18-2024 Urnls dip stick/tabl et rgnt [...] for malignant neoplasm of cervix Pap Smear [facility] Start: 03-23-2026 DTaP,Tdap and Td Vaccines (7 - Td or Tdap) DTaP,Tdap and Td Vaccines (7 - Td or Tdap) [facility] Start: 03-23-2026 Urine microalbumin profile [facility] Start: 2025 Tobacco Screening Tobacco Screening [facility] [place] Start: 10-26-2024 End: 10-26-2024 Patient encounter procedure 10/26/2024 11:10 AM EDT Routine [facility] [address] [facility] [address] Mya Finch, PA [address] [place] [address] [facility] Start: 10-26-2024 End: 10-26-2024 Patient encounter procedure 10/26/2024 8:50 AM EDT Routine [facility] [address] [facility] [place] [phone] Mya Finch, PA [address] [place] [address] [facility] Start: 10-18-2024 End: 10-18-2024 Patient encounter procedure 10/18/2024 9:50 AM EST Routine [facility] [address] [place] [phone] Mya Finch, PA [address] [place] [address] [facility] Start: 10-10-2024 End: 10-10-2025 [...] PM EST Routine [facility] [address] [place] [phone] Mya Finch PA [address] [place] [address] [facility] Start: 09-19-2024 End: 09-19-2024 Patient encounter procedure [facility] Comment on above: Arrived Start: 09-07-2024 End: 09-07-2024 Patient encounter procedure [facility] Comment on above: Arrived Start: 09-07-2024 End: 09-07-2025 US for US OB follow up transabdominal approach Imaging Routine size inconsistent with dates Expected: 09/07/2024, Expires: 09/07/2025 [facility] Work Phone: Comment on above: Expected: 09/07/2024, Expires: Start: 08-31-2024 End: 07-31-2025 Echo complete W/O contrast Echo complete W/O contrast Echocardiography Routine History of pericarditis Mild concentric left ventricular hypertrophy (LVH) 25 weeks gestation of Expected: 08/31/2024 (Approximate), Expires: 07/31/2025 [facility] Work Phone: Comment on above: Expected: 08/31/2024 (Approximate), Expi res: 07/31/2025 Start: 08-25-2024 [facility] Start: 08-23-2024 End: 08-23-2024 Patient encounter procedure 08/23/2024 11:00 AM EST Routine [facility] [address] [place] [address], [address] [place] [address] Arrived [facility] Comment on above: Arrived Start: 08-02-2024 End: 08-02-2024 Telemedicine consultation with patient 08/02/2024 9:00 AM EST Telemedicine [facility] [address] [place] [phone] Darcy Enriquez MD [address], [address] [place] [address] [facility] Start: 07-27-2024 End: 07-27-2024 Patient encounter procedure 07/27/2024 11:00 AM EST Appointment [facility] [address] [place] [phone] [facility] Start: 07-21-2024 End: 07-21-2024 Patient encounter procedure 07/21/2024 10:00 AM EST Appointment [facility] [address] [place] [address] [facility] Start: 07-11-2024 End: 07-11-2025 CBC panel - Blood by Automated count CBC Lab Routine 22 weeks gestation of Second trimester Expected: 07/11/2024 (Approximate), Expires: 07/11/2025 [facility] Work Phone: Comment on above: Expected: [...] AM EST Routine [facility] [address] [place] [address], DO [address] [place] [address] [facility] Start: 06-28-2024 [facility] Start: 2024 End: 2025 Echo complete W/O contrast Echo complete W/O contrast Echocardiography Routine 20 weeks gestation of History of pericarditis Expected: 2024, Expires: 2025 [facility] Work Phone: Comment on above: Expected: 2024, Expires: Start: 2024 End: 2024 Patient encounter procedure [facility] Start: 06-12-2024 End: 10-13-2024 Alpha fetoprotein, maternal Alpha fetoprotein, maternal Lab Routine Second trimester 18 weeks gestation of Expected: 06/12/2024 (Approximate), Expires: 10/13/2024 [facility] Comment on above: Expected: 06/12/2024 (Approximate), Expi res: 10/13/2024 Start: 06-12-2024 End: 06-12-2025 US for US OB ANATOMY SINGLE W US OB CERVICAL LENGTH Imaging Routine Screening, , for anatomic survey Expected: 06/12/2024 (Approximate), Expires: 06/12/2025 [facility] Work Phone: Comment on above: Expected: 06/12/2024 (Approximate), Expi res: 06/12/2025 Start: 06-12-2024 End: 06-12-2024 Patient encounter procedure 06/12/2024 10:00 AM EDT Routine [facility] [address] [place] [phone] [address], DO [address] [place] [place] [address] Arrived [facility] Comment on above: Arrived Start: 06-07-2024 End: 06-07-2024 Patient encounter procedure 06/07/2024 10:50 AM EDT Routine [facility] [address] [place] [phone] [address], DO [address] [place] [place] [address] [facility] Start: 05-10-2024 End: 05-10-2024 Patient encounter procedure [facility] Comment on above: Arrived Start: 04-20-2024 End: 04-20-2024 Patient encounter procedure [facility] Comment on above: Arrived Start: 04-16-2024 COVID-19 Vaccine ( season) COVID-19 Vaccine () [facility] [place] Start: 04-16-2024 Influenza vaccination [facility] Start: 04-07-2024 End: 04-07-2025 ABO/Rh ABO/Rh Lab Routine Missed menses Expected: 04/07/2024 (Approximate), Expires: 04/07/2025 [facility] Comment on above: Expected: 04/07/2024 (Approximate), Expi res: 04/07/2025 Start: 04-07-2024 End: 04-07-2025 Blood type and Indirect antibody screen panel - Blood Type and screen Lab Routine Missed menses Expected: 04/07/2024 (Approximate), Expires: 04/07/2025 [facility] Work Phone: Comment on above: Expected: 04/07/2024 (Approximate), Expi res: 04/07/2025 Start: 08-16-2023 Behavioral Health Screening [facility] Start: 05-06-2023 US scan of thyroid US [facility] Start: 04-16-2023 Covid-19 Vaccine (4 - 2023-24 season) Covid-19 Vaccine ( season) [facility] Start: 04-16-2023 Influenza vaccination Influenza Vaccine (#1) [facility] Start: 04-08-2023 [facility] Start: 08-16-2022 DEPRESSION ASSESSMENT DEPRESSION ASSESSMENT [facility] Start: 04-16-2022 Influenza vaccination INFLUENZA (#1) [facility] Start: 08-16-2021 DEPRESSION ASSESSMENT DEPRESSION ASSESSMENT [facility] Start: 01-10-2021 COVID-19 VACCINE (3 - Booster) COVID-19 VACCINE (3 - Booster) [facility] Start: 2017 PAP TESTING PAP TESTING [facility] Start: 2017 Screening for malignant neoplasm of cervix [facility] Start: 2015 DTaP,Tdap and Td Vaccines (1 - Tdap) DTaP,Tdap and Td Vaccines (1 - Tdap) [facility] Start: 2015 Urine microalbumin profile DTAP,TDAP,TD (1 - Tdap) [facility] Start: 2014 Adult BMI Screening Adult BMI Screening [facility] Start: 2014 ANNUAL PCP TEAM CHRONIC DISEASE VISIT ANNUAL PCP TEAM CHRONIC DISEASE VISIT [facility] Start: 2014 HEPATITIS C SCREENING HEPATITIS C SCREENING [facility] Start: 2014 Hepatitis C screening Hepatitis C Screening [facility] Start: 2014 HIV SCREENING HIV SCREENING [facility] Start: 2014 HIV screening HIV Screening [facility] Start: 2010 PEDS TO ADULT TRANSITION ANNUAL ASSESSMENT PEDS TO ADULT TRANSITION ANNUAL ASSESSMENT [facility] Start: 2008 Depression Screening Depression Screening [facility] Start: 2008 PEDS TO ADULT TRANSITION INITIAL DISCUSSION PEDS TO ADULT TRANSITION INITIAL DISCUSSION [facility] Start: 2008 Tobacco Screening Tobacco Screening [facility] Start: 2007 HPV VACCINE (1 - 2-dose series) HPV VACCINE (1 - 2-dose series) [facility] Start: 2005 HPV Vaccine (1 - 2-dose series) HPV Vaccine (1 - 2-dose series) [facility] Start: 1996 COVID-19 VACCINE (#1) COVID-19 VACCINE (#1) [facility] Start: 1996 HEPATITIS B (1 of 3 - 3-dose series) HEPATITIS B (1 of 3 - 3-dose series) [facility] Bacteria identified in Urine by Culture Urine culture Microbiology Routine Missed menses Ordered: 04/07/2024 [facility] Comment on above: Ordered: 04/07/2024 CBC W Auto Differential panel - Blood CBC and differential Lab Routine Missed menses Ordered: 04/07/2024 [facility] Comment on above: Ordered: 04/07/2024 CHLAMYDIA TRACHOMATI S (GENITO/STI) CHLAMYDIA TRACHOMATIS (GENITO/STI) Lab Routine First trimester Screen for STD (sexually transmitted disease) Vaginal discharge Ordered: 04/20/2024 [facility] Comment on above: Ordered: 04/20/2024 Cytology Cervical or vaginal smear or scraping study Pap Smear Pathology and Cytology Routine Well woman exam with routine gynecological exam Ordered: 04/20/2024 [facility] Work Phone: Comment on above: Ordered: 04/20/2024 Hemoglobin A1c/Hemoglobin.total in Blood Hemoglobin A1c Lab Routine Missed menses Ordered: 04/07/2024 [facility] Comment on above: Ordered: 04/07/2024 Hepatitis B virus surface Ag [Presence] in Serum or Plasma by Immunoassay Hepatitis B surface antigen Lab Routine Missed menses Ordered: 04/07/2024 [facility] Comment on above: Ordered: 04/07/2024 Hepatitis C virus Ab [Presence] in Serum or Plasma by Immunoassay Hepatitis C antibody Lab Routine Missed menses Ordered: 04/07/2024 [facility] Comment on above: Ordered: 04/07/2024 HIV-1/HIV-2 antigen/antibody combination immunoassay HIV-1 and HIV-2 antibodies Lab Routine Missed menses Ordered: 04/07/2024 [facility] Comment on above: Ordered: 04/07/2024 Neisseria gonorrhoea e DNA [Presence] in Unspecified specimen by LAUREN with probe detection Neisseria gonorrhea DNA probe, direct Lab Routine First trimester Screen for STD (sexually transmitted disease) Vaginal discharge Ordered: 04/20/2024 [facility] Comment on above: Ordered: 04/20/2024 Patient referral [facility] Work Phone: Progesterone [Mass/volume] in Serum or Plasma [facility] Progesterone [Mass/volume] in Serum or Plasma [facility] Progesterone [Mass/volume] in Serum or Plasma [facility] Progesterone [Mass/volume] in Serum or Plasma [facility] Progesterone [Mass/volume] in Serum or Plasma [facility] Reagin Ab [Presence] in Serum by RPR RPR Lab Routine Missed menses Ordered: 04/07/2024 [facility] Comment on above: Ordered: 04/07/2024 Rubella antibody, IgG Rubella an tibody, IgG Lab Routine Missed menses Ordered: 04/07/2024 [facility] Comment on above: Ordered: 04/07/2024 SURESWAB(R) ADVANCED VAGINITIS PLUS, TMA SURESWAB(R) ADVANCED VAGINITIS PLUS, TMA Pathology and Cytology Routine First trimester Screen for STD (sexually transmitted disease) Vaginal discharge Ordered: 04/20/2024 [facility] Comment on above: Ordered: 04/20/2024 Thyrotropin [Units/volume] in Serum or Plasma TSH Lab Routine Missed menses Ordered: 04/07/2024 [facility] Comment on above: Ordered: 04/07/2024 [facility] End: 07-07-2024 XR MODIFIED BARIUM SWALLOW W SPEECH THERAPY XR MODIFIED BARIUM SWALLOW W SPEECH THERAPY Radiology Routine Dysphagia, unspecified type 1 Occurrences starting 06/08/2023 until 07/07/2024 [facility] Work Phone: Comment on above: 1 Occurrences starting 06/08/2023 until 07/07/2024 [facility] Work Phone: [facility] Immunizations Immunization Date Immunization Notes Care Provider Fa cility 05-21-2023 influenza virus vaccine, unspecified formulation Tyrone Rock [facility] 05-21-2023 influenza, injectabl e, 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, 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 free [employer] Darwin Easterwood Work Phone: [facility] 05-21-2023 influenza, injectabl e, 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, contains 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 Darwin Eastwood Other [facility] Other 06-15-2022 influenza, injectabl e, 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, 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 free [employer] Darwin Easterwood Work Phone: [facility] 06-15-2022 influenza, injectabl e, 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, contains 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 Darwin Easterwood [facility] Work Phone: 06-15-2022 influenza virus vaccine, unspecified formulation Francy Gan PA-C Work Phone: [facility] 06-15-2021 influenza nasal, unspecified formulation Ruby Whittington MD Work Phone: [facility] Work Phone: 06-15-2021 influenza virus vaccine, unspecified formulation Tyrone Rock [facility] 06-15-2021 influenza, injectabl e, 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, 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 free [employer] Darwin Easterwood Work Phone: [facility] 06-15-2021 influenza, injectabl e, 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, contains 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 Darwin Easterwood Other [facility] Work Phone: 05-15-2021 influenza nasal, unspecified formulation Ruby Whittington MD Work Phone: [facility] Work Phone: 05-15-2021 influenza virus vaccine, unspecified formulation Tyrone Rock [facility] 05-15-2021 influenza, high dose seasonal, 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-free Unknown Unknown [facility] Work Phone: 11-15-2020 [employer] COVID-19 Vacc 30 MCG/0.3ML Intramuscular Suspension Unknown Unknown [facility] 11-12-2020 COVID-19 vaccine, unknown product (NON-US) Ruby Whittington MD Work Phone: [facility] Work Phone: 10-24-2020 Pfizer-BioNTech COVID-19 Vacc 30 MCG/0.3ML Intramuscular Suspension Unknown Unknown [facility] 03-23-2016 tetanus toxoid, reduced diphtheria toxoid, and acellular pertussis vaccine, adsorbed Unknown Unknown [facility] Work Phone: 03-23-2016 varicella virus vaccine Unknown Unknown [facility] Work Phone: 03-01-2002 diphtheria, tetanus toxoids and acellular pertussis vaccine, unspecified formulation Unknown Unknown [facility] Work Phone: 03-01-2002 DTaP, unspecified formulation Tyrone Rock [facility] 03-01-2002 measles, mumps and rubella virus vaccine Unknown Unknown [facility] Work Phone: 03-01-2002 poliovirus vaccine, inactivated Unknown Unknown [facility] Work Phone: 03-01-2002 poliovirus vaccine, unspecified formulation Tyrone Rock [facility] 04-20-2001 hepatitis B vaccine, pediatric or pediatric/adolescent dosage Unknown Unknown [facility] Work Phone: 01-03-1998 diphtheria, tetanus toxoids and acellular pertussis vaccine, unspecified formulation Unknown Unknown [facility] Work Phone: 01-03-1998 DTaP, unspecified formulation Tyrone Rock [facility] 09-18-1997 measles, mumps and rubella virus vaccine Unknown Unknown [facility] Work Phone: 09-18-1997 varicella virus vaccine Unknown Unknown [facility] Work Phone: 03-30-1997 hepatitis B vaccine, pediatric or pediatric/adolescent dosage Unknown Unknown [facility] Work Phone: 1996 diphtheria, tetanus toxoids and acellular pertussis vaccine, unspecified formulation Unknown Unknown [facility] Work Phone: 1996 DTaP, unspecified formulation Tyrone Rock [facility] 1996 trivalent poliovirus vaccine, live, oral Unknown Unknown [facility] Work Phone: 1996 diphtheria, tetanus toxoids and acellular pertussis vaccine, unspecified formulation Unknown Unknown [facility] Work Phone: 1996 DTaP, unspecified formulation Tyrone Rock [facility] 1996 haemophilus influenz ae type b vaccine, conjugate unspecified formulation Unknown [facility] Work Phone: 1996 Hib, unspecified formulation Tyrone [facility] 1996 trivalent poliovirus vaccine, live, oral Unknown Unknown [facility] Work Phone: 1996 diphtheria, tetanus toxoids and acellular pertussis vaccine, unspecified formulation Unknown [facility] Work Phone: 1996 DTaP, unspecified formulation Tyrone Rock [facility] 1996 diphtheria, tetanus toxoids and acellular pertussis vaccine, unspecified formulation Unknown [facility] Work Phone: 1996 DTaP, unspecified formulation Tyrone Rock [facility] 1996 haemophilus influenz ae type b vaccine, conjugate unspecified formulation Unknown [facility] Work Phone: 1996 Hib, unspecified formulation Tyrone Polancopsey [facility] 1996 measles, mumps and rubella virus vaccine Unknown Unknown [facility] Work Phone: 1996 varicella virus vaccine Unknown [facility] Work Phone: 1996 diphtheria, tetanus toxoids and acellular pertussis vaccine, unspecified formulation Unknown Unknown [facility] Work Phone: 1996 DTaP, unspecified formulation Tyrone Rock [facility] 1996 haemophilus influenz ae type b vaccine, conjugate unspecified formulation Unknown Unknown [facility] Work Phone: 1996 hepatitis B vaccine, pediatric or pediatric/adolescent dosage Unknown Unknown [facility] Work Phone: 1996 Hib, unspecified formulation Tyrone Rock [facility] 1996 trivalent poliovirus vaccine, live, oral Unknown Unknown [facility] Work Phone: 1996 hepatitis B vaccine, pediatric or pediatric/adolescent dosage Unknown Unknown [facility] Work Phone: Payers Date Payer Category Payer Self-pay [id number] 2023 Self-pay [id number] 2022 Private Health Insurance [id number] 2021 Unknown 2019 [employer] - PPO [id number] 1996 Unknown [id number] 2.16.84 0.1.159792.3.579.2.593 1996 Unknown [id number] 2.16.8 40.1.675601.3.579.2.727 1996 Unknown [id number] 2.16.8 40.1.098458.3.579.2. 1996 Unknown [id number] 2.16.8 40.1.868340.3.579.2. 1996 Unknown [id number] 2.16.840.1.624189.3.579.2.1285 1996 Unknown [id number] 2.16.840.1.249121.3.579.2.1285 1996 Unknown [id number] 2.16.840.1.164741.3.579.2.1285 1996 Unknown [id number] 2.16.840.1.493042.3.579.2.1285 1996 Unknown [id number] 2.16.8 40.1.007353.3.579.2. 1996 Unknown [id number] 2.16.8 40.1.234204.3.579.2. 1996 Unknown [id number] 2.16.8 40.1.798804.3.579.2. 1996 Unknown [id number] 2.16.8 40.1.876559.3.579.2. 1996 Unknown [id number] 2.16.8 40.1.783503.3.579.2. 1996 Unknown [id number] 2.16.8 40.1.248240.3.579.2. 1996 Unknown [id number] 2.16.8 40.1.907869.3.579.2. 1996 Unknown [id number] 2.16.8 40.1.214204.3.579.2. 1996 Unknown [id number] 2.16.8 40.1.613592.3.579.2. 1996 Unknown [id number] 2.16.8 40.1.564412.3.579.2. 1996 Unknown [id number] 2.16.84 0.1.473062.3.579.2.9 1996 Unknown [id number] 2.16.84 0.1.666251.3.579.2.1258 1996 Unknown [id number] 2.16.84 0.1.849020.3.579.2.1258 1996 Unknown [id number] 2.16.84 0.1.050720.3.579.2.1258 1996 Unknown [id number] 2.16.84 0.1.261593.3.579.2.1258 1996 Unknown [id number] 2.16.84 0.1.470587.3.579.2.1258 1996 Unknown [id number] 2.16.84 0.1.161617.3.579.2.1258 1996 Unknown [id number] 2.16.84 0.1.240638.3.579.2.1258 1996 Unknown [id number] 2.16.84 0.1.181857.3.579.2.1258 1996 Unknown [id number] 2.16.84 0.1.403118.3.579.2.1258 1996 Unknown [id number] 2.16.84 0.1.992972.3.579.2.1258 1996 Unknown [id number] 2.16.84 0.1.580545.3.579.2.1259 1959 Unknown [id number] Unknown [id number] Unknown [id number] Unknown [id number] 2.16.8 40.1.456877.3.579.2.531 Unknown [id number] 2.16.8 40.1.400270.3.579.2.531 Unknown [id number] 2.16.8 40.1.776574.3.579.2.531 Unknown [id number] 2.16.8 40.1.477310.3.579.2.531 Unknown [id number] 2.16.8 40.1.188626.3.579.2.531 Unknown [id number] 2.16.8 40.1.264121.3.579.2.531 Unknown [id number] 2.16.8 40.1.306552.3.579.2.531 Unknown [id number] 2.16.8 40.1.965423.3.579.2.531 Unknown [id number] 2.16.8 40.1.662011.3.579.2.531 Unknown [id number] 2.16.8 40.1.301454.3.579.2.531 Unknown [id number] 2.16.8 40.1.897163.3.579.2.531 Unknown [id number] 2.16.8 40.1.038691.3.579.2.531 Unknown [id number] 2.16.8 40.1.759309.3.579.2.531 Social History Date Type Detail Facility Start: 07-14-2022 End: 03-21-2024 No alcohol use No alcohol use [place] [address] DO Work Phone: Start: 12-29-2020 End: 08-04-2023 Tobacco smoking status PAIS Never smoked tobacco (finding) [facility] Start: 1995 Sex Assigned At Female [facility] Start: 07-14-2022 End: 03-21-2024 Sex Assigned At [facility] Other Tobacco smoking status Never [facility] Tobacco smoking status [facility] Tobacco smoking consumption unknown [facility] Start: 1996 Sex Assigned At Not on file [facility] Start: 04-17-2022 End: 07-14-2022 Exposure to SARS-CoV-2 (event) Not sure [facility] Start: 07-14-2022 End: 2024 Tobacco use and exposure Smokeless tobacco non-user [facility] Start: 07-14-2022 End: 10-26-2024 Alcohol intake Lifetime non-drinker (finding) [facility] Start: 07-13-2022 Gender identity Identifies as female gender (finding) [facility] Start: 02-16-2024 [facility] Start: 03-19-2015 End: 06-23-2024 Sex Female (finding) [facility] Tobacco [facility] Comment on above: Denies Tobacco smoking status No Smoking Status Entered [facility] NEGATED: Highlighted rowStart: KATHY History of tobacco use Passive smoker [facility] Medical Equipment Procedure Code Equipment Code Equipment Origin al Text Equipment Identifier Dates [place] [id number] X 5 MM Start: 05-18-2022 Goals Date Patient Goal Desired Activity /State Personal health goal Functional Status Date Assessment Result Facility 10-14-2024 Functional Status N/A [facility] 09-06-2024 Functional Status N/A [facility] 09-05-2024 Functional Status N/A [facility] 09-05-2024 Functional Status N/A [facility] 03-18-2024 Functional Status N/A [facility] 09-29-2023 Functional Status N/A [facility] 03-22-2023 Functional Status N/A [facility] 02-18-2022 Functional Status N/A [facility] Clinical Notes 01-14-2022 to 10-26-2024 HIPOLITO Shore - 10/26/2024 11:10 AM HIPOLITO Vasquez - 10/18/2024 9:50 AM Pavan Abreu LPN - 10/10/2024 10:50 AM HIPOLITO Robert - 10/05/2024 2:20 PM Pavan Abreu LPN - 09/19/2024 2:00 PM EST Note Date & Type Note Facility 10-26-2024 History of Presen t illness Narrative Reason [...] H/O calculus of kidney during Tiffani's disease ([facility]) 02/2022 History of Obesity (BMI 30-39.9) Pericarditis HISTORY PAST MEDICAL HISTORY SOCIAL HISTORY Past Medical History: Diagnosis Date Anxiety Blood type, Rh positive H/O calculus of kidney during Tiffani's disease ([facility]) 02/2022 History of Obesity (BMI 30-39.9) Pericarditis [...] reviewed. Vitals: Estimated body mass index is 41.88 kg/m as calculated from the following: Height as of 08/25/23: 5' 7 . Weight as of this encounter: 267 lb 6.4 oz. BP: 114/80 Patient's last menstrual period was 02/02/2024 (exact date). ASSESSMENT & PLAN ICD-10-CM 1. 38 weeks gestation of Z3A.38 POCT urinalysis dipstick manually resulted 2. Third trimester Z34.93 POCT urinalysis dipstick manually resulted Return OB: Patient presents today for a routine obstetrics appointment. Patient is currently 38w1d . Patient states she is doing well but has complaints of being tired due to current . Patient has verbalizes frequent movement. labor precautions was discussed/given and patient was instructed to perform kick counts three times a day. Orders Placed This Encounter Procedures POCT urinalysis dipstick manually resulted Follow Up: Patient is to return to office in 1 week for routine OB appointment. Documented by HIPOLITO Shore on behalf of: HIPOLITO Shore documented in this encounter [facility] 10-18-2024 History of Presen t illness Narrative [...] H/O calculus of kidney during Tiffani's disease ([facility]) 02/2022 History of Obesity (BMI 30-39.9) Pericarditis HISTORY PAST MEDICAL HISTORY SOCIAL HISTORY Past Medical History: Diagnosis Date Anxiety Blood type, Rh positive H/O calculus of kidney during Tiffani's disease ([facility]) 02/2022 History of Obesity (BMI 30-39.9) Pericarditis [...] nursing note reviewed. Exam conducted with a gas check pad maker present. Vitals: Estimated body mass index is [...] of: HIPOLITO Shore documented in this encounter [facility] 10-16-2024 Note Microbiology PROCEDURE: Strep Screen Culture [R1] SOURCE: Throat BODY SITE: COLLECTED DATE/TIME: 10/14/2024 09:25 EST RECEIVED DATE/TIME: 10/14/2024 13:15 EST START DATE/TIME: 10/14/2024 13:15 EST FREE TEXT SOURCE: Etta Merino Patty FINAL REPORTS Final Report [] Verified Date/Time: 10/16/2024 09:02 EST Streptococcus Group A screen negative Performing Locations R1: This test was performed at: [facility], [address] [place] [address], [id number], [facility] Comment on above: Performed By: #### [id number] #### [facility] [address] [place] [id number] 10-16-2024 Note Microbiology PROCEDURE: Strep Screen Culture [R1] SOURCE: Throat BODY SITE: COLLECTED DATE/TIME: 10/14/2024 09:25 EST RECEIVED DATE/TIME: 10/14/2024 13:15 EST START DATE/TIME: 10/14/2024 13:15 EST FREE TEXT SOURCE: Bella ENGRAVER LETTERING-C, Etta Blanco ENGRAVER LETTERING-C, Etta FINAL REPORTS Final Report [] Verified Date/Time: 10/16/2024 09:02 EST Streptococcus Group A screen negative Performing Locations R1: This test was performed at: [facility], [address] [place] [address], [id number] [place] [address], [facility] Comment on above: Performed By: #### [id number] #### [facility] [address] [place] [id number] 10-14-2024 Evaluation + Plan note Diagnostic Tests PendingStrep Screen Culture 10/14/24 [facility] 10-14-2024 Hospital Discharg e instructions Patient Education 10/14/2024 09:30:20 Pharyngitis, Jiwp-nl-Ixtx Pharyngitis Pharyngitis is a sore throat (pharynx). [...] Follow these instructions at home: Medicines Take bwfm-gqd-piqzfig and prescription medicines only as told by [...] water are not available, use hand director global strategic publisher sales. Do not touch your eyes, nose, or [...] provider. Document Revised: 10/29/2021 Document Reviewed: 10/29/2021 [email or web address] Patient Education 2023 [employer]. Follow Up Care 10/14/2024 08:59:06 With:DARWIN JONES CNP Address: [address] [place] [phone]- When: Unknown [facility] 10-14-2024 Note Patient Education [...] these instructions at home: Medicines ??? Take rhom-lxk-exgbhhf and prescription medicines only as told by [...] water are not available, use hand director global strategic publisher sales. ??? Do not touch your eyes, nose, [...] provider. Document Revised: 10/29/2021 Document Reviewed: 10/29/2021 [email or web address] Patient Education ? 2023 [employer]. [facility] 10-10-2024 History of Presen t illness Narrative [...] H/O calculus of kidney during Tiffani's disease ([facility]/HCC) 02/2022 History of Obesity (BMI 30-39.9) [...] nursing note reviewed. Exam conducted with a gas check pad maker present. Vitals: Estimated body mass index is [...] Brain Way DO documented in this encounter [facility] 10-05-2024 History of Presen t illness [...] H/O calculus of kidney during Tiffani's disease ([facility]) 02/2022 History of Obesity (BMI 30-39.9) Pericarditis HISTORY PAST MEDICAL HISTORY SOCIAL HISTORY Past Medical History: Diagnosis Date Anxiety Blood type, Rh positive H/O calculus of kidney during Tiffani's disease ([facility]) 02/2022 History of Obesity (BMI 30-39.9) Pericarditis [...] of: HIPOLITO Shore documented in this encounter [facility] 09-19-2024 History of Presen t illness [...] H/O calculus of kidney during Tiffani's disease ([facility]) 02/2022 History of Obesity (BMI 30-39.9) Pericarditis [...] nursing note reviewed. Exam conducted with a gas check pad maker present. Vitals: Estimated body mass index is [...] Brain Way DO documented in this encounter [facility] 09-07-2024 History of Presen t illness [...] Documented by HIPOLITO Shore on behalf of: IHPOLITO Shore documented in this encounter [facility] 09-07-2024 Note History and Physical HOSPITAL [...] scheduled. Rogelio Nath M.D. leeroy Dictated: 09/05/2024 [id number] Transcribed: 09/05/2024 [facility] Comment on above: Result Comment: Elec tronically Signed By: Pham GALLAGHER, Rogelio Robins\.br\Date and Time Signed: 09/07/24 08:38 EST 09-06-2024 Hospital Discharg e instructions Patient Education 09/06/2024 16:15:07 Concussion, Adult, Yglb-gy-Gqbu Concussion, Adult A concussion is a brain [...] if you are dizzy. General instructions Take tsqf-vjs-iqekyvk and prescription medicines only as told by your doctor. Avoid taking strong pain medicines (opioids) after a concussion. Do not drink alcohol until your doctor says you can. Watch your symptoms and tell other people to do the same. Other problems can occur after a concussion. Tell your lasting floorworker, teachers, school nurse, school counselor, coach cleaner, or market development trainer about your injury and symptoms. Tell [...] the National Suicide Prevention Lifeline at or 335. This is open 24 hours a day. Text the Crisis Text Line at 784892. This information is not intended to replace advice given to you by your health care provider. Make sure you discuss any questions you have with your health care provider. Document Revised: 12/25/2022 Document Reviewed: 12/25/2022 [email or web address] Patient Education 2023 [employer]. Follow Up Care 09/06/2024 13:58:27 With:[facility] Address: [address] [place] [phone] Business (1) When:09/09/2024 16:14:40 Comments:Call to schedule a follow-up appointment with your primary care provider. Use Zofran as needed for nausea/vomiting. Return to the ED with any new or worsening symptoms. [facility] 09-06-2024 Note ED Patient Education [...] you are dizzy. General instructions ??? Take eddr-lda-nkygyai and prescription medicines only as told by your doctor. ??? Avoid taking strong pain medicines (opioids) after a concussion. ??? Do not drink alcohol until your doctor says you can. ??? Watch your symptoms and tell other people to do the same. Other problems can occur after a concussion. ??? Tell your lasting floorworker, teachers, school nurse, school counselor, coach cleaner, or market development trainer about your injury and symptoms. Tell [...] You have any (more content not included)... [facility] 09-06-2024 Evaluation + Plan note Extrac hamilton [...] date 09/06/24 15:25:00 EST, 09/06/24 15:25:00 EST [facility] [id number] NoteDischarge Instructions Given Worsening The following Patient Education Materials have been given to the patient: ~~ EducationMaterialSelect [facility] Evaluation + Plan note Extracted from: Title:ED [...] Diagnostic Tests Pending * Urine Culture 09/05/24 [facility] 01-21-2025 Hospital Discharge instructions Patient Education 09/05/2024 04:35:45 Syncope, Adult, Zeqn-le-Yizw Syncope, Adult Syncope is when you pass [...] you until you feel better. Medicines Take naci-tbn-vzaboeq and prescription medicines only as told by [...] provider. Document Revised: 12/11/2021 Document Reviewed: 12/11/2021 [email or web address] Patient Education 2023 [employer]. 09/05/2024 04:35:45 Nausea and Vomiting, Adult, Sgbh-pn-Nkef Nausea and Vomiting, Adult Nausea is feeling [...] fruit juice). ?Low-calorie sports drinks. Eat bland, wasj-gz-glkkvn foods in small amounts as you are able, such as: ?Bananas. ?Applesauce. ?Rice. ?Low-fat (lean) meats. ?[place]. ?Crackers. Avoid drinking fluids that have a lot of sugar or caffeine in them. This includes energy drinks, sports drinks, and soda. Avoid alcohol. Avoid spicy or fatty foods. General instructions Take ksfe-yme-oggzsjb and prescription medicines only as told by your doctor. Drink enough fluid to keep your pee (urine) pale yellow. Wash your hands often with soap and water for at least 20 seconds. If you cannot use soap and water, use hand director global strategic publisher sales. Make sure that everyone in your home [...] your doctor about eating and drinking. Take khts-duj-vyjtkwk and prescription medicines only as told by your doctor. Contact your doctor if your symptoms get worse or you have new symptoms. Keep all follow-up visits. This information is not intended to replace advice given to you by your health care provider. Make sure you discuss any questions you have with your health care provider. Document Revised: 02/06/2022 Document Reviewed: 02/06/2022 [email or web address] Patient Education 2023 [employer]. 09/05/2024 04:35:45 Diarrhea, Adult, Wmat-vm-Ovil Diarrhea, Adult Diarrhea is when you pass [...] regular sports drinks. ?Avoid alcohol. Eat bland, hjji-vt-nnxzny foods in small amounts as you are able. These foods include: ?Bananas. ?Applesauce. ?Rice. ?Low-fat (lean) meats. ?[place]. ?Crackers. Avoid spicy or fatty foods. Medicines Take gzup-oyd-amhcliz and prescription medicines only as told by your doctor. If you were prescribed antibiotics, take them as told by your doctor. Do not stop taking them even if you start to feel better. General instructions Wash your hands often using soap and water for 20 seconds. If soap and water are not available, usehand director global strategic publisher sales. Others in your home should wash their [...] provider. Document Revised: 01/19/2023 Document Reviewed: 01/19/2023 [email or web address] Patient Education 2023 [employer]. 09/05/2024 04:35:45 Dehydration, Adult, Sysl-df-Ycbb Dehydration, Adult Dehydration is a condition in [...] or sea (high in altitude). The thinner, drier tender naphthalene air causes more fluid loss. Doing exercises [...] of fat or sugar. General instructions Take lvck-scb-lermtqh and prescription medicines only as told by [...] provider. Document Revised: 03/01/2023 Document Reviewed: 03/01/2023 [email or web address] Patient Education 2023 [employer]. Follow Up Care 09/05/2024 03:04:39 With:Brain WAY Address: [facility] [address] [place] [address]- Business (1) When:09/07/2024 Comments:Call 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counselor supervisor prescriptions at [facility] With:[facility] Address: [address] [place] [address] [phone] Business (1) When:09/08/2024 Comments:Please follow-up with Dr. Way for further evaluation management. Please return to the ED for any new or worsening symptoms. [facility] [phone] NoteProgress Note-Nurse @[phone] OB RN arrived in patient room in [...] about admission for further evaluation on OB unit.[facility]01-21-2025 NoteED Patient Education Note Gastroenterology Nausea and [...] ? Low-calorie sports drinks. ??? Eat bland, kruu-eu-qzxdgw foods in small amounts as you are able, such as: ? Bananas. ? Applesauce. ? Rice. ? Low-fat (lean) meats. ? [place]. ? Crackers. ??? Avoid drinking fluids that have a lot of sugar or caffeine in them. This includes energy drinks, sports drinks, and soda. ??? Avoid alcohol. ??? Avoid spicy or fatty foods. General instructions ??? Take odwy-mnf-jtotgti and prescription medicines only as told by your doctor. ??? Drink enough fluid to keep your pee (urine) pale yellow. ??? Wash your hands often with soap and water for at least 20 seconds. If you cannot use soap and water, use hand director global strategic publisher sales. ??? Make sure that everyone in your [...] doctor about eating and drinking. ??? Take lkyp-lhd-sbazbwr and prescription medicines only as told by your doctor. ??? Contact your doctor if your symptoms get worse or you have new symptoms. ??? Keep all follow-up visits. This information is not intended to replace advice given to you by your health care provider. Make sure you discuss any questions you have with your health care provider. Document Revised: 02/06/2022 Document Reviewed: 02/06/2022 [email or web address] Patient Education ? 2023 [email or web address] Infectious Disease Diarrhea, Adult Diarrhea is [...] Take an ORS (ora (more content not included)...[facility] 08-25-2024 Evaluation note* Diagnosis Onset Date Resolution Status Admit Date Class 2 obesity with body ma ss index (BMI) of 37.0 to 37.9 in adult acute August 25 11:56am Tiffani's disease acute Jan2024 11:56am Hypothyroidism acute August 252024 11:56am Mild left ventricular hypertrophy acute August 25 11:56am Second trimester acute August 25, 2024 11:56am [facility] Work Phone: 1(622) 341-211101-08-2025 History of Present illness Narrative* Aleisha Abreu, [...] H/O calculus of kidney during Tiffani's disease ([facility]) 02/2022 History of Obesity (BMI 30-39.9) Pericarditis HISTORY PAST MEDICAL HISTORY SOCIAL HISTORY Past Medical History: Diagnosis Date Anxiety Blood type, Rh positive H/O calculus of kidney during Tiffani's disease ([facility]/HCC) 02/2022 History of Obesity (BMI 30-39.9) [...] nursing note reviewed. Exam conducted with a gas check pad maker present. Vitals: Estimated body mass index is [...] of: Brain Way DO documented in this encounterSelect Specialty [id number] History of Present illness Narrative* Aleisha Abreu [...] H/O calculus of kidney during Tiffani's disease ([facility]) 02/2022 History of Obesity (BMI 30-39.9) Pericarditis HISTORY PAST MEDICAL HISTORY SOCIAL HISTORY Past Medical History: Diagnosis Date Anxiety Blood type, Rh positive H/O calculus of kidney during Tiffani's disease ([facility]) 02/2022 History of Obesity (BMI 30-39.9) Pericarditis Social History Tobacco Use Smoking status: Never Smokeless tobacco: Not on file Substance Use Topics Alcohol use: Never Drug use: Not on file FAMILY HISTORY Family History Problem Relation Name Age of Onset Hypertension Father SURGICAL HISTORY Past Surgical History: Procedure Laterality Date SECTION, LOW TRANSVERSE 20192020 CYSTOSCOPY REVIEW OF SYSTEMS Review of Systems: [...] nursing note reviewed. Exam conducted with a gas check pad maker present. Vitals: Estimated body mass index is [...] of: Brain Way DO documented in this encounterSelect Specialty [id number] History of Present illness Narrative* Laura Herron [...] male Have you been seen here at [facility] in a previous ? No Recent ER visits or hospitalizations? no Bring blood sugar log or meter with you today? (Please bring them with you for every visit at [facility]) n/a Flu vaccine (Jun-October)? Yes Any [...] effusion. Also she was then evaluated by reimbursement manager who told her that she had pericarditis and that resolved with a taking Motrin however she did not had an echocardiogram. Saw Dr. Coronado. 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 Yes NotIn System Ref Prov gk526-zbrr-gxkpo acid ( 19) 29 mg iron- 1 [...] would recommend she establishes care with a human resources hr generalist for it to be further evaluated 7. [...] Please refer her locally to see a human resources hr generalist for the incidental finding on the CT [...] Hayden Reilly MD, FACOG (she/hers) M[facility]- [facility] [address] [facility] [address] [place] [address] This document was created with [employer] technology. Though I make every effort to review the dictation as it is transcribed, on occasion the spoken word can be misinterpreted by the technology leading to inappropriate words, phrases, or sentences. This note is addressed to the requesting provider as a consultation for clinical guidance. Specificmedical abbreviations are occasionally used and those are generally approved by the [place]?Board of?Obstetrics and?Gynecology?as well as?Lauryn s abbreviations. The above plan of care was based solely on the diagnoses for which a consultation was requested. ?More frequent testing may be indicated based on her other medical/obstetrical conditions. The management of other or medical conditions is beyond the scope of requested consultation and will c ontinue to be followed by the primary practice physician or primary care provider. Note to patient: [...] of the practitioner. documented in this encounterMercy Memorial HospitalCueSongs [id number] Radiology Diagnostic study [facility] [place] [address] Ultrasound Report Signed Patient: Tawnya Herring MR#: [id number] : 1995 Acct:[id number] Age/Sex: 28 / F ADM Date: 4 Loc: Room: Type: [facility] Attending Dr: Brain Way DO Ordering [...] Norton Jr., D.O.06/22/2024 4:00 PM Dictation Location: [place] [address] Tech: Rae De Paz Transcribed By: AGUILAR 06/22/24 1600 Dictated By: Zay Norton Jr, DO 06/22/24 1552 Signed By: 06/22/24 1600 [facility]10-28-2024 History of Present illness Narrative [...] H/O calculus of kidney during Tiffani's disease ([facility]) 02/2022 History of Obesity (BMI 30-39.9) Pericarditis HISTORY PAST MEDICAL HISTORY SOCIAL HISTORY Past Medical History: Diagnosis Date Anxiety Blood type, Rh positive H/O calculus of kidney during Tiffani's disease ([facility]) 02/2022 History of Obesity (BMI 30-39.9) Pericarditis [...] of: Brain Way DO documented in this encounterSelect Specialty [id number] Evaluation note* Diagnosis Onset Date Resolution Status Admit Date Well adult exam noneactive May 11, 2024 10:46am [facility] Work Phone: 1(917) 236-636209-25-2024 History of Present illness Narrative* Aleisha Abreu [...] H/O calculus of kidney during Tiffani's disease ([facility]) 02/2022 History of Obesity (BMI 30-39.9) Pericarditis HISTORY PAST MEDICAL HISTORY SOCIAL HISTORY Past Medical History: Diagnosis Date Anxiety Blood type, Rh positive H/O calculus of kidney during Tiffani's disease ([facility]) 02/2022 History of Obesity (BMI 30-39.9) Pericarditis [...] nursing note reviewed. Exam conducted with a gas check pad maker present. Vitals: Estimated body mass index is [...] of: Brain Way DO documented in this encounterSelect Specialty [id number] History of Present illness Narrative* Coral Rg [...] H/O calculus of kidney during Tiffani's disease ([facility]) 02/2022 History of Obesity (BMI 30-39.9) Pericarditis HISTORY PAST MEDICAL HISTORY SOCIAL HISTORY Past Medical History: Diagnosis Date Anxiety Blood type, Rh positive H/O calculus of kidney during Tiffani's disease ([facility]) 02/2022 History of Obesity (BMI 30-39.9) Pericarditis [...] nursing note reviewed. Exam conducted with a gas check pad maker present. Vitals: Estimated body mass index is [...] obtained without difficulty and patient was given [facility] order to have obtained. Patient advised to take ASA 81mg. Orders Placed This Encounter Procedures CHLAMYDIA TRACHOMATIS (GENITO/STI) Neisseria gonorrhea DNA probe, direct POCT urinalysis dipstick manually resulted Follow Up: Patient is to return to our office in 4 weeks for routine OB appointment Documented by Coral Rg LPN on behalf of: Brain Way DO documented in this encounterSelect Specialty [id number] History of Present illness Narrative* Thelma Elizabeth [...] H/O calculus of kidney during Tiffani's disease ([facility]) 02/2022 History of Obesity (BMI 30-39.9) Pericarditis [...] by: Thelma Elizabeth LPN documented in this encounterSelect Specialty [id number] Hospital Discharge instructions Patient Education 03/18/2024 12:15:03 [...] provider. Document Revised: 01/31/2021 Document Reviewed: 01/31/2021 [email or web address] Patient Education 2022 [employer]. 03/18/2024 12:15:03 Subchorionic Hematoma Subchorionic Hematoma A [...] provider. Document Revised: 04/28/2021 Document Reviewed: 04/28/2021 [email or web address] Patient Education 2022 [employer]. Follow Up Care 03/18/2024 08:08:01 With:Rogelio Nath Address: [address] [place], [place] [address], [address] [address] Business (1) When:03/21/2024 11:54:39 [facility] Address: [facility] RUBIN Taj [facility] [place] [address] [phone] Business (1) When:Within 3 Day(s) [facility] 08-03-2024 NoteED Patient Education Note [...] provider. Document Revised: 01/31/2021 Document Reviewed: 01/31/2021 ElseNXVISION Patient Education ? 2022 [employer]. Subchorionic Hematoma A hematoma is a collection of blood outside of the blood vessels. A subchorionic hematoma is a collection of blood between the outer wall of the embryo (chorion) and the inner wall of the uterus. This condi (more content not included)...[facility]04-04-2024 NoteHNO ID: [id number] Author: RUBY WHITTINGTON MD Service: ? Author [...] RTN 1 year. Ruby Whittington MD Endocrinology StaffOhiohealth [facility]04-04-2024 History of Present illness Narrative* Ruby [...] Whittington MD Endocrinology Staff [facility]City [facility] Instructions* Patient Instructions* Odalis Greene - 11/18/2023 7:58 AM EDT [facility] Department of Endocrinology, Diabetes and Metabolism. Did you know that you need to call 48 hours in advance of your scheduled visit, if you are unable to make your appointment? The Endocrinology and Metabolism [place] thanks you for your commitment, because patients not showing to their appointment results in a lost opportunity for patients to receive [facility] at the [facility]. To Cancel an appointment, please choose one of the following: - Call the Appointment Call Center at [phone] - From [place], Go to Appointments - Cancel Appts If cancelling, consider your need to reschedule to prevent further delays in your care. To Schedule an appointment, please choose one of the following: - Call the Appointment Call Center at [phone] - From [place], Go to Appointments - Request an Appt documented in this encounterCity Hospital02-14-2024 Hospital Discharge instructions Patient Education 09/29/2023 [...] numbers. This can be done either in [place] ([place] or metric measurements. Note that charts and online BMI calculators are available to help you find your BMI quickly and easily without having to do these calculations yourself. To calculate your BMI in [place] ([place] measurements: 1.Measure your weight in pounds [...] Centers for Disease Control and Prevention: www.cdc.gov [place] Heart Association: www.heart.org National Heart, Lung, and Blood [place]: www.nhlbi.nih.gov Summary Body mass index (BMI) is a number that is calculated from a person's weight and height. BMI may help estimate how much of a person's weight is composed of fat. BMI can help identify thosewho may be at higher risk for certain medical problems. BMI can be measured using Bhutanese measurements or metric measurements. BMI charts are used to identify whether you are underweight, normal weight, overweight, or obese. This information is not intended to replace advice given to you by your health care provider. Make sure you discuss any questions you have with your health care provider. Document Revised: 04/24/2020 Document Reviewed: 03/01/2020 [email or web address] Patient Education 2022 [employer]. 09/29/2023 11:04:59 Sinus Infection, Adult Sinus Infection, [...] saline washes). ?Medicines that treat allergies (antihistamines). ?Ywws-iyb-ryaqrdu pain relievers. If caused by bacteria, your [...] at home: Medicines Take, use, or apply xwux-nzz-zzctnyd and prescription medicines only as told by [...] water are not available, use hand director global strategic publisher sales. Do not smoke. Avoid being around people [...] provider. Document Revised: 07/07/2022 Document Reviewed: 07/07/2022 ElseNXVISION Patient Education 2022 [employer]. Follow Up Care 09/29/2023 09:12:00 With:DARWIN JONES CNP Address: [address] [place] [address]- When: Unknown [facility] 02-06-2024 Evaluation note* Encounter [...] BMI is required on scripts in the [facility]. Sep, Other *Progress note was completed with the assistance of voice recognition software for dictation purposes. Please excuse any grammatical errors that were not corrected during review process. [employer] Other 01-10-2024 Evaluation note* Encounter Date Diagnosis [...] that were not corrected during review process. [employer] Other 12-01-2023 Miscellaneous Notes* Telephone Encounter - Kenan Gomez - 07/16/2023 9:39 AM EST LVM to let patient know their appt has been rescheduled with Dr. Whittington. documented in this encounterCity Hospital11-08-2023 Evaluation note* Encounter Date Diagnosis Assessment [...] comfortable prescribing this medication at this time. [employer] Other 10-24-2023 NoteHNO ID: [id number] Author: Francy Gan PA-C Service: ? Author Type: Physician Acid Dumper Type: Progress Notes Filed: 06/08/2023 2:53 PM [...] will be in touch with results via SmartCrowdzhart HPI: Tawnya is a 27 year old [...] testing/treatment Medical Decision Making Level: 3 - [facility] History of Present illness Narrative* Francy [...] will be in touch with results via SmartCrowdzhart HPI: Tawnya is a 27 year old [...] Level: 3 - Low documented in this encounterCity Hospital10-24-2023 Instructions* Patient Instructions* Francy Gan PA-C - 06/08/2023 2:16 PM EDT Continue the omeprazole for another 1.5 months documented in this encounterCity Hospital10-11-2023 Evaluation note* Encounter Date Diagnosis Assessment [...] that were not corrected during review process. [employer] Other 09-13-2023 Evaluation note* Encounter Date Diagnosis [...] Discussed short term 8 week course vs. moth exterminator management. Discussed pros and cons of [...] that were not corrected during review process. [employer] Other 09-01-2023 Evaluation note* Encounter Date Diagnosis [...] patient is sent home pleased, without concerns. DOMINICAR FROM A COMPELTED IN OFFICE TODAY, SCANNED INTO PATIENT CHART AND FAXED TO [employer]. Apr, Other We did briefly discussed the [...] that were not corrected during review process. [employer] Other 08-08-2023 Hospital Discharge instructions Patient Education 03/22/2023 22:52:44 Urinary Tract Infection, Adult, Saut-ge-Glil Urinary Tract Infection, Adult A urinary tract [...] Follow these instructions at home: Medicines Take kawu-efm-qpdpkdv and prescription medicines only as told by [...] provider. Document Revised: 03/14/2021 Document Reviewed: 03/14/2021 [email or web address] Patient Education 2022 [employer]. Follow Up Care 03/22/2023 19:54:03 [facility] Address: [address] [place] [phone] Business (1) When:03/25/2023 Comments:Follow-up with your primary care provider in 3 to 5 days. If symptoms worsen, do not improve, or new symptoms arise please report back to emergency department for further evaluation. [facility]08-07-2023 Evaluation + Plan note Diagnostic Tests Pending * Urine Culture 03/22/23 [facility]03-02-2023 Evaluation note* Encounter Date Diagnosis Assessment Notes Treatment Notes Treatment Clinical Notes Oct, Nausea & vomiting (ICD-10 - R11.2) [employer] Other 02-20-2023 Evaluation note* Encounter Date Diagnosis [...] Encounter for weight management (ICD-10 - Z76.89) [employer] Other 02-13-2023 Miscellaneous Notes* Addendum Note - [...] daily. Ruby Whittington MD documented in this encounterCity Hospital01-18-2023 Evaluation note* Encounter Date Diagnosis Assessment [...] Encounter for weight management (ICD-10 - Z76.89) [employer] Other 01-10-2023 Evaluation note* Encounter Date Diagnosis [...] as inspiration Patient set the following goals: [employer] Other 12-16-2022 Evaluation note* Encounter Date Diagnosis [...] E06.3) She was recently seen by an forging machine hand at [facility] for elevated TSH. She is currently on adequate supplementation and will follow up with them. Jul, Daytime sleepiness (ICD-10 - R40.0) Continue to work on good sleep hygiene and control factors that she can.This could also improve with additional water intake. Jul, Mild depression (ICD-10 - F32.9) Jul, Encounter for weight management (ICD-10 - Z76.89) [employer] Other 11-29-2022 History of Present illness Narrative* [...] MD Endocrinology Staff CC: Darwin Jones APRN, SOIL FERTILITY EXTENSION SPECIALIST. [address] [facility] [address] [place] [address] documented in this encounterCity Hospital11-29-2022 Instructions* Patient Instructions* Soo Begum Ma - 07/14/2022 8:46 AM EST [facility]inology, Diabetes and Metabolism. Did you know that you need to call 48 hours in advance of your scheduled visit, if you are unable to make your appointment? The Endocrinology and Metabolism [place] thanks you for your commitment, because patients not showing to their appointment results in a lost opportunity for patients to receive [facility] at the [facility]. To Cancel an appointment, please choose one of the following: - Call the Appointment Call Center at [phone] - From [place], Go to Appointments - Cancel Appts If cancelling, consider your need to reschedule to prevent further delays in your care. To Schedule an appointment, please choose one of the following: - Call the Appointment Call Center at [phone] - From [place], Go to Appointments - Request an Appt documented in this encounterCity Hospital11-02-2022 Evaluation note* Encounter Date Diagnosis Assessment [...] and titrate her up slowly until [facility] insurance kicks in in August. [...] will discuss at later date if needed. [employer] Other 10-20-2022 Evaluation note* Encounter Date Diagnosis [...] Pt understood and agreed to tx plan. [employer] Other 10-12-2022 Evaluation note* Encounter Date Diagnosis [...] patient set personal goal using given handout. [employer] Other 10-10-2022 Miscellaneous Notes* Telephone Encounter - Linn Hancock - 05/25/2022 2:35 PM EDT LVM for patient that appt on 05/[address] George has been rescheduled to 07/08 at [facility] with Dr. Robertson. sending mail reminder as well. 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 Her Mallampati is not [...] of a comprehensive approach to obesity management [employer] Other 09-02-2022 Evaluation note* Encounter Date Diagnosis [...] start the weight management program at [facility] in the coming months.Nothing further [...] that were not corrected during review process. [employer] Other 07-07-2022 Hospital Discharge instructions Patient Education [...] Follow these instructions at home: Medicines Take lfxl-kbv-duwulcv and prescription medicines only as told by [...] 04/27/2002 Document Revised: 08/05/2018 Document Reviewed: 05/14/2017 [email or web address] Patient Education 2020 [employer]. 02/18/2022 22:49:49 Migraine Headache Migraine Headache A [...] Follow these instructions at home: Medicines Take qknu-krc-ullxwrl and prescription medicines only as told by your health care provider. Ask your health care provider if the medicine prescribed to you: ?Requires you to avoid driving or using heavy machinery. ?Can cause constipation. You may need to take these actions to prevent or treat constipation: ?Drink enough fluid to keep your urine pale yellow. ?Take shvn-cqs-naktjpe or prescription medicines. ?Eat foods that are [...] 08/02/2006 Document Revised: 11/24/2019 Document Reviewed: 09/14/2019 [email or web address] Patient Education 2020 [email or web address] Follow Up Care 02/18/2022 20:32:17 With:DARWIN JONES Address: [address] [place] [phone] Business (1) When:Within 3 Day(s) [facility]07-06-2022 Evaluation + Plan noteExtracted from: [...] voices understanding and is agreeable to plan. [facility]07-06-2022 Evaluation note* Encounter Date Diagnosis [...] remind her of lab draw at [facility]. Feb, Thyromegaly (ICD-10 - E01.0) [...] that were not corrected during review process. [employer] Other 07-01-2022 History general Narrative - Reported* Type Description Date Medical History Anxiety Medical History pericardi tis- Resolved cardiology signed off Medical History Kidney stones during Medical History Tiffani's disease February 2022 Medical History Abnormal thyroid ult rasound February 2022 work-up pending by ENT Surgical History 2019 Surgical History Cystoscopy 05/2021 Surgical History 2020 Hospitalization History See surgical hx [employer] Other 07-01-2022 History general Narrative - Reported* Type Description Date Medical History Anxiety Medical History pericardi tis- Resolved cardiology signed off Medical History Kidney stones during Medical History Tiffani's disease February 2022 Medical History Abnormal thyroid ult rasound February 2022 work-up pending by ENT Medical History Parathyroid adenoma Surgical History 2019 Surgical History Cystoscopy 05/2021 Surgical History 2020 Hospitalization History See surgical hx [employer] Other 06-29-2022 Evaluation note* Encounter Date Diagnosis [...] that were not corrected during review process. 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 [facility] Diagnosis 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 [facility]* Diagnosis Dysphagia, unspecified type- Primary LPRD (laryngopharyngeal reflux disease) Other diseases of larynx documented in this encounter [facility]* Diagnosis Onset Date Resolution Status Obesity acute [facility] Work Phone: Evaluation note* Diagnosis 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 Irregular menstruation, unspecified Female infertility Female infertility of unspecified origin Calculus of kidney documented in this encounter [facility]* Diagnosis Onset Date Resolution Status Obesity acute Class 2 obesity with body ma ss index (BMI) of 37.0 to 37.9 in adult acute [facility] Work Phone: evaluation note* Diagnosis Onset Date Resolution Status Obesity acute Class 2 obesity with body ma ss index (BMI) of 37.0 to 37.9 in adult acute Class 2 obesity with body ma ss index (BMI) of 37.0 to 37.9 in adult acute [facility] Work Phone: evaluation note* Diagnosis Onset Date Resolution Status Class 2 obesity with body ma ss index (BMI) of 37.0 to 37.9 in adult acute Class 2 obesity with body ma ss index (BMI) of 37.0 to 37.9 in adult acute [facility] Work Phone: evaluation note* Diagnosis Onset Date Resolution Status Class 2 obesity with body ma ss index (BMI) of 37.0 to 37.9 in adult acute [facility] Work Phone: evaluation note* Diagnosis Onset Date Resolution Status Well adult exam noneactive [facility] Work Phone: evaluation note* Diagnosis [...] type Depression affecting documented [facility] this encounter [facility]* Diagnosis History of pericarditis- Primary Mild concentric left ventricular hypertrophy (LVH) 25 weeks gestation of [facility]* Diagnosis 35 weeks gestation of Third trimester state, incidental [facility] Diagnosis Third trimester state, incidental 36 weeks gestation of Excessive growth affecting management of , antepartum, single or unspecified fetus [facility] Diagnosis 37 weeks gestation of Third trimester state, incidental Anxiety, generalized (CMS/HCC) [facility]* Diagnosis 38 weeks gestation of Third trimester state, incidental [...] History 2020 Hospitalization History See surgical hx [employer] Other History general Narrative - Reported* Type [...] Surgical History 2020 Hospitalization History See surgical [employer] Other History general Narrative - Reported* Type [...] History 2020 Hospitalization History See surgical hx [employer] Other History of Present illness Narrative* Patient [...] no other testing or intervention appears necessary. [facility] [address] DO Work Phone: Hospital course Narrative No data available for this section [facility] No data available for this section [facility] InstructionsNot on filedocumented in this encounter [facility]* Attachments The following attachments cannot be sent through Care Everywhere. * Preeclampsia (Bhutanese) documented in this encounterProC[facility] SystemInstructionsNot on file documented in this encounterProC[facility] SystemProgress note No data available for this section [facility] HospitalReason for [facility] (narrative)* Reason Dr. 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) Referral Organization [facility] [employer] Save Referring Provider First Name Darwin Referring Provider Last Name [facility] Referring Provider Specialty Nurse Pract itioner Referred Provider Specialty Endocrinolog y Referral Priority Routine [employer] Other Reason for referral (narrative)* Diagnostic Procedure Only (Routine) - Pending Review Specialty Diagnoses / Procedures Referred By Clint scott Referred To Contact XR IMAGING Diagnoses Dysphagia, unspecified type Procedures XR MODIFIED BARIUM SWALLOW W SPEECH THERAPY RADIOLOGIC EXAM SWALLOW FUNCTION CONTRAST STUDY Francy Gan PA-C [address] [place] [address] Xr Imaging [place] [id number] Referral ID Status Reason Start Date Expiration Date Visits Requested Visits Authorized [id number] Pending Review Auto-Generat ed Referral 3 07/07/2024 1 1 [facility] Chief Complaint TAWNYA HERRING is being [...] Dysphagia, unspecifi ed type (R13.10) Referral Organization [facility] Referring Provider First Name Darwin Referring Provider Last Name [facility] Referring Provider Specialty Nurse Pract itioner Referred [facility] Referred Address [address] [place] [address] [place], [place],[address] Referred Provider Specialty Ear, Nose an d Throat Referral Priority Routine Reason ABNORMAL US OF THYRO ID Newly discovered [employer]os Diagnosis 1 Thyromegaly (E01.0) Referral Organization [facility] [place] Referring Provider First Name Darwin Referring Provider Last Name [facility] Referring Provider Specialty Nurse Pract itioner Referred Provider Specialty Ear, Nose an d Throat Referral Priority Routine Additional Source Comments INFORMATION SOURCE (unrecogn ized section and content) DATE CREATED AUTHOR 09/04/2021 [employer] DATE CREATED AUTHOR AUTHOR'S ORGANIZ ATION 12/18/[address] [facility] DATE CREATED AUTHOR AUTHOR'S ORGANIZ ATION 11/22/2023 [facility] DATE CREATED AUTHOR AUTHOR'S ORGANIZ ATION 03/20/2024 [facility] DATE CREATED AUTHOR AUTHOR'S ORGANIZ ATION 08/05/2024 [facility] DATE CREATED AUTHOR AUTHOR'S ORGANIZ ATION 09/06/2024 [facility] DATE CREATED AUTHOR AUTHOR'S ORGANIZ ATION 09/08/2024 [facility] DATE CREATED AUTHOR AUTHOR'S ORGANIZ ATION 09/13/2024 [facility] DATE CREATED AUTHOR AUTHOR'S ORGANIZ ATION 10/16/2024 [facility] DATE CREATED AUTHOR AUTHOR'S ORGANIZ ATION 10/17/2024 [facility] DATE CREATED AUTHOR AUTHOR'S ORGANIZ ATION 10/21/2024 [facility] DATE CREATED AUTHOR AUTHOR'S ORGANIZ ATION 10/25/2024 [facility] DATE CREATED AUTHOR AUTHOR'S ORGANIZ ATION 10/29/2024 [facility] EPIC Care Teams (unrecognized sec [...] [address] Attending Provider Active Start: [facility] 2023 End: November 01, 2023 Team Status: Inactive Member Role Status Dates Darwin Jones APRN Primary Care Pr cassie, Attending Provider Active Start: November 25, 2023 End: November 25, 2023 Team Status: Inactive Member Role Status Dates Darwin Jones APRN Primary Care Provider Active Start: November 30, 2023 End: November 30, [address] Attending Provider Active Start: Ap 2023 End: November 30, 2023 Team Status: Active Member Role Status Dates Provider Conversion Attending Provider Active St art: August 30, 2023 Team Status: Inactive Member Role Status Dates Darwin Jones , PROPELLANT ASSEMBLER Primary Care Provider Active Addi Ortega DO [facility] Attending Provider Active Team Status: Inactive Member Role Status Dates Darwin Jones , PROPELLANT ASSEMBLER Primary Care Provider Active [address] Attending Provider Active Team Status: Active Member Role Status Dates Darwin Jones , PROPELLANT ASSEMBLER Primary Care Provider Active Ofelia Hester APRN Active Ofelia Hester APRN Attending Provider Active Team Status: Inactive Member Role Status Dates Darwin Jones , PROPELLANT ASSEMBLER Primary Care Provider Active Ofelia Hester APRN Attending Provider Active Team Status: Inactive Member Role Status Dates PHYSICIAN NO FAMILY Primary Care Provider Active Addi Ortega DO [facility] Attending Provider Active Team Status: Active Member Role Status Dates PHYSICIAN NO FAMILY Primary Care Provider Active Team Status: Inactive Member Role Status Dates Darwin Jones , PROPELLANT ASSEMBLER Primary Care Provider, Attend ing Provider Active Team Status: Inactive Member Role Status Dates Darwin Jones , PROPELLANT ASSEMBLER Primary Care Provider Active Saad Valera DO Attending Provider Active Hydraulic Corrugating Machine Operator Relationship Specialty Start Date End Date Darwin Jones, SOIL FERTILITY EXTENSION SPECIALIST [address] [address] Referring Family Medicine 04/22/22 Hydraulic Corrugating Machine Operator Relationship Specialty Start Date End Date Darwin Jones, SOIL FERTILITY EXTENSION SPECIALIST [address] [address] Referring Family Medicine 04/22/22 Team Status: Inactive Member Role Status Dates Darwin Jones , PROPELLANT ASSEMBLER Primary Care Provider Active Jeovanny Quiros DO Emergency Provider Active Hydraulic Corrugating Machine Operator Relationship Specialty Start Date End Date EastereHrve cavazosa, SOIL FERTILITY EXTENSION SPECIALIST [address] [address] Referring Family Medicine 04/22/22 Hydraulic Corrugating Machine Operator Relationship Specialty Start Date End Date EasterDarwin cavazos CNP [address] [facility] [address] [place] [address] Referring Family Medicine 04/22/22 Team Status: Inactive Member Role Status Dates Darwin Jones APRN Attending Provider Active Start: July 23, 2023 End: July 23, 2023 Team Status: Inactive Member Role Status Dates Darwin Jones APRN Attending Provider Active Start: August 25, 2023 End: August 25, 2023 Hydraulic Corrugating Machine Operator Relationship Specialty Start Date End Date Darwin Jones CNP [address] [facility] [address] [place] [address] Referring [facility] 04/22/22 Team Status: Inactive Member Role [...] End: April 06, 2024 Addi PERES DO [facility] Attending Provider Active Start: April 06, 2024 End: April 06, 2024 Team Status: Inactive Member Role Status Dates Darwin Jones APRN Primary Care Pr ovider, Attending Provider Active Start: May 11, 2024 End: May 11, 2024 Team Status: Inactive Member Role Status Dates Darwin Jones APRN Primary Care Provider Active Start: May 24, 2024 End: May 24, 2024 Brainjonathan Chiango , DO Attending [...] July 31, 2024 End: July 31, 2024 Brainjonathan Chiango , DO Attending Provider [...] September 21, 2024 End: September 21, 2024 Hydraulic Corrugating Machine Operator Relationship Specialty Start Date End Date No Pcp, [place] [address] PCP - General Family Medicine 08/19/19 Hydraulic Corrugating Machine Operator Relationship Specialty Start Date End Date No Pcp, [place] [address] PCP - General Family Medicine 08/19/19 Hydraulic Corrugating Machine Operator Relationship Specialty Start Date End Date No Pcp, [place] [address] PCP - General Family Medicine 08/19/19 Goals [...] George has been rescheduled to 07/08 at [facility] with Dr. Robertson. sending mail reminder [...] or prosecute any alcohol or drug abuse patient.City HospitalIn the event this information is protected by the Federal Confidentiality of Alcohol and Drug Abuse Patient Records regulations: The Federal rules restrict any use of the information to criminally investigate or prosecute any alcohol or drug abuse patient.City HospitalIn the event this information is protected by the Federal Confidentiality of Alcohol and Drug Abuse Patient Records regulations: The Federal rules restrict any use of the information to criminally investigate or prosecute any alcohol or drug abuse patient.City HospitalIn the event this information is protected by the Federal Confidentiality of Alcohol and Drug Abuse Patient Records regulations: The Federal rules restrict any use of the information to criminally investigate or prosecute any alcohol or drug abuse patient.City HospitalIn the event this information is protected by the Federal Confidentiality of Alcohol and Drug Abuse Patient Records regulations: The Federal rules restrict any use of the information to criminally investigate or prosecute any alcohol or drug abuse patient.City HospitalIn the event this information is protected by the Federal Confidentiality of Alcohol and Drug Abuse Patient Records regulations: The Federal rules restrict any use of the information to criminally investigate or prosecute any alcohol or drug abuse patient.[facility] FOR RECORDS PERTAINING TO PATIENTS WHO [...] BE BASED ON THE PRIMARY CLINICAL RECORDS. [facility] [employer] [facility]. provides no warranty or guarantee of the accuracy or completeness of information in this document.
[2024-10-31 08:53] LABS: Bilirubin Urine SMALL (NEGATIVE); Blood Urine NEGATIVE (NEGATIVE); Clarity Urine CLEAR (CLEAR); Color Urine YELLOW (YELLOW); Glucose Urine UA NEGATIVE (NEGATIVE); Ketones Urine TRACE mg/dL (NEGATIVE); Leukocyte Esterase Urine TRACE (NEGATIVE); Nitrite Urine NEGATIVE (NEGATIVE); Protein Urine NEGATIVE (NEG/TRACE); Specific Gravity Urine 1.025 (1.005-1.025); Urobilinogen Urine 0.2 EU/dL (0.2-1.0); pH Urine 5.5 (5.0-9.0)
[2024-10-31 08:58] LABS: Urine Microscopic Indicated YES
[2024-10-31 09:10] LABS: Bacteria Urine TRACE #/HPF (NONE SEEN); Cast Seen? NONE SEEN #/LPF (NONE SEEN); Crystals Seen? None Seen #/HPF (None Seen); Mucus Urine SMALL (NONE SEEN); RBC Urine 0-2 #/HPF (0-2); Squamous Epithelial Cell Urine FEW #/LPF (NONE/RARE); Urine Culture Indicated NO
[2024-10-31 09:35] LABS: Basophils Percent Auto 0.1 % (0.2-2.0); Eosinophils Percent Auto 0.5 % (0.9-7.0); Hemoglobin 10.3 g/dL (12.0-16.0); Immature Granulocytes Abs Auto 0.03 10^3/uL (0.00-0.03); Immature Granulocytes Pct Auto 0.3 % (0.0-0.5); Lymphocytes Percent Auto 23.4 % (20.5-60.0); Mean Corpuscular HGB Conc 33.2 g/dL (29.9-35.2); Mean Corpuscular Hemoglobin 29.8 pg (26.7-34.0); Mean Corpuscular Volume 89.6 fL (81.0-99.0); Mean Platelet Volume 10.6 fL (9.5-13.5); Monocytes Absolute Auto 0.5 10^3/uL (0.3-0.8); Monocytes Percent Auto 5.9 % (1.7-12.0); Neutrophils Percent Auto 69.8 % (43.0-75.0); Platelet Count 335 10^3/uL (150-450); Red Blood Count 3.46 10^6/uL (4.20-5.40); Red Cell Distribution Width 12.3 % (11.0-15.0); White Blood Count 8.7 10^3/uL (4.0-11.0)
[2024-10-31 09:56] LABS: Amphetamine Screen Urine NEGATIVE (NEGATIVE); Barbiturates Screen Urine NEGATIVE (NEGATIVE); Benzodiazepines Screen Urine NEGATIVE (NEGATIVE); Buprenorphine Screen Urine NEGATIVE (NEGATIVE); Cannabinoid Screen Urine NEGATIVE (NEGATIVE); Cocaine Screen Urine NEGATIVE (NEGATIVE); Methadone Screen Urine NEGATIVE (NEGATIVE); Methamphetamines Screen Urine NEGATIVE (NEGATIVE); Opiate Screen Urine NEGATIVE (NEGATIVE); Oxycodone Screen Urine NEGATIVE (NEGATIVE); Phencyclidine Screen Urine NEGATIVE (NEGATIVE); Tricyclic Antidepressant Urine NEGATIVE (NEGATIVE)
[2024-10-31] MEDS: 0.9 % SODIUM CHLORIDE 1,000 ML 1000 ML IV ×2 (10:00→11:29)
[2024-10-31] MEDS: CITRIC ACID/SODIUM CITRATE 30 ML SOLUTION ORACIT SHOHL'S SOLN PO (11:17)
[2024-10-31] MEDS: FAMOTIDINE/PF 20 MG/2 ML VIAL IV (11:19)
[2024-10-31] MEDS: METOCLOPRAMIDE HCL 10 MG/2 ML VIAL IVP (11:21)
[2024-10-31] MEDS: CEFAZOLIN SODIUM/DEXTROSE,ISO 2 GM/50 ML PIGGYBACK IV ×2 (11:28→18:37)
[2024-10-31] MEDS: LACTATED RINGER'S SOLUTION 1,000 ML 50 ML IV ×2 (12:45→12:55)
--- NOTE | 2024-10-31 13:19 | P.ON_ITS ---
Brief Operative Note Date of procedure: 10/31/24 Pre-op diagnosis general: iup at 38 6/7wks, active labor, previous c/s Post-op diagnosis: same as pre-op Procedure: NAME OF PROCEDURE: [ section ] PROCEDURE: Patient was taken back to the Operating Room where she was given a spinal anesthesia with Duramorph without difficulty. She was prepped and draped in the normal sterile fashion. A Pfannenstiel skin incision was then made 2 cm above the symphysis pubis and carried down to underlying rectus fascia using a Bovie. The fascia was incised in the midline and extended laterally using Hernandez scissors. Two Sherry clamps were placed on the superior aspect of the fascia and dissected off the underlying rectus muscles. The same was performed on the inferior aspect as well. The muscles were then in the midline. Perito neum was identified and entered bluntly. The peritoneum was then extended superiorly and inferiorly with good visualization of the bladder. The bladder blade was inserted. A low transverse incision was made on the patient's uterus and extended laterally digitally. The was then delivered atraumatically after the bladder blade was removed in the cephalic position. The cord was clamped and cut. Cord blood was obtained. The was handed off to awaiting team. The patient's placenta was spontaneously delivered. The uterus was then exteriorized. The uterus was cleared of all clots and debris. The bladder blade was reinserted. The patient's uterine incision was closed using #0 Vicryl in a running lock fashion. Excellent hemostasis was assured. The uterus was then returned to the patient's abdomen. The patient's abdomen was copiously irrigated using warm saline. Peritoneal gutters were cleared of all clots and debris. Again excellent hemostasis was assured. The patient's peritoneum was closed using 3-0 Vicryl in a running fashion. The patient's fascia was closed using #0 Vicryl in a running fashion. The patient's skin was closed using 4-0 Vicryl subcuticularly. The patient tolerated the procedure well. Sponge, lap, and needle counts were correct x2. The patient was taken to the Recovery Room in stable condition. Anesthesia: spinal Surgeon: Brain Way Organisation And Methods Analyst: Kennedi Mauro Estimated blood loss (mL): 575 Pathology: none sent Condition: stable Disposition: PACU Urinary Catheter Management Urinary Catheter Management Urethral: Cath placed during this visit: no
--- NOTE | 2024-10-31 13:21 | PM.OBPRCCS ---
Procedure Pre-op/Post-op diagnoses: Pre-Op/Post-Op Diagnoses Operation Date: 10/31/24 11:45 <No data on this case meets the specified criteria> Procedure: Procedures Operation Date: 10/31/24 11:45 Actual Procedure Side Surgeon p Repeat Not Applicable Brain Way DO Artificial Flowers Starcher: Kennedi Mauro Estimated blood loss (mL): 575 Disposition: floor Anesthesia type: Spinal
[2024-10-31] MEDS: ONDANSETRON PF 4 MG/2 ML VIAL IV (16:11)
--- NOTE | 2024-10-31 16:58 | PC.NURSE ---
1252- Viable infant boy born via repeat per . Infant purple in color at OR table. small cry. Tone slightly flexed. tactile stim per OR staff. mouth and nose bulb suction per OR staff. Infant dried w/ OR towel at table. handed to this RN and taken to radiant warmer with awaiting RT. 1253- Infant at radiant warmer. Infant mouth and nose bulb suction per this RN. Sm clear secretions obtained. Tactile stim continues per Kristen RT. No cry noted per ; HR >100bpm. Infant purple- pink in color. RR slow irregular. Moist bases noted tone slightly flexed. reflex response noted. Cardiac and SpO2 monitors placed on . SpO2 appropriate for minute of age; 70%. Wet blanket removed and hat placed on . Infant voids at warmer. 1256- remains at radiant warmer. Infant HR>100bpm. RR 50; subcostal retractions noted w/ nasal flaring. SPO2 reading 65% and decreases to 50%. CPAP applied at 5cm H2O at 21% FIO2 per this RN. Infant purple-pink in color. Tone slightly flexed. No cry noted. Reflect response present. temp 98.0. Infant SpO2 remains 65%; FiO2 increased to 30%. being transported back to nursery at this time. 1259- During transition to nursery; SPO2 stat drops to 53%. CPAP 5cm H2O increased 50% FIO2. Infant SPO2 continues to have reading in 50-55%. FiO2 increased to 60%. purple in color, with increase in FiO2 pink color pinking throughout. Infant continues subcostal retractions, grunting, and nasal flaring. 1302- Infant arrives to nursery. CPAP remains at 5cm H2O at FiO2 60%. pink in color. RR 50; clear lungs. Infant continues to have subcostal retractions, grunting, and nasal flaring noted. SpO2 99%. HR 152. Tone flexed. ?Infant mouth and nose bulb suctioned; clear secretions obtained. Wet blankets removed. Cardiac leads replaced. 1303- CPAP 5cm H2O FiO2 decreased 50%. RR 50; clear lungs. continues to have subcostal retractions, grunting, and nasal flaring noted. SpO2 97%. HR-132. Tone flexed. mouth and nose bulb suctioned; clear secretions obtained. 1304- notified at this time per H.Horacio LOZOYA. 1305- CPAP 5cm H2O at FiO2 decreased 40%. Then decreased again to 30% FiO2. RR ranges from 50-60; clear lungs. Infant continues to have subcostal retractions, grunting, and nasal flaring noted. SpO2 98%. HR 158. Tone flexed. 1306- CPAP 5cm at 30% FiO2. HR 146. SpO2 94%. RR ranges from 50-60. Infant continues to have subcostal retractions, grunting, and nasal flaring noted. Infant nose and mouth bulb suctioned; clear secretions obtained. BS 66. SpO2 drops to 84%; CPAP FIO2 inceased 40%. With increase SpO2 rises to 94%.
[2024-10-31] MEDS: 0.9 % SODIUM CHLORIDE 1,000 ML 125 ML IV (18:37)
[2024-10-31] MEDS: KETOROLAC TROMETHAMINE 30 MG/ML VIAL IVP (18:37)
--- NOTE | 2024-10-31 21:33 | W.PC.ACHO ---
Registration Status: ADM IN Primary Language: Singaporean Preferred Language: Singaporean 1930- Report given at this time. Care relinquished. Active Medications Generic Name Dose Route Start Last Admin Trade Name Freq PRN Reason Stop Dose Admin Acetaminophen 1,000 mg 10/31/24 21:00 Acetaminophen 500 Mg Tablet PO 11/02/24 21:01 Q8H JAMI Al Hydroxide/Mg Hydroxide 2,400 mg 10/31/24 13:21 Magnesium Hydroxide 2,400 Mg/10 Ml Oral.Susp PO Q6H PRN Dyspepsia Celecoxib 20 mg 10/31/24 22:00 Citalopram Hydrobromide 20 Mg Tablet PO QHS JAMI Diphenhydramine HCl 25 mg 10/31/24 13:21 Diphenhydramine Hcl 50 Mg/Ml Vial IV 11/01/24 13:21 Q6H PRN Itching Diphtheria/Pertussis/Tetanus Vacc 0.5 ml 11/02/24 09:00 Adacel Diph,Pertuss(Acell),Tet Vac/Pf 0.5 Ml Adult Syringe IM 11/02/24 09:01 .ONCE ONE Docusate Sodium 100 mg 11/01/24 09:00 Docusate Sodium 100 Mg Capsule PO BID JAMI Enoxaparin Sodium 40 mg 11/01/24 00:00 Enoxaparin Sodium 40 Mg/0.4 Ml Syringe SUBQ Q24H JAMI Oxytocin/Sodium Chloride 20 units in 1,000 mls @ 125 mls/hr 10/31/24 09:03 Pitocin 20 Unit/1,000 Ml-Ns IV Q8H PRN POST DELIVERY Sodium Chloride 1,000 mls @ 125 mls/hr 10/31/24 09:30 10/31/24 18:37 Sodium Chloride 0.9% 1,000 Ml IV 125 mls/hr .Q8H JAMI Administration Promethazine HCl 25 mg/ Sodium 51 mls @ 204 mls/hr 10/31/24 13:21 Chloride IV Q6H PRN Nausea And Vomiting Sodium Chloride 1,000 mls @ 125 mls/hr 10/31/24 13:21 Sodium Chloride 0.9% 1,000 Ml IV .Q8H PRN IF NOT TOLERATING PO FLUIDS OR Ibuprofen 800 mg 11/01/24 14:00 Ibuprofen 400 Mg Tablet PO Q6H JAMI Ketorolac Tromethamine 30 mg 10/31/24 19:30 10/31/24 18:37 Ketorolac Tromethamine 30 Mg/Ml Vial IVP 11/01/24 07:31 30 mg Q6H JAMI Administration Levothyroxine Sodium 100 mcg 11/01/24 06:30 Levothyroxine Sodium 100 Mcg Tablet PO ACB JAMI Measles/Mumps/Rubella Vaccine Live 0.5 ml 11/02/24 09:00 Measles,Mumps,Rubella Vacc/Pf 0.5 Ml Vial SQ 11/02/24 09:01 .ONCE ONE Nalbuphine HCl 10 mg 10/31/24 13:21 Nalbuphine Hcl 10 Mg/Ml Ampule IV 11/01/24 13:21 Q3H PRN Itching Ondansetron HCl 4 mg 10/31/24 13:21 10/31/24 16:11 Ondansetron Pf 4 Mg/2 Ml Vial IV 4 mg Q6H PRN Administration Nausea And Vomiting Ondansetron HCl 4 mg 10/31/24 13:21 Ondansetron 4 Mg Rapdis Tablet PO Q6H PRN Nausea And Vomiting Oxycodone HCl 5 mg 10/31/24 13:21 Oxycodone Hcl 5 Mg Tablet PO Q4H PRN Breakthrough Pain Senna 17.2 mg 10/31/24 20:00 Sennosides 8.6 Mg Tablet PO QHS PRN Constipation Simethicone 80 mg 10/31/24 13:21 Simethicone 80 Mg Tab.Chew PO QID PRN Abdominal Distention Diet Category Date Time Status Regular Consistency Diet Diet 10/31/24 13:21 Active Consults Category Date Time Status Consult to Anesthesiology Routine Cons 10/31/24 Ordered IV Insertion/Site Date of IV Line Insertion [ 10/31/24 Short PIV (<1.75 in) 20g Hand] IV Insertion Time [Short PIV ( 09:19 <1.75 in) 20g Hand] Neurology Patient orientation (short person,place,time,situation list) Respiratory Pulse Oximetry 97 Pulse Oximetry 98 Pulse Oximetry 97 Pulse Oximetry 97 Pulse Oximetry 99 Pulse Oximetry 97 Pulse Oximetry 95 Pulse Oximetry 98 Pulse Oximetry 98 Pulse Oximetry 98 Pulse Oximetry 98 Pulse Oximetry 99 Pulse Oximetry 90 Pulse Oximetry 90 Pulse Oximetry 97 Pulse Oximetry 97 Pulse Oximetry 95 Pulse Oximetry 94 Pulse Oximetry 100 Pulse Oximetry 100 Pulse Oximetry 100 Pulse Oximetry 99 Pulse Oximetry 100 Pulse Oximetry 97 Pulse Oximetry 98 Pulse Oximetry 99 Pulse Oximetry 97 Pulse Oximetry 97 Pulse Oximetry 96 Pulse Oximetry 98 Pulse Oximetry 98 Pulse Oximetry 99 Pulse Oximetry 97 Pulse Oximetry 98 Pulse Oximetry 99 Pulse Oximetry 97 Pulse Oximetry 99 Pulse Oximetry 98 Pulse Oximetry 98 Pulse Oximetry 99 Pulse Oximetry 97 Pulse Oximetry 99 Oxygen Delivery Method Room Air Oxygen Delivery Method Room Air Oxygen Delivery Method Room Air Catheter Urinary Catheter Date of 10/31/24 Insertion [Urethral] Urinary Catheter Time of 12:35 Insertion [Urethral]
[2024-10-31] MEDS: ACETAMINOPHEN 500 MG TABLET 1000 MG PO (22:25)
[2024-10-31] MEDS: CITALOPRAM HYDROBROMIDE 20 MG TABLET PO (22:27)
[2024-11-01] MEDS: KETOROLAC TROMETHAMINE 30 MG/ML VIAL IVP ×2 (00:42→09:39)
[2024-11-01 00:47] VITALS: BP 110/68; TEMP 36.4
[2024-11-01 05:58] VITALS: BP 132/56; TEMP 36.6
[2024-11-01] MEDS: LEVOTHYROXINE SODIUM 100 MCG TABLET PO (05:58)
[2024-11-01] MEDS: ACETAMINOPHEN 500 MG TABLET 1000 MG PO ×3 (05:58→22:16)
[2024-11-01] MEDS: ENOXAPARIN SODIUM 40 MG/0.4 ML SYRINGE SUBQ (05:58)
[2024-11-01 06:36] LABS: Basophils Percent Auto 0.2 % (0.2-2.0); Hematocrit 25.8 % (36.0-48.0); Hemoglobin 8.6 g/dL (12.0-16.0); Immature Granulocytes Abs Auto 0.07 10^3/uL (0.00-0.03); Immature Granulocytes Pct Auto 0.5 % (0.0-0.5); Lymphocytes Absolute Auto 2.1 10^3/uL (1.2-3.8); Lymphocytes Percent Auto 16.5 % (20.5-60.0); Mean Corpuscular HGB Conc 33.3 g/dL (29.9-35.2); Mean Corpuscular Volume 89.9 fL (81.0-99.0); Mean Platelet Volume 10.2 fL (9.5-13.5); Monocytes Absolute Auto 0.9 10^3/uL (0.3-0.8); Neutrophils Absolute Auto 9.8 10^3/uL (1.4-6.5); Neutrophils Percent Auto 75.8 % (43.0-75.0); Platelet Count 274 10^3/uL (150-450); Red Blood Count 2.87 10^6/uL (4.20-5.40); Red Cell Distribution Width 12.3 % (11.0-15.0); White Blood Count 12.9 10^3/uL (4.0-11.0)
--- NOTE | 2024-11-01 07:48 | PM.OBPN ---
OB - PN: Subj Subjective Patient comments: no complaints and pain well controlled [place] status: doing well Exam Constitutional Vital Signs, click to edit/add: Last Vital Signs Temp 97.8 F 11/01/24 05:58 Pulse 98 H 10/31/24 15:50 Resp 16 10/31/24 19:15 BP 132/56 11/01/24 05:58 Pulse Ox 97 10/31/24 18:10 O2 Del Method Room Air 11/01/24 06:00 Documenting provider has reviewed patient's vital signs: yes Common normals: no apparent distress Respiratory Common normals: normal respiratory effort and clear to auscultation bilaterally Cardio Common normals: regular rate and regular rhythm GI Common normals: Normal to inspection, nondistended, normoactive bowel sounds present Extremity Common normals: no clubbing, cyanosis or edema Results Labs Labs: Short CBC 10/31/24 11/01/24 Range/Units 09:19 06:30 WBC 8.7 12.9 H (4.0-11.0) 10^3/uL Hgb 10.3 L 8.6 L (12.0-16.0) g/dL Hct 31.0 L 25.8 L (36.0-48.0) % Plt Count 335 274 (150-450) 10^3/uL Urine 10/31/24 Range/Units 08:23 Urine Color Yellow (YELLOW) Urine Clarity Clear (CLEAR) Urine pH 5.5 (5.0-9.0) Ur Specific [place] 1.025 (1.005-1.025) Urine Protein Negative (NEG/TRACE) mg/dL Urine Glucose (UA) Negative (NEGATIVE) mg/dL Urinary Catheter Management Urinary Catheter Management Urethral: Cath placed during this visit: yes, but has since been removed by the nurse Insertion date: 10/31/24 Insertion time: 12:35 Removal date: 11/01/24 Removal time: 06:10 OB - PN: A/P Plan - day: 1 Plan: routine postop care Time Spent with Patient Time: Total time spent is greater than 50% in coordination of care (as documented) at patient's floor/unit and/or counseling patient: Total time spent with greater than 50% in coordination of care (as documented) at patient's floor/unit and/or counseling patient: less than 15 minutes
[2024-11-01] MEDS: DOCUSATE SODIUM 100 MG CAPSULE PO ×2 (09:39→22:16)
[2024-11-01 09:48] VITALS: BP 129/76
[2024-11-01] MEDS: SIMETHICONE 80 MG TAB.CHEW PO (10:56)
[2024-11-01] MEDS: RHO(D) IMMUNE GLOBULIN 1,500 UNIT SYRINGE 1500 UNIT IV (14:06)
[2024-11-01 14:13] VITALS: BP 112/56; TEMP 36.2
[2024-11-01] MEDS: IBUPROFEN 400 MG TABLET 800 MG PO ×2 (16:25→22:16)
--- NOTE | 2024-11-01 20:14 | W.PC.ACHO ---
Registration Status: ADM IN Primary Language: Colombian Preferred Language: Colombian Report given to Yoanna LOZOYA at 1915. Care relinquished. Active Medications Generic Name Dose Route Start Last Admin Trade Name Freq PRN Reason Stop Dose Admin Acetaminophen 1,000 mg 10/31/24 21:00 11/01/24 14:10 Acetaminophen 500 Mg Tablet PO 11/02/24 21:01 1,000 mg Q8H JAMI Administration Al Hydroxide/Mg Hydroxide 2,400 mg 10/31/24 13:21 Magnesium Hydroxide 2,400 Mg/10 Ml Oral.Susp PO Q6H PRN Dyspepsia Celecoxib 20 mg 10/31/24 22:00 10/31/24 22:27 Citalopram Hydrobromide 20 Mg Tablet PO 20 mg QHS JAMI Administration Diphtheria/Pertussis/Tetanus Vacc 0.5 ml 11/02/24 09:00 Adacel Diph,Pertuss(Acell),Tet Vac/Pf 0.5 Ml Adult Syringe IM 11/02/24 09:01 .ONCE ONE Docusate Sodium 100 mg 11/01/24 09:00 11/01/24 09:39 Docusate Sodium 100 Mg Capsule PO 100 mg BID JAMI Administration Enoxaparin Sodium 40 mg 11/02/24 05:00 Enoxaparin Sodium 40 Mg/0.4 Ml Syringe SUBQ Q24H JAMI Oxytocin/Sodium Chloride 20 units in 1,000 mls @ 125 mls/hr 10/31/24 09:03 Pitocin 20 Unit/1,000 Ml-Ns IV Q8H PRN POST DELIVERY Sodium Chloride 1,000 mls @ 125 mls/hr 10/31/24 09:30 10/31/24 18:37 Sodium Chloride 0.9% 1,000 Ml IV 125 mls/hr .Q8H JAMI Administration Promethazine HCl 25 mg/ Sodium 51 mls @ 204 mls/hr 10/31/24 13:21 Chloride IV Q6H PRN Nausea And Vomiting Sodium Chloride 1,000 mls @ 125 mls/hr 10/31/24 13:21 Sodium Chloride 0.9% 1,000 Ml IV .Q8H PRN IF NOT TOLERATING PO FLUIDS OR Ibuprofen 800 mg 11/01/24 14:00 11/01/24 16:25 Ibuprofen 400 Mg Tablet PO 800 mg Q6H JAMI Administration Levothyroxine Sodium 100 mcg 11/01/24 06:30 11/01/24 05:58 Levothyroxine Sodium 100 Mcg Tablet PO 100 mcg ACB JAMI Administration Measles/Mumps/Rubella Vaccine Live 0.5 ml 11/02/24 09:00 Measles,Mumps,Rubella Vacc/Pf 0.5 Ml Vial SQ 11/02/24 09:01 .ONCE ONE Ondansetron HCl 4 mg 10/31/24 13:21 10/31/24 16:11 Ondansetron Pf 4 Mg/2 Ml Vial IV 4 mg Q6H PRN Administration Nausea And Vomiting Ondansetron HCl 4 mg 10/31/24 13:21 Ondansetron 4 Mg Rapdis Tablet PO Q6H PRN Nausea And Vomiting Oxycodone HCl 5 mg 10/31/24 13:21 Oxycodone Hcl 5 Mg Tablet PO Q4H PRN Breakthrough Pain Senna 17.2 mg 10/31/24 20:00 Sennosides 8.6 Mg Tablet PO QHS PRN Constipation Simethicone 80 mg 10/31/24 13:21 11/01/24 10:56 Simethicone 80 Mg Tab.Chew PO 80 mg QID PRN Administration Abdominal Distention Respiratory Oxygen Delivery Method Room Air Oxygen Delivery Method Room Air Oxygen Delivery Method Room Air Oxygen Delivery Method Room Air Renal Bladder Pattern Continent Catheter Urinary Catheter Date of 10/31/24 Insertion [Urethral] Urinary Catheter Time of 12:35 Insertion [Urethral] Date Urinary Catheter Removed 11/01/24 [Urethral] Date Urinary Catheter Removed 11/01/24 [Urethral] Time Urinary Catheter 06:10 Discontinued [Urethral] Time Urinary Catheter 06:10 Discontinued [Urethral]
[2024-11-01] MEDS: CITALOPRAM HYDROBROMIDE 20 MG TABLET PO (22:16)
[2024-11-01] MEDS: OXYCODONE HCL 5 MG TABLET PO (22:16)
[2024-11-02 00:43] VITALS: BP 124/77; PULSE 91; TEMP 36.6
[2024-11-02] MEDS: SIMETHICONE 80 MG TAB.CHEW PO (04:48)
[2024-11-02] MEDS: IBUPROFEN 400 MG TABLET 800 MG PO ×3 (04:48→19:29)
[2024-11-02] MEDS: LEVOTHYROXINE SODIUM 100 MCG TABLET PO (06:27)
[2024-11-02] MEDS: ACETAMINOPHEN 500 MG TABLET 1000 MG PO ×3 (06:27→22:30)
[2024-11-02] MEDS: ENOXAPARIN SODIUM 40 MG/0.4 ML SYRINGE SUBQ (06:27)
[2024-11-02 08:10] VITALS: PULSE 88; TEMP 36.7
[2024-11-02] MEDS: OXYCODONE HCL 5 MG TABLET PO ×3 (08:21→22:22)
[2024-11-02] MEDS: DOCUSATE SODIUM 100 MG CAPSULE PO ×2 (08:21→22:22)
--- NOTE | 2024-11-02 09:10 | P.OBPN_ITS ---
OB - PN: Subj Subjective Patient comments: no complaints [place] status: doing well [place] feeding status: exclusively bottle feeding Exam Constitutional Vital Signs, click to edit/add: Last Vital Signs Temp 98 F 11/02/24 00:43 Pulse 91 H 11/02/24 00:43 Resp 16 11/02/24 00:43 BP 124/77 11/02/24 00:43 Pulse Ox 97 10/31/24 18:10 O2 Del Method Room Air 11/02/24 00:43 Common normals: no apparent distress, average body habitus, oriented x3, no limitations, healthy appearing, alert and well nourished HENMT Common normals: normocephalic Eye Common normals: EOMs intact bilaterally General eye: normal appearance of both eyes Neck & C-Spine Common normals: full ROM and no lymphadenopathy General: normal visual inspection Lymph Lymphatic: no lymphadenopathy noted Chest Common normals: inspection of chest normal Respiratory Common normals: normal respiratory effort Effort & inspection: able to speak in complete sentences Auscultation: clear to auscultation bilaterally Cardio Common normals: regular rate and regular rhythm Rate: regular rate Rhythm: regular rhythm GI Common normals: Normal to inspection, nondistended, normoactive bowel sounds present Inspection: normal to inspection Auscultation: normoactive bowel sounds Palpation: soft Rectal Exam - Female: deferred Common normals: no CVA tenderness Back & Pelvis Common normals: no CVA tenderness Extremity Common normals: normal to inspection and full ROM Neuro Common normals: oriented x3 Sensorium/orientation: awake, alert, oriented to person, oriented to place and oriented to time Psych Common normals: mental status grossly normal, thought process normal, cooperative, affect normal, speech normal, activity/motor behavior normal, denies hallucinations, denies homicidal ideation and denies suicidal ideation Attitude: calm Activity/motor behavior: appropriate eye contact Speech: normal speech Thought process: normal thought process Urinary Catheter Management Urinary Catheter Management Urethral: Cath placed during this visit: yes, but has since been removed by the nurse Insertion date: 10/31/24 Insertion time: 12:35 Removal date: 11/01/24 Removal time: 06:10 OB - PN: A/P Plan - day: 2 Plan: routine postop care Time Spent with Patient Time: Total time spent is greater than 50% in coordination of care (as documented) at patient's floor/unit and/or counseling patient: Total time spent with greater than 50% in coordination of care (as documented) at patient's floor/unit and/or counseling patient: less than 15 minutes
[2024-11-02 17:29] VITALS: BP 110/67; PULSE 84; TEMP 36.7
[2024-11-02] MEDS: CITALOPRAM HYDROBROMIDE 20 MG TABLET PO (22:22)
[2024-11-03 00:09] VITALS: BP 126/61; PULSE 83; TEMP 37.1
[2024-11-03] MEDS: IBUPROFEN 400 MG TABLET 800 MG PO (05:28)
[2024-11-03] MEDS: LEVOTHYROXINE SODIUM 100 MCG TABLET PO (07:29)
--- NOTE | 2024-11-03 07:54 | P.OBPN_ITS ---
OB - PN: Subj Subjective Patient comments: no complaints and pain well controlled [place] status: doing well Exam Constitutional Vital Signs, click to edit/add: Last Vital Signs Temp 98.7 F 11/03/24 00:09 Pulse 83 11/03/24 00:09 Resp 16 11/02/24 17:29 BP 126/61 11/03/24 00:09 Pulse Ox 97 10/31/24 18:10 O2 Del Method Room Air 11/03/24 00:10 Documenting provider has reviewed patient's vital signs: yes Common normals: no apparent distress Respiratory Common normals: normal respiratory effort and clear to auscultation bilaterally Cardio Common normals: regular rate and regular rhythm GI Common normals: Normal to inspection, nondistended, normoactive bowel sounds present Extremity Common normals: no clubbing, cyanosis or edema and no calf tenderness Urinary Catheter Management Urinary Catheter Management Urethral: Cath placed during this visit: yes, but has since been removed by the nurse Insertion date: 10/31/24 Insertion time: 12:35 Removal date: 11/01/24 Removal time: 06:10 OB - PN: A/P Plan - day: 1 Plan: routine postop care, discharge home and other (fu 1wk) Time Spent with Patient Time: Total time spent is greater than 50% in coordination of care (as documented) at patient's floor/unit and/or counseling patient: Total time spent with greater than 50% in coordination of care (as documented) at patient's floor/unit and/or counseling patient: less than 15 minutes
[2024-11-03 08:30] VITALS: TEMP 36.9
[2024-11-03 09:00] VITALS: BP 133/62; PULSE 84
[2024-11-03] MEDS: DOCUSATE SODIUM 100 MG CAPSULE PO (09:04)
[2024-11-03] MEDS: ADACEL DIPH,PERTUSS(ACELL),TET VAC/PF 0.5 ML ADULT SYRINGE IM (11:04)
== END 2024-11-03 11:25 | disposition home or self-care (01) | DRG 788 ==
PROVIDERS: Admitting Provider Obstetrics & Gynecology; PCP Nurse Practitioner Family; Visit Provider Obstetrics & Gynecology
PROC: 10D00Z1 Extraction of Products of Conception, Low, Open Approach (ICD-10-PCS; CPT 59514; principal; 2024-10-31 11:45)
DX: O34.211 Maternal care for low transverse scar from previous cesarean delivery (principal); O99.284 Endocrine, nutritional and metabolic diseases complicating childbirth; E06.3 Autoimmune thyroiditis; O99.344 Other mental disorders complicating childbirth; F41.1 Generalized anxiety disorder; O99.214 Obesity complicating childbirth; Z3A.38 38 weeks gestation of pregnancy; Z37.0 Single live birth; Z79.899 Other long term (current) drug therapy; Z79.890 Hormone replacement therapy; Z79.82 Long term (current) use of aspirin
CPT/HCPCS: 36415; 64488; 80307; 81001; 85025; 85461; 86850; 86900; 86901; 90715; 94667; 94668; J0131; J0665; J0690; J1100; J1650; J1885; J2274; J2371; J2405; J2590; J2765; J2791; J3490

== ENCOUNTER 2025-05-28 14:38 | Outpatient (REF) | payer OTHER, SELFPAY ==
--- OUTSIDE RECORDS SUMMARY | 2025-05-28 14:48 | XMS_ITS | CCD ---
Author Organization [facility] Care Team Providers Care Top Icer Name Role Phone Unknown, Unknown Unavailable Unavailable Unavailable Unavailable NO FAMILY, PHYSICIAN Primary Care Provider Unava ilable DO Addi Ortega Attending Provider Darwin Jones Unavailable DARWIN JONES Primary Care Physician Lilly Luke Unavailable SHIRLEY Jones Primary Care Provider [phone] SHIRLEY Jones Attending Provider [phone] DO Saad Valera Attending Provider Ofelia Hester Unavailable [facility] AMIE Darwin Unavailable Sima Ross Unavailable [facility] AMIE Darwin Unavailable SHIRLEY Jones Primary Care Provider [phone] SHIRLEY Hester Attending Provider SHIRLEY Jones Primary Care Provider SHIRLEY Hester Attending Provider [phone] Attending Provider REQUEST, DR JOCE LISTED Primary Care Unavaila mari Schwartz, DR YEUNG Attending Unavailable SEAMUS ., DR YEUNG Consulting Unavailable SEAMUS ., DR YEUNG Admitting Unavailable [place], BOWLING BALL PATCHER Darwin J Primary Care Provider DO Addi Ortega Attending Provider [phone] [facility] Primary Care Provider DO Jeovanny Quiros Emergency Provider [phone] [facility] Primary Care Provider [phone] DO Addi Ortega Attending Provider [phone] [facility] Attending Provider [facility] Primary Care Provider [address] Attending Provider [phone] SHIRLEY Jones Primary Care Provider [phone]( [phone] Attending Provider [facility] Primary Care Provider Brain Way Attending Provider RobertSHIRLEY cavazos Primary Care Provider DO Brain Way Attending Provider [place] Attending Unavailable Gabriel Curtis Attending Unavailable Tyrone Rock Attending Unavailable SHIRLEY Jones Primary Care Provider DO Brain Way Attending Provider [phone] [facility] Attending Provider SHIRLEY Jones Primary Care Provider DO Brain Way Attending Provider [phone] SHIRLEY Jones Primary Care Provider [phone] Attending Provider Unavailable Primary Care Provider [facility] Darwin Jones APRN Primary Care Provider [facility] Addi SELLESR Attending Provider Seamus DO, Brain Attending Provider SEAMUS, BRAIN R Referring Unavailable NO PCP, NO PCP Primary Care Unavailable DOCHEVA, NIKOLINA P Attending Unavailable NO PCP, NO PCP Primary Care Unavailable DOCHEVA, NIKOLINA P Referring Unavailable DARCY ENRIQUEZ Attending Unavailable SEAMUS, BRAIN R Referring Unavailable NO PCP, NO PCP Primary Care Unavailable [facility] APRN Primary Care Provider Seamus DO, Brain Attending Provider [phone] Mary Ellen Bruce MD Attending Provider [phone] DO Gabriel Curtis Attending Unavailable [place] Attending Unavailable Rogelio Nath Attending Unavailable Rogelio Nath Admitting Unavailable Rogelio Naht Attending Unavailable Rogelio Nath Admitting Unavailable Flash Franco Attending Unavailable RobertDarwin cavazos APRN Primary Care Provider Seamus DO, Brain Attending Provider No Pcp, No Pcp Primary Care Provider Unavailabl e Bordner, Lesley C Admitting Unavailable Bordner, Lesley C Attending Unavailable Bella Lesley C Attending Unavailable Darwin Jones APRN Primary Care Provider [phone] Mary Ellen Bruce MD Attending Provider Seamus DO, Brain Attending Provider Leah Mata APRN Attending Provider STEF, MYA Attending Unavailable SEAMUS, BRAIN Attending Unavailable STEF, MYA Attending Unavailable SEAMUS, BRAIN Attending Unavailable STEF, MYA Attending Unavailable STEF, MYA Attending Unavailable SEAMUS, BRAIN Attending Unavailable SEAMUS, BRAIN Attending Unavailable SEAMUS, BRAIN Attending Unavailable SEAMUS, BRAIN Attending Unavailable STEF, MYA Attending Unavailable STEF, MYA Attending Unavailable ANGELINE MATAISTINA Attending Unavailable SEAMUS, BRAIN Attending Unavailable RobertDarwin cavazos APRN Primary Care Provider RobertDarwin cavazos APRN Primary Care Provider Jose Hester APRNher R Attending Provider [facility] BOWLING BALL PATCHERDarwin Catalan Attending Provider [phone] [facility] BOWLING BALL PATCHER, Darwin Anaya Primary Care Provider Mir BOWLING BALL PATCHEROfelia Catalan R Attending Provider [facility] BOWLING BALL PATCHER, Darwin Anaya Primary Care Provider [facility] Addi SELLERS Attending Provider [facility] BOWLING BALL PATCHERDarwin Attending Provider [phone] STACI ROBERTSON Attending Unavailable [place], Darwin J Primary Care Unavailable Seamus, Brain Admitting Unavailable Seamus, Brain Attending Unavailable Easter[place], Darwin J Attending Unavailable Easterwood, Darwin J Admitting Unavailable Easterwood, Darwin J Primary Care Unavailable Easterwood, Darwin J Primary Care Unavailable Ofelia Hester R Admitting Unavailable Ofelia Hester R Attending Unavailable [place], Drawin Anaya Attending Unavailable [place], Darwin J Admitting Unavailable Easterwood, Darwin J Primary Care Unavailable Easterwood, Darwin J Primary Care Unavailable Adolfo, Leah Admitting Unavailable Alix Mataa Attending Unavailable [facility] Admitting Unavailable [facility], Addi Reaves Attending Unavailable [place], Darwin J Primary Care Unavailable [place], Darwin J Primary Care Unavailable Seamus, Brain Attending Unavailable Seamus, Brain Admitting Unavailable Janis, Mary Ellen Attending Unavailable Janis, Mary Ellen Admitting Unavailable Easterwood, Darwin J Primary Care Unavailable Janis, Mary Ellen Admitting Unavailable Janis, Mary Ellen Attending Unavailable [place], Darwin J Primary Care Unavailable Seamus, Brain Admitting Unavailable Seamus, Brain Attending Unavailable [place], Darwin J Primary Care Unavailable Easterwood, Darwin J Primary Care Unavailable Seamus, Brain Admitting Unavailable Seamus, Brain Attending Unavailable Allergies Allergy Classification Reported Allergen(s) Allergy Type Date of Onset Reaction(s) Facility (6 sources) No Known Medication Allergies; Translations: [No Known Medication Allergies] Propensity to adverse reactions (disorder) [facility] Medications Current Medications Medication Drug [...] tablet (2 sources) Opioid Agonist Start: 06-03-2021 Martin 325 mg-5 mg oral tablet 2 tab(s), [...] day(s), # 20 tab(s), Refills(s) 0, Pharmacy: [facility], 170.2, cm, 09/29/23 10:44:00 EST, Height/Length Dosing, 112, kg, 09/29/23 10:44:00 EST, Weight Dosing Start Date: 09/29/23 Stop Date: 10/09/23 Status: Ordered azithromycin 250 mg oral tablet (3 sources) Macrolide Antimicrobial Start: 08-01-2024 End: 08-23-2024 azithromycin (Zithromax Z-Bang) 250 MG tablet Indications: Other sinusitis, unspecified chronicity As directed 6 tablet 08/01/2024 08/23/2024 Discontinued cephalexin 500 mg oral capsule (20 sources) Cephalosporin Antibacterial Start: 11-14-2024 End: 11-21-2024 take 1 capsule by mouth in the morning, then take 1 capsule by mouth in the evening, then take 1 capsule by mouth at bedtime cephalexin (Keflex) 500 MG capsule Indications: Infection Take 1 capsule (500 mg) by mouth in the morning and 1 capsule (500 mg) in the evening and 1 capsule (500 mg) before bedtime. Do all this for 7 days. 21 capsule 11/14/2024 11/21/2024 Active Start: 03-22-2023 End: 03-29-2023 take 1 capsule by mouth every six hours Keflex 500 mg Cap 500 mg = 1 cap(s), Oral, q6hr, X 7 day(s), # 28 cap(s), Refills(s) 0, Pharmacy: [facility], 170.2, cm, 03/22/23 20:14:00 EDT, Height/Length Dosing, 113.5, kg, 03/22/23 20:14:00 EDT, Weight Dosing Start Date: 03/22/23 Stop Date: 03/29/23 Status: Ordered Start: 07-03-2021 take 1 capsule by mo uth twice daily Keflex 500 mg Cap 500 mg = 1 cap(s), Oral, BID, # 10 cap(s), Refills(s) 0, Pharmacy: [facility], 170, cm, 06/27/21 10:56:00 EST, Height/Length Dosing, 104, kg, 06/23/21 8:09:00 EST, Weight Dosing Start Date: 07/03/21 Status: Ordered Start: 12-29-2020 End: 10-07-2023 take 1 capsule by mouth every eight hours Cephalexin 500 mg capsule Discontinued 500 MG PO Q8H 05 03December 29, 2020 12:00am October 07, 2023 7:06pm Cholecalciferol (20 sources) Vitamin D Start: 04-25-2025 Start: 04-25-2025 cholecalcifero l (vitamin D3) Active PO April 25, 2025 12:00am Complies with drug therapy Start: 08-25-2024 End: 01-22-2025 take 1000 [IU] by mouth once daily cholecalciferol (vitamin D3) Discontinued 1000 UNIT PO Daily August 25, 2024 1:09pm January 22, 2025 7:36am Start: 10-07-2023 Cholecalcifero l, Vitamin D3, 50 mcg (2,000 unit) cap cholecalciferol (vitamin D3) Active PO October 07, 2023 1:00am 0 10/07/2023 Active Start: 10-07-2023 End: 08-25-2024 cholecalciferol (vitamin D3) Discontinued PO October 07, 2023 1:00am August 25, 2024 1:11pm Start: 10-07-2023 End: 08-25-2024 cholecalciferol (vitamin D3) Discontinued PO October 07, 2023 12:00am August 25, 2024 12:11pm Start: 10-07-2023 cholecalcifero l (vitamin D3) Active PO October 07, 2023 12:00am Start: 10-07-2023 cholecalcifero l (vitamin D3) Active PO October 07, 2023 1:00am Comment on above: cholecalciferol (vit galaviz D3) Active PO October 07, 2023 1:00am citalopram 40 mg oral tablet (20 sources) Serotonin Reuptake Inhibitor Start: 11-08-2024 End: 05-07-2025 take 1 tablet by mouth once daily Start: 12-29-2020 End: 10-07-2023 Citalopram Discontinued MG T ABLET December 29, 2020 12:00am October 07, 2023 7:06pm Start: 10-15-2019 End: 10-13-2025 take 1 tablet by mouth once daily at bedtime Citalopram 20 mg tablet Discontinued 20 MG PO Daily at bedtime October 07, 2023 1:00am January 22, 2025 7:37am Comment on above: Take 20 mg by mouth daily at bedtime. diphenhydrAMINE hydrochloride 25 mg oral capsule (1 source) Histamine-1 Receptor Antagonist Start: End: 07-09-2 022 take 1 capsule by mouth three times daily as needed for headache diphenhydrAMINE 25 mg Cap 25 mg = 1 cap(s), Oral, TID, PRN Headache, Take medication with the Reglan for treatment of migraine headache, X 3 day(s), # 15 cap(s), Refills(s) 0 Start Date: 02/18/22 Stop Date: 02/21/22 Status: Ordered levothyroxine sodium 0.075 mg oral tablet (20 sources) l-Thyroxine Start: End: take 1 tablet by mouth once daily Start: 01-22-2025 take 1 tablet by delphine th once daily Levothyroxine 75 mcg tablet Active 75 MCG PO Daily January 22, 2025 12:00am Start: 09-05-2024 take 2 tablets by mo uth once daily Synthroid 50 mcg Tab See Instructions, Oral 2 tab (100mcg) daily, Refills(s) 0 Start Date: 09/05/24 Status: Ordered Start: 08-25-2024 End: 01-22-2025 take 1 capsule by mouth once daily Levothyroxine 100 mcg capsule Discontinued 100 MCG PO Daily August 25, 2024 1:00am January 22, 2025 7:37am Start: 06-29-2024 End: 12-21-2024 take 1 tablet by mouth once daily levothyroxine (Synthroid, Levoxyl) 100 MCG tablet Indications: Abnormal TSH Take 1 tablet (100 mcg) by mouth Daily 30 tablet 2 09/22/2024 12/21/2024 Active Start: 10-07-2023 End: 11-17-2024 take 1 tablet by mouth once daily Levothyroxine 75 mcg tablet Discontinued 75 MCG PO Daily October 07, 2023 1:00am August 25, 2024 1:09pm Start: 04-17-2022 End: 09-28-2022 take 1 tablet [...] 1 tablet by delphine th once daily. magnesium oxide 400 mg oral tablet (20 sources) Start: 05-24-2024 End: 05-24-2025 take 1 tablet by mouth once daily magnesium oxide (Mag-Ox) 400 MG tablet Indications: headache in second trimester Take 1 tablet (400 mg) by mouth Daily 30 tablet 6 05/24/2024 05/24/2025 Active mecobalamin (20 sources) Start: 04-25-2025 Start: 04-25-2025 mecobalamin (v itamin B12) Active PO April 25, 2025 12:00am Complies with drug therapy Start: 10-07-2023 mecobalamin, v itamin B12, 1,000 mcg chew mecobalamin (vitamin B12) Active PO October 07, 2023 1:00am 0 10/07/2023 Active Start: 10-07-2023 End: 08-25-2024 mecobalamin (vitamin B12) Di scontinued PO October 07, 2023 1:00am August 25, 2024 1:10pm Start: 10-07-2023 End: 08-25-2024 mecobalamin (vitamin B12) Di scontinued PO October 07, 2023 12:00am August 25, 2024 12:10pm Start: 10-07-2023 mecobalamin (v itamin B12) Active PO October 07, 2023 12:00am Start: 10-07-2023 mecobalamin (v itamin B12) Active PO October 07, 2023 1:00am Comment on above: mecobalamin (vitamin B12) Active PO October 07, 2023 1:00am medroxyPROGESTERone acetate 10 mg oral tablet (1 [...] day(s), # 21 tab(s), Refills(s) 0, Pharmacy: [facility], 170.2, cm, 09/29/23 10:44:00 EST, Height/Length [...] Refills(s) 0 Start Date: 06/23/21 Status: Ordered norethindrone 0.35 mg oral tablet (2 sources) Start: 12-13-2024 End: 01-10-2025 take 1 tablet by mouth once daily, then take 1 tablet by mouth once daily norethindrone (Micronor) 0.35 MG tablet Indications: 6 weeks follow-up Take 1 tablet (0.35 mg) by mouth Daily for 28 days Take 1 tablet by mouth daily 28 tablet 11 12/13/2024 01/10/2025 Active omeprazole 20 mg delayed release oral capsule [...] Apr, Active take 1 capsule by mo [facility] once daily omeprazole (PRILOSEC) 20 mg [...] Active Start: 02-18-2022 take 1 tablet by [facility] every twelve hours Ondansetron HCl 4 MG [...] Refills(s) 0 Start Date: 02/18/22 Stop Date: 7/9/22 Status: Ordered phentermine hydrochloride 37.5 mg oral tablet (20 sources) Sympathomimetic Amine Anorectic Start: 04-25-2025 take 1 tablet by mouth once daily in the morning Start: 03-05-2025 End: 04-25-2025 take 0.5 tablet by mouth once daily in the morning Phentermine 37.5 mg tablet Discontinued 37.5 MG PO Daily March 05, 2025 12:00am April 25, 2025 12:22pm Take early AM to avoid insomnia. Take half tab days 1-7. Start: 10-07-2023 End: 01-25-2024 take 1 tablet by mouth once daily [...] Start: 05-26-2023 take 1 capsule by mo [facility] every twenty-four hours Phentermine HCl 37.5 MG 1 capsule Orally Once a day for 30 days May, Active Comment on above: Take 37.5 mg by mout h. [id number]-[id number] Fumarate-Fa () 28-800 mg-mcg Tablet (20 sources) Start: 12-29-2020 Dik612-Aepgftd Fumarate-Fa () 28-800 mg-mcg Tablet Active TAB PO December 29, 2020 3:43pm Start: 12-29-2020 End: 10-07-2023 Hnx055-Urytbfz Fumarate-Fa ( ) 28-800 mg-mcg Tablet Discontinued TAB PO December 28, 2020 11:00pm October 07, 2023 6:06pm Start: 12-29-2020 End: 10-07-2023 Pty468-Exzlbwx Fumarate-Fa ( ) 28-800 mg-mcg Tablet Discontinued TAB PO December 29, 2020 12:00am October 07, 2023 7:06pm Start: 12-29-2020 Tbq002-Eqhkdbb Fumarate-Fa () 28-800 mg-mcg Tablet Active TAB PO December 28, 2020 11:00pm Start: 12-29-2020 Pcn039-Jmvgpsb Fumarate-Fa () 28-800 mg-mcg Tablet Active TAB PO December 29, 2020 12:00am -mjmn fum-folic ac-o m3 (One Daily ) (20 sources) Start: 08-25-2024 Start: 08-25-2024 ymqttg66-obiu fum-folic ac-om3 (One Daily ) Active 1 PKG PO Daily August 25, 2024 1:10pm Complies with drug therapy Start: 08-25-2024 wkmicf23-xrvd fum-folic ac-om3 (One Daily ) Active 1 PKG PO Daily August 25, 2024 1:10pm Start: 08-25-2024 evjivp60-vwtf fum-folic ac-om3 (One Daily ) Active 1 PKG PO Daily August 25, 2024 12:10pm Start: 05-11-2024 End: 08-25-2024 yejquw87-emtc fum-folic ac-o m3 (One Daily ) Discontinued PO May 11, 2024 12:00am August 25, 2024 1:11pm Start: 05-11-2024 End: 08-25-2024 aixfqy96-infc fum-folic ac-o m3 (One Daily ) Discontinued PO May 10, 2024 11:00pm August 25, 2024 12:11pm Start: 05-11-2024 mkpkme07-advm fum-folic ac-om3 (One Daily ) Active PO May 10, 2024 11:00pm Start: 05-11-2024 hsfebh35-cibi fum-folic ac-om3 (One Daily ) Active PO May 11, 2024 12:00am MV-Min-Fe Fum-FA-DHA ( 1 PO) (20 sources) MV-Min- Fe Fum-FA-DHA ( 1 PO) Take 1 each by mouth Daily Active ge672-eqwt-lxgmn acid ( 19) 29 mg iron- 1 mg tablet,chewable (2 sources) xn634-xoom-tlzkm acid ( 19) 29 mg iron- 1 [...] End: 10-07-2023 Promethazine 12.5 mg tablet Discontinued December 29, 2020 12:00am October 07, 2023 7:06pm Start: 12-29-2020 End: 10-07-2023 Promethazine 12.5 mg tablet Discontinued TABLET December 29, 2020 12:00am October 07, 2023 7:06pm pyridoxine (4 sources) Start: 04-25-2025 Start: 04-25-2025 pyridoxine (vi tamin B6) Active PO April 25, 2025 12:00am Complies with drug therapy SUMAtriptan 50 mg oral tablet (4 sources) [...] (6 sources) Vitamin D3 OTC, daily Active Zuranolone (Zurzuvae) 25 MG capsule (3 sources) Start: 11-08-2024 End: 11-22-2024 take 2 capsules by mouth once daily Zuranolone (Zurzuvae) 25 MG capsule Indications: S/P section , Current moderate episode of major depressive disorder without prior episode (HCC) (CMS/HCC) Take 50 mg by mouth Daily for 14 days 28 capsule 11/08/2024 11/22/2024 Active Completed/Discontinued Medications Medication Drug Class(es) Dates Sig (Normalized) Sig (Original) aspirin 81 mg delayed release oral tablet (20 sources) Platelet Aggregation Inhibitor, Nonsteroidal Anti-inflammatory Drug Start: 05-11-2024 End: 01-22-2025 take 1 tablet by mouth once daily Aspirin 81 mg tablet,delayed release (DR/EC) Discontinued 81 MG PO Daily May 11, 2024 12:00am January 22, 2025 7:36am Start: 06-23-2021 take 1 mg by mouth e very four hours aspirin 81 mg oral capsule mg cap(s), Oral, q4hr, Refills(s) 0 Start Date: 06/23/21 Status: Ordered take 81 mg by mouth once daily A SPIRIN 81 PO Take 81 mg by mouth Daily Active drospirenone / Ethinyl Estradiol (20 sources) Progestin, Estrogen Start: 06-19-2022 take 1 tablet by mouth once daily Drospirenone-Ethinyl Estradiol 3-0.03 mg per tablet Take [...] source) Vitamin B12 cyanocobalamin/f olic acid (VITAMIN B83-PHSYL ACID) 1,000-400 mcg lozg Take by mouth every 24 hours. 0 Active Comment on above: Take by mouth every 24 hours. 3 ml liraglutide 6 mg/ml pen injector (5 sources) GLP-1 Receptor Agonist Start: Victoza 18 MG/3ML Week one- 0.6mg, Week two- 1.2mg, Week three on- 1.8mg Subcutaneous Daily for 30 days May, Not-Taking Magnesium Aspart,Citrate,Oxide 400 mg magnesium capsule (11 sources) Start: End: take 1 capsule by mouth once daily Magnesium Aspart,Citrate,Oxide 400 mg magnesium capsule Discontinued 400 MG PO Daily August 25, 2024 1:00am January 22, 2025 7:37am Start: 08-25-2024 take 1 capsule by [facility] once daily Magnesium Aspart,Citrate,Oxide 400 mg magnesium capsule Active 400 MG PO Daily August 25, 2024 1:00am Start: 08-25-2024 take 1 capsule by [facility] once daily Magnesium Aspart,Citrate,Oxide 400 mg magnesium capsule Active 400 MG PO Daily August 25, 2024 12:00am OZEMPIC 1 mg/dose (4 mg/3 mL) pen (4 sources) Start: 09-02-2022 inject 1 mg by subcutaneous injection every week OZEMPIC 1 mg/dose (4 mg/3 mL) pen Administer 1mg subcutaneously once weekly 0 09/02/2022 Active Comment on above: Administer 1mg subcutaneously once weekl y Vitamin (14 sources) Vitamin OTC Not-Taking Vitamin OTC Active 0.25 mg, 0.5 mg dose 1.5 ml semaglutide 1.34 mg/ml pen injector (20 sources) Start: 05-18-2022 End: 09-28-2022 Ozempic (0.25 or 0.5 MG/DOSE) 2 MG/1.5ML 0.25mg once weekly for 4 weeks, then 0.5mg once weekly for 4 weeks Subcutaneous Once Weekly for 28 days Jun, Not-Taking Comment on above: Inject subcutaneousl y. Semaglutide (6 sources) Start: 01-22-2025 End: 03-05-2025 Semaglutide (Ozempic) 0.25 mg or 0.5 mg (2 mg/3 mL) pen injector Discontinued 0.5 MG SUBCUT every week 3 January 22, 2025 12:00am March 05, 2025 8:38am 0.25mg once weekly for weeks 1-4 Start: 01-22-2025 Semaglutide (O zempic) 0.25 mg or 0.5 mg (2 mg/3 mL) pen injector Active 0.5 MG SUBCUT every week 3 January 22, 2025 12:00am 0.25mg once weekly for weeks 1-4 vitamin b12 1 mg oral tablet (3 [...] - normal night sleep; Translations: [Somnolence] Episodic Complications of surgical procedures or medical care (4 sources) Irritating sensation along suture line; Translations: [Other complications of procedures, not elsewhere classified, initial encounter] 11-15-2024 Episodic Esophageal disorders (20 sources) Gastroesophageal reflux disease without esophagitis; Translations: [Gastro-esophageal reflux disease without esophagitis] Onset: 4 Chronic Female infertility (2 sources) Female infertility; Translations: [Female infertility, unspecified] [...] status] Onset: 3 04-20-2024 Episodic Menstrual disorders (3 sources) Irregular periods; Translations: [Irregular menstruation, unspecified] Onset: 4 11-18-2023 Chronic Mood disorders (20 sources) Mild depression; Translations: [Major depressive disorder, single episode, unspecified] Chronic Nausea and vomiting (2 sources) Nausea with vomiting, unspecified; Translations: [Nausea and vomiting] Onset: 5 Episodic Nonspecific chest pain (2 sources) Atypical chest pain; Translations: [Other chest pain] Episodic Nutritional deficiencies (1 source) Vitamin D deficiency, unspecified; Translations: [Vitamin D deficiency, unspecified] Onset: 5 Chronic Other aftercare (1 source) Encounter for follow-up examination after completed treatment for conditions other than malignant neoplasm Episodic Other and ill-defined heart disease (16 sources) Cardiomegaly; Translations: [Mild left ventricular hypertrophy] Onset: 5 08-25-2024 Chronic Other and unspecified benign neoplasm (20 sources) Parathyroid adenoma; 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] Onset: 4 10-07-2023 Episodic Other and unspecified benign neoplasm (1 source) Benign neoplasm of parathyroid gland; 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] Onset: 5 Episodic Other circulatory disease (1 source) Personal [...] Translations: [Body mass index (BMI) 40.0-44.9, adult] 01-22-2025 Chronic Other nutritional; endocrine; and metabolic disorders (20 sources) Obese class II; Translations: [Body mass index (BMI) 39.0-39.9, adult] Onset: 4 Chronic Other nutritional; endocrine; and metabolic disorders (20 sources) Obesity, unspecified; Translations: [Obesity, unspecified] Chronic Other nutritional; endocrine; and metabolic disorders (2 sources) Body mass index (BMI) 39.0-39.9, adult Chronic Other nutritional; endocrine; and metabolic disorders (2 sources) Body mass index (BMI) 38.0-38.9, adult Chronic Other nutritional; endocrine; and metabolic disorders (1 source) Body mass index 30+ - obesity; Translations: [Body mass index (BMI) 38.0-38.9, adult] Chronic Other nutritional; endocrine; and metabolic disorders (20 sources) Drug-induced obesity; 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] 11-25-2023 Chronic Other nutritional; endocrine; and metabolic disorders (20 sources) Weight gain; Translations: [Abnormal weight gain] 03-12-2020 Episodic Other nutritional; endocrine; and metabolic disorders (1 source) Abnormal weight gain Episodic Other nutritional; endocrine; and metabolic disorders (14 sources) Weight increased; Translations: [Abnormal weight gain] [...] of care or not applicable] Onset: 07-11-2024 Resolved: 10-31-2024 07-11-2024 Episodic Other complications of (3 sources) [...] other endocrine, nutritional and metabolic disease] Onset: 09-21-2024 Episodic Other and delivery including normal (20 sources) Second trimester ; Translations: [Encounter for supervision of normal , unspecified, second trimester] Onset: 06-28-2024 Resolved: 10-31-2024 06-12-2024 Episodic Other screening for suspected conditions [...] [22 weeks gestation of ] Onset: 07-11-2024 Resolved: 10-31-2024 07-11-2024 Episodic Residual codes; unclassified (2 sources) [...] Test Name Value Interpretation Reference Range Facility Prolactinon 05-14-2025 Prolactin 8.50 ng/mL Normal 3.34-26.72 [facility] Comment on above: Result Comment: PERF ORMED BY: [place] [address] PATHOLOGIST ACUTE CARE NURSING ASSISTANT STACI DUNLAP M.D. Performed By: #### T SH3 #### [facility] [address] [place] [address] Prolactin [Mass/volume] in S ghada or PlasmaOrdered By: Darwin Jones on 05-14-2025 Prolactin [Mass/Vol] 8.50 ng/mL 3.34-26.72 [facility] Alanine aminotransferase [En zymatic activity/volume] in Serum or PlasmaOrdered By: Addi Ortega on 05-11-2025 ALT [Catalytic activity/Vol] 18 U/L Normal 7-52 [facility] Comment on above: Performed By: #### T SH3 #### [facility] [address] [place] [address] Albumin [Mass/volume] in Ser um or Plasma by Bromocresol green (BCG) dye binding methoOrdered By: Addi Ortega on 05-11-2025 Albumin BCG dye [Mass/Vol] 5.0 g/dL 3.5-5.7 [facility] Alkaline phosphatase [Enzyma tic activity/volume] in Serum or PlasmaOrdered By: Addi Ortega on 05-11-2025 ALP [Catalytic activity/Vol] 57 U/L Normal 34-104 [facility] Comment on above: Performed By: #### T SH3 #### [address] Aspartate aminotransferase [ Enzymatic activity/volume] in Serum or PlasmaOrdered By: Addi Ortega on 05-11-2025 AST [Catalytic activity/Vol] 14 U/L Normal 13-39 [facility] Comment on above: Performed By: #### T SH3 #### [address] Basophils [#/volume] in Bloo d by Automated countOrdered By: Addi Ortega on 05-11-2025 Basophils (Bld) [#/Vol] 0.0 10*3/uL Normal 0.0-0.2 [facility] Comment on above: Result Comment: PERF ORMED BY: [place] [address] PATHOLOGIST ACUTE CARE NURSING ASSISTANT STACI DUNLAP M.D. Performed By: #### T SH3 #### [address] Basophils/100 leukocytes in Blood by Automated countOrdered By: Addi Ortega on 05-11-2025 Basophils/100 WBC (Bld) 0.4 % Normal . [facility] Comment on above: Performed By: #### T SH3 #### [address] Bilirubin.total [Mass/volume ] in Serum or PlasmaOrdered By: Addi Ortega on 05-11-2025 Bilirubin [Mass/Vol] 0.6 mg/dL Normal 0.3-1.0 [facility] Comment on above: Performed By: #### T SH3 #### [place] [address] [place] Calcium [Mass/volume] in Ser um or PlasmaOrdered By: Addi Ortega on 05-11-2025 Calcium [Mass/Vol] 9.6 mg/dL Normal 8.6-10.3 [facility] Comment on above: Performed By: #### T SH3 #### [place] [address] [place] Carbon dioxide, total [Moles /volume] in Serum or PlasmaOrdered By: Addi Ortega on 05-11-2025 CO2 [Moles/Vol] 29.8 mmol/L Normal 21.0-31.[address] [facility] Comment on above: Performed By: #### T SH3 #### [facility] [address] [place] [address] [place] Chloride [Moles/volume] in S ghada or PlasmaOrdered By: Addi Ortega on 05-11-2025 Chloride [Moles/Vol] 102 mmol/L Normal 98-107 [facility] Comment on above: Performed By: #### T SH3 #### [facility] [address] [place] [address] [place] Cholesterol [Mass/volume] in Serum or PlasmaOrdered By: Addi Ortega on 05-11-2025 Cholesterol [Mass/Vol] 222 mg/dL High 140-200 [facility] Comment on above: Chol less than 200 m g/dl low riskChol 201-239 mg/dl borderline riskChol 240 mg/dl and greater high risk Result Comment: Chol less than 200 mg/dl low risk Chol 201-239 mg/dl borderline risk Chol 240 mg/dl and greater high risk Performed By: #### T SH3 #### [facility] [address] [place] [address] [place] Cholesterol in HDL [Mass/vol ume] in Serum or PlasmaOrdered By: Addi Ortega on 05-11-2025 Cholesterol in HDL [Mass/Vol] 50 mg/dL Normal 23-92 [facility] Comment on above: HDL CHOL ATP-III CLA SSIFICATION Cardiovascular RiskHDL > or equal to 60 mg/dL LOWHDL < 40 mg/dL HIGH Result Comment: HDL CHOL ATP-III CLASSIFICATION Cardiovascular Risk HDL > or equal to 60 mg/dL LOW HDL < 40 mg/dL HIGH Performed By: #### T SH3 #### [facility] [address] [place] [address] [place] Cholesterol in LDL Calc [Mas s/Vol]Ordered By: Addi Ortega on 05-11-2025 Cholesterol in LDL [Mass/Vol] 150 mg/dL High 0-100 [facility] Comment on above: LDL ATP III CLASSIFI CATIONLDL less than 100 mg/dL OptimalLDL 100-129 mg/dL Near or above optimalLDL 130-159 mg/dL Borderline highLDL 160-189 mg/dL HighLDL greater than 189 mg/dL Very high Cholesterol in VLDL Calc [Ma ss/Vol]Ordered By: Addi Ortega on 05-11-2025 Cholesterol in VLDL [Mass/Vol] 21 mg/dL [facility] Creatinine [Mass/volume] in Serum or PlasmaOrdered By: Addi Ortega on 05-11-2025 Creatinine [Mass/Vol] 0.70 mg/dL Normal 0.60-1.20 [facility] Comment on above: Performed By: #### T SH3 #### [address] Employee Comp Metabolic Pane samy 05-11-2025 Albumin [Mass/Vol] 5.0 g/dL Normal 3.5-5.7 [facility] Comment on above: Performed By: #### T SH3 #### [address] GFR/1.73 sq M.predicted MDRD (S/P/Bld) [Vol rate/Area] mL/min/{1.73_m2} Normal [facility] Comment on above: Performed By: #### T SH3 #### [address] Employee Complete Blood Coun ton 05-11-2025 Mean Corpuscular HGB Conc 34.5 g/dL Normal 32.0-35.0 [facility] Comment on above: Performed By: #### T SH3 #### [address] NRBC% 0.2 /100{WBC} Normal 0-0.5 [facility] Comment on above: Performed By: #### T SH3 #### [address] White Blood Count 6.8 [CFU]/mL Normal 3.8-11.6 [facility] Comment on above: Performed By: #### T SH3 #### [address] Employee Lipid Profileon LDL Cholesterol,Calculate d 150 mg/dL High 0-100 [facility] Comment on above: Result Comment: LDL ATP III CLASSIFICATION LDL less than 100 mg/dL Optimal LDL 100-129 mg/dL Near or above optimal LDL 130-159 mg/dL Borderline high LDL 160-189 mg/dL High LDL greater than 189 mg/dL Very high Performed By: #### T SH3 #### [address] Triglyceride w/Reflex 109 mg/dL Normal 0-149 [facility] Comment on above: Result Comment: TRIG ATP III CLASSIFICATION TRIG less than 150 mg/dL Normal TRIG 150-199 mg/dL Borderline high TRIG 200-500 mg/dL High TRIG greater than 500 mg/dL Very high Standard traceable to the Center for Disease Conrtrol and Prevention (CDC) test method. Performed By: #### T SH3 #### [address] VLDL CHOLESTEROL 21 mg/dL Normal [facility] Comment on above: Performed By: #### T SH3 #### [address] Eosinophils [#/volume] in Bl ood by Automated countOrdered By: Addi Ortega on 05-11-2025 Eosinophils (Bld) [#/Vol] 0.1 10*3/uL Normal 0.0-0.45 [facility] Comment on above: Performed By: #### T SH3 #### [address] Eosinophils/100 leukocytes i n Blood by Automated countOrdered By: Addi Ortega on 05-11-2025 Eosinophils/100 WBC (Bld) 1.7 % Normal . [facility] Comment on above: Performed By: #### T SH3 #### [address] Erythrocyte distribution wid th [Ratio] by Automated countOrdered By: Addi Ortega on 05-11-2025 Erythrocyte distribution width (RBC) [Ratio] 14.3 % Normal 11.9-15.3 [facility] Comment on above: Performed By: #### T SH3 #### [address] Erythrocytes [#/volume] in B lood by Automated countOrdered By: Addi Ortega on 05-11-2025 RBC (Bld) [#/Vol] 4.40 10*6/uL Normal 3.60-5.00 [facility] Comment on above: Performed By: #### T SH3 #### [address] Glomerular filtration rate [ Volume Rate/Area] in Serum, Plasma or Blood by CreatinineOrdered By: Addi Ortega on 05-11-2025 Glomerular filtration rate [Volume Rate/Area] in Serum, Plasma or Blood by Creatinine > 60.0 mL/Min [facility] Glucose [Mass/volume] in Ser um or PlasmaOrdered By: Addi Ortega on 05-11-2025 Glucose [Mass/Vol] 94 mg/dL Normal 70-100 [facility] Comment on above: Performed By: #### T SH3 #### [address] Hematocrit [Volume Fraction] of Blood by Automated countOrdered By: Addi Ortega on 05-11-2025 Hematocrit (Bld) [Volume fraction] 39.5 % Normal 34.0-46.4 [facility] Comment on above: Performed By: #### T SH3 #### [address] Hemoglobin [Mass/volume] in BloodOrdered By: Addi Ortega on 05-11-2025 Hemoglobin (Bld) [Mass/Vol] 13.6 g/dL Normal 11.8-15.4 [facility] Comment on above: Performed By: #### T SH3 #### [address] Leukocytes [#/volume] correc hamilton for nucleated erythrocytes in Blood by Automated counOrdered By: Addi Ortega on 05-11-2025 WBC corrected for nucl RBC Auto (Bld) [#/Vol] 6.8 10*3/uL 3.8-11.6 [facility] Leukocytes [#/volume] in Blo od by Automated countOrdered By: Addi Ortega on 05-11-2025 WBC (Bld) [#/Vol] 6.8 10*3/uL Normal 3.8-11.6 [facility] Comment on above: Performed By: #### T SH3 #### [address] Lymphocytes [#/volume] in Bl ood by Automated countOrdered By: Addi Ortega on 05-11-2025 Lymphocytes (Bld) [#/Vol] 2.8 10*3/uL Normal 1.00-4.8 [facility] Comment on above: Performed By: #### T SH3 #### [address] Lymphocytes/100 leukocytes i n Blood by Automated countOrdered By: Addi Ortega on 05-11-2025 Lymphocytes/100 WBC (Bld) 41.5 % Normal . [facility] Comment on above: Performed By: #### T SH3 #### [address] MCH [Entitic mass] by Automa hamilton countOrdered By: Addi Ortega on 05-11-2025 MCH (RBC) [Entitic mass] 31.0 pg Normal 24.7-34.3 [facility] Comment on above: Performed By: #### T SH3 #### [address] MCHC Auto (RBC) [Mass/Vol]Or dered By: Addi Ortega on 05-11-2025 MCHC (RBC) [Mass/Vol] 34.5 g/dL 32.0-35.0 [facility] MCV [Entitic volume] by Auto mated countOrdered By: Addi Ortega on 05-11-2025 MCV (RBC) [Entitic vol] 89.8 fL Normal 80-100 [facility] Comment on above: Performed By: #### T SH3 #### [place] [address] [place] Monocytes [#/volume] in Bloo d by Automated countOrdered By: Addi Ortega on 05-11-2025 Monocytes (Bld) [#/Vol] 0.4 10*3/uL Normal 0.0-0.8 [facility] Comment on above: Performed By: #### T SH3 #### [address] Monocytes/100 leukocytes in Blood by Automated countOrdered By: Addi Ortega on 05-11-2025 Monocytes/100 WBC (Bld) 6.3 % Normal . [facility] Comment on above: Performed By: #### T SH3 #### [address] Neutrophils [#/volume] in Bl ood by Automated countOrdered By: Addi Ortega on 05-11-2025 Neutrophils (Bld) [#/Vol] 3.4 10*3/uL Normal 1.8-7.7 [facility] Comment on above: Performed By: #### T SH3 #### [address] Neutrophils/100 leukocytes i n Blood by Automated countOrdered By: Addi Ortega on 05-11-2025 Neutrophils/100 WBC (Bld) 50.1 % Normal . [facility] Comment on above: Performed By: #### T SH3 #### [address] No Panel InformationOrdered By: Addi Ortega on 05-11-2025 Pharmacy Creatinine Clearance (Chem N/A [facility] Nucleated erythrocytes [Pres ence] in Blood by Automated countOrdered By: Addi Ortega on 05-11-2025 Nucleated RBC Auto Ql (Bld) 0.2 /100{WBC} 0-0.5 [facility] Platelet mean volume [Entiti c volume] in Blood by Automated countOrdered By: Addi Ortega on 05-11-2025 Platelet mean volume (Bld) [Entitic vol] 8.0 fL Normal 6.3-10.7 [facility] Comment on above: Performed By: #### T SH3 #### [facility] [address] Platelets [#/volume] in Bloo d by Automated countOrdered By: Addi Ortega on 05-11-2025 Platelets (Bld) [#/Vol] 380 10*3/uL Normal 150-450 [facility] Comment on above: Performed By: #### T SH3 #### [address] Potassium [Moles/volume] in Serum or PlasmaOrdered By: Addi Ortega on 05-11-2025 Potassium [Moles/Vol] 4.3 mmol/L Normal 3.5-5.1 [facility] Comment on above: Performed By: #### T SH3 #### [address] Protein [Mass/volume] in Ser um or PlasmaOrdered By: Addi Ortega on 05-11-2025 Protein [Mass/Vol] 7.6 g/dL Normal 6.4-8.9 [facility] Comment on above: Performed By: #### T SH3 #### [address] Serum globulin measurement b y calculation (mass/volume)Ordered By: Addi Ortega on 05-11-2025 Globulin (S) [Mass/Vol] 2.6 g/dL [facility] Comment on above: Performed By: #### T SH3 #### [address] Serum or plasma albumin/glob ulin mass ratioOrdered By: Addi Ortega on 05-11-2025 Albumin/Globulin [Mass ratio] 1.9 {ratio} [facility] Comment on above: Performed By: #### T SH3 #### [address] Serum or plasma anion gap de terminationOrdered By: Addi Ortega on 05-11-2025 Anion gap [Moles/Vol] 10.5 mmol/L Normal 6.0-15.0 [facility] Comment on above: Performed By: #### T SH3 #### [address] [place] [address] [facility] Serum or plasma thyroglobuli n antibody assay (units/volume)Ordered By: Ofelia Hester on 05-11-2025 Thyroglobulin Ab Qn 1019.2 [IU]/mL High 0.0-0.9 [facility] Comment on above: Thyroglobulin Antibo dy measured by Nathen MedPageTodayMethodologyIt should be noted that the presence of thyroglobulinantibodies may not be pathogenic nor diagnostic, especiallyat very low levels. The assay oracle soa architect has found thatfour percent of individuals without evidence of thyroiddisease or autoimmunity will have positive TgAb levels upto 4 IU/mL.Performed at: [facility] [id number] Director: Alexis Ashton PhD, Phone: [phone] Serum or plasma thyroperoxid ase antibody assay (units/volume)Ordered By: Ofelia Hester on 05-11-2025 TPO Ab Qn 299 [IU]/mL High 0-34 [facility] Serum or plasma total choles terol/high density lipoprotein (HDL) cholesterol mass ratOrdered By: Addi Ortega on 05-11-2025 Cholesterol.total/Cho lesterol in HDL [Mass ratio] 4.4 {ratio} Normal <5.0 [facility] Comment on above: Result Comment: PERF ORMED BY: [place] [address] PATHOLOGIST ACUTE CARE NURSING ASSISTANT STACI DUNLAP M.D. Performed By: #### T SH3 #### [facility] [address] Sodium [Moles/volume] in Ser um or PlasmaOrdered By: Addi Ortega on 05-11-2025 Sodium [Moles/Vol] 138 mmol/L Normal 136-145 [facility] Comment on above: Performed By: #### T SH3 #### [facility] [address] Thyroid Antibodies TPO+Tg Ab on 05-11-2025 Antithyroglobulin Ab 1019.2 Normal 0.0-0.9 [facility] Comment on above: Result Comment: Thyr oglobulin Antibody measured by [employer] Methodology It should be noted that the presence of thyroglobulin antibodies may not be pathogenic nor diagnostic, especially at very low levels. The assay oracle soa architect has found that four percent of individuals without evidence of thyroid disease or autoimmunity will have positive TgAb levels up to 4 IU/mL. Performed at: [address] [id number] [place]: Alexis Ashton PhD, Phone: [phone] PERFORMED BY: [place] [address] PATHOLOGIST ACUTE CARE NURSING ASSISTANT STACI DUNLAP M.D. Performed By: #### T SH3 #### [address] Thyroid Peroxidase Antibodies 299 Normal 0-34 [facility] Comment on above: Performed By: #### T SH3 #### [address] Thyrotropin [Units/volume] i n Serum or PlasmaOrdered By: Ofelia Hester on 05-11-2025 TSH Qn 54.61 m[IU]/L High 0.45-5.33 [facility] Comment on above: Performed By: #### V [id number], TSH3, T4F, B12 #### [address] #### THY AB #### [facility] , Thyroxine (T4) free [Mass/vo lume] in Serum or PlasmaOrdered By: Ofelia Hester on 05-11-2025 Free T4 [Mass/Vol] 0.67 ng/dL Normal 0.61-1.12 [facility] Comment on above: Performed By: #### V [id number], TSH3, T4F, B12 #### [place] [address] [place] #### THY AB #### [facility] , Triglyceride [Mass/volume] i n Serum or PlasmaOrdered By: Addi Ortega on 05-11-2025 Triglyceride [Mass/Vol] 109 mg/dL 0-149 [facility] Comment on above: TRIG ATP III CLASSIF ICATIONTRIG less than 150 mg/dL NormalTRIG 150-199 mg/dL Borderline highTRIG 200-500 mg/dL High TRIG greater than 500 mg/dL Very highStandard traceable to the Center for Disease Conrtrol and Prevention (CDC) test method. Triiodothyronine (T3) Freeon 05-11-2025 Triiodothyronine (T3) Free 4.62 pg/mL High 2.50-3.90 [facility] Comment on above: Result Comment: PERF ORMED BY: [place] [address] PATHOLOGIST ACUTE CARE NURSING ASSISTANT STACI DUNLAP M.D. Performed By: #### T SH3 #### [address] Triiodothyronine (T3) Free [ Mass/volume] in Serum or PlasmaOrdered By: Ofelia Hester on 05-11-2025 Free T3 [Mass/Vol] 4.62 pg/mL High 2.50-3.90 [facility] Triiodothyronine (T3) Revers gokul 05-11-2025 Triiodothyronine (T3) Reverse 10.0 ng/dL Normal 9.2-24.1 [facility] Comment on above: Result Comment: This test was developed and its performance characteristics determined by [facility]. It has not been cleared or approved by the Food and Drug Administration. Performed at: - [facility] [id number] [place]: Catherine Mendoza MD, Phone: [phone] PERFORMED BY: [place] [address] PATHOLOGIST ACUTE CARE NURSING ASSISTANT STACI DUNLAP M.D. Performed By: #### T SH3 #### [facility] [address] [place] [address] [facility] Urea nitrogen [Mass/volume] in Serum or PlasmaOrdered By: Addi Ortega on 05-11-2025 Urea nitrogen [Mass/Vol] 15 mg/dL Normal 7-25 [facility] Comment on above: Performed By: #### T SH3 #### [address] Vitamin B12 ser/plasOrdered By: Ofelia Hester on 05-11-2025 Cobalamin (Vitamin B12) [Mass/Vol] 809 pg/mL Normal 180-914 [facility] Comment on above: Performed By: #### V [id number], TSH3, T4F, B12 #### [facility] [address] [place] [address] #### THY AB #### [facility] , Vitamin D 25 Hydroxy Totalon 05-11-2025 Vitamin D 25 Hydroxy Total 20.0 ng/mL Low 30-100 [facility] Comment on above: Result Comment: JANE MIN D STATUS 25([place])VITAMIN D RANGE (ng/mL) Deficient <20 Insufficient 20 to <30 Sufficient 30 to 100 Reference: Artie Travis, Jacinta JEFFERSON, et al. Evaluation,treatment, and prevention of vitamin D deficiency; an Endocrine Society clinical practice guideline. JCEM. 2010; 96(7):1911-30. PERFORMED BY: [place] [address] PATHOLOGIST ACUTE CARE NURSING ASSISTANT STACI DUNLAP M.D. Performed By: #### T SH3 #### [address] Vitamin D+Metabolites [Mass/ volume] in Serum or PlasmaOrdered By: Ofelia Hester on 05-11-2025 Vitamin D+Metabolites [Mass/Vol] 20.0 ng/mL Low 30-100 [facility] Comment on above: VITAMIN D STATUS 25( [place])VITAMIN D RANGE (ng/mL) Deficient <20 Insufficient 20 to <30Sufficient 30 to 100Reference: Artie Travis, Jacinta JEFFERSON, et al. Evaluation,treatment, and prevention of vitamin D deficiency; an Endocrine Society clinical practice guideline. JCEM. 2010; 96(7):1911-30. Thyroid Stim Hormone w/Rflxo n 01-25-2025 Thyroid Stim Hormone w/Rflx 2.60 u[iU]/mL Normal 0.45-5.33 [facility] Comment on above: Result Comment: PERF ORMED BY: [address] [place] [address] PATHOLOGIST ACUTE CARE NURSING ASSISTANT STACI DUNLAP M.D. Performed By: #### T SH3 [id number] #### [facility] [address] Thyrotropin [Units/volume] i n Serum or PlasmaOrdered By: Darwin Jones on 01-25-2025 TSH Qn 2.60 m[IU]/L 0.45-5.33 [facility] HCG ( test) Ql (U)o n 12-13-2024 Interpretation and review of laboratory results Normal [facility] Preg Test, Ur Negative Negative [facility] No Panel Informationon 12-13 [facility] Urinalysis macro (dipstick) panel (U)on 12-13-2024 Bilirubin, UA Negative Negative - 4(70) +++ mg/dL [facility] Blood, UA Positive Negative - 50 Dain/mcL [facility] Comment on above: small Clarity, UA Clear [facility] Color, UA Yellow [facility] Glucose, UA Positive Negative - 1999(110) ++++ mg/dL [facility] Comment on above: 100 Interpretation and review of laboratory results Abnormal [facility] Ketones, UA Negative Negative - 160(16) ++++ mg/dL [facility] Leukocytes, UA Trace Negative - 500+++ Chaparrita/mcL [facility] Nitrite, UA Negative Negative - Positive [facility] pH, UA 6 5 - 9 [facility] Protein, UA Negative Negative - 2000(20) ++++ mg/dL [facility] Spec Grav, UA 1.03 1 - 1.03 [facility] Urobilinogen, UA 0.2 0.2 - 12 mg/dL [facility] Thyrotropin [Units/volume] i n Serum or Plasmaon 11-09-2024 TSH Qn Thyrotropin [Units/v olume] in Serum or Plasma 0.45-5.33 [facility] Thyroxine (T4) [Mass/volume] in Serum or Plasmaon 11-09-2024 T4 [Mass/Vol] Thyroxine (T4) [Mass/volume] in Serum or Plasma High 5.39-11.82 [facility] Basophils Auto (Bld) [#/Vol] on 11-01-2024 Basophils (Bld) [#/Vol] Automated basophil count 0.0-0.1 [facility] Basophils/100 WBC Auto (Bld) on 11-01-2024 Basophils/100 WBC (Bld) Automated basophil % 0.2-2.0 [facility] Eosinophils/100 WBC Auto (Bl d)on 11-01-2024 Eosinophils/100 WBC (Bld) Automated eosinophil % Low 0.9-7.0 [facility] Erythrocyte distribution wid th Auto (RBC) [Ratio]on 11-01-2024 Erythrocyte distribution width (RBC) [Ratio] Erythrocyte distribution width [Ratio] by Automated count 11.0-15.0 [facility] Hematocrit Auto (Bld) [Volum e fraction]on 11-01-2024 Hematocrit (Bld) [Volume fraction] Hematocrit [Volume Fraction] of Blood by Automated count Low 36.0-48.0 [facility] Hemoglobin [Mass/volume] in Bloodon 11-01-2024 Hemoglobin (Bld) [Mass/Vol] Hemoglobin [Mass/volume] in Blood Low 12.0-16.0 [facility] Laboratory - Hematology and Cell countson 11-01-2024 Immature granulocytes/100 WBC (Bld) 0.5 % 0.0-0.5 [facility] Leukocytes [#/volume] correc hamilton for nucleated erythrocytes in Blood by Automated counon 11-01-2024 WBC corrected for nucl RBC Auto (Bld) [#/Vol] Leukocytes [#/volume] corrected for nucleated erythrocytes in Blood by Automated coun High 4.0-11.0 [facility] Lymphocytes Auto (Bld) [#/Vo l]on 11-01-2024 Lymphocytes (Bld) [#/Vol] Lymphocytes [#/volume] in Blood by Automated count 1.2-3.8 [facility] Lymphocytes/100 WBC Auto (Bl d)on 11-01-2024 Lymphocytes/100 WBC (Bld) Lymphocytes/100 leukocytes in Blood by Automated count Low 20.5-60.0 [facility] MCH Auto (RBC) [Entitic mass ]on 11-01-2024 MCH (RBC) [Entitic mass] MCH [Entitic mass] by Automated count 26.7-34.0 [facility] MCHC Auto (RBC) [Mass/Vol]on 11-01-2024 MCHC (RBC) [Mass/Vol] MCHC [Mass/volume] by Automated count 29.9-35.2 [facility] MCV Auto (RBC) [Entitic vol] on 11-01-2024 MCV (RBC) [Entitic vol] MCV [Entitic volume] by Automated count 81.0-99.0 [facility] Monocytes Auto (Bld) [#/Vol] on 11-01-2024 Monocytes (Bld) [#/Vol] Automated blood monocyte count High 0.3-0.8 [facility] Monocytes/100 WBC Auto (Bld) on 11-01-2024 Monocytes/100 WBC (Bld) Automated monocyte % 1.7-12.0 [facility] Neutrophils Auto (Bld) [#/Vo l]on 11-01-2024 Neutrophils (Bld) [#/Vol] Neutrophils [#/volume] in Blood by Automated count High 1.4-6.5 [facility] Neutrophils/100 WBC Auto (Bl d)on 11-01-2024 Neutrophils/100 WBC (Bld) Automated neutrophil % High 43.0-75.0 [facility] No Panel Informationon 11-01 Eosinophils # (Auto) 0.0 10 3/uL 0.0-0.7 [facility] Immature Granulocyte # (Auto) 0.07 10 3/uL High 0.00-0.03 [facility] Platelet mean volume Auto (B ld) [Entitic vol]on 11-01-2024 Platelet mean volume (Bld) [Entitic vol] Platelet mean volume [Entitic volume] in Blood by Automated count 9.5-13.5 [facility] Platelets Auto (Bld) [#/Vol] on 11-01-2024 Platelets (Bld) [#/Vol] Platelets [#/volume] in Blood by Automated count 150-450 [facility] RBC Auto (Bld) [#/Vol]on RBC (Bld) [#/Vol] Erythrocytes [#/volu me] in Blood by Automated count Low 4.20-5.40 [facility] Basophils Auto (Bld) [#/Vol] on 10-31-2024 Basophils (Bld) [#/Vol] Automated basophil count 0.0-0.1 [facility] Basophils/100 WBC Auto (Bld) on 10-31-2024 Basophils/100 WBC (Bld) Automated basophil % Low 0.2-2.0 [facility] Buprenorphine [Presence] in Urineon 10-31-2024 Buprenorphine Ql (U) Buprenorphine [Pres ence] in Urine NEGATIVE [facility] Comment on above: DRUG CLASS TEST SYST EM CUT-OFF CONCENTRATIONS ARE ASFOLLOWS:AMP (Amphetamine): 500 ng/mLBAR (Barbiturates): 200 ng/mLBZO (Benzodiazepines): 150 ng/mLBUP (Buprenorphine): 10 ng/mLCOC (Cocaine): 150 ng/mLmAMP (Methamphetamine): 500 ng/mLMTD (Methadone): 200 ng/mLOPI (Opiates): 100 ng/mLOXY (Oxycodone): 100 ng/mLPCP (Phencyclidine): 25 ng/mLTHC (Cannabinoids): 50 ng/mLTCA (Trycyclic Antidepressants): 300 ng/mL Eosinophils/100 WBC Auto (Bl d)on 10-31-2024 Eosinophils/100 WBC (Bld) Automated eosinophil % Low 0.9-7.0 [facility] Erythrocyte distribution wid th Auto (RBC) [Ratio]on 10-31-2024 Erythrocyte distribution width (RBC) [Ratio] Erythrocyte distribution width [Ratio] by Automated count 11.0-15.0 [facility] Hematocrit Auto (Bld) [Volum e fraction]on 10-31-2024 Hematocrit (Bld) [Volume fraction] Hematocrit [Volume Fraction] of Blood by Automated count Low 36.0-48.0 [facility] Hemoglobin [Mass/volume] in Bloodon 10-31-2024 Hemoglobin (Bld) [Mass/Vol] Hemoglobin [Mass/volume] in Blood Low 12.0-16.0 [facility] Laboratory - Drug toxicology on 10-31-2024 Amphetamines Ql (U) Negative NEGATIVE [facility] Benzodiazepines Ql (U) Negative NEGATIVE [facility] Cocaine Ql (U) Negative NEGATIVE [facility] Opiates Ql (U) Negative NEGATIVE [facility] Phencyclidine Ql (U) Negative NEGATIVE [facility] Laboratory - Hematology and Cell countson 10-31-2024 Immature granulocytes/100 WBC (Bld) 0.3 % 0.0-0.5 [facility] Laboratory - Urinalysison Mucus Ql (Urine sed) SMALL Abnormal NONE SEEN [facility] Leukocytes [#/volume] correc hamilton for nucleated erythrocytes in Blood by Automated counon 10-31-2024 WBC corrected for nucl RBC Auto (Bld) [#/Vol] Leukocytes [#/volume] corrected for nucleated erythrocytes in Blood by Automated coun 4.0-11.0 [facility] Lymphocytes Auto (Bld) [#/Vo l]on 10-31-2024 Lymphocytes (Bld) [#/Vol] Lymphocytes [#/volume] in Blood by Automated count 1.2-3.8 [facility] Lymphocytes/100 WBC Auto (Bl d)on 10-31-2024 Lymphocytes/100 WBC (Bld) Lymphocytes/100 leukocytes in Blood by Automated count 20.5-60.0 [facility] MCH Auto (RBC) [Entitic mass ]on 10-31-2024 MCH (RBC) [Entitic mass] MCH [Entitic mass] by Automated count 26.7-34.0 [facility] MCHC Auto (RBC) [Mass/Vol]on 10-31-2024 MCHC (RBC) [Mass/Vol] MCHC [Mass/volume] by Automated count 29.9-35.2 [facility] MCV Auto (RBC) [Entitic vol] on 10-31-2024 MCV (RBC) [Entitic vol] MCV [Entitic volume] by Automated count 81.0-99.0 [facility] Methadone [Presence] in Urin e by Screen methodon 10-31-2024 Methadone Screen Ql (U) Methadone [Presence] in Urine by Screen method NEGATIVE [facility] Monocytes Auto (Bld) [#/Vol] on 10-31-2024 Monocytes (Bld) [#/Vol] Automated blood monocyte count 0.3-0.8 [facility] Monocytes/100 WBC Auto (Bld) on 10-31-2024 Monocytes/100 WBC (Bld) Automated monocyte % 1.7-12.0 [facility] Neutrophils Auto (Bld) [#/Vo l]on 10-31-2024 Neutrophils (Bld) [#/Vol] Neutrophils [#/volume] in Blood by Automated count 1.4-6.5 [facility] Neutrophils/100 WBC Auto (Bl d)on 10-31-2024 Neutrophils/100 WBC (Bld) Automated neutrophil % 43.0-75.0 [facility] No Panel Informationon 10-31 Eosinophils # (Auto) 0.0 10 3/uL 0.0-0.7 [facility] Immature Granulocyte # (Auto) 0.03 10 3/uL 0.00-0.03 [facility] Urine Bacteria TRACE #/HPF Abnormal NONE SEEN [facility] Urine Barbiturates Screen Negative NEGATIVE [facility] Urine Culture Reflexed NO [facility] Urine Marijuana (THC) Screen Negative NEGATIVE [facility] Urine Methamphetamines Screen Negative NEGATIVE [facility] Urine Other Casts NONE SEEN #/LPF NONE SEEN [facility] U[facility] Other Crystals None Seen #/HPF None Seen [facility] Urine RBC 0-2 #/HPF 0-2 [facility] Urine Squamous Epithelial Cells FEW #/LPF Abnormal NONE/RARE [facility] Urine WBC 2-5 #/HPF Abnormal NONE SEEN [facility] Platelet mean volume Auto (B ld) [Entitic vol]on 10-31-2024 Platelet mean volume (Bld) [Entitic vol] Platelet mean volume [Entitic volume] in Blood by Automated count 9.5-13.5 [facility] Platelets Auto (Bld) [#/Vol] on 10-31-2024 Platelets (Bld) [#/Vol] Platelets [#/volume] in Blood by Automated count 150-450 [facility] RBC Auto (Bld) [#/Vol]on RBC (Bld) [#/Vol] Erythrocytes [#/volu me] in Blood by Automated count Low 4.20-5.40 [facility] Urine tricyclic antidepressa nt measurementon 10-31-2024 Tricyclic antidepressants (U) [Mass/Vol] Urine tricyclic antidepressant measurement NEGATIVE [facility] oxyCODONE+oxyMORphone [Prese nce] in Urine by Screen methodon 10-31-2024 oxyCODONE+oxyMORphone Screen Ql (U) oxyCODONE+oxyMORphone [Presence] in Urine by Screen method NEGATIVE [facility] US OB BPP W NON-STRESS on 10-26-2024 [place] [address] Ultrasound Report Signed Patient: TAWNYA HERRING MR#: [id number] : 1995 Acct:[id number] Age/Sex: 29 / F ADM Date: 10/26/24 Loc: US Attending Dr: Brain Way D.O. Ordering Physician: Brain Way D.O. Date of Service: 10/26/24 Procedure(s): US OB BPP w non-stress Accession Number(s): [id number] cc: Darwin Jones COUNTRY PRINTER APPRENTICE; Brain [address] D.O. [place] [id number] Patient Name: TAWNYA HERRING MRN: [facility]:[id number] date: 1995 Sex: F Assigned Patient Location: [facility] Current Patient Location: Accession/Order Number: [id number] Exam Date: 10/26/2024 09:50 Report Date: 10/26/2024 09:53 At the request of: BRAIN WAY DO Procedure: US OB BPP w non-stress BIOPHYSICAL PROFILE: CLINICAL INFORMATION: Excessive growth COMPARISON: 10/21/2024 There is a single live intrauterine gestation in cephalic presentation. The reported gestational age is 38 weeks 1 day. The heart rate [id number] beats per minute. FINDINGS: TONE: 1 or [...] Aleisha Tapia M.D.10/26/2024 9:53 AM Dictation Location: [place] [address] Electronically authenticated by: [id number] Y Date: 10/26/2024 09:53 Dictated By: Aleisha Tapia M.D. Signed By: 10/26/24954 DD/ 2 TD/TT: Stripper And Printer: [facility] Radiology, Radiologi MD diane - 10/26/2024 [place] [address] Ultrasound Report Signed Patient: TAWNYA HERRING MR#: [id number] : 1995 Acct:[id number] Age/Sex: 29 / F ADM Date: 10/26/24 Loc: US Attending Dr: Brain Way D.O. Ordering Physician: Brain Way D.O. Date of Service: 10/26/24 Procedure(s): US OB BPP w non-stress Accession Number(s): [id number] cc: Darwin Jones COUNTRY PRINTER APPRENTICE; Brain Way D.O. [place] [id number] Patient Name: TAWNYA HERRING MRN: [facility]:[id number] date: 1995 Sex: F Assigned Patient Location: [facility] Current Patient Location: Accession/Order Number: [id number] Exam Date: 10/26/2024 09:50 Report Date: 10/26/2024 09:53 At the request of: BRAIN WAY DO Procedure: US OB BPP w non-stress BIOPHYSICAL PROFILE: CLINICAL INFORMATION: Excessive growth COMPARISON: 10/21/2024 There is a single live intrauterine gestation in cephalic presentation. The reported gestational age is 38 weeks 1 day. The heart rate [id number] beats per minute. FINDINGS: TONE: 1 or [...] Aleisha Tapia M.D.10/26/2024 9:53 AM Dictation Location: [place] [address] Electronically authenticated by: [id number] Y Date: 10/26/2024 09:53 Dictated By: Aleisha Tapia M.D. Signed By: 10/26/24 0955 DD/ 0953 TD/TT: Stripper And Printer: [facility] Radiology Study observation (narrative) [facility] OB BPP W NON-STRESS Ordered By: Radiologist Radiology on 10-26-2024 [facility] Work Phone: Urinalysis macro (dipstick) panel (U)on 10-26-2024 Bilirubin, UA Negative Negative - 4(70) +++ mg/dL [facility] Blood, UA Positive Negative - 50 Dain/mcL [facility] Comment on above: trace-intact Clarity, UA Clear [facility] Color, UA Wendy [facility] Glucose, UA Negative Negative - 2000(110) ++++ mg/dL [facility] Interpretation and review of laboratory results Abnormal [facility] Ketones, UA Positive Negative - 160(16) ++++ mg/dL [facility] Comment on above: trace Leukocytes, UA Positive Negative - 500+++ Chaparrita/mcL [facility] Comment on above: small Nitrite, UA Negative Negative - Positive [facility] pH, UA 6.5 5 - 9 [facility] Protein, UA Trace Negative - 1999(20) ++++ mg/dL [facility] Spec Grav, UA 1.025 1 - 1.03 [facility] Urobilinogen, UA 0.2 0.2 - 12 mg/dL [facility] Urinalysis macro (dipstick) panel (U)on 10-18-2024 Bilirubin, UA Negative Negative - 4(70) +++ mg/dL [facility] Blood, UA Positive Negative - 50 Dain/mcL [facility] Comment on above: small Clarity, UA Clear [facility] Color, UA Straw [facility] Glucose, UA Negative Negative - 1999(110) ++++ mg/dL [facility] Interpretation and review of laboratory results Abnormal [facility] Ketones, UA Negative Negative - 160(16) ++++ mg/dL [facility] Leukocytes, UA Positive Negative - 500+++ Chaparrita/mcL [facility] Comment on above: small Nitrite, UA Negative Negative - Positive [facility] pH, UA 7 5 - 9 [facility] Protein, UA Trace Negative - 1999(20) ++++ mg/dL [facility] Spec Grav, UA 1.02 1 - 1.03 [facility] Urobilinogen, UA 0.2 0.2 - 12 mg/dL [facility] ALL MISCELLANEOUS TESTon MISCELLANEOUS TEST COMMENT . [facility] Comment on above: Test Ordered: [id number] Strep Gp B Culture+Rflx Strep Gp B Culture+Rflx Negative CB Reference Range: Negative Centers for Disease Control and Prevention (CDC) and [place] Congress of Obstetricians and Gynecologists (ACOG) guidelines [...] resistance to clindamycin is noted. Performed at: [address] [id number] [place]: Alexis Ashton PhD, Phone: [phone] GBS CX WITH SUSEPTIBILITY CLINISYNC [facility] Ambulatory Visit Summaryon 0 10-14-2024 Ambulatory Visit Summary Ambulatory Visit Summary TAWNYA HERRING :1995 Visit Date:10/14/2024 Ambulatory Visit Instructions Your Diagnosis Acute pharyngitis, Sore throat Exposure to strep throat Exposure to influenza Congestion of nasal sinus Your Care Team Attending Physician - Bella GARCÍA, Etta Primary Care Physician - DARWIN JONES CNP [...] with DARWIN JONES CNP When: Where: [address] [place] [address]- Medications What How Much When Instructions Unchanged [...] these instructions at home: Medicines ??? Take ciss-bdq-buhekff and prescription medicines only as told by [...] doctor. ??? (more content not included)... Normal [facility] Family Medicine Office/Clini c Noteon 10-14-2024 [...] with voice recognition software. Occasional wrong-word or ???hmbhj-d-wuzv??? substitutions may have occurred due to the [...] tx plan. Ordered: Influenza Type A&B POC 10377 Rapid Strep POC 22238 Strep Screen Culture 2. Exposure to strep throat (Z20.818: Contact with and (suspected) exposure to other bacterial communicable diseases) Rapid strep negative, will send for culture to confirm. 3. Exposure to influenza (Z20.828: Contact with and (suspected) exposure to other viral communicable diseases) Rapid Flu A/B negative. Congestion of nasal sinus (R09.81: Nasal congestion) Ordered: Influenza Type A&B POC 41468 Rapid Strep POC 82856 Follow-up With When Contact Information DARWIN JONES CNP [address] [place] [address]- Additional Instructions: Patient Education Pharyngitis, Ulvd-ar-Ugzo Problem List/Past Medical History Ongoing Anxiety Kidney [...] - De (more content not included)... Normal [facility] Comment on above: Result Comment: Elec tronically Signed By: Etta Merino\.br\Date and Time Signed: 10/14/24 09:31 EST OB GROWTHon 10-13-2024 [facility] [address] [place] [address] Ultrasound Report Signed Patient: TAWNYA HERRING MR#: [id number] : 1995 Acct:[id number] Age/Sex: 29 / F ADM Date: 10/13/24 Loc: US Attending Dr: Brain Way D.O. Ordering Physician: Brain Way D.O. Date of Service: 10/13/24 Procedure(s): US OB growth Accession Number(s): [id number] cc: Darwin Jones COUNTRY PRINTER APPRENTICE; Brain Way D.O. [place] [id number] Patient Name: TAWNYA HERRING MRN: [facility]:[id number] date: 1995 Sex: F Assigned Patient Location: [facility] Current Patient Location: Accession/Order Number: [id number] Exam Date: 10/13/2024 13:36 Report Date: 10/13/2024 [...] Aleisha Tapia M.D.10/13/2024 1:44 PM [facility]ictation [facility] Electronically authenticated by: [id number] Y Date: 10/13/2024 13:44 Dictated By: Aleisha Tapia M.D. Signed By: 10/13/24 1347 DD/ 1344 TD/TT: Stripper And Printer: [facility] Radiology, Radiolognoel contreras MD - 10/13/2024 [place] [address] Ultrasound Report Signed Patient: TAWNYA HERRING MR#: [id number] : 1995 Acct:[id number] Age/Sex: 29 / F ADM Date: 10/13/24 Loc: US Attending Dr: Brain Way D.O. Ordering Physician: Brain Way D.O. Date of Service: 10/13/24 Procedure(s): US OB growth Accession Number(s): [id number] cc: Darwin Jones COUNTRY PRINTER APPRENTICE; Brain Way D.O. [place] [id number] Patient Name: TAWNYA HERRING MRN: [facility]:[id number] date: 1995 Sex: F Assigned Patient Location: [facility] Current Patient Location: Accession/Order Number: [id number] Exam Date: 10/13/2024 13:36 Report Date: 10/13/2024 [...] Aleisha Tapia M.D.10/13/2024 1:44 PM Dictation Location: [place] [address] Electronically authenticated by: [id number] Y Date: 10/13/2024 13:44 Dictated By: Aleisha Tapia M.D. Signed By: 10/13/24 1347 DD/ 1344 TD/TT: Stripper And Printer: [facility] Radiology Study observation (narrative) [facility] OB GROWTHOrdered By: Halima ologleighton Radiology on 10-13-2024 [facility] Work Phone: No Panel Informationon 10-10 Miscellaneous Test COMMENT . [facility] Comment on above: Test Ordered: [id number] Strep Gp B Culture+RflxStrep Gp B Culture+Rflx Negative CB Reference Range: NegativeCenters for Disease Control and Prevention (CDC) andAmerican Congress of Obstetricians and Gynecologists (ACOG)guidelines for prevention of group Bstreptococcal (GBS) disease specify co-collection of avaginal and rectal swab specimen to maximize sensitivity ofGBS detection. Per the CDC and ACOG, swabbing both thelower vagina and rectum substantially increases the yieldof detection compared with sampling the vagina alone.Penicillin G, ampicillin, or cefazolin are indicated forintrapartum prophylaxis of GBS colonization.Reflex susceptibility testing should be performed prior touse of clindamycin only on GBS isolates from penicillin-allergic women who are considered a high risk foranaphylaxis. Treatment with vancomycin without additionaltesting is warranted if resistance to clindamycin is noted.Performed at: - [facility] [id number] Director: Alexis Ashton PhD, Phone: [phone] Urinalysis macro (dipstick) panel (U)on 10-10-2024 Bilirubin, UA Negative Negative - 4(70) +++ mg/dL [facility] Blood, UA Negative Negative - 50 Dain/mcL [facility] Clarity, UA Clear [facility] Color, UA Yellow [facility] Glucose, UA Negative Negative - 2000(110) ++++ mg/dL [facility] Interpretation and review of laboratory results Abnormal [facility] Ketones, UA Negative Negative - 160(16) ++++ mg/dL [facility] Leukocytes, UA Trace Negative - 500+++ Chaparrita/mcL [facility] Nitrite, UA Negative Negative - Positive [facility] pH, UA 7 5 - 9 [facility] Protein, UA Trace Negative - 1999(20) ++++ mg/dL [facility] Spec Grav, UA 1.015 1 - 1.03 [facility] Urobilinogen, UA 1.0 0.2 - 12 mg/dL [facility] US OB BPP W NON-STRESS on 10-05-2024 [place] [address] Ultrasound Report Signed Patient: TAWNYA HERRING MR#: [id number] : 1995 Acct:[id number] Age/Sex: 29 / F ADM Date: Loc: [facility] [address]: Brain [address] D.O. Ordering Physician: Brain Way D.O. Date of Service: 10/04/24 Procedure(s): US OB BPP w non-stress Accession Number(s): [id number] cc: Darwin Jones NP; Brain Way D.O. [address] [address] Patient Name: TAWNYA HERRING MRN: [id number] date: 1995 Sex: F Assigned Patient Location: [facility] Current Patient Location: [facility] [place] Accession/Order Number: [id number] Exam Date: 10/05/2024 10:54 Report Date: 10/05/2024 10:58 At the request of: BRAIN WAY DO Procedure: US OB BPP w non-stress BIOPHYSICAL PROFILE: CLINICAL INFORMATION: decreased movement COMPARISON: 09/28/2024 There is a fetus in cephalic presentation. The reported gestational age is 35 weeks 0 days. The heart rate [id number] beats per minute. FINDINGS: TONE: 1 or [...] Aleisha Tapia M.D.10/05/2024 10:58 AM Dictation Location: [place] [address] Electronically authenticated by: [id number] Y Date: 10/05/2024 10:58 Dictated By: Aleisha Tapia M.D. Signed By: 10/05/24 1239 DD/ 1058 TD/TT: Stripper And Printer: [facility] Radiology, Radiologi MD diane - 10/05/2024 [place] [address] Ultrasound Report Signed Patient: TAWNYA HERRING MR#: [id number] : 1995 Acct:[id number] Age/Sex: 29 / F ADM Date: Loc: [facility] 254-[address]: Brain Way D.O. Ordering Physician: Brain Way D.O. Date of Service: 10/04/24 Procedure(s): US OB BPP w non-stress Accession Number(s): [id number] cc: Darwin Jones NP; Brain Way D.O. [address] [address] Patient Name: TAWNYA HERRING MRN: [id number] date: 1995 Sex: F Assigned Patient Location: [facility] Current Patient Location: [facility] [place] Accession/Order Number: [id number] Exam Date: 10/05/2024 10:54 Report Date: 10/05/2024 10:58 At the request of: BRAIN WAY DO Procedure: US OB BPP w non-stress BIOPHYSICAL PROFILE: CLINICAL INFORMATION: decreased movement COMPARISON: 09/28/2024 There is a fetus in cephalic presentation. The reported gestational age is 35 weeks 0 days. The heart rate [id number] beats per minute. FINDINGS: TONE: 1 or [...] Aleisha Tapia M.D.10/05/2024 10:58 AM Dictation Location: [place] [address] Electronically authenticated by: [id number] Y Date: 10/05/2024 10:58 Dictated By: Aleisha Tapia M.D. Signed By: 10/05/24 1239 DD/ 1058 TD/TT: Stripper And Printer: [facility] Radiology Study observation (narrative) [facility] US OB BPP W NON-STRESS Ordered By: Radiologist Radiology on 10-05-2024 [facility] Work Phone: Urinalysis macro (dipstick) panel (U)on 10-05-2024 Bilirubin, UA Negative Negative - 4(70) +++ mg/dL [facility] Blood, UA Negative Negative - 50 Dain/mcL [facility] Clarity, UA Clear [facility] Color, UA Yellow [facility] Glucose, UA Negative Negative - 2000(110) ++++ mg/dL [facility] Interpretation and review of laboratory results Abnormal [facility] Ketones, UA Negative Negative - 160(16) ++++ mg/dL [facility] Leukocytes, UA Positive Negative - 500+++ Chaparrita/mcL [facility] Comment on above: small Nitrite, UA Negative Negative - Positive [facility] pH, UA 7 5 - 9 [facility] Protein, UA Negative Negative - 2000(20) ++++ mg/dL [facility] Spec Grav, UA 1.02 1 - 1.03 [facility] Urobilinogen, UA 0.2 0.2 - 12 mg/dL [facility] US OB BPP W NON-STRESS on 09-29-2024 [place] [address] Ultrasound Report Signed Patient: TAWNYA HERRING MR#: [id number] : 1995 Acct:[id number] Age/Sex: 29 / F ADM Date: 09/28/24 Loc: Attending Dr: Brain Way D.O. Ordering Physician: Brain Way D.O. Date of Service: 09/28/24 Procedure(s): US OB BPP w non-stress Accession Number(s): [id number] cc: Darwin Jones COUNTRY PRINTER APPRENTICE; Brain Way D.O. [address] [address] Patient Name: TAWNYA HERRING MRN: [id number] date: 1995 Sex: F Assigned Patient Location: [facility] Current Patient Location: Accession/Order Number: [id number] Exam Date: 09/28/2024 19:56 Report Date: 09/29/2024 [...] Signed By: 09/29/24 0734 DD/ 0732 TD/TT: Stripper And Printer: [facility] Radiology, Radiologi MD diane - 09/29/2024 [place] [address] Ultrasound Report Signed Patient: TAWNYA HERRING MR#: [id number] : 1995 Acct:[id number] Age/Sex: 29 / F ADM Date: 09/28/24 Loc: US Attending Dr: Brain Way D.O. Ordering Physician: Brain Way D.O. Date of Service: 09/28/24 Procedure(s): US OB BPP w non-stress Accession Number(s): [id number] cc: Darwin Jones COUNTRY PRINTER APPRENTICE; Brain [address] D.O. [place] [id number] Patient Name: TAWNYA HERRING MRN: [facility]:[id number] date: 1995 Sex: F Assigned Patient Location: [facility] Current Patient Location: Accession/Order Number: [id number] Exam Date: 09/28/2024 19:56 Report Date: 09/29/2024 [...] M.D. Signed By: 09/29/2434 DD/ 1 TD/TT: Stripper And Printer: [facility] Radiology Study observation (narrative) [facility] US OB BPP W NON-STRESS Ordered By: Radiologist Radiology on 09-29-2024 [facility] Work Phone: US OB BPP W NON-STRESS on 09-22-2024 [place] [address] Ultrasound Report Signed Patient: TAWNYA HERRING MR#: [id number] : 1995 Acct:[id number] Age/Sex: 29 / F ADM Date: 09/22/24 Loc: [facility] 252-[address]: Brain Way D.O. Ordering Physician: Brain Way D.O. Date of Service: 09/22/24 Procedure(s): US OB BPP w non-stress Accession Number(s): [id number] cc: Darwin Jones COUNTRY PRINTER APPRENTICE; Brain Way D.O. The [address] [address] Patient Name: TAWNYA HERRING MRN: [id number] date: 1995 Sex: F Assigned Patient Location: [facility] Current Patient Location: [facility] Accession/Order Number: [id number] Exam Date: 09/22/2024 11:07 Report Date: 09/22/2024 [...] Signed By: 09/22/24 1138 DD/ 1135 TD/TT: Stripper And Printer: [facility] Radiology, Radiologi MD diane - 09/22/2024 [place] [address] Ultrasound Report Signed Patient: TAWNYA HERRING MR#: [id number] : 1995 Acct:[id number] Age/Sex: 29 / F ADM Date: 09/22/24 Loc: [facility] 252-[address]: Brain Way D.O. Ordering Physician: Brain Way D.O. Date of Service: 09/22/24 Procedure(s): US OB BPP w non-stress Accession Number(s): [id number] cc: Darwin Jones COUNTRY PRINTER APPRENTICE; Brain Way D.O. The [address] [address] Patient Name: TAWNYA HERRING MRN: [facility]:[id number] date: 1995 Sex: F Assigned Patient Location: [facility] Current Patient Location: [facility] Accession/Order Number: [id number] Exam Date: 09/22/2024 11:07 Report Date: 09/22/2024 [...] Signed By: 09/22/24 1138 DD/ 1135 TD/TT: Stripper And Printer: [facility] Radiology Study observation (narrative) [facility] US OB BPP W NON-STRESS Ordered By: Radiologist Radiology on 09-22-2024 [facility] Work Phone: Thyroid Stimulating Hormoneo n 09-21-2024 TSH Qn 2.52 m[IU]/L Normal 0.45-5.33 [facility] Comment on above: Result Comment: PERF ORMED BY: [place] [address] PATHOLOGIST ACUTE CARE NURSING ASSISTANT MIS SCHMIDT M.D. Performed By: #### T SH3 #### [address] Thyrotropin [Units/volume] i n Serum or PlasmaOrdered By: Brain Way on 09-21-2024 TSH Qn Thyrotropin [Units/v olume] in Serum or Plasma 0.45-5.33 [facility] Urinalysis macro (dipstick) panel (U)on 09-19-2024 Bilirubin, UA Positive Negative - 4(70) +++ mg/dL [facility] Comment on above: small Blood, UA Negative Negative - 50 Dain/mcL [facility] Clarity, UA Clear [facility] Color, UA Wendy [facility] Glucose, UA Negative Negative - 2000(110) ++++ mg/dL [facility] Interpretation and review of laboratory results Abnormal [facility] Ketones, UA Positive Negative - 160(16) ++++ mg/dL [facility] Comment on above: trace Leukocytes, UA Negative Negative - 500+++ Chaparrita/mcL [facility] Nitrite, UA Negative Negative - Positive [facility] pH, UA 6 5 - 9 [facility] Protein, UA Positive Negative - 1999(20) ++++ mg/dL [facility] Comment on above: 30 Spec Grav, UA 1.025 1 - 1.03 [facility] Urobilinogen, UA 1.0 0.2 - 12 mg/dL [facility] US OB BPP W NON-STRESS on 09-15-2024 [place] [address] Ultrasound Report Signed Patient: TAWNYA HERRING MR#: [id number] : 1995 Acct:[id number] Age/Sex: 29 / F ADM Date: 09/14/24 Loc: [facility] 254-[address]: Brain Way D.O. Ordering Physician: Brain Way D.O. Date of Service: 09/14/24 Procedure(s): US OB BPP w non-stress Accession Number(s): [id number] cc: Darwin Jones COUNTRY PRINTER APPRENTICE; Brain Way D.O. [address] [address] Patient Name: TAWNYA HERRING MRN: [id number] date: 1995 Sex: F Assigned Patient Location: US Current Patient Location: Accession/Order Number: [id number] Exam Date: 09/14/2024 19:57 Report Date: 09/15/2024 [...] M.D. Signed By: 09/15/24616 DD/ 4 TD/TT: Stripper And Printer: [facility] Radiology, Radiologi MD diane - 09/15/2024 [place] [address] Ultrasound Report Signed Patient: TAWNYA HERRING MR#: [id number] : 1995 Acct:[id number] Age/Sex: 29 / F ADM Date: 09/14/24 Loc: [facility] 254-[address]: Brain Way D.O. Ordering Physician: Brain Way D.O. Date of Service: 09/14/24 Procedure(s): US OB BPP w non-stress Accession Number(s): [id number] cc: Darwin Jones COUNTRY PRINTER APPRENTICE; Brain Way D.O. The [address] [address] Patient Name: TAWNYA HERRING MRN: [facility]:[id number] date: 1995 Sex: F Assigned Patient Location: US Current Patient Location: Accession/Order Number: [id number] Exam Date: 09/14/2024 19:57 Report Date: 09/15/2024 [...] M.D. Signed By: 09/15/24616 DD/ 4 TD/TT: Stripper And Printer: [facility] [employer] Radiology Study observation (narrative) [facility] US OB BPP W NON-STRESS Ordered By: Radiologist Radiology on 09-15-2024 [facility] [employer] Work Phone: [facility] echo transthoracicon [facility] echo transthoracic [facility] [place] [address] Echocardiogram Signed Patient: Tawnya Shay MR#: [id number] 29 : 1995 Acct:[id number] Age/Sex: 29 / F ADM Date: 09/14/24 Loc: Room: Type: [facility] Attending Dr: Mary Ellen Bruce MD Ordering Provider: Mary Ellen Bruce MD Date of Service: 09/14/24 [facility] echo transthoracic: I51.7 - Cardiomegaly Copies to: [...] Mary Ellen Bruce MD 09/14/24 1116 Normal [facility] OB GROWTHon 09-11-[address] [address] Ultrasound Report Signed Patient: TAWNYA HERRING MR#: [id number] : 1995 Acct:[id number] Age/Sex: 29 / F ADM Date: 09/11/24 Loc: US Attending Dr: Mya Finch Ordering Physician: Mya Finch Date of Service: 09/11/24 Procedure(s): US OB growth Accession Number(s): [id number] cc: Mya Finch; Darwin Jones NP [address] [address] Patient Name: TAWNYA HERRING MRN: [id number] date: 1995 Sex: F Assigned Patient Location: US Current Patient Location: Accession/Order Number: [id number] Exam Date: 09/11/2024 10:00 Report Date: 09/11/2024 [...] Signed By: 09/11/24 1111 DD/ 1108 TD/TT: Stripper And Printer: [facility] Radiology, Radiolognoel contreras MD - 09/11/2024 [place] [address] Ultrasound Report Signed Patient: TAWNYA HERRING MR#: [id number] : 1995 Acct:[id number] Age/Sex: 29 / F ADM Date: 09/11/24 Loc: US Attending Dr: Mya Finch Ordering Physician: Mya Finch Date of Service: 09/11/24 Procedure(s): US OB growth Accession Number(s): [id number] cc: Mya Finch; Darwin Jones NP The [address] [address] Patient Name: TAWNYA HERRING MRN: [facility]:[id number] date: 1995 Sex: F Assigned Patient Location: US Current Patient Location: US Accession/Order Number: [id number] Exam Date: 09/11/2024 10:00 Report Date: 09/11/2024 [...] Signed By: 09/11/24 1111 DD/ 1108 TD/TT: Stripper And Printer: [facility] Radiology Study observation (narrative) [facility] US OB GROWTHOrdered By: Halima ologist Radiology on 09-11-2024 [facility] Work Phone: M Urineon 09-07-2024 Bacteria identified Cx Nom (U) [...] R1: This test was performed at: [facility], [address] [place] [address], [address]- , [place], [facility] Comment on above: Performed By: #### 2 [id number] #### [facility] [address] [place] [address] Urinalysis macro (dipstick) panel (U)on 09-07-2024 Bilirubin, UA Negative Negative - 4(70) +++ mg/dL [facility] Blood, UA Negative Negative - 50 Dain/mcL [facility] Clarity, UA Clear [facility] Color, UA Yellow [facility] Glucose, UA Negative Negative - 2000(110) ++++ mg/dL [facility] Interpretation and review of laboratory results Normal [facility] Ketones, UA Negative Negative - 160(16) ++++ mg/dL [facility] Leukocytes, UA Negative Negative - 500+++ Chaparrita/mcL [facility] Nitrite, UA Negative Negative - Positive [facility] pH, UA 8 5 - 9 [facility] Protein, UA Negative Negative - 2000(20) ++++ mg/dL [facility] Spec Grav, UA 1.015 1 - 1.03 [facility] Urobilinogen, UA 1.0 0.2 - 12 mg/dL [facility] ED Clinical Summaryon 2024 ED Clinical Summary ED Clinical Summary [place] [id number] ED Clinical Summary Person Information Name: TAWNYA HERRING [facility]ysi/[facility] Age: 29 Years : 1995 Sex: Female Language: Ukrainian PCP: DARWIN JONES CNP Marital Status: Single Phone: [phone] Visit Id: Visit Reason: Headache; HEADACHE, FALL [...] 16:26:55 09/06/2024 16:26:55 09/06/2024 16:26:55 ADDRESS: [address] [place] [phone] PHYS DOC NOTES: MEDICAL INFORMATION: Prescriptions Given: [...] day. PATIENT EDUCATION INFORMATION: Instructions: Concussion, Adult, Tqca-nw-Jczo Follow up: With: Address: When: DARWINKenan [address] [address] [phone] Business (1) In 3 days 09/09/2024 Comments: Call to schedule a follow-up appointment with your primary care provider. Use Zofran as needed for nausea/vomiting. Return to the ED with any new or worsening symptoms. DIAGNOSIS: JEFFERSON (headache) Normal [facility] ED Note-Physicianon 09-06-19 25 ED Note-Physician ED Note-Physician Basic Information Time Seen: Nay BECKHAM, Lashon ManEfren 09/06/2024 14:32 Chief Complaint Pt presents to [...] headache. She denies the use of any ahoe-rnb-vcqdqbb medications for this. Patient denies any neck [...] [] Head CT not ordered by emergency critical care paramedic [] Head CT ordered for reasons other than trauma [] Patient is 18 or older, presenting with minor blunt head trauma. Head CT (including cosigned orders) was ordered by an emergency critical care paramedic for trauma because (select one or more):[SATISFIES MIPS PERFORMANCE]Reasons: [] Patient is 65 or older [] Patient GCS < 15 [] Patient has focal neurologic deficit [] Patient has severe headache [] Patient is vomiting [] Severe/dangerous mechanism of injury was identified(select one or more): []MVA with: patient ejection, of another passenger, rollover, speed > 40mph, airbag deployment, special client bus driver or passenger on ATV or motorcycle [...] cosigned orders) was ordered by an emergency critical care paramedic for trauma, no indication specified.[DOES NOT SATISFY MIPS PERFORMANCE] Medical Decision Making Patient is a 29-year-old female with a history of anxiety who presents to the ED 30 weeks with complaints of a headache following a syncope episode from a seated position yesterday. Patient is hemodynamically st (more content not included)... Normal [facility] Comment on above: Result Comment: Elec tronically Signed By: Lashon Tee PA-C\.br\Date and Time Signed: 09/06/24 16:20 EST\.br\Electronically Co-Signed By: Lashon Tee PA-C\.br\Date and Time Co-Signed: 09/06/24 16:21 EST\.br\Electronically Co-Signed By: Flash Franco DO\.br\Date and Time Co-Signed: 09/06/24 19:47 EST ED Patient Summaryon 025 ED Patient Summary ED Patient Summary [place] [address] Patient Discharge Instructions Person Information Name: TAWNYA HERRING Age: 29 Years Arrival Date: 09/06/2024 13:57:18 Discharge Diagnosis: JEFFERSON (headache) Primary Care Physician: DARWIN JONES CNP Provider Information Primary Provider: Flash Franco DO Advanced Associate Professor Of English:Lashon Tee PA-C The exam and treatment you received in the Emergency Department were for an urgent problem and are not intended as complete care. It is important that you follow up with a doctor, nurse practitioner, or physician???s pediatric dental assistant for ongoing care. If your symptoms become worse or you do not improve as expected and you are unable to reach your usual health care provider, you should return to the Emergency Department. We are available 24 hours a day. NEVAEH TAWNYA Romie has been given the following list of patient education materials, prescriptions and follow-up instructions: Follow-up Instructions: With: Address: When: DARWIN JONES [address] [place] [address] [phone] Business (1) In 3 days 09/09/2024 Comments: [...] participating provider. Patient Education Materials: Concussion, Adult, Volr-ir-Hskt A MESSAGE TO ALL PATIENTS REGARDING OPIOIDS PRESCRIPTION OPIOIDS: WHAT YOU NEED TO KNOW Prescription opioids can be used to help relieve paravdki-uj-fiikoe pain and are often prescribed following a [...] (www.fda.gov/Drugs/Resourc esForYou). (more content not included)... Normal [facility] BLOOD BANKOrdered By: Estefany Morillo on 09-05-2024 Fibronectin. Ql (Vag fld) Negative 1 (09/05/24 5:47 AM) Normal [facility] Comment on above: Interpretive Data: [...] Anion gap [Moles/Vol] 16 mmol/L Normal 6-16 [facility] Comment on above: Performed By: #### 2 [id number] #### [facility] [address] [place] [address] Calcium [Mass/Vol] 8.5 mg/dL Low 8.9-11.1 [facility] Comment on above: Performed By: #### 2 394850 #### [facility] [address] [place] [address] Chloride [Moles/Vol] 108 mmol/L Normal 101-111 [facility] Comment on above: Performed By: #### 2 686349 #### [facility] [address] [place] [address] CO2 [Moles/Vol] 17 mmol/L Low 21-31 [facility] Comment on above: Performed By: #### 2 168282 #### [facility] [address] [place] [address] Creatinine [Mass/Vol] 0.4 mg/dL Low 0.5-1.3 [facility] Comment on above: Performed By: #### 2 907542 #### [facility] [address] [place] [address] Glucose [Mass/Vol] 103 mg/dL Normal 55-199 [facility] Comment on above: Performed By: #### 2 930408 #### [facility] [address] [place] [address] Potassium [Moles/Vol] 3.6 mmol/L Normal 3.5-5.3 [facility] Comment on above: Performed By: #### 2 657201 #### [facility] [address] [place] [address] Sodium [Moles/Vol] 137 mmol/L Normal 135-145 [facility] Comment on above: Performed By: #### 2 837493 #### [facility] [address] [place] [address] Urea nitrogen [Mass/Vol] 9 mg/dL Normal 5-21 [facility] Comment on above: Performed By: #### 2 841533 #### [facility] [address] [place] [address] Urea nitrogen/Creatinine [Mass ratio] 22 No Units High 10-20 [facility] Comment on above: Performed By: #### 2 614679 #### [facility] [address] [place] [address] CBC w/ Auto Diffon 5 Basophils/100 WBC (Bld) 0.4 % Normal 0.0-2.0 [facility] Comment on above: Performed By: #### 2 867808 #### [facility] [address] [place] [address] Basophils/Leukocytes Auto (Bld) [Pure # fraction] 0.1 E9/L Normal 0.0-0.2 [facility] Comment on above: Performed By: #### 2 783713 #### [facility] [address] [place] [address] Eosinophils (Bld) [#/Vol] 0.0 E9/L Normal 0.0-0.5 [facility] Comment on above: Performed By: #### 2 938909 #### [facility] [address] [place] [address] Eosinophils/100 WBC (Bld) 0.3 % Normal 0.0-8.0 [facility] Comment on above: Performed By: #### 2 282754 #### [facility] [address] [place] [address] Erythrocyte distribution width (RBC) [Ratio] 12.7 % Normal 10.9-14.2 [facility] Comment on above: Performed By: #### 2 345814 #### [facility] [address] [place] [address] Hematocrit (Bld) [Volume fraction] 37.4 % Normal 34.0-46.0 [facility] Comment on above: Performed By: #### 2 432062 #### [facility] [address] [place] [address] Hemoglobin (Bld) [Mass/Vol] 13.2 g/dL Normal 12.0-16.0 [facility] Comment on above: Performed By: #### 2 300898 #### [facility] [address] [place] [address] Lymphocytes (Bld) [#/Vol] 1.1 E9/L Normal 1.0-4.0 [facility] Comment on above: Performed By: #### 2 768581 #### [facility] [address] [place] [address] Lymphocytes/100 WBC (Bld) 7.0 % Low 14.0-50.0 [facility] Comment on above: Performed By: #### 2 085557 #### [facility] [address] [place] [address] MCH (RBC) [Entitic mass] 33.0 pg Normal 27.0-34.0 [facility] Comment on above: Performed By: #### 2 583424 #### [facility] [address] [place] [address] MCHC (RBC) [Mass/Vol] 35.4 g/dL Normal 31.4-36.0 [facility] Comment on above: Performed By: #### 2 529169 #### [facility] [address] [place] [address] MCV (RBC) [Entitic vol] 93.3 fL Normal 80.0-100.0 [facility] Comment on above: Performed By: #### 2 653903 #### [facility] [address] [place] [address] Monocytes (Bld) [#/Vol] 0.7 E9/L Normal 0.2-1.0 [facility] Comment on above: Performed By: #### 2 955780 #### [facility] [address] [place] [address] Neutrophils (Bld) [#/Vol] 13.7 E9/L High 2.0-7.5 [facility] Comment on above: Performed By: #### 2 967477 #### [facility] [address] [place] [address] Neutrophils/100 WBC (Bld) 87.6 % High 36.0-75.0 [facility] Comment on above: Performed By: #### 2 453006 #### [facility] [address] [place] [address] Platelet 324.0 E9/L Normal 150.0-500. 0 [facility] Comment on above: Performed By: #### 2 029127 #### [facility] [address] [place] [address] Platelet mean volume (Bld) [Entitic vol] 8.3 fL Normal 6.4-10.8 [facility] Comment on above: Performed By: #### 2 568435 #### [facility] [address] [place] [address] RBC (Bld) [#/Vol] 4.0 E12/L Low 4.3-5.9 [facility] Comment on above: Performed By: #### 2 200184 #### [facility] [address] [place] [address] WBC corrected for nucl RBC Auto (Bld) [#/Vol] 15.6 E9/L High 4.0-11.0 [facility] Comment on above: Performed By: #### 2 119091 #### [facility] [address] [place] [address] CHEMISTRYOrdered By: SYSTEM SYSTEM on 09-05-2024 Albumin [...] 2024 ED Clinical Summary ED Clinical Summary [address] [address] ED Clinical Summary Person Information Name: TAWNYA HERRING [facility]ysi/[facility] Age: 29 Years : 1995 Sex: Female Language: Ukrainian PCP: DARWIN JONES CNP Marital Status: Single Phone: [phone] Visit Id: Visit Reason: Abdominal pain - ; Vomiting - ; Syncope/Near syncope; PASSED OUT HIT HEAD,NAUSEA DIARRHEA VOMITING 30 WKS PREG Speciality: Acuity: 2 Enc Type: Emergency Med Service: Emergency Arrival: 09/05/2024 03:02:46 Discharge: LOS: 000 01:33 Checkin: 09/05/2024 03:02:46 Checkout: 09/05/2024 04:35:45 Dispo Type: Admitted as IP to this [facility] EVENTS: Event Name Event Status Request Date/Time [...] 04:35:45 09/05/2024 04:35:45 09/05/2024 04:35:45 ADDRESS: [address] [place] [phone] PHYS DOC NOTES: MEDICAL INFORMATION: Prescriptions Given: Medications to Continue with No Changes Other Medications citalopram (CeleXA 20 mg Tab) 1 Tablets By Mouth every day. PATIENT EDUCATION INFORMATION: Instructions: Syncope, Adult, Gbtz-cm-Bxec; Nausea and Vomiting, Adult, Pngq-ff-Lgem; Diarrhea, Adult, Lljf-js-Jetr; Dehydration, Adult, Qmqj-as-Pvgi Follow up: With: Address: When: DARWIN [address] [place] [address] [phone] Business (1) In 3 days 09/08/2024 Comments: Please follow-up with Dr. Way for further evaluation management. Please return to the ED for any new or worsening symptoms. DIAGNOSIS: Dehydration; Diarrhea, unspecified; Nausea, vomiting, and diarrhea; Syncope Normal [facility] ED Note-Nursingon 09-05-2024 ED Note-Nursing ED Note-Nursing OB at bedside Normal [facility] ED Note-Physicianon 09-05-19 ED Note-Physician ED [...] and Complexity of Problems Differential Diagnosis: [] [facility] Data External documents reviewed: [] My [...] Dayna 50 mL [F] 50 mL + [id number] [F] 25 mg, IV Piggyback Disposition Plan [...] Use, 03/12/2020 (more content not included)... Normal [facility] Comment on above: Result Comment: Elec tronically Signed By: Gabriel Curtis DO\.br\Date and Time Signed: 09/05/24 04:22 EST ED Patient Summaryon 025 ED Patient Summary ED Patient Summary [place] [id number] Patient Discharge Instructions Person Information Name: TAWNYA HERRING Age: 29 Years Arrival Date: 09/05/2024 03:02:46 Discharge Diagnosis: Dehydration; Diarrhea, unspecified; Nausea, vomiting, and diarrhea; Syncope Primary Care Physician: DARWIN JONES CNP Provider Information Primary Provider: Gabriel Curtis DO Advanced Associate Professor Of English:None The exam and treatment you received in the Emergency Department were for an urgent problem and are not intended as complete care. It is important that you follow up with a doctor, nurse practitioner, or physician???s pediatric dental assistant for ongoing care. If your symptoms [...] Follow-up Instructions: With: Address: When: DARWIN JONES [facility] [place] [phone] revoPT (1) In 3 days 09/08/2024 Comments: Please follow-up with Dr. Way for further evaluation management. Please return to the ED for any new or worsening symptoms. In the event that this physician does not participate in your insurance network, please consult with your insurance company to find a nearby participating provider. Patient Education Materials: Syncope, Adult, Ckqx-wu-Kozp; Nausea and Vomiting, Adult, Tqze-gd-Fsgy; Diarrhea, Adult, Ldcw-la-Tmtu; Dehydration, Adult, Yahu-wg-Dmmb A MESSAGE TO ALL PATIENTS REGARDING OPIOIDS PRESCRIPTION OPIOIDS: WHAT YOU NEED TO KNOW Prescription opioids can be used to help relieve takzprja-fs-ssovbw pain and are often prescribed following a [...] down t (more content not included)... Normal [facility] Extra Blueon 09-05-2024 Tube Collected Plasma Yes Invalid Interpretation Code [facility] Comment on above: Performed By: #### 1 [id number] #### [facility] [address] [place] [address] FFNon 09-05-2024 Fibronectin. Ql (Vag fld) Negative Normal [facility] Comment on above: Result Comment: In [...] the antibody-antigen reaction. Performed By: #### 1 [id number] #### [facility] [address] [place] [address] HEMATOLOGYOrdered By: SYSTEM SYSTEM on 09-05-2024 Basophils/100 [...] 09-05-2024 Albumin [Mass/Vol] 3.8 g/dL Normal 3.3-5.0 [facility] Comment on above: Performed By: #### 2 197435 #### [facility] [address] [place] [address] Albumin/Globulin (S) [Mass conc ratio] 1.5 Normal 1.1-2.2 [facility] Comment on above: Performed By: #### 2 579645 #### [facility] [address] [place] [address] ALP [Catalytic activity/Vol] 80 Int._Unit/L Normal 21-98 [facility] Comment on above: Performed By: #### 2 980609 #### [facility] [address] [place] [address] ALT No additional P-5'-P [Catalytic activity/Vol] 20 Int._Unit/L Normal 6-46 [facility] Comment on above: Performed By: #### 2 711870 #### [facility] [address] [place] [address] AST [Catalytic activity/Vol] 15 Int._Unit/L Normal 5-43 [facility] Comment on above: Performed By: #### 2 128578 #### [facility] [address] [place] [address] Bilirubin [Mass/Vol] 0.6 mg/dL Normal 0.0-1.1 [facility] Comment on above: Performed By: #### 2 544339 #### [facility] [address] [place] [address] Bilirubin.direct [Mass/Vol] 0.1 mg/dL Normal 0.0-0.4 [facility] Comment on above: Performed By: #### 2 364826 #### [facility] [address] [place] [address] Bilirubin.indirect [Mass or moles/Vol] 0.5 mg/dL Normal 0.1-0.9 [facility] Comment on above: Performed By: #### 2 490648 #### [facility] [address] [place] [address] Globulin (S) [Mass/Vol] 2.6 g/dL Normal 1.4-4.0 [facility] Comment on above: Performed By: #### 2 606276 #### [facility] [address] [place] [address] Protein [Mass/Vol] 6.4 g/dL Normal 6.0-7.8 [facility] Comment on above: Performed By: #### 2 038689 #### [facility] [address] [place] [address] Influenza A&B Agon 5 Influenzae A Ag Negative Normal Negative [facility] Comment on above: Performed By: #### 1 [id number] #### [facility] [address] [place] [address] Influenzae B Ag Negative Normal Negative [facility] Comment on above: Result Comment: Test sensitivity and specificity vary for age group, specimen type, antigen types, and prevalence of disease. Test results must be evaluated in conjunction with other clinical data available to the physician. Individuals who received nasally administered Influenza A vaccine may have positive test results up to 3 days after vaccination. Performed By: #### 1 [id number] #### [facility] [address] [place] [address] Inpatient Clinical Summaryon 09-05-2024 Inpatient Clinical Summary Inpatient Clinical Summary [address] [address] Clinical Summary Person Information Name: TAWNYA HERRING [facility] Age: 29 Years : 1995 Sex: Female PCP: DARWIN JONES CNP Marital Status: Single Phone: [phone] Race: White Ethnicity: Non- or Language: Ukrainian Visit Id: Visit Reason: Abdominal pain - ; Vomiting - ; Syncope/Near syncope; PASSED OUT HIT HEAD,NAUSEA DIARRHEA VOMITING 30 WKS PREG Speciality: Acuity: Obs Enc Type: Observation Med Service: Obstetrics Arrival: 09/05/2024 03:02:46 Discharge: 09/05/2024 15:50:00 Dispo Type: Home (Routine DC) Address: [address] [place] [phone] Provider Notes: Diagnosis: Dehydration; Diarrhea, unspecified; Nausea, [...] range between ( 80.0 and 100.0 ) [place] Auto: 4.7 % -- Normal range between ( 4.0 and 14.0 ) MPV: 8.3 fL -- Normal range between ( 6.4 and 10.8 ) Neutro Auto: 87.6 % -- Normal range between ( 36.0 and 75.0 ) Platelet: 324.0 E9/L -- Normal range between ( 150.0 and 500.0 ) WBC: 15.6 E9/L -- Normal range between ( 4.0 and 11.0 ) [place] Absolute: 0.7 E9/L -- Normal range between [...] 38.19 kg/m2 (more content not included)... Normal [facility] Inpatient Patient Summaryon 09-05-2024 Inpatient Patient Summary Inpatient Patient Summary [address] [address] Patient Discharge Instructions PERSON INFORMATION Name: TAWNYA HERRING Romie Date of : 1995 Current Date: 09/05/2024 16:15:55 PHYSICIANS Admitting Physician: Rogelio Nath MD Primary Care Physician: DARWIN JONES CNP PCP Phone Number: [phone] Comment: Discharge Diagnosis: Dehydration; Diarrhea, unspecified; Nausea, [...] With: Address: When: Brain WAY [facility], [address] [facility] [place] [address] Business (1) In 2 days 09/07/2024 Comments: Call 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 supervisory historian prescriptions at [facility] With: Address: When: DARWIN JONES [address] [place] [phone] [facility] (1) In 3 days 09/08/2024 Comments: Please [...] until you feel better. Medicines ??? Take qipp-uib-aoioyro and prescription medicines only as told by [...] ? Flexing (more content not included)... Normal [facility] Lipase Levelon 09-05-2024 Lipase [Catalytic activity/Vol] 18 U/L Normal 13-58 [facility] Comment on above: Performed By: #### 2 [id number] #### [facility] [address] [place] [address] MICRO OTHER TESTSOrdered By: Barrington Maxwell on 09-05-2024 Influenzae A Ag Negative (09/05/24 3:34 AM) Normal Negative [facility] Sero Influenzae B Ag Negative 3 (09/05/24 3:34 AM) Normal Negative [facility] Comment on above: Interpretive Data: [...] Troponin HS 2.70 pg/mL Low 10.10-27.1 0 [facility] Comment on above: Result Comment: The 95% CI (Confidence Interval) PPV (Positive Predictive Value) for myocardial infarction in females is 38 pg/mL, in males 51 pg/mL. The results should be used in conjunction with clinical conditions of myocardial infarction. (Access High Sensitivity Troponin I Instructions For Use, Nathen [employer], March 2018) Performed By: #### 1 [id number] #### [facility] [address] [place] [address] UA with Cult Rflxon 09-05-19 25 Bacteria Auto Ql (U) Trace Normal Trace Fish [facility] Comment on above: Performed By: #### 4 [id number] #### [facility] [address] [place] [address] Bilirubin Ql (U) 1+ mg/dL Abnormal Negative [facility] Comment on above: Performed By: #### 4 [id number] #### [facility] [address] [place] [address] Clarity (U) Turbid Abnormal Clear [facility] Comment on above: Performed By: #### 4 [id number] #### [facility] [address] [place] [address] Color (U) Dark-Yellow Abnormal Yellow [facility] Comment on above: Result Comment: Micr oscopic readings are only performed on those samples that meet specific criteria set forth by [facility]. Performed By: #### 4 [id number] #### [facility] [address] [place] [address] Epithelial cells.squamous Auto (Urine sed) [#/Area] 5-8 Invalid Interpretation Code [facility] Comment on above: Performed By: #### 4 [id number] #### [facility] [address] [place] [address] Glucose Ql (U) Trace Abnormal Negative [facility] Comment on above: Performed By: #### 4 [id number] #### [facility] [address] [place] [address] Hemoglobin Auto test strip (U) [Mass/Vol] Negative Normal Negative [facility] Comment on above: Performed By: #### 4 [id number] #### [facility] [address] [place] [address] Ketones Auto test strip Ql (U) 1+ mg/dL Abnormal Negative [facility] Comment on above: Performed By: #### 4 [id number] #### [facility] [address] [place] [address] Leukocyte esterase Auto test strip Ql (U) 25 Chaparrita/uL Normal Negative [facility] Comment on above: Performed By: #### 4 [id number] #### [facility] [address] [place] [address] Mucus Auto Ql (U) 4+ CD:[id number] Abnormal Negative [facility] Comment on above: Performed By: #### 4 [id number] #### [facility] [address] [place] [address] Nitrite Auto test strip Ql (U) 1+ mg/dL Abnormal Negative [facility] Comment on above: Performed By: #### 4 [id number] #### [facility] [address] [place] [address] pH (U) 5.5 [pH] Invalid Interpretation Code 5.0-9.0 [facility] Comment on above: Performed By: #### 4 [id number] #### [facility] [address] [place] [address] Protein Ql (U) 1+ mg/dL Abnormal Negative [facility] Comment on above: Performed By: #### 4 [id number] #### [facility] [address] [place] [address] RBC Ql (U) 0-3 Normal 0-3 [facility] Comment on above: Performed By: #### 4 [id number] #### [facility] [address] [place], [place] [id number] Specific gravity (U) [Rel density] 1.029 Invalid Interpretation Code 1.005-1.03 0 [facility] Comment on above: Performed By: #### 4 [id number] #### [facility] [address] [place], [place] [id number] Urobilinogen (U) [Mass/Vol] 2 mg/dL Abnormal Negative [facility] Comment on above: Performed By: #### 4 [id number] #### [facility] [address] [place], [place] [id number] WBC Auto (Urine sed) [#/Area] 0-5 Normal 0-5 [facility] Comment on above: Performed By: #### 4 [id number] #### [facility] [address] [place], [place] [id number] Type of Urine collection method Clean Catch Normal [facility] Comment on above: Performed By: #### 4 [id number] #### [facility] [address] [place], [place] [id number] URINALYSISOrdered By: SYSTEM SYSTEM on 09-05-2024 Bacteria [...] that meet specific criteria set forth by [facility]. Epithelial cells.squamous Auto (Urine sed) [...] AM) Invalid Interpretation Code 5.0 - 9.0 [facility] UA Auto SS Protein Ql (U) 1+ mg/dL Invalid Interpretation Code Negativemg /dL FT UA Auto SS RBC Ql (U) 0-3 graded/HPF Normal 0-3graded/ HPF FT UA Auto SS Specific gravity (U) [Rel density] 1.029 *NA* (09/05/24 5:25 AM) Invalid Interpretation Code 1.005 - 1.030 [facility] UA Auto SS Urobilinogen (U) [Mass/Vol] 2 mg/dL Invalid Interpretation Code Negativemg /dL FT UA Auto SS WBC Auto (Urine sed) [#/Area] 0-5 graded/HPF Normal 0-5graded/ HPF [facility] UA Auto SS URINALYSISOrdered By: Rica Islas on 09-05-2024 UA Spec Desc Clean Catch (09/05/24 5:25 AM) Normal [facility] UA Auto SS eGFRon 09-05-2024 eGFR 138 mL/min/1.73 m2 Normal >=59 [facility] Comment on above: Performed By: #### 1 [id number] #### [facility] [address] [place] [address] ALL CBC WITH AUTO DIFFon BASOPHILS ABSOLUTE AUTO 0 [facility] Basophils/100 WBC (Bld) 0.2 % 0.2 - 2.0 % [facility] Eosinophils/100 WBC (Bld) 0.8 % Low 0.9 - 7.0 % [facility] Erythrocyte distribution width (RBC) [Ratio] 12.1 % 11.0 - 15.0 % [facility] Hematocrit (Bld) [Volume fraction] 33.9 % Low 36.0 - 48.0 % [facility] Hemoglobin (Bld) [Mass/Vol] 11.6 g/dL Low 12.0 - 16.0 g/dL [facility] IMMATURE GRANULOCYTES ABS AUTO 0.03 [facility] Immature granulocytes/100 WBC (Bld) 0.3 % 0.0 - 0.5 % [facility] Interpretation and review of laboratory results Abnormal [facility] LYMPHOCYTES ABSOLUTE AUTO 1.8 [facility] Lymphocytes/100 WBC (Bld) 19.8 % Low 20.5 - 60.0 % [facility] MCH (RBC) [Entitic mass] 32.9 pg 26.7 - 34.0 pg [facility] MCHC (RBC) [Mass/Vol] 34.2 g/dL 29.9 - 35.2 g/dL [facility] MCV (RBC) [Entitic vol] 96 fL 81.0 - 99.0 fL [facility] MONOCYTES ABSOLUTE AUTO 0.5 [facility] Monocytes/100 WBC (Bld) 5.4 % 1.7 - 12.0 % [facility] NEUTROPHILS ABSOLUTE AUTO 6.6 High [facility] Neutrophils/100 WBC (Bld) 73.5 % 43.0 - 75.0 % [facility] Platelet mean volume (Bld) [Entitic vol] 10.2 fL 9.5 - 13.5 fL [facility] EO # 0.1 [facility] PLT 287 [facility] RBC 3.53 Low [facility] WBC 9 [facility] Basophils Auto (Bld) [#/Vol] on 08-25-2024 Basophils (Bld) [#/Vol] Automated basophil count 0.0-0.1 [facility] Basophils/100 WBC Auto (Bld) on 08-25-2024 Basophils/100 WBC (Bld) Automated basophil % 0.2-2.0 [facility] Eosinophils/100 WBC Auto (Bl d)on 08-25-2024 Eosinophils/100 WBC (Bld) Automated eosinophil % Low 0.9-7.0 [facility] Erythrocyte distribution wid th Auto (RBC) [Ratio]on 08-25-2024 Erythrocyte distribution width (RBC) [Ratio] Erythrocyte distribution width [Ratio] by Automated count 11.0-15.0 [facility] FPG ECG *CARDIOLOGY ONLY*on 08-25-2024 FPG ECG *CARDIOLOGY ONLY* [facility] [place] [address] Electrocardiograph Report Signed Patient: Tawnya Herring MR#: [id number] 29 : 1995 Acct:[id number] Age/Sex: 29 / F ADM Date: 08/25/24 Loc: EKGCARDIO Room: Type: [facility] Attending Dr: Mary Ellen Bruce [...] Normal ECG Confirmed by Mary Ellen Bruce ([id number]) on 08/25/2024 1:42:57 PM Referred By: Electronically Signed By: Mary Ellen Bruce Transcribed By: MUS Signed By Mary Ellen Bruce MD 5 1342 Normal [facility] Hematocrit Auto (Bld) [Volum e fraction]on 08-25-2024 Hematocrit (Bld) [Volume fraction] Hematocrit [Volume Fraction] of Blood by Automated count Low 36.0-48.0 [facility] Hemoglobin [Mass/volume] in Bloodon 08-25-2024 Hemoglobin (Bld) [Mass/Vol] Hemoglobin [Mass/volume] in Blood Low 12.0-16.0 [facility] Laboratory - Chemistry and C hemistry - challengeon 08-25-2024 Glucose [Mass/Vol] 131 mg/dL High <130 [facility] Laboratory - Hematology and Cell countson 08-25-2024 Immature granulocytes/100 WBC (Bld) 0.3 % 0.0-0.5 [facility] Leukocytes [#/volume] correc hamilton for nucleated erythrocytes in Blood by Automated counon 08-25-2024 WBC corrected for nucl RBC Auto (Bld) [#/Vol] Leukocytes [#/volume] corrected for nucleated erythrocytes in Blood by Automated coun 4.0-11.0 [facility] Lymphocytes Auto (Bld) [#/Vo l]on 08-25-2024 Lymphocytes (Bld) [#/Vol] Lymphocytes [#/volume] in Blood by Automated count 1.2-3.8 [facility] Lymphocytes/100 WBC Auto (Bl d)on 08-25-2024 Lymphocytes/100 WBC (Bld) Lymphocytes/100 leukocytes in Blood by Automated count Low 20.5-60.0 [facility] MCH Auto (RBC) [Entitic mass ]on 08-25-2024 MCH (RBC) [Entitic mass] MCH [Entitic mass] by Automated count 26.7-34.0 [facility] MCHC Auto (RBC) [Mass/Vol]on 08-25-2024 MCHC (RBC) [Mass/Vol] MCHC [Mass/volume] by Automated count 29.9-35.2 [facility] MCV Auto (RBC) [Entitic vol] on 08-25-2024 MCV (RBC) [Entitic vol] MCV [Entitic volume] by Automated count 81.0-99.0 [facility] Monocytes Auto (Bld) [#/Vol] on 08-25-2024 Monocytes (Bld) [#/Vol] Automated blood monocyte count 0.3-0.8 [facility] Monocytes/100 WBC Auto (Bld) on 08-25-2024 Monocytes/100 WBC (Bld) Automated monocyte % 1.7-12.0 [facility] Neutrophils Auto (Bld) [#/Vo l]on 08-25-2024 Neutrophils (Bld) [#/Vol] Neutrophils [#/volume] in Blood by Automated count High 1.4-6.5 [facility] Neutrophils/100 WBC Auto (Bl d)on 08-25-2024 Neutrophils/100 WBC (Bld) Automated neutrophil % 43.0-75.0 [facility] No Panel Informationon 08-25 Eosinophils # (Auto) 0.1 10 3/uL 0.0-0.7 [facility] Immature Granulocyte # (Auto) 0.03 10 3/uL 0.00-0.03 [facility] Platelet mean volume Auto (B ld) [Entitic vol]on 08-25-2024 Platelet mean volume (Bld) [Entitic vol] Platelet mean volume [Entitic volume] in Blood by Automated count 9.5-13.5 [facility] Platelets Auto (Bld) [#/Vol] on 08-25-2024 Platelets (Bld) [#/Vol] Platelets [#/volume] in Blood by Automated count 150-450 [facility] RBC Auto (Bld) [#/Vol]on RBC (Bld) [#/Vol] Erythrocytes [#/volu me] in Blood by Automated count Low 4.20-5.40 [facility] Urinalysis macro (dipstick) panel (U)on 08-23-2024 Bilirubin, UA Negative Negative - 4(70) +++ mg/dL [facility] Blood, UA Negative Negative - 50 Dain/mcL [facility] Clarity, UA Clear [facility] Color, UA Yellow [facility] Glucose, UA Negative Negative - 1999(110) ++++ mg/dL [facility] Interpretation and review of laboratory results Abnormal [facility] Ketones, UA Negative Negative - 160(16) ++++ mg/dL [facility] Leukocytes, UA Positive Negative - 500+++ Chaparrita/mcL [facility] Comment on above: small Nitrite, UA Negative Negative - Positive [facility] pH, UA 7 5 - 9 [facility] Protein, UA Negative Negative - 1999(20) ++++ mg/dL [facility] Spec Grav, UA 1.02 1 - 1.03 [facility] Urobilinogen, UA 0.2 0.2 - 12 mg/dL [facility] Thyroid Stimulating Hormoneo n 07-31-2024 TSH Qn 2.07 m[IU]/L Normal 0.45-5.33 [facility] Comment on above: Result Comment: PERF ORMED BY: [place] [address] PATHOLOGIST ACUTE CARE NURSING ASSISTANT MIS SCHMIDT M.D. Performed By: #### T SH3 #### [address] Thyrotropin [Units/volume] i n Serum or PlasmaOrdered By: Brain Way on 07-31-2024 TSH Qn Thyrotropin [Units/v olume] in Serum or Plasma 0.45-5.33 [facility] Urinalysis macro (dipstick) panel (U)on 07-11-2024 Bilirubin, UA Negative Negative - 4(70) +++ mg/dL [facility] Blood, UA Negative Negative - 50 Dain/mcL [facility] Clarity, UA Clear [facility] Color, UA Yellow [facility] Glucose, UA Negative Negative - 1999(110) ++++ mg/dL [facility] Interpretation and review of laboratory results Abnormal [facility] Ketones, UA Negative Negative - 160(16) ++++ mg/dL [facility] Leukocytes, UA Trace Negative - 500+++ Chaparrita/mcL [facility] Nitrite, UA Negative Negative - Positive [facility] pH, UA 6 5 - 9 [facility] Protein, UA Negative Negative - 1999(20) ++++ mg/dL [facility] Spec Grav, UA 1.01 1 - 1.03 [facility] Urobilinogen, UA 0.2 0.2 - 12 mg/dL [facility] Alpha-fetoprotein (AFP) luis urement (lzhhpypf-nb-bldqqw)Ordered By: Brain Way on 06-28-2024 AFP [MoM] Alpha-fetoprotein (A FP) measurement (wrxxmaai-tu-hpbjff) . [facility] Determination of gestational ageOrdered By: Brain Way on 06-28-2024 Gestational age Assess gestational age . [facility] Estimation of maternal age-s pecific risk of Down syndrome birthOrdered By: Brain Way on 06-28-2024 Age [Time] Estimation of matern al age-specific risk of Down syndrome . [facility] Human chorionic gonadotropin (hCG) multiple of median measurementOrdered By: Brain Way on 06-28-2024 HCG [MoM] Human chorionic gonadotropin (hCG) multiple of median measurement . [facility] Insulin dependent diabetes m ellitus detectionOrdered By: Brain Way on 06-28-2024 Insulin dependent diabetes mellitus Ql Insulin dependent diabetes mellitus detection . [facility] Interpretation of serum or p lasma second trimester quad maternal screen (narrative reOrdered By: Brain Way on 06-28-2024 Second trimester quad maternal screen Mathew [Interp] Interpretation of serum or plasma second trimester quad maternal screen (narrative re . [facility] Comment on above: Interpretation:An in terpretation CANNOT be provided for this patientbecause necessary patient information was not provided (oneor more of: gestational age, weight, or patient age).Please call us with new clinical information.Recalculations are not recommended when gestational datingby LMP and ultrasound are within 10 days. No Panel InformationOrdered By: Brain Way on 06-28-2024 AFP Triple Screen Comment Comment . [facility] Comment on above: Stephanie Pinto , Ph.D., DABCCDirectorReferences: Available Upon Request.Multiples Of Median Cutoffs Abbreviation Definitions For AFP Elevations IDD- Insulin Dep DiabetesSingleton 2.5 Black 2.8 OSBR- Open Spina BifidaIDD 2.0 Twins 4.5 RiskDSR Cutoff 1:270 DSR- Down Syndrome RiskT18 Cutoff 1:100 T18- Trisomy 18For further inquiries contact [employer] Servicesat [phone].This test was developed and its performance characteristicsdetermined by [employer]. It has not been cleared or approvedby the Food and Drug Administration.Performed at: [facility] [id number] [place], [place] [id number] Director: Aubrey Moreno [facility], Phone: [phone] Alpha Fetoprotein Results Received Report . [facility] Down Syndrome Age Equivalent See interpretation. . [facility] Gestational Age Calculation Method Ultrasound . [facility] Comment on above: 18:5 on 06/12/2024 Maternal Quad Test Risk See interpretation. . [facility] Maternal Race . [facility] Multiple No . [facility] Serum or plasma twxyh-4-mwdp protein measurement (mass/volume)Ordered By: Brain Way on 06-28-2024 AFP [Mass/Vol] Serum or plasma kghlh-3-lnhgfxhjwjm measurement (mass/volume) . [facility] Serum or plasma inhibin A me asurement (adjusted ucrpovfj-by-leuoxr)Ordered By: Brain Way on 06-28-2024 Inhibin A adjusted [MoM] Serum or plasma inhibin A measurement (adjusted iorwyech-ii-xjvziz) . [facility] Serum or plasma inhibin A me asurement (mass/volume)Ordered By: Brain Way on 06-28-2024 Inhibin A [Mass/Vol] Inhibin A [Mass/vol ume] in Serum or Plasma . [facility] Serum or plasma total combin ed intact choriogonadotropin and beta subunit measurementOrdered By: Brain Way on 06-28-2024 HCG.intact+Beta subunit Qn Serum or plasma total combined intact choriogonadotropin and beta subunit measurement . [facility] Serum or plasma unconjugated estriol (E3) measurement (adjusted buvpshzf-zw-putchi)Ordered By: Brain Way on 06-28-2024 E3.unconjugated adjusted [MoM] Serum or plasma unconjugated estriol (E3) measurement (adjusted hdesxsiv-ai-dkhikq) . [facility] Serum or plasma unconjugated estriol (E3) measurement (mass/volume)Ordered By: Brain Way on 06-28-2024 E3.unconjugated [Mass/Vol] Serum or plasma unconjugated estriol (E3) measurement (mass/volume) . [facility] Thyroid Stimulating Hormoneo n 06-28-2024 TSH Qn 3.44 m[IU]/L Normal 0.45-5.33 [facility] Comment on above: Result Comment: PERF ORMED BY: [facility] [address] [place] [address] PATHOLOGIST ACUTE CARE NURSING ASSISTANT JORDI SMITH M.D. Performed By: #### T SH3 #### [facility] [address] Thyrotropin [Units/volume] i n Serum or PlasmaOrdered By: Brain Way on 06-28-2024 TSH Qn Thyrotropin [Units/v olume] in Serum or Plasma 0.45-5.33 [facility] Trisomy 21 risk determinatio n in fetusOrdered By: Brain Way on 06-28-2024 Trisomy 21 risk Qn (fetus) Trisomy 21 risk determination in fetus . [facility] US OB >= 14 weeks Fetuson US OB >= 14 weeks Fetus [facility] [place] [address] Ultrasound Report Signed Patient: Tawnya Herring MR#: [id number] 29 : 1995 Acct:[id number] Age/Sex: 28 / F ADM Date: 06/22/24 Loc: Room: Type: [facility] Attending Dr: Brain Way DO [...] Norton Jr., D.O.06/22/2024 4:00 PM Dictation Location: [place] [address] Tech: Rae De Paz Transcribed By: AGUILAR 06/22/24 1600 Dictated By: Zay Norton Jr, DO 06/22/24 1552 Signed By: 06/22/24 1600 Normal [facility] Urinalysis macro (dipstick) panel (U)on 06-12-2024 Bilirubin, UA Negative Negative - 4(70) +++ mg/dL [facility] Blood, UA Negative Negative - 50 Dain/mcL [facility] Clarity, UA Clear [facility] Color, UA Yellow [facility] Glucose, UA Negative Negative - 1999(110) ++++ mg/dL [facility] Interpretation and review of laboratory results Abnormal [facility] Ketones, UA Negative Negative - 160(16) ++++ mg/dL [facility] Leukocytes, UA Positive Negative - 500+++ Chaparrita/mcL [facility] Comment on above: small Nitrite, UA Negative Negative - Positive [facility] pH, UA 6 5 - 9 [facility] Protein, UA Negative Negative - 1999(20) ++++ mg/dL [facility] Spec Grav, UA 1.025 1 - 1.03 [facility] Urobilinogen, UA 1.0 0.2 - 12 mg/dL [facility] Thyrotropin [Units/volume] i n Serum or PlasmaOrdered By: Brain Way on 05-24-2024 TSH Qn 2.42 m[IU]/L 0.45-5.33 [facility] TSH Qn Thyrotropin [Units/v olume] in Serum or Plasma 0.45-5.33 [facility] Urinalysis macro (dipstick) panel (U)on 05-10-2024 Bilirubin, UA Negative Negative - 4(70) +++ mg/dL [facility] Blood, UA Negative Negative - 50 Dain/mcL [facility] Clarity, UA Clear [facility] Color, UA Yellow [facility] Glucose, UA Negative Negative - 1999(110) ++++ mg/dL [facility] Interpretation and review of laboratory results Normal [facility] Ketones, UA Negative Negative - 160(16) ++++ mg/dL [facility] Leukocytes, UA Negative Negative - 500+++ Chaparrita/mcL [facility] Nitrite, UA Negative Negative - Positive [facility] pH, UA 6.5 5 - 9 [facility] Protein, UA Negative Negative - 2000(20) ++++ mg/dL [facility] Spec Grav, UA 1.020 1 - 1.03 [facility] Urobilinogen, UA 1.0 0.2 - 12 mg/dL [facility] IGP,APTIMA HPV,AGE GDLNon AGE GDLN ACOG TESTING Note . [facility] Comment on above: TESTS RESULT FLAG UN ITS REF RANGE LAB Clinician Provided Cytology Information Source.............Cervix No. of containers..01 ThinPrep Vial Age Algo ACOG Mariel... FLAG LEGEND: L-Low Normal,H-High Normal,LL-Alert Low,HH-Alert High <-Panic Low,>-Panic High,A-Abnormal,AA-Critical Abnormal Performed at: 01 [address] [id number] Christelle Galan MD, IGP, RFX APTIMA HPV ASCU Note . [facility] Comment on above: TESTS RESULT FLAG UN ITS REF RANGE LAB DIAGNOSIS: 02 NEGATIVE FOR INTRAEPITHELIAL LESION OR MALIGNANCY. Specimen adequacy: 02 Satisfactory for evaluation. Endocervical and/or squamous metaplastic cells (endocervical component) are present. Performed by: 02 Vanessa Ornelas, [employer] Systems Test Engineer . 02 Note: Note 02 The Pap [...] <-Panic Low,>-Panic High,A-Abnormal,AA-Critical Abnormal Performed at: [address] [facility] [address] [id number] Christelle Galan MD, Performed at: =G - [facility] [address] [id number] [place]: Christelle Galan MD, Phone: [phone] Performed at: [facility] [address] [id number] [place]: Christelle Galan MD, Phone: [phone] [facility] URETHRITIS/DISCHARGE PLUS VA GINITIS (HTRX)on 04-22-2024 ATOPOBIUM VAGINAE 0.000 [facility] ATOPOBIUM VAGINAE Not detected [facility] BVAB 2,3 (BACTERIAL VAGINOSIS ASSOCIATED BACTERIA 2, 3); MOBILUNCUS SPP 24.821 Abnormal [facility] BVAB 2,3 (BACTERIAL VAGINOSIS ASSOCIATED BACTERIA 2, 3); MOBILUNCUS SPP Detected Abnormal [facility] JANET ALBICANS, PARAPSILOSIS, TROPICALIS 0.000 [facility] JANET ALBICANS, PARAPSILOSIS, TROPICALIS Not detected [facility] JANET GLABRATA 0.000 [facility] JANET GLABRATA Not detected [facility] JANET KRUSEI 0.000 [facility] JANET KRUSEI Not detected [facility] CHLAMYDIA TRACHOMATIS 0.000 [facility] CHLAMYDIA TRACHOMATIS Not detected N [facility] GARDNERELLA VAGINALIS 0.000 [facility] GARDNERELLA VAGINALIS Not detected N [facility] Interpretation and review of laboratory results Abnormal [facility] MEGASPHAERA (TYPES 1, 2) 0.000 [facility] MEGASPHAERA (TYPES 1, 2) Not detected [facility] MYCOPLASMA GENITALIUM 0.000 [facility] MYCOPLASMA GENITALIUM Not detected N [facility] NEISSERIA GONORRHOEAE 0.000 [facility] NEISSERIA GONORRHOEAE Not detected N [facility] TRICHOMONAS VAGINALIS 0.000 [facility] TRICHOMONAS VAGINALIS Not detected N [facility] Urinalysis macro (dipstick) panel (U)on 04-20-2024 Bilirubin, UA Negative Negative - 4(70) +++ mg/dL [facility] Blood, UA Positive Negative - 50 Dain/mcL [facility] Comment on above: trace-intact Clarity, UA Clear [facility] Color, UA Yellow [facility] Glucose, UA Negative Negative - 1999(110) ++++ mg/dL [facility] Interpretation and review of laboratory results Abnormal [facility] Ketones, UA Negative Negative - 160(16) ++++ mg/dL [facility] Leukocytes, UA Trace Negative - 500+++ Chaparrita/mcL [facility] Nitrite, UA Negative Negative - Positive [facility] pH, UA 6.0 5 - 9 [facility] Protein, UA Negative Negative - 1999(20) ++++ mg/dL [facility] Spec Grav, UA 1.030 1 - 1.03 [facility] Urobilinogen, UA 0.2 0.2 - 12 mg/dL [facility] CBC without diffon Hematocrit (Bld) [Volume fraction] 37.3 % [facility] Hemoglobin (Bld) [Mass/Vol] 13.3 g/dL [facility] Rbc Mcv (Fl) By Automated Count 92.1 [facility] No Panel Informationon 04-13 [facility] Rubella IGG immune statuson 04-13-2024 Rubella immune IgG 1.33 [facility] Syphilis Total(Unknown Syphi lis Status)on 04-13-2024 Syphilis Non-Reactive [facility] TBH BOX TEST SENT OUTon 03-17 BOX TEST SENT OUT 04/13/24 [facility] Drug Screen, Urineon 024 Amphetamine/Methamphe tamine Negative [facility] Barbiturate Screen Urine Negative [facility] Benzodiazepine Screen, Urine Negative [facility] Cocaine Metabolite Negative [facility] Methadone,Meconium Negative [facility] Opiate Quantitative Urine Negative [facility] Oxycodone Negative [facility] Phencyclidine Negative [facility] Thc Marijuana, Urine Negative [facility] HCG ( test) Ql (U)o n 04-07-2024 Interpretation and review of laboratory results Abnormal [facility] Preg Test, Ur Positive [facility] Urinalysis macro (dipstick) panel (U)on 04-07-2024 Bilirubin, UA Negative Negative - (70) +++ mg/dL [facility] Blood, UA Negative Negative - 50 Dain/mcL [facility] Clarity, UA Clear [facility] Color, UA Yellow [facility] Glucose, UA Negative Negative - 1999(110) ++++ mg/dL [facility] Interpretation and review of laboratory results Abnormal [facility] Ketones, UA Negative Negative - 160(16) ++++ mg/dL [facility] Leukocytes, UA Positive Negative - 500+++ Chaparrita/mcL [facility] Comment on above: small Nitrite, UA Negative Negative - Positive [facility] pH, UA 7.0 5 - 9 [facility] Protein, UA Negative Negative - 1999(20) ++++ mg/dL [facility] Spec Grav, UA 1.025 1 - 1.03 [facility] Urobilinogen, UA 0.2 0.2 - 12 mg/dL [facility] Basophils Auto (Bld) [#/Vol] Ordered By: Addi Ortega on 04-06-2024 Basophils (Bld) [#/Vol] 0.0 10*3/uL 0.0-0.2 [facility] Basophils (Bld) [#/Vol] Automated basophil count 0.0-0.2 [facility] Basophils/100 WBC Auto (Bld) Ordered By: Addi Ortega on 04-06-2024 Basophils/100 WBC (Bld) 0.2 % . [facility] Basophils/100 WBC (Bld) Automated basophil % . [facility] Calcium [Mass/volume] in Ser um or PlasmaOrdered By: Addi Ortega on 04-06-2024 Calcium [Mass/Vol] 8.9 mg/dL 8.6-10.3 [facility] Calcium [Mass/Vol] Calcium [Mass/volume ] in Serum or Plasma 8.6-10.3 [facility] Carbon dioxide, total [Moles /volume] in Serum or PlasmaOrdered By: Addi Ortega on 04-06-2024 CO2 [Moles/Vol] 22.0 mmol/L 21.0-31.[address] [facility] CO2 [Moles/Vol] Carbon dioxide, tota l [Moles/volume] in Serum or Plasma 21.0-31.0 [facility] Chloride [Moles/volume] in S ghada or PlasmaOrdered By: Addi Ortega on 04-06-2024 Chloride [Moles/Vol] 106 mmol/L 98-107 [facility] Chloride [Moles/Vol] Chloride [Moles/vol ume] in Serum or Plasma 98-107 [facility] Cholesterol [Mass/volume] in Serum or PlasmaOrdered By: Addi Ortega on 04-06-2024 Cholesterol [Mass/Vol] 159 mg/dL 140-200 [facility] Comment on above: Chol less than 200 m g/dl low riskChol 201-239 mg/dl borderline riskChol 240 mg/dl and greater high risk Cholesterol [Mass/Vol] Cholesterol [Mass/volume] in Serum or Plasma 140-200 [facility] Comment on above: Chol less than 200 m g/dl low riskChol 201-239 mg/dl borderline riskChol 240 mg/dl and greater high risk Cholesterol in HDL [Mass/vol ume] in Serum or PlasmaOrdered By: Addi Ortega on 04-06-2024 Cholesterol in HDL [Mass/Vol] Serum or plasma high density lipoprotein (HDL) cholesterol measurement 23- [facility] Comment on above: HDL CHOL ATP-III CLA SSIFICATION Cardiovascular RiskHDL > or equal to 60 mg/dL LOWHDL < 40 mg/dL HIGH Cholesterol in LDL Calc [Mas s/Vol]Ordered By: Addi Ortega on 04-06-2024 Cholesterol in LDL [Mass/Vol] 95 mg/dL 0-100 [facility] Comment on above: LDL ATP III CLASSIFI CATIONLDL less than 100 mg/dL OptimalLDL 100-129 mg/dL Near or above optimalLDL 130-159 mg/dL Borderline highLDL 160-189 mg/dL HighLDL greater than 189 mg/dL Very high Cholesterol in LDL [Mass/Vol] Cholesterol in LDL [Mass/volume] in Serum or Plasma by calculation 0-100 [facility] Comment on above: LDL ATP III CLASSIFI CATIONLDL less than 100 mg/dL OptimalLDL 100-129 mg/dL Near or above optimalLDL 130-159 mg/dL Borderline highLDL 160-189 mg/dL HighLDL greater than 189 mg/dL Very high Cholesterol in VLDL Calc [Ma ss/Vol]Ordered By: Addi Ortega on 04-06-2024 Cholesterol in VLDL [Mass/Vol] 15 mg/dL [facility] Cholesterol in VLDL [Mass/Vol] Cholesterol in VLDL [Mass/volume] in Serum or Plasma by calculation [facility] Creatinine [Mass/volume] in Serum or PlasmaOrdered By: Addi Ortega on 04-06-2024 Creatinine [Mass/Vol] 0.44 mg/dL Low 0.60-1.20 [facility] Creatinine [Mass/Vol] Creatinine [Mass/v olume] in Serum or Plasma Low 0.60-1.20 [facility] Eosinophils Auto (Bld) [#/Vo l]Ordered By: Addi Ortega on 04-06-2024 Eosinophils (Bld) [#/Vol] 0.0 10*3/uL 0.0-0.45 [facility] Eosinophils (Bld) [#/Vol] Automated eosinophil count 0.0-0.45 [facility] Eosinophils/100 WBC Auto (Bl d)Ordered By: Addi Ortega on 04-06-2024 Eosinophils/100 WBC (Bld) 0.5 % . [facility] Eosinophils/100 WBC (Bld) Automated eosinophil % . [facility] Erythrocyte distribution wid th Auto (RBC) [Ratio]Ordered By: Addi Ortega on 04-06-2024 Erythrocyte distribution width (RBC) [Ratio] 12.7 % 11.9-15.3 [facility] Erythrocyte distribution width (RBC) [Ratio] Erythrocyte distribution width [Ratio] by Automated count 11.9-15.3 [facility] Glucose [Mass/volume] in Ser um or PlasmaOrdered By: Addi Ortega on 04-06-2024 Glucose [Mass/Vol] 82 mg/dL 70-100 [facility] Glucose [Mass/Vol] Glucose [Mass/volume ] in Serum or Plasma 70-100 [facility] Hematocrit Auto (Bld) [Volum e fraction]Ordered By: Addi Ortega on 04-06-2024 Hematocrit (Bld) [Volume fraction] 37.6 % 34.0-46.4 [facility] Hematocrit (Bld) [Volume fraction] Hematocrit [Volume Fraction] of Blood by Automated count 34.0-46.4 [facility] Hemoglobin [Mass/volume] in BloodOrdered By: Addi Ortega on 04-06-2024 Hemoglobin (Bld) [Mass/Vol] 13.3 g/dL 11.8-15.4 [facility] Hemoglobin (Bld) [Mass/Vol] Hemoglobin [Mass/volume] in Blood 11.8-15.4 [facility] Leukocytes [#/volume] correc hamilton for nucleated erythrocytes in Blood by Automated counOrdered By: Addi Ortega on 04-06-2024 WBC corrected for nucl RBC Auto (Bld) [#/Vol] 8.9 10*3/uL 3.8-11.6 [facility] WBC corrected for nucl RBC Auto (Bld) [#/Vol] Leukocytes [#/volume] corrected for nucleated erythrocytes in Blood by Automated coun 3.8-11.6 [facility] Lymphocytes Auto (Bld) [#/Vo l]Ordered By: Addi Ortega on 04-06-2024 Lymphocytes (Bld) [#/Vol] 2.5 10*3/uL 1.00-4.8 [facility] Lymphocytes (Bld) [#/Vol] Lymphocytes [#/volume] in Blood by Automated count 1.00-4.8 [facility] Lymphocytes/100 WBC Auto (Bl d)Ordered By: Addi Ortega on 04-06-2024 Lymphocytes/100 WBC (Bld) 28.8 % . [facility] Lymphocytes/100 WBC (Bld) Lymphocytes/100 leukocytes in Blood by Automated count . [facility] MCH Auto (RBC) [Entitic mass ]Ordered By: Addi Ortega on 04-06-2024 MCH (RBC) [Entitic mass] 32.9 pg 24.7-34.3 [facility] MCH (RBC) [Entitic mass] MCH [Entitic mass] by Automated count 24.7-34.3 [facility] MCHC Auto (RBC) [Mass/Vol]Or dered By: Addi Ortega on 04-06-2024 MCHC (RBC) [Mass/Vol] 35.4 g/dL High 32.0-35.0 [facility] MCHC (RBC) [Mass/Vol] MCHC [Mass/volume] by Automated count High 32.0-35.0 [facility] MCV Auto (RBC) [Entitic vol] Ordered By: Addi Ortega on 04-06-2024 MCV (RBC) [Entitic vol] 93.2 fL 80-100 [facility] MCV (RBC) [Entitic vol] MCV [Entitic volume] by Automated count 80-100 [facility] Monocytes Auto (Bld) [#/Vol] Ordered By: Addi Ortega on 04-06-2024 Monocytes (Bld) [#/Vol] 0.5 10*3/uL 0.0-0.8 [facility] Monocytes (Bld) [#/Vol] Automated blood monocyte count 0.0-0.8 [facility] Monocytes/100 WBC Auto (Bld) Ordered By: Addi Ortega on 04-06-2024 Monocytes/100 WBC (Bld) 5.6 % . [facility] Monocytes/100 WBC (Bld) Automated monocyte % . [facility] Neutrophils Auto (Bld) [#/Vo l]Ordered By: Addi Ortega on 04-06-2024 Neutrophils (Bld) [#/Vol] 5.8 10*3/uL 1.8-7.7 [facility] Neutrophils (Bld) [#/Vol] Neutrophils [#/volume] in Blood by Automated count 1.8-7.7 [facility] Neutrophils/100 WBC Auto (Bl d)Ordered By: Addi Ortega on 04-06-2024 Neutrophils/100 WBC (Bld) 64.9 % . [facility] Neutrophils/100 WBC (Bld) Automated neutrophil % . [facility] No Panel InformationOrdered By: Addi Ortega on 04-06-2024 Estimated GFR (CKD-EPI) > 60.0 mL/Min [facility] Creatinine Clearance (Chem N/A [facility] Nucleated erythrocytes [Pres ence] in Blood by Automated countOrdered By: Addi Ortega on 04-06-2024 Nucleated RBC Auto Ql (Bld) 0.0 /100{WBC} 0-0.5 [facility] Nucleated RBC Auto Ql (Bld) Nucleated erythrocytes [Presence] in Blood by Automated count 0-0.5 [facility] Platelet mean volume Auto (B ld) [Entitic vol]Ordered By: Addi Ortega on 04-06-2024 Platelet mean volume (Bld) [Entitic vol] 8.8 fL 6.3-10.7 [facility] Platelet mean volume (Bld) [Entitic vol] Platelet mean volume [Entitic volume] in Blood by Automated count 6.3-10.7 [facility] Platelets Auto (Bld) [#/Vol] Ordered By: Addi Ortega on 04-06-2024 Platelets (Bld) [#/Vol] 274 10*3/uL 150-450 [facility] Platelets (Bld) [#/Vol] Platelets [#/volume] in Blood by Automated count 150-450 [facility] Potassium [Moles/volume] in Serum or PlasmaOrdered By: Addi Ortega on 04-06-2024 Potassium [Moles/Vol] 4.0 mmol/L 3.5-5.1 [facility] Potassium [Moles/Vol] Potassium [Moles/v olume] in Serum or Plasma 3.5-5.1 [facility] RBC Auto (Bld) [#/Vol]Ordere d By: Addi Ortega on 04-06-2024 RBC (Bld) [#/Vol] 4.04 10*6/uL 3.60-5.00 [facility] RBC (Bld) [#/Vol] Erythrocytes [#/volu me] in Blood by Automated count 3.60-5.00 [facility] Serum or plasma anion gap de terminationOrdered By: Addi Ortega on 04-06-2024 Anion gap [Moles/Vol] 11.0 mmol/L 6.0-15.0 [facility] Anion gap [Moles/Vol] Serum or plasma an ion gap determination 6.0-15.0 [facility] Serum or plasma high density lipoprotein (HDL) cholesterol measurementOrdered By: Addi Ortega on 04-06-2024 Cholesterol in HDL [Mass/Vol] 48 mg/dL 23-92 [facility] Comment on above: HDL CHOL ATP-III CLA SSIFICATION Cardiovascular RiskHDL > or equal to 60 mg/dL LOWHDL < 40 mg/dL HIGH Serum or plasma total choles terol/high density lipoprotein (HDL) cholesterol mass ratOrdered By: Addi Ortega on 04-06-2024 Cholesterol.total/Cho lesterol in HDL [Mass ratio] 3.3 {ratio} <5.0 [facility] Cholesterol.total/Cho lesterol in HDL [Mass ratio] Serum or plasma total cholesterol/high density lipoprotein (HDL) cholesterol mass rat <5.0 [facility] Sodium [Moles/volume] in Ser um or PlasmaOrdered By: Addi Ortega on 04-06-2024 Sodium [Moles/Vol] 135 mmol/L Low 136-145 [facility] Sodium [Moles/Vol] Sodium [Moles/volume ] in Serum or Plasma Low 136-145 [facility] Thyrotropin [Units/volume] i n Serum or PlasmaOrdered By: Addi Ortega on 04-06-2024 TSH Qn 2.72 m[IU]/L 0.45-5.33 [facility] TSH Qn Thyrotropin [Units/v olume] in Serum or Plasma 0.45-5.33 [facility] Triglyceride [Mass/volume] i n Serum or PlasmaOrdered By: Addi Ortega on 04-06-2024 Triglyceride [Mass/Vol] 79 mg/dL 0-149 [facility] Comment on above: TRIG ATP III CLASSIF ICATIONTRIG less than 150 mg/dL NormalTRIG 150-199 mg/dL Borderline highTRIG 200-500 mg/dL High TRIG greater than 500 mg/dL Very highStandard traceable to the Center for Disease Conrtrol and Prevention (CDC) test method. Triglyceride [Mass/Vol] Triglyceride [Mass/volume] in Serum or Plasma 0-149 [facility] Comment on above: TRIG ATP III CLASSIF ICATIONTRIG less than 150 mg/dL NormalTRIG 150-199 mg/dL Borderline highTRIG 200-500 mg/dL High TRIG greater than 500 mg/dL Very highStandard traceable to the Center for Disease Conrtrol and Prevention (CDC) test method. Urea nitrogen [Mass/volume] in Serum or PlasmaOrdered By: Addi Ortega on 04-06-2024 Urea nitrogen [Mass/Vol] 7 mg/dL 03-09 [facility] Urea nitrogen [Mass/Vol] Urea nitrogen [Mass/volume] in Serum or Plasma 03-09 [facility] WBC Auto (Bld) [#/Vol]Ordere d By: Addi Ortega on 04-06-2024 WBC (Bld) [#/Vol] 8.9 10*3/uL 3.8-11.6 [facility] WBC (Bld) [#/Vol] Leukocytes [#/volume ] in Blood by Automated count 3.8-11.6 [facility] ED Note-Physicianon 03-20-20 ED Note-Physician ED [...] and Complexity of Problems Differential Diagnosis: [] [facility] Data External documents reviewed: [] My [...] with the patient. 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 Discussed return precautions. [...] medications Follow-up With When Contact Information Rogelio Pham In 3 days 03/21/[address], [address] [place] [address]- Business (1) Additional Instructions: DARWIN JONES In 3 days [address] [facility] [place] [address] [place] [address]- [phone] Business (1) Additional Instructions: Patient Education Threatened Miscarriage Subchorionic Hematoma Attestation Patient seen and evaluated by the physician pediatric dental assistant. Attending physician was present in the emergency department and supervised care. This visit was performed by both the physician and an APC. I performed all aspects of the MDM as documented. This report was transcribed using voice recognition software. Every effort was made to ensure accuracy, however, inadvertently computerized installer soft top mistakes may be present. Appropriate healthc (more content not included)... Normal [facility] Comment on above: Result Comment: Elec tronically Signed By: Hector Correa PA-C\.br\Date and Time Signed: 03/18/24 12:11 EDT\.br\Electronically Co-Signed By: Toan [place] DO\.br\Date and Time Co-Signed: 03/20/24 07:17 EDT ABO/Rhon 03-18-2024 ABO/Rh Negative Invalid Interpretation Code [facility] Comment on above: Performed By: #### 2 [id number] #### [facility] [address] [place] [address] BLOOD BANKOrdered By: Nikky Brennan on 03-18-2024 ABO/Rh Interp Negative Invalid Interpretation Code [facility] Subsection BMPon 03-18-2024 Anion gap [Moles/Vol] 12 mmol/L Normal 6-16 [facility] Comment on above: Performed By: #### 2 [id number] #### [facility] [address] [place] [address] Calcium [Mass/Vol] 9.2 mg/dL Normal 8.9-11.1 [facility] Comment on above: Performed By: #### 2 [id number] #### [facility] [address] [place] [address] Chloride [Moles/Vol] 105 mmol/L Normal 101-111 [facility] Comment on above: Performed By: #### 2 [id number] #### [facility] [address] [place] [address] CO2 [Moles/Vol] 23 mmol/L Normal 21-31 [facility] Comment on above: Performed By: #### 2 [id number] #### [facility] [address] [place] [address] Creatinine [Mass/Vol] 0.5 mg/dL Normal 0.5-1.3 [facility] Comment on above: Performed By: #### 2 [id number] #### [facility] [address] [place] [address] Glucose [Mass/Vol] 92 mg/dL Normal 55-199 [facility] Comment on above: Performed By: #### 2 [id number] #### [facility] [address] [place] [address] Potassium [Moles/Vol] 3.8 mmol/L Normal 3.5-5.3 [facility] Comment on above: Performed By: #### 2 [id number] #### [facility] [address] [place] [address] Sodium [Moles/Vol] 136 mmol/L Normal 135-145 [facility] Comment on above: Performed By: #### 2 [id number] #### [facility] [address] [place] [address] Urea nitrogen [Mass/Vol] 9 mg/dL Normal 5-21 [facility] Comment on above: Performed By: #### 2 [id number] #### [facility] [address] [place] [address] Urea nitrogen/Creatinine [Mass ratio] 18 No Units Normal 10-20 [facility] Comment on above: Performed By: #### 2 [id number] #### [facility] [address] [place] [address] [facility] [address] m[IU]/mL High 1-3 [facility] Comment on above: Result Comment: 'F N ON < 1 - 3' ' 0.2 - 1 WEEK = 5 TO 50' ' 1 - 2 WEEKS = 50 - 500' ' 2 - 3 WEEKS = 100 - 5000' ' 3 - 4 WEEKS = 500 - 21769' ' 4 - 5 WEEKS = 1000 - 53379' ' 5 - 6 WEEKS = 07508 - 371809' ' 6 - 8 WEEKS = 85455 - 182544' ' 8 - 12 WEEKS = 79998 - 729819' Performed By: #### 2 [id number] #### [facility] [address] [place] [address] CBC w/ Auto Diffon 4 Basophils/100 WBC (Bld) 0.6 % Normal 0.0-2.0 [facility] Comment on above: Performed By: #### 2 [id number] #### [facility] [address] [place] [address] Basophils/Leukocytes Auto (Bld) [Pure # fraction] 0.0 E9/L Normal 0.0-0.2 [facility] Comment on above: Performed By: #### 2 [id number] #### [facility] [address] [place] [address] Eosinophils (Bld) [#/Vol] 0.0 E9/L Normal 0.0-0.5 [facility] Comment on above: Performed By: #### 2 [id number] #### [facility] [address] [place] [address] Eosinophils/100 WBC (Bld) 0.5 % Normal 0.0-8.0 [facility] Comment on above: Performed By: #### 2 [id number] #### [facility] [address] [place] [address] Erythrocyte distribution width (RBC) [Ratio] 12.5 % Normal 10.9-14.2 [facility] Comment on above: Performed By: #### 2 [id number] #### [facility] [address] [place] [address] Hematocrit (Bld) [Volume fraction] 40.2 % Normal 34.0-46.0 [facility] Comment on above: Performed By: #### 2 [id number] #### [facility] [address] [place] [address] Hemoglobin (Bld) [Mass/Vol] 13.8 g/dL Normal 12.0-16.0 [facility] Comment on above: Performed By: #### 2 [id number] #### [facility] [address] [place] [address] Lymphocytes (Bld) [#/Vol] 2.4 E9/L Normal 1.0-4.0 [facility] Comment on above: Performed By: #### 2 [id number] #### [facility] [address] [place] [address] Lymphocytes/100 WBC (Bld) 28.4 % Normal 14.0-50.0 [facility] Comment on above: Performed By: #### 2 [id number] #### [facility] [address] [place] [address] MCH (RBC) [Entitic mass] 32.3 pg Normal 27.0-34.0 [facility] Comment on above: Performed By: #### 2 [id number] #### [facility] [address] [place] [address] MCHC (RBC) [Mass/Vol] 34.3 g/dL Normal 31.4-36.0 [facility] Comment on above: Performed By: #### 2 [id number] #### [facility] [address] [place] [address] MCV (RBC) [Entitic vol] 94.2 fL Normal 80.0-100.0 [facility] Comment on above: Performed By: #### 2 [id number] #### [facility] [address] [place] [address] Monocytes (Bld) [#/Vol] 0.4 E9/L Normal 0.2-1.0 [facility] Comment on above: Performed By: #### 2 [id number] #### [facility] [address] [place] [address] Neutrophils (Bld) [#/Vol] 5.4 E9/L Normal 2.0-7.5 [facility] Comment on above: Performed By: #### 2 [id number] #### [facility] [address] [place] [address] Neutrophils/100 WBC (Bld) 65.4 % Normal 36.0-75.0 [facility] Comment on above: Performed By: #### 2 [id number] #### [facility] [address] [place] [address] Platelet mean volume (Bld) [Entitic vol] 8.5 fL Normal 6.4-10.8 [facility] Comment on above: Performed By: #### 2 [id number] #### [facility] [address] [place] [address] Platelets (Bld) [#/Vol] 249.0 E9/L Normal 150.0-500. 0 [facility] Comment on above: Performed By: #### 2 [id number] #### [facility] [address] [place] [address] RBC (Bld) [#/Vol] 4.3 E12/L Normal 4.3-5.9 [facility] Comment on above: Performed By: #### 2 [id number] #### [facility] [address] [place] [address] WBC corrected for nucl RBC Auto (Bld) [#/Vol] 8.3 E9/L Normal 4.0-11.0 [facility] Comment on above: Performed By: #### 2 [id number] #### [facility] [address] [place] [address] CHEMISTRYOrdered By: SYSTEM SYSTEM on 03-18-2024 Anion [...] 199 mg/[place] [address] m[IU]/mL High 1 - 3 mIU/mL [facility] Comment on above: Result Comment: 'F N ON < 1 - 3' ' 0.2 - 1 WEEK = 5 TO 50' ' 1 - 2 WEEKS = 50 - 500' ' 2 - 3 WEEKS = 100 - 5000' ' 3 - 4 WEEKS = 500 - 06064' ' 4 - 5 WEEKS = 1000 - 00780' ' 5 - 6 WEEKS = 60379 - 083294' ' 6 - 8 WEEKS = 92282 - 082443' ' 8 - 12 WEEKS = 58656 - 335622' Potassium [Moles/Vol] 3.8 mmol/L Normal 3.5 - 5.3 mmol/L Remisol Chem Sodium [Moles/Vol] 136 mmol/L Normal 135 - 145 mmol/L [facility] Chem Urea nitrogen [Mass/Vol] 9 mg/dL Normal 5 - 21 mg/dL [facility] Chem Urea nitrogen/Creatinine [Mass ratio] 18 mg/mg Normal 10 - 20 Remisol Chem ED Clinical Summaryon 2023 ED Clinical Summary ED Clinical Summary [place] [address] ED Clinical Summary Person Information Name: TAWNYA HERRING Deysi/[facility] Age: 28 Years : 1995 Sex: Female Language: Ukrainian PCP: DARWIN JONES CNP Marital Status: Single Phone: [phone] Visit Id: Visit Reason: Vaginal bleeding - [...] 12:15:02 03/18/2024 12:15:02 03/18/2024 12:15:02 ADDRESS: [address] [place] [phone] PHYS DOC NOTES: MEDICAL INFORMATION: Prescriptions Given: Medications to Continue with No Changes Other Medications citalopram (CeleXA 20 mg Tab) 1 Tablets By Mouth every day. PATIENT EDUCATION INFORMATION: Instructions: Threatened Miscarriage; Subchorionic Hematoma Follow up: With: Address: When: Rogelio Nath [address] [place], [place] [id number] Business (1) In 3 days 03/21/2024 With: Address: When: DARWIN JONES [address] [place] [address] [place] [phone] Business (1) In 3 days DIAGNOSIS: Subchorionic bleed; Threatened Normal [facility] ED Patient Summaryon 024 ED Patient Summary ED Patient Summary [address] [address] Patient Discharge Instructions Person Information Name: TAWNYA HERRING Age: 28 Years Arrival Date: 03/18/2024 08:06:19 Discharge Diagnosis: Subchorionic bleed; Threatened Primary Care Physician: DARWIN JONES CNP Provider Information Primary Provider: Toan Lake DO Advanced Associate Professor Of English:None The exam and treatment you received in the Emergency Department were for an urgent problem and are not intended as complete care. It is important that you follow up with a doctor, nurse practitioner, or physician?s pediatric dental assistant for ongoing care. If your symptoms [...] Instructions: With: Address: When: Rogelio Nath [address] [facility] [address], [place] [address] Business (1) In 3 days 03/21/2024 With: Address: When: DARWIN JONES [address] [place] [phone] [facility] (1) In 3 days In the event that this physician does not participate in your insurance network, please consult with your insurance company to find a nearby participating provider. Patient Education Materials: Threatened Miscarriage; Subchorionic Hematoma A MESSAGE TO ALL PATIENTS REGARDING OPIOIDS PRESCRIPTION OPIOIDS: WHAT YOU NEED TO KNOW Prescription opioids can be used to help relieve ilxftuan-xj-kzqwuz pain and are often prescribed following a [...] you be (more content not included)... Normal [facility] HEMATOLOGYOrdered By: SYSTEM SYSTEM on 03-18-2024 [...] 24 Bilirubin Ql (U) Negative Normal Negative [facility] Comment on above: Performed By: #### 4 [id number] #### [facility] [address] [place] [address] Clarity (U) Clear Normal Clear [facility] Comment on above: Performed By: #### 4 [id number] #### [facility] [address] [place] [address] Color (U) Yellow Normal Yellow [facility] Comment on above: Result Comment: Micr oscopic readings are only performed on those samples that meet specific criteria set forth by [facility]. Performed By: #### 4 [id number] #### [facility] [address] [place] [address] Epithelial cells.squamous Auto (Urine sed) [#/Area] 0-2 Invalid Interpretation Code [facility] Comment on above: Performed By: #### 4 [id number] #### [facility] [address] [place] [address] Glucose Ql (U) Negative Normal Negative [facility] Comment on above: Performed By: #### 4 [id number] #### [facility] [address] [place] [address] Hemoglobin Auto test strip (U) [Mass/Vol] 3+ mg/dL Abnormal Negative [facility] Comment on above: Performed By: #### 4 [id number] #### [facility] [address] [place] [address] Ketones Auto test strip Ql (U) Negative Normal Negative [facility] Comment on above: Performed By: #### 4 [id number] #### [facility] [address] [place] [address] Leukocyte esterase Auto test strip Ql (U) 25 Chaparrita/uL Normal Negative [facility] Comment on above: Performed By: #### 4 [id number] #### [facility] [address] [place] [address] Mucus Auto Ql (U) Trace Normal Negative [facility] Comment on above: Performed By: #### 4 [id number] #### [facility] [address] [place] [address] Nitrite Auto test strip Ql (U) Negative Normal Negative [facility] Comment on above: Performed By: #### 4 [id number] #### [facility] [address] [place] [address] pH (U) 7.5 [pH] Invalid Interpretation Code 5.0-9.0 [facility] Comment on above: Performed By: #### 4 [id number] #### [facility] [address] [place] [address] Protein Ql (U) Trace Abnormal Negative [facility] Comment on above: Performed By: #### 4 [id number] #### [facility] [address] [place] [address] RBC Ql (U) 31-75 Abnormal 0-3 [facility] Comment on above: Performed By: #### 4 [id number] #### [facility] [address] [place] [address] Specific gravity (U) [Rel density] 1.023 Invalid Interpretation Code 1.005-1.03 0 [facility] Comment on above: Performed By: #### 4 [id number] #### [facility] [address] [place] [address] Urobilinogen (U) [Mass/Vol] Negative Normal Negative [facility] Comment on above: Performed By: #### 4 [id number] #### [facility] [address] [place] [address] WBC Auto (Urine sed) [#/Area] 0-5 Normal 0-5 [facility] Comment on above: Performed By: #### 4 [id number] #### [facility] [address] [place] [address] Type of Urine collection method Clean Catch Normal [facility] Comment on above: Performed By: #### 4 [id number] #### [facility] [address] [place] [address] URINALYSISOrdered By: SYSTEM SYSTEM on 03-18-2024 Bilirubin Ql (U) Negative Normal Negativemg /dL [facility] UA Auto SS Clarity (U) Clear (03/18/24 8:17 AM) Normal Clear [facility] UA Auto SS Color (U) Yellow 1 (03/18/24 8:17 AM) Normal Yellow [facility] UA Auto SS Comment on above: Interpretive Data: M icroscopic readings are only performed on those samples that meet specific criteria set forth by [facility]. Epithelial cells.squamous Auto (Urine sed) [...] intrauterine , with heart rate 125 bpm. Dyer-rump length 3.22 mm. Mean sac diameter 1.74 [...] Transabdominal Ultrasound Performed Transvaginal Ultrasound Performed Normal [facility] US Transvaginalon 03-18-2024 US Transvaginal Exam Date/Time: 03/18/2024 11:41 EDT Reason for Exam: Vaginal bleeding Report Please review ultrasound pelvis for ultrasound transvaginal report. Ordering Provider: Hector Correa FINAL REPORT Dictated: 03/18/2024 12:06 pm Luis Alfredo Bunch MD Signed (Electronic Signature): 03/18/2024 12:06 pm Signed by: Luis Alfredo Bunch MD Transcribed by: EDWIN Technologist: MARCOS Normal [facility] eGFRon 03-18-2024 eGFR 131 mL/min/1.73 m2 Normal >=59 [facility] Comment on above: Order Comment: Order added by Discern Expert. Performed By: #### 1 [id number] #### [facility] [address] [place] [address] Serum or plasma progesterone measurement (mass/volume)Ordered By: Brain Way on 02-24-2024 Progesterone [Mass/Vol] 9.9 ng/mL . [facility] Comment on above: Follicular phase 0.1 - 0.9 Luteal phase 1.8 - 23.9 Ovulation phase 0.1 - 12.0 First trimester 11.0 - 44.3 Second trimester 25.4 - 83.3 Third trimester 58.7 - 214.0 Postmenopausal 0.0 - 0.1Performed at: [facility] [id number] [place], [place] [id number] Director: Alexis Ashton PhD, Phone: [phone] Serum or plasma progesterone measurement (mass/volume)Ordered By: Brain Way on 01-24-2024 Progesterone [Mass/Vol] 8.5 ng/mL . [facility] Comment on above: Follicular phase 0.1 - 0.9 Luteal phase 1.8 - 23.9 Ovulation phase 0.1 - 12.0 First trimester 11.0 - 44.3 Second trimester 25.4 - 83.3 Third trimester 58.7 - 214.0 Postmenopausal 0.0 - 0.1Performed at: [facility] [place], [place] [id number] Director: Alexis Ashton PhD, Phone: [phone] Serum or plasma progesterone measurement (mass/volume)Ordered By: Brain Way on 12-27-2023 Progesterone [Mass/Vol] 13.3 ng/mL . [facility] Comment on above: Follicular phase 0.1 - 0.9 Luteal phase 1.8 - 23.9 Ovulation phase 0.1 - 12.0 First trimester 11.0 - 44.3 Second trimester 25.4 - 83.3 Third trimester 58.7 - 214.0 Postmenopausal 0.0 - 0.1Performed at: [address] [place], [place] [id number] Director: Alexis Ashton PhD, Phone: [phone] Serum or plasma progesterone measurement (mass/volume)Ordered By: Brain Way on 11-30-2023 Progesterone [Mass/Vol] 16.9 ng/mL . [facility] Comment on above: Follicular phase 0.1 - 0.9 Luteal phase 1.8 - 23.9 Ovulation phase 0.1 - 12.0 First trimester 11.0 - 44.3 Second trimester 25.4 - 83.3 Third trimester 58.7 - 214.0 Postmenopausal 0.0 - 0.1Performed at: [employer] [address] [place], [place] [id number] Director: Alexis Ashton PhD, Phone: [phone] Serum or plasma progesterone measurement (mass/volume)Ordered By: Brain Way on 11-01-2023 Progesterone [Mass/Vol] 7.1 ng/mL . [facility] Comment on above: Follicular phase 0.1 - 0.9 Luteal phase 1.8 - 23.9 Ovulation phase 0.1 - 12.0 First trimester 11.0 - 44.3 Second trimester 25.4 - 83.3 Third trimester 58.7 - 214.0 Postmenopausal 0.0 - 0.1Performed at: [address] [place], [place] [id number] Director: Alexis Ashton PhD, Phone: [phone] Serum or plasma progesterone measurement (mass/volume)Ordered By: Brain Way on 10-01-2023 Progesterone [Mass/Vol] 0.9 ng/mL . [facility] Comment on above: Follicular phase 0.1 - 0.9 Luteal phase 1.8 - 23.9 Ovulation phase 0.1 - 12.0 First trimester 11.0 - 44.3 Second trimester 25.4 - 83.3 Third trimester 58.7 - 214.0 Postmenopausal 0.0 - 0.1Performed at: [address] [place], [place] [id number] Director: Alexis Ashton PhD, Phone: [phone] Ambulatory Visit Summaryon 0 09-29-2023 Ambulatory Visit [...] JONES CNP When: Where: [address] [facility] [place] [address]- Medications What How Much When Why Instructions New amoxicillin-clavulanate (Augmentin 875 mg oral tablet) 1 Tablets By Mouth Every 12 hours Sinusitis BMI 38.0-38.9,adult Duration: 10 Days Pickup at [facility] New methylPREDNISolone (Medrol Dosepack 4 mg Tab) 1 Packets By Mouth As Directed Sinusitis BMI 38.0-38.9,adult Duration: 6 Days as directed on package labeling Pickup at [facility] Unchanged citalopram (CeleXA 20 mg Tab) 1 Tablets By Mouth Every day Contact prescribing physician if questions or concerns Unchanged citalopram (citalopram 20 mg Tab) Contact prescribing physician if questions or concerns Unchanged pyridoxine (Vitamin B6 100 mg Tab) By Mouth Every day Contact prescribing physician if questions or concerns Pharmacy Information [facility]: [address] [place], [place] [id number] [phone] Allergies No Known Allergies No Known Medication [...] with voice recognition software. Occasional wrong-word or ?hnlww-f-zxhy? substitutions may have occurred due to the [...] with improvement. She does not use any kmle-kgp-ykidhjl Flonase and has not tried any other [...] day(s), # 20 tab(s), Refills(s) 0, Pharmacy: [facility], 170.2, cm, 09/29/23 10:44:00 EST, Height/Length Dosing, 112, kg, 09/29/23 10:44:00 EST, Weight Dosing methylPREDNISolone, = 1 packet(s), Oral, As Directed, as directed on package labeling, X 6 day(s), # 21 tab(s), Refills(s) 0, Pharmacy: [facility], 170.2, cm, 09/29/23 10:44:00 EST, Height/Length Dosing, 112, kg, 09/29/23 10:44:00 EST, Weight Dosing 2. BMI 38.0-38.9,adult (Z68.38: Body mass index [BMI] 38.0-38.9, adult) The standard range for ages 18 and olde (more content not included)... Normal [facility] Comment on above: Result Comment: Elec tronically [...] ? Medicines that treat allergies (antihistamines). ? Ufab-ywl-bttkgaa pain relievers. ? If caused by bacteria, [...] home: Medicines ? 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 ? Do not smoke. Avoid being around people who are smoking (secondhand smoke). ? Keep all follow-up visits. This is important. Contact a health care provider if: ? You have a fever. ? Your symptoms get (more content not included)... Normal [facility] Alanine aminotransferase [En zymatic activity/volume] in Serum or PlasmaOrdered By: Addi Ortega on 04-08-2023 ALT [Catalytic activity/Vol] 28 U/L 7-52 [facility] Albumin [Mass/volume] in Ser um or Plasma by Bromocresol green (BCG) dye binding methoOrdered By: Addi Ortega on 04-08-2023 Albumin BCG dye [Mass/Vol] 4.8 g/dL 3.5-5.7 [facility] Alkaline phosphatase [Enzyma tic activity/volume] in Serum or PlasmaOrdered By: Addi Ortega on 04-08-2023 ALP [Catalytic activity/Vol] 61 U/L 34-104 [facility] Aspartate aminotransferase [ Enzymatic activity/volume] in Serum or PlasmaOrdered By: Addi Ortega on 04-08-2023 AST [Catalytic activity/Vol] 13 U/L 13-39 [facility] Basophils Auto (Bld) [#/Vol] Ordered By: Addi Ortega on 04-08-2023 Basophils (Bld) [#/Vol] 0.0 10*3/uL 0.0-0.2 [facility] Basophils/100 WBC Auto (Bld) Ordered By: Addi Ortega on 04-08-2023 Basophils/100 WBC (Bld) 0.4 % . [facility] Bilirubin.total [Mass/volume ] in Serum or PlasmaOrdered By: Addi Ortega on 04-08-2023 Bilirubin [Mass/Vol] 0.4 mg/dL 0.3-1.0 [facility] Calcium [Mass/volume] in Ser um or PlasmaOrdered By: Addi Ortega on 04-08-2023 Calcium [Mass/Vol] 9.5 mg/dL 8.6-10.3 [facility] Carbon dioxide, total [Moles /volume] in Serum or PlasmaOrdered By: Addi Ortega on 04-08-2023 CO2 [Moles/Vol] 25.4 mmol/L 21.0-31.[address] [facility] Chloride [Moles/volume] in S ghada or PlasmaOrdered By: Addi Ortega on 04-08-2023 Chloride [Moles/Vol] 106 mmol/L 98-107 [facility] Cholesterol [Mass/volume] in Serum or PlasmaOrdered By: Addi Ortega on 04-08-2023 Cholesterol [Mass/Vol] 162 mg/dL 140-200 [facility] Comment on above: Chol less than 200 m g/dl low riskChol 201-239 mg/dl borderline riskChol 240 mg/dl and greater high risk Cholesterol in LDL Calc [Mas s/Vol]Ordered By: Addi Ortega on 04-08-2023 Cholesterol in LDL [Mass/Vol] 99 mg/dL 0-100 [facility] Comment on above: LDL ATP III CLASSIFI CATIONLDL less than 100 mg/dL OptimalLDL 100-129 mg/dL Near or above optimalLDL 130-159 mg/dL Borderline highLDL 160-189 mg/dL HighLDL greater than 189 mg/dL Very high Cholesterol in VLDL Calc [Ma ss/Vol]Ordered By: Addi Ortega on 04-08-2023 Cholesterol in VLDL [Mass/Vol] 18 mg/dL [facility] Creatinine [Mass/volume] in Serum or PlasmaOrdered By: Addi Ortega on 04-08-2023 Creatinine [Mass/Vol] 0.59 mg/dL 0.60-1.20 [facility] Eosinophils Auto (Bld) [#/Vo l]Ordered By: Addi Ortega on 04-08-2023 Eosinophils (Bld) [#/Vol] 0.1 10*3/uL 0.0-0.45 [facility] Eosinophils/100 WBC Auto (Bl d)Ordered By: Addi Ortega on 04-08-2023 Eosinophils/100 WBC (Bld) 1.3 % . [facility] Erythrocyte distribution wid th Auto (RBC) [Ratio]Ordered By: Addi Ortega on 04-08-2023 Erythrocyte distribution width (RBC) [Ratio] 12.6 % 11.9-15.3 [facility] Globulin Calc (S) [Mass/Vol] Ordered By: Addi Ortega on 04-08-2023 Globulin (S) [Mass/Vol] 2.7 g/dL [facility] Glucose [Mass/volume] in Ser um or PlasmaOrdered By: Addi Ortega on 04-08-2023 Glucose [Mass/Vol] 83 mg/dL 70-100 [facility] Hematocrit Auto (Bld) [Volum e fraction]Ordered By: Addi Ortega on 04-08-2023 Hematocrit (Bld) [Volume fraction] 39.3 % 34.0-46.4 [facility] Hemoglobin [Mass/volume] in BloodOrdered By: Addi Ortega on 04-08-2023 Hemoglobin (Bld) [Mass/Vol] 13.6 g/dL 11.8-15.4 [facility] Leukocytes [#/volume] correc hamilton for nucleated erythrocytes in Blood by Automated counOrdered By: Addi Ortega on 04-08-2023 WBC corrected for nucl RBC Auto (Bld) [#/Vol] 7.6 10*3/uL 3.8-11.6 [facility] Lymphocytes Auto (Bld) [#/Vo l]Ordered By: Addi Ortega on 04-08-2023 Lymphocytes (Bld) [#/Vol] 2.9 10*3/uL 1.00-4.8 [facility] Lymphocytes/100 WBC Auto (Bl d)Ordered By: Addi Ortega on 04-08-2023 Lymphocytes/100 WBC (Bld) 38.6 % . [facility] MCH Auto (RBC) [Entitic mass ]Ordered By: Addi Ortega on 04-08-2023 MCH (RBC) [Entitic mass] 31.6 pg 24.7-34.3 [facility] MCHC Auto (RBC) [Mass/Vol]Or dered By: Addi Ortega on 04-08-2023 MCHC (RBC) [Mass/Vol] 34.5 g/dL 32.0-35.0 [facility] MCV Auto (RBC) [Entitic vol] Ordered By: Addi Ortega on 04-08-2023 MCV (RBC) [Entitic vol] 91.7 fL 80-100 [facility] Monocytes Auto (Bld) [#/Vol] Ordered By: Addi Ortega on 04-08-2023 Monocytes (Bld) [#/Vol] 0.4 10*3/uL 0.0-0.8 [facility] Monocytes/100 WBC Auto (Bld) Ordered By: Addi Ortega on 04-08-2023 Monocytes/100 WBC (Bld) 5.8 % . [facility] Neutrophils Auto (Bld) [#/Vo l]Ordered By: Addi Ortega on 04-08-2023 Neutrophils (Bld) [#/Vol] 4.1 10*3/uL 1.8-7.7 [facility] Neutrophils/100 WBC Auto (Bl d)Ordered By: Addi Ortega on 04-08-2023 Neutrophils/100 WBC (Bld) 53.9 % . [facility] No Panel InformationOrdered By: Addi Ortega on 04-08-2023 Estimated GFR (CKD-EPI) > 60.0 mL/Min [facility] Nicotine Metabolite Negative Cutoff=25 [facility] Comment on above: Performed at: - [address] [id number] Director: Catherine Mendoza MD, Phone: [phone] Pharmacy Creatinine Clearance (Chem N/A [facility] Nucleated erythrocytes [Pres ence] in Blood by Automated countOrdered By: Addi Ortega on 04-08-2023 Nucleated RBC Auto Ql (Bld) 0.0 /100{WBC} 0-0.5 [facility] Platelet mean volume Auto (B ld) [Entitic vol]Ordered By: Addi Ortega on 04-08-2023 Platelet mean volume (Bld) [Entitic vol] 8.6 fL 6.3-10.7 [facility] Platelets Auto (Bld) [#/Vol] Ordered By: Addi Ortega on 04-08-2023 Platelets (Bld) [#/Vol] 361 10*3/uL 150-450 [facility] Potassium [Moles/volume] in Serum or PlasmaOrdered By: Addi Ortega on 04-08-2023 Potassium [Moles/Vol] 4.6 mmol/L 3.5-5.1 [facility] Protein [Mass/volume] in Ser um or PlasmaOrdered By: Addi Ortega on 04-08-2023 Protein [Mass/Vol] 7.5 g/dL 6.4-8.9 [facility] RBC Auto (Bld) [#/Vol]Ordere d By: Addi Ortega on 04-08-2023 RBC (Bld) [#/Vol] 4.29 10*6/uL 3.60-5.00 [facility] Serum or plasma albumin/glob ulin mass ratioOrdered By: Addi Ortega on 04-08-2023 Albumin/Globulin [Mass ratio] 1.8 {ratio} [facility] Serum or plasma anion gap de terminationOrdered By: Addi Ortega on 04-08-2023 Anion gap [Moles/Vol] 12.2 mmol/L 6.0-15.0 [facility] Serum or plasma high density lipoprotein (HDL) cholesterol measurementOrdered By: Addi Ortega on 04-08-2023 Cholesterol in HDL [Mass/Vol] 45 mg/dL 23-92 [facility] Comment on above: HDL CHOL ATP-III CLA SSIFICATION Cardiovascular RiskHDL > or equal to 60 mg/dL LOWHDL < 40 mg/dL HIGH Serum or plasma total choles terol/high density lipoprotein (HDL) cholesterol mass ratOrdered By: Addi Ortega on 04-08-2023 Cholesterol.total/Cho lesterol in HDL [Mass ratio] 3.6 {ratio} <5.0 [facility] Sodium [Moles/volume] in Ser um or PlasmaOrdered By: Addi Ortega on 04-08-2023 Sodium [Moles/Vol] 139 mmol/L 136-145 [facility] Thyrotropin [Units/volume] i n Serum or PlasmaOrdered By: Addi Ortega on 04-08-2023 TSH Qn 4.55 m[IU]/L 0.45-5.33 [facility] Triglyceride [Mass/volume] i n Serum or PlasmaOrdered By: Addi Ortega on 04-08-2023 Triglyceride [Mass/Vol] 92 mg/dL 0-149 [facility] Comment on above: TRIG ATP III CLASSIF ICATIONTRIG less than 150 mg/dL NormalTRIG 150-199 mg/dL Borderline highTRIG 200-500 mg/dL High TRIG greater than 500 mg/dL Very highStandard traceable to the Center for Disease Conrtrol and Prevention (CDC) test method. Urea nitrogen [Mass/volume] in Serum or PlasmaOrdered By: Addi Ortega on 04-08-2023 Urea nitrogen [Mass/Vol] 18 mg/dL 7-25 [facility] WBC Auto (Bld) [#/Vol]Ordere d By: Addi Ortega on 04-08-2023 WBC (Bld) [#/Vol] 7.6 10*3/uL 3.8-11.6 [facility] C Urineon 03-24-2023 Bacteria identified Cx [...] Locations R1: This test was performed at: [facility], [address] [place] [address], [id number] , [place], Normal [facility] Comment on above: Performed By: #### 2 [id number], [id number], [id number], [id number], [id number] #### [facility] [address] [place] [address] Abdomen/Pelvis w/o Contra ston 03-23-2023 CT [...] Oral contrast amount in ml's: 0 Normal [facility] Discharge Instructionson Discharge Instructions [id number] Normal [facility] ED Note-Physicianon 03-23-20 ED Note-Physician Basic [...] any medications. States that she was at [facility], where she did wait about 5 [...] and Complexity of Problems Differential Diagnosis: [] [facility] Data External documents reviewed: [] My [...] day(s), # 28 cap(s), Refills(s) 0, Pharmacy: [facility], 170.2, cm, 03/22/23 20:14:00 EDT, Height/Length Dosing, 113.5, kg, 03/22/23 20:14:00 EDT, Weight Dosing ketorolac, 30 mg = 1 mL, Injection, IV Push, Once, Stop date 03/22/23 20:51:00 EDT, STAT, Start date 03/22/23 20:51:00 EDT, 03/22/23 20:51:00 EDT ondansetron, 4 mg = 2 mL, Injection, IV Push, Once, Stop date 03/22 (more content not included)... Normal [facility] Comment on above: Result Comment: Elec tronically Signed By: Hector Correa PA-C\.br\Date and Time Signed: 03/22/23 23:35 EDT\.br\Electronically Co-Signed By: Gabriel Curtis DO.br\Date and Time Co-Signed: 03/23/23 03:21 EDT RAD - Preliminary Cat Scan R eporton 03-23-2023 RAD - Preliminary Cat Scan Report [id number]:127 Normal [facility] Auto Diffon 03-22-2023 Basophils/100 WBC (Bld) 0.5 % Normal 0.0-2.0 [facility] Comment on above: Order Comment: Order Added by Discern Expert. Performed By: #### 2 415341, 0565230, 41787344, 3446323, 3594198, 2020008 #### [facility] [address] [place] [address] Basophils/Leukocytes Auto (Bld) [Pure # fraction] 0.0 E9/L Normal 0.0-0.2 [facility] Comment on above: Order Comment: Order Added by Discern Expert. Performed By: #### 2 765674, 8267154, 45370256, 3843553, 4071591, 0808719 #### [facility] [address] [place] [address] 90941 Eosinophils/100 WBC (Bld) 1.5 % Normal 0.0-8.0 [facility] Comment on above: Order Comment: Order Added by Discern Expert. Performed By: #### 2 078841, 9536315, 04745841, 5412876, 2654421, 3379179 #### [facility] [address] [place] [address] 86557 Eosinophils/Leukocyte s Auto (Bld) [Pure # fraction] 0.1 E9/L Normal 0.0-0.5 [facility] Comment on above: Order Comment: Order Added by Discern Expert. Performed By: #### 2 065749, 7493635, 46378927, 8593736, 9807984, 5185468 #### [facility] [address] [place] [address] 19082 Lymphocytes/100 WBC (Bld) 34.9 % Normal 14.0-50.0 [facility] Comment on above: Order Comment: Order Added by Discern Expert. Performed By: #### 2 760989, 3773829, 60760131, 2452941, 1342932, 9399917 #### [facility] [address] [place] [address] 84343 Lymphocytes/Leukocyte s Auto (Bld) [Pure # fraction] 3.4 E9/L Normal 1.0-4.0 [facility] Comment on above: Order Comment: Order Added by Discern Expert. Performed By: #### 2 134711, 5921937, 99419454, 4339180, 1175272, 3003363 #### [facility] [address] [place] [address] Monocytes/100 WBC (Bld) 6.0 % Normal 4.0-14.0 [facility] Comment on above: Order Comment: Order Added by Discern Expert. Performed By: #### 2 502856, 9095974, 77497677, 5001820, 5808287, 3424986 #### [facility] [address] [place] [address] 73891 Monocytes/Leukocytes Auto (Bld) [Pure # fraction] 0.6 E9/L Normal 0.2-1.0 [facility] Comment on above: Order Comment: Order Added by Discern Expert. Performed By: #### 2 116596, 8064692, 18997462, 4346781, 2483142, 1673600 #### [facility] [address] [place] [address] 54893 Neutrophils/100 WBC (Bld) 57.1 % Normal 36.0-75.0 [facility] Comment on above: Order Comment: Order Added by Discern Expert. Performed By: #### 2 050827, 9229719, 99362163, 0137309, 8441465, 4492934 #### [facility] [address] [place] [address] Neutrophils/Leukocyte s Auto (Bld) [Pure # fraction] 5.6 E9/L Normal 2.0-7.5 [facility] Comment on above: Order Comment: Order Added by Discern Expert. Performed By: #### 2 967803, 6700232, 18634282, 0489670, 7492958, 7718261 #### [facility] [address] [place] [address] 55783 BMPon 03-22-2023 Creatinine [Mass/Vol] 0.5 mg/dL Normal 0.5-1.3 [facility] Comment on above: Performed By: #### 2 649188, 8565082, 90974261, 0630219, 1710047, 7988859 #### [facility] [address] [place] [address] Urea nitrogen [Mass/Vol] 15 mg/dL Normal 5-21 [facility] Comment on above: Performed By: #### 2 057595, 2233184, 83124364, 8943757, 5947340, 8523361 #### [facility] [address] [place] [address] Urea nitrogen/Creatinine [Mass ratio] 30 No Units High 10-20 [facility] Comment on above: Performed By: #### 2 690198, 4591201, 11976777, 0296916, 9017217, 3596563 #### [facility] [address] [place] [address] Anion gap [Moles/Vol] 15 mmol/L Normal 6-16 [facility] Comment on above: Performed By: #### 2 724661, 5337011, 54165422, 7651572, 7737890, 0498556 #### [facility] [address] [place] [address] Calcium [Mass/Vol] 9.6 mg/dL Normal 8.9-11.1 [facility] Comment on above: Performed By: #### 2 048078, 1963624, 19717228, 3445856, 3557525, 2694491 #### [facility] [address] [place] [address] Chloride [Moles/Vol] 103 mmol/L Normal 101-111 [facility] Comment on above: Performed By: #### 2 080619, 3680702, 15013358, 8562774, 3391144, 6424169 #### [facility] [address] [place] [address] CO2 [Moles/Vol] 23 mmol/L Normal 21-31 [facility] Comment on above: Performed By: #### 2 037722, 1851658, 36501505, 5403267, 6066017, 6189309 #### [facility] [address] [place] [address] Glucose [Mass/Vol] 84 mg/dL Normal 55-199 [facility] Comment on above: Result Comment: If t his glucose result represents a fasting glucose, interpretation should refer to the following reference range: 55-99 mg/dL Performed By: #### 2 892045, 7827256, 89997906, 4979582, 3660912, 3513152 #### [facility] [address] [place] [address] Potassium [Moles/Vol] 3.7 mmol/L Normal 3.5-5.3 [facility] Comment on above: Performed By: #### 2 907798, 8083981, 33699381, 0656769, 0561094, 5844133 #### [facility] [address] [place] [address] Sodium [Moles/Vol] 137 mmol/L Normal 135-145 [facility] Comment on above: Performed By: #### 2 215128, 7856671, 41393712, 0389807, 8532802, 3840311 #### [facility] [address] [place] [address] CBC w/ Auto Diffon 3 Erythrocyte distribution width (RBC) [Ratio] 12.5 % Normal 10.9-14.2 [facility] Comment on above: Performed By: #### 2 944796, 2472746, 90097474, 1485187, 4370480, 5515326 #### [facility] [address] [place] [address] Hematocrit (Bld) [Volume fraction] 37.7 % Normal 34.0-46.0 [facility] Comment on above: Performed By: #### 2 966997, 1884905, 00150894, 8771337, 4968623, 4999114 #### [facility] [address] [place] [address] Hemoglobin (Bld) [Mass/Vol] 13.1 g/dL Normal 12.0-16.0 [facility] Comment on above: Performed By: #### 2 051701, 3916180, 05220280, 1793975, 4961405, 5580636 #### [facility] [address] [place] [address] 23932 MCH (RBC) [Entitic mass] 31.9 pg Normal 27.0-34.0 [facility] Comment on above: Performed By: #### 2 441932, 8977750, 25485257, 0480197, 1333644, 5328398 #### [facility] [address] [place] [address] 90227 MCHC (RBC) [Mass/Vol] 34.8 g/dL Normal 31.4-36.0 [facility] Comment on above: Performed By: #### 2 281114, 0565068, 33506238, 0143584, 2443187, 0114970 #### [facility] [address] [place] [address] 27077 MCV (RBC) [Entitic vol] 91.6 fL Normal 80.0-100.0 [facility] Comment on above: Performed By: #### 2 905978, 9353223, 72528558, 8413744, 6220969, 2023217 #### [facility] [address] [place] [address] 13390 Platelet mean volume (Bld) [Entitic vol] 7.6 fL Normal 6.4-10.8 [facility] Comment on above: Performed By: #### 2 635589, 8206373, 34661605, 6004411, 2893875, 4198819 #### [facility] [address] [place] [address] 32071 Platelets (Bld) [#/Vol] 306.0 E9/L Normal 150.0-500. 0 [facility] Comment on above: Performed By: #### 2 682498, 4426187, 40955273, 5339442, 2743352, 4614930 #### [facility] [address] [place] [address] RBC (Bld) [#/Vol] 4.1 E12/L Low 4.3-5.9 [facility] Comment on above: Performed By: #### 2 228631, 7002640, 62107512, 1002417, 6290545, 5733278 #### [facility] [address] [place] [address] WBC corrected for nucl RBC Auto (Bld) [#/Vol] 9.8 E9/L Normal 4.0-11.0 [facility] Comment on above: Performed By: #### 2 552245, 3272597, 51856714, 2251185, 6288843, 0284427 #### [facility] [address] [place] [address] CHEMISTRYOrdered By: SYSTEM SYSTEM on 03-22-2023 Albumin [...] Consent for Treatmenton Consent for Treatment [id number]:127 Normal [facility] ED Clinical Summaryon 2022 ED Clinical Summary (Inserted Image. Hayley ble to display) [address] [address] ED Clinical Summary Person Information Name: TAWNYA HERRING Deysi/[facility] Age: 27 Years : 1995 Sex: Female Language: Ukrainian PCP: DARWIN JONES CNP Marital Status: Single Phone: [phone] Visit Id: Visit Reason: Dysuria; Nausea; Flank [...] 22:52:44 03/22/2023 22:52:44 03/22/2023 22:52:44 ADDRESS: [address] [place] [phone] PHYS DOC NOTES: MEDICAL INFORMATION: Prescriptions Given: New Medications [facility], [address] [place] [id number], [phone] cephalexin (Keflex 500 mg Cap) 1 Capsules By Mouth every 6 hours for 7 Days. Refills: 0. Medications to Continue with No Changes Other Medications acetaminophen-hydrocodone (Martin 325 mg-5 mg oral tablet) 2 Tablets [...] EDUCATION INFORMATION: Instructions: Urinary Tract Infection, Adult, Mqop-hc-Bthp Follow up: With: Address: When: [facility] [address] [facility] [place] [id number] [phone] Business (1) In 3 days 03/25/2023 Comments: Follow-up with your primary care provider in 3 to 5 days. If symptoms worsen, do not improve, or new symptoms arise please report back to emergency department for further evaluation. DIAGNOSIS: UTI (urinary tract infection) Normal [facility] ED Patient Education Noteon 03-22-2023 ED [...] these instructions at home: Medicines ? Take bhra-txk-yxzbuqn and prescription medicines only as told by [...] provider. Document Revised: 03/14/2021 Document Reviewed: 03/14/2021 [employer] Patient Education ? 2022 [employer] Normal [facility] ED Patient Summaryon 023 ED Patient Summary (Inserted Image. Hayley ble to display) [address] [address] Patient Discharge Instructions Person Information Name: TAWNYA HERRING Age: 27 Years Arrival Date: 03/22/2023 19:52:37 Discharge Diagnosis: UTI (urinary tract infection) Primary Care Physician: DARWIN JONES CNP Provider Information Primary Provider: Gabriel Curtis DO Advanced Associate Professor Of English:None The exam and treatment you received in the Emergency Department were for an urgent problem and are not intended as complete care. It is important that you follow up with a doctor, nurse practitioner, or physician?s pediatric dental assistant for ongoing care. If your symptoms [...] Instructions: With: Address: When: DARWIN JONES [address] [place] [phone] Business (1) In 3 days 03/25/2023 Comments: [...] Patient Education Materials: Urinary Tract Infection, Adult, Kkes-dh-Lzoi A MESSAGE TO ALL PATIENTS REGARDING OPIOIDS PRESCRIPTION OPIOIDS: WHAT YOU NEED TO KNOW Prescription opioids can be used to help relieve wsdbiatw-vt-eqplop pain and are often prescribed following a [...] of op (more content not included)... Normal [facility] HEMATOLOGYOrdered By: SYSTEM SYSTEM on 03-22-2023 Basophils/100 WBC (Bld) 0.5 % Normal 0.0 - 2.0 % [facility] HemeAutoSS Basophils/Leukocytes Auto (Bld) [Pure # fraction] 0.0 E9/L Normal 0.0 - 0.2 E9/L [facility] HemeAutoSS Eosinophils/100 WBC (Bld) 1.5 % Normal 0.0 - 8.0 % FT HemeAutoSS Eosinophils/Leukocyte s Auto (Bld) [Pure # fraction] 0.1 E9/L Normal 0.0 - 0.5 E9/L [facility] HemeAutoSS Lymphocytes/100 WBC (Bld) 34.9 % Normal [...] 03-22-2023 Albumin [Mass/Vol] 4.2 g/dL Normal 3.3-5.0 [facility] Comment on above: Performed By: #### 2 483264, 5702415, 72878045, 4947174, 2850939, 4599647 #### [facility] [address] [place] [address] Albumin/Globulin (S) [Mass conc ratio] 1.4 Normal 1.1-2.2 [facility] Comment on above: Performed By: #### 2 776385, 1359798, 94599420, 3008195, 7981877, 2811452 #### [facility] [address] [place] [address] ALP [Catalytic activity/Vol] 54 Int._Unit/L Normal 21-98 [facility] Comment on above: Performed By: #### 2 631072, 5720062, 54511160, 3555149, 0767652, 6317663 #### [facility] [address] [place] [address]59[address] ALT No additional P-5'-P [Catalytic activity/Vol] 24 Int._Unit/L Normal 6-46 [facility] Comment on above: Performed By: #### 2 015832, 9960754, 10617276, 6325656, 4108403, 2011979 #### [facility] [address] [place] [address] 77666 AST [Catalytic activity/Vol] 18 Int._Unit/L Normal 5-43 [facility] Comment on above: Performed By: #### 2 942595, 3436297, 85772023, 2356421, 5979408, 4174317 #### [facility] [address] [place] [address] Bilirubin [Mass/Vol] 0.7 mg/dL Normal 0.0-1.1 [facility] Comment on above: Performed By: #### 2 584060, 9713570, 93447891, 1393260, 2118621, 6746360 #### [facility] [address] [place] [address] Bilirubin.direct [Mass/Vol] 0.1 mg/dL Normal 0.1-0.4 [facility] Comment on above: Performed By: #### 2 964061, 9721187, 57284192, 6232828, 0713317, 1627533 #### [facility] [address] [place] [address] Bilirubin.indirect [Mass or moles/Vol] 0.6 mg/dL Normal 0.1-0.9 [facility] Comment on above: Performed By: #### 2 069697, 5281070, 69847578, 1243713, 3370620, 8861360 #### [facility] [address] [place] [address] 28[address] Globulin (S) [Mass/Vol] 3.1 g/dL Normal 1.4-4.0 [facility] Comment on above: Performed By: #### 2 688645, 0685390, 18691633, 1858401, 7017896, 0105028 #### [facility] [address] [place] [address] 58472 Protein [Mass/Vol] 7.3 g/dL Normal 6.0-7.8 [facility] Comment on above: Performed By: #### 2 822469, 8230577, 02443582, 6113922, 4817514, 6126990 #### [facility] [address] [place] [address] 15468 Lipase Levelon 03-22-2023 Lipase [Catalytic activity/Vol] 28 U/L Normal 13-58 [facility] Comment on above: Performed By: #### 2 991371, 0024684, 09199324, 0615087, 5579414, 9103595 #### [facility] [address] [place] [address] SEROLOGYOrdered By: Lucina Shaikh on 03-22-2023 HCG.beta subunit (U) [Moles/Vol] Negative Normal [facility] Man Sero U BetaHcg Qualon 03-22-2023 HCG.beta subunit (U) [Moles/Vol] Negative Normal [facility] Comment on above: Performed By: #### 2 935909, 3161894, 59976290, 3820363, 5479581, 6112922 #### [facility] [address] [place] [address] UA With Cult Reflexon 2022 Bacteria LM Ql (Urine sed) TRACE Normal Trace [facility] Comment on above: Performed By: #### 2 366370, 4905475, 01835168, 7314842, 7844823, 9608207 #### [facility] [address] [place] [address] Bilirubin Ql (U) Negative Normal Negative [facility] Comment on above: Performed By: #### 2 593566, 8351609, 07983827, 4259503, 8769252, 8145563 #### [facility] [address] [place] [address] Clarity (U) SL CLOUDY Abnormal Clear [facility] Comment on above: Performed By: #### 2 949892, 1562863, 18462618, 3886071, 9656891, 3173101 #### [facility] [address] [place] [address] Color (U) YELLOW Normal Yellow [facility] Comment on above: Performed By: #### 2 537041, 7550282, 58522259, 2930658, 3407053, 6090797 #### [facility] [address] [place] [address] Crystals LM Ql (Urine sed) Present Normal [facility] Comment on above: Performed By: #### 2 970198, 4526558, 05898486, 5705079, 0966895, 5597658 #### [facility] [address] [place] [address] Epithelial cells.squamous LM.HPF (Urine sed) [#/Area] 0-2 Normal 0-2 [facility] Comment on above: Performed By: #### 2 106008, 5339673, 31518565, 6408815, 9772730, 1224518 #### [facility] [address] [place] [address] Glucose Test strip (U) [Mass/Vol] Negative Normal Negative [facility] Comment on above: Performed By: #### 2 160357, 8082676, 86217178, 4863278, 9817510, 4749220 #### [facility] [address] [place] [address] Hemoglobin Ql (U) 2+ Abnormal Negative [facility] Comment on above: Performed By: #### 2 487790, 7479373, 34396365, 1019418, 2688825, 0469616 #### [facility] [address] [place] [address] Ketones (U) [Mass/Vol] 1+ Abnormal Negative [facility] Comment on above: Performed By: #### 2 478044, 5342549, 02885538, 8438568, 4208468, 6954490 #### [facility] [address] [place] [address] [place].plasma/Lithiu m.RBC (Bld) [Mass ratio] 0-3 Normal 0-3 [facility] Comment on above: Performed By: #### 2 514582, 0915425, 58458026, 0797798, 2430753, 9339929 #### [facility] [address] [place] [address] Mucus Ql (Urine sed) TRACE Normal [facility] Comment on above: Performed By: #### 2 041232, 4404619, 17911796, 3349730, 4766442, 2439661 #### [facility] [address] [place] [address] Nitrite Ql (U) Negative Normal Negative [facility] Comment on above: Performed By: #### 2 387759, 7805958, 85454880, 6916670, 5095384, 6336937 #### [facility] [address] [place] [address] pH (U) 5.5 [pH] Invalid Interpretation Code 5.0-9.0 [facility] Comment on above: Performed By: #### 2 894810, 2483902, 23664317, 5324830, 3325615, 8634549 #### [facility] [address] [place] [address] Protein (U) [Mass/Vol] Negative Normal Negative [facility] Comment on above: Performed By: #### 2 285727, 1655349, 35602016, 7897973, 5964695, 1511113 #### [facility] [address] [place] [address] Specific gravity (U) [Rel density] >=1.030 Invalid Interpretation Code 1.005-1.03 0 [facility] Comment on above: Performed By: #### 2 172651, 9578195, 60358411, 3773234, 1196166, 5304019 #### [facility] [address] [place] [address] Type of Urine collection method Clean Catch Normal [facility] Comment on above: Performed By: #### 2 683886, 5571207, 08562436, 7403360, 4055594, 6690985 #### [facility] [address] [place] [address] Urobilinogen Qn (U) 0.2 {Aly'U}/dL Normal 0.0-1.0 [facility] Comment on above: Performed By: #### 2 132641, 6969010, 46925076, 2473322, 1838461, 1857213 #### [facility] [address] [place] [address] WBC Auto Ql (U) 2+ Abnormal Negative [facility] Comment on above: Performed By: #### 2 390173, 4488342, 24629173, 7319566, 7372490, 5570879 #### [facility] [address] [place] [address] WBC LM.HPF (Urine sed) [#/Area] 16-25 Abnormal 0-5 [facility] Comment on above: Performed By: #### 2 322251, 1565960, 73226478, 2889859, 1137660, 9511724 #### [facility] [address] [place] [address] URINALYSISOrdered By: Elizabeth Shaikh on 03-22-2023 Bacteria [...] Interpretation Code Negative [facility] UA Auto SS [place].plasma/Lithiu m.RBC (Bld) [Mass ratio] 0-3 /HPF Normal [...] PM) Invalid Interpretation Code 1.005 - 1.030 [facility] UA Auto SS UA Spec Desc Clean Catch (03/22/23 8:17 PM) Normal [facility] UA Auto SS Urobilinogen Qn (U) 0.7442791 {Aly'U}/dL Normal 0.0 - 1.0 EU/dL [facility] UA Auto SS WBC Auto Ql (U) 2+ *ABN* (03/22/23 8:17 PM) Invalid Interpretation Code Negative [facility] UA Auto SS WBC LM.HPF (Urine sed) [#/Area] 16-25 /HPF Invalid Interpretation Code 0-5/HPF [facility] UA Auto SS eGFRon 03-22-2023 GFR/1.73 sq M.predicted among non-blacks MDRD (S/P/Bld) [Vol rate/Area] 133 mL/min/1.73 m2 Normal >=59 [facility] Comment on above: Order Comment: Order added by Discern Expert. Result Comment: Automation Qa Lead vinh kidney disease could be indicated at eGFR's of less than 60 mL/min/1.73m2. Kidney failure is indicated at less than 15 mL/min/1.73m2. Performed By: #### 2 723109, 1421845, 20107010, 9555366, 3466476, 2007218 #### [facility] [address] [place] [address] Alanine aminotransferase [En zymatic activity/volume] in Serum or PlasmaOrdered By: Zurdo Ortega on 02-28-2023 ALT [Catalytic activity/Vol] 21 U/L 7- [facility] HIV 1 and HIV-2 antibody ass ay with HIV-1 p24 antigen detectionOrdered By: Zurdo Ortega on 02-28-2023 HIV 1+2 Ab+HIV1 p24 Ag IA Ql Non-Reactive Non Reactive [facility] Comment on above: HIV NegativeHIV-1/HI V-2 antibodies and HIV-1 p24 antigen were NOTdetected. There is no laboratory evidence of HIV infection. Hepatitis B virus surface Ag [Presence] in Serum or Plasma by ImmunoassayOrdered By: Zurdo Ortega on 02-28-2023 HBV surface Ag IA Ql Negative Negative [facility] Comment on above: Performed at: [id number] [place], [place] [id number] Director: Alexis Ashton PhD, Phone: [phone] Hepatitis C virus IgG Ab [Pr esence] in Serum or Plasma by ImmunoassayOrdered By: Zurdo Ortega on 02-28-2023 HCV IgG IA Ql Non-Reactive Non Reactive [facility] No Panel InformationOrdered By: Zurdo Ortega on 02-28-2023 Hepatitis C Interpretation See comment . [facility] Comment on above: Not infected with HC V unless early or acute infection issuspected (which may be delayed in an immunocompromisedindividual), or other evidence exists to indicate HCVinfection. Serum hepatitis B virus surf nikolas antibody detectionOrdered By: Zurdo Ortega on 02-28-2023 HBV surface Ab Ql (S) Reactive . [facility] Comment on above: Non Reactive: Incons istent with immunity, less than 10 mIU/mL Reactive: Consistent with immunity, greater than 9.9 mIU/mL PAP ACOG PANEL 2: 21 to 29on 12-17-2022 . . Normal [facility] Comment on above: Performed By: #### 4 775662 #### [facility] [address] [address] [address] Regine Fortune Age Gdln ACOG Testing - [facility] Comment on above: Performed By: #### 4 545424 #### [facility] [address] [address] [address] Regine Fortune DIAGNOSIS: Comment Normal [facility] Comment on above: Result Comment: NEGA TIVE FOR INTRAEPITHELIAL LESION OR MALIGNANCY. Performed By: #### 4 705127 #### [facility] [address] [address] [address] Regine Fortune Methodology: Comment [facility] Comment on above: Result Comment: This liquid based ThinPrep(R) pap test was screened with the use of an image guided system. Performed By: #### 4 036919 #### [facility] [address] [address] [address] Regine Fortune Note: Comment [facility] [...] do occur. . Performed By: #### [id number] #### [facility] [address] [place] [address] Dr. Regine Fortune Performed by: Comment Normal [facility] Comment on above: Result Comment: Amna Hernandes [employer] Systems Test Engineer (ASCP) Performed By: #### [id number] #### [facility] [address] [place] [address] Dr. Regine Fortune Reflex Criteria: Comment [facility] Comment on above: Result Comment: The HPV DNA reflex criteria were not met with this specimen result therefore, no HPV testing was performed. . Performed By: #### [id number] #### [facility] [address] [place] [address] Dr. Regine Fortune Specimen adequacy: Comment Normal [facility] Comment on above: Result Comment: Sati sfactory for evaluation. Endocervical and/or squamous metaplastic cells (endocervical component) are present. Areas of partially obscuring inflammatory exudate are present. Performed By: #### [id number] #### [facility] [address] [place] [address] Dr. Regine Fortune Thyrotropin [Units/volume] i n Serum or PlasmaOrdered By: Brain Way on 12-10-2022 TSH Qn 2.86 m[IU]/L 0.45-5.33 [facility] Thyroxine (T4) free [Mass/vo lume] in Serum or PlasmaOrdered By: Brain Way on 12-10-2022 Free T4 [Mass/Vol] 0.94 ng/dL 0.61-1.12 [facility] Albumin [Mass/volume] in Ser um or PlasmaOrdered By: Ofelia Hester on 10-16-2022 Albumin [Mass/Vol] 4.1 g/dL 3.2-5.5 [facility] Alkaline phosphatase [Enzyma tic activity/volume] in Serum or PlasmaOrdered By: Ofelia Hester on 10-16-2022 ALP [Catalytic activity/Vol] 56 U/L 32-92 [facility] Amylaseon 10-16-2022 Amylase 43 U/L Normal 28-100 U/L [facility] Other Amylase [Enzymatic activity/ volume] in Serum or PlasmaOrdered By: Ofelia Hester on 10-16-2022 Amylase [Catalytic activity/Vol] 43 U/L 28-100 [facility] Aspartate aminotransferase [ Enzymatic activity/volume] in Serum or PlasmaOrdered By: Ofelia Hester on 10-16-2022 AST [Catalytic activity/Vol] 16 U/L 10-42 [facility] Bilirubin.total [Mass/volume ] in Serum or PlasmaOrdered By: Ofelia Hester on 10-16-2022 Bilirubin [Mass/Vol] 0.6 mg/dL 0.3-1.2 [facility] Calcium [Mass/volume] in Ser um or PlasmaOrdered By: Ofelia Hester on 10-16-2022 Calcium [Mass/Vol] 9.3 mg/dL 8.2-10.2 [facility] Carbon dioxide, total [Moles /volume] in Serum or PlasmaOrdered By: Ofelia Hester on 10-16-2022 CO2 [Moles/Vol] 22.1 mmol/L 22.0-30.[address] [facility] Chloride [Moles/volume] in S ghada or PlasmaOrdered By: Ofelia Hester on 10-16-2022 Chloride [Moles/Vol] 105 mmol/L 95-114 [facility] Comprehensive Metabolic Pane saym 10-16-2022 Albumin [Mass/Vol] 4.455875 g/dL Normal 3.2-5.5 g/dL [facility] Other ALT [Catalytic activity/Vol] 17 U/L Normal 10-60 U/L [facility] Other Bilirubin [Mass/Vol] 0.6028839 mg/dL Normal 0.3- 1.2 mg/dL [facility] Other Calcium [Mass/Vol] 9.3024536 mg/dL Normal 8.2-10 .2 mg/dL [facility] Other CO2 [Moles/Vol] 22.96273752 mmol/L Normal 22.0-3 0.0 mmol/L [facility] Other Creatinine [Mass/Vol] 0.14527410 mg/dL Normal 0. 44-1.03 mg/dL [facility] Other Potassium [Moles/Vol] 4.25552675 mmol/L Normal 3 .5-5.1 mmol/L [facility] Other Protein [Mass/Vol] 6.360288 g/dL Normal 6.1-7.9 g/dL [facility] Other Comprehensive Metabolic Panel > 60 [facility] Other Comprehensive Metabolic Panel 2.5 g/dL [facility] Other Creatinine and Glomerular fi ltration rate.predicted panel (S/P/Bld)Ordered By: Ofelia Hester on 10-16-2022 Creatinine [Mass/Vol] 0.55 mg/dL 0.44-1.03 [facility] Estimated glomerular filtrat ion rate (GFR) non- AmericanOrdered By: Ofelia Hester on 10-16-2022 GFR/1.73 sq M.predicted among non-blacks MDRD (S/P/Bld) [Vol rate/Area] > 60 mL/Min [facility] Globulin Calc (S) [Mass/Vol] Ordered By: Ofelia Hester on 10-16-2022 Globulin (S) [Mass/Vol] 2.5 g/dL [facility] Glucose [Mass/volume] in Ser um or PlasmaOrdered By: Ofelia Hester on 10-16-2022 Glucose [Mass/Vol] 86 mg/dL 70-100 [facility] Comment on above: ADA recommended refe rence rangeRandom Glucose Reference Range is dependent on time and content of last meal. Glucose of more than 200 mg/dL in a nonstressed, ambulatory subject supports the diagnosis of Diabetes Mellitus. Laboratory - Chemistry and C hemistry - challengeOrdered By: Ofelia Hester on 10-16-2022 Lipase [Catalytic activity/Vol] 35.0 U/L 22-51 [facility] Lipaseon 10-16-2022 Lipase [Catalytic activity/Vol] 35.92980 U/L Normal 22-51 U/L [facility] Other No Panel InformationOrdered By: Ofelia Hester on 10-16-2022 Estimated GFR () > 60 mL/Min [facility] Comment on above: GFR estimated refere nce range: According to KDOQI guidelines, <60 ml/min/1.73m2 is sufficient to diagnose a patient with chronic kidney disease. Pharmacy Creatinine Clearance (Chem N/A [facility] Potassium [Moles/volume] in Serum or PlasmaOrdered By: Ofelia Hester on 10-16-2022 Potassium [Moles/Vol] 4.3 mmol/L 3.5-5.1 [facility] Protein [Mass/volume] in Ser um or PlasmaOrdered By: Ofelia Hester on 10-16-2022 Protein [Mass/Vol] 6.6 g/dL 6.1-7.9 [facility] Serum or plasma alanine galaviz otransferase measurement without P-5'-P (enzymatic activiOrdered By: Ofelia Hester on 10-16-2022 ALT No additional P-5'-P [Catalytic activity/Vol] 17 U/L 10-60 [facility] Serum or plasma albumin/glob ulin mass ratioOrdered By: Ofelia Hester on 10-16-2022 Albumin/Globulin [Mass ratio] 1.6 {ratio} [facility] Serum or plasma anion gap de terminationOrdered By: Ofelia Hester on 10-16-2022 Anion gap [Moles/Vol] 13.2 mmol/L 6.0-15.0 [facility] Sodium [Moles/volume] in Ser um or PlasmaOrdered By: Ofelia Hester on 10-16-2022 Sodium [Moles/Vol] 136 mmol/L 136-146 [facility] Urea nitrogen [Mass/volume] in Serum or PlasmaOrdered By: Ofelia Hester on 10-16-2022 Urea nitrogen [Mass/Vol] 11 mg/dL 05-08 [facility] T4 FREE/FREE THYROXon 2021 Free T4 [Mass/Vol] 1.3 ng/dL 0.9 - 1.7 ng/dL [facility] TSH BLDon 07-14-2022 TSH Qn 2.480 m[IU]/L 0.270 - 4.200 mIU/L [facility] VITAMIN B12 BLOODon 07-14-20 Cobalamin (Vitamin B12) [Mass/Vol] 267 pg/mL 232 - 1,245 pg/mL [facility] Quick Fluon 06-04-2022 FLUAV Ab CF (S) [Titer] Negative [facility] Other FLUBV Ab CF (S) [Titer] Negative [facility] Other Quick Strepon 06-04-2022 S. pyogenes Org specific cx Ql (Throat) Negative [facility] Other Quick Strep [facility] Other SARS-CoV-2 (COVID-19) RNA NA A+probe Ql (Resp)on 06-04-2022 SARS-CoV-2 (COVID-19) RNA LAUREN+probe Ql (Unsp spec) Negative [facility] Other TSH DL <= 0.005 mIU/L QnOrde red By: Darwin Jones on 04-14-2022 TSH Qn 6.39 m[IU]/L 0.45-5.33 [facility] Thyroxine (T4) free [Mass/vo lume] in Serum or PlasmaOrdered By: Darwin Jones on 04-14-2022 Free T4 [Mass/Vol] 0.82 ng/dL 0.61-1.12 [facility] Triiodothyronine (T3) Free [ Mass/volume] in Serum or PlasmaOrdered By: Darwin Jones on 04-14-2022 Free T3 [Mass/Vol] 4.08 pg/mL 2.50-3.90 [facility] Serum or plasma calcium luis urement (mass/volume)Ordered By: Saad Valera on 04-06-2022 Calcium [Mass/Vol] 9.4 mg/dL 8.2-10.2 [facility] Serum or plasma intact parat hyroid hormone measurement (mass/volume)Ordered By: Saad Valera on 04-06-2022 Parathyrin.intact [Mass/Vol] 54.8 pg/mL 12-88 [facility] CHEMISTRYOrdered By: Lab [facility]OP User on 02-18-2022 Glucose [Mass/Vol] 106 mg/dL High 55 - 99 mg/dL [facility] Subsection Comment on above: Result Comment: Aurelia breana Meter POC Device SN [id number] Invalid Interpretation Code [facility] [facility] Subsection POC User ID [id number] Invalid Interpretation Code [facility] Subsection POC Username OBINNA EPPERSON Invalid Interpretation Code [facility] Subsection Serum or plasma thyroglobuli n antibody assay (units/volume)Ordered By: Darwin Jones on 02-13-2022 Thyroglobulin Ab Qn 971.2 [IU]/mL 0.0-0.9 [facility] Comment on above: Thyroglobulin Antibo dy measured by [facility] Methodology Performed at: [facility] [place] [id number] [place]: Alexis Ashton PhD, Phone: [phone] Serum or plasma thyroperoxid ase antibody assay (units/volume)Ordered By: Darwin Jones on 02-13-2022 TPO Ab Qn 327 [IU]/mL 0-34 [facility] Thyroxine (T4) free [Mass/vo lume] in Serum or PlasmaOrdered By: Darwin Jones on 02-13-2022 Free T4 [Mass/Vol] 0.66 ng/dL 0.61-1.12 [facility] Triiodothyronine (T3) Free [ Mass/volume] in Serum or PlasmaOrdered By: Darwin Jones on 02-13-2022 Free T3 [Mass/Vol] 4.04 pg/mL 2.50-3.90 [facility] Albumin [Mass/volume] in Ser um or PlasmaOrdered By: Addi Ortega on 02-10-2022 Albumin [Mass/Vol] 4.1 g/dL 3.2-5.5 [facility] Basophils Auto (Bld) [#/Vol] Ordered By: Addi Ortega on 02-10-2022 Basophils (Bld) [#/Vol] 0.0 10*3/uL 0.0-0.2 [facility] Basophils/100 WBC Auto (Bld) Ordered By: Addi Ortega on 02-10-2022 Basophils/100 WBC (Bld) 0.4 % . [facility] Blood hemoglobin measurement (mass/volume)Ordered By: Addi Ortega on 02-10-2022 Hemoglobin (Bld) [Mass/Vol] 14.1 g/dL 11.8-15.4 [facility] Blood leukocytes automated c ount (number/volume)Ordered By: Addi Ortega on 02-10-2022 WBC (Bld) [#/Vol] 7.3 10*3/uL 4.5-11.0 [facility] Cholesterol [Mass/volume] in Serum or PlasmaOrdered By: Addi Ortega on 02-10-2022 Cholesterol [Mass/Vol] 195 mg/dL 140-200 [facility] Comment on above: Chol less than 200 m g/dl low risk Chol 201-239 mg/dl borderline risk Chol 240 mg/dl and greater high risk Cholesterol in LDL Calc [Mas s/Vol]Ordered By: Addi Ortega on 02-10-2022 Cholesterol in LDL [Mass/Vol] 113 mg/dL 0-100 [facility] Comment on above: LDL ATP III CLASSIFI CATION LDL less than 100 mg/dL Optimal LDL 100-129 mg/dL Near or above optimal LDL 130-159 mg/dL Borderline high LDL 160-189 mg/dL High LDL greater than 189 mg/dL Very high Cholesterol in VLDL Calc [Ma ss/Vol]Ordered By: Addi Ortega on 02-10-2022 Cholesterol in VLDL [Mass/Vol] 26 mg/dL [facility] Creatinine and Glomerular fi ltration rate.predicted panel (S/P/Bld)Ordered By: Addi Ortega on 02-10-2022 Creatinine [Mass/Vol] 0.71 mg/dL 0.44-1.03 [facility] Eosinophils Auto (Bld) [#/Vo l]Ordered By: Addi Ortega on 02-10-2022 Eosinophils (Bld) [#/Vol] 0.1 10*3/uL 0.0-0.45 [facility] Eosinophils/100 WBC Auto (Bl d)Ordered By: Addi rOtega on 02-10-2022 Eosinophils/100 WBC (Bld) 1.5 % . [facility] Erythrocyte distribution wid th Auto (RBC) [Ratio]Ordered By: Addi Ortega on 02-10-2022 Erythrocyte distribution width (RBC) [Ratio] 14.0 % 11.9-15.3 [facility] Estimated glomerular filtrat ion rate (GFR) non- AmericanOrdered By: Addi Ortega on 02-10-2022 GFR/1.73 sq M.predicted among non-blacks MDRD (S/P/Bld) [Vol rate/Area] > 60 mL/Min [facility] Globulin Calc (S) [Mass/Vol] Ordered By: Addi Ortega on 02-10-2022 Globulin (S) [Mass/Vol] 2.8 g/dL [facility] Hematocrit Auto (Bld) [Volum e fraction]Ordered By: Addi Ortega on 02-10-2022 Hematocrit (Bld) [Volume fraction] 40.3 % 34.0-46.4 [facility] - Chemistry and C hemistry - challengeOrdered By: Addi Ortega on 02-10-2022 Glucose [Mass/Vol] 90 mg/dL 70-100 [facility] - Hematology and Cell countsOrdered By: Addi Ortega on 02-10-2022 Nucleated RBC/100 WBC (Bld) [Ratio] 0.1 % 0-0.5 [facility] Lymphocytes Auto (Bld) [#/Vo l]Ordered By: Addi Ortega on 02-10-2022 Lymphocytes (Bld) [#/Vol] 3.3 10*3/uL 1.00-4.8 [facility] Lymphocytes/100 WBC Auto (Bl d)Ordered By: Addi Ortega on 02-10-2022 Lymphocytes/100 WBC (Bld) 45.2 % . [facility] MCH Auto (RBC) [Entitic mass ]Ordered By: Addi Ortega on 02-10-2022 MCH (RBC) [Entitic mass] 33.0 pg 24.7-34.3 [facility] MCHC Auto (RBC) [Mass/Vol]Or dered By: Addi Ortega on 02-10-2022 MCHC (RBC) [Mass/Vol] 34.9 g/dL 32.0-35.0 [facility] MCV Auto (RBC) [Entitic vol] Ordered By: Addi Ortega on 02-10-2022 MCV (RBC) [Entitic vol] 94.6 fL 80-100 [facility] Monocyte %Ordered By: Addi Ortega on 02-10-2022 Monocyte % 134 mg/dL 35-149 [facility] Comment on above: TRIG ATP III CLASSIF ICATION TRIG less than 150 mg/dL Normal TRIG 150-199 mg/dL Borderline high TRIG 200-500 mg/dL High TRIG greater than 500 mg/dL Very high Standard traceable to the Center for Disease Conrtrol and Prevention (CDC) test method. Monocytes Auto (Bld) [#/Vol] Ordered By: Addi Ortega on 02-10-2022 Monocytes (Bld) [#/Vol] 0.5 10*3/uL 0.0-0.8 [facility] Monocytes/100 WBC Auto (Bld) Ordered By: Addi Ortega on 02-10-2022 Monocytes/100 WBC (Bld) 6.3 % . [facility] Neutrophils Auto (Bld) [#/Vo l]Ordered By: Addi Ortega on 02-10-2022 Neutrophils (Bld) [#/Vol] 3.4 10*3/uL 1.8-7.7 [facility] Neutrophils/100 WBC Auto (Bl d)Ordered By: Addi Ortega on 02-10-2022 Neutrophils/100 WBC (Bld) 46.6 % . [facility] No Panel InformationOrdered By: Addi Ortega on 02-10-2022 Estimated GFR () > 60 mL/Min [facility] Comment on above: GFR estimated refere nce range: According to KDOQI guidelines, <60 ml/min/1.73m2 is sufficient to diagnose a patient with chronic kidney disease. Nicotine Metabolite Negative Cutoff=25 [facility] Comment on above: Performed at: - [address] [id number] [place]: Catherine Mendoza MD, Phone: [phone] Pharmacy Creatinine Clearance (Chem N/A [facility] Platelet mean volume Auto (B ld) [Entitic vol]Ordered By: Addi Ortega on 02-10-2022 Platelet mean volume (Bld) [Entitic vol] 8.4 fL 6.3-10.7 [facility] Platelets Auto (Bld) [#/Vol] Ordered By: Addi Ortega on 02-10-2022 Platelets (Bld) [#/Vol] 321 10*3/uL 150-450 [facility] Protein [Mass/volume] in Ser um or PlasmaOrdered By: Addi Ortega on 02-10-2022 Protein [Mass/Vol] 6.9 g/dL 6.1-7.9 [facility] RBC Auto (Bld) [#/Vol]Ordere d By: Addi Ortega on 02-10-2022 RBC (Bld) [#/Vol] 4.26 10*6/uL 3.60-5.00 [facility] Serum or plasma alanine galaviz otransferase measurement without P-5'-P (enzymatic activiOrdered By: Addi Ortega on 02-10-2022 ALT No additional P-5'-P [Catalytic activity/Vol] 26 U/L 10-60 [facility] Serum or plasma albumin/glob ulin mass ratioOrdered By: Addi Ortega on 02-10-2022 Albumin/Globulin [Mass ratio] 1.5 {ratio} [facility] Serum or plasma alkaline hosea sphatase measurement (enzymatic activity/volume)Ordered By: Addi Ortgea on 02-10-2022 ALP [Catalytic activity/Vol] 47 U/L 32-92 [facility] Serum or plasma aspartate am inotransferase measurement (enzymatic activity/volume)Ordered By: Addi Ortega on 02-10-2022 AST [Catalytic activity/Vol] 18 U/L 10-42 [facility] Serum or plasma calcium luis urement (mass/volume)Ordered By: Addi Ortega on 02-10-2022 Calcium [Mass/Vol] 9.3 mg/dL 8.2-10.2 [facility] Serum or plasma chloride radha surement (moles/volume)Ordered By: Addi Ortega on 02-10-2022 Chloride [Moles/Vol] 99 mmol/L 95-114 [facility] Serum or plasma high density lipoprotein (HDL) cholesterol measurementOrdered By: Addi Ortega on 02-10-2022 Cholesterol in HDL [Mass/Vol] 55 mg/dL 35-85 [facility] Comment on above: HDL CHOL ATP-III CLA SSIFICATION Cardiovascular Risk HDL > or equal to 60 mg/dL LOW HDL < 40 mg/dL HIGH Serum or plasma potassium me asurement (moles/volume)Ordered By: Addi Ortega on 02-10-2022 Potassium [Moles/Vol] 4.1 mmol/L 3.5-5.1 [facility] Serum or plasma sodium measu rement (moles/volume)Ordered By: Addi Ortega on 02-10-2022 Sodium [Moles/Vol] 135 mmol/L 136-146 [facility] Serum or plasma total biliru bin measurement (mass/volume)Ordered By: Addi Ortega on 02-10-2022 Bilirubin [Mass/Vol] 0.7 mg/dL 0.3-1.2 [facility] Serum or plasma total carbon dioxide measurement (moles/volume)Ordered By: Addi Ortega on 02-10-2022 CO2 [Moles/Vol] 23.3 mmol/L 22.0-30.[address] [facility] Serum or plasma total choles terol/high density lipoprotein (HDL) cholesterol mass ratOrdered By: Addi Ortega on 02-10-2022 Cholesterol.total/Cho lesterol in HDL [Mass ratio] 3.5 {ratio} <5.0 [facility] Serum or plasma urea nitroge n measurement (mass/volume)Ordered By: Addi Ortega on 02-10-2022 Urea nitrogen [Mass/Vol] 17 mg/dL 9-23 [facility] TSH DL <= 0.005 mIU/L QnOrde red By: Addi Ortega on 02-10-2022 TSH Qn 57.67 m[IU]/L 0.45-5.33 [facility] No Panel Informationon 09-03 6 {mm/hr} Normal 0-34 [facility] [facility] [...] All medical record entries made by the Mauricioibtaj were at my direction and personally dictated [...] Vital Signs Recorded: 03Sep2021 10:02AMRecorded: 03Sep2021 09:55AM [id number], LUE, [id number], RUE, Sitting [id number], LUE, [id number], RUE, Sitting Heart Rate72, Apical Height5 ft 7 in [id number] lb 9.6 oz BMI Dntdkqxacf49.36 kg/m2 BSA Calculated2.05 Tobacco Useb) No EKG [...] . Sign (more content not included)... Normal [employer] Tobacco Screening.on 022 Tobacco use status CPHS b) No -[facility] 600 DO Work Phone: Vital Signs Date Time Vital Sign Value Performing Clinician Facility 04-25-2025 10:11-0400 Body height 168.91 cm [place] Janeshubuta [employer]ING B[employer] PATCHER Work Phone: [facility] 04-25-2025 10:11-0400 Body mass index (BMI) [Ratio] 40.6 kg/m2 [place] Janeshubuta [employer]ING B[employer] P[employer]ER Work Phone: [facility] 04-25-2025 10:11-0400 Body weight 115.8 kg Darwin Yasir PLUMMERN Work Phone: [facility] 04-25-2025 10:11-0400 Diastolic blood pressure 79 mm[Hg] [place] Janeshubuta [employer] B[employer] P[employer]ER Work Phone: [facility] 04-25-2025 10:11-0400 Heart rate 82 /min [facility] [employer] P[employer] Work Phone: [facility] 04-25-2025 10:11-0400 Respiratory rate 18 /min [place] Janeshubuta [employer]ING BALL P[employer]ER Work Phone: [facility] 04-25-2025 10:11-0400 SaO2% (BldA) [Mass fraction] 98 % [place] [facility] [employer] Work Phone: [facility] 04-25-2025 10:11-0400 Systolic blood pressure 116 mm[Hg] Darwin Easterwood [employer]ING B[employer] P[employer]ER Work Phone: [facility] 03-05-2025 08:28-0400 Body height 168.2 cm Darwin Easterwood [employer]ING B[employer] P[employer]ER Work Phone: [facility] 03-05-2025 08:28-0400 Body mass index (BMI) [Ratio] 42.3 kg/m2 Darwin Easterwood [employer]ING BALL P[employer]ER Work Phone: [facility] 03-05-2025 08:28-0400 Body weight 119.7 kg Darwin Easterwood [employer]ING B[employer] P[employer]ER Work Phone: [facility] 03-05-2025 08:28-0400 Diastolic blood pressure 85 mm[Hg] Darwin Easterwood [employer]ING B[employer] P[employer]ER Work Phone: [facility] 03-05-2025 08:28-0400 Heart rate 85 /min Darwin Easterwood [employer]ING B[employer] P[employer]ER Work Phone: [facility] 03-05-2025 08:28-0400 Respiratory rate 16 /min Darwin Easterwood [employer]ING B[employer] P[employer]ER Work Phone: [facility] 03-05-2025 08:28-0400 SaO2% (BldA) [Mass fraction] 99 % Darwin Easterwood [employer]ING B[employer] P[employer]ER Work Phone: [facility] 03-05-2025 08:28-0400 Systolic blood pressure 123 mm[Hg] Darwin Easterwood [employer]ING B[employer] P[employer]ER Work Phone: [facility] 01-22-2025 07:32-0400 Body height 168.2 cm Darwin Easterwood [employer]ING B[employer] P[employer]ER Work Phone: [facility] 01-22-2025 07:32-0400 Body mass index (BMI) [Ratio] 41.2 kg/m2 Darwin Easterwood [employer]ING B[employer] P[employer]ER Work Phone: [facility] 01-22-2025 07:32-0400 Body weight 116.7 kg Darwin Easterwood [employer]ING B[employer] P[employer]ER Work Phone: [facility] 01-22-2025 07:32-0400 Diastolic blood pressure 79 mm[Hg] Darwin Easterwood [employer]ING B[employer] P[employer]ER Work Phone: [facility] 01-22-2025 07:32-0400 Heart rate 90 /min Darwin Easterwood [employer] P[employer]ER Work Phone: [facility] 01-22-2025 07:32-0400 Respiratory rate 18 /min Darwin Easterwood [employer]ING B[employer] P[employer]ER Work Phone: [facility] 01-22-2025 07:32-0400 SaO2% (BldA) [Mass fraction] 98 % Darwin Easterwood [employer]ING B[employer] P[employer]ER Work Phone: [facility] 01-22-2025 07:32-0400 Systolic blood pressure 116 mm[Hg] Darwin Easterwood [employer]ING B[employer] P[employer]ER Work Phone: [facility] 12-13-2024 09:34-0400 Body mass index (BMI) [Ratio] 38.06 kg/m2 Leah Adolfo [employer]INTER APPRENTICE Work Phone: [facility] 12-13-2024 09:34-0400 Body weight 110.22 kg Leah Adolfo COUNTRY PRINTER APPRENTICE Work Phone: [facility] 12-13-2024 09:34-0400 Diastolic blood pressure 76 mm[Hg] Leah Adolfo COUNTRY PRINTER APPRENTICE Work Phone: [facility] 12-13-2024 09:34-0400 Systolic blood pressure 110 mm[Hg] Leah Adolfo COUNTRY PRINTER APPRENTICE Work Phone: [facility] 11-15-2024 10:17-0400 Body mass index (BMI) [Ratio] 35.55 kg/m2 Mya Finch PA Work Phone: [facility] 11-15-2024 10:17-0400 Body weight 102.97 kg Mya Stef PA Work Phone: [facility] 11-15-2024 10:17-0400 Diastolic blood pressure 70 mm[Hg] Mya Drummonds PA Work Phone: [facility] 11-15-2024 10:17-0400 Systolic blood pressure 110 mm[Hg] Mya Drummonds PA Work Phone: [facility] 10-26-2024 11:05-0400 Body mass index (BMI) [Ratio] 41.88 kg/m2 Mya Drummonds PA Work Phone: [facility] 10-26-2024 11:05-0400 Body weight 121.29 kg Mya Drummonds PA Work Phone: [facility] 10-26-2024 11:05-0400 Diastolic blood pressure 80 mm[Hg] Mya Tsef PA Work Phone: [facility] 10-26-2024 11:05-0400 Systolic blood pressure 114 mm[Hg] Mya Stef PA Work Phone: [facility] 10-18-2024 10:21-0500 Body mass index (BMI) [Ratio] 41.35 kg/m2 Mya Drummonds PA Work Phone: [facility] 10-18-2024 10:21-0500 Body weight 119.75 kg Mya Stef PA Work Phone: [facility] 10-18-2024 10:21-0500 Diastolic blood pressure 80 mm[Hg] Mya Stef PA Work Phone: [facility] 10-18-2024 10:21-0500 Systolic blood pressure 120 mm[Hg] Mya Drummonds PA Work Phone: [facility] 10-14-2024 09:03-0500 Blood Pressure Location Lesley Blanco [facility] 10-14-2024 09:03-0500 Body temperature 98.24 [degF] Lesley Blanco [facility] 10-14-2024 09:03-0500 Diastolic blood pressure 72 mm[Hg] Lesley Blanco [facility] 10-14-2024 09:03-0500 Heart rate 118 /min Lesley Blanco [facility] 10-14-2024 09:03-0500 SaO2% (BldA) [Mass fraction] 99 % Lesley Blanco [facility] 10-14-2024 09:03-0500 Systolic blood pressure 114 mm[Hg] Lesley Blanco [facility] 10-10-2024 11:02-0500 Body mass index (BMI) [Ratio] 40.79 kg/m2 Brain Seamus DO Work Phone: [facility] 10-10-2024 11:02-0500 Body weight 118.12 kg Brain Seamus DO Work Phone: [facility] 10-10-2024 11:02-0500 Diastolic blood pressure 78 mm[Hg] Brain Seamus DO Work Phone: [facility] 10-10-2024 11:02-0500 Systolic blood pressure 114 mm[Hg] Brain Seamus DO Work Phone: [facility] 10-05-2024 14:20-0500 Body mass index (BMI) [Ratio] 40.72 kg/m2 Mya MCMILLAN Work Phone: [facility] 10-05-2024 14:20-0500 Body weight 117.94 kg Mya MCMILLAN Work Phone: [facility] 10-05-2024 14:20-0500 Diastolic blood pressure 70 mm[Hg] Mya MCMILLAN Work Phone: [facility] 10-05-2024 14:20-0500 Systolic blood pressure 120 mm[Hg] Mya MCMILLAN Work Phone: [facility] 09-19-2024 14:33-0500 Body mass index (BMI) [Ratio] 39.49 kg/m2 Brain Seamus DO Work Phone: [facility] 09-19-2024 14:33-0500 Body weight 114.36 kg Brain Seamus DO Work Phone: [facility] 09-19-2024 14:33-0500 Diastolic blood pressure 70 mm[Hg] Brain Seamus DO Work Phone: [facility] 09-19-2024 14:33-0500 Systolic blood pressure 120 mm[Hg] Brain Seamus DO Work Phone: [facility] 09-07-2024 14:44-0500 Body mass index (BMI) [Ratio] 39.75 kg/m2 Mya Stef PA Work Phone: [facility] 09-07-2024 14:44-0500 Body weight 115.12 kg Mya Stef PA Work Phone: [facility] 09-07-2024 14:44-0500 Diastolic blood pressure 82 mm[Hg] Mya Stef PA Work Phone: [facility] 09-07-2024 14:44-0500 Systolic blood pressure 120 mm[Hg] Mya Stef PA Work Phone: [facility] 09-06-2024 14:04-0500 Body temperature 97.88 [degF] Flash Franco [facility] 09-06-2024 14:04-0500 Diastolic blood pressure 77 mm[Hg] Flash Franco [facility] 09-06-2024 14:04-0500 Heart rate 101 /min Flash Franco [facility] 09-06-2024 14:04-0500 Respiratory rate 18 /min Flash Franco [facility] 09-06-2024 14:04-0500 SaO2% (BldA) [Mass fraction] 99 % Flash Franco [facility] 09-06-2024 14:04-0500 Systolic blood pressure 122 mm[Hg] Flash Franco [facility] 09-05-2024 15:45-0500 Hourly Rounding Rogelio Nath [facility] Comment on above: Result Comment: discharge instructions g iven. monitors off and pt up to dress. 09-05-2024 15:35-0500 Hourly Rounding Rogelio Nath [facility] Comment on above: Result Comment: pt was able to keep spri te and lemon ice down. Wants to go home. 09-05-2024 14:49-0500 Hourly Rounding Rogelio Nath [facility] Comment on above: Result Comment: sprite, lemon ice and ju ice given per pt request. 09-05-2024 07:35-0500 Body temperature 98.24 [degF] Rogelio Nath [facility] 09-05-2024 07:35-0500 Diastolic blood pressure 42 mm[Hg] Rogelio Nath [facility] 09-05-2024 07:35-0500 Heart rate 109 /min Rogelio Nath [facility] 09-05-2024 07:35-0500 Mean blood pressure 65 mm[Hg] Rogelio Nath [facility] 09-05-2024 07:35-0500 Respiratory rate 18 /min Rogelio Nath [facility] 09-05-2024 07:35-0500 Systolic blood pressure 111 mm[Hg] Rogelio Nath [facility] 09-05-2024 07:30-0500 Blood Pressure Location Rogelio Nath [facility] 09-05-2024 04:32-0500 Blood Pressure Location Rogelio Nath [facility] 09-05-2024 04:32-0500 Body temperature 98.24 [degF] Rogelio Nath [facility] 09-05-2024 04:32-0500 Diastolic blood pressure 72 mm[Hg] Rogelio Nath [facility] 09-05-2024 04:32-0500 Heart rate 104 /min Rogelio Nath [facility] 09-05-2024 04:32-0500 Mean blood pressure 90 mm[Hg] Rogelio Nath [facility] 09-05-2024 04:32-0500 Respiratory rate 16 /min Rogelio Nath [facility] 09-05-2024 04:32-0500 SaO2% (BldA) [Mass fraction] 98 % Rogelio Nath [facility] 09-05-2024 04:32-0500 Systolic blood pressure 127 mm[Hg] Rogelio Nath [facility] 09-05-2024 04:00-0500 Diastolic blood pressure 64 mm[Hg] Rogelio Nath [facility] 09-05-2024 04:00-0500 Heart rate 115 /min Rogelio Nath [facility] 09-05-2024 04:00-0500 Mean blood pressure 86 mm[Hg] Rogelio Nath [facility] 09-05-2024 04:00-0500 Systolic blood pressure 129 mm[Hg] Rogelio Nath [facility] 09-05-2024 03:06-0500 Body temperature 97.7 [degF] Rogelio Nath [facility] 09-05-2024 03:06-0500 Heart rate 128 /min Rogelio Nath [facility] 09-05-2024 03:06-0500 Respiratory rate 20 /min Rogelio Nath [facility] 09-05-2024 03:06-0500 SaO2% (BldA) [Mass fraction] 98 % Rogelio Nath [facility] 08-25-2024 12:21-0500 Body height 170.18 cm Darwin Easterwood [employer]ER Work Phone: [facility] 08-25-2024 12:21-0500 Body mass index (BMI) [Ratio] 39.6 kg/m2 Darwin Easterwood [employer]ER Work Phone: [facility] 08-25-2024 12:21-0500 Body weight 114.75 kg Darwin Easterwood [employer] Work Phone: [facility] 08-25-2024 12:21-0500 Diastolic blood pressure 84 mm[Hg] Darwin Easterwood B[employer]ING BALL P[employer]ER Work Phone: [facility] 08-25-2024 12:21-0500 Heart rate 108 /min Darwin Easterwood [employer] P[employer]ER Work Phone: [facility] 08-25-2024 12:21-0500 Respiratory rate 18 /min Darwin Easterwood [employer] P[employer]ER Work Phone: [facility] 08-25-2024 12:21-0500 SaO2% (BldA) [Mass fraction] 98 % Darwin Easterwood [employer] P[employer]ER Work Phone: [facility] 08-25-2024 12:21-0500 Systolic blood pressure 132 mm[Hg] Darwin Easterwood [employer] B[employer] P[employer]ER Work Phone: [facility] 08-23-2024 11:00-0500 Body mass index (BMI) [Ratio] 40.16 kg/m2 Brain Seamus DO Work Phone: [facility] 08-23-2024 11:00-0500 Body weight 116.3 kg Brain Seamus DO Work Phone: [facility] 08-23-2024 11:00-0500 Diastolic blood pressure 78 mm[Hg] Brain Seamus DO Work Phone: [facility] 08-23-2024 11:00-0500 Systolic blood pressure 120 mm[Hg] Brain Seamus DO Work Phone: [facility] 07-11-2024 13:09-0500 Body mass index (BMI) [Ratio] 38.97 kg/m2 Brain Seamus DO Work Phone: [facility] 07-11-2024 13:09-0500 Body weight 112.86 kg Brain Seamus DO Work Phone: [facility] 07-11-2024 13:09-0500 Diastolic blood pressure 76 mm[Hg] Brain Seamus DO Work Phone: [facility] 07-11-2024 13:09-0500 Systolic blood pressure 120 mm[Hg] Brain Seamus DO Work Phone: [facility] 06-28-2024 08:04-0500 Body weight Darwin Jones APRN Work Phone: [facility] Comment on above: Not provided. 2024 14:13-0500 Diastolic blood pressure 78 mm[Hg] Hayden Coelho MD Work Phone: [facility] 2024 14:13-0500 Heart rate 88 /min Hayden Coelho MD Work Phone: [facility] 2024 14:13-0500 Systolic blood pressure 125 mm[Hg] Hayden Coelho MD Work Phone: [facility] 2024 13:18-0500 Body height 170.2 cm Hayden Coelho MD Work Phone: [facility] 06-12-2024 10:19-0400 Body mass index (BMI) [Ratio] 38.37 kg/m2 Brain Seamus DO Work Phone: [facility] 06-12-2024 10:19-0400 Body weight 111.13 kg Brain Seamus DO Work Phone: [facility] 06-12-2024 10:19-0400 Diastolic blood pressure 80 mm[Hg] Brain Seamus DO Work Phone: [facility] 06-12-2024 10:19-0400 Systolic blood pressure 122 mm[Hg] Brain Seamus DO Work Phone: [facility] 05-11-2024 11:04-0400 Body height 170.18 cm B[employer]LING BALL PATCHER Darwin Easterwood Work Phone: [facility] 05-11-2024 11:04-0400 Body mass index (BMI) [Ratio] 38.2 kg/m2 [employer] Darwin Easterwood Work Phone: [facility] 05-11-2024 11:04-0400 Body temperature 97.8 [degF] [employer] P[employer] Darwin Easterwood Work Phone: [facility] 05-11-2024 11:04-0400 Body weight 110.67 kg B[employer]ING BALL P[employer]ER Darwin Easterwood Work Phone: [facility] 05-11-2024 11:04-0400 Diastolic blood pressure 74 mm[Hg] B[employer]ING [employer] P[employer]ER Darwin Easterwood Work Phone: [facility] 05-11-2024 11:04-0400 Heart rate 90 /min [employer] P[employer] Darwin Easterwood Work Phone: [facility] 05-11-2024 11:04-0400 Respiratory rate 20 /min [employer] P[employer] Darwin Easterwood Work Phone: [facility] 05-11-2024 11:04-0400 SaO2% (BldA) [Mass fraction] 98 % [employer] P[employer] Darwin Jones Work Phone: [facility] 05-11-2024 11:04-0400 Systolic blood pressure 126 mm[Hg] B[employer]ING [employer] P[employer]ER Darwin Jones Work Phone: [facility] 05-10-2024 13:50-0400 Body mass index (BMI) [Ratio] 38.39 kg/m2 Brain Seamus DO Work Phone: [facility] 05-10-2024 13:50-0400 Body weight 111.19 kg Brain Seamus DO Work Phone: [facility] 05-10-2024 13:50-0400 Diastolic blood pressure 76 mm[Hg] Brain Seamus DO Work Phone: [facility] 05-10-2024 13:50-0400 Systolic blood pressure 120 mm[Hg] Brain Seamus DO Work Phone: [facility] 04-20-2024 10:37-0400 Body mass index (BMI) [Ratio] 38.53 kg/m2 Brain Seamus DO Work Phone: [facility] 04-20-2024 10:37-0400 Body weight 111.58 kg Brain Seamus DO Work Phone: [facility] 04-20-2024 10:37-0400 Diastolic blood pressure 76 mm[Hg] Brain Seamus DO Work Phone: [facility] 04-20-2024 10:37-0400 Systolic blood pressure 122 mm[Hg] Brain Seamus DO Work Phone: [facility] 04-07-2024 09:42-0400 Body mass index (BMI) [Ratio] 38.86 kg/m2 Nom Nurse [facility] 04-07-2024 09:42-0400 Body weight 112.55 kg Nom Nurse [facility] 04-07-2024 09:42-0400 Diastolic blood pressure 70 mm[Hg] Noms Nurse [facility] 04-07-2024 09:42-0400 Systolic blood pressure 120 mm[Hg] Noms Nurse [facility] 03-18-2024 11:50-0400 Diastolic blood pressure 83 mm[Hg] Toan Steine [facility] 03-18-2024 11:50-0400 Heart rate 75 /min Toan Steine [facility] 03-18-2024 11:50-0400 Mean blood pressure 97 mm[Hg] Toan Steine [facility] 03-18-2024 11:50-0400 Respiratory rate 16 /min Toan Steine [facility] 03-18-2024 11:50-0400 SaO2% (BldA) [Mass fraction] 98 % Toan Jaya [facility] 03-18-2024 11:50-0400 Systolic blood pressure 126 mm[Hg] Toan Steine [facility] 03-18-2024 09:46-0400 Hourly Rounding Toan Steine [facility] 03-18-2024 09:11-0400 Hourly Rounding Toan Steine [facility] 03-18-2024 08:10-0400 Body temperature 98.6 [degF] Toan Jaya [facility] 03-18-2024 08:10-0400 Diastolic blood pressure 91 mm[Hg] Toan Jaya [facility] 03-18-2024 08:10-0400 Heart rate 98 /min Toan Steine [facility] 03-18-2024 08:10-0400 Hourly Rounding Toan Steine [facility] 03-18-2024 08:10-0400 Respiratory rate 17 /min Toan Lake [facility] 03-18-2024 08:10-0400 SaO2% (BldA) [Mass fraction] 98 % Toan Lake [facility] 03-18-2024 08:10-0400 Systolic blood pressure 135 mm[Hg] Toan [place] [facility] 01-25-2024 08:59-0400 Body height 170.18 cm B[employer]LING BALL P[employer]ER Darwin Easterwood Work Phone: [facility] 01-25-2024 08:59-0400 Body mass index (BMI) [Ratio] 37.4 kg/m2 [employer] Darwin Easterwood Work Phone: [facility] 01-25-2024 08:59-0400 Body temperature 98 [degF] B[employer]LING B[employer] P[employer]ER Darwin Easterwood Work Phone: [facility] 01-25-2024 08:59-0400 Body weight 108.4 kg B[employer]ING BALL P[employer]ER Darwin Easterwood Work Phone: [facility] 01-25-2024 08:59-0400 Diastolic blood pressure 80 mm[Hg] B[employer]LING BALL P[employer]ER Darwin Easterwood Work Phone: [facility] 01-25-2024 08:59-0400 Heart rate 98 /min B[employer]ING BALL P[employer]ER Darwin Easterwood Work Phone: [facility] 01-25-2024 08:59-0400 Respiratory rate 20 /min B[employer]LING BALL P[employer]ER Darwin Easterwood Work Phone: [facility] 01-25-2024 08:59-0400 SaO2% (BldA) [Mass fraction] 99 % B[employer]ALL P[employer]ER Darwin Easterwood Work Phone: [facility] 01-25-2024 08:59-0400 Systolic blood pressure 122 mm[Hg] BOWLING BALL PATCHER Darwin Easterwood Work Phone: [facility] 12-24-2023 09:56-0400 Body height 170.18 cm BOWLING BALL PATCHERAkilah Jones Work Phone: [facility] 12-24-2023 09:56-0400 Body mass index (BMI) [Ratio] 37.7 kg/m2 BOWLING BALL PATCHERAkilah Jones Work Phone: [facility] 12-24-2023 09:56-0400 Body temperature 97.6 [degF] BOWLING BALL PATCHERAkilah Jonesermacy Work Phone: [facility] 12-24-2023 09:56-0400 Body weight 109.31 kg BOWLING BALL PATCHERAkilah Jones Work Phone: [facility] 12-24-2023 09:56-0400 Diastolic blood pressure 84 mm[Hg] BOWLING BALL PATCHERAkilah Jonesermacy Work Phone: [facility] 12-24-2023 09:56-0400 Heart rate 102 /min BOWLING BALL PATCHERAkilah Jonesermacy Work Phone: [facility] 12-24-2023 09:56-0400 Respiratory rate 20 /min BOWLING BALL PATCHERAkilah Jonesermacy Work Phone: [facility] 12-24-2023 09:56-0400 SaO2% (BldA) [Mass fraction] 98 % BOWLING BALL PATCHERAkilah Jonesermacy Work Phone: [facility] 12-24-2023 09:56-0400 Systolic blood pressure 126 mm[Hg] BOWLING BALL PATCHERAkliah Jonesermacy Work Phone: [facility] 11-25-2023 09:01-0400 Body height 170.18 cm BOWLING BALL PATCHERAkilah Jonesermacy Work Phone: [facility] 11-25-2023 09:01-0400 Body mass index (BMI) [Ratio] 37.7 kg/m2 BOWLING BALL PATCHERAkilah Jonesermacy Work Phone: [facility] 11-25-2023 09:01-0400 Body temperature 97 [degF] BOWLING BALL PATCHERAkilah Orosco Eastermacy Work Phone: [facility] 11-25-2023 09:01-0400 Body weight 109.31 kg BOWLING BALL PATCHERAkilah Orosco Eastermacy Work Phone: [facility] 11-25-2023 09:01-0400 Diastolic blood pressure 76 mm[Hg] BOWLING BALL PATCHER Darwin Eastermacy Work Phone: [facility] 11-25-2023 09:01-0400 Heart rate 95 /min BOWLING BALL PATCHER Darwin Robertermacy Work Phone: [facility] 11-25-2023 09:01-0400 Respiratory rate 20 /min BOWLING BALL PATCHERAkilah Jonesermacy Work Phone: [facility] 11-25-2023 09:01-0400 SaO2% (BldA) [Mass fraction] 98 % BOWLING BALL PATCHERAkilah Jonesermacy Work Phone: [facility] 11-25-2023 09:01-0400 Systolic blood pressure 120 mm[Hg] BOWLING BALL PATCHER Darwin Jonesermacy Work Phone: [facility] 11-18-2023 08:03-0400 Body weight 110.68 kg Ruby Whittington MD Work Phone: [facility] 11-18-2023 08:03-0400 Diastolic blood pressure 92 mm[Hg] Ruby Whittington MD Work Phone: [facility] 11-18-2023 08:03-0400 Heart rate 100 /min Ruby Whittington MD Work Phone: [facility] 11-18-2023 08:03-0400 Systolic blood pressure 132 mm[Hg] Ruby Whittington MD Work Phone: [facility] 10-20-2023 09:05-0500 Body height 170.18 cm BOWLING BALL PATCHER Darwin Jonesermacy Work Phone: [facility] 10-20-2023 09:05-0500 Body mass index (BMI) [Ratio] 38.3 kg/m2 BOWLING BALL P[employer]ER Darwin Jones Work Phone: [facility] 10-20-2023 09:05-0500 Body temperature 98 [degF] BOWLING BALL PATCHER Darwin Jones Work Phone: [facility] 10-20-2023 09:05-0500 Body weight 111.13 kg BOWLING BALL PATCHER Darwni Jones Work Phone: [facility] 10-20-2023 09:05-0500 Diastolic blood pressure 78 mm[Hg] BOWLING BALL PATCHER Darwin Jones Work Phone: [facility] 10-20-2023 09:05-0500 Heart rate 82 /min BOWLING BALL PATCHER Darwin Jones Work Phone: [facility] 10-20-2023 09:05-0500 Respiratory rate 20 /min BOWLING BALL PATCHER Darwin Jones Work Phone: [facility] 10-20-2023 09:05-0500 SaO2% (BldA) [Mass fraction] 98 % B[employer]LING BALL PATCHER Darwin Jones Work Phone: [facility] 10-20-2023 09:05-0500 Systolic blood pressure 124 mm[Hg] BOWLING BALL PATCHER Darwin Jones Work Phone: [facility] 09-29-2023 10:41-0500 Blood Pressure Location Tyrone Watkinsey [facility] 09-29-2023 10:41-0500 Body temperature 98.24 [degF] Tyrone Rock [facility] 09-29-2023 10:41-0500 Diastolic blood pressure 78 mm[Hg] Tyrnoe Rock [facility] 09-29-2023 10:41-0500 Heart rate 95 /min Tyrone Rock [facility] 09-29-2023 10:41-0500 SaO2% (BldA) [Mass fraction] 97 % Tyrone Rock [facility] 09-29-2023 10:41-0500 Systolic blood pressure 122 mm[Hg] Tyrone Rock [facility] 09-21-2023 09:00-0500 Body height 170.18 cm Darwin [employer] Other [employer] [facility] [employer] Other 09-21-2023 09:00-0500 Body mass index (BMI) [Ratio] 38.37 kg/m2 Darwin Easterwood Other [employer] Other 09-21-2023 09:00-0500 Body temperature 98 [degF] Darwin Easterwood Other [employer] [facility] Other 09-21-2023 09:00-0500 Body weight 111.13 kg Darwin Easterwood Other [facility] Other 09-21-2023 09:00-0500 Diastolic blood pressure 84 mm[Hg] Darwin Easterwood Other [facility] Other 09-21-2023 09:00-0500 Respiratory rate 20 /min Darwin Easterwood Other [facility] Other 09-21-2023 09:00-0500 SaO2% (BldA) [Mass fraction] 98 % Darwin Easterwood Other [employer] [facility] Other 09-21-2023 09:00-0500 Systolic blood pressure 126 mm[Hg] Darwin Easterwood Other [facility] [employer] Other 08-25-2023 09:30-0500 Body height 170.18 cm Darwin Easterwood Other [facility] 08-25-2023 09:30-0500 Body mass index (BMI) [Ratio] 39.46 kg/m2 Darwin Easterwood Other [facility] [employer] Other 08-25-2023 09:30-0500 Body temperature 97.6 [degF] Darwin Easterwood Other [facility] [employer] Other 08-25-2023 09:30-0500 Body weight 114.31 kg Darwin Easterwood Other [facility] [employer] Other 08-25-2023 09:30-0500 Body weight 114.3 kg BOWLING BALL PATCHER Darwin Easterwood Work Phone: [facility] 08-25-2023 09:30-0500 Diastolic blood pressure 80 mm[Hg] Darwin Easterwood Other [facility] 08-25-2023 09:30-0500 Respiratory rate 20 /min Darwin Easterwood Other [facility] [employer] Other 08-25-2023 09:30-0500 SaO2% (BldA) [Mass fraction] 98 % Darwin Easterwood Other [employer] Other 08-25-2023 09:30-0500 Systolic blood pressure 120 mm[Hg] Darwin Easterwood Other [facility] 07-23-2023 09:30-0500 Body height 170.18 cm BOWLING BALL PATCHER Darwin Easterwood Work Phone: [facility] 07-23-2023 09:30-0500 Body weight 116.57 kg BOWLING BALL PATCHER Darwin Easterwood Work Phone: [facility] 07-23-2023 09:30-0500 Diastolic blood pressure 80 mm[Hg] BOWLING BALL PATCHER Darwin Easterwood Work Phone: [facility] 07-23-2023 09:30-0500 Systolic blood pressure 118 mm[Hg] BOWLING BALL PATCHER Darwin Easterwood Work Phone: [facility] 06-23-2023 09:30-0500 Body height 170.18 cm Darwin Easterwood Other [employer] [facility] [employer] Other 06-23-2023 09:30-0500 Body mass index (BMI) [Ratio] 40.4 kg/m2 Darwin Easterwood Other [employer] [facility] Other 06-23-2023 09:30-0500 Body temperature 97.4 [degF] Darwin Easterwood Other [facility] Other 06-23-2023 09:30-0500 Body weight 117.03 kg Darwin Easterwood Other [employer] [facility] Other 06-23-2023 09:30-0500 Diastolic blood pressure 78 mm[Hg] Darwin Easterwood Other [employer] [facility] Other 06-23-2023 09:30-0500 Respiratory rate 20 /min Darwin Easterwood Other [facility] Other 06-23-2023 09:30-0500 SaO2% (BldA) [Mass fraction] 98 % Darwin Easterwood Other [facility] Other 06-23-2023 09:30-0500 Systolic blood pressure 120 mm[Hg] Darwin Easterwood Other [employer] [facility] Other 06-08-2023 14:00-0400 Body temperature 97.2 [degF] Francy Holloway PA-C Work Phone: [facility] 05-26-2023 10:30-0400 Body height 170.18 cm Darwin Easterwood Other [employer] [facility] [employer] Other 05-26-2023 10:30-0400 Body mass index (BMI) [Ratio] 41.5 kg/m2 Darwin Easterwood Other [employer] [facility] Other 05-26-2023 10:30-0400 Body temperature 98.4 [degF] Darwin Easterwood Other [facility] Other 05-26-2023 10:30-0400 Body weight 120.2 kg Darwin Easterwood Other [employer] [facility] Other 05-26-2023 10:30-0400 Diastolic blood pressure 70 mm[Hg] Darwin Easterwood Other [facility] Other 05-26-2023 10:30-0400 Respiratory rate 20 /min Darwin Easterwood Other [facility] Other 05-26-2023 10:30-0400 SaO2% (BldA) [Mass fraction] 97 % Darwin Easterwood Other [facility] Other 05-26-2023 10:30-0400 Systolic blood pressure 112 mm[Hg] Darwin Easterwood Other [facility] Other 04-28-2023 09:15-0400 Body height 170.18 cm Darwin EasterBlinkbuggy Other [facility] Other 04-28-2023 09:15-0400 Body mass index (BMI) [Ratio] 41.34 kg/m2 Darwin Easterwood Other [facility] Other 04-28-2023 09:15-0400 Body temperature 97.2 [degF] Darwin EasterBlinkbuggy Other [facility] Other 04-28-2023 09:15-0400 Body weight 119.75 kg Darwin EasterBlinkbuggy Other [facility] Other 04-28-2023 09:15-0400 Diastolic blood pressure 82 mm[Hg] Darwin Easterwood Other [employer] [facility] Other 04-28-2023 09:15-0400 Respiratory rate 20 /min Darwin Easterwood Other [facility] Other 04-28-2023 09:15-0400 SaO2% (BldA) [Mass fraction] 97 % Darwin Easterwood Other [facility] Other 04-28-2023 09:15-0400 Systolic blood pressure 120 mm[Hg] Darwin Easterwood Other [facility] Other 04-16-2023 11:00-0400 Body height 170.18 cm Darwin Easterwood Other [facility] Other 04-16-2023 11:00-0400 Body mass index (BMI) [Ratio] 41.03 kg/m2 Darwin Easterwood Other [facility] Other 04-16-2023 11:00-0400 Body temperature 97.8 [degF] Darwin RoberterBlinkbuggy Other [facility] Other 04-16-2023 11:00-0400 Body weight 118.84 kg Darwin JoneserBlinkbuggy Other [facility] Other 04-16-2023 11:00-0400 Diastolic blood pressure 80 mm[Hg] Darwin RoberterBlinkbuggy Other [facility] Other 04-16-2023 11:00-0400 Respiratory rate 20 /min Darwin [employer] Other [facility] Other 04-16-2023 11:00-0400 SaO2% (BldA) [Mass fraction] 98 % Darwin [employer] Other [facility] Other 04-16-2023 11:00-0400 Systolic blood pressure 120 mm[Hg] Darwin RoberterBlinkbuggy Other [facility] Other 03-22-2023 22:51-0400 Diastolic blood pressure 74 mm[Hg] Kaylinn Dokken [facility] 03-22-2023 22:51-0400 Heart rate 80 /min Kaylinn Dokken [facility] 03-22-2023 22:51-0400 Mean blood pressure 92 mm[Hg] Kaylinn Dokken [facility] 03-22-2023 22:51-0400 Respiratory rate 16 /min Kaylinn Dokken [facility] 03-22-2023 22:51-0400 SaO2% (BldA) [Mass fraction] 98 % Kaylinn Dokken [facility] 03-22-2023 22:51-0400 Systolic blood pressure 128 mm[Hg] Kaylinn Dokken [facility] 03-22-2023 21:24-0400 Heart rate 76 /min Kaylinn Dokken [facility] 03-22-2023 21:24-0400 Respiratory rate 16 /min Kaylinn Dokken [facility] 03-22-2023 21:24-0400 SaO2% (BldA) [Mass fraction] 97 % Kaylinn Dokken [facility] 03-22-2023 19:54-0400 Body temperature 98.06 [degF] Kaylinn Dokken [facility] 03-22-2023 19:54-0400 Diastolic blood pressure 89 mm[Hg] Kaylinn Dokken [facility] 03-22-2023 19:54-0400 Heart rate 81 /min Kaylinn Dokken [facility] 03-22-2023 19:54-0400 Respiratory rate 18 /min Kaylinn Dokken [facility] 03-22-2023 19:54-0400 SaO2% (BldA) [Mass fraction] 99 % Kaylinn Dokken [facility] 03-22-2023 19:54-0400 Systolic blood pressure 138 mm[Hg] Kaylinn Dokken [facility] 03-22-2023 15:18-0400 Body height 170.18 cm BOWLING BALL PATCHER Darwin Easterwood Work Phone: [facility] 03-22-2023 15:18-0400 Body temperature 98.2 [degF] BOWLING BALL PATCHER Darwin Easterwood Work Phone: [facility] 03-22-2023 15:18-0400 Body weight 120.5 kg BOWLING BALL PATCHER Darwin Easterwood Work Phone: [facility] 03-22-2023 15:18-0400 Diastolic blood pressure 74 mm[Hg] BOWLING BALL PATCHER Darwin Easterwood Work Phone: [facility] 03-22-2023 15:18-0400 Heart rate 92 /min BOWLING BALL PATCHER Darwin Easterwood Work Phone: [facility] 03-22-2023 15:18-0400 Respiratory rate 20 /min BOWLING BALL PATCHER Darwin Easterwood Work Phone: [facility] 03-22-2023 15:18-0400 SaO2% (BldA) [Mass fraction] 97 % BOWLING BALL PATCHER Darwin Easterwood Work Phone: [facility] 03-22-2023 15:18-0400 Systolic blood pressure 175 mm[Hg] BOWLING BALL PATCHER Darwin Easterwood Work Phone: [facility] 10-05-2022 09:00-0500 Body height 170.18 cm Ofeliaher Couchler Other [facility] Other 10-05-2022 09:00-0500 Body mass index (BMI) [Ratio] 37.21 kg/m2 Ofelia Missler Other [facility] Other 10-05-2022 09:00-0500 Body weight 107.78 kg Ofelia Missler Other [facility] Other 10-05-2022 09:00-0500 Diastolic blood pressure 45 mm[Hg] Ofelia Missler Other [facility] Other 10-05-2022 09:00-0500 Respiratory rate 18 /min Ofelia Missler Other [facility] Other 10-05-2022 09:00-0500 SaO2% (BldA) [Mass fraction] 97 % Ofelia Missler Other [facility] Other 10-05-2022 09:00-0500 Systolic blood pressure 100 mm[Hg] Ofelia Missler Other [facility] Other 09-02-2022 11:30-0500 Body height 170.18 cm Ofelia Missler Other [facility] Other 09-02-2022 11:30-0500 Body mass index (BMI) [Ratio] 38.04 kg/m2 Ofelia Missler Other [facility] Other 09-02-2022 11:30-0500 Body weight 110.18 kg Ofelia Missler Other [facility] Other 09-02-2022 11:30-0500 Diastolic blood pressure 79 mm[Hg] Ofelia Missler Other [facility] Other 09-02-2022 11:30-0500 Respiratory rate 18 /min Ofelia Missler Other [facility] Other 09-02-2022 11:30-0500 SaO2% (BldA) [Mass fraction] 96 % Ofelia Missler Other [facility] Other 09-02-2022 11:30-0500 Systolic blood pressure 119 mm[Hg] Ofelia Missler Other [facility] Other 08-25-2022 14:00-0500 Body height 170.18 cm Lilly Fitt Other [facility] Other 08-25-2022 14:00-0500 Body mass index (BMI) [Ratio] 38.01 kg/m2 Lilly Fitt Other [facility] Other 08-25-2022 14:00-0500 Body weight 110.09 kg Lilly Fitt Other [facility] Other 07-31-2022 09:45-0500 Body height 170.18 cm Ofelia Missler Other [facility] Other 07-31-2022 09:45-0500 Body mass index (BMI) [Ratio] 38.2 kg/m2 Ofelia Missler Other [facility] Other 07-31-2022 09:45-0500 Body weight 110.63 kg Ofelia Missler Other [facility] Other 07-31-2022 09:45-0500 Diastolic blood pressure 78 mm[Hg] Ofelia Missler Other [facility] Other 07-31-2022 09:45-0500 Respiratory rate 18 /min Ofelia Missler Other [facility] Other 07-31-2022 09:45-0500 SaO2% (BldA) [Mass fraction] 96 % Ofelia Missler Other [facility] Other 07-31-2022 09:45-0500 Systolic blood pressure 135 mm[Hg] Ofelia Missler Other [facility] Other 07-14-2022 08:49-0500 Body height 170.5 cm Ruby Whittington MD Work Phone: [facility] 07-14-2022 08:49-0500 Body weight 111.58 kg Ruby Whittington MD Work Phone: [facility] 07-14-2022 08:49-0500 Diastolic blood pressure 73 mm[Hg] Ruby Whittington MD Work Phone: [facility] 07-14-2022 08:49-0500 Heart rate 92 /min Ruby Whittington MD Work Phone: [facility] 07-14-2022 08:49-0500 Systolic blood pressure 140 mm[Hg] Ruby Whittington MD Work Phone: [facility] 06-17-2022 15:45-0400 Body height 170.18 cm Ofelia Missler Other [facility] Other 06-17-2022 15:45-0400 Body mass index (BMI) [Ratio] 38.99 kg/m2 Ofelia Missler Other [facility] Other 06-17-2022 15:45-0400 Body weight 112.95 kg Ofelia Missler Other [facility] Other 06-17-2022 15:45-0400 Diastolic blood pressure 90 mm[Hg] Ofelia Missler Other [facility] Other 06-17-2022 15:45-0400 Respiratory rate 18 /min Ofelia Missler Other [facility] Other 06-17-2022 15:45-0400 SaO2% (BldA) [Mass fraction] 96 % Ofelia Hester Other [facility] Other 06-17-2022 15:45-0400 Systolic blood pressure 140 mm[Hg] Ofelia Hester Other [facility] Other 06-04-2022 13:00-0400 Body height 170.18 cm Sima Ross Other [facility] Other 06-04-2022 13:00-0400 Body mass index (BMI) [Ratio] 38.37 kg/m2 Sima Ross Other [facility] Other 06-04-2022 13:00-0400 Body temperature 98.6 [degF] Sima Ross Other [facility] Other 06-04-2022 13:00-0400 Body weight 111.13 kg Sima Ross Other [facility] Other 06-04-2022 13:00-0400 Diastolic blood pressure 83 mm[Hg] Sima Ross Other [facility] Other 06-04-2022 13:00-0400 Respiratory rate 18 /min Sima Ross Other [facility] Other 06-04-2022 13:00-0400 SaO2% (BldA) [Mass fraction] 99 % Sima Ross Other [facility] Other 06-04-2022 13:00-0400 Systolic blood pressure 124 mm[Hg] Sima Ross Other [facility] Other 05-27-2022 12:15-0400 Body height 170.18 cm Lilly Luke Other [facility] Other 05-18-2022 09:30-0400 Body height 170.18 cm Ofelia Missler Other [facility] Other 05-18-2022 09:30-0400 Body mass index (BMI) [Ratio] 39.37 kg/m2 Ofelia Missler Other [facility] Other 05-18-2022 09:30-0400 Body temperature 98.1 [degF] Ofelia Missler Other [facility] Other 05-18-2022 09:30-0400 Body weight 114.04 kg Ofelia Missler Other [facility] Other 05-18-2022 09:30-0400 Diastolic blood pressure 80 mm[Hg] Ofelia Missler Other [facility] Other 05-18-2022 09:30-0400 Respiratory rate 18 /min Ofelia Missler Other [facility] Other 05-18-2022 09:30-0400 SaO2% (BldA) [Mass fraction] 99 % Ofelia Missler Other [facility] Other 05-18-2022 09:30-0400 Systolic blood pressure 115 mm[Hg] Ofelia Missler Other [facility] Other 04-17-2022 09:30-0400 Body height 170.18 [facility] Other 04-17-2022 09:30-0400 Body mass index (BMI) [Ratio] 39.15 kg/m2 Darwin Jonesermacy Other [facility] Other 04-17-2022 09:30-0400 Body temperature 96.9 [degF] Darwin Jones Other [facility] Other 04-17-2022 09:30-0400 Body weight 113.4 kg Darwin Jones Other [facility] Other 04-17-2022 09:30-0400 Diastolic blood pressure 82 mm[Hg] Darwin Robertermacy Other [facility] Other 04-17-2022 09:30-0400 Respiratory rate 20 /min Darwin Jones Other [facility] Other 04-17-2022 09:30-0400 SaO2% (BldA) [Mass fraction] 99 % Darwin Jonesermacy Other [facility] Other 04-17-2022 09:30-0400 Systolic blood pressure 124 mm[Hg] Darwin Easterwood Other [facility] Other 02-18-2022 21:41-0400 Diastolic blood pressure 88 mm[Hg] Fazal Antoni [facility] 02-18-2022 21:41-0400 Heart rate 84 /min Fazal Antoni [facility] 02-18-2022 21:41-0400 Mean blood pressure 101 mm[Hg] Fazal Antoni [facility] 02-18-2022 21:41-0400 Respiratory rate 17 /min Fazal Antoni [facility] 02-18-2022 21:41-0400 SaO2% (BldA) [Mass fraction] 98 % [employer] Other [facility] Other 02-18-2022 21:41-0400 Systolic blood pressure 126 mm[Hg] Fazal Antoni [facility] 02-18-2022 20:42-0400 gluc 106 mg/dL Fazal Antoni [facility] 02-18-2022 20:42-0400 gluc Fazal Antoni [facility] 02-18-2022 20:33-0400 Body temperature 98.06 [degF] Fazal Antoni [facility] 02-18-2022 20:33-0400 Diastolic blood pressure 99 mm[Hg] Fazal Antoni [facility] 02-18-2022 20:33-0400 Heart rate 99 /min Fazal Antoni [facility] 02-18-2022 20:33-0400 Respiratory rate 18 /min Fazal Antoni [facility] 02-18-2022 20:33-0400 Systolic blood pressure 153 mm[Hg] Fazal Antoni [facility] 02-18-2022 10:00-0400 Body height 170.18 cm [employer] Other [facility] Other 02-18-2022 10:00-0400 Body mass index (BMI) [Ratio] 38.52 kg/m2 [employer] Other [facility] Other 02-18-2022 10:00-0400 Body temperature 97 [degF] Darwin Easterwood Other [facility] Other 02-18-2022 10:00-0400 Body weight 111.59 kg Darwin Easterwood Other [facility] Other 02-18-2022 10:00-0400 Diastolic blood pressure 82 mm[Hg] Darwin Easterwood Other [facility] Other 02-18-2022 10:00-0400 Respiratory rate 20 /min Darwin Easterwood Other [facility] Other 02-18-2022 10:00-0400 Systolic blood pressure 118 mm[Hg] Darwin Easterwood Other [facility] Other 02-11-2022 12:00-0400 Body height 170.18 cm Darwin Easterwood Other [facility] Other 02-11-2022 12:00-0400 Body mass index (BMI) [Ratio] 37.9 kg/m2 Darwin Easterwood Other [facility] Other 02-11-2022 12:00-0400 Body temperature 97.2 [degF] Darwin Easterwood Other [facility] Other 02-11-2022 12:00-0400 Body weight 109.77 kg Darwin Easterwood Other [facility] Other 02-11-2022 12:00-0400 Diastolic blood pressure 88 mm[Hg] Darwin Easterwood Other [facility] Other 02-11-2022 12:00-0400 Respiratory rate 20 /min Darwin Jones Other [facility] Other 02-11-2022 12:00-0400 SaO2% (BldA) [Mass fraction] 98 % Darwin Jones Other [facility] Other 02-11-2022 12:00-0400 Systolic blood pressure 126 mm[Hg] Darwin Jones Other [facility] Other 09-03-2021 10:02-0500 Diastolic blood pressure 86 mm[Hg] Unknown [facility] DO Work Phone: 09-03-2021 10:02-0500 Systolic blood pressure 110 mm[Hg] Unknown [facility] DO Work Phone: 09-03-2021 09:55-0500 Body height 170.18 cm Unknown [facility] 600 DO Work Phone: 09-03-2021 09:55-0500 Body mass index (BMI) [Ratio] 32.36 kg/m2 Unknown Unknown [facility] 600 DO Work Phone: 09-03-2021 09:55-0500 Body surface area Derived from formula 2.05 m2 Unknown Unknown [facility] 600 DO Work Phone: 09-03-2021 09:55-0500 Body weight 93.71 kg Unknown Unknown [facility] 600 DO Work Phone: 09-03-2021 09:55-0500 Diastolic blood pressure 84 mm[Hg] Unknown Unknown [facility] 600 DO Work Phone: 09-03-2021 09:55-0500 Heart rate 72 /min Unknown Unknown [facility] 600 DO Work Phone: 09-03-2021 09:55-0500 Systolic blood pressure 122 mm[Hg] Unknown Unknown [facility] 600 DO Work Phone: Encounters Encounter Date Encounter Type Care Provider Facility Start: 05-18-2025 End: 05-18-2025 ambulatory [facility] Facility:[facility] Start: 05-14-2025 End: 05-14-2025 Patient encounter procedure Darwin Jaclyn Easterwood BOWLING BALL PATCHER -Lab [facility] Work Phone: Start: 05-14-2025 End: 05-14-2025 ambulatory Darwin Jaclyn Easterwood BOWLING BALL PATCHER Work Phone: [facility] Work Phone: Start: 05-11-2025 End: 05-11-2025 Patient encounter procedure Ofelia Hester BOWLING BALL PATCHER -Lab [facility] Work Phone: Start: 05-11-2025 End: 05-11-2025 Departed Referred Addi Reaves [facility] Start: 05-11-2025 End: 05-11-2025 ambulatory Darwin J Easterwood BOWLING BALL PATCHER Work Phone: [facility] Work Phone: Start: 04-25-2025 End: 04-25-2025 ambulatory Darwin Jaclyn Easterwood BOWLING BALL PATCHER Work Phone: [facility] Work Phone: Start: 04-25-2025 End: 04-25-2025 Patient encounter procedure Ofelia Hester BOWLING BALL PATCHER -[facility] Work Phone: Start: 03-05-2025 End: 03-05-2025 ambulatory Darwin Jaclyn Easterwood BOWLING BALL PATCHER Work Phone: [facility] Work Phone: Start: 03-05-2025 End: 03-05-2025 Patient encounter procedure Ofelia Hester BOWLING BALL PATCHER -[facility] Work Phone: Start: 01-25-2025 End: 01-25-2025 Patient encounter procedure Darwin Jones BOWLING BALL PATCHER -Lab [facility] Work Phone: Start: 01-25-2025 End: 01-25-2025 ambulatory Darwin Jones Facility:[facility] Start: 01-22-2025 End: 01-22-2025 ambulatory Darwin Jones BOWLING BALL PATCHER Work Phone: [facility] Work Phone: Start: 01-22-2025 End: 01-22-2025 Patient encounter procedure Darwin Jones BOWLING BALL PATCHER Work Phone: [facility] Work Phone: Start: 12-13-2024 End: 12-13-2024 care visit Leah Mata NP Work Phone: [facility] Comment on above: 6 weeks f ollow-up Start: 12-13-2024 End: 12-13-2024 ambulatory LEAH MATA Not Available Start: 11-15-2024 End: 11-15-2024 Bamboo flowsheet Mya MCMILLAN Work Phone: [facility] Start: 11-15-2024 End: 11-15-2024 Bamboo flowsheet Mya MCMILLAN Work Phone: [facility] Start: 11-15-2024 End: 11-15-2024 flow sheet Mya MCMILLAN Work Phone: [facility] Comment on above: S/P section ; Incisional irritation, initial encounter; Incisional pain Start: 11-15-2024 End: 11-15-2024 ambulatory MYA FINCH Not Available Start: 11-09-2024 End: 11-09-2024 Patient encounter procedure Darwin Jones BOWLING BALL PATCHER Work Phone: [facility] Work Phone: Start: 11-09-2024 End: 11-09-2024 ambulatory Darwin Jones BOWLING BALL PATCHER Work Phone: [facility] Work Phone: Start: 11-08-2024 End: 11-08-2024 ambulatory MYA FINCH Not Available Start: 11-01-2024 Non-patient / Non-visit Darwin corral BOWLING BALL PATCHER Work Phone: [facility] [facility] Work Phone: Start: 10-31-2024 Non-patient / Non-visit Darwin corral BOWLING BALL PATCHER Work Phone: [facility] [facility] Work Phone: Start: 10-26-2024 End: 10-26-2024 Clinisync Result Encounter Brain Seamus DO Work Phone: [facility] Unsolicited Start: 10-26-2024 End: 10-26-2024 Clinisync Result Encounter Brain Seamus DO Work Phone: [facility] Unsolicited Start: 10-26-2024 End: 10-26-2024 flow sheet Mya MCMILLAN Work Phone: [facility] Comment on above: 38 weeks [...] f ; Third trimester ; Anxiety, generalized ([facility]) Start: 10-14-2024 End: 10-14-2024 Lab Drop off Lesley Blanco [facility] Start: 10-14-2024 End: 10-14-2024 ambulatory Lesley Blanco Facility:[facility] Start: 10-14-2024 End: 10-14-2024 Patient encounter procedure Lesley Blanco [facility] Start: 10-13-2024 End: 10-13-2024 [...] Phone: [facility] Unsolicited Start: 10-10-2024 Non-patient / Non-visit Darwin corral APRN Work Phone: [facility] Work Phone: Start: 10-10-2024 End: 10-10-2024 flow sheet Brain [...] End: 09-21-2024 Patient encounter procedure Darwin Jones BOWLING BALL PATCHER Work Phone: [facility] [place] Work Phone: Start: 09-21-2024 End: 09-21-2024 ambulatory Darwin Jones BOWLING BALL PATCHER Work Phone: [facility] Work Phone: Start: 09-19-2024 End: [...] End: 09-14-2024 Patient encounter procedure Darwin Jones BOWLING BALL PATCHER Work Phone: [facility]-Electrodiagnostics Work Phone: Start: 09-14-2024 End: 09-14-2024 ambulatory Darwin Larawood BOWLING BALL PATCHER Work Phone: [facility] Work Phone: Start: 09-14-2024 Non-patient / Non-visit Darwin ewingwood BOWLING BALL PATCHER Work Phone: [facility]Count[facility] [address] [facility] Work Phone: Start: 09-11-2024 End: 09-11-2024 Clinisync [...] Start: 09-07-2024 Non-patient / Non-visit Darwin corral BOWLING BALL PATCHER Work Phone: [facility] Work Phone: Start: 09-06-2024 End: 09-06-2024 Emergency department patient visit Flash Franco [facility] Start: 09-05-2024 ambulatory Rogelio Nath Facility :[facility] Start: 09-05-2024 End: 09-05-2024 ambulatory Rogelio Nath Facility:[facility] Start: 09-05-2024 Emergency department patient visit DO Annaakilah Kenan Sellersodinelizabeth Facility:[facility] Start: 09-05-2024 End: 09-05-2024 Observation Rogelio Nath [facility] Start: 08-25-2024 End: 08-25-2024 Clinisync Result Encounter Brain Seamus DO Work Phone: [facility] Unsolicited Start: 08-25-2024 End: 08-25-2024 Clinisync Result Encounter Brain Seamus DO Work Phone: [facility] Unsolicited Start: 08-25-2024 End: 08-25-2024 ambulatory Darwin Jones BOWLING BALL PATCHER Work Phone: [facility] Work Phone: Start: 08-25-2024 End: 08-25-2024 Patient encounter procedure Darwin Jones APRN Work Phone: [facility] [address] [facility] Work Phone: Start: 08-23-2024 End: [...] Not Available Start: 08-02-2024 End: 08-02-2024 [facility] Start: 07-31-2024 End: 07-31-2024 Patient encounter procedure Darwin Jones APRN Work Phone: [facility] [place] Work Phone: Start: 07-31-2024 End: 07-31-2024 Orders Only Hayden Coelho MD Work Phone: [facility] - Labor Comment on above: History of pericardi tis (Primary Dx); Mild concentric left ventricular hypertrophy (LVH); 25 weeks gestation of Start: 07-27-2024 End: 07-27-2024 ambulatory NO PCP NO PCP [facility] Start: 07-11-2024 End: 07-11-2024 flow sheet Brain Seamus DO Work Phone: [facility] Comment on above: 22 weeks gestation o f ; Second trimester ; Nausea and vomiting during ; Diabetes mellitus screening Start: 06-28-2024 End: 06-28-2024 Patient encounter procedure Darwin Jones BOWLING BALL PATCHER Work Phone: [facility] [place] Work Phone: Start: 06-28-2024 End: 06-28-2024 ambulatory Darwin Jones BOWLING BALL PATCHER Work Phone: [facility] Work Phone: Start: 2024 End: 2024 Office consultation new/estab patient 60 min Hayden Coelho MD Work Phone: [facility] [place] Comment on above: 20 weeks gestation o f (Primary Dx); Tiffani's disease; 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; Hx of preeclampsia, prior , currently ; Elevated BP without diagnosis of hypertension; History of pericarditis; with history of section, antepartum; History of macrosomia in in prior , currently ; Obesity affecting , antepartum, unspecified obesity type; Depression affecting Start: 2024 End: 2024 ambulatory [facility] Start: 06-22-2024 End: 06-22-2024 Patient encounter procedure Darwin Jones APRN Work Phone: [facility] [place] Work Phone: Start: 06-22-2024 End: 06-22-2024 ambulatory Darwin Jones BOWLING BALL PATCHER Work Phone: [facility] Work Phone: Start: 06-21-2024 End: 06-21-2024 Chart abstracting Hayden Coelho MD Work Phone: [facility] Start: 06-12-2024 End: 06-12-2024 [facility] Work Phone: [facility] Start: [...] SEAMUS Not Available Start: 05-24-2024 End: 05-24-2024 ambulatory BOWLING BALL PATCHERAkilah Anaya Robertershubuta Work Phone: [facility] Work Phone: Start: 05-24-2024 End: 05-24-2024 Patient encounter [facility] Work Phone: [facility] [place] Work Phone: Start: 05-11-2024 End: 05-11-2024 ambulatory BOWLING BALL PATCHER[facility]ilah [facility] Work Phone: [facility] Work Phone: Start: 05-11-2024 End: 05-11-2024 Encounter for general adult medical examination without abnormal findings SHIRLEY Orosco Janeshubuta Work Phone: [facility] Start: 05-11-2024 End: 05-11-2024 Patient encounter procedure SHIRLEY Orosco Yasir Work Phone: [facility] Work Phone: Start: 05-10-2024 End: 05-10-2024 Bamboo [...] FINCH Not Available Start: 04-06-2024 End: 04-06-2024 ambulatory BOWLING BALL PATCHER Darwin Jonesermacy Work Phone: [facility] Work Phone: Start: 04-06-2024 End: 04-06-2024 Departed Referred BOWLING BALL PATCHER Darwni Jones Work Phone: [facility] Start: 03-21-2024 End: 03-21-[address] Not Available Start: 03-18-2024 End: 03-18-2024 Emergency department patient visit [place] [facility] Start: 02-24-2024 End: 02-24-2024 ambulatory BOWLING BALL PATCHER Darwin Jonesermacy Work Phone: [facility] Work Phone: Start: 02-24-2024 End: 02-24-2024 Patient encounter procedure BOWLING BALL PATCHER Darwin Jones Work Phone: [facility] Work Phone: Start: 01-25-2024 End: 01-25-2024 ambulatory BOWLING BALL PATCHER Darwin Jonesermacy Work Phone: [facility] Work Phone: Start: 01-25-2024 End: 01-25-2024 Patient encounter procedure BOWLING BALL PATCHER Darwin Jones Work Phone: [facility] Work Phone: Start: 01-24-2024 End: 01-24-2024 ambulatory BOWLING BALL PATCHER Darwin Jonesermacy Work Phone: [facility] Work Phone: Start: 01-24-2024 End: 01-24-2024 Patient encounter procedure BOWLING BALL PATCHER Darwin Joneserwood Work Phone: [facility] [place] Work Phone: Start: 12-27-2023 End: 12-27-2023 ambulatory BOWLING BALL PATCHER Darwin Anaya Easterwood Work Phone: [facility] Work Phone: Start: 12-27-2023 End: 12-27-2023 Patient encounter procedure BOWLING BALL PATCHER Darwin Joneserwood Work Phone: [facility] [place] Work Phone: Start: 12-24-2023 End: 12-24-2023 ambulatory BOWLING BALL PATCHER Darwin Anaya Easterwood Work Phone: [facility] Work Phone: Start: 12-24-2023 End: 12-24-2023 Patient encounter procedure BOWLING BALL PATCHER Darwin Joneserwood Work Phone: [facility] Work Phone: Start: 11-30-2023 End: 11-30-2023 ambulatory BOWLING BALL PATCHER Darwin Joneserwood Work Phone: [facility] Work Phone: Start: 11-30-2023 End: 11-30-2023 Patient encounter procedure BOWLING BALL PATCHER Darwin Joneserwood Work Phone: [facility] [place] Work Phone: Start: 11-25-2023 End: 11-25-2023 ambulatory BOWLING BALL PATCHER Darwin Anaya Easterwood Work Phone: [facility] Work Phone: Start: 11-25-2023 End: 11-25-2023 Patient encounter procedure BOWLING BALL PATCHER Darwin Joneserwood Work Phone: [facility] Work Phone: Start: 11-18-2023 End: 11-18-2023 Patient encounter procedure Ruby Whittington MD Work Phone: Endocrinology Comment on above: 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); Class 2 obesity; Irregular menstruation, unspecified; Female infertility; Calculus of kidney Start: 11-01-2023 End: 11-01-2023 ambulatory BOWLING BALL PATCHERAkilah Anaya Yasir Work Phone: [facility] Work Phone: Start: 11-01-2023 End: 11-01-2023 Patient encounter procedure SHIRLEY Darwin Yasir Work Phone: [facility] [place] Work Phone: Start: 10-20-2023 End: 10-20-2023 Patient encounter procedure SHIRLEY Orosco Yasir Work Phone: [facility] Work Phone: Start: 10-01-2023 End: 10-01-2023 ambulatory SHIRLEY Anaya Yasir Work Phone: [facility] Work Phone: Start: 10-01-2023 End: 10-01-2023 Patient encounter procedure BOWLING BALL PATCHER Darwin Jones Work Phone: [facility] [place] Work Phone: Start: 09-29-2023 End: 09-29-2023 ambulatory Tyrone Rock Facility:[facility] Start: 09-29-2023 End: 09-29-2023 Patient encounter procedure Tyrone Rock [facility] Start: 09-21-2023 End: 09-21-2023 ambulatory Darwin Yasir Other [facility] Other Start: 09-21-2023 Office outpatient vi sit 15 minutes Darwin Roberterwood [facility] Start: 08-30-2023 Patient encounter procedure BOWLING BALL PATCHER Darwin Jones Work Phone: [facility]- Start: 08-25-2023 End: 08-25-2023 ambulatory Darwin Easterwood Other [facility] Other Start: 08-25-2023 Follow-up encounter Darwin Roberterwood [facility] Start: 08-25-2023 End: 08-25-2023 Patient encounter procedure BOWLING BALL PATCHER Darwinkenan Jones Work Phone: [facility] Work Phone: Start: 07-23-2023 End: 07-23-2023 Patient encounter procedure BOWLING BALL PATCHER Darwin Jones Work Phone: [facility] Work Phone: Start: 07-16-2023 Telephone encounter Ruby sneed MD Work Phone: Endocrinology Comment on above: Appointment Start: 06-23-2023 End: 06-23-2023 ambulatory Darwin Roberterwood Other [facility] Other Start: 06-23-2023 Office outpatient vi sit 15 minutes Darwin Roberterwood [facility] Start: 06-08-2023 End: 06-08-2023 Patient encounter procedure Francy Holloway PA-C Work Phone: Otolaryngology Comment on above: Dysphagia, unspecifi ed type (Primary Dx); LPRD (laryngopharyngeal reflux disease) Start: 05-26-2023 End: 05-26-2023 ambulatory Darwin Easterwood Other [facility] Other Start: 05-26-2023 Office outpatient vi sit 25 minutes Darwin Easterwood [facility] Start: 05-06-2023 End: 05-06-2023 ambulatory BOWLING BALL PATCHER Darwin Jones Work Phone: [facility] Work Phone: Start: 05-06-2023 End: 05-06-2023 Patient encounter procedure SHIRLEY Jones Work Phone: [facility]Ultrasound [place] Work Phone: Start: 04-28-2023 End: 04-28-2023 ambulatory Darwin Jones Other [facility] Other Start: 04-28-2023 Office outpatient vi sit 40 minutes Darwin [facility] Start: 04-16-2023 End: 04-16-2023 ambulatory Darwin [facility] Other [facility] [employer] Other Start: 04-16-2023 Encounter for genera l adult medical examination without abnormal findings Darwin [facility] Start: 04-16-2023 Periodic preventive med est patient 18-39 yrs Darwin [facility] Start: 04-08-2023 End: 04-08-2023 ambulatory BOWLING BALL PATCHER Darwin Jones Work Phone: [facility] Work Phone: Start: 04-08-2023 End: 04-08-2023 Departed Referred BOWLING BALL PATCHER Darwin Jones Work Phone: [facility]-Employee Benefit Screening Start: 03-22-2023 End: 03-22-2023 Emergency department patient visit Gabriel Curtis [facility] Start: 03-22-2023 End: 03-22-2023 Emergency department patient visit BOWLING BALL PATCHERAkilah Jones Work Phone: [facility]-Emergency Room Work Phone: Start: 02-28-2023 End: 02-28-2023 Departed Referred SHIRLEY Jones Work Phone: [facility] Scre[facility] Start: 02-28-2023 End: 02-28-2023 ambulatory SHIRLEY Jones Work Phone: [facility] Work Phone: Start: 02-28-2023 End: 02-28-2023 Patient encounter procedure SHIRLEY Jones Work Phone: [facility] [address] Work Phone: Start: 12-10-2022 End: 12-10-2022 ambulatory SHIRLEY Jones Work Phone: [facility] Work Phone: Start: 12-10-2022 End: 12-10-2022 Patient encounter procedure SHIRLEY Jones Work Phone: [facility] [place] Work Phone: Start: 12-09-2022 End: 12-09-[address] NONE LISTED REQUEST Facility: Start: 12-08-2022 End: 12-08-2022 ambulatory Ofelia Hester Other [facility] Other Start: 12-08-2022 Encounter by ruben Gilbert cassidy [facility] Start: 10-22-2022 End: 10-22-2022 ambulatory Lilly Luke Other [facility] Other Start: 10-22-2022 Telephone encounter Lilly Luke [facility] Start: 10-16-2022 End: 10-16-2022 ambulatory SHIRLEY Darwin LaraBlinkbuggy Work Phone: [facility] Work Phone: Start: 10-16-2022 End: 10-16-2022 Patient encounter procedure SHIRLEY Jones Work Phone: [facility] [place] Work Phone: Start: 10-15-2022 End: 10-15-2022 ambulatory Ofeliaher Couchler Other [facility] Other Start: 10-15-2022 Telephone encounter [facility] Start: 10-05-2022 Registered Recurring SHIRLEY Larashubuta Work Phone: [facility] Work Phone: Start: 10-05-2022 ([facility] Weight Management f/u [facility] Start: 10-05-2022 End: 10-05-2022 ambulatory Ofeliaher Couchler Other [facility] Other Start: 09-28-2022 ambulatory Ruby Whittington MD Work Phone: Endocrinology Comment on above: Synthroid Start: 09-02-2022 ([facility]) Weight Management f/u [facility] Start: 09-02-2022 End: 09-02-2022 ambulatory Ofelia ler Other [facility] Other Start: 08-25-2022 ([facility] WMNI) WMN Init ial Provider Lilly Luke [facility] Start: 08-25-2022 End: 08-25-2022 ambulatory Lilly Luke Other [facility] Other Start: 07-31-2022 ([facility]) Weight Management f/u [facility] Start: 07-31-2022 End: 07-31-2022 ambulatory Ofelia Missler Other [facility] Other Start: 07-20-2022 End: 07-20-2022 ambulatory Lilly Blackmont Other [facility] Other Start: 07-20-2022 Telephone encounter Lilly Eubanks [facility] Start: 07-14-2022 End: 07-14-2022 Patient encounter procedure Ruby Whittington MD Work Phone: Endocrinology Comment on above: 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); Class 2 obesity Start: 07-08-2022 End: 07-08-2022 ambulatory Ofelia Hester Other [facility] Other Start: 07-08-2022 Telephone encounter Ofelia [facility] Start: 06-17-2022 (FCCCWMNF/U) Weight Management f/u [facility] Start: 06-17-2022 End: 06-17-2022 ambulatory Ofelia Hester Other [facility] Other Start: 06-04-2022 End: 06-04-2022 ambulatory Sima Ross Other [facility] Other Start: 06-04-2022 Office outpatient vi sit 15 minutes Sima Ross [facility] Start: 05-27-2022 End: 05-27-2022 ambulatory Lilly Luke Other [facility] Other Start: 05-27-2022 IBT FOR OBESITY GROU P 2-10 30M Lilly Luke [facility] Start: 05-25-2022 End: 05-25-2022 ambulatory Darwin Jones Other [facility] Other Start: 05-25-2022 Telephone encounter Staci murphy MD Work Phone: Endocrinology Comment on above: Appointment (LVM for patient that appt on 05/[address] George has been rescheduled to 07/08 [address] [facility] with Dr. Robertson. sending mail reminder as well. ) Start: 05-19-2022 End: 05-19-2022 ambulatory Ofelia Hester Other [facility] Other Start: 05-19-2022 Telephone encounter Ofelia [facility] Start: 05-18-2022 End: 05-18-2022 ambulatory Ofelia Hester Other [facility] Other Start: 05-18-2022 Nutrition therapy Ofelia Hester [facility] Start: 04-21-2022 End: 04-21-2022 ambulatory Darwin Easterwood Other [facility] Other Start: 04-21-2022 Telephone encounter Darwin Easterwood [facility] Start: 04-17-2022 End: 04-17-2022 ambulatory Darwin Easterwood Other [facility] Other Start: 04-17-2022 Office outpatient vi sit 25 minutes Darwin Easterwood [facility] Start: 04-15-2022 End: 04-15-2022 ambulatory Darwin Easterwood Other [facility] Other Start: 04-15-2022 Telephone encounter Darwin Easterwood [facility] Start: 04-14-2022 End: 04-14-2022 Patient encounter procedure PHYSICIAN [facility] [place] Start: 04-10-2022 End: 04-10-2022 ambulatory Lilly Luke Other [facility] Other Start: 04-10-2022 Telephone encounter Lilly Luke [facility] Start: 04-06-2022 End: 04-06-2022 Patient encounter procedure PHYSICIAN NO [facility] [place] Start: 02-24-2022 End: 02-24-2022 ambulatory Darwin Jones Other [facility] Other Start: 02-24-2022 [facility] Start: 02-18-2022 End: 02-18-2022 Emergency department patient visit Fazal Corrales [facility] Start: 02-18-2022 End: 02-18-2022 ambulatory Darwin Jones Other [facility] Other Start: 02-18-2022 Office outpatient vi sit 25 minutes [facility] Start: 02-18-2022 Telephone encounter Darwin [facility]Greater [facility] Start: 02-13-2022 End: 02-13-2022 Patient encounter procedure PHYSICIAN NO [facility] [place] Start: 02-11-2022 End: 02-11-2022 ambulatory Darwin Jones Other [facility] Other Start: 02-11-2022 Office outpatient ne w 45 minutes Darwin [facility]Greater [facility] Start: 02-10-2022 End: 02-10-2022 Departed Referred PHYSICIAN [facility]-Employee Benefit Screening Start: 09-04-2021 Chart Update Unknown Unknown [facility] 250 DO Work Phone: Start: 09-03-2021 Office outpatient ne w 45 minutes Unknown Unknown [facility] 600 DO Work Phone: Procedures Date Procedure Procedure Detail Performing Clinician Start: 12-13-2024 Urnls dip stick/tabl et rgnt non-auto w/o micrscp Leah Mata COUN[employer]INTER APPRENTICE Work Phone: Start: 10-26-2024 Urnls dip stick/tabl et rgnt [...] Start: 06-21-2024 H/O: section History of Hayden Coelho MD Work Phone: Start: 06-12-2024 Urnls dip [...] [Identifier] in Cervix by Cyto stain Hayden Coelho MD Work Phone: Start: 04-13-2024 Blood count complete automated Not In System Ref Prov Start: 04-13-2024 Syphilis test non-treponemal antibody qual Not In System Ref Prov Start: 04-13-2024 [facility] BOX TEST SENT OUT Doris small Seamus DO Work Phone: Start: 04-08-2024 Drug scrn 1+ class nonchromo Not In System Ref Prov Start: 04-07-2024 Urnls dip stick/tabl et rgnt non-auto w/o micrscp Brain Way DO Work Phone: Start: 02-13-2022 US scan of thyroid PHYS ICIAN NO FAMILY section Unknown Unk nown section Fazal Bush er H/O: section S/P sindi an section Mya Finch PA Work Phone: NEGATED: Highlighted row has not occurred! Total colonoscopy Unknown Unknown Plan of Treatment Date Care Activity Detail Author Start: 04-20-2027 Screening for malignant neoplasm of cervix Pap Smear [facility] Start: 03-23-2026 DTaP,Tdap and Td Vaccines (7 - Td or Tdap) DTaP,Tdap and Td Vaccines (7 - Td or Tdap) [facility] Start: 03-23-2026 Urine microalbumin profile [facility] Start: 2025 Tobacco Screening Tobacco Screening [facility] Start: 05-28-2025 End: 05-28-2025 Patient encounter procedure 05/28/2025 9:20 AM EDT Office Visit [facility] [address] [place] [address], DO [address] [place] [address] [facility] Start: 05-11-2025 [facility] Start: 04-16-2025 Influenza vaccination Influenza Vaccine (Season Ended) [facility] Start: 12-13-2024 End: 12-13-2024 ambulatory 12/13/2024 9:30 AM EDT Visit [facility] [address] [place] [place] [address] Mya Finch PA [address] [place], [place] [id number] [facility] Start: 11-15-2024 End: 11-15-2024 Patient encounter procedure 11/15/2024 10:20 AM EDT Office Visit [facility] [address] [place] [id number] Mya Finch, PA [address] [place] [address] Arrived [facility] Comment on above: Arrived Start: 10-26-2024 End: 10-26-2024 Patient encounter procedure 10/26/2024 11:10 AM EDT Routine [facility] [address] [place] [phone] Mya Finch, PA [address] [place] [address] [facility] Start: 10-26-2024 End: 10-26-2024 Patient encounter procedure 10/26/2024 8:50 AM EDT Routine [facility] [address] [place] [address] Mya Finch, PA [address] [place] [address] [facility] Start: 10-18-2024 End: 10-18-2024 Patient encounter procedure 10/18/2024 9:50 AM EST Routine [facility] [address] [place] [phone] Mya Finch, PA [address] [facility] [place] [address] [facility] Start: 10-10-2024 End: 10-10-2025 [...] [facility] [address] [place] [place] [address] Mya Finch PA [address] [facility] [address] [place], [place] [id number] [facility] Start: 09-19-2024 End: 09-19-2024 [...] 08/31/2024 (Approximate), Expi res: 07/31/2025 Start: 08-25-2024 [facility] Start: 08-23-2024 End: 08-23-2024 Patient encounter procedure 08/23/2024 11:00 AM EST Routine [facility] [address] [place] [place] [address] DO [address] [place] [address] Arrived [facility] Comment on above: Arrived Start: 08-02-2024 End: 08-02-2024 Telemedicine consultation with patient 08/02/2024 9:00 AM EST Telemedicine [facility] [place] [address] [place] [address] Darcy Enriquez MD [address] [facility] [place] [address] [facility] [place] Start: 07-27-2024 End: 07-27-2024 Patient encounter procedure 07/27/2024 11:00 AM EST Appointment [facility] [place] [address] [facility] [address] [facility] [place] [phone] [facility] [place] Start: 07-21-2024 End: 07-21-2024 Patient encounter procedure 07/21/2024 10:00 AM EST Appointment [facility] [address] [place] [address] [facility] Start: 07-11-2024 End: 07-11-2025 [...] mellitus screening Expected: 07/11/2024 (Approximate), Expires: 07/11/2025 [facility] Comment on above: Expected: 07/11/2024 (Approximate), Expi res: 07/11/2025 Start: 07-11-2024 End: 07-11-2024 Patient encounter procedure 07/11/2024 10:10 AM EST Routine [facility] [address] [place] [phone] [address], DO [address] [facility] [address] [place] [place] [address] [facility] Start: 06-28-2024 [facility] Start: 2024 End: 2025 Echo complete W/O contrast Echo complete W/O contrast Echocardiography Routine 20 weeks gestation of History of pericarditis Expected: 2024, Expires: 2025 [facility] Work Phone: Comment on above: Expected: 2024, Expires: Start: 2024 End: 2024 Patient encounter procedure [facility] [place] Start: 06-12-2024 End: 10-13-2024 Alpha fetoprotein, maternal [...] anatomic survey Expected: 06/12/2024 (Approximate), Expires: 06/12/2025 [facility] Work Phone: Comment on above: Expected: 06/12/2024 (Approximate), Expi res: 06/12/2025 Start: 06-12-2024 End: 06-12-2024 Patient encounter procedure 06/12/2024 10:00 AM EDT Routine [facility] [address] [place] [place] [phone] [address], DO [address] [place] [address] Arrived [facility] Comment on above: Arrived Start: 06-07-2024 End: 06-07-2024 Patient encounter procedure 06/07/2024 10:50 AM EDT Routine [facility] [address] [facility] [facility] [facility] [facility] [place] [phone] [address], DO [address] [place] [address] [facility] Start: 05-10-2024 End: 05-10-2024 Patient encounter procedure [facility] Comment on above: Arrived Start: 04-20-2024 End: 04-20-2024 Patient encounter procedure [facility] Comment on above: Arrived Start: 04-16-2024 COVID-19 Vaccine ( season) COVID-19 Vaccine ( season) [facility] Start: 04-16-2024 Influenza vaccination [facility] Start: 04-07-2024 End: 04-07-2025 ABO/Rh ABO/Rh Lab Routine Missed menses Expected: 04/07/2024 (Approximate), Expires: 04/07/2025 [facility] Comment on above: Expected: 04/07/2024 (Approximate), Expi res: 04/07/2025 Start: 04-07-2024 End: 04-07-2025 Blood type and Indirect antibody screen panel - Blood Type and screen Lab Routine Missed menses Expected: 04/07/2024 (Approximate), Expires: 04/07/2025 [facility] Work Phone: Comment on above: Expected: 04/07/2024 (Approximate), Expi res: 04/07/2025 Start: 08-16-2023 Behavioral Health Screening Behavioral Health Screening [facility] Start: 05-06-2023 US scan of thyroid US thyroid [facility] Start: 04-16-2023 Covid-19 Vaccine ( season) Covid-19 Vaccine ( season) [facility] Start: 04-16-2023 Influenza vaccination Influenza Vaccine (#1) [facility] Start: 04-08-2023 [facility] Start: 08-16-2022 DEPRESSION ASSESSMENT DEPRESSION ASSESSMENT [facility] Start: 04-16-2022 Influenza vaccination INFLUENZA (#1) [facility] Start: 08-16-2021 DEPRESSION ASSESSMENT DEPRESSION ASSESSMENT [facility] Start: 01-10-2021 COVID-19 VACCINE (3 - Booster) COVID-19 VACCINE (3 - Booster) [facility] Start: 2017 PAP TESTING PAP TESTING [facility] Start: 2017 Screening for malignant neoplasm of cervix [facility] Start: 2015 DTaP,Tdap and Td Vaccines (1 - Tdap) DTaP,Tdap and Td Vaccines (1 - Tdap) [facility] Start: 2015 Urine microalbumin profile DTAP,TDAP,TD (1 - Tdap) [facility] Start: 2014 Adult BMI Screening Adult BMI Screening [facility] Start: 2014 ANNUAL PCP TEAM CHRONIC DISEASE VISIT ANNUAL PCP TEAM CHRONIC DISEASE VISIT [facility] Start: 2014 HEPATITIS C SCREENING HEPATITIS C SCREENING [facility] Start: 2014 Hepatitis C screening Hepatitis C Screening [facility] Start: 2014 HIV SCREENING HIV SCREENING [facility] Start: 2014 HIV screening HIV Screening [facility] Start: 2010 PEDS TO ADULT TRANSITION ANNUAL ASSESSMENT PEDS TO ADULT TRANSITION ANNUAL ASSESSMENT [facility] Start: 2008 Depression Screening Depression Screening [facility] Start: 2008 PEDS TO ADULT TRANSITION INITIAL DISCUSSION PEDS TO ADULT TRANSITION INITIAL DISCUSSION [facility] Start: 2008 Tobacco Screening Tobacco Screening [facility] Start: 2007 HPV VACCINE (1 - 2-dose series) HPV VACCINE (1 - 2-dose series) [facility] Start: 2005 HPV Vaccine (1 - 2-dose series) HPV Vaccine (1 - 2-dose series) [facility] Start: 1996 COVID-19 VACCINE (#1) COVID-19 VACCINE (#1) [facility] Start: 1996 HEPATITIS B (1 of 3 - 3-dose series) HEPATITIS B (1 of 3 - 3-dose series) [facility] Bacteria identified in Urine by Culture Urine culture Microbiology Routine Missed menses Ordered: 04/07/2024 [facility] Comment on above: Ordered: 04/07/2024 CBC W Auto Different ial panel - Blood CBC and differential Lab Routine Missed menses Ordered: 04/07/2024 [facility] Comment on above: Ordered: 04/07/2024 CHLAMYDIA TRACHOMATI S (GENITO/STI) CHLAMYDIA TRACHOMATIS (GENITO/STI) Lab Routine First trimester Screen for STD (sexually transmitted disease) Vaginal discharge Ordered: 04/20/2024 [facility] Comment on above: Ordered: 04/20/2024 Cytology Cervical or vaginal smear or scraping study Pap Smear Pathology and Cytology Routine Well woman exam with routine gynecological exam Ordered: 04/20/2024 [facility] Work Phone: Comment on above: Ordered: 04/20/2024 Hemoglobin A1c/Hemoglobin.total in Blood Hemoglobin A1c Lab Routine Missed menses Ordered: 04/07/2024 [facility] Comment on above: Ordered: 04/07/2024 Hepatitis B virus surface Ag [Presence] in Serum or Plasma by Immunoassay Hepatitis B surface antigen Lab Routine Missed menses Ordered: 04/07/2024 [facility] Comment on above: Ordered: 04/07/2024 Hepatitis C virus Ab [Presence] in Serum or Plasma by Immunoassay Hepatitis C antibody Lab Routine Missed menses Ordered: 04/07/2024 [facility] Comment on above: Ordered: 04/07/2024 HIV-1/HIV-2 antigen/antibody combination immunoassay HIV-1 and HIV-2 antibodies Lab Routine Missed menses Ordered: 04/07/2024 [facility] Comment on above: Ordered: 04/07/2024 Neisseria gonorrhoea e DNA [Presence] in Unspecified specimen by LAUREN with probe detection Neisseria gonorrhea DNA probe, direct Lab Routine First trimester Screen for STD (sexually transmitted disease) Vaginal discharge Ordered: 04/20/2024 [facility] Comment on above: Ordered: 04/20/2024 Patient referral [facility] Work Phone: Progesterone [Mass/volume] in Serum or Plasma [facility] Progesterone [Mass/volume] in Serum or Plasma [facility] Progesterone [Mass/volume] in Serum or Plasma [facility] Progesterone [Mass/volume] in Serum or Plasma [facility] Progesterone [Mass/volume] in Serum or Plasma [facility] Reagin Ab [Presence] in Serum by RPR RPR Lab Routine Missed menses Ordered: 04/07/2024 [facility] Comment on above: Ordered: 04/07/2024 Rubella antibody, IgG Rubella an tibody, IgG Lab Routine Missed menses Ordered: 04/07/2024 [facility] Comment on above: Ordered: 04/07/2024 SURESWAB(R) ADVANCED VAGINITIS PLUS, TMA SURESWAB(R) ADVANCED VAGINITIS PLUS, TMA Pathology and Cytology Routine First trimester Screen for STD (sexually transmitted disease) Vaginal discharge Ordered: 04/20/2024 [facility] Comment on above: Ordered: 04/20/2024 T3 reverse measurement [facility] Thyroglobulin Ab [Units/volume] in Serum or Plasma [facility] Thyroperoxidase Ab [Units/volume] in Serum or Plasma [facility] Thyrotropin [Units/volume] in Serum or Plasma TSH Lab Routine Missed menses Ordered: 04/07/2024 [facility] Comment on above: Ordered: 04/07/2024 US Heart Transthoracic [facility] End: 07-07-2024 XR MODIFIED BARIUM SWALLOW W SPEECH THERAPY XR MODIFIED BARIUM SWALLOW W SPEECH THERAPY Radiology Routine Dysphagia, unspecified type 1 Occurrences starting 06/08/2023 until 07/07/2024 [facility] Work Phone: Comment on above: 1 Occurrences starting 06/08/2023 until 07/07/2024 [facility] Work Phone: [facility] Immunizations Immunization Date Immunization Notes Care Provider Vaishali Ansari06-2023 influenza virus vaccine, unspecified formulation Tyrone Rock [facility] 05-21-2023 influenza, injectabl e, 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, 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 free [employer] Darwin Easterwood Work Phone: [facility] 05-21-2023 influenza, injectabl e, 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, contains 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 Darwin Easterwood Other [facility] Other 06-15-2022 influenza, injectabl e, 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, 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 free [employer] P[employer] Darwin Easterwood Work Phone: [facility] 06-15-2022 influenza, injectabl e, 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, contains 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 Darwin Easterwood Other [facility] Work Phone: 06-15-2022 influenza virus vaccine, unspecified formulation Francy Holloway PA-C Work Phone: [facility] 06-15-2021 influenza nasal, unspecified formulation Ruby Whittington MD Work Phone: [facility] Work Phone: 06-15-2021 influenza virus vaccine, unspecified formulation Tyrone Rock [facility] 06-15-2021 influenza, injectabl e, 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, 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 free [employer] Darwin Easterwood Work Phone: [facility] 06-15-2021 influenza, injectabl e, 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, contains 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 Darwin Easterwood Other [facility] Work Phone: 05-15-2021 influenza nasal, unspecified formulation Ruby Whittington MD Work Phone: [facility] Work Phone: 05-15-2021 influenza virus vaccine, unspecified formulation Tyrone Rock [facility] 05-15-2021 influenza, high dose seasonal, 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-free Unknown Unknown [facility] Work Phone: 11-15-2020 Pfizer-BioNTech COVID-19 Vacc 30 MCG/0.3ML Intramuscular Suspension Unknown Unknown [facility] 11-12-2020 COVID-19 vaccine, unknown product (NON-US) Ruby Whittington MD Work Phone: [facility] Work Phone: 10-24-2020 Pfizer-BioNTech COVID-19 Vacc 30 MCG/0.3ML Intramuscular Suspension Unknown Unknown [facility] 03-23-2016 tetanus toxoid, reduced diphtheria toxoid, and acellular pertussis vaccine, adsorbed Unknown Unknown [facility] Work Phone: 03-23-2016 varicella virus vaccine Unknown Unknown [facility] Work Phone: 03-01-2002 diphtheria, tetanus toxoids and acellular pertussis vaccine, unspecified formulation Unknown Unknown [facility] Work Phone: 03-01-2002 DTaP, unspecified formulation Tyrone Rokc [facility] 03-01-2002 measles, mumps and rubella virus vaccine Unknown Unknown [facility] Work Phone: 03-01-2002 poliovirus vaccine, inactivated Unknown Unknown [facility] Work Phone: 03-01-2002 poliovirus vaccine, unspecified formulation Tyrone Rock [facility] 04-20-2001 hepatitis B vaccine, pediatric or pediatric/adolescent dosage Unknown Unknown [facility] Work Phone: 01-03-1998 diphtheria, tetanus toxoids and acellular pertussis vaccine, unspecified formulation Unknown Unknown [facility] Work Phone: 01-03-1998 DTaP, unspecified formulation Tyrone Rock [facility] 09-18-1997 measles, mumps and rubella virus vaccine Unknown Unknown [facility] Work Phone: 09-18-1997 varicella virus vaccine Unknown Unknown [facility] Work Phone: 03-30-1997 hepatitis B vaccine, pediatric or pediatric/adolescent dosage Unknown Unknown [facility] Work Phone: 1996 diphtheria, tetanus toxoids and acellular pertussis vaccine, unspecified formulation Unknown Unknown [facility] Work Phone: 1996 DTaP, unspecified formulation [employer] [facility] 1996 trivalent poliovirus vaccine, live, oral Unknown Unknown [facility] Work Phone: 1996 diphtheria, tetanus toxoids and acellular pertussis vaccine, unspecified formulation Unknown [facility] Work Phone: 1996 DTaP, unspecified formulation [employer] [facility] 1996 haemophilus influenz ae type b vaccine, conjugate unspecified formulation Unknown [facility] Work Phone: 1996 Hib, unspecified formulation [employer] [facility] 1996 trivalent poliovirus vaccine, live, oral Unknown Unknown [facility] Work Phone: 1996 diphtheria, tetanus toxoids and acellular pertussis vaccine, unspecified formulation Unknown Unknown [facility] Work Phone: 1996 DTaP, unspecified formulation [employer] [facility] 1996 diphtheria, tetanus toxoids and acellular pertussis vaccine, unspecified formulation Unknown [facility] Work Phone: 1996 DTaP, unspecified formulation [employer] [facility] 1996 haemophilus influenz ae type b vaccine, conjugate unspecified formulation Unknown [facility] Work Phone: 1996 Hib, unspecified formulation Tyrone Rock [facility] 1996 measles, mumps and rubella virus vaccine Unknown Unknown [facility] Work Phone: 1996 varicella virus vaccine Unknown Unknown [facility] Work Phone: 1996 diphtheria, tetanus toxoids and acellular pertussis vaccine, unspecified formulation Unknown [facility] Work Phone: 1996 DTaP, unspecified formulation Tyrone Rock [facility] 1996 haemophilus influenz ae type b vaccine, conjugate unspecified formulation Unknown [facility] Work Phone: 1996 hepatitis B vaccine, pediatric or pediatric/adolescent dosage Unknown Unknown [facility] Work Phone: 1996 Hib, unspecified formulation Tyrone Rock [facility] 1996 trivalent poliovirus vaccine, live, oral Unknown Unknown [facility] Work Phone: 1996 hepatitis B vaccine, pediatric or pediatric/adolescent dosage Unknown Unknown [facility] Work Phone: Payers Date Payer Category Payer Self-pay [id number] 2024 Self-pay [id number] 2022 Private Health Insurance [id number] 2021 Unknown 2019 Commercial [employer]aged [employer] - O [id number] 02.315 1996 Unknown [id number] 2.16.84 0.1.732729.3.579.2.593 1996 Unknown [id number] 2.16.8 40.1.745913.3.579.2.727 1996 Unknown [id number] 2.16.8 40.1.862157.3.579.2.727 1996 Unknown [id number] 2.16.8 40.1.066231.3.579.2.727 1996 Unknown [id number] 2.16.840.1.926018.3.579.2.1286 1996 Unknown [id number] 2.16.840.1.111596.3.579.2.1286 1996 Unknown [id number] 2.16.840.1.285329.3.579.2.1286 1996 Unknown [id number] 2.16.840.1.374214.3.579.2.1286 1996 Unknown [id number] 2.16.8 40.1.488628.3.579.2.727 1996 Unknown [id number] 2.16.8 40.1.880363.3.579.2.727 1996 Unknown [id number] 2.16.8 40.1.625788.3.579.2.727 1996 Unknown [id number] 2.16.8 40.1.896550.3.579.2.727 1996 Unknown [id number] 2.16.8 40.1.306509.3.579.2.72 1996 Unknown [id number] 2.16.8 40.1.118984.3.579.2.727 1996 Unknown [id number] 2.16.8 40.1.296565.3.579.2.727 1996 Unknown [id number] 2.16.8 40.1.979832.3.579.2.727 1996 Unknown [id number] 2.16.8 40.1.886058.3.579.2.727 1996 Unknown [id number] 2.16.8 40.1.804608.3.579.2.727 1996 Unknown [id number] 2.16.84 0.1.782853.3.579.2.1258 1996 Unknown [id number] 2.16.84 0.1.474584.3.579.2.1258 1996 Unknown [id number] 2.16.84 0.1.479977.3.579.2.1258 1996 Unknown [id number] 2.16.84 0.1.537973.3.579.2.1258 1996 Unknown [id number] 2.16.84 0.1.093143.3.579.2.1258 1996 Unknown [id number] 2.16.84 0.1.388137.3.579.2.1258 1996 Unknown [id number] 2.16.84 0.1.814662.3.579.2.1258 1996 Unknown [id number] 2.16.84 0.1.234280.3.579.2.1258 1996 Unknown [id number] 2.16.84 0.1.088945.3.579.2.1258 1996 Unknown [id number] 2.16.84 0.1.569589.3.579.2.1258 1996 Unknown [id number] 2.16.84 0.1.290834.3.579.2.1258 1996 Unknown [id number] 2.16.84 0.1.559378.3.579.2.1258 1996 Unknown [id number] 2.16.84 0.1.017407.3.579.2.1259 1996 Unknown [id number] 2.16.84 0.1.328653.3.579.2.1259 1996 Unknown [id number] 2.16.84 0.1.826818.3.579.2.1259 1959 Unknown [id number] Unknown [id number] Unknown [id number] 2.16.8 40.1.946755.3.579.2.531 Unknown [id number] 2.16.8 40.1.741288.3.579.2.531 Unknown [id number] 2.16.8 40.1.644195.3.579.2.531 Unknown [id number] 2.16.8 40.1.439782.3.579.2.531 Unknown [id number] 2.16.8 40.1.321533.3.579.2.531 Unknown [id number] 2.16.8 40.1.957421.3.579.2.531 Unknown [id number] 2.16.8 40.1.557023.3.579.2.531 Unknown [id number] 2.16.8 40.1.261463.3.579.2.531 Unknown [id number] 2.16.8 40.1.870973.3.579.2.531 Unknown [id number] 2.16.8 40.1.214781.3.579.2.531 Unknown [id number] 2.16.8 40.1.557858.3.579.2.531 Social History Date Type Detail Facility Start: 07-14-2022 End: 11-08-2024 No alcohol use No alcohol use [place] [address] DO Work Phone: Start: 12-29-2020 End: 01-22-2025 Tobacco smoking status NHIS Never smoked tobacco (finding) [facility] Start: 1995 Sex Assigned At Female [facility] Start: 07-14-2022 End: 11-08-2024 Sex Assigned At [employer] Other Tobacco smoking status Never [facility] Tobacco smoking status NHIS Tobacco smoking consumption unknown [facility] Start: 1995 Sex Assigned At Not on file [facility] Start: 04-17-2022 End: 07-14-2022 Exposure to SARS-CoV-2 (event) Not sure [facility] Start: 07-14-2022 End: 2024 Tobacco use and exposure Smokeless tobacco non-user [facility] Start: 07-14-2022 End: 12-13-2024 Alcohol intake Lifetime non-drinker (finding) [facility] Start: 07-13-2022 Gender identity Identifies as female gender (finding) [facility] Start: 02-16-2024 [facility] Start: 06-23-2024 End: 01-22-2025 Sex Female (finding) [facility] Tobacco [facility] Comment on above: Denies Tobacco smoking status No Smoking Status Entered [facility] NEGATED: Highlighted rowStart: NINF History of tobacco use Passive smoker [facility] NEGATED: Highlighted row [facility] NEGATED: Highlighted row N [facility] Medical Equipment Procedure Code Equipment Code Equipment Origin al Text Equipment Identifier Dates Pen Elma [id number] X 5 MM Start: 05-18-2022 Goals Date Patient Goal Desired Activity /State Personal health goal Functional Status Date Assessment Result Facility 10-14-2024 Functional Status N/A [facility] 09-06-2024 Functional Status N/A [facility] 09-05-2024 Functional Status N/A [facility] 09-05-2024 Functional Status N/A [facility] 03-18-2024 Functional Status N/A [facility] 09-29-2023 Functional Status N/A [facility] 03-22-2023 Functional Status N/A [facility] 02-18-2022 Functional Status N/A [facility] Clinical Notes 01-14-2022 to 05-18-2025 Note Date & Type Note Facility 05-18-2025 Note HNO ID: [id number] Author: STACI ROBERTSON MD Service: ? Author Type: Physician Type: Progress Notes Filed: 05/18/2025 09:27 Note Text: I have communicated my name and active licensure. The patient's identity and physical location were verified at the time of this visit. Either the patient or their legal home office representative has been informed of the risks and benefits of -- and alternatives to -- treatment through a remote evaluation and consents to proceed with the evaluation remotely. Visit was conducted via [employer] Zoom Patient Location: Patient Home or Place of Residence Tawnya Shay is a 29 year old female who is presenting today May 18, 2025 for a Thyroid problem. Reason for visit: Hypothyroidism Previous laboratory results: TSH (mIU/L) Date Value 07/14/2022 2.480 Free T4 (ng/dL) Date Value 07/14/2022 1.3 Tawnya is a 29-year-old female presenting for evaluation of hypothyroidism. Used to be followed by Dr. Whittington - Last visit in November 2023. Tawnya reports a recent TSH level of 54 mIU/L, measured on the at [facility] in [place]. She has a history of hypothyroidism and is currently on levothyroxine 75 mcg daily. She reports feeling exhausted and notes a weight of 250 lbs. She denies any new medications and is 6 months (third child). She is not . Uses Adipex for weight sine February 2025. ROS: Energy is not good. Sleeps well. Weight decreased 10 lbs on adipex. Now at about 250 lbs. No difficulties swallowing or breathing. No pain or tenderness from thyroid bed. No heart palpitations. No temperature intolerance. No excessive sweating No constipation or diarrhea. She is 6 months . Had 2 periods since. Not breast feeding. No problems with skin, hair or nails. No muscle weaknes. No muscle cramping. No tremors. Memory is good. No problems focusing. PE: Young CC female. No acute distress, alert and orineted and in appropriate mood. HEENT: Odalys, sclera anicteric, conjunctiva non inflamed, oral mucosa moist, no lesions. No lid lag. No stare. No exophtalmos. NECK: NO visible goiter. EXT: No edema or deformities. SKIN: no rash or lesions. No achantosis nigricans. NEURO: No focal signs. No tremors. Assessment and Plan:1. Acquired hypothyroidism (E03.9) TSH markedly elevated at 54 on current levothyroxine 75 mcg daily; patient reports persistent fatigue. - Increase levothyroxine to 150 mcg daily; instructed to take two 75 mcg tablets daily until current supply is exhausted, then transition to 150 mcg tablets. - Repeat TSH in 2 months; instructed to send results via [employer] for dose adjustment. - Follow-up in 6 months; patient instructed to schedule via [facility]. - Provided education on rationale for dose increase and importance of lab monitoring. Staci Robertson MD Answers submitted by the patient for this visit: Endocrine Review of Systems (Submitted on 05/14/2025) Fatigue: Yes Night sweats: No Recent unintentional weight change: No Skin Color Changes: No Post-Nasal Drip: Yes Thyroid Pain (lower neck): No Trouble Swallowing: No Vision Disturbance: No Chest pain: No Leg Swelling: No Blood Clots?: No Leg Pain while walking?: No Difficulty Breathing?: No Heartburn: Yes Nausea: No Vomiting: No Diarrhea: No Constipation: No Abdominal pain: No Bone Pain?: No Muscle aches: No Muscle weakness: No Joint pain or stiffness: No Headaches: Yes Dizziness: No Numbness?: No Urgency to Urinate?: No Increased Urination: No Slow or Small Urine Stream?: No Are your menstrual cycles regular?: No Are your menstrual cycles irregular?: Yes Have your menstrual cycles stopped?: No Flushing: No Hot Flashes?: No Increased Thirst: No Change in Body Hair?: No Cold Intolerance: No Heat Intolerance: No [facility] 03-05-2025 Evaluation note Diagnosis Onset Date Resolution Daytime sleepiness acute February 142024 8:26am GERD (gastroesophageal reflux disease) acute March 05, 2025 8:26am 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, 2025 8:26am Obesity, Class III, BMI 40-49.9 (morbid obesity) acute March 05, 2025 8:26am Daytime sleepiness acute 2024 9:39am GERD (gastroesophageal reflux disease) acute April 25, 2025 9:39am Tiffani's disease acute 2024 9:39am Obesity, Class III, BMI 40-49.9 (morbid obesity) acute April 25, 2025 9:39am [facility] Work Phone: 1(758) 747-796706-09-2025 Evaluation note* Diagnosis Onset Date Resolution Status Admit Date Daytime sleepiness acute January 222024 7:21am GERD (gastroesophageal reflu x disease) acute January 22, 2025 7 :21am Tiffain's disease acute January 22, 2025 7:21am Obesity, Class III, BMI 40-4 9.9 (morbid obesity) acute January 22, 2025 7:21am Daytime sleepiness acute February 142024 8:26am GERD (gastroesophageal reflu x disease) acute March 05, 2025 8:26am 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, 2025 8:26am Obesity, Class III, BMI 40-4 9.9 (morbid obesity) acute March 05, 2025 8:26am [facility] Work Phone: 1(571) 818-390604-30-2025 History of Present illness Narrative* Laeh Mata NP - 12/13/2024 9:30 AM EDT Reason for Appointment: Patient ID: Tawnya Herring is a 29 y.o. female who presents for Follow-up Patient presents today for Post Follow Up appointment. MEDICATIONS Current Outpatient Medications Medication Instructions citalopram (CELEXA) 40 mg, Oral, Daily levothyroxine (SYNTHROID, LEVOXYL) 100 mcg, Oral, Daily norethindrone (MICRONOR) 0.35 mg, Oral, Daily, Take 1 tablet by mouth daily MV-Min-Fe Fum-FA-DHA ( 1 PO) 1 each, Daily ALLERGIES No Known Allergies PROBLEMS Active Ambulatory Problems Diagnosis Date Noted No Active Ambulatory Problems Resolved Ambulatory Problems Diagnosis Date Noted 22 weeks gestation of 07/11/2024 Second trimester 07/11/2024 Nausea and vomiting during 07/11/2024 Past Medical History: Diagnosis Date Anxiety Blood [...] Procedure Laterality Date SECTION, LOW TRANSVERSE 2020 SECTION, LOW TRANSVERSE 10/31/2024 CYSTOSCOPY REVIEW OF SYSTEMS Review of Systems: [...] nursing note reviewed. Exam conducted with a technology lead present. Vitals: Estimated body mass index is 38.06 kg/m as calculated from the following: Height as of 08/25/23: 5' 7 . Weight as of this encounter: 243 lb. BP: 110/76 No LMP recorded (lmp unknown). ASSESSMENT & PLAN ICD-10-CM 1. 6 weeks follow-up Z39.2 POCT urinalysis dipstick manually resulted POCT , urine manually resulted norethindrone (Micronor) 0.35 MG tablet Post Follow Up: Patient is doing well but has no complaints Patient presents today for 6 week visit. Patient is s/p delivery. Patient states no complaints of depression and denies suicidal and homicidal ideations. She reports that Celexa at 40 mg has helped with her symptoms and reports no baby blues and no anxiety or depressive symptoms at this time. All options were discussed with the patient regarding control and patient desires oral contraception she is and we will place her on progesterone only contraception at this time. She will return to follow up for her yearly exam or with any further concerns. Follow Up: Patient is to return for annual unless needed otherwise. Documented by Leah Mata NP on behalf of: Leah Mata NP documented in this encounterCarondelet [id number] History of Present illness Narrative* HIPOLITO Shore - 11/15/2024 10:20 AM EDT Reason for Appointment: Patient ID: Tawnya Shay is a 29 y.o. female who presents for Post-op Visit (Pt present today piedad incision check. Pt had a c/s on 10/31/2024.) Patient presents today for 1 Week Post Op Follow Up appointment. MEDICATIONS Current Outpatient Medications Medication Instructions cephalexin (KEFLEX) 500 mg, Oral, 3 times daily citalopram (CELEXA) 40 mg, Oral, Daily levothyroxine (SYNTHROID, LEVOXYL) 100 mcg, Oral, Daily MV-Min-Fe Fum-FA-DHA ( 1 PO) 1 each, Daily Zurzuvae 50 mg, Oral, Daily ALLERGIES No Known Allergies PROBLEMS Active Ambulatory Problems Diagnosis Date Noted No Active Ambulatory Problems Resolved Ambulatory Problems Diagnosis Date Noted 22 weeks gestation of 07/11/2024 Second trimester 07/11/2024 Nausea and vomiting during 07/11/2024 Past Medical History: Diagnosis Date Anxiety Blood type, Rh positive H/O calculus of kidney during Tiffani's disease ([facility]) 02/2022 History of Obesity (BMI 30-39.9) Pericarditis [...] Procedure Laterality Date SECTION, LOW TRANSVERSE 2020 SECTION, LOW TRANSVERSE 10/31/2024 CYSTOSCOPY REVIEW OF SYSTEMS Review of Systems: Review of Systems Constitutional: Negative. HENT: Negative. Eyes: Negative. Respiratory: Negative. Cardiovascular: Negative. Gastrointestinal: Negative. Genitourinary: Negative. Musculoskeletal: Negative. Skin: Negative. Reports tenderness to incisional site and drainage. Neurological: Negative. All other systems reviewed and [...] Skin: General: Skin is warm and dry. Comments: 1 inch Distal to the incisional site there is a 1 cm area of mild erythema without drainage or discharge. No current drainage or discharge. The area is cleansed with hibiclens and silver nitrate applied. Psychiatric: Mood and Affect: Mood normal. Behavior: Behavior normal. Vitals and nursing note reviewed. Exam conducted with a technology lead present. Vitals: Estimated body mass index is 35.55 kg/m as calculated from the following: Height as of 1/10/24: 5' 7 . Weight as of this encounter: 227 lb. BP: 110/70 No LMP recorded (lmp unknown). ASSESSMENT & PLAN ICD-10-CM 1. S/P section Z98.891 2. Incisional irritation, initial encounter T81.89XA 3. Incisional pain L76.82 Patient with complaints of incisional pain on Wednesday of this week. She reported a small area of drainage and she was able to express discharge from the wound. The incisional site is intact but there is abraded skin with mild erythema just distal to the incisional site consistent with folliculitis or wound from steri strip. No drainage or discharge or tenderness with palpation on today's examination. Patient is afebrile and otherwise well appearing. Patient was placed on Keflex yesterday after telephone triage and is doing well with this. She is to continue Keflex and return with any worseningsymptoms or concerns. Documented by Leah Mata NP on behalf of: HIPOLITO Shore documented in this encounterCarondelet [id number] History of Present illness Narrative* HIPOLITO Shore - 10/26/2024 11:10 AM EDT Reason for Appointment: Patient ID: Tawnya Shay [...] H/O calculus of kidney during Tiffani's disease ([facility]) 02/2022 History of Obesity (BMI [...] behalf of: HIPOLITO Shore documented in this encounterCarondelet [id number] History of Present illness Narrative* HIPOLITO Shore - 10/18/2024 9:50 AM EST Reason for Appointment: Patient ID: Tawnya Shay [...] nursing note reviewed. Exam conducted with a technology lead present. Vitals: Estimated body mass index is [...] urinalysis dipstick manually resulted 3. Anxiety, generalized ([facility]) F41.1 citalopram (CeleXA) 20 MG [...] today. TSH from 09/21/24 2.52 Documented by Leah Mata NP on behalf of: HIPOLITO Shore documented in this encounterNOPike County Memorial [id number] NoteMicrobiology PROCEDURE: Strep Screen Culture [R1] SOURCE: Throat BODY SITE: COLLECTED DATE/TIME: 10/14/2024 09:25 EST RECEIVED DATE/TIME: 10/14/2024 13:15 EST START DATE/TIME: 10/14/2024 13:15 EST FREE TEXT SOURCE: Bella [address] [employer], Etta Blanco [address] [employer], Etta FINAL REPORTS Final Report [] Verified Date/Time: 10/16/2024 09:02 EST Streptococcus Group A screen negative Performing Locations R1: This test was performed at: [facility], [address] [place] [address], [address] [place] [address], MbuywuPaulding County HospitalComment on above:Performed By: #### [id number] #### [facility] [address] [place] [address] [id number] NoteMicrobiology PROCEDURE: Strep Screen Culture [R1] SOURCE: Throat BODY SITE: COLLECTED DATE/TIME: 10/14/2024 09:25 EST RECEIVED DATE/TIME: 10/14/2024 13:15 EST START DATE/TIME: 10/14/2024 13:15 EST FREE TEXT SOURCE: Lazaroer [address] [employer], [place] Bella [address] [employer], [place]ta FINAL REPORTS Final Report [] Verified Date/Time: 10/16/2024 09:02 EST Streptococcus Group A screen negative Performing Locations R1: This test was performed at: [facility], [address] [place] [address], [address]- , [place], DzfhzzPaulding County HospitalComment on above:Performed By: #### [id number] #### [facility] [address] [place] [address] [id number] Evaluation + Plan note Diagnostic Tests Pending * Strep Screen Culture 10/14/24 [facility] 03-01-2025 Hospital Discharge instructions Patient Education 10/14/2024 09:30:20 Pharyngitis, Mpqz-au-Awiy Pharyngitis Pharyngitis is a sore throat (pharynx). [...] Follow these instructions at home: Medicines Take mymp-xjj-ojkpfcr and prescription medicines only as told by [...] water are not available, use hand cnc mill and lathe operator. Do not touch your eyes, nose, or [...] away. Call your local emergency services (911 inthe [place] Do not wait to see if [...] provider. Document Revised: 10/29/2021 Document Reviewed: 10/29/2021 [employer] Patient Education 2023 [employer]. Follow Up Care 10/14/2024 08:59:06 With:DARWIN JONES CNP Address: [address] [place] [address] [place] [address]- When: Unknown [facility] 03-01-2025 NotePatient Education Infectious Disease Pharyngitis Pharyngitis is a [...] these instructions at home: Medicines ??? Take eero-obg-ziiauqk and prescription medicines only as told by [...] water are not available, use hand cnc mill and lathe operator. ??? Do not touch your eyes, nose, [...] your local emergency services (911 int [place] ??? Do not wait to see [...] provider. Document Revised: 10/29/2021 Document Reviewed: 10/29/2021 [employer] Patient Education ? 2023 [employer].[facility] 10-10-2024 History of Present illness Narrative* Aleisha Abreu LPN - 10/10/2024 10:50 AM EST Reason for Appointment: Patient ID: Tawnya Shay [...] H/O calculus of kidney during Tiffani's disease ([facility]) 02/2022 History of Obesity (BMI 30-39.9) Pericarditis HISTORY PAST MEDICAL HISTORY SOCIAL HISTORY Past Medical History: Diagnosis Date Anxiety Blood type, Rh positive H/O calculus of kidney during Tiffani's disease ([facility]) 02/2022 History of Obesity (BMI [...] nursing note reviewed. Exam conducted with a technology lead present. Vitals: Estimated body mass index is [...] of: Brain Way DO documented in this encounterCarondelet [id number] History of Present illness Narrative* HIPOLITO Shore - 10/05/2024 2:20 PM EST Reason for Appointment: Patient ID: Tawnya Shay [...] PROBLEMS Active Ambulatory Problems Diagnosis Date Noted weeks gestation of 07/11/2024 Second trimester 07/11/2024 Nausea and vomiting during 07/11/2024 Resolved Ambulatory Problems Diagnosis Date Noted No Resolved Ambulatory Problems Past Medical History: Diagnosis Date Anxiety Blood type, Rh positive H/O calculus of kidney during Tiffani's disease ([facility]) 02/2022 History of Obesity (BMI 30-39.9) Pericarditis HISTORY PAST MEDICAL HISTORY SOCIAL HISTORY Past Medical History: Diagnosis Date Anxiety Blood type, Rh positive H/O calculus of kidney during Tiffani's disease ([facility]) 02/2022 History of Obesity (BMI [...] behalf of: HIPOLITO Shore documented in this encounterCarondelet [id number] History of Present illness Narrative* Aleisha Abreu, RN ORTHO - 09/19/2024 2:00 PM EST Reason for Appointment: Patient ID: Tawnya Shay [...] H/O calculus of kidney during Tiffani's disease ([facility]) 02/2022 History of Obesity (BMI 30-39.9) Pericarditis [...] nursing note reviewed. Exam conducted with a technology lead present. Vitals: Estimated body mass index is [...] of: Brain Way DO documented in this encounterCarondelet [id number] History of Present illness Narrative* HIPOLITO Shore - 09/07/2024 2:30 PM EST Reason for Appointment: Patient ID: Tawnya Shay [...] H/O calculus of kidney during Tiffani's disease ([facility]) 02/2022 History of Obesity (BMI [...] behalf of: HIPOLITO Shore documented in this encounterCarondelet [id number] NoteHistory and Physical HOSPITAL REGULATIONS: All Positive and [...] was apparent urinary tract infection. She had hada previous history of pre-term labor. PAST MEDICAL HISTORY: Includes a history of kidney stones, history of Tiffani disease, history ofcesarean section. Also, history of pericarditis. Prior to [...] contractions had resolved. Her cervix was long andclosed. She is discharged to keep her visit with her physician, Dr. Way, as scheduled. Rogelio Nath M.D. leeroy Dictated: 09/05/2024 [id number] Transcribed: 09/05/2024Paulding County HospitalComment on above:Result Comment: Electronically Signed By: Pham GALLAGHER, Rogelio Robins\.br\Date and Time Signed: 09/07/24 08:38 [id number] Hospital Discharge instructions Patient Education 09/06/2024 16:15:07 Concussion, Adult, Qcfc-qd-Nlzw Concussion, Adult A concussion is a brain [...] a concussion, you should be very careful toavoid having a second concussion. What are the [...] if you are dizzy. General instructions Take pxla-fti-mflfutr and prescription medicines only as told by your doctor. Avoid taking strong pain medicines (opioids) after a concussion. Do not drink alcohol until your doctor says you can. Watch your symptoms and tell other people to do the same. Other problems can occur after a concussion. Tell your grain ii farmworker, teachers, school nurse, school counselor, job coach, or athletic team physician about your injury and symptoms. Tell them [...] the National Suicide Prevention Lifeline at or 482. This is open 24 hours a day. Text the Crisis Text Line at 768193. This information is not intended to replace advice given to you by your health care provider. Make sure you discuss any questions you have with your health care provider. Document Revised: 12/25/2022 Document Reviewed: 12/25/2022 [employer] Patient Education 2023 Ustream. Follow Up Care 09/06/2024 13:58:27 With:DARWIN LARADAVENPORT Address: [facility] [phone] Business (1) When:09/09/2024 16:14:40 Comments:Call to schedule a follow-up appointment with your primary care provider. Use Zofran as needed for nausea/vomiting. Return to the ED with any new or worsening symptoms. [facility] 01-22-2025 NoteED Patient Education Note Neurology Concussion, Adult A [...] a concussion, you should be very careful toavoid having a second concussion. What are the [...] you are dizzy. General instructions ??? Take nxsp-pse-kgnnamm and prescription medicines only as told by your doctor. ??? Avoid taking strong pain medicines (opioids) after a concussion. ??? Do not drink alcohol until your doctor says you can. ??? Watch your symptoms and tell other people to do the same. Other problems can occur after a concussion. ??? Tell your grain ii farmworker, teachers, school nurse, school counselor, job coach, or athletic team physician about your injury and symptoms. Tell them [...] ??? You have any (more content not included)...[facility] 09-06-2024 Evaluation + Plan noteExtracted from: Title:ED Note Author:Lashon Tee PA-C te:09/06/24 [...] date 09/06/24 15:25:00 EST, 09/06/24 15:25:00 EST [facility] [id number] NoteDischarge Instructions Given Worsening The following Patient Education Materials have been given to the patient: ~~ EducationM[facility] Evaluation + Plan note Extracted from: Title:ED [...] Diagnostic Tests Pending * Urine Culture 09/05/24 [facility] 01-21-2025 Hospital Discharge instructions Patient Education 09/05/2024 04:35:45 Syncope, Adult, Xtyf-xz-Ekfy Syncope, Adult Syncope is when you pass [...] you until you feel better. Medicines Take jukt-iam-kwhddmz and prescription medicines only as told by [...] provider. Document Revised: 12/11/2021 Document Reviewed: 12/11/2021 [employer]ek Patient Education 2023 [employer]. 09/05/2024 04:35:45 Nausea and Vomiting, Adult, Ercg-uz-Trng Nausea and Vomiting, Adult Nausea is feeling [...] fruit juice). ?Low-calorie sports drinks. Eat bland, eodd-uz-kvjhrb foods in small amounts as you are able, such as: ?Bananas. ?Applesauce. ?Rice. ?Low-fat (lean) meats. ?Samburg. ?Crackers. Avoid drinking fluids that have a lot of sugar or caffeine in them. This includes energy drinks, sports drinks, and soda. Avoid alcohol. Avoid spicy or fatty foods. General instructions Take tsbv-phd-xglqzta and prescription medicines only as told by your doctor. Drink enough fluid to keep your pee (urine) pale yellow. Wash your hands often with soap and water for at least 20 seconds. If you cannot use soap and water, use hand cnc mill and lathe operator. Make sure that everyone in your [...] your doctor about eating and drinking. Take xqnx-bsx-blqhtho and prescription medicines only as told by your doctor. Contact your doctor if your symptoms get worse or you have new symptoms. Keep all follow-up visits. This information is not intended to replace advice given to you by your health care provider. Make sure you discuss any questions you have with your health care provider. Document Revised: 02/06/2022 Document Reviewed: 02/06/2022 [employer] Patient Education 2023 Ustream. 09/05/2024 04:35:45 Diarrhea, Adult, Jaei-ag-Bmqb Diarrhea, Adult Diarrhea is when you pass [...] regular sports drinks. ?Avoid alcohol. Eat bland, bfzq-bb-jyjxqj foods in small amounts as you are able. These foods include: ?Bananas. ?Applesauce. ?Rice. ?Low-fat (lean) meats. ?Samburg. ?Crackers. Avoid spicy or fatty foods. Medicines Take gdxb-jfl-gftzguh and prescription medicines only as told by your doctor. If you were prescribed antibiotics, take them as told by your doctor. Do not stop taking them even if you start to feel better. General instructions Wash your hands often using soap and water for 20 seconds. If soap and water are not available, usehand cnc mill and lathe operator. Others in your home should wash [...] provider. Document Revised: 01/19/2023 Document Reviewed: 01/19/2023 [employer] Patient Education 2023 [employer]stream. 09/05/2024 04:35:45 Dehydration, Adult, Digm-rk-Ljff Dehydration, Adult Dehydration is a condition in [...] or sea (high in altitude). The thinner, matrix drier tender air causes more fluid loss. [...] of fat or sugar. General instructions Take woyw-dtz-pxhyjmt and prescription medicines only as told by [...] provider. Document Revised: 03/01/2023 Document Reviewed: 03/01/2023 [employer] Patient Education 2023 [employer]stream. Follow Up Care 09/05/2024 03:04:39 With:Brain WAY Address: [address] , [place] [address]- Business (1) When:09/07/2024 Comments:Call 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supervisory historian prescriptions at [facility] With:DARWIN JANEDAVENPORT Address: [facility] [place] [id number]- [phone] Business (1) When:09/08/2024 Comments:Please follow-up with Dr. Way for further evaluation management. Please return to the ED for any new or worsening symptoms. [facility] [id number] NoteProgress Note-Nurse @2095 OB RN arrived in patient room in ER room 14. Patient placed on & ctx monitor. Patient ctx every 2-5 min 40-60 sec with some 20-30sec irritability. Ctx mild to palpation. Pt rates them 4/10 on pain scale. reactive for gestation with baseline HR of 130. RN will report finding to OB Dr Nath and ask about admission for further evaluation on OB unit.[facility]01-21-2025 NoteED Patient Education Note Gastroenterology Nausea [...] ? Low-calorie sports drinks. ??? Eat bland, aciz-vi-cjgcfc foods in small amounts as you are able, such as: ? Bananas. ? Applesauce. ? Rice. ? Low-fat (lean) meats. ? Samburg. ? Crackers. ??? Avoid drinking fluids that have a lot of sugar or caffeine in them. This includes energy drinks, sports drinks, and soda. ??? Avoid alcohol. ??? Avoid spicy or fatty foods. General instructions ??? Take hjmk-xbj-ngefjrr and prescription medicines only as told by your doctor. ??? Drink enough fluid to keep your pee (urine) pale yellow. ??? Wash your hands often with soap and water for at least 20 seconds. If you cannot use soap and water, use hand cnc mill and lathe operator. ??? Make sure that everyone in [...] doctor about eating and drinking. ??? Take aiej-ley-ejnrpty and prescription medicines only as told by your doctor. ??? Contact your doctor if your symptoms get worse or you have new symptoms. ??? Keep all follow-up visits. This information is not intended to replace advice given to you by your health care provider. Make sure you discuss any questions you have with your health care provider. Document Revised: 02/06/2022 Document Reviewed: 02/06/2022 [employer]ek Patient Education ? 2023 [employer]. Infectious Disease Diarrhea, Adult Diarrhea is [...] Take an ORS (ora (more content not included)...[facility] 08-25-2024 Evaluation note* Diagnosis Onset Date Resolution Status Admit Date Class 2 obesity with body ma ss index (BMI) of 37.0 to 37.9 in adult acute August 25 11:56am Tiffani's disease acute Janua 2024 11:56am Hypothyroidism acute August 252024 11:56am Mild left ventricular hypertrophy acute August 25 11:56am Second trimester acute August 25, 2024 11:56am [facility] Work Phone: 1(579) 652-559301-08-2025 History of Present illness Narrative* Aleisha Abreu, [...] nursing note reviewed. Exam conducted with a technology lead present. Vitals: Estimated body mass index is [...] of: Brain Way DO documented in this encounterCarondelet [id number] History of Present illness Narrative* Aleisha Abreu [...] H/O calculus of kidney during Tiffani's disease ([facility]) 02/2022 History of Obesity (BMI 30-39.9) Pericarditis HISTORY PAST MEDICAL HISTORY SOCIAL HISTORY Past Medical History: Diagnosis Date Anxiety Blood type, Rh positive H/O calculus of kidney during Tiffani's disease ([facility]) 02/2022 History of Obesity (BMI 30-39.9) Pericarditis [...] nursing note reviewed. Exam conducted with a technology lead present. Vitals: Estimated body mass index is [...] of: Brain Way DO documented in this encounterCarondelet [id number] History of Present illness Narrative* Laura Herron [...] male Have you been seen here at [facility] in a previous ? No Recent ER visits or hospitalizations? no Bring blood sugar log or meter with you today? (Please bring them with you for every visit at [facility]) n/a Flu vaccine (Jun-October)? Yes Any concerns that you would like me to mention to the provider today? No * Hayden Coelho MD - 2024 2:15 PM EST Images [...] effusion. Also she was then evaluated by well testing operator who told her that she had pericarditis and that resolved with a taking Motrin however she did not had an echocardiogram. Saw Dr. Coronado. 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 Yes NotIn System Ref Prov xd931-xbpb-dhdkc acid ( 19) 29 mg iron- 1 [...] would recommend she establishes care with a automotive teacher for it to be further evaluated [...] Please refer her locally to see a automotive teacher for the incidental finding on the [...] me if you have any concerns. Hayden Coelho MD, FACOG (she/hers) Maternal- Medicine [facility] [address] [facility] [address] [place] [address] This document was created with [employer] technology. Though I make every effort to review the dictation as it is transcribed, on occasion the spoken word can be misinterpreted by the technology leading to inappropriate words, phrases, or sentences. This note is addressed to the requesting provider as a consultation for clinical guidance. Specificmedical abbreviations are occasionally used and those are generally approved by the Chinese?Board of?Obstetrics and?Gynecology?as well as?Lauryn lund abbreviations. The above plan of care was based solely on the diagnoses for which a consultation was requested. ?More frequent testing may be indicated based on her other medical/obstetrical conditions. The management of other or medical conditions is beyond the scope of requested consultation and will c ontinue to be followed by the primary teleradiologist or primary care provider. Note to patient: [...] opinion of the practitioner. documented in this encounterC[facility]innati [facility]11[facility] Radiology Diagnostic study [facility] [place] [address] Ultrasound Report Signed Patient: Tawnya Herring MR#: [id number] : 1995 Acct:[id number] Age/Sex: 28 / F ADM Date: 4 Loc: Room: Type: [facility] Attending Dr: Brain Way DO [...] Norton Jr., D.O.06/22/2024 4:00 PM Dictation Location: [employer] Tech: Rae Baldev Transcribed By: AGUILAR 06/22/24 1600 Dictated By: Zay Norton Jr, DO 06/22/24 1552 Signed By: 06/22/24 1600 [facility]10-28-2024 History of Present illness Narrative * [...] H/O calculus of kidney during Tiffani's disease ([facility]) 02/2022 History of Obesity (BMI 30-39.9) Pericarditis [...] pericarditis post last . We will send [facility] referral Follow Up: Patient is to return to office in 4 week for routine OB appointment. Documented by HIPOLITO Shore on behalf of: Brain Way DO documented in this encounterCarondelet [id number] Evaluation note* Diagnosis Onset Date Resolution Status Admit Date Well adult exam noneactive May 11, 2024 10:46am [facility] Work Phone: 1(925) 496-311009-25-2024 History of Present illness Narrative* Aleisha Abreu [...] H/O calculus of kidney during Tiffani's disease ([facility]) 02/2022 History of Obesity (BMI 30-39.9) Pericarditis HISTORY PAST MEDICAL HISTORY SOCIAL HISTORY Past Medical History: Diagnosis Date Anxiety Blood type, Rh positive H/O calculus of kidney during Tiffani's disease ([facility]) 02/2022 History of Obesity (BMI 30-39.9) Pericarditis [...] nursing note reviewed. Exam conducted with a technology lead present. Vitals: Estimated body mass index is [...] of: Brain Way DO documented in this encounterCarondelet [id number] History of Present illness Narrative* Coral Rg [...] H/O calculus of kidney during Tiffani's disease ([facility]) 02/2022 History of Obesity (BMI 30-39.9) Pericarditis HISTORY PAST MEDICAL HISTORY SOCIAL HISTORY Past Medical History: Diagnosis Date Anxiety Blood type, Rh positive H/O calculus of kidney during Tiffani's disease ([facility]) 02/2022 History of Obesity (BMI [...] nursing note reviewed. Exam conducted with a technology lead present. Vitals: Estimated body mass index is [...] of: Brain Way DO documented in this encounterCarondelet [id number] History of Present illness Narrative* Thelma Elizabeth [...] meat, and stay away from [facility]. Patient has also been advised to [...] by: Thelma Elizabeth LPN documented in this encounterCarondelet HealthVrlscizpbj81-35-3149 Hospital Discharge instructions Patient Education 03/18/2024 12:15:03 [...] provider. Document Revised: 01/31/2021 Document Reviewed: 01/31/2021 [employer] Patient Education 2022 [employer]. 03/18/2024 12:15:03 Subchorionic Hematoma Subchorionic Hematoma A [...] provider. Document Revised: 04/28/2021 Document Reviewed: 04/28/2021 [employer] Patient Education 2022 [employer]. Follow Up Care 03/18/2024 08:08:01 With:Rogelio Nath Address: [address], [address] [address]- Business (1) When:03/21/2024 11:54:39 With:DARWIN JONES Address: [address] [place] [phone] Business (1) When:Within 3 Day(s) [facility] 08-03-2024 NoteED Patient Education Note Obstetrics [...] provider. Document Revised: 01/31/2021 Document Reviewed: 01/31/2021 [employer] Patient Education ? 2022 [employer] Subchorionic Hematoma A hematoma is a collection of blood outside of the blood vessels. A subchorionic hematoma is a collection of blood between the outer wall of the embryo (chorion) and the inner wall of the uterus. This condi (more content not included)...[facility]04-04-2024 History of Present illness Narrative* [...] alert, in no acute distress, Obese EYES ODALYS, extra occular movements normal NECK Supple, no [...] Whittington MD Endocrinology Staff documented [facility]Cl[facility] Instructions* Patient Instructions* Odalis Greene - 11/18/2023 7:58 AM EDT Thank you for choosing the [facility] Department of Endocrinology, Diabetes and Metabolism. Did you know that you need to call 48 hours in advance of your scheduled visit, if you are unable to make your appointment? The Endocrinology and Metabolism [place] thanks you for your commitment, because patients not showing to their appointment results in a lost opportunity for patients to receive [facility] health care at the [facility]. To Cancel an appointment, please choose one of the following: - Call the Appointment Call Center at [phone] - From [employer], Go to Appointments - Cancel Appts If cancelling, consider your need to reschedule to prevent further delays in your care. To Schedule an appointment, please choose one of the following: - Call the Appointment Call Center at [phone] - From [employer], Go to Appointments - Request an Appt documented in this encounterClinton [facility] Hospital02-14-2024 Hospital Discharge instructions Patient Education [...] numbers. This can be done either in [place] (U.S[place] or metric measurements. Note that charts and online BMI calculators are available to help you find your BMI quickly and easily without having to do these calculations yourself. To calculate your BMI in Ukrainian ([place] measurements: 1.Measure your weight in pounds [...] Centers for Disease Control and Prevention: www.cdc.gov [employer] Heart Association: www.heart.org National Heart, Lung, and Blood [place]: www.nhlbi.nih.gov Summary Body mass index (BMI) is a number that is calculated from a person's weight and height. BMI may help estimate how much of a person's weight is composed of fat. BMI can help identify thosewho may be at higher risk for certain medical problems. BMI can be measured using Ukrainian measurements or metric measurements. BMI charts are used to identify whether you are underweight, normal weight, overweight, or obese. This information is not intended to replace advice given to you by your health care provider. Make sure you discuss any questions you have with your health care provider. Document Revised: 04/24/2020 Document Reviewed: 03/01/2020 [employer] Patient Education 2022 [employer]. 09/29/2023 11:04:59 Sinus Infection, Adult Sinus Infection, [...] saline washes). ?Medicines that treat allergies (antihistamines). ?Gaou-ghl-acoyvhz pain relievers. If caused by bacteria, your [...] at home: Medicines Take, use, or apply klmc-dgx-zaghczp and prescription medicines only as told by [...] water are not available, use hand cnc mill and lathe operator. Do not smoke. Avoid being around [...] provider. Document Revised: 07/07/2022 Document Reviewed: 07/07/2022 [employer] Patient Education 2022 [employer]. Follow Up Care 09/29/2023 09:12:00 With:DARWIN JONES CNP Address: [address] [place] [address] [place] [address]- When: Unknown [facility] Care 02-06-2024 Evaluation note* Encounter [...] is required on scripts in the state [facility]. Sep, Other *Progress note was completed with the assistance of voice recognition software for dictation purposes. Please excuse any grammatical errors that were not corrected during review process. [employer] [facility] Other 01-10-2024 Evaluation note* Encounter Date Diagnosis [...] that were not corrected during review process. [facility] Other 12-01-2023 Miscellaneous Notes* Telephone Encounter - Kenan Gomez - 07/16/2023 9:39 AM EST LVM to let patient know their appt has been rescheduled with Dr. Whittington. [facility]* Encounter Date Diagnosis [...] comfortable prescribing this medication at this time. [facility] Other 10-24-2023 History of Present illness Narrative* Francy Holloway PA-C - 06/08/2023 2:23 PM EDT CC: [...] will be in touch with results via [employer] HPI: Tawnya is a 27 year old [...] necessary the ROS obtained by others. Francy Holloway PA-C PHYSICAL EXAM: Temp 36.2 C (97.2 [...] The vocal cords moved well bilaterally. Francy Holloway PA-C Medical Decision Making: Problems: Moderate: New problem with uncertain prognosis Data: Unique test(s) ordered: 1 Risk: Low: Low risk from testing/treatment Medical Decision Making Level: 3 - Low documented [facility] Instructions* Patient Instructions* Francy Holloway PA-C - 06/08/2023 2:16 PM EDT Continue the omeprazole for another 1.5 months documented [facility]Cl[facility] Evaluation note* Encounter Date Diagnosis [...] that were not corrected during review process. [facility] Other 09-13-2023 Evaluation note* Encounter Date Diagnosis [...] Discussed short term 8 week course vs. risk management director management. Discussed pros and cons of taking [...] that were not corrected during review process. [facility] Other 09-01-2023 Evaluation note* Encounter Date Diagnosis [...] SCANNED INTO PATIENT CHART AND FAXED TO [employer]. Apr, Other We did briefly discussed the [...] that were not corrected during review process. [facility] Other 08-08-2023 Hospital Discharge instructions Patient Education 03/22/2023 22:52:44 Urinary Tract Infection, Adult, Wnws-lg-Fusk Urinary Tract Infection, Adult A urinary tract [...] Follow these instructions at home: Medicines Take wdoj-qai-cxvtwav and prescription medicines only as told by [...] provider. Document Revised: 03/14/2021 Document Reviewed: 03/14/2021 [employer] Patient Education 2022 [employer]. Follow Up Care 03/22/2023 19:54:03 With:DARWIN JONES Address: [address] [place] [address] [place] [address]- [phone] Business (1) When:03/25/2023 Comments:Follow-up with your primary care provider in 3 to 5 days. If symptoms worsen, do not improve, or new symptoms arise please report back to emergency department for further evaluation. [facility]08-07-2023 Evaluation + Plan note Diagnostic Tests Pending * Urine Culture 03/22/23 [facility]03-02-2023 Evaluation note* Encounter Date Diagnosis Assessment Notes Treatment Notes Treatment Clinical Notes Oct, Nausea & vomiting (ICD-10 - R11.2) [facility] Other 02-20-2023 Evaluation note* Encounter Date Diagnosis [...] Encounter for weight management (ICD-10 - Z76.89) [facility] Other 02-13-2023 Miscellaneous Notes* Addendum Note - [...] daily. Ruby Whittington MD documented in [facility] encounterCl[facility] Evaluation note* Encounter Date Diagnosis [...] especially if or when nausea occurs. 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 She is currently on adequate supplementation and will follow up with them. Jul, Daytime sleepiness (ICD-10 - R40.0) Continue to work on good sleep hygiene and control factors that she can.This could also improve with additional water intake. Jul, Mild depression (ICD-10 - F32.9) Jul, Encounter for weight management (ICD-10 - Z76.89) [facility] Other 11-29-2022 History of Present illness Narrative* [...] Thyroid problem. Referring Physician: Darwin Jones APRN, CONSERVATION BIOLOGY PROFESSOR Reason for visit: Hypothyroidism due to Tiffani's [...] alert, in no acute distress, Obese EYES ODALYS, extra occular movements normal NECK Supple, no [...] MD Endocrinology Staff CC: Darwin Jones APRN, AMIE. [address] [place] [address] documented in this encounterCl[facility]11-29-[facility]22 Instructions* Patient Instructions* Soo Begum Ma - 07/14/2022 8:46 AM EST Thank you for choosing the [facility] Department of Endocrinology, Diabetes and Metabolism. Did you know that you need to call 48 hours in advance of your scheduled visit, if you are unable to make your appointment? The Endocrinology and Metabolism [place] thanks you for your commitment, because patients not showing to their appointment results in a lost opportunity for patients to receive [facility] care at the [facility]. To Cancel an appointment, please choose one of the following: - Call the Appointment Call Center at [phone] - From [employer], Go to Appointments - Cancel Appts If cancelling, consider your need to reschedule to prevent further delays in your care. To Schedule an appointment, please choose one of the following: - Call the Appointment Call Center at [phone] - From [employer], Go to Appointments - Request an Appt documented in this encounterCl[facility]11-02-2022 Evaluation note* Encounter Date Diagnosis [...] samples and titrate her up slowly until [facility] insurance kicks in in August. We [...] will discuss at later date if needed. [facility] Other 10-20-2022 Evaluation note* Encounter Date Diagnosis [...] Pt understood and agreed to tx plan. [facility] Other 10-12-2022 Evaluation note* Encounter Date Diagnosis [...] patient set personal goal using given handout. [facility] Other 10-10-2022 Miscellaneous Notes* Telephone Encounter - Linn Hancock - 05/25/2022 2:35 PM EDT LVM for patient that appt on 05/[address] George has been rescheduled to 07/[facility] [address] [facility] with Dr. Robertson. sending mail reminder as well. 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 Her Mallampati is not [...] of a comprehensive approach to obesity management [facility] Other 09-02-2022 Evaluation note* Encounter Date Diagnosis [...] to start the weight management program at [facility] in the coming months.Nothing further needed [...] that were not corrected during review process. [facility] Other 07-07-2022 Hospital Discharge instructions Patient Education [...] Follow these instructions at home: Medicines Take nljv-lhk-tbzetml and prescription medicines only as told by [...] 04/27/2002 Document Revised: 08/05/2018 Document Reviewed: 05/14/2017 [employer] Patient Education 2020 [employer] 02/18/2022 22:49:49 Migraine Headache Migraine Headache [...] Follow these instructions at home: Medicines Take scon-zso-kqoakop and prescription medicines only as told by your health care provider. Ask your health care provider if the medicine prescribed to you: ?Requires you to avoid driving or using heavy machinery. ?Can cause constipation. You may need to take these actions to prevent or treat constipation: ?Drink enough fluid to keep your urine pale yellow. ?Take vvgd-ptm-xmlzmch or prescription medicines. ?Eat foods that are [...] 08/02/2006 Document Revised: 11/24/2019 Document Reviewed: 09/14/2019 [employer] Patient Education 2020 [employer]. Follow Up Care 02/18/2022 20:32:17 With:DARWIN JONES Address: [address] [place] [address] [place] [address]- [phone] Business (1) When:Within 3 Day(s) [facility]07-06-2022 Evaluation + Plan noteExtracted from: Title:ED [...] voices understanding and is agreeable to plan. [facility]07-06-2022 Evaluation note* Encounter Date Diagnosis Assessment [...] and remind her of lab draw at [facility]. Feb, Thyromegaly (ICD-10 - E01.0) Discussed [...] that were not corrected during review process. [facility] Other 07-01-2022 History general Narrative - Reported* Type Description Date Medical History Anxiety Medical History pericardi tis- Resolved cardiology signed off Medical History Kidney stones during Medical History Tiffani's disease February 2022 Medical History Abnormal thyroid ult rasound February 2022 work-up pending by ENT Surgical History 2019 Surgical History Cystoscopy 05/2021 Surgical History 2020 Hospitalization History See surgical hx [facility] Other 07-01-2022 History general Narrative - Reported* Type Description Date Medical History Anxiety Medical History pericardi tis- Resolved cardiology signed off Medical History Kidney stones during Medical History Tiffani's disease February 2022 Medical History Abnormal thyroid ult rasound February 2022 work-up pending by ENT Medical History Parathyroid adenoma Surgical History 2019 Surgical History Cystoscopy 05/2021 Surgical History 2020 Hospitalization History See surgical hx [facility] Other 06-29-2022 Evaluation note* Encounter Date Diagnosis [...] that were not corrected during review process. 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 [facility]* Diagnosis 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 documented in this encounter [facility]* Diagnosis Dysphagia, unspecified type- Primary LPRD (laryngopharyngeal reflux disease) Other diseases of larynx documented in this encounter [facility]* Diagnosis Onset Date Resolution Status Obesity [facility] Work Phone: evaluation note* Diagnosis 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 Irregular menstruation, unspecified Female infertility Female infertility of unspecified origin Calculus of kidney documented in this encounter [facility]* Diagnosis Onset Date Resolution Status Obesity acute Class 2 obesity with body ma ss index (BMI) of 37.0 to 37.9 in adult [facility] Work Phone: evaluation note* Diagnosis Onset Date Resolution Status Obesity acute Class 2 obesity with body ma ss index (BMI) of 37.0 to 37.9 in adult acute Class 2 obesity with body ma ss index (BMI) of 37.0 to 37.9 in adult [facility] Work Phone: evaluation note* Diagnosis Onset Date Resolution Status Class 2 obesity with body ma ss index (BMI) of 37.0 to 37.9 in adult acute Class 2 obesity with body ma ss index (BMI) of 37.0 to 37.9 in adult [facility] Work Phone: evaluation note* Diagnosis Onset Date Resolution Status Class 2 obesity with body ma ss index (BMI) of 37.0 to 37.9 in adult [facility] Work Phone: evaluation note* Diagnosis Onset Date Resolution Status Well adult exam noneactive [facility] Work Phone: evaluation note* Diagnosis Second trimester state, incidental 18 weeks gestation of Screening, , for anatomic survey Encounter for anatomic survey documented in this encounter [facility] HealthcareEvaluation note* Diagnosis 22 weeks gestation of Second trimester state, incidental Nausea and vomiting during Diabetes mellitus screening Screening for diabetes mellitus documented in this encounter [facility] HealthcareEvaluation note* Diagnosis Missed menses documented in this encounter [facility] HealthcareEvaluation note* Diagnosis First trimester state, incidental Well woman exam with routine gynecological exam Routine gynecological examination Screen for STD (sexually transmitted disease) Screening examination for venereal disease Vaginal discharge Leukorrhea, not specified as infective documented in this encounter [facility] HealthcareEvaluation note* Diagnosis Second trimester state, incidental documented in this encounter [facility] HealthcareEvaluation note* Diagnosis 29 weeks gestation of Third trimester state, incidental Gastroesophageal reflux in documented in this encounter [facility] HealthcareEvaluation note* Diagnosis Third trimester state, incidental 31 weeks gestation of size inconsistent with dates documented in this encounter [facility] HealthcareEvaluation note* Diagnosis 32 weeks gestation of Third trimester state, incidental Abnormal TSH documented in this encounter [facility] HealthcareEvaluation note* Diagnosis 20 weeks gestation [...] type Depression affecting [facility]* Diagnosis History of pericarditis- Primary Mild concentric left ventricular hypertrophy (LVH) 25 weeks gestation of documented in this encounter [facility]* Diagnosis 35 weeks gestation of Third trimester state, incidental documented in this encounter [facility] HealthcareEvaluation note* Diagnosis Third trimester state, incidental 36 weeks gestation of Excessive growth affecting management of , antepartum, single or unspecified fetus documented in this encounter [facility] HealthcareEvaluation note* Diagnosis 37 weeks gestation of Third trimester state, incidental Anxiety, generalized (CMS/HCC) documented in this encounter [facility] HealthcareEvaluation note* Diagnosis 38 weeks gestation of Third trimester state, incidental documented in this encounter [facility] HealthcareEvaluation note* Diagnosis S/P section Other postprocedural status Incisional irritation, initial encounter Incisional pain documented in this encounter [facility] HealthcareEvaluation note* Diagnosis 6 weeks follow-up documented [facility] History 2020 Hospitalization History See surgical hx [facility] Other Histhhi general Narrative - Reported* Type Description Date [...] History 2020 Hospitalization History See surgical hx [facility] Other Hisnkwt general Narrative - Reported* Type Description Date [...] History 2020 Hospitalization History See surgical hx [facility] Other History of Present illness Narrative* Patient [...] no other testing or intervention appears necessary. [facility] [address] DO Work Phone: Hospital course Narrative No data available for this section [facility] No data available for this section [facility] InstructionsNot on filedocumented in this encounter [facility] SystemInstructions* Attachments The following attachments cannot be sent through Care Everywhere. * Preeclampsia (Ukrainian) documented in this encounterPro[facility] SystemInstructionsNot on file documented in this encounterProAdena [facility] System SystemProgress note No data available for this section [facility] (narrative)* Reason Dr. 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) Referral Organization [facility] Referring Provider First Name Darwin Referring Provider Last Name [facility] Referring Provider Specialty Nurse Pract itioner Referred Provider Specialty Endocrinolog y Referral Priority Routine [facility] Other Reason for referral (narrative)* Diagnostic Procedure Only (Routine) - Pending Review Specialty Diagnoses / Procedures Referred By Clint scott Referred To Contact XR IMAGING Diagnoses Dysphagia, unspecified type Procedures XR MODIFIED BARIUM SWALLOW W SPEECH THERAPY RADIOLOGIC EXAM SWALLOW FUNCTION CONTRAST STUDY Francy Holloway PA-C [address] [place] [address] [place] [id number] Referral ID Status Reason Start Date Expiration Date Visits Requested Visits Authorized [id number] Pending Review Auto-Generat ed Referral 3 07/07/2024 1 1 [facility]No reason for referral information [facility] Work Phone: Chief Complaint TAWNYA HERRING is being seen [...] tova father Hypertension Unknown grandparent Hypothyroidism Unknown Relationship Condition Age at Onset Recorded Date/T tova father Hypertension Unknown maternal grandmother Hypothyroidism Unknown Summary Purpose Advance Directives No Advanced Directives Records Found Advance Directive Response Recorded Date/ Time Advance Directives No June 17, 2020 1:51pm Advance Directive Response Recorded Date/ Time Advance Directives No June 17, 2020 12:51pm Chief Complaint and Reason for Visit Chief Complaint Admit Date 6 week March 05, 2025 8:26 am pillars May 11, 2025 9:59am Reason for Visit Admit Date Daytime sleepiness March 05, 2025 8:26 am GERD (gastroesophageal reflux disease) J payton2024 8:26am 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, 2025 8:26 am Obesity, Class III, BMI 40-49.9 (morbid obesity) March 05, 2025 8:26am Daytime sleepiness April 25, 2025 9:39am GERD (gastroesophageal reflux disease) S [facility] 2024 9:39am Tiffani's disease April 25, 2025 9:39am Obesity, Class III, BMI 40-49.9 (morbid obesity) April 25, 2025 9:39am Chief Complaint Pillars Chief Complaint Pillars E01.0 [...] 2024 1 1:56am Chief Complaint Admit Date z36.June 22, 2024 1 2:51pm z34.92 z3a.18 z86.39 [...] :43am z86.39 September 21, 2024 8 :46am Chief Complaint Admit Date LVH/20 wks August 25, 2024 1 1:56am I51.7 August 25, 2024 1 2:02pm Amb Documentation September 07, 2024 1 :42pm I51.7 September 14, 2024 9 :43am z86.39 September 21, 2024 8 :46am e03.9 z86.39 November 09, 2024 12: 09pm Chief Complaint Admit Date e03.9 z86.39 November 09, 2024 12: 09pm WMN Restart January 22, 2025 7:21a m Chief Complaint Admit Date WMN Restart January 22, 2025 7:21a m e03.9 January 25, 2025 10:1 0am 6 week March 05, 2025 8:26 am Reason for Visit Admit Date Daytime sleepiness January 22, 2025 7:21a m GERD (gastroesophageal reflux disease) J 2024 7:21am Tiffain's disease January 22, 2025 7:21a m Obesity, Class III, BMI 40-49.9 (morbid obesity) January 22, 2025 7:21am Daytime sleepiness March 05, 2025 8:26 am GERD (gastroesophageal reflux disease) J payton2024 8:26am 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, 2025 8:26 am Obesity, Class III, BMI 40-49.9 (morbid obesity) March 05, 2025 8:26am Chief Complaint Admit Date e03.9 January 25, 2025 10:1 0am 6 week March 05, 2025 8:26 am Chief Complaint Admit Date 6 week March 05, 2025 8:26 am pillars May 11, 2025 9:59am r79.89 d35.1 May 14, 2025 3:34pm Reason for Referral Reason ENT- [facility]- thyromegal y/abnormal US/dysphagia Diagnosis 1 Dysphagia, unspecifi ed type (R13.10) Referral Organization [facility] [employer] Referring Provider First Name Darwin Referring Provider Last Name [facility] Referring Provider Specialty Nurse Pract itioner Referred Organization [facility] Referred Address [address] [place], [place],[address] Referred Provider Specialty Ear, Nose an d Throat Referral Priority Routine Reason ABNORMAL US OF THYRO ID Newly discovered [employer] Diagnosis 1 Thyromegaly (E01.0) [facility] Referring Provider First Name Darwin Referring Provider Last Name [facility] Referring Provider Specialty Nurse Pract itkwasir Referred Provider Specialty Ear, Nose an d Throat Referral Priority Routine Additional Source Comments INFORMATION SOURCE (unrecogn ized section and content) DATE CREATED AUTHOR 09/04/2021 [employer] DATE CREATED AUTHOR AUTHOR'S ORGANIZ ATION 12/18/2022 [facility] DATE CREATED AUTHOR AUTHOR'S ORGANIZ ATION 03/20/2024 [facility] DATE CREATED AUTHOR AUTHOR'S ORGANIZ ATION 08/05/2024 [facility] DATE CREATED AUTHOR AUTHOR'S ORGANIZ ATION 09/06/2024 [facility] DATE CREATED AUTHOR AUTHOR'S ORGANIZ ATION 09/08/2024 [facility] DATE CREATED AUTHOR AUTHOR'S ORGANIZ ATION 09/13/2024 [facility] DATE CREATED AUTHOR AUTHOR'S ORGANIZ ATION 10/17/2024 [facility] DATE CREATED AUTHOR AUTHOR'S ORGANIZ ATION 10/21/2024 [facility] DATE CREATED AUTHOR AUTHOR'S ORGANIZ ATION 10/25/2024 [facility] DATE CREATED AUTHOR AUTHOR'S ORGANIZ ATION 12/14/2024 [facility] DATE CREATED AUTHOR AUTHOR'S ORGANIZ ATION 05/22/2025 [facility] DATE CREATED AUTHOR AUTHOR'S ORGANIZ ATION 05/26/2025 [facility] Care Teams (unrecognized sec tion and content) Team Status: Active Member Role Status Dates Darwin Jones APRN Primary Care Provider Active Team Status: Inactive Member Role Status Dates Darwin Jones APRN Primary Care Provider Active Start: January 22, 2025 End: January 22, 2025 Ofelia Hester APRN Attending Provider Active Start: January 22, 2025 End: January 22, 2025 Team Status: Inactive Member Role Status Dates Darwin Jones APRN Primary Care Provider Active Start: January 25, 2025 End: January 25, 2025 Darwin Jones APRN Attending Provider Active Start: January 25, 2025 End: January 25, 2025 Team Status: Inactive Member Role Status Dates Darwin Jones APRN Primary Care Provider Active Start: March 05, 2025 End: March 05, 2025 Ofelia Hester APRN Attending Provider Active Start: March 05, 2025 End: March 05, 2025 Team Status: Active Member Role Status Dates Darwin Jones APRN Primary Care Provider Active Start: October 31, [address] DO Attending Provider Active Start : October 31, 2024 Team Status: Active Member Role Status Dates Darwin Jones APRN Primary Care Provider Active Start: November 01, [address] DO Attending Provider Active Start : November 01, 2024 Team Status: Inactive Member Role Status Dates Darwin Jones APRN Primary Care Provider Active Start: November 09, 2024 End: November 09, 2024 Leah Mata APRN COUNTRY PRINTER APPRENTICE-C Attending Provider Active Start: November 09, 2024 End: November 09, 2024 Team Status: Inactive Member Role Status Dates Darwin Jones APRN Primary Care Provider Active Start: October 01, 2023 End: October 01, [address] Attending Provider Active Start: 2023 End: October 01, 2023 Team Status: Inactive Member Role Status Dates Darwin Jones APRN Primary Care Pr ovider, Attending Provider Active Start: October 20, 2023 End: October 20, 2023 Team Status: Inactive Member Role Status Dates Darwin Jones APRN Primary Care Provider Active Start: November 01, 2023 End: November 01, [address] Attending Provider Active Start: [facility] 2023 End: November 01, 2023 Team Status: [...] [facility] Attending Provider Active Team Status: Active Member Role Status Dates PHYSICIAN NO FAMILY Primary Care Provider Active Team Status: Inactive Member Role Status Dates Darwin Jones APRN Primary Care Provider, Attend ing Provider Active Team Status: Inactive Member Role Status Dates Darwin Jones APRN Primary Care Provider Active Saad Valera DO Attending Provider Active Top Icer Relationship Specialty Start Date End Date Darwin Jones CNP [address] [facility] [address] [address] Referring Family Medicine 04/22/22 Top Icer Relationship Specialty Start Date End Date Darwin Jones CNP [address] [place] [address] Referring Family Medicine 04/22/22 Team Status: Inactive Member Role Status Dates Darwin Jones APRN Primary Care Provider Active Jeovanny Quiros DO Emergency Provider Active Top Icer Relationship Specialty Start Date End Date Darwin Jones CNP [address] [place] [address] Referring Family Medicine 04/22/22 Top Icer Relationship Specialty Start Date End Date Darwin Jones CNP [address] [place] [address] Referring Family Medicine 04/22/22 Team Status: Inactive Member Role Status Dates Darwin Jones APRN Attending Provider Active Start: July 23, 2023 End: July 23, 2023 Team Status: Inactive Member Role Status Dates Darwin Jones APRN Attending Provider Active Start: August 25, 2023 End: August 25, 2023 Top Icer Relationship Specialty Start Date End Date Darwin Jones CNP [address] [facility] [address] [place] [address] Referring [facility] Medicine 04/22/22 Team Status: Inactive Member [...] [address] Attending Provider Active Start: Rosalia 2023 End: January 24, 2024 Team Status: [...] End: April 06, 2024 Addi PERES DO [facility] Attending Provider Active Start: April 06, [...] End: June 22, [address] , Attending Provider Active Start : June 22, [...] September 21, 2024 End: September 21, 2024 Top Icer Relationship Specialty Start Date End Date No Pcp, [place] [address] PCP - General Family Medicine 08/19/19 Top Icer Relationship Specialty Start Date End Date No Pcp, [place] [address] PCP - General Family Medicine 08/19/19 Top Icer Relationship Specialty Start Date End Date No Pcp, [place] [address] PCP - General Family Medicine 08/19/19 Team Status: Active Member Role Status Dates Darwin Jones APRN Primary Care Provider Active Start: September 14, 2024 Mary Ellen Bruce MD Attending Provider, Other Provider Active Start: September 14, 2024 Team Status: Active Member Role Status Dates Darwin Jones APRN Primary Care Provider Active Start: October 10, [address] DO Attending Provider Active Start : October 10, 2024 Team Status: Inactive Member Role Status Dates Darwin Jones APRN Primary Care Provider Active Start: April 25, 2025 End: April 25, 2025 Ofelia Hester APRN Attending Provider Active Start: April 25, 2025 End: April 25, 2025 Team Status: Inactive Member Role Status Dates Darwin Jones APRN Primary Care Provider Active Start: May 11, 2025 End: May 11, 2025 Addi PERES DO [facility] Attending Provider Active Start: May 11, 2025 End: May 11, 2025 Team Status: Inactive Member Role Status Dates Darwin Jones APRN Primary Care Provider Active Start: May 11, 2025 End: May 11, 2025 Ofelia Hester APRN Attending Provider Active Start: May 11, 2025 End: May 11, 2025 Team Status: Inactive Member Role Status Dates Darwin Jones APRN Primary Care Provider Active Start: May 14, 2025 End: May 14, 2025 Darwin Jones APRN Attending Provider Active Start: May 14, 2025 End: May 14, 2025 Goals (unrecognized section and content) Goals may [...] George has been rescheduled to 07/08 at [facility] with Dr. Robertson. sending mail reminder as well. Reason Comments Thyroid Problem Reason Comments Consult Reason Comments Appointment Reason Comments Routine Visit Reason Comments Amenorrhea Reason Comments Tiffani's Thyroiditis Reason Comments Post-op Visit Pt present today for an incision check. Pt had a c/s on 10/31/2024. Reason Comments Follow-up Source Comments (unrecognize d section and content) In the event this informatio n is protected by the Federal Confidentiality of Alcohol and Drug Abuse Patient Records regulations: The Federal rules restrict any use of the information to criminally investigate or prosecute any alcohol or drug abuse patient.[facility] the event this information is protected by the Federal Confidentiality of Alcohol and Drug Abuse Patient Records regulations: The Federal rules restrict any use of the information to criminally investigate or prosecute any alcohol or drug abuse patient.[facility] the event this information is protected by the Federal Confidentiality of Alcohol and Drug Abuse Patient Records regulations: The Federal rules restrict any use of the information to criminally investigate or prosecute any alcohol or drug abuse patient.[facility] the event this information is protected by the Federal Confidentiality of Alcohol and Drug Abuse Patient Records regulations: The Federal rules restrict any use of the information to criminally investigate or prosecute any alcohol or drug abuse patient.[facility] the event this information is protected by the Federal Confidentiality of Alcohol and Drug Abuse Patient Records regulations: The Federal rules restrict any use of the information to criminally investigate or prosecute any alcohol or drug abuse patient.[facility] the event this information is protected by the Federal Confidentiality of Alcohol and Drug Abuse Patient Records regulations: The Federal rules restrict any use of the information to criminally investigate or prosecute any alcohol or drug abuse patient.[facility] FOR RECORDS PERTAINING TO PATIENTS [...] BE BASED ON THE PRIMARY CLINICAL RECORDS. [facility] [employer] [facility] provides no warranty or guarantee of the accuracy or completeness of information in this document.
[2025-05-31 16:10] LABS: Age Gdln ACOG Testing Note (.); IGP, rfx Aptima HPV ASCU Note (.)
== END 2025-05-28 14:39 | disposition home or self-care (01) ==
LOC: LAB 14:38
PROVIDERS: PCP Nurse Practitioner Family; Visit Provider Obstetrics & Gynecology
DX: Z01.419 Encounter for gynecological examination (general) (routine) without abnormal findings (principal)
CPT/HCPCS: 88175